=== PATIENT | female | born 1945 | race Caucasian/White ===

== ENCOUNTER → 2017-03-05 15:02 | Outpatient (CLI) | payer MEDICARE, SELFPAY | PROVIDERS: Family Provider Family Medicine Geriatric Medicine; PCP Family Medicine Geriatric Medicine; Visit Provider Family Medicine Geriatric Medicine | DX: N39.0 Urinary tract infection, site not specified (principal); L03.119 Cellulitis of unspecified part of limb | CPT/HCPCS: 87070; 87077; 87086; 87088; 87186; 87205 ==

== ENCOUNTER → 2017-03-15 14:45 | Outpatient (CLI) | payer MEDICARE, SELFPAY ==
[2017-03-15 15:17] LABS: Absolute Neutrophil Count 9.5 X10^3/uL (2.0-7.7); Basophil# 0.03 X10^3/uL; Basophil% 0.2 % (0-1); Eosinophil# 0.09 X10^3/uL; Eosinophils% 0.7 % (0-5); Hematocrit 44.6 % (37-47); Hemoglobin 14.1 g/dl (12.0-15.0); Lymphocyte % 14.6 % (19-41); Mean Corp Hgb Conc 31.6 g/gl (32-36); Mean Corpuscular Hgb 29.4 pg (27.0-32.0); Mean Corpuscular Volume 92.9 fL (81-99); Mean Platelet Vol. 10.5 fl (6.2-12.0); Monocyte# 0.87 X10^3/uL; Monocyte% 7.1 % (0-10); Neutrophil # 9.45 X10^3/uL (2.7-7.7); POSITIVE COUNT NO; POSITIVE DIFFERENTIAL NO; POSITIVE MORPHOLOGY NO; Platelet Count 295 K/mm3 (150-450); RBC Distribution Width CV 18.1 % (11.6-14.6); RBC Distribution Width SD 59.9 fl (35.1-43.9); White Blood Count 12.3 K/mm3 (4.4-11.0)
[2017-03-15 15:55] LABS: ALB/GLOB Ratio 0.9 RATIO (0.9-2.4); AST(SGOT) 17 U/L (15-37); Alanine Aminotransfer ALT/SGPT 32 U/L (13-56); Albumin, Serum 3.4 g/dL (3.2-5.0); Alkaline Phosphatase 80 U/L (45-117); Anion Gap 11 (5-15); BUN 20 mg/dL (7-18); BUN/Creat Ratio 13.2 RATIO (10-20); Calcium,Total 9.6 mg/dL (8.5-10.1); Chloride 111 mmol/L (98-107); Creatinine, Serum 1.52 mg/dL (0.55-1.02); EST Glomerular Filtration Rate 36 mL/min (>60); Est Glom Filt Rate - Afr Amer 43 mL/min (>60); Globulin 3.7 g/dL (2.2-4.2); Glucose 118 mg/dL (74-106); Potassium 4.3 mmol/L (3.5-5.1); Protein, Total 7.1 g/dL (6.4-8.2); Sodium Level 144 mmol/L (136-145)
--- NOTE | 2017-03-15 19:40 | RAD_ITS ---
STUDY: X-RAY - ABDOMEN/PELVIS REASON FOR EXAM: Female, 72 years old. Diarrhea and vomiting TECHNIQUE: Single AP view of the abdomen / pelvis. COMPARISON: None. FINDINGS: Normal visualized lung bases. There are a few air-fluid levels noted in the small and large bowel. There is no demonstrated free abdominal air. The visualized liver, spleen and kidneys are grossly normal in size and morphology. 1 cm calcification right upper quadrant. Normal soft tissue structures. Normal visualized osseous structures. RAD/Abd Inc Decub and/or Erect IMPRESSION: Gallstone or urolith mild ileus. Electronically Signed: Sree Henriquez MD at 20:48 EST , Service support ,
== END ==
PROVIDERS: Family Provider Family Medicine Geriatric Medicine; PCP Family Medicine Geriatric Medicine; Visit Provider Family Medicine Geriatric Medicine
DX: E86.0 Dehydration (principal); N18.3 Chronic kidney disease, stage 3 (moderate); N39.0 Urinary tract infection, site not specified
CPT/HCPCS: 36415; 74019; 80053; 85025; 87086; 87088

== ENCOUNTER 2017-03-15 14:54 | Outpatient (CLI) | payer MEDICARE, SELFPAY ==
[2017-03-15] MEDS: 0.9% Normal Saline 1,000 ML 500 ML IV ×2 (15:10→17:03)
[2017-03-15 15:12] VITALS: BP 139/63; PULSE 72; RESP 18; TEMP 36.1; O2SAT 97; BMI 45.8
--- NOTE | 2017-03-15 17:14 | NURSING ---
RN TO RN REPORT CALLED TO [facility] ON PCU, PT TRANSPORTED TO PCU VIA WHEELCHAIR ACCOMPANIED BY RN FOR REMAINDER OF TREATMENT. PT STABLE, NO PROBLEMS NOTED
[2017-03-15 17:28] VITALS: BP 188/74; PULSE 74; RESP 16; TEMP 36.8; O2SAT 99
[2017-03-15 18:46] VITALS: BP 138/67; PULSE 78; RESP 12; O2SAT 98
== END 2017-03-15 19:30 | disposition home or self-care (01) ==
LOC: MEDOUTP 16:34 → PCU 17:18
PROVIDERS: Family Provider Family Medicine Geriatric Medicine; PCP Family Medicine Geriatric Medicine; Visit Provider Family Medicine Geriatric Medicine
DX: E86.0 Dehydration (principal); R11.2 Nausea with vomiting, unspecified; R19.7 Diarrhea, unspecified; N39.0 Urinary tract infection, site not specified; N18.3 Chronic kidney disease, stage 3 (moderate)
CPT/HCPCS: 96360; 96361; 36415; 74019; 80053; 85025; 87086; 87088; J7030; A4216

== ENCOUNTER → 2017-03-16 11:21 | Outpatient (CLI) | payer MEDICARE, SELFPAY ==
[2017-03-15 15:12] VITALS: BMI 45.8
[2017-03-15 18:46] VITALS: BP 138/67
== END ==
LOC: LAB 11:24 → LABSPEC 11:26
PROVIDERS: Family Provider Family Medicine Geriatric Medicine; PCP Family Medicine Geriatric Medicine; Visit Provider Family Medicine Geriatric Medicine
DX: R19.7 Diarrhea, unspecified (principal)
CPT/HCPCS: 87493

== ENCOUNTER 2017-04-15 14:26 | Emergency (ER) | payer MEDICARE, SELFPAY ==
[2017-04-15 14:27] VITALS: BP 156/75; PULSE 73; RESP 18; TEMP 36.6; O2SAT 97; BMI 41.6
--- NOTE | 2017-04-15 15:05 | RAD_ITS ---
STUDY: X-RAY CHEST REASON FOR EXAM: Female, 72 years old. Shortness of breath TECHNIQUE: Frontal view of the chest COMPARISON: 09/01/2016 FINDINGS: The lungs are clear. There are no pleural effusions. There is no pneumothorax. The heart is normal in size. The patient is status post sternotomy. The visualized osseous structures are within normal limits. RAD/Chest PA and Lateral IMPRESSION: No acute thoracic pathology. Electronically Signed: Andreas Polanco, at 16:01 EDT Tel , Service support ,
--- NOTE | 2017-04-15 15:05 | EKG12_ITS ---
Test Reason : SOB Blood Pressure : / mmHG Vent. Rate : 069 BPM Atrial Rate : 069 BPM P-R Int : 148 ms QRS Dur : 074 ms QT Int : 410 ms P-R-T Axes : 020 005 131 degrees QTc Int : 439 ms Normal sinus rhythm Left ventricular hypertrophy with repolarization abnormality Abnormal ECG Confirmed by BLACK HATCH, PARDEEP ([id number]), clinical editor SHAHNAZ MARINA ([id number]) on 04/18/2017 4:09:03 PM Referred By: JAQUELIN Confirmed By:PARDEEP CLEANING MD
--- NOTE | 2017-04-15 15:16 | ED.VISSUMM ---
- ER Visit Summary Date of Service: 04/15/17 Chief Complaint: Increased urination with discomfort and shortness of breath History of Present Illness: The patient is a 72 F presents with shortness of breath for the past 2 days. The shortness breath has gotten worse. She does complain of mild dyspnea on exertion. Denies orthopnea PND. She does report increased urination. States she has got 25 times since had a 11 pound weight loss. She does complain of slight discomfort with urination. She has not increased her Lasix dose. She does complain of hot and cold. She denies fever or chills. She denies any visual, ocular or auditory symptoms. She denies chest pain, palpitations or heart racing. She denies cough. She denies abdominal pain, nausea, vomiting or diarrhea. She denies constipation. Denies black or maroon stool. She denies myalgias arthralgias. She does complain of generalized weakness without paresthesia, anesthesia or motor weakness. She denies headache. She denies bruising easily even though she is on Xarelto. He is on Xarelto for proximal A. fib. And there is a remote history of DVT many years ago. She has no allergic type reactions or history of. Physical Examination: Patient is obese with a BMI of 41.7. Vital signs remarkable blood pressure 156/75. Head is atraumatic normocephalic. Pupils are equal round reactive. Extraocular muscles are intact. TMs are pearly white with landmarks noted. Nares patent with no drainage. Posterior pharynx without erythema or exudate. Uvula is midline. There is no dysphonia or dysphasia. Trachea is midline. There is no stridor with auscultation of the neck. Heart is regular without murmur, gallop or rub. S1 and S2 are normal. Lungs are clear to auscultation with good movement of air bilaterally. There is soft nontender. Bowel sounds are present but diminished. He does have 2-3+ pitting edema of the feet and both legs. There is a dressing secondary to leg ulcer distal left leg. She is alert and oriented with a nonfocal neurologic exam. Test Results: White count is 14.3 thousand with 80 segs no bands. Electrode panel is remarkable for BUN and creatinine of 45 1.45. Urine is positive for leukoesterase, nitrites and blood. Micro reveals pyuria with 10-25 RBCs 5 epithelial cells and 1+ bacteria. Emergency Department Course and Treatment: I await patient's symptoms of dyspnea will obtain EKG, chest x-ray appropriate blood work. Need to rule out cardiac versus pulmonary etiology. Since she is on Xarelto is not tachycardic or tachypneic doubt pulmonary embolus. Also will obtain UA to assess her complaint of frequency with discomfort. Likewise were obtained since she reports 11 pound weight loss and urinating 25 times a last 36-48 hours. Treatment Plan: Urine culture was sent since patient has numerous allergies. She did receive a dose of Rocephin in the emergency department and was discharged prescription for Macrobid based on her numerous allergies. Disposition: Discharge to home with appropriate home-going instructions for UTI Impression: 1. Urinary tract infection, acute 2. Prerenal azotemia with end-stage renal disease, mild 3. History of type 2 diabetes 4. History of hypertension 5. History of paroxysmal atrial fib on Coumadin This note was generated with [employer] dictation software. It may contain incorrect words, spelling, and punctuation that were not noted in review of the chart prior to signing ED Disposition - Plan for ED Patient: Disposition: Home or Assisted Living Chief Complaint: Shortness of Breath Instructions: ED UTI Cystitis Female Prescriptions: Nitrofurantoin Macrocrystals [Macrobid] 100 mg PO Q12 #14 cap Referrals: Octaviano Franco Chi, MD [Primary Care Provider] - 3-5 Days if not improving
[2017-04-15 15:34] LABS: Absolute Lymphocyte Count 1.64 X10^3/ul (0.83-4.51); Absolute Neutrophil Count 11.3 X10^3/uL (2.0-7.7); Basophil# 0.03 X10^3/uL; Basophil% 0.2 % (0-1); Eosinophils% 0.7 % (0-5); Hematocrit 43.6 % (37-47); Hemoglobin 14.2 g/dl (12.0-15.0); Lymphocyte # 1.64 X10^3/ul (4.0); Lymphocyte % 11.5 % (19-41); Mean Corp Hgb Conc 32.6 g/gl (32-36); Mean Corpuscular Hgb 29.6 pg (27.0-32.0); Monocyte# 1.06 X10^3/uL; Monocyte% 7.4 % (0-10); Neutrophil # 11.31 X10^3/uL (2.7-7.7); Neutrophil % 79.4 % (47-70); Platelet Count 243 K/mm3 (150-450); RBC Distribution Width CV 16.8 % (11.6-14.6); RBC Distribution Width SD 54.7 fl (35.1-43.9); Red Blood Count 4.79 M/mm3 (4.2-5.4); White Blood Count 14.3 K/mm3 (4.4-11.0)
[2017-04-15 15:37] LABS: POSITIVE COUNT NO; POSITIVE DIFFERENTIAL NO; POSITIVE MORPHOLOGY NO
[2017-04-15 15:46] LABS: Anion Gap 8 (5-15); BUN 45 mg/dL (7-18); BUN/Creat Ratio 29.2 RATIO (10-20); Calcium,Total 9.1 mg/dL (8.5-10.1); Chloride 110 mmol/L (98-107); Creatinine, Serum 1.54 mg/dL (0.55-1.02); EST Glomerular Filtration Rate 35 mL/min (>60); Est Glom Filt Rate - Afr Amer 42 mL/min (>60); Estimated Creatinine Clearance 23.37 ml/min; Glucose 145 mg/dL (74-106); Potassium 4.9 mmol/L (3.5-5.1); Sodium Level 142 mmol/L (136-145)
[2017-04-15 16:19] LABS: Mucous, Urine 0 SEEN /hpf (<or=2+); Red Blood Cells-Urine 0 SEEN /hpf (0-5)
[2017-04-15 16:31] LABS: Color, Urine Yellow (Yellow); Glucose, Dipstick Normal (Normal); Ketone-Dipstick Negative (Negative); Leukocyte Esterase-Dipstick 500 /ul (Negative); Nitrite-Dipstick Positive (Negative); Occult Blood-Urine 25 /ul (Negative); Protein-Dipstick 15 mg/dl (Negative); Urine Bilirubin Dipstick Negative (Negative); Urine Clarity Cloudy (Clear); Urine Urobilinogen Normal (Normal)
[2017-04-15 16:36] VITALS: BP 162/92; PULSE 71; RESP 18; O2SAT 99
[2017-04-15 16:41] LABS: Squamous Epithelial Cells - UA 5-10 SEEN /hpf (5-10); White Blood Cells 10-25 SEEN /hpf (0-5)
[2017-04-15 16:43] LABS: Bacteria 1+ /hpf (None Seen); Renal Epithelial Cells 0-5 SEEN /hpf (0-5)
[2017-04-15] MEDS: Ceftriaxone 1 GM/50 mL Premix x1 IV (17:25)
[2017-04-15 18:00] VITALS: BP 140/79; PULSE 68; RESP 17; O2SAT 98
== END 2017-04-15 18:41 | disposition home or self-care (01) ==
PROVIDERS: Emergency Provider Emergency Medicine; Family Provider Family Medicine Geriatric Medicine; PCP Family Medicine Geriatric Medicine
DX: N39.0 Urinary tract infection, site not specified (principal); R79.89 Other specified abnormal findings of blood chemistry; I12.0 Hypertensive chronic kidney disease with stage 5 chronic kidney disease or end stage renal disease; N18.6 End stage renal disease; E11.9 Type 2 diabetes mellitus without complications; I48.0 Paroxysmal atrial fibrillation; I25.10 Atherosclerotic heart disease of native coronary artery without angina pectoris; E78.00 Pure hypercholesterolemia, unspecified; M06.9 Rheumatoid arthritis, unspecified; E66.9 Obesity, unspecified; Z68.41 Body mass index [BMI] 40.0-44.9, adult; Z86.718 Personal history of other venous thrombosis and embolism; Z79.01 Long term (current) use of anticoagulants; Z79.84 Long term (current) use of oral hypoglycemic drugs; Z79.02 Long term (current) use of antithrombotics/antiplatelets; Z79.891 Long term (current) use of opiate analgesic; Z79.899 Other long term (current) drug therapy
CPT/HCPCS: 71046; 80048; 81001; 84484; 85025; 87086; 87088; 87186; 93005; 96365; 99285; J7050; A4216

== ENCOUNTER → 2017-04-18 16:55 | Outpatient (CLI) | payer MEDICARE, SELFPAY ==
[2017-04-18 17:52] LABS: Absolute Lymphocyte Count 1.84 X10^3/ul (0.83-4.51); Basophil# 0.02 X10^3/uL; Basophil% 0.2 % (0-1); Eosinophil# 0.33 X10^3/uL; Eosinophils% 2.5 % (0-5); Hematocrit 44.9 % (37-47); Hemoglobin 14.6 g/dl (12.0-15.0); Lymphocyte # 1.84 X10^3/ul (4.0); Lymphocyte % 13.8 % (19-41); Mean Corp Hgb Conc 32.5 g/gl (32-36); Mean Corpuscular Hgb 30.2 pg (27.0-32.0); Mean Corpuscular Volume 92.8 fL (81-99); Mean Platelet Vol. 11.2 fl (6.2-12.0); Monocyte# 0.98 X10^3/uL; Monocyte% 7.4 % (0-10); Neutrophil # 9.96 X10^3/uL (2.7-7.7); Neutrophil % 74.8 % (47-70); Platelet Count 178 K/mm3 (150-450); RBC Distribution Width CV 16.5 % (11.6-14.6); RBC Distribution Width SD 54.6 fl (35.1-43.9); Red Blood Count 4.84 M/mm3 (4.2-5.4); White Blood Count 13.3 K/mm3 (4.4-11.0)
[2017-04-18 17:56] LABS: POSITIVE COUNT NO; POSITIVE DIFFERENTIAL NO; POSITIVE MORPHOLOGY NO
[2017-04-18 18:06] LABS: D-Dimer Quantitative (DVT/PE) 0.57 FEU/ug/m (0.27-0.49)
[2017-04-18 18:16] LABS: BNP,B-Type NATRIURETIC PEPTIDE 62.1 pg/mL (0-100)
[2017-04-18 19:15] LABS: AST(SGOT) 18 U/L (15-37); Alanine Aminotransfer ALT/SGPT 34 U/L (13-56); Albumin, Serum 3.3 g/dL (3.2-5.0); Alkaline Phosphatase 51 U/L (45-117); Anion Gap 11 (5-15); BUN 51 mg/dL (7-18); BUN/Creat Ratio 30.5 RATIO (10-20); CPK Total, Creatine Kinase 70 U/L (26-192); Chloride 106 mmol/L (98-107); Creatinine, Serum 1.67 mg/dL (0.55-1.02); EST Glomerular Filtration Rate 32 mL/min (>60); Est Glom Filt Rate - Afr Amer 39 mL/min (>60); Globulin 3.2 g/dL (2.2-4.2); Glucose 75 mg/dL (74-106); Potassium 5.5 mmol/L (3.5-5.1); Protein, Total 6.5 g/dL (6.4-8.2); Sodium Level 140 mmol/L (136-145); Thyroid Stim Hormone (TSH) 0.75 uIU/mL (0.358-3.74)
== END ==
LOC: POLAB3 16:56
PROVIDERS: Family Provider Family Medicine Geriatric Medicine; PCP Family Medicine Geriatric Medicine; Visit Provider Family Medicine Geriatric Medicine
DX: I10 Essential (primary) hypertension (principal); R07.9 Chest pain, unspecified; R06.02 Shortness of breath
CPT/HCPCS: 36415; 71046; 80053; 82550; 83874; 83880; 84443; 84484; 85025; 85379; 93005

== ENCOUNTER → 2017-04-18 20:29 | Outpatient (CLI) | payer MEDICARE, SELFPAY ==
--- NOTE | 2017-04-18 20:46 | RAD_ITS ---
STUDY: X-RAY CHEST REASON FOR EXAM: Female, 72 years old. Dyspnea TECHNIQUE: PA and lateral views of the chest. COMPARISON: Previous study of 04/15/2017 FINDINGS: The lungs are clear and expanded. There is no demonstrated pleural abnormality. Normal size heart. Status post sternotomy changes are present. Normal mediastinum and alee. Normal visualized pulmonary arteries. There are calcified plaques of the aortic arch. There is demineralization of the osseous structures. There are diffuse degenerative changes of the thoracic spine. Normal visualized ribs, clavicles, and shoulders. There is no demonstrated abnormality of the visualized soft tissue structures of the upper abdomen. RAD/Chest PA and Lateral IMPRESSION: Status post sternotomy. Calcified plaques of the aortic arch. Generalized osteopenia. Diffuse degenerative changes of the thoracic spine. No acute cardiopulmonary disease process is seen. Chest findings are stable in the interval. Electronically Signed: Lester Maurer MD at 21:36 EDT , Service support ,
--- NOTE | 2017-04-18 21:03 | EKG12_ITS ---
Test Reason : SOB Blood Pressure : / mmHG Vent. Rate : 082 BPM Atrial Rate : 082 BPM P-R Int : 152 ms QRS Dur : 074 ms QT Int : 380 ms P-R-T Axes : -17 002 131 degrees QTc Int : 443 ms Normal sinus rhythm Marked ST abnormality, possible lateral subendocardial injury Abnormal ECG When compared with ECG of 15-APR-2017 15:14, T wave inversion less evident in Lateral leads Confirmed by SILVIA STUART ([id number]), editorial assistant SHAHNAZ MARINA ([id number]) on 04/19/2017 10:36:39 AM Referred By: RAYRAY Confirmed By:SILVIA STUART
== END ==
PROVIDERS: Family Provider Family Medicine Geriatric Medicine; PCP Family Medicine Geriatric Medicine; Visit Provider Family Medicine Geriatric Medicine
DX: R07.9 Chest pain, unspecified (principal)
CPT/HCPCS: 71046; 93005

== ENCOUNTER → 2017-04-19 10:33 | Outpatient (CLI) | payer MEDICARE, SELFPAY ==
--- NOTE | 2017-04-19 10:35 | RAD_ITS ---
STUDY: X-RAY CHEST REASON FOR EXAM: Female, 72 years old. Shortness of breath. TECHNIQUE: PA and lateral views of the chest. COMPARISON: Comparison is made with prior study dated April 18, 2017. FINDINGS: The lungs are clear and expanded. There is no demonstrated pleural abnormality. Sternal cerclage wires and vascular clips are present from a prior sternotomy and coronary artery bypass graft procedure (CABG). Normal mediastinum and alee. Normal visualized pulmonary arteries. There is atherosclerotic tortuosity of the aortic arch and descending thoracic aorta. There are diffuse degenerative changes of the visualized thoracic spine. Increased kyphosis. Normal visualized ribs, clavicles, and shoulders. There is no demonstrated abnormality of the visualized soft tissue structures of the upper abdomen. RAD/Chest PA and Lateral IMPRESSION: No acute abnormality is seen. Electronically Signed: Milo Hughes MD at 11:17 EDT Tel [phone], Service support ,
--- NOTE | 2017-04-19 10:53 | NM_ITS ---
CLINICAL: Female, 72 years old. Shortness of breath. NUCLEAR VENTILATION/PERFUSION - LUNG TECHNIQUE: The patient was administered 5.5 mCi of Tc MAA followed by a perfusion lung scan. The patient was administered 49.8 mCi of Tc DTPA aerosol followed by a ventilation lung scan. Comparison made to prior chest radiograph dated . COMPARISON STUDIES : Comparison is made with prior chest radiograph done earlier in the day. FINDINGS: The pulmonary perfusion study demonstrates uniform perfusion throughout both lung gallegos. There are no demonstrated segmental or subsegmental perfusion defects The ventilation study demonstrates uniform ventilation throughout both lung gallegos. There are no segmental or subsegmental ventilation abnormalities. NM/Lung Scan Vent/Perf IMPRESSION: Normal 99m Tc MAA pulmonary perfusion Tc DTPA aerosol ventilation imaging survey, according to revised PIOPED interpretive criteria. Electronically Signed: Milo Hughes MD at 12:38 EDT Tel [phone], Service support ,
== END ==
PROVIDERS: Family Provider Family Medicine Geriatric Medicine; PCP Family Medicine Geriatric Medicine; Visit Provider Family Medicine Geriatric Medicine
DX: R06.02 Shortness of breath (principal)
CPT/HCPCS: 71046; 78582; A9540; A9567

== ENCOUNTER 2017-04-26 09:19 | Emergency (ER) | payer MEDICARE, SELFPAY ==
[2017-04-26 09:21] VITALS: BP 140/58; PULSE 64; RESP 16; TEMP 36.6; O2SAT 97; BMI 41.8
--- NOTE | 2017-04-26 09:40 | RAD_ITS ---
STUDY: X-RAY - LEFT TIBIA AND FIBULA REASON FOR EXAM: Female, 72 years old. Pain following injury. TECHNIQUE: view(s) of the tibia and fibula were obtained. COMPARISON: None. FINDINGS: Normal visualized tibia. Normal visualized fibula. Diffuse soft tissue swelling. RAD/Tibia & Fibula 2 Views IMPRESSION: Diffuse soft tissue swelling. Electronically Signed: Milo Hughes MD at 10:56 EDT Tel [phone], Service support ,
--- NOTE | 2017-04-26 09:40 | CT_ITS ---
STUDY: CT BRAIN WITHOUT CONTRAST REASON FOR EXAM: Female, 72 years old. Laceration following a recent fall. RADIATION DOSAGE (If Supplied By Facility): CTDIvol = ( 44.99 ) mGy, DLP = ( 745.49 ) mGycm TECHNIQUE: Transaxial CT imaging of the brain was performed without administration of intravenous contrast material. Individualized dose optimization techniques were used for this CT. COMPARISON: Comparison is made with prior study dated September 10, 2015. FINDINGS: Soft tissue calcifications overlying the frontal bone. This is unchanged. Normal calvarium. There is moderate cerebral atrophy with widening of the extra-axial spaces and ventricular dilatation. There are areas of decreased attenuation within the white matter tracts of the supratentorial brain, consistent with microvascular disease changes. Normal basal ganglia and thalami. Normal brainstem. There is mild cerebellar atrophy. There is no intracranial hemorrhage. There are no findings of an acute ischemic infarction. Atherosclerotic calcification of the cavernous portions of the internal carotid arteries bilaterally. Normal visualized paranasal sinuses. CT/Brain/Head without Contrast IMPRESSION: Chronic involutional changes of the brain. Electronically Signed: Milo Hughes MD at 11:20 EDT Tel [phone], Service support ,
--- NOTE | 2017-04-26 09:41 | ED.VISSUMM ---
- ER Visit Summary Date of Service: 04/26/17 Chief Complaint: Fall History of Present Illness: The patient is a [address] Franco. She reports that she was sitting on the toilet seat drying her legs when it shifted and she fell off this. She suffered a laceration to her left leg. She reports she has pain of the 7 out of 10 severity. Her tetanus is up-to-date. She also reports she hit her ahead. She denies loss of consciousness. No neck, back, shoulder, wrist, or hip pain. Patient reports that she is currently being treated for a UTI. States that she cannot take the vast majority of oral antibiotics and has been getting a shot of Rocephin IM daily and Dr. Franco's office. Physical Examination: Vitals: Stable. Afebrile. Neck: No vertebral tenderness. Full ROM without difficulty. Cleared by NEXUS criteria. Back: No vertebral tenderness. General: A&O x 3. NAD. Cardiovascular exam: Regular rate and rhythm, no murmur, rub or gallop. Respiratory exam: Chest nontender. No crepitus. Clear to auscultation bilaterally. No wheezes or stridor. Abdominal exam: Soft, nontender, nondistended, normal bowel sounds. No pain in RUQ or LUQ specifically. No peritoneal signs. Extremity: 10 cm laceration to the proximal lateral portion of her left leg. Moderate tenderness palpation surrounding this. 2+ dorsalis pedis pulse. 2+ pitting edema of her lower extremities bilaterally.. Test Results: CT brain shows chronic changes. X-rays negative for fracture. Emergency Department Course and Treatment: Patient was treated with oxycodone for her pain. She had her wound anesthetized and repaired. She tolerated it well. She is given dose Rocephin IM. Treatment Plan: The patient was discussed with Dr. Franco. She will be discharged instructions to have her sutures removed in 10-14 days. Return to the emergency department for any worsening symptoms. Disposition: To home in improved and stable condition. Impression: 1. Fall. 2. Left leg laceration, 10 cm, repaired. 3. UTI. 3. Coagulopathy on Xarelto. Procedure note: Wound was cleansed with chlorhexidine soap. Anesthetized with 1% lidocaine without epinephrine. Copiously irrigated with normal saline. Wound was explored there is no foreign material present. It was closed with 11 simple interrupted 4-0 ethilon sutures. The patient tolerated it well. This note was generated with [employer] dictation software. It may contain incorrect words, spelling, and punctuation that were not noted in review of the chart prior to signing ED Disposition - Plan for ED Patient: Chief Complaint: Laceration Instructions: ED Laceration Ext Sutr Stap Tape Prescriptions: Oxycodone HCl/Acetaminophen [Percocet 5/325] 1 tablet PO Q6H PRN PRN 5 Days #20 tablet PRN Reason: Pain Docusate Sodium [Colace] 100 mg PO DAILY #20 capsule Referrals: Octaviano Franco Chi, MD [Primary Care Provider] - 10-14 Days suture removal
--- NOTE | 2017-04-26 09:52 | NURSING ---
NO LW OR POA
[2017-04-26] MEDS: oxyCODONE 5 MG Tablet 10 MG PO (10:36)
[2017-04-26] MEDS: Ceftriaxone 1 GM Vial IM (10:37)
[2017-04-26 13:06] VITALS: BP 139/79; PULSE 76; RESP 16; O2SAT 94
== END 2017-04-26 13:07 | disposition home or self-care (01) ==
LOC: ED 10:30
PROVIDERS: Emergency Provider Emergency Medicine; Family Provider Family Medicine Geriatric Medicine; PCP Family Medicine Geriatric Medicine
DX: S81.812A Laceration without foreign body, left lower leg, initial encounter (principal); N39.0 Urinary tract infection, site not specified; Z79.02 Long term (current) use of antithrombotics/antiplatelets; I25.110 Atherosclerotic heart disease of native coronary artery with unstable angina pectoris; E11.9 Type 2 diabetes mellitus without complications; I10 Essential (primary) hypertension; Z79.84 Long term (current) use of oral hypoglycemic drugs; E78.00 Pure hypercholesterolemia, unspecified; Z87.891 Personal history of nicotine dependence; Z79.891 Long term (current) use of opiate analgesic; Z79.899 Other long term (current) drug therapy; W18.11XA Fall from or off toilet without subsequent striking against object, initial encounter; Y93.89 Activity, other specified; Y92.002 Bathroom of unspecified non-institutional (private) residence as the place of occurrence of the external cause; Y99.8 Other external cause status
CPT/HCPCS: 12004; 70450; 73590; 96372; 99285

== ENCOUNTER → 2017-04-27 12:50 | Outpatient (CLI) | payer MEDICARE, SELFPAY ==
[2017-04-27 13:33] LABS: Absolute Lymphocyte Count 2.42 X10^3/ul (0.83-4.51); Absolute Neutrophil Count 7.3 X10^3/uL (2.0-7.7); Basophil# 0.03 X10^3/uL; Basophil% 0.3 % (0-1); Eosinophil# 0.04 X10^3/uL; Eosinophils% 0.4 % (0-5); Hematocrit 43.3 % (37-47); Hemoglobin 13.7 g/dl (12.0-15.0); Lymphocyte # 2.42 X10^3/ul (4.0); Lymphocyte % 22.7 % (19-41); Mean Corp Hgb Conc 31.6 g/gl (32-36); Mean Corpuscular Hgb 29.6 pg (27.0-32.0); Mean Corpuscular Volume 93.5 fL (81-99); Mean Platelet Vol. 10.1 fl (6.2-12.0); Monocyte# 0.79 X10^3/uL; Monocyte% 7.4 % (0-10); Neutrophil # 7.28 X10^3/uL (2.7-7.7); Neutrophil % 68.4 % (47-70); POSITIVE COUNT NO; POSITIVE DIFFERENTIAL NO; POSITIVE MORPHOLOGY NO; Platelet Count 239 K/mm3 (150-450); RBC Distribution Width CV 16.5 % (11.6-14.6); RBC Distribution Width SD 56.4 fl (35.1-43.9); Red Blood Count 4.63 M/mm3 (4.2-5.4); White Blood Count 10.6 K/mm3 (4.4-11.0)
[2017-04-27 13:51] LABS: AST(SGOT) 24 U/L (15-37); Alanine Aminotransfer ALT/SGPT 44 U/L (13-56); Albumin, Serum 3.2 g/dL (3.2-5.0); Alkaline Phosphatase 51 U/L (45-117); Anion Gap 9 (5-15); BUN 65 mg/dL (7-18); BUN/Creat Ratio 25.3 RATIO (10-20); Calcium,Total 9.7 mg/dL (8.5-10.1); Chloride 96 mmol/L (98-107); Cholesterol 189 mg/dL (200); Creatinine, Serum 2.57 mg/dL (0.55-1.02); EST Glomerular Filtration Rate 19 mL/min (>60); Est Glom Filt Rate - Afr Amer 24 mL/min (>60); Globulin 3.2 g/dL (2.2-4.2); Glucose 127 mg/dL (74-106); High Density Lipoprotein 55 mg/dL; Potassium 5.2 mmol/L (3.5-5.1); Protein, Total 6.4 g/dL (6.4-8.2); Sodium Level 135 mmol/L (136-145); Thyroid Stim Hormone (TSH) 0.77 uIU/mL (0.358-3.74); Triglycerides 207 mg/dL; Very Low Density Lipoprotein 41 mg/dL (5-40)
== END ==
PROVIDERS: Family Provider Family Medicine Geriatric Medicine; PCP Family Medicine Geriatric Medicine; Visit Provider Family Medicine Geriatric Medicine
DX: E11.9 Type 2 diabetes mellitus without complications (principal); E55.9 Vitamin D deficiency, unspecified; E78.4 Other hyperlipidemia; I10 Essential (primary) hypertension
CPT/HCPCS: 36415; 80053; 80061; 82306; 84443; 85025

== ENCOUNTER → 2017-05-01 15:03 | Outpatient (CLI) | payer MEDICARE, SELFPAY ==
[2017-05-01 16:24] LABS: Absolute Lymphocyte Count 1.77 X10^3/ul (0.83-4.51); Absolute Neutrophil Count 6.6 X10^3/uL (2.0-7.7); Basophil# 0.02 X10^3/uL; Basophil% 0.2 % (0-1); Eosinophil# 0.08 X10^3/uL; Eosinophils% 0.9 % (0-5); Hematocrit 40.2 % (37-47); Hemoglobin 12.9 g/dl (12.0-15.0); Lymphocyte # 1.77 X10^3/ul (4.0); Lymphocyte % 19.2 % (19-41); Mean Corp Hgb Conc 32.1 g/gl (32-36); Mean Corpuscular Hgb 30.4 pg (27.0-32.0); Mean Corpuscular Volume 94.6 fL (81-99); Mean Platelet Vol. 10.5 fl (6.2-12.0); Monocyte# 0.72 X10^3/uL; Monocyte% 7.8 % (0-10); Neutrophil # 6.59 X10^3/uL (2.7-7.7); Neutrophil % 71.4 % (47-70); Platelet Count 219 K/mm3 (150-450); RBC Distribution Width CV 16.1 % (11.6-14.6); RBC Distribution Width SD 53.9 fl (35.1-43.9); Red Blood Count 4.25 M/mm3 (4.2-5.4); White Blood Count 9.2 K/mm3 (4.4-11.0)
[2017-05-01 16:32] LABS: POSITIVE COUNT NO; POSITIVE DIFFERENTIAL NO; POSITIVE MORPHOLOGY NO
[2017-05-01 16:48] LABS: Anion Gap 10 (5-15); BUN 42 mg/dL (7-18); BUN/Creat Ratio 28.6 RATIO (10-20); Calcium,Total 9.3 mg/dL (8.5-10.1); Chloride 106 mmol/L (98-107); Creatinine, Serum 1.47 mg/dL (0.55-1.02); EST Glomerular Filtration Rate 37 mL/min (>60); Est Glom Filt Rate - Afr Amer 45 mL/min (>60); Glucose 156 mg/dL (74-106); Potassium 4.8 mmol/L (3.5-5.1); Sodium Level 140 mmol/L (136-145)
== END ==
PROVIDERS: Family Provider Family Medicine Geriatric Medicine; PCP Family Medicine Geriatric Medicine; Visit Provider Family Medicine Geriatric Medicine
DX: D64.9 Anemia, unspecified (principal); N18.3 Chronic kidney disease, stage 3 (moderate)
CPT/HCPCS: 36415; 80048; 85025

== ENCOUNTER 2017-05-03 11:00 | Outpatient (RCR) | payer MEDICARE, SELFPAY ==
[2017-04-05 10:32] VITALS: BP 150/73; PULSE 59; RESP 18; TEMP 35.6
--- NOTE | 2017-04-05 13:30 | HP.PCM_ITS ---
(1) Ulcer of left lower extremity with fat layer exposed Status: Acute Current Visit: Yes Code(s): L97.922 - Non-pressure chronic ulcer of unspecified part of left lower leg with fat layer exposed (2) PVD (peripheral vascular disease) Status: Suspected Current Visit: Yes Code(s): I73.9 - Peripheral vascular disease, unspecified (3) Malnutrition Status: Acute Current Visit: Yes Code(s): E46 - Unspecified protein-calorie malnutrition (4) Controlled diabetes mellitus Status: Acute Current Visit: Yes Code(s): E11.9 - Type 2 diabetes mellitus without complications (5) Edema, lower extremity Status: Acute Current Visit: Yes Code(s): R60.0 - Localized edema History of Present Illness Date of Service: 04/05/17 Chief Complaint: Left anterior lower leg ulceration that will not heal. History of Wound: This 72 year old female has significant history of diabetes and multiple sclerosis, bilateral traumatic leg wounds, and other comorbidities. She presents to office today after being referred by Dr. Franco. Per his note, the patient had finished up a prescription for keflex and is on rocephin. Patient states that she recently got a new bed. She says since she is short she had to get a stool in order to get onto her bed. She fell on the stool and got an ulcer on the left anterior leg. She says this happed close to two weeks ago and has not seen much of an improvment since. She has been dressing the ulcer site with bacitracin. She denies any purulence, malodor, redness around the ulcer. She also denies any feelings of nausea, vomiting, fever, or chills currently. Past Medical History Past Medical History: Chronic Problems S/P PTCA (percutaneous transluminal coronary angioplasty) (Chronic) S/P CABG (coronary artery bypass graft) (Chronic) Paroxysmal atrial fibrillation (Chronic) CAD (coronary artery disease) (Chronic) DM2 (diabetes mellitus, type 2) (Chronic) Dyslipidemia (Chronic) Morbid obesity (Chronic) Multiple sclerosis (Chronic) Trigeminal neuralgia (Chronic) Carcinoma of lip (Chronic) Hyperlipidemia (Chronic) Hypertension (Chronic) Contusion of left lower leg (Chronic) Infected traumatic hematoma wound left anterior leg Diabetic ulcer of both lower extremities (Chronic) Diabetic ulcer of lower extremity (Chronic) Ulcer of left lower leg (Chronic) Ulcer of right leg (Chronic) Ulcer of left lower extremity (Chronic) Ulcer of left cabrera (Chronic) Venous insufficiency of both lower extremities (Chronic) Surgical History: angioplasty, appendectomy, cholecystectomy, coronary bypass surgery, hysterectomy, tonsillectomy, - - R ankle surgery with hardware. placement of stents (cardiac or lower extremity. patient is unsure). excision upper lip carcinoma. Incision and drainage and excisional debridement infected traumatic open hematoma wound right anterior leg (90 cm2) and incision and drainage and excisional debridement infected traumatic open hematoma wound left anterior leg (72 cm2) - 12/29/14. Allergies/Adverse Reactions: Allergies ciprofloxacin [From Cipro] Allergy (Verified 09/07/16 15:33) Hives ciprofloxacin HCl [From Cipro] Allergy (Verified 09/07/16 15:33) Hives Latex, Natural Rubber Allergy (Verified 09/07/16 15:33) Rash Penicillins [PCN] Allergy (Verified 09/07/16 15:33) Hives Home Medications: Ambulatory Orders Medication Instructions Recorded Gabapentin [Neurontin] 800 mg PO TIDCM 09/01/16 Metoprolol Tartrate [Lopressor 50 mg PO BID 09/01/16 (beta man)] Mirabegron [Myrbetriq] 1 tab PO DAILY 09/01/16 Nitroglycerin [Nitrostat] 0.4 mg SUBLINGUAL Q5M PRN 09/01/16 Pantoprazole Sodium [Protonix] 40 mg PO DAILY 09/01/16 Potassium Chloride [K-Dur] 10 meq PO BID 09/01/16 Rivaroxaban [Xarelto] 15 mg PO DAILY 09/01/16 Amiodarone HCl [Cordarone] 200 mg PO DAILY #90 tablet 09/02/16 Metformin HCl 1 tab PO DAILY 09/07/16 Furosemide [Lasix] 40 mg PO DAILY 09/11/16 magnesium oxide 400 mg tablet 400 mg PO BID #180 tab 01/16/17 losartan 100 mg tablet 100 mg PO DAILY #90 tab 02/23/17 Clotrimazole/Betamethasone 1 applic TOPICAL BID 03/15/17 [Lotrisone] Docusate Sodium [Colace] 50 mg PO DAILY 03/15/17 Doxycycline 100 mg PO BID 03/15/17 Spironolactone 25 mg PO DAILY 03/15/17 - Family History Maternal Heart Disease, Hypertension Paternal Heart Disease, Hypertension, - - skin cancer. Sibling Diabetes Lives: With Family - Sister Smoking Status: Former smoker Review of Systems Constitutional: Denies: Chills, Fever, Weight Change Cardiovascular: Denies: Chest Pain, Palpitations Respiratory: Denies: Cough, Shortness of Breath Musculoskeletal: Reports: Leg Pain - Left anterior lower leg Skin: Reports: Wounds - Ulcer to the anterior lower left leg Neurological: Denies: Numbness, Tingling - Physical Exam Vital Signs Temp Pulse Resp BP 96.0 F L 59 L 18 150/73 H 04/05/17 10:32 04/05/17 10:32 04/05/17 10:32 04/05/17 10:32 General: Alert, Oriented x3, Cooperative, No apparent distress Extremities: Capillary Refill Less than 3 Seconds, No Calf Tenderness - Negative Sunita and Abraham sign, Edema - Bilateral lower extremity edema, Peripheral Pulses Normal - DP pulses palpable and PT pulses nonpalpable due to marti-malleolar pitting edema Skin: Ulcer/ Wound - Ulcer appreciated to the anterior left lower leg. Ulcer measurements are noted below. Ulcer base is a mixture of granular tissue, adherent slough, fibrin, and hyperkeratotic rim. Slight serous drainage appreciated, however no purulence was noted. No increase in warmth, no probing , no tracking, no undermining, and no surrounding cellulitis appreciated at this time. No other signs of local infection appreciated. Wound Measurements and Assessment WC - Nurse 1 - General Ulcer Measurement Start: 04/05/17 10:32 Freq: Status: Active Protocol: Activity Type Activity Date Activity User E-Sign Co-Sign Detail Recorded Client Recorded Date Recorded By Document 04/05/17 10:32 [id number] 04/05/17 10:42 04/05/17 10:32 Wound Center Nurse 1 [Ulcer Assessment] #1,left lower medial lef -Combined with other wound No -Current Size (cm) - Length 2.4 -Current Size (cm) - Width 1.3 -Current Size (cm) - Depth 0.1 -Total Square Cm 3.12 -Date of Last Picture (Recall this 04/05/17 field) -Photo Taken Yes -Epithelialization Small 1-33% -Tunneling No -Undermining/Tunneling No -Circular Undermining No -Classification - Thickness Full Thickness without Exposed Support Structure -Exudate Amt Small (1-33%) -Exudate Type Serosanguineous -Wound Margin Distinct, Outline Attached -Granulation Amt Small (1-33%) -Granulation Quality [place] -Slough/Fibrin Yes -Necrosis Amt Medium (34-66%) -Necrotic Tissue Type Adherent Slough -Structure Exposed Fascia Fat Layer Exposed -Texture (Marti-wound Skin Appearance) Friable Localized Edema -Moisture (Marti-wound Skin Appearance No Abnormality ) -Color (Marti-wound Skin Appearance) Ecchymosis Erythema -Temperature (Marti-wound Skin No Abnormality Appearance) (Pt Warm) -Tenderness on Palpation (Marti-wound Yes Skin Appearance) -Ulcer Cleansing Rinsed/ Irrigated with Saline -Foul Odor after Cleansing No -Anesthetic Used 5% Lidocaine Gel [Edema Assessment] -Lower Limb Edema Present Yes -Right Calf (cm) 39.5 -Right Ankle (cm) 28.5 -Left Calf (cm) 40.0 -Left Ankle (cm) 26.5 WC - Nurse 2 - General Ulcer CM Notes Start: 04/05/17 10:32 Freq: Status: Active Protocol: Activity Type Activity Date Activity User E-Sign Co-Sign Detail Recorded Client Recorded Date Recorded By Document 04/05/17 10:33 MW [id number] 04/05/17 10:44 MW 04/05/17 10:33 Wound Center Nurse 2 [Procedure/Treatment] #3 LEFT MEDIAL LE (TRAUMA) -Time 10:35 -Correct Patient Yes -Correct Side, Site, Position Yes -Correct Procedure Yes -Procedure Performed Yes -Type of Procedure Debridement -Clinical Debridement Subcutaneous -Post Debridement Size (cm) - Length 2.4 -Post Debridement Size (cm) - Width 1.4 -Post Debridement Size (cm) - Depth 0.2 -Total Square Cm 3.36 -Wound/Ulcer Outcome Not Healed -Ulcer Cleansing Rinsed/ Irrigated with Saline -Foul Odor after Cleansing No -Bioengineered Tissue No -Bleeding Controlled with Pressure -Treatment Response Procedure Tolerated Well [See Physician Procedure note for Specifics] Pain Scale: 0-10 Numeric [Pain] -Is Patient Pain Free? Yes Musculoskeletal: Tenderness - Tenderness appreciated to palpation of the ulcer. Neurological: Sensory exam intact to light touch and pain Psych/Mental Status: Normal Affect, Appropriate Debridement Note Post-Debridement Measurements/Treatment WC - Nurse 2 - General Ulcer CM Notes Start: 04/05/17 10:32 Freq: Status: Active Protocol: Activity Type Activity Date Activity User E-Sign Co-Sign Detail Recorded Client Recorded Date Recorded By Document 04/05/17 10:33 MW [id number] 04/05/17 10:44 MW 04/05/17 10:33 Wound Center Nurse 2 #3 LEFT MEDIAL LE (TRAUMA) -Time 10:35 -Correct Patient Yes -Correct Side, Site, Position Yes -Correct Procedure Yes -Procedure Performed Yes -Type of Procedure Debridement -Clinical Debridement Subcutaneous -Post Debridement Size (cm) - Length 2.4 -Post Debridement Size (cm) - Width 1.4 -Post Debridement Size (cm) - Depth 0.2 -Total Square Cm 3.36 -Wound/Ulcer Outcome Not Healed -Ulcer Cleansing Rinsed/ Irrigated with Saline -Foul Odor after Cleansing No -Bioengineered Tissue No -Bleeding Controlled with Pressure -Treatment Response Procedure Tolerated Well Pain Scale: 0-10 Numeric Is Patient Pain Free? Yes Wound debrided: Left anterior lower leg Laterality: Left Wound Grade/Stage: 2 Type of Debridement: Excisional debridement Anesthesia Used: 4% Lidocaine Solution Depth: in the subcutaneous layer Percentage of wound debrided: 100 Instrument Used: 3mm curette Tissue Removed: Adherent slough, fibrin, hyperkeratotic rim Severity: Fat Layer Exposed Amount of bleeding with debridement: Mild Bleeding Controlled with: Pressure Patient tolerated procedure well Assessment/Plan Active Problems Ulcer of left lower extremity with fat layer exposed (Acute) Malnutrition (Acute) Controlled diabetes mellitus (Acute) Edema, lower extremity (Acute) Assessment: Ulcer to left lower leg with fat layer exposed. DM II. Lower extremity edema Plan: Initial patient examination evaluation was performed. The ulcer to the left anterior lower leg was debrided as noted in the clinical panel. Post debridement, the ulcer site was carefully cleansed and then dressed with Aquacel Ag, dry sterile dressing, and tubigrip. This is to be changed on a daily basis in this manner. She is to try and keep all pressure off of the area otherwise. No antibiotics were prescribed today due to there being no apparent signs of local infection. Baseline lab work was also ordered today including a CBC with differential, CMP, prealbumin, ESR, hemoglobin A1c. LEAS and bilateral venous Doppler exams were ordered. These results will be reviewed at the follow -up visit. Dressing supplies were ordered for the patient. I recommended a high-protein diet for this patient to supplement wound healing. Patient was educated on all signs and symptoms of local and systemic infection, and was instructed to go to the ER immediately should she notice any. All other questions were answered to the patient's satisfaction. The patient will follow- up in clinic in 1 week to check on progress, or sooner if needed.
[2017-04-05 14:30] LABS: Absolute Lymphocyte Count 1.38 X10^3/ul (0.83-4.51); Absolute Neutrophil Count 10.1 X10^3/uL (2.0-7.7); Basophil# 0.02 X10^3/uL; Basophil% 0.2 % (0-1); Eosinophils% 0.8 % (0-5); Hematocrit 42.9 % (37-47); Hemoglobin 13.5 g/dl (12.0-15.0); Lymphocyte # 1.38 X10^3/ul (4.0); Lymphocyte % 10.8 % (19-41); Mean Corp Hgb Conc 31.5 g/gl (32-36); Mean Corpuscular Hgb 29.2 pg (27.0-32.0); Mean Corpuscular Volume 92.7 fL (81-99); Mean Platelet Vol. 10.7 fl (6.2-12.0); Monocyte# 1.08 X10^3/uL; Monocyte% 8.4 % (0-10); Neutrophil # 10.14 X10^3/uL (2.7-7.7); Neutrophil % 79.2 % (47-70); POSITIVE COUNT NO; POSITIVE DIFFERENTIAL NO; POSITIVE MORPHOLOGY NO; Platelet Count 251 K/mm3 (150-450); RBC Distribution Width CV 17.1 % (11.6-14.6); RBC Distribution Width SD 57.9 fl (35.1-43.9); Red Blood Count 4.63 M/mm3 (4.2-5.4); White Blood Count 12.8 K/mm3 (4.4-11.0)
[2017-04-05 14:37] LABS: Erythrocyte Sedimentation Rate 18 mm/hr (0-30)
[2017-04-05 14:58] LABS: Hemoglobin A1c 6.2 % (4.2-6.3)
[2017-04-05 15:06] LABS: AST(SGOT) 14 U/L (15-37); Alanine Aminotransfer ALT/SGPT 32 U/L (13-56); Albumin, Serum 3.2 g/dL (3.2-5.0); Alkaline Phosphatase 53 U/L (45-117); Anion Gap 9 (5-15); BUN 47 mg/dL (7-18); BUN/Creat Ratio 31.3 RATIO (10-20); Calcium,Total 9.5 mg/dL (8.5-10.1); Chloride 103 mmol/L (98-107); EST Glomerular Filtration Rate 36 mL/min (>60); Est Glom Filt Rate - Afr Amer 44 mL/min (>60); Globulin 3.2 g/dL (2.2-4.2); Glucose 68 mg/dL (74-106); Potassium 5.5 mmol/L (3.5-5.1); Prealbumin 34.5 mg/dL (20.0-40.0); Protein, Total 6.4 g/dL (6.4-8.2); Sodium Level 138 mmol/L (136-145)
[2017-04-12 10:25] VITALS: BP 148/87; PULSE 79; RESP 18; TEMP 36.2
--- NOTE | 2017-04-12 15:09 | PCM.WC.PN ---
(1) Ulcer of left lower extremity with fat layer exposed Status: Acute Current Visit: Yes Code(s): L97.922 - Non-pressure chronic ulcer of unspecified part of left lower leg with fat layer exposed (2) PVD (peripheral vascular disease) Status: Acute Current Visit: Yes Code(s): I73.9 - Peripheral vascular disease, unspecified (3) Malnutrition Status: Acute Current Visit: Yes Code(s): E46 - Unspecified protein-calorie malnutrition (4) Controlled diabetes mellitus Status: Chronic Current Visit: Yes Code(s): E11.9 - Type 2 diabetes mellitus without complications (5) Edema, lower extremity Status: Acute Current Visit: Yes Code(s): R60.0 - Localized edema Type of Wound Date of Service: 04/12/17 Chief Complaint: Left anterior lower leg ulceration that will not heal. History of Wound: This 72 year old female has significant history of diabetes and multiple sclerosis, bilateral traumatic leg wounds, and other comorbidities. She presents to office today after being referred by Dr. Franco. Per his note, the patient had finished up a prescription for keflex and is on rocephin. Patient states that she recently got a new bed. She says since she is short she had to get a stool in order to get onto her bed. She fell on the stool and got an ulcer on the left anterior leg. She says this happed close to two weeks ago and has not seen much of an improvment since. She has been dressing the ulcer site with bacitracin. She denies any purulence, malodor, redness around the ulcer. She also denies any feelings of nausea, vomiting, fever, or chills currently. Progress of Wound: Ulcer site remains mostly unchanged since last week. Patient admits to not really wearing any compression to her lower extremity or taking her lasix because she says she has to pee too much. No purulence, malodor, or surrounding celllutlis noted. - Physical Exam Vital Signs Temp Pulse Resp BP 97.1 F L 79 18 148/87 H 04/12/17 10:25 04/12/17 10:25 04/12/17 10:25 04/12/17 10:25 General: Alert, Oriented x3, Cooperative, No apparent distress Extremities: Capillary Refill Less than 3 Seconds, No Calf Tenderness - negative enma and casanova sign bilateral, Diminished Peripheral Pulses - DP and PT pulses non palpable due to pitting edema bilateral, Edema - bilateral lower extremity pitting edema Skin: Ulcer/ Wound - Ulcer appreciated to the anterior left lower leg. Ulcer measurements are noted below. Ulcer base is a mixture of granular tissue, adherent slough, fibrin, and hyperkeratotic rim. Slight serous drainage appreciated again today, however no purulence was noted. No increase in warmth, no probing, no tracking, no undermining, and no surrounding cellulitis appreciated at this time. Edema to bilateral lower extremities is worsened this week. No other signs of local infection appreciated. Wound Measurements and Assessment WC - Nurse 1 - General Ulcer Measurement Start: 04/05/17 10:32 Freq: Status: Active Protocol: Activity Type Activity Date Activity User E-Sign Co-Sign Detail Recorded Client Recorded Date Recorded By Document 04/12/17 10:25 [id number] 04/12/17 10:29 TM 04/12/17 10:25 Wound Center Nurse 1 [Ulcer Assessment] #3 LEFT MEDIAL LE (TRAUMA) -Combined with other wound No -Current Size (cm) - Length 2.2 -Current Size (cm) - Width 1.3 -Current Size (cm) - Depth 0.1 -Total Square Cm 2.86 -Photo Taken No -Epithelialization Small 1-33% -Tunneling No -Undermining/Tunneling No -Circular Undermining No -Classification - Thickness Full Thickness without Exposed Support Structure -Exudate Amt Small (1-33%) -Exudate Type Serosanguineous -Wound Margin Distinct, Outline Attached -Granulation Amt Medium (34-66%) -Granulation Quality Red -Slough/Fibrin Yes -Necrosis Amt Medium (34-66%) -Necrotic Tissue Type Adherent Slough -Structure Exposed Fascia Fat Layer Exposed -Texture (Char-wound Skin Appearance) Localized Edema Scarring -Moisture (Char-wound Skin Appearance No Abnormality ) -Color (Char-wound Skin Appearance) Erythema -Temperature (Char-wound Skin No Abnormality Appearance) (Pt Warm) -Tenderness on Palpation (Char-wound No Skin Appearance) -Ulcer Cleansing Rinsed/ Irrigated with Saline -Foul Odor after Cleansing No -Anesthetic Used 4% Lidocaine Solution [Edema Assessment] -Lower Limb Edema Present Yes -Right Calf (cm) 42.8 -Right Ankle (cm) 27.4 -Left Calf (cm) 43.0 -Left Ankle (cm) 26.4 WC - Nurse 2 - General Ulcer CM Notes Start: 04/05/17 10:32 Freq: Status: Active Protocol: Activity Type Activity Date Activity User E-Sign Co-Sign Detail Recorded Client Recorded Date Recorded By Document 04/12/17 11:40 MW [id number] 04/12/17 11:42 MW 04/12/17 11:40 Wound Center Nurse 2 [Procedure/Treatment] #3 LEFT MEDIAL LE (TRAUMA) -Time 11:40 -Correct Patient Yes -Correct Side, Site, Position Yes -Correct Procedure Yes -Procedure Performed Yes -Type of Procedure Debridement -Clinical Debridement Subcutaneous -Post Debridement Size (cm) - Length 2.3 -Post Debridement Size (cm) - Width 1.4 -Post Debridement Size (cm) - Depth 0.2 -Total Square Cm 3.22 -Wound/Ulcer Outcome Not Healed -Ulcer Cleansing Rinsed/ Irrigated with Saline -Foul Odor after Cleansing No -Bioengineered Tissue No -Bleeding Controlled with Pressure -Treatment Response Procedure Tolerated Well [See Physician Procedure note for Specifics] Pain Scale: 0-10 Numeric [Pain] -Is Patient Pain Free? Yes Musculoskeletal: Tenderness - pain noted to aforementioned ulcer site Neurological: Sensory exam intact to light touch and pain Psych/Mental Status: Normal Affect, Appropriate Debridement Note Post-Debridement Measurements/Treatment - Nurse 2 - General Ulcer CM Notes Start: 04/05/17 10:32 Freq: Status: Active Protocol: Activity Type Activity Date Activity User E-Sign Co-Sign Detail Recorded Client Recorded Date Recorded By Document 04/05/17 10:33 MW [id number] 04/05/17 10:44 MW Document 04/12/17 11:40 MW [id number] 04/12/17 11:42 MW 04/05/17 04/12/17 10:33 11:40 Wound Center Nurse 2 #3 LEFT MEDIAL LE (TRAUMA) -Time 10:35 11:40 -Correct Patient Yes Yes -Correct Side, Site, Position Yes Yes -Correct Procedure Yes Yes -Procedure Performed Yes Yes -Type of Procedure Debridement Debridement -Clinical Debridement Subcutaneous Subcutaneous -Post Debridement Size (cm) - Length 2.4 2.3 -Post Debridement Size (cm) - Width 1.4 1.4 -Post Debridement Size (cm) - Depth 0.2 0.2 -Total Square Cm 3.36 3.22 -Wound/Ulcer Outcome Not Healed Not Healed -Ulcer Cleansing Rinsed/ Rinsed/ Irrigated with Irrigated with Saline Saline -Foul Odor after Cleansing No No -Bioengineered Tissue No No -Bleeding Controlled with Pressure Pressure -Treatment Response Procedure Procedure Tolerated Well Tolerated Well Pain Scale: 0-10 Numeric Is Patient Pain Free? Yes Yes Wound debrided: left anterior lower leg Laterality: Left Wound Grade/Stage: 2 Type of Debridement: Excisional debridement Anesthesia Used: 4% Lidocaine Solution Depth: in the subcutaneous layer Percentage of wound debrided: 100 Instrument Used: 3mm curette Tissue Removed: Adherent slough, fibrin, hyperkeratotic rim Severity: Fat Layer Exposed Amount of bleeding with debridement: Mild Bleeding Controlled with: Pressure Patient tolerated procedure well Assessment/Plan Active Problems (Last Updated 04/11/17 @ 12:11 by Lisa Hutton) Ulcer of left lower extremity with fat layer exposed (Acute) PVD (peripheral vascular disease) (Acute) Malnutrition (Acute) Controlled diabetes mellitus (Chronic) Edema, lower extremity (Acute) Assessment: Ulcer to left lower leg with fat layer exposed. DM II. Lower extremity edema Plan: Mandy was again examined and evaluated. The ulcer to the left anterior lower leg was debrided as noted in the clinical panel. Post debridement, the ulcer site was carefully cleansed and then dressed with francisco, dry sterile dressing, and tubigrip. This is to be changed every other day in this manner. Due to the patient's increased lower extremity edema bilaterally, she was again instructed to wear her tubigrip for compression. It was stressed in great detail the importance of the patient complying with keeping compression to the lower extremitites. She admitted that she has not been compliant this past week in that regard. She was instructed to wear the tubigrip, take her lasix as prescribed, and to keep her lower extremities elevated while seated. She is to try and keep all pressure off of the area otherwise. Labwork was reviewed from last visit. WBC was 12.8 and ESR was not elevated at 18. LEAS and bilateral venous Doppler exams were ordered and the patient is scheduled for next week. We will review these if the results are in by next visit. I recommended a high-protein diet for this patient to supplement wound healing. Patient was educated on all signs and symptoms of local and systemic infection, and was instructed to go to the ER immediately should she notice any. All other questions were answered to the patient's satisfaction. The patient will follow-up in clinic in 1 week to check on progress, or sooner if needed.
--- NOTE | 2017-04-12 15:22 | PN.PCM_ITS ---
(1) Ulcer of left lower extremity with fat layer exposed Status: Acute Current Visit: Yes Code(s): L97.922 - Non-pressure chronic ulcer of unspecified part of left lower leg with fat layer exposed (2) PVD (peripheral vascular disease) Status: Acute Current Visit: Yes Code(s): I73.9 - Peripheral vascular disease, unspecified (3) Malnutrition Status: Acute Current Visit: Yes Code(s): E46 - Unspecified protein-calorie malnutrition (4) Controlled diabetes mellitus Status: Chronic Current Visit: Yes Code(s): E11.9 - Type 2 diabetes mellitus without complications (5) Edema, lower extremity Status: Acute Current Visit: Yes Code(s): R60.0 - Localized edema Type of Wound Date of Service: 04/12/17 Chief Complaint: Left anterior lower leg ulceration that will not heal. History of Wound: This 72 year old female has significant history of diabetes and multiple sclerosis, bilateral traumatic leg wounds, and other comorbidities. She presents to office today after being referred by Dr. Franco. Per his note, the patient had finished up a prescription for keflex and is on rocephin. Patient states that she recently got a new bed. She says since she is short she had to get a stool in order to get onto her bed. She fell on the stool and got an ulcer on the left anterior leg. She says this happed close to two weeks ago and has not seen much of an improvment since. She has been dressing the ulcer site with bacitracin. She denies any purulence, malodor, redness around the ulcer. She also denies any feelings of nausea, vomiting, fever, or chills currently. Progress of Wound: Ulcer site remains mostly unchanged since last week. Patient admits to not really wearing any compression to her lower extremity or taking her lasix because she says she has to pee too much. No purulence, malodor, or surrounding celllutlis noted. - Physical Exam Vital Signs Temp Pulse Resp BP 97.1 F L 79 18 148/87 H 04/12/17 10:25 04/12/17 10:25 04/12/17 10:25 04/12/17 10:25 General: Alert, Oriented x3, Cooperative, No apparent distress Extremities: Capillary Refill Less than 3 Seconds, No Calf Tenderness - negative enma and casanova sign bilateral, Diminished Peripheral Pulses - DP and PT pulses non palpable due to pitting edema bilateral, Edema - bilateral lower extremity pitting edema Skin: Ulcer/ Wound - Ulcer appreciated to the anterior left lower leg. Ulcer measurements are noted below. Ulcer base is a mixture of granular tissue, adherent slough, fibrin, and hyperkeratotic rim. Slight serous drainage appreciated again today, however no purulence was noted. No increase in warmth , no probing, no tracking, no undermining, and no surrounding cellulitis appreciated at this time. Edema to bilateral lower extremities is worsened this week. No other signs of local infection appreciated. Wound Measurements and Assessment WC - Nurse 1 - General Ulcer Measurement Start: 04/05/17 10:32 Freq: Status: Active Protocol: Activity Type Activity Date Activity User E-Sign Co-Sign Detail Recorded Client Recorded Date Recorded By Document 04/12/17 10:25 [id number] 04/12/17 10:29 TM 04/12/17 10:25 Wound Center Nurse 1 [Ulcer Assessment] #3 LEFT MEDIAL LE (TRAUMA) -Combined with other wound No -Current Size (cm) - Length 2.2 -Current Size (cm) - Width 1.3 -Current Size (cm) - Depth 0.1 -Total Square Cm 2.86 -Photo Taken No -Epithelialization Small 1-33% -Tunneling No -Undermining/Tunneling No -Circular Undermining No -Classification - Thickness Full Thickness without Exposed Support Structure -Exudate Amt Small (1-33%) -Exudate Type Serosanguineous -Wound Margin Distinct, Outline Attached -Granulation Amt Medium (34-66%) -Granulation Quality Red -Slough/Fibrin Yes -Necrosis Amt Medium (34-66%) -Necrotic Tissue Type Adherent Slough -Structure Exposed Fascia Fat Layer Exposed -Texture (Char-wound Skin Appearance) Localized Edema Scarring -Moisture (Char-wound Skin Appearance No Abnormality ) -Color (Char-wound Skin Appearance) Erythema -Temperature (Char-wound Skin No Abnormality Appearance) (Pt Warm) -Tenderness on Palpation (Char-wound No Skin Appearance) -Ulcer Cleansing Rinsed/ Irrigated with Saline -Foul Odor after Cleansing No -Anesthetic Used 4% Lidocaine Solution [Edema Assessment] -Lower Limb Edema Present Yes -Right Calf (cm) 42.8 -Right Ankle (cm) 27.4 -Left Calf (cm) 43.0 -Left Ankle (cm) 26.4 WC - Nurse 2 - General Ulcer CM Notes Start: 04/05/17 10:32 Freq: Status: Active Protocol: Activity Type Activity Date Activity User E-Sign Co-Sign Detail Recorded Client Recorded Date Recorded By Document 04/12/17 11:40 MW [id number] 04/12/17 11:42 MW 04/12/17 11:40 Wound Center Nurse 2 [Procedure/Treatment] #3 LEFT MEDIAL LE (TRAUMA) -Time 11:40 -Correct Patient Yes -Correct Side, Site, Position Yes -Correct Procedure Yes -Procedure Performed Yes -Type of Procedure Debridement -Clinical Debridement Subcutaneous -Post Debridement Size (cm) - Length 2.3 -Post Debridement Size (cm) - Width 1.4 -Post Debridement Size (cm) - Depth 0.2 -Total Square Cm 3.22 -Wound/Ulcer Outcome Not Healed -Ulcer Cleansing Rinsed/ Irrigated with Saline -Foul Odor after Cleansing No -Bioengineered Tissue No -Bleeding Controlled with Pressure -Treatment Response Procedure Tolerated Well [See Physician Procedure note for Specifics] Pain Scale: 0-10 Numeric [Pain] -Is Patient Pain Free? Yes Musculoskeletal: Tenderness - pain noted to aforementioned ulcer site Neurological: Sensory exam intact to light touch and pain Psych/Mental Status: Normal Affect, Appropriate Debridement Note Post-Debridement Measurements/Treatment - Nurse 2 - General Ulcer CM Notes Start: 04/05/17 10:32 Freq: Status: Active Protocol: Activity Type Activity Date Activity User E-Sign Co-Sign Detail Recorded Client Recorded Date Recorded By Document 04/05/17 10:33 MW [id number] 04/05/17 10:44 MW Document 04/12/17 11:40 MW [id number] 04/12/17 11:42 MW 04/05/17 04/12/17 10:33 11:40 Wound Center Nurse 2 #3 LEFT MEDIAL LE (TRAUMA) -Time 10:35 11:40 -Correct Patient Yes Yes -Correct Side, Site, Position Yes Yes -Correct Procedure Yes Yes -Procedure Performed Yes Yes -Type of Procedure Debridement Debridement -Clinical Debridement Subcutaneous Subcutaneous -Post Debridement Size (cm) - Length 2.4 2.3 -Post Debridement Size (cm) - Width 1.4 1.4 -Post Debridement Size (cm) - Depth 0.2 0.2 -Total Square Cm 3.36 3.22 -Wound/Ulcer Outcome Not Healed Not Healed -Ulcer Cleansing Rinsed/ Rinsed/ Irrigated with Irrigated with Saline Saline -Foul Odor after Cleansing No No -Bioengineered Tissue No No -Bleeding Controlled with Pressure Pressure -Treatment Response Procedure Procedure Tolerated Well Tolerated Well Pain Scale: 0-10 Numeric Is Patient Pain Free? Yes Yes Wound debrided: left anterior lower leg Laterality: Left Wound Grade/Stage: 2 Type of Debridement: Excisional debridement Anesthesia Used: 4% Lidocaine Solution Depth: in the subcutaneous layer Percentage of wound debrided: 100 Instrument Used: 3mm curette Tissue Removed: Adherent slough, fibrin, hyperkeratotic rim Severity: Fat Layer Exposed Amount of bleeding with debridement: Mild Bleeding Controlled with: Pressure Patient tolerated procedure well Assessment/Plan Active Problems (Last Updated 04/11/17 @ 12:11 by Lisa Hutton) Ulcer of left lower extremity with fat layer exposed (Acute) PVD (peripheral vascular disease) (Acute) Malnutrition (Acute) Controlled diabetes mellitus (Chronic) Edema, lower extremity (Acute) Assessment: Ulcer to left lower leg with fat layer exposed. DM II. Lower extremity edema Plan: Mandy was again examined and evaluated. The ulcer to the left anterior lower leg was debrided as noted in the clinical panel. Post debridement, the ulcer site was carefully cleansed and then dressed with francisco, dry sterile dressing, and tubigrip. This is to be changed every other day in this manner. Due to the patient's increased lower extremity edema bilaterally, she was again instructed to wear her tubigrip for compression. It was stressed in great detail the importance of the patient complying with keeping compression to the lower extremitites. She admitted that she has not been compliant this past week in that regard. She was instructed to wear the tubigrip, take her lasix as prescribed, and to keep her lower extremities elevated while seated. She is to try and keep all pressure off of the area otherwise. Labwork was reviewed from last visit. WBC was 12.8 and ESR was not elevated at 18. LEAS and bilateral venous Doppler exams were ordered and the patient is scheduled for next week. We will review these if the results are in by next visit. I recommended a high- protein diet for this patient to supplement wound healing. Patient was educated on all signs and symptoms of local and systemic infection, and was instructed to go to the ER immediately should she notice any. All other questions were answered to the patient's satisfaction. The patient will follow- up in clinic in 1 week to check on progress, or sooner if needed.
--- NOTE | 2017-04-20 10:07 | VDLE_ITS ---
Reason For Study: Non-healing wound RIGHT LEFT CFV is compressible, spontaneous, phasic, CFV is compressible, spontaneous, phasic, competent and demonstrates normal competent, and demonstrates normal augmentation. augmentation. FV is compressible, spontaneous, phasic, FV is compressible, spontaneous, phasic, competent and demonstrates normal competent and demonstrates normal augmentation. augmentation. POP V is compressible, spontaneous, phasic, POP V is compressible, spontaneous, phasic, competent and demonstrates normal competent and demonstrates normal augmentation. augmentation. T/P Trunk is compressible. T/P Trunk is compressible. PTV is compressible. PTV is compressible. RT PerV is compressible. LT PerV is compressible. SFJ is competent GSV absent GSV is competent SSV too small in caliber to assess. SSV is competent. Procedure Exam performed in department. A preliminary report was called and/or faxed to [facility]. Interpretation Summary Deep veins of the lower extremities are bilaterally patent and compressible segmentally. There is no evidence of deep vein thrombosis on either side. Valvular competence appears intact within the proximal deep venous systems bilaterally. The right sapheno-femoral junction is competent . The right greater saphenous vein appears segmentally competent. The left greater saphenous vein is absent. The right small saphenous vein is competent. The left small saphenous vein is too small to assess. Ordering Physician: Bayron Dutton Referring Physician: Octaviano Franco Chi Performed By: Uyen Mckenna RVT
--- NOTE | 2017-04-23 07:18 | LEAS ---
Arterial Study - Arterial Study Arterial Study: This is a 72-year-old female with a history of hypertension, diabetes mellitus, and coronary artery disease. The patient presents with a chronic nonhealing wound to the left lower extremity. Suspecting the presence of atherosclerotic peripheral arterial occlusive disease, the patient was brought to the noninvasive vascular laboratory at this time for the purpose of bilateral noninvasive lower extremity arterial assessment. Doppler signal assessment was used to evaluate the pulses at ankle level bilaterally. The posterior tibial and dorsalis pedis pulses were triphasic bilaterally. Segmental limb pressures were obtained bilaterally. The right ankle pressure, as determined by posterior tibial pulse, was measured at 208 mmHg. The right ankle pressure, as determined by dorsalis pedis pulse, was measured at 173 mmHg. The right digital pressure was measured at 95 mmHg. The left ankle pressure, as determined by posterior tibial pulse, was measured at 201 mmHg. The left ankle pressure, as determined by dorsalis pedis pulse, was measured at 192 mmHg. The left digital pressure was measured at 99 mmHg. Pulse-volume recordings were obtained bilaterally and segmentally. Waveform amplitudes appeared to be satisfactory at all levels bilaterally, but for the left digital level, which was mildly diminished. Resting ankle-brachial indices were calculated bilaterally. The resting right ankle-brachial index was calculated to be 1.27. The resting left ankle-brachial index was calculated to be 1.23. Digital-brachial indices were calculated bilaterally. The right digital-brachial index was calculated to be 0.58. The left digital-brachial index was calculated to be 0.60. Impression: Based upon the findings of this resting noninvasive lower extremity arterial study, arterial perfusion appears to be normal to ankle level bilaterally. Triphasic waveforms were noted at ankle level bilaterally. Resting ankle-brachial indices were bilaterally normal. Digital-brachial indices are mildly diminished bilaterally, suggestive of mild, distal, small-vessel arterial occlusive disease bilaterally. Clinical correlation is advised.
--- NOTE | 2017-04-23 07:22 | LEAS_ITS ---
Arterial Study - Arterial Study Arterial Study: This is a 72-year-old female with a history of hypertension, diabetes mellitus, and coronary artery disease. The patient presents with a chronic nonhealing wound to the left lower extremity. Suspecting the presence of atherosclerotic peripheral arterial occlusive disease, the patient was brought to the noninvasive vascular laboratory at this time for the purpose of bilateral noninvasive lower extremity arterial assessment. Doppler signal assessment was used to evaluate the pulses at ankle level bilaterally. The posterior tibial and dorsalis pedis pulses were triphasic bilaterally. Segmental limb pressures were obtained bilaterally. The right ankle pressure, as determined by posterior tibial pulse, was measured at 208 mmHg. The right ankle pressure, as determined by dorsalis pedis pulse, was measured at 173 mmHg. The right digital pressure was measured at 95 mmHg. The left ankle pressure, as determined by posterior tibial pulse, was measured at 201 mmHg. The left ankle pressure, as determined by dorsalis pedis pulse, was measured at 192 mmHg. The left digital pressure was measured at 99 mmHg. Pulse-volume recordings were obtained bilaterally and segmentally. Waveform amplitudes appeared to be satisfactory at all levels bilaterally, but for the left digital level, which was mildly diminished. Resting ankle-brachial indices were calculated bilaterally. The resting right ankle-brachial index was calculated to be 1.27. The resting left ankle- brachial index was calculated to be 1.23. Digital-brachial indices were calculated bilaterally. The right digital- brachial index was calculated to be 0.58. The left digital-brachial index was calculated to be 0.60. Impression: Based upon the findings of this resting noninvasive lower extremity arterial study, arterial perfusion appears to be normal to ankle level bilaterally. Triphasic waveforms were noted at ankle level bilaterally. Resting ankle-brachial indices were bilaterally normal. Digital-brachial indices are mildly diminished bilaterally, suggestive of mild, distal, small- vessel arterial occlusive disease bilaterally. Clinical correlation is advised.
[2017-05-03 11:22] VITALS: BP 138/70; PULSE 78; RESP 18; TEMP 37
--- NOTE | 2017-05-03 14:54 | PCM.WC.PN ---
(1) Ulcer of left lower extremity with fat layer exposed Status: Acute Current Visit: Yes Code(s): L97.922 - Non-pressure chronic ulcer of unspecified part of left lower leg with fat layer exposed (2) PVD (peripheral vascular disease) Status: Acute Current Visit: Yes Code(s): I73.9 - Peripheral vascular disease, unspecified (3) Malnutrition Status: Acute Current Visit: Yes Code(s): E46 - Unspecified protein-calorie malnutrition (4) Controlled diabetes mellitus Status: Chronic Current Visit: Yes Code(s): E11.9 - Type 2 diabetes mellitus without complications (5) Edema, lower extremity Status: Acute Current Visit: Yes Code(s): R60.0 - Localized edema Type of Wound Date of Service: 05/03/17 Chief Complaint: Left anterior lower leg ulceration that will not heal. History of Wound: This 72 year old female has significant history of diabetes and multiple sclerosis, bilateral traumatic leg wounds, and other comorbidities. She presents to office today after being referred by Dr. Franco. Per his note, the patient had finished up a prescription for keflex and is on rocephin. Patient states that she recently got a new bed. She says since she is short she had to get a stool in order to get onto her bed. She fell on the stool and got an ulcer on the left anterior leg. She says this happed close to two weeks ago and has not seen much of an improvment since. She has been dressing the ulcer site with bacitracin. She denies any purulence, malodor, redness around the ulcer. She also denies any feelings of nausea, vomiting, fever, or chills currently. Progress of Wound: Patient has missed two weeks of wound center appointments due to other doctor visits. Patient says that on April 22 she fell off of her toilet and she had a laceration on her left anterior cabrera. According to the patient, she was seen in the ER where they sutured her laceration and had her follow up with her primary care. She has since notice some blister formation to the lateral aspect of her leg. She also continues to have an open ulcer to the left lower medial leg that we have been treating in the past. She says she has not been keeping compression on the lower legs. She also says she was told to stop her lasix. She says there is some tenderness to the areas. She is on IV antibiotics per Dr. Franco according to the patient for both her leg and her previous UTI. She says she is unsure which antibiotics she is currently using. Currently she denies any nausea, vomiting, fever, or chills. - Physical Exam Vital Signs Temp Pulse Resp BP 98.6 F 78 18 138/70 H 05/03/17 11:22 05/03/17 11:22 05/03/17 11:22 05/03/17 11:22 General: Alert, Oriented x3, Cooperative, No apparent distress Extremities: Capillary Refill Less than 3 Seconds, No Calf Tenderness - negative enma and casanova sign, Diminished Peripheral Pulses - DP and PT pulses non palpable due to edema, Edema - bilateral lower extremity pitting edema Skin: Ulcer/ Wound - Ulcer to left medial lower leg still present with measurements noted below. Still adherent slough, fibrin, biofilm appreciated to the base. No probing, tracking, undermining noted. No purulence, malodor, or extending cellulitis appreciated. There is also a sutured laceration noted to anterior proximal leg. Sutures are all intact and skin edges well coapted. There is blister formation to the lateral proximal left leg with measurements noted. Wound Measurements and Assessment WC - Nurse 1 - General Ulcer Measurement Start: 04/05/17 10:32 Freq: Status: Active Protocol: Activity Type Activity Date Activity User E-Sign Co-Sign Detail Recorded Client Recorded Date Recorded By Document 05/03/17 11:22 DL [id number] 05/03/17 11:36 DL 05/03/17 11:22 Wound Center Nurse 1 [Ulcer Assessment] #4 L Lat LE Incision -Current Size (cm) - Length 0.1 -Current Size (cm) - Width 0.1 -Current Size (cm) - Depth 0.1 -Total Square Cm 0.01 -Photo Taken Yes -Exudate Amt None Present (0 %) -Wound Margin Flat & Intact -Granulation Amt None Present (0 %) -Necrosis Amt None Present (0 %) -Structure Exposed N/A -Texture (Char-wound Skin Appearance) Localized Edema -Moisture (Char-wound Skin Appearance Weeping ) -Color (Char-wound Skin Appearance) Ecchymosis Erythema Hemosiderin Staining -Ulcer Cleansing Wound Cleanser -Foul Odor after Cleansing No #3 LEFT MEDIAL LE (TRAUMA) -Current Size (cm) - Length 1.8 -Current Size (cm) - Width 1.3 -Current Size (cm) - Depth 0.1 -Total Square Cm 2.34 -Photo Taken No -Exudate Amt Medium (34-66%) -Exudate Type Serosanguineous -Wound Margin Distinct, Outline Attached -Granulation Amt Small (1-33%) -Granulation Quality Red -Necrosis Amt Small (1-33%) -Structure Exposed N/A -Texture (Char-wound Skin Appearance) Scarring -Color (Char-wound Skin Appearance) Ecchymosis Erythema Rubor -Temperature (Char-wound Skin No Abnormality Appearance) (Pt Warm) -Ulcer Cleansing Wound Cleanser -Anesthetic Used 4% Lidocaine Solution [Edema Assessment] -Left Calf (cm) 45 -Left Ankle (cm) 29.5 WC - Nurse 2 - General Ulcer CM Notes Start: 04/05/17 10:32 Freq: Status: Active Protocol: Activity Type Activity Date Activity User E-Sign Co-Sign Detail Recorded Client Recorded Date Recorded By Document 05/03/17 12:44 MW [id number] 05/03/17 13:07 MW 05/03/17 12:44 Wound Center Nurse 2 [Procedure/Treatment] #5 Left Lateral Leg Blisters -Time 13:00 -Correct Patient Yes -Correct Side, Site, Position Yes -Correct Procedure Yes -Procedure Performed No -Post Debridement Size (cm) - Length 11.1 -Post Debridement Size (cm) - Width 8.3 -Post Debridement Size (cm) - Depth 0.1 -Total Square Cm 92.13 -Wound/Ulcer Outcome Not Healed -Ulcer Cleansing Rinsed/ Irrigated with Saline -Foul Odor after Cleansing No -Bleeding Controlled with NA -Treatment Response Procedure Tolerated Well #4 L Lat LE Incision -Time 12:44 -Correct Patient Yes -Correct Side, Site, Position Yes -Correct Procedure Yes -Procedure Performed No -Post Debridement Size (cm) - Length 0.1 -Post Debridement Size (cm) - Width 0.1 -Post Debridement Size (cm) - Depth 0.1 -Total Square Cm 0.01 -Wound/Ulcer Outcome Not Healed -Ulcer Cleansing Rinsed/ Irrigated with Saline -Foul Odor after Cleansing No -Bioengineered Tissue No -Bleeding Controlled with NA -Treatment Response Procedure Tolerated Well #3 LEFT MEDIAL LE (TRAUMA) -Time 12:44 -Correct Patient Yes -Correct Side, Site, Position Yes -Correct Procedure Yes -Procedure Performed No -Post Debridement Size (cm) - Length 1.8 -Post Debridement Size (cm) - Width 1.3 -Post Debridement Size (cm) - Depth 0.1 -Total Square Cm 2.34 -Wound/Ulcer Outcome Not Healed -Ulcer Cleansing Rinsed/ Irrigated with Saline -Foul Odor after Cleansing No -Bleeding Controlled with NA -Treatment Response Procedure Tolerated Well [See Physician Procedure note for Specifics] Pain Scale: 0-10 Numeric [Pain] -Is Patient Pain Free? Yes Musculoskeletal: Tenderness - tenderness to areas of ulcer and blisters as well as sutured laceration Neurological: Sensory exam intact to light touch and pain Psych/Mental Status: Normal Affect, Appropriate Debridement Note Post-Debridement Measurements/Treatment WC - Nurse 2 - General Ulcer CM Notes Start: 04/05/17 10:32 Freq: Status: Active Protocol: Activity Type Activity Date Activity User E-Sign Co-Sign Detail Recorded Client Recorded Date Recorded By Document 04/05/17 10:33 MW [id number] 04/05/17 10:44 MW Document 04/12/17 11:40 MW [id number] 04/12/17 11:42 MW Document 05/03/17 12:44 MW [id number] 05/03/17 13:07 MW 04/05/17 04/12/17 05/03/17 10:33 11:40 12:44 Wound Center Nurse 2 #5 Left Lateral Leg Blisters -Time 13:00 -Correct Patient Yes -Correct Side, Site, Position Yes -Correct Procedure Yes -Procedure Performed No -Post Debridement Size (cm) - Length 11.1 -Post Debridement Size (cm) - Width 8.3 -Post Debridement Size (cm) - Depth 0.1 -Total Square Cm 92.13 -Wound/Ulcer Outcome Not Healed -Ulcer Cleansing Rinsed/ Irrigated with Saline -Foul Odor after Cleansing No -Bleeding Controlled with NA -Treatment Response Procedure Tolerated Well #4 L Lat LE Incision -Time 12:44 -Correct Patient Yes -Correct Side, Site, Position Yes -Correct Procedure Yes -Procedure Performed No -Post Debridement Size (cm) - Length 0.1 -Post Debridement Size (cm) - Width 0.1 -Post Debridement Size (cm) - Depth 0.1 -Total Square Cm 0.01 -Wound/Ulcer Outcome Not Healed -Ulcer Cleansing Rinsed/ Irrigated with Saline -Foul Odor after Cleansing No -Bioengineered Tissue No -Bleeding Controlled with NA -Treatment Response Procedure Tolerated Well #3 LEFT MEDIAL LE (TRAUMA) -Time 10:35 11:40 12:44 -Correct Patient Yes Yes Yes -Correct Side, Site, Position Yes Yes Yes -Correct Procedure Yes Yes Yes -Procedure Performed Yes Yes No -Type of Procedure Debridement Debridement -Clinical Debridement Subcutaneous Subcutaneous -Post Debridement Size (cm) - Length 2.4 2.3 1.8 -Post Debridement Size (cm) - Width 1.4 1.4 1.3 -Post Debridement Size (cm) - Depth 0.2 0.2 0.1 -Total Square Cm 3.36 3.22 2.34 -Wound/Ulcer Outcome Not Healed Not Healed Not Healed -Ulcer Cleansing Rinsed/ Rinsed/ Rinsed/ Irrigated with Irrigated with Irrigated with Saline Saline Saline -Foul Odor after Cleansing No No No -Bioengineered Tissue No No -Bleeding Controlled with Pressure Pressure NA -Treatment Response Procedure Procedure Procedure Tolerated Well Tolerated Well Tolerated Well Pain Scale: 0-10 Numeric Is Patient Pain Free? Yes Yes Yes No debridement was completed today Assessment/Plan Active Problems (Last Updated 04/11/17 @ 12:11 by Lisa Hutton) Ulcer of left lower extremity with fat layer exposed (Acute) PVD (peripheral vascular disease) (Acute) Malnutrition (Acute) Controlled diabetes mellitus (Chronic) Edema, lower extremity (Acute) Assessment: Ulcer to left lower leg with fat layer exposed. DM II. Lower extremity edema Plan: Mandy was again examined and evaluated today. The ulcer to the left anterior medial lower leg was debrided as noted in the clinical panel. Post debridement, the ulcer site was carefully cleansed and then dressed with aquacel ag, dry sterile dressing. The aforementioned bilsters were punctured with small stab incision and drained with the skin left intact as biological dressing. Adaptic was placed over this area as well as sutures followed by a dry sterile dressing. Her left lower leg dressings are to be changed in this manner daily, followed by tubigrip for compression. Due to the patient's increased lower extremity edema bilaterally, she was again instructed to wear her tubigrip for compression. I again stressed the importance of compression with the patient's healing. She was instructed to wear the tubigrip and to keep her lower extremities elevated while seated. She says she was told by Dr. Franco to stop her lasix. She will check with him again tomorrow on this. She is to try and keep all pressure off of the area otherwise. LEAS and bilateral venous Doppler exams were ordered and the results were reviewed. Patient is to continue with her IV antibiotics though her PICC as prescribed by Dr. Franco. I recommended a high-protein diet for this patient to supplement wound healing. Patient was educated on all signs and symptoms of local and systemic infection, and was instructed to go to the ER immediately should she notice any. All other questions were answered to the patient's satisfaction. The patient will follow-up in clinic in 1 week to check on progress, or sooner if needed.
== END 2017-05-05 23:59 ==
LOC: WC 11:00
PROVIDERS: Family Provider Family Medicine Geriatric Medicine; PCP Family Medicine Geriatric Medicine; Visit Provider Podiatrist
DX: E11.622 Type 2 diabetes mellitus with other skin ulcer (principal); L97.822 Non-pressure chronic ulcer of other part of left lower leg with fat layer exposed; E11.51 Type 2 diabetes mellitus with diabetic peripheral angiopathy without gangrene; R60.0 Localized edema; G35 Multiple sclerosis; I25.10 Atherosclerotic heart disease of native coronary artery without angina pectoris; Z95.1 Presence of aortocoronary bypass graft; E78.5 Hyperlipidemia, unspecified; E66.01 Morbid (severe) obesity due to excess calories; I10 Essential (primary) hypertension; Z71.3 Dietary counseling and surveillance; Z79.899 Other long term (current) drug therapy; Z79.01 Long term (current) use of anticoagulants; Z87.891 Personal history of nicotine dependence
CPT/HCPCS: 11042; 80053; 83036; 84134; 85025; 85652; 93923; 93970; 99213; G0463

== ENCOUNTER → 2017-05-04 10:16 | Outpatient (CLI) | payer MEDICARE, SELFPAY | PROVIDERS: Family Provider Family Medicine Geriatric Medicine; PCP Family Medicine Geriatric Medicine; Visit Provider Family Medicine Geriatric Medicine | DX: L03.90 Cellulitis, unspecified (principal) | CPT/HCPCS: 99211; A4216; G0463 ==

== ENCOUNTER → 2017-05-09 15:01 | Outpatient (CLI) | payer MEDICARE, SELFPAY ==
[2017-05-09 16:46] LABS: Absolute Lymphocyte Count 1.41 X10^3/ul (0.83-4.51); Absolute Neutrophil Count 6.4 X10^3/uL (2.0-7.7); Basophil# 0.02 X10^3/uL; Basophil% 0.2 % (0-1); Eosinophil# 0.05 X10^3/uL; Eosinophils% 0.6 % (0-5); Lymphocyte # 1.41 X10^3/ul (4.0); Lymphocyte % 15.9 % (19-41); Mean Corp Hgb Conc 31.6 g/gl (32-36); Mean Corpuscular Hgb 30.2 pg (27.0-32.0); Mean Corpuscular Volume 95.5 fL (81-99); Mean Platelet Vol. 10.3 fl (6.2-12.0); Monocyte# 0.88 X10^3/uL; Monocyte% 9.9 % (0-10); Neutrophil # 6.44 X10^3/uL (2.7-7.7); Neutrophil % 72.4 % (47-70); Platelet Count 251 K/mm3 (150-450); RBC Distribution Width CV 15.7 % (11.6-14.6); RBC Distribution Width SD 52.8 fl (35.1-43.9); Red Blood Count 3.98 M/mm3 (4.2-5.4); White Blood Count 8.9 K/mm3 (4.4-11.0)
[2017-05-09 16:47] LABS: POSITIVE COUNT NO; POSITIVE DIFFERENTIAL NO; POSITIVE MORPHOLOGY NO
[2017-05-09 17:05] LABS: Anion Gap 9 (5-15); BUN 36 mg/dL (7-18); BUN/Creat Ratio 23.2 RATIO (10-20); Calcium,Total 8.6 mg/dL (8.5-10.1); Chloride 110 mmol/L (98-107); Creatinine, Serum 1.55 mg/dL (0.55-1.02); EST Glomerular Filtration Rate 35 mL/min (>60); Est Glom Filt Rate - Afr Amer 42 mL/min (>60); Glucose 114 mg/dL (74-106); Potassium 4.5 mmol/L (3.5-5.1); Sodium Level 144 mmol/L (136-145)
== END ==
PROVIDERS: Family Provider Family Medicine Geriatric Medicine; PCP Family Medicine Geriatric Medicine; Visit Provider Family Medicine Geriatric Medicine
DX: D64.9 Anemia, unspecified (principal)
CPT/HCPCS: 36415; 80048; 85025

== ENCOUNTER 2017-05-10 21:22 | Observation (INO) | payer MEDICARE, SELFPAY ==
[2017-05-10 21:23] VITALS: BP 161/53; PULSE 77; RESP 19; TEMP 36.6; O2SAT 95; BMI 44.5
--- NOTE | 2017-05-10 21:32 | EKG12_ITS ---
Test Reason : CP Blood Pressure : / mmHG Vent. Rate : 077 BPM Atrial Rate : 077 BPM P-R Int : 172 ms QRS Dur : 078 ms QT Int : 364 ms P-R-T Axes : 057 013 120 degrees QTc Int : 411 ms Normal sinus rhythm ST & T wave abnormality, consider lateral ischemia Abnormal ECG Confirmed by BLACK HATCH, PARDEEP ([id number]), manager editorial SHAHNAZ MARINA ([id number] on 05/14/2017 2:19:19 PM Referred By: YESSI Confirmed By:PARDEEP CLEANING MD
--- NOTE | 2017-05-10 21:40 | RAD_ITS ---
STUDY: X-RAY CHEST REASON FOR EXAM: Female, 72 years old. Chest pain TECHNIQUE: Frontal view of the chest COMPARISON: 04/19/2017 FINDINGS: The lungs are clear. There are no pleural effusions. There is no pneumothorax. The heart is normal in size. The patient is status post sternotomy. The visualized osseous structures are within normal limits. RAD/Chest 1 View (Portable) IMPRESSION: No acute thoracic pathology. Electronically Signed: Andreas Polanco, at 22:49 EDT Tel , Service support ,
[2017-05-10 21:43] LABS: Absolute Lymphocyte Count 2.25 X10^3/ul (0.83-4.51); Basophil# 0.01 X10^3/uL; Basophil% 0.1 % (0-1); Eosinophil# 0.06 X10^3/uL; Eosinophils% 0.5 % (0-5); Hematocrit 39.2 % (37-47); Hemoglobin 12.4 g/dl (12.0-15.0); Lymphocyte # 2.25 X10^3/ul (4.0); Lymphocyte % 19.5 % (19-41); Mean Corp Hgb Conc 31.6 g/gl (32-36); Mean Corpuscular Hgb 29.7 pg (27.0-32.0); Mean Platelet Vol. 9.4 fl (6.2-12.0); Monocyte% 9.5 % (0-10); Neutrophil # 8.03 X10^3/uL (2.7-7.7); Neutrophil % 69.7 % (47-70); Platelet Count 243 K/mm3 (150-450); RBC Distribution Width CV 15.8 % (11.6-14.6); Red Blood Count 4.17 M/mm3 (4.2-5.4); White Blood Count 11.5 K/mm3 (4.4-11.0)
[2017-05-10 21:46] LABS: POSITIVE COUNT NO; POSITIVE DIFFERENTIAL NO; POSITIVE MORPHOLOGY NO
--- NOTE | 2017-05-10 22:03 | ED.VISSUMM ---
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, recent injury to left leg causing large laceration, seen at wound care today for that, she recently completed about 7-10 days of IV antibiotics through family physician's office, when seen by wound care today she was told the wound looks better and it is healing but it is still draining, she began having pressure in her chest into her jaw it did not improve and her family brought her to the emergency department Her cardiac status has been stable since her CABG and marti-CABG [place], she has no history of PE she indicates she may have had a DVT 10 years ago but nothing recent her bowel and bladder habits have been normal no fever no cough she was feeling fine before the onset of the chest pain, chest pain does feel like her prior angina it is uncommon it is uncommon for her to have pain in her jaw Physical Examination: [] She is in no distress head neck chest unremarkable lungs clear heart tones are normal the abdomen is obese but soft nontender the left lower extremity has a wound care dressing that we broke down, she has a linear incision that is still partially open it was sutured the sutures were taken out a few days ago this area is red there is a black eschar laterally looks like it represents a healing blister but she indicates the wound appears better despite the redness and her physicians who have been managing her report that it is improving, Test Results: [] Emergency Department Course and Treatment: [] EKG shows a sinus rhythm nothing acute pain management screening labs chest x-ray His labs are all generally unremarkable white count of 11.5 creatinine 1.85, chronic second EKG showed nothing acute she has flipped T waves in lead I and aVL that were present prior Feeling much better her chest pain appears to be resolved her vital signs remained stable given that she is on Xarelto her creatinine is 1.85 DVT PE would be less likely I spoke with the hospitalist discussed the case with them in detail will be done to see her shortly for admission and will pursue further inpatient management Treatment Plan: [] Disposition: [] Admits stable pending hospital evaluation Impression: [] Chest pain radiating to jaw, history of angina, CABG /marti operative [place] 2013, chronic left leg wound secondary to fall This note was generated with Dragon dictation software. It may contain incorrect words, spelling, and punctuation that were not noted in review of the chart prior to signing ED Disposition - Plan for ED Patient: Chief Complaint: Chest Pain Referrals: Octaviano Franco Chi, MD [Primary Care Provider] -
[2017-05-10 22:08] VITALS: PULSE 77
[2017-05-10] MEDS: 0.9% Normal Saline 1,000 ML 30 ML IV (22:10)
--- NOTE | 2017-05-10 22:10 | ED.DCSUM_ITS ---
- ER Visit Summary Date of Service: 05/10/17 Chief Complaint: [] Chest pain this evening folding laundry History of Present Illness: The patient is a 72 F [] history of CABG [place] in 2013 , recent injury to left leg causing large laceration, seen at wound care today for that, she recently completed about 7-10 days of IV antibiotics through family physician's office, when seen by wound care today she was told the wound looks better and it is healing but it is still draining, she began having pressure in her chest into her jaw it did not improve and her family brought her to the emergency department Her cardiac status has been stable since her CABG and marti-CABG [place], she has no history of PE she indicates she may have had a DVT 10 years ago but nothing recent her bowel and bladder habits have been normal no fever no cough she was feeling fine before the onset of the chest pain, chest pain does feel like her prior angina it is uncommon it is uncommon for her to have pain in her jaw Physical Examination: [] She is in no distress head neck chest unremarkable lungs clear heart tones are normal the abdomen is obese but soft nontender the left lower extremity has a wound care dressing that we broke down, she has a linear incision that is still partially open it was sutured the sutures were taken out a few days ago this area is red there is a black eschar laterally looks like it represents a healing blister but she indicates the wound appears better despite the redness and her physicians who have been managing her report that it is improving, Test Results: [] Emergency Department Course and Treatment: [] EKG shows a sinus rhythm nothing acute pain management screening labs chest x-ray His labs are all generally unremarkable white count of 11.5 creatinine 1.85, chronic second EKG showed nothing acute she has flipped T waves in lead I and aVL that were present prior Feeling much better her chest pain appears to be resolved her vital signs remained stable given that she is on Xarelto her creatinine is 1.85 DVT PE would be less likely I spoke with the hospitalist discussed the case with them in detail will be done to see her shortly for admission and will pursue further inpatient management Treatment Plan: [] Disposition: [] Admits stable pending hospital evaluation Impression: [] Chest pain radiating to jaw, history of angina, CABG /marti operative [place] 2013, chronic left leg wound secondary to fall This note was generated with Dragon dictation software. It may contain incorrect words, spelling, and punctuation that were not noted in review of the chart prior to signing ED Disposition - Plan for ED Patient: Chief Complaint: Chest Pain Referrals: Octaviano Franco Chi, MD [Primary Care Provider] -
[2017-05-10] MEDS: Ondansetron 4 MG/2 ML Vial IV (22:11)
[2017-05-10] MEDS: morphine 8 MG/ML Syringe IV (22:11)
[2017-05-10] MEDS: Aspirin 81 MG TAB.CHEW 324 MG PO (22:11)
[2017-05-10 22:18] VITALS: BP 140/64; PULSE 77; RESP 16; O2SAT 98
[2017-05-10 22:18] LABS: Anion Gap 7 (5-15); BUN 36 mg/dL (7-18); BUN/Creat Ratio 19.5 RATIO (10-20); Calcium,Total 8.9 mg/dL (8.5-10.1); Chloride 107 mmol/L (98-107); Creatinine, Serum 1.85 mg/dL (0.55-1.02); EST Glomerular Filtration Rate 28 mL/min (>60); Est Glom Filt Rate - Afr Amer 34 mL/min (>60); Estimated Creatinine Clearance 19.45 ml/min; Glucose 88 mg/dL (74-106); Potassium 4.5 mmol/L (3.5-5.1); Sodium Level 139 mmol/L (136-145)
--- NOTE | 2017-05-10 22:29 | EKG12_ITS ---
Test Reason : REPEAT Blood Pressure : / mmHG Vent. Rate : 080 BPM Atrial Rate : 080 BPM P-R Int : 168 ms QRS Dur : 076 ms QT Int : 372 ms P-R-T Axes : 042 010 133 degrees QTc Int : 429 ms Normal sinus rhythm ST & T wave abnormality, consider lateral ischemia Abnormal ECG Confirmed by BLACK HATCH, PARDEEP ([id number]), editorial assistant SHAHNAZ MARINA ([id number]) on 05/14/2017 2:19:36 PM Referred By: YESSI Confirmed By:PARDEEP CLEANING MD
[2017-05-10 23:19] VITALS: BP 101/46; PULSE 72; RESP 16; O2SAT 99
--- NOTE | 2017-05-10 23:30 | PCM.HP.STD ---
Problem List (1) PVD (peripheral vascular disease) Status: Chronic (2) Ulcer of left lower extremity with fat layer exposed Status: Acute (3) Controlled diabetes mellitus Status: Chronic (4) S/P CABG (coronary artery bypass graft) Status: Chronic Comment: CABG x2 ARREGUIN tp LAD and SVG to OM2 01/02/11 (5) Paroxysmal atrial fibrillation Status: Chronic (6) Hyperlipidemia Status: Chronic (7) Hypertension Status: Chronic History of Present Illness Date of Admission: 05/10/17 Chief Complaint: Chest pain. The patient is a 72 year old F with past medical history as mentioned above presented to the emergency room because of chest pain. Her symptoms started this evening around 8 PM with central chest pain, retrosternal, came on when she was folding her laundry, pressure-like pain, 8 out of 10 in severity, radiates to her neck on the right side, associated with mild shortness of breath and dizziness and it lasted for few minutes and then eased up but started to come back again shortly. At this time, she mentioned that her pain is almost gone. She denied obvious relieving or aggravating factors. She denies syncope or presyncope. Around 2 weeks ago, she had a fall that was complicated by injury and laceration of the left leg and she has been seen at the wound care center and she has been on antibiotics. She was seen today at the wound care center and she was informed that her wound looks better and she was discharged on antibiotics. In the emergency room, her vital signs are stable. Her routine blood work was remarkable for mild leukocytosis and creatinine of 1.85 which is chronic. Troponin is negative. EKG revealed normal sinus rhythm without evidence of acute ischemic changes. Chest x-ray showed no acute infiltrate, consolidation or effusion. She is being admitted for chest pain for evaluation. Past Medical History Past Medical History (Chronic Problems): Chronic Problems (Last Updated 04/11/17 @ 12:11 by Lisa Hutton) PVD (peripheral vascular disease) (Chronic) Controlled diabetes mellitus (Chronic) Edema, lower extremity (Chronic) Presence of stent in coronary artery (Chronic) PTCA/stent to CX; PTCA/Stent PTCA/stent to prox RCA 05/06; PTCA/LILY in mid to distal RCA 08/29/12 Atherosclerotic heart disease of [place] coronary artery without angina pectoris (Chronic) PTCA/stent to CX; PTCA/Stent PTCA/stent to prox RCA 05/06; PTCA/LILY in mid to distal RCA 08/29/12; CABG x2 ARREGUIN tp LAD and SVG to OM2 01/02/11 S/P CABG (coronary artery bypass graft) (Chronic ~01/02/11) CABG x2 ARREGUIN tp LAD and SVG to OM2 01/02/11 Paroxysmal atrial fibrillation (Chronic) Hyperlipidemia (Chronic) Hypertension (Chronic) Allergies ciprofloxacin [From Cipro] Allergy (Verified 05/10/17 21:28) Hives ciprofloxacin HCl [From Cipro] Allergy (Verified 05/10/17 21:28) Hives Latex, Natural Rubber Allergy (Verified 05/10/17 21:28) Rash Penicillins [PCN] Allergy (Verified 05/10/17 21:28) Hives codeine Adverse Reaction (Unknown, Verified 05/10/17 21:28) Unknown adhesive tape Adverse Reaction (Verified 05/10/17 21:28) Rash Home Medications: Ambulatory Orders Medication Instructions Recorded Amiodarone HCl [Cordarone] 200 mg PO DAILY 05/10/17 Clindamycin HCl 300 mg PO 4X/DAY 05/10/17 Clotrimazole/Betamethasone 1 applic TOPICAL BID 05/10/17 [Lotrisone] Docusate Sodium [Colace] 50 mg PO DAILY 05/10/17 Ergocalciferol [Vitamin D] 50,000 unit PO Q7D 05/10/17 Furosemide [Lasix] 40 mg PO BID 05/10/17 Gabapentin [Neurontin] 800 mg PO TIDCM 05/10/17 Losartan Potassium [Cozaar] 100 mg PO DAILY 05/10/17 Magnesium Oxide 400 mg PO BID 05/10/17 Metformin HCl [Glucophage] 500 mg PO BIDCM 05/10/17 Metoprolol Tartrate [Lopressor 50 mg PO BID 05/10/17 (Beta Tommy)] Mirabegron [Myrbetriq] 50 mg PO DAILY 05/10/17 Pantoprazole Sodium [Protonix] 40 mg PO DAILY 05/10/17 Potassium Chloride [Klor-Con] 20 meq PO BID 05/10/17 Rivaroxaban [Xarelto] 15 mg PO DAILY 05/10/17 Spironolactone 25 mg PO DAILY 05/10/17 levoFLOXacin tablet [Levaquin 250 mg PO DAILY 05/10/17 tablet] Surgical History: angioplasty, appendectomy, cholecystectomy, coronary bypass surgery, hysterectomy, tonsillectomy, - - R ankle surgery with hardware. placement of stents (cardiac or lower extremity. patient is unsure). excision upper lip carcinoma. Incision and drainage and excisional debridement infected traumatic open hematoma wound right anterior leg (90 cm2) and incision and drainage and excisional debridement infected traumatic open hematoma wound left anterior leg (72 cm2) - 12/29/14. 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 Sibling History Items: Diabetes Review of Systems Constitutional: Denies: Anorexia, Chills, Fever, Weakness Eyes: Denies: Blurred vision, Double vision, Drainage, Redness HEENT: Denies: Difficulty Hearing, Ear Pain, Eye Pain, Nasal Congestion, Sore Throat Cardiovascular: Reports: Chest Pain, Chest Pressure, Edema. Denies: Heaviness, Light Headedness, Orthopnea, Palpitations, Syncope Respiratory: Reports: Shortness of Breath. Denies: Cough, Hemoptysis, Pleuritic Pain, Sputum production, Wheezing Gastrointestinal: Denies: Abdominal Pain, Constipation, Diarrhea, Nausea, Vomiting Genitourinary: Denies: Dysuria, Frequency, Hematuria Musculoskeletal: Denies: Arm Pain, Back Pain, Foot Pain Skin: Denies: Dryness, Rash Neurological: Denies: Balance problems, Change in Speech, Slurred speech, Confusion, Headaches, Incoordination, Numbness Psychiatric: Denies: Anxiety, Depression Endocrine: Denies: Change in Body Habitus, Polydipsia VTE Information - Inpt Only VTE Present on Admission: No VTE Mechan Device Prophylaxis: None VTE Pharm Prophylaxis ordered?: No - Physical Exam General: Alert, Oriented x3, Cooperative, No apparent distress HEENT: Atraumatic, PERRLA, EOMI Oral: Moist Mucosa, No Gingival or Mucosal Lesions/ Ulcerations Neck: Supple, No JVD, Negative Carotid Bruits, Trachea Midline, Thyroid Normal Size and Texture Lungs: Clear to auscultation, No rhonchi, No wheeze, No rales, Diminished Cardiovascular: Regular rate, Regular Rhythm, Normal S1, Normal S2, PMI Normal Abdomen: Bowel Sounds Present, Soft, Non Tender, Non-Distended, No Hepato-splenomegaly, Obese Extremities: No clubbing, No cyanosis, Edema - + Edema. Skin: No rashes, Ulcer/ Wound - Left leg: Linear laceration on the cabrera of the left leg measuring about 7 cm. 2 areas of black discoloration on the lateral aspect of the left leg with surrounding erythema and minimal serous drainage. Lymphatic: No Cervical, Supraclavicular, or Inguinal Adenopathy Neurological: Cranial nerves II-XII grossly intact, Motor Exam 5/5 strength throughout Psych/Mental Status: Normal Affect, Appropriate, Alert and oriented to time, place, person, mood and affect Vital Signs Temp Pulse Resp BP Pulse Ox 97.9 F 72 16 101/46 L 99 05/10/17 21:23 05/10/17 23:19 05/10/17 23:19 05/10/17 23:19 05/10/17 23:19 Oxygen Flow Rate (L/min) 2 Oxygen Delivery Method Nasal Cannula Weight: 227 lb 15.327 oz Body Mass Index (BMI) 44.5 Finger Stick Blood Glucose 187 Laboratory Tests Past 24 Hrs 05/10/17 05/10/17 21:30 21:30 WBC 11.5 H RBC 4.17 L Hgb 12.4 Hct 39.2 MCV 94.0 MCH 29.7 MCHC 31.6 L RDW 15.8 H RDW Differential 54.0 H Plt Count 243 MPV 9.4 Immature Gran % (Auto) 0.700 Neut % (Auto) 69.7 Lymph % (Auto) 19.5 [place] % (Auto) 9.5 Eos % (Auto) 0.5 Baso % (Auto) 0.1 Absolute Neuts (auto) 8.0 H Absolute Lymphs (auto) 2.25 Total Counted Not Reportable Sodium 139 Potassium 4.5 Chloride 107 Carbon Dioxide 25.0 Anion Gap 7 BUN 36 H Creatinine 1.85 H Estim Creat Clear Calc 19.45 Est GFR (MDRD) Af Amer 34 L Est GFR (MDRD) Non-Af 28 L BUN/Creatinine Ratio 19.5 Glucose 88 Calcium 8.9 Troponin I < 0.02 Clinical Impression(s) from Imaging Studies Chest X-Ray 05/10/17 21:40 IMPRESSION: No acute thoracic pathology. Electronically Signed: Andreas Polanco, at 22:49 EDT Tel , Service support , Assessment/Plan This is a 72 years old female patient presented to the emergency room because of chest pain and she is being admitted for evaluation. #1 chest pain: In context of history of CAD status post stents and CABG as well as type 2 diabetes mellitus, hypertension and hyperlipidemia. EKG revealed no acute ischemic changes. First troponin was negative. Chest x-ray without acute findings. He had stress test back in August, that was normal. Her TIFFANY score is 4. End: Admit toP for observation, cardiac monitoring, serial cardiac enzymes, repeat EKG tomorrow morning, nuclear stress tomorrow morning if cardiac enzymes are negative, continue aspirin, losartan and hold metoprolol for stress test. #2 recent history of left lower extremity injury/laceration/wound: She has been seen at the wound care center, last time was today and she was informed that her wound looks better. She was seen by Dr. Bayron Dutton. She was sent home on Levaquin and clindamycin. At this time, left leg is erythematous with minimal serous drainage. Wound culture was taken today at the wound care center. Plan: Continue clindamycin and Levaquin, wound care nurse consult. #3 CAD status post stents and CABG: Plan as above, continue aspirin, losartan, Xarelto, hold metoprolol for stress test. #4 type 2 diabetes mellitus: ADA diet, Accu-Cheks, insulin sliding scale, hold metformin. #5 hypertension: Blood pressure stable, continue losartan, Lasix and Aldactone. #6 paroxysmal A. fib: Rate is controlled. Continue Xarelto for anticoagulation, hold metoprolol tonight for stress test, resume metoprolol tomorrow. #7 DVT prophylaxis: Continue Xarelto. This note was generated with [employer] dictation software. It may contain incorrect words, spelling, and punctuation that were not noted in checking the note before signing. Code Visit OBSV E&M: [id number] Initial observation care L3
--- NOTE | 2017-05-10 23:42 | HP.PCM_ITS ---
Problem List (1) PVD (peripheral vascular disease) Status: Chronic (2) Ulcer of left lower extremity with fat layer exposed Status: Acute (3) Controlled diabetes mellitus Status: Chronic (4) S/P CABG (coronary artery bypass graft) Status: Chronic Comment: CABG x2 ARREGUIN tp LAD and SVG to OM2 01/02/11 (5) Paroxysmal atrial fibrillation Status: Chronic (6) Hyperlipidemia Status: Chronic (7) Hypertension Status: Chronic History of Present Illness Date of Admission: 05/10/17 Chief Complaint: Chest pain. The patient is a 72 year old F with past medical history as mentioned above presented to the emergency room because of chest pain. Her symptoms started this evening around 8 PM with central chest pain, retrosternal, came on when she was folding her laundry, pressure-like pain, 8 out of 10 in severity, radiates to her neck on the right side, associated with mild shortness of breath and dizziness and it lasted for few minutes and then eased up but started to come back again shortly. At this time, she mentioned that her pain is almost gone. She denied obvious relieving or aggravating factors. She denies syncope or presyncope. Around 2 weeks ago, she had a fall that was complicated by injury and laceration of the left leg and she has been seen at the wound care center and she has been on antibiotics. She was seen today at the wound care center and she was informed that her wound looks better and she was discharged on antibiotics. In the emergency room, her vital signs are stable. Her routine blood work was remarkable for mild leukocytosis and creatinine of 1.85 which is chronic. Troponin is negative. EKG revealed normal sinus rhythm without evidence of acute ischemic changes. Chest x-ray showed no acute infiltrate, consolidation or effusion. She is being admitted for chest pain for evaluation. Past Medical History Past Medical History (Chronic Problems): Chronic Problems (Last Updated 04/11/17 @ 12:11 by Lisa Hutton) PVD (peripheral vascular disease) (Chronic) Controlled diabetes mellitus (Chronic) Edema, lower extremity (Chronic) Presence of stent in coronary artery (Chronic) PTCA/stent to CX; PTCA/Stent PTCA/stent to prox RCA 05/06; PTCA/LILY in mid to distal RCA 08/29/12 Atherosclerotic heart disease of [place] coronary artery without angina pectoris (Chronic) PTCA/stent to CX; PTCA/Stent PTCA/stent to prox RCA 05/06; PTCA/LILY in mid to distal RCA 08/29/12; CABG x2 ARREGUIN tp LAD and SVG to OM2 01/02/11 S/P CABG (coronary artery bypass graft) (Chronic ~01/02/11) CABG x2 ARREGUIN tp LAD and SVG to OM2 01/02/11 Paroxysmal atrial fibrillation (Chronic) Hyperlipidemia (Chronic) Hypertension (Chronic) Allergies ciprofloxacin [From Cipro] Allergy (Verified 05/10/17 21:28) Hives ciprofloxacin HCl [From Cipro] Allergy (Verified 05/10/17 21:28) Hives Latex, Natural Rubber Allergy (Verified 05/10/17 21:28) Rash Penicillins [PCN] Allergy (Verified 05/10/17 21:28) Hives codeine Adverse Reaction (Unknown, Verified 05/10/17 21:28) Unknown adhesive tape Adverse Reaction (Verified 05/10/17 21:28) Rash Home Medications: Ambulatory Orders Medication Instructions Recorded Amiodarone HCl [Cordarone] 200 mg PO DAILY 05/10/17 Clindamycin HCl 300 mg PO 4X/DAY 05/10/17 Clotrimazole/Betamethasone 1 applic TOPICAL BID 05/10/17 [Lotrisone] Docusate Sodium [Colace] 50 mg PO DAILY 05/10/17 Ergocalciferol [Vitamin D] 50,000 unit PO Q7D 05/10/17 Furosemide [Lasix] 40 mg PO BID 05/10/17 Gabapentin [Neurontin] 800 mg PO TIDCM 05/10/17 Losartan Potassium [Cozaar] 100 mg PO DAILY 05/10/17 Magnesium Oxide 400 mg PO BID 05/10/17 Metformin HCl [Glucophage] 500 mg PO BIDCM 05/10/17 Metoprolol Tartrate [Lopressor 50 mg PO BID 05/10/17 (Beta Tommy)] Mirabegron [Myrbetriq] 50 mg PO DAILY 05/10/17 Pantoprazole Sodium [Protonix] 40 mg PO DAILY 05/10/17 Potassium Chloride [Klor-Con] 20 meq PO BID 05/10/17 Rivaroxaban [Xarelto] 15 mg PO DAILY 05/10/17 Spironolactone 25 mg PO DAILY 05/10/17 levoFLOXacin tablet [Levaquin 250 mg PO DAILY 05/10/17 tablet] Surgical History: angioplasty, appendectomy, cholecystectomy, coronary bypass surgery, hysterectomy, tonsillectomy, - - R ankle surgery with hardware. placement of stents (cardiac or lower extremity. patient is unsure). excision upper lip carcinoma. Incision and drainage and excisional debridement infected traumatic open hematoma wound right anterior leg (90 cm2) and incision and drainage and excisional debridement infected traumatic open hematoma wound left anterior leg (72 cm2) - 12/29/14. 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 Sibling History Items: Diabetes Review of Systems Constitutional: Denies: Anorexia, Chills, Fever, Weakness Eyes: Denies: Blurred vision, Double vision, Drainage, Redness HEENT: Denies: Difficulty Hearing, Ear Pain, Eye Pain, Nasal Congestion, Sore Throat Cardiovascular: Reports: Chest Pain, Chest Pressure, Edema. Denies: Heaviness, Light Headedness, Orthopnea, Palpitations, Syncope Respiratory: Reports: Shortness of Breath. Denies: Cough, Hemoptysis, Pleuritic Pain, Sputum production, Wheezing Gastrointestinal: Denies: Abdominal Pain, Constipation, Diarrhea, Nausea, Vomiting Genitourinary: Denies: Dysuria, Frequency, Hematuria Musculoskeletal: Denies: Arm Pain, Back Pain, Foot Pain Skin: Denies: Dryness, Rash Neurological: Denies: Balance problems, Change in Speech, Slurred speech, Confusion, Headaches, Incoordination, Numbness Psychiatric: Denies: Anxiety, Depression Endocrine: Denies: Change in Body Habitus, Polydipsia VTE Information - Inpt Only VTE Present on Admission: No VTE Mechan Device Prophylaxis: None VTE Pharm Prophylaxis ordered?: No - Physical Exam General: Alert, Oriented x3, Cooperative, No apparent distress HEENT: Atraumatic, PERRLA, EOMI Oral: Moist Mucosa, No Gingival or Mucosal Lesions/ Ulcerations Neck: Supple, No JVD, Negative Carotid Bruits, Trachea Midline, Thyroid Normal Size and Texture Lungs: Clear to auscultation, No rhonchi, No wheeze, No rales, Diminished Cardiovascular: Regular rate, Regular Rhythm, Normal S1, Normal S2, PMI Normal Abdomen: Bowel Sounds Present, Soft, Non Tender, Non-Distended, No Hepato- splenomegaly, Obese Extremities: No clubbing, No cyanosis, Edema - + Edema. Skin: No rashes, Ulcer/ Wound - Left leg: Linear laceration on the [place]rera of the left leg measuring about 7 cm. 2 areas of black discoloration on the lateral aspect of the left leg with surrounding erythema and minimal serous drainage. Lymphatic: No Cervical, Supraclavicular, or Inguinal Adenopathy Neurological: Cranial nerves II-XII grossly intact, Motor Exam 5/5 strength throughout Psych/Mental Status: Normal Affect, Appropriate, Alert and oriented to time, place, person, mood and affect Vital Signs Temp Pulse Resp BP Pulse Ox 97.9 F 72 16 101/46 L 99 05/10/17 21:23 05/10/17 23:19 05/10/17 23:19 05/10/17 23:19 05/10/17 23:19 Oxygen Flow Rate (L/min) 2 Oxygen Delivery Method Nasal Cannula Weight: 227 lb 15.327 oz Body Mass Index (BMI) 44.5 Finger Stick Blood Glucose 187 Laboratory Tests Past 24 Hrs 05/10/17 05/10/17 21:30 21:30 WBC 11.5 H RBC 4.17 L Hgb 12.4 Hct 39.2 MCV 94.0 MCH 29.7 MCHC 31.6 L RDW 15.8 H RDW Differential 54.0 H Plt Count 243 MPV 9.4 Immature Gran % (Auto) 0.700 Neut % (Auto) 69.7 Lymph % (Auto) 19.5 [place] % (Auto) 9.5 Eos % (Auto) 0.5 Baso % (Auto) 0.1 Absolute Neuts (auto) 8.0 H Absolute Lymphs (auto) 2.25 Total Counted Not Reportable Sodium 139 Potassium 4.5 Chloride 107 Carbon Dioxide 25.0 Anion Gap 7 BUN 36 H Creatinine 1.85 H Estim Creat Clear Calc 19.45 Est GFR (MDRD) Af Amer 34 L Est GFR (MDRD) Non-Af 28 L BUN/Creatinine Ratio 19.5 Glucose 88 Calcium 8.9 Troponin I < 0.02 Clinical Impression(s) from Imaging Studies Chest X-Ray 05/10/17 21:40 IMPRESSION: No acute thoracic pathology. Electronically Signed: Andreas Polanco, at 22:49 EDT Tel , Service support , Assessment/Plan This is a 72 years old female patient presented to the emergency room because of chest pain and she is being admitted for evaluation. #1 chest pain: In context of history of CAD status post stents and CABG as well as type 2 diabetes mellitus, hypertension and hyperlipidemia. EKG revealed no acute ischemic changes. First troponin was negative. Chest x-ray without acute findings. He had stress test back in August, that was normal. Her TIFFANY score is 4. End: Admit toP for observation, cardiac monitoring, serial cardiac enzymes, repeat EKG tomorrow morning, nuclear stress tomorrow morning if cardiac enzymes are negative, continue aspirin, losartan and hold metoprolol for stress test. #2 recent history of left lower extremity injury/laceration/wound: She has been seen at the wound care center, last time was today and she was informed that her wound looks better. She was seen by Dr. Bayron Dutton. She was sent home on Levaquin and clindamycin. At this time, left leg is erythematous with minimal serous drainage. Wound culture was taken today at the wound care center. Plan: Continue clindamycin and Levaquin, wound care nurse consult. #3 CAD status post stents and CABG: Plan as above, continue aspirin, losartan, Xarelto, hold metoprolol for stress test. #4 type 2 diabetes mellitus: ADA diet, Accu-Cheks, insulin sliding scale, hold metformin. #5 hypertension: Blood pressure stable, continue losartan, Lasix and Aldactone. #6 paroxysmal A. fib: Rate is controlled. Continue Xarelto for anticoagulation , hold metoprolol tonight for stress test, resume metoprolol tomorrow. #7 DVT prophylaxis: Continue Xarelto. This note was generated with [employer] dictation software. It may contain incorrect words, spelling, and punctuation that were not noted in checking the note before signing. Code Visit OBSV E&M: [id number] Initial observation care L3
[2017-05-11] VITALS (14 sets, daily range): BP systolic 104–124; BP diastolic 39–63; PULSE 71–83; RESP 16–18; TEMP 36.6–36.7; O2SAT 92–97; BMI 43.6
[2017-05-11] MEDS: Losartan Potassium 100 MG Tablet PO (05:42)
[2017-05-11] MEDS: Acetaminophen 325 MG Tablet 650 MG PO (05:52)
--- NOTE | 2017-05-11 05:55 | EKG12_ITS ---
Test Reason : AM EKG Blood Pressure : / mmHG Vent. Rate : 070 BPM Atrial Rate : 070 BPM P-R Int : 162 ms QRS Dur : 078 ms QT Int : 414 ms P-R-T Axes : 031 015 128 degrees QTc Int : 447 ms Normal sinus rhythm ST & T wave abnormality, consider lateral ischemia Abnormal ECG When compared with ECG of 10-MAY-2017 22:39, MANUAL COMPARISON REQUIRED, DATA IS UNCONFIRMED Confirmed by BLACK HATCH, PARDEEP ([id number]), index editor SHAHNAZ MARINA ([id number]) on 05/15/2017 9:08:15 AM Referred By: JOSUE Confirmed By:PARDEEP CLEANING MD
[2017-05-11 06:09] LABS: Absolute Lymphocyte Count 1.89 X10^3/ul (0.83-4.51); Absolute Neutrophil Count 6.4 X10^3/uL (2.0-7.7); Basophil# 0.01 X10^3/uL; Basophil% 0.1 % (0-1); Eosinophil# 0.08 X10^3/uL; Eosinophils% 0.9 % (0-5); Hematocrit 37.6 % (37-47); Hemoglobin 11.7 g/dl (12.0-15.0); Lymphocyte # 1.89 X10^3/ul (4.0); Lymphocyte % 20.7 % (19-41); Mean Corp Hgb Conc 31.1 g/gl (32-36); Mean Corpuscular Hgb 29.5 pg (27.0-32.0); Mean Corpuscular Volume 94.9 fL (81-99); Mean Platelet Vol. 9.2 fl (6.2-12.0); Monocyte# 0.71 X10^3/uL; Monocyte% 7.8 % (0-10); Neutrophil # 6.42 X10^3/uL (2.7-7.7); Neutrophil % 70.1 % (47-70); Platelet Count 208 K/mm3 (150-450); RBC Distribution Width CV 15.7 % (11.6-14.6); RBC Distribution Width SD 54.1 fl (35.1-43.9); Red Blood Count 3.96 M/mm3 (4.2-5.4); White Blood Count 9.2 K/mm3 (4.4-11.0)
[2017-05-11 06:11] LABS: POSITIVE COUNT NO; POSITIVE DIFFERENTIAL NO; POSITIVE MORPHOLOGY NO
[2017-05-11 06:14] LABS: International Normalized Ratio 1.3; Prothrombin Time (Protime)PT. 16.5 SECONDS (11.7-14.9)
[2017-05-11 06:15] LABS: Partial Thromboplast Time 30.3 Seconds (24.1-36.2)
[2017-05-11 06:33] LABS: Anion Gap 8 (5-15); BUN 34 mg/dL (7-18); BUN/Creat Ratio 19.9 RATIO (10-20); Calcium,Total 8.8 mg/dL (8.5-10.1); Chloride 104 mmol/L (98-107); Creatinine, Serum 1.71 mg/dL (0.55-1.02); EST Glomerular Filtration Rate 31 mL/min (>60); Est Glom Filt Rate - Afr Amer 38 mL/min (>60); Estimated Creatinine Clearance 46.63 ml/min; Glucose 93 mg/dL (74-106); Potassium 4.4 mmol/L (3.5-5.1); Sodium Level 140 mmol/L (136-145)
[2017-05-11 07:01] LABS: Bedside Glucose 95 mg/dL (70-110)
--- NOTE | 2017-05-11 07:46 | PCM.PROGNOTE ---
Subjective: Patient is a 72-year-old female with a past medical history of peripheral vascular disease, diabetes mellitus type 2, chronic renal failure stage III, coronary artery disease with history of CABG in December 2010, paroxysmal atrial fibrillation, hyperlipidemia and hypertension who presented to the emergency department at [facility] on 05/10/2017 complaining of chest pain. Pain radiated into her neck and was associated with shortness of breath and lightheadedness. It lasted a few minutes and then recurred shortly after. EKG showed normal sinus rhythm without evidence of acute ischemic change. Chest x-ray was unremarkable. Troponin was within normal limits. She was admitted to a monitored bed on PCU and serial cardiac enzymes were ordered. Serial cardiac enzymes were negative. A nuclear stress test was done on 05/11/2017 and showed normal uptake of tracer noted in all areas of the myocardium with no areas of reversibility noted to suggest ischemia. The gated nuclear ejection fraction was 89%. Her lungs were clear to auscultation and the heart had a regular rate and rhythm with no murmur. There was no significant ectopy or dysrhythmia on telemetry. She was discharged home on 05/11/2017. - Physical Exam Vital Signs Temp Pulse Resp BP Pulse Ox 97.9 F 80 18 124/63 H 92 05/11/17 05:43 05/11/17 05:43 05/11/17 05:43 05/11/17 05:43 05/11/17 05:43 Oxygen Delivery Method Room Air Weight: 222 lb 3.615 oz Body Mass Index (BMI) 43.6 Intake and Output for Last 24 Hours 05/09/17 05/10/17 05/11/17 23:59 23:59 23:59 Intake Total 50 / 50 Balance 50 / 50 Laboratory Tests Past 24 Hrs 05/11/17 05/11/17 05/11/17 01:35 05:30 05:30 WBC 9.2 RBC 3.96 L Hgb 11.7 L Hct 37.6 MCV 94.9 MCH 29.5 MCHC 31.1 L RDW 15.7 H RDW Differential 54.1 H Plt Count 208 MPV 9.2 Immature Gran % (Auto) 0.400 Neut % (Auto) 70.1 H Lymph % (Auto) 20.7 [place] % (Auto) 7.8 Eos % (Auto) 0.9 Baso % (Auto) 0.1 Absolute Neuts (auto) 6.4 Absolute Lymphs (auto) 1.89 Total Counted Not Reportable PT INR APTT Sodium Potassium Chloride Carbon Dioxide Anion Gap BUN Creatinine Estim Creat Clear Calc Est GFR (MDRD) Af Amer Est GFR (MDRD) Non-Af BUN/Creatinine Ratio Glucose Calcium Troponin I < 0.02 < 0.02 05/11/17 05/11/17 05:30 05:30 WBC RBC Hgb Hct MCV MCH MCHC RDW RDW Differential Plt Count MPV Immature Gran % (Auto) Neut % (Auto) Lymph % (Auto) [place] % (Auto) Eos % (Auto) Baso % (Auto) Absolute Neuts (auto) Absolute Lymphs (auto) Total Counted PT 16.5 H INR 1.3 APTT 30.3 Sodium 140 Potassium 4.4 Chloride 104 Carbon Dioxide 28.0 Anion Gap 8 BUN 34 H Creatinine 1.71 H Estim Creat Clear Calc 46.63 Est GFR (MDRD) Af Amer 38 L Est GFR (MDRD) Non-Af 31 L BUN/Creatinine Ratio 19.9 Glucose 93 Calcium 8.8 Troponin I POC Glucose 05/11/17 05:51 POC Glucose 95 Medical Necessity - Tobacco Use Smoking Status: Former smoker
--- NOTE | 2017-05-11 09:33 | STRESSREP ---
Stress Test Report Pharmacologic myocardial perfusion stress test. 72-year-old lady with a history of chest pain and coronary artery disease. Stress protocol: Resting EKG demonstrates normal sinus rhythm with a rate of 72 bpm T-wave inversions noted one in aVL. 0.4 mg of regadenoson was infused per usual protocol followed by rapid intravenous saline flush injection continuous EKG monitoring was performed. The maximum heart rate was 89 bpm is 58% maximum predicted heart rate maximum workload was [address] or T-wave changes were noted suggest abnormal flow reserve. Myocardial perfusion protocol. 14.7 mCi of technetium 99m sestamibi was injected stress images were obtained stress and rest images were reconstructed and compared in the short axis vertical long horizontal long axis. At peak infusion 44.8 mCi of technetium 99m sestamibi was injected. Gated images were also obtained Perfusion SPECT analysis: Review of the stress images demonstrate normal uptake of tracer noted in all areas of the myocardium. The resting images similarly demonstrate normal uptake of tracer noted in all areas of the myocardium. No areas of reversibility are noted to suggest ischemia. Gated SPECT analysis: The gated ejection fraction is 89%. Conclusion: Normal pharmacologic myocardial perfusion stress test. Preserved ejection fraction.
--- NOTE | 2017-05-11 09:36 | STRESSREP_ITS ---
Stress Test Report Pharmacologic myocardial perfusion stress test. 72-year-old lady with a history of chest pain and coronary artery disease. Stress protocol: Resting EKG demonstrates normal sinus rhythm with a rate of 72 bpm T-wave inversions noted one in aVL. 0.4 mg of regadenoson was infused per usual protocol followed by rapid intravenous saline flush injection continuous EKG monitoring was performed. The maximum heart rate was 89 bpm is 58% maximum predicted heart rate maximum workload was [address] or T- wave changes were noted suggest abnormal flow reserve. Myocardial perfusion protocol. 14.7 mCi of technetium 99m sestamibi was injected stress images were obtained stress and rest images were reconstructed and compared in the short axis vertical long horizontal long axis. At peak infusion 44.8 mCi of technetium 99m sestamibi was injected. Gated images were also obtained Perfusion SPECT analysis: Review of the stress images demonstrate normal uptake of tracer noted in all areas of the myocardium. The resting images similarly demonstrate normal uptake of tracer noted in all areas of the myocardium. No areas of reversibility are noted to suggest ischemia. Gated SPECT analysis: The gated ejection fraction is 89%. Conclusion: Normal pharmacologic myocardial perfusion stress test. Preserved ejection fraction.
[2017-05-11] MEDS: Amiodarone 200 MG Tablet PO (10:22)
[2017-05-11] MEDS: Furosemide 40 MG Tablet PO ×2 (10:22→16:25)
[2017-05-11] MEDS: Clindamycin HCl 150 MG Capsule 300 MG PO ×2 (10:22→16:23)
[2017-05-11] MEDS: Magnesium Oxide 400 MG Tablet PO (10:22)
[2017-05-11] MEDS: Spironolactone 25 MG Tablet PO (10:23)
[2017-05-11] MEDS: Pantoprazole Sodium 40 MG Tablet PO (10:23)
[2017-05-11] MEDS: Gabapentin 800 MG Tablet PO ×2 (10:23→16:25)
[2017-05-11] MEDS: Docusate Sodium 100 MG/10 ML UDC 50 MG PO (10:24)
[2017-05-11] MEDS: Glucerna Shake 120 ML LIQUID PO ×3 (10:41→16:22)
[2017-05-11] MEDS: Mirabegron 50 MG TAB.ER.24H PO (10:42)
[2017-05-11 10:56] LABS: Bedside Glucose 114 mg/dL (70-110)
[2017-05-11] MEDS: levoFLOXacin 250 MG Tablet PO (10:57)
[2017-05-11] MEDS: Rivaroxaban 15 MG Tablet PO (12:00)
--- NOTE | 2017-05-11 13:07 | NURSING ---
wound photo: left lower leg (anterior view)
--- NOTE | 2017-05-11 13:08 | NURSING ---
wound photo: left lower leg (medial view)
--- NOTE | 2017-05-11 13:09 | NURSING ---
wound photo: left lower leg (lateral view)
--- NOTE | 2017-05-11 16:16 | DCINST_ITS ---
You will use the following diet at home:: Calorie/Carbohydrate Controlled ( specify 1200, 1400, etc) - 1800cal/day, Cardiac Your food should be the consistency of: Regular Your liquids should be the consistency of: Regular/Thin Discharge Activity: Return to Normal Activity Allergies/Adverse Reactions: Allergies ciprofloxacin [From Cipro] Allergy (Verified 05/10/17 21:28) Hives ciprofloxacin HCl [From Cipro] Allergy (Verified 05/10/17 21:28) Hives Latex, Natural Rubber Allergy (Verified 05/10/17 21:28) Rash Penicillins [PCN] Allergy (Verified 05/10/17 21:28) Hives codeine Adverse Reaction (Unknown, Verified 05/10/17 21:28) Unknown adhesive tape Adverse Reaction (Verified 05/10/17:28) Rash Medications to take at Discharge Amiodarone HCl [Cordarone] 200 mg PO DAILY 05/10/17 Clindamycin HCl 300 mg PO 4X/DAY 05/10/17 Clotrimazole/Betamethasone [Lotrisone] 1 applic TOPICAL BID 05/10/17 Docusate Sodium [Colace] 50 mg PO DAILY 05/10/17 Ergocalciferol [Vitamin D] 50,000 unit PO Q7D 05/10/17 Furosemide [Lasix] 40 mg PO BID 05/10/17 Gabapentin [Neurontin] 800 mg PO TIDCM 05/10/17 Losartan Potassium [Cozaar] 100 mg PO DAILY 05/10/17 Magnesium Oxide 400 mg PO BID 05/10/17 Metformin HCl [Glucophage] 500 mg PO BIDCM 05/10/17 Metoprolol Tartrate [Lopressor (beta man)] 50 mg PO BID 05/10/17 Mirabegron [Myrbetriq] 50 mg PO DAILY 05/10/17 Pantoprazole Sodium [Protonix] 40 mg PO DAILY 05/10/17 Rivaroxaban [Xarelto] 15 mg PO DAILY 05/10/17 Spironolactone 25 mg PO DAILY 05/10/17 levoFLOXacin tablet [Levaquin tablet] 250 mg PO DAILY 05/10/17 Nystatin 500,000 unit PO 4X/DAY #1 bottle 05/11/17 The following prescriptions were given: Nystatin 500,000 unit PO 4X/DAY #1 bottle Primary Care Physician: Octaviano Franco Chi, MD [Primary Care Provider] - Please follow up with your Primary Care Physician in: 1-2 weeks Proposed Discharge Date: 05/11/17
--- NOTE | 2017-05-11 16:16 | PCM.DC.SUM ---
Discharge Date and Diagnosis Date of Admission: 05/10/17 Date of Discharge: 05/11/17 - Primary Discharge Diagnosis Chest pain - esophagitis CAD PAF HLD HTN CKDIII - Secondary Discharge Diagnosis Chronic Problems (Last Updated 05/10/17 @ 23:30 by Kary Monk MD) PVD (peripheral vascular disease) (Chronic) Controlled diabetes mellitus (Chronic) Edema, lower extremity (Chronic) Presence of stent in coronary artery (Chronic) PTCA/stent to CX; PTCA/Stent PTCA/stent to prox RCA 05/06; PTCA/LILY in mid to distal RCA 08/29/12 Atherosclerotic heart disease of habematolel coronary artery without angina pectoris (Chronic) PTCA/stent to CX; PTCA/Stent PTCA/stent to prox RCA 05/06; PTCA/LILY in mid to distal RCA 08/29/12; CABG x2 ARREGUIN tp LAD and SVG to OM2 01/02/11 S/P CABG (coronary artery bypass graft) (Chronic ~01/02/11) CABG x2 ARREGUIN tp LAD and SVG to OM2 01/02/11 Paroxysmal atrial fibrillation (Chronic) Hyperlipidemia (Chronic) Hypertension (Chronic) Hospital Course and Treatment Imaging Results: Stress test: Conclusion: Normal pharmacologic myocardial perfusion stress test. Preserved ejection fraction. RAD/Chest 1 View (Portable) IMPRESSION: No acute thoracic pathology. Consultations 05/11/17 00:04 Consult: Onc/Wound/heel cementer machine Routine Comment: Reason for Consult:: Left lower extremity wound/laceration. Operations: None Procedures: Stress test Summary of Care Provided: Physical exam on day of discharge: General: Resting comfortably NAD Psych: A/Ox3 normal affect HEENT: PEARRLA AT NC Neck: Supple NT CV: RRR no m/t/r/g/h Resp: CTA Abd: [id number] Soft NT no guarding or rigidity Ext: DP2+= no edema Skin: W/D normal turgor Lymph/Heme: No active bleeding or adenopathy Neuro: CN2-12 intact Hospital Course: The patient is a 72 year old F with a history of CAD with prior CABG, type 2 diabetes, paroxysmal atrial fibrillation, PVD, hyperlipidemia, hypertension who presents to the emergency room with chief complaint of chest pain which began the evening of presentation about 8:00. Was described as a centralized chest pain in the retrosternal area that began while she was folding her laundry. She described it as an 8 out of 10 pressure radiating to the right side of her neck with mild shortness of breath and dizziness. Lasted for about 2 minutes then spontaneously resolved. She had a second episode later on. She came to the emergency room had a negative EKG, negative troponin, negative chest x-ray. She had a history of CAD with prior CABG procedure very concerned for a cardiac etiology. She is admitted for chest pain rule out. She was kept in the PCU on telemetry, had troponin cycled, repeat EKG, stress test in the following morning. Her cardiac workup was negative. She had recently been placed on Levaquin and clindamycin for cellulitis that developed around lower extremity laceration that was repaired with 12 stitches. Is felt that her retrosternal chest pain may be a result of esophagitis from being on the antibiotics. She is given a GI cocktail and started on nystatin swish and swallow. Is also noticed that she has started to develop a decubitus ulcer in the sacral region and she was given a DuoDERM for this. She will need this reevaluated by her PCP at follow-up. Her other medications remain unchanged deficits unchanged at this time. She is discharged home in stable condition. Please follow-up with your primary care provider in 1-2 weeks. She should also complete her antibiotics as prescribed by her primary care provider. This patient was seen by Donn Reinoso PA-C under the supervision of Doctor James. [] Discharge Diet: Low fat/ Low Cholesterol, 1800 Calorie Control Diet, 2000 mg Sodium Diet Discharge Activity: Return to Normal Activity Home Medications: Medications to take at Discharge Amiodarone HCl [Cordarone] 200 mg PO DAILY 05/10/17 Clindamycin HCl 300 mg PO 4X/DAY 05/10/17 Clotrimazole/Betamethasone [Lotrisone] 1 applic TOPICAL BID 05/10/17 Docusate Sodium [Colace] 50 mg PO DAILY 05/10/17 Ergocalciferol [Vitamin D] 50,000 unit PO Q7D 05/10/17 Furosemide [Lasix] 40 mg PO BID 05/10/17 Gabapentin [Neurontin] 800 mg PO TIDCM 05/10/17 Losartan Potassium [Cozaar] 100 mg PO DAILY 05/10/17 Magnesium Oxide 400 mg PO BID 05/10/17 Metformin HCl [Glucophage] 500 mg PO BIDCM 05/10/17 Metoprolol Tartrate [Lopressor (beta man)] 50 mg PO BID 05/10/17 Mirabegron [Myrbetriq] 50 mg PO DAILY 05/10/17 Pantoprazole Sodium [Protonix] 40 mg PO DAILY 05/10/17 Rivaroxaban [Xarelto] 15 mg PO DAILY 05/10/17 Spironolactone 25 mg PO DAILY 05/10/17 levoFLOXacin tablet [Levaquin tablet] 250 mg PO DAILY 05/10/17 Nystatin 500,000 unit PO 4X/DAY #1 bottle 05/11/17 Following Prescrptions Were Given to Patient: Nystatin 500,000 unit PO 4X/DAY #1 bottle Primary Care Physician: Octaviano Franco Chi, MD [Primary Care Provider] - Please follow up with your Primary Care Physician in: 1-2 weeks Disposition: Home Minutes spent on discharge:: 35 Patient Condition:: Stable Medical Necessity - Tobacco Use Smoking Status: Former smoker Meaningful Use Info Meaningful Use Diagnoses (Choose all that apply): None applicable
[2017-05-11 17:01] LABS: Bedside Glucose 120 mg/dL (70-110)
== END 2017-05-11 16:16 | disposition home or self-care (01) ==
LOC: ED 23:30 → PCU 23:40
PROVIDERS: Admitting Provider Hospitalist; Emergency Provider Emergency Medicine; Family Provider Family Medicine Geriatric Medicine; PCP Family Medicine Geriatric Medicine; Visit Provider Internal Medicine
DX: R07.89 Other chest pain (principal); I25.2 Old myocardial infarction; I25.10 Atherosclerotic heart disease of native coronary artery without angina pectoris; I48.0 Paroxysmal atrial fibrillation; E11.22 Type 2 diabetes mellitus with diabetic chronic kidney disease; I12.9 Hypertensive chronic kidney disease with stage 1 through stage 4 chronic kidney disease, or unspecified chronic kidney disease; N18.3 Chronic kidney disease, stage 3 (moderate); E11.51 Type 2 diabetes mellitus with diabetic peripheral angiopathy without gangrene; R60.0 Localized edema; Z79.899 Other long term (current) drug therapy; Z79.01 Long term (current) use of anticoagulants; Z95.1 Presence of aortocoronary bypass graft; Z79.84 Long term (current) use of oral hypoglycemic drugs; E11.622 Type 2 diabetes mellitus with other skin ulcer; G35 Multiple sclerosis; L97.822 Non-pressure chronic ulcer of other part of left lower leg with fat layer exposed; T81.33XA Disruption of traumatic injury wound repair, initial encounter; S81.812A Laceration without foreign body, left lower leg, initial encounter; W17.89XA Other fall from one level to another, initial encounter; Y93.89 Activity, other specified
CPT/HCPCS: 11042; 11045; 36415; 71045; 78452; 80048; 82962; 84484; 85025; 85610; 85730; 87070; 87075; 87076; 87077; 87186; 87205; 87640; 93005; 93017; 96374; 96375; 97162; 97166; 97802; 99218; 99285; A9500; J7030; A4216; G0378; J2405; J2785

== ENCOUNTER → 2017-05-16 12:34 | Outpatient (CLI) | payer MEDICARE, SELFPAY ==
--- NOTE | 2017-05-16 12:37 | US_ITS ---
STUDY: RENAL ULTRASOUND - COMPLETE REASON FOR EXAM: Female, 72 years old. Acute renal failure TECHNIQUE: Ultrasound evaluation of the kidneys was performed with real-time and static eden-scale imaging. COMPARISON: None. FINDINGS: RIGHT KIDNEY: Normal location of the right kidney, which is normal in size. The right kidney measures 9.5 x 4.1 x 4.9 cm. There is a normal cortex of the right kidney. The renal cortex measures 1.1 cm. There is no right renal mass or cyst. There are no right renal calculi. There is no right hydronephrosis. Echogenic kidneys. DISTAL RIGHT URETER: There is non-visualization of the distal right ureter. There is no demonstrated right ureterovesical junction calculus. There is no demonstrated right ureteral jet. LEFT KIDNEY: Normal location of the left kidney, which is normal in size. The left kidney measures 10.2x4.1x5.5 cm. There is a normal cortex of the left kidney. The renal cortex measures 1.3 cm. There is no left renal mass or cyst. 4 x 6mm nonobstructive left renal calculus. There is no left hydronephrosis. Echogenic kidney. DISTAL LEFT URETER: There is non-visualization of the distal left ureter. There is no demonstrated left ureterovesical junction calculus. There is no demonstrated left ureteral jet. AORTA: There is obscuration of the abdominal aorta by overlying bowel gas I.V.C.: The IVC is obscured. BLADDER: The distended urinary bladder has a volume of 149 ml. There is a normal wall thickness of the distended urinary bladder. There is no demonstrated mass within the urinary bladder. There are no demonstrated bladder calculi. US/Kidney and Bladder IMPRESSION: 4 x 6mm nonobstructive left renal calculus. There is increased echogenicity of both kidneys suggesting chronic medical renal disease. Electronically Signed: Abundio Don MD at 17:38 EDT , Service support ,
== END ==
PROVIDERS: Family Provider Family Medicine Geriatric Medicine; PCP Family Medicine Geriatric Medicine; Visit Provider Internal Medicine Nephrology
DX: N17.9 Acute kidney failure, unspecified (principal)
CPT/HCPCS: 76770

== ENCOUNTER 2017-05-31 10:30 | Outpatient (RCR) | payer MEDICARE, SELFPAY ==
[2017-05-06 01:04] VITALS: PULSE 78; RESP 18; TEMP 37
[2017-05-10 11:22] VITALS: BP 131/73; PULSE 76; RESP 18; TEMP 35.4
--- NOTE | 2017-05-10 12:45 | PCM.WC.PN ---
(1) Ulcer of left lower extremity with fat layer exposed Status: Acute Current Visit: No Code(s): L97.922 - Non-pressure chronic ulcer of unspecified part of left lower leg with fat layer exposed (2) PVD (peripheral vascular disease) Status: Acute Current Visit: No Code(s): I73.9 - Peripheral vascular disease, unspecified (3) Malnutrition Status: Acute Current Visit: No Code(s): E46 - Unspecified protein-calorie malnutrition (4) Controlled diabetes mellitus Status: Chronic Current Visit: No Code(s): E11.9 - Type 2 diabetes mellitus without complications (5) Edema, lower extremity Status: Acute Current Visit: No Code(s): R60.0 - Localized edema Type of Wound Date of Service: 05/10/17 Chief Complaint: Left anterior lower leg ulceration that will not heal. History of Wound: This 72 year old female has significant history of diabetes and multiple sclerosis, bilateral traumatic leg wounds, and other comorbidities. She presents to office today after being referred by Dr. Franco. Per his note, the patient had finished up a prescription for keflex and is on rocephin. Patient states that she recently got a new bed. She says since she is short she had to get a stool in order to get onto her bed. She fell on the stool and got an ulcer on the left anterior leg. She says this happed close to two weeks ago and has not seen much of an improvment since. She has been dressing the ulcer site with bacitracin. She denies any purulence, malodor, redness around the ulcer. She also denies any feelings of nausea, vomiting, fever, or chills currently. Progress of Wound: Patient follows up today. Patient says that on April 22 she fell off of her toilet and she had a laceration on her left anterior cabrera. According to the patient, she was seen in the ER where they sutured her laceration and had her follow up with her primary care. She has since notice some blister formation to the lateral aspect of her leg. She also continues to have an open ulcer to the left lower medial leg that we have been treating in the past. She says she has been trying to keep compression on her legs, but that they keep falling down and rolling up. She was started back on Lasix per Dr. Franco today. She says some of the skin started coming off the areas where the blisters were. She says Dr. Franco took her stitches out, and now the area has some opening as well. Patient says she finished her IV antibiotics and that Dr. Franco now has her on oral antibioitics. She says she is unsure which antibiotics she is currently using. Currently she denies any nausea, vomiting, fever, or chills. - Physical Exam Vital Signs Temp Pulse Resp BP 95.8 F L 76 18 131/73 H 05/10/17 11:22 05/10/17 11:22 05/10/17 11:22 05/10/17 11:22 General: Alert, Oriented x3, Cooperative, No apparent distress Extremities: Capillary Refill Less than 3 Seconds, No Calf Tenderness - negative enma and casanova sign, Diminished Peripheral Pulses - DP and PT pulses non palpable due to edema, Edema - bilateral pitting lower extremity edema Skin: Ulcer/ Wound - Ulcer to left medial lower let still present with measurements noted below. Base is adherent slough, fibrin, biofilm. No probing, tracking, or underminding appreciated. No purulence no malodor and no extending cellulitis. Sutures to anterior proximal cabrera laceration were removed by Dr. Franco. Skin edges no longer well coapted with some separation noted. Measurements noted below. There is no purulence, malodor, or extending cellulitis noted. There is some depth appreciated at its deepest point, however there is no probing to bone, no tracking, and no undermining. Base is mixture of adherent slough, fibrin, biofilm and hyperkeratotic tissue. Lastly, the skin has come off overlying the area of blisters last week. These are now classified as an open ulcer with measurements noted. There is a hard black eschar appreciated to the disatal most aspect. The other remaining base is a mixture of slough, fibrin, and biofilm. There is no probing, tracking, or undermining appreciated. No purulence or malodor. No fluctuance or crepitus noted to any of the ulcer sites. There is some serous drainage noted to ulcers. Hemosiderin skin changes appreciated to lower extremity. Wound Measurements and Assessment WC - Nurse 1 - General Ulcer Measurement Start: 05/10/17 11:22 Freq: Status: Active Protocol: Activity Type Activity Date Activity User E-Sign Co-Sign Detail Recorded Client Recorded Date Recorded By Document 05/10/17 11:22 DL [id number] 05/10/17 11:36 DL 05/10/17 11:22 Wound Center Nurse 1 [Ulcer Assessment] #5 Left Lateral Leg cluster -Current Size (cm) - Length 4 -Current Size (cm) - Width 4.6 -Current Size (cm) - Depth 0.1 -Total Square Cm 18.4 -Epithelialization None Present -Exudate Amt Medium (34-66%) -Exudate Type Serosanguineous -Wound Margin Distinct, Outline Attached -Granulation Amt None Present (0 %) -Necrosis Amt Large (67-100%) -Necrotic Tissue Type Eschar -Structure Exposed N/A -Texture (Char-wound Skin Appearance) Localized Edema -Moisture (Char-wound Skin Appearance No Abnormality ) -Color (Char-wound Skin Appearance) Ecchymosis Erythema Hemosiderin Staining -Temperature (Char-wound Skin No Abnormality Appearance) (Pt Warm) -Ulcer Cleansing Rinsed/ Irrigated with Saline -Foul Odor after Cleansing No -Anesthetic Used 4% Lidocaine Solution #4 L Lat LE Incision -Current Size (cm) - Length 8.2 -Current Size (cm) - Width 0.1 -Current Size (cm) - Depth 0.2 -Total Square Cm 0.82 -Photo Taken No -Exudate Amt Small (1-33%) -Exudate Type Serosanguineous -Wound Margin Distinct, Outline Attached -Granulation Amt Small (1-33%) -Granulation Quality Red -Necrosis Amt Small (1-33%) -Necrotic Tissue Type Adherent Slough -Structure Exposed N/A -Texture (Char-wound Skin Appearance) Localized Edema Scarring -Moisture (Char-wound Skin Appearance No Abnormality ) -Color (Char-wound Skin Appearance) Ecchymosis Erythema Hemosiderin Staining -Temperature (Char-wound Skin No Abnormality Appearance) (Pt Warm) -Ulcer Cleansing Rinsed/ Irrigated with Saline -Foul Odor after Cleansing No -Anesthetic Used 4% Lidocaine Solution #3 LEFT MEDIAL LE (TRAUMA) -Current Size (cm) - Length 1.8 -Current Size (cm) - Width 0.7 -Current Size (cm) - Depth 0.1 -Total Square Cm 1.26 -Photo Taken No -Exudate Amt Medium (34-66%) -Exudate Type Serosanguineous -Wound Margin Indistinct, Non -Visible -Granulation Amt Small (1-33%) -Granulation Quality [place] -Necrosis Amt Small (1-33%) -Necrotic Tissue Type Adherent Slough -Structure Exposed N/A -Texture (Char-wound Skin Appearance) Localized Edema Scarring -Moisture (Char-wound Skin Appearance No Abnormality ) -Color (Char-wound Skin Appearance) Ecchymosis Hemosiderin Staining [Edema Assessment] -Right Calf (cm) 41 -Right Ankle (cm) 30 -Left Calf (cm) 44 -Left Ankle (cm) 29.5 WC - Nurse 2 - General Ulcer CM Notes Start: 05/10/17 11:22 Freq: Status: Active Protocol: Activity Type Activity Date Activity User E-Sign Co-Sign Detail Recorded Client Recorded Date Recorded By Document 05/10/17 11:47 MW [id number] 05/10/17 12:05 MW 05/10/17 11:47 Wound Center Nurse 2 [Procedure/Treatment] #5 Left Lateral Leg cluster -Time 11:48 -Correct Patient Yes -Correct Side, Site, Position Yes -Correct Procedure Yes -Procedure Performed Yes -Type of Procedure Debridement -Clinical Debridement Subcutaneous -Post Debridement Size (cm) - Length 11.2 -Post Debridement Size (cm) - Width 8.5 -Post Debridement Size (cm) - Depth 0.1 -Total Square Cm 95.20 -Wound/Ulcer Outcome Not Healed -Ulcer Cleansing Rinsed/ Irrigated with Saline -Foul Odor after Cleansing No -Bioengineered Tissue No -Bleeding Controlled with Pressure -Treatment Response Procedure Tolerated Well #4 L Lat LE Incision -Time 12:00 -Correct Patient Yes -Correct Side, Site, Position Yes -Correct Procedure Yes -Procedure Performed Yes -Type of Procedure Debridement -Clinical Debridement Subcutaneous -Post Debridement Size (cm) - Length 8.3 -Post Debridement Size (cm) - Width 0.6 -Post Debridement Size (cm) - Depth 0.4 -Total Square Cm 4.98 -Ulcer Cleansing Rinsed/ Irrigated with Saline -Foul Odor after Cleansing No -Bioengineered Tissue No -Bleeding Controlled with Pressure -Treatment Response Procedure Tolerated Well #3 LEFT MEDIAL LE (TRAUMA) -Time 11:49 -Correct Patient Yes -Correct Side, Site, Position Yes -Correct Procedure Yes -Procedure Performed Yes -Type of Procedure Debridement -Clinical Debridement Subcutaneous -Post Debridement Size (cm) - Length 1.4 -Post Debridement Size (cm) - Width 1.1 -Post Debridement Size (cm) - Depth 0.2 -Total Square Cm 1.54 -Wound/Ulcer Outcome Not Healed -Ulcer Cleansing Rinsed/ Irrigated with Saline -Foul Odor after Cleansing No -Bioengineered Tissue No -Bleeding Controlled with Pressure -Treatment Response Procedure Tolerated Well [See Physician Procedure note for Specifics] Pain Scale: 0-10 Numeric [Pain] -Is Patient Pain Free? Yes Musculoskeletal: Tenderness - tenderness to aforementioned ulcer sites Neurological: Sensory exam intact to light touch and pain Psych/Mental Status: Normal Affect, Appropriate Debridement Note Post-Debridement Measurements/Treatment WC - Nurse 2 - General Ulcer CM Notes Start: 05/10/17 11:22 Freq: Status: Active Protocol: Activity Type Activity Date Activity User E-Sign Co-Sign Detail Recorded Client Recorded Date Recorded By Document 05/10/17 11:47 MW [id number] 05/10/17 12:05 MW 05/10/17 11:47 Wound Center Nurse 2 #5 Left Lateral Leg cluster -Time 11:48 -Correct Patient Yes -Correct Side, Site, Position Yes -Correct Procedure Yes -Procedure Performed Yes -Type of Procedure Debridement -Clinical Debridement Subcutaneous -Post Debridement Size (cm) - Length 11.2 -Post Debridement Size (cm) - Width 8.5 -Post Debridement Size (cm) - Depth 0.1 -Total Square Cm 95.20 -Wound/Ulcer Outcome Not Healed -Ulcer Cleansing Rinsed/ Irrigated with Saline -Foul Odor after Cleansing No -Bioengineered Tissue No -Bleeding Controlled with Pressure -Treatment Response Procedure Tolerated Well #4 L Lat LE Incision -Time 12:00 -Correct Patient Yes -Correct Side, Site, Position Yes -Correct Procedure Yes -Procedure Performed Yes -Type of Procedure Debridement -Clinical Debridement Subcutaneous -Post Debridement Size (cm) - Length 8.3 -Post Debridement Size (cm) - Width 0.6 -Post Debridement Size (cm) - Depth 0.4 -Total Square Cm 4.98 -Ulcer Cleansing Rinsed/ Irrigated with Saline -Foul Odor after Cleansing No -Bioengineered Tissue No -Bleeding Controlled with Pressure -Treatment Response Procedure Tolerated Well #3 LEFT MEDIAL LE (TRAUMA) -Time 11:49 -Correct Patient Yes -Correct Side, Site, Position Yes -Correct Procedure Yes -Procedure Performed Yes -Type of Procedure Debridement -Clinical Debridement Subcutaneous -Post Debridement Size (cm) - Length 1.4 -Post Debridement Size (cm) - Width 1.1 -Post Debridement Size (cm) - Depth 0.2 -Total Square Cm 1.54 -Wound/Ulcer Outcome Not Healed -Ulcer Cleansing Rinsed/ Irrigated with Saline -Foul Odor after Cleansing No -Bioengineered Tissue No -Bleeding Controlled with Pressure -Treatment Response Procedure Tolerated Well Pain Scale: 0-10 Numeric Is Patient Pain Free? Yes Wound debrided: left medial lower extremity Laterality: Left Wound Grade/Stage: 1 Type of Debridement: Excisional debridement Anesthesia Used: 4% Lidocaine Solution Depth: in the subcutaneous layer Percentage of wound debrided: 100 Instrument Used: 3mm curette Tissue Removed: adherent slough, fibrin, biofilm Severity: Fat Layer Exposed Amount of bleeding with debridement: Mild Bleeding Controlled with: Pressure Patient tolerated procedure well - Additional Wound Wound debrided: left anterior cabrera Laterality: Left Wound Grade/Stage: 1 Type of Debridement: Excisional debridement Anesthesia Used: 4% Lidocaine Solution Depth: in the subcutaneous layer Percentage of wound debrided: 100 Instrument Used: 3mm curette, #15 blade Tissue Removed: adherent slough, fibrin, hyperkeratotic tissue Severity: Fat Layer Exposed Amount of bleeding with debridement: Mild Bleeding Controlled with: Pressure Patient tolerated procedure: Patient tolerated procedure well - Additional Wound Wound debrided: left lateral lower leg Laterality: Left Wound Grade/Stage: 1 Type of Debridement: Excisional debridement Anesthesia Used: 4% Lidocaine Solution Depth: in the subcutaneous layer Percentage of wound debrided: 100 Instrument Used: 3mm curette, #15 blade Tissue Removed: adherent slough, fibrin, biofilm Severity: Fat Layer Exposed Amount of bleeding with debridement: Mild Bleeding Controlled with: Pressure Patient tolerated procedure: Patient tolerated procedure well Assessment/Plan Assessment: Ulcer to left lower leg with fat layer exposed. DM II. Lower extremity edema Plan: Patient was again examined and evaluated today. All of the aforementioned ulcers were debrided as noted in the clinical panel. Post debridement, the ulcer site to the medial lower leg, proximal aspect of the lateral lower leg, and anterior dehiscence following suture removal to anterior cabrera were all carefully cleansed and then dressed with aquacel ag, dry sterile dressing. The distal part of the lateral ulcer site with the thick eschar was crosshatched and santyl was applied. The dressing is to be changed in this manner daily, followed by tubigrip for compression, followed by renetta bandages. She was instructed that if she cannot tolerate this much compression, that she can remove the renetta wraps. It was discussed the importance of keeping the compression from the toes all the way up to the knee. She was instrcuted on the importance of keeping pressure off of all of the ulcer sites at all times while seated. I again stressed the importance of compression with the patient's healing. She was instructed to wear the tubigrip and to keep her lower extremities elevated while seated. She says Dr. Franco started her back on her lasix and she just started today. She is to try and keep all pressure off of the area otherwise. Patient is to continue with her antibiotics as prescribed by Dr. Franco. Cultures were taken of the anterior dehiscence both aerobic and anaerobic. I recommended a high-protein diet for this patient to supplement wound healing. Patient was educated on all signs and symptoms of local and systemic infection, and was instructed to go to the ER immediately should she notice any. All other questions were answered to the patient's satisfaction. The patient will follow-up in clinic in 1 week to check on progress, or sooner if needed.
[2017-05-10 14:30] LABS: M R Staph aureus DNA By PCR Negative (Negative); Probe Check PASS; Specimen Processing Control PASS; Staph aureus DNA By PCR NEGATIVE (Negative)
[2017-05-17 10:12] VITALS: BP 126/88; PULSE 75; RESP 16; TEMP 36.9
--- NOTE | 2017-05-17 13:25 | PCM.WC.PN ---
(1) Ulcer of left lower extremity with fat layer exposed Status: Acute Current Visit: No Code(s): L97.922 - Non-pressure chronic ulcer of unspecified part of left lower leg with fat layer exposed (2) PVD (peripheral vascular disease) Status: Chronic Current Visit: No Code(s): I73.9 - Peripheral vascular disease, unspecified (3) Controlled diabetes mellitus Status: Chronic Current Visit: No Code(s): E11.9 - Type 2 diabetes mellitus without complications (4) Edema, lower extremity Status: Chronic Current Visit: No Code(s): R60.0 - Localized edema Type of Wound Date of Service: 05/17/17 Chief Complaint: Left anterior lower leg ulceration that will not heal. History of Wound: This 72 year old female has significant history of diabetes and multiple sclerosis, bilateral traumatic leg wounds, and other comorbidities. She presents to office today after being referred by Dr. Franco. Per his note, the patient had finished up a prescription for keflex and is on rocephin. Patient states that she recently got a new bed. She says since she is short she had to get a stool in order to get onto her bed. She fell on the stool and got an ulcer on the left anterior leg. She says this happed close to two weeks ago and has not seen much of an improvment since. She has been dressing the ulcer site with bacitracin. She denies any purulence, malodor, redness around the ulcer. She also denies any feelings of nausea, vomiting, fever, or chills currently. Progress of Wound: Patient presents for follow up today. Patient says that on April 22 she fell off of her toilet and she had a laceration on her left anterior cabrera. She also had some hematoma formation to the left lateral leg as well as a continued left medial lower leg ulcer. She says the ulcers are all covered by black areas today. She says she has been taking her lasix as well as trying to dress the legs and keep compression on them as instructed. Patient says she finished her IV antibiotics and that Dr. Franco now has her on oral antibioitics. She says she is unsure which antibiotics she is currently using. She says she was unable to get santyl as prescribed last week due to cost. She was also seen today by Dr. Brown. Currently she denies any nausea, vomiting, fever, or chills. - Physical Exam Vital Signs Temp Pulse Resp BP 98.4 F 75 16 126/88 H 05/17/17 10:12 05/17/17 10:12 05/17/17 10:12 05/17/17 10:12 General: Alert, Oriented x3, Cooperative, No apparent distress Extremities: Capillary Refill Less than 3 Seconds, No Calf Tenderness - negative enma and casanova sign, Diminished Peripheral Pulses - DP and PT pulses non palpable due to edema, Edema - lower extremity pitting edema Skin: Ulcer/ Wound - Ulcer to left medial lower leg still present with measurements noted below. Appears to be improving this week post debridement. Base is adherent slough, fibrin, biofilm with some hyperkeratotic tissue. No probing, tracking, or underminding appreciated. No purulence no malodor and no extending cellulitis. Sutures to anterior proximal cabrera laceration were removed by Dr. Franco last week and the area has dehisced causing an ulcer. Measurements noted below. There is no purulence, malodor, or extending cellulitis noted. There is some depth appreciated at its deepest point, however there is no probing to bone, no tracking, and no undermining. Ulcer covered by eschar. Base is mixture of adherent slough, fibrin, biofilm and hyperkeratotic tissue. Lastly, there are two hemotomas with hard eschar to the left lateral leg. Once eschar removed and the hematoma removed, the remaining base is a mixture of slough, fibrin, and biofilm. There is no probing, tracking appreciated. No purulence or malodor. No fluctuance or crepitus noted to any of the ulcer sites. Hemosiderin skin changes appreciated to lower extremity. Wound Measurements and Assessment WC - Nurse 1 - General Ulcer Measurement Start: 05/10/17 11:22 Freq: Status: Active Protocol: Activity Type Activity Date Activity User E-Sign Co-Sign Detail Recorded Client Recorded Date Recorded By Document 05/17/17 10:12 [facility] [id number] 05/17/17 10:31 [facility] 05/17/17 10:12 Wound Center Nurse 1 [Ulcer Assessment] #5 Left Lateral Leg superior -Combined with other wound No -Current Size (cm) - Length 10.5 -Current Size (cm) - Width 8.3 -Current Size (cm) - Depth 0.1 -Total Square Cm 87.15 -Date of Last Picture (Recall this 05/17/17 field) -Photo Taken Yes -Epithelialization None Present -Tunneling No -Undermining/Tunneling No -Circular Undermining No -Exudate Amt Small (1-33%) -Exudate Type Sanguineous -Wound Margin Distinct, Outline Attached -Granulation Amt None Present (0 %) -Slough/Fibrin Yes -Necrosis Amt Large (67-100%) -Necrotic Tissue Type Eschar -Structure Exposed N/A -Texture (Char-wound Skin Appearance) Scarring -Moisture (Char-wound Skin Appearance Assessed ) -Color (Char-wound Skin Appearance) Erythema Hemosiderin Staining -Temperature (Char-wound Skin No Abnormality Appearance) (Pt Warm) -Tenderness on Palpation (Char-wound Yes Skin Appearance) -Ulcer Cleansing Wound Cleanser -Foul Odor after Cleansing No -Anesthetic Used 5% Lidocaine Gel #4 L Lat LE Incision -Combined with other wound No -Current Size (cm) - Length 7.2 -Current Size (cm) - Width 1.4 -Current Size (cm) - Depth 0.2 -Total Square Cm 10.08 -Date of Last Picture (Recall this 05/17/17 field) -Photo Taken Yes -Epithelialization None Present -Tunneling No -Undermining/Tunneling No -Circular Undermining No -Exudate Amt Small (1-33%) -Exudate Type Sanguineous -Wound Margin Distinct, Outline Attached -Granulation Amt None Present (0 %) -Slough/Fibrin Yes -Necrosis Amt Large (67-100%) -Necrotic Tissue Type Eschar -Structure Exposed N/A -Texture (Char-wound Skin Appearance) Scarring -Moisture (Char-wound Skin Appearance Assessed ) -Color (Char-wound Skin Appearance) Erythema -Temperature (Char-wound Skin No Abnormality Appearance) (Pt Warm) -Ulcer Cleansing Wound Cleanser -Foul Odor after Cleansing No -Anesthetic Used 5% Lidocaine Gel #3 LEFT MEDIAL LE (TRAUMA) -Combined with other wound No -Current Size (cm) - Length 1.2 -Current Size (cm) - Width 0.6 -Current Size (cm) - Depth 0.1 -Total Square Cm 0.72 -Date of Last Picture (Recall this 05/17/17 field) -Photo Taken Yes -Epithelialization None Present -Tunneling No -Undermining/Tunneling No -Circular Undermining No -Exudate Amt Small (1-33%) -Exudate Type Sanguineous -Wound Margin Distinct, Outline Attached -Granulation Amt None Present (0 %) -Slough/Fibrin Yes -Necrosis Amt Large (67-100%) -Necrotic Tissue Type Eschar -Structure Exposed N/A -Texture (Char-wound Skin Appearance) Scarring -Moisture (Char-wound Skin Appearance Assessed ) -Color (Char-wound Skin Appearance) Erythema -Temperature (Char-wound Skin No Abnormality Appearance) (Pt Warm) -Tenderness on Palpation (Char-wound Yes Skin Appearance) -Ulcer Cleansing Wound Cleanser -Foul Odor after Cleansing No -Anesthetic Used 5% Lidocaine Gel [Edema Assessment] -Lower Limb Edema Present Yes -Left Calf (cm) 40.6 -Left Ankle (cm) 27.5 WC - Nurse 2 - General Ulcer CM Notes Start: 05/10/17 11:22 Freq: Status: Active Protocol: Activity Type Activity Date Activity User E-Sign Co-Sign Detail Recorded Client Recorded Date Recorded By Document 05/17/17 11:20 MW [id number] 05/17/17 12:03 MW 05/17/17 11:20 Wound Center Nurse 2 [Procedure/Treatment] #6 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 INFERIOR -Time 11:49 -Correct Patient Yes -Correct Side, Site, Position Yes -Correct Procedure Yes -Procedure Performed Yes -Type of Procedure Debridement -Clinical Debridement Subcutaneous -Post Debridement Size (cm) - Length 5.4 -Post Debridement Size (cm) - Width 4.7 -Post Debridement Size (cm) - Depth 0.6 -Total Square Cm 25.38 -Wound/Ulcer Outcome Not Healed -Ulcer Cleansing Rinsed/ Irrigated with Saline -Foul Odor after Cleansing No -Bioengineered Tissue No -Bleeding Controlled with Pressure -Treatment Response Procedure Tolerated Well #5 Left Lateral Leg superior -Time 11:29 -Correct Patient Yes -Correct Side, Site, Position Yes -Correct Procedure Yes -Procedure Performed Yes -Type of Procedure Debridement -Clinical Debridement Subcutaneous -Post Debridement Size (cm) - Length 3.7 -Post Debridement Size (cm) - Width 5.0 -Post Debridement Size (cm) - Depth 0.7 -Total Square Cm 18.50 -Wound/Ulcer Outcome Not Healed -Ulcer Cleansing Rinsed/ Irrigated with Saline -Foul Odor after Cleansing No -Bioengineered Tissue No -Injectable Lidocaine (%) 1 -Lidocaine (ml) 10 -Bleeding Controlled with Pressure -Treatment Response Procedure Tolerated Well #4 L Lat LE Incision -Time 11:38 -Correct Patient Yes -Correct Side, Site, Position Yes -Correct Procedure Yes -Procedure Performed Yes -Type of Procedure Debridement -Clinical Debridement Subcutaneous -Post Debridement Size (cm) - Length 4.7 -Post Debridement Size (cm) - Width 1.5 -Post Debridement Size (cm) - Depth 0.4 -Total Square Cm 7.05 -Wound/Ulcer Outcome Not Healed -Ulcer Cleansing Rinsed/ Irrigated with Saline -Foul Odor after Cleansing No -Bioengineered Tissue No -Bleeding Controlled with Pressure -Treatment Response Procedure Tolerated Well #3 LEFT MEDIAL LE (TRAUMA) -Time 11:39 -Correct Patient Yes -Correct Side, Site, Position Yes -Correct Procedure Yes -Procedure Performed Yes -Type of Procedure Debridement -Clinical Debridement Subcutaneous -Post Debridement Size (cm) - Length 1.0 -Post Debridement Size (cm) - Width 0.4 -Post Debridement Size (cm) - Depth 0.2 -Total Square Cm 0.40 -Wound/Ulcer Outcome Not Healed -Ulcer Cleansing Rinsed/ Irrigated with Saline -Foul Odor after Cleansing No -Bioengineered Tissue No -Bleeding Controlled with Pressure -Treatment Response Procedure Tolerated Well [See Physician Procedure note for Specifics] Pain Scale: 0-10 Numeric [Pain] -Is Patient Pain Free? Yes Musculoskeletal: Tenderness - to aforementioned ulcer sites Neurological: Sensory exam intact to light touch and pain Psych/Mental Status: Normal Affect, Appropriate Debridement Note Post-Debridement Measurements/Treatment WC - Nurse 2 - General Ulcer CM Notes Start: 05/10/17 11:22 Freq: Status: Active Protocol: Activity Type Activity Date Activity User E-Sign Co-Sign Detail Recorded Client Recorded Date Recorded By Document 05/10/17 11:47 MW [id number] 05/10/17 12:05 MW Document 05/17/17 11:20 MW [id number] 05/17/17 12:03 MW 05/10/17 05/17/17 11:47 11:20 Wound Center Nurse 2 #6 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 INFERIOR -Time 11:49 -Correct Patient Yes -Correct Side, Site, Position Yes -Correct Procedure Yes -Procedure Performed Yes -Type of Procedure Debridement -Clinical Debridement Subcutaneous -Post Debridement Size (cm) - Length 5.4 -Post Debridement Size (cm) - Width 4.7 -Post Debridement Size (cm) - Depth 0.6 -Total Square Cm 25.38 -Wound/Ulcer Outcome Not Healed -Ulcer Cleansing Rinsed/ Irrigated with Saline -Foul Odor after Cleansing No -Bioengineered Tissue No -Bleeding Controlled with Pressure -Treatment Response Procedure Tolerated Well #5 Left Lateral Leg superior -Time 11:48 11:29 -Correct Patient Yes Yes -Correct Side, Site, Position Yes Yes -Correct Procedure Yes Yes -Procedure Performed Yes Yes -Type of Procedure Debridement Debridement -Clinical Debridement Subcutaneous Subcutaneous -Post Debridement Size (cm) - Length 11.2 3.7 -Post Debridement Size (cm) - Width 8.5 5.0 -Post Debridement Size (cm) - Depth 0.1 0.7 -Total Square Cm 95.20 18.50 -Wound/Ulcer Outcome Not Healed Not Healed -Ulcer Cleansing Rinsed/ Rinsed/ Irrigated with Irrigated with Saline Saline -Foul Odor after Cleansing No No -Bioengineered Tissue No No -Injectable Lidocaine (%) 1 -Lidocaine (ml) 10 -Bleeding Controlled with Pressure Pressure -Treatment Response Procedure Procedure Tolerated Well Tolerated Well #4 L Lat LE Incision -Time 12:00 11:38 -Correct Patient Yes Yes -Correct Side, Site, Position Yes Yes -Correct Procedure Yes Yes -Procedure Performed Yes Yes -Type of Procedure Debridement Debridement -Clinical Debridement Subcutaneous Subcutaneous -Post Debridement Size (cm) - Length 8.3 4.7 -Post Debridement Size (cm) - Width 0.6 1.5 -Post Debridement Size (cm) - Depth 0.4 0.4 -Total Square Cm 4.98 7.05 -Wound/Ulcer Outcome Not Healed -Ulcer Cleansing Rinsed/ Rinsed/ Irrigated with Irrigated with Saline Saline -Foul Odor after Cleansing No No -Bioengineered Tissue No No -Bleeding Controlled with Pressure Pressure -Treatment Response Procedure Procedure Tolerated Well Tolerated Well #3 LEFT MEDIAL LE (TRAUMA) -Time 11:49 11:39 -Correct Patient Yes Yes -Correct Side, Site, Position Yes Yes -Correct Procedure Yes Yes -Procedure Performed Yes Yes -Type of Procedure Debridement Debridement -Clinical Debridement Subcutaneous Subcutaneous -Post Debridement Size (cm) - Length 1.4 1.0 -Post Debridement Size (cm) - Width 1.1 0.4 -Post Debridement Size (cm) - Depth 0.2 0.2 -Total Square Cm 1.54 0.40 -Wound/Ulcer Outcome Not Healed Not Healed -Ulcer Cleansing Rinsed/ Rinsed/ Irrigated with Irrigated with Saline Saline -Foul Odor after Cleansing No No -Bioengineered Tissue No No -Bleeding Controlled with Pressure Pressure -Treatment Response Procedure Procedure Tolerated Well Tolerated Well Pain Scale: 0-10 Numeric Is Patient Pain Free? Yes Yes Wound debrided: left lateral leg superior Laterality: Left Type of Debridement: Excisional debridement Anesthesia Used: 4% Lidocaine Solution, - - 1% lidocaine plain injected around site. Depth: in the subcutaneous layer Percentage of wound debrided: 100 Instrument Used: 5mm curette Tissue Removed: eschar, hematoma, slough, fibrin, biofilm Severity: Fat Layer Exposed Amount of bleeding with debridement: Moderate Bleeding Controlled with: Pressure Patient tolerated procedure well - Additional Wound Wound debrided: left lateral leg inferior Laterality: Left Type of Debridement: Excisional debridement Anesthesia Used: 4% Lidocaine Solution, - - 1% lidocaine plain injected around ulcer Depth: in the subcutaneous layer Percentage of wound debrided: 100 Instrument Used: 5mm curette Tissue Removed: eschar, hematoma, slough, fibrin, biofilm Severity: Fat Layer Exposed Amount of bleeding with debridement: Moderate Bleeding Controlled with: Pressure Patient tolerated procedure: Patient tolerated procedure well - Additional Wound Wound debrided: left proximal anterior leg Laterality: Left Type of Debridement: Excisional debridement Anesthesia Used: 4% Lidocaine Solution, - - 1% lidocaine plain injected Depth: in the subcutaneous layer Percentage of wound debrided: 100 Instrument Used: 5mm curette Tissue Removed: eschar, slough, fibrin, biofilm Severity: Fat Layer Exposed Amount of bleeding with debridement: Mild Bleeding Controlled with: Pressure Patient tolerated procedure: Patient tolerated procedure well - Additional Wound Wound debrided: left medial lower leg Laterality: Left Type of Debridement: Excisional debridement Anesthesia Used: 4% Lidocaine Solution Depth: in the subcutaneous layer Percentage of wound debrided: 100 Instrument Used: 5mm curette Tissue Removed: adherent slough, fibrin, biofilm, hyperkeratotic tissue Severity: Fat Layer Exposed Amount of bleeding with debridement: Mild Bleeding Controlled with: Pressure Patient tolerated procedure: Patient tolerated procedure well Assessment/Plan Assessment: Ulcer to left lower leg with fat layer exposed. DM II. Lower extremity edema Plan: Patient was again examined and evaluated today. All of the aforementioned ulcers were debrided subcutaneously as noted in the clinical panel. There is significant depth noted to the left lateral leg ulcers where the eschar and hemotomas were removed. Once all of the ulcers were debrided and carefully cleansed, the ulcer sites were then dressed with aquacel ag, followed by a dry sterile dressing along with tubigrips followed by JASMINE wraps. The dressing is to be changed in this manner daily. It was discussed the importance of keeping the compression from the toes all the way up to the knee. She was instrcuted on the importance of keeping pressure off of all of the ulcer sites at all times while seated. I again stressed the importance of compression with the patient's healing. She was instructed to wear the tubigrip and to keep her lower extremities elevated while seated. She is to continue with lasix as prescribed by Dr. Franco. Dr. Brown saw the patient after reviewing her culture results from last visit. He started the patient on a two week course of linezolid and flagyl. She is to take these as directed. I recommended a high-protein diet for this patient to supplement wound healing. Patient was educated on all signs and symptoms of local and systemic infection, and was instructed to go to the ER immediately should she notice any. All other questions were answered to the patient's satisfaction. The patient will follow-up in clinic in 1 week to check on progress, or sooner if needed.
--- NOTE | 2017-05-17 22:09 | CON.PCM_ITS ---
Problem List (1) Ulcer of left lower extremity with fat layer exposed Status: Acute Reason for Consult: infected leg ulcer Consulted by: Dr. Dutton History of Present Illness: The patient is a 72 year old F with DM who fell and cut her L cabrera about 4 weeks ago. Has had difficulty healing, ongoing eschar. Some pain. No fever or chills. Recently admitted to [facility], discharged on 05/11 on nystatin for thrush and levaquin/clinda. Recent wound cx with MRSE, anaerobes. Full ROS performed and neg except as noted above. - Medical History Past Medical History (Chronic Problems): Chronic Problems (Last Updated 05/10/17 @ 23:30 by Kary Monk MD) PVD (peripheral vascular disease) (Chronic) Controlled diabetes mellitus (Chronic) Edema, lower extremity (Chronic) Presence of stent in coronary artery (Chronic) PTCA/stent to CX; PTCA/Stent PTCA/stent to prox RCA 05/06; PTCA/LILY in mid to distal RCA 08/29/12 Atherosclerotic heart disease of [place] coronary artery without angina pectoris (Chronic) PTCA/stent to CX; PTCA/Stent PTCA/stent to prox RCA 05/06; PTCA/LILY in mid to distal RCA 08/29/12; CABG x2 ARREGUIN tp LAD and SVG to OM2 01/02/11 S/P CABG (coronary artery bypass graft) (Chronic ~01/02/11) CABG x2 ARREGUIN tp LAD and SVG to OM2 01/02/11 Paroxysmal atrial fibrillation (Chronic) Hyperlipidemia (Chronic) Hypertension (Chronic) Allergies/Adverse Reactions: Allergies ciprofloxacin [From Cipro] Allergy (Verified 05/10/17 21:28) Hives ciprofloxacin HCl [From Cipro] Allergy (Verified 05/10/17 21:28) Hives Latex, Natural Rubber Allergy (Verified 05/10/17 21:28) Rash Penicillins [PCN] Allergy (Verified 05/10/17 21:28) Hives codeine Adverse Reaction (Unknown, Verified 05/10/17 21:28) Unknown adhesive tape Adverse Reaction (Verified 05/10/17 21:28) Rash Home Medications: Ambulatory Orders Medication Instructions Recorded Amiodarone HCl [Cordarone] 200 mg PO DAILY 05/10/17 Clindamycin HCl 300 mg PO 4X/DAY 05/10/17 Clotrimazole/Betamethasone 1 applic TOPICAL BID 05/10/17 [Lotrisone] Docusate Sodium [Colace] 50 mg PO DAILY 05/10/17 Ergocalciferol [Vitamin D] 50,000 unit PO Q7D 05/10/17 Furosemide [Lasix] 40 mg PO BID 05/10/17 Gabapentin [Neurontin] 800 mg PO TIDCM 05/10/17 Losartan Potassium [Cozaar] 100 mg PO DAILY 05/10/17 Magnesium Oxide 400 mg PO BID 05/10/17 Metformin HCl [Glucophage] 500 mg PO BIDCM 05/10/17 Metoprolol Tartrate [Lopressor 50 mg PO BID 05/10/17 (beta man)] Mirabegron [Myrbetriq] 50 mg PO DAILY 05/10/17 Pantoprazole Sodium [Protonix] 40 mg PO DAILY 05/10/17 Rivaroxaban [Xarelto] 15 mg PO DAILY 05/10/17 Spironolactone 25 mg PO DAILY 05/10/17 levoFLOXacin tablet [Levaquin 250 mg PO DAILY 05/10/17 tablet] Nystatin 500,000 unit PO 4X/DAY #1 bottle 05/11/17 - Social History Tobacco Use: non-smoker Vital Signs Temp Pulse Resp BP 98.4 F 75 16 126/88 H 05/17/17 10:12 05/17/17 10:12 05/17/17 10:12 05/17/17 10:12 Oxygen Delivery Method Room Air Finger Stick Blood Glucose 187 Microbiology Past 72 Hours 05/10/17 12:00 Gram Stain - Final Wound - Other Wound Culture - Final Staphylococcus epidermidis Anaerobic Culture - Final Anaerobic cocci Fusobacterium varium - Other Studies Radiology: [] reviewed Other Studies: [] Route of nutrition/ use of supplements: [] Nutritional Intake: [] IV Site: [] [place] Catheter: [] - Physical Exam General: Alert, Oriented x3, Cooperative HEENT: Atraumatic, PERRLA, EOMI Lungs: Clear to auscultation, Normal air movement Cardiovascular: Regular rate, Regular Rhythm, No murmurs Abdomen: Bowel Sounds Present, Soft, Non Tender, Non-Distended Extremities: Edema Skin: Ulcer/ Wound - L cabrera wound with eschar, reviewed photos Musculoskeletal: No Tenderness to Palpation of Joints or Extremities Neurological: Cranial nerves II-XII grossly intact - Assessment/Plan Antibiotics: [] Assessment/Plan: [] L cabrera infected wound - recent cx with MRSE and anaerobes. Will give 2 week course of linezolid and flagyl. She does not drink etoh. Gave coupon to help with cost of linezolid. Reviewed labs and med list. Thank you, will follow as needed. D/w Dr. Dutton.
[2017-05-24 10:29] VITALS: BP 138/96; PULSE 78; RESP 18; TEMP 36.8
--- NOTE | 2017-05-24 14:03 | PN.PCM_ITS ---
(1) Ulcer of left lower extremity with fat layer exposed Status: Acute Current Visit: No Code(s): L97.922 - Non-pressure chronic ulcer of unspecified part of left lower leg with fat layer exposed (2) PVD (peripheral vascular disease) Status: Chronic Current Visit: No Code(s): I73.9 - Peripheral vascular disease, unspecified (3) Controlled diabetes mellitus Status: Chronic Current Visit: No Code(s): E11.9 - Type 2 diabetes mellitus without complications (4) Edema, lower extremity Status: Chronic Current Visit: No Code(s): R60.0 - Localized edema Type of Wound Date of Service: 05/24/17 Chief Complaint: Left anterior lower leg ulceration that will not heal. History of Wound: This 72 year old female has significant history of diabetes and multiple sclerosis, bilateral traumatic leg wounds, and other comorbidities. She presents to office today after being referred by Dr. Franco. Per his note, the patient had finished up a prescription for keflex and is on rocephin. Patient states that she recently got a new bed. She says since she is short she had to get a stool in order to get onto her bed. She fell on the stool and got an ulcer on the left anterior leg. She says this happed close to two weeks ago and has not seen much of an improvment since. She has been dressing the ulcer site with bacitracin. She denies any purulence, malodor, redness around the ulcer. She also denies any feelings of nausea, vomiting, fever, or chills currently. Progress of Wound: Patient presents for follow up today. Patient says that on April 22 she fell off of her toilet and she had a laceration on her left anterior cabrera. She also had some hematoma formation to the left lateral leg as well as a continued left medial lower leg ulcer. Since the hematoma removal last visit, patient says she has been following the dressing changes as instructed as well as trying to keep compression over the area. She says she has been taking her lasix. Patient says she continues to be on antibiotics per ID. Currently she denies any nausea, vomiting, fever, or chills. - Physical Exam Vital Signs Temp Pulse Resp BP 98.2 F 78 18 138/96 H 05/24/17 10:29 05/24/17 10:29 05/24/17 10:29 05/24/17 10:29 General: Alert, Oriented x3, Cooperative, No apparent distress Extremities: Capillary Refill Less than 3 Seconds, No Calf Tenderness - negative enma and casanova sign appreciated, Diminished Peripheral Pulses - DP and PT pulses nonpalpable due to pitting edema, Edema - Lower extremity pitting edema Skin: Ulcer/ Wound - Ulcer to left medial lower leg still present at today's visit but greatly improved in appearance and size. The base is noted to be a mixture of adherent slough, fibrin, biofilm with some slight hyperkeratotic tissue. There continues to be no probing, tracking, or undermining noted. There is no purulence and no malodor or extending cellulitis appreciated to this area. There are also 3 ulcers on the proximal lower leg as noted below. Hematoma was removed from these areas last week. Today, the base of all 3 ulcers is a mixture of adherent slough, fibrin, biofilm, necrotic tissue, and hyperkeratotic tissue. There is no probing to bone, no tracking noted. There is no purulence, no extending cellulitis, no malodor, and no increase in warmth to the area. Hemosiderin skin changes appreciated lower extremity. Wound Measurements and Assessment WC - Nurse 1 - General Ulcer Measurement Start: 05/10/17 11:22 Freq: Status: Active Protocol: Activity Type Activity Date Activity User E-Sign Co-Sign Detail Recorded Client Recorded Date Recorded By Document 05/24/17 10:29 RB [id number] 05/24/17 10:49 RB 05/24/17 10:29 Wound Center Nurse 1 [Ulcer Assessment] #6 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 INFERIOR -Current Size (cm) - Length 5.3 -Current Size (cm) - Width 4.7 -Current Size (cm) - Depth 0.2 -Total Square Cm 24.91 -Photo Taken No -Tunneling No -Undermining/Tunneling No -Circular Undermining No -Exudate Amt Medium (34-66%) -Exudate Type Serosanguineous -Wound Margin Thickened & Rolled Under -Granulation Amt Medium (34-66%) -Granulation Quality [place] -Slough/Fibrin Yes -Necrosis Amt Large (67-100%) -Necrotic Tissue Type Adherent Slough -Structure Exposed N/A -Texture (Char-wound Skin Appearance) Assessed -Moisture (Char-wound Skin Appearance Assessed ) Dry/Scaly -Color (Char-wound Skin Appearance) Assessed -Temperature (Char-wound Skin No Abnormality Appearance) (Pt Warm) -Tenderness on Palpation (Char-wound No Skin Appearance) -Ulcer Cleansing Wound Cleanser -Foul Odor after Cleansing No -Anesthetic Used 5% Lidocaine Gel #5 Left Lateral Leg superior -Combined with other wound No -Current Size (cm) - Length 4 -Current Size (cm) - Width 5.5 -Current Size (cm) - Depth 0.3 -Total Square Cm 22.0 -Photo Taken No -Tunneling No -Undermining/Tunneling No -Circular Undermining No -Exudate Amt Medium (34-66%) -Exudate Type Serosanguineous -Wound Margin Thickened & Rolled Under -Granulation Amt Medium (34-66%) -Granulation Quality [place] -Slough/Fibrin Yes -Necrosis Amt Large (67-100%) -Necrotic Tissue Type Adherent Slough -Structure Exposed N/A -Texture (Char-wound Skin Appearance) Assessed -Moisture (Char-wound Skin Appearance Assessed ) -Color (Char-wound Skin Appearance) Assessed -Temperature (Char-wound Skin No Abnormality Appearance) (Pt Warm) -Tenderness on Palpation (Char-wound No Skin Appearance) -Ulcer Cleansing Wound Cleanser -Foul Odor after Cleansing No -Anesthetic Used 5% Lidocaine Gel #4 L Lat LE Incision -Combined with other wound No -Current Size (cm) - Length 5.5 -Current Size (cm) - Width 1.4 -Current Size (cm) - Depth 0.2 -Total Square Cm 7.70 -Photo Taken No -Tunneling No -Undermining/Tunneling No -Circular Undermining No -Exudate Amt Small (1-33%) -Exudate Type Serosanguineous -Wound Margin Thickened & Rolled Under -Granulation Amt Medium (34-66%) -Granulation Quality [place] -Slough/Fibrin Yes -Necrosis Amt Medium (34-66%) -Necrotic Tissue Type Adherent Slough -Structure Exposed N/A -Texture (Char-wound Skin Appearance) Assessed -Moisture (Char-wound Skin Appearance Dry/Scaly ) -Color (Char-wound Skin Appearance) Assessed -Temperature (Char-wound Skin No Abnormality Appearance) (Pt Warm) -Tenderness on Palpation (Char-wound Yes Skin Appearance) -Ulcer Cleansing Wound Cleanser -Anesthetic Used 5% Lidocaine Gel #3 LEFT MEDIAL LE (TRAUMA) -Combined with other wound No -Current Size (cm) - Length 0.1 -Current Size (cm) - Width 0.1 -Current Size (cm) - Depth 0.1 -Total Square Cm 0.01 -Photo Taken No -Tunneling No -Undermining/Tunneling No -Circular Undermining No -Classification - Thickness Full Thickness without Exposed Support Structure -Exudate Amt Small (1-33%) -Exudate Type Serosanguineous -Wound Margin Distinct, Outline Attached -Granulation Amt Large (67-100%) -Granulation Quality [place] -Slough/Fibrin Yes -Necrosis Amt Small (1-33%) -Necrotic Tissue Type Adherent Slough -Structure Exposed N/A -Texture (Char-wound Skin Appearance) Assessed -Moisture (Char-wound Skin Appearance Assessed ) -Color (Char-wound Skin Appearance) Assessed -Temperature (Char-wound Skin No Abnormality Appearance) (Pt Warm) -Tenderness on Palpation (Char-wound No Skin Appearance) -Ulcer Cleansing Wound Cleanser -Foul Odor after Cleansing No -Anesthetic Used 5% Lidocaine Gel [Edema Assessment] -Lower Limb Edema Present Yes -Left Calf (cm) 42 -Left Ankle (cm) 26.5 WC - Nurse 2 - General Ulcer CM Notes Start: 05/10/17 11:22 Freq: Status: Active Protocol: Activity Type Activity Date Activity User E-Sign Co-Sign Detail Recorded Client Recorded Date Recorded By Document 05/24/17 11:07 MW [id number] 05/24/17 11:32 MW 05/24/17 11:07 Wound Center Nurse 2 [Procedure/Treatment] #6 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 INFERIOR -Time 11:07 -Correct Patient Yes -Correct Side, Site, Position Yes -Correct Procedure Yes -Procedure Performed Yes -Type of Procedure Debridement -Clinical Debridement Subcutaneous -Post Debridement Size (cm) - Length 5.7 -Post Debridement Size (cm) - Width 4.5 -Post Debridement Size (cm) - Depth 0.4 -Total Square Cm 25.65 -Wound/Ulcer Outcome Not Healed -Ulcer Cleansing Rinsed/ Irrigated with Saline -Foul Odor after Cleansing No -Bioengineered Tissue No -Injectable Lidocaine (%) 1 -Lidocaine (ml) 10 -Bleeding Controlled with Pressure -Treatment Response Procedure Tolerated Well #5 Left Lateral Leg superior -Time 11:07 -Correct Patient Yes -Correct Side, Site, Position Yes -Correct Procedure Yes -Procedure Performed Yes -Type of Procedure Debridement -Clinical Debridement Subcutaneous -Post Debridement Size (cm) - Length 4.5 -Post Debridement Size (cm) - Width 6.0 -Post Debridement Size (cm) - Depth 0.4 -Total Square Cm 27.00 -Wound/Ulcer Outcome Not Healed -Ulcer Cleansing Rinsed/ Irrigated with Saline -Foul Odor after Cleansing No -Bioengineered Tissue No -Injectable Lidocaine (%) 1 -Lidocaine (ml) 10 -Bleeding Controlled with Pressure -Treatment Response Procedure Tolerated Well #4 L Lat LE Incision -Time 11:08 -Correct Patient Yes -Correct Side, Site, Position Yes -Correct Procedure Yes -Procedure Performed Yes -Type of Procedure Debridement -Clinical Debridement Subcutaneous -Post Debridement Size (cm) - Length 5.2 -Post Debridement Size (cm) - Width 1.5 -Post Debridement Size (cm) - Depth 0.3 -Total Square Cm 7.80 -Wound/Ulcer Outcome Not Healed -Ulcer Cleansing Rinsed/ Irrigated with Saline -Foul Odor after Cleansing No -Bioengineered Tissue No -Injectable Lidocaine (%) 1 -Lidocaine (ml) 10 -Bleeding Controlled with Pressure -Treatment Response Procedure Tolerated Well #3 LEFT MEDIAL LE (TRAUMA) -Time 11:08 -Correct Patient Yes -Correct Side, Site, Position Yes -Correct Procedure Yes -Procedure Performed Yes -Type of Procedure Debridement -Clinical Debridement Subcutaneous -Post Debridement Size (cm) - Length 0.4 -Post Debridement Size (cm) - Width 0.4 -Post Debridement Size (cm) - Depth 0.1 -Total Square Cm 0.16 -Wound/Ulcer Outcome Not Healed -Ulcer Cleansing Rinsed/ Irrigated with Saline -Foul Odor after Cleansing No -Bioengineered Tissue No -Bleeding Controlled with Pressure -Treatment Response Procedure Tolerated Well [See Physician Procedure note for Specifics] Pain Scale: 0-10 Numeric [Pain] -Is Patient Pain Free? Yes Musculoskeletal: Tenderness - to aforementioned ulcer sites Neurological: Sensory exam intact to light touch and pain Psych/Mental Status: Normal Affect, Appropriate Debridement Note Post-Debridement Measurements/Treatment WC - Nurse 2 - General Ulcer CM Notes Start: 05/10/17 11:22 Freq: Status: Active Protocol: Activity Type Activity Date Activity User E-Sign Co-Sign Detail Recorded Client Recorded Date Recorded By Document 05/10/17 11:47 MW [id number] 05/10/17 12:05 MW Document 05/17/17 11:20 MW [id number] 05/17/17 12:03 MW Document 05/24/17 11:07 MW [id number] 05/24/17 11:32 MW 05/10/17 05/17/17 05/24/17 11:47 11:20 11:07 Wound Center Nurse 2 #6 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 INFERIOR -Time 11:49 11:07 -Correct Patient Yes Yes -Correct Side, Site, Position Yes Yes -Correct Procedure Yes Yes -Procedure Performed Yes Yes -Type of Procedure Debridement Debridement -Clinical Debridement Subcutaneous Subcutaneous -Post Debridement Size (cm) - Length 5.4 5.7 -Post Debridement Size (cm) - Width 4.7 4.5 -Post Debridement Size (cm) - Depth 0.6 0.4 -Total Square Cm 25.38 25.65 -Wound/Ulcer Outcome Not Healed Not Healed -Ulcer Cleansing Rinsed/ Rinsed/ Irrigated with Irrigated with Saline Saline -Foul Odor after Cleansing No No -Bioengineered Tissue No No -Injectable Lidocaine (%) 1 -Lidocaine (ml) 10 -Bleeding Controlled with Pressure Pressure -Treatment Response Procedure Procedure Tolerated Well Tolerated Well #5 Left Lateral Leg superior -Time 11:48 11:29 11:07 -Correct Patient Yes Yes Yes -Correct Side, Site, Position Yes Yes Yes -Correct Procedure Yes Yes Yes -Procedure Performed Yes Yes Yes -Type of Procedure Debridement Debridement Debridement -Clinical Debridement Subcutaneous Subcutaneous Subcutaneous -Post Debridement Size (cm) - Length 11.2 3.7 4.5 -Post Debridement Size (cm) - Width 8.5 5.0 6.0 -Post Debridement Size (cm) - Depth 0.1 0.7 0.4 -Total Square Cm 95.20 18.50 27.00 -Wound/Ulcer Outcome Not Healed Not Healed Not Healed -Ulcer Cleansing Rinsed/ Rinsed/ Rinsed/ Irrigated with Irrigated with Irrigated with Saline Saline Saline -Foul Odor after Cleansing No No No -Bioengineered Tissue No No No -Injectable Lidocaine (%) 1 1 -Lidocaine (ml) 10 10 -Bleeding Controlled with Pressure Pressure Pressure -Treatment Response Procedure Procedure Procedure Tolerated Well Tolerated Well Tolerated Well #4 L Lat LE Incision -Time 12:00 11:38 11:08 -Correct Patient Yes Yes Yes -Correct Side, Site, Position Yes Yes Yes -Correct Procedure Yes Yes Yes -Procedure Performed Yes Yes Yes -Type of Procedure Debridement Debridement Debridement -Clinical Debridement Subcutaneous Subcutaneous Subcutaneous -Post Debridement Size (cm) - Length 8.3 4.7 5.2 -Post Debridement Size (cm) - Width 0.6 1.5 1.5 -Post Debridement Size (cm) - Depth 0.4 0.4 0.3 -Total Square Cm 4.98 7.05 7.80 -Wound/Ulcer Outcome Not Healed Not Healed -Ulcer Cleansing Rinsed/ Rinsed/ Rinsed/ Irrigated with Irrigated with Irrigated with Saline Saline Saline -Foul Odor after Cleansing No No No -Bioengineered Tissue No No No -Injectable Lidocaine (%) 1 -Lidocaine (ml) 10 -Bleeding Controlled with Pressure Pressure Pressure -Treatment Response Procedure Procedure Procedure Tolerated Well Tolerated Well Tolerated Well #3 LEFT MEDIAL LE (TRAUMA) -Time 11:49 11:39 11:08 -Correct Patient Yes Yes Yes -Correct Side, Site, Position Yes Yes Yes -Correct Procedure Yes Yes Yes -Procedure Performed Yes Yes Yes -Type of Procedure Debridement Debridement Debridement -Clinical Debridement Subcutaneous Subcutaneous Subcutaneous -Post Debridement Size (cm) - Length 1.4 1.0 0.4 -Post Debridement Size (cm) - Width 1.1 0.4 0.4 -Post Debridement Size (cm) - Depth 0.2 0.2 0.1 -Total Square Cm 1.54 0.40 0.16 -Wound/Ulcer Outcome Not Healed Not Healed Not Healed -Ulcer Cleansing Rinsed/ Rinsed/ Rinsed/ Irrigated with Irrigated with Irrigated with Saline Saline Saline -Foul Odor after Cleansing No No No -Bioengineered Tissue No No No -Bleeding Controlled with Pressure Pressure Pressure -Treatment Response Procedure Procedure Procedure Tolerated Well Tolerated Well Tolerated Well Pain Scale: 0-10 Numeric Is Patient Pain Free? Yes Yes Yes Wound debrided: Left lateral leg superior Laterality: Left Type of Debridement: Excisional debridement Anesthesia Used: 4% Lidocaine Solution, - - 1% lidocaine plain injection Depth: in the subcutaneous layer Percentage of wound debrided: 100 Instrument Used: 5mm curette Tissue Removed: adherent slough, fibrin, biofilm, necrotic tissue, hyperkeratotic tissue Severity: Fat Layer Exposed Amount of bleeding with debridement: Mild Bleeding Controlled with: Pressure Patient tolerated procedure well - Additional Wound Wound debrided: Left lateral leg inferior Laterality: Left Type of Debridement: Excisional debridement Anesthesia Used: 4% Lidocaine Solution, - - 1% lidocaine plain injection Depth: in the subcutaneous layer Percentage of wound debrided: 100 Instrument Used: 5mm curette Tissue Removed: adherent slough, fibrin, biofilm, necrotic tissue, hyperkeratotic tissue Severity: Fat Layer Exposed Amount of bleeding with debridement: Mild Bleeding Controlled with: Pressure Patient tolerated procedure: Patient tolerated procedure well - Additional Wound Wound debrided: Left proximal anterior leg Laterality: Left Type of Debridement: Excisional debridement Anesthesia Used: 4% Lidocaine Solution, - - 1% lidocaine plain injection Depth: in the subcutaneous layer Percentage of wound debrided: 100 Instrument Used: 5mm curette Tissue Removed: adherent slough, fibrin, biofilm, necrotic tissue, hyperkeratotic tissue Severity: Fat Layer Exposed Amount of bleeding with debridement: Mild Bleeding Controlled with: Pressure Patient tolerated procedure: Patient tolerated procedure well - Additional Wound Wound debrided: Left medial lower leg Laterality: Left Type of Debridement: Excisional debridement Anesthesia Used: 4% Lidocaine Solution Depth: in the subcutaneous layer Percentage of wound debrided: 100 Instrument Used: 5mm curette Tissue Removed: adherent slough, fibrin, biofilm, hyperkeratotic tissue Severity: Fat Layer Exposed Amount of bleeding with debridement: Mild Bleeding Controlled with: Pressure Patient tolerated procedure: Patient tolerated procedure well Assessment/Plan Assessment: Ulcer to left lower leg with fat layer exposed. DM II. Lower extremity edema Plan: Patient was again examined and evaluated today. All of the aforementioned ulcers were debrided subcutaneously as noted in the clinical panel. The ulcers have all improved in appearance and depth since last visit. Once all of the ulcers were debrided and carefully cleansed, the ulcer sites were then dressed with aquacel ag, followed by a dry sterile dressing along with tubigrips followed by JASMINE wraps. The dressing is to be changed in this manner daily. She will do this with the help of family friend, her son, and home health. It was discussed the importance of keeping the compression from the toes all the way up to the knee. She was instrcuted on the importance of keeping pressure off of all of the ulcer sites at all times while seated. I again stressed the importance of compression with the patient's healing. She was instructed to wear the tubigrip and to keep her lower extremities elevated while seated. She is to continue with lasix as prescribed by Dr. Franco. Dr. Brown saw the patient after reviewing her culture results from last visit. He started the patient on a two week course of linezolid and flagyl. She is to take these as directed. I recommended a high-protein diet for this patient to supplement wound healing. Patient was educated on all signs and symptoms of local and systemic infection, and was instructed to go to the ER immediately should she notice any. All other questions were answered to the patient's satisfaction. The patient will follow-up in clinic in 1 week to check on progress, or sooner if needed.
[2017-05-31 11:18] VITALS: BP 145/62; PULSE 90; RESP 18; TEMP 36.2
--- NOTE | 2017-05-31 14:07 | PCM.WC.PN ---
(1) Ulcer of left lower extremity with fat layer exposed Status: Acute Current Visit: No Code(s): L97.922 - Non-pressure chronic ulcer of unspecified part of left lower leg with fat layer exposed (2) PVD (peripheral vascular disease) Status: Chronic Current Visit: No Code(s): I73.9 - Peripheral vascular disease, unspecified (3) Controlled diabetes mellitus Status: Chronic Current Visit: No Code(s): E11.9 - Type 2 diabetes mellitus without complications (4) Edema, lower extremity Status: Chronic Current Visit: No Code(s): R60.0 - Localized edema Type of Wound Date of Service: 05/31/17 Chief Complaint: Left anterior lower leg ulceration that will not heal. History of Wound: This 72 year old female has significant history of diabetes and multiple sclerosis, bilateral traumatic leg wounds, and other comorbidities. She presents to office today after being referred by Dr. Franco. Per his note, the patient had finished up a prescription for keflex and is on rocephin. Patient states that she recently got a new bed. She says since she is short she had to get a stool in order to get onto her bed. She fell on the stool and got an ulcer on the left anterior leg. She says this happed close to two weeks ago and has not seen much of an improvment since. She has been dressing the ulcer site with bacitracin. She denies any purulence, malodor, redness around the ulcer. She also denies any feelings of nausea, vomiting, fever, or chills currently. Progress of Wound: Patient presents for follow up today. Patient says that on April 22 she fell off of her toilet and she had a laceration on her left anterior cabrera. She also had some hematoma formation to the left lateral leg as well as a continued left medial lower leg ulcer. Since the hematomas were debrided and removed, patient says she has been following the dressing changes as instructed as well as trying to keep compression over the area. She and one of her caregivers believe there continues to be slow improvement. She says she has been taking her lasix. Patient says she continues to be on antibiotics per ID. Currently she denies any nausea, vomiting, fever, or chills. - Physical Exam Vital Signs Temp Pulse Resp BP 97.1 F L 90 18 145/62 H 05/31/17 11:18 05/31/17 11:18 05/31/17 11:18 05/31/17 11:18 General: Alert, Oriented x3, Cooperative, No apparent distress Extremities: Capillary Refill Less than 3 Seconds, No Calf Tenderness - negative enma and casanova sign, Diminished Peripheral Pulses - DP and PT pulses nonpalpable due to pitting edema, Edema - Lower extremity pitting edema Skin: Ulcer/ Wound - Ulcer to left medial lower leg is healed today. The 3 ulcers on the proximal lower leg as noted below with fat layer exposed are still noted today, but slightly improved since last visit. The base of all 3 ulcers are mixture of adherent slough, fibrin, biofilm, necrotic tissue, hyperkeratotic tissue. There continues to be no probing to bone and no tracking appreciated. There is no purulence, no malodor, no extending cellulitis, and no significant increase in warmth to the area. Hemosiderin skin changes are appreciated in the lower extremity. Wound Measurements and Assessment WC - Nurse 1 - General Ulcer Measurement Start: 05/10/17 11:22 Freq: Status: Active Protocol: Activity Type Activity Date Activity User E-Sign Co-Sign Detail Recorded Client Recorded Date Recorded By Document 05/31/17 11:18 [id number] 05/31/17 11:26 05/31/17 11:18 Wound Center Nurse 1 [Ulcer Assessment] #6 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 INFERIOR -Combined with other wound No -Current Size (cm) - Length 5.5 -Current Size (cm) - Width 4.3 -Current Size (cm) - Depth 0.2 -Total Square Cm 23.65 -Photo Taken No -Epithelialization None Present -Tunneling No -Undermining/Tunneling No -Circular Undermining No -Classification - Thickness Full Thickness without Exposed Support Structure -Exudate Amt Large (67-100%) -Exudate Type Serosanguineous -Wound Margin Distinct, Outline Attached -Granulation Amt Small (1-33%) -Granulation Quality Red -Slough/Fibrin Yes -Necrosis Amt Large (67-100%) -Necrotic Tissue Type Adherent Slough -Structure Exposed Fascia Fat Layer Exposed -Texture (Char-wound Skin Appearance) Friable Localized Edema Scarring -Moisture (Char-wound Skin Appearance No Abnormality ) -Color (Char-wound Skin Appearance) Erythema Hemosiderin Staining -Temperature (Char-wound Skin No Abnormality Appearance) (Pt Warm) -Tenderness on Palpation (Char-wound No Skin Appearance) -Ulcer Cleansing Rinsed/ Irrigated with Saline -Foul Odor after Cleansing No -Anesthetic Used 5% Lidocaine Gel #5 Left Lateral Leg superior -Combined with other wound No -Current Size (cm) - Length 5.8 -Current Size (cm) - Width 6.0 -Current Size (cm) - Depth 0.2 -Total Square Cm 34.80 -Photo Taken No -Epithelialization None Present -Tunneling No -Undermining/Tunneling No -Circular Undermining No -Classification - Thickness Full Thickness without Exposed Support Structure -Exudate Amt Large (67-100%) -Exudate Type Serosanguineous -Wound Margin Distinct, Outline Attached -Granulation Amt Small (1-33%) -Granulation Quality Red -Slough/Fibrin Yes -Necrosis Amt Large (67-100%) -Necrotic Tissue Type Adherent Slough -Structure Exposed Fascia Fat Layer Exposed -Texture (Char-wound Skin Appearance) Friable Localized Edema Scarring -Moisture (Char-wound Skin Appearance No Abnormality ) -Color (Char-wound Skin Appearance) Erythema Hemosiderin Staining -Temperature (Char-wound Skin No Abnormality Appearance) (Pt Warm) -Tenderness on Palpation (Char-wound No Skin Appearance) -Ulcer Cleansing Rinsed/ Irrigated with Saline -Foul Odor after Cleansing No -Anesthetic Used 5% Lidocaine Gel #4 L Lat LE Incision -Combined with other wound No -Current Size (cm) - Length 4.0 -Current Size (cm) - Width 1.5 -Current Size (cm) - Depth 0.2 -Total Square Cm 6.00 -Photo Taken No -Epithelialization None Present -Tunneling No -Undermining/Tunneling No -Circular Undermining No -Classification - Thickness Full Thickness without Exposed Support Structure -Exudate Amt Large (67-100%) -Exudate Type Serosanguineous -Wound Margin Distinct, Outline Attached -Granulation Amt Small (1-33%) -Granulation Quality Red -Slough/Fibrin Yes -Necrosis Amt Large (67-100%) -Necrotic Tissue Type Adherent Slough -Structure Exposed Fascia Fat Layer Exposed -Texture (Char-wound Skin Appearance) Friable Localized Edema Scarring -Moisture (Char-wound Skin Appearance No Abnormality ) -Color (Char-wound Skin Appearance) Erythema Hemosiderin Staining -Temperature (Char-wound Skin No Abnormality Appearance) (Pt Warm) -Tenderness on Palpation (Char-wound No Skin Appearance) -Ulcer Cleansing Rinsed/ Irrigated with Saline -Foul Odor after Cleansing No -Anesthetic Used 5% Lidocaine Gel #3 LEFT MEDIAL LE (TRAUMA) -Combined with other wound No -Current Size (cm) - Length 0.5 -Current Size (cm) - Width 0.4 -Current Size (cm) - Depth 0.1 -Total Square Cm 0.20 -Photo Taken No -Epithelialization Small 1-33% -Tunneling No -Undermining/Tunneling No -Circular Undermining No -Classification - Thickness Full Thickness without Exposed Support Structure -Exudate Amt Small (1-33%) -Exudate Type Serosanguineous -Wound Margin Distinct, Outline Attached -Granulation Amt Large (67-100%) -Granulation Quality Red -Slough/Fibrin Yes -Necrosis Amt Small (1-33%) -Necrotic Tissue Type Adherent Slough -Structure Exposed Fascia Fat Layer Exposed -Texture (Char-wound Skin Appearance) Localized Edema Scarring -Moisture (Char-wound Skin Appearance Dry/Scaly ) -Color (Char-wound Skin Appearance) Erythema Hemosiderin Staining -Temperature (Char-wound Skin No Abnormality Appearance) (Pt Warm) -Tenderness on Palpation (Char-wound No Skin Appearance) -Ulcer Cleansing Rinsed/ Irrigated with Saline -Foul Odor after Cleansing No -Anesthetic Used 5% Lidocaine Gel [Edema Assessment] -Lower Limb Edema Present Yes -Right Calf (cm) 41.0 -Right Ankle (cm) 29.0 -Right Foot (cm) 29.5 -Left Calf (cm) 38.0 -Left Ankle (cm) 29.5 -Left Foot (cm) 27.5 WC - Nurse 2 - General Ulcer CM Notes Start: 05/10/17 11:22 Freq: Status: Active Protocol: Activity Type Activity Date Activity User E-Sign Co-Sign Detail Recorded Client Recorded Date Recorded By Document 05/31/17 11:35 MW [id number] 05/31/17 12:04 MW 05/31/17 11:35 Wound Center Nurse 2 [Procedure/Treatment] #6 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 INFERIOR -Time 11:35 -Correct Patient Yes -Correct Side, Site, Position Yes -Correct Procedure Yes -Procedure Performed Yes -Type of Procedure Debridement -Clinical Debridement Subcutaneous -Post Debridement Size (cm) - Length 5.8 -Post Debridement Size (cm) - Width 4.3 -Post Debridement Size (cm) - Depth 0.3 -Total Square Cm 24.94 -Wound/Ulcer Outcome Not Healed -Ulcer Cleansing Rinsed/ Irrigated with Saline -Foul Odor after Cleansing No -Bioengineered Tissue No -Injectable Lidocaine (%) 1 -Lidocaine (ml) 5 -Bleeding Controlled with Pressure -Treatment Response Procedure Tolerated Well #5 Left Lateral Leg superior -Time 11:35 -Correct Patient Yes -Correct Side, Site, Position Yes -Correct Procedure Yes -Procedure Performed Yes -Type of Procedure Debridement -Clinical Debridement Subcutaneous -Post Debridement Size (cm) - Length 5.6 -Post Debridement Size (cm) - Width 5.8 -Post Debridement Size (cm) - Depth 0.3 -Total Square Cm 32.48 -Wound/Ulcer Outcome Not Healed -Ulcer Cleansing Rinsed/ Irrigated with Saline -Foul Odor after Cleansing No -Bioengineered Tissue No -Injectable Lidocaine (%) 1 -Lidocaine (ml) 5 -Bleeding Controlled with Pressure -Treatment Response Procedure Tolerated Well #4 L Lat LE Incision -Time 11:35 -Correct Patient Yes -Correct Side, Site, Position Yes -Correct Procedure Yes -Procedure Performed Yes -Type of Procedure Debridement -Clinical Debridement Subcutaneous -Post Debridement Size (cm) - Length 5.0 -Post Debridement Size (cm) - Width 1.6 -Post Debridement Size (cm) - Depth 0.3 -Total Square Cm 8.00 -Wound/Ulcer Outcome Not Healed -Ulcer Cleansing Rinsed/ Irrigated with Saline -Foul Odor after Cleansing No -Bioengineered Tissue No -Bleeding Controlled with Pressure -Treatment Response Procedure Tolerated Well #3 LEFT MEDIAL LE (TRAUMA) -Time 11:35 -Correct Patient Yes -Correct Side, Site, Position Yes -Correct Procedure Yes -Procedure Performed No -Post Debridement Size (cm) - Length 0 -Post Debridement Size (cm) - Width 0 -Post Debridement Size (cm) - Depth 0 -Total Square Cm 0 -Wound/Ulcer Outcome Not Healed -Ulcer Cleansing Rinsed/ Irrigated with Saline -Foul Odor after Cleansing No -Bioengineered Tissue No -Bleeding Controlled with NA [See Physician Procedure note for Specifics] Pain Scale: 0-10 Numeric [Pain] -Is Patient Pain Free? Yes Musculoskeletal: Tenderness - to aforementioned ulcer sites Neurological: Sensory exam intact to light touch and pain Psych/Mental Status: Normal Affect, Appropriate Debridement Note Post-Debridement Measurements/Treatment WC - Nurse 2 - General Ulcer CM Notes Start: 05/10/17 11:22 Freq: Status: Active Protocol: Activity Type Activity Date Activity User E-Sign Co-Sign Detail Recorded Client Recorded Date Recorded By Document 05/10/17 11:47 MW [id number] 05/10/17 12:05 MW Document 05/17/17 11:20 MW [id number] 05/17/17 12:03 MW Document 05/24/17 11:07 MW [id number] 05/24/17 11:32 MW Document 05/31/17 11:35 MW [id number] 05/31/17 12:04 MW 05/10/17 05/17/17 05/24/17 11:47 11:20 11:07 Wound Center Nurse 2 #6 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 INFERIOR -Time 11:49 11:07 -Correct Patient Yes Yes -Correct Side, Site, Position Yes Yes -Correct Procedure Yes Yes -Procedure Performed Yes Yes -Type of Procedure Debridement Debridement -Clinical Debridement Subcutaneous Subcutaneous -Post Debridement Size (cm) - Length 5.4 5.7 -Post Debridement Size (cm) - Width 4.7 4.5 -Post Debridement Size (cm) - Depth 0.6 0.4 -Total Square Cm 25.38 25.65 -Wound/Ulcer Outcome Not Healed Not Healed -Ulcer Cleansing Rinsed/ Rinsed/ Irrigated with Irrigated with Saline Saline -Foul Odor after Cleansing No No -Bioengineered Tissue No No -Injectable Lidocaine (%) 1 -Lidocaine (ml) 10 -Bleeding Controlled with Pressure Pressure -Treatment Response Procedure Procedure Tolerated Well Tolerated Well #5 Left Lateral Leg superior -Time 11:48 11:29 11:07 -Correct Patient Yes Yes Yes -Correct Side, Site, Position Yes Yes Yes -Correct Procedure Yes Yes Yes -Procedure Performed Yes Yes Yes -Type of Procedure Debridement Debridement Debridement -Clinical Debridement Subcutaneous Subcutaneous Subcutaneous -Post Debridement Size (cm) - Length 11.2 3.7 4.5 -Post Debridement Size (cm) - Width 8.5 5.0 6.0 -Post Debridement Size (cm) - Depth 0.1 0.7 0.4 -Total Square Cm 95.20 18.50 27.00 -Wound/Ulcer Outcome Not Healed Not Healed Not Healed -Ulcer Cleansing Rinsed/ Rinsed/ Rinsed/ Irrigated with Irrigated with Irrigated with Saline Saline Saline -Foul Odor after Cleansing No No No -Bioengineered Tissue No No No -Injectable Lidocaine (%) 1 1 -Lidocaine (ml) 10 10 -Bleeding Controlled with Pressure Pressure Pressure -Treatment Response Procedure Procedure Procedure Tolerated Well Tolerated Well Tolerated Well #4 L Lat LE Incision -Time 12:00 11:38 11:08 -Correct Patient Yes Yes Yes -Correct Side, Site, Position Yes Yes Yes -Correct Procedure Yes Yes Yes -Procedure Performed Yes Yes Yes -Type of Procedure Debridement Debridement Debridement -Clinical Debridement Subcutaneous Subcutaneous Subcutaneous -Post Debridement Size (cm) - Length 8.3 4.7 5.2 -Post Debridement Size (cm) - Width 0.6 1.5 1.5 -Post Debridement Size (cm) - Depth 0.4 0.4 0.3 -Total Square Cm 4.98 7.05 7.80 -Wound/Ulcer Outcome Not Healed Not Healed -Ulcer Cleansing Rinsed/ Rinsed/ Rinsed/ Irrigated with Irrigated with Irrigated with Saline Saline Saline -Foul Odor after Cleansing No No No -Bioengineered Tissue No No No -Injectable Lidocaine (%) 1 -Lidocaine (ml) 10 -Bleeding Controlled with Pressure Pressure Pressure -Treatment Response Procedure Procedure Procedure Tolerated Well Tolerated Well Tolerated Well #3 LEFT MEDIAL LE (TRAUMA) -Time 11:49 11:39 11:08 -Correct Patient Yes Yes Yes -Correct Side, Site, Position Yes Yes Yes -Correct Procedure Yes Yes Yes -Procedure Performed Yes Yes Yes -Type of Procedure Debridement Debridement Debridement -Clinical Debridement Subcutaneous Subcutaneous Subcutaneous -Post Debridement Size (cm) - Length 1.4 1.0 0.4 -Post Debridement Size (cm) - Width 1.1 0.4 0.4 -Post Debridement Size (cm) - Depth 0.2 0.2 0.1 -Total Square Cm 1.54 0.40 0.16 -Wound/Ulcer Outcome Not Healed Not Healed Not Healed -Ulcer Cleansing Rinsed/ Rinsed/ Rinsed/ Irrigated with Irrigated with Irrigated with Saline Saline Saline -Foul Odor after Cleansing No No No -Bioengineered Tissue No No No -Bleeding Controlled with Pressure Pressure Pressure -Treatment Response Procedure Procedure Procedure Tolerated Well Tolerated Well Tolerated Well Pain Scale: 0-10 Numeric Is Patient Pain Free? Yes Yes Yes 05/31/17 11:35 Wound Center Nurse 2 #6 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 INFERIOR -Time 11:35 -Correct Patient Yes -Correct Side, Site, Position Yes -Correct Procedure Yes -Procedure Performed Yes -Type of Procedure Debridement -Clinical Debridement Subcutaneous -Post Debridement Size (cm) - Length 5.8 -Post Debridement Size (cm) - Width 4.3 -Post Debridement Size (cm) - Depth 0.3 -Total Square Cm 24.94 -Wound/Ulcer Outcome Not Healed -Ulcer Cleansing Rinsed/ Irrigated with Saline -Foul Odor after Cleansing No -Bioengineered Tissue No -Injectable Lidocaine (%) 1 -Lidocaine (ml) 5 -Bleeding Controlled with Pressure -Treatment Response Procedure Tolerated Well #5 Left Lateral Leg superior -Time 11:35 -Correct Patient Yes -Correct Side, Site, Position Yes -Correct Procedure Yes -Procedure Performed Yes -Type of Procedure Debridement -Clinical Debridement Subcutaneous -Post Debridement Size (cm) - Length 5.6 -Post Debridement Size (cm) - Width 5.8 -Post Debridement Size (cm) - Depth 0.3 -Total Square Cm 32.48 -Wound/Ulcer Outcome Not Healed -Ulcer Cleansing Rinsed/ Irrigated with Saline -Foul Odor after Cleansing No -Bioengineered Tissue No -Injectable Lidocaine (%) 1 -Lidocaine (ml) 5 -Bleeding Controlled with Pressure -Treatment Response Procedure Tolerated Well #4 L Lat LE Incision -Time 11:35 -Correct Patient Yes -Correct Side, Site, Position Yes -Correct Procedure Yes -Procedure Performed Yes -Type of Procedure Debridement -Clinical Debridement Subcutaneous -Post Debridement Size (cm) - Length 5.0 -Post Debridement Size (cm) - Width 1.6 -Post Debridement Size (cm) - Depth 0.3 -Total Square Cm 8.00 -Wound/Ulcer Outcome Not Healed -Ulcer Cleansing Rinsed/ Irrigated with Saline -Foul Odor after Cleansing No -Bioengineered Tissue No -Injectable Lidocaine (%) -Lidocaine (ml) -Bleeding Controlled with Pressure -Treatment Response Procedure Tolerated Well #3 LEFT MEDIAL LE (TRAUMA) -Time 11:35 -Correct Patient Yes -Correct Side, Site, Position Yes -Correct Procedure Yes -Procedure Performed No -Type of Procedure -Clinical Debridement -Post Debridement Size (cm) - Length 0 -Post Debridement Size (cm) - Width 0 -Post Debridement Size (cm) - Depth 0 -Total Square Cm 0 -Wound/Ulcer Outcome Not Healed -Ulcer Cleansing Rinsed/ Irrigated with Saline -Foul Odor after Cleansing No -Bioengineered Tissue No -Bleeding Controlled with NA -Treatment Response Pain Scale: 0-10 Numeric Is Patient Pain Free? Yes Wound debrided: Left lateral leg superior Laterality: Left Type of Debridement: Excisional debridement Anesthesia Used: 4% Lidocaine Solution, - - 1% lidocaine plain injection Depth: in the subcutaneous layer Percentage of wound debrided: 100 Instrument Used: 5mm curette Tissue Removed: Adherent slough, fibrin, biofilm, necrotic tissue, hyperkeratotic tissue Severity: Fat Layer Exposed Amount of bleeding with debridement: Mild Bleeding Controlled with: Pressure Patient tolerated procedure well - Additional Wound Wound debrided: Left lateral leg inferior Laterality: Left Type of Debridement: Excisional debridement Anesthesia Used: 4% Lidocaine Solution, - - 1% lidocaine plain injection Depth: in the subcutaneous layer Percentage of wound debrided: 100 Instrument Used: 5mm curette Tissue Removed: Adherent slough, fibrin, biofilm, necrotic tissue, hyperkeratotic tissue Severity: Fat Layer Exposed Amount of bleeding with debridement: Mild Bleeding Controlled with: Pressure Patient tolerated procedure: Patient tolerated procedure well - Additional Wound Wound debrided: Left proximal anterior leg Laterality: Left Type of Debridement: Excisional debridement Anesthesia Used: 4% Lidocaine Solution, - - 1% lidocaine plain injection Depth: in the subcutaneous layer Percentage of wound debrided: 100 Instrument Used: 5mm curette Tissue Removed: Adherent slough, fibrin, biofilm, necrotic tissue, hyperkeratotic tissue Severity: Fat Layer Exposed Amount of bleeding with debridement: Mild Bleeding Controlled with: Pressure Patient tolerated procedure: Patient tolerated procedure well Assessment/Plan Assessment: Ulcer to left lower leg with fat layer exposed. DM II. Lower extremity edema Plan: Patient was again examined and evaluated today. All of the aforementioned ulcers were debrided subcutaneously as noted in the clinical panel. The ulcers have all improved in appearance and depth since last visit. Once all of the ulcers were debrided and carefully cleansed, the ulcer sites were then dressed with aquacel ag, followed by a dry sterile dressing along with tubigrips followed by JASMINE wraps. The dressing is to be changed in this manner daily. She will do this with the help of family friend, her son, and home health. It was again discussed the importance of keeping the compression from the toes all the way up to the knee, as she says some of the home health did not have her jasmine wraps all the way down to the toes. She was instrcuted on the importance of keeping pressure off of all of the ulcer sites at all times while seated. I again stressed the importance of compression with the patient's healing. She was instructed to wear the tubigrip and to keep her lower extremities elevated while seated. She is to continue with lasix as prescribed by Dr. Franco. Dr. Brown saw the patient after reviewing her culture results from last visit. He started the patient on a two week course of linezolid and flagyl. She is to take these as directed. I recommended a high-protein diet for this patient to supplement wound healing. Patient was educated on all signs and symptoms of local and systemic infection, and was instructed to go to the ER immediately should she notice any. All other questions were answered to the patient's satisfaction. The patient will follow-up in clinic in 1 week to check on progress, or sooner if needed.
== END 2017-06-04 23:59 ==
LOC: WC 10:30
PROVIDERS: Family Provider Family Medicine Geriatric Medicine; PCP Family Medicine Geriatric Medicine; Visit Provider Podiatrist
DX: E11.622 Type 2 diabetes mellitus with other skin ulcer (principal); S81.812A Laceration without foreign body, left lower leg, initial encounter; E11.51 Type 2 diabetes mellitus with diabetic peripheral angiopathy without gangrene; G35 Multiple sclerosis; T81.33XA Disruption of traumatic injury wound repair, initial encounter; R60.0 Localized edema; W17.89XA Other fall from one level to another, initial encounter; Y93.89 Activity, other specified; I25.10 Atherosclerotic heart disease of native coronary artery without angina pectoris; I48.0 Paroxysmal atrial fibrillation; E78.5 Hyperlipidemia, unspecified; B37.9 Candidiasis, unspecified; I10 Essential (primary) hypertension; L97.822 Non-pressure chronic ulcer of other part of left lower leg with fat layer exposed
CPT/HCPCS: 87070; 87075; 87077; 87186; 87205; 87640

== ENCOUNTER → 2017-06-07 13:42 | Outpatient (CLI) | payer MEDICARE, SELFPAY ==
[2017-06-07 16:07] LABS: Albumin, Serum 3.2 g/dL (3.2-5.0); BUN 28 mg/dL (7-18); BUN/Creat Ratio 21.7 RATIO (10-20); Calcium,Total 9.3 mg/dL (8.5-10.1); Chloride 107 mmol/L (98-107); Creatinine, Serum 1.29 mg/dL (0.55-1.02); EST Glomerular Filtration Rate 43 mL/min (>60); Est Glom Filt Rate - Afr Amer 52 mL/min (>60); Glucose 93 mg/dL (74-106); Potassium 4.2 mmol/L (3.5-5.1); Sodium Level 145 mmol/L (136-145)
== END ==
LOC: LAB.FUTURE 13:43
PROVIDERS: Family Provider Family Medicine Geriatric Medicine; PCP Family Medicine Geriatric Medicine; Visit Provider Internal Medicine Nephrology
DX: E11.621 Type 2 diabetes mellitus with foot ulcer (principal); E11.22 Type 2 diabetes mellitus with diabetic chronic kidney disease; N17.9 Acute kidney failure, unspecified; L97.822 Non-pressure chronic ulcer of other part of left lower leg with fat layer exposed; E11.51 Type 2 diabetes mellitus with diabetic peripheral angiopathy without gangrene; G35 Multiple sclerosis; R60.0 Localized edema
CPT/HCPCS: 11042; 11045; 36415; 80069

== ENCOUNTER → 2017-06-15 13:05 | Outpatient (CLI) | payer MEDICARE, SELFPAY ==
--- NOTE | 2017-06-15 13:20 | RAD_ITS ---
STUDY: X-RAY - ABDOMEN/PELVIS REASON FOR EXAM: Female, 72 years old. Constipation TECHNIQUE: AP supine and upright views of the abdomen and pelvis. COMPARISON: None. FINDINGS: Normal visualized lung bases. There is an unremarkable bowel gas pattern. There is no demonstrated free abdominal air. The visualized liver, spleen and kidneys are grossly normal in size and morphology. Normal soft tissue structures. There are diffuse degenerative changes of the visualized lumbar spine. RAD/Abd Inc Decub and/or Erect IMPRESSION: No evidence for obstruction. Electronically Signed: Nikolas Savage MD at 23:58 EDT , Service support ,
== END ==
LOC: RAD 13:07
PROVIDERS: Family Provider Family Medicine Geriatric Medicine; PCP Family Medicine Geriatric Medicine; Visit Provider Family Medicine Geriatric Medicine
DX: K59.00 Constipation, unspecified (principal)
CPT/HCPCS: 74019

== ENCOUNTER → 2017-06-18 12:33 | Outpatient (CLI) | payer MEDICARE, SELFPAY ==
--- NOTE | 2017-06-18 13:00 | ECHOCS_ITS ---
Reason For Study: CAD/ASHD Procedure This was a 2D Doppler, Color Flow transthoracic echocardiogram. Patient unable to lay on side. Exam performed with patient flat on her back. The study was technically difficult. Contrast injection was performed. Exam performed in department. Left Ventricle Normal LV size. Left ventricular systolic function is normal. The estimated ejection fraction is 65 %. Unable to assess diastolic dysfunction due to arrhythmia. No regional wall motion abnormalities noted. Right Ventricle Borderline enlarged right ventricle. Normal systolic function. Atria The left atrium is mildly enlarged. Normal right atrium. No doppler evidence for ASD. Mitral Valve There is moderate mitral annular calcification. Extension of the mitral annular calcification onto the posterior mitral valve leaflet. Mild (1+) mitral valve insufficiency. Tricuspid Valve Normal tricuspid valve. Trivial tricuspid valve insufficiency. Right ventricular systolic pressure estimated to be 39 mmHg. Aortic Valve Trisinus/trileaflet aortic valve. Mild focal aortic valve calcification. Trivial aortic valve insufficiency. Pulmonic Valve The pulmonic valve is not well visualized. Trivial pulmonic valve insufficiency. Great Vessels Normal sized aortic root. Pericardium/Pleural No pericardial effusion. Medication 22 gauge I.V. with prn adaptor inserted into left arm. Diluted definity 5ml given slow IV push to enhance endocardial definition. MMode/2D Measurements & Calculations LVIDd: 4.4 cm IVSd: 1.1 cm Ao root diam: 3.3 cm LVIDs: 2.9 cm LVPWd: 1.2 cm FS: 33.6 % LAV(MOD-bp): 62.5 ml LA A4 area: 21.5 cm2 LAV(MOD-bp) Indexed: 32.2 ml/m2 LAV(MOD-sp2): 64.8 ml LAV(MOD-sp4): 59.0 ml Time Measurements MV dec time: 0.21 sec Doppler Measurements & Calculations MV E max landon: 101.5 cm/sec Lat Peak E' Landon: 7.9 cm/sec Med Peak E' Landon: 7.3 cm/sec E/E' lat: 12.9 E/E' med: 13.9 Ao V2 max: 174.2 cm/sec LV V1 max: 130.9 cm/sec PA V2 max: 108.3 cm/sec Ao max P.2 mmHg LV V1 max P.9 mmHg TR max landon: 300.7 cm/sec TR max P.2 mmHg Interpretation Summary The study was technically difficult. Contrast injection was performed. Left ventricular systolic function is normal. The estimated ejection fraction is 65 %. Borderline enlarged right ventricle. The left atrium is mildly enlarged. There is moderate mitral annular calcification. Extension of the mitral annular calcification onto the posterior mitral valve leaflet. Mild (1+) mitral valve insufficiency. Trivial tricuspid valve insufficiency. Mild focal aortic valve calcification. Trivial aortic valve insufficiency. Trivial pulmonic valve insufficiency. Right ventricular systolic pressure estimated to be 39 mmHg. Unable to assess diastolic dysfunction due to arrhythmia. Ordering Physician: Uriel Luna Referring Physician: REBECCA SEO CHI Performed By: Keshia Forrest RDCS
== END ==
LOC: CVS 12:33
PROVIDERS: Family Provider Family Medicine Geriatric Medicine; PCP Family Medicine Geriatric Medicine; Visit Provider Internal Medicine Cardiovascular Disease
DX: I25.10 Atherosclerotic heart disease of native coronary artery without angina pectoris (principal)
CPT/HCPCS: 93306; Q9957; A4216; C8929

== ENCOUNTER 2017-07-05 11:15 | Outpatient (RCR) | payer MEDICARE, SELFPAY ==
[2017-06-05 00:50] VITALS: PULSE 90; RESP 18; TEMP 36.2
[2017-06-07 11:05] VITALS: BP 133/90; PULSE 75; RESP 18; TEMP 36.1
--- NOTE | 2017-06-07 14:37 | PN.PCM_ITS ---
(1) Ulcer of left lower extremity with fat layer exposed Status: Acute Current Visit: No Code(s): L97.922 - Non-pressure chronic ulcer of unspecified part of left lower leg with fat layer exposed (2) PVD (peripheral vascular disease) Status: Chronic Current Visit: No Code(s): I73.9 - Peripheral vascular disease, unspecified (3) Controlled diabetes mellitus Status: Chronic Current Visit: No Code(s): E11.9 - Type 2 diabetes mellitus without complications (4) Edema, lower extremity Status: Chronic Current Visit: No Code(s): R60.0 - Localized edema Type of Wound Date of Service: 06/07/17 Chief Complaint: Left anterior lower leg ulceration that will not heal. History of Wound: This 72 year old female has significant history of diabetes and multiple sclerosis, bilateral traumatic leg wounds, and other comorbidities. She presents to office today after being referred by Dr. Franco. Per his note, the patient had finished up a prescription for keflex and is on rocephin. Patient states that she recently got a new bed. She says since she is short she had to get a stool in order to get onto her bed. She fell on the stool and got an ulcer on the left anterior leg. She says this happed close to two weeks ago and has not seen much of an improvment since. She has been dressing the ulcer site with bacitracin. She denies any purulence, malodor, redness around the ulcer. She also denies any feelings of nausea, vomiting, fever, or chills currently. Progress of Wound: Patient presents for follow up today. She has noticed a slight improvement and slightly less pain since last week. Patient says that on April 22 she fell off of her toilet and she had a laceration on her left anterior cabrera. She also had some hematoma formation to the left lateral leg as well as a continued left medial lower leg ulcer. Since the hematomas were debrided and removed, patient says she has been following the dressing changes as instructed as well as trying to keep compression over the area. She and one of her caregivers believe there continues to be slow improvement. She says she has been taking her lasix. Patient says she continues to be on antibiotics per ID. Currently she denies any nausea, vomiting, fever, or chills. - Physical Exam Vital Signs Temp Pulse Resp BP 96.9 F L 75 18 133/90 H 06/07/17 11:05 06/07/17 11:05 06/07/17 11:05 06/07/17 11:05 General: Alert, Oriented x3, Cooperative, No apparent distress Extremities: Capillary Refill Less than 3 Seconds, No Calf Tenderness - negative enma and casanova sign, Diminished Peripheral Pulses - DP and PT pulses nonpalpable due to pitting edema, Edema - Lower extremity pitting edema Skin: Ulcer/ Wound - The ulcers with fat layer exposed on the proximal lower leg are still noted with measurements noted below. There again appears to be a slight improvement since last week. The base of the ulcers is a mixture of adherent slough, fibrin, biofilm, necrotic tissue, hyperkeratotic tissue. There continues to be no probing to bone and no tracking. There is no purulence , no malodor, no extending cellulitis, and no significant increase in warmth to the area. Hemosiderin skin changes are appreciated in lower extremity. 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 -Combined with other wound No -Current Size (cm) - Length 6.5 -Current Size (cm) - Width 4.6 -Current Size (cm) - Depth 0.2 -Total Square Cm 29.90 -Photo Taken No -Epithelialization Small 1-33% -Tunneling No -Undermining/Tunneling No -Circular Undermining No -Classification - Thickness Full Thickness without Exposed Support Structure -Exudate Amt Large (67-100%) -Exudate Type Serosanguineous -Wound Margin Distinct, Outline Attached -Granulation Amt Medium (34-66%) -Granulation Quality Red -Slough/Fibrin Yes -Necrosis Amt Medium (34-66%) -Necrotic Tissue Type Adherent Slough -Structure Exposed Fascia Fat Layer Exposed -Texture (Char-wound Skin Appearance) Friable Localized Edema -Moisture (Char-wound Skin Appearance No Abnormality ) -Color (Char-wound Skin Appearance) Erythema Hemosiderin Staining -Temperature (Char-wound Skin No Abnormality Appearance) (Pt Warm) -Tenderness on Palpation (Char-wound Yes Skin Appearance) -Ulcer Cleansing Rinsed/ Irrigated with Saline -Foul Odor after Cleansing No -Anesthetic Used 5% Lidocaine Gel #5 Left Lateral Leg superior -Combined with other wound No -Current Size (cm) - Length 5.5 -Current Size (cm) - Width 6.5 -Current Size (cm) - Depth 0.2 -Total Square Cm 35.75 -Photo Taken No -Epithelialization Small 1-33% -Tunneling No -Undermining/Tunneling No -Circular Undermining No -Classification - Thickness Full Thickness without Exposed Support Structure -Exudate Amt Large (67-100%) -Exudate Type Serosanguineous -Wound Margin Distinct, Outline Attached -Granulation Amt Medium (34-66%) -Granulation Quality Red -Slough/Fibrin Yes -Necrosis Amt Medium (34-66%) -Necrotic Tissue Type Adherent Slough -Structure Exposed Fascia Fat Layer Exposed -Texture (Char-wound Skin Appearance) Friable Localized Edema -Moisture (Char-wound Skin Appearance No Abnormality ) -Color (Char-wound Skin Appearance) Erythema Hemosiderin Staining -Temperature (Char-wound Skin No Abnormality Appearance) (Pt Warm) -Tenderness on Palpation (Char-wound Yes Skin Appearance) -Ulcer Cleansing Rinsed/ Irrigated with Saline -Foul Odor after Cleansing No -Anesthetic Used 5% Lidocaine Gel #4 L Lat LE Incision -Combined with other wound No -Current Size (cm) - Length 3.5 -Current Size (cm) - Width 1.5 -Current Size (cm) - Depth 0.2 -Total Square Cm 5.25 -Photo Taken No -Epithelialization Small 1-33% -Tunneling No -Undermining/Tunneling No -Circular Undermining No -Classification - Thickness Full Thickness without Exposed Support Structure -Exudate Amt Medium (34-66%) -Exudate Type Serosanguineous -Wound Margin Distinct, Outline Attached -Granulation Amt Medium (34-66%) -Granulation Quality Red -Slough/Fibrin Yes -Necrosis Amt Medium (34-66%) -Necrotic Tissue Type Adherent Slough -Structure Exposed Fascia Fat Layer Exposed -Texture (Char-wound Skin Appearance) Friable Scarring -Moisture (Char-wound Skin Appearance No Abnormality ) -Color (Char-wound Skin Appearance) Erythema Hemosiderin Staining -Temperature (Char-wound Skin No Abnormality Appearance) (Pt Warm) -Tenderness on Palpation (Char-wound Yes Skin Appearance) -Ulcer Cleansing Rinsed/ Irrigated with Saline -Foul Odor after Cleansing No -Anesthetic Used 5% Lidocaine Gel [Edema Assessment] -Lower Limb Edema Present Yes -Left Calf (cm) 39.0 -Left Ankle (cm) 29.5 -Left Foot (cm) 26.5 WC - Nurse 2 - General Ulcer CM Notes Start: 06/07/17 11:05 Freq: Status: Active Protocol: Activity Type Activity Date Activity User E-Sign Co-Sign Detail Recorded Client Recorded Date Recorded By Document 06/07/17 11:24 MW [id number] 06/07/17 11:43 MW 06/07/17 11:24 Wound Center Nurse 2 [Procedure/Treatment] #6 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 INFERIOR CLUSTER -Time 11:27 -Correct Patient Yes -Correct Side, Site, Position Yes -Correct Procedure Yes -Procedure Performed Yes -Type of Procedure Debridement -Clinical Debridement Subcutaneous -Post Debridement Size (cm) - Length 6.3 -Post Debridement Size (cm) - Width 7.8 -Post Debridement Size (cm) - Depth 0.3 -Total Square Cm 49.14 -Wound/Ulcer Outcome Not Healed -Ulcer Cleansing Rinsed/ Irrigated with Saline -Foul Odor after Cleansing No -Bioengineered Tissue No -Injectable Lidocaine (%) 1 -Lidocaine (ml) 5 -Bleeding Controlled with Pressure -Treatment Response Procedure Tolerated Well #5 Left Lateral Leg superior -Time 11:27 -Correct Patient Yes -Correct Side, Site, Position Yes -Correct Procedure Yes -Procedure Performed Yes -Type of Procedure Debridement -Clinical Debridement Subcutaneous -Post Debridement Size (cm) - Length 5.5 -Post Debridement Size (cm) - Width 4.3 -Post Debridement Size (cm) - Depth 0.3 -Total Square Cm 23.65 -Wound/Ulcer Outcome Not Healed -Ulcer Cleansing Rinsed/ Irrigated with Saline -Foul Odor after Cleansing No -Bioengineered Tissue No -Injectable Lidocaine (%) 1 -Lidocaine (ml) 5 -Bleeding Controlled with Pressure -Treatment Response Procedure Tolerated Well [See Physician Procedure note for Specifics] Pain Scale: 0-10 Numeric [Pain] -Is Patient Pain Free? Yes Musculoskeletal: Tenderness - to aforementioned ulcer sites Neurological: Sensory exam intact to light touch and pain Psych/Mental Status: Normal Affect, Appropriate Debridement Note Post-Debridement Measurements/Treatment WC - Nurse 2 - General Ulcer CM Notes Start: 06/07/17 11:05 Freq: Status: Active Protocol: Activity Type Activity Date Activity User E-Sign Co-Sign Detail Recorded Client Recorded Date Recorded By Document 06/07/17 11:24 MW [id number] 06/07/17 11:43 MW 06/07/17 11:24 Wound Center Nurse 2 #6 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 INFERIOR CLUSTER -Time 11:27 -Correct Patient Yes -Correct Side, Site, Position Yes -Correct Procedure Yes -Procedure Performed Yes -Type of Procedure Debridement -Clinical Debridement Subcutaneous -Post Debridement Size (cm) - Length 6.3 -Post Debridement Size (cm) - Width 7.8 -Post Debridement Size (cm) - Depth 0.3 -Total Square Cm 49.14 -Wound/Ulcer Outcome Not Healed -Ulcer Cleansing Rinsed/ Irrigated with Saline -Foul Odor after Cleansing No -Bioengineered Tissue No -Injectable Lidocaine (%) 1 -Lidocaine (ml) 5 -Bleeding Controlled with Pressure -Treatment Response Procedure Tolerated Well #5 Left Lateral Leg superior -Time 11:27 -Correct Patient Yes -Correct Side, Site, Position Yes -Correct Procedure Yes -Procedure Performed Yes -Type of Procedure Debridement -Clinical Debridement Subcutaneous -Post Debridement Size (cm) - Length 5.5 -Post Debridement Size (cm) - Width 4.3 -Post Debridement Size (cm) - Depth 0.3 -Total Square Cm 23.65 -Wound/Ulcer Outcome Not Healed -Ulcer Cleansing Rinsed/ Irrigated with Saline -Foul Odor after Cleansing No -Bioengineered Tissue No -Injectable Lidocaine (%) 1 -Lidocaine (ml) 5 -Bleeding Controlled with Pressure -Treatment Response Procedure Tolerated Well Pain Scale: 0-10 Numeric Is Patient Pain Free? Yes Wound debrided: Left lateral leg superior cluster Laterality: Left Type of Debridement: Excisional debridement Anesthesia Used: 4% Lidocaine Solution, - - 1% lidocaine plain injection Depth: in the subcutaneous layer Percentage of wound debrided: 100 Instrument Used: 5mm curette Tissue Removed: Adherent slough, fibrin, biofilm, necrotic tissue, hyperkeratotic tissue Severity: Fat Layer Exposed Amount of bleeding with debridement: Mild Bleeding Controlled with: Pressure Patient tolerated procedure well - Additional Wound Wound debrided: Left lateral leg inferior Laterality: Left Type of Debridement: Excisional debridement Anesthesia Used: 4% Lidocaine Solution, - - 1% lidocaine plain injection Depth: in the subcutaneous layer Percentage of wound debrided: 100 Instrument Used: 5mm curette Tissue Removed: Adherent slough, fibrin, biofilm, necrotic tissue, hyperkeratotic tissue Severity: Fat Layer Exposed Amount of bleeding with debridement: Mild Bleeding Controlled with: Pressure Patient tolerated procedure: Patient tolerated procedure well Assessment/Plan Assessment: Ulcer to left lower leg with fat layer exposed. DM II. Lower extremity edema Plan: Patient was again examined and evaluated today. The two previous superior ulcers area now together and described as cluster. All of the aforementioned ulcers were debrided subcutaneously as noted in the clinical panel. The ulcers have all improved slightly in appearance and depth since last visit. Once all of the ulcers were debrided and carefully cleansed, the ulcer sites were then dressed with aquacel ag, followed by a dry sterile dressing along with tubigrips followed by JASMINE wraps. The dressing is to be changed in this manner daily. She will do this with the help of family friend, her son, and home health. It was again discussed the importance of keeping the compression from the toes all the way up to the knee, as she says some of the home health did not have her jasmine wraps all the way down to the toes. She was instrcuted on the importance of keeping pressure off of all of the ulcer sites at all times while seated. I again stressed the importance of compression with the patient's healing. She was instructed to wear the tubigrip and to keep her lower extremities elevated while seated. She is to continue with lasix as prescribed by Dr. Franco. Dr. Brown saw the patient after reviewing her culture results from last visit. He started the patient on a two week course of linezolid and flagyl. She is to take these as directed. I recommended a high-protein diet for this patient to supplement wound healing. We will check with insurance to see if apligraf or puraply will be covered for this patient. Patient was educated on all signs and symptoms of local and systemic infection, and was instructed to go to the ER immediately should she notice any. All other questions were answered to the patient's satisfaction. The patient will follow-up in clinic in 1 week to check on progress, or sooner if needed.
[2017-06-14 11:20] VITALS: BP 132/80; PULSE 75; RESP 18; TEMP 37
--- NOTE | 2017-06-14 12:51 | PCM.WC.PN ---
(1) Ulcer of left lower extremity with fat layer exposed Status: Acute Current Visit: No Code(s): L97.922 - Non-pressure chronic ulcer of unspecified part of left lower leg with fat layer exposed (2) PVD (peripheral vascular disease) Status: Chronic Current Visit: No Code(s): I73.9 - Peripheral vascular disease, unspecified (3) Controlled diabetes mellitus Status: Chronic Current Visit: No Code(s): E11.9 - Type 2 diabetes mellitus without complications (4) Edema, lower extremity Status: Chronic Current Visit: No Code(s): R60.0 - Localized edema Type of Wound Date of Service: 06/14/17 Chief Complaint: Left anterior lower leg ulceration that will not heal. History of Wound: This 72 year old female has significant history of diabetes and multiple sclerosis, bilateral traumatic leg wounds, and other comorbidities. She presents to office today after being referred by Dr. Franco. Per his note, the patient had finished up a prescription for keflex and is on rocephin. Patient states that she recently got a new bed. She says since she is short she had to get a stool in order to get onto her bed. She fell on the stool and got an ulcer on the left anterior leg. She says this happed close to two weeks ago and has not seen much of an improvment since. She has been dressing the ulcer site with bacitracin. She denies any purulence, malodor, redness around the ulcer. She also denies any feelings of nausea, vomiting, fever, or chills currently. Progress of Wound: Patient presents for follow up today. She has noticed a slight improvement and slightly less pain since last week again. Patient says that on April 22 she fell off of her toilet and she had a laceration on her left anterior cabrera. She also had some hematoma formation to the left lateral leg as well as a continued left medial lower leg ulcer. Since the hematomas were debrided and removed, patient says she has been following the dressing changes as instructed as well as trying to keep compression over the area. She and one of her caregivers believe there continues to be slow improvement. She says she has been taking her lasix. Patient says she continues to be on antibiotics per ID. Currently she denies any nausea, vomiting, fever, or chills. - Physical Exam Vital Signs Temp Pulse Resp BP 98.6 F 75 18 132/80 H 06/14/17 11:20 06/14/17 11:20 06/14/17 11:20 06/14/17 11:20 General: Alert, Oriented x3, Cooperative, No apparent distress Extremities: Capillary Refill Less than 3 Seconds, No Calf Tenderness - Negative Sunita and Abraham sign, Diminished Peripheral Pulses - DP and PT pulses nonpalpable due to pitting edema, Edema - Lower extremity pitting edema Skin: Ulcer/ Wound - There continues to be ulcers with fat layer exposed on the proximal lower leg with measurements of the ulcer sites noted below. There is no other improvement in both areas compared with last week. The base of the ulcers continues to be a mixture of adherent slough, fibrin, biofilm, necrotic tissue, hyperkeratotic tissue. There continues to be no probing to bone and no tracking. No purulence, no malodor, no extending cellulitis, and no increase in warmth to the area was appreciated again. 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 -Combined with other wound No -Current Size (cm) - Length 5.4 -Current Size (cm) - Width 4.2 -Current Size (cm) - Depth 0.2 -Total Square Cm 22.68 -Tunneling No -Undermining/Tunneling No -Circular Undermining No -Classification - Thickness Full Thickness without Exposed Support Structure -Exudate Amt Medium (34-66%) -Exudate Type Serosanguineous -Wound Margin Thickened & Rolled Under -Granulation Amt Medium (34-66%) -Granulation Quality [place] -Slough/Fibrin Yes -Necrosis Amt Medium (34-66%) -Necrotic Tissue Type Adherent Slough -Structure Exposed N/A -Texture (Char-wound Skin Appearance) Assessed -Moisture (Char-wound Skin Appearance Assessed ) -Color (Char-wound Skin Appearance) Hemosiderin Staining -Temperature (Char-wound Skin No Abnormality Appearance) (Pt Warm) -Tenderness on Palpation (Char-wound No Skin Appearance) -Ulcer Cleansing Rinsed/ Irrigated with Saline -Foul Odor after Cleansing No -Anesthetic Used 5% Lidocaine Gel #5 Left Lateral Leg superior -Combined with other wound No -Current Size (cm) - Length 3.7 -Current Size (cm) - Width 6.7 -Current Size (cm) - Depth 0.2 -Total Square Cm 24.79 -Tunneling No -Undermining/Tunneling No -Circular Undermining No -Classification - Thickness Full Thickness without Exposed Support Structure -Exudate Amt Medium (34-66%) -Exudate Type Serosanguineous -Wound Margin Thickened & Rolled Under -Granulation Amt Medium (34-66%) -Granulation Quality [place] -Slough/Fibrin Yes -Necrosis Amt Small (1-33%) -Necrotic Tissue Type Adherent Slough -Structure Exposed N/A -Texture (Char-wound Skin Appearance) Assessed -Moisture (Char-wound Skin Appearance Assessed ) -Color (Char-wound Skin Appearance) Assessed Hemosiderin Staining -Temperature (Char-wound Skin No Abnormality Appearance) (Pt Warm) -Tenderness on Palpation (Char-wound No Skin Appearance) -Ulcer Cleansing Rinsed/ Irrigated with Saline -Foul Odor after Cleansing No -Anesthetic Used 5% Lidocaine Gel [Edema Assessment] -Lower Limb Edema Present Yes -Left Calf (cm) 43.5 -Left Ankle (cm) 28.4 WC - Nurse 2 - General Ulcer CM Notes Start: 06/07/17 11:05 Freq: Status: Active Protocol: Activity Type Activity Date Activity User E-Sign Co-Sign Detail Recorded Client Recorded Date Recorded By Document 06/14/17 11:57 MW [id number] 06/14/17 12:06 MW 06/14/17 11:57 Wound Center Nurse 2 [Procedure/Treatment] #6 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 INFERIOR CLUSTER -Time 12:00 -Correct Patient Yes -Correct Side, Site, Position Yes -Correct Procedure Yes -Procedure Performed Yes -Type of Procedure Debridement -Clinical Debridement Subcutaneous -Post Debridement Size (cm) - Length 5.6 -Post Debridement Size (cm) - Width 4.5 -Post Debridement Size (cm) - Depth 0.3 -Total Square Cm 25.20 -Wound/Ulcer Outcome Not Healed -Ulcer Cleansing Rinsed/ Irrigated with Saline -Foul Odor after Cleansing No -Bioengineered Tissue No -Bleeding Controlled with Pressure -Treatment Response Procedure Tolerated Well #5 Left Lateral Leg superior -Time 12:00 -Correct Patient Yes -Correct Side, Site, Position Yes -Correct Procedure Yes -Procedure Performed Yes -Type of Procedure Debridement -Clinical Debridement Subcutaneous -Post Debridement Size (cm) - Length 6.5 -Post Debridement Size (cm) - Width 7.0 -Post Debridement Size (cm) - Depth 0.3 -Total Square Cm 45.50 -Wound/Ulcer Outcome Not Healed -Ulcer Cleansing Rinsed/ Irrigated with Saline -Foul Odor after Cleansing No -Bioengineered Tissue No -Bleeding Controlled with Pressure -Treatment Response Procedure Tolerated Well [See Physician Procedure note for Specifics] Pain Scale: 0-10 Numeric [Pain] -Is Patient Pain Free? 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 INFERIOR CLUSTER -Time 11:27 12:00 -Correct Patient Yes Yes -Correct Side, Site, Position Yes Yes -Correct Procedure Yes Yes -Procedure Performed Yes Yes -Type of Procedure Debridement Debridement -Clinical Debridement Subcutaneous Subcutaneous -Post Debridement Size (cm) - Length 6.3 5.6 -Post Debridement Size (cm) - Width 7.8 4.5 -Post Debridement Size (cm) - Depth 0.3 0.3 -Total Square Cm 49.14 25.20 -Wound/Ulcer Outcome Not Healed Not Healed -Ulcer Cleansing Rinsed/ Rinsed/ Irrigated with Irrigated with Saline Saline -Foul Odor after Cleansing No No -Bioengineered Tissue No No -Injectable Lidocaine (%) 1 -Lidocaine (ml) 5 -Bleeding Controlled with Pressure Pressure -Treatment Response Procedure Procedure Tolerated Well Tolerated Well #5 Left Lateral Leg superior -Time 11:27 12:00 -Correct Patient Yes Yes -Correct Side, Site, Position Yes Yes -Correct Procedure Yes Yes -Procedure Performed Yes Yes -Type of Procedure Debridement Debridement -Clinical Debridement Subcutaneous Subcutaneous -Post Debridement Size (cm) - Length 5.5 6.5 -Post Debridement Size (cm) - Width 4.3 7.0 -Post Debridement Size (cm) - Depth 0.3 0.3 -Total Square Cm 23.65 45.50 -Wound/Ulcer Outcome Not Healed Not Healed -Ulcer Cleansing Rinsed/ Rinsed/ Irrigated with Irrigated with Saline Saline -Foul Odor after Cleansing No No -Bioengineered Tissue No No -Injectable Lidocaine (%) 1 -Lidocaine (ml) 5 -Bleeding Controlled with Pressure Pressure -Treatment Response Procedure Procedure Tolerated Well Tolerated Well Pain Scale: 0-10 Numeric Is Patient Pain Free? Yes Yes Wound debrided: Left lateral leg superior cluster Laterality: Left Type of Debridement: Excisional debridement Anesthesia Used: 4% Lidocaine Solution, - - 1% lidocaine plain injection Depth: in the subcutaneous layer Percentage of wound debrided: 100 Instrument Used: 5mm curette Tissue Removed: Adherent slough, fibrin, biofilm, necrotic tissue, hyperkeratotic tissue Severity: Fat Layer Exposed Amount of bleeding with debridement: Mild Bleeding Controlled with: Pressure Patient tolerated procedure well - Additional Wound Wound debrided: Left lateral leg inferior Laterality: Left Type of Debridement: Excisional debridement Anesthesia Used: 4% Lidocaine Solution, - - 1% lidocaine plain injection Depth: in the subcutaneous layer Percentage of wound debrided: 100 Instrument Used: 5mm curette Tissue Removed: Adherent slough, fibrin, biofilm, necrotic tissue, hyperkeratotic tissue Severity: Fat Layer Exposed Amount of bleeding with debridement: Mild Bleeding Controlled with: Pressure Patient tolerated procedure: Patient tolerated procedure well Assessment/Plan Assessment: Ulcer to left lower leg with fat layer exposed. DM II. Lower extremity edema Plan: Patient was again examined and evaluated today. The aforementioned ulcers were debrided subcutaneously as noted in the clinical panel again this week. The ulcers have all improved slightly in appearance and depth since last visit again today. Once all of the ulcers were debrided and carefully cleansed, the ulcer sites were then dressed with aquacel ag, followed by a dry sterile dressing along with tubigrips followed by JASMINE wraps. The dressing is to be changed in this manner daily. She will do this with the help of family friend, her son, and home health. It was again discussed the importance of keeping the compression from the toes all the way up to the knee, as she says some of the home health did not have her jasmine wraps all the way down to the toes. She was instrcuted on the importance of keeping pressure off of all of the ulcer sites at all times while seated. I again stressed the importance of compression with the patient's healing. She was instructed to wear the tubigrip and to keep her lower extremities elevated while seated. She is to continue with lasix as prescribed by Dr. Franco. She completed course of antibiotics prescribed by Dr. Brown. I recommended a high-protein diet for this patient to supplement wound healing. We will check with insurance to see if apligraf or puraply will be covered for this patient. Patient was educated on all signs and symptoms of local and systemic infection, and was instructed to go to the ER immediately should she notice any. All other questions were answered to the patient's satisfaction. The patient will follow-up in clinic in 1 week to check on progress, or sooner if needed.
[2017-06-21 11:07] VITALS: BP 165/85; PULSE 67; RESP 18; TEMP 37
--- NOTE | 2017-06-21 12:39 | PCM.WC.PN ---
(1) Ulcer of left lower extremity with fat layer exposed Status: Acute Current Visit: No Code(s): L97.922 - Non-pressure chronic ulcer of unspecified part of left lower leg with fat layer exposed (2) PVD (peripheral vascular disease) Status: Chronic Current Visit: No Code(s): I73.9 - Peripheral vascular disease, unspecified (3) Controlled diabetes mellitus Status: Chronic Current Visit: No Code(s): E11.9 - Type 2 diabetes mellitus without complications (4) Edema, lower extremity Status: Chronic Current Visit: No Code(s): R60.0 - Localized edema Type of Wound Date of Service: 06/21/17 Chief Complaint: Left anterior lower leg ulceration that will not heal. History of Wound: This 72 year old female has significant history of diabetes and multiple sclerosis, bilateral traumatic leg wounds, and other comorbidities. She presents to office today after being referred by Dr. Franco. Per his note, the patient had finished up a prescription for keflex and is on rocephin. Patient states that she recently got a new bed. She says since she is short she had to get a stool in order to get onto her bed. She fell on the stool and got an ulcer on the left anterior leg. She says this happed close to two weeks ago and has not seen much of an improvment since. She has been dressing the ulcer site with bacitracin. She denies any purulence, malodor, redness around the ulcer. She also denies any feelings of nausea, vomiting, fever, or chills currently. Progress of Wound: Patient presents for follow up today. She has noticed a slight improvement and slightly less pain since last week again with her proximal left lower leg ulcers. Patient says that on April 22 she fell off of her toilet and she had a laceration on her left anterior cabrera. She also had some hematoma formation to the left lateral leg as well as a continued left medial lower leg ulcer. Since the hematomas were debrided and removed, patient says she has been following the dressing changes as instructed as well as trying to keep compression over the area. She and one of her caregivers believe there continues to be slow improvement. She says she has been taking her lasix. Patient says she continues to be on antibiotics per ID. Patient also states that on Sunday she dropped a bottle of shampoo on the top of her left foot and it has been causing her some tenderness and pain as well. There is no open areas on the top of her foot, but she says it is a little bruised and swollen. Currently she denies any nausea, vomiting, fever, or chills. - Physical Exam Vital Signs Temp Pulse Resp BP 98.6 F 67 18 165/85 H 06/21/17 11:07 06/21/17 11:07 06/21/17 11:07 06/21/17 11:07 General: Alert, Oriented x3, Cooperative, No apparent distress Extremities: Capillary Refill Less than 3 Seconds, No Calf Tenderness, Diminished Peripheral Pulses - Negative Sunita and Abraham sign DP and PT pulses nonpalpable due to pitting edema, Edema - Lower extremity pitting edema Skin: Ulcer/ Wound - Ulcers with fat layer exposed noted to the proximal left lower leg. Regimens are noted below. There continues to be slow improvement to the ulcer sites appreciated. The base continues to be a mixture of adherent slough, fibrin, biofilm and some slight hyperkeratotic tissue. Again, there is no probing to bone, no tracking, no purulence, no malodor, no extending cellulitis, no increase in warmth around the ulcer site. 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 -Combined with other wound No -Current Size (cm) - Length 5.5 -Current Size (cm) - Width 4.5 -Current Size (cm) - Depth 0.1 -Total Square Cm 24.75 -Date of Last Picture (Recall this 06/21/17 field) -Photo Taken Yes -Epithelialization Small 1-33% -Tunneling No -Undermining/Tunneling No -Circular Undermining No -Exudate Amt Large (67-100%) -Exudate Type Serosanguineous -Wound Margin Distinct, Outline Attached -Granulation Amt Small (1-33%) -Granulation Quality [place] -Slough/Fibrin Yes -Necrosis Amt Large (67-100%) -Necrotic Tissue Type Adherent Slough -Structure Exposed N/A -Texture (Char-wound Skin Appearance) Scarring -Moisture (Char-wound Skin Appearance Assessed ) -Color (Char-wound Skin Appearance) Hemosiderin Staining -Temperature (Char-wound Skin No Abnormality Appearance) (Pt Warm) -Tenderness on Palpation (Char-wound Yes Skin Appearance) -Ulcer Cleansing Rinsed/ Irrigated with Saline -Foul Odor after Cleansing No -Anesthetic Used 4% Lidocaine Solution #5 Left Lateral Leg superior -Combined with other wound No -Current Size (cm) - Length 3.2 -Current Size (cm) - Width 5.5 -Current Size (cm) - Depth 0.1 -Total Square Cm 17.60 -Date of Last Picture (Recall this 06/21/17 field) -Photo Taken Yes -Epithelialization Small 1-33% -Tunneling No -Undermining/Tunneling No -Circular Undermining No -Exudate Amt Large (67-100%) -Exudate Type Serosanguineous -Wound Margin Distinct, Outline Attached -Granulation Amt Small (1-33%) -Granulation Quality [place] -Slough/Fibrin Yes -Necrosis Amt Large (67-100%) -Necrotic Tissue Type Adherent Slough -Structure Exposed None/Limited to Skin Breakdown -Texture (Char-wound Skin Appearance) Scarring -Moisture (Char-wound Skin Appearance Assessed ) -Color (Char-wound Skin Appearance) Hemosiderin Staining -Temperature (Char-wound Skin No Abnormality Appearance) (Pt Warm) -Tenderness on Palpation (Char-wound Yes Skin Appearance) -Ulcer Cleansing Rinsed/ Irrigated with Saline -Foul Odor after Cleansing No -Anesthetic Used 4% Lidocaine Solution [Edema Assessment] -Lower Limb Edema Present Yes -Left Calf (cm) 37.6 -Left Ankle (cm) 28.3 WC - Nurse 2 - General Ulcer CM Notes Start: 06/07/17 11:05 Freq: Status: Active Protocol: Activity Type Activity Date Activity User E-Sign Co-Sign Detail Recorded Client Recorded Date Recorded By Document 06/21/17 12:02 KANDY [id number] 06/21/17 12:20 KANDY 06/21/17 12:02 Wound Center Nurse 2 [Procedure/Treatment] #6 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 INFERIOR CLUSTER -Time 12:03 -Correct Patient Yes -Correct Side, Site, Position Yes -Correct Procedure Yes -Procedure Performed Yes -Type of Procedure Debridement -Clinical Debridement Subcutaneous -Post Debridement Size (cm) - Length 5.2 -Post Debridement Size (cm) - Width 4.3 -Post Debridement Size (cm) - Depth 0.3 -Total Square Cm 22.36 -Wound/Ulcer Outcome Not Healed -Ulcer Cleansing Rinsed/ Irrigated with Saline -Foul Odor after Cleansing No -Bioengineered Tissue No -Injectable Lidocaine (%) 1 -Lidocaine (ml) 10 -Bleeding Controlled with NA -Treatment Response Procedure Tolerated Well #5 Left Lateral Leg superior -Time 12:03 -Correct Patient Yes -Correct Side, Site, Position Yes -Correct Procedure Yes -Procedure Performed Yes -Type of Procedure Debridement -Clinical Debridement Subcutaneous -Post Debridement Size (cm) - Length 5.8 -Post Debridement Size (cm) - Width 7.3 -Post Debridement Size (cm) - Depth 0.3 -Total Square Cm 42.34 -Wound/Ulcer Outcome Not Healed -Ulcer Cleansing Not Cleansed -Foul Odor after Cleansing No -Bioengineered Tissue No -Injectable Lidocaine (%) 1 -Lidocaine (ml) 10 -Bleeding Controlled with Pressure -Treatment Response Procedure Tolerated Well [See Physician Procedure note for Specifics] Pain Scale: 0-10 Numeric [Pain] -Is Patient Pain Free? Yes Musculoskeletal: Tenderness - With manipulation of ulcer sites. Patient also has some tenderness appreciated to the dorsal left foot. 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 INFERIOR CLUSTER -Time 11:27 12:00 12:03 -Correct Patient Yes Yes Yes -Correct Side, Site, Position Yes Yes Yes -Correct Procedure Yes Yes Yes -Procedure Performed Yes Yes Yes -Type of Procedure Debridement Debridement Debridement -Clinical Debridement Subcutaneous Subcutaneous Subcutaneous -Post Debridement Size (cm) - Length 6.3 5.6 5.2 -Post Debridement Size (cm) - Width 7.8 4.5 4.3 -Post Debridement Size (cm) - Depth 0.3 0.3 0.3 -Total Square Cm 49.14 25.20 22.36 -Wound/Ulcer Outcome Not Healed Not Healed Not Healed -Ulcer Cleansing Rinsed/ Rinsed/ Rinsed/ Irrigated with Irrigated with Irrigated with Saline Saline Saline -Foul Odor after Cleansing No No No -Bioengineered Tissue No No No -Injectable Lidocaine (%) 1 1 -Lidocaine (ml) 5 10 -Bleeding Controlled with Pressure Pressure NA -Treatment Response Procedure Procedure Procedure Tolerated Well Tolerated Well Tolerated Well #5 Left Lateral Leg superior -Time 11: 12:00 12:03 -Correct Patient Yes Yes Yes -Correct Side, Site, Position Yes Yes Yes -Correct Procedure Yes Yes Yes -Procedure Performed Yes Yes Yes -Type of Procedure Debridement Debridement Debridement -Clinical Debridement Subcutaneous Subcutaneous Subcutaneous -Post Debridement Size (cm) - Length 5.5 6.5 5.8 -Post Debridement Size (cm) - Width 4.3 7.0 7.3 -Post Debridement Size (cm) - Depth 0.3 0.3 0.3 -Total Square Cm 23.65 45.50 42.34 -Wound/Ulcer Outcome Not Healed Not Healed Not Healed -Ulcer Cleansing Rinsed/ Rinsed/ Not Cleansed Irrigated with Irrigated with Saline Saline -Foul Odor after Cleansing No No No -Bioengineered Tissue No No No -Injectable Lidocaine (%) 1 1 -Lidocaine (ml) 5 10 -Bleeding Controlled with Pressure Pressure Pressure -Treatment Response Procedure Procedure Procedure Tolerated Well Tolerated Well Tolerated Well Pain Scale: 0-10 Numeric Is Patient Pain Free? Yes Yes Yes Wound debrided: Left lateral leg superior cluster Laterality: Left Type of Debridement: Excisional debridement Anesthesia Used: 4% Lidocaine Solution, - - 1% lidocaine plain injection Depth: in the subcutaneous layer Percentage of wound debrided: 100 Instrument Used: 5mm curette Tissue Removed: Adherent slough, fibrin, biofilm, hyperkeratotic tissue Severity: Fat Layer Exposed Amount of bleeding with debridement: Mild Bleeding Controlled with: Pressure Patient tolerated procedure well - Additional Wound Wound debrided: Left lateral leg inferior Laterality: Left Type of Debridement: Excisional debridement Anesthesia Used: 4% Lidocaine Solution, - - 1% lidocaine plain injection Depth: in the subcutaneous layer Percentage of wound debrided: 100 Instrument Used: 5mm curette Tissue Removed: Adherent slough, fibrin, biofilm, hyperkeratotic tissue Severity: Fat Layer Exposed Amount of bleeding with debridement: Mild Bleeding Controlled with: Pressure Patient tolerated procedure: Patient tolerated procedure well Assessment/Plan Assessment: Ulcer to left lower leg with fat layer exposed. DM II. Lower extremity edema Plan: Patient was again examined and evaluated today. The aforementioned ulcers were again debrided subcutaneously as noted in the clinical panel. The ulcers have all improved slightly in appearance and depth since last visit again today. Once all of the ulcers were debrided and carefully cleansed, the ulcer sites were then dressed with aquacel ag, followed by a dry sterile dressing along with tubigrips followed by JASMINE wraps. The dressing is to be changed in this manner daily. She will do this with the help of family friend, her son, and home health. It was again discussed the importance of keeping the compression from the toes all the way up to the knee, as she says some of the home health did not have her jasmine wraps all the way down to the toes. She has not been fully compliant with this in the past. She was instrcuted on the importance of keeping pressure off of all of the ulcer sites at all times while seated. I again stressed the importance of compression with the patient's healing. She was instructed to wear the tubigrip and to keep her lower extremities elevated while seated. She is to continue with lasix as prescribed by Dr. Franco. She completed course of antibiotics prescribed by Dr. Brown. I recommended a high-protein diet for this patient to supplement wound healing. We will check with insurance to see if apligraf or puraply will be covered for this patient. So far we have not heard back. Will continue to check on this. Patient was also instructed to continue to watch the left foot and if the bruising gets much worse or the pain increases, she was instructed to follow up with the ER. Patient was educated on all signs and symptoms of local and systemic infection, and was instructed to go to the ER immediately should she notice any. All other questions were answered to the patient's satisfaction. The patient will follow-up in clinic in 1 week to check on progress, or sooner if needed.
[2017-06-28 11:27] VITALS: BP 127/67; PULSE 80; RESP 18; TEMP 36.3
--- NOTE | 2017-06-28 15:06 | PCM.WC.PN ---
(1) Ulcer of left lower extremity with fat layer exposed Status: Acute Current Visit: No Code(s): L97.922 - Non-pressure chronic ulcer of unspecified part of left lower leg with fat layer exposed (2) PVD (peripheral vascular disease) Status: Chronic Current Visit: No Code(s): I73.9 - Peripheral vascular disease, unspecified (3) Controlled diabetes mellitus Status: Chronic Current Visit: No Code(s): E11.9 - Type 2 diabetes mellitus without complications (4) Edema, lower extremity Status: Chronic Current Visit: No Code(s): R60.0 - Localized edema Type of Wound Date of Service: 06/28/17 Chief Complaint: Left anterior lower leg ulceration that will not heal. History of Wound: This 72 year old female has significant history of diabetes and multiple sclerosis, bilateral traumatic leg wounds, and other comorbidities. She presents to office today after being referred by Dr. Franco. Per his note, the patient had finished up a prescription for keflex and is on rocephin. Patient states that she recently got a new bed. She says since she is short she had to get a stool in order to get onto her bed. She fell on the stool and got an ulcer on the left anterior leg. She says this happed close to two weeks ago and has not seen much of an improvment since. She has been dressing the ulcer site with bacitracin. She denies any purulence, malodor, redness around the ulcer. She also denies any feelings of nausea, vomiting, fever, or chills currently. Progress of Wound: Patient presents for follow up today. She has noticed a slight improvement and slightly less pain since last week again with her proximal left lower leg ulcers. Patient says that on April 22 she fell off of her toilet and she had a laceration on her left anterior cabrera. She also had some hematoma formation to the left lateral leg as well as a continued left medial lower leg ulcer. Since the hematomas were debrided and removed, patient says she has been following the dressing changes as instructed as well as trying to keep compression over the area. She and one of her caregivers believe there continues to be slow improvement again this week. She says she has been taking her lasix. Patient says she continues to be on antibiotics per ID. Patient also states that the top of her left foot is improving. Currently she denies any nausea, vomiting, fever, or chills. - Physical Exam Vital Signs Temp Pulse Resp BP 97.3 F L 80 18 127/67 H 06/28/17 11:27 06/28/17 11:27 06/28/17 11:06/28/17 11:27 General: Alert, Oriented x3, Cooperative, No apparent distress Extremities: Capillary Refill Less than 3 Seconds, No Calf Tenderness - Negative Sunita and Abraham sign, Diminished Peripheral Pulses - DP and PT pulses nonpalpable due to pitting edema, Edema - Lower extremity pitting edema Skin: Ulcer/ Wound - Ulcers with fat layer exposed noted to the proximal left lower leg. Measurements are noted below. The ulcer sites continue to look slightly improved again this week. The ulcer bases are noted to be a mixture of adherent slough, fibrin, biofilm, granular tissue, and hyperkeratotic tissue. There continues to be no probing to bone, no tracking, no undermining, no purulence, no malodor, no extending cellulitis, and no increase in warmth appreciated to this area. Wound Measurements and Assessment WC - Nurse 1 - General Ulcer Measurement Start: 06/07/17 11:05 Freq: Status: Active Protocol: Activity Type Activity Date Activity User E-Sign Co-Sign Detail Recorded Client Recorded Date Recorded By Document 06/28/17 11:27 [id number] 06/28/17 11:37 DL 06/28/17 11:27 Wound Center Nurse 1 [Ulcer Assessment] #6 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 INFERIOR CLUSTER -Current Size (cm) - Length 5.1 -Current Size (cm) - Width 4.3 -Current Size (cm) - Depth 0.2 -Total Square Cm 21.93 -Photo Taken No -Exudate Amt Medium (34-66%) -Exudate Type Serosanguineous -Wound Margin Distinct, Outline Attached -Granulation Amt Small (1-33%) -Granulation Quality [place] -Necrosis Amt Large (67-100%) -Necrotic Tissue Type Adherent Slough -Structure Exposed N/A -Texture (Char-wound Skin Appearance) Scarring -Moisture (Char-wound Skin Appearance No Abnormality ) -Color (Char-wound Skin Appearance) Hemosiderin Staining -Tenderness on Palpation (Char-wound No Skin Appearance) -Ulcer Cleansing Wound Cleanser -Foul Odor after Cleansing No -Anesthetic Used 4% Lidocaine Solution #5 Left Lateral Leg superior -Current Size (cm) - Length 6.6 -Current Size (cm) - Width 0.6 -Current Size (cm) - Depth 0.2 -Total Square Cm 3.96 -Photo Taken No -Exudate Amt Large (67-100%) -Exudate Type Serosanguineous -Wound Margin Distinct, Outline Attached -Granulation Amt Small (1-33%) -Granulation Quality [place] -Necrosis Amt Large (67-100%) -Necrotic Tissue Type Adherent Slough -Structure Exposed N/A -Texture (Char-wound Skin Appearance) Scarring -Moisture (Char-wound Skin Appearance No Abnormality ) -Color (Char-wound Skin Appearance) No Abnormality -Temperature (Char-wound Skin No Abnormality Appearance) (Pt Warm) -Ulcer Cleansing Wound Cleanser -Foul Odor after Cleansing No -Anesthetic Used 4% Lidocaine Solution [Edema Assessment] -Right Calf (cm) 35.5 -Right Ankle (cm) 27.5 -Left Calf (cm) 44.4 -Left Ankle (cm) 31 WC - Nurse 2 - General Ulcer CM Notes Start: 06/07/17 11:05 Freq: Status: Active Protocol: Activity Type Activity Date Activity User E-Sign Co-Sign Detail Recorded Client Recorded Date Recorded By Document 06/28/17 12:04 KANDY [id number] 06/28/17 12:19 KANDY 06/28/17 12:04 Wound Center Nurse 2 [Procedure/Treatment] #6 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 INFERIOR CLUSTER -Time 12:10 -Correct Patient Yes -Correct Side, Site, Position Yes -Correct Procedure Yes -Procedure Performed Yes -Type of Procedure Debridement -Clinical Debridement Subcutaneous -Post Debridement Size (cm) - Length 5.0 -Post Debridement Size (cm) - Width 4.3 -Post Debridement Size (cm) - Depth 0.2 -Total Square Cm 21.50 -Wound/Ulcer Outcome Not Healed -Ulcer Cleansing Rinsed/ Irrigated with Saline -Foul Odor after Cleansing No -Bioengineered Tissue No -Injectable Lidocaine (%) 1 -Lidocaine (ml) 10 -Bleeding Controlled with Pressure #5 Left Lateral Leg superior -Time 12:11 -Correct Patient Yes -Correct Side, Site, Position Yes -Correct Procedure Yes -Procedure Performed Yes -Type of Procedure Debridement -Clinical Debridement Subcutaneous -Post Debridement Size (cm) - Length 6.5 -Post Debridement Size (cm) - Width 6.6 -Post Debridement Size (cm) - Depth 0.3 -Total Square Cm 42.90 -Wound/Ulcer Outcome Not Healed -Ulcer Cleansing Rinsed/ Irrigated with Saline -Foul Odor after Cleansing No -Bioengineered Tissue No -Injectable Lidocaine (%) 1 -Lidocaine (ml) 10 -Bleeding Controlled with Pressure -Treatment Response Procedure Tolerated Well [See Physician Procedure note for Specifics] Musculoskeletal: Tenderness - Slight tenderness with manipulation of ulcer sites. Neurological: Sensory exam intact to light touch and pain Psych/Mental Status: Normal Affect, Appropriate Debridement Note Post-Debridement Measurements/Treatment WC - Nurse 2 - General Ulcer CM Notes Start: 06/07/17 11:05 Freq: Status: Active Protocol: Activity Type Activity Date Activity User E-Sign Co-Sign Detail Recorded Client Recorded Date Recorded By Document 06/07/17 11:24 MW [id number] 06/07/17 11:43 MW Document 06/14/17 11:57 MW [id number] 06/14/17 12:06 MW Document 06/21/17 12:02 JS [id number] 06/21/17 12:20 JS Document 06/28/17 12:04 JS [id number] 06/28/17 12:19 JS 06/07/17 06/14/17 06/21/17 11:24 11:57 12:02 Wound Center Nurse 2 #6 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 INFERIOR CLUSTER -Time 11:27 12:00 12:03 -Correct Patient Yes Yes Yes -Correct Side, Site, Position Yes Yes Yes -Correct Procedure Yes Yes Yes -Procedure Performed Yes Yes Yes -Type of Procedure Debridement Debridement Debridement -Clinical Debridement Subcutaneous Subcutaneous Subcutaneous -Post Debridement Size (cm) - Length 6.3 5.6 5.2 -Post Debridement Size (cm) - Width 7.8 4.5 4.3 -Post Debridement Size (cm) - Depth 0.3 0.3 0.3 -Total Square Cm 49.14 25.20 22.36 -Wound/Ulcer Outcome Not Healed Not Healed Not Healed -Ulcer Cleansing Rinsed/ Rinsed/ Rinsed/ Irrigated with Irrigated with Irrigated with Saline Saline Saline -Foul Odor after Cleansing No No No -Bioengineered Tissue No No No -Injectable Lidocaine (%) 1 1 -Lidocaine (ml) 5 10 -Bleeding Controlled with Pressure Pressure NA -Treatment Response Procedure Procedure Procedure Tolerated Well Tolerated Well Tolerated Well #5 Left Lateral Leg superior -Time 11:27 12:00 12:03 -Correct Patient Yes Yes Yes -Correct Side, Site, Position Yes Yes Yes -Correct Procedure Yes Yes Yes -Procedure Performed Yes Yes Yes -Type of Procedure Debridement Debridement Debridement -Clinical Debridement Subcutaneous Subcutaneous Subcutaneous -Post Debridement Size (cm) - Length 5.5 6.5 5.8 -Post Debridement Size (cm) - Width 4.3 7.0 7.3 -Post Debridement Size (cm) - Depth 0.3 0.3 0.3 -Total Square Cm 23.65 45.50 42.34 -Wound/Ulcer Outcome Not Healed Not Healed Not Healed -Ulcer Cleansing Rinsed/ Rinsed/ Not Cleansed Irrigated with Irrigated with Saline Saline -Foul Odor after Cleansing No No No -Bioengineered Tissue No No No -Injectable Lidocaine (%) 1 1 -Lidocaine (ml) 5 10 -Bleeding Controlled with Pressure Pressure Pressure -Treatment Response Procedure Procedure Procedure Tolerated Well Tolerated Well Tolerated Well Pain Scale: 0-10 Numeric Is Patient Pain Free? Yes Yes Yes 06/28/17 12:04 Wound Center Nurse 2 #6 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 INFERIOR CLUSTER -Time 12:10 -Correct Patient Yes -Correct Side, Site, Position Yes -Correct Procedure Yes -Procedure Performed Yes -Type of Procedure Debridement -Clinical Debridement Subcutaneous -Post Debridement Size (cm) - Length 5.0 -Post Debridement Size (cm) - Width 4.3 -Post Debridement Size (cm) - Depth 0.2 -Total Square Cm 21.50 -Wound/Ulcer Outcome Not Healed -Ulcer Cleansing Rinsed/ Irrigated with Saline -Foul Odor after Cleansing No -Bioengineered Tissue No -Injectable Lidocaine (%) 1 -Lidocaine (ml) 10 -Bleeding Controlled with Pressure -Treatment Response #5 Left Lateral Leg superior -Time 12:11 -Correct Patient Yes -Correct Side, Site, Position Yes -Correct Procedure Yes -Procedure Performed Yes -Type of Procedure Debridement -Clinical Debridement Subcutaneous -Post Debridement Size (cm) - Length 6.5 -Post Debridement Size (cm) - Width 6.6 -Post Debridement Size (cm) - Depth 0.3 -Total Square Cm 42.90 -Wound/Ulcer Outcome Not Healed -Ulcer Cleansing Rinsed/ Irrigated with Saline -Foul Odor after Cleansing No -Bioengineered Tissue No -Injectable Lidocaine (%) 1 -Lidocaine (ml) 10 -Bleeding Controlled with Pressure -Treatment Response Procedure Tolerated Well Pain Scale: 0-10 Numeric Is Patient Pain Free? Wound debrided: Left lateral leg superior cluster Laterality: Left Type of Debridement: Excisional debridement Anesthesia Used: 4% Lidocaine Solution, - - 1% lidocaine plain injection Depth: in the subcutaneous layer Percentage of wound debrided: 100 Instrument Used: 5mm curette Tissue Removed: Adherent slough, fibrin, biofilm, hyperkeratotic tissue Severity: Fat Layer Exposed Amount of bleeding with debridement: Mild Bleeding Controlled with: Pressure Patient tolerated procedure well - Additional Wound Wound debrided: Left lateral leg inferior Laterality: Left Type of Debridement: Excisional debridement Anesthesia Used: 4% Lidocaine Solution, - - 1% lidocaine plain injection Depth: in the subcutaneous layer Percentage of wound debrided: 100 Instrument Used: 5mm curette Tissue Removed: Adherent slough, fibrin, biofilm, hyperkeratotic tissue Severity: Fat Layer Exposed Amount of bleeding with debridement: Mild Bleeding Controlled with: Pressure Patient tolerated procedure: Patient tolerated procedure well Assessment/Plan Assessment: Ulcer to left lower leg with fat layer exposed. DM II. Lower extremity edema Plan: Patient was again examined and evaluated today. The aforementioned ulcers were again debrided subcutaneously as noted in the clinical panel. The ulcers have all improved slightly in appearance and depth since last visit again today. Once all of the ulcers were debrided and carefully cleansed, the ulcer sites were then dressed with aquacel ag, followed by a dry sterile dressing along with tubigrips followed by JASMINE wraps. The dressing is to be changed in this manner daily. She will do this with the help of family friend, her son, and home health. It was again discussed the importance of keeping the compression from the toes all the way up to the knee, as she says some of the home health did not have her jasmine wraps all the way down to the toes. She has not been fully compliant with this in the past. She was instrcuted on the importance of keeping pressure off of all of the ulcer sites at all times while seated. I again stressed the importance of compression with the patient's healing. She was instructed to wear the tubigrip and to keep her lower extremities elevated while seated. She is to continue with lasix as prescribed by Dr. Franco. She completed course of antibiotics prescribed by Dr. Brown. I recommended a high-protein diet for this patient to supplement wound healing. Patient's insurance denied apligraf and puraply. Patient was educated on all signs and symptoms of local and systemic infection, and was instructed to go to the ER immediately should she notice any. All other questions were answered to the patient's satisfaction. The patient will follow-up in clinic in 1 week to check on progress, or sooner if needed.
[2017-07-05 12:02] VITALS: BP 103/69; PULSE 67; RESP 18; TEMP 36
--- NOTE | 2017-07-05 14:44 | PCM.WC.PN ---
(1) Ulcer of left lower extremity with fat layer exposed Status: Acute Current Visit: No Code(s): L97.922 - Non-pressure chronic ulcer of unspecified part of left lower leg with fat layer exposed (2) PVD (peripheral vascular disease) Status: Chronic Current Visit: No Code(s): I73.9 - Peripheral vascular disease, unspecified (3) Controlled diabetes mellitus Status: Chronic Current Visit: No Code(s): E11.9 - Type 2 diabetes mellitus without complications (4) Edema, lower extremity Status: Chronic Current Visit: No Code(s): R60.0 - Localized edema Type of Wound Date of Service: 07/05/17 Chief Complaint: Left anterior lower leg ulceration that will not heal. History of Wound: This 72 year old female has significant history of diabetes and multiple sclerosis, bilateral traumatic leg wounds, and other comorbidities. She presents to office today after being referred by Dr. Franco. Per his note, the patient had finished up a prescription for keflex and is on rocephin. Patient states that she recently got a new bed. She says since she is short she had to get a stool in order to get onto her bed. She fell on the stool and got an ulcer on the left anterior leg. She says this happed close to two weeks ago and has not seen much of an improvment since. She has been dressing the ulcer site with bacitracin. She denies any purulence, malodor, redness around the ulcer. She also denies any feelings of nausea, vomiting, fever, or chills currently. Progress of Wound: Patient presents for follow up today. She has noticed a slight improvement and slightly less pain since last week again with her proximal left lower leg ulcers. Patient says that on April 22 she fell off of her toilet and she had a laceration on her left anterior cabrera. She also had some hematoma formation to the left lateral leg as well as a continued left medial lower leg ulcer. Since the hematomas were debrided and removed, patient says she has been following the dressing changes as instructed as well as trying to keep compression over the area. She and one of her caregivers believe there continues to be slow improvement again this week. She says she has been taking her lasix. Patient says she continues to be on antibiotics per ID. Patient also states that the top of her left foot is improving. Currently she denies any nausea, vomiting, fever, or chills. - Physical Exam Vital Signs Temp Pulse Resp BP 96.8 F L 67 18 103/69 07/05/17 12:02 07/05/17 12:02 07/05/17 12:02 07/05/17 12:02 General: Alert, Oriented x3, Cooperative, No apparent distress Extremities: Capillary Refill Less than 3 Seconds, No Calf Tenderness - Negative Sunita and Abraham sign, Diminished Peripheral Pulses - DP and PT pulses nonpalpable due to pitting edema, Edema - Lower extremity pitting edema Skin: Ulcer/ Wound - Ulcers with fat layer exposed noted to the proximal left lower leg. Measurements are noted below. There continues to be slow improvement to these ulcer sites. The bases continue to be a mixture of adherent slough, fibrin, biofilm, granular tissue, and hyperkeratotic tissue. There also continues to be no probing to bone, no tracking, no undermining. There is no purulence, no malodor, no sign cellulitis, no increase in warmth noted at this time. 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 -Combined with other wound No -Current Size (cm) - Length 5.3 -Current Size (cm) - Width 4.4 -Current Size (cm) - Depth 0.3 -Total Square Cm 23.32 -Date of Last Picture (Recall this 07/05/17 field) -Photo Taken Yes -Epithelialization Medium 34-66% -Tunneling No -Undermining/Tunneling No -Circular Undermining No -Classification - Thickness Full Thickness without Exposed Support Structure -Exudate Amt Small (1-33%) -Exudate Type Serosanguineous -Wound Margin Distinct, Outline Attached -Granulation Amt Medium (34-66%) -Granulation Quality Pale Ernest -Slough/Fibrin Yes -Necrosis Amt None Present (0 %) -Necrotic Tissue Type Adherent Slough -Structure Exposed N/A -Texture (Char-wound Skin Appearance) No Abnormality -Moisture (Char-wound Skin Appearance No Abnormality ) -Color (Char-wound Skin Appearance) No Abnormality -Temperature (Char-wound Skin No Abnormality Appearance) (Pt Warm) -Tenderness on Palpation (Char-wound No Skin Appearance) -Ulcer Cleansing Rinsed/ Irrigated with Saline -Foul Odor after Cleansing No #5 Left Lateral Leg superior -Combined with other wound No -Current Size (cm) - Length 5.7 -Current Size (cm) - Width 6.9 -Current Size (cm) - Depth 0.3 -Total Square Cm 39.33 -Date of Last Picture (Recall this 07/05/17 field) -Photo Taken Yes -Epithelialization Medium 34-66% -Tunneling No -Undermining/Tunneling No -Circular Undermining No -Classification - Thickness Full Thickness without Exposed Support Structure -Exudate Amt Medium (34-66%) -Exudate Type Serosanguineous -Wound Margin Distinct, Outline Attached -Granulation Amt Medium (34-66%) -Granulation Quality Pale Ernest -Slough/Fibrin Yes -Necrosis Amt None Present (0 %) -Necrotic Tissue Type Adherent Slough -Structure Exposed N/A -Texture (Char-wound Skin Appearance) No Abnormality -Moisture (Cahr-wound Skin Appearance No Abnormality ) -Color (Char-wound Skin Appearance) No Abnormality -Temperature (Char-wound Skin No Abnormality Appearance) (Pt Warm) -Tenderness on Palpation (Char-wound No Skin Appearance) -Ulcer Cleansing Rinsed/ Irrigated with Saline -Foul Odor after Cleansing No [Edema Assessment] -Lower Limb Edema Present Yes -Point of measurement (cm from the 45.0 medial instep) -Point of Measurement (cm from the 28.0 medial instep) -Point of measurement (cm from the 47.0 medial instep) -Point of Measurement (cm from the 29.0 medial instep) WC - Nurse 2 - General Ulcer CM Notes Start: 06/07/17 11:05 Freq: Status: Active Protocol: Activity Type Activity Date Activity User E-Sign Co-Sign Detail Recorded Client Recorded Date Recorded By Document 07/05/17 12:39 KANDY [id number] 07/05/17 12:43 KANDY 07/05/17 12:39 Wound Center Nurse 2 [Procedure/Treatment] #6 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 INFERIOR CLUSTER -Time 12:41 -Correct Patient Yes -Correct Side, Site, Position Yes -Correct Procedure Yes -Procedure Performed Yes -Type of Procedure Debridement -Clinical Debridement Subcutaneous -Post Debridement Size (cm) - Length 4.9 -Post Debridement Size (cm) - Width 4.0 -Post Debridement Size (cm) - Depth 0.2 -Total Square Cm 19.60 -Wound/Ulcer Outcome Not Healed -Ulcer Cleansing Rinsed/ Irrigated with Saline -Foul Odor after Cleansing No -Bioengineered Tissue No -Injectable Lidocaine w/ Epi (%) 1 -Injectable Lidocaine w/ Epi (mls) 5 -Bleeding Controlled with NA -Treatment Response Procedure Tolerated Well #5 Left Lateral Leg superior -Time 12:42 -Correct Patient Yes -Correct Side, Site, Position Yes -Correct Procedure Yes -Procedure Performed Yes -Type of Procedure Debridement -Clinical Debridement Subcutaneous -Post Debridement Size (cm) - Length 6.0 -Post Debridement Size (cm) - Width 7.4 -Post Debridement Size (cm) - Depth 0.3 -Total Square Cm 44.40 -Wound/Ulcer Outcome Not Healed -Ulcer Cleansing Rinsed/ Irrigated with Saline -Foul Odor after Cleansing No -Bioengineered Tissue No -Injectable Lidocaine w/ Epi (%) 1 -Injectable Lidocaine w/ Epi (mls) 5 -Bleeding Controlled with NA -Treatment Response Procedure Tolerated Well [See Physician Procedure note for Specifics] Pain Scale: 0-10 Numeric [Pain] -Is Patient Pain Free? Yes Musculoskeletal: Tenderness - Slight tenderness with manipulation of ulcer sites Neurological: Sensory exam intact to light touch and pain Psych/Mental Status: Normal Affect, Appropriate Debridement Note Post-Debridement Measurements/Treatment WC - Nurse 2 - General Ulcer CM Notes Start: 06/07/17 11:05 Freq: Status: Active Protocol: Activity Type Activity Date Activity User E-Sign Co-Sign Detail Recorded Client Recorded Date Recorded By Document 06/07/17 11:24 MW [id number] 06/07/17 11:43 MW Document 06/14/17 11:57 MW [id number] 06/14/17 12:06 MW Document 06/21/17 12:02 JS [id number] 06/21/17 12:20 JS Document 06/28/17 12:04 JS [id number] 06/28/17 12:19 JS Document 07/05/17 12:39 JS [id number] 07/05/17 12:43 06/07/17 06/14/17 06/21/17 11:24 11:57 12:02 Wound Center Nurse 2 #6 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 INFERIOR CLUSTER -Time 11: 12:00 12:03 -Correct Patient Yes Yes Yes -Correct Side, Site, Position Yes Yes Yes -Correct Procedure Yes Yes Yes -Procedure Performed Yes Yes Yes -Type of Procedure Debridement Debridement Debridement -Clinical Debridement Subcutaneous Subcutaneous Subcutaneous -Post Debridement Size (cm) - Length 6.3 5.6 5.2 -Post Debridement Size (cm) - Width 7.8 4.5 4.3 -Post Debridement Size (cm) - Depth 0.3 0.3 0.3 -Total Square Cm 49.14 25.20 22.36 -Wound/Ulcer Outcome Not Healed Not Healed Not Healed -Ulcer Cleansing Rinsed/ Rinsed/ Rinsed/ Irrigated with Irrigated with Irrigated with Saline Saline Saline -Foul Odor after Cleansing No No No -Bioengineered Tissue No No No -Injectable Lidocaine (%) 1 1 -Lidocaine (ml) 5 10 -Injectable Lidocaine w/ Epi (%) -Injectable Lidocaine w/ Epi (mls) -Bleeding Controlled with Pressure Pressure NA -Treatment Response Procedure Procedure Procedure Tolerated Well Tolerated Well Tolerated Well #5 Left Lateral Leg superior -Time 11: 12:00 12:03 -Correct Patient Yes Yes Yes -Correct Side, Site, Position Yes Yes Yes -Correct Procedure Yes Yes Yes -Procedure Performed Yes Yes Yes -Type of Procedure Debridement Debridement Debridement -Clinical Debridement Subcutaneous Subcutaneous Subcutaneous -Post Debridement Size (cm) - Length 5.5 6.5 5.8 -Post Debridement Size (cm) - Width 4.3 7.0 7.3 -Post Debridement Size (cm) - Depth 0.3 0.3 0.3 -Total Square Cm 23.65 45.50 42.34 -Wound/Ulcer Outcome Not Healed Not Healed Not Healed -Ulcer Cleansing Rinsed/ Rinsed/ Not Cleansed Irrigated with Irrigated with Saline Saline -Foul Odor after Cleansing No No No -Bioengineered Tissue No No No -Injectable Lidocaine (%) 1 1 -Lidocaine (ml) 5 10 -Injectable Lidocaine w/ Epi (%) -Injectable Lidocaine w/ Epi (mls) -Bleeding Controlled with Pressure Pressure Pressure -Treatment Response Procedure Procedure Procedure Tolerated Well Tolerated Well Tolerated Well Pain Scale: 0-10 Numeric Is Patient Pain Free? Yes Yes Yes 06/28/17 07/05/17 12:04 12:39 Wound Center Nurse 2 #6 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 INFERIOR CLUSTER -Time 12:10 12:41 -Correct Patient Yes Yes -Correct Side, Site, Position Yes Yes -Correct Procedure Yes Yes -Procedure Performed Yes Yes -Type of Procedure Debridement Debridement -Clinical Debridement Subcutaneous Subcutaneous -Post Debridement Size (cm) - Length 5.0 4.9 -Post Debridement Size (cm) - Width 4.3 4.0 -Post Debridement Size (cm) - Depth 0.2 0.2 -Total Square Cm 21.50 19.60 -Wound/Ulcer Outcome Not Healed Not Healed -Ulcer Cleansing Rinsed/ Rinsed/ Irrigated with Irrigated with Saline Saline -Foul Odor after Cleansing No No -Bioengineered Tissue No No -Injectable Lidocaine (%) 1 -Lidocaine (ml) 10 -Injectable Lidocaine w/ Epi (%) 1 -Injectable Lidocaine w/ Epi (mls) 5 -Bleeding Controlled with Pressure NA -Treatment Response Procedure Tolerated Well #5 Left Lateral Leg superior -Time 12:11 12:42 -Correct Patient Yes Yes -Correct Side, Site, Position Yes Yes -Correct Procedure Yes Yes -Procedure Performed Yes Yes -Type of Procedure Debridement Debridement -Clinical Debridement Subcutaneous Subcutaneous -Post Debridement Size (cm) - Length 6.5 6.0 -Post Debridement Size (cm) - Width 6.6 7.4 -Post Debridement Size (cm) - Depth 0.3 0.3 -Total Square Cm 42.90 44.40 -Wound/Ulcer Outcome Not Healed Not Healed -Ulcer Cleansing Rinsed/ Rinsed/ Irrigated with Irrigated with Saline Saline -Foul Odor after Cleansing No No -Bioengineered Tissue No No -Injectable Lidocaine (%) 1 -Lidocaine (ml) 10 -Injectable Lidocaine w/ Epi (%) 1 -Injectable Lidocaine w/ Epi (mls) 5 -Bleeding Controlled with Pressure NA -Treatment Response Procedure Procedure Tolerated Well Tolerated Well Pain Scale: 0-10 Numeric Is Patient Pain Free? Yes Wound debrided: Left lateral leg superior cluster Laterality: Left Type of Debridement: Excisional debridement Anesthesia Used: 4% Lidocaine Solution, - - 1% lidocaine plain injection Depth: in the subcutaneous layer Percentage of wound debrided: 100 Instrument Used: 5mm curette Tissue Removed: Adherent slough, fibrin, biofilm, hyperkeratotic tissue Severity: Fat Layer Exposed Amount of bleeding with debridement: Mild Bleeding Controlled with: Pressure Patient tolerated procedure well - Additional Wound Wound debrided: Left lateral leg inferior Laterality: Left Type of Debridement: Excisional debridement Anesthesia Used: 4% Lidocaine Solution, - Depth: in the subcutaneous layer - 1% lidocaine plain injection Percentage of wound debrided: 100 Instrument Used: 5mm curette Tissue Removed: Adherent slough, fibrin, biofilm, hyperkeratotic tissue Severity: Fat Layer Exposed Amount of bleeding with debridement: Mild Bleeding Controlled with: Pressure Patient tolerated procedure: Patient tolerated procedure well Assessment/Plan Assessment: Ulcer to left lower leg with fat layer exposed. DM II. Lower extremity edema Plan: Patient was again examined and evaluated today. The aforementioned ulcers were again debrided subcutaneously as noted in the clinical panel. The ulcers have all improved slightly in appearance and depth since last visit again today. Once all of the ulcers were debrided and carefully cleansed, the ulcer sites were then dressed with aquacel ag, followed by a dry sterile dressing along with tubigrips followed by JASMINE wraps. We discussed the possibility of switching to francisco in the future. The dressing is to be changed in this manner daily. She will do this with the help of family friend, her son, and home health. It was again discussed the importance of keeping the compression from the toes all the way up to the knee, as she says some of the home health did not have her jasmine wraps all the way down to the toes. She has not been fully compliant with this in the past. She was instrcuted on the importance of keeping pressure off of all of the ulcer sites at all times while seated. I again stressed the importance of compression with the patient's healing. She was instructed to wear the tubigrip and to keep her lower extremities elevated while seated. She is to continue with lasix as prescribed by Dr. Franco. She completed course of antibiotics prescribed by Dr. Brown. I recommended a high-protein diet for this patient to supplement wound healing. Patient's insurance denied apligraf and puraply. Patient was educated on all signs and symptoms of local and systemic infection, and was instructed to go to the ER immediately should she notice any. All other questions were answered to the patient's satisfaction. The patient will follow-up in clinic in 1 week to check on progress, or sooner if needed.
== END 2017-07-05 23:59 ==
LOC: WC 11:15
PROVIDERS: Family Provider Family Medicine Geriatric Medicine; PCP Family Medicine Geriatric Medicine; Visit Provider Podiatrist
DX: E11.622 Type 2 diabetes mellitus with other skin ulcer (principal); L97.822 Non-pressure chronic ulcer of other part of left lower leg with fat layer exposed; E11.22 Type 2 diabetes mellitus with diabetic chronic kidney disease; N17.9 Acute kidney failure, unspecified; R60.0 Localized edema; E11.51 Type 2 diabetes mellitus with diabetic peripheral angiopathy without gangrene; G35 Multiple sclerosis
CPT/HCPCS: 11042; 11045

== ENCOUNTER 2017-08-02 11:00 | Outpatient (RCR) | payer MEDICARE, SELFPAY ==
[2017-07-06 00:44] VITALS: BP 103/69; PULSE 67; RESP 18; TEMP 36
[2017-07-19 10:10] VITALS: BP 169/67; PULSE 73; RESP 18; TEMP 36.3
--- NOTE | 2017-07-19 11:00 | PCM.WC.PN ---
(1) Ulcer of left lower extremity with fat layer exposed Status: Acute Current Visit: No Code(s): L97.922 - Non-pressure chronic ulcer of unspecified part of left lower leg with fat layer exposed (2) PVD (peripheral vascular disease) Status: Chronic Current Visit: No Code(s): I73.9 - Peripheral vascular disease, unspecified (3) Controlled diabetes mellitus Status: Chronic Current Visit: No Code(s): E11.9 - Type 2 diabetes mellitus without complications (4) Edema, lower extremity Status: Chronic Current Visit: No Code(s): R60.0 - Localized edema Type of Wound Date of Service: 07/19/17 Chief Complaint: Left anterior lower leg ulceration that will not heal. History of Wound: This 72 year old female has significant history of diabetes and multiple sclerosis, bilateral traumatic leg wounds, and other comorbidities. She presents to office today after being referred by Dr. Franco. Per his note, the patient had finished up a prescription for keflex and is on rocephin. Patient states that she recently got a new bed. She says since she is short she had to get a stool in order to get onto her bed. She fell on the stool and got an ulcer on the left anterior leg. She says this happed close to two weeks ago and has not seen much of an improvment since. She has been dressing the ulcer site with bacitracin. She denies any purulence, malodor, redness around the ulcer. She also denies any feelings of nausea, vomiting, fever, or chills currently. Progress of Wound: Patient presents for follow up today. Ulcers to her proximal left lower leg continue to improve. Patient says that on April 22 she fell off of her toilet and she had a laceration on her left anterior cabrera. She also had some hematoma formation to the left lateral leg as well as a continued left medial lower leg ulcer. Since the hematomas were debrided and removed, patient says she has been following the dressing changes as instructed as well as trying to keep compression over the area. She and one of her caregivers believe there continues to be slow improvement again this week. She says she has been taking her lasix. Patient says she continues to be on antibiotics per ID. Patient also states that the top of her left foot is improving. Currently she denies any nausea, vomiting, fever, or chills. - Physical Exam Vital Signs Temp Pulse Resp BP 97.3 F L 73 18 169/67 H 07/19/17 10:10 07/19/17 10:10 07/19/17 10:10 07/19/17 10:10 General: Alert, Oriented x3, Cooperative, No apparent distress Extremities: Capillary Refill Less than 3 Seconds, No Calf Tenderness - negative enma and casanova sign, Diminished Peripheral Pulses - DP and PT pulses nonpalpable due to lower extremity pitting edema, Edema - Bilateral lower extremity pitting edema Skin: Ulcer/ Wound - Ulcers with fat layer exposed noted to the proximal left lower leg. Measurements are noted below. There is another improvement appreciated between last week and this week. The bases continue to be a mixture of adherent slough, fibrin, biofilm, granular tissue as well as hyperkeratotic tissue. There continues to be no probing to bone, no tracking, no undermining, no purulence, no malodor, no extending cellulitis, no increase in warmth at this time. 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 -Combined with other wound No -Current Size (cm) - Length 4.3 -Current Size (cm) - Width 4 -Current Size (cm) - Depth 0.1 -Total Square Cm 17.2 -Photo Taken No -Tunneling No -Undermining/Tunneling No -Circular Undermining No -Classification - Thickness Full Thickness without Exposed Support Structure -Exudate Amt Small (1-33%) -Exudate Type Serosanguineous -Wound Margin Distinct, Outline Attached -Granulation Amt Large (67-100%) -Granulation Quality [place] Red -Slough/Fibrin Yes -Necrosis Amt Small (1-33%) -Necrotic Tissue Type Adherent Slough -Structure Exposed N/A -Texture (Char-wound Skin Appearance) Assessed -Moisture (Char-wound Skin Appearance Assessed ) Dry/Scaly -Color (Char-wound Skin Appearance) Assessed -Temperature (Char-wound Skin No Abnormality Appearance) (Pt Warm) -Tenderness on Palpation (Char-wound No Skin Appearance) -Ulcer Cleansing Rinsed/ Irrigated with Saline -Foul Odor after Cleansing No -Anesthetic Used 4% Lidocaine Solution #5 Left Lateral Leg superior -Combined with other wound No -Current Size (cm) - Length 3 -Current Size (cm) - Width 5.1 -Current Size (cm) - Depth 0.1 -Total Square Cm 15.3 -Photo Taken No -Epithelialization Small 1-33% -Tunneling No -Undermining/Tunneling No -Circular Undermining No -Classification - Thickness Full Thickness without Exposed Support Structure -Exudate Amt Small (1-33%) -Exudate Type Serosanguineous -Wound Margin Distinct, Outline Attached -Granulation Amt Large (67-100%) -Granulation Quality [place] Red -Slough/Fibrin Yes -Necrosis Amt Small (1-33%) -Necrotic Tissue Type Adherent Slough -Structure Exposed N/A -Texture (Char-wound Skin Appearance) Assessed -Moisture (Char-wound Skin Appearance Assessed ) Dry/Scaly -Color (Char-wound Skin Appearance) Assessed -Temperature (Char-wound Skin No Abnormality Appearance) (Pt Warm) -Tenderness on Palpation (Char-wound No Skin Appearance) -Ulcer Cleansing Rinsed/ Irrigated with Saline -Anesthetic Used 4% Lidocaine Solution [Edema Assessment] -Lower Limb Edema Present Yes -Left Calf (cm) 39 -Left Ankle (cm) 27.5 WC - Nurse 2 - General Ulcer CM Notes Start: 07/19/17 10:09 Freq: Status: Active Protocol: Activity Type Activity Date Activity User E-Sign Co-Sign Detail Recorded Client Recorded Date Recorded By Document 07/19/17 10:37 KANDY [id number] 07/19/17 10:46 KANDY 07/19/17 10:37 Wound Center Nurse 2 [Procedure/Treatment] #6 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 INFERIOR 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 -Time 10:37 -Correct Patient Yes -Correct Side, Site, Position Yes -Correct Procedure Yes -Procedure Performed Yes -Type of Procedure Debridement -Clinical Debridement Subcutaneous -Post Debridement Size (cm) - Length 3.8 -Post Debridement Size (cm) - Width 3.0 -Post Debridement Size (cm) - Depth 0.1 -Total Square Cm 11.40 -Wound/Ulcer Outcome Not Healed -Ulcer Cleansing Rinsed/ Irrigated with Saline -Foul Odor after Cleansing No -Bioengineered Tissue No -Injectable Lidocaine (%) 1 -Lidocaine (ml) 5 -Injectable Lidocaine w/ Epi (%) 1 -Bleeding Controlled with NA -Treatment Response Procedure Tolerated Well #5 Left Lateral Leg superior -Time 10:38 -Correct Patient Yes -Correct Side, Site, Position Yes -Correct Procedure Yes -Procedure Performed Yes -Type of Procedure Debridement -Clinical Debridement Subcutaneous -Post Debridement Size (cm) - Length 5.7 -Post Debridement Size (cm) - Width 5.8 -Post Debridement Size (cm) - Depth 0.1 -Total Square Cm 33.06 -Wound/Ulcer Outcome Not Healed -Ulcer Cleansing Rinsed/ Irrigated with Saline -Foul Odor after Cleansing No -Bioengineered Tissue No -Injectable Lidocaine (%) 1 -Lidocaine (ml) 5 -Injectable Lidocaine w/ Epi (%) 1 -Bleeding Controlled with NA -Treatment Response Procedure Tolerated Well [See Physician Procedure note for Specifics] Pain Scale: 0-10 Numeric [Pain] -Is Patient Pain Free? 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 INFERIOR CLUSTER -Time 10:37 -Correct Patient Yes -Correct Side, Site, Position Yes -Correct Procedure Yes -Procedure Performed Yes -Type of Procedure Debridement -Clinical Debridement Subcutaneous -Post Debridement Size (cm) - Length 3.8 -Post Debridement Size (cm) - Width 3.0 -Post Debridement Size (cm) - Depth 0.1 -Total Square Cm 11.40 -Wound/Ulcer Outcome Not Healed -Ulcer Cleansing Rinsed/ Irrigated with Saline -Foul Odor after Cleansing No -Bioengineered Tissue No -Injectable Lidocaine (%) 1 -Lidocaine (ml) 5 -Injectable Lidocaine w/ Epi (%) 1 -Bleeding Controlled with NA -Treatment Response Procedure Tolerated Well #5 Left Lateral Leg superior -Time 10:38 -Correct Patient Yes -Correct Side, Site, Position Yes -Correct Procedure Yes -Procedure Performed Yes -Type of Procedure Debridement -Clinical Debridement Subcutaneous -Post Debridement Size (cm) - Length 5.7 -Post Debridement Size (cm) - Width 5.8 -Post Debridement Size (cm) - Depth 0.1 -Total Square Cm 33.06 -Wound/Ulcer Outcome Not Healed -Ulcer Cleansing Rinsed/ Irrigated with Saline -Foul Odor after Cleansing No -Bioengineered Tissue No -Injectable Lidocaine (%) 1 -Lidocaine (ml) 5 -Injectable Lidocaine w/ Epi (%) 1 -Bleeding Controlled with NA -Treatment Response Procedure Tolerated Well Pain Scale: 0-10 Numeric Is Patient Pain Free? Yes Wound debrided: Left lateral leg superior Laterality: Left Type of Debridement: Excisional debridement Anesthesia Used: 4% Lidocaine Solution, - - 1% lidocaine plain with epinephrine Depth: in the subcutaneous layer Percentage of wound debrided: 100 Instrument Used: 5mm curette Tissue Removed: Adherent slough, fibrin, biofilm, hyperkeratotic tissue Severity: Fat Layer Exposed Amount of bleeding with debridement: Mild Bleeding Controlled with: Pressure Patient tolerated procedure well - Additional Wound Wound debrided: Left lateral leg inferior Laterality: Left Type of Debridement: Excisional debridement Anesthesia Used: 4% Lidocaine Solution, - - 1% lidocaine plain with epinephrine Depth: in the subcutaneous layer Percentage of wound debrided: 100 Instrument Used: 5mm curette Tissue Removed: Adherent slough, fibrin, biofilm, hyperkeratotic tissue Severity: Fat Layer Exposed Amount of bleeding with debridement: Mild Bleeding Controlled with: Pressure Patient tolerated procedure: Patient tolerated procedure well Assessment/Plan Assessment: Ulcer to left lower leg with fat layer exposed. DM II. Lower extremity edema Plan: Patient was again examined and evaluated today. The aforementioned ulcers were again debrided subcutaneously as noted in the clinical panel. The ulcers have all improved again in appearance and depth since last visit again today. Once all of the ulcers were debrided and carefully cleansed, the ulcer sites were then dressed with aquacel ag, followed by a dry sterile dressing along with tubigrips followed by JASMINE wraps. We discussed the possibility of switching to francisco in the future, but will continue with aquacel ag for now. The dressing is to be changed in this manner daily. She will do this with the help of family friend, her son, and home health. It was again discussed the importance of keeping the compression from the toes all the way up to the knee, as she says some of the home health did not have her jasmine wraps all the way down to the toes. She has not been fully compliant with this in the past. She was instrcuted on the importance of keeping pressure off of all of the ulcer sites at all times while seated. I again stressed the importance of compression with the patient's healing. She was instructed to wear the tubigrip and to keep her lower extremities elevated while seated. She is to continue with lasix as prescribed by Dr. Franco. She completed course of antibiotics prescribed by Dr. Brown. I recommended a high-protein diet for this patient to supplement wound healing. Patient's insurance denied apligraf and puraply. Patient was educated on all signs and symptoms of local and systemic infection, and was instructed to go to the ER immediately should she notice any. All other questions were answered to the patient's satisfaction. The patient will follow-up in clinic in 1 week to check on progress, or sooner if needed.
[2017-07-26 10:27] VITALS: BP 103/63; PULSE 65; RESP 18; TEMP 36.6
--- NOTE | 2017-07-26 11:31 | PCM.WC.PN ---
(1) Ulcer of left lower extremity with fat layer exposed Status: Acute Current Visit: No Code(s): L97.922 - Non-pressure chronic ulcer of unspecified part of left lower leg with fat layer exposed (2) PVD (peripheral vascular disease) Status: Chronic Current Visit: No Code(s): I73.9 - Peripheral vascular disease, unspecified (3) Controlled diabetes mellitus Status: Chronic Current Visit: No Code(s): E11.9 - Type 2 diabetes mellitus without complications (4) Edema, lower extremity Status: Chronic Current Visit: No Code(s): R60.0 - Localized edema Type of Wound Date of Service: 07/26/17 Chief Complaint: Left anterior lower leg ulceration that will not heal. History of Wound: This 72 year old female has significant history of diabetes and multiple sclerosis, bilateral traumatic leg wounds, and other comorbidities. She presents to office today after being referred by Dr. Franco. Per his note, the patient had finished up a prescription for keflex and is on rocephin. Patient states that she recently got a new bed. She says since she is short she had to get a stool in order to get onto her bed. She fell on the stool and got an ulcer on the left anterior leg. She says this happed close to two weeks ago and has not seen much of an improvment since. She has been dressing the ulcer site with bacitracin. She denies any purulence, malodor, redness around the ulcer. She also denies any feelings of nausea, vomiting, fever, or chills currently. Progress of Wound: Patient presents for follow up today. Ulcers to her proximal left lower leg continue to improve. Patient says that on April 22 she fell off of her toilet and she had a laceration on her left anterior cabrera. She also had some hematoma formation to the left lateral leg as well as a continued left medial lower leg ulcer. Since the hematomas were debrided and removed, patient says she has been following the dressing changes as instructed as well as trying to keep compression over the area. She and one of her caregivers believe there continues to be slow improvement again this week. She says she has been taking her lasix. Patient says she continues to be on antibiotics per ID. She denies any feelings of nausea, vomiting, fever, or chills. - Physical Exam Vital Signs Temp Pulse Resp BP 98 F 65 18 103/63 07/26/17 10:27 07/26/17 10:27 07/26/17 10:27 07/26/17 10:27 General: Alert, Oriented x3, Cooperative, No apparent distress Extremities: Capillary Refill Less than 3 Seconds, No Calf Tenderness - Negative Sunita and Abraham sign, Diminished Peripheral Pulses - DP and PT pulses nonpalpable due to lower extremity pitting edema, Edema - Bilateral lower extremity edema Skin: Ulcer/ Wound - Ulcers with fat layer exposed appreciated to the proximal left lower leg with measurements noted below. There continues to be slow improvement to each ulcer site again this week. The bases remain to be a mixture of adherent slough, fibrin, biofilm, granular tissue, and hyperkeratotic tissue. 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 -Combined with other wound No -Current Size (cm) - Length 4 -Current Size (cm) - Width 3.1 -Current Size (cm) - Depth 0.1 -Total Square Cm 12.4 -Photo Taken No -Epithelialization Small 1-33% -Tunneling No -Undermining/Tunneling No -Circular Undermining No -Classification - Thickness Full Thickness without Exposed Support Structure -Exudate Amt Small (1-33%) -Exudate Type Serosanguineous -Wound Margin Distinct, Outline Attached -Granulation Amt Large (67-100%) -Granulation Quality [place] -Slough/Fibrin Yes -Necrosis Amt Small (1-33%) -Necrotic Tissue Type Adherent Slough -Structure Exposed N/A -Texture (Char-wound Skin Appearance) Assessed Friable -Moisture (Char-wound Skin Appearance Assessed ) -Color (Char-wound Skin Appearance) Assessed -Temperature (Char-wound Skin No Abnormality Appearance) (Pt Warm) -Tenderness on Palpation (Char-wound No Skin Appearance) -Ulcer Cleansing Wound Cleanser -Foul Odor after Cleansing No -Anesthetic Used 4% Lidocaine Solution #5 Left Lateral Leg superior -Combined with other wound No -Current Size (cm) - Length 5 -Current Size (cm) - Width 6.2 -Current Size (cm) - Depth 0.1 -Total Square Cm 31.0 -Photo Taken No -Epithelialization Small 1-33% -Tunneling No -Undermining/Tunneling No -Circular Undermining No -Classification - Thickness Full Thickness without Exposed Support Structure -Exudate Amt Small (1-33%) -Exudate Type Serosanguineous -Wound Margin Distinct, Outline Attached -Granulation Amt Medium (34-66%) -Granulation Quality [place] -Slough/Fibrin Yes -Necrosis Amt Small (1-33%) -Necrotic Tissue Type Adherent Slough -Structure Exposed N/A -Texture (Char-wound Skin Appearance) Assessed Friable -Moisture (Char-wound Skin Appearance Assessed ) -Color (Char-wound Skin Appearance) Assessed -Temperature (Char-wound Skin No Abnormality Appearance) (Pt Warm) -Tenderness on Palpation (Char-wound No Skin Appearance) -Ulcer Cleansing Wound Cleanser -Foul Odor after Cleansing No -Anesthetic Used 4% Lidocaine Solution [Edema Assessment] -Lower Limb Edema Present Yes -Left Calf (cm) 44 -Left Ankle (cm) 28.5 WC - Nurse 2 - General Ulcer CM Notes Start: 07/19/17 10:09 Freq: Status: Active Protocol: Activity Type Activity Date Activity User E-Sign Co-Sign Detail Recorded Client Recorded Date Recorded By Document 07/26/17 11:03 [id number] 07/26/17 11:07 07/26/17 11:03 Wound Center Nurse 2 [Procedure/Treatment] #6 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 INFERIOR CLUSTER -Time 11:06 -Correct Patient Yes -Correct Side, Site, Position Yes -Correct Procedure Yes -Procedure Performed Yes -Type of Procedure Debridement -Clinical Debridement Subcutaneous -Post Debridement Size (cm) - Length 3.8 -Post Debridement Size (cm) - Width 3.0 -Post Debridement Size (cm) - Depth 0.1 -Total Square Cm 11.40 -Wound/Ulcer Outcome Not Healed -Ulcer Cleansing Rinsed/ Irrigated with Saline -Foul Odor after Cleansing No -Bioengineered Tissue No -Bleeding Controlled with Pressure -Treatment Response Procedure Tolerated Well #5 Left Lateral Leg superior -Time 11:06 -Correct Patient Yes -Correct Side, Site, Position Yes -Correct Procedure Yes -Procedure Performed Yes -Type of Procedure Debridement -Clinical Debridement Subcutaneous -Post Debridement Size (cm) - Length 6.4 -Post Debridement Size (cm) - Width 6.9 -Post Debridement Size (cm) - Depth 0.2 -Total Square Cm 44.16 -Wound/Ulcer Outcome Not Healed -Ulcer Cleansing Rinsed/ Irrigated with Saline -Foul Odor after Cleansing No -Bioengineered Tissue No -Bleeding Controlled with Pressure -Treatment Response Procedure Tolerated Well [See Physician Procedure note for Specifics] Pain Scale: 0-10 Numeric [Pain] -Is Patient Pain Free? Yes Musculoskeletal: Tenderness - Tenderness with manipulation of ulcer site Neurological: Sensory exam intact to light touch and pain Psych/Mental Status: Normal Affect, Appropriate Debridement Note Post-Debridement Measurements/Treatment WC - Nurse 2 - General Ulcer CM Notes Start: 07/19/17 10:09 Freq: Status: Active Protocol: Activity Type Activity Date Activity User E-Sign Co-Sign Detail Recorded Client Recorded Date Recorded By Document 07/19/17 10:37 [id number] 07/19/17 10:46 JS Document 07/26/17 11:03 [id number] 07/26/17 11:07 07/19/17 07/26/17 10:37 11:03 Wound Center Nurse 2 #6 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 INFERIOR CLUSTER -Time 10:37 11:06 -Correct Patient Yes Yes -Correct Side, Site, Position Yes Yes -Correct Procedure Yes Yes -Procedure Performed Yes Yes -Type of Procedure Debridement Debridement -Clinical Debridement Subcutaneous Subcutaneous -Post Debridement Size (cm) - Length 3.8 3.8 -Post Debridement Size (cm) - Width 3.0 3.0 -Post Debridement Size (cm) - Depth 0.1 0.1 -Total Square Cm 11.40 11.40 -Wound/Ulcer Outcome Not Healed Not Healed -Ulcer Cleansing Rinsed/ Rinsed/ Irrigated with Irrigated with Saline Saline -Foul Odor after Cleansing No No -Bioengineered Tissue No No -Injectable Lidocaine (%) 1 -Lidocaine (ml) 5 -Injectable Lidocaine w/ Epi (%) 1 -Bleeding Controlled with NA Pressure -Treatment Response Procedure Procedure Tolerated Well Tolerated Well #5 Left Lateral Leg superior -Time 10:38 11:06 -Correct Patient Yes Yes -Correct Side, Site, Position Yes Yes -Correct Procedure Yes Yes -Procedure Performed Yes Yes -Type of Procedure Debridement Debridement -Clinical Debridement Subcutaneous Subcutaneous -Post Debridement Size (cm) - Length 5.7 6.4 -Post Debridement Size (cm) - Width 5.8 6.9 -Post Debridement Size (cm) - Depth 0.1 0.2 -Total Square Cm 33.06 44.16 -Wound/Ulcer Outcome Not Healed Not Healed -Ulcer Cleansing Rinsed/ Rinsed/ Irrigated with Irrigated with Saline Saline -Foul Odor after Cleansing No No -Bioengineered Tissue No No -Injectable Lidocaine (%) 1 -Lidocaine (ml) 5 -Injectable Lidocaine w/ Epi (%) 1 -Bleeding Controlled with NA Pressure -Treatment Response Procedure Procedure Tolerated Well Tolerated Well Pain Scale: 0-10 Numeric Is Patient Pain Free? Yes Yes Wound debrided: Left lateral leg superior Laterality: Left Type of Debridement: Excisional debridement Anesthesia Used: 4% Lidocaine Solution, - - 1% lidocaine plain with epinephrine Depth: in the subcutaneous layer Percentage of wound debrided: 100 Instrument Used: 5mm curette Tissue Removed: Adherent slough, fibrin, biofilm, hyperkeratotic tissue Severity: Fat Layer Exposed Amount of bleeding with debridement: Mild Bleeding Controlled with: Pressure Patient tolerated procedure well - Additional Wound Wound debrided: Left lateral leg inferior Laterality: Left Type of Debridement: Excisional debridement Anesthesia Used: 4% Lidocaine Solution, - - 1% lidocaine plain with epinephrine Depth: in the subcutaneous layer Percentage of wound debrided: 100 Instrument Used: 5mm curette Tissue Removed: Adherent slough, fibrin, biofilm, hyperkeratotic tissue Severity: Fat Layer Exposed Amount of bleeding with debridement: Mild Bleeding Controlled with: Pressure Patient tolerated procedure: Patient tolerated procedure well Assessment/Plan Assessment: Ulcer to left lower leg with fat layer exposed. DM II. Lower extremity edema Plan: Patient was again examined and evaluated today. The aforementioned ulcers were again debrided subcutaneously as noted in the clinical panel. The ulcers have all improved again in appearance and depth since last visit again today. Once all of the ulcers were debrided and carefully cleansed, the ulcer sites were then dressed with aquacel ag, followed by a dry sterile dressing along with tubigrips followed by JASMINE wraps. She did not wear her JASMINE wraps as much as she had the prior week, and she was educated again on the importance of wearing them to keep the swelling down. We discussed the possibility of switching to francisco in the future, but will continue with aquacel ag for now. The dressing is to be changed in this manner daily. She will do this with the help of family friend, her son, and home health. It was again discussed the importance of keeping the compression from the toes all the way up to the knee, as she says some of the home health did not have her jasmine wraps all the way down to the toes. She has not been fully compliant with this in the past. She was instrcuted on the importance of keeping pressure off of all of the ulcer sites at all times while seated. I again stressed the importance of compression with the patient's healing. She was instructed to wear the tubigrip and to keep her lower extremities elevated while seated. She is to continue with lasix as prescribed by Dr. Franco. She completed course of antibiotics prescribed by Dr. Brown. I recommended a high-protein diet for this patient to supplement wound healing. Patient's insurance denied apligraf and puraply. Patient was educated on all signs and symptoms of local and systemic infection, and was instructed to go to the ER immediately should she notice any. All other questions were answered to the patient's satisfaction. The patient will follow-up in clinic in 1 week to check on progress, or sooner if needed.
[2017-08-02 11:21] VITALS: BP 167/86; PULSE 73; RESP 16; TEMP 37.1
--- NOTE | 2017-08-02 13:33 | PN.PCM_ITS ---
(1) Ulcer of left lower extremity with fat layer exposed Status: Acute Current Visit: No Code(s): L97.922 - Non-pressure chronic ulcer of unspecified part of left lower leg with fat layer exposed (2) PVD (peripheral vascular disease) Status: Chronic Current Visit: No Code(s): I73.9 - Peripheral vascular disease, unspecified (3) Controlled diabetes mellitus Status: Chronic Current Visit: No Code(s): E11.9 - Type 2 diabetes mellitus without complications (4) Edema, lower extremity Status: Chronic Current Visit: No Code(s): R60.0 - Localized edema Type of Wound Date of Service: 08/02/17 Chief Complaint: Left anterior lower leg ulceration that will not heal. History of Wound: This 72 year old female has significant history of diabetes and multiple sclerosis, bilateral traumatic leg wounds, and other comorbidities. She presents to office today after being referred by Dr. Franco. Per his note, the patient had finished up a prescription for keflex and is on rocephin. Patient states that she recently got a new bed. She says since she is short she had to get a stool in order to get onto her bed. She fell on the stool and got an ulcer on the left anterior leg. She says this happed close to two weeks ago and has not seen much of an improvment since. She has been dressing the ulcer site with bacitracin. She denies any purulence, malodor, redness around the ulcer. She also denies any feelings of nausea, vomiting, fever, or chills currently. Progress of Wound: Patient presents for follow up today. Ulcers to her proximal left lower leg continue to improve. Patient says that on April 22 she fell off of her toilet and she had a laceration on her left anterior cabrera. She also had some hematoma formation to the left lateral leg as well as a continued left medial lower leg ulcer. Since the hematomas were debrided and removed, patient says she has been following the dressing changes as instructed as well as trying to keep compression over the area. She and one of her caregivers believe there continues to be slow improvement again this week. She says she has been taking her lasix. She denies any feelings of nausea, vomiting, fever, or chills. - Physical Exam Vital Signs Temp Pulse Resp BP 98.7 F 73 16 167/86 H 06/28/18 11:21 08/02/17 11:21 08/02/17 11:21 08/02/17 11:21 General: Alert, Oriented x3, Cooperative, No apparent distress Extremities: Capillary Refill Less than 3 Seconds, No Calf Tenderness - Negative Sunita and Abraham sign, Diminished Peripheral Pulses - DP and PT pulses nonpalpable due to lower extremity pitting edema, Edema - Bilateral lower extremity edema Skin: Ulcer/ Wound - Ulcers with fat layer exposed appreciated to the proximal left lower leg with measurements noted below. There continues to be improvement to each ulcer site again this week. The base remains to be a mixture of adherent slough, fibrin, biofilm, granular tissue as well as some slight surrounding hyperkeratotic tissue. There remains no probing to bone, no tracking no undermining, no purulence, no malodor, no extending cellulitis, no increased warmth. Wound Measurements and Assessment WC - Nurse 1 - General Ulcer Measurement Start: 07/19/17 10:09 Freq: Status: Active Protocol: Activity Type Activity Date Activity User E-Sign Co-Sign Detail Recorded Client Recorded Date Recorded By Document 08/02/17 11:21 [facility] [id number] 08/02/17 11:29 [facility] 08/02/17 11:21 Wound Center Nurse 1 [Ulcer Assessment] #6 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 INFERIOR -Combined with other wound No -Current Size (cm) - Length 3 -Current Size (cm) - Width 2.8 -Current Size (cm) - Depth 0.1 -Total Square Cm 8.4 -Photo Taken No -Epithelialization Medium 34-66% -Tunneling No -Undermining/Tunneling No -Circular Undermining No -Exudate Amt Small (1-33%) -Exudate Type Serosanguineous -Wound Margin Distinct, Outline Attached -Granulation Amt Small (1-33%) -Granulation Quality Red -Slough/Fibrin Yes -Necrosis Amt Large (67-100%) -Necrotic Tissue Type Adherent Slough -Structure Exposed None/Limited to Skin Breakdown -Texture (Char-wound Skin Appearance) Scarring -Moisture (Char-wound Skin Appearance Assessed ) -Color (Char-wound Skin Appearance) Hemosiderin Staining -Temperature (Char-wound Skin No Abnormality Appearance) (Pt Warm) -Tenderness on Palpation (Char-wound No Skin Appearance) -Ulcer Cleansing Rinsed/ Irrigated with Saline -Foul Odor after Cleansing No -Anesthetic Used 4% Lidocaine Solution #5 Left Lateral Leg superior CLUSTER -Combined with other wound No -Current Size (cm) - Length 3.5 -Current Size (cm) - Width 4.9 -Current Size (cm) - Depth 0.1 -Total Square Cm 17.15 -Photo Taken No -Epithelialization Small 1-33% -Tunneling No -Undermining/Tunneling No -Circular Undermining No -Exudate Amt Small (1-33%) -Exudate Type Serosanguineous -Wound Margin Distinct, Outline Attached -Granulation Amt Medium (34-66%) -Granulation Quality Red -Slough/Fibrin Yes -Necrosis Amt Medium (34-66%) -Necrotic Tissue Type Adherent Slough -Structure Exposed None/Limited to Skin Breakdown -Texture (Char-wound Skin Appearance) Scarring -Color (Char-wound Skin Appearance) Hemosiderin Staining -Temperature (Char-wound Skin No Abnormality Appearance) (Pt Warm) -Tenderness on Palpation (Char-wound No Skin Appearance) -Ulcer Cleansing Rinsed/ Irrigated with Saline -Foul Odor after Cleansing No -Anesthetic Used 4% Lidocaine Solution [Edema Assessment] -Lower Limb Edema Present Yes -Left Calf (cm) 40 -Left Ankle (cm) 28.5 -Left Foot (cm) 27.5 WC - Nurse 2 - General Ulcer CM Notes Start: 07/19/17 10:09 Freq: Status: Active Protocol: Activity Type Activity Date Activity User E-Sign Co-Sign Detail Recorded Client Recorded Date Recorded By Document 08/02/17 11:47 [id number] 08/02/17 11:51 08/02/17 11:47 Wound Center Nurse 2 [Procedure/Treatment] #6 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 INFERIOR -Time 11:47 -Correct Patient Yes -Correct Side, Site, Position Yes -Correct Procedure Yes -Procedure Performed Yes -Type of Procedure Debridement -Clinical Debridement Subcutaneous -Post Debridement Size (cm) - Length 3.2 -Post Debridement Size (cm) - Width 3.1 -Post Debridement Size (cm) - Depth 0.1 -Total Square Cm 9.92 -Wound/Ulcer Outcome Not Healed -Ulcer Cleansing Not Cleansed -Foul Odor after Cleansing No -Bioengineered Tissue No -Bleeding Controlled with NA -Treatment Response Procedure Tolerated Well #5 Left Lateral Leg superior CLUSTER -Time 11:47 -Correct Patient Yes -Correct Side, Site, Position Yes -Correct Procedure Yes -Procedure Performed Yes -Type of Procedure Debridement -Clinical Debridement Subcutaneous -Post Debridement Size (cm) - Length 5.4 -Post Debridement Size (cm) - Width 6.2 -Post Debridement Size (cm) - Depth 0.2 -Total Square Cm 33.48 -Wound/Ulcer Outcome Not Healed -Ulcer Cleansing Not Cleansed -Foul Odor after Cleansing No -Bioengineered Tissue No -Bleeding Controlled with NA -Treatment Response Procedure Tolerated Well [See Physician Procedure note for Specifics] Pain Scale: 0-10 Numeric [Pain] -Is Patient Pain Free? Yes Musculoskeletal: Tenderness - With manipulation of ulcer site Neurological: Sensory exam intact to light touch and pain Psych/Mental Status: Normal Affect, Appropriate Debridement Note Post-Debridement Measurements/Treatment WC - Nurse 2 - General Ulcer CM Notes Start: 07/19/17 10:09 Freq: Status: Active Protocol: Activity Type Activity Date Activity User E-Sign Co-Sign Detail Recorded Client Recorded Date Recorded By Document 07/19/17 10:37 [id number] 07/19/17 10:46 JS Document 07/26/17 11:03 [id number] 07/26/17 11:07 Document 08/02/17 11:47 [id number] 08/02/17 11:51 07/19/17 07/26/17 08/02/17 10:37 11:03 11:47 Wound Center Nurse 2 #6 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 INFERIOR -Time 10:37 11:06 11:47 -Correct Patient Yes Yes Yes -Correct Side, Site, Position Yes Yes Yes -Correct Procedure Yes Yes Yes -Procedure Performed Yes Yes Yes -Type of Procedure Debridement Debridement Debridement -Clinical Debridement Subcutaneous Subcutaneous Subcutaneous -Post Debridement Size (cm) - Length 3.8 3.8 3.2 -Post Debridement Size (cm) - Width 3.0 3.0 3.1 -Post Debridement Size (cm) - Depth 0.1 0.1 0.1 -Total Square Cm 11.40 11.40 9.92 -Wound/Ulcer Outcome Not Healed Not Healed Not Healed -Ulcer Cleansing Rinsed/ Rinsed/ Not Cleansed Irrigated with Irrigated with Saline Saline -Foul Odor after Cleansing No No No -Bioengineered Tissue No No No -Injectable Lidocaine (%) 1 -Lidocaine (ml) 5 -Injectable Lidocaine w/ Epi (%) 1 -Bleeding Controlled with NA Pressure NA -Treatment Response Procedure Procedure Procedure Tolerated Well Tolerated Well Tolerated Well #5 Left Lateral Leg superior CLUSTER -Time 10:38 11:06 11:47 -Correct Patient Yes Yes Yes -Correct Side, Site, Position Yes Yes Yes -Correct Procedure Yes Yes Yes -Procedure Performed Yes Yes Yes -Type of Procedure Debridement Debridement Debridement -Clinical Debridement Subcutaneous Subcutaneous Subcutaneous -Post Debridement Size (cm) - Length 5.7 6.4 5.4 -Post Debridement Size (cm) - Width 5.8 6.9 6.2 -Post Debridement Size (cm) - Depth 0.1 0.2 0.2 -Total Square Cm 33.06 44.16 33.48 -Wound/Ulcer Outcome Not Healed Not Healed Not Healed -Ulcer Cleansing Rinsed/ Rinsed/ Not Cleansed Irrigated with Irrigated with Saline Saline -Foul Odor after Cleansing No No No -Bioengineered Tissue No No No -Injectable Lidocaine (%) 1 -Lidocaine (ml) 5 -Injectable Lidocaine w/ Epi (%) 1 -Bleeding Controlled with NA Pressure NA -Treatment Response Procedure Procedure Procedure Tolerated Well Tolerated Well Tolerated Well Pain Scale: 0-10 Numeric Is Patient Pain Free? Yes Yes Yes Wound debrided: Left lateral leg superior Laterality: Left Type of Debridement: Excisional debridement Anesthesia Used: 4% Lidocaine Solution, - - 1% lidocaine plain with epinephrine Depth: in the subcutaneous layer Percentage of wound debrided: 100 Instrument Used: 5mm curette Tissue Removed: Adherent slough, fibrin, biofilm, hyperkeratotic tissue Severity: Fat Layer Exposed Amount of bleeding with debridement: Mild Bleeding Controlled with: Pressure Patient tolerated procedure well - Additional Wound Wound debrided: Left lateral leg inferior Laterality: Left Type of Debridement: Excisional debridement Anesthesia Used: 4% Lidocaine Solution, - - 1% lidocaine plain with epinephrine Depth: in the subcutaneous layer Percentage of wound debrided: 100 Instrument Used: 5mm curette Tissue Removed: Adherent slough, fibrin, biofilm, hyperkeratotic tissue Severity: Fat Layer Exposed Amount of bleeding with debridement: Mild Bleeding Controlled with: Pressure Patient tolerated procedure: Patient tolerated procedure well Assessment/Plan Assessment: Ulcer to left lower leg with fat layer exposed. DM II. Lower extremity edema Plan: Patient was again examined and evaluated today. The aforementioned ulcers were again debrided subcutaneously as noted in the clinical panel. The ulcers have all improved again in appearance and depth since last visit again today, with some budding appreciated to ulcer sites. Once all of the ulcers were debrided and carefully cleansed, the ulcer sites were then dressed with aquacel ag, followed by a dry sterile dressing along with tubigrips followed by JASMINE wraps. The dressing is to be changed in this manner daily. She will do this with the help of family friend, her son, and home health. It was again discussed the importance of keeping the compression from the toes all the way up to the knee, as she says some of the home health did not have her jasmine wraps all the way down to the toes. She has not been fully compliant with this in the past. She was instrcuted on the importance of keeping pressure off of all of the ulcer sites at all times while seated. I again stressed the importance of compression with the patient's healing. She was instructed to wear the tubigrip and to keep her lower extremities elevated while seated. She is to continue with lasix as prescribed by Dr. Franco. She completed course of antibiotics prescribed by Dr. Brown. I recommended a high-protein diet for this patient to supplement wound healing. Patient's insurance denied apligraf and puraply. Patient was educated on all signs and symptoms of local and systemic infection, and was instructed to go to the ER immediately should she notice any. All other questions were answered to the patient's satisfaction. The patient will follow-up in clinic in 1 week to check on progress, or sooner if needed.
== END 2017-08-04 23:59 ==
LOC: WC 11:00
PROVIDERS: Family Provider Family Medicine Geriatric Medicine; PCP Family Medicine Geriatric Medicine; Visit Provider Podiatrist
DX: E11.622 Type 2 diabetes mellitus with other skin ulcer (principal); L97.822 Non-pressure chronic ulcer of other part of left lower leg with fat layer exposed; E11.22 Type 2 diabetes mellitus with diabetic chronic kidney disease; N17.9 Acute kidney failure, unspecified; R60.0 Localized edema; E11.51 Type 2 diabetes mellitus with diabetic peripheral angiopathy without gangrene; G35 Multiple sclerosis
CPT/HCPCS: 11042; 11045

== ENCOUNTER → 2017-08-24 09:47 | Outpatient (CLI) | payer MEDICARE, SELFPAY ==
--- NOTE | 2017-08-24 09:52 | RAD_ITS ---
STUDY: X-RAY - LUMBAR SPINE REASON FOR EXAM: Female, 72 years old. Low back pain TECHNIQUE: 3 view(s) of the lumbar spine were obtained. COMPARISON: Previous study of 01/11/2017 FINDINGS: Normal lumbar lordosis. There is no substantial scoliosis. There is a grade 1 anterolisthesis of L4 relative to L5. There is no evidence of associated spondylolysis. There is severe narrowing of the T12-L1 disc space with sclerosis of the adjacent endplates and vacuum disc phenomenon. There is mild narrowing of the L2-3 disc space. There is no demonstrated fracture. There are calcified plaques of the abdominal aorta and common iliac arteries. RAD/Lumbar Spine 2 or 3 Views IMPRESSION: 1. Grade 1 L4-5 anterolisthesis of L4 relative to L5. 2. Severe disc space narrowing at the T12-L1 level with vacuum disc phenomenon and sclerosis of the adjacent vertebral body endplates. 3. Mild narrowing of the L2-3 disc space. 4. Allowing for differences in radiographic technique findings are similar to the previous study. Electronically Signed: Lester Maurer MD at 19:52 EDT , Service support ,
--- NOTE | 2017-08-24 10:15 | RAD_ITS ---
STUDY: X-RAY - PELVIS AND BILATERAL HIPS REASON FOR EXAM: Female, 72 years old. Pain upon walking and standing, no injury TECHNIQUE: Radiological exam, hip, bilateral, with pelvis when performed; 2 views COMPARISON: Prior right hip study of 11/16/2016 and left hip study of 01/05/2010 FINDINGS: There is a non-specific bowel gas pattern. Normal visualized soft tissue structures. There is a mild dysraphism of the posterior elements of S1. Normal bilateral superior and inferior pubic rami. Normal pubic symphysis. Normal bilateral ischial tuberosities. Normal visualized right femoral head. Normal right acetabulum. Normal right hip joint. There are mild osteoarthritic changes of the left hip joint. There is no evidence of left hip fracture, dislocation, or lytic or blastic osseous process. There are numerous vascular clips overlying the left hip area and proximal medial thigh. RAD/Hips B/L min 2 views w/ Pelvis IMPRESSION: Mild osteoarthritic changes of the left hip joint. Mild dysraphism of the posterior elements of S1. Electronically Signed: Lester Maurer MD at 20:12 EDT , Service support ,
== END ==
LOC: RAD 09:49
PROVIDERS: Family Provider Family Medicine Geriatric Medicine; PCP Family Medicine Geriatric Medicine; Visit Provider Family Medicine Geriatric Medicine
DX: M54.5 Low back pain (principal); M16.0 Bilateral primary osteoarthritis of hip
CPT/HCPCS: 72100; 73521

== ENCOUNTER 2017-08-30 10:00 | Outpatient (RCR) | payer MEDICARE, SELFPAY ==
[2017-08-05 00:40] VITALS: BP 167/86; PULSE 73; RESP 16; TEMP 37.1
[2017-08-09 09:31] VITALS: BP 149/89; PULSE 72; RESP 16; TEMP 37
--- NOTE | 2017-08-09 10:10 | PCM.WC.PN ---
(1) Ulcer of left lower extremity with fat layer exposed Status: Acute Current Visit: No Code(s): L97.922 - Non-pressure chronic ulcer of unspecified part of left lower leg with fat layer exposed (2) PVD (peripheral vascular disease) Status: Chronic Current Visit: No Code(s): I73.9 - Peripheral vascular disease, unspecified (3) Controlled diabetes mellitus Status: Chronic Current Visit: No Code(s): E11.9 - Type 2 diabetes mellitus without complications (4) Edema, lower extremity Status: Chronic Current Visit: No Code(s): R60.0 - Localized edema Type of Wound Date of Service: 08/09/17 Chief Complaint: Left anterior lower leg ulceration that will not heal. History of Wound: This 72 year old female has significant history of diabetes and multiple sclerosis, bilateral traumatic leg wounds, and other comorbidities. She presents to office today after being referred by Dr. Franco. Per his note, the patient had finished up a prescription for keflex and is on rocephin. Patient states that she recently got a new bed. She says since she is short she had to get a stool in order to get onto her bed. She fell on the stool and got an ulcer on the left anterior leg. She says this happed close to two weeks ago and has not seen much of an improvment since. She has been dressing the ulcer site with bacitracin. She denies any purulence, malodor, redness around the ulcer. She also denies any feelings of nausea, vomiting, fever, or chills currently. Progress of Wound: Patient presents for follow up today. Ulcers to her proximal left lower leg continue to improve. Patient says that on April 22 she fell off of her toilet and she had a laceration on her left anterior cabrera. She also had some hematoma formation to the left lateral leg as well as a continued left medial lower leg ulcer. Since the hematomas were debrided and removed, patient says she has been following the dressing changes as instructed as well as trying to keep compression over the area. She and one of her caregivers believe there continues to be slow improvement again this week. She says she has been taking her lasix. Patient also says that over the weekend she had to wear shoes for a wedding that were too tight and she had gauze over her toes. She said the pressure was rubbing some of the toes of her left foot and caused some very minor blistering which she also noticed some clear drainage from. The blister areas have healed and there are no openings noted, but there is some yary minor redness to the areas. She denies any feelings of nausea, vomiting, fever, or chills. - Physical Exam Vital Signs Temp Pulse Resp BP 98.6 F 72 16 149/89 H 08/09/17 09:31 08/09/17 09:31 08/09/17 09:31 08/09/17 09:31 General: Alert, Oriented x3, Cooperative, No apparent distress Extremities: Capillary Refill Less than 3 Seconds, No Calf Tenderness - Negative Sunita and Abraham sign, Diminished Peripheral Pulses - DP and PT pulses nonpalpable due to lower extremity pitting edema, Edema - Bilateral lower extremity edema Skin: Ulcer/ Wound - Ulcer with fat layer exposed appreciated the proximal left lower leg with measurements noted below. There is another significant improvement to each of the previous 2 ulcer sites again this week. The base continues to be a mixture of adherent slough, fibrin, biofilm, granular tissue as well as some very minor surrounding hyperkeratotic tissue. There remains no probing to bone, no tracking, no undermining, no purulence, no malodor, no extending cellulitis, no increase in warmth. The area of previous small blisters from last weekend to the dorsal lesser toes of the left foot appears healed at this time. There are no openings in the skin appreciated at this time as well as no openings appreciated in the webspaces. There is some minor surrounding erythema appreciated, but the patient says is very slowly improving. She does note some very minor tenderness to the area as well. There is no purulence appreciated. Wound Measurements and Assessment WC - Nurse 1 - General Ulcer Measurement Start: 08/09/17 09:30 Freq: Status: Active Protocol: Activity Type Activity Date Activity User E-Sign Co-Sign Detail Recorded Client Recorded Date Recorded By Document 08/09/17 09:31 CAMILLE [id number] 08/09/17 09:37 TN 08/09/17 09:31 Wound Center Nurse 1 [Ulcer Assessment] #6 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 INFERIOR -Combined with other wound No -Current Size (cm) - Length 2.3 -Current Size (cm) - Width 2.9 -Current Size (cm) - Depth 0.1 -Total Square Cm 6.67 -Photo Taken No -Epithelialization None Present -Tunneling No -Undermining/Tunneling No -Circular Undermining No -Classification - Thickness Full Thickness without Exposed Support Structure -Change in Wound Grade/Stage No Query Text:If change please identify the Stage/Grade in the comment (ie. S2 G3) -Exudate Amt Small (1-33%) -Exudate Type Serosanguineous -Wound Margin Distinct, Outline Attached -Granulation Amt Small (1-33%) -Granulation Quality [place] -Slough/Fibrin Yes -Necrosis Amt Large (67-100%) -Necrotic Tissue Type Adherent Slough -Structure Exposed None/Limited to Skin Breakdown -Texture (Char-wound Skin Appearance) Assessed Localized Edema Scarring -Moisture (Char-wound Skin Appearance Assessed ) -Color (Char-wound Skin Appearance) Assessed Erythema -Temperature (Char-wound Skin No Abnormality Appearance) (Pt Warm) -Tenderness on Palpation (Char-wound No Skin Appearance) -Ulcer Cleansing Wound Cleanser -Foul Odor after Cleansing No -Anesthetic Used 5% Lidocaine Gel #5 Left Lateral Leg superior CLUSTER -Combined with other wound No -Current Size (cm) - Length 2.3 -Current Size (cm) - Width 2.9 -Current Size (cm) - Depth 0.1 -Total Square Cm 6.67 -Photo Taken No -Epithelialization Small 1-33% -Tunneling No -Undermining/Tunneling No -Circular Undermining No -Classification - Thickness Full Thickness without Exposed Support Structure -Change in Wound Grade/Stage No Query Text:If change please identify the Stage/Grade in the comment (ie. S2 G3) -Exudate Amt Small (1-33%) -Exudate Type Serosanguineous -Wound Margin Distinct, Outline Attached -Granulation Amt Small (1-33%) -Granulation Quality [place] -Slough/Fibrin Yes -Necrosis Amt Large (67-100%) -Necrotic Tissue Type Adherent Slough -Structure Exposed None/Limited to Skin Breakdown -Texture (Char-wound Skin Appearance) Assessed Localized Edema Scarring -Moisture (Char-wound Skin Appearance No Abnormality ) Assessed -Color (Char-wound Skin Appearance) Assessed Erythema -Temperature (Char-wound Skin No Abnormality Appearance) (Pt Warm) -Tenderness on Palpation (Char-wound No Skin Appearance) -Ulcer Cleansing Wound Cleanser -Foul Odor after Cleansing No -Anesthetic Used 5% Lidocaine Gel [Edema Assessment] -Lower Limb Edema Present Yes WC - Nurse 2 - General Ulcer CM Notes Start: 08/09/17 09:30 Freq: Status: Active Protocol: Activity Type Activity Date Activity User E-Sign Co-Sign Detail Recorded Client Recorded Date Recorded By Document 08/09/17 10:07 [id number] 08/09/17 10:08 08/09/17 10:07 Wound Center Nurse 2 [Procedure/Treatment] #6 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 INFERIOR -Time 10:00 -Correct Patient Yes -Correct Side, Site, Position Yes -Correct Procedure Yes -Procedure Performed Yes -Type of Procedure Debridement -Clinical Debridement Subcutaneous -Post Debridement Size (cm) - Length 2.6 -Post Debridement Size (cm) - Width 2.6 -Post Debridement Size (cm) - Depth 0.1 -Total Square Cm 6.76 -Wound/Ulcer Outcome Not Healed -Ulcer Cleansing Not Cleansed -Foul Odor after Cleansing No -Bioengineered Tissue No -Bleeding Controlled with NA -Treatment Response Procedure Tolerated Well #5 Left Lateral Leg superior CLUSTER -Time 10:00 -Correct Patient Yes -Correct Side, Site, Position Yes -Correct Procedure Yes -Procedure Performed Yes -Type of Procedure Debridement -Clinical Debridement Subcutaneous -Post Debridement Size (cm) - Length 1.9 -Post Debridement Size (cm) - Width 3.4 -Post Debridement Size (cm) - Depth 0.2 -Total Square Cm 6.46 -Wound/Ulcer Outcome Not Healed -Ulcer Cleansing Not Cleansed -Foul Odor after Cleansing No -Bioengineered Tissue No -Bleeding Controlled with NA -Treatment Response Procedure Tolerated Well [See Physician Procedure note for Specifics] Pain Scale: 0-10 Numeric [Pain] -Is Patient Pain Free? Yes Musculoskeletal: Tenderness - With manipulation of ulcer site Neurological: Sensory exam intact to light touch and pain Psych/Mental Status: Normal Affect, Appropriate Debridement Note Post-Debridement Measurements/Treatment - Nurse 2 - General Ulcer CM Notes Start: 08/09/17 09:30 Freq: Status: Active Protocol: Activity Type Activity Date Activity User E-Sign Co-Sign Detail Recorded Client Recorded Date Recorded By Document 08/09/17 10:07 [id number] 08/09/17 10:08 CS 08/09/17 10:07 Wound Center Nurse 2 #6 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 INFERIOR -Time 10:00 -Correct Patient Yes -Correct Side, Site, Position Yes -Correct Procedure Yes -Procedure Performed Yes -Type of Procedure Debridement -Clinical Debridement Subcutaneous -Post Debridement Size (cm) - Length 2.6 -Post Debridement Size (cm) - Width 2.6 -Post Debridement Size (cm) - Depth 0.1 -Total Square Cm 6.76 -Wound/Ulcer Outcome Not Healed -Ulcer Cleansing Not Cleansed -Foul Odor after Cleansing No -Bioengineered Tissue No -Bleeding Controlled with NA -Treatment Response Procedure Tolerated Well #5 Left Lateral Leg superior CLUSTER -Time 10:00 -Correct Patient Yes -Correct Side, Site, Position Yes -Correct Procedure Yes -Procedure Performed Yes -Type of Procedure Debridement -Clinical Debridement Subcutaneous -Post Debridement Size (cm) - Length 1.9 -Post Debridement Size (cm) - Width 3.4 -Post Debridement Size (cm) - Depth 0.2 -Total Square Cm 6.46 -Wound/Ulcer Outcome Not Healed -Ulcer Cleansing Not Cleansed -Foul Odor after Cleansing No -Bioengineered Tissue No -Bleeding Controlled with NA -Treatment Response Procedure Tolerated Well Pain Scale: 0-10 Numeric Is Patient Pain Free? Yes Wound debrided: Left lateral leg superior Laterality: Left Type of Debridement: Excisional debridement Anesthesia Used: 4% Lidocaine Solution, - - 1% lidocaine with epinephrine Depth: in the subcutaneous layer Percentage of wound debrided: 100 Instrument Used: 5mm curette Tissue Removed: Adherent slough, fibrin, biofilm, hyperkeratotic tissue Severity: Fat Layer Exposed Amount of bleeding with debridement: Mild Bleeding Controlled with: Pressure Patient tolerated procedure well - Additional Wound Wound debrided: Left lateral leg inferior Laterality: Left Type of Debridement: Excisional debridement Anesthesia Used: 4% Lidocaine Solution, - - 1% lidocaine with epinephrine Depth: in the subcutaneous layer Percentage of wound debrided: 100 Instrument Used: 5mm curette Tissue Removed: Adherent slough, fibrin, biofilm, hyperkeratotic tissue Severity: Fat Layer Exposed Amount of bleeding with debridement: Mild Bleeding Controlled with: Pressure Patient tolerated procedure: Patient tolerated procedure well Assessment/Plan Assessment: Ulcer to left lower leg with fat layer exposed. DM II. Lower extremity edema Plan: Patient was again examined and evaluated today. The aforementioned ulcers were again debrided subcutaneously as noted in the clinical panel. The ulcers have all improved again in appearance and depth since last visit again today, with continued budding appreciated to ulcer sites. Once all of the ulcers were debrided and carefully cleansed, the ulcer sites were then dressed with aquacel ag, followed by a dry sterile dressing along with tubigrips followed by JASMINE wraps. The dressing is to be changed in this manner daily. She will do this with the help of family friend, her son, and home health. It was again discussed the importance of keeping the compression from the toes all the way up to the knee, as she says some of the home health did not have her jasmine wraps all the way down to the toes. She has not been fully compliant with this in the past. She was instrcuted on the importance of keeping pressure off of all of the ulcer sites at all times while seated. I again stressed the importance of compression with the patient's healing. She was instructed to wear the tubigrip and to keep her lower extremities elevated while seated. She is to continue with lasix as prescribed by Dr. Franco. I recommended a high-protein diet for this patient to supplement wound healing. Patient's insurance denied apligraf and puraply. Also today, a prescription for 10 days worth of cephalexin 500mg was prescribed to the patient for the minor erythema appreciated to the dorsal lesser toes and very distal forefoot. She says she has taken cephalexin in the past without any issue. I told her to take the medication in the presence of someone else in case of any adverse reaction. She understands this. Aquacel ag will also be placed in between and on top of the toes of the left foot in case there is any drainage. This will be followed by a dry sterile dressing. Patient was educated on all signs and symptoms of local and systemic infection, and was instructed to go to the ER immediately should she notice any. I advised her to keep an eye on the area and if the redness gets darker or extends up the foot, if she notices any prulence, an incrase in warmth to the area, or if the foot looks as if it is worsening as opposed to improving, that she needs to get into the ER right away for evaluation. She understands and agrees with this plan. All other questions were answered to the patient's satisfaction. The patient will follow-up in clinic in 1 week to check on progress, or sooner if needed.
[2017-08-16 10:36] VITALS: BP 144/69; PULSE 72; RESP 18; TEMP 37.3
--- NOTE | 2017-08-16 11:21 | PN.PCM_ITS ---
(1) Ulcer of left lower extremity with fat layer exposed Status: Acute Current Visit: No Code(s): L97.922 - Non-pressure chronic ulcer of unspecified part of left lower leg with fat layer exposed (2) PVD (peripheral vascular disease) Status: Chronic Current Visit: No Code(s): I73.9 - Peripheral vascular disease, unspecified (3) Controlled diabetes mellitus Status: Chronic Current Visit: No Code(s): E11.9 - Type 2 diabetes mellitus without complications (4) Edema, lower extremity Status: Chronic Current Visit: No Code(s): R60.0 - Localized edema Type of Wound Date of Service: 08/16/17 Chief Complaint: Left anterior lower leg ulceration that will not heal. History of Wound: This 72 year old female has significant history of diabetes and multiple sclerosis, bilateral traumatic leg wounds, and other comorbidities. She presents to office today after being referred by Dr. Franco. Per his note, the patient had finished up a prescription for keflex and is on rocephin. Patient states that she recently got a new bed. She says since she is short she had to get a stool in order to get onto her bed. She fell on the stool and got an ulcer on the left anterior leg. She says this happed close to two weeks ago and has not seen much of an improvment since. She has been dressing the ulcer site with bacitracin. She denies any purulence, malodor, redness around the ulcer. She also denies any feelings of nausea, vomiting, fever, or chills currently. Progress of Wound: Patient presents for follow up today. Ulcers to her proximal left lower leg continue to improve. Patient says that on April 22 she fell off of her toilet and she had a laceration on her left anterior cabrera. She also had some hematoma formation to the left lateral leg as well as a continued left medial lower leg ulcer. Since the hematomas were debrided and removed, patient says she has been following the dressing changes as instructed as well as trying to keep compression over the area. She and one of her caregivers believe there continues to be slow improvement again this week. She says she has been taking her lasix. Patient says the areas around her toes have improved greatly since last week and she was able to finish her prescribed antibiotic without complication. She currently denies any feelings of nausea, vomiting, fever, or chills. - Physical Exam Vital Signs Temp Pulse Resp BP 99.1 F 72 18 144/69 H 08/16/17 10:36 08/16/17 10:36 08/16/17 10:36 08/16/17 10:36 General: Alert, Oriented x3, Cooperative, No apparent distress Extremities: Capillary Refill Less than 3 Seconds, No Calf Tenderness - Negative Sunita and Abraham sign, Diminished Peripheral Pulses - DP and PT pulses nonpalpable due to lower extremity pitting edema, Edema - Bilateral lower extremity pitting edema Skin: Ulcer/ Wound - Ulcer with fat layer exposed to proximal lower leg. Measurements are noted below. There is been another significant improvement to each of the patient's 2 ulcer sites again this week. The bases continue to be a mixture of adherent slough, fibrin, granular tissue as well as some surrounding hyperkeratotic tissue. There continues to be no probing to bone, no tracking, no undermining, no purulence, no malodor, no extending cellulitis, no increase in warmth to the ulcer sites. Slight erythema noted surrounding the toes of the left foot last week has completely resolved, and there are no signs or symptoms of local infection appreciated at this time. Wound Measurements and Assessment WC - Nurse 1 - General Ulcer Measurement Start: 08/09/17 09:30 Freq: Status: Active Protocol: Activity Type Activity Date Activity User E-Sign Co-Sign Detail Recorded Client Recorded Date Recorded By Document 08/16/17 10:36 [id number] 08/16/17 10:40 08/16/17 10:36 Wound Center Nurse 1 [Ulcer Assessment] #6 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 INFERIOR -Combined with other wound No -Current Size (cm) - Length 3.4 -Current Size (cm) - Width 2.9 -Current Size (cm) - Depth 0.1 -Total Square Cm 9.86 -Photo Taken No -Epithelialization Medium 34-66% -Tunneling No -Undermining/Tunneling No -Circular Undermining No -Exudate Amt Medium (34-66%) -Exudate Type Serosanguineous -Wound Margin Distinct, Outline Attached -Granulation Amt Small (1-33%) -Granulation Quality [place] Red -Slough/Fibrin Yes -Necrosis Amt Medium (34-66%) -Necrotic Tissue Type Adherent Slough -Structure Exposed None/Limited to Skin Breakdown -Texture (Char-wound Skin Appearance) No Abnormality Assessed -Moisture (Char-wound Skin Appearance Assessed ) Maceration -Color (Char-wound Skin Appearance) Erythema -Temperature (Char-wound Skin No Abnormality Appearance) (Pt Warm) -Tenderness on Palpation (Char-wound Yes Skin Appearance) -Ulcer Cleansing Rinsed/ Irrigated with Saline -Foul Odor after Cleansing No #5 Left Lateral Leg superior CLUSTER -Combined with other wound No -Current Size (cm) - Length 2.1 -Current Size (cm) - Width 2.2 -Current Size (cm) - Depth 0.1 -Total Square Cm 4.62 -Photo Taken No -Epithelialization None Present -Tunneling No -Undermining/Tunneling No -Circular Undermining No -Exudate Amt Medium (34-66%) -Exudate Type Serosanguineous -Wound Margin Distinct, Outline Attached -Granulation Amt Medium (34-66%) -Granulation Quality [place] Red -Necrosis Amt Medium (34-66%) -Necrotic Tissue Type Adherent Slough -Structure Exposed None/Limited to Skin Breakdown -Texture (Char-wound Skin Appearance) Assessed Scarring -Moisture (Char-wound Skin Appearance No Abnormality ) Assessed -Color (Char-wound Skin Appearance) Assessed -Temperature (Char-wound Skin No Abnormality Appearance) (Pt Warm) -Tenderness on Palpation (Char-wound Yes Skin Appearance) -Ulcer Cleansing Rinsed/ Irrigated with Saline -Foul Odor after Cleansing No [Edema Assessment] -Lower Limb Edema Present Yes -Right Calf (cm) 38.9 -Right Ankle (cm) 27.0 -Left Calf (cm) 34.0 -Left Ankle (cm) 25.0 WC - Nurse 2 - General Ulcer CM Notes Start: 08/09/17 09:30 Freq: Status: Active Protocol: Activity Type Activity Date Activity User E-Sign Co-Sign Detail Recorded Client Recorded Date Recorded By Document 08/16/17 11:00 [id number] 08/16/17 11:08 08/16/17 11:00 Wound Center Nurse 2 [Procedure/Treatment] #6 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 INFERIOR -Time 11:00 -Correct Patient Yes -Correct Side, Site, Position Yes -Correct Procedure Yes -Procedure Performed Yes -Type of Procedure Debridement -Clinical Debridement Subcutaneous -Post Debridement Size (cm) - Length 3.1 -Post Debridement Size (cm) - Width 2.5 -Post Debridement Size (cm) - Depth 0.5 -Total Square Cm 7.75 -Wound/Ulcer Outcome Not Healed -Ulcer Cleansing Not Cleansed -Foul Odor after Cleansing No -Bioengineered Tissue No -Bleeding Controlled with Pressure -Treatment Response Procedure Tolerated Well #5 Left Lateral Leg superior CLUSTER -Time 11:01 -Correct Patient Yes -Correct Side, Site, Position Yes -Correct Procedure Yes -Procedure Performed Yes -Type of Procedure Debridement -Clinical Debridement Subcutaneous -Post Debridement Size (cm) - Length 1.7 -Post Debridement Size (cm) - Width 2.4 -Post Debridement Size (cm) - Depth 0.1 -Total Square Cm 4.08 -Wound/Ulcer Outcome Not Healed -Ulcer Cleansing Not Cleansed -Foul Odor after Cleansing No -Bioengineered Tissue No -Bleeding Controlled with Pressure -Treatment Response Procedure Tolerated Well [See Physician Procedure note for Specifics] Pain Scale: 0-10 Numeric [Pain] -Is Patient Pain Free? Yes Musculoskeletal: Tenderness - With manipulation of ulcer sites Neurological: Sensory exam intact to light touch and pain Psych/Mental Status: Normal Affect, Appropriate Debridement Note Post-Debridement Measurements/Treatment WC - Nurse 2 - General Ulcer CM Notes Start: 08/09/17 09:30 Freq: Status: Active Protocol: Activity Type Activity Date Activity User E-Sign Co-Sign Detail Recorded Client Recorded Date Recorded By Document 08/09/17 10:07 [id number] 08/09/17 10:08 Document 08/16/17 11:00 [id number] 08/16/17 11:08 08/09/17 08/16/17 10:07 11:00 Wound Center Nurse 2 #6 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 INFERIOR -Time 10:00 11:00 -Correct Patient Yes Yes -Correct Side, Site, Position Yes Yes -Correct Procedure Yes Yes -Procedure Performed Yes Yes -Type of Procedure Debridement Debridement -Clinical Debridement Subcutaneous Subcutaneous -Post Debridement Size (cm) - Length 2.6 3.1 -Post Debridement Size (cm) - Width 2.6 2.5 -Post Debridement Size (cm) - Depth 0.1 0.5 -Total Square Cm 6.76 7.75 -Wound/Ulcer Outcome Not Healed Not Healed -Ulcer Cleansing Not Cleansed Not Cleansed -Foul Odor after Cleansing No No -Bioengineered Tissue No No -Bleeding Controlled with NA Pressure -Treatment Response Procedure Procedure Tolerated Well Tolerated Well #5 Left Lateral Leg superior CLUSTER -Time 10:00 11:01 -Correct Patient Yes Yes -Correct Side, Site, Position Yes Yes -Correct Procedure Yes Yes -Procedure Performed Yes Yes -Type of Procedure Debridement Debridement -Clinical Debridement Subcutaneous Subcutaneous -Post Debridement Size (cm) - Length 1.9 1.7 -Post Debridement Size (cm) - Width 3.4 2.4 -Post Debridement Size (cm) - Depth 0.2 0.1 -Total Square Cm 6.46 4.08 -Wound/Ulcer Outcome Not Healed Not Healed -Ulcer Cleansing Not Cleansed Not Cleansed -Foul Odor after Cleansing No No -Bioengineered Tissue No No -Bleeding Controlled with NA Pressure -Treatment Response Procedure Procedure Tolerated Well Tolerated Well Pain Scale: 0-10 Numeric Is Patient Pain Free? Yes Yes Wound debrided: Left lateral leg superior Laterality: Left Type of Debridement: Excisional debridement Anesthesia Used: 4% Lidocaine Solution, - - 1% lidocaine with epinephrine Depth: in the subcutaneous layer Percentage of wound debrided: 100 Instrument Used: 5mm curette Tissue Removed: Adherent slough, fibrin, hyperkeratotic tissue Severity: Fat Layer Exposed Amount of bleeding with debridement: Mild Bleeding Controlled with: Pressure Patient tolerated procedure well - Additional Wound Wound debrided: Left lateral leg inferior Laterality: Left Type of Debridement: Excisional debridement Anesthesia Used: 4% Lidocaine Solution, - - 1% lidocaine with epinephrine Depth: in the subcutaneous layer Percentage of wound debrided: 100 Instrument Used: 5mm curette Tissue Removed: Adherent slough, fibrin, hyperkeratotic tissue Severity: Fat Layer Exposed Amount of bleeding with debridement: Mild Bleeding Controlled with: Pressure Assessment/Plan Assessment: Ulcer to left lower leg with fat layer exposed. DM II. Lower extremity edema Plan: Patient was again examined and evaluated today. The aforementioned ulcers were again debrided subcutaneously as noted in the clinical panel. The ulcers have all improved again in appearance and depth since last visit again today, with continued budding appreciated to ulcer sites. Once all of the ulcers were debrided and carefully cleansed, the ulcer sites were then dressed with aquacel ag, followed by a dry sterile dressing along with tubigrips followed by JASMINE wraps. The dressing is to be changed in this manner daily. She will do this with the help of family friend, her son, and home health. It was again discussed the importance of keeping the compression from the toes all the way up to the knee, as she says some of the home health did not have her jasmine wraps all the way down to the toes. She has not been fully compliant with this in the past. She was instrcuted on the importance of keeping pressure off of all of the ulcer sites at all times while seated. I again stressed the importance of compression with the patient's healing. She was instructed to wear the tubigrip and to keep her lower extremities elevated while seated. She is to continue with lasix as prescribed by Dr. Franco. I recommended a high- protein diet for this patient to supplement wound healing. Patient's insurance denied apligraf and puraply. Patient completed course of cephalexin with no complications. Patient was educated on all signs and symptoms of local and systemic infection, and was instructed to go to the ER immediately should she notice any. All other questions were answered to the patient's satisfaction. The patient will follow-up in clinic in 1 week to check on progress, or sooner if needed.
[2017-08-23 09:53] VITALS: BP 155/55; PULSE 84; RESP 22; TEMP 37.5
--- NOTE | 2017-08-23 10:50 | PN.PCM_ITS ---
(1) Ulcer of left lower extremity with fat layer exposed Status: Acute Current Visit: No Code(s): L97.922 - Non-pressure chronic ulcer of unspecified part of left lower leg with fat layer exposed (2) PVD (peripheral vascular disease) Status: Chronic Current Visit: No Code(s): I73.9 - Peripheral vascular disease, unspecified (3) Controlled diabetes mellitus Status: Chronic Current Visit: No Code(s): E11.9 - Type 2 diabetes mellitus without complications (4) Edema, lower extremity Status: Chronic Current Visit: No Code(s): R60.0 - Localized edema Type of Wound Date of Service: 08/23/17 Chief Complaint: Left anterior lower leg ulceration that will not heal. History of Wound: This 72 year old female has significant history of diabetes and multiple sclerosis, bilateral traumatic leg wounds, and other comorbidities. She presents to office today after being referred by Dr. Franco. Per his note, the patient had finished up a prescription for keflex and is on rocephin. Patient states that she recently got a new bed. She says since she is short she had to get a stool in order to get onto her bed. She fell on the stool and got an ulcer on the left anterior leg. She says this happed close to two weeks ago and has not seen much of an improvment since. She has been dressing the ulcer site with bacitracin. She denies any purulence, malodor, redness around the ulcer. She also denies any feelings of nausea, vomiting, fever, or chills currently. Progress of Wound: Patient presents for follow up today. Ulcers to her proximal left lower leg continue to show improvement. Patient says that on April 22 she fell off of her toilet and she had a laceration on her left anterior cabrera. She also had some hematoma formation to the left lateral leg as well as a continued left medial lower leg ulcer. Since the hematomas were debrided and removed, patient says she has been following the dressing changes as instructed as well as trying to keep compression over the area. She believes there continues to be slow improvement again this week. She says she has been taking her lasix. Patient says the areas around her toes have improved greatly since last week and she was able to finish her prescribed antibiotic without complication. She currently denies any feelings of nausea, vomiting, fever, or chills. - Physical Exam Vital Signs Temp Pulse Resp BP 99.5 F H 84 22 H 155/55 H 08/23/17 09:53 08/23/17 09:53 08/23/17 09:53 08/23/17 09:53 General: Alert, Oriented x3, Cooperative, No apparent distress Extremities: Capillary Refill Less than 3 Seconds, No Calf Tenderness - Negative Sunita and Abraham sign, Diminished Peripheral Pulses - DP and PT pulses nonpalpable due to lower extremity pitting edema, Edema - Bilateral lower extremity pitting edema Skin: Ulcer/ Wound - Ulcer with fat layer exposed the proximal left lower leg. Measurements noted below. Another improvement in ulcer sites appreciated again this week. The bases continue to be a mixture of adherent slough, fibrin, granular tissue as well as some slight surrounding hyperkeratotic tissue. There is no probing to bone, no tracking, no undermining, no purulence, no malodor, no extending cellulitis, and no increased warmth appreciated to the ulcer sites. Wound Measurements and Assessment WC - Nurse 1 - General Ulcer Measurement Start: 08/09/17 09:30 Freq: Status: Active Protocol: Activity Type Activity Date Activity User E-Sign Co-Sign Detail Recorded Client Recorded Date Recorded By Document 08/23/17 09:53 [id number] 08/23/17 10:05 DL 08/23/17 09:53 Wound Center Nurse 1 [Ulcer Assessment] #6 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 INFERIOR -Current Size (cm) - Length 3 -Current Size (cm) - Width 2.8 -Current Size (cm) - Depth 0.1 -Total Square Cm 8.4 -Photo Taken No -Exudate Amt Medium (34-66%) -Exudate Type Serosanguineous -Wound Margin Distinct, Outline Attached -Granulation Amt Medium (34-66%) -Granulation Quality Haywood -Necrosis Amt Medium (34-66%) -Necrotic Tissue Type Adherent Slough -Structure Exposed N/A -Texture (Char-wound Skin Appearance) Localized Edema Scarring -Moisture (Char-wound Skin Appearance No Abnormality ) -Color (Char-wound Skin Appearance) Hemosiderin Staining -Temperature (Char-wound Skin No Abnormality Appearance) (Pt Warm) -Tenderness on Palpation (Char-wound No Skin Appearance) -Ulcer Cleansing Rinsed/ Irrigated with Saline -Foul Odor after Cleansing No -Anesthetic Used 4% Lidocaine Solution #5 Left Lateral Leg superior CLUSTER -Current Size (cm) - Length 1.6 -Current Size (cm) - Width 2.5 -Current Size (cm) - Depth 0.1 -Total Square Cm 4.00 -Photo Taken No -Exudate Amt Medium (34-66%) -Exudate Type Serosanguineous -Wound Margin Distinct, Outline Attached -Granulation Amt Medium (34-66%) -Granulation Quality Red -Necrosis Amt Medium (34-66%) -Necrotic Tissue Type Adherent Slough -Structure Exposed N/A -Texture (Char-wound Skin Appearance) Localized Edema Scarring -Moisture (Char-wound Skin Appearance No Abnormality ) -Color (Char-wound Skin Appearance) Hemosiderin Staining -Temperature (Char-wound Skin No Abnormality Appearance) (Pt Warm) -Tenderness on Palpation (Char-wound No Skin Appearance) -Ulcer Cleansing Rinsed/ Irrigated with Saline -Foul Odor after Cleansing No -Anesthetic Used 4% Lidocaine Solution [Edema Assessment] -Right Calf (cm) 41.2 -Right Ankle (cm) 29.2 -Left Calf (cm) 34.6 -Left Ankle (cm) 26.5 WC - Nurse 2 - General Ulcer CM Notes Start: 08/09/17 09:30 Freq: Status: Active Protocol: Activity Type Activity Date Activity User E-Sign Co-Sign Detail Recorded Client Recorded Date Recorded By Document 08/23/17 10:17 [id number] 08/23/17 10:29 08/23/17 10:17 Wound Center Nurse 2 [Procedure/Treatment] #6 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 INFERIOR -Time 10:26 -Correct Patient Yes -Correct Side, Site, Position Yes -Correct Procedure Yes -Procedure Performed Yes -Type of Procedure Debridement -Clinical Debridement Subcutaneous -Post Debridement Size (cm) - Length 3.1 -Post Debridement Size (cm) - Width 2.9 -Post Debridement Size (cm) - Depth 0.1 -Total Square Cm 8.99 -Wound/Ulcer Outcome Not Healed -Ulcer Cleansing Not Cleansed -Foul Odor after Cleansing No -Bioengineered Tissue No -Bleeding Controlled with Pressure -Treatment Response Procedure Tolerated Well #5 Left Lateral Leg superior CLUSTER -Time 10:26 -Correct Patient Yes -Correct Side, Site, Position Yes -Correct Procedure Yes -Procedure Performed Yes -Type of Procedure Debridement -Clinical Debridement Subcutaneous -Post Debridement Size (cm) - Length 1 -Post Debridement Size (cm) - Width 2.4 -Post Debridement Size (cm) - Depth 0.1 -Total Square Cm 2.4 -Wound/Ulcer Outcome Not Healed -Ulcer Cleansing Not Cleansed -Foul Odor after Cleansing No -Bioengineered Tissue No -Bleeding Controlled with Pressure -Treatment Response Procedure Tolerated Well [See Physician Procedure note for Specifics] Pain Scale: 0-10 Numeric [Pain] -Is Patient Pain Free? Yes Musculoskeletal: Tenderness - With manipulation of ulcer sites Neurological: Sensory exam intact to light touch and pain Psych/Mental Status: Normal Affect, Appropriate Debridement Note Post-Debridement Measurements/Treatment WC - Nurse 2 - General Ulcer CM Notes Start: 08/09/17 09:30 Freq: Status: Active Protocol: Activity Type Activity Date Activity User E-Sign Co-Sign Detail Recorded Client Recorded Date Recorded By Document 08/09/17 10:07 [id number] 08/09/17 10:08 Document 08/16/17 11:00 [id number] 08/16/17 11:08 Document 08/23/17 10:17 [id number] 08/23/17 10:29 08/09/17 08/16/17 08/23/17 10:07 11:00 10:17 Wound Center Nurse 2 #6 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 INFERIOR -Time 10:00 11:00 10:26 -Correct Patient Yes Yes Yes -Correct Side, Site, Position Yes Yes Yes -Correct Procedure Yes Yes Yes -Procedure Performed Yes Yes Yes -Type of Procedure Debridement Debridement Debridement -Clinical Debridement Subcutaneous Subcutaneous Subcutaneous -Post Debridement Size (cm) - Length 2.6 3.1 3.1 -Post Debridement Size (cm) - Width 2.6 2.5 2.9 -Post Debridement Size (cm) - Depth 0.1 0.5 0.1 -Total Square Cm 6.76 7.75 8.99 -Wound/Ulcer Outcome Not Healed Not Healed Not Healed -Ulcer Cleansing Not Cleansed Not Cleansed Not Cleansed -Foul Odor after Cleansing No No No -Bioengineered Tissue No No No -Bleeding Controlled with NA Pressure Pressure -Treatment Response Procedure Procedure Procedure Tolerated Well Tolerated Well Tolerated Well #5 Left Lateral Leg superior CLUSTER -Time 10:00 11:01 10:26 -Correct Patient Yes Yes Yes -Correct Side, Site, Position Yes Yes Yes -Correct Procedure Yes Yes Yes -Procedure Performed Yes Yes Yes -Type of Procedure Debridement Debridement Debridement -Clinical Debridement Subcutaneous Subcutaneous Subcutaneous -Post Debridement Size (cm) - Length 1.9 1.7 1 -Post Debridement Size (cm) - Width 3.4 2.4 2.4 -Post Debridement Size (cm) - Depth 0.2 0.1 0.1 -Total Square Cm 6.46 4.08 2.4 -Wound/Ulcer Outcome Not Healed Not Healed Not Healed -Ulcer Cleansing Not Cleansed Not Cleansed Not Cleansed -Foul Odor after Cleansing No No No -Bioengineered Tissue No No No -Bleeding Controlled with NA Pressure Pressure -Treatment Response Procedure Procedure Procedure Tolerated Well Tolerated Well Tolerated Well Pain Scale: 0-10 Numeric Is Patient Pain Free? Yes Yes Yes Wound debrided: Left lateral leg superior Laterality: Left Type of Debridement: Excisional debridement Anesthesia Used: 4% Lidocaine Solution, - - 1% lidocaine with epinephrine Depth: in the subcutaneous layer Percentage of wound debrided: 100 Instrument Used: 5mm curette Tissue Removed: Adherent slough, fibrin, hyperkeratotic tissue Severity: Fat Layer Exposed Amount of bleeding with debridement: Mild Bleeding Controlled with: Pressure Patient tolerated procedure well - Additional Wound Wound debrided: Left lateral leg inferior Laterality: Left Type of Debridement: Excisional debridement Anesthesia Used: 4% Lidocaine Solution, - - 1% lidocaine with epinephrine Depth: in the subcutaneous layer Percentage of wound debrided: 100 Instrument Used: 5mm curette Tissue Removed: Adherent slough, fibrin, hyperkeratotic tissue Severity: Fat Layer Exposed Amount of bleeding with debridement: Mild Bleeding Controlled with: Pressure Assessment/Plan Assessment: Ulcer to left lower leg with fat layer exposed. DM II. Lower extremity edema Plan: Patient was again examined and evaluated today. The aforementioned ulcers were again debrided subcutaneously as noted in the clinical panel. The ulcers have all improved again in appearance and depth since last visit again today. Once all of the ulcers were debrided and carefully cleansed, the ulcer sites were then dressed with aquacel ag, followed by a dry sterile dressing along with tubigrips followed by JASMINE wraps. The dressing is to be changed in this manner daily. She will do this with the help of family friend, her son, and home health. It was again discussed the importance of keeping the compression from the toes all the way up to the knee, as she says some of the home health did not have her jasmine wraps all the way down to the toes. She has not been fully compliant with this in the past. She was instrcuted on the importance of keeping pressure off of all of the ulcer sites at all times while seated. I again stressed the importance of compression with the patient's healing. She was instructed to wear the tubigrip and to keep her lower extremities elevated while seated. She is to continue with lasix as prescribed by Dr. Franco. I recommended a high-protein diet for this patient to supplement wound healing. Patient's insurance denied apligraf and puraply. Patient completed course of cephalexin with no complications. Patient was educated on all signs and symptoms of local and systemic infection, and was instructed to go to the ER immediately should she notice any. All other questions were answered to the patient's satisfaction. The patient will follow-up in clinic in 1 week to check on progress, or sooner if needed.
[2017-08-30 10:21] VITALS: BP 152/81; PULSE 74; RESP 18; TEMP 37.3
--- NOTE | 2017-08-30 10:23 | WC ---
pt states I hit my R foot on walker. no open area noted on R anterior foot bruising noted.
--- NOTE | 2017-08-30 10:40 | PCM.WC.PN ---
(1) Ulcer of left lower extremity with fat layer exposed Status: Acute Current Visit: No Code(s): L97.922 - Non-pressure chronic ulcer of unspecified part of left lower leg with fat layer exposed (2) PVD (peripheral vascular disease) Status: Chronic Current Visit: No Code(s): I73.9 - Peripheral vascular disease, unspecified (3) Controlled diabetes mellitus Status: Chronic Current Visit: No Code(s): E11.9 - Type 2 diabetes mellitus without complications (4) Edema, lower extremity Status: Chronic Current Visit: No Code(s): R60.0 - Localized edema Type of Wound Date of Service: 08/30/17 Chief Complaint: Left anterior lower leg ulceration that will not heal. History of Wound: This 72 year old female has significant history of diabetes and multiple sclerosis, bilateral traumatic leg wounds, and other comorbidities. She presents to office today after being referred by Dr. Franco. Per his note, the patient had finished up a prescription for keflex and is on rocephin. Patient states that she recently got a new bed. She says since she is short she had to get a stool in order to get onto her bed. She fell on the stool and got an ulcer on the left anterior leg. She says this happed close to two weeks ago and has not seen much of an improvment since. She has been dressing the ulcer site with bacitracin. She denies any purulence, malodor, redness around the ulcer. She also denies any feelings of nausea, vomiting, fever, or chills currently. Progress of Wound: Patient presents for follow up today. Ulcers to her proximal left lower leg continue to show improvement. Patient says that on April 22 she fell off of her toilet and she had a laceration on her left anterior cabrera. She also had some hematoma formation to the left lateral leg as well as a continued left medial lower leg ulcer. Since the hematomas were debrided and removed, patient says she has been following the dressing changes as instructed as well as trying to keep compression over the area. She believes there continues to be slow improvement again this week. She says she has been taking her lasix. Patient says the areas around her toes have improved greatly since last week and she was able to finish her prescribed antibiotic without complication. She says she has been doing better with her compression this past week as well. She currently denies any feelings of nausea, vomiting, fever, or chills. - Physical Exam Vital Signs Temp Pulse Resp BP 99.1 F 74 18 152/81 H 08/30/17 10:21 08/30/17 10:21 08/30/17 10:21 08/30/17 10:21 General: Alert, Oriented x3, Cooperative, No apparent distress Extremities: Capillary Refill Less than 3 Seconds, No Calf Tenderness - Negative Sunita and Abraham sign, Diminished Peripheral Pulses - DP and PT pulses nonpalpable due to lower extremity pitting edema, Edema - Bilateral lower extremity pitting edema Skin: Ulcer/ Wound - Ulcers noted with fat layer exposed to the proximal left lower leg. Measurements noted below. Improvement noted again this week. The bases continue to be a mixture of adherent slough, fibrin, granular tissue as well as some slight surrounding hyperkeratotic tissue. There continues to be no probing to bone, no tracking, no undermining, no purulence, no malodor, no extending cellulitis, and no increase in warmth appreciated to the ulcer sites. Wound Measurements and Assessment WC - Nurse 1 - General Ulcer Measurement Start: 08/09/17 09:30 Freq: Status: Active Protocol: Activity Type Activity Date Activity User E-Sign Co-Sign Detail Recorded Client Recorded Date Recorded By Document 08/30/17 10:21 [id number] 08/30/17 10:27 RB 08/30/17 10:21 Wound Center Nurse 1 [Ulcer Assessment] #6 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 INFERIOR -Combined with other wound No -Current Size (cm) - Length 2.8 -Current Size (cm) - Width 2.4 -Current Size (cm) - Depth 0.1 -Total Square Cm 6.72 -Photo Taken No -Epithelialization Small 1-33% -Tunneling No -Undermining/Tunneling No -Circular Undermining No -Classification - Thickness Full Thickness without Exposed Support Structure -Exudate Amt Small (1-33%) -Exudate Type Serosanguineous -Wound Margin Distinct, Outline Attached -Granulation Amt Large (67-100%) -Granulation Quality [place] Red -Slough/Fibrin Yes -Necrosis Amt Small (1-33%) -Necrotic Tissue Type Adherent Slough -Structure Exposed N/A -Texture (Char-wound Skin Appearance) Assessed -Moisture (Char-wound Skin Appearance Assessed ) -Color (Char-wound Skin Appearance) Assessed -Temperature (Char-wound Skin No Abnormality Appearance) (Pt Warm) -Tenderness on Palpation (Char-wound No Skin Appearance) -Ulcer Cleansing Rinsed/ Irrigated with Saline -Foul Odor after Cleansing No -Anesthetic Used 4% Lidocaine Solution #5 Left Lateral Leg superior CLUSTER -Combined with other wound No -Current Size (cm) - Length 1.6 -Current Size (cm) - Width 2.4 -Current Size (cm) - Depth 0.1 -Total Square Cm 3.84 -Photo Taken No -Tunneling No -Undermining/Tunneling No -Circular Undermining No -Classification - Thickness Full Thickness without Exposed Support Structure -Exudate Amt Small (1-33%) -Exudate Type Serosanguineous -Wound Margin Distinct, Outline Attached -Granulation Amt Large (67-100%) -Granulation Quality [place] Red -Slough/Fibrin Yes -Necrosis Amt Small (1-33%) -Necrotic Tissue Type Adherent Slough -Structure Exposed N/A -Texture (Char-wound Skin Appearance) Assessed -Moisture (Char-wound Skin Appearance Assessed ) -Color (Char-wound Skin Appearance) Assessed -Temperature (Char-wound Skin No Abnormality Appearance) (Pt Warm) -Tenderness on Palpation (Char-wound No Skin Appearance) -Ulcer Cleansing Rinsed/ Irrigated with Saline -Foul Odor after Cleansing No -Anesthetic Used 4% Lidocaine Solution [Edema Assessment] -Lower Limb Edema Present Yes -Right Calf (cm) 45.5 -Right Ankle (cm) 30.2 -Left Calf (cm) 43.5 -Left Ankle (cm) 27.5 WC - Nurse 2 - General Ulcer CM Notes Start: 08/09/17 09:30 Freq: Status: Active Protocol: Activity Type Activity Date Activity User E-Sign Co-Sign Detail Recorded Client Recorded Date Recorded By Document 08/30/17 10:36 [id number] 08/30/17 10:37 08/30/17 10:36 Wound Center Nurse 2 [Procedure/Treatment] #6 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 INFERIOR -Time 10:36 -Correct Patient Yes -Correct Side, Site, Position Yes -Correct Procedure Yes -Procedure Performed Yes -Type of Procedure Debridement -Clinical Debridement Subcutaneous -Post Debridement Size (cm) - Length 2.8 -Post Debridement Size (cm) - Width 2.4 -Post Debridement Size (cm) - Depth 0.1 -Total Square Cm 6.72 -Wound/Ulcer Outcome Not Healed -Ulcer Cleansing Not Cleansed -Foul Odor after Cleansing No -Bioengineered Tissue No -Bleeding Controlled with NA -Treatment Response Procedure Tolerated Well #5 Left Lateral Leg superior CLUSTER -Time 10:36 -Correct Patient Yes -Correct Side, Site, Position Yes -Correct Procedure Yes -Procedure Performed Yes -Type of Procedure Debridement -Clinical Debridement Subcutaneous -Post Debridement Size (cm) - Length 1.8 -Post Debridement Size (cm) - Width 2.2 -Post Debridement Size (cm) - Depth 0.1 -Total Square Cm 3.96 -Wound/Ulcer Outcome Not Healed -Ulcer Cleansing Not Cleansed -Foul Odor after Cleansing No -Bioengineered Tissue No -Bleeding Controlled with NA -Treatment Response Procedure Tolerated Well [See Physician Procedure note for Specifics] Pain Scale: 0-10 Numeric [Pain] -Is Patient Pain Free? Yes Musculoskeletal: Tenderness - With manipulation of ulcer sites Neurological: Sensory exam intact to light touch and pain Psych/Mental Status: Normal Affect, Appropriate Debridement Note Post-Debridement Measurements/Treatment WC - Nurse 2 - General Ulcer CM Notes Start: 08/09/17 09:30 Freq: Status: Active Protocol: Activity Type Activity Date Activity User E-Sign Co-Sign Detail Recorded Client Recorded Date Recorded By Document 08/09/17 10:07 [email or web address] 08/09/17 10:08 Document 08/16/17 11:00 [id number] 08/16/17 11:08 Document 08/23/17 10:17 [id number] 08/23/17 10:29 Document 08/30/17 10:36 [id number] 08/30/17 10:37 08/09/17 08/16/17 08/23/17 10:07 11:00 10:17 Wound Center Nurse 2 #6 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 INFERIOR -Time 10:00 11:00 10:26 -Correct Patient Yes Yes Yes -Correct Side, Site, Position Yes Yes Yes -Correct Procedure Yes Yes Yes -Procedure Performed Yes Yes Yes -Type of Procedure Debridement Debridement Debridement -Clinical Debridement Subcutaneous Subcutaneous Subcutaneous -Post Debridement Size (cm) - Length 2.6 3.1 3.1 -Post Debridement Size (cm) - Width 2.6 2.5 2.9 -Post Debridement Size (cm) - Depth 0.1 0.5 0.1 -Total Square Cm 6.76 7.75 8.99 -Wound/Ulcer Outcome Not Healed Not Healed Not Healed -Ulcer Cleansing Not Cleansed Not Cleansed Not Cleansed -Foul Odor after Cleansing No No No -Bioengineered Tissue No No No -Bleeding Controlled with NA Pressure Pressure -Treatment Response Procedure Procedure Procedure Tolerated Well Tolerated Well Tolerated Well #5 Left Lateral Leg superior CLUSTER -Time 10:00 11:01 10:26 -Correct Patient Yes Yes Yes -Correct Side, Site, Position Yes Yes Yes -Correct Procedure Yes Yes Yes -Procedure Performed Yes Yes Yes -Type of Procedure Debridement Debridement Debridement -Clinical Debridement Subcutaneous Subcutaneous Subcutaneous -Post Debridement Size (cm) - Length 1.9 1.7 1 -Post Debridement Size (cm) - Width 3.4 2.4 2.4 -Post Debridement Size (cm) - Depth 0.2 0.1 0.1 -Total Square Cm 6.46 4.08 2.4 -Wound/Ulcer Outcome Not Healed Not Healed Not Healed -Ulcer Cleansing Not Cleansed Not Cleansed Not Cleansed -Foul Odor after Cleansing No No No -Bioengineered Tissue No No No -Bleeding Controlled with NA Pressure Pressure -Treatment Response Procedure Procedure Procedure Tolerated Well Tolerated Well Tolerated Well Pain Scale: 0-10 Numeric Is Patient Pain Free? Yes Yes Yes 08/30/17 10:36 Wound Center Nurse 2 #6 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 INFERIOR -Time 10:36 -Correct Patient Yes -Correct Side, Site, Position Yes -Correct Procedure Yes -Procedure Performed Yes -Type of Procedure Debridement -Clinical Debridement Subcutaneous -Post Debridement Size (cm) - Length 2.8 -Post Debridement Size (cm) - Width 2.4 -Post Debridement Size (cm) - Depth 0.1 -Total Square Cm 6.72 -Wound/Ulcer Outcome Not Healed -Ulcer Cleansing Not Cleansed -Foul Odor after Cleansing No -Bioengineered Tissue No -Bleeding Controlled with NA -Treatment Response Procedure Tolerated Well #5 Left Lateral Leg superior CLUSTER -Time 10:36 -Correct Patient Yes -Correct Side, Site, Position Yes -Correct Procedure Yes -Procedure Performed Yes -Type of Procedure Debridement -Clinical Debridement Subcutaneous -Post Debridement Size (cm) - Length 1.8 -Post Debridement Size (cm) - Width 2.2 -Post Debridement Size (cm) - Depth 0.1 -Total Square Cm 3.96 -Wound/Ulcer Outcome Not Healed -Ulcer Cleansing Not Cleansed -Foul Odor after Cleansing No -Bioengineered Tissue No -Bleeding Controlled with NA -Treatment Response Procedure Tolerated Well Pain Scale: 0-10 Numeric Is Patient Pain Free? Yes Wound debrided: Left lateral leg superior Laterality: Left Type of Debridement: Excisional debridement Anesthesia Used: 4% Lidocaine Solution Depth: in the subcutaneous layer Percentage of wound debrided: 100 Instrument Used: 5mm curette Tissue Removed: Adherent slough, fibrin, hyperkeratotic tissue Severity: Fat Layer Exposed Amount of bleeding with debridement: Mild Bleeding Controlled with: Pressure Patient tolerated procedure well - Additional Wound Wound debrided: Left lateral leg inferior Laterality: Left Type of Debridement: Excisional debridement Anesthesia Used: 4% Lidocaine Solution Depth: in the subcutaneous layer Percentage of wound debrided: 100 Instrument Used: 5mm curette Tissue Removed: Adherent slough, fibrin, hyperkeratotic tissue Severity: Fat Layer Exposed Amount of bleeding with debridement: Mild Bleeding Controlled with: Pressure Patient tolerated procedure: Patient tolerated procedure well Assessment/Plan Assessment: Ulcer to left lower leg with fat layer exposed. DM II. Lower extremity edema Plan: Patient was again examined and evaluated today. The aforementioned ulcers were again debrided subcutaneously as noted in the clinical panel. The ulcers have all improved again in appearance and depth since last visit again today. Once all of the ulcers were debrided and carefully cleansed, the ulcer sites were then dressed with aquacel ag, followed by a dry sterile dressing along with tubigrips followed by JASMINE wraps. The dressing is to be changed in this manner daily. She will do this with the help of family friend, her son, and home health. It was again discussed the importance of keeping the compression from the toes all the way up to the knee, as she says some of the home health did not have her jasmine wraps all the way down to the toes. She has not been fully compliant with this in the past. She was instrcuted on the importance of keeping pressure off of all of the ulcer sites at all times while seated. I again stressed the importance of compression with the patient's healing. She was instructed to wear the tubigrip and to keep her lower extremities elevated while seated. She is to continue with lasix as prescribed by Dr. Franco. I recommended a high-protein diet for this patient to supplement wound healing. Patient's insurance denied apligraf and puraply. Patient completed course of cephalexin with no complications. Patient was educated on all signs and symptoms of local and systemic infection, and was instructed to go to the ER immediately should she notice any. All other questions were answered to the patient's satisfaction. The patient will follow-up in clinic in 1 week to check on progress, or sooner if needed.
== END 2017-09-04 23:59 ==
LOC: WC 10:00
PROVIDERS: Family Provider Family Medicine Geriatric Medicine; PCP Family Medicine Geriatric Medicine; Visit Provider Podiatrist
DX: E11.622 Type 2 diabetes mellitus with other skin ulcer (principal); L97.822 Non-pressure chronic ulcer of other part of left lower leg with fat layer exposed; E11.22 Type 2 diabetes mellitus with diabetic chronic kidney disease; N17.9 Acute kidney failure, unspecified; R60.0 Localized edema; E11.51 Type 2 diabetes mellitus with diabetic peripheral angiopathy without gangrene; G35 Multiple sclerosis
CPT/HCPCS: 11042

== ENCOUNTER 2017-10-04 10:00 | Outpatient (RCR) | payer MEDICARE, SELFPAY ==
[2017-09-05 00:42] VITALS: BP 152/81; PULSE 74; RESP 18; TEMP 37.3
[2017-09-06 10:59] VITALS: BP 118/72; PULSE 67; RESP 18; TEMP 35.7
--- NOTE | 2017-09-06 11:24 | PN.PCM_ITS ---
(1) Ulcer of left lower extremity with fat layer exposed Status: Acute Current Visit: No Code(s): L97.922 - Non-pressure chronic ulcer of unspecified part of left lower leg with fat layer exposed (2) PVD (peripheral vascular disease) Status: Chronic Current Visit: No Code(s): I73.9 - Peripheral vascular disease, unspecified (3) Controlled diabetes mellitus Status: Chronic Current Visit: No Code(s): E11.9 - Type 2 diabetes mellitus without complications (4) Edema, lower extremity Status: Chronic Current Visit: No Code(s): R60.0 - Localized edema Type of Wound Date of Service: 09/06/17 Chief Complaint: Left anterior lower leg ulceration that will not heal. History of Wound: This 72 year old female has significant history of diabetes and multiple sclerosis, bilateral traumatic leg wounds, and other comorbidities. She presents to office today after being referred by Dr. Franco. Per his note, the patient had finished up a prescription for keflex and is on rocephin. Patient states that she recently got a new bed. She says since she is short she had to get a stool in order to get onto her bed. She fell on the stool and got an ulcer on the left anterior leg. She says this happed close to two weeks ago and has not seen much of an improvment since. She has been dressing the ulcer site with bacitracin. She denies any purulence, malodor, redness around the ulcer. She also denies any feelings of nausea, vomiting, fever, or chills currently. Progress of Wound: Patient presents for follow up today. Ulcers to her proximal left lower leg continue to show improvement. Patient says that on April 22 she fell off of her toilet and she had a laceration on her left anterior cabrera. She also had some hematoma formation to the left lateral leg as well as a continued left medial lower leg ulcer. Since the hematomas were debrided and removed, patient says she has been following the dressing changes as instructed as well as trying to keep compression over the area. She believes there continues to be slow improvement again this week. She says she has been taking her lasix. Patient says the areas around her toes have improved greatly since last week and she was able to finish her prescribed antibiotic without complication. She says she has been doing better with her compression this past week as well. She currently denies any feelings of nausea, vomiting, fever, or chills. - Physical Exam Vital Signs Temp Pulse Resp BP 96.3 F L 67 18 118/72 09/06/17 10:59 09/06/17 10:59 09/06/17 10:59 09/06/17 10:59 General: Alert, Oriented x3, Cooperative, No apparent distress Extremities: Capillary Refill Less than 3 Seconds, No Calf Tenderness - Negative Sunita and Abraham sign, Diminished Peripheral Pulses - DP and PT pulses nonpalpable due to lower extremity pitting edema, Edema - Bilateral pitting lower extremity edema Skin: Ulcer/ Wound - Ulcers noted with fat layer exposed to the proximal left lower leg. Measurements noted below. There continues to be slight improvement again noted this week. Patient remains a mixture of adherent slough, fibrin, granular tissue as well as some surrounding hyperkeratotic tissue. There continues to be no probing to bone, no tracking, no undermining, no purulence, no malodor, no extending cellulitis, and no increase in warmth appreciated at this time. Wound Measurements and Assessment WC - Nurse 1 - General Ulcer Measurement Start: 09/06/17 10:59 Freq: Status: Active Protocol: Activity Type Activity Date Activity User E-Sign Co-Sign Detail Recorded Client Recorded Date Recorded By Document 09/06/17 10:59 [id number] 09/06/17 11:03 09/06/17 10:59 Wound Center Nurse 1 [Ulcer Assessment] #6 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 INFERIOR -Combined with other wound No -Current Size (cm) - Length 2.6 -Current Size (cm) - Width 2.2 -Current Size (cm) - Depth 0.1 -Total Square Cm 5.72 -Photo Taken No -Epithelialization Small 1-33% -Tunneling No -Undermining/Tunneling No -Circular Undermining No -Classification - Thickness Full Thickness without Exposed Support Structure -Exudate Amt Small (1-33%) -Exudate Type Serosanguineous -Wound Margin Distinct, Outline Attached -Granulation Amt None Present (0 %) -Granulation Quality N/A -Slough/Fibrin Yes -Necrosis Amt Large (67-100%) -Necrotic Tissue Type Adherent Slough -Structure Exposed Fascia Fat Layer Exposed -Texture (Char-wound Skin Appearance) Assessed Localized Edema Scarring -Moisture (Char-wound Skin Appearance No Abnormality ) Assessed -Color (Char-wound Skin Appearance) No Abnormality Assessed -Temperature (Char-wound Skin No Abnormality Appearance) (Pt Warm) -Tenderness on Palpation (Char-wound No Skin Appearance) -Ulcer Cleansing Rinsed/ Irrigated with Saline -Foul Odor after Cleansing No -Anesthetic Used 4% Lidocaine Solution #5 Left Lateral Leg superior CLUSTER -Combined with other wound No -Current Size (cm) - Length 2.0 -Current Size (cm) - Width 2.2 -Current Size (cm) - Depth 0.1 -Total Square Cm 4.40 -Photo Taken No -Epithelialization Small 1-33% -Tunneling No -Undermining/Tunneling No -Circular Undermining No -Classification - Thickness Full Thickness without Exposed Support Structure -Exudate Amt Small (1-33%) -Exudate Type Serosanguineous -Wound Margin Distinct, Outline Attached -Granulation Amt Large (67-100%) -Granulation Quality [place] -Slough/Fibrin Yes -Necrosis Amt Small (1-33%) -Necrotic Tissue Type Adherent Slough -Structure Exposed Fascia Fat Layer Exposed -Texture (Char-wound Skin Appearance) Assessed Localized Edema Scarring -Moisture (Char-wound Skin Appearance No Abnormality ) Assessed -Color (Char-wound Skin Appearance) No Abnormality Assessed -Temperature (Char-wound Skin No Abnormality Appearance) (Pt Warm) -Tenderness on Palpation (Char-wound No Skin Appearance) -Ulcer Cleansing Rinsed/ Irrigated with Saline -Foul Odor after Cleansing No -Anesthetic Used 4% Lidocaine Solution [Edema Assessment] -Lower Limb Edema Present Yes -Right Calf (cm) 48.0 -Right Ankle (cm) 28.0 -Left Calf (cm) 36.0 -Left Ankle (cm) 25.5 WC - Nurse 2 - General Ulcer CM Notes Start: 09/06/17 10:59 Freq: Status: Active Protocol: Activity Type Activity Date Activity User E-Sign Co-Sign Detail Recorded Client Recorded Date Recorded By Document 09/06/17 11:10 [id number] 09/06/17 11:15 09/06/17 11:10 Wound Center Nurse 2 [Procedure/Treatment] #6 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 INFERIOR -Time 11:10 -Correct Patient Yes -Correct Side, Site, Position Yes -Correct Procedure Yes -Procedure Performed Yes -Type of Procedure Debridement -Clinical Debridement Subcutaneous -Post Debridement Size (cm) - Length 2.7 -Post Debridement Size (cm) - Width 2.4 -Post Debridement Size (cm) - Depth 0.1 -Total Square Cm 6.48 -Wound/Ulcer Outcome Not Healed -Ulcer Cleansing Not Cleansed -Foul Odor after Cleansing No -Bioengineered Tissue No -Bleeding Controlled with Pressure -Treatment Response Procedure Tolerated Well #5 Left Lateral Leg superior CLUSTER -Time 11:11 -Correct Patient Yes -Correct Side, Site, Position Yes -Correct Procedure Yes -Procedure Performed Yes -Type of Procedure Debridement -Clinical Debridement Subcutaneous -Post Debridement Size (cm) - Length 1.5 -Post Debridement Size (cm) - Width 2.0 -Post Debridement Size (cm) - Depth 0.1 -Total Square Cm 3.00 -Wound/Ulcer Outcome Not Healed -Ulcer Cleansing Not Cleansed -Foul Odor after Cleansing No -Bioengineered Tissue No -Bleeding Controlled with Pressure -Treatment Response Procedure Tolerated Well [See Physician Procedure note for Specifics] Pain Scale: 0-10 Numeric [Pain] -Is Patient Pain Free? Yes Musculoskeletal: Tenderness - With manipulation of ulcer sites Neurological: Sensory exam intact to light touch and pain Psych/Mental Status: Normal Affect, Appropriate Debridement Note Post-Debridement Measurements/Treatment WC - Nurse 2 - General Ulcer CM Notes Start: 09/06/17 10:59 Freq: Status: Active Protocol: Activity Type Activity Date Activity User E-Sign Co-Sign Detail Recorded Client Recorded Date Recorded By Document 09/06/17 11:10 [id number] 09/06/17 11:15 09/06/17 11:10 Wound Center Nurse 2 #6 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 INFERIOR -Time 11:10 -Correct Patient Yes -Correct Side, Site, Position Yes -Correct Procedure Yes -Procedure Performed Yes -Type of Procedure Debridement -Clinical Debridement Subcutaneous -Post Debridement Size (cm) - Length 2.7 -Post Debridement Size (cm) - Width 2.4 -Post Debridement Size (cm) - Depth 0.1 -Total Square Cm 6.48 -Wound/Ulcer Outcome Not Healed -Ulcer Cleansing Not Cleansed -Foul Odor after Cleansing No -Bioengineered Tissue No -Bleeding Controlled with Pressure -Treatment Response Procedure Tolerated Well #5 Left Lateral Leg superior CLUSTER -Time 11:11 -Correct Patient Yes -Correct Side, Site, Position Yes -Correct Procedure Yes -Procedure Performed Yes -Type of Procedure Debridement -Clinical Debridement Subcutaneous -Post Debridement Size (cm) - Length 1.5 -Post Debridement Size (cm) - Width 2.0 -Post Debridement Size (cm) - Depth 0.1 -Total Square Cm 3.00 -Wound/Ulcer Outcome Not Healed -Ulcer Cleansing Not Cleansed -Foul Odor after Cleansing No -Bioengineered Tissue No -Bleeding Controlled with Pressure -Treatment Response Procedure Tolerated Well Pain Scale: 0-10 Numeric Is Patient Pain Free? Yes Wound debrided: Left lateral leg superior Laterality: Left Type of Debridement: Excisional debridement Anesthesia Used: 4% Lidocaine Solution Depth: in the subcutaneous layer Percentage of wound debrided: 100 Instrument Used: 3mm curette Tissue Removed: Adherent slough, fibrin, hyperkeratotic tissue Severity: Fat Layer Exposed Amount of bleeding with debridement: Mild Bleeding Controlled with: Pressure Patient tolerated procedure well - Additional Wound Wound debrided: Left lateral leg inferior Laterality: Left Type of Debridement: Excisional debridement Anesthesia Used: 4% Lidocaine Solution Depth: in the subcutaneous layer Percentage of wound debrided: 100 Instrument Used: 3mm curette Tissue Removed: Adherent slough, fibrin, hyperkeratotic tissue Severity: Fat Layer Exposed Amount of bleeding with debridement: Mild Bleeding Controlled with: Pressure Patient tolerated procedure: Patient tolerated procedure well Assessment/Plan Assessment: Ulcer to left lower leg with fat layer exposed. DM II. Lower extremity edema Plan: Patient was again examined and evaluated today. The aforementioned ulcers were debrided subcutaneously as noted in the clinical panel again this week. There is slight improvement appreciated again this week. Once all of the ulcers were debrided and carefully cleansed, the ulcer sites were then dressed with aquacel ag, followed by a dry sterile dressing along with tubigrips followed by JASMINE wraps. The dressing is to be changed in this manner daily. She will do this with the help of family friend, her son, and home health. It was again discussed the importance of keeping the compression from the toes all the way up to the knee, as she says some of the home health did not have her jasmine wraps all the way down to the toes. She has not been fully compliant with this in the past. She was instrcuted on the importance of keeping pressure off of all of the ulcer sites at all times while seated. I again stressed the importance of compression with the patient's healing. She was instructed to wear the tubigrip and to keep her lower extremities elevated while seated. She is to continue with lasix as prescribed by Dr. Franco. I recommended a high- protein diet for this patient to supplement wound healing. Patient's insurance denied apligraf and puraply. Patient completed course of cephalexin with no complications. Patient was educated on all signs and symptoms of local and systemic infection, and was instructed to go to the ER immediately should she notice any. All other questions were answered to the patient's satisfaction. The patient will follow-up in clinic in 1 week to check on progress, or sooner if needed.
[2017-09-13 10:25] VITALS: BP 147/68; PULSE 68; RESP 18; TEMP 35.8
--- NOTE | 2017-09-13 11:42 | PCM.WC.PN ---
(1) Ulcer of left lower extremity with fat layer exposed Status: Acute Current Visit: No Code(s): L97.922 - Non-pressure chronic ulcer of unspecified part of left lower leg with fat layer exposed (2) PVD (peripheral vascular disease) Status: Chronic Current Visit: No Code(s): I73.9 - Peripheral vascular disease, unspecified (3) Controlled diabetes mellitus Status: Chronic Current Visit: No Code(s): E11.9 - Type 2 diabetes mellitus without complications (4) Edema, lower extremity Status: Chronic Current Visit: No Code(s): R60.0 - Localized edema Type of Wound Date of Service: 09/13/17 Chief Complaint: Left anterior lower leg ulceration that will not heal. History of Wound: This 72 year old female has significant history of diabetes and multiple sclerosis, bilateral traumatic leg wounds, and other comorbidities. She presents to office today after being referred by Dr. Franco. Per his note, the patient had finished up a prescription for keflex and is on rocephin. Patient states that she recently got a new bed. She says since she is short she had to get a stool in order to get onto her bed. She fell on the stool and got an ulcer on the left anterior leg. She says this happed close to two weeks ago and has not seen much of an improvment since. She has been dressing the ulcer site with bacitracin. She denies any purulence, malodor, redness around the ulcer. She also denies any feelings of nausea, vomiting, fever, or chills currently. Progress of Wound: Patient presents for follow up today. Ulcers to her proximal left lower leg continue to show improvement. Patient says that on April 22 she fell off of her toilet and she had a laceration on her left anterior cabrera. She also had some hematoma formation to the left lateral leg as well as a continued left medial lower leg ulcer. Since the hematomas were debrided and removed, patient says she has been following the dressing changes as instructed as well as trying to keep compression over the area. She believes there continues to be slow improvement again this week. She says she has been taking her lasix. Patient says the areas around her toes have improved greatly since last week and she was able to finish her prescribed antibiotic without complication. She continues to try to keep compression to her lower extremity as instructed. She currently denies any feelings of nausea, vomiting, fever, or chills. - Physical Exam Vital Signs Temp Pulse Resp BP 96.4 F L 68 18 147/68 H 09/13/17 10:25 09/13/17 10:25 09/13/17 10:25 09/13/17 10:25 General: Alert, Oriented x3, Cooperative, No apparent distress Extremities: Capillary Refill Less than 3 Seconds, No Calf Tenderness - Negative Sunita and Abraham sign, Diminished Peripheral Pulses - DP and PT pulses nonpalpable due to pitting lower extremity edema, Edema - Bilateral pitting lower extremity edema Skin: Ulcer/ Wound - Ulcers noted with fat layer exposed to the proximal left lower leg. Measurements noted below. There is another improvement noted to the ulcer sites again this week. The ulcer base remains to be a mixture of adherent slough, fibrin, granular tissue as well as some surrounding hyperkeratotic tissue. There continues to be no probing to bone, no tracking, no undermining, no purulence, no malodor, no extending cellulitis, and no increase in warmth appreciated at this time Wound Measurements and Assessment WC - Nurse 1 - General Ulcer Measurement Start: 09/06/17 10:59 Freq: Status: Active Protocol: Activity Type Activity Date Activity User E-Sign Co-Sign Detail Recorded Client Recorded Date Recorded By Document 09/13/17 10:25 [id number] 09/13/17 10:28 09/13/17 10:25 Wound Center Nurse 1 [Ulcer Assessment] #6 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 INFERIOR -Combined with other wound No -Current Size (cm) - Length 2.2 -Current Size (cm) - Width 2.2 -Current Size (cm) - Depth 0.1 -Total Square Cm 4.84 -Photo Taken No -Epithelialization Small 1-33% -Tunneling No -Undermining/Tunneling No -Circular Undermining No -Classification - Thickness Full Thickness without Exposed Support Structure -Exudate Amt Small (1-33%) -Exudate Type Serosanguineous -Wound Margin Distinct, Outline Attached -Granulation Amt Large (67-100%) -Granulation Quality Pale [place] -Slough/Fibrin Yes -Necrosis Amt Small (1-33%) -Necrotic Tissue Type Adherent Slough -Structure Exposed Fascia Fat Layer Exposed -Texture (Char-wound Skin Appearance) Assessed Localized Edema Scarring -Moisture (Char-wound Skin Appearance Assessed ) -Color (Char-wound Skin Appearance) No Abnormality Assessed -Temperature (Char-wound Skin No Abnormality Appearance) (Pt Warm) -Tenderness on Palpation (Char-wound No Skin Appearance) -Ulcer Cleansing Rinsed/ Irrigated with Saline -Foul Odor after Cleansing No -Anesthetic Used 5% Lidocaine Gel #5 Left Lateral Leg superior CLUSTER -Combined with other wound No -Current Size (cm) - Length 1.7 -Current Size (cm) - Width 2.0 -Current Size (cm) - Depth 0.1 -Total Square Cm 3.40 -Photo Taken No -Epithelialization Small 1-33% -Tunneling No -Undermining/Tunneling No -Circular Undermining No -Classification - Thickness Full Thickness without Exposed Support Structure -Exudate Amt Small (1-33%) -Exudate Type Serosanguineous -Wound Margin Distinct, Outline Attached -Granulation Amt Large (67-100%) -Granulation Quality Pale [place] -Slough/Fibrin Yes -Necrosis Amt Small (1-33%) -Necrotic Tissue Type Adherent Slough -Structure Exposed Fascia Fat Layer Exposed -Texture (Char-wound Skin Appearance) Localized Edema Scarring -Moisture (Char-wound Skin Appearance No Abnormality ) Assessed -Color (Char-wound Skin Appearance) No Abnormality Assessed -Temperature (Char-wound Skin No Abnormality Appearance) (Pt Warm) -Tenderness on Palpation (Char-wound No Skin Appearance) -Ulcer Cleansing Rinsed/ Irrigated with Saline -Foul Odor after Cleansing No -Anesthetic Used 5% Lidocaine Gel [Edema Assessment] -Lower Limb Edema Present Yes -Right Calf (cm) 38.5 -Right Ankle (cm) 28.0 -Left Calf (cm) 34.0 -Left Ankle (cm) 26.5 WC - Nurse 2 - General Ulcer CM Notes Start: 09/06/17 10:59 Freq: Status: Active Protocol: Activity Type Activity Date Activity User E-Sign Co-Sign Detail Recorded Client Recorded Date Recorded By Document 09/13/17 11:06 [id number] 09/13/17 11:08 09/13/17 11:06 Wound Center Nurse 2 [Procedure/Treatment] #6 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 INFERIOR -Time 11:06 -Correct Patient Yes -Correct Side, Site, Position Yes -Correct Procedure Yes -Procedure Performed Yes -Type of Procedure Debridement -Clinical Debridement Subcutaneous -Post Debridement Size (cm) - Length 2.0 -Post Debridement Size (cm) - Width 2.2 -Post Debridement Size (cm) - Depth 0.1 -Total Square Cm 4.40 -Wound/Ulcer Outcome Not Healed -Ulcer Cleansing Rinsed/ Irrigated with Saline -Foul Odor after Cleansing No -Bioengineered Tissue No -Bleeding Controlled with Pressure -Treatment Response Procedure Tolerated Well #5 Left Lateral Leg superior CLUSTER -Time 11:07 -Correct Patient Yes -Correct Side, Site, Position Yes -Correct Procedure Yes -Procedure Performed Yes -Type of Procedure Debridement -Clinical Debridement Subcutaneous -Post Debridement Size (cm) - Length 1.2 -Post Debridement Size (cm) - Width 1.9 -Post Debridement Size (cm) - Depth 0.1 -Total Square Cm 2.28 -Wound/Ulcer Outcome Not Healed -Ulcer Cleansing Rinsed/ Irrigated with Saline -Foul Odor after Cleansing No -Bioengineered Tissue No -Bleeding Controlled with Pressure -Treatment Response Procedure Tolerated Well [See Physician Procedure note for Specifics] Pain Scale: 0-10 Numeric [Pain] -Is Patient Pain Free? Yes Musculoskeletal: Tenderness - With manipulation of ulcer site Neurological: Sensory exam intact to light touch and pain Psych/Mental Status: Normal Affect, Appropriate Debridement Note Post-Debridement Measurements/Treatment WC - Nurse 2 - General Ulcer CM Notes Start: 09/06/17 10:59 Freq: Status: Active Protocol: Activity Type Activity Date Activity User E-Sign Co-Sign Detail Recorded Client Recorded Date Recorded By Document 09/06/17 11:10 [id number] 09/06/17 11:15 Document 09/13/17 11:06 [id number] 09/13/17 11:08 09/06/17 09/13/17 11:10 11:06 Wound Center Nurse 2 #6 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 INFERIOR -Time 11:10 11:06 -Correct Patient Yes Yes -Correct Side, Site, Position Yes Yes -Correct Procedure Yes Yes -Procedure Performed Yes Yes -Type of Procedure Debridement Debridement -Clinical Debridement Subcutaneous Subcutaneous -Post Debridement Size (cm) - Length 2.7 2.0 -Post Debridement Size (cm) - Width 2.4 2.2 -Post Debridement Size (cm) - Depth 0.1 0.1 -Total Square Cm 6.48 4.40 -Wound/Ulcer Outcome Not Healed Not Healed -Ulcer Cleansing Not Cleansed Rinsed/ Irrigated with Saline -Foul Odor after Cleansing No No -Bioengineered Tissue No No -Bleeding Controlled with Pressure Pressure -Treatment Response Procedure Procedure Tolerated Well Tolerated Well #5 Left Lateral Leg superior CLUSTER -Time 11:11 11:07 -Correct Patient Yes Yes -Correct Side, Site, Position Yes Yes -Correct Procedure Yes Yes -Procedure Performed Yes Yes -Type of Procedure Debridement Debridement -Clinical Debridement Subcutaneous Subcutaneous -Post Debridement Size (cm) - Length 1.5 1.2 -Post Debridement Size (cm) - Width 2.0 1.9 -Post Debridement Size (cm) - Depth 0.1 0.1 -Total Square Cm 3.00 2.28 -Wound/Ulcer Outcome Not Healed Not Healed -Ulcer Cleansing Not Cleansed Rinsed/ Irrigated with Saline -Foul Odor after Cleansing No No -Bioengineered Tissue No No -Bleeding Controlled with Pressure Pressure -Treatment Response Procedure Procedure Tolerated Well Tolerated Well Pain Scale: 0-10 Numeric Is Patient Pain Free? Yes Yes Wound debrided: Left lateral leg superior Laterality: Left Type of Debridement: Excisional debridement Anesthesia Used: 4% Lidocaine Solution Depth: in the subcutaneous layer Percentage of wound debrided: 100 Instrument Used: 3mm curette Tissue Removed: Adherent slough, fibrin, hyperkeratotic tissue Severity: Fat Layer Exposed Amount of bleeding with debridement: Mild Bleeding Controlled with: Pressure Patient tolerated procedure well - Additional Wound Wound debrided: Left lateral leg inferior Laterality: Left Type of Debridement: Excisional debridement Anesthesia Used: 4% Lidocaine Solution Depth: in the subcutaneous layer Percentage of wound debrided: 100 Instrument Used: 3mm curette Tissue Removed: Adherent slough, fibrin, hyperkeratotic tissue Severity: Fat Layer Exposed Amount of bleeding with debridement: Mild Bleeding Controlled with: Pressure Patient tolerated procedure: Patient tolerated procedure well Assessment/Plan Assessment: Ulcer to left lower leg with fat layer exposed. DM II. Lower extremity edema Plan: Patient was again examined and evaluated today. The aforementioned ulcers were debrided subcutaneously as noted in the clinical panel again this week. There is slight improvement appreciated again this week. Once all of the ulcers were debrided and carefully cleansed, the ulcer sites were then dressed with aquacel ag, followed by a dry sterile dressing along with tubigrips followed by JASMINE wraps. The dressing is to be changed in this manner daily. She will do this with the help of family friend, her son, and home health. It was again discussed the importance of keeping the compression from the toes all the way up to the knee, as she says some of the home health did not have her jasmine wraps all the way down to the toes. She has not been fully compliant with this in the past. She was instrcuted on the importance of keeping pressure off of all of the ulcer sites at all times while seated. I again stressed the importance of compression with the patient's healing. She was instructed to wear the tubigrip and to keep her lower extremities elevated while seated. She is to continue with lasix as prescribed by Dr. Franco. I recommended a high-protein diet for this patient to supplement wound healing. Patient's insurance denied apligraf and puraply. Patient completed course of cephalexin with no complications. Patient was educated on all signs and symptoms of local and systemic infection, and was instructed to go to the ER immediately should she notice any. All other questions were answered to the patient's satisfaction. She is having testing done later today by her urologist. The patient will follow-up in clinic in 1 week to check on progress, or sooner if needed.
[2017-09-20 10:34] VITALS: BP 122/60; PULSE 73; RESP 18; TEMP 36
--- NOTE | 2017-09-20 10:55 | PCM.WC.PN ---
(1) Ulcer of left lower extremity with fat layer exposed Status: Acute Current Visit: No Code(s): L97.922 - Non-pressure chronic ulcer of unspecified part of left lower leg with fat layer exposed (2) PVD (peripheral vascular disease) Status: Chronic Current Visit: No Code(s): I73.9 - Peripheral vascular disease, unspecified (3) Controlled diabetes mellitus Status: Chronic Current Visit: No Code(s): E11.9 - Type 2 diabetes mellitus without complications (4) Edema, lower extremity Status: Chronic Current Visit: No Code(s): R60.0 - Localized edema Type of Wound Date of Service: 09/20/17 Chief Complaint: Left anterior lower leg ulceration that will not heal. History of Wound: This 72 year old female has significant history of diabetes and multiple sclerosis, bilateral traumatic leg wounds, and other comorbidities. She presents to office today after being referred by Dr. Franco. Per his note, the patient had finished up a prescription for keflex and is on rocephin. Patient states that she recently got a new bed. She says since she is short she had to get a stool in order to get onto her bed. She fell on the stool and got an ulcer on the left anterior leg. She says this happed close to two weeks ago and has not seen much of an improvment since. She has been dressing the ulcer site with bacitracin. She denies any purulence, malodor, redness around the ulcer. She also denies any feelings of nausea, vomiting, fever, or chills currently. Progress of Wound: Patient presents for follow up today. Ulcers to her proximal left lower leg continue to show improvement. Patient says that on April 22 she fell off of her toilet and she had a laceration on her left anterior cabrera. She also had some hematoma formation to the left lateral leg as well as a continued left medial lower leg ulcer. Since the hematomas were debrided and removed, patient says she has been following the dressing changes as instructed as well as trying to keep compression over the area. She believes there continues to be slow improvement again this week. She says she has been taking her lasix. Patient says the areas around her toes have improved greatly since last week and she was able to finish her prescribed antibiotic without complication. She continues to try to keep compression to her lower extremity as instructed. She currently denies any feelings of nausea, vomiting, fever, or chills. - Physical Exam Vital Signs Temp Pulse Resp BP 96.8 F L 73 18 122/60 H 09/20/17 10:34 09/20/17 10:34 09/20/17 10:34 09/20/17 10:34 General: Alert, Oriented x3, Cooperative, No apparent distress Extremities: Capillary Refill Less than 3 Seconds, No Calf Tenderness - Negative Sunita and Abraham sign, Diminished Peripheral Pulses - DP and PT pulses nonpalpable due to the pitting lower extremity edema, Edema - Bilateral pitting lower extremity edema Skin: Ulcer/ Wound - Ulcers noted with fat layer exposed to proximal left lower leg. Measurements are noted below. Slight improvement again appreciated this week. The base of the ulcers remained to be a mixture of adherent slough, fibrin, granular tissue as well as some slight surrounding hyperkeratotic tissue. There is no probing to bone, no tracking, no undermining, no purulence, no malodor, no extending cellulitis, no increase in warmth appreciated at this time. Wound Measurements and Assessment WC - Nurse 1 - General Ulcer Measurement Start: 09/06/17 10:59 Freq: Status: Active Protocol: Activity Type Activity Date Activity User E-Sign Co-Sign Detail Recorded Client Recorded Date Recorded By Document 09/20/17 10:34 ANN [id number] 09/20/17 10:41 DL 09/20/17 10:34 Wound Center Nurse 1 [Ulcer Assessment] #6 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 INFERIOR -Current Size (cm) - Length 1.9 -Current Size (cm) - Width 1.8 -Current Size (cm) - Depth 0.1 -Total Square Cm 3.42 -Photo Taken No -Exudate Amt Medium (34-66%) -Exudate Type Serosanguineous -Wound Margin Distinct, Outline Attached -Granulation Amt Small (1-33%) -Granulation Quality [place] -Necrosis Amt Large (67-100%) -Necrotic Tissue Type Adherent Slough -Structure Exposed N/A -Texture (Char-wound Skin Appearance) Scarring -Moisture (Char-wound Skin Appearance No Abnormality ) -Color (Char-wound Skin Appearance) No Abnormality -Temperature (Char-wound Skin No Abnormality Appearance) (Pt Warm) -Ulcer Cleansing Rinsed/ Irrigated with Saline -Foul Odor after Cleansing No -Anesthetic Used 4% Lidocaine Solution #5 Left Lateral Leg superior CLUSTER -Current Size (cm) - Length 1 -Current Size (cm) - Width 1.8 -Current Size (cm) - Depth 0.1 -Total Square Cm 1.8 -Photo Taken No -Exudate Amt Small (1-33%) -Exudate Type Serosanguineous -Wound Margin Distinct, Outline Attached -Granulation Amt Small (1-33%) -Granulation Quality [place] -Necrosis Amt Large (67-100%) -Necrotic Tissue Type Adherent Slough -Structure Exposed N/A -Texture (Char-wound Skin Appearance) Scarring -Moisture (Char-wound Skin Appearance No Abnormality ) -Color (Char-wound Skin Appearance) No Abnormality -Temperature (Char-wound Skin No Abnormality Appearance) (Pt Warm) -Ulcer Cleansing Rinsed/ Irrigated with Saline -Foul Odor after Cleansing No -Anesthetic Used 4% Lidocaine Solution [Edema Assessment] -Right Calf (cm) 42 -Right Ankle (cm) 25.5 WC - Nurse 2 - General Ulcer CM Notes Start: 09/06/17 10:59 Freq: Status: Active Protocol: Activity Type Activity Date Activity User E-Sign Co-Sign Detail Recorded Client Recorded Date Recorded By Document 09/20/17 10:51 [id number] 09/20/17 10:53 09/20/17 10:51 Wound Center Nurse 2 [Procedure/Treatment] #6 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 INFERIOR -Time 10:51 -Correct Patient Yes -Correct Side, Site, Position Yes -Correct Procedure Yes -Procedure Performed Yes -Type of Procedure Debridement -Clinical Debridement Subcutaneous -Post Debridement Size (cm) - Length 2.0 -Post Debridement Size (cm) - Width 1.9 -Post Debridement Size (cm) - Depth 0.1 -Total Square Cm 3.80 -Wound/Ulcer Outcome Not Healed -Ulcer Cleansing Not Cleansed -Foul Odor after Cleansing No -Bioengineered Tissue No -Bleeding Controlled with Pressure -Treatment Response Procedure Tolerated Well #5 Left Lateral Leg superior CLUSTER -Time 10:51 -Correct Patient Yes -Correct Side, Site, Position Yes -Correct Procedure Yes -Procedure Performed Yes -Type of Procedure Debridement -Clinical Debridement Subcutaneous -Post Debridement Size (cm) - Length 1.0 -Post Debridement Size (cm) - Width 1.8 -Post Debridement Size (cm) - Depth 0.1 -Total Square Cm 1.80 -Wound/Ulcer Outcome Not Healed -Ulcer Cleansing Not Cleansed -Foul Odor after Cleansing No -Bioengineered Tissue No -Bleeding Controlled with Pressure -Treatment Response Procedure Tolerated Well [See Physician Procedure note for Specifics] Pain Scale: 0-10 Numeric [Pain] -Is Patient Pain Free? Yes Musculoskeletal: Tenderness - With manipulation of ulcer site Neurological: Sensory exam intact to light touch and pain Psych/Mental Status: Normal Affect, Appropriate Debridement Note Post-Debridement Measurements/Treatment WC - Nurse 2 - General Ulcer CM Notes Start: 09/06/17 10:59 Freq: Status: Active Protocol: Activity Type Activity Date Activity User E-Sign Co-Sign Detail Recorded Client Recorded Date Recorded By Document 09/06/17 11:10 [id number] 09/06/17 11:15 CS Document 09/13/17 11:06 [id number] 09/13/17 11:08 Document 09/20/17 10:51 [id number] 09/20/17 10:53 09/06/17 09/13/17 09/20/17 11:10 11:06 10:51 Wound Center Nurse 2 #6 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 INFERIOR -Time 11:10 11:06 10:51 -Correct Patient Yes Yes Yes -Correct Side, Site, Position Yes Yes Yes -Correct Procedure Yes Yes Yes -Procedure Performed Yes Yes Yes -Type of Procedure Debridement Debridement Debridement -Clinical Debridement Subcutaneous Subcutaneous Subcutaneous -Post Debridement Size (cm) - Length 2.7 2.0 2.0 -Post Debridement Size (cm) - Width 2.4 2.2 1.9 -Post Debridement Size (cm) - Depth 0.1 0.1 0.1 -Total Square Cm 6.48 4.40 3.80 -Wound/Ulcer Outcome Not Healed Not Healed Not Healed -Ulcer Cleansing Not Cleansed Rinsed/ Not Cleansed Irrigated with Saline -Foul Odor after Cleansing No No No -Bioengineered Tissue No No No -Bleeding Controlled with Pressure Pressure Pressure -Treatment Response Procedure Procedure Procedure Tolerated Well Tolerated Well Tolerated Well #5 Left Lateral Leg superior CLUSTER -Time 11:11 11:07 10:51 -Correct Patient Yes Yes Yes -Correct Side, Site, Position Yes Yes Yes -Correct Procedure Yes Yes Yes -Procedure Performed Yes Yes Yes -Type of Procedure Debridement Debridement Debridement -Clinical Debridement Subcutaneous Subcutaneous Subcutaneous -Post Debridement Size (cm) - Length 1.5 1.2 1.0 -Post Debridement Size (cm) - Width 2.0 1.9 1.8 -Post Debridement Size (cm) - Depth 0.1 0.1 0.1 -Total Square Cm 3.00 2.28 1.80 -Wound/Ulcer Outcome Not Healed Not Healed Not Healed -Ulcer Cleansing Not Cleansed Rinsed/ Not Cleansed Irrigated with Saline -Foul Odor after Cleansing No No No -Bioengineered Tissue No No No -Bleeding Controlled with Pressure Pressure Pressure -Treatment Response Procedure Procedure Procedure Tolerated Well Tolerated Well Tolerated Well Pain Scale: 0-10 Numeric Is Patient Pain Free? Yes Yes Yes Wound debrided: Left lateral leg superior Laterality: Left Type of Debridement: Excisional debridement Anesthesia Used: 4% Lidocaine Solution Depth: Down to and including healthy tissue, in the subcutaneous layer Percentage of wound debrided: 100 Instrument Used: 3mm curette Tissue Removed: Adherent slough, fibrin, hyperkeratotic tissue Severity: Fat Layer Exposed Amount of bleeding with debridement: Mild Bleeding Controlled with: Pressure Patient tolerated procedure well - Additional Wound Wound debrided: Left lateral leg inferior Laterality: Left Type of Debridement: Excisional debridement Anesthesia Used: 4% Lidocaine Solution Depth: Down to and including healthy tissue, in the subcutaneous layer Percentage of wound debrided: 100 Instrument Used: 3mm curette Tissue Removed: Adherent slough, fibrin, hyperkeratotic tissue Severity: Fat Layer Exposed Amount of bleeding with debridement: Mild Bleeding Controlled with: Pressure Patient tolerated procedure: Patient tolerated procedure well Assessment/Plan Assessment: Ulcer to left lower leg with fat layer exposed. DM II. Lower extremity edema Plan: Patient was again examined and evaluated today. The aforementioned ulcers were debrided subcutaneously as noted in the clinical panel again this week. Slight improvement again appreciated. Once all of the ulcers were debrided and carefully cleansed, the ulcer sites were then dressed with aquacel ag, followed by a dry sterile dressing along with tubigrips followed by JASMINE wraps. The dressing is to be changed in this manner daily. She will do this with the help of family friend, her son, and home health. It was again discussed the importance of keeping the compression from the toes all the way up to the knee. She has not been fully compliant with this in the past. She was instrcuted on the importance of keeping pressure off of all of the ulcer sites at all times while seated. I again stressed the importance of compression with the patient's healing. She was instructed to wear the tubigrip and to keep her lower extremities elevated while seated. She is to continue with lasix as prescribed by Dr. Franco. I recommended a high-protein diet for this patient to supplement wound healing. Patient's insurance denied apligraf and puraply. Patient was educated on all signs and symptoms of local and systemic infection, and was instructed to go to the ER immediately should she notice any. All other questions were answered to the patient's satisfaction. The patient will follow-up in clinic in 1 week to check on progress, or sooner if needed.
[2017-09-27 10:54] VITALS: BP 137/73; PULSE 68; RESP 16; TEMP 35.9
--- NOTE | 2017-09-27 13:52 | PCM.WC.PN ---
(1) Ulcer of left lower extremity with fat layer exposed Status: Acute Current Visit: No Code(s): L97.922 - Non-pressure chronic ulcer of unspecified part of left lower leg with fat layer exposed (2) PVD (peripheral vascular disease) Status: Chronic Current Visit: No Code(s): I73.9 - Peripheral vascular disease, unspecified (3) Controlled diabetes mellitus Status: Chronic Current Visit: No Code(s): E11.9 - Type 2 diabetes mellitus without complications (4) Edema, lower extremity Status: Chronic Current Visit: No Code(s): R60.0 - Localized edema (5) Ulcer of right lower extremity with fat layer exposed Status: Acute Current Visit: Yes Code(s): L97.912 - Non-pressure chronic ulcer of unspecified part of right lower leg with fat layer exposed Type of Wound Date of Service: 09/27/17 Chief Complaint: Left anterior lower leg ulceration that will not heal. History of Wound: This 72 year old female has significant history of diabetes and multiple sclerosis, bilateral traumatic leg wounds, and other comorbidities. She presents to office today after being referred by Dr. Franco. Per his note, the patient had finished up a prescription for keflex and is on rocephin. Patient states that she recently got a new bed. She says since she is short she had to get a stool in order to get onto her bed. She fell on the stool and got an ulcer on the left anterior leg. She says this happed close to two weeks ago and has not seen much of an improvment since. She has been dressing the ulcer site with bacitracin. She denies any purulence, malodor, redness around the ulcer. She also denies any feelings of nausea, vomiting, fever, or chills currently. Progress of Wound: Patient presents for follow up today. Ulcers to her proximal left lower leg continue to show improvement. Patient says that on April 22 she fell off of her toilet and she had a laceration on her left anterior cabrera. She also had some hematoma formation to the left lateral leg as well as a continued left medial lower leg ulcer. Since the hematomas were debrided and removed, patient says she has been following the dressing changes as instructed as well as trying to keep compression over the area. She believes there continues to be slow improvement again this week. Patient also states she has a new ulcer that just opened on the dorsal aspect of her right foot. She has been keeping the area dressed in the same manner as her left leg ulcers. She denies any signs of infection to the area. She says she has been taking her lasix. She continues to try to keep compression to her lower extremity as instructed. She currently denies any feelings of nausea, vomiting, fever, or chills. - Physical Exam Vital Signs Temp Pulse Resp BP 96.6 F L 68 16 137/73 H 09/27/17 10:54 09/27/17 10:54 09/27/17 10:54 09/27/17 10:54 General: Alert, Oriented x3, Cooperative, No apparent distress Extremities: Capillary Refill Less than 3 Seconds, No Calf Tenderness - Negative Sunita and Abraham sign bilateral, Diminished Peripheral Pulses - DP and PT pulses nonpalpable due to pitting lower extremity edema bilateral, Edema - Bilateral pitting lower extremity edema Skin: Ulcer/ Wound - Ulcers to the proximal left lower leg and new ulcer to the right dorsal foot with fat layer exposed. Measurements are noted below. Improvement again appreciated to the left lower leg ulcers. The base of each ulcer noted remains to be a mixture of adherent slough, fibrin, granular tissue as well as some slight surrounding hyperkeratotic tissue. Some slight hematoma was carefully removed from the right dorsal foot ulcer. There continues to be no probing to bone, no purulence, no malodor, no extending cellulitis, and no increase in warmth appreciated at this time to any of the ulcer sites. Slight amount of undermining appreciated to the right dorsal foot ulcer in all directions with 0.7 mm being the deepest at 9:00. Wound Measurements and Assessment - Nurse 1 - General Ulcer Measurement Start: 09/06/17 10:59 Freq: Status: Active Protocol: Activity Type Activity Date Activity User E-Sign Co-Sign Detail Recorded Client Recorded Date Recorded By Document 09/27/17 10:48 [id number] 09/27/17 10:54 09/27/17 10:48 Wound Center Nurse 1 [Ulcer Assessment] #7 RIGHT DORSAL FOOT -Combined with other wound No -Current Size (cm) - Length 0.8 -Current Size (cm) - Width 1.9 -Current Size (cm) - Depth 0.2 -Total Square Cm 1.52 -Photo Taken No -Epithelialization None Present -Tunneling No -Undermining/Tunneling No -Circular Undermining No -Granulation Amt None Present (0 %) -Granulation Quality N/A -Slough/Fibrin Yes -Necrosis Amt None Present (0 %) -Necrotic Tissue Type Adherent Slough -Structure Exposed None/Limited to Skin Breakdown -Texture (Char-wound Skin Appearance) Assessed Localized Edema -Moisture (Char-wound Skin Appearance No Abnormality ) Assessed -Color (Char-wound Skin Appearance) No Abnormality Assessed -Temperature (Char-wound Skin No Abnormality Appearance) (Pt Warm) -Tenderness on Palpation (Char-wound No Skin Appearance) -Ulcer Cleansing Rinsed/ Irrigated with Saline -Foul Odor after Cleansing No -Anesthetic Used 5% Lidocaine Gel #6 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 INFERIOR -Combined with other wound No -Current Size (cm) - Length 1.1 -Current Size (cm) - Width 0.9 -Current Size (cm) - Depth 0.1 -Total Square Cm 0.99 -Photo Taken No -Epithelialization Small 1-33% -Tunneling No -Undermining/Tunneling No -Temperature (Char-wound Skin No Abnormality Appearance) (Pt Warm) -Tenderness on Palpation (Char-wound No Skin Appearance) -Ulcer Cleansing Rinsed/ Irrigated with Saline -Foul Odor after Cleansing No -Anesthetic Used 5% Lidocaine Gel #5 Left Lateral Leg superior CLUSTER -Combined with other wound No -Current Size (cm) - Length 0.7 -Current Size (cm) - Width 0.8 -Current Size (cm) - Depth 0.1 -Total Square Cm 0.56 -Photo Taken No -Epithelialization Small 1-33% -Tunneling No -Undermining/Tunneling No -Circular Undermining No -Temperature (Char-wound Skin No Abnormality Appearance) (Pt Warm) -Tenderness on Palpation (Char-wound No Skin Appearance) -Ulcer Cleansing Rinsed/ Irrigated with Saline -Foul Odor after Cleansing No -Anesthetic Used 5% Lidocaine Gel [Edema Assessment] -Lower Limb Edema Present Yes WC - Nurse 2 - General Ulcer CM Notes Start: 09/06/17 10:59 Freq: Status: Active Protocol: Activity Type Activity Date Activity User E-Sign Co-Sign Detail Recorded Client Recorded Date Recorded By Document 09/27/17 11:00 [id number] 09/27/17 11:12 09/27/17 11:00 Wound Center Nurse 2 [Procedure/Treatment] #7 RIGHT DORSAL FOOT -Time 11:04 -Correct Patient Yes -Correct Side, Site, Position Yes -Correct Procedure Yes -Procedure Performed Yes -Type of Procedure Debridement -Clinical Debridement Subcutaneous -Post Debridement Size (cm) - Length 0.9 -Post Debridement Size (cm) - Width 1.8 -Post Debridement Size (cm) - Depth 0.4 -Total Square Cm 1.62 -Wound/Ulcer Outcome Not Healed -Ulcer Cleansing Not Cleansed -Foul Odor after Cleansing No -Bioengineered Tissue No -Bleeding Controlled with Pressure -Treatment Response Procedure Tolerated Well #6 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 INFERIOR -Time 11:04 -Correct Patient Yes -Correct Side, Site, Position Yes -Correct Procedure Yes -Procedure Performed Yes -Type of Procedure Debridement -Clinical Debridement Subcutaneous -Post Debridement Size (cm) - Length 1.8 -Post Debridement Size (cm) - Width 1.4 -Post Debridement Size (cm) - Depth 0.1 -Total Square Cm 2.52 -Wound/Ulcer Outcome Not Healed -Ulcer Cleansing Not Cleansed -Foul Odor after Cleansing No -Bioengineered Tissue No -Bleeding Controlled with NA -Treatment Response Procedure Tolerated Well #5 Left Lateral Leg superior CLUSTER -Time 11:04 -Correct Patient Yes -Correct Side, Site, Position Yes -Correct Procedure Yes -Procedure Performed Yes -Type of Procedure Debridement -Clinical Debridement Subcutaneous -Post Debridement Size (cm) - Length 0.6 -Post Debridement Size (cm) - Width 1.1 -Post Debridement Size (cm) - Depth 0.1 -Total Square Cm 0.66 -Wound/Ulcer Outcome Not Healed -Ulcer Cleansing Not Cleansed -Foul Odor after Cleansing No -Bioengineered Tissue No -Bleeding Controlled with NA -Treatment Response Procedure Tolerated Well [See Physician Procedure note for Specifics] Pain Scale: 0-10 Numeric [Pain] -Is Patient Pain Free? No Musculoskeletal: Tenderness - With manipulation of ulcer sites Neurological: Sensory exam intact to light touch and pain Psych/Mental Status: Normal Affect, Appropriate Debridement Note Post-Debridement Measurements/Treatment WC - Nurse 2 - General Ulcer CM Notes Start: 09/06/17 10:59 Freq: Status: Active Protocol: Activity Type Activity Date Activity User E-Sign Co-Sign Detail Recorded Client Recorded Date Recorded By Document 09/06/17 11:10 [id number] 09/06/17 11:15 Document 09/13/17 11:06 [id number] 09/13/17 11:08 Document 09/20/17 10:51 [id number] 09/20/17 10:53 CS Document 09/27/17 11:00 [id number] 09/27/17 11:12 09/06/17 09/13/17 09/20/17 11:10 11:06 10:51 Wound Center Nurse 2 #7 RIGHT DORSAL FOOT -Time -Correct Patient -Correct Side, Site, Position -Correct Procedure -Procedure Performed -Type of Procedure -Clinical Debridement -Post Debridement Size (cm) - Length -Post Debridement Size (cm) - Width -Post Debridement Size (cm) - Depth -Total Square Cm -Wound/Ulcer Outcome -Ulcer Cleansing -Foul Odor after Cleansing -Bioengineered Tissue -Bleeding Controlled with -Treatment Response #6 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 INFERIOR -Time 11:10 11:06 10:51 -Correct Patient Yes Yes Yes -Correct Side, Site, Position Yes Yes Yes -Correct Procedure Yes Yes Yes -Procedure Performed Yes Yes Yes -Type of Procedure Debridement Debridement Debridement -Clinical Debridement Subcutaneous Subcutaneous Subcutaneous -Post Debridement Size (cm) - Length 2.7 2.0 2.0 -Post Debridement Size (cm) - Width 2.4 2.2 1.9 -Post Debridement Size (cm) - Depth 0.1 0.1 0.1 -Total Square Cm 6.48 4.40 3.80 -Wound/Ulcer Outcome Not Healed Not Healed Not Healed -Ulcer Cleansing Not Cleansed Rinsed/ Not Cleansed Irrigated with Saline -Foul Odor after Cleansing No No No -Bioengineered Tissue No No No -Bleeding Controlled with Pressure Pressure Pressure -Treatment Response Procedure Procedure Procedure Tolerated Well Tolerated Well Tolerated Well #5 Left Lateral Leg superior CLUSTER -Time 11:11 11:07 10:51 -Correct Patient Yes Yes Yes -Correct Side, Site, Position Yes Yes Yes -Correct Procedure Yes Yes Yes -Procedure Performed Yes Yes Yes -Type of Procedure Debridement Debridement Debridement -Clinical Debridement Subcutaneous Subcutaneous Subcutaneous -Post Debridement Size (cm) - Length 1.5 1.2 1.0 -Post Debridement Size (cm) - Width 2.0 1.9 1.8 -Post Debridement Size (cm) - Depth 0.1 0.1 0.1 -Total Square Cm 3.00 2.28 1.80 -Wound/Ulcer Outcome Not Healed Not Healed Not Healed -Ulcer Cleansing Not Cleansed Rinsed/ Not Cleansed Irrigated with Saline -Foul Odor after Cleansing No No No -Bioengineered Tissue No No No -Bleeding Controlled with Pressure Pressure Pressure -Treatment Response Procedure Procedure Procedure Tolerated Well Tolerated Well Tolerated Well Pain Scale: 0-10 Numeric Is Patient Pain Free? Yes Yes Yes 09/27/17 11:00 Wound Center Nurse 2 #7 RIGHT DORSAL FOOT -Time 11:04 -Correct Patient Yes -Correct Side, Site, Position Yes -Correct Procedure Yes -Procedure Performed Yes -Type of Procedure Debridement -Clinical Debridement Subcutaneous -Post Debridement Size (cm) - Length 0.9 -Post Debridement Size (cm) - Width 1.8 -Post Debridement Size (cm) - Depth 0.4 -Total Square Cm 1.62 -Wound/Ulcer Outcome Not Healed -Ulcer Cleansing Not Cleansed -Foul Odor after Cleansing No -Bioengineered Tissue No -Bleeding Controlled with Pressure -Treatment Response Procedure Tolerated Well #6 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 INFERIOR -Time 11:04 -Correct Patient Yes -Correct Side, Site, Position Yes -Correct Procedure Yes -Procedure Performed Yes -Type of Procedure Debridement -Clinical Debridement Subcutaneous -Post Debridement Size (cm) - Length 1.8 -Post Debridement Size (cm) - Width 1.4 -Post Debridement Size (cm) - Depth 0.1 -Total Square Cm 2.52 -Wound/Ulcer Outcome Not Healed -Ulcer Cleansing Not Cleansed -Foul Odor after Cleansing No -Bioengineered Tissue No -Bleeding Controlled with NA -Treatment Response Procedure Tolerated Well #5 Left Lateral Leg superior CLUSTER -Time 11:04 -Correct Patient Yes -Correct Side, Site, Position Yes -Correct Procedure Yes -Procedure Performed Yes -Type of Procedure Debridement -Clinical Debridement Subcutaneous -Post Debridement Size (cm) - Length 0.6 -Post Debridement Size (cm) - Width 1.1 -Post Debridement Size (cm) - Depth 0.1 -Total Square Cm 0.66 -Wound/Ulcer Outcome Not Healed -Ulcer Cleansing Not Cleansed -Foul Odor after Cleansing No -Bioengineered Tissue No -Bleeding Controlled with NA -Treatment Response Procedure Tolerated Well Pain Scale: 0-10 Numeric Is Patient Pain Free? No Wound debrided: Left lateral leg superior Laterality: Left Type of Debridement: Excisional debridement Anesthesia Used: 4% Lidocaine Solution Depth: Down to and including healthy tissue, in the subcutaneous layer Percentage of wound debrided: 100 Instrument Used: 3mm curette Tissue Removed: Adherent slough, fibrin, hyperkeratotic tissue Severity: Fat Layer Exposed Amount of bleeding with debridement: Mild Bleeding Controlled with: Pressure Patient tolerated procedure well - Additional Wound Wound debrided: Left lateral leg inferior Laterality: Left Type of Debridement: Excisional debridement Anesthesia Used: 4% Lidocaine Solution Depth: Down to and including healthy tissue, in the subcutaneous layer Percentage of wound debrided: 100 Instrument Used: 3mm curette Tissue Removed: Adherent slough, fibrin, hyperkeratotic tissue Severity: Fat Layer Exposed Amount of bleeding with debridement: Mild Bleeding Controlled with: Pressure Patient tolerated procedure: Patient tolerated procedure well - Additional Wound Wound debrided: Right dorsal foot Laterality: Right Type of Debridement: Excisional debridement Anesthesia Used: 4% Lidocaine Solution Depth: in the subcutaneous layer Percentage of wound debrided: 100 Instrument Used: 3mm curette Tissue Removed: Adherent slough, fibrin, hyperkeratotic tissue, hematoma Severity: Fat Layer Exposed Amount of bleeding with debridement: Mild Bleeding Controlled with: Pressure Patient tolerated procedure: Patient tolerated procedure well Assessment/Plan Active Problems (Last Reviewed 05/23/17 @ 15:40 by Lisa Hutton) Ulcer of right lower extremity with fat layer exposed (Acute) Assessment: Ulcer to left lower leg with fat layer exposed. DM II. Lower extremity edema Plan: Patient was again examined and evaluated today. The three aforementioned ulcers were all debrided subcutaneously as noted in the clinical panel again this week. Slight improvement again appreciated to the left leg ulcer sites. New ulcer open to right dorsal foot. Once all of the ulcers were debrided and carefully cleansed, the ulcer sites were then dressed with aquacel ag, followed by a dry sterile dressing along with tubigrips followed by JASMINE wraps. The dressing is to be changed in this manner daily. She will do this with the help of family friend, her son, and home health. It was again discussed the importance of keeping the compression from the toes all the way up to the knee. She has not been fully compliant with this in the past. She was instrcuted on the importance of keeping pressure off of all of the ulcer sites at all times while seated. I again stressed the importance of compression with the patient's healing. She was instructed to wear the tubigrip and to keep her lower extremities elevated while seated. She is to continue with lasix as prescribed by Dr. Franco. I recommended a high-protein diet for this patient to supplement wound healing. Patient's insurance denied apligraf and puraply. Patient was educated on all signs and symptoms of local and systemic infection, and was instructed to go to the ER immediately should she notice any. All other questions were answered to the patient's satisfaction. The patient will follow-up in clinic in 1 week to check on progress, or sooner if needed.
[2017-10-04 11:07] VITALS: BP 128/53; PULSE 68; RESP 18; TEMP 35.7
--- NOTE | 2017-10-04 14:13 | PN.PCM_ITS ---
(1) Ulcer of left lower extremity with fat layer exposed Status: Acute Current Visit: No Code(s): L97.922 - Non-pressure chronic ulcer of unspecified part of left lower leg with fat layer exposed (2) PVD (peripheral vascular disease) Status: Chronic Current Visit: No Code(s): I73.9 - Peripheral vascular disease, unspecified (3) Controlled diabetes mellitus Status: Chronic Current Visit: No Code(s): E11.9 - Type 2 diabetes mellitus without complications (4) Edema, lower extremity Status: Chronic Current Visit: No Code(s): R60.0 - Localized edema (5) Ulcer of right lower extremity with fat layer exposed Status: Acute Current Visit: Yes Code(s): L97.912 - Non-pressure chronic ulcer of unspecified part of right lower leg with fat layer exposed Type of Wound Date of Service: 10/04/17 Chief Complaint: Left anterior lower leg ulceration that will not heal. History of Wound: This 72 year old female has significant history of diabetes and multiple sclerosis, bilateral traumatic leg wounds, and other comorbidities. She presents to office today after being referred by Dr. Franco. Per his note, the patient had finished up a prescription for keflex and is on rocephin. Patient states that she recently got a new bed. She says since she is short she had to get a stool in order to get onto her bed. She fell on the stool and got an ulcer on the left anterior leg. She says this happed close to two weeks ago and has not seen much of an improvment since. She has been dressing the ulcer site with bacitracin. She denies any purulence, malodor, redness around the ulcer. She also denies any feelings of nausea, vomiting, fever, or chills currently. Progress of Wound: Patient presents for follow up today. Ulcers to her proximal left lower leg continue to show improvement. Patient says that on April 22 she fell off of her toilet and she had a laceration on her left anterior cabrera. She also had some hematoma formation to the left lateral leg as well as a continued left medial lower leg ulcer. Since the hematomas were debrided and removed, patient says she has been following the dressing changes as instructed as well as trying to keep compression over the area. She believes there continues to be slow improvement again this week. Patient is also being seen for her right dorsal foot ulcer that she has been treating in the same manner as her left lower leg ulcers. She denies any signs of infection to the area. She says she has been taking her lasix. She continues to try to keep compression to her lower extremity as instructed. She currently denies any feelings of nausea, vomiting, fever, or chills. - Physical Exam Vital Signs Temp Pulse Resp BP 96.3 F L 68 18 128/53 H 10/04/17 11:07 10/04/17 11:07 10/04/17 11:07 10/04/17 11:07 General: Alert, Oriented x3, Cooperative, No apparent distress Extremities: Capillary Refill Less than 3 Seconds, No Calf Tenderness - Negative Sunita and Abraham sign, Diminished Peripheral Pulses - DP and PT pulses nonpalpable due to pitting lower extremity edema bilateral, Edema - Bilateral pitting lower extremity edema Skin: Ulcer/ Wound - Ulcers to proximal left lower leg and right dorsal foot with fat layer exposed. Measurements are noted below. Slight improvement again appreciated to each of the ulcer sites. The bases of the ulcers are noted to be a mixture of adherent slough, fibrin, granular tissue as well as some slight surrounding hyperkeratotic tissue. There continues to be no probing to bone, no tracking, no undermining, no purulence, no malodor, no extending cellulitis, and no increase in warmth to any of the ulcer sites at this time. Wound Measurements and Assessment WC - Nurse 1 - General Ulcer Measurement Start: 09/06/17 10:59 Freq: Status: Active Protocol: Activity Type Activity Date Activity User E-Sign Co-Sign Detail Recorded Client Recorded Date Recorded By Document 10/04/17 11:07 [id number] 10/04/17 11:16 10/04/17 11:07 Wound Center Nurse 1 [Ulcer Assessment] #7 RIGHT DORSAL FOOT -Combined with other wound No -Photo Taken No -Epithelialization Small 1-33% -Tunneling No -Undermining/Tunneling No -Circular Undermining No -Classification - Thickness Full Thickness without Exposed Support Structure -Exudate Amt Small (1-33%) -Exudate Type Serosanguineous -Wound Margin Distinct, Outline Attached -Granulation Amt None Present (0 %) -Granulation Quality N/A -Slough/Fibrin Yes -Necrosis Amt Large (67-100%) -Necrotic Tissue Type Adherent Slough -Structure Exposed Fascia Fat Layer Exposed -Texture (Char-wound Skin Appearance) Assessed Friable Localized Edema Scarring -Moisture (Char-wound Skin Appearance No Abnormality ) Assessed -Color (Char-wound Skin Appearance) Assessed Erythema -Temperature (Char-wound Skin No Abnormality Appearance) (Pt Warm) -Tenderness on Palpation (Char-wound No Skin Appearance) -Ulcer Cleansing Rinsed/ Irrigated with Saline -Foul Odor after Cleansing No -Anesthetic Used 5% Lidocaine Gel #6 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 INFERIOR -Combined with other wound No -Current Size (cm) - Length 4.1 -Current Size (cm) - Width 1.4 -Current Size (cm) - Depth 0.1 -Total Square Cm 5.74 -Photo Taken No -Epithelialization Small 1-33% -Tunneling No -Undermining/Tunneling No -Circular Undermining No -Classification - Thickness Full Thickness without Exposed Support Structure -Exudate Amt Small (1-33%) -Exudate Type Serosanguineous -Wound Margin Distinct, Outline Attached -Granulation Amt Medium (34-66%) -Granulation Quality Red -Slough/Fibrin Yes -Necrosis Amt Medium (34-66%) -Necrotic Tissue Type Adherent Slough -Structure Exposed Fascia Fat Layer Exposed -Texture (Char-wound Skin Appearance) Assessed Friable Localized Edema Scarring -Moisture (Char-wound Skin Appearance No Abnormality ) Assessed -Color (Char-wound Skin Appearance) Assessed Erythema Hemosiderin Staining -Temperature (Char-wound Skin No Abnormality Appearance) (Pt Warm) -Tenderness on Palpation (Char-wound No Skin Appearance) -Ulcer Cleansing Rinsed/ Irrigated with Saline -Foul Odor after Cleansing No -Anesthetic Used 5% Lidocaine Gel #5 Left Lateral Leg superior CLUSTER -Combined with other wound No -Current Size (cm) - Length 0.5 -Current Size (cm) - Width 0.6 -Current Size (cm) - Depth 0.1 -Total Square Cm 0.30 -Photo Taken No -Epithelialization Small 1-33% -Tunneling No -Undermining/Tunneling No -Circular Undermining No -Classification - Thickness Full Thickness without Exposed Support Structure -Exudate Amt Small (1-33%) -Exudate Type Serosanguineous -Wound Margin Distinct, Outline Attached -Granulation Amt Large (67-100%) -Granulation Quality Red -Slough/Fibrin Yes -Necrosis Amt Small (1-33%) -Necrotic Tissue Type Adherent Slough -Structure Exposed Fascia Fat Layer Exposed -Texture (Char-wound Skin Appearance) Assessed Localized Edema Scarring -Moisture (Char-wound Skin Appearance Assessed ) Dry/Scaly -Color (Char-wound Skin Appearance) Assessed Erythema -Temperature (Char-wound Skin No Abnormality Appearance) (Pt Warm) -Tenderness on Palpation (Char-wound No Skin Appearance) -Ulcer Cleansing Rinsed/ Irrigated with Saline -Foul Odor after Cleansing No -Anesthetic Used 5% Lidocaine Gel [Edema Assessment] -Lower Limb Edema Present Yes -Right Calf (cm) 46.8 -Right Ankle (cm) 29.6 -Left Calf (cm) 44.0 -Left Ankle (cm) 25.9 WC - Nurse 2 - General Ulcer CM Notes Start: 09/06/17 10:59 Freq: Status: Active Protocol: Activity Type Activity Date Activity User E-Sign Co-Sign Detail Recorded Client Recorded Date Recorded By Document 10/04/17 11:27 [id number] 10/04/17 11:30 10/04/17 11:27 Wound Center Nurse 2 [Procedure/Treatment] #7 RIGHT DORSAL FOOT -Time 11:28 -Correct Patient Yes -Correct Side, Site, Position Yes -Correct Procedure Yes -Procedure Performed Yes -Type of Procedure Debridement -Clinical Debridement Subcutaneous -Post Debridement Size (cm) - Length 1 -Post Debridement Size (cm) - Width 1.8 -Post Debridement Size (cm) - Depth 0.3 -Total Square Cm 1.8 -Wound/Ulcer Outcome Not Healed -Ulcer Cleansing Not Cleansed -Foul Odor after Cleansing No -Bioengineered Tissue No -Bleeding Controlled with Pressure -Treatment Response Procedure Tolerated Well #6 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 INFERIOR -Time 11:28 -Correct Patient Yes -Correct Side, Site, Position Yes -Correct Procedure Yes -Procedure Performed Yes -Type of Procedure Debridement -Clinical Debridement Subcutaneous -Post Debridement Size (cm) - Length 0.9 -Post Debridement Size (cm) - Width 1.2 -Post Debridement Size (cm) - Depth 0.1 -Total Square Cm 1.08 -Wound/Ulcer Outcome Not Healed -Ulcer Cleansing Not Cleansed -Foul Odor after Cleansing No -Bioengineered Tissue No -Bleeding Controlled with NA -Treatment Response Procedure Tolerated Well #5 Left Lateral Leg superior CLUSTER -Time 11:28 -Correct Patient Yes -Correct Side, Site, Position Yes -Correct Procedure Yes -Procedure Performed Yes -Type of Procedure Debridement -Clinical Debridement Subcutaneous -Post Debridement Size (cm) - Length 0.5 -Post Debridement Size (cm) - Width 0.7 -Post Debridement Size (cm) - Depth 0.1 -Total Square Cm 0.35 -Wound/Ulcer Outcome Not Healed -Ulcer Cleansing Not Cleansed -Foul Odor after Cleansing No -Bioengineered Tissue No -Bleeding Controlled with Pressure -Treatment Response Procedure Tolerated Well [See Physician Procedure note for Specifics] Pain Scale: 0-10 Numeric [Pain] -Is Patient Pain Free? Yes Musculoskeletal: Tenderness - With manipulation of ulcer sites Neurological: Sensory exam intact to light touch and pain Psych/Mental Status: Normal Affect, Appropriate Debridement Note Post-Debridement Measurements/Treatment WC - Nurse 2 - General Ulcer CM Notes Start: 09/06/17 10:59 Freq: Status: Active Protocol: Activity Type Activity Date Activity User E-Sign Co-Sign Detail Recorded Client Recorded Date Recorded By Document 09/06/17 11:10 [id number] 09/06/17 11:15 CS Document 09/13/17 11:06 [id number] 09/13/17 11:08 CS Document 09/20/17 10:51 [id number] 09/20/17 10:53 CS Document 09/27/17 11:00 [id number] 09/27/17 11:12 CS Document 10/04/17 11:27 [id number] 10/04/17 11:30 CS 09/06/17 09/13/17 09/20/17 11:10 11:06 10:51 Wound Center Nurse 2 #7 RIGHT DORSAL FOOT -Time -Correct Patient -Correct Side, Site, Position -Correct Procedure -Procedure Performed -Type of Procedure -Clinical Debridement -Post Debridement Size (cm) - Length -Post Debridement Size (cm) - Width -Post Debridement Size (cm) - Depth -Total Square Cm -Wound/Ulcer Outcome -Ulcer Cleansing -Foul Odor after Cleansing -Bioengineered Tissue -Bleeding Controlled with -Treatment Response #6 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 INFERIOR -Time 11:10 11:06 10:51 -Correct Patient Yes Yes Yes -Correct Side, Site, Position Yes Yes Yes -Correct Procedure Yes Yes Yes -Procedure Performed Yes Yes Yes -Type of Procedure Debridement Debridement Debridement -Clinical Debridement Subcutaneous Subcutaneous Subcutaneous -Post Debridement Size (cm) - Length 2.7 2.0 2.0 -Post Debridement Size (cm) - Width 2.4 2.2 1.9 -Post Debridement Size (cm) - Depth 0.1 0.1 0.1 -Total Square Cm 6.48 4.40 3.80 -Wound/Ulcer Outcome Not Healed Not Healed Not Healed -Ulcer Cleansing Not Cleansed Rinsed/ Not Cleansed Irrigated with Saline -Foul Odor after Cleansing No No No -Bioengineered Tissue No No No -Bleeding Controlled with Pressure Pressure Pressure -Treatment Response Procedure Procedure Procedure Tolerated Well Tolerated Well Tolerated Well #5 Left Lateral Leg superior CLUSTER -Time 11:11 11:07 10:51 -Correct Patient Yes Yes Yes -Correct Side, Site, Position Yes Yes Yes -Correct Procedure Yes Yes Yes -Procedure Performed Yes Yes Yes -Type of Procedure Debridement Debridement Debridement -Clinical Debridement Subcutaneous Subcutaneous Subcutaneous -Post Debridement Size (cm) - Length 1.5 1.2 1.0 -Post Debridement Size (cm) - Width 2.0 1.9 1.8 -Post Debridement Size (cm) - Depth 0.1 0.1 0.1 -Total Square Cm 3.00 2.28 1.80 -Wound/Ulcer Outcome Not Healed Not Healed Not Healed -Ulcer Cleansing Not Cleansed Rinsed/ Not Cleansed Irrigated with Saline -Foul Odor after Cleansing No No No -Bioengineered Tissue No No No -Bleeding Controlled with Pressure Pressure Pressure -Treatment Response Procedure Procedure Procedure Tolerated Well Tolerated Well Tolerated Well Pain Scale: 0-10 Numeric Is Patient Pain Free? Yes Yes Yes 18 10/04/17 11:00 11:27 Wound Center Nurse 2 #7 RIGHT DORSAL FOOT -Time 11:04 11:28 -Correct Patient Yes Yes -Correct Side, Site, Position Yes Yes -Correct Procedure Yes Yes -Procedure Performed Yes Yes -Type of Procedure Debridement Debridement -Clinical Debridement Subcutaneous Subcutaneous -Post Debridement Size (cm) - Length 0.9 1 -Post Debridement Size (cm) - Width 1.8 1.8 -Post Debridement Size (cm) - Depth 0.4 0.3 -Total Square Cm 1.62 1.8 -Wound/Ulcer Outcome Not Healed Not Healed -Ulcer Cleansing Not Cleansed Not Cleansed -Foul Odor after Cleansing No No -Bioengineered Tissue No No -Bleeding Controlled with Pressure Pressure -Treatment Response Procedure Procedure Tolerated Well Tolerated Well #6 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 INFERIOR -Time 11:04 11:28 -Correct Patient Yes Yes -Correct Side, Site, Position Yes Yes -Correct Procedure Yes Yes -Procedure Performed Yes Yes -Type of Procedure Debridement Debridement -Clinical Debridement Subcutaneous Subcutaneous -Post Debridement Size (cm) - Length 1.8 0.9 -Post Debridement Size (cm) - Width 1.4 1.2 -Post Debridement Size (cm) - Depth 0.1 0.1 -Total Square Cm 2.52 1.08 -Wound/Ulcer Outcome Not Healed Not Healed -Ulcer Cleansing Not Cleansed Not Cleansed -Foul Odor after Cleansing No No -Bioengineered Tissue No No -Bleeding Controlled with NA NA -Treatment Response Procedure Procedure Tolerated Well Tolerated Well #5 Left Lateral Leg superior CLUSTER -Time 11:04 11:28 -Correct Patient Yes Yes -Correct Side, Site, Position Yes Yes -Correct Procedure Yes Yes -Procedure Performed Yes Yes -Type of Procedure Debridement Debridement -Clinical Debridement Subcutaneous Subcutaneous -Post Debridement Size (cm) - Length 0.6 0.5 -Post Debridement Size (cm) - Width 1.1 0.7 -Post Debridement Size (cm) - Depth 0.1 0.1 -Total Square Cm 0.66 0.35 -Wound/Ulcer Outcome Not Healed Not Healed -Ulcer Cleansing Not Cleansed Not Cleansed -Foul Odor after Cleansing No No -Bioengineered Tissue No No -Bleeding Controlled with NA Pressure -Treatment Response Procedure Procedure Tolerated Well Tolerated Well Pain Scale: 0-10 Numeric Is Patient Pain Free? No Yes Wound debrided: Left lateral leg superior Laterality: Left Type of Debridement: Excisional debridement Anesthesia Used: 4% Lidocaine Solution Depth: in the subcutaneous layer Percentage of wound debrided: 100 Instrument Used: 3mm curette Tissue Removed: Adherent slough, fibrin, hyperkeratotic tissue Severity: Fat Layer Exposed Amount of bleeding with debridement: Mild Bleeding Controlled with: Pressure Patient tolerated procedure well - Additional Wound Wound debrided: Left lateral leg inferior Laterality: Left Type of Debridement: Excisional debridement Depth: Down to and including healthy tissue, in the subcutaneous layer Percentage of wound debrided: 100 Instrument Used: 3mm curette Tissue Removed: Adherent slough, fibrin, hyperkeratotic tissue Severity: Fat Layer Exposed Amount of bleeding with debridement: Mild Bleeding Controlled with: Pressure Patient tolerated procedure: Patient tolerated procedure well - Additional Wound Wound debrided: Right dorsal foot Laterality: Right Type of Debridement: Excisional debridement Anesthesia Used: 4% Lidocaine Solution Depth: Down to and including healthy tissue, in the subcutaneous layer Percentage of wound debrided: 100 Instrument Used: 3mm curette Tissue Removed: Adherent slough, fibrin, hyperkeratotic tissue Severity: Fat Layer Exposed Amount of bleeding with debridement: Mild Bleeding Controlled with: Pressure Patient tolerated procedure: Patient tolerated procedure well Assessment/Plan Active Problems (Last Reviewed 05/23/17 @ 15:40 by Lisa Hutton) Ulcer of right lower extremity with fat layer exposed (Acute) Assessment: Ulcer to left lower leg with fat layer exposed. DM II. Lower extremity edema Plan: Patient was again examined and evaluated today. The three aforementioned ulcers were all debrided subcutaneously as noted in the clinical panel again this week. Slight improvement again appreciated to all ulcer sites. Once all of the ulcers were debrided and carefully cleansed, the ulcer sites were then dressed with aquacel ag, followed by a dry sterile dressing along with tubigrips followed by JASMINE wraps. The dressing is to be changed in this manner daily. She will do this with the help of family friend, her son, and home health. It was again discussed the importance of keeping the compression from the toes all the way up to the knee. She has not been fully compliant with this in the past. She was instrcuted on the importance of keeping pressure off of all of the ulcer sites at all times while seated. I again stressed the importance of compression with the patient's healing. She was instructed to wear the tubigrip and to keep her lower extremities elevated while seated. She is to continue with lasix as prescribed by Dr. Franco. I recommended a high- protein diet for this patient to supplement wound healing. Patient's insurance denied apligraf and puraply. Patient was educated on all signs and symptoms of local and systemic infection, and was instructed to go to the ER immediately should she notice any. All other questions were answered to the patient's satisfaction. The patient will follow-up in clinic in 1 week to check on progress, or sooner if needed.
== END 2017-10-05 23:59 ==
LOC: WC 10:00
PROVIDERS: Family Provider Family Medicine Geriatric Medicine; PCP Family Medicine Geriatric Medicine; Visit Provider Podiatrist
DX: E11.622 Type 2 diabetes mellitus with other skin ulcer (principal); L97.822 Non-pressure chronic ulcer of other part of left lower leg with fat layer exposed; E11.22 Type 2 diabetes mellitus with diabetic chronic kidney disease; R60.0 Localized edema; E11.51 Type 2 diabetes mellitus with diabetic peripheral angiopathy without gangrene; G35 Multiple sclerosis
CPT/HCPCS: 11042

== ENCOUNTER → 2017-10-04 12:43 | Outpatient (CLI) | payer MEDICARE, SELFPAY ==
[2017-10-04 14:04] LABS: Albumin, Serum 3.4 g/dL (3.2-5.0); BUN 50 mg/dL (7-18); BUN/Creat Ratio 17.6 RATIO (10-20); Calcium,Total 9.3 mg/dL (8.5-10.1); Chloride 104 mmol/L (98-107); Creatinine, Serum 2.84 mg/dL (0.55-1.02); EST Glomerular Filtration Rate 17 mL/min (>60); Est Glom Filt Rate - Afr Amer 21 mL/min (>60); Glucose 105 mg/dL (74-106); Phosphorus 3.6 mg/dL (2.5-4.9); Potassium 5.2 mmol/L (3.5-5.1); Sodium Level 141 mmol/L (136-145)
== END ==
PROVIDERS: Family Provider Family Medicine Geriatric Medicine; PCP Family Medicine Geriatric Medicine; Visit Provider Internal Medicine Nephrology
DX: N18.3 Chronic kidney disease, stage 3 (moderate) (principal); R30.0 Dysuria; E11.622 Type 2 diabetes mellitus with other skin ulcer; L97.822 Non-pressure chronic ulcer of other part of left lower leg with fat layer exposed; E11.22 Type 2 diabetes mellitus with diabetic chronic kidney disease; N17.9 Acute kidney failure, unspecified; R60.0 Localized edema; E11.51 Type 2 diabetes mellitus with diabetic peripheral angiopathy without gangrene; G35 Multiple sclerosis
CPT/HCPCS: 11042; 36415; 80069; 87086; 87088; 87186

== ENCOUNTER → 2017-10-05 12:10 | Outpatient (CLI) | payer MEDICARE, SELFPAY | PROVIDERS: Family Provider Family Medicine Geriatric Medicine; PCP Family Medicine Geriatric Medicine; Visit Provider Family Medicine Geriatric Medicine | DX: M25.511 Pain in right shoulder (principal); M25.512 Pain in left shoulder | CPT/HCPCS: 73030 ==

== ENCOUNTER → 2017-10-10 14:03 | Outpatient (CLI) | payer MEDICARE, SELFPAY ==
[2017-10-10 17:35] LABS: Absolute Lymphocyte Count 1.44 X10^3/ul (0.83-4.51); Absolute Neutrophil Count 8.8 X10^3/uL (2.0-7.7); Basophil# 0.02 X10^3/uL; Basophil% 0.2 % (0-1); Eosinophil# 0.05 X10^3/uL; Eosinophils% 0.4 % (0-5); Hematocrit 28.5 % (37-47); Hemoglobin 7.9 g/dl (12.0-15.0); Lymphocyte # 1.44 X10^3/ul (4.0); Lymphocyte % 12.9 % (19-41); Mean Corp Hgb Conc 27.7 g/gl (32-36); Mean Corpuscular Hgb 21.3 pg (27.0-32.0); Mean Corpuscular Volume 76.8 fL (81-99); Mean Platelet Vol. 9.2 fl (6.2-12.0); Monocyte# 0.78 X10^3/uL; Neutrophil # 8.82 X10^3/uL (2.7-7.7); Neutrophil % 78.9 % (47-70); Platelet Count 451 K/mm3 (150-450); RBC Distribution Width SD 53.6 fl (35.1-43.9); Red Blood Count 3.71 M/mm3 (4.2-5.4); White Blood Count 11.2 K/mm3 (4.4-11.0)
[2017-10-10 17:52] LABS: AST(SGOT) 14 U/L (15-37); Alanine Aminotransfer ALT/SGPT 25 U/L (13-56); Albumin, Serum 3.2 g/dL (3.2-5.0); Alkaline Phosphatase 48 U/L (45-117); Anion Gap 12 (5-15); BUN 44 mg/dL (7-18); Calcium,Total 9.2 mg/dL (8.5-10.1); Chloride 106 mmol/L (98-107); Cholesterol 209 mg/dL (200); Creatinine, Serum 2.32 mg/dL (0.55-1.02); EST Glomerular Filtration Rate 22 mL/min (>60); Est Glom Filt Rate - Afr Amer 26 mL/min (>60); Globulin 3.1 g/dL (2.2-4.2); Glucose 157 mg/dL (74-106); High Density Lipoprotein 48 mg/dL; Protein, Total 6.3 g/dL (6.4-8.2); Sodium Level 140 mmol/L (136-145); Triglycerides 210 mg/dL; Very Low Density Lipoprotein 42 mg/dL (5-40)
[2017-10-10 18:36] LABS: POSITIVE COUNT NO; POSITIVE DIFFERENTIAL NO; POSITIVE MORPHOLOGY NO
== END ==
PROVIDERS: Family Provider Family Medicine Geriatric Medicine; PCP Family Medicine Geriatric Medicine; Visit Provider Family Medicine Geriatric Medicine
DX: E11.9 Type 2 diabetes mellitus without complications (principal); E55.9 Vitamin D deficiency, unspecified; E78.4 Other hyperlipidemia; I10 Essential (primary) hypertension
CPT/HCPCS: 36415; 80053; 80061; 82306; 84443; 85025

== ENCOUNTER → 2017-10-12 08:48 | Outpatient (CLI) | payer MEDICARE, SELFPAY ==
[2017-10-12 09:09] VITALS: BP 161/64; PULSE 57; RESP 18; TEMP 36.4; O2SAT 100; BMI 41.8
[2017-10-12 09:40] VITALS: BP 123/65; PULSE 56; RESP 18; TEMP 36.8; O2SAT 100
[2017-10-12 10:40] VITALS: BP 127/54; PULSE 59; RESP 16; TEMP 36.9
[2017-10-12] MEDS: Furosemide 20 MG/2 ML VIAL IV (11:29)
[2017-10-12 11:34] VITALS: BP 128/50; PULSE 62; RESP 16; TEMP 36.7
[2017-10-12 12:55] VITALS: BP 144/63; PULSE 60; RESP 18; TEMP 36.3; O2SAT 99
[2017-10-12 13:05] VITALS: BP 125/49; PULSE 61; RESP 16; TEMP 36.2; O2SAT 96
== END ==
PROVIDERS: Family Provider Family Medicine Geriatric Medicine; PCP Family Medicine Geriatric Medicine; Visit Provider Family Medicine Geriatric Medicine
DX: D64.9 Anemia, unspecified (principal)
CPT/HCPCS: 36415; 36430; 86850; 86900; 86920; 86922; J7040; P9016; A4216; J1940

== ENCOUNTER → 2017-10-13 13:58 | Outpatient (CLI) | payer MEDICARE, SELFPAY ==
[2017-10-13 14:16] LABS: Hematocrit 34.7 % (37-47); Hemoglobin 10.2 g/dl (12.0-15.0)
[2017-10-13 14:50] LABS: Albumin, Serum 3.2 g/dL (3.2-5.0); BUN 32 mg/dL (7-18); BUN/Creat Ratio 18.5 RATIO (10-20); Calcium,Total 9.1 mg/dL (8.5-10.1); Chloride 111 mmol/L (98-107); Creatinine, Serum 1.73 mg/dL (0.55-1.02); EST Glomerular Filtration Rate 31 mL/min (>60); Est Glom Filt Rate - Afr Amer 37 mL/min (>60); Glucose 102 mg/dL (74-106); Phosphorus 2.8 mg/dL (2.5-4.9); Sodium Level 145 mmol/L (136-145)
== END ==
PROVIDERS: Family Provider Family Medicine Geriatric Medicine; PCP Family Medicine Geriatric Medicine; Visit Provider Family Medicine Geriatric Medicine
DX: D64.9 Anemia, unspecified (principal); N17.9 Acute kidney failure, unspecified
CPT/HCPCS: 36415; 80069; 85014; 85018

== ENCOUNTER → 2017-10-17 09:56 | Outpatient (CLI) | payer MEDICARE, SELFPAY | PROVIDERS: Family Provider Family Medicine Geriatric Medicine; PCP Family Medicine Geriatric Medicine; Visit Provider Internal Medicine Nephrology | DX: N18.3 Chronic kidney disease, stage 3 (moderate) (principal) ==

== ENCOUNTER 2017-10-18 10:45 | Outpatient (RCR) | payer MEDICARE, SELFPAY ==
[2017-10-06 00:52] VITALS: BP 128/53; PULSE 68; RESP 18; TEMP 35.7
[2017-10-11 10:59] VITALS: BP 135/91; PULSE 62; RESP 18; TEMP 37.3
--- NOTE | 2017-10-11 12:57 | PCM.WC.PN ---
(1) Ulcer of right lower extremity with fat layer exposed Status: Acute Current Visit: No Code(s): L97.912 - Non-pressure chronic ulcer of unspecified part of right lower leg with fat layer exposed (2) Ulcer of left lower extremity with fat layer exposed Status: Acute Current Visit: No Code(s): L97.922 - Non-pressure chronic ulcer of unspecified part of left lower leg with fat layer exposed (3) PVD (peripheral vascular disease) Status: Chronic Current Visit: No Code(s): I73.9 - Peripheral vascular disease, unspecified (4) Controlled diabetes mellitus Status: Chronic Current Visit: No Code(s): E11.9 - Type 2 diabetes mellitus without complications (5) Edema, lower extremity Status: Chronic Current Visit: No Code(s): R60.0 - Localized edema Type of Wound Date of Service: 10/11/17 Chief Complaint: Left anterior lower leg ulceration that will not heal. History of Wound: This 72 year old female has significant history of diabetes and multiple sclerosis, bilateral traumatic leg wounds, and other comorbidities. She presents to office today after being referred by Dr. Franco. Per his note, the patient had finished up a prescription for keflex and is on rocephin. Patient states that she recently got a new bed. She says since she is short she had to get a stool in order to get onto her bed. She fell on the stool and got an ulcer on the left anterior leg. She says this happed close to two weeks ago and has not seen much of an improvment since. She has been dressing the ulcer site with bacitracin. She denies any purulence, malodor, redness around the ulcer. She also denies any feelings of nausea, vomiting, fever, or chills currently. Progress of Wound: Patient presents for follow up today. Ulcers to her proximal left lower leg continue to show improvement. Patient says that on April 22 she fell off of her toilet and she had a laceration on her left anterior cabrera. She also had some hematoma formation to the left lateral leg as well as a continued left medial lower leg ulcer. Since the hematomas were debrided and removed, patient says she has been following the dressing changes as instructed as well as trying to keep compression over the area. She believes there continues to be slow improvement again this week. Left superior lower leg ulcer is healed today. Patient is also being seen for her right dorsal foot ulcer that she has been treating in the same manner as her left lower leg ulcers. She denies any signs of infection to the area. She says she has been taking her lasix. She continues to try to keep compression to her lower extremity as instructed. She currently denies any feelings of nausea, vomiting, fever, or chills. - Physical Exam Vital Signs Temp Pulse Resp BP 99.1 F 62 18 135/91 H 10/11/17 10:59 10/11/17 10:59 10/11/17 10:59 10/11/17 10:59 General: Alert, Oriented x3, Cooperative, No apparent distress Extremities: Capillary Refill Less than 3 Seconds, No Calf Tenderness - Negative Sunita and Abraham sign, Diminished Peripheral Pulses - DP and PT pulses nonpalpable due to pitting lower extremity edema, Edema - Bilateral pitting lower extremity edema Skin: Ulcer/ Wound - Ulcer to proximal left lower leg and right dorsal foot with fat layer exposed, with measurements noted below. Superior left lower leg ulcer is healed this week. The bases of the remaining ulcers are noted to be a mixture of adherent slough, fibrin, granular tissue as well as some remaining surrounding hyperkeratotic tissue. There continues to be no probing to bone, no tracking, no undermining, no purulence, no malodor, no extending cellulitis, and no increase in warmth to either site at this time. Wound Measurements and Assessment WC - Nurse 1 - General Ulcer Measurement Start: 10/11/17 10:59 Freq: Status: Active Protocol: Activity Type Activity Date Activity User E-Sign Co-Sign Detail Recorded Client Recorded Date Recorded By Document 10/11/17 10:59 [id number] 10/11/17 11:04 10/11/17 10:59 Wound Center Nurse 1 [Ulcer Assessment] #7 RIGHT DORSAL FOOT -Combined with other wound No -Current Size (cm) - Length 1.0 -Current Size (cm) - Width 1.8 -Current Size (cm) - Depth 0.1 -Total Square Cm 1.80 -Photo Taken No -Epithelialization Small 1-33% -Tunneling No -Undermining/Tunneling No -Circular Undermining No -Classification - Thickness Full Thickness without Exposed Support Structure -Exudate Amt Small (1-33%) -Exudate Type Serosanguineous -Wound Margin Distinct, Outline Attached -Granulation Amt Small (1-33%) -Granulation Quality Red -Slough/Fibrin Yes -Necrosis Amt Large (67-100%) -Necrotic Tissue Type Adherent Slough -Structure Exposed Fascia Fat Layer Exposed -Texture (Char-wound Skin Appearance) Assessed Localized Edema Scarring -Moisture (Char-wound Skin Appearance No Abnormality ) Assessed -Color (Char-wound Skin Appearance) Assessed Ecchymosis Erythema -Temperature (Char-wound Skin No Abnormality Appearance) (Pt Warm) -Tenderness on Palpation (Char-wound No Skin Appearance) -Ulcer Cleansing Rinsed/ Irrigated with Saline -Foul Odor after Cleansing No -Anesthetic Used 5% Lidocaine Gel #6 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 INFERIOR -Combined with other wound No -Current Size (cm) - Length 1.3 -Current Size (cm) - Width 1.2 -Current Size (cm) - Depth 0.1 -Total Square Cm 1.56 -Photo Taken No -Epithelialization Small 1-33% -Tunneling No -Undermining/Tunneling No -Circular Undermining No -Classification - Thickness Full Thickness without Exposed Support Structure -Exudate Amt Small (1-33%) -Exudate Type Serosanguineous -Wound Margin Distinct, Outline Attached -Granulation Amt Large (67-100%) -Granulation Quality Red -Slough/Fibrin Yes -Necrosis Amt Small (1-33%) -Necrotic Tissue Type Adherent Slough -Structure Exposed Fascia Fat Layer Exposed -Texture (Char-wound Skin Appearance) Assessed Localized Edema Scarring -Moisture (Char-wound Skin Appearance No Abnormality ) Assessed -Color (Char-wound Skin Appearance) Assessed Erythema -Temperature (Char-wound Skin No Abnormality Appearance) (Pt Warm) -Tenderness on Palpation (Char-wound No Skin Appearance) -Ulcer Cleansing Rinsed/ Irrigated with Saline -Foul Odor after Cleansing No -Anesthetic Used 5% Lidocaine Gel #5 Left Lateral Leg superior CLUSTER -Combined with other wound No -Current Size (cm) - Length 0 -Current Size (cm) - Width 0 -Current Size (cm) - Depth 0 -Total Square Cm 0 -Date of Last Picture (Recall this 10/11/17 field) -Photo Taken Yes -Epithelialization Large 67-100% -Tunneling No -Undermining/Tunneling No -Circular Undermining No -Classification - Thickness Full Thickness without Exposed Support Structure -Exudate Amt None Present (0 %) -Wound Margin Distinct, Outline Attached -Granulation Amt Large (67-100%) -Granulation Quality [place] -Slough/Fibrin No -Necrosis Amt None Present (0 %) -Structure Exposed None/Limited to Skin Breakdown -Texture (Char-wound Skin Appearance) Assessed Localized Edema Scarring -Moisture (Char-wound Skin Appearance Assessed ) Dry/Scaly -Color (Char-wound Skin Appearance) Assessed Hemosiderin Staining -Temperature (Char-wound Skin No Abnormality Appearance) (Pt Warm) -Tenderness on Palpation (Char-wound No Skin Appearance) -Ulcer Cleansing Rinsed/ Irrigated with Saline -Foul Odor after Cleansing No [Edema Assessment] -Lower Limb Edema Present Yes -Right Calf (cm) 42.5 -Right Ankle (cm) 30.5 -Left Calf (cm) 40.5 -Left Ankle (cm) 26.0 WC - Nurse 2 - General Ulcer CM Notes Start: 10/11/17 10:59 Freq: Status: Active Protocol: Activity Type Activity Date Activity User E-Sign Co-Sign Detail Recorded Client Recorded Date Recorded By Document 10/11/17 11:26 KANDY [id number] 10/11/17 11:28 KANDY 10/11/17 11:26 Wound Center Nurse 2 [Procedure/Treatment] #7 RIGHT DORSAL FOOT -Time 11:26 -Correct Patient Yes -Correct Side, Site, Position Yes -Correct Procedure Yes -Procedure Performed Yes -Type of Procedure Debridement -Clinical Debridement Subcutaneous -Post Debridement Size (cm) - Length 1.0 -Post Debridement Size (cm) - Width 1.1 -Post Debridement Size (cm) - Depth 0.3 -Total Square Cm 1.10 -Wound/Ulcer Outcome Not Healed -Ulcer Cleansing Rinsed/ Irrigated with Saline -Foul Odor after Cleansing No -Bioengineered Tissue No -Topical Lidocaine (%) 5 -Bleeding Controlled with NA -Treatment Response Procedure Tolerated Well #6 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 INFERIOR -Time 11:27 -Correct Patient Yes -Correct Side, Site, Position Yes -Correct Procedure Yes -Procedure Performed Yes -Type of Procedure Debridement -Clinical Debridement Subcutaneous -Post Debridement Size (cm) - Length 1.1 -Post Debridement Size (cm) - Width 1.3 -Post Debridement Size (cm) - Depth 0.1 -Total Square Cm 1.43 -Wound/Ulcer Outcome Not Healed -Ulcer Cleansing Rinsed/ Irrigated with Saline -Foul Odor after Cleansing No -Bioengineered Tissue No -Topical Lidocaine (%) 5 -Bleeding Controlled with NA [See Physician Procedure note for Specifics] Pain Scale: 0-10 Numeric [Pain] -Is Patient Pain Free? Yes Musculoskeletal: Tenderness - With manipulation of ulcer sites Neurological: Sensory exam intact to light touch and pain Psych/Mental Status: Normal Affect, Appropriate Debridement Note Post-Debridement Measurements/Treatment WC - Nurse 2 - General Ulcer CM Notes Start: 10/11/17 10:59 Freq: Status: Active Protocol: Activity Type Activity Date Activity User E-Sign Co-Sign Detail Recorded Client Recorded Date Recorded By Document 10/11/17 11:26 KANDY [id number] 10/11/17 11:28 KANDY 10/11/17 11:26 Wound Center Nurse 2 #7 RIGHT DORSAL FOOT -Time 11:26 -Correct Patient Yes -Correct Side, Site, Position Yes -Correct Procedure Yes -Procedure Performed Yes -Type of Procedure Debridement -Clinical Debridement Subcutaneous -Post Debridement Size (cm) - Length 1.0 -Post Debridement Size (cm) - Width 1.1 -Post Debridement Size (cm) - Depth 0.3 -Total Square Cm 1.10 -Wound/Ulcer Outcome Not Healed -Ulcer Cleansing Rinsed/ Irrigated with Saline -Foul Odor after Cleansing No -Bioengineered Tissue No -Topical Lidocaine (%) 5 -Bleeding Controlled with NA -Treatment Response Procedure Tolerated Well #6 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 INFERIOR -Time 11:27 -Correct Patient Yes -Correct Side, Site, Position Yes -Correct Procedure Yes -Procedure Performed Yes -Type of Procedure Debridement -Clinical Debridement Subcutaneous -Post Debridement Size (cm) - Length 1.1 -Post Debridement Size (cm) - Width 1.3 -Post Debridement Size (cm) - Depth 0.1 -Total Square Cm 1.43 -Wound/Ulcer Outcome Not Healed -Ulcer Cleansing Rinsed/ Irrigated with Saline -Foul Odor after Cleansing No -Bioengineered Tissue No -Topical Lidocaine (%) 5 -Bleeding Controlled with NA Pain Scale: 0-10 Numeric Is Patient Pain Free? Yes Wound debrided: Left lateral leg inferior Laterality: Left Type of Debridement: Excisional debridement Anesthesia Used: 4% Lidocaine Solution Depth: in the subcutaneous layer Percentage of wound debrided: 100 Instrument Used: 3mm curette Tissue Removed: Adherent slough, fibrin, hyperkeratotic tissue Severity: Fat Layer Exposed Amount of bleeding with debridement: Mild Bleeding Controlled with: Pressure Patient tolerated procedure well - Additional Wound Wound debrided: Right dorsal foot Laterality: Right Type of Debridement: Excisional debridement Anesthesia Used: 4% Lidocaine Solution Depth: in the subcutaneous layer Percentage of wound debrided: 100 Instrument Used: 3mm curette Tissue Removed: Adherent slough, fibrin, hyperkeratotic tissue Severity: Fat Layer Exposed Amount of bleeding with debridement: Mild Bleeding Controlled with: Pressure Patient tolerated procedure: Patient tolerated procedure well Assessment/Plan Assessment: Ulcer to left lower leg with fat layer exposed. DM II. Lower extremity edema Plan: Patient was again examined and evaluated today. The two reamaining aforementioned ulcers were debrided subcutaneously as noted in the clinical panel again this week. Slight improvement again appreciated to the left leg ulcer sites with the superior ulcer being healed today. Once all of the ulcers were debrided and carefully cleansed, the ulcer sites were then dressed with aquacel ag, followed by a dry sterile dressing along with tubigrips followed by JASMINE wraps. The dressing is to be changed in this manner daily. She will do this with the help of family friend, her son, and home health. It was again discussed the importance of keeping the compression from the toes all the way up to the knee. She has not been fully compliant with this in the past. She was instrcuted on the importance of keeping pressure off of all of the ulcer sites at all times while seated. I again stressed the importance of compression with the patient's healing. She was instructed to wear the tubigrip and to keep her lower extremities elevated while seated. She is to continue with lasix as prescribed by Dr. Franco. I recommended a high-protein diet for this patient to supplement wound healing. Patient's insurance denied apligraf and puraply. Patient was educated on all signs and symptoms of local and systemic infection, and was instructed to go to the ER immediately should she notice any. All other questions were answered to the patient's satisfaction. The patient will follow-up in clinic in 1 week to check on progress, or sooner if needed.
[2017-10-18 10:52] VITALS: BP 150/72; PULSE 55; RESP 20; TEMP 36.5
--- NOTE | 2017-10-18 13:40 | PCM.WC.PN ---
(1) Ulcer of right lower extremity with fat layer exposed Status: Acute Current Visit: No Code(s): L97.912 - Non-pressure chronic ulcer of unspecified part of right lower leg with fat layer exposed (2) Ulcer of left lower extremity with fat layer exposed Status: Acute Current Visit: No Code(s): L97.922 - Non-pressure chronic ulcer of unspecified part of left lower leg with fat layer exposed (3) PVD (peripheral vascular disease) Status: Chronic Current Visit: No Code(s): I73.9 - Peripheral vascular disease, unspecified (4) Controlled diabetes mellitus Status: Chronic Current Visit: No Code(s): E11.9 - Type 2 diabetes mellitus without complications (5) Edema, lower extremity Status: Chronic Current Visit: No Code(s): R60.0 - Localized edema Type of Wound Date of Service: 10/18/17 Chief Complaint: Left anterior lower leg ulceration that will not heal. History of Wound: This 72 year old female has significant history of diabetes and multiple sclerosis, bilateral traumatic leg wounds, and other comorbidities. She presents to office today after being referred by Dr. Franco. Per his note, the patient had finished up a prescription for keflex and is on rocephin. Patient states that she recently got a new bed. She says since she is short she had to get a stool in order to get onto her bed. She fell on the stool and got an ulcer on the left anterior leg. She says this happed close to two weeks ago and has not seen much of an improvment since. She has been dressing the ulcer site with bacitracin. She denies any purulence, malodor, redness around the ulcer. She also denies any feelings of nausea, vomiting, fever, or chills currently. Progress of Wound: Patient presents for follow up today. Ulcers continue to show improvement. Patient says that on April 22 she fell off of her toilet and she had a laceration on her left anterior cabrera. She also had some hematoma formation to the left lateral leg as well as a continued left medial lower leg ulcer. Since the hematomas were debrided and removed, patient says she has been following the dressing changes as instructed as well as trying to keep compression over the area. She believes there continues to be slow improvement again this week. She denies any signs of infection to the area. She says she has been taking her lasix. She continues to try to keep compression to her lower extremity as instructed. She currently denies any feelings of nausea, vomiting, fever, or chills. - Physical Exam Vital Signs Temp Pulse Resp BP 97.7 F L 55 L 20 H 150/72 H 10/18/17 10:52 10/18/17 10:52 10/18/17 10:52 10/18/17 10:52 General: Alert, Oriented x3, Cooperative, No apparent distress Extremities: Capillary Refill Less than 3 Seconds, No Calf Tenderness - Negative Sunita and Abraham sign, Diminished Peripheral Pulses - DP and PT pulses nonpalpable due to pitting lower extremity edema, Edema - Bilateral pitting lower extremity edema Skin: Ulcer/ Wound - Ulcer to proximal left lower leg and right dorsal foot with fat layer exposed. Measurements are noted of each ulcer below. The bases of the remaining ulcers are noted to be a mixture of adherent slough, fibrin, granular tissue as well as some slight surrounding hyperkeratotic tissue. There continues to be no probing to bone, no tracking, no undermining, no purulence, no malodor, no extending cellulitis, and no increase in warmth to either ulcer site today. Wound Measurements and Assessment WC - Nurse 1 - General Ulcer Measurement Start: 10/11/17 10:59 Freq: Status: Active Protocol: Activity Type Activity Date Activity User E-Sign Co-Sign Detail Recorded Client Recorded Date Recorded By Document 10/18/17 10:52 [facility] [id number] 10/18/17 11:04 [facility] 10/18/17 10:52 Wound Center Nurse 1 [Ulcer Assessment] #7 RIGHT DORSAL FOOT -Combined with other wound No -Current Size (cm) - Length 1 -Current Size (cm) - Width 1.9 -Current Size (cm) - Depth 0.2 -Total Square Cm 1.9 -Date of Last Picture (Recall this 10/18/17 field) -Photo Taken Yes -Epithelialization None Present -Tunneling No -Undermining/Tunneling No -Circular Undermining No -Exudate Amt Small (1-33%) -Exudate Type Serous -Wound Margin Distinct, Outline Attached -Granulation Amt Small (1-33%) -Granulation Quality Red -Slough/Fibrin Yes -Necrosis Amt Large (67-100%) -Necrotic Tissue Type Adherent Slough -Texture (Char-wound Skin Appearance) Localized Edema Scarring -Moisture (Char-wound Skin Appearance Dry/Scaly ) -Color (Char-wound Skin Appearance) Erythema -Temperature (Char-wound Skin No Abnormality Appearance) (Pt Warm) -Tenderness on Palpation (Char-wound No Skin Appearance) -Ulcer Cleansing Rinsed/ Irrigated with Saline -Foul Odor after Cleansing No -Anesthetic Used 4% Lidocaine Solution #6 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 INFERIOR -Combined with other wound No -Current Size (cm) - Length 1 -Current Size (cm) - Width 0.7 -Current Size (cm) - Depth 0.1 -Total Square Cm 0.7 -Date of Last Picture (Recall this 10/18/17 field) -Photo Taken Yes -Epithelialization Small 1-33% -Tunneling No -Undermining/Tunneling No -Circular Undermining No -Exudate Amt Small (1-33%) -Exudate Type Serous -Wound Margin Distinct, Outline Attached -Granulation Amt Large (67-100%) -Granulation Quality Pale Red -Slough/Fibrin No -Necrosis Amt None Present (0 %) -Structure Exposed None/Limited to Skin Breakdown -Texture (Char-wound Skin Appearance) Scarring -Moisture (Char-wound Skin Appearance Dry/Scaly ) -Color (Char-wound Skin Appearance) Hemosiderin Staining -Temperature (Char-wound Skin No Abnormality Appearance) (Pt Warm) -Tenderness on Palpation (Char-wound No Skin Appearance) -Ulcer Cleansing Rinsed/ Irrigated with Saline -Foul Odor after Cleansing No -Anesthetic Used 4% Lidocaine Solution [Edema Assessment] -Lower Limb Edema Present Yes -Right Calf (cm) 33 -Right Ankle (cm) 29 -Left Calf (cm) 32 -Left Ankle (cm) 25.3 WC - Nurse 2 - General Ulcer CM Notes Start: 10/11/17 10:59 Freq: Status: Active Protocol: Activity Type Activity Date Activity User E-Sign Co-Sign Detail Recorded Client Recorded Date Recorded By Document 10/18/17 11:25 [id number] 10/18/17 11:26 10/18/17 11:25 Wound Center Nurse 2 [Procedure/Treatment] #7 RIGHT DORSAL FOOT -Time 11:25 -Correct Patient Yes -Correct Side, Site, Position Yes -Correct Procedure Yes -Procedure Performed Yes -Type of Procedure Debridement -Clinical Debridement Subcutaneous -Post Debridement Size (cm) - Length 1 -Post Debridement Size (cm) - Width 1.8 -Post Debridement Size (cm) - Depth 0.2 -Total Square Cm 1.8 -Wound/Ulcer Outcome Not Healed -Ulcer Cleansing Not Cleansed -Foul Odor after Cleansing No -Bioengineered Tissue No -Bleeding Controlled with NA -Treatment Response Procedure Tolerated Well #6 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 INFERIOR -Time 11:26 -Correct Patient Yes -Correct Side, Site, Position Yes -Correct Procedure Yes -Procedure Performed Yes -Type of Procedure Debridement -Clinical Debridement Subcutaneous -Post Debridement Size (cm) - Length 1 -Post Debridement Size (cm) - Width 0.7 -Post Debridement Size (cm) - Depth 0.1 -Total Square Cm 0.7 -Wound/Ulcer Outcome Not Healed -Ulcer Cleansing Not Cleansed -Foul Odor after Cleansing No -Bioengineered Tissue No -Bleeding Controlled with Pressure -Treatment Response Procedure Tolerated Well [See Physician Procedure note for Specifics] Pain Scale: 0-10 Numeric [Pain] -Is Patient Pain Free? Yes Musculoskeletal: Tenderness - With manipulation of ulcer sites Neurological: Sensory exam intact to light touch and pain Psych/Mental Status: Normal Affect, Appropriate Debridement Note Post-Debridement Measurements/Treatment WC - Nurse 2 - General Ulcer CM Notes Start: 10/11/17 10:59 Freq: Status: Active Protocol: Activity Type Activity Date Activity User E-Sign Co-Sign Detail Recorded Client Recorded Date Recorded By Document 10/11/17 11:26 [id number] 10/11/17 11:28 Document 10/18/17 11:25 [id number] 10/18/17 11:26 10/11/17 10/18/17 11:26 11:25 Wound Center Nurse 2 #7 RIGHT DORSAL FOOT -Time 11:26 11:25 -Correct Patient Yes Yes -Correct Side, Site, Position Yes Yes -Correct Procedure Yes Yes -Procedure Performed Yes Yes -Type of Procedure Debridement Debridement -Clinical Debridement Subcutaneous Subcutaneous -Post Debridement Size (cm) - Length 1.0 1 -Post Debridement Size (cm) - Width 1.1 1.8 -Post Debridement Size (cm) - Depth 0.3 0.2 -Total Square Cm 1.10 1.8 -Wound/Ulcer Outcome Not Healed Not Healed -Ulcer Cleansing Rinsed/ Not Cleansed Irrigated with Saline -Foul Odor after Cleansing No No -Bioengineered Tissue No No -Topical Lidocaine (%) 5 -Bleeding Controlled with NA NA -Treatment Response Procedure Procedure Tolerated Well Tolerated Well #6 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 INFERIOR -Time 11:27 11:26 -Correct Patient Yes Yes -Correct Side, Site, Position Yes Yes -Correct Procedure Yes Yes -Procedure Performed Yes Yes -Type of Procedure Debridement Debridement -Clinical Debridement Subcutaneous Subcutaneous -Post Debridement Size (cm) - Length 1.1 1 -Post Debridement Size (cm) - Width 1.3 0.7 -Post Debridement Size (cm) - Depth 0.1 0.1 -Total Square Cm 1.43 0.7 -Wound/Ulcer Outcome Not Healed Not Healed -Ulcer Cleansing Rinsed/ Not Cleansed Irrigated with Saline -Foul Odor after Cleansing No No -Bioengineered Tissue No No -Topical Lidocaine (%) 5 -Bleeding Controlled with NA Pressure -Treatment Response Procedure Tolerated Well Pain Scale: 0-10 Numeric Is Patient Pain Free? Yes Yes Wound debrided: Left lateral leg inferior Laterality: Left Type of Debridement: Excisional debridement Depth: in the subcutaneous layer Percentage of wound debrided: 100 Instrument Used: 3mm curette Tissue Removed: Adherent slough, fibrin, hyperkeratotic tissue Severity: Fat Layer Exposed Amount of bleeding with debridement: Mild Bleeding Controlled with: Pressure Patient tolerated procedure well - Additional Wound Wound debrided: Right dorsal foot Laterality: Right Type of Debridement: Excisional debridement Anesthesia Used: 4% Lidocaine Solution Depth: in the subcutaneous layer Percentage of wound debrided: 100 Instrument Used: 3mm curette Tissue Removed: Adherent slough, fibrin, hyperkeratotic tissue Severity: Fat Layer Exposed Amount of bleeding with debridement: Mild Bleeding Controlled with: Pressure Patient tolerated procedure: Patient tolerated procedure well Assessment/Plan Assessment: Ulcer to left lower leg with fat layer exposed. DM II. Lower extremity edema Plan: Patient was again examined and evaluated today. The two aforementioned ulcers were debrided subcutaneously as noted in the clinical panel. Slight improvement appreciated to each ulcer site again this week. Once all of the ulcers were debrided and carefully cleansed, the ulcer sites were then dressed with aquacel ag, followed by a dry sterile dressing along with tubigrips followed by JASMINE wraps. The dressing is to be changed in this manner daily. She will do this with the help of family friend, her son, and home health. It was again discussed the importance of keeping the compression from the toes all the way up to the knee. She has not been fully compliant with this in the past. She was instrcuted on the importance of keeping pressure off of all of the ulcer sites at all times while seated. I again stressed the importance of compression with the patient's healing. She was instructed to wear the tubigrip and to keep her lower extremities elevated while seated. She is to continue with lasix as prescribed by Dr. Franco. I recommended a high-protein diet for this patient to supplement wound healing. Patient's insurance denied apligraf and puraply. Patient was educated on all signs and symptoms of local and systemic infection, and was instructed to go to the ER immediately should she notice any. All other questions were answered to the patient's satisfaction. The patient will follow-up in clinic in 1 week to check on progress, or sooner if needed.
== END 2017-11-04 23:59 ==
LOC: WC 10:45
PROVIDERS: Family Provider Family Medicine Geriatric Medicine; PCP Family Medicine Geriatric Medicine; Visit Provider Podiatrist
DX: E11.622 Type 2 diabetes mellitus with other skin ulcer (principal); L97.822 Non-pressure chronic ulcer of other part of left lower leg with fat layer exposed; R60.0 Localized edema; E11.51 Type 2 diabetes mellitus with diabetic peripheral angiopathy without gangrene; G35 Multiple sclerosis; E11.621 Type 2 diabetes mellitus with foot ulcer; L97.512 Non-pressure chronic ulcer of other part of right foot with fat layer exposed
CPT/HCPCS: 11042; 11045; 36415; 86850; 86900; 86920; 86922

== ENCOUNTER 2017-10-24 18:33 | Inpatient (IN) | payer MEDICARE, SELFPAY ==
[2017-10-24 18:36] VITALS: BP 155/62; PULSE 79; RESP 18; TEMP 37.8; O2SAT 96; BMI 44.4
--- NOTE | 2017-10-24 19:47 | EKG12_ITS ---
Test Reason : CP Blood Pressure : / mmHG Vent. Rate : 078 BPM Atrial Rate : 078 BPM P-R Int : 152 ms QRS Dur : 072 ms QT Int : 378 ms P-R-T Axes : 013 013 095 degrees QTc Int : 430 ms Normal sinus rhythm Nonspecific ST and T wave abnormality Abnormal ECG Confirmed by BLACK HATCH, PARDEEP ([id number]), newspaper or periodical editor SHAHNAZ MARINA ([id number]) on 10/25/2017 1:35:58 PM Referred By: NARCISA Confirmed By:PARDEEP CLEANING MD
--- NOTE | 2017-10-24 19:48 | RAD_ITS ---
STUDY: X-RAY - RIGHT TIBIA AND FIBULA REASON FOR EXAM: Female, 72 years old. Redness, swelling TECHNIQUE: 2 view(s) of the tibia and fibula were obtained. COMPARISON: None. FINDINGS: Normal visualized tibia. Previous ORIF involving the distal portion of the fibula. Soft tissue edema is noted. There is skin irregularity laterally. RAD/Tibia & Fibula 2 Views IMPRESSION: There is soft tissue edema. Skin irregularity laterally. Electronically Signed: Eric Pollard DO at 21:23 EDT Tel [phone], Service support ,
--- NOTE | 2017-10-24 19:49 | ED.VISSUMM ---
- ER Visit Summary Date of Service: 10/24/17 Chief Complaint: Right leg pain and swelling History of Present Illness: The patient is a 72 F with multiple medical comorbidities including chronic lower extremity edema and poorly healing ulcers, chronic kidney disease and diabetes, presents for 1 day of right lower leg pain and swelling. Patient normally keeps her legs wrapped with compression stockings in place. She is on diuretics to help with peripheral edema. Today her right leg became swollen, erythematous, and painful. Pain radiates up to the medial distal thigh. Patient unable to bear weight or walk secondary to pain. Denies fever at home but states she had a fever in triage. She denies any chest pain, shortness of breath, abdominal pain, nausea or vomiting or other symptoms other than the leg discomfort. Physical Examination: Vital signs: Temperature 100.0, hemodynamically stable, no hypoxia on room air General: well nourished, well developed, in no distress, laying in bed Skin: warm, dry, no rash, no pallor, bilateral lower extremities with scarring, ulcerations, edema, right lower extremity has significant pitting edema below the knee, erythema, dusky area to the medial mid cabrera with serous fluid draining, leg very tender to palpation, erythema extends to the medial thigh HEENT: normocephalic and atraumatic; PERRL, EOMI, moist mucous membranes Cardiovascular: regular rate and rhythm without murmurs, no peripheral edema, 2+ pulses all distal extremities Respiratory: No increased work of breathing, lungs are clear to auscultation bilaterally, no rales, rhonchi or wheezing Abdominal: Abdomen is soft, nontender with normoactive bowel sounds, no guarding or rebound, no masses MSK: Moves all extremities, no deformities, normal strength Neuro: Awake and alert, oriented ?4. No facial droop, sensation and motor function intact and symmetric Test Results: Abnormal Lab Results 10/24/17 10/24/17 10/24/17 19:20 19:20 19:20 WBC 13.1 H RBC 4.54 Hgb 10.2 L Hct 35.2 L MCV 77.5 L MCH 22.5 L MCHC 29.0 L RDW 19.6 H RDW Differential 56.2 H Plt Count 229 MPV 10.0 Immature Gran % (Auto) 0.100 Neut % (Auto) 90.6 H Lymph % (Auto) 6.8 L Barrow % (Auto) 2.4 Eos % (Auto) 0.1 Baso % (Auto) 0.0 Absolute Neuts (auto) 11.9 H Absolute Lymphs (auto) 0.89 Total Counted Not Reportable PT 26.2 H INR 2.4 APTT 33.2 Sodium 141 Potassium 4.3 Chloride 105 Carbon Dioxide 26.0 Anion Gap 10 BUN 29 H Creatinine 1.45 H Estim Creat Clear Calc 24.82 Est GFR (MDRD) Af Amer 45 L Est GFR (MDRD) Non-Af 38 L BUN/Creatinine Ratio 20.0 Glucose 104 Lactic Acid Calcium 8.8 Total Bilirubin 0.90 AST 15 ALT 34 Alkaline Phosphatase 52 Troponin I 0.017 Total Protein 6.2 L Albumin 2.9 L Globulin 3.3 Albumin/Globulin Ratio 0.9 Urine Color Urine Clarity Urine pH Ur Specific Zoar Urine Protein Urine Glucose (UA) Urine Ketones Urine Occult Blood Urine Nitrite Urine Bilirubin Urine Urobilinogen Ur Leukocyte Esterase Urine RBC Urine WBC Ur Squamous Epith Cells Urine Bacteria Urine Mucus 10/24/17 10/24/17 19:20 20:20 WBC RBC Hgb Hct MCV MCH MCHC RDW RDW Differential Plt Count MPV Immature Gran % (Auto) Neut % (Auto) Lymph % (Auto) Barrow % (Auto) Eos % (Auto) Baso % (Auto) Absolute Neuts (auto) Absolute Lymphs (auto) Total Counted PT INR APTT Sodium Potassium Chloride Carbon Dioxide Anion Gap BUN Creatinine Estim Creat Clear Calc Est GFR (MDRD) Af Amer Est GFR (MDRD) Non-Af BUN/Creatinine Ratio Glucose Lactic Acid 1.5 Calcium Total Bilirubin AST ALT Alkaline Phosphatase Troponin I Total Protein Albumin Globulin Albumin/Globulin Ratio Urine Color Yellow Urine Clarity Clear Urine pH 5.0 Ur Specific Zoar 1.015 Urine Protein 15 H Urine Glucose (UA) Normal Urine Ketones Negative Urine Occult Blood 25 H Urine Nitrite Negative Urine Bilirubin Negative Urine Urobilinogen Normal Ur Leukocyte Esterase 25 H Urine RBC 0 SEEN Urine WBC 0-5 SEEN Ur Squamous Epith Cells 0 SEEN Urine Bacteria RARE Urine Mucus RARE Clinical Impression(s) from Imaging Studies Tibia/Fibula X-Ray 10/24/17 19:48 IMPRESSION: There is soft tissue edema. Skin irregularity laterally. Electronically Signed: Eric Pollard DO at 21:23 EDT Tel [phone], Service support , Chest X-Ray 10/24/17 20:05 IMPRESSION: Prominent cardiac shadow. Minimal basilar atelectasis. Electronically Signed: Eric DO Atul at 21:26 EDT Tel [phone], Service support , Emergency Department Course and Treatment: Patient's leg is concerning for cellulitis versus DVT. She has a history of both in that leg. X-ray was performed to evaluate for any subcutaneous gas or osteomyelitis, and no concerning findings were noted. An ultrasound was ordered to evaluate for DVT. Patient's medication list did note patient is on Xarelto, and thus it is unlikely that she has a DVT as she is Stuart on anticoagulation. Workup was performed showing a leukocytosis of 13.1, a normal lactate 1.5, and creatinine 1.45. Patient was started on clindamycin for coverage of cellulitis. She is allergic to penicillins. Given the extent of patient's lower extremity cellulitis in her multiple medical comorbidities, she would benefit from inpatient management of her cellulitis and IV antibiotics. Patient was discussed with the hospitalist and admitted. Treatment Plan: [] Disposition: [] Impression: Right lower extremity cellulitis This note was generated with [employer] dictation software. It may contain incorrect words, spelling, and punctuation that were not noted in review of the chart prior to signing ED Disposition - Plan for ED Patient: Disposition: Acute Care Hospital [facility] Chief Complaint: Cellulitis
[2017-10-24 19:52] VITALS: PULSE 77; RESP 23; O2SAT 96
--- NOTE | 2017-10-24 19:52 | ED.DCSUM_ITS ---
- ER Visit Summary Date of Service: 10/24/17 Chief Complaint: Right leg pain and swelling History of Present Illness: The patient is a 72 F with multiple medical comorbidities including chronic lower extremity edema and poorly healing ulcers , chronic kidney disease and diabetes, presents for 1 day of right lower leg pain and swelling. Patient normally keeps her legs wrapped with compression stockings in place. She is on diuretics to help with peripheral edema. Today her right leg became swollen, erythematous, and painful. Pain radiates up to the medial distal thigh. Patient unable to bear weight or walk secondary to pain. Denies fever at home but states she had a fever in triage. She denies any chest pain, shortness of breath, abdominal pain, nausea or vomiting or other symptoms other than the leg discomfort. Physical Examination: Vital signs: Temperature 100.0, hemodynamically stable, no hypoxia on room air General: well nourished, well developed, in no distress, laying in bed Skin: warm, dry, no rash, no pallor, bilateral lower extremities with scarring, ulcerations, edema, right lower extremity has significant pitting edema below the knee, erythema, dusky area to the medial mid cabrera with serous fluid draining , leg very tender to palpation, erythema extends to the medial thigh HEENT: normocephalic and atraumatic; PERRL, EOMI, moist mucous membranes Cardiovascular: regular rate and rhythm without murmurs, no peripheral edema, 2 + pulses all distal extremities Respiratory: No increased work of breathing, lungs are clear to auscultation bilaterally, no rales, rhonchi or wheezing Abdominal: Abdomen is soft, nontender with normoactive bowel sounds, no guarding or rebound, no masses MSK: Moves all extremities, no deformities, normal strength Neuro: Awake and alert, oriented ?4. No facial droop, sensation and motor function intact and symmetric Test Results: Abnormal Lab Results 10/24/17 10/24/17 10/24/17 19:20 19:20 19:20 WBC 13.1 H RBC 4.54 Hgb 10.2 L Hct 35.2 L MCV 77.5 L MCH 22.5 L MCHC 29.0 L RDW 19.6 H RDW Differential 56.2 H Plt Count 229 MPV 10.0 Immature Gran % (Auto) 0.100 Neut % (Auto) 90.6 H Lymph % (Auto) 6.8 L [place] % (Auto) 2.4 Eos % (Auto) 0.1 Baso % (Auto) 0.0 Absolute Neuts (auto) 11.9 H Absolute Lymphs (auto) 0.89 Total Counted Not Reportable PT 26.2 H INR 2.4 APTT 33.2 Sodium 141 Potassium 4.3 Chloride 105 Carbon Dioxide 26.0 Anion Gap 10 BUN 29 H Creatinine 1.45 H Estim Creat Clear Calc 24.82 Est GFR (MDRD) Af Amer 45 L Est GFR (MDRD) Non-Af 38 L BUN/Creatinine Ratio 20.0 Glucose 104 Lactic Acid Calcium 8.8 Total Bilirubin 0.90 AST 15 ALT 34 Alkaline Phosphatase 52 Troponin I 0.017 Total Protein 6.2 L Albumin 2.9 L Globulin 3.3 Albumin/Globulin Ratio 0.9 Urine Color Urine Clarity Urine pH Ur Specific [place] Urine Protein Urine Glucose (UA) Urine Ketones Urine Occult Blood Urine Nitrite Urine Bilirubin Urine Urobilinogen Ur Leukocyte Esterase Urine RBC Urine WBC Ur Squamous Epith Cells Urine Bacteria Urine Mucus 10/24/17 10/24/17 19:20 20:20 WBC RBC Hgb Hct MCV MCH MCHC RDW RDW Differential Plt Count MPV Immature Gran % (Auto) Neut % (Auto) Lymph % (Auto) [place] % (Auto) Eos % (Auto) Baso % (Auto) Absolute Neuts (auto) Absolute Lymphs (auto) Total Counted PT INR APTT Sodium Potassium Chloride Carbon Dioxide Anion Gap BUN Creatinine Estim Creat Clear Calc Est GFR (MDRD) Af Amer Est GFR (MDRD) Non-Af BUN/Creatinine Ratio Glucose Lactic Acid 1.5 Calcium Total Bilirubin AST ALT Alkaline Phosphatase Troponin I Total Protein Albumin Globulin Albumin/Globulin Ratio Urine Color Yellow Urine Clarity Clear Urine pH 5.0 Ur Specific [place] 1.015 Urine Protein 15 H Urine Glucose (UA) Normal Urine Ketones Negative Urine Occult Blood 25 H Urine Nitrite Negative Urine Bilirubin Negative Urine Urobilinogen Normal Ur Leukocyte Esterase 25 H Urine RBC 0 SEEN Urine WBC 0-5 SEEN Ur Squamous Epith Cells 0 SEEN Urine Bacteria RARE Urine Mucus RARE Clinical Impression(s) from Imaging Studies Tibia/Fibula X-Ray 10/24/17 19:48 IMPRESSION: There is soft tissue edema. Skin irregularity laterally. Electronically Signed: Eric Pollard DO at 21:23 EDT Tel [phone], Service support , Chest X-Ray 10/24/17 20:05 IMPRESSION: Prominent cardiac shadow. Minimal basilar atelectasis. Electronically Signed: Eric DO Atul at 21:26 EDT Tel [phone], Service support , Emergency Department Course and Treatment: Patient's leg is concerning for cellulitis versus DVT. She has a history of both in that leg. X-ray was performed to evaluate for any subcutaneous gas or osteomyelitis, and no concerning findings were noted. An ultrasound was ordered to evaluate for DVT. Patient's medication list did note patient is on Xarelto, and thus it is unlikely that she has a DVT as she is [place] on anticoagulation. Workup was performed showing a leukocytosis of 13.1, a normal lactate 1.5, and creatinine 1.45. Patient was started on clindamycin for coverage of cellulitis. She is allergic to penicillins. Given the extent of patient's lower extremity cellulitis in her multiple medical comorbidities, she would benefit from inpatient management of her cellulitis and IV antibiotics. Patient was discussed with the hospitalist and admitted. Treatment Plan: [] Disposition: [] Impression: Right lower extremity cellulitis This note was generated with [employer] dictation software. It may contain incorrect words, spelling, and punctuation that were not noted in review of the chart prior to signing ED Disposition - Plan for ED Patient: Disposition: Acute Care Hospital [facility] Chief Complaint: Cellulitis
[2017-10-24] MEDS: Ondansetron 4 MG/2 ML Vial IV (19:59)
[2017-10-24] MEDS: Morphine 2 MG/ML Syringe IV (19:59)
[2017-10-24 20:04] LABS: Absolute Lymphocyte Count 0.89 X10^3/ul (0.83-4.51); Absolute Neutrophil Count 11.9 X10^3/uL (2.0-7.7); Eosinophil# 0.01 X10^3/uL; Eosinophils% 0.1 % (0-5); Hematocrit 35.2 % (37-47); Hemoglobin 10.2 g/dl (12.0-15.0); Lymphocyte # 0.89 X10^3/ul (4.0); Lymphocyte % 6.8 % (19-41); Mean Corpuscular Hgb 22.5 pg (27.0-32.0); Mean Corpuscular Volume 77.5 fL (81-99); Monocyte# 0.32 X10^3/uL; Monocyte% 2.4 % (0-10); Neutrophil % 90.6 % (47-70); Platelet Count 229 K/mm3 (150-450); RBC Distribution Width CV 19.6 % (11.6-14.6); RBC Distribution Width SD 56.2 fl (35.1-43.9); Red Blood Count 4.54 M/mm3 (4.2-5.4); White Blood Count 13.1 K/mm3 (4.4-11.0)
[2017-10-24 20:05] LABS: POSITIVE COUNT NO; POSITIVE DIFFERENTIAL NO; POSITIVE MORPHOLOGY NO
--- NOTE | 2017-10-24 20:05 | RAD_ITS ---
STUDY: X-RAY CHEST REASON FOR EXAM: Female, 72 years old. Shortness of breath TECHNIQUE: Single frontal view COMPARISON: May 10, 2017 FINDINGS: Stable sternotomy wires. The lungs are expanded. Minimal basilar atelectasis. Prominent cardiac shadow. Normal mediastinum and alee. Normal visualized pulmonary arteries. Normal visualized aortic arch and descending thoracic aorta. Degenerative changes of the visualized thoracic spine. Normal visualized ribs, clavicles, and shoulders. There is no demonstrated abnormality of the visualized soft tissue structures of the upper abdomen. RAD/Chest 1 View (Portable) IMPRESSION: Prominent cardiac shadow. Minimal basilar atelectasis. Electronically Signed: Eric Pollard DO at 21:26 EDT Tel [phone], Service support ,
[2017-10-24 20:07] LABS: International Normalized Ratio 2.4; Prothrombin Time (Protime)PT. 26.2 SECONDS (11.7-14.9)
[2017-10-24 20:08] LABS: Partial Thromboplast Time 33.2 Seconds (24.1-36.2)
[2017-10-24 20:18] LABS: ALB/GLOB Ratio 0.9 RATIO (0.9-2.4); AST(SGOT) 15 U/L (15-37); Alanine Aminotransfer ALT/SGPT 34 U/L (13-56); Albumin, Serum 2.9 g/dL (3.2-5.0); Alkaline Phosphatase 52 U/L (45-117); Anion Gap 10 (5-15); BUN 29 mg/dL (7-18); Calcium,Total 8.8 mg/dL (8.5-10.1); Chloride 105 mmol/L (98-107); Creatinine, Serum 1.45 mg/dL (0.55-1.02); EST Glomerular Filtration Rate 38 mL/min (>60); Est Glom Filt Rate - Afr Amer 45 mL/min (>60); Estimated Creatinine Clearance 24.82 ml/min; Globulin 3.3 g/dL (2.2-4.2); Glucose 104 mg/dL (74-106); Lactic Acid 1.5 mmol/L (0.4-2.0); Potassium 4.3 mmol/L (3.5-5.1); Protein, Total 6.2 g/dL (6.4-8.2); Sodium Level 141 mmol/L (136-145)
[2017-10-24 20:28] LABS: Red Blood Cells-Urine 0 SEEN /hpf (0-5); Squamous Epithelial Cells - UA 0 SEEN /hpf (5-10)
[2017-10-24 20:30] LABS: Color, Urine Yellow (Yellow); Glucose, Dipstick Normal (Normal); Ketone-Dipstick Negative (Negative); Leukocyte Esterase-Dipstick 25 /ul (Negative); Nitrite-Dipstick Negative (Negative); Occult Blood-Urine 25 /ul (Negative); Protein-Dipstick 15 mg/dl (Negative); Specific Gravity, Urine 1.015 (1.002-1.030); Urine Bilirubin Dipstick Negative (Negative); Urine Clarity Clear (Clear); Urine Urobilinogen Normal (Normal)
[2017-10-24 20:39] LABS: Bacteria RARE /hpf (None Seen); Mucous, Urine RARE /hpf (<or=2+); White Blood Cells 0-5 SEEN /hpf (0-5)
[2017-10-24 21:00] VITALS: BP 100/58; PULSE 77; RESP 18; TEMP 36.8; O2SAT 96
--- NOTE | 2017-10-24 21:50 | HP.PCM_ITS ---
Problem List (1) PVD (peripheral vascular disease) Status: Chronic (2) Controlled diabetes mellitus Status: Chronic (3) Presence of stent in coronary artery Status: Chronic Comment: PTCA/stent to CX; PTCA/Stent PTCA/stent to prox RCA 05/06; PTCA/LILY in mid to distal RCA 08/29/12 (4) S/P CABG (coronary artery bypass graft) Status: Chronic Comment: CABG x2 ARREGUIN tp LAD and SVG to OM2 01/02/11 (5) Cellulitis of right leg Status: Acute History of Present Illness Date of Admission: 10/25/17 Chief Complaint: right leg pain and redness x 1 day The patient is a 72 year old F with a significant history of CAD status post CABG and 4 stents; CKD; uncontrolled diabetes; paroxysmal A. fib; peripheral vascular disease with chronic bilateral leg wounds who visits our wound clinic; previous DVT in right leg who presents with 1 day history of excruciating sharp pain to her right leg; redness of her right leg; and increased warmth to the same extremity.. Patient is on chronic home Xarelto. At the emergency department patient was found to have leukocytosis of 13.1; and she was started on clindamycin for right leg cellulitis. DVT of her right leg was done. Past Medical History Past Medical History (Chronic Problems): Chronic Problems (Last Reviewed 05/23/17 @ 15:40 by Lisa Hutton) PVD (peripheral vascular disease) (Chronic) Controlled diabetes mellitus (Chronic) Edema, lower extremity (Chronic) Presence of stent in coronary artery (Chronic) PTCA/stent to CX; PTCA/Stent PTCA/stent to prox RCA 05/06; PTCA/LILY in mid to distal RCA 08/29/12 Atherosclerotic heart disease of [place] coronary artery without angina pectoris (Chronic) PTCA/stent to CX; PTCA/Stent PTCA/stent to prox RCA 05/06; PTCA/LILY in mid to distal RCA 08/29/12; CABG x2 ARREGUIN tp LAD and SVG to OM2 01/02/11 S/P CABG (coronary artery bypass graft) (Chronic ~01/02/11) CABG x2 ARREGUIN tp LAD and SVG to OM2 01/02/11 Paroxysmal atrial fibrillation (Chronic) Hyperlipidemia (Chronic) Hypertension (Chronic) Medical History: Medical History (Last Reviewed 10/25/17 @ 01:47 by Oziel Angel MD) PVD (peripheral vascular disease) (Chronic) I73.9 Ulcer of left lower extremity with fat layer exposed (Acute) L97.922 Controlled diabetes mellitus (Chronic) E11.9 Edema, lower extremity (Chronic) R60.0 Presence of stent in coronary artery (Chronic) Z95.5 PTCA/stent to CX; PTCA/Stent PTCA/stent to prox RCA 05/06; PTCA/LILY in mid to distal RCA 08/29/12 Atherosclerotic heart disease of [place] coronary artery without angina pectoris (Chronic) I25.10 PTCA/stent to CX; PTCA/Stent PTCA/stent to prox RCA 05/06; PTCA/LILY in mid to distal RCA 08/29/12; CABG x2 ARREGUIN tp LAD and SVG to OM2 01/02/11 Paroxysmal atrial fibrillation (Chronic) I48.0 Hyperlipidemia (Chronic) E78.5 Hypertension (Chronic) 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 Diabetic ulcer of both lower extremities E11.622, L97.919, L97.929 History of DVT (deep vein thrombosis) Z86.718 Multiple sclerosis G35 Trigeminal neuralgia G50.0 Type 2 diabetes mellitus E11.9 LAURITA (obstructive sleep apnea) G47.33 Peripheral vascular disease I73.9 Venous insufficiency of both lower extremities I87.2 Allergies ciprofloxacin [From Cipro] Allergy (Verified 10/24/17 18:39) Hives ciprofloxacin HCl [From Cipro] Allergy (Verified 10/24/17 18:39) Hives Latex, Natural Rubber Allergy (Verified 10/24/17 18:39) Rash Penicillins [PCN] Allergy (Verified 10/24/17 18:39) Hives codeine Adverse Reaction (Unknown, Verified 10/24/17 18:39) Unknown adhesive tape Adverse Reaction (Verified 10/24/17 18:39) Rash Home Medications: Ambulatory Orders Medication Instructions Recorded Docusate Sodium [Colace] 100 mg PO DAILY PRN 05/10/17 Gabapentin [Neurontin] 800 mg PO DAILY 05/10/17 Magnesium Oxide 400 mg PO BID 05/10/17 Pantoprazole Sodium [Protonix] 40 mg PO DAILY 05/10/17 Rivaroxaban [Xarelto] 15 mg PO DAILY 05/10/17 metoprolol tartrate 50 mg tablet 50 mg PO BID #180 tab 09/18/17 amiodarone 200 mg tablet 200 mg PO DAILY #90 tab 10/10/17 Duloxetine HCl [Duloxetine HCl] 60 mg PO DAILY 10/24/17 traMADol [Ultram] 50 mg PO BID 10/24/17 Surgical History: Surgical History (Last Reviewed 10/25/17 @ 01:47 by Oziel Angel MD) S/P CABG (coronary artery bypass graft) (Chronic) Onset Date: ~01/02/11 Z95.1 CABG x2 ARREGUIN tp LAD and SVG to OM2 01/02/11 History of cataract surgery Z98.49 History of cholecystectomy Z98.890, Z90.49 History of hernia repair Z98.890, Z87.19 History of tonsillectomy and adenoidectomy Z98.890 History of total hysterectomy Z98.890, Z90.710 Postsurgical percutaneous transluminal coronary angioplasty (PTCA) status Z98.61 PTCA/stent to CX; PTCA/Stent PTCA/stent to prox RCA 05/06; PTCA/LILY in mid to distal RCA 08/29/12 Surgical History: angioplasty, appendectomy, cholecystectomy, coronary bypass surgery, hysterectomy, tonsillectomy, - - R ankle surgery with hardware. placement of stents (cardiac or lower extremity. patient is unsure). excision upper lip carcinoma. Incision and drainage and excisional debridement infected traumatic open hematoma wound right anterior leg (90 cm2) and incision and drainage and excisional debridement infected traumatic open hematoma wound left anterior leg (72 cm2) - 12/29/14. 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 Sibling Family History: Family History (Last Reviewed 10/25/17 @ 01:48 by Oziel Angel MD) Father Heart disease Mother Hypertension Cancer Brother Diabetes Hypertension History Items: Diabetes Review of Systems Constitutional: Denies: Chills, Fever, Weight Change HEENT: Denies: Head Aches, Sinus Congestion, Sinus Drainage Cardiovascular: Denies: Chest Pain, Palpitations Respiratory: Denies: Cough, Shortness of breath at rest, Sputum production Gastrointestinal: Reports: Nausea. Denies: Abdominal Pain, Vomiting Genitourinary: Denies: Dysuria Musculoskeletal: Reports: Leg Pain. Denies: Joint Pain Skin: Reports: Wounds - Bilateral legs. Denies: Rash Neurological: Denies: Numbness, Tingling, Focal weakness Psychiatric: Denies: Anxiety, Depression, Homicidal Ideations, Suicidal Ideations Hematologic/ Lymphatic: Denies: Easy Bruising, Easy Bleeding VTE Information - Inpt Only VTE Present on Admission: No VTE Mechan Device Prophylaxis: None VTE Pharm Prophylaxis ordered?: No Reason prophylaxis not ordered:: Treatment Not Indicated - On home Xarelto therapy which was continued. Patient Problems: Active and Suspected Problems (Last Reviewed 05/23/17 @ 15:40 by Lisa Hutton) Cellulitis of right leg (Acute) - Physical Exam General: Alert, Oriented x3, Cooperative HEENT: Atraumatic, PERRLA, EOMI, Normocephalic Neck: Supple, No JVD, Negative Carotid Bruits Lungs: Clear to auscultation, Normal air movement Cardiovascular: Regular rate Abdomen: Bowel Sounds Present, Soft, Non Tender Extremities: Tenderness - Right leg, - - Erythema of right leg Skin: Ulcer/ Wound - Bilateral leg wounds Musculoskeletal: No Tenderness to Palpation of Joints or Extremities Neurological: Cranial nerves II-XII grossly intact Psych/Mental Status: Normal Affect Vital Signs Temp Pulse Resp BP Pulse Ox 98.3 F 77 18 100/58 L 96 10/24/17 21:00 10/24/17 21:00 10/24/17 21:00 10/24/17 21:00 10/24/17 21:00 Oxygen Flow Rate (L/min) 2 Oxygen Delivery Method Room Air Weight: 103.3 kg Body Mass Index (BMI) 44.4 Finger Stick Blood Glucose 187 Laboratory Tests Past 24 Hrs 10/24/17 10/24/17 10/24/17 19:20 19:20 19:20 WBC 13.1 H RBC 4.54 Hgb 10.2 L Hct 35.2 L MCV 77.5 L MCH 22.5 L MCHC 29.0 L RDW 19.6 H RDW Differential 56.2 H Plt Count 229 MPV 10.0 Immature Gran % (Auto) 0.100 Neut % (Auto) 90.6 H Lymph % (Auto) 6.8 L [place] % (Auto) 2.4 Eos % (Auto) 0.1 Baso % (Auto) 0.0 Absolute Neuts (auto) 11.9 H Absolute Lymphs (auto) 0.89 Total Counted Not Reportable PT 26.2 H INR 2.4 APTT 33.2 Sodium 141 Potassium 4.3 Chloride 105 Carbon Dioxide 26.0 Anion Gap 10 BUN 29 H Creatinine 1.45 H Estim Creat Clear Calc 24.82 Est GFR (MDRD) Af Amer 45 L Est GFR (MDRD) Non-Af 38 L BUN/Creatinine Ratio 20.0 Glucose 104 Lactic Acid Calcium 8.8 Total Bilirubin 0.90 AST 15 ALT 34 Alkaline Phosphatase 52 Troponin I 0.017 Total Protein 6.2 L Albumin 2.9 L Globulin 3.3 Albumin/Globulin Ratio 0.9 Urine Color Urine Clarity Urine pH Ur Specific [place] Urine Protein Urine Glucose (UA) Urine Ketones Urine Occult Blood Urine Nitrite Urine Bilirubin Urine Urobilinogen Ur Leukocyte Esterase Urine RBC Urine WBC Ur Squamous Epith Cells Urine Bacteria Urine Mucus 10/24/17 10/24/17 19:20 20:20 WBC RBC Hgb Hct MCV MCH MCHC RDW RDW Differential Plt Count MPV Immature Gran % (Auto) Neut % (Auto) Lymph % (Auto) [place] % (Auto) Eos % (Auto) Baso % (Auto) Absolute Neuts (auto) Absolute Lymphs (auto) Total Counted PT INR APTT Sodium Potassium Chloride Carbon Dioxide Anion Gap BUN Creatinine Estim Creat Clear Calc Est GFR (MDRD) Af Amer Est GFR (MDRD) Non-Af BUN/Creatinine Ratio Glucose Lactic Acid 1.5 Calcium Total Bilirubin AST ALT Alkaline Phosphatase Troponin I Total Protein Albumin Globulin Albumin/Globulin Ratio Urine Color Yellow Urine Clarity Clear Urine pH 5.0 Ur Specific [place] 1.015 Urine Protein 15 H Urine Glucose (UA) Normal Urine Ketones Negative Urine Occult Blood 25 H Urine Nitrite Negative Urine Bilirubin Negative Urine Urobilinogen Normal Ur Leukocyte Esterase 25 H Urine RBC 0 SEEN Urine WBC 0-5 SEEN Ur Squamous Epith Cells 0 SEEN Urine Bacteria RARE Urine Mucus RARE Assessment/Plan All Active Problems (Last Reviewed 05/23/17 @ 15:40 by Lisa Hutton) Ulcer of right lower extremity with fat layer exposed (Acute) Cellulitis of right leg (Acute) Ulcer of left lower extremity with fat layer exposed (Acute) The patient is a 72 year old F with a significant history of CAD status post CABG and 4 stents; CKD stage IIIB; controlled diabetes; paroxysmal A. fib; peripheral vascular disease with chronic bilateral leg wounds who visits our wound clinic; previous DVT in right leg who presents with 1 day history of excruciating sharp pain to her right leg; redness of her right leg; and increased warmth to the same extremity concerning for right leg cellulitis.. Right leg cellulitis. Received clindamycin at emergency department. Patient is allergic to penicillin Blood cultures are pending. Vancomycin and Unasyn ordered. Trend CBC and BMP Home tramadol for pain As needed morphine Doppler ultrasound of right leg pending. Bilateral leg wounds Wound care consult. Diabetes Controlled Patient reported previously she was admitted for but now she is no longer on metformin. Trend BMP. Hypertension Blood pressure within goal at the time of admission Metoprolol continued. Trend blood pressures. CKD stage IIIb Her creatinine is stable compared to baseline. Paroxysmal A. fib Patient is sinus rhythm at the time of admission. Amiodarone and Xarelto continued. DVT prophylaxis Not indicated. Patient on Xarelto Code Visit Inpatient E&M: 67159 Init Hosp L3
--- NOTE | 2017-10-24 21:56 | US_ITS ---
STUDY: VENOUS DOPPLER ULTRASOUND - RIGHT LOWER EXTREMITY REASON FOR EXAM: Female, 72 years old. Right-sided leg pain. TECHNIQUE: Ultrasound evaluation of the deep vein system to include mota-scale imaging and compression was performed. Mota-scale imaging and Doppler sonographic evaluation, including duplex spectral analysis and qualitative color flow sonography, was performed. Study is technically limited due to patient condition. COMPARISON: None. FINDINGS: Common Femoral Vein: Normal compression, spontaneity and augmentation. Normal color Doppler. Common Femoral Vein/Greater Saphenous Junction: Normal compression, spontaneity and augmentation. Normal color Doppler. Femoral Proximal: Normal compression. Femoral Middle: Normal compression, spontaneity and augmentation. Normal color Doppler. Femoral Distal: Normal compression. Popliteal Vein: Normal color Doppler. Posterior Tibial Vein: Normal color Doppler. Peroneal Vein: Normal color Doppler. This is a technically incomplete study and deep venous thrombosis is not excluded. US/Venous Duplex Imag/Limited/Uni IMPRESSION: No sonographic evidence for deep venous thrombosis of the right common femoral or superficial femoral vein. Electronically Signed: Leix Chand MD at 2:18 EDT , Service support ,
[2017-10-24 22:42] VITALS: O2SAT 95
[2017-10-24 23:09] VITALS: BMI 42.3; BMI 42.4
[2017-10-24 23:30] VITALS: BP 110/40; PULSE 73; RESP 20; TEMP 36.3; O2SAT 94
[2017-10-25] VITALS (7 sets, daily range): BP systolic 114–134; BP diastolic 53–73; PULSE 61–67; RESP 16–18; TEMP 36.6–37.1; O2SAT 93–96
[2017-10-25] MEDS: Morphine 2 MG/ML Syringe IV ×3 (00:14→11:56)
--- NOTE | 2017-10-25 01:51 | PCM.RX.CS ---
Consult Pharmacy has been consulted to manage selected antiobiotic: Vancomycin Type of Consult: New start Suspected Infection: Skin/Soft tissue Prior Doses of Antibiotics Received/Current Regimen: Medications Vancomycin HCl 750 mg/ Sodium (Chloride) 265 mls @ 250 mls/hr IV Q24H MELISSA Discontinued Medications Vancomycin HCl 1,500 mg/ (Sodium Chloride) 530 mls @ 250 mls/hr IV X1 ONE Stop: 10/25/17 01:37 Last Admin: 10/25/17 00:06 Dose: 250 mls/hr Labs: Sodium 141 mmol/L (136-145) 10/24/17 19:20 Potassium 4.3 mmol/L (3.5-5.1) 10/24/17 19:20 Chloride 105 mmol/L (98-107) 10/24/17 19:20 Carbon Dioxide 26.0 mmol/L (21.0-32.0) 10/24/17 19:20 Anion Gap 10 (5-15) 10/24/17 19:20 BUN 29 mg/dL (7-18) H 10/24/17 19:20 Creatinine 1.45 mg/dL (0.55-1.02) H 10/24/17 19:20 Est GFR (MDRD) Af Amer 45 mL/min (>60) L 10/24/17 19:20 Est GFR (MDRD) Non-Af 38 mL/min (>60) L 10/24/17 19:20 BUN/Creatinine Ratio 20.0 RATIO (10-20) 10/24/17 19:20 Glucose 104 mg/dL (74-106) 10/24/17 19:20 Weight used for dosin.4 kg Estimated Creatinine Clearance: 24.8 Goal Trough: 10-15 mcg/mL Pharmacy Plan for Drug Dosing: Pharmacy Service will continue to monitor and adjust dosing as required. Follow-Up Labs: Trough Vancomycin Labs to be done on [date and time ordered]: 10/26/17 @[id number]
[2017-10-25 06:33] LABS: Absolute Lymphocyte Count 0.85 X10^3/ul (0.83-4.51); Absolute Neutrophil Count 13.7 X10^3/uL (2.0-7.7); Basophil# 0.02 X10^3/uL; Basophil% 0.1 % (0-1); Eosinophil# 0.02 X10^3/uL; Eosinophils% 0.1 % (0-5); Hematocrit 30.8 % (37-47); Hemoglobin 9.1 g/dl (12.0-15.0); Lymphocyte # 0.85 X10^3/ul (4.0); Lymphocyte % 5.6 % (19-41); Mean Corp Hgb Conc 29.5 g/gl (32-36); Mean Corpuscular Hgb 23.2 pg (27.0-32.0); Mean Corpuscular Volume 78.6 fL (81-99); Mean Platelet Vol. 10.1 fl (6.2-12.0); Monocyte# 0.55 X10^3/uL; Monocyte% 3.6 % (0-10); Neutrophil # 13.66 X10^3/uL (2.7-7.7); Neutrophil % 90.4 % (47-70); Platelet Count 216 K/mm3 (150-450); RBC Distribution Width SD 56.1 fl (35.1-43.9); Red Blood Count 3.92 M/mm3 (4.2-5.4); White Blood Count 15.1 K/mm3 (4.4-11.0)
[2017-10-25 06:34] LABS: POSITIVE COUNT NO; POSITIVE DIFFERENTIAL NO; POSITIVE MORPHOLOGY NO
[2017-10-25 06:45] LABS: Anion Gap 7 (5-15); BUN 30 mg/dL (7-18); BUN/Creat Ratio 20.5 RATIO (10-20); Calcium,Total 8.8 mg/dL (8.5-10.1); Chloride 107 mmol/L (98-107); Creatinine, Serum 1.46 mg/dL (0.55-1.02); EST Glomerular Filtration Rate 37 mL/min (>60); Est Glom Filt Rate - Afr Amer 45 mL/min (>60); Estimated Creatinine Clearance 24.65 ml/min; Glucose 170 mg/dL (74-106); Potassium 4.8 mmol/L (3.5-5.1); Sodium Level 141 mmol/L (136-145)
[2017-10-25] MEDS: 0.9% NaCl Peripheral Flush Adult/Peds IV ×3 (06:56→23:51)
[2017-10-25 07:31] LABS: M R Staph aureus DNA By PCR Negative (Negative); Probe Check PASS; Specimen Processing Control PASS; Staph aureus DNA By PCR NEGATIVE (Negative)
[2017-10-25] MEDS: Rivaroxaban 15 MG Tablet PO (08:54)
[2017-10-25] MEDS: Amiodarone 200 MG Tablet PO (09:06)
[2017-10-25] MEDS: Pantoprazole Sodium 40 MG Tablet PO (09:06)
[2017-10-25] MEDS: Metoprolol Tartrate 50 MG Tablet PO ×2 (09:06→21:54)
[2017-10-25] MEDS: Magnesium Oxide 400 MG Tablet PO ×2 (09:06→21:54)
[2017-10-25] MEDS: Gabapentin 800 MG Tablet PO (09:06)
[2017-10-25] MEDS: DULoxetine Hcl 60 MG Capsule PO (09:06)
[2017-10-25] MEDS: traMADol 50 MG Tablet PO ×2 (09:06→21:54)
[2017-10-25] MEDS: Glucerna Shake 120 ML LIQUID PO ×4 (09:09→21:55)
--- NOTE | 2017-10-25 10:27 | NURSING ---
wound photo: right lower leg
--- NOTE | 2017-10-25 10:27 | NURSING ---
wound photo: right dorsal foot
--- NOTE | 2017-10-25 10:28 | NURSING ---
wound photo: left lower leg
--- NOTE | 2017-10-25 10:38 | PCM.PN.HOSP ---
Patient Problems: Active and Suspected Problems (Last Reviewed 10/25/17 @ 01:47 by Oziel Angel MD) Cellulitis of right leg (Acute) Subjective: Still with pain RLE, decreased redness, however. Vitals/I&O's: Vital Signs Temp Pulse Resp BP Pulse Ox 36.8 C 66 16 118/61 93 10/25/17 05:56 10/25/17 09:06 10/25/17 05:56 10/25/17 05:56 10/25/17 09:30 Oxygen Delivery Method Room Air Weight: 98.4 kg Body Mass Index (BMI) 42.3 Intake and Output for Last 24 Hours 10/23/17 10/24/17 10/25/17 23:59 23:59 23:59 Intake Total 650 / 650 Balance 650 / 650 General: Alert, No apparent distress HEENT: Atraumatic, Normocephalic Oral: Moist Mucosa, No Gingival or Mucosal Lesions/ Ulcerations Neck: No Nodes, Thyroid Normal Size and Texture Lungs: Clear to auscultation, Normal air movement, No rhonchi, No wheeze Cardiovascular: Regular rate, Regular Rhythm, Normal S1, Normal S2, No murmurs Abdomen: Bowel Sounds Present, Soft, Non Tender, Non-Distended, No Hepato-splenomegaly Extremities: No edema, No Calf Tenderness, Tenderness - to very light palpation Skin: No rashes, No breakdown, - - faint erythema RLE Musculoskeletal: No Tenderness to Palpation of Joints or Extremities, No Muscle Wasting Psych/Mental Status: Normal Affect, Appropriate Laboratory Results 10/25/17 05:35: S.aureus Protein A PCR NEGATIVE, MRSA (PCR) Negative 10/25/17 06:00: Sodium 141, Potassium 4.8, Chloride 107, Carbon Dioxide 27.0, Anion Gap 7, BUN 30 H, Creatinine 1.46 H, Estim Creat Clear Calc 24.65, Est GFR (MDRD) Af Amer 45 L, Est GFR (MDRD) Non-Af 37 L, BUN/Creatinine Ratio 20.5 H, Glucose 170 H, Calcium 8.8 10/25/17 06:00: WBC 15.1 H, RBC 3.92 L, Hgb 9.1 L, Hct 30.8 L, MCV 78.6 L, MCH 23.2 L, MCHC 29.5 L, RDW 20.0 H, RDW Differential 56.1 H, Plt Count 216, MPV 10.1, Immature Gran % (Auto) 0.200, Neut % (Auto) 90.4 H, Lymph % (Auto) 5.6 L, Eddy % (Auto) 3.6, Eos % (Auto) 0.1, Baso % (Auto) 0.1, Absolute Neuts (auto) 13.7 H, Absolute Lymphs (auto) 0.85, Total Counted Not Reportable Current Medications Amiodarone HCl (Cordarone) 200 mg PO DAILY [facility] Last Admin: 10/25/17 09:06 Dose: 200 mg Bisacodyl (Dulcolax) 5 mg PO DAILY PRN PRN PRN Reason: Constipation Docusate Sodium (Colace) 100 mg PO DAILY PRN PRN Reason: Constipation Duloxetine HCl (Cymbalta) 60 mg PO DAILY [facility] Last Admin: 10/25/17 09:06 Dose: 60 mg Gabapentin (Neurontin) 800 mg PO DAILY [facility] Last Admin: 10/25/17 09:06 Dose: 800 mg Clindamycin Phosphate 600 mg/ (Dextrose) 54 mls @ 100 mls/hr IV Q8 [facility] Last Admin: 10/25/17 06:01 Dose: 100 mls/hr Vancomycin HCl 750 mg/ Sodium (Chloride) 265 mls @ 250 mls/hr IV Q24H [facility] Magnesium Hydroxide (Milk Of Magnesia) 30 ml PO DAILY PRN PRN PRN Reason: Constipation Magnesium Oxide (Mag-Ox 400) 400 mg PO BID [facility] Last Admin: 10/25/17 09:06 Dose: 400 mg Metoprolol Tartrate (Lopressor (Beta Tommy)) 50 mg PO BID [facility] Last Admin: 10/25/17 09:06 Dose: 50 mg Morphine Sulfate () 1 - 2 mg IV Q4H PRN PRN PRN Reason: SEVERE PAIN (6-10/10) Last Admin: 10/25/17 06:56 Dose: 2 mg Nutritional Formula (Lactose Free) (Glucerna Shake) 120 ml PO 4X/DAY [facility] Last Admin: 10/25/17 09:09 Dose: 120 ml Ondansetron HCl (Zofran) 4 mg IV Q8H PRN PRN PRN Reason: Nausea Pantoprazole Sodium (Protonix) 40 mg PO DAILY [facility] Last Admin: 10/25/17 09:06 Dose: 40 mg Rivaroxaban (Xarelto) 15 mg PO DAILYCM [facility] Last Admin: 10/25/17 08:54 Dose: 15 mg Sodium Chloride () 5 - 30 ml IV UD PRN PRN Reason: SALINE FLUSH Last Admin: 10/25/17 06:56 Dose: 10 ml Tramadol HCl (Ultram) 50 mg PO BID [facility] Last Admin: 10/25/17 09:06 Dose: 50 mg Medical Necessity - Tobacco Use Smoking Status: Former smoker Assessment/Plan All Active Problems (Last Reviewed 10/25/17 @ 01:47 by Oziel Angel MD) Ulcer of right lower extremity with fat layer exposed (Acute) Cellulitis of right leg (Acute) Ulcer of left lower extremity with fat layer exposed (Acute) 1. RLE cellulitis pt with exquisite tenderness. doubt necrotizing fasciitis, but will with check a CT of LE continue with Vancomycin, DC clindamycin. 2. pAfib continue Xarelto continue Amiodarone 3. DM2 fair control add SSI 4. Sepsis POA 2/2 RLE cellulitis resolved 5. DVT proph: already anticoagulated Code Visit Inpatient E&M: 06243 Subs Hosp L2
--- NOTE | 2017-10-25 10:45 | PN_ITS ---
Patient Problems: Active and Suspected Problems (Last Reviewed 10/25/17 @ 01:47 by Oziel Angel MD) Cellulitis of right leg (Acute) Subjective: Still with pain RLE, decreased redness, however. Vitals/I&O's: Vital Signs Temp Pulse Resp BP Pulse Ox 36.8 C 66 16 118/61 93 10/25/17 05:56 10/25/17 09:06 10/25/17 05:56 10/25/17 05:56 10/25/17 09:30 Oxygen Delivery Method Room Air Weight: 98.4 kg Body Mass Index (BMI) 42.3 Intake and Output for Last 24 Hours 10/23/17 10/24/17 10/25/17 23:59 23:59 23:59 Intake Total 650 / 650 Balance 650 / 650 General: Alert, No apparent distress HEENT: Atraumatic, Normocephalic Oral: Moist Mucosa, No Gingival or Mucosal Lesions/ Ulcerations Neck: No Nodes, Thyroid Normal Size and Texture Lungs: Clear to auscultation, Normal air movement, No rhonchi, No wheeze Cardiovascular: Regular rate, Regular Rhythm, Normal S1, Normal S2, No murmurs Abdomen: Bowel Sounds Present, Soft, Non Tender, Non-Distended, No Hepato- splenomegaly Extremities: No edema, No Calf Tenderness, Tenderness - to very light palpation Skin: No rashes, No breakdown, - - faint erythema RLE Musculoskeletal: No Tenderness to Palpation of Joints or Extremities, No Muscle Wasting Psych/Mental Status: Normal Affect, Appropriate Laboratory Results 10/25/17 05:35: S.aureus Protein A PCR NEGATIVE, MRSA (PCR) Negative 10/25/17 06:00: Sodium 141, Potassium 4.8, Chloride 107, Carbon Dioxide 27.0, Anion Gap 7, BUN 30 H, Creatinine 1.46 H, Estim Creat Clear Calc 24.65, Est GFR (MDRD) Af Amer 45 L, Est GFR (MDRD) Non-Af 37 L, BUN/Creatinine Ratio 20.5 H, Glucose 170 H, Calcium 8.8 10/25/17 06:00: WBC 15.1 H, RBC 3.92 L, Hgb 9.1 L, Hct 30.8 L, MCV 78.6 L, MCH 23.2 L, MCHC 29.5 L, RDW 20.0 H, RDW Differential 56.1 H, Plt Count 216, MPV 10.1, Immature Gran % (Auto) 0.200, Neut % (Auto) 90.4 H, Lymph % (Auto) 5.6 L, Logan % (Auto) 3.6, Eos % (Auto) 0.1, Baso % (Auto) 0.1, Absolute Neuts (auto) 13.7 H, Absolute Lymphs (auto) 0.85, Total Counted Not Reportable Current Medications Amiodarone HCl (Cordarone) 200 mg PO DAILY [facility] Last Admin: 10/25/17 09:06 Dose: 200 mg Bisacodyl (Dulcolax) 5 mg PO DAILY PRN PRN PRN Reason: Constipation Docusate Sodium (Colace) 100 mg PO DAILY PRN PRN Reason: Constipation Duloxetine HCl (Cymbalta) 60 mg PO DAILY [facility] Last Admin: 10/25/17 09:06 Dose: 60 mg Gabapentin (Neurontin) 800 mg PO DAILY [facility] Last Admin: 10/25/17 09:06 Dose: 800 mg Clindamycin Phosphate 600 mg/ (Dextrose) 54 mls @ 100 mls/hr IV Q8 [facility] Last Admin: 10/25/17 06:01 Dose: 100 mls/hr Vancomycin HCl 750 mg/ Sodium (Chloride) 265 mls @ 250 mls/hr IV Q24H [facility] Magnesium Hydroxide (Milk Of Magnesia) 30 ml PO DAILY PRN PRN PRN Reason: Constipation Magnesium Oxide (Mag-Ox 400) 400 mg PO BID [facility] Last Admin: 10/25/17 09:06 Dose: 400 mg Metoprolol Tartrate (Lopressor (Beta Tommy)) 50 mg PO BID [facility] Last Admin: 10/25/17 09:06 Dose: 50 mg Morphine Sulfate () 1 - 2 mg IV Q4H PRN PRN PRN Reason: SEVERE PAIN (6-10/10) Last Admin: 10/25/17 06:56 Dose: 2 mg Nutritional Formula (Lactose Free) (Glucerna Shake) 120 ml PO 4X/DAY [facility] Last Admin: 10/25/17 09:09 Dose: 120 ml Ondansetron HCl (Zofran) 4 mg IV Q8H PRN PRN PRN Reason: Nausea Pantoprazole Sodium (Protonix) 40 mg PO DAILY [facility] Last Admin: 10/25/17 09:06 Dose: 40 mg Rivaroxaban (Xarelto) 15 mg PO DAILYCM [facility] Last Admin: 10/25/17 08:54 Dose: 15 mg Sodium Chloride () 5 - 30 ml IV UD PRN PRN Reason: SALINE FLUSH Last Admin: 10/25/17 06:56 Dose: 10 ml Tramadol HCl (Ultram) 50 mg PO BID [facility] Last Admin: 10/25/17 09:06 Dose: 50 mg Medical Necessity - Tobacco Use Smoking Status: Former smoker Assessment/Plan All Active Problems (Last Reviewed 10/25/17 @ 01:47 by zOiel Angel MD) Ulcer of right lower extremity with fat layer exposed (Acute) Cellulitis of right leg (Acute) Ulcer of left lower extremity with fat layer exposed (Acute) 1. RLE cellulitis * pt with exquisite tenderness. * doubt necrotizing fasciitis, but will with check a CT of LE * continue with Vancomycin, DC clindamycin. 2. pAfib * continue Xarelto * continue Amiodarone 3. DM2 * fair control * add SSI 4. Sepsis * POA * 2/2 RLE cellulitis * resolved 5. DVT proph: already anticoagulated Code Visit Inpatient E&M: 46025 Subs Hosp L2
--- NOTE | 2017-10-25 10:47 | CT_ITS ---
STUDY: CT LOWER EXTREMITY WITHOUT CONTRAST RIGHT REASON FOR EXAM: Female, 72 years old. Right lower extremity cellulitis. Prior right ankle ORIF. RADIATION DOSAGE (If Supplied By Facility): CTDIvol = ( 15.35 ) mGy, DLP = ( 915.3 ) mGycm. Individualized dose optimization techniques were used for this CT.? TECHNIQUE: Multiple axial tomographic images were obtained from the knee joint down to the ankle joint without intravenous contrast administration. COMPARISON: None. FINDINGS: There is evidence of diffuse increased markings with areas of confluence in the subcutaneous tissues with overlying skin thickening. This is worse along the posterior medial aspect of the right leg. No focal abscess or fluid collection is seen. There is evidence of a soft tissue defect along the anterior aspect of the mid right leg. Clinical correlation is recommended. Small knee joint effusion. Prior open reduction and fixation of the distal fibula. There is good alignment. CT/Extremity Lower without Contra IMPRESSION: Findings in keeping with diffuse subcutaneous edema and skin thickening with no focal fluid collection or abscess collection. Soft tissue defect along the anterior aspect of the mid leg. Electronically Signed: Milo Hughes MD at 12:41 EDT Tel [phone], Service support ,
--- NOTE | 2017-10-25 11:54 | CASEMGMT ---
RN CM Note- attempted to see pt to complete RN CM assessment. Pt not available.
[2017-10-25 11:56] LABS: Bedside Glucose 131 mg/dL (70-110)
--- NOTE | 2017-10-25 13:00 | CASEMGMT ---
INÉS GLEASON Assessment completed. DC PLAN: Home with resume of HHS through [facility]. -Pt has home health through [facility] PH: FX: INÉS GLEASON called to [facility] to notify of admission. Her services are for RN M/W for dressing changes, and [facility] . -Sister provides transportation. -Pt is on IV antibiotics here, however not determined if IV antibiotics are needed at home yet. -INÉS GLEASON inquired of [facility] if they could take pt with IV antibiotics if needed, they will have to see based on on what is ordered. Eduarda MOSELEYN RN ACM
--- NOTE | 2017-10-25 15:28 | CASEMGMT ---
Social Work Note SW in to speak with pt regarding advanced directives. Pt states that she has completed Living Will and HCPOA and has submitted the documents to [facility]. SW explained that documents are not scanned in system. Pt states that her daughter in law may know where the documents are at and could bring them to [facility]. Digna Palumbo LEATHER CRAFTER, MANAGER DELI
[2017-10-25 15:31] LABS: Bedside Glucose 153 mg/dL (70-110)
[2017-10-25 22:10] LABS: Bedside Glucose 150 mg/dL (70-110)
[2017-10-26] VITALS (10 sets, daily range): BP systolic 118–143; BP diastolic 54–69; PULSE 53–67; RESP 16–18; TEMP 36.6–36.8; O2SAT 92–97
[2017-10-26 06:20] LABS: Absolute Neutrophil Count 12.5 X10^3/uL (2.0-7.7); Basophil# 0.01 X10^3/uL; Basophil% 0.1 % (0-1); Eosinophil# 0.07 X10^3/uL; Eosinophils% 0.5 % (0-5); Hemoglobin 9.2 g/dl (12.0-15.0); Mean Corp Hgb Conc 28.8 g/gl (32-36); Mean Corpuscular Hgb 22.5 pg (27.0-32.0); Mean Corpuscular Volume 78.2 fL (81-99); Mean Platelet Vol. 10.1 fl (6.2-12.0); Monocyte# 0.87 X10^3/uL; Monocyte% 6.2 % (0-10); Neutrophil # 12.45 X10^3/uL (2.7-7.7); Neutrophil % 88.1 % (47-70); Platelet Count 257 K/mm3 (150-450); RBC Distribution Width CV 19.9 % (11.6-14.6); RBC Distribution Width SD 57.6 fl (35.1-43.9); Red Blood Count 4.09 M/mm3 (4.2-5.4); White Blood Count 14.1 K/mm3 (4.4-11.0)
[2017-10-26 06:21] LABS: POSITIVE COUNT NO; POSITIVE DIFFERENTIAL NO; POSITIVE MORPHOLOGY NO
[2017-10-26 06:36] LABS: Anion Gap 10 (5-15); BUN 38 mg/dL (7-18); BUN/Creat Ratio 23.6 RATIO (10-20); Calcium,Total 9.4 mg/dL (8.5-10.1); Chloride 107 mmol/L (98-107); Creatinine, Serum 1.61 mg/dL (0.55-1.02); EST Glomerular Filtration Rate 33 mL/min (>60); Est Glom Filt Rate - Afr Amer 40 mL/min (>60); Estimated Creatinine Clearance 22.35 ml/min; Glucose 127 mg/dL (74-106); Potassium 4.8 mmol/L (3.5-5.1); Sodium Level 142 mmol/L (136-145)
[2017-10-26] MEDS: Rivaroxaban 15 MG Tablet PO (09:08)
[2017-10-26] MEDS: DULoxetine Hcl 60 MG Capsule PO (09:09)
[2017-10-26] MEDS: Gabapentin 800 MG Tablet PO (09:09)
[2017-10-26] MEDS: Amiodarone 200 MG Tablet PO (09:09)
[2017-10-26] MEDS: Magnesium Oxide 400 MG Tablet PO ×2 (09:09→21:19)
[2017-10-26] MEDS: Metoprolol Tartrate 50 MG Tablet PO ×2 (09:09→21:19)
[2017-10-26] MEDS: Glucerna Shake 120 ML LIQUID PO ×3 (09:09→17:53)
[2017-10-26] MEDS: Pantoprazole Sodium 40 MG Tablet PO (09:10)
[2017-10-26 09:11] LABS: Bedside Glucose 128 mg/dL (70-110)
[2017-10-26] MEDS: traMADol 50 MG Tablet PO ×2 (09:12→21:18)
--- NOTE | 2017-10-26 10:28 | PCM.PN.HOSP ---
Patient Problems: Active and Suspected Problems (Last Reviewed 10/25/17 @ 01:47 by Oziel Angel MD) Cellulitis of right leg (Acute) Subjective: feels leg is doing better. still red, but less tender. Vitals/I&O's: Vital Signs Temp Pulse Resp BP Pulse Ox 36.6 C 58 L 18 127/54 H 97 10/26/17 08:57 10/26/17 09:09 10/26/17 08:57 10/26/17 09:09 10/26/17 08:57 Oxygen Delivery Method Room Air Weight: 98.4 kg Body Mass Index (BMI) 42.3 Intake and Output for Last 24 Hours 10/24/17 10/25/17 10/26/17 23:59 23:59 23:59 Intake Total 1170 / 1170 750 / 750 Output Total 200 / 200 Balance 1170 / 1170 550 / 550 General: Alert, Cooperative, No apparent distress HEENT: Atraumatic, Normocephalic Oral: Moist Mucosa, No Gingival or Mucosal Lesions/ Ulcerations Neck: No Nodes, Thyroid Normal Size and Texture Lungs: Clear to auscultation, Normal air movement, No rhonchi, No wheeze Cardiovascular: Regular rate, Regular Rhythm, Normal S1, Normal S2, No murmurs Abdomen: Bowel Sounds Present, Soft, Non Tender, Non-Distended, No Hepato-splenomegaly Extremities: No Calf Tenderness, Edema Skin: - - slight erythema RLE medially at knee, still with exquisite tenderness to palpation. Musculoskeletal: No Tenderness to Palpation of Joints or Extremities, No Muscle Wasting Psych/Mental Status: Normal Affect, Appropriate Laboratory Results 10/25/17 11:50: POC Glucose 131 H 10/25/17 15:22: POC Glucose 153 H 10/25/17 21:58: POC Glucose 150 H 10/26/17 05:50: WBC 14.1 H, RBC 4.09 L, Hgb 9.2 L, Hct 32.0 L, MCV 78.2 L, MCH 22.5 L, MCHC 28.8 L, RDW 19.9 H, RDW Differential 57.6 H, Plt Count 257, MPV 10.1, Immature Gran % (Auto) 0.100, Neut % (Auto) 88.1 H, Lymph % (Auto) 5.0 L, Crenshaw % (Auto) 6.2, Eos % (Auto) 0.5, Baso % (Auto) 0.1, Absolute Neuts (auto) 12.5 H, Absolute Lymphs (auto) 0.70 L, Total Counted Not Reportable 10/26/17 05:50: Sodium 142, Potassium 4.8, Chloride 107, Carbon Dioxide 25.0, Anion Gap 10, BUN 38 H, Creatinine 1.61 H, Estim Creat Clear Calc 22.35, Est GFR (MDRD) Af Amer 40 L, Est GFR (MDRD) Non-Af 33 L, BUN/Creatinine Ratio 23.6 H, Glucose 127 H, Calcium 9.4 10/26/17 08:45: POC Glucose 128 H Current Medications Amiodarone HCl (Cordarone) 200 mg PO DAILY [facility] Last Admin: 10/26/17 09:09 Dose: 200 mg Bisacodyl (Dulcolax) 5 mg PO DAILY PRN PRN PRN Reason: Constipation Dextrose (D50w Syringe) 0 gm IV X1 PRN; Protocol PRN Reason: Hypoglycemia Docusate Sodium (Colace) 100 mg PO DAILY PRN PRN Reason: Constipation Duloxetine HCl (Cymbalta) 60 mg PO DAILY [facility] Last Admin: 10/26/17 09:09 Dose: 60 mg Gabapentin (Neurontin) 800 mg PO DAILY [facility] Last Admin: 10/26/17 09:09 Dose: 800 mg Glucagon () 1 mg IM .X1 PRN PRN Reason: Hypoglycemia Vancomycin HCl 750 mg/ Sodium (Chloride) 265 mls @ 250 mls/hr IV Q24H [facility] Last Admin: 10/25/17 23:51 Dose: 250 mls/hr Insulin Human Lispro (Humalog Kwikpen (Bkc)) 0 unit SQ TIDAC MELISSA PRN Reason: Protocol Last Admin: 10/26/17 09:03 Dose: Not Given Magnesium Hydroxide (Milk Of Magnesia) 30 ml PO DAILY PRN PRN PRN Reason: Constipation Magnesium Oxide (Mag-Ox 400) 400 mg PO BID [facility] Last Admin: 10/26/17 09:09 Dose: 400 mg Metoprolol Tartrate (Lopressor (Beta Tommy)) 50 mg PO BID [facility] Last Admin: 10/26/17 09:09 Dose: 50 mg Morphine Sulfate () 1 - 2 mg IV Q4H PRN PRN PRN Reason: SEVERE PAIN (6-10/10) Last Admin: 10/25/17 11:56 Dose: 2 mg Nutritional Formula (Lactose Free) (Glucerna Shake) 120 ml PO 4X/DAY [facility] Last Admin: 10/26/17 09:09 Dose: 120 ml Ondansetron HCl (Zofran) 4 mg IV Q8H PRN PRN PRN Reason: Nausea Pantoprazole Sodium (Protonix) 40 mg PO DAILY [facility] Last Admin: 10/26/17 09:10 Dose: 40 mg Rivaroxaban (Xarelto) 15 mg PO DAILYCM [facility] Last Admin: 10/26/17 09:08 Dose: 15 mg Sodium Chloride () 5 - 30 ml IV UD PRN PRN Reason: SALINE FLUSH Last Admin: 10/25/17 23:51 Dose: 10 ml Tramadol HCl (Ultram) 50 mg PO BID [facility] Last Admin: 10/26/17 09:12 Dose: 50 mg Medical Necessity - Tobacco Use Smoking Status: Former smoker Assessment/Plan All Active Problems (Last Reviewed 10/25/17 @ 01:47 by Oziel Angel MD) Ulcer of right lower extremity with fat layer exposed (Acute) Cellulitis of right leg (Acute) Ulcer of left lower extremity with fat layer exposed (Acute) 1. RLE cellulitis improved, but pt with exquisite tenderness. CT leg negative for nec fas, abscess. continue with Vancomycin, DC clindamycin. check MRSA given severe tenderness, will watch and continue with IV abx overnight. 2. pAfib continue Xarelto continue Amiodarone 3. DM2 fair control add SSI 4. Sepsis POA 2/2 RLE cellulitis resolved 5. DVT proph: already anticoagulated Code Visit Inpatient E&M: 29453 Subs Hosp L2
--- NOTE | 2017-10-26 10:32 | PN_ITS ---
Patient Problems: Active and Suspected Problems (Last Reviewed 10/25/17 @ 01:47 by Oziel Angel MD) Cellulitis of right leg (Acute) Subjective: feels leg is doing better. still red, but less tender. Vitals/I&O's: Vital Signs Temp Pulse Resp BP Pulse Ox 36.6 C 58 L 18 127/54 H 97 10/26/17 08:57 10/26/17 09:09 10/26/17 08:57 10/26/17 09:09 10/26/17 08:57 Oxygen Delivery Method Room Air Weight: 98.4 kg Body Mass Index (BMI) 42.3 Intake and Output for Last 24 Hours 10/24/17 10/25/17 10/26/17 23:59 23:59 23:59 Intake Total 1170 / 1170 750 / 750 Output Total 200 / 200 Balance 1170 / 1170 550 / 550 General: Alert, Cooperative, No apparent distress HEENT: Atraumatic, Normocephalic Oral: Moist Mucosa, No Gingival or Mucosal Lesions/ Ulcerations Neck: No Nodes, Thyroid Normal Size and Texture Lungs: Clear to auscultation, Normal air movement, No rhonchi, No wheeze Cardiovascular: Regular rate, Regular Rhythm, Normal S1, Normal S2, No murmurs Abdomen: Bowel Sounds Present, Soft, Non Tender, Non-Distended, No Hepato- splenomegaly Extremities: No Calf Tenderness, Edema Skin: - - slight erythema RLE medially at knee, still with exquisite tenderness to palpation. Musculoskeletal: No Tenderness to Palpation of Joints or Extremities, No Muscle Wasting Psych/Mental Status: Normal Affect, Appropriate Laboratory Results 10/25/17 11:50: POC Glucose 131 H 10/25/17 15:22: POC Glucose 153 H 10/25/17 21:58: POC Glucose 150 H 10/26/17 05:50: WBC 14.1 H, RBC 4.09 L, Hgb 9.2 L, Hct 32.0 L, MCV 78.2 L, MCH 22.5 L, MCHC 28.8 L, RDW 19.9 H, RDW Differential 57.6 H, Plt Count 257, MPV 10.1, Immature Gran % (Auto) 0.100, Neut % (Auto) 88.1 H, Lymph % (Auto) 5.0 L, Green % (Auto) 6.2, Eos % (Auto) 0.5, Baso % (Auto) 0.1, Absolute Neuts (auto) 12.5 H, Absolute Lymphs (auto) 0.70 L, Total Counted Not Reportable 10/26/17 05:50: Sodium 142, Potassium 4.8, Chloride 107, Carbon Dioxide 25.0, Anion Gap 10, BUN 38 H, Creatinine 1.61 H, Estim Creat Clear Calc 22.35, Est GFR (MDRD) Af Amer 40 L, Est GFR (MDRD) Non-Af 33 L, BUN/Creatinine Ratio 23.6 H , Glucose 127 H, Calcium 9.4 10/26/17 08:45: POC Glucose 128 H Current Medications Amiodarone HCl (Cordarone) 200 mg PO DAILY [facility] Last Admin: 10/26/17 09:09 Dose: 200 mg Bisacodyl (Dulcolax) 5 mg PO DAILY PRN PRN PRN Reason: Constipation Dextrose (D50w Syringe) 0 gm IV X1 PRN; Protocol PRN Reason: Hypoglycemia Docusate Sodium (Colace) 100 mg PO DAILY PRN PRN Reason: Constipation Duloxetine HCl (Cymbalta) 60 mg PO DAILY [facility] Last Admin: 10/26/17 09:09 Dose: 60 mg Gabapentin (Neurontin) 800 mg PO DAILY [facility] Last Admin: 10/26/17 09:09 Dose: 800 mg Glucagon () 1 mg IM .X1 PRN PRN Reason: Hypoglycemia Vancomycin HCl 750 mg/ Sodium (Chloride) 265 mls @ 250 mls/hr IV Q24H [facility] Last Admin: 10/25/17 23:51 Dose: 250 mls/hr Insulin Human Lispro (Humalog Kwikpen (Bkc)) 0 unit SQ TIDAC MELISSA PRN Reason: Protocol Last Admin: 10/26/17 09:03 Dose: Not Given Magnesium Hydroxide (Milk Of Magnesia) 30 ml PO DAILY PRN PRN PRN Reason: Constipation Magnesium Oxide (Mag-Ox 400) 400 mg PO BID [facility] Last Admin: 10/26/17 09:09 Dose: 400 mg Metoprolol Tartrate (Lopressor (Beta Tommy)) 50 mg PO BID [facility] Last Admin: 10/26/17 09:09 Dose: 50 mg Morphine Sulfate () 1 - 2 mg IV Q4H PRN PRN PRN Reason: SEVERE PAIN (6-1010) Last Admin: 10/25/17 11:56 Dose: 2 mg Nutritional Formula (Lactose Free) (Glucerna Shake) 120 ml PO 4X/DAY [facility] Last Admin: 10/26/17 09:09 Dose: 120 ml Ondansetron HCl (Zofran) 4 mg IV Q8H PRN PRN PRN Reason: Nausea Pantoprazole Sodium (Protonix) 40 mg PO DAILY [facility] Last Admin: 10/26/17 09:10 Dose: 40 mg Rivaroxaban (Xarelto) 15 mg PO DAILYCM [facility] Last Admin: 10/26/17 09:08 Dose: 15 mg Sodium Chloride () 5 - 30 ml IV UD PRN PRN Reason: SALINE FLUSH Last Admin: 10/25/17 23:51 Dose: 10 ml Tramadol HCl (Ultram) 50 mg PO BID [facility] Last Admin: 10/26/17 09:12 Dose: 50 mg Medical Necessity - Tobacco Use Smoking Status: Former smoker Assessment/Plan All Active Problems (Last Reviewed 10/25/17 @ 01:47 by Oziel Angel MD) Ulcer of right lower extremity with fat layer exposed (Acute) Cellulitis of right leg (Acute) Ulcer of left lower extremity with fat layer exposed (Acute) 1. RLE cellulitis * improved, but pt with exquisite tenderness. * CT leg negative for nec fas, abscess. * continue with Vancomycin, DC clindamycin. * check MRSA * given severe tenderness, will watch and continue with IV abx overnight. 2. pAfib * continue Xarelto * continue Amiodarone 3. DM2 * fair control * add SSI 4. Sepsis * POA * 2/2 RLE cellulitis * resolved 5. DVT proph: already anticoagulated Code Visit Inpatient E&M: 52219 Subs Hosp L2
--- NOTE | 2017-10-26 11:45 | CASEMGMT ---
Social Work Note RN ROSIBEL Hagan udpated this worker that pt is agreeable to [facility]. SW updated quality management Rita Muir to send referral to [facility] and if [facility] can accept to start pre-cert. Plan: [facility] pending acceptance and pre-cert Digna Palumbo ANNOUNCER, DIELECTRIC MACHINE OPERATOR
--- NOTE | 2017-10-26 12:08 | NURSING ---
pt refused afternoon insulin for glucose of 157 due to recently finishing eating breakfast and having a lorraine rod. pt normaly controls blood sugars with diet alone. will continue to monitor.
[2017-10-26 12:10] LABS: Bedside Glucose 157 mg/dL (70-110)
--- NOTE | 2017-10-26 12:12 | CASEMGMT ---
Per JAGDEEP Sawyer, referral to be sent to [facility]. If [facility] is able to accept patient, pre-cert can be started. Voicemail left for Padma, admissions at [facility] of same. Referral faxed, fax confirmation rec'd. Rita Muir LPN Clinical Support
--- NOTE | 2017-10-26 13:36 | CASEMGMT ---
Rec'd phone call mitali Rouse at [facility]. Pre-cert started. WIll fax wound care orders to Padma. Rita Muir LPN Clinical Support
[2017-10-26] MEDS: Morphine 2 MG/ML Syringe IV ×3 (14:31→22:50)
[2017-10-26 16:21] LABS: Bedside Glucose 135 mg/dL (70-110)
--- NOTE | 2017-10-26 17:00 | CASEMGMT ---
Social Work Note JAGDEEP received call from Padma at [facility] stating pre-cert has been obtained. JAGDEEP updated physician who states pt will discharge tomorrow if medically cleared. JAGDEEP updated pt and updated Padma at [facility]. Green sheet on chart. HENS completed. Plan: Discharge to [facility] when medically cleared Digna Palumbo MSW, EPITAXIAL REACTOR TECHNICIAN
[2017-10-26 21:26] LABS: Bedside Glucose 169 mg/dL (70-110)
[2017-10-26] MEDS: 0.9% NaCl Peripheral Flush Adult/Peds IV (22:50)
--- NOTE | 2017-10-27 02:05 | PCM.RX.CS ---
Consult Pharmacy has been consulted to manage selected antiobiotic: Vancomycin Type of Consult: Follow-up Suspected Infection: Skin/Soft tissue Prior Doses of Antibiotics Received/Current Regimen: Medications Vancomycin HCl 750 mg/ Sodium (Chloride) 265 mls @ 250 mls/hr IV Q24H MELISSA Last Admin: 10/27/17 00:02 Dose: 250 mls/hr Labs: Sodium 142 mmol/L (136-145) 10/26/17 05:50 Potassium 4.8 mmol/L (3.5-5.1) 10/26/17 05:50 Chloride 107 mmol/L (98-107) 10/26/17 05:50 Carbon Dioxide 25.0 mmol/L (21.0-32.0) 10/26/17 05:50 Anion Gap 10 (5-15) 10/26/17 05:50 BUN 38 mg/dL (7-18) H 10/26/17 05:50 Creatinine 1.61 mg/dL (0.55-1.02) H 10/26/17 05:50 Est GFR (MDRD) Af Amer 40 mL/min (>60) L 10/26/17 05:50 Est GFR (MDRD) Non-Af 33 mL/min (>60) L 10/26/17 05:50 BUN/Creatinine Ratio 23.6 RATIO (10-20) H 10/26/17 05:50 Glucose 127 mg/dL (74-106) H 10/26/17 05:50 Vancomycin Trough 10.0 ug/mL (5.0-15.0) 10/26/17 23:55 Weight used for dosin.4 kg Estimated Creatinine Clearance: 22.4 Goal Trough: 10-15 mcg/mL Pharmacy Plan for Drug Dosing: Trough level returned at 10.0, within target range. Will continue with 750mg q 24 hours and will redraw trough in 3 doses. Pharmacy Service will continue to monitor and adjust dosing as required. Follow-Up Labs: Trough Vancomycin Labs to be done on [date and time ordered]: 10/28/17 @2814
[2017-10-27 02:33] VITALS: BP 149/66; PULSE 58; RESP 18; TEMP 36.7; O2SAT 92
[2017-10-27] MEDS: 0.9% NaCl Peripheral Flush Adult/Peds IV ×2 (05:34→05:53)
[2017-10-27] MEDS: Morphine 2 MG/ML Syringe IV (05:34)
[2017-10-27 06:46] LABS: Bedside Glucose 116 mg/dL (70-110)
[2017-10-27 07:32] VITALS: O2SAT 96
[2017-10-27] MEDS: Acetaminophen 325 MG Tablet 650 MG PO (07:57)
[2017-10-27] MEDS: Rivaroxaban 15 MG Tablet PO (07:57)
[2017-10-27 08:00] VITALS: BP 148/65; PULSE 63; RESP 18; TEMP 36.8; O2SAT 95
--- NOTE | 2017-10-27 08:01 | NURSING ---
pain 8, morphine not due. pt said she would even take tylenol. dr fontana notified and orders for tylenol received. pt medicated at this time
--- NOTE | 2017-10-27 08:59 | PCM.PN.HOSP ---
Patient Problems: Active and Suspected Problems (Last Reviewed 10/25/17 @ 01:47 by Oziel Angel MD) Cellulitis of right leg (Acute) Subjective: Still with pain in RLE. Vitals/I&O's: Vital Signs Temp Pulse Resp BP Pulse Ox 36.8 C 63 18 148/65 H 95 10/27/17 08:00 10/27/17 08:00 10/27/17 08:00 10/27/17 08:00 10/27/17 08:00 Oxygen Delivery Method Room Air Weight: 98.4 kg Body Mass Index (BMI) 42.3 Intake and Output for Last 24 Hours 10/25/17 10/26/17 10/27/17 23:59 23:59 23:59 Intake Total 1170 / 1170 2290 / 2290 311 / 311 Output Total 775 / 775 250 / 250 Balance 1170 / 1170 1515 / 1515 61 / 61 General: Alert, No apparent distress HEENT: Atraumatic, Normocephalic Oral: Moist Mucosa, No Gingival or Mucosal Lesions/ Ulcerations Extremities: Edema, - - less tenderness, though still with tenderness to palpation. Skin: - - still with erythema of RLE, withdrawn for line of demarcation. Psych/Mental Status: Normal Affect, Appropriate Laboratory Results 10/26/17 08:45: POC Glucose 128 H 10/26/17 12:02: POC Glucose 157 H 10/26/17 16:14: POC Glucose 135 H 10/26/17 21:17: POC Glucose 169 H 10/26/17 23:55: Vancomycin Trough 10.0 10/27/17 06:33: POC Glucose 116 H Current Medications Acetaminophen (Tylenol) 650 mg PO Q4H PRN PRN PRN Reason: PAIN Last Admin: 10/27/17 07:57 Dose: 650 mg Amiodarone HCl (Cordarone) 200 mg PO DAILY MELISSA Last Admin: 10/26/17 09:09 Dose: 200 mg Bisacodyl (Dulcolax) 5 mg PO DAILY PRN PRN PRN Reason: Constipation Dextrose (D50w Syringe) 0 gm IV X1 PRN; Protocol PRN Reason: Hypoglycemia Docusate Sodium (Colace) 100 mg PO DAILY PRN PRN Reason: Constipation Duloxetine HCl (Cymbalta) 60 mg PO DAILY MELISSA Last Admin: 10/26/17 09:09 Dose: 60 mg Gabapentin (Neurontin) 800 mg PO DAILY [facility] Last Admin: 10/26/17 09:09 Dose: 800 mg Glucagon () 1 mg IM .X1 PRN PRN Reason: Hypoglycemia Vancomycin HCl 750 mg/ Sodium (Chloride) 265 mls @ 250 mls/hr IV Q24H [facility] Last Admin: 10/27/17 00:02 Dose: 250 mls/hr Insulin Human Lispro (Humalog Kwikpen (Bkc)) 0 unit SQ TIDAC MELISSA PRN Reason: Protocol Last Admin: 10/27/17 06:44 Dose: Not Given Magnesium Hydroxide (Milk Of Magnesia) 30 ml PO DAILY PRN PRN PRN Reason: Constipation Magnesium Oxide (Mag-Ox 400) 400 mg PO BID [facility] Last Admin: 10/26/17 21:19 Dose: 400 mg Metoprolol Tartrate (Lopressor (Beta Tommy)) 50 mg PO BID [facility] Last Admin: 10/26/17 21:19 Dose: 50 mg Morphine Sulfate () 1 - 2 mg IV Q4H PRN PRN PRN Reason: SEVERE PAIN (6-10/10) Last Admin: 10/27/17 05:34 Dose: 2 mg Nutritional Formula (Lactose Free) (Glucerna Shake) 120 ml PO 4X/DAY [facility] Last Admin: 10/26/17 21:19 Dose: Not Given Ondansetron HCl (Zofran) 4 mg IV Q8H PRN PRN PRN Reason: Nausea Pantoprazole Sodium (Protonix) 40 mg PO DAILY [facility] Last Admin: 10/26/17 09:10 Dose: 40 mg [facility] Last Admin: 10/27/17 07:57 Dose: 15 mg Sodium Chloride () 5 - 30 ml IV UD PRN PRN Reason: SALINE FLUSH Last Admin: 10/27/17 05:53 Dose: 20 ml Tramadol HCl (Ultram) 50 mg PO BID [facility] Last Admin: 10/26/17 21:18 Dose: 50 mg Medical Necessity - Tobacco Use Smoking Status: Former smoker Assessment/Plan All Active Problems (Last Reviewed 10/25/17 @ 01:47 by Oziel Angel MD) Ulcer of right lower extremity with fat layer exposed (Acute) Cellulitis of right leg (Acute) Ulcer of left lower extremity with fat layer exposed (Acute) 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 CT leg negative for nec fas, abscess. change to doxycyline and keflex. check MRSA elevated RLE 2. pAfib continue Xarelto continue Amiodarone 3. DM2 fair control add SSI 4. Sepsis POA 2/2 RLE cellulitis resolved 5. DVT proph: already anticoagulated Code Visit Inpatient E&M: 95259 Subs Hosp L2
--- NOTE | 2017-10-27 09:02 | PN_ITS ---
Patient Problems: Active and Suspected Problems (Last Reviewed 10/25/17 @ 01:47 by Oziel Angel MD) Cellulitis of right leg (Acute) Subjective: Still with pain in RLE. Vitals/I&O's: Vital Signs Temp Pulse Resp BP Pulse Ox 36.8 C 63 18 148/65 H 95 10/27/17 08:00 10/27/17 08:00 10/27/17 08:00 10/27/17 08:00 10/27/17 08:00 Oxygen Delivery Method Room Air Weight: 98.4 kg Body Mass Index (BMI) 42.3 Intake and Output for Last 24 Hours 10/25/17 10/26/17 10/27/17 23:59 23:59 23:59 Intake Total 1170 / 1170 2290 / 2290 311 / 311 Output Total 775 / 775 250 / 250 Balance 1170 / 1170 1515 / 1515 61 / 61 General: Alert, No apparent distress HEENT: Atraumatic, Normocephalic Oral: Moist Mucosa, No Gingival or Mucosal Lesions/ Ulcerations Extremities: Edema, - - less tenderness, though still with tenderness to palpation. Skin: - - still with erythema of RLE, withdrawn for line of demarcation. Psych/Mental Status: Normal Affect, Appropriate Laboratory Results 10/26/17 08:45: POC Glucose 128 H 10/26/17 12:02: POC Glucose 157 H 10/26/17 16:14: POC Glucose 135 H 10/26/17 21:17: POC Glucose 169 H 10/26/17 23:55: Vancomycin Trough 10.0 10/27/17 06:33: POC Glucose 116 H Current Medications Acetaminophen (Tylenol) 650 mg PO Q4H PRN PRN PRN Reason: PAIN Last Admin: 10/27/17 07:57 Dose: 650 mg Amiodarone HCl (Cordarone) 200 mg PO DAILY [facility]ELISSA Last Admin: 10/26/17 09:09 Dose: 200 mg Bisacodyl (Dulcolax) 5 mg PO DAILY PRN PRN PRN Reason: Constipation Dextrose (D50w Syringe) 0 gm IV X1 PRN; Protocol PRN Reason: Hypoglycemia Docusate Sodium (Colace) 100 mg PO DAILY PRN PRN Reason: Constipation Duloxetine HCl (Cymbalta) 60 mg PO DAILY [facility]ELISSA Last Admin: 10/26/17 09:09 Dose: 60 mg Gabapentin (Neurontin) 800 mg PO DAILY [facility] Last Admin: 10/26/17 09:09 Dose: 800 mg Glucagon () 1 mg IM .X1 PRN PRN Reason: Hypoglycemia Vancomycin HCl 750 mg/ Sodium (Chloride) 265 mls @ 250 mls/hr IV Q24H [facility] Last Admin: 10/27/17 00:02 Dose: 250 mls/hr Insulin Human Lispro (Humalog Kwikpen (Bkc)) 0 unit SQ TIDAC MELISSA PRN Reason: Protocol Last Admin: 10/27/17 06:44 Dose: Not Given Magnesium Hydroxide (Milk Of Magnesia) 30 ml PO DAILY PRN PRN PRN Reason: Constipation Magnesium Oxide (Mag-Ox 400) 400 mg PO BID [facility] Last Admin: 10/26/17 21:19 Dose: 400 mg Metoprolol Tartrate (Lopressor (Beta Tommy)) 50 mg PO BID [facility] Last Admin: 10/26/17 21:19 Dose: 50 mg Morphine Sulfate () 1 - 2 mg IV Q4H PRN PRN PRN Reason: SEVERE PAIN (6-10/10) Last Admin: 10/27/17 05:34 Dose: 2 mg Nutritional Formula (Lactose Free) (Glucerna Shake) 120 ml PO 4X/DAY [facility] Last Admin: 10/26/17 21:19 Dose: Not Given Ondansetron HCl (Zofran) 4 mg IV Q8H PRN PRN PRN Reason: Nausea Pantoprazole Sodium (Protonix) 40 mg PO DAILY [facility] Last Admin: 10/26/17 09:10 Dose: 40 mg [facility] Admin: 10/27/17 07:57 Dose: 15 mg Sodium Chloride () 5 - 30 ml IV UD PRN PRN Reason: SALINE FLUSH Last Admin: 10/27/17 05:53 Dose: 20 ml Tramadol HCl (Ultram) 50 mg PO BID [facility] Last Admin: 10/26/17 21:18 Dose: 50 mg Medical Necessity - Tobacco Use Smoking Status: Former smoker Assessment/Plan All Active Problems (Last Reviewed 10/25/17 @ 01:47 by Oziel Angel MD) Ulcer of right lower extremity with fat layer exposed (Acute) Cellulitis of right leg (Acute) Ulcer of left lower extremity with fat layer exposed (Acute) 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 * CT leg negative for nec fas, abscess. * change to doxycyline and keflex. * check MRSA * elevated RLE 2. pAfib * continue Xarelto * continue Amiodarone 3. DM2 * fair control * add SSI 4. Sepsis * POA * 2/2 RLE cellulitis * resolved 5. DVT proph: already anticoagulated Code Visit Inpatient E&M: 64169 Subs Hosp L2
--- NOTE | 2017-10-27 09:16 | TREXTCAR_ITS ---
- Diet 10/24/17 22:41 Diet: Regular Diet Food consistency:: Regular Liquid Consistency:: Regular/Thin Type of Dietary Supplement:: Glucerna 1.5 emilio - Routine Orders/Code Status Routine Lab Work: CBC - Qm, BMP - Q sunday Code Status: Full Code - Wound(s) RIGHT LEG Wound Type: Stasis Ulcer top right foot Wound Type: keep right leg elevated right dorsal foot Wound Type: non healing wound Dressing Change: AntiMicrobial (Aquacel AG, etc) right medial lower leg Wound Type: Puncture Dressing Change: AntiMicrobial (Aquacel AG, etc) left lateral lower leg Wound Type: Abrasion Dressing Change: Dry Sterile Dressing left anterior lower leg Wound Type: Abrasion Dressing Change: AntiMicrobial (Aquacel AG, etc) back left thigh Wound Type: Skin Tear - Therapies Physical Therapy: Eval and Treat Occupational Therapy: Eval and Treat - Allergies/Procedures Done in Hospital Allergies/Adverse Reactions: Allergies ciprofloxacin [From Cipro] Allergy (Verified 10/24/17 18:39) Hives ciprofloxacin HCl [From Cipro] Allergy (Verified 10/24/17 18:39) Hives Latex, Natural Rubber Allergy (Verified 10/24/17 18:39) Rash Penicillins [PCN] Allergy (Verified 10/24/17 18:39) Hives codeine Adverse Reaction (Unknown, Verified 10/24/17 18:39) Unknown adhesive tape Adverse Reaction (Verified 10/24/17 18:39) Rash - Type of Care/Length of Stay Estimated LOS: Convalescent Care Less Than 30 days Type of Care Needed: Skilled Rehab Potential: Fair Prognosis: Good - Additional Orders/Day of Discharge Day of Discharge: 10/27/17 - Dietary and Speech Recommendations Dietitian Recommendations/Changes: Recommend cardiac, 1800 calorie carb- controlled diet. Suggest Ej 1 packet BID for improved wound-healing. Continue Glucerna shake, 120 ml 4x/day w/ medpass (chocolate preferred). - Follow Up Care Primary Care Physician: Octaviano Franco Chi, MD [Primary Care Provider] - Within 2 Weeks
--- NOTE | 2017-10-27 09:19 | DS.PCM_ITS ---
Discharge Date and Diagnosis - Problem List Patient Problems: Active and Suspected Problems (Last Reviewed 10/25/17 @ 01:47 by Oziel Angel MD) Cellulitis of right leg (Acute) Date of Admission: 10/25/17 Date of Discharge: 10/27/17 - Primary Discharge Diagnosis Active and Suspected Problems (Last Reviewed 10/25/17 @ 01:47 by Oziel Angel MD) Cellulitis of right leg (Acute) - Secondary Discharge Diagnosis Chronic Problems (Last Reviewed 10/25/17 @ 01:47 by Oziel Angel MD) PVD (peripheral vascular disease) (Chronic) Controlled diabetes mellitus (Chronic) Edema, lower extremity (Chronic) Presence of stent in coronary artery (Chronic) PTCA/stent to CX; PTCA/Stent PTCA/stent to prox RCA 05/06; PTCA/LILY in mid to distal RCA 08/29/12 Atherosclerotic heart disease of [place] coronary artery without angina pectoris (Chronic) PTCA/stent to CX; PTCA/Stent PTCA/stent to prox RCA 05/06; PTCA/LILY in mid to distal RCA 08/29/12; CABG x2 ARREGUIN tp LAD and SVG to OM2 01/02/11 S/P CABG (coronary artery bypass graft) (Chronic ~01/02/11) CABG x2 ARREGUIN tp LAD and SVG to OM2 01/02/11 Paroxysmal atrial fibrillation (Chronic) Hyperlipidemia (Chronic) Hypertension (Chronic) Hospital Course and Treatment Imaging Results: Clinical Impression(s) from Imaging Studies Tibia/Fibula X-Ray 10/24/17 19:48 IMPRESSION: There is soft tissue edema. Skin irregularity laterally. Electronically Signed: Eric Pollard DO at 21:23 EDT Tel [phone], Service support , Chest X-Ray 10/24/17 20:05 IMPRESSION: Prominent cardiac shadow. Minimal basilar atelectasis. Electronically Signed: Eric Pollard DO at 21:26 EDT Tel [phone], Service support , Venous Duplex 10/24/17 21:56 IMPRESSION: No sonographic evidence for deep venous thrombosis of the right common femoral or superficial femoral vein. Electronically Signed: Lexi Chand MD at 2:18 EDT , Service support , Lower Extremity CT 10/25/17 10:47 IMPRESSION: Findings in keeping with diffuse subcutaneous edema and skin thickening with no focal fluid collection or abscess collection. Soft tissue defect along the anterior aspect of the mid leg. 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 1. 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 * CT leg negative for nec fas, abscess. * change to doxycyline and keflex. * check MRSA * elevated RLE * pt with chronic pain, so will change Tramadol to oxycodone--short term. 2. pAfib * continue Xarelto * continue Amiodarone 3. DM2 * fair control * add SSI 4. Sepsis * POA * 2/2 RLE cellulitis * resolved [] Discharge Diet: 1800 Calorie Control Diet Discharge Activity: Return to Normal Activity Home Medications: Medications to take at Discharge Docusate Sodium [Colace] 100 mg PO DAILY PRN 05/10/17 Magnesium Oxide 400 mg PO BID 05/10/17 Pantoprazole Sodium [Protonix] 40 mg PO DAILY 05/10/17 Rivaroxaban [Xarelto] 15 mg PO DAILY 05/10/17 metoprolol tartrate 50 mg tablet 50 mg PO BID #180 tab 09/18/17 amiodarone 200 mg tablet 200 mg PO DAILY #90 tab 10/10/17 Duloxetine HCl 60 mg PO DAILY 10/24/17 furosemide 40 mg tablet 40 mg PO .QOD PRN tab 10/25/17 Acetaminophen [Tylenol Tablet] 1,000 mg PO Q8 tablet 10/27/17 Cephalexin [Keflex] 500 mg PO Q8 #21 capsule 10/27/17 Doxycycline 100 mg PO BID #14 capsule 10/27/17 Gabapentin [Neurontin] 800 mg PO BID 3 Days #6 tab 10/27/17 Glucerna Shake 120 ml PO 4X/DAY liquid 10/27/17 Oxycodone [Oxyir] 5 mg PO Q6H PRN PRN 3 Days #12 tab 10/27/17 Following Prescrptions Were Given to Patient: Oxycodone [Oxyir] 5 mg PO Q6H PRN PRN 3 Days #12 tab PRN Reason: Pain Cephalexin [Keflex] 500 mg PO Q8 #21 capsule Doxycycline 100 mg PO BID #14 capsule Gabapentin [Neurontin] 800 mg PO BID 3 Days #6 tab Primary Care Physician: Octaviano Franco Chi, MD [Primary Care Provider] - Within 2 Weeks Disposition: [facility] facility Minutes spent on discharge:: 35 Patient Condition:: Good Medical Necessity - Tobacco Use Smoking Status: Former smoker Meaningful Use Info Meaningful Use Diagnoses (Choose all that apply): None applicable Code Visit Inpatient E&M: 29235 Disch Hosp
[2017-10-27 09:40] LABS: Absolute Lymphocyte Count 0.74 X10^3/ul (0.83-4.51); Basophil# 0.01 X10^3/uL; Basophil% 0.1 % (0-1); Eosinophil# 0.12 X10^3/uL; Hematocrit 31.4 % (37-47); Hemoglobin 8.9 g/dl (12.0-15.0); Lymphocyte # 0.74 X10^3/ul (4.0); Lymphocyte % 6.3 % (19-41); Mean Corp Hgb Conc 28.3 g/gl (32-36); Mean Corpuscular Hgb 22.4 pg (27.0-32.0); Mean Corpuscular Volume 79.1 fL (81-99); Monocyte# 0.76 X10^3/uL; Monocyte% 6.5 % (0-10); Neutrophil % 85.8 % (47-70); Platelet Count 282 K/mm3 (150-450); RBC Distribution Width CV 20.1 % (11.6-14.6); RBC Distribution Width SD 58.5 fl (35.1-43.9); Red Blood Count 3.97 M/mm3 (4.2-5.4); White Blood Count 11.7 K/mm3 (4.4-11.0)
[2017-10-27 09:43] LABS: Differential Indicated SCAN CRITERIA MET; POSITIVE COUNT NO; POSITIVE DIFFERENTIAL NO; POSITIVE MORPHOLOGY YES
[2017-10-27 09:49] LABS: Anion Gap 7 (5-15); BUN 37 mg/dL (7-18); BUN/Creat Ratio 24.7 RATIO (10-20); Calcium,Total 9.3 mg/dL (8.5-10.1); Chloride 107 mmol/L (98-107); EST Glomerular Filtration Rate 36 mL/min (>60); Est Glom Filt Rate - Afr Amer 44 mL/min (>60); Estimated Creatinine Clearance 23.99 ml/min; Glucose 139 mg/dL (74-106); Potassium 4.9 mmol/L (3.5-5.1); Sodium Level 143 mmol/L (136-145)
[2017-10-27 10:09] LABS: Anisocytosis 1+; Hypochromasia 1+; Microcytosis 1+; Platelet Estimate ADEQUATE (ADEQ); Polychromasia RARE
[2017-10-27] MEDS: Pantoprazole Sodium 40 MG Tablet PO (11:24)
[2017-10-27] MEDS: Gabapentin 800 MG Tablet PO (11:24)
[2017-10-27 11:25] VITALS: PULSE 63
[2017-10-27] MEDS: Metoprolol Tartrate 50 MG Tablet PO (11:25)
[2017-10-27] MEDS: oxyCODONE 5 MG Tablet PO (11:25)
[2017-10-27] MEDS: Amiodarone 200 MG Tablet PO (11:25)
[2017-10-27] MEDS: DULoxetine Hcl 60 MG Capsule PO (11:25)
[2017-10-27] MEDS: Magnesium Oxide 400 MG Tablet PO (11:25)
[2017-10-27 11:36] LABS: Bedside Glucose 178 mg/dL (70-110)
--- NOTE | 2017-10-27 12:09 | NURSING ---
report called to Pilar at [facility].
== END 2017-10-27 13:00 | disposition skilled nursing facility (03) | DRG 872 ==
LOC: ED 19:22 → MS3 22:06
PROVIDERS: Admitting Provider Hospitalist; Emergency Provider Emergency Medicine; Family Provider Family Medicine Geriatric Medicine; PCP Family Medicine Geriatric Medicine
DX: A41.9 Sepsis, unspecified organism (principal); L03.115 Cellulitis of right lower limb; I12.9 Hypertensive chronic kidney disease with stage 1 through stage 4 chronic kidney disease, or unspecified chronic kidney disease; E11.22 Type 2 diabetes mellitus with diabetic chronic kidney disease; N18.3 Chronic kidney disease, stage 3 (moderate); Z88.0 Allergy status to penicillin; I48.0 Paroxysmal atrial fibrillation; Z79.01 Long term (current) use of anticoagulants; Z95.5 Presence of coronary angioplasty implant and graft; I25.10 Atherosclerotic heart disease of native coronary artery without angina pectoris; I73.9 Peripheral vascular disease, unspecified; Z95.1 Presence of aortocoronary bypass graft
CPT/HCPCS: 36415; 71045; 73590; 73700; 80048; 80053; 80202; 81001; 82962; 83605; 84484; 85025; 85610; 85730; 87040; 87081; 87086; 87088; 87186; 87640; 93005; 93971; 97110; 97162; 97166; 97530; 97535; 97802; 99285; J7040; J7050; A4216; J2405

== ENCOUNTER → 2017-11-20 15:22 | Outpatient (CLI) | payer MEDICARE, SELFPAY ==
[2017-11-20 16:59] LABS: Absolute Lymphocyte Count 1.69 X10^3/ul (0.83-4.51); Absolute Neutrophil Count 6.5 X10^3/uL (2.0-7.7); Basophil# 0.02 X10^3/uL; Basophil% 0.2 % (0-1); Differential Indicated SCAN CRITERIA MET; Eosinophil# 0.07 X10^3/uL; Eosinophils% 0.8 % (0-5); Hematocrit 34.1 % (37-47); Hemoglobin 9.7 g/dl (12.0-15.0); Lymphocyte # 1.69 X10^3/ul (4.0); Lymphocyte % 18.9 % (19-41); Mean Corp Hgb Conc 28.4 g/gl (32-36); Mean Platelet Vol. 10.2 fl (6.2-12.0); Monocyte# 0.65 X10^3/uL; Monocyte% 7.3 % (0-10); Neutrophil # 6.48 X10^3/uL (2.7-7.7); Neutrophil % 72.2 % (47-70); POSITIVE COUNT NO; POSITIVE DIFFERENTIAL NO; POSITIVE MORPHOLOGY YES; Platelet Count 331 K/mm3 (150-450); RBC Distribution Width CV 23.2 % (11.6-14.6); RBC Distribution Width SD 66.4 fl (35.1-43.9); Red Blood Count 4.21 M/mm3 (4.2-5.4)
[2017-11-20 17:01] LABS: BUN 24 mg/dL (7-18); Creatinine, Serum 1.47 mg/dL (0.55-1.02); Glucose 139 mg/dL (74-106)
[2017-11-20 17:02] LABS: Anion Gap 9 (5-15); BUN/Creat Ratio 16.3 RATIO (10-20); Chloride 108 mmol/L (98-107); EST Glomerular Filtration Rate 37 mL/min (>60); Est Glom Filt Rate - Afr Amer 45 mL/min (>60); Magnesium 1.8 mg/dL (1.6-2.6); Potassium 3.2 mmol/L (3.5-5.1); Sodium Level 146 mmol/L (136-145)
[2017-11-20 17:15] LABS: Differential Comment SCANNED
[2017-11-20 18:41] LABS: M R Staph aureus DNA By PCR Negative (Negative); Probe Check PASS; Specimen Processing Control PASS; Staph aureus DNA By PCR NEGATIVE (Negative)
== END ==
PROVIDERS: Family Provider Family Medicine Geriatric Medicine; PCP Family Medicine Geriatric Medicine; Visit Provider Family Medicine Geriatric Medicine
DX: I48.91 Unspecified atrial fibrillation (principal); I87.339 Chronic venous hypertension (idiopathic) with ulcer and inflammation of unspecified lower extremity; E83.49 Other disorders of magnesium metabolism; L03.119 Cellulitis of unspecified part of limb
CPT/HCPCS: 36415; 80048; 83735; 85025; 87070; 87077; 87186; 87205; 87640

== ENCOUNTER 2017-11-29 10:30 | Outpatient (RCR) | payer MEDICARE, SELFPAY ==
[2017-11-05 00:44] VITALS: BP 150/72; PULSE 55; RESP 20; TEMP 36.5
[2017-11-22 10:23] VITALS: BP 165/72; PULSE 70; RESP 18; TEMP 37.2
--- NOTE | 2017-11-22 12:49 | PCM.WC.PN ---
(1) Ulcer of right foot with fat layer exposed Status: Acute Current Visit: Yes Code(s): L97.512 - Non-pressure chronic ulcer of other part of right foot with fat layer exposed (2) Ulcer of right lower extremity with fat layer exposed Status: Acute Current Visit: Yes Code(s): L97.912 - Non-pressure chronic ulcer of unspecified part of right lower leg with fat layer exposed (3) PVD (peripheral vascular disease) Status: Chronic Current Visit: Yes Code(s): I73.9 - Peripheral vascular disease, unspecified (4) Controlled diabetes mellitus Status: Chronic Current Visit: Yes Code(s): E11.9 - Type 2 diabetes mellitus without complications (5) Edema, lower extremity Status: Chronic Current Visit: Yes Code(s): R60.0 - Localized edema Type of Wound Date of Service: 11/22/17 Chief Complaint: Left anterior lower leg ulceration that will not heal. History of Wound: This 72 year old female has significant history of diabetes and multiple sclerosis, bilateral traumatic leg wounds, and other comorbidities. She presents to office today after being referred by Dr. Franco. Per his note, the patient had finished up a prescription for keflex and is on rocephin. Patient states that she recently got a new bed. She says since she is short she had to get a stool in order to get onto her bed. She fell on the stool and got an ulcer on the left anterior leg. She says this happed close to two weeks ago and has not seen much of an improvment since. She has been dressing the ulcer site with bacitracin. She denies any purulence, malodor, redness around the ulcer. She also denies any feelings of nausea, vomiting, fever, or chills currently. Progress of Wound: Patient presents for follow up today after missing a month in the wound healing center. She was admitted to the hospital in October and then went to an extended nursing care facility following. While there, the patient states she had a new ulcer open on the posterior right calf. She says she still has the ulcer to the dorsal right foot as well, but that this has continued to heal. Ulcer to left lower leg is completely healed today. She continues to try to keep compression to her lower extremity as instructed. She says she saw Dr. Franco earlier this week and that he ordered wound cultures and is awaiting the results and he will prescribe an antibiotic as necessary. She is currently finishing a prescription for Doxycycline. She currently denies any feelings of nausea, vomiting, fever, or chills. - Physical Exam Vital Signs Temp Pulse Resp BP 98.9 F 70 18 165/72 H 11/22/17 10:23 11/22/17 10:23 11/22/17 10:23 11/22/17 10:23 General: Alert, Oriented x3, Cooperative, No apparent distress Extremities: Capillary Refill Less than 3 Seconds, No Calf Tenderness - Negative Sunita and Abraham sign, Diminished Peripheral Pulses - DP and PT pulses nonpalpable due to pitting lower extremity edema, Edema - Bilateral pitting lower extremity edema Skin: Ulcer/ Wound - Ulcer to the right posterior calf as well as the right dorsal foot with fat layer exposed. Measurements are noted below. The bases of each ulcer site are noted to be a mixture of adherent slough, fibrin, granular tissue as well as some slight hyperkeratotic tissue. There is no probing to bone, no tracking, no undermining, no purulence, no malodor, no extending cellulitis, and no significant increase in warmth appreciated to either ulcer site today. Wound Measurements and Assessment WC - Nurse 1 - General Ulcer Measurement Start: 11/22/17 10:23 Freq: Status: Active Protocol: Activity Type Activity Date Activity User E-Sign Co-Sign Detail Recorded Client Recorded Date Recorded By Document 11/22/17 10:23 [facility] [id number] 11/22/17 10:44 [facility] 11/22/17 10:23 Wound Center Nurse 1 [Ulcer Assessment] #8- RT MED LE CLUSTER -Combined with other wound No -Current Size (cm) - Length 10.2 -Current Size (cm) - Width 10.4 -Current Size (cm) - Depth 0.1 -Total Square Cm 106.08 -Date of Last Picture (Recall this 11/22/17 field) -Photo Taken Yes -Epithelialization None Present -Tunneling No -Undermining/Tunneling No -Circular Undermining No -Exudate Amt Large (67-100%) -Exudate Type Serous -Wound Margin Distinct, Outline Attached -Granulation Amt Large (67-100%) -Granulation Quality Red -Slough/Fibrin No -Necrosis Amt None Present (0 %) -Texture (Char-wound Skin Appearance) Scarring -Moisture (Char-wound Skin Appearance Weeping ) -Color (Char-wound Skin Appearance) Erythema -Temperature (Char-wound Skin No Abnormality Appearance) (Pt Warm) -Tenderness on Palpation (Char-wound Yes Skin Appearance) -Ulcer Cleansing Wound Cleanser -Foul Odor after Cleansing No -Anesthetic Used 4% Lidocaine Solution #7 RIGHT DORSAL FOOT -Combined with other wound No -Current Size (cm) - Length 0.7 -Current Size (cm) - Width 1.5 -Current Size (cm) - Depth 0.1 -Total Square Cm 1.05 -Date of Last Picture (Recall this 11/22/17 field) -Photo Taken Yes -Epithelialization None Present -Tunneling No -Undermining/Tunneling No -Circular Undermining No -Exudate Amt None Present (0 %) -Wound Margin Distinct, Outline Attached -Granulation Amt Small (1-33%) -Granulation Quality Red -Slough/Fibrin Yes -Necrosis Amt Large (67-100%) -Necrotic Tissue Type Adherent Slough -Texture (Char-wound Skin Appearance) Scarring -Moisture (Char-wound Skin Appearance Dry/Scaly ) -Color (Char-wound Skin Appearance) Assessed -Temperature (Char-wound Skin No Abnormality Appearance) (Pt Warm) -Tenderness on Palpation (Char-wound No Skin Appearance) -Ulcer Cleansing Wound Cleanser -Foul Odor after Cleansing No -Anesthetic Used 4% Lidocaine Solution #6 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 INFERIOR -Combined with other wound No -Current Size (cm) - Length 0 -Current Size (cm) - Width 0 -Current Size (cm) - Depth 0 -Total Square Cm 0 -Date of Last Picture (Recall this 11/22/17 field) -Photo Taken Yes -Epithelialization Large 67-100% -Temperature (Char-wound Skin No Abnormality Appearance) (Pt Warm) -Tenderness on Palpation (Char-wound No Skin Appearance) -Ulcer Cleansing Wound Cleanser -Foul Odor after Cleansing No -Anesthetic Used 4% Lidocaine Solution [Edema Assessment] -Lower Limb Edema Present Yes -Right Calf (cm) 43 -Right Ankle (cm) 26.5 -Left Calf (cm) 45.5 -Left Ankle (cm) 25.8 WC - Nurse 2 - General Ulcer CM Notes Start: 11/22/17 10:23 Freq: Status: Active Protocol: Activity Type Activity Date Activity User E-Sign Co-Sign Detail Recorded Client Recorded Date Recorded By Document 11/22/17 11:41 DV [id number] 11/22/17 11:54 DV 11/22/17 11:41 Wound Center Nurse 2 [Procedure/Treatment] #8- RT MED LE CLUSTER -Time 11:48 -Correct Patient Yes -Correct Side, Site, Position Yes -Correct Procedure Yes -Procedure Performed Yes -Type of Procedure Debridement -Clinical Debridement Selective -Post Debridement Size (cm) - Length 11.0 -Post Debridement Size (cm) - Width 11.0 -Post Debridement Size (cm) - Depth 0.1 -Total Square Cm 121.00 -Wound/Ulcer Outcome Not Healed -Ulcer Cleansing Rinsed/ Irrigated with Saline -Foul Odor after Cleansing No -Bioengineered Tissue No -Bleeding Controlled with Pressure -Treatment Response Procedure Tolerated Well #7 RIGHT DORSAL FOOT -Time 11:47 -Correct Patient Yes -Correct Side, Site, Position Yes -Correct Procedure Yes -Procedure Performed Yes -Type of Procedure Debridement -Clinical Debridement Subcutaneous -Post Debridement Size (cm) - Length 0.6 -Post Debridement Size (cm) - Width 1.1 -Post Debridement Size (cm) - Depth 0.1 -Total Square Cm 0.66 -Wound/Ulcer Outcome Not Healed -Ulcer Cleansing Rinsed/ Irrigated with Saline -Foul Odor after Cleansing No -Bioengineered Tissue No -Bleeding Controlled with Pressure -Treatment Response Procedure Tolerated Well #6 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 INFERIOR -Time 11:42 -Correct Patient Yes -Correct Side, Site, Position Yes -Procedure Performed No -Post Debridement Size (cm) - Length 0.1 -Post Debridement Size (cm) - Width 0.1 -Post Debridement Size (cm) - Depth 0.1 -Total Square Cm 0.01 -Wound/Ulcer Outcome Healed- Epithelialized [See Physician Procedure note for Specifics] Pain Scale: 0-10 Numeric [Pain] -Is Patient Pain Free? No Musculoskeletal: Tenderness - With manipulation of ulcer sites Neurological: Sensory exam intact to light touch and pain Psych/Mental Status: Normal Affect, Appropriate Debridement Note Post-Debridement Measurements/Treatment WC - Nurse 2 - General Ulcer CM Notes Start: 11/22/17 10:23 Freq: Status: Active Protocol: Activity Type Activity Date Activity User E-Sign Co-Sign Detail Recorded Client Recorded Date Recorded By Document 11/22/17 11:41 DV [id number] 11/22/17 11:54 DV 11/22/17 11:41 Wound Center Nurse 2 #8- RT MED LE CLUSTER -Time 11:48 -Correct Patient Yes -Correct Side, Site, Position Yes -Correct Procedure Yes -Procedure Performed Yes -Type of Procedure Debridement -Clinical Debridement Selective -Post Debridement Size (cm) - Length 11.0 -Post Debridement Size (cm) - Width 11.0 -Post Debridement Size (cm) - Depth 0.1 -Total Square Cm 121.00 -Wound/Ulcer Outcome Not Healed -Ulcer Cleansing Rinsed/ Irrigated with Saline -Foul Odor after Cleansing No -Bioengineered Tissue No -Bleeding Controlled with Pressure -Treatment Response Procedure Tolerated Well #7 RIGHT DORSAL FOOT -Time 11:47 -Correct Patient Yes -Correct Side, Site, Position Yes -Correct Procedure Yes -Procedure Performed Yes -Type of Procedure Debridement -Clinical Debridement Subcutaneous -Post Debridement Size (cm) - Length 0.6 -Post Debridement Size (cm) - Width 1.1 -Post Debridement Size (cm) - Depth 0.1 -Total Square Cm 0.66 -Wound/Ulcer Outcome Not Healed -Ulcer Cleansing Rinsed/ Irrigated with Saline -Foul Odor after Cleansing No -Bioengineered Tissue No -Bleeding Controlled with Pressure -Treatment Response Procedure Tolerated Well #6 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 INFERIOR -Time 11:42 -Correct Patient Yes -Correct Side, Site, Position Yes -Procedure Performed No -Post Debridement Size (cm) - Length 0.1 -Post Debridement Size (cm) - Width 0.1 -Post Debridement Size (cm) - Depth 0.1 -Total Square Cm 0.01 -Wound/Ulcer Outcome Healed- Epithelialized Pain Scale: 0-10 Numeric Is Patient Pain Free? No Wound debrided: Right posterior calf Laterality: Right Type of Debridement: Excisional debridement Anesthesia Used: 4% Lidocaine Solution Depth: in the subcutaneous layer Percentage of wound debrided: 100 Instrument Used: 7mm curette Tissue Removed: Adherent slough, fibrin, hyperkeratotic tissue Severity: Fat Layer Exposed Amount of bleeding with debridement: Mild Bleeding Controlled with: Pressure Patient tolerated procedure well - Additional Wound Wound debrided: Right dorsal foot Laterality: Right Type of Debridement: Excisional debridement Anesthesia Used: 4% Lidocaine Solution Depth: in the subcutaneous layer Percentage of wound debrided: 100 Instrument Used: 7mm curette Tissue Removed: Adherent slough, fibrin, hyperkeratotic tissue Severity: Fat Layer Exposed Amount of bleeding with debridement: Mild Bleeding Controlled with: Pressure Patient tolerated procedure: Patient tolerated procedure well Assessment/Plan Active Problems (Last Reviewed 10/25/17 @ 01:47 by Oziel Angel MD) Ulcer of right lower extremity with fat layer exposed (Acute) Ulcer of right foot with fat layer exposed (Acute) PVD (peripheral vascular disease) (Chronic) Controlled diabetes mellitus (Chronic) Edema, lower extremity (Chronic) Assessment: Ulcer to left lower leg with fat layer exposed. DM II. Lower extremity edema Plan: Patient was again examined and evaluated today after missing a month of appointments at the wound center. The two aforementioned ulcers were debrided subcutaneously as noted in the clinical panel. The previous ulcer to left lower leg is healed today. Once all of the ulcers were debrided and carefully cleansed, the ulcer sites were then dressed with silvercel, followed by a dry sterile dressing along with tubigrips followed by JASMINE wraps. The dressing is to be changed in this manner daily. She will do this with the help of family friend, her son, and home health. It was again discussed the importance of keeping the compression from the toes all the way up to the knee. She has not been fully compliant with this in the past. She was instrcuted on the importance of keeping pressure off of all of the ulcer sites at all times while seated. I again stressed the importance of compression with the patient's healing. She was instructed to wear the tubigrip and to keep her lower extremities elevated while seated. She is to continue with lasix as prescribed by Dr. Franco. I recommended a high-protein diet for this patient to supplement wound healing. Patient was educated on all signs and symptoms of local and systemic infection, and was instructed to go to the ER immediately should she notice any. All other questions were answered to the patient's satisfaction. The patient will follow-up in clinic in 1 week to check on progress, or sooner if needed.
[2017-11-29 10:50] VITALS: BP 175/69; PULSE 75; RESP 18; TEMP 37
--- NOTE | 2017-11-29 12:46 | PN.PCM_ITS ---
(1) Ulcer of right foot with fat layer exposed Status: Acute Current Visit: Yes Code(s): L97.512 - Non-pressure chronic ulcer of other part of right foot with fat layer exposed (2) Ulcer of right lower extremity with fat layer exposed Status: Acute Current Visit: Yes Code(s): L97.912 - Non-pressure chronic ulcer of unspecified part of right lower leg with fat layer exposed (3) PVD (peripheral vascular disease) Status: Chronic Current Visit: Yes Code(s): I73.9 - Peripheral vascular disease, unspecified (4) Controlled diabetes mellitus Status: Chronic Current Visit: Yes Code(s): E11.9 - Type 2 diabetes mellitus without complications (5) Edema, lower extremity Status: Chronic Current Visit: Yes Code(s): R60.0 - Localized edema Type of Wound Chief Complaint: Left anterior lower leg ulceration that will not heal. History of Wound: This 72 year old female has significant history of diabetes and multiple sclerosis, bilateral traumatic leg wounds, and other comorbidities. She presents to office today after being referred by Dr. Franco. Per his note, the patient had finished up a prescription for keflex and is on rocephin. Patient states that she recently got a new bed. She says since she is short she had to get a stool in order to get onto her bed. She fell on the stool and got an ulcer on the left anterior leg. She says this happed close to two weeks ago and has not seen much of an improvment since. She has been dressing the ulcer site with bacitracin. She denies any purulence, malodor, redness around the ulcer. She also denies any feelings of nausea, vomiting, fever, or chills currently. Progress of Wound: Patient presents for follow up today for dorsal right foot and right lower leg ulcers. Both ulcer sites improved over the last week. She continues to try to keep compression to her lower extremity as instructed. She says Dr. Franco started her on antibiotics since her last visit here. She currently denies any feelings of nausea, vomiting, fever, or chills. - Physical Exam Vital Signs Temp Pulse Resp BP 98.6 F 75 18 175/69 H 11/29/17 10:50 11/29/17 10:50 11/29/17 10:50 11/29/17 10:50 General: Alert, Oriented x3, Cooperative, No apparent distress Extremities: Capillary Refill Less than 3 Seconds, No Calf Tenderness - Negative Sunita and Abraham sign, Diminished Peripheral Pulses - DP and PT pulses nonpalpable due to pitting lower extremity edema, Edema - Bilateral pitting lower extremity edema Skin: Ulcer/ Wound - Ulcer to the right posterior calf is healed with no signs of infection appreciated at this time. Ulcer to right dorsal foot noted with measurements noted below. The base of the ulcer site is noted to have a mixture of adherent slough, fibrin, granular tissue as well as some slight surrounding hyperkeratotic tissue. There is no probing to bone, no tracking, no undermining, no purulence, no malodor, no extending cellulitis, and no s ignificant increase in warmth appreciated at this time. Wound Measurements and Assessment WC - Nurse 1 - General Ulcer Measurement Start: 11/22/17 10:23 Freq: Status: Active Protocol: Activity Type Activity Date Activity User E-Sign Co-Sign Detail Recorded Client Recorded Date Recorded By Document 11/29/17 10:50 [id number] 11/29/17 10:53 11/29/17 10:50 Wound Center Nurse 1 [Ulcer Assessment] #8- RT MED LE CLUSTER -Combined with other wound No -Current Size (cm) - Length 0.1 -Current Size (cm) - Width 0.1 -Current Size (cm) - Depth 0.1 -Total Square Cm 0.01 -Photo Taken No -Epithelialization Large 67-100% -Tunneling No -Undermining/Tunneling No -Circular Undermining No #7 RIGHT DORSAL FOOT -Combined with other wound No -Current Size (cm) - Length 0.3 -Current Size (cm) - Width 0.7 -Current Size (cm) - Depth 0.1 -Total Square Cm 0.21 -Photo Taken No -Epithelialization Medium 34-66% -Tunneling No -Undermining/Tunneling No -Circular Undermining No -Granulation Amt Medium (34-66%) -Granulation Quality Pale -Slough/Fibrin Yes -Necrosis Amt Small (1-33%) -Necrotic Tissue Type Adherent Slough -Structure Exposed None/Limited to Skin Breakdown -Texture (Char-wound Skin Appearance) No Abnormality Assessed -Moisture (Char-wound Skin Appearance Dry/Scaly ) -Color (Char-wound Skin Appearance) No Abnormality Not Assessed -Temperature (Char-wound Skin No Abnormality Appearance) (Pt Warm) -Tenderness on Palpation (Char-wound Yes Skin Appearance) -Ulcer Cleansing Rinsed/ Irrigated with Saline -Foul Odor after Cleansing No -Anesthetic Used 4% Lidocaine Solution [Edema Assessment] -Lower Limb Edema Present Yes -Right Calf (cm) 44 -Right Ankle (cm) 24.5 -Left Calf (cm) 42 -Left Ankle (cm) 26.5 WC - Nurse 2 - General Ulcer CM Notes Start: 11/22/17 10:23 Freq: Status: Active Protocol: Activity Type Activity Date Activity User E-Sign Co-Sign Detail Recorded Client Recorded Date Recorded By Document 11/29/17 11:03 DV [id number] 11/29/17 11:17 DV 11/29/17 11:03 Wound Center Nurse 2 [Procedure/Treatment] #8- RT MED LE CLUSTER -Time 11:04 -Correct Patient Yes -Correct Side, Site, Position Yes -Procedure Performed No -Wound/Ulcer Outcome Healed- Epithelialized #7 RIGHT DORSAL FOOT -Time 11:04 -Correct Patient Yes -Correct Side, Site, Position Yes -Correct Procedure Yes -Procedure Performed Yes -Type of Procedure Debridement -Clinical Debridement Subcutaneous -Post Debridement Size (cm) - Length 0.3 -Post Debridement Size (cm) - Width 0.5 -Post Debridement Size (cm) - Depth 0.1 -Total Square Cm 0.15 -Wound/Ulcer Outcome Not Healed -Ulcer Cleansing Rinsed/ Irrigated with Saline -Foul Odor after Cleansing No -Bioengineered Tissue No -Bleeding Controlled with Pressure -Treatment Response Procedure Tolerated Well [See Physician Procedure note for Specifics] Musculoskeletal: Tenderness - With manipulation of ulcer sites Neurological: Sensory exam intact to light touch and pain Psych/Mental Status: Normal Affect, Appropriate Debridement Note Post-Debridement Measurements/Treatment WC - Nurse 2 - General Ulcer CM Notes Start: 11/22/17 10:23 Freq: Status: Active Protocol: Activity Type Activity Date Activity User E-Sign Co-Sign Detail Recorded Client Recorded Date Recorded By Document 11/22/17 11:41 DV [id number] 11/22/17 11:54 DV Document 11/29/17 11:03 DV [id number] 11/29/17 11:17 DV 11/22/17 11/29/17 11:41 11:03 Wound Center Nurse 2 #8- RT MED LE CLUSTER -Time 11:48 11:04 -Correct Patient Yes Yes -Correct Side, Site, Position Yes Yes -Correct Procedure Yes -Procedure Performed Yes No -Type of Procedure Debridement -Clinical Debridement Selective -Post Debridement Size (cm) - Length 11.0 -Post Debridement Size (cm) - Width 11.0 -Post Debridement Size (cm) - Depth 0.1 -Total Square Cm 121.00 -Wound/Ulcer Outcome Not Healed Healed- Epithelialized -Ulcer Cleansing Rinsed/ Irrigated with Saline -Foul Odor after Cleansing No -Bioengineered Tissue No -Bleeding Controlled with Pressure -Treatment Response Procedure Tolerated Well #7 RIGHT DORSAL FOOT -Time 11:47 11:04 -Correct Patient Yes Yes -Correct Side, Site, Position Yes Yes -Correct Procedure Yes Yes -Procedure Performed Yes Yes -Type of Procedure Debridement Debridement -Clinical Debridement Subcutaneous Subcutaneous -Post Debridement Size (cm) - Length 0.6 0.3 -Post Debridement Size (cm) - Width 1.1 0.5 -Post Debridement Size (cm) - Depth 0.1 0.1 -Total Square Cm 0.66 0.15 -Wound/Ulcer Outcome Not Healed Not Healed -Ulcer Cleansing Rinsed/ Rinsed/ Irrigated with Irrigated with Saline Saline -Foul Odor after Cleansing No No -Bioengineered Tissue No No -Bleeding Controlled with Pressure Pressure -Treatment Response Procedure Procedure Tolerated Well Tolerated Well #6 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 INFERIOR -Time 11:42 -Correct Patient Yes -Correct Side, Site, Position Yes -Procedure Performed No -Post Debridement Size (cm) - Length 0.1 -Post Debridement Size (cm) - Width 0.1 -Post Debridement Size (cm) - Depth 0.1 -Total Square Cm 0.01 -Wound/Ulcer Outcome Healed- Epithelialized Pain Scale: 0-10 Numeric Is Patient Pain Free? No Wound debrided: Right dorsal foot Laterality: Right Type of Debridement: Excisional debridement Anesthesia Used: 4% Lidocaine Solution Depth: in the subcutaneous layer Percentage of wound debrided: 100 Instrument Used: 7mm curette Tissue Removed: Adherent slough, fibrin, hyperkeratotic tissue Severity: Fat Layer Exposed Amount of bleeding with debridement: Mild Bleeding Controlled with: Pressure Patient tolerated procedure well Assessment/Plan Active Problems (Last Reviewed 10/25/17 @ 01:47 by Oziel Angel MD) Ulcer of right lower extremity with fat layer exposed (Acute) Ulcer of right foot with fat layer exposed (Acute) PVD (peripheral vascular disease) (Chronic) Controlled diabetes mellitus (Chronic) Edema, lower extremity (Chronic) Assessment: Ulcer to left lower leg with fat layer exposed. DM II. Lower extremity edema Plan: Patient was again examined and evaluated today. The right dorsal foot ulcer was debrided subcutaneously as noted in the clinical panel. The previous ulcer to left lower leg remains healed today. Once the ulcer was debrided and carefully cleansed, the ulcer site was then dressed with silvercel, followed by a dry sterile dressing along with tubigrips followed by JASMINE wraps. The dressing is to be changed in this manner daily. She will do this with the help of family friend, her son, and home health. It was again discussed the importance of keeping the compression from the toes all the way up to the knee. She has not been fully compliant with this in the past. She was instrcuted on the importance of keeping pressure off of all of the ulcer sites at all times while seated. I again stressed the importance of compression with the patient's healing. She was instructed to wear the tubigrip and to keep her lower extremities elevated while seated. She is to continue with lasix as prescribed by Dr. Franco. I recommended a high-protein diet for this patient to supplement wound healing. Patient is to continue antibiotics given to her by Dr. Franco until complete. Patient was educated on all signs and symptoms of local and systemic infection, and was instructed to go to the ER immediately should she notice any. All other questions were answered to the patient's satisfaction. The patient will follow-up in clinic in 1 week to check on progress, or sooner if needed.
== END 2017-12-05 23:59 ==
LOC: WC 10:30
PROVIDERS: Family Provider Family Medicine Geriatric Medicine; PCP Family Medicine Geriatric Medicine; Visit Provider Podiatrist
DX: E11.622 Type 2 diabetes mellitus with other skin ulcer (principal); E11.22 Type 2 diabetes mellitus with diabetic chronic kidney disease; N17.9 Acute kidney failure, unspecified; R60.0 Localized edema; E11.51 Type 2 diabetes mellitus with diabetic peripheral angiopathy without gangrene; G35 Multiple sclerosis; L97.212 Non-pressure chronic ulcer of right calf with fat layer exposed; L97.512 Non-pressure chronic ulcer of other part of right foot with fat layer exposed; E11.621 Type 2 diabetes mellitus with foot ulcer
CPT/HCPCS: 11042

== ENCOUNTER 2017-12-15 17:24 | Emergency (ER) | payer MEDICARE, SELFPAY ==
[2017-12-15 17:24] VITALS: BP 163/64; PULSE 66; RESP 16; TEMP 36.8; O2SAT 90; BMI 41.0
[2017-12-15] MEDS: Doxycycline 100 MG CAPSULE PO (18:14)
--- NOTE | 2017-12-15 18:24 | ED.VISSUMM ---
- ER Visit Summary Date of Service: 12/15/17 Chief Complaint: Cellulitis History of Present Illness: The patient is a 72 F presenting for evaluation due to concern for cellulitis. Patient has a history of poorly healing ulcers and her legs. She reports that she is been going to wound care once a week, and having visiting nurse come 3 times a week. Patient actually recently finished a course of antibiotics for infection, but states that over the course last 24 hours she has had interruption of pain and redness going up her left leg. No presence of fevers. Physical Examination: Lower extremity exam shows evidence of chronic nonhealing leg ulcers. There is edema and some weeping from the top of the foot. There is erythema noted over the patient's medial thigh wound that does not streak all the way up into the groin. No subcutaneous emphysema. Test Results: None indicated Emergency Department Course and Treatment: Patient presented for evaluation secondary to concern for cellulitis. She has normal vital signs and no fever. I do not believe the laboratory workup is indicated, but she does appear to have cellulitis. Patient will be started on a course of doxycycline. She was given strict return instructions, she voiced understanding and her own words. Patient was discharged. Disposition: Discharge Impression: 1. Left leg cellulitis This note was generated with [employer] dictation software. It may contain incorrect words, spelling, and punctuation that were not noted in review of the chart prior to signing ED Disposition - Plan for ED Patient: Disposition: Home or Assisted Living Chief Complaint: Cellulitis Diagnosis: Cellulitis Instructions: Discharge Instructions for Cellulitis Prescriptions: Doxycycline Monohydrate 100 mg PO BID #20 cap Additional Instructions: Followup with your nurse and wound care as scheduled
[2017-12-15 18:28] VITALS: RESP 14
== END 2017-12-15 18:34 | disposition home or self-care (01) ==
PROVIDERS: Emergency Provider Emergency Medicine; Family Provider Family Medicine Geriatric Medicine; PCP Family Medicine Geriatric Medicine
DX: L03.116 Cellulitis of left lower limb (principal)
CPT/HCPCS: 99283

== ENCOUNTER 2017-12-16 03:07 | Inpatient (IN) | payer MEDICARE, SELFPAY ==
[2017-12-16] VITALS (11 sets, daily range): BP systolic 98–140; BP diastolic 42–110; PULSE 62–80; RESP 16–20; TEMP 36.3–37.5; O2SAT 94–100; BMI 39.0; BMI 42.2
--- NOTE | 2017-12-16 03:25 | CT_ITS ---
STUDY: CT BRAIN WITHOUT CONTRAST REASON FOR EXAM: Female, 72 years old. Patient fell and hit the back of the head. RADIATION DOSAGE (If Supplied By Facility): CTDIvol = ( 44.99 ) mGy, DLP = ( 779.24 ) mGycm TECHNIQUE: Transaxial CT imaging of the brain was performed without administration of intravenous contrast material. Individualized dose optimization techniques were used for this CT. COMPARISON: None. FINDINGS: There is generalized brain atrophy with no acute hemorrhage or acute infarction and no intra or extra-axial tumor mass. Nonspecific microangiopathic changes are seen in both white matter tracts especially in the centrum semiovales. The calvarium is intact. There are no scalp swellings. The orbits and mastoid air cells are normal. There are inflammatory changes in the left maxillary sinus.. CT/Brain/Head without Contrast IMPRESSION: No acute findings in the brain. Generalized brain atrophy. Chronic inflammatory changes in the left maxillary sinus Electronically Signed: Jurgen Ledesma MD at 4:12 EST Tel , Service support ,
--- NOTE | 2017-12-16 03:39 | EKG12_ITS ---
Test Reason : FALL Blood Pressure : / mmHG Vent. Rate : 076 BPM Atrial Rate : 076 BPM P-R Int : 146 ms QRS Dur : 072 ms QT Int : 384 ms P-R-T Axes : -12 010 094 degrees QTc Int : 432 ms Poor data quality, interpretation may be adversely affected Normal sinus rhythm Nonspecific ST and T wave abnormality Abnormal ECG Confirmed by BLACK HATCH, PARDEEP ([id number]), industrial editor SHAHNAZ MARINA ([id number] on 12/18/2017 3:58:22 PM Referred By: BOBBY Confirmed By:PARDEEP CLEANING MD
--- NOTE | 2017-12-16 03:42 | ED.RN ---
PT IS A&O X 3 WITH SOME CONFUSION.
--- NOTE | 2017-12-16 03:50 | RAD_ITS ---
STUDY: X-RAY CHEST REASON FOR EXAM: Female, 72 years old. Patient fell TECHNIQUE: 1 view COMPARISON: 10/24/2017 FINDINGS: There is mild cardiomegaly with a tortuous aorta. Median sternotomy wires are in place. The lungs are clear. There are no pleural effusions.. Normal visualized thoracic spine. Normal visualized ribs, clavicles, and shoulders. There is no demonstrated abnormality of the visualized soft tissue structures of the upper abdomen. RAD/Chest 1 View (Portable) IMPRESSION: Moderate cardiomegaly. No acute findings in the lungs Electronically Signed: Jurgen Ledesma MD at 4:13 EST Tel , Service support ,
[2017-12-16 04:23] LABS: Absolute Lymphocyte Count 1.24 X10^3/ul (0.83-4.51); Absolute Neutrophil Count 21.9 X10^3/uL (2.0-7.7); Basophil# 0.01 X10^3/uL; Eosinophil# 0.03 X10^3/uL; Eosinophils% 0.1 % (0-5); Hematocrit 36.9 % (37-47); Hemoglobin 10.6 g/dl (12.0-15.0); Lymphocyte # 1.24 X10^3/ul (4.0); Lymphocyte % 5.2 % (19-41); Mean Corp Hgb Conc 28.7 g/gl (32-36); Mean Corpuscular Hgb 23.2 pg (27.0-32.0); Mean Corpuscular Volume 80.9 fL (81-99); Mean Platelet Vol. 9.7 fl (6.2-12.0); Monocyte# 0.75 X10^3/uL; Monocyte% 3.1 % (0-10); Neutrophil % 91.4 % (47-70); Platelet Count 262 K/mm3 (150-450); RBC Distribution Width SD 62.5 fl (35.1-43.9); Red Blood Count 4.56 M/mm3 (4.2-5.4)
[2017-12-16 04:33] LABS: ALB/GLOB Ratio 0.9 RATIO (0.9-2.4); AST(SGOT) 18 U/L (15-37); Alanine Aminotransfer ALT/SGPT 22 U/L (13-56); Albumin, Serum 3.2 g/dL (3.2-5.0); Alkaline Phosphatase 73 U/L (45-117); Anion Gap 9 (5-15); BUN 26 mg/dL (7-18); BUN/Creat Ratio 16.1 RATIO (10-20); Calcium,Total 9.4 mg/dL (8.5-10.1); Chloride 105 mmol/L (98-107); Creatinine, Serum 1.61 mg/dL (0.55-1.02); EST Glomerular Filtration Rate 33 mL/min (>60); Est Glom Filt Rate - Afr Amer 40 mL/min (>60); Estimated Creatinine Clearance 22.35 ml/min; Globulin 3.5 g/dL (2.2-4.2); Glucose 155 mg/dL (74-106); Potassium 4.1 mmol/L (3.5-5.1); Protein, Total 6.7 g/dL (6.4-8.2); Sodium Level 144 mmol/L (136-145)
[2017-12-16 04:36] LABS: Differential Indicated SCAN CRITERIA MET; POSITIVE COUNT NO; POSITIVE DIFFERENTIAL YES; POSITIVE MORPHOLOGY YES
[2017-12-16 04:39] LABS: Anisocytosis 2+; Hypochromasia 2+; Platelet Estimate ADEQUATE (ADEQ); Polychromasia RARE
[2017-12-16 04:40] LABS: Microcytosis 1+; Ovalocyte RARE
--- NOTE | 2017-12-16 05:35 | ED.RN ---
CALLED SON [facility] PER PT REQUEST.
--- NOTE | 2017-12-16 05:55 | ED.DCSUM_ITS ---
- ER Visit Summary Date of Service: 12/16/17 Chief Complaint: Fall History of Present Illness: The patient is a 72 F who presents after a fall. Patient provides an inconsistent history. The patient states that she had called EMS for her sister. She states that shortly before EMS arrival she had gotten dizzy when she stood up and fell and hit her head. She denies loss of consciousness. EMS was called out for gabapentin overdose. Patient states that she has been taking up to 6 800 mg gabapentin per day. I spoke to the medic who states that EMS have been alerted by life alert and dispatch spoke to the patient. They were toned out for overdose and fall. They note that the patient was very confused at the time of their evaluation. The medic was familiar with this patient. She states that at their evaluation on this run she was only oriented x1. Patient denies fevers chest pain shortness of breath vomiting. She has been being treated for cellulitis. She was seen last night in the emergency department for cellulitis of the left leg and started on doxycycline. Physical Examination: Afebrile blood pressure 140/110 vitals otherwise normal There is an abrasion to the occipital scalp with small amount of dried blood no laceration Heart regular rate and rhythm Lungs clear Abdomen soft Patient has lymphedema of the bilateral lower extremities, patient has cellulitis of the left lower leg extending all the way up to the proximal thigh. This is hot to the touch. I do not appreciate lymphangitic streaking. There is no fluctuance or wound. Test Results: EKG shows sinus rhythm at a rate of 76. Labs notable for white blood cell count 24.0. Creatinine 1.61. Lactic acid pending at the time of this dictation. Chest x-ray shows cardiomegaly. CT the head shows no acute findings. Emergency Department Course and Treatment: Given patient's confusion she underwent the above workup. She has significant leukocytosis however she does not meet Sirs criteria. I did still obtain blood cultures. Patient was treated with IV vancomycin. The nurse who saw the patient last night also saw her today and notes that the cellulitis appears significantly worse. Patient will needed admitted for IV antibiotics. Treatment Plan: [] Disposition: Admit Impression: Cellulitis left leg Closed head injury Confusion This note was generated with [employer] dictation software. It may contain incorrect words, spelling, and punctuation that were not noted in review of the chart prior to signing ED Disposition - Plan for ED Patient: Chief Complaint: Fall
[2017-12-16 05:56] LABS: Lactic Acid 2.1 mmol/L (0.4-2.0)
--- NOTE | 2017-12-16 05:57 | HP.PCM_ITS ---
Problem List (1) Ulcer of right lower extremity with fat layer exposed Status: Acute (2) Cellulitis of right leg Status: Acute (3) Ulcer of right foot with fat layer exposed Status: Acute (4) Ulcer of left lower extremity with fat layer exposed Status: Acute (5) PVD (peripheral vascular disease) Status: Chronic (6) Ulcer of left lower extremity with fat layer exposed Status: Acute (7) Controlled diabetes mellitus Status: Chronic (8) Edema, lower extremity Status: Chronic (9) Presence of stent in coronary artery Status: Chronic Comment: PTCA/stent to CX; PTCA/Stent PTCA/stent to prox RCA 05/06; PTCA/LILY in mid to distal RCA 08/29/12 (10) Atherosclerotic heart disease of [place] coronary artery without angina pectoris Status: Chronic Qualifiers: [place] vs. transplanted heart: [place] heart Qualified Code(s): I25.10 - Atherosclerotic heart disease of [place] coronary artery without angina pectoris Comment: PTCA/stent to CX; PTCA/Stent PTCA/stent to prox RCA 05/06; PTCA/LILY in mid to distal RCA 08/29/12; CABG x2 ARREGUIN tp LAD and SVG to OM2 01/02/11 (11) S/P CABG (coronary artery bypass graft) Status: Chronic Comment: CABG x2 ARREGUIN tp LAD and SVG to OM2 01/02/11 (12) Paroxysmal atrial fibrillation Status: Chronic (13) Hyperlipidemia Status: Chronic Qualifiers: Hyperlipidemia type: unspecified Qualified Code(s): E78.5 - Hyperlipidemia, unspecified (14) Hypertension Status: Chronic Qualifiers: Hypertension type: essential hypertension Qualified Code(s): I10 - Essential (primary) hypertension History of Present Illness Date of Admission: 12/16/17 Chief Complaint: Left leg cellulitis for 1 day The patient is a 72 year old F with multiple comorbidities came to ER for left legs redness and pain for 1 day. She came to the yesterday evening and was sent home on doxycycline. After after she went home. she has gotten dizzy and slipped when she stood up and then fell and hit back of head with a small bump on the head. She takes heavy dose of gabapentin 800 mg 6 times a day but her home medications shows 800 mg twice daily. She claims she is here for left leg pain, redness which is almost up to proximal thigh. She has history of cardiac and has big scars over both legs. Vitals in the ED shows temperature 99.2?F, no tachycardia, tachypnea or hypoxia. She has leukocytosis of 24,000 WBC with 90% neutrophils. BUN/creatinine 26/1.61. Last BUN/creatinine 37/1.5 in October 2017. [] She was admitted here in October 2017 for cellulitis of right leg. Past Medical History Past Medical History (Chronic Problems): Chronic Problems (Last Reviewed 10/25/17 @ 01:47 by Oziel Angel MD) PVD (peripheral vascular disease) (Chronic) Controlled diabetes mellitus (Chronic) Edema, lower extremity (Chronic) Presence of stent in coronary artery (Chronic) PTCA/stent to CX; PTCA/Stent PTCA/stent to prox RCA 05/06; PTCA/LILY in mid to distal RCA 08/29/12 Atherosclerotic heart disease of [place] coronary artery without angina pectoris (Chronic) PTCA/stent to CX; PTCA/Stent PTCA/stent to prox RCA 05/06; PTCA/LILY in mid to distal RCA 08/29/12; CABG x2 ARREGUIN tp LAD and SVG to OM2 01/02/11 S/P CABG (coronary artery bypass graft) (Chronic ~01/02/11) CABG x2 ARREGUIN tp LAD and SVG to OM2 01/02/11 Paroxysmal atrial fibrillation (Chronic) Hyperlipidemia (Chronic) Hypertension (Chronic) Medical History: Medical History (Last Reviewed 10/25/17 @ 01:47 by Oziel Angel MD) PVD (peripheral vascular disease) (Chronic) I73.9 Ulcer of left lower extremity with fat layer exposed (Acute) L97.922 Controlled diabetes mellitus (Chronic) E11.9 Edema, lower extremity (Chronic) R60.0 Atherosclerotic heart disease of [place] coronary artery without angina pectoris (Chronic) I25.10 PTCA/stent to CX; PTCA/Stent PTCA/stent to prox RCA 05/06; PTCA/LILY in mid to distal RCA 08/29/12; CABG x2 ARREGUIN tp LAD and SVG to OM2 01/02/11 Paroxysmal atrial fibrillation (Chronic) I48.0 Hyperlipidemia (Chronic) E78.5 Hypertension (Chronic) 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 Diabetic ulcer of both lower extremities E11.622, L97.919, L97922 History of DVT (deep vein thrombosis) Z86.718 Multiple sclerosis G35 Trigeminal neuralgia G50.0 Type 2 diabetes mellitus E11.9 LAURITA (obstructive sleep apnea) G47.33 Peripheral vascular disease I73.9 Venous insufficiency of both lower extremities I87.2 Allergies ciprofloxacin [From Cipro] Allergy (Verified 12/16/17 03:15) Hives ciprofloxacin HCl [From Cipro] Allergy (Verified 12/16/17 03:15) Hives Latex, Natural Rubber Allergy (Verified 12/16/17 03:15) Rash Penicillins [PCN] Allergy (Verified 12/16/17 03:15) Hives codeine Adverse Reaction (Unknown, Verified 12/16/17 03:15) Unknown adhesive tape Adverse Reaction (Verified 12/16/17 03:15) Rash Home Medications: Ambulatory Orders Medication Instructions Recorded Docusate Sodium [Colace] 100 mg PO DAILY PRN 05/10/17 Magnesium Oxide 400 mg PO BID 05/10/17 Pantoprazole Sodium [Protonix] 40 mg PO DAILY 05/10/17 Rivaroxaban [Xarelto] 15 mg PO DAILY 05/10/17 metoprolol tartrate 50 mg tablet 50 mg PO BID #180 tab 09/18/17 amiodarone 200 mg tablet 200 mg PO DAILY #90 tab 10/10/17 Duloxetine HCl 60 mg PO DAILY 10/24/17 furosemide 40 mg tablet 40 mg PO BID tab 10/25/17 Acetaminophen [Tylenol Tablet] 1,000 mg PO Q8 tablet 10/27/17 Gabapentin [Neurontin] 800 mg PO BID 3 Days #6 tab 10/27/17 Glucerna Shake 120 ml PO 4X/DAY liquid 10/27/17 Oxycodone [Oxyir] 5 mg PO Q6H PRN PRN 3 Days #12 tab 10/27/17 Ferrous Sulfate 325 mg PO DAILY@0800 11/22/17 Potassium Chloride [Klor-Con] 20 meq PO BID 11/22/17 Doxycycline Monohydrate 100 mg PO BID #20 cap 12/15/17 Surgical History: Surgical History (Last Reviewed 10/25/17 @ 01:47 by Oziel Angel MD) Presence of stent in coronary artery (Chronic) Z95.5 PTCA/stent to CX; PTCA/Stent PTCA/stent to prox RCA 05/06; PTCA/LILY in mid to distal RCA 08/29/12 S/P CABG (coronary artery bypass graft) (Chronic) Onset Date: ~01/02/11 Z95.1 CABG x2 ARREGUIN tp LAD and SVG to OM2 01/02/11 History of cataract surgery Z98.49 History of cholecystectomy Z98.890, Z90.49 History of hernia repair Z98.890, Z87.19 History of tonsillectomy and adenoidectomy Z98.890 History of total hysterectomy Z98.890, Z90.710 Postsurgical percutaneous transluminal coronary angioplasty (PTCA) status Z98.61 PTCA/stent to CX; PTCA/Stent PTCA/stent to prox RCA 05/06; PTCA/LILY in mid to distal RCA 08/29/12 Surgical History: angioplasty, appendectomy, cholecystectomy, coronary bypass surgery, hysterectomy, tonsillectomy, - - R ankle surgery with hardware. placement of stents (cardiac or lower extremity. patient is unsure). excision upper lip carcinoma. Incision and drainage and excisional debridement infected traumatic open hematoma wound right anterior leg (90 cm2) and incision and drainage and excisional debridement infected traumatic open hematoma wound left anterior leg (72 cm2) - 12/29/14. 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 Sibling Family History: Family History (Last Reviewed 10/25/17 @ 01:48 by Oziel Angel MD) Father Heart disease Mother Hypertension Cancer Brother Diabetes Hypertension History Items: Diabetes Review of Systems Constitutional: Reports: Malaise, Weakness. Denies: Chills, Fever HEENT: Denies: Head Aches, Sinus Congestion, Sinus Drainage Cardiovascular: Reports: Light Headedness. Denies: Chest Pain, Palpitations Respiratory: Denies: Cough, Shortness of breath at rest, Sputum production Gastrointestinal: Denies: Abdominal Pain, Nausea, Vomiting Genitourinary: Denies: Dysuria, Frequency, Hematuria, Urgency Musculoskeletal: Reports: Joint Pain, Joint stiffness, Leg Pain, Muscle pain. Denies: Joint Tenderness Skin: Denies: Rash, Wounds Neurological: Reports: Balance problems, Incoordination, - - Fall. Denies: Focal weakness, Numbness, Tingling Psychiatric: Denies: Anxiety, Depression, Homicidal Ideations, Suicidal Ideations Hematologic/ Lymphatic: Denies: Easy Bruising, Easy Bleeding VTE Information - Inpt Only VTE Present on Admission: No VTE Mechan Device Prophylaxis: None Reason prophylaxis not ordered:: Procedure Not Indicated - On Xarelto Patient Problems: Active and Suspected Problems (Last Reviewed 10/25/17 @ 01:47 by Oziel Angel MD) Ulcer of left lower extremity with fat layer exposed (Acute) - Physical Exam General: Alert, Oriented x3, Cooperative HEENT: Atraumatic, PERRLA, EOMI, Normocephalic Neck: Supple, No JVD, Negative Carotid Bruits Lungs: Clear to auscultation, Normal air movement, No rhonchi, No wheeze, No rales Cardiovascular: Regular rate, No murmurs Abdomen: Bowel Sounds Present, Soft, Non Tender, Non-Distended Extremities: Capillary Refill Less than 3 Seconds, Edema Skin: Rash Present - Diffuse erythema, tenderness or induration of left lower extremity up to proximal thigh. Musculoskeletal: No Tenderness to Palpation of Joints or Extremities, Arthritic Changes, Muscle Wasting Neurological: Cranial nerves II-XII grossly intact Psych/Mental Status: Normal Affect, Appropriate Vital Signs Temp Pulse Resp BP Pulse Ox 99.2 F H 79 16 112/51 L 94 12/16/17 03:09 12/16/17 05:50 12/16/17 03:09 12/16/17 05:50 12/16/17 05:50 Oxygen Delivery Method Room Air Weight: 200 lb Body Mass Index (BMI) 39.0 Finger Stick Blood Glucose 187 Laboratory Tests Past 24 Hrs 12/16/17 12/16/17 12/16/17 04:05 04:05 05:15 WBC 24.0 H RBC 4.56 Hgb 10.6 L Hct 36.9 L MCV 80.9 L MCH 23.2 L MCHC 28.7 L RDW 21.0 H RDW Differential 62.5 H Plt Count 262 MPV 9.7 Immature Gran % (Auto) 0.200 Neut % (Auto) 91.4 H Lymph % (Auto) 5.2 L [place] % (Auto) 3.1 Eos % (Auto) 0.1 Baso % (Auto) 0.0 Absolute Neuts (auto) 21.9 H Absolute Lymphs (auto) 1.24 Total Counted Not Reportable Differential Comment Platelet Estimate ADEQUATE Polychromasia RARE Hypochromasia 2+ Anisocytosis 2+ Microcytosis 1+ Ovalocytes RARE Sodium 144 Potassium 4.1 Chloride 105 Carbon Dioxide 30.0 Anion Gap 9 BUN 26 H Creatinine 1.61 H Estim Creat Clear Calc 22.35 Est GFR (MDRD) Af Amer 40 L Est GFR (MDRD) Non-Af 33 L BUN/Creatinine Ratio 16.1 Glucose 155 H Lactic Acid 2.1 H Calcium 9.4 Total Bilirubin 1.10 H AST 18 ALT 22 Alkaline Phosphatase 73 Total Protein 6.7 Albumin 3.2 Globulin 3.5 Albumin/Globulin Ratio 0.9 Assessment/Plan All Active Problems (Last Reviewed 10/25/17 @ 01:47 by Oziel Angel MD) Ulcer of right lower extremity with fat layer exposed (Acute) Cellulitis of right leg (Acute) Ulcer of right foot with fat layer exposed (Acute) Ulcer of left lower extremity with fat layer exposed (Acute) Ulcer of left lower extremity with fat layer exposed (Acute) The patient is a 72 year old F with multiple comorbidities came to ER for left leg redness and pain for 1 day. She came to the yesterday evening and was sent home on doxycycline. At home, she got dizzy and slipped when she stood up and then fell and hit back of head with a small bump on the head. She takes heavy dose of gabapentin 800 mg 6 times a day but her home medications shows 800 mg twice daily. She claims she is here for left leg pain, redness which is almost up to proximal thigh. She has history of cardiac and has big scars over both legs. Vitals in the ED shows temperature 99.2?F, no tachycardia, tachypnea or hypoxia. She has leukocytosis of 24,000 WBC with 90% neutrophils. BUN/creatinine 26/1.61. Last BUN/creatinine 37/1.5 in October 2017. [] She was admitted here in October 2017 for cellulitis of right leg. 1. Left lower extremity cellulitis: Patient is being admitted on the telemetry floor. Based on the previous right wound culture she grew Pseudomonas, staph hemolyticus and E. coli in November 2017, she is started on IV vancomycin and cefepime. Urine culture had E. coli in October 2017. Blood cultures x2, UA and urine culture ordered. Monitor CBC. IV fluid normal saline 100 mils per hour. MRSA nasal screen. 2. Dizziness, fall secondary to incoordination/weak lower extremities and gabapentin high-dose: Patient is on Xarelto for A. fib. CT head was done and does not show acute change. There is a small bump on the occipital region. No laceration. PT and OT evaluation and management. Patient does not want to go fpc. 3. Paroxysmal A. fib on Xarelto: Currently patient EKG shows normal sinus rhythm at [address]-T changes. 4. Diabetes mellitus 2: Blood sugar is fairly well controlled. Glucose 155 on BMP. Last A1c was 6.2 in April 2017. A1c ordered. Accu-Chek before meals and at bedtime and cover with NovoLog sliding scale. 5. Coronary artery disease status post stent in RCA status post CABG x2 in 2010: Continue cardiac medication. 6. Peripheral arterial disease and chronic venous insufficiency: The patient had arterial Doppler study in December 2017 which showed suspected arterial calcification bilaterally in lower extremities as ankle pressure could not be determined on either side due to noncompressibility. 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
[2017-12-16 06:49] LABS: Erythrocyte Sedimentation Rate 32 mm/hr (0-30)
[2017-12-16] MEDS: Insulin Lispro 100 UNIT/ML INSULN.PEN SQ (07:09)
[2017-12-16 07:10] LABS: Bedside Glucose 175 mg/dL (70-110)
--- NOTE | 2017-12-16 07:24 | PCM.RX.CS ---
Consult Pharmacy has been consulted to manage selected antiobiotic: Vancomycin Type of Consult: New start Suspected Infection: Skin/Soft tissue Prior Doses of Antibiotics Received/Current Regimen: Received 1250mg IV x1 in ER this morning at 05:43 Labs: Sodium 144 mmol/L (136-145) 12/16/17 04:05 Potassium 4.1 mmol/L (3.5-5.1) 12/16/17 04:05 Chloride 105 mmol/L (98-107) 12/16/17 04:05 Carbon Dioxide 30.0 mmol/L (21.0-32.0) 12/16/17 04:05 Anion Gap 9 (5-15) 12/16/17 04:05 BUN 26 mg/dL (7-18) H 12/16/17 04:05 Creatinine 1.61 mg/dL (0.55-1.02) H 12/16/17 04:05 Est GFR (MDRD) Af Amer 40 mL/min (>60) L 12/16/17 04:05 Est GFR (MDRD) Non-Af 33 mL/min (>60) L 12/16/17 04:05 BUN/Creatinine Ratio 16.1 RATIO (10-20) 12/16/17 04:05 Glucose 155 mg/dL (74-106) H 12/16/17 04:05 Weight used for dosin kg Estimated Creatinine Clearance: 22 ml/min Goal Trough: 10-15 mcg/mL Pharmacy Plan for Drug Dosing: Taking into account the patient's weight and CrCl, plan to continue with 1750mg IV q48h per the [facility] pharmacist-managed IV vancomycin dosing protocol. Since the first dose in ER wasn't quite the usual standard 15mg/kg loading dose, we will schedule the first 1750mg dose to given about 36 hours after that ER dose and then continue with q48h from there. A trough will be obtained before the 3rd dose. Pharmacy Service will continue to monitor and adjust dosing as required. Follow-Up Labs: Trough Vancomycin Labs to be done on [date and time ordered]: 12/19/17 at 17:30
--- NOTE | 2017-12-16 07:30 | PHA.PHARE_ITS ---
Consult Pharmacy has been consulted to manage selected antiobiotic: Vancomycin Type of Consult: New start Suspected Infection: Skin/Soft tissue Prior Doses of Antibiotics Received/Current Regimen: Received 1250mg IV x1 in ER this morning at 05:43 Labs: Sodium 144 mmol/L (136-145) 12/16/17 04:05 Potassium 4.1 mmol/L (3.5-5.1) 12/16/17 04:05 Chloride 105 mmol/L (98-107) 12/16/17 04:05 Carbon Dioxide 30.0 mmol/L (21.0-32.0) 12/16/17 04:05 Anion Gap 9 (5-15) 12/16/17 04:05 BUN 26 mg/dL (7-18) H 12/16/17 04:05 Creatinine 1.61 mg/dL (0.55-1.02) H 12/16/17 04:05 Est GFR (MDRD) Af Amer 40 mL/min (>60) L 12/16/17 04:05 Est GFR (MDRD) Non-Af 33 mL/min (>60) L 12/16/17 04:05 BUN/Creatinine Ratio 16.1 RATIO (10-20) 12/16/17 04:05 Glucose 155 mg/dL (74-106) H 12/16/17 04:05 Weight used for dosin kg Estimated Creatinine Clearance: 22 ml/min Goal Trough: 10-15 mcg/mL Pharmacy Plan for Drug Dosing: Taking into account the patient's weight and CrCl, plan to continue with 1750mg IV q48h per the [facility] pharmacist-managed IV vancomycin dosing protocol. Since the first dose in ER wasn't quite the usual standard 15mg/kg loading dose, we will schedule the first 1750mg dose to given about 36 hours after that ER dose and then continue with q48h from there. A trough will be obtained before the 3rd dose. Pharmacy Service will continue to monitor and adjust dosing as required. Follow-Up Labs: Trough Vancomycin Labs to be done on [date and time ordered]: 12/19/17 at 17:30
[2017-12-16] MEDS: 0.9% Normal Saline 1,000 ML 100 ML IV (07:39)
[2017-12-16] MEDS: Piperacil/Tazobactam 3.375 GM/50 ML ML IV ×3 (07:47→21:20)
[2017-12-16 08:56] LABS: Hemoglobin A1c 5.9 % (4.2-6.3)
[2017-12-16 09:22] LABS: Reflex Lactate? Y
--- NOTE | 2017-12-16 09:32 | PCM.PN.HOSP ---
Patient Problems: Active and Suspected Problems (Last Reviewed 10/25/17 @ 01:47 by Oziel Angel MD) Left leg cellulitis (Acute) Subjective: still with erythema and pain of LLE. Vitals/I&O's: Vital Signs Temp Pulse Resp BP Pulse Ox 37.2 C 80 16 132/42 H 94 12/16/17 06:07 12/16/17 07:52 12/16/17 06:07 12/16/17 06:07 12/16/17 06:07 Oxygen Delivery Method Room Air Weight: 98 kg Body Mass Index (BMI) 42.2 Finger Stick Blood Glucose 187 General: Alert, Cooperative, No apparent distress HEENT: Atraumatic, Normocephalic Oral: Moist Mucosa, No Gingival or Mucosal Lesions/ Ulcerations Neck: No Nodes, Thyroid Normal Size and Texture Lungs: Clear to auscultation, Normal air movement, No rhonchi, No wheeze Cardiovascular: Regular rate, Regular Rhythm, Normal S1, Normal S2, No murmurs Abdomen: Bowel Sounds Present, Soft, Non Tender, Non-Distended, No Hepato-splenomegaly Extremities: No edema, No Calf Tenderness Skin: - - marked erythema LLE with exquisite TTP. no fluctuance. no induration. chronic changes bilateral lower extremities d/t prior surgeries. Psych/Mental Status: Normal Affect, Appropriate Laboratory Results 12/16/17 04:05: WBC 24.0 H, RBC 4.56, Hgb 10.6 L, Hct 36.9 L, MCV 80.9 L, MCH 23.2 L, MCHC 28.7 L, RDW 21.0 H, RDW Differential 62.5 H, Plt Count 262, MPV 9.7, Immature Gran % (Auto) 0.200, Neut % (Auto) 91.4 H, Lymph % (Auto) 5.2 L, [place] % (Auto) 3.1, Eos % (Auto) 0.1, Baso % (Auto) 0.0, Absolute Neuts (auto) 21.9 H, Absolute Lymphs (auto) 1.24, Total Counted Not Reportable, Differential Comment , Platelet Estimate ADEQUATE, Polychromasia RARE, Hypochromasia 2+, Anisocytosis 2+, Microcytosis 1+, Ovalocytes RARE 12/16/17 04:05: Sodium 144, Potassium 4.1, Chloride 105, Carbon Dioxide 30.0, Anion Gap 9, BUN 26 H, Creatinine 1.61 H, Estim Creat Clear Calc 22.35, Est GFR (MDRD) Af Amer 40 L, Est GFR (MDRD) Non-Af 33 L, BUN/Creatinine Ratio 16.1, Glucose 155 H, Calcium 9.4, Total Bilirubin 1.10 H, AST 18, ALT 22, Alkaline Phosphatase 73, Total Protein 6.7, Albumin 3.2, Globulin 3.5, Albumin/Globulin Ratio 0.9 12/16/17 04:05: ESR 32 H 12/16/17 04:05: Hemoglobin A1c 5.9 12/16/17 05:15: Lactic Acid 2.1 H 12/16/17 07:05: POC Glucose 175 H Current Medications Acetaminophen (Tylenol) 650 mg PO Q6H PRN PRN PRN Reason: Mild Pain (scale 0-3)/T>100.7 Amiodarone HCl (Cordarone) 200 mg PO DAILY [facility] Dextrose (D50w Syringe) 0 gm IV X1 PRN; Protocol PRN Reason: Hypoglycemia Docusate Sodium (Colace) 100 mg PO DAILY PRN PRN PRN Reason: Constipation Duloxetine HCl (Cymbalta) 60 mg PO DAILY [facility] Ferrous Sulfate (Ferrous Sulfate) 325 mg PO DAILY@0800 [facility] Gabapentin (Neurontin) 800 mg PO BID [facility] Glucagon () 1 mg IM .X1 PRN PRN Reason: Hypoglycemia Sodium Chloride () 1,000 mls @ 100 mls/hr IV .Q10H [facility] Last Admin: 12/16/17 07:39 Dose: 100 mls/hr Piperacillin Sod/Tazobactam Sod (Zosyn) 3.375 gm in 50 mls @ 12.5 mls/hr IV Q8 [facility] Last Admin: 12/16/17 07:47 Dose: 12.5 mls/hr Vancomycin IV Pharmacy to Dose (1 ea/ Sodium Chloride) 500 mls @ 250 mls/hr IV X1 PRN; Protocol PRN Reason: Rx to Dose Vancomycin HCl 1,750 mg/ (Sodium Chloride) 535 mls @ 250 mls/hr IV Q48H [facility] Insulin Human Lispro (Humalog Kwikpen (Bkc)) 0 unit SQ ACHS [facility]; Protocol Last Admin: 12/16/17 07:09 Dose: 2 u Magnesium Oxide (Mag-Ox 400) 400 mg PO BID [facility] Metoprolol Tartrate (Lopressor (Beta Tommy)) 50 mg PO BID [facility] Nutritional Formula (Lactose Free) (Glucerna Shake) 120 ml PO 4X/DAY [facility] Oxycodone HCl (Oxyir) 5 mg PO Q4H PRN PRN PRN Reason: Moderate Pain (pain scale 4-5) Rivaroxaban (Xarelto) 15 mg PO DAILY [facility] Sodium Chloride () 5 - 30 ml IV UD PRN PRN Reason: SALINE FLUSH Medical Necessity - Tobacco Use Smoking Status: Former smoker Assessment/Plan All Active Problems (Last Reviewed 10/25/17 @ 01:47 by Oziel Angel MD) Left leg cellulitis (Acute) Encephalopathy (Resolved) 1. LLE cellulitis still erythematous continue with vanc and zosyn follow up blood cultures check MRSA and MSSA suspect staph or strep as etiology and can likely drop zosyn in next 24h suspect compromised lymphatics given her surgeries and trauma that predispose her to recurrent infections. 2. Encephalopathy suspect combined with metabolic being due to her underlying infection and toxic due to gabapentin resolved 3. CKD 3 Cr at baseline avoid nephrotoxic agents 4. pAfib stable continue metoprolol and Xarelto 5. DVT proph: anticoagulated on Xarelto Code Visit Procedures: Other Procedure - See Report - Non billable rounding.
--- NOTE | 2017-12-16 09:36 | PN_ITS ---
Patient Problems: Active and Suspected Problems (Last Reviewed 10/25/17 @ 01:47 by Oziel Angel MD) Left leg cellulitis (Acute) Subjective: still with erythema and pain of LLE. Vitals/I&O's: Vital Signs Temp Pulse Resp BP Pulse Ox 37.2 C 80 16 132/42 H 94 12/16/17 06:07 12/16/17 07:52 12/16/17 06:07 12/16/17 06:07 12/16/17 06:07 Oxygen Delivery Method Room Air Weight: 98 kg Body Mass Index (BMI) 42.2 Finger Stick Blood Glucose 187 General: Alert, Cooperative, No apparent distress HEENT: Atraumatic, Normocephalic Oral: Moist Mucosa, No Gingival or Mucosal Lesions/ Ulcerations Neck: No Nodes, Thyroid Normal Size and Texture Lungs: Clear to auscultation, Normal air movement, No rhonchi, No wheeze Cardiovascular: Regular rate, Regular Rhythm, Normal S1, Normal S2, No murmurs Abdomen: Bowel Sounds Present, Soft, Non Tender, Non-Distended, No Hepato- splenomegaly Extremities: No edema, No Calf Tenderness Skin: - - marked erythema LLE with exquisite TTP. no fluctuance. no induration. chronic changes bilateral lower extremities d/t prior surgeries. Psych/Mental Status: Normal Affect, Appropriate Laboratory Results 12/16/17 04:05: WBC 24.0 H, RBC 4.56, Hgb 10.6 L, Hct 36.9 L, MCV 80.9 L, MCH 23.2 L, MCHC 28.7 L, RDW 21.0 H, RDW Differential 62.5 H, Plt Count 262, MPV 9.7, Immature Gran % (Auto) 0.200, Neut % (Auto) 91.4 H, Lymph % (Auto) 5.2 L, [place] % (Auto) 3.1, Eos % (Auto) 0.1, Baso % (Auto) 0.0, Absolute Neuts (auto) 21.9 H, Absolute Lymphs (auto) 1.24, Total Counted Not Reportable, Differential Comment , Platelet Estimate ADEQUATE, Polychromasia RARE, Hypochromasia 2+, Anisocytosis 2+, Microcytosis 1+, Ovalocytes RARE 12/16/17 04:05: Sodium 144, Potassium 4.1, Chloride 105, Carbon Dioxide 30.0, Anion Gap 9, BUN 26 H, Creatinine 1.61 H, Estim Creat Clear Calc 22.35, Est GFR (MDRD) Af Amer 40 L, Est GFR (MDRD) Non-Af 33 L, BUN/Creatinine Ratio 16.1, Glucose 155 H, Calcium 9.4, Total Bilirubin 1.10 H, AST 18, ALT 22, Alkaline Phosphatase 73, Total Protein 6.7, Albumin 3.2, Globulin 3.5, Albumin/Globulin Ratio 0.9 12/16/17 04:05: ESR 32 H 12/16/17 04:05: Hemoglobin A1c 5.9 12/16/17 05:15: Lactic Acid 2.1 H 12/16/17 07:05: POC Glucose 175 H Current Medications Acetaminophen (Tylenol) 650 mg PO Q6H PRN PRN PRN Reason: Mild Pain (scale 0-3)/T>100.7 Amiodarone HCl (Cordarone) 200 mg PO DAILY [facility] Dextrose (D50w Syringe) 0 gm IV X1 PRN; Protocol PRN Reason: Hypoglycemia Docusate Sodium (Colace) 100 mg PO DAILY PRN PRN PRN Reason: Constipation Duloxetine HCl (Cymbalta) 60 mg PO DAILY [facility] Ferrous Sulfate (Ferrous Sulfate) 325 mg PO DAILY@0800 [facility] Gabapentin (Neurontin) 800 mg PO BID [facility] Glucagon () 1 mg IM .X1 PRN PRN Reason: Hypoglycemia Sodium Chloride () 1,000 mls @ 100 mls/hr IV .Q10H [facility] Last Admin: 12/16/17 07:39 Dose: 100 mls/hr Piperacillin Sod/Tazobactam Sod (Zosyn) 3.375 gm in 50 mls @ 12.5 mls/hr IV Q8 [facility] Last Admin: 12/16/17 07:47 Dose: 12.5 mls/hr Vancomycin IV Pharmacy to Dose (1 ea/ Sodium Chloride) 500 mls @ 250 mls/hr IV X1 PRN; Protocol PRN Reason: Rx to Dose Vancomycin HCl 1,750 mg/ (Sodium Chloride) 535 mls @ 250 mls/hr IV Q48H [facility] Insulin Human Lispro (Humalog Kwikpen (Bkc)) 0 unit SQ ACHS [facility]; Protocol Last Admin: 12/16/17 07:09 Dose: 2 u Magnesium Oxide (Mag-Ox 400) 400 mg PO BID [facility] Metoprolol Tartrate (Lopressor (Beta Tommy)) 50 mg PO BID [facility] Nutritional Formula (Lactose Free) (Glucerna Shake) 120 ml PO 4X/DAY [facility] Oxycodone HCl (Oxyir) 5 mg PO Q4H PRN PRN PRN Reason: Moderate Pain (pain scale 4-5) Rivaroxaban (Xarelto) 15 mg PO DAILY [facility] Sodium Chloride () 5 - 30 ml IV UD PRN PRN Reason: SALINE FLUSH Medical Necessity - Tobacco Use Smoking Status: Former smoker Assessment/Plan All Active Problems (Last Reviewed 10/25/17 @ 01:47 by Oziel Angel MD) Left leg cellulitis (Acute) Encephalopathy (Resolved) 1. LLE cellulitis * still erythematous * continue with vanc and zosyn * follow up blood cultures * check MRSA and MSSA * suspect staph or strep as etiology and can likely drop zosyn in next 24h * suspect compromised lymphatics given her surgeries and trauma that predispose her to recurrent infections. 2. Encephalopathy * suspect combined with metabolic being due to her underlying infection and toxic due to gabapentin * resolved 3. CKD 3 * Cr at baseline * avoid nephrotoxic agents 4. pAfib * stable * continue metoprolol and Xarelto 5. DVT proph: anticoagulated on Xarelto Code Visit Procedures: Other Procedure - See Report - Non billable rounding.
[2017-12-16] MEDS: DULoxetine Hcl 60 MG Capsule PO (09:57)
[2017-12-16] MEDS: Metoprolol Tartrate 50 MG Tablet PO ×2 (09:58→21:20)
[2017-12-16] MEDS: Magnesium Oxide 400 MG Tablet PO ×2 (09:59→21:20)
[2017-12-16] MEDS: Gabapentin 800 MG Tablet PO ×2 (09:59→21:20)
[2017-12-16] MEDS: Amiodarone 200 MG Tablet PO (09:59)
[2017-12-16] MEDS: Ferrous Sulfate 325 MG Tablet PO (10:00)
[2017-12-16] MEDS: Rivaroxaban 15 MG Tablet PO (10:00)
[2017-12-16 10:24] LABS: Lactic Acid 4.1 mmol/L (0.4-2.0)
[2017-12-16 12:01] LABS: Bedside Glucose 125 mg/dL (70-110)
[2017-12-16 14:44] LABS: Bacteria 0 SEEN /hpf (None Seen); Color, Urine Yellow (Yellow); Glucose, Dipstick Normal (Normal); Ketone-Dipstick Negative (Negative); Leukocyte Esterase-Dipstick 25 /ul (Negative); Mucous, Urine 0 SEEN /hpf (<or=2+); Nitrite-Dipstick Negative (Negative); Occult Blood-Urine Negative /ul (Negative); Protein-Dipstick 15 mg/dl (Negative); Red Blood Cells-Urine 0 SEEN /hpf (0-5); Specific Gravity, Urine 1.015 (1.002-1.030); Urine Bilirubin Dipstick Negative (Negative); Urine Clarity Clear (Clear); Urine Urobilinogen Normal (Normal)
[2017-12-16 14:51] LABS: Squamous Epithelial Cells - UA 0-5 SEEN /hpf (5-10); White Blood Cells 0-5 SEEN /hpf (0-5)
[2017-12-16] MEDS: 0.9% Normal Saline 1,000 ML 150 ML IV (16:33)
[2017-12-16 16:46] LABS: M R Staph aureus DNA By PCR Negative (Negative); Probe Check PASS; Specimen Processing Control PASS
[2017-12-16 17:09] LABS: Lactic Acid 1.1 mmol/L (0.4-2.0)
[2017-12-16] MEDS: Acetaminophen 325 MG Tablet 650 MG PO (18:08)
[2017-12-16 18:16] LABS: Bedside Glucose 126 mg/dL (70-110)
[2017-12-16 23:26] LABS: Bedside Glucose 136 mg/dL (70-110)
[2017-12-17] MEDS: oxyCODONE 5 MG Tablet PO ×3 (00:37→20:04)
[2017-12-17] MEDS: Acetaminophen 325 MG Tablet 650 MG PO ×3 (00:38→17:49)
[2017-12-17 03:29] VITALS: BP 144/76; PULSE 60; RESP 18; TEMP 37.2; O2SAT 93
[2017-12-17] MEDS: Piperacil/Tazobactam 3.375 GM/50 ML ML IV ×2 (06:17→13:09)
[2017-12-17 06:35] LABS: Absolute Lymphocyte Count 1.07 X10^3/ul (0.83-4.51); Absolute Neutrophil Count 10.2 X10^3/uL (2.0-7.7); Basophil# 0.02 X10^3/uL; Basophil% 0.2 % (0-1); Eosinophils% 0.8 % (0-5); Hematocrit 31.5 % (37-47); Hemoglobin 8.2 g/dl (12.0-15.0); Lymphocyte # 1.07 X10^3/ul (4.0); Lymphocyte % 8.7 % (19-41); Mean Corpuscular Volume 84.5 fL (81-99); Mean Platelet Vol. 9.9 fl (6.2-12.0); Monocyte# 0.87 X10^3/uL; Monocyte% 7.1 % (0-10); Neutrophil # 10.15 X10^3/uL (2.7-7.7); Platelet Count 178 K/mm3 (150-450); RBC Distribution Width CV 21.1 % (11.6-14.6); RBC Distribution Width SD 65.4 fl (35.1-43.9); Red Blood Count 3.73 M/mm3 (4.2-5.4); White Blood Count 12.2 K/mm3 (4.4-11.0)
[2017-12-17 06:36] LABS: Anion Gap 8 (5-15); BUN 26 mg/dL (7-18); BUN/Creat Ratio 17.1 RATIO (10-20); Calcium,Total 8.5 mg/dL (8.5-10.1); Chloride 111 mmol/L (98-107); Creatinine, Serum 1.52 mg/dL (0.55-1.02); EST Glomerular Filtration Rate 36 mL/min (>60); Est Glom Filt Rate - Afr Amer 43 mL/min (>60); Estimated Creatinine Clearance 23.68 ml/min; Glucose 107 mg/dL (74-106); Potassium 4.3 mmol/L (3.5-5.1); Sodium Level 142 mmol/L (136-145)
[2017-12-17 06:42] LABS: Differential Indicated SCAN CRITERIA MET; POSITIVE COUNT NO; POSITIVE DIFFERENTIAL NO; POSITIVE MORPHOLOGY YES
[2017-12-17 06:52] LABS: Anisocytosis 3+; Differential Comment SCANNED; Hypochromasia 1+; Microcytosis 2+; Ovalocyte 1+
[2017-12-17 06:55] LABS: Bedside Glucose 118 mg/dL (70-110)
[2017-12-17 08:32] VITALS: BP 128/72; PULSE 78; RESP 18; TEMP 37; O2SAT 94
[2017-12-17] MEDS: Ferrous Sulfate 325 MG Tablet PO (08:33)
[2017-12-17] MEDS: DULoxetine Hcl 60 MG Capsule PO (08:34)
[2017-12-17] MEDS: Gabapentin 800 MG Tablet PO ×3 (08:35→21:16)
[2017-12-17] MEDS: Glucerna Shake 120 ML LIQUID PO ×2 (11:02→17:49)
[2017-12-17 11:03] VITALS: BP 128/72; PULSE 78
[2017-12-17] MEDS: Metoprolol Tartrate 50 MG Tablet PO ×2 (11:03→21:16)
[2017-12-17] MEDS: Amiodarone 200 MG Tablet PO (11:03)
[2017-12-17] MEDS: Magnesium Oxide 400 MG Tablet PO ×2 (11:04→21:16)
--- NOTE | 2017-12-17 11:45 | CASEMGMT ---
INÉS GLEASON Face to Face with patient for initial transition planning/care coordination assessment. RN ROSIBEL introduced self and role at [facility]. Patient sitting in chair, alert and oriented. Patient willing to participate in assessment and is able to answer all questions appropriately. Care providers, pharmacy, and demographics verified. Patient wishes to discharge home with resumption of HHC with [facility]. Patient states she has no further needs or concerns at this time. CM to follow for discharge planning needs that may arise. PCP: Salvador Specialists: Leann Preferred Pharmacy: [facility] Insurance: [employer] Prescription Benefit: [employer] Living Will/HPOA: Yes, son Farhat Ya HPOA LNOK: Son, daughter in law, sister Living Arrangements: Patient lives with sister, son, and daughter in law in 1 story home. Patient is independent for self care. Transportation: Family DME/HHC: Patient has shower chair, BSC, raised toilet seat, cane, walker, rollator, wheelchair at home. Patient is current with [facility] for SN, PT, and OT Disposition Plan: Patient to discharge home with resumption of HHC, family support, and follow-up plans in place. Digna MOSELEYN, RN, CM
[2017-12-17] MEDS: Rivaroxaban 15 MG Tablet PO (12:28)
[2017-12-17 13:21] LABS: Bedside Glucose 116 mg/dL (70-110)
--- NOTE | 2017-12-17 13:21 | PCM.HP.ID ---
Problem List (1) Left leg cellulitis Status: Acute Reason for Consult: cellulitis Consulted by: Dr. Hubbard History of Present Illness: The patient is a 72 year old F with h/o BLE infection who presented to ED 12/16 with 2 days of LLE redness, pain, swelling, no drainage. No fever or chills. Sees wound care for R foot wound, now healed. Recently had course of abx for infection in that foot with doxy/keflex then ceftriaxone reportedly from Dr. Franco. LLE started hurting, no known trauma to the area. Came to ED 12/15, sent out on po doxy, sx worsened, returned. Now admitted on vanc/zosyn, feeling slightly better. Full ROS performed and neg except as noted above. - Medical History Past Medical History (Chronic Problems): Chronic Problems (Last Updated 12/16/17 @ 09:33 by Douglas Bowman DO) PVD (peripheral vascular disease) (Chronic) Controlled diabetes mellitus (Chronic) Edema, lower extremity (Chronic) Presence of stent in coronary artery (Chronic) PTCA/stent to CX; PTCA/Stent PTCA/stent to prox RCA 05/06; PTCA/LILY in mid to distal RCA 08/29/12 Atherosclerotic heart disease of [place] coronary artery without angina pectoris (Chronic) PTCA/stent to CX; PTCA/Stent PTCA/stent to prox RCA 05/06; PTCA/LILY in mid to distal RCA 08/29/12; CABG x2 ARREGUIN tp LAD and SVG to OM2 01/02/11 S/P CABG (coronary artery bypass graft) (Chronic ~01/02/11) CABG x2 ARREGUIN tp LAD and SVG to OM2 01/02/11 Paroxysmal atrial fibrillation (Chronic) Hyperlipidemia (Chronic) Hypertension (Chronic) Allergies/Adverse Reactions: Allergies ciprofloxacin [From Cipro] Allergy (Verified 12/16/17 03:15) Hives ciprofloxacin HCl [From Cipro] Allergy (Verified 12/16/17 03:15) Hives Latex, Natural Rubber Allergy (Verified 12/16/17 03:15) Rash Penicillins [PCN] Allergy (Verified 12/16/17 03:15) Hives codeine Adverse Reaction (Unknown, Verified 12/16/17 03:15) Unknown adhesive tape Adverse Reaction (Verified 12/16/17 03:15) Rash Home Medications: Ambulatory Orders Medication Instructions Recorded Docusate Sodium [Colace] 100 mg PO DAILY PRN 05/10/17 Magnesium Oxide 400 mg PO BID 05/10/17 Pantoprazole Sodium [Protonix] 40 mg PO DAILY 05/10/17 Rivaroxaban [Xarelto] 15 mg PO DAILY 05/10/17 metoprolol tartrate 50 mg tablet 50 mg PO BID #180 tab 09/18/17 amiodarone 200 mg tablet 200 mg PO DAILY #90 tab 10/10/17 Duloxetine HCl 60 mg PO DAILY 10/24/17 furosemide 40 mg tablet 40 mg PO BID tab 10/25/17 Acetaminophen [Tylenol Tablet] 1,000 mg PO Q8 tablet 10/27/17 Gabapentin [Neurontin] 800 mg PO BID 3 Days #6 tab 10/27/17 Glucerna Shake 120 ml PO 4X/DAY liquid 10/27/17 Ferrous Sulfate 325 mg PO DAILY@0800 11/22/17 Potassium Chloride [Klor-Con] 20 meq PO BID 11/22/17 Doxycycline Monohydrate 100 mg PO BID #20 cap 12/15/17 - Social History SMOKING STATUS:: Former smoker Vital Signs Temp Pulse Resp BP Pulse Ox 98.6 F 78 18 128/72 H 94 12/17/17 08:32 12/17/17 11:03 12/17/17 08:32 12/17/17 11:03 12/17/17 08:32 Oxygen Delivery Method Room Air Weight: 98 kg Body Mass Index (BMI) 42.2 Finger Stick Blood Glucose 187 Laboratory Tests Past 24 Hrs 12/16/17 12/16/17 12/16/17 11:00 14:00 16:20 WBC RBC Hgb Hct MCV MCH MCHC RDW RDW Differential Plt Count MPV Immature Gran % (Auto) Neut % (Auto) Lymph % (Auto) [place] % (Auto) Eos % (Auto) Baso % (Auto) Absolute Neuts (auto) Absolute Lymphs (auto) Total Counted Differential Comment Hypochromasia Anisocytosis Microcytosis Ovalocytes Sodium Potassium Chloride Carbon Dioxide Anion Gap BUN Creatinine Estim Creat Clear Calc Est GFR (MDRD) Af Amer Est GFR (MDRD) Non-Af BUN/Creatinine Ratio Glucose Lactic Acid 1.1 Calcium Urine Color Yellow Urine Clarity Clear Urine pH 5.0 Ur Specific [place] 1.015 Urine Protein 15 H Urine Glucose (UA) Normal Urine Ketones Negative Urine Occult Blood Negative Urine Nitrite Negative Urine Bilirubin Negative Urine Urobilinogen Normal Ur Leukocyte Esterase 25 H Urine RBC 0 SEEN Urine WBC 0-5 SEEN Ur Squamous Epith Cells 0-5 SEEN Urine Bacteria 0 SEEN Urine Mucus 0 SEEN MRSA (PCR) Negative 12/17/17 12/17/17 05:36 05:36 WBC 12.2 H RBC 3.73 L Hgb 8.2 L Hct 31.5 L MCV 84.5 MCH 22.0 L MCHC 26.0 L RDW 21.1 H RDW Differential 65.4 H Plt Count 178 MPV 9.9 Immature Gran % (Auto) 0.200 Neut % (Auto) 83.0 H Lymph % (Auto) 8.7 L [place] % (Auto) 7.1 Eos % (Auto) 0.8 Baso % (Auto) 0.2 Absolute Neuts (auto) 10.2 H Absolute Lymphs (auto) 1.07 Total Counted Not Reportable Differential Comment SCANNED Hypochromasia 1+ Anisocytosis 3+ Microcytosis 2+ Ovalocytes 1+ Sodium 142 Potassium 4.3 Chloride 111 H Carbon Dioxide 23.0 Anion Gap 8 BUN 26 H Creatinine 1.52 H Estim Creat Clear Calc 23.68 Est GFR (MDRD) Af Amer 43 L Est GFR (MDRD) Non-Af 36 L BUN/Creatinine Ratio 17.1 Glucose 107 H Lactic Acid Calcium 8.5 Urine Color Urine Clarity Urine pH Ur Specific [place] Urine Protein Urine Glucose (UA) Urine Ketones Urine Occult Blood Urine Nitrite Urine Bilirubin Urine Urobilinogen Ur Leukocyte Esterase Urine RBC Urine WBC Ur Squamous Epith Cells Urine Bacteria Urine Mucus MRSA (PCR) - Other Studies Radiology: [] reviewed Other Studies: [] Route of nutrition/ use of supplements: [] Nutritional Intake: [] IV Site: [] [place] Catheter: [] - Physical Exam General: Alert, Oriented x3, Cooperative, No apparent distress HEENT: Atraumatic, PERRLA, EOMI Neck: Supple, No Nodes Lungs: Clear to auscultation, Normal air movement Cardiovascular: Regular rate, Regular Rhythm Abdomen: Soft, Non Tender, Non-Distended Extremities: Edema Skin: - - LLE from foot to upper cabrera with redness, swelling, mild pain/warmth. IV Site: Peripheral, without redness Musculoskeletal: No Tenderness to Palpation of Joints or Extremities Neurological: Cranial nerves II-XII grossly intact - Assessment/Plan Antibiotics: [] Assessment/Plan: [] Active and Suspected Problems (Last Updated 12/16/17 @ 09:33 by Douglas Bowman DO) Left leg cellulitis (Acute) Associated with leukocytosis and lactic acidosis. Will narrow abx to cefazolin. No purulence seen. Prior wound cx of R foot with pseudomonas, CoNS, and ecoli, but that site is now well healed. CKD - at baseline Will follow thank you.
--- NOTE | 2017-12-17 14:59 | CHAPLAIN ---
Type of Pastoral Visit _x__ Initial Visit ___ Follow-up Visit ___ On-call Visit ___ General Patient Visit ___ Spiritual Assessment ___ Family Conference ___ Bereavement ___ Rapid Response ___ Code Blue ___ Other (describe below) Pastoral Care Referral From _x__ Patient ___ Family ___ Nurse ___ Physician ___ Furniture Inspector ___ [place] Assembler ___ Other (describe below) Sacrament/Intervention _x__ Active listening ___ Anointing ___ Latter Day ___ Bereavement ___ Communion _x__ Aminah exploration ___ _x__ Life review _x__ Prayer ___ Reconciliation ___ Sacrament of Sick _x__ Supportive presence ___ Wedding ___ Other (describe below) Pastoral Comments patient describes her illness and recent difficulties; pt mentions the bad year of 2016 when she experienced three significant deaths; pt speaks of her aminah as being very important and where she finds hope; pt has family living with her and next door to her; pt says this is a blessing to her; pt requested prayers be given for her; pt is member of [employer]
--- NOTE | 2017-12-17 15:05 | CASEMGMT ---
Social Work Note SW reviewed pt's chart. No advanced directives on file for pt. SW met with pt. SW introduced self and role at [facility]. Pt confirms that she has completed advanced directives and her daughter in law will be able to bring in a copy. Digna Palumbo WATCH ENGINEER, HYDROMETER TESTER
[2017-12-17] MEDS: Cefazolin 1 GM/50 ML BAG IV ×2 (15:10→21:17)
--- NOTE | 2017-12-17 15:59 | NURSING ---
wound photo: left lower leg
--- NOTE | 2017-12-17 16:00 | NURSING ---
wound photo: left lateral lower leg
[2017-12-17 16:01] VITALS: BP 137/65; PULSE 64; RESP 16; TEMP 36.4; O2SAT 94
[2017-12-17 16:31] LABS: Bedside Glucose 142 mg/dL (70-110)
[2017-12-17 20:03] VITALS: BP 144/58; PULSE 61; RESP 16; TEMP 36.6; O2SAT 93
--- NOTE | 2017-12-17 20:08 | PN_ITS ---
Patient Problems: Active and Suspected Problems (Last Updated 12/16/17 @ 09:33 by Douglas Bowman DO) Left leg cellulitis (Acute) Subjective: Patient was seen and examined today, I did not unwrap the patient's dressings over her lower legs today for examination of her cellulitis. She was seen in consultation by infectious diseases today who narrowed antibiotics Bactrim. Patient's white blood cell count today was 12.2, hemoglobin was 8.2. Patient has had complaints of pain from trigeminal neuralgia on the right side of her face today, I increased the patient's gabapentin today to 800 mg 3 times a day. Patient is also receiving oral narcotics for pain. - Physical Exam General: Alert, Oriented x3, Cooperative, Well developed HEENT: Atraumatic, PERRLA, EOMI, Normocephalic Oral: Moist Mucosa Neck: Supple, No Nuchal Rigidity, Trachea Midline, Thyroid Normal Size and Texture Lungs: Clear to auscultation, Normal air movement, No rhonchi, No wheeze, No rales Cardiovascular: Regular rate, Regular Rhythm, Normal S1, Normal S2, No murmurs, No Ectopic Activity Abdomen: Bowel Sounds Present, Soft, Non Tender, Non-Distended, Obese Extremities: No cyanosis Neurological: Cranial nerves II-XII grossly intact, Neuro grossly intact, Sensory exam intact to light touch and pain, Coordination normal Psych/Mental Status: Normal Affect, Appropriate, Alert and oriented to time, place, person, mood and affect Vital Signs Temp Pulse Resp BP Pulse Ox 97.9 F 61 16 144/58 H 93 12/17/17 20:03 12/17/17 20:03 12/17/17 20:03 12/17/17 20:03 12/17/17 20:03 Oxygen Delivery Method Room Air Weight: 98 kg Body Mass Index (BMI) 42.2 Finger Stick Blood Glucose 187 Intake and Output for Last 24 Hours 12/15/17 12/16/17 12/17/17 23:59 23:59 23:59 Intake Total 1813 / 1813 1094 / 1094 Output Total 300 / 300 Balance 1813 / 1813 794 / 794 Laboratory Tests Past 24 Hrs 12/17/17 12/17/17 05:36 05:36 WBC 12.2 H RBC 3.73 L Hgb 8.2 L Hct 31.5 L MCV 84.5 MCH 22.0 L MCHC 26.0 L RDW 21.1 H RDW Differential 65.4 H Plt Count 178 MPV 9.9 Immature Gran % (Auto) 0.200 Neut % (Auto) 83.0 H Lymph % (Auto) 8.7 L [place] % (Auto) 7.1 Eos % (Auto) 0.8 Baso % (Auto) 0.2 Absolute Neuts (auto) 10.2 H Absolute Lymphs (auto) 1.07 Total Counted Not Reportable Differential Comment SCANNED Hypochromasia 1+ Anisocytosis 3+ Microcytosis 2+ Ovalocytes 1+ Sodium 142 Potassium 4.3 Chloride 111 H Carbon Dioxide 23.0 Anion Gap 8 BUN 26 H Creatinine 1.52 H Estim Creat Clear Calc 23.68 Est GFR (MDRD) Af Amer 43 L Est GFR (MDRD) Non-Af 36 L BUN/Creatinine Ratio 17.1 Glucose 107 H Calcium 8.5 POC Glucose 12/17/17 12/17/17 12/17/17 16:11 12:23 06:47 POC Glucose 142 H 116 H 118 H 12/16/17 21:12 POC Glucose 136 H Medical Necessity - Tobacco Use Smoking Status: Former smoker Assessment/Plan All Active Problems (Last Updated 12/16/17 @ 09:33 by Douglas Bowman DO) Encephalopathy (Resolved) Left leg cellulitis (Acute) #1 left leg cellulitis-patient will continue on IV Ancef. #2 metabolic encephalopathy secondary to cellulitis-patient is alert and appropriate to this examiner today #3 chronic kidney disease stage III secondary to hypertension #4 coronary artery disease #5 paroxysmal atrial fibrillation #6 hypertension #7 lymphedema #8 acute on chronic trigeminal neuralgia-patient's gabapentin will be increased to 800 mg 3 times a day, she will remain on narcotic pain medications Code Visit Inpatient E&M: 54072 Subs Hosp L2
[2017-12-17 21:16] VITALS: PULSE 68
[2017-12-17 22:11] LABS: Bedside Glucose 130 mg/dL (70-110)
[2017-12-18] VITALS (7 sets, daily range): BP systolic 137–179; BP diastolic 63–72; PULSE 56–69; RESP 18; TEMP 36.4–36.8; O2SAT 93–94
[2017-12-18] MEDS: oxyCODONE 5 MG Tablet PO (02:14)
[2017-12-18] MEDS: Gabapentin 800 MG Tablet PO ×3 (05:16→21:19)
[2017-12-18] MEDS: Cefazolin 1 GM/50 ML BAG IV ×3 (05:16→21:19)
[2017-12-18 07:20] LABS: Bedside Glucose 113 mg/dL (70-110)
[2017-12-18] MEDS: Ferrous Sulfate 325 MG Tablet PO (08:02)
[2017-12-18] MEDS: Metoprolol Tartrate 50 MG Tablet PO ×2 (08:02→21:19)
[2017-12-18] MEDS: Amiodarone 200 MG Tablet PO (08:04)
[2017-12-18] MEDS: DULoxetine Hcl 60 MG Capsule PO (08:04)
[2017-12-18] MEDS: Acetaminophen 325 MG Tablet 650 MG PO (08:09)
[2017-12-18] MEDS: Rivaroxaban 15 MG Tablet PO (10:26)
[2017-12-18] MEDS: Magnesium Oxide 400 MG Tablet PO ×2 (10:26→21:19)
--- NOTE | 2017-12-18 10:29 | PCM.PN.ID ---
Patient Problems: Active and Suspected Problems (Last Updated 12/16/17 @ 09:33 by Douglas Bowman DO) Left leg cellulitis (Acute) Subjective: Feeling better, leg less sore, no fever, no n/v/d. - Physical Exam General: Alert, Cooperative, No apparent distress Lungs: Clear to auscultation, Normal air movement Cardiovascular: Regular rate, Regular Rhythm Abdomen: Soft, Non Tender, Non-Distended Extremities: Edema Skin: Rash Present - L cabrera still red Vital Signs Temp Pulse Resp BP Pulse Ox 98.3 F 57 L 18 160/63 H 94 12/18/17 10:23 12/18/17 10:23 12/18/17 10:23 12/18/17 10:23 12/18/17 10:23 Oxygen Delivery Method Room Air Weight: 98 kg Body Mass Index (BMI) 42.2 Finger Stick Blood Glucose 187 Intake and Output for Last 24 Hours 12/16/17 12/17/17 12/18/17 23:59 23:59 23:59 Intake Total 1813 / 1813 1269 / 1269 138 / 138 Output Total 300 / 300 Balance 1813 / 1813 969 / 969 138 / 138 Microbiology Past 72 Hours 12/16/17 11:00 Urine Culture - Preliminary Urine, Clean Catch Gram Positive Cocci POC Glucose 12/18/17 12/17/17 12/17/17 07:01 21:14 16:11 POC Glucose 113 H 130 H 142 H 12/17/17 12:23 POC Glucose 116 H Medical Necessity - Tobacco Use Smoking Status: Former smoker Route of nutrition/ use of supplements: [] Nutritional Intake: [] IV Site: [] [place] Catheter: [] - Assessment/Plan Antibiotics: [] Assessment/Plan: [] Active and Suspected Problems (Last Updated 12/16/17 @ 09:33 by Douglas Bowman DO) Left leg cellulitis (Acute) Associated with leukocytosis and lactic acidosis. Leg improved on cefazolin. Plan on d/c home today or tomorrow on po keflex 500mg tid for 6 more days. CKD - at baseline Will follow, d/w primary team
--- NOTE | 2017-12-18 10:58 | PCM.PROGNOTE ---
Patient Problems: Active and Suspected Problems (Last Updated 12/16/17 @ 09:33 by Douglas Bowman DO) Left leg cellulitis (Acute) Subjective: Patient seen and examined today, she is still complaining of severe pain from her trigeminal neuralgia. I have decided to place the patient on low-dose Tegretol-there is a chance for interaction between her amiodarone and Xarelto however. I talked to infectious diseases about her today and they feel that she requires 1 more day of IV antibiotic treatment for her cellulitis. - Physical Exam General: Alert, Oriented x3, Cooperative, No apparent distress, Well developed, Well nourished HEENT: Atraumatic, PERRLA, EOMI, Normocephalic Oral: Moist Mucosa Neck: Supple, No Nuchal Rigidity, Trachea Midline, Thyroid Normal Size and Texture Lungs: Clear to auscultation, Normal air movement, No rhonchi, No wheeze, No rales Cardiovascular: Regular rate, Regular Rhythm, Normal S1, Normal S2, No murmurs, No Ectopic Activity Abdomen: Bowel Sounds Present, Soft, Non Tender, Non-Distended, Obese Extremities: Capillary Refill Less than 3 Seconds, - - Chronic stasis skin changes are noted over both lower extremities, there are small abrasions to the left lower leg noted with minimal serosanguineous drainage. There is also some redness of the left lower leg near the knee area, this area is also tender to palpation. Neurological: Cranial nerves II-XII grossly intact, Neuro grossly intact, Sensory exam intact to light touch and pain, Coordination normal Psych/Mental Status: Normal Affect, Appropriate, Alert and oriented to time, place, person, mood and affect Vital Signs Temp Pulse Resp BP Pulse Ox 98.3 F 57 L 18 160/63 H 94 12/18/17 10:23 12/18/17 10:23 12/18/17 10:23 12/18/17 10:23 12/18/17 10:23 Oxygen Delivery Method Room Air Weight: 98 kg Body Mass Index (BMI) 42.2 Finger Stick Blood Glucose 187 Intake and Output for Last 24 Hours 12/16/17 12/17/17 12/18/17 23:59 23:59 23:59 Intake Total 1813 / 1813 1269 / 1269 138 / 138 Output Total 300 / 300 Balance 1813 / 1813 969 / 969 138 / 138 Microbiology Past 72 Hours 12/16/17 11:00 Urine Culture - Preliminary Urine, Clean Catch Gram Positive Cocci POC Glucose 12/18/17 12/17/17 12/17/17 07:01 21:14 16:11 POC Glucose 113 H 130 H 142 H 12/17/17 12:23 POC Glucose 116 H Medical Necessity - Tobacco Use Smoking Status: Former smoker Assessment/Plan All Active Problems (Last Updated 12/16/17 @ 09:33 by Douglas Bowman DO) Encephalopathy (Resolved) Left leg cellulitis (Acute) #1 left leg cellulitis-patient will continue on IV Ancef. #2 metabolic encephalopathy secondary to cellulitis-patient remains alert and appropriate to this examiner today #3 chronic kidney disease stage III secondary to hypertension #4 coronary artery disease #5 paroxysmal atrial fibrillation-currently in sinus rhythm #6 hypertension #7 lymphedema #8 acute on chronic trigeminal neuralgia-patient was placed on Tegretol 100 mg twice daily, she will remain on her Neurontin Code Visit Inpatient E&M: 84280 Subs Hosp L2
[2017-12-18 11:40] LABS: Bedside Glucose 112 mg/dL (70-110)
[2017-12-18] MEDS: carBAMazepine 200 MG Tablet 100 MG PO ×2 (12:35→17:10)
[2017-12-18 17:26] LABS: Bedside Glucose 126 mg/dL (70-110)
[2017-12-18] MEDS: Glucerna Shake 120 ML LIQUID PO (21:21)
[2017-12-18 23:06] LABS: Bedside Glucose 129 mg/dL (70-110)
[2017-12-19] VITALS (11 sets, daily range): BP systolic 174–201; BP diastolic 75–95; PULSE 59–95; RESP 18; TEMP 36.6–37.2; O2SAT 94–100
[2017-12-19] MEDS: hydrALAZINE 20 MG/ML Vial 10 MG IV ×3 (05:00→17:15)
[2017-12-19] MEDS: Gabapentin 800 MG Tablet PO ×3 (05:02→22:51)
[2017-12-19] MEDS: Cefazolin 1 GM/50 ML BAG IV (05:02)
[2017-12-19] MEDS: 0.9% NaCl Peripheral Flush Adult/Peds IV ×2 (05:04→11:16)
[2017-12-19] MEDS: oxyCODONE 5 MG Tablet PO (05:18)
[2017-12-19 06:56] LABS: Bedside Glucose 107 mg/dL (70-110)
[2017-12-19] MEDS: Magnesium Oxide 400 MG Tablet PO ×2 (08:11→22:51)
[2017-12-19] MEDS: Acetaminophen 325 MG Tablet 650 MG PO ×2 (08:11→15:14)
[2017-12-19] MEDS: DULoxetine Hcl 60 MG Capsule PO (08:11)
[2017-12-19] MEDS: Ferrous Sulfate 325 MG Tablet PO (08:11)
[2017-12-19] MEDS: Amiodarone 200 MG Tablet PO (08:12)
[2017-12-19] MEDS: Metoprolol Tartrate 50 MG Tablet PO ×2 (08:12→22:51)
[2017-12-19] MEDS: Rivaroxaban 15 MG Tablet PO (11:16)
[2017-12-19] MEDS: carBAMazepine 200 MG Tablet 100 MG PO ×2 (11:16→17:13)
[2017-12-19 12:05] LABS: Bedside Glucose 127 mg/dL (70-110)
--- NOTE | 2017-12-19 12:21 | PCM.PN.ID ---
Subjective: No fever, still with jaw pain. - Physical Exam General: Cooperative, No apparent distress Lungs: Clear to auscultation, Normal air movement Cardiovascular: Regular rate, Regular Rhythm Abdomen: Soft, Non Tender, Non-Distended Skin: Rash Present - improved on LLE Vital Signs Temp Pulse Resp BP Pulse Ox 98.6 F 61 18 185/81 H 94 12/19/17 11:06 12/19/17 11:14 12/19/17 11:06 12/19/17 11:14 12/19/17 11:06 Oxygen Delivery Method Room Air Weight: 98 kg Body Mass Index (BMI) 42.2 Finger Stick Blood Glucose 187 Intake and Output for Last 24 Hours 12/17/17 12/18/17 12/19/17 23:59 23:59 23:59 Intake Total 1269 / 1269 954 / 954 640 / 640 Output Total 300 / 300 150 / 150 Balance 969 / 969 804 / 804 640 / 640 Microbiology Past 72 Hours 12/16/17 11:00 Urine Culture - Final Urine, Clean Catch Mixed Gram Positive Organisms 12/16/17 05:15 Blood Culture - Preliminary Blood Culture (Wb) - Left Forearm No growth in 48 hours. 12/16/17 05:10 Blood Culture - Preliminary Blood Culture (Wb) - Right Hand No growth in 48 hours. POC Glucose 12/19/17 12/19/17 12/18/17:18 06:43 21:12 POC Glucose 127 H 107 129 H 12/18/17 17:07 POC Glucose 126 H Medical Necessity - Tobacco Use Smoking Status: Former smoker Route of nutrition/ use of supplements: [] Nutritional Intake: [] IV Site: [] [place] Catheter: [] - Assessment/Plan Antibiotics: [] Assessment/Plan: [] Active and Suspected Problems (Last Updated 12/16/17 @ 09:33 by Douglas Bowman DO) Left leg cellulitis (Acute) Associated with leukocytosis and lactic acidosis. Leg improved on cefazolin. Will change cefazolin to keflex 500mg tid for 6 more days. CKD - at baseline Will follow, d/w primary team
[2017-12-19] MEDS: NYSTATIN 500,000 UNIT/5 ML UDC 250000 UNIT PO ×3 (14:21→22:52)
[2017-12-19] MEDS: Glucerna Shake 120 ML LIQUID PO (14:21)
[2017-12-19] MEDS: Cephalexin 250 MG Capsule PO ×2 (14:23→22:51)
[2017-12-19 16:41] LABS: Bedside Glucose 155 mg/dL (70-110)
[2017-12-19] MEDS: Insulin Lispro 100 UNIT/ML INSULN.PEN SQ ×2 (17:14→22:52)
--- NOTE | 2017-12-19 20:21 | PCM.PROGNOTE ---
Subjective: Patient was seen and examined today, she states that she has severe facial pain, I have increased her Tegretol today and also placed her on IV Decadron. I talked briefly with pain management today who states that they will not inject her face because she had a recent injection 2 weeks ago. I will continue the patient on present antibiotics per ID, and reevaluate patient tomorrow. - Physical Exam General: Alert, Oriented x3, Cooperative, No apparent distress, Well developed, Well nourished HEENT: Atraumatic, PERRLA, EOMI, Normocephalic Oral: Moist Mucosa Neck: Supple, No Nuchal Rigidity, Trachea Midline, Thyroid Normal Size and Texture Lungs: Clear to auscultation, Normal air movement, No rhonchi, No wheeze, No rales Cardiovascular: Regular rate, Regular Rhythm, Normal S1, Normal S2, No murmurs, No Ectopic Activity Abdomen: Bowel Sounds Present, Soft, Non Tender, Non-Distended Skin: No rashes, No breakdown Musculoskeletal: No Tenderness to Palpation of Joints or Extremities Neurological: Cranial nerves II-XII grossly intact, Neuro grossly intact, Sensory exam intact to light touch and pain, Coordination normal Psych/Mental Status: Normal Affect, Appropriate, Alert and oriented to time, place, person, mood and affect Vital Signs Temp Pulse Resp BP Pulse Ox 97.9 F 95 18 174/95 H 95 12/19/17 17:00 12/19/17 17:15 12/19/17 17:00 12/19/17 17:15 12/19/17 17:00 Oxygen Delivery Method Room Air Weight: 98 kg Body Mass Index (BMI) 42.2 Finger Stick Blood Glucose 187 Intake and Output for Last 24 Hours 12/17/17 12/18/17 12/19/17 23:59 23:59 23:59 Intake Total 1269 / 1269 954 / 954 640 / 640 Output Total 300 / 300 150 / 150 Balance 969 / 969 804 / 804 640 / 640 Microbiology Past 72 Hours 12/16/17 11:00 Urine Culture - Final Urine, Clean Catch Mixed Gram Positive Organisms 12/16/17 05:15 Blood Culture - Preliminary Blood Culture (Wb) - Left Forearm No growth in 48 hours. 12/16/17 05:10 Blood Culture - Preliminary Blood Culture (Wb) - Right Hand No growth in 48 hours. POC Glucose 12/19/17 12/19/17 12/19/17 16:32 11:18 06:43 POC Glucose 155 H 127 H 107 12/18/17 21:12 POC Glucose 129 H Medical Necessity - Tobacco Use Smoking Status: Former smoker Assessment/Plan All Active Problems (Last Updated 12/16/17 @ 09:33 by Douglas Bowman DO) Encephalopathy (Resolved) Left leg cellulitis (Acute) #1 left leg cellulitis-patient will continue on IV Ancef. #2 metabolic encephalopathy secondary to cellulitis-patient remains alert and appropriate to this examiner #3 chronic kidney disease stage III secondary to hypertension #4 coronary artery disease #5 paroxysmal atrial fibrillation-currently in sinus rhythm #6 hypertension #7 lymphedema #8 acute on chronic trigeminal neuralgia-patient's Tegretol was increased today, I placed the patient on IV Decadron Code Visit Inpatient E&M: 92263 Subs Hosp L2
[2017-12-19 23:21] LABS: Bedside Glucose 164 mg/dL (70-110)
[2017-12-20] VITALS (10 sets, daily range): BP systolic 146–186; BP diastolic 56–79; PULSE 62–74; RESP 16–18; TEMP 36.6–37.2; O2SAT 95–99
[2017-12-20] MEDS: hydrALAZINE 20 MG/ML Vial 10 MG IV ×2 (00:54→15:20)
[2017-12-20] MEDS: Acetaminophen 325 MG Tablet 650 MG PO (04:25)
[2017-12-20] MEDS: Gabapentin 800 MG Tablet PO (05:17)
[2017-12-20] MEDS: Cephalexin 250 MG Capsule PO ×3 (05:17→22:53)
[2017-12-20] MEDS: Insulin Lispro 100 UNIT/ML INSULN.PEN SQ ×4 (06:52→22:53)
[2017-12-20 07:05] LABS: Bedside Glucose 173 mg/dL (70-110)
[2017-12-20] MEDS: DULoxetine Hcl 60 MG Capsule PO (09:12)
[2017-12-20] MEDS: Metoprolol Tartrate 50 MG Tablet PO ×2 (09:12→22:53)
[2017-12-20] MEDS: Magnesium Oxide 400 MG Tablet PO ×2 (09:12→22:55)
[2017-12-20] MEDS: Amiodarone 200 MG Tablet PO (09:13)
[2017-12-20] MEDS: Ferrous Sulfate 325 MG Tablet PO (09:13)
[2017-12-20] MEDS: NYSTATIN 500,000 UNIT/5 ML UDC 250000 UNIT PO ×4 (09:13→22:56)
[2017-12-20] MEDS: Rivaroxaban 15 MG Tablet PO (09:14)
--- NOTE | 2017-12-20 10:36 | CASEMGMT ---
Social Work Note RN Valarie updated this worker that pt's son had concerns with pt going home with no help. SW met with pt. Pt is alert and orientated, has some confusion but was able to answer questions appropriately. Pt states that she feels safe returning home with HHC. SW informed pt that pt's HHC through [facility] will be resumed and pt will be receiving PT,OT, and residential. Pt states understanding. Plan: Pt to resume home with HHC through [facility] with PT, OT, and residential. Digna Palumbo [employer], [employer]
--- NOTE | 2017-12-20 10:38 | PCM.PN.ID ---
Subjective: Feeling better, leg not bothering her, jaw better, no fever - Physical Exam General: Cooperative, No apparent distress Lungs: Clear to auscultation, Normal air movement Cardiovascular: Regular rate, Regular Rhythm Abdomen: Soft, Non Tender, Non-Distended Extremities: Edema Skin: Rash Present - redness much improved Vital Signs Temp Pulse Resp BP Pulse Ox 98.9 F 67 18 146/56 H 97 12/20/17 08:32 12/20/17 09:12 12/20/17 08:32 12/20/17 08:32 12/20/17 08:32 Oxygen Delivery Method Room Air Weight: 98 kg Body Mass Index (BMI) 42.2 Finger Stick Blood Glucose 187 Intake and Output for Last 24 Hours 12/18/17 12/19/17 12/20/17 23:59 23:59 23:59 Intake Total 954 / 954 940 / 940 100 / 100 Output Total 150 / 150 300 / 300 Balance 804 / 804 640 / 640 100 / 100 Microbiology Past 72 Hours 12/16/17 11:00 Urine Culture - Final Urine, Clean Catch Mixed Gram Positive Organisms 12/16/17 05:15 Blood Culture - Preliminary Blood Culture (Wb) - Left Forearm No growth in 48 hours. 12/16/17 05:10 Blood Culture - Preliminary Blood Culture (Wb) - Right Hand No growth in 48 hours. POC Glucose 12/20/17 12/19/17 12/19/17 06:45 22:41 16:32 POC Glucose 173 H 164 H 155 H 12/19/17 11:18 POC Glucose 127 H Medical Necessity - Tobacco Use Smoking Status: Former smoker Route of nutrition/ use of supplements: [] Nutritional Intake: [] IV Site: [] [place] Catheter: [] - Assessment/Plan Antibiotics: [] Assessment/Plan: [] Active and Suspected Problems (Last Updated 12/16/17 @ 09:33 by Douglas Bowmna DO) Left leg cellulitis (Acute) Associated with leukocytosis and lactic acidosis. Leg improved, continue keflex 250mg tid for 5 more days. CKD - at baseline Will follow, d/w primary team
[2017-12-20 12:21] LABS: Bedside Glucose 183 mg/dL (70-110)
[2017-12-20] MEDS: 0.9% NaCl Peripheral Flush Adult/Peds IV ×3 (12:21→17:55)
[2017-12-20] MEDS: Glucerna Shake 120 ML LIQUID PO ×2 (12:21→22:56)
--- NOTE | 2017-12-20 13:35 | MRI_ITS ---
STUDY: MRI BRAIN WITHOUT CONTRAST REASON FOR EXAM: Female, 72 years old. Aaphasia following fall TECHNIQUE: Standardized multiplanar fat and water weighted pulse sequences were obtained. COMPARISON: September 11, 2015. FINDINGS: Advanced atrophy and periventricular white matter ischemic changes without mass effect or restricted diffusion... Normal bilateral basal ganglia. Normal thalami. There is no extra-axial fluid accumulation. Normal flow voids within the major intracranial circulation suggesting patency by spin echo criteria. Normal sella turcica, pituitary gland, infundibular stalk, optic chiasm and hypothalamus. Normal tectal plate and pineal gland. Normal midbrain, ammon and medulla. Normal cerebellum. Normal basal cisterns. Normal bilateral temporal bones. Normal bilateral internal auditory canals. There are postsurgical changes of the orbits.. There is small mucous retention cyst within the maxillary sinuses and sphenoid sinus.. Normal calvarium and skull base. Normal visualized soft tissue structures. Normal visualized upper cervical spine. No significant changes since prior exam MRI/Brain without Contrast IMPRESSION: Severe atrophy and periventricular white matter ischemic change without evidence for acute infarct Electronically Signed: Ryan Roman MD at 16:09 EST , Service support ,
--- NOTE | 2017-12-20 14:00 | NURSING ---
ASKED PT WHAT FAMILY MEMBER SHE WOULD LIKE ME TO CALL PT STATES SHE TOLD HER FAMILY SHE WAS BEING DISCHARGED. PT INSTRUCTED SAID NURSE TO PHONE BISHOP HER DAUGHTER IN LAW. SAID NURSE PHONED BISHOP- UPDATED BISHOP ON SERIES OF EVENTS THIS MORNING AND AFTERNOON WITH APHASIA, SPEECH. BISHOP STATES SHE THOUGHT WHEN SHE THE GROUP HOME SHE MAY HAVE HAD A STROKE THEN, SHE GOT UP TO WALK AND DIDNT USE HER WALKER, SHE FELL AND HIT HER HEAD ON THE FLOOR. SHE WAS TAKEN TO THE HOSPITAL AND OBSERVED AND THEY DIDN'T THINK SHE HAD ANY BLEEDING. EVER SINCE THAT TIME, SHE WILL HAVE DAYS WHEN HER SPEECH IS FINE AND OTHER DAYS WHERE SHE HAS TROUBLE EXPRESSING HERSELF. FOR EXAMPLE INSTEAD OF SAYING PLAYGROUND WHEN SHE IS TALKING, SHE WILL GET MIXED UP IN HER THOUGHTS AND SAY YOU KNOW, YOU THAT PLACE, WHERE KIDS PLAY. SO SOME DAYS ARE GOOD AND SOME DAYS ARE NOT, BUT IT HAS BEEN THAT WAY SINCE SHE FELL. UPDATED ON NEW ORDERS. BISHOP STATES THAT SHE WILL NOTIFY THE REST OF PT FAMILY.
[2017-12-20 16:51] LABS: Bedside Glucose 157 mg/dL (70-110)
[2017-12-20] MEDS: Gabapentin 600 MG Tablet PO (17:56)
--- NOTE | 2017-12-20 19:07 | PCM.PROGNOTE ---
Subjective: Patient was seen and examined today, nursing had concerns that the patient was having some a fascia and I ordered an MRI of the brain which did not show any evidence of acute stroke. Patient does have problems with fluency of her words, I talked with her son who is in the room tonight and he stated that she has some problems with that at home but it is worse since she has been in the hospital here. He expresses concern that she will not be safe if she returns home without supervision and he cannot provide this as he works and his works also. Patient has an elderly relative at home with her but he does not feel that she would keep a close eye on his mother. Speech therapy saw the patient today, they are not sure what is causing her speech problem and they do not think it is related to her MS. Patient has had a diagnosis of MS for several years and is seeing . Patient will be seen by PT and OT tomorrow, I have stopped her Tegretol and reduced her gabapentin, I will continue the IV Decadron, she states her trigeminal neuralgia pain is less today. - Physical Exam General: Alert, Oriented x3, Cooperative, No apparent distress, Well developed HEENT: Atraumatic, PERRLA, Normocephalic Oral: Moist Mucosa Neck: Supple, No Nuchal Rigidity, Trachea Midline, Thyroid Normal Size and Texture Lungs: Clear to auscultation, Normal air movement, No rhonchi, No wheeze, No rales Cardiovascular: Regular rate, Regular Rhythm, Normal S1, Normal S2, No murmurs, No Ectopic Activity Abdomen: Bowel Sounds Present, Soft, Non Tender, Non-Distended, Obese Extremities: No clubbing, No cyanosis, Edema - Mild nonpitting edema is noted over both lower legs Skin: - - stasis dermatitis changes noted over both lower legs Neurological: Cranial nerves II-XII grossly intact, Neuro grossly intact, - - Patient has halting speech at times, she also cannot come up with words at times when she is talking Psych/Mental Status: Normal Affect, Appropriate, Alert and oriented to time, place, person, mood and affect Vital Signs Temp Pulse Resp BP Pulse Ox 98.5 F 62 18 174/78 H 95 12/20/17 15:15 12/20/17 15:20 12/20/17 15:15 12/20/17 15:20 12/20/17 15:15 Oxygen Delivery Method Room Air Weight: 98 kg Body Mass Index (BMI) 42.2 Finger Stick Blood Glucose 187 Intake and Output for Last 24 Hours 12/18/17 12/19/17 12/20/17 23:59 23:59 23:59 Intake Total 954 / 954 940 / 940 460 / 460 Output Total 150 / 150 300 / 300 Balance 804 / 804 640 / 640 460 / 460 Microbiology Past 72 Hours 12/16/17 11:00 Urine Culture - Final Urine, Clean Catch Mixed Gram Positive Organisms 12/16/17 05:15 Blood Culture - Preliminary Blood Culture (Wb) - Left Forearm No growth in 48 hours. 12/16/17 05:10 Blood Culture - Preliminary Blood Culture (Wb) - Right Hand No growth in 48 hours. POC Glucose 12/20/17 12/20/17 12/20/17 16:42 12:15 06:45 POC Glucose 157 H 183 H 173 H 12/19/17 22:41 POC Glucose 164 H Medical Necessity - Tobacco Use Smoking Status: Former smoker Assessment/Plan All Active Problems (Last Updated 12/16/17 @ 09:33 by Douglas Bowman DO) Encephalopathy (Resolved) Left leg cellulitis (Acute) #1 left leg cellulitis-patient will continue on IV Ancef. #2 metabolic encephalopathy secondary to cellulitis-patient remains alert and appropriate to this examiner #3 chronic kidney disease stage III secondary to hypertension #4 coronary artery disease #5 paroxysmal atrial fibrillation-currently in sinus rhythm #6 hypertension #7 lymphedema #8 acute on chronic trigeminal neuralgia-patient's Tegretol was stopped today, her Neurontin was decreased, she remains on the Decadron #9 debility-patient will be seen by PT and OT, again I talked with her son who she lives with and he has concerns that while he is at work and his is at work that there is no one home to help the patient, he showed me a picture of her at the kitchen table at 2:00 in the morning slumped over in her walker. Patient may need to go to a [place] [facility] [place] facility if she requires skilled care, I will have to talk with her about this, she has been against going anywhere up to this time #10 dysarthria-etiology unclear at this time, patient was seen by speech therapy, EEG will be performed #11 MS-patient sees for this, son states that the patient has been on IV steroids before but was intolerant of it, she is currently not receiving any treatment for MS Code Visit Inpatient E&M: 14193 Subs Hosp L2
[2017-12-20 23:51] LABS: Bedside Glucose 172 mg/dL (70-110)
[2017-12-21] VITALS (8 sets, daily range): BP systolic 142–171; BP diastolic 63–88; PULSE 59–68; RESP 16–18; TEMP 36.1–37.7; O2SAT 98–99
[2017-12-21] MEDS: 0.9% NaCl Peripheral Flush Adult/Peds IV ×3 (00:54→12:34)
[2017-12-21] MEDS: Cephalexin 250 MG Capsule PO ×2 (05:17→16:41)
[2017-12-21] MEDS: Metoprolol Tartrate 50 MG Tablet PO (05:17)
[2017-12-21] MEDS: Amiodarone 200 MG Tablet PO (06:29)
[2017-12-21] MEDS: Insulin Lispro 100 UNIT/ML INSULN.PEN SQ ×2 (06:29→12:14)
[2017-12-21 06:41] LABS: Bedside Glucose 175 mg/dL (70-110)
[2017-12-21] MEDS: Ferrous Sulfate 325 MG Tablet PO (10:39)
[2017-12-21] MEDS: NYSTATIN 500,000 UNIT/5 ML UDC 250000 UNIT PO ×3 (10:40→16:41)
[2017-12-21] MEDS: Magnesium Oxide 400 MG Tablet PO (10:40)
[2017-12-21] MEDS: DULoxetine Hcl 60 MG Capsule PO (10:40)
[2017-12-21] MEDS: Rivaroxaban 15 MG Tablet PO (10:41)
[2017-12-21] MEDS: Glucerna Shake 120 ML LIQUID PO ×2 (10:42→16:41)
[2017-12-21] MEDS: Gabapentin 600 MG Tablet PO ×2 (10:45→16:41)
[2017-12-21 12:21] LABS: Bedside Glucose 226 mg/dL (70-110)
--- NOTE | 2017-12-21 15:51 | CASEMGMT ---
INÉS CM updated patient and son updated regarding discharge plans. Patient to discharge home with resumption of HHC with [facility] with intermediate, PT, OT, and ST[facility] updated with potential discharge for today and updated HHC order and H and P sent. CM will continue to follow this patient and plan for a safe discharge.
[2017-12-21 17:01] LABS: Bedside Glucose 137 mg/dL (70-110)
--- NOTE | 2017-12-21 17:02 | DCINST_ITS ---
You will use the following diet at home:: No restrictions Your food should be the consistency of: Regular Your liquids should be the consistency of: Regular/Thin Discharge Activity: Return to Normal Activity Weight Bearing Status: Weight bearing as tolerated - with walker Allergies/Adverse Reactions: Allergies ciprofloxacin [From Cipro] Allergy (Verified 12/16/17 03:15) Hives ciprofloxacin HCl [From Cipro] Allergy (Verified 12/16/17 03:15) Hives Latex, Natural Rubber Allergy (Verified 12/16/17 03:15) Rash Penicillins [PCN] Allergy (Verified 12/16/17 03:15) Hives codeine Adverse Reaction (Unknown, Verified 12/16/17 03:15) Unknown adhesive tape Adverse Reaction (Verified 12/16/17 03:15) Rash Medications to take at Discharge Docusate Sodium [Colace] 100 mg PO DAILY PRN 05/10/17 Magnesium Oxide 400 mg PO BID 05/10/17 Pantoprazole Sodium [Protonix] 40 mg PO DAILY 05/10/17 Rivaroxaban [Xarelto] 15 mg PO DAILY 05/10/17 metoprolol tartrate 50 mg tablet 50 mg PO BID #180 tab 09/18/17 amiodarone 200 mg tablet 200 mg PO DAILY #90 tab 10/10/17 Duloxetine HCl 60 mg PO DAILY 10/24/17 Acetaminophen [Tylenol Tablet] 1,000 mg PO Q8 tablet 10/27/17 Glucerna Shake 120 ml PO 4X/DAY liquid 10/27/17 Ferrous Sulfate 325 mg PO DAILY@0800 11/22/17 Acetaminophen [Tylenol Tablet] 650 mg PO Q6H PRN PRN tablet 12/21/17 Cephalexin [Keflex] 250 mg PO Q8 #15 capsule 12/21/17 Furosemide 40 mg PO DAILY #1 tab 12/21/17 Gabapentin [Neurontin] 600 mg PO BIDCM #60 tablet 12/21/17 Nystatin 250,000 unit PO 4X/DAY #100 ml 12/21/17 Potassium Chloride [Klor-Con] 20 meq PO DAILY #1 packet 12/21/17 The following prescriptions were given: Cephalexin [Keflex] 250 mg PO Q8 #15 capsule Furosemide 40 mg PO DAILY #1 tab Potassium Chloride [Klor-Con] 20 meq PO DAILY #1 packet Gabapentin [Neurontin] 600 mg PO BIDCM #60 tablet Nystatin 250,000 unit PO 4X/DAY #100 ml Primary Care Physician: Octaviano Franco Chi, MD [Primary Care Provider] - Please follow up with your Primary Care Physician in: in 1-2 weeks Test Results: Test results from this visit will be discussed in further detail at your follow- up appointment, if applicable.
--- NOTE | 2017-12-23 10:14 | PCM.DC.SUM ---
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 #11 MS #12 somnolence secondary to gabapentin usage - Secondary Discharge Diagnosis Chronic Problems (Last Updated 12/16/17 @ 09:33 by Douglas Bowman DO) PVD (peripheral vascular disease) (Chronic) Controlled diabetes mellitus (Chronic) Edema, lower extremity (Chronic) Presence of stent in coronary artery (Chronic) PTCA/stent to CX; PTCA/Stent PTCA/stent to prox RCA 05/06; PTCA/LILY in mid to distal RCA 08/29/12 Atherosclerotic heart disease of [place] coronary artery without angina pectoris (Chronic) PTCA/stent to CX; PTCA/Stent PTCA/stent to prox RCA 05/06; PTCA/LILY in mid to distal RCA 08/29/12; CABG x2 ARREGUIN tp LAD and SVG to OM2 01/02/11 S/P CABG (coronary artery bypass graft) (Chronic ~01/02/11) CABG x2 ARREGUIN tp LAD and SVG to OM2 01/02/11 Paroxysmal atrial fibrillation (Chronic) Hyperlipidemia (Chronic) Hypertension (Chronic) Hospital Course and Treatment Operations: None Procedures: None Summary of Care Provided: The patient is a 72 year old F room at [facility] after sustaining a fall at home. Patient was an inconsistent informant, there was a suspicion of somnolence from gabapentin which that the patient takes chronically. Examination in the emergency room revealed the patient to be oriented x1, patient had been seen the night before in the emergency department at [facility] and treated for cellulitis of the left leg with doxycycline. CT of the head was carried out it showed no acute findings, white blood cell count was elevated at 24, creatinine was 1.61. Patient was given IV vancomycin and admitted to [place] [id number]. Patient was felt not to have sepsis. Patient's mental status improved during her hospital stay, she was seen in consultation by infectious diseases and was seen by PT, OT, and speech therapy due to expressive language defects which appeared to be chronic in nature. Patient had a severe flareup of her chronic trigeminal neuralgia in her right face, her Neurontin was briefly increased but she became somnolent on this medication and Tegretol was added and finally the patient was placed on IV Decadron. She received outpatient corticosteroid injections in her right face but due to the fact that she had just completed 1 2 weeks prior, she was not able to have another facial injection. Conversation was carried out with the patient's son who lives with her, I expressed my concern that the patient was taken to much Neurontin at home and at the time of her discharge, her dose of Neurontin was decreased. Patient's Tegretol was also stopped after 48 hours. MRI of the brain did not show any evidence of acute stroke-it was noted that the patient had severe expressive language defects and was seen by speech therapy, it appears that the patient had these before admission but they became worse during the time she was in the hospital. Physical exam: On examination she appeared in good health and spirits. Vital signs as documented. Skin warm and dry and without overt rashes. Neck without JVD. Lungs clear. Heart exam notable for regular rhythm, normal sounds and absence of murmurs, rubs or gallops. Abdomen unremarkable and without evidence of organomegaly, masses, or abdominal aortic enlargement. Extremities-there is some redness noted of the left lower leg, there are chronic edematous changes of both lower legs. Neuro: Patient exhibits expressive language defects with word searching, cranial nerves II through XII are grossly intact, no focal motor deficits were noted. Psych: Patient was alert and oriented x3, she did not appear to be anxious or depressed. On 12/21/17, patient was seen and examined felt to be in stable condition for discharge home, patient did not want to go to assisted facility and it was felt that it was not strictly necessary as there were multiple family members she lives with at her home. - Physical Exam Vital Signs Temp Pulse Resp BP Pulse Ox 99.8 F H 68 18 142/88 H 98 12/21/17 14:33 12/21/17 14:36 12/21/17 14:33 12/21/17 14:33 12/21/17 14:33 Oxygen Delivery Method Room Air Weight: 98 kg Body Mass Index (BMI) 42.2 Finger Stick Blood Glucose 187 Intake and Output for Last 24 Hours 12/21/17 12/22/17 12/23/17 23:59 23:59 23:59 Intake Total 800 / 800 Balance 800 / 800 Microbiology Past 72 Hours 12/16/17 05:15 Blood Culture - Final Blood Culture (Wb) - Left Forearm No growth in 5 days. 12/16/17 05:10 Blood Culture - Final Blood Culture (Wb) - Right Hand No growth in 5 days. Discharge Activity: Return to Normal Activity Weight Bearing Status: Weight bearing as tolerated - with walker Home Medications: Medications to take at Discharge Docusate Sodium [Colace] 100 mg PO DAILY PRN 05/10/17 Magnesium Oxide 400 mg PO BID 05/10/17 Pantoprazole Sodium [Protonix] 40 mg PO DAILY 05/10/17 Rivaroxaban [Xarelto] 15 mg PO DAILY 05/10/17 metoprolol tartrate 50 mg tablet 50 mg PO BID #180 tab 09/18/17 amiodarone 200 mg tablet 200 mg PO DAILY #90 tab 10/10/17 Duloxetine HCl 60 mg PO DAILY 10/24/17 Acetaminophen [Tylenol Tablet] 1,000 mg PO Q8 tablet 10/27/17 Glucerna Shake 120 ml PO 4X/DAY liquid 10/27/17 Ferrous Sulfate 325 mg PO DAILY@0800 11/22/17 Acetaminophen [Tylenol Tablet] 650 mg PO Q6H PRN PRN tablet 12/21/17 Cephalexin [Keflex] 250 mg PO Q8 #15 capsule 12/21/17 Furosemide 40 mg PO DAILY #1 tab 12/21/17 Gabapentin [Neurontin] 600 mg PO BIDCM #60 tablet 12/21/17 Nystatin 250,000 unit PO 4X/DAY #100 ml 12/21/17 Potassium Chloride [Klor-Con] 20 meq PO DAILY #1 packet 12/21/17 Following Prescrptions Were Given to Patient: Cephalexin [Keflex] 250 mg PO Q8 #15 capsule Furosemide 40 mg PO DAILY #1 tab Potassium Chloride [Klor-Con] 20 meq PO DAILY #1 packet Gabapentin [Neurontin] 600 mg PO BIDCM #60 tablet Nystatin 250,000 unit PO 4X/DAY #100 ml Primary Care Physician: Octaviano Franco Chi, MD [Primary Care Provider] - Please follow up with your Primary Care Physician in: in 1-2 weeks Disposition: Home with Home Health Minutes spent on discharge:: 32 Patient Condition:: Stable Medical Necessity - Tobacco Use Smoking Status: Former smoker Meaningful Use Info Meaningful Use Diagnoses (Choose all that apply): None applicable Code Visit Inpatient E&M: 21466 Disch Hosp
--- NOTE | 2017-12-23 10:22 | DS.PCM_ITS ---
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 #11 MS #12 somnolence secondary to gabapentin usage - Secondary Discharge Diagnosis Chronic Problems (Last Updated 12/16/17 @ 09:33 by Douglas Bowman DO) PVD (peripheral vascular disease) (Chronic) Controlled diabetes mellitus (Chronic) Edema, lower extremity (Chronic) Presence of stent in coronary artery (Chronic) PTCA/stent to CX; PTCA/Stent PTCA/stent to prox RCA 05/06; PTCA/LILY in mid to distal RCA 08/29/12 Atherosclerotic heart disease of [place] coronary artery without angina pectoris (Chronic) PTCA/stent to CX; PTCA/Stent PTCA/stent to prox RCA 05/06; PTCA/LILY in mid to distal RCA 08/29/12; CABG x2 ARREGUIN tp LAD and SVG to OM2 01/02/11 S/P CABG (coronary artery bypass graft) (Chronic ~01/02/11) CABG x2 ARREGUIN tp LAD and SVG to OM2 01/02/11 Paroxysmal atrial fibrillation (Chronic) Hyperlipidemia (Chronic) Hypertension (Chronic) Hospital Course and Treatment Operations: None Procedures: None Summary of Care Provided: The patient is a 72 year old F room at [facility] after sustaining a fall at home. Patient was an inconsistent informant, there was a suspicion of somnolence from gabapentin which that the patient takes chronically. Examination in the emergency room revealed the patient to be oriented x1, patient had been seen the night before in the emergency department at [facility] and treated for cellulitis of the left leg with doxycycline. CT of the head was carried out it showed no acute findings, white blood cell count was elevated at 24, creatinine was 1.61. Patient was given IV vancomycin and admitted to [place] [address]. Patient was felt not to have sepsis. Patient's mental status improved during her hospital stay, she was seen in consultation by infectious diseases and was seen by PT, OT, and speech therapy due to expressive language defects which appeared to be chronic in nature. Abdiel whitfield had a severe flareup of her chronic trigeminal neuralgia in her right face, her Neurontin was briefly increased but she became somnolent on this medication and Tegretol was added and finally the patient was placed on IV Decadron. She received outpatient corticosteroid injections in her right face but due to the fact that she had just completed 1 2 weeks prior, she was not able to have another facial injection. Conversation was carried out with the patient's son who lives with her, I expressed my concern that the patient was taken to much Neurontin at home and at the time of her discharge, her dose of Neurontin was decreased. Patient's Tegretol was also stopped after 48 hours. MRI of the brain did not show any evidence of acute stroke-it was noted that the patient had severe expressive language defects and was seen by speech therapy, it appears that the patient had these before admission but they became worse during the time she was in the hospital. Physical exam: On examination she appeared in good health and spirits. Vital signs as documented. Skin warm and dry and without overt rashes. Neck without JVD. Lungs clear. Heart exam notable for regular rhythm, normal sounds and absence of murmurs, rubs or gallops. Abdomen unremarkable and without evidence of organomegaly, masses, or abdominal aortic enlargement. Extremities-there is some redness noted of the left lower leg, there are chronic edematous changes of both lower legs. Neuro: Patient exhibits expressive language defects with word searching, cranial nerves II through XII are grossly intact, no focal motor d eficits were noted. Psych: Patient was alert and oriented x3, she did not appear to be anxious or depressed. On 12/21/17, patient was seen and examined felt to be in stable condition for discharge home, patient did not want to go to snf facility and it was felt that it was not strictly necessary as there were multiple family members she lives with at her home. - Physical Exam Vital Signs Temp Pulse Resp BP Pulse Ox 99.8 F H 68 18 142/88 H 98 12/21/17 14:33 12/21/17 14:36 12/21/17 14:33 12/21/17 14:33 12/21/17 14:33 Oxygen Delivery Method Room Air Weight: 98 kg Body Mass Index (BMI) 42.2 Finger Stick Blood Glucose 187 Intake and Output for Last 24 Hours 12/21/17 12/22/17 12/23/17 23:59 23:59 23:59 Intake Total 800 / 800 Balance 800 / 800 Microbiology Past 72 Hours 12/16/17 05:15 Blood Culture - Final Blood Culture (Wb) - Left Forearm No growth in 5 days. 12/16/17 05:10 Blood Culture - Final Blood Culture (Wb) - Right Hand No growth in 5 days. Discharge Activity: Return to Normal Activity Weight Bearing Status: Weight bearing as tolerated - with walker Home Medications: Medications to take at Discharge Docusate Sodium [Colace] 100 mg PO DAILY PRN 05/10/17 Magnesium Oxide 400 mg PO BID 05/10/17 Pantoprazole Sodium [Protonix] 40 mg PO DAILY 05/10/17 Rivaroxaban [Xarelto] 15 mg PO DAILY 05/10/17 metoprolol tartrate 50 mg tablet 50 mg PO BID #180 tab 09/18/17 amiodarone 200 mg tablet 200 mg PO DAILY #90 tab 10/10/17 Duloxetine HCl 60 mg PO DAILY 10/24/17 Acetaminophen [Tylenol Tablet] 1,000 mg PO Q8 tablet 10/27/17 Glucerna Shake 120 ml PO 4X/DAY liquid 10/27/17 Ferrous Sulfate 325 mg PO DAILY@0800 11/22/17 Acetaminophen [Tylenol Tablet] 650 mg PO Q6H PRN PRN tablet 12/21/17 Cephalexin [Keflex] 250 mg PO Q8 #15 capsule 12/21/17 Furosemide 40 mg PO DAILY #1 tab 12/21/17 Gabapentin [Neurontin] 600 mg PO BIDCM #60 tablet 12/21/17 Nystatin 250,000 unit PO 4X/DAY #100 ml 12/21/17 Potassium Chloride [Klor-Con] 20 meq PO DAILY #1 packet 12/21/17 Following Prescrptions Were Given to Patient: Cephalexin [Keflex] 250 mg PO Q8 #15 capsule Furosemide 40 mg PO DAILY #1 tab Potassium Chloride [Klor-Con] 20 meq PO DAILY #1 packet Gabapentin [Neurontin] 600 mg PO BIDCM #60 tablet Nystatin 250,000 unit PO 4X/DAY #100 ml Primary Care Physician: Octaviano Franco Chi, MD [Primary Care Provider] - Please follow up with your Primary Care Physician in: in 1-2 weeks Disposition: Home with Home Health Minutes spent on discharge:: 32 Patient Condition:: Stable Medical Necessity - Tobacco Use Smoking Status: Former smoker Meaningful Use Info Meaningful Use Diagnoses (Choose all that apply): None applicable Code Visit Inpatient E&M: 16843 Disch Hosp
--- NOTE | 2017-12-28 09:03 | CASEMGMT ---
RN CM Discharge Follow-up Phone Call: PANCHO: Taj Strata: 4 Call Date: 12/28/17 Discharge Date: 12/21/17 Time of Call: 0900 Duration: 0 ? Admitting Diagnosis: Cellulitis This RN CM attempted to contact pt via telephone in regard to DC follow-up. Voicemail received and voicemail box was full so unable to leave a message.
== END 2017-12-21 19:12 | disposition home health service (06) | DRG 603 ==
LOC: ED 04:04 → MS3 05:50
PROVIDERS: Admitting Provider Internal Medicine; Emergency Provider Emergency Medicine; Family Provider Family Medicine Geriatric Medicine; PCP Family Medicine Geriatric Medicine; Visit Provider Internal Medicine
DX: L03.116 Cellulitis of left lower limb (principal); E87.2 Acidosis; I89.0 Lymphedema, not elsewhere classified; I12.9 Hypertensive chronic kidney disease with stage 1 through stage 4 chronic kidney disease, or unspecified chronic kidney disease; I25.10 Atherosclerotic heart disease of native coronary artery without angina pectoris; N18.3 Chronic kidney disease, stage 3 (moderate); S00.01XA Abrasion of scalp, initial encounter; W19.XXXA Unspecified fall, initial encounter; Y92.009 Unspecified place in unspecified non-institutional (private) residence as the place of occurrence of the external cause; T42.6X5A Adverse effect of other antiepileptic and sedative-hypnotic drugs, initial encounter; G50.0 Trigeminal neuralgia; E78.5 Hyperlipidemia, unspecified; R53.81 Other malaise; G35 Multiple sclerosis; I48.0 Paroxysmal atrial fibrillation; E11.9 Type 2 diabetes mellitus without complications; I73.9 Peripheral vascular disease, unspecified; F80.1 Expressive language disorder; Z95.1 Presence of aortocoronary bypass graft; Z95.5 Presence of coronary angioplasty implant and graft; Z87.891 Personal history of nicotine dependence; Z79.02 Long term (current) use of antithrombotics/antiplatelets; Z79.899 Other long term (current) drug therapy
CPT/HCPCS: 11042; 36415; 70450; 70551; 71045; 80048; 80053; 81001; 82962; 83036; 83605; 85025; 85652; 87040; 87086; 87088; 87641; 92523; 93005; 97162; 97166; 97530; 99283; 99284; J7030; J7050; A4216

== ENCOUNTER → 2017-12-25 14:35 | Outpatient (CLI) | payer MEDICARE, SELFPAY | PROVIDERS: Family Provider Family Medicine Geriatric Medicine; PCP Family Medicine Geriatric Medicine; Visit Provider Family Medicine Geriatric Medicine | DX: N39.0 Urinary tract infection, site not specified (principal) | CPT/HCPCS: 87077; 87086; 87088; 87186 ==

== ENCOUNTER 2017-12-28 11:02 | Emergency (ER) | payer MEDICARE, SELFPAY ==
[2017-12-28 11:06] VITALS: BP 160/85; PULSE 105; RESP 14; TEMP 36.4; O2SAT 100; BMI 41.0
[2017-12-28] MEDS: Morphine 4 MG/ML Syringe IV (11:54)
--- NOTE | 2017-12-28 13:12 | ED.VISSUMM ---
- ER Visit Summary Date of Service: 12/28/17 Chief Complaint: Trigeminal neuralgia pain History of Present Illness: The patient is a 72 F who presents with trigeminal neuralgia pain that has been constant for the past 2 weeks. Patient states the pain has gradually gotten worse. Patient describes the pain is sharp. Patient states the pain is worse with anything she does. Patient states nothing is help with the pain. Patient states she is on Neurontin for her pain. Patient denies any fevers or chills. Patient denies any difficulty swallowing. Patient denies any sore throat. Physical Examination: Vital signs are stable. Patient is afebrile. Patient is in no acute distress. Oral mucosa is pink and moist. Tympanic membranes are clear bilaterally. Pupils are equal, round, reactive to light bilaterally. Extraocular muscles are intact. There is tenderness over the trigeminal nerve anterior to the right ear. There is no erythema or edema noted. Neck is supple. Trachea is midline. There is no JVD noted. Heart was regular rate and rhythm. Lungs are clear and equal bilaterally. There is good respiratory effort noted. Abdomen is soft and nontender. Cranial nerves II through XII are intact. There are no focal motor or sensory deficits noted. The remaining physical exam is within normal limits. Emergency Department Course and Treatment: Patient was given a dose of morphine here. Patient felt better on reevaluation. Patient was given a prescription for short course of [place]. Patient was instructed to follow-up with her primary care physician in 5-7 days. Patient understood and was agreeable with the plan. All questions were answered. Disposition: Discharged home Impression: Trigeminal neuralgia This note was generated with [employer] dictation software. It may contain incorrect words, spelling, and punctuation that were not noted in review of the chart prior to signing ED Disposition - Plan for ED Patient: Disposition: Home or Assisted Living Chief Complaint: Other, Pain/Inj Diagnosis: Trigeminal neuralgia of right side of face Instructions: ED Chronic Pain Management Prescriptions: Hydrocodone Bitart/Apap 5-325 [[place] 5MG-325MG] 1 tab PO Q6H PRN PRN 3 Days #10 tab PRN Reason: Pain Referrals: Octaviano Franco Chi, MD [Primary Care Provider] - Benoit Martínez MD [STAFF PHYSICIAN] -
--- NOTE | 2017-12-28 13:15 | ED.DCSUM_ITS ---
- ER Visit Summary Date of Service: 12/28/17 Chief Complaint: Trigeminal neuralgia pain History of Present Illness: The patient is a 72 F who presents with trigeminal neuralgia pain that has been constant for the past 2 weeks. Patient states the pain has gradually gotten worse. Patient describes the pain is sharp. Patient states the pain is worse with anything she does. Patient states nothing is help with the pain. Patient states she is on Neurontin for her pain. Patient denies any fevers or chills. Patient denies any difficulty swallowing. Patient denies any sore throat. Physical Examination: Vital signs are stable. Patient is afebrile. Patient is in no acute distress. Oral mucosa is pink and moist. Tympanic membranes are clear bilaterally. Pupils are equal, round, reactive to light bilaterally. Extraocular muscles are intact. There is tenderness over the trigeminal nerve anterior to the right ear. There is no erythema or edema noted. Neck is supple. Trachea is midline. There is no JVD noted. Heart was regular rate and rhythm. Lungs are clear and equal bilaterally. There is good respiratory effort noted. Abdomen is soft and nontender. Cranial nerves II through XII are intact. There are no focal motor or sensory deficits noted. The remaining physical exam is within normal limits. Emergency Department Course and Treatment: Patient was given a dose of morphine here. Patient felt better on reevaluation. Patient was given a prescription for short course of [place]. Patient was instructed to follow-up with her primary care physician in 5-7 days. Patient understood and was agreeable with the plan. All questions were answered. Disposition: Discharged home Impression: Trigeminal neuralgia This note was generated with [employer] dictation software. It may contain incorrect words, spelling, and punctuation that were not noted in review of the chart prior to signing ED Disposition - Plan for ED Patient: Disposition: Home or Assisted Living Chief Complaint: Other, Pain/Inj Diagnosis: Trigeminal neuralgia of right side of face Instructions: ED Chronic Pain Management Prescriptions: Hydrocodone Bitart/Apap 5-325 [[place] 5MG-325MG] 1 tab PO Q6H PRN PRN 3 Days #10 tab PRN Reason: Pain Referrals: Octaviano Franco Chi, MD [Primary Care Provider] - Benoit Martínez MD [STAFF PHYSICIAN] -
== END 2017-12-28 12:30 | disposition home or self-care (01) ==
PROVIDERS: Emergency Provider Emergency Medicine; Family Provider Family Medicine Geriatric Medicine; PCP Family Medicine Geriatric Medicine
DX: G50.0 Trigeminal neuralgia (principal); E66.9 Obesity, unspecified; G35 Multiple sclerosis; I25.10 Atherosclerotic heart disease of native coronary artery without angina pectoris; Z79.02 Long term (current) use of antithrombotics/antiplatelets; Z79.899 Other long term (current) drug therapy
CPT/HCPCS: 96374; 99283; A4216

== ENCOUNTER 2018-01-03 10:00 | Outpatient (RCR) | payer MEDICARE, SELFPAY ==
[2017-12-06 00:49] VITALS: BP 175/69; PULSE 75; RESP 18; TEMP 37
[2017-12-06 10:41] VITALS: BP 171/76; PULSE 60; RESP 16; TEMP 36.5
--- NOTE | 2017-12-06 13:57 | PCM.WC.PN ---
(1) Ulcer of right foot with fat layer exposed Status: Acute Current Visit: No Code(s): L97.512 - Non-pressure chronic ulcer of other part of right foot with fat layer exposed (2) PVD (peripheral vascular disease) Status: Chronic Current Visit: No Code(s): I73.9 - Peripheral vascular disease, unspecified (3) Controlled diabetes mellitus Status: Chronic Current Visit: No Code(s): E11.9 - Type 2 diabetes mellitus without complications (4) Edema, lower extremity Status: Chronic Current Visit: No Code(s): R60.0 - Localized edema Type of Wound Chief Complaint: Left anterior lower leg ulceration that will not heal. History of Wound: This 72 year old female has significant history of diabetes and multiple sclerosis, bilateral traumatic leg wounds, and other comorbidities. She presents to office today after being referred by Dr. Franco. Per his note, the patient had finished up a prescription for keflex and is on rocephin. Patient states that she recently got a new bed. She says since she is short she had to get a stool in order to get onto her bed. She fell on the stool and got an ulcer on the left anterior leg. She says this happed close to two weeks ago and has not seen much of an improvment since. She has been dressing the ulcer site with bacitracin. She denies any purulence, malodor, redness around the ulcer. She also denies any feelings of nausea, vomiting, fever, or chills currently. Progress of Wound: Patient presents for follow up today for dorsal right foot ulcer. Continud improvment noted. She continues to try to keep compression to her lower extremity as instructed, but has been having trouble with this. She also admits to not taking the recommended dose of Lasix. She currently denies any feelings of nausea, vomiting, fever, or chills. - Physical Exam Vital Signs Temp Pulse Resp BP 97.7 F L 60 16 171/76 H 12/06/17 10:41 12/06/17 10:41 12/06/17 10:41 12/06/17 10:41 General: Alert, Oriented x3, Cooperative, No apparent distress Extremities: Capillary Refill Less than 3 Seconds, No Calf Tenderness - Negative Sunita and Abraham sign, Diminished Peripheral Pulses - DP and PT pulses nonpalpable due to pitting lower extremity edema, Edema - Bilateral pitting lower extremity edema Skin: Ulcer/ Wound - Ulcer to right dorsal foot with measurements noted below. The base is noted to be a mixture of adherent slough, fibrin, granular tissue as well as some slight surrounding hyperkeratotic tissue. There continues to be no probing to bone, no tracking, no undermining, no purulence, no malodor, no extending cellulitis, no significant increase in warmth to the ulcer site at this time. 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 -Combined with other wound No -Current Size (cm) - Length 0 -Current Size (cm) - Width 0 -Current Size (cm) - Depth 0 -Total Square Cm 0 -Date of Last Picture (Recall this 12/06/17 field) -Photo Taken Yes -Epithelialization Large 67-100% #7 RIGHT DORSAL FOOT -Combined with other wound No -Current Size (cm) - Length 0.1 -Current Size (cm) - Width 0.1 -Current Size (cm) - Depth 0.1 -Total Square Cm 0.01 -Epithelialization Large 67-100% #5 Left Lateral Leg superior CLUSTER -Combined with other wound No -Current Size (cm) - Length 1 -Current Size (cm) - Width 1 -Current Size (cm) - Depth 0.1 -Total Square Cm 1 -Photo Taken No -Epithelialization Small 1-33% -Tunneling No -Undermining/Tunneling No -Circular Undermining No -Exudate Amt None Present (0 %) -Wound Margin Distinct, Outline Attached -Granulation Amt Large (67-100%) -Granulation Quality Red -Slough/Fibrin No -Necrosis Amt None Present (0 %) -Texture (Char-wound Skin Appearance) Scarring -Moisture (Char-wound Skin Appearance Dry/Scaly ) -Color (Char-wound Skin Appearance) Hemosiderin Staining -Temperature (Char-wound Skin No Abnormality Appearance) (Pt Warm) -Tenderness on Palpation (Char-wound No Skin Appearance) -Ulcer Cleansing Rinsed/ Irrigated with Saline -Foul Odor after Cleansing No -Anesthetic Used 4% Lidocaine Solution [Edema Assessment] -Lower Limb Edema Present Yes -Right Calf (cm) 44.1 -Right Ankle (cm) 29.1 -Left Calf (cm) 48.3 -Left Ankle (cm) 29.4 [facility] - Nurse 2 - General Ulcer CM Notes Start: 12/06/17 10:41 Freq: Status: Active Protocol: Activity Type Activity Date Activity User E-Sign Co-Sign Detail Recorded Client Recorded Date Recorded By Document 12/06/17 11:51 DV [id number] 12/06/17 11:56 DV 12/06/17 11:51 Wound Center Nurse 2 [Procedure/Treatment] #7 RIGHT DORSAL FOOT -Time 11:52 -Correct Patient Yes -Correct Side, Site, Position Yes -Correct Procedure Yes -Procedure Performed Yes -Type of Procedure Debridement -Clinical Debridement Subcutaneous -Post Debridement Size (cm) - Length 0.2 -Post Debridement Size (cm) - Width 0.4 -Post Debridement Size (cm) - Depth 0.1 -Total Square Cm 0.08 -Wound/Ulcer Outcome Not Healed -Ulcer Cleansing Rinsed/ Irrigated with Saline -Foul Odor after Cleansing No -Bioengineered Tissue No -Bleeding Controlled with Pressure -Treatment Response Procedure Tolerated Well [See Physician Procedure note for Specifics] Pain Scale: 0-10 Numeric [Pain] -Is Patient Pain Free? Yes Musculoskeletal: Tenderness - With manipulation of ulcer sites Neurological: Sensory exam intact to light touch and pain Psych/Mental Status: Normal Affect, Appropriate Debridement Note Post-Debridement Measurements/Treatment [facility] - Nurse 2 - General Ulcer CM Notes Start: 12/06/17 10:41 Freq: Status: Active Protocol: Activity Type Activity Date Activity User E-Sign Co-Sign Detail Recorded Client Recorded Date Recorded By Document 12/06/17 11:51 DV [id number] 12/06/17 11:56 DV 12/06/17 11:51 Wound Center Nurse 2 #7 RIGHT DORSAL FOOT -Time 11:52 -Correct Patient Yes -Correct Side, Site, Position Yes -Correct Procedure Yes -Procedure Performed Yes -Type of Procedure Debridement -Clinical Debridement Subcutaneous -Post Debridement Size (cm) - Length 0.2 -Post Debridement Size (cm) - Width 0.4 -Post Debridement Size (cm) - Depth 0.1 -Total Square Cm 0.08 -Wound/Ulcer Outcome Not Healed -Ulcer Cleansing Rinsed/ Irrigated with Saline -Foul Odor after Cleansing No -Bioengineered Tissue No -Bleeding Controlled with Pressure -Treatment Response Procedure Tolerated Well Pain Scale: 0-10 Numeric Is Patient Pain Free? Yes Wound debrided: Right dorsal foot Laterality: Right Type of Debridement: Excisional debridement Anesthesia Used: 4% Lidocaine Solution Depth: in the subcutaneous layer Percentage of wound debrided: 100 Instrument Used: 7mm curette Tissue Removed: Adherent slough, fibrin, hyperkeratotic tissue Severity: Fat Layer Exposed Amount of bleeding with debridement: Mild Bleeding Controlled with: Pressure Patient tolerated procedure well Assessment/Plan Assessment: Ulcer to left lower leg with fat layer exposed. DM II. Lower extremity edema Plan: Patient was again examined and evaluated today. The right dorsal foot ulcer was debrided subcutaneously as noted in the clinical panel. Once the ulcer was debrided and carefully cleansed, the ulcer site was then dressed with silvercel, followed by a dry sterile dressing along with tubigrips for compression. The dressing is to be changed in this manner daily. She will do this with the help of family friend, her son, and home health. It was again discussed the importance of keeping the compression from the toes all the way up to the knee. She has not been fully compliant with this in the past. She was instrcuted on the importance of keeping pressure off of all of the ulcer sites at all times while seated. She is to keep her legs raised while seated or lying down, as her son says she sits with her legs in dependent position. I again stressed the importance of compression with the patient's healing. She was instructed to wear the tubigrip and to keep her lower extremities elevated while seated. She is to continue with lasix as prescribed by Dr. Franco. She has only been taking half the recommended dose. I recommended a high-protein diet for this patient to supplement wound healing. Patient was educated on all signs and symptoms of local and systemic infection, and was instructed to go to the ER immediately should she notice any. All other questions were answered to the patient's satisfaction. The patient will follow-up in clinic in 1 week to check on progress, or sooner if needed.
--- NOTE | 2017-12-07 08:08 | VDLE_ITS ---
Reason For Study: EDEMA RIGHT LEFT CFV is compressible, spontaneous, phasic, CFV is compressible, spontaneous, phasic, competent and demonstrates normal competent, and demonstrates normal augmentation. augmentation. FV is compressible, spontaneous, phasic, FV is compressible, spontaneous, phasic, competent and demonstrates normal competent and demonstrates normal augmentation. augmentation. POP V is compressible, spontaneous, phasic, POP V is compressible, spontaneous, phasic, competent and demonstrates normal competent and demonstrates normal augmentation. augmentation. T/P Trunk is compressible. T/P Trunk is compressible. RT calf veins are difficult to visualize due PTV and PeroV of LLE are not well to pitting edema . visualized. RT PTV/ PeroV is compressible distally and Left SSV is compressible but too small to not visualized for the remainder of the assess for incompetency. vessel. Left GSV at SFJ is compressible and RT GSV at SFJ is compressible and competent. competent. Remainder of RT GSV is compressible and Remainder of Left GSV is absent. competent. Superficial accessory veins of RT calf are partially compressible with echoes consistent with chronic superficial thrombophlebitis. RT SSV is compressible and competent. Procedure Exam performed in department. The exam was of poor technical quality due to edema. A preliminary report was called and/or faxed to [facility]. <> Interpretation Summary Deep veins of the lower extremities are bilaterally patent and compressible segmentally. There is no evidence of deep vein thrombosis on either side. Valvular competence appears intact within the proximal deep venous systems bilaterally. However, portions of the posterior tibial veins and peroneal veins were not visualized on either side. Sapheno-femoral junctions are bilaterally competent . The right greater saphenous vein is patent, compressible, and competent. The left greater saphenous vein is absent. The right small saphenous vein is patent and competent. The left small saphenous vein is patent and compressible, but too small to assess in terms of competence. Chronic changes consistent with chronic superficial thrombophlebitis are noted in the right calf. Ordering Physician: Bayron Dutton Referring Physician: REBECCA SEO CHI Performed By: Delmis Bird RDCS, RVT
--- NOTE | 2017-12-09 10:56 | LEAS ---
Arterial Study - Arterial Study Arterial Study: This is a 72-year-old female with a history of hypertension, diabetes mellitus, coronary artery disease, and prior PTCA. The patient presents with a chronic nonhealing wound to the left lower extremity. Suspecting the presence of atherosclerotic peripheral arterial occlusive disease, the patient was brought to the noninvasive vascular laboratory at this time for the purpose of bilateral noninvasive lower extremity arterial assessment. Doppler signal assessment was used to evaluate the pulses at ankle level bilaterally. The posterior tibial and dorsalis pedis pulses were biphasic bilaterally. Segmental limb pressures were obtained bilaterally. Ankle pressures, as determined by posterior tibial and dorsalis pedis pulses, could not be determined on either side due to the noncompressibility of the vasculature. The right digital pressure was measured at 139 mmHg. The left digital pressure was measured at 160 mmHg. Pulse?volume recordings were obtained bilaterally and segmentally. Waveform amplitudes appeared satisfactory at all levels bilaterally, though augmentation between thigh and calf levels was not noted on either side. Resting ankle?brachial indices could not be calculated on either side due to the noncompressibility of the vasculature. Digital?brachial indices were calculated bilaterally. The right digital-brachial index was calculated to be 0.80. The left digital-brachial index was calculated to be 0.92. Impression: Based upon the findings of this resting noninvasive lower extremity arterial study, arterial calcification is suspected bilaterally in the lower extremities. Ankle pressures could not be determined on either side, due to the noncompressibility of the vasculature, which is likely due to arterial calcification, rendering the arterial tree noncompressible. Biphasic waveforms were noted at ankle level bilaterally, which is relatively nonspecific as to the presence of an occlusive process. Digital-brachial indices are bilaterally normal, which suggests relatively normal arterial perfusion at digital level bilaterally. There is no specific indication of an occlusive process in the lower extremity arterial tree bilaterally. However, clinical correlation is advised.
--- NOTE | 2017-12-09 11:02 | LEAS_ITS ---
Arterial Study - Arterial Study Arterial Study: This is a 72-year-old female with a history of hypertension, diabetes mellitus, coronary artery disease, and prior PTCA. The patient presents with a chronic nonhealing wound to the left lower extremity. Suspecting the presence of atherosclerotic peripheral arterial occlusive disease, the patient was brought to the noninvasive vascular laboratory at this time for the purpose of bilateral noninvasive lower extremity arterial assessment. Doppler signal assessment was used to evaluate the pulses at ankle level bilaterally. The posterior tibial and dorsalis pedis pulses were biphasic bilaterally. Segmental limb pressures were obtained bilaterally. Ankle pressures, as determined by posterior tibial and dorsalis pedis pulses, could not be determined on either side due to the noncompressibility of the vasculature. The right digital pressure was measured at 139 mmHg. The left digital pressure was measured at 160 mmHg. Pulse?volume recordings were obtained bilaterally and segmentally. Waveform amplitudes appeared satisfactory at all levels bilaterally, though augmentation between thigh and calf levels was not noted on either side. Resting ankle?brachial indices could not be calculated on either side due to the noncompressibility of the vasculature. Digital?brachial indices were calculated bilaterally. The right digital- brachial index was calculated to be 0.80. The left digital-brachial index was calculated to be 0.92. Impression: Based upon the findings of this resting noninvasive lower extremity arterial study, arterial calcification is suspected bilaterally in the lower extremities. Ankle pressures could not be determined on either side, due to the noncompressibility of the vasculature, which is likely due to arterial calcification, rendering the arterial tree noncompressible. Biphasic waveforms were noted at ankle level bilaterally, which is relatively nonspecific as to the presence of an occlusive process. Digital-brachial indices are bilaterally normal, which suggests relatively normal arterial perfusion at digital level bi laterally. There is no specific indication of an occlusive process in the lower extremity arterial tree bilaterally. However, clinical correlation is advised.
[2017-12-13 10:36] VITALS: BP 137/95; PULSE 66; RESP 18; TEMP 36.6
--- NOTE | 2017-12-13 14:03 | PCM.WC.PN ---
(1) Ulcer of left lower extremity with fat layer exposed Status: Acute Current Visit: Yes Code(s): L97.922 - Non-pressure chronic ulcer of unspecified part of left lower leg with fat layer exposed (2) Ulcer of right foot with fat layer exposed Status: Acute Current Visit: No Code(s): L97.512 - Non-pressure chronic ulcer of other part of right foot with fat layer exposed (3) PVD (peripheral vascular disease) Status: Chronic Current Visit: No Code(s): I73.9 - Peripheral vascular disease, unspecified (4) Controlled diabetes mellitus Status: Chronic Current Visit: No Code(s): E11.9 - Type 2 diabetes mellitus without complications (5) Edema, lower extremity Status: Chronic Current Visit: No Code(s): R60.0 - Localized edema Type of Wound Chief Complaint: Left anterior lower leg ulceration that will not heal. History of Wound: This 72 year old female has significant history of diabetes and multiple sclerosis, bilateral traumatic leg wounds, and other comorbidities. She presents to office today after being referred by Dr. Franco. Per his note, the patient had finished up a prescription for keflex and is on rocephin. Patient states that she recently got a new bed. She says since she is short she had to get a stool in order to get onto her bed. She fell on the stool and got an ulcer on the left anterior leg. She says this happed close to two weeks ago and has not seen much of an improvment since. She has been dressing the ulcer site with bacitracin. She denies any purulence, malodor, redness around the ulcer. She also denies any feelings of nausea, vomiting, fever, or chills currently. Progress of Wound: Patient presents for follow up today for dorsal right foot ulcer. This area is healed today. She did however develop a new small ulcer to left dorsal foot and left lateral lower leg. She continues to try to keep compression to her lower extremity as instructed, but has been having trouble with this. She also admits to not taking the recommended dose of Lasix, even after discussion last week. She currently denies any feelings of nausea, vomiting, fever, or chills. - Physical Exam Vital Signs Temp Pulse Resp BP 98 F 66 18 137/95 H 12/13/17 10:36 12/13/17 10:36 12/13/17 10:36 12/13/17 10:36 General: Alert, Oriented x3, Cooperative, No apparent distress Extremities: Capillary Refill Less than 3 Seconds, No Calf Tenderness - Negative Sunita and Abraham sign, Diminished Peripheral Pulses - DP and PT pulses nonpalpable due to pitting lower extremity edema, Edema - Bilateral pitting lower extremity edema Skin: Ulcer/ Wound - Ulcer to right dorsal foot healed today. New small ulcer to left dorsal foot and left lateral lower leg. Bases are noted to be a mixture of adherent slough, fibrin, granular tissue, as well as some slight surrounding hyperkeratotic tissue. There is no probing to bone, no tracking, no undermining, no purulence, no malodor, no extending cellulitis, no increase in warmth to either site at this time. Wound Measurements and Assessment WC - Nurse 1 - General Ulcer Measurement Start: 12/06/17 10:41 Freq: Status: Active Protocol: Activity Type Activity Date Activity User E-Sign Co-Sign Detail Recorded Client Recorded Date Recorded By Document 12/13/17 10:36 [facility] [id number] 12/13/17 10:46 [facility] 12/13/17 10:36 Wound Center Nurse 1 [Ulcer Assessment] 9. L DORSAL FOOT -Combined with other wound No -Current Size (cm) - Length 0.7 -Current Size (cm) - Width 0.1 -Current Size (cm) - Depth 0.2 -Total Square Cm 0.07 -Photo Taken Yes -Tunneling No -Undermining/Tunneling No -Circular Undermining No -Exudate Amt Small (1-33%) -Exudate Type Serosanguineous -Wound Margin Distinct, Outline Attached -Granulation Amt Medium (34-66%) -Granulation Quality [place] -Slough/Fibrin Yes -Necrosis Amt Small (1-33%) -Necrotic Tissue Type Adherent Slough -Structure Exposed N/A -Texture (Char-wound Skin Appearance) Assessed -Moisture (Char-wound Skin Appearance Assessed ) -Color (Char-wound Skin Appearance) Assessed -Temperature (Char-wound Skin No Abnormality Appearance) (Pt Warm) -Tenderness on Palpation (Char-wound No Skin Appearance) -Ulcer Cleansing Rinsed/ Irrigated with Saline -Foul Odor after Cleansing No -Anesthetic Used 4% Lidocaine Solution #7 RIGHT DORSAL FOOT -Combined with other wound No -Current Size (cm) - Length 0.1 -Current Size (cm) - Width 0.1 -Current Size (cm) - Depth 0.1 -Total Square Cm 0.01 -Photo Taken No -Tunneling No -Undermining/Tunneling No -Circular Undermining No -Classification - Thickness Full Thickness without Exposed Support Structure -Exudate Amt Small (1-33%) -Exudate Type Serosanguineous -Wound Margin Distinct, Outline Attached -Granulation Amt Small (1-33%) -Granulation Quality [place] -Slough/Fibrin Yes -Necrosis Amt Small (1-33%) -Necrotic Tissue Type Adherent Slough -Structure Exposed N/A -Texture (Char-wound Skin Appearance) Assessed Localized Edema -Moisture (Char-wound Skin Appearance Assessed ) -Color (Char-wound Skin Appearance) Assessed -Temperature (Char-wound Skin No Abnormality Appearance) (Pt Warm) -Tenderness on Palpation (Char-wound No Skin Appearance) -Ulcer Cleansing Rinsed/ Irrigated with Saline -Foul Odor after Cleansing No -Anesthetic Used 4% Lidocaine Solution #6 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 INFERIOR -Combined with other wound No -Current Size (cm) - Length 0.7 -Current Size (cm) - Width 0.7 -Current Size (cm) - Depth 0.1 -Total Square Cm 0.49 -Photo Taken No -Tunneling No -Undermining/Tunneling No -Circular Undermining No -Classification - Thickness Full Thickness without Exposed Support Structure -Exudate Amt Small (1-33%) -Exudate Type Serosanguineous -Wound Margin Distinct, Outline Attached -Granulation Amt Medium (34-66%) -Granulation Quality [place] -Slough/Fibrin Yes -Necrosis Amt Medium (34-66%) -Necrotic Tissue Type Adherent Slough -Structure Exposed N/A -Texture (Char-wound Skin Appearance) Assessed -Moisture (Char-wound Skin Appearance Assessed ) -Color (Char-wound Skin Appearance) Assessed -Temperature (Char-wound Skin No Abnormality Appearance) (Pt Warm) -Tenderness on Palpation (Char-wound No Skin Appearance) -Ulcer Cleansing Rinsed/ Irrigated with Saline -Foul Odor after Cleansing No -Anesthetic Used 4% Lidocaine Solution [Edema Assessment] -Lower Limb Edema Present Yes -Right Calf (cm) 45 -Right Ankle (cm) 30.1 -Left Calf (cm) 49 -Left Ankle (cm) 30.1 WC - Nurse 2 - General Ulcer CM Notes Start: 12/06/17 10:41 Freq: Status: Active Protocol: Activity Type Activity Date Activity User E-Sign Co-Sign Detail Recorded Client Recorded Date Recorded By Document 12/13/17 11:04 DV [id number] 12/13/17 11:08 DV 12/13/17 11:04 Wound Center Nurse 2 [Procedure/Treatment] 9. L DORSAL FOOT -Time 11:06 -Correct Patient Yes -Correct Side, Site, Position Yes -Correct Procedure Yes -Procedure Performed Yes -Type of Procedure Debridement -Clinical Debridement Subcutaneous -Post Debridement Size (cm) - Length 0.4 -Post Debridement Size (cm) - Width 0.4 -Post Debridement Size (cm) - Depth 0.1 -Total Square Cm 0.16 -Wound/Ulcer Outcome Not Healed -Ulcer Cleansing Rinsed/ Irrigated with Saline -Foul Odor after Cleansing No -Bioengineered Tissue No -Bleeding Controlled with Pressure -Treatment Response Procedure Tolerated Well #7 RIGHT DORSAL FOOT -Time 11:06 -Correct Patient Yes -Correct Side, Site, Position Yes -Procedure Performed No -Post Debridement Size (cm) - Length 0.1 -Post Debridement Size (cm) - Width 0.1 -Post Debridement Size (cm) - Depth 0.1 -Total Square Cm 0.01 -Wound/Ulcer Outcome Healed- Epithelialized #6 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 INFERIOR -Time 11:05 -Correct Patient Yes -Correct Side, Site, Position Yes -Correct Procedure Yes -Procedure Performed Yes -Type of Procedure Debridement -Clinical Debridement Subcutaneous -Post Debridement Size (cm) - Length 0.5 -Post Debridement Size (cm) - Width 0.5 -Post Debridement Size (cm) - Depth 0.1 -Total Square Cm 0.25 -Wound/Ulcer Outcome Not Healed -Ulcer Cleansing Rinsed/ Irrigated with Saline -Foul Odor after Cleansing No -Bioengineered Tissue No -Bleeding Controlled with Pressure -Treatment Response Procedure Tolerated Well [See Physician Procedure note for Specifics] Pain Scale: 0-10 Numeric [Pain] -Is Patient Pain Free? Yes Musculoskeletal: Tenderness - With manipulation of ulcer sites Neurological: Sensory exam intact to light touch and pain Psych/Mental Status: Normal Affect, Appropriate Debridement Note Post-Debridement Measurements/Treatment WC - Nurse 2 - General Ulcer CM Notes Start: 12/06/17 10:41 Freq: Status: Active Protocol: Activity Type Activity Date Activity User E-Sign Co-Sign Detail Recorded Client Recorded Date Recorded By Document 12/06/17 11:51 DV [id number] 12/06/17 11:56 DV Document 12/13/17 11:04 DV [id number] 12/13/17 11:08 DV 12/06/17 12/13/17 11:51 11:04 Wound Center Nurse 2 9. L DORSAL FOOT -Time 11:06 -Correct Patient Yes -Correct Side, Site, Position Yes -Correct Procedure Yes -Procedure Performed Yes -Type of Procedure Debridement -Clinical Debridement Subcutaneous -Post Debridement Size (cm) - Length 0.4 -Post Debridement Size (cm) - Width 0.4 -Post Debridement Size (cm) - Depth 0.1 -Total Square Cm 0.16 -Wound/Ulcer Outcome Not Healed -Ulcer Cleansing Rinsed/ Irrigated with Saline -Foul Odor after Cleansing No -Bioengineered Tissue No -Bleeding Controlled with Pressure -Treatment Response Procedure Tolerated Well #7 RIGHT DORSAL FOOT -Time 11:52 11:06 -Correct Patient Yes Yes -Correct Side, Site, Position Yes Yes -Correct Procedure Yes -Procedure Performed Yes No -Type of Procedure Debridement -Clinical Debridement Subcutaneous -Post Debridement Size (cm) - Length 0.2 0.1 -Post Debridement Size (cm) - Width 0.4 0.1 -Post Debridement Size (cm) - Depth 0.1 0.1 -Total Square Cm 0.08 0.01 -Wound/Ulcer Outcome Not Healed Healed- Epithelialized -Ulcer Cleansing Rinsed/ Irrigated with Saline -Foul Odor after Cleansing No -Bioengineered Tissue No -Bleeding Controlled with Pressure -Treatment Response Procedure Tolerated Well #6 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 INFERIOR -Time 11:05 -Correct Patient Yes -Correct Side, Site, Position Yes -Correct Procedure Yes -Procedure Performed Yes -Type of Procedure Debridement -Clinical Debridement Subcutaneous -Post Debridement Size (cm) - Length 0.5 -Post Debridement Size (cm) - Width 0.5 -Post Debridement Size (cm) - Depth 0.1 -Total Square Cm 0.25 -Wound/Ulcer Outcome Not Healed -Ulcer Cleansing Rinsed/ Irrigated with Saline -Foul Odor after Cleansing No -Bioengineered Tissue No -Bleeding Controlled with Pressure -Treatment Response Procedure Tolerated Well Pain Scale: 0-10 Numeric Is Patient Pain Free? Yes Yes Wound debrided: Left dorsal foot Laterality: Left Type of Debridement: Excisional debridement Anesthesia Used: 4% Lidocaine Solution Depth: in the subcutaneous layer Percentage of wound debrided: 100 Instrument Used: #15 blade Tissue Removed: Adherent slough, fibrin, hyperkeratotic tissue Severity: Fat Layer Exposed Amount of bleeding with debridement: Mild Bleeding Controlled with: Pressure Patient tolerated procedure well - Additional Wound Wound debrided: Left lateral lower leg Laterality: Left Type of Debridement: Excisional debridement Anesthesia Used: 4% Lidocaine Solution Depth: in the subcutaneous layer Percentage of wound debrided: 100 Instrument Used: #15 blade Tissue Removed: Adherent slough, fibrin, hyperkeratotic tissue Severity: Fat Layer Exposed Amount of bleeding with debridement: Mild Bleeding Controlled with: Pressure Patient tolerated procedure: Patient tolerated procedure well Assessment/Plan Active Problems (Last Reviewed 10/25/17 @ 01:47 by Oziel Angel MD) Ulcer of left lower extremity with fat layer exposed (Acute) Assessment: Ulcer to left lower leg with fat layer exposed. DM II. Lower extremity edema Plan: Patient was again examined and evaluated today. Right dorsal foot ulcer appears healed today. The left dorsal foot ulcer and left lateral lower leg ulcer were debrided subcutaneously as noted in the clinical panel. Once the ulcers were debrided and carefully cleansed, the sites were then dressed with silvercel, followed by a dry sterile dressing along with tubigrips for compression. The dressing is to be changed in this manner daily. She will do this with the help of family friend, her son, and home health. It was again discussed the importance of keeping the compression from the toes all the way up to the knee. She has not been fully compliant with this in the past. She was instrcuted on the importance of keeping pressure off of all of the ulcer sites at all times while seated. She is to keep her legs raised while seated or lying down, as her son says she sits with her legs in dependent position. I again stressed the importance of compression with the patient's healing. She was instructed to wear the tubigrip and to keep her lower extremities elevated while seated. She is to continue with lasix as prescribed by Dr. Franco. She has only been taking half the recommended dose. She again stated that she has not increased her Lasix yet and I again explained at great length why this is so important. I recommended a high-protein diet for this patient to supplement ulcer healing. Patient was educated on all signs and symptoms of local and systemic infection, and was instructed to go to the ER immediately should she notice any. All other questions were answered to the patient's satisfaction. The patient will follow-up in clinic in 1 week to check on progress, or sooner if needed.
--- NOTE | 2017-12-13 14:08 | PN.PCM_ITS ---
(1) Ulcer of left lower extremity with fat layer exposed Status: Acute Current Visit: Yes Code(s): L97.922 - Non-pressure chronic ulcer of unspecified part of left lower leg with fat layer exposed (2) Ulcer of right foot with fat layer exposed Status: Acute Current Visit: No Code(s): L97.512 - Non-pressure chronic ulcer of other part of right foot with fat layer exposed (3) PVD (peripheral vascular disease) Status: Chronic Current Visit: No Code(s): I73.9 - Peripheral vascular disease, unspecified (4) Controlled diabetes mellitus Status: Chronic Current Visit: No Code(s): E11.9 - Type 2 diabetes mellitus without complications (5) Edema, lower extremity Status: Chronic Current Visit: No Code(s): R60.0 - Localized edema Type of Wound Chief Complaint: Left anterior lower leg ulceration that will not heal. History of Wound: This 72 year old female has significant history of diabetes and multiple sclerosis, bilateral traumatic leg wounds, and other comorbidities. She presents to office today after being referred by Dr. Franco. Per his note, the patient had finished up a prescription for keflex and is on rocephin. Patient states that she recently got a new bed. She says since she is short she had to get a stool in order to get onto her bed. She fell on the stool and got an ulcer on the left anterior leg. She says this happed close to two weeks ago and has not seen much of an improvment since. She has been dressing the ulcer si te with bacitracin. She denies any purulence, malodor, redness around the ulcer. She also denies any feelings of nausea, vomiting, fever, or chills currently. Progress of Wound: Patient presents for follow up today for dorsal right foot ulcer. This area is healed today. She did however develop a new small ulcer to left dorsal foot and left lateral lower leg. She continues to try to keep compression to her lower extremity as instructed, but has been having trouble with this. She also admits to not taking the recommended dose of Lasix, even after discussion last week. She currently denies any feelings of nausea, vomiting, fever, or chills. - Physical Exam Vital Signs Temp Pulse Resp BP 98 F 66 18 137/95 H 12/13/17 10:36 12/13/17 10:36 12/13/17 10:36 12/13/17 10:36 General: Alert, Oriented x3, Cooperative, No apparent distress Extremities: Capillary Refill Less than 3 Seconds, No Calf Tenderness - Negative Sunita and Abraham sign, Diminished Peripheral Pulses - DP and PT pulses nonpalpable due to pitting lower extremity edema, Edema - Bilateral pitting lo wer extremity edema Skin: Ulcer/ Wound - Ulcer to right dorsal foot healed today. New small ulcer to left dorsal foot and left lateral lower leg. Bases are noted to be a mixture of adherent slough, fibrin, granular tissue, as well as some slight surrounding hyperkeratotic tissue. There is no probing to bone, no tracking, no undermining, no purulence, no malodor, no extending cellulitis, no increase in warmth to either site at this time. Wound Measurements and Assessment WC - Nurse 1 - General Ulcer Measurement Start: 12/06/17 10:41 Freq: Status: Active Protocol: Activity Type Activity Date Activity User E-Sign Co-Sign Detail Recorded Client Recorded Date Recorded By Document 12/13/17 10:36 [facility] [id number] 12/13/17 10:46 [facility] 12/13/17 10:36 Wound Center Nurse 1 [Ulcer Assessment] 9. L DORSAL FOOT -Combined with other wound No -Current Size (cm) - Length 0.7 -Current Size (cm) - Width 0.1 -Current Size (cm) - Depth 0.2 -Total Square Cm 0.07 -Photo Taken Yes -Tunneling No -Undermining/Tunneling No -Circular Undermining No -Exudate Amt Small (1-33%) -Exudate Type Serosanguineous -Wound Margin Distinct, Outline Attached -Granulation Amt Medium (34-66%) -Granulation Quality [place] -Slough/Fibrin Yes -Necrosis Amt Small (1-33%) -Necrotic Tissue Type Adherent Slough -Structure Exposed N/A -Texture (Char-wound Skin Appearance) Assessed -Moisture (Char-wound Skin Appearance Assessed ) -Color (Char-wound Skin Appearance) Assessed -Temperature (Char-wound Skin No Abnormality Appearance) (Pt Warm) -Tenderness on Palpation (Char-wound No Skin Appearance) -Ulcer Cleansing Rinsed/ Irrigated with Saline -Foul Odor after Cleansing No -Anesthetic Used 4% Lidocaine Solution #7 RIGHT DORSAL FOOT -Combined with other wound No -Current Size (cm) - Length 0.1 -Current Size (cm) - Width 0.1 -Current Size (cm) - Depth 0.1 -Total Square Cm 0.01 -Photo Taken No -Tunneling No -Undermining/Tunneling No -Circular Undermining No -Classification - Thickness Full Thickness without Exposed Support Structure -Exudate Amt Small (1-33%) -Exudate Type Serosanguineous -Wound Margin Distinct, Outline Attached -Granulation Amt Small (1-33%) -Granulation Quality [place] -Slough/Fibrin Yes -Necrosis Amt Small (1-33%) -Necrotic Tissue Type Adherent Slough -Structure Exposed N/A -Texture (Char-wound Skin Appearance) Assessed Localized Edema -Moisture (Char-wound Skin Appearance Assessed ) -Color (Char-wound Skin Appearance) Assessed -Temperature (Char-wound Skin No Abnormality Appearance) (Pt Warm) -Tenderness on Palpation (Char-wound No Skin Appearance) -Ulcer Cleansing Rinsed/ Irrigated with Saline -Foul Odor after Cleansing No -Anesthetic Used 4% Lidocaine Solution #6 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 INFERIOR -Combined with other wound No -Current Size (cm) - Length 0.7 -Current Size (cm) - Width 0.7 -Current Size (cm) - Depth 0.1 -Total Square Cm 0.49 -Photo Taken No -Tunneling No -Undermining/Tunneling No -Circular Undermining No -Classification - Thickness Full Thickness without Exposed Support Structure -Exudate Amt Small (1-33%) -Exudate Type Serosanguineous -Wound Margin Distinct, Outline Attached -Granulation Amt Medium (34-66%) -Granulation Quality [place] -Slough/Fibrin Yes -Necrosis Amt Medium (34-66%) -Necrotic Tissue Type Adherent Slough -Structure Exposed N/A -Texture (Char-wound Skin Appearance) Assessed -Moisture (Char-wound Skin Appearance Assessed ) -Color (Char-wound Skin Appearance) Assessed -Temperature (Char-wound Skin No Abnormality Appearance) (Pt Warm) -Tenderness on Palpation (Char-wound No Skin Appearance) -Ulcer Cleansing Rinsed/ Irrigated with Saline -Foul Odor after Cleansing No -Anesthetic Used 4% Lidocaine Solution [Edema Assessment] -Lower Limb Edema Present Yes -Right Calf (cm) 45 -Right Ankle (cm) 30.1 -Left Calf (cm) 49 -Left Ankle (cm) 30.1 WC - Nurse 2 - General Ulcer CM Notes Start: 12/06/17 10:41 Freq: Status: Active Protocol: Activity Type Activity Date Activity User E-Sign Co-Sign Detail Recorded Client Recorded Date Recorded By Document 12/13/17 11:04 DV [id number] 12/13/17 11:08 DV 12/13/17 11:04 Wound Center Nurse 2 [Procedure/Treatment] 9. L DORSAL FOOT -Time 11:06 -Correct Patient Yes -Correct Side, Site, Position Yes -Correct Procedure Yes -Procedure Performed Yes -Type of Procedure Debridement -Clinical Debridement Subcutaneous -Post Debridement Size (cm) - Length 0.4 -Post Debridement Size (cm) - Width 0.4 -Post Debridement Size (cm) - Depth 0.1 -Total Square Cm 0.16 -Wound/Ulcer Outcome Not Healed -Ulcer Cleansing Rinsed/ Irrigated with Saline -Foul Odor after Cleansing No -Bioengineered Tissue No -Bleeding Controlled with Pressure -Treatment Response Procedure Tolerated Well #7 RIGHT DORSAL FOOT -Time 11:06 -Correct Patient Yes -Correct Side, Site, Position Yes -Procedure Performed No -Post Debridement Size (cm) - Length 0.1 -Post Debridement Size (cm) - Width 0.1 -Post Debridement Size (cm) - Depth 0.1 -Total Square Cm 0.01 -Wound/Ulcer Outcome Healed- Epithelialized #6 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 INFERIOR -Time 11:05 -Correct Patient Yes -Correct Side, Site, Position Yes -Correct Procedure Yes -Procedure Performed Yes -Type of Procedure Debridement -Clinical Debridement Subcutaneous -Post Debridement Size (cm) - Length 0.5 -Post Debridement Size (cm) - Width 0.5 -Post Debridement Size (cm) - Depth 0.1 -Total Square Cm 0.25 -Wound/Ulcer Outcome Not Healed -Ulcer Cleansing Rinsed/ Irrigated with Saline -Foul Odor after Cleansing No -Bioengineered Tissue No -Bleeding Controlled with Pressure -Treatment Response Procedure Tolerated Well [See Physician Procedure note for Specifics] Pain Scale: 0-10 Numeric [Pain] -Is Patient Pain Free? Yes Musculoskeletal: Tenderness - With manipulation of ulcer sites Neurological: Sensory exam intact to light touch and pain Psych/Mental Status: Normal Affect, Appropriate Debridement Note Post-Debridement Measurements/Treatment WC - Nurse 2 - General Ulcer CM Notes Start: 12/06/17 10:41 Freq: Status: Active Protocol: Activity Type Activity Date Activity User E-Sign Co-Sign Detail Recorded Client Recorded Date Recorded By Document 12/06/17 11:51 DV [id number] 12/06/17 11:56 DV Document 12/13/17 11:04 DV [id number] 12/13/17 11:08 DV 12/06/17 12/13/17 11:51 11:04 Wound Center Nurse 2 9. L DORSAL FOOT -Time 11:06 -Correct Patient Yes -Correct Side, Site, Position Yes -Correct Procedure Yes -Procedure Performed Yes -Type of Procedure Debridement -Clinical Debridement Subcutaneous -Post Debridement Size (cm) - Length 0.4 -Post Debridement Size (cm) - Width 0.4 -Post Debridement Size (cm) - Depth 0.1 -Total Square Cm 0.16 -Wound/Ulcer Outcome Not Healed -Ulcer Cleansing Rinsed/ Irrigated with Saline -Foul Odor after Cleansing No -Bioengineered Tissue No -Bleeding Controlled with Pressure -Treatment Response Procedure Tolerated Well #7 RIGHT DORSAL FOOT -Time 11:52 11:06 -Correct Patient Yes Yes -Correct Side, Site, Position Yes Yes -Correct Procedure Yes -Procedure Performed Yes No -Type of Procedure Debridement -Clinical Debridement Subcutaneous -Post Debridement Size (cm) - Length 0.2 0.1 -Post Debridement Size (cm) - Width 0.4 0.1 -Post Debridement Size (cm) - Depth 0.1 0.1 -Total Square Cm 0.08 0.01 -Wound/Ulcer Outcome Not Healed Healed- Epithelialized -Ulcer Cleansing Rinsed/ Irrigated with Saline -Foul Odor after Cleansing No -Bioengineered Tissue No -Bleeding Controlled with Pressure -Treatment Response Procedure Tolerated Well #6 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 INFERIOR -Time 11:05 -Correct Patient Yes -Correct Side, Site, Position Yes -Correct Procedure Yes -Procedure Performed Yes -Type of Procedure Debridement -Clinical Debridement Subcutaneous -Post Debridement Size (cm) - Length 0.5 -Post Debridement Size (cm) - Width 0.5 -Post Debridement Size (cm) - Depth 0.1 -Total Square Cm 0.25 -Wound/Ulcer Outcome Not Healed -Ulcer Cleansing Rinsed/ Irrigated with Saline -Foul Odor after Cleansing No -Bioengineered Tissue No -Bleeding Controlled with Pressure -Treatment Response Procedure Tolerated Well Pain Scale: 0-10 Numeric Is Patient Pain Free? Yes Yes Wound debrided: Left dorsal foot Laterality: Left Type of Debridement: Excisional debridement Anesthesia Used: 4% Lidocaine Solution Depth: in the subcutaneous layer Percentage of wound debrided: 100 Instrument Used: #15 blade Tissue Removed: Adherent slough, fibrin, hyperkeratotic tissue Severity: Fat Layer Exposed Amount of bleeding with debridement: Mild Bleeding Controlled with: Pressure Patient tolerated procedure well - Additional Wound Wound debrided: Left lateral lower leg Laterality: Left Type of Debridement: Excisional debridement Anesthesia Used: 4% Lidocaine Solution Depth: in the subcutaneous layer Percentage of wound debrided: 100 Instrument Used: #15 blade Tissue Removed: Adherent slough, fibrin, hyperkeratotic tissue Severity: Fat Layer Exposed Amount of bleeding with debridement: Mild Bleeding Controlled with: Pressure Patient tolerated procedure: Patient tolerated procedure well Assessment/Plan Active Problems (Last Reviewed 10/25/17 @ 01:47 by Oziel Angel MD) Ulcer of left lower extremity with fat layer exposed (Acute) Assessment: Ulcer to left lower leg with fat layer exposed. DM II. Lower extremity edema Plan: Patient was again examined and evaluated today. Right dorsal foot ulcer appears healed today. The left dorsal foot ulcer and left lateral lower leg ulcer were debrided subcutaneously as noted in the clinical panel. Once the ulcers were debrided and carefully cleansed, the sites were then dressed with silvercel, followed by a dry sterile dressing along with tubigrips for compression. The dressing is to be changed in this manner daily. She will do this with the help of family friend, her son, and home health. It was again discussed the importance of keeping the compression from the toes all the way up to the knee. She has not been fully compliant with this in the past. She was instrcuted on the importance of keeping pressure off of all of the ulcer sites at all times while seated. She is to keep her legs raised while seated or lying down, as her son says she sits with her legs in dependent position. I again stressed the importance of compression with the patient's healing. She was instructed to wear the tubigrip and to keep her lower extremities elevated while seated. She is to continue with lasix as prescribed by Dr. Franco. She has only been taking half the recommended dose. She again stated that she has not increased her Lasix yet and I again explained at great length why this is so important. I recommended a high-protein diet for this patient to supplement ulcer healing. Patient was educated on all signs and symptoms of local and systemic infection, and was instructed to go to the ER immediately should she notice any. All other questions were answered to the patient's satisfaction. The patient will follow-up in clinic in 1 week to check on progress, or sooner if needed.
[2018-01-03 10:55] VITALS: BP 163/86; PULSE 71; RESP 18; TEMP 36.4
--- NOTE | 2018-01-03 13:55 | PN.PCM_ITS ---
(1) Ulcer of left lower extremity with fat layer exposed Status: Inactive Current Visit: No Code(s): L97.922 - Non-pressure chronic ulcer of unspecified part of left lower leg with fat layer exposed (2) Ulcer of right foot with fat layer exposed Status: Inactive Current Visit: No Code(s): L97.512 - Non-pressure chronic ulcer of other part of right foot with fat layer exposed (3) PVD (peripheral vascular disease) Status: Chronic Current Visit: No Code(s): I73.9 - Peripheral vascular disease, unspecified (4) Controlled diabetes mellitus Status: Chronic Current Visit: No Code(s): E11.9 - Type 2 diabetes mellitus without complications (5) Edema, lower extremity Status: Chronic Current Visit: No Code(s): R60.0 - Localized edema Type of Wound Chief Complaint: Left anterior lower leg ulceration that will not heal. History of Wound: This 72 year old female has significant history of diabetes and multiple sclerosis, bilateral traumatic leg wounds, and other comorbidities. She presents to office today after being referred by Dr. Franco. Per his note, the patient had finished up a prescription for keflex and is on rocephin. Patient states that she recently got a new bed. She says since she is short she had to get a stool in order to get onto her bed. She fell on the stool and got an ulcer on the left anterior leg. She says this happed close to two weeks ago and has not seen much of an improvment since. She has been dressing the ulcer site with bacitracin. She denies any purulence, malodor, redness around the ulcer. She also denies any feelings of nausea, vomiting, fever, or chills currently. Progress of Wound: Patient presents for follow up today for dorsal right foot ulcer and left lateral lower leg. Right dorsal foot ulcer reopened. She continues to try to keep compression to her lower extremity as instructed, but has been having trouble with this. She also admits to not taking the recommended dose of Lasix, even after discussions at prior visits. She currently denies any feelings of nausea, vomiting, fever, or chills. - Physical Exam Vital Signs Temp Pulse Resp BP 97.5 F L 71 18 163/86 H 01/03/18 10:55 01/03/18 10:55 01/03/18 10:55 01/03/18 10:55 General: Alert, Oriented x3, Cooperative, No apparent distress Extremities: Capillary Refill Less than 3 Seconds, No Calf Tenderness - Negative Sunita and Abraham sign, Diminished Peripheral Pulses - DP and PT pulses nonpalpable due to pitting lower extremity edema, Edema - Bilateral pitting lower extremity edema Skin: Ulcer/ Wound - Ulcer to right dorsal foot healed today and left lateral lower leg. Bases are noted to be a mixture of adherent slough, fibrin, granular tissue, as well as some slight surrounding hyperkeratotic tissue. There is no probing to bone, no tracking, no undermining, no purulence, no malodor, no extending cellulitis, no increase in warmth to either site at this time. Wound Measurements and Assessment WC - Nurse 1 - General Ulcer Measurement Start: 12/06/17 10:41 Freq: Status: Active Protocol: Activity Type Activity Date Activity User E-Sign Co-Sign Detail Recorded Client Recorded Date Recorded By Document 01/03/18 10:55 [facility] [id number] 01/03/18 11:08 [facility] 01/03/18 10:55 Wound Center Nurse 1 [Ulcer Assessment] #10 L DORSAL FOOT -Combined with other wound No -Current Size (cm) - Length 0.1 -Current Size (cm) - Width 0.1 -Current Size (cm) - Depth 0.1 -Total Square Cm 0.01 -Date of Last Picture (Recall this 01/03/18 field) -Photo Taken Yes -Epithelialization Large 67-100% -Tunneling No -Undermining/Tunneling No -Circular Undermining No -Exudate Amt Small (1-33%) -Exudate Type Serous -Structure Exposed None/Limited to Skin Breakdown -Texture (Char-wound Skin Appearance) Scarring -Moisture (Char-wound Skin Appearance Weeping ) Dry/Scaly -Color (Char-wound Skin Appearance) Assessed -Temperature (Char-wound Skin No Abnormality Appearance) (Pt Warm) -Tenderness on Palpation (Char-wound No Skin Appearance) -Ulcer Cleansing Rinsed/ Irrigated with Saline -Foul Odor after Cleansing No -Anesthetic Used 5% Lidocaine Gel #7 RIGHT DORSAL FOOT -Combined with other wound No -Current Size (cm) - Length 0.5 -Current Size (cm) - Width 0.4 -Current Size (cm) - Depth 0.1 -Total Square Cm 0.20 -Date of Last Picture (Recall this 01/03/18 field) -Photo Taken Yes -Epithelialization None Present -Tunneling No -Undermining/Tunneling No -Circular Undermining No -Exudate Amt Small (1-33%) -Exudate Type Serous -Wound Margin Distinct, Outline Attached -Granulation Amt Small (1-33%) -Granulation Quality Red -Slough/Fibrin Yes -Necrosis Amt Large (67-100%) -Necrotic Tissue Type Adherent Slough -Structure Exposed None/Limited to Skin Breakdown -Texture (Char-wound Skin Appearance) Localized Edema Scarring -Moisture (Char-wound Skin Appearance Assessed ) Weeping -Color (Char-wound Skin Appearance) Assessed Erythema -Temperature (Char-wound Skin No Abnormality Appearance) (Pt Warm) -Tenderness on Palpation (Char-wound No Skin Appearance) -Ulcer Cleansing Rinsed/ Irrigated with Saline -Foul Odor after Cleansing No -Anesthetic Used 5% Lidocaine Gel #9 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 INFERIOR -Combined with other wound No -Current Size (cm) - Length 1.3 -Current Size (cm) - Width 5.8 -Current Size (cm) - Depth 0.1 -Total Square Cm 7.54 -Date of Last Picture (Recall this 01/03/18 field) -Photo Taken Yes -Epithelialization Small 1-33% -Tunneling No -Undermining/Tunneling No -Circular Undermining No -Exudate Amt Small (1-33%) -Exudate Type Serous -Wound Margin Distinct, Outline Attached -Granulation Amt Medium (34-66%) -Granulation Quality Red -Slough/Fibrin Yes -Necrosis Amt Small (1-33%) -Necrotic Tissue Type Adherent Slough -Structure Exposed None/Limited to Skin Breakdown -Texture (Char-wound Skin Appearance) Scarring -Moisture (Char-wound Skin Appearance Weeping ) Dry/Scaly -Color (Char-wound Skin Appearance) Assessed Erythema -Temperature (Char-wound Skin No Abnormality Appearance) (Pt Warm) -Tenderness on Palpation (Char-wound No Skin Appearance) -Ulcer Cleansing Rinsed/ Irrigated with Saline -Foul Odor after Cleansing No -Anesthetic Used 5% Lidocaine Gel [Edema Assessment] -Lower Limb Edema Present Yes -Right Calf (cm) 45.8 -Right Ankle (cm) 30 -Left Calf (cm) 48.5 -Left Ankle (cm) 30 WC - Nurse 2 - General Ulcer CM Notes Start: 12/06/17 10:41 Freq: Status: Active Protocol: Activity Type Activity Date Activity User E-Sign Co-Sign Detail Recorded Client Recorded Date Recorded By Document 01/03/18 11:45 DV [id number] 01/03/18 11:47 DV 01/03/18 11:45 Wound Center Nurse 2 [Procedure/Treatment] #10 L DORSAL FOOT -Time 11:45 -Correct Patient Yes -Correct Side, Site, Position Yes -Procedure Performed No -Post Debridement Size (cm) - Length 0 -Post Debridement Size (cm) - Width 0 -Post Debridement Size (cm) - Depth 0 -Total Square Cm 0 -Wound/Ulcer Outcome Healed- Epithelialized #7 RIGHT DORSAL FOOT -Time 11:45 -Correct Patient Yes -Correct Side, Site, Position Yes -Correct Procedure Yes -Procedure Performed Yes -Type of Procedure Debridement -Clinical Debridement Subcutaneous -Post Debridement Size (cm) - Length 0.7 -Post Debridement Size (cm) - Width 1.0 -Post Debridement Size (cm) - Depth 0.1 -Total Square Cm 0.70 -Wound/Ulcer Outcome Not Healed -Ulcer Cleansing Rinsed/ Irrigated with Saline -Foul Odor after Cleansing No -Bioengineered Tissue No -Bleeding Controlled with Pressure -Offloading No -Treatment Response Procedure Tolerated Well #9 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 INFERIOR -Time 11:46 -Correct Patient Yes -Correct Side, Site, Position Yes -Correct Procedure Yes -Procedure Performed Yes -Type of Procedure Debridement -Clinical Debridement Subcutaneous -Post Debridement Size (cm) - Length 1.6 -Post Debridement Size (cm) - Width 5.5 -Post Debridement Size (cm) - Depth 0.2 -Total Square Cm 8.80 -Wound/Ulcer Outcome Not Healed -Ulcer Cleansing Rinsed/ Irrigated with Saline -Foul Odor after Cleansing No -Bioengineered Tissue No -Bleeding Controlled with Pressure -Offloading No -Treatment Response Procedure Tolerated Well [See Physician Procedure note for Specifics] Pain Scale: 0-10 Numeric [Pain] -Is Patient Pain Free? Yes Musculoskeletal: Tenderness - With manipulation of ulcer sites Neurological: Sensory exam intact to light touch and pain Psych/Mental Status: Normal Affect, Appropriate Debridement Note Post-Debridement Measurements/Treatment WC - Nurse 2 - General Ulcer CM Notes Start: 12/06/17 10:41 Freq: Status: Active Protocol: Activity Type Activity Date Activity User E-Sign Co-Sign Detail Recorded Client Recorded Date Recorded By Document 12/06/17 11:51 DV [id number] 12/06/17 11:56 DV Document 12/13/17 11:04 DV [id number] 12/13/17 11:08 DV Document 01/03/18 11:45 DV [id number] 01/03/18 11:47 DV 12/06/17 12/13/17 01/03/18 11:51 11:04 11:45 Wound Center Nurse 2 #10 L DORSAL FOOT -Time 11:06 11:45 -Correct Patient Yes Yes -Correct Side, Site, Position Yes Yes -Correct Procedure Yes -Procedure Performed Yes No -Type of Procedure Debridement -Clinical Debridement Subcutaneous -Post Debridement Size (cm) - Length 0.4 0 -Post Debridement Size (cm) - Width 0.4 0 -Post Debridement Size (cm) - Depth 0.1 0 -Total Square Cm 0.16 0 -Wound/Ulcer Outcome Not Healed Healed- Epithelialized -Ulcer Cleansing Rinsed/ Irrigated with Saline -Foul Odor after Cleansing No -Bioengineered Tissue No -Bleeding Controlled with Pressure -Treatment Response Procedure Tolerated Well #7 RIGHT DORSAL FOOT -Time 11:52 11:06 11:45 -Correct Patient Yes Yes Yes -Correct Side, Site, Position Yes Yes Yes -Correct Procedure Yes Yes -Procedure Performed Yes No Yes -Type of Procedure Debridement Debridement -Clinical Debridement Subcutaneous Subcutaneous -Post Debridement Size (cm) - Length 0.2 0.1 0.7 -Post Debridement Size (cm) - Width 0.4 0.1 1.0 -Post Debridement Size (cm) - Depth 0.1 0.1 0.1 -Total Square Cm 0.08 0.01 0.70 -Wound/Ulcer Outcome Not Healed Healed- Not Healed Epithelialized -Ulcer Cleansing Rinsed/ Rinsed/ Irrigated with Irrigated with Saline Saline -Foul Odor after Cleansing No No -Bioengineered Tissue No No -Bleeding Controlled with Pressure Pressure -Offloading No -Treatment Response Procedure Procedure Tolerated Well Tolerated Well #9 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 INFERIOR -Time 11:05 11:46 -Correct Patient Yes Yes -Correct Side, Site, Position Yes Yes -Correct Procedure Yes Yes -Procedure Performed Yes Yes -Type of Procedure Debridement Debridement -Clinical Debridement Subcutaneous Subcutaneous -Post Debridement Size (cm) - Length 0.5 1.6 -Post Debridement Size (cm) - Width 0.5 5.5 -Post Debridement Size (cm) - Depth 0.1 0.2 -Total Square Cm 0.25 8.80 -Wound/Ulcer Outcome Not Healed Not Healed -Ulcer Cleansing Rinsed/ Rinsed/ Irrigated with Irrigated with Saline Saline -Foul Odor after Cleansing No No -Bioengineered Tissue No No -Bleeding Controlled with Pressure Pressure -Offloading No -Treatment Response Procedure Procedure Tolerated Well Tolerated Well Pain Scale: 0-10 Numeric Is Patient Pain Free? Yes Yes Yes Wound debrided: Right dorsal foot Laterality: Right Type of Debridement: Excisional debridement Anesthesia Used: 4% Lidocaine Solution Depth: in the subcutaneous layer Percentage of wound debrided: 100 Instrument Used: 7mm curette Tissue Removed: Adherent slough, fibrin, hyperkeratotic tissue Severity: Fat Layer Exposed Amount of bleeding with debridement: Mild Bleeding Controlled with: Pressure Patient tolerated procedure well - Additional Wound Wound debrided: Left lateral lower leg Laterality: Left Type of Debridement: Excisional debridement Anesthesia Used: 4% Lidocaine Solution Depth: Down to and including healthy tissue Percentage of wound debrided: 100 Instrument Used: #15 blade Tissue Removed: Adherent slough, fibrin, hyperkeratotic tissue Severity: Fat Layer Exposed Amount of bleeding with debridement: Mild Bleeding Controlled with: Pressure Patient tolerated procedure: Patient tolerated procedure well Assessment/Plan Assessment: Ulcer to left lower leg with fat layer exposed. DM II. Lower extremity edema Plan: Patient was again examined and evaluated today. Right dorsal foot ulcer open back up. The left lateral lower leg ulcer and right dorsal foot ulcer were debrided subcutaneously as noted in the clinical panel. Once the ulcers were debrided and carefully cleansed, the sites were then dressed with silvercel, followed by a dry sterile dressing along with tubigrips for compression. The dressing is to be changed in this manner daily. She will do this with the help of family friend, her son, and home health. It was again discussed the importance of keeping the compression from the toes all the way up to the knee. She has not been fully compliant with this in the past and she admits to still not taking her Lasix as prescribed by her primary care doctor. She was instrcuted on the importance of keeping pressure off of all of the ulcer sites at all times while seated. She is to keep her legs raised while seated or lying down, as her son says she sits with her legs in dependent position. I again stressed the importance of compression with the patient's healing. She was instructed to wear the tubigrip and to keep her lower extremities elevated while seated. LEAS and venous doppler studies were reviewed at prior visit and patient will be referred to Dr. Adames with vascular. I recommended a high- protein diet for this patient to supplement ulcer healing. Patient was educated on all signs and symptoms of local and systemic infection, and was instructed to go to the ER immediately should she notice any. All other questions were answered to the patient's satisfaction. The patient will follow-up in clinic in 1 week to check on progress, or sooner if needed.
== END 2018-01-04 23:59 ==
LOC: WC 10:00
PROVIDERS: Family Provider Family Medicine Geriatric Medicine; PCP Family Medicine Geriatric Medicine; Referring Provider Podiatrist; Visit Provider Podiatrist
DX: E11.622 Type 2 diabetes mellitus with other skin ulcer (principal); L97.822 Non-pressure chronic ulcer of other part of left lower leg with fat layer exposed; E11.22 Type 2 diabetes mellitus with diabetic chronic kidney disease; N17.9 Acute kidney failure, unspecified; R60.0 Localized edema; E11.51 Type 2 diabetes mellitus with diabetic peripheral angiopathy without gangrene; E11.621 Type 2 diabetes mellitus with foot ulcer; L97.512 Non-pressure chronic ulcer of other part of right foot with fat layer exposed
CPT/HCPCS: 11042; 93923; 93970

== ENCOUNTER 2018-01-03 14:54 | Emergency (ER) | payer MEDICARE, SELFPAY ==
[2018-01-03 14:55] VITALS: BP 158/52; PULSE 76; RESP 28; TEMP 36.4; O2SAT 96; BMI 44.3
--- NOTE | 2018-01-03 15:06 | RAD_ITS ---
STUDY: X-RAY - UNILATERAL RIBS ( RIGHT ) WITH CHEST REASON FOR EXAM: Female, 72 years old. Pain following a fall. TECHNIQUE - RIBS: 4 view(s) of the ribs. TECHNIQUE - CHEST: Single PA view of the chest. COMPARISON: Comparison is made with prior chest radiograph dated December 16, 2017. FINDINGS - RIBS: Normal visualized ribs without a demonstrated fracture. FINDINGS - CHEST: The lungs are clear and expanded. There is no demonstrated pleural abnormality. Sternal cerclage wires and vascular clips are present from a prior sternotomy and coronary artery bypass graft procedure (CABG). Normal mediastinum and alee. Normal visualized pulmonary arteries. There is atherosclerotic calcification of the aortic arch with tortuosity. There are diffuse degenerative changes of the visualized thoracic spine. Normal visualized ribs, clavicles, and shoulders. There is no demonstrated abnormality of the visualized soft tissue structures of the upper abdomen. RAD/Ribs Uni Min 3V w/PA Chest IMPRESSION: RIBS: Normal x-ray examination of the ribs. CHEST: Normal x-ray examination of the chest. Electronically Signed: Milo Hughes MD at 16:05 EST Tel [phone], Service support ,
--- NOTE | 2018-01-03 15:06 | RAD_ITS ---
STUDY: X-RAY - RIGHT HAND REASON FOR EXAM: Female, 72 years old. Pain following a fall. TECHNIQUE: 3 view(s) of the hand. COMPARISON: None. FINDINGS: Normal radiocarpal articulation. Normal distal radioulnar joint. Normal visualized carpal bones. Normal carpal articulations Normal carpometacarpal articulation of the thumb. Normal second through fifth carpometacarpal joints. Normal metacarpi. Normal metacarpophalangeal joint of the thumb. Normal interphalangeal joint of the thumb. Normal proximal and distal phalanges of the thumb. Normal metacarpophalangeal joints of the second through fifth fingers. Normal proximal and distal interphalangeal joints of the second through fifth fingers. Normal phalanges of the second through fifth fingers. Soft tissue swelling. RAD/Hand Min 3 Views IMPRESSION: Soft tissue swelling. Electronically Signed: Milo Hughes MD at 16:02 EST Tel [phone], Service support ,
--- NOTE | 2018-01-03 15:13 | ED.DCSUM_ITS ---
- ER Visit Summary Date of Service: 01/03/18 Chief Complaint: Fall History of Present Illness: The patient is a 72 F presents to the emergency department after mechanical fall. Patient has chronic lymphedema. She is wearing postoperative shoes. She states she was getting out of her car and slipped. She fell, landing on her right side. She landed with her right hand underneath her and hit her right ribs. She did not strike her head. She denies loss of consciousness. The patient is on Xarelto for history of atrial fibrillation. She denies any shortness of breath. She denies other injury. She has not taken anything for pain. She was able to get herself back up, but noticed bleeding on her hand. Physical Examination: Vital signs reviewed General: Well-nourished, well-developed Head: Normocephalic, atraumatic Eyes: Pupils equal and reactive, extraocular muscles intact Neck, supple, no lymphadenopathy Heart: Regular rate and rhythm Respiratory: No distress, clear bilaterally, mild tenderness over the right lower lateral ribs without step-off Abdomen: Soft, nontender, nondistended, no peritoneal signs Back: Nontender Extremities: Contusion on the dorsum of the right hand with 2 skin tears, pain to palpation, normal pulses, no edema, no cords Skin: Normal color no rash Neuro: Alert and oriented, no focal or lateralizing deficits Test Results: [] Emergency Department Course and Treatment: The patient presents after mechanical fall. She does have skin tears of the right hand that are not amenable to suture closure. She was given oral analgesics. X-rays were obtained of the ribs, elbow, hand. There is no evidence of acute fracture. Patient's wound was dressed and cleaned. At this time, I do feel that she is safe for outpatient follow-up. She was counseled on concerning symptoms and reasons to return. She will be discharged home. Treatment Plan: [] Disposition: Discharge Impression: Right hand contusion with skin tear 2. Right rib contusion status post fall This note was generated with [employer] dictation software. It may contain incorrect words, spelling, and punctuation that were not noted in review of the chart prior to signing ED Disposition - Plan for ED Patient: Chief Complaint: Fall Instructions: ED Mechanical Fall, ED Avulsion Dermal Referrals: Octaviano Franco Chi, MD [Primary Care Provider] -
--- NOTE | 2018-01-03 15:18 | RAD_ITS ---
STUDY: X-RAY - RIGHT ELBOW REASON FOR EXAM: Female, 72 years old. Pain following a fall. TECHNIQUE: 3 view(s) of the elbow. COMPARISON: None. FINDINGS: Normal visualized humerus, radius and ulna. Normal radiocapitellar and ulnotrochlear articulations. The soft tissue structures are unremarkable. RAD/Elbow min 3 Views IMPRESSION: Normal x-ray examination of the elbow. Electronically Signed: Milo Hughes MD at 16:02 EST Tel [phone], Service support ,
[2018-01-03] MEDS: HYDROcodone Bitartrate/Apap 5/325 Tablet PO (15:19)
[2018-01-03 15:41] VITALS: RESP 20
--- OUTSIDE RECORDS SUMMARY | 2018-02-28 22:20 | XMS RPT_ITS ---
:1945 Author Organization OHIP Support Name Relationship Address Phone FEMI VIZCARRA Unavailable Unavailable + ROBIN, MONIKA Unavailable [address] + [place] [address] R Unavailable Unavailable Unavailable FEMI VIZCARRA Unavailable Unavailable + ROBIN, MONIKA Unavailable [address] + [place] [address] R Unavailable Unavailable Unavailable FEMI VIZCARRA Unavailable Unavailable + ROBIN, MONIKA Unavailable [address] + [place] [address] R Unavailable Unavailable Unavailable FEMI VIZCARRA Unavailable Unavailable + ROBIN, MONIKA Unavailable [address] + [place] [address] R Unavailable Unavailable Unavailable FEMI VIZCARRA Unavailable Unavailable + ROBIN, MONIKA Unavailable [address] + [place] [address] R Unavailable Unavailable Unavailable FEMI VIZCARRA Unavailable Unavailable + ROBIN, MONIKA Unavailable [address] + [place] [address] R Unavailable Unavailable Unavailable FEMI VIZCARRA Unavailable Unavailable + ROBIN, MONIKA Unavailable [address] + [place] [address] R Unavailable Unavailable Unavailable FEMI VIZCARRA Unavailable Unavailable + ROBIN, MONIKA Unavailable [address] + [place] [address] R Unavailable Unavailable Unavailable FEMI VIZCARRA Unavailable Unavailable + Robin, Monika Unavailable [address] + [place] [address] R Unavailable Unavailable Unavailable FEMI VIZCARRA Unavailable Unavailable + Robin, Monika Unavailable [address] + [place] [address] R Unavailable Unavailable Unavailable FEMI VIZCARRA Unavailable Unavailable + Robin, Monika Unavailable [address] + [place] [address] R Unavailable Unavailable Unavailable FEMI VIZCARRA Unavailable Unavailable + Robin, Monika Unavailable [address] + [place] [address] R Unavailable Unavailable Unavailable FEMI VIZCARRA Unavailable Unavailable + Robin, Monika Unavailable [address] + [place] [address] R Unavailable Unavailable Unavailable FEMI VIZCARRA Unavailable Unavailable + Robin, Monika Unavailable [address] + [place] [address] R Unavailable Unavailable Unavailable FEMI VIZCARRA Unavailable Unavailable + Robin, Monika Unavailable [address] + [place] [address] R Unavailable Unavailable Unavailable Robin, Monika Unavailable [address] + [place] [address] R Unavailable Unavailable Unavailable Robin, Monika Unavailable [address] + [place] [address] R Unavailable Unavailable Unavailable Robin, Monika Unavailable [address] + [place] [address] R Unavailable Unavailable Unavailable Robin, Monika Unavailable [address] + [place] [address] R Unavailable Unavailable Unavailable Robin, Monika Unavailable [address] + [place] [address] R Unavailable Unavailable Unavailable Robin, Monika Unavailable [address] + [place] [address] R Unavailable Unavailable Unavailable Robin, Monika Unavailable [address] + [place] [address] R Unavailable Unavailable Unavailable ROBIN, MONIKA Unavailable [address] + [place] [address] R Unavailable Unavailable Unavailable ROBIN, MONIKA Unavailable [address] + [place] [address] R Unavailable Unavailable Unavailable ROBIN, MONIKA Unavailable [address] + [place] [address] R Unavailable Unavailable Unavailable ROBIN, MONIKA Unavailable [address] + [place] [address] R Unavailable Unavailable Unavailable ROBIN, MONIKA Unavailable [address] + [place] [address] R Unavailable Unavailable Unavailable ROBIN, MONIKA Unavailable [address] + [place] [address] R Unavailable Unavailable Unavailable ROBIN, MONIKA Unavailable [address] + [place] [address] R Unavailable Unavailable Unavailable ROBIN, MONIKA Unavailable [address] + [place] [address] R Unavailable Unavailable Unavailable ROBIN, MONIKA Unavailable [address] + [place] [address] R Unavailable Unavailable Unavailable ROBIN, MONIKA Unavailable [address] + [place] [address] R Unavailable Unavailable Unavailable ROBIN, MONIKA Unavailable [address] + [place] [address] R Unavailable Unavailable Unavailable ROBIN, MONIKA Unavailable [address] + [place] [address] R Unavailable Unavailable Unavailable ROBIN, MONIKA Unavailable [address] + [place] [address] R Unavailable Unavailable Unavailable ROBIN, MONIKA Unavailable [address] + [place] [address] R Unavailable Unavailable Unavailable ROBIN, MONIKA Unavailable [address] + [place] [address] R Unavailable Unavailable Unavailable ROBIN, MONIKA Unavailable [address] + [place] [address] R Unavailable Unavailable Unavailable ROBIN, MONIKA Unavailable [address] + [place] [address] R Unavailable Unavailable Unavailable ROBIN, MONIKA Unavailable [address] + [place] [address] R Unavailable Unavailable Unavailable ROBIN, MONIKA Unavailable Unavailable + [place] [address] R Unavailable Unavailable Unavailable ROBIN, MONIKA Unavailable Unavailable + [place] [address] R Unavailable Unavailable Unavailable ROBIN, MONIKA Unavailable Unavailable + [place] [address] R Unavailable Unavailable Unavailable ROBIN, MONIKA Unavailable Unavailable + [place] [address] R Unavailable Unavailable Unavailable ROBIN, MONIKA Unavailable Unavailable + [place] [address] R Unavailable Unavailable Unavailable ROBIN, MONIKA Unavailable Unavailable + [place] [address] R Unavailable Unavailable Unavailable ROBIN, MONIKA Unavailable Unavailable + [place] [address] R Unavailable Unavailable Unavailable ROBIN, MONIKA Unavailable Unavailable + [place] [address] R Unavailable Unavailable Unavailable ROBIN, MONIKA Unavailable . + [place] [address] R Unavailable Unavailable Unavailable R Unavailable Unavailable Unavailable DOHENY, BISHOP Unavailable [address] + [place] [address] PIERRY, MONIKA Unavailable . + [place] [address] R Unavailable Unavailable Unavailable DOHENY, BISHOP Unavailable [address] + [place] [address] PIERRY, MONIKA Unavailable Unavailable + R Unavailable Unavailable Unavailable ROBIN, MONIKA Unavailable . + [place] [address] R Unavailable Unavailable Unavailable ROBIN, MONIKA Unavailable Unavailable + [place] [address] R Unavailable Unavailable Unavailable DOHENY, BISHOP Unavailable [address] + [place] [address] PIERRY, MONIKA Unavailable Unavailable + R Unavailable Unavailable Unavailable DOHENY, BISHOP Unavailable [address] + [place] [address] PIERRY, MONIKA Unavailable Unavailable + R Unavailable Unavailable Unavailable ROBIN, MONIKA Unavailable . + [place] [address] R Unavailable Unavailable Unavailable R Unavailable Unavailable Unavailable DOHENY, BISHOP Unavailable [address] + [place] [address] PIERRY, MONIKA Unavailable Unavailable + R Unavailable Unavailable Unavailable DOHENY, BISHOP Unavailable [address] + [place] [address] PIERRY, MONIKA Unavailable Unavailable + R Unavailable Unavailable Unavailable DOHENY, BISHOP Unavailable [address] + [place] [address] PIERRY, MONIKA Unavailable Unavailable + R Unavailable Unavailable Unavailable DOHENY, BISHOP Unavailable [address] + [place] [address] PIERRY, MONIKA Unavailable Unavailable + R Unavailable Unavailable Unavailable DOHENY, BISHOP Unavailable [address] + [place] [address] PIERRY, MONIKA Unavailable Unavailable + R Unavailable Unavailable Unavailable DOHENY, BISHOP Unavailable [address] + [place] [address] PIERRY, MONIKA Unavailable Unavailable + R Unavailable Unavailable Unavailable DOHENY, BISHOP Unavailable [address] + [place] [address] PIERRY, MONIKA Unavailable Unavailable + R Unavailable Unavailable Unavailable DOHENY, BISHOP Unavailable [address] + [place] [address] PIERRY, MONIKA Unavailable Unavailable + R Unavailable Unavailable Unavailable DOHENY, BISHOP Unavailable [address] + [place] [address] PIERRY, MONIKA Unavailable Unavailable + R Unavailable Unavailable Unavailable DOHENY, BISHOP Unavailable [address] + [place] [address] PIERRY, MONIKA Unavailable Unavailable + R Unavailable Unavailable Unavailable DOHENY, BISHOP Unavailable [address] + [place] [address] PIERRY, MONIKA Unavailable Unavailable + R Unavailable Unavailable Unavailable DOHENY, BISHOP Unavailable [address] + [place] [address] PIERRY, MONIKA Unavailable Unavailable + R Unavailable Unavailable Unavailable DOHENY, BISHOP Unavailable [address] + [place] [address] R Unavailable Unavailable Unavailable DOHENY, BISHOP Unavailable [address] + [place] [address] R Unavailable Unavailable Unavailable DOHENY, BISHOP Unavailable [address] + [place] [address] R Unavailable Unavailable Unavailable DOHENY, BISHOP Unavailable [address] + [place] [address] R Unavailable Unavailable Unavailable DOHENY, BISHOP Unavailable [address] + [place] [address] R Unavailable Unavailable Unavailable DOHENY, BISHOP Unavailable [address] + [place] [address] R Unavailable Unavailable Unavailable DOHENY, BISHOP Unavailable [address] + [place] [address] R Unavailable Unavailable Unavailable DOHENY, BISHOP Unavailable [address] + [place] [address] R Unavailable Unavailable Unavailable DOHENY, BISHOP Unavailable [address] + [place] [address] R Unavailable Unavailable Unavailable Care Team Providers Name Role Phone Eva Bear Attending Unavailable Eva Bear Referring Unavailable [place], Octaviano Chi Primary Care Unavailable Salvador, Octaviano Chi Attending Unavailable Salvador, Octaviano Chi Primary Care Unavailable Salvador, Octaviano Chi Attending Unavailable Salvador, Octaviano Chi Primary Care Unavailable Salvador, Octaviano Chi Attending Unavailable Salvador, Octaviano Chi Primary Care Unavailable Charlie Montesinos Attending Unavailable Salvador, Octaviano Chi Primary Care Unavailable Charlie Montesinos Referring Unavailable Valarie Bridges Attending Unavailable Salvador, Octaviano Chi Primary Care Unavailable Valarie Bridgse Referring Unavailable Salvador, Octaviano Chi Attending Unavailable Salvador, Octaviano Chi Primary Care Unavailable Salvador, Octaviano Chi Attending Unavailable Salvador, Octaviano Chi Primary Care Unavailable Salvador, Octaviano Chi Attending Unavailable Salvador, Octaviano Chi Referring Unavailable Salvador, Octaviano Chi Primary Care Unavailable Salvador, Octaviano Chi Attending Unavailable Salvador, Octaviano Chi Referring Unavailable Salvador, Octaviano Chi Primary Care Unavailable Bayron Dutton Attending Unavailable Salvador, Octaviano Chi Primary Care Unavailable Lisa Hutton Attending Unavailable [place], Octaviano Chi Primary Care Unavailable Gonzalo Beltrán Attending Unavailable Salvador, Octaviano Chi Attending Unavailable Salvador, Octaviano Chi Primary Care Unavailable Salvador, Octaviano Chi Attending Unavailable Salvador, Octaviano Chi Primary Care Unavailable Salvador, Octaviano Chi Attending Unavailable Salvador, Octaviano Chi Primary Care Unavailable Salvador, Octaviano Chi Primary Care Unavailable Corby Piper Attending Unavailable Salvador, Octaviano Chi Attending Unavailable Salvador, Octaviano Chi Primary Care Unavailable Salvador, Octaviano Chi Attending Unavailable Salvador, Octaviano Chi Primary Care Unavailable Salvador, Octaviano Chi Attending Unavailable Salvador, Octaviano Chi Referring Unavailable Salvador, Octaviano Chi Primary Care Unavailable Bayron Dutton Attending Unavailable Salvador, Octaviano Chi Primary Care Unavailable Salvador, Octaviano Chi Attending Unavailable Salvador, Octaviano Chi Primary Care Unavailable Salvador, Octaviano Chi Primary Care Unavailable Ashelfah, Ghasem Admitting Unavailable Sementi, Leigh Ann Attending Unavailable Ashelfah, Ghasem Admitting Unavailable Ashelfah, Ghasem Attending Unavailable Salvador, Octaviano Chi Primary Care Unavailable Ashelfah, Ghasem Consulting Unavailable Hodan Cortes Attending Unavailable Sebastian Hodan Referring Unavailable Salvador, Octaviano Chi Primary Care Unavailable Erasto Stuart Attending Unavailable Salvador, Octaviano Chi Referring Unavailable Ashelfah, Ghasem Admitting Unavailable Sementi, Leigh Ann Attending Unavailable Salvador, Octaviano Chi Primary Care Unavailable Sementi, Leigh Ann Consulting Unavailable Uriel Luna Attending Unavailable Salvador, Octaviano Chi Referring Unavailable Salvador, Octaviano Chi Primary Care Unavailable Kurtis Barajas Attending Unavailable Bayron Dutton Attending Unavailable [place], Octaviano Chi Primary Care Unavailable Hodan Cortes Attending Unavailable Salvador, Octaviano Chi Primary Care Unavailable Sebastian, Hodan Referring Unavailable Sebastian Hodan Attending Unavailable [place], Octaviano Chi Primary Care Unavailable Lisa Hutton Attending Unavailable Uriel Luna Attending Unavailable Moodispaw, Uriel Referring Unavailable Salvador, Octaviano Chi Primary Care Unavailable Salvador, Octaviano Chi Attending Unavailable Salvador, Octaviano Chi Referring Unavailable Salvador, Octaviano Chi Primary Care Unavailable Kurtis Barajas Attending Unavailable Archiejeancarlosyair Bharathiarmando Referring Unavailable Bayron Dutton Attending Unavailable Salvador, Octaviano Chi Primary Care Unavailable Uriel Luna Attending Unavailable Bayron Dutton Attending Unavailable Salvador, Octaviano Chi Primary Care Unavailable Onofre Boston Attending Unavailable Salvador, Octaviano Chi Referring Unavailable Salvador, Octaviano Chi Attending Unavailable Salvador, Octaviano Chi Primary Care Unavailable Bayron Dutton Attending Unavailable Salvador, Octaviano Chi Primary Care Unavailable SebastianHodan Attending Unavailable Sebastian, Hodan Referring Unavailable Salvador, Octaviano Chi Primary Care Unavailable Salvador, Octaviano Chi Attending Unavailable Salvador, Octaviano Chi Referring Unavailable Salvador, Octaviano Chi Primary Care Unavailable Bayron Dutton Attending Unavailable Salvador, Octaviano Chi Primary Care Unavailable Salvador, Octaviano Chi Attending Unavailable Salvador, Octaviano Chi Primary Care Unavailable Salvador, Octaviano Chi Attending Unavailable Salvador, Octaviano Chi Primary Care Unavailable Salvador, Octaviano Chi Attending Unavailable Salvador, Octaviano Chi Referring Unavailable Salvador, Octaviano Chi Primary Care Unavailable SebastianHodan Attending Unavailable Salvador, Octaviano Chi Primary Care Unavailable Sebastian Hodan Attending Unavailable Salvador, Octaviano Chi Primary Care Unavailable Sebastian Hodan Attending Unavailable Salvador, Octaviano Chi Primary Care Unavailable Salvador, Octaviano Chi Attending Unavailable Salvador, Octaviano Chi Primary Care Unavailable Salvador, Octaviano Chi Primary Care Unavailable Agyepong, Oziel Admitting Unavailable Jopperi, Douglas Attending Unavailable Agyepong, Oziel Admitting Unavailable Agyepong, Oziel Attending Unavailable Salvador, Octaviano Chi Primary Care Unavailable Agyepong, Oziel Consulting Unavailable Agyepong, Oziel Admitting Unavailable Jopperi, Douglas Attending Unavailable Salvador, Octaviano Chi Primary Care Unavailable Jopperi, Douglas Consulting Unavailable Agyepong, Oziel Admitting Unavailable Jopperi, Douglas Attending Unavailable Salvador, Octaviano Chi Primary Care Unavailable Jopperi, Douglas Consulting Unavailable Agyepong, Oziel Admitting Unavailable Jopperi, Douglas Attending Unavailable Salvador, Octaviano Chi Primary Care Unavailable Jopperi, Douglas Consulting Unavailable Onofre Marina Attending Unavailable Bayron Dutton Attending Unavailable Salvador, Octaviano Chi Primary Care Unavailable Onofre Marina Attending Unavailable Salvador, Octaviano Chi Attending Unavailable Salvador, Octaviano Chi Primary Care Unavailable Salvador, Octaviano Chi Attending Unavailable Salvador, Octaviano Chi Primary Care Unavailable Bayron Dutton Attending Unavailable Salvador, Octaviano Chi Primary Care Unavailable Bayron Dutton Referring Unavailable Femi Esposito Attending Unavailable Salvador, Octaviano Chi Primary Care Unavailable Salvador, Octaviano Chi Primary Care Unavailable Bayron Beach Attending Unavailable Salvador, Octaviano Chi Primary Care Unavailable Stevie, Preston Admitting Unavailable TereletskyNicanor Attending Unavailable StephanieAdalid Consulting Unavailable Stevie, Preston Admitting Unavailable Stevie, Preston Attending Unavailable Salvador, Octaviano Chi Primary Care Unavailable Stevie, Preston Consulting Unavailable Stevie, Preston Admitting Unavailable Tereletsky, Nicanor Attending Unavailable Salvador, Octaviano Chi Primary Care Unavailable Stephanie, Adalid Consulting Unavailable Tereletsky, Nicanor Consulting Unavailable Stevie, Preston Admitting Unavailable Tereletsky, Nicanor Attending Unavailable Salvador, Octaviano Chi Primary Care Unavailable Stephanie, Adalid Consulting Unavailable Tereletsky, Nicanor Consulting Unavailable Stevie, Preston Admitting Unavailable Tereletsky, Nicanor Attending Unavailable Salvador, Octaviano Chi Primary Care Unavailable Stephanie, Adalid Consulting Unavailable Tereletsky, Nicanor Consulting Unavailable Stevie, Preston Admitting Unavailable Tereletsky, Nicanor Attending Unavailable Salvador, Octaviano Chi Primary Care Unavailable Stephanie, Adalid Consulting Unavailable Tereletsky, Nicanor Consulting Unavailable Stevie, Preston Admitting Unavailable Tereletsky, Nicanor Attending Unavailable Salvador, Octaviano Chi Primary Care Unavailable Stephanie, Adalid Consulting Unavailable Tereletsky, Nicanor Consulting Unavailable Femi Esposito Attending Unavailable Femi Esposito Referring Unavailable Salvador, Octaviano Chi Primary Care Unavailable Salvador, Octaviano Chi Attending Unavailable Salvador, Octaviano Chi Primary Care Unavailable Salvador, Octaviano Chi Primary Care Unavailable Douglas Palmer Attending Unavailable Salvador, Octaviano Chi Primary Care Unavailable Bayron Basurto Attending Unavailable Bayron Dutton Attending Unavailable Bayron Dutton Referring Unavailable Salvador, Octaviano Chi Primary Care Unavailable PROBLEMS PROBLEMS DATE TYPE CONDITION / CODE ATTENDING STATUS SOURCE 01/17/2018 Unknown E11.622 - Type 2 Bayron Dutton Active [place] diabetes mellitus with Community other skin ulcer / Hospital E11.622(ICD-10) Repository 12/28/2017 Unknown 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 / Community G50.0(ICD-10) Hospital Repository 12/25/2017 Unknown N39.0 - Urinary tract Salvador, Octaviano Chi Active [facility] infection, site not Community specified / Hospital N39.0(ICD-10) Repository 11/21/2017 Unknown L03.115 - Cellulitis Douglas Bowman Active [place] of right lower limb / Community L03.115(ICD-10) Hospital Repository 10/13/2017 Unknown D64.9 - Anemia, Salvador, Octaviano Chi Active [place] unspecified / Community D64.9(ICD-10) Hospital Repository 10/05/2017 Unknown M25.519 - Pain in Salvador, Octaviano Chi Active [facility] unspecified shoulder / Community M25.519(ICD-10) Hospital Repository 10/04/2017 Unknown N18.3 - Chronic kidney Hodan Cortes Active [facility] disease, stage 3 Community (moderate) / Hospital N18.3(ICD-10) Repository 10/04/2017 Unknown R30.0 - Dysuria / SebastianHodan Active [facility] R30.0(ICD-10) [facility] Repository 06/18/2017 Unknown R60.0 - Localized Moodispaw, Active [facility] edema / R60.0(ICD-10) [facility] Repository 06/15/2017 Unknown K59.00 - Constipation, Salvador, Octaviano Chi Active [place] unspecified / Community K59.00(ICD-10) Hospital Repository 06/07/2017 Unknown N17.9 - Acute kidney Hodan Cortes Active [facility] failure, unspecified / Community N17.9(ICD-10) Hospital Repository 06/21/2017 Unknown R07.9 - Chest pain, Karl, Kurtis Active [place] unspecified / Community R07.9(ICD-10) Hospital Repository 06/21/2017 Unknown R07.89 - Other chest Karl, Kurtis Active [place] pain / R07.89(ICD-10) [facility] Repository 06/21/2017 Unknown I25.2 - 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, Latham Active [place] infarction / Community I25.2(ICD-10) Hospital Repository 05/21/2017 Unknown R94.31 - Abnormal Erasto Stuart Active [facility] electrocardiogram Community [ECG] [EKG] / Hospital R94.31(ICD-10) Repository 03/15/2017 Unknown E86.0 - Dehydration / Salvador, Octaviano Chi Active [place] E86.0(ICD-10) [facility] Repository 03/05/2017 Unknown L03.119 - Cellulitis Salvador, Octaviano Chi Active [facility] of unspecified part of Community limb / L03.119(ICD-10) Hospital Repository 02/27/2017 Unknown Z00.00 - Encounter for Yuliana, Active [facility] general adult medical Valarie M Community examination without Hospital abnormal findings / Repository Z00.00(ICD-10) 01/25/2017 Unknown E11.9 - Type 2 Salvador, Octaviano Chi Active [place] diabetes mellitus Community without complications Hospital / E11.9(ICD-10) Repository 01/25/2017 Unknown E78.4 - Other Salvador, Octaviano Chi Active [place] hyperlipidemia / Community E78.4(ICD-10) Hospital Repository 01/25/2017 Unknown I10 - Essential Salvador, Octaviano Chi Active [facility] (primary) hypertension Community / I10(ICD-10) Hospital Repository PROCEDURES PROCEDURES No Procedure Records FoundRESULTS RESULTS Observed: 01/14/2018 Status: F Source: [place] CULTURE, URINE 3:10 PM [facility] REPOSITORY Urine Culture ORGANISM 1: Presumptive E. coli [place] Count >100,000 Presumptive E. coli: REACTION Amoxacillin/Clavulanic Acid $ 4 S Ampicillin $ 4 S Ampicillin/Sulbactam $ <=2 S Cefazolin $ <=4 S Cefepime $ <=1 S Ceftriaxone $ <=1 S Ciprofloxacin $ >=4 R ESBL - Ertapenim $$$ <=0.5 S Gentamicin $ <=1 S Imipenem *NF <=0.25 S Levofloxacin $ >=8 R Nitrofurantoin $ <=16 S Piperacillin/Tazobactam $$ <=4 S Tobramycin $ <=1 S Trimethoprim/Sulfametho $ <=20 S (NF) indicates non-formulary drug at [facility]. Approval by Infectious Disease Specialist required before non-formulary drugs may be ordered and/or dispensed. Performed By: #### M100.0650 #### [facility] [address] [place], [address] EMERGENCY DEPARTMENT Observed: 01/03/2018 Status: F Source: [place] SUMMARY 7:03 PM [facility] REPOSITORY [facility] Medical Records Department [address] [place] [address] Emergency Department Summary 01/03/18 1512 MR#: [id number] Acct: [id number] Name: NIKKI VIZCARRA Rep #: [id number] : 1945 72 From: Bayron Basurto MD PCP: Octaviano Franco MD, Chi Status: DEP ER - ER Visit Summary Date of Service: 01/03/18 Chief Complaint: Fall History of Present Illness: The patient is a 72 F presents to the emergency department after mechanical fall. Patient has chronic lymphedema. She is wearing postoperative shoes. She states she was getting out of her car and slipped. She fell, landing on her right side. She landed with her right hand underneath her and hit her right ribs. She did not strike her head. She denies loss of consciousness. The patient is on Xarelto for history of atrial fibrillation. She denies any shortness of breath. She denies other injury. She has not taken anything for pain. She was able to get herself back up, but noticed bleeding on her hand. Physical Examination: Vital signs reviewed General: Well-nourished, well-developed Head: Normocephalic, atraumatic Eyes: Pupils equal and reactive, extraocular muscles intact Neck, supple, no lymphadenopathy Heart: Regular rate and rhythm Respiratory: No distress, clear bilaterally, mild tenderness over the right lower lateral ribs without step-off Abdomen: Soft, nontender, nondistended, no peritoneal signs Back: Nontender Extremities: Contusion on the dorsum of the right hand with 2 skin tears, pain to palpation, normal pulses, no edema, no cords Skin: Normal color no rash Neuro: Alert and oriented, no focal or lateralizing deficits Test Results: [] Emergency Department Course and Treatment: The patient presents after mechanical fall. She does have skin tears of the right hand that are not amenable to suture closure. She was given oral analgesics. X-rays were obtained of the ribs, elbow, hand. There is no evidence of acute fracture. Patient's wound was dressed and cleaned. At this time, I do feel that she is safe for outpatient follow-up. She was counseled on concerning symptoms and reasons to return. She will be discharged home. Treatment Plan: [] Disposition: Discharge Impression: Right hand contusion with skin tear 2. Right rib contusion status post fall This note was generated with [employer] software. It may contain incorrect words, spelling, and punctuation that were not noted in review of the chart prior to signing ED Disposition - Plan for ED Patient: Chief Complaint: Fall Instructions: ED Mechanical Fall, ED Avulsion Dermal Referrals: Octaviano Franco Chi, MD [Primary Care Provider] - What to do if you have Problems For any increased pain, shortness of breath, bleeding, nausea or vomiting, chest pain, or any unexpected problems, contact your Primary Care Provider. Call [facility] ([phone]) or report to the closest Emergency Room. Call 911 if necessary. 01/03/18 1903 <Electronically signed by Bayron Basurto MD> Date Bayron Basurto MD Cosigner Signature (If Indicated): Date CC: Octaviano Franco MD HAND MIN 3 VIEWS Observed: 01/03/2018 Status: F Source: [place] 3:07 PM [facility] Imaging Services [address] [place] [id number] Hand Min 3 Views MR#: [id number] Acct: [id number] Name: NIKKI VIZCARRA Rep #: [id number] : 1945 F 72 From: Milo Hughes MD PCP: Octaviano Franco MD, Chi Status: REG ER Study: Hand Min 3 Views Date of Exam: 01/03/18 Exam# [id number] Ordering Dr: Bayron Basurto MD STUDY: X-RAY - RIGHT HAND REASON FOR EXAM: Female, 72 years old. Pain following a fall. TECHNIQUE: 3 view(s) of the hand. COMPARISON: None. FINDINGS: Normal radiocarpal articulation. Normal distal radioulnar joint. Normal visualized carpal bones. Normal carpal articulations Normal carpometacarpal articulation of the thumb. Normal second through fifth carpometacarpal joints. Normal metacarpi. Normal metacarpophalangeal joint of the thumb. Normal interphalangeal joint of the thumb. Normal proximal and distal phalanges of the thumb. Normal metacarpophalangeal joints of the second through fifth fingers. Normal proximal and distal interphalangeal joints of the second through fifth fingers. Normal phalanges of the second through fifth fingers. Soft tissue swelling. RAD/Hand Min 3 Views IMPRESSION: Soft tissue swelling. Electronically Signed: Milo Hughes MD at 16:02 EST Tel [phone], Service support , CC: Bayron Basurto MD; Octaviano Franco MD Induction Machine Setter: Signed ELBOW MIN 3 VIEWS Observed: 01/03/2018 Status: F Source: [place] 3:07 PM [facility] Imaging Services [address] [place] [address] Elbow min 3 Views MR#: [id number] Acct: [id number] Name: NIKKI VIZCARRA Rep #: [id number] : 1945 F 72 From: Milo Hughes MD PCP: Octaviano Franco MD, Chi Status: REG ER Study: Elbow min 3 Views Date of Exam: 01/03/18 Exam# [id number] Ordering Dr: Bayron Basurto MD STUDY: X-RAY - RIGHT ELBOW REASON FOR EXAM: Female, 72 years old. Pain following a fall. TECHNIQUE: 3 view(s) of the elbow. COMPARISON: None. FINDINGS: Normal visualized humerus, radius and ulna. Normal radiocapitellar and ulnotrochlear articulations. The soft tissue structures are unremarkable. RAD/Elbow min 3 Views IMPRESSION: Normal x-ray examination of the elbow. Electronically Signed: Milo Hughes MD at 16:02 EST Tel [phone], Service support , CC: Bayron Basurto MD; Octaviano Franco MD Induction Machine Setter: Signed RIBS UNI MIN 3V Observed: 01/03/2018 Status: F Source: [place] W/PA CHEST 3:07 PM [facility] Imaging Services [address] [place] [address] Ribs Uni Min 3V w/PA Chest MR#: [id number] Acct: [id number] Name: NIKKI VIZCARRA Rep #: [id number] : 1945 F 72 From: Milo Hughes MD PCP: Octaviano Franco MD, Chi Status: REG ER Study: Ribs Uni Min 3V w/PA Chest Date of Exam: 01/03/18 Exam# [id number] Ordering Dr: Bayron Basurto MD STUDY: X-RAY - UNILATERAL RIBS ( RIGHT ) WITH CHEST REASON FOR EXAM: Female, 72 years old. Pain following a fall. TECHNIQUE - RIBS: 4 view(s) of the ribs. TECHNIQUE - CHEST: Single PA view of the chest. COMPARISON: Comparison is made with prior chest radiograph dated December 16, 2017. FINDINGS - RIBS: Normal visualized ribs without a demonstrated fracture. FINDINGS - CHEST: The lungs are clear and expanded. There is no demonstrated pleural abnormality. Sternal cerclage wires and vascular clips are present from a prior sternotomy and coronary artery bypass graft procedure (CABG). Normal mediastinum and alee. Normal visualized pulmonary arteries. There is atherosclerotic calcification of the aortic arch with tortuosity. There are diffuse degenerative changes of the visualized thoracic spine. Normal visualized ribs, clavicles, and shoulders. There is no demonstrated abnormality of the visualized soft tissue structures of the upper abdomen. RAD/Ribs Uni Min 3V w/PA Chest IMPRESSION: RIBS: Normal x-ray examination of the ribs. CHEST: Normal x-ray examination of the chest. Electronically Signed: Milo Hughes MD at 16:05 EST Tel [phone], Service support , CC: Bayron Basurto MD; Octaviano Franco MD Induction Machine Setter: Signed EMERGENCY DEPARTMENT Observed: 12/28/2017 Status: F Source: [place] SUMMARY 3:52 PM [facility] Medical Records Department [address] [place] [address] Emergency Department Summary 12/28/17 1312 MR#: [id number] Acct: [id number] Name: NIKKI VIZCARRA Rep #: [id number] : 1945 72 From: Douglas Palmre DO PCP: Octaviano Franco MD, Chi Status: DEP ER - ER Visit Summary Date of Service: 12/28/17 Chief Complaint: Trigeminal neuralgia pain History of Present Illness: The patient is a 72 F who presents with trigeminal neuralgia pain that has been constant for the past 2 weeks. Patient states the pain has gradually gotten worse. Patient describes the pain is sharp. Patient states the pain is worse with anything she does. Patient states nothing is help with the pain. Patient states she is on Neurontin for her pain. Patient denies any fevers or chills. Patient denies any difficulty swallowing. Patient denies any sore throat. Physical Examination: Vital signs are stable. Patient is afebrile. Patient is in no acute distress. Oral mucosa is pink and moist. Tympanic membranes are clear bilaterally. Pupils are equal, round, reactive to light bilaterally. Extraocular muscles are intact. There is tenderness over the trigeminal nerve anterior to the right ear. There is no erythema or edema noted. Neck is supple. Trachea is midline. There is no JVD noted. Heart was regular rate and rhythm. Lungs are clear and equal bilaterally. There is good respiratory effort noted. Abdomen is soft and nontender. Cranial nerves II through XII are intact. There are no focal motor or sensory deficits noted. The remaining physical exam is within normal limits. Emergency Department Course and Treatment: Patient was given a dose of morphine here. Patient felt better on reevaluation. Patient was given a prescription for short course of [place]. Patient was instructed to follow-up with her primary care physician in 5-7 days. Patient understood and was agreeable with the plan. All questions were answered. Disposition: Discharged home Impression: Trigeminal neuralgia This note was generated with [employer]te[employer] dictation software. It may contain incorrect words, spelling, and punctuation that were not noted in review of the chart prior to signing ED Disposition - Plan for ED Patient: Disposition: Home or Assisted Living Chief Complaint: Other, Pain/Inj Diagnosis: Trigeminal neuralgia of right side of face Instructions: ED Chronic Pain Management Prescriptions: Hydrocodone Bitart/Apap 5-325 [[place] 5MG-325MG] 1 tab PO Q6H PRN PRN 3 Days #10 tab PRN Reason: Pain Referrals: Octaviano Farnco Chi, MD [Primary Care Provider] - Benoit Martínez MD [STAFF PHYSICIAN] - What to do if you have Problems For any increased pain, shortness of breath, bleeding, nausea or vomiting, chest pain, or any unexpected problems, contact your Primary Care Provider. Call [facility] ([phone]) or report to the closest Emergency Room. Call 911 if necessary. 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 Approval by Infectious Disease Specialist required before non-formulary drugs may be ordered and/or dispensed. Performed By: #### [id number] #### [facility] [address] [place], [address] DISCHARGE SUMMARY Observed: 12/23/2017 Status: F Source: [place] 10:32 AM [facility] Medical Records Department [address] [place] [address] Discharge Summary 12/23/17 1014 MR#: [id number] Acct: [id number] Name: NIKKI VIZCARRA Rep #: [id number] : 1945 72 From: Nicanor Hoyt DO PCP: Salvador HATCH,Octaviano Chi Status: DIS IN Y Location: MS3 [id number] 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 #11 MS #12 somnolence secondary to gabapentin usage - Secondary Discharge Diagnosis Chronic Problems (Last Updated 12/16/17 @ 09:33 by Douglas Bowman DO) PVD (peripheral vascular disease) (Chronic) Controlled diabetes mellitus (Chronic) Edema, lower extremity (Chronic) Presence of stent in coronary artery (Chronic) PTCA/stent to CX; PTCA/Stent PTCA/stent to prox RCA 05/06; PTCA/LILY in mid to distal RCA 08/29/12 Atherosclerotic heart disease of [place] coronary artery without angina pectoris (Chronic) PTCA/stent to CX; PTCA/Stent PTCA/stent to prox RCA 05/06; PTCA/LILY in mid to distal RCA 08/29/12; CABG x2 ARREGUIN tp LAD and SVG to OM2 01/02/11 S/P CABG (coronary artery bypass graft) (Chronic 01/02/11) CABG x2 ARREGUIN tp LAD and SVG to OM2 01/02/11 Paroxysmal atrial fibrillation (Chronic) Hyperlipidemia (Chronic) Hypertension (Chronic) Hospital Course and Treatment Operations: None Procedures: None Summary of Care Provided: The patient is a 72 year old F room at [facility] after sustaining a fall at home. Patient was an inconsistent informant, there was a suspicion of somnolence from gabapentin which that the patient takes chronically. Examination in the emergency room revealed the patient to be oriented x1, patient had been seen the night before in the emergency department at [facility] and treated for cellulitis of the left leg with doxycycline. CT of the head was carried out it showed no acute findings, white blood cell count was elevated at 24, creatinine was 1.61. Patient was given IV vancomycin and admitted to [place] [address]. Patient was felt not to have sepsis. Patient's mental status improved during her hospital stay, she was seen in consultation by infectious diseases and was seen by PT, OT, and speech therapy due to expressive language defects which appeared to be chronic in nature. Patient had a severe flareup of her chronic trigeminal neuralgia in her right face, her Neurontin was briefly increased but she became somnolent on this medication and Tegretol was added and finally the patient was placed on IV Decadron. She received outpatient corticosteroid injections in her right face but due to the fact that she had just completed 1 2 weeks prior, she was not able to have another facial injection. Conversation was carried out with the patient's son who lives with her, I expressed my concern that the patient was taken to much Neurontin at home and at the time of her discharge, her dose of Neurontin was decreased. Patient's Tegretol was also stopped after 48 hours. MRI of the brain did not show any evidence of acute stroke-it was noted that the patient had severe expressive language defects and was seen by speech therapy, it appears that the patient had these before admission but they became worse during the time she was in the hospital. Physical exam: On examination she appeared in good health and spirits. Vital signs as documented. Skin warm and dry and without overt rashes. Neck without JVD. Lungs clear. Heart exam notable for regular rhythm, normal sounds and absence of murmurs, rubs or gallops. Abdomen unremarkable and without evidence of organomegaly, masses, or abdominal aortic enlargement. Extremities-there is some redness noted of the left lower leg, there are chronic edematous changes of both lower legs. Neuro: Patient exhibits expressive language defects with word searching, cranial nerves II through XII are grossly intact, no focal motor deficits were noted. Psych: Patient was alert and oriented x3, she did not appear to be anxious or depressed. On 12/21/17, patient was seen and examined felt to be in stable condition for discharge home, patient did not want to go to correction facility and it was felt that it was not strictly necessary as there were multiple family members she lives with at her home. - Physical Exam Vital Signs Temp Pulse Resp BP Pulse Ox 99.8 F H 68 18 142/88 H 98 12/21/17 14:33 12/21/17 14:36 12/21/17 14:33 12/21/17 14:33 12/21/17 14:33 Oxygen Delivery Method Room Air Weight: 98 kg Body Mass Index (BMI) 42.2 Finger Stick Blood Glucose 187 Intake and Output for Last 24 Hours Intake Total 800 / 800 Balance 800 / 800 Microbiology Past 72 Hours 12/16/17 05:15 Blood Culture - Final Blood Culture (Wb) - Left Forearm No growth in 5 days. 12/16/17 05:10 Blood Culture - Final Blood Culture (Wb) - Right Hand No growth in 5 days. Discharge Activity: Return to Normal Activity Weight Bearing Status: Weight bearing as tolerated - with walker Home Medications: Medications to take at Discharge Docusate Sodium [Colace] 100 mg PO DAILY PRN 05/10/17 Magnesium Oxide 400 mg PO BID 05/10/17 Pantoprazole Sodium [Protonix] 40 mg PO DAILY 05/10/17 Rivaroxaban [Xarelto] 15 mg PO DAILY 05/10/17 metoprolol tartrate 50 mg tablet 50 mg PO BID #180 tab 09/18/17 amiodarone 200 mg tablet 200 mg PO DAILY #90 tab 10/10/17 Duloxetine HCl 60 mg PO DAILY 10/24/17 Acetaminophen [Tylenol Tablet] 1,000 mg PO Q8 tablet 10/27/17 Glucerna Shake 120 ml PO 4X/DAY liquid 10/27/17 Ferrous Sulfate 325 mg PO DAILY@0800 11/22/17 Acetaminophen [Tylenol Tablet] 650 mg PO Q6H PRN PRN tablet 12/21/17 Cephalexin [Keflex] 250 mg PO Q8 #15 capsule 12/21/17 Furosemide 40 mg PO DAILY #1 tab 12/21/17 Gabapentin [Neurontin] 600 mg PO BIDCM #60 tablet 12/21/17 Nystatin 250,000 unit PO 4X/DAY #100 ml 12/21/17 Potassium Chloride [Klor-Con] 20 meq PO DAILY #1 packet 12/21/17 Following Prescrptions Were Given to Patient: Cephalexin [Keflex] 250 mg PO Q8 #15 capsule Furosemide 40 mg PO DAILY #1 tab Potassium Chloride [Klor-Con] 20 meq PO DAILY #1 packet Gabapentin [Neurontin] 600 mg PO BIDCM #60 tablet Nystatin 250,000 unit PO 4X/DAY #100 ml Primary Care Physician: Octaviano Franco Chi, MD [Primary Care Provider] - Please follow up with your Primary Care Physician in: in 1- 2 weeks Disposition: Home with Home Health Minutes spent on discharge:: 32 Patient Condition:: Stable Medical Necessity - Tobacco Use Smoking Status: Former smoker Meaningful Use Info Meaningful Use Diagnoses (Choose all that apply): None applicable Code Visit Inpatient E AND M: 18496 Disch Hosp 12/23/17 1032 <Electronically signed by Nicanor Hoyt DO> Date Nicanor Hoyt DO Cosigner Signature (if applicable): Date CC: Nicanor Hoyt DO; Octaviano Franco MD Signed DISCHARGE INSTRUCTION Observed: 12/21/2017 Status: F Source: [place] 5:02 PM [facility] Medical Records Department [address] [place] [address] Instructions for Home/Discharge Instructions 12/21/17 1701 MR#: [id number] Acct: [id number] Name: NIKKI VIZCARRA Rep #: [id number] : 1945 72 From: Nicanor Hoyt DO PCP: Salvador HATCH,Xsilon Status: ADM IN You will use the following diet at home:: No restrictions Your food should be the consistency of: Regular Your liquids should be the consistency of: Regular/Thin Discharge Activity: Return to Normal Activity Weight Bearing Status: Weight bearing as tolerated - with walker Allergies/Adverse Reactions: Allergies ciprofloxacin [From Cipro] Allergy (Verified 12/16/17 03:15) Hives ciprofloxacin HCl [From Cipro] Allergy (Verified 12/16/17 03:15) Hives Latex, Natural Rubber Allergy (Verified 12/16/17 03:15) Rash Penicillins [PCN] Allergy (Verified 12/16/17 03:15) Hives codeine Adverse Reaction (Unknown, Verified 12/16/17 03:15) Unknown adhesive tape Adverse Reaction (Verified 12/16/17 03:15) Rash Medications to take at Discharge Docusate Sodium [Colace] 100 mg PO DAILY PRN 05/10/17 Magnesium Oxide 400 mg PO BID 05/10/17 Pantoprazole Sodium [Protonix] 40 mg PO DAILY 05/10/17 Rivaroxaban [Xarelto] 15 mg PO DAILY 05/10/17 metoprolol tartrate 50 mg tablet 50 mg PO BID #180 tab 09/18/17 amiodarone 200 mg tablet 200 mg PO DAILY #90 tab 10/10/17 Duloxetine HCl 60 mg PO DAILY 10/24/17 Acetaminophen [Tylenol Tablet] 1,000 mg PO Q8 tablet 10/27/17 Glucerna Shake 120 ml PO 4X/DAY liquid 10/27/17 Ferrous Sulfate 325 mg PO DAILY@0800 11/22/17 Acetaminophen [Tylenol Tablet] 650 mg PO Q6H PRN PRN tablet 12/21/17 Cephalexin [Keflex] 250 mg PO Q8 #15 capsule 12/21/17 Furosemide 40 mg PO DAILY #1 tab 12/21/17 Gabapentin [Neurontin] 600 mg PO BIDCM #60 tablet 12/21/17 Nystatin 250,000 unit PO 4X/DAY #100 ml 12/21/17 Potassium Chloride [Klor-Con] 20 meq PO DAILY #1 packet 12/21/17 The following prescriptions were given: Cephalexin [Keflex] 250 mg PO Q8 #15 capsule Furosemide 40 mg PO DAILY #1 tab Potassium Chloride [Klor-Con] 20 meq PO DAILY #1 packet Gabapentin [Neurontin] 600 mg PO BIDCM #60 tablet Nystatin 250,000 unit PO 4X/DAY #100 ml Primary Care Physician: Octaviano Franco Chi, MD [Primary Care Provider] - Please follow up with your Primary Care Physician in: in 1- 2 weeks Test Results: Test results from this visit will be discussed in further detail at your follow-up appointment, if applicable. 12/21/17 1702 <Electronically signed by Nicanor Hoyt DO> Date Nicanor Hoyt DO CC: Adalid Brown MD; Octaviano Franco MD BEDSIDE GLUCOSE Collected: 12/21/2017 Status: F Source: [place] 4:55 PM [facility] TYPE CODE TESTS RESULT OUT OF REFERENCE UNITS RANGE LAB L501.080 70-110 mg/dL High BEDSIDE GLU 137 Result Comment: MANAGEMENT OF PATIENT CARE PER NURSING PROTOCOL Performed By: #### L501.080 #### [facility] Point of Care [address] [place] [address] BEDSIDE GLUCOSE Collected: 12/21/2017 Status: F Source: [place] 12:13 PM [facility] TYPE CODE TESTS RESULT OUT OF REFERENCE UNITS RANGE LAB L501.080 70-110 mg/dL High BEDSIDE GLU 226 Result Comment: MANAGEMENT OF PATIENT CARE PER NURSING PROTOCOL Performed By: #### L501.080 #### [facility] Point of Care [address] [place] [address] BEDSIDE GLUCOSE Collected: 12/21/2017 Status: F Source: [place] 6:27 AM [facility] TYPE CODE TESTS RESULT OUT OF REFERENCE UNITS RANGE LAB L501.080 70-110 mg/dL High BEDSIDE GLU 175 Result Comment: MANAGEMENT OF PATIENT CARE PER NURSING PROTOCOL Performed By: #### L501.080 #### [facility] Point of Care [address] [place] [address] BEDSIDE GLUCOSE Collected: 12/20/2017 Status: F Source: [place] 10:45 PM [facility] TYPE CODE TESTS RESULT OUT OF REFERENCE UNITS RANGE LAB L501.080 70-110 mg/dL High BEDSIDE GLU 172 Result Comment: MANAGEMENT OF PATIENT CARE PER NURSING PROTOCOL Performed By: #### L501.080 #### [facility] Point of Care [address] [place] [address] BEDSIDE GLUCOSE Collected: 12/20/2017 Status: F Source: [place] 4:42 PM [facility] TYPE CODE TESTS RESULT OUT OF REFERENCE UNITS RANGE LAB L501.080 70-110 mg/dL High BEDSIDE GLU 157 Result Comment: MANAGEMENT OF PATIENT CARE PER NURSING PROTOCOL Performed By: #### L501.080 #### [facility] Point of Care [address] [place] [address] BRAIN WITHOUT Observed: 12/20/2017 Status: F Source: [place] CONTRAST 1:36 PM [facility] Imaging Services [address] [place] [address] Brain without Contrast MR#: [id number] Acct: [id number] Name: NIKKI VIZCARRA Rep #: [id number] : 1945 F 72 From: Ryan Roman MD PCP: Salvador HATCH,Octaviano Logan Status: ADM IN Study: Brain without Contrast Date of Exam: 12/20/17 Exam# [id number] Ordering Dr: Nicanor Hoyt DO STUDY: MRI BRAIN WITHOUT CONTRAST REASON FOR EXAM: Female, 72 years old. Aaphasia following fall TECHNIQUE: Standardized multiplanar fat and water weighted pulse sequences were obtained. COMPARISON: September 11, 2015. FINDINGS: Advanced atrophy and periventricular white matter ischemic changes without mass effect or restricted diffusion... Normal bilateral basal ganglia. Normal thalami. There is no extra-axial fluid accumulation. Normal flow voids within the major intracranial circulation suggesting patency by spin echo criteria. Normal sella turcica, pituitary gland, infundibular stalk, optic chiasm and hypothalamus. Normal tectal plate and pineal gland. Normal midbrain, ammon and medulla. Normal cerebellum. Normal basal cisterns. Normal bilateral temporal bones. Normal bilateral internal auditory canals. There are postsurgical changes of the orbits.. There is small mucous retention cyst within the maxillary sinuses and sphenoid sinus.. Normal calvarium and skull base. Normal visualized soft tissue structures. Normal visualized upper cervical spine. No significant changes since prior exam MRI/Brain without Contrast IMPRESSION: Severe atrophy and periventricular white matter ischemic change without evidence for acute infarct Electronically Signed: Ryan Roman MD at 16:09 EST , Service support , CC: Nicanor Hoyt DO; Octaviano Franco MD Induction Machine Setter: Signed BEDSIDE GLUCOSE Collected: 12/20/2017 Status: F Source: [place] 12:15 PM [facility] TYPE CODE TESTS RESULT OUT OF REFERENCE UNITS RANGE LAB L501.080 70-110 mg/dL High BEDSIDE GLU 183 Result Comment: MANAGEMENT OF PATIENT CARE PER NURSING PROTOCOL Performed By: #### L501.080 #### [facility] Point of Care [address] [place] [address] BEDSIDE GLUCOSE Collected: 12/20/2017 Status: F Source: [place] 6:45 AM [facility] TYPE CODE TESTS RESULT OUT OF REFERENCE UNITS RANGE LAB L501.080 70-110 mg/dL High BEDSIDE GLU 173 Result Comment: MANAGEMENT OF PATIENT CARE PER NURSING PROTOCOL Performed By: #### L501.080 #### [facility] Point of Care [address] [place] [address] BEDSIDE GLUCOSE Collected: 12/19/2017 Status: F Source: [place] 10:41 PM [facility] TYPE CODE TESTS RESULT OUT OF REFERENCE UNITS RANGE LAB L501.080 70-110 mg/dL High BEDSIDE GLU 164 Result Comment: MANAGEMENT OF PATIENT CARE PER NURSING PROTOCOL Performed By: #### L501.080 #### [facility] Point of Care [address] [place] [address] BEDSIDE GLUCOSE Collected: 12/19/2017 Status: F Source: [place] 4:32 PM [facility] TYPE CODE TESTS RESULT OUT OF REFERENCE UNITS RANGE LAB L501.080 70-110 mg/dL High BEDSIDE GLU 155 Result Comment: MANAGEMENT OF PATIENT CARE PER NURSING PROTOCOL Performed By: #### L501.080 #### [facility] Point of Care [address] [place] [address] BEDSIDE GLUCOSE Collected: 12/19/2017 Status: F Source: RUY 11:18 AM [facility] REPOSITORY TYPE CODE TESTS RESULT OUT OF REFERENCE UNITS RANGE LAB L501.080 70-110 mg/dL High BEDSIDE GLU 127 Result Comment: MANAGEMENT OF PATIENT CARE PER NURSING PROTOCOL Performed By: #### L501.080 #### [facility] Point of Care [address] [place] [address] BEDSIDE GLUCOSE Collected: 12/19/2017 Status: F Source: RUY 6:43 AM [facility] REPOSITORY TYPE CODE TESTS RESULT OUT OF RANGE REFERENCE UNITS LAB L501.080 70-110 mg/dL Normal BEDSIDE GLU 107 Result Comment: MANAGEMENT OF PATIENT CARE PER NURSING PROTOCOL Performed By: #### L501.080 #### [facility] Point of Care [address] [place] [address] BEDSIDE GLUCOSE Collected: 12/18/2017 Status: F Source: RUY 9:12 PM [facility] REPOSITORY TYPE CODE TESTS RESULT OUT OF REFERENCE UNITS RANGE LAB L501.080 70-110 mg/dL High BEDSIDE GLU 129 Result Comment: MANAGEMENT OF PATIENT CARE PER NURSING PROTOCOL Performed By: #### L501.080 #### [facility] Point of Care [address] [place] [address] BEDSIDE GLUCOSE Collected: 12/18/2017 Status: F Source: RUY 5:07 PM [facility] REPOSITORY TYPE CODE TESTS RESULT OUT OF REFERENCE UNITS RANGE LAB L501.080 70-110 mg/dL High BEDSIDE GLU 126 Result Comment: MANAGEMENT OF PATIENT CARE PER NURSING PROTOCOL Performed By: #### L501.080 #### [facility] Point of Care [address] [place] [address] 12 LEAD ELECTROCARDIOGRAM Observed: 12/18/2017 Status: F Source: RUY 3:58 PM [facility] REPOSITORY [facility] Cardiovascular Services [address] [place] [address] 12 Lead EKG 12/16/17 0413 MR#: [id number] Acct: [id number] Name: NIKKI VIZCARRA Rep #: [id number] : 1945 72 From: Kurtis Barajas MD Attending Dr: Nicanor Hoyt DO Status: ADM IN Ordering Dr: Darron Cheney MD Date: 12/16/17 [place] [facility] [place]: F C Admitted: 12/16/17 Test Reason : FALL Blood Pressure : / mmHG Vent. Rate : 076 BPM Atrial Rate : 076 BPM P-R Int : 146 ms QRS Dur : 072 ms QT Int : 384 ms P-R-T Axes : -12 010 094 degrees QTc Int : 432 ms Poor data quality, interpretation may be adversely affected Normal sinus rhythm Nonspecific ST and T wave abnormality Abnormal ECG Confirmed by KARL HATCH, KURTIS ([id number]), editor magazine SHAHNAZ MARINA ([id number]) on 12/18/2017 3:58:22 PM Referred By: BOBBY Confirmed By:KURTIS BARAJAS MD 12/18/17 1558 Date Kurtis Barajas MD CC: Darron Cheney MD; Nicanor Hoyt DO; Octaviano Franco MD Signed BEDSIDE GLUCOSE Collected: 12/18/2017 Status: F Source: RUY 11:34 AM [facility] REPOSITORY TYPE CODE TESTS RESULT OUT OF REFERENCE UNITS RANGE LAB L501.080 70-110 mg/dL High BEDSIDE GLU 112 Result Comment: MANAGEMENT OF PATIENT CARE PER NURSING PROTOCOL Performed By: #### L501.080 #### [facility] Point of Care [address] [place] [address] BEDSIDE GLUCOSE Collected: 12/18/2017 Status: F Source: RUY 7:01 AM [facility] REPOSITORY TYPE CODE TESTS RESULT OUT OF REFERENCE UNITS RANGE LAB L501.080 70-110 mg/dL High BEDSIDE GLU 113 Result Comment: MANAGEMENT OF PATIENT CARE PER NURSING PROTOCOL Performed By: #### L501.080 #### [facility] Point of Care [address] [place] [address] BEDSIDE GLUCOSE Collected: 12/17/2017 Status: F Source: RUY 9:14 PM [facility] REPOSITORY TYPE CODE TESTS RESULT OUT OF REFERENCE UNITS RANGE LAB L501.080 70-110 mg/dL High BEDSIDE GLU 130 Result Comment: MANAGEMENT OF PATIENT CARE PER NURSING PROTOCOL Performed By: #### L501.080 #### [facility] Point of Care [address] [place] [address] BEDSIDE GLUCOSE Collected: 12/17/2017 Status: F Source: RUY 4:11 PM [facility] REPOSITORY TYPE CODE TESTS RESULT OUT OF REFERENCE UNITS RANGE LAB L501.080 70-110 mg/dL High BEDSIDE GLU 142 Result Comment: MANAGEMENT OF PATIENT CARE PER NURSING PROTOCOL Performed By: #### L501.080 #### [facility] Point of Care [address] [place] [address] CONSULTATION Observed: 12/17/2017 Status: F Source: RUY 1:[address] [facility] Medical Records Department [address] [place] [address] Consultation 12/17/17 1321 MR#: [id number] Acct: [id number] Name: NIKKI VIZCARRA Rep #: [id number] : 1945 72 From: Adalid Brown MD PCP: Salvador HATCH,Octaviano Logan Status: ADM IN Location: [facility] [place] [id number] Problem List (1) Left leg cellulitis Status: Acute Reason for Consult: cellulitis Consulted by: Dr. Hubbard History of Present Illness: The patient is a 72 year old F with h/o BLE infection who presented to ED 12/16 with 2 days of LLE redness, pain, swelling, no drainage. No fever or chills. Sees wound care for R foot wound, now healed. Recently had course of abx for infection in that foot with doxy/keflex then ceftriaxone reportedly from Dr. Franco. LLE started hurting, no known trauma to the area. Came to ED 12/15, sent out on po doxy, sx worsened, returned. Now admitted on vanc/zosyn, feeling slightly better. Full ROS performed and neg except as noted above. - Medical History Past Medical History (Chronic Problems): Chronic Problems (Last Updated 12/16/17 @ 09:33 by Douglas Bowman DO) PVD (peripheral vascular disease) (Chronic) Controlled diabetes mellitus (Chronic) Edema, lower extremity (Chronic) Presence of stent in coronary artery (Chronic) PTCA/stent to CX; PTCA/Stent PTCA/stent to prox RCA 05/06; PTCA/LILY in mid to distal RCA 08/29/12 Atherosclerotic heart disease of [place] coronary artery without angina pectoris (Chronic) PTCA/stent to CX; PTCA/Stent PTCA/stent to prox RCA 05/06; PTCA/LILY in mid to distal RCA 08/29/12; CABG x2 ARREGUIN tp LAD and SVG to OM2 01/02/11 S/P CABG (coronary artery bypass graft) (Chronic 01/02/11) CABG x2 ARREGUIN tp LAD and SVG to OM2 01/02/11 Paroxysmal atrial fibrillation (Chronic) Hyperlipidemia (Chronic) Hypertension (Chronic) Allergies/Adverse Reactions: Allergies ciprofloxacin [From Cipro] Allergy (Verified 12/16/17 03:15) Hives ciprofloxacin HCl [From Cipro] Allergy (Verified 12/16/17 03:15) Hives Latex, Natural Rubber Allergy (Verified 12/16/17 03:15) Rash Penicillins [PCN] Allergy (Verified 12/16/17 03:15) Hives codeine Adverse Reaction (Unknown, Verified 12/16/17 03:15) Unknown adhesive tape Adverse Reaction (Verified 12/16/17 03:15) Rash Home Medications: Ambulatory Orders Medication Instructions Recorded Docusate Sodium [Colace] 100 mg PO DAILY PRN 05/10/17 Magnesium Oxide 400 mg PO BID 05/10/17 Pantoprazole Sodium [Protonix] 40 mg PO DAILY 05/10/17 Rivaroxaban [Xarelto] 15 mg PO DAILY 05/10/17 - Social History SMOKING STATUS:: Former smoker Vital Signs Temp Pulse Resp BP Pulse Ox 98.6 F 78 18 128/72 H 94 12/17/17 08:32 12/17/17 11:03 12/17/17 08:32 12/17/17 11:03 12/17/17 08:32 Oxygen Delivery Method Room Air Weight: 98 kg Body Mass Index (BMI) 42.2 Finger Stick Blood Glucose 187 Laboratory Tests Past 24 Hrs - Other Studies Radiology: [] reviewed Other Studies: [] Route of nutrition/ use of supplements: [] Nutritional Intake: [] IV Site: [] [place] Catheter: [] - Physical Exam General: Alert, Oriented x3, Cooperative, No apparent distress HEENT: Atraumatic, PERRLA, EOMI Neck: Supple, No Nodes Lungs: Clear to auscultation, Normal air movement Cardiovascular: Regular rate, Regular Rhythm Abdomen: Soft, Non Tender, Non-Distended Extremities: Edema Skin: - - LLE from foot to upper cabrera with redness, swelling, mild pain/warmth. IV Site: Peripheral, without redness Musculoskeletal: No Tenderness to Palpation of Joints or Extremities Neurological: Cranial nerves II-XII grossly intact - Assessment/Plan Antibiotics: [] Assessment/Plan: [] Active and Suspected Problems (Last Updated 12/16/17 @ 09:33 by Douglas Bowman DO) Left leg cellulitis (Acute) Associated with leukocytosis and lactic acidosis. Will narrow abx to cefazolin. No purulence seen. Prior wound cx of R foot with pseudomonas, CoNS, and ecoli, but that site is now well healed. CKD - at baseline Will follow thank you. 12/17/17 1326 <Electronically signed by Adalid Brown MD> Date Adalid Brown MD Cosigner Signature (if applicable): Date CC: Adalid Brown MD; Octaviano Franco MD Signed BEDSIDE GLUCOSE Collected: 12/17/2017 Status: F Source: RUY 12:23 PM [facility] REPOSITORY TYPE CODE TESTS RESULT OUT OF REFERENCE UNITS RANGE LAB L501.080 70-110 mg/dL High BEDSIDE GLU 116 Result Comment: MANAGEMENT OF PATIENT CARE PER NURSING PROTOCOL Performed By: #### L501.080 #### [facility] Point of Care [address] [place] [address] BEDSIDE GLUCOSE Collected: 12/17/2017 Status: F Source: RUY 6:47 AM [facility] REPOSITORY TYPE CODE TESTS RESULT OUT OF REFERENCE UNITS RANGE LAB L501.080 70-110 mg/dL High BEDSIDE GLU 118 Result Comment: MANAGEMENT OF PATIENT CARE PER NURSING PROTOCOL Performed By: #### L501.080 #### [facility] Point of Care [address] [place] [address] BASIC METABOLIC Collected: 12/17/2017 Status: F Source: RUY PROFILE (BMP) 5:36 AM [facility] REPOSITORY TYPE CODE TESTS RESULT OUT OF RANGE REFERENCE UNITS LAB L501.0100 74-106 mg/dL High GLU 107 Result Comment: Fasting Glucose result from 100 to 125 mg/dL suggests IMPAIRED HOMEOSTASIS per A.D.A. criteria. Please note revised GLUCOSE reference range effective 2017. LAB L501.1000 7-18 mg/dL High BUN 26 LAB L501.1100 0.55-1.02 mg/dL High CREAT,SERUM 1.52 Result Comment: The validity of the calculated GFR AND GFRAA in patients over 70 years has not been determined. Clinical correlation is essential. LAB L501.1110 >60 mL/min Low EST GFR 36 Result Comment: Non- GFR Calc LAB L501.1115 >60 mL/min Low EST GFR - AA 43 Result Comment: GFR Calc LAB L501.1255 ml/min Normal Estimated CRCL 23.68 LAB L501.1300 10-20 RATIO Normal BUN/CRE 17.1 LAB L501.2200 8.5-10 mg/dL Normal .1 CA 8.5 LAB L501.5300 136-14 mmol/L Normal 5 NA 142 LAB L501.5600 3.5-5. mmol/L Normal 1 K 4.3 LAB L501.5900 98-107 mmol/L High CL 111 LAB L501.6100 21.0-3 mmol/L Normal 2.0 CO2 23.0 LAB L501.6200 5-15 Normal GAP 8 Performed By: #### L500.2500 #### [facility] [address] [place], [place], [id number] CBC W/DIFF, AUTOMATED Collected: 12/17/2017 Status: F Source: [place] 5:36 AM [facility] REPOSITORY TYPE CODE TESTS RESULT OUT OF RANGE REFERENCE UNITS LAB L100.1000 4.4-11.0 K/mm3 High WBC 12.2 LAB L100.1200 4.2-5.4 M/mm3 Low RBC 3.73 LAB L100.1300 12.0-15.0 g/dl Low HGB 8.2 LAB L100.1400 37-47 % Low HCT 31.5 LAB L100.1500 81-99 fL Normal MCV 84.5 LAB L100.1600 27.0-32.0 pg Low MCH 22.0 LAB L100.1700 32-36 g/gl Low MCHC 26.0 LAB L100.1810 11.6-14.6 % High RDW CV 21.1 LAB L100.1820 35.1-43.9 fl High RDW SD 65.4 LAB L100.1900 150-450 K/mm3 Normal PLT 178 LAB L100.2000 6.2-12.0 fl Normal MPV 9.9 LAB L100.2100 47-70 % High NEUT% 83.0 LAB L100.2200 19-41 % Low LY% 8.7 LAB L100.2300 0-10 % Normal MONO% 7.1 LAB L100.2400 0-5 % Normal EO% 0.8 LAB L100.2500 0-1 % Normal BASO% 0.2 LAB L100.2550 0.0-0.9 % Normal IM GRAN % 0.200 Result Comment: IG% - Immature Granulocytes (promyelocytes, myelocytes and metamyelocytes) > 1% indicates that a LEFT SHIFT is Present. LAB L100.2620 2.0-7.7 X10 3/uL Absolute Neut High 10.2 LAB L100.2720 0.83-4.51 X10 3/ul Absolute Lymph Normal 1.07 LAB L100.4500 SMEAR COMMENT Normal SCANNED LAB L100.7300 ANISO Normal 3+ LAB L100.7600 HYPOCHROMASIA Normal 1+ LAB L100.7700 MICROCYTES Normal 2+ LAB L100.8200 OVALOCYTE Normal 1+ Performed By: #### L100.0100 #### [facility] [address] [place], [address] BEDSIDE GLUCOSE Collected: 12/16/2017 Status: F Source: [place] 9:12 PM [facility] REPOSITORY TYPE CODE TESTS RESULT OUT OF REFERENCE UNITS RANGE LAB L501.080 70-110 mg/dL High BEDSIDE GLU 136 Result Comment: MANAGEMENT OF PATIENT CARE PER NURSING PROTOCOL Performed By: #### L501.080 #### [facility] Point of Care [address] [place] [address] BEDSIDE GLUCOSE Collected: 12/16/2017 Status: F Source: [place] 4:30 PM [facility] REPOSITORY TYPE CODE TESTS RESULT OUT OF REFERENCE UNITS RANGE LAB L501.080 70-110 mg/dL High BEDSIDE GLU 126 Result Comment: MANAGEMENT OF PATIENT CARE PER NURSING PROTOCOL Performed By: #### L501.080 #### [facility] Point of Care [address] [place] [address] LACTIC ACID Collected: 12/16/2017 Status: F Source: [place] 4:20 PM [facility] REPOSITORY Order Comment: Yes/No query for Sepsis Lactate Rule Y TYPE CODE TESTS RESULT OUT OF RANGE REFERENCE UNITS LAB L503.6005 0.4-2.0 mmol/L Normal LACTIC ACID 1.1 Performed By: #### L503.6005 #### [facility] [address] [place], [address] M R STAPH AUREUS Collected: 12/16/2017 Status: F Source: [place] DNA BY PCR 2:00 PM [facility] REPOSITORY Order Comment: Has pt arrived? Y TYPE CODE TESTS RESULT OUT OF RANGE REFERENCE UNITS LAB L8200.1100 Negative Normal MRSA Negative RESULT Performed By: #### L8200.1000 #### [facility] [address] [place], [address] URINALYSIS, COMPLETE Collected: 12/16/2017 Status: F Source: [place] 11:00 AM [facility] REPOSITORY Order Comment: How was Urine Obtained? CLEAN CATCH TYPE CODE TESTS RESULT OUT OF RANGE REFERENCE UNITS LAB L400.3000 Yellow COLOR Normal Yellow LAB L400.3050 Clear Normal CLARITY Clear LAB L400.3200 Normal mg/dl Normal GLUCOSE, UR Normal LAB L400.3300 Negative mg/dL Normal BILIRUBIN URINE Negative LAB L400.3400 Negative mg/dl Normal KETONE UR Negative LAB L400.3465 1.002-1.030 Normal SP.GR. DIPSTX 1.015 LAB L400.3550 5.0 - 8.0 pH UR Normal 5.0 LAB L400.3600 Negative mg/dl High PROT 15 DIPSTX LAB L400.3700 Normal mg/dl Normal UROBILI Normal LAB L400.3750 Negative Normal NITRITE UR Negative LAB L400.3780 Negative /ul Normal OCCULT BLOOD-UR Negative LAB L400.3800 Negative /ul High LEUK 25 ESTERASE LAB L400.4050 0-5 /hpf WBC Normal 0-5 SEEN LAB L400.4100 0-5 /hpf 0 Normal RBC-UA SEEN LAB L400.4150 5-10 /hpf SQUAM Normal EPI 0-5 SEEN LAB L400.4300 None Seen /hpf 0 Normal BACTERIA SEEN LAB L400.4350 <or=2+ /hpf 0 Normal MUCUS, URINE SEEN Performed By: #### L400.0001 #### [facility] [address] [place], [address] Observed: 12/16/2017 Status: F Source: [place] CULTURE, URINE 11:00 AM [facility] REPOSITORY Has pt arrived? Y Urine Culture ORGANISM 1: Mixed Gram Positive Organisms [place] Count <1000 MIX CULTURE Mixed contaminants. Submit a new specimen if indicated. Performed By: #### M100.0650 #### [facility] [address] [place], [address] BEDSIDE GLUCOSE Collected: 12/16/2017 Status: F Source: RUY 10:56 AM [facility] REPOSITORY TYPE CODE TESTS RESULT OUT OF REFERENCE UNITS RANGE LAB L501.080 70-110 mg/dL High BEDSIDE GLU 125 Result Comment: MANAGEMENT OF PATIENT CARE PER NURSING PROTOCOL Performed By: #### L501.080 #### [facility] Point of Care [address] [place] [address] LACTIC ACID Collected: 12/16/2017 Status: F Source: [place] 9:35 AM [facility] REPOSITORY TYPE CODE TESTS RESULT OUT OF REFERENCE UNITS RANGE LAB L503.6005 0.4-2.0 mmol/L High alert LACTIC ACID 4.1 Result Comment: Critical Result(s) Called at: 10:24:10 12/16/2017 by: Robert Mittal RN Performed By: #### L503.6005 #### [facility] [address] [place], [place], [address] BEDSIDE GLUCOSE Collected: 12/16/2017 Status: F Source: [place] 7:05 AM [facility] REPOSITORY TYPE CODE TESTS RESULT OUT OF REFERENCE UNITS RANGE LAB L501.080 70-110 mg/dL High BEDSIDE GLU 175 Result Comment: MANAGEMENT OF PATIENT CARE PER NURSING PROTOCOL Performed By: #### L501.080 #### [facility] Point of Care [address] [place] [address] HISTORY AND PHYSICAL Observed: 12/16/2017 Status: F Source: [place] EXAM 6:[address] [facility] Medical Records Department [address] [place] [id number] History and Physical 12/16/17 0557 MR#: [id number] Acct: [id number] Name: NIKKI VIZCARRA Rep #: [id number] : 1945 72 From: Preston Hubbard MD PCP: Salvador HATCH,Octaviano Logan Status: ADM IN Location: [facility] [id number] Problem List (1) Ulcer of right lower extremity with fat layer exposed Status: Acute (2) Cellulitis of right leg Status: Acute (3) Ulcer of right foot with fat layer exposed Status: Acute (4) Ulcer of left lower extremity with fat layer exposed Status: Acute (5) PVD (peripheral vascular disease) Status: Chronic (6) Ulcer of left lower extremity with fat layer exposed Status: Acute (7) Controlled diabetes mellitus Status: Chronic (8) Edema, lower extremity Status: Chronic (9) Presence of stent in coronary artery Status: Chronic Comment: PTCA/stent to CX; PTCA/Stent PTCA/stent to prox RCA 05/06; PTCA/LILY in mid to distal RCA 08/29/12 (10) Atherosclerotic heart disease of [place] coronary artery without angina pectoris Status: Chronic Qualifiers: [place] vs. transplanted heart: [place] heart Qualified Code(s): I25.10 - Atherosclerotic heart disease of [place] coronary artery without angina pectoris Comment: PTCA/stent to CX; PTCA/Stent PTCA/stent to prox RCA 05/06; PTCA/LILY in mid to distal RCA 08/29/12; CABG x2 ARREGUIN tp LAD and SVG to OM2 01/02/11 (11) S/P CABG (coronary artery bypass graft) Status: Chronic Comment: CABG x2 ARREGUIN tp LAD and SVG to OM2 01/02/11 (12) Paroxysmal atrial fibrillation Status: Chronic (13) Hyperlipidemia Status: Chronic Qualifiers: Hyperlipidemia type: unspecified Qualified Code(s): E78.5 - Hyperlipidemia, unspecified (14) Hypertension Status: Chronic Qualifiers: Hypertension type: essential hypertension Qualified Code(s): I10 - Essential (primary) hypertension History of Present Illness Date of Admission: 12/16/17 Chief Complaint: Left leg cellulitis for 1 day The patient is a 72 year old F with multiple comorbidities came to ER for left legs redness and pain for 1 day. She came to the yesterday evening and was sent home on doxycycline. After after she went home. she has gotten dizzy and slipped when she stood up and then fell and hit back of head with a small bump on the head. She takes heavy dose of gabapentin 800 mg 6 times a day but her home medications shows 800 mg twice daily. She claims she is here for left leg pain, redness which is almost up to proximal thigh. She has history of cardiac and has big scars over both legs. Vitals in the ED shows temperature 99.2 F, no tachycardia, tachypnea or hypoxia. She has leukocytosis of 24,000 WBC with 90% neutrophils. BUN/creatinine 26/1.61. Last BUN/creatinine 37/1.5 in October 2017. [] She was admitted here in October 2017 for cellulitis of right leg. Past Medical History Past Medical History (Chronic Problems): Chronic Problems (Last Reviewed 10/25/17 @ 01:47 by Oziel Angel MD) PVD (peripheral vascular disease) (Chronic) Controlled diabetes mellitus (Chronic) Edema, lower extremity (Chronic) Presence of stent in coronary artery (Chronic) PTCA/stent to CX; PTCA/Stent PTCA/stent to prox RCA 05/06; PTCA/LILY in mid to distal RCA 08/29/12 Atherosclerotic heart disease of [place] coronary artery without angina pectoris (Chronic) PTCA/stent to CX; PTCA/Stent PTCA/stent to prox RCA 05/06; PTCA/LILY in mid to distal RCA 08/29/12; CABG x2 ARREGUIN tp LAD and SVG to OM2 01/02/11 S/P CABG (coronary artery bypass graft) (Chronic 01/02/11) CABG x2 ARREGUIN tp LAD and SVG to OM2 01/02/11 Paroxysmal atrial fibrillation (Chronic) Hyperlipidemia (Chronic) Hypertension (Chronic) Medical History: Medical History (Last Reviewed 10/25/17 @ 01:47 by Oziel Angel MD) PVD (peripheral vascular disease) (Chronic) I73.9 Ulcer of left lower extremity with fat layer exposed (Acute) L97.922 Controlled diabetes mellitus (Chronic) E11.9 Edema, lower extremity (Chronic) R60.0 Atherosclerotic heart disease of [place] coronary artery without angina pectoris (Chronic) I25.10 PTCA/stent to CX; PTCA/Stent PTCA/stent to prox RCA 05/06; PTCA/LILY in mid to distal RCA 08/29/12; CABG x2 ARREGUIN tp LAD and SVG to OM2 01/02/11 Paroxysmal atrial fibrillation (Chronic) I48.0 Hyperlipidemia (Chronic) E78.5 Hypertension (Chronic) 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 Diabetic ulcer of both lower extremities E11.622, L97.919, L97.929 History of DVT (deep vein thrombosis) Z86.718 Multiple sclerosis G35 Trigeminal neuralgia G50.0 Type 2 diabetes mellitus E11.9 LAURITA (obstructive sleep apnea) G47.33 Peripheral vascular disease I73.9 Venous insufficiency of both lower extremities I87.2 Allergies ciprofloxacin [From Cipro] Allergy (Verified 12/16/17 03:15) Hives ciprofloxacin HCl [From Cipro] Allergy (Verified 12/16/17 03:15) Hives Latex, Natural Rubber Allergy (Verified 12/16/17 03:15) Rash Penicillins [PCN] Allergy (Verified 12/16/17 03:15) Hives codeine Adverse Reaction (Unknown, Verified 12/16/17 03:15) Unknown adhesive tape Adverse Reaction (Verified 12/16/17 03:15) Rash Home Medications: Ambulatory Orders Medication Instructions Recorded Docusate Sodium [Colace] 100 mg PO DAILY PRN 05/10/17 Surgical History: Surgical History (Last Reviewed 10/25/17 @ 01:47 by Oziel Angel MD) Presence of stent in coronary artery (Chronic) Z95.5 PTCA/stent to CX; PTCA/Stent PTCA/stent to prox RCA 05/06; PTCA/LIYL in mid to distal RCA 08/29/12 S/P CABG (coronary artery bypass graft) (Chronic) Onset Date: 01/02/11 Z95.1 CABG x2 ARREGUIN tp LAD and SVG to OM2 01/02/11 History of cataract surgery Z98.49 History of cholecystectomy Z98.890, Z90.49 History of hernia repair Z98.890, Z87.19 History of tonsillectomy and adenoidectomy Z98.890 History of total hysterectomy Z98.890, Z90.710 Postsurgical percutaneous transluminal coronary angioplasty (PTCA) status Z98.61 PTCA/stent to CX; PTCA/Stent PTCA/stent to prox RCA 05/06; PTCA/LILY in mid to distal RCA 08/29/12 Surgical History: angioplasty, appendectomy, cholecystectomy, coronary bypass surgery, hysterectomy, tonsillectomy, - - R ankle surgery with hardware. placement of stents (cardiac or lower extremity. patient is unsure). excision upper lip carcinoma. Incision and drainage and excisional debridement infected traumatic open hematoma wound right anterior leg (90 cm2) and incision and drainage and excisional debridement infected traumatic open hematoma wound left anterior leg (72 cm2) - 12/29/14. 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 Sibling Family History: Family History (Last Reviewed 10/25/17 @ 01:48 by Oziel Angel MD) Father Heart disease Mother Hypertension Cancer Brother Diabetes Hypertension History Items: Diabetes Review of Systems Constitutional: Reports: Malaise, Weakness. Denies: Chills, Fever HEENT: Denies: Head Aches, Sinus Congestion, Sinus Drainage Cardiovascular: Reports: Light Headedness. Denies: Chest Pain, Palpitations Respiratory: Denies: Cough, Shortness of breath at rest, Sputum production Gastrointestinal: Denies: Abdominal Pain, Nausea, Vomiting Genitourinary: Denies: Dysuria, Frequency, Hematuria, Urgency Musculoskeletal: Reports: Joint Pain, Joint stiffness, Leg Pain, Muscle pain. Denies: Joint Tenderness Skin: Denies: Rash, Wounds Neurological: Reports: Balance problems, Incoordination, - - Fall. Denies: Focal weakness, Numbness, Tingling Psychiatric: Denies: Anxiety, Depression, Homicidal Ideations, Suicidal Ideations Hematologic/ Lymphatic: Denies: Easy Bruising, Easy Bleeding VTE Information - Inpt Only VTE Present on Admission: No VTE Mechan Device Prophylaxis: None Reason prophylaxis not ordered:: Procedure Not Indicated - On Xarelto Patient Problems: Active and Suspected Problems (Last Reviewed 10/25/17 @ 01:47 by Oziel Angel MD) Ulcer of left lower extremity with fat layer exposed (Acute) - Physical Exam General: Alert, Oriented x3, Cooperative HEENT: Atraumatic, PERRLA, EOMI, Normocephalic Neck: Supple, No JVD, Negative Carotid Bruits Lungs: Clear to auscultation, Normal air movement, No rhonchi, No wheeze, No rales Cardiovascular: Regular rate, No murmurs Abdomen: Bowel Sounds Present, Soft, Non Tender, Non-Distended Extremities: Capillary Refill Less than 3 Seconds, Edema Skin: Rash Present - Diffuse erythema, tenderness or induration of left lower extremity up to proximal thigh. Musculoskeletal: No Tenderness to Palpation of Joints or Extremities, Arthritic Changes, Muscle Wasting Neurological: Cranial nerves II-XII grossly intact Psych/Mental Status: Normal Affect, Appropriate Vital Signs Temp Pulse Resp BP Pulse Ox 99.2 F H 79 16 112/51 L 94 12/16/17 03:09 12/16/17 05:50 12/16/17 03:09 12/16/17 05:50 12/16/17 05:50 Oxygen Delivery Method Room Air Weight: 200 lb Body Mass Index (BMI) 39.0 Finger Stick Blood Glucose 187 Laboratory Tests Past 24 Hrs WBC 24.0 H RBC 4.56 Hgb 10.6 L Hct 36.9 L MCV 80.9 L MCH 23.2 L MCHC 28.7 L Assessment/Plan All Active Problems (Last Reviewed 10/25/17 @ 01:47 by Oziel Angel MD) Ulcer of right lower extremity with fat layer exposed (Acute) Cellulitis of right leg (Acute) Ulcer of right foot with fat layer exposed (Acute) Ulcer of left lower extremity with fat layer exposed (Acute) Ulcer of left lower extremity with fat layer exposed (Acute) The patient is a 72 year old F with multiple comorbidities came to ER for left leg redness and pain for 1 day. She came to the yesterday evening and was sent home on doxycycline. At home, she got dizzy and slipped when she stood up and then fell and hit back of head with a small bump on the head. She takes heavy dose of gabapentin 800 mg 6 times a day but her home medications shows 800 mg twice daily. She claims she is here for left leg pain, redness which is almost up to proximal thigh. She has history of cardiac and has big scars over both legs. Vitals in the ED shows temperature 99.2 F, no tachycardia, tachypnea or hypoxia. She has leukocytosis of 24,000 WBC with 90% neutrophils. BUN/creatinine 26/1.61. Last BUN/creatinine 37/1.5 in October 2017. [] She was admitted here in October 2017 for cellulitis of right leg. 1. Left lower extremity cellulitis: Patient is being admitted on the telemetry floor. Based on the previous right wound culture she grew Pseudomonas, staph hemolyticus and E. coli in November 2017, she is started on IV vancomycin and cefepime. Urine culture had E. coli in October 2017. Blood cultures x2, UA and urine culture ordered. Monitor CBC. IV fluid normal saline 100 mils per hour. MRSA nasal screen. 2. Dizziness, fall secondary to incoordination/weak lower extremities and gabapentin high-dose: Patient is on Xarelto for A. fib. CT head was done and does not show acute change. There is a small bump on the occipital region. No laceration. PT and OT evaluation and management. Patient does not want to go long term. 3. Paroxysmal A. fib on Xarelto: Currently patient EKG shows normal sinus rhythm at [address]-T changes. 4. Diabetes mellitus 2: Blood sugar is fairly well controlled. Glucose 155 on BMP. Last A1c was 6.2 in April 2017. A1c ordered. Accu-Chek before meals and at bedtime and cover with NovoLog sliding scale. 5. Coronary artery disease status post stent in RCA status post CABG x2 in 2010: Continue cardiac medication. 6. Peripheral arterial disease and chronic venous insufficiency: The patient had arterial Doppler study in December 2017 which showed suspected arterial calcification bilaterally in lower extremities as ankle pressure could not be determined on either side due to noncompressibility. 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 : multiple comorbidities complicates the present care and expect difficult and delay recovery Code Visit Inpatient E AND M: 89684 Init Hosp L3 12/16/17 0633 <Electronically signed by Preston Hubbard MD> Date Preston Hubbard MD Cosigner Signature: Date (if applicable) CC: Preston Hubbard MD; Octaviano Franco MD Signed EMERGENCY DEPARTMENT Observed: 12/16/2017 Status: F Source: [place] SUMMARY 5:55 AM [facility] REPOSIT[facility] Medical Records Department [address] [place] [address] Emergency Department Summary 12/16/17 0551 MR#: [id number] Acct: [id number] Name: NIKKI VIZCARRA Rep #: [id number] : 1945 72 From: Darron Cheney MD PCP: Salvador HATCH,Octaviano Logan Status: ADM IN - ER Visit Summary Date of Service: 12/16/17 Chief Complaint: Fall History of Present Illness: The patient is a 72 F who presents after a fall. Patient provides an inconsistent history. The patient states that she had called EMS for her sister. She states that shortly before EMS arrival she had gotten dizzy when she stood up and fell and hit her head. She denies loss of consciousness. EMS was called out for gabapentin overdose. Patient states that she has been taking up to 6 800 mg gabapentin per day. I spoke to the medic who states that EMS have been alerted by life alert and dispatch spoke to the patient. They were toned out for overdose and fall. They note that the patient was very confused at the time of their evaluation. The medic was familiar with this patient. She states that at their evaluation on this run she was only oriented x1. Patient denies fevers chest pain shortness of breath vomiting. She has been being treated for cellulitis. She was seen last night in the emergency department for cellulitis of the left leg and started on doxycycline. Physical Examination: Afebrile blood pressure 140/110 vitals otherwise normal There is an abrasion to the occipital scalp with small amount of dried blood no laceration Heart regular rate and rhythm Lungs clear Abdomen soft Patient has lymphedema of the bilateral lower extremities, patient has cellulitis of the left lower leg extending all the way up to the proximal thigh. This is hot to the touch. I do not appreciate lymphangitic streaking. There is no fluctuance or wound. Test Results: EKG shows sinus rhythm at a rate of 76. Labs notable for white blood cell count 24.0. Creatinine 1.61. Lactic acid pending at the time of this dictation. Chest x-ray shows cardiomegaly. CT the head shows no acute findings. Emergency Department Course and Treatment: Given patient's confusion she underwent the above workup. She has significant leukocytosis however she does not meet Sirs criteria. I did still obtain blood cultures. Patient was treated with IV vancomycin. The nurse who saw the patient last night also saw her today and notes that the cellulitis appears significantly worse. Patient will needed admitted for IV antibiotics. Treatment Plan: [] Disposition: Admit Impression: Cellulitis left leg Closed head injury Confusion This note was generated with EnteGreat dictation software. It may contain incorrect words, spelling, and punctuation that were not noted in review of the chart prior to signing ED Disposition - Plan for ED Patient: Chief Complaint: Fall What to do if you have Problems For any increased pain, shortness of breath, bleeding, nausea or vomiting, chest pain, or any unexpected problems, contact your Primary Care Provider. Call [facility] [facility] ([phone]) or report to the closest Emergency Room. Call 911 if necessary. 12/16/17 0555 <Electronically signed by Darron Cheney MD> Date Darron Cheney MD Cosigner Signature (If Indicated): Date CC: Octaviano Franco MD LACTIC ACID Collected: 12/16/2017 Status: F Source: [place] 5:15 AM [facility] Order Comment: Yes/No query for Sepsis Lactate Rule Y TYPE CODE TESTS RESULT OUT OF REFERENCE UNITS RANGE LAB L503.6005 0.4-2.0 mmol/L High LACTIC ACID 2.1 Result Comment: Critical Result(s) Called at: 05:56:33 12/16/2017 by: Nabil Fine to dr. cheney Performed By: #### L503.6005 #### [facility] [place], [address] Observed: 12/16/2017 Status: F Source: [place] CULTURE, BLOOD (WB) 5:15 AM [facility] BC No growth in 5 days. Performed By: #### M200.1000 #### [facility] [place] [place], [address] COMPREHENSIVE METABOLIC Collected: 12/16/2017 Status: F Source: [place] [facility] 4:05 AM [facility] TYPE CODE TESTS RESULT OUT OF RANGE REFERENCE UNITS LAB L501.0100 74-106 mg/dL High GLU 155 Result Comment: Fasting Glucose result greater than or equal to 126 mg/dL suggests DIABETES MELLITUS per A.D.A. criteria. Please note revised GLUCOSE reference range effective 2017. LAB L501.1000 7-18 mg/dL High BUN 26 LAB L501.1100 0.55-1.02 mg/dL High CREAT,SERUM 1.61 Result Comment: The validity of the calculated GFR AND GFRAA in patients over 70 years has not been determined. Clinical correlation is essential. LAB L501.1110 >60 mL/min Low EST GFR 33 Result Comment: Non- GFR Calc LAB L501.1115 >60 mL/min Low EST GFR - AA 40 Result Comment: GFR Calc LAB L501.1255 ml/min Normal Estimated CRCL 22.35 LAB L501.1300 10-20 RATIO Normal BUN/CRE 16.1 LAB L501.1500 6.4-8. g/dL Normal 2 T PROT 6.7 LAB L501.1800 3.2-5. g/dL Normal 0 ALB 3.2 LAB L501.1950 2.2-4. g/dL Normal 2 GLOB 3.5 LAB L501.2000 0.9-2. RATIO Normal 4 A/G 0.9 LAB L501.2200 8.5-10 mg/dL Normal .1 CA 9.4 LAB L501.4100 15-37 U/L Normal AST 18 LAB L501.4305 45-117 U/L Normal ALK P 73 LAB L501.4405 13-56 U/L Normal ALT 22 LAB L501.4600 0.20-1 mg/dL High .00 T BILI 1.10 LAB L501.5300 136-14 mmol/L Normal 5 NA 144 LAB L501.5600 3.5-5. mmol/L Normal 1 K 4.1 LAB L501.5900 98-107 mmol/L Normal CL 105 LAB L501.6100 21.0-3 mmol/L Normal 2.0 CO2 30.0 LAB L501.6200 5-15 Normal GAP 9 Performed By: #### L500.4050 #### [facility] [place], [address] CBC W/DIFF, AUTOMATED Collected: 12/16/2017 Status: F Source: [place] 4:05 AM [facility] TYPE CODE TESTS RESULT OUT OF RANGE REFERENCE UNITS LAB L100.1000 4.4-11.0 K/mm3 High WBC 24.0 LAB L100.1200 4.2-5.4 M/mm3 Normal RBC 4.56 LAB L100.1300 12.0-15.0 g/dl Low HGB 10.6 LAB L100.1400 37-47 % Low HCT 36.9 LAB L100.1500 81-99 fL Low MCV 80.9 LAB L100.1600 27.0-32.0 pg Low MCH 23.2 LAB L100.1700 32-36 g/gl Low MCHC 28.7 LAB L100.1810 11.6-14.6 % High RDW CV 21.0 LAB L100.1820 35.1-43.9 fl High RDW SD 62.5 LAB L100.1900 150-450 K/mm3 Normal PLT 262 LAB L100.2000 6.2-12.0 fl Normal MPV 9.7 LAB L100.2100 47-70 % High NEUT% 91.4 LAB L100.2200 19-41 % Low LY% 5.2 LAB L100.2300 0-10 % Normal MONO% 3.1 LAB L100.2400 0-5 % Normal EO% 0.1 LAB L100.2500 0-1 % Normal BASO% 0.0 LAB L100.2550 0.0-0.9 % Normal IM GRAN % 0.200 Result Comment: IG% - Immature Granulocytes (promyelocytes, myelocytes and metamyelocytes) > 1% indicates that a LEFT SHIFT is Present. LAB L100.2620 2.0-7.7 X10 3/uL High Absolute Neut 21.9 LAB L100.2720 0.83-4.51 X10 3/ul Normal Absolute Lymph 1.24 LAB L100.4500 Normal SMEAR COMMENT Result Comment: NEUTROPHILIA NOTED LAB L100.5500 ADEQ PLT EST Normal ADEQUATE LAB L100.7300 ANISO 2+ Normal LAB L100.7500 POLYCHROMASIA Normal RARE LAB L100.7600 HYPOCHROMASIA 2+ Normal LAB L100.7700 MICROCYTES 1+ Normal LAB L100.8200 OVALOCYTE Normal RARE Performed By: #### L100.0100 #### [facility] [address] [facility] [place], [address] ERYTHROCYTE SED RATE Collected: 12/16/2017 Status: F Source: [place] 4:05 AM [facility] TYPE CODE TESTS RESULT OUT OF RANGE REFERENCE UNITS LAB L102.0000 0-30 mm/hr High SED RATE 32 Performed By: #### L101.9900 #### [facility] [address] [place], [address] HEMOGLOBIN A1C Collected: 12/16/2017 Status: F Source: [place] 4:05 AM [facility] TYPE CODE TESTS RESULT OUT OF RANGE REFERENCE UNITS LAB L501.9985 4.2-6.3 % Normal HGB A1C 5.9 Performed By: #### L501.9985 #### [facility] [address] [place], [address] CHEST 1 VIEW Observed: 12/16/2017 Status: F Source: [place] (PORTABLE) 3:40 AM [facility] Imaging Services [address] [place] [address] Chest 1 View (Portable) MR#: [id number] Acct: [id number] Name: NIKKI VIZCARRA Rep #: [id number] : 1945 F 72 From: Jurgen Ledesma MD PCP: Salvador HATCH,Octaviano Chi Status: REG ER Study: Chest 1 View (Portable) Date of Exam: 12/16/17 Exam# [id number] Ordering Dr: Darron Cheney MD STUDY: X-RAY CHEST REASON FOR EXAM: Female, 72 years old. Patient fell TECHNIQUE: 1 view COMPARISON: 10/24/2017 FINDINGS: There is mild cardiomegaly with a tortuous aorta. Median sternotomy wires are in place. The lungs are clear. There are no pleural effusions.. Normal visualized thoracic spine. Normal visualized ribs, clavicles, and shoulders. There is no demonstrated abnormality of the visualized soft tissue structures of the upper abdomen. RAD/Chest 1 View (Portable) IMPRESSION: Moderate cardiomegaly. No acute findings in the lungs Electronically Signed: Jurgen Ledesma MD at 4:13 EST Tel , Service support , CC: Darron Cheney MD; Octaviano Franco MD Induction Machine Setter: Signed BRAIN/HEAD WITHOUT Observed: 12/16/2017 Status: F Source: [place] CONTRAST 3:25 AM [facility] Imaging Services [address] [place] [address] Brain/Head without Contrast MR#: [id number] Acct: [id number] Name: NIKKI VIZCARRA Rep #: [id number] : 1945 F 72 From: Jurgen Ledesma MD PCP: Octaviano Franco MD, Chi Status: REG ER Study: Brain/Head without Contrast Date of Exam: 12/16/17 Exam# [id number] Ordering Dr: Darron Cheney MD STUDY: CT BRAIN WITHOUT CONTRAST REASON FOR EXAM: Female, 72 years old. Patient fell and hit the back of the head. RADIATION DOSAGE (If Supplied By Facility): CTDIvol = ( 44.99 ) mGy, DLP = ( 779.24 ) mGycm TECHNIQUE: Transaxial CT imaging of the brain was performed without administration of intravenous contrast material. Individualized dose optimization techniques were used for this CT. COMPARISON: None. FINDINGS: There is generalized brain atrophy with no acute hemorrhage or acute infarction and no intra or extra-axial tumor mass. Nonspecific microangiopathic changes are seen in both white matter tracts especially in the centrum semiovales. The calvarium is intact. There are no scalp swellings. The orbits and mastoid air cells are normal. There are inflammatory changes in the left maxillary sinus.. CT/Brain/Head without Contrast IMPRESSION: No acute findings in the brain. Generalized brain atrophy. Chronic inflammatory changes in the left maxillary sinus Electronically Signed: Jurgen Ledesma MD at 4:12 EST Tel , Service support , CC: Darron Cheney MD; Octaviano Franco MD Induction Machine Setter: Signed EMERGENCY DEPARTMENT Observed: 12/15/2017 Status: F Source: [place] SUMMARY 11:59 PM [facility] Medical Records Department [address] [place] [address] Emergency Department Summary 12/15/17 1824 MR#: [id number] Acct: [id number] Name: NIKKI VIZCARRA Rep #: [id number] : 1945 72 From: Bayron Beach MD PCP: Octaviano Franco MD, Chi Status: DEP ER - ER Visit Summary Date of Service: 12/15/17 Chief Complaint: Cellulitis History of Present Illness: The patient is a 72 F presenting for evaluation due to concern for cellulitis. Patient has a history of poorly healing ulcers and her legs. She reports that she is been going to wound care once a week, and having visiting nurse come 3 times a week. Patient actually recently finished a course of antibiotics for infection, but states that over the course last 24 hours she has had interruption of pain and redness going up her left leg. No presence of fevers. Physical Examination: Lower extremity exam shows evidence of chronic nonhealing leg ulcers. There is edema and some weeping from the top of the foot. There is erythema noted over the patient's medial thigh wound that does not streak all the way up into the groin. No subcutaneous emphysema. Test Results: None indicated Emergency Department Course and Treatment: Patient presented for evaluation secondary to concern for cellulitis. She has normal vital signs and no fever. I do not believe the laboratory workup is indicated, but she does appear to have cellulitis. Patient will be started on a course of doxycycline. She was given strict return instructions, she voiced understanding and her own words. Patient was discharged. Disposition: Discharge Impression: 1. Left leg cellulitis This note was generated with [employer] software. It may contain incorrect words, spelling, and punctuation that were not noted in review of the chart prior to signing ED Disposition - Plan for ED Patient: Disposition: Home or Assisted Living Chief Complaint: Cellulitis Diagnosis: Cellulitis Instructions: Discharge Instructions for Cellulitis Prescriptions: Doxycycline Monohydrate 100 mg PO BID #20 cap Additional Instructions: Followup with your nurse and wound care as scheduled What to do if you have Problems For any increased pain, shortness of breath, bleeding, nausea or vomiting, chest pain, or any unexpected problems, contact your Primary Care Provider. Call [facility] [facility] ([phone]) or report to the closest Emergency Room. Call 911 if necessary. 12/15/17 5208 <Electronically signed by Bayron Beach MD> Date Bayron Beach MD Cosigner Signature (If Indicated): Date CC: Octaviano Franco MD LOWER EXT ARTERIAL Observed: 12/09/2017 Status: F Source: [place] STUDY 11:03 AM [facility] Cardiovascular Services [address] [place] [address] 12/09/17 1056 MR#: [id number] Acct: [id number] Name: NIKKI VIZCARRA Rep #: [id number] : 1945 72 From: Jimmy Fermin MD Attending Dr: Bayron Dutton DPM Status: REG RCR Ordering Dr: Date: 12/09/17 Location: [facility] Sex: F C Admitted: Arterial Study - Arterial Study Arterial Study: This is a 72-year-old female with a history of hypertension, diabetes mellitus, coronary artery disease, and prior PTCA. The patient presents with a chronic nonhealing wound to the left lower extremity. Suspecting the presence of atherosclerotic peripheral arterial occlusive disease, the patient was brought to the noninvasive vascular laboratory at this time for the purpose of bilateral noninvasive lower extremity arterial assessment. Doppler signal assessment was used to evaluate the pulses at ankle level bilaterally. The posterior tibial and dorsalis pedis pulses were biphasic bilaterally. Segmental limb pressures were obtained bilaterally. Ankle pressures, as determined by posterior tibial and dorsalis pedis pulses, could not be determined on either side due to the noncompressibility of the vasculature. The right digital pressure was measured at 139 mmHg. The left digital pressure was measured at 160 mmHg. Pulse volume recordings were obtained bilaterally and segmentally. Waveform amplitudes appeared satisfactory at all levels bilaterally, though augmentation between thigh and calf levels was not noted on either side. Resting ankle brachial indices could not be calculated on either side due to the noncompressibility of the vasculature. Digital brachial indices were calculated bilaterally. The right digital-brachial index was calculated to be 0.80. The left digital-brachial index was calculated to be 0.92. Impression: Based upon the findings of this resting noninvasive lower extremity arterial study, arterial calcification is suspected bilaterally in the lower extremities. Ankle pressures could not be determined on either side, due to the noncompressibility of the vasculature, which is likely due to arterial calcification, rendering the arterial tree noncompressible. Biphasic waveforms were noted at ankle level bilaterally, which is relatively nonspecific as to the presence of an occlusive process. Digital-brachial indices are bilaterally normal, which suggests relatively normal arterial perfusion at digital level bilaterally. There is no specific indication of an occlusive process in the lower extremity arterial tree bilaterally. However, clinical correlation is advised. 12/09/17 1103 <Electronically signed by Jimmy Fermin MD> Date Jimmy Fermin MD CC: HOMERO Dutton; Octaviano Franco MD Date Dictated: 12/09/171055 Date Transcribed: 12/09/171055 Induction Machine Setter: ALFREDO Helton VENOUS DUPLEX LOWER Observed: 12/09/2017 Status: F Source: [place] EXTREMITY 10:10 AM [facility] Cardiovascular Services [address] [place] [address] Venous Duplex US - Phil Extrem 12/07/17 08 MR#: [id number] Acct: [id number] Name: NIKKI VIZCARRA Rep #: [id number] : 1945 72 From: Jimmy Fermin MD Attending Dr: Bayron Dutton DPM Status: REG RCR Ordering Dr: Bayron Dutton DPM Date: 12/07/17 Location: [facility] Sex: F C Admitted: Reason For Study: EDEMA RIGHT LEFT CFV is compressible, spontaneous, phasic, CFV is compressible, spontaneous, phasic, competent and demonstrates normal competent, and demonstrates normal augmentation. augmentation. FV is compressible, spontaneous, phasic, FV is compressible, spontaneous, phasic, competent and demonstrates normal competent and demonstrates normal augmentation. augmentation. POP V is compressible, spontaneous, phasic, POP V is compressible, spontaneous, phasic, competent and demonstrates normal competent and demonstrates normal augmentation. augmentation. T/P Trunk is compressible. T/P Trunk is compressible. RT calf veins are difficult to visualize due PTV and PeroV of LLE are not well to pitting edema . visualized. RT PTV/ PeroV is compressible distally and Left SSV is compressible but too small to not visualized for the remainder of the assess for incompetency. vessel. Left GSV at SFJ is compressible and RT GSV at SFJ is compressible and competent. competent. Remainder of RT GSV is compressible and Remainder of Left GSV is absent. competent. Superficial accessory veins of RT calf are partially compressible with echoes consistent with chronic superficial thrombophlebitis. RT SSV is compressible and competent. Procedure Exam performed in department. The exam was of poor technical quality due to edema. A preliminary report was called and/or faxed to [facility]. <> Interpretation Summary Deep veins of the lower extremities are bilaterally patent and compressible segmentally. There is no evidence of deep vein thrombosis on either side. Valvular competence appears intact within the proximal deep venous systems bilaterally. However, portions of the posterior tibial veins and peroneal veins were not visualized on either side. Sapheno- femoral junctions are bilaterally competent . The right greater saphenous vein is patent, compressible, and competent. The left greater saphenous vein is absent. The right small saphenous vein is patent and competent. The left small saphenous vein is patent and compressible, but too small to assess in terms of competence. Chronic changes consistent with chronic superficial thrombophlebitis are noted in the right calf. Ordering Physician: Bayron Dutton Referring Physician: OCTAVIANO FRANCO CHI Performed By: Delmis Bird, RDCS, RVT 12/09/17 1009 Date Jimmy Fermin MD CC: DPArmando Dutton; Octaviano Franco MD Date Dictated: 12/07/1714 Date Transcribed: 12/09/17 1009 Induction Machine Setter: Signed CBC W/DIFF, AUTOMATED Collected: 11/20/2017 Status: F Source: [place] 3:25 PM [facility] REPOSITORY TYPE CODE TESTS RESULT OUT OF RANGE REFERENCE UNITS LAB L100.1000 4.4-11.0 K/mm3 Normal WBC 9.0 LAB L100.1200 4.2-5.4 M/mm3 Normal RBC 4.21 LAB L100.1300 12.0-15.0 g/dl Low HGB 9.7 LAB L100.1400 37-47 % Low HCT 34.1 LAB L100.1500 81-99 fL Normal MCV 81.0 LAB L100.1600 27.0-32.0 pg Low MCH 23.0 LAB L100.1700 32-36 g/gl Low MCHC 28.4 LAB L100.1810 11.6-14.6 % High RDW CV 23.2 LAB L100.1820 35.1-43.9 fl High RDW SD 66.4 LAB L100.1900 150-450 K/mm3 Normal PLT 331 LAB L100.2000 6.2-12.0 fl Normal MPV 10.2 LAB L100.2100 47-70 % High NEUT% 72.2 LAB L100.2200 19-41 % Low LY% 18.9 LAB L100.2300 0-10 % Normal MONO% 7.3 LAB L100.2400 0-5 % Normal EO% 0.8 LAB L100.2500 0-1 % Normal BASO% 0.2 LAB L100.2550 0.0-0.9 % Normal IM GRAN % 0.600 Result Comment: IG% - Immature Granulocytes (promyelocytes, myelocytes and metamyelocytes) > 1% indicates that a LEFT SHIFT is Present. LAB L100.2620 2.0-7.7 X10 3/uL Normal Absolute Neut 6.5 LAB L100.2720 0.83-4.51 X10 3/ul Normal Absolute Lymph 1.69 LAB L100.4500 Normal SMEAR COMMENT SCANNED Result Comment: 2+ ANISOCYTOSIS Performed By: #### L100.0100 #### [facility] [address] [place], [address] BASIC METABOLIC Collected: 11/20/2017 Status: F Source: [place] PROFILE ([facility]) 3:25 PM [facility] REPOSITORY TYPE CODE TESTS RESULT OUT OF RANGE REFERENCE UNITS LAB L501.0100 74-106 mg/dL High GLU 139 Result Comment: Fasting Glucose result greater than or equal to 126 mg/dL suggests DIABETES MELLITUS per A.D.A. criteria. Please note revised GLUCOSE reference range effective 2017. LAB L501.1000 7-18 mg/dL High BUN 24 LAB L501.1100 0.55-1.02 mg/dL High CREAT,SERUM 1.47 Result Comment: The validity of the calculated GFR AND GFRAA in patients over 70 years has not been determined. Clinical correlation is essential. LAB L501.1110 >60 mL/min Low EST GFR 37 Result Comment: Non- GFR Calc LAB L501.1115 >60 mL/min Low EST GFR - AA 45 Result Comment: GFR Calc LAB L501.1300 10-20 RATIO Normal BUN/CRE 16.3 LAB L501.2200 8.5-10.1 mg/dL CA Normal 9.0 LAB L501.5300 136-145 mmol/L High NA 146 LAB L501.5600 3.5-5.1 mmol/L Low K 3.2 LAB L501.5900 98-107 mmol/L High CL 108 LAB L501.6100 21.0-32.0 mmol/L Normal CO2 29.0 LAB L501.6200 5-15 Normal GAP 9 Performed By: #### L500.2500, L501.5200 #### [facility] [address] [place], [place], [address] MAGNESIUM Collected: 11/20/2017 Status: F Source: [place] 3:25 PM [facility] REPOSITORY TYPE CODE TESTS RESULT OUT OF RANGE REFERENCE UNITS LAB L501.5200 1.6-2.6 mg/dL Normal MG 1.8 Performed By: #### L500.2500, L501.5200 #### [facility] [address] [place], [place], [address] MRSA WOUND DNA BY Collected: 11/20/2017 Status: F Source: [place] PCR 3:25 PM [facility] REPOSITORY Order Comment: Specimen Source? WOUND TYPE CODE TESTS RESULT OUT OF RANGE REFERENCE UNITS LAB L8200.1100 Negative Normal MRSA Negative RESULT LAB L8200.1150 Negative Normal SA RESULT NEGATIVE Performed By: #### L8200.1075 #### [facility] [address] [place], [place], [address] Observed: 11/20/2017 Status: F Source: [place] CULTURE, WOUND 3:25 PM [facility] REPOSITORY Gram Stain Gram Stain 2+ Gram negative rods 2+ Gram positive cocci 1+ White Blood Cells Wound Culture ORGANISM 1: Pseudomonas spp Amount Growth 3+ ORGANISM 2: Staphylococcus haemolyticus Amount Growth 2+ ORGANISM 3: Escherichia coli Amount Growth Rare Pseudomonas spp: REACTION Cefepime $ <=1 S Ceftazidime *NF 4 S Gentamicin $ >=16 R Imipenem *NF 0.5 S Levofloxacin $ 1 S Piperacillin/Tazobactam $$ <=4 S Tobramycin $ 2 S (NF) indicates non-formulary drug at [facility]. Approval by Infectious Disease Specialist required before non-formulary drugs may be ordered and/or dispensed. Staphylococcus haemolyticus: REACTION Benzylpenicillin NF >=0.5 R Cefoxitin *NF + Clindamycin $$ >=8 R Inducable Clindamycin Resistan - Erythromycin $ >=8 R Gentamicin $ <=0.5 S Levofloxacin $ 4 I Linezolid $$$$ 1 S Oxacillin NF >=4 R Tigecycline $$$$ <=0.12 S Rifampin $$ <=0.5 S Tetracycline NF >=16 R Vancomycin $ 1 S (NF) indicates non-formulary drug at [facility]. Approval by Infectious Disease Specialist required before non-formulary drugs may be ordered and/or dispensed. * CLSI guidelines does not recommend testing of cephalosporins. This interpretation is deduced from Beta-lactam/penicillin results. Escherichia coli: REACTION Amoxacillin/Clavulanic Acid $ 4 S Ampicillin $ >=32 R Ampicillin/Sulbactam $ 16 I Cefazolin $ <=4 S Cefepime $ <=1 S Ceftriaxone $ <=1 S Ciprofloxacin $ <=0.25 S ESBL - Ertapenim $$$ <=0.5 S Gentamicin $ >=16 R Imipenem *NF <=0.25 S Levofloxacin $ <=0.12 S Piperacillin/Tazobactam $$ <=4 S Tobramycin $ <=1 S Trimethoprim/Sulfametho $ >=320 R (NF) indicates non-formulary drug at [facility]. Approval by Infectious Disease Specialist required before non-formulary drugs may be ordered and/or dispensed. Performed By: #### M100.1400 #### [facility] [address] [place], [address] BASIC METABOLIC Collected: 11/13/2017 Status: F Source: [place]FILE ([facility]) 6:20 AM [facility] REPOSITORY TYPE CODE TESTS RESULT OUT OF RANGE REFERENCE UNITS LAB L501.0100 74-106 mg/dL High GLU 107 Result Comment: Fasting Glucose result from 100 to 125 mg/dL suggests IMPAIRED HOMEOSTASIS per A.D.A. criteria. Please note revised GLUCOSE reference range effective 2017. LAB L501.1000 7-18 mg/dL High BUN 30 LAB L501.1100 0.55-1.02 mg/dL High CREAT,SERUM 1.48 Result Comment: The validity of the calculated GFR AND GFRAA in patients over 70 years has not been determined. Clinical correlation is essential. LAB L501.1110 >60 mL/min Low EST GFR 37 Result Comment: Non- GFR Calc LAB L501.1115 >60 mL/min Low EST GFR - AA 44 Result Comment: GFR Calc LAB L501.1300 10-20 RATIO High BUN/CRE 20.3 LAB L501.2200 8.5-10.1 mg/dL CA Normal 8.8 LAB L501.5300 136-145 mmol/L NA Normal 143 LAB L501.5600 3.5-5.1 mmol/L K Normal 3.8 LAB L501.5900 98-107 mmol/L CL Normal 105 LAB L501.6100 21.0-32.0 mmol/L Normal CO2 32.0 LAB L501.6200 5-15 Normal GAP 6 Performed By: #### L500.2500 #### [facility] [address] [place], [place], [address] CBC W/DIFF, AUTOMATED Collected: 11/13/2017 Status: F Source: [place] 6:20 AM [facility] REPOSITORY TYPE CODE TESTS RESULT OUT OF RANGE REFERENCE UNITS LAB L100.1000 4.4-11.0 K/mm3 Normal WBC 10.1 LAB L100.1200 4.2-5.4 M/mm3 Low RBC 4.07 LAB L100.1300 12.0-15.0 g/dl Low HGB 9.1 LAB L100.1400 37-47 % Low HCT 32.4 LAB L100.1500 81-99 fL Low MCV 79.6 LAB L100.1600 27.0-32.0 pg Low MCH 22.4 LAB L100.1700 32-36 g/gl Low MCHC 28.1 LAB L100.1810 11.6-14.6 % High RDW CV 22.4 LAB L100.1820 35.1-43.9 fl High RDW SD 62.5 LAB L100.1900 150-450 K/mm3 Normal PLT 311 LAB L100.2000 6.2-12.0 fl Normal MPV 10.0 LAB L100.2100 47-70 % High NEUT% 76.1 LAB L100.2200 19-41 % Low LY% 13.8 LAB L100.2300 0-10 % Normal MONO% 8.7 LAB L100.2400 0-5 % Normal EO% 0.8 LAB L100.2500 0-1 % Normal BASO% 0.2 LAB L100.2550 0.0-0.9 % Normal IM GRAN % 0.400 Result Comment: IG% - Immature Granulocytes (promyelocytes, myelocytes and metamyelocytes) > 1% indicates that a LEFT SHIFT is Present. LAB L100.2620 2.0-7.7 X10 3/uL Absolute Normal Neut 7.7 LAB L100.2720 0.83-4.51 X10 3/ul Absolute Normal Lymph 1.40 LAB L100.7700 Normal MICROCYTES 2+ Performed By: #### L100.0100 #### [facility] [address] [place], [address] CBC W/DIFF, AUTOMATED Collected: 10/30/2017 Status: F Source: [place] 6:45 AM [facility] REPOSITORY TYPE CODE TESTS RESULT OUT OF RANGE REFERENCE UNITS LAB L100.1000 4.4-11.0 K/mm3 Normal WBC 9.4 LAB L100.1200 4.2-5.4 M/mm3 Low RBC 4.18 LAB L100.1300 12.0-15.0 g/dl Low HGB 9.5 LAB L100.1400 37-47 % Low HCT 32.8 LAB L100.1500 81-99 fL Low MCV 78.5 LAB L100.1600 27.0-32.0 pg Low MCH 22.7 LAB L100.1700 32-36 g/gl Low MCHC 29.0 LAB L100.1810 11.6-14.6 % High RDW CV 19.9 LAB L100.1820 35.1-43.9 fl High RDW SD 56.1 LAB L100.1900 150-450 K/mm3 Normal PLT 329 LAB L100.2000 6.2-12.0 fl Normal MPV 10.5 LAB L100.2100 47-70 % High NEUT% 72.7 LAB L100.2200 19-41 % Low LY% 15.6 LAB L100.2300 0-10 % Normal MONO% 8.5 LAB L100.2400 0-5 % Normal EO% 1.5 LAB L100.2500 0-1 % Normal BASO% 0.3 LAB L100.2550 0.0-0.9 % High IM GRAN % 1.400 Result Comment: IG% - Immature Granulocytes (promyelocytes, myelocytes and metamyelocytes) > 1% indicates that a LEFT SHIFT is Present. LAB L100.2620 2.0-7.7 X10 3/uL Normal Absolute Neut 6.8 LAB L100.2720 0.83-4.51 X10 3/ul Normal Absolute Lymph 1.47 Performed By: #### L100.0100 #### [facility] [address] [place], [address] BASIC METABOLIC Collected: 10/30/2017 Status: F Source: [place] PROFILE ([facility]) 6:45 AM [facility] REPOSITORY TYPE CODE TESTS RESULT OUT OF RANGE REFERENCE UNITS LAB L501.0100 74-106 mg/dL High GLU 107 Result Comment: Fasting Glucose result from 100 to 125 mg/dL suggests IMPAIRED HOMEOSTASIS per A.D.A. criteria. Please note revised GLUCOSE reference range effective 2017. LAB L501.1000 7-18 mg/dL High BUN 35 LAB L501.1100 0.55-1.02 mg/dL High CREAT,SERUM 1.21 Result Comment: The validity of the calculated GFR AND GFRAA in patients over 70 years has not been determined. Clinical correlation is essential. LAB L501.1110 >60 mL/min Low EST GFR 46 Result Comment: Non- GFR Calc LAB L501.1115 >60 mL/min Low EST GFR - AA 56 Result Comment: GFR Calc LAB L501.1300 10-20 RATIO High BUN/CRE 28.9 LAB L501.2200 8.5-10.1 mg/dL CA Normal 9.2 LAB L501.5300 136-145 mmol/L NA Normal 142 LAB L501.5600 3.5-5.1 mmol/L K Normal 5.1 LAB L501.5900 98-107 mmol/L CL Normal 106 LAB L501.6100 21.0-32.0 mmol/L Normal CO2 31.0 LAB L501.6200 5-15 Normal GAP 5 Performed By: #### L500.2500 #### [facility] [address] [place], [address] BEDSIDE GLUCOSE Collected: 10/27/2017 Status: F Source: [place] 11:13 AM [facility] REPOSITORY TYPE CODE TESTS RESULT OUT OF REFERENCE UNITS RANGE LAB L501.080 70-110 mg/dL High BEDSIDE GLU 178 Result Comment: MANAGEMENT OF PATIENT CARE PER NURSING PROTOCOL Performed By: #### L501.080 #### [facility] Point of Care [address] [place] [address] DISCHARGE SUMMARY Observed: 10/27/2017 Status: F Source: [place] 9:19 AM [facility] REPOSITORY [facility] Medical Records Department [address] [place] [address] Discharge Summary 10/27/1717 MR#: [id number] Acct: [id number] Name: NIKKI VIZCARRA Rep #: [id number] : 1945 72 From: Douglas Bowman DO PCP: Salvador HATCH,Octaviano Chi Status: ADM IN Location: [place] [address] Discharge Date and Diagnosis - Problem List Patient Problems: Active and Suspected Problems (Last Reviewed 10/25/17 @ 01:47 by Oziel Angel MD) Cellulitis of right leg (Acute) Date of Admission: 10/25/17 Date of Discharge: 10/27/17 - Primary Discharge Diagnosis Active and Suspected Problems (Last Reviewed 10/25/17 @ 01:47 by Oziel Angel MD) Cellulitis of right leg (Acute) - Secondary Discharge Diagnosis Chronic Problems (Last Reviewed 10/25/17 @ 01:47 by Oziel Angel MD) PVD (peripheral vascular disease) (Chronic) Controlled diabetes mellitus (Chronic) Edema, lower extremity (Chronic) Presence of stent in coronary artery (Chronic) PTCA/stent to CX; PTCA/Stent PTCA/stent to prox RCA 05/06; PTCA/LILY in mid to distal RCA 08/29/12 Atherosclerotic heart disease of [place] coronary artery without angina pectoris (Chronic) PTCA/stent to CX; PTCA/Stent PTCA/stent to prox RCA 05/06; PTCA/LILY in mid to distal RCA 08/29/12; CABG x2 ARREGUIN tp LAD and SVG to OM2 01/02/11 S/P CABG (coronary artery bypass graft) (Chronic 01/02/11) CABG x2 ARREGUIN tp LAD and SVG to OM2 01/02/11 Paroxysmal atrial fibrillation (Chronic) Hyperlipidemia (Chronic) Hypertension (Chronic) Hospital Course and Treatment Imaging Results: Clinical Impression(s) from Imaging Studies Tibia/Fibula X-Ray 10/24/17 19:48 IMPRESSION: There is soft tissue edema. Skin irregularity laterally. Electronically Signed: Eric Pollard DO at 21:23 EDT Tel [phone], Service support , Chest X-Ray 10/24/17 20:05 IMPRESSION: Prominent cardiac shadow. Minimal basilar atelectasis. Electronically Signed: Eric Pollard DO at 21:26 EDT Tel [phone], Service support , Venous Duplex 10/24/17 21:56 IMPRESSION: No sonographic evidence for deep venous thrombosis of the right common femoral or superficial femoral vein. Electronically Signed: Lexi Marina MD at 2:18 EDT , Service support , Lower Extremity CT 10/25/17 10:47 IMPRESSION: Findings in keeping with diffuse subcutaneous edema and skin thickening with no focal fluid collection or abscess collection. Soft tissue defect along the anterior aspect of the mid leg. Electronically Signed: Milo Hughes MD at 12:41 EDT Tel [phone], Service support , Consultations 10/24/17 23:08 Consult: Onc/Wound/rouge miller Routine Comment: Reason for Consult:: Bilateral leg wounds Operations: None Procedures: None Summary of Care Provided: The patient is a 72 year old F presents with RLE cellulitis. 1. RLE cellulitis * improved, emblem fuser tender, but less severe. * CT leg negative for nec fas, abscess. * change to doxycyline and keflex. * check MRSA * elevated RLE * pt with chronic pain, so will change Tramadol to oxycodone--short term. 2. pAfib * continue Xarelto * continue Amiodarone 3. DM2 * fair control * add SSI 4. Sepsis * POA * 2/2 RLE cellulitis * resolved [] Discharge Diet: 1800 Calorie Control Diet Discharge Activity: Return to Normal Activity Home Medications: Medications to take at Discharge Docusate Sodium [Colace] 100 mg PO DAILY PRN 05/10/17 Magnesium Oxide 400 mg PO BID 05/10/17 Pantoprazole Sodium [Protonix] 40 mg PO DAILY 05/10/17 Rivaroxaban [Xarelto] 15 mg PO DAILY 05/10/17 metoprolol tartrate 50 mg tablet 50 mg PO BID #180 tab 09/18/17 amiodarone 200 mg tablet 200 mg PO DAILY #90 tab 10/10/17 Duloxetine HCl 60 mg PO DAILY 10/24/17 furosemide 40 mg tablet 40 mg PO .QOD PRN tab 10/25/17 Acetaminophen [Tylenol Tablet] 1,000 mg PO Q8 tablet 10/27/17 Cephalexin [Keflex] 500 mg PO Q8 #21 capsule 10/27/17 Doxycycline 100 mg PO BID #14 capsule 10/27/17 Gabapentin [Neurontin] 800 mg PO BID 3 Days #6 tab 10/27/17 Glucerna Shake 120 ml PO 4X/DAY liquid 10/27/17 Oxycodone [Oxyir] 5 mg PO Q6H PRN PRN 3 Days #12 tab 10/27/17 Following Prescrptions Were Given to Patient: Oxycodone [Oxyir] 5 mg PO Q6H PRN PRN 3 Days #12 tab PRN Reason: Pain Cephalexin [Keflex] 500 mg PO Q8 #21 capsule Doxycycline 100 mg PO BID #14 capsule Gabapentin [Neurontin] 800 mg PO BID 3 Days #6 tab Primary Care Physician: Octaviano Franco Chi, MD [Primary Care Provider] - Within 2 Weeks Disposition: Senior Living facility Minutes spent on discharge:: 35 Patient Condition:: Good Medical Necessity - Tobacco Use Smoking Status: Former smoker Meaningful Use Info Meaningful Use Diagnoses (Choose all that apply): None applicable Code Visit Inpatient E SHANEL M: [id number] Disch Hosp 10/27/17918 <Electronically signed by Douglas Bowman DO> Date Douglas Bowman DO Cosigner Signature (if applicable): Date CC: Douglas Bowman DO; Octaviano Franco MD Signed TRANSFER TO [facility] Observed: 10/27/2017 Status: F Source: [facility] 9:16 AM [facility] REPOSITORY [facility] Medical Records Department [address] [place] [id number] Transfer to [facility] MR#: [id number] Acct: [id number] Name: NIKKI VIZCARRA Rep #: [id number] : 1945 72 From: Douglas Bowman DO PCP: Octaviano Franco MD, Chi Status: ADM IN NIKKI VIZCARRA (Patient) (Health Ins. Claim No.) (Day of Discharge to Facility) Certification of patient admission REQUIRED AT TIME OF ADMISSION. I CERTIFY THAT [facility] SERVICES ARE REQUIRED TO BE GIVEN ON AN IN-PATIENT BASIS BECAUSE OF THE ABOVE NAMED PATIENT'S NEED FOR FPC CARE ON A CONTINUING BASIS FOR THE CONDITION(S) FOR WHICH HE/SHE WAS RECEIVING IN-PATIENT HOSPITAL SERVICES PRIOR TO HIS/HER TRANSFER TO THE [facility]. 10/27/17915 <Electronically signed by Douglas Bowman DO> Date Douglas Bowman DO - Diet 10/24/17 22:41 Diet: Regular Diet Food consistency:: Regular Liquid Consistency:: Regular/Thin Type of Dietary Supplement:: Glucerna 1.5 emilio - Routine Orders/Code Status Routine Lab Work: CBC - Qm, BMP - Q sunday Code Status: Full Code - Wound(s) RIGHT LEG Wound Type: Stasis Ulcer top right foot Wound Type: keep right leg elevated right dorsal foot Wound Type: non healing wound Dressing Change: AntiMicrobial (Aquacel AG, etc) right medial lower leg Wound Type: Puncture Dressing Change: AntiMicrobial (Aquacel AG, etc) left lateral lower leg Wound Type: Abrasion Dressing Change: Dry Sterile Dressing left anterior lower leg Wound Type: Abrasion Dressing Change: AntiMicrobial (Aquacel AG, etc) back left thigh Wound Type: Skin Tear - Therapies Physical Therapy: Eval and Treat Occupational Therapy: Eval and Treat - Allergies/Procedures Done in Hospital Allergies/Adverse Reactions: Allergies ciprofloxacin [From Cipro] Allergy (Verified 10/24/17 18:39) Hives ciprofloxacin HCl [From Cipro] Allergy (Verified 10/24/17 18:39) Hives Latex, Natural Rubber Allergy (Verified 10/24/17 18:39) Rash Penicillins [PCN] Allergy (Verified 10/24/17 18:39) Hives codeine Adverse Reaction (Unknown, Verified 10/24/17 18:39) Unknown adhesive tape Adverse Reaction (Verified 10/24/17 18:39) Rash - Type of Care/Length of Stay Estimated LOS: Convalescent Care Less Than 30 days Type of Care Needed: Skilled Rehab Potential: Fair Prognosis: Good - Additional Orders/Day of Discharge Day of Discharge: 10/27/17 - Dietary and Speech Recommendations Dietitian Recommendations/Changes: Recommend cardiac, 1800 calorie carb-controlled diet. Suggest Ej 1 packet BID for improved wound-healing. Continue Glucerna shake, 120 ml 4x/day w/ medpass (chocolate preferred). - Follow Up Care Primary Care Physician: Octaviano Franco Chi, MD [Primary Care Provider] - Within 2 Weeks 10/27/17 0916 <Electronically signed by Douglas Bowman DO> Date Douglas Bowman DO CC: Octaviano Franco MD Signed CBC W/DIFF, AUTOMATED Collected: 10/27/2017 Status: F Source: [place] 8:50 AM [facility] REPOSITORY TYPE CODE TESTS RESULT OUT OF RANGE REFERENCE UNITS LAB L100.1000 4.4-11.0 K/mm3 High WBC 11.7 LAB L100.1200 4.2-5.4 M/mm3 Low RBC 3.97 LAB L100.1300 12.0-15.0 g/dl Low HGB 8.9 LAB L100.1400 37-47 % Low HCT 31.4 LAB L100.1500 81-99 fL Low MCV 79.1 LAB L100.1600 27.0-32.0 pg Low MCH 22.4 LAB L100.1700 32-36 g/gl Low MCHC 28.3 LAB L100.1810 11.6-14.6 % High RDW CV 20.1 LAB L100.1820 35.1-43.9 fl High RDW SD 58.5 LAB L100.1900 150-450 K/mm3 Normal PLT 282 LAB L100.2000 6.2-12.0 fl Normal MPV 10.0 LAB L100.2100 47-70 % High NEUT% 85.8 LAB L100.2200 19-41 % Low LY% 6.3 LAB L100.2300 0-10 % Normal MONO% 6.5 LAB L100.2400 0-5 % Normal EO% 1.0 LAB L100.2500 0-1 % Normal BASO% 0.1 LAB L100.2550 0.0-0.9 % Normal IM GRAN % 0.300 Result Comment: IG% - Immature Granulocytes (promyelocytes, myelocytes and metamyelocytes) > 1% indicates that a LEFT SHIFT is Present. LAB L100.2620 2.0-7.7 X10 3/uL Absolute Neut High 10.0 LAB L100.2720 0.83-4.51 X10 3/ul Low Absolute Lymph 0.74 LAB L100.5500 ADEQ PLT EST Normal ADEQUATE LAB L100.7300 ANISO Normal 1+ LAB L100.7500 POLYCHROMASIA Normal RARE LAB L100.7600 HYPOCHROMASIA Normal 1+ LAB L100.7700 MICROCYTES Normal 1+ Performed By: #### L100.0100 #### [facility] [address] [place], [address] BASIC METABOLIC Collected: 10/27/2017 Status: F Source: [place] PROFILE ([facility]) 8:50 AM [facility] REPOSITORY TYPE CODE TESTS RESULT OUT OF RANGE REFERENCE UNITS LAB L501.0100 74-106 mg/dL High GLU 139 Result Comment: Fasting Glucose result greater than or equal to 126 mg/dL suggests DIABETES MELLITUS per A.D.A. criteria. Please note revised GLUCOSE reference range effective 2017. LAB L501.1000 7-18 mg/dL High BUN 37 LAB L501.1100 0.55-1.02 mg/dL High CREAT,SERUM 1.50 Result Comment: The validity of the calculated GFR AND GFRAA in patients over 70 years has not been determined. Clinical correlation is essential. LAB L501.1110 >60 mL/min Low EST GFR 36 Result Comment: Non- GFR Calc LAB L501.1115 >60 mL/min Low EST GFR - AA 44 Result Comment: GFR Calc LAB L501.1255 ml/min Normal Estimated CRCL 23.99 LAB L501.1300 10-20 RATIO High BUN/CRE 24.7 LAB L501.2200 8.5-10 mg/dL Normal .1 CA 9.3 LAB L501.5300 136-14 mmol/L Normal 5 NA 143 LAB L501.5600 3.5-5. mmol/L Normal 1 K 4.9 LAB L501.5900 98-107 mmol/L Normal CL 107 LAB L501.6100 21.0-3 mmol/L Normal 2.0 CO2 29.0 LAB L501.6200 5-15 Normal GAP 7 Performed By: #### L500.2500 #### [facility] [address] [place], [place], [address] BEDSIDE GLUCOSE Collected: 10/27/2017 Status: F Source: [place] 6:33 AM [facility] REPOSITORY TYPE CODE TESTS RESULT OUT OF REFERENCE UNITS RANGE LAB L501.080 70-110 mg/dL High BEDSIDE GLU 116 Result Comment: MANAGEMENT OF PATIENT CARE PER NURSING PROTOCOL Performed By: #### L501.080 #### [facility] Point of Care [address] [place] [address] VANCOMYCIN, TROUGH Collected: 10/26/2017 Status: F Source: [place] LEVEL 11:55 PM [facility] REPOSITORY Order Comment: Comments: Draw 30min prior to vanco dose due at midnight Time Medication is to be Given? 0000 TYPE CODE TESTS RESULT OUT OF RANGE REFERENCE UNITS LAB L501.8820 5.0-15.0 ug/mL Normal VANCO, TROUGH 10.0 Result Comment: VANCOMYCIN STANDARED DRUG THERAPY TROUGH LEVEL: 5.0 - 15.0 mg/L VANCOMYCIN HIGH INTENSITY THERAPY TROUGH LEVEL: 15.0 - 20.0 mg/L High Intensity therapy recommended for serious life threatening infections include: - Meningitis -Endocarditis -Pneumonia (Ventilator/Healtcare Associated) -Sepsis PLEASE CONTACT PHARMACY SERVICES (#[id number]) FOR INTERPRETATION OF RESULTS. Performed By: #### L501.8820 #### [facility] [address] [facility] [place], [address] BEDSIDE GLUCOSE Collected: 10/26/2017 Status: F Source: [place] 9:17 PM [facility] REPOSITORY TYPE CODE TESTS RESULT OUT OF REFERENCE UNITS RANGE LAB L501.080 70-110 mg/dL High BEDSIDE GLU 169 Result Comment: MANAGEMENT OF PATIENT CARE PER NURSING PROTOCOL Performed By: #### L501.080 #### [facility] Point of Care [address] [facility] [place], [place] [address] BEDSIDE GLUCOSE Collected: 10/26/2017 Status: F Source: [place] 4:14 PM [facility] REPOSITORY TYPE CODE TESTS RESULT OUT OF REFERENCE UNITS RANGE LAB L501.080 70-110 mg/dL High BEDSIDE GLU 135 Result Comment: MANAGEMENT OF PATIENT CARE PER NURSING PROTOCOL Performed By: #### L501.080 #### [facility] Point of Care [address] [facility] [place], [place] [address] Observed: 10/26/2017 Status: F Source: [place] MRSA/SAID SCREEN 2:00 PM [facility] REPOSITORY Comments: sent by primary INÉS garay MRSA/NILDA SCRN S. AUREUS S. aureus Negative MRSA MRSA Negative Performed By: #### M100.651 #### [facility] [address] [place], [address] BEDSIDE GLUCOSE Collected: 10/26/2017 Status: F Source: [place] 12:02 PM [facility] REPOSITORY TYPE CODE TESTS RESULT OUT OF REFERENCE UNITS RANGE LAB L501.080 70-110 mg/dL High BEDSIDE GLU 157 Result Comment: MANAGEMENT OF PATIENT CARE PER NURSING PROTOCOL Performed By: #### L501.080 #### [facility] Point of Care [address] [place] [address] BEDSIDE GLUCOSE Collected: 10/26/2017 Status: F Source: [place] 8:45 AM [facility] REPOSITORY TYPE CODE TESTS RESULT OUT OF REFERENCE UNITS RANGE LAB L501.080 70-110 mg/dL High BEDSIDE GLU 128 Result Comment: MANAGEMENT OF PATIENT CARE PER NURSING PROTOCOL Performed By: #### L501.080 #### [facility] [facility] Point of Care [address] [place], [place] [address] CBC W/DIFF, AUTOMATED Collected: 10/26/2017 Status: F Source: RU[place] 5:50 AM [facility] REPOSITORY TYPE CODE TESTS RESULT OUT OF RANGE REFERENCE UNITS LAB L100.1000 4.4-11.0 K/mm3 High WBC 14.1 LAB L100.1200 4.2-5.4 M/mm3 Low RBC 4.09 LAB L100.1300 12.0-15.0 g/dl Low HGB 9.2 LAB L100.1400 37-47 % Low HCT 32.0 LAB L100.1500 81-99 fL Low MCV 78.2 LAB L100.1600 27.0-32.0 pg Low MCH 22.5 LAB L100.1700 32-36 g/gl Low MCHC 28.8 LAB L100.1810 11.6-14.6 % High RDW CV 19.9 LAB L100.1820 35.1-43.9 fl High RDW SD 57.6 LAB L100.1900 150-450 K/mm3 Normal PLT 257 LAB L100.2000 6.2-12.0 fl Normal MPV 10.1 LAB L100.2100 47-70 % High NEUT% 88.1 LAB L100.2200 19-41 % Low LY% 5.0 LAB L100.2300 0-10 % Normal MONO% 6.2 LAB L100.2400 0-5 % Normal EO% 0.5 LAB L100.2500 0-1 % Normal BASO% 0.1 LAB L100.2550 0.0-0.9 % Normal IM GRAN % 0.100 Result Comment: IG% - Immature Granulocytes (promyelocytes, myelocytes and metamyelocytes) > 1% indicates that a LEFT SHIFT is Present. LAB L100.2620 2.0-7.7 X10 3/uL High Absolute Neut 12.5 LAB L100.2720 0.83-4.51 X10 3/ul Low Absolute Lymph 0.70 Performed By: #### L100.0100 #### [facility] [address] [place], [address] BASIC METABOLIC Collected: 10/26/2017 Status: F Source: [place] PROFILE (BMP) 5:50 AM [facility] REPOSITORY TYPE CODE TESTS RESULT OUT OF RANGE REFERENCE UNITS LAB L501.0100 74-106 mg/dL High GLU 127 Result Comment: Fasting Glucose result greater than or equal to 126 mg/dL suggests DIABETES MELLITUS per A.D.A. criteria. Please note revised GLUCOSE reference range effective 2017. LAB L501.1000 7-18 mg/dL High BUN 38 LAB L501.1100 0.55-1.02 mg/dL High CREAT,SERUM 1.61 Result Comment: The validity of the calculated GFR AND GFRAA in patients over 70 years has not been determined. Clinical correlation is essential. LAB L501.1110 >60 mL/min Low EST GFR 33 Result Comment: Non- GFR Calc LAB L501.1115 >60 mL/min Low EST GFR - AA 40 Result Comment: GFR Calc LAB L501.1255 ml/min Normal Estimated CRCL 22.35 LAB L501.1300 10-20 RATIO High BUN/CRE 23.6 LAB L501.2200 8.5-10 mg/dL Normal .1 CA 9.4 LAB L501.5300 136-14 mmol/L Normal 5 NA 142 LAB L501.5600 3.5-5. mmol/L Normal 1 K 4.8 LAB L501.5900 98-107 mmol/L Normal CL 107 LAB L501.6100 21.0-3 mmol/L Normal 2.0 CO2 25.0 LAB L501.6200 5-15 Normal GAP 10 Performed By: #### L500.2500 #### [facility] [address] [facility] [place], [address] BEDSIDE GLUCOSE Collected: 10/25/2017 Status: F Source: [place] 9:58 PM [facility] REPOSITORY TYPE CODE TESTS RESULT OUT OF REFERENCE UNITS RANGE LAB L501.080 70-110 mg/dL High BEDSIDE GLU 150 Result Comment: MANAGEMENT OF PATIENT CARE PER NURSING PROTOCOL Performed By: #### L501.080 #### [facility] Point of Care [address] [place] [address] BEDSIDE GLUCOSE Collected: 10/25/2017 Status: F Source: [place] 3:22 PM [facility] REPOSITORY TYPE CODE TESTS RESULT OUT OF REFERENCE UNITS RANGE LAB L501.080 70-110 mg/dL High BEDSIDE GLU 153 Result Comment: MANAGEMENT OF PATIENT CARE PER NURSING PROTOCOL Performed By: #### L501.080 #### [facility] Point of Care [address] [place] [address] 12 LEAD ELECTROCARDIOGRAM Observed: 10/25/2017 Status: F Source: [place] 1:36 PM [facility] REPOSITORY [facility] Cardiovascular Services [address] [place] [address] 12 Lead EKG 10/24/171953 MR#: [id number] Acct: [id number] Name: NIKKI VIZCARRA Rep #: [id number] : 1945 72 From: Kurtis Barajas MD Attending Dr: Douglas Bowman DO Status: ADM IN Ordering Dr: Jessy Mendoza MD Date: 10/24/17 Location: DE3 Sex: F C Admitted: 10/24/17 Test Reason : CP Blood Pressure : / mmHG Vent. Rate : 078 BPM Atrial Rate : 078 BPM P-R Int : 152 ms QRS Dur : 072 ms QT Int : 378 ms P-R-T Axes : 013 013 095 degrees QTc Int : 430 ms Normal sinus rhythm Nonspecific ST and T wave abnormality Abnormal ECG Confirmed by KURTIS BARAJAS MD ([id number]), editor magazine SHAHNAZ MARINA ([id number]) on 10/25/2017 1:35:58 PM Referred By: LD Confirmed By:KURTIS BARAJAS MD 10/25/17 1336 Date Kurtis Barajas MD CC: Douglas Bowman DO; Jessy Mendoza MD; Octaviano Franco MD Signed BEDSIDE GLUCOSE Collected: 10/25/2017 Status: F Source: [place] 11:50 AM [facility] REPOSITORY TYPE CODE TESTS RESULT OUT OF REFERENCE UNITS RANGE LAB L501.080 70-110 mg/dL High BEDSIDE GLU 131 Result Comment: MANAGEMENT OF PATIENT CARE PER NURSING PROTOCOL Performed By: #### L501.080 #### [facility] Point of Care [address] [place] [address] EXTREMITY LOWER Observed: 10/25/2017 Status: F Source: [place] WITHOUT CONTRA 10:48 AM [facility] REPOSITORY [facility] Imaging Services [address] [place] [address] Extremity Lower without Contra MR#: [id number] Acct: [id number] Name: NIKKI VIZCARRA Rep #: [id number] : 1945 F 72 From: Milo Hughes MD PCP: Octaviano Franco MD, Chi Status: ADM IN Study: Extremity Lower without Contra Date of Exam: 10/25/17 Exam# [id number] Ordering Dr: Douglas Bowman DO STUDY: CT LOWER EXTREMITY WITHOUT CONTRAST RIGHT REASON FOR EXAM: Female, 72 years old. Right lower extremity cellulitis. Prior right ankle ORIF. RADIATION DOSAGE (If Supplied By Facility): CTDIvol = ( 15.35 ) mGy, DLP = ( 915.3 ) mGycm. Individualized dose optimization techniques were used for this CT.? TECHNIQUE: Multiple axial tomographic images were obtained from the knee joint down to the ankle joint without intravenous contrast administration. COMPARISON: None. FINDINGS: There is evidence of diffuse increased markings with areas of confluence in the subcutaneous tissues with overlying skin thickening. This is worse along the posterior medial aspect of the right leg. No focal abscess or fluid collection is seen. There is evidence of a soft tissue defect along the anterior aspect of the mid right leg. Clinical correlation is recommended. Small knee joint effusion. Prior open reduction and fixation of the distal fibula. There is good alignment. CT/Extremity Lower without Contra IMPRESSION: Findings in keeping with diffuse subcutaneous edema and skin thickening with no focal fluid collection or abscess collection. Soft tissue defect along the anterior aspect of the mid leg. Electronically Signed: Milo Hugehs MD at 12:41 EDT Tel [phone], Service support , CC: Douglas Bowman DO; Octaviano Franco MD Induction Machine Setter: Signed CBC W/DIFF, AUTOMATED Collected: 10/25/2017 Status: F Source: [place] 6:00 AM [facility] REPOSITORY TYPE CODE TESTS RESULT OUT OF RANGE REFERENCE UNITS LAB L100.1000 4.4-11.0 K/mm3 High WBC 15.1 LAB L100.1200 4.2-5.4 M/mm3 Low RBC 3.92 LAB L100.1300 12.0-15.0 g/dl Low HGB 9.1 LAB L100.1400 37-47 % Low HCT 30.8 LAB L100.1500 81-99 fL Low MCV 78.6 LAB L100.1600 27.0-32.0 pg Low MCH 23.2 LAB L100.1700 32-36 g/gl Low MCHC 29.5 LAB L100.1810 11.6-14.6 % High RDW CV 20.0 LAB L100.1820 35.1-43.9 fl High RDW SD 56.1 LAB L100.1900 150-450 K/mm3 Normal PLT 216 LAB L100.2000 6.2-12.0 fl Normal MPV 10.1 LAB L100.2100 47-70 % High NEUT% 90.4 LAB L100.2200 19-41 % Low LY% 5.6 LAB L100.2300 0-10 % Normal MONO% 3.6 LAB L100.2400 0-5 % Normal EO% 0.1 LAB L100.2500 0-1 % Normal BASO% 0.1 LAB L100.2550 0.0-0.9 % Normal IM GRAN % 0.200 Result Comment: IG% - Immature Granulocytes (promyelocytes, myelocytes and metamyelocytes) > 1% indicates that a LEFT SHIFT is Present. LAB L100.2620 2.0-7.7 X10 3/uL High Absolute Neut 13.7 LAB L100.2720 0.83-4.51 X10 3/ul Normal Absolute Lymph 0.85 Performed By: #### L100.0100 #### [facility] [address] [place], [address] BASIC METABOLIC Collected: 10/25/2017 Status: F Source: [place] PROFILE (BMP) 6:00 AM [facility] REPOSITORY TYPE CODE TESTS RESULT OUT OF RANGE REFERENCE UNITS LAB L501.0100 74-106 mg/dL High GLU 170 Result Comment: Fasting Glucose result greater than or equal to 126 mg/dL suggests DIABETES MELLITUS per A.D.A. criteria. Please note revised GLUCOSE reference range effective 2017. LAB L501.1000 7-18 mg/dL High BUN 30 LAB L501.1100 0.55-1.02 mg/dL High CREAT,SERUM 1.46 Result Comment: The validity of the calculated GFR AND GFRAA in patients over 70 years has not been determined. Clinical correlation is essential. LAB L501.1110 >60 mL/min Low EST GFR 37 Result Comment: Non- GFR Calc LAB L501.1115 >60 mL/min Low EST GFR - AA 45 Result Comment: GFR Calc LAB L501.1255 ml/min Normal Estimated CRCL 24.65 LAB L501.1300 10-20 RATIO High BUN/CRE 20.5 LAB L501.2200 8.5-10 mg/dL Normal .1 CA 8.8 LAB L501.5300 136-14 mmol/L Normal 5 NA 141 LAB L501.5600 3.5-5. mmol/L Normal 1 K 4.8 LAB L501.5900 98-107 mmol/L Normal CL 107 LAB L501.6100 21.0-3 mmol/L Normal 2.0 CO2 27.0 LAB L501.6200 5-15 Normal GAP 7 Performed By: #### L500.2500 #### [facility] [address] [place], [address] MRSA WOUND DNA BY Collected: 10/25/2017 Status: F Source: [place] PCR 5:35 AM [facility] REPOSITORY Order Comment: Reason for Laboratory Test wound culture - MRSA Comments: rt lower extremity Specimen Source? rt lower extremity TYPE CODE TESTS RESULT OUT OF RANGE REFERENCE UNITS LAB L8200.1100 Negative Normal MRSA Negative RESULT LAB L8200.1150 Negative Normal SA RESULT NEGATIVE Performed By: #### L8200.1075 #### [facility] [address] [place], [address] HISTORY AND PHYSICAL Observed: 10/25/2017 Status: F Source: [place] EXAM 1:58 AM [facility] REPOSITORY [facility] Medical Records Department [address] [place] [address] History and Physical 10/24/17 2150 MR#: [id number] Acct: [id number] Name: NIKKI VIZCARRA Rep #: [id number] : 1945 72 From: Oziel Angel MD PCP: Salvador HATCH,Octaviano Chi Status: ADM IN Location: [address] Problem List (1) PVD (peripheral vascular disease) Status: Chronic (2) Controlled diabetes mellitus Status: Chronic (3) Presence of stent in coronary artery Status: Chronic Comment: PTCA/stent to CX; PTCA/Stent PTCA/stent to prox RCA 05/06; PTCA/LILY in mid to distal RCA 08/29/12 (4) S/P CABG (coronary artery bypass graft) Status: Chronic Comment: CABG x2 ARREGUIN tp LAD and SVG to OM2 01/02/11 (5) Cellulitis of right leg Status: Acute History of Present Illness Date of Admission: 10/25/17 Chief Complaint: right leg pain and redness x 1 day The patient is a 72 year old F with a significant history of CAD status post CABG and 4 stents; CKD; uncontrolled diabetes; paroxysmal A. fib; peripheral vascular disease with chronic bilateral leg wounds who visits our wound clinic; previous DVT in right leg who presents with 1 day history of excruciating sharp pain to her right leg; redness of her right leg; and increased warmth to the same extremity.. Patient is on chronic home Xarelto. At the emergency department patient was found to have leukocytosis of 13.1; and she was started on clindamycin for right leg cellulitis. DVT of her right leg was done. Past Medical History Past Medical History (Chronic Problems): Chronic Problems (Last Reviewed 05/23/17 @ 15:40 by Lisa Hutton) PVD (peripheral vascular disease) (Chronic) Controlled diabetes mellitus (Chronic) Edema, lower extremity (Chronic) Presence of stent in coronary artery (Chronic) PTCA/stent to CX; PTCA/Stent PTCA/stent to prox RCA 05/06; PTCA/LILY in mid to distal RCA 08/29/12 Atherosclerotic heart disease of [place] coronary artery without angina pectoris (Chronic) PTCA/stent to CX; PTCA/Stent PTCA/stent to prox RCA 05/06; PTCA/LILY in mid to distal RCA 08/29/12; CABG x2 ARREGUIN tp LAD and SVG to OM2 01/02/11 S/P CABG (coronary artery bypass graft) (Chronic 01/02/11) CABG x2 ARREGUIN tp LAD and SVG to OM2 01/02/11 Paroxysmal atrial fibrillation (Chronic) Hyperlipidemia (Chronic) Hypertension (Chronic) Medical History: Medical History (Last Reviewed 10/25/17 @ 01:47 by Oziel Angel MD) PVD (peripheral vascular disease) (Chronic) I73.9 Ulcer of left lower extremity with fat layer exposed (Acute) L97.922 Controlled diabetes mellitus (Chronic) E11.9 Edema, lower extremity (Chronic) R60.0 Presence of stent in coronary artery (Chronic) Z95.5 PTCA/stent to CX; PTCA/Stent PTCA/stent to prox RCA 05/06; PTCA/LILY in mid to distal RCA 08/29/12 Atherosclerotic heart disease of [place] coronary artery without angina pectoris (Chronic) I25.10 PTCA/stent to CX; PTCA/Stent PTCA/stent to prox RCA 05/06; PTCA/LILY in mid to distal RCA 08/29/12; CABG x2 ARREGUIN tp LAD and SVG to OM2 01/02/11 Paroxysmal atrial fibrillation (Chronic) I48.0 Hyperlipidemia (Chronic) E78.5 Hypertension (Chronic) 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 Diabetic ulcer of both lower extremities E11.622, L97.919, L97.929 History of DVT (deep vein thrombosis) Z86.718 Multiple sclerosis G35 Trigeminal neuralgia G50.0 Type 2 diabetes mellitus E11.9 LAURITA (obstructive sleep apnea) G47.33 Peripheral vascular disease I73.9 Venous insufficiency of both lower extremities I87.2 Allergies ciprofloxacin [From Cipro] Allergy (Verified 10/24/17 18:39) Hives ciprofloxacin HCl [From Cipro] Allergy (Verified 10/24/17 18:39) Hives Latex, Natural Rubber Allergy (Verified 10/24/17 18:39) Rash Penicillins [PCN] Allergy (Verified 10/24/17 18:39) Hives codeine Adverse Reaction (Unknown, Verified 10/24/17 18:39) Unknown adhesive tape Adverse Reaction (Verified 10/24/17 18:39) Rash Home Medications: Ambulatory Orders Medication Instructions Recorded Docusate Sodium [Colace] 100 mg PO DAILY PRN 05/10/17 Gabapentin [Neurontin] 800 mg PO DAILY 05/10/17 Surgical History: Surgical History (Last Reviewed 10/25/17 @ 01:47 by Oziel Angel MD) S/P CABG (coronary artery bypass graft) (Chronic) Onset Date: 01/02/11 Z95.1 CABG x2 ARREGUIN tp LAD and SVG to OM2 01/02/11 History of cataract surgery Z98.49 History of cholecystectomy Z98.890, Z90.49 History of hernia repair Z98.890, Z87.19 History of tonsillectomy and adenoidectomy Z98.890 History of total hysterectomy Z98.890, Z90.710 Postsurgical percutaneous transluminal coronary angioplasty (PTCA) status Z98.61 PTCA/stent to CX; PTCA/Stent PTCA/stent to prox RCA 05/06; PTCA/LILY in mid to distal RCA 08/29/12 Surgical History: angioplasty, appendectomy, cholecystectomy, coronary bypass surgery, hysterectomy, tonsillectomy, - - R ankle surgery with hardware. placement of stents (cardiac or lower extremity. patient is unsure). excision upper lip carcinoma. Incision and drainage and excisional debridement infected traumatic open hematoma wound right anterior leg (90 cm2) and incision and drainage and excisional debridement infected traumatic open hematoma wound left anterior leg (72 cm2) - 12/29/14. Psychiatric History: No 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 hx CONSULTING SERVICES MANAGER History: No pertinent CONSULTING SERVICES MANAGER history Lives: With Family Smoking Status: Former smoker Alcohol: Occasional - *Family History Maternal Family History: Family History (Last Reviewed 10/25/17 @ 01:48 by Oziel Angel MD) Father Heart disease Mother Hypertension Cancer Brother Diabetes Hypertension History Items: Heart Disease, Hypertension Paternal Family History: Family History (Last Reviewed 10/25/17 @ 01:48 by Oziel Angel MD) Father Heart disease Mother Hypertension Cancer Brother Diabetes Hypertension History Items: Heart Disease, Hypertension, - - skin cancer. Sibling Family History: Family History (Last Reviewed 10/25/17 @ 01:48 by Oziel Angel MD) Father Heart disease Mother Hypertension Cancer Brother Diabetes Hypertension History Items: Diabetes Review of Systems Constitutional: Denies: Chills, Fever, Weight Change HEENT: Denies: Head Aches, Sinus Congestion, Sinus Drainage Cardiovascular: Denies: Chest Pain, Palpitations Respiratory: Denies: Cough, Shortness of breath at rest, Sputum production Gastrointestinal: Reports: Nausea. Denies: Abdominal Pain, Vomiting Genitourinary: Denies: Dysuria Musculoskeletal: Reports: Leg Pain. Denies: Joint Pain Skin: Reports: Wounds - Bilateral legs. Denies: Rash Neurological: Denies: Numbness, Tingling, Focal weakness Psychiatric: Denies: Anxiety, Depression, Homicidal Ideations, Suicidal Ideations Hematologic/ Lymphatic: Denies: Easy Bruising, Easy Bleeding VTE Information - Inpt Only VTE Present on Admission: No VTE Mechan Device Prophylaxis: None VTE Pharm Prophylaxis ordered?: No Reason prophylaxis not ordered:: Treatment Not Indicated - On home Xarelto therapy which was continued. Patient Problems: Active and Suspected Problems (Last Reviewed 05/23/17 @ 15:40 by Lisa Hutton) Cellulitis of right leg (Acute) - Physical Exam General: Alert, Oriented x3, Cooperative HEENT: Atraumatic, PERRLA, EOMI, Normocephalic Neck: Supple, No JVD, Negative Carotid Bruits Lungs: Clear to auscultation, Normal air movement Cardiovascular: Regular rate Abdomen: Bowel Sounds Present, Soft, Non Tender Extremities: Tenderness - Right leg, - - Erythema of right leg Skin: Ulcer/ Wound - Bilateral leg wounds Musculoskeletal: No Tenderness to Palpation of Joints or Extremities Neurological: Cranial nerves II-XII grossly intact Psych/Mental Status: Normal Affect Vital Signs Temp Pulse Resp BP Pulse Ox 98.3 F 77 18 100/58 L 96 10/24/17 21:00 10/24/17 21:00 10/24/17 21:00 10/24/17 21:00 10/24/17 21:00 Oxygen Flow Rate (L/min) 2 Oxygen Delivery Method Room Air Weight: 103.3 kg Body Mass Index (BMI) 44.4 Finger Stick Blood Glucose 187 Laboratory Tests Past 24 Hrs WBC 13.1 H RBC 4.54 Hgb 10.2 L Hct 35.2 L MCV 77.5 L MCH 22.5 L MCHC 29.0 L RDW 19.6 H RDW Differential 56.2 H WBC RBC Hgb Hct MCV MCH MCHC RDW RDW Differential Plt Count MPV Immature Gran % (Auto) Neut % (Auto) Assessment/Plan All Active Problems (Last Reviewed 05/23/17 @ 15:40 by Lisa Hutton) Ulcer of right lower extremity with fat layer exposed (Acute) Cellulitis of right leg (Acute) Ulcer of left lower extremity with fat layer exposed (Acute) The patient is a 72 year old F with a significant history of CAD status post CABG and 4 stents; CKD stage IIIB; controlled diabetes; paroxysmal A. fib; peripheral vascular disease with chronic bilateral leg wounds who visits our wound clinic; previous DVT in right leg who presents with 1 day history of excruciating sharp pain to her right leg; redness of her right leg; and increased warmth to the same extremity concerning for right leg cellulitis.. Right leg cellulitis. Received clindamycin at emergency department. Patient is allergic to penicillin Blood cultures are pending. Vancomycin and Unasyn ordered. Trend CBC and BMP Home tramadol for pain As needed morphine Doppler ultrasound of right leg pending. Bilateral leg wounds Wound care consult. Diabetes Controlled Patient reported previously she was admitted for but now she is no longer on metformin. Trend BMP. Hypertension Blood pressure within goal at the time of admission Metoprolol continued. Trend blood pressures. CKD stage IIIb Her creatinine is stable compared to baseline. Paroxysmal A. fib Patient is sinus rhythm at the time of admission. Amiodarone and Xarelto continued. DVT prophylaxis Not indicated. Patient on Xarelto Code Visit Inpatient E AND M: 13375 Init Hosp L3 10/25/17 0158 <Electronically signed by Oziel Angel MD> Date Oziel Angel MD Cosigner Signature: Date (if applicable) CC: Oziel Angel MD; Octaviano Franco MD Signed EMERGENCY DEPARTMENT Observed: 10/25/2017 Status: F Source: [place] SUMMARY 1:10 AM [facility] REPOSITORY [facility] Medical Records Department [address] [place] [address] Emergency Department Summary 10/24/171948 MR#: [id number] Acct: [id number] Name: NIKKI VIZCARRA Rep #: [id number] : 1945 72 From: Jessy Mendoza MD PCP: Octaviano Franco MD, Chi Status: ADM IN - ER Visit Summary Date of Service: 10/24/17 Chief Complaint: Right leg pain and swelling History of Present Illness: The patient is a 72 F with multiple medical comorbidities including chronic lower extremity edema and poorly healing ulcers, chronic kidney disease and diabetes, presents for 1 day of right lower leg pain and swelling. Patient normally keeps her legs wrapped with compression stockings in place. She is on diuretics to help with peripheral edema. Today her right leg became swollen, erythematous, and painful. Pain radiates up to the medial distal thigh. Patient unable to bear weight or walk secondary to pain. Denies fever at home but states she had a fever in triage. She denies any chest pain, shortness of breath, abdominal pain, nausea or vomiting or other symptoms other than the leg discomfort. Physical Examination: Vital signs: Temperature 100.0, hemodynamically stable, no hypoxia on room air General: well nourished, well developed, in no distress, laying in bed Skin: warm, dry, no rash, no pallor, bilateral lower extremities with scarring, ulcerations, edema, right lower extremity has significant pitting edema below the knee, erythema, dusky area to the medial mid cabrera with serous fluid draining, leg very tender to palpation, erythema extends to the medial thigh HEENT: normocephalic and atraumatic; PERRL, EOMI, moist mucous membranes Cardiovascular: regular rate and rhythm without murmurs, no peripheral edema, 2+ pulses all distal extremities Respiratory: No increased work of breathing, lungs are clear to auscultation bilaterally, no rales, rhonchi or wheezing Abdominal: Abdomen is soft, nontender with normoactive bowel sounds, no guarding or rebound, no masses MSK: Moves all extremities, no deformities, normal strength Neuro: Awake and alert, oriented 4. No facial droop, sensation and motor function intact and symmetric Test Results: Abnormal Lab Results WBC 13.1 H RBC 4.54 Hgb 10.2 L Hct 35.2 L MCV 77.5 L MCH 22.5 L MCHC 29.0 L RDW 19.6 H RDW Differential 56.2 H WBC RBC Hgb Hct MCV MCH MCHC RDW RDW Differential Plt Count MPV Immature Gran % (Auto) Neut % (Auto) Clinical Impression(s) from Imaging Studies Tibia/Fibula X-Ray 10/24/17 19:48 IMPRESSION: There is soft tissue edema. Skin irregularity laterally. Electronically Signed: Eric Pollard DO at 21:23 EDT Tel [phone], Service support , Chest X-Ray 10/24/17 20:05 IMPRESSION: Prominent cardiac shadow. Minimal basilar atelectasis. Electronically Signed: Eric Pollard DO at 21:26 EDT Tel [phone], Service support , Emergency Department Course and Treatment: Patient's leg is concerning for cellulitis versus DVT. She has a history of both in that leg. X-ray was performed to evaluate for any subcutaneous gas or osteomyelitis, and no concerning findings were noted. An ultrasound was ordered to evaluate for DVT. Patient's medication list did note patient is on Xarelto, and thus it is unlikely that she has a DVT as she is Stuart on anticoagulation. Workup was performed showing a leukocytosis of 13.1, a normal lactate 1.5, and creatinine 1.45. Patient was started on clindamycin for coverage of cellulitis. She is allergic to penicillins. Given the extent of patient's lower extremity cellulitis in her multiple medical comorbidities, she would benefit from inpatient management of her cellulitis and IV antibiotics. Patient was discussed with the hospitalist and admitted. Treatment Plan: [] Disposition: [] Impression: Right lower extremity cellulitis This note was generated with [employer] dictation software. It may contain incorrect words, spelling, and punctuation that were not noted in review of the chart prior to signing ED Disposition - Plan for ED Patient: Disposition: Acute Care Hospital [facility] Chief Complaint: Cellulitis What to do if you have Problems For any increased pain, shortness of breath, bleeding, nausea or vomiting, chest pain, or any unexpected problems, contact your Primary Care Provider. Call [facility] ([phone]) or report to the closest Emergency Room. Call 911 if necessary. 10/25/17 0110 <Electronically signed by Jessy Mendoza MD> Date Jessy Mendoza MD Cosigner Signature (If Indicated): Date CC: Octaviano Franco MD VENOUS DUPLEX Observed: 10/24/2017 Status: F Source: [place] IMAG/LIMITED/UNI 9:57 PM [facility] [facility] [address] [place] [address] Venous Duplex Imag/Limited/Uni MR#: [id number] Acct: [id number] Name: NIKKI VIZCARRA Rep #: [id number] : 1945 F 72 From: Lexi Marina MD PCP: Octaviano Franco MD, Chi Status: ADM IN Study: Venous Duplex Imag/Limited/Uni Date of Exam: 10/24/17 Exam# [id number] Ordering Dr: Jessy Mendoza MD STUDY: VENOUS DOPPLER ULTRASOUND - RIGHT LOWER EXTREMITY REASON FOR EXAM: Female, 72 years old. Right-sided leg pain. TECHNIQUE: Ultrasound evaluation of the deep vein system to include mota-scale imaging and compression was performed. Mota-scale imaging and Doppler sonographic evaluation, including duplex spectral analysis and qualitative color flow sonography, was performed. Study is technically limited due to patient condition. COMPARISON: None. FINDINGS: Common Femoral Vein: Normal compression, spontaneity and augmentation. Normal color Doppler. Common Femoral Vein/Greater Saphenous Junction: Normal compression, spontaneity and augmentation. Normal color Doppler. Femoral Proximal: Normal compression. Femoral Middle: Normal compression, spontaneity and augmentation. Normal color Doppler. Femoral Distal: Normal compression. Popliteal Vein: Normal color Doppler. Posterior Tibial Vein: Normal color Doppler. Peroneal Vein: Normal color Doppler. This is a technically incomplete study and deep venous thrombosis is not excluded. US/Venous Duplex Imag/Limited/Uni IMPRESSION: No sonographic evidence for deep venous thrombosis of the right common femoral or superficial femoral vein. Electronically Signed: Lexi Marina MD at 2:18 EDT , Service support , CC: Jessy Mendoza MD; Octaviano Franco MD Induction Machine Setter: Signed Observed: 10/24/2017 Status: F Source: [place] CULTURE, BLOOD (WB) 8:28 PM [facility] BC No growth in 5 days. Performed By: #### M200.1000 #### [facility] [place], [address] URINALYSIS, COMPLETE Collected: 10/24/2017 Status: F Source: [place] 8:20 PM [facility] Order Comment: How was Urine Obtained? HOUSING LIAISON TO SPECIFY TYPE CODE TESTS RESULT OUT OF RANGE REFERENCE UNITS LAB L400.3000 Yellow COLOR Normal Yellow LAB L400.3050 Clear Normal CLARITY Clear LAB L400.3200 Normal mg/dl Normal GLUCOSE, UR Normal LAB L400.3300 Negative mg/dL Normal BILIRUBIN URINE Negative LAB L400.3400 Negative mg/dl Normal KETONE UR Negative LAB L400.3465 1.002-1.030 Normal SP.GR. DIPSTX 1.015 LAB L400.3550 5.0 - 8.0 pH UR Normal 5.0 LAB L400.3600 Negative mg/dl High PROT 15 DIPSTX LAB L400.3700 Normal mg/dl Normal UROBILI Normal LAB L400.3750 Negative Normal NITRITE UR Negative LAB L400.3780 Negative /ul High 25 OCCULT BLOOD-UR LAB L400.3800 Negative /ul High LEUK 25 ESTERASE LAB L400.4050 0-5 /hpf WBC Normal 0-5 SEEN LAB L400.4100 0-5 /hpf 0 Normal RBC-UA SEEN LAB L400.4150 5-10 /hpf SQUAM 0 Normal EPI SEEN LAB L400.4300 None Seen /hpf Normal BACTERIA RARE LAB L400.4350 <or=2+ /hpf Normal MUCUS, URINE RARE Performed By: #### L400.0001 #### [facility] [address] [place], [address] Observed: 10/24/2017 Status: F Source: [place] CULTURE, URINE 8:20 PM [facility] Urine Culture ORGANISM 1: Presumptive E. coli [place] Count 80,000-100,000 Presumptive E. coli: REACTION Amoxacillin/Clavulanic Acid $ 8 S Ampicillin $ >=32 R Ampicillin/Sulbactam $ >=32 R Cefazolin $ <=4 S Cefepime $ <=1 S Ceftriaxone $ <=1 S Ciprofloxacin $ <=0.25 S ESBL - Ertapenim $$$ <=0.5 S Gentamicin $ >=16 R Imipenem *NF <=0.25 S Levofloxacin $ <=0.12 S Nitrofurantoin $ <=16 S Piperacillin/Tazobactam $$ <=4 S Tobramycin $ 4 S Trimethoprim/Sulfametho $ >=320 R (NF) indicates non-formulary drug at [facility]. Approval by Infectious Disease Specialist required before non-formulary drugs may be ordered and/or dispensed. Performed By: #### M100.0650 #### [facility] [address] [place], [address] TIBIA AND FIBULA Observed: 10/24/2017 Status: F Source: [place] 2 VIEWS 7:49 PM [facility] [address] [place] [address] Tibia AND Fibula 2 Views MR#: [id number] Acct: [id number] Name: NIKKI VIZCARRA Rep #: [id number] : 1945 F 72 From: Eric Pollard DO PCP: Salvador HATCH,Octaviano Logan Status: REG ER Study: Tibia AND Fibula 2 Views Date of Exam: 10/24/17 Exam# [id number] Ordering Dr: Jessy Mendoza MD STUDY: X-RAY - RIGHT TIBIA AND FIBULA REASON FOR EXAM: Female, 72 years old. Redness, swelling TECHNIQUE: 2 view(s) of the tibia and fibula were obtained. COMPARISON: None. FINDINGS: Normal visualized tibia. Previous ORIF involving the distal portion of the fibula. Soft tissue edema is noted. There is skin irregularity laterally. RAD/Tibia AND Fibula 2 Views IMPRESSION: There is soft tissue edema. Skin irregularity laterally. Electronically Signed: Eric Pollard DO at 21:23 EDT Tel [phone], Service support , CC: Jessy Mendoza MD; Octaviano Franco MD Induction Machine Setter: Signed CHEST 1 VIEW Observed: 10/24/2017 Status: F Source: [place] (PORTABLE) 7:49 PM [facility] [place] [address] Chest 1 View (Portable) MR#: [id number] Acct: [id number] Name: NIKKI VIZCARRA Rep #: [id number] : 1945 F 72 From: Eric Pollard DO PCP: Octaviano Franco MD, Chi Status: REG ER Study: Chest 1 View (Portable) Date of Exam: 10/24/17 Exam# [id number] Ordering Dr: Jessy Mendoza MD STUDY: X-RAY CHEST REASON FOR EXAM: Female, 72 years old. Shortness of breath TECHNIQUE: Single frontal view COMPARISON: May 10, 2017 FINDINGS: Stable sternotomy wires. The lungs are expanded. Minimal basilar atelectasis. Prominent cardiac shadow. Normal mediastinum and alee. Normal visualized pulmonary arteries. Normal visualized aortic arch and descending thoracic aorta. Degenerative changes of the visualized thoracic spine. Normal visualized ribs, clavicles, and shoulders. There is no demonstrated abnormality of the visualized soft tissue structures of the upper abdomen. RAD/Chest 1 View (Portable) IMPRESSION: Prominent cardiac shadow. Minimal basilar atelectasis. Electronically Signed: Eric Pollard DO at 21:26 EDT Tel [phone], Service support , CC: Jessy Mendoza MD; Octaviano Franco MD Induction Machine Setter: Signed CBC W/DIFF, AUTOMATED Collected: 10/24/2017 Status: F Source: [place] 7:20 PM [facility] TYPE CODE TESTS RESULT OUT OF RANGE REFERENCE UNITS LAB L100.1000 4.4-11.0 K/mm3 High WBC 13.1 LAB L100.1200 4.2-5.4 M/mm3 Normal RBC 4.54 LAB L100.1300 12.0-15.0 g/dl Low HGB 10.2 LAB L100.1400 37-47 % Low HCT 35.2 LAB L100.1500 81-99 fL Low MCV 77.5 LAB L100.1600 27.0-32.0 pg Low MCH 22.5 LAB L100.1700 32-36 g/gl Low MCHC 29.0 LAB L100.1810 11.6-14.6 % High RDW CV 19.6 LAB L100.1820 35.1-43.9 fl High RDW SD 56.2 LAB L100.1900 150-450 K/mm3 Normal PLT 229 LAB L100.2000 6.2-12.0 fl Normal MPV 10.0 LAB L100.2100 47-70 % High NEUT% 90.6 LAB L100.2200 19-41 % Low LY% 6.8 LAB L100.2300 0-10 % Normal MONO% 2.4 LAB L100.2400 0-5 % Normal EO% 0.1 LAB L100.2500 0-1 % Normal BASO% 0.0 LAB L100.2550 0.0-0.9 % Normal IM GRAN % 0.100 Result Comment: IG% - Immature Granulocytes (promyelocytes, myelocytes and metamyelocytes) > 1% indicates that a LEFT SHIFT is Present. LAB L100.2620 2.0-7.7 X10 3/uL High Absolute Neut 11.9 LAB L100.2720 0.83-4.51 X10 3/ul Normal Absolute Lymph 0.89 Performed By: #### L100.0100 #### [facility] [address] [facility]. [place], [place], [address] PROTHROMBIN TIME W/INR Collected: 10/24/2017 Status: F Source: [place] 7:20 PM [facility] TYPE CODE TESTS RESULT OUT OF RANGE REFERENCE UNITS LAB L300.4150 11.7-14.9 SECONDS High PROTIME 26.2 LAB L300.4200 Normal INR 2.4 Performed By: #### L300.3900, L300.4310 #### [facility] [address] [facility]. [place], [place], [address] PARTIAL THROMBOPLAST Collected: 10/24/2017 Status: F Source: [place] TIME 7:20 PM [facility] TYPE CODE TESTS RESULT OUT OF RANGE REFERENCE UNITS LAB L300.4310 24.1-36.2 Seconds Normal PTT 33.2 Performed By: #### L300.3900, L300.4310 #### [facility] [place] [address] [place], [address] COMPREHENSIVE METABOLIC Collected: 10/24/2017 Status: F Source: [place] PROFIL 7:20 PM [facility] TYPE CODE TESTS RESULT OUT OF RANGE REFERENCE UNITS LAB L501.0100 74-106 mg/dL Normal GLU 104 Result Comment: Fasting Glucose result from 100 to 125 mg/dL suggests IMPAIRED HOMEOSTASIS per A.D.A. criteria. Please note revised GLUCOSE reference range effective 2017. LAB L501.1000 7-18 mg/dL High BUN 29 LAB L501.1100 0.55-1.02 mg/dL High CREAT,SERUM 1.45 Result Comment: The validity of the calculated GFR AND GFRAA in patients over 70 years has not been determined. Clinical correlation is essential. LAB L501.1110 >60 mL/min Low EST GFR 38 Result Comment: Non- GFR Calc LAB L501.1115 >60 mL/min Low EST GFR - AA 45 Result Comment: GFR Calc LAB L501.1255 ml/min Normal Estimated CRCL 24.82 LAB L501.1300 10-20 RATIO Normal BUN/CRE 20.0 LAB L501.1500 6.4-8. g/dL Low 2 T PROT 6.2 LAB L501.1800 3.2-5. g/dL Low 0 ALB 2.9 LAB L501.1950 2.2-4. g/dL Normal 2 GLOB 3.3 LAB L501.2000 0.9-2. RATIO Normal 4 A/G 0.9 LAB L501.2200 8.5-10 mg/dL Normal .1 CA 8.8 LAB L501.4100 15-37 U/L Normal AST 15 LAB L501.4305 45-117 U/L Normal ALK P 52 LAB L501.4405 13-56 U/L Normal ALT 34 LAB L501.4600 0.20-1 mg/dL Normal .00 T BILI 0.90 LAB L501.5300 136-14 mmol/L Normal 5 NA 141 LAB L501.5600 3.5-5. mmol/L Normal 1 K 4.3 LAB L501.5900 98-107 mmol/L Normal CL 105 LAB L501.6100 21.0-3 mmol/L Normal 2.0 CO2 26.0 LAB L501.6200 5-15 Normal GAP 10 Performed By: #### L500.4050, L501.4010 #### [facility] [address] [place], [address] TROPONIN-I Collected: 10/24/2017 Status: F Source: [place] 7:20 PM [facility] TYPE CODE TESTS RESULT OUT OF RANGE REFERENCE UNITS LAB L501.4010 <0.045 ng/mL Normal 0.017 TROPONIN-I Result Comment: TROPONIN-I EXPECTED VALUES <0.045 Negative 0.045 - 0.590 Consistent with Cardiac Damage > OR = 0.600 Critical Value Not every elevated troponin is indicative of HI. These values should be used with clinical judgement in examining the patient's clinical picture for diagnosis. To establish a diagnosis of HI versus myocardial injury, there must be a demonstrated rise and/or fall in the troponin values, in addition to ischemic symptoms, EKG changes, new regional wall motion abnormality, and/or angiographical evidence. PLEASE NOTE: REFERENCE RANGES EDITED 17 Performed By: #### L500.4050, L501.4010 #### [facility] [address] [place], [place], [address] LACTIC ACID Collected: 10/24/2017 Status: F Source: [place] 7:20 PM [facility] Order Comment: Yes/No query for Sepsis Lactate Rule Y TYPE CODE TESTS RESULT OUT OF RANGE REFERENCE UNITS LAB L503.6005 0.4-2.0 mmol/L Normal LACTIC ACID 1.5 Performed By: #### L503.6005 #### [facility] [address] [place], [address] Observed: 10/24/2017 Status: F Source: [place] CULTURE, BLOOD (WB) 7:20 PM [facility] BC No growth in 5 days. Performed By: #### M200.1000 #### [facility] [address] [place], [address] HH, HEMOGLOBIN AND Collected: 10/13/2017 Status: F Source: [place] HEMATOCRIT 2:04 PM [facility] Order Comment: RENAL TO [facility] [place] TYPE CODE TESTS RESULT OUT OF RANGE REFERENCE UNITS LAB L100.1300 12.0-15.0 g/dl Low HGB 10.2 LAB L100.1400 37-47 % Low HCT 34.7 Performed By: #### L100.0600 #### [facility] [address] [place], [address] RENAL PROFILE Collected: 10/13/2017 Status: F Source: [place] 2:04 PM [facility] Order Comment: RENAL TO [facility] [place] TYPE CODE TESTS RESULT OUT OF RANGE REFERENCE UNITS LAB L501.0100 74-106 mg/dL Normal GLU 102 Result Comment: Fasting Glucose result from 100 to 125 mg/dL suggests IMPAIRED HOMEOSTASIS per A.D.A. criteria. Please note revised GLUCOSE reference range effective 2017. LAB L501.1000 7-18 mg/dL High BUN 32 LAB L501.1100 0.55-1.02 mg/dL High CREAT,SERUM 1.73 Result Comment: The validity of the calculated GFR AND GFRAA in patients over 70 years has not been determined. Clinical correlation is essential. LAB L501.1110 >60 mL/min Low EST GFR 31 Result Comment: Non- GFR Calc LAB L501.1115 >60 mL/min Low EST GFR - AA 37 Result Comment: GFR Calc LAB L501.1300 10-20 RATIO Normal BUN/CRE 18.5 LAB L501.1800 3.2-5.0 g/dL Normal ALB 3.2 LAB L501.2200 8.5-10.1 mg/dL CA Normal 9.1 LAB L501.2300 2.5-4.9 mg/dL Normal PHOS 2.8 LAB L501.5300 136-145 mmol/L NA Normal 145 LAB L501.5600 3.5-5.1 mmol/L K Normal 4.0 LAB L501.5900 98-107 mmol/L High CL 111 LAB L501.6100 21.0-32.0 mmol/L Normal CO2 25.0 Performed By: #### L500.3600 #### [facility] [address] [place], [address] TYPE AND SCREEN Collected: 10/11/2017 Status: P Source: [place] 11:09 AM [facility] Order Comment: CMV NEG?* N Give When? When Ready Irradiated? N Leukodepleted? Y Reason for Type AND Screen/Red Cells: ANEMIA TYPE CODE TESTS RESULT OUT OF RANGE REFERENCE UNITS LAB B10.0800 A Normal BLOOD TYPE GEL POSITIVE LAB B100.4000 Normal Antibody NEGATIVE Screen Performed By: #### B101.7450 #### [facility] [address] [place] [address]. [place], [address] TYPE AND SCREEN Collected: 10/11/2017 Status: F Source: [place] 11:09 AM [facility] Order Comment: CMV NEG?* N Give When? When Ready Irradiated? N Leukodepleted? Y Reason for Type AND Screen/Red Cells: ANEMIA TYPE CODE TESTS RESULT OUT OF RANGE REFERENCE UNITS LAB B10.0800 A Normal BLOOD TYPE GEL POSITIVE LAB B100.4000 Normal Antibody NEGATIVE Screen Performed By: #### B101.7450 #### [facility] [facility]. [place], [place], [address] RC Collected: 10/11/2017 Status: F Source: [place] 11:09 AM [facility] TYPE CODE TESTS RESULT OUT OF REFERENCE UNITS RANGE LAB U100.0000 [id number] TRANSFUSED PRODUCT: T AND S with Crossmatch, Red Cells COUNT: 2 Performed By: #### U100.0000 #### [facility] - refer to report for specific site COMPREHENSIVE METABOLIC Collected: 10/10/2017 Status: F [facility] TYPE CODE TESTS RESULT OUT OF RANGE REFERENCE UNITS LAB L501.0100 74-106 mg/dL High GLU 157 Result Comment: Fasting Glucose result greater than or equal to 126 mg/dL suggests DIABETES MELLITUS per A.D.A. criteria. Please note revised GLUCOSE reference range effective 2017. LAB L501.1000 7-18 mg/dL High BUN 44 LAB L501.1100 0.55-1.02 mg/dL High CREAT,SERUM 2.32 Result Comment: The validity of the calculated GFR AND GFRAA in patients over 70 years has not been determined. Clinical correlation is essential. LAB L501.1110 >60 mL/min Low EST GFR 22 Result Comment: Non- GFR Calc LAB L501.1115 >60 mL/min Low EST GFR - AA 26 Result Comment: GFR Calc LAB L501.1300 10-20 RATIO Normal BUN/CRE 19.0 LAB L501.1500 6.4-8.2 g/dL Low T PROT 6.3 LAB L501.1800 3.2-5.0 g/dL Normal ALB 3.2 LAB L501.1950 2.2-4.2 g/dL Normal GLOB 3.1 LAB L501.2000 0.9-2.4 RATIO Normal A/G 1.0 LAB L501.2200 8.5-10.1 mg/dL CA Normal 9.2 LAB L501.4100 15-37 U/L Low AST 14 Result Comment: Moderate Hemolysis, Result may be falsely increased. LAB L501.4305 45-117 U/L Normal ALK P 48 LAB L501.4405 13-56 U/L Normal ALT 25 LAB L501.4600 0.20-1.00 mg/dL Normal T BILI 0.60 LAB L501.5300 136-145 mmol/L Normal NA 140 LAB L501.5600 3.5-5.1 mmol/L Normal K 5.0 Result Comment: Moderate Hemolysis, Result may be falsely increased. LAB L501.5900 98-107 mmol/L Normal CL 106 LAB L501.6100 21.0-32.0 mmol/L Normal CO2 22.0 LAB L501.6200 5-15 Normal GAP 12 Performed By: #### L500.4050, L500.4100, L501.9520 #### [facility] [address] [place], [address] LIPID PROFILE Collected: 10/10/2017 Status: F Source: [place] 2:04 PM [facility] TYPE CODE TESTS RESULT OUT OF RANGE REFERENCE UNITS LAB L501.4900 200 mg/dL High CHOL 209 Result Comment: <200 mg/dL Desirable 200-240 mg/dL Borderline >240 mg/dL High Risk LAB L501.5000 mg/dL High TRIG 210 Result Comment: The drugs N-Acetylcysteine and Metamizole may falsely depress this assay. Serum Triglycerides Reference Interval Normal <150 mg/dL Borderline high 150 - 199 mg/dL High 200 - 499 mg/dL Very High > or = 500 mg/dL LAB L501.6400 mg/dL Normal HDL 48 Result Comment: The drugs N-Acetylcysteine and Metamizole may falsely depress this assay. Reference Range HDL <40 mg/dL Low HDL Cholesterol HDL >or= 60 mg/dL High HDL Cholesterol LAB L501.6500 0-130 mg/dL Normal LDL 119 LAB L501.6600 5-40 mg/dL High VLDL 42 Performed By: #### L500.4050, L500.4100, L501.9520 #### [facility] [address] [place], [place], [address] THYROID STIM HORMONE Collected: 10/10/2017 Status: F Source: [place] (TSH) 2:04 PM [facility] TYPE CODE TESTS RESULT OUT OF RANGE REFERENCE UNITS LAB L501.9520 0.358-3.74 uIU/mL Normal TSH 0.80 Performed By: #### L500.4050, L500.4100, L501.9520 #### [facility] [address] [place], [address] CBC W/DIFF, AUTOMATED Collected: 10/10/2017 Status: F Source: [place] 2:04 PM [facility] TYPE CODE TESTS RESULT OUT OF RANGE REFERENCE UNITS LAB L100.1000 4.4-11.0 K/mm3 High WBC 11.2 LAB L100.1200 4.2-5.4 M/mm3 Low RBC 3.71 LAB L100.1300 12.0-15.0 g/dl Low HGB 7.9 LAB L100.1400 37-47 % Low HCT 28.5 LAB L100.1500 81-99 fL Low MCV 76.8 LAB L100.1600 27.0-32.0 pg Low MCH 21.3 LAB L100.1700 32-36 g/gl Low MCHC 27.7 LAB L100.1810 11.6-14.6 % High RDW CV 19.0 LAB L100.1820 35.1-43.9 fl High RDW SD 53.6 LAB L100.1900 150-450 K/mm3 High PLT 451 LAB L100.2000 6.2-12.0 fl Normal MPV 9.2 LAB L100.2100 47-70 % High NEUT% 78.9 LAB L100.2200 19-41 % Low LY% 12.9 LAB L100.2300 0-10 % Normal MONO% 7.0 LAB L100.2400 0-5 % Normal EO% 0.4 LAB L100.2500 0-1 % Normal BASO% 0.2 LAB L100.2550 0.0-0.9 % Normal IM GRAN % 0.600 Result Comment: IG% - Immature Granulocytes (promyelocytes, myelocytes and metamyelocytes) > 1% indicates that a LEFT SHIFT is Present. LAB L100.2620 2.0-7.7 X10 3/uL High Absolute Neut 8.8 LAB L100.2720 0.83-4.51 X10 3/ul Normal Absolute Lymph 1.44 Performed By: #### L100.0100 #### [facility] [address] [place], [address] SHOULDER MIN 2 VIEWS Observed: 10/05/2017 Status: F Source: [place] 12:14 PM [facility] Imaging Services [address] [place] [address] Shoulder min 2 Views MR#: [id number] Acct: [id number] Name: NIKKI VIZCARRA Rep #: [id number] : 1945 F 72 From: Lester Maurer MD PCP: Salvador HATCH,Octaviano Logan Status: REG CLI Study: Shoulder min 2 Views Date of Exam: 10/05/17 Exam# [id number] Ordering Dr: Octaviano Franco MD STUDY: X-RAY - LEFT SHOULDER REASON FOR EXAM: Female, 72 years old. Chronic pain TECHNIQUE: 4 view(s) of the shoulder. COMPARISON: None. FINDINGS: Normal glenohumeral articulation. Normal acromioclavicular joint. Normal acromion. Normal humeral head and visualized proximal humerus. There is a corticated calcification superolateral to left humeral head measuring 2.2 x 0.8 cm. Normal visualized pulmonary apex. RAD/Shoulder min 2 Views IMPRESSION: Corticated calcifications superolateral to the left humeral head measuring 2.2 x 0.8 cm suggestive of chondrocalcinosis. This is new from the previous study. The osseous structures and articular surfaces of the left shoulder itself appear within normal limits. Electronically Signed: Lester Maurer MD at 17:08 EDT , Service support , CC: Octaviano Franco MD Induction Machine Setter: Signed SHOULDER MIN 2 VIEWS Observed: 10/05/2017 Status: F Source: [place] 12:14 PM [facility] Imaging Services [address] [place] [address] Shoulder min 2 Views MR#: [id number] Acct: [id number] Name: NIKKI VIZCARRA Rep #: [id number] : 1945 F 72 From: Lester Maurer MD PCP: Octaviano Franco MD, Chi Status: REG CLI Study: Shoulder min 2 Views Date of Exam: 10/05/17 Exam# [id number] Ordering Dr: Octaviano Franco MD STUDY: X-RAY - RIGHT SHOULDER REASON FOR EXAM: Female, 72 years old. Chronic pain TECHNIQUE: 4 view(s) of the shoulder. COMPARISON: Prior study of 04/18/2013 FINDINGS: Normal glenohumeral articulation. Normal acromioclavicular joint. Normal acromion. Normal humeral head and visualized proximal humerus. The soft tissue structures are unremarkable. Normal visualized pulmonary apex. RAD/Shoulder min 2 Views IMPRESSION: Normal x-ray examination of the shoulder. Electronically Signed: Lester Maurer MD at 17:11 EDT , Service support , CC: Octaviano Franco MD Induction Machine Setter: Signed RENAL PROFILE Collected: 10/04/2017 Status: F Source: [place] 12:59 PM [facility] TYPE CODE TESTS RESULT OUT OF RANGE REFERENCE UNITS LAB L501.0100 74-106 mg/dL Normal GLU 105 Result Comment: Fasting Glucose result from 100 to 125 mg/dL suggests IMPAIRED HOMEOSTASIS per A.D.A. criteria. Please note revised GLUCOSE reference range effective 2017. LAB L501.1000 7-18 mg/dL High BUN 50 LAB L501.1100 0.55-1.02 mg/dL High CREAT,SERUM 2.84 Result Comment: The validity of the calculated GFR AND GFRAA in patients over 70 years has not been determined. Clinical correlation is essential. LAB L501.1110 >60 mL/min Low EST GFR 17 Result Comment: Non- GFR Calc LAB L501.1115 >60 mL/min Low EST GFR - AA 21 Result Comment: GFR Calc LAB L501.1300 10-20 RATIO Normal BUN/CRE 17.6 LAB L501.1800 3.2-5.0 g/dL Normal ALB 3.4 LAB L501.2200 8.5-10.1 mg/dL CA Normal 9.3 LAB L501.2300 2.5-4.9 mg/dL Normal PHOS 3.6 LAB L501.5300 136-145 mmol/L NA Normal 141 LAB L501.5600 3.5-5.1 mmol/L High K 5.2 LAB L501.5900 98-107 mmol/L CL Normal 104 LAB L501.6100 21.0-32.0 mmol/L Normal CO2 26.0 Performed By: #### L500.3600 #### [facility] [address] [place], [address] Observed: 10/04/2017 Status: F Source: [place] CULTURE, URINE 12:59 PM [facility] Urine Culture ORGANISM 1: Presumptive E. coli [place] Count 50,000-80,000 Presumptive E. coli: REACTION Amoxacillin/Clavulanic Acid $ 4 S Ampicillin $ >=32 R Ampicillin/Sulbactam $ 16 I Cefazolin $ <=4 S Cefepime $ <=1 S Ceftriaxone $ <=1 S Ciprofloxacin $ <=0.25 S ESBL - Ertapenim $$$ <=0.5 S Gentamicin $ >=16 R Imipenem *NF <=0.25 S Levofloxacin $ <=0.12 S Nitrofurantoin $ <=16 S Piperacillin/Tazobactam $$ <=4 S Tobramycin $ 4 S Trimethoprim/Sulfametho $ >=320 R (NF) indicates non-formulary drug at [facility]. Approval by Infectious Disease Specialist required before non-formulary drugs may be ordered and/or dispensed. Performed By: #### M100.0650 #### [facility] [address] [place], [place], [address] LUMBAR SPINE 2 OR 3 Observed: 08/24/2017 Status: F Source: [place] VIEWS 9:52 AM [facility] Imaging Services [address] [place] [address] Lumbar Spine 2 or 3 Views MR#: [id number] Acct: [id number] Name: NIKKI VIZCARRA Rep #: [id number] : 1945 F 72 From: Lester Maurer MD PCP: Salvador HATCH,Octaviano Logan Status: REG CLI Study: Lumbar Spine 2 or 3 Views Date of Exam: 08/24/17 Exam# [id number] Ordering Dr: Octaviano Franco MD STUDY: X-RAY - LUMBAR SPINE REASON FOR EXAM: Female, 72 years old. Low back pain TECHNIQUE: 3 view(s) of the lumbar spine were obtained. COMPARISON: Previous study of 01/11/2017 FINDINGS: Normal lumbar lordosis. There is no substantial scoliosis. There is a grade 1 anterolisthesis of L4 relative to L5. There is no evidence of associated spondylolysis. There is severe narrowing of the T12-L1 disc space with sclerosis of the adjacent endplates and vacuum disc phenomenon. There is mild narrowing of the L2-3 disc space. There is no demonstrated fracture. There are calcified plaques of the abdominal aorta and common iliac arteries. RAD/Lumbar Spine 2 or 3 Views IMPRESSION: 1. Grade 1 L4-5 anterolisthesis of L4 relative to L5. 2. Severe disc space narrowing at the T12-L1 level with vacuum disc phenomenon and sclerosis of the adjacent vertebral body endplates. 3. Mild narrowing of the L2-3 disc space. 4. Allowing for differences in radiographic technique findings are similar to the previous study. Electronically Signed: Lester Maurer MD at 19:52 EDT , Service support , CC: Octaviano Franco MD Induction Machine Setter: Signed HIPS B/L MIN 2 Observed: 08/24/2017 Status: F Source: [place] VIEWS W/ PELVIS 9:52 AM [facility] Imaging Services [address] [place] [id number] Hips B/L min 2 views w/ Pelvis MR#: [id number] Acct: [id number] Name: NIKKI VIZCARRA Rep #: [id number] : 1945 F 72 From: Lester Maurer MD PCP: Octaviano Franco MD, Chi Status: REG CLI Study: Hips B/L min 2 views w/ Pelvis Date of Exam: 08/24/17 Exam# [id number] Ordering Dr: Octaviano Franco MD STUDY: X-RAY - PELVIS AND BILATERAL HIPS REASON FOR EXAM: Female, 72 years old. Pain upon walking and standing, no injury TECHNIQUE: Radiological exam, hip, bilateral, with pelvis when performed; 2 views COMPARISON: Prior right hip study of 11/16/2016 and left hip study of 01/05/2010 FINDINGS: There is a non-specific bowel gas pattern. Normal visualized soft tissue structures. There is a mild dysraphism of the posterior elements of S1. Normal bilateral superior and inferior pubic rami. Normal pubic symphysis. Normal bilateral ischial tuberosities. Normal visualized right femoral head. Normal right acetabulum. Normal right hip joint. There are mild osteoarthritic changes of the left hip joint. There is no evidence of left hip fracture, dislocation, or lytic or blastic osseous process. There are numerous vascular clips overlying the left hip area and proximal medial thigh. RAD/Hips B/L min 2 views w/ Pelvis IMPRESSION: Mild osteoarthritic changes of the left hip joint. Mild dysraphism of the posterior elements of S1. Electronically Signed: Lester Maurer MD at 20:12 EDT , Service support , CC: Octaviano Franco MD Induction Machine Setter: Signed CARDIOLOGY VISIT Observed: 08/23/2017 Status: F Source: [place] REPORT 1:47 PM [facility] [address] [place] [address] OFFICE VISIT Date of Service: 08/22/17 MR#: [id number] Acct: [id number] Name: NIKKI VIZCARRA Rep #: [id number] : 1945 Provider: JIMY Boston Age/Sex: 72/F Location: [facility] Status: Signed HPI HPI Details: NIKKI VIZCARRA, is a 72 F who presents to the office today for a cardiovascular outpatient follow-up. She has a history of coronary artery disease status post bypass surgery with a ARREGUIN to the LAD and SVG to the obtuse marginal branch in December 2010, drug-eluting stenting to RCA in August 2012, paroxysmal atrial fibrillation, hypertension, hyperlipidemia, and diabetes. Pt denies chest, arm, jaw, or neck discomfort. Her exercise tolerance is stable. Pt denies symptoms of palpitations, lightheadedness, near syncopal or syncopal episodes. Pt denies claudication issues. Pt. denies orthopnea, PND, fever, chills, blood in urine, blood in stool, myalgia, or unexplainable fatigue. She states SOB with extreme exertion. She states dizziness with quick position changes. She states hip pain. She states improved lower extremity edema, though still present. 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 Accompanied by: none Is patient in pain?: No Allergies ciprofloxacin [From Cipro] Allergy (Verified 08/22/17 14:18) Hives ciprofloxacin HCl [From Cipro] Allergy (Verified 08/22/17 14:18) Hives Latex, Natural Rubber Allergy (Verified 08/22/17 14:18) Rash Penicillins [PCN] Allergy (Verified 08/22/17 14:18) Hives codeine Adverse Reaction (Unknown, Verified 08/22/17 14:18) Unknown adhesive tape Adverse Reaction (Verified 08/22/17 14:18) Rash Medications Amiodarone HCl [Cordarone] 200 mg PO DAILY 05/10/17 [History Confirmed 08/22/17] Docusate Sodium [Colace] 50 mg PO DAILY 05/10/17 [History Confirmed 08/22/17] Ergocalciferol [Vitamin D] 50,000 unit PO Q7D 05/10/17 [History Confirmed 08/22/17] Gabapentin [Neurontin] 800 mg PO TIDCM 05/10/17 [History Confirmed 08/22/17] Magnesium Oxide 400 mg PO BID 05/10/17 [History Confirmed 08/22/17] Metformin HCl [Glucophage] 500 mg PO BIDCM 05/10/17 [History Confirmed 08/22/17] Metoprolol Tartrate [Lopressor (beta man)] 50 mg PO BID 05/10/17 [History Confirmed 08/22/17] Pantoprazole Sodium [Protonix] 40 mg PO DAILY 05/10/17 [History Confirmed 08/22/17] Rivaroxaban [Xarelto] 15 mg PO DAILY 05/10/17 [History Confirmed 08/22/17] baclofen 10 mg tablet 10 mg PO Q8H PRN 05/23/17 [History Confirmed 08/22/17] losartan 100 mg tablet 50 mg PO DAILY tab 05/23/17 [History Confirmed 08/22/17] potassium chloride ER 20 mEq tablet,extended release 20 meq PO BID 06/13/17 [History Confirmed 08/22/17] furosemide 40 mg tablet 40 mg PO .QODAY tab 08/22/17 [History Confirmed 08/22/17] Ejection fraction %: 65 to 70 PFSH Medical History PVD (peripheral vascular disease) (Chronic) Ulcer of left lower extremity with fat layer exposed (Acute) Controlled diabetes mellitus (Chronic) Edema, lower extremity (Chronic) Presence of stent in coronary artery (Chronic) Atherosclerotic heart disease of [place] coronary artery without angina pectoris (Chronic) Paroxysmal atrial fibrillation (Chronic) Hyperlipidemia (Chronic) Hypertension (Chronic) Carcinoma of lip (Acute) Diabetic ulcer of both lower extremities (Acute) History of DVT (deep vein thrombosis) (Acute) Multiple sclerosis (Acute) Trigeminal neuralgia (Acute) Type 2 diabetes mellitus (Acute) LAURITA (obstructive sleep apnea) (Chronic) Peripheral vascular disease (Chronic) Venous insufficiency of both lower extremities (Chronic) Surgical History S/P CABG (coronary artery bypass graft) (Chronic 01/02/11) History of cataract surgery (Chronic) History of cholecystectomy (Chronic) History of hernia repair (Chronic) History of tonsillectomy and adenoidectomy (Chronic) History of total hysterectomy (Chronic) Postsurgical percutaneous transluminal coronary angioplasty (PTCA) status (Chronic) Family History Father Heart disease Mother Hypertension Cancer Brother Diabetes Hypertension Social History Smoking Status: Former smoker alcohol intake: never substance use type: does not use ROS Const Const: Positive for fatigue (wax and wanes); negative for weakness, weight gain, weight loss, frequent falls or excessive sweating Eyes Eyes: Negative for change in vision, blurry vision or transient loss of vision ENT ENT: Positive for dizziness and balance problems Cardio Chest Pain: No Edema: Bilateral Muscle aches with walking: None Resp Respiratory: Negative for SOB with activity, SOB at rest, SOB orthopnea\SOB lying down or paroxysmal nocturnal dyspnea GI GI: Negative vomiting or vomiting blood/hematemesis : Negative for hematuria Musc Musc: Positive for balance problems Skin Skin: Positive for wounds (x2 Lt LE, follow up with Wound Center); negative non-healing lesions or rash Neuro Neuro: Positive for dizziness; negative for weakness, frequent falls, blurry vision, lightheadedness, near syncope or syncope [place] Hematologic/Lymphatic: Negative for easy bleeding Endo Endo: Positive for fatigue (wax and wanes); negative for excessive sweating Psych Psych: Negative for anxiety or depression Allergy Allergy/Immunology: Negative for rash Cardiology Exam Const Appearance: cooperative, comfortable, no acute distress, well developed and well groomed Nutritional Appearance: overweight Orientation: alert, awake and oriented x3 Head Head: normal to inspection, normocephalic and atraumatic Ears: hearing grossly normal bilaterally Nose: external nose normal Face and Sinus: face symmetric Mouth: oral mucosae normal Teeth and gingiva: fair dentition Eyes General: appearance normal, both eyes and all related structures Eyelids: eyelids normal Conjunctivae: conjunctivae normal Pupils: PERRL EOM: EOM intact bilaterally Neck Neck: normal visual inspection and full ROM Carotids: normal carotid upstroke Chest Chest inspection: normal inspection of the chest and symmetric chest movement Auscultation: Bilateral: Clear to Auscultation Cardio Palpation: normal PMI Rate: regular rate Rhythm: regular rhythm Heart sounds: S1 normal and S2 normal GI GI: normal to inspection, soft, no hepatosplenomegaly and bowel sounds present Neuro General: alert, awake and oriented x3 Extremities Pulses: Normal: Right Radial Pulse, Left Radial Pulse Lower Extremity Edema: +3: Bilateral Psych Psychological: normal affect Supplemental Info Echo from August 2016 showed an estimated ejection fraction of 65%, mildly dilated right ventricle, mildly enlarged left atrium, mild mitral annular calcification, mild mitral valve insufficiency, mild tricuspid valve insufficiency, mild focal aortic valve thickening, trivial aortic valve insufficiency, trivial pulmonic valve insufficiency, calcified aortic root, and an RVSP of 28 mmHg. Stress test from September 2015 was negative for myocardial induced ischemia and showed preserved ejection fraction. Heart cath from August 2012 showed a left main coronary artery there is angiographically normal, LAD with 80% proximal stenosis, left circumflex artery with mid segment 70-80% stenosis, RCA with severe disease noted in the mid segment with 80-90% segment stenosis and a long area, ARREGUIN to LAD which is patent, and SVG to second obtuse marginal branch that was patent. Based on this result patient subsequently underwent PCI to her RCA. Assessment AND Plan 1. Atherosclerosis of [place] coronary artery of [place] heart without angina pectoris I25.10 PTCA/stent to CX; PTCA/Stent PTCA/stent to prox RCA 05/06; PTCA/LILY in mid to distal RCA 08/29/12; CABG x2 ARREGUIN tp LAD and SVG to OM2 01/02/11 Plan Patient's heart catheterization from August 2012 showed ARREGUIN to LAD to be patent and SVG to second obtuse marginal to be patent. At that time she underwent stenting to her RCA. Her echocardiogram in August 2016 showed estimated ejection fraction of 65%. Her stress test in September 2015 was negative for stress-induced myocardial ischemia. Patient denies any chest pain, arm pain, jaw pain, neck pain, shortness of breath, or fatigue suggestive of angina at this time. We will continue to monitor this. We will not make any medication regimen changes and will continue risk factor modification. 2. S/P CABG (coronary artery bypass graft) Z95.1 CABG x2 ARREGUIN tp LAD and SVG to OM2 01/02/11 Plan She will continue current treatment plan as outlined above. 3. Presence of stent in coronary artery Z95.5 PTCA/stent to CX; PTCA/Stent PTCA/stent to prox RCA 05/06; PTCA/LILY in mid to distal RCA 08/29/12 Plan She will continue current treatment plan as outlined above. 4. Paroxysmal atrial fibrillation I48.0 Plan Her heart rate is well-controlled today in office. She will continue with antiarrhythmic and beta-man medication. She will also continue with factor Xa inhibitor. We will continue to monitor this. 5. Essential hypertension I10 Plan Patient's blood pressure is well-controlled today in the office. We will continue to monitor this. We will not make any medication regimen changes. 6. Edema, lower extremity R60.0 Plan This is improved since last office visit. She currently has her bilateral lower extremities wrapped. She will continue with current medications. Since her lower extremity swelling has greatly improved she asked if she could decrease her Lasix to 40 mg every other day. She was reminded of symptoms to monitor regarding fluid volume overload. She will make this change and we will continue to monitor. Plan Detail Additional Comments Thank you for allowing us to participate in the patients plan of care, if you have any questions please do not hesitate to call. This note was generated using a voice recognition system and there may be incorrect words, spelling or punctuation that were not noted when reviewing the office note prior to saving. Follow Up 12 Months (PFM) 6 Months Coding Level of Care Code Off vis,est,level 3 Diagnoses Atherosclerosis of [place] coronary artery of [place] heart without angina pectoris I25.10 [place] vs. transplanted heart: [place] heart S/P CABG (coronary artery bypass graft) Z95.1 Presence of stent in coronary artery Z95.5 Paroxysmal atrial fibrillation I48.0 Essential hypertension I10 Hypertension type: essential hypertension Edema, lower extremity R60.0 Coding Level of Care Code Off vis,est,level 3 Diagnoses Atherosclerosis of [place] coronary artery of [place] heart without angina pectoris I25.10 [place] vs. transplanted heart: [place] heart S/P CABG (coronary artery bypass graft) Z95.1 Presence of stent in coronary artery Z95.5 Paroxysmal atrial fibrillation I48.0 Essential hypertension I10 Hypertension type: essential hypertension Edema, lower extremity R60.0 08/23/17 1347 <Electronically signed by Onofre MURPHY> Date Onofre MURPHY Cosigner Signature: Date (if applicable) CC: Octaviano Franco MD ECHO, COMPLETE W/ Observed: 06/18/2017 Status: F Source: [place] CONTRAST 5:10 PM [facility] Cardiovascular Services [address] [place] [address] Echo Complete W/ Contrast 06/18/17 1317 MR#: [id number] Acct: [id number] Name: NIKKI VIZCARRA Rep #: [id number] : 1945 72 From: Uriel Luna MD Attending Dr: Uriel Luna MD Status: REG CLI Ordering Dr: Uriel Luna MD Date: 06/18/17 Location: [facility] Sex: F C Admitted: Reason For Study: CAD/ASHD Procedure This was a 2D Doppler, Color Flow transthoracic echocardiogram. Patient unable to lay on side. Exam performed with patient flat on her back. The study was technically difficult. Contrast injection was performed. Exam performed in department. Left Ventricle Normal LV size. Left ventricular systolic function is normal. The estimated ejection fraction is 65 %. Unable to assess diastolic dysfunction due to arrhythmia. No regional wall motion abnormalities noted. Right Ventricle Borderline enlarged right ventricle. Normal systolic function. Atria The left atrium is mildly enlarged. Normal right atrium. No doppler evidence for ASD. Mitral Valve There is moderate mitral annular calcification. Extension of the mitral annular calcification onto the posterior mitral valve leaflet. Mild (1+) mitral valve insufficiency. Tricuspid Valve Normal tricuspid valve. Trivial tricuspid valve insufficiency. Right ventricular systolic pressure estimated to be 39 mmHg. Aortic Valve Trisinus/trileaflet aortic valve. Mild focal aortic valve calcification. Trivial aortic valve insufficiency. Pulmonic Valve The pulmonic valve is not well visualized. Trivial pulmonic valve insufficiency. Great Vessels Normal sized aortic root. Pericardium/Pleural No pericardial effusion. Medication 22 gauge I.V. with prn adaptor inserted into left arm. Diluted definity 5ml given slow IV push to enhance endocardial definition. MMode/2D Measurements AND Calculations LVIDd: 4.4 cm IVSd: 1.1 cm Ao root diam: 3.3 cm LVIDs: 2.9 cm LVPWd: 1.2 cm FS: 33.6 % LAV(MOD-bp): 62.5 ml LA A4 area: 21.5 cm2 LAV(MOD-bp) Indexed: 32.2 ml/m2 LAV(MOD-sp2): 64.8 ml LAV(MOD-sp4): 59.0 ml Time Measurements MV dec time: 0.21 sec Doppler Measurements AND Calculations MV E max vickie: 101.5 cm/sec Lat Peak E' Vickie: 7.9 cm/sec Med Peak E' Vickie: 7.3 cm/sec E/E' lat: 12.9 E/E' med: 13.9 Ao V2 max: 174.2 cm/sec LV V1 max: 130.9 cm/sec PA V2 max: 108.3 cm/sec Ao max P.2 mmHg LV V1 max P.9 mmHg TR max vickie: 300.7 cm/sec TR max P.2 mmHg Interpretation Summary The study was technically difficult. Contrast injection was performed. Left ventricular systolic function is normal. The estimated ejection fraction is 65 %. Borderline enlarged right ventricle. The left atrium is mildly enlarged. There is moderate mitral annular calcification. Extension of the mitral annular calcification onto the posterior mitral valve leaflet. Mild (1+) mitral valve insufficiency. Trivial tricuspid valve insufficiency. Mild focal aortic valve calcification. Trivial aortic valve insufficiency. Trivial pulmonic valve insufficiency. Right ventricular systolic pressure estimated to be 39 mmHg. Unable to assess diastolic dysfunction due to arrhythmia. Ordering Physician: Uriel Luna Referring Physician: OCTAVIANO FRANCO CHI Performed By: Keshia Forrest RDCS 06/18/17 1709 Date Uriel Luna MD CC: Uriel Luna MD; Octaviano Franco MD Date Dictated: 06/18/17 1317 Date Transcribed: 06/18/171708 Induction Machine Setter: Signed ABD INC DECUB Observed: 06/15/2017 Status: F Source: [place] AND/OR ERECT 1:11 PM [facility] Imaging Services [address] [place] [address] [place] [address] Abd Inc Decub and/or Erect MR#: [id number] Acct: [id number] Name: NIKKI VIZCARRA Rep #: [id number] : 1945 F 72 From: Nikolas Savage MD PCP: Octaviano Franco MD, Chi Status: REG CLI Study: Abd Inc Decub and/or Erect Date of Exam: 06/15/17 Exam# [id number] Ordering Dr: Octaviano Franco MD STUDY: X-RAY - ABDOMEN/PELVIS REASON FOR EXAM: Female, 72 years old. Constipation TECHNIQUE: AP supine and upright views of the abdomen and pelvis. COMPARISON: None. FINDINGS: Normal visualized lung bases. There is an unremarkable bowel gas pattern. There is no demonstrated free abdominal air. The visualized liver, spleen and kidneys are grossly normal in size and morphology. Normal soft tissue structures. There are diffuse degenerative changes of the visualized lumbar spine. RAD/Abd Inc Decub and/or Erect IMPRESSION: No evidence for obstruction. Electronically Signed: Nikolas Savage MD at 23:58 EDT , Service support , CC: Octaviano Franco MD Induction Machine Setter: Signed RENAL PROFILE Collected: 06/07/2017 Status: F Source: [place] 1:45 PM [facility] TYPE CODE TESTS RESULT OUT OF RANGE REFERENCE UNITS LAB L501.0100 74-106 mg/dL Normal GLU 93 Result Comment: Please note revised GLUCOSE reference range effective 2017. LAB L501.1000 7-18 mg/dL High BUN 28 LAB L501.1100 0.55-1.02 mg/dL High CREAT,SERUM 1.29 Result Comment: The validity of the calculated GFR AND GFRAA in patients over 70 years has not been determined. Clinical correlation is essential. LAB L501.1110 >60 mL/min Low EST GFR 43 Result Comment: Non- GFR Calc LAB L501.1115 >60 mL/min Low EST GFR - AA 52 Result Comment: GFR Calc LAB L501.1300 10-20 RATIO High BUN/CRE 21.7 LAB L501.1800 3.2-5.0 g/dL Normal ALB 3.2 LAB L501.2200 8.5-10.1 mg/dL CA Normal 9.3 LAB L501.2300 2.5-4.9 mg/dL Normal PHOS 3.0 LAB L501.5300 136-145 mmol/L NA Normal 145 LAB L501.5600 3.5-5.1 mmol/L K Normal 4.2 LAB L501.5900 98-107 mmol/L CL Normal 107 LAB L501.6100 21.0-32.0 mmol/L Normal CO2 30.0 Performed By: #### L500.3600 #### [facility] [address] [place], [address] CARDIOLOGY VISIT Observed: 05/23/2017 Status: F Source: [place] REPORT 5:15 PM [facility] [address] [place] [address] OFFICE VISIT Date of Service: 05/23/17 MR#: [id number] Acct: [id number] Name: NIKKI VIZCARRA Rep #: [id number] : 1945 Provider: Uriel Luna MD Age/Sex: 72/F Location: [facility] Status: Signed HPI HPI Details: NIKKI VIZCARRA, is a 72 F who presents to the office today for for outpatient cardiovascular follow-up. Since her last visit she states overall she had been doing well until she had an accidental fall from her elevated commode. She injured her left lower extremity. This resulted in laceration requiring sutures. It also resulted in a long-term wound care issue. She continues to follow at the [facility] wound care center for this. During this time she has noted progressive lower extremity edema of both lower extremities. She has had her medications adjusted and her diuretic dose was decreased at some point in time. She has been wearing compression stockings and/or Pino wraps to her lower extremities. She denies any ongoing chest discomfort. She has had no issues with worsening orthopnea or PND. There is been no near syncope or syncope. She states the wound care center has adjusted her medications as noted above. She also notes that her losartan dose was decreased. She notes that her renal function is abnormal. She is due to see Dr. Cortes of nephrology in the near future. She states she will be having laboratory work performed prior to that visit. She also notes that at the beginning of this month she was hospitalized. She had chest discomfort. She had a pharmacologic stress nuclear imaging study performed which was negative. Apparently was felt her chest discomfort was related to esophageal candidiasis secondary to her antibiotic use. Intake Vital Signs05/23/17 Height 4 ft 11 in 05/23/17 Weight: 219 lb 05/23/17 Body Mass Index (BMI) 44.2 05/23/17 Blood Pressure 120/56 Intake Visit Reasons: 6 M FU Allergies ciprofloxacin [From Cipro] Allergy (Verified 05/23/17 15:33) Hives ciprofloxacin HCl [From Cipro] Allergy (Verified 05/23/17 15:33) Hives Latex, Natural Rubber Allergy (Verified 05/23/17 15:33) Rash Penicillins [PCN] Allergy (Verified 05/23/17 15:33) Hives codeine Adverse Reaction (Unknown, Verified 05/23/17 15:33) Unknown adhesive tape Adverse Reaction (Verified 05/23/17 15:33) Rash Medications Amiodarone HCl [Cordarone] 200 mg PO DAILY 05/10/17 [History Confirmed 05/23/17] Docusate Sodium [Colace] 50 mg PO DAILY 05/10/17 [History Confirmed 05/23/17] Ergocalciferol [Vitamin D] 50,000 unit PO Q7D 05/10/17 [History Confirmed 05/23/17] Gabapentin [Neurontin] 800 mg PO TIDCM 05/10/17 [History Confirmed 05/23/17] Magnesium Oxide 400 mg PO BID 05/10/17 [History Confirmed 05/23/17] Metformin HCl [Glucophage] 500 mg PO BIDCM 05/10/17 [History Confirmed 05/23/17] Metoprolol Tartrate [Lopressor (beta man)] 50 mg PO BID 05/10/17 [History Confirmed 05/23/17] Pantoprazole Sodium [Protonix] 40 mg PO DAILY 05/10/17 [History Confirmed 05/23/17] Rivaroxaban [Xarelto] 15 mg PO DAILY 05/10/17 [History Confirmed 05/23/17] Nystatin 500,000 unit PO 4X/DAY #1 bottle 05/11/17 [Rx Confirmed 05/23/17] baclofen 10 mg tablet 10 mg PO Q8H PRN 05/23/17 [History Confirmed 05/23/17] furosemide 40 mg tablet 40 mg PO QDAY tab 05/23/17 [History Confirmed 05/23/17] linezolid 600 mg tablet 600 mg PO BID 05/23/17 [History Confirmed 05/23/17] losartan 100 mg tablet 50 mg PO DAILY tab 05/23/17 [History Confirmed 05/23/17] metolazone 2.5 mg tablet 2.5 mg PO .twice a week #30 tab 05/23/17 [Rx Confirmed 05/23/17] PFSH Medical History PVD (peripheral vascular disease) (Chronic) Ulcer of left lower extremity with fat layer exposed (Acute) Controlled diabetes mellitus (Chronic) Edema, lower extremity (Chronic) Presence of stent in coronary artery (Chronic) Atherosclerotic heart disease of [place] coronary artery without angina pectoris (Chronic) Paroxysmal atrial fibrillation (Chronic) Hyperlipidemia (Chronic) Hypertension (Chronic) Carcinoma of lip (Acute) Diabetic ulcer of both lower extremities (Acute) History of DVT (deep vein thrombosis) (Acute) Multiple sclerosis (Acute) Trigeminal neuralgia (Acute) Type 2 diabetes mellitus (Acute) LAURITA (obstructive sleep apnea) (Chronic) Peripheral vascular disease (Chronic) Venous insufficiency of both lower extremities (Chronic) Surgical History S/P CABG (coronary artery bypass graft) (Chronic 01/02/11) History of cataract surgery (Chronic) History of cholecystectomy (Chronic) History of hernia repair (Chronic) History of tonsillectomy and adenoidectomy (Chronic) History of total hysterectomy (Chronic) Postsurgical percutaneous transluminal coronary angioplasty (PTCA) status (Chronic) Family History Father Heart disease Mother Hypertension Cancer Brother Diabetes Hypertension Social History Smoking Status: Former smoker alcohol intake: never substance use type: does not use ROS Const Const: Positive for fatigue (increased); negative for weakness, weight gain, weight loss, frequent falls or excessive sweating Eyes Eyes: Negative for change in vision, blurry vision or transient loss of vision ENT ENT: Positive for balance problems; negative for dizziness Cardio Chest Pain: No Edema: Bilateral (+2-3 bilat LE, pedals) Muscle aches with walking: None Resp Respiratory: Negative for SOB with activity or SOB at rest GI GI: Negative vomiting or vomiting blood/hematemesis : Negative for hematuria Musc Musc: Positive for balance problems; negative for muscle aches/ myalgia, muscle weakness or joint pain Skin Skin: Positive for wounds (x2 Lt LE, follow up with Wound Center); negative non-healing lesions or rash Neuro Neuro: Negative for weakness, blurry vision, dizziness, lightheadedness, frequent falls or orthostatic symptoms [place] Hematologic/Lymphatic: Negative for easy bleeding Endo Endo: Positive for fatigue (increased); negative for excessive sweating Psych Psych: Negative for anxiety or depression Allergy Allergy/Immunology: Negative for hives, Negative for rash Cardiology Exam Const Appearance: cooperative, comfortable, no acute distress, well developed and well groomed Nutritional Appearance: overweight Orientation: alert, awake and oriented x3 Head Head: normal to inspection, normocephalic and atraumatic Ears: hearing grossly normal bilaterally Nose: external nose normal Face and Sinus: face symmetric Mouth: oral mucosae normal Teeth and gingiva: fair dentition Eyes General: appearance normal, both eyes and all related structures Eyelids: eyelids normal Conjunctivae: conjunctivae normal Pupils: PERRL EOM: EOM intact bilaterally Neck Neck: normal visual inspection and full ROM Carotids: normal carotid upstroke Chest Chest inspection: normal inspection of the chest and symmetric chest movement Auscultation: Bilateral: Clear to Auscultation Cardio Palpation: normal PMI Rate: regular rate Rhythm: regular rhythm Heart sounds: S1 normal and S2 normal GI GI: normal to inspection, soft, no hepatosplenomegaly and bowel sounds present Neuro General: alert, awake and oriented x3 Extremities Pulses: Normal: Right Radial Pulse, Left Radial Pulse Lower Extremity Edema: +3: Bilateral Psych Psychological: normal affect Supplemental Info She did have a transthoracic echocardiogram performed at [facility] on 09/01/2016. The results are as noted below. Interpretation Summary The study was technically difficult Contrast injection was performed. Left ventricular systolic function is normal. The estimated ejection fraction is 65 %. Mildly dilated right ventricle The left atrium is moderately enlarged There is mild mitral annular calcification Mild (1+) mitral valve insufficiency. Mild tricuspid valve insufficiency. Mild focal aortic valve thickening. Trivial aortic valve insufficiency. Trivial pulmonic valve insufficiency Calcified aortic root. Right ventricular systolic pressure estimated to be 28 mmHg. Her previous cardiac catheterization was performed at [facility] on 08/29/[address] Barajas. The results are as noted below. CONCLUSION: 1. Angiographically normal left main coronary artery. 2. Left anterior descending artery with 80% proximal stenosis. 3. Left circumflex artery with midsegment 70-80% stenosis. 4. Right coronary artery with severe disease noted in the midsegment with 80-90% segment stenosis and a long area. 5. Left internal mammary artery to left anterior descending artery, which is patent with competitive flow. 6. Saphenous vein graft to second obtuse marginal branch, which is patent. Her previous PCI procedure was performed at [facility] on 08/29/2012. The results are as noted below. Impression: 10 to 20% in-stent restenosis of the pre-existing stent in the proximal right coronary artery. Successful angioplasty and successful stenting of the 80 to 90% stenosis in the mid to distal right coronary artery. (Drug Eluting) She did have previous CABG performed at [facility] in [place], [place] on 01/03/2011. At that time she received a ARREGUIN to the LAD and an SVG to the second OM. Assessment AND Plan 1. Atherosclerosis of [place] coronary artery of [place] heart without angina pectoris I25.10 PTCA/stent to CX; PTCA/Stent PTCA/stent to prox RCA 05/06; PTCA/LILY in mid to distal RCA 08/29/12; CABG x2 ARREGUIN tp LAD and SVG to OM2 01/02/11 Plan At the present time she appears to be without symptoms of acute coronary syndrome. Her recent pharmacologic stress test was reviewed and demonstrated no obvious ongoing evidence of stress-induced myocardial ischemia. She did not require repeat invasive evaluation or care. She will need to continue medical management as deemed appropriate. 2. S/P CABG (coronary artery bypass graft) Z95.1 CABG x2 ARREGUIN tp LAD and SVG to OM2 01/02/11 Plan Her previous CABG is as noted above. Again she will need to continue medical therapy and follow-up as deemed appropriate. 3. Presence of stent in coronary artery Z95.5 PTCA/stent to CX; PTCA/Stent PTCA/stent to prox RCA 05/06; PTCA/LILY in mid to distal RCA 08/29/12 Plan Her previous PCI procedure is as noted above. Again based upon her recent evaluation it does not appear she requires further invasive evaluation or care at this time. 4. Paroxysmal atrial fibrillation I48.0 Plan She does have a history of underlying atrial dysrhythmias with atrial fibrillation. She has continued medical management for such. This has included rate control therapy as well as anticoagulant therapy. This will be continued at this time. 5. Hyperlipidemia, unspecified hyperlipidemia type E78.5 Plan She does have a history of hyperlipidemia. Her lipids were checked in April of this year. Her total cholesterol was 189 with an LDL of 93 and HDL 55 and a triglyceride level of 207. She will continue medical management and follow-up as deemed appropriate and tolerated. 6. Essential hypertension I10 Plan Her blood pressures are being followed. Her medications have been adjusted. Depending upon her future blood pressure recordings her medications may need to be further adjusted. 7. Leg edema R60.0 Plan She does have a long-standing history of lower extremity discomfort. It is unclear whether this is all cardiovascular related versus potentially non- cardiovascular related being related to unfortunately her obesity, possible venous insufficiency and/or lymphedema, as well as adjustments of her medications, etc. At the present time she will continue medical therapy. An attempt will be made to alter her diuretic therapy to include metolazone 2.5 mg on Sunday and to see if this will boost her furosemide dosage and increase her urinary output and help with her lower extremity edema. She is scheduled to have follow-up labs for Dr. Pabon from nephrology in the near future which will help monitor her BMP. She will continue her support stockings or Pino wraps. However she will undergo additional evaluation. This will include a follow-up transthoracic echocardiogram to reassess her ventricular function, including her right ventricular size and function, for any contributing factors to her edema. If there are no significant changes than perhaps this may indicate that her lower extremity edema is not related to her underlying cardiovascular condition. In the meantime she continues to follow with the wound care center for local evaluation care of her lower extremity issues and findings. Orders Orders: Plan Detail Other Medications New: metolazone Take one tablet (2.5 mg) by mouth approximately 30 2.5 mg PO .twice a week minutes prior to furosemide / lasix dose on Sunday and Changed: Additional Comments The above was discussed with her. She was agreeable to this approach. Thank you for allowing me to participate in the care of your patient. Please don't hesitate to call if any issues arise. This note was generated using a voice recognition system and there may be incorrect words, spelling or punctuation that were not noted when reviewing the office note prior to saving. Follow Up 3 Months (PFM/MMM/JR) Coding Level of Care Code Off vis,est,level 4 Diagnoses Atherosclerosis of [place] coronary artery of [place] heart without angina pectoris I25.10 [place] vs. transplanted heart: [place] heart S/P CABG (coronary artery bypass graft) Z95.1 Presence of stent in coronary artery Z95.5 Paroxysmal atrial fibrillation I48.0 Hyperlipidemia, unspecified hyperlipidemia type E78.5 Hyperlipidemia type: unspecified Essential hypertension I10 Hypertension type: essential hypertension Leg edema R60.0 Time Spent (min) 30 Coding Level of Care Code Off vis,est,level 4 Diagnoses Atherosclerosis of [place] coronary artery of [place] heart without angina pectoris I25.10 [place] vs. transplanted heart: [place] heart S/P CABG (coronary artery bypass graft) Z95.1 Presence of stent in coronary artery Z95.5 Paroxysmal atrial fibrillation I48.0 Hyperlipidemia, unspecified hyperlipidemia type E78.5 Hyperlipidemia type: unspecified Essential hypertension I10 Hypertension type: essential hypertension Leg edema R60.0 Time Spent (min) 30 05/23/17 1715 <Electronically signed by Uriel Luna MD> Date Uriel Luna MD Cosigner Signature: Date (if applicable) CC: Hodan Cortes DO; Octaviano Franco MD DISCHARGE SUMMARY Observed: 05/22/2017 Status: F Source: [place] 5:49 PM [facility] Medical Records Department [address] [place] [address] Discharge Summary 05/11/17 1616 MR#: [id number] Acct: [id number] Name: NIKKI VIZCARRA Rep #: [id number] : 1945 72 From: Donn RUIZ PCP: Octaviano Franco MD, Chi Status: DIS FABRICIO Y Location: [place] [address] ADDENDUM by Leigh Ann Ramirez on 05/22/17 at 1749 Code Visit This patient was seen in conjunction with Donn RUIZ. I have independently interviewed and examined the patient and reviewed pertinent historical, laboratory and other data. Please refer to discharge summary note for details of this patient's presentation, findings and recommendations. I have reviewed Donn's note and concur fully with documented findings. In brief, patient is a 72YO male admitted with chest pain she was admitted to a monitored bed on U and serial cardiac enzymes were negative. A nuclear stress test was done on the date of discharge and was negative for ischemia and showed a gated nuclear ejection fraction of 89%. She continued to complain of substernal chest discomfort. She was given a GI cocktail with good relief. Physical examination: On physical examination she had evidence of thrush in her mouth and it is thought that she likely has esophagitis secondary to fungus. She had recently been on antibiotics and she is also diabetic. Her lungs are clear to auscultation and the heart had a regular rate and rhythm without gallop. She had no significant peripheral edema. Assessment: 1. Noncardiac chest pain 2. Suspected esophagitis- possibly secondary to Sada. She was given a prescription for nystatin swish and swallow at discharge. She will follow-up with Dr. Franco in 1-2 weeks. I have discussed my assessment with Donn Reinoso and orders have been written. OBSV E AND M: [id number] Observation care discharge 05/22/17 1749 <Electronically signed by Armando Ramirez DO> Date Armando Ramirez DO cc: SARA Reinoso; Leigh Ann Ramirez; Octaviano Franco MD * Signed Discharge Date and Diagnosis Date of Admission: 05/10/17 Date of Discharge: 05/11/17 - Primary Discharge Diagnosis Chest pain - esophagitis CAD PAF HLD HTN CKDIII - Secondary Discharge Diagnosis Chronic Problems (Last Updated 05/10/17 @ 23:30 by Kary Monk MD) PVD (peripheral vascular disease) (Chronic) Controlled diabetes mellitus (Chronic) Edema, lower extremity (Chronic) Presence of stent in coronary artery (Chronic) PTCA/stent to CX; PTCA/Stent PTCA/stent to prox RCA 05/06; PTCA/LILY in mid to distal RCA 08/29/12 Atherosclerotic heart disease of [place] coronary artery without angina pectoris (Chronic) PTCA/stent to CX; PTCA/Stent PTCA/stent to prox RCA 05/06; PTCA/LILY in mid to distal RCA 08/29/12; CABG x2 ARREGUIN tp LAD and SVG to OM2 01/02/11 S/P CABG (coronary artery bypass graft) (Chronic 01/02/11) CABG x2 ARREGUIN tp LAD and SVG to OM2 01/02/11 Paroxysmal atrial fibrillation (Chronic) Hyperlipidemia (Chronic) Hypertension (Chronic) Hospital Course and Treatment Imaging Results: Stress test: Conclusion: Normal pharmacologic myocardial perfusion stress test. Preserved ejection fraction. RAD/Chest 1 View (Portable) IMPRESSION: No acute thoracic pathology. Consultations 05/11/17 00:04 Consult: Onc/Wound/rouge miller Routine Comment: Reason for Consult:: Left lower extremity wound/laceration. Operations: None Procedures: Stress test Summary of Care Provided: Physical exam on day of discharge: General: Resting comfortably NAD Psych: A/Ox3 normal affect HEENT: PEARRLA AT NC Neck: Supple NT CV: RRR no m/t/r/g/h Resp: CTA Abd: NABSX4 Soft NT no guarding or rigidity Ext: DP2+= no edema Skin: W/D normal turgor Lymph/Heme: No active bleeding or adenopathy Neuro: CN2-12 intact Hospital Course: The patient is a 72 year old F with a history of CAD with prior CABG, type 2 diabetes, paroxysmal atrial fibrillation, PVD, hyperlipidemia, hypertension who presents to the emergency room with chief complaint of chest pain which began the evening of presentation about 8:00. Was described as a centralized chest pain in the retrosternal area that began while she was folding her laundry. She described it as an 8 out of 10 pressure radiating to the right side of her neck with mild shortness of breath and dizziness. Lasted for about 2 minutes then spontaneously resolved. She had a second episode later on. She came to the emergency room had a negative EKG, negative troponin, negative chest x-ray. She had a history of CAD with prior CABG procedure very concerned for a cardiac etiology. She is admitted for chest pain rule out. She was kept in the PCU on telemetry, had troponin cycled, repeat EKG, stress test in the following morning. Her cardiac workup was negative. She had recently been placed on Levaquin and clindamycin for cellulitis that developed around lower extremity laceration that was repaired with 12 stitches. Is felt that her retrosternal chest pain may be a result of esophagitis from being on the antibiotics. She is given a GI cocktail and started on nystatin swish and swallow. Is also noticed that she has started to develop a decubitus ulcer in the sacral region and she was given a DuoDERM for this. She will need this reevaluated by her PCP at follow-up. Her other medications remain unchanged deficits unchanged at this time. She is discharged home in stable condition. Please follow-up with your primary care provider in 1-2 weeks. She should also complete her antibiotics as prescribed by her primary care provider. This patient was seen by Donn Reinoso PA-C under the supervision of Doctor James. [] Discharge Diet: Low fat/ Low Cholesterol, 1800 Calorie Control Diet, 2000 mg Sodium Diet Discharge Activity: Return to Normal Activity Home Medications: Medications to take at Discharge Amiodarone HCl [Cordarone] 200 mg PO DAILY 05/10/17 Clindamycin HCl 300 mg PO 4X/DAY 05/10/17 Clotrimazole/Betamethasone [Lotrisone] 1 applic TOPICAL BID 05/10/17 Docusate Sodium [Colace] 50 mg PO DAILY 05/10/17 Ergocalciferol [Vitamin D] 50,000 unit PO Q7D 05/10/17 Furosemide [Lasix] 40 mg PO BID 05/10/17 Gabapentin [Neurontin] 800 mg PO TIDCM 05/10/17 Losartan Potassium [Cozaar] 100 mg PO DAILY 05/10/17 Magnesium Oxide 400 mg PO BID 05/10/17 Metformin HCl [Glucophage] 500 mg PO BIDCM 05/10/17 Metoprolol Tartrate [Lopressor (beta man)] 50 mg PO BID 05/10/17 Mirabegron [Myrbetriq] 50 mg PO DAILY 05/10/17 Pantoprazole Sodium [Protonix] 40 mg PO DAILY 05/10/17 Rivaroxaban [Xarelto] 15 mg PO DAILY 05/10/17 Spironolactone 25 mg PO DAILY 05/10/17 levoFLOXacin tablet [Levaquin tablet] 250 mg PO DAILY 05/10/17 Nystatin 500,000 unit PO 4X/DAY #1 bottle 05/11/17 Following Prescrptions Were Given to Patient: Nystatin 500,000 unit PO 4X/DAY #1 bottle Primary Care Physician: Octaviano Franco Chi, MD [Primary Care Provider] - Please follow up with your Primary Care Physician in: 1-2 weeks Disposition: Home Minutes spent on discharge:: 35 Patient Condition:: Stable Medical Necessity - Tobacco Use Smoking Status: Former smoker Meaningful Use Info Meaningful Use Diagnoses (Choose all that apply): None applicable 05/11/17 1624 <Electronically signed by Donn RUIZ> Date Donn RUIZ 05/22/17 1744<Electronically signed by Armando Ramirez DO> Cosigner Signature (if applicable): Date Armando Ramirez DO CC: SARA Reinoso; Leigh Ann Ramirez; Octaviano Franco MD Signed CONSULTATION Observed: 05/18/2017 Status: F Source: [place] 9:49 AM [facility] Medical Records Department [address] [place] [id number] Consultation 05/17/172158 MR#: [id number] Acct: [id number] Name: NIKKI VIZCARRA Rep #: [id number] : 1945 72 From: Adalid Brown MD PCP: Octaviano Franco MD, Chi Status: REG RCR Y Location: Problem List (1) Ulcer of left lower extremity with fat layer exposed Status: Acute Reason for Consult: infected leg ulcer Consulted by: Dr. Dutton History of Present Illness: The patient is a 72 year old F with DM who fell and cut her L cabrera about 4 weeks ago. Has had difficulty healing, ongoing eschar. Some pain. No fever or chills. Recently admitted to [facility], discharged on 05/11 on nystatin for thrush and levaquin/clinda. Recent wound cx with MRSE, anaerobes. Full ROS performed and neg except as noted above. - Medical History Past Medical History (Chronic Problems): Chronic Problems (Last Updated 05/10/17 @ 23:30 by Kary Monk MD) PVD (peripheral vascular disease) (Chronic) Controlled diabetes mellitus (Chronic) Edema, lower extremity (Chronic) Presence of stent in coronary artery (Chronic) PTCA/stent to CX; PTCA/Stent PTCA/stent to prox RCA 05/06; PTCA/LILY in mid to distal RCA 08/29/12 Atherosclerotic heart disease of [place] coronary artery without angina pectoris (Chronic) PTCA/stent to CX; PTCA/Stent PTCA/stent to prox RCA 05/06; PTCA/LILY in mid to distal RCA 08/29/12; CABG x2 ARREGUIN tp LAD and SVG to OM2 01/02/11 S/P CABG (coronary artery bypass graft) (Chronic 01/02/11) CABG x2 ARREGUIN tp LAD and SVG to OM2 01/02/11 Paroxysmal atrial fibrillation (Chronic) Hyperlipidemia (Chronic) Hypertension (Chronic) Allergies/Adverse Reactions: Allergies ciprofloxacin [From Cipro] Allergy (Verified 05/10/17 21:28) Hives ciprofloxacin HCl [From Cipro] Allergy (Verified 05/10/17 21:28) Hives Latex, Natural Rubber Allergy (Verified 05/10/17 21:28) Rash Penicillins [PCN] Allergy (Verified 05/10/17 21:28) Hives codeine Adverse Reaction (Unknown, Verified 05/10/17 21:28) Unknown adhesive tape Adverse Reaction (Verified 05/10/17 21:28) Rash Home Medications: Ambulatory Orders Medication Instructions Recorded Amiodarone HCl [Cordarone] 200 mg PO DAILY 05/10/17 Clindamycin HCl 300 mg PO 4X/DAY 05/10/17 Clotrimazole/Betamethasone 1 applic TOPICAL BID 05/10/17 - Social History Tobacco Use: non-smoker Vital Signs Temp Pulse Resp BP 98.4 F 75 16 126/88 H 05/17/17 10:12 05/17/17 10:12 05/17/17 10:12 05/17/17 10:12 Oxygen Delivery Method Room Air Finger Stick Blood Glucose 187 Microbiology Past 72 Hours 05/10/17 12:00 Gram Stain - Final Wound - Other Wound Culture - Final - Other Studies Radiology: [] reviewed Other Studies: [] Route of nutrition/ use of supplements: [] Nutritional Intake: [] IV Site: [] [place] Catheter: [] - Physical Exam General: Alert, Oriented x3, Cooperative HEENT: Atraumatic, PERRLA, EOMI Lungs: Clear to auscultation, Normal air movement Cardiovascular: Regular rate, Regular Rhythm, No murmurs Abdomen: Bowel Sounds Present, Soft, Non Tender, Non-Distended Extremities: Edema Skin: Ulcer/ Wound - L cabrera wound with eschar, reviewed photos Musculoskeletal: No Tenderness to Palpation of Joints or Extremities Neurological: Cranial nerves II-XII grossly intact - Assessment/Plan Antibiotics: [] Assessment/Plan: [] L cabrera infected wound - recent cx with MRSE and anaerobes. Will give 2 week course of linezolid and flagyl. She does not drink etoh. Gave coupon to help with cost of linezolid. Reviewed labs and med list. Thank you, will follow as needed. D/w Dr. Dutton. 05/18/17 0949 <Electronically signed by Adalid Brown MD> Date Adalid Brown MD Cosigner Signature (if applicable): Date CC: Octaviano Franco MD Signed KIDNEY AND BLADDER Observed: 05/16/2017 Status: F Source: [place] 12:37 PM [facility] Imaging Services [address] [place] [address] [place] [address] Kidney and Bladder MR#: [id number] Acct: [id number] Name: NIKKI VIZCARRA Rep #: [id number] : 1945 F 72 From: Abundio Don MD PCP: Octaviano Franco MD, Chi Status: REG CLI Study: Kidney and Bladder Date of Exam: 05/16/17 Exam# [id number] Ordering Dr: Hodan Cortes DO STUDY: RENAL ULTRASOUND - COMPLETE REASON FOR EXAM: Female, 72 years old. Acute renal failure TECHNIQUE: Ultrasound evaluation of the kidneys was performed with real-time and static eden-scale imaging. COMPARISON: None. FINDINGS: RIGHT KIDNEY: Normal location of the right kidney, which is normal in size. The right kidney measures 9.5 x 4.1 x 4.9 cm. There is a normal cortex of the right kidney. The renal cortex measures 1.1 cm. There is no right renal mass or cyst. There are no right renal calculi. There is no right hydronephrosis. Echogenic kidneys. DISTAL RIGHT URETER: There is non-visualization of the distal right ureter. There is no demonstrated right ureterovesical junction calculus. There is no demonstrated right ureteral jet. LEFT KIDNEY: Normal location of the left kidney, which is normal in size. The left kidney measures 10.2x4.1x5.5 cm. There is a normal cortex of the left kidney. The renal cortex measures 1.3 cm. There is no left renal mass or cyst. 4 x 6mm nonobstructive left renal calculus. There is no left hydronephrosis. Echogenic kidney. DISTAL LEFT URETER: There is non-visualization of the distal left ureter. There is no demonstrated left ureterovesical junction calculus. There is no demonstrated left ureteral jet. AORTA: There is obscuration of the abdominal aorta by overlying bowel gas I.V.C.: The IVC is obscured. BLADDER: The distended urinary bladder has a volume of 149 ml. There is a normal wall thickness of the distended urinary bladder. There is no demonstrated mass within the urinary bladder. There are no demonstrated bladder calculi. US/Kidney and Bladder IMPRESSION: 4 x 6mm nonobstructive left renal calculus. There is increased echogenicity of both kidneys suggesting chronic medical renal disease. Electronically Signed: Abundio Don MD at 17:38 EDT , Service support , CC: Hodan Cortes DO; Octaviano Franco MD Induction Machine Setter: Signed 12 LEAD ELECTROCARDIOGRAM Observed: 05/15/2017 Status: F Source: [place] 9:08 AM [facility] Cardiovascular Services [address] [place] [id number] 12 Lead EKG 05/11/17 0532 MR#: [id number] Acct: [id number] Name: NIKKI VIZCARRA Rep #: [id number] : 1945 72 From: Kurtis Barajas MD Attending Dr: Leigh Ann Ramirez Status: DIS FABRICIO Ordering Dr: Kary Monk MD Date: 05/11/17 Location: [facility] Sex: F C Admitted: 05/10/17 Test Reason : AM EKG Blood Pressure : / mmHG Vent. Rate : 070 BPM Atrial Rate : 070 BPM P-R Int : 162 ms QRS Dur : 078 ms QT Int : 414 ms P-R-T Axes : 031 015 128 degrees QTc Int : 447 ms Normal sinus rhythm ST AND T wave abnormality, consider lateral ischemia Abnormal ECG When compared with ECG of 10-MAY-2017 22:39, MANUAL COMPARISON REQUIRED, DATA IS UNCONFIRMED Confirmed by KARL HATCH, KURTIS ([id number]), editor magazine SHAHNAZ MARINA ([id number]) on 05/15/2017 9:08:15 AM Referred By: JOSUE Confirmed By:KURTIS BARAJAS MD 05/15/17 0908 Date Kurtis Barajas MD CC: Leigh Ann Ramirez; Kary Monk; Octaviano Franco MD Signed 12 LEAD ELECTROCARDIOGRAM Observed: 05/14/2017 Status: F Source: [place] 2:20 PM [facility]POSITORY [facility] Cardiovascular Services [address] [place] [address] 12 Lead EKG 05/10/17 2239 MR#: [id number] Acct: [id number] Name: NIKKI VIZCARRA Rep #: [id number] : 1945 72 From: Kurtis Barajas MD Attending Dr: Leigh Ann Ramirez Status: DIS FABRICIO Ordering Dr: Daily Ross MD Date: 05/10/17 Location: [facility] Sex: F C Admitted: 05/10/17 Test Reason : REPEAT Blood Pressure : / mmHG Vent. Rate : 080 BPM Atrial Rate : 080 BPM P-R Int : 168 ms QRS Dur : 076 ms QT Int : 372 ms P-R-T Axes : 042 010 133 degrees QTc Int : 429 ms Normal sinus rhythm ST AND T wave abnormality, consider lateral ischemia Abnormal ECG Confirmed by KURTIS BARAJAS MD ([id number]), editor magazine SHAHNAZ MARINA ([id number]) on 05/14/2017 2:19:36 PM Referred By: YESSI Confirmed By:KURTIS BARAJAS MD 05/14/17 141 Date Kurtis Barajas MD CC: MD Jesus Ross; Leigh Ann Ramirez; Octaviano Franco MD Signed 12 LEAD ELECTROCARDIOGRAM Observed: 05/14/2017 Status: F Source: [place] 2:19 PM [facility] Cardiovascular Services [address] [place] [address] 12 Lead EKG 05/10/175 MR#: [id number] Acct: [id number] Name: NIKKI VIZCARRA Rep #: [id number] : 1945 72 From: Kurtis Barajas MD Attending Dr: Leigh Ann Ramirez Status: DIS FABRICIO Ordering Dr: Daily Ross MD Date: 05/10/17 Location: [facility] Sex: F C Admitted: 05/10/17 Test Reason : CP Blood Pressure : / mmHG Vent. Rate : 077 BPM Atrial Rate : 077 BPM P-R Int : 172 ms QRS Dur : 078 ms QT Int : 364 ms P-R-T Axes : 057 013 120 degrees QTc Int : 411 ms Normal sinus rhythm ST AND T wave abnormality, consider lateral ischemia Abnormal ECG Confirmed by KURTIS BARAJAS MD ([id number]), editor magazine SHAHNAZ MARINA ([id number]) on 05/14/2017 2:19:19 PM Referred By: YESSI Confirmed By:KURTIS BARAJAS MD 05/14/17 141 Date Kurtis Barajas MD CC: MD Jesus Cejayecarina; Leigh Ann Ramirez; Octaviano Franco MD Signed BEDSIDE GLUCOSE Collected: 05/11/2017 Status: F Source: [place] 4:18 PM [facility] TYPE CODE TESTS RESULT OUT OF REFERENCE UNITS RANGE LAB L501.080 70-110 mg/dL High BEDSIDE GLU 120 Result Comment: MANAGEMENT OF PATIENT CARE PER NURSING PROTOCOL Performed By: #### L501.080 #### [facility] Point of Care [address] [place] [address] DISCHARGE INSTRUCTION Observed: 05/11/2017 Status: F Source: [place] 4:16 PM [facility] Medical Records Department [address] [place] [address] Instructions for Home/Discharge Instructions 05/11/17 1615 MR#: [id number] Acct: [id number] Name: NIKKI VIZCARRA Rep #: [id number] : 1945 72 From: Donn RUIZ PCP: Salvador HATCH,Octaviano Logan Status: ADM FABRICIO You will use the following diet at home:: Calorie/Carbohydrate Controlled (specify 1200, 1400, etc) - 1800cal/day, Cardiac Your food should be the consistency of: Regular Your liquids should be the consistency of: Regular/Thin Discharge Activity: Return to Normal Activity Allergies/Adverse Reactions: Allergies ciprofloxacin [From Cipro] Allergy (Verified 05/10/17 21:28) Hives ciprofloxacin HCl [From Cipro] Allergy (Verified 05/10/17 21:28) Hives Latex, Natural Rubber Allergy (Verified 05/10/17 21:28) Rash Penicillins [PCN] Allergy (Verified 05/10/17 21:28) Hives codeine Adverse Reaction (Unknown, Verified 05/10/17 21:28) Unknown adhesive tape Adverse Reaction (Verified 05/10/17 21:28) Rash Medications to take at Discharge Amiodarone HCl [Cordarone] 200 mg PO DAILY 05/10/17 Clindamycin HCl 300 mg PO 4X/DAY 05/10/17 Clotrimazole/Betamethasone [Lotrisone] 1 applic TOPICAL BID 05/10/17 Docusate Sodium [Colace] 50 mg PO DAILY 05/10/17 Ergocalciferol [Vitamin D] 50,000 unit PO Q7D 05/10/17 Furosemide [Lasix] 40 mg PO BID 05/10/17 Gabapentin [Neurontin] 800 mg PO TIDCM 05/10/17 Losartan Potassium [Cozaar] 100 mg PO DAILY 05/10/17 Magnesium Oxide 400 mg PO BID 05/10/17 Metformin HCl [Glucophage] 500 mg PO BIDCM 05/10/17 Metoprolol Tartrate [Lopressor (beta man)] 50 mg PO BID 05/10/17 Mirabegron [Myrbetriq] 50 mg PO DAILY 05/10/17 Pantoprazole Sodium [Protonix] 40 mg PO DAILY 05/10/17 Rivaroxaban [Xarelto] 15 mg PO DAILY 05/10/17 Spironolactone 25 mg PO DAILY 05/10/17 levoFLOXacin tablet [Levaquin tablet] 250 mg PO DAILY 05/10/17 Nystatin 500,000 unit PO 4X/DAY #1 bottle 05/11/17 The following prescriptions were given: Nystatin 500,000 unit PO 4X/DAY #1 bottle Primary Care Physician: Octaviano Franco Chi, MD [Primary Care Provider] - Please follow up with your Primary Care Physician in: 1-2 weeks Proposed Discharge Date: 05/11/17 05/11/17 1616 <Electronically signed by Donn RUIZ> Date Donn RUIZ CC: Octaviano Franco MD BEDSIDE GLUCOSE Collected: 05/11/2017 Status: F Source: [place] 10:19 AM [facility] TYPE CODE TESTS RESULT OUT OF REFERENCE UNITS RANGE LAB L501.080 70-110 mg/dL High BEDSIDE GLU 114 Result Comment: MANAGEMENT OF PATIENT CARE PER NURSING PROTOCOL Performed By: #### L501.080 #### [facility] Point of Care [address] [place] [address] STRESS REPORT Observed: 05/11/2017 Status: F Source: [place] 9:36 AM [facility] Cardiovascular Services [address] [place] [address] MR#: [id number] Acct: [id number] Name: NIKKI VIZCARRA Rep #: [id number] : 1945 72 From: Kurtis Barajas MD Primary Care: Octaviano Franco MD, Chi Status: ADM FABRICIO Ordering Dr: Sex: F C Stress Test Report Pharmacologic myocardial perfusion stress test. 72-year-old lady with a history of chest pain and coronary artery disease. Stress protocol: Resting EKG demonstrates normal sinus rhythm with a rate of 72 bpm T-wave inversions noted one in aVL. 0.4 mg of regadenoson was infused per usual protocol followed by rapid intravenous saline flush injection continuous EKG monitoring was performed. The maximum heart rate was 89 bpm is 58% maximum predicted heart rate maximum workload was [address] or T-wave changes were noted suggest abnormal flow reserve. Myocardial perfusion protocol. 14.7 mCi of technetium 99m sestamibi was injected stress images were obtained stress and rest images were reconstructed and compared in the short axis vertical long horizontal long axis. At peak infusion 44.8 mCi of technetium 99m sestamibi was injected. Gated images were also obtained Perfusion SPECT analysis: Review of the stress images demonstrate normal uptake of tracer noted in all areas of the myocardium. The resting images similarly demonstrate normal uptake of tracer noted in all areas of the myocardium. No areas of reversibility are noted to suggest ischemia. Gated SPECT analysis: The gated ejection fraction is 89%. Conclusion: Normal pharmacologic myocardial perfusion stress test. Preserved ejection fraction. 05/11/17935 <Electronically signed by Kurtis Barajas MD> Date Kurtis Barajas MD CC: Leigh Ann Ramirez; Octaviano Franco MD Date Dictated: 05/11/17932 Date Transcribed: 05/11/17932 Induction Machine Setter: CO Signed BEDSIDE GLUCOSE Collected: 05/11/2017 Status: F Source: [place] 5:51 AM [facility] TYPE CODE TESTS RESULT OUT OF RANGE REFERENCE UNITS LAB L501.080 70-110 mg/dL Normal BEDSIDE GLU 95 Result Comment: MANAGEMENT OF PATIENT CARE PER NURSING PROTOCOL Performed By: #### L501.080 #### [facility] Point of Care [address] [place] [address] CBC W/DIFF, AUTOMATED Collected: 05/11/2017 Status: F Source: [place] 5:30 AM [facility] TYPE CODE TESTS RESULT OUT OF RANGE REFERENCE UNITS LAB L100.1000 4.4-11.0 K/mm3 Normal WBC 9.2 LAB L100.1200 4.2-5.4 M/mm3 Low RBC 3.96 LAB L100.1300 12.0-15.0 g/dl Low HGB 11.7 LAB L100.1400 37-47 % Normal HCT 37.6 LAB L100.1500 81-99 fL Normal MCV 94.9 LAB L100.1600 27.0-32.0 pg Normal MCH 29.5 LAB L100.1700 32-36 g/gl Low MCHC 31.1 LAB L100.1810 11.6-14.6 % High RDW CV 15.7 LAB L100.1820 35.1-43.9 fl High RDW SD 54.1 LAB L100.1900 150-450 K/mm3 Normal PLT 208 LAB L100.2000 6.2-12.0 fl Normal MPV 9.2 LAB L100.2100 47-70 % High NEUT% 70.1 LAB L100.2200 19-41 % Normal LY% 20.7 LAB L100.2300 0-10 % Normal MONO% 7.8 LAB L100.2400 0-5 % Normal EO% 0.9 LAB L100.2500 0-1 % Normal BASO% 0.1 LAB L100.2550 0.0-0.9 % Normal IM GRAN % 0.400 Result Comment: IG% - Immature Granulocytes (promyelocytes, myelocytes and metamyelocytes) > 1% indicates that a LEFT SHIFT is Present. LAB L100.2620 2.0-7.7 X10 3/uL Normal Absolute Neut 6.4 LAB L100.2720 0.83-4.51 X10 3/ul Normal Absolute Lymph 1.89 Performed By: #### L100.0100, L300.3900, L300.4310 #### [facility] [address] [place], [address] PROTHROMBIN TIME W/INR Collected: 05/11/2017 Status: F Source: [place] 5:30 AM [facility] TYPE CODE TESTS RESULT OUT OF RANGE REFERENCE UNITS LAB L300.4150 11.7-14.9 SECONDS High PROTIME 16.5 LAB L300.4200 Normal INR 1.3 Performed By: #### L100.0100, L300.3900, L300.4310 #### [facility] [address] [place], [address] PARTIAL THROMBOPLAST Collected: 05/11/2017 Status: F Source: [place] TIME 5:30 AM [facility] TYPE CODE TESTS RESULT OUT OF RANGE REFERENCE UNITS LAB L300.4310 24.1-36.2 Seconds Normal PTT 30.3 Performed By: #### L100.0100, L300.3900, L300.4310 #### [facility] [address] [place], [address] BASIC METABOLIC Collected: 05/11/2017 Status: F Source: [place] PROFILE (BMP) 5:30 AM [facility] TYPE CODE TESTS RESULT OUT OF RANGE REFERENCE UNITS LAB L501.0100 74-106 mg/dL Normal GLU 93 Result Comment: Please note revised GLUCOSE reference range effective 2017. LAB L501.1000 7-18 mg/dL High BUN 34 LAB L501.1100 0.55-1.02 mg/dL High CREAT,SERUM 1.71 Result Comment: The validity of the calculated GFR AND GFRAA in patients over 70 years has not been determined. Clinical correlation is essential. LAB L501.1110 >60 mL/min Low EST GFR 31 Result Comment: Non- GFR Calc LAB L501.1115 >60 mL/min Low EST GFR - AA 38 Result Comment: GFR Calc LAB L501.1255 ml/min Normal Estimated CRCL 46.63 LAB L501.1300 10-20 RATIO Normal BUN/CRE 19.9 LAB L501.2200 8.5-10 mg/dL Normal .1 CA 8.8 LAB L501.5300 136-14 mmol/L Normal 5 NA 140 LAB L501.5600 3.5-5. mmol/L Normal 1 K 4.4 LAB L501.5900 98-107 mmol/L Normal CL 104 LAB L501.6100 21.0-3 mmol/L Normal 2.0 CO2 28.0 LAB L501.6200 5-15 Normal GAP 8 Performed By: #### L500.2500 #### [facility] [address] [place], [address] TROPONIN-I Collected: 05/11/2017 Status: F Source: [place] 5:30 AM [facility] Order Comment: 'TROP' Serial specimen #1, #2, #3, or #4: 3 TYPE CODE TESTS RESULT OUT OF RANGE REFERENCE UNITS LAB L501.4010 <0.06 ng/mL Normal < 0.02 TROPONIN-I Result Comment: TROPONIN-I EXPECTED VALUES <0.05 NEGATIVE 0.06 - 0.59 AT RISK OF HI > OR = 0.60 SUGGEST HI Performed By: #### L501.4010 #### [facility] [place], [place], [address] TROPONIN-I Collected: 05/11/2017 Status: F Source: [place] 1:35 AM [facility] Order Comment: 'TROP' Serial specimen #1, #2, #3, or #4: 2 TYPE CODE TESTS RESULT OUT OF RANGE REFERENCE UNITS LAB L501.4010 <0.06 ng/mL Normal < 0.02 TROPONIN-I Result Comment: TROPONIN-I EXPECTED VALUES <0.05 NEGATIVE 0.06 - 0.59 AT RISK OF HI > OR = 0.60 SUGGEST HI Performed By: #### L501.4010 #### [facility] [address] [place], [place], [address] HISTORY AND PHYSICAL Observed: 05/10/2017 Status: F Source: [place] EXAM 11:42 PM [facility] Medical Records Department [address] [place] [address] History and Physical 05/10/17 2330 MR#: [id number] Acct: [id number] Name: NIKKI VIZCARRA Rep #: [id number] : 1945 72 From: Kary Monk MD PCP: Octaviano Franco MD, Chi Status: ADM FABRICIO Y Location: [place] [address] Problem List (1) PVD (peripheral vascular disease) Status: Chronic (2) Ulcer of left lower extremity with fat layer exposed Status: Acute (3) Controlled diabetes mellitus Status: Chronic (4) S/P CABG (coronary artery bypass graft) Status: Chronic Comment: CABG x2 ARREGUIN tp LAD and SVG to OM2 01/02/11 (5) Paroxysmal atrial fibrillation Status: Chronic (6) Hyperlipidemia Status: Chronic (7) Hypertension Status: Chronic History of Present Illness Date of Admission: 05/10/17 Chief Complaint: Chest pain. The patient is a 72 year old F with past medical history as mentioned above presented to the emergency room because of chest pain. Her symptoms started this evening around 8 PM with central chest pain, retrosternal, came on when she was folding her laundry, pressure-like pain, 8 out of 10 in severity, radiates to her neck on the right side, associated with mild shortness of breath and dizziness and it lasted for few minutes and then eased up but started to come back again shortly. At this time, she mentioned that her pain is almost gone. She denied obvious relieving or aggravating factors. She denies syncope or presyncope. Around 2 weeks ago, she had a fall that was complicated by injury and laceration of the left leg and she has been seen at the wound care center and she has been on antibiotics. She was seen today at the wound care center and she was informed that her wound looks better and she was discharged on antibiotics. In the emergency room, her vital signs are stable. Her routine blood work was remarkable for mild leukocytosis and creatinine of 1.85 which is chronic. Troponin is negative. EKG revealed normal sinus rhythm without evidence of acute ischemic changes. Chest x-ray showed no acute infiltrate, consolidation or effusion. She is being admitted for chest pain for evaluation. Past Medical History Past Medical History (Chronic Problems): Chronic Problems (Last Updated 04/11/17 @ 12:11 by Lisa Hutton) PVD (peripheral vascular disease) (Chronic) Controlled diabetes mellitus (Chronic) Edema, lower extremity (Chronic) Presence of stent in coronary artery (Chronic) PTCA/stent to CX; PTCA/Stent PTCA/stent to prox RCA 05/06; PTCA/LILY in mid to distal RCA 08/29/12 Atherosclerotic heart disease of [place] coronary artery without angina pectoris (Chronic) PTCA/stent to CX; PTCA/Stent PTCA/stent to prox RCA 05/06; PTCA/LILY in mid to distal RCA 08/29/12; CABG x2 ARREGUIN tp LAD and SVG to OM2 01/02/11 S/P CABG (coronary artery bypass graft) (Chronic 01/02/11) CABG x2 ARREGUIN tp LAD and SVG to OM2 01/02/11 Paroxysmal atrial fibrillation (Chronic) Hyperlipidemia (Chronic) Hypertension (Chronic) Allergies ciprofloxacin [From Cipro] Allergy (Verified 05/10/17 21:28) Hives ciprofloxacin HCl [From Cipro] Allergy (Verified 05/10/17 21:28) Hives Latex, Natural Rubber Allergy (Verified 05/10/17 21:28) Rash Penicillins [PCN] Allergy (Verified 05/10/17 21:28) Hives codeine Adverse Reaction (Unknown, Verified 05/10/17 21:28) Unknown adhesive tape Adverse Reaction (Verified 05/10/17 21:28) Rash Home Medications: Ambulatory Orders Medication Instructions Recorded Amiodarone HCl [Cordarone] 200 mg PO DAILY 05/10/17 Clindamycin HCl 300 mg PO 4X/DAY 05/10/17 Clotrimazole/Betamethasone 1 applic TOPICAL BID 05/10/17 Surgical History: angioplasty, appendectomy, cholecystectomy, coronary bypass surgery, hysterectomy, tonsillectomy, - - R ankle surgery with hardware. placement of stents (cardiac or lower extremity. patient is unsure). excision upper lip carcinoma. Incision and drainage and excisional debridement infected traumatic open hematoma wound right anterior leg (90 cm2) and incision and drainage and excisional debridement infected traumatic open hematoma wound left anterior leg (72 cm2) - 12/29/14. 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 Sibling History Items: Diabetes Review of Systems Constitutional: Denies: Anorexia, Chills, Fever, Weakness Eyes: Denies: Blurred vision, Double vision, Drainage, Redness HEENT: Denies: Difficulty Hearing, Ear Pain, Eye Pain, Nasal Congestion, Sore Throat Cardiovascular: Reports: Chest Pain, Chest Pressure, Edema. Denies: Heaviness, Light Headedness, Orthopnea, Palpitations, Syncope Respiratory: Reports: Shortness of Breath. Denies: Cough, Hemoptysis, Pleuritic Pain, Sputum production, Wheezing Gastrointestinal: Denies: Abdominal Pain, Constipation, Diarrhea, Nausea, Vomiting Genitourinary: Denies: Dysuria, Frequency, Hematuria Musculoskeletal: Denies: Arm Pain, Back Pain, Foot Pain Skin: Denies: Dryness, Rash Neurological: Denies: Balance problems, Change in Speech, Slurred speech, Confusion, Headaches, Incoordination, Numbness Psychiatric: Denies: Anxiety, Depression Endocrine: Denies: Change in Body Habitus, Polydipsia VTE Information - Inpt Only VTE Present on Admission: No VTE Mechan Device Prophylaxis: None VTE Pharm Prophylaxis ordered?: No - Physical Exam General: Alert, Oriented x3, Cooperative, No apparent distress HEENT: Atraumatic, PERRLA, EOMI Oral: Moist Mucosa, No Gingival or Mucosal Lesions/ Ulcerations Neck: Supple, No JVD, Negative Carotid Bruits, Trachea Midline, Thyroid Normal Size and Texture Lungs: Clear to auscultation, No rhonchi, No wheeze, No rales, Diminished Cardiovascular: Regular rate, Regular Rhythm, Normal S1, Normal S2, PMI Normal Abdomen: Bowel Sounds Present, Soft, Non Tender, Non-Distended, No Hepato-splenomegaly, Obese Extremities: No clubbing, No cyanosis, Edema - + Edema. Skin: No rashes, Ulcer/ Wound - Left leg: Linear laceration on the cabrera of the left leg measuring about 7 cm. 2 areas of black discoloration on the lateral aspect of the left leg with surrounding erythema and minimal serous drainage. Lymphatic: No Cervical, Supraclavicular, or Inguinal Adenopathy Neurological: Cranial nerves II-XII grossly intact, Motor Exam 5/5 strength throughout Psych/Mental Status: Normal Affect, Appropriate, Alert and oriented to time, place, person, mood and affect Vital Signs Temp Pulse Resp BP Pulse Ox 97.9 F 72 16 101/46 L 99 05/10/17 21:23 05/10/17 23:19 05/10/17 23:19 05/10/17 23:19 05/10/17 23:19 Oxygen Flow Rate (L/min) 2 Oxygen Delivery Method Nasal Cannula Weight: 227 lb 15.327 oz Body Mass Index (BMI) 44.5 Finger Stick Blood Glucose 187 Laboratory Tests Past 24 Hrs WBC 11.5 H RBC 4.17 L Hgb 12.4 Hct 39.2 MCV 94.0 MCH 29.7 MCHC 31.6 L RDW 15.8 H RDW Differential 54.0 H Clinical Impression(s) from Imaging Studies Chest X-Ray 05/10/17 21:40 IMPRESSION: No acute thoracic pathology. Electronically Signed: Andreas Polanco, at 22:49 EDT Tel , Service support , Assessment/Plan This is a 72 years old female patient presented to the emergency room because of chest pain and she is being admitted for evaluation. #1 chest pain: In context of history of CAD status post stents and CABG as well as type 2 diabetes mellitus, hypertension and hyperlipidemia. EKG revealed no acute ischemic changes. First troponin was negative. Chest x-ray without acute findings. He had stress test back in August, that was normal. Her TIFFANY score is 4. End: Admit [facility] for observation, cardiac monitoring, serial cardiac enzymes, repeat EKG tomorrow morning, nuclear stress tomorrow morning if cardiac enzymes are negative, continue aspirin, losartan and hold metoprolol for stress test. #2 recent history of left lower extremity injury/laceration/wound: She has been seen at the wound care center, last time was today and she was informed that her wound looks better. She was seen by Dr. Bayron Dutton. She was sent home on Levaquin and clindamycin. At this time, left leg is erythematous with minimal serous drainage. Wound culture was taken today at the wound care center. Plan: Continue clindamycin and Levaquin, wound care nurse consult. #3 CAD status post stents and CABG: Plan as above, continue aspirin, losartan, Xarelto, hold metoprolol for stress test. #4 type 2 diabetes mellitus: ADA diet, Accu-Cheks, insulin sliding scale, hold metformin. #5 hypertension: Blood pressure stable, continue losartan, Lasix and Aldactone. #6 paroxysmal A. fib: Rate is controlled. Continue Xarelto for anticoagulation, hold metoprolol tonight for stress test, resume metoprolol tomorrow. #7 DVT prophylaxis: Continue Xarelto. This note was generated with [employer] software. It may contain incorrect words, spelling, and punctuation that were not noted in checking the note before signing. Code Visit OBSV E AND M: [id number] Initial observation care L3 05/10/17 4382 <Electronically signed by Kary Monk MD> Date Kary Monk MD Cosigner Signature: Date (if applicable) CC: Kary Monk; Octaviano Franco MD Signed EMERGENCY DEPARTMENT Observed: 05/10/2017 Status: F Source: [place] SUMMARY 11:24 PM [facility] RE[facility]IT[facility] Medical Records Department [address] [place] [address] Emergency Department Summary 05/10/172202 MR#: [id number] Acct: [id number] Name: NIKKI VIZCARRA Rep #: [id number] : 1945 72 From: Daily Ross MD PCP: Octaviano Franco MD, Chi Status: REG ER - ER Visit Summary Date of Service: 05/10/17 Chief Complaint: [] Chest pain this evening folding laundry History of Present Illness: The patient is a 72 F [] history of CABG HI in 2013, recent injury to left leg causing large laceration, seen at wound care today for that, she recently completed about 7-10 days of IV antibiotics through family physician's office, when seen by wound care today she was told the wound looks better and it is healing but it is still draining, she began having pressure in her chest into her jaw it did not improve and her family brought her to the emergency department Her cardiac status has been stable since her CABG and marti- CABG HI, she has no history of PE she indicates she may have had a DVT 10 years ago but nothing recent her bowel and bladder habits have been normal no fever no cough she was feeling fine before the onset of the chest pain, chest pain does feel like her prior angina it is uncommon it is uncommon for her to have pain in her jaw Physical Examination: [] She is in no distress head neck chest unremarkable lungs clear heart tones are normal the abdomen is obese but soft nontender the left lower extremity has a wound care dressing that we broke down, she has a linear incision that is still partially open it was sutured the sutures were taken out a few days ago this area is red there is a black eschar laterally looks like it represents a healing blister but she indicates the wound appears better despite the redness and her physicians who have been managing her report that it is improving, Test Results: [] Emergency Department Course and Treatment: [] EKG shows a sinus rhythm nothing acute pain management screening labs chest x-ray His labs are all generally unremarkable white count of 11.5 creatinine 1.85, chronic second EKG showed nothing acute she has flipped T waves in lead I and aVL that were present prior Feeling much better her chest pain appears to be resolved her vital signs remained stable given that she is on Xarelto her creatinine is 1.85 DVT PE would be less likely I spoke with the hospitalist discussed the case with them in detail will be done to see her shortly for admission and will pursue further inpatient management Treatment Plan: [] Disposition: [] Admits stable pending hospital evaluation Impression: [] Chest pain radiating to jaw, history of angina, CABG /marti operative HI 2013, chronic left leg wound secondary to fall This note was generated with EnteGreat dictation software. It may contain incorrect words, spelling, and punctuation that were not noted in review of the chart prior to signing ED Disposition - Plan for ED Patient: Chief Complaint: Chest Pain Referrals: Octaviano Franco Chi, MD [Primary Care Provider] - What to do if you have Problems For any increased pain, shortness of breath, bleeding, nausea or vomiting, chest pain, or any unexpected problems, contact your Primary Care Provider. Call [facility] ([phone]) or report to the closest Emergency Room. Call 911 if necessary. 05/10/17 7421 <Electronically signed by Daily Ross MD> Date Daily Ross MD Cosigner Signature (If Indicated): Date CC: Octaviano Franco MD CHEST 1 VIEW Observed: 05/10/2017 Status: F Source: [place] (PORTABLE) 9:35 PM [facility] Imaging Services [facility] [place] [address] Chest 1 View (Portable) MR#: [id number] Acct: [id number] Name: NIKKI VIZCARRA Rep #: [id number] : 1945 F 72 From: Andreas Polanco MD PCP: Octaviano Franco MD, Chi Status: REG ER Study: Chest 1 View (Portable) Date of Exam: 05/10/17 Exam# [id number] Ordering Dr: Daiyl Ross MD STUDY: X-RAY CHEST REASON FOR EXAM: Female, 72 years old. Chest pain TECHNIQUE: Frontal view of the chest COMPARISON: 04/19/2017 FINDINGS: The lungs are clear. There are no pleural effusions. There is no pneumothorax. The heart is normal in size. The patient is status post sternotomy. The visualized osseous structures are within normal limits. RAD/Chest 1 View (Portable) IMPRESSION: No acute thoracic pathology. Electronically Signed: Andreas Polanco, at 22:49 EDT Tel , Service support , CC: MD Jesus Ross; Octaviano Franco MD Induction Machine Setter: Signed CBC W/DIFF, AUTOMATED Collected: 05/10/2017 Status: F Source: RUY 9:30 PM [facility] TYPE CODE TESTS RESULT OUT OF RANGE REFERENCE UNITS LAB L100.1000 4.4-11.0 K/mm3 High WBC 11.5 LAB L100.1200 4.2-5.4 M/mm3 Low RBC 4.17 LAB L100.1300 12.0-15.0 g/dl Normal HGB 12.4 LAB L100.1400 37-47 % Normal HCT 39.2 LAB L100.1500 81-99 fL Normal MCV 94.0 LAB L100.1600 27.0-32.0 pg Normal MCH 29.7 LAB L100.1700 32-36 g/gl Low MCHC 31.6 LAB L100.1810 11.6-14.6 % High RDW CV 15.8 LAB L100.1820 35.1-43.9 fl High RDW SD 54.0 LAB L100.1900 150-450 K/mm3 Normal PLT 243 LAB L100.2000 6.2-12.0 fl Normal MPV 9.4 LAB L100.2100 47-70 % Normal NEUT% 69.7 LAB L100.2200 19-41 % Normal LY% 19.5 LAB L100.2300 0-10 % Normal MONO% 9.5 LAB L100.2400 0-5 % Normal EO% 0.5 LAB L100.2500 0-1 % Normal BASO% 0.1 LAB L100.2550 0.0-0.9 % Normal IM GRAN % 0.700 Result Comment: IG% - Immature Granulocytes (promyelocytes, myelocytes and metamyelocytes) > 1% indicates that a LEFT SHIFT is Present. LAB L100.2620 2.0-7.7 X10 3/uL High Absolute Neut 8.0 LAB L100.2720 0.83-4.51 X10 3/ul Normal Absolute Lymph 2.25 Performed By: #### L100.0100 #### [facility] [place], [address] BASIC METABOLIC Collected: 05/10/2017 Status: F Source: [place] PROFILE (BMP) 9:30 PM [facility] Order Comment: 'TROP' Serial specimen #1, #2, #3, or #4: 1 TYPE CODE TESTS RESULT OUT OF RANGE REFERENCE UNITS LAB L501.0100 74-106 mg/dL Normal GLU 88 Result Comment: Please note revised GLUCOSE reference range effective 2017. LAB L501.1000 7-18 mg/dL High BUN 36 LAB L501.1100 0.55-1.02 mg/dL High CREAT,SERUM 1.85 Result Comment: The validity of the calculated GFR AND GFRAA in patients over 70 years has not been determined. Clinical correlation is essential. LAB L501.1110 >60 mL/min Low EST GFR 28 Result Comment: Non- GFR Calc LAB L501.1115 >60 mL/min Low EST GFR - AA 34 Result Comment: GFR Calc LAB L501.1255 ml/min Normal Estimated CRCL 19.45 LAB L501.1300 10-20 RATIO Normal BUN/CRE 19.5 LAB L501.2200 8.5-10 mg/dL Normal .1 CA 8.9 LAB L501.5300 136-14 mmol/L Normal 5 NA 139 LAB L501.5600 3.5-5. mmol/L Normal 1 K 4.5 LAB L501.5900 98-107 mmol/L Normal CL 107 LAB L501.6100 21.0-3 mmol/L Normal 2.0 CO2 25.0 LAB L501.6200 5-15 Normal GAP 7 Performed By: #### L500.2500, L501.4010 #### [facility] [address], [address] TROPONIN-I Collected: 05/10/2017 Status: F Source: RUY 9:30 PM [facility] Order Comment: 'TROP' Serial specimen #1, #2, #3, or #4: 1 TYPE CODE TESTS RESULT OUT OF RANGE REFERENCE UNITS LAB L501.4010 <0.06 ng/mL Normal < 0.02 TROPONIN-I Result Comment: TROPONIN-I EXPECTED VALUES <0.05 NEGATIVE 0.06 - 0.59 AT RISK OF HI > OR = 0.60 SUGGEST HI Performed By: #### L500.2500, L501.4010 #### [facility] [address] [place], [address] MRSA WOUND DNA BY Collected: 05/10/2017 Status: F Source: RUY PCR 12:00 PM [facility] Order Comment: Comments: L LE INCISION Specimen Source? L LE INCISION TYPE CODE TESTS RESULT OUT OF RANGE REFERENCE UNITS LAB L8200.1100 Negative Normal MRSA Negative RESULT LAB L8200.1150 Negative Normal SA RESULT NEGATIVE Performed By: #### L8200.1075 #### [facility] [address] [place], [address] Observed: 05/10/2017 Status: F Source: RUY CULTURE, DEEP WOUND 12:00 PM [facility] Comments: L LE INCISION Gram Stain Gram Stain No White Blood Cells No organisms seen Wound Culture Clinical correlation necessary, Possible skin contamination. ORGANISM 1: Staphylococcus epidermidis Amount Growth 1+ Staphylococcus epidermidis: REACTION Benzylpenicillin NF >=0.5 R Cefoxitin *NF + Clindamycin $$ >=8 R Inducable Clindamycin Res[place] - Erythromycin $ >=8 R Gentamicin $ <=0.5 S Levofloxacin $ >=8 R Linezolid $$$$ 1 S Oxacillin NF >=4 R Tigecycline $$$$ 0.25 S Rifampin $$ <=0.5 S Tetracycline NF >=16 R Vancomycin $ 1 S (NF) indicates non-formulary drug at [facility]. Approval by Infectious Disease Specialist required before non-formulary drugs may be ordered and/or dispensed. * CLSI guidelines does not recommend testing of cephalosporins. This interpretation is deduced from Beta-lactam/penicillin results. Cult, Anaerobic Studies have confirmed that Anaerobic Gram Positive Cocci are routinely susceptible to: Penicillin/Ampicillin, Ampicillin/Sulbactam, Piperacillin/Tazobactam, Cefoxatin, Ertapenem, Imipenem, Meropenem and Metronidazole and vary in resistance to: Clindamycin and Moxifloxacin. ORGANISM 1: Anaerobic cocci ORGANISM 2: Fusobacterium varium Beta Lactamase Negative Performed By: #### M100.1500 #### [facility] [address] [place], [place], [address] CBC W/DIFF, AUTOMATED Collected: 05/09/2017 Status: F Source: RUY 3:05 PM [facility] TYPE CODE TESTS RESULT OUT OF RANGE REFERENCE UNITS LAB L100.1000 4.4-11.0 K/mm3 Normal WBC 8.9 LAB L100.1200 4.2-5.4 M/mm3 Low RBC 3.98 LAB L100.1300 12.0-15.0 g/dl Normal HGB 12.0 LAB L100.1400 37-47 % Normal HCT 38.0 LAB L100.1500 81-99 fL Normal MCV 95.5 LAB L100.1600 27.0-32.0 pg Normal MCH 30.2 LAB L100.1700 32-36 g/gl Low MCHC 31.6 LAB L100.1810 11.6-14.6 % High RDW CV 15.7 LAB L100.1820 35.1-43.9 fl High RDW SD 52.8 LAB L100.1900 150-450 K/mm3 Normal PLT 251 LAB L100.2000 6.2-12.0 fl Normal MPV 10.3 LAB L100.2100 47-70 % High NEUT% 72.4 LAB L100.2200 19-41 % Low LY% 15.9 LAB L100.2300 0-10 % Normal MONO% 9.9 LAB L100.2400 0-5 % Normal EO% 0.6 LAB L100.2500 0-1 % Normal BASO% 0.2 LAB L100.2550 0.0-0.9 % High IM GRAN % 1.000 Result Comment: IG% - Immature Granulocytes (promyelocytes, myelocytes and metamyelocytes) > 1% indicates that a LEFT SHIFT is Present. LAB L100.2620 2.0-7.7 X10 3/uL Normal Absolute Neut 6.4 LAB L100.2720 0.83-4.51 X10 3/ul Normal Absolute Lymph 1.41 Performed By: #### L100.0100 #### [facility] [place], [address] BASIC METABOLIC Collected: 05/09/2017 Status: F Source: RUY PROFILE (BMP) 3:05 PM [facility] TYPE CODE TESTS RESULT OUT OF RANGE REFERENCE UNITS LAB L501.0100 74-106 mg/dL High GLU 114 Result Comment: Fasting Glucose result from 100 to 125 mg/dL suggests IMPAIRED HOMEOSTASIS per A.D.A. criteria. Please note revised GLUCOSE reference range effective 2017. LAB L501.1000 7-18 mg/dL High BUN 36 LAB L501.1100 0.55-1.02 mg/dL High CREAT,SERUM 1.55 Result Comment: The validity of the calculated GFR AND GFRAA in patients over 70 years has not been determined. Clinical correlation is essential. LAB L501.1110 >60 mL/min Low EST GFR 35 Result Comment: Non- GFR Calc LAB L501.1115 >60 mL/min Low EST GFR - AA 42 Result Comment: GFR Calc LAB L501.1300 10-20 RATIO High BUN/CRE 23.2 LAB L501.2200 8.5-10.1 mg/dL CA Normal 8.6 LAB L501.5300 136-145 mmol/L NA Normal 144 LAB L501.5600 3.5-5.1 mmol/L K Normal 4.5 LAB L501.5900 98-107 mmol/L High CL 110 LAB L501.6100 21.0-32.0 mmol/L Normal CO2 25.0 LAB L501.6200 5-15 Normal GAP 9 Performed By: #### L500.2500 #### [facility] [address] [place], [address] CBC W/DIFF, AUTOMATED Collected: 05/01/2017 Status: F Source: [place] 3:05 PM [facility] TYPE CODE TESTS RESULT OUT OF RANGE REFERENCE UNITS LAB L100.1000 4.4-11.0 K/mm3 Normal WBC 9.2 LAB L100.1200 4.2-5.4 M/mm3 Normal RBC 4.25 LAB L100.1300 12.0-15.0 g/dl Normal HGB 12.9 LAB L100.1400 37-47 % Normal HCT 40.2 LAB L100.1500 81-99 fL Normal MCV 94.6 LAB L100.1600 27.0-32.0 pg Normal MCH 30.4 LAB L100.1700 32-36 g/gl Normal MCHC 32.1 LAB L100.1810 11.6-14.6 % High RDW CV 16.1 LAB L100.1820 35.1-43.9 fl High RDW SD 53.9 LAB L100.1900 150-450 K/mm3 Normal PLT 219 LAB L100.2000 6.2-12.0 fl Normal MPV 10.5 LAB L100.2100 47-70 % High NEUT% 71.4 LAB L100.2200 19-41 % Normal LY% 19.2 LAB L100.2300 0-10 % Normal MONO% 7.8 LAB L100.2400 0-5 % Normal EO% 0.9 LAB L100.2500 0-1 % Normal BASO% 0.2 LAB L100.2550 0.0-0.9 % Normal IM GRAN % 0.500 Result Comment: IG% - Immature Granulocytes (promyelocytes, myelocytes and metamyelocytes) > 1% indicates that a LEFT SHIFT is Present. LAB L100.2620 2.0-7.7 X10 3/uL Normal Absolute Neut 6.6 LAB L100.2720 0.83-4.51 X10 3/ul Normal Absolute Lymph 1.77 Performed By: #### L100.0100 #### [facility] [address] [place], [place], [address] BASIC METABOLIC Collected: 05/01/2017 Status: F Source: [place] PROFILE (BMP) 3:05 PM [facility] TYPE CODE TESTS RESULT OUT OF RANGE REFERENCE UNITS LAB L501.0100 74-106 mg/dL High GLU 156 Result Comment: Fasting Glucose result greater than or equal to 126 mg/dL suggests DIABETES MELLITUS per A.D.A. criteria. Please note revised GLUCOSE reference range effective 2017. LAB L501.1000 7-18 mg/dL High BUN 42 LAB L501.1100 0.55-1.02 mg/dL High CREAT,SERUM 1.47 Result Comment: The validity of the calculated GFR AND GFRAA in patients over 70 years has not been determined. Clinical correlation is essential. LAB L501.1110 >60 mL/min Low EST GFR 37 Result Comment: Non- GFR Calc LAB L501.1115 >60 mL/min Low EST GFR - AA 45 Result Comment: GFR Calc LAB L501.1300 10-20 RATIO High BUN/CRE 28.6 LAB L501.2200 8.5-10.1 mg/dL CA Normal 9.3 LAB L501.5300 136-145 mmol/L NA Normal 140 LAB L501.5600 3.5-5.1 mmol/L K Normal 4.8 Result Comment: Moderate Hemolysis, Result may be falsely increased. LAB L501.5900 98-107 mmol/L Normal CL 106 LAB L501.6100 21.0-32.0 mmol/L Normal CO2 24.0 LAB L501.6200 5-15 Normal GAP 10 Performed By: #### L500.2500 #### [facility] [address] [place], [place], [address] CBC W/DIFF, AUTOMATED Collected: 04/27/2017 Status: F Source: [place] 12:51 PM [facility] TYPE CODE TESTS RESULT OUT OF RANGE REFERENCE UNITS LAB L100.1000 4.4-11.0 K/mm3 Normal WBC 10.6 LAB L100.1200 4.2-5.4 M/mm3 Normal RBC 4.63 LAB L100.1300 12.0-15.0 g/dl Normal HGB 13.7 LAB L100.1400 37-47 % Normal HCT 43.3 LAB L100.1500 81-99 fL Normal MCV 93.5 LAB L100.1600 27.0-32.0 pg Normal MCH 29.6 LAB L100.1700 32-36 g/gl Low MCHC 31.6 LAB L100.1810 11.6-14.6 % High RDW CV 16.5 LAB L100.1820 35.1-43.9 fl High RDW SD 56.4 LAB L100.1900 150-450 K/mm3 Normal PLT 239 LAB L100.2000 6.2-12.0 fl Normal MPV 10.1 LAB L100.2100 47-70 % Normal NEUT% 68.4 LAB L100.2200 19-41 % Normal LY% 22.7 LAB L100.2300 0-10 % Normal MONO% 7.4 LAB L100.2400 0-5 % Normal EO% 0.4 LAB L100.2500 0-1 % Normal BASO% 0.3 LAB L100.2550 0.0-0.9 % Normal IM GRAN % 0.800 Result Comment: IG% - Immature Granulocytes (promyelocytes, myelocytes and metamyelocytes) > 1% indicates that a LEFT SHIFT is Present. LAB L100.2620 2.0-7.7 X10 3/uL Normal Absolute Neut 7.3 LAB L100.2720 0.83-4.51 X10 3/ul Normal Absolute Lymph 2.42 Performed By: #### L100.0100 #### [facility] [address] [place], [address] VITAMIN D,25 HYDROXY Collected: 04/27/2017 Status: F Source: [place] 12:51 PM [facility] TYPE CODE TESTS RESULT OUT OF REFERENCE UNITS RANGE LAB L506.1000 29.95-100.01 ng/mL Low Vitamin D 20.0 25-OH Result Comment: Vitamin D 25(OH) Status Range Deficiency <20 ng/mL (50nmol/L) Insuffciency 20 - 30 ng/mL (50 - 75 nmol/L) Sufficiency 30 - 100 ng/mL (75 - 250 nmol/L) Toxicity >100 ng/mL (>250 nmol/L) Performed By: #### L506.1000 #### [facility] [address] [place], [place], [address] COMPREHENSIVE METABOLIC Collected: 04/27/2017 Status: F Source: [facility] 12:51 PM [facility] TYPE CODE TESTS RESULT OUT OF RANGE REFERENCE UNITS LAB L501.0100 74-106 mg/dL High GLU 127 Result Comment: Fasting Glucose result greater than or equal to 126 mg/dL suggests DIABETES MELLITUS per A.D.A. criteria. Please note revised GLUCOSE reference range effective 2017. LAB L501.1000 7-18 mg/dL High BUN 65 LAB L501.1100 0.55-1.02 mg/dL High CREAT,SERUM 2.57 Result Comment: The validity of the calculated GFR AND GFRAA in patients over 70 years has not been determined. Clinical correlation is essential. LAB L501.1110 >60 mL/min Low EST GFR 19 Result Comment: Non- GFR Calc LAB L501.1115 >60 mL/min Low EST GFR - AA 24 Result Comment: GFR Calc LAB L501.1300 10-20 RATIO High BUN/CRE 25.3 LAB L501.1500 6.4-8.2 g/dL T Normal PROT 6.4 LAB L501.1800 3.2-5.0 g/dL Normal ALB 3.2 LAB L501.1950 2.2-4.2 g/dL Normal GLOB 3.2 LAB L501.2000 0.9-2.4 RATIO Normal A/G 1.0 LAB L501.2200 8.5-10.1 mg/dL CA Normal 9.7 LAB L501.4100 15-37 U/L Normal AST 24 LAB L501.4305 45-117 U/L Normal ALK P 51 LAB L501.4405 13-56 U/L Normal ALT 44 Result Comment: Please note revised ALT reference range effective 2017. LAB L501.4600 0.20-1.00 mg/dL Normal T BILI 0.60 LAB L501.5300 136-145 mmol/L Low NA 135 LAB L501.5600 3.5-5.1 mmol/L High K 5.2 LAB L501.5900 98-107 mmol/L Low CL 96 LAB L501.6100 21.0-32.0 mmol/L Normal CO2 30.0 LAB L501.6200 5-15 Normal GAP 9 Performed By: #### L500.4050, L500.4100, L501.9520 #### [facility] [address] [place], [address] LIPID PROFILE Collected: 04/27/2017 Status: F Source: [place] 12:51 PM [facility] TYPE CODE TESTS RESULT OUT OF RANGE REFERENCE UNITS LAB L501.4900 200 mg/dL Normal CHOL 189 Result Comment: <200 mg/dL Desirable 200-240 mg/dL Borderline >240 mg/dL High Risk LAB L501.5000 mg/dL High TRIG 207 Result Comment: The drugs N-Acetylcysteine and Metamizole may falsely depress this assay. Serum Triglycerides Reference Interval Normal <150 mg/dL Borderline high 150 - 199 mg/dL High 200 - 499 mg/dL Very High > or = 500 mg/dL LAB L501.6400 mg/dL Normal HDL 55 Result Comment: The drugs N-Acetylcysteine and Metamizole may falsely depress this assay. Reference Range HDL <40 mg/dL Low HDL Cholesterol HDL >or= 60 mg/dL High HDL Cholesterol LAB L501.6500 0-130 mg/dL Normal LDL 93 LAB L501.6600 5-40 mg/dL High VLDL 41 Performed By: #### L500.4050, L500.4100, L501.9520 #### [facility] [address] [facility] [place], [address] THYROID STIM HORMONE Collected: 04/27/2017 Status: F Source: [place] (TSH) 12:51 PM [facility] TYPE CODE TESTS RESULT OUT OF RANGE REFERENCE UNITS LAB L501.9520 0.358-3.74 uIU/mL Normal TSH 0.77 Performed By: #### L500.4050, L500.4100, L501.9520 #### [facility] [address] [place], [address] EMERGENCY DEPARTMENT Observed: 04/26/2017 Status: F Source: [place] SUMMARY 5:05 PM [facility] Medical Records Department [address] [place] [address] Emergency Department Summary 04/26/17 0941 MR#: [id number] Acct: [id number] Name: NIKKI VIZCARRA Rep #: [id number] : 1945 72 From: Corby Piper MD PCP: Salvador HATCH,Octaviano Logan Status: DEP ER - ER Visit Summary Date of Service: 04/26/17 Chief Complaint: Fall History of Present Illness: The patient is a [address] Franco. She reports that she was sitting on the toilet seat drying her legs when it shifted and she fell off this. She suffered a laceration to her left leg. She reports she has pain of the 7 out of 10 severity. Her tetanus is up-to-date. She also reports she hit her ahead. She denies loss of consciousness. No neck, back, shoulder, wrist, or hip pain. Patient reports that she is currently being treated for a UTI. States that she cannot take the vast majority of oral antibiotics and has been getting a shot of Rocephin IM daily and Dr. Franco's office. Physical Examination: Vitals: Stable. Afebrile. Neck: No vertebral tenderness. Full ROM without difficulty. Cleared by NEXUS criteria. Back: No vertebral tenderness. General: A AND O x 3. NAD. Cardiovascular exam: Regular rate and rhythm, no murmur, rub or gallop. Respiratory exam: Chest nontender. No crepitus. Clear to auscultation bilaterally. No wheezes or stridor. Abdominal exam: Soft, nontender, nondistended, normal bowel sounds. No pain in RUQ or LUQ specifically. No peritoneal signs. Extremity: 10 cm laceration to the proximal lateral portion of her left leg. Moderate tenderness palpation surrounding this. 2+ dorsalis pedis pulse. 2+ pitting edema of her lower extremities bilaterally.. Test Results: CT brain shows chronic changes. X-rays negative for fracture. Emergency Department Course and Treatment: Patient was treated with oxycodone for her pain. She had her wound anesthetized and repaired. She tolerated it well. She is given dose Rocephin IM. Treatment Plan: The patient was discussed with Dr. Franco. She will be discharged instructions to have her sutures removed in 10-14 days. Return to the emergency department for any worsening symptoms. Disposition: To home in improved and stable condition. Impression: 1. Fall. 2. Left leg laceration, 10 cm, repaired. 3. UTI. 3. Coagulopathy on Xarelto. Procedure note: Wound was cleansed with chlorhexidine soap. Anesthetized with 1% lidocaine without epinephrine. Copiously irrigated with normal saline. Wound was explored there is no foreign material present. It was closed with 11 simple interrupted 4-0 ethilon sutures. The patient tolerated it well. This note was generated with EnteGreat dictation software. It may contain incorrect words, spelling, and punctuation that were not noted in review of the chart prior to signing ED Disposition - Plan for ED Patient: Chief Complaint: Laceration Instructions: ED Laceration Ext Sutr Stap Tape Prescriptions: Oxycodone HCl/Acetaminophen [Percocet 5/325] 1 tablet PO Q6H PRN PRN 5 Days #20 tablet PRN Reason: Pain Docusate Sodium [Colace] 100 mg PO DAILY #20 capsule Referrals: Octaviano Franco Chi, MD [Primary Care Provider] - 10-14 Days suture removal What to do if you have Problems For any increased pain, shortness of breath, bleeding, nausea or vomiting, chest pain, or any unexpected problems, contact your Primary Care Provider. Call [facility] ([phone]) or report to the closest Emergency Room. Call 911 if necessary. 04/26/17 1705 <Electronically signed by Corby Piper MD> Date Corby Piper MD Cosigner Signature (If Indicated): Date CC: Octaviano Franco MD TIBIA AND FIBULA Observed: 04/26/2017 Status: F Source: [place] 2 VIEWS 9:41 AM [facility] Imaging Services [address] [place] [address] Tibia AND Fibula 2 Views MR#: [id number] Acct: [id number] Name: NIKKI VIZCARRA Rep #: [id number] : 1945 F 72 From: Milo Hughes MD PCP: Octaviano Franco MD, Chi Status: REG ER Study: Tibia AND Fibula 2 Views Date of Exam: 04/26/17 Exam# [id number] Ordering Dr: Corby Piper MD STUDY: X-RAY - LEFT TIBIA AND FIBULA REASON FOR EXAM: Female, 72 years old. Pain following injury. TECHNIQUE: view(s) of the tibia and fibula were obtained. COMPARISON: None. FINDINGS: Normal visualized tibia. Normal visualized fibula. Diffuse soft tissue swelling. RAD/Tibia AND Fibula 2 Views IMPRESSION: Diffuse soft tissue swelling. Electronically Signed: Milo Hughes MD at 10:56 EDT Tel [phone], Service support , CC: Corby Piper MD; Octaviano Franco MD Induction Machine Setter: Signed BRAIN/HEAD WITHOUT Observed: 04/26/2017 Status: F Source: [place] CONTRAST 9:41 AM [facility] Imaging Services [address] [place] [address] Brain/Head without Contrast MR#: [id number] Acct: [id number] Name: NIKKI VIZCARRA Rep #: [id number] : 1945 F 72 From: Milo Hughes MD PCP: Octaviano Franco MD, Chi Status: REG ER Study: Brain/Head without Contrast Date of Exam: 04/26/17 Exam# [id number] Ordering Dr: Croby Piper MD STUDY: CT BRAIN WITHOUT CONTRAST REASON FOR EXAM: Female, 72 years old. Laceration following a recent fall. RADIATION DOSAGE (If Supplied By Facility): CTDIvol = ( 44.99 ) mGy, DLP = ( 745.49 ) mGycm TECHNIQUE: Transaxial CT imaging of the brain was performed without administration of intravenous contrast material. Individualized dose optimization techniques were used for this CT. COMPARISON: Comparison is made with prior study dated September 10, 2015. FINDINGS: Soft tissue calcifications overlying the frontal bone. This is unchanged. Normal calvarium. There is moderate cerebral atrophy with widening of the extra- axial spaces and ventricular dilatation. There are areas of decreased attenuation within the white matter tracts of the supratentorial brain, consistent with microvascular disease changes. Normal basal ganglia and thalami. Normal brainstem. There is mild cerebellar atrophy. There is no intracranial hemorrhage. There are no findings of an acute ischemic infarction. Atherosclerotic calcification of the cavernous portions of the internal carotid arteries bilaterally. Normal visualized paranasal sinuses. CT/Brain/Head without Contrast IMPRESSION: Chronic involutional changes of the brain. Electronically Signed: Milo Hughes MD at 11:20 EDT Tel [phone], Service support , CC: Corby Piper MD; Octaviano Franco MD Induction Machine Setter: Signed LOWER EXT ARTERIAL Observed: 04/23/2017 Status: F Source: [place] STUDY 7:22 AM [facility] Cardiovascular Services [address] [facility] [address] 04/23/17 0718 MR#: [id number] Acct: [id number] Name: NIKKI VIZCARRA Rep #: [id number] : 1945 72 From: Jimmy Fermin MD Attending Dr: Bayron Dutton DPM Status: REG RCR Ordering Dr: Date: 04/23/17 Location: [facility] Sex: F C Admitted: Arterial Study - Arterial Study Arterial Study: This is a 72-year-old female with a history of hypertension, diabetes mellitus, and coronary artery disease. The patient presents with a chronic nonhealing wound to the left lower extremity. Suspecting the presence of atherosclerotic peripheral arterial occlusive disease, the patient was brought to the noninvasive vascular laboratory at this time for the purpose of bilateral noninvasive lower extremity arterial assessment. Doppler signal assessment was used to evaluate the pulses at ankle level bilaterally. The posterior tibial and dorsalis pedis pulses were triphasic bilaterally. Segmental limb pressures were obtained bilaterally. The right ankle pressure, as determined by posterior tibial pulse, was measured at 208 mmHg. The right ankle pressure, as determined by dorsalis pedis pulse, was measured at 173 mmHg. The right digital pressure was measured at 95 mmHg. The left ankle pressure, as determined by posterior tibial pulse, was measured at 201 mmHg. The left ankle pressure, as determined by dorsalis pedis pulse, was measured at 192 mmHg. The left digital pressure was measured at 99 mmHg. Pulse-volume recordings were obtained bilaterally and segmentally. Waveform amplitudes appeared to be satisfactory at all levels bilaterally, but for the left digital level, which was mildly diminished. Resting ankle-brachial indices were calculated bilaterally. The resting right ankle-brachial index was calculated to be 1.27. The resting left ankle-brachial index was calculated to be 1.23. Digital-brachial indices were calculated bilaterally. The right digital-brachial index was calculated to be 0.58. The left digital-brachial index was calculated to be 0.60. Impression: Based upon the findings of this resting noninvasive lower extremity arterial study, arterial perfusion appears to be normal to ankle level bilaterally. Triphasic waveforms were noted at ankle level bilaterally. Resting ankle-brachial indices were bilaterally normal. Digital-brachial indices are mildly diminished bilaterally, suggestive of mild, distal, small-vessel arterial occlusive disease bilaterally. Clinical correlation is advised. 04/23/17721 <Electronically signed by Jimmy Fermin MD> Date Jimmy Fermin MD CC: Octaviano Franco MD Date Dictated: 04/23/17717 Date Transcribed: 04/23/17717 Induction Machine Setter: ALFREDO Helton VENOUS DUPLEX LOWER Observed: 04/20/2017 Status: F Source: [place] EXTREMITY 7:59 PM [facility] Cardiovascular Services [address] [place] [address] Venous Duplex US - Phil Extrem 04/20/17 1010 MR#: [id number] Acct: [id number] Name: NIKKI VIZCARRA Rep #: [id number] : 1945 72 From: Jimmy Fermin MD Attending Dr: Bayron Dutton DPM Status: REG RCR Ordering Dr: Bayron Dutton DPM Date: 04/20/17 Location: CVS Sex: F C Admitted: Reason For Study: Non-healing wound RIGHT LEFT CFV is compressible, spontaneous, phasic, CFV is compressible, spontaneous, phasic, competent and demonstrates normal competent, and demonstrates normal augmentation. augmentation. FV is compressible, spontaneous, phasic, FV is compressible, spontaneous, phasic, competent and demonstrates normal competent and demonstrates normal augmentation. augmentation. POP V is compressible, spontaneous, phasic, POP V is compressible, spontaneous, phasic, competent and demonstrates normal competent and demonstrates normal augmentation. augmentation. T/P Trunk is compressible. T/P Trunk is compressible. PTV is compressible. PTV is compressible. RT PerV is compressible. LT PerV is compressible. SFJ is competent GSV absent GSV is competent SSV too small in caliber to assess. SSV is competent. Procedure Exam performed in department. A preliminary report was called and/or faxed to [facility]. Interpretation Summary Deep veins of the lower extremities are bilaterally patent and compressible segmentally. There is no evidence of deep vein thrombosis on either side. Valvular competence appears intact within the proximal deep venous systems bilaterally. The right sapheno- femoral junction is competent . The right greater saphenous vein appears segmentally competent. The left greater saphenous vein is absent. The right small saphenous vein is competent. The left small saphenous vein is too small to assess. Ordering Physician: Bayron Dutton Referring Physician: Octaviano Franco Chi Performed By: Uyen Mckenna RVT 04/20/171958 Date Jimmy Fermin MD CC: HOMERO Dutton; Octaviano Franco MD Date Dictated: 04/20/17 1010 Date Transcribed: 04/20/171958 Induction Machine Setter: Signed LUNG SCAN VENT/PERF Observed: 04/19/2017 Status: F Source: [place] 10:53 AM [facility] Imaging Services [address] [place], [place] [address] [address] Lung Scan Vent/Perf MR#: [id number] Acct: [id number] Name: NIKKI VIZCARRA Rep #: [id number] : 1945 F 72 From: Milo Hughes MD PCP: Octaviano Franco MD, Chi Status: REG CLI Study: Lung Scan Vent/Perf Date of Exam: 04/19/17 Exam# [id number] Ordering Dr: Octaviano Franco MD CLINICAL: Female, 72 years old. Shortness of breath. NUCLEAR VENTILATION/PERFUSION - LUNG TECHNIQUE: The patient was administered 5.5 mCi of Tc MAA followed by a perfusion lung scan. The patient was administered 49.8 mCi of Tc DTPA aerosol followed by a ventilation lung scan. Comparison made to prior chest radiograph dated . COMPARISON STUDIES : Comparison is made with prior chest radiograph done earlier in the day. FINDINGS: The pulmonary perfusion study demonstrates uniform perfusion throughout both lung gallegos. There are no demonstrated segmental or subsegmental perfusion defects The ventilation study demonstrates uniform ventilation throughout both lung gallegos. There are no segmental or subsegmental ventilation abnormalities. NM/Lung Scan Vent/Perf IMPRESSION: Normal 99m Tc MAA pulmonary perfusion Tc DTPA aerosol ventilation imaging survey, according to revised PIOPED interpretive criteria. Electronically Signed: Milo Hughes MD at 12:38 EDT Tel [phone], Service support , CC: Octaviano Franco MD Induction Machine Setter: Signed 12 LEAD ELECTROCARDIOGRAM Observed: 04/19/2017 Status: F Source: [place] 10:37 AM [facility] Cardiovascular Services [address] [place] [address] 12 Lead EKG 04/18/17 2103 MR#: [id number] Acct: [id number] Name: NIKKI VIZCARRA Rep #: [id number] : 1945 72 From: Erasto Stuart MD Attending Dr: Octaviano Franco MD, Chi Status: REG CLI Ordering Dr: Octaviano Franco MD Date: 04/18/17 Location: [facility] Sex: F C Admitted: Test Reason : SOB Blood Pressure : / mmHG Vent. Rate : 082 BPM Atrial Rate : 082 BPM P-R Int : 152 ms QRS Dur : 074 ms QT Int : 380 ms P-R-T Axes : -17 002 131 degrees QTc Int : 443 ms Normal sinus rhythm Marked ST abnormality, possible lateral subendocardial injury Abnormal ECG When compared with ECG of 15-APR-2017 15:14, T wave inversion less evident in Lateral leads Confirmed by ERASTO STUART ([id number]), editor magazine SHAHNAZ MARINA ([id number]) on 04/19/2017 10:36:39 AM Referred By: SALVADOR Confirmed By:ERASTO STUART 04/19/17 1036 Date Erasto Stuart MD CC: Octaviano Franco MD Signed CHEST PA AND LATERAL Observed: 04/19/2017 Status: F Source: [place] 10:35 AM [facility] Imaging Services [address] [place] [address] Chest PA and Lateral MR#: [id number] Acct: [id number] Name: NIKKI VIZCARRA Rep #: [id number] : 1945 F 72 From: Milo Hughes MD PCP: Octaviano Franco MD, Chi Status: REG CLI Study: Chest PA and Lateral Date of Exam: 04/19/17 Exam# [id number] Ordering Dr: Octaviano Franco MD STUDY: X-RAY CHEST REASON FOR EXAM: Female, 72 years old. Shortness of breath. TECHNIQUE: PA and lateral views of the chest. COMPARISON: Comparison is made with prior study dated April 18, 2017. FINDINGS: The lungs are clear and expanded. There is no demonstrated pleural abnormality. Sternal cerclage wires and vascular clips are present from a prior sternotomy and coronary artery bypass graft procedure (CABG). Normal mediastinum and alee. Normal visualized pulmonary arteries. There is atherosclerotic tortuosity of the aortic arch and descending thoracic aorta. There are diffuse degenerative changes of the visualized thoracic spine. Increased kyphosis. Normal visualized ribs, clavicles, and shoulders. There is no demonstrated abnormality of the visualized soft tissue structures of the upper abdomen. RAD/Chest PA and Lateral IMPRESSION: No acute abnormality is seen. Electronically Signed: Milo Hughes MD at 11:17 EDT Tel [phone], Service support , CC: Octaviano Franco MD Induction Machine Setter: Signed CHEST PA AND LATERAL Observed: 04/18/2017 Status: F Source: [place] 8:47 PM [facility] Imaging Services [address] [place] [address] Chest PA and Lateral MR#: [id number] Acct: [id number] Name: NIKKI VIZCARRA Rep #: [id number] : 1945 F 72 From: Lester Maurer MD PCP: Octaviano Franco MD, Chi Status: REG CLI Study: Chest PA and Lateral Date of Exam: 04/18/17 Exam# [id number] Ordering Dr: Octaviano Franco MD STUDY: X-RAY CHEST REASON FOR EXAM: Female, 72 years old. Dyspnea TECHNIQUE: PA and lateral views of the chest. COMPARISON: Previous study of 04/15/2017 FINDINGS: The lungs are clear and expanded. There is no demonstrated pleural abnormality. Normal size heart. Status post sternotomy changes are present. Normal mediastinum and alee. Normal visualized pulmonary arteries. There are calcified plaques of the aortic arch. There is demineralization of the osseous structures. There are diffuse degenerative changes of the thoracic spine. Normal visualized ribs, clavicles, and shoulders. There is no demonstrated abnormality of the visualized soft tissue structures of the upper abdomen. RAD/Chest PA and Lateral IMPRESSION: Status post sternotomy. Calcified plaques of the aortic arch. Generalized osteopenia. Diffuse degenerative changes of the thoracic spine. No acute cardiopulmonary disease process is seen. Chest findings are stable in the interval. Electronically Signed: Lester Maurer MD at 21:36 EDT , Service support , CC: Octaviano Franco MD Induction Machine Setter: Signed CBC W/DIFF, AUTOMATED Collected: 04/18/2017 Status: F Source: [place] 4:56 PM [facility] TYPE CODE TESTS RESULT OUT OF RANGE REFERENCE UNITS LAB L100.1000 4.4-11.0 K/mm3 High WBC 13.3 LAB L100.1200 4.2-5.4 M/mm3 Normal RBC 4.84 LAB L100.1300 12.0-15.0 g/dl Normal HGB 14.6 LAB L100.1400 37-47 % Normal HCT 44.9 LAB L100.1500 81-99 fL Normal MCV 92.8 LAB L100.1600 27.0-32.0 pg Normal MCH 30.2 LAB L100.1700 32-36 g/gl Normal MCHC 32.5 LAB L100.1810 11.6-14.6 % High RDW CV 16.5 LAB L100.1820 35.1-43.9 fl High RDW SD 54.6 LAB L100.1900 150-450 K/mm3 Normal PLT 178 LAB L100.2000 6.2-12.0 fl Normal MPV 11.2 LAB L100.2100 47-70 % High NEUT% 74.8 LAB L100.2200 19-41 % Low LY% 13.8 LAB L100.2300 0-10 % Normal MONO% 7.4 LAB L100.2400 0-5 % Normal EO% 2.5 LAB L100.2500 0-1 % Normal BASO% 0.2 LAB L100.2550 0.0-0.9 % High IM GRAN % 1.300 Result Comment: IG% - Immature Granulocytes (promyelocytes, myelocytes and metamyelocytes) > 1% indicates that a LEFT SHIFT is Present. LAB L100.2620 2.0-7.7 X10 3/uL High Absolute Neut 10.0 LAB L100.2720 0.83-4.51 X10 3/ul Normal Absolute Lymph 1.84 Performed By: #### L100.0100 #### [facility] [address] [place], [address] D-DIMER QUANTITATIVE Collected: 04/18/2017 Status: F Source: [place] (DVT/PE) 4:56 PM [facility] TYPE CODE TESTS RESULT OUT OF RANGE REFERENCE UNITS LAB L300.8000 0.27-0.49 FEU/ug/m High alert D-DIMER 0.57 QUANT Result Comment: D-Dimer ELEVATED (>0.49): Additional studies and clinical assessments are indicated to conclude diagnosis of: Deep Vein Thrombosis (DVT) or Pulmonary Embolism (PE) CRITICAL VALUE VERIFIED. CALLED TO DR FRANCO 04/18/17 7592 Penny Nava. RESULTS READ BACK BY SAME . Performed By: #### L300.8000 #### [facility] [address] [facility] [place], [address] BNP,B-TYPE NATRIURETIC Collected: 04/18/2017 Status: F Source: [place] PEPTIDE 4:56 PM [facility] TYPE CODE TESTS RESULT OUT OF RANGE REFERENCE UNITS LAB L503.6620 0-100 pg/mL Normal B-TYPE 62.1 HERON PEP Performed By: #### L503.6620 #### [facility] [address] [facility] [place], [address] COMPREHENSIVE METABOLIC Collected: 04/18/2017 Status: F Source: [place] PROFIL 4:56 PM [facility] Order Comment: 'TROP' Serial specimen #1, #2, #3, or #4: 1 TYPE CODE TESTS RESULT OUT OF RANGE REFERENCE UNITS LAB L501.0100 74-106 mg/dL Normal GLU 75 Result Comment: Please note revised GLUCOSE reference range effective 2017. LAB L501.1000 7-18 mg/dL High BUN 51 LAB L501.1100 0.55-1.02 mg/dL High CREAT,SERUM 1.67 Result Comment: The validity of the calculated GFR AND GFRAA in patients over 70 years has not been determined. Clinical correlation is essential. LAB L501.1110 >60 mL/min Low EST GFR 32 Result Comment: Non- GFR Calc LAB L501.1115 >60 mL/min Low EST GFR - AA 39 Result Comment: GFR Calc LAB L501.1300 10-20 RATIO High BUN/CRE 30.5 LAB L501.1500 6.4-8.2 g/dL T Normal PROT 6.5 LAB L501.1800 3.2-5.0 g/dL Normal ALB 3.3 LAB L501.1950 2.2-4.2 g/dL Normal GLOB 3.2 LAB L501.2000 0.9-2.4 RATIO Normal A/G 1.0 LAB L501.2200 8.5-10.1 mg/dL CA Normal 9.0 LAB L501.4100 15-37 U/L Normal AST 18 LAB L501.4305 45-117 U/L Normal ALK P 51 LAB L501.4405 13-56 U/L Normal ALT 34 Result Comment: Please note revised ALT reference range effective 2017. LAB L501.4600 0.20-1.00 mg/dL Normal T BILI 0.70 LAB L501.5300 136-145 mmol/L Normal NA 140 LAB L501.5600 3.5-5.1 mmol/L High K 5.5 LAB L501.5900 98-107 mmol/L Normal CL 106 LAB L501.6100 21.0-32.0 mmol/L Normal CO2 23.0 LAB L501.6200 5-15 Normal GAP 11 Performed By: #### L500.4050, L501.3620, L501.4010, L501.9520 #### [facility] [address] [place], [place], [address] CPK TOTAL, CREATINE Collected: 04/18/2017 Status: F Source: [place] KINASE 4:56 PM [facility] Order Comment: 'TROP' Serial specimen #1, #2, #3, or #4: 1 TYPE CODE TESTS RESULT OUT OF RANGE REFERENCE UNITS LAB L501.3620 26-192 U/L Normal CPK TOTAL 70 Performed By: #### L500.4050, L501.3620, L501.4010, L501.9520 #### [facility] [address] [place], [address] TROPONIN-I Collected: 04/18/2017 Status: F Source: [place] 4:56 PM [facility] Order Comment: 'TROP' Serial specimen #1, #2, #3, or #4: 1 TYPE CODE TESTS RESULT OUT OF RANGE REFERENCE UNITS LAB L501.4010 <0.06 ng/mL Normal < 0.02 TROPONIN-I Result Comment: TROPONIN-I EXPECTED VALUES <0.05 NEGATIVE 0.06 - 0.59 AT RISK OF HI > OR = 0.60 SUGGEST HI Performed By: #### L500.4050, L501.3620, L501.4010, L501.9520 #### [facility] [address] [place], [address] THYROID STIM HORMONE Collected: 04/18/2017 Status: F Source: [place] (TSH) 4:56 PM [facility] Order Comment: 'TROP' Serial specimen #1, #2, #3, or #4: 1 TYPE CODE TESTS RESULT OUT OF RANGE REFERENCE UNITS LAB L501.9520 0.358-3.74 uIU/mL Normal TSH 0.75 Performed By: #### L500.4050, L501.3620, L501.4010, L501.9520 #### [facility] [address] [place], [address] 12 LEAD ELECTROCARDIOGRAM Observed: 04/18/2017 Status: F Source: [place] 4:09 PM [facility] Cardiovascular Services [address] [place] [address] 12 Lead EKG 04/15/17 1514 MR#: [id number] Acct: [id number] Name: NIKKI VIZCARRA Rep #: [id number] : 1945 72 From: Kurtis Barajas MD Attending Dr: Status: DEP ER Ordering Dr: Gonzalo Beltrán MD Date: 04/15/17 Location: ED Sex: F C Admitted: Test Reason : SOB Blood Pressure : / mmHG Vent. Rate : 069 BPM Atrial Rate : 069 BPM P-R Int : 148 ms QRS Dur : 074 ms QT Int : 410 ms P-R-T Axes : 020 005 131 degrees QTc Int : 439 ms Normal sinus rhythm Left ventricular hypertrophy with repolarization abnormality Abnormal ECG Confirmed by KURTIS BARAJAS MD ([id number]), editor magazine SHAHNAZ MARINA ([id number]) on 04/18/2017 4:09:03 PM Referred By: Confirmed By:KURTIS BARAJAS MD 04/18/17 1609 Date Kurtis Barajas MD CC: Octaviano Franco MD; Gonzalo Beltrán MD Signed EMERGENCY DEPARTMENT Observed: 04/15/2017 Status: F Source: [place] SUMMARY 5:48 PM [facility] Medical Records Department [address] [place] [address] Emergency Department Summary 04/15/17 1516 MR#: [id number] Acct: [id number] Name: NIKKI VIZCARRA Rep #: [id number] : 1945 72 From: Gonzalo Beltrán MD PCP: Octaviano Franco MD, Chi Status: REG ER - ER Visit Summary Date of Service: 04/15/17 Chief Complaint: Increased urination with discomfort and shortness of breath History of Present Illness: The patient is a 72 F presents with shortness of breath for the past 2 days. The shortness breath has gotten worse. She does complain of mild dyspnea on exertion. Denies orthopnea PND. She does report increased urination. States she has got 25 times since had a 11 pound weight loss. She does complain of slight discomfort with urination. She has not increased her Lasix dose. She does complain of hot and cold. She denies fever or chills. She denies any visual, ocular or auditory symptoms. She denies chest pain, palpitations or heart racing. She denies cough. She denies abdominal pain, nausea, vomiting or diarrhea. She denies constipation. Denies black or maroon stool. She denies myalgias arthralgias. She does complain of generalized weakness without paresthesia, anesthesia or motor weakness. She denies headache. She denies bruising easily even though she is on Xarelto. He is on Xarelto for proximal A. fib. And there is a remote history of DVT many years ago. She has no allergic type reactions or history of. Physical Examination: Patient is obese with a BMI of 41.7. Vital signs remarkable blood pressure 156/75. Head is atraumatic normocephalic. Pupils are equal round reactive. Extraocular muscles are intact. TMs are pearly white with landmarks noted. Nares patent with no drainage. Posterior pharynx without erythema or exudate. Uvula is midline. There is no dysphonia or dysphasia. Trachea is midline. There is no stridor with auscultation of the neck. Heart is regular without murmur, gallop or rub. S1 and S2 are normal. Lungs are clear to auscultation with good movement of air bilaterally. There is soft nontender. Bowel sounds are present but diminished. He does have 2-3+ pitting edema of the feet and both legs. There is a dressing secondary to leg ulcer distal left leg. She is alert and oriented with a nonfocal neurologic exam. Test Results: White count is 14.3 thousand with 80 segs no bands. Electrode panel is remarkable for BUN and creatinine of 45 1.45. Urine is positive for leukoesterase, nitrites and blood. Micro reveals pyuria with 10-25 RBCs 5 epithelial cells and 1+ bacteria. Emergency Department Course and Treatment: I await patient's symptoms of dyspnea will obtain EKG, chest x-ray appropriate blood work. Need to rule out cardiac versus pulmonary etiology. Since she is on Xarelto is not tachycardic or tachypneic doubt pulmonary embolus. Also will obtain UA to assess her complaint of frequency with discomfort. Likewise were obtained since she reports 11 pound weight loss and urinating 25 times a last 36-48 hours. Treatment Plan: Urine culture was sent since patient has numerous allergies. She did receive a dose of Rocephin in the emergency department and was discharged prescription for Macrobid based on her numerous allergies. Disposition: Discharge to home with appropriate home-going instructions for UTI Impression: 1. Urinary tract infection, acute 2. Prerenal azotemia with end-stage renal disease, mild 3. History of type 2 diabetes 4. History of hypertension 5. History of paroxysmal atrial fib on Coumadin This note was generated with [employer]te[employer] dictation software. It may contain incorrect words, spelling, and punctuation that were not noted in review of the chart prior to signing ED Disposition - Plan for ED Patient: Disposition: Home or Assisted Living Chief Complaint: Shortness of Breath Instructions: ED UTI Cystitis Female Prescriptions: Nitrofurantoin Macrocrystals [Macrobid] 100 mg PO Q12 #14 cap Referrals: Octaviano Franco Chi, MD [Primary Care Provider] - 3-5 Days if not improving What to do if you have Problems For any increased pain, shortness of breath, bleeding, nausea or vomiting, chest pain, or any unexpected problems, contact your Primary Care Provider. Call [facility] ([phone]) or report to the closest Emergency Room. Call 911 if necessary. 04/15/17 1748 <Electronically signed by Gonzalo Beltrán MD> Date Gonzalo Beltrán MD Cosigner Signature (If Indicated): Date CC: Octaviano Franco MD URINALYSIS, COMPLETE Collected: 04/15/2017 Status: F Source: [place] 4:15 PM [facility] Order Comment: Order Date: 04/15/17 How was Urine Obtained? CLEAN CATCH TYPE CODE TESTS RESULT OUT OF RANGE REFERENCE UNITS LAB L400.3000 Yellow COLOR Normal Yellow LAB L400.3050 Clear Normal CLARITY Cloudy LAB L400.3200 Normal mg/dl Normal GLUCOSE, UR Normal LAB L400.3300 Negative mg/dL Normal BILIRUBIN URINE Negative LAB L400.3400 Negative mg/dl Normal KETONE UR Negative LAB L400.3465 1.002-1.030 Normal SP.GR. DIPSTX 1.010 LAB L400.3550 5.0 - 8.0 pH UR Normal 7.0 LAB L400.3600 Negative mg/dl High PROT 15 DIPSTX LAB L400.3700 Normal mg/dl Normal UROBILI Normal LAB L400.3750 Negative High NITRITE UR Positive LAB L400.3780 Negative /ul High 25 OCCULT BLOOD-UR LAB L400.3800 Negative /ul High LEUK ESTERASE 500 LAB L400.4050 0-5 /hpf WBC Normal 10-25 SEEN LAB L400.4100 0-5 /hpf 0 Normal RBC-UA SEEN LAB L400.4150 5-10 /hpf SQUAM Normal EPI 5-10 SEEN LAB L400.4300 None Seen /hpf 1+ Normal BACTERIA LAB L400.4350 <or=2+ /hpf 0 Normal MUCUS, URINE SEEN LAB L400.4250 0-5 /hpf RENAL Normal EPI 0-5 SEEN Performed By: #### L400.0001 #### [facility] [address] [facility] [place], [place], [address] Observed: 04/15/2017 Status: F Source: [place] CULTURE, URINE 4:15 PM [facility] Urine Culture ORGANISM 1: Presumptive E. coli [place] Count >100,000 Presumptive E. coli: REACTION Amoxacillin/Clavulanic Acid $ 8 S Ampicillin $ >=32 R Ampicillin/Sulbactam $ >=32 R Cefazolin $ <=4 S Cefepime $ <=1 S Ceftriaxone $ <=1 S Ciprofloxacin $ >=4 R ESBL - Ertapenim $$$ <=0.5 S Gentamicin $ <=1 S Imipenem *NF <=0.25 S Levofloxacin $ >=8 R Nitrofurantoin $ <=16 S Piperacillin/Tazobactam $$ <=4 S Tobramycin $ <=1 S Trimethoprim/Sulfametho $ <=20 S (NF) indicates non-formulary drug at [facility]. Approval by Infectious Disease Specialist required before non-formulary drugs may be ordered and/or dispensed. Performed By: #### M100.0650 #### [facility] [address] [facility] [place], [place], [address] CBC W/DIFF, AUTOMATED Collected: 04/15/2017 Status: F Source: [place] 3:23 PM [facility] TYPE CODE TESTS RESULT OUT OF RANGE REFERENCE UNITS LAB L100.1000 4.4-11.0 K/mm3 High WBC 14.3 LAB L100.1200 4.2-5.4 M/mm3 Normal RBC 4.79 LAB L100.1300 12.0-15.0 g/dl Normal HGB 14.2 LAB L100.1400 37-47 % Normal HCT 43.6 LAB L100.1500 81-99 fL Normal MCV 91.0 LAB L100.1600 27.0-32.0 pg Normal MCH 29.6 LAB L100.1700 32-36 g/gl Normal MCHC 32.6 LAB L100.1810 11.6-14.6 % High RDW CV 16.8 LAB L100.1820 35.1-43.9 fl High RDW SD 54.7 LAB L100.1900 150-450 K/mm3 Normal PLT 243 LAB L100.2000 6.2-12.0 fl Normal MPV 10.0 LAB L100.2100 47-70 % High NEUT% 79.4 LAB L100.2200 19-41 % Low LY% 11.5 LAB L100.2300 0-10 % Normal MONO% 7.4 LAB L100.2400 0-5 % Normal EO% 0.7 LAB L100.2500 0-1 % Normal BASO% 0.2 LAB L100.2550 0.0-0.9 % Normal IM GRAN % 0.800 Result Comment: IG% - Immature Granulocytes (promyelocytes, myelocytes and metamyelocytes) > 1% indicates that a LEFT SHIFT is Present. LAB L100.2620 2.0-7.7 X10 3/uL High Absolute Neut 11.3 LAB L100.2720 0.83-4.51 X10 3/ul Normal Absolute Lymph 1.64 Performed By: #### L100.0100 #### [facility] [address] [place], [place], [address] BASIC METABOLIC Collected: 04/15/2017 Status: F Source: [place] PROFILE ([facility]) 3:23 PM [facility] Order Comment: 'TROP' Serial specimen #1, #2, #3, or #4: 1 TYPE CODE TESTS RESULT OUT OF RANGE REFERENCE UNITS LAB L501.0100 74-106 mg/dL High GLU 145 Result Comment: Fasting Glucose result greater than or equal to 126 mg/dL suggests DIABETES MELLITUS per A.D.A. criteria. Please note revised GLUCOSE reference range effective 2017. LAB L501.1000 7-18 mg/dL High BUN 45 LAB L501.1100 0.55-1.02 mg/dL High CREAT,SERUM 1.54 Result Comment: The validity of the calculated GFR AND GFRAA in patients over 70 years has not been determined. Clinical correlation is essential. LAB L501.1110 >60 mL/min Low EST GFR 35 Result Comment: Non- GFR Calc LAB L501.1115 >60 mL/min Low EST GFR - AA 42 Result Comment: GFR Calc LAB L501.1255 ml/min Normal Estimated CRCL 23.37 LAB L501.1300 10-20 RATIO High BUN/CRE 29.2 LAB L501.2200 8.5-10 mg/dL Normal .1 CA 9.1 LAB L501.5300 136-14 mmol/L Normal 5 NA 142 LAB L501.5600 3.5-5. mmol/L Normal 1 K 4.9 LAB L501.5900 98-107 mmol/L High CL 110 LAB L501.6100 21.0-3 mmol/L Normal 2.0 CO2 24.0 LAB L501.6200 5-15 Normal GAP 8 Performed By: #### L500.2500, L501.4010 #### [facility] [address] [place] [address]. [place], [place], [address] TROPONIN-I Collected: 04/15/2017 Status: F Source: [place] 3:23 PM [facility] REPOSIT[facility] Order Comment: 'TROP' Serial specimen #1, #2, #3, or #4: 1 TYPE CODE TESTS RESULT OUT OF RANGE REFERENCE UNITS LAB L501.4010 <0.06 ng/mL Normal < 0.02 TROPONIN-I Result Comment: TROPONIN-I EXPECTED VALUES <0.05 NEGATIVE 0.06 - 0.59 AT RISK OF HI > OR = 0.60 SUGGEST HI Performed By: #### L500.2500, L501.4010 #### [facility] [address] [facility]. [place], [place], [id number] CHEST PA AND LATERAL Observed: 04/15/2017 Status: F Source: [place] 3:06 PM [facility] REPOSITORY [facility] Imaging Services [address] [place] [address] Chest PA and Lateral MR#: [id number] Acct: [id number] Name: NIKKI VIZCARRA Rep #: [id number] : 1945 F 72 From: Andreas Polanco MD PCP: Octaviano Franco MD, Chi Status: REG ER Study: Chest PA and Lateral Date of Exam: 04/15/17 Exam# [id number] Ordering Dr: Gonzalo Beltrán MD STUDY: X-RAY CHEST REASON FOR EXAM: Female, 72 years old. Shortness of breath TECHNIQUE: Frontal view of the chest COMPARISON: 09/01/2016 FINDINGS: The lungs are clear. There are no pleural effusions. There is no pneumothorax. The heart is normal in size. The patient is status post sternotomy. The visualized osseous structures are within normal limits. RAD/Chest PA and Lateral IMPRESSION: No acute thoracic pathology. 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 WOUND CTR HISTORY Observed: 04/05/2017 Status: F Source: [place] AND PHYSICAL 1:48 PM [facility] REPOSITORY [facility] [address] [place] [address] Wound Ctr History AND Physical 04/05/17 1318 MR#: [id number] Acct: [id number] Name: NIKKI VIZCARRA Rep #: [id number] : 1945 72 From: Bayron Dutton DPM PCP: Octaviano Franco MD, Chi Status: REG RCR Y Location: WC (1) Ulcer of left lower extremity with fat layer exposed Status: Acute Current Visit: Yes Code(s): L97.922 - Non- pressure chronic ulcer of unspecified part of left lower leg with fat layer exposed (2) PVD (peripheral vascular disease) Status: Suspected Current Visit: Yes Code(s): I73.9 - Peripheral vascular disease, unspecified (3) Malnutrition Status: Acute Current Visit: Yes Code(s): E46 - Unspecified protein-calorie malnutrition (4) Controlled diabetes mellitus Status: Acute Current Visit: Yes Code(s): E11.9 - Type 2 diabetes mellitus without complications (5) Edema, lower extremity Status: Acute Current Visit: Yes Code(s): R60.0 - Localized edema History of Present Illness Date of Service: 04/05/17 Chief Complaint: Left anterior lower leg ulceration that will not heal. History of Wound: This 72 year old female has significant history of diabetes and multiple sclerosis, bilateral traumatic leg wounds, and other comorbidities. She presents to office today after being referred by Dr. Franco. Per his note, the patient had finished up a prescription for keflex and is on rocephin. Patient states that she recently got a new bed. She says since she is short she had to get a stool in order to get onto her bed. She fell on the stool and got an ulcer on the left anterior leg. She says this happed close to two weeks ago and has not seen much of an improvment since. She has been dressing the ulcer site with bacitracin. She denies any purulence, malodor, redness around the ulcer. She also denies any feelings of nausea, vomiting, fever, or chills currently. Past Medical History Past Medical History: Chronic Problems S/P PTCA (percutaneous transluminal coronary angioplasty) (Chronic) S/P CABG (coronary artery bypass graft) (Chronic) Paroxysmal atrial fibrillation (Chronic) CAD (coronary artery disease) (Chronic) DM2 (diabetes mellitus, type 2) (Chronic) Dyslipidemia (Chronic) Morbid obesity (Chronic) Multiple sclerosis (Chronic) Trigeminal neuralgia (Chronic) Carcinoma of lip (Chronic) Hyperlipidemia (Chronic) Hypertension (Chronic) Contusion of left lower leg (Chronic) Infected traumatic hematoma wound left anterior leg Diabetic ulcer of both lower extremities (Chronic) Diabetic ulcer of lower extremity (Chronic) Ulcer of left lower leg (Chronic) Ulcer of right leg (Chronic) Ulcer of left lower extremity (Chronic) Ulcer of left cabrera (Chronic) Venous insufficiency of both lower extremities (Chronic) Surgical History: angioplasty, appendectomy, cholecystectomy, coronary bypass surgery, hysterectomy, tonsillectomy, - - R ankle surgery with hardware. placement of stents (cardiac or lower extremity. patient is unsure). excision upper lip carcinoma. Incision and drainage and excisional debridement infected traumatic open hematoma wound right anterior leg (90 cm2) and incision and drainage and excisional debridement infected traumatic open hematoma wound left anterior leg (72 cm2) - 12/29/14. Allergies/Adverse Reactions: Allergies ciprofloxacin [From Cipro] Allergy (Verified 09/07/16 15:33) Hives ciprofloxacin HCl [From Cipro] Allergy (Verified 09/07/16 15:33) Hives Latex, Natural Rubber Allergy (Verified 09/07/16 15:33) Rash Penicillins [PCN] Allergy (Verified 09/07/16 15:33) Hives Home Medications: Ambulatory Orders Medication Instructions Recorded Gabapentin [Neurontin] 800 mg PO TIDCM 09/01/16 Metoprolol Tartrate [Lopressor 50 mg PO BID 09/01/16 - Family History Maternal Heart Disease, Hypertension Paternal Heart Disease, Hypertension, - - skin cancer. Sibling Diabetes Lives: With Family - Sister Smoking Status: Former smoker Review of Systems Constitutional: Denies: Chills, Fever, Weight Change Cardiovascular: Denies: Chest Pain, Palpitations Respiratory: Denies: Cough, Shortness of Breath Musculoskeletal: Reports: Leg Pain - Left anterior lower leg Skin: Reports: Wounds - Ulcer to the anterior lower left leg Neurological: Denies: Numbness, Tingling - Physical Exam Vital Signs Temp Pulse Resp BP 96.0 F L 59 L 18 150/73 H 04/05/17 10:32 04/05/17 10:32 04/05/17 10:32 04/05/17 10:32 General: Alert, Oriented x3, Cooperative, No apparent distress Extremities: Capillary Refill Less than 3 Seconds, No Calf Tenderness - Negative Sunita and Abraham sign, Edema - Bilateral lower extremity edema, Peripheral Pulses Normal - DP pulses palpable and PT pulses nonpalpable due to marti-malleolar pitting edema Skin: Ulcer/ Wound - Ulcer appreciated to the anterior left lower leg. Ulcer measurements are noted below. Ulcer base is a mixture of granular tissue, adherent slough, fibrin, and hyperkeratotic rim. Slight serous drainage appreciated, however no purulence was noted. No increase in warmth, no probing, no tracking, no undermining, and no surrounding cellulitis appreciated at this time. No other signs of local infection appreciated. Wound Measurements and Assessment WC - Nurse 1 - General Ulcer Measurement Start: 04/05/17 10:32 Freq: Status: Active Protocol: Activity Type Activity Date Activity User E-Sign Co-Sign Detail Recorded Client Recorded Date Recorded By Document 04/05/17 10:32 TM [id number] 04/05/17 10:42 TM Wound Center Nurse 1 [Ulcer Assessment] #1,left lower medial lef WC - Nurse 2 - General Ulcer CM Notes Start: 04/05/17 10:32 Freq: Status: Active Protocol: Activity Type Activity Date Activity User E-Sign Co-Sign Detail Recorded Client Recorded Date Recorded By Document 04/05/17 10:33 MW [id number] 04/05/17 10:44 MW Wound Center Nurse 2 Musculoskeletal: Tenderness - Tenderness appreciated to palpation of the ulcer. Neurological: Sensory exam intact to light touch and pain Psych/Mental Status: Normal Affect, Appropriate Debridement Note Post-Debridement Measurements/Treatment WC - Nurse 2 - General Ulcer CM Notes Start: 04/05/17 10:32 Freq: Status: Active Protocol: Activity Type Activity Date Activity User E-Sign Co-Sign Detail Recorded Client Recorded Date Recorded By Document 04/05/17 10:33 MW [id number] 04/05/17 10:44 MW Wound Center Nurse 2 #3 LEFT MEDIAL LE (TRAUMA) -Time 10:35 -Correct Patient Yes -Correct Side, Site, Position Yes Wound debrided: Left anterior lower leg Laterality: Left Wound Grade/Stage: 2 Type of Debridement: Excisional debridement Anesthesia Used: 4% Lidocaine Solution Depth: in the subcutaneous layer Percentage of wound debrided: 100 Instrument Used: 3mm curette Tissue Removed: Adherent slough, fibrin, hyperkeratotic rim Severity: Fat Layer Exposed Amount of bleeding with debridement: Mild Bleeding Controlled with: Pressure Patient tolerated procedure well Assessment/Plan Active Problems Ulcer of left lower extremity with fat layer exposed (Acute) Malnutrition (Acute) Controlled diabetes mellitus (Acute) Edema, lower extremity (Acute) Assessment: Ulcer to left lower leg with fat layer exposed. DM II. Lower extremity edema Plan: Initial patient examination evaluation was performed. The ulcer to the left anterior lower leg was debrided as noted in the clinical panel. Post debridement, the ulcer site was carefully cleansed and then dressed with Aquacel Ag, dry sterile dressing, and tubigrip. This is to be changed on a daily basis in this manner. She is to try and keep all pressure off of the area otherwise. No antibiotics were prescribed today due to there being no apparent signs of local infection. Baseline lab work was also ordered today including a CBC with differential, CMP, prealbumin, ESR, hemoglobin A1c. LEAS and bilateral venous Doppler exams were ordered. These results will be reviewed at the follow- up visit. Dressing supplies were ordered for the patient. I recommended a high-protein diet for this patient to supplement wound healing. Patient was educated on all signs and symptoms of local and systemic infection, and was instructed to go to the ER immediately should she notice any. All other questions were answered to the patient's satisfaction. The patient will follow-up in clinic in 1 week to check on progress, or sooner if needed. 04/05/17 1348 <Electronically signed by Bayron Dutton DPM> Date Bayron Dutton DPM CC: Signed CBC W/DIFF, AUTOMATED Collected: 04/05/2017 Status: F Source: [place] 11:20 AM [facility] REPOSITORY Order Comment: FAX RESULTS TO [id number] TYPE CODE TESTS RESULT OUT OF RANGE REFERENCE UNITS LAB L100.1000 4.4-11.0 K/mm3 High WBC 12.8 LAB L100.1200 4.2-5.4 M/mm3 Normal RBC 4.63 LAB L100.1300 12.0-15.0 g/dl Normal HGB 13.5 LAB L100.1400 37-47 % Normal HCT 42.9 LAB L100.1500 81-99 fL Normal MCV 92.7 LAB L100.1600 27.0-32.0 pg Normal MCH 29.2 LAB L100.1700 32-36 g/gl Low MCHC 31.5 LAB L100.1810 11.6-14.6 % High RDW CV 17.1 LAB L100.1820 35.1-43.9 fl High RDW SD 57.9 LAB L100.1900 150-450 K/mm3 Normal PLT 251 LAB L100.2000 6.2-12.0 fl Normal MPV 10.7 LAB L100.2100 47-70 % High NEUT% 79.2 LAB L100.2200 19-41 % Low LY% 10.8 LAB L100.2300 0-10 % Normal MONO% 8.4 LAB L100.2400 0-5 % Normal EO% 0.8 LAB L100.2500 0-1 % Normal BASO% 0.2 LAB L100.2550 0.0-0.9 % Normal IM GRAN % 0.600 Result Comment: IG% - Immature Granulocytes (promyelocytes, myelocytes and metamyelocytes) > 1% indicates that a LEFT SHIFT is Present. LAB L100.2620 2.0-7.7 X10 3/uL High Absolute Neut 10.1 LAB L100.2720 0.83-4.51 X10 3/ul Normal Absolute Lymph 1.38 Performed By: #### L100.0100, L101.9900 #### [facility] [address] [facility] [place], [place], [id number] ERYTHROCYTE SED RATE Collected: 04/05/2017 Status: F Source: [place] 11:20 AM [facility] REPOSIT[facility] Order Comment: FAX RESULTS TO [id number] TYPE CODE TESTS RESULT OUT OF RANGE REFERENCE UNITS LAB L102.0000 0-30 mm/hr Normal SED RATE 18 Performed By: #### L100.0100, L101.9900 #### [facility] [address] [facility] [facility] [place], [place], [id number] HEMOGLOBIN A1C Collected: 04/05/2017 Status: F Source: [place] 11:20 AM [facility] REPOS[facility] Order Comment: FAX RESULTS TO [id number] TYPE CODE TESTS RESULT OUT OF RANGE REFERENCE UNITS LAB L501.9985 4.2-6.3 % Normal HGB A1C 6.2 Performed By: #### L501.9985 #### [facility] [address] [place], [place], [address] COMPREHENSIVE METABOLIC Collected: 04/05/2017 Status: F [facility] Order Comment: FAX RESULTS TO [id number] TYPE CODE TESTS RESULT OUT OF RANGE REFERENCE UNITS LAB L501.0100 74-106 mg/dL Low GLU 68 Result Comment: Please note revised GLUCOSE reference range effective 2017. LAB L501.1000 7-18 mg/dL High BUN 47 LAB L501.1100 0.55-1.02 mg/dL High CREAT,SERUM 1.50 Result Comment: The validity of the calculated GFR AND GFRAA in patients over 70 years has not been determined. Clinical correlation is essential. LAB L501.1110 >60 mL/min Low EST GFR 36 Result Comment: Non- GFR Calc LAB L501.1115 >60 mL/min Low EST GFR - AA 44 Result Comment: GFR Calc LAB L501.1300 10-20 RATIO High BUN/CRE 31.3 LAB L501.1500 6.4-8.2 g/dL T Normal PROT 6.4 LAB L501.1800 3.2-5.0 g/dL Normal ALB 3.2 LAB L501.1950 2.2-4.2 g/dL Normal GLOB 3.2 LAB L501.2000 0.9-2.4 RATIO Normal A/G 1.0 LAB L501.2200 8.5-10.1 mg/dL CA Normal 9.5 LAB L501.4100 15-37 U/L Low AST 14 LAB L501.4305 45-117 U/L Normal ALK P 53 LAB L501.4405 13-56 U/L Normal ALT 32 Result Comment: Please note revised ALT reference range effective 2017. LAB L501.4600 0.20-1.00 mg/dL Normal T BILI 0.70 LAB L501.5300 136-145 mmol/L Normal NA 138 LAB L501.5600 3.5-5.1 mmol/L High K 5.5 LAB L501.5900 98-107 mmol/L Normal CL 103 LAB L501.6100 21.0-32.0 mmol/L Normal CO2 26.0 LAB L501.6200 5-15 Normal GAP 9 Performed By: #### L500.4050, L506.0500 #### [facility] [place], [address] PREALBUMIN Collected: 04/05/2017 Status: F Source: [place] 11:20 AM [facility] REPOS[facility] Order Comment: FAX RESULTS TO [id number] TYPE CODE TESTS RESULT OUT OF RANGE REFERENCE UNITS LAB L506.0500 20.0-40.0 mg/dL Normal PREALBUMIN 34.5 Performed By: #### L500.4050, L506.0500 #### [facility] [address] [place], [address] Observed: 03/16/2017 Status: F Source: [place] CDIFF (MOLECULAR) 2:00 AM [facility] REPOS[facility] Cdiff-Molecular Normal Reference Range = Negative C. Diff DNA Negative- No toxigenic C. Diff DNA Detected NAAT METHOD Testing was performed using nucleic acid amplification Performed By: #### M100.6796 #### [facility] [address] [place], [address] ABD INC DECUB Observed: 03/15/2017 Status: F Source: [place] AND/OR ERECT 6:52 PM [facility] REPOSITORY [facility] Imaging Services [address] [place] [address] Abd Inc Decub and/or Erect MR#: [id number] Acct: [id number] Name: NIKKI VIZCARRA Rep #: [id number] : 1945 F 72 From: Sree Henriquez MD PCP: Octaviano Franco MD, Chi Status: REG CLI Study: Abd Inc Decub and/or Erect Date of Exam: 03/15/17 Exam# [id number] Ordering Dr: Octaviano Franco MD STUDY: X-RAY - ABDOMEN/PELVIS REASON FOR EXAM: Female, 72 years old. Diarrhea and vomiting TECHNIQUE: Single AP view of the abdomen / pelvis. COMPARISON: None. FINDINGS: Normal visualized lung bases. There are a few air-fluid levels noted in the small and large bowel. There is no demonstrated free abdominal air. The visualized liver, spleen and kidneys are grossly normal in size and morphology. 1 cm calcification right upper quadrant. Normal soft tissue structures. Normal visualized osseous structures. RAD/Abd Inc Decub and/or Erect IMPRESSION: Gallstone or urolith mild ileus. 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 Submit a new specimen if indicated. Performed By: #### M100.0650 #### [facility] [place], [address] CBC W/DIFF, AUTOMATED Collected: 03/15/2017 Status: F Source: [place] 2:47 PM [facility] REPOSIT[facility] TYPE CODE TESTS RESULT OUT OF RANGE REFERENCE UNITS LAB L100.1000 4.4-11.0 K/mm3 High WBC 12.3 LAB L100.1200 4.2-5.4 M/mm3 Normal RBC 4.80 LAB L100.1300 12.0-15.0 g/dl Normal HGB 14.1 LAB L100.1400 37-47 % Normal HCT 44.6 LAB L100.1500 81-99 fL Normal MCV 92.9 LAB L100.1600 27.0-32.0 pg Normal MCH 29.4 LAB L100.1700 32-36 g/gl Low MCHC 31.6 LAB L100.1810 11.6-14.6 % High RDW CV 18.1 LAB L100.1820 35.1-43.9 fl High RDW SD 59.9 LAB L100.1900 150-450 K/mm3 Normal PLT 295 LAB L100.2000 6.2-12.0 fl Normal MPV 10.5 LAB L100.2100 47-70 % High NEUT% 77.0 LAB L100.2200 19-41 % Low LY% 14.6 LAB L100.2300 0-10 % Normal MONO% 7.1 LAB L100.2400 0-5 % Normal EO% 0.7 LAB L100.2500 0-1 % Normal BASO% 0.2 LAB L100.2550 0.0-0.9 % Normal IM GRAN % 0.400 Result Comment: IG% - Immature Granulocytes (promyelocytes, myelocytes and metamyelocytes) > 1% indicates that a LEFT SHIFT is Present. LAB L100.2620 2.0-7.7 X10 3/uL High Absolute Neut 9.5 LAB L100.2720 0.83-4.51 X10 3/ul Normal Absolute Lymph 1.80 Performed By: #### L100.0100 #### [facility] [address] [place], [address] COMPREHENSIVE METABOLIC Collected: 03/15/2017 Status: F Source: [facility] 2:47 PM [facility] TYPE CODE TESTS RESULT OUT OF RANGE REFERENCE UNITS LAB L501.0100 74-106 mg/dL High GLU 118 Result Comment: Fasting Glucose result from 100 to 125 mg/dL suggests IMPAIRED HOMEOSTASIS per A.D.A. criteria. Please note revised GLUCOSE reference range effective 2017. LAB L501.1000 7-18 mg/dL High BUN 20 LAB L501.1100 0.55-1.02 mg/dL High CREAT,SERUM 1.52 Result Comment: The validity of the calculated GFR AND GFRAA in patients over 70 years has not been determined. Clinical correlation is essential. LAB L501.1110 >60 mL/min Low EST GFR 36 Result Comment: Non- GFR Calc LAB L501.1115 >60 mL/min Low EST GFR - AA 43 Result Comment: GFR Calc LAB L501.1300 10-20 RATIO Normal BUN/CRE 13.2 LAB L501.1500 6.4-8.2 g/dL T Normal PROT 7.1 LAB L501.1800 3.2-5.0 g/dL Normal ALB 3.4 LAB L501.1950 2.2-4.2 g/dL Normal GLOB 3.7 LAB L501.2000 0.9-2.4 RATIO Normal A/G 0.9 LAB L501.2200 8.5-10.1 mg/dL CA Normal 9.6 LAB L501.4100 15-37 U/L Normal AST 17 LAB L501.4305 45-117 U/L Normal ALK P 80 LAB L501.4405 13-56 U/L Normal ALT 32 Result Comment: Please note revised ALT reference range effective 2017. LAB L501.4600 0.20-1.00 mg/dL Normal T BILI 0.90 LAB L501.5300 136-145 mmol/L Normal NA 144 LAB L501.5600 3.5-5.1 mmol/L Normal K 4.3 LAB L501.5900 98-107 mmol/L High CL 111 LAB L501.6100 21.0-32.0 mmol/L Normal CO2 22.0 LAB L501.6200 5-15 Normal GAP 11 Performed By: #### L500.4050 #### [facility] [address] [place], [address] Observed: 03/05/2017 Status: F Source: [place] CULTURE, URINE 3:17 PM [facility] REPOS[facility] Urine Culture ORGANISM 1: Enterococcus faecium [place] Count 25,000-50,000 ORGANISM 2: Pseudomonas aeroginosa [place] Count 1000-10,000 Enterococcus faecium: REACTION Ampicillin $ >=32 R Benzylpenicillin NF >=64 R Ciprofloxacin $ >=8 R Gentamicin SYN-S S Levofloxacin $ >=8 R Linezolid $$$$ 2 S Nitrofurantoin $ 32 S Streptomycin $ SYN-S S Tetracycline NF >=16 R Vancomycin $ 1 S (NF) indicates non-formulary drug at [facility]. Approval by Infectious Disease Specialist required before non-formulary drugs may be ordered and/or dispensed. * CLSI guidelines does not recommend testing of cephalosporins. This interpretation is deduced from Beta-lactam/penicillin results. Pseudomonas aeroginosa: REACTION Cefepime $ <=1 S Ceftazidime *NF 4 S Ciprofloxacin $ <=0.25 S Gentamicin $ <=1 S Imipenem *NF 1 S Levofloxacin $ 1 S Piperacillin/Tazobactam $$ 8 S Tobramycin $ <=1 S (NF) indicates non-formulary drug at [facility]. Approval by Infectious Disease Specialist required before non-formulary drugs may be ordered and/or dispensed. Performed By: #### M100.0650 #### [facility] [address] [facility] [id number] Observed: 03/05/2017 Status: F Source: [place] CULTURE, WOUND 3:17 PM [facility] Gram Stain Gram Stain 3+ Red Blood Cells Rare White Blood Cells No organisms seen Wound Culture ORGANISM 1: Staphylococcus haemolyticus Amount Growth Rare Staphylococcus haemolyticus: REACTION Benzylpenicillin NF >=0.5 R Cefoxitin *NF + Clindamycin $$ >=8 R Inducable Clindamycin [place] - Erythromycin $ >=8 R Gentamicin $ <=0.5 S Levofloxacin $ 4 I Linezolid $$$$ 1 S Oxacillin NF >=4 R Tigecycline $$$$ <=0.12 S Rifampin $$ <=0.5 S Tetracycline NF <=1 S Vancomycin $ 1 S (NF) indicates non-formulary drug at [facility]. Approval by Infectious Disease Specialist required before non-formulary drugs may be ordered and/or dispensed. * CLSI guidelines does not recommend testing of cephalosporins. This interpretation is deduced from Beta-lactam/penicillin results. Performed By: #### M100.1400 #### [facility] [facility]. [facility] [address] Observed: 02/26/2017 Status: F Source: [place] CULTURE, URINE 2:00 PM [facility] REPOS[facility] Urine Culture ORGANISM 1: Pseudomonas aeroginosa [place] Count 25,000-50,000 Pseudomonas aeroginosa: REACTION Cefepime $ <=1 S Ceftazidime *NF 4 S Ciprofloxacin $ <=0.25 S Gentamicin $ <=1 S Imipenem *NF 1 S Levofloxacin $ 1 S Piperacillin/Tazobactam $$ 8 S Tobramycin $ <=1 S (NF) indicates non-formulary drug at [facility]. Approval by Infectious Disease Specialist required before non-formulary drugs may be ordered and/or dispensed. Performed By: #### M100.0650 #### [facility] [address] [facility] [facility] [id number] CYTOSPIN ON FLUID Observed: 02/19/2017 Status: F Source: [place] 2:00 PM [facility] Patient: NIKKI VIZCARRA : 1945 (72/F) Acct Num: [id number] Phys: Yamel HATCH,Cahrlie Tan Unit Num: [id number] Loc: LABSPEC Specimen: [id number] Received: 02/19/17 - 2255 Spec Type: CYSPIN FL TISSUES TISSUES: Urine COMMENT Clinical correlation and appropriate follow up are necessary. CYTOLOGY GROSS Received is 30 ml of clear yellow fluid labeled with the patient's name and and designated per the requisition as urine. Submitted for cytology preparation. / 02/20/17 TC:2 CPT: 53598 CYTOLOGY STUDY Slides are reviewed. The specimen consists of benign squamous cells, a few urothelial cells and numerous neutrophils. DIAGNOSIS CYTOLOGY Urine for cytology (cytospin): Negative for malignant cells. Acute inflammation. SJ:vania 02/21/17 HEADER OPERATION: Not noted PRE-OP DIAGNOSIS: Hematuria R31.9 TISSUE SUBMITTED: Urine for cytology Signed Storm Dupree 02/21/17 <signature on file> Performed By: #### PCYSPIN #### [facility] [address] [facility] [place], [place], [address] CYTOLOGY, BODY FLUID / Collected: 02/19/2017 Status: F Source: [place] CSF 2:00 PM [facility]POS[facility] Order Comment: Specimen Source: URINE TYPE CODE TESTS RESULT OUT OF RANGE REFERENCE UNITS LAB L350.1000 SEE Normal PATHOLOGY CYTOLOGY,BF REPORT /CSF Result Comment: Specimen submitted to Anatomical Pathology Department for testing. Performed By: #### L350.1000 #### [facility] [address] [place] [place], [address] BASIC METABOLIC Collected: 02/13/2017 Status: F Source: [place] PROFILE (BMP) 11:48 AM [facility] REPOSITORY TYPE CODE TESTS RESULT OUT OF RANGE REFERENCE UNITS LAB L501.0100 70-110 mg/dL Normal GLU 105 LAB L501.1000 7-18 mg/dL High BUN 27 LAB L501.1100 0.55-1.02 mg/dL High 1.57 CREAT,SERUM Result Comment: The validity of the calculated GFR AND GFRAA in patients over 70 years has not been determined. Clinical correlation is essential. LAB L501.1110 >60 mL/min Low EST GFR 34 Result Comment: Non- GFR Calc LAB L501.1115 >60 mL/min Low EST GFR - AA 42 Result Comment: GFR Calc LAB L501.1300 10-20 RATIO Normal BUN/CRE 17.2 LAB L501.2200 8.5-10.1 mg/dL CA Normal 9.3 LAB L501.5300 136-145 mmol/L NA Normal 140 LAB L501.5600 3.5-5.1 mmol/L K Normal 4.2 LAB L501.5900 98-107 mmol/L CL Normal 104 LAB L501.6100 21.0-32.0 mmol/L Normal CO2 28.0 LAB L501.6200 5-15 Normal GAP 8 Performed By: #### L500.2500 #### [facility] [address] [place], [address] BASIC METABOLIC Collected: 02/06/2017 Status: F Source: [place] PROFILE ([facility]) 5:36 PM [facility] REPOSITORY TYPE CODE TESTS RESULT OUT OF RANGE REFERENCE UNITS LAB L501.0100 70-110 mg/dL Normal GLU 101 LAB L501.1000 7-18 mg/dL High BUN 30 LAB L501.1100 0.55-1.02 mg/dL High 1.67 CREAT,SERUM Result Comment: The validity of the calculated GFR AND GFRAA in patients over 70 years has not been determined. Clinical correlation is essential. LAB L501.1110 >60 mL/min Low EST GFR 32 Result Comment: Non- GFR Calc LAB L501.1115 >60 mL/min Low EST GFR - AA 39 Result Comment: GFR Calc LAB L501.1300 10-20 RATIO Normal BUN/CRE 18.0 LAB L501.2200 8.5-10.1 mg/dL CA Normal 9.0 LAB L501.5300 136-145 mmol/L NA Normal 142 LAB L501.5600 3.5-5.1 mmol/L K Normal 3.7 LAB L501.5900 98-107 mmol/L CL Normal 103 LAB L501.6100 21.0-32.0 mmol/L Normal CO2 31.0 LAB L501.6200 5-15 Normal GAP 8 Performed By: #### L500.2500 #### [facility] [address] [place], [address] CBC W/DIFF, AUTOMATED Collected: 01/25/2017 Status: F Source: RUY 2:56 PM [facility] REPOSITORY TYPE CODE TESTS RESULT OUT OF RANGE REFERENCE UNITS LAB L100.1000 4.4-11.0 K/mm3 High WBC 15.3 LAB L100.1200 4.2-5.4 M/mm3 Normal RBC 4.67 LAB L100.1300 12.0-15.0 g/dl Normal HGB 13.3 LAB L100.1400 37-47 % Normal HCT 42.7 LAB L100.1500 81-99 fL Normal MCV 91.4 LAB L100.1600 27.0-32.0 pg Normal MCH 28.5 LAB L100.1700 32-36 g/gl Low MCHC 31.1 LAB L100.1810 11.6-14.6 % High RDW CV 14.9 LAB L100.1820 35.1-43.9 fl High RDW SD 49.1 LAB L100.1900 150-450 K/mm3 Normal PLT 153 LAB L100.2000 6.2-12.0 fl Normal MPV 11.5 LAB L100.2100 47-70 % High NEUT% 77.2 LAB L100.2200 19-41 % Low LY% 11.1 LAB L100.2300 0-10 % Normal MONO% 6.6 LAB L100.2400 0-5 % Normal EO% 3.5 LAB L100.2500 0-1 % Normal BASO% 0.2 LAB L100.2550 0.0-0.9 % High IM GRAN % 1.400 Result Comment: IG% - Immature Granulocytes (promyelocytes, myelocytes and metamyelocytes) > 1% indicates that a LEFT SHIFT is Present. LAB L100.2620 2.0-7.7 X10 3/uL High Absolute Neut 11.9 LAB L100.2720 0.83-4.51 X10 3/ul Normal Absolute Lymph 1.70 Performed By: #### L100.0100 #### [facility] [place], [address] COMPREHENSIVE METABOLIC Collected: 01/25/2017 Status: F Source: RUY VALENZUELA 2:56 PM [facility] REPOSITORY TYPE CODE TESTS RESULT OUT OF RANGE REFERENCE UNITS LAB L501.0100 70-110 mg/dL High GLU 135 Result Comment: Fasting Glucose result greater than or equal to 126 mg/dL suggests DIABETES MELLITUS per A.D.A. criteria. LAB L501.1000 7-18 mg/dL High BUN 31 LAB L501.1100 0.55-1.02 mg/dL High CREAT,SERUM 1.04 Result Comment: The validity of the calculated GFR AND GFRAA in patients over 70 years has not been determined. Clinical correlation is essential. LAB L501.1110 >60 mL/min Low EST GFR 55 Result Comment: Non- GFR Calc LAB L501.1115 >60 mL/min Normal EST GFR - AA 67 Result Comment: GFR Calc LAB L501.1300 10-20 RATIO High BUN/CRE 29.8 LAB L501.1500 6.4-8.2 g/dL Low T PROT 5.9 LAB L501.1800 3.4-5.0 g/dL Low ALB 2.7 Result Comment: Please note revised Albumin AND Globulin reference range effective 2016. LAB L501.1950 2.2-4.2 g/dL Normal GLOB 3.2 LAB L501.2000 0.9-2.4 RATIO Low A/G 0.8 LAB L501.2200 8.5-10.1 mg/dL Normal CA 8.7 LAB L501.4100 15-37 U/L Normal AST 22 Result Comment: Slight Hemolysis, Result may be falsely increased. LAB L501.4305 45-117 U/L Normal ALK P 65 LAB L501.4405 12-78 U/L Normal ALT 25 LAB L501.4600 0.20-1.00 mg/dL Normal T BILI 0.90 LAB L501.5300 136-145 mmol/L Normal NA 142 LAB L501.5600 3.5-5.1 mmol/L Normal K 4.3 Result Comment: Slight Hemolysis, Result may be falsely increased. LAB L501.5900 98-107 mmol/L High CL 110 LAB L501.6100 21.0-32.0 mmol/L Normal CO2 22.0 LAB L501.6200 5-15 Normal GAP 10 Performed By: #### L500.4050, L500.4100, L501.9520 #### [facility] [address] [place], [place], [address] LIPID PROFILE Collected: 01/25/2017 Status: F Source: [place] 2:56 PM [facility] REPOSITORY TYPE CODE TESTS RESULT OUT OF RANGE REFERENCE UNITS LAB L501.4900 200 mg/dL Normal CHOL 134 Result Comment: <200 mg/dL Desirable 200-240 mg/dL Borderline >240 mg/dL High Risk LAB L501.5000 mg/dL Normal TRIG 70 Result Comment: The drugs N-Acetylcysteine and Metamizole may falsely depress this assay. Serum Triglycerides Reference Interval Normal <150 mg/dL Borderline high 150 - 199 mg/dL High 200 - 499 mg/dL Very High > or = 500 mg/dL LAB L501.6400 mg/dL Normal HDL 64 Result Comment: The drugs N-Acetylcysteine and Metamizole may falsely depress this assay. Reference Range HDL <40 mg/dL Low HDL Cholesterol HDL >or= 60 mg/dL High HDL Cholesterol LAB L501.6500 0-130 mg/dL Normal LDL 56 LAB L501.6600 5-40 mg/dL Normal VLDL 14 Performed By: #### L500.4050, L500.4100, L501.9520 #### [facility] [address] [place], [place], [address] THYROID STIM HORMONE Collected: 01/25/2017 Status: F Source: RUY (TSH) 2:56 PM [facility] REPOSITORY TYPE CODE TESTS RESULT OUT OF RANGE REFERENCE UNITS LAB L501.9520 0.358-3.74 uIU/mL Normal TSH 0.56 Performed By: #### L500.4050, L500.4100, L501.9520 #### [facility] [address] [place], [place], [address] ALLERGIES ALLERGIES DATE TYPE / CODE NAME / CODE REACTION SEVERITY SOURCE 12/28/2017 Drug ciprofloxacin Hives Unknown [place]uy Allergy/416 HCl/[id number](RXNO Community 871434([facility] ED CT) Repository 12/28/2017 Drug Penicillins/C897817 Hives Unknown [place] Allergy/416 476(RXNORM) Community 790570([facility] ED CT) Repository 12/28/2017 Drug Latex, Natural Rash Unknown Ruy Allergy/416 Rubber/[id number](R Community 685741([facility] ED CT) Repository 12/28/2017 Drug codeine/[id number]( Unknown Unknown [place] Allergy/416 RXNORM) Community 173966([facility] ED CT) Repository 12/28/2017 Drug ciprofloxacin/F0060 Hives Unknown [place] Allergy/416 42114(RXNORM) Community 917845([facility] ED CT) Repository 12/28/2017 Drug adhesive Rash Unknown Ruy Allergy/416 tape/[id number](RXN Community 195306([facility] ED CT) Repository ENCOUNTERS ENCOUNTERS ADMIT/DISCHARGE ACCOUNT ADMITTING ENCOUNTER LOCATION SOURCE NUMBER CLASS 01/17/2018 [id number] Ambulatory Ruy [place] 0 [facility] ing:WC Repository 01/14/2018 [id number] Ambulatory [place] 6 [facility] ing:MTLAB Repository 01/04/2018 [id number] Ambulatory [place] 8 [facility] ing:MRI Repository 01/03/2018/ [id number] Emergency Ruy Ruy 8 3 [facility] ing:ED Repository 01/03/2018/ [id number] Ambulatory [place] Ruy 8 9 [facility] ing:WC Repository 12/28/2017/ [id number] Emergency [place] 8 0 [facility] ing:ED Repository 12/25/2017 [id number] Ambulatory [place] Ruy 5 [facility] ing:POLAB3 Repository 12/16/2017/ [id number] Stevie, Inpatient [place] Ruy 8 9 [place] Encounter [facility] ing:RE0Cjkj: Repository ZS305Wsl: 1 12/16/2017 [id number] Stevie, Ambulatory BMSBuilding:B [place] 1 [place] Repository 12/16/2017 [id number] Stevie, Ambulatory BMSBuilding:B Ruy 5 [place].[facility] Repository 12/16/2017 [id number] Stevie, Ambulatory BMSBuilding:B Ruy 4 [place].[facility] Repository 12/16/2017 [id number] [facility], Ambulatory BMSBuilding:B Ruy 8 [place] Repository 12/16/2017 [id number] [facility], Ambulatory BMSBuilding:B [place] 7 [place].[facility] Repository 12/16/2017 [id number] [facility], Ambulatory BMSBuilding:B [place] 9 [place].[facility] Repository 12/15/2017/ [id number] Emergency Ruy [place] 8 5 [facility] ing:ED Repository 12/06/2017 [id number] Ambulatory [place]rix[place] Brix[place] 0 [facility] ing:LAB.FUTUR Repository E 11/29/2017/ [id number] Ambulatory [place] 8 1 [facility] ing:WC Repository 11/26/2017 [id number] Ambulatory [place]rix[place] 6 [facility] ing:LAB.FUTUR Repository E 11/20/2017 [id number] Ambulatory [place] 4 [facility] ing:POLAB3 Repository 11/13/2017 [id number] Ambulatory Ruy Ruy 7 [facility] ing:[facility] Repository C 10/30/2017 [id number] Ambulatory [place]rix[place]rix[place] 6 [facility] ing:[facility] Repository C 10/24/2017/ [id number] Agyepong, Inpatient [place] Ruy 8 4 [place] Encounter [facility] ing:FE4Evql: Repository LO785Tdg: 1 10/24/2017 [id number] Agyepong, Ambulatory BMSBuilding:B [place] 1 [place] Repository 10/24/2017 [id number] Agyepong, Ambulatory BMSBuilding:B [place] 7 [place].[facility] Repository 10/24/2017 [id number] Agyepong, Ambulatory BMSBuilding:B Ruy 9 [place].[facility] Repository 10/24/2017 [id number] Agyepong, Ambulatory BMSBuilding:B Ruy 4 [place].[facility] Repository 10/24/2017 [id number] Ambulatory [place]rix[place] Brixey 7 [facility] ing:LAB.FUTUR Repository E 10/18/2017/ [id number] Ambulatory [place] Ruy 8 9 [facility] ing:WC Repository 10/17/2017 [id number] Ambulatory Ruy [place] 6 [facility] ing:LAB.FUTUR Repository E 10/16/2017 [id number] Ambulatory Ruy [place] 3 [facility] ing:LAB.FUTUR Repository E 10/13/2017 [id number] Ambulatory Ruy Ruy 1 [facility] ing:POLAB3 Repository 10/12/2017 [id number] Ambulatory Ruy [place] 8 [facility] ing:MEDOUTP Repository 10/12/2017 [id number] Ambulatory Ruy [place] 9 [facility] ing:LAB.FUTUR Repository E 10/10/2017 [id number] Ambulatory Ruy Ruy 4 [facility] ing:POLAB3 Repository 10/05/2017 [id number] Ambulatory [place] Ruy 4 [facility] ing:RAD Repository 10/04/2017 [id number] Ambulatory Ruy Ruy 2 [facility] ing:LAB Repository 10/04/2017/ [id number] Ambulatory Brixey Brix[place] 8 2 [facility] ing:WC Repository 08/30/2017/ [id number] Ambulatory Ruy [place] 8 1 [facility] ing:WC Repository 08/24/2017 [id number] Ambulatory Brix[place] Brixey 7 [facility] ing:RAD Repository 08/22/2017/ [id number] Ambulatory BMSBuilding:B Ruy 8 3 [facility] Repository 08/02/2017/ [id number] Ambulatory Brixey Brix[place] 8 5 [facility] ing:WC Repository 07/05/2017/ [id number] Ambulatory Ruy Ruy 8 1 [facility] ing:WC Repository 06/18/2017 [id number] Ambulatory Ruy [place] 6 [facility] ing:[facility] Repository 06/18/2017 [id number] Ambulatory BMSBuilding:W Ruy 5 [facility] Hospital Repository 06/15/2017 [id number] Ambulatory Ruy [place] 6 [facility] ing:RAD Repository 06/13/2017 [id number] Ambulatory BMSBuilding:B [place] 3 [place] Repository 06/13/2017 [id number] Ambulatory [place] Ruy 4 [facility] ing:LAB.FUTUR Repository E 06/07/2017 [id number] Ambulatory Brixey Brix[place] 1 [facility] ing:LAB.FUTUR Repository E 05/31/2017/ [id number] Ambulatory [place] Ruy 8 0 [facility] ing: Repository 05/23/2017/ [id number] Ambulatory BMSBuilding:B Ruy 8 5 [place] Repository 05/16/2017 [id number] Ambulatory Brixey Brix[place] 2 [facility] ing:US Repository 05/11/2017/ [id number] Ambulatory BMSBuilding:W Ruy 8 5 [facility] Hospital Repository 05/11/2017/ [id number] Ambulatory BMSBuilding:W [place] 8 3 [facility] Hospital Repository 05/10/2017/ [id number] [place], [facility]ulatory [facility]uy [facility]uy [facility] ing:PC[facility]oom: Repository SQT401Vad: 1 05/10/2017 [id number] [place]helf[place], Ambulatory BMSBuilding:B Ruy 6 [place].[facility] Repository 05/10/2017 [id number] [place], Ambulatory BMSBuilding:B [place] 9 [place].[facility] Repository 05/09/2017 [id number] Ambulatory Brix[place] Brix[place] 9 [facility] ing:LAB Repository 05/04/2017 [id number] Ambulatory Ruy Ruy 5 [facility] ing:MEDOUTP Repository 05/03/2017/ [id number] Ambulatory [place] Ruy 8 2 [facility] ing:WC Repository 05/01/2017 [id number] Ambulatory Ruy Ruy 7 [facility] ing:POLAB3 Repository 04/27/2017 [id number] Ambulatory Brix[place] Brix[place] 3 [facility] ing:POLAB3 Repository 04/26/2017/ [id number] Emergency Brix[place] Brix[place] 8 4 [facility] ing:ED Repository 04/19/2017 [id number] Ambulatory Ruy [place] 6 [facility] ing:NM Repository 04/18/2017 [id number] Ambulatory Ruy [place] 8 [facility] ing:RAD Repository 04/18/2017 [id number] Ambulatory [place] Ruy 7 [facility] ing:POLAB3 Repository 04/18/2017 [id number] Ambulatory BMSBuilding:W [place] 8 [facility] Hospital Repository 04/15/2017/ [id number] Emergency [place] Ruy 8 0 [facility] ing:ED Repository 04/11/2017 [id number] Ambulatory BMSBuilding:B Ruy 0 [place] Repository 03/16/2017 [id number] Ambulatory [place] Ruy 9 [facility] ing:LABSPEC Repository 03/15/2017/ [id number] Ambulatory Ruy Ruy 8 8 [facility] ing:MEDOUTP Repository 03/15/2017 [id number] Ambulatory [place] Ruy 0 [facility] ing:POLAB3 Repository 03/05/2017 [id number] Ambulatory [place] Ruy 5 [facility] ing:POLAB3 Repository 02/26/2017 [id number] Ambulatory Ruy [place] 6 [facility] ing:LABSPEC Repository 02/19/2017 [id number] Ambulatory Ruy [place] 8 [facility] ing:LABSPEC Repository 02/13/2017 [id number] Ambulatory Ruy Ruy 5 [facility] ing:LAB.FUTUR Repository E 02/06/2017 [id number] Ambulatory [place] Ruy 7 [facility] ing:LAB Repository 01/25/2017 [id number] Ambulatory [place] Ruy 3 [facility] ing:POLAB3 Repository PAYERS PAYERS ENCOUNTER GUARANTOR PAYER SUBSCRIBER SOURCE 01/17/2018 NIKKI [id number] Primary NIKKI L [place] Insurance:HUMANA GOLD DOHENYDOB[place] [id number] Hospital [address]Lbq: (330) Number: Repository [phone] () [id number] Date:8367-64-68MZ [address] [address]PB: 01/17/2018 Secondary NOT GIVENUNK [place] Insurance:SELF PAY [facility] Number: Effective Repository Date:2018-01-05 01/14/2018 NIKKI Limon [id number] Primary NIKKI L Ruy [place] Insurance:HUMANA GOLD DOHENYDOB: [place] [id number] [id number]: (330) Number: Repository [phone] () [id number] Date:5450-68-90XB [address] [address]MQ: 01/14/2018 Secondary NOT GIVENUNK [place] Insurance:SELF PAY [facility] Number: Effective Repository Date:2018-01-14 01/04/2018 NIKKI L [id number] Primary NIKKI L Ruy [place] Insurance:HUMANA GOLD DOHENYDOB: [place] [id number] [id number]: [phone]) Number: Repository [phone] () [id number] Date:7102-26-58XB [address] [address]XY: 01/04/2018 Secondary NOT GIVENUNK [place] Insurance:SELF PAY [facility] Number: Effective Repository Date:2017-12-12 01/03/2018 NIKKI Limon [id number] Primary NIKKI L Ruy [place] Insurance:HUMANA GOLD DOHENYDOB: [place] [id number] Hospital [address]Ydk: (330) Number: Repository [phone] () [id number] Date:2028-76-32[place] [address]WP: 01/03/2018 Secondary NOT GIVENUNK Ruy Insurance:SELF PAY [facility] Number: Effective Repository Date:2018-01-03 01/03/2018 NIKKI [id number] Primary NIKKI L Ruy [place] Insurance:HUMANA GOLD DOHENYDOB: [place] [id number] [place] [id number]: ([phone]) Number: Repository [phone] () [id number] Date:0274-37-91ZV [place] [address]WP: 01/03/2018 Secondary NOT GIVENUNK [place] Insurance:SELF PAY [facility] Number: Effective Repository Date:2017-12-06 12/28/2017 NIKKI Limon [id number] Primary NIKKI L [place] Insurance:HUMANA GOLD DOHENYDOB: [place] [id number] Ville [id number]: (330) Number: Repository [phone] () [id number] Date:8189-57-64RI [address] [address]NX: 12/28/2017 Secondary NOT GIVENUNK Ruy Insurance:SELF PAY [facility] Number: Effective Repository Date:2017-12-28 12/25/2017 NIKKI Limon [id number] Primary NIKKI L [place] Insurance:HUMANA GOLD DOHENYDOB: [place] [id number] [place] [id number]: (330) Number: Repository [phone] () [id number] Date:6310-70-87AY [address] [address]MF: 12/25/2017 Secondary NOT GIVENUNK [place] Insurance:SELF PAY [facility] Number: Effective Repository Date:2017-12-25 12/16/2017 NIKKI Limon [id number] Primary NIKKI L Ruy [place] Insurance:HUMANA GOLD DOHENYDOB: [place] [id number] Hospital [address]Ogt: (330) Number: Repository [phone] () [id number] Date:7793-29-05FO [place] [address]WP: 12/16/2017 Secondary NOT GIVENUNK [place] Insurance:SELF PAY [facility] Number: Effective Repository Date:2017-12-16 12/16/2017 NIKKI Limon [id number] Primary NIKKI L [place] Insurance:HUMANA GOLD DOHENYDOB: [place] [id number] Hospital [address]Ycc: (330) Number: Repository [phone] () [id number] Date:7910-49-49HS [place] [address]: 12/16/2017 Secondary NOT GIVENUNK Ruy Insurance:SELF PAY [facility] Number: Effective Repository Date:2017-12-16 12/16/2017 NIKKI Limon [id number] Primary NIKKI L [place] Insurance:HUMANA GOLD DOHENYDOB: [place] [id number] Hospital [address]Yye: (330) Number: Repository [phone] () [id number] Date:2791-71-92HJ [address] [address]BZ: 12/16/2017 Secondary NOT GIVENUNK [place] Insurance:SELF PAY [facility] Number: Effective Repository Date:2017-12-16 12/16/2017 NIKKI L [id number] Primary NIKKI L [place] Insurance:HUMANA GOLD DOHENYDOB: [place] [id number] Hospital [address]Gbx: (330) Number: Repository [phone] () [id number] Date:2092-83-64KH [address] [address]BD: 12/16/2017 Secondary NOT GIVENUNK Ruy Insurance:SELF PAY [facility] Number: Effective Repository Date:2017-12-16 12/16/2017 NIKKI L [id number] Primary NIKKI L [place] Insurance:HUMANA GOLD DOHENYDOB: [place] [id number] Hospital [address]Vbg: (330) Number: Repository [phone] () [id number] Date:6649-07-34KK [place] [address]WP: 12/16/2017 Secondary NOT GIVENUNK [place] Insurance:SELF PAY [facility] Number: Effective Repository Date:2017-12-16 12/16/2017 NIKKI L [id number] Primary NIKKI L [place] Insurance:HUMANA GOLD DOHENYDOB: [place] [id number] Hospital [address]Adv: (330) Number: Repository [phone] () [id number] Date:8416-70-27HT [address] [address]RE: 12/16/2017 Secondary NOT GIVENUNK [place] Insurance:SELF PAY [facility] Number: Effective Repository Date:2017-12-16 12/16/2017 NIKKI L [id number] Primary NIKKI L [place] Insurance:HUMANA GOLD DOHENYDOB: [place] [id number] Hospital [address]Vec: (330) Number: Repository [phone] () [id number] Date:8689-07-21EH [address]WP: 12/16/2017 Secondary NOT GIVENUNK [place] Insurance:SELF PAY [facility] Number: Effective Repository Date:2017-12-16 12/15/2017 NIKKI [id number] Primary NIKKI L Ruy [place] Insurance:HUMANA GOLD DOHENYDOB[place] [id number] [place] [id number]: (330) Number: Repository [phone] () [id number] Date:9231-55-17KX [address] [address]PI: 12/15/2017 Secondary NOT GIVENUNK Ruy Insurance:SELF PAY [facility] Number: Effective Repository Date:2017-12-15 12/06/2017 NIKKI [id number] Primary NIKKI L [place] Insurance:HUMANA GOLD DOHENYDOB: [place] [id number] [place] [address]Tel: (330) Number: Repository [phone] () [id number] Date:1435-89-95HA [address] [address]GZ: 12/06/2017 Secondary NOT GIVENUNK [place] Insurance:SELF PAY [facility] Number: Effective Repository Date:2017-12-06 11/29/2017 NIKKI Limon [id number] Primary NIKKI L Ruy [place] Insurance:HUMANA GOLD DOHENYDOB: [place] [id number] [id number]: (330) Number: Repository [phone] () [id number] Date:9571-00-71PE [address] [address]FM: 11/29/2017 Secondary NOT GIVENUNK [place] Insurance:SELF PAY [facility] Number: Effective Repository Date:2017-11-05 11/26/2017 NIKKI L [id number] Primary NIKKI L [place] Insurance:HUMANA GOLD [place] [id number] [facility] 10838Rkk: (330) Number: Repository [phone] () [id number] Date:1406-42-20QV [address] [place] [address]JW: 11/26/2017 Secondary NOT GIVENUNK Ruy Insurance:SELF PAY [facility] Number: Effective Repository Date:2017-11-26 11/20/2017 NIKKI L [id number] Primary NIKKI L Ruy [place] Insurance:HUMANA [place] DOHENYDOB[place] [id number] Hospital 32210Xha: (330) Number: Repository [phone] () [id number] Date:0599-19-75FX [address] [address]FQ: 11/20/2017 Secondary NOT GIVENUNK Ruy Insurance:SELF PAY [facility] Number: Effective Repository Date:2017-11-20 11/13/2017 NIKKI L [id number] Primary [place] GIVENUNK [place]uy [place] Insurance:SELF PAY [facility] 25995Vpb: (330) Number: Effective Repository [phone] () Date:2017-11-13 10/30/2017 NIKKI L [id number] Primary NOT GIVENUNK [place]uy [place] Insurance:SELF PAY [facility] 27782Tim: (330) Number: Effective Repository [phone] () Date:2017-10-30 10/24/2017 NIKKI L [id number] Primary NIKKI L Brixey [place] Insurance:HU[place]NA [place] DOHENYDOB[place] [id number] Hospital 36733Gun: (330) Number: Repository [phone] () [id number] Date:9395-73-80FE [address] [address]CA: 10/24/2017 Secondary NOT GIVENUNK [place] Insurance:SELF PAY [facility] Number: Effective Repository Date:2017-10-24 10/24/2017 NIKKI Limon [id number] Primary NIKKI L Ruy [place] Insurance:HU[place] G[place] DOHENYDOB: [place] [id number] Hospital 04855Zlf: (330) Number: Repository [phone] () [id number] Date:6968-06-23MP [place] [address]WP: 10/24/2017 Secondary NOT GIVENUNK [place] Insurance:SELF PAY [facility] Number: Effective Repository Date:2017-10-24 10/24/2017 NIKKI [id number] Primary NIKKI L Ruy [place] Insurance:HUMANA GOLD DOHENYDOB: [place] [id number] Hospital 27313Jqa: (330) Number: Repository [phone] () [id number] Date:1579-69-17GG [place] [address]WP: 10/24/2017 Secondary NOT GIVENUNK [place] Insurance:SELF PAY [facility] Number: Effective Repository Date:2017-10-24 10/24/2017 NIKKI Limon [id number] Primary NIKKI L Ruy [place] Insurance:HU[place]NA [place] DOHENYDOB: [place] [id number] Hospital 86221Upn: (330) Number: Repository [phone] () [id number] Date:0460-61-54PQ [place] [address]WP: 10/24/2017 Secondary NOT GIVENUNK [place] Insurance:SELF PAY [facility] Number: Effective Repository Date:2017-10-24 10/24/2017 NIKKI Limon [id number] Primary NIKKI L Ruy [place] Insurance:[place] DOHENYDOB: [place] [id number] Hospital 52279Fzk: (330) Number: Repository [phone] () [id number] Date:7117-05-01XD [address] [address]YT: 10/24/2017 Secondary NOT GIVENUNK [place] Insurance:SELF PAY [facility] Number: Effective Repository Date:2017-10-24 10/24/2017 NIKKI Limon [id number] Primary NIKKI L Ruy [place] Insurance:HUMANA GOLD [facility] [id number] [facility] 88785Cao: (330) Number: Repository [phone] () [id number] Date:8278-47-01LW [address] [address]GJ: 10/24/2017 Secondary NOT GIVENUNK [place] Insurance:SELF PAY [facility] Number: Effective Repository Date:2017-10-24 10/18/2017 NIKKI [id number] Primary NIKKI L Ruy [place] Insurance:HUMANA GOLD DOHENYDOB: [facility] [place] [id number] [facility] 08653Ule: (330) Number: Repository [phone] () [id number] Date:6130-62-70KN [address] [address]LH: 10/18/2017 Secondary NOT GIVENUNK Ruy Insurance:SELF PAY [facility] Number: Effective Repository Date:2017-10-06 10/17/2017 NIKKI Limon [id number] Primary NIKKI L [place]rix[place] Insurance:HUMANA GOLD DOHENYDOB: [facility] [place] [id number] Hospital 98424Vul: (330) Number: Repository [phone] () [id number] Date:4671-51-95TY [address] [address]VT: 10/17/2017 Secondary NOT GIVENUNK [place] Insurance:SELF PAY [facility] Number: Effective Repository Date:2017-10-17 10/16/2017 NIKKI L [id number] Primary NIKKI L Ruy [place] Insurance:HUMANA GOLD [facility]D[facility] [facility] [id number] Hospital 81544Ewb: (330) Number: Repository [phone] () [id number] Date:3552-46-59BV [place] [address]WP: 10/16/2017 Secondary NOT GIVENUNK Ruy Insurance:SELF PAY [facility] Number: Effective Repository Date:2017-10-16 10/13/2017 NIKKI L [id number] Primary NIKKI L Ruy [place] Insurance:HU[place]NA GOLD DOHENYDOB: [place] [id number] [address]Tel: (330) Number: Repository [phone] () [id number] Date:2693-73-37QV [place] [address]WP: 10/13/2017 Secondary NOT GIVENUNK Ruy Insurance:SELF PAY [facility] Number: Effective Repository Date:2017-10-11 10/12/2017 NIKKI L [id number] Primary NIKKI L [place] Insurance:HUMANA GOLD [place] [facility] [id number] [place] [id number]: (330) Number: Repository [phone] () [id number] Date:6923-68-00KL [place] [address]WP: 10/12/2017 Secondary NOT GIVENUNK [place] Insurance:SELF PAY [facility] Number: Effective Repository Date:2017-10-11 10/12/2017 NIKKI L [id number] Primary NIKKI L Ruy [place] Insurance:HU[place]NA GOLD DOHENYDOB: [place] [id number] [place] [id number]: (330) Number: Repository [phone] () [id number] Date:6692-28-35SX [place] [address]WP: 10/12/2017 Secondary NOT GIVENUNK Ruy Insurance:SELF PAY [facility] Number: Effective Repository Date:2017-10-12 10/10/2017 NIKKI [id number] Primary NIKKI L Ruy [place] Insurance:HUMANA GOLD [place]D[facility] [facility] [id number] [place]ille [id number]: (330) Number: Repository [phone] () [id number] Date:9342-27-75AX [address] [address]GP: 10/10/2017 Secondary NOT GIVENUNK R[place] Insurance:SELF PAY [facility] Number: Effective Repository Date:2017-10-10 10/05/2017 NIKKI [id number] Primary NIKKI L Brixey [place] Insurance:HU[place]NA GOLD DOHENYDOB: [place] [id number] [place] [address]Tel: (330) Number: Repository [phone] () [id number] Date:4492-57-17JS [address] [address]ZN: 10/05/2017 Secondary NOT GIVENUNK [place] Insurance:SELF PAY [facility] Number: Effective Repository Date:2017-10-05 10/04/2017 NIKKI Limon [id number] Primary NIKKI L Ruy [place] Insurance:HUMANA GOLD DOHENYDOB: [place] [facility] [id number] [place]ille [id number]: (330) Number: Repository [phone] () [id number] Date:6632-84-22EW [address] [address]DE: 10/04/2017 Secondary NOT GIVENUNK R[place] Insurance:SELF PAY [facility] Number: Effective Repository Date:2017-10-04 10/04/2017 NIKKI Limon [id number] Primary NIKKI L Ruy [place] Insurance:HU[place]NA GOLD [place]D[facility] [facility] [id number] Hospital [address]70Aem: (330) Number: Repository [phone] () [id number] Date:6842-27-13[place] [address]WP: 10/04/2017 Secondary NOT GIVENUNK Ruy Insurance:SELF PAY [facility] Number: Effective Repository Date:2017-09-05 08/30/2017 NIKKI L [id number] Primary NIKKI L Brixey [place] Insurance:HUMANA GOLD DOHENYDOB: [place] [id number] Hospital 32215Mrx: (330) Number: Repository [phone] () [id number] Date:8805-42-14PA [address]46[address]WP: 08/30/2017 Secondary NOT GIVENUNK [place] Insurance:SELF PAY [facility] Number: Effective Repository Date:2017-08-05 08/24/2017 NIKKI L [id number] Primary NIKKI L Ruy [place] Insurance:HU[place] GOLD DOHENYDOB: [place] [id number] Hospital 92190Grp: (330) Number: Repository [phone] () [id number] Date:0391-20-99HU [address] [address]QV: 08/24/2017 Secondary NOT GIVENUNK [place]uy Insurance:SELF PAY [facility] Number: Effective Repository Date:2017-08-24 08/22/2017 NIKKI L [id number] Primary NIKKI L Ruy [place] Insurance:[place] GOLD DOHENYDOB: [place] [id number] Hospital 39974Cff: (330) Number: Repository [phone] () [id number] Date:2189-13-40PL [address] [address]LP: 08/22/2017 Secondary NOT GIVENUNK [place]uy Insurance:SELF PAY [facility] Number: Effective Repository Date:2017-08-22 08/02/2017 NIKKI Limon [id number] Primary NIKKI L Ruy [place] Insurance:HU[place] GOLD DOHENYDOB: [place] [id number] Hospital 75274Qtt: (330) Number: Repository [phone] () [id number] Date:8974-09-59QT [place] [address]WP: 08/02/2017 Secondary NOT GIVENUNK [place] Insurance:SELF PAY [facility] Number: Effective Repository Date:2017-07-06 07/05/2017 NIKKI L [id number] Primary NIKKI L Ruy [place] Insurance:HU[place] GOLD DOHENYDOB: [place] [id number] [place]ille [id number]: Number: Repository [phone] [id number] (HP) Date:2089-45-18QW [address]46[address]WP: 07/05/2017 Secondary NOT GIVENUNK [place] Insurance:SELF PAY [facility] Number: Effective Repository Date:2017-06-05 06/18/2017 NIKKI Limon [id number] Primary NIKKI L Ruy [place] Insurance:HU[place] GOLD DOHENYDOB: [place] [id number] [place] [id number]: Number: Repository [phone] [id number] () Date:4251-22-94DU [place] [address]WP: 06/18/2017 Secondary NOT GIVENUNK Ruy Insurance:SELF PAY [facility] Number: Effective Repository Date:2017-05-24 06/18/2017 NIKKI Limon [id number] Primary NIKKI L [place]rix[place] Insurance:HU[place] GOLD DOHENYDOB: [place] [id number] [place] [id number]: Number: Repository [phone] [id number] (HP) Date:4595-48-37MS [address] [place] [address]MA: 06/18/2017 Secondary NOT GIVENUNK [place] Insurance:SELF PAY [facility] Number: Effective Repository Date:2017-06-18 06/15/2017 NIKKI Limon [id number] Primary NIKKI L Ruy [place] Insurance:HU[place]NA [place]OLD DOH[place]DOB: [place] [facility] [place] [id number] [place] [address]Tel: Number: Repository [phone] [id number] (HP) Date:3688-54-44PA [address] [place] [address]WP: 06/15/2017 Secondary NOT GIVENUNK [place] Insurance:SELF PAY [facility] Number: Effective Repository Date:2017-06-15 06/13/2017 NIKKI [id number] Primary NIKKI L [place]rix[place] Insurance:HU[place]NA GOLD DOHENYDOB: [place] [id number] [place]ille [address]Tel: Number: Repository [phone] [id number] (HP) Date:8481-62-56TN [place] [address]WP: 06/13/2017 Secondary NOT GIVENUNK Ruy Insurance:SELF PAY [facility] Number: Effective Repository Date:2017-06-13 06/13/2017 NIKKI Limon [id number] Primary NIKKI L Ruy [place] Insurance:HU[place]NA GOLD DOHENYDOB: [place] [id number] [place]ille [id number]: Number: Repository [phone] [id number] (HP) Date:5082-84-27WA [address] [address]CI: 06/13/2017 Secondary NOT GIVENUNK [place] Insurance:SELF PAY [facility] Number: Effective Repository Date:2017-06-13 06/07/2017 NIKKI Limon [id number] Primary NIKKI L Ruy [place] Insurance:HU[place]NA GOLD DOHENYDOB: [place] [id number] Hospital 01867Hla: Number: Repository [phone] [id number] (HP) Date:6047-36-71QD [place] [address]WP: 06/07/2017 Secondary NOT GIVENUNK Ruy Insurance:SELF PAY [facility] Number: Effective Repository Date:2017-06-05 05/31/2017 NIKKI [id number] Primary NIKKI L Ruy [place] Insurance:HU[place]NA GOLD DOHENYDOB: [place] [id number] Ville [id number]: Number: Repository [phone] [id number] (HP) Date:1447-87-72OG [address]46[address]WP: 05/31/2017 Secondary NOT GIVENUNK R[place] Insurance:SELF PAY [facility] Number: Effective Repository Date:2017-05-06 05/23/2017 NIKKI Limon [id number] Primary NIKKI L Ruy [place] Insurance:HU[place]NA GOLD DOHENYDOB: [place] [id number] [place]ille [id number]: Number: Repository [phone] [id number] (HP) Date:7441-38-44WA [address] [address]QT: 05/23/2017 Secondary NOT GIVENUNK [place] Insurance:SELF PAY [facility] Number: Effective Repository Date:2017-05-23 05/16/2017 NIKKI Limon [id number] Primary NIKKI L Ruy [place] Insurance:HUMANA GOLD DOHENYDOB: [place] [id number] [place]ille [id number]: Number: Repository [phone] [id number] (HP) Date:6451-03-57VR [address] [address]YM: 05/16/2017 Secondary NOT GIVENUNK [place] Insurance:SELF PAY [facility] Number: Effective Repository Date:2017-05-16 05/11/2017 NIKKI Limon [id number] Primary NIKKI L [place]rix[place] Insurance:HUMANA GOLD DOHENYDOB: [facility] [place] [facility] [id number] [place] [id number]: Number: Repository [phone] [id number] (HP) Date:9537-31-00JO [address] [address]ZT: 05/11/2017 Secondary NOT GIVENUNK [place] Insurance:SELF PAY [facility] Number: Effective Repository Date:2017-05-11 05/11/2017 NIKKI Limon [id number] Primary NIKKI L [place] Insurance:HUMANA GOLD [place]D[facility] [facility] [id number] Hospital 48354Roi: Number: Repository [phone] [id number] (HP) Date:6181-77-37LP [place] [address]WP: 05/11/2017 Secondary NOT GIVENUNK [place] Insurance:SELF PAY [facility] Number: Effective Repository Date:2017-05-11 05/10/2017 NIKKI Limon [id number] Primary NIKKI L Ruy [place] Insurance:HUMANA GOLD [place]D[facility]: [facility] [id number] [place] [id number]: Number: Repository [phone] [id number] (HP) Date:6993-90-91MF [address] [address]AA: 05/10/2017 Secondary NOT GIVENUNK Ruy Insurance:SELF PAY [facility] Number: Effective Repository Date:2017-05-10 05/10/2017 NIKKI Limon [id number] Primary [place]KKI L [place] Insurance:HUMANA GOLD DOHENYDOB: [place] [id number] [place] [address]Tel: Number: Repository [phone] [id number] (HP) Date:3443-14-88[place] [address]WP: 05/10/2017 Secondary NOT GIVENUNK Ruy Insurance:SELF PAY [facility] Number: Effective Repository Date:2017-05-10 05/10/2017 NIKKI [id number] Primary NIKKI L [place] Insurance:HUMANA GOLD DOHENYDOB: [place] [id number] [place] [address]Tel: Number: Repository [phone] [id number] (HP) Date:2783-16-27CX [place] [address]WP: 05/10/2017 Secondary NOT GIVENUNK Ruy Insurance:SELF PAY [facility] Number: Effective Repository Date:2017-05-10 05/09/2017 Nikki Limon Doheny4221 Primary Nikki L [place] Insurance:HUMANA GOLD DohenyDOB: [place] [id number] Ville [address]Tel: Number: Repository [phone] [id number] (HP) Date:1974-05-73XT [place] [address]WP: 05/09/2017 Secondary NOT GIVENUNK [place] Insurance:SELF PAY [facility] Number: Effective Repository Date:2017-05-09 05/04/2017 Nikki Limon Doheny4221 Primary Nikki L [place] Insurance:HUMANA GOLD DohenyDOB: [place] [id number] [place] [address]Tel: Number: Repository [phone] [id number] (HP) Date:1126-65-90BT [address] [place] [address]XG: 05/04/2017 Secondary NOT GIVENUNK Ruy Insurance:SELF PAY [facility] Number: Effective Repository Date:2017-05-04 05/03/2017 Nikki Guzmány4221 Primary Nikki L Ruy [place] Insurance:HUMANA GOLD DohenyDOB: [place] [id number] Ville [id number]: Number: Repository [phone] [id number] (HP) Date:1148-84-26DP [address] [address]PY: 05/03/2017 Secondary NOT GIVENUNK [place] Insurance:SELF PAY [facility] Number: Effective Repository Date:2017-04-05 05/01/2017 Nikki Guzmány4221 Primary Nikki L Ruy [place] Insurance:HUMANA GOLD DohenyDOB: [place] [id number] [place]ille [id number]: Number: Repository [phone] [id number] (HP) Date:7464-98-41GF [place] [address]WP: 05/01/2017 Secondary NOT GIVENUNK [place] Insurance:SELF PAY [facility] Number: Effective Repository Date:2017-05-01 04/27/2017 Nikki Guzmány4221 Primary Nikki L Ruy [place] Insurance:HUMANA GOLD DohenyDOB: [place] [id number] [place] [id number]: Number: Repository [phone] [id number] (HP) Date:7776-49-66MB [address] [address]VS: 04/27/2017 Secondary NOT GIVENUNK [place] Insurance:SELF PAY [facility] Number: Effective Repository Date:2017-04-27 04/26/2017 Nikki Limon Doheny4221 Primary Nikki L [place] Insurance:HU[place]NA GOLD DohenyDOB: [place] [id number] Ville [id number]: Number: Repository [phone] [id number] (HP) Date:5246-12-15TT [place] [address]WP: 04/26/2017 Secondary NOT GIVENUNK Ruy Insurance:SELF PAY [facility] Number: Effective Repository Date:2017-04-26 04/19/2017 Nikkira Braxton Guzmány4221 Primary Nikki L Ruy [place] Insurance:HU[place]NA GOLD DohenyDOB: [place] [id number] [place]ille [address]Tel: Number: Repository [phone] [id number] (HP) Date:3411-78-98FY [place] [address]WP: 04/19/2017 Secondary NOT GIVENUNK [place] Insurance:SELF PAY [facility] Number: Effective Repository Date:2017-04-19 04/18/2017 Nikki Limon Doheny4221 Primary Nikki L [place] Insurance:HU[place]NA GOLD DohenyDOB: [place] [id number] [place]ille [id number]: Number: Repository [phone] [id number] (HP) Date:2028-95-96YH [place] [address]WP: 04/18/2017 Secondary NOT GIVENUNK [place] Insurance:SELF PAY [facility] Number: Effective Repository Date:2017-04-18 04/18/2017 Nikki Limon Doheny4221 Primary Nikki L Ruy [place] Insurance:HUMANA GOLD DohenyDOB: [place] [id number] [place]ille [id number]: Number: Repository [phone] [id number] (HP) Date:3554-58-00HB [address] [place] [address]NC: 04/18/2017 Secondary NOT GIVENUNK [place] Insurance:SELF PAY [facility] Number: Effective Repository Date:2017-04-18 04/18/2017 NIKKI Limon [id number] Primary NIKKI L [place] Insurance:HUMANA GOLD [place]YD[facility]: [facility] [id number] Hospital 13772Xui: Number: Repository [phone] [id number] (HP) Date:8061-07-36XE [address] [place] [address]AB: 04/18/2017 Secondary NOT GIVENUNK [place] Insurance:SELF PAY [facility] Number: Effective Repository Date:2017-04-18 04/15/2017 Nikki Guzmány4221 Primary Nikki L [place] Insurance:HU[place]NA GOLD DohenyDOB: [facility] [place] [id number] Ville [id number]: Number: Repository [phone] [id number] (HP) Date:3409-75-96EB [address] [address]GT: 04/15/2017 Secondary NOT GIVENUNK Ruy Insurance:SELF PAY [facility] Number: Effective Repository Date:2017-04-15 04/11/2017 Nikki Limon Doheny4221 Primary Nikki L Ruy [place] Insurance:HUMANA GOLD DohenyDOB: [facility] [place] [id number] Hospital 240[address]Inh: Number: Repository [phone] [id number] (HP) Date:4720-95-32HN [address] [address]BC: 04/11/2017 Secondary NOT GIVENUNK Ruy Insurance:SELF PAY [facility] Number: Effective Repository Date:2017-04-11 03/16/2017 Nikki Limon Doheny4221 Primary Nikki L [place] Insurance:HU[place]NA GOLD DohenyDOB: [place] [id number] Ville [id number]: Number: Repository [phone] [id number] (HP) Date:8914-94-62NG [address] [place] [address]WP: 03/16/2017 Secondary NOT GIVENUNK [place] Insurance:SELF PAY [facility] Number: Effective Repository Date:2017-03-16 03/15/2017 Nikki Limon Doheny4221 Primary Nikki L Ruy [place] Insurance:HUMANA GOLD DohenyDOB: [place] [id number] [place]ille [address]Tel: Number: Repository [phone] [id number] (HP) Date:1050-19-92AY [address]: 03/15/2017 Secondary NOT GIVENUNK [place] Insurance:SELF PAY [facility] Number: Effective Repository Date:2017-03-15 03/15/2017 Nikki Limon [address] [place] Insurance:HUMANA GOLD [place] [id number] Ville [id number]: Number: Repository [phone] [id number] (HP) Date:3053-56-54EV [address] [place], [place] [address]WP: 03/15/2017 Secondary NOT GIVENUNK Ruy Insurance:SELF PAY [facility] Number: Effective Repository Date:2017-03-15 03/05/2017 Nikki Limon [address] [place] Insurance:HUMANA GOLD [place]: [place] [id number] Ville [id number]: Number: Repository [phone] [id number] (HP) Date:5936-65-62UN [address] [address]EJ: 03/05/2017 Secondary NOT GIVENUNK [place] Insurance:SELF PAY [facility] Number: Effective Repository Date:2017-03-05 02/26/2017 Nikki Limon [address] L [place] Insurance:HUMANA GOLD [place] [place] [id number] Ville [id number]: Number: Repository [phone] [id number] (HP) Date:4822-26-85EA [address] [address]WV: 02/26/2017 Secondary NOT GIVENUNK Ruy Insurance:SELF PAY [facility] Number: Effective Repository Date:2017-02-26 02/19/2017 Nkikira Braxton [address] [place] Insurance:HUMANA GOLD [place] [facility] [place] [id number] [place]ille [address]Tel: Number: Repository [phone] [id number] (HP) Date:8143-75-93KR [address] [address]IN: 02/19/2017 Secondary NOT GIVENUNK Ruy Insurance:SELF PAY [facility] Number: Effective Repository Date:2017-02-19 02/13/2017 Nikki Limon [address] L [place] Insurance:HUMANA GOLD [place] [facility] [place] [id number] Ville [id number]: Number: Repository [phone] [id number] (HP) Date:0342-66-62BG [address] [address] [id number]: 02/13/2017 Secondary NOT GIVENUNK [place] Insurance:SELF PAY [facility] Number: Effective Repository Date:2017-02-08 02/06/2017 Nikki L [id number] Primary Nikki L Ruy [place] Insurance:HUMANBassem GuzmányDOB: [address] [id number] Hospital [id number]: Number: Repository [phone] [id number] () Date:[id number] [address] [place] [id number]: 02/06/2017 Secondary NOT GIVENUNK Ruy Insurance:SELF PAY [facility] Number: Effective Repository Date:2017-02-06 01/25/2017 Nikki [id number] Primary Nikki [facility] Insurance:HUMANBassem GuzmányDOB: [address] MED[place]Policy [id number] Hospital [id number]: Number: Repository [phone] [id number] () Date:[id number] [address] [place] [id number]: 01/25/2017 Secondary NOT GIVENUNK [place] Insurance:SELF PAY [facility] Number: Effective Repository Date:2017-01-25
== END 2018-01-03 16:58 | disposition home or self-care (01) ==
LOC: ED 16:02
PROVIDERS: Emergency Provider Emergency Medicine; Family Provider Family Medicine Geriatric Medicine; PCP Family Medicine Geriatric Medicine
DX: S60.221A Contusion of right hand, initial encounter (principal); S20.211A Contusion of right front wall of thorax, initial encounter; S61.411A Laceration without foreign body of right hand, initial encounter; I48.91 Unspecified atrial fibrillation; I89.0 Lymphedema, not elsewhere classified; I25.10 Atherosclerotic heart disease of native coronary artery without angina pectoris; I10 Essential (primary) hypertension; E78.00 Pure hypercholesterolemia, unspecified; Z79.02 Long term (current) use of antithrombotics/antiplatelets; Z79.899 Other long term (current) drug therapy; E11.622 Type 2 diabetes mellitus with other skin ulcer; L97.822 Non-pressure chronic ulcer of other part of left lower leg with fat layer exposed; E11.22 Type 2 diabetes mellitus with diabetic chronic kidney disease; N17.9 Acute kidney failure, unspecified; R60.0 Localized edema; E11.51 Type 2 diabetes mellitus with diabetic peripheral angiopathy without gangrene; G35 Multiple sclerosis; W01.0XXA Fall on same level from slipping, tripping and stumbling without subsequent striking against object, initial encounter; Y93.89 Activity, other specified; Y92.89 Other specified places as the place of occurrence of the external cause; Y99.8 Other external cause status
CPT/HCPCS: 11042; 71101; 73080; 73130; 99285

== ENCOUNTER → 2018-01-14 15:00 | Outpatient (CLI) | payer MEDICARE, SELFPAY ==
[2018-01-10 11:05] VITALS: BMI 44.3
--- OUTSIDE RECORDS SUMMARY | 2018-03-02 21:27 | XMS RPT_ITS ---
:1945 Author Organization OHIP Support Name Relationship Address Phone FEMI ARREDONDO Unavailable Unavailable + ROBIN, MONIKA Unavailable [address] + [place] [address] R Unavailable Unavailable Unavailable FEMI VIZCARRA Unavailable Unavailable + ROBIN, MONIKA Unavailable [address] + [place] [address] R Unavailable Unavailable Unavailable FEMI VIZCARRA Unavailable Unavailable + ROBIN, MONIKA Unavailable [address] + [place] [address] R Unavailable Unavailable Unavailable FEMI VIZCARRA Unavailable Unavailable + ROBIN, MONIKA Unavailable [address] + [place] [address] R Unavailable Unavailable Unavailable FEMI VIZCARRA Unavailable Unavailable + ROBIN, MONIKA Unavailable [address] + [place] [address] R Unavailable Unavailable Unavailable FEMI VIZCARRA Unavailable Unavailable + ROBIN, MONIKA Unavailable [address] + [place] [address] R Unavailable Unavailable Unavailable FEMI VIZCARRA Unavailable Unavailable + ROBIN, MONIKA Unavailable [address] + [place] [address] R Unavailable Unavailable Unavailable FEMI VIZCARRA Unavailable Unavailable + ROBIN, MONIKA Unavailable [address] + [place] [address] R Unavailable Unavailable Unavailable FEMI VIZCARRA Unavailable Unavailable + ROBIN, MONIKA Unavailable [address] + [place] [address] R Unavailable Unavailable Unavailable FEMI VIZCARRA Unavailable Unavailable + ROBIN, MONIKA Unavailable [address] + [place] [address] R Unavailable Unavailable Unavailable FEMI VIZCARRA Unavailable Unavailable + ROBIN, MONIKA Unavailable [address] + [place] [address] R Unavailable Unavailable Unavailable FEMI VIZCARRA Unavailable Unavailable + ROBIN, MONIKA Unavailable [address] + [place] [address] R Unavailable Unavailable Unavailable FEMI VIZCARRA Unavailable Unavailable + ROBIN, MONIKA Unavailable [address] + [place] [address] R Unavailable Unavailable Unavailable FEMI VIZCARRA Unavailable Unavailable + ROBIN, MONIKA Unavailable [address] + [place] [address] R Unavailable Unavailable Unavailable FEMI VIZCARRA Unavailable Unavailable + ROBIN, MONIKA Unavailable [address] + [place] [address] R Unavailable Unavailable Unavailable FEMI VIZCARRA Unavailable Unavailable + Robin, Monika Unavailable [address] + [place] [address] R Unavailable Unavailable Unavailable FEMI VIZCARRA Unavailable Unavailable + Robin, Monika Unavailable [address] + [place] [address] R Unavailable Unavailable Unavailable FEMI VIZCARRA Unavailable Unavailable + Robin, Monika Unavailable [address] + [place] [address] R Unavailable Unavailable Unavailable FEMI VIZCARRA Unavailable Unavailable + Robin, Monika Unavailable [address] + [place] [address] R Unavailable Unavailable Unavailable FEMI VIZCARRA Unavailable Unavailable + Robin, Monika Unavailable [address] + [place] [address] R Unavailable Unavailable Unavailable FEMI VIZCARRA Unavailable Unavailable + Robin, Monika Unavailable [address] + [place] [address] R Unavailable Unavailable Unavailable FEMI VIZCARRA Unavailable Unavailable + Robin, Monika Unavailable [address] + [place] [address] R Unavailable Unavailable Unavailable Robin, Monika Unavailable [address] + [place] [address] R Unavailable Unavailable Unavailable Robin, Monika Unavailable [address] + [place] [address] R Unavailable Unavailable Unavailable Robin, Monika Unavailable [address] + [place] [address] R Unavailable Unavailable Unavailable Robin, Monika Unavailable [address] + [place] [address] R Unavailable Unavailable Unavailable Robin, Monika Unavailable [address] + [place] [address] R Unavailable Unavailable Unavailable Robin, Monika Unavailable [address] + [place] [address] R Unavailable Unavailable Unavailable Robin, Monika Unavailable [address] + [place] [address] R Unavailable Unavailable Unavailable ROBIN, MONIKA Unavailable [address] + [place] [address] R Unavailable Unavailable Unavailable ROBIN, MONIKA Unavailable [address] + [place] [address] R Unavailable Unavailable Unavailable ROBIN, MONIKA Unavailable [address] + [place] [address] R Unavailable Unavailable Unavailable ROBIN, MONIKA Unavailable [address] + [place] [address] R Unavailable Unavailable Unavailable ROBIN, MONIKA Unavailable [address] + [place] [address] R Unavailable Unavailable Unavailable ROBIN, MONIKA Unavailable [address] + [place] [address] R Unavailable Unavailable Unavailable ROBIN, MONIKA Unavailable [address] + [place] [address] R Unavailable Unavailable Unavailable ROBIN, MONIKA Unavailable [address] + [place] [address] R Unavailable Unavailable Unavailable ROBIN, MONIKA Unavailable [address] + [place] [address] R Unavailable Unavailable Unavailable ROBIN, MONIKA Unavailable [address] + [place] [address] R Unavailable Unavailable Unavailable ROBIN, MONIKA Unavailable [address] + [place] [address] R Unavailable Unavailable Unavailable ROBIN, MONIKA Unavailable [address] + [place] [address] R Unavailable Unavailable Unavailable ROBIN, MONIKA Unavailable [address] + [place] [address] R Unavailable Unavailable Unavailable ROBIN, MONIKA Unavailable [address] + [place] [address] R Unavailable Unavailable Unavailable ROBIN, MONIKA Unavailable [address] + [place] [address] R Unavailable Unavailable Unavailable ROBIN, MONIKA Unavailable [address] + [place] [address] R Unavailable Unavailable Unavailable ROBIN, MONIKA Unavailable [address] + [place] [address] R Unavailable Unavailable Unavailable ROBIN, MONIKA Unavailable [address] + [place] [address] R Unavailable Unavailable Unavailable ROBIN, MONIKA Unavailable Unavailable + [place] [address] R Unavailable Unavailable Unavailable ROBIN, MONIKA Unavailable Unavailable + [place] [address] R Unavailable Unavailable Unavailable ROBIN, MONIKA Unavailable Unavailable + [place] [address] R Unavailable Unavailable Unavailable ROBIN, MONIKA Unavailable Unavailable + [place] [address] R Unavailable Unavailable Unavailable ROBIN, MONIKA Unavailable Unavailable + [place] [address] R Unavailable Unavailable Unavailable ROBIN, MONIKA Unavailable Unavailable + [place] [address] R Unavailable Unavailable Unavailable ROBIN, MONIKA Unavailable Unavailable + [place] [address] R Unavailable Unavailable Unavailable ROBIN, MONIKA Unavailable Unavailable + [place] [address] R Unavailable Unavailable Unavailable ROBIN, MONIKA Unavailable . + [place] [address] R Unavailable Unavailable Unavailable R Unavailable Unavailable Unavailable DOHENY, BISHOP Unavailable [address] + [place] [address] PIERRY, MONIKA Unavailable . + [place] [address] R Unavailable Unavailable Unavailable DOHENY, BISHOP Unavailable [address] + [place] [address] PIERRY, MONIKA Unavailable Unavailable + R Unavailable Unavailable Unavailable ROBIN, MONIKA Unavailable . + [place] [address] R Unavailable Unavailable Unavailable ROBIN, MONIKA Unavailable Unavailable + [place] [address] R Unavailable Unavailable Unavailable DOHENY, BISHOP Unavailable [address] + [place] [address] PIERRY, MONIKA Unavailable Unavailable + R Unavailable Unavailable Unavailable DOHENY, BISHOP Unavailable [address] + [place] [address] PIERRY, MONIKA Unavailable Unavailable + R Unavailable Unavailable Unavailable ROBIN, MONIKA Unavailable . + [place] [address] R Unavailable Unavailable Unavailable R Unavailable Unavailable Unavailable DOHENY, BISHOP Unavailable [address] + [place] [address] PIERRY, MONIKA Unavailable Unavailable + R Unavailable Unavailable Unavailable DOHENY, BISHOP Unavailable [address] + [place] [address] PIERRY, MONIKA Unavailable Unavailable + R Unavailable Unavailable Unavailable DOHENY, BISHOP Unavailable [address] + [place] [address] PIERRY, MONIKA Unavailable Unavailable + R Unavailable Unavailable Unavailable DOHENY, BISHOP Unavailable [address] + [place] [address] PIERRY, MONIKA Unavailable Unavailable + R Unavailable Unavailable Unavailable DOHENY, BISHOP Unavailable [address] + [place] [address] PIERRY, MONIKA Unavailable Unavailable + R Unavailable Unavailable Unavailable DOHENY, BISHOP Unavailable [address] + [place] [address] PIERRY, MONIKA Unavailable Unavailable + R Unavailable Unavailable Unavailable DOHENY, BISHOP Unavailable [address] + [place] [address] PIERRY, MONIKA Unavailable Unavailable + R Unavailable Unavailable Unavailable DOHENY, BISHOP Unavailable [address] + [place] [address] PIERRY, MONIKA Unavailable Unavailable + R Unavailable Unavailable Unavailable DOHENDaryl, BISHOP Unavailable [address] + [place] [address] PIERRY, MONIKA Unavailable Unavailable + R Unavailable Unavailable Unavailable DOHENDaryl, BISHOP Unavailable [address] + [place] [address] PIERRY, MONIKA Unavailable Unavailable + R Unavailable Unavailable Unavailable DOHENY, BISHOP Unavailable [address] + [place] [address] PIERRY, MONIKA Unavailable Unavailable + R Unavailable Unavailable Unavailable DOHENY, BISHOP Unavailable [address] + [place] [address] PIERRY, MONIKA Unavailable Unavailable + R Unavailable Unavailable Unavailable DOHENY, BISHOP Unavailable [address] + [place] [address] R Unavailable Unavailable Unavailable DOHENY, BISHOP Unavailable [address] + [place] [address] R Unavailable Unavailable Unavailable DOHENY, BISHOP Unavailable [address] + [place] [address] R Unavailable Unavailable Unavailable BISHOP VIZCARRA Unavailable [address] + [place] [address] R Unavailable Unavailable Unavailable Care Team Providers Name Role Phone Eva Bear Attending Unavailable Eva Bear Referring Unavailable Salvador, Octaviano Chi Primary Care Unavailable Bayron Dutton Attending Unavailable Bayron Dutton Referring Unavailable Salvador, Octaviano Chi Primary Care Unavailable Salvador, Octaviano Chi Primary Care Unavailable Inocenciapong Oziel Admitting Unavailable Nicanor Hoyt Attending Unavailable AgyepongOziel Admitting Unavailable Agyepong Oziel Attending Unavailable Salvador, Octaviano Chi Primary Care Unavailable MarijagOziel Consulting Unavailable Salvador, Octaviano Chi Attending Unavailable Salvador, Octaviano Chi Primary Care Unavailable Salvador, Octaviano Chi Attending Unavailable Salvador, Octaviano Chi Primary Care Unavailable Salvador, Octaviano Chi Attending Unavailable Salvador, Octaviano Chi Referring Unavailable Salvador, Octaviano Chi Primary Care Unavailable Salvador, Octaviano Chi Attending Unavailable Salvador, Octaviano Chi Referring Unavailable Salvador, Octaviano Chi Primary Care Unavailable AgyepongOziel Admitting Unavailable Archieelfah, Ghasem Attending Unavailable Salvador, Octaviano Chi Primary Care Unavailable Elpidioah, Ghasem Consulting Unavailable Agyepong, Oziel Admitting Unavailable Nicanor Hoyt Attending Unavailable Salvador, Octaviano Chi Primary Care Unavailable Nicanor Hoyt Consulting Unavailable Agyepong Oziel Admitting Unavailable Nicanor Hoyt Attending Unavailable Salvador, Octavinao Chi Primary Care Unavailable Nicanor Hoyt Consulting Unavailable Agyepong, Oziel Admitting Unavailable Nicanor Hoyt Attending Unavailable Salvador, Octaviano Chi Primary Care Unavailable Nicanor Hoyt Consulting Unavailable Bayron Dutton Attending Unavailable Salvador, Octaviano Chi Primary Care Unavailable Lisa Hutton Attending Unavailable Salvador, Octaviano Chi Primary Care Unavailable BeltránGonzalo Attending Unavailable Salvador, Octaviano Chi Attending Unavailable [...] Ghasem Consulting Unavailable Hodan Cortes Attending Unavailable Hodan Cortes Referring Unavailable Salvador, Octaviano Chi Primary Care Unavailable Erasto Stuart Attending Unavailable Salvador, Octaviano Chi Referring Unavailable Ashelfah, Ghasem Admitting Unavailable Sementi, Leigh Ann Attending Unavailable Salvador, Octaviano Chi Primary Care Unavailable SemenTato diehle Consulting Unavailable Uriel Luna Attending Unavailable Salvador, Octaviano Chi Referring Unavailable Salvador, Octaviano Chi Primary Care Unavailable Kurtis Barajas Attending Unavailable Bayron Dutton Attending Unavailable Salvador, Octaviano Chi Primary Care Unavailable Hodan Cortes Attending Unavailable Salvador, Octaviano Chi Primary Care Unavailable Hodan Cortes Referring Unavailable Hodan Cortes Attending Unavailable Salvador, Octaviano Chi Primary Care Unavailable Lisa Hutton Attending Unavailable Uriel Luna Attending Unavailable Uriel Luna Referring Unavailable Salvador, Octaviano Chi Primary Care Unavailable Salvador, Octaviano Chi Attending Unavailable Salvador, Octaviano Chi Referring Unavailable Salvador, Octaviano Chi Primary Care Unavailable Kurtis Barajas Attending Unavailable Ashelfah, Ghasem Referring Unavailable Bayron Dutton Attending Unavailable Salvador, Octaviano Chi Primary Care Unavailable Uriel Luna Attending Unavailable Bayron Dutton Attending Unavailable Salvador, Octaviano Chi Primary Care Unavailable Onofre Boston Attending Unavailable Salvador, Octaviano Chi Referring Unavailable Salvador, Octaviano Chi Attending Unavailable Salvador, Octaviano Chi Primary Care Unavailable Bayron Dutton Attending Unavailable Salvador, Octaviano Chi Primary Care Unavailable Hodan Cortes Attending Unavailable Sebastian, Hodan Referring Unavailable Salvador, [...] Octaviano Chi Primary Care Unavailable Sebastian, Hodan Attending Unavailable Salvador, Octaviano Chi Primary [...] Unavailable Salvador, Octaviano Chi Primary Care Unavailable Elopperi, Douglas Consulting Unavailable Onofre Marina Attending Unavailable [...] Primary Care Unavailable Stevie, Preston Admitting Unavailable Tereletsky, Nicanor Attending Unavailable Stephanie Adalid Consulting Unavailable Stevie, Preston Admitting Unavailable Stevie, [...] Primary Care Unavailable Stephanie, Adalid Consulting Unavailable Nicanor Hoyt Consulting Unavailable SteviePreston Admitting Unavailable Nicanor Hoyt Attending Unavailable Salvador, Octaviano Chi Primary Care Unavailable Adalid Brown Consulting Unavailable Nicanor Hoyt Consulting Unavailable Femi Esposito Attending Unavailable Femi [...] TYPE CONDITION / CODE ATTENDING STATUS SOURCE 02/14/2018 Unknown E11.622 - Type 2 Bayron Dutton Active [facility] diabetes mellitus with Community other skin ulcer / Hospital E11.622(ICD-10) Repository 12/28/2017 Unknown 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, 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 / Community G50.0(ICD-10) Hospital Repository 12/25/2017 Unknown N39.0 - Urinary tract Salvador, Octaviano Chi Active [facility] infection, site not Community specified / Hospital N39.0(ICD-10) Repository 11/21/2017 Unknown L03.115 - Cellulitis Jopperi, Douglas Active [place] of right lower limb / Community L03.115(ICD-10) Hospital Repository 10/13/2017 Unknown D64.9 - Anemia, Salvador, Octaviano Chi Active [facility] unspecified / Community D64.9(ICD-10) Hospital Repository 10/05/2017 Unknown M25.519 - Pain in Salvador, Octaviano Chi Active [place] unspecified shoulder / Community M25.519(ICD-10) Hospital Repository 10/04/2017 Unknown N18.3 - Chronic kidney Hodan Cortes Active [place] disease, stage 3 Community (moderate) / Hospital N18.3(ICD-10) Repository 10/04/2017 Unknown R30.0 - Dysuria / Hodan Cortes Active [facility] R30.0(ICD-10) [facility] Hospital Repository 06/18/2017 Unknown R60.0 - Localized [place], Active [facility] edema / R60.0(ICD-10) [facility] Repository 06/15/2017 Unknown K59.00 - Constipation, Salvador, Octaviano Chi Active [facility] unspecified / Community K59.00(ICD-10) Hospital Repository 06/07/2017 Unknown N17.9 - Acute kidney SebastianHodan Active [place] failure, unspecified / Community N17.9(ICD-10) Hospital Repository 06/21/2017 Unknown R07.9 - Chest pain, Karl, [place] Active [facility] unspecified / Community R07.9(ICD-10) Hospital Repository 06/21/2017 Unknown R07.89 - Other chest Karl, Kurtis Active [facility] pain / R07.89(ICD-10) [facility] Hospital Repository 06/21/2017 Unknown I25.2 - 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, [place]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[facility] infarction / Community I25.2(ICD-10) Hospital Repository 05/21/2017 Unknown R94.31 - Abnormal Erasto Stuart Active [facility] electrocardiogram Community [ECG] [EKG] / Hospital R94.31(ICD-10) Repository 03/15/2017 Unknown E86.0 - Dehydration / Salvador, Octaviano Chi Active [facility] E86.0(ICD-10) [facility] Hospital Repository 03/05/2017 Unknown L03.119 - Cellulitis Salvador, Octaviano Chi Active [facility] of unspecified part of Community limb / L03.119(ICD-10) Hospital Repository PROCEDURES PROCEDURES No Procedure Records FoundRESULTS RESULTS DISCHARGE SUMMARY Observed: 02/20/2018 Status: F Source: [place] 9:55 PM [facility] REPOSITORY [facility] Medical Records Department [address] [place] [id number] Discharge Summary 02/20/18 2147 MR#: [id number] Acct: [id number] Name: LEVON ARREDONDORA Limon Rep #: [id number] : 1945 73 From: Nicanor Hoyt DO PCP: Salvador HATCH,Octaviano Logan Status: DIS IN Y Location: [facility] SW861-6 Discharge Date and Diagnosis Date of Admission: 02/16/18 Date of Discharge: 02/20/18 - Primary Discharge Diagnosis #1 severe sepsis secondary to acute cystitis from E. coli #2 cellulitis of the lower legs-presumed secondary to gram- positive bacteria #3 chronic kidney disease stage III secondary to type 2 diabetes #4 type 2 diabetes #5 paroxysmal atrial fibrillation #6 coronary artery disease-stable #7 acute cystitis secondary to E. coli #8 iron deficiency anemia-etiology unclear #9 vxfy-uiovdxg-hkcbikwn unclear at this point, suspect possible early dementia #10 obesity #11 hypertension #12 hyperlipidemia #13 acute diastolic congestive heart failure-EF 35% on last echocardiogram 2018 - Secondary Discharge Diagnosis Chronic Problems (Last Reviewed 02/17/18 @ 00:56 by Oziel Angel MD) Cognitive impairment (Chronic) patient is confused at times Iron deficiency anemia (Chronic) etiology unknown PVD (peripheral vascular disease) (Chronic) Controlled diabetes mellitus (Chronic) Edema, lower extremity (Chronic) Presence of stent in coronary artery (Chronic) PTCA/stent to CX; PTCA/Stent PTCA/stent to prox RCA 05/06; PTCA/LILY in mid to distal RCA 08/29/12 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) PTCA/stent to CX; PTCA/Stent PTCA/stent to prox RCA 05/06; PTCA/LILY in mid to distal RCA 08/29/12; CABG x2 ARREGUIN tp LAD and SVG to OM2 01/02/11 S/P CABG (coronary artery bypass graft) (Chronic 01/02/11) CABG x2 ARREGUIN tp LAD and SVG to OM2 01/02/11 Paroxysmal atrial fibrillation (Chronic) Hyperlipidemia (Chronic) Hypertension (Chronic) Hospital Course and Treatment Consultations 02/17/18 01:47 Consult: Onc/Wound/aligner barrel and receiver Routine Comment: Reason for Consult:: Bilateral leg wound Operations: None Procedures: None Summary of Care Provided: The patient is a 73 year old F who was seen in the emergency room at [facility] with a chief complaint of left leg redness, and evaluation in the ER revealed her temp to be 100.4, there was significant erythema of the left leg noted, labs revealed white blood cell count of 19.6, hemoglobin was 9.4, creatinine was 1.83, lactic acid was elevated at 3.6. Urinalysis revealed +2 leukocytes and positive nitrites, chest x-ray revealed no acute process. Patient was given IV fluids, she was given IV antibiotics, she was felt to have severe sepsis and she was admitted to [facility] 3. Patient was seen in consultation by the wound care nurse, she was seen by PT and OT, and the patient's urinalysis was positive for E. coli. Patient remained moderately confused and she was felt to have possible dementia but she consented to admission to a retirement facility for short-term care. On 02/19/18, patient became short of breath and it was noted that she had what appeared to be congestive heart failure which was believed to be diastolic congestive heart failure. Patient was given oral Lasix and her chest x-ray was repeated on 02/20/18 and showed resolution of her CHF. On 02/20/18, patient was seen and examined: On examination she appeared in good health and spirits. Vital signs as documented. Skin warm and dry and without overt rashes. Neck without JVD. Lungs clear. Heart exam notable for regular rhythm, normal sounds and absence of murmurs, rubs or gallops. Abdomen unremarkable and without evidence of organomegaly, masses, or abdominal aortic enlargement. Extremities-there is evidence of chronic edematous changes over both lower legs along with stasis changes bilaterally. Neuro: Cranial nerves II through XII are grossly intact, no focal motor deficits were noted, sensation to light touch and pinprick is intact. Psych: Patient is alert and mildly confused, she does not appear anxious or depressed On 02/20/18, patient was seen and examined and felt to be stable for discharge to a retirement facility for further care. - Physical Exam Vital Signs Temp Pulse Resp BP Pulse Ox 98.2 F 87 16 160/74 H 96 02/20/18 13:45 02/20/18 13:45 02/20/18 13:45 02/20/18 13:45 02/20/18 13:45 Oxygen Flow Rate (L/min) 2 Oxygen Delivery Method Nasal Cannula Weight: 97.2 kg Body Mass Index (BMI) 41.8 Finger Stick Blood Glucose 187 Intake and Output for Last 24 Hours Intake Total 250 / 250 438 / 438 640 / 640 Output Total 500 / 500 5650 / 5650 Balance 250 / 250 -62 / -62 -5010 / -5010 Microbiology Past 72 Hours 02/16/18 21:26 Blood Culture - Preliminary Blood Culture (Wb) - Anticubital Left No growth in 48 hours. Laboratory Tests Past 24 Hrs WBC 11.7 H RBC 3.75 L Hgb 8.3 L Hct 29.7 L MCV 79.2 L MCH 22.1 L MCHC 27.9 L RDW 18.1 H POC Glucose POC Glucose 118 H 101 129 H Home Medications: Medications to take at Discharge Docusate Sodium [Colace] 100 mg PO DAILY PRN 05/10/17 Pantoprazole Sodium [Protonix] 40 mg PO DAILY 05/10/17 Rivaroxaban [Xarelto] 15 mg PO DAILY 05/10/17 metoprolol tartrate 50 mg tablet 50 mg PO BID #180 tab 09/18/17 amiodarone 200 mg tablet 200 mg PO DAILY #90 tab 10/10/17 Duloxetine HCl 60 mg PO DAILY 10/24/17 Glucerna Shake 120 ml PO 4X/DAY liquid 10/27/17 Furosemide 40 mg PO DAILY #1 tab 12/21/17 Potassium Chloride [Klor-Con] 20 meq PO DAILY #1 packet 12/21/17 magnesium 400 mg (as magnesium oxide) tablet 400 mg PO BID #180 tab 01/22/18 Acetaminophen [Tylenol Tablet] 650 mg PO Q4H PRN PRN tablet 02/20/18 Cephalexin [Keflex] 500 mg PO Q8 #15 capsule 02/20/18 Ferrous Sulfate 325 mg PO BIDCM #1 tablet 02/20/18 Gabapentin [Neurontin] 300 mg PO BID #1 capsule 02/20/18 Nystatin Powder [Mycostatin Powder] 1 applic TOPICAL TID bottle 02/20/18 Potassium Chloride [K-Dur] 20 meq PO DAILY #1 tablet 02/20/18 Following Prescrptions Were Given to Patient: Cephalexin [Keflex] 500 mg PO Q8 #15 capsule Potassium Chloride [K-Dur] 20 meq PO DAILY #1 tablet Ferrous Sulfate 325 mg PO BIDCM #1 tablet Gabapentin [Neurontin] 300 mg PO BID #1 capsule Primary Care Physician: Octaviano Franco Chi, MD [Primary Care Provider] - Disposition: Jail facility Minutes spent on discharge:: 31 Patient Condition:: Stable Medical Necessity - Tobacco Use Smoking Status: Former smoker Meaningful Use Info Meaningful Use Diagnoses (Choose all that apply): None applicable Code Visit Inpatient E AND M: [id number] Disch Hosp 02/20/182154 <Electronically signed by Nicanor Hoyt DO> Date Nicanor Hoyt DO Cosigner Signature (if applicable): Date CC: Nicanor Hoyt DO; Octaviano Franco MD Signed BEDSIDE GLUCOSE Collected: 02/20/2018 Status: F Source: [place] 11:56 AM [facility] REPOSITORY TYPE CODE TESTS RESULT OUT OF REFERENCE UNITS RANGE LAB L501.080 70-110 mg/dL High BEDSIDE GLU 118 Result Comment: MANAGEMENT OF PATIENT CARE PER NURSING PROTOCOL Performed By: #### L501.080 #### [facility] Laboratory Point of Care [address] [place], [place] [address] TRANSFER TO EXTENDED Observed: 02/20/2018 Status: F Source: [place] [facility] 11:05 AM [facility] REPOSITORY [facility] Medical Records Department [address] [place] [address] Transfer to Extended Care MR#: [id number] Acct: [id number] Name: NIKKI VIZCARRA Braxton Rep #: [id number] : 1945 73 From: Nicanor Hoyt DO PCP: Salvador HATCH,Octaviano Logan Status: ADM IN NIKKI VIZCARRA (Patient) (Health Ins. Claim No.) (Day of Discharge to Facility) Certification of patient admission REQUIRED AT TIME OF ADMISSION. I CERTIFY THAT POST-HOSPITAL ECF SERVICES ARE REQUIRED TO BE GIVEN ON AN IN-PATIENT BASIS BECAUSE OF THE ABOVE NAMED PATIENT'S NEED FOR PRISON CARE ON A CONTINUING BASIS FOR THE CONDITION(S) FOR WHICH HE/SHE WAS RECEIVING IN-PATIENT HOSPITAL SERVICES PRIOR TO HIS/HER TRANSFER TO THE F. 02/20/18 1105 <Electronically signed by Nicanor Hoyt DO> Date Nicanor Hoyt DO - Diet 02/17/18 01:47 Diet: Calorie Controlled Type of Dietary Supplement:: Glucerna 1.5 emilio Is pt able to select menu?: Yes Diet Comments: No concentrated sweets, BREAKFAST 8, LUNCH NOON, DINNER 5 PLEASE How many daily calories?: 1800 calorie - Routine Orders/Code Status O2 Liters per Minute: 2 O2 Frequency: Continuous Keep PO Greater than or Equal to (%): 90 Routine Lab Work: CBC - in 5 days, BMP - in 5 days Code Status: Full Code - Wound(s) LLE Wound Type: EDEMA W/REDNESS left upper arm Wound Type: Skin Tear right forearm Wound Type: Abrasion top of bright foot Wound Type: Abrasion RT FOOT Wound Type: Stasis Ulcer Dressing Change: Adaptic left lateral lower leg Wound Type: Stasis Ulcer Dressing Change: Adaptic - Therapies Weight Bearing: Weight bearing as tolerated - with walker Physical Therapy: Eval and Treat Occupational Therapy: Eval and Treat - Problem/Diagnosis (1) Diastolic CHF Status: Acute Current Visit: Yes (2) Severe sepsis Status: Acute Current Visit: Yes (3) Acute cystitis Status: Acute Comment: E. 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 Status: Chronic Comment: PTCA/stent to CX; PTCA/Stent PTCA/stent to prox RCA 05/06; PTCA/LILY in mid to distal RCA 08/29/12; CABG x2 ARREGUIN tp LAD and SVG to OM2 01/02/11 Current Visit: No (7) Paroxysmal atrial fibrillation Status: Chronic Current Visit: No (8) Hypertension Status: Chronic Current Visit: No (9) Cognitive impairment Status: Chronic Comment: patient is confused at times Current Visit: Yes (10) Iron deficiency anemia Status: Chronic Comment: etiology unknown Current Visit: Yes - Allergies/Procedures Done in Hospital Allergies/Adverse Reactions: Allergies ciprofloxacin [From Cipro] Allergy (Verified 02/16/18 21:16) Hives ciprofloxacin HCl [From Cipro] Allergy (Verified 02/16/18 21:16) Hives Latex, Natural Rubber Allergy (Verified 02/16/18 21:16) Rash Penicillins [PCN] Allergy (Verified 02/16/18 21:16) Hives codeine Adverse Reaction (Unknown, Verified 02/16/18 21:16) Unknown adhesive tape Adverse Reaction (Verified 02/16/18 21:16) Rash Procedures: None - Type of Care/Length of Stay Estimated LOS: Convalescent Care Less Than 30 days Type of Care Needed: Skilled Rehab Potential: Good Prognosis: Good - Additional Orders/Day of Discharge H AND P will serve as current which was dated: 02/16/18 Day of Discharge: 02/20/18 - Dietary and Speech Recommendations Dietitian Recommendations/Changes: Will d/c ONS medpass as not indicated at this time. Will decrease glucerna shake (providing as Glucerna 1.5 for enteral nutrition) to 120 cc w/ meals per pt preference. Rec diet change to 1800 emilio Cardiac/SG d/t pmhx - Follow Up Care Primary Care Physician: Octaviano Franco Chi, MD [Primary Care Provider] - 02/20/18 1105 <Electronically signed by Nicanor Hoyt DO> Date Nicanor Hoyt DO CC: Octaviano Franco MD Signed BEDSIDE GLUCOSE Collected: 02/20/2018 Status: F Source: [place] 6:42 AM [facility] REPOSITORY TYPE CODE TESTS RESULT OUT OF RANGE REFERENCE UNITS LAB L501.080 70-110 mg/dL Normal BEDSIDE GLU 101 Result Comment: MANAGEMENT OF PATIENT CARE PER NURSING PROTOCOL Performed By: #### L501.080 #### [facility] [place] [address] CBC W/DIFF, AUTOMATED Collected: 02/20/2018 Status: F Source: [place] 5:50 AM [facility] REPOSITORY TYPE CODE TESTS RESULT OUT OF RANGE REFERENCE UNITS LAB L100.1000 4.4-11.0 K/mm3 High WBC 11.7 LAB L100.1200 4.2-5.4 M/mm3 Low RBC 3.75 LAB L100.1300 12.0-15.0 g/dl Low HGB 8.3 LAB L100.1400 37-47 % Low HCT 29.7 LAB L100.1500 81-99 fL Low MCV 79.2 LAB L100.1600 27.0-32.0 pg Low MCH 22.1 LAB L100.1700 32-36 g/gl Low MCHC 27.9 LAB L100.1810 11.6-14.6 % High RDW CV 18.1 LAB L100.1820 35.1-43.9 fl High RDW SD 48.9 LAB L100.1900 150-450 K/mm3 Normal PLT 280 LAB L100.2000 6.2-12.0 fl Normal MPV 9.6 LAB L100.2100 47-70 % High NEUT% 79.9 LAB L100.2200 19-41 % Low LY% 10.0 LAB L100.2300 0-10 % Normal MONO% 7.8 LAB L100.2400 0-5 % Normal EO% 1.3 LAB L100.2500 0-1 % Normal BASO% 0.3 LAB L100.2550 0.0-0.9 % Normal IM GRAN % 0.700 Result Comment: IG% - Immature Granulocytes (promyelocytes, myelocytes and metamyelocytes) > 1% indicates that a LEFT SHIFT is Present. LAB L100.2620 2.0-7.7 X10 3/uL High Absolute Neut 9.4 LAB L100.2720 0.83-4.51 X10 3/ul Normal Absolute Lymph 1.17 Performed By: #### L100.0100 #### [facility] [address] [place], [place], [address] BASIC METABOLIC Collected: 02/20/2018 Status: F Source: [place] [facility] (BMP) 5:50 AM [facility] REPOSITORY TYPE CODE TESTS RESULT OUT OF RANGE REFERENCE UNITS LAB L501.0100 74-106 mg/dL High GLU 109 Result Comment: Fasting Glucose result from 100 to 125 mg/dL suggests IMPAIRED HOMEOSTASIS per A.D.A. criteria. Please note revised GLUCOSE reference range effective 2017. LAB L501.1000 7-18 mg/dL Normal BUN 14 LAB L501.1100 0.55-1.02 mg/dL High CREAT,SERUM 1.05 Result Comment: The validity of the calculated GFR AND GFRAA in patients over 70 years has not been determined. Clinical correlation is essential. LAB L501.1110 >60 mL/min Low EST GFR 54 Result Comment: Non- GFR Calc LAB L501.1115 >60 mL/min Normal EST GFR - AA 66 Result Comment: GFR Calc LAB L501.1255 ml/min Normal Estimated CRCL 33.76 LAB L501.1300 10-20 RATIO Normal BUN/CRE 13.3 LAB L501.2200 8.5-10 mg/dL Normal .1 CA 8.9 LAB L501.5300 136-14 mmol/L Normal 5 NA 143 LAB L501.5600 3.5-5. mmol/L Low 1 K 3.2 LAB L501.5900 98-107 mmol/L Normal CL 102 LAB L501.6100 21.0-3 mmol/L High 2.0 CO2 34.0 LAB L501.6200 5-15 Normal GAP 7 Performed By: #### L500.2500 #### [facility] [address] [place], [address] CHEST 1 VIEW Observed: 02/20/2018 Status: F Source: [place] (PORTABLE) 12:00 AM [facility] REPOSITORY [facility] Imaging Services [address] [place] [address] Chest 1 View (Portable) MR#: [id number] Acct: [id number] Name: NIKKI VIZCARRA Rep #: [id number] : 1945 F 73 From: Angelito Montenegro PCP: Salvador HATCH,Octaviano [facility] Status: ADM IN Study: Chest 1 View (Portable) Date of Exam: 02/20/18 Exam# [id number] Ordering Dr: Nicanor Hoyt DO STUDY: X-RAY CHEST REASON FOR EXAM: Female, 73 years old. Shortness of breath TECHNIQUE: Frontal view COMPARISON: February 19, 2018 FINDINGS: The lungs are clear and expanded. There is no demonstrated pleural abnormality. Normal size heart. There has been open heart surgery. Normal visualized pulmonary arteries. Normal visualized aortic arch and descending thoracic aorta. Normal visualized thoracic spine. Normal visualized ribs, clavicles, and shoulders. There is no demonstrated abnormality of the visualized soft tissue structures of the upper abdomen. RAD/Chest 1 View (Portable) IMPRESSION: There is NO acute cardiopulmonary abnormality. 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 [address] BEDSIDE GLUCOSE Collected: 02/19/2018 Status: F Source: [place] 5:03 PM [facility] REPOSITORY TYPE CODE TESTS RESULT OUT OF REFERENCE UNITS RANGE LAB L501.080 70-110 mg/dL High BEDSIDE GLU 115 Result Comment: MANAGEMENT OF PATIENT CARE PER NURSING PROTOCOL Performed By: #### L501.080 #### [facility] Point of Care [address] [place] [address] 12 LEAD ELECTROCARDIOGRAM Observed: 02/19/2018 Status: F Source: [place] 4:44 PM [facility] REPOSITORY [facility] Cardiovascular Services [address] [place] [address] 12 Lead EKG 02/16/18 2139 MR#: [id number] Acct: [id number] Name: NIKKI VIZCARRA Rep #: [id number] : 1945 73 From: Kurtis Barajas MD Attending Dr: Nicanor Hoyt DO Status: ADM IN Ordering Dr: Chavez Coelho MD Date: 02/16/18 Location: [facility] Sex: F C Admitted: 02/16/18 Test Reason : CONFUSION Blood Pressure : / mmHG Vent. Rate : 094 BPM Atrial Rate : 094 BPM P-R Int : 216 ms QRS Dur : 078 ms QT Int : 338 ms P-R-T Axes : 019 011 129 degrees QTc Int : 422 ms Sinus rhythm with 1st degree A-V block Marked ST abnormality, possible lateral subendocardial injury Abnormal ECG Confirmed by KURTIS BARAJAS MD ([id number]), magazine editor SHAHNAZ MARINA ([id number]) on 02/19/2018 4:44:16 PM Referred By: TL Confirmed By:KURTIS BARAJAS MD 02/19/18 1644 Date Kurtis Barajas MD CC: Chavez Coelho MD; Nicanor Hoyt DO; Octaviano Franco MD Signed BNP,B-TYPE NATRIURETIC Collected: 02/19/2018 Status: F Source: [place] 2:38 PM [facility] REPOSITORY TYPE CODE TESTS RESULT OUT OF RANGE REFERENCE UNITS LAB L503.6620 0-100 pg/mL High B-TYPE 1453.0 HERON PEP Performed By: #### L503.6620 #### [facility] [address] [place], [address] BEDSIDE GLUCOSE Collected: 02/19/2018 Status: F Source: [place] 12:05 PM [facility] REPOSITORY TYPE CODE TESTS RESULT OUT OF REFERENCE UNITS RANGE LAB L501.080 70-110 mg/dL High BEDSIDE GLU 168 Result Comment: MANAGEMENT OF PATIENT CARE PER NURSING PROTOCOL Performed By: #### L501.080 #### [facility] Point of Care [address] [place] [address] CHEST 1 VIEW Observed: 02/19/2018 Status: F Source: [place] (PORTABLE) 7:39 AM [facility] REPOSITORY [facility] Imaging Services [address] [place] [address] Chest 1 View (Portable) MR#: [id number] Acct: [id number] Name: NIKKI VIZCARRA Rep #: [id number] : 1945 F 73 From: Milo Hughes MD PCP: Salvador HATCH,Octaviano Logan Status: ADM IN Study: Chest 1 View (Portable) Date of Exam: 02/19/18 Exam# [id number] Ordering Dr: Nicanor Hoyt DO STUDY: X-RAY CHEST REASON FOR EXAM: Female, 73 years old. Shortness of breath. Chest pain. TECHNIQUE: Single AP portable view of the chest. COMPARISON: Comparison is made with prior study dated February 16, 2018. FINDINGS: EKG electrodes are seen. There now is evidence of vascular congestion and mild CHF. Increased markings at both lung bases with areas of confluence. This may represent bibasilar atelectasis. Sternal cerclage wires and vascular clips are present from a prior sternotomy and coronary artery bypass graft procedure (CABG). Myocardial mainly. Normal mediastinum and alee. Normal visualized pulmonary arteries. There is atherosclerotic calcification of the aortic arch with tortuosity. Normal visualized thoracic spine. There is degenerative osteoarthritis of the bilateral shoulders. Hiatal hernia. RAD/Chest 1 View (Portable) IMPRESSION: Findings in keeping with CHF and bibasilar atelectasis. 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 These values should be used with clinical judgement in examining the patient's clinical picture for diagnosis. To establish a diagnosis of NH versus myocardial injury, there must be a demonstrated rise and/or fall in the troponin values, in addition to ischemic symptoms, EKG changes, new regional wall motion abnormality, and/or angiographical evidence. PLEASE NOTE: REFERENCE RANGES EDITED 17 Performed By: #### L501.4010 #### [facility] [address] [place], [address] BEDSIDE GLUCOSE Collected: 02/19/2018 Status: F Source: [place] 5:28 AM [facility] REPOSITORY TYPE CODE TESTS RESULT OUT OF REFERENCE UNITS RANGE LAB L501.080 70-110 mg/dL High BEDSIDE GLU 141 Result Comment: MANAGEMENT OF PATIENT CARE PER NURSING PROTOCOL Performed By: #### L501.080 #### [facility] Point of Care [address] [facility] [place] [address] CBC W/DIFF, AUTOMATED Collected: 02/19/2018 Status: F Source: [place] 4:00 AM [facility] REPOSITORY TYPE CODE TESTS RESULT OUT OF RANGE REFERENCE UNITS LAB L100.1000 4.4-11.0 K/mm3 High WBC 15.0 LAB L100.1200 4.2-5.4 M/mm3 Low RBC 3.62 LAB L100.1300 12.0-15.0 g/dl Low HGB 8.3 LAB L100.1400 37-47 % Low HCT 28.6 LAB L100.1500 81-99 fL Low MCV 79.0 LAB L100.1600 27.0-32.0 pg Low MCH 22.9 LAB L100.1700 32-36 g/gl Low MCHC 29.0 LAB L100.1810 11.6-14.6 % High RDW CV 17.8 LAB L100.1820 35.1-43.9 fl High RDW SD 48.9 LAB L100.1900 150-450 K/mm3 Normal PLT 256 LAB L100.2000 6.2-12.0 fl Normal MPV 10.0 LAB L100.2100 47-70 % High NEUT% 86.7 LAB L100.2200 19-41 % Low LY% 5.3 LAB L100.2300 0-10 % Normal MONO% 6.5 LAB L100.2400 0-5 % Normal EO% 0.3 LAB L100.2500 0-1 % Normal BASO% 0.3 LAB L100.2550 0.0-0.9 % Normal IM GRAN % 0.900 Result Comment: IG% - Immature Granulocytes (promyelocytes, myelocytes and metamyelocytes) > 1% indicates that a LEFT SHIFT is Present. LAB L100.2620 2.0-7.7 X10 3/uL High Absolute Neut 13.0 LAB L100.2720 0.83-4.51 X10 3/ul Low Absolute Lymph 0.80 Performed By: #### L100.0100 #### [facility] [address] [facility] [place], [place], [id number] BLOOD GASES BY CPS Collected: 02/19/2018 Status: F Source: [place] 1:19 AM [facility] REPOSITORY TYPE CODE TESTS RESULT OUT OF RANGE REFERENCE UNITS LAB L9000.9990 Normal BLD GAS TYPE ART LAB L9001.1000 Normal SITE L Radial LAB L9001.1010 Normal KELSIE TEST POS LAB L9001.1050 O2 Normal Delivery Dev NRB Mask LAB L9001.1055 /min Normal LPM 15.0 LAB L9001.1104 Normal Results To HOSP MD LAB L9001.1105 Normal Time Given 112 LAB L9001.1110 7.35-7.45 pH Normal - I-STAT 7.36 LAB L9001.1210 35-45 mmHg High pCO2 - ISTAT 48.6 LAB L9001.1310 75-100 mmHG High PO2 I-STAT 169 LAB L9001.2300 22-26 mmol/L High HCO3 ISTAT 27.4 LAB L9001.2400 -2 to +2 mmol/L BE Normal ISTAT 2 LAB L9001.2415 mmol/L Normal TOTAL CO2 29 ISTAT LAB L9001.2425 95-99 % Normal SO2 ISTAT 99 Performed By: #### L9000.0800 #### [facility] Point of Care [address] [facility] [place] [address] CBC W/DIFF, AUTOMATED Collected: 02/19/2018 Status: F Source: [place] 1:12 AM [facility] REPOSITORY TYPE CODE TESTS RESULT OUT OF RANGE REFERENCE UNITS LAB L100.1000 4.4-11.0 K/mm3 Normal WBC 10.7 LAB L100.1200 4.2-5.4 M/mm3 Low RBC 4.04 LAB L100.1300 12.0-15.0 g/dl Low HGB 9.2 LAB L100.1400 37-47 % Low HCT 32.1 LAB L100.1500 81-99 fL Low MCV 79.5 LAB L100.1600 27.0-32.0 pg Low MCH 22.8 LAB L100.1700 32-36 g/gl Low MCHC 28.7 LAB L100.1810 11.6-14.6 % High RDW CV 17.8 LAB L100.1820 35.1-43.9 fl High RDW SD 49.9 LAB L100.1900 150-450 K/mm3 Normal PLT 281 LAB L100.2000 6.2-12.0 fl Normal MPV 10.2 LAB L100.2100 47-70 % High NEUT% 75.5 LAB L100.2200 19-41 % Low LY% 13.4 LAB L100.2300 0-10 % Normal MONO% 7.6 LAB L100.2400 0-5 % Normal EO% 1.4 LAB L100.2500 0-1 % Normal BASO% 0.6 LAB L100.2550 0.0-0.9 % High IM GRAN % 1.500 Result Comment: IG% - Immature Granulocytes (promyelocytes, myelocytes and metamyelocytes) > 1% indicates that a LEFT SHIFT is Present. LAB L100.2620 2.0-7.7 X10 3/uL High Absolute Neut 8.1 LAB L100.2720 0.83-4.51 X10 3/ul Normal Absolute Lymph 1.44 Performed By: #### L100.0100, L500.2500, L501.4010 #### [facility] [address] [place], [place], [address] BASIC METABOLIC Collected: 02/19/2018 Status: F Source: [place] PROFILE ([facility]) 1:12 AM [facility] REPOSITORY Order Comment: 'TROP' Serial specimen #1, #2 or #3: 1 TYPE CODE TESTS RESULT OUT OF RANGE REFERENCE UNITS LAB L501.0100 74-106 mg/dL High GLU 169 Result Comment: Fasting Glucose result greater than or equal to 126 mg/dL suggests DIABETES MELLITUS per A.D.A. criteria. Please note revised GLUCOSE reference range effective 2017. LAB L501.1000 7-18 mg/dL High BUN 19 LAB L501.1100 0.55-1.02 mg/dL High CREAT,SERUM 1.37 Result Comment: The validity of the calculated GFR AND GFRAA in patients over 70 years has not been determined. Clinical correlation is essential. LAB L501.1110 >60 mL/min Low EST GFR 40 Result Comment: Non- GFR Calc LAB L501.1115 >60 mL/min Low EST GFR - AA 49 Result Comment: GFR Calc LAB L501.1255 ml/min Normal Estimated CRCL 25.88 LAB L501.1300 10-20 RATIO Normal BUN/CRE 13.9 LAB L501.2200 8.5-10 mg/dL Normal .1 CA 8.9 LAB L501.5300 136-14 mmol/L Normal 5 NA 141 LAB L501.5600 3.5-5. mmol/L Normal 1 K 3.8 LAB L501.5900 98-107 mmol/L Normal CL 107 LAB L501.6100 21.0-3 mmol/L Normal 2.0 CO2 27.0 LAB L501.6200 5-15 Normal GAP 7 Performed By: #### L100.0100, L500.2500, L501.4010 #### [facility] [address] [place], [address] TROPONIN-I Collected: 02/19/2018 Status: F Source: [place] 1:12 AM [facility] REPOSITORY Order Comment: 'TROP' Serial specimen #1, #2 or #3: 1 TYPE CODE TESTS RESULT OUT OF RANGE REFERENCE UNITS LAB L501.4010 <0.045 ng/mL Normal 0.032 TROPONIN-I Result Comment: TROPONIN-I EXPECTED VALUES <0.045 Negative 0.045 - 0.590 Consistent with Cardiac Damage > OR = 0.600 Critical Value Not every elevated troponin is indicative of NH. These values should be used with clinical judgement in examining the patient's clinical picture for diagnosis. To establish a diagnosis of NH versus myocardial injury, there must be a demonstrated rise and/or fall in the troponin values, in addition to ischemic symptoms, EKG changes, new regional wall motion abnormality, and/or angiographical evidence. PLEASE NOTE: REFERENCE RANGES EDITED 17 Performed By: #### L100.0100, L500.2500, L501.4010 #### [facility] [address] [place], [address] BEDSIDE GLUCOSE Collected: 02/19/2018 Status: F Source: [place] 12:47 AM [facility] REPOSITORY TYPE CODE TESTS RESULT OUT OF REFERENCE UNITS RANGE LAB L501.080 70-110 mg/dL High BEDSIDE GLU 172 Result Comment: MANAGEMENT OF PATIENT CARE PER NURSING PROTOCOL Performed By: #### L501.080 #### [facility] Point of Care [address] [place] [address] BEDSIDE GLUCOSE Collected: 02/18/2018 Status: F Source: [place] 9:53 PM [facility] REPOSITORY TYPE CODE TESTS RESULT OUT OF REFERENCE UNITS RANGE LAB L501.080 70-110 mg/dL High BEDSIDE GLU 138 Result Comment: MANAGEMENT OF PATIENT CARE PER NURSING PROTOCOL Performed By: #### L501.080 #### [facility] Point of Care [address] [place] [address] BEDSIDE GLUCOSE Collected: 02/18/2018 Status: F Source: [place] 4:15 PM [facility] REPOSITORY TYPE CODE TESTS RESULT OUT OF REFERENCE UNITS RANGE LAB L501.080 70-110 mg/dL High BEDSIDE GLU 122 Result Comment: MANAGEMENT OF PATIENT CARE PER NURSING PROTOCOL Performed By: #### L501.080 #### [facility] Point of Care [address] [place] [address] BEDSIDE GLUCOSE Collected: 02/18/2018 Status: F Source: [place] 10:51 AM [facility] REPOSITORY TYPE CODE TESTS RESULT OUT OF REFERENCE UNITS RANGE LAB L501.080 70-110 mg/dL High BEDSIDE GLU 164 Result Comment: MANAGEMENT OF PATIENT CARE PER NURSING PROTOCOL Performed By: #### L501.080 #### [facility] Point of Care [address] [place] [address] BEDSIDE GLUCOSE Collected: 02/18/2018 Status: F Source: [place] 6:50 AM [facility] REPOSITORY TYPE CODE TESTS RESULT OUT OF REFERENCE UNITS RANGE LAB L501.080 70-110 mg/dL High BEDSIDE GLU 129 Result Comment: MANAGEMENT OF PATIENT CARE PER NURSING PROTOCOL Performed By: #### L501.080 #### [facility] Point of Care [address] [place] [address] BASIC METABOLIC Collected: 02/18/2018 Status: F Source: [place] PROFILE (BMP) 5:40 AM [facility] REPOSITORY TYPE CODE TESTS RESULT OUT OF RANGE REFERENCE UNITS LAB L501.0100 74-106 mg/dL Normal GLU 105 Result Comment: Fasting Glucose result from 100 to 125 mg/dL suggests IMPAIRED HOMEOSTASIS per A.D.A. criteria. Please note revised GLUCOSE reference range effective 2017. LAB L501.1000 7-18 mg/dL High BUN 20 LAB L501.1100 0.55-1.02 mg/dL High CREAT,SERUM 1.30 Result Comment: The validity of the calculated GFR AND GFRAA in patients over 70 years has not been determined. Clinical correlation is essential. LAB L501.1110 >60 mL/min Low EST GFR 43 Result Comment: Non- GFR Calc LAB L501.1115 >60 mL/min Low EST GFR - AA 52 Result Comment: GFR Calc LAB L501.1255 ml/min Normal Estimated CRCL 27.27 LAB L501.1300 10-20 RATIO Normal BUN/CRE 15.4 LAB L501.2200 8.5-10 mg/dL Low .1 CA 8.4 LAB L501.5300 136-14 mmol/L High 5 NA 147 LAB L501.5600 3.5-5. mmol/L Normal 1 K 3.6 LAB L501.5900 98-107 mmol/L High CL 109 LAB L501.6100 21.0-3 mmol/L Normal 2.0 CO2 28.0 LAB L501.6200 5-15 Normal GAP 10 Performed By: #### L500.2500 #### [facility] [address] [place], [address] CBC W/DIFF, AUTOMATED Collected: 02/18/2018 Status: F Source: [place] 5:40 AM [facility] REPOSITORY TYPE CODE TESTS RESULT OUT OF RANGE REFERENCE UNITS LAB L100.1000 4.4-11.0 K/mm3 High WBC 12.6 LAB L100.1200 4.2-5.4 M/mm3 Low RBC 3.43 LAB L100.1300 12.0-15.0 g/dl Low HGB 7.6 LAB L100.1400 37-47 % Low HCT 27.3 LAB L100.1500 81-99 fL Low MCV 79.6 LAB L100.1600 27.0-32.0 pg Low MCH 22.2 LAB L100.1700 32-36 g/gl Low MCHC 27.8 LAB L100.1810 11.6-14.6 % High RDW CV 17.6 LAB L100.1820 35.1-43.9 fl High RDW SD 48.3 LAB L100.1900 150-450 K/mm3 Normal PLT 248 LAB L100.2000 6.2-12.0 fl Normal MPV 9.8 LAB L100.2100 47-70 % High NEUT% 79.2 LAB L100.2200 19-41 % Low LY% 11.6 LAB L100.2300 0-10 % Normal MONO% 7.5 LAB L100.2400 0-5 % Normal EO% 1.3 LAB L100.2500 0-1 % Normal BASO% 0.2 LAB L100.2550 0.0-0.9 % Normal IM GRAN % 0.200 Result Comment: IG% - Immature Granulocytes (promyelocytes, myelocytes and metamyelocytes) > 1% indicates that a LEFT SHIFT is Present. LAB L100.2620 2.0-7.7 X10 3/uL High Absolute Neut 10.0 LAB L100.2720 0.83-4.51 X10 3/ul Normal Absolute Lymph 1.45 Performed By: #### L100.0100 #### [facility] [address] [place], [address] BEDSIDE GLUCOSE Collected: 02/17/2018 Status: F Source: [place] 9:53 PM [facility] REPOSITORY TYPE CODE TESTS RESULT OUT OF REFERENCE UNITS RANGE LAB L501.080 70-110 mg/dL High BEDSIDE GLU 134 Result Comment: MANAGEMENT OF PATIENT CARE PER NURSING PROTOCOL Performed By: #### L501.080 #### [facility] Point of Care [address] [place] [address] BEDSIDE GLUCOSE Collected: 02/17/2018 Status: F Source: [place] 5:11 PM [facility] REPOSITORY TYPE CODE TESTS RESULT OUT OF REFERENCE UNITS RANGE LAB L501.080 70-110 mg/dL High BEDSIDE GLU 125 Result Comment: MANAGEMENT OF PATIENT CARE PER NURSING PROTOCOL Performed By: #### L501.080 #### [facility] Point of Care [address] [place] [address] BEDSIDE GLUCOSE Collected: 02/17/2018 Status: F Source: [place] 10:56 AM [facility] REPOSITORY TYPE CODE TESTS RESULT OUT OF REFERENCE UNITS RANGE LAB L501.080 70-110 mg/dL High BEDSIDE GLU 156 Result Comment: MANAGEMENT OF PATIENT CARE PER NURSING PROTOCOL Performed By: #### L501.080 #### [facility] Point of Care [address] [place] [address] HISTORY AND PHYSICAL Observed: 02/17/2018 Status: F Source: [place] EXAM 6:45 AM [facility] REPOSITORY [facility] Medical Records Department [address] [place] [address] History and Physical 02/16/18 2257 MR#: [id number] Acct: [id number] Name: NIKKI VIZCARRA Rep #: [id number] : 1945 73 From: Oziel Angel MD PCP: Salvador HATCH,Octaviano Logan Status: [facility] Problem List (1) Severe sepsis Status: Acute (2) Acute cystitis Status: Acute (3) Acute encephalopathy Status: Acute (4) Cellulitis Status: Acute (5) NAYA (acute kidney injury) Status: Acute History of Present Illness Date of Admission: 02/16/18 Chief Complaint: confusion The patient is a 73 year old F with a significant history of type 2 diabetes; hypertension; CAD status post CABG and stent A. fib who was found on the floor on the day of presentation. Per patient's son she saw patient on the floor in the house. Reportedly patient is has had multiple falls in the past. Her son noticed that patient was confused. Patient has bilateral wounds and she follows up with our wound center. She goes to the wound center for dressing changes every week. Her son noticed that patient has redness and tenderness on her left leg. Patient has multiple histories of cellulitis of her leg. Patient reported subjective fever and chills. She denies any nausea or vomiting. She reports that in the last 2 weeks she has been having some burning with urination. Patient's son reported that patient was prescribed some kind of medication for UTI. It appears that this medication was not antibiotics. At emergency department patient was found to have a temperature of 100.4. She had tachypnea with respiratory rate between 20-27. She had a white count of 19.6 K. Creatinine was elevated at 1.83. Her urinalysis was abnormal. Patient was diagnosed with severe sepsis from cystitis and from cellulitis of her left leg. She received IV fluid bolus and cefazolin. 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) PTCA/stent [...] (Chronic) Medical History: Medical History (Last Reviewed 02/17/18 @ 00:56 by Oziel Angel MD) PVD (peripheral vascular disease) (Chronic) I73.9 Ulcer of left lower extremity with fat layer exposed (Inactive) L97.922 Controlled diabetes mellitus (Chronic) E11.9 Edema, lower extremity (Chronic) R60.0 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) I25.10 [...] I87.2 Allergies ciprofloxacin [From Cipro] Allergy (Verified 02/16/18 21:16) Hives ciprofloxacin HCl [From Cipro] Allergy (Verified 02/16/18 21:16) Hives Latex, Natural Rubber Allergy (Verified 02/16/18 21:16) Rash Penicillins [PCN] Allergy (Verified 02/16/18 21:16) Hives codeine Adverse Reaction (Unknown, Verified 02/16/18 21:16) Unknown adhesive tape Adverse Reaction (Verified 02/16/18 21:16) Rash Home Medications: Ambulatory Orders Medication Instructions Recorded Docusate Sodium [Colace] 100 mg PO DAILY PRN 05/10/17 Surgical History: Surgical History (Last Reviewed 02/17/18 @ 00:56 by Oziel Angel MD) Presence of stent in coronary artery (Chronic) Z95.5 PTCA/stent to CX; PTCA/Stent PTCA/stent to prox RCA 05/06; PTCA/LILY in mid to distal RCA 08/29/12 S/P [...] 12/29/14. Psychiatric History: No 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 hx [employer] History: No pertinent [employer] history Smoking Status: Former smoker - *Family History Maternal Family History: Family History (Last Reviewed 02/17/18 @ 00:56 by Oziel Angel MD) Father Heart disease Mother Hypertension Cancer Brother Diabetes Hypertension History Items: Heart Disease, Hypertension Paternal Family History: Family History (Last Reviewed 02/17/18 @ 00:56 by Oziel Angel MD) Father Heart disease Mother Hypertension Cancer Brother Diabetes Hypertension History Items: Heart Disease, Hypertension, - - skin cancer. Sibling Family History: Family History (Last Reviewed 02/17/18 @ 00:56 by Oziel Angel MD) Father Heart disease Mother Hypertension Cancer Brother Diabetes Hypertension History Items: Diabetes Review of Systems Constitutional: Reports: Chills, Fever - subjective HEENT: Denies: Head Aches, Sinus Congestion, Sinus Drainage Cardiovascular: Denies: Chest Pain, Palpitations Respiratory: Denies: Cough, Shortness of breath at rest, Sputum production Gastrointestinal: Denies: Abdominal Pain, Nausea, Vomiting Genitourinary: Reports: Dysuria, Frequency Musculoskeletal: Reports: Leg Pain - Bilateral leg pain; chronic. Denies: Joint Pain, Joint Tenderness Skin: Reports: - - Erythema of left leg; wound on left leg; wound on left foot.. Denies: Wounds Neurological: Reports: Confusion Psychiatric: Denies: Anxiety, Depression, Homicidal Ideations, Suicidal Ideations Hematologic/ Lymphatic: Denies: Easy Bruising, Easy Bleeding VTE Information - Inpt Only VTE Present on Admission: No VTE Mechan Device Prophylaxis: None VTE Pharm Prophylaxis ordered?: No Reason prophylaxis not ordered:: Treatment Not Indicated - Patient on Xarelto for A. fib; continued Patient Problems: Active and Suspected Problems (Last Reviewed 02/17/18 @ 00:56 by Oziel Angel MD) Severe sepsis (Acute) Acute cystitis (Acute) Acute encephalopathy (Acute) Cellulitis (Acute) NAYA (acute kidney injury) (Acute) - Physical Exam General: Alert, - - Initially patient could not identify her son. She thought her son was a . HEENT: Atraumatic, PERRLA, EOMI, Normocephalic Neck: Supple, No JVD, Negative Carotid Bruits Lungs: Clear to auscultation, Normal air movement, Tachypneic Cardiovascular: Regular rate, No murmurs Abdomen: Bowel Sounds Present - Hyperactive, Soft, Non Tender Extremities: Edema - Bilateral legs, chronic Skin: - - Redness and increased warmth on left leg. Ulcer on right dorsal foot; also on lateral side of left leg Musculoskeletal: Tenderness - Bilateral legs Neurological: Neuro grossly intact - Initially she was confused and she did not know who her son was. Later on her son told her who she was and patient remembered throughout the conversation Psych/Mental Status: Normal Affect Vital Signs Temp Pulse Resp BP Pulse Ox 100.4 F H 88 20 H 181/65 H 95 02/16/18 21:28 02/16/18 22:54 02/16/18 22:54 02/16/18 22:54 02/16/18 22:54 Oxygen Delivery Method Room Air Weight: 101.1 kg Body Mass Index (BMI) 43.5 Finger Stick Blood Glucose 187 Laboratory Tests Past 24 Hrs WBC 19.6 H RBC 4.19 L Hgb 9.4 L Hct 33.1 L MCV 79.0 L MCH 22.4 L MCHC 28.4 L RDW 17.5 H WBC RBC Hgb Hct MCV MCH MCHC RDW RDW Differential Plt Count MPV Immature Gran % (Auto) Neut % (Auto) Lymph % (Auto) Assessment/Plan All Active Problems (Last Reviewed 02/17/18 @ 00:56 by Oziel Angel MD) Severe sepsis (Acute) Acute cystitis (Acute) Acute encephalopathy (Acute) Cellulitis (Acute) NAYA (acute kidney injury) (Acute) Encephalopathy (Resolved) Left leg cellulitis (Acute) The patient is a 73 year old F with a significant history of type 2 diabetes; hypertension; CAD status post CABG and stent A. radha who was found on the floor; with confusion; dysuria; and erythema with increased warmth on left leg; and found to have a fever, tachypnea, leukocytosis, elevated creatinine at emergency department consistent with severe sepsis from acute cystitis and cellulitis. Severe sepsis with acute cystitis and cellulitis Met Sirs criteria with fever of 100.4 that trended up; tachypnea; leukocytosis. Source of infection: Cellulitis of left leg: Abnormal urinalysis. Severe sepsis criteria: Elevated creatinine; lactic acidosis Urine culture and blood culture are pending Antibiotic was started from the emergency department. Trend lactic acid Broad-spectrum antibiotics ordered Tylenol for fever. Patient was not hypotensive Acute cystitis Patient received cefazolin at emergency department. We will give her 1 g of ceftriaxone now; and schedule ceftriaxone daily. Trend CBC and BMP Urine cultures and blood cultures are pending Cellulitis of the left leg Ceftriaxone and clindamycin ordered. Management as an severe sepsis NAYA On admission her creatinine was 1.83. Her BUN was 30 Her baseline creatinine is about 1.4. Likely intrinsic renal from sepsis. Cannot rule out a component of prerenal Gentle IV hydration Avoid nephrotoxins. Lasix and Aldactone held. Her potassium has been held to. Trend BMP. Type 2 diabetes On admission blood glucose was slightly outside goal. With metformin held secondary to lactic acidosis; Accu-Chek q. before meals at bedtime with correction scale ordered. Hypertension On admission her blood pressure was not within goal. Spironolactone and Lasix held because of AK I Metoprolol continued As needed labetalol ordered History of A. fib Stable Metoprolol and Xarelto continued Amiodarone continued DVT prophylaxis Not indicated patient on Xarelto for A. fib. Code Visit Inpatient E AND M: [id number] Init Hosp L3 02/17/18 0645 <Electronically signed by Oziel Angel MD> Date Oziel Angel MD Cosigner Signature: Date (if applicable) CC: Oziel Angel MD; Octaviano Franco MD Signed BEDSIDE GLUCOSE Collected: 02/17/2018 Status: F Source: [place] 6:35 AM [facility] REPOSITORY TYPE CODE TESTS RESULT OUT OF RANGE REFERENCE UNITS LAB L501.080 70-110 mg/dL Normal BEDSIDE GLU 90 Result Comment: MANAGEMENT OF PATIENT CARE PER NURSING PROTOCOL Performed By: #### L501.080 #### [facility] Point of Care [address] [place] [address] IRON+IRON BINDING Collected: 02/17/2018 Status: F Source: [place] 6:32 AM [facility] REPOSITORY TYPE CODE TESTS RESULT OUT OF RANGE REFERENCE UNITS LAB L503.6075 250-450 ug/dL TIBC Normal 292 LAB L503.6150 50-170 ug/dL Low IRON 12 LAB L503.6250 15.0-55.0 % Low IRON SATURATION 4.1 Performed By: #### L503.6030, L503.6550 #### [facility] [address] [place], [address] FERRITIN Collected: 02/17/2018 Status: F Source: [place] 6:32 AM [facility] REPOSITORY TYPE CODE TESTS RESULT OUT OF RANGE REFERENCE UNITS LAB L503.6550 8-252 ng/mL Normal FERRITIN 35 Performed By: #### L503.6030, L503.6550 #### [facility] [address] [place], [address] CBC W/DIFF, AUTOMATED Collected: 02/17/2018 Status: F Source: [place] 5:41 AM [facility] REPOSITORY TYPE CODE TESTS RESULT OUT OF RANGE REFERENCE UNITS LAB L100.1000 4.4-11.0 K/mm3 High WBC 15.1 LAB L100.1200 4.2-5.4 M/mm3 Low RBC 3.95 LAB L100.1300 12.0-15.0 g/dl Low HGB 8.8 LAB L100.1400 37-47 % Low HCT 31.1 LAB L100.1500 81-99 fL Low MCV 78.7 LAB L100.1600 27.0-32.0 pg Low MCH 22.3 LAB L100.1700 32-36 g/gl Low MCHC 28.3 LAB L100.1810 11.6-14.6 % High RDW CV 17.7 LAB L100.1820 35.1-43.9 fl High RDW SD 50.8 LAB L100.1900 150-450 K/mm3 Normal PLT 252 LAB L100.2000 6.2-12.0 fl Normal MPV 9.3 LAB L100.2100 47-70 % High NEUT% 84.0 LAB L100.2200 19-41 % Low LY% 10.4 LAB L100.2300 0-10 % Normal MONO% 5.0 LAB L100.2400 0-5 % Normal EO% 0.3 LAB L100.2500 0-1 % Normal BASO% 0.1 LAB L100.2550 0.0-0.9 % Normal IM GRAN % 0.200 Result Comment: IG% - Immature Granulocytes (promyelocytes, myelocytes and metamyelocytes) > 1% indicates that a LEFT SHIFT is Present. LAB L100.2620 2.0-7.7 X10 3/uL High Absolute Neut 12.7 LAB L100.2720 0.83-4.51 X10 3/ul Normal Absolute Lymph 1.57 Performed By: #### L100.0100 #### [facility] [address] [place], [address] BASIC METABOLIC Collected: 02/17/2018 Status: F Source: [place] PROFILE ([facility]) 5:41 AM [facility] REPOSITORY TYPE CODE TESTS RESULT OUT OF RANGE REFERENCE UNITS LAB L501.0100 74-106 mg/dL High GLU 124 Result Comment: Fasting Glucose result from 100 to 125 mg/dL suggests IMPAIRED HOMEOSTASIS per A.D.A. criteria. Please note revised GLUCOSE reference range effective 2017. LAB L501.1000 7-18 mg/dL High BUN 27 LAB L501.1100 0.55-1.02 mg/dL High CREAT,SERUM 1.59 Result Comment: The validity of the calculated GFR AND GFRAA in patients over 70 years has not been determined. Clinical correlation is essential. LAB L501.1110 >60 mL/min Low EST GFR 34 Result Comment: Non- GFR Calc LAB L501.1115 >60 mL/min Low EST GFR - AA 41 Result Comment: GFR Calc LAB L501.1255 ml/min Normal Estimated CRCL 22.30 LAB L501.1300 10-20 RATIO Normal BUN/CRE 17.0 LAB L501.2200 8.5-10 mg/dL Normal .1 CA 8.6 LAB L501.5300 136-14 mmol/L Normal 5 NA 143 LAB L501.5600 3.5-5. mmol/L Low 1 K 3.4 LAB L501.5900 98-107 mmol/L Normal CL 105 LAB L501.6100 21.0-3 mmol/L Normal 2.0 CO2 30.0 LAB L501.6200 5-15 Normal GAP 8 Performed By: #### L500.2500 #### [facility] [address] [place], [address] LACTIC ACID Collected: 02/17/2018 Status: F Source: [place] 2:15 AM [facility] REPOSITORY TYPE CODE TESTS RESULT OUT OF RANGE REFERENCE UNITS LAB L503.6005 0.4-2.0 mmol/L Normal LACTIC ACID 1.1 Performed By: #### L503.6005 #### [facility] [address] [place], [address] EMERGENCY DEPARTMENT Observed: 02/16/2018 Status: F Source: [place] SUMMARY 10:42 PM [facility] REPOSITORY [facility] Medical Records Department [address] [place] [id number] Emergency Department Summary 02/16/18 2125 MR#: [id number] Acct: [id number] Name: NIKKI VIZCARRA Rep #: [id number] : 1945 73 From: Chavez Coelho MD PCP: Salvador HATCH,Octaviano Logan Status: REG ER - ER Visit Summary Date of Service: 02/16/18 Chief Complaint: Confusion, left leg redness History of Present Illness: The patient is a 73 F who presents with the above symptoms. She states she is felt confused for the past couple of days. Her left leg is red. She does see wound care for lower extremities. Per medical record she had a debridement on the left lower leg on . She denies having a fever. No abdominal pain, nausea or vomiting. No cough. She states that she has had some dysuria as well. No hematuria. No abdominal pain Physical Examination: Vital signs reviewed. Temperature is 100.4 F. HEENT exam unremarkable. Heart is regular rate and rhythm without murmurs. Lungs are clear bilaterally. Abdomen is soft and nontender. Extremities reveal 1+ symmetric pitting edema. She does have significant erythema of the left leg from the proximal tibia down to the foot. The right leg has no erythema or redness or warmth. The left leg is warmer than the right. Her neurologic exam is intact. She is alert and oriented x3. Test Results: EKG is sinus rhythm with a rate of 94. She has nonspecific ST and T wave changes. White blood cell count 19.6. Hemoglobin 9.4. Creatinine 1.83. Lactate 3.6. Urinalysis does reveal 2+ leukocytes and positive nitrites. Chest x-ray reveals no acute process Emergency Department Course and Treatment: Patient was given IV fluids. She does have multiple sources of infection including the erythema and cellulitis of her left lower extremity as well as a UTI. She was started on IV Kefzol. She meets severe sepsis criteria. Her blood pressure has been normal. Patient will be admitted to the hospital Treatment Plan: [] Disposition: Admit Impression: Severe sepsis, left lower extremity cellulitis, UTI This note was generated with [employer] dictation software. It may contain incorrect words, spelling, and punctuation that were not noted in review of the chart prior to signing ED Disposition - Plan for ED Patient: Chief Complaint: Confusion Referrals: Octaviano Franco Chi, MD [Primary Care Provider] - What to do if you have Problems For any increased pain, shortness of breath, bleeding, nausea or vomiting, chest pain, or any unexpected problems, contact your Primary Care Provider. Call [facility] ([phone]) or report to the closest Emergency Room. Call 911 if necessary. 02/16/18 3606 <Electronically signed by Chavez Coelho MD> Date Chavez Coelho MD Cosigner Signature (If Indicated): Date CC: Octaviano Franco MD URINALYSIS, COMPLETE Collected: 02/16/2018 Status: F Source: [place] 10:30 PM [facility] REPOSITORY Order Comment: How was Urine Obtained? HANDS ASSEMBLER TO SPECIFY TYPE CODE TESTS RESULT OUT OF RANGE REFERENCE UNITS LAB L400.3000 Yellow Normal COLOR SEE COMMENT BELOW Result Comment: Visual Urine Color: GREEN LAB L400.3050 Clear Normal CLARITY Clear LAB L400.3200 Normal mg/dl Normal GLUCOSE, UR Normal LAB L400.3300 Negative mg/dL Normal BILIRUBIN URINE Negative LAB L400.3400 Negative mg/dl Normal KETONE UR Negative LAB L400.3465 1.002-1.030 Normal SP.GR. DIPSTX 1.010 LAB L400.3550 5.0 - 8.0 pH UR Normal 6.0 LAB L400.3600 Negative mg/dl PROT Normal DIPSTX Negative LAB L400.3700 Normal mg/dl Normal UROBILI Normal LAB L400.3750 Negative High NITRITE UR Positive LAB L400.3780 Negative /ul High 25 OCCULT BLOOD-UR LAB L400.3800 Negative /ul High LEUK ESTERASE 500 LAB L400.4050 0-5 /hpf WBC Normal 25-50 SEEN LAB L400.4100 0-5 /hpf 0 Normal RBC-UA SEEN LAB L400.4150 5-10 /hpf SQUAM 0 Normal EPI SEEN LAB L400.4300 None Seen /hpf 1+ Normal BACTERIA LAB L400.4350 <or=2+ /hpf 0 Normal MUCUS, URINE SEEN Performed By: #### L400.0001 #### [facility] [address] [place], [place], [id number] Observed: 02/16/2018 Status: F Source: [place] CULTURE, URINE 10:30 PM [facility] REPOSITORY Urine Culture ORGANISM 1: Presumptive E. coli Rum[place] Count >100,000 Presumptive E. coli: REACTION Amoxacillin/Clavulanic Acid $ 4 S Ampicillin $ >=32 R Ampicillin/Sulbactam $ 16 I Cefazolin $ <=4 S Cefepime $ <=1 S Ceftriaxone $ <=1 S Ciprofloxacin $ <=0.25 S ESBL - Ertapenim $$$ <=0.5 S Gentamicin $ <=1 S Imipenem *NF <=0.25 S Levofloxacin $ <=0.12 S Nitrofurantoin $ <=16 S Piperacillin/Tazobactam $$ <=4 S Tobramycin $ <=1 S Trimethoprim/Sulfametho $ >=320 R (NF) indicates non-formulary drug at [facility]. Approval by Infectious Disease Specialist required before non-formulary drugs may be ordered and/or dispensed. Performed By: #### M100.0650 #### [facility] [address] [place], [address] CBC W/DIFF, AUTOMATED Collected: 02/16/2018 Status: F Source: [place] 9:50 PM [facility] REPOSITORY TYPE CODE TESTS RESULT OUT OF RANGE REFERENCE UNITS LAB L100.1000 4.4-11.0 K/mm3 High WBC 19.6 LAB L100.1200 4.2-5.4 M/mm3 Low RBC 4.19 LAB L100.1300 12.0-15.0 g/dl Low HGB 9.4 LAB L100.1400 37-47 % Low HCT 33.1 LAB L100.1500 81-99 fL Low MCV 79.0 LAB L100.1600 27.0-32.0 pg Low MCH 22.4 LAB L100.1700 32-36 g/gl Low MCHC 28.4 LAB L100.1810 11.6-14.6 % High RDW CV 17.5 LAB L100.1820 35.1-43.9 fl High RDW SD 49.5 LAB L100.1900 150-450 K/mm3 Normal PLT 278 LAB L100.2000 6.2-12.0 fl Normal MPV 9.1 LAB L100.2100 47-70 % High NEUT% 92.7 LAB L100.2200 19-41 % Low LY% 5.1 LAB L100.2300 0-10 % Normal MONO% 1.7 LAB L100.2400 0-5 % Normal EO% 0.1 LAB L100.2500 0-1 % Normal BASO% 0.1 LAB L100.2550 0.0-0.9 % Normal IM GRAN % 0.300 Result Comment: IG% - Immature Granulocytes (promyelocytes, myelocytes and metamyelocytes) > 1% indicates that a LEFT SHIFT is Present. LAB L100.2620 2.0-7.7 X10 3/uL High Absolute Neut 18.2 LAB L100.2720 0.83-4.51 X10 3/ul Normal Absolute Lymph 0.99 Performed By: #### L100.0100 #### [facility] [address] [place], [address] PROTHROMBIN TIME W/INR Collected: 02/16/2018 Status: F Source: [place] 9:50 PM [facility] REPOSITORY TYPE CODE TESTS RESULT OUT OF RANGE REFERENCE UNITS LAB L300.4150 11.7-14.9 SECONDS High PROTIME 15.7 LAB L300.4200 Normal INR 1.3 Performed By: #### L300.3900, L300.4310 #### [facility] [address] [place], [address] PARTIAL THROMBOPLAST Collected: 02/16/2018 Status: F Source: [place] TIME 9:50 PM [facility] REPOSITORY TYPE CODE TESTS RESULT OUT OF RANGE REFERENCE UNITS LAB L300.4310 24.1-36.2 Seconds Normal PTT 30.1 Performed By: #### L300.3900, L300.4310 #### [facility] [address] [facility] [address] COMPREHENSIVE METABOLIC Collected: 02/16/2018 Status: F Source: [place] PROFIL 9:50 PM [facility] REPOSITORY TYPE CODE TESTS RESULT OUT OF RANGE REFERENCE UNITS LAB L501.0100 74-106 mg/dL High GLU 189 Result Comment: Fasting Glucose result greater than or equal to 126 mg/dL suggests DIABETES MELLITUS per A.D.A. criteria. Please note revised GLUCOSE reference range effective 2017. LAB L501.1000 7-18 mg/dL High BUN 30 LAB L501.1100 0.55-1.02 mg/dL High CREAT,SERUM 1.83 Result Comment: The validity of the calculated GFR AND GFRAA in patients over 70 years has not been determined. Clinical correlation is essential. LAB L501.1110 >60 mL/min Low EST GFR 29 Result Comment: Non- GFR Calc LAB L501.1115 >60 mL/min Low EST GFR - AA 35 Result Comment: GFR Calc LAB L501.1255 ml/min Normal Estimated CRCL 19.37 LAB L501.1300 10-20 RATIO Normal BUN/CRE 16.4 LAB L501.1500 6.4-8. g/dL Low 2 T PROT 6.3 LAB L501.1800 3.2-5. g/dL Low 0 ALB 3.0 LAB L501.1950 2.2-4. g/dL Normal 2 GLOB 3.3 LAB L501.2000 0.9-2. RATIO Normal 4 A/G 0.9 LAB L501.2200 8.5-10 mg/dL Normal .1 CA 8.8 LAB L501.4100 15-37 U/L Normal AST 25 LAB L501.4305 45-117 U/L Normal ALK P 84 LAB L501.4405 13-56 U/L Normal ALT 42 LAB L501.4600 0.20-1 mg/dL Normal .00 T BILI 0.60 LAB L501.5300 136-14 mmol/L Normal 5 NA 141 LAB L501.5600 3.5-5. mmol/L Normal 1 K 3.7 LAB L501.5900 98-107 mmol/L Normal CL 103 LAB L501.6100 21.0-3 mmol/L Normal 2.0 CO2 28.0 LAB L501.6200 5-15 Normal GAP 10 Performed By: #### L500.4050 #### [facility] [address] [place], [address] LACTIC ACID Collected: 02/16/2018 Status: F Source: [place] 9:50 PM [facility] REPOSITORY Order Comment: Yes/No query for Sepsis Lactate Rule Y TYPE CODE TESTS RESULT OUT OF REFERENCE UNITS RANGE LAB L503.6005 0.4-2.0 mmol/L High LACTIC ACID 3.6 Result Comment: Critical Result(s) Called at: 22:29:54 02/16/2018 by: Rosalinda Hendrickson Performed By: #### L503.6005 #### [facility] [address] [place], [address] Observed: 02/16/2018 Status: F Source: [place] CULTURE, BLOOD (WB) 9:50 PM [facility] REPOSITORY BC No growth in 5 days. Performed By: #### M200.1000 #### [facility] [address] [place], [address] Observed: 02/16/2018 Status: F Source: [place] CULTURE, BLOOD (WB) 9:26 PM [facility] REPOSITORY BC No growth in 5 days. Performed By: #### M200.1000 #### [facility] [address] [place], [address] CHEST 1 VIEW Observed: 02/16/2018 Status: F Source: [place] (PORTABLE) 9:23 PM [facility] REPOSITORY [facility] Imaging Services [address] [place] [address] Chest 1 View (Portable) MR#: [id number] Acct: [id number] Name: NIKKI VIZCARRA Rep #: [id number] : 1945 F 73 From: Peggy Sheth MD PCP: Octaviano Franco MD, Chi Status: REG ER Study: Chest 1 View (Portable) Date of Exam: 02/16/18 Exam# [id number] Ordering Dr: Chavez Coelho MD STUDY: X-RAY CHEST REASON FOR EXAM: Female, 73 years old. Weakness confusion. TECHNIQUE: Portable chest. COMPARISON: 12/16/2017. FINDINGS: The lungs are clear and expanded. There is no demonstrated pleural abnormality. There is mild cardiac enlargement. Normal mediastinum and alee. Normal visualized pulmonary arteries. Normal visualized aortic arch and descending thoracic aorta. Normal visualized thoracic spine. Normal visualized ribs, clavicles, and shoulders. There is no demonstrated abnormality of the visualized soft tissue structures of the upper abdomen. RAD/Chest 1 View (Portable) IMPRESSION: No acute process. 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 coli Rumson Count >100,000 Presumptive E. coli: REACTION Amoxacillin/Clavulanic [...] <=20 S (NF) indicates non-formulary drug at [facility]. Approval by Infectious Disease Specialist required before non-formulary drugs may be ordered and/or dispensed. Performed By: #### M100.0650 #### [facility] [address] [place], [address] EMERGENCY DEPARTMENT Observed: 01/03/2018 Status: F Source: [place] SUMMARY 7:03 PM [facility] REPOSITORY [facility] Medical Records Department [address] [place] [address] Emergency Department Summary 01/03/18 1512 MR#: [id number] Acct: [id number] Name: NIKKI VIZCARRA Rep #: [id number] : 1945 72 From: Bayron Basurto MD [...] post fall This note was generated with [employer] dictation software. It may contain incorrect words, [...] your Primary Care Provider. Call [facility] ([phone]) or report to the closest Emergency Room. Call 911 if necessary. 01/03/18 1903 <Electronically signed by Bayron Basurto MD> Date Bayron Basurto MD Cosigner Signature (If Indicated): Date CC: Octaviano Franco MD HAND MIN 3 VIEWS Observed: 01/03/2018 Status: F Source: [place] 3:07 PM [facility] REPOSITORY [facility] Imaging Services [address] [place] [address] Hand Min 3 Views MR#: [id number] Acct: [id number] Name: NIKKI VIZCARRA Rep #: [id number] : 1945 F 72 From: Milo Hughes MD PCP: Octaviano Franco MD, Chi Status: REG ER Study: Hand Min 3 Views Date of Exam: 01/03/18 Exam# [id number] Ordering Dr: Bayron Basurto MD STUDY: X-RAY [...] Milo Hughes MD at 16:02 EST Tel [phone], Service support , CC: Bayron Basurto MD; Octaviano Franco MD Construction Ironworker Helper: Signed ELBOW MIN 3 VIEWS Observed: 01/03/2018 Status: F Source: [place] 3:07 PM [facility] REPOSITORY [facility] Imaging Services [address] [place] [address] Elbow min 3 Views MR#: [id number] Acct: [id number] Name: NIKKI VIZCARRA Rep #: [id number] : 1945 F 72 From: Milo Hughes MD PCP: Octaviano Franco MD, Chi Status: REG ER Study: Elbow min 3 Views Date of Exam: 01/03/18 Exam# [id number] Ordering Dr: Bayron Basurto MD STUDY: X-RAY [...] Milo Hughes MD at 16:02 EST Tel [phone], Service support , CC: Bayron Basurto MD; Octaviano Franco MD Construction Ironworker Helper: Signed RIBS UNI MIN 3V Observed: 01/03/2018 Status: F Source: [place] W/PA CHEST 3:07 PM [facility] REPOSITORY [facility] Imaging [place] [address] Ribs Uni Min 3V w/PA Chest MR#: [id number] Acct: [id number] Name: NIKKI VIZCARRA Rep #: [id number] : 1945 F 72 From: Milo Hughes MD PCP: Octaviano Franco MD, Chi Status: REG ER Study: Ribs Uni Min 3V w/PA Chest Date of Exam: 01/03/18 Exam# [id number] Ordering Dr: Bayron Basurto MD STUDY: X-RAY [...] Milo Hughes MD at 16:05 EST Tel [phone], Service support , CC: Bayron Basurto MD; Octaviano Franco MD 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 Patient was instructed to follow-up with her primary care physician in 5-7 days. Patient understood and was agreeable with the plan. All questions were answered. Disposition: Discharged home Impression: Trigeminal neuralgia This note was generated with [employer] dictation software. It may contain incorrect words, spelling, and punctuation that were not noted in review of the chart prior to signing ED Disposition - Plan for ED Patient: Disposition: Home or Assisted Living Chief Complaint: Other, Pain/Inj Diagnosis: Trigeminal neuralgia of right side of face Instructions: ED Chronic Pain Management Prescriptions: Hydrocodone Bitart/Apap 5-325 [Independence 5MG-325MG] 1 tab PO Q6H PRN PRN 3 Days #10 tab PRN Reason: Pain Referrals: Octaviano Franco Chi, MD [Primary Care Provider] - Benoit Martínez MD [STAFF PHYSICIAN] - What to do if you have Problems For any increased pain, shortness of breath, bleeding, nausea or vomiting, chest pain, or any unexpected problems, contact your Primary Care Provider. Call [facility] ([phone]) or report to the closest Emergency Room. Call 911 if necessary. 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 Approval by Infectious Disease Specialist required before non-formulary drugs may be ordered and/or dispensed. Performed By: #### M100.0650 #### [facility] [address] 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 Patient was an inconsistent informant, there was a suspicion of somnolence from gabapentin which that the patient takes chronically. Examination in the emergency room revealed the patient to be oriented x1, patient had been seen the night before in the emergency department at [facility] and treated for cellulitis of the left leg with doxycycline. CT of the head was carried out it showed no acute findings, white blood cell count was elevated at 24, creatinine was 1.61. Patient was given IV vancomycin and admitted to [place] [address]. Patient was felt not to have sepsis. [...] patient did not want to go to retirement facility and it was felt that it [...] applicable Code Visit Inpatient E AND M: 98861 Disch Hosp 12/23/17 1032 <Electronically signed by Nicanor Hoyt DO> Date Nicanor Hoyt DO Cosigner Signature (if applicable): Date CC: Nicanor Hoyt DO; Octaviano Franco MD Signed DISCHARGE INSTRUCTION Observed: 12/21/2017 Status: F Source: [place] 5:02 PM [facility] REPOSITORY [facility] Medical Records Department [address] [place] [address] Instructions for Home/Discharge Instructions 12/21/17 1701 MR#: [id number] Acct: [id number] Name: NIKKI VIZCARRA Rep #: [id number] : 1945 72 From: Nicanor Hoyt DO PCP: Salvador HATCH,Octaviano Logan Status: ADM IN You will use the [...] 12/21/2017 Status: F Source: [place] 4:55 PM [facility] REPOSITORY TYPE CODE TESTS RESULT OUT OF REFERENCE UNITS RANGE LAB L501.080 70-110 mg/dL High BEDSIDE GLU 137 Result Comment: MANAGEMENT OF PATIENT CARE PER NURSING PROTOCOL Performed By: #### L501.080 #### [facility] Point of Care [address] [place] [address] BEDSIDE GLUCOSE Collected: 12/21/2017 Status: F Source: [place] 12:13 PM [facility] REPOSITORY TYPE CODE TESTS RESULT OUT OF REFERENCE UNITS RANGE LAB L501.080 70-110 mg/dL High BEDSIDE GLU 226 Result Comment: MANAGEMENT OF PATIENT CARE PER NURSING PROTOCOL Performed By: #### L501.080 #### [facility] Point of Care [address] [place] [address] BEDSIDE GLUCOSE Collected: 12/21/2017 Status: F Source: [place] 6:27 AM [facility] REPOSITORY TYPE CODE TESTS RESULT OUT OF REFERENCE UNITS RANGE LAB L501.080 70-110 mg/dL High BEDSIDE GLU 175 Result Comment: MANAGEMENT OF PATIENT CARE PER NURSING PROTOCOL Performed By: #### L501.080 #### [facility] Point of Care [address] [place] [address] BEDSIDE GLUCOSE Collected: 12/20/2017 Status: F Source: [place] 10:45 PM [facility] REPOSITORY TYPE CODE TESTS RESULT OUT OF REFERENCE UNITS RANGE LAB L501.080 70-110 mg/dL High BEDSIDE GLU 172 Result Comment: MANAGEMENT OF PATIENT CARE PER NURSING PROTOCOL Performed By: #### L501.080 #### [facility] Point of Care [address] [place] [address] BEDSIDE GLUCOSE Collected: 12/20/2017 Status: F Source: [place] 4:42 PM [facility] REPOSITORY TYPE CODE TESTS RESULT OUT OF REFERENCE UNITS RANGE LAB L501.080 70-110 mg/dL High BEDSIDE GLU 157 Result Comment: MANAGEMENT OF PATIENT CARE PER NURSING PROTOCOL Performed By: #### L501.080 #### [facility] Point of Care [address] [place] [address] BRAIN WITHOUT Observed: 12/20/2017 Status: F Source: [place] CONTRAST 1:36 PM [facility] REPOSITORY [facility] Imaging Services [address] [place] [address] Brain without Contrast MR#: [id number] Acct: [id number] Name: NIKKI VIZCARRA Rep #: [id number] : 1945 F 72 From: Ryan Roman MD PCP: Salvador HATCH,Octaviano [facility] Status: ADM IN Study: Brain without Contrast Date of Exam: 12/20/17 Exam# [id number] Ordering Dr: Nicanor Hoyt DO STUDY: MRI [...] CC: Nicanor Hoyt DO; Octaviano Franco MD 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 [address] BEDSIDE GLUCOSE Collected: 12/20/2017 Status: F Source: [place] 6:45 AM [facility] REPOSITORY TYPE CODE TESTS RESULT OUT OF REFERENCE UNITS RANGE LAB L501.080 70-110 mg/dL High BEDSIDE GLU 173 Result Comment: MANAGEMENT OF PATIENT CARE PER NURSING PROTOCOL Performed By: #### L501.080 #### [facility] Point of Care [address] [place] [address] BEDSIDE GLUCOSE Collected: 12/19/2017 Status: F Source: [place] 10:41 PM [facility] REPOSITORY TYPE CODE TESTS RESULT OUT OF REFERENCE UNITS RANGE LAB L501.080 70-110 mg/dL High BEDSIDE GLU 164 Result Comment: MANAGEMENT OF PATIENT CARE PER NURSING PROTOCOL Performed By: #### L501.080 #### [facility] Point of Care [address] [place] [address] BEDSIDE GLUCOSE Collected: 12/19/2017 Status: F Source: [place] 4:32 PM [facility] REPOSITORY TYPE CODE TESTS RESULT OUT OF REFERENCE UNITS RANGE LAB L501.080 70-110 mg/dL High BEDSIDE GLU 155 Result Comment: MANAGEMENT OF PATIENT CARE PER NURSING PROTOCOL Performed By: #### L501.080 #### [facility] Point of Care [address] [place] [address] BEDSIDE GLUCOSE Collected: 12/19/2017 Status: F Source: [place] 11:18 AM [facility] REPOSITORY TYPE CODE TESTS RESULT OUT OF REFERENCE UNITS RANGE LAB L501.080 70-110 mg/dL High BEDSIDE GLU 127 Result Comment: MANAGEMENT OF PATIENT CARE PER NURSING PROTOCOL Performed By: #### L501.080 #### [facility] Point of Care [address] [place] [address] BEDSIDE GLUCOSE Collected: 12/19/2017 Status: F Source: [place] 6:43 AM [facility] REPOSITORY TYPE CODE TESTS RESULT OUT OF RANGE REFERENCE UNITS LAB L501.080 70-110 mg/dL Normal BEDSIDE GLU 107 Result Comment: MANAGEMENT OF PATIENT CARE PER NURSING PROTOCOL Performed By: #### L501.080 #### [facility] Point of Care [address] [place] [address] BEDSIDE GLUCOSE Collected: 12/18/2017 Status: F Source: [place] 9:12 PM [facility] REPOSITORY TYPE CODE TESTS RESULT OUT OF REFERENCE UNITS RANGE LAB L501.080 70-110 mg/dL High BEDSIDE GLU 129 Result Comment: MANAGEMENT OF PATIENT CARE PER NURSING PROTOCOL Performed By: #### L501.080 #### [facility] Point of Care [address] [place] [address] BEDSIDE GLUCOSE Collected: 12/18/2017 Status: F Source: [place] 5:07 PM [facility] REPOSITORY TYPE CODE TESTS RESULT OUT OF REFERENCE UNITS RANGE LAB L501.080 70-110 mg/dL High BEDSIDE GLU 126 Result Comment: MANAGEMENT OF PATIENT CARE PER NURSING PROTOCOL Performed By: #### L501.080 #### [facility] Point of Care [address] [place] [address] 12 LEAD ELECTROCARDIOGRAM Observed: 12/18/2017 Status: F Source: [place] 3:58 PM [facility] REPOSITORY [facility] Cardiovascular Services [address] [place] [address] 12 Lead EKG 12/16/17 0413 MR#: [id number] Acct: [id number] Name: NIKKI VIZCARRA Rep #: [id number] : 1945 72 From: Kurtis Barajas MD Attending Dr: Nicanor Hoyt DO Status: ADM IN Ordering Dr: Darron Cheney MD Date: 12/16/17 Location: [place] Sex: F C Admitted: 12/16/17 Test Reason [...] abnormality Abnormal ECG Confirmed by KARL HATCH, KURITS ([id number]), magazine editor SHAHNAZ MARINA ([id number]) on 12/18/2017 3:58:22 PM Referred By: BOBBY Confirmed By:KURTIS BARAJAS MD 12/18/17 1558 Date Kurtis Barajas MD CC: Darron Cheney MD; Nicanor Hoyt DO; Octaviano Franco MD Signed BEDSIDE GLUCOSE Collected: 12/18/2017 Status: F Source: [place] 11:34 AM [facility] REPOSITORY TYPE CODE TESTS RESULT OUT OF REFERENCE UNITS RANGE LAB L501.080 70-110 mg/dL High BEDSIDE GLU 112 Result Comment: MANAGEMENT OF PATIENT CARE PER NURSING PROTOCOL Performed By: #### L501.080 #### [facility] Point of Care [address] [place], [place] [address] BEDSIDE GLUCOSE Collected: 12/18/2017 Status: F Source: [place] 7:01 AM [facility] REPOSITORY TYPE CODE TESTS RESULT OUT OF REFERENCE UNITS RANGE LAB L501.080 70-110 mg/dL High BEDSIDE GLU 113 Result Comment: MANAGEMENT OF PATIENT CARE PER NURSING PROTOCOL Performed By: #### L501.080 #### [facility] Point of Care [address] [place] [address] BEDSIDE GLUCOSE Collected: 12/17/2017 Status: F Source: [place] 9:14 PM [facility] REPOSITORY TYPE CODE TESTS RESULT OUT OF REFERENCE UNITS RANGE LAB L501.080 70-110 mg/dL High BEDSIDE GLU 130 Result Comment: MANAGEMENT OF PATIENT CARE PER NURSING PROTOCOL Performed By: #### L501.080 #### [facility] Point of Care [address] [place] [address] BEDSIDE GLUCOSE Collected: 12/17/2017 Status: F Source: [place] 4:11 PM [facility] REPOSITORY TYPE CODE TESTS RESULT OUT OF REFERENCE UNITS RANGE LAB L501.080 70-110 mg/dL High BEDSIDE GLU 142 Result Comment: MANAGEMENT OF PATIENT CARE PER NURSING PROTOCOL Performed By: #### L501.080 #### [facility] Point of Care [address] 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 [address] BEDSIDE GLUCOSE Collected: 12/17/2017 Status: F Source: [place] 6:47 AM [facility] REPOSITORY TYPE CODE TESTS RESULT OUT OF REFERENCE UNITS RANGE LAB L501.080 70-110 mg/dL High BEDSIDE GLU 118 Result Comment: MANAGEMENT OF PATIENT CARE PER NURSING PROTOCOL Performed By: #### L501.080 #### [facility] Point of Care [address] [place] [address] BASIC METABOLIC Collected: 12/17/2017 Status: F Source: [place] PROFILE (BMP) 5:36 AM [facility] REPOSITORY TYPE CODE TESTS RESULT OUT [...] GAP 8 Performed By: #### L500.2500 #### [facility] [place], [address] CBC W/DIFF, AUTOMATED Collected: 12/17/2017 Status: F Source: [place] 5:36 AM [facility] REPOSITORY TYPE CODE TESTS RESULT OUT [...] Normal 1+ Performed By: #### L100.0100 #### [facility] [address] [place], [address] BEDSIDE GLUCOSE Collected: 12/16/2017 Status: F Source: [place] 9:12 PM [facility] REPOSITORY TYPE CODE TESTS RESULT OUT OF REFERENCE UNITS RANGE LAB L501.080 70-110 mg/dL High BEDSIDE GLU 136 Result Comment: MANAGEMENT OF PATIENT CARE PER NURSING PROTOCOL Performed By: #### L501.080 #### [facility] Point of Care [address] [place] [address] BEDSIDE GLUCOSE Collected: 12/16/2017 Status: F Source: [place] 4:30 PM [facility] REPOSITORY TYPE CODE TESTS RESULT OUT OF REFERENCE UNITS RANGE LAB L501.080 70-110 mg/dL High BEDSIDE GLU 126 Result Comment: MANAGEMENT OF PATIENT CARE PER NURSING PROTOCOL Performed By: #### L501.080 #### [facility] Point of Care [address] [place] [address] [place] [address] LACTIC ACID Collected: 12/16/2017 Status: F Source: [place] 4:20 PM [facility] REPOSITORY Order Comment: Yes/No query for Sepsis Lactate Rule Y TYPE CODE TESTS RESULT OUT OF RANGE REFERENCE UNITS LAB L503.6005 0.4-2.0 mmol/L Normal LACTIC ACID 1.1 Performed By: #### L503.6005 #### [facility] [address] [place], [place] [address]e. [facility] [address] M R STAPH AUREUS Collected: 12/16/2017 Status: F Source: [place] DNA BY PCR 2:00 PM [facility] REPOSITORY Order Comment: Has pt arrived? Y TYPE CODE TESTS RESULT OUT OF RANGE REFERENCE UNITS LAB L8200.1100 Negative Normal MRSA Negative RESULT Performed By: #### L8200.1000 #### [facility] [address] [place] [address] [place], [address] URINALYSIS, COMPLETE Collected: 12/16/2017 Status: F Source: [place] 11:00 AM [facility] REPOSITORY Order Comment: How was Urine Obtained? [...] URINE SEEN Performed By: #### L400.0001 #### [facility] [place], [place], [address] Observed: 12/16/2017 Status: F Source: [place] CULTURE, URINE 11:00 AM [facility] REPOSITORY Has pt arrived? Y Urine Culture ORGANISM 1: Mixed Gram Positive Organisms Rumson Count <1000 MIX CULTURE Mixed contaminants. Submit a new specimen if indicated. Performed By: #### M100.0650 #### [facility] [address] [facility] [place], [place], [address] BEDSIDE GLUCOSE Collected: 12/16/2017 Status: F Source: [place] 10:56 AM [facility] REPOSITORY TYPE CODE TESTS RESULT OUT OF REFERENCE UNITS RANGE LAB L501.080 70-110 mg/dL High BEDSIDE GLU 125 Result Comment: MANAGEMENT OF PATIENT CARE PER NURSING PROTOCOL Performed By: #### L501.080 #### [facility] Point of Care [address] [place] [address] LACTIC ACID Collected: 12/16/2017 Status: F Source: [place] 9:35 AM [facility] REPOSITORY TYPE CODE TESTS RESULT OUT OF REFERENCE UNITS RANGE LAB L503.6005 0.4-2.0 mmol/L High alert LACTIC ACID 4.1 Result Comment: Critical Result(s) Called at: 10:24:10 12/16/2017 by: Robert Mittal RN Performed By: #### L503.6005 #### [facility] [address] [place], [address] BEDSIDE GLUCOSE Collected: 12/16/2017 Status: F Source: [place] 7:05 AM [facility] REPOSITORY TYPE CODE TESTS RESULT OUT OF REFERENCE UNITS RANGE LAB L501.080 70-110 mg/dL High BEDSIDE GLU 175 Result Comment: MANAGEMENT OF PATIENT CARE PER NURSING PROTOCOL Performed By: #### L501.080 #### [facility] Point of Care [address] 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 Psychiatric History: No 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 hx [employer] History: No pertinent [employer] history Smoking Status: Former smoker - *Family [...] management. Patient does not want to go alf. 3. Paroxysmal A. fib on Xarelto: Currently [...] recovery Code Visit Inpatient E AND M: 18694 Init Hosp L3 12/16/17 0633 <Electronically signed by Preston Hubbard MD> Date Preston Hubbard MD Cosigner Signature: Date (if applicable) CC: Preston Hubbard MD; Octaviano Franco MD Signed EMERGENCY DEPARTMENT Observed: 12/16/2017 Status: F Source: [place] SUMMARY 5:55 AM [facility] REPOSITORY [facility] Medical Records Department [address] [place] [address] Emergency Department Summary 12/16/17 0551 MR#: [id number] Acct: [id number] Name: NIKKI VIZCARRA Braxton Rep #: [id number] : 1945 72 From: Darron Cheney MD [...] injury Confusion This note was generated with [employer] dictation software. It may contain incorrect words, [...] your Primary Care Provider. Call [facility] ([phone]) or report to the closest Emergency Room. Call 911 if necessary. 12/16/17 0555 <Electronically signed by Darron Cheney MD> Date Darron Cheney MD Cosigner Signature (If Indicated): Date CC: Octaviano Franco MD LACTIC ACID Collected: 12/16/2017 Status: F Source: [place] 5:15 AM [facility] REPOSITORY Order Comment: Yes/No query for Sepsis Lactate Rule Y TYPE CODE TESTS RESULT OUT OF REFERENCE UNITS RANGE LAB L503.6005 0.4-2.0 mmol/L High LACTIC ACID 2.1 Result Comment: Critical Result(s) Called at: 05:56:33 12/16/2017 by: Nabil Fine to dr. cheney Performed By: #### L503.6005 #### [facility] [address] [place], [place], [address] Observed: 12/16/2017 Status: F Source: [place] CULTURE, BLOOD (WB) 5:15 AM [facility] REPOSITORY BC No growth in 5 days. Performed By: #### M200.1000 #### [facility] [address] [place], [address] COMPREHENSIVE METABOLIC Collected: 12/16/2017 Status: F Source: [place] PROFIL 4:05 AM [facility] REPOSITORY TYPE CODE TESTS RESULT OUT [...] GAP 9 Performed By: #### L500.4050 #### [facility] [place], [address] CBC W/DIFF, AUTOMATED Collected: 12/16/2017 Status: F Source: [place] 4:05 AM [facility] REPOSITORY TYPE CODE TESTS RESULT OUT [...] Normal RARE Performed By: #### L100.0100 #### [facility] [address] [place], [address] ERYTHROCYTE SED RATE Collected: 12/16/2017 Status: F Source: [place] 4:05 AM [facility] REPOSITORY TYPE CODE TESTS RESULT OUT OF RANGE REFERENCE UNITS LAB L102.0000 0-30 mm/hr High SED RATE 32 Performed By: #### L101.9900 #### [facility] [address] [place], [address] HEMOGLOBIN A1C Collected: 12/16/2017 Status: F Source: [place] 4:05 AM [facility] REPOSITORY TYPE CODE TESTS RESULT OUT OF RANGE REFERENCE UNITS LAB L501.9985 4.2-6.3 % Normal HGB A1C 5.9 Performed By: #### L501.9985 #### [facility] [address] [place], [address] CHEST 1 VIEW Observed: 12/16/2017 Status: F Source: [place] (PORTABLE) 3:40 AM [facility] REPOSITORY [facility] Imaging Services [address] [place] [address] Chest 1 View (Portable) MR#: [id number] Acct: [id number] Name: NIKKI VIZCARRA Rep #: [id number] : 1945 F 72 From: Jurgen Ledesma MD PCP: Salvador HATCH,Octaviano [facility] Status: REG ER Study: Chest 1 View (Portable) Date of Exam: 12/16/17 Exam# [id number] Ordering Dr: Darron Cheney MD STUDY: X-RAY [...] CC: Darron Cheney MD; Octaviano Franco MD Construction Ironworker 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: Signed BRAIN/HEAD WITHOUT Observed: 12/16/2017 Status: F Source: [place] CONTRAST 3:25 AM [facility] REPOSITORY [facility] Imaging Services [address] [place] [address] Brain/Head without Contrast MR#: [id number] Acct: [id number] Name: NIKKI VIZCARRA Rep #: [id number] : 1945 F 72 From: Jurgen Ledesma MD PCP: Octaviano Franco MD, Chi Status: REG ER Study: Brain/Head without Contrast Date of Exam: 12/16/17 Exam# [id number] Ordering Dr: Darron Cheney MD STUDY: CT [...] CC: Darron Cheney MD; Octaviano Franco MD Construction Ironworker Helper: Signed EMERGENCY DEPARTMENT Observed: 12/15/2017 Status: F Source: [place] SUMMARY 11:59 PM [facility] REPOSITORY [facility] Medical Records Department [address] [facility] [place] [address] Emergency Department Summary 12/15/17 1824 MR#: [id number] Acct: [id number] Name: NIKKI VIZCARRA Rep #: [id number] : 1945 72 From: Bayron Beach MD [...] leg cellulitis This note was generated with [employer] dictation software. It may contain incorrect words, [...] problems, contact your Primary Care Provider. Call [employer] [facility] ([phone]) or report to the closest Emergency Room. Call 911 if necessary. 12/15/17 0959 <Electronically signed by Bayron Beach MD> Date Bayron Beach MD Cosigner Signature (If Indicated): Date CC: Octaviano Franco MD LOWER EXT ARTERIAL Observed: 12/09/2017 Status: F Source: [facility] 11:03 AM [facility] REPOSITORY [facility] Cardiovascular Services [address] [place] [address] 12/09/17 1056 MR#: [id number] Acct: [id number] Name: NIKKI VIZCARRA Rep #: [id number] : 1945 72 From: Jimmy Fermin MD Attending Dr: Bayron Dutton DPM Status: REG RCR Ordering Dr: Date: 12/09/17 Location: [facility] Sex: F C Admitted: Arterial Study [...] HOMERO Dutton; Octaviano Franco MD Date Dictated: 12/09/17 1056 Date Transcribed: 12/09/17 105 Construction Ironworker Helper: ALFREDO Helton VENOUS DUPLEX LOWER Observed: 12/09/2017 Status: F Source: [place] EXTREMITY 10:10 AM [facility] REPOSITORY [facility] Cardiovascular Services [address] [place] [address] Venous Duplex US - Phil Extrem 12/07/1714 MR#: [id number] Acct: [id number] Name: NIKKI VIZCARRA Rep #: [id number] : 1945 72 From: Jimmy Fermin MD [...] preliminary report was called and/or faxed to [facility]. <> Interpretation Summary Deep veins of the [...] OCTAVIANO FRANCO CHI Performed By: Delmis Bird, LIUDMILA, RVT 12/09/17 1009 Date Jimmy Fermin MD CC: DPEboni Dutton; Octaviano Franco MD Date Dictated: 12/07/17 0814 Date Transcribed: 12/09/17 1009 Construction Ironworker Helper: Signed CBC W/DIFF, AUTOMATED Collected: 11/20/2017 Status: F Source: [place] 3:25 PM [facility] REPOSITORY TYPE CODE TESTS RESULT OUT [...] 2+ ANISOCYTOSIS Performed By: #### L100.0100 #### [facility] [address] [place], [address] BASIC METABOLIC Collected: 11/20/2017 Status: F Source: [place] PROFILE (BMP) 3:25 PM [facility] REPOSITORY TYPE CODE TESTS RESULT OUT [...] 9 Performed By: #### L500.2500, L501.5200 #### [facility] [address] [place], [address] MAGNESIUM Collected: 11/20/2017 Status: F Source: [place] 3:25 PM [facility] REPOSITORY TYPE CODE TESTS RESULT OUT OF RANGE REFERENCE UNITS LAB L501.5200 1.6-2.6 mg/dL Normal MG 1.8 Performed By: #### L500.2500, L501.5200 #### [facility] [address] [place], [address] MRSA WOUND DNA BY Collected: 11/20/2017 Status: F Source: [place] PCR 3:25 PM [facility] REPOSITORY Order Comment: Specimen Source? WOUND TYPE CODE TESTS RESULT OUT OF RANGE REFERENCE UNITS LAB L8200.1100 Negative Normal MRSA Negative RESULT LAB L8200.1150 Negative Normal SA RESULT NEGATIVE Performed By: #### L8200.1075 #### [facility] [address] [place], [address] Observed: 11/20/2017 Status: F Source: [place] CULTURE, WOUND 3:25 PM [facility] REPOSITORY Gram Stain Gram Stain 2+ Gram [...] 2 S (NF) indicates non-formulary drug at [facility]. Approval by Infectious Disease Specialist required [...] 1 S (NF) indicates non-formulary drug at [facility]. Approval by Infectious Disease Specialist required [...] >=320 R (NF) indicates non-formulary drug at [facility]. Approval by Infectious Disease Specialist required before non-formulary drugs may be ordered and/or dispensed. Performed By: #### M100.1400 #### [facility] [place], [address] BASIC METABOLIC Collected: 11/13/2017 Status: F Source: [place] PROFILE (BMP) 6:20 AM [facility] REPOSITORY TYPE CODE TESTS RESULT OUT [...] GAP 6 Performed By: #### L500.2500 #### [facility] [address] [place], [address] CBC W/DIFF, AUTOMATED Collected: 11/13/2017 Status: F Source: [place] 6:20 AM [facility] REPOSITORY TYPE CODE TESTS RESULT OUT [...] MICROCYTES 2+ Performed By: #### L100.0100 #### [facility] [address] [place], [address] CBC W/DIFF, AUTOMATED Collected: 10/30/2017 Status: F Source: [place] 6:45 AM [facility] REPOSITORY TYPE CODE TESTS RESULT OUT [...] Lymph 1.47 Performed By: #### L100.0100 #### [facility] [address] [place], [place], [address] BASIC METABOLIC Collected: 10/30/2017 Status: F Source: [place] PROFILE (BMP) 6:45 AM [facility] REPOSITORY TYPE CODE TESTS RESULT OUT [...] GAP 5 Performed By: #### L500.2500 #### [facility] [address] [place], [address] BEDSIDE GLUCOSE Collected: 10/27/2017 Status: F Source: [place] 11:13 AM [facility] REPOSITORY TYPE CODE TESTS RESULT OUT OF REFERENCE UNITS RANGE LAB L501.080 70-110 mg/dL High BEDSIDE GLU 178 Result Comment: MANAGEMENT OF PATIENT CARE PER NURSING PROTOCOL Performed By: #### L501.080 #### [facility] Point of Care [address] [place] [address] DISCHARGE SUMMARY Observed: 10/27/2017 Status: F Source: [place] 9:19 AM [facility] REPOSITORY [facility] Medical Records Department [address] [place] [address] Discharge Summary 10/27/17916 MR#: [id number] Acct: [id number] Name: NIKKI VIZCARRA Rep #: [id number] : 1945 72 From: Douglas Bowman DO PCP: Salvador HATCH,Octaviano Chi Status: ADM [facility] Discharge Date and Diagnosis - Problem List [...] distal RCA 08/29/12 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 Minimal basilar atelectasis. Electronically Signed: Eric Pollard DO at 21:26 EDT Tel [phone], Service support , Venous Duplex 10/24/17 21:56 [...] Milo Hughes MD at 12:41 EDT Tel [phone], Service support , Consultations 10/24/17 23:08 Consult: Onc/Wound/aligner barrel and receiver Routine Comment: Reason for Consult:: Bilateral leg wounds Operations: None Procedures: None Summary of Care Provided: The patient is a 72 year old F presents with RLE cellulitis. 1. RLE cellulitis * improved, station tender, but less severe. * CT leg [...] Care Provider] - Within 2 Weeks Disposition: Jail facility Minutes spent on discharge:: 35 Patient Condition:: Good Medical Necessity - Tobacco Use Smoking Status: Former smoker Meaningful Use Info Meaningful Use Diagnoses (Choose all that apply): None applicable Code Visit Inpatient E AND M: 44312 Disch Hosp 10/27/17918 <Electronically signed by Douglas Jopperi DO> Date Douglas Bowman DO Cosigner Signature (if applicable): Date CC: Douglas Bowman DO; Octaviano Franco MD Signed TRANSFER TO EXTENDED Observed: 10/27/2017 Status: F Source: [facility] 9:16 AM [facility] REPOSITORY [facility] Medical Records Department [address] [place] [address] Transfer to [facility] Care MR#: [id number] Acct: [id number] Name: NIKKI VIZCARRA Rep #: [id number] : 1945 72 From: Douglas Bowman DO PCP: Octaviano Franco MD, Chi Status: ADM IN NIKKI VIZCARRA (Patient) (Health Ins. Claim No.) (Day of Discharge to Facility) Certification of patient admission REQUIRED AT TIME OF ADMISSION. I CERTIFY THAT POST-HOSPITAL F SERVICES ARE REQUIRED TO BE GIVEN ON AN IN-PATIENT BASIS BECAUSE OF THE ABOVE NAMED PATIENT'S NEED FOR PRISON CARE ON A CONTINUING BASIS FOR THE CONDITION(S) FOR WHICH HE/SHE WAS RECEIVING IN-PATIENT HOSPITAL SERVICES PRIOR TO HIS/HER TRANSFER TO THE F. 10/27/17 0916 <Electronically signed by Douglas Bowman DO> Date Douglas Bowman DO - Diet 10/24/17 22:41 Diet: Regular Diet Food consistency:: Regular Liquid Consistency:: Regular/Thin Type of Dietary Supplement:: Glucerna 1.5 emilio - Routine Orders/Code Status Routine Lab Work: CBC - Qmonday, BMP - Q sunday Code Status: Full [...] 10/27/2017 Status: F Source: [place] 8:50 AM [facility] REPOSITORY TYPE CODE TESTS RESULT OUT [...] Normal 1+ Performed By: #### L100.0100 #### [facility] [address] [place], [place], [address] BASIC METABOLIC Collected: 10/27/2017 Status: F Source: [place] PROFILE ([facility]) 8:50 AM [facility] REPOSITORY TYPE CODE TESTS RESULT OUT [...] GAP 7 Performed By: #### L500.2500 #### [facility] [address] [facility] [place], [place], [address] BEDSIDE GLUCOSE Collected: 10/27/2017 Status: F Source: [place] 6:33 AM [facility] REPOSITORY TYPE CODE TESTS RESULT OUT OF REFERENCE UNITS RANGE LAB L501.080 70-110 mg/dL High BEDSIDE GLU 116 Result Comment: MANAGEMENT OF PATIENT CARE PER NURSING PROTOCOL Performed By: #### L501.080 #### [facility] Point of Care [address] [facility] [place] [address] VANCOMYCIN, TROUGH Collected: 10/26/2017 Status: F Source: [place] LEVEL 11:55 PM [facility] REPOSITORY Order Comment: Comments: Draw 30min prior [...] (Ventilator/Healtcare Associated) -Sepsis PLEASE CONTACT PHARMACY SERVICES (#[id number]) FOR INTERPRETATION OF RESULTS. Performed By: #### L501.8820 #### [facility] [address] [place], [address] BEDSIDE GLUCOSE Collected: 10/26/2017 Status: F Source: [place] 9:17 PM [facility] REPOSITORY TYPE CODE TESTS RESULT OUT OF REFERENCE UNITS RANGE LAB L501.080 70-110 mg/dL High BEDSIDE GLU 169 Result Comment: MANAGEMENT OF PATIENT CARE PER NURSING PROTOCOL Performed By: #### L501.080 #### [facility] Point of Care [address] [place] [address] BEDSIDE GLUCOSE Collected: 10/26/2017 Status: F Source: [place] 4:14 PM [facility] REPOSITORY TYPE CODE TESTS RESULT OUT OF REFERENCE UNITS RANGE LAB L501.080 70-110 mg/dL High BEDSIDE GLU 135 Result Comment: MANAGEMENT OF PATIENT CARE PER NURSING PROTOCOL Performed By: #### L501.080 #### [facility] Point of Care [address] [place] [address] Observed: 10/26/2017 Status: F Source: [place] MRSA/SAID SCREEN 2:00 PM [facility] REPOSITORY Comments: sent by primary INÉS garay MRSA/NILDA SCRN S. AUREUS S. aureus Negative MRSA MRSA Negative Performed By: #### M100.651 #### [facility] [address] [place], [address] BEDSIDE GLUCOSE Collected: 10/26/2017 Status: F Source: [place] 12:02 PM [facility] REPOSITORY TYPE CODE TESTS RESULT OUT OF REFERENCE UNITS RANGE LAB L501.080 70-110 mg/dL High BEDSIDE GLU 157 Result Comment: MANAGEMENT OF PATIENT CARE PER NURSING PROTOCOL Performed By: #### L501.080 #### [facility] Point of Care [address] [place], [place] [address] BEDSIDE GLUCOSE Collected: 10/26/2017 Status: F Source: [place] 8:45 AM [facility] REPOSITORY TYPE CODE TESTS RESULT OUT OF REFERENCE UNITS RANGE LAB L501.080 70-110 mg/dL High BEDSIDE GLU 128 Result Comment: MANAGEMENT OF PATIENT CARE PER NURSING PROTOCOL Performed By: #### L501.080 #### [facility] Laboratory Point of Care [address] [place] [address] CBC W/DIFF, AUTOMATED Collected: 10/26/2017 Status: F Source: [place] 5:50 AM [facility] REPOSITORY TYPE CODE TESTS RESULT OUT [...] Lymph 0.70 Performed By: #### L100.0100 #### [facility] [address] [facility] [place], [place], [address] BASIC METABOLIC Collected: 10/26/2017 Status: F Source: [place] PROFILE (BMP) 5:50 AM [facility] REPOSITORY TYPE CODE TESTS RESULT OUT [...] GAP 10 Performed By: #### L500.2500 #### [facility] [address] [place], [place], [address] BEDSIDE GLUCOSE Collected: 10/25/2017 Status: F Source: [place] 9:58 PM [facility] REPOSITORY TYPE CODE TESTS RESULT OUT OF REFERENCE UNITS RANGE LAB L501.080 70-110 mg/dL High BEDSIDE GLU 150 Result Comment: MANAGEMENT OF PATIENT CARE PER NURSING PROTOCOL Performed By: #### L501.080 #### [facility] Point of Care [address] [place], [place] [address] BEDSIDE GLUCOSE Collected: 10/25/2017 Status: F Source: [place] 3:22 PM [facility] REPOSITORY TYPE CODE TESTS RESULT OUT OF REFERENCE UNITS RANGE LAB L501.080 70-110 mg/dL High BEDSIDE GLU 153 Result Comment: MANAGEMENT OF PATIENT CARE PER NURSING PROTOCOL Performed By: #### L501.080 #### [facility] Point of Care [address] [place], [place] [address] 12 LEAD ELECTROCARDIOGRAM Observed: 10/25/2017 Status: F Source: [place] 1:36 PM [facility] REPOSITORY [facility] Cardiovascular Services [address] [place] [address] 12 Lead EKG 10/24/171953 MR#: [id number] Acct: [id number] Name: NIKKI VIZCARRA Rep #: [id number] : 1945 72 From: Kurtis Barajas MD Attending Dr: Douglas Bowman DO Status: ADM IN Ordering Dr: Jessy Mendoza MD Date: 10/24/17 Location: [facility] Sex: F C Admitted: 10/24/17 Test Reason [...] ECG Confirmed by KURTIS BARAJAS MD ([id number]), magazine editor SHAHNAZ MARINA ([id number]) on 10/25/2017 1:35:58 PM Referred By: LD Confirmed By:KURTIS BARAJAS MD 10/25/17 1336 Date Kurtis Barajas MD CC: Douglas Bowman DO; Jessy Mendoza MD; Octaviano Franco MD Signed BEDSIDE GLUCOSE Collected: 10/25/2017 Status: F Source: [place] 11:50 AM [facility] REPOSITORY TYPE CODE TESTS RESULT OUT OF REFERENCE UNITS RANGE LAB L501.080 70-110 mg/dL High BEDSIDE GLU 131 Result Comment: MANAGEMENT OF PATIENT CARE PER NURSING PROTOCOL Performed By: #### L501.080 #### [facility] Point of Care [address] [place] [address] EXTREMITY LOWER Observed: 10/25/2017 Status: F Source: [place] WITHOUT CONTRA 10:48 AM [facility] REPOSITORY [facility] Imaging Services [address] [place] [address] Extremity Lower without Contra MR#: [id number] Acct: [id number] Name: NIKKI VIZCARRA Rep #: [id number] : 1945 F 72 From: Milo Hughes MD PCP: Salvador HATCH,Octaviano Logan Status: ADM IN Study: Extremity Lower without Contra Date of Exam: 10/25/17 Exam# [id number] Ordering Dr: Douglas Bowman DO STUDY: CT [...] Milo Hughes MD at 12:41 EDT Tel [phone], Service support , CC: Douglas Bowman DO; Octaviano Franco MD Construction Ironworker Helper: Signed CBC W/DIFF, AUTOMATED Collected: 10/25/2017 Status: F Source: [place] 6:00 AM [facility] REPOSITORY TYPE CODE TESTS RESULT OUT [...] Lymph 0.85 Performed By: #### L100.0100 #### [facility] [address] [place], [address] BASIC METABOLIC Collected: 10/25/2017 Status: F Source: [place] PROFILE ([facility]) 6:00 AM [facility] REPOSITORY TYPE CODE TESTS RESULT OUT [...] GAP 7 Performed By: #### L500.2500 #### [facility] [address] [place], [address] MRSA WOUND DNA BY Collected: 10/25/2017 Status: F Source: [place] PCR 5:35 AM [facility] REPOSITORY Order Comment: Reason for Laboratory Test wound culture - MRSA Comments: rt lower extremity Specimen Source? rt lower extremity TYPE CODE TESTS RESULT OUT OF RANGE REFERENCE UNITS LAB L8200.1100 Negative Normal MRSA Negative RESULT LAB L8200.1150 Negative Normal SA RESULT NEGATIVE Performed By: #### L8200.1075 #### [facility] [address] 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 Psychiatric History: No 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 hx [employer] History: No pertinent [employer] history Lives: With Family Smoking Status: Former [...] Xarelto Code Visit Inpatient E AND M: 76129 Init Hosp L3 10/25/17 0158 <Electronically signed by Oziel Angel MD> Date Oziel Angel MD Cosigner Signature: Date (if applicable) CC: Oziel Angel MD; Octaviano Franco MD Signed EMERGENCY DEPARTMENT Observed: 10/25/2017 Status: F Source: [place] SUMMARY 1:10 AM [facility] REPOSITORY [facility] Medical Records Department [address] [place] [address] Emergency Department Summary 10/24/171948 MR#: [id number] Acct: [id number] Name: NIKKI VIZCARRA Rep #: [id number] : 1945 72 From: Jessy Mendoza MD [...] Eric Pollard DO at 21:23 EDT Tel [phone], Service support , Chest X-Ray 10/24/17 20:05 IMPRESSION: Prominent cardiac shadow. Minimal basilar atelectasis. Electronically Signed: Eric Pollard DO at 21:26 EDT Tel [phone], Service support , Emergency Department Course and [...] extremity cellulitis This note was generated with [employer] dictation software. It may contain incorrect words, spelling, and punctuation that were not noted in review of the chart prior to signing ED Disposition - Plan for ED Patient: Disposition: Acute Care [facility] Chief Complaint: Cellulitis What to do if you have Problems For any increased pain, shortness of breath, bleeding, nausea or vomiting, chest pain, or any unexpected problems, contact your Primary Care Provider. Call [facility] ([phone]) or report to the closest Emergency Room. Call 911 if necessary. 10/25/17 0110 <Electronically signed by Jessy Mendoza MD> Date Jessy Mendoza MD Cosigner Signature (If Indicated): Date CC: Octaviano Franco MD VENOUS DUPLEX Observed: 10/24/2017 Status: F Source: [place] IMAG/LIMITED/UNI 9:57 PM [facility] REPOSITORY [facility] Imaging Services [address] [place] [address] Venous Duplex Imag/Limited/Uni MR#: [id number] Acct: [id number] Name: NIKKI VIZCARRA Rep #: [id number] : 1945 F 72 From: Lexi Marina MD PCP: Octaviano Franco MD, Chi Status: ADM IN Study: Venous Duplex Imag/Limited/Uni Date of Exam: 10/24/17 Exam# [id number] Ordering Dr: Jessy Mendoza MD STUDY: VENOUS [...] CC: Jessy Mendoza MD; Octaviano Franco MD Construction Ironworker Helper: Signed Observed: 10/24/2017 Status: F Source: [place] CULTURE, BLOOD (WB) 8:28 PM [facility] REPOSITORY BC No growth in 5 days. Performed By: #### M200.1000 #### [facility] [address] [place], [address] URINALYSIS, COMPLETE Collected: 10/24/2017 Status: F Source: [place] 8:20 PM [facility] REPOSITORY Order Comment: How was Urine Obtained? HANDS ASSEMBLER TO SPECIFY TYPE CODE TESTS RESULT OUT [...] URINE RARE Performed By: #### L400.0001 #### [facility] [address] [place], [place], [id number] Observed: 10/24/2017 Status: F Source: [place] CULTURE, URINE 8:20 PM [facility] REPOSITORY Urine Culture ORGANISM 1: Presumptive E. coli [place] Count 80,000-100,000 Presumptive E. coli: REACTION Amoxacillin/Clavulanic [...] >=320 R (NF) indicates non-formulary drug at [facility]. Approval by Infectious Disease Specialist required before non-formulary drugs may be ordered and/or dispensed. Performed By: #### M100.0650 #### [facility] [address] [place], [place], [address] TIBIA AND FIBULA Observed: 10/24/2017 Status: F Source: [place] 2 VIEWS 7:49 PM [facility] REPOSITORY [facility] Imaging Services [address] [place] [address] Tibia AND Fibula 2 Views MR#: [id number] Acct: [id number] Name: NIKKI VIZCARRA Rep #: [id number] : 1945 F 72 From: Eric Pollard DO PCP: Salvador HATCH,Octaviano Logan Status: REG ER Study: Tibia AND Fibula 2 Views Date of Exam: 10/24/17 Exam# [id number] Ordering Dr: Jessy Mendoza MD STUDY: X-RAY [...] Eric Pollard DO at 21:23 EDT Tel [phone], Service support , CC: Jessy Mendoza MD; Octaviano Franco MD Construction Ironworker Helper: Signed CHEST 1 VIEW Observed: 10/24/2017 Status: F Source: [place] (PORTABLE) 7:49 PM [facility] REPOSITORY [facility] Imaging Services [address] [place] [address] Chest 1 View (Portable) MR#: [id number] Acct: [id number] Name: NIKKI VIZCARRA Rep #: [id number] : 1945 F 72 From: Eric Pollard DO PCP: Salvador HATCH,Octaviano Logan Status: REG ER Study: Chest 1 View (Portable) Date of Exam: 10/24/17 Exam# [id number] Ordering Dr: Jessy Mendoza MD STUDY: X-RAY [...] Eric Pollard DO at 21:26 EDT Tel [phone], Service support , CC: Jessy Mendoza MD; Octaviano Franco MD Construction Ironworker Helper: Signed CBC W/DIFF, AUTOMATED Collected: 10/24/2017 Status: F Source: [place] 7:20 PM [facility] REPOSITORY TYPE CODE TESTS RESULT OUT [...] Lymph 0.89 Performed By: #### L100.0100 #### [facility] [place], [address] PROTHROMBIN TIME W/INR Collected: 10/24/2017 Status: F Source: [place] 7:20 PM [facility] REPOSITORY TYPE CODE TESTS RESULT OUT OF RANGE REFERENCE UNITS LAB L300.4150 11.7-14.9 SECONDS High PROTIME 26.2 LAB L300.4200 Normal INR 2.4 Performed By: #### L300.3900, L300.4310 #### [facility] [address] [place], [address] PARTIAL THROMBOPLAST Collected: 10/24/2017 Status: F Source: [place] TIME 7:20 PM [facility] REPOSITORY TYPE CODE TESTS RESULT OUT OF RANGE REFERENCE UNITS LAB L300.4310 24.1-36.2 Seconds Normal PTT 33.2 Performed By: #### L300.3900, L300.4310 #### [facility] [address] [place], [address] COMPREHENSIVE METABOLIC Collected: 10/24/2017 Status: F Source: [place] VALENZUELA 7:20 PM [facility] REPOSITORY TYPE CODE TESTS RESULT OUT [...] 10 Performed By: #### L500.4050, L501.4010 #### [facility] [address] [place], [address] TROPONIN-I Collected: 10/24/2017 Status: F Source: [place] 7:20 PM [facility] REPOSITORY TYPE CODE TESTS RESULT OUT OF RANGE REFERENCE UNITS LAB L501.4010 <0.045 ng/mL Normal 0.017 TROPONIN-I Result Comment: TROPONIN-I EXPECTED VALUES <0.045 Negative 0.045 - 0.590 Consistent with Cardiac Damage > OR = 0.600 Critical Value Not every elevated troponin is indicative of NH. These values should be used with clinical judgement in examining the patient's clinical picture for diagnosis. To establish a diagnosis of NH versus myocardial injury, there must be a demonstrated rise and/or fall in the troponin values, in addition to ischemic symptoms, EKG changes, new regional wall motion abnormality, and/or angiographical evidence. PLEASE NOTE: REFERENCE RANGES EDITED 17 Performed By: #### L500.4050, L501.4010 #### [facility] [address] [place], [address] LACTIC ACID Collected: 10/24/2017 Status: F Source: [place] 7:20 PM [facility] REPOSITORY Order Comment: Yes/No query for Sepsis Lactate Rule Y TYPE CODE TESTS RESULT OUT OF RANGE REFERENCE UNITS LAB L503.6005 0.4-2.0 mmol/L Normal LACTIC ACID 1.5 Performed By: #### L503.6005 #### [facility] [address] [place], [address] Observed: 10/24/2017 Status: F Source: [place] CULTURE, BLOOD (WB) 7:20 PM [facility] REPOSITORY BC No growth in 5 days. Performed By: #### M200.1000 #### [facility] [address] [place], [address] HH, HEMOGLOBIN AND Collected: 10/13/2017 Status: F Source: [place] HEMATOCRIT 2:04 PM [facility] REPOSITORY Order Comment: RENAL TO [facility] TO [place] TYPE CODE TESTS RESULT OUT OF RANGE REFERENCE UNITS LAB L100.1300 12.0-15.0 g/dl Low HGB 10.2 LAB L100.1400 37-47 % Low HCT 34.7 Performed By: #### L100.0600 #### [facility] [address] [place], [address] RENAL PROFILE Collected: 10/13/2017 Status: F Source: [place] 2:04 PM [facility] REPOSITORY Order Comment: RENAL TO [facility] TO [place] TYPE CODE TESTS RESULT [...] CO2 25.0 Performed By: #### L500.3600 #### [facility] [address] [place], [address] TYPE AND SCREEN Collected: 10/11/2017 Status: P Source: [place] 11:09 AM [facility] REPOSITORY Order Comment: CMV NEG?* N Give When? When Ready Irradiated? N Leukodepleted? Y Reason for Type AND Screen/Red Cells: ANEMIA TYPE CODE TESTS RESULT OUT OF RANGE REFERENCE UNITS LAB B10.0800 A Normal BLOOD TYPE GEL POSITIVE LAB B100.4000 Normal Antibody NEGATIVE Screen Performed By: #### B101.7450 #### [facility] [address] [place], [address] TYPE AND SCREEN Collected: 10/11/2017 Status: F Source: [place] 11:09 AM [facility] REPOSITORY Order Comment: CMV NEG?* N Give When? When Ready Irradiated? N Leukodepleted? Y Reason for Type AND Screen/Red Cells: ANEMIA TYPE CODE TESTS RESULT OUT OF RANGE REFERENCE UNITS LAB B10.0800 A Normal BLOOD TYPE GEL POSITIVE LAB B100.4000 Normal Antibody NEGATIVE Screen Performed By: #### B101.7450 #### [facility] [address] [place], [address] RC Collected: 10/11/2017 Status: F Source: [place] 11:09 AM [facility] REPOSITORY TYPE CODE TESTS RESULT OUT OF REFERENCE UNITS RANGE LAB U100.0000 [id number] TRANSFUSED PRODUCT: T AND S with Crossmatch, Red Cells COUNT: 2 Performed By: #### U100.0000 #### [facility] - refer to report for specific site COMPREHENSIVE METABOLIC Collected: 10/10/2017 Status: F Source: [place] PROFIL 2:04 PM [facility] REPOSITORY TYPE CODE TESTS RESULT OUT [...] Performed By: #### L500.4050, L500.4100, L501.9520 #### [facility] [address] [place], [address] LIPID PROFILE Collected: 10/10/2017 Status: F Source: [place] 2:04 PM [facility] REPOSITORY TYPE CODE TESTS RESULT OUT [...] Performed By: #### L500.4050, L500.4100, L501.9520 #### [facility] [address] [place], [place], [address] THYROID STIM HORMONE Collected: 10/10/2017 Status: F Source: [place] (TSH) 2:04 PM [facility] REPOSITORY TYPE CODE TESTS RESULT OUT OF RANGE REFERENCE UNITS LAB L501.9520 0.358-3.74 uIU/mL Normal TSH 0.80 Performed By: #### L500.4050, L500.4100, L501.9520 #### [facility] [address] [place], [place], [address] CBC W/DIFF, AUTOMATED Collected: 10/10/2017 Status: F Source: [place] 2:04 PM [facility] REPOSITORY TYPE CODE TESTS RESULT OUT [...] Lymph 1.44 Performed By: #### L100.0100 #### [facility] [address] [place], [address] SHOULDER MIN 2 VIEWS Observed: 10/05/2017 Status: F Source: [place] 12:14 PM [facility] REPOSITORY [facility] Imaging Services [address] [place] [address] Shoulder min 2 Views MR#: [id number] Acct: [id number] Name: NIKKI VIZCARRA Rep #: [id number] : 1945 F 72 From: Lester Maurer MD PCP: Salvador HATCH,Octaviano Logan Status: REG CLI Study: Shoulder min 2 Views Date of Exam: 10/05/17 Exam# [id number] Ordering Dr: Octaviano Franco MD STUDY: X-RAY [...] Service support , CC: Octaviano Franco MD Construction Ironworker Helper: Signed SHOULDER MIN 2 VIEWS Observed: 10/05/2017 Status: F Source: [place] 12:14 PM [facility] REPOSITORY [facility] Imaging Services [address] [place] [address] Shoulder min 2 Views MR#: [id number] Acct: [id number] Name: NIKKI VIZCARRA Rep #: [id number] : 1945 F 72 From: Lester Maurer MD PCP: Octaviano Franco MD, Chi Status: REG CLI Study: Shoulder min 2 Views Date of Exam: 10/05/17 Exam# [id number] Ordering Dr: Octaviano Franco MD STUDY: X-RAY [...] Service support , CC: Octaviano Franco MD Construction Ironworker Helper: Signed RENAL PROFILE Collected: 10/04/2017 Status: F Source: [place] 12:59 PM [facility] REPOSITORY TYPE CODE TESTS RESULT OUT [...] CO2 26.0 Performed By: #### L500.3600 #### [facility] [address] [place], [address] Observed: 10/04/2017 Status: F Source: [place] CULTURE, URINE 12:59 PM [facility] REPOSITORY Urine Culture ORGANISM 1: Presumptive E. coli [place] Count 50,000-80,000 Presumptive E. coli: REACTION Amoxacillin/Clavulanic [...] >=320 R (NF) indicates non-formulary drug at [facility]. Approval by Infectious Disease Specialist required before non-formulary drugs may be ordered and/or dispensed. Performed By: #### M100.0650 #### [facility] [address] [place], [address] LUMBAR SPINE 2 OR 3 Observed: 08/24/2017 Status: F Source: [facility] 9:52 AM [facility] REPOSITORY [facility] Imaging Services [address] [place] [address] Lumbar Spine 2 or 3 Views MR#: [id number] Acct: [id number] Name: NIKKI VIZCARRA Rep #: [id number] : 1945 F 72 From: Lester Maurer MD PCP: Octaviano Franco MD, Chi Status: REG CLI Study: Lumbar Spine 2 or 3 Views Date of Exam: 08/24/17 Exam# [id number] Ordering Dr: Octaviano Franco MD STUDY: X-RAY [...] Service support , CC: Octaviano Franco MD Construction Ironworker Helper: Signed HIPS B/L MIN 2 Observed: 08/24/2017 Status: F Source: [place] VIEWS W/ PELVIS 9:52 AM [facility] REPOSITORY [facility] Imaging Services [address] [place] [address] Hips B/L min 2 views w/ Pelvis MR#: [id number] Acct: [id number] Name: NIKKI VIZCARRA Rep #: [id number] : 1945 F 72 From: Lester Maurer MD PCP: Octaviano Franco MD, Chi Status: REG CLI Study: Hips B/L min 2 views w/ Pelvis Date of Exam: 08/24/17 Exam# [id number] Ordering Dr: Octaviano Franco MD STUDY: X-RAY [...] Service support , CC: Octaviano Franco MD Construction Ironworker Helper: Signed CARDIOLOGY VISIT Observed: 08/23/2017 Status: F Source: [place] REPORT 1:47 PM [facility] REPOSITORY 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 Assessment AND Plan 1. Atherosclerosis of [place] coronary artery of [place] heart without angina pectoris I25.10 PTCA/stent to [...] Code Off vis,est,level 3 Diagnoses Atherosclerosis of [place] coronary artery of [place] heart without angina pectoris I25.10 [place] vs. transplanted heart: [place] heart S/P CABG (coronary artery bypass graft) Z95.1 Presence of stent in coronary artery Z95.5 Paroxysmal atrial fibrillation I48.0 Essential hypertension I10 Hypertension type: essential hypertension Edema, lower extremity R60.0 Coding Level of Care Code Off vis,est,level 3 Diagnoses Atherosclerosis of [place] coronary artery of [place] heart without angina pectoris I25.10 [place] vs. transplanted heart: [place] heart S/P CABG (coronary artery bypass graft) Z95.1 Presence of stent in coronary artery Z95.5 Paroxysmal atrial fibrillation I48.0 Essential hypertension I10 Hypertension type: essential hypertension Edema, lower extremity R60.0 08/23/17 1347 <Electronically signed by Onofre MURPHY> Date Onofre MURPHY Cosigner Signature: Date (if applicable) CC: Octaviano Franco MD ECHO, COMPLETE W/ Observed: 06/18/2017 Status: F Source: [place] CONTRAST 5:10 PM [facility] REPOSITORY [facility] Cardiovascular Services [address] [place] [address] Echo Complete W/ Contrast 06/18/17 1317 MR#: [id number] Acct: [id number] Name: NIKKI VIZCARRA Rep #: [id number] : 1945 72 From: Uriel Luna MD Attending Dr: Uriel Luna MD Status: REG CLI Ordering Dr: Uriel Luna MD Date: 05/14/18 Location: [facility] Sex: F C Admitted: Reason [...] Date Dictated: 06/18/17 1317 Date Transcribed: 06/18/171708 Construction Ironworker Helper: Signed ABD INC DECUB Observed: 06/15/2017 Status: F Source: [place] AND/OR ERECT 1:11 PM [facility] REPOSITORY [facility] Imaging Services [address] [place] [address] Abd Inc Decub and/or Erect MR#: [id number] Acct: [id number] Name: NIKKI VIZCARRA Rep #: [id number] : 1945 F 72 From: Nikolas Savage MD PCP: Salvador HATCH,Octaviano Logan Status: REG CLI Study: Abd Inc Decub and/or Erect Date of Exam: 06/15/17 Exam# [id number] Ordering Dr: Octaviano Franco MD STUDY: X-RAY [...] Service support , CC: Octaviano Franco MD Construction Ironworker Helper: Signed RENAL PROFILE Collected: 06/07/2017 Status: F Source: [place] 1:45 PM [facility] REPOSITORY TYPE CODE TESTS RESULT OUT [...] CO2 30.0 Performed By: #### L500.3600 #### [facility] [address] [place], [address] CARDIOLOGY VISIT Observed: 05/23/2017 Status: F Source: [place] REPORT 5:15 PM [facility] REPOSITORY [facility] [address] [place] [address] OFFICE VISIT Date of Service: 05/23/17 MR#: [id number] Acct: [id number] Name: NIKKI VIZCARRA Rep #: [id number] : 1945 Provider: Uriel Luna MD Age/Sex: 72/F Location: [facility] Status: Signed HPI HPI Details: NIKKI VIZCARRA, [...] issue. She continues to follow at the [facility] wound care center for this. During this [...] week #30 tab 05/23/17 [Rx Confirmed 05/23/17] [facility] Medical History PVD (peripheral vascular disease) (Chronic) Ulcer of left lower extremity with fat layer exposed (Acute) Controlled diabetes mellitus (Chronic) Edema, lower extremity (Chronic) Presence of stent in coronary artery (Chronic) 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) Paroxysmal [...] did have a transthoracic echocardiogram performed at [facility] on 09/01/2016. The results are as noted [...] Her previous cardiac catheterization was performed at [facility] on 08/29/[address] Barajas. The results [...] Her previous PCI procedure was performed at [facility] on 08/29/2012. The results are as noted below. Impression: 10 to 20% in-stent restenosis of the pre-existing stent in the proximal right coronary artery. Successful angioplasty and successful stenting of the 80 to 90% stenosis in the mid to distal right coronary artery. (Drug Eluting) She did have previous CABG performed at [facility] in [place], [place] on 01/03/2011. At that time she received a ARREGUIN to the LAD and an SVG to the second OM. Assessment AND Plan 1. Atherosclerosis of [place] coronary artery of [place] heart without angina pectoris I25.10 PTCA/stent to [...] Code Off vis,est,level 4 Diagnoses Atherosclerosis of [place] coronary artery of [place] heart without angina pectoris I25.10 [place] vs. transplanted heart: [place] heart S/P CABG (coronary artery bypass graft) Z95.1 Presence of stent in coronary artery Z95.5 Paroxysmal atrial fibrillation I48.0 Hyperlipidemia, unspecified hyperlipidemia type E78.5 Hyperlipidemia type: unspecified Essential hypertension I10 Hypertension type: essential hypertension Leg edema R60.0 Time Spent (min) 30 Coding Level of Care Code Off vis,est,level 4 Diagnoses Atherosclerosis of [place] coronary artery of [place] heart without angina pectoris I25.10 [place] vs. transplanted heart: [place] heart S/P CABG (coronary artery bypass graft) [...] DISCHARGE SUMMARY Observed: 05/22/2017 Status: F Source: [place] 5:49 PM [facility] REPOSITORY [facility] Medical Records Department [address] [place] [address] Discharge Summary 05/11/17 1616 MR#: [id number] Acct: [id number] Name: NIKKI VIZCARRA Rep #: [id number] : 1945 72 From: Donn RUIZ PCP: Octaviano Franco MD, Chi Status: DIS FABRICIO Y Location: [place] [address] ADDENDUM by Leigh Ann Ramirez on 05/22/17 [...] was admitted to a monitored bed on PCU and serial cardiac enzymes were negative. A [...] have been written. OBSV E AND M: [id number] Observation care discharge 05/22/17 0949 <Electronically signed by Eboni Ramirez DO> Date Eboni Ramirez DO cc: SARA Reinoso; Leigh Ann [...] distal RCA 08/29/12 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) PTCA/stent [...] acute thoracic pathology. Consultations 05/11/17 00:04 Consult: Onc/Wound/aligner barrel and receiver Routine Comment: Reason for Consult:: Left lower [...] (Choose all that apply): None applicable 05/11/17 7347 <Electronically signed by Donn RUIZ> Date Donn RUIZ 05/22/17 1744<Electronically signed by Eboni Ramirez DO> Cosigner Signature (if applicable): Date Eboni Ramirez DO CC: SARA Reinoso; Leigh Ann Ramirez; Octaviano Franco MD Signed CONSULTATION Observed: 05/18/2017 Status: F Source: [place] 9:49 AM [facility] REPOSITORY [facility] Medical Records Department [address] [place] [address] Consultation 05/17/172158 MR#: [id number] Acct: [id number] Name: NIKKI VIZCARRA Rep #: [id number] : 1945 72 From: Adalid Brown MD [...] No fever or chills. Recently admitted to [facility], discharged on 05/11 on nystatin for thrush [...] distal RCA 08/29/12 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) PTCA/stent [...] 21:28) Hives codeine Adverse Reaction (Unknown, Verified 05/10/17:) Unknown adhesive tape Adverse Reaction (Verified 05/10/17 21:) Rash Home Medications: Ambulatory Orders Medication Instructions [...] AND BLADDER Observed: 05/16/2017 Status: F Source: [place] 12:37 PM [facility] REPOSITORY [facility] Imaging Services [address] [place] [address] Kidney and Bladder MR#: [id number] Acct: [id number] Name: NIKKI VIZCARRA Rep #: [id number] : 1945 F 72 From: Abundio Don MD PCP: Octaviano Franco MD, Chi Status: REG CLI Study: Kidney and Bladder Date of Exam: 05/16/17 Exam# [id number] Ordering Dr: Hodan Cortes DO STUDY: RENAL [...] CC: Hodan Cortes DO; Octaviano Franco MD Construction Ironworker Helper: Signed 12 LEAD ELECTROCARDIOGRAM Observed: 05/15/2017 Status: F Source: [place] 9:08 AM [facility] REPOSITORY [facility] Cardiovascular Services [address] [place] [address] 12 Lead EKG 05/11/17 0532 MR#: [id number] Acct: [id number] Name: NIKKI VIZCARRA Rep #: [id number] : 1945 72 From: Kurtis Barajas MD Attending Dr: Leigh Ann Ramirez Status: DIS FABRICIO Ordering Dr: Kary Monk MD Date: 05/11/17 Location: [facility] Sex: F C Admitted: 05/10/17 Test Reason [...] COMPARISON REQUIRED, DATA IS UNCONFIRMED Confirmed by KURTIS BARAJAS MD ([id number]), magazine editor SHAHNAZ MARINA ([id number]) on 05/15/2017 9:08:15 AM Referred By: JOSUE Confirmed By:KURTIS BARAJAS MD 05/15/17 0908 Date Kurtis Barajas MD CC: Leigh Ann Ramirez; Kary Monk; Octaviano Franco MD Signed 12 LEAD ELECTROCARDIOGRAM Observed: 05/14/2017 Status: F Source: [place] 2:20 PM [facility] REPOSITORY [facility] Cardiovascular Services [address] [place] [address] 12 Lead EKG 05/10/179 MR#: [id number] Acct: [id number] Name: NIKKI VIZCARRA Rep #: [id number] : 1945 72 From: Kurtis Barajas MD Attending Dr: Leigh Ann Ramirez Status: DIS FABRICIO Ordering Dr: Daily Ross MD Date: 05/10/17 Location: [facility] Sex: F C Admitted: 05/10/17 Test Reason [...] Abnormal ECG Confirmed by KURTIS BARAJAS MD ([id number]), magazine editor SHAHNAZ MARINA ([id number]) on 05/14/2017 2:19:36 PM Referred By: YESSI Confirmed By:KURTIS BARAJAS MD 05/14/17 141 Date Kurtis Barajas MD CC: MD Jesus Ross; Leigh Ann Ramirez; Octaviano Franco MD Signed 12 LEAD ELECTROCARDIOGRAM Observed: 05/14/2017 Status: F Source: [place] 2:19 PM [facility] REPOSITORY [facility] [facility] Cardiovascular Services [address] [place] [address] 12 Lead EKG 05/10/175 MR#: [id number] Acct: [id number] Name: NIKKI VIZCARRA Rep #: [id number] : 1945 72 From: Kurtis Barajas MD Attending Dr: Leigh Ann Ramirez Status: DIS FABRICIO Ordering Dr: Daily Ross MD Date: 05/10/17 Location: [facility] Sex: F C Admitted: 05/10/17 Test Reason [...] ECG Confirmed by KURTIS BARAJAS MD ([id number]), magazine editor SHAHNAZ MARINA ([id number]) on 05/14/2017 2:19:19 PM Referred By: YESSI Confirmed By:KURTIS BARAJAS MD 05/14/17 1419 Date Kurtis Barajas MD CC: MD Jesus Ross; Leigh Ann Ramirez; Octaviano Franco MD Signed BEDSIDE GLUCOSE Collected: 05/11/2017 Status: F Source: [place] 4:18 PM [facility] REPOSITORY TYPE CODE TESTS RESULT OUT OF REFERENCE UNITS RANGE LAB L501.080 70-110 mg/dL High BEDSIDE GLU 120 Result Comment: MANAGEMENT OF PATIENT CARE PER NURSING PROTOCOL Performed By: #### L501.080 #### [facility] Laboratory Point of Care [address] [place] [address] DISCHARGE INSTRUCTION Observed: 05/11/2017 Status: F Source: [place] 4:16 PM [facility] REPOSITORY [facility] Medical Records Department [address] [place] [address] Instructions for Home/Discharge Instructions 05/11/17 1615 MR#: [id number] Acct: [id number] Name: NIKKI VIZCARRA Rep #: [id number] : 1945 72 From: Donn RUIZ PCP: Salvador HATCH,Octaviano Desmond Status: ADM FABRICIO You will use the [...] BEDSIDE GLUCOSE Collected: 05/11/2017 Status: F Source: [place] 10:19 AM [facility] REPOSITORY TYPE CODE TESTS RESULT OUT OF REFERENCE UNITS RANGE LAB L501.080 70-110 mg/dL High BEDSIDE GLU 114 Result Comment: MANAGEMENT OF PATIENT CARE PER NURSING PROTOCOL Performed By: #### L501.080 #### [facility] Laboratory Point of Care [address] [place] [address] STRESS REPORT Observed: 05/11/2017 Status: F Source: [place] 9:36 AM [facility] REPOSITORY [facility] Cardiovascular Services [address] [place] [address] MR#: [id number] Acct: [id number] Name: NIKKI VIZCARRA Rep #: [id number] : 1945 72 From: Kurtis Barajas MD [...] MD Date Dictated: 05/11/17932 Date Transcribed: 05/11/17932 Construction Ironworker Helper: CO Signed BEDSIDE GLUCOSE Collected: 05/11/2017 Status: F Source: [place] 5:51 AM [facility] REPOSITORY TYPE CODE TESTS RESULT OUT OF RANGE REFERENCE UNITS LAB L501.080 70-110 mg/dL Normal BEDSIDE GLU 95 Result Comment: MANAGEMENT OF PATIENT CARE PER NURSING PROTOCOL Performed By: #### L501.080 #### [facility] Laboratory Point of Care [address] [place] [address] CBC W/DIFF, AUTOMATED Collected: 05/11/2017 Status: F Source: [place] 5:30 AM [facility] REPOSITORY TYPE CODE TESTS RESULT OUT [...] Performed By: #### L100.0100, L300.3900, L300.4310 #### [facility] Laboratory [address] [place], [address] PROTHROMBIN TIME W/INR Collected: 05/11/2017 Status: F Source: [place] 5:30 AM [facility] REPOSITORY TYPE CODE TESTS RESULT OUT OF RANGE REFERENCE UNITS LAB L300.4150 11.7-14.9 SECONDS High PROTIME 16.5 LAB L300.4200 Normal INR 1.3 Performed By: #### L100.0100, L300.3900, L300.4310 #### [facility] Laboratory [address] [place], [place], [address] PARTIAL THROMBOPLAST Collected: 05/11/2017 Status: F Source: [place] TIME 5:30 AM [facility] REPOSITORY TYPE CODE TESTS RESULT OUT OF RANGE REFERENCE UNITS LAB L300.4310 24.1-36.2 Seconds Normal PTT 30.3 Performed By: #### L100.0100, L300.3900, L300.4310 #### [facility] [address] [place], [place], [address] BASIC METABOLIC Collected: 05/11/2017 Status: F Source: [place] PROFILE (BMP) 5:30 AM [facility] REPOSITORY TYPE CODE TESTS RESULT OUT [...] GAP 8 Performed By: #### L500.2500 #### [facility] [address] [place], [place], [address] TROPONIN-I Collected: 05/11/2017 Status: F Source: [place] 5:30 AM [facility] REPOSITORY Order Comment: 'TROP' Serial specimen #1, #2, #3, or #4: 3 TYPE CODE TESTS RESULT OUT OF RANGE REFERENCE UNITS LAB L501.4010 <0.06 ng/mL Normal < 0.02 TROPONIN-I Result Comment: TROPONIN-I EXPECTED VALUES <0.05 NEGATIVE 0.06 - 0.59 AT RISK OF NH > OR = 0.60 SUGGEST NH Performed By: #### L501.4010 #### [facility] [address] [place], [place], [address] TROPONIN-I Collected: 05/11/2017 Status: F Source: [place] 1:35 AM [facility] REPOSITORY Order Comment: 'TROP' Serial specimen #1, #2, #3, or #4: 2 TYPE CODE TESTS RESULT OUT OF RANGE REFERENCE UNITS LAB L501.4010 <0.06 ng/mL Normal < 0.02 TROPONIN-I Result Comment: TROPONIN-I EXPECTED VALUES <0.05 NEGATIVE 0.06 - 0.59 AT RISK OF NH > OR = 0.60 SUGGEST NH Performed By: #### L501.4010 #### [facility] [address] [place], [place], [address] HISTORY AND PHYSICAL Observed: 05/10/2017 Status: F Source: [place] EXAM 11:42 PM [facility] REPOSITORY [facility] Medical Records Department [address] [place] [address] History and Physical 05/10/17 2330 MR#: [id number] Acct: [id number] Name: NIKKI VIZCARRA Rep #: [id number] : 1945 72 From: Kary Monk MD PCP: Salvador HATCH,Octaviano Logan Status: ADM FABRICIO Y Location: [place] [address] Problem List (1) PVD (peripheral vascular disease) [...] distal RCA 08/29/12 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) PTCA/stent [...] 12/29/14. Psychiatric History: No 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 hx [employer] History: No pertinent [employer] history Smoking Status: Never smoker Alcohol: None [...] Her TIFFANY score is 4. End: Admit [facility] for observation, cardiac monitoring, serial cardiac [...] Continue Xarelto. This note was generated with Everestation software. It may contain incorrect words, spelling, and punctuation that were not noted in checking the note before signing. Code Visit OBSV E AND M: 11208 Initial observation care L3 05/10/17 2342 <Electronically signed by Kary Monk MD> Date Kary Monk MD Cosigner Signature: Date (if applicable) CC: Kary Monk; Octaviano Franco MD Signed EMERGENCY DEPARTMENT Observed: 05/10/2017 Status: F Source: [place] SUMMARY 11:24 PM [facility] REPOSITORY [facility] Medical Records Department [address] [place] [address] Emergency Department Summary 05/10/173 MR#: [id number] Acct: [id number] Name: NIKKI VIZCARRA Rep #: [id number] : 1945 72 From: Daily Ross MD PCP: Octaviano Franco MD, Chi Status: REG ER - ER Visit Summary Date of Service: 05/10/17 Chief Complaint: [] Chest pain this evening folding laundry History of Present Illness: The patient is a 72 F [] history of CABG [place] in 2013, recent injury to left leg [...] stable since her CABG and marti- CABG [place], she has no history of PE she [...] jaw, history of angina, CABG /marti operative [place] 2013, chronic left leg wound secondary to fall This note was generated with [employer] dictation software. It may contain incorrect words, [...] your Primary Care Provider. Call [facility] ([phone]) or report to the closest Emergency Room. Call 911 if necessary. 05/10/17 1972 <Electronically signed by Daily Ross MD> Date Daily Ross MD Cosigner Signature (If Indicated): Date CC: Octaviano Franco MD CHEST 1 VIEW Observed: 05/10/2017 Status: F Source: [place] (PORTABLE) 9:35 PM [facility] REPOSITORY [facility] Imaging Services [address] [place] [address] Chest 1 View (Portable) MR#: [id number] Acct: [id number] Name: NIKKI VIZCARRA Rep #: [id number] : 1945 F 72 From: Andreas Polanco MD PCP: Octaviano Franco MD, Chi Status: REG ER Study: Chest 1 View (Portable) Date of Exam: 05/10/17 Exam# [id number] Ordering Dr: Daily Ross MD STUDY: X-RAY CHEST REASON FOR [...] CC: MD Jesus Ross; Octaviano Franco MD Construction Ironworker Helper: Signed CBC W/DIFF, AUTOMATED Collected: 05/10/2017 Status: F Source: [place] 9:30 PM [facility] REPOSITORY TYPE CODE TESTS RESULT OUT [...] Lymph 2.25 Performed By: #### L100.0100 #### [facility] [address] [place], [address] BASIC METABOLIC Collected: 05/10/2017 Status: F Source: [place] PROFILE (BMP) 9:30 PM [facility] REPOSITORY Order Comment: 'TROP' Serial specimen #1, [...] 7 Performed By: #### L500.2500, L501.4010 #### [facility] [address] [place], [place], [address] TROPONIN-I Collected: 05/10/2017 Status: F Source: [place] 9:30 PM [facility] REPOSITORY Order Comment: 'TROP' Serial specimen #1, #2, #3, or #4: 1 TYPE CODE TESTS RESULT OUT OF RANGE REFERENCE UNITS LAB L501.4010 <0.06 ng/mL Normal < 0.02 TROPONIN-I Result Comment: TROPONIN-I EXPECTED VALUES <0.05 NEGATIVE 0.06 - 0.59 AT RISK OF NH > OR = 0.60 SUGGEST NH Performed By: #### L500.2500, L501.4010 #### [facility] [address] [place], [place], [address] MRSA WOUND DNA BY Collected: 05/10/2017 Status: F Source: [place] PCR 12:00 PM [facility] REPOSITORY Order Comment: Comments: L LE INCISION Specimen Source? L LE INCISION TYPE CODE TESTS RESULT OUT OF RANGE REFERENCE UNITS LAB L8200.1100 Negative Normal MRSA Negative RESULT LAB L8200.1150 Negative Normal SA RESULT NEGATIVE Performed By: #### L8200.1075 #### [facility] [address] [place], [address] Observed: 05/10/2017 Status: F Source: [place] CULTURE, DEEP WOUND 12:00 PM [facility] REPOSITORY Comments: L LE INCISION Gram Stain [...] 1 S (NF) indicates non-formulary drug at [facility]. Approval by Infectious Disease Specialist required [...] Lactamase Negative Performed By: #### M100.1500 #### [facility] [address] [facility] [place], [address] CBC W/DIFF, AUTOMATED Collected: 05/09/2017 Status: F Source: [place] 3:05 PM [facility] REPOSITORY TYPE CODE TESTS RESULT OUT [...] Lymph 1.41 Performed By: #### L100.0100 #### [facility] [address] [place], [address] BASIC METABOLIC Collected: 05/09/2017 Status: F Source: [place] PROFILE ([facility]) 3:05 PM [facility] REPOSITORY TYPE CODE TESTS RESULT OUT [...] GAP 9 Performed By: #### L500.2500 #### [facility] [address] [place], [address] CBC W/DIFF, AUTOMATED Collected: 05/01/2017 Status: F Source: [place] 3:05 PM [facility] REPOSITORY TYPE CODE TESTS RESULT OUT [...] Lymph 1.77 Performed By: #### L100.0100 #### [facility] [address] [place], [address] BASIC METABOLIC Collected: 05/01/2017 Status: F Source: [place] PROFILE ([facility]) 3:05 PM [facility] REPOSITORY TYPE CODE TESTS RESULT OUT [...] GAP 10 Performed By: #### L500.2500 #### [facility] [address] [place], [address] CBC W/DIFF, AUTOMATED Collected: 04/27/2017 Status: F Source: [place] 12:51 PM [facility] REPOSITORY TYPE CODE TESTS RESULT OUT [...] Lymph 2.42 Performed By: #### L100.0100 #### [facility] [address] [place], [address] VITAMIN D,25 HYDROXY Collected: 04/27/2017 Status: F Source: [place] 12:51 PM [facility] REPOSITORY TYPE CODE TESTS RESULT OUT OF REFERENCE UNITS RANGE LAB L506.1000 29.95-100.01 ng/mL Low Vitamin D 20.0 25-OH Result Comment: Vitamin D 25(OH) Status Range Deficiency <20 ng/mL (50nmol/L) Insuffciency 20 - 30 ng/mL (50 - 75 nmol/L) Sufficiency 30 - 100 ng/mL (75 - 250 nmol/L) Toxicity >100 ng/mL (>250 nmol/L) Performed By: #### L506.1000 #### [facility] [address] [place], [address] COMPREHENSIVE METABOLIC Collected: 04/27/2017 Status: F Source: [facility] 12:51 PM [facility] REPOSITORY TYPE CODE TESTS RESULT OUT [...] Performed By: #### L500.4050, L500.4100, L501.9520 #### [facility] [address] [place], [address] LIPID PROFILE Collected: 04/27/2017 Status: F Source: [place] 12:51 PM [facility] REPOSITORY TYPE CODE TESTS RESULT OUT [...] Performed By: #### L500.4050, L500.4100, L501.9520 #### [facility] [address] [facility] [place], [address] THYROID STIM HORMONE Collected: 04/27/2017 Status: F Source: [place] (TSH) 12:51 PM [facility] REPOSITORY TYPE CODE TESTS RESULT OUT OF RANGE REFERENCE UNITS LAB L501.9520 0.358-3.74 uIU/mL Normal TSH 0.77 Performed By: #### L500.4050, L500.4100, L501.9520 #### [facility] [address] [place], [address] EMERGENCY DEPARTMENT Observed: 04/26/2017 Status: F Source: [place] SUMMARY 5:05 PM [facility] REPOSITORY [facility] Medical Records Department [address] [facility] [place] [address] Emergency Department Summary 04/26/17 0941 MR#: [id number] Acct: [id number] Name: NIKKI VIZCARRA Rep #: [id number] : 1945 72 From: Corby Piper MD [...] it well. This note was generated with [employer] dictation software. It may contain incorrect words, [...] problems, contact your Primary Care Provider. Call [employer] [facility] ([phone]) or report to the closest Emergency Room. Call 911 if necessary. 04/26/17 6365 <Electronically signed by Corby Piper MD> Date Corby Piper MD Cosigner Signature (If Indicated): Date CC: Octaviano Franco MD TIBIA AND FIBULA Observed: 04/26/2017 Status: F Source: [place] 2 VIEWS 9:41 AM [facility] REPOSITORY [facility] Imaging Services [address] [place] [address] Tibia AND Fibula 2 Views MR#: [id number] Acct: [id number] Name: NIKKI VIZCARRA Rep #: [id number] : 1945 F 72 From: Milo Hughes MD PCP: Octaviano Franco MD, Chi Status: REG ER Study: Tibia AND Fibula 2 Views Date of Exam: 04/26/17 Exam# [id number] Ordering Dr: Corby Piper MD STUDY: X-RAY - LEFT TIBIA AND FIBULA REASON FOR EXAM: Female, 72 years old. Pain following injury. TECHNIQUE: view(s) of the tibia and fibula were obtained. COMPARISON: None. FINDINGS: Normal visualized tibia. Normal visualized fibula. Diffuse soft tissue swelling. RAD/Tibia AND Fibula 2 Views IMPRESSION: Diffuse soft tissue swelling. Electronically Signed: Milo Hughes MD at 10:56 EDT Tel [phone], Service support , CC: Corby Piper MD; Octaviano Franco MD Construction Ironworker Helper: Signed BRAIN/HEAD WITHOUT Observed: 04/26/2017 Status: F Source: [place] CONTRAST 9:41 AM [facility] REPOSITORY [facility] Imaging Services [address] [place] [address] Brain/Head without Contrast MR#: [id number] Acct: [id number] Name: NIKKI VIZCARRA Rep #: [id number] : 1945 F 72 From: Milo Hughes MD PCP: Salvador HATCH,Octaviano Logan Status: REG ER Study: Brain/Head without Contrast Date of Exam: 04/26/17 Exam# [id number] Ordering Dr: Corby Piper MD STUDY: CT BRAIN WITHOUT CONTRAST [...] Milo Hughes MD at 11:20 EDT Tel [phone], Service support , CC: Corby Piper MD; Octaviano Franco MD Construction Ironworker Helper: Signed LOWER EXT ARTERIAL Observed: 04/23/2017 Status: F Source: [place] STUDY 7:22 AM [facility] REPOSITORY [facility] Cardiovascular Services [address] [place] [address] 04/23/17 0718 MR#: [id number] Acct: [id number] Name: NIKKI VIZCARRA Rep #: [id number] : 1945 72 From: Jimmy Fermin MD [...] MD Date Dictated: 04/23/17717 Date Transcribed: 04/23/17717 Construction Ironworker Helper: ALFREDO Helton VENOUS DUPLEX LOWER Observed: 04/20/2017 Status: F Source: [place] EXTREMITY 7:59 PM [facility] REPOSITORY [facility] Cardiovascular Services [address] [place] [address] Venous Duplex US - Phil Extrem 04/20/17 1010 MR#: [id number] Acct: [id number] Name: NIKKI VIZCARRA Rep #: [id number] : 1945 72 From: Jimmy Fermin MD [...] preliminary report was called and/or faxed to [facility]. Interpretation Summary Deep veins of the lower [...] Date Dictated: 04/20/17 1010 Date Transcribed: 04/20/171958 Construction Ironworker Helper: Signed LUNG SCAN VENT/PERF Observed: 04/19/2017 Status: F Source: [place] 10:53 AM [facility] REPOSITORY [facility] Imaging Services [address] [place] [address] Lung Scan Vent/Perf MR#: [id number] Acct: [id number] Name: NIKKI VIZCARRA Rep #: [id number] : 1945 F 72 From: Milo Hughes MD PCP: Octaviano Franco MD, Chi Status: REG CLI Study: Lung Scan Vent/Perf Date of Exam: 04/19/17 Exam# [id number] Ordering Dr: Octaviano Franco MD CLINICAL: Female, [...] Milo Hughes MD at 12:38 EDT Tel [phone], Service support , CC: Octaviano Franco MD Construction Ironworker Helper: Signed 12 LEAD ELECTROCARDIOGRAM Observed: 04/19/2017 Status: F Source: [place] 10:37 AM [facility] REPOSITORY [facility] Cardiovascular Services [address] [place] [address] 12 Lead EKG 04/18/173 MR#: [id number] Acct: [id number] Name: NIKKI VIZCARRA Rep #: [id number] : 1945 72 From: Erasto Stuart MD Attending Dr: Salvador HATCH,Octaviano Logan Status: REG CLI Ordering Dr: Octaviano Franco MD Date: 04/18/17 Location: [facility] Sex: F C Admitted: Test Reason : [...] Lateral leads Confirmed by ERASTO STUART ([id number]), magazine editor SHAHNAZ MARINA ([id number]) on 04/19/2017 10:36:39 AM Referred By: SALVADOR Confirmed By:ERASTO STUART 04/19/17 1036 Date Erasto Stuart MD CC: Octaviano Franco MD Signed CHEST PA AND LATERAL Observed: 04/19/2017 Status: F Source: [place] 10:35 AM [facility] REPOSITORY [facility] Imaging Services [address] [place] [address] Chest PA and Lateral MR#: [id number] Acct: [id number] Name: NIKKI VIZCARRA Rep #: [id number] : 1945 F 72 From: Milo Hughes MD PCP: Octaviano Franco MD, Chi Status: REG CLI Study: Chest PA and Lateral Date of Exam: 04/19/17 Exam# [id number] Ordering Dr: Octaviano Franco MD STUDY: X-RAY [...] Milo Hughes MD at 11:17 EDT Tel [phone], Service support , CC: Octaviano Franco MD Construction Ironworker Helper: Signed CHEST PA AND LATERAL Observed: 04/18/2017 Status: F Source: [place] 8:47 PM [facility] REPOSITORY [facility] Imaging Services [address] [place] [address] Chest PA and Lateral MR#: [id number] Acct: [id number] Name: NIKKI VIZCARRA Rep #: [id number] : 1945 F 72 From: Lester Maurer MD PCP: Octaviano Franco MD, Chi Status: REG CLI Study: Chest PA and Lateral Date of Exam: 04/18/17 Exam# [id number] Ordering Dr: Octaviano Franco MD STUDY: X-RAY [...] Service support , CC: Octaviano Franco MD Construction Ironworker Helper: Signed CBC W/DIFF, AUTOMATED Collected: 04/18/2017 Status: F Source: [place] 4:56 PM [facility] REPOSITORY TYPE CODE TESTS RESULT OUT [...] Lymph 1.84 Performed By: #### L100.0100 #### [facility] [address] [place], [place], [address] D-DIMER QUANTITATIVE Collected: 04/18/2017 Status: F Source: [place] (DVT/PE) 4:56 PM [facility] REPOSITORY TYPE CODE TESTS RESULT OUT OF RANGE REFERENCE UNITS LAB L300.8000 0.27-0.49 FEU/ug/m High alert D-DIMER 0.57 QUANT Result Comment: D-Dimer ELEVATED (>0.49): Additional studies and clinical assessments are indicated to conclude diagnosis of: Deep Vein Thrombosis (DVT) or Pulmonary Embolism (PE) CRITICAL VALUE VERIFIED. CALLED TO DR FRANCO 04/18/17 [place]6 Penny Nava. RESULTS READ BACK BY SAME . Performed By: #### L300.8000 #### [facility] [address] [place], [place], [address] BNP,B-TYPE NATRIURETIC Collected: 04/18/2017 Status: F Source: [place] PEPTIDE 4:56 PM [facility] REPOSITORY TYPE CODE TESTS RESULT OUT OF RANGE REFERENCE UNITS LAB L503.6620 0-100 pg/mL Normal B-TYPE 62.1 HERON PEP Performed By: #### L503.6620 #### [facility] [address] [place], [place], [address] COMPREHENSIVE METABOLIC Collected: 04/18/2017 Status: F Source: [place] PROFIL 4:56 PM [facility] REPOSITORY Order Comment: 'TROP' Serial specimen #1, [...] By: #### L500.4050, L501.3620, L501.4010, L501.9520 #### [facility] [address] [facility] [place], [place], [address] CPK TOTAL, CREATINE Collected: 04/18/2017 Status: F Source: [place] KINASE 4:56 PM [facility] REPOSITORY Order Comment: 'TROP' Serial specimen #1, #2, #3, or #4: 1 TYPE CODE TESTS RESULT OUT OF RANGE REFERENCE UNITS LAB L501.3620 26-192 U/L Normal CPK TOTAL 70 Performed By: #### L500.4050, L501.3620, L501.4010, L501.9520 #### [facility] [address] [facility] [facility] [place], [place], [address] TROPONIN-I Collected: 04/18/2017 Status: F Source: [place] 4:56 PM [facility] REPOSITORY Order Comment: 'TROP' Serial specimen #1, #2, #3, or #4: 1 TYPE CODE TESTS RESULT OUT OF RANGE REFERENCE UNITS LAB L501.4010 <0.06 ng/mL Normal < 0.02 TROPONIN-I Result Comment: TROPONIN-I EXPECTED VALUES <0.05 NEGATIVE 0.06 - 0.59 AT RISK OF NH > OR = 0.60 SUGGEST NH Performed By: #### L500.4050, L501.3620, L501.4010, L501.9520 #### [facility] [address] [place], [address] THYROID STIM HORMONE Collected: 04/18/2017 Status: F Source: [place] (TSH) 4:56 PM [facility] REPOSITORY Order Comment: 'TROP' Serial specimen #1, #2, #3, or #4: 1 TYPE CODE TESTS RESULT OUT OF RANGE REFERENCE UNITS LAB L501.9520 0.358-3.74 uIU/mL Normal TSH 0.75 Performed By: #### L500.4050, L501.3620, L501.4010, L501.9520 #### [facility] [address] [facility] [place], [place], [address] 12 LEAD ELECTROCARDIOGRAM Observed: 04/18/2017 Status: F Source: [place] 4:09 PM [facility] REPOSITORY [facility] Cardiovascular Services [address] [place] [address] 12 Lead EKG 04/15/17 1514 MR#: [id number] Acct: [id number] Name: NIKKI VIZCARRA Rep #: [id number] : 1945 72 From: Kurtis Barajas MD [...] with repolarization abnormality Abnormal ECG Confirmed by KARL HATCH, KURTIS ([id number]), magazine editor SHAHNAZ MARINA ([id number]) on 04/18/2017 4:09:03 PM Referred By: JAQUELIN Confirmed By:KURTIS BARAJAS MD 04/18/17 1609 Date Kurtis Barajas MD CC: Octaviano Franco MD; Gonzalo Beltrán MD Signed EMERGENCY DEPARTMENT Observed: 04/15/2017 Status: F Source: [place] SUMMARY 5:48 PM [facility] REPOSITORY [facility] Medical Records Department [address] [place] [address] Emergency Department Summary 04/15/17 1516 MR#: [id number] Acct: [id number] Name: NIKKI VIZCARRA Rep #: [id number] : 1945 72 From: Gonzalo Beltrán MD [...] on Coumadin This note was generated with [employer] software. It may contain incorrect words, spelling, [...] your Primary Care Provider. Call [facility] ([phone]) or report to the closest Emergency Room. Call 911 if necessary. 04/15/17 7088 <Electronically signed by Gonzalo Beltrán MD> Date Gonzalo Beltrán MD Cosigner Signature (If Indicated): Date CC: Octaviano Franco MD URINALYSIS, COMPLETE Collected: 04/15/2017 Status: F Source: [place] 4:15 PM [facility] REPOSITORY Order Comment: Order Date: 04/15/17 How [...] 0-5 SEEN Performed By: #### L400.0001 #### [facility] [address] [place], [place], [address] Observed: 04/15/2017 Status: F Source: [place] CULTURE, URINE 4:15 PM [facility] REPOSITORY Urine Culture ORGANISM 1: Presumptive E. coli Rumson Count >100,000 Presumptive E. coli: REACTION Amoxacillin/Clavulanic [...] <=20 S (NF) indicates non-formulary drug at [facility]. Approval by Infectious Disease Specialist required before non-formulary drugs may be ordered and/or dispensed. Performed By: #### M100.0650 #### [facility] [address] [place], [place], [address] CBC W/DIFF, AUTOMATED Collected: 04/15/2017 Status: F Source: [place] 3:23 PM [facility] REPOSITORY TYPE CODE TESTS RESULT OUT [...] Lymph 1.64 Performed By: #### L100.0100 #### [facility] [address] [place], [address] BASIC METABOLIC Collected: 04/15/2017 Status: F Source: [place] PROFILE ([facility]) 3:23 PM [facility] REPOSITORY Order Comment: 'TROP' Serial specimen #1, [...] 8 Performed By: #### L500.2500, L501.4010 #### [facility] [address] [place], [address] TROPONIN-I Collected: 04/15/2017 Status: F Source: [place] 3:23 PM [facility] REPOSITORY Order Comment: 'TROP' Serial specimen #1, #2, #3, or #4: 1 TYPE CODE TESTS RESULT OUT OF RANGE REFERENCE UNITS LAB L501.4010 <0.06 ng/mL Normal < 0.02 TROPONIN-I Result Comment: TROPONIN-I EXPECTED VALUES <0.05 NEGATIVE 0.06 - 0.59 AT RISK OF NH > OR = 0.60 SUGGEST NH Performed By: #### L500.2500, L501.4010 #### [facility] [address] [place], [address] CHEST PA AND LATERAL Observed: 04/15/2017 Status: F Source: [place] 3:06 PM [facility] REPOSITORY [facility] Imaging Services [address] [place] [address] Chest PA and Lateral MR#: [id number] Acct: [id number] Name: NIKIK VIZCARRA Rep #: [id number] : 1945 F 72 From: Andreas Polanco MD PCP: Octaviano Franco MD, Chi Status: REG ER Study: Chest PA and Lateral Date of Exam: 04/15/17 Exam# [id number] Ordering Dr: Gonzalo Beltrán MD STUDY: X-RAY [...] CC: Octaviano Franco MD; Gonzalo Beltrán MD Construction Ironworker Helper: Signed WOUND CTR HISTORY Observed: 04/05/2017 Status: F Source: [place] AND PHYSICAL 1:48 PM [facility] REPOSITORY [facility] [address] [place] [address] Wound Ctr History AND Physical 04/05/17 1318 MR#: [id number] Acct: [id number] Name: NIKKI VIZCARRA Rep #: [id number] : 1945 72 From: Bayron Dutton DPM [...] Date Recorded By Document 04/05/17 10:32 TM [id number] 04/05/17 10:42 TM Wound Center Nurse 1 [Ulcer Assessment] #1,left lower medial lef WC - Nurse 2 - General Ulcer CM Notes Start: 04/05/17 10:32 Freq: Status: Active Protocol: Activity Type Activity Date Activity User E-Sign Co-Sign Detail Recorded Client Recorded Date Recorded By Document 04/05/17 10:33 MW [id number] 04/05/17 10:44 MW Wound Center Nurse 2 [...] Date Recorded By Document 04/05/17 10:33 MW [id number] 04/05/17 10:44 MW Wound Center Nurse 2 [...] 04/05/2017 Status: F Source: [place] 11:20 AM [facility] REPOSITORY Order Comment: FAX RESULTS TO [id number] TYPE CODE TESTS RESULT OUT OF RANGE [...] 1.38 Performed By: #### L100.0100, L101.9900 #### [facility] [address] [place], [place], [address] ERYTHROCYTE SED RATE Collected: 04/05/2017 Status: F Source: [place] 11:20 AM [facility] REPOSITORY Order Comment: FAX RESULTS TO [id number] TYPE CODE TESTS RESULT OUT OF RANGE REFERENCE UNITS LAB L102.0000 0-30 mm/hr Normal SED RATE 18 Performed By: #### L100.0100, L101.9900 #### [facility] [address] [place], [place], [address] HEMOGLOBIN A1C Collected: 04/05/2017 Status: F Source: [place] 11:20 AM [facility] REPOSITORY Order Comment: FAX RESULTS TO [id number] TYPE CODE TESTS RESULT OUT OF RANGE REFERENCE UNITS LAB L501.9985 4.2-6.3 % Normal HGB A1C 6.2 Performed By: #### L501.9985 #### [facility] [address] [place], [address] COMPREHENSIVE METABOLIC Collected: 04/05/2017 Status: F Source: [facility] 11:20 AM [facility] REPOSITORY Order Comment: FAX RESULTS TO [id number] TYPE CODE TESTS RESULT OUT OF RANGE [...] 9 Performed By: #### L500.4050, L506.0500 #### [facility] [address] [place], [place], [address] PREALBUMIN Collected: 04/05/2017 Status: F Source: [place] 11:20 AM [facility] REPOSITORY Order Comment: FAX RESULTS TO [id number] TYPE CODE TESTS RESULT OUT OF RANGE REFERENCE UNITS LAB L506.0500 20.0-40.0 mg/dL Normal PREALBUMIN 34.5 Performed By: #### L500.4050, L506.0500 #### [facility] [address] [place], [address] Observed: 03/16/2017 Status: F Source: [place] CDIFF (MOLECULAR) 2:00 AM [facility] REPOSITORY Cdiff-Molecular Normal Reference Range = Negative C. Diff DNA Negative- No toxigenic C. Diff DNA Detected NAAT METHOD Testing was performed using nucleic acid amplification Performed By: #### M100.6796 #### [facility] [address] [place], [address] ABD INC DECUB Observed: 03/15/2017 Status: F Source: [place] AND/OR ERECT 6:52 PM [facility] REPOSITORY [facility] Imaging Services [address] [facility] [place] [address] Abd Inc Decub and/or Erect MR#: [id number] Acct: [id number] Name: NIKKI VIZCARRA Rep #: [id number] : 1945 F 72 From: Sree Henriquez MD PCP: Salvador HATCH,Otcaviano Logan Status: REG CLI Study: Abd Inc Decub and/or Erect Date of Exam: 03/15/17 Exam# [id number] Ordering Dr: Octaviano Franco MD STUDY: X-RAY [...] Service support , CC: Octaviano Franco MD Construction Ironworker Helper: Signed Observed: 03/15/2017 Status: F Source: [place] CULTURE, URINE 2:49 PM [facility] REPOSITORY Urine Culture ORGANISM 1: Mixed Gram Positive Organisms Rumson Count 1000-10,000 MIX CULTURE Mixed contaminants. Submit a new specimen if indicated. Performed By: #### M100.0650 #### [facility] [place], [address] CBC W/DIFF, AUTOMATED Collected: 03/15/2017 Status: F Source: [place] 2:47 PM [facility] REPOSITORY TYPE CODE TESTS RESULT OUT [...] Lymph 1.80 Performed By: #### L100.0100 #### [facility] [place], [address] COMPREHENSIVE METABOLIC Collected: 03/15/2017 Status: F Source: [facility] 2:47 PM [facility] REPOSITORY TYPE CODE TESTS RESULT OUT [...] GAP 11 Performed By: #### L500.4050 #### [facility] [address] [place], [place], [address] Observed: 03/05/2017 Status: F Source: [place] CULTURE, URINE 3:17 PM [facility] REPOSITORY Urine Culture ORGANISM 1: Enterococcus faecium Rumson Count 25,000-50,000 ORGANISM 2: Pseudomonas aeroginosa Rumson Count 1000-10,000 Enterococcus faecium: REACTION Ampicillin $ >=32 R Benzylpenicillin NF >=64 R Ciprofloxacin $ >=8 R Gentamicin SYN-S S Levofloxacin $ >=8 R Linezolid $$$$ 2 S Nitrofurantoin $ 32 S Streptomycin $ SYN-S S Tetracycline NF >=16 R Vancomycin $ 1 S (NF) indicates non-formulary drug at [facility]. Approval by Infectious Disease Specialist required [...] <=1 S (NF) indicates non-formulary drug at [facility]. Approval by Infectious Disease Specialist required before non-formulary drugs may be ordered and/or dispensed. Performed By: #### M100.0650 #### [facility] [address] [place], [place], [address] Observed: 03/05/2017 Status: F Source: [place] CULTURE, WOUND 3:17 PM [facility] REPOSITORY Gram Stain Gram Stain 3+ Red [...] 1 S (NF) indicates non-formulary drug at [facility]. Approval by Infectious Disease Specialist required before non-formulary drugs may be ordered and/or dispensed. * CLSI guidelines does not recommend testing of cephalosporins. This interpretation is deduced from Beta-lactam/penicillin results. Performed By: #### M100.1400 #### [facility] [address] [place], [place], [address] ALLERGIES ALLERGIES DATE TYPE / CODE NAME / CODE REACTION SEVERITY SOURCE 02/16/2018 Drug ciprofloxacin Hives Unknown [place] Allergy/416 HCl/[id number](RXNO Community 037132([facility] ED CT) Repository 02/16/2018 Drug Penicillins/F212857 Hives Unknown [place] Allergy/416 476(RXNORM) [facility] 437584([facility] ED CT) Repository 02/16/2018 Drug Latex, Natural Rash Unknown [place] Allergy/416 Rubber/[id number](R [facility] 523218([facility] ED CT) Repository 02/16/2018 Drug codeine/P827091204( Unknown Unknown [place] Allergy/416 RXNORM) [facility] 818979([facility] ED CT) Repository 02/16/2018 Drug ciprofloxacin/F0060 Hives Unknown [place] Allergy/416 21055(RXNORM) [facility] 049366([facility] ED CT) Repository 02/16/2018 Drug adhesive Rash Unknown [place] Allergy/416 tape/R887518617(RXN [facility] 551070[facility]) Repository ENCOUNTERS ENCOUNTERS ADMIT/DISCHARGE ACCOUNT ADMITTING ENCOUNTER LOCATION SOURCE NUMBER CLASS 02/16/2018/ [id number] Agyepong, Inpatient [place] Ruy 9 8 [place] Encounter [facility] ing:II7Npgf: Repository YA421Zsk: 1 02/16/2018 [id number] Agyep[place], Ambulatory BMSBuilding:B Ruy 9 [place] [facility] Repository 02/16/2018 [id number] [place], Ambulatory BMSBuilding:B [place] 4 [place] [facility] Repository 02/16/2018 [id number] [place], Ambulatory BMSBuilding:B Ruy 1 [place] [facility] Repository 02/16/2018 [id number] Agyep[place], Ambulatory BMSBuilding:B Ruy 5 [place] [facility] Repository 02/16/2018 [id number] Agyepong, Ambulatory BMSBuilding:B Ruy 7 [place] [facility] Repository 02/14/2018 [id number] Ambulatory Garwin Garwin 4 [facility] ing:WC Repository 01/24/2018/ [id number] Ambulatory Ruy [place] 8 0 [facility] ing:WC Repository 01/14/2018 [id number] Ambulatory [place] 6 [facility] ing:MTLAB Repository 01/04/2018 [id number] Ambulatory Ruy Ruy 8 [facility] ing:MRI Repository 01/03/2018/ [id number] Emergency [place] Ruy 8 3 [facility] ing:ED Repository 01/03/2018/ [id number] Ambulatory [place] Ruy 8 9 [facility] ing:WC Repository 12/28/2017/ [id number] Emergency Ruy [place] 8 0 [facility] ing:ED Repository 12/25/2017 [id number] Ambulatory Ruy Ruy 5 [facility] ing:POLAB3 Repository 12/16/2017/ [id number] Stevie, Inpatient Ruy Ruy 8 9 [place] [facility] ing:MW4Rxwi: Repository SF864Waq: 1 12/16/2017 [id number] Stevie, Ambulatory BMSBuilding:B [place] 1 [place] [facility] Repository 12/16/2017 [id number] [facility], Ambulatory BMSBuilding:B [place] 5 [place] [facility] Repository 12/16/2017 [id number] [facility], Ambulatory BMSBuilding:B [place] 4 [place] [facility] Repository 12/16/2017 [id number] [facility], Ambulatory BMSBuilding:B [place] 8 [place] [facility] Repository 12/16/2017 [id number] [facility], Ambulatory BMSBuilding:B [place] 7 [place] [facility] Repository 12/16/2017 [id number] [facility], Ambulatory BMSBuilding:B [place]uy 9 [place] [facility] Repository 12/15/2017/ [id number] Emergency [place] Ruy 8 5 [facility] ing:ED Repository 12/06/2017 [id number] Ambulatory Ruy [place] 0 [facility] ing:LAB.FUTUR Repository E 11/29/2017/ [id number] Ambulatory Garwin Garwin 8 1 [facility] ing:WC Repository 11/26/2017 [id number] Ambulatory Ruy Ruy 6 [facility] ing:LAB.FUTUR Repository E 11/20/2017 [id number] Ambulatory [place] Ruy 4 [facility] ing:POLAB3 Repository 11/13/2017 [id number] Ambulatory Ruy Ruy 7 [facility] ing:OLS.[facility] Repository C 10/30/2017 [id number] Ambulatory Ruy [place] 6 [facility] ing:OLS.[facility] Repository C 10/24/2017/ [id number] Agyepong, Inpatient Ruy Ruy 8 4 [place] Encounter [facility] ing:DP9Xozb: Repository QE165Pmy: 1 10/24/2017 [id number] Agyepong, Ambulatory BMSBuilding:B [place] 1 [place] [facility] Repository 10/24/2017 [id number] Agyepong, Ambulatory BMSBuilding:B Ruy 7 [place] [facility] Repository 10/24/2017 [id number] Agyepong, Ambulatory BMSBuilding:B Ruy 9 [place] [facility] Repository 10/24/2017 [id number] Agyepong, Ambulatory BMSBuilding:B [place] 4 [place] [facility] Repository 10/24/2017 [id number] Ambulatory Ruy [place] 7 [facility] ing:LAB.FUTUR Repository E 10/18/2017/ [id number] Ambulatory [place] Ruy 8 9 [facility]WC Repository 10/17/2017 [id number] Ambulatory [place] 6 [facility] ing:LAB.FUTUR Repository E 10/16/2017 [id number] Ambulatory Garwin Garwin 3 [facility] ing:LAB.FUTUR Repository E 10/13/2017 [id number] Ambulatory Garwin [place] 1 [facility] ing:POLAB3 Repository 10/12/2017 [id number] Ambulatory Ruy [place] 8 [facility] ing:MEDOUTP Repository 10/12/2017 [id number] Ambulatory Garwin Gar[place] 9 [facility] ing:LAB.FUTUR Repository E 10/10/2017 [id number] Ambulatory Garwin Gar[place] 4 [facility] ing:POLAB3 Repository 10/05/2017 [id number] Ambulatory [place] Ruy 4 [facility] ing:RAD Repository 10/04/2017 [id number] Ambulatory [place] Ruy 2 [facility] ing:LAB Repository 10/04/2017/ [id number] Ambulatory Ruy Ruy 8 2 [facility] ing:WC Repository 08/30/2017/ [id number] Ambulatory Ruy Ruy 8 1 [facility] ing:WC Repository 08/24/2017 [id number] Ambulatory Ruy Ruy 7 [facility] ing:RAD Repository 08/22/2017/ [id number] Ambulatory BMSBuilding:B Ruy 8 3 [facility] Repository 08/02/2017/ [id number] Ambulatory Ruy Ruy 8 5 [facility] ing:WC Repository 07/05/2017/ [id number] Ambulatory Ruy Ruy 8 1 [facility] ing:WC Repository 06/18/2017 [id number] Ambulatory Ruy [place] 6 [facility] ing:CVS Repository 06/18/2017 [id number] Ambulatory BMSBuilding:W Ruy 5 [facility] Repository 06/15/2017 [id number] Ambulatory Garwin Garwin 6 [facility] ing:RAD Repository 06/13/2017 [id number] Ambulatory BMSBuilding:B Ruy 3 [facility] Repository 06/13/2017 [id number] Ambulatory Ruy [place] 4 [facility] ing:LAB.FUTUR Repository E 06/07/2017 [id number] Ambulatory Gar[place] Ruy 1 [facility] ing:LAB.FUTUR Repository E 05/31/2017/ [id number] Ambulatory Ruy Ruy 8 0 [facility] ing:WC Repository 05/23/2017/ [id number] Ambulatory BMSBuilding:B Ruy 8 5 [facility] Repository 05/16/2017 [id number] Ambulatory Ruy [place] 2 [facility] ing:US Repository 05/11/2017/ [id number] Ambulatory BMSBuilding:W Ruy 8 5 [facility] Repository 05/11/2017/ [id number] Ambulatory BMSBuilding:W Ruy 8 3 [facility] Repository 05/10/2017/ [id number] [place], Ambulatory Ruy [facility]uy 8 3 [facility] ing:PCURoom: Repository LHN227Xsj: 1 05/10/2017 [id number] [place], Ambulatory BMSBuilding:B Ruy 6 [place] [facility] Repository 05/10/2017 [id number] [place], Ambulatory BMSBuilding:B Ruy 9 [place] [facility] Repository 05/09/2017 [id number] Ambulatory Ruy Ruy 9 [facility] ing:LAB Repository 05/04/2017 [id number] Ambulatory Ruy Ruy 5 [facility] ing:MEDOUTP Repository 05/03/2017/ [id number] Ambulatory Ruy [place] 8 2 [facility] ing:WC Repository 05/01/2017 [id number] Ambulatory Ruy Ruy 7 [facility] ing:POLAB3 Repository 04/27/2017 [id number] Ambulatory [place] Ruy 3 [facility] ing:POLAB3 Repository 04/26/2017/ [id number] Emergency Ruy [place] 8 4 [facility] ing:ED Repository 04/19/2017 [id number] Ambulatory [place] Ruy 6 [facility] ing:NM Repository 04/18/2017 [id number] Ambulatory Ruy Ruy 8 [facility] ing:RAD Repository 04/18/2017 [id number] Ambulatory [place] 7 [facility] ing:POLAB3 Repository 04/18/2017 [id number] Ambulatory BMSBuilding:W [place] 8 [facility] Repository 04/15/2017/ [id number] Emergency Ruy [place] 8 0 [facility] ing:ED Repository 04/11/2017 [id number] [facility]B [facility] 03/16/2017 [id number] Ambulatory Ruy Ruy 9 [facility] ing:LABSPEC Repository 03/15/2017/ [id number] Ambulatory [place] Ruy 8 8 [facility] ing:MEDOUTP Repository 03/15/2017 [id number] Ambulatory [place] 0 [facility] ing:POLAB3 Repository 03/05/2017 [id number] Ambulatory Gar[place] Gar[place] 5 [facility] ing:POLAB3 Repository PAYERS PAYERS ENCOUNTER GUARANTOR PAYER SUBSCRIBER SOURCE 02/16/2018 NIKKI [id number] Primary [facility]KKI [place] [facility]INDA [facility]NOT [id number] Hospital [address]Iem: (330) CONTRACTED*Policy Repository [phone] () Number: [id number] Date:0886-94-29VQ [address] [address]AN: 02/16/2018 Secondary NOT GIVENUNK Ruy Insurance:SELF PAY [facility] Number: Effective Repository Date:2018-02-16 02/16/2018 NIKKI L [id number] Primary NIKKI L [place] Insurance:AARP MCR DOHENYDOB[place] *NOT [id number] Hospital [address]Uqe: (330) CONTRACTED*Policy Repository [phone] () Number: [id number] Date:8252-21-52WU [address] [address]MA: 02/16/2018 Secondary NOT GIVENUNK Ruy Insurance:SELF PAY [facility] Number: Effective Repository Date:2018-02-16 02/16/2018 NIKKI L [id number] Primary NIKKI L [place]uy [place] Insurance:AARP MCR DOHENYDOB: [place] COMP *NOT [id number] Hospital [address]Uje: (330) CONTRACTED*Policy Repository [phone] () Number: [id number] Date:3807-12-36AO [address] [address]LU: 02/16/2018 Secondary NOT GIVENUNK Ruy Insurance:SELF PAY [facility] Number: Effective Repository Date:2018-02-16 02/16/2018 NIKKI L [id number] Primary NIKKI L [place] Insurance:AARP MCR DOHENYDOB: [place] *NOT [id number] Hospital [address]Zus: (330) CONTRACTED*Policy Repository [phone] () Number: [id number] Date:1107-59-32YM [address] [address]SQ: 02/16/2018 Secondary NOT GIVENUNK Ruy Insurance:SELF PAY [facility] Number: Effective Repository Date:2018-02-16 02/16/2018 NIKKI [id number] Primary NIKKI L [place] Insurance:AARP MCR DOHENYDOB: [place] COMP *NOT [id number] Hospital [address]Kic: (627) CONTRACTED*Policy Repository [phone] () Number: [id number] Date:9196-16-90MH [address] [address]MV: 02/16/2018 Secondary NOT GIVENUNK [place] Insurance:SELF PAY [facility] Number: Effective Repository Date:2018-02-16 02/16/2018 NIKKI L [id number] Primary NIKKI L [place] Insurance:AARP MCR DOHENYDOB: [facility] [place] COMP *NOT [id number] [id number]: (673) CONTRACTED*Policy Repository [phone] () Number: [id number] Date:[id number] [address]ZI: 02/16/2018 Secondary NOT GIVENUNK [place] Insurance:SELF PAY [facility] Number: Effective Repository Date:2018-02-16 02/14/2018 NIKKI Limon [id number] Primary NIKKI L [place] Insurance:HUMANA GOLD DOHENYDOB: [facility] [place] MEDICAREPolicy [id number] Hospital [address]Aed: (330) Number: Repository [phone] () [id number] Date:1038-47-89DC[address] [address]FA: 02/14/2018 Secondary NOT GIVENUNK Ruy Insurance:SELF PAY [facility] Number: Effective Repository Date:2018 01/24/2018 NIKKI L [id number] Primary NIKKI L [place] Insurance:HUMANA GOLD DOHENYDOB: [place] MEDIC[place] [id number] Hospital [address]Etb: (330) Number: Repository [phone] () [id number] Date:2478-22-44JN [address] [address]NU: 01/24/2018 Secondary NOT GIVENUNK [place] Insurance:SELF PAY [facility] Number: Effective Repository Date:2018-01-05 01/14/2018 NIKKI L [id number] Primary NIKKI L [place] Insurance:HUMANA GOLD DOHENYDOB: [place]IC[place] [id number] Hospital [address]Exj: (330) Number: Repository [phone] () [id number] Date:3625-78-13XJ [place] [address]WP: 01/14/2018 Secondary NOT GIVENUNK [place] Insurance:SELF PAY [facility] [facility] Number: Effective Repository Date:2018-01-14 01/04/2018 NIKKI L [id number] Primary [place] L [place] Insurance:HUMANA GOLD DOHENYDOB[place] [id number] [facility] [address]Ehf: (330) Number: Repository [phone] () [id number] Date:5375-66-90XC [address] [address]IM: 01/04/2018 Secondary NOT GIVENUNK Ruy Insurance:SELF PAY [facility] Number: Effective Repository Date:2017-12-12 01/03/2018 NIKKI L [id number] Primary NIKKI L Ruy [place] Insurance:HUMANA GOLD DOHENYDOB[place] [id number] Hospital 538[address]Bzm: (330) Number: Repository [phone] () [id number] Date:2992-83-35JB [address] [address]RL: 01/03/2018 Secondary NOT GIVENUNK [place] Insurance:SELF PAY [facility] Number: Effective Repository Date:2018-01-03 01/03/2018 NIKKI Limon [id number] Primary NIKK[place] L [place] Insurance:HUMANA GOLD DOHENYDOB[place] [id number] Hospital 11091Mrp: (330) Number: Repository [phone] () [id number] Date:0094-89-82[place] [address]WP: 01/03/2018 Secondary NOT GIVENUNK [place] Insurance:SELF PAY [facility] Number: Effective Repository Date:2017-12-06 12/28/2017 NIKKI [id number] Primary NIKKI L Gar[place] Insurance:HUMANA GOLD DOHENYDOB: [place] [id number] [place] [id number]: [phone]) Number: Repository [phone] () [id number] Date:0254-02-41[place] [address]WP: 12/28/2017 Secondary NOT GIVENUNK [place] Insurance:SELF PAY [facility] Number: Effective Repository Date:2017-12-28 12/25/2017 NIKKI Limon [id number] Primary NIKKI L Gar[place] Insurance:HUMANA GOLD DOHENYDOB: [place] [id number] [place] [id number]: (330) Number: Repository [phone] () [id number] Date:6904-36-68VY [address] [address]DV: 12/25/2017 Secondary NOT GIVENUNK [place] Insurance:SELF PAY [facility] Number: Effective Repository Date:2017-12-25 12/16/2017 NIKKI Limon [id number] Primary NIKKI L Ruy [place] Insurance:HUMANA GOLD DOHENYDOB: [place] [id number] [place] [id number]: (330) Number: Repository [phone] () [id number] Date:0829-48-20GW [address] [address]EN: 12/16/2017 Secondary NOT GIVENUNK [place] Insurance:SELF PAY [facility] Number: Effective Repository Date:2017-12-16 12/16/2017 NIKKI Limon [id number] Primary NIKKI L R[place] Insurance:HUMANA GOLD DOHENYDOB: [facility] [place] [id number] Hospital 73711Gxs: (330) Number: Repository [phone] () [id number] Date:6050-50-78BC [address] [address]XV: 12/16/2017 Secondary NOT GIVENUNK [place] Insurance:SELF PAY [facility] Number: Effective Repository Date:2017-12-16 12/16/2017 NIKKI L [id number] Primary NIKKI L Ruy [place] Insurance:HUMANA GOLD DOHENYDOB: [facility] [place] [id number] Hospital 14240Goc: (330) Number: Repository [phone] () [id number] Date:7860-67-85UY [address] [address]CV: 12/16/2017 Secondary NOT GIVENUNK [place] Insurance:SELF PAY [facility] Number: Effective Repository Date:2017-12-16 12/16/2017 NIKKI L [id number] Primary NIKKI L [place] Insurance:HUMANA GOLD DOHENYD[facility] [place] [id number] [facility] [address]34Tev: (782) Number: Repository [phone] () [id number] Date:9743-16-07YC [address] [address]TL: 12/16/2017 Secondary NOT GIVENUNK [place] Insurance:SELF PAY [facility] Number: Effective Repository Date:2017-12-16 12/16/2017 NIKKI L [id number] Primary NIKKI L [place] Insurance:HUMANA GOLD DOHENYDOB: [place] [id number] Hospital 17429Jcr: (330) Number: Repository [phone] () [id number] Date:0540-88-41KZ [address] [address]YT: 12/16/2017 Secondary NOT GIVENUNK [place] Insurance:SELF PAY [facility] Number: Effective Repository Date:2017-12-16 12/16/2017 NIKKI L [id number] Primary NIKKI L [place] Insurance:HUMANA GOLD DOHENYDOB: [place] [id number] Ville [id number]: [phone]) Number: Repository [phone] () [id number] Date:4765-10-03AO [place] [address]WP: 12/16/2017 Secondary NOT GIVENUNK [place] Insurance:SELF PAY [facility] Number: Effective Repository Date:2017-12-16 12/16/2017 NIKKI L [id number] Primary NIKKI L [place] Insurance:HUMANA GOLD DOHENYDOB: [place] [id number] Hospital [address]05[address]Yhh: (330) Number: Repository [phone] () [id number] Date:1440-80-17[place] [address]WP: 12/16/2017 Secondary NOT GIVENUNK [place] Insurance:SELF PAY [facility] Number: Effective Repository Date:2017-12-16 12/15/2017 NIKKI L [id number] Primary NIKKI L Ruy [place] Insurance:HUMANA GOLD DOHENYD[facility] [place] [id number] Hospital [address]Hvn: (330) Number: Repository [phone] () [id number] Date:4812-72-62EW [address] [address]GB: 12/15/2017 Secondary NOT GIVENUNK [place] Insurance:SELF PAY [facility] Number: Effective Repository Date:2017-12-15 12/06/2017 NIKKI [id number] Primary NIKKI L Ruy [place] Insurance:HUMANA GOLD DOHENYDOB: [place] [id number] [place] [id number]: [phone]) Number: Repository [phone] () [id number] Date:2013-04-11HX [place] [address]WP: 12/06/2017 Secondary NOT GIVENUNK [place] Insurance:SELF PAY [facility] Number: Effective Repository Date:2017-12-06 11/29/2017 NIKKIRA Braxton [id number] Primary NIKKI L [place] Insurance:HUMANA GOLD DOHENYDOB: [place] [id number] Ville [address]Tel: (330) Number: Repository [phone] () [id number] Date:8908-88-50[place] [address]WP: 11/29/2017 Secondary NOT GIVENUNK [place] Insurance:SELF PAY [facility] Number: Effective Repository Date:2017-11-05 11/26/2017 NIKKI Limon [id number] Primary NIKKI L [place] Insurance:HUMANA GOLD DOHENYDOB: [place] [id number] Ville [id number]: (330) Number: Repository [phone] () [id number] Date:2440-86-70NF [address] [address]CJ: 11/26/2017 Secondary NOT GIVENUNK [place] Insurance:SELF PAY [facility] Number: Effective Repository Date:2017-11-26 11/20/2017 NIKKI L [id number] Primary NIKKI L Ruy [place] Insurance:HU[place]NA G[place] DOHEN[place]DOB[place] [facility]icy [id number] [facility] 59692Mwn: (330) Number: Repository [phone] () [id number] Date:0194-79-05NN [address] [address]LW: 11/20/2017 Secondary NOT GIVENUNK [place] Insurance:SELF PAY [facility] Number: Effective Repository Date:2017-11-20 11/13/2017 NIKKI L [id number] Primary NOT GIVENUNK [place] Insurance:SELF PAY [facility] [address]Cyo: (330) Number: Effective Repository [phone] () Date:2017-11-13 10/30/2017 NIKKI L [id number] Primary NOT GIVENUNK Ruy [place] Insurance:SELF PAY [facility] [address]188Owj: (330) Number: Effective Repository [phone] () Date:2017-10-30 10/24/2017 NIKKI L [id number] Primary NIKKI L Ruy [place] Insurance:[place] G[place] DOHENYDOB: [place] [id number] [facility] 810[address]Dxl: (330) Number: Repository [phone] () [id number] Date:2367-22-79SQ [address] [address]YQ: 10/24/2017 Secondary NOT GIVENUNK [place] Insurance:SELF PAY [facility] Number: Effective Repository Date:2017-10-24 10/24/2017 NIKKI L [id number] Primary NIKKI L Ruy [place] Insurance:HU[place]NA GOLD DOHENYDOB: [place] [id number] Hospital 157[address]Jjs: (330) Number: Repository [phone] () [id number] Date:7833-03-92TP [address] [address]DA: 10/24/2017 Secondary NOT GIVENUNK [place] Insurance:SELF PAY [facility] Number: Effective Repository Date:2017-10-24 10/24/2017 NIKKI Limon [id number] Primary NIKKI L Ruy [place] Insurance:HUMANA GOLD DOHENYDOB: [place] [id number] Hospital 40481Gfg: (330) Number: Repository [phone] () [id number] Date:2412-31-53BI [place] [address]WP: 10/24/2017 Secondary NOT GIVENUNK [place] Insurance:SELF PAY [facility] Number: Effective Repository Date:2017-10-24 10/24/2017 NIKKI Braxton [id number] Primary NIKKI L Ruy [place] Insurance:HU[place] GOLD DOHENYDOB: [place] [id number] [facility] 72426Pok: (330) Number: Repository [phone] () [id number] Date:5519-06-25CW [place] [address]WP: 10/24/2017 Secondary NOT GIVENUNK [place] Insurance:SELF PAY [facility] Number: Effective Repository Date:2017-10-24 10/24/2017 NIKKI Limon [id number] Primary NIKIK L Gar[place] Insurance:HU[place] GOLD DOHENYDOB: [place] [id number] [facility] 31176Cwf: (330) Number: Repository [phone] () [id number] Date:2727-41-69VV [place] 9[address]WP: 10/24/2017 Secondary NOT GIVENUNK [place] Insurance:SELF PAY [facility] Number: Effective Repository Date:2017-10-24 10/24/2017 NIKKI Limon [id number] Primary NIKKI L [place] Insurance:HU[place] GOLD DOHENYDOB: [place] [id number] Hospital 20647Xsf: (330) Number: Repository [phone] () [id number] Date:0957-83-08RF [address] [address]MV: 10/24/2017 Secondary NOT GIVENUNK [place] Insurance:SELF PAY [facility] Number: Effective Repository Date:2017-10-24 10/18/2017 NIKKI Limon [id number] Primary NIKKI L Ruy [place] Insurance:HUMANA GOLD DOHENYDOB: [facility] [place] [id number] Hospital [address]Eyl: (330) Number: Repository [phone] () [id number] Date:7313-01-08VH [address] [address]YZ: 10/18/2017 Secondary NOT GIVENUNK [place] Insurance:SELF PAY [facility] Number: Effective Repository Date:2017-10-06 10/17/2017 NIKKI [id number] Primary NIKKI L Ruy [place] Insurance:HUMANA GOLD DOHENYDOB: [facility] [place] [id number] [facility] 20466Rpm: (330) Number: Repository [phone] () [id number] Date:9328-28-66WE [address] [address]PZ: 10/17/2017 Secondary NOT GIVENUNK [place] Insurance:SELF PAY [facility] Number: Effective Repository Date:2017-10-17 10/16/2017 NIKKI [id number] Primary NIKKI L [place] Insurance:HU[place] G[place] DOHEN[place]DOB[place] [id number] Hospital 86601Jqx: (330) Number: Repository [phone] () [id number] Date:4232-78-60AG [address] [address]VG: 10/16/2017 Secondary NOT GIVENUNK [place] Insurance:SELF PAY [facility] Number: Effective Repository Date:2017-10-16 10/13/2017 NIKKI [id number] Primary NIKKI L Ruy [place] Insurance:HUMANA GOLD DOHENYD[facility] [id number] [facility] 76858Cij: (330) Number: Repository [phone] () [id number] Date:2531-31-95QI [place] 9[address]12[address]WP: 10/13/2017 Secondary NOT GIVENUNK [place] Insurance:SELF PAY [facility] Number: Effective Repository Date:2017-10-11 10/12/2017 NIKKI L [id number] Primary NIKKI L Ruy [place] Insurance:HU[place] GOLD DOHENYDOB[place] [id number] [place] [id number]: (330) Number: Repository [phone] () [id number] Date:4050-16-34VHJASMINE VILLE [address]WP: 10/12/2017 Secondary NOT GIVENUNK [place] Insurance:SELF PAY [facility] Number: Effective Repository Date:2017-10-11 10/12/2017 NIKKI L [id number] Primary NIKKI L Ruy [place] Insurance:HU[place]NA GOLD DOHENYDOB[place] [facility] [id number] [facility] 04481Ezy: (330) Number: Repository [phone] () [id number] Date:5878-36-48IC [place] [address]WP: 10/12/2017 Secondary NOT GIVENUNK [place] Insurance:SELF PAY [facility] Number: Effective Repository Date:2017-10-12 10/10/2017 NIKKI L [id number] Primary NIKKI L Ruy [place] Insurance:HU[place] GOLD DOHENYD[facility] [facility] [id number] Hospital 97296Jyt: (330) Number: Repository [phone] () [id number] Date:8037-14-37WUJASMINE VILLE [address]WP: 10/10/2017 Secondary NOT GIVENUNK [place] Insurance:SELF PAY [facility] Number: Effective Repository Date:2017-10-10 10/05/2017 NIKKI [id number] Primary NIKKI L Ruy [place] Insurance:HU[place] G[place] DOHEN[place]DOB[place] [id number] [place]ille [id number]: (330) Number: Repository [phone] () [id number] Date:5447-52-85KH [address] [address]GW: 10/05/2017 Secondary NOT GIVENUNK [place] Insurance:SELF PAY [facility] Number: Effective Repository Date:2017-10-05 10/04/2017 NIKKI [id number] Primary NIKKI L [place] Insurance:HUMANA GOLD DOHENYDOB: [place] [id number] [place]ille [address]Tel: (330) Number: Repository [phone] () [id number] Date:5381-45-77XO[address] [address]YU: 10/04/2017 Secondary NOT GIVENUNK [place] Insurance:SELF PAY [facility] Number: Effective Repository Date:2017-10-04 10/04/2017 NIKKI Limon [id number] Primary NIKKI L [place] Insurance:HU[place]NA GOLD DOHENYDOB: [place] [id number] [place] [id number]: (330) Number: Repository [phone] () [id number] Date:5478-57-04CW[address] [address]RK: 10/04/2017 Secondary NOT GIVENUNK [place] Insurance:SELF PAY [facility] Number: Effective Repository Date:2017-09-05 08/30/2017 NIKKI Limon [id number] Primary NIKKI L [place] Insurance:HUMANA GOLD DOHENYDOB: [place] [id number] Hospital 77211Sdg: (330) Number: Repository [phone] () [id number] Date:5380-89-10NW [place] [address]WP: 08/30/2017 Secondary NOT GIVENUNK [place] Insurance:SELF PAY [facility] Number: Effective Repository Date:2017-08-05 08/24/2017 NIKKI L [id number] Primary NIKKI L [place] Insurance:HU[place]NA GOLD DOHENYDOB: [place] [id number] Hospital 08105Nxr: (330) Number: Repository [phone] () [id number] Date:4962-38-53DR [address]4601WP: 08/24/2017 Secondary NOT GIVENUNK [place] Insurance:SELF PAY [facility] Number: Effective Repository Date:2017-08-24 08/22/2017 NIKKI L [id number] Primary NIKKI L [place] Insurance:HUMANA GOLD DOHEN[place]DOB[place] [id number] Hospital [address]Wyk: (330) Number: Repository [phone] () [id number] Date:5006-22-63ZD [address] [address]PE: 08/22/2017 Secondary NOT GIVENUNK [place] Insurance:SELF PAY [facility] Number: Effective Repository Date:2017-08-22 08/02/2017 NIKKI L [id number] Primary NIKKI L Ruy [place] Insurance:HU[place] G[place] DOHEN[place]: [place] [id number] Hospital 69186Kxo: (330) Number: Repository [phone] () [id number] Date:3716-39-17ZJ [address] [address]RH: 08/02/2017 Secondary NOT GIVENUNK [place] Insurance:SELF PAY [facility] Number: Effective Repository Date:2017-07-06 07/05/2017 NIKKI Limon [id number] Primary NIKKI L Ruy [place] Insurance:HUMANA GOLD DOHEN[place]DOB: [place] [id number] Hospital 77348Tzq: Number: Repository [phone] [id number] (HP) Date:2555-44-13YY [address]4601WP: 07/05/2017 Secondary NOT GIVENUNK [place] Insurance:SELF PAY [facility] Number: Effective Repository Date:2017-06-05 06/18/2017 NIKKI [id number] Primary NIKKI L Ruy [place] Insurance:HUMANA GOLD DOHENYDOB: [place] [id number] [place] [id number]: Number: Repository [phone] [id number] (HP) Date:8861-08-66YC [address]4601WP: 06/18/2017 Secondary NOT GIVENUNK Ruy Insurance:SELF PAY [facility] Number: Effective Repository Date:2017-05-24 06/18/2017 NIKKI Limon [id number] Primary NIKKI L Ruy [place] Insurance:HUMANA GOLD DOHENYDOB: [place] [id number] [place] [id number]: Number: Repository [phone] [id number] (HP) Date:8252-52-43OW [address] [address]WH: 06/18/2017 Secondary NOT GIVENUNK [place] Insurance:SELF PAY [facility] Number: Effective Repository Date:2017-06-18 06/15/2017 NIKKI Limon [id number] Primary NIKKI L Gar[place] Insurance:HUMANA GOLD DOHENYDOB: [place] [id number] [place] [id number]: Number: Repository [phone] [id number] (HP) Date:5933-51-83PI [address] [place] [address]LK: 06/15/2017 Secondary NOT GIVENUNK [place] Insurance:SELF PAY [facility] Number: Effective Repository Date:2017-06-15 06/13/2017 NIKKI [id number] Primary NIKKI L [place] Insurance:HUMANA GOLD DOHENYDOB: [place] MED[facility]AREY[facility] Centeric [id number] [place] [address]Tel: Number: Repository [phone] [id number] (HP) Date:4985-92-62AP [address] [place] [address]WP: 06/13/2017 Secondary NOT GIVENUNK [place] Insurance:SELF PAY [facility] Number: Effective Repository Date:2017-06-13 06/13/2017 NIKKI [id number] Primary NIKKI L Ruy [place] Insurance:HUMANA GOLD DOHENYDOB: [place] [id number] [place] [id number]: Number: Repository [phone] [id number] (HP) Date:0150-00-89OL [place] 9[address]12[address]WP: 06/13/2017 Secondary NOT GIVENUNK Ruy Insurance:SELF PAY [facility] Number: Effective Repository Date:2017-06-13 06/07/2017 NIKKI Limon [id number] Primary NIKKI L Gar[place] Insurance:HUMANA GOLD DOHENYDOB: [place] [id number] [place]ille [address]Tel: Number: Repository [phone] [id number] (HP) Date:2476-08-93IR [address] [place] [address]UM: 06/07/2017 Secondary NOT GIVENUNK Ruy Insurance:[facility]Y [facility] Number: Effective Repository Date:2017-06-05 05/31/2017 NIKKI Limon [id number] Primary [place]KKI L [place] Insurance:HU[place]NA GOLD DOHENYDOB: [place] [id number] [place] [id number]: Number: Repository [phone] [id number] (HP) Date:7491-90-79WU [address]46[address]WP: 05/31/2017 Secondary NOT GIVENUNK [place] Insurance:SELF PAY [facility] Number: Effective Repository Date:2017-05-06 05/23/2017 NIKKI [id number] Primary NIKKI L Ruy [place] Insurance:HUMANA GOLD DOHENYDOB: [place] [id number] [place] [id number]: Number: Repository [phone] [id number] (HP) Date:6706-20-03QW [address]4601WP: 05/23/2017 Secondary NOT GIVENUNK [place] Insurance:SELF PAY [facility] Number: Effective Repository Date:2017-05-23 05/16/2017 NIKKI Limon [id number] Primary NIKKI L [place] Insurance:HU[place] G[place] DOHEN[place]DOB: [place] [id number] [place] [id number]: Number: Repository [phone] [id number] (HP) Date:9606-93-11PL [address] [address]FL: 05/16/2017 Secondary NOT GIVENUNK Ruy Insurance:SELF PAY [facility] Number: Effective Repository Date:2017-05-16 05/11/2017 NIKKI iLmon [id number] Primary NIKKI L [place] Insurance:HUMANA GOLD DOHENYDOB: [place] [id number] [place] [id number]: Number: Repository [phone] [id number] (HP) Date:6698-26-96IQ [address] [address]JL: 05/11/2017 Secondary NOT GIVENUNK [place] Insurance:SELF PAY [facility] Number: Effective Repository Date:2017-05-11 05/11/2017 NIKKI Limon [id number] Primary NIKKI L Gar[place] Insurance:HUMANA GOLD DOHENYDOB: [facility] [id number] [place] [id number]: Number: Repository [phone] [id number] (HP) Date:8795-53-93JJ [place] 9[address]WP: 05/11/2017 Secondary NOT GIVENUNK Ruy Insurance:SELF PAY [facility] Number: Effective Repository Date:2017-05-11 05/10/2017 NIKKI Limon [id number] Primary NIKKI L [place] Insurance:HUMANA GOLD DOHENYD[facility] [id number] Hospital [address]Nlo: Number: Repository [phone] [id number] (HP) Date:9018-92-23[place] [address]WP: 05/10/2017 Secondary NOT GIVENUNK [place] Insurance:SELF PAY [facility] Number: Effective Repository Date:2017-05-10 05/10/2017 NIKKI Limon [id number] Primary NIKKI L [place] Insurance:HUMANA GOLD DOHENYD[facility] [place] [id number] Hospital [address]Dtr: Number: Repository [phone] [id number] (HP) Date:3744-18-19CA [address] [address]PT: 05/10/2017 Secondary NOT GIVENUNK [place] Insurance:SELF PAY [facility] Number: Effective Repository Date:2017-05-10 05/10/2017 NIKKI Limon [id number] Primary [place]KKI L R[place] Insurance:HU[place] GOLD DOHEN[place] [id number] [place] [address]Tel: Number: Repository [phone] [id number] (HP) Date:1156-97-48AD [place] [id number]: 05/10/2017 Secondary NOT GIVENUNK [place] Insurance:SELF PAY [facility] Number: Effective Repository Date:2017-05-10 05/09/2017 Nikki [id number] Primary Nikki L Ruy [place] Insurance:HUMANA GOLD Do[place]yDOB: [place] [id number] [place]ille [address]Tel: Number: Repository [phone] [id number] (HP) Date:7530-31-99DS [address]WP: 05/09/2017 Secondary NOT GIVENUNK [place] Insurance:SELF PAY [facility] Number: Effective Repository Date:2017-05-09 05/04/2017 Nikki Limon [id number] Primary Nikki L Ruy [place] Insurance:HUMANA GOLD [place]DOB: [place] [id number] Ville [address]Tel: Number: Repository [phone] [id number] (HP) Date:7639-10-18WD [place] [id number]: 05/04/2017 Secondary NOT GIVENUNK [place] Insurance:SELF PAY [facility] Number: Effective Repository Date:2017-05-04 05/03/2017 Nikki Limon [id number] Primary Nikki L Garwin [place] Insurance:HUMANA GOLD DohenyDOB: [place] [id number] Ville [address]Tel: Number: Repository [phone] [id number] (HP) Date:4157-06-76LI [address] [place] [address]FW: 05/03/2017 Secondary NOT GIVENUNK [place] Insurance:SELF PAY [facility] Number: Effective Repository Date:2017-04-05 05/01/2017 Nikki [id number] Primary Nikki L Ruy [place] Insurance:HUMANA GOLD [facility] [place] [id number] Ville [id number]: Number: Repository [phone] [id number] (HP) Date:1260-71-80OQ [address] [place] [id number]: 05/01/2017 Secondary NOT GIVENUNK [place] Insurance:SELF PAY [facility] Number: Effective Repository Date:2017-05-01 04/27/2017 Nikki Limon [id number] Primary Nikki L Ruy [place] Insurance:HUMANA GOLD [facility]henyDOB[facility] [place] [id number] Ville [id number]: Number: Repository [phone] [id number] (HP) Date:0315-22-27OU [place] [address]12[address]WP: 04/27/2017 Secondary NOT GIVENUNK [place] Insurance:SELF PAY [facility] Number: Effective Repository Date:2017-04-27 04/26/2017 Nikki Limon [address] Primary Nikki L [place] Insurance:HUMANA GOLD [place] [id number] [facility] [address]Npi: Number: Repository [phone] [id number] (HP) Date:0109-72-85SG [address] [address]XY: 04/26/2017 Secondary NOT GIVENUNK [place] Insurance:SELF PAY [facility] Number: Effective Repository Date:2017-04-26 04/19/2017 Nikki Guzmány4221 Primary Nikki L Garwin [place] Insurance:HUMANA GOLD [place]: [place] [id number] V[place] [id number]: Number: Repository [phone] [id number] (HP) Date:0379-16-91[place] [address]WP: 04/19/2017 Secondary NOT GIVENUNK [place] Insurance:SELF PAY [facility] Number: Effective Repository Date:2017-04-19 04/18/2017 Nikkira Braxton Guzmány[address] Primary Nikki L Ruy [place] Insurance:HUMANA GOLD [place]: [place] [id number] Ville [id number]: Number: Repository [phone] [id number] (HP) Date:4079-87-12SI [place] [address]WP: 04/18/2017 Secondary NOT GIVENUNK Ruy Insurance:SELF PAY [facility] Number: Effective Repository Date:2017-04-18 04/18/2017 Nikki Limon [address] Primary Nikki L Garwin [place] Insurance:HUMANA GOLD [place]: [place] [id number] Ville [id number]: Number: Repository [phone] [id number] (HP) Date:7928-50-22NI [place] [address]12[address]WP: 04/18/2017 Secondary NOT GIVENUNK [place] Insurance:SELF PAY [facility] Number: Effective Repository Date:2017-04-18 04/18/2017 NIKKI Limon [id number] Primary NIKKI L Ruy [place] Insurance:HUMANA GOLD [place]HENYDOB: [place] [id number] Ville [id number]: Number: Repository [phone] [id number] (HP) Date:3014-88-07LM [address] [place] [address]CP: 04/18/2017 Secondary NOT GIVENUNK [place] Insurance:SELF PAY [facility] Number: Effective Repository Date:2017-04-18 04/15/2017 Nikki Limon Doheny[address] Primary Nikki L Ruy [place] Insurance:HUMANA GOLD DohenyDOB: [facility] [place] MED[place] [id number] [facility] [address]Uly: Number: Repository [phone] [id number] (HP) Date:4104-05-06RG [address] [place] [address]CX: 04/15/2017 Secondary NOT GIVENUNK Ruy Insurance:SELF PAY [facility] Number: Effective Repository Date:2017-04-15 04/11/2017 Nikki Limon Doheny[address] Primary Nikki L Gar[place] Insurance:HUMANA GOLD DohenyDOB: [facility] [place] MED[place] [id number] [facility] [address]Oxp: Number: Repository [phone] [id number] (HP) Date:7160-33-25YO [address] [address]IY: 04/11/2017 Secondary NOT GIVENUNK [place] Insurance:SELF PAY [facility] Number: Effective Repository Date:2017-04-11 03/16/2017 Nikki Limon Do[address] Primary Nikki L Ruy [place] Insurance:HUMANA GOLD DohenyDOB: [facility] [place] MED[place] [id number] [facility] [address]Jrd: Number: Repository [phone] [id number] (HP) Date:1240-66-27QP [address] [address]GA: 03/16/2017 Secondary NOT GIVENUNK [place] Insurance:SELF PAY [facility] Number: Effective Repository Date:2017-03-16 03/15/2017 Nikki Limon [address] Primary Nikki Wong Insurance:HUMANA GOLD [place]DOB: [place] [id number] [place]ille [id number]: Number: Repository [phone] [id number] (HP) Date:4588-77-43ST [address] [address]GL: 03/15/2017 Secondary NOT GIVENUNK Ruy Insurance:SELF PAY [facility] Number: Effective Repository Date:2017-03-15 03/15/2017 Nikki Guzmány4221 Primary Nikki Wong Insurance:HUMANA GOLD [place]DOB: [place] [id number] [place]ille [id number]: Number: Repository [phone] [id number] (HP) Date:4272-29-16ZD [place] [address]WP: 03/15/2017 Secondary NOT GIVENUNK [place] Insurance:SELF PAY [facility] Number: Effective Repository Date:2017-03-15 03/05/2017 Nikki Limon Do[address] Primary Nikki Wong Insurance:HUMANA GOLD [place]DOB: [place] [id number] Hospital [address]Puk: Number: Repository [phone] [id number] (HP) Date:4470-31-63EE [address] [address]HM: 03/05/2017 Secondary NOT GIVENUNK Ruy Insurance:SELF PAY [facility] Number: Effective Repository Date:2017-03-05
== END ==
PROVIDERS: Family Provider Family Medicine Geriatric Medicine; PCP Family Medicine Geriatric Medicine; Referring Provider Urology; Visit Provider Urology
DX: R35.0 Frequency of micturition (principal)
CPT/HCPCS: 87086; 87088; 87186

== ENCOUNTER 2018-01-24 10:00 | Outpatient (RCR) | payer MEDICARE, SELFPAY ==
[2018-01-05 00:49] VITALS: BP 163/86; PULSE 71; RESP 18; TEMP 36.4
[2018-01-10 11:05] VITALS: BP 137/59; PULSE 72; RESP 16; TEMP 37.3; BMI 44.3
--- NOTE | 2018-01-10 14:49 | PN.PCM_ITS ---
(1) Ulcer of right foot with fat layer exposed Status: Inactive Current Visit: No Code(s): L97.512 - Non-pressure chronic ulcer of other part of right foot with fat layer exposed (2) Ulcer of left lower extremity with fat layer exposed Status: Inactive Current Visit: No Code(s): L97.922 - Non-pressure chronic ulcer of unspecified part of left lower leg with fat layer exposed (3) PVD (peripheral vascular disease) Status: Chronic Current Visit: No Code(s): I73.9 - Peripheral vascular disease, unspecified (4) Controlled diabetes mellitus Status: Chronic Current Visit: No Code(s): E11.9 - Type 2 diabetes mellitus without complications (5) Edema, lower extremity Status: Chronic Current Visit: No Code(s): R60.0 - Localized edema Type of Wound Chief Complaint: Left anterior lower leg ulceration that will not heal. History of Wound: This 72 year old female has significant history of diabetes and multiple sclerosis, bilateral traumatic leg wounds, and other comorbidities. She presents to office today after being referred by Dr. Franco. Per his note, the patient had finished up a prescription for keflex and is on rocephin. Patient states that she recently got a new bed. She says since she is short she had to get a stool in order to get onto her bed. She fell on the stool and got an ulcer on the left anterior leg. She says this happed close to two weeks ago and has not seen much of an improvment since. She has been dressing the ulcer site with bacitracin. She denies any purulence, malodor, redness around the ulcer. She also denies any feelings of nausea, vomiting, fever, or chills currently. Progress of Wound: Patient presents for follow up today for dorsal right foot ulcer and left lateral lower leg. She continues to try to keep compression to her lower extremity as instructed, but has been having trouble with this. She also admits to not taking the recommended dose of Lasix, even after discussions at prior visits. She currently denies any feelings of nausea, vomiting, fever, or chills. - Physical Exam Vital Signs Temp Pulse Resp BP 99.2 F H 72 16 137/59 H 01/10/18 11:05 01/10/18 11:05 01/10/18 11:01/10/18 11:05 General: Alert, Oriented x3, Cooperative, No apparent distress Extremities: Capillary Refill Less than 3 Seconds, No Calf Tenderness - Negative Sunita and Abraham sign, Diminished Peripheral Pulses - DP and PT pulses nonpalpable radial pitting lower extremity edema, Edema - Bilateral pitting lower extremity edema Skin: Ulcer/ Wound - Ulcer to right dorsal foot and left lateral lower leg. Bases are noted to be a mixture of adherent slough, fibrin, granular tissue as well as slight surrounding hyperkeratotic tissue. There continues to be no probing to bone, no tracking, no undermining, no purulence, no malodor, no extending cellulitis, no increase in warmth at this time. Wound Measurements and Assessment WC - Nurse 1 - General Ulcer Measurement Start: 01/10/18 11:05 Freq: Status: Active Protocol: Activity Type Activity Date Activity User E-Sign Co-Sign Detail Recorded Client Recorded Date Recorded By Document 01/10/18 11:05 [facility] [id number] 01/10/18 11:21 [facility] 01/10/18 11:05 Wound Center Nurse 1 [Ulcer Assessment] #10 L DORSAL FOOT -Combined with other wound No -Current Size (cm) - Length 0.1 -Current Size (cm) - Width 0.1 -Current Size (cm) - Depth 0.1 -Total Square Cm 0.01 -Epithelialization Large 67-100% #7 RIGHT DORSAL FOOT -Combined with other wound No -Current Size (cm) - Length 0.6 -Current Size (cm) - Width 1.3 -Current Size (cm) - Depth 0.1 -Total Square Cm 0.78 -Photo Taken No -Epithelialization None Present -Tunneling No -Undermining/Tunneling No -Circular Undermining No -Exudate Amt Small (1-33%) -Exudate Type Serosanguineous -Wound Margin Distinct, Outline Attached -Granulation Amt Small (1-33%) -Granulation Quality Red -Slough/Fibrin Yes -Necrosis Amt Large (67-100%) -Necrotic Tissue Type Adherent Slough -Texture (Char-wound Skin Appearance) Scarring -Moisture (Char-wound Skin Appearance Dry/Scaly ) -Color (Char-wound Skin Appearance) Erythema -Temperature (Char-wound Skin No Abnormality Appearance) (Pt Warm) -Tenderness on Palpation (Char-wound No Skin Appearance) -Ulcer Cleansing Wound Cleanser -Foul Odor after Cleansing No -Anesthetic Used 4% Lidocaine Solution #5 Left Lateral Leg superior CLUSTER -Combined with other wound No -Current Size (cm) - Length 1.3 -Current Size (cm) - Width 4.9 -Current Size (cm) - Depth 0.1 -Total Square Cm 6.37 -Photo Taken No -Epithelialization None Present -Tunneling No -Undermining/Tunneling No -Circular Undermining No -Exudate Amt Small (1-33%) -Exudate Type Serosanguineous -Wound Margin Distinct, Outline Attached -Granulation Amt Small (1-33%) -Granulation Quality Red -Slough/Fibrin Yes -Necrosis Amt Large (67-100%) -Necrotic Tissue Type Adherent Slough -Texture (Char-wound Skin Appearance) Scarring -Moisture (Char-wound Skin Appearance Dry/Scaly ) -Color (Char-wound Skin Appearance) Erythema -Temperature (Char-wound Skin No Abnormality Appearance) (Pt Warm) -Tenderness on Palpation (Char-wound No Skin Appearance) -Ulcer Cleansing Wound Cleanser -Foul Odor after Cleansing No -Anesthetic Used 4% Lidocaine Solution [Edema Assessment] -Lower Limb Edema Present Yes -Right Calf (cm) 43 -Right Ankle (cm) 30.1 -Left Calf (cm) 45.2 -Left Ankle (cm) 29.1 WC - Nurse 2 - General Ulcer CM Notes Start: 01/10/18 11:05 Freq: Status: Active Protocol: Activity Type Activity Date Activity User E-Sign Co-Sign Detail Recorded Client Recorded Date Recorded By Document 01/10/18 11:50 DV [id number] 01/10/18 11:55 DV 01/10/18 11:50 Wound Center Nurse 2 [Procedure/Treatment] #7 RIGHT DORSAL FOOT -Time 11:52 -Correct Patient Yes -Correct Side, Site, Position Yes -Correct Procedure Yes -Procedure Performed Yes -Type of Procedure Debridement -Clinical Debridement Subcutaneous -Post Debridement Size (cm) - Length 0.6 -Post Debridement Size (cm) - Width 0.6 -Post Debridement Size (cm) - Depth 0.1 -Total Square Cm 0.36 -Wound/Ulcer Outcome Not Healed -Ulcer Cleansing Rinsed/ Irrigated with Saline -Foul Odor after Cleansing No -Bioengineered Tissue No -Bleeding Controlled with Pressure -Offloading No -Treatment Response Procedure Tolerated Well #9 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 INFERIOR -Time 11:52 -Correct Patient Yes -Correct Side, Site, Position Yes -Correct Procedure Yes -Procedure Performed Yes -Type of Procedure Debridement -Clinical Debridement Subcutaneous -Post Debridement Size (cm) - Length 1.0 -Post Debridement Size (cm) - Width 4.5 -Post Debridement Size (cm) - Depth 0.2 -Total Square Cm 4.50 -Wound/Ulcer Outcome Not Healed -Ulcer Cleansing Rinsed/ Irrigated with Saline -Foul Odor after Cleansing No -Bioengineered Tissue No -Bleeding Controlled with Pressure -Offloading No -Treatment Response Procedure Tolerated Well [See Physician Procedure note for Specifics] Pain Scale: 0-10 Numeric [Pain] -Is Patient Pain Free? Yes Musculoskeletal: Tenderness - With manipulation of ulcer sites Neurological: Sensory exam intact to light touch and pain Psych/Mental Status: Normal Affect, Appropriate Debridement Note Post-Debridement Measurements/Treatment WC - Nurse 2 - General Ulcer CM Notes Start: 01/10/18 11:05 Freq: Status: Active Protocol: Activity Type Activity Date Activity User E-Sign Co-Sign Detail Recorded Client Recorded Date Recorded By Document 01/10/18 11:50 DV [id number] 01/10/18 11:55 DV 01/10/18 11:50 Wound Center Nurse 2 #7 RIGHT DORSAL FOOT -Time 11:52 -Correct Patient Yes -Correct Side, Site, Position Yes -Correct Procedure Yes -Procedure Performed Yes -Type of Procedure Debridement -Clinical Debridement Subcutaneous -Post Debridement Size (cm) - Length 0.6 -Post Debridement Size (cm) - Width 0.6 -Post Debridement Size (cm) - Depth 0.1 -Total Square Cm 0.36 -Wound/Ulcer Outcome Not Healed -Ulcer Cleansing Rinsed/ Irrigated with Saline -Foul Odor after Cleansing No -Bioengineered Tissue No -Bleeding Controlled with Pressure -Offloading No -Treatment Response Procedure Tolerated Well #9 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 INFERIOR -Time 11:52 -Correct Patient Yes -Correct Side, Site, Position Yes -Correct Procedure Yes -Procedure Performed Yes -Type of Procedure Debridement -Clinical Debridement Subcutaneous -Post Debridement Size (cm) - Length 1.0 -Post Debridement Size (cm) - Width 4.5 -Post Debridement Size (cm) - Depth 0.2 -Total Square Cm 4.50 -Wound/Ulcer Outcome Not Healed -Ulcer Cleansing Rinsed/ Irrigated with Saline -Foul Odor after Cleansing No -Bioengineered Tissue No -Bleeding Controlled with Pressure -Offloading No -Treatment Response Procedure Tolerated Well Pain Scale: 0-10 Numeric Is Patient Pain Free? Yes Wound debrided: Right dorsal foot Laterality: Right Type of Debridement: Excisional debridement Anesthesia Used: 4% Lidocaine Solution Depth: in the subcutaneous layer Percentage of wound debrided: 100 Instrument Used: 7mm curette Tissue Removed: Adherent slough, fibrin, hyperkeratotic tissue Severity: Fat Layer Exposed Amount of bleeding with debridement: Mild Bleeding Controlled with: Pressure Patient tolerated procedure well - Additional Wound Wound debrided: Left lateral lower leg Laterality: Left Type of Debridement: Excisional debridement Anesthesia Used: 4% Lidocaine Solution Depth: in the subcutaneous layer Percentage of wound debrided: 100 Instrument Used: 7mm curette Tissue Removed: Adherent slough, fibrin, hyperkeratotic tissue Severity: Fat Layer Exposed Amount of bleeding with debridement: Mild Bleeding Controlled with: Pressure Patient tolerated procedure: Patient tolerated procedure well Assessment/Plan Assessment: Ulcer to left lower leg with fat layer exposed. DM II. Lower extremity edema Plan: Patient was again examined and evaluated today. The left lateral lower leg ulcer and right dorsal foot ulcer were debrided subcutaneously as noted in the clinical panel again today. Once the ulcers were debrided and carefully cleansed, the sites were then dressed with Aquacel Ag, followed by a dry sterile dressing along with tubigrips for compression. The dressing is to be changed in this manner daily. She will do this with the help of family friend, her son, and home health. It was again discussed the importance of keeping the compression from the toes all the way up to the knee. She has not been fully compliant with this in the past and she admits to still not taking her Lasix as prescribed by her primary care doctor. She was instrcuted on the importance of keeping pressure off of all of the ulcer sites at all times while seated. She is to keep her legs raised while seated or lying down, as her son says she sits with her legs in dependent position. I again stressed the importance of compression with the patient's healing. She was instructed to wear the tubigrip and to keep her lower extremities elevated while seated. LEAS and venous doppler studies were reviewed at prior visit and patient will be referred to Dr. Adames with vascular. I recommended a high-protein diet for this patient to supplement ulcer healing. Patient was educated on all signs and symptoms of local and systemic infection, and was instructed to go to the ER immediately should she notice any. All other questions were answered to the patient's satisfaction. The patient will follow-up in clinic in 1 week to check on progress, or sooner if needed.
[2018-01-17 10:06] VITALS: BP 167/92; PULSE 73; RESP 20; TEMP 35.9; BMI 44.3
--- NOTE | 2018-01-17 12:20 | PCM.WC.PN ---
(1) Ulcer of right foot with fat layer exposed Status: Inactive Current Visit: No Code(s): L97.512 - Non-pressure chronic ulcer of other part of right foot with fat layer exposed (2) Ulcer of left lower extremity with fat layer exposed Status: Inactive Current Visit: No Code(s): L97.922 - Non-pressure chronic ulcer of unspecified part of left lower leg with fat layer exposed (3) PVD (peripheral vascular disease) Status: Chronic Current Visit: No Code(s): I73.9 - Peripheral vascular disease, unspecified (4) Controlled diabetes mellitus Status: Chronic Current Visit: No Code(s): E11.9 - Type 2 diabetes mellitus without complications (5) Edema, lower extremity Status: Chronic Current Visit: No Code(s): R60.0 - Localized edema Type of Wound Chief Complaint: Left anterior lower leg ulceration that will not heal. History of Wound: This 72 year old female has significant history of diabetes and multiple sclerosis, bilateral traumatic leg wounds, and other comorbidities. She presents to office today after being referred by Dr. Franco. Per his note, the patient had finished up a prescription for keflex and is on rocephin. Patient states that she recently got a new bed. She says since she is short she had to get a stool in order to get onto her bed. She fell on the stool and got an ulcer on the left anterior leg. She says this happed close to two weeks ago and has not seen much of an improvment since. She has been dressing the ulcer site with bacitracin. She denies any purulence, malodor, redness around the ulcer. She also denies any feelings of nausea, vomiting, fever, or chills currently. Progress of Wound: Patient presents for follow up today for dorsal right foot ulcer and left lateral lower leg. She continues to try to keep compression to her lower extremity as instructed, but has been having trouble with this. She also admits to not taking the recommended dose of Lasix, even after discussions at prior visits. She currently denies any feelings of nausea, vomiting, fever, or chills. - Physical Exam Vital Signs Temp Pulse Resp BP 96.7 F L 73 20 H 167/92 H 01/17/18 10:06 01/17/18 10:06 01/17/18 10:06 01/17/18 10:06 General: Alert, Oriented x3, Cooperative, No apparent distress Extremities: Capillary Refill Less than 3 Seconds, No Calf Tenderness - Negative Sunita and Abraham sign, Diminished Peripheral Pulses - DP and PT pulses nonpalpable due to bilateral pitting edema of the lower extremity, Edema - Bilateral pitting lower extremity edema Skin: Ulcer/ Wound - Ulcer to right dorsal foot and left lateral lower leg. The bases are noted to be a mixture of a adherent slough, fibrin, granular tissue, as well as some slight surrounding hyperkeratotic tissue. There continues to be no probing to bone, no tracking, no undermining, no purulence, no malodor, no extending cellulitis, no increase in warmth at this time. Slight improvement to each ulcer site noted this week. Wound Measurements and Assessment WC - Nurse 1 - General Ulcer Measurement Start: 01/10/18 11:05 Freq: Status: Active Protocol: Activity Type Activity Date Activity User E-Sign Co-Sign Detail Recorded Client Recorded Date Recorded By Document 01/17/18 10:06 DL [id number] 01/17/18 10:13 DL 01/17/18 10:06 Wound Center Nurse 1 [Ulcer Assessment] #7 RIGHT DORSAL FOOT -Current Size (cm) - Length 0.2 -Current Size (cm) - Width 0.1 -Current Size (cm) - Depth 0.1 -Total Square Cm 0.02 -Photo Taken No -Exudate Amt None Present (0 %) -Wound Margin Flat & Intact -Granulation Amt Small (1-33%) -Granulation Quality [place] -Necrosis Amt Small (1-33%) -Necrotic Tissue Type Adherent Slough -Structure Exposed N/A -Texture (Char-wound Skin Appearance) Localized Edema Scarring -Moisture (Char-wound Skin Appearance No Abnormality ) -Color (Char-wound Skin Appearance) Hemosiderin Staining -Temperature (Char-wound Skin No Abnormality Appearance) (Pt Warm) -Tenderness on Palpation (Char-wound No Skin Appearance) -Ulcer Cleansing Rinsed/ Irrigated with Saline -Foul Odor after Cleansing No -Anesthetic Used 4% Lidocaine Solution #9 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 INFERIOR -Current Size (cm) - Length 0.5 -Current Size (cm) - Width 2.8 -Current Size (cm) - Depth 0.1 -Total Square Cm 1.40 -Photo Taken No -Exudate Amt Small (1-33%) -Exudate Type Serosanguineous -Wound Margin Distinct, Outline Attached -Granulation Amt Small (1-33%) -Granulation Quality [place] -Necrosis Amt Large (67-100%) -Necrotic Tissue Type Adherent Slough -Structure Exposed N/A -Texture (Char-wound Skin Appearance) Localized Edema Scarring -Moisture (Char-wound Skin Appearance No Abnormality ) -Color (Char-wound Skin Appearance) Hemosiderin Staining -Temperature (Char-wound Skin No Abnormality Appearance) (Pt Warm) -Tenderness on Palpation (Char-wound No Skin Appearance) -Ulcer Cleansing Rinsed/ Irrigated with Saline -Foul Odor after Cleansing No -Anesthetic Used 4% Lidocaine Solution [Edema Assessment] -Right Calf (cm) 41 -Right Ankle (cm) 27.4 -Left Calf (cm) 45 -Left Ankle (cm) 27.5 Musculoskeletal: Tenderness - With manipulation of ulcer sites Neurological: Sensory exam intact to light touch and pain Psych/Mental Status: Normal Affect, Appropriate Debridement Note Post-Debridement Measurements/Treatment WC - Nurse 2 - General Ulcer CM Notes Start: 01/10/18 11:05 Freq: Status: Active Protocol: Activity Type Activity Date Activity User E-Sign Co-Sign Detail Recorded Client Recorded Date Recorded By Document 01/10/18 11:50 DV [id number] 01/10/18 11:55 DV 01/10/18 11:50 Wound Center Nurse 2 #7 RIGHT DORSAL FOOT -Time 11:52 -Correct Patient Yes -Correct Side, Site, Position Yes -Correct Procedure Yes -Procedure Performed Yes -Type of Procedure Debridement -Clinical Debridement Subcutaneous -Post Debridement Size (cm) - Length 0.6 -Post Debridement Size (cm) - Width 0.6 -Post Debridement Size (cm) - Depth 0.1 -Total Square Cm 0.36 -Wound/Ulcer Outcome Not Healed -Ulcer Cleansing Rinsed/ Irrigated with Saline -Foul Odor after Cleansing No -Bioengineered Tissue No -Bleeding Controlled with Pressure -Offloading No -Treatment Response Procedure Tolerated Well #9 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 INFERIOR -Time 11:52 -Correct Patient Yes -Correct Side, Site, Position Yes -Correct Procedure Yes -Procedure Performed Yes -Type of Procedure Debridement -Clinical Debridement Subcutaneous -Post Debridement Size (cm) - Length 1.0 -Post Debridement Size (cm) - Width 4.5 -Post Debridement Size (cm) - Depth 0.2 -Total Square Cm 4.50 -Wound/Ulcer Outcome Not Healed -Ulcer Cleansing Rinsed/ Irrigated with Saline -Foul Odor after Cleansing No -Bioengineered Tissue No -Bleeding Controlled with Pressure -Offloading No -Treatment Response Procedure Tolerated Well Pain Scale: 0-10 Numeric Is Patient Pain Free? Yes Wound debrided: Right dorsal foot Laterality: Right Type of Debridement: Excisional debridement Anesthesia Used: 4% Lidocaine Solution Depth: in the subcutaneous layer Percentage of wound debrided: 100 Instrument Used: 7mm curette Tissue Removed: Adherent slough, fibrin, hyperkeratotic tissue Severity: Fat Layer Exposed Amount of bleeding with debridement: Mild Bleeding Controlled with: Pressure Patient tolerated procedure well - Additional Wound Wound debrided: Left lateral lower leg Laterality: Left Type of Debridement: Excisional debridement Anesthesia Used: 4% Lidocaine Solution Depth: in the subcutaneous layer Percentage of wound debrided: 100 Instrument Used: 7mm curette Tissue Removed: Adherent slough, fibrin, hyperkeratotic tissue Severity: Fat Layer Exposed Amount of bleeding with debridement: Mild Bleeding Controlled with: Pressure Patient tolerated procedure: Patient tolerated procedure well Assessment/Plan Assessment: Ulcer to left lower leg with fat layer exposed. DM II. Lower extremity edema Plan: Patient was again examined and evaluated today. The left lateral lower leg ulcer and right dorsal foot ulcer were debrided subcutaneously as noted in the clinical panel again today. Once the ulcers were debrided and carefully cleansed, the sites were then dressed with Aquacel Ag, followed by a dry sterile dressing along with tubigrips for compression. The dressing is to be changed in this manner daily. She will do this with the help of family friend, her son, and home health. It was again discussed the importance of keeping the compression from the toes all the way up to the knee. She has not been fully compliant with this in the past and she admits to still not taking her Lasix as prescribed by her primary care doctor. She was instrcuted on the importance of keeping pressure off of all of the ulcer sites at all times while seated. She is to keep her legs raised while seated or lying down. She says that her and her sister recently got new lift chairs that help them keep their lower extremity elevated while seated. I again stressed the importance of compression with the patient's healing. She was instructed to wear the tubigrip and to keep her lower extremities elevated while seated. LEAS and venous doppler studies were reviewed at prior visit and patient will be referred to Dr. Adames with vascular. I recommended a high-protein diet for this patient to supplement ulcer healing. Patient was educated on all signs and symptoms of local and systemic infection, and was instructed to go to the ER immediately should she notice any. All other questions were answered to the patient's satisfaction. The patient will follow-up in clinic in 1 week to check on progress, or sooner if needed.
[2018-01-24 10:49] VITALS: BP 188/76; PULSE 69; RESP 18; TEMP 36.8; BMI 44.3
--- NOTE | 2018-01-24 12:02 | PCM.WC.PN ---
(1) Ulcer of right foot with fat layer exposed Status: Inactive Current Visit: No Code(s): L97.512 - Non-pressure chronic ulcer of other part of right foot with fat layer exposed (2) Ulcer of left lower extremity with fat layer exposed Status: Inactive Current Visit: No Code(s): L97.922 - Non-pressure chronic ulcer of unspecified part of left lower leg with fat layer exposed (3) PVD (peripheral vascular disease) Status: Chronic Current Visit: No Code(s): I73.9 - Peripheral vascular disease, unspecified (4) Controlled diabetes mellitus Status: Chronic Current Visit: No Code(s): E11.9 - Type 2 diabetes mellitus without complications (5) Edema, lower extremity Status: Chronic Current Visit: No Code(s): R60.0 - Localized edema Type of Wound Chief Complaint: Left anterior lower leg ulceration that will not heal. History of Wound: This 72 year old female has significant history of diabetes and multiple sclerosis, bilateral traumatic leg wounds, and other comorbidities. She presents to office today after being referred by Dr. Franco. Per his note, the patient had finished up a prescription for keflex and is on rocephin. Patient states that she recently got a new bed. She says since she is short she had to get a stool in order to get onto her bed. She fell on the stool and got an ulcer on the left anterior leg. She says this happed close to two weeks ago and has not seen much of an improvment since. She has been dressing the ulcer site with bacitracin. She denies any purulence, malodor, redness around the ulcer. She also denies any feelings of nausea, vomiting, fever, or chills currently. Progress of Wound: Patient presents for follow up today for dorsal right foot ulcer and left lateral lower leg. She continues to try to keep compression to her lower extremity as instructed, but has been having trouble with this. She also admits to not taking the recommended dose of Lasix, even after discussions at prior visits. She currently denies any feelings of nausea, vomiting, fever, or chills. - Physical Exam Vital Signs Temp Pulse Resp BP 98.2 F 69 18 188/76 H 01/24/18 10:49 01/24/18 10:49 01/24/18 10:49 01/24/18 10:49 General: Alert, Oriented x3, Cooperative, No apparent distress Extremities: Capillary Refill Less than 3 Seconds, No Calf Tenderness - Negative Sunita and Abraham sign, Diminished Peripheral Pulses - DP and PT pulses nonpalpable due to bilateral pitting edema of the lower extremity, Edema - Bilateral pitting lower extremity edema Skin: Ulcer/ Wound - Ulcer to right dorsal foot and left lateral lower leg with fat layer exposed. The bases are noted to be a mixture of adherent slough, fibrin, granular tissue, as well as some slight surrounding hyperkeratotic tissue. Improvement noted each site today. There continues to be no probing to bone, no tracking, no undermining, no purulence, no malodor, no extending or surrounding cellulitis, no increase in warmth. Wound Measurements and Assessment WC - Nurse 1 - General Ulcer Measurement Start: 01/10/18 11:05 Freq: Status: Active Protocol: Activity Type Activity Date Activity User E-Sign Co-Sign Detail Recorded Client Recorded Date Recorded By Document 01/24/18 10:49 [id number] 01/24/18 10:57 RB 01/24/18 10:49 Wound Center Nurse 1 [Ulcer Assessment] #7 RIGHT DORSAL FOOT -Combined with other wound No -Current Size (cm) - Length 0.5 -Current Size (cm) - Width 0.5 -Current Size (cm) - Depth 0.1 -Total Square Cm 0.25 -Photo Taken No -Tunneling No -Undermining/Tunneling No -Circular Undermining No -Exudate Amt Small (1-33%) -Exudate Type Serosanguineous -Wound Margin Distinct, Outline Attached -Granulation Amt Large (67-100%) -Granulation Quality [place] -Slough/Fibrin Yes -Necrosis Amt Small (1-33%) -Necrotic Tissue Type Adherent Slough -Structure Exposed N/A -Texture (Char-wound Skin Appearance) Assessed -Moisture (Char-wound Skin Appearance Dry/Scaly ) -Color (Char-wound Skin Appearance) Assessed -Temperature (Char-wound Skin No Abnormality Appearance) (Pt Warm) -Tenderness on Palpation (Char-wound No Skin Appearance) -Ulcer Cleansing Rinsed/ Irrigated with Saline -Foul Odor after Cleansing No -Anesthetic Used 5% Lidocaine Gel #9 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 INFERIOR -Combined with other wound No -Current Size (cm) - Length 1 -Current Size (cm) - Width 2.8 -Current Size (cm) - Depth 0.1 -Total Square Cm 2.8 -Photo Taken No -Tunneling No -Undermining/Tunneling No -Circular Undermining No -Exudate Amt Small (1-33%) -Exudate Type Serosanguineous -Wound Margin Distinct, Outline Attached -Granulation Amt Large (67-100%) -Granulation Quality [place] -Slough/Fibrin Yes -Necrosis Amt Small (1-33%) -Necrotic Tissue Type Adherent Slough -Structure Exposed N/A -Texture (Char-wound Skin Appearance) Assessed -Moisture (Char-wound Skin Appearance Assessed ) Dry/Scaly -Color (Char-wound Skin Appearance) Assessed -Temperature (Char-wound Skin No Abnormality Appearance) (Pt Warm) -Tenderness on Palpation (Char-wound No Skin Appearance) -Ulcer Cleansing Rinsed/ Irrigated with Saline -Foul Odor after Cleansing No -Anesthetic Used 5% Lidocaine Gel [Edema Assessment] -Lower Limb Edema Present Yes -Right Calf (cm) 44 -Right Ankle (cm) 29 -Left Calf (cm) 47.5 -Left Ankle (cm) 28 Musculoskeletal: Tenderness - With manipulation of ulcer sites Neurological: Sensory exam intact to light touch and pain Psych/Mental Status: Normal Affect, Appropriate Debridement Note Post-Debridement Measurements/Treatment WC - Nurse 2 - General Ulcer CM Notes Start: 01/10/18 11:05 Freq: Status: Active Protocol: Activity Type Activity Date Activity User E-Sign Co-Sign Detail Recorded Client Recorded Date Recorded By Document 01/10/18 11:50 DV [id number] 01/10/18 11:55 DV 01/10/18 11:50 Wound Center Nurse 2 #7 RIGHT DORSAL FOOT -Time 11:52 -Correct Patient Yes -Correct Side, Site, Position Yes -Correct Procedure Yes -Procedure Performed Yes -Type of Procedure Debridement -Clinical Debridement Subcutaneous -Post Debridement Size (cm) - Length 0.6 -Post Debridement Size (cm) - Width 0.6 -Post Debridement Size (cm) - Depth 0.1 -Total Square Cm 0.36 -Wound/Ulcer Outcome Not Healed -Ulcer Cleansing Rinsed/ Irrigated with Saline -Foul Odor after Cleansing No -Bioengineered Tissue No -Bleeding Controlled with Pressure -Offloading No -Treatment Response Procedure Tolerated Well #9 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 INFERIOR -Time 11:52 -Correct Patient Yes -Correct Side, Site, Position Yes -Correct Procedure Yes -Procedure Performed Yes -Type of Procedure Debridement -Clinical Debridement Subcutaneous -Post Debridement Size (cm) - Length 1.0 -Post Debridement Size (cm) - Width 4.5 -Post Debridement Size (cm) - Depth 0.2 -Total Square Cm 4.50 -Wound/Ulcer Outcome Not Healed -Ulcer Cleansing Rinsed/ Irrigated with Saline -Foul Odor after Cleansing No -Bioengineered Tissue No -Bleeding Controlled with Pressure -Offloading No -Treatment Response Procedure Tolerated Well Pain Scale: 0-10 Numeric Is Patient Pain Free? Yes Wound debrided: Right dorsal foot Laterality: Right Type of Debridement: Excisional debridement Anesthesia Used: 4% Lidocaine Solution Depth: in the subcutaneous layer Percentage of wound debrided: 100 Instrument Used: 7mm curette Tissue Removed: Adherent slough, fibrin, hyperkeratotic tissue Severity: Fat Layer Exposed Amount of bleeding with debridement: Mild Bleeding Controlled with: Pressure Patient tolerated procedure well - Additional Wound Wound debrided: Left lateral lower leg Laterality: Left Type of Debridement: Excisional debridement Anesthesia Used: 4% Lidocaine Solution Depth: in the subcutaneous layer Percentage of wound debrided: 100 Instrument Used: 7mm curette Tissue Removed: Adherent slough, fibrin, hyperkeratotic tissue Severity: Fat Layer Exposed Amount of bleeding with debridement: Mild Bleeding Controlled with: Pressure Patient tolerated procedure: Patient tolerated procedure well Assessment/Plan Assessment: Ulcer to left lower leg with fat layer exposed. DM II. Lower extremity edema Plan: Patient was again examined and evaluated today. The left lateral lower leg ulcer and right dorsal foot ulcer were debrided subcutaneously as noted in the clinical panel again today. Once the ulcers were debrided and carefully cleansed, the sites were then dressed with Aquacel Ag, followed by a dry sterile dressing along with tubigrips for compression. The dressing is to be changed in this manner daily. She will do this with the help of family friend, her son, and home health. It was again discussed the importance of keeping the compression from the toes all the way up to the knee. She has not been fully compliant with this in the past and she admits to still not taking her Lasix as prescribed by her primary care doctor. She was instrcuted on the importance of keeping pressure off of all of the ulcer sites at all times while seated. She is to keep her legs raised while seated or lying down. She says she keeps her legs elevated with her new lift chair. I again stressed the importance of compression with the patient's healing. She was instructed to wear the tubigrip and to keep her lower extremities elevated while seated. LEAS and venous doppler studies were reviewed at prior visit and patient will be referred to Dr. Adames with vascular. I recommended a high-protein diet for this patient to supplement ulcer healing. Patient was educated on all signs and symptoms of local and systemic infection, and was instructed to go to the ER immediately should she notice any. All other questions were answered to the patient's satisfaction. The patient will follow-up in clinic in 1 week to check on progress, or sooner if needed.
== END 2018-02-04 23:59 ==
LOC: WC 10:00
PROVIDERS: Family Provider Family Medicine Geriatric Medicine; PCP Family Medicine Geriatric Medicine; Referring Provider Podiatrist; Visit Provider Podiatrist
DX: E11.622 Type 2 diabetes mellitus with other skin ulcer (principal); L97.822 Non-pressure chronic ulcer of other part of left lower leg with fat layer exposed; E11.621 Type 2 diabetes mellitus with foot ulcer; R60.0 Localized edema; E11.51 Type 2 diabetes mellitus with diabetic peripheral angiopathy without gangrene; G35 Multiple sclerosis; L97.512 Non-pressure chronic ulcer of other part of right foot with fat layer exposed
CPT/HCPCS: 11042

== ENCOUNTER 2018-02-16 21:11 | Inpatient (IN) | payer MEDICARE, SELFPAY ==
[2018-02-14 10:39] VITALS: BMI 44.3
[2018-02-16 21:17] VITALS: BP 125/60; PULSE 97; RESP 27; TEMP 38; O2SAT 96; BMI 43.5
--- NOTE | 2018-02-16 21:22 | EKG12_ITS ---
Test Reason : CONFUSION Blood Pressure : / mmHG Vent. Rate : 094 BPM Atrial Rate : 094 BPM P-R Int : 216 ms QRS Dur : 078 ms QT Int : 338 ms P-R-T Axes : 019 011 129 degrees QTc Int : 422 ms Sinus rhythm with 1st degree A-V block Marked ST abnormality, possible lateral subendocardial injury Abnormal ECG Confirmed by BLACK HATCH, PARDEEP ([id number]), story editor SHAHNAZ MARINA ([id number]) on 02/19/2018 4:44:16 PM Referred By: MIEK Confirmed By:PARDEEP CLEANING MD
--- NOTE | 2018-02-16 21:25 | ED.VISSUMM ---
- ER Visit Summary Date of Service: 02/16/18 Chief Complaint: Confusion, left leg redness History of Present Illness: The patient is a 73 F who presents with the above symptoms. She states she is felt confused for the past couple of days. Her left leg is red. She does see wound care for lower extremities. Per medical record she had a debridement on the left lower leg on . She denies having a fever. No abdominal pain, nausea or vomiting. No cough. She states that she has had some dysuria as well. No hematuria. No abdominal pain Physical Examination: Vital signs reviewed. Temperature is 100.4?F. HEENT exam unremarkable. Heart is regular rate and rhythm without murmurs. Lungs are clear bilaterally. Abdomen is soft and nontender. Extremities reveal 1+ symmetric pitting edema. She does have significant erythema of the left leg from the proximal tibia down to the foot. The right leg has no erythema or redness or warmth. The left leg is warmer than the right. Her neurologic exam is intact. She is alert and oriented x3. Test Results: EKG is sinus rhythm with a rate of 94. She has nonspecific ST and T wave changes. White blood cell count 19.6. Hemoglobin 9.4. Creatinine 1.83. Lactate 3.6. Urinalysis does reveal 2+ leukocytes and positive nitrites. Chest x-ray reveals no acute process Emergency Department Course and Treatment: Patient was given IV fluids. She does have multiple sources of infection including the erythema and cellulitis of her left lower extremity as well as a UTI. She was started on IV Kefzol. She meets severe sepsis criteria. Her blood pressure has been normal. Patient will be admitted to the hospital Treatment Plan: [] Disposition: Admit Impression: Severe sepsis, left lower extremity cellulitis, UTI This note was generated with [employer] dictation software. It may contain incorrect words, spelling, and punctuation that were not noted in review of the chart prior to signing ED Disposition - Plan for ED Patient: Chief Complaint: Confusion Referrals: Octaviano Franco Chi, MD [Primary Care Provider] -
[2018-02-16 21:28] VITALS: BP 125/60; PULSE 96; RESP 25; TEMP 38; O2SAT 99
--- NOTE | 2018-02-16 21:47 | RAD_ITS ---
STUDY: X-RAY CHEST REASON FOR EXAM: Female, 73 years old. Weakness confusion. TECHNIQUE: Portable chest. COMPARISON: 12/16/2017. FINDINGS: The lungs are clear and expanded. There is no demonstrated pleural abnormality. There is mild cardiac enlargement. Normal mediastinum and alee. Normal visualized pulmonary arteries. Normal visualized aortic arch and descending thoracic aorta. Normal visualized thoracic spine. Normal visualized ribs, clavicles, and shoulders. There is no demonstrated abnormality of the visualized soft tissue structures of the upper abdomen. RAD/Chest 1 View (Portable) IMPRESSION: No acute process. Electronically Signed: Peggy Sheth MD at 22:37 EST Tel , Service support ,
[2018-02-16 22:02] VITALS: O2SAT 96
[2018-02-16 22:04] LABS: Absolute Lymphocyte Count 0.99 X10^3/ul (0.83-4.51); Absolute Neutrophil Count 18.2 X10^3/uL (2.0-7.7); Basophil# 0.02 X10^3/uL; Basophil% 0.1 % (0-1); Eosinophil# 0.02 X10^3/uL; Eosinophils% 0.1 % (0-5); Hematocrit 33.1 % (37-47); Hemoglobin 9.4 g/dl (12.0-15.0); Lymphocyte # 0.99 X10^3/ul (4.0); Lymphocyte % 5.1 % (19-41); Mean Corp Hgb Conc 28.4 g/gl (32-36); Mean Corpuscular Hgb 22.4 pg (27.0-32.0); Mean Platelet Vol. 9.1 fl (6.2-12.0); Monocyte# 0.34 X10^3/uL; Monocyte% 1.7 % (0-10); Neutrophil # 18.17 X10^3/uL (2.7-7.7); Neutrophil % 92.7 % (47-70); Platelet Count 278 K/mm3 (150-450); RBC Distribution Width CV 17.5 % (11.6-14.6); RBC Distribution Width SD 49.5 fl (35.1-43.9); Red Blood Count 4.19 M/mm3 (4.2-5.4); White Blood Count 19.6 K/mm3 (4.4-11.0)
[2018-02-16 22:06] LABS: POSITIVE COUNT NO; POSITIVE DIFFERENTIAL NO; POSITIVE MORPHOLOGY NO
[2018-02-16 22:12] LABS: International Normalized Ratio 1.3; Prothrombin Time (Protime)PT. 15.7 SECONDS (11.7-14.9)
[2018-02-16 22:13] LABS: Partial Thromboplast Time 30.1 Seconds (24.1-36.2)
[2018-02-16 22:21] LABS: ALB/GLOB Ratio 0.9 RATIO (0.9-2.4); AST(SGOT) 25 U/L (15-37); Alanine Aminotransfer ALT/SGPT 42 U/L (13-56); Alkaline Phosphatase 84 U/L (45-117); Anion Gap 10 (5-15); BUN 30 mg/dL (7-18); BUN/Creat Ratio 16.4 RATIO (10-20); Calcium,Total 8.8 mg/dL (8.5-10.1); Chloride 103 mmol/L (98-107); Creatinine, Serum 1.83 mg/dL (0.55-1.02); EST Glomerular Filtration Rate 29 mL/min (>60); Est Glom Filt Rate - Afr Amer 35 mL/min (>60); Estimated Creatinine Clearance 19.37 ml/min; Globulin 3.3 g/dL (2.2-4.2); Glucose 189 mg/dL (74-106); Potassium 3.7 mmol/L (3.5-5.1); Protein, Total 6.3 g/dL (6.4-8.2); Sodium Level 141 mmol/L (136-145)
[2018-02-16 22:29] LABS: Lactic Acid 3.6 mmol/L (0.4-2.0)
[2018-02-16 22:33] LABS: Mucous, Urine 0 SEEN /hpf (<or=2+); Red Blood Cells-Urine 0 SEEN /hpf (0-5); Squamous Epithelial Cells - UA 0 SEEN /hpf (5-10)
[2018-02-16 22:38] LABS: Glucose, Dipstick Normal (Normal); Ketone-Dipstick Negative (Negative); Leukocyte Esterase-Dipstick 500 /ul (Negative); Nitrite-Dipstick Positive (Negative); Occult Blood-Urine 25 /ul (Negative); Protein-Dipstick Negative (Negative); Urine Bilirubin Dipstick Negative (Negative); Urine Clarity Clear (Clear); Urine Urobilinogen Normal (Normal)
[2018-02-16 22:40] LABS: Color, Urine SEE COMMENT BELOW (Yellow)
[2018-02-16 22:49] LABS: Bacteria 1+ /hpf (None Seen); White Blood Cells 25-50 SEEN /hpf (0-5)
[2018-02-16 22:54] VITALS: BP 181/65; PULSE 88; RESP 20; O2SAT 95
[2018-02-16] MEDS: 0.9% Normal Saline 1,000 ML 999 ML IV (22:55)
[2018-02-16] MEDS: Cefazolin 1 GM/50 ML BAG IV (22:55)
--- NOTE | 2018-02-16 22:58 | HP.PCM_ITS ---
Problem List (1) Severe sepsis Status: Acute (2) Acute cystitis Status: Acute (3) Acute encephalopathy Status: Acute (4) Cellulitis Status: Acute (5) NAYA (acute kidney injury) Status: Acute History of Present Illness Date of Admission: 02/16/18 Chief Complaint: confusion The patient is a 73 year old F with a significant history of type 2 diabetes; hypertension; CAD status post CABG and stent A. radha who was found on the floor on the day of presentation. Per patient's son she saw patient on the floor in the house. Reportedly patient is has had multiple falls in the past. Her son noticed that patient was confused. Patient has bilateral wounds and she follows up with our wound center. She goes to the wound center for dressing changes every week. Her son noticed that patient has redness and tenderness on her left leg. Patient has multiple histories of cellulitis of her leg. Patient reported subjective fever and chills. She denies any nausea or vomiting. She reports that in the last 2 weeks she has been having some burning with urination. Patient's son reported that patient was prescribed some kind of medication for UTI. It appears that this medication was not antibiotics. At emergency department patient was found to have a temperature of 100.4. She had tachypnea with respiratory rate between 20-27. She had a white count of 19.6 K. Creatinine was elevated at 1.83. Her urinalysis was abnormal. Patient was diagnosed with severe sepsis from cystitis and from cellulitis of her left leg. She received IV fluid bolus and cefazolin. Past Medical History Past Medical History (Chronic Problems): Chronic Problems (Last Reviewed 02/17/18 @ 00:56 by Oziel Angel MD) PVD (peripheral vascular disease) (Chronic) Controlled diabetes mellitus (Chronic) Edema, lower extremity (Chronic) Presence of stent in coronary artery (Chronic) PTCA/stent to CX; PTCA/Stent PTCA/stent to prox RCA 05/06; PTCA/LILY in mid to distal RCA 08/29/12 Atherosclerotic heart disease of [place] coronary artery without angina pectoris (Chronic) PTCA/stent to CX; PTCA/Stent PTCA/stent to prox RCA 05/06; PTCA/LILY in mid to distal RCA 08/29/12; CABG x2 ARREGUIN tp LAD and SVG to OM2 11/28/11 S/P CABG (coronary artery bypass graft) (Chronic ~01/02/11) CABG x2 ARREGUIN tp LAD and SVG to OM2 01/02/11 Paroxysmal atrial fibrillation (Chronic) Hyperlipidemia (Chronic) Hypertension (Chronic) Medical History: Medical History (Last Reviewed 02/17/18 @ 00:56 by Oziel Angel MD) PVD (peripheral vascular disease) (Chronic) I73.9 Ulcer of left lower extremity with fat layer exposed (Inactive) L97.922 Controlled diabetes mellitus (Chronic) E11.9 Edema, lower extremity (Chronic) R60.0 Atherosclerotic heart disease of [place] coronary artery without angina pectoris (Chronic) I25.10 PTCA/stent to CX; PTCA/Stent PTCA/stent to prox RCA 05/06; PTCA/LILY in mid to distal RCA 08/29/12; CABG x2 ARREGUIN tp LAD and SVG to OM2 01/02/11 Paroxysmal atrial fibrillation (Chronic) I48.0 Hyperlipidemia (Chronic) E78.5 Hypertension (Chronic) 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 Diabetic ulcer of both lower extremities E11.622, L97.919, L97.929 History of DVT (deep vein thrombosis) Z86.718 Multiple sclerosis G35 Trigeminal neuralgia G50.0 Type 2 diabetes mellitus E11.9 LAURITA (obstructive sleep apnea) G47.33 Peripheral vascular disease I73.9 Venous insufficiency of both lower extremities I87.2 Allergies ciprofloxacin [From Cipro] Allergy (Verified 02/16/18 21:16) Hives ciprofloxacin HCl [From Cipro] Allergy (Verified 02/16/18 21:16) Hives Latex, Natural Rubber Allergy (Verified 02/16/18 21:16) Rash Penicillins [PCN] Allergy (Verified 02/16/18 21:16) Hives codeine Adverse Reaction (Unknown, Verified 02/16/18 21:16) Unknown adhesive tape Adverse Reaction (Verified 02/16/18 21:16) Rash Home Medications: Ambulatory Orders Medication Instructions Recorded Docusate Sodium [Colace] 100 mg PO DAILY PRN 05/10/17 Pantoprazole Sodium [Protonix] 40 mg PO DAILY 05/10/17 Rivaroxaban [Xarelto] 15 mg PO DAILY 05/10/17 metoprolol tartrate 50 mg tablet 50 mg PO BID #180 tab 09/18/17 amiodarone 200 mg tablet 200 mg PO DAILY #90 tab 10/10/17 Duloxetine HCl 60 mg PO DAILY 10/24/17 Glucerna Shake 120 ml PO 4X/DAY liquid 10/27/17 Ferrous Sulfate 325 mg PO DAILY@0800 11/22/17 Furosemide 40 mg PO DAILY #1 tab 12/21/17 Gabapentin [Neurontin] 600 mg PO BIDCM #60 tablet 12/21/17 Potassium Chloride [Klor-Con] 20 meq PO DAILY #1 packet 12/21/17 Acetaminophen [Tylenol Extra 1,000 mg PO PRN PRN 01/03/18 Strength] magnesium 400 mg (as magnesium 400 mg PO BID #180 tab 01/22/18 oxide) tablet spironolactone 25 mg tablet 25 mg PO DAILY PRN #90 tab 01/25/18 Surgical History: Surgical History (Last Reviewed 02/17/18 @ 00:56 by Oziel Angel MD) Presence of stent in coronary artery (Chronic) Z95.5 PTCA/stent to CX; PTCA/Stent PTCA/stent to prox RCA 05/06; PTCA/LILY in mid to distal RCA 08/29/12 S/P CABG (coronary artery bypass graft) (Chronic) Onset Date: ~01/02/11 Z95.1 CABG x2 ARREGUIN tp LAD and SVG to OM2 01/02/11 History of cataract surgery Z98.49 History of cholecystectomy Z98.890, Z90.49 History of hernia repair Z98.890, Z87.19 History of tonsillectomy and adenoidectomy Z98.890 History of total hysterectomy Z98.890, Z90.710 Postsurgical percutaneous transluminal coronary angioplasty (PTCA) status Z98.61 PTCA/stent to CX; PTCA/Stent PTCA/stent to prox RCA 05/06; PTCA/LLIY in mid to distal RCA 08/29/12 Surgical History: angioplasty, appendectomy, cholecystectomy, coronary bypass surgery, hysterectomy, tonsillectomy, - - R ankle surgery with hardware. placement of stents (cardiac or lower extremity. patient is unsure). excision upper lip carcinoma. Incision and drainage and excisional debridement infected traumatic open hematoma wound right anterior leg (90 cm2) and incision and drainage and excisional debridement infected traumatic open hematoma wound left anterior leg (72 cm2) - 12/29/14. Psychiatric History: No 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 hx [employer] History: No pertinent [employer] history Smoking Status: Former smoker - *Family History Maternal Family History: Family History (Last Reviewed 02/17/18 @ 00:56 by Oziel Angel MD) Father Heart disease Mother Hypertension Cancer Brother Diabetes Hypertension History Items: Heart Disease, Hypertension Paternal Family History: Family History (Last Reviewed 02/17/18 @ 00:56 by Oziel Angel MD) Father Heart disease Mother Hypertension Cancer Brother Diabetes Hypertension History Items: Heart Disease, Hypertension, - - skin cancer. Sibling Family History: Family History (Last Reviewed 02/17/18 @ 00:56 by Oziel Angel MD) Father Heart disease Mother Hypertension Cancer Brother Diabetes Hypertension History Items: Diabetes Review of Systems Constitutional: Reports: Chills, Fever - subjective HEENT: Denies: Head Aches, Sinus Congestion, Sinus Drainage Cardiovascular: Denies: Chest Pain, Palpitations Respiratory: Denies: Cough, Shortness of breath at rest, Sputum production Gastrointestinal: Denies: Abdominal Pain, Nausea, Vomiting Genitourinary: Reports: Dysuria, Frequency Musculoskeletal: Reports: Leg Pain - Bilateral leg pain; chronic. Denies: Joint Pain, Joint Tenderness Skin: Reports: - - Erythema of left leg; wound on left leg; wound on left foot.. Denies: Wounds Neurological: Reports: Confusion Psychiatric: Denies: Anxiety, Depression, Homicidal Ideations, Suicidal Ideations Hematologic/ Lymphatic: Denies: Easy Bruising, Easy Bleeding VTE Information - Inpt Only VTE Present on Admission: No VTE Mechan Device Prophylaxis: None VTE Pharm Prophylaxis ordered?: No Reason prophylaxis not ordered:: Treatment Not Indicated - Patient on Xarelto for A. fib; continued Patient Problems: Active and Suspected Problems (Last Reviewed 02/17/18 @ 00:56 by Oziel Angel MD) Severe sepsis (Acute) Acute cystitis (Acute) Acute encephalopathy (Acute) Cellulitis (Acute) NAYA (acute kidney injury) (Acute) - Physical Exam General: Alert, - - Initially patient could not identify her son. She thought her son was a . HEENT: Atraumatic, PERRLA, EOMI, Normocephalic Neck: Supple, No JVD, Negative Carotid Bruits Lungs: Clear to auscultation, Normal air movement, Tachypneic Cardiovascular: Regular rate, No murmurs Abdomen: Bowel Sounds Present - Hyperactive, Soft, Non Tender Extremities: Edema - Bilateral legs, chronic Skin: - - Redness and increased warmth on left leg. Ulcer on right dorsal foot; also on lateral side of left leg Musculoskeletal: Tenderness - Bilateral legs Neurological: Neuro grossly intact - Initially she was confused and she did not know who her son was. Later on her son told her who she was and patient remembered throughout the conversation Psych/Mental Status: Normal Affect Vital Signs Temp Pulse Resp BP Pulse Ox 100.4 F H 88 20 H 181/65 H 95 02/16/18 21:28 02/16/18 22:54 02/16/18 22:54 02/16/18 22:54 02/16/18 22:54 Oxygen Delivery Method Room Air Weight: 101.1 kg Body Mass Index (BMI) 43.5 Finger Stick Blood Glucose 187 Laboratory Tests Past 24 Hrs 02/16/18 02/16/18 02/16/18 21:50 21:50 21:50 WBC 19.6 H RBC 4.19 L Hgb 9.4 L Hct 33.1 L MCV 79.0 L MCH 22.4 L MCHC 28.4 L RDW 17.5 H RDW Differential 49.5 H Plt Count 278 MPV 9.1 Immature Gran % (Auto) 0.300 Neut % (Auto) 92.7 H Lymph % (Auto) 5.1 L [place] % (Auto) 1.7 Eos % (Auto) 0.1 Baso % (Auto) 0.1 Absolute Neuts (auto) 18.2 H Absolute Lymphs (auto) 0.99 Total Counted Not Reportable PT 15.7 H INR 1.3 APTT 30.1 Sodium 141 Potassium 3.7 Chloride 103 Carbon Dioxide 28.0 Anion Gap 10 BUN 30 H Creatinine 1.83 H Estim Creat Clear Calc 19.37 Est GFR (MDRD) Af Amer 35 L Est GFR (MDRD) Non-Af 29 L BUN/Creatinine Ratio 16.4 Glucose 189 H Lactic Acid Calcium 8.8 Total Bilirubin 0.60 AST 25 ALT 42 Alkaline Phosphatase 84 Total Protein 6.3 L Albumin 3.0 L Globulin 3.3 Albumin/Globulin Ratio 0.9 Urine Color Urine Clarity Urine pH Ur Specific [place] Urine Protein Urine Glucose (UA) Urine Ketones Urine Occult Blood Urine Nitrite Urine Bilirubin Urine Urobilinogen Ur Leukocyte Esterase Urine RBC Urine WBC Ur Squamous Epith Cells Urine Bacteria Urine Mucus 02/16/18 02/16/18 21:50 22:30 WBC RBC Hgb Hct MCV MCH MCHC RDW RDW Differential Plt Count MPV Immature Gran % (Auto) Neut % (Auto) Lymph % (Auto) [place] % (Auto) Eos % (Auto) Baso % (Auto) Absolute Neuts (auto) Absolute Lymphs (auto) Total Counted PT INR APTT Sodium Potassium Chloride Carbon Dioxide Anion Gap BUN Creatinine Estim Creat Clear Calc Est GFR (MDRD) Af Amer Est GFR (MDRD) Non-Af BUN/Creatinine Ratio Glucose Lactic Acid 3.6 H Calcium Total Bilirubin AST ALT Alkaline Phosphatase Total Protein Albumin Globulin Albumin/Globulin Ratio Urine Color SEE COMMENT BELOW Urine Clarity Clear Urine pH 6.0 Ur Specific [place] 1.010 Urine Protein Negative Urine Glucose (UA) Normal Urine Ketones Negative Urine Occult Blood 25 H Urine Nitrite Positive H Urine Bilirubin Negative Urine Urobilinogen Normal Ur Leukocyte Esterase 500 H Urine RBC 0 SEEN Urine WBC 25-50 SEEN Ur Squamous Epith Cells 0 SEEN Urine Bacteria 1+ Urine Mucus 0 SEEN Assessment/Plan All Active Problems (Last Reviewed 02/17/18 @ 00:56 by Oziel Angel MD) Severe sepsis (Acute) Acute cystitis (Acute) Acute encephalopathy (Acute) Cellulitis (Acute) NAYA (acute kidney injury) (Acute) Encephalopathy (Resolved) Left leg cellulitis (Acute) The patient is a 73 year old F with a significant history of type 2 diabetes; hypertension; CAD status post CABG and stent A. fib who was found on the floor; with confusion; dysuria; and erythema with increased warmth on left leg; and found to have a fever, tachypnea, leukocytosis, elevated creatinine at emergency department consistent with severe sepsis from acute cystitis and cellulitis. Severe sepsis with acute cystitis and cellulitis Met Sirs criteria with fever of 100.4 that trended up; tachypnea; leukocytosis. Source of infection: Cellulitis of left leg: Abnormal urinalysis. Severe sepsis criteria: Elevated creatinine; lactic acidosis Urine culture and blood culture are pending Antibiotic was started from the emergency department. Trend lactic acid Broad-spectrum antibiotics ordered Tylenol for fever. Patient was not hypotensive Acute cystitis Patient received cefazolin at emergency department. We will give her 1 g of ceftriaxone now; and schedule ceftriaxone daily. Trend CBC and BMP Urine cultures and blood cultures are pending Cellulitis of the left leg Ceftriaxone and clindamycin ordered. Management as an severe sepsis NAYA On admission her creatinine was 1.83. Her BUN was 30 Her baseline creatinine is about 1.4. Likely intrinsic renal from sepsis. Cannot rule out a component of prerenal Gentle IV hydration Avoid nephrotoxins. Lasix and Aldactone held. Her potassium has been held to. Trend BMP. Type 2 diabetes On admission blood glucose was slightly outside goal. With metformin held secondary to lactic acidosis; Accu-Chek q. before meals at bedtime with correction scale ordered. Hypertension On admission her blood pressure was not within goal. Spironolactone and Lasix held because of [place] I Metoprolol continued As needed labetalol ordered History of A. fib Stable Metoprolol and Xarelto continued Amiodarone continued DVT prophylaxis Not indicated patient on Xarelto for A. fib. Code Visit Inpatient E&M: 25993 Init Hosp L3
[2018-02-16 23:00] VITALS: BP 135/98; PULSE 86; RESP 20; O2SAT 94
--- NOTE | 2018-02-16 23:01 | ED.RN ---
THIS RN CALLED [facility]: ADULT PROTECTIVE SERVICES TO REPORT PATIENT NEGLECT FROM FAMILY. THIS RN LEFT A MESSAGE ON ANSWERING MACHINE. SOCIAL WORK CONSULT MADE ALSO PER PT TO BE ADMITTED FOR FURTHER CARE.
[2018-02-16 23:02] VITALS: TEMP 38.2
--- NOTE | 2018-02-16 23:04 | ED.RN ---
PT'S SON REPORTED THAT HE AND HIS WORK CLOTHES WRINGER AND THE PT AND HER SISTER STAY HOME ALONE. PT HAS FALLEN SEVERAL TIMES PER SON AND PT DOES HAVE MULTIPLE HEALING AREAS FROM FALLS. PT HAS EXTREME EDEMA TO LLE WITH REDNESS. 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
[2018-02-16] MEDS: Acetaminophen 325 MG Tablet 650 MG PO (23:20)
[2018-02-17] VITALS (14 sets, daily range): BP systolic 108–141; BP diastolic 41–97; PULSE 69–90; RESP 18–24; TEMP 36.9–37.6; O2SAT 93–97; BMI 41.8; BMI 41.9
--- NOTE | 2018-02-17 01:08 | ED.RN ---
IV MEDICATION MOVED TO NEW IV. PT KEEPS BENDING ARM. NEW IV INITIATED TO LET IV RUN EVEN IF PT HAD ARM BENT.
[2018-02-17 01:58] LABS: Reflex Lactate? Y
[2018-02-17 03:08] LABS: Lactic Acid 1.1 mmol/L (0.4-2.0)
[2018-02-17] MEDS: Ceftriaxone 1 GM/50 ML BAG IV ×2 (03:27→22:50)
[2018-02-17 06:56] LABS: Absolute Lymphocyte Count 1.57 X10^3/ul (0.83-4.51); Absolute Neutrophil Count 12.7 X10^3/uL (2.0-7.7); Basophil# 0.02 X10^3/uL; Basophil% 0.1 % (0-1); Eosinophil# 0.05 X10^3/uL; Eosinophils% 0.3 % (0-5); Hematocrit 31.1 % (37-47); Hemoglobin 8.8 g/dl (12.0-15.0); Lymphocyte # 1.57 X10^3/ul (4.0); Lymphocyte % 10.4 % (19-41); Mean Corp Hgb Conc 28.3 g/gl (32-36); Mean Corpuscular Hgb 22.3 pg (27.0-32.0); Mean Corpuscular Volume 78.7 fL (81-99); Mean Platelet Vol. 9.3 fl (6.2-12.0); Monocyte# 0.75 X10^3/uL; Neutrophil # 12.69 X10^3/uL (2.7-7.7); Platelet Count 252 K/mm3 (150-450); RBC Distribution Width CV 17.7 % (11.6-14.6); RBC Distribution Width SD 50.8 fl (35.1-43.9); Red Blood Count 3.95 M/mm3 (4.2-5.4); White Blood Count 15.1 K/mm3 (4.4-11.0)
[2018-02-17 06:56] LABS: Bedside Glucose 90 mg/dL (70-110)
[2018-02-17 07:03] LABS: POSITIVE COUNT NO; POSITIVE DIFFERENTIAL NO; POSITIVE MORPHOLOGY NO
[2018-02-17 07:24] LABS: Anion Gap 8 (5-15); BUN 27 mg/dL (7-18); Calcium,Total 8.6 mg/dL (8.5-10.1); Chloride 105 mmol/L (98-107); Creatinine, Serum 1.59 mg/dL (0.55-1.02); EST Glomerular Filtration Rate 34 mL/min (>60); Est Glom Filt Rate - Afr Amer 41 mL/min (>60); Glucose 124 mg/dL (74-106); Potassium 3.4 mmol/L (3.5-5.1); Sodium Level 143 mmol/L (136-145)
[2018-02-17] MEDS: Ferrous Sulfate 325 MG Tablet PO (09:34)
[2018-02-17] MEDS: Amiodarone 200 MG Tablet PO (09:35)
[2018-02-17] MEDS: Metoprolol Tartrate 50 MG Tablet PO ×2 (09:35→22:30)
[2018-02-17] MEDS: Magnesium Oxide 400 MG Tablet PO ×2 (09:35→22:31)
[2018-02-17] MEDS: DULoxetine Hcl 60 MG Capsule PO (09:35)
[2018-02-17] MEDS: Rivaroxaban 15 MG Tablet PO (09:35)
[2018-02-17] MEDS: Pantoprazole Sodium 40 MG Tablet PO (09:36)
[2018-02-17 11:01] LABS: Bedside Glucose 156 mg/dL (70-110)
--- NOTE | 2018-02-17 11:01 | PN_ITS ---
Patient Problems: Active and Suspected Problems (Last Reviewed 02/17/18 @ 00:56 by Oziel Angel MD) Severe sepsis (Acute) Acute cystitis (Acute) Cellulitis (Acute) Subjective: Chief complaint: Follow-up after admission for severe sepsis secondary to acute cystitis and acute cellulitis of the left lower extremity. Patient seen and examined. No acute events overnight. This morning, she is alert and oriented x3. She complains of pain and discomfort on the left leg. Denies fever chills. Denies chest pain or shortness of breath. No cough or sputum production. Denied abdominal pain, nausea or vomiting. Denies constipation or diarrhea. Denied urinary symptoms. She is afebrile, blood pressure and heart rate are stable, pulse ox is 97% on 2 L. - Physical Exam General: Alert, Oriented x3, Cooperative, No apparent distress HEENT: Atraumatic, PERRLA, EOMI, Normocephalic Oral: Moist Mucosa, No Gingival or Mucosal Lesions/ Ulcerations Neck: Supple, No JVD, Negative Carotid Bruits, Trachea Midline, Thyroid Normal Size and Texture Lungs: Clear to auscultation, No rhonchi, No wheeze, No rales, Diminished Cardiovascular: Normal S1, Normal S2, No murmurs, PMI Normal, Irregular Rate Abdomen: Bowel Sounds Present, Soft, Non Tender, Non-Distended, No Hepato- splenomegaly Extremities: No clubbing, No cyanosis, Edema, - - Left leg: Erythema and swelling extending from just below left knee down to the left ankle, no open wounds or drainage. Lymphatic: No Cervical, Supraclavicular, or Inguinal Adenopathy Neurological: Cranial nerves II-XII grossly intact, Motor Exam 5/5 strength throughout Psych/Mental Status: Normal Affect, Appropriate, Alert and oriented to time, place, person, mood and affect Vital Signs Temp Pulse Resp BP Pulse Ox 98.5 F 71 18 110/75 97 02/17/18 09:30 02/17/18 10:00 02/17/18 10:00 02/17/18 09:30 02/17/18 09:30 Oxygen Flow Rate (L/min) 2 Oxygen Delivery Method Nasal Cannula Weight: 214 lb 4.629 oz Body Mass Index (BMI) 41.8 Finger Stick Blood Glucose 187 Intake and Output for Last 24 Hours 02/15/18 02/16/18 02/17/18 23:59 23:59 23:59 Intake Total 385 / 385 Balance 385 / 385 Laboratory Tests Past 24 Hrs 02/16/18 02/16/18 02/16/18 21:50 21:50 21:50 WBC 19.6 H RBC 4.19 L Hgb 9.4 L Hct 33.1 L MCV 79.0 L MCH 22.4 L MCHC 28.4 L RDW 17.5 H RDW Differential 49.5 H Plt Count 278 MPV 9.1 Immature Gran % (Auto) 0.300 Neut % (Auto) 92.7 H Lymph % (Auto) 5.[address] [place] % (Auto) 1.7 Eos % (Auto) 0.1 Baso % (Auto) 0.1 Absolute Neuts (auto) 18.2 H Absolute Lymphs (auto) 0.99 Total Counted Not Reportable PT 15.7 H INR 1.3 APTT 30.1 Sodium 141 Potassium 3.7 Chloride 103 Carbon Dioxide 28.0 Anion Gap 10 BUN 30 H Creatinine 1.83 H Estim Creat Clear Calc 19.37 Est GFR (MDRD) Af Amer 35 L Est GFR (MDRD) Non-Af 29 L BUN/Creatinine Ratio 16.4 Glucose 189 H Lactic Acid Calcium 8.8 Total Bilirubin 0.60 AST 25 ALT 42 Alkaline Phosphatase 84 Total Protein 6.3 L Albumin 3.0 L Globulin 3.3 Albumin/Globulin Ratio 0.9 Urine Color Urine Clarity Urine pH Ur Specific [place] Urine Protein Urine Glucose (UA) Urine Ketones Urine Occult Blood Urine Nitrite Urine Bilirubin Urine Urobilinogen Ur Leukocyte Esterase Urine RBC Urine WBC Ur Squamous Epith Cells Urine Bacteria Urine Mucus 02/16/18 02/16/18 02/17/18 21:50 22:30 02:15 WBC RBC Hgb Hct MCV MCH MCHC RDW RDW Differential Plt Count MPV Immature Gran % (Auto) Neut % (Auto) Lymph % (Auto) [place] % (Auto) Eos % (Auto) Baso % (Auto) Absolute Neuts (auto) Absolute Lymphs (auto) Total Counted PT INR APTT Sodium Potassium Chloride Carbon Dioxide Anion Gap BUN Creatinine Estim Creat Clear Calc Est GFR (MDRD) Af Amer Est GFR (MDRD) Non-Af BUN/Creatinine Ratio Glucose Lactic Acid 3.6 H 1.1 Calcium Total Bilirubin AST ALT Alkaline Phosphatase Total Protein Albumin Globulin Albumin/Globulin Ratio Urine Color SEE COMMENT BELOW Urine Clarity Clear Urine pH 6.0 Ur Specific [place] 1.010 Urine Protein Negative Urine Glucose (UA) Normal Urine Ketones Negative Urine Occult Blood 25 H Urine Nitrite Positive H Urine Bilirubin Negative Urine Urobilinogen Normal Ur Leukocyte Esterase 500 H Urine RBC 0 SEEN Urine WBC 25-50 SEEN Ur Squamous Epith Cells 0 SEEN Urine Bacteria 1+ Urine Mucus 0 SEEN 02/17/18 02/17/18 05:41 05:41 WBC 15.1 H RBC 3.95 L Hgb 8.8 L Hct 31.1 L MCV 78.7 L MCH 22.3 L MCHC 28.3 L RDW 17.7 H RDW Differential 50.8 H Plt Count 252 MPV 9.3 Immature Gran % (Auto) 0.200 Neut % (Auto) 84.0 H Lymph % (Auto) 10.[address] [place] % (Auto) 5.0 Eos % (Auto) 0.3 Baso % (Auto) 0.1 Absolute Neuts (auto) 12.7 H Absolute Lymphs (auto) 1.57 Total Counted Not Reportable PT INR APTT Sodium 143 Potassium 3.4 L Chloride 105 Carbon Dioxide 30.0 Anion Gap 8 BUN 27 H Creatinine 1.59 H Estim Creat Clear Calc 22.30 Est GFR (MDRD) Af Amer 41 L Est GFR (MDRD) Non-Af 34 L BUN/Creatinine Ratio 17.0 Glucose 124 H Lactic Acid Calcium 8.6 Total Bilirubin AST ALT Alkaline Phosphatase Total Protein Albumin Globulin Albumin/Globulin Ratio Urine Color Urine Clarity Urine pH Ur Specific [place] Urine Protein Urine Glucose (UA) Urine Ketones Urine Occult Blood Urine Nitrite Urine Bilirubin Urine Urobilinogen Ur Leukocyte Esterase Urine RBC Urine WBC Ur Squamous Epith Cells Urine Bacteria Urine Mucus POC Glucose 02/17/18 06:35 POC Glucose 90 Clinical Impression(s) from Imaging Studies Chest X-Ray 02/16/18 21:47 IMPRESSION: No acute process. Electronically Signed: Peggy Sheth MD at 22:37 EST Tel , Service support , Medical Necessity - Tobacco Use Smoking Status: Former smoker Assessment/Plan All Active Problems (Last Reviewed 02/17/18 @ 00:56 by Oziel Angel MD) Severe sepsis (Acute) Acute cystitis (Acute) Cellulitis (Acute) This is a 73 years old female patient presented to the emergency room because of confusion and left leg redness and erythema and she was found to have severe sepsis secondary to acute cystitis and acute left lower extremity cellulitis. #1 severe sepsis: Secondary to UTI and cellulitis of the left leg. She is on IV Rocephin and clindamycin. Her vital signs are stable, afebrile. White blood cell count is trending down. Blood and urine cultures are pending. Lactic acid is back to normal. Plan: Continue same treatment. #2 acute cystitis: On IV Rocephin as above. Overnight, she remained afebrile, leukocytosis improving. Urine cultures pending. #3 acute left lower extremity cellulitis: In context of history of recurrent cellulitis of the both legs. Left leg is red, swollen, erythematous and hot to palpation. She is on IV Rocephin and clindamycin as above. Blood cultures pending. Plan as above to continue same treatment. #4 stage III chronic kidney disease: Baseline creatinine has been around 1.4-1.6 mg/dL. Admission creatinine was 1.83, close to baseline. I doubt acute kidney injury at this time. Creatinine today came down to 1.59. Plan to encourage oral intake, repeat BMP tomorrow morning. #4 chronic anemia: It is microcytic anemia. Patient denies any bleeding from body orifices. Baseline hemoglobin lately has been around 9-10 g/dL. Today's hemoglobin is 8.8 g/dL. No indication for transfusion. Plan: Stool for occult blood, serum iron, TIBC, serum ferritin. #5 type 2 diabetes mellitus: Blood sugar stable, continue sliding scale, ADA diet. #6 CAD status post CABG and stents: Stable, no acute issues. Continue metoprolol and Xarelto. #7 paroxysmal atrial fibrillation: Rate is controlled, blood pressure stable, continue amiodarone and metoprolol for rate control, continue Xarelto for anticoagulation. #8 hypertension: Blood pressure stable, continue current medications. #9 hyperlipidemia: Continue statins. #10 DVT prophylaxis: Continue Xarelto. This note was generated with [employer] software. It may contain incorrect words, spelling, and punctuation that were not noted in checking the note before signing. Code Visit Inpatient E&M: 52730 Subs Hosp L2
[2018-02-17] MEDS: Insulin Lispro 100 UNIT/ML INSULN.PEN SQ (11:04)
[2018-02-17 13:01] LABS: Ferritin 35 ng/mL (8-252); Iron 12 ug/dL (50-170); Iron Binding Capacity,Total 292 ug/dL (250-450); PERCENT IRON SATURATION 4.1 % (15.0-55.0)
[2018-02-17 17:20] LABS: Bedside Glucose 125 mg/dL (70-110)
[2018-02-17 22:11] LABS: Bedside Glucose 134 mg/dL (70-110)
[2018-02-18] VITALS (12 sets, daily range): BP systolic 118–154; BP diastolic 47–78; PULSE 63–72; RESP 16–18; TEMP 36.8–37.1; O2SAT 94–98
[2018-02-18] MEDS: Nystatin Powder 15gm Bottle 1 APPLIC TOPICAL ×3 (05:03→21:58)
[2018-02-18] MEDS: 0.9% NaCl Peripheral Flush Adult/Peds IV (05:07)
[2018-02-18 06:23] LABS: Absolute Lymphocyte Count 1.45 X10^3/ul (0.83-4.51); Anion Gap 10 (5-15); BUN 20 mg/dL (7-18); BUN/Creat Ratio 15.4 RATIO (10-20); Basophil# 0.02 X10^3/uL; Basophil% 0.2 % (0-1); Calcium,Total 8.4 mg/dL (8.5-10.1); Chloride 109 mmol/L (98-107); EST Glomerular Filtration Rate 43 mL/min (>60); Eosinophil# 0.16 X10^3/uL; Eosinophils% 1.3 % (0-5); Est Glom Filt Rate - Afr Amer 52 mL/min (>60); Estimated Creatinine Clearance 27.27 ml/min; Glucose 105 mg/dL (74-106); Hematocrit 27.3 % (37-47); Hemoglobin 7.6 g/dl (12.0-15.0); Lymphocyte # 1.45 X10^3/ul (4.0); Lymphocyte % 11.6 % (19-41); Mean Corp Hgb Conc 27.8 g/gl (32-36); Mean Corpuscular Hgb 22.2 pg (27.0-32.0); Mean Corpuscular Volume 79.6 fL (81-99); Mean Platelet Vol. 9.8 fl (6.2-12.0); Monocyte# 0.94 X10^3/uL; Monocyte% 7.5 % (0-10); Neutrophil # 9.95 X10^3/uL (2.7-7.7); Neutrophil % 79.2 % (47-70); Platelet Count 248 K/mm3 (150-450); Potassium 3.6 mmol/L (3.5-5.1); RBC Distribution Width CV 17.6 % (11.6-14.6); RBC Distribution Width SD 48.3 fl (35.1-43.9); Red Blood Count 3.43 M/mm3 (4.2-5.4); Sodium Level 147 mmol/L (136-145); White Blood Count 12.6 K/mm3 (4.4-11.0)
[2018-02-18 07:09] LABS: POSITIVE COUNT NO; POSITIVE DIFFERENTIAL NO; POSITIVE MORPHOLOGY NO
[2018-02-18 07:30] LABS: Bedside Glucose 129 mg/dL (70-110)
[2018-02-18] MEDS: Rivaroxaban 15 MG Tablet PO (08:18)
[2018-02-18] MEDS: Ferrous Sulfate 325 MG Tablet PO (08:18)
[2018-02-18] MEDS: Magnesium Oxide 400 MG Tablet PO ×2 (10:35→21:47)
[2018-02-18] MEDS: DULoxetine Hcl 60 MG Capsule PO (10:36)
[2018-02-18] MEDS: Pantoprazole Sodium 40 MG Tablet PO (10:36)
[2018-02-18] MEDS: Metoprolol Tartrate 50 MG Tablet PO ×2 (10:36→21:47)
[2018-02-18] MEDS: Amiodarone 200 MG Tablet PO (10:36)
[2018-02-18] MEDS: Insulin Lispro 100 UNIT/ML INSULN.PEN SQ (10:52)
[2018-02-18 11:05] LABS: Bedside Glucose 164 mg/dL (70-110)
--- NOTE | 2018-02-18 11:15 | CASEMGMT ---
INÉS GLEASON Face to Face with patient for initial transition planning/care coordination assessment. INÉS GLEASON introduced self and role at [facility]. Patient sitting in chair, alert and oriented. Patient willing to participate in assessment and is able to answer all questions appropriately. Care providers, pharmacy, and demographics verified. Patient wishes to discharge home but is agreeable to go to SNF for additional therapy per DIRECTOR OF DIAGNOSTIC IMAGING's recommendation. INÉS GLEASON informed patient that INÉS GLEASON will update JAGDEEP, who will provide patient with list of SNF in-network with insurance. Patient states she has no further needs or concerns at this time. INÉS GLEASON updated JAGDEEP Palumbo regarding referral for SNF at discharge. PCP: Salvador Specialists: Cheryl print journalist Preferred Pharmacy: [facility] Insurance: [facility] Prescription Benefit: Yes Living Will/HPOA: Yes son Farhat Ya LNOK: Son, sister Living Arrangements: Patient lives with sister, son, and [id number] in home. Patient states that she is independent at home. Transportation: Family DME/HHC: Patient states she has shower chair, raised toilet seat, lift chair, walker, rollator, and wheelchair at home. Patient states that she has had [place] at home in the past. Patient has been to [facility], [facility], and [facility] in the past. Disposition Plan: SNF pending acceptance and precert. Digna GOMEZ, RN, CM
--- NOTE | 2018-02-18 12:37 | CASEMGMT ---
Addendum entered by Digna Palumbo 02/18/18 16:20: SW updated pt that [facility] is able to accept and has submitted for pre-cert. Original Note: Addendum entered by Digna Palumbo 02/18/18 15:08: SW spoke with Radha at [facility] stating she is able to accept and will submit for pre-cert Original Note: Social Work Note RN ROSIBEL Hagan updated this worker that pt is agreeable to SNF and would like list of SNF in network with pt's insurance. SW met with pt. SW introduced self and role at [facility]. Pt is alert and orientated x3. Pt confirms that she is agreeable to SNF. SW provided pt with list of SNF. The SNF in area with pt's insurance are [facility] and [place]. Wound Nurse Hannah informed this worker that pt would like referral sent to [place]. SW placed a call to Sheir at [place], per [facility] they don't have any female beds. SW updated pt of this. Pt agreeable to referral being sent to [facility]. JAGDEEP placed a call to [facility] and left message for Radha. JAGDEEP faxed referral to [facility]. Plan: [facility] pending acceptance and pre-cert Digna Palumbo EXTRA GANG SUPERVISOR, HOME CARE NURSE
[2018-02-18] MEDS: Cefazolin 1 GM/50 ML BAG IV ×2 (14:12→21:51)
--- NOTE | 2018-02-18 15:10 | CHAPLAIN ---
Type of Pastoral Visit _x__ Initial Visit ___ Follow-up Visit ___ On-call Visit ___ General Patient Visit ___ Spiritual Assessment ___ Family Conference ___ Bereavement ___ Rapid Response ___ Code Blue ___ Other (describe below) Pastoral Care Referral From _x__ Patient ___ Family ___ Nurse ___ Physician ___ Foreign Exchange Student Coordinator ___ Invasive Manager ___ Other (describe below) Sacrament/Intervention _x__ Active listening ___ Anointing ___ Rastafarian _x__ Bereavement ___ Communion _x__ Aminah exploration ___ _x__ Life review _x__ Prayer ___ Reconciliation ___ Sacrament of Sick _x__ Supportive presence ___ Wedding ___ Other (describe below) Pastoral Comments patient says I sure could use you right now
[2018-02-18 16:25] LABS: Bedside Glucose 122 mg/dL (70-110)
--- NOTE | 2018-02-18 19:34 | PCM.PROGNOTE ---
Patient Problems: Active and Suspected Problems (Last Reviewed 02/17/18 @ 00:56 by Oziel Angel MD) Severe sepsis (Acute) Acute cystitis (Acute) Cellulitis (Acute) Subjective: Patient was seen and examined today, she exhibited some mild confusion this morning-she did not know the year, later this morning, social media developer called me to let me know that the patient has agreed to go into a correction for short-term care. Patient's urine culture grew out E. coli-it is sensitive to Ancef, I change the patient's antibiotic to Ancef today. Wound care is seeing the patient, I did not examine the patient's leg wounds today. - Physical Exam General: Alert, Cooperative, No apparent distress, Well developed HEENT: Atraumatic, PERRLA, EOMI, Normocephalic Oral: Moist Mucosa Neck: Supple, No Nuchal Rigidity, Trachea Midline, Thyroid Normal Size and Texture Lungs: Clear to auscultation, Normal air movement, No rhonchi, No wheeze, No rales Cardiovascular: Regular rate, Regular Rhythm, Normal S1, Normal S2, No murmurs, No Ectopic Activity, PMI Normal, No rub noted, No Gallop Abdomen: Bowel Sounds Present, Soft, Non Tender, Non-Distended, Obese Extremities: No clubbing, No cyanosis, Edema - Chronic edematous changes are noted over both lower extremities Skin: - - Chronic redness is noted over the patient's lower extremities Neurological: Cranial nerves II-XII grossly intact, Neuro grossly intact, Sensory exam intact to light touch and pain Psych/Mental Status: Normal Affect, - - Patient exhibits mild confusion Vital Signs Temp Pulse Resp BP Pulse Ox 98.2 F 63 16 154/74 H 94 02/18/18 13:51 02/18/18 14:10 02/18/18 13:51 02/18/18 13:51 02/18/18 13:51 Oxygen Flow Rate (L/min) 2 Oxygen Delivery Method Room Air Weight: 97.2 kg Body Mass Index (BMI) 41.8 Finger Stick Blood Glucose 187 Intake and Output for Last 24 Hours 02/16/18 02/17/18 02/18/18 23:59 23:59 23:59 Intake Total 1795 / 1795 250 / 250 Output Total 200 / 200 Balance 1595 / 1595 250 / 250 Microbiology Past 72 Hours 02/16/18 22:30 Urine Culture - Final Urine, Catheterized Presumptive E. coli Laboratory Tests Past 24 Hrs 02/18/18 02/18/18 05:40 05:40 WBC 12.6 H RBC 3.43 L Hgb 7.6 L Hct 27.3 L MCV 79.6 L MCH 22.2 L MCHC 27.8 L RDW 17.6 H RDW Differential 48.3 H Plt Count 248 MPV 9.8 Immature Gran % (Auto) 0.200 Neut % (Auto) 79.2 H Lymph % (Auto) 11.6 L [place] % (Auto) 7.5 Eos % (Auto) 1.3 Baso % (Auto) 0.2 Absolute Neuts (auto) 10.0 H Absolute Lymphs (auto) 1.45 Total Counted Not Reportable Sodium 147 H Potassium 3.6 Chloride 109 H Carbon Dioxide 28.0 Anion Gap 10 BUN 20 H Creatinine 1.30 H Estim Creat Clear Calc 27.27 Est GFR (MDRD) Af Amer 52 L Est GFR (MDRD) Non-Af 43 L BUN/Creatinine Ratio 15.4 Glucose 105 Calcium 8.4 L POC Glucose 02/18/18 02/18/18 02/18/18 16:15 10:51 06:50 POC Glucose 122 H 164 H 129 H 02/17/18 21:53 POC Glucose 134 H Medical Necessity - Tobacco Use Smoking Status: Former smoker Assessment/Plan All Active Problems (Last Reviewed 02/17/18 @ 00:56 by Oziel Angel MD) Severe sepsis (Acute) Acute cystitis (Acute) Cellulitis (Acute) #1 severe sepsis secondary to acute cystitis from E. coli-patient's antibiotics were changed to Ancef #2 cellulitis of the lower legs-presumed secondary to gram-positive bacteria, again patient is now on Ancef #3 chronic kidney disease stage III secondary to type 2 diabetes #4 type 2 diabetes-continue present insulin coverage #5 paroxysmal atrial fibrillation-patient is chronically on rate limiting medications and Xarelto #6 coronary artery disease-stable #7 acute cystitis secondary to E. coli #8 iron deficiency anemia-etiology unclear, patient will be placed on IV Venofer, CBC will be repeated tomorrow #9 [id number] unclear at this point, suspect possible early dementia, PT and OT will see the patient, she will need at least temporary placement in a long term facility #10 obesity #11 hypertension #12 hyperlipidemia Code Visit Inpatient E&M: 14086 Subs Hosp L2
--- NOTE | 2018-02-18 19:42 | PN_ITS ---
Patient Problems: Active and Suspected Problems (Last Reviewed 02/17/18 @ 00:56 by Oziel Angel MD) Severe sepsis (Acute) Acute cystitis (Acute) Cellulitis (Acute) Subjective: Patient was seen and examined today, she exhibited some mild confusion this morning-she did not know the year, later this morning, social work manager called me to let me know that the patient has agreed to go into a fdc for short- term care. Patient's urine culture grew out E. coli-it is sensitive to Ancef, I change the patient's antibiotic to Ancef today. Wound care is seeing the patient, I did not examine the patient's leg wounds today. - Physical Exam General: Alert, Cooperative, No apparent distress, Well developed HEENT: Atraumatic, PERRLA, EOMI, Normocephalic Oral: Moist Mucosa Neck: Supple, No Nuchal Rigidity, Trachea Midline, Thyroid Normal Size and Texture Lungs: Clear to auscultation, Normal air movement, No rhonchi, No wheeze, No rales Cardiovascular: Regular rate, Regular Rhythm, Normal S1, Normal S2, No murmurs, No Ectopic Activity, PMI Normal, No rub noted, No Gallop Abdomen: Bowel Sounds Present, Soft, Non Tender, Non-Distended, Obese Extremities: No clubbing, No cyanosis, Edema - Chronic edematous changes are noted over both lower extremities Skin: - - Chronic redness is noted over the patient's lower extremities Neurological: Cranial nerves II-XII grossly intact, Neuro grossly intact, Sensory exam intact to light touch and pain Psych/Mental Status: Normal Affect, - - Patient exhibits mild confusion Vital Signs Temp Pulse Resp BP Pulse Ox 98.2 F 63 16 154/74 H 94 02/18/18 13:51 02/18/18 14:10 02/18/18 13:51 02/18/18 13:51 02/18/18 13:51 Oxygen Flow Rate (L/min) 2 Oxygen Delivery Method Room Air Weight: 97.2 kg Body Mass Index (BMI) 41.8 Finger Stick Blood Glucose 187 Intake and Output for Last 24 Hours 02/16/18 02/17/18 02/18/18 23:59 23:59 23:59 Intake Total 1795 / 1795 250 / 250 Output Total 200 / 200 Balance 1595 / 1595 250 / 250 Microbiology Past 72 Hours 02/16/18 22:30 Urine Culture - Final Urine, Catheterized Presumptive E. coli Laboratory Tests Past 24 Hrs 02/18/18 02/18/18 05:40 05:40 WBC 12.6 H RBC 3.43 L Hgb 7.6 L Hct 27.3 L MCV 79.6 L MCH 22.2 L MCHC 27.8 L RDW 17.6 H RDW Differential 48.3 H Plt Count 248 MPV 9.8 Immature Gran % (Auto) 0.200 Neut % (Auto) 79.2 H Lymph % (Auto) 11.6 L [place] % (Auto) 7.5 Eos % (Auto) 1.3 Baso % (Auto) 0.2 Absolute Neuts (auto) 10.0 H Absolute Lymphs (auto) 1.45 Total Counted Not Reportable Sodium 147 H Potassium 3.6 Chloride 109 H Carbon Dioxide 28.0 Anion Gap 10 BUN 20 H Creatinine 1.30 H Estim Creat Clear Calc 27.27 Est GFR (MDRD) Af Amer 52 L Est GFR (MDRD) Non-Af 43 L BUN/Creatinine Ratio 15.4 Glucose 105 Calcium 8.4 L POC Glucose 02/18/18 02/18/18 02/18/18 16:15 10:51 06:50 POC Glucose 122 H 164 H 129 H 02/17/18 21:53 POC Glucose 134 H Medical Necessity - Tobacco Use Smoking Status: Former smoker Assessment/Plan All Active Problems (Last Reviewed 02/17/18 @ 00:56 by Oziel Angel MD) Severe sepsis (Acute) Acute cystitis (Acute) Cellulitis (Acute) #1 severe sepsis secondary to acute cystitis from E. coli-patient's antibiotics were changed to Ancef #2 cellulitis of the lower legs-presumed secondary to gram-positive bacteria, again patient is now on Ancef #3 chronic kidney disease stage III secondary to type 2 diabetes #4 type 2 diabetes-continue present insulin coverage #5 paroxysmal atrial fibrillation-patient is chronically on rate limiting medications and Xarelto #6 coronary artery disease-stable #7 acute cystitis secondary to E. coli #8 iron deficiency anemia-etiology unclear, patient will be placed on IV Venofer, CBC will be repeated tomorrow #9 [id number] unclear at this point, suspect possible early dementia, PT and OT will see the patient, she will need at least temporary placement in a snf facility #10 obesity #11 hypertension #12 hyperlipidemia Code Visit Inpatient E&M: 35822 Subs Hosp L2
[2018-02-18 22:06] LABS: Bedside Glucose 138 mg/dL (70-110)
[2018-02-19] VITALS (25 sets, daily range): BP systolic 153–216; BP diastolic 58–101; PULSE 67–120; RESP 18–38; TEMP 36.5–37.2; O2SAT 66–100
--- NOTE | 2018-02-19 00:50 | NURSING ---
0050 This nurse and charge nurse entered pt's room to answer bed alarm. Upon entering room pt was noted to have labored breathing. C/O SOB, Chest pressure, and nausea. A/O person (this is pt's Norm). Spo2 66% on RA, HR 120, RR 34. 5L O2 was placed SPO2 89%, Non-rebreather was placed SPO2 99%. Blood glucose 172. 0051 BP 216/97, HR 101, RR 38. Dr Bledsoe notified, EKG, ABG's, Duoneb treatments,Troponin and CBC and 1x dose Hydralazine was ordered. Dr Bledsoe notified of results no new orders. 0120 BP 187/75, HR 96, RR 32, SPO2 100% non-rebreather, 0130 Duoneb given BP 154/87, HR 100 RR 34, SPO2 99@ nonrebreather. 0155 pt states she is feeling better BP 153/76, HR 96, RR 30, Temp 99.1 oral, SPO2 95% 4L. Will continue to monitor.
[2018-02-19 01:21] LABS: Absolute Lymphocyte Count 1.44 X10^3/ul (0.83-4.51); Absolute Neutrophil Count 8.1 X10^3/uL (2.0-7.7); Basophil# 0.06 X10^3/uL; Basophil% 0.6 % (0-1); Eosinophil# 0.15 X10^3/uL; Eosinophils% 1.4 % (0-5); Hematocrit 32.1 % (37-47); Hemoglobin 9.2 g/dl (12.0-15.0); Lymphocyte # 1.44 X10^3/ul (4.0); Lymphocyte % 13.4 % (19-41); Mean Corp Hgb Conc 28.7 g/gl (32-36); Mean Corpuscular Hgb 22.8 pg (27.0-32.0); Mean Corpuscular Volume 79.5 fL (81-99); Mean Platelet Vol. 10.2 fl (6.2-12.0); Monocyte# 0.81 X10^3/uL; Monocyte% 7.6 % (0-10); Neutrophil # 8.09 X10^3/uL (2.7-7.7); Neutrophil % 75.5 % (47-70); Platelet Count 281 K/mm3 (150-450); RBC Distribution Width CV 17.8 % (11.6-14.6); RBC Distribution Width SD 49.9 fl (35.1-43.9); Red Blood Count 4.04 M/mm3 (4.2-5.4); White Blood Count 10.7 K/mm3 (4.4-11.0)
[2018-02-19 01:22] LABS: POSITIVE COUNT NO; POSITIVE DIFFERENTIAL NO; POSITIVE MORPHOLOGY NO
[2018-02-19] MEDS: hydrALAZINE 20 MG/ML Vial IV (01:24)
[2018-02-19 01:25] LABS: Allen Test POS; Base Excess 2 mmol/L (-2 to +2); Bicarbonate 27.4 mmol/L (22-26); Blood Gas Specimen Type ART; O2 Delivery Device NRB Mask; PO2 169 mmHG (75-100); SITE L Radial; SO2 99 % (95-99); Time Given 112; Total Carbon Dioxide 29 mmol/L; pCO2 48.6 mmHg (35-45); pH 7.36 (7.35-7.45)
[2018-02-19] MEDS: 0.9% NaCl Peripheral Flush Adult/Peds IV ×3 (01:25→12:09)
[2018-02-19] MEDS: Ipratropium/Albuterol Sulfate 3 ML AMPUL.NEB INHALATION ×3 (01:27→18:53)
[2018-02-19 01:39] LABS: Anion Gap 7 (5-15); BUN 19 mg/dL (7-18); BUN/Creat Ratio 13.9 RATIO (10-20); Calcium,Total 8.9 mg/dL (8.5-10.1); Chloride 107 mmol/L (98-107); Creatinine, Serum 1.37 mg/dL (0.55-1.02); EST Glomerular Filtration Rate 40 mL/min (>60); Est Glom Filt Rate - Afr Amer 49 mL/min (>60); Estimated Creatinine Clearance 25.88 ml/min; Glucose 169 mg/dL (74-106); Potassium 3.8 mmol/L (3.5-5.1); Sodium Level 141 mmol/L (136-145)
[2018-02-19 01:41] LABS: Bedside Glucose 172 mg/dL (70-110)
[2018-02-19 04:06] LABS: Basophil# 0.04 X10^3/uL; Basophil% 0.3 % (0-1); Eosinophil# 0.04 X10^3/uL; Eosinophils% 0.3 % (0-5); Hematocrit 28.6 % (37-47); Hemoglobin 8.3 g/dl (12.0-15.0); Lymphocyte % 5.3 % (19-41); Mean Corpuscular Hgb 22.9 pg (27.0-32.0); Monocyte# 0.98 X10^3/uL; Monocyte% 6.5 % (0-10); Neutrophil # 13.03 X10^3/uL (2.7-7.7); Neutrophil % 86.7 % (47-70); Platelet Count 256 K/mm3 (150-450); RBC Distribution Width CV 17.8 % (11.6-14.6); RBC Distribution Width SD 48.9 fl (35.1-43.9); Red Blood Count 3.62 M/mm3 (4.2-5.4)
[2018-02-19 04:08] LABS: POSITIVE COUNT NO; POSITIVE DIFFERENTIAL NO; POSITIVE MORPHOLOGY NO
--- NOTE | 2018-02-19 04:40 | NURSING ---
notified Dr Bledsoe of pt's Troponin results
[2018-02-19] MEDS: Cefazolin 1 GM/50 ML BAG IV (05:29)
[2018-02-19] MEDS: Nystatin Powder 15gm Bottle 1 APPLIC TOPICAL ×3 (05:29→21:58)
[2018-02-19 05:40] LABS: Bedside Glucose 141 mg/dL (70-110)
[2018-02-19] MEDS: Acetaminophen 325 MG Tablet 650 MG PO ×2 (06:49→17:05)
--- NOTE | 2018-02-19 07:06 | NURSING ---
notified Dr. Bledsoe of pt's third Troponin results
--- NOTE | 2018-02-19 07:38 | RAD_ITS ---
STUDY: X-RAY CHEST REASON FOR EXAM: Female, 73 years old. Shortness of breath. Chest pain. TECHNIQUE: Single AP portable view of the chest. COMPARISON: Comparison is made with prior study dated February 16, 2018. FINDINGS: EKG electrodes are seen. There now is evidence of vascular congestion and mild CHF. Increased markings at both lung bases with areas of confluence. This may represent bibasilar atelectasis. Sternal cerclage wires and vascular clips are present from a prior sternotomy and coronary artery bypass graft procedure (CABG). Myocardial mainly. Normal mediastinum and alee. Normal visualized pulmonary arteries. There is atherosclerotic calcification of the aortic arch with tortuosity. Normal visualized thoracic spine. There is degenerative osteoarthritis of the bilateral shoulders. Hiatal hernia. RAD/Chest 1 View (Portable) IMPRESSION: Findings in keeping with CHF and bibasilar atelectasis. Electronically Signed: Milo Hughes MD at 9:04 EST Tel [phone], Service support ,
[2018-02-19] MEDS: Rivaroxaban 15 MG Tablet PO (09:09)
[2018-02-19] MEDS: Ferrous Sulfate 325 MG Tablet PO (09:09)
[2018-02-19] MEDS: Amiodarone 200 MG Tablet PO (09:09)
[2018-02-19] MEDS: Metoprolol Tartrate 50 MG Tablet PO ×2 (09:10→21:57)
[2018-02-19] MEDS: Pantoprazole Sodium 40 MG Tablet PO (09:10)
[2018-02-19] MEDS: Magnesium Oxide 400 MG Tablet PO ×2 (09:10→21:57)
[2018-02-19] MEDS: DULoxetine Hcl 60 MG Capsule PO (09:10)
--- NOTE | 2018-02-19 09:48 | CASEMGMT ---
Addendum entered by Digna Palumbo 02/19/18 11:13: JAGDEEP received message from Rosalinda at [facility] stating pre-cert has been obtained. Physician updated. Original Note: Social Work Note JAGDEEP faxed updated clinicals to [facility]. Plan: [facility] pending pre-cert Digna Palumbo FLOOR HAND, MATERIALS MGMT TECH
[2018-02-19] MEDS: Insulin Lispro 100 UNIT/ML INSULN.PEN SQ (12:09)
[2018-02-19 12:20] LABS: Bedside Glucose 168 mg/dL (70-110)
--- NOTE | 2018-02-19 14:06 | CASEMGMT ---
Social Work Note Pt was admitted 12/16/17 and was informed that Advanced Directives are not on chart at [facility] and was advised to bring in copies to [facility]. Digna Palumbo AQUACULTURE PROGRAM DIRECTOR, TOGGLE PRESS OPERATOR
--- NOTE | 2018-02-19 16:27 | NURSING ---
16fr harding inserted and immediate return of clear turquoise urine. pt reports that color from azo that was on for burning medical charge entry specialist aware.
[2018-02-19] MEDS: Furosemide 80 MG Tablet PO (17:05)
[2018-02-19] MEDS: Cephalexin 500 MG Capsule PO ×2 (17:09)
[2018-02-19 17:10] LABS: Bedside Glucose 115 mg/dL (70-110)
--- NOTE | 2018-02-19 19:40 | CPS ---
pt left mask on for about 5 min -said she was done and wanted to go to sleep
--- NOTE | 2018-02-19 19:47 | PN_ITS ---
Subjective: Patient seen and examined today, earlier this morning she had some respiratory issues with a low pulse ox. Chest x-ray was not performed however and I got a chest x-ray today which indicated the patient was in congestive heart failure and had atelectasis. Patient's beta natruretic peptide that I obtained today was elevated, her last echocardiogram showed a preserved EF. Patient has some chest pain last night but is not complaining of chest pain at this time, patient's cardiac enzymes elevated slightly, I do not think she had a cardiac event. This afternoon, we lost venous access to the patient, patient is on low flow oxygen at the present time and I think she can be treated with oral furosemide with a repeat chest x-ray tomorrow. We received permission for the patient to go to an extended care facility today but I think she needs to be kept until tomorrow and I need to reassess her tomorrow to see if she has diuresed. - Physical Exam General: Alert, Oriented x3, Cooperative, No apparent distress, Well developed, Well nourished HEENT: Atraumatic, PERRLA, EOMI, Normocephalic Oral: Moist Mucosa Neck: Supple, Trachea Midline, Thyroid Normal Size and Texture Lungs: Normal air movement, No rhonchi, No wheeze, Diminished Cardiovascular: Regular rate, Regular Rhythm, Normal S1, Normal S2, No murmurs, No Ectopic Activity, PMI Normal, No rub noted, No Gallop Abdomen: Bowel Sounds Present, Soft, Non Tender, Non-Distended, No hernias noted Extremities: No clubbing, No cyanosis, Capillary Refill Less than 3 Seconds Skin: No rashes, No breakdown Musculoskeletal: No Tenderness to Palpation of Joints or Extremities Neurological: Cranial nerves II-XII grossly intact, Neuro grossly intact, Sensory exam intact to light touch and pain, Coordination normal Psych/Mental Status: Normal Affect, Appropriate, Alert and oriented to time, place, person, mood and affect Vital Signs Temp Pulse Resp BP Pulse Ox 98.0 F 80 18 157/62 H 96 02/19/18 14:00 02/19/18 18:55 02/19/18 18:55 02/19/18 14:00 02/19/18 18:55 Oxygen Flow Rate (L/min) 3 Oxygen Delivery Method Nasal Cannula Weight: 97.2 kg Body Mass Index (BMI) 41.8 Finger Stick Blood Glucose 187 Intake and Output for Last 24 Hours 02/17/18 02/18/18 02/19/18 23:59 23:59 23:59 Intake Total 1795 / 1795 250 / 250 438 / 438 Output Total 200 / 200 500 / 500 Balance 1595 / 1595 250 / 250 -62 / -62 Microbiology Past 72 Hours 02/16/18 21:26 Blood Culture - Preliminary Blood Culture (Wb) - Anticubital Left No growth in 48 hours. 02/16/18 21:50 Blood Culture - Preliminary Blood Culture (Wb) - Anticubital Left No growth in 48 hours. 02/16/18 22:30 Urine Culture - Final Urine, Catheterized Presumptive E. coli Laboratory Tests Past 24 Hrs 02/19/18 02/19/18 02/19/18 01:12 01:12 01:19 WBC 10.7 RBC 4.04 L Hgb 9.2 L Hct 32.1 L MCV 79.5 L MCH 22.8 L MCHC 28.7 L RDW 17.8 H RDW Differential 49.9 H Plt Count 281 MPV 10.2 Immature Gran % (Auto) 1.500 H Neut % (Auto) 75.5 H Lymph % (Auto) 13.4 L [place] % (Auto) 7.6 Eos % (Auto) 1.4 Baso % (Auto) 0.6 Absolute Neuts (auto) 8.1 H Absolute Lymphs (auto) 1.44 Total Counted Not Reportable Specimen Type ART Sample Site L Radial pH 7.36 Bicarbonate Actual 27.4 H POC Total CO2 29 Base Excess 2 O2 Saturation 99 ABG pCO2 48.6 H ABG pO2 169 H Rakesh Test POS O2 Delivery Device NRB Mask Liter Flow 15.0 Blood Gas Notified Whom HOSP Blood Gas Notified Time 112 Sodium 141 Potassium 3.8 Chloride 107 Carbon Dioxide 27.0 Anion Gap 7 BUN 19 H Creatinine 1.37 H Estim Creat Clear Calc 25.88 Est GFR (MDRD) Af Amer 49 L Est GFR (MDRD) Non-Af 40 L BUN/Creatinine Ratio 13.9 Glucose 169 H Calcium 8.9 Troponin I 0.032 B-Natriuretic Peptide 02/19/18 02/19/18 02/19/18 04:00 04:00 06:22 WBC 15.0 H RBC 3.62 L Hgb 8.3 L Hct 28.6 L MCV 79.0 L MCH 22.9 L MCHC 29.0 L RDW 17.8 H RDW Differential 48.9 H Plt Count 256 MPV 10.0 Immature Gran % (Auto) 0.900 Neut % (Auto) 86.7 H Lymph % (Auto) 5.3 L [place] % (Auto) 6.5 Eos % (Auto) 0.3 Baso % (Auto) 0.3 Absolute Neuts (auto) 13.0 H Absolute Lymphs (auto) 0.80 L Total Counted Not Reportable Specimen Type Sample Site pH Bicarbonate Actual POC Total CO2 Base Excess O2 Saturation ABG pCO2 ABG pO2 Rakesh Test O2 Delivery Device Liter Flow Blood Gas Notified Whom Blood Gas Notified Time Sodium Potassium Chloride Carbon Dioxide Anion Gap BUN Creatinine Estim Creat Clear Calc Est GFR (MDRD) Af Amer Est GFR (MDRD) Non-Af BUN/Creatinine Ratio Glucose Calcium Troponin I 0.108 H 0.138 H B-Natriuretic Peptide 02/19/18 14:38 WBC RBC Hgb Hct MCV MCH MCHC RDW RDW Differential Plt Count MPV Immature Gran % (Auto) Neut % (Auto) Lymph % (Auto) [place] % (Auto) Eos % (Auto) Baso % (Auto) Absolute Neuts (auto) Absolute Lymphs (auto) Total Counted Specimen Type Sample Site pH Bicarbonate Actual POC Total CO2 Base Excess O2 Saturation ABG pCO2 ABG pO2 Rakesh Test O2 Delivery Device Liter Flow Blood Gas Notified Whom Blood Gas Notified Time Sodium Potassium Chloride Carbon Dioxide Anion Gap BUN Creatinine Estim Creat Clear Calc Est GFR (MDRD) Af Amer Est GFR (MDRD) Non-Af BUN/Creatinine Ratio Glucose Calcium Troponin I B-Natriuretic Peptide 1453.0 H POC Glucose 02/19/18 02/19/18 02/19/18 17:03 12:05 05:28 POC Glucose 115 H 168 H 141 H 02/19/18 02/18/18 00:47 21:53 POC Glucose 172 H 138 H Medical Necessity - Tobacco Use Smoking Status: Former smoker Assessment/Plan All Active Problems (Last Reviewed 02/17/18 @ 00:56 by Oziel Angel MD) Diastolic CHF (Acute) Severe sepsis (Acute) Acute cystitis (Acute) Cellulitis (Acute) #1 severe sepsis secondary to acute cystitis from E. coli-patient's antibiotics were changed to oral Keflex #2 cellulitis of the lower legs-presumed secondary to gram-positive bacteria, again patient is now on Keflex #3 chronic kidney disease stage III secondary to type 2 diabetes #4 type 2 diabetes-continue present insulin coverage #5 paroxysmal atrial fibrillation-patient is chronically on rate limiting medications and Xarelto #6 coronary artery disease-stable #7 acute cystitis secondary to E. coli #8 iron deficiency anemia-etiology unclear, patient will be placed on IV Venofer, CBC will be repeated tomorrow #9 [id number] unclear at this point, suspect possible early dementia, PT and OT will see the patient, she will need at least temporary placement in a longterm facility #10 obesity #11 hypertension #12 hyperlipidemia #13 acute diastolic congestive heart failure-EF 35% on last echocardiogram 2017- patient will be given oral Lasix, chest x-ray will be repeated in a.m. Code Visit Inpatient E&M: 60780 Subs Hosp L2
[2018-02-19] MEDS: Furosemide 20 MG Tablet 60 MG PO (21:57)
[2018-02-19 22:10] LABS: Bedside Glucose 129 mg/dL (70-110)
[2018-02-20] VITALS (8 sets, daily range): BP systolic 151–160; BP diastolic 74–93; PULSE 68–87; RESP 16–18; TEMP 36.8–37.3; O2SAT 96–98
--- NOTE | 2018-02-20 05:55 | RAD_ITS ---
STUDY: X-RAY CHEST REASON FOR EXAM: Female, 73 years old. Shortness of breath TECHNIQUE: Frontal view COMPARISON: February 19, 2018 FINDINGS: The lungs are clear and expanded. There is no demonstrated pleural abnormality. Normal size heart. There has been open heart surgery. Normal visualized pulmonary arteries. Normal visualized aortic arch and descending thoracic aorta. Normal visualized thoracic spine. Normal visualized ribs, clavicles, and shoulders. There is no demonstrated abnormality of the visualized soft tissue structures of the upper abdomen. RAD/Chest 1 View (Portable) IMPRESSION: There is NO acute cardiopulmonary abnormality. Electronically Signed: Angelito Montenegro MD at 7:09 EST , Service support ,
[2018-02-20 06:07] LABS: Basophil% 0.3 % (0-1); Eosinophils% 1.3 % (0-5); Hematocrit 29.7 % (37-47); Hemoglobin 8.3 g/dl (12.0-15.0); Mean Corp Hgb Conc 27.9 g/gl (32-36); Mean Corpuscular Hgb 22.1 pg (27.0-32.0); Mean Corpuscular Volume 79.2 fL (81-99); Mean Platelet Vol. 9.6 fl (6.2-12.0); Monocyte% 7.8 % (0-10); Neutrophil % 79.9 % (47-70); Platelet Count 280 K/mm3 (150-450); RBC Distribution Width CV 18.1 % (11.6-14.6); RBC Distribution Width SD 48.9 fl (35.1-43.9); Red Blood Count 3.75 M/mm3 (4.2-5.4); White Blood Count 11.7 K/mm3 (4.4-11.0)
[2018-02-20 06:08] LABS: Absolute Lymphocyte Count 1.17 X10^3/ul (0.83-4.51); Absolute Neutrophil Count 9.4 X10^3/uL (2.0-7.7); Basophil# 0.03 X10^3/uL; Eosinophil# 0.15 X10^3/uL; Lymphocyte # 1.17 X10^3/ul (4.0); Monocyte# 0.92 X10^3/uL; Neutrophil # 9.37 X10^3/uL (2.7-7.7)
[2018-02-20 06:19] LABS: POSITIVE COUNT NO; POSITIVE DIFFERENTIAL NO; POSITIVE MORPHOLOGY NO
[2018-02-20] MEDS: Cephalexin 500 MG Capsule PO ×2 (06:20→13:50)
[2018-02-20] MEDS: Furosemide 20 MG Tablet 60 MG PO ×2 (06:20→13:50)
[2018-02-20] MEDS: Nystatin Powder 15gm Bottle 1 APPLIC TOPICAL ×2 (06:21→13:49)
[2018-02-20 06:22] LABS: Anion Gap 7 (5-15); BUN 14 mg/dL (7-18); BUN/Creat Ratio 13.3 RATIO (10-20); Calcium,Total 8.9 mg/dL (8.5-10.1); Chloride 102 mmol/L (98-107); Creatinine, Serum 1.05 mg/dL (0.55-1.02); EST Glomerular Filtration Rate 54 mL/min (>60); Est Glom Filt Rate - Afr Amer 66 mL/min (>60); Estimated Creatinine Clearance 33.76 ml/min; Glucose 109 mg/dL (74-106); Potassium 3.2 mmol/L (3.5-5.1); Sodium Level 143 mmol/L (136-145)
[2018-02-20 06:46] LABS: Bedside Glucose 101 mg/dL (70-110)
[2018-02-20] MEDS: Ipratropium/Albuterol Sulfate 3 ML AMPUL.NEB INHALATION ×2 (07:20→13:18)
[2018-02-20] MEDS: Magnesium Oxide 400 MG Tablet PO (08:55)
[2018-02-20] MEDS: Amiodarone 200 MG Tablet PO (08:55)
[2018-02-20] MEDS: Pantoprazole Sodium 40 MG Tablet PO (08:55)
[2018-02-20] MEDS: Metoprolol Tartrate 50 MG Tablet PO (08:55)
[2018-02-20] MEDS: DULoxetine Hcl 60 MG Capsule PO (08:55)
[2018-02-20] MEDS: Ferrous Sulfate 325 MG Tablet PO (08:55)
[2018-02-20] MEDS: Rivaroxaban 15 MG Tablet PO (10:28)
--- NOTE | 2018-02-20 10:59 | PCM.TXEXTCAR ---
- Diet 02/17/18 01:47 Diet: Calorie Controlled Type of Dietary Supplement:: Glucerna 1.5 emilio Is pt able to select menu?: Yes Diet Comments: No concentrated sweets, BREAKFAST 8, LUNCH NOON, DINNER 5 PLEASE How many daily calories?: 1800 calorie - Routine Orders/Code Status O2 Liters per Minute: 2 O2 Frequency: Continuous Keep PO Greater than or Equal to (%): 90 Routine Lab Work: CBC - in 5 days, BMP - in 5 days Code Status: Full Code - Wound(s) LLE Wound Type: EDEMA W/REDNESS left upper arm Wound Type: Skin Tear right forearm Wound Type: Abrasion top of bright foot Wound Type: Abrasion RT FOOT Wound Type: Stasis Ulcer Dressing Change: Adaptic left lateral lower leg Wound Type: Stasis Ulcer Dressing Change: Adaptic - Therapies Weight Bearing: Weight bearing as tolerated - with walker Physical Therapy: Eval and Treat Occupational Therapy: Eval and Treat - Problem/Diagnosis (1) Diastolic CHF Status: Acute Current Visit: Yes (2) Severe sepsis Status: Acute Current Visit: Yes (3) Acute cystitis Status: Acute Comment: E. coli Current Visit: Yes (4) Cellulitis Status: Acute Current Visit: Yes (5) Edema, lower extremity Status: Chronic Current Visit: No (6) Atherosclerotic heart disease of [place] coronary artery without angina pectoris Status: Chronic Comment: PTCA/stent to CX; PTCA/Stent PTCA/stent to prox RCA 05/06; PTCA/LILY in mid to distal RCA 08/29/12; CABG x2 ARREGUIN tp LAD and SVG to OM2 01/02/11 Current Visit: No (7) Paroxysmal atrial fibrillation Status: Chronic Current Visit: No (8) Hypertension Status: Chronic Current Visit: No (9) Cognitive impairment Status: Chronic Comment: patient is confused at times Current Visit: Yes (10) Iron deficiency anemia Status: Chronic Comment: etiology unknown Current Visit: Yes - Allergies/Procedures Done in Hospital Allergies/Adverse Reactions: Allergies ciprofloxacin [From Cipro] Allergy (Verified 02/16/18 21:16) Hives ciprofloxacin HCl [From Cipro] Allergy (Verified 02/16/18 21:16) Hives Latex, Natural Rubber Allergy (Verified 02/16/18 21:16) Rash Penicillins [PCN] Allergy (Verified 02/16/18 21:16) Hives codeine Adverse Reaction (Unknown, Verified 02/16/18 21:16) Unknown adhesive tape Adverse Reaction (Verified 02/16/18 21:16) Rash Procedures: None - Type of Care/Length of Stay Estimated LOS: Convalescent Care Less Than 30 days Type of Care Needed: Skilled Rehab Potential: Good Prognosis: Good - Additional Orders/Day of Discharge H&P will serve as current which was dated: 02/16/18 Day of Discharge: 02/20/18 - Dietary and Speech Recommendations Dietitian Recommendations/Changes: Will d/c ONS medpass as not indicated at this time. Will decrease glucerna shake (providing as Glucerna 1.5 for enteral nutrition) to 120 cc w/ meals per pt preference. Rec diet change to 1800 emilio Cardiac/SG d/t pmhx - Follow Up Care Primary Care Physician: Octaviano Franco Chi, MD [Primary Care Provider] -
--- NOTE | 2018-02-20 12:03 | CASEMGMT ---
Social Work Note Pt is being discharged today. JAGDEEP faxed discharge paperwork to Rosalinda at [facility] including transfer to extended care facility, signed medication list, and any scripts. Originals in SNF folder and copy on pt's chart. Per RN and physician pt is able to transport via cot. JAGDEEP placed a call to [facility] and set up transportation via cot for 2:00pm. Transportation form on SNF folder and copy on pt's chart. JAGDEEP updated RNRosalinda at [facility] and pt of transportation. Per pt her sister is already at [facility] and her daughter in law and son know that pt is being discharged today. [facility] complete in [facility]. Originals in SNF folder and copy on pt's chart. Plan: Discharge to [facility] today at 2:00pm with [facility] transporting via cot Digna Palumbo SECURITY MESSENGER, RN APPEALS
[2018-02-20 12:10] LABS: Bedside Glucose 118 mg/dL (70-110)
--- NOTE | 2018-02-20 14:09 | NURSING ---
report called to Dorota at [facility]. pt transported out at this time via cot
--- NOTE | 2018-02-20 21:47 | PCM.DC.SUM ---
Discharge Date and Diagnosis Date of Admission: 02/16/18 Date of Discharge: 02/20/18 - Primary Discharge Diagnosis #1 severe sepsis secondary to acute cystitis from E. coli #2 cellulitis of the lower legs-presumed secondary to gram-positive bacteria #3 chronic kidney disease stage III secondary to type 2 diabetes #4 type 2 diabetes #5 paroxysmal atrial fibrillation #6 coronary artery disease-stable #7 acute cystitis secondary to E. coli #8 iron deficiency anemia-etiology unclear #9 [id number] unclear at this point, suspect possible early dementia #10 obesity #11 hypertension #12 hyperlipidemia #13 acute diastolic congestive heart failure-EF 35% on last echocardiogram 2018 - Secondary Discharge Diagnosis Chronic Problems (Last Reviewed 02/17/18 @ 00:56 by Oziel Angel MD) Cognitive impairment (Chronic) patient is confused at times Iron deficiency anemia (Chronic) etiology unknown PVD (peripheral vascular disease) (Chronic) Controlled diabetes mellitus (Chronic) Edema, lower extremity (Chronic) Presence of stent in coronary artery (Chronic) PTCA/stent to CX; PTCA/Stent PTCA/stent to prox RCA 05/06; PTCA/LILY in mid to distal RCA 08/29/12 Atherosclerotic heart disease of [place] coronary artery without angina pectoris (Chronic) PTCA/stent to CX; PTCA/Stent PTCA/stent to prox RCA 05/06; PTCA/LILY in mid to distal RCA 08/29/12; CABG x2 ARREGUIN tp LAD and SVG to OM2 01/02/11 S/P CABG (coronary artery bypass graft) (Chronic ~01/02/11) CABG x2 ARREGUIN tp LAD and SVG to OM2 01/02/11 Paroxysmal atrial fibrillation (Chronic) Hyperlipidemia (Chronic) Hypertension (Chronic) Hospital Course and Treatment Consultations 02/17/18 01:47 Consult: Onc/Wound/freezing room worker Routine Comment: Reason for Consult:: Bilateral leg wound Operations: None Procedures: None Summary of Care Provided: The patient is a 73 year old F who was seen in the emergency room at [facility] with a chief complaint of left leg redness, and evaluation in the ER revealed her temp to be 100.4, there was significant erythema of the left leg noted, labs revealed white blood cell count of 19.6, hemoglobin was 9.4, creatinine was 1.83, lactic acid was elevated at 3.6. Urinalysis revealed +2 leukocytes and positive nitrites, chest x-ray revealed no acute process. Patient was given IV fluids, she was given IV antibiotics, she was felt to have severe sepsis and she was admitted to [place] [address]. Patient was seen in consultation by the wound care nurse, she was seen by PT and OT, and the patient's urinalysis was positive for E. coli. Patient remained moderately confused and she was felt to have possible dementia but she consented [facility] for [facility] care. On 02/19/18, patient became short of breath and it was noted that she had what appeared to be congestive heart failure which was believed to be diastolic congestive heart failure. Patient was given oral Lasix and her chest x-ray was repeated on 02/20/18 and showed resolution of her CHF. On 02/20/18, patient was seen and examined: On examination she appeared in good health and spirits. Vital signs as documented. Skin warm and dry and without overt rashes. Neck without JVD. Lungs clear. Heart exam notable for regular rhythm, normal sounds and absence of murmurs, rubs or gallops. Abdomen unremarkable and without evidence of organomegaly, masses, or abdominal aortic enlargement. Extremities-there is evidence of chronic edematous changes over both lower legs along with stasis changes bilaterally. Neuro: Cranial nerves II through XII are grossly intact, no focal motor deficits were noted, sensation to light touch and pinprick is intact. Psych: Patient is alert and mildly confused, she does not appear anxious or depressed On 02/20/18, patient was seen and examined and felt to be stable for discharge to a [facility]iary facility for further care. - Physical Exam Vital Signs Temp Pulse Resp BP Pulse Ox 98.2 F 87 16 160/74 H 96 02/20/18 13:45 02/20/18 13:45 02/20/18 13:45 02/20/18 13:45 02/20/18 13:45 Oxygen Flow Rate (L/min) 2 Oxygen Delivery Method Nasal Cannula Weight: 97.2 kg Body Mass Index (BMI) 41.8 Finger Stick Blood Glucose 187 Intake and Output for Last 24 Hours 02/18/18 02/19/18 02/20/18 23:59 23:59 23:59 Intake Total 250 / 250 438 / 438 640 / 640 Output Total 500 / 500 5650 / 5650 Balance 250 / 250 -62 / -62 -5010 / -5010 Microbiology Past 72 Hours 02/16/18 21:26 Blood Culture - Preliminary Blood Culture (Wb) - Anticubital Left No growth in 48 hours. 02/16/18 21:50 Blood Culture - Preliminary Blood Culture (Wb) - Anticubital Left No growth in 48 hours. 02/16/18 22:30 Urine Culture - Final Urine, Catheterized Presumptive E. coli Laboratory Tests Past 24 Hrs 02/20/18 02/20/18 05:50 05:50 WBC 11.7 H RBC 3.75 L Hgb 8.3 L Hct 29.7 L MCV 79.2 L MCH 22.1 L MCHC 27.9 L RDW 18.1 H RDW Differential 48.9 H Plt Count 280 MPV 9.6 Immature Gran % (Auto) 0.700 Neut % (Auto) 79.9 H Lymph % (Auto) 10.0 L [place] % (Auto) 7.8 Eos % (Auto) 1.3 Baso % (Auto) 0.3 Absolute Neuts (auto) 9.4 H Absolute Lymphs (auto) 1.17 Total Counted Not Reportable Sodium 143 Potassium 3.2 L Chloride 102 Carbon Dioxide 34.0 H Anion Gap 7 BUN 14 Creatinine 1.05 H Estim Creat Clear Calc 33.76 Est GFR (MDRD) Af Amer 66 Est GFR (MDRD) Non-Af 54 L BUN/Creatinine Ratio 13.3 Glucose 109 H Calcium 8.9 POC Glucose 02/20/18 02/20/18 02/19/18 11:56 06:42 22:02 POC Glucose 118 H 101 129 H Home Medications: Medications to take at Discharge Docusate Sodium [Colace] 100 mg PO DAILY PRN 05/10/17 Pantoprazole Sodium [Protonix] 40 mg PO DAILY 05/10/17 Rivaroxaban [Xarelto] 15 mg PO DAILY 05/10/17 metoprolol tartrate 50 mg tablet 50 mg PO BID #180 tab 09/18/17 amiodarone 200 mg tablet 200 mg PO DAILY #90 tab 10/10/17 Duloxetine HCl 60 mg PO DAILY 10/24/17 Glucerna Shake 120 ml PO 4X/DAY liquid 10/27/17 Furosemide 40 mg PO DAILY #1 tab 12/21/17 Potassium Chloride [Klor-Con] 20 meq PO DAILY #1 packet 12/21/17 magnesium 400 mg (as magnesium oxide) tablet 400 mg PO BID #180 tab 01/22/18 Acetaminophen [Tylenol Tablet] 650 mg PO Q4H PRN PRN tablet 02/20/18 Cephalexin [Keflex] 500 mg PO Q8 #15 capsule 02/20/18 Ferrous Sulfate 325 mg PO BIDCM #1 tablet 02/20/18 Gabapentin [Neurontin] 300 mg PO BID #1 capsule 02/20/18 Nystatin Powder [Mycostatin Powder] 1 applic TOPICAL TID bottle 02/20/18 Potassium Chloride [K-Dur] 20 meq PO DAILY #1 tablet 02/20/18 Following Prescrptions Were Given to Patient: Cephalexin [Keflex] 500 mg PO Q8 #15 capsule Potassium Chloride [K-Dur] 20 meq PO DAILY #1 tablet Ferrous Sulfate 325 mg PO BIDCM #1 tablet Gabapentin [Neurontin] 300 mg PO BID #1 capsule Primary Care Physician: Octaviano Franco Chi, MD [Primary Care Provider] - Disposition: Correction facility Minutes spent on discharge:: 31 Patient Condition:: Stable Medical Necessity - Tobacco Use Smoking Status: Former smoker Meaningful Use Info Meaningful Use Diagnoses (Choose all that apply): None applicable Code Visit Inpatient E&M: 86628 Disch Hosp
--- NOTE | 2018-02-20 21:55 | DS.PCM_ITS ---
Discharge Date and Diagnosis Date of Admission: 02/16/18 Date of Discharge: 02/20/18 - Primary Discharge Diagnosis #1 severe sepsis secondary to acute cystitis from E. coli #2 cellulitis of the lower legs-presumed secondary to gram-positive bacteria #3 chronic kidney disease stage III secondary to type 2 diabetes #4 type 2 diabetes #5 paroxysmal atrial fibrillation #6 coronary artery disease-stable #7 acute cystitis secondary to E. coli #8 iron deficiency anemia-etiology unclear #9 [id number] unclear at this point, suspect possible early dementia #10 obesity #11 hypertension #12 hyperlipidemia #13 acute diastolic congestive heart failure-EF 35% on last echocardiogram 2018 - Secondary Discharge Diagnosis Chronic Problems (Last Reviewed 02/17/18 @ 00:56 by Oziel Angel MD) Cognitive impairment (Chronic) patient is confused at times Iron deficiency anemia (Chronic) etiology unknown PVD (peripheral vascular disease) (Chronic) Controlled diabetes mellitus (Chronic) Edema, lower extremity (Chronic) Presence of stent in coronary artery (Chronic) PTCA/stent to CX; PTCA/Stent PTCA/stent to prox RCA 05/06; PTCA/LILY in mid to distal RCA 08/29/12 Atherosclerotic heart disease of [place] coronary artery without angina pectoris (Chronic) PTCA/stent to CX; PTCA/Stent PTCA/stent to prox RCA 05/06; PTCA/LILY in mid to distal RCA 08/29/12; CABG x2 ARREGUIN tp LAD and SVG to OM2 01/02/11 S/P CABG (coronary artery bypass graft) (Chronic ~01/02/11) CABG x2 ARREGUIN tp LAD and SVG to OM2 01/02/11 Paroxysmal atrial fibrillation (Chronic) Hyperlipidemia (Chronic) Hypertension (Chronic) Hospital Course and Treatment Consultations 02/17/18 01:47 Consult: Onc/Wound/art critic Routine Comment: Reason for Consult:: Bilateral leg wound Operations: None Procedures: None Summary of Care Provided: The patient is a 73 year old F who was seen in the emergency room at [facility] with a chief complaint of left leg redness, and evaluation in the ER revealed her temp to be 100.4, there was significant erythema of the left leg noted, labs revealed white blood cell count of 19.6, hemoglobin was 9.4, creatinine was 1.83, lactic acid was elevated at 3.6. Urinalysis revealed +2 leukocytes and positive nitrites, chest x-ray revealed no acute process. Patient was given IV fluids, she was given IV antibiotics, she was felt to have severe sepsis and she was admitted to [place] [address]. Patient was seen in consultation by the wound care nurse, she was seen by PT and OT, and the patient's urinalysis was positive for E. coli. Patient remained moderately confused and she was felt to have possible dementia but she consented to admission to a [facility] facility for short-term care. On 02/19/18, patient became short of breath and it was noted that she had what appeared to be congestive heart failure which was believed to be diastolic congestive heart failure. Patient was given oral Lasix and her chest x-ray was repeated on 02/20/18 and showed resolution of her CHF. On 02/20/18, patient was seen and examined: On examination she appeared in good health and spirits. Vital signs as documented. Skin warm and dry and without overt rashes. Neck without JVD. Lungs clear. Heart exam notable for regular rhythm, normal sounds and absence of murmurs, rubs or gallops. Abdomen unremarkable and without evidence of organomegaly, masses, or abdominal aortic enlargement. Extremities-there is evidence of chronic edematous changes over both lower legs along with stasis changes bilaterally. Neuro: Cranial nerves II through XII are grossly intact, no focal motor deficits were noted, sensation to light touch and pinprick is intact. Psych: Patient is alert and mildly confused, she does not appear anxious or depressed On 02/20/18, patient was seen and examined and felt to be stable for discharge to a [facility] facility for further care. - Physical Exam Vital Signs Temp Pulse Resp BP Pulse Ox 98.2 F 87 16 160/74 H 96 02/20/18 13:45 02/20/18 13:45 02/20/18 13:45 02/20/18 13:45 02/20/18 13:45 Oxygen Flow Rate (L/min) 2 Oxygen Delivery Method Nasal Cannula Weight: 97.2 kg Body Mass Index (BMI) 41.8 Finger Stick Blood Glucose 187 Intake and Output for Last 24 Hours 02/18/18 02/19/18 02/20/18 23:59 23:59 23:59 Intake Total 250 / 250 438 / 438 640 / 640 Output Total 500 / 500 5650 / 5650 Balance 250 / 250 -62 / -62 -5010 / -5010 Microbiology Past 72 Hours 02/16/18 21:26 Blood Culture - Preliminary Blood Culture (Wb) - Anticubital Left No growth in 48 hours. 02/16/18 21:50 Blood Culture - Preliminary Blood Culture (Wb) - Anticubital Left No growth in 48 hours. 02/16/18 22:30 Urine Culture - Final Urine, Catheterized Presumptive E. coli Laboratory Tests Past 24 Hrs 02/20/18 02/20/18 05:50 05:50 WBC 11.7 H RBC 3.75 L Hgb 8.3 L Hct 29.7 L MCV 79.2 L MCH 22.1 L MCHC 27.9 L RDW 18.1 H RDW Differential 48.9 H Plt Count 280 MPV 9.6 Immature Gran % (Auto) 0.700 Neut % (Auto) 79.9 H Lymph % (Auto) 10.0 L [place] % (Auto) 7.8 Eos % (Auto) 1.3 Baso % (Auto) 0.3 Absolute Neuts (auto) 9.4 H Absolute Lymphs (auto) 1.17 Total Counted Not Reportable Sodium 143 Potassium 3.2 L Chloride 102 Carbon Dioxide 34.0 H Anion Gap 7 BUN 14 Creatinine 1.05 H Estim Creat Clear Calc 33.76 Est GFR (MDRD) Af Amer 66 Est GFR (MDRD) Non-Af 54 L BUN/Creatinine Ratio 13.3 Glucose 109 H Calcium 8.9 POC Glucose 02/20/18 02/20/18 02/19/18 11:56 06:42 22:02 POC Glucose 118 H 101 129 H Home Medications: Medications to take at Discharge Docusate Sodium [Colace] 100 mg PO DAILY PRN 05/10/17 Pantoprazole Sodium [Protonix] 40 mg PO DAILY 05/10/17 Rivaroxaban [Xarelto] 15 mg PO DAILY 05/10/17 metoprolol tartrate 50 mg tablet 50 mg PO BID #180 tab 09/18/17 amiodarone 200 mg tablet 200 mg PO DAILY #90 tab 10/10/17 Duloxetine HCl 60 mg PO DAILY 10/24/17 Glucerna Shake 120 ml PO 4X/DAY liquid 10/27/17 Furosemide 40 mg PO DAILY #1 tab 12/21/17 Potassium Chloride [Klor-Con] 20 meq PO DAILY #1 packet 12/21/17 magnesium 400 mg (as magnesium oxide) tablet 400 mg PO BID #180 tab 01/22/18 Acetaminophen [Tylenol Tablet] 650 mg PO Q4H PRN PRN tablet 02/20/18 Cephalexin [Keflex] 500 mg PO Q8 #15 capsule 02/20/18 Ferrous Sulfate 325 mg PO BIDCM #1 tablet 02/20/18 Gabapentin [Neurontin] 300 mg PO BID #1 capsule 02/20/18 Nystatin Powder [Mycostatin Powder] 1 applic TOPICAL TID bottle 02/20/18 Potassium Chloride [K-Dur] 20 meq PO DAILY #1 tablet 02/20/18 Following Prescrptions Were Given to Patient: Cephalexin [Keflex] 500 mg PO Q8 #15 capsule Potassium Chloride [K-Dur] 20 meq PO DAILY #1 tablet Ferrous Sulfate 325 mg PO BIDCM #1 tablet Gabapentin [Neurontin] 300 mg PO BID #1 capsule Primary Care Physician: Octaviano Franco Chi, MD [Primary Care Provider] - Disposition: Assisted facility Minutes spent on discharge:: 31 Patient Condition:: Stable Medical Necessity - Tobacco Use Smoking Status: Former smoker Meaningful Use Info Meaningful Use Diagnoses (Choose all that apply): None applicable Code Visit Inpatient E&M: 47950 Disch Hosp
--- NOTE | 2018-02-21 09:37 | CASEMGMT ---
Social Work Note SW placed a call to [facility] and left a message with Renetta Pace informing her pt discharged to [facility] yesterday. Digna Palumbo WASTEWATER TREATMENT PLANT OPERATOR, DIRECTOR DANCE
== END 2018-02-20 14:09 | DRG 871 ==
LOC: ED 22:42 → MS3 23:36
PROVIDERS: Family Medicine; Hospitalist; Admitting Provider Hospitalist; Emergency Provider Emergency Medicine; Family Provider Family Medicine Geriatric Medicine; PCP Family Medicine Geriatric Medicine; Visit Provider Internal Medicine
DX: A41.51 Sepsis due to Escherichia coli [E. coli] (principal); I50.31 Acute diastolic (congestive) heart failure; L03.116 Cellulitis of left lower limb; N17.9 Acute kidney failure, unspecified; N30.00 Acute cystitis without hematuria; Z68.41 Body mass index [BMI] 40.0-44.9, adult; I13.0 Hypertensive heart and chronic kidney disease with heart failure and stage 1 through stage 4 chronic kidney disease, or unspecified chronic kidney disease; L03.115 Cellulitis of right lower limb; R65.20 Severe sepsis without septic shock; B96.20 Unspecified Escherichia coli [E. coli] as the cause of diseases classified elsewhere; D50.9 Iron deficiency anemia, unspecified; E66.9 Obesity, unspecified; E11.22 Type 2 diabetes mellitus with diabetic chronic kidney disease; N18.3 Chronic kidney disease, stage 3 (moderate); E78.5 Hyperlipidemia, unspecified; Z95.5 Presence of coronary angioplasty implant and graft; Z79.84 Long term (current) use of oral hypoglycemic drugs; Z79.899 Other long term (current) drug therapy; Z95.1 Presence of aortocoronary bypass graft; Z87.891 Personal history of nicotine dependence; I48.0 Paroxysmal atrial fibrillation; Z79.01 Long term (current) use of anticoagulants; B96.89 Other specified bacterial agents as the cause of diseases classified elsewhere; F03.90 Unspecified dementia, unspecified severity, without behavioral disturbance, psychotic disturbance, mood disturbance, and anxiety; E11.51 Type 2 diabetes mellitus with diabetic peripheral angiopathy without gangrene
CPT/HCPCS: 36415; 36600; 71045; 80048; 80053; 81001; 82728; 82803; 82962; 83540; 83550; 83605; 83880; 84484; 85025; 85610; 85730; 87040; 87086; 87088; 87186; 93005; 94640; 94762; 97116; 97162; 97165; 97530; 97535; 97802; 99285; J1756; J7030; J7040; P9612; A4216

== ENCOUNTER 2018-03-07 11:15 | Outpatient (RCR) | payer MEDICARE, SELFPAY ==
[2018-02-05 00:40] VITALS: BP 188/76; PULSE 69; RESP 18; TEMP 36.8
[2018-02-07 10:18] VITALS: BP 138/65; PULSE 70; RESP 22; TEMP 36.3; BMI 44.3
--- NOTE | 2018-02-07 14:33 | PN.PCM_ITS ---
(1) Ulcer of right foot with fat layer exposed Status: Inactive Current Visit: No Code(s): L97.512 - Non-pressure chronic ulcer of other part of right foot with fat layer exposed (2) Ulcer of left lower extremity with fat layer exposed Status: Inactive Current Visit: No Code(s): L97.922 - Non-pressure chronic ulcer of unspecified part of left lower leg with fat layer exposed (3) PVD (peripheral vascular disease) Status: Chronic Current Visit: No Code(s): I73.9 - Peripheral vascular disease, unspecified (4) Controlled diabetes mellitus Status: Chronic Current Visit: No Code(s): E11.9 - Type 2 diabetes mellitus without complications (5) Edema, lower extremity Status: Chronic Current Visit: No Code(s): R60.0 - Localized edema Type of Wound Chief Complaint: Left anterior lower leg ulceration that will not heal. History of Wound: This 72 year old female has significant history of diabetes and multiple sclerosis, bilateral traumatic leg wounds, and other comorbidities. She presents to office today after being referred by Dr. Franco. Per his note, the patient had finished up a prescription for keflex and is on rocephin. Patient states that she recently got a new bed. She says since she is short she had to get a stool in order to get onto her bed. She fell on the stool and got an ulcer on the left anterior leg. She says this happed close to two weeks ago and has not seen much of an improvment since. She has been dressing the ulcer site with bacitracin. She denies any purulence, malodor, redness around the ulcer. She also denies any feelings of nausea, vomiting, fever, or chills currently. Progress of Wound: Patient presents for follow up today for dorsal right foot ulcer and left lateral lower leg. She continues to try her best to keep compression to her lower extremity as instructed. She currently denies any feelings of nausea, vomiting, fever, or chills. - Physical Exam Vital Signs Temp Pulse Resp BP 97.4 F L 70 22 H 138/65 H 02/07/18 10:18 02/07/18 10:18 02/07/18 10:18 02/07/18 10:18 General: Alert, Oriented x3, Cooperative, No apparent distress Extremities: Capillary Refill Less than 3 Seconds, No Calf Tenderness - Negative Sunita and Abraham sign, Diminished Peripheral Pulses - DP and PT pulses nonpalpable due to bilateral pitting lower extremity edema, Edema - Bilateral pitting lower extremity edema Skin: Ulcer/ Wound - Ulcer to right dorsal foot and left lateral lower leg with fat layer exposed. The bases are noted to be a mixture of adherent slough, fibrin, granular tissue, as well as some slight surrounding hyperkeratotic tissue. Improvement noted each site today. There continues to be no probing to bone, no tracking, no undermining, no purulence, no malodor, no extending or surrounding cellulitis, no increase in warmth. Wound Measurements and Assessment WC - Nurse 1 - General Ulcer Measurement Start: 02/07/18 10:17 Freq: Status: Active Protocol: Activity Type Activity Date Activity User E-Sign Co-Sign Detail Recorded Client Recorded Date Recorded By Document 02/07/18 10:18 DL [id number] 02/07/18 10:29 DL 02/07/18 10:18 Wound Center Nurse 1 [Ulcer Assessment] #7 RIGHT DORSAL FOOT -Current Size (cm) - Length 0.4 -Current Size (cm) - Width 0.5 -Current Size (cm) - Depth 0.1 -Total Square Cm 0.20 -Photo Taken No -Exudate Amt None Present (0 %) -Wound Margin Flat & Intact -Granulation Amt Large (67-100%) -Granulation Quality [place] -Necrosis Amt None Present (0 %) -Structure Exposed N/A -Texture (Char-wound Skin Appearance) Localized Edema -Moisture (Char-wound Skin Appearance Dry/Scaly ) -Color (Char-wound Skin Appearance) Hemosiderin Staining Rubor -Temperature (Char-wound Skin No Abnormality Appearance) (Pt Warm) -Tenderness on Palpation (Char-wound No Skin Appearance) -Ulcer Cleansing Rinsed/ Irrigated with Saline -Foul Odor after Cleansing No -Anesthetic Used 4% Lidocaine Solution #9 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 INFERIOR -Current Size (cm) - Length 1 -Current Size (cm) - Width 2.5 -Current Size (cm) - Depth 0.1 -Total Square Cm 2.5 -Photo Taken No -Exudate Amt Small (1-33%) -Exudate Type Serosanguineous -Wound Margin Distinct, Outline Attached -Granulation Amt Small (1-33%) -Granulation Quality [place] -Necrosis Amt Large (67-100%) -Necrotic Tissue Type Adherent Slough -Structure Exposed N/A -Texture (Char-wound Skin Appearance) Localized Edema Scarring -Moisture (Char-wound Skin Appearance Dry/Scaly ) -Color (Char-wound Skin Appearance) Hemosiderin Staining Rubor -Temperature (Char-wound Skin No Abnormality Appearance) (Pt Warm) -Tenderness on Palpation (Char-wound No Skin Appearance) -Ulcer Cleansing Rinsed/ Irrigated with Saline -Foul Odor after Cleansing No -Anesthetic Used 4% Lidocaine Solution [Edema Assessment] -Right Calf (cm) 45 -Right Ankle (cm) 28.5 -Left Calf (cm) 44.5 -Left Ankle (cm) 27 WC - Nurse 2 - General Ulcer CM Notes Start: 02/07/18 10:17 Freq: Status: Active Protocol: Activity Type Activity Date Activity User E-Sign Co-Sign Detail Recorded Client Recorded Date Recorded By Document 02/07/18 11:44 DV [id number] 02/07/18 11:46 DV 02/07/18 11:44 Wound Center Nurse 2 [Procedure/Treatment] #7 RIGHT DORSAL FOOT -Time 11:45 -Correct Patient Yes -Correct Side, Site, Position Yes -Correct Procedure Yes -Procedure Performed Yes -Type of Procedure Debridement -Clinical Debridement Subcutaneous -Post Debridement Size (cm) - Length 0.5 -Post Debridement Size (cm) - Width 1.4 -Post Debridement Size (cm) - Depth 0.2 -Total Square Cm 0.70 -Wound/Ulcer Outcome Not Healed -Ulcer Cleansing Rinsed/ Irrigated with Saline -Foul Odor after Cleansing No -Bioengineered Tissue No -Bleeding Controlled with Pressure -Offloading No -Treatment Response Procedure Tolerated Well #9 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 INFERIOR -Time 11:45 -Correct Patient Yes -Correct Side, Site, Position Yes -Correct Procedure Yes -Procedure Performed Yes -Type of Procedure Debridement -Clinical Debridement Subcutaneous -Post Debridement Size (cm) - Length 2.5 -Post Debridement Size (cm) - Width 1.1 -Post Debridement Size (cm) - Depth 0.1 -Total Square Cm 2.75 -Wound/Ulcer Outcome Not Healed -Ulcer Cleansing Rinsed/ Irrigated with Saline -Foul Odor after Cleansing No -Bioengineered Tissue No -Bleeding Controlled with Pressure -Offloading No -Treatment Response Procedure Tolerated Well [See Physician Procedure note for Specifics] Pain Scale: 0-10 Numeric [Pain] -Is Patient Pain Free? Yes Musculoskeletal: Tenderness - With manipulation of ulcer sites Neurological: Sensory exam intact to light touch and pain Psych/Mental Status: Normal Affect, Appropriate Debridement Note Post-Debridement Measurements/Treatment WC - Nurse 2 - General Ulcer CM Notes Start: 02/07/18 10:17 Freq: Status: Active Protocol: Activity Type Activity Date Activity User E-Sign Co-Sign Detail Recorded Client Recorded Date Recorded By Document 02/07/18 11:44 DV [id number] 02/07/18 11:46 DV 02/07/18 11:44 Wound Center Nurse 2 #7 RIGHT DORSAL FOOT -Time 11:45 -Correct Patient Yes -Correct Side, Site, Position Yes -Correct Procedure Yes -Procedure Performed Yes -Type of Procedure Debridement -Clinical Debridement Subcutaneous -Post Debridement Size (cm) - Length 0.5 -Post Debridement Size (cm) - Width 1.4 -Post Debridement Size (cm) - Depth 0.2 -Total Square Cm 0.70 -Wound/Ulcer Outcome Not Healed -Ulcer Cleansing Rinsed/ Irrigated with Saline -Foul Odor after Cleansing No -Bioengineered Tissue No -Bleeding Controlled with Pressure -Offloading No -Treatment Response Procedure Tolerated Well #9 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 INFERIOR -Time 11:45 -Correct Patient Yes -Correct Side, Site, Position Yes -Correct Procedure Yes -Procedure Performed Yes -Type of Procedure Debridement -Clinical Debridement Subcutaneous -Post Debridement Size (cm) - Length 2.5 -Post Debridement Size (cm) - Width 1.1 -Post Debridement Size (cm) - Depth 0.1 -Total Square Cm 2.75 -Wound/Ulcer Outcome Not Healed -Ulcer Cleansing Rinsed/ Irrigated with Saline -Foul Odor after Cleansing No -Bioengineered Tissue No -Bleeding Controlled with Pressure -Offloading No -Treatment Response Procedure Tolerated Well Pain Scale: 0-10 Numeric Is Patient Pain Free? Yes Wound debrided: Right dorsal foot Laterality: Right Type of Debridement: Excisional debridement Anesthesia Used: 4% Lidocaine Solution Depth: in the subcutaneous layer Percentage of wound debrided: 100 Instrument Used: 7mm curette Tissue Removed: Adherent slough, fibrin, hyperkeratotic tissue Severity: Fat Layer Exposed Amount of bleeding with debridement: Mild Bleeding Controlled with: Pressure Patient tolerated procedure well - Additional Wound Wound debrided: Left lateral lower leg Laterality: Left Type of Debridement: Excisional debridement Anesthesia Used: 4% Lidocaine Solution Depth: in the subcutaneous layer Percentage of wound debrided: 100 Instrument Used: 7mm curette Tissue Removed: Adherent slough, fibrin, hyperkeratotic tissue Severity: Fat Layer Exposed Amount of bleeding with debridement: Mild Bleeding Controlled with: Pressure Patient tolerated procedure: Patient tolerated procedure well Assessment/Plan Assessment: Ulcer to left lower leg with fat layer exposed. DM II. Lower extremity edema Plan: Patient was again examined and evaluated today. The left lateral lower leg ulcer and right dorsal foot ulcer were debrided subcutaneously as noted in the clinical panel again today. Once the ulcers were debrided and carefully cleansed, the sites were then dressed with Aquacel Ag, followed by a dry sterile dressing along with tubigrips for compression. The dressing is to be changed in this manner daily. She will do this with the help of family friend, her son. It was again discussed the importance of keeping the compression from the toes all the way up to the knee. She has not been fully compliant with this in the past and she admits to still not taking her Lasix as prescribed by her primary care doctor. She was instrcuted on the importance of keeping pressure off of all of the ulcer sites at all times while seated. She is to keep her legs raised while seated or lying down. She says she keeps her legs elevated with her new lift chair. I again stressed the importance of compression with the patient's healing. She was instructed to wear the tubigrip and to keep her lower extremities elevated while seated. LEAS and venous doppler studies were reviewed at prior visit and patient will be referred to Dr. Adames with vascular. I recommended a high-protein diet for this patient to supplement ulcer healing. Patient was educated on all signs and symptoms of local and systemic infection, and was instructed to go to the ER immediately should she notice any. All other questions were answered to the patient's satisfaction. The patient will follow- up in clinic in 1 week to check on progress, or sooner if needed.
[2018-02-14 10:39] VITALS: BP 118/75; PULSE 78; RESP 18; TEMP 36.5; BMI 44.3
--- NOTE | 2018-02-14 13:15 | PN.PCM_ITS ---
(1) Ulcer of right foot with fat layer exposed Status: Inactive Current Visit: No Code(s): L97.512 - Non-pressure chronic ulcer of other part of right foot with fat layer exposed (2) Ulcer of left lower extremity with fat layer exposed Status: Inactive Current Visit: No Code(s): L97.922 - Non-pressure chronic ulcer of unspecified part of left lower leg with fat layer exposed (3) PVD (peripheral vascular disease) Status: Chronic Current Visit: No Code(s): I73.9 - Peripheral vascular disease, unspecified (4) Controlled diabetes mellitus Status: Chronic Current Visit: No Code(s): E11.9 - Type 2 diabetes mellitus without complications (5) Edema, lower extremity Status: Chronic Current Visit: No Code(s): R60.0 - Localized edema Type of Wound Chief Complaint: Left anterior lower leg ulceration that will not heal. History of Wound: This 72 year old female has significant history of diabetes and multiple sclerosis, bilateral traumatic leg wounds, and other comorbidities. She presents to office today after being referred by Dr. Franco. Per his note, the patient had finished up a prescription for keflex and is on rocephin. Patient states that she recently got a new bed. She says since she is short she had to get a stool in order to get onto her bed. She fell on the stool and got an ulcer on the left anterior leg. She says this happed close to two weeks ago and has not seen much of an improvment since. She has been dressing the ulcer site with bacitracin. She denies any purulence, malodor, redness around the ulcer. She also denies any feelings of nausea, vomiting, fever, or chills currently. Progress of Wound: Patient presents for follow up today for dorsal right foot ulcer and left lateral lower leg. She continues to try her best to keep compression to her lower extremity as instructed. She says her tubigrips from last visit did not fit correctly. She currently denies any feelings of nausea, vomiting, fever, or chills. - Physical Exam Vital Signs Temp Pulse Resp BP 97.7 F L 78 18 118/75 02/14/18 10:39 02/14/18 10:39 02/14/18 10:39 02/14/18 10:39 General: Alert, Oriented x3, Cooperative, No apparent distress Extremities: Capillary Refill Less than 3 Seconds, No Calf Tenderness, Diminished Peripheral Pulses - Negative Sunita and Abraham sign DP and PT pulses nonpalpable due to bilateral pitting lower extremity edema, Edema - Bilateral pitting lower extremity edema Skin: Ulcer/ Wound - Ulcer to right dorsal foot and left lateral lower leg with fat layer exposed. The bases are noted to be a mixture of adherent slough, fibrin, granular tissue, as well as some slight surrounding hyperkeratotic tissue. There continues to be no probing to bone, no tracking, no undermining, no purulence, no malodor, no extending cellulitis, and no significant increase in warmth. Wound Measurements and Assessment WC - Nurse 1 - General Ulcer Measurement Start: 02/07/18 10:17 Freq: Status: Active Protocol: Activity Type Activity Date Activity User E-Sign Co-Sign Detail Recorded Client Recorded Date Recorded By Document 02/14/18 10:39 [facility] [id number] 02/14/18 10:48 BM 02/14/18 10:39 Wound Center Nurse 1 [Ulcer Assessment] #7 RIGHT DORSAL FOOT -Combined with other wound No -Current Size (cm) - Length 0.6 -Current Size (cm) - Width 1.7 -Current Size (cm) - Depth 0.1 -Total Square Cm 1.02 -Photo Taken No -Epithelialization Small 1-33% -Tunneling No -Undermining/Tunneling No -Circular Undermining No -Exudate Amt Small -Exudate Type Serous -Wound Margin Flat & Intact -Granulation Amt Large (67-100%) -Granulation Quality Red -Slough/Fibrin No -Necrosis Amt None Present (0 %) -Structure Exposed None/Limited to Skin Breakdown -Texture (Char-wound Skin Appearance) Scarring -Moisture (Char-wound Skin Appearance Dry/Scaly ) -Color (Char-wound Skin Appearance) Assessed Ecchymosis -Temperature (Char-wound Skin No Abnormality Appearance) (Pt Warm) -Tenderness on Palpation (Char-wound No Skin Appearance) -Ulcer Cleansing Rinsed/ Irrigated with Saline -Foul Odor after Cleansing No -Anesthetic Used 5% Lidocaine Gel #9 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 INFERIOR -Combined with other wound No -Current Size (cm) - Length 1.2 -Current Size (cm) - Width 2.5 -Current Size (cm) - Depth 0.1 -Total Square Cm 3.00 -Photo Taken No -Epithelialization None Present -Tunneling No -Undermining/Tunneling No -Circular Undermining No -Exudate Amt Medium -Exudate Type Serous -Wound Margin Flat & Intact -Granulation Amt Medium (34-66%) -Granulation Quality Red -Slough/Fibrin Yes -Necrosis Amt Medium (34-66%) -Necrotic Tissue Type Adherent Slough -Texture (Char-wound Skin Appearance) Assessed Scarring -Moisture (Char-wound Skin Appearance Assessed ) Dry/Scaly -Color (Char-wound Skin Appearance) Assessed Hemosiderin Staining -Temperature (Char-wound Skin No Abnormality Appearance) (Pt Warm) -Ulcer Cleansing Rinsed/ Irrigated with Saline -Foul Odor after Cleansing No -Anesthetic Used 5% Lidocaine Gel [Edema Assessment] -Lower Limb Edema Present Yes -Right Calf (cm) 47.4 -Right Ankle (cm) 29.5 -Left Calf (cm) 47 -Left Ankle (cm) 28.3 WC - Nurse 2 - General Ulcer CM Notes Start: 02/07/18 10:17 Freq: Status: Active Protocol: Activity Type Activity Date Activity User E-Sign Co-Sign Detail Recorded Client Recorded Date Recorded By Document 02/14/18 11:31 DV [id number] 02/14/18 11:38 DV 02/14/18 11:31 Wound Center Nurse 2 [Procedure/Treatment] #7 RIGHT DORSAL FOOT -Time 11:32 -Correct Patient Yes -Correct Side, Site, Position Yes -Correct Procedure Yes -Procedure Performed Yes -Type of Procedure Debridement -Clinical Debridement Subcutaneous -Post Debridement Size (cm) - Length 0.5 -Post Debridement Size (cm) - Width 1.3 -Post Debridement Size (cm) - Depth 0.1 -Total Square Cm 0.65 -Wound/Ulcer Outcome Not Healed -Ulcer Cleansing Rinsed/ Irrigated with Saline -Foul Odor after Cleansing No -Bioengineered Tissue No -Bleeding Controlled with Pressure -Offloading No -Treatment Response Procedure Tolerated Well #9 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 INFERIOR -Time 11:31 -Correct Patient Yes -Correct Side, Site, Position Yes -Correct Procedure Yes -Procedure Performed Yes -Type of Procedure Debridement -Clinical Debridement Subcutaneous -Post Debridement Size (cm) - Length 1.0 -Post Debridement Size (cm) - Width 2.0 -Post Debridement Size (cm) - Depth 0.1 -Total Square Cm 2.00 -Wound/Ulcer Outcome Not Healed -Ulcer Cleansing Rinsed/ Irrigated with Saline -Foul Odor after Cleansing No -Bioengineered Tissue No -Bleeding Controlled with Pressure -Offloading No -Treatment Response Procedure Tolerated Well [See Physician Procedure note for Specifics] Pain Scale: 0-10 Numeric [Pain] -Is Patient Pain Free? Yes Musculoskeletal: Tenderness - With manipulation of ulcer sites Neurological: Sensory exam intact to light touch and pain Psych/Mental Status: Normal Affect, Appropriate Debridement Note Post-Debridement Measurements/Treatment WC - Nurse 2 - General Ulcer CM Notes Start: 02/07/18 10:17 Freq: Status: Active Protocol: Activity Type Activity Date Activity User E-Sign Co-Sign Detail Recorded Client Recorded Date Recorded By Document 02/07/18 11:44 DV [id number] 02/07/18 11:46 DV Document 02/14/18 11:31 DV [id number] 02/14/18 11:38 DV 02/07/18 02/14/18 11:44 11:31 Wound Center Nurse 2 #7 RIGHT DORSAL FOOT -Time 11:45 11:32 -Correct Patient Yes Yes -Correct Side, Site, Position Yes Yes -Correct Procedure Yes Yes -Procedure Performed Yes Yes -Type of Procedure Debridement Debridement -Clinical Debridement Subcutaneous Subcutaneous -Post Debridement Size (cm) - Length 0.5 0.5 -Post Debridement Size (cm) - Width 1.4 1.3 -Post Debridement Size (cm) - Depth 0.2 0.1 -Total Square Cm 0.70 0.65 -Wound/Ulcer Outcome Not Healed Not Healed -Ulcer Cleansing Rinsed/ Rinsed/ Irrigated with Irrigated with Saline Saline -Foul Odor after Cleansing No No -Bioengineered Tissue No No -Bleeding Controlled with Pressure Pressure -Offloading No No -Treatment Response Procedure Procedure Tolerated Well Tolerated Well #9 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 INFERIOR -Time 11:45 11:31 -Correct Patient Yes Yes -Correct Side, Site, Position Yes Yes -Correct Procedure Yes Yes -Procedure Performed Yes Yes -Type of Procedure Debridement Debridement -Clinical Debridement Subcutaneous Subcutaneous -Post Debridement Size (cm) - Length 2.5 1.0 -Post Debridement Size (cm) - Width 1.1 2.0 -Post Debridement Size (cm) - Depth 0.1 0.1 -Total Square Cm 2.75 2.00 -Wound/Ulcer Outcome Not Healed Not Healed -Ulcer Cleansing Rinsed/ Rinsed/ Irrigated with Irrigated with Saline Saline -Foul Odor after Cleansing No No -Bioengineered Tissue No No -Bleeding Controlled with Pressure Pressure -Offloading No No -Treatment Response Procedure Procedure Tolerated Well Tolerated Well Pain Scale: 0-10 Numeric Is Patient Pain Free? Yes Yes Wound debrided: Right dorsal foot Laterality: Right Type of Debridement: Excisional debridement Anesthesia Used: 4% Lidocaine Solution Depth: in the subcutaneous layer Percentage of wound debrided: 100 Instrument Used: 7mm curette Tissue Removed: Adherent slough, fibrin, hyperkeratotic tissue Severity: Fat Layer Exposed Amount of bleeding with debridement: Mild Bleeding Controlled with: Pressure Patient tolerated procedure well - Additional Wound Wound debrided: Left lateral lower leg Laterality: Left Type of Debridement: Excisional debridement Anesthesia Used: 4% Lidocaine Solution Depth: in the subcutaneous layer Percentage of wound debrided: 100 Instrument Used: 7mm curette Tissue Removed: Adherent slough, fibrin, hyperkeratotic tissue Severity: Fat Layer Exposed Amount of bleeding with debridement: Mild Bleeding Controlled with: Pressure Patient tolerated procedure: Patient tolerated procedure well Assessment/Plan Assessment: Ulcer to left lower leg with fat layer exposed. DM II. Lower extremity edema Plan: Patient was again examined and evaluated today. The left lateral lower leg ulcer and right dorsal foot ulcer were debrided subcutaneously as noted in the clinical panel again today. Once the ulcers were debrided and carefully cleansed, the sites were then dressed with Aquacel Ag, followed by a dry sterile dressing along with tubigrips for compression. These were assured to be proper size today. The dressing is to be changed in this manner daily. She will do this with the help of family friend, her son. It was again discussed the importance of keeping the compression from the toes all the way up to the knee. She has not been fully compliant with this in the past, and she admits to still not taking her Lasix as prescribed by her primary care doctor. She was instrcuted on the importance of keeping pressure off of all of the ulcer sites at all times while seated. She is to keep her legs raised while seated or lying down. She is to continue to keep her legs elevated with her new lift chair. I again stressed the importance of compression with the patient's healing. She was instructed to wear the tubigrip and to keep her lower extremities elevated while seated. LEAS and venous doppler studies were reviewed at prior visit and patient will be referred to Dr. Adames with vascular. I recommended a high-protein diet for this patient to supplement ulcer healing. Patient was educated on all signs and symptoms of local and systemic infection, and was instructed to go to the ER immediately should she notice any. All other questions were answered to the patient's satisfaction. The patient will follow-up in clinic in 1 week to check on progress, or sooner if needed.
[2018-03-07 11:13] VITALS: BMI 44.3
--- NOTE | 2018-03-07 11:24 | PCM.WC.PN ---
(1) Ulcer of right foot with fat layer exposed Status: Inactive Current Visit: No Code(s): L97.512 - Non-pressure chronic ulcer of other part of right foot with fat layer exposed (2) Ulcer of left lower extremity with fat layer exposed Status: Inactive Current Visit: No Code(s): L97.922 - Non-pressure chronic ulcer of unspecified part of left lower leg with fat layer exposed (3) PVD (peripheral vascular disease) Status: Chronic Current Visit: No Code(s): I73.9 - Peripheral vascular disease, unspecified (4) Controlled diabetes mellitus Status: Chronic Current Visit: No Code(s): E11.9 - Type 2 diabetes mellitus without complications (5) Edema, lower extremity Status: Chronic Current Visit: No Code(s): R60.0 - Localized edema Type of Wound Chief Complaint: Left anterior lower leg ulceration that will not heal. History of Wound: This 72 year old female has significant history of diabetes and multiple sclerosis, bilateral traumatic leg wounds, and other comorbidities. She presents to office today after being referred by Dr. Franco. Per his note, the patient had finished up a prescription for keflex and is on rocephin. Patient states that she recently got a new bed. She says since she is short she had to get a stool in order to get onto her bed. She fell on the stool and got an ulcer on the left anterior leg. She says this happed close to two weeks ago and has not seen much of an improvment since. She has been dressing the ulcer site with bacitracin. She denies any purulence, malodor, redness around the ulcer. She also denies any feelings of nausea, vomiting, fever, or chills currently. Progress of Wound: Patient presents for follow up today for dorsal right foot ulcer and left lateral lower leg. She continues to try her best to keep compression to her lower extremity as instructed. Patient is healed today. She currently denies any feelings of nausea, vomiting, fever, or chills. - Physical Exam Vital Signs Temp Pulse Resp BP 97.7 F L 78 18 118/75 02/14/18 10:39 02/14/18 10:39 02/14/18 10:39 02/14/18 10:39 General: Alert, Oriented x3, Cooperative, No apparent distress Extremities: Capillary Refill Less than 3 Seconds, No Calf Tenderness - Negative Sunita and Abraham sign, Diminished Peripheral Pulses - DP and PT pulses nonpalpable due to bilateral pitting lower extremity edema, Edema - Bilateral pitting lower extremity edema Skin: Ulcer/ Wound - Ulcer to the right foot and left lateral lower leg are healed today without any signs or symptoms of local infection appreciated. Wound Measurements and Assessment - Nurse 1 - General Ulcer Measurement Start: 02/07/18 10:17 Freq: Status: Active Protocol: Activity Type Activity Date Activity User E-Sign Co-Sign Detail Recorded Client Recorded Date Recorded By Document 03/07/18 11:13 JF [id number] 03/07/18 11:14 03/07/18 11:13 Wound Center Nurse 1 [Ulcer Assessment] #7 RIGHT DORSAL FOOT -Combined with other wound No -Current Size (cm) - Length 0 -Current Size (cm) - Width 0 -Current Size (cm) - Depth 0 -Total Square Cm 0 -Photo Taken Yes -Epithelialization Large 67-100% #9 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 INFERIOR -Combined with other wound No -Current Size (cm) - Length 0 -Current Size (cm) - Width 0 -Current Size (cm) - Depth 0 -Total Square Cm 0 -Photo Taken Yes -Epithelialization Large 67-100% [Edema Assessment] -Lower Limb Edema Present Yes -Right Calf (cm) 43.5 -Right Ankle (cm) 28.6 -Left Calf (cm) 44.7 -Left Ankle (cm) 27.7 - Nurse 2 - General Ulcer CM Notes Start: 02/07/18 10:17 Freq: Status: Active Protocol: Activity Type Activity Date Activity User E-Sign Co-Sign Detail Recorded Client Recorded Date Recorded By Document 03/07/18 11:19 JF [id number] 03/07/18 11:20 03/07/18 11:19 Wound Center Nurse 2 [Procedure/Treatment] #7 RIGHT DORSAL FOOT -Correct Patient No -Correct Side, Site, Position No -Correct Procedure No -Procedure Performed No -Wound/Ulcer Outcome Healed- Epithelialized #9 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 INFERIOR -Correct Patient No -Correct Side, Site, Position No -Correct Procedure No -Procedure Performed No -Post Debridement Size (cm) - Length 0 -Post Debridement Size (cm) - Width 0 -Post Debridement Size (cm) - Depth 0 -Total Square Cm 0 -Wound/Ulcer Outcome Healed- Epithelialized [See Physician Procedure note for Specifics] Pain Scale: 0-10 Numeric [Pain] -Is Patient Pain Free? Yes Musculoskeletal: No Tenderness to Palpation of Joints or Extremities Neurological: Sensory exam intact to light touch and pain Psych/Mental Status: Normal Affect, Appropriate Debridement Note Post-Debridement Measurements/Treatment WC - Nurse 2 - General Ulcer CM Notes Start: 02/07/18 10:17 Freq: Status: Active Protocol: Activity Type Activity Date Activity User E-Sign Co-Sign Detail Recorded Client Recorded Date Recorded By Document 02/07/18 11:44 DV [id number] 02/07/18 11:46 DV Document 02/14/18 11:31 DV [id number] 02/14/18 11:38 DV Document 03/07/18 11:19 [id number] 03/07/18 11:20 02/07/18 02/14/18 03/07/18 11:44 11:31 11:19 Wound Center Nurse 2 #7 RIGHT DORSAL FOOT -Time 11:45 11:32 -Correct Patient Yes Yes No -Correct Side, Site, Position Yes Yes No -Correct Procedure Yes Yes No -Procedure Performed Yes Yes No -Type of Procedure Debridement Debridement -Clinical Debridement Subcutaneous Subcutaneous -Post Debridement Size (cm) - Length 0.5 0.5 -Post Debridement Size (cm) - Width 1.4 1.3 -Post Debridement Size (cm) - Depth 0.2 0.1 -Total Square Cm 0.70 0.65 -Wound/Ulcer Outcome Not Healed Not Healed Healed- Epithelialized -Ulcer Cleansing Rinsed/ Rinsed/ Irrigated with Irrigated with Saline Saline -Foul Odor after Cleansing No No -Bioengineered Tissue No No -Bleeding Controlled with Pressure Pressure -Offloading No No -Treatment Response Procedure Procedure Tolerated Well Tolerated Well #9 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 INFERIOR -Time 11:45 11:31 -Correct Patient Yes Yes No -Correct Side, Site, Position Yes Yes No -Correct Procedure Yes Yes No -Procedure Performed Yes Yes No -Type of Procedure Debridement Debridement -Clinical Debridement Subcutaneous Subcutaneous -Post Debridement Size (cm) - Length 2.5 1.0 0 -Post Debridement Size (cm) - Width 1.1 2.0 0 -Post Debridement Size (cm) - Depth 0.1 0.1 0 -Total Square Cm 2.75 2.00 0 -Wound/Ulcer Outcome Not Healed Not Healed Healed- Epithelialized -Ulcer Cleansing Rinsed/ Rinsed/ Irrigated with Irrigated with Saline Saline -Foul Odor after Cleansing No No -Bioengineered Tissue No No -Bleeding Controlled with Pressure Pressure -Offloading No No -Treatment Response Procedure Procedure Tolerated Well Tolerated Well Pain Scale: 0-10 Numeric Is Patient Pain Free? Yes Yes Yes No debridement was completed today Assessment/Plan Assessment: Ulcer to left lower leg with fat layer exposed. DM II. Lower extremity edema Plan: Patient was again examined and evaluated today. Patient has missed her appointments the last two weeks due to a stay in the hospital and then being transferred to [facility]. The left lateral lower leg ulcer and right dorsal foot ulcer are healed today without any signs of infection noted. Even though she is currently healed, we again discussed the importance of keeping the compression from the toes all the way up to the knee in order to control her edema and keep her from breaking down again. She has not been fully compliant with this in the past, and she admits to still not taking her Lasix as prescribed all of the time. She is to continue to keep her legs raised while seated or lying down. She is to continue to keep her legs elevated with her new lift chair. LEAS and venous doppler studies were reviewed at prior visit and patient will be referred to Dr. Adames with vascular if needed in the future. Patient was educated on all signs and symptoms of local and systemic infection, and was instructed to go to the ER immediately should she notice any. All other questions were answered to the patient's satisfaction. The patient will follow-up in clinic in on an as needed basis at this time, but was instructed to follow up sooner if needed.
--- NOTE | 2018-03-07 11:31 | PN.PCM_ITS ---
(1) Ulcer of right foot with fat layer exposed Status: Inactive Current Visit: No Code(s): L97.512 - Non-pressure chronic ulcer of other part of right foot with fat layer exposed (2) Ulcer of left lower extremity with fat layer exposed Status: Inactive Current Visit: No Code(s): L97.922 - Non-pressure chronic ulcer of unspecified part of left lower leg with fat layer exposed (3) PVD (peripheral vascular disease) Status: Chronic Current Visit: No Code(s): I73.9 - Peripheral vascular disease, unspecified (4) Controlled diabetes mellitus Status: Chronic Current Visit: No Code(s): E11.9 - Type 2 diabetes mellitus without complications (5) Edema, lower extremity Status: Chronic Current Visit: No Code(s): R60.0 - Localized edema Type of Wound Chief Complaint: Left anterior lower leg ulceration that will not heal. History of Wound: This 72 year old female has significant history of diabetes and multiple sclerosis, bilateral traumatic leg wounds, and other comorbidities. She presents to office today after being referred by Dr. Franco. Per his note, the patient had finished up a prescription for keflex and is on rocephin. Patient states that she recently got a new bed. She says since she is short she had to get a stool in order to get onto her bed. She fell on the stool and got an ulcer on the left anterior leg. She says this happed close to two weeks ago and has not seen much of an improvment since. She has been dressing the ulcer site with bacitracin. She denies any purulence, malodor, redness around the ulcer. She also denies any feelings of nausea, vomiting, fever, or chills currently. Progress of Wound: Patient presents for follow up today for dorsal right foot ulcer and left lateral lower leg. She continues to try her best to keep compression to her lower extremity as instructed. Patient is healed today. She currently denies any feelings of nausea, vomiting, fever, or chills. - Physical Exam Vital Signs Temp Pulse Resp BP 97.7 F L 78 18 118/75 02/14/18 10:39 02/14/18 10:39 02/14/18 10:39 02/14/18 10:39 General: Alert, Oriented x3, Cooperative, No apparent distress Extremities: Capillary Refill Less than 3 Seconds, No Calf Tenderness - Negative Sunita and Abraham sign, Diminished Peripheral Pulses - DP and PT pulses nonpalpable due to bilateral pitting lower extremity edema, Edema - Bilateral pitting lower extremity edema Skin: Ulcer/ Wound - Ulcer to the right foot and left lateral lower leg are healed today without any signs or symptoms of local infection appreciated. Wound Measurements and Assessment - Nurse 1 - General Ulcer Measurement Start: 02/07/18 10:17 Freq: Status: Active Protocol: Activity Type Activity Date Activity User E-Sign Co-Sign Detail Recorded Client Recorded Date Recorded By Document 03/07/18 11:13 JF [id number] 03/07/18 11:14 03/07/18 11:13 Wound Center Nurse 1 [Ulcer Assessment] #7 RIGHT DORSAL FOOT -Combined with other wound No -Current Size (cm) - Length 0 -Current Size (cm) - Width 0 -Current Size (cm) - Depth 0 -Total Square Cm 0 -Photo Taken Yes -Epithelialization Large 67-100% #9 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 INFERIOR -Combined with other wound No -Current Size (cm) - Length 0 -Current Size (cm) - Width 0 -Current Size (cm) - Depth 0 -Total Square Cm 0 -Photo Taken Yes -Epithelialization Large 67-100% [Edema Assessment] -Lower Limb Edema Present Yes -Right Calf (cm) 43.5 -Right Ankle (cm) 28.6 -Left Calf (cm) 44.7 -Left Ankle (cm) 27.7 - Nurse 2 - General Ulcer CM Notes Start: 02/07/18 10:17 Freq: Status: Active Protocol: Activity Type Activity Date Activity User E-Sign Co-Sign Detail Recorded Client Recorded Date Recorded By Document 03/07/18 11:19 JF [id number] 03/07/18 11:20 03/07/18 11:19 Wound Center Nurse 2 [Procedure/Treatment] #7 RIGHT DORSAL FOOT -Correct Patient No -Correct Side, Site, Position No -Correct Procedure No -Procedure Performed No -Wound/Ulcer Outcome Healed- Epithelialized #9 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 INFERIOR -Correct Patient No -Correct Side, Site, Position No -Correct Procedure No -Procedure Performed No -Post Debridement Size (cm) - Length 0 -Post Debridement Size (cm) - Width 0 -Post Debridement Size (cm) - Depth 0 -Total Square Cm 0 -Wound/Ulcer Outcome Healed- Epithelialized [See Physician Procedure note for Specifics] Pain Scale: 0-10 Numeric [Pain] -Is Patient Pain Free? Yes Musculoskeletal: No Tenderness to Palpation of Joints or Extremities Neurological: Sensory exam intact to light touch and pain Psych/Mental Status: Normal Affect, Appropriate Debridement Note Post-Debridement Measurements/Treatment WC - Nurse 2 - General Ulcer CM Notes Start: 02/07/18 10:17 Freq: Status: Active Protocol: Activity Type Activity Date Activity User E-Sign Co-Sign Detail Recorded Client Recorded Date Recorded By Document 02/07/18 11:44 DV [id number] 02/07/18 11:46 DV Document 02/14/18 11:31 DV [id number] 02/14/18 11:38 DV Document 03/07/18 11:19 [id number] 03/07/18 11:20 02/07/18 02/14/18 03/07/18 11:44 11:31 11:19 Wound Center Nurse 2 #7 RIGHT DORSAL FOOT -Time 11:45 11:32 -Correct Patient Yes Yes No -Correct Side, Site, Position Yes Yes No -Correct Procedure Yes Yes No -Procedure Performed Yes Yes No -Type of Procedure Debridement Debridement -Clinical Debridement Subcutaneous Subcutaneous -Post Debridement Size (cm) - Length 0.5 0.5 -Post Debridement Size (cm) - Width 1.4 1.3 -Post Debridement Size (cm) - Depth 0.2 0.1 -Total Square Cm 0.70 0.65 -Wound/Ulcer Outcome Not Healed Not Healed Healed- Epithelialized -Ulcer Cleansing Rinsed/ Rinsed/ Irrigated with Irrigated with Saline Saline -Foul Odor after Cleansing No No -Bioengineered Tissue No No -Bleeding Controlled with Pressure Pressure -Offloading No No -Treatment Response Procedure Procedure Tolerated Well Tolerated Well #9 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 INFERIOR -Time 11:45 11:31 -Correct Patient Yes Yes No -Correct Side, Site, Position Yes Yes No -Correct Procedure Yes Yes No -Procedure Performed Yes Yes No -Type of Procedure Debridement Debridement -Clinical Debridement Subcutaneous Subcutaneous -Post Debridement Size (cm) - Length 2.5 1.0 0 -Post Debridement Size (cm) - Width 1.1 2.0 0 -Post Debridement Size (cm) - Depth 0.1 0.1 0 -Total Square Cm 2.75 2.00 0 -Wound/Ulcer Outcome Not Healed Not Healed Healed- Epithelialized -Ulcer Cleansing Rinsed/ Rinsed/ Irrigated with Irrigated with Saline Saline -Foul Odor after Cleansing No No -Bioengineered Tissue No No -Bleeding Controlled with Pressure Pressure -Offloading No No -Treatment Response Procedure Procedure Tolerated Well Tolerated Well Pain Scale: 0-10 Numeric Is Patient Pain Free? Yes Yes Yes No debridement was completed today Assessment/Plan Assessment: Ulcer to left lower leg with fat layer exposed. DM II. Lower extremity edema Plan: Patient was again examined and evaluated today. Patient has missed her appointments the last two weeks due to a stay in the hospital and then being transferred to [facility]. The left lateral lower leg ulcer and right dorsal foot ulcer are healed today without any signs of infection noted. Even though she is currently healed, we again discussed the importance of keeping the compression from the toes all the way up to the knee in order to control her edema and keep her from breaking down again. She has not been fully compliant with this in the past, and she admits to still not taking her Lasix as prescribed all of the time. She is to continue to keep her legs raised while seated or lying down. She is to continue to keep her legs elevated with her new lift chair. LEAS and venous doppler studies were reviewed at prior visit and patient will be referred to Dr. Adames with vascular if needed in the future. Patient was educated on all signs and symptoms of local and systemic infection, and was instructed to go to the ER immediately should she notice any. All other questions were answered to the patient's satisfaction. The patient will follow- up in clinic in on an as needed basis at this time, but was instructed to follow up sooner if needed.
== END 2018-03-07 23:59 ==
LOC: WC 11:15
PROVIDERS: Family Provider Family Medicine Geriatric Medicine; PCP Family Medicine Geriatric Medicine; Referring Provider Podiatrist; Visit Provider Podiatrist
DX: E11.622 Type 2 diabetes mellitus with other skin ulcer (principal); L97.822 Non-pressure chronic ulcer of other part of left lower leg with fat layer exposed; E11.22 Type 2 diabetes mellitus with diabetic chronic kidney disease; N17.9 Acute kidney failure, unspecified; R60.0 Localized edema; E11.51 Type 2 diabetes mellitus with diabetic peripheral angiopathy without gangrene; G35 Multiple sclerosis; E11.621 Type 2 diabetes mellitus with foot ulcer; L97.512 Non-pressure chronic ulcer of other part of right foot with fat layer exposed
CPT/HCPCS: 11042; 99213; G0463

== ENCOUNTER → 2018-03-14 15:40 | Outpatient (CLI) | payer MEDICARE, SELFPAY ==
[2018-03-11 14:14] VITALS: BMI 41.8
== END ==
PROVIDERS: Family Provider Family Medicine Geriatric Medicine; PCP Family Medicine Geriatric Medicine; Visit Provider Family Medicine Geriatric Medicine
DX: Z53.9 Procedure and treatment not carried out, unspecified reason (principal)

== ENCOUNTER 2018-04-04 10:30 | Outpatient (RCR) | payer MEDICARE, SELFPAY ==
[2018-03-08 01:04] VITALS: BP 118/75; PULSE 78; RESP 18; TEMP 36.5
[2018-03-11 14:14] VITALS: BMI 41.8
[2018-03-28 09:59] VITALS: BP 160/90; PULSE 69; RESP 18; TEMP 36.7; BMI 41.8
--- NOTE | 2018-03-28 10:15 | WC ---
pt has+ 3 pedal edema and le bilateral
--- NOTE | 2018-03-28 19:13 | PCM.WC.HP ---
(1) Bilateral lower extremity edema Status: Chronic Current Visit: Yes Code(s): R60.0 - Localized edema (2) Ulcer of left lower extremity with fat layer exposed Status: Acute Current Visit: Yes Code(s): L97.922 - Non-pressure chronic ulcer of unspecified part of left lower leg with fat layer exposed (3) Ulcer of right lower extremity with fat layer exposed Status: Acute Current Visit: Yes Code(s): L97.912 - Non-pressure chronic ulcer of unspecified part of right lower leg with fat layer exposed History of Present Illness Chief Complaint: Recurrent bilateral lower extremity ulceration. History of Wound: Ms. Ya is a 73-year-old who presents to the wound center due to new onset bilateral lower extremity ulcers and chronic bilateral lower extremity edema. Due to her bilateral lower extremity edema, she. Frequently presents with recurrent ulceration. Was recently seen here at the wound center. Was discharged with Tubigrip's. She states that this has not really helped with managing her lower extremity edema. She denies any significant discharge from open areas. She also denies chills, fever or otherwise feeling of unwell. Past Medical History Past Medical History: Chronic Problems (Last Reviewed 02/17/18 @ 00:56 by Oziel Angel MD) Bilateral lower extremity edema (Chronic) Cognitive impairment (Chronic) patient is confused at times Iron deficiency anemia (Chronic) etiology unknown PVD (peripheral vascular disease) (Chronic) Controlled diabetes mellitus (Chronic) Edema, lower extremity (Chronic) Presence of stent in coronary artery (Chronic) PTCA/stent to CX; PTCA/Stent PTCA/stent to prox RCA 05/06; PTCA/LILY in mid to distal RCA 08/29/12 Atherosclerotic heart disease of [place] coronary artery without angina pectoris (Chronic) PTCA/stent to CX; PTCA/Stent PTCA/stent to prox RCA 05/06; PTCA/LILY in mid to distal RCA 08/29/12; CABG x2 ARREGUIN tp LAD and SVG to OM2 01/02/11 S/P CABG (coronary artery bypass graft) (Chronic ~01/02/11) CABG x2 ARREGUIN tp LAD and SVG to OM2 01/02/11 Paroxysmal atrial fibrillation (Chronic) Hyperlipidemia (Chronic) Hypertension (Chronic) Surgical History: angioplasty, appendectomy, cholecystectomy, coronary bypass surgery, hysterectomy, tonsillectomy, - - R ankle surgery with hardware. placement of stents (cardiac or lower extremity. patient is unsure). excision upper lip carcinoma. Incision and drainage and excisional debridement infected traumatic open hematoma wound right anterior leg (90 cm2) and incision and drainage and excisional debridement infected traumatic open hematoma wound left anterior leg (72 cm2) - 12/29/14. Allergies/Adverse Reactions: Allergies ciprofloxacin [From Cipro] Allergy (Verified 03/11/18 14:24) Hives ciprofloxacin HCl [From Cipro] Allergy (Verified 03/11/18 14:24) Hives Latex, Natural Rubber Allergy (Verified 03/11/18 14:24) Rash Penicillins [PCN] Allergy (Verified 03/11/18 14:24) Hives codeine Adverse Reaction (Unknown, Verified 03/11/18 14:24) Unknown adhesive tape Adverse Reaction (Verified 03/11/18 14:24) Rash Home Medications: Ambulatory Orders Medication Instructions Recorded Docusate Sodium [Colace] 100 mg PO DAILY PRN 05/10/17 Pantoprazole Sodium [Protonix] 40 mg PO DAILY 05/10/17 Rivaroxaban [Xarelto] 15 mg PO DAILY 05/10/17 metoprolol tartrate 50 mg tablet 50 mg PO BID #180 tab 09/18/17 amiodarone 200 mg tablet 200 mg PO DAILY #90 tab 10/10/17 Duloxetine HCl 60 mg PO DAILY 10/24/17 Furosemide 40 mg PO DAILY #1 tab 12/21/17 magnesium 400 mg (as magnesium 400 mg PO BID #180 tab 01/22/18 oxide) tablet Acetaminophen [Tylenol Tablet] 650 mg PO Q4H PRN PRN tab 02/20/18 Ferrous Sulfate 325 mg PO BIDCM #1 tab 02/20/18 Gabapentin [Neurontin] 300 mg PO BID #1 cap 02/20/18 Potassium Chloride [K-Dur] 20 meq PO DAILY #1 tab 02/20/18 ammonium lactate 12 % topical cream 1 applic TOPICAL DAILY 03/11/18 bisacodyl 10 mg rectal suppository 10 mg RC DAILY PRN 03/11/18 bisacodyl 10 mg/30 mL enema 5 mg RC DAILY PRN 03/11/18 cranberry fruit concentrate 250 mg 500 mg PO DAILY tab 03/11/18 chewable tablet guaifenesin 100 mg/5 mL oral liquid 200 mg PO Q4H PRN 03/11/18 loperamide 2 mg tablet 2 mg PO Q1-4H PRN 03/11/18 magnesium hydroxide 400 mg/5 mL 5 ml PO QHS PRN 03/11/18 oral suspension nystatin 100,000 unit/gram topical 1 applic TOPICAL BID g 03/11/18 powder ondansetron HCl 4 mg tablet 4 mg PO TID-QID PRN 03/11/18 phenazopyridine 100 mg tablet 200 mg PO TID PRN tab 03/11/18 - Family History Maternal Family History: Family History (Last Reviewed 03/11/18 @ 14:25 by Yen Sanford) Father Heart disease Mother Hypertension Cancer Brother Diabetes Hypertension Heart Disease, Hypertension Paternal Family History: Family History (Last Reviewed 03/11/18 @ 14:25 by Yne Sanford) Father Heart disease Mother Hypertension Cancer Brother Diabetes Hypertension Heart Disease, Hypertension, - - skin cancer. Sibling Family History: Family History (Last Reviewed 03/11/18 @ 14:25 by Yen Sanford) Father Heart disease Mother Hypertension Cancer Brother Diabetes Hypertension Diabetes Smoking Status: Former smoker Review of Systems Constitutional: Denies: Anorexia, Chills, Fever Eyes: Denies: Blurred vision, Pain, Redness HEENT: Denies: Difficulty Swallowing Cardiovascular: Denies: Chest Pain, Chest Tightness Respiratory: Denies: Hemoptysis Gastrointestinal: Denies: Abdominal Pain, Hematemesis, Vomiting Skin: Denies: Jaundice - Physical Exam Vital Signs Temp Pulse Resp BP 98.0 F 69 18 160/90 H 03/28/18 09:59 03/28/18 09:59 03/28/18 09:59 03/28/18 09:59 General: Alert, Oriented x3, Cooperative, No apparent distress HEENT: Atraumatic, EOMI Oral: Moist Mucosa Neck: Supple Lungs: Normal air movement Abdomen: Soft, Non Tender, Obese Extremities: No cyanosis, Edema Skin: Ulcer/ Wound Wound Measurements and Assessment WC - Nurse 1 - General Ulcer Measurement Start: 03/28/18 09:58 Freq: Status: Active Protocol: Activity Type Activity Date Activity User E-Sign Co-Sign Detail Recorded Client Recorded Date Recorded By Document 03/28/18 09:59 ME [id number] 03/28/18 10:01 ME 03/28/18 09:59 Wound Center Nurse 1 [Ulcer Assessment] 13. R anterior cabrera cluster -Combined with other wound No -Current Size (cm) - Length 7.5 -Current Size (cm) - Width 2 -Current Size (cm) - Depth 0.1 -Total Square Cm 15.0 -Photo Taken Yes -Tunneling No -Undermining/Tunneling No -Circular Undermining No -Exudate Amt Small -Exudate Type Serosanguineous -Wound Margin Distinct, Outline Attached -Granulation Amt Large (67-100%) -Granulation Quality [place] -Slough/Fibrin Yes -Necrosis Amt Small (1-33%) -Necrotic Tissue Type Adherent Slough -Structure Exposed N/A -Texture (Char-wound Skin Appearance) Assessed -Moisture (Char-wound Skin Appearance Dry/Scaly ) -Color (Char-wound Skin Appearance) Assessed -Temperature (Hcar-wound Skin No Abnormality Appearance) (Pt Warm) -Tenderness on Palpation (Char-wound No Skin Appearance) -Ulcer Cleansing Rinsed/ Irrigated with Saline -Foul Odor after Cleansing No -Anesthetic Used 5% Lidocaine Gel 12. L lateral inferior LE -Combined with other wound No -Current Size (cm) - Length 0.3 -Current Size (cm) - Width 0.3 -Current Size (cm) - Depth 0.1 -Total Square Cm 0.09 -Photo Taken Yes -Tunneling No -Undermining/Tunneling No -Circular Undermining No -Exudate Amt Small -Exudate Type Serosanguineous -Wound Margin Distinct, Outline Attached -Granulation Amt Large (67-100%) -Granulation Quality [place] -Slough/Fibrin Yes -Necrosis Amt Small (1-33%) -Necrotic Tissue Type Adherent Slough -Structure Exposed N/A -Texture (Char-wound Skin Appearance) Assessed -Moisture (Char-wound Skin Appearance Dry/Scaly ) -Color (Char-wound Skin Appearance) Assessed -Temperature (Char-wound Skin No Abnormality Appearance) (Pt Warm) -Tenderness on Palpation (Char-wound No Skin Appearance) -Ulcer Cleansing Rinsed/ Irrigated with Saline -Foul Odor after Cleansing No -Anesthetic Used 5% Lidocaine Gel 11.L lateral superior LE -Combined with other wound No -Current Size (cm) - Length 0.4 -Current Size (cm) - Width 0.5 -Current Size (cm) - Depth 0.1 -Total Square Cm 0.20 -Photo Taken Yes -Tunneling No -Undermining/Tunneling No -Circular Undermining No -Exudate Amt Small -Exudate Type Serosanguineous -Wound Margin Distinct, Outline Attached -Granulation Amt Large (67-100%) -Granulation Quality [place] -Slough/Fibrin Yes -Necrosis Amt Small (1-33%) -Necrotic Tissue Type Adherent Slough -Structure Exposed N/A -Texture (Char-wound Skin Appearance) Assessed -Moisture (Char-wound Skin Appearance Dry/Scaly ) -Color (Char-wound Skin Appearance) Assessed -Temperature (Char-wound Skin No Abnormality Appearance) (Pt Warm) -Tenderness on Palpation (Char-wound No Skin Appearance) -Ulcer Cleansing Rinsed/ Irrigated with Saline -Foul Odor after Cleansing No -Anesthetic Used 5% Lidocaine Gel #7 RIGHT DORSAL FOOT -Combined with other wound No [Edema Assessment] -Lower Limb Edema Present Yes -Right Calf (cm) 44.8 -Right Ankle (cm) 30.4 -Left Calf (cm) 46 -Left Ankle (cm) 28 03/28/18 10:15 Wound Center by Kailyn Celeste pt has+ 3 pedal edema and le bilateral Initialized on 03/28/18 10:15 - END OF NOTE WC - Nurse 2 - General Ulcer CM Notes Start: 03/28/18 09:58 Freq: Status: Active Protocol: Activity Type Activity Date Activity User E-Sign Co-Sign Detail Recorded Client Recorded Date Recorded By Document 03/28/18 10:39 MW [email or web address] 03/28/18 10:45 MW 03/28/18 10:39 Wound Center Nurse 2 [Procedure/Treatment] 13. R anterior cabrera cluster -Time 10:39 -Correct Patient Yes -Correct Side, Site, Position Yes -Correct Procedure Yes -Procedure Performed Yes -Type of Procedure Debridement -Clinical Debridement Selective -Post Debridement Size (cm) - Length 2 -Post Debridement Size (cm) - Width 8 -Post Debridement Size (cm) - Depth 0.1 -Total Square Cm 16 -Wound/Ulcer Outcome Not Healed -Ulcer Cleansing Rinsed/ Irrigated with Saline -Foul Odor after Cleansing No -Bioengineered Tissue No -Bleeding Controlled with Pressure -Offloading No -Treatment Response Procedure Tolerated Well 12. L lateral inferior LE -Time 10:40 -Correct Patient Yes -Correct Side, Site, Position Yes -Correct Procedure Yes -Procedure Performed Yes -Type of Procedure Debridement -Clinical Debridement Selective -Post Debridement Size (cm) - Length 0.4 -Post Debridement Size (cm) - Width 0.2 -Post Debridement Size (cm) - Depth 0.1 -Total Square Cm 0.08 -Wound/Ulcer Outcome Not Healed -Ulcer Cleansing Rinsed/ Irrigated with Saline -Foul Odor after Cleansing No -Bioengineered Tissue No -Bleeding Controlled with Pressure -Offloading No -Treatment Response Procedure Tolerated Well 11.L lateral superior LE -Time 10:41 -Correct Patient Yes -Correct Side, Site, Position Yes -Correct Procedure Yes -Procedure Performed Yes -Type of Procedure Debridement -Clinical Debridement Selective -Post Debridement Size (cm) - Length 0.5 -Post Debridement Size (cm) - Width 0.5 -Post Debridement Size (cm) - Depth 0.1 -Total Square Cm 0.25 -Wound/Ulcer Outcome Not Healed -Ulcer Cleansing Rinsed/ Irrigated with Saline -Foul Odor after Cleansing No -Bioengineered Tissue No -Bleeding Controlled with Pressure -Offloading No -Treatment Response Procedure Tolerated Well [See Physician Procedure note for Specifics] Pain Scale: 0-10 Numeric [Pain] -Is Patient Pain Free? Yes Musculoskeletal: No Muscle Wasting Neurological: Cranial nerves II-XII grossly intact Psych/Mental Status: Normal Affect Debridement Note Post-Debridement Measurements/Treatment WC - Nurse 2 - General Ulcer CM Notes Start: 03/28/18 09:58 Freq: Status: Active Protocol: Activity Type Activity Date Activity User E-Sign Co-Sign Detail Recorded Client Recorded Date Recorded By Document 03/28/18 10:39 MW [email or web address] 03/28/18 10:45 MW 03/28/18 10:39 Wound Center Nurse 2 13. R anterior cabrera cluster -Time 10:39 -Correct Patient Yes -Correct Side, Site, Position Yes -Correct Procedure Yes -Procedure Performed Yes -Type of Procedure Debridement -Clinical Debridement Selective -Post Debridement Size (cm) - Length 2 -Post Debridement Size (cm) - Width 8 -Post Debridement Size (cm) - Depth 0.1 -Total Square Cm 16 -Wound/Ulcer Outcome Not Healed -Ulcer Cleansing Rinsed/ Irrigated with Saline -Foul Odor after Cleansing No -Bioengineered Tissue No -Bleeding Controlled with Pressure -Offloading No -Treatment Response Procedure Tolerated Well 12. L lateral inferior LE -Time 10:40 -Correct Patient Yes -Correct Side, Site, Position Yes -Correct Procedure Yes -Procedure Performed Yes -Type of Procedure Debridement -Clinical Debridement Selective -Post Debridement Size (cm) - Length 0.4 -Post Debridement Size (cm) - Width 0.2 -Post Debridement Size (cm) - Depth 0.1 -Total Square Cm 0.08 -Wound/Ulcer Outcome Not Healed -Ulcer Cleansing Rinsed/ Irrigated with Saline -Foul Odor after Cleansing No -Bioengineered Tissue No -Bleeding Controlled with Pressure -Offloading No -Treatment Response Procedure Tolerated Well 11.L lateral superior LE -Time 10:41 -Correct Patient Yes -Correct Side, Site, Position Yes -Correct Procedure Yes -Procedure Performed Yes -Type of Procedure Debridement -Clinical Debridement Selective -Post Debridement Size (cm) - Length 0.5 -Post Debridement Size (cm) - Width 0.5 -Post Debridement Size (cm) - Depth 0.1 -Total Square Cm 0.25 -Wound/Ulcer Outcome Not Healed -Ulcer Cleansing Rinsed/ Irrigated with Saline -Foul Odor after Cleansing No -Bioengineered Tissue No -Bleeding Controlled with Pressure -Offloading No -Treatment Response Procedure Tolerated Well Pain Scale: 0-10 Numeric Is Patient Pain Free? Yes Wound debrided: Right lower extremity cluster Wound Grade/Stage: Stage II Type of Debridement: Selective debridement Anesthesia Used: 4% Lidocaine Solution Depth: Down to and including healthy tissue Percentage of wound debrided: 100 Instrument Used: 3mm curette Tissue Removed: Slough and devitalized tissue Severity: Limited To Skin Breakdown Amount of bleeding with debridement: Mild Bleeding Controlled with: Pressure Patient tolerated procedure well - Additional Wound Wound debrided: Left lower extremity cluster Wound Grade/Stage: Stage II Type of Debridement: Selective debridement Anesthesia Used: 4% Lidocaine Solution Depth: Down to and including healthy tissue Percentage of wound debrided: 100 Instrument Used: 3mm curette Tissue Removed: Slough and devitalized tissue Severity: Limited To Skin Breakdown Amount of bleeding with debridement: Mild Patient tolerated procedure: Patient tolerated procedure well Assessment/Plan Active Problems (Last Reviewed 02/17/18 @ 00:56 by Oziel Angel MD) Bilateral lower extremity edema (Chronic) Ulcer of right lower extremity with fat layer exposed (Acute) Ulcer of left lower extremity with fat layer exposed (Acute) Assessment: Same as above. Plan: Debridement of both ulcers done as documented above. Procedure was well-tolerated. Due to recurrent bilateral lower extremity edema, she may need more consistent edema management. Tubigrip's not sufficient. For now, Fibracol to ulcers with Adaptic over top. Bilateral 3M wraps. We will make arrangements to get her CircAid's for long-term management. Advised to elevate lower extremities when seated in bed. Increased protein intake. Exercise as tolerated. Optimal blood sugar control. Follow-up on Sunday for a nurse visit. Follow-up with me in a week. All her questions were answered and she was advised to call with any further questions or concerns. This note was generated with [employer] dictation software. It may contain incorrect words, spelling, and punctuation that were not noted in checking the note before signing.
--- NOTE | 2018-03-28 19:18 | HP.PCM_ITS ---
(1) Bilateral lower extremity edema Status: Chronic Current Visit: Yes Code(s): R60.0 - Localized edema (2) Ulcer of left lower extremity with fat layer exposed Status: Acute Current Visit: Yes Code(s): L97.922 - Non-pressure chronic ulcer of unspecified part of left lower leg with fat layer exposed (3) Ulcer of right lower extremity with fat layer exposed Status: Acute Current Visit: Yes Code(s): L97.912 - Non-pressure chronic ulcer of unspecified part of right lower leg with fat layer exposed History of Present Illness Chief Complaint: Recurrent bilateral lower extremity ulceration. History of Wound: Ms. Ya is a 73-year-old who presents to the wound center due to new onset bilateral lower extremity ulcers and chronic bilateral lower extremity edema. Due to her bilateral lower extremity edema, she. Frequently presents with recurrent ulceration. Was recently seen here at the wound center. Was discharged with Tubigrip's. She states that this has not really helped with managing her lower extremity edema. She denies any significant discharge from open areas. She also denies chills, fever or otherwise feeling of unwell. Past Medical History Past Medical History: Chronic Problems (Last Reviewed 02/17/18 @ 00:56 by Oziel Angel MD) Bilateral lower extremity edema (Chronic) Cognitive impairment (Chronic) patient is confused at times Iron deficiency anemia (Chronic) etiology unknown PVD (peripheral vascular disease) (Chronic) Controlled diabetes mellitus (Chronic) Edema, lower extremity (Chronic) Presence of stent in coronary artery (Chronic) PTCA/stent to CX; PTCA/Stent PTCA/stent to prox RCA 05/06; PTCA/LILY in mid to distal RCA 08/29/12 Atherosclerotic heart disease of [place] coronary artery without angina pectoris (Chronic) PTCA/stent to CX; PTCA/Stent PTCA/stent to prox RCA 05/06; PTCA/LILY in mid to distal RCA 08/29/12; CABG x2 ARREGUIN tp LAD and SVG to OM2 01/02/11 S/P CABG (coronary artery bypass graft) (Chronic ~01/02/11) CABG x2 ARREGUIN tp LAD and SVG to OM2 01/02/11 Paroxysmal atrial fibrillation (Chronic) Hyperlipidemia (Chronic) Hypertension (Chronic) Surgical History: angioplasty, appendectomy, cholecystectomy, coronary bypass surgery, hysterectomy, tonsillectomy, - - R ankle surgery with hardware. placement of stents (cardiac or lower extremity. patient is unsure). excision upper lip carcinoma. Incision and drainage and excisional debridement infected traumatic open hematoma wound right anterior leg (90 cm2) and incision and drainage and excisional debridement infected traumatic open hematoma wound left anterior leg (72 cm2) - 12/29/14. Allergies/Adverse Reactions: Allergies ciprofloxacin [From Cipro] Allergy (Verified 03/11/18 14:24) Hives ciprofloxacin HCl [From Cipro] Allergy (Verified 03/11/18 14:24) Hives Latex, Natural Rubber Allergy (Verified 03/11/18 14:24) Rash Penicillins [PCN] Allergy (Verified 03/11/18 14:24) Hives codeine Adverse Reaction (Unknown, Verified 03/11/18 14:24) Unknown adhesive tape Adverse Reaction (Verified 03/11/18 14:24) Rash Home Medications: Ambulatory Orders Medication Instructions Recorded Docusate Sodium [Colace] 100 mg PO DAILY PRN 05/10/17 Pantoprazole Sodium [Protonix] 40 mg PO DAILY 05/10/17 Rivaroxaban [Xarelto] 15 mg PO DAILY 05/10/17 metoprolol tartrate 50 mg tablet 50 mg PO BID #180 tab 09/18/17 amiodarone 200 mg tablet 200 mg PO DAILY #90 tab 10/10/17 Duloxetine HCl 60 mg PO DAILY 10/24/17 Furosemide 40 mg PO DAILY #1 tab 12/21/17 magnesium 400 mg (as magnesium 400 mg PO BID #180 tab 01/22/18 oxide) tablet Acetaminophen [Tylenol Tablet] 650 mg PO Q4H PRN PRN tab 02/20/18 Ferrous Sulfate 325 mg PO BIDCM #1 tab 02/20/18 Gabapentin [Neurontin] 300 mg PO BID #1 cap 02/20/18 Potassium Chloride [K-Dur] 20 meq PO DAILY #1 tab 02/20/18 ammonium lactate 12 % topical cream 1 applic TOPICAL DAILY 03/11/18 bisacodyl 10 mg rectal suppository 10 mg RC DAILY PRN 03/11/18 bisacodyl 10 mg/30 mL enema 5 mg RC DAILY PRN 03/11/18 cranberry fruit concentrate 250 mg 500 mg PO DAILY tab 03/11/18 chewable tablet guaifenesin 100 mg/5 mL oral liquid 200 mg PO Q4H PRN 03/11/18 loperamide 2 mg tablet 2 mg PO Q1-4H PRN 03/11/18 magnesium hydroxide 400 mg/5 mL 5 ml PO QHS PRN 03/11/18 oral suspension nystatin 100,000 unit/gram topical 1 applic TOPICAL BID g 03/11/18 powder ondansetron HCl 4 mg tablet 4 mg PO TID-QID PRN 03/11/18 phenazopyridine 100 mg tablet 200 mg PO TID PRN tab 03/11/18 - Family History Maternal Family History: Family History (Last Reviewed 03/11/18 @ 14:25 by Yen Sanford) Father Heart disease Mother Hypertension Cancer Brother Diabetes Hypertension Heart Disease, Hypertension Paternal Family History: Family History (Last Reviewed 03/11/18 @ 14:25 by Yen Sanford) Father Heart disease Mother Hypertension Cancer Brother Diabetes Hypertension Heart Disease, Hypertension, - - skin cancer. Sibling Family History: Family History (Last Reviewed 03/11/18 @ 14:25 by Yen Safnord) Father Heart disease Mother Hypertension Cancer Brother Diabetes Hypertension Diabetes Smoking Status: Former smoker Review of Systems Constitutional: Denies: Anorexia, Chills, Fever Eyes: Denies: Blurred vision, Pain, Redness HEENT: Denies: Difficulty Swallowing Cardiovascular: Denies: Chest Pain, Chest Tightness Respiratory: Denies: Hemoptysis Gastrointestinal: Denies: Abdominal Pain, Hematemesis, Vomiting Skin: Denies: Jaundice - Physical Exam Vital Signs Temp Pulse Resp BP 98.0 F 69 18 160/90 H 03/28/18 09:59 03/28/18 09:59 03/28/18 09:59 03/28/18 09:59 General: Alert, Oriented x3, Cooperative, No apparent distress HEENT: Atraumatic, EOMI Oral: Moist Mucosa Neck: Supple Lungs: Normal air movement Abdomen: Soft, Non Tender, Obese Extremities: No cyanosis, Edema Skin: Ulcer/ Wound Wound Measurements and Assessment WC - Nurse 1 - General Ulcer Measurement Start: 03/28/18 09:58 Freq: Status: Active Protocol: Activity Type Activity Date Activity User E-Sign Co-Sign Detail Recorded Client Recorded Date Recorded By Document 03/28/18 09:59 MO [id number] 03/28/18 10:01 MO 03/28/18 09:59 Wound Center Nurse 1 [Ulcer Assessment] 13. R anterior cabrera cluster -Combined with other wound No -Current Size (cm) - Length 7.5 -Current Size (cm) - Width 2 -Current Size (cm) - Depth 0.1 -Total Square Cm 15.0 -Photo Taken Yes -Tunneling No -Undermining/Tunneling No -Circular Undermining No -Exudate Amt Small -Exudate Type Serosanguineous -Wound Margin Distinct, Outline Attached -Granulation Amt Large (67-100%) -Granulation Quality Harper -Slough/Fibrin Yes -Necrosis Amt Small (1-33%) -Necrotic Tissue Type Adherent Slough -Structure Exposed N/A -Texture (Char-wound Skin Appearance) Assessed -Moisture (Char-wound Skin Appearance Dry/Scaly ) -Color (Char-wound Skin Appearance) Assessed -Temperature (Char-wound Skin No Abnormality Appearance) (Pt Warm) -Tenderness on Palpation (Char-wound No Skin Appearance) -Ulcer Cleansing Rinsed/ Irrigated with Saline -Foul Odor after Cleansing No -Anesthetic Used 5% Lidocaine Gel 12. L lateral inferior LE -Combined with other wound No -Current Size (cm) - Length 0.3 -Current Size (cm) - Width 0.3 -Current Size (cm) - Depth 0.1 -Total Square Cm 0.09 -Photo Taken Yes -Tunneling No -Undermining/Tunneling No -Circular Undermining No -Exudate Amt Small -Exudate Type Serosanguineous -Wound Margin Distinct, Outline Attached -Granulation Amt Large (67-100%) -Granulation Quality Harper -Slough/Fibrin Yes -Necrosis Amt Small (1-33%) -Necrotic Tissue Type Adherent Slough -Structure Exposed N/A -Texture (Char-wound Skin Appearance) Assessed -Moisture (Char-wound Skin Appearance Dry/Scaly ) -Color (Char-wound Skin Appearance) Assessed -Temperature (Char-wound Skin No Abnormality Appearance) (Pt Warm) -Tenderness on Palpation (Char-wound No Skin Appearance) -Ulcer Cleansing Rinsed/ Irrigated with Saline -Foul Odor after Cleansing No -Anesthetic Used 5% Lidocaine Gel 11.L lateral superior LE -Combined with other wound No -Current Size (cm) - Length 0.4 -Current Size (cm) - Width 0.5 -Current Size (cm) - Depth 0.1 -Total Square Cm 0.20 -Photo Taken Yes -Tunneling No -Undermining/Tunneling No -Circular Undermining No -Exudate Amt Small -Exudate Type Serosanguineous -Wound Margin Distinct, Outline Attached -Granulation Amt Large (67-100%) -Granulation Quality Harper -Slough/Fibrin Yes -Necrosis Amt Small (1-33%) -Necrotic Tissue Type Adherent Slough -Structure Exposed N/A -Texture (Char-wound Skin Appearance) Assessed -Moisture (Char-wound Skin Appearance Dry/Scaly ) -Color (Char-wound Skin Appearance) Assessed -Temperature (Char-wound Skin No Abnormality Appearance) (Pt Warm) -Tenderness on Palpation (Char-wound No Skin Appearance) -Ulcer Cleansing Rinsed/ Irrigated with Saline -Foul Odor after Cleansing No -Anesthetic Used 5% Lidocaine Gel #7 RIGHT DORSAL FOOT -Combined with other wound No [Edema Assessment] -Lower Limb Edema Present Yes -Right Calf (cm) 44.8 -Right Ankle (cm) 30.4 -Left Calf (cm) 46 -Left Ankle (cm) 28 03/28/18 10:15 Wound Center by Kailyn Celeste pt has+ 3 pedal edema and le bilateral Initialized on 03/28/18 10:15 - END OF NOTE WC - Nurse 2 - General Ulcer CM Notes Start: 03/28/18 09:58 Freq: Status: Active Protocol: Activity Type Activity Date Activity User E-Sign Co-Sign Detail Recorded Client Recorded Date Recorded By Document 03/28/18 10:39 MW [id number] 03/28/18 10:45 MW 03/28/18 10:39 Wound Center Nurse 2 [Procedure/Treatment] 13. R anterior cabrera cluster -Time 10:39 -Correct Patient Yes -Correct Side, Site, Position Yes -Correct Procedure Yes -Procedure Performed Yes -Type of Procedure Debridement -Clinical Debridement Selective -Post Debridement Size (cm) - Length 2 -Post Debridement Size (cm) - Width 8 -Post Debridement Size (cm) - Depth 0.1 -Total Square Cm 16 -Wound/Ulcer Outcome Not Healed -Ulcer Cleansing Rinsed/ Irrigated with Saline -Foul Odor after Cleansing No -Bioengineered Tissue No -Bleeding Controlled with Pressure -Offloading No -Treatment Response Procedure Tolerated Well 12. L lateral inferior LE -Time 10:40 -Correct Patient Yes -Correct Side, Site, Position Yes -Correct Procedure Yes -Procedure Performed Yes -Type of Procedure Debridement -Clinical Debridement Selective -Post Debridement Size (cm) - Length 0.4 -Post Debridement Size (cm) - Width 0.2 -Post Debridement Size (cm) - Depth 0.1 -Total Square Cm 0.08 -Wound/Ulcer Outcome Not Healed -Ulcer Cleansing Rinsed/ Irrigated with Saline -Foul Odor after Cleansing No -Bioengineered Tissue No -Bleeding Controlled with Pressure -Offloading No -Treatment Response Procedure Tolerated Well 11.L lateral superior LE -Time 10:41 -Correct Patient Yes -Correct Side, Site, Position Yes -Correct Procedure Yes -Procedure Performed Yes -Type of Procedure Debridement -Clinical Debridement Selective -Post Debridement Size (cm) - Length 0.5 -Post Debridement Size (cm) - Width 0.5 -Post Debridement Size (cm) - Depth 0.1 -Total Square Cm 0.25 -Wound/Ulcer Outcome Not Healed -Ulcer Cleansing Rinsed/ Irrigated with Saline -Foul Odor after Cleansing No -Bioengineered Tissue No -Bleeding Controlled with Pressure -Offloading No -Treatment Response Procedure Tolerated Well [See Physician Procedure note for Specifics] Pain Scale: 0-10 Numeric [Pain] -Is Patient Pain Free? Yes Musculoskeletal: No Muscle Wasting Neurological: Cranial nerves II-XII grossly intact Psych/Mental Status: Normal Affect Debridement Note Post-Debridement Measurements/Treatment WC - Nurse 2 - General Ulcer CM Notes Start: 03/28/18 09:58 Freq: Status: Active Protocol: Activity Type Activity Date Activity User E-Sign Co-Sign Detail Recorded Client Recorded Date Recorded By Document 03/28/18 10:39 MW [id number] 03/28/18 10:45 MW 03/28/18 10:39 Wound Center Nurse 2 13. R anterior cabrera cluster -Time 10:39 -Correct Patient Yes -Correct Side, Site, Position Yes -Correct Procedure Yes -Procedure Performed Yes -Type of Procedure Debridement -Clinical Debridement Selective -Post Debridement Size (cm) - Length 2 -Post Debridement Size (cm) - Width 8 -Post Debridement Size (cm) - Depth 0.1 -Total Square Cm 16 -Wound/Ulcer Outcome Not Healed -Ulcer Cleansing Rinsed/ Irrigated with Saline -Foul Odor after Cleansing No -Bioengineered Tissue No -Bleeding Controlled with Pressure -Offloading No -Treatment Response Procedure Tolerated Well 12. L lateral inferior LE -Time 10:40 -Correct Patient Yes -Correct Side, Site, Position Yes -Correct Procedure Yes -Procedure Performed Yes -Type of Procedure Debridement -Clinical Debridement Selective -Post Debridement Size (cm) - Length 0.4 -Post Debridement Size (cm) - Width 0.2 -Post Debridement Size (cm) - Depth 0.1 -Total Square Cm 0.08 -Wound/Ulcer Outcome Not Healed -Ulcer Cleansing Rinsed/ Irrigated with Saline -Foul Odor after Cleansing No -Bioengineered Tissue No -Bleeding Controlled with Pressure -Offloading No -Treatment Response Procedure Tolerated Well 11.L lateral superior LE -Time 10:41 -Correct Patient Yes -Correct Side, Site, Position Yes -Correct Procedure Yes -Procedure Performed Yes -Type of Procedure Debridement -Clinical Debridement Selective -Post Debridement Size (cm) - Length 0.5 -Post Debridement Size (cm) - Width 0.5 -Post Debridement Size (cm) - Depth 0.1 -Total Square Cm 0.25 -Wound/Ulcer Outcome Not Healed -Ulcer Cleansing Rinsed/ Irrigated with Saline -Foul Odor after Cleansing No -Bioengineered Tissue No -Bleeding Controlled with Pressure -Offloading No -Treatment Response Procedure Tolerated Well Pain Scale: 0-10 Numeric Is Patient Pain Free? Yes Wound debrided: Right lower extremity cluster Wound Grade/Stage: Stage II Type of Debridement: Selective debridement Anesthesia Used: 4% Lidocaine Solution Depth: Down to and including healthy tissue Percentage of wound debrided: 100 Instrument Used: 3mm curette Tissue Removed: Slough and devitalized tissue Severity: Limited To Skin Breakdown Amount of bleeding with debridement: Mild Bleeding Controlled with: Pressure Patient tolerated procedure well - Additional Wound Wound debrided: Left lower extremity cluster Wound Grade/Stage: Stage II Type of Debridement: Selective debridement Anesthesia Used: 4% Lidocaine Solution Depth: Down to and including healthy tissue Percentage of wound debrided: 100 Instrument Used: 3mm curette Tissue Removed: Slough and devitalized tissue Severity: Limited To Skin Breakdown Amount of bleeding with debridement: Mild Patient tolerated procedure: Patient tolerated procedure well Assessment/Plan Active Problems (Last Reviewed 02/17/18 @ 00:56 by Oziel Angel MD) Bilateral lower extremity edema (Chronic) Ulcer of right lower extremity with fat layer exposed (Acute) Ulcer of left lower extremity with fat layer exposed (Acute) Assessment: Same as above. Plan: Debridement of both ulcers done as documented above. Procedure was well- tolerated. Due to recurrent bilateral lower extremity edema, she may need more consistent edema management. Tubigrip's not sufficient. For now, Fibracol to ulcers with Adaptic over top. Bilateral 3M wraps. We will make arrangements to get her CircAid's for long-term management. Advised to elevate lower extremities when seated in bed. Increased protein intake. Exercise as tolerated. Optimal blood sugar control. Follow-up on Sunday for a nurse visit. Follow-up with me in a week. All her questions were answered and she was advised to call with any further questions or concerns. This note was generated with eduPad dictation software. It may contain incorrect words, spelling, and punctuation that were not noted in checking the note before signing.
[2018-04-01 10:59] VITALS: BP 151/82; PULSE 86; RESP 18; TEMP 36.8; BMI 41.8
[2018-04-01 13:16] LABS: Anion Gap 8 (5-15); BUN 17 mg/dL (7-18); BUN/Creat Ratio 12.8 RATIO (10-20); Calcium,Total 9.1 mg/dL (8.5-10.1); Chloride 108 mmol/L (98-107); Creatinine, Serum 1.33 mg/dL (0.55-1.02); EST Glomerular Filtration Rate 41 mL/min (>60); Est Glom Filt Rate - Afr Amer 50 mL/min (>60); Glucose 124 mg/dL (74-106); Potassium 4.6 mmol/L (3.5-5.1); Sodium Level 145 mmol/L (136-145)
[2018-04-04 10:52] VITALS: BP 195/97; PULSE 82; RESP 18; TEMP 35.7; BMI 41.8
--- NOTE | 2018-04-04 16:41 | PCM.WC.PN ---
(1) Bilateral lower extremity edema Status: Chronic Current Visit: Yes Code(s): R60.0 - Localized edema (2) Ulcer of left lower extremity with fat layer exposed Status: Acute Current Visit: Yes Code(s): L97.922 - Non-pressure chronic ulcer of unspecified part of left lower leg with fat layer exposed (3) Ulcer of right lower extremity with fat layer exposed Status: Acute Current Visit: Yes Code(s): L97.912 - Non-pressure chronic ulcer of unspecified part of right lower leg with fat layer exposed Type of Wound Chief Complaint: Recurrent bilateral lower extremity ulceration. History of Wound: Ms. Ya is a 73-year-old who presents to the wound center due to new onset bilateral lower extremity ulcers and chronic bilateral lower extremity edema. Due to her bilateral lower extremity edema, she. Frequently presents with recurrent ulceration. Was recently seen here at the wound center. Was discharged with Tubigrip's. She states that this has not really helped with managing her lower extremity edema. She denies any significant discharge from open areas. She also denies chills, fever or otherwise feeling of unwell. Progress of Wound: No new concerns at this time. Tolerated 3M wraps well. Bilateral lower extremity swelling significantly improved. - Physical Exam Vital Signs Temp Pulse Resp BP 96.3 F L 82 18 195/97 H 04/04/18 10:52 04/04/18 10:52 04/04/18 10:52 04/04/18 10:52 General: Alert, Oriented x3, Cooperative, No apparent distress HEENT: Atraumatic, Normocephalic Oral: Moist Mucosa Neck: Supple Lungs: Normal air movement Abdomen: Non Tender, Obese Extremities: No cyanosis, Edema Skin: Ulcer/ Wound Wound Measurements and Assessment WC - Nurse 1 - General Ulcer Measurement Start: 03/28/18 09:58 Freq: Status: Active Protocol: Activity Type Activity Date Activity User E-Sign Co-Sign Detail Recorded Client Recorded Date Recorded By Document 04/04/18 10:52 AN [id number] 04/04/18 11:09 AN 04/04/18 10:52 Wound Center Nurse 1 [Ulcer Assessment] 13. R anterior cabrera cluster -Current Size (cm) - Length 1.0 -Current Size (cm) - Width 6.5 -Current Size (cm) - Depth 0.1 -Total Square Cm 6.50 -Classification - Thickness Full Thickness without Exposed Support Structure -Wound Margin Flat & Intact -Granulation Amt Large (67-100%) -Granulation Quality Red -Slough/Fibrin Yes -Necrosis Amt None Present (0 %) -Structure Exposed None/Limited to Skin Breakdown -Texture (Char-wound Skin Appearance) Assessed Localized Edema Scarring -Moisture (Char-wound Skin Appearance Assessed ) -Color (Char-wound Skin Appearance) Assessed Erythema -Temperature (Char-wound Skin No Abnormality Appearance) (Pt Warm) -Tenderness on Palpation (Char-wound Yes Skin Appearance) -Foul Odor after Cleansing No -Anesthetic Used 4% Lidocaine Solution 12. L lateral inferior LE -Current Size (cm) - Length 0.1 -Current Size (cm) - Width 0.1 -Current Size (cm) - Depth 0.1 -Total Square Cm 0.01 11.L lateral superior LE -Current Size (cm) - Length 0.5 -Current Size (cm) - Width 0.3 -Current Size (cm) - Depth 0.1 -Total Square Cm 0.15 -Classification - Thickness Full Thickness without Exposed Support Structure -Exudate Amt Small -Exudate Type Serosanguineous -Wound Margin Flat & Intact -Granulation Amt Large (67-100%) -Granulation Quality Red -Slough/Fibrin No -Necrosis Amt None Present (0 %) -Structure Exposed None/Limited to Skin Breakdown -Texture (Char-wound Skin Appearance) Assessed Localized Edema -Moisture (Char-wound Skin Appearance Assessed ) -Color (Char-wound Skin Appearance) Assessed Erythema -Temperature (Char-wound Skin No Abnormality Appearance) (Pt Warm) -Tenderness on Palpation (Char-wound Yes Skin Appearance) -Foul Odor after Cleansing No -Anesthetic Used 4% Lidocaine Solution [Edema Assessment] -Right Calf (cm) 34.5 -Right Ankle (cm) 26 -Left Calf (cm) 33 -Left Ankle (cm) 25 WC - Nurse 2 - General Ulcer CM Notes Start: 03/28/18 09:58 Freq: Status: Active Protocol: Activity Type Activity Date Activity User E-Sign Co-Sign Detail Recorded Client Recorded Date Recorded By Document 04/04/18 11:33 MW [id number] 04/04/18 11:36 MW 04/04/18 11:33 Wound Center Nurse 2 [Procedure/Treatment] 13. R anterior cabrera cluster -Time 11:35 -Correct Patient Yes -Correct Side, Site, Position Yes -Correct Procedure Yes -Procedure Performed No -Post Debridement Size (cm) - Length 1.0 -Post Debridement Size (cm) - Width 6.5 -Post Debridement Size (cm) - Depth 0.1 -Total Square Cm 6.50 -Wound/Ulcer Outcome Not Healed -Ulcer Cleansing Rinsed/ Irrigated with Saline -Foul Odor after Cleansing No -Bioengineered Tissue No -Bleeding Controlled with NA -Offloading No -Treatment Response Procedure Tolerated Well 12. L lateral inferior LE -Time 11:35 -Correct Patient Yes -Correct Side, Site, Position Yes -Correct Procedure Yes -Procedure Performed No -Post Debridement Size (cm) - Length 0.1 -Post Debridement Size (cm) - Width 0.1 -Post Debridement Size (cm) - Depth 0.1 -Total Square Cm 0.01 -Wound/Ulcer Outcome Not Healed -Ulcer Cleansing Rinsed/ Irrigated with Saline -Foul Odor after Cleansing No -Bioengineered Tissue No -Bleeding Controlled with NA -Offloading No -Treatment Response Procedure Tolerated Well 11.L lateral superior LE -Time 11:35 -Correct Patient Yes -Correct Side, Site, Position Yes -Correct Procedure Yes -Procedure Performed No -Post Debridement Size (cm) - Length 0.5 -Post Debridement Size (cm) - Width 0.3 -Post Debridement Size (cm) - Depth 0.1 -Total Square Cm 0.15 -Wound/Ulcer Outcome Not Healed -Ulcer Cleansing Rinsed/ Irrigated with Saline -Foul Odor after Cleansing No -Bioengineered Tissue No -Bleeding Controlled with NA -Offloading No -Treatment Response Procedure Tolerated Well [See Physician Procedure note for Specifics] Pain Scale: 0-10 Numeric [Pain] -Is Patient Pain Free? Yes Musculoskeletal: No Muscle Wasting Neurological: Cranial nerves II-XII grossly intact Psych/Mental Status: Normal Affect Debridement Note Post-Debridement Measurements/Treatment WC - Nurse 2 - General Ulcer CM Notes Start: 03/28/18 09:58 Freq: Status: Active Protocol: Activity Type Activity Date Activity User E-Sign Co-Sign Detail Recorded Client Recorded Date Recorded By Document 03/28/18 10:39 MW [id number] 03/28/18 10:45 MW Document 04/04/18 11:33 MW [id number] 04/04/18 11:36 MW 03/28/18 04/04/18 10:39 11:33 Wound Center Nurse 2 13. R anterior cabrera cluster -Time 10:39 11:35 -Correct Patient Yes Yes -Correct Side, Site, Position Yes Yes -Correct Procedure Yes Yes -Procedure Performed Yes No -Type of Procedure Debridement -Clinical Debridement Selective -Post Debridement Size (cm) - Length 2 1.0 -Post Debridement Size (cm) - Width 8 6.5 -Post Debridement Size (cm) - Depth 0.1 0.1 -Total Square Cm 16 6.50 -Wound/Ulcer Outcome Not Healed Not Healed -Ulcer Cleansing Rinsed/ Rinsed/ Irrigated with Irrigated with Saline Saline -Foul Odor after Cleansing No No -Bioengineered Tissue No No -Bleeding Controlled with Pressure NA -Offloading No No -Treatment Response Procedure Procedure Tolerated Well Tolerated Well 12. L lateral inferior LE -Time 10:40 11:35 -Correct Patient Yes Yes -Correct Side, Site, Position Yes Yes -Correct Procedure Yes Yes -Procedure Performed Yes No -Type of Procedure Debridement -Clinical Debridement Selective -Post Debridement Size (cm) - Length 0.4 0.1 -Post Debridement Size (cm) - Width 0.2 0.1 -Post Debridement Size (cm) - Depth 0.1 0.1 -Total Square Cm 0.08 0.01 -Wound/Ulcer Outcome Not Healed Not Healed -Ulcer Cleansing Rinsed/ Rinsed/ Irrigated with Irrigated with Saline Saline -Foul Odor after Cleansing No No -Bioengineered Tissue No No -Bleeding Controlled with Pressure NA -Offloading No No -Treatment Response Procedure Procedure Tolerated Well Tolerated Well 11.L lateral superior LE -Time 10:41 11:35 -Correct Patient Yes Yes -Correct Side, Site, Position Yes Yes -Correct Procedure Yes Yes -Procedure Performed Yes No -Type of Procedure Debridement -Clinical Debridement Selective -Post Debridement Size (cm) - Length 0.5 0.5 -Post Debridement Size (cm) - Width 0.5 0.3 -Post Debridement Size (cm) - Depth 0.1 0.1 -Total Square Cm 0.25 0.15 -Wound/Ulcer Outcome Not Healed Not Healed -Ulcer Cleansing Rinsed/ Rinsed/ Irrigated with Irrigated with Saline Saline -Foul Odor after Cleansing No No -Bioengineered Tissue No No -Bleeding Controlled with Pressure NA -Offloading No No -Treatment Response Procedure Procedure Tolerated Well Tolerated Well Pain Scale: 0-10 Numeric Is Patient Pain Free? Yes Yes No debridement was completed today - Very superficial. Assessment/Plan Active Problems (Last Reviewed 02/17/18 @ 00:56 by Oziel Angel MD) Bilateral lower extremity edema (Chronic) Ulcer of right lower extremity with fat layer exposed (Acute) Ulcer of left lower extremity with fat layer exposed (Acute) Assessment: Same as above. Plan: No debridement completed today. Ulcerations very superficial. Continue Fibracol and Adaptic. Measurements taken for CircAid. For now continue 3M wraps. May change every third day by home health. Advised to elevate lower extremities when seated in bed. Increased protein intake. Exercise as tolerated. Optimal blood sugar control. Follow-up with me in a week. All her questions were answered and she was advised to call with any further questions or concerns. This note was generated with [employer] dictation software. It may contain incorrect words, spelling, and punctuation that were not noted in checking the note before signing.
--- NOTE | 2018-04-04 16:44 | PN.PCM_ITS ---
(1) Bilateral lower extremity edema Status: Chronic Current Visit: Yes Code(s): R60.0 - Localized edema (2) Ulcer of left lower extremity with fat layer exposed Status: Acute Current Visit: Yes Code(s): L97.922 - Non-pressure chronic ulcer of unspecified part of left lower leg with fat layer exposed (3) Ulcer of right lower extremity with fat layer exposed Status: Acute Current Visit: Yes Code(s): L97.912 - Non-pressure chronic ulcer of unspecified part of right lower leg with fat layer exposed Type of Wound Chief Complaint: Recurrent bilateral lower extremity ulceration. History of Wound: Ms. Ya is a 73-year-old who presents to the wound center due to new onset bilateral lower extremity ulcers and chronic bilateral lower extremity edema. Due to her bilateral lower extremity edema, she. Frequently presents with recurrent ulceration. Was recently seen here at the wound center. Was discharged with Tubigrip's. She states that this has not really helped with managing her lower extremity edema. She denies any significant discharge from open areas. She also denies chills, fever or otherwise feeling of unwell. Progress of Wound: No new concerns at this time. Tolerated 3M wraps well. Bi lateral lower extremity swelling significantly improved. - Physical Exam Vital Signs Temp Pulse Resp BP 96.3 F L 82 18 195/97 H 04/04/18 10:52 04/04/18 10:52 04/04/18 10:52 04/04/18 10:52 General: Alert, Oriented x3, Cooperative, No apparent distress HEENT: Atraumatic, Normocephalic Oral: Moist Mucosa Neck: Supple Lungs: Normal air movement Abdomen: Non Tender, Obese Extremities: No cyanosis, Edema Skin: Ulcer/ Wound Wound Measurements and Assessment WC - Nurse 1 - General Ulcer Measurement Start: 03/28/18 09:58 Freq: Status: Active Protocol: Activity Type Activity Date Activity User E-Sign Co-Sign Detail Recorded Client Recorded Date Recorded By Document 04/04/18 10:52 [id number] 04/04/18 11:09 AN 04/04/18 10:52 Wound Center Nurse 1 [Ulcer Assessment] 13. R anterior cabrera cluster -Current Size (cm) - Length 1.0 -Current Size (cm) - Width 6.5 -Current Size (cm) - Depth 0.1 -Total Square Cm 6.50 -Classification - Thickness Full Thickness without Exposed Support Structure -Wound Margin Flat & Intact -Granulation Amt Large (67-100%) -Granulation Quality Red -Slough/Fibrin Yes -Necrosis Amt None Present (0 %) -Structure Exposed None/Limited to Skin Breakdown -Texture (Char-wound Skin Appearance) Assessed Localized Edema Scarring -Moisture (Char-wound Skin Appearance Assessed ) -Color (Char-wound Skin Appearance) Assessed Erythema -Temperature (Char-wound Skin No Abnormality Appearance) (Pt Warm) -Tenderness on Palpation (Char-wound Yes Skin Appearance) -Foul Odor after Cleansing No -Anesthetic Used 4% Lidocaine Solution 12. L lateral inferior LE -Current Size (cm) - Length 0.1 -Current Size (cm) - Width 0.1 -Current Size (cm) - Depth 0.1 -Total Square Cm 0.01 11.L lateral superior LE -Current Size (cm) - Length 0.5 -Current Size (cm) - Width 0.3 -Current Size (cm) - Depth 0.1 -Total Square Cm 0.15 -Classification - Thickness Full Thickness without Exposed Support Structure -Exudate Amt Small -Exudate Type Serosanguineous -Wound Margin Flat & Intact -Granulation Amt Large (67-100%) -Granulation Quality Red -Slough/Fibrin No -Necrosis Amt None Present (0 %) -Structure Exposed None/Limited to Skin Breakdown -Texture (Char-wound Skin Appearance) Assessed Localized Edema -Moisture (Chra-wound Skin Appearance Assessed ) -Color (Char-wound Skin Appearance) Assessed Erythema -Temperature (Chra-wound Skin No Abnormality Appearance) (Pt Warm) -Tenderness on Palpation (Char-wound Yes Skin Appearance) -Foul Odor after Cleansing No -Anesthetic Used 4% Lidocaine Solution [Edema Assessment] -Right Calf (cm) 34.5 -Right Ankle (cm) 26 -Left Calf (cm) 33 -Left Ankle (cm) 25 WC - Nurse 2 - General Ulcer CM Notes Start: 03/28/18 09:58 Freq: Status: Active Protocol: Activity Type Activity Date Activity User E-Sign Co-Sign Detail Recorded Client Recorded Date Recorded By Document 04/04/18 11:33 MW [id number] 04/04/18 11:36 MW 04/04/18 11:33 Wound Center Nurse 2 [Procedure/Treatment] 13. R anterior cabrera cluster -Time 11:35 -Correct Patient Yes -Correct Side, Site, Position Yes -Correct Procedure Yes -Procedure Performed No -Post Debridement Size (cm) - Length 1.0 -Post Debridement Size (cm) - Width 6.5 -Post Debridement Size (cm) - Depth 0.1 -Total Square Cm 6.50 -Wound/Ulcer Outcome Not Healed -Ulcer Cleansing Rinsed/ Irrigated with Saline -Foul Odor after Cleansing No -Bioengineered Tissue No -Bleeding Controlled with NA -Offloading No -Treatment Response Procedure Tolerated Well 12. L lateral inferior LE -Time 11:35 -Correct Patient Yes -Correct Side, Site, Position Yes -Correct Procedure Yes -Procedure Performed No -Post Debridement Size (cm) - Length 0.1 -Post Debridement Size (cm) - Width 0.1 -Post Debridement Size (cm) - Depth 0.1 -Total Square Cm 0.01 -Wound/Ulcer Outcome Not Healed -Ulcer Cleansing Rinsed/ Irrigated with Saline -Foul Odor after Cleansing No -Bioengineered Tissue No -Bleeding Controlled with NA -Offloading No -Treatment Response Procedure Tolerated Well 11.L lateral superior LE -Time 11:35 -Correct Patient Yes -Correct Side, Site, Position Yes -Correct Procedure Yes -Procedure Performed No -Post Debridement Size (cm) - Length 0.5 -Post Debridement Size (cm) - Width 0.3 -Post Debridement Size (cm) - Depth 0.1 -Total Square Cm 0.15 -Wound/Ulcer Outcome Not Healed -Ulcer Cleansing Rinsed/ Irrigated with Saline -Foul Odor after Cleansing No -Bioengineered Tissue No -Bleeding Controlled with NA -Offloading No -Treatment Response Procedure Tolerated Well [See Physician Procedure note for Specifics] Pain Scale: 0-10 Numeric [Pain] -Is Patient Pain Free? Yes Musculoskeletal: No Muscle Wasting Neurological: Cranial nerves II-XII grossly intact Psych/Mental Status: Normal Affect Debridement Note Post-Debridement Measurements/Treatment WC - Nurse 2 - General Ulcer CM Notes Start: 03/28/18 09:58 Freq: Status: Active Protocol: Activity Type Activity Date Activity User E-Sign Co-Sign Detail Recorded Client Recorded Date Recorded By Document 03/28/18 10:39 MW [id number] 03/28/18 10:45 MW Document 04/04/18 11:33 MW [id number] 04/04/18 11:36 MW 03/28/18 04/04/18 10:39 11:33 Wound Center Nurse 2 13. R anterior cabrera cluster -Time 10:39 11:35 -Correct Patient Yes Yes -Correct Side, Site, Position Yes Yes -Correct Procedure Yes Yes -Procedure Performed Yes No -Type of Procedure Debridement -Clinical Debridement Selective -Post Debridement Size (cm) - Length 2 1.0 -Post Debridement Size (cm) - Width 8 6.5 -Post Debridement Size (cm) - Depth 0.1 0.1 -Total Square Cm 16 6.50 -Wound/Ulcer Outcome Not Healed Not Healed -Ulcer Cleansing Rinsed/ Rinsed/ Irrigated with Irrigated with Saline Saline -Foul Odor after Cleansing No No -Bioengineered Tissue No No -Bleeding Controlled with Pressure NA -Offloading No No -Treatment Response Procedure Procedure Tolerated Well Tolerated Well 12. L lateral inferior LE -Time 10:40 11:35 -Correct Patient Yes Yes -Correct Side, Site, Position Yes Yes -Correct Procedure Yes Yes -Procedure Performed Yes No -Type of Procedure Debridement -Clinical Debridement Selective -Post Debridement Size (cm) - Length 0.4 0.1 -Post Debridement Size (cm) - Width 0.2 0.1 -Post Debridement Size (cm) - Depth 0.1 0.1 -Total Square Cm 0.08 0.01 -Wound/Ulcer Outcome Not Healed Not Healed -Ulcer Cleansing Rinsed/ Rinsed/ Irrigated with Irrigated with Saline Saline -Foul Odor after Cleansing No No -Bioengineered Tissue No No -Bleeding Controlled with Pressure NA -Offloading No No -Treatment Response Procedure Procedure Tolerated Well Tolerated Well 11.L lateral superior LE -Time 10:41 11:35 -Correct Patient Yes Yes -Correct Side, Site, Position Yes Yes -Correct Procedure Yes Yes -Procedure Performed Yes No -Type of Procedure Debridement -Clinical Debridement Selective -Post Debridement Size (cm) - Length 0.5 0.5 -Post Debridement Size (cm) - Width 0.5 0.3 -Post Debridement Size (cm) - Depth 0.1 0.1 -Total Square Cm 0.25 0.15 -Wound/Ulcer Outcome Not Healed Not Healed -Ulcer Cleansing Rinsed/ Rinsed/ Irrigated with Irrigated with Saline Saline -Foul Odor after Cleansing No No -Bioengineered Tissue No No -Bleeding Controlled with Pressure NA -Offloading No No -Treatment Response Procedure Procedure Tolerated Well Tolerated Well Pain Scale: 0-10 Numeric Is Patient Pain Free? Yes Yes No debridement was completed today - Very superficial. Assessment/Plan Active Problems (Last Reviewed 02/17/18 @ 00:56 by Oziel Angel MD) Bilateral lower extremity edema (Chronic) Ulcer of right lower extremity with fat layer exposed (Acute) Ulcer of left lower extremity with fat layer exposed (Acute) Assessment: Same as above. Plan: No debridement completed today. Ulcerations very superficial. Continue Fibracol and Adaptic. Measurements taken for CircAid. For now continue 3M wraps. May change every third day by home health. Advised to elevate lower extremities when seated in bed. Increased protein intake. Exercise as tolerated. Optimal blood sugar control. Follow-up with me in a week. All her questions were answered and she was advised to call with any further questions or concerns. This note was generated with [employer] dictation software. It may contain incorrect words, spelling, and punctuation that were not noted in checking the note before signing.
== END 2018-04-04 23:59 ==
LOC: WC 10:30
PROVIDERS: Family Provider Family Medicine Geriatric Medicine; PCP Family Medicine Geriatric Medicine; Referring Provider Podiatrist; Visit Provider Internal Medicine
DX: E11.622 Type 2 diabetes mellitus with other skin ulcer (principal); R60.0 Localized edema; E11.51 Type 2 diabetes mellitus with diabetic peripheral angiopathy without gangrene; G35 Multiple sclerosis; I25.10 Atherosclerotic heart disease of native coronary artery without angina pectoris; I48.0 Paroxysmal atrial fibrillation; E78.5 Hyperlipidemia, unspecified; I10 Essential (primary) hypertension; Z95.1 Presence of aortocoronary bypass graft; Z79.899 Other long term (current) drug therapy; Z79.01 Long term (current) use of anticoagulants; Z87.891 Personal history of nicotine dependence; L97.821 Non-pressure chronic ulcer of other part of left lower leg limited to breakdown of skin; L97.811 Non-pressure chronic ulcer of other part of right lower leg limited to breakdown of skin
CPT/HCPCS: 29581; 36415; 80048; 97597; 99213; G0463

== ENCOUNTER → 2018-04-08 15:03 | Outpatient (CLI) | payer MEDICARE, SELFPAY ==
[2018-04-04 10:52] VITALS: BMI 41.8
[2018-04-08 16:27] LABS: Absolute Lymphocyte Count 1.07 X10^3/ul (0.83-4.51); Absolute Neutrophil Count 6.7 X10^3/uL (2.0-7.7); Basophil# 0.02 X10^3/uL; Basophil% 0.2 % (0-1); Eosinophil# 0.06 X10^3/uL; Eosinophils% 0.7 % (0-5); Hematocrit 38.1 % (37-47); Lymphocyte # 1.07 X10^3/ul (4.0); Lymphocyte % 12.2 % (19-41); Mean Corp Hgb Conc 28.9 g/gl (32-36); Mean Corpuscular Hgb 25.9 pg (27.0-32.0); Mean Corpuscular Volume 89.6 fL (81-99); Mean Platelet Vol. 10.6 fl (6.2-12.0); Monocyte# 0.91 X10^3/uL; Monocyte% 10.4 % (0-10); Neutrophil # 6.69 X10^3/uL (2.7-7.7); Neutrophil % 76.2 % (47-70); Platelet Count 242 K/mm3 (150-450); RBC Distribution Width CV 21.1 % (11.6-14.6); RBC Distribution Width SD 66.4 fl (35.1-43.9); Red Blood Count 4.25 M/mm3 (4.2-5.4); White Blood Count 8.8 K/mm3 (4.4-11.0)
[2018-04-08 16:33] LABS: Differential Indicated SCAN CRITERIA MET; POSITIVE COUNT NO; POSITIVE DIFFERENTIAL NO; POSITIVE MORPHOLOGY YES
[2018-04-08 16:58] LABS: Vitamin D,25 Hydroxy 17.3 ng/mL (29.95-100.01)
[2018-04-08 17:03] LABS: AST(SGOT) 29 U/L (15-37); Alanine Aminotransfer ALT/SGPT 24 U/L (13-56); Albumin, Serum 3.1 g/dL (3.2-5.0); Alkaline Phosphatase 76 U/L (45-117); Anion Gap 8 (5-15); BUN 11 mg/dL (7-18); BUN/Creat Ratio 8.3 RATIO (10-20); Calcium,Total 8.7 mg/dL (8.5-10.1); Chloride 105 mmol/L (98-107); Creatinine, Serum 1.32 mg/dL (0.55-1.02); EST Glomerular Filtration Rate 42 mL/min (>60); Est Glom Filt Rate - Afr Amer 51 mL/min (>60); Globulin 3.1 g/dL (2.2-4.2); Glucose 89 mg/dL (74-106); Potassium 3.3 mmol/L (3.5-5.1); Protein, Total 6.2 g/dL (6.4-8.2); Sodium Level 141 mmol/L (136-145)
[2018-04-08 17:06] LABS: Anisocytosis 1+; Differential Comment SCANNED
== END ==
PROVIDERS: Family Provider Family Medicine Geriatric Medicine; PCP Family Medicine Geriatric Medicine; Visit Provider Family Medicine Geriatric Medicine
DX: I10 Essential (primary) hypertension (principal)
CPT/HCPCS: 36415; 80053; 82306; 84443; 85025

== ENCOUNTER → 2018-04-08 15:45 | Outpatient (CLI) | payer MEDICARE, SELFPAY ==
[2018-04-04 10:52] VITALS: BMI 41.8
--- NOTE | 2018-04-08 15:55 | CT_ITS ---
STUDY: CT BRAIN WITHOUT CONTRAST REASON FOR EXAM: Female, 73 years old. Trauma RADIATION DOSAGE (If Supplied By Facility): CTDIvol = ( 44.99 ) mGy, DLP = ( 796.11 ) mGycm TECHNIQUE: Transaxial CT imaging of the brain was performed without administration of intravenous contrast material. Individualized dose optimization techniques were used for this CT. COMPARISON: December 16, 2017. FINDINGS: Normal soft tissue structures. Normal calvarium. Calcification of the cavernous carotids. Advanced atrophy and periventricular white matter ischemic changes. Normal basal ganglia and thalami. Normal brainstem. Normal cerebellum. There is no intracranial hemorrhage. There are no findings of an acute ischemic infarction. Postsurgical changes of the orbits Mild mucosal thickening of the maxillary sinuses. CT/Brain/Head without Contrast IMPRESSION: Atrophy and periventricular white matter ischemic changes. No evidence for acute intracranial bleed. Electronically Signed: Ryan Roman MD at 16:21 EST , Service support ,
--- NOTE | 2018-04-08 15:56 | RAD_ITS ---
STUDY: X-RAY CHEST REASON FOR EXAM: Female, 73 years old. Short of breath TECHNIQUE: PA and lateral COMPARISON: February 20, 2018 FINDINGS: There is mild prominence of the interstitial markings slightly more pronounced the mid and lower lung zones. There is no demonstrated pleural abnormality. Normal size heart. Normal mediastinum and alee. Normal visualized pulmonary arteries. Normal visualized aortic arch and descending thoracic aorta. Postop change status post median sternotomy and CABG Dorsal spine demonstrates scoliosis and degenerative change. Normal visualized ribs, clavicles, and shoulders. There is no demonstrated abnormality of the visualized soft tissue structures of the upper abdomen. No significant change since prior exam RAD/Chest PA and Lateral IMPRESSION: Mild chronic interstitial changes No acute cardiopulmonary pathology Electronically Signed: Ryan Roman MD at 17:06 EST , Service support ,
== END ==
PROVIDERS: Family Provider Family Medicine Geriatric Medicine; PCP Family Medicine Geriatric Medicine; Referring Provider Family Medicine Geriatric Medicine; Visit Provider Family Medicine Geriatric Medicine
DX: S09.90XA Unspecified injury of head, initial encounter (principal); R06.02 Shortness of breath; E11.9 Type 2 diabetes mellitus without complications; E55.9 Vitamin D deficiency, unspecified; I10 Essential (primary) hypertension
CPT/HCPCS: 36415; 70450; 71046; 80053; 82306; 84443; 85025

== ENCOUNTER 2018-04-09 09:14 | Inpatient (IN) | payer MEDICARE, SELFPAY ==
[2018-04-09] VITALS (14 sets, daily range): BP systolic 113–164; BP diastolic 49–77; PULSE 73–86; RESP 16–28; TEMP 36.7–38; O2SAT 91–100; BMI 39.0; BMI 39.1; BMI 40.0
--- NOTE | 2018-04-09 09:46 | EKG12_ITS ---
Test Reason : CONFUSION Blood Pressure : / mmHG Vent. Rate : 079 BPM Atrial Rate : 079 BPM P-R Int : 154 ms QRS Dur : 078 ms QT Int : 460 ms P-R-T Axes : -12 011 102 degrees QTc Int : 527 ms Normal sinus rhythm Nonspecific ST and T wave abnormality Abnormal ECG Confirmed by SILVIA STUART ([id number]), acquisition editor SHAHNAZ MARINA ([id number] on 04/12/2018 1:15:49 PM Referred By: Douglas Bowman Confirmed By:SILVIA STUART
--- NOTE | 2018-04-09 09:46 | RAD_ITS ---
STUDY: X-RAY CHEST REASON FOR EXAM: Female, 73 years old. Shortness of breath. Dyspnea. TECHNIQUE: Single AP portable view of the chest. COMPARISON: Comparison is made with prior study dated April 08, 2018. FINDINGS: EKG electrodes are seen. There is evidence of vascular congestion and mild degree of CHF. There is no demonstrated pleural abnormality. Sternal cerclage wires and vascular clips are present from a prior sternotomy and coronary artery bypass graft procedure (CABG). Normal mediastinum and alee. Normal visualized pulmonary arteries. There is atherosclerotic tortuosity of the aortic arch and descending thoracic aorta. Normal visualized thoracic spine. Normal visualized ribs, clavicles, and shoulders. There is no demonstrated abnormality of the visualized soft tissue structures of the upper abdomen. RAD/Chest 1 View (Portable) IMPRESSION: Vascular congestion and mild CHF. Electronically Signed: Milo Hughes, at 10:23 EST , Service support ,
[2018-04-09 10:08] LABS: International Normalized Ratio 1.5
[2018-04-09 10:09] LABS: Partial Thromboplast Time 38.1 Seconds (24.1-36.2)
[2018-04-09 10:13] LABS: Absolute Lymphocyte Count 0.98 X10^3/ul (0.83-4.51); Absolute Neutrophil Count 8.7 X10^3/uL (2.0-7.7); Basophil# 0.02 X10^3/uL; Basophil% 0.2 % (0-1); Eosinophil# 0.04 X10^3/uL; Eosinophils% 0.4 % (0-5); Hematocrit 38.9 % (37-47); Hemoglobin 11.3 g/dl (12.0-15.0); Lymphocyte # 0.98 X10^3/ul (4.0); Mean Corpuscular Hgb 25.9 pg (27.0-32.0); Mean Platelet Vol. 10.5 fl (6.2-12.0); Monocyte# 1.06 X10^3/uL; Monocyte% 9.8 % (0-10); Neutrophil # 8.73 X10^3/uL (2.7-7.7); Neutrophil % 80.4 % (47-70); Platelet Count 222 K/mm3 (150-450); RBC Distribution Width CV 20.9 % (11.6-14.6); RBC Distribution Width SD 68.4 fl (35.1-43.9); Red Blood Count 4.37 M/mm3 (4.2-5.4); White Blood Count 10.9 K/mm3 (4.4-11.0)
[2018-04-09 10:14] LABS: Differential Indicated SCAN CRITERIA MET; POSITIVE COUNT NO; POSITIVE DIFFERENTIAL NO; POSITIVE MORPHOLOGY YES
[2018-04-09 10:18] LABS: ALB/GLOB Ratio 0.9 RATIO (0.9-2.4); AST(SGOT) 29 U/L (15-37); Alanine Aminotransfer ALT/SGPT 25 U/L (13-56); Alkaline Phosphatase 74 U/L (45-117); Anion Gap 9 (5-15); BUN 17 mg/dL (7-18); BUN/Creat Ratio 11.6 RATIO (10-20); Calcium,Total 8.4 mg/dL (8.5-10.1); Chloride 104 mmol/L (98-107); Creatinine, Serum 1.47 mg/dL (0.55-1.02); EST Glomerular Filtration Rate 37 mL/min (>60); Est Glom Filt Rate - Afr Amer 45 mL/min (>60); Estimated Creatinine Clearance 24.12 ml/min; Globulin 3.5 g/dL (2.2-4.2); Glucose 164 mg/dL (74-106); Lipase 92 U/L (73-393); Potassium 3.6 mmol/L (3.5-5.1); Protein, Total 6.5 g/dL (6.4-8.2); Sodium Level 139 mmol/L (136-145)
[2018-04-09] MEDS: Ipratropium/Albuterol Sulfate 3 ML AMPUL.NEB INHALATION ×3 (10:24→23:26)
[2018-04-09 10:26] LABS: Base Excess 3 mmol/L (-2 to +2); Blood Gas Specimen Type ART; O2 Delivery Device Nasal Can; PO2 31 mmHG (75-100); SITE L Radial; SO2 58 % (95-99); Time Given 1019; Total Carbon Dioxide 29 mmol/L; pCO2 47.6 mmHg (35-45); pH 7.38 (7.35-7.45)
[2018-04-09 10:36] LABS: BNP,B-Type NATRIURETIC PEPTIDE 293.3 pg/mL (0-100)
[2018-04-09 10:39] LABS: Anisocytosis 1+; Hypochromasia 1+
[2018-04-09 10:40] LABS: Lactic Acid 1.5 mmol/L (0.4-2.0)
--- NOTE | 2018-04-09 10:46 | CPS ---
Critical value on ABG, Dr. Sidhu was notified.
[2018-04-09 12:59] LABS: Bacteria 0 SEEN /hpf (None Seen); Mucous, Urine 0 SEEN /hpf (<or=2+); Red Blood Cells-Urine 0 SEEN /hpf (0-5); Squamous Epithelial Cells - UA 0 SEEN /hpf (5-10)
[2018-04-09 13:03] LABS: Glucose, Dipstick Normal (Normal); Ketone-Dipstick Negative (Negative); Leukocyte Esterase-Dipstick 500 /ul (Negative); Nitrite-Dipstick Positive (Negative); Occult Blood-Urine 150 /ul (Negative); Protein-Dipstick 100 mg/dl (Negative); Urine Clarity Turbid (Clear); Urine Urobilinogen 8 mg/dl (Normal)
[2018-04-09 13:04] LABS: Color, Urine SEE COMMENT BELOW (Yellow); Urine Bilirubin Dipstick 6 mg/dL (Negative)
[2018-04-09 13:12] LABS: White Blood Cells >100 SEEN /hpf (0-5)
[2018-04-09] MEDS: Ceftriaxone 1 GM/50 ML BAG IV (13:26)
--- NOTE | 2018-04-09 13:38 | ED.VISSUMM ---
- ER Visit Summary Date of Service: 04/09/18 Chief Complaint: Altered mental status History of Present Illness: The patient is a 73 F presents the emergency department with an altered mental status. She is fallen 2 times this week. One point she hit her head and her hand. She was seen at primary care physician's office yesterday where she got a shot for UTI. She also had a head CT that was negative. Reportedly the patient went home and was asleep in the kitchen on a chair all night. She was found by her elderly sister this morning. She was unable to get up. Most of the family that she lives with is out of town. There is a report that there is a possible carbon monoxide exposure however fire department search the house that was not true. She has a history of diabetes hypertension coronary artery disease atrial fibrillation congestive heart failure peripheral vascular disease. She sees Dr. Franco and Dr. Luna. She is on Xarelto. She has noted dysuria as well as cough. She states she is globally weak. Physical Examination: Afebrile vital signs are stable Gen: Well-nourished well-developed morbidly obese Head: Normocephalic left periorbital contusion Eyes: Perrl EOMI ENT: TMs clear no rhinorrhea moist mucous membranes Neck: Supple no lymphadenopathy no JVD nontender CVS: Regular rate rhythm no murmurs normal S1-S2 Respiratory: Hypnic with expiratory wheeze chest nontender Abdomen: Soft nontender nondistended normal bowel sounds no masses Back: Nontender Extremity: Nontender edema Skin: Normal color no rash Neuro: Lethargic orientated ?3 CN II-XII intact normal strength sensation Psych: Normal affect normal mood Test Results: White count is normal. Lactic acid 1.5. Rating 1.47. Urinalysis there is 100 white blood cells night positive nitrates. Chest x-ray no obvious infiltrate. Emergency Department Course and Treatment: Patient received ceftriaxone. Plan is admission. Impression: 1. Urinary tract infection 2. Infectious encephalopathy This note was generated with [employer] dictation software. It may contain incorrect words, spelling, and punctuation that were not noted in review of the chart prior to signing ED Disposition - Plan for ED Patient: Disposition: Acute Care [facility]
--- NOTE | 2018-04-09 13:40 | NURSING ---
MED SURG JUSTINE UTI, INFECTIOUS ENCEPHALOPATHY
--- NOTE | 2018-04-09 13:54 | ED.RN ---
DR JAMESON MADE AWARE THAT BLOOD CULTURES WERE NOT DRAWN PRIOR TO ATB ADMINISTRATION
--- NOTE | 2018-04-09 14:40 | HP.PCM_ITS ---
Problem List (1) UTI (urinary tract infection) Status: Acute Qualifiers: Urinary tract infection type: acute cystitis Hematuria presence: without hematuria Qualified Code(s): N30.00 - Acute cystitis without hematuria (2) Metabolic encephalopathy Status: Acute History of Present Illness Date of Admission: 04/09/18 Chief Complaint: confusion. The patient is a 73 year old F who fell yesterday. Saw her primary care doctor and underwent a head CT that was negative. Patient was sent home and. At home, patient lives with her elderly sister, and patient was sitting in the dining room chair. Patient was found the following morning in the same chair and unable to get up. EMS was contacted and patient was brought into the emergency room. Patient was confused. Patient underwent a workup that showed an abnormal urinalysis with positive leuk esterase and greater than 100 white blood cells but no bacteria. ABG showed PCO2 47.6 and a PO2 of 31. Patient was wheezing patient is poor historian so much of the history is obtained through the patient's [id number] at bedside. Patient received ceftriaxone in the emergency room. Patient also has a rash in ibrcttfi-hv-mam thinks that it began before hand the patient does have known allergy to penicillin. [] Past Medical History Past Medical History (Chronic Problems): Chronic Problems (Last Reviewed 02/17/18 @ 00:56 by Oziel Angel MD) Bilateral lower extremity edema (Chronic) Cognitive impairment (Chronic) patient is confused at times Iron deficiency anemia (Chronic) etiology unknown PVD (peripheral vascular disease) (Chronic) Controlled diabetes mellitus (Chronic) Edema, lower extremity (Chronic) Presence of stent in coronary artery (Chronic) PTCA/stent to CX; PTCA/Stent PTCA/stent to prox RCA 05/06; PTCA/LILY in mid to distal RCA 08/29/12 Atherosclerotic heart disease of [place] coronary artery without angina pectoris (Chronic) PTCA/stent to CX; PTCA/Stent PTCA/stent to prox RCA 05/06; PTCA/LILY in mid to distal RCA 08/29/12; CABG x2 ARREGUIN tp LAD and SVG to OM2 01/02/11 S/P CABG (coronary artery bypass graft) (Chronic ~01/02/11) CABG x2 ARREGUIN tp LAD and SVG to OM2 01/02/11 Paroxysmal atrial fibrillation (Chronic) Hyperlipidemia (Chronic) Hypertension (Chronic) Medical History: Medical History (Last Updated 04/09/18 @ 14:40 by Douglas Bowman DO) Diastolic CHF (Acute) I50.30 Cognitive impairment (Chronic) R41.89 patient is confused at times Iron deficiency anemia (Chronic) D50.9 etiology unknown Ulcer of right lower extremity with fat layer exposed (Acute) L97.912 Ulcer of right foot with fat layer exposed (Inactive) L97.512 Ulcer of left lower extremity with fat layer exposed (Inactive) L97.922 PVD (peripheral vascular disease) (Chronic) I73.9 Ulcer of left lower extremity with fat layer exposed (Acute) L97.922 Controlled diabetes mellitus (Chronic) E11.9 Edema, lower extremity (Chronic) R60.0 Atherosclerotic heart disease of [place] coronary artery without angina pectoris (Chronic) I25.10 PTCA/stent to CX; PTCA/Stent PTCA/stent to prox RCA 05/06; PTCA/LILY in mid to distal RCA 08/29/12; CABG x2 ARREGUIN tp LAD and SVG to OM2 11 Paroxysmal atrial fibrillation (Chronic) I48.0 Hyperlipidemia (Chronic) E78.5 Hypertension (Chronic) I10 Acute cystitis N30.00 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 Cellulitis L03.90 Diabetic ulcer of both lower extremities E11.622, L97.919, L97.929 History of DVT (deep vein thrombosis) Z86.718 Multiple sclerosis G35 Severe sepsis A41.9, R65.20 Trigeminal neuralgia G50.0 Type 2 diabetes mellitus E11.9 LAURITA (obstructive sleep apnea) G47.33 Peripheral vascular disease I73.9 Venous insufficiency of both lower extremities I87.2 Cellulitis of right leg L03.115 Allergies codeine Allergy (Unknown, Verified 04/09/18 14:34) Hives ciprofloxacin [From Cipro] Allergy (Verified 04/09/18 12:44) Hives ciprofloxacin HCl [From Cipro] Allergy (Verified 04/09/18 12:44) Hives Latex, Natural Rubber Allergy (Verified 04/09/18 12:44) Rash Penicillins [PCN] Allergy (Verified 04/09/18 12:44) Hives adhesive tape Adverse Reaction (Verified 04/09/18 12:44) Rash Home Medications: Ambulatory Orders Medication Instructions Recorded Acetaminophen [Tylenol] 650 mg PO Q6H PRN 04/09/18 Amiodarone HCl 200 mg PO DAILY 04/09/18 Duloxetine HCl 60 mg PO DAILY 04/09/18 Furosemide [Lasix] 40 mg PO BIDLX 04/09/18 Gabapentin [Neurontin] 300 mg PO QHS 04/09/18 Magnesium Oxide [Mag-Ox 400] 400 mg PO BID 04/09/18 Metoprolol Tartrate [Lopressor 50 mg PO BID 04/09/18 (Beta Tommy)] Pantoprazole Sodium [Protonix] 40 mg PO DAILY 04/09/18 Phenazopyridine [Pyridium] 200 mg PO TID 04/09/18 Potassium Chloride [Klor-Con] 20 meq PO BID 04/09/18 Rivaroxaban [Xarelto] 15 mg PO DAILY 04/09/18 Surgical History: Surgical History (Last Reviewed 04/09/18 @ 14:40 by Douglas Bowman DO) Presence of stent in coronary artery (Chronic) Z95.5 PTCA/stent to CX; PTCA/Stent PTCA/stent to prox RCA 05/06; PTCA/LILY in mid to distal RCA 08/29/12 S/P CABG (coronary artery bypass graft) (Chronic) Onset Date: ~01/02/11 Z95.1 CABG x2 ARREGUIN tp LAD and SVG to OM2 01/02/11 History of cataract surgery Z98.49 History of cholecystectomy Z98.890, Z90.49 History of hernia repair Z98.890, Z87.19 History of tonsillectomy and adenoidectomy Z98.890 History of total hysterectomy Z98.890, Z90.710 Postsurgical percutaneous transluminal coronary angioplasty (PTCA) status Z98.61 PTCA/stent to CX; PTCA/Stent PTCA/stent to prox RCA 05/06; PTCA/LILY in mid to distal RCA 08/29/12 Surgical History: angioplasty, appendectomy, cholecystectomy, coronary bypass surgery, hysterectomy, tonsillectomy, - - R ankle surgery with hardware. placement of stents (cardiac or lower extremity. patient is unsure). excision upper lip carcinoma. Incision and drainage and excisional debridement infected traumatic open hematoma wound right anterior leg (90 cm2) and incision and drainage and excisional debridement infected traumatic open hematoma wound left anterior leg (72 cm2) - 12/29/14. Lives: With Family Smoking Status: Former smoker Tobacco Use: Non-smoker Alcohol: None Drugs: None - *Family History Maternal Family History: Family History (Last Reviewed 04/09/18 @ 14:40 by Douglas Bowman DO) Father Heart disease Mother Hypertension Cancer Brother Diabetes Hypertension History Items: Heart Disease, Hypertension Paternal Family History: Family History (Last Reviewed 04/09/18 @ 14:40 by Douglas Bowman DO) Father Heart disease Mother Hypertension Cancer Brother Diabetes Hypertension History Items: Heart Disease, Hypertension, - - skin cancer. Sibling Family History: Family History (Last Reviewed 04/09/18 @ 14:40 by Douglas Bowman DO) Father Heart disease Mother Hypertension Cancer Brother Diabetes Hypertension History Items: Diabetes Review of Systems Constitutional: Reports: Chills. Denies: Anorexia, Fever Eyes: Denies: Blurred vision, Double vision HEENT: Denies: Head Aches, Sinus Congestion, Sinus Drainage Cardiovascular: Reports: Edema. Denies: Chest Pain, Palpitations Respiratory: Reports: Shortness of Breath. Denies: Cough, Sputum production Gastrointestinal: Reports: Abdominal Pain. Denies: Diarrhea, Nausea Genitourinary: Reports: Incontinence. Denies: Dysuria Musculoskeletal: Denies: Joint Pain, Joint Tenderness Skin: Reports: Rash, Skin Changes Neurological: Reports: Balance problems. Denies: Blurred vision, Double vision, Change in Speech Psychiatric: Denies: Anxiety, Depression, Homicidal Ideations, Suicidal Ideations Endocrine: Denies: Change in Body Habitus, Heat/ Cold Intolerance Hematologic/ Lymphatic: Reports: Hx of blood clot. Denies: Easy Bruising, Easy Bleeding Comment: A 10 point review of systems were negative except as mentioned in the history of present illness and the other review of systems. VTE Information - Inpt Only VTE Present on Admission: No VTE Mechan Device Prophylaxis: None VTE Pharm Prophylaxis ordered?: Yes Patient Problems: Active and Suspected Problems (Last Reviewed 02/17/18 @ 00:56 by Oziel Angel MD) UTI (urinary tract infection) (Acute) Metabolic encephalopathy (Acute) - Physical Exam General: Alert, No apparent distress, - - Oriented to place. HEENT: PERRELVER EOMI - Does have nystagmus bilaterally., Normocephalic, - - Ecchymosis over left forehead. Oral: Moist Mucosa, No Gingival or Mucosal Lesions/ Ulcerations Neck: No Nodes, Thyroid Normal Size and Texture Lungs: Diminished, Wheezes Cardiovascular: Regular rate, Regular Rhythm, Normal S1, Normal S2, No murmurs Abdomen: Bowel Sounds Present, Soft, Non Tender, Non-Distended, Obese Extremities: No Calf Tenderness, Edema - Wraps in place., Did not remove. Skin: - - Macular raised rash noted on abdomen. Appears to be sparing the back and extremities and face. Musculoskeletal: No Tenderness to Palpation of Joints or Extremities, No Muscle Wasting Neurological: Cranial nerves II-XII grossly intact, Neuro grossly intact, Motor Exam 5/5 strength throughout Psych/Mental Status: Appropriate, Flat Affect Vital Signs Temp Pulse Resp BP Pulse Ox 38.0 C H 79 27 H 164/77 H 95 04/09/18 14:12 04/09/18 14:10 04/09/18 14:10 04/09/18 13:10 04/09/18 14:12 Oxygen Flow Rate (L/min) 2 Oxygen Delivery Method Nasal Cannula Weight: 90.718 kg Body Mass Index (BMI) 39.0 Finger Stick Blood Glucose 187 Laboratory Tests Past 24 Hrs 04/09/18 04/09/18 04/09/18 09:20 09:20 09:20 WBC 10.9 RBC 4.37 Hgb 11.3 L Hct 38.9 MCV 89.0 MCH 25.9 L MCHC 29.0 L RDW 20.9 H RDW Differential 68.4 H Plt Count 222 MPV 10.5 Immature Gran % (Auto) 0.200 Neut % (Auto) 80.4 H Lymph % (Auto) 9.0 L [place] % (Auto) 9.8 Eos % (Auto) 0.4 Baso % (Auto) 0.2 Absolute Neuts (auto) 8.7 H Absolute Lymphs (auto) 0.98 Total Counted Not Reportable Hypochromasia 1+ Anisocytosis 1+ PT 18.0 H INR 1.5 APTT 38.1 H Specimen Type Sample Site pH Bicarbonate Actual POC Total CO2 Base Excess O2 Saturation ABG pCO2 ABG pO2 Rakesh Test VBG Carboxyhemoglobin 0.0 O2 Delivery Device Liter Flow Blood Gas Notified Whom Blood Gas Notified Time Sodium Potassium Chloride Carbon Dioxide Anion Gap BUN Creatinine Estim Creat Clear Calc Est GFR (MDRD) Af Amer Est GFR (MDRD) Non-Af BUN/Creatinine Ratio Glucose Lactic Acid Calcium Total Bilirubin AST ALT Alkaline Phosphatase Troponin I B-Natriuretic Peptide Total Protein Albumin Globulin Albumin/Globulin Ratio Lipase Urine Color Urine Clarity Urine pH Ur Specific [place] Urine Protein Urine Glucose (UA) Urine Ketones Urine Occult Blood Urine Nitrite Urine Bilirubin Urine Urobilinogen Ur Leukocyte Esterase Urine RBC Urine WBC Ur Squamous Epith Cells Urine Bacteria Urine Mucus 04/09/18 04/09/18 04/09/18 09:20 09:20 10:03 WBC RBC Hgb Hct MCV MCH MCHC RDW RDW Differential Plt Count MPV Immature Gran % (Auto) Neut % (Auto) Lymph % (Auto) [place] % (Auto) Eos % (Auto) Baso % (Auto) Absolute Neuts (auto) Absolute Lymphs (auto) Total Counted Hypochromasia Anisocytosis PT INR APTT Specimen Type Sample Site pH Bicarbonate Actual POC Total CO2 Base Excess O2 Saturation ABG pCO2 ABG pO2 Rakesh Test VBG Carboxyhemoglobin O2 Delivery Device Liter Flow Blood Gas Notified Whom Blood Gas Notified Time Sodium 139 Potassium 3.6 Chloride 104 Carbon Dioxide 26.0 Anion Gap 9 BUN 17 Creatinine 1.47 H Estim Creat Clear Calc 24.12 Est GFR (MDRD) Af Amer 45 L Est GFR (MDRD) Non-Af 37 L BUN/Creatinine Ratio 11.6 Glucose 164 H Lactic Acid 1.5 Calcium 8.4 L Total Bilirubin 0.70 AST 29 ALT 25 Alkaline Phosphatase 74 Troponin I 0.032 B-Natriuretic Peptide 293.3 H Total Protein 6.5 Albumin 3.0 L Globulin 3.5 Albumin/Globulin Ratio 0.9 Lipase 92 Urine Color Urine Clarity Urine pH Ur Specific [place] Urine Protein Urine Glucose (UA) Urine Ketones Urine Occult Blood Urine Nitrite Urine Bilirubin Urine Urobilinogen Ur Leukocyte Esterase Urine RBC Urine WBC Ur Squamous Epith Cells Urine Bacteria Urine Mucus 04/09/18 04/09/18 10:20 12:40 WBC RBC Hgb Hct MCV MCH MCHC RDW RDW Differential Plt Count MPV Immature Gran % (Auto) Neut % (Auto) Lymph % (Auto) [place] % (Auto) Eos % (Auto) Baso % (Auto) Absolute Neuts (auto) Absolute Lymphs (auto) Total Counted Hypochromasia Anisocytosis PT INR APTT Specimen Type ART Sample Site L Radial pH 7.38 Bicarbonate Actual 28.0 H POC Total CO2 29 Base Excess 3 H O2 Saturation 58 L ABG pCO2 47.6 H ABG pO2 31 L* Rakesh Test NA VBG Carboxyhemoglobin O2 Delivery Device Nasal Can Liter Flow 1.0 Blood Gas Notified Whom ED Blood Gas Notified Time 1019 Sodium Potassium Chloride Carbon Dioxide Anion Gap BUN Creatinine Estim Creat Clear Calc Est GFR (MDRD) Af Amer Est GFR (MDRD) Non-Af BUN/Creatinine Ratio Glucose Lactic Acid Calcium Total Bilirubin AST ALT Alkaline Phosphatase Troponin I B-Natriuretic Peptide Total Protein Albumin Globulin Albumin/Globulin Ratio Lipase Urine Color SEE COMMENT BELOW Urine Clarity Turbid Urine pH 5.0 Ur Specific [place] 1.020 Urine Protein 100 H Urine Glucose (UA) Normal Urine Ketones Negative Urine Occult Blood 150 H Urine Nitrite Positive H Urine Bilirubin 6 H Urine Urobilinogen 8 H Ur Leukocyte Esterase 500 H Urine RBC 0 SEEN Urine WBC >100 SEEN Ur Squamous Epith Cells 0 SEEN Urine Bacteria 0 SEEN Urine Mucus 0 SEEN Chest x-ray personally reviewed and showed poor inspiratory effort point vascular congestion. Assessment/Plan All Active Problems (Last Reviewed 02/17/18 @ 00:56 by Oziel Angel MD) UTI (urinary tract infection) (Acute) Metabolic encephalopathy (Acute) Diastolic CHF (Acute) Severe sepsis (Acute) Acute cystitis (Acute) Cellulitis (Acute) Ulcer of right lower extremity with fat layer exposed (Acute) Ulcer of left lower extremity with fat layer exposed (Acute) 1.: Suspected urinary tract infection: Urinalysis is positive leuk esterase and white blood cells but no bacteria noted. Patient received ceftriaxone in the emergency room the patient rash. Dvdehxqa-tw-vuy thinks it may have been before but has been no new medications for the patient. So put the patient on Bactrim as patient appears not to have any sulfa allergy and await final culture results. No clinical sepsis upon arrival. 2. Possible bronchitis: We will place patient on prednisone as well as bronchodilators and monitor. 3. Metabolic encephalopathy: Likely due to infectious cause whether to UTI or b ronchitis. Comp gating this is a patient concurrent use of gabapentin. Will hold gabapentin for now and monitor. May also be a component of postconcussion syndrome as patient did hit her head yesterday. She did have a CAT scan at that time that was negative. She has no neurologic deficit is at this time to warrant repeat imaging. 4. rash: Unclear type. Meaning could be a drug rash on Rocephin or could be a contact dermatitis from the gown perhaps or something else altogether. Patient will be on prednisone just because of the possible bronchitis but did hold off on the ceftriaxone as of unclear if that is the inciting agent or not. No clinical evidence of Stewart-Indra's or toxic epidermal necrolysis at this time. 5. Paroxysmal atrial fibrillation: Currently rate controlled. Continue with Xarelto, metoprolol and amiodarone. 6. Heart failure with preserved ejection fraction: Ejection fraction of 65% from echocardiogram on June 18, 2017. Clinically compensated at this time. Chest x-ray does show poor vascular congestion, however, it is a poor study me that she just had a very poor respiratory effort so there may be just some crowding associated with that. Would just continue with the Lasix that she is on for now. 7. DVT prophylaxis: Patient is currently anticoagulated on Xarelto. 8. Advanced care planning: Discussed with the patient's [id number]-[id number] and the patient. Patient is confused and the mugmeoty-ky-fdb is present is not the power of real estate attorney. Did advise him to discuss with the power of real estate attorney regards to make sure that we have a proper advance directive. Full CODE STATUS at this time. 9. Debility: Patient has a very poor performance status at baseline using a walker. Whatever caused to be more week, whether the infection, postconcussion, medications and so forth only complicated the picture. Physical outpatient therapy to evaluate and treat. I anticipate patient will acquiring placement at a custodial facility upon discharge. Expected length of stay is 48-72 hours. Code Visit Inpatient E&M: 42473 Init Hosp L3
--- NOTE | 2018-04-09 14:52 | CASEMGMT ---
RN CM Assessment Introduced role of RN CM to patient and ejresv-sf-wfy Jacinto at bedside. Patient is alert, oriented with some forgetfulness and able to participate in RN CM Assessment with [id number]-ls-lkk answering some of the questions. Care providers, pharmacy, and demographics verified. Re-Admit- No, Was Admitted 02/16/18-02/20/18 for Severe Sepsis s/t Acute Cystitis from E Coli. Was [facility]'d to [facility], also SW left a w/ Otilia Pace @ [facility] upon DC. Presentation: Confusion, recent fall 2 days ago without LOC, w/injury to head and lower back. CT- Neg @ Dr Franco yesterday. H/o Multiple Sclerosis. Needs reminding and assistance with medications, patient does forget to take medications sometimes. CM offered suggestion to purchasing a reminder/alarm/alert watch to assist as someone is not with patient 28/08. Also discussed with vxwlpg-fs-leu per her question re: Life alert, states patient had one that she paid for and no longer has- CM advised to see what Company patient had it through or obtain more detail with family and if needs resources for obtaining, aware to s/w Campus Interviews Intern during this admission. PCP: Dr Desmond Franco Specialists: Neuro- Dr Lazcano, Cardio- Dr Luna, Uro- ? Preferred Pharmacy: [facility] [employer] Insurance: Anthem Medicare Senior Advantage Prescription Benefit: Yes LNOK: Sister Monika Kelly Living Arrangements: Lives with sister Monika Kelly, Son Hola, and Wjtluask-sm-bzh Best in a Home with ramp. Ambulates with walker, not far per ixsgcm-xf-ngy Jacinto. Independent with ADL's but requires assistance with Medication management. Transportation: Sister Monika normally drives but currently unable to so Ren Simental or pelnzwgh-gj-szz Best will drive on DC. DME: Walker, WC, Shower Chair, Glucometer. States Preference with DME through insurance. HHC: States past- [facility]. Currently receiving HH RN for LE Wounds and wrapping and PT- Unsure which HHH Agency and if with [facility]. [facility]- Next appt on 04/11/18 per uhcxae-cn-gyj. SNF: Past- [facility], [facility] has been out of SNF x3 weeks. States Preference with Insurance. DC PLAN: Home with Continuation of HH RN and PT. Possible SW Consult to provide resources on Life Alert or Similar alert Device, May need to discuss or offer resources on additional in home support if patient deconditions with weakness and more frequent falls. Dena Holm RNCM
[2018-04-09] MEDS: Furosemide 40 MG Tablet PO (18:22)
[2018-04-09] MEDS: Rivaroxaban 15 MG Tablet PO (18:23)
[2018-04-09] MEDS: Smz/Tmp Ds Tablet 1 TABLET PO (18:23)
[2018-04-09] MEDS: Phenazopyridine 95 MG Tablet 190 MG PO (18:23)
[2018-04-09] MEDS: predniSONE 20 MG Tablet 40 MG PO ×2 (19:03→19:04)
[2018-04-09] MEDS: Oseltamivir Phosphate 30 MG Capsule PO (19:03)
[2018-04-09] MEDS: Metoprolol Tartrate 50 MG Tablet PO (20:40)
[2018-04-09] MEDS: Acetaminophen 325 MG Tablet 650 MG PO (20:40)
[2018-04-09] MEDS: Magnesium Oxide 400 MG Tablet PO (20:40)
[2018-04-09] MEDS: guaiFENesin 600 MG Tablet PO (20:40)
[2018-04-10] VITALS (14 sets, daily range): BP systolic 136–152; BP diastolic 49–86; PULSE 63–84; RESP 16–22; TEMP 36.4–37; O2SAT 88–96
[2018-04-10] MEDS: Ipratropium/Albuterol Sulfate 3 ML AMPUL.NEB INHALATION ×5 (02:41→19:25)
[2018-04-10 06:22] LABS: Absolute Lymphocyte Count 0.24 X10^3/ul (0.83-4.51); Absolute Neutrophil Count 12.7 X10^3/uL (2.0-7.7); Basophil# 0.01 X10^3/uL; Basophil% 0.1 % (0-1); Hematocrit 38.9 % (37-47); Hemoglobin 11.4 g/dl (12.0-15.0); Lymphocyte # 0.24 X10^3/ul (4.0); Lymphocyte % 1.8 % (19-41); Mean Corp Hgb Conc 29.3 g/gl (32-36); Mean Corpuscular Hgb 26.1 pg (27.0-32.0); Mean Corpuscular Volume 89.2 fL (81-99); Mean Platelet Vol. 10.2 fl (6.2-12.0); Monocyte# 0.62 X10^3/uL; Monocyte% 4.5 % (0-10); Neutrophil # 12.73 X10^3/uL (2.7-7.7); Neutrophil % 93.3 % (47-70); Platelet Count 196 K/mm3 (150-450); RBC Distribution Width CV 20.6 % (11.6-14.6); RBC Distribution Width SD 65.6 fl (35.1-43.9); Red Blood Count 4.36 M/mm3 (4.2-5.4); White Blood Count 13.6 K/mm3 (4.4-11.0)
[2018-04-10 06:25] LABS: Anion Gap 11 (5-15); BUN 26 mg/dL (7-18); BUN/Creat Ratio 19.8 RATIO (10-20); Calcium,Total 8.4 mg/dL (8.5-10.1); Chloride 109 mmol/L (98-107); Creatinine, Serum 1.31 mg/dL (0.55-1.02); EST Glomerular Filtration Rate 42 mL/min (>60); Est Glom Filt Rate - Afr Amer 51 mL/min (>60); Estimated Creatinine Clearance 27.06 ml/min; Glucose 183 mg/dL (74-106); Potassium 4.2 mmol/L (3.5-5.1); Sodium Level 144 mmol/L (136-145)
[2018-04-10 06:27] LABS: Differential Indicated SCAN CRITERIA MET; POSITIVE COUNT NO; POSITIVE DIFFERENTIAL YES; POSITIVE MORPHOLOGY YES
[2018-04-10 06:38] LABS: Anisocytosis 1+; Polychromasia RARE
[2018-04-10] MEDS: Metoprolol Tartrate 50 MG Tablet PO ×2 (09:12→21:24)
[2018-04-10] MEDS: DULoxetine Hcl 60 MG Capsule PO (09:12)
[2018-04-10] MEDS: Pantoprazole Sodium 40 MG Tablet PO (09:12)
[2018-04-10] MEDS: Phenazopyridine 95 MG Tablet 190 MG PO ×3 (09:12→17:26)
[2018-04-10] MEDS: predniSONE 20 MG Tablet 40 MG PO (09:12)
[2018-04-10] MEDS: Smz/Tmp Ds Tablet 1 TABLET PO (09:12)
[2018-04-10] MEDS: Magnesium Oxide 400 MG Tablet PO ×2 (09:13→21:25)
[2018-04-10] MEDS: Oseltamivir Phosphate 30 MG Capsule PO (09:13)
[2018-04-10] MEDS: Amiodarone 200 MG Tablet PO (09:13)
[2018-04-10] MEDS: guaiFENesin 600 MG Tablet PO ×2 (09:13→21:25)
[2018-04-10] MEDS: DiphenhydrAMINE 25 MG Capsule PO (10:05)
[2018-04-10] MEDS: Furosemide 40 MG/4 ML Vial IV ×2 (10:05→17:26)
--- NOTE | 2018-04-10 13:51 | CHAPLAIN ---
Type of Pastoral Visit _x__ Initial Visit ___ Follow-up Visit ___ On-call Visit ___ General Patient Visit ___ Spiritual Assessment ___ Family Conference ___ Bereavement ___ Rapid Response ___ Code Blue ___ Other (describe below) Pastoral Care Referral From _x__ Patient ___ Family ___ Nurse ___ Physician ___ Swatch Clerk ___ Grounds Restoration Specialist ___ Other (describe below) Sacrament/Intervention _x__ Active listening ___ Anointing ___ Buddhist _x__ Bereavement ___ Communion ___ Aminah exploration ___ ___ Life review _x__ Prayer ___ Reconciliation ___ Sacrament of Sick _x__ Supportive presence ___ Wedding ___ Other (describe below) Pastoral Comments patient speaks of frustration as she itches from her hives/rash; pt says that she really needs a prayer right now and asks for quick relief for her problem; pt also speaks of the hard years recently with many deaths in the family; pt requests help with opening salad dressing packets and asks that regional property manager keep her in his prayers
--- NOTE | 2018-04-10 14:29 | NURSING ---
[facility] student nurse's charting reviewed for educational learning purposes by kevin mclaughlin.
[2018-04-10] MEDS: DiphenhydrAMINE 25 MG Capsule 50 MG PO ×2 (15:32→21:24)
[2018-04-10] MEDS: MethylPREDNISolone 125 MG/2 ML Vial 80 MG IV (15:32)
[2018-04-10] MEDS: Rivaroxaban 15 MG Tablet PO (17:26)
--- NOTE | 2018-04-10 19:19 | PCM.PROGNOTE ---
Patient Problems: Active and Suspected Problems (Last Updated 04/09/18 @ 14:40 by Douglas Bowman DO) UTI (urinary tract infection) (Acute) Metabolic encephalopathy (Acute) Subjective: Patient was seen and examined today, patient complained of itching since administration of Rocephin yesterday, patient's respiratory panel was positive for influenza A and she is now on Tamiflu. Patient's antibiotic was changed to Bactrim. I took the patient off of oral prednisone today, I gave her IV Solu-Medrol this afternoon, due to wheezing I will continue this for now. - Physical Exam General: Alert, Oriented x3, Cooperative HEENT: Atraumatic, PERRLA, EOMI, Normocephalic Oral: Moist Mucosa Neck: Supple, No JVD, Negative Carotid Bruits Lungs: Normal air movement, No rhonchi, No rales, Wheezes - Expiratory wheezes noted bilaterally Cardiovascular: Regular rate, Regular Rhythm, Normal S1, Normal S2, No murmurs, No Ectopic Activity Abdomen: Bowel Sounds Present, Soft, Non Tender, Non-Distended Extremities: No clubbing, No cyanosis, No edema, Capillary Refill Less than 3 Seconds Skin: No rashes, No breakdown Musculoskeletal: No Tenderness to Palpation of Joints or Extremities Neurological: Cranial nerves II-XII grossly intact, Neuro grossly intact, Sensory exam intact to light touch and pain, Coordination normal Psych/Mental Status: Normal Affect, Appropriate, Alert and oriented to time, place, person, mood and affect Vital Signs Temp Pulse Resp BP Pulse Ox 97.5 F L 75 20 H 146/69 H 91 04/10/18 12:29 04/10/18 15:41 04/10/18 15:41 04/10/18 12:29 04/10/18 12:29 Oxygen Flow Rate (L/min) 2 Oxygen Delivery Method Nasal Cannula Weight: 93 kg Body Mass Index (BMI) 40.0 Finger Stick Blood Glucose 187 Intake and Output for Last 24 Hours 04/08/18 04/09/18 04/10/18 23:59 23:59 23:59 Intake Total 240 / 240 350 / 350 Output Total 200 / 200 Balance 240 / 240 150 / 150 Microbiology Past 72 Hours 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 Laboratory Tests Past 24 Hrs 04/10/18 04/10/18 05:52 05:52 WBC 13.6 H RBC 4.36 Hgb 11.4 L Hct 38.9 MCV 89.2 MCH 26.1 L MCHC 29.3 L RDW 20.6 H RDW Differential 65.6 H Plt Count 196 MPV 10.2 Immature Gran % (Auto) 0.300 Neut % (Auto) 93.3 H Lymph % (Auto) 1.8 L Carlton % (Auto) 4.5 Eos % (Auto) 0.0 Baso % (Auto) 0.1 Absolute Neuts (auto) 12.7 H Absolute Lymphs (auto) 0.24 L Total Counted Not Reportable Differential Comment Polychromasia RARE Anisocytosis 1+ Sodium 144 Potassium 4.2 Chloride 109 H Carbon Dioxide 24.0 Anion Gap 11 BUN 26 H Creatinine 1.31 H Estim Creat Clear Calc 27.06 Est GFR (MDRD) Af Amer 51 L Est GFR (MDRD) Non-Af 42 L BUN/Creatinine Ratio 19.8 Glucose 183 H Calcium 8.4 L Medical Necessity - Tobacco Use Smoking Status: Former smoker Tobacco Use: Non-smoker Assessment/Plan All Active Problems (Last Updated 04/09/18 @ 14:40 by Douglas Bowman DO) UTI (urinary tract infection) (Acute) Metabolic encephalopathy (Acute) Diastolic CHF (Resolved) Ulcer of left lower extremity with fat layer exposed (Resolved) #1 acute cystitis-suspect gram negative bacterial, continue Bactrim #2 influenza A-continue Tamiflu #3 bronchial hyperreactivity secondary to influenza A-patient will continue on IV Solu-Medrol #4 metabolic encephalopathy-secondary to acute cystitis and influenza A #5 atherosclerotic heart disease #6 hypertension #7 hyperlipidemia #8 hypoxia-probably secondary to diastolic CHF-continue IV Lasix #9 acute on chronic diastolic CHF #10 paroxysmal atrial fibrillation Code Visit Inpatient E&M: 80629 Subs Hosp L2
[2018-04-10] MEDS: Acetaminophen 325 MG Tablet 650 MG PO (19:56)
[2018-04-10] MEDS: Albuterol 2.5 MG/3 ML VIAL.NEB. INHALATION (21:46)
[2018-04-11] VITALS (13 sets, daily range): BP systolic 143–160; BP diastolic 45–75; PULSE 65–85; RESP 16–20; TEMP 36.4–37.1; O2SAT 87–93
[2018-04-11] MEDS: Ipratropium/Albuterol Sulfate 3 ML AMPUL.NEB INHALATION ×5 (03:50→23:27)
[2018-04-11] MEDS: DiphenhydrAMINE 25 MG Capsule 50 MG PO (03:58)
[2018-04-11] MEDS: Phenazopyridine 95 MG Tablet 190 MG PO ×3 (08:33→16:02)
[2018-04-11] MEDS: Smz/Tmp Ds Tablet 1 TABLET PO (08:33)
[2018-04-11] MEDS: Amiodarone 200 MG Tablet PO (08:34)
[2018-04-11] MEDS: 0.9% NaCl Peripheral Flush Adult/Peds IV ×2 (08:43→18:41)
[2018-04-11] MEDS: Pantoprazole Sodium 40 MG Tablet PO (08:47)
[2018-04-11] MEDS: Oseltamivir Phosphate 30 MG Capsule PO (08:47)
[2018-04-11] MEDS: Furosemide 40 MG/4 ML Vial IV ×2 (08:47→18:41)
[2018-04-11] MEDS: Metoprolol Tartrate 50 MG Tablet PO ×2 (08:47→22:12)
[2018-04-11] MEDS: DULoxetine Hcl 60 MG Capsule PO (08:47)
[2018-04-11] MEDS: Magnesium Oxide 400 MG Tablet PO ×2 (08:47→22:12)
[2018-04-11] MEDS: guaiFENesin 600 MG Tablet PO ×2 (08:47→22:12)
--- NOTE | 2018-04-11 14:59 | CASEMGMT ---
RN ROSIBEL call [facility] to inquire if patient was on their servicecs, and patient is not currently active with [facility]. INÉS GLEASON called the wound center to inquire if they new who patient was setup with for HHC and confirmed that HHC is setup with [facility] and was given Dest[facility] at [facility], contact information P: [phone] F: [phone]. INÉS GLEASON spoke with [facility] and patient currently is active with [facility]. CM will send discharge information and resumption order when available. CM will continue to follow this patient and plan for a safe discharge.
[2018-04-11] MEDS: Rivaroxaban 15 MG Tablet PO (16:02)
--- NOTE | 2018-04-11 19:19 | PCM.PROGNOTE ---
Patient Problems: Active and Suspected Problems (Last Updated 04/10/18 @ 19:24 by Nicanor Hoyt DO) UTI (urinary tract infection) (Acute) Metabolic encephalopathy (Acute) Subjective: Patient was seen and examined today, she is currently on room air. Patient has no specific complaints to this examiner - Physical Exam General: Alert, Oriented x3, Cooperative, No apparent distress, Well developed, Well nourished HEENT: Atraumatic, PERRLA, EOMI, Normocephalic Oral: Moist Mucosa Neck: Supple, No Nuchal Rigidity, Trachea Midline, Thyroid Normal Size and Texture Lungs: Clear to auscultation, Normal air movement, No rhonchi, No wheeze, No rales Cardiovascular: Regular rate, Regular Rhythm, Normal S1, Normal S2, No murmurs, No Ectopic Activity Abdomen: Bowel Sounds Present, Soft, Non Tender, Non-Distended Extremities: No clubbing, No cyanosis, No edema, Capillary Refill Less than 3 Seconds Skin: No rashes, No breakdown Musculoskeletal: No Tenderness to Palpation of Joints or Extremities Neurological: Cranial nerves II-XII grossly intact, Neuro grossly intact, Sensory exam intact to light touch and pain, Coordination normal Psych/Mental Status: Normal Affect, Appropriate, Alert and oriented to time, place, person, mood and affect Vital Signs Temp Pulse Resp BP Pulse Ox 97.6 F L 74 20 H 143/63 H 91 04/11/18 14:40 04/11/18 15:53 04/11/18 15:53 04/11/18 14:40 04/11/18 16:30 Oxygen Flow Rate (L/min) 2 Oxygen Delivery Method Room Air Weight: 93 kg Body Mass Index (BMI) 40.0 Finger Stick Blood Glucose 187 Intake and Output for Last 24 Hours 04/09/18 04/10/18 04/11/18 23:59 23:59 23:59 Intake Total 240 / 240 350 / 350 500 / 500 Output Total 200 / 200 300 / 300 Balance 240 / 240 150 / 150 200 / 200 Microbiology Past 72 Hours 04/09/18 14:19 Blood Culture - Preliminary Blood Culture (Wb) - Anticubital Right No growth in 48 hours. 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 - Tobacco Use Smoking Status: Former smoker Tobacco Use: Non-smoker Assessment/Plan All Active Problems (Last Updated 04/10/18 @ 19:24 by Nicanor Hoyt DO) UTI (urinary tract infection) (Acute) Metabolic encephalopathy (Acute) Diastolic CHF (Resolved) Ulcer of left lower extremity with fat layer exposed (Resolved) #1 acute cystitis-gram negative bacterial, continue Bactrim #2 influenza A-continue Tamiflu #3 bronchial hyperreactivity secondary to influenza A-resolved at this time #4 metabolic encephalopathy-secondary to acute cystitis and influenza A #5 atherosclerotic heart disease #6 hypertension #7 hyperlipidemia #8 hypoxia-probably secondary to diastolic CHF-patient is currently on room air #9 acute on chronic diastolic CHF-patient admitted to this examiner today that she has not been taking her Lasix as directed, she is only taking one Lasix a day when she is supposed to be taking 1 twice a day. I talked to her about this today. #10 paroxysmal atrial fibrillation Code Visit Inpatient E&M: 43870 Subs Hosp L2
--- NOTE | 2018-04-11 19:47 | CPS ---
placed pt on 2 lpm nc for night
[2018-04-11] MEDS: Acetaminophen 325 MG Tablet 650 MG PO (22:12)
[2018-04-12] VITALS (18 sets, daily range): BP systolic 135–153; BP diastolic 52–65; PULSE 64–75; RESP 20–24; TEMP 36.6–37.1; O2SAT 81–97
[2018-04-12] MEDS: Ipratropium/Albuterol Sulfate 3 ML AMPUL.NEB INHALATION ×5 (03:13→22:36)
[2018-04-12] MEDS: Amiodarone 200 MG Tablet PO (09:38)
[2018-04-12] MEDS: guaiFENesin 600 MG Tablet PO ×2 (09:38→22:10)
[2018-04-12] MEDS: Phenazopyridine 95 MG Tablet 190 MG PO ×3 (09:38→18:40)
[2018-04-12] MEDS: Smz/Tmp Ds Tablet 1 TABLET PO (09:39)
[2018-04-12] MEDS: Oseltamivir Phosphate 30 MG Capsule PO (09:39)
[2018-04-12] MEDS: Metoprolol Tartrate 50 MG Tablet PO ×2 (09:39→22:10)
[2018-04-12] MEDS: Furosemide 40 MG/4 ML Vial IV (09:40)
[2018-04-12] MEDS: Magnesium Oxide 400 MG Tablet PO ×2 (09:40→22:10)
[2018-04-12] MEDS: Pantoprazole Sodium 40 MG Tablet PO (09:40)
[2018-04-12] MEDS: DULoxetine Hcl 60 MG Capsule PO (09:40)
[2018-04-12] MEDS: 0.9% NaCl Peripheral Flush Adult/Peds IV (09:41)
[2018-04-12] MEDS: Acetaminophen 325 MG Tablet 650 MG PO ×2 (10:15→22:30)
--- NOTE | 2018-04-12 11:51 | DCINST_ITS ---
- Discharge Diagnoses Current Active Problems: Current Active and Chronic Problems (Last Updated 04/10/18 @ 19:24 by Nicanor Hoyt DO) UTI (urinary tract infection) (Acute) Metabolic encephalopathy (Acute) You will use the following diet at home:: No restrictions Your food should be the consistency of: Regular Your liquids should be the consistency of: Regular/Thin Discharge Activity: Return to Normal Activity Weight Bearing Status: Full weight bearing Allergies/Adverse Reactions: Allergies codeine Allergy (Unknown, Verified 04/09/18 14:34) Hives ciprofloxacin [From Cipro] Allergy (Verified 04/09/18 12:44) Hives ciprofloxacin HCl [From Cipro] Allergy (Verified 04/09/18 12:44) Hives Latex, Natural Rubber Allergy (Verified 04/09/18 12:44) Rash Penicillins [PCN] Allergy (Verified 04/09/18 12:44) Hives adhesive tape Adverse Reaction (Verified 04/09/18 12:44) Rash Medications to take at Discharge Acetaminophen [Tylenol] 650 mg PO Q6H PRN 04/09/18 Amiodarone HCl 200 mg PO DAILY 04/09/18 Duloxetine HCl 60 mg PO DAILY 04/09/18 Furosemide [Lasix] 40 mg PO BIDLX 04/09/18 Gabapentin [Neurontin] 300 mg PO QHS 04/09/18 Iron Polysaccharide Complex [Ferrex 150] 150 mg PO DAILY 04/09/18 Magnesium Oxide [Mag-Ox 400] 400 mg PO BID 04/09/18 Metoprolol Tartrate [Lopressor (beta man)] 50 mg PO BID 04/09/18 Pantoprazole Sodium [Protonix] 40 mg PO DAILY 04/09/18 Phenazopyridine [Pyridium] 200 mg PO TID PRN 04/09/18 Potassium Chloride [Klor-Con] 20 meq PO BID 04/09/18 Rivaroxaban [Xarelto] 15 mg PO DAILY 04/09/18 Nitrofurantoin Monohyd/M-Cryst [Macrobid 100 mg Capsule] 100 mg PO BID #10 capsule 04/12/18 Oseltamivir Phosphate [Tamiflu] 30 mg PO DAILY #7 capsule 04/12/18 The following prescriptions were given: Oseltamivir Phosphate [Tamiflu] 30 mg PO DAILY #7 capsule Nitrofurantoin Monohyd/M-Cryst [Macrobid 100 mg Capsule] 100 mg PO BID #10 capsule Primary Care Physician: Octaviano Franco Chi, MD [Primary Care Provider] - Please follow up with your Primary Care Physician in: next week Test Results: Test results from this visit will be discussed in further detail at your follow- up appointment, if applicable.
--- NOTE | 2018-04-12 13:15 | RAD_ITS ---
STUDY: X-RAY CHEST REASON FOR EXAM: Female, 73 years old. Shortness of breath, urinary tract infection, infectious encephalopathy. TECHNIQUE: PA and lateral chest COMPARISON: 04/09/2017 chest x-ray. FINDINGS: Median sternotomy and CABG. The lungs are clear and expanded. Mild cardiac Madeley. Unremarkable mediastinal silhouette, alee and pleural margins. No acute osseous or upper abdominal process. Thoracic kyphosis. Mild thoracal lumbar scoliosis. Mild thoracic spondylosis. Osteopenia. RAD/Chest PA and Lateral IMPRESSION: No acute cardiopulmonary process. Electronically Signed: Krunal Khan MD at 15:24 EST Tel , Service support ,
--- NOTE | 2018-04-12 13:56 | CASEMGMT ---
RN Note: Pt to dc home with [facility] and [facility] oxygen set up if needed. Call to [facility] to notify pt will remain in hospital today. GREEN SHEET with numbers and instructions for dc on front of chart. [facility] PH: FAX: Eduarda GOMEZ RN ACM
[2018-04-12] MEDS: predniSONE 20 MG Tablet 40 MG PO (15:35)
--- NOTE | 2018-04-12 15:57 | NURSING ---
SITTING IN CHAIR ON RA. SPO2 88% ON RA AT REST. REAPPLIED OXYGEN ON AT 2L NC AND SPO2 BACK UP TO 91%. PT STATES SHE IS TIRED.
[2018-04-12] MEDS: Furosemide 20 MG Tablet 60 MG PO (18:40)
[2018-04-12] MEDS: Rivaroxaban 15 MG Tablet PO (18:41)
--- NOTE | 2018-04-12 20:00 | PN_ITS ---
Patient Problems: Active and Suspected Problems (Last Updated 04/10/18 @ 19:24 by Nicanor Hoyt DO) UTI (urinary tract infection) (Acute) Metabolic encephalopathy (Acute) Subjective: Patient was seen and examined today, urine culture grew out Klebsiella pneumoniae 80,000 100,000 colonies, the organism is ESBL, my feeling is that the organism is probably a colonizer of the bladder. I have elected nonetheless to place the patient on Macrobid which it has intermediate sensitivity. Patient does not have any symptoms of urinary tract infection at this time however, she did have expiratory wheezing today and her pulse ox was 88% on room air. I initially thought that the patient could be discharged today but due to her whee zing, I obtained a chest x-ray which was negative for any infiltrates and I placed her on prednisone and oral Lasix (due to the fact the patient's IV went bad). Patient will need to be checked again in the morning to see if she requires home O2, she is noncompliant with her medicines at home and I would rather not send her home on oxygen unless it could not be avoided. Patient states that she smoked for 40 years 2 packs of cigarettes a day. - Physical Exam General: Alert, Oriented x3, Cooperative, No apparent distress, Well developed, Well nourished HEENT: Atraumatic, PERRLA, EOMI, Normocephalic Oral: Moist Mucosa Neck: Supple, No Nuchal Rigidity, Trachea Midline, Thyroid Normal Size and Texture Lungs: Normal air movement, No rhonchi, No rales, Wheezes - Scattered expiratory wheezes bilaterally Cardiovascular: Regular rate, Regular Rhythm, Normal S1, Normal S2, No murmurs, No Ectopic Activity, PMI Normal, No rub noted, No Gallop Abdomen: Bowel Sounds Present, Soft, Non Tender, Non-Distended, Obese Extremities: No clubbing, No cyanosis, Capillary Refill Less than 3 Seconds Skin: No rashes, No breakdown Musculoskeletal: No Tenderness to Palpation of Joints or Extremities Neurological: Cranial nerves II-XII grossly intact, Neuro grossly intact, Sensory exam intact to light touch and pain Psych/Mental Status: Normal Affect, Appropriate, Alert and oriented to time, place, person, mood and affect Vital Signs Temp Pulse Resp BP Pulse Ox 97.8 F 64 22 H 153/60 H 93 04/12/18 18:00 04/12/18 19:17 04/12/18 19:17 04/12/18 18:00 04/12/18 19:17 Oxygen Flow Rate (L/min) [ 2 AMBULATION with Oxygen] Oxygen Flow Rate (L/min) 2 Oxygen Delivery Method Nasal Cannula Weight: 93 kg Body Mass Index (BMI) 40.0 Finger Stick Blood Glucose 187 Intake and Output for Last 24 Hours 04/10/18 04/11/18 04/12/18 23:59 23:59 23:59 Intake Total 350 / 350 500 / 500 1300 / 1300 Output Total 200 / 200 300 / 300 200 / 200 Balance 150 / 150 200 / 200 1100 / 1100 Microbiology Past 72 Hours 04/09/18 12:40 Urine Culture - Final Urine Catheter - Catheter Klebsiella pneumoniae sp pneum 04/09/18 14:19 Blood Culture - Preliminary Blood Culture (Wb) - Anticubital Right No growth in 48 hours. 04/09/18 16:23 Influenza Types A,B Direct FA ([place]) - Final Mucosa - Nasopharyngeal Influenzae A Medical Necessity - Tobacco Use Smoking Status: Former smoker Tobacco Use: Non-smoker Assessment/Plan All Active Problems (Last Updated 04/10/18 @ 19:24 by Nicanor Hoyt DO) UTI (urinary tract infection) (Acute) Metabolic encephalopathy (Acute) Diastolic CHF (Resolved) Ulcer of left lower extremity with fat layer exposed (Resolved) #1 acute cystitis-gram negative bacterial (Klebsiella pneumoniae-ESBL), I stopped the patient's Bactrim today and placed her on Macrobid, again I am not sure that the patient is not colonized with this ESBL organism #2 influenza A-continue Tamiflu #3 bronchial hyperreactivity secondary to influenza A-patient was placed on oral prednisone today #4 metabolic encephalopathy-secondary to acute cystitis and influenza A #5 atherosclerotic heart disease #6 hypertension #7 hyperlipidemia #8 hypoxia-probably secondary to diastolic CHF and bronchial hyperreactivity secondary to influenza A-patient's pulse ox will be checked tomorrow, she may need home O2-I do not know how compliant she will be with this #9 acute on chronic diastolic CHF-patient's chest x-ray does not show any infiltrates today, continue oral Lasix #10 paroxysmal atrial fibrillation Code Visit Inpatient E&M: 19475 Subs Hosp L2
[2018-04-12] MEDS: Nitrofurantoin Macrocrystals 100 MG Capsule PO (22:13)
[2018-04-13] VITALS (17 sets, daily range): BP systolic 109–186; BP diastolic 59–77; PULSE 64–75; RESP 16–22; TEMP 36.6–36.9; O2SAT 2–95
[2018-04-13] MEDS: Ipratropium/Albuterol Sulfate 3 ML AMPUL.NEB INHALATION ×5 (03:29→19:32)
[2018-04-13 07:46] LABS: Anion Gap 9 (5-15); BUN 39 mg/dL (7-18); BUN/Creat Ratio 27.9 RATIO (10-20); Calcium,Total 9.1 mg/dL (8.5-10.1); Chloride 101 mmol/L (98-107); EST Glomerular Filtration Rate 39 mL/min (>60); Est Glom Filt Rate - Afr Amer 47 mL/min (>60); Estimated Creatinine Clearance 25.32 ml/min; Glucose 138 mg/dL (74-106); Potassium 4.2 mmol/L (3.5-5.1); Sodium Level 141 mmol/L (136-145)
--- NOTE | 2018-04-13 09:27 | CPS ---
Patient reported working on PEP Therapy Device on own.
[2018-04-13] MEDS: Pantoprazole Sodium 40 MG Tablet PO (10:12)
[2018-04-13] MEDS: Amiodarone 200 MG Tablet PO (10:12)
[2018-04-13] MEDS: Oseltamivir Phosphate 30 MG Capsule PO (10:13)
[2018-04-13] MEDS: Furosemide 20 MG Tablet 60 MG PO (10:13)
[2018-04-13] MEDS: DULoxetine Hcl 60 MG Capsule PO (10:14)
[2018-04-13] MEDS: guaiFENesin 600 MG Tablet PO ×2 (10:15→22:37)
[2018-04-13] MEDS: Magnesium Oxide 400 MG Tablet PO ×2 (10:15→22:37)
[2018-04-13] MEDS: predniSONE 20 MG Tablet 40 MG PO (10:15)
[2018-04-13] MEDS: Phenazopyridine 95 MG Tablet 190 MG PO ×3 (10:15→18:53)
[2018-04-13] MEDS: Acetaminophen 325 MG Tablet 650 MG PO (10:16)
[2018-04-13] MEDS: Metoprolol Tartrate 50 MG Tablet PO ×2 (10:16→22:37)
[2018-04-13] MEDS: Nitrofurantoin Macrocrystals 100 MG Capsule PO ×2 (10:16→18:53)
--- NOTE | 2018-04-13 12:09 | PCM.PN.HOSP ---
Patient Problems: Active and Suspected Problems (Last Updated 04/10/18 @ 19:24 by Nicanor Hoyt DO) UTI (urinary tract infection) (Acute) Metabolic encephalopathy (Acute) Subjective: Patient seen and examined. She complains of feeling bored in the hospital and wants to go home. She denies any fever chills or shortness of breath though she remains on 2 L of oxygen and she is not on oxygen. She denies any chest pain or palpitations, dizziness, abdominal pain, diarrhea vomiting. Review of systems otherwise negative. Labs and vitals reviewed. Vitals/I&O's: Vital Signs Temp Pulse Resp BP Pulse Ox 98.4 F 73 20 H 109/59 L 94 04/13/18 10:22 04/13/18 10:22 04/13/18 10:22 04/13/18 10:22 04/13/18 10:22 Oxygen Flow Rate (L/min) [ 2 AMBULATION with Oxygen] Oxygen Flow Rate (L/min) 2 Oxygen Delivery Method Nasal Cannula Weight: 205 lb 0.478 oz Body Mass Index (BMI) 40.0 Finger Stick Blood Glucose 187 Intake and Output for Last 24 Hours 04/11/18 04/12/18 04/13/18 23:59 23:59 23:59 Intake Total 500 / 500 1300 / 1300 540 / 540 Output Total 300 / 300 200 / 200 Balance 200 / 200 1100 / 1100 540 / 540 General: Alert, Oriented x3, Cooperative, No apparent distress HEENT: Atraumatic, PERRLA, EOMI, Normocephalic Neck: Supple, No JVD, Negative Carotid Bruits Lungs: - - fine crackles in mid and lower lung gallegos bilaterally, no wheezes Cardiovascular: Regular rate, Regular Rhythm, Normal S1, Normal S2, No murmurs Abdomen: Bowel Sounds Present, Soft, Non Tender, Non-Distended, No Hepato-splenomegaly Extremities: No clubbing, No cyanosis, No edema, Capillary Refill Less than 3 Seconds Skin: No rashes, No breakdown Musculoskeletal: No Tenderness to Palpation of Joints or Extremities Lymphatic: No Cervical, Supraclavicular, or Inguinal Adenopathy Neurological: Cranial nerves II-XII grossly intact, Neuro grossly intact, Motor Exam 5/5 strength throughout Psych/Mental Status: Normal Affect, Appropriate, Alert and oriented to time, place, person, mood and affect Microbiology Past 72 Hours 04/09/18 12:40 Urine Catheter - Catheter Urine Culture - Final Klebsiella pneumoniae sp pneum 04/09/18 14:19 Blood Culture (Wb) - Anticubital Right Blood Culture - Preliminary No growth in 48 hours. 04/09/18 16:23 Mucosa - Nasopharyngeal Influenza Types A,B Direct FA ([place]) - Final Influenzae A Laboratory Results 04/13/18 07:12: Sodium 141, Potassium 4.2, Chloride 101, Carbon Dioxide 31.0, Anion Gap 9, BUN 39 H, Creatinine 1.40 H, Estim Creat Clear Calc 25.32, Est GFR (MDRD) Af Amer 47 L, Est GFR (MDRD) Non-Af 39 L, BUN/Creatinine Ratio 27.9 H, Glucose 138 H, Calcium 9.1 Current Medications Acetaminophen (Tylenol) 650 mg PO Q6H PRN PRN PRN Reason: PAIN Last Admin: 04/13/18 10:16 Dose: 650 mg Albuterol Sulfate (Ventolin Aerosols) 2.5 mg INHALATION Q2H PRN PRN PRN Reason: SHORTNESS OF BREATH Last Admin: 04/10/18 21:46 Dose: 2.5 mg Albuterol/Ipratropium (Duoneb) 3 ml INHALATION Q4H.RT [facility] Last Admin: 04/13/18 11:31 Dose: 3 ml Amiodarone HCl (Cordarone) 200 mg PO DAILY@0800 [facility] Last Admin: 04/13/18 10:12 Dose: 200 mg Duloxetine HCl (Cymbalta) 60 mg PO DAILY [facility] Last Admin: 04/13/18 10:14 Dose: 60 mg Furosemide (Lasix) 60 mg PO BID@1000,1800 [facility] Last Admin: 04/13/18 10:13 Dose: 60 mg Guaifenesin (Mucinex) 600 mg PO BID [facility] Last Admin: 04/13/18 10:15 Dose: 600 mg Magnesium Hydroxide (Milk Of Magnesia) 30 ml PO DAILY PRN PRN PRN Reason: Constipation Magnesium Oxide (Mag-Ox 400) 400 mg PO BID [facility] Last Admin: 04/13/18 10:15 Dose: 400 mg Metoprolol Tartrate (Lopressor (Beta Tommy)) 50 mg PO BID [facility] Last Admin: 04/13/18 10:16 Dose: 50 mg Nitrofurantoin Macrocrystals ([facility]bid) [facility]: 04/15/18 08:01 Last Admin: 04/13/18 10:16 Dose: 100 mg Ondansetron HCl (Zofran) 4 mg IV Q8H PRN PRN PRN Reason: NAUSEA Pantoprazole Sodium (Protonix) 40 mg PO DAILY [facility] Last Admin: 04/13/18 10:12 Dose: 40 mg Phenazopyridine HCl (Azo Standard) [facility] [place] Admin: 04/13/18 10:15 Dose: 190 mg Potassium Chloride (K-Dur) [facility] Last Admin: 04/13/18 10:14 Dose: 20 meq Prednisone () 40 mg PO DAILY@0800 [facility] Last Admin: 04/13/18 10:15 Dose: 40 mg Rivaroxaban (Xarelto) 15 mg PO DAILY@1700 [facility] Last Admin: 04/12/18 18:41 Dose: 15 mg Sodium Chloride () 5 - 15 ml IV UD PRN PRN Reason: SALINE FLUSH Last Admin: 04/12/18 09:41 Dose: 10 ml Medical Necessity - Tobacco Use Smoking Status: Former smoker Tobacco Use: Non-smoker Assessment/Plan All Active Problems (Last Updated 04/10/18 @ 19:24 by Nicanor Hoyt DO) UTI (urinary tract infection) (Acute) Metabolic encephalopathy (Acute) Diastolic CHF (Resolved) Ulcer of left lower extremity with fat layer exposed (Resolved) 1. Acute cystitis due to ESBL Klebsiella. currently on Macrobid stable. Will monitor 2. Influenza A infection: on tamiflu 3. Acute hxpoxic respiratory insufficiency likely due to history of HFpEF, bronchial hyperreactivity from Influenza A and history of smoking still has coarse crackles in mid and lower lung gallegos; requiring 2L of oxygen as saturation goes down to 87% on room air. BNP was 293, therefore there will be a contributory element of CHF exacerbation she is in positive balance of 2.23 L since admission. will hold PO lasix and start IV lasix 40mg bid. 4. Metabolic encephalopathy due to cystitis and influenza back to baseline mentation 5. CAD: Stable. 6. A. fib: On amiodarone and metoprolol. On xarelto 7. Acute on chronic diastolic heart failure: #3. DVT prophylaxis: On Xarelto. Code Visit Inpatient E&M: 58795 Subs Hosp L3
--- NOTE | 2018-04-13 12:13 | ECHOD_ITS ---
Reason For Study: Dyspnea/SOB Procedure This was a 2D Doppler, Color Flow transthoracic echocardiogram. Technicaly difficult due to patient body habitus. Patient could not tolerate the probe touching her skin. Exam performed portable in patient room. Left Ventricle Normal LV size. Left ventricular systolic function is normal. The estimated ejection fraction is 65 %. Stage 1 diastolic dysfunction. No regional wall motion abnormalities noted. Right Ventricle Normal RV size. Normal systolic function. Atria The left atrium is moderately enlarged. Normal right atrium. Mitral Valve Normal mitral valve. Tricuspid Valve Normal tricuspid valve. Aortic Valve Trisinus/trileaflet aortic valve. Mild (1+) eccentric aortic valve insufficiency. Pulmonic Valve Normal pulmonic valve. Great Vessels Normal aortic root. The pulmonary artery is normal size. Normal inferior vena cava. Pericardium/Pleural No pericardial effusion. MMode/2D Measurements & Calculations LVIDd: 4.6 cm IVSd: 1.2 cm Ao root diam: 3.2 cm LVIDs: 2.5 cm LVPWd: 1.1 cm LA dimension: 3.9 cm FS: 46.2 % LAV(MOD-sp4): 86.7 ml LA A4 area: 26.6 cm2 Time Measurements MV dec time: 0.25 sec Doppler Measurements & Calculations MV E max landon: 79.3 cm/sec Lat Peak E' Landon: 5.8 cm/sec Med Peak E' Landon: 4.5 cm/sec MV A max landon: 94.0 cm/sec E/E' lat: 13.6 E/E' med: 17.5 MV E/A: 0.84 MV V2 max: 103.0 cm/sec MV P1/2t max landon: 98.2 cm/sec Ao V2 max: 140.6 cm/sec MV max P.2 mmHg MV P1/2t: 72.6 msec Ao max P.9 mmHg MV V2 mean: 59.4 cm/sec MV dec slope: 396.2 cm/sec2 Ao V2 mean: 96.5 cm/sec MV mean P.6 mmHg MVA(P1/2t): 3.0 cm2 Ao mean P.1 mmHg MV V2 VTI: 31.5 cm Ao V2 VTI: 28.8 cm AI max landon: 407.7 cm/sec LV V1 max: 146.7 cm/sec PA V2 max: 131.0 cm/sec AI max P.5 mmHg LV V1 max P.6 mmHg LV V1 mean P.9 mmHg AI dec slope: 207.1 cm/sec2 LV V1 mean: 89.0 cm/sec AI P1/2t: 576.6 msec LV V1 VTI: 34.3 cm Interpretation Summary Normal LV size. Left ventricular systolic function is normal. The estimated ejection fraction is 65 %. Stage 1 diastolic dysfunction. The left atrium is moderately enlarged. Ordering Physician: Yolis Madsen Referring Physician: Douglas Bowman Performed By: Amos Barker RCS
--- NOTE | 2018-04-13 12:26 | PN_ITS ---
Patient Problems: Active and Suspected Problems (Last Updated 04/10/18 @ 19:24 by Nicanor Hoyt DO) UTI (urinary tract infection) (Acute) Metabolic encephalopathy (Acute) Subjective: Patient seen and examined. She complains of feeling bored in the hospital and wants to go home. She denies any fever chills or shortness of breath though she remains on 2 L of oxygen and she is not on oxygen. She denies any chest pain or palpitations, dizziness, abdominal pain, diarrhea vomiting. Review of systems otherwise negative. Labs and vitals reviewed. Vitals/I&O's: Vital Signs Temp Pulse Resp BP Pulse Ox 98.4 F 73 20 H 109/59 L 94 04/13/18 10:22 04/13/18 10:22 04/13/18 10:22 04/13/18 10:22 04/13/18 10:22 Oxygen Flow Rate (L/min) [ 2 AMBULATION with Oxygen] Oxygen Flow Rate (L/min) 2 Oxygen Delivery Method Nasal Cannula Weight: 205 lb 0.478 oz Body Mass Index (BMI) 40.0 Finger Stick Blood Glucose 187 Intake and Output for Last 24 Hours 04/11/18 04/12/18 04/13/18 23:59 23:59 23:59 Intake Total 500 / 500 1300 / 1300 540 / 540 Output Total 300 / 300 200 / 200 Balance 200 / 200 1100 / 1100 540 / 540 General: Alert, Oriented x3, Cooperative, No apparent distress HEENT: Atraumatic, PERRLA, EOMI, Normocephalic Neck: Supple, No JVD, Negative Carotid Bruits Lungs: - - fine crackles in mid and lower lung gallegos bilaterally, no wheezes Cardiovascular: Regular rate, Regular Rhythm, Normal S1, Normal S2, No murmurs Abdomen: Bowel Sounds Present, Soft, Non Tender, Non-Distended, No Hepato- splenomegaly Extremities: No clubbing, No cyanosis, No edema, Capillary Refill Less than 3 Seconds Skin: No rashes, No breakdown Musculoskeletal: No Tenderness to Palpation of Joints or Extremities Lymphatic: No Cervical, Supraclavicular, or Inguinal Adenopathy Neurological: Cranial nerves II-XII grossly intact, Neuro grossly intact, Motor Exam 5/5 strength throughout Psych/Mental Status: Normal Affect, Appropriate, Alert and oriented to time, place, person, mood and affect Microbiology Past 72 Hours 04/09/18 12:40 Urine Catheter - Catheter Urine Culture - Final Klebsiella pneumoniae sp pneum 04/09/18 14:19 Blood Culture (Wb) - Anticubital Right Blood Culture - Preliminary No growth in 48 hours. 04/09/18 16:23 Mucosa - Nasopharyngeal Influenza Types A,B Direct FA ([place]) - Final Influenzae A Laboratory Results 04/13/18 07:12: Sodium 141, Potassium 4.2, Chloride 101, Carbon Dioxide 31.0, Anion Gap 9, BUN 39 H, Creatinine 1.40 H, Estim Creat Clear Calc 25.32, Est GFR (MDRD) Af Amer 47 L, Est GFR (MDRD) Non-Af 39 L, BUN/Creatinine Ratio 27.9 H, Glucose 138 H, Calcium 9.1 Current Medications Acetaminophen (Tylenol) 650 mg PO Q6H PRN PRN PRN Reason: PAIN Last Admin: 04/13/18 10:16 Dose: 650 mg Albuterol Sulfate (Ventolin Aerosols) 2.5 mg INHALATION Q2H PRN PRN PRN Reason: SHORTNESS OF BREATH Last Admin: 04/10/18 21:46 Dose: 2.5 mg Albuterol/Ipratropium (Duoneb) 3 ml INHALATION Q4H.RT [facility] Last Admin: 04/13/18 11:31 Dose: 3 ml Amiodarone HCl (Cordarone) 200 mg PO DAILY@0800 [facility] Last Admin: 04/13/18 10:12 Dose: 200 mg Duloxetine HCl (Cymbalta) 60 mg PO DAILY [facility] Last Admin: 04/13/18 10:14 Dose: 60 mg Furosemide (Lasix) 60 mg PO BID@1000,1800 [facility] Last Admin: 04/13/18 10:13 Dose: 60 mg Guaifenesin (Mucinex) 600 mg PO BID [facility] Last Admin: 04/13/18 10:15 Dose: 600 mg Magnesium Hydroxide (Milk Of Magnesia) 30 ml PO DAILY PRN PRN PRN Reason: Constipation Magnesium Oxide (Mag-Ox 400) 400 mg PO BID [facility] Last Admin: 04/13/18 10:15 Dose: 400 mg Metoprolol Tartrate (Lopressor (Beta Tommy)) 50 mg PO BID [facility] Last Admin: 04/13/18 10:16 Dose: 50 mg Nitrofurantoin Macrocrystals ([facility]robid) [facility] Stop: 04/15/18 08:01 Last Admin: 04/13/18 10:16 Dose: 100 mg Ondansetron HCl (Zofran) 4 mg IV Q8H PRN PRN PRN Reason: NAUSEA Pantoprazole Sodium (Protonix) 40 mg PO DAILY [facility] Last Admin: 04/13/18 10:12 Dose: 40 mg Phenazopyridine HCl (Azo Standard) [facility] Last Admin: 04/13/18 10:15 Dose: 190 mg Potassium Chloride (K-Dur) 20 meq PO BIDCM [facility] Last Admin: 04/13/18 10:14 Dose: 20 meq Prednisone () 40 mg PO DAILY@0800 [facility] Last Admin: 04/13/18 10:15 Dose: 40 mg Rivaroxaban (Xarelto) 15 mg PO DAILY@1700 [facility] Last Admin: 04/12/18 18:41 Dose: 15 mg Sodium Chloride () 5 - 15 ml IV UD PRN PRN Reason: SALINE FLUSH Last Admin: 04/12/18 09:41 Dose: 10 ml Medical Necessity - Tobacco Use Smoking Status: Former smoker Tobacco Use: Non-smoker Assessment/Plan All Active Problems (Last Updated 04/10/18 @ 19:24 by Nicanor Hoyt DO) UTI (urinary tract infection) (Acute) Metabolic encephalopathy (Acute) Diastolic CHF (Resolved) Ulcer of left lower extremity with fat layer exposed (Resolved) 1. Acute cystitis * due to ESBL Klebsiella. * currently on Macrobid * stable. Will monitor * 2. Influenza A infection: on tamiflu 3. Acute hxpoxic respiratory insufficiency * likely due to history of HFpEF, bronchial hyperreactivity from Influenza A and history of smoking * still has coarse crackles in mid and lower lung gallegos; requiring 2L of oxygen as saturation goes down to 87% on room air. * BNP was 293, therefore there will be a contributory element of CHF exacerbation * she is in positive balance of 2.23 L since admission. * will hold PO lasix and start IV lasix 40mg bid. * 4. Metabolic encephalopathy due to cystitis and influenza * back to baseline mentation * 5. CAD: Stable. 6. A. fib: On amiodarone and metoprolol. On xarelto 7. Acute on chronic diastolic heart failure: #3. DVT prophylaxis: On Xarelto. Code Visit Inpatient E&M: 54430 Subs Hosp L3
--- NOTE | 2018-04-13 12:26 | NURSING ---
Per CPS, pt had nose bleed. THis nurse in to see pt, pt said when she coughed and blew her nose there was some blood that came out of her nose. C/O BATEMAN also. Tylenol recently given. New order for Motrin obtained. Dr. Madsen ordered ECHO but she was made aware that ECHO is gone for the day.
[2018-04-13] MEDS: Ibuprofen 400 MG Tablet PO ×2 (13:49→22:48)
--- NOTE | 2018-04-13 14:41 | NURSING ---
Pino wraps applied to BLE per Dr. Madsen request and restarted IV access per Dr. Madsen request for wanting pt to have lasix IV.
[2018-04-13] MEDS: Rivaroxaban 15 MG Tablet PO (18:53)
[2018-04-13] MEDS: Furosemide 40 MG/4 ML Vial IV (18:53)
[2018-04-14] VITALS (14 sets, daily range): BP systolic 107–158; BP diastolic 46–72; PULSE 61–76; RESP 16–20; TEMP 36.6–36.8; O2SAT 83–94
[2018-04-14 07:03] LABS: Hematocrit 38.3 % (37-47); Hemoglobin 10.8 g/dl (12.0-15.0); Mean Corp Hgb Conc 28.2 g/gl (32-36); Mean Corpuscular Hgb 25.7 pg (27.0-32.0); Mean Platelet Vol. 10.6 fl (6.2-12.0); Platelet Count 244 K/mm3 (150-450); RBC Distribution Width CV 19.6 % (11.6-14.6); RBC Distribution Width SD 63.4 fl (35.1-43.9); Red Blood Count 4.21 M/mm3 (4.2-5.4); White Blood Count 8.3 K/mm3 (4.4-11.0)
[2018-04-14 07:05] LABS: Differential Indicated MANUAL DIFF; POSITIVE COUNT YES; POSITIVE DIFFERENTIAL NO; POSITIVE MORPHOLOGY YES
[2018-04-14 07:06] LABS: BUN 37 mg/dL (7-18); Creatinine, Serum 1.36 mg/dL (0.55-1.02); EST Glomerular Filtration Rate 40 mL/min (>60); Estimated Creatinine Clearance 26.07 ml/min; Glucose 120 mg/dL (74-106)
[2018-04-14 07:07] LABS: Anion Gap 8 (5-15); BUN/Creat Ratio 27.2 RATIO (10-20); Calcium,Total 9.2 mg/dL (8.5-10.1); Chloride 100 mmol/L (98-107); Est Glom Filt Rate - Afr Amer 49 mL/min (>60); Potassium 4.2 mmol/L (3.5-5.1); Sodium Level 142 mmol/L (136-145)
[2018-04-14 07:33] LABS: Lymphocyte 21 % (19-41); Monocyte 1 % (0-10); Neutrophil-Band 1 % (0-5); Neutrophil-Segmented 77 % (47-70); Platelet Estimate ADEQUATE (ADEQ); Total Cells Counted 100 (MANUAL DIFF)
[2018-04-14 07:34] LABS: Anisocytosis 1+; Hypochromasia 1+; Microcytosis 1+
[2018-04-14 07:35] LABS: Polychromasia RARE
[2018-04-14 07:36] LABS: Absolute Lymphocyte Count 1.74 X10^3/ul (0.83-4.51); Absolute Neutrophil Count 6.5 X10^3/uL (2.0-7.7)
[2018-04-14] MEDS: Ipratropium/Albuterol Sulfate 3 ML AMPUL.NEB INHALATION ×4 (07:43→19:34)
[2018-04-14] MEDS: predniSONE 20 MG Tablet 40 MG PO (09:48)
[2018-04-14] MEDS: Nitrofurantoin Macrocrystals 100 MG Capsule PO ×2 (09:48→17:53)
[2018-04-14] MEDS: Phenazopyridine 95 MG Tablet 190 MG PO ×3 (09:48→17:53)
[2018-04-14] MEDS: Amiodarone 200 MG Tablet PO (09:48)
[2018-04-14] MEDS: Magnesium Oxide 400 MG Tablet PO ×2 (09:50→21:48)
[2018-04-14] MEDS: DULoxetine Hcl 60 MG Capsule PO (09:50)
[2018-04-14] MEDS: Pantoprazole Sodium 40 MG Tablet PO (09:51)
[2018-04-14] MEDS: guaiFENesin 600 MG Tablet PO ×2 (09:51→21:48)
[2018-04-14] MEDS: Ibuprofen 400 MG Tablet PO (09:51)
--- NOTE | 2018-04-14 10:20 | NURSING ---
pt refusing lasix. Dr. Madsen wanted this nurse to walk pt without oxygen. This nurse took o2 off and spo2 on RA just at rest was 84% so this nurse did not walk her. This nurse did text via [place] Dr. Madsen about both.
--- NOTE | 2018-04-14 10:27 | CT_ITS ---
STUDY: CT CHEST WITHOUT CONTRAST REASON FOR EXAM: Female, 73 years old. Wheezing RADIATION DOSAGE (If Supplied By Facility): CTDIvol = ( 24.18 ) mGy, DLP = ( 739.63 ) mGycm TECHNIQUE: Transaxial imaging was performed without the administration of intravenous contrast material. Multiplanar coronal and sagittal images were reformatted. Individualized dose optimization techniques were used for this CT. COMPARISON: CT from 01/08/2011 FINDINGS: Supine imaging only. Mild degree of central, cylindrical bronchiectasis involving predominantly the middle and lower lung zones. No subpleural honeycombing or cyst formation identified. No micronodularity or tree-in-bud abnormality. Thick parenchymal bands of the left lower lobe identified but no airspace consolidation. The parenchymal and is in region of prior consolidation on CT from 2010. No endobronchial lesions are seen. There is no demonstrated pleural abnormality. Normal heart and pericardium. Sternal wires and mediastinal surgical clips compatible with prior CABG. Normal mediastinum. Normal hilar regions. Normal unenhanced pulmonary arteries. There is atherosclerotic calcification of the aortic arch with tortuosity and elongation of the aortic arch and descending thoracic aorta. There are multi-level degenerative changes of the thoracic spine. There is no demonstrated abnormality of the visualized upper abdomen. CT/Chest without Contrast IMPRESSION: 1. No significant interstitial lung disease or honeycombing identified. 2. Left lower lobe fibrotic parenchymal bands in the region of prior consolidation prior CT (2010). 3. Mild bronchiectasis. 4. Atherosclerosis. CABG. Electronically Signed: Kyle Ba MD at 14:11 EDT , Service support ,
[2018-04-14] MEDS: Furosemide 40 MG/4 ML Vial IV ×2 (12:47→17:54)
[2018-04-14] MEDS: Metoprolol Tartrate 50 MG Tablet PO ×2 (12:54→21:48)
--- NOTE | 2018-04-14 14:03 | PCM.PN.HOSP ---
Patient Problems: Active and Suspected Problems (Last Updated 04/10/18 @ 19:24 by Nicanor Hoyt DO) UTI (urinary tract infection) (Acute) Metabolic encephalopathy (Acute) Subjective: Patient seen and examined. She has no complaints and denies any fever, chills, cough or chest pain, palpitations, diarrhea vomiting. Patient still remains short of breath and is on 2 L of oxygen. Attempts to wean patient off oxygen which resulted in a desaturating to 81% just at rest. Patient is being diuresed with IV Lasix but has been refusing to take the Lasix because she states she urinates too much. At the same time she refuses to allow for passage of [place] catheter. Labs and vitals reviewed. Vitals/I&O's: Vital Signs Temp Pulse Resp BP Pulse Ox 98.3 F 67 20 H 158/63 H 92 04/14/18 13:14 04/14/18 13:14 04/14/18 13:14 04/14/18 13:14 04/14/18 13:14 Oxygen Flow Rate (L/min) [ 2 AMBULATION with Oxygen] Oxygen Flow Rate (L/min) 3.5 Oxygen Delivery Method Nasal Cannula Weight: 205 lb 0.478 oz Body Mass Index (BMI) 40.0 Finger Stick Blood Glucose 187 Intake and Output for Last 24 Hours 04/12/18 04/13/18 04/15/18 23:59 23:59 00:59 Intake Total 1300 / 1300 1740 / 1740 200 / 200 Output Total 200 / 200 Balance 1100 / 1100 1740 / 1740 200 / 200 General: Alert, Oriented x3, Cooperative, No apparent distress HEENT: Atraumatic, PERRLA, EOMI, Normocephalic Neck: Supple, No JVD, Negative Carotid Bruits Lungs: - - fine crackles in mid and lower lung gallegos bilaterally, no wheezes; on 2L of oxygen Cardiovascular: Regular rate, Regular Rhythm, Normal S1, Normal S2, No murmurs Abdomen: Bowel Sounds Present, Soft, Non Tender, Non-Distended, No Hepato-splenomegaly Extremities: No clubbing, No cyanosis, No edema, Capillary Refill Less than 3 Seconds Skin: No rashes, No breakdown Musculoskeletal: No Tenderness to Palpation of Joints or Extremities Lymphatic: No Cervical, Supraclavicular, or Inguinal Adenopathy Neurological: Cranial nerves II-XII grossly intact, Neuro grossly intact, Motor Exam 5/5 strength throughout Psych/Mental Status: Normal Affect, Appropriate, Alert and oriented to time, place, person, mood and affect Microbiology Past 72 Hours 04/09/18 12:40 Urine Catheter - Catheter Urine Culture - Final Klebsiella pneumoniae sp pneum 04/09/18 14:19 Blood Culture (Wb) - Anticubital Right Blood Culture - Preliminary No growth in 48 hours. Laboratory Results 04/14/18 06:00: Sodium 142, Potassium 4.2, Chloride 100, Carbon Dioxide 34.0 H, Anion Gap 8, BUN 37 H, Creatinine 1.36 H, Estim Creat Clear Calc 26.07, Est GFR (MDRD) Af Amer 49 L, Est GFR (MDRD) Non-Af 40 L, BUN/Creatinine Ratio 27.2 H, Glucose 120 H, Calcium 9.2 04/14/18 06:00: WBC 8.3, RBC 4.21, Hgb 10.8 L, Hct 38.3, MCV 91.0, MCH 25.7 L, MCHC 28.2 L, RDW 19.6 H, RDW Differential 63.4 H, Plt Count 244, MPV 10.6, Neut % (Auto) Not Reportable, Absolute Neuts (auto) 6.5, Absolute Lymphs (auto) 1.74, Total Counted 100, Neutrophils % (Manual) 77 H, Band Neutrophils % 1, Lymphocytes % (Manual) 21, Monocytes % (Manual) 1, Diff Path Review May foll, Platelet Estimate ADEQUATE, Polychromasia RARE, Hypochromasia 1+, Anisocytosis 1+, Microcytosis 1+ Diagnostic Data Chest X-Ray 04/12/18 13:15 IMPRESSION: No acute cardiopulmonary process. Electronically Signed: Krunal Khan MD at 15:24 EST Tel , Service support , Chest CT 04/14/18 10:27 IMPRESSION: 1. No significant interstitial lung disease or honeycombing identified. 2. Left lower lobe fibrotic parenchymal bands in the region of prior consolidation prior CT (2010). 3. Mild bronchiectasis. 4. Atherosclerosis. CABG. Electronically Signed: Kyle Ba MD at 14:11 EDT , Service support , Current Medications Acetaminophen (Tylenol) 650 mg PO Q6H PRN PRN PRN Reason: PAIN Last Admin: 04/13/18 10:16 Dose: 650 mg Albuterol Sulfate (Ventolin Aerosols) 2.5 mg INHALATION Q2H PRN PRN PRN Reason: SHORTNESS OF BREATH Last Admin: 04/10/18 21:46 Dose: 2.5 mg Albuterol/Ipratropium (Duoneb) 3 ml INHALATION Q4H.RT [facility] Last Admin: 04/14/18 11:18 Dose: 3 ml Amiodarone HCl (Cordarone) 200 mg PO DAILY@0800 [facility] Last Admin: 04/14/18 09:48 Dose: 200 mg Duloxetine HCl (Cymbalta) 60 mg PO DAILY [facility] Last Admin: 04/14/18 09:50 Dose: 60 mg Furosemide (Lasix) 40 mg IV BID@1000,1800 [facility] Last Admin: 04/14/18 12:47 Dose: 40 mg Guaifenesin (Mucinex) 600 mg PO BID [facility] Last Admin: 04/14/18 09:51 Dose: 600 mg Ibuprofen (Motrin) 400 mg PO Q6 PRN PRN Reason: PAIN Last Admin: 04/14/18 09:51 Dose: 400 mg Magnesium Hydroxide (Milk Of Magnesia) 30 ml PO DAILY PRN PRN PRN Reason: Constipation Magnesium Oxide (Mag-Ox 400) 400 mg PO BID [facility] Last Admin: 04/14/18 09:50 Dose: 400 mg Metoprolol Tartrate (Lopressor (Beta Tommy)) 50 mg PO BID [facility] Last Admin: 04/14/18 12:54 Dose: 50 mg Nitrofurantoin Macrocrystals (Macrobid) [facility] Stop: 04/15/18 08:01 Last Admin: 04/14/18 09:48 Dose: 100 mg Ondansetron HCl (Zofran) 4 mg IV Q8H PRN PRN PRN Reason: NAUSEA Pantoprazole Sodium (Protonix) 40 mg PO DAILY [facility] Last Admin: 04/14/18 09:51 Dose: 40 mg Phenazopyridine HCl (Azo Standard) 190 mg PO TIDCM [facility] Last Admin: 04/14/18 12:56 Dose: 190 mg Potassium Chloride (K-Dur) 20 meq PO BIDCM [facility] Last Admin: 04/14/18 09:50 Dose: 20 meq Prednisone () 40 mg PO DAILY@0800 [facility] Last Admin: 04/14/18 09:48 Dose: 40 mg Rivaroxaban (Xarelto) 15 mg PO DAILY@1700 [facility] Last Admin: 04/13/18 18:53 Dose: 15 mg Sodium Chloride () 5 - 15 ml IV UD PRN PRN Reason: SALINE FLUSH Last Admin: 04/12/18 09:41 Dose: 10 ml Medical Necessity - Tobacco Use Smoking Status: Former smoker Tobacco Use: Non-smoker Assessment/Plan All Active Problems (Last Updated 04/10/18 @ 19:24 by Nicanor Hoyt DO) UTI (urinary tract infection) (Acute) Metabolic encephalopathy (Acute) Diastolic CHF (Resolved) Ulcer of left lower extremity with fat layer exposed (Resolved) 1. Acute cystitis due to ESBL Klebsiella. currently on Macrobid stable. Will monitor 2. Influenza A infection: on tamiflu 3. Acute hxpoxic respiratory insufficiency likely due to history of HFpEF, bronchial hyperreactivity from Influenza A and history of smoking still remains very short of breath, and was saturating at 81% on room air at rest was refusing lasix; counselled patient about need for lasix. CT chest showed no intersitial lung idsease or honeycombin gidentified; left lower lobe fibrotic parenchymal lungs in the area of prior consolidation prior CT from 2010, and mild bronchiectasis. it is likely patient will need oxygen at home to continue diuresing with IV lasix will get pulmo consult encourage incentive spirometry use; on Aerobika 4. Metabolic encephalopathy due to cystitis and influenza resolved. 5. CAD: Stable. 6. A. fib: On amiodarone and metoprolol. On xarelto 7. Acute on chronic diastolic heart failure: as under 3. DVT prophylaxis: On Xarelto. Code Visit Inpatient E&M: 24442 Subs Hosp L3
[2018-04-14] MEDS: Rivaroxaban 15 MG Tablet PO (17:53)
[2018-04-14] MEDS: 0.9% NaCl Peripheral Flush Adult/Peds IV (17:54)
[2018-04-15] VITALS (12 sets, daily range): BP systolic 132–157; BP diastolic 54–109; PULSE 63–83; RESP 16–18; TEMP 36.4–36.7; O2SAT 88–96
[2018-04-15 06:47] LABS: Anion Gap 10 (5-15); BUN 40 mg/dL (7-18); Calcium,Total 9.2 mg/dL (8.5-10.1); Chloride 98 mmol/L (98-107); Creatinine, Serum 1.25 mg/dL (0.55-1.02); EST Glomerular Filtration Rate 45 mL/min (>60); Est Glom Filt Rate - Afr Amer 54 mL/min (>60); Estimated Creatinine Clearance 28.36 ml/min; Glucose 128 mg/dL (74-106); Potassium 4.4 mmol/L (3.5-5.1); Sodium Level 142 mmol/L (136-145)
[2018-04-15] MEDS: Ipratropium/Albuterol Sulfate 3 ML AMPUL.NEB INHALATION ×4 (07:41→19:25)
--- NOTE | 2018-04-15 07:46 | PCM.CONS.GEN ---
Reason for Consult Date of Consultation: 04/15/18 Reason for Consultation: Acute hypoxic respiratory insufficiency History of Present Illness: The patient is a 73-year-old female, with a history as outlined below, who presented to the emergency department initially on April 09 with complaints of altered mentation. The patient had reportedly sustained a mechanical fall in her home environment. She is chronically anticoagulated on Xarelto due to a history of atrial fibrillation. The patient was identified as having a urinary tract infection and was placed on antibiotics. She was subsequently admitted to the medical surgical floor. On presentation to the emergency department, the patient was noted to be afebrile and hemodynamically stable. She was initially hypoxic requiring 2 L/min of supplemental oxygen. Laboratory evaluation at that time revealed no evidence of a leukocytosis. Chemistry profile revealed evidence of acute on chronic kidney disease. Troponin was negative. BNP was elevated to 293. Plain film chest x-ray revealed only evidence of pulmonary vascular congestion. The patient's hospital course was complicated by the subsequent diagnosis of influenza A. She is currently on antibiotics for an identified Klebsiella pneumonia he urinary tract source of infection. She is also on treatment with Tamiflu. Surface echocardiogram from June 2017 revealed normal LV size and function with an ejection fraction of 65%. Right ventricular systolic pressure was estimated to be 39 mmHg. The patient has not been able to be weaned from supplemental oxygen throughout her hospital course. A CT chest without contrast was completed on April 14 and revealed mild degree of bronchiectasis along with left lower lobe fibrotic changes. The patient has been diuresed as well throughout her hospital course. This morning, the patient does report a mild degree of shortness of breath. She continues to have a cough and does report chest tightness and wheezing. She has never been evaluated by a radio station audio engineer on an outpatient basis previously. She has never undergone pulmonary function testing. She does have a 55-ftac-mumc smoking history, having quit completely in 1990. She does not utilize inhalers at her baseline, nor is she oxygen dependent in her home environment. Past Medical History Past Medical History (Chronic Problems): Chronic Problems (Last Updated 04/10/18 @ 19:24 by Nicanor Hoyt DO) Bilateral lower extremity edema (Chronic) Cognitive impairment (Chronic) patient is confused at times Iron deficiency anemia (Chronic) etiology unknown PVD (peripheral vascular disease) (Chronic) Controlled diabetes mellitus (Chronic) Edema, lower extremity (Chronic) Presence of stent in coronary artery (Chronic) PTCA/stent to CX; PTCA/Stent PTCA/stent to prox RCA 05/06; PTCA/LILY in mid to distal RCA 08/29/12 Atherosclerotic heart disease of [place] coronary artery without angina pectoris (Chronic) PTCA/stent to CX; PTCA/Stent PTCA/stent to prox RCA 05/06; PTCA/LILY in mid to distal RCA 08/29/12; CABG x2 ARREGUIN tp LAD and SVG to OM2 01/02/11 S/P CABG (coronary artery bypass graft) (Chronic ~01/02/11) CABG x2 ARREGUIN tp LAD and SVG to OM2 01/02/11 Paroxysmal atrial fibrillation (Chronic) Hyperlipidemia (Chronic) Hypertension (Chronic) Medical History: Medical History (Last Updated 04/10/18 @ 19:24 by Nicanor Hoyt DO) Diastolic CHF (Resolved) I50.30 Cognitive impairment (Chronic) R41.89 patient is confused at times Iron deficiency anemia (Chronic) D50.9 etiology unknown Ulcer of right lower extremity with fat layer exposed (Inactive) L97.912 Ulcer of right foot with fat layer exposed (Inactive) L97.512 Ulcer of left lower extremity with fat layer exposed (Inactive) L97.922 PVD (peripheral vascular disease) (Chronic) I73.9 Ulcer of left lower extremity with fat layer exposed (Resolved) L97.922 Controlled diabetes mellitus (Chronic) E11.9 Edema, lower extremity (Chronic) R60.0 Atherosclerotic heart disease of [place] coronary artery without angina pectoris (Chronic) I25.10 PTCA/stent to CX; PTCA/Stent PTCA/stent to prox RCA 05/06; PTCA/LILY in mid to distal RCA 08/29/12; CABG x2 ARREGUIN tp LAD and SVG to OM2 01/02/11 Paroxysmal atrial fibrillation (Chronic) I48.0 Hyperlipidemia (Chronic) E78.5 Hypertension (Chronic) I10 Acute cystitis N30.00 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 Cellulitis L03.90 Diabetic ulcer of both lower extremities E11.622, L97.919, L97.929 History of DVT (deep vein thrombosis) Z86.718 Multiple sclerosis G35 Severe sepsis A41.9, R65.20 Trigeminal neuralgia G50.0 Type 2 diabetes mellitus E11.9 LAURITA (obstructive sleep apnea) G47.33 Peripheral vascular disease I73.9 Venous insufficiency of both lower extremities I87.2 Cellulitis of right leg L03.115 Allergies codeine Allergy (Unknown, Verified 04/09/18 14:34) Hives ciprofloxacin [From Cipro] Allergy (Verified 04/09/18 12:44) Hives ciprofloxacin HCl [From Cipro] Allergy (Verified 04/09/18 12:44) Hives Latex, Natural Rubber Allergy (Verified 04/09/18 12:44) Rash Penicillins [PCN] Allergy (Verified 04/09/18 12:44) Hives adhesive tape Adverse Reaction (Verified 04/09/18 12:44) Rash Home Medications: Ambulatory Orders Medication Instructions Recorded Acetaminophen [Tylenol] 650 mg PO Q6H PRN 04/09/18 Amiodarone HCl 200 mg PO DAILY 04/09/18 Duloxetine HCl 60 mg PO DAILY 04/09/18 Furosemide [Lasix] 40 mg PO BIDLX 04/09/18 Gabapentin [Neurontin] 300 mg PO QHS 04/09/18 Iron Polysaccharide Complex 150 mg PO DAILY 04/09/18 [Ferrex 150] Magnesium Oxide [Mag-Ox 400] 400 mg PO BID 04/09/18 Metoprolol Tartrate [Lopressor 50 mg PO BID 04/09/18 (beta man)] Pantoprazole Sodium [Protonix] 40 mg PO DAILY 04/09/18 Phenazopyridine [Pyridium] 200 mg PO TID PRN 04/09/18 Potassium Chloride [Klor-Con] 20 meq PO BID 04/09/18 Rivaroxaban [Xarelto] 15 mg PO DAILY 04/09/18 Nitrofurantoin Monohyd/M-Cryst 100 mg PO BID #10 capsule 04/12/18 [Macrobid 100 mg Capsule] Oseltamivir Phosphate [Tamiflu] 30 mg PO DAILY #7 capsule 04/12/18 Surgical History: Surgical History (Last Reviewed 04/09/18 @ 14:40 by Douglas Bowman DO) Presence of stent in coronary artery (Chronic) Z95.5 PTCA/stent to CX; PTCA/Stent PTCA/stent to prox RCA 05/06; PTCA/LILY in mid to distal RCA 08/29/12 S/P CABG (coronary artery bypass graft) (Chronic) Onset Date: ~01/02/11 Z95.1 CABG x2 ARREGUIN tp LAD and SVG to OM2 01/02/11 History of cataract surgery Z98.49 History of cholecystectomy Z98.890, Z90.49 History of hernia repair Z98.890, Z87.19 History of tonsillectomy and adenoidectomy Z98.890 History of total hysterectomy Z98.890, Z90.710 Postsurgical percutaneous transluminal coronary angioplasty (PTCA) status Z98.61 PTCA/stent to CX; PTCA/Stent PTCA/stent to prox RCA 05/06; PTCA/LILY in mid to distal RCA 08/29/12 Surgical History: angioplasty, appendectomy, cholecystectomy, coronary bypass surgery, hysterectomy, tonsillectomy, - - R ankle surgery with hardware. placement of stents (cardiac or lower extremity. patient is unsure). excision upper lip carcinoma. Incision and drainage and excisional debridement infected traumatic open hematoma wound right anterior leg (90 cm2) and incision and drainage and excisional debridement infected traumatic open hematoma wound left anterior leg (72 cm2) - 12/29/14. Lives: With Family Smoking Status: Former smoker Tobacco Use: Non-smoker Alcohol: None Drugs: None - *Family History Maternal Family History: Family History (Last Reviewed 04/09/18 @ 14:40 by Douglas Bowman DO) Father Heart disease Mother Hypertension Cancer Brother Diabetes Hypertension History Items: Heart Disease, Hypertension Paternal Family History: Family History (Last Reviewed 04/09/18 @ 14:40 by Douglas Bowman DO) Father Heart disease Mother Hypertension Cancer Brother Diabetes Hypertension History Items: Heart Disease, Hypertension, - - skin cancer. Sibling Family History: Family History (Last Reviewed 04/09/18 @ 14:40 by Douglas Bowman DO) Father Heart disease Mother Hypertension Cancer Brother Diabetes Hypertension History Items: Diabetes Review of Systems Constitutional: Reports: Malaise, Fatigue Eyes: Denies: Blurred vision, Double vision HEENT: Denies: Head Aches, Sinus Congestion, Sinus Drainage Cardiovascular: Reports: Chest Tightness Respiratory: Reports: Cough, Shortness of Breath, Wheezing Gastrointestinal: Denies: Abdominal Pain, Nausea, Vomiting Genitourinary: Denies: Dysuria Musculoskeletal: Denies: Joint Pain, Joint Tenderness Skin: Denies: Rash, Wounds Neurological: Denies: Numbness, Tingling, Focal weakness Psychiatric: Denies: Anxiety, Depression, Homicidal Ideations, Suicidal Ideations Hematologic/ Lymphatic: Denies: Easy Bruising, Easy Bleeding Patient Problems: Active and Suspected Problems (Last Updated 04/10/18 @ 19:24 by Nicanor Hoyt DO) UTI (urinary tract infection) (Acute) Metabolic encephalopathy (Acute) Objective: The patient's most recent lab work, culture data and imaging studies have all been personally reviewed. - Physical Exam General: Alert, Cooperative, No apparent distress, - - Sitting in bedside recliner HEENT: Atraumatic, PERRLA, Normocephalic Oral: No Gingival or Mucosal Lesions/ Ulcerations Neck: Supple, No Nodes, Trachea Midline Lungs: - - Lung gallegos are grossly clear bilaterally. The patient continues to have repeated paroxysms of coughing. Cardiovascular: Regular rate, Regular Rhythm, Normal S1, Normal S2, No murmurs Abdomen: Bowel Sounds Present, Soft, Non Tender, Non-Distended, Obese Extremities: No clubbing, No cyanosis, Edema, - - Wrapped lower extremities Skin: No breakdown Musculoskeletal: No Tenderness to Palpation of Joints or Extremities Lymphatic: No Cervical, Supraclavicular, or Inguinal Adenopathy Neurological: Cranial nerves II-XII grossly intact, Neuro grossly intact Psych/Mental Status: Alert and oriented to time, place, person, mood and affect Vital Signs Temp Pulse Resp BP Pulse Ox 36.7 C 63 18 157/86 H 96 04/15/18 01:50 04/15/18 01:50 04/15/18 01:50 04/15/18 01:50 04/15/18 01:50 Oxygen Flow Rate (L/min) [ 2 AMBULATION with Oxygen] Oxygen Flow Rate (L/min) 3 Oxygen Delivery Method Nasal Cannula Weight: 205 lb 0.478 oz Body Mass Index (BMI) 40.0 Finger Stick Blood Glucose 187 Intake and Output for Last 24 Hours 04/13/18 04/14/18 04/15/18 22:59 23:59 23:59 Intake Total Balance Microbiology Past 72 Hours 04/09/18 14:19 Blood Culture - Final Blood Culture (Wb) - Anticubital Right No growth in 5 days. 04/09/18 12:40 Urine Culture - Final Urine Catheter - Catheter Klebsiella pneumoniae sp pneum Laboratory Tests Past 24 Hrs 04/15/18 06:00 Sodium 142 Potassium 4.4 Chloride 98 Carbon Dioxide 34.0 H Anion Gap 10 BUN 40 H Creatinine 1.25 H Estim Creat Clear Calc 28.36 Est GFR (MDRD) Af Amer 54 L Est GFR (MDRD) Non-Af 45 L BUN/Creatinine Ratio 32.0 H Glucose 128 H Calcium 9.2 Clinical Impression(s) from Imaging Studies Chest X-Ray 04/09/18 09:46 IMPRESSION: Vascular congestion and mild CHF. Electronically Signed: Milo Hughes, at 10:23 EST , Service support , Chest X-Ray 04/12/18 13:15 IMPRESSION: No acute cardiopulmonary process. Electronically Signed: Krunal Khan MD at 15:24 EST Tel , Service support , Chest CT 04/14/18 10:27 IMPRESSION: 1. No significant interstitial lung disease or honeycombing identified. 2. Left lower lobe fibrotic parenchymal bands in the region of prior consolidation prior CT (2010). 3. Mild bronchiectasis. 4. Atherosclerosis. CABG. Electronically Signed: Kyle Ba MD at 14:11 EDT , Service support , Assessment/Plan All Active Problems (Last Updated 04/10/18 @ 19:24 by Nicanor Hoyt DO) UTI (urinary tract infection) (Acute) Metabolic encephalopathy (Acute) Diastolic CHF (Resolved) Ulcer of left lower extremity with fat layer exposed (Resolved) RECOMMENDATIONS: 1. Continue Tamiflu, bronchodilators and steroids as ordered. 2. Wean supplemental oxygen to maintain saturations at or above 90%. 3. Perform walking oximetry study prior to consideration for discharge from the hospital. 4. At discharge, the patient can be sent home with prednisone 40 mg daily times 5 days along with scheduled budesonide aerosols 0.5 mg twice daily. 5. I explained to the patient that she will likely have a supplemental oxygen requirement upon discharge. 6. Follow-up in the pulmonary medicine clinic within 2 weeks of her discharge. We will reassess her ongoing oxygen requirement at that time. 7. Will obtain baseline pulmonary function studies on an outpatient basis, once the patient's breathing quality has returned back to baseline. 8. De-escalate Lasix regimen, as the patient appears to be developing a contraction alkalosis. IMPRESSIONS: 1. Acute hypoxemic respiratory insufficiency Likely secondary to a component of decompensated heart failure with preserved ejection fraction, coupled with post viral bronchial hyperresponsiveness from the patient's influenza A infection. She does have a rather extensive prior smoking history, so I cannot discount the possibility of underlying obstructive lung disease. Her CT chest was personally reviewed and revealed no significant airspace consolidation or infiltrate. She did have some bronchiectasis. From my perspective, I think the patient's Lasix regimen can be decreased, as she does appear to have developed a contraction alkalosis. I agree with continuing scheduled bronchodilators and prednisone. The patient is already on treatment with Tamiflu. At the time of her discharge, she could be sent home with a 5-day course of prednisone 40 mg daily, along with scheduled budesonide 0.5 mg twice daily to help alleviate some of the patient's bronchial inflammation. I would also recommend that she have baseline PFTs completed, once her breathing quality has returned back to baseline. I would ask that the patient follow-up in the pulmonary medicine clinic within 2 weeks of her discharge from the hospital. At that time, we will plan to perform a repeat walking oximetry study to evaluate for the ongoing need for supplemental oxygen. 2. Klebsiella cystitis Continue anti-microbial treatment regimen, per hospitalist. This note was generated with [employer] software. It may contain incorrect words, spelling, and punctuation that were not noted in checking the note before signing. Code Visit Inpatient E&M: 16959 Init Hosp L2
[2018-04-15] MEDS: Amiodarone 200 MG Tablet PO (09:21)
[2018-04-15] MEDS: Pantoprazole Sodium 40 MG Tablet PO (09:21)
[2018-04-15] MEDS: DULoxetine Hcl 60 MG Capsule PO (09:21)
[2018-04-15] MEDS: Magnesium Oxide 400 MG Tablet PO ×2 (09:21→22:08)
[2018-04-15] MEDS: guaiFENesin 600 MG Tablet PO ×2 (09:21→22:08)
[2018-04-15] MEDS: Nitrofurantoin Macrocrystals 100 MG Capsule PO (09:21)
[2018-04-15] MEDS: Metoprolol Tartrate 50 MG Tablet PO ×2 (09:21→22:08)
[2018-04-15] MEDS: Phenazopyridine 95 MG Tablet 190 MG PO ×3 (09:22→17:02)
[2018-04-15] MEDS: Furosemide 40 MG/4 ML Vial IV (09:22)
[2018-04-15] MEDS: predniSONE 20 MG Tablet 40 MG PO (09:22)
--- NOTE | 2018-04-15 12:59 | PCM.PN.HOSP ---
Patient Problems: Active and Suspected Problems (Last Updated 04/10/18 @ 19:24 by Nicanor Hoyt DO) UTI (urinary tract infection) (Acute) Metabolic encephalopathy (Acute) Subjective: Patient seen and examined. She remains short of breath. She denies any fever, chills, cough, chest pain, abdominal pain, diarrhea or vomiting. She complains of lethargy. Pulmonology consulted o/a of persistent hypoxia. Review of systems is otherwise negative. Labs and vitals reviewed. Patient says she is too weak to go home, though she doesnt want to go to [facility]. Patient acquiesced to going to SNF after further counselling. Vitals/I&O's: Vital Signs Temp Pulse Resp BP Pulse Ox 97.8 F 79 16 144/85 H 88 04/15/18 07:50 04/15/18 11:14 04/15/18 11:14 04/15/18 09:21 04/15/18 09:36 Oxygen Flow Rate (L/min) [ 2 AMBULATION with Oxygen] Oxygen Flow Rate (L/min) 3 Oxygen Delivery Method Room Air Weight: 205 lb 0.478 oz Body Mass Index (BMI) 40.0 Finger Stick Blood Glucose 187 Intake and Output for Last 24 Hours 04/13/18 04/14/18 04/15/18 22:59 23:59 23:59 Intake Total Balance General: Alert, Oriented x3, Cooperative, Lethargic HEENT: Atraumatic, PERRLA, EOMI, Normocephalic Oral: Dry Mucosa Neck: Supple, No JVD, Negative Carotid Bruits Lungs: - - has diminished breath sounds and wheezing in all lung gallegos bilaterally. No crackles or rales. Cardiovascular: Regular rate, Regular Rhythm, Normal S1, Normal S2, No murmurs Abdomen: Bowel Sounds Present, Soft, Non Tender Extremities: No clubbing, No cyanosis, No edema, Capillary Refill Less than 3 Seconds Skin: No rashes, No breakdown Musculoskeletal: No Tenderness to Palpation of Joints or Extremities Lymphatic: No Cervical, Supraclavicular, or Inguinal Adenopathy Neurological: Cranial nerves II-XII grossly intact, Neuro grossly intact, Motor Exam 5/5 strength throughout Psych/Mental Status: Normal Affect, Appropriate, Alert and oriented to time, place, person, mood and affect Microbiology Past 72 Hours 04/09/18 14:19 Blood Culture (Wb) - Anticubital Right Blood Culture - Final No growth in 5 days. 04/09/18 12:40 Urine Catheter - Catheter Urine Culture - Final Klebsiella pneumoniae sp pneum Laboratory Results 04/15/18 06:00: Sodium 142, Potassium 4.4, Chloride 98, Carbon Dioxide 34.0 H, Anion Gap 10, BUN 40 H, Creatinine 1.25 H, Estim Creat Clear Calc 28.36, Est GFR (MDRD) Af Amer 54 L, Est GFR (MDRD) Non-Af 45 L, BUN/Creatinine Ratio 32.0 H, Glucose 128 H, Calcium 9.2 Current Medications Acetaminophen (Tylenol) 650 mg PO Q6H PRN PRN PRN Reason: PAIN Last Admin: 04/13/18 10:16 Dose: 650 mg Albuterol Sulfate (Ventolin Aerosols) 2.5 mg INHALATION Q2H PRN PRN PRN Reason: SHORTNESS OF BREATH Last Admin: 04/10/18 21:46 Dose: 2.5 mg Albuterol/Ipratropium (Duoneb) 3 ml INHALATION Q4H.RT [facility] Last Admin: 04/15/18 11:14 Dose: 3 ml Amiodarone HCl (Cordarone) 200 mg PO DAILY@0800 [facility] Last Admin: 04/15/18 09:21 Dose: 200 mg Duloxetine HCl (Cymbalta) 60 mg PO DAILY [facility] Last Admin: 04/15/18 09:21 Dose: 60 mg Furosemide (Lasix) 40 mg IV BID@1000,1800 [facility] Last Admin: 04/15/18 09:22 Dose: 40 mg Guaifenesin (Mucinex) 600 mg PO BID [facility] Last Admin: 04/15/18 09:21 Dose: 600 mg Ibuprofen (Motrin) 400 mg PO Q6 PRN PRN Reason: PAIN Last Admin: 04/14/18 09:51 Dose: 400 mg Magnesium Hydroxide (Milk Of Magnesia) 30 ml PO DAILY PRN PRN PRN Reason: Constipation Magnesium Oxide (Mag-Ox 400) 400 mg PO BID [facility] Last Admin: 04/15/18 09:21 Dose: 400 mg Metoprolol Tartrate (Lopressor (Beta Tommy)) 50 mg PO BID [facility] Last Admin: 04/15/18 09:21 Dose: 50 mg Ondansetron HCl (Zofran) 4 mg IV Q8H PRN PRN PRN Reason: NAUSEA Pantoprazole Sodium (Protonix) 40 mg PO DAILY [facility] Last Admin: 04/15/18 09:21 Dose: 40 mg Phenazopyridine HCl (Azo Standard) 190 mg PO TIDCM [facility] Last Admin: 04/15/18 11:43 Dose: 190 mg Potassium Chloride (K-Dur) 20 meq PO BIDCM [facility] Last Admin: 04/15/18 09:22 Dose: 20 meq Prednisone () 40 mg PO DAILY@0800 [facility] Last Admin: 04/15/18 09:22 Dose: 40 mg Rivaroxaban (Xarelto) 15 mg PO DAILY@1700 [facility] Last Admin: 04/14/18 17:53 Dose: 15 mg Sodium Chloride () 5 - 15 ml IV UD PRN PRN Reason: SALINE FLUSH Last Admin: 04/14/18 17:54 Dose: 10 ml Medical Necessity - Tobacco Use Smoking Status: Former smoker Tobacco Use: Non-smoker Assessment/Plan All Active Problems (Last Updated 04/10/18 @ 19:24 by Nicanor Hoyt DO) UTI (urinary tract infection) (Acute) Metabolic encephalopathy (Acute) Diastolic CHF (Resolved) Ulcer of left lower extremity with fat layer exposed (Resolved) 1. Acute cystitis due to ESBL Klebsiella. currently on Macrobid stable. Will monitor 2. Influenza A infection: on tamiflu 3. Acute hxpoxic respiratory insufficiency likely due to history of HFpEF, bronchial hyperreactivity from Influenza A and history of smoking still remains very short of breath, and was saturating at 81% on room air at rest being diuresed with IV lasix pulmo on board-think it is secondary to component of decompensated heart failure preserved ejection fraction coupled with post viral bronchial hyperresponsiveness from influenza A. Pulmonary recommends to continue steroids, with 5-day course of prednisone at discharge as well as scheduled budesonide to alleviate some of bronchial inflammation. To have baseline PFTs completed once a breathing quality returns to normal and follow-up with pulmonary. CT chest showed no intersitial lung idsease or honeycombing identified; left lower lobe fibrotic parenchymal lungs in the area of prior consolidation prior CT from 2010, and mild bronchiectasis. it is likely patient will need oxygen at home to continue diuresing with IV lasix encourage incentive spirometry use; on Aerobika 4. Metabolic encephalopathy due to cystitis and influenza resolved. 5. CAD: Stable. 6. A. fib: On amiodarone and metoprolol. On xarelto 7. Acute on chronic diastolic heart failure: as under 3. 8. CKD 3: Cr is 1.25. Will monitor 9. Metabolic alkalosis: Bicarb is up to 34. Likely contraction alkalosis from Lasix. Will cut down on Lasix. DVT prophylaxis: On Xarelto. Disposition: patient now wants to go to SNF. Case Management on board. Code Visit Inpatient E&M: 15924 Subs Hosp L3
--- NOTE | 2018-04-15 13:12 | PN_ITS ---
Patient Problems: Active and Suspected Problems (Last Updated 04/10/18 @ 19:24 by Nicanor Hoyt DO) UTI (urinary tract infection) (Acute) Metabolic encephalopathy (Acute) Subjective: Patient seen and examined. She remains short of breath. She denies any fever, chills, cough, chest pain, abdominal pain, diarrhea or vomiting. She complains of lethargy. Pulmonology consulted o/a of persistent hypoxia. Review of systems is otherwise negative. Labs and vitals reviewed. Patient says she is too weak to go home, though she doesnt want to go to snf. Patient acquiesced to going to SNF after further counselling. Vitals/I&O's: Vital Signs Temp Pulse Resp BP Pulse Ox 97.8 F 79 16 144/85 H 88 04/15/18 07:50 04/15/18 11:14 04/15/18 11:14 04/15/18 09:21 04/15/18 09:36 Oxygen Flow Rate (L/min) [ 2 AMBULATION with Oxygen] Oxygen Flow Rate (L/min) 3 Oxygen Delivery Method Room Air Weight: 205 lb 0.478 oz Body Mass Index (BMI) 40.0 Finger Stick Blood Glucose 187 Intake and Output for Last 24 Hours 04/13/18 04/14/18 04/15/18 22:59 23:59 23:59 Intake Total Balance General: Alert, Oriented x3, Cooperative, Lethargic HEENT: Atraumatic, PERRLA, EOMI, Normocephalic Oral: Dry Mucosa Neck: Supple, No JVD, Negative Carotid Bruits Lungs: - - has diminished breath sounds and wheezing in all lung gallegos bilaterally. No crackles or rales. Cardiovascular: Regular rate, Regular Rhythm, Normal S1, Normal S2, No murmurs Abdomen: Bowel Sounds Present, Soft, Non Tender Extremities: No clubbing, No cyanosis, No edema, Capillary Refill Less than 3 Seconds Skin: No rashes, No breakdown Musculoskeletal: No Tenderness to Palpation of Joints or Extremities Lymphatic: No Cervical, Supraclavicular, or Inguinal Adenopathy Neurological: Cranial nerves II-XII grossly intact, Neuro grossly intact, Motor Exam 5/5 strength throughout Psych/Mental Status: Normal Affect, Appropriate, Alert and oriented to time, place, person, mood and affect Microbiology Past 72 Hours 04/09/18 14:19 Blood Culture (Wb) - Anticubital Right Blood Culture - Final No growth in 5 days. 04/09/18 12:40 Urine Catheter - Catheter Urine Culture - Final Klebsiella pneumoniae sp pneum Laboratory Results 04/15/18 06:00: Sodium 142, Potassium 4.4, Chloride 98, Carbon Dioxide 34.0 H, Anion Gap 10, BUN 40 H, Creatinine 1.25 H, Estim Creat Clear Calc 28.36, Est GFR (MDRD) Af Amer 54 L, Est GFR (MDRD) Non-Af 45 L, BUN/Creatinine Ratio 32.0 H, Glucose 128 H, Calcium 9.2 Current Medications Acetaminophen (Tylenol) 650 mg PO Q6H PRN PRN PRN Reason: PAIN Last Admin: 04/13/18 10:16 Dose: 650 mg Albuterol Sulfate (Ventolin Aerosols) 2.5 mg INHALATION Q2H PRN PRN PRN Reason: SHORTNESS OF BREATH Last Admin: 04/10/18 21:46 Dose: 2.5 mg Albuterol/Ipratropium (Duoneb) 3 ml INHALATION Q4H.RT [facility] Last Admin: 04/15/18 11:14 Dose: 3 ml Amiodarone HCl (Cordarone) 200 mg PO DAILY@0800 [facility] Last Admin: 04/15/18 09:21 Dose: 200 mg Duloxetine HCl (Cymbalta) 60 mg PO DAILY [facility] Last Admin: 04/15/18 09:21 Dose: 60 mg Furosemide (Lasix) 40 mg IV BID@1000,1800 [facility] Last Admin: 04/15/18 09:22 Dose: 40 mg Guaifenesin (Mucinex) 600 mg PO BID [facility] Last Admin: 04/15/18 09:21 Dose: 600 mg Ibuprofen (Motrin) 400 mg PO Q6 PRN PRN Reason: PAIN Last Admin: 04/14/18 09:51 Dose: 400 mg Magnesium Hydroxide (Milk Of Magnesia) 30 ml PO DAILY PRN PRN PRN Reason: Constipation Magnesium Oxide (Mag-Ox 400) 400 mg PO BID [facility] Last Admin: 04/15/18 09:21 Dose: 400 mg Metoprolol Tartrate (Lopressor (Beta Tommy)) 50 mg PO BID [facility] Last Admin: 04/15/18 09:21 Dose: 50 mg Ondansetron HCl (Zofran) 4 mg IV Q8H PRN PRN PRN Reason: NAUSEA Pantoprazole Sodium (Protonix) 40 mg PO DAILY [facility] Last Admin: 04/15/18 09:21 Dose: 40 mg Phenazopyridine HCl (Azo Standard) 190 mg PO TIDCM [facility] Last Admin: 04/15/18 11:43 Dose: 190 mg Potassium Chloride (K-Dur) 20 meq PO BIDCM [facility] Last Admin: 04/15/18 09:22 Dose: 20 meq Prednisone () 40 mg PO DAILY@0800 [facility] Last Admin: 04/15/18 09:22 Dose: 40 mg Rivaroxaban (Xarelto) 15 mg PO DAILY@1700 [facility] Last Admin: 04/14/18 17:53 Dose: 15 mg Sodium Chloride () 5 - 15 ml IV UD PRN PRN Reason: SALINE FLUSH Last Admin: 04/14/18 17:54 Dose: 10 ml Medical Necessity - Tobacco Use Smoking Status: Former smoker Tobacco Use: Non-smoker Assessment/Plan All Active Problems (Last Updated 04/10/18 @ 19:24 by Nicanor Hoyt DO) UTI (urinary tract infection) (Acute) Metabolic encephalopathy (Acute) Diastolic CHF (Resolved) Ulcer of left lower extremity with fat layer exposed (Resolved) 1. Acute cystitis * due to ESBL Klebsiella. * currently on Macrobid * stable. Will monitor * 2. Influenza A infection: on tamiflu 3. Acute hxpoxic respiratory insufficiency * likely due to history of HFpEF, bronchial hyperreactivity from Influenza A and history of smoking * still remains very short of breath, and was saturating at 81% on room air at rest * being diuresed with IV lasix * pulmo on board-think it is secondary to component of decompensated heart failure preserved ejection fraction coupled with post viral bronchial hyperresponsiveness from influenza A. * Pulmonary recommends to continue steroids, with 5-day course of prednisone at discharge as well as scheduled budesonide to alleviate some of bronchial inflammation. To have baseline PFTs completed once a breathing quality returns to normal and follow-up with pulmonary. * CT chest showed no intersitial lung idsease or honeycombing identified; left lower lobe fibrotic parenchymal lungs in the area of prior consolidation prior CT from 2010, and mild bronchiectasis. * it is likely patient will need oxygen at home * to continue diuresing with IV lasix * encourage incentive spirometry use; on Aerobika * 4. Metabolic encephalopathy due to cystitis and influenza * resolved. * 5. CAD: Stable. 6. A. fib: On amiodarone and metoprolol. On xarelto 7. Acute on chronic diastolic heart failure: as under 3. 8. CKD 3: Cr is 1.25. Will monitor 9. Metabolic alkalosis: Bicarb is up to 34. Likely contraction alkalosis from Lasix. Will cut down on Lasix. DVT prophylaxis: On Xarelto. Disposition: patient now wants to go to SNF. Case Management on board. Code Visit Inpatient E&M: 35957 Subs Hosp L3
--- NOTE | 2018-04-15 15:44 | CASEMGMT ---
Social Work Referral for long-term placement. Spoke with patient in room and provided patient with list of nursing homes within the area that are in-network with patient insurance. Patient choosing [facility] as first choice and [facility] as second choice. Referral made to [facility]. Voicemail left. Clinical information faxed. Social work to continue to follow. Travis Fiore MSW, PRAVIN
[2018-04-15] MEDS: Rivaroxaban 15 MG Tablet PO (17:02)
[2018-04-15] MEDS: Furosemide 40 MG Tablet PO (17:02)
[2018-04-16] VITALS (9 sets, daily range): BP systolic 155–164; BP diastolic 61–80; PULSE 60–68; RESP 16–18; TEMP 36.7–36.9; O2SAT 92–96
[2018-04-16] MEDS: Ibuprofen 400 MG Tablet PO (03:45)
[2018-04-16] MEDS: Ipratropium/Albuterol Sulfate 3 ML AMPUL.NEB INHALATION ×3 (07:07→23:17)
--- NOTE | 2018-04-16 07:19 | PCM.PROGNOTE ---
Patient Problems: Active and Suspected Problems (Last Updated 04/10/18 @ 19:24 by Nicanor Hoyt DO) UTI (urinary tract infection) (Acute) Metabolic encephalopathy (Acute) Subjective: The patient was seen and examined at the bedside this morning. Events from the last 24 hours have been reviewed. The patient is currently afebrile, hemodynamically stable and maintaining appropriate oxygen saturations on 3 L/min via nasal cannula. Social work is currently working on disposition to a nursing home facility. Objective: The patient's most recent lab work, culture data and imaging studies have all been personally reviewed. Surface echocardiogram from June 2017 revealed normal LV size and function with an ejection fraction of 65%. Right ventricular systolic pressure was estimated to be [address] chest without contrast was completed on April 14 and revealed mild degree of bronchiectasis along with left lower lobe fibrotic changes. Urine culture was positive for Klebsiella pneumonia. Rapid influenza screen was positive for influenza A. Blood cultures have shown no growth to date. - Physical Exam General: Alert, No apparent distress HEENT: Atraumatic, PERRLA, Normocephalic Oral: No Gingival or Mucosal Lesions/ Ulcerations Neck: Supple, No Nodes, Trachea Midline Lungs: No rhonchi, No rales, Diminished, Wheezes Cardiovascular: Regular rate, Regular Rhythm, Normal S1, Normal S2, No murmurs Abdomen: Bowel Sounds Present, Soft, Non Tender, Obese Extremities: No clubbing, No cyanosis, Edema Skin: No breakdown Musculoskeletal: No Tenderness to Palpation of Joints or Extremities, No Muscle Wasting Lymphatic: No Cervical, Supraclavicular, or Inguinal Adenopathy Neurological: Neuro grossly intact Psych/Mental Status: Normal Affect, Appropriate Vital Signs Temp Pulse Resp BP Pulse Ox 36.8 C 60 18 155/80 H 95 04/16/18 03:09 04/16/18 03:09 04/16/18 03:09 04/16/18 03:09 04/16/18 03:09 Oxygen Flow Rate (L/min) [ 2 AMBULATION with Oxygen] Oxygen Flow Rate (L/min) 3 Oxygen Delivery Method Nasal Cannula Weight: 205 lb 0.478 oz Body Mass Index (BMI) 40.0 Finger Stick Blood Glucose 187 Intake and Output for Last 24 Hours 04/14/18 04/15/18 04/16/18 23:59 23:59 23:59 Intake Total 200 / 200 Output Total Balance 199 / 199 Microbiology Past 72 Hours 04/09/18 14:19 Blood Culture - Final Blood Culture (Wb) - Anticubital Right No growth in 5 days. Labs (Last 48 Hours) 04/14/18 04/15/18 06:00 06:00 Absolute Neuts (auto) 6.5 Absolute Lymphs (auto) 1.74 Total Counted 100 Neutrophils % (Manual) 77 H Band Neutrophils % 1 Lymphocytes % (Manual) 21 Monocytes % (Manual) 1 Diff Path Review May foll Platelet Estimate ADEQUATE Polychromasia RARE Hypochromasia 1+ Anisocytosis 1+ Microcytosis 1+ Sodium 142 Potassium 4.4 Chloride 98 Carbon Dioxide 34.0 H Anion Gap 10 BUN 40 H Creatinine 1.25 H Estim Creat Clear Calc 28.36 Est GFR (MDRD) Af Amer 54 L Est GFR (MDRD) Non-Af 45 L BUN/Creatinine Ratio 32.0 H Glucose 128 H Calcium 9.2 Microbiology 04/09/18 14:19 Blood Culture (Wb) - Anticubital Right Blood Culture - Final No growth in 5 days. Clinical Impression(s) from Imaging Studies Chest X-Ray 04/09/18 09:46 IMPRESSION: Vascular congestion and mild CHF. Electronically Signed: Milo Hughes at 10:23 EST , Service support , Chest X-Ray 04/12/18 13:15 IMPRESSION: No acute cardiopulmonary process. Electronically Signed: Krunal Khan MD at 15:24 EST Tel , Service support , Chest CT 04/14/18 10:27 IMPRESSION: 1. No significant interstitial lung disease or honeycombing identified. 2. Left lower lobe fibrotic parenchymal bands in the region of prior consolidation prior CT (2010). 3. Mild bronchiectasis. 4. Atherosclerosis. CABG. Electronically Signed: Kyle Ba MD at 14:11 EDT , Service support , Medical Necessity - Tobacco Use Smoking Status: Former smoker Tobacco Use: Non-smoker Assessment/Plan All Active Problems (Last Updated 04/10/18 @ 19:24 by Nicanor Hoyt DO) UTI (urinary tract infection) (Acute) Metabolic encephalopathy (Acute) Diastolic CHF (Resolved) Ulcer of left lower extremity with fat layer exposed (Resolved) RECOMMENDATIONS: 1. Continue bronchodilators and steroids as ordered. 2. Wean supplemental oxygen to maintain saturations at or above 90%. 3. Perform walking oximetry study prior to consideration for discharge from the hospital. 4. At discharge, the patient can be sent home with prednisone 40 mg daily times 5 days along with scheduled budesonide aerosols 0.5 mg twice daily. 5. I explained to the patient that she will likely have a supplemental oxygen requirement upon discharge. 6. Follow-up in the pulmonary medicine clinic within 2 weeks of her discharge. We will reassess her ongoing oxygen requirement at that time. 7. Will obtain baseline pulmonary function studies on an outpatient basis, once the patient's breathing quality has returned back to baseline. IMPRESSIONS: 1. Acute hypoxemic respiratory insufficiency Likely secondary to a component of decompensated heart failure with preserved ejection fraction, coupled with post viral bronchial hyperresponsiveness from the patient's influenza A infection. She does have a rather extensive prior smoking history, so I cannot discount the possibility of underlying obstructive lung disease. Her CT chest was personally reviewed and revealed no significant airspace consolidation or infiltrate. She did have some bronchiectasis. I agree with continuing scheduled bronchodilators and prednisone. She completed a treatment course of Tamiflu. At the time of her discharge, she could be sent home with a 5-day course of prednisone 40 mg daily, along with scheduled budesonide 0.5 mg twice daily to help alleviate some of the patient's bronchial inflammation. I would also recommend that she have baseline PFTs completed, once her breathing quality has returned back to baseline. I would ask that the patient follow-up in the pulmonary medicine clinic within 2 weeks of her discharge from the hospital. At that time, we will plan to perform a repeat walking oximetry study to evaluate for the ongoing need for supplemental oxygen. 2. Klebsiella cystitis Continue anti-microbial treatment regimen, per hospitalist. This note was generated with [employer]ation software. It may contain incorrect words, spelling, and punctuation that were not noted in checking the note before signing. Code Visit Inpatient E&M: 80260 Subs Hosp L2
--- NOTE | 2018-04-16 07:23 | PN_ITS ---
Patient Problems: Active and Suspected Problems (Last Updated 04/10/18 @ 19:24 by Nicanor Hoyt DO) UTI (urinary tract infection) (Acute) Metabolic encephalopathy (Acute) Subjective: The patient was seen and examined at the bedside this morning. Events from the last 24 hours have been reviewed. The patient is currently afebrile, hemodynamically stable and maintaining appropriate oxygen saturations on 3 L/min via nasal cannula. Social work is currently working on disposition to a [facility] facility. Objective: The patient's most recent lab work, culture data and imaging studies have all been personally reviewed. Surface echocardiogram from June 2017 revealed normal LV size and function with an ejection fraction of 65%. Right ventricular systolic pressure was estimated to be [address] chest without contrast was completed on April 14 and revealed mild degree of bronchiectasis along with left lower lobe fibrotic changes. Urine culture was positive for Klebsiella pneumonia. Rapid influenza screen was positive for influenza A. Blood cultures have shown no growth to date. - Physical Exam General: Alert, No apparent distress HEENT: Atraumatic, PERRLA, Normocephalic Oral: No Gingival or Mucosal Lesions/ Ulcerations Neck: Supple, No Nodes, Trachea Midline Lungs: No rhonchi, No rales, Diminished, Wheezes Cardiovascular: Regular rate, Regular Rhythm, Normal S1, Normal S2, No murmurs Abdomen: Bowel Sounds Present, Soft, Non Tender, Obese Extremities: No clubbing, No cyanosis, Edema Skin: No breakdown Musculoskeletal: No Tenderness to Palpation of Joints or Extremities, No Muscle Wasting Lymphatic: No Cervical, Supraclavicular, or Inguinal Adenopathy Neurological: Neuro grossly intact Psych/Mental Status: Normal Affect, Appropriate Vital Signs Temp Pulse Resp BP Pulse Ox 36.8 C 60 18 155/80 H 95 04/16/18 03:09 04/16/18 03:09 04/16/18 03:09 04/16/18 03:09 04/16/18 03:09 Oxygen Flow Rate (L/min) [ 2 AMBULATION with Oxygen] Oxygen Flow Rate (L/min) 3 Oxygen Delivery Method Nasal Cannula Weight: 205 lb 0.478 oz Body Mass Index (BMI) 40.0 Finger Stick Blood Glucose 187 Intake and Output for Last 24 Hours 04/14/18 04/15/18 04/16/18 23:59 23:59 23:59 Intake Total 200 / 200 Output Total Balance 199 / 199 Microbiology Past 72 Hours 04/09/18 14:19 Blood Culture - Final Blood Culture (Wb) - Anticubital Right No growth in 5 days. Labs (Last 48 Hours) 04/14/18 04/15/18 06:00 06:00 Absolute Neuts (auto) 6.5 Absolute Lymphs (auto) 1.74 Total Counted 100 Neutrophils % (Manual) 77 H Band Neutrophils % 1 Lymphocytes % (Manual) 21 Monocytes % (Manual) 1 Diff Path Review May foll Platelet Estimate ADEQUATE Polychromasia RARE Hypochromasia 1+ Anisocytosis 1+ Microcytosis 1+ Sodium 142 Potassium 4.4 Chloride 98 Carbon Dioxide 34.0 H Anion Gap 10 BUN 40 H Creatinine 1.25 H Estim Creat Clear Calc 28.36 Est GFR (MDRD) Af Amer 54 L Est GFR (MDRD) Non-Af 45 L BUN/Creatinine Ratio 32.0 H Glucose 128 H Calcium 9.2 Microbiology 04/09/18 14:19 Blood Culture (Wb) - Anticubital Right Blood Culture - Final No growth in 5 days. Clinical Impression(s) from Imaging Studies Chest X-Ray 04/09/18 09:46 IMPRESSION: Vascular congestion and mild CHF. Electronically Signed: Milo Hughes at 10:23 EST , Service support , Chest X-Ray 04/12/18 13:15 IMPRESSION: No acute cardiopulmonary process. Electronically Signed: Krunal Khan MD at 15:24 EST Tel , Service support , Chest CT 04/14/18 10:27 IMPRESSION: 1. No significant interstitial lung disease or honeycombing identified. 2. Left lower lobe fibrotic parenchymal bands in the region of prior consolidation prior CT (2010). 3. Mild bronchiectasis. 4. Atherosclerosis. CABG. Electronically Signed: Kyle Ba MD at 14:11 EDT , Service support , Medical Necessity - Tobacco Use Smoking Status: Former smoker Tobacco Use: Non-smoker Assessment/Plan All Active Problems (Last Updated 04/10/18 @ 19:24 by Nicanor Hoyt DO) UTI (urinary tract infection) (Acute) Metabolic encephalopathy (Acute) Diastolic CHF (Resolved) Ulcer of left lower extremity with fat layer exposed (Resolved) RECOMMENDATIONS: 1. Continue bronchodilators and steroids as ordered. 2. Wean supplemental oxygen to maintain saturations at or above 90%. 3. Perform walking oximetry study prior to consideration for discharge from the hospital. 4. At discharge, the patient can be sent home with prednisone 40 mg daily times 5 days along with scheduled budesonide aerosols 0.5 mg twice daily. 5. I explained to the patient that she will likely have a supplemental oxygen requirement upon discharge. 6. Follow-up in the pulmonary medicine clinic within 2 weeks of her discharge. We will reassess her ongoing oxygen requirement at that time. 7. Will obtain baseline pulmonary function studies on an outpatient basis, once the patient's breathing quality has returned back to baseline. IMPRESSIONS: 1. Acute hypoxemic respiratory insufficiency Likely secondary to a component of decompensated heart failure with preserved ejection fraction, coupled with post viral bronchial hyperresponsiveness from the patient's influenza A infection. She does have a rather extensive prior smoking history, so I cannot discount the possibility of underlying obstructive lung disease. Her CT chest was personally reviewed and revealed no significant airspace consolidation or infiltrate. She did have some bronchiectasis. I agree with continuing scheduled bronchodilators and prednisone. She completed a treatment course of Tamiflu. At the time of her discharge, she could be sent home with a 5-day course of prednisone 40 mg daily, along with scheduled budesonide 0.5 mg twice daily to help alleviate some of the patient's bronchial inflammation. I would also recommend that she have baseline PFTs completed, once her breathing quality has returned back to baseline. I would ask that the patient follow-up in the pulmonary medicine clinic within 2 weeks of her discharge from the hospital. At that time, we will plan to perform a repeat walking oximetry study to evaluate for the ongoing need for supplemental oxygen. 2. Klebsiella cystitis Continue anti-microbial treatment regimen, per hospitalist. This note was generated with [employer] software. It may contain incorrect words, spelling, and punctuation that were not noted in checking the note before signing. Code Visit Inpatient E&M: 45686 Subs Hosp L2
[2018-04-16 08:06] LABS: Hematocrit 38.2 % (37-47); Hemoglobin 10.9 g/dl (12.0-15.0); Mean Corp Hgb Conc 28.5 g/gl (32-36); Mean Corpuscular Volume 91.2 fL (81-99); Mean Platelet Vol. 10.1 fl (6.2-12.0); Platelet Count 276 K/mm3 (150-450); RBC Distribution Width CV 19.4 % (11.6-14.6); RBC Distribution Width SD 62.5 fl (35.1-43.9); Red Blood Count 4.19 M/mm3 (4.2-5.4); White Blood Count 12.6 K/mm3 (4.4-11.0)
[2018-04-16 08:07] LABS: Differential Indicated MANUAL DIFF; POSITIVE COUNT YES; POSITIVE DIFFERENTIAL NO; POSITIVE MORPHOLOGY YES
[2018-04-16 08:24] LABS: Anion Gap 7 (5-15); BUN 41 mg/dL (7-18); BUN/Creat Ratio 31.5 RATIO (10-20); Calcium,Total 8.8 mg/dL (8.5-10.1); Chloride 99 mmol/L (98-107); EST Glomerular Filtration Rate 43 mL/min (>60); Est Glom Filt Rate - Afr Amer 52 mL/min (>60); Estimated Creatinine Clearance 27.27 ml/min; Glucose 90 mg/dL (74-106); Potassium 3.7 mmol/L (3.5-5.1); Sodium Level 140 mmol/L (136-145)
[2018-04-16 08:41] LABS: Hypersegmented Neutrophils 1+; Lymphocyte 24 % (19-41); Metamyelocyte 4 % (0-1); Monocyte 4 % (0-10); Neutrophil-Segmented 68 % (47-70); Nucleated Red Bld Cells,Manual 1 % (0-5); Total Cells Counted 100 (MANUAL DIFF)
[2018-04-16 08:42] LABS: Absolute Neutrophil Count 8.6 X10^3/uL (2.0-7.7); Hypochromasia 1+; Platelet Estimate ADEQUATE (ADEQ); Red Cell Morphology N CYTIC NORMAL (NORM C&C)
[2018-04-16] MEDS: Phenazopyridine 95 MG Tablet 190 MG PO ×3 (08:44→17:26)
[2018-04-16] MEDS: Amiodarone 200 MG Tablet PO (08:44)
[2018-04-16] MEDS: predniSONE 20 MG Tablet 40 MG PO (08:44)
--- NOTE | 2018-04-16 09:46 | CASEMGMT ---
Social Work Note SW received message from Padma at [facility] asking for copies of pt's insurance card and if pt has influenza and if pt is in isolation. JAGDEEP faxed copy of insurance card. JAGDEEP placed a call to Padma at [facility] and left her a message and updated her that pt does have influenza and is in isolation and if they are able to accept to submit for pre-cert. Plan: [facility] pending acceptance and pre-cert Digna Palumbo POSTULANT, FILAMENT SHAPER
--- NOTE | 2018-04-16 10:24 | CASEMGMT ---
Addendum entered by Digna Palumbo 04/16/18 12:05: JAGDEEP faxed updated PT/OT to [facility]. Original Note: Social Work Note SW received message from Padma at [facility] stating she is able to accept pt and will submit for pre-cert. Plan: [facility] pending pre-cert Digna Palumbo TOWEL STRETCHER, KENNEL ATTENDANT
[2018-04-16] MEDS: Metoprolol Tartrate 50 MG Tablet PO ×2 (10:27→22:03)
[2018-04-16] MEDS: Pantoprazole Sodium 40 MG Tablet PO (10:27)
[2018-04-16] MEDS: Furosemide 40 MG Tablet PO (10:27)
[2018-04-16] MEDS: DULoxetine Hcl 60 MG Capsule PO (10:27)
[2018-04-16] MEDS: Magnesium Oxide 400 MG Tablet PO ×2 (10:28→22:03)
[2018-04-16] MEDS: guaiFENesin 600 MG Tablet PO ×2 (10:28→22:03)
[2018-04-16 13:27] LABS: Pathologist Review Reviewed
[2018-04-16 13:49] LABS: Pathologist Review Reviewed
--- NOTE | 2018-04-16 15:55 | PCM.PN.HOSP ---
Patient Problems: Active and Suspected Problems (Last Updated 04/10/18 @ 19:24 by Nicanor Hoyt DO) UTI (urinary tract infection) (Acute) Metabolic encephalopathy (Acute) Subjective: Patient seen and examined. He had no complaints overnight. Review of systems otherwise negative. She is awaiting placement. Labs and vitals reviewed. Vitals/I&O's: Vital Signs Temp Pulse Resp BP Pulse Ox 98.1 F 66 18 164/61 H 94 04/16/18 08:30 04/16/18 10:27 04/16/18 08:34 04/16/18 08:30 04/16/18 08:30 Oxygen Flow Rate (L/min) [ 2 AMBULATION with Oxygen] Oxygen Flow Rate (L/min) 2 Oxygen Delivery Method Nasal Cannula Weight: 205 lb 0.478 oz Body Mass Index (BMI) 40.0 Finger Stick Blood Glucose 187 Intake and Output for Last 24 Hours 04/14/18 04/15/18 04/16/18 23:59 23:59 23:59 Intake Total 200 / 200 Output Total Balance 199 / 199 General: Alert, Oriented x3, Cooperative, Lethargic HEENT: Atraumatic, PERRLA, EOMI, Normocephalic Oral: Dry Mucosa Neck: Supple, No JVD, Negative Carotid Bruits Lungs: - - has diminished breath sounds and wheezing in all lung gallegos bilaterally. No crackles or rales. on 2L of oxygen Cardiovascular: Regular rate, Regular Rhythm, Normal S1, Normal S2, No murmurs Abdomen: Bowel Sounds Present, Soft, Non Tender Extremities: No clubbing, No cyanosis, No edema, Capillary Refill Less than 3 Seconds Skin: No rashes, No breakdown Musculoskeletal: No Tenderness to Palpation of Joints or Extremities Lymphatic: No Cervical, Supraclavicular, or Inguinal Adenopathy Neurological: Cranial nerves II-XII grossly intact, Neuro grossly intact, Motor Exam 5/5 strength throughout Psych/Mental Status: Normal Affect, Appropriate, Alert and oriented to time, place, person, mood and affect Microbiology Past 72 Hours 04/09/18 14:19 Blood Culture (Wb) - Anticubital Right Blood Culture - Final No growth in 5 days. Laboratory Results 04/14/18 06:00: Diff Path Review Reviewed 04/16/18 07:22: WBC 12.6 H, RBC 4.19 L, Hgb 10.9 L, Hct 38.2, MCV 91.2, MCH 26.0 L, MCHC 28.5 L, RDW 19.4 H, RDW Differential 62.5 H, Plt Count 276, MPV 10.1, Neut % (Auto) Not Reportable, Absolute Neuts (auto) 8.6 H, Absolute Lymphs (auto) 3.00, Total Counted 100, Neutrophils % (Manual) 68, Lymphocytes % (Manual) 24, Monocytes % (Manual) 4, Metamyelocytes % 4 H, Nucleated RBCs/100 WBC 1, Diff Path Review Reviewed, Hypersegmented Neuts 1+ H, Platelet Estimate ADEQUATE, RBC Morphology N CYTIC, Hypochromasia 1+ 04/16/18 07:22: Sodium 140, Potassium 3.7, Chloride 99, Carbon Dioxide 34.0 H, Anion Gap 7, BUN 41 H, Creatinine 1.30 H, Estim Creat Clear Calc 27.27, Est GFR (MDRD) Af Amer 52 L, Est GFR (MDRD) Non-Af 43 L, BUN/Creatinine Ratio 31.5 H, Glucose 90, Calcium 8.8 Current Medications Acetaminophen (Tylenol) 650 mg PO Q6H PRN PRN PRN Reason: PAIN Last Admin: 04/13/18 10:16 Dose: 650 mg Albuterol Sulfate (Ventolin Aerosols) 2.5 mg INHALATION Q2H PRN PRN PRN Reason: SHORTNESS OF BREATH Last Admin: 04/10/18 21:46 Dose: 2.5 mg Albuterol/Ipratropium (Duoneb) 3 ml INHALATION Q4H.RT [facility] Last Admin: 04/16/18 10:50 Dose: Not Given Amiodarone HCl (Cordarone) 200 mg PO DAILY@0800 [facility] Last Admin: 04/16/18 08:44 Dose: 200 mg Duloxetine HCl (Cymbalta) 60 mg PO DAILY [facility] Last Admin: 04/16/18 10:27 Dose: 60 mg Furosemide (Lasix) 40 mg PO BID@1000,1800 [facility] Last Admin: 04/16/18 10:27 Dose: 40 mg Guaifenesin (Mucinex) 600 mg PO BID [facility] Last Admin: 04/16/18 10:28 Dose: 600 mg Ibuprofen (Motrin) 400 mg PO Q6 PRN PRN Reason: PAIN Last Admin: 04/16/18 03:45 Dose: 400 mg Magnesium Hydroxide (Milk Of Magnesia) 30 ml PO DAILY PRN PRN PRN Reason: Constipation Magnesium Oxide (Mag-Ox 400) 400 mg PO BID [facility] Last Admin: 04/16/18 10:28 Dose: 400 mg Metoprolol Tartrate (Lopressor (Beta Tommy)) 50 mg PO BID [facility] Last Admin: 04/16/18 10:27 Dose: 50 mg Ondansetron HCl (Zofran) 4 mg IV Q8H PRN PRN PRN Reason: NAUSEA Pantoprazole Sodium (Protonix) 40 mg PO DAILY [facility] Last Admin: 04/16/18 10:27 Dose: 40 mg Phenazopyridine HCl (Azo Standard) 190 mg PO TIDCM [facility] Last Admin: 04/16/18 11:41 Dose: 190 mg Potassium Chloride (K-Dur) 20 meq PO BIDCM [facility] Last Admin: 04/16/18 08:44 Dose: 20 meq Prednisone () 40 mg PO DAILY@0800 [facility] Last Admin: 04/16/18 08:44 Dose: 40 mg Rivaroxaban (Xarelto) 15 mg PO DAILY@1700 [facility] Last Admin: 04/15/18 17:02 Dose: 15 mg Sodium Chloride () 5 - 15 ml IV UD PRN PRN Reason: SALINE FLUSH Last Admin: 04/14/18 17:54 Dose: 10 ml Medical Necessity - Tobacco Use Smoking Status: Former smoker Tobacco Use: Non-smoker Assessment/Plan All Active Problems (Last Updated 04/10/18 @ 19:24 by Nicanor Hoyt DO) UTI (urinary tract infection) (Acute) Metabolic encephalopathy (Acute) Diastolic CHF (Resolved) Ulcer of left lower extremity with fat layer exposed (Resolved) 1. Acute cystitis due to ESBL Klebsiella. currently on Macrobid stable. Will monitor 2. Influenza A infection: on tamiflu 3. Acute hxpoxic respiratory insufficiency likely due to history of HFpEF, bronchial hyperreactivity from Influenza A and history of smoking still remains very short of breath, and was saturating at 81% on room air at rest SOB has improved. now on 2L of oxygen will swith to PO lasix to give 5 days of steroids at discharge. aggressive incentive spirometry use. titrate oxygen to maintain sats>92% 4. Metabolic encephalopathy due to cystitis and influenza resolved. 5. CAD: Stable. 6. A. fib: On amiodarone and metoprolol. On xarelto 7. Acute on chronic diastolic heart failure: as under 3. 8. CKD 3: Cr is 1.30. Will monitor 9. Metabolic alkalosis: Bicarb is up to 41 today. Will give diamox and switch to PO lasix. Likely contraction alkalosis from Lasix. DVT prophylaxis: On Xarelto. Disposition: awaiting placement. Code Visit Inpatient E&M: 83217 Subs Hosp L3
--- NOTE | 2018-04-16 15:58 | PN_ITS ---
Patient Problems: Active and Suspected Problems (Last Updated 04/10/18 @ 19:24 by Nicanor Hoyt DO) UTI (urinary tract infection) (Acute) Metabolic encephalopathy (Acute) Subjective: Patient seen and examined. He had no complaints overnight. Review of systems otherwise negative. She is awaiting placement. Labs and vitals reviewed. Vitals/I&O's: Vital Signs Temp Pulse Resp BP Pulse Ox 98.1 F 66 18 164/61 H 94 04/16/18 08:30 04/16/18 10:27 04/16/18 08:34 04/16/18 08:30 04/16/18 08:30 Oxygen Flow Rate (L/min) [ 2 AMBULATION with Oxygen] Oxygen Flow Rate (L/min) 2 Oxygen Delivery Method Nasal Cannula Weight: 205 lb 0.478 oz Body Mass Index (BMI) 40.0 Finger Stick Blood Glucose 187 Intake and Output for Last 24 Hours 04/14/18 04/15/18 04/16/18 23:59 23:59 23:59 Intake Total 200 / 200 Output Total Balance 199 / 199 General: Alert, Oriented x3, Cooperative, Lethargic HEENT: Atraumatic, PERRLA, EOMI, Normocephalic Oral: Dry Mucosa Neck: Supple, No JVD, Negative Carotid Bruits Lungs: - - has diminished breath sounds and wheezing in all lung gallegos bilaterally. No crackles or rales. on 2L of oxygen Cardiovascular: Regular rate, Regular Rhythm, Normal S1, Normal S2, No murmurs Abdomen: Bowel Sounds Present, Soft, Non Tender Extremities: No clubbing, No cyanosis, No edema, Capillary Refill Less than 3 Seconds Skin: No rashes, No breakdown Musculoskeletal: No Tenderness to Palpation of Joints or Extremities Lymphatic: No Cervical, Supraclavicular, or Inguinal Adenopathy Neurological: Cranial nerves II-XII grossly intact, Neuro grossly intact, Motor Exam 5/5 strength throughout Psych/Mental Status: Normal Affect, Appropriate, Alert and oriented to time, place, person, mood and affect Microbiology Past 72 Hours 04/09/18 14:19 Blood Culture (Wb) - Anticubital Right Blood Culture - Final No growth in 5 days. Laboratory Results 04/14/18 06:00: Diff Path Review Reviewed 04/16/18 07:22: WBC 12.6 H, RBC 4.19 L, Hgb 10.9 L, Hct 38.2, MCV 91.2, MCH 26.0 L, MCHC 28.5 L, RDW 19.4 H, RDW Differential 62.5 H, Plt Count 276, MPV 10.1, Neut % (Auto) Not Reportable, Absolute Neuts (auto) 8.6 H, Absolute Lymphs (auto) 3.00, Total Counted 100, Neutrophils % (Manual) 68, Lymphocytes % (Manual) 24, Monocytes % (Manual) 4, Metamyelocytes % 4 H, Nucleated RBCs/100 WBC 1, Diff Path Review Reviewed, Hypersegmented Neuts 1+ H, Platelet Estimate ADEQUATE, RBC Morphology N CYTIC, Hypochromasia 1+ 04/16/18 07:22: Sodium 140, Potassium 3.7, Chloride 99, Carbon Dioxide 34.0 H, Anion Gap 7, BUN 41 H, Creatinine 1.30 H, Estim Creat Clear Calc 27.27, Est GFR (MDRD) Af Amer 52 L, Est GFR (MDRD) Non-Af 43 L, BUN/Creatinine Ratio 31.5 H, Glucose 90, Calcium 8.8 Current Medications Acetaminophen (Tylenol) 650 mg PO Q6H PRN PRN PRN Reason: PAIN Last Admin: 04/13/18 10:16 Dose: 650 mg Albuterol Sulfate (Ventolin Aerosols) 2.5 mg INHALATION Q2H PRN PRN PRN Reason: SHORTNESS OF BREATH Last Admin: 04/10/18 21:46 Dose: 2.5 mg Albuterol/Ipratropium (Duoneb) 3 ml INHALATION Q4H.RT [facility] Last Admin: 04/16/18 10:50 Dose: Not Given Amiodarone HCl (Cordarone) 200 mg PO DAILY@0800 [facility] Last Admin: 04/16/18 08:44 Dose: 200 mg Duloxetine HCl (Cymbalta) 60 mg PO DAILY [facility] Last Admin: 04/16/18 10:27 Dose: 60 mg Furosemide (Lasix) 40 mg PO BID@1000,1800 [facility] Last Admin: 04/16/18 10:27 Dose: 40 mg Guaifenesin (Mucinex) 600 mg PO BID [facility] Last Admin: 04/16/18 10:28 Dose: 600 mg Ibuprofen (Motrin) 400 mg PO Q6 PRN PRN Reason: PAIN Last Admin: 04/16/18 03:45 Dose: 400 mg Magnesium Hydroxide (Milk Of Magnesia) 30 ml PO DAILY PRN PRN PRN Reason: Constipation Magnesium Oxide (Mag-Ox 400) 400 mg PO BID [facility] Last Admin: 04/16/18 10:28 Dose: 400 mg Metoprolol Tartrate (Lopressor (Beta Tommy)) 50 mg PO BID [facility] Last Admin: 04/16/18 10:27 Dose: 50 mg Ondansetron HCl (Zofran) 4 mg IV Q8H PRN PRN PRN Reason: NAUSEA Pantoprazole Sodium (Protonix) 40 mg PO DAILY [facility] Last Admin: 04/16/18 10:27 Dose: 40 mg Phenazopyridine HCl (Azo Standard) 190 mg PO TIDCM [facility] Last Admin: 04/16/18 11:41 Dose: 190 mg Potassium Chloride (K-Dur) 20 meq PO BIDCM [facility] Last Admin: 04/16/18 08:44 Dose: 20 meq Prednisone () 40 mg PO DAILY@0800 [facility] Last Admin: 04/16/18 08:44 Dose: 40 mg Rivaroxaban (Xarelto) 15 mg PO DAILY@1700 [facility] Last Admin: 04/15/18 17:02 Dose: 15 mg Sodium Chloride () 5 - 15 ml IV UD PRN PRN Reason: SALINE FLUSH Last Admin: 04/14/18 17:54 Dose: 10 ml Medical Necessity - Tobacco Use Smoking Status: Former smoker Tobacco Use: Non-smoker Assessment/Plan All Active Problems (Last Updated 04/10/18 @ 19:24 by Nicanor Hoyt DO) UTI (urinary tract infection) (Acute) Metabolic encephalopathy (Acute) Diastolic CHF (Resolved) Ulcer of left lower extremity with fat layer exposed (Resolved) 1. Acute cystitis * due to ESBL Klebsiella. * currently on Macrobid * stable. Will monitor * 2. Influenza A infection: on tamiflu 3. Acute hxpoxic respiratory insufficiency * likely due to history of HFpEF, bronchial hyperreactivity from Influenza A and history of smoking * still remains very short of breath, and was saturating at 81% on room air at rest * SOB has improved. now on 2L of oxygen * will swith to PO lasix * to give 5 days of steroids at discharge. * aggressive incentive spirometry use. * titrate oxygen to maintain sats>92% * 4. Metabolic encephalopathy due to cystitis and influenza * resolved. * 5. CAD: Stable. 6. A. fib: On amiodarone and metoprolol. On xarelto 7. Acute on chronic diastolic heart failure: as under 3. 8. CKD 3: Cr is 1.30. Will monitor 9. Metabolic alkalosis: Bicarb is up to 41 today. Will give diamox and switch to PO lasix. Likely contraction alkalosis from Lasix. DVT prophylaxis: On Xarelto. Disposition: awaiting placement. Code Visit Inpatient E&M: 63903 Subs Hosp L3
[2018-04-16] MEDS: Rivaroxaban 15 MG Tablet PO (17:26)
[2018-04-16] MEDS: AcetaZOLAMIDE 250 MG Tablet PO (22:03)
[2018-04-17] VITALS (7 sets, daily range): BP systolic 131–144; BP diastolic 53–67; PULSE 64–76; RESP 16–27; TEMP 36.6–36.8; O2SAT 92–94
[2018-04-17] MEDS: Albuterol 2.5 MG/3 ML VIAL.NEB. INHALATION (04:27)
[2018-04-17] MEDS: Ibuprofen 400 MG Tablet PO (04:59)
[2018-04-17 07:05] LABS: Anion Gap 8 (5-15); BUN 43 mg/dL (7-18); BUN/Creat Ratio 30.3 RATIO (10-20); Calcium,Total 8.9 mg/dL (8.5-10.1); Chloride 103 mmol/L (98-107); Creatinine, Serum 1.42 mg/dL (0.55-1.02); EST Glomerular Filtration Rate 38 mL/min (>60); Est Glom Filt Rate - Afr Amer 47 mL/min (>60); Estimated Creatinine Clearance 24.97 ml/min; Glucose 100 mg/dL (74-106); Potassium 3.8 mmol/L (3.5-5.1); Sodium Level 140 mmol/L (136-145)
[2018-04-17] MEDS: Ipratropium/Albuterol Sulfate 3 ML AMPUL.NEB INHALATION ×2 (07:17→10:59)
[2018-04-17] MEDS: Amiodarone 200 MG Tablet PO (08:23)
[2018-04-17] MEDS: Phenazopyridine 95 MG Tablet 190 MG PO ×2 (08:23→12:54)
[2018-04-17] MEDS: predniSONE 20 MG Tablet 40 MG PO (08:23)
[2018-04-17] MEDS: DULoxetine Hcl 60 MG Capsule PO (11:22)
[2018-04-17] MEDS: Metoprolol Tartrate 50 MG Tablet PO (11:22)
[2018-04-17] MEDS: guaiFENesin 600 MG Tablet PO (11:22)
[2018-04-17] MEDS: Magnesium Oxide 400 MG Tablet PO (11:22)
[2018-04-17] MEDS: Furosemide 40 MG Tablet PO (11:22)
[2018-04-17] MEDS: Pantoprazole Sodium 40 MG Tablet PO (11:23)
[2018-04-17] MEDS: AcetaZOLAMIDE 250 MG Tablet PO (11:31)
--- NOTE | 2018-04-17 11:33 | PCM.TXEXTCAR ---
- Diet 04/09/18 15:16 Diet: Cardiac/Low Cholesterol Food consistency:: Regular Liquid Consistency:: Regular/Thin Type of Dietary Supplement:: Glucerna 1.5 emilio Is pt able to select menu?: No - Routine Orders/Code Status Enema Type: Fleetz Enema Frequency: Daily PRN Suppository Type: Dulcolax 10mg Suppository Frequency: Daily PRN O2 Liters per Minute: 3 O2 Frequency: Continuous Keep PO Greater than or Equal to (%): 92 - Therapies Weight Bearing: Weight bearing as tolerated Physical Therapy: Eval and Treat Occupational Therapy: Eval and Treat - Allergies/Procedures Done in Hospital Allergies/Adverse Reactions: Allergies codeine Allergy (Unknown, Verified 04/09/18 14:34) Hives ciprofloxacin [From Cipro] Allergy (Verified 04/09/18 12:44) Hives ciprofloxacin HCl [From Cipro] Allergy (Verified 04/09/18 12:44) Hives Latex, Natural Rubber Allergy (Verified 04/09/18 12:44) Rash Penicillins [PCN] Allergy (Verified 04/09/18 12:44) Hives adhesive tape Adverse Reaction (Verified 04/09/18 12:44) Rash Procedures: None - Type of Care/Length of Stay Estimated LOS: Convalescent Care Less Than 30 days Type of Care Needed: Skilled Rehab Potential: Fair Prognosis: Fair - Additional Orders/Day of Discharge Additional Orders: will need pulmonary function test on outpatient basis after her respiratory status is down to normal Day of Discharge: 04/17/18 - Dietary and Speech Recommendations Dietitian Recommendations/Changes: Recommend change to 1800 calorie controlled diet. Recommend sodium restriction if edema does not improve with diuresis. PO/honorio improved, suggest d/c glucerna with meals given BMI 40.0. - Follow Up Care Primary Care Physician: Octaviano Franco Chi, MD [Primary Care Provider] - Please follow up with your Primary Care Physician in: next week Please Follow Up With: Dewayne Pearson DO When: 1-2 weeks
--- NOTE | 2018-04-17 11:38 | DS.PCM_ITS ---
Discharge Date and Diagnosis Date of Admission: 04/09/18 Date of Discharge: 04/17/18 - Primary Discharge Diagnosis Active and Suspected Problems (Last Updated 04/10/18 @ 19:24 by Nicanor Hoyt DO) UTI (urinary tract infection) (Acute) Metabolic encephalopathy (Acute) acute hypoxic respiratory failure due to influenza infection influenza - Secondary Discharge Diagnosis Chronic Problems (Last Updated 04/10/18 @ 19:24 by Nicanor Hoyt DO) Bilateral lower extremity edema (Chronic) Cognitive impairment (Chronic) patient is confused at times Iron deficiency anemia (Chronic) etiology unknown PVD (peripheral vascular disease) (Chronic) Controlled diabetes mellitus (Chronic) Edema, lower extremity (Chronic) Presence of stent in coronary artery (Chronic) PTCA/stent to CX; PTCA/Stent PTCA/stent to prox RCA 05/06; PTCA/LILY in mid to distal RCA 08/29/12 Atherosclerotic heart disease of kaibab coronary artery without angina pectoris (Chronic) PTCA/stent to CX; PTCA/Stent PTCA/stent to prox RCA 05/06; PTCA/LILY in mid to distal RCA 08/29/12; CABG x2 ARREGUIN tp LAD and SVG to OM2 01/02/11 S/P CABG (coronary artery bypass graft) (Chronic ~01/02/11) CABG x2 ARREGUIN tp LAD and SVG to OM2 01/02/11 Paroxysmal atrial fibrillation (Chronic) Hyperlipidemia (Chronic) Hypertension (Chronic) Hospital Course and Treatment Imaging Results: Diagnostic Data Chest X-Ray 04/12/18 13:15 IMPRESSION: No acute cardiopulmonary process. Electronically Signed: Krunal Khan MD at 15:24 EST Tel , Service support , Chest CT 04/14/18 10:27 IMPRESSION: 1. No significant interstitial lung disease or honeycombing identified. 2. Left lower lobe fibrotic parenchymal bands in the region of prior consolidation prior CT (2010). 3. Mild bronchiectasis. 4. Atherosclerosis. CABG. Electronically Signed: Kyle Ba MD at 14:11 EDT , Service support , pulmonology- Dr Dewayne Pearson Operations: None Procedures: None Summary of Care Provided: Patient is a 73-year-old female with an extensive past medical history as listed. She was admitted with a complaint of a fall for which she saw her primary care doctor the day before admission and had a CT of the head which was negative. Certainly went home after that but was found very weak and unable to mobilize at home. She was brought to the ED where she was found to be confused. UA done was positive for UTI and ABG done showed PO2 of 31 as well as PCO2 47.6. She was started on IV ceftriaxone in the ED for suspected bronchitis. She was also managed for UTI and acute metabolic encephalopathy likely due to bronchitis and UTI. Running 2 L of oxygen on account of hypoxia. BNP was mildly elevated to 293 and chest x-ray showed only evidence of pulmonary vascular congestion. Urine cultured ESBL Klebsiella and she was put on Macrobid as it was extensively resistant. She was also started on treatment with Tamiflu for influenza infection. Patient still remains short of breath and could not be weaned off of oxygen. Chest CT without contrast done showed mild degree of bronchiectasis along the left lower lobe fibrotic changes. Her metabolic encephalopathy resolved. She also got a metabolic alkalosis with bicarb going up to 41 which was thought to be due to diuresis. She was given Diamox which helped metabolic alkalosis resolved. Patient remained stable and was discharged to a care home with home oxygen and a 5-day course of prednisone 40 mg daily as well as an scheduled inhaled budesonide to help alleviate bronchial inflammation. 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 She will need to get baseline pulmonary function test on outpatient basis once her breathing quality improves. Patient seen and examined prior to discharge. She had no complaints and felt well. Review of systems otherwise negative. Labs and vitals reviewed. She cannot really ambulate, but previous pulse oximetry checked on room air showed that she desaturated to 84% without oxygen. She therefore qualified for home oxygen. Medication reviewed and reconciled. o/e: Vital Signs Height 5 ft Weight: 205 lb 0.478 oz Weight in Pounds 205.0 lbs Pulse Ox [AMBULATION with 92 Oxygen] Pulse Ox [AMBULATING on Room 81 Air] Pulse Ox [At REST on Room Air] 93 Pulse Ox 94 Temperature 98.0 F Pulse Rate 64 Respiratory Rate 18 Blood Pressure [BP] 135/109 Blood Pressure 131/61 Blood Pressure Position [BP] Semi-Fowlers Blood Pressure Position Sitting General: Alert, Oriented x3, Cooperative, Lethargic HEENT: Atraumatic, PERRLA, EOMI, Normocephalic Oral: Dry Mucosa Neck: Supple, No JVD, Negative Carotid Bruits Lungs: - - has diminished breath sounds and wheezing in all lung gallegos bilaterally. No crackles or rales. on 2L of oxygen Cardiovascular: Regular rate, Regular Rhythm, Normal S1, Normal S2, No murmurs Abdomen: Bowel Sounds Present, Soft, Non Tender Extremities: No clubbing, No cyanosis, No edema, Capillary Refill Less than 3 Seconds Skin: No rashes, No breakdown Musculoskeletal: No Tenderness to Palpation of Joints or Extremities Lymphatic: No Cervical, Supraclavicular, or Inguinal Adenopathy Neurological: Cranial nerves II-XII grossly intact, Neuro grossly intact, Motor Exam 5/5 strength throughout Psych/Mental Status: Normal Affect, Appropriate, Alert and oriented to time, place, person, mood and affect Plan as discussed above. - Physical Exam Vital Signs Temp Pulse Resp BP Pulse Ox 97.8 F 69 20 H 144/53 H 94 04/17/18 08:24 04/17/18 11:22 04/17/18 08:24 04/17/18 11:22 04/17/18 08:24 Oxygen Flow Rate (L/min) [ 2 AMBULATION with Oxygen] Oxygen Flow Rate (L/min) 3 Oxygen Delivery Method Nasal Cannula Weight: 205 lb 0.478 oz Body Mass Index (BMI) 40.0 Finger Stick Blood Glucose 187 Intake and Output for Last 24 Hours 04/15/18 04/16/18 04/17/18 23:59 23:59 23:59 Intake Total 200 / 200 400 / 400 Output Total 1 / Balance 199 / 199 400 / 400 Microbiology Past 72 Hours 04/09/18 14:19 Blood Culture - Final Blood Culture (Wb) - Anticubital Right No growth in 5 days. Laboratory Tests Past 24 Hrs 04/14/18 04/16/18 04/17/18 06:00 07:22 06:10 Diff Path Review Reviewed Reviewed Sodium 140 Potassium 3.8 Chloride 103 Carbon Dioxide 29.0 Anion Gap 8 BUN 43 H Creatinine 1.42 H Estim Creat Clear Calc 24.97 Est GFR (MDRD) Af Amer 47 L Est GFR (MDRD) Non-Af 38 L BUN/Creatinine Ratio 30.3 H Glucose 100 Calcium 8.9 Discharge Diet: Low fat/ Low Cholesterol Discharge Activity: Return to Normal Activity Weight Bearing Status: Full weight bearing Home Medications: Medications to take at Discharge Acetaminophen [Tylenol] 650 mg PO Q6H PRN 04/09/18 Amiodarone HCl 200 mg PO DAILY 04/09/18 Duloxetine HCl 60 mg PO DAILY 04/09/18 Furosemide [Lasix] 40 mg PO BIDLX 04/09/18 Gabapentin [Neurontin] 300 mg PO QHS 04/09/18 Iron Polysaccharide Complex [Ferrex 150] 150 mg PO DAILY 04/09/18 Magnesium Oxide [Mag-Ox 400] 400 mg PO BID 04/09/18 Metoprolol Tartrate [Lopressor (beta man)] 50 mg PO BID 04/09/18 Pantoprazole Sodium [Protonix] 40 mg PO DAILY 04/09/18 Phenazopyridine [Pyridium] 200 mg PO TID PRN 04/09/18 Potassium Chloride [Klor-Con] 20 meq PO BID 04/09/18 Rivaroxaban [Xarelto] 15 mg PO DAILY 04/09/18 Budesonide Inhaler 180 mcg [Pulmicort Inhaler 180 mcg] 1 puff INHALATION BID #1 inhaler 04/17/18 predniSONE tablet 40 mg PO DAILY #10 tab 04/17/18 Following Prescrptions Were Given to Patient: predniSONE tablet 40 mg PO DAILY #10 tab Budesonide Inhaler 180 mcg [Pulmicort Inhaler 180 mcg] 1 puff INHALATION BID #1 inhaler Primary Care Physician: Octaviano Franco Chi, MD [Primary Care Provider] - Please follow up with your Primary Care Physician in: next week Please Follow Up With: Dewayne Pearson DO When: 1-2 weeks Disposition: Care Home facility Minutes spent on discharge:: 45 Patient Condition:: Stable Medical Necessity - Tobacco Use Smoking Status: Former smoker Tobacco Use: Non-smoker Meaningful Use Info Meaningful Use Diagnoses (Choose all that apply): None applicable Code Visit Inpatient E&M: 16039 Disch Hosp
--- NOTE | 2018-04-17 11:50 | CASEMGMT ---
Social Work Note JAGDEEP spoke with Padma at [facility] who states pre-cert has been obtained and pt is able to discharge today. Pt and Physician updated. JAGDEEP faxed completed discharge paperwork to [facility] including transfer to extended care facility, signed medication list and any scripts. Original in SNF folder and copy on pt's chart. JAGDEEP completed [facility]valescent [facility] in [facility]. Original in SNF folder and copy on pt's chart. JAGDEEP arranged transportation through [facility] via cot for 2:30pm. Transportation form on SNF folder and copy on pt's chart. Charge Nurse updated this worker that pt's sister Monika had called and wanted an update if pt discharges. Monika is listed as truck driver salesperson for pt on pt's demographics. JAGDEEP placed a call to Monika and updated her on pt discharging today and transportation time. Pt, RN and Padma at [facility] updated on transportation time. Plan: Pt to discharge to [facility] skilled with [facility] Transporting via cot at 2:30pm Dinga NGUYEN, BIB[employer]ICAL LANGUAGES PROFESSOR
--- NOTE | 2018-04-17 14:49 | NURSING ---
CALLED [facility] AND GAVE REPORT TO SINA CONTE
== END 2018-04-17 14:36 | disposition skilled nursing facility (03) | DRG 193 ==
LOC: ED 09:58 → MS3 14:05
PROVIDERS: Internal Medicine; Emergency Provider Emergency Medicine; Family Provider Family Medicine Geriatric Medicine; PCP Family Medicine Geriatric Medicine; Visit Provider Student in an Organized Health Care Education/Training Program
DX: J10.1 Influenza due to other identified influenza virus with other respiratory manifestations (principal); G93.41 Metabolic encephalopathy; I50.33 Acute on chronic diastolic (congestive) heart failure; N39.0 Urinary tract infection, site not specified; Z68.41 Body mass index [BMI] 40.0-44.9, adult; I13.0 Hypertensive heart and chronic kidney disease with heart failure and stage 1 through stage 4 chronic kidney disease, or unspecified chronic kidney disease; I48.0 Paroxysmal atrial fibrillation; I73.9 Peripheral vascular disease, unspecified; I25.10 Atherosclerotic heart disease of native coronary artery without angina pectoris; B96.1 Klebsiella pneumoniae [K. pneumoniae] as the cause of diseases classified elsewhere; Z16.12 Extended spectrum beta lactamase (ESBL) resistance; E66.01 Morbid (severe) obesity due to excess calories; R21 Rash and other nonspecific skin eruption; R53.81 Other malaise; Z95.5 Presence of coronary angioplasty implant and graft; Z79.01 Long term (current) use of anticoagulants; Z95.1 Presence of aortocoronary bypass graft; G35 Multiple sclerosis; Z87.891 Personal history of nicotine dependence; N18.3 Chronic kidney disease, stage 3 (moderate); E11.22 Type 2 diabetes mellitus with diabetic chronic kidney disease; E78.5 Hyperlipidemia, unspecified; J47.9 Bronchiectasis, uncomplicated; R06.89 Other abnormalities of breathing; R09.02 Hypoxemia
CPT/HCPCS: 36415; 36600; 71045; 71046; 71250; 80048; 80053; 81001; 82375; 82803; 83605; 83690; 83880; 84484; 85025; 85610; 85730; 87040; 87077; 87086; 87088; 87186; 87804; 93005; 93306; 94640; 94667; 94668; 97110; 97116; 97163; 97166; 97530; 97535; 97803; 99285; J7030; P9612; Q9957; A4216; J1940

== ENCOUNTER 2018-04-18 10:15 | Outpatient (RCR) | payer MEDICARE, SELFPAY ==
[2018-04-05 00:52] VITALS: BP 195/97; PULSE 82; RESP 18; TEMP 35.7
[2018-04-09 15:17] VITALS: BMI 40.0
== END 2018-05-05 23:59 ==
LOC: WC 10:15
PROVIDERS: Family Provider Family Medicine Geriatric Medicine; PCP Family Medicine Geriatric Medicine; Referring Provider Podiatrist; Visit Provider Internal Medicine
DX: Z09 Encounter for follow-up examination after completed treatment for conditions other than malignant neoplasm (principal)

== ENCOUNTER → 2018-05-02 14:58 | Outpatient (CLI) | payer MEDICARE, SELFPAY ==
[2018-04-09 15:17] VITALS: BMI 40.0
[2018-05-02 17:23] LABS: Albumin, Serum 2.9 g/dL (3.2-5.0); BUN 23 mg/dL (7-18); BUN/Creat Ratio 18.7 RATIO (10-20); Chloride 104 mmol/L (98-107); Creatinine, Serum 1.23 mg/dL (0.55-1.02); EST Glomerular Filtration Rate 45 mL/min (>60); Est Glom Filt Rate - Afr Amer 55 mL/min (>60); Glucose 99 mg/dL (74-106); Phosphorus 3.3 mg/dL (2.5-4.9); Potassium 4.2 mmol/L (3.5-5.1); Sodium Level 142 mmol/L (136-145)
== END ==
PROVIDERS: Family Provider Family Medicine Geriatric Medicine; PCP Family Medicine Geriatric Medicine; Visit Provider Internal Medicine Nephrology
DX: N17.9 Acute kidney failure, unspecified (principal)
CPT/HCPCS: 36415; 80069

== ENCOUNTER 2018-05-29 11:00 | Outpatient (RCR) | payer MEDICARE, SELFPAY ==
[2018-04-09 15:17] VITALS: BMI 40.0
[2018-05-06 00:47] VITALS: BP 195/97; PULSE 82; RESP 18; TEMP 35.7
[2018-05-22 12:02] VITALS: BP 150/97; PULSE 60; RESP 16; TEMP 36.2; BMI 40.4
--- NOTE | 2018-05-22 13:13 | PCM.WC.HP ---
(1) Ulcer of right foot with fat layer exposed Status: Chronic Current Visit: Yes Code(s): L97.512 - Non-pressure chronic ulcer of other part of right foot with fat layer exposed (2) Venous insufficiency of both lower extremities Status: Acute Current Visit: Yes Code(s): I87.2 - Venous insufficiency (chronic) (peripheral) (3) Bilateral lower extremity edema Status: Chronic Current Visit: Yes Code(s): R60.0 - Localized edema (4) PVD (peripheral vascular disease) Status: Chronic Current Visit: No Code(s): I73.9 - Peripheral vascular disease, unspecified History of Present Illness Chief Complaint: Bilateral lower extremity edema. Right foot ulcer. History of Wound: Ms. Ya is a 73-year-old who presents to the wound center due to new right foot ulcer. Well-known to us here at the wound center due to recurrent lower extremity ulcers secondary to poorly controlled bilateral venous insufficiency. Last seen here over a month ago. Has been in and out of the hospital in the recent weeks. Denies any new concerns at this time. Denies chills, fever or otherwise feeling of unwell. 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) PVD (peripheral vascular disease) (Chronic) Controlled diabetes mellitus (Chronic) Edema, lower extremity (Chronic) Presence of stent in coronary artery (Chronic) PTCA/stent to CX; PTCA/Stent PTCA/stent to prox RCA 05/06; PTCA/LILY in mid to distal RCA 08/29/12 Atherosclerotic heart disease of [place] coronary artery without angina pectoris (Chronic) PTCA/stent to CX; PTCA/Stent PTCA/stent to prox RCA 05/06; PTCA/LILY in mid to distal RCA 08/29/12; CABG x2 ARREGUIN tp LAD and SVG to OM2 01/02/11 S/P CABG (coronary artery bypass graft) (Chronic ~01/02/11) CABG x2 ARREGUIN tp LAD and SVG to OM2 01/02/11 Paroxysmal atrial fibrillation (Chronic) Hyperlipidemia (Chronic) Hypertension (Chronic) Surgical History: angioplasty, appendectomy, cholecystectomy, coronary bypass surgery, hysterectomy, tonsillectomy, - - R ankle surgery with hardware. placement of stents (cardiac or lower extremity. patient is unsure). excision upper lip carcinoma. Incision and drainage and excisional debridement infected traumatic open hematoma wound right anterior leg (90 cm2) and incision and drainage and excisional debridement infected traumatic open hematoma wound left anterior leg (72 cm2) - 12/29/14. Allergies/Adverse Reactions: Allergies codeine Allergy (Unknown, Verified 04/09/18 14:34) Hives ciprofloxacin [From Cipro] Allergy (Verified 04/09/18 12:44) Hives ciprofloxacin HCl [From Cipro] Allergy (Verified 04/09/18 12:44) Hives Latex, Natural Rubber Allergy (Verified 04/09/18 12:44) Rash Penicillins [PCN] Allergy (Verified 04/09/18 12:44) Hives adhesive tape Adverse Reaction (Verified 04/09/18 12:44) Rash Home Medications: Ambulatory Orders Medication Instructions Recorded Amiodarone HCl 200 mg PO DAILY 04/09/18 Duloxetine HCl 60 mg PO DAILY 04/09/18 Furosemide [Lasix] 40 mg PO BIDLX 04/09/18 Iron Polysaccharide Complex 150 mg PO DAILY 04/09/18 [Ferrex 150] Magnesium Oxide [Mag-Ox 400] 400 mg PO BID 04/09/18 Metoprolol Tartrate [Lopressor 50 mg PO BID 04/09/18 (beta man)] Pantoprazole Sodium [Protonix] 40 mg PO DAILY 04/09/18 Phenazopyridine [Pyridium] 200 mg PO TID PRN 04/09/18 Potassium Chloride [Klor-Con] 20 meq PO BID 04/09/18 Rivaroxaban [Xarelto] 15 mg PO DAILY 04/09/18 Budesonide Inhaler 180 mcg 1 puff INHALATION BID #1 inhaler 04/17/18 [Pulmicort Inhaler 180 mcg] Clotrimazole/Betamethasone Dip gm TP BID 05/22/18 [Clotrimazole-Betamethasone Crm] Docusate Sodium 100 mg PO DAILY 05/22/18 Ergocalciferol (Vitamin D2) 50,000 unit PO QWEEK 05/22/18 [Vitamin D2] Gabapentin [Neurontin] 600 mg PO BIDCM 05/22/18 Loperamide [Imodium] 2 mg PO Q6H 05/22/18 Metformin HCl [Metformin HCl ER] 500 mg PO DAILY 05/22/18 Potassium Chloride 10 meq PO BID 05/22/18 - Family History Maternal Family History: Family History (Last Reviewed 04/09/18 @ 14:40 by Douglas Bowman DO) Father Heart disease Mother Hypertension Cancer Brother Diabetes Hypertension Heart Disease, Hypertension Paternal Family History: Family History (Last Reviewed 04/09/18 @ 14:40 by Douglas Bowman DO) Father Heart disease Mother Hypertension Cancer Brother Diabetes Hypertension Heart Disease, Hypertension, - - skin cancer. Sibling Family History: Family History (Last Reviewed 04/09/18 @ 14:40 by Douglas Bowman DO) Father Heart disease Mother Hypertension Cancer Brother Diabetes Hypertension Diabetes Smoking Status: Former smoker Review of Systems Constitutional: Denies: Anorexia, Chills, Fever Eyes: Denies: Blurred vision, Pain HEENT: Denies: Difficulty Swallowing Cardiovascular: Denies: Chest Pain, Chest Pressure Respiratory: Denies: Hemoptysis Gastrointestinal: Denies: Abdominal Pain, Hematemesis, Vomiting Genitourinary: Denies: Hematuria Skin: Denies: Jaundice - Physical Exam Vital Signs Temp Pulse Resp BP 97.1 F L 60 16 150/97 H 05/22/18 12:02 05/22/18 12:02 05/22/18 12:02 05/22/18 12:02 General: Alert, Oriented x3, Cooperative, No apparent distress HEENT: Atraumatic, Normocephalic Oral: Moist Mucosa Neck: Supple Lungs: Normal air movement Cardiovascular: Regular rate, Regular Rhythm Abdomen: Soft, Non Tender, Obese Extremities: No cyanosis, Edema Skin: Ulcer/ Wound Wound Measurements and Assessment WC - Nurse 1 - General Ulcer Measurement Start: 05/22/18 11:57 Freq: Status: Active Protocol: Activity Type Activity Date Activity User E-Sign Co-Sign Detail Recorded Client Recorded Date Recorded By Document 05/22/18 12:02 [facility] [id number] 05/22/18 12:17 [facility] 05/22/18 12:02 Wound Center Nurse 1 [Ulcer Assessment] #14- RT DORSAL FOOT -Combined with other wound No -Current Size (cm) - Length 0.4 -Current Size (cm) - Width 1.5 -Current Size (cm) - Depth 0.1 -Total Square Cm 0.60 -Date of Last Picture (Recall this 05/22/18 field) -Photo Taken Yes -Epithelialization None Present -Tunneling No -Undermining/Tunneling No -Circular Undermining No -Exudate Amt Small -Exudate Type Serous -Wound Margin Flat & Intact -Granulation Amt Small (1-33%) -Granulation Quality Red -Slough/Fibrin Yes -Necrosis Amt Medium (34-66%) -Necrotic Tissue Type Adherent Slough -Texture (Char-wound Skin Appearance) Assessed Scarring -Moisture (Char-wound Skin Appearance Assessed ) Dry/Scaly -Color (Char-wound Skin Appearance) Assessed Erythema -Temperature (Char-wound Skin No Abnormality Appearance) (Pt Warm) -Tenderness on Palpation (Char-wound No Skin Appearance) -Ulcer Cleansing Rinsed/ Irrigated with Saline -Foul Odor after Cleansing No -Anesthetic Used 5% Lidocaine Gel [Edema Assessment] -Lower Limb Edema Present Yes -Right Calf (cm) 47 -Right Ankle (cm) 28.9 -Left Calf (cm) 43 -Left Ankle (cm) 27.8 WC - Nurse 2 - General Ulcer CM Notes Start: 05/22/18 11:57 Freq: Status: Active Protocol: Activity Type Activity Date Activity User E-Sign Co-Sign Detail Recorded Client Recorded Date Recorded By Document 05/22/18 12:31 MW [id number] 05/22/18 12:32 MW 05/22/18 12:31 Wound Center Nurse 2 [Procedure/Treatment] #14- RT DORSAL FOOT -Time 12:31 -Correct Patient Yes -Correct Side, Site, Position Yes -Correct Procedure Yes -Procedure Performed Yes -Type of Procedure Debridement -Clinical Debridement Subcutaneous -Post Debridement Size (cm) - Length 0.3 -Post Debridement Size (cm) - Width 1.0 -Post Debridement Size (cm) - Depth 0.1 -Total Square Cm 0.30 -Wound/Ulcer Outcome Not Healed -Ulcer Cleansing Rinsed/ Irrigated with Saline -Foul Odor after Cleansing No -Bioengineered Tissue No -Bleeding Controlled with Pressure -Offloading No -Treatment Response Procedure Tolerated Well [See Physician Procedure note for Specifics] Pain Scale: 0-10 Numeric [Pain] -Is Patient Pain Free? Yes Musculoskeletal: No Muscle Wasting Neurological: Cranial nerves II-XII grossly intact Psych/Mental Status: Normal Affect Debridement Note Post-Debridement Measurements/Treatment WC - Nurse 2 - General Ulcer CM Notes Start: 05/22/18 11:57 Freq: Status: Active Protocol: Activity Type Activity Date Activity User E-Sign Co-Sign Detail Recorded Client Recorded Date Recorded By Document 05/22/18 12:31 MW [id number] 05/22/18 12:32 MW 05/22/18 12:31 Wound Center Nurse 2 #14- RT DORSAL FOOT -Time 12:31 -Correct Patient Yes -Correct Side, Site, Position Yes -Correct Procedure Yes -Procedure Performed Yes -Type of Procedure Debridement -Clinical Debridement Subcutaneous -Post Debridement Size (cm) - Length 0.3 -Post Debridement Size (cm) - Width 1.0 -Post Debridement Size (cm) - Depth 0.1 -Total Square Cm 0.30 -Wound/Ulcer Outcome Not Healed -Ulcer Cleansing Rinsed/ Irrigated with Saline -Foul Odor after Cleansing No -Bioengineered Tissue No -Bleeding Controlled with Pressure -Offloading No -Treatment Response Procedure Tolerated Well Pain Scale: 0-10 Numeric Is Patient Pain Free? Yes Wound debrided: Right foot Wound Grade/Stage: Stage 2 Type of Debridement: Excisional debridement Anesthesia Used: 4% Lidocaine Solution Depth: Down to and including healthy tissue, in the subcutaneous layer Percentage of wound debrided: 100 Instrument Used: 3mm curette Tissue Removed: Slough and devitalized tissue Severity: Fat Layer Exposed Amount of bleeding with debridement: Mild Bleeding Controlled with: Pressure Patient tolerated procedure well Assessment/Plan Active Problems (Last Updated 04/10/18 @ 19:24 by Nicanor Hoyt DO) Venous insufficiency of both lower extremities (Acute) Bilateral lower extremity edema (Chronic) Ulcer of right foot with fat layer exposed (Chronic) Assessment: Same as above. Plan: Debridement done as documented above. Procedure was well-tolerated. Promogran with Adaptic over top. Bilateral 3M wraps for edema management. Change every third day by home health. Advised to elevate lower extremities when seated and in bed. Optimal blood sugar control. Increased protein intake also recommended. All her questions were answered and she was advised to call with any further questions or concerns. Follow-up in 1 week. This note was generated with [employer] software. It may contain incorrect words, spelling, and punctuation that were not noted in checking the note before signing.
--- NOTE | 2018-05-22 13:18 | HP.PCM_ITS ---
(1) Ulcer of right foot with fat layer exposed Status: Chronic Current Visit: Yes Code(s): L97.512 - Non-pressure chronic ulcer of other part of right foot with fat layer exposed (2) Venous insufficiency of both lower extremities Status: Acute Current Visit: Yes Code(s): I87.2 - Venous insufficiency (chronic) (peripheral) (3) Bilateral lower extremity edema Status: Chronic Current Visit: Yes Code(s): R60.0 - Localized edema (4) PVD (peripheral vascular disease) Status: Chronic Current Visit: No Code(s): I73.9 - Peripheral vascular disease, unspecified History of Present Illness Chief Complaint: Bilateral lower extremity edema. Right foot ulcer. History of Wound: Ms. Ya is a 73-year-old who presents to the wound center due to new right foot ulcer. Well-known to us here at the wound center due to recurrent lower extremity ulcers secondary to poorly controlled bilateral venous insufficiency. Last seen here over a month ago. Has been in and out of the hospital in the recent weeks. Denies any new concerns at this time. Denies chills, fever or otherwise feeling of unwell. 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) PVD (peripheral vascular disease) (Chronic) Controlled diabetes mellitus (Chronic) Edema, lower extremity (Chronic) Presence of stent in coronary artery (Chronic) PTCA/stent to CX; PTCA/Stent PTCA/stent to prox RCA 05/06; PTCA/LILY in mid to distal RCA 08/29/12 Atherosclerotic heart disease of [place] coronary artery without angina pectoris (Chronic) PTCA/stent to CX; PTCA/Stent PTCA/stent to prox RCA 05/06; PTCA/LILY in mid to distal RCA 08/29/12; CABG x2 ARREGUIN tp LAD and SVG to OM2 01/02/11 S/P CABG (coronary artery bypass graft) (Chronic ~01/02/11) CABG x2 ARREGUIN tp LAD and SVG to OM2 01/02/11 Paroxysmal atrial fibrillation (Chronic) Hyperlipidemia (Chronic) Hypertension (Chronic) Surgical History: angioplasty, appendectomy, cholecystectomy, coronary bypass surgery, hysterectomy, tonsillectomy, - - R ankle surgery with hardware. placement of stents (cardiac or lower extremity. patient is unsure). excision upper lip carcinoma. Incision and drainage and excisional debridement infected traumatic open hematoma wound right anterior leg (90 cm2) and incision and drainage and excisional debridement infected traumatic open hematoma wound left anterior leg (72 cm2) - 12/29/14. Allergies/Adverse Reactions: Allergies codeine Allergy (Unknown, Verified 04/09/18 14:34) Hives ciprofloxacin [From Cipro] Allergy (Verified 04/09/18 12:44) Hives ciprofloxacin HCl [From Cipro] Allergy (Verified 04/09/18 12:44) Hives Latex, Natural Rubber Allergy (Verified 04/09/18 12:44) Rash Penicillins [PCN] Allergy (Verified 04/09/18 12:44) Hives adhesive tape Adverse Reaction (Verified 04/09/18 12:44) Rash Home Medications: Ambulatory Orders Medication Instructions Recorded Amiodarone HCl 200 mg PO DAILY 04/09/18 Duloxetine HCl 60 mg PO DAILY 04/09/18 Furosemide [Lasix] 40 mg PO BIDLX 04/09/18 Iron Polysaccharide Complex 150 mg PO DAILY 04/09/18 [Ferrex 150] Magnesium Oxide [Mag-Ox 400] 400 mg PO BID 04/09/18 Metoprolol Tartrate [Lopressor 50 mg PO BID 04/09/18 (beta man)] Pantoprazole Sodium [Protonix] 40 mg PO DAILY 04/09/18 Phenazopyridine [Pyridium] 200 mg PO TID PRN 04/09/18 Potassium Chloride [Klor-Con] 20 meq PO BID 04/09/18 Rivaroxaban [Xarelto] 15 mg PO DAILY 04/09/18 Budesonide Inhaler 180 mcg 1 puff INHALATION BID #1 inhaler 04/17/18 [Pulmicort Inhaler 180 mcg] Clotrimazole/Betamethasone Dip gm TP BID 05/22/18 [Clotrimazole-Betamethasone Crm] Docusate Sodium 100 mg PO DAILY 05/22/18 Ergocalciferol (Vitamin D2) 50,000 unit PO QWEEK 05/22/18 [Vitamin D2] Gabapentin [Neurontin] 600 mg PO BIDCM 05/22/18 Loperamide [Imodium] 2 mg PO Q6H 05/22/18 Metformin HCl [Metformin HCl ER] 500 mg PO DAILY 05/22/18 Potassium Chloride 10 meq PO BID 05/22/18 - Family History Maternal Family History: Family History (Last Reviewed 04/09/18 @ 14:40 by Douglas Bowman DO) Father Heart disease Mother Hypertension Cancer Brother Diabetes Hypertension Heart Disease, Hypertension Paternal Family History: Family History (Last Reviewed 04/09/18 @ 14:40 by Douglas Bowman DO) Father Heart disease Mother Hypertension Cancer Brother Diabetes Hypertension Heart Disease, Hypertension, - - skin cancer. Sibling Family History: Family History (Last Reviewed 04/09/18 @ 14:40 by Douglas Bowman DO) Father Heart disease Mother Hypertension Cancer Brother Diabetes Hypertension Diabetes Smoking Status: Former smoker Review of Systems Constitutional: Denies: Anorexia, Chills, Fever Eyes: Denies: Blurred vision, Pain HEENT: Denies: Difficulty Swallowing Cardiovascular: Denies: Chest Pain, Chest Pressure Respiratory: Denies: Hemoptysis Gastrointestinal: Denies: Abdominal Pain, Hematemesis, Vomiting Genitourinary: Denies: Hematuria Skin: Denies: Jaundice - Physical Exam Vital Signs Temp Pulse Resp BP 97.1 F L 60 16 150/97 H 05/22/18 12:02 05/22/18 12:02 05/22/18 12:02 05/22/18 12:02 General: Alert, Oriented x3, Cooperative, No apparent distress HEENT: Atraumatic, Normocephalic Oral: Moist Mucosa Neck: Supple Lungs: Normal air movement Cardiovascular: Regular rate, Regular Rhythm Abdomen: Soft, Non Tender, Obese Extremities: No cyanosis, Edema Skin: Ulcer/ Wound Wound Measurements and Assessment WC - Nurse 1 - General Ulcer Measurement Start: 05/22/18 11:57 Freq: Status: Active Protocol: Activity Type Activity Date Activity User E-Sign Co-Sign Detail Recorded Client Recorded Date Recorded By Document 05/22/18 12:02 [facility] [id number] 05/22/18 12:17 [facility] 05/22/18 12:02 Wound Center Nurse 1 [Ulcer Assessment] #14- RT DORSAL FOOT -Combined with other wound No -Current Size (cm) - Length 0.4 -Current Size (cm) - Width 1.5 -Current Size (cm) - Depth 0.1 -Total Square Cm 0.60 -Date of Last Picture (Recall this 05/22/18 field) -Photo Taken Yes -Epithelialization None Present -Tunneling No -Undermining/Tunneling No -Circular Undermining No -Exudate Amt Small -Exudate Type Serous -Wound Margin Flat & Intact -Granulation Amt Small (1-33%) -Granulation Quality Red -Slough/Fibrin Yes -Necrosis Amt Medium (34-66%) -Necrotic Tissue Type Adherent Slough -Texture (Char-wound Skin Appearance) Assessed Scarring -Moisture (Char-wound Skin Appearance Assessed ) Dry/Scaly -Color (Char-wound Skin Appearance) Assessed Erythema -Temperature (Char-wound Skin No Abnormality Appearance) (Pt Warm) -Tenderness on Palpation (Char-wound No Skin Appearance) -Ulcer Cleansing Rinsed/ Irrigated with Saline -Foul Odor after Cleansing No -Anesthetic Used 5% Lidocaine Gel [Edema Assessment] -Lower Limb Edema Present Yes -Right Calf (cm) 47 -Right Ankle (cm) 28.9 -Left Calf (cm) 43 -Left Ankle (cm) 27.8 WC - Nurse 2 - General Ulcer CM Notes Start: 05/22/18 11:57 Freq: Status: Active Protocol: Activity Type Activity Date Activity User E-Sign Co-Sign Detail Recorded Client Recorded Date Recorded By Document 05/22/18 12:31 MW [id number] 05/22/18 12:32 MW 05/22/18 12:31 Wound Center Nurse 2 [Procedure/Treatment] #14- RT DORSAL FOOT -Time 12:31 -Correct Patient Yes -Correct Side, Site, Position Yes -Correct Procedure Yes -Procedure Performed Yes -Type of Procedure Debridement -Clinical Debridement Subcutaneous -Post Debridement Size (cm) - Length 0.3 -Post Debridement Size (cm) - Width 1.0 -Post Debridement Size (cm) - Depth 0.1 -Total Square Cm 0.30 -Wound/Ulcer Outcome Not Healed -Ulcer Cleansing Rinsed/ Irrigated with Saline -Foul Odor after Cleansing No -Bioengineered Tissue No -Bleeding Controlled with Pressure -Offloading No -Treatment Response Procedure Tolerated Well [See Physician Procedure note for Specifics] Pain Scale: 0-10 Numeric [Pain] -Is Patient Pain Free? Yes Musculoskeletal: No Muscle Wasting Neurological: Cranial nerves II-XII grossly intact Psych/Mental Status: Normal Affect Debridement Note Post-Debridement Measurements/Treatment WC - Nurse 2 - General Ulcer CM Notes Start: 05/22/18 11:57 Freq: Status: Active Protocol: Activity Type Activity Date Activity User E-Sign Co-Sign Detail Recorded Client Recorded Date Recorded By Document 05/22/18 12:31 MW [id number] 05/22/18 12:32 MW 05/22/18 12:31 Wound Center Nurse 2 #14- RT DORSAL FOOT -Time 12:31 -Correct Patient Yes -Correct Side, Site, Position Yes -Correct Procedure Yes -Procedure Performed Yes -Type of Procedure Debridement -Clinical Debridement Subcutaneous -Post Debridement Size (cm) - Length 0.3 -Post Debridement Size (cm) - Width 1.0 -Post Debridement Size (cm) - Depth 0.1 -Total Square Cm 0.30 -Wound/Ulcer Outcome Not Healed -Ulcer Cleansing Rinsed/ Irrigated with Saline -Foul Odor after Cleansing No -Bioengineered Tissue No -Bleeding Controlled with Pressure -Offloading No -Treatment Response Procedure Tolerated Well Pain Scale: 0-10 Numeric Is Patient Pain Free? Yes Wound debrided: Right foot Wound Grade/Stage: Stage 2 Type of Debridement: Excisional debridement Anesthesia Used: 4% Lidocaine Solution Depth: Down to and including healthy tissue, in the subcutaneous layer Percentage of wound debrided: 100 Instrument Used: 3mm curette Tissue Removed: Slough and devitalized tissue Severity: Fat Layer Exposed Amount of bleeding with debridement: Mild Bleeding Controlled with: Pressure Patient tolerated procedure well Assessment/Plan Active Problems (Last Updated 04/10/18 @ 19:24 by Nicanor Hoyt DO) Venous insufficiency of both lower extremities (Acute) Bilateral lower extremity edema (Chronic) Ulcer of right foot with fat layer exposed (Chronic) Assessment: Same as above. Plan: Debridement done as documented above. Procedure was well-tolerated. Promogran with Adaptic over top. Bilateral 3M wraps for edema management. Change every third day by home health. Advised to elevate lower extremities when seated and in bed. Optimal blood sugar control. Increased protein intake also recommended. All her questions were answered and she was advised to call with any further questions or concerns. Follow-up in 1 week. This note was generated with [employer] software. It may contain incorrect words, spe lling, and punctuation that were not noted in checking the note before signing.
[2018-05-29 11:29] VITALS: BP 153/97; PULSE 59; RESP 18; TEMP 36.4; BMI 40.4
--- NOTE | 2018-05-29 12:56 | PCM.WC.HP ---
(1) Wound of right foot Status: Acute Current Visit: Yes Code(s): S91.301A - Unspecified open wound, right foot, initial encounter Comment: Traumatic,Penetrating with fat layer exposed. (2) Open wound of right elbow Status: Acute Current Visit: Yes Code(s): S51.001A - Unspecified open wound of right elbow, initial encounter Comment: Traumatic. Laceration (3) Ulcer of right foot with fat layer exposed Status: Chronic Current Visit: Yes Code(s): L97.512 - Non-pressure chronic ulcer of other part of right foot with fat layer exposed (4) Venous insufficiency of both lower extremities Status: Acute Current Visit: Yes Code(s): I87.2 - Venous insufficiency (chronic) (peripheral) (5) Bilateral lower extremity edema Status: Chronic Current Visit: Yes Code(s): R60.0 - Localized edema (6) PVD (peripheral vascular disease) Status: Chronic Current Visit: No Code(s): I73.9 - Peripheral vascular disease, unspecified History of Present Illness Chief Complaint: Bilateral lower extremity edema. Right foot wound and right elbow wound. History of Wound: Ms. Ya is a 73-year-old who presents for follow-up of a right foot ulcer which is now healed however, she presents with new right foot wound and right elbow wound.Right foot wound was said to have been from an object dropping on her foot and elbow wound from froma fall and scrape. She denies any other concerns at this time. 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) PVD (peripheral vascular disease) (Chronic) Controlled diabetes mellitus (Chronic) Edema, lower extremity (Chronic) Presence of stent in coronary artery (Chronic) PTCA/stent to CX; PTCA/Stent PTCA/stent to prox RCA 05/06; PTCA/LILY in mid to distal RCA 08/29/12 Atherosclerotic heart disease of [place] coronary artery without angina pectoris (Chronic) PTCA/stent to CX; PTCA/Stent PTCA/stent to prox RCA 05/06; PTCA/LILY in mid to distal RCA 08/29/12; CABG x2 ARREGUIN tp LAD and SVG to OM2 01/02/11 S/P CABG (coronary artery bypass graft) (Chronic ~01/02/11) CABG x2 ARREGUIN tp LAD and SVG to OM2 01/02/11 Paroxysmal atrial fibrillation (Chronic) Hyperlipidemia (Chronic) Hypertension (Chronic) Surgical History: angioplasty, appendectomy, cholecystectomy, coronary bypass surgery, hysterectomy, tonsillectomy, - - R ankle surgery with hardware. placement of stents (cardiac or lower extremity. patient is unsure). excision upper lip carcinoma. Incision and drainage and excisional debridement infected traumatic open hematoma wound right anterior leg (90 cm2) and incision and drainage and excisional debridement infected traumatic open hematoma wound left anterior leg (72 cm2) - 12/29/14. Allergies/Adverse Reactions: Allergies codeine Allergy (Unknown, Verified 04/09/18 14:34) Hives ciprofloxacin [From Cipro] Allergy (Verified 04/09/18 12:44) Hives ciprofloxacin HCl [From Cipro] Allergy (Verified 04/09/18 12:44) Hives Latex, Natural Rubber Allergy (Verified 04/09/18 12:44) Rash Penicillins [PCN] Allergy (Verified 04/09/18 12:44) Hives adhesive tape Adverse Reaction (Verified 04/09/18 12:44) Rash Home Medications: Ambulatory Orders Medication Instructions Recorded Amiodarone HCl 200 mg PO DAILY 04/09/18 Duloxetine HCl 60 mg PO DAILY 04/09/18 Furosemide [Lasix] 40 mg PO BIDLX 04/09/18 Iron Polysaccharide Complex 150 mg PO DAILY 04/09/18 [Ferrex 150] Magnesium Oxide [Mag-Ox 400] 400 mg PO BID 04/09/18 Metoprolol Tartrate [Lopressor 50 mg PO BID 04/09/18 (beta man)] Pantoprazole Sodium [Protonix] 40 mg PO DAILY 04/09/18 Phenazopyridine [Pyridium] 200 mg PO TID PRN 04/09/18 Potassium Chloride [Klor-Con] 20 meq PO BID 04/09/18 Rivaroxaban [Xarelto] 15 mg PO DAILY 04/09/18 Budesonide Inhaler 180 mcg 1 puff INHALATION BID #1 inhaler 04/17/18 [Pulmicort Inhaler 180 mcg] Clotrimazole/Betamethasone Dip gm TP BID 05/22/18 [Clotrimazole-Betamethasone Crm] Docusate Sodium 100 mg PO DAILY 05/22/18 Ergocalciferol (Vitamin D2) 50,000 unit PO QWEEK 05/22/18 [Vitamin D2] Gabapentin [Neurontin] 600 mg PO BIDCM 05/22/18 Loperamide [Imodium] 2 mg PO Q6H 05/22/18 Metformin HCl [Metformin HCl ER] 500 mg PO DAILY 05/22/18 Potassium Chloride 10 meq PO BID 05/22/18 - Family History Maternal Family History: Family History (Last Reviewed 04/09/18 @ 14:40 by Douglas Bowman DO) Father Heart disease Mother Hypertension Cancer Brother Diabetes Hypertension Heart Disease, Hypertension Paternal Family History: Family History (Last Reviewed 04/09/18 @ 14:40 by Douglas Bowman DO) Father Heart disease Mother Hypertension Cancer Brother Diabetes Hypertension Heart Disease, Hypertension, - - skin cancer. Sibling Family History: Family History (Last Reviewed 04/09/18 @ 14:40 by Douglas Bowman DO) Father Heart disease Mother Hypertension Cancer Brother Diabetes Hypertension Diabetes Smoking Status: Former smoker Review of Systems Constitutional: Denies: Anorexia, Chills, Fever, Malaise Eyes: Denies: Blurred vision, Pain, Redness HEENT: Denies: Difficulty Hearing, Difficulty Swallowing Cardiovascular: Denies: Chest Pain, Chest Pressure Respiratory: Denies: Cough, Hemoptysis Gastrointestinal: Denies: Abdominal Pain, Hematemesis, Vomiting Skin: Denies: Jaundice - Physical Exam Vital Signs Temp Pulse Resp BP 97.5 F L 59 L 18 153/97 H 05/29/18 11:29 05/29/18 11:29 05/29/18 11:29 05/29/18 11:29 General: Alert, Oriented x3, Cooperative HEENT: Atraumatic, Normocephalic Oral: Moist Mucosa Neck: Supple Lungs: Normal air movement Cardiovascular: Regular rate, Regular Rhythm Abdomen: Non Tender, Obese Extremities: No cyanosis, Edema Skin: Ulcer/ Wound Wound Measurements and Assessment WC - Nurse 1 - General Ulcer Measurement Start: 05/22/18 11:57 Freq: Status: Active Protocol: Activity Type Activity Date Activity User E-Sign Co-Sign Detail Recorded Client Recorded Date Recorded By Document 05/29/18 11:29 RB [id number] 05/29/18 11:49 RB 05/29/18 11:29 Wound Center Nurse 1 [Ulcer Assessment] 16. R dorsal foot medial -Combined with other wound No -Current Size (cm) - Length 1 -Current Size (cm) - Width 0.4 -Current Size (cm) - Depth 0.1 -Total Square Cm 0.4 -Photo Taken Yes -Tunneling No -Undermining/Tunneling No -Circular Undermining No -Exudate Amt None Present -Wound Margin Distinct, Outline Attached -Granulation Amt None Present (0 %) -Slough/Fibrin Yes -Necrosis Amt Large (67-100%) -Necrotic Tissue Type Eschar -Structure Exposed N/A -Texture (Char-wound Skin Appearance) Assessed -Moisture (Char-wound Skin Appearance Assessed ) -Color (Char-wound Skin Appearance) Assessed -Temperature (Char-wound Skin No Abnormality Appearance) (Pt Warm) -Tenderness on Palpation (Char-wound No Skin Appearance) -Ulcer Cleansing Wound Cleanser -Foul Odor after Cleansing No -Anesthetic Used 5% Lidocaine Gel 15. R elbow -Combined with other wound No -Current Size (cm) - Length 3 -Current Size (cm) - Width 0.6 -Current Size (cm) - Depth 0.1 -Total Square Cm 1.8 -Photo Taken Yes -Tunneling No -Undermining/Tunneling No -Circular Undermining No -Exudate Amt Small -Exudate Type Serosanguineous -Wound Margin Distinct, Outline Attached -Granulation Amt Medium (34-66%) -Granulation Quality [place] Red -Slough/Fibrin No -Necrosis Amt Medium (34-66%) -Necrotic Tissue Type Adherent Slough -Structure Exposed N/A -Texture (Char-wound Skin Appearance) Assessed -Moisture (Char-wound Skin Appearance Assessed ) -Color (Char-wound Skin Appearance) Assessed -Temperature (Char-wound Skin No Abnormality Appearance) (Pt Warm) -Tenderness on Palpation (Char-wound No Skin Appearance) -Ulcer Cleansing Wound Cleanser -Foul Odor after Cleansing No -Anesthetic Used 5% Lidocaine Gel #14- RT DORSAL FOOT -Combined with other wound No -Current Size (cm) - Length 0 -Current Size (cm) - Width 0 -Current Size (cm) - Depth 0 -Total Square Cm 0 -Photo Taken Yes -Epithelialization Large 67-100% [Edema Assessment] -Lower Limb Edema Present Yes -Right Calf (cm) 46.5 -Right Ankle (cm) 27.5 WC - Nurse 2 - General Ulcer CM Notes Start: 05/22/18 11:57 Freq: Status: Active Protocol: Activity Type Activity Date Activity User E-Sign Co-Sign Detail Recorded Client Recorded Date Recorded By Document 05/29/18 11:57 MW [id number] 05/29/18 12:02 MW 05/29/18 11:57 Wound Center Nurse 2 [Procedure/Treatment] 16. R dorsal foot medial -Time 11:57 -Correct Patient Yes -Correct Side, Site, Position Yes -Correct Procedure Yes -Procedure Performed Yes -Type of Procedure Debridement -Clinical Debridement Subcutaneous -Post Debridement Size (cm) - Length 1.0 -Post Debridement Size (cm) - Width 0.5 -Post Debridement Size (cm) - Depth 0.5 -Total Square Cm 0.50 -Wound/Ulcer Outcome Not Healed -Ulcer Cleansing Rinsed/ Irrigated with Saline -Foul Odor after Cleansing No -Bioengineered Tissue No -Bleeding Controlled with Pressure -Offloading No -Treatment Response Procedure Tolerated Well 15. R elbow -Time 11:57 -Correct Patient Yes -Correct Side, Site, Position Yes -Correct Procedure Yes -Procedure Performed Yes -Type of Procedure Debridement -Clinical Debridement Subcutaneous -Post Debridement Size (cm) - Length 3.5 -Post Debridement Size (cm) - Width 1.0 -Post Debridement Size (cm) - Depth 0.1 -Total Square Cm 3.50 -Wound/Ulcer Outcome Not Healed -Ulcer Cleansing Rinsed/ Irrigated with Saline -Foul Odor after Cleansing No -Bioengineered Tissue No -Bleeding Controlled with Pressure -Offloading No -Treatment Response Procedure Tolerated Well #14- RT DORSAL FOOT -Time 11:57 -Correct Patient Yes -Correct Side, Site, Position Yes -Correct Procedure Yes -Procedure Performed No -Post Debridement Size (cm) - Length 0 -Post Debridement Size (cm) - Width 0 -Post Debridement Size (cm) - Depth 0 -Total Square Cm 0 -Wound/Ulcer Outcome Healed- Epithelialized -Bleeding Controlled with NA -Treatment Response Procedure Tolerated Well [See Physician Procedure note for Specifics] Pain Scale: 0-10 Numeric [Pain] -Is Patient Pain Free? Yes Musculoskeletal: No Muscle Wasting Neurological: Cranial nerves II-XII grossly intact Psych/Mental Status: Normal Affect Debridement Note Post-Debridement Measurements/Treatment WC - Nurse 2 - General Ulcer CM Notes Start: 05/22/18 11:57 Freq: Status: Active Protocol: Activity Type Activity Date Activity User E-Sign Co-Sign Detail Recorded Client Recorded Date Recorded By Document 05/22/18 12:31 MW [id number] 05/22/18 12:32 MW Document 05/29/18 11:57 MW [id number] 05/29/18 12:02 MW 05/22/18 05/29/18 12:31 11:57 Wound Center Nurse 2 16. R dorsal foot medial -Time 11:57 -Correct Patient Yes -Correct Side, Site, Position Yes -Correct Procedure Yes -Procedure Performed Yes -Type of Procedure Debridement -Clinical Debridement Subcutaneous -Post Debridement Size (cm) - Length 1.0 -Post Debridement Size (cm) - Width 0.5 -Post Debridement Size (cm) - Depth 0.5 -Total Square Cm 0.50 -Wound/Ulcer Outcome Not Healed -Ulcer Cleansing Rinsed/ Irrigated with Saline -Foul Odor after Cleansing No -Bioengineered Tissue No -Bleeding Controlled with Pressure -Offloading No -Treatment Response Procedure Tolerated Well 15. R elbow -Time 11:57 -Correct Patient Yes -Correct Side, Site, Position Yes -Correct Procedure Yes -Procedure Performed Yes -Type of Procedure Debridement -Clinical Debridement Subcutaneous -Post Debridement Size (cm) - Length 3.5 -Post Debridement Size (cm) - Width 1.0 -Post Debridement Size (cm) - Depth 0.1 -Total Square Cm 3.50 -Wound/Ulcer Outcome Not Healed -Ulcer Cleansing Rinsed/ Irrigated with Saline -Foul Odor after Cleansing No -Bioengineered Tissue No -Bleeding Controlled with Pressure -Offloading No -Treatment Response Procedure Tolerated Well #14- RT DORSAL FOOT -Time 12:31 11:57 -Correct Patient Yes Yes -Correct Side, Site, Position Yes Yes -Correct Procedure Yes Yes -Procedure Performed Yes No -Type of Procedure Debridement -Clinical Debridement Subcutaneous -Post Debridement Size (cm) - Length 0.3 0 -Post Debridement Size (cm) - Width 1.0 0 -Post Debridement Size (cm) - Depth 0.1 0 -Total Square Cm 0.30 0 -Wound/Ulcer Outcome Not Healed Healed- Epithelialized -Ulcer Cleansing Rinsed/ Irrigated with Saline -Foul Odor after Cleansing No -Bioengineered Tissue No -Bleeding Controlled with Pressure NA -Offloading No -Treatment Response Procedure Procedure Tolerated Well Tolerated Well Pain Scale: 0-10 Numeric Is Patient Pain Free? Yes Yes Wound debrided: Right elbow Wound Grade/Stage: Stage II Type of Debridement: Excisional debridement Anesthesia Used: 4% Lidocaine Solution Depth: Down to and including healthy tissue, in the subcutaneous layer Percentage of wound debrided: 100 Instrument Used: 3mm curette Tissue Removed: Biofilm and devitalized tissue Severity: Fat Layer Exposed Amount of bleeding with debridement: Mild Bleeding Controlled with: Pressure Patient tolerated procedure well - Additional Wound Wound debrided: Right dorsal foot Wound Grade/Stage: Stage II Type of Debridement: Excisional debridement Anesthesia Used: 4% Lidocaine Solution Depth: Down to and including healthy tissue, in the subcutaneous layer Percentage of wound debrided: 100 Instrument Used: 3mm curette Tissue Removed: Slough and devitalized tissue Amount of bleeding with debridement: Mild Bleeding Controlled with: Pressure Patient tolerated procedure: Patient tolerated procedure well Assessment/Plan Active Problems (Last Updated 04/10/18 @ 19:24 by Nicanor Hoyt DO) Venous insufficiency of both lower extremities (Acute) Wound of right foot (Acute) Traumatic,Penetrating with fat layer exposed. Open wound of right elbow (Acute) Traumatic. Laceration Bilateral lower extremity edema (Chronic) Ulcer of right foot with fat layer exposed (Chronic) Assessment: Same as above. Right foot ulcer is healed. Plan: Debridement done as documented above. Procedure was well-tolerated. Promogran with Adaptic over top to both. Bilateral 3M wraps for edema management. Even for a week however may take off if pain is noted. Advised to elevate lower extremities when seated and in bed. Optimal blood sugar control. Increased protein intake also recommended. All her questions were answered and she was advised to call with any further questions or concerns. Follow-up in 1 week. This note was generated with [employer] software. It may contain incorrect words, spelling, and punctuation that were not noted in checking the note before signing.
== END 2018-06-04 23:59 ==
LOC: WC 11:00
PROVIDERS: Family Provider Family Medicine Geriatric Medicine; PCP Family Medicine Geriatric Medicine; Referring Provider Podiatrist; Visit Provider Internal Medicine
DX: E11.621 Type 2 diabetes mellitus with foot ulcer (principal); E11.51 Type 2 diabetes mellitus with diabetic peripheral angiopathy without gangrene; R60.0 Localized edema; I87.2 Venous insufficiency (chronic) (peripheral); L97.512 Non-pressure chronic ulcer of other part of right foot with fat layer exposed; I48.0 Paroxysmal atrial fibrillation; E78.5 Hyperlipidemia, unspecified; I25.10 Atherosclerotic heart disease of native coronary artery without angina pectoris; Z95.1 Presence of aortocoronary bypass graft; I10 Essential (primary) hypertension; D50.9 Iron deficiency anemia, unspecified; Z79.899 Other long term (current) drug therapy; Z79.01 Long term (current) use of anticoagulants; Z79.84 Long term (current) use of oral hypoglycemic drugs; Z87.891 Personal history of nicotine dependence; S51.011A Laceration without foreign body of right elbow, initial encounter; W19.XXXA Unspecified fall, initial encounter
CPT/HCPCS: 11042; 29581; 99213; G0463

== ENCOUNTER 2018-06-07 05:15 | Emergency (ER) | payer MEDICARE, SELFPAY ==
[2018-06-05 12:43] VITALS: BMI 40.4
[2018-06-07 05:17] VITALS: BP 187/98; PULSE 55; RESP 18; TEMP 36.7; O2SAT 95; BMI 40.5
--- NOTE | 2018-06-07 05:25 | ED.RN ---
PT FELL AT HOME, HAS A 4CM LACERATION ON RIGHT KNEE. SKIN TEAR ON LEFT HAND AND LEFT ELBOW.
--- NOTE | 2018-06-07 07:17 | ED.DCSUM_ITS ---
- ER Visit Summary Date of Service: 06/07/18 Chief Complaint: Fall History of Present Illness: The patient is a 73 F with history of frequent falls. She got up to use the restroom during the night and fell over her walker he was sitting at bedside. She denies striking her head or loss of consciousness. She has skin tears noted to the left arm. She has a laceration to the right distal thigh. Physical Examination: Blood pressure is 187/98, other vitals unremarkable. Patient sitting upright in bed no acute distress. Head and neck examination was no sign of trauma. Heart is regular rate and rhythm. Lung sounds are clear. Abdomen is soft and nontender. Left upper extremity examination reveals a 6 cm skin tear over the posterior left upper arm. She is a 2 x 2 V-shaped skin tear over the left forearm. No bony tenderness with full range of motion. Right lower extremity examination was a 7 cm laceration to the distal thigh. She has compression dressings noted to both lower legs. Test Results: [] Emergency Department Course and Treatment: The skin tears in the left arm were cleansed and closed with Steri-Strips. Dressing is applied. The right thigh laceration is anesthetized with 8 cc of 1% lidocaine. Wound is irrigated and skin is closed with a total of 12 sutures. She had one horizontal mattress suture placed in the center of the wound. This was followed by 11 simple interrupted sutures on either side. Dressing is applied and wound care is discussed. Patient will follow with the wound center as scheduled. Blood pressure at discharge is 135/68. Treatment Plan: [] Disposition: Discharge Impression: 1. Mechanical fall 2. Right leg laceration status post suture 3. Left arm skin tears This note was generated with [employer] dictation software. It may contain incorrect words, spelling, and punctuation that were not noted in review of the chart prior to signing ED Disposition - Plan for ED Patient: Disposition: Home or Assisted Living Instructions: ED Mechanical Fall, ED Laceration Ext Sutr Stap Tape Referrals: Octaviano Franco Chi, MD [Primary Care Provider] - Additional Instructions: Follow-up with wound center as scheduled. Have stitches removed in 7-10 days.
[2018-06-07 07:35] VITALS: BP 135/68; PULSE 81; RESP 16; O2SAT 97
== END 2018-06-07 08:07 | disposition home or self-care (01) ==
PROVIDERS: Emergency Provider Emergency Medicine; Family Provider Family Medicine Geriatric Medicine; PCP Family Medicine Geriatric Medicine
DX: S71.111A Laceration without foreign body, right thigh, initial encounter (principal); S51.812A Laceration without foreign body of left forearm, initial encounter; S41.112A Laceration without foreign body of left upper arm, initial encounter; Z91.81 History of falling; I25.10 Atherosclerotic heart disease of native coronary artery without angina pectoris; I25.2 Old myocardial infarction; I11.0 Hypertensive heart disease with heart failure; I50.9 Heart failure, unspecified; E11.9 Type 2 diabetes mellitus without complications; G35 Multiple sclerosis; I73.9 Peripheral vascular disease, unspecified; I48.0 Paroxysmal atrial fibrillation; Z86.718 Personal history of other venous thrombosis and embolism; W18.09XA Striking against other object with subsequent fall, initial encounter; Y93.01 Activity, walking, marching and hiking; Y92.003 Bedroom of unspecified non-institutional (private) residence as the place of occurrence of the external cause; Y99.8 Other external cause status
CPT/HCPCS: 12002; 99285

== ENCOUNTER → 2018-06-18 11:13 | Outpatient (CLI) | payer MEDICARE, SELFPAY ==
[2018-06-18 11:13] VITALS: BMI 40.5
[2018-06-18 13:11] LABS: Absolute Lymphocyte Count 2.39 X10^3/ul (0.83-4.51); Absolute Neutrophil Count 9.3 X10^3/uL (2.0-7.7); Basophil# 0.02 X10^3/uL; Basophil% 0.2 % (0-1); Eosinophil# 0.12 X10^3/uL; Eosinophils% 0.9 % (0-5); Hematocrit 38.7 % (37-47); Hemoglobin 11.7 g/dl (12.0-15.0); Lymphocyte # 2.39 X10^3/ul (4.0); Lymphocyte % 18.8 % (19-41); Mean Corp Hgb Conc 30.2 g/gl (32-36); Mean Corpuscular Hgb 27.1 pg (27.0-32.0); Mean Corpuscular Volume 89.6 fL (81-99); Mean Platelet Vol. 10.6 fl (6.2-12.0); Monocyte# 0.84 X10^3/uL; Monocyte% 6.6 % (0-10); Neutrophil # 9.34 X10^3/uL (2.7-7.7); Neutrophil % 73.3 % (47-70); Platelet Count 325 K/mm3 (150-450); RBC Distribution Width CV 15.3 % (11.6-14.6); RBC Distribution Width SD 49.8 fl (35.1-43.9); Red Blood Count 4.32 M/mm3 (4.2-5.4); White Blood Count 12.7 K/mm3 (4.4-11.0)
[2018-06-18 13:13] LABS: POSITIVE COUNT NO; POSITIVE DIFFERENTIAL NO; POSITIVE MORPHOLOGY NO
[2018-06-18 13:32] LABS: ALB/GLOB Ratio 0.9 RATIO (0.9-2.4); AST(SGOT) 17 U/L (15-37); Alanine Aminotransfer ALT/SGPT 25 U/L (13-56); Albumin, Serum 2.9 g/dL (3.2-5.0); Alkaline Phosphatase 105 U/L (45-117); Anion Gap 6 (5-15); BUN 14 mg/dL (7-18); BUN/Creat Ratio 11.3 RATIO (10-20); Calcium,Total 8.7 mg/dL (8.5-10.1); Chloride 106 mmol/L (98-107); Creatinine, Serum 1.24 mg/dL (0.55-1.02); EST Glomerular Filtration Rate 45 mL/min (>60); Est Glom Filt Rate - Afr Amer 54 mL/min (>60); Globulin 3.4 g/dL (2.2-4.2); Glucose 114 mg/dL (74-106); Phosphorus 3.2 mg/dL (2.5-4.9); Potassium 3.8 mmol/L (3.5-5.1); Protein, Total 6.3 g/dL (6.4-8.2); Sodium Level 140 mmol/L (136-145); Thyroid Stim Hormone (TSH) 0.91 uIU/mL (0.358-3.74)
== END ==
LOC: POLAB3 11:14
PROVIDERS: Internal Medicine Nephrology; Family Provider Family Medicine Geriatric Medicine; PCP Family Medicine Geriatric Medicine; Visit Provider Family Medicine Geriatric Medicine
DX: N18.3 Chronic kidney disease, stage 3 (moderate) (principal); R31.9 Hematuria, unspecified; R53.83 Other fatigue
CPT/HCPCS: 36415; 80053; 81001; 84100; 84443; 85025; 87086; 87088; 87186

== ENCOUNTER 2018-07-03 11:45 | Outpatient (RCR) | payer MEDICARE, SELFPAY ==
[2018-06-05 00:57] VITALS: BP 153/97; PULSE 59; RESP 18; TEMP 36.4
[2018-06-05 12:43] VITALS: BP 141/72; PULSE 66; RESP 18; TEMP 35.9; BMI 40.4
--- NOTE | 2018-06-05 13:18 | PN.PCM_ITS ---
(1) Open wound of right elbow Status: Acute Current Visit: Yes Code(s): S51.001A - Unspecified open wound of right elbow, initial encounter Comment: Traumatic. Laceration (2) Venous insufficiency of both lower extremities Status: Acute Current Visit: Yes Code(s): I87.2 - Venous insufficiency (chronic) (peripheral) (3) Wound of right foot Status: Acute Current Visit: Yes Code(s): S91.301A - Unspecified open wound, right foot, initial encounter Comment: Traumatic,Penetrating with fat layer exposed. (4) Bilateral lower extremity edema Status: Chronic Current Visit: Yes Code(s): R60.0 - Localized edema Type of Wound Chief Complaint: Bilateral lower extremity edema. Right foot wound and right elbow wound. History of Wound: Ms. Ya is a 73-year-old who presents for follow-up of a right foot ulcer which is now healed however, she presents with new right foot wound and right elbow wound.Right foot wound was said to have been from an object dropping on her foot and elbow wound from froma fall and scrape. She denies any other concerns at this time. Progress of Wound: Right elbow dressing not done as advised. Home health no longer comming in and patient did not follow dressing instructions. - Physical Exam Vital Signs Temp Pulse Resp BP 96.6 F L 66 18 141/72 H 06/05/18 12:43 06/05/18 12:43 06/05/18 12:43 06/05/18 12:43 General: Alert, Oriented x3, Cooperative, No apparent distress HEENT: Atraumatic, Normocephalic Oral: Moist Mucosa Neck: Supple Lungs: Normal air movement Abdomen: Non Tender, Obese Extremities: No cyanosis, Edema Skin: Ulcer/ Wound Wound Measurements and Assessment WC - Nurse 1 - General Ulcer Measurement Start: 06/05/18 11:48 Freq: Status: Active Protocol: Activity Type Activity Date Activity User E-Sign Co-Sign Detail Recorded Client Recorded Date Recorded By Document 06/05/18 12:43 DV [id number] 06/05/18 12:48 DV 06/05/18 12:43 Wound Center Nurse 1 [Ulcer Assessment] 16. R dorsal foot medial -Combined with other wound No -Current Size (cm) - Length 1.2 -Current Size (cm) - Width 0.7 -Current Size (cm) - Depth 0.2 -Total Square Cm 0.84 -Photo Taken No -Epithelialization None Present -Tunneling No -Undermining/Tunneling No -Circular Undermining No -Classification - Thickness Full Thickness without Exposed Support Structure -Exudate Amt Large -Exudate Type Serosanguineous -Wound Margin Flat & Intact -Granulation Amt None Present (0 %) -Granulation Quality N/A -Slough/Fibrin Yes -Necrosis Amt Large (67-100%) -Necrotic Tissue Type Adherent Slough -Structure Exposed None/Limited to Skin Breakdown -Texture (Char-wound Skin Appearance) Assessed Scarring -Moisture (Char-wound Skin Appearance Assessed ) Maceration Weeping -Color (Char-wound Skin Appearance) Assessed Erythema -Temperature (Char-wound Skin No Abnormality Appearance) (Pt Warm) -Tenderness on Palpation (Char-wound No Skin Appearance) -Ulcer Cleansing Rinsed/ Irrigated with Saline -Foul Odor after Cleansing No -Anesthetic Used 4% Lidocaine Solution 15. R elbow -Combined with other wound No -Current Size (cm) - Length 3.5 -Current Size (cm) - Width 1.0 -Current Size (cm) - Depth 0.1 -Total Square Cm 3.50 -Photo Taken No -Epithelialization None Present -Tunneling No -Undermining/Tunneling No -Circular Undermining No -Classification - Thickness Full Thickness without Exposed Support Structure -Exudate Amt None Present -Wound Margin Flat & Intact -Granulation Amt None Present (0 %) -Granulation Quality N/A -Slough/Fibrin No -Necrosis Amt Large (67-100%) -Necrotic Tissue Type Adherent Slough -Structure Exposed None/Limited to Skin Breakdown -Texture (Char-wound Skin Appearance) Assessed Scarring -Moisture (Char-wound Skin Appearance Assessed ) Dry/Scaly -Color (Char-wound Skin Appearance) Assessed Erythema -Temperature (Char-wound Skin No Abnormality Appearance) (Pt Warm) -Tenderness on Palpation (Char-wound No Skin Appearance) -Ulcer Cleansing Rinsed/ Irrigated with Saline -Foul Odor after Cleansing No -Anesthetic Used 4% Lidocaine Solution [Edema Assessment] -Lower Limb Edema Present Yes WC - Nurse 2 - General Ulcer CM Notes Start: 06/05/18 11:48 Freq: Status: Active Protocol: Activity Type Activity Date Activity User E-Sign Co-Sign Detail Recorded Client Recorded Date Recorded By Document 06/05/18 11:48 MW [id number] 06/05/18 11:54 MW 06/05/18 11:48 Wound Center Nurse 2 [Procedure/Treatment] 16. R dorsal foot medial -Time 11:49 -Correct Patient Yes -Correct Side, Site, Position Yes -Correct Procedure Yes -Procedure Performed Yes -Type of Procedure Debridement -Clinical Debridement Subcutaneous -Post Debridement Size (cm) - Length 1.0 -Post Debridement Size (cm) - Width 0.6 -Post Debridement Size (cm) - Depth 0.4 -Total Square Cm 0.60 -Wound/Ulcer Outcome Not Healed -Ulcer Cleansing Rinsed/ Irrigated with Saline -Foul Odor after Cleansing No -Bioengineered Tissue No -Bleeding Controlled with Pressure -Offloading No -Treatment Response Procedure Tolerated Well 15. R elbow -Time 11:49 -Correct Patient Yes -Correct Side, Site, Position Yes -Correct Procedure Yes -Procedure Performed Yes -Type of Procedure Debridement -Clinical Debridement Subcutaneous -Post Debridement Size (cm) - Length 3.3 -Post Debridement Size (cm) - Width 1.0 -Post Debridement Size (cm) - Depth 0.1 -Total Square Cm 3.30 -Wound/Ulcer Outcome Not Healed -Ulcer Cleansing Rinsed/ Irrigated with Saline -Foul Odor after Cleansing No -Bioengineered Tissue No -Bleeding Controlled with Pressure -Offloading No -Treatment Response Procedure Tolerated Well [See Physician Procedure note for Specifics] Pain Scale: 0-10 Numeric [Pain] -Is Patient Pain Free? Yes Musculoskeletal: No Muscle Wasting Neurological: Cranial nerves II-XII grossly intact Psych/Mental Status: Normal Affect Debridement Note Post-Debridement Measurements/Treatment WC - Nurse 2 - General Ulcer CM Notes Start: 06/05/18 11:48 Freq: Status: Active Protocol: Activity Type Activity Date Activity User E-Sign Co-Sign Detail Recorded Client Recorded Date Recorded By Document 06/05/18 11:48 MW [id number] 06/05/18 11:54 MW 06/05/18 11:48 Wound Center Nurse 2 16. R dorsal foot medial -Time 11:49 -Correct Patient Yes -Correct Side, Site, Position Yes -Correct Procedure Yes -Procedure Performed Yes -Type of Procedure Debridement -Clinical Debridement Subcutaneous -Post Debridement Size (cm) - Length 1.0 -Post Debridement Size (cm) - Width 0.6 -Post Debridement Size (cm) - Depth 0.4 -Total Square Cm 0.60 -Wound/Ulcer Outcome Not Healed -Ulcer Cleansing Rinsed/ Irrigated with Saline -Foul Odor after Cleansing No -Bioengineered Tissue No -Bleeding Controlled with Pressure -Offloading No -Treatment Response Procedure Tolerated Well 15. R elbow -Time 11:49 -Correct Patient Yes -Correct Side, Site, Position Yes -Correct Procedure Yes -Procedure Performed Yes -Type of Procedure Debridement -Clinical Debridement Subcutaneous -Post Debridement Size (cm) - Length 3.3 -Post Debridement Size (cm) - Width 1.0 -Post Debridement Size (cm) - Depth 0.1 -Total Square Cm 3.30 -Wound/Ulcer Outcome Not Healed -Ulcer Cleansing Rinsed/ Irrigated with Saline -Foul Odor after Cleansing No -Bioengineered Tissue No -Bleeding Controlled with Pressure -Offloading No -Treatment Response Procedure Tolerated Well Pain Scale: 0-10 Numeric Is Patient Pain Free? Yes Wound debrided: Right elbow Wound Grade/Stage: Stage II Type of Debridement: Excisional debridement Anesthesia Used: 4% Lidocaine Solution Depth: Down to and including healthy tissue, in the subcutaneous layer Percentage of wound debrided: 100 Instrument Used: 3mm curette Tissue Removed: Slough and devitalized tissue Severity: Fat Layer Exposed Amount of bleeding with debridement: Mild Bleeding Controlled with: Pressure Patient tolerated procedure well - Additional Wound Wound debrided: Right foot Wound Grade/Stage: Stage II Type of Debridement: Excisional debridement Anesthesia Used: 4% Lidocaine Solution Depth: Down to and including healthy tissue, in the subcutaneous layer Percentage of wound debrided: 100 Instrument Used: 3mm curette Tissue Removed: Slough and devitalized tissue Severity: Fat Layer Exposed Amount of bleeding with debridement: Mild Bleeding Controlled with: Pressure Patient tolerated procedure: Patient tolerated procedure well Assessment/Plan Active Problems (Last Updated 04/10/18 @ 19:24 by Nicanor Hoyt DO) Venous insufficiency of both lower extremities (Acute) Wound of right foot (Acute) Traumatic,Penetrating with fat layer exposed. Open wound of right elbow (Acute) Traumatic. Laceration Bilateral lower extremity edema (Chronic) Assessment: Same as above. Plan: Debridement done as documented above. Procedure was well-tolerated. Promogran with Adaptic over top to both. Compliance with dressing instructions very strongly recommended. Bilateral 3M wraps for edema management. Follow-up on Sunday for nurse visit to change 3M wraps and right foot dressing. Advised to elevate lower extremities when seated and in bed. Optimal blood sugar control. Increased protein intake also recommended. All her questions were answered and she was advised to call with any further questions or concerns. Follow-up in 1 week. This note was generated with [employer] dictation software. It may contain incorrect words, spelling, and punctuation that were not noted in checking the note before signing.
[2018-06-12 12:12] VITALS: BP 155/88; PULSE 66; RESP 18; TEMP 36.6; BMI 40.4
--- NOTE | 2018-06-12 12:16 | WC ---
R ELBOW SECURED WITH HOSPITAL GRADE GLUE AT ED. WOUND NOT MEASURED S/T GLUE.
--- NOTE | 2018-06-12 12:27 | WC ---
R medial knee sutures intact incision well approximated. pt states she fell on June 07 and went to ED for sutures and steri strips
--- NOTE | 2018-06-12 16:53 | HP.PCM_ITS ---
(1) Open wound of right elbow Status: Acute Current Visit: Yes Code(s): S51.001A - Unspecified open wound of right elbow, initial encounter Comment: Traumatic. Laceration (2) Venous insufficiency of both lower extremities Status: Acute Current Visit: Yes Code(s): I87.2 - Venous insufficiency (chronic) (peripheral) (3) Wound of right foot Status: Acute Current Visit: Yes Code(s): S91.301A - Unspecified open wound, right foot, initial encounter Comment: Traumatic,Penetrating with fat layer exposed. (4) Bilateral lower extremity edema Status: Chronic Current Visit: Yes Code(s): R60.0 - Localized edema (5) Open wound of left elbow Status: Acute Current Visit: Yes Code(s): S51.002A - Unspecified open wound of left elbow, initial encounter Comment: Traumatic, laceration. History of Present Illness Chief Complaint: New left elbow wound. Bilateral lower extremity edema. Right foot wound and right elbow wound. History of Wound: Ms. Ya is a 73-year-old who presents with a new left elbow and right knee wound after recent fall in her apartment. States that she tripped over her walker. Was seen in the emergency room status post fall and had sutures to her right knee and Steri-Strips to her left elbow. Right elbow wound had been previously improving but opened up again after fall. She had glue applied in the emergency room. She feels well otherwise denies chills, fever or feeling of unwell. 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 placement of stents (cardiac or lower extremity. patient is unsure). excision upper lip carcinoma. Incision and drainage and excisional debridement infected traumatic open hematoma wound right anterior leg (90 cm2) and incision and drainage and excisional debridement infected traumatic open hematoma wound left anterior leg (72 cm2) - 12/29/14. Allergies/Adverse Reactions: Allergies codeine Allergy (Unknown, Verified 04/09/18 14:34) Hives ciprofloxacin [From Cipro] Allergy (Verified 04/09/18 12:44) Hives ciprofloxacin HCl [From Cipro] Allergy (Verified 04/09/18 12:44) Hives Latex, Natural Rubber Allergy (Verified 04/09/18 12:44) Rash Penicillins [PCN] Allergy (Verified 04/09/18 12:44) Hives adhesive tape Adverse Reaction (Verified 04/09/18 12:44) Rash Home Medications: Ambulatory Orders Medication Instructions Recorded Amiodarone HCl 200 mg PO DAILY 04/09/18 Duloxetine HCl 60 mg PO DAILY 04/09/18 Furosemide [Lasix] 40 mg PO BIDLX 04/09/18 Iron Polysaccharide Complex 150 mg PO DAILY 04/09/18 [Ferrex 150] Magnesium Oxide [Mag-Ox 400] 400 mg PO BID 04/09/18 Metoprolol Tartrate [Lopressor 50 mg PO BID 04/09/18 (beta man)] Pantoprazole Sodium [Protonix] 40 mg PO DAILY 04/09/18 Phenazopyridine [Pyridium] 200 mg PO TID PRN 04/09/18 Potassium Chloride [Klor-Con] 20 meq PO BID 04/09/18 Rivaroxaban [Xarelto] 15 mg PO DAILY 04/09/18 Budesonide Inhaler 180 mcg 1 puff INHALATION BID #1 inhaler 04/17/18 [Pulmicort Inhaler 180 mcg] Clotrimazole/Betamethasone Dip gm TP BID 05/22/18 [Clotrimazole-Betamethasone Crm] Docusate Sodium 100 mg PO DAILY 05/22/18 Ergocalciferol (Vitamin D2) 50,000 unit PO QWEEK 05/22/18 [Vitamin D2] Gabapentin [Neurontin] 600 mg PO BIDCM 05/22/18 Loperamide [Imodium] 2 mg PO Q6H 05/22/18 Metformin HCl [Metformin HCl ER] 500 mg PO DAILY 05/22/18 Potassium Chloride 10 meq PO BID 05/22/18 - Family History Maternal Family History: Family History (Last Reviewed 04/09/18 @ 14:40 by Douglas Bowman DO) Father Heart disease Mother Hypertension Cancer Brother Diabetes Hypertension Heart Disease, Hypertension Paternal Family History: Family History (Last Reviewed 04/09/18 @ 14:40 by Douglas Bowman DO) Father Heart disease Mother Hypertension Cancer Brother Diabetes Hypertension Heart Disease, Hypertension, - - skin cancer. Sibling Family History: Family History (Last Reviewed 04/09/18 @ 14:40 by Douglas Bowman DO) Father Heart disease Mother Hypertension Cancer Brother Diabetes Hypertension Diabetes Smoking Status: Former smoker Review of Systems Constitutional: Denies: Anorexia, Chills, Fever Eyes: Denies: Blurred vision, Pain, Redness HEENT: Denies: Difficulty Swallowing Cardiovascular: Denies: Chest Pain, Chest Pressure, Chest Tightness Respiratory: Denies: Hemoptysis Gastrointestinal: Denies: Abdominal Pain, Hematemesis, Vomiting Musculoskeletal: Reports: Arm Pain Skin: Denies: Jaundice - Physical Exam Vital Signs Temp Pulse Resp BP 98 F 66 18 155/88 H 06/12/18 12:12 06/12/18 12:12 06/12/18 12:12 06/12/18 12:12 General: Alert, Oriented x3, Cooperative, No apparent distress HEENT: Atraumatic, Normocephalic Oral: Moist Mucosa Neck: Supple Lungs: Normal air movement Abdomen: Soft, Non Tender, Obese Extremities: No cyanosis, Edema Skin: Ulcer/ Wound Wound Measurements and Assessment WC - Nurse 1 - General Ulcer Measurement Start: 06/05/18 11:48 Freq: Status: Active Protocol: Activity Type Activity Date Activity User E-Sign Co-Sign Detail Recorded Client Recorded Date Recorded By Document 06/12/18 12:12 RB [id number] 06/12/18 12:26 RB 06/12/18 12:12 Wound Center Nurse 1 [Ulcer Assessment] 17. L upper arm lateral -Combined with other wound No -Current Size (cm) - Length 5.5 -Current Size (cm) - Width 1.2 -Current Size (cm) - Depth 0.1 -Total Square Cm 6.60 -Photo Taken Yes -Tunneling No -Undermining/Tunneling No -Circular Undermining No -Exudate Amt Small -Exudate Type Serosanguineous -Wound Margin Distinct, Outline Attached -Granulation Amt Medium (34-66%) -Granulation Quality [place] Red -Slough/Fibrin Yes -Necrosis Amt Small (1-33%) -Necrotic Tissue Type Adherent Slough -Structure Exposed N/A -Texture (Char-wound Skin Appearance) Assessed Friable -Moisture (Char-wound Skin Appearance Assessed ) -Color (Char-wound Skin Appearance) Assessed -Temperature (Char-wound Skin No Abnormality Appearance) (Pt Warm) -Tenderness on Palpation (Char-wound No Skin Appearance) -Ulcer Cleansing Wound Cleanser -Foul Odor after Cleansing No -Anesthetic Used 5% Lidocaine Gel 16. R dorsal foot medial -Combined with other wound No -Current Size (cm) - Length 1.1 -Current Size (cm) - Width 0.7 -Current Size (cm) - Depth 0.2 -Total Square Cm 0.77 -Tunneling No -Undermining/Tunneling No -Circular Undermining No -Exudate Amt Small -Exudate Type Serosanguineous -Wound Margin Distinct, Outline Attached -Granulation Amt Medium (34-66%) -Granulation Quality [place] -Slough/Fibrin Yes -Necrosis Amt Small (1-33%) -Necrotic Tissue Type Adherent Slough -Structure Exposed N/A -Texture (Char-wound Skin Appearance) Assessed -Moisture (Char-wound Skin Appearance Assessed ) -Color (Char-wound Skin Appearance) Assessed -Temperature (Char-wound Skin No Abnormality Appearance) (Pt Warm) -Tenderness on Palpation (Char-wound No Skin Appearance) -Ulcer Cleansing Wound Cleanser -Anesthetic Used 5% Lidocaine Gel 15. R elbow -Combined with other wound No -Current Size (cm) - Length 0.1 -Current Size (cm) - Width 0.1 -Current Size (cm) - Depth 0.1 -Total Square Cm 0.01 -Tunneling No -Undermining/Tunneling No -Circular Undermining No [Edema Assessment] -Lower Limb Edema Present Yes -Right Calf (cm) 41 -Right Ankle (cm) 27 -Left Calf (cm) 38.5 -Left Ankle (cm) 24.5 06/12/18 12:16 Wound Center by Kailyn Celeste ELBOW SECURED WITH HOSPITAL GRADE GLUE AT ED. WOUND NOT MEASURED S/T GLUE. Initialized on 06/12/18 12:16 - END OF NOTE WC - Nurse 2 - General Ulcer CM Notes Start: 06/05/18 11:48 Freq: Status: Active Protocol: Activity Type Activity Date Activity User E-Sign Co-Sign Detail Recorded Client Recorded Date Recorded By Document 06/12/18 12:36 MW [id number] 06/12/18 12:49 MW 06/12/18 12:36 Wound Center Nurse 2 [Procedure/Treatment] 17. L upper arm lateral -Time 12:43 -Correct Patient Yes -Correct Side, Site, Position Yes -Correct Procedure Yes -Procedure Performed Yes -Type of Procedure Debridement -Clinical Debridement Subcutaneous -Post Debridement Size (cm) - Length 6.0 -Post Debridement Size (cm) - Width 1.2 -Post Debridement Size (cm) - Depth 0.1 -Total Square Cm 7.20 -Wound/Ulcer Outcome Not Healed -Ulcer Cleansing Rinsed/ Irrigated with Saline -Foul Odor after Cleansing No -Bioengineered Tissue No -Bleeding Controlled with Pressure -Offloading No -Treatment Response Procedure Tolerated Well 16. R dorsal foot medial -Time 12:43 -Correct Patient Yes -Correct Side, Site, Position Yes -Correct Procedure Yes -Procedure Performed Yes -Type of Procedure Debridement -Clinical Debridement Subcutaneous -Post Debridement Size (cm) - Length 0.8 -Post Debridement Size (cm) - Width 0.5 -Post Debridement Size (cm) - Depth 0.1 -Total Square Cm 0.40 -Wound/Ulcer Outcome Not Healed -Ulcer Cleansing Rinsed/ Irrigated with Saline -Foul Odor after Cleansing No -Bioengineered Tissue No -Bleeding Controlled with Pressure -Offloading No -Treatment Response Procedure Tolerated Well 15. R elbow -Time 12:37 -Correct Patient Yes -Correct Side, Site, Position Yes -Correct Procedure Yes -Procedure Performed Yes -Post Debridement Size (cm) - Length 0.5 -Post Debridement Size (cm) - Width 1.0 -Post Debridement Size (cm) - Depth 0.1 -Total Square Cm 0.50 -Wound/Ulcer Outcome Not Healed -Ulcer Cleansing Rinsed/ Irrigated with Saline -Foul Odor after Cleansing No -Bioengineered Tissue No -Bleeding Controlled with Pressure -Offloading No -Treatment Response Procedure Tolerated Well [See Physician Procedure note for Specifics] Pain Scale: 0-10 Numeric [Pain] -Is Patient Pain Free? Yes Musculoskeletal: No Muscle Wasting Neurological: Cranial nerves II-XII grossly intact Psych/Mental Status: Normal Affect Debridement Note Post-Debridement Measurements/Treatment WC - Nurse 2 - General Ulcer CM Notes Start: 06/05/18 11:48 Freq: Status: Active Protocol: Activity Type Activity Date Activity User E-Sign Co-Sign Detail Recorded Client Recorded Date Recorded By Document 06/05/18 11:48 MW [id number] 06/05/18 11:54 MW Document 06/12/18 12:36 MW [id number] 06/12/18 12:49 MW 06/05/18 06/12/18 11:48 12:36 Wound Center Nurse 2 17. L upper arm lateral -Time 12:43 -Correct Patient Yes -Correct Side, Site, Position Yes -Correct Procedure Yes -Procedure Performed Yes -Type of Procedure Debridement -Clinical Debridement Subcutaneous -Post Debridement Size (cm) - Length 6.0 -Post Debridement Size (cm) - Width 1.2 -Post Debridement Size (cm) - Depth 0.1 -Total Square Cm 7.20 -Wound/Ulcer Outcome Not Healed -Ulcer Cleansing Rinsed/ Irrigated with Saline -Foul Odor after Cleansing No -Bioengineered Tissue No -Bleeding Controlled with Pressure -Offloading No -Treatment Response Procedure Tolerated Well 16. R dorsal foot medial -Time 11:49 12:43 -Correct Patient Yes Yes -Correct Side, Site, Position Yes Yes -Correct Procedure Yes Yes -Procedure Performed Yes Yes -Type of Procedure Debridement Debridement -Clinical Debridement Subcutaneous Subcutaneous -Post Debridement Size (cm) - Length 1.0 0.8 -Post Debridement Size (cm) - Width 0.6 0.5 -Post Debridement Size (cm) - Depth 0.4 0.1 -Total Square Cm 0.60 0.40 -Wound/Ulcer Outcome Not Healed Not Healed -Ulcer Cleansing Rinsed/ Rinsed/ Irrigated with Irrigated with Saline Saline -Foul Odor after Cleansing No No -Bioengineered Tissue No No -Bleeding Controlled with Pressure Pressure -Offloading No No -Treatment Response Procedure Procedure Tolerated Well Tolerated Well 15. R elbow -Time 11:49 12:37 -Correct Patient Yes Yes -Correct Side, Site, Position Yes Yes -Correct Procedure Yes Yes -Procedure Performed Yes Yes -Type of Procedure Debridement -Clinical Debridement Subcutaneous -Post Debridement Size (cm) - Length 3.3 0.5 -Post Debridement Size (cm) - Width 1.0 1.0 -Post Debridement Size (cm) - Depth 0.1 0.1 -Total Square Cm 3.30 0.50 -Wound/Ulcer Outcome Not Healed Not Healed -Ulcer Cleansing Rinsed/ Rinsed/ Irrigated with Irrigated with Saline Saline -Foul Odor after Cleansing No No -Bioengineered Tissue No No -Bleeding Controlled with Pressure Pressure -Offloading No No -Treatment Response Procedure Procedure Tolerated Well Tolerated Well Pain Scale: 0-10 Numeric Is Patient Pain Free? Yes Yes Wound debrided: Right elbow Wound Grade/Stage: Stage II Type of Debridement: Excisional debridement Anesthesia Used: 4% Lidocaine Solution Depth: Down to and including healthy tissue, in the subcutaneous layer Percentage of wound debrided: 100 Instrument Used: 3mm curette Tissue Removed: Slough and devitalized tissue. Severity: Fat Layer Exposed Amount of bleeding with debridement: Mild Bleeding Controlled with: Pressure Patient tolerated procedure well - Additional Wound Wound debrided: Right foot (dorsal) Wound Grade/Stage: Stage II Type of Debridement: Excisional debridement Anesthesia Used: 4% Lidocaine Solution Depth: Down to and including healthy tissue, in the subcutaneous layer Percentage of wound debrided: 100 Instrument Used: 3mm curette Tissue Removed: Slough and devitalized tissue Severity: Fat Layer Exposed Amount of bleeding with debridement: Mild Bleeding Controlled with: Pressure Patient tolerated procedure: Patient tolerated procedure well - Additional Wound Wound debrided: Left elbow Wound Grade/Stage: Stage II Type of Debridement: Excisional debridement Anesthesia Used: 4% Lidocaine Solution Depth: Down to and including healthy tissue, in the subcutaneous layer Percentage of wound debrided: 100 Instrument Used: 5mm curette, Forceps, - - Scissors Tissue Removed: Slough and devitalized tissue Severity: Fat Layer Exposed Amount of bleeding with debridement: Mild Bleeding Controlled with: Pressure Patient tolerated procedure: Patient tolerated procedure well Assessment/Plan Active Problems (Last Updated 04/10/18 @ 19:24 by Nicanor Hoyt DO) Venous insufficiency of both lower extremities (Acute) Wound of right foot (Acute) Traumatic,Penetrating with fat layer exposed. Open wound of right elbow (Acute) Traumatic. Laceration Open wound of left elbow (Acute) Traumatic, laceration. Bilateral lower extremity edema (Chronic) Assessment: Same as above. Plan: Debridement done as documented above. Procedure was well-tolerated. Promogran with Adaptic over top to all ulcers and Adaptic and gauze to right knee. Change both elbows daily. Compliance with dressing instructions very strongly recommended. Bilateral 3M wraps for edema management. Follow-up on Sunday for nurse visit to change 3M wraps and right foot dressing. Advised to elevate lower extremities when seated and in bed. Optimal blood sugar control. Increased protein intake also recommended. All her questions were answered and she was advised to call with any further questions or concerns. Follow-up in 1 week. This note was generated with [employer] software. It may contain incorrect words, spelling, and punctuation that were not noted in checking the note before signing.
[2018-06-14 13:42] VITALS: BP 158/83; PULSE 63; RESP 18; TEMP 36.6; BMI 40.4
[2018-06-19 11:37] VITALS: BP 184/71; PULSE 67; RESP 18; TEMP 36.1; BMI 40.4
--- NOTE | 2018-06-19 12:54 | PN.PCM_ITS ---
(1) Open wound of right elbow Status: Acute Current Visit: Yes Code(s): S51.001A - Unspecified open wound of right elbow, initial encounter Comment: Traumatic. Laceration (2) Venous insufficiency of both lower extremities Status: Acute Current Visit: Yes Code(s): I87.2 - Venous insufficiency (chronic) (peripheral) (3) Wound of right foot Status: Acute Current Visit: Yes Code(s): S91.301A - Unspecified open wound, right foot, initial encounter Comment: Traumatic,Penetrating with fat layer exposed. (4) Bilateral lower extremity edema Status: Chronic Current Visit: Yes Code(s): R60.0 - Localized edema (5) Open wound of left elbow Status: Acute Current Visit: Yes Code(s): S51.002A - Unspecified open wound of left elbow, initial encounter Comment: Traumatic, laceration. (6) Open wound of right knee Status: Acute Current Visit: Yes Code(s): S81.001A - Unspecified open wound, right knee, initial encounter Comment: Traumatic,penetratiung with fat layer exposed. Type of Wound Chief Complaint: New left elbow wound. Bilateral lower extremity edema. Right foot wound and right elbow wound. History of Wound: Ms. Ya is a 73-year-old who presents with a new left elbow and right knee wound after recent fall in her apartment. States that she tripped over her walker. Was seen in the emergency room status post fall and had sutures to her right knee and Steri-Strips to her left elbow. Right elbow wound had been previously improving but opened up again after fall. She had glue applied in the emergency room. She feels well otherwise denies chills, fever or feeling of unwell. Progress of Wound: Right elbow healed. Right knee sutures removed by PCP however skin not well apposed/ broken down. also been managed for right knee cellulitis. - Physical Exam Vital Signs Temp Pulse Resp BP 97 F L 67 18 184/71 H 06/19/18 11:37 06/19/18 11:37 06/19/18 11:37 06/19/18 11:37 General: Alert, Oriented x3, Cooperative, No apparent distress HEENT: Atraumatic, Normocephalic Oral: Moist Mucosa Neck: Supple Lungs: Normal air movement Abdomen: Obese Extremities: No cyanosis, Edema Skin: Ulcer/ Wound Wound Measurements and Assessment WC - Nurse 1 - General Ulcer Measurement Start: 06/05/18 11:48 Freq: Status: Active Protocol: Activity Type Activity Date Activity User E-Sign Co-Sign Detail Recorded Client Recorded Date Recorded By Document 06/19/18 11:37 RB [id number] 06/19/18 11:58 RB 06/19/18 11:37 Wound Center Nurse 1 [Ulcer Assessment] 18. R medial superior knee -Combined with other wound No -Current Size (cm) - Length 2.4 -Current Size (cm) - Width 4.4 -Current Size (cm) - Depth 0.2 -Total Square Cm 10.56 -Tunneling No -Undermining/Tunneling No -Circular Undermining No -Exudate Amt Small -Exudate Type Serosanguineous -Wound Margin Distinct, Outline Attached -Granulation Amt Large (67-100%) -Granulation Quality [place] -Slough/Fibrin Yes -Necrosis Amt Medium (34-66%) -Necrotic Tissue Type Adherent Slough -Structure Exposed N/A -Texture (Char-wound Skin Appearance) Assessed -Moisture (Char-wound Skin Appearance Assessed ) -Color (Char-wound Skin Appearance) Erythema -Temperature (Char-wound Skin No Abnormality Appearance) (Pt Warm) -Tenderness on Palpation (Char-wound No Skin Appearance) -Ulcer Cleansing Wound Cleanser -Foul Odor after Cleansing No -Anesthetic Used 4% Lidocaine Solution 17. L upper arm lateral -Combined with other wound No -Current Size (cm) - Length 5.5 -Current Size (cm) - Width 1.4 -Current Size (cm) - Depth 0.1 -Total Square Cm 7.70 -Tunneling No -Undermining/Tunneling No -Circular Undermining No -Exudate Amt Small -Exudate Type Serosanguineous -Wound Margin Distinct, Outline Attached -Granulation Amt Large (67-100%) -Granulation Quality [place] -Slough/Fibrin Yes -Necrosis Amt Small (1-33%) -Necrotic Tissue Type Adherent Slough -Structure Exposed N/A -Texture (Char-wound Skin Appearance) Assessed -Moisture (Char-wound Skin Appearance Assessed ) -Color (Char-wound Skin Appearance) Assessed -Temperature (Char-wound Skin No Abnormality Appearance) (Pt Warm) -Tenderness on Palpation (Char-wound No Skin Appearance) -Ulcer Cleansing Wound Cleanser -Foul Odor after Cleansing No -Anesthetic Used 4% Lidocaine Solution 16. R dorsal foot medial -Combined with other wound No -Current Size (cm) - Length 1 -Current Size (cm) - Width 0.8 -Current Size (cm) - Depth 0.1 -Total Square Cm 0.8 -Epithelialization Small 1-33% -Tunneling No -Undermining/Tunneling No -Circular Undermining No -Exudate Amt Small -Exudate Type Serosanguineous -Wound Margin Distinct, Outline Attached -Granulation Amt Large (67-100%) -Granulation Quality [place] -Slough/Fibrin Yes -Necrosis Amt Small (1-33%) -Necrotic Tissue Type Adherent Slough -Structure Exposed N/A -Texture (Char-wound Skin Appearance) Assessed -Moisture (Char-wound Skin Appearance Dry/Scaly ) -Color (Char-wound Skin Appearance) Assessed -Temperature (Char-wound Skin No Abnormality Appearance) (Pt Warm) -Tenderness on Palpation (Char-wound No Skin Appearance) -Ulcer Cleansing Wound Cleanser -Foul Odor after Cleansing No -Anesthetic Used 4% Lidocaine Solution 15. R elbow -Combined with other wound No -Current Size (cm) - Length 0 -Current Size (cm) - Width 0 -Current Size (cm) - Depth 0 -Total Square Cm 0 -Photo Taken Yes -Epithelialization Large 67-100% -Exudate Amt None Present -Granulation Amt Large (67-100%) -Granulation Quality [place] -Slough/Fibrin No -Structure Exposed N/A -Texture (Char-wound Skin Appearance) Assessed -Moisture (Char-wound Skin Appearance Assessed ) -Color (Char-wound Skin Appearance) Assessed -Temperature (Char-wound Skin No Abnormality Appearance) (Pt Warm) -Tenderness on Palpation (Char-wound No Skin Appearance) -Ulcer Cleansing Wound Cleanser [Edema Assessment] -Lower Limb Edema Present Yes -Right Calf (cm) 40 -Right Ankle (cm) 27 -Left Calf (cm) 42.5 -Left Ankle (cm) 25 WC - Nurse 2 - General Ulcer CM Notes Start: 06/05/18 11:48 Freq: Status: Active Protocol: Activity Type Activity Date Activity User E-Sign Co-Sign Detail Recorded Client Recorded Date Recorded By Document 06/19/18 12:20 MW [id number] 06/19/18 12:36 MW 06/19/18 12:20 Wound Center Nurse 2 [Procedure/Treatment] 18. R medial superior knee -Time 12:25 -Correct Patient Yes -Correct Side, Site, Position Yes -Correct Procedure Yes -Procedure Performed Yes -Type of Procedure Debridement -Clinical Debridement Subcutaneous -Post Debridement Size (cm) - Length 3.0 -Post Debridement Size (cm) - Width 4.0 -Post Debridement Size (cm) - Depth 0.1 -Total Square Cm 12.00 -Wound/Ulcer Outcome Not Healed -Ulcer Cleansing Rinsed/ Irrigated with Saline -Foul Odor after Cleansing No -Bioengineered Tissue No -Bleeding Controlled with Pressure -Offloading No -Treatment Response Procedure Tolerated Well 17. L upper arm lateral -Time 12:25 -Correct Patient Yes -Correct Side, Site, Position Yes -Correct Procedure Yes -Procedure Performed Yes -Type of Procedure Debridement -Clinical Debridement Subcutaneous -Post Debridement Size (cm) - Length 1.0 -Post Debridement Size (cm) - Width 4.0 -Post Debridement Size (cm) - Depth 0.1 -Total Square Cm 4.00 -Wound/Ulcer Outcome Not Healed -Ulcer Cleansing Rinsed/ Irrigated with Saline -Foul Odor after Cleansing No -Bioengineered Tissue No -Bleeding Controlled with Pressure -Offloading No -Treatment Response Procedure Tolerated Well 16. R dorsal foot medial -Time 12:25 -Correct Patient Yes -Correct Side, Site, Position Yes -Correct Procedure Yes -Procedure Performed Yes -Type of Procedure Debridement -Clinical Debridement Subcutaneous -Post Debridement Size (cm) - Length 0.8 -Post Debridement Size (cm) - Width 0.5 -Post Debridement Size (cm) - Depth 0.1 -Total Square Cm 0.40 -Wound/Ulcer Outcome Not Healed -Ulcer Cleansing Rinsed/ Irrigated with Saline -Foul Odor after Cleansing No -Bioengineered Tissue No -Bleeding Controlled with Pressure -Offloading No -Treatment Response Procedure Tolerated Well 15. R elbow -Time 12:21 -Correct Patient Yes -Correct Side, Site, Position Yes -Correct Procedure Yes -Procedure Performed No -Post Debridement Size (cm) - Length 0 -Post Debridement Size (cm) - Width 0 -Post Debridement Size (cm) - Depth 0 -Total Square Cm 0 -Wound/Ulcer Outcome Healed- Epithelialized [See Physician Procedure note for Specifics] Pain Scale: 0-10 Numeric [Pain] -Is Patient Pain Free? Yes Musculoskeletal: No Muscle Wasting Neurological: Cranial nerves II-XII grossly intact Psych/Mental Status: Normal Affect Debridement Note Post-Debridement Measurements/Treatment WC - Nurse 2 - General Ulcer CM Notes Start: 06/05/18 11:48 Freq: Status: Active Protocol: Activity Type Activity Date Activity User E-Sign Co-Sign Detail Recorded Client Recorded Date Recorded By Document 06/05/18 11:48 MW [id number] 06/05/18 11:54 MW Document 06/12/18 12:36 MW [id number] 06/12/18 12:49 MW Document 06/19/18 12:20 MW [id number] 06/19/18 12:36 MW 06/05/18 06/12/18 06/19/18 11:48 12:36 12:20 Wound Center Nurse 2 18. R medial superior knee -Time 12:25 -Correct Patient Yes -Correct Side, Site, Position Yes -Correct Procedure Yes -Procedure Performed Yes -Type of Procedure Debridement -Clinical Debridement Subcutaneous -Post Debridement Size (cm) - Length 3.0 -Post Debridement Size (cm) - Width 4.0 -Post Debridement Size (cm) - Depth 0.1 -Total Square Cm 12.00 -Wound/Ulcer Outcome Not Healed -Ulcer Cleansing Rinsed/ Irrigated with Saline -Foul Odor after Cleansing No -Bioengineered Tissue No -Bleeding Controlled with Pressure -Offloading No -Treatment Response Procedure Tolerated Well 17. L upper arm lateral -Time 12:43 12:25 -Correct Patient Yes Yes -Correct Side, Site, Position Yes Yes -Correct Procedure Yes Yes -Procedure Performed Yes Yes -Type of Procedure Debridement Debridement -Clinical Debridement Subcutaneous Subcutaneous -Post Debridement Size (cm) - Length 6.0 1.0 -Post Debridement Size (cm) - Width 1.2 4.0 -Post Debridement Size (cm) - Depth 0.1 0.1 -Total Square Cm 7.20 4.00 -Wound/Ulcer Outcome Not Healed Not Healed -Ulcer Cleansing Rinsed/ Rinsed/ Irrigated with Irrigated with Saline Saline -Foul Odor after Cleansing No No -Bioengineered Tissue No No -Bleeding Controlled with Pressure Pressure -Offloading No No -Treatment Response Procedure Procedure Tolerated Well Tolerated Well 16. R dorsal foot medial -Time 11:49 12:43 12:25 -Correct Patient Yes Yes Yes -Correct Side, Site, Position Yes Yes Yes -Correct Procedure Yes Yes Yes -Procedure Performed Yes Yes Yes -Type of Procedure Debridement Debridement Debridement -Clinical Debridement Subcutaneous Subcutaneous Subcutaneous -Post Debridement Size (cm) - Length 1.0 0.8 0.8 -Post Debridement Size (cm) - Width 0.6 0.5 0.5 -Post Debridement Size (cm) - Depth 0.4 0.1 0.1 -Total Square Cm 0.60 0.40 0.40 -Wound/Ulcer Outcome Not Healed Not Healed Not Healed -Ulcer Cleansing Rinsed/ Rinsed/ Rinsed/ Irrigated with Irrigated with Irrigated with Saline Saline Saline -Foul Odor after Cleansing No No No -Bioengineered Tissue No No No -Bleeding Controlled with Pressure Pressure Pressure -Offloading No No No -Treatment Response Procedure Procedure Procedure Tolerated Well Tolerated Well Tolerated Well 15. R elbow -Time : 12:37 12:21 -Correct Patient Yes Yes Yes -Correct Side, Site, Position Yes Yes Yes -Correct Procedure Yes Yes Yes -Procedure Performed Yes Yes No -Type of Procedure Debridement -Clinical Debridement Subcutaneous -Post Debridement Size (cm) - Length 3.3 0.5 0 -Post Debridement Size (cm) - Width 1.0 1.0 0 -Post Debridement Size (cm) - Depth 0.1 0.1 0 -Total Square Cm 3.30 0.50 0 -Wound/Ulcer Outcome Not Healed Not Healed Healed- Epithelialized -Ulcer Cleansing Rinsed/ Rinsed/ Irrigated with Irrigated with Saline Saline -Foul Odor after Cleansing No No -Bioengineered Tissue No No -Bleeding Controlled with Pressure Pressure -Offloading No No -Treatment Response Procedure Procedure Tolerated Well Tolerated Well Pain Scale: 0-10 Numeric Is Patient Pain Free? Yes Yes Yes Wound debrided: Left arm ( elbow ) Wound Grade/Stage: Stage II Type of Debridement: Excisional debridement Anesthesia Used: 4% Lidocaine Solution Depth: Down to and including healthy tissue, in the subcutaneous layer Percentage of wound debrided: 100 Instrument Used: 3mm curette Tissue Removed: Slough and devitalized tissue Severity: Fat Layer Exposed Amount of bleeding with debridement: Mild Bleeding Controlled with: Pressure Patient tolerated procedure well - Additional Wound Wound debrided: Right Foot Wound Grade/Stage: Stage II Type of Debridement: Excisional debridement Anesthesia Used: 4% Lidocaine Solution Depth: Down to and including healthy tissue, in the subcutaneous layer Percentage of wound debrided: 100 Instrument Used: 3mm curette Tissue Removed: Slouh and devitalized tissue Severity: Fat Layer Exposed Amount of bleeding with debridement: Mild Bleeding Controlled with: Pressure Patient tolerated procedure: Patient tolerated procedure well - Additional Wound Wound debrided: Right Knee Wound Grade/Stage: Stage III Type of Debridement: Excisional debridement Anesthesia Used: 4% Lidocaine Solution Depth: Down to and including healthy tissue, in the subcutaneous layer Percentage of wound debrided: 100 Instrument Used: 3mm curette Tissue Removed: Slough and devitalized tissue Severity: Fat Layer Exposed Amount of bleeding with debridement: Mild Bleeding Controlled with: Pressure Patient tolerated procedure: Patient tolerated procedure well Assessment/Plan Active Problems (Last Updated 04/10/18 @ 19:24 by Nicanor Hoyt DO) Venous insufficiency of both lower extremities (Acute) Wound of right foot (Acute) Traumatic,Penetrating with fat layer exposed. Open wound of right elbow (Acute) Traumatic. Laceration Open wound of left elbow (Acute) Traumatic, laceration. Open wound of right knee (Acute) Traumatic,penetratiung with fat layer exposed. Bilateral lower extremity edema (Chronic) Assessment: Same as above. Plan: Debridement done as documented above. Procedure was well-tolerated. Continue Promogran with Adaptic over top to all ulcers. Compliance with dressing instructions very strongly recommended. Bilateral 3M wraps for edema management. Advised to elevate lower extremities when seated and in bed. Optimal blood sugar control. Increased protein intake also recommended. All her questions were answered and she was advised to call with any further questions or concerns. Follow-up in 1 week. This note was generated with [employer] dictation software. It may contain incorrect words, spelling, and punctuation that were not noted in checking the note before signing.
[2018-06-26 11:45] VITALS: BP 166/82; PULSE 57; RESP 18; TEMP 36.8; BMI 40.4
--- NOTE | 2018-06-26 12:46 | PCM.WC.PN ---
(1) Open wound of right elbow Status: Acute Current Visit: Yes Code(s): S51.001A - Unspecified open wound of right elbow, initial encounter Comment: Traumatic. Laceration (2) Venous insufficiency of both lower extremities Status: Acute Current Visit: Yes Code(s): I87.2 - Venous insufficiency (chronic) (peripheral) (3) Wound of right foot Status: Acute Current Visit: Yes Code(s): S91.301A - Unspecified open wound, right foot, initial encounter Comment: Traumatic,Penetrating with fat layer exposed. (4) Bilateral lower extremity edema Status: Chronic Current Visit: Yes Code(s): R60.0 - Localized edema (5) Open wound of left elbow Status: Acute Current Visit: Yes Code(s): S51.002A - Unspecified open wound of left elbow, initial encounter Comment: Traumatic, laceration. (6) Open wound of right knee Status: Acute Current Visit: Yes Code(s): S81.001A - Unspecified open wound, right knee, initial encounter Comment: Traumatic,penetratiung with fat layer exposed. Type of Wound Chief Complaint: New left elbow wound. Bilateral lower extremity edema. Right foot wound and right elbow wound. History of Wound: Ms. Ya is a 73-year-old who presents with a new left elbow and right knee wound after recent fall in her apartment. States that she tripped over her walker. Was seen in the emergency room status post fall and had sutures to her right knee and Steri-Strips to her left elbow. Right elbow wound had been previously improving but opened up again after fall. She had glue applied in the emergency room. She feels well otherwise denies chills, fever or feeling of unwell. Progress of Wound: Right elbow and left upper extremities healed. Right knee with further break down. Concern for right foot cellulitis. - Physical Exam Vital Signs Temp Pulse Resp BP 98.2 F 57 L 18 166/82 H 06/26/18 11:45 06/26/18 11:45 06/26/18 11:45 06/26/18 11:45 General: Alert, Oriented x3, Cooperative, No apparent distress HEENT: Atraumatic, Normocephalic Oral: Moist Mucosa Neck: Supple Lungs: Normal air movement Abdomen: Soft, Obese Extremities: No cyanosis, Edema Skin: Ulcer/ Wound Wound Measurements and Assessment WC - Nurse 1 - General Ulcer Measurement Start: 06/05/18 11:48 Freq: Status: Active Protocol: Activity Type Activity Date Activity User E-Sign Co-Sign Detail Recorded Client Recorded Date Recorded By Document 06/26/18 11:45 DV [id number] 06/26/18 12:04 DV 06/26/18 11:45 Wound Center Nurse 1 [Ulcer Assessment] 18. R medial superior knee -Combined with other wound No -Current Size (cm) - Length 2.0 -Current Size (cm) - Width 4.2 -Current Size (cm) - Depth 0.2 -Total Square Cm 8.40 -Photo Taken No 17. L upper arm lateral -Combined with other wound No -Current Size (cm) - Length 0 -Current Size (cm) - Width 0 -Current Size (cm) - Depth 0 -Total Square Cm 0 -Date of Last Picture (Recall this 06/26/18 field) -Photo Taken Yes -Epithelialization Large 67-100% -Tunneling No -Undermining/Tunneling No -Circular Undermining No -Exudate Amt None Present -Wound Margin Flat & Intact -Granulation Amt None Present (0 %) -Granulation Quality N/A -Slough/Fibrin No -Necrosis Amt None Present (0 %) -Structure Exposed N/A -Texture (Char-wound Skin Appearance) No Abnormality Assessed -Moisture (Char-wound Skin Appearance No Abnormality ) Assessed -Color (Char-wound Skin Appearance) No Abnormality Assessed -Temperature (Char-wound Skin No Abnormality Appearance) (Pt Warm) -Foul Odor after Cleansing No 16. R dorsal foot medial -Combined with other wound No -Current Size (cm) - Length 0.6 -Current Size (cm) - Width 0.8 -Current Size (cm) - Depth 0.1 -Total Square Cm 0.48 WC - Nurse 2 - General Ulcer CM Notes Start: 06/05/18 11:48 Freq: Status: Active Protocol: Activity Type Activity Date Activity User E-Sign Co-Sign Detail Recorded Client Recorded Date Recorded By Document 06/26/18 12:28 MW [id number] 06/26/18 12:39 MW 06/26/18 12:28 Wound Center Nurse 2 [Procedure/Treatment] 18. R medial superior knee -Time 12:28 -Correct Patient Yes -Correct Side, Site, Position Yes -Correct Procedure Yes -Procedure Performed Yes -Type of Procedure Debridement -Clinical Debridement Subcutaneous -Post Debridement Size (cm) - Length 2.0 -Post Debridement Size (cm) - Width 4.0 -Post Debridement Size (cm) - Depth 2.0 -Total Square Cm 8.00 -Wound/Ulcer Outcome Not Healed -Ulcer Cleansing Rinsed/ Irrigated with Saline -Foul Odor after Cleansing No -Bioengineered Tissue No -Bleeding Controlled with Pressure -Offloading No -Treatment Response Procedure Tolerated Well 17. L upper arm lateral -Time 12:28 -Correct Patient Yes -Correct Side, Site, Position Yes -Correct Procedure Yes -Procedure Performed No -Post Debridement Size (cm) - Length 0 -Post Debridement Size (cm) - Width 0 -Post Debridement Size (cm) - Depth 0 -Total Square Cm 0 -Wound/Ulcer Outcome Healed- Epithelialized 16. R dorsal foot medial -Time 12:29 -Correct Patient Yes -Correct Side, Site, Position Yes -Correct Procedure Yes -Procedure Performed Yes -Type of Procedure Debridement -Clinical Debridement Subcutaneous -Post Debridement Size (cm) - Length 0.6 -Post Debridement Size (cm) - Width 0.5 -Post Debridement Size (cm) - Depth 0.1 -Total Square Cm 0.30 -Wound/Ulcer Outcome Not Healed -Ulcer Cleansing Rinsed/ Irrigated with Saline -Foul Odor after Cleansing No -Bioengineered Tissue No -Bleeding Controlled with Pressure -Offloading No -Treatment Response Procedure Tolerated Well [See Physician Procedure note for Specifics] Pain Scale: 0-10 Numeric [Pain] -Is Patient Pain Free? Yes Musculoskeletal: No Muscle Wasting Neurological: Cranial nerves II-XII grossly intact Psych/Mental Status: Normal Affect Debridement Note Post-Debridement Measurements/Treatment WC - Nurse 2 - General Ulcer CM Notes Start: 06/05/18 11:48 Freq: Status: Active Protocol: Activity Type Activity Date Activity User E-Sign Co-Sign Detail Recorded Client Recorded Date Recorded By Document 06/05/18 11:48 MW [id number] 06/05/18 11:54 MW Document 06/12/18 12:36 MW [id number] 06/12/18 12:49 MW Document 06/19/18 12:20 MW [id number] 06/19/18 12:36 MW Document 06/26/18 12:28 MW [id number] 06/26/18 12:39 06/05/18 06/12/18 06/19/18 11:48 12:36 12:20 Wound Center Nurse 2 18. R medial superior knee -Time 12:25 -Correct Patient Yes -Correct Side, Site, Position Yes -Correct Procedure Yes -Procedure Performed Yes -Type of Procedure Debridement -Clinical Debridement Subcutaneous -Post Debridement Size (cm) - Length 3.0 -Post Debridement Size (cm) - Width 4.0 -Post Debridement Size (cm) - Depth 0.1 -Total Square Cm 12.00 -Wound/Ulcer Outcome Not Healed -Ulcer Cleansing Rinsed/ Irrigated with Saline -Foul Odor after Cleansing No -Bioengineered Tissue No -Bleeding Controlled with Pressure -Offloading No -Treatment Response Procedure Tolerated Well 17. L upper arm lateral -Time 12:43 12:25 -Correct Patient Yes Yes -Correct Side, Site, Position Yes Yes -Correct Procedure Yes Yes -Procedure Performed Yes Yes -Type of Procedure Debridement Debridement -Clinical Debridement Subcutaneous Subcutaneous -Post Debridement Size (cm) - Length 6.0 1.0 -Post Debridement Size (cm) - Width 1.2 4.0 -Post Debridement Size (cm) - Depth 0.1 0.1 -Total Square Cm 7.20 4.00 -Wound/Ulcer Outcome Not Healed Not Healed -Ulcer Cleansing Rinsed/ Rinsed/ Irrigated with Irrigated with Saline Saline -Foul Odor after Cleansing No No -Bioengineered Tissue No No -Bleeding Controlled with Pressure Pressure -Offloading No No -Treatment Response Procedure Procedure Tolerated Well Tolerated Well 16. R dorsal foot medial -Time 11:49 12:43 12:25 -Correct Patient Yes Yes Yes -Correct Side, Site, Position Yes Yes Yes -Correct Procedure Yes Yes Yes -Procedure Performed Yes Yes Yes -Type of Procedure Debridement Debridement Debridement -Clinical Debridement Subcutaneous Subcutaneous Subcutaneous -Post Debridement Size (cm) - Length 1.0 0.8 0.8 -Post Debridement Size (cm) - Width 0.6 0.5 0.5 -Post Debridement Size (cm) - Depth 0.4 0.1 0.1 -Total Square Cm 0.60 0.40 0.40 -Wound/Ulcer Outcome Not Healed Not Healed Not Healed -Ulcer Cleansing Rinsed/ Rinsed/ Rinsed/ Irrigated with Irrigated with Irrigated with Saline Saline Saline -Foul Odor after Cleansing No No No -Bioengineered Tissue No No No -Bleeding Controlled with Pressure Pressure Pressure -Offloading No No No -Treatment Response Procedure Procedure Procedure Tolerated Well Tolerated Well Tolerated Well 15. R elbow -Time 11:49 12:37 12:21 -Correct Patient Yes Yes Yes -Correct Side, Site, Position Yes Yes Yes -Correct Procedure Yes Yes Yes -Procedure Performed Yes Yes No -Type of Procedure Debridement -Clinical Debridement Subcutaneous -Post Debridement Size (cm) - Length 3.3 0.5 0 -Post Debridement Size (cm) - Width 1.0 1.0 0 -Post Debridement Size (cm) - Depth 0.1 0.1 0 -Total Square Cm 3.30 0.50 0 -Wound/Ulcer Outcome Not Healed Not Healed Healed- Epithelialized -Ulcer Cleansing Rinsed/ Rinsed/ Irrigated with Irrigated with Saline Saline -Foul Odor after Cleansing No No -Bioengineered Tissue No No -Bleeding Controlled with Pressure Pressure -Offloading No No -Treatment Response Procedure Procedure Tolerated Well Tolerated Well Pain Scale: 0-10 Numeric Is Patient Pain Free? Yes Yes Yes 06/26/18 12:28 Wound Center Nurse 2 18. R medial superior knee -Time 12:28 -Correct Patient Yes -Correct Side, Site, Position Yes -Correct Procedure Yes -Procedure Performed Yes -Type of Procedure Debridement -Clinical Debridement Subcutaneous -Post Debridement Size (cm) - Length 2.0 -Post Debridement Size (cm) - Width 4.0 -Post Debridement Size (cm) - Depth 2.0 -Total Square Cm 8.00 -Wound/Ulcer Outcome Not Healed -Ulcer Cleansing Rinsed/ Irrigated with Saline -Foul Odor after Cleansing No -Bioengineered Tissue No -Bleeding Controlled with Pressure -Offloading No -Treatment Response Procedure Tolerated Well 17. L upper arm lateral -Time 12:28 -Correct Patient Yes -Correct Side, Site, Position Yes -Correct Procedure Yes -Procedure Performed No -Type of Procedure -Clinical Debridement -Post Debridement Size (cm) - Length 0 -Post Debridement Size (cm) - Width 0 -Post Debridement Size (cm) - Depth 0 -Total Square Cm 0 -Wound/Ulcer Outcome Healed- Epithelialized -Ulcer Cleansing -Foul Odor after Cleansing -Bioengineered Tissue -Bleeding Controlled with -Offloading -Treatment Response 16. R dorsal foot medial -Time 12:29 -Correct Patient Yes -Correct Side, Site, Position Yes -Correct Procedure Yes -Procedure Performed Yes -Type of Procedure Debridement -Clinical Debridement Subcutaneous -Post Debridement Size (cm) - Length 0.6 -Post Debridement Size (cm) - Width 0.5 -Post Debridement Size (cm) - Depth 0.1 -Total Square Cm 0.30 -Wound/Ulcer Outcome Not Healed -Ulcer Cleansing Rinsed/ Irrigated with Saline -Foul Odor after Cleansing No -Bioengineered Tissue No -Bleeding Controlled with Pressure -Offloading No -Treatment Response Procedure Tolerated Well 15. R elbow -Time -Correct Patient -Correct Side, Site, Position -Correct Procedure -Procedure Performed -Type of Procedure -Clinical Debridement -Post Debridement Size (cm) - Length -Post Debridement Size (cm) - Width -Post Debridement Size (cm) - Depth -Total Square Cm -Wound/Ulcer Outcome -Ulcer Cleansing -Foul Odor after Cleansing -Bioengineered Tissue -Bleeding Controlled with -Offloading -Treatment Response Pain Scale: 0-10 Numeric Is Patient Pain Free? Yes Wound debrided: Right dorsal foot Wound Grade/Stage: Stage II Type of Debridement: Excisional debridement Anesthesia Used: 4% Lidocaine Solution Depth: Down to and including healthy tissue, in the subcutaneous layer Percentage of wound debrided: 100 Instrument Used: 3mm curette Tissue Removed: Slough and devitalized tissue Amount of bleeding with debridement: Mild Bleeding Controlled with: Pressure Patient tolerated procedure well - Additional Wound Wound debrided: Right knee Wound Grade/Stage: Stage III Type of Debridement: Excisional debridement Anesthesia Used: 4% Lidocaine Solution Depth: Down to and including healthy tissue, in the subcutaneous layer Percentage of wound debrided: 100 Instrument Used: 3mm curette Tissue Removed: Slough and devitalized tissue Severity: Fat Layer Exposed Amount of bleeding with debridement: Mild Bleeding Controlled with: Pressure Patient tolerated procedure: Patient tolerated procedure well Assessment/Plan Active Problems (Last Updated 04/10/18 @ 19:24 by Nicanor Hoyt DO) Venous insufficiency of both lower extremities (Acute) Wound of right foot (Acute) Traumatic,Penetrating with fat layer exposed. Open wound of right elbow (Acute) Traumatic. Laceration Open wound of left elbow (Acute) Traumatic, laceration. Open wound of right knee (Acute) Traumatic,penetratiung with fat layer exposed. Bilateral lower extremity edema (Chronic) Assessment: Left foot cellulitis. Others as above. Plan: Worsening right eugene ( Thigh ) Break down. All sutures have been removed however now significnatly deep and with more slough. Debridement done as documented above. Procedure was well-tolerated. Continue Promogran with Adaptic over top to all ulcers. I however believe she needs a SNAP vac due to significnat depth of right eugene/lower thigh wound breakdown. Compliance with dressing instructions very strongly recommended. Bilateral 3M wraps for edema management. Follow up on sunday for nurse visit. Advised to elevate lower extremities when seated and in bed. Optimal blood sugar control. Increased protein intake also recommended. All her questions were answered and she was advised to call with any further questions or concerns. Follow-up in 1 week. This note was generated with [email or web address] dictation software. It may contain incorrect words, spelling, and punctuation that were not noted in checking the note before signing.
--- NOTE | 2018-06-26 16:15 | WC ---
Called patient insurance [employer] for Pre Authorization of a disposable snap wound vac per Dr. Wayne order. Snap CPT code 58829 and DX code S81.001A provided to administrative appeals tribunal member. Stated patient insurance is in [facility] and no pre authorization is needed for a snap vac. Call reference number [id number]. Snap Wound vac therapy will be initiated at next appt on 06/28/18 per orders.
[2018-06-28 14:27] VITALS: BP 172/65; PULSE 56; RESP 16; TEMP 36.5; BMI 40.4
[2018-07-03 12:08] VITALS: BP 185/75; PULSE 59; RESP 18; TEMP 36.1; BMI 40.4
--- NOTE | 2018-07-03 12:10 | WC ---
Pt states she removed 3M on sunday she states the 3M was too tight. pt wearing tubigrip since removing 3M
--- NOTE | 2018-07-03 13:40 | PN.PCM_ITS ---
(1) Open wound of right elbow Status: Acute Current Visit: Yes Code(s): S51.001A - Unspecified open wound of right elbow, initial encounter Comment: Traumatic. Laceration (2) Venous insufficiency of both lower extremities Status: Acute Current Visit: Yes Code(s): I87.2 - Venous insufficiency (chronic) (peripheral) (3) Wound of right foot Status: Acute Current Visit: Yes Code(s): S91.301A - Unspecified open wound, right foot, initial encounter Comment: Traumatic,Penetrating with fat layer exposed. (4) Bilateral lower extremity edema Status: Chronic Current Visit: Yes Code(s): R60.0 - Localized edema (5) Open wound of left elbow Status: Acute Current Visit: Yes Code(s): S51.002A - Unspecified open wound of left elbow, initial encounter Comment: Traumatic, laceration. (6) Open wound of right knee Status: Acute Current Visit: Yes Code(s): S81.001A - Unspecified open wound, right knee, initial encounter Comment: Traumatic,penetratiung with fat layer exposed. Type of Wound Chief Complaint: New left elbow wound. Bilateral lower extremity edema. Right foot wound and right elbow wound. History of Wound: Ms. Ya is a 73-year-old who presents with a new left elbow and right knee wound after recent fall in her apartment. States that she tripped over her walker. Was seen in the emergency room status post fall and had sutures to her right knee and Steri-Strips to her left elbow. Right elbow wound had been previously improving but opened up again after fall. She had glue applied in the emergency room. She feels well otherwise denies chills, fever or feeling of unwell. Progress of Wound: No new concerns at this time. Now prefers snap to her right thigh wound. - Physical Exam Vital Signs Temp Pulse Resp BP 97 F L 59 L 18 185/75 H 07/03/18 12:08 07/03/18 12:08 07/03/18 12:08 07/03/18 12:08 General: Alert, Oriented x3, Cooperative, No apparent distress HEENT: Atraumatic, Normocephalic Oral: Moist Mucosa Neck: Supple Lungs: Normal air movement Abdomen: Non Tender, Obese Extremities: No cyanosis, Edema Skin: Ulcer/ Wound Wound Measurements and Assessment WC - Nurse 1 - General Ulcer Measurement Start: 06/05/18 11:48 Freq: Status: Active Protocol: Activity Type Activity Date Activity User E-Sign Co-Sign Detail Recorded Client Recorded Date Recorded By Document 07/03/18 12:08 RB [id number] 07/03/18 12:24 MARLENI 07/03/18 12:08 Wound Center Nurse 1 [Ulcer Assessment] 18. R medial superior knee -Combined with other wound No -Current Size (cm) - Length 1.5 -Current Size (cm) - Width 3.8 -Current Size (cm) - Depth 0.1 -Total Square Cm 5.70 -Tunneling No -Undermining/Tunneling No -Circular Undermining No -Exudate Amt Medium -Exudate Type Serosanguineous -Wound Margin Distinct, Outline Attached -Granulation Amt Medium (34-66%) -Granulation Quality [place] -Slough/Fibrin Yes -Necrosis Amt Small (1-33%) -Necrotic Tissue Type Adherent Slough -Structure Exposed N/A -Texture (Char-wound Skin Appearance) Assessed -Color (Char-wound Skin Appearance) Assessed Erythema -Temperature (Char-wound Skin No Abnormality Appearance) (Pt Warm) -Tenderness on Palpation (Char-wound No Skin Appearance) -Ulcer Cleansing Wound Cleanser -Foul Odor after Cleansing No -Anesthetic Used 4% Lidocaine Solution 16. R dorsal foot medial -Combined with other wound No -Current Size (cm) - Length 0.6 -Current Size (cm) - Width 0.5 -Current Size (cm) - Depth 0.1 -Total Square Cm 0.30 -Tunneling No -Undermining/Tunneling No -Circular Undermining No -Exudate Amt Small -Exudate Type Serosanguineous -Wound Margin Distinct, Outline Attached -Granulation Amt Medium (34-66%) -Granulation Quality [place] -Slough/Fibrin Yes -Necrosis Amt Medium (34-66%) -Necrotic Tissue Type Adherent Slough -Structure Exposed N/A -Texture (Char-wound Skin Appearance) Assessed -Moisture (Char-wound Skin Appearance Dry/Scaly ) -Color (Char-wound Skin Appearance) Assessed -Temperature (Char-wound Skin No Abnormality Appearance) (Pt Warm) -Tenderness on Palpation (Char-wound No Skin Appearance) -Ulcer Cleansing Wound Cleanser -Foul Odor after Cleansing No -Anesthetic Used 4% Lidocaine Solution [Edema Assessment] -Lower Limb Edema Present Yes -Right Calf (cm) 43 -Right Ankle (cm) 27.5 -Left Calf (cm) 41.2 -Left Ankle (cm) 26 07/03/18 12:10 Wound Center by Kailyn Celeste Pt states she removed 3M on sunday she states the 3M was too tight. pt wearing tubigrip since removing 3M Initialized on 07/03/18 12:10 - END OF NOTE WC - Nurse 2 - General Ulcer CM Notes Start: 06/05/18 11:48 Freq: Status: Active Protocol: Activity Type Activity Date Activity User E-Sign Co-Sign Detail Recorded Client Recorded Date Recorded By Document 07/03/18 12:58 MW [id number] 07/03/18 13:07 MW 07/03/18 12:58 Wound Center Nurse 2 [Procedure/Treatment] 18. R medial superior knee -Time 12:58 -Correct Patient Yes -Correct Side, Site, Position Yes -Correct Procedure Yes -Procedure Performed Yes -Type of Procedure Debridement -Clinical Debridement Subcutaneous -Post Debridement Size (cm) - Length 1.5 -Post Debridement Size (cm) - Width 3.5 -Post Debridement Size (cm) - Depth 2.2 -Total Square Cm 5.25 -Wound/Ulcer Outcome Not Healed -Ulcer Cleansing Rinsed/ Irrigated with Saline -Foul Odor after Cleansing No -Bioengineered Tissue No -Bleeding Controlled with Pressure -Offloading No -Treatment Response Procedure Tolerated Well 16. R dorsal foot medial -Time 12:58 -Correct Patient Yes -Correct Side, Site, Position Yes -Correct Procedure Yes -Procedure Performed Yes -Type of Procedure Debridement -Clinical Debridement Subcutaneous -Post Debridement Size (cm) - Length 0.1 -Post Debridement Size (cm) - Width 0.1 -Post Debridement Size (cm) - Depth 0.1 -Total Square Cm 0.01 -Wound/Ulcer Outcome Not Healed -Ulcer Cleansing Rinsed/ Irrigated with Saline -Foul Odor after Cleansing No -Bioengineered Tissue No -Bleeding Controlled with Pressure -Offloading No -Treatment Response Procedure Tolerated Well [See Physician Procedure note for Specifics] Pain Scale: 0-10 Numeric [Pain] -Is Patient Pain Free? Yes Musculoskeletal: No Muscle Wasting Neurological: Cranial nerves II-XII grossly intact Psych/Mental Status: Normal Affect Debridement Note Post-Debridement Measurements/Treatment WC - Nurse 2 - General Ulcer CM Notes Start: 06/05/18 11:48 Freq: Status: Active Protocol: Activity Type Activity Date Activity User E-Sign Co-Sign Detail Recorded Client Recorded Date Recorded By Document 06/05/18 11:48 MW [id number] 06/05/18 11:54 MW Document 06/12/18 12:36 MW [id number] 06/12/18 12:49 MW Document 06/19/18 12:20 MW [id number] 06/19/18 12:36 MW Document 06/26/18 12:28 MW [id number] 06/26/18 12:39 MW Document 07/03/18 12:58 MW [id number] 07/03/18 13:07 MW 06/05/18 06/12/18 06/19/18 11:48 12:36 12:20 Wound Center Nurse 2 18. R medial superior knee -Time 12:25 -Correct Patient Yes -Correct Side, Site, Position Yes -Correct Procedure Yes -Procedure Performed Yes -Type of Procedure Debridement -Clinical Debridement Subcutaneous -Post Debridement Size (cm) - Length 3.0 -Post Debridement Size (cm) - Width 4.0 -Post Debridement Size (cm) - Depth 0.1 -Total Square Cm 12.00 -Wound/Ulcer Outcome Not Healed -Ulcer Cleansing Rinsed/ Irrigated with Saline -Foul Odor after Cleansing No -Bioengineered Tissue No -Bleeding Controlled with Pressure -Offloading No -Treatment Response Procedure Tolerated Well 17. L upper arm lateral -Time 12:43 12:25 -Correct Patient Yes Yes -Correct Side, Site, Position Yes Yes -Correct Procedure Yes Yes -Procedure Performed Yes Yes -Type of Procedure Debridement Debridement -Clinical Debridement Subcutaneous Subcutaneous -Post Debridement Size (cm) - Length 6.0 1.0 -Post Debridement Size (cm) - Width 1.2 4.0 -Post Debridement Size (cm) - Depth 0.1 0.1 -Total Square Cm 7.20 4.00 -Wound/Ulcer Outcome Not Healed Not Healed -Ulcer Cleansing Rinsed/ Rinsed/ Irrigated with Irrigated with Saline Saline -Foul Odor after Cleansing No No -Bioengineered Tissue No No -Bleeding Controlled with Pressure Pressure -Offloading No No -Treatment Response Procedure Procedure Tolerated Well Tolerated Well 16. R dorsal foot medial -Time 11:49 12:43 12:25 -Correct Patient Yes Yes Yes -Correct Side, Site, Position Yes Yes Yes -Correct Procedure Yes Yes Yes -Procedure Performed Yes Yes Yes -Type of Procedure Debridement Debridement Debridement -Clinical Debridement Subcutaneous Subcutaneous Subcutaneous -Post Debridement Size (cm) - Length 1.0 0.8 0.8 -Post Debridement Size (cm) - Width 0.6 0.5 0.5 -Post Debridement Size (cm) - Depth 0.4 0.1 0.1 -Total Square Cm 0.60 0.40 0.40 -Wound/Ulcer Outcome Not Healed Not Healed Not Healed -Ulcer Cleansing Rinsed/ Rinsed/ Rinsed/ Irrigated with Irrigated with Irrigated with Saline Saline Saline -Foul Odor after Cleansing No No No -Bioengineered Tissue No No No -Bleeding Controlled with Pressure Pressure Pressure -Offloading No No No -Treatment Response Procedure Procedure Procedure Tolerated Well Tolerated Well Tolerated Well 15. R elbow -Time 12:37 12:21 -Correct Patient Yes Yes Yes -Correct Side, Site, Position Yes Yes Yes -Correct Procedure Yes Yes Yes -Procedure Performed Yes Yes No -Type of Procedure Debridement -Clinical Debridement Subcutaneous -Post Debridement Size (cm) - Length 3.3 0.5 0 -Post Debridement Size (cm) - Width 1.0 1.0 0 -Post Debridement Size (cm) - Depth 0.1 0.1 0 -Total Square Cm 3.30 0.50 0 -Wound/Ulcer Outcome Not Healed Not Healed Healed- Epithelialized -Ulcer Cleansing Rinsed/ Rinsed/ Irrigated with Irrigated with Saline Saline -Foul Odor after Cleansing No No -Bioengineered Tissue No No -Bleeding Controlled with Pressure Pressure -Offloading No No -Treatment Response Procedure Procedure Tolerated Well Tolerated Well Pain Scale: 0-10 Numeric Is Patient Pain Free? Yes Yes Yes 06/26/18 07/03/18 12:28 12:58 Wound Center Nurse 2 18. R medial superior knee -Time 12:28 12:58 -Correct Patient Yes Yes -Correct Side, Site, Position Yes Yes -Correct Procedure Yes Yes -Procedure Performed Yes Yes -Type of Procedure Debridement Debridement -Clinical Debridement Subcutaneous Subcutaneous -Post Debridement Size (cm) - Length 2.0 1.5 -Post Debridement Size (cm) - Width 4.0 3.5 -Post Debridement Size (cm) - Depth 2.0 2.2 -Total Square Cm 8.00 5.25 -Wound/Ulcer Outcome Not Healed Not Healed -Ulcer Cleansing Rinsed/ Rinsed/ Irrigated with Irrigated with Saline Saline -Foul Odor after Cleansing No No -Bioengineered Tissue No No -Bleeding Controlled with Pressure Pressure -Offloading No No -Treatment Response Procedure Procedure Tolerated Well Tolerated Well 17. L upper arm lateral -Time 12:28 -Correct Patient Yes -Correct Side, Site, Position Yes -Correct Procedure Yes -Procedure Performed No -Type of Procedure -Clinical Debridement -Post Debridement Size (cm) - Length 0 -Post Debridement Size (cm) - Width 0 -Post Debridement Size (cm) - Depth 0 -Total Square Cm 0 -Wound/Ulcer Outcome Healed- Epithelialized -Ulcer Cleansing -Foul Odor after Cleansing -Bioengineered Tissue -Bleeding Controlled with -Offloading -Treatment Response 16. R dorsal foot medial -Time 12:29 12:58 -Correct Patient Yes Yes -Correct Side, Site, Position Yes Yes -Correct Procedure Yes Yes -Procedure Performed Yes Yes -Type of Procedure Debridement Debridement -Clinical Debridement Subcutaneous Subcutaneous -Post Debridement Size (cm) - Length 0.6 0.1 -Post Debridement Size (cm) - Width 0.5 0.1 -Post Debridement Size (cm) - Depth 0.1 0.1 -Total Square Cm 0.30 0.01 -Wound/Ulcer Outcome Not Healed Not Healed -Ulcer Cleansing Rinsed/ Rinsed/ Irrigated with Irrigated with Saline Saline -Foul Odor after Cleansing No No -Bioengineered Tissue No No -Bleeding Controlled with Pressure Pressure -Offloading No No -Treatment Response Procedure Procedure Tolerated Well Tolerated Well 15. R elbow -Time -Correct Patient -Correct Side, Site, Position -Correct Procedure -Procedure Performed -Type of Procedure -Clinical Debridement -Post Debridement Size (cm) - Length -Post Debridement Size (cm) - Width -Post Debridement Size (cm) - Depth -Total Square Cm -Wound/Ulcer Outcome -Ulcer Cleansing -Foul Odor after Cleansing -Bioengineered Tissue -Bleeding Controlled with -Offloading -Treatment Response Pain Scale: 0-10 Numeric Is Patient Pain Free? Yes Yes Wound debrided: Right knee/lower thigh Wound Grade/Stage: Stage III Type of Debridement: Excisional debridement Anesthesia Used: 4% Lidocaine Solution Depth: Down to and including healthy tissue, in the subcutaneous layer Percentage of wound debrided: 100 Instrument Used: 3mm curette Tissue Removed: Slough and devitalized tissue Severity: Fat Layer Exposed Amount of bleeding with debridement: Mild Bleeding Controlled with: Pressure Patient tolerated procedure well - Additional Wound Wound debrided: Right dorsal foot Wound Grade/Stage: Stage II Type of Debridement: Excisional debridement Anesthesia Used: 4% Lidocaine Solution Depth: Down to and including healthy tissue Percentage of wound debrided: 100 Instrument Used: 3mm curette Tissue Removed: Devitalized tissue Severity: Limited To Skin Breakdown Amount of bleeding with debridement: Mild Bleeding Controlled with: Pressure Patient tolerated procedure: Patient tolerated procedure well Assessment/Plan Active Problems (Last Updated 04/10/18 @ 19:24 by Nicanor Hoyt DO) Venous insufficiency of both lower extremities (Acute) Wound of right foot (Acute) Traumatic,Penetrating with fat layer exposed. Open wound of right elbow (Acute) Traumatic. Laceration Open wound of left elbow (Acute) Traumatic, laceration. Open wound of right knee (Acute) Traumatic,penetratiung with fat layer exposed. Bilateral lower extremity edema (Chronic) Assessment: Left foot cellulitis. Others as above. Plan: Debridement done as documented above. Procedure was well-tolerated. Continue Promogran with Adaptic over top to right dorsal foot ulcer. Snap VAC applied to right knee/lower thigh wound. Follow-up on Sunday for nurse visit/change. Compliance with dressing instructions very strongly recommended. Bilateral 3M wraps for edema management. Advised to elevate lower extremities when seated and in bed. Optimal blood sugar control. Increased protein intake also recommended. All her questions were answered and she was advised to call with any further questions or concerns. Follow-up in 1 week. This note was generated with [employer] software. It may contain incorrect words, spelling, and punctuation that were not noted in checking the note before signing.
== END 2018-07-05 23:59 ==
LOC: WC 11:45
PROVIDERS: Family Provider Family Medicine Geriatric Medicine; PCP Family Medicine Geriatric Medicine; Referring Provider Podiatrist; Visit Provider Internal Medicine
DX: S51.011A Laceration without foreign body of right elbow, initial encounter (principal); W19.XXXA Unspecified fall, initial encounter; I87.2 Venous insufficiency (chronic) (peripheral); E11.51 Type 2 diabetes mellitus with diabetic peripheral angiopathy without gangrene; R60.0 Localized edema; S81.031A Puncture wound without foreign body, right knee, initial encounter; W18.39XA Other fall on same level, initial encounter; D50.9 Iron deficiency anemia, unspecified; I25.10 Atherosclerotic heart disease of native coronary artery without angina pectoris; Z95.1 Presence of aortocoronary bypass graft; I48.0 Paroxysmal atrial fibrillation; E78.5 Hyperlipidemia, unspecified; I10 Essential (primary) hypertension; Z79.899 Other long term (current) drug therapy; Z79.01 Long term (current) use of anticoagulants; Z79.84 Long term (current) use of oral hypoglycemic drugs; S51.012A Laceration without foreign body of left elbow, initial encounter; S91.331A Puncture wound without foreign body, right foot, initial encounter; L03.116 Cellulitis of left lower limb
CPT/HCPCS: 11042; 29580; 29581; 97607; 99213; G0463

== ENCOUNTER → 2018-07-26 | Outpatient (CLI) | payer MEDICARE, SELFPAY ==
[2018-07-24 08:17] VITALS: BMI 40.4
== END | disposition home or self-care (01) ==
PROVIDERS: Family Provider Family Medicine Geriatric Medicine; PCP Family Medicine Geriatric Medicine; Referring Provider Urology; Visit Provider Urology
DX: N39.0 Urinary tract infection, site not specified (principal)
CPT/HCPCS: 87086; 87088; 87186

== ENCOUNTER → 2018-07-29 | Outpatient (CLI) | payer MEDICARE, SELFPAY ==
[2018-07-24 08:17] VITALS: BMI 40.4
--- NOTE | 2018-07-29 17:31 | RAD_ITS ---
STUDY: X-RAY CHEST REASON FOR EXAM: Female, 73 years old. Cough TECHNIQUE: Frontal and lateral views of the chest COMPARISON: 04/12/2018. FINDINGS: The lungs are clear. There are no pleural effusions. There is no pneumothorax. The heart is normal in size. Again noted are sternotomy wires. There are degenerative changes noted in the spine. RAD/Chest PA and Lateral IMPRESSION: No acute thoracic pathology. Electronically Signed: Andreas Polanco, at 18:30 EDT Tel , Service support ,
[2018-07-29 18:09] LABS: Absolute Lymphocyte Count 2.28 X10^3/ul (0.83-4.51); Absolute Neutrophil Count 8.7 X10^3/uL (2.0-7.7); Basophil# 0.01 X10^3/uL; Basophil% 0.1 % (0-1); Eosinophil# 0.15 X10^3/uL; Eosinophils% 1.3 % (0-5); Hematocrit 42.4 % (37-47); Hemoglobin 12.7 g/dl (12.0-15.0); Lymphocyte # 2.28 X10^3/ul (4.0); Lymphocyte % 19.4 % (19-41); Mean Corpuscular Hgb 26.6 pg (27.0-32.0); Mean Corpuscular Volume 88.7 fL (81-99); Mean Platelet Vol. 10.1 fl (6.2-12.0); Monocyte# 0.53 X10^3/uL; Monocyte% 4.5 % (0-10); Neutrophil # 8.74 X10^3/uL (2.7-7.7); Neutrophil % 74.5 % (47-70); Platelet Count 187 K/mm3 (150-450); RBC Distribution Width CV 18.3 % (11.6-14.6); RBC Distribution Width SD 59.2 fl (35.1-43.9); Red Blood Count 4.78 M/mm3 (4.2-5.4); White Blood Count 11.7 K/mm3 (4.4-11.0)
[2018-07-29 18:22] LABS: POSITIVE COUNT NO; POSITIVE DIFFERENTIAL NO; POSITIVE MORPHOLOGY NO
[2018-07-29 18:32] LABS: Anion Gap 7 (5-15); BUN 17 mg/dL (7-18); BUN/Creat Ratio 15.6 RATIO (10-20); Calcium,Total 9.3 mg/dL (8.5-10.1); Chloride 108 mmol/L (98-107); Creatinine, Serum 1.09 mg/dL (0.55-1.02); EST Glomerular Filtration Rate 52 mL/min (>60); Est Glom Filt Rate - Afr Amer 63 mL/min (>60); Glucose 106 mg/dL (74-106); Potassium 3.6 mmol/L (3.5-5.1); Sodium Level 143 mmol/L (136-145)
== END | disposition home or self-care (01) ==
PROVIDERS: Family Provider Family Medicine Geriatric Medicine; PCP Family Medicine Geriatric Medicine; Referring Provider Family Medicine Geriatric Medicine; Visit Provider Family Medicine Geriatric Medicine
DX: J40 Bronchitis, not specified as acute or chronic (principal); R68.83 Chills (without fever)
CPT/HCPCS: 36415; 71046; 80048; 85025; 87633

== ENCOUNTER 2018-07-31 11:15 | Outpatient (RCR) | payer MEDICARE, SELFPAY ==
[2018-07-06 00:43] VITALS: BP 185/75; PULSE 59; RESP 18; TEMP 36.1
[2018-07-08 13:04] VITALS: BP 181/83; PULSE 57; RESP 18; TEMP 36; BMI 40.4
[2018-07-16 16:25] VITALS: BP 190/87; PULSE 55; RESP 18; TEMP 36.2; BMI 40.4
[2018-07-24 08:17] VITALS: TEMP 36.7; BMI 40.4
--- NOTE | 2018-07-24 09:17 | PCM.WC.PN ---
(1) Ulcer of right lower extremity with fat layer exposed Status: Chronic Current Visit: Yes Code(s): L97.912 - Non-pressure chronic ulcer of unspecified part of right lower leg with fat layer exposed (2) Ulcer of right foot with fat layer exposed Status: Chronic Current Visit: Yes Code(s): L97.512 - Non-pressure chronic ulcer of other part of right foot with fat layer exposed (3) Wound of left lower extremity Status: Acute Current Visit: Yes Code(s): S81.802A - Unspecified open wound, left lower leg, initial encounter (4) Venous insufficiency of both lower extremities Status: Chronic Current Visit: Yes Code(s): I87.2 - Venous insufficiency (chronic) (peripheral) (5) Bilateral lower extremity edema Status: Chronic Current Visit: Yes Code(s): R60.0 - Localized edema Type of Wound Date of Service: 07/24/18 Chief Complaint: New left cabrera wound. Bilateral lower extremity edema. Right knee ulcer History of Wound: Ms. Ya is a 73-year-old who presents with a new left elbow and right knee wound after recent fall in her apartment. States that she tripped over her walker. Was seen in the emergency room status post fall and had sutures to her right knee and Steri-Strips to her left elbow. Right elbow wound had been previously improving but opened up again after fall. She had glue applied in the emergency room. She feels well otherwise denies chills, fever or feeling of unwell. Elbow wounds are healed. Right anterior knee ulcer had SNAP vac that came off a couple days ago. She has a new wound on right anterior lower leg. Progress of Wound: Right anterior foot ulcer is healed today. The patient would prefer not to have the SNAP vac to the Right knee ucler. She has a new wound to her left anterior lower leg where she bumped it on something and it opened up. - Physical Exam Vital Signs Temp Pulse Resp BP 98.0 F 55 L 18 190/87 H 07/24/18 08:17 07/16/18 16:25 07/16/18 16:25 07/16/18 16:25 General: Alert, Oriented x3, Cooperative HEENT: Atraumatic Oral: Moist Mucosa Lungs: Normal air movement Cardiovascular: Regular rate Extremities: Capillary Refill Less than 3 Seconds, Diminished Peripheral Pulses, Edema - +4 pitting edema bilateral lower extremities Skin: Ulcer/ Wound - New wound to left anterior lower leg. Ulcer to right knee. Right dorsal foot ulcer is healed. Wound Measurements and Assessment WC - Nurse 1 - General Ulcer Measurement Start: 07/08/18 13:04 Freq: Status: Active Protocol: Activity Type Activity Date Activity User E-Sign Co-Sign Detail Recorded Client Recorded Date Recorded By Document 07/24/18 08:17 [id number] 07/24/18 08:33 07/24/18 08:17 Wound Center Nurse 1 [Ulcer Assessment] #19 Left medial cabrera -Combined with other wound No -Current Size (cm) - Length 0.8 -Current Size (cm) - Width 0.9 -Current Size (cm) - Depth 0.2 -Total Square Cm 0.72 -Date of Last Picture (Recall this 07/24/18 field) -Photo Taken Yes -Epithelialization None Present -Tunneling No -Undermining/Tunneling No -Circular Undermining No -Exudate Amt Medium -Exudate Type Yellow/Green -Wound Margin Distinct, Outline Attached -Granulation Amt None Present (0 %) -Granulation Quality N/A -Slough/Fibrin No -Necrosis Amt Medium (34-66%) -Necrotic Tissue Type Adherent Slough -Structure Exposed None/Limited to Skin Breakdown -Texture (Char-wound Skin Appearance) Localized Edema -Moisture (Char-wound Skin Appearance No Abnormality, ) Assessed -Color (Char-wound Skin Appearance) No Abnormality, Assessed -Temperature (Char-wound Skin No Abnormality Appearance) (Pt Warm) -Tenderness on Palpation (Char-wound No Skin Appearance) -Ulcer Cleansing Rinsed/ Irrigated with Saline -Foul Odor after Cleansing No -Anesthetic Used 4% Lidocaine Solution 18. R medial superior knee -Combined with other wound No -Current Size (cm) - Length 0.5 -Current Size (cm) - Width 2.4 -Current Size (cm) - Depth 0.3 -Total Square Cm 1.20 -Photo Taken No -Epithelialization None Present -Tunneling No -Undermining/Tunneling No -Circular Undermining No -Exudate Amt Medium -Exudate Type Yellow/Green -Wound Margin Distinct, Outline Attached -Granulation Amt None Present (0 %) -Granulation Quality N/A -Slough/Fibrin Yes -Necrosis Amt Medium (34-66%) -Necrotic Tissue Type Adherent Slough -Structure Exposed None/Limited to Skin Breakdown -Texture (Char-wound Skin Appearance) Localized Edema -Moisture (Char-wound Skin Appearance No Abnormality, ) Assessed -Color (Char-wound Skin Appearance) No Abnormality, Assessed -Temperature (Char-wound Skin No Abnormality Appearance) (Pt Warm) -Tenderness on Palpation (Char-wound No Skin Appearance) -Ulcer Cleansing Rinsed/ Irrigated with Saline -Foul Odor after Cleansing No -Anesthetic Used 4% Lidocaine Solution 16. R dorsal foot medial -Combined with other wound No -Current Size (cm) - Length 0.1 -Current Size (cm) - Width 0.1 -Current Size (cm) - Depth 0.1 -Total Square Cm 0.01 -Photo Taken No -Epithelialization Large 67-100% -Tunneling No -Undermining/Tunneling No -Circular Undermining No -Temperature (Char-wound Skin No Abnormality Appearance) (Pt Warm) -Tenderness on Palpation (Char-wound No Skin Appearance) -Ulcer Cleansing Rinsed/ Irrigated with Saline -Anesthetic Used 4% Lidocaine Solution [Edema Assessment] -Lower Limb Edema Present NA WC - Nurse 2 - General Ulcer CM Notes Start: 07/08/18 13:04 Freq: Status: Active Protocol: Activity Type Activity Date Activity User E-Sign Co-Sign Detail Recorded Client Recorded Date Recorded By Document 07/24/18 08:54 SERG [id number] 07/24/18 09:09 SERG 07/24/18 08:54 Wound Center Nurse 2 [Procedure/Treatment] #19 Left medial cabrera -Time 08:54 -Correct Patient Yes -Correct Side, Site, Position Yes -Correct Procedure Yes -Procedure Performed Yes -Type of Procedure Debridement -Clinical Debridement Subcutaneous -Post Debridement Size (cm) - Length 1.7 -Post Debridement Size (cm) - Width 0.8 -Post Debridement Size (cm) - Depth 0.3 -Total Square Cm 1.36 -Wound/Ulcer Outcome Not Healed -Ulcer Cleansing Rinsed/ Irrigated with Saline -Foul Odor after Cleansing No -Bioengineered Tissue No 18. R medial superior knee -Time 08:54 -Correct Patient Yes -Correct Side, Site, Position Yes -Correct Procedure Yes -Procedure Performed Yes -Type of Procedure Debridement -Clinical Debridement Subcutaneous -Post Debridement Size (cm) - Length 0.4 -Post Debridement Size (cm) - Width 2.3 -Post Debridement Size (cm) - Depth 0.5 -Total Square Cm 0.92 -Wound/Ulcer Outcome Not Healed -Ulcer Cleansing Rinsed/ Irrigated with Saline -Foul Odor after Cleansing No -Bioengineered Tissue No -Bleeding Controlled with Pressure -Offloading No -Treatment Response Procedure Tolerated Well 16. R dorsal foot medial -Time 08:54 -Correct Patient No -Correct Side, Site, Position No -Correct Procedure No -Procedure Performed No -Post Debridement Size (cm) - Length 0 -Post Debridement Size (cm) - Width 0 -Post Debridement Size (cm) - Depth 0 -Total Square Cm 0 -Wound/Ulcer Outcome Healed- Epithelialized [See Physician Procedure note for Specifics] Pain Scale: 0-10 Numeric [Pain] -Is Patient Pain Free? Yes Musculoskeletal: No Tenderness to Palpation of Joints or Extremities Neurological: Neuro grossly intact Psych/Mental Status: Normal Affect, Appropriate Debridement Note Post-Debridement Measurements/Treatment WC - Nurse 2 - General Ulcer CM Notes Start: 07/08/18 13:04 Freq: Status: Active Protocol: Activity Type Activity Date Activity User E-Sign Co-Sign Detail Recorded Client Recorded Date Recorded By Document 07/24/18 08:54 SERG [id number] 07/24/18 09:09 SERG 07/24/18 08:54 Wound Center Nurse 2 #19 Left medial cabrera -Time 08:54 -Correct Patient Yes -Correct Side, Site, Position Yes -Correct Procedure Yes -Procedure Performed Yes -Type of Procedure Debridement -Clinical Debridement Subcutaneous -Post Debridement Size (cm) - Length 1.7 -Post Debridement Size (cm) - Width 0.8 -Post Debridement Size (cm) - Depth 0.3 -Total Square Cm 1.36 -Wound/Ulcer Outcome Not Healed -Ulcer Cleansing Rinsed/ Irrigated with Saline -Foul Odor after Cleansing No -Bioengineered Tissue No 18. R medial superior knee -Time 08:54 -Correct Patient Yes -Correct Side, Site, Position Yes -Correct Procedure Yes -Procedure Performed Yes -Type of Procedure Debridement -Clinical Debridement Subcutaneous -Post Debridement Size (cm) - Length 0.4 -Post Debridement Size (cm) - Width 2.3 -Post Debridement Size (cm) - Depth 0.5 -Total Square Cm 0.92 -Wound/Ulcer Outcome Not Healed -Ulcer Cleansing Rinsed/ Irrigated with Saline -Foul Odor after Cleansing No -Bioengineered Tissue No -Bleeding Controlled with Pressure -Offloading No -Treatment Response Procedure Tolerated Well 16. R dorsal foot medial -Time 08:54 -Correct Patient No -Correct Side, Site, Position No -Correct Procedure No -Procedure Performed No -Post Debridement Size (cm) - Length 0 -Post Debridement Size (cm) - Width 0 -Post Debridement Size (cm) - Depth 0 -Total Square Cm 0 -Wound/Ulcer Outcome Healed- Epithelialized Pain Scale: 0-10 Numeric Is Patient Pain Free? Yes Wound debrided: right anterior knee Laterality: Right Type of Debridement: Excisional debridement Anesthesia Used: 4% Lidocaine Solution Depth: Down to and including healthy tissue, in the subcutaneous layer Percentage of wound debrided: 100 Instrument Used: 3mm curette Tissue Removed: Subcutaneous tissue and slough Severity: Fat Layer Exposed Amount of bleeding with debridement: Mild Bleeding Controlled with: Pressure Patient tolerated procedure well - Additional Wound Wound debrided: Left anterior lower leg wound Laterality: Left Type of Debridement: Excisional debridement Anesthesia Used: 4% Lidocaine Solution Depth: Down to and including healthy tissue Percentage of wound debrided: 100 Instrument Used: 3mm curette Tissue Removed: Subcutaneous tissue and slough Severity: Limited To Skin Breakdown Amount of bleeding with debridement: Mild Bleeding Controlled with: Pressure Patient tolerated procedure: Patient tolerated procedure well Assessment/Plan Active Problems (Last Updated 04/10/18 @ 19:24 by Nicanor Hoyt DO) Venous insufficiency of both lower extremities (Chronic) Wound of left lower extremity (Acute) Bilateral lower extremity edema (Chronic) Ulcer of right lower extremity with fat layer exposed (Chronic) Ulcer of right foot with fat layer exposed (Chronic) Ulcer of left lower extremity with fat layer exposed (Acute) Assessment: Venous insufficiency of both lower extremities. Wound of left lower extremity. Bilateral lower extremity edema. Ulcer of right lower extremity with fat layer exposed. Ulcer of right foot with fat layer exposed-healed Plan: Courtesy visit today. Debridement done as documented above. Procedure was well-tolerated. Right dorsal foot ulcer is healed today. Snap VAC stopped per patient request to right knee/lower thigh wound. New left lower leg wound. Wound care will be Promogram to all open areas. Bilateral 3M wraps for edema management. Advised to elevate lower extremities when seated and in bed. She would probably benefit from seeing OT for lymphadema management of her lower extremities once her wounds are healed. Optimal blood sugar control. Increased protein intake also recommended. All her questions were answered and she was advised to call with any further questions or concerns. Follow-up in [address] Wayne. This note was generated with [employer]ise[employer] dictation software. It may contain incorrect words, spelling, and punctuation that were not noted in checking the note before signing. Code Visit [id number]: [id number] Dari subq tissue 20 sq cm/<
[2018-07-31 12:02] VITALS: BP 193/99; PULSE 60; RESP 20; TEMP 36.4; BMI 40.4
--- NOTE | 2018-07-31 12:55 | PN.PCM_ITS ---
(1) Open wound of right knee Status: Chronic Current Visit: Yes Code(s): S81.001A - Unspecified open wound, right knee, initial encounter Comment: Traumatic,penetratiung with fat layer exposed. (2) Venous insufficiency of both lower extremities Status: Chronic Current Visit: Yes Code(s): I87.2 - Venous insufficiency (chronic) (peripheral) (3) Bilateral lower extremity edema Status: Chronic Current Visit: Yes Code(s): R60.0 - Localized edema (4) Wound of left lower extremity Status: Acute Current Visit: Yes Qualifiers: Encounter type: subsequent encounter Qualified Code(s): S81.802D - Unspecified open wound, left lower leg, subsequent encounter Code(s): S81.802A - Unspecified open wound, left lower leg, initial encounter Comment: Traumatic, penetrating with fat layer exposed. Type of Wound Date of Service: 07/31/18 Chief Complaint: New left cabrera wound. Bilateral lower extremity edema. Right knee ulcer History of Wound: Ms. Ya is a 73-year-old who presents with a new left elbow and right knee wound after recent fall in her apartment. States that she tripped over her walker. Was seen in the emergency room status post fall and had sutures to her right knee and Steri-Strips to her left elbow. Right elbow wound had been previously improving but opened up again after fall. She had glue applied in the emergency room. She feels well otherwise denies chills, fever or feeling of unwell. Elbow wounds are healed. Right anterior knee ulcer had SNAP vac that came off a couple days ago. She has a new wound on right anterior lower leg. Progress of Wound: No new concerns at this time. Snap Vac discontinued last week. - Physical Exam Vital Signs Temp Pulse Resp BP 97.5 F L 60 20 H 193/99 H 07/31/18 12:02 07/31/18 12:02 07/31/18 12:02 07/31/18 12:02 General: Alert, Oriented x3, Cooperative, No apparent distress HEENT: Atraumatic, Normocephalic Oral: Moist Mucosa Neck: Supple Lungs: Wheezes Abdomen: Non Tender, Obese Extremities: No cyanosis, Edema Skin: Ulcer/ Wound Wound Measurements and Assessment WC - Nurse 1 - General Ulcer Measurement Start: 07/08/18 13:04 Freq: Status: Active Protocol: Activity Type Activity Date Activity User E-Sign Co-Sign Detail Recorded Client Recorded Date Recorded By Document 07/31/18 12:02 [facility] [id number] 07/31/18 12:20 [facility] 07/31/18 12:02 Wound Center Nurse 1 [Ulcer Assessment] #19 Left medial cabrera -Combined with other wound No -Current Size (cm) - Length 1.3 -Current Size (cm) - Width 0.7 -Current Size (cm) - Depth 0.1 -Total Square Cm 0.91 -Photo Taken No -Epithelialization None Present -Tunneling No -Undermining/Tunneling No -Circular Undermining No -Exudate Amt Small -Exudate Type Serous -Wound Margin Flat & Intact -Granulation Amt None Present (0 %) -Slough/Fibrin Yes -Necrosis Amt Large (67-100%) -Necrotic Tissue Type Adherent Slough -Texture (Char-wound Skin Appearance) Assessed, Scarring -Moisture (Char-wound Skin Appearance Assessed ) -Color (Char-wound Skin Appearance) Assessed, Erythema -Temperature (Char-wound Skin No Abnormality Appearance) (Pt Warm) -Tenderness on Palpation (Char-wound No Skin Appearance) -Ulcer Cleansing Rinsed/ Irrigated with Saline -Foul Odor after Cleansing No -Anesthetic Used 5% Lidocaine Gel 18. R medial superior knee -Combined with other wound No -Current Size (cm) - Length 0.1 -Current Size (cm) - Width 1.6 -Current Size (cm) - Depth 0.2 -Total Square Cm 0.16 -Photo Taken No -Epithelialization None Present -Tunneling No -Undermining/Tunneling No -Circular Undermining No -Exudate Amt None Present -Wound Margin Distinct, Outline Attached -Granulation Amt None Present (0 %) -Slough/Fibrin Yes -Necrosis Amt Large (67-100%) -Necrotic Tissue Type Adherent Slough -Texture (Char-wound Skin Appearance) Assessed, Scarring -Moisture (Char-wound Skin Appearance Assessed,Dry/ ) Scaly -Color (Char-wound Skin Appearance) Assessed -Temperature (Char-wound Skin No Abnormality Appearance) (Pt Warm) -Tenderness on Palpation (Char-wound No Skin Appearance) -Ulcer Cleansing Rinsed/ Irrigated with Saline -Foul Odor after Cleansing No -Anesthetic Used 5% Lidocaine Gel [Edema Assessment] -Lower Limb Edema Present Yes -Right Calf (cm) 43.5 -Right Ankle (cm) 29.6 -Left Calf (cm) 42.4 -Left Ankle (cm) 28.4 HAZEL - Nurse 2 - General Ulcer CM Notes Start: 07/08/18 13:04 Freq: Status: Active Protocol: Activity Type Activity Date Activity User E-Sign Co-Sign Detail Recorded Client Recorded Date Recorded By Document 07/31/18 12:44 MW [id number] 07/31/18 12:50 MW 07/31/18 12:44 Wound Center Nurse 2 [Procedure/Treatment] #19 Left medial cabrera -Time 12:44 -Correct Patient Yes -Correct Side, Site, Position Yes -Correct Procedure Yes -Procedure Performed Yes -Type of Procedure Debridement -Clinical Debridement Subcutaneous -Post Debridement Size (cm) - Length 2.0 -Post Debridement Size (cm) - Width 1.0 -Post Debridement Size (cm) - Depth 0.1 -Total Square Cm 2.00 -Wound/Ulcer Outcome Not Healed -Ulcer Cleansing Rinsed/ Irrigated with Saline -Foul Odor after Cleansing No -Bioengineered Tissue No -Bleeding Controlled with Pressure -Offloading No -Treatment Response Procedure Tolerated Well 18. R medial superior knee -Time 12:44 -Correct Patient Yes -Correct Side, Site, Position Yes -Correct Procedure Yes -Procedure Performed Yes -Type of Procedure Debridement -Clinical Debridement Subcutaneous -Post Debridement Size (cm) - Length 0.3 -Post Debridement Size (cm) - Width 1.8 -Post Debridement Size (cm) - Depth 0.3 -Total Square Cm 0.54 -Wound/Ulcer Outcome Not Healed -Ulcer Cleansing Rinsed/ Irrigated with Saline -Foul Odor after Cleansing No -Bioengineered Tissue No -Bleeding Controlled with Pressure -Offloading No -Treatment Response Procedure Tolerated Well [See Physician Procedure note for Specifics] Pain Scale: 0-10 Numeric [Pain] -Is Patient Pain Free? Yes Musculoskeletal: No Muscle Wasting Neurological: Cranial nerves II-XII grossly intact Psych/Mental Status: Normal Affect Debridement Note Post-Debridement Measurements/Treatment HAZEL - Nurse 2 - General Ulcer CM Notes Start: 07/08/18 13:04 Freq: Status: Active Protocol: Activity Type Activity Date Activity User E-Sign Co-Sign Detail Recorded Client Recorded Date Recorded By Document 07/24/18 08:54 JF [id number] 07/24/18 09:09 Document 07/31/18 12:44 MW [id number] 07/31/18 12:50 MW 07/24/18 07/31/18 08:54 12:44 Wound Center Nurse 2 #19 Left medial cabrera -Time 08:54 12:44 -Correct Patient Yes Yes -Correct Side, Site, Position Yes Yes -Correct Procedure Yes Yes -Procedure Performed Yes Yes -Type of Procedure Debridement Debridement -Clinical Debridement Subcutaneous Subcutaneous -Post Debridement Size (cm) - Length 1.7 2.0 -Post Debridement Size (cm) - Width 0.8 1.0 -Post Debridement Size (cm) - Depth 0.3 0.1 -Total Square Cm 1.36 2.00 -Wound/Ulcer Outcome Not Healed Not Healed -Ulcer Cleansing Rinsed/ Rinsed/ Irrigated with Irrigated with Saline Saline -Foul Odor after Cleansing No No -Bioengineered Tissue No No -Bleeding Controlled with Pressure -Offloading No -Treatment Response Procedure Tolerated Well 18. R medial superior knee -Time 08:54 12:44 -Correct Patient Yes Yes -Correct Side, Site, Position Yes Yes -Correct Procedure Yes Yes -Procedure Performed Yes Yes -Type of Procedure Debridement Debridement -Clinical Debridement Subcutaneous Subcutaneous -Post Debridement Size (cm) - Length 0.4 0.3 -Post Debridement Size (cm) - Width 2.3 1.8 -Post Debridement Size (cm) - Depth 0.5 0.3 -Total Square Cm 0.92 0.54 -Wound/Ulcer Outcome Not Healed Not Healed -Ulcer Cleansing Rinsed/ Rinsed/ Irrigated with Irrigated with Saline Saline -Foul Odor after Cleansing No No -Bioengineered Tissue No No -Bleeding Controlled with Pressure Pressure -Offloading No No -Treatment Response Procedure Procedure Tolerated Well Tolerated Well 16. R dorsal foot medial -Time 08:54 -Correct Patient No -Correct Side, Site, Position No -Correct Procedure No -Procedure Performed No -Post Debridement Size (cm) - Length 0 -Post Debridement Size (cm) - Width 0 -Post Debridement Size (cm) - Depth 0 -Total Square Cm 0 -Wound/Ulcer Outcome Healed- Epithelialized Pain Scale: 0-10 Numeric Is Patient Pain Free? Yes Yes Wound debrided: Right Knee ( Superior ) Wound Grade/Stage: Stage III Type of Debridement: Excisional debridement Anesthesia Used: 4% Lidocaine Solution Depth: Down to and including healthy tissue, in the subcutaneous layer Percentage of wound debrided: 100 Instrument Used: 3mm curette Tissue Removed: Slough and devitalized tissue Severity: Fat Layer Exposed Amount of bleeding with debridement: Mild Bleeding Controlled with: Pressure Patient tolerated procedure well - Additional Wound Wound debrided: Left lower extremity Wound Grade/Stage: Stage II Type of Debridement: Excisional debridement Anesthesia Used: 4% Lidocaine Solution Depth: Down to and including healthy tissue, in the subcutaneous layer Percentage of wound debrided: 100 Instrument Used: 3mm curette Tissue Removed: Slough and devitalized tissue Severity: Fat Layer Exposed Amount of bleeding with debridement: Mild Bleeding Controlled with: Pressure Patient tolerated procedure: Patient tolerated procedure well Assessment/Plan Active Problems (Last Updated 04/10/18 @ 19:24 by Nicanor Hoyt DO) Venous insufficiency of both lower extremities (Chronic) Open wound of right knee (Chronic) Traumatic,penetratiung with fat layer exposed. Wound of left lower extremity (Acute) Traumatic, penetrating with fat layer exposed. Bilateral lower extremity edema (Chronic) Ulcer of right lower extremity with fat layer exposed (Chronic) Ulcer of right foot with fat layer exposed (Chronic) Ulcer of left lower extremity with fat layer exposed (Acute) Assessment: Venous insufficiency of both lower extremities. Wound of left lower extremity. Bilateral lower extremity edema. Ulcer of right lower extremity w ith fat layer exposed. Ulcer of right foot with fat layer exposed-healed Plan: Debridement done as documented above. Procedure was well-tolerated. Right superior knee/ lower thigh wound is improving. Stable left lower extremity. Continue Pomogran with adpatic over top to all wounds. Continue Bilateral 3M wraps for edema management. Advised to elevate lower extremities when seated and in bed. She would probably benefit from seeing OT for lymphadema management of her lower extremities once her wounds are healed. Optimal blood sugar control. Increased protein intake also recommended. All her questions were answered and she was advised to call with any further questions or concerns. Follow-up in 1 week. This note was generated with [employer] software. It may contain incorrect words, spelling, and punctuation that were not noted in checking the note before signing.
== END 2018-08-04 23:59 ==
LOC: WC 11:15
PROVIDERS: Family Provider Family Medicine Geriatric Medicine; PCP Family Medicine Geriatric Medicine; Referring Provider Podiatrist; Visit Provider Internal Medicine
DX: S81.031A Puncture wound without foreign body, right knee, initial encounter (principal); W01.0XXA Fall on same level from slipping, tripping and stumbling without subsequent striking against object, initial encounter; I87.2 Venous insufficiency (chronic) (peripheral); R60.0 Localized edema; S51.032A Puncture wound without foreign body of left elbow, initial encounter
CPT/HCPCS: 11042; 29580; 29581; 97607; 97608; 99212; 99213; G0463

== ENCOUNTER 2018-08-19 14:14 | Inpatient (IN) | payer MEDICARE, SELFPAY ==
[2018-08-19] VITALS (7 sets, daily range): BP systolic 122–174; BP diastolic 48–72; PULSE 55–60; RESP 14–17; TEMP 36.5–37.1; O2SAT 90–100; BMI 40.4; BMI 38.2; BMI 38.3; BMI 38.5
--- NOTE | 2018-08-19 15:46 | NURSING ---
DR AMBER JAIMES
[2018-08-19] MEDS: fentaNYL 100 MCG/2 ML Ampul 25 MCG IV (15:47)
--- NOTE | 2018-08-19 15:47 | ED.DCSUM_ITS ---
- ER Visit Summary Date of Service: 08/19/18 Chief Complaint: Leg infection History of Present Illness: The patient is a 73 F with a left leg infection which has been getting worse over the past 5 days. It is red, warm, swollen, and gripping. She was referred to the ED from wound care for further care. She reports a recent upper respiratory infection and was on antibiotics which she completed yesterday. She does not know which antibiotics she was taking, and she is not currently on antibiotics. She does have a history of atrial fibrillation and takes Xarelto. No fevers or other associated symptoms. Physical Examination: Afebrile and vital signs unremarkable. Patient alert and oriented. No acute distress. Sitting comfortably. Left lower extremity shows edema and redness starting at the left foot and extending just distal to the left knee. There is an abrasion to her mid cabrera, medial aspect. Neurovascular intact distally. Test Results: Laboratory studies, cultures, MRSA testing pending. Emergency Department Course and Treatment: Patient treated with IV clindamycin. I believe she will need inpatient care given her history and the severity of her infection. Hospitalist was contacted for further care. Treatment Plan: As above Disposition: Admission Impression: 1. Left lower extremity cellulitis This note was generated with [employer] dictation software. It may contain incorrect words, spelling, and punctuation that were not noted in review of the chart prior to signing ED Disposition - Plan for ED Patient: Referrals: Octaviano Franco Chi, MD [Primary Care Provider] -
--- NOTE | 2018-08-19 15:49 | NURSING ---
MED SURG KORAM CELLULITIS LEFT LEG
[2018-08-19 15:53] LABS: Anion Gap 1 (5-15); BUN 24 mg/dL (7-18); BUN/Creat Ratio 19.8 RATIO (10-20); Calcium,Total 9.1 mg/dL (8.5-10.1); Chloride 105 mmol/L (98-107); Creatinine, Serum 1.21 mg/dL (0.55-1.02); EST Glomerular Filtration Rate 46 mL/min (>60); Est Glom Filt Rate - Afr Amer 56 mL/min (>60); Glucose 115 mg/dL (74-106); Potassium 3.6 mmol/L (3.5-5.1); Sodium Level 139 mmol/L (136-145)
[2018-08-19 15:58] LABS: Absolute Lymphocyte Count 1.78 X10^3/ul (0.83-4.51); Absolute Neutrophil Count 10.2 X10^3/uL (2.0-7.7); Basophil# 0.02 X10^3/uL; Basophil% 0.2 % (0-1); Eosinophil# 0.25 X10^3/uL; Eosinophils% 1.9 % (0-5); Hematocrit 43.1 % (37-47); Lymphocyte # 1.78 X10^3/ul (4.0); Lymphocyte % 13.5 % (19-41); Mean Corp Hgb Conc 30.2 g/gl (32-36); Mean Corpuscular Hgb 26.6 pg (27.0-32.0); Mean Corpuscular Volume 88.3 fL (81-99); Mean Platelet Vol. 10.3 fl (6.2-12.0); Monocyte# 0.94 X10^3/uL; Monocyte% 7.1 % (0-10); Neutrophil # 10.18 X10^3/uL (2.7-7.7); Neutrophil % 76.9 % (47-70); Platelet Count 192 K/mm3 (150-450); RBC Distribution Width CV 19.4 % (11.6-14.6); RBC Distribution Width SD 62.8 fl (35.1-43.9); Red Blood Count 4.88 M/mm3 (4.2-5.4); White Blood Count 13.2 K/mm3 (4.4-11.0)
[2018-08-19 16:02] LABS: POSITIVE COUNT NO; POSITIVE DIFFERENTIAL NO; POSITIVE MORPHOLOGY NO
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
--- NOTE | 2018-08-19 16:08 | ED.RN ---
order for ua placed post antibiotic start. shai robledo rn [id number]
[2018-08-19 17:50] LABS: Bedside Glucose 84 mg/dL (70-110)
[2018-08-19 18:31] LABS: M R Staph aureus DNA By PCR Negative (Negative); Staph aureus DNA By PCR NEGATIVE (Negative)
[2018-08-19 18:32] LABS: Probe Check PASS
[2018-08-19] MEDS: 0.9% NaCl Peripheral Flush Adult/Peds IV (18:33)
--- NOTE | 2018-08-19 18:39 | PCM.RX.CS ---
Consult Pharmacy has been consulted to manage selected antiobiotic: Vancomycin Type of Consult: New start Suspected Infection: Skin/Soft tissue Labs: Sodium 139 mmol/L (136-145) 08/19/18 15:30 Potassium 3.6 mmol/L (3.5-5.1) 08/19/18 15:30 Chloride 105 mmol/L (98-107) 08/19/18 15:30 Carbon Dioxide 33.0 mmol/L (21.0-32.0) H 08/19/18 15:30 1 (5-15) L 08/19/18 15:30 BUN 24 mg/dL (7-18) H 08/19/18 15:30 1.21 mg/dL (0.55-1.02) H 08/19/18 15:30 Est GFR (MDRD) Af Amer 56 mL/min (>60) L 08/19/18 15:30 Est GFR (MDRD) Non-Af 46 mL/min (>60) L 08/19/18 15:30 19.8 RATIO (10-20) 08/19/18 15:30 Glucose 115 mg/dL (74-106) H 08/19/18 15:30 Weight used for dosin lb 0.108 oz Estimated Creatinine Clearance: 41 Goal Trough: 10-15 mcg/mL Pharmacy Plan for Drug Dosing: Pharmacy Service will continue to monitor and adjust dosing as required. Loading dose 15mg/kg - 1250mg given 08-19 at 18:23 Calculated dose of 1250mg q24h to maintain trough of 10-15 will start 08/20 [id number] A trough will be obtained 01/21 [id number] Follow-Up Labs: Trough Vancomycin
[2018-08-19] MEDS: Budesonide Respules 0.5 MG/2 ML AMPUL.NEB. INHALATION (18:58)
[2018-08-19] MEDS: oxyCODONE 5 MG Tablet PO (21:03)
[2018-08-19 21:11] LABS: Bedside Glucose 148 mg/dL (70-110)
[2018-08-19] MEDS: Metoprolol Tartrate 50 MG Tablet PO (21:12)
[2018-08-19] MEDS: Magnesium Oxide 400 MG Tablet PO (21:13)
[2018-08-19] MEDS: Gabapentin 300 MG Capsule PO (21:13)
[2018-08-19] MEDS: Donepezil HCl 5 MG Tablet PO (21:13)
[2018-08-20] VITALS (11 sets, daily range): BP systolic 127–159; BP diastolic 67–108; PULSE 57–76; RESP 16–18; TEMP 36.7–37.3; O2SAT 82–96
[2018-08-20 01:06] LABS: Bacteria 0 SEEN /hpf (None Seen); Mucous, Urine 0 SEEN /hpf (<or=2+)
[2018-08-20] MEDS: oxyCODONE 5 MG Tablet PO ×2 (01:10→06:46)
[2018-08-20 01:42] LABS: Red Blood Cells-Urine 5-10 SEEN /hpf (0-5); Squamous Epithelial Cells - UA 5-10 SEEN /hpf (5-10); White Blood Cells 5-10 SEEN /hpf (0-5)
[2018-08-20 02:10] LABS: Color, Urine Yellow (Yellow); Glucose, Dipstick Normal (Normal); Ketone-Dipstick Negative (Negative); Leukocyte Esterase-Dipstick Negative /ul (Negative); Nitrite-Dipstick Negative (Negative); Occult Blood-Urine 25 /ul (Negative); Protein-Dipstick 30 mg/dl (Negative); Specific Gravity, Urine 1.025 (1.002-1.030); Urine Bilirubin Dipstick Negative (Negative); Urine Clarity Sl. Cloudy (Clear); Urine Urobilinogen Normal (Normal)
[2018-08-20 06:17] LABS: Absolute Lymphocyte Count 1.41 X10^3/ul (0.83-4.51); Absolute Neutrophil Count 7.5 X10^3/uL (2.0-7.7); Basophil# 0.01 X10^3/uL; Basophil% 0.1 % (0-1); Eosinophil# 0.26 X10^3/uL; Eosinophils% 2.6 % (0-5); Hematocrit 36.7 % (37-47); Hemoglobin 11.1 g/dl (12.0-15.0); Lymphocyte # 1.41 X10^3/ul (4.0); Lymphocyte % 14.1 % (19-41); Mean Corp Hgb Conc 30.2 g/gl (32-36); Mean Corpuscular Hgb 26.9 pg (27.0-32.0); Mean Corpuscular Volume 88.9 fL (81-99); Mean Platelet Vol. 10.7 fl (6.2-12.0); Monocyte# 0.77 X10^3/uL; Monocyte% 7.7 % (0-10); Neutrophil # 7.53 X10^3/uL (2.7-7.7); Platelet Count 154 K/mm3 (150-450); RBC Distribution Width CV 19.7 % (11.6-14.6); RBC Distribution Width SD 63.1 fl (35.1-43.9); Red Blood Count 4.13 M/mm3 (4.2-5.4)
[2018-08-20 06:19] LABS: POSITIVE COUNT NO; POSITIVE DIFFERENTIAL NO; POSITIVE MORPHOLOGY NO
[2018-08-20 06:39] LABS: Anion Gap 1 (5-15); BUN 22 mg/dL (7-18); Calcium,Total 8.4 mg/dL (8.5-10.1); Chloride 109 mmol/L (98-107); Creatinine, Serum 1.05 mg/dL (0.55-1.02); EST Glomerular Filtration Rate 54 mL/min (>60); Est Glom Filt Rate - Afr Amer 66 mL/min (>60); Estimated Creatinine Clearance 33.76 ml/min; Glucose 127 mg/dL (74-106); Potassium 4.1 mmol/L (3.5-5.1); Sodium Level 142 mmol/L (136-145)
[2018-08-20 06:51] LABS: Bedside Glucose 117 mg/dL (70-110)
[2018-08-20] MEDS: Budesonide Respules 0.5 MG/2 ML AMPUL.NEB. INHALATION ×2 (06:51→18:51)
--- NOTE | 2018-08-20 08:08 | NURSING ---
wound photo: left lower leg
[2018-08-20] MEDS: Furosemide 40 MG Tablet PO (09:38)
[2018-08-20] MEDS: Iron Polysaccharide Complex 150 MG CAPSULE PO (09:38)
[2018-08-20] MEDS: Magnesium Oxide 400 MG Tablet PO ×2 (09:38→22:48)
[2018-08-20] MEDS: Metoprolol Tartrate 50 MG Tablet PO ×2 (09:39→22:49)
[2018-08-20] MEDS: Amiodarone 200 MG Tablet PO (09:39)
[2018-08-20] MEDS: DULoxetine Hcl 60 MG Capsule PO (09:39)
[2018-08-20] MEDS: Pantoprazole Sodium 40 MG Tablet PO (09:39)
[2018-08-20] MEDS: Gabapentin 300 MG Capsule PO ×2 (09:39→22:48)
[2018-08-20] MEDS: Rivaroxaban 15 MG Tablet PO (12:09)
[2018-08-20 12:16] LABS: Bedside Glucose 121 mg/dL (70-110)
--- NOTE | 2018-08-20 12:21 | CASEMGMT ---
RN CM Assessment Introduced role of RN CM to patient.? Patient is alert, oriented and able?to participate in RN CM Assessment. ?Care providers, pharmacy, and demographics verified. Presentation: Lt Leg infection, worse over the past 5 days, referred to ER from [facility] Admit Dx: Cellulitis Re-Admit: No Barriers/Issues: None. States if IV ABX is needed as plan on DC, does not feel she can be taught and not sure if family whom lives with her can be taught, states preference would be to go to Infusion Ctr for Daily IV Abx. States if HHC needed, Preference is [facility] as that is who her sister that lives with her currently has. States if SNF recommended her Preference is [facility]. PCP: Octaviano Franco Chi Specialists: Neuro for her Multiple Sclerosis- Dr Farhat Esposito, Nephro- Dr Cortes, Uro- Dr Eva Bear Preferred Pharmacy: [facility] Insurance: [employer] Rx Benefit:?Yes LNOK: Sister Monika Kelly, Son Farhat Ya Living Arrangements:?Lives with her sister Monika, Her Son Farhat and his in a home, 1 step to enter. ADL?s: Ambulates with a Rollator, Independent with ADLs Transportation: [facility], [facility] upon DC either her sister Monika or Son Farhat DME: CPAP- Noncompliant, states does not use d/t preference, states CPAP works and nothing wrong with it. Rollator, Shower Chair, Glucometer. HHC: Past [facility], and her Preference if HHC needed. SNF: Past [facility]. States [facility] is her Preference if SNF needed. Goal: Home, does not think will have any needs. See Issue above. Denies any questions/concerns or issues with DC Plan. Aware CM remains available for any emerging needs. DC PLAN: Home with possible IV Abx. KARLEY Brantley
--- NOTE | 2018-08-20 13:13 | PCM.PROGNOTE ---
Patient Problems: Active and Suspected Problems (Last Updated 04/10/18 @ 19:24 by Nicanor Hoyt DO) Cellulitis (Acute) Subjective: No fever/chills. Swelling and erythema improved LLE. Wound photos on chart. No N/V/D. Pt fatigued, otherwise improving. - Physical Exam General: Alert, Oriented x3, Cooperative HEENT: Atraumatic, PERRLA, EOMI, Normocephalic Neck: Supple, No JVD, Negative Carotid Bruits Lungs: Clear to auscultation, Normal air movement Cardiovascular: Regular rate, No murmurs Abdomen: Bowel Sounds Present, Soft, Non Tender Extremities: No edema, Capillary Refill Less than 3 Seconds Skin: No rashes, No breakdown Musculoskeletal: No Tenderness to Palpation of Joints or Extremities Neurological: Cranial nerves II-XII grossly intact Psych/Mental Status: Normal Affect, Appropriate, Alert and oriented to time, place, person, mood and affect Vital Signs Temp Pulse Resp BP Pulse Ox 99.2 F H 76 18 150/87 H 96 08/20/18 09:34 08/20/18 09:39 08/20/18 09:34 08/20/18 09:34 08/20/18 09:34 Oxygen Flow Rate (L/min) 3 Oxygen Delivery Method Nasal Cannula Weight: 197 lb 1.492 oz Body Mass Index (BMI) 38.5 Finger Stick Blood Glucose 187 Intake and Output for Last 24 Hours 08/18/18 08/19/18 08/20/18 23:59 23:59 23:59 Intake Total 250 / 250 763 / 763 Output Total 150 / 150 250 / 250 Balance 100 / 100 513 / 513 Microbiology Past 72 Hours 08/19/18 15:17 Gram Stain - Final Wound - Left Foot Wound Culture - Preliminary Gram negative james Laboratory Tests Past 24 Hrs 08/19/18 08/19/18 08/19/18 15:17 15:30 15:30 WBC 13.2 H RBC 4.88 Hgb 13.0 Hct 43.1 MCV 88.3 MCH 26.6 L MCHC 30.2 L RDW 19.4 H RDW Differential 62.8 H Plt Count 192 MPV 10.3 Immature Gran % (Auto) 0.400 Neut % (Auto) 76.9 H Lymph % (Auto) 13.5 L [place] % (Auto) 7.1 Eos % (Auto) 1.9 Baso % (Auto) 0.2 Absolute Neuts (auto) 10.2 H Absolute Lymphs (auto) 1.78 Total Counted Not Reportable Sodium 139 Potassium 3.6 Chloride 105 Carbon Dioxide 33.0 H Anion Gap 1 L BUN 24 H Creatinine 1.21 H Estim Creat Clear Calc 29.30 Est GFR (MDRD) Af Amer 56 L Est GFR (MDRD) Non-Af 46 L BUN/Creatinine Ratio 19.8 Glucose 115 H Calcium 9.1 Urine Color Urine Clarity Urine pH Ur Specific [place] Urine Protein Urine Glucose (UA) Urine Ketones Urine Occult Blood Urine Nitrite Urine Bilirubin Urine Urobilinogen Ur Leukocyte Esterase Urine RBC Urine WBC Ur Squamous Epith Cells Urine Bacteria Urine Mucus S.aureus Protein A PCR NEGATIVE MRSA (PCR) Negative 08/20/18 08/20/18 08/20/18 00:45 05:50 05:50 WBC 10.0 RBC 4.13 L Hgb 11.1 L Hct 36.7 L MCV 88.9 MCH 26.9 L MCHC 30.2 L RDW 19.7 H RDW Differential 63.1 H Plt Count 154 MPV 10.7 Immature Gran % (Auto) 0.500 Neut % (Auto) 75.0 H Lymph % (Auto) 14.1 L [place] % (Auto) 7.7 Eos % (Auto) 2.6 Baso % (Auto) 0.1 Absolute Neuts (auto) 7.5 Absolute Lymphs (auto) 1.41 Total Counted Not Reportable Sodium 142 Potassium 4.1 Chloride 109 H Carbon Dioxide 32.0 Anion Gap 1 L BUN 22 H Creatinine 1.05 H Estim Creat Clear Calc 33.76 Est GFR (MDRD) Af Amer 66 Est GFR (MDRD) Non-Af 54 L BUN/Creatinine Ratio 21.0 H Glucose 127 H Calcium 8.4 L Urine Color Yellow Urine Clarity Sl. Cloudy Urine pH 5.0 Ur Specific [place] 1.025 Urine Protein 30 H Urine Glucose (UA) Normal Urine Ketones Negative Urine Occult Blood 25 H Urine Nitrite Negative Urine Bilirubin Negative Urine Urobilinogen Normal Ur Leukocyte Esterase Negative Urine RBC 5-10 SEEN Urine WBC 5-10 SEEN Ur Squamous Epith Cells 5-10 SEEN Urine Bacteria 0 SEEN Urine Mucus 0 SEEN S.aureus Protein A PCR MRSA (PCR) POC Glucose 08/20/18 08/20/18 08/19/18 12:09 06:41 21:01 POC Glucose 121 H 117 H 148 H 08/19/18 17:26 POC Glucose 84 Medical Necessity - Tobacco Use Smoking Status: Former smoker Tobacco Use: Non-smoker Assessment/Plan All Active Problems (Last Updated 04/10/18 @ 19:24 by Nicanor Hoyt DO) Wound of right foot (Acute) Open wound of right elbow (Acute) Open wound of left elbow (Acute) Wound of left lower extremity (Acute) Cellulitis (Acute) UTI (urinary tract infection) (Acute) Metabolic encephalopathy (Acute) Ulcer of left lower extremity with fat layer exposed (Resolved) 1. Acute cellulitis LLE - Vanc/Cefepime. WBC improved. No fever. prior cultures with Pseudomonas, Staph, E coli. See prior cultures. Wound culture showing GNR. Erythema is greatly improved. 2. Acute UTI - UA unremarkable. Ruled out. Suspect bladder spasms. 3. PAfib - on xarelto - rate controlled. Amio, metoprolol. 4. DMt2 - hold metformin, SSI. 5. Recent URI 2/2 Rhinovirus - still occasional cough. No SOB. 6. Chronic Diastolic CHF - stable 7. Hx CAD prior stent / CABG - not on asa/statin/plavix/JASMINE. On BB only 8. Hx iron deficiency anemia - continue ferrex. 9. CKDIII - stable. DVT ppx: xarelto DC planning: PTOT, increasing falls recently. This patient was seen by Donn Reinoso PA-C under the supervision of Dr. Ramirez
--- NOTE | 2018-08-20 15:03 | CHAPLAIN ---
Type of Pastoral Visit _x__ Initial Visit ___ Follow-up Visit ___ On-call Visit ___ General Patient Visit ___ Spiritual Assessment ___ Family Conference ___ Bereavement ___ Rapid Response ___ Code Blue ___ Other (describe below) Pastoral Care Referral From _x__ Patient ___ Family ___ Nurse ___ Physician ___ Sap Basis ___ Laboratory Supervisor ___ Other (describe below) Sacrament/Intervention _x__ Active listening ___ Anointing ___ Latter Day ___ Bereavement ___ Communion _x__ Aminah exploration ___ _x__ Life review _x__ Prayer ___ Reconciliation ___ Sacrament of Sick _x__ Supportive presence ___ Wedding ___ Other (describe below) Pastoral Comments
[2018-08-20 17:40] LABS: Bedside Glucose 104 mg/dL (70-110)
[2018-08-20] MEDS: Donepezil HCl 5 MG Tablet PO (22:48)
[2018-08-20 23:45] LABS: Bedside Glucose 132 mg/dL (70-110)
[2018-08-21] VITALS (8 sets, daily range): BP systolic 150–177; BP diastolic 61–92; PULSE 60–71; RESP 16–20; TEMP 36.6–37.5; O2SAT 92–96
[2018-08-21] MEDS: oxyCODONE 5 MG Tablet PO ×2 (05:48→13:39)
[2018-08-21] MEDS: Budesonide Respules 0.5 MG/2 ML AMPUL.NEB. INHALATION ×2 (06:46→19:36)
[2018-08-21 06:50] LABS: Bedside Glucose 101 mg/dL (70-110)
[2018-08-21] MEDS: DULoxetine Hcl 60 MG Capsule PO (08:36)
[2018-08-21] MEDS: Amiodarone 200 MG Tablet PO (08:36)
[2018-08-21] MEDS: Magnesium Oxide 400 MG Tablet PO ×2 (08:36→21:44)
[2018-08-21] MEDS: Gabapentin 300 MG Capsule PO ×2 (08:36→21:46)
[2018-08-21] MEDS: Pantoprazole Sodium 40 MG Tablet PO (08:36)
[2018-08-21] MEDS: Metoprolol Tartrate 50 MG Tablet PO ×2 (08:36→21:45)
[2018-08-21] MEDS: Iron Polysaccharide Complex 150 MG CAPSULE PO (08:37)
[2018-08-21] MEDS: Rivaroxaban 15 MG Tablet PO (08:38)
[2018-08-21 09:07] LABS: Hemoglobin A1c 6.8 % (4.2-6.3)
[2018-08-21 11:36] LABS: Bedside Glucose 77 mg/dL (70-110)
--- NOTE | 2018-08-21 13:51 | CON.PCM_ITS ---
Problem List (1) Cellulitis Status: Acute Reason for Consult: cellulitis Consulted by: Dr. Hoyt History of Present Illness: The patient is a 73 year old F who presented with several days of L cabrera redness, soreness, clear/yellow drainage. No fever or chills. Follows with wound care. Has been falling at home. Recent abx include omnicef. Admitted here on clinda, changed to vanc/cefepime. Feeling better, leg less red and swollen. Full ROS performed and neg except as noted above. Reports hives with cipro and PCN. - Medical History Past Medical History (Chronic Problems): Chronic Problems (Last Updated 04/10/18 @ 19:24 by Nicanor Hoyt, DO) Venous insufficiency of both lower extremities (Chronic) Open wound of right knee (Chronic) Traumatic,penetratiung with fat layer exposed. CAD (coronary artery disease) (Chronic) Diabetes (Chronic) Bilateral lower extremity edema (Chronic) Diastolic CHF (Chronic) Cognitive impairment (Chronic) patient is confused at times Iron deficiency anemia (Chronic) etiology unknown Ulcer of right lower extremity with fat layer exposed (Chronic) Ulcer of right foot with fat layer exposed (Chronic) Ulcer of left lower extremity with fat layer exposed (Chronic) PVD (peripheral vascular disease) (Chronic) Controlled diabetes mellitus (Chronic) Edema, lower extremity (Chronic) Presence of stent in coronary artery (Chronic) PTCA/stent to CX; PTCA/Stent PTCA/stent to prox RCA 05/06; PTCA/LILY in mid to distal RCA 08/29/12 Atherosclerotic heart disease of [place] coronary artery without angina pectoris (Chronic) PTCA/stent to CX; PTCA/Stent PTCA/stent to prox RCA 05/06; PTCA/LILY in mid to distal RCA 08/29/12; CABG x2 ARREGUIN tp LAD and SVG to OM2 01/02/11 S/P CABG (coronary artery bypass graft) (Chronic ~01/02/11) CABG x2 ARREGUIN tp LAD and SVG to OM2 01/02/11 Paroxysmal atrial fibrillation (Chronic) Hyperlipidemia (Chronic) Hypertension (Chronic) Allergies/Adverse Reactions: Allergies codeine Allergy (Unknown, Verified 08/19/18 14:16) Hives ciprofloxacin [From Cipro] Allergy (Verified 08/19/18 14:16) Hives ciprofloxacin HCl [From Cipro] Allergy (Verified 08/19/18 14:16) Hives Latex, Natural Rubber Allergy (Verified 08/19/18 14:16) Rash Penicillins [PCN] Allergy (Verified 08/19/18 14:16) Hives adhesive tape Adverse Reaction (Verified 08/19/18 14:16) Rash Home Medications: Ambulatory Orders Medication Instructions Recorded Amiodarone HCl 200 mg PO DAILY 04/09/18 Duloxetine HCl 60 mg PO DAILY 04/09/18 Iron Polysaccharide Complex 150 mg PO DAILY 04/09/18 [Ferrex 150] Magnesium Oxide [Mag-Ox 400] 400 mg PO BID 04/09/18 Metoprolol Tartrate [Lopressor 50 mg PO BID 04/09/18 (beta man)] Pantoprazole Sodium [Protonix] 40 mg PO DAILY 04/09/18 Rivaroxaban [Xarelto] 15 mg PO DAILY 04/09/18 Budesonide Inhaler 180 mcg 1 puff INHALATION BID #1 inhaler 04/17/18 [Pulmicort Inhaler 180 mcg] Docusate Sodium 100 mg PO DAILY PRN PRN 05/22/18 Ergocalciferol (Vitamin D2) 50,000 unit PO QWEEK 05/22/18 [Vitamin D2] Metformin HCl [Metformin HCl ER] 500 mg PO DAILY 05/22/18 furosemide 40 mg tablet 40 mg PO DAILY tab 06/18/18 Cefdinir 300 mg PO BID 08/19/18 Donepezil HCl 5 mg PO DAILY 08/19/18 Gabapentin [Neurontin] 300 mg PO BID 08/19/18 Potassium Chloride [Klor-Con M20] 20 meq PO BID 08/19/18 traMADol [Ultram] 50 mg PO BID PRN PRN 08/19/18 - Social History SMOKING STATUS:: Former smoker Vital Signs Temp Pulse Resp BP Pulse Ox 99.3 F H 66 18 158/62 H 94 08/21/18 13:33 08/21/18 13:33 08/21/18 13:33 08/21/18 13:33 08/21/18 13:33 Oxygen Flow Rate (L/min) 2 Oxygen Delivery Method Room Air Weight: 89.4 kg Body Mass Index (BMI) 38.5 Finger Stick Blood Glucose 187 Microbiology Past 72 Hours 08/19/18 15:35 Blood Culture - Preliminary Blood Culture (Wb) - Anticubital Right No growth in 48 hours. 08/19/18 15:30 Blood Culture - Preliminary Blood Culture (Wb) - Left Forearm No growth in 48 hours. 08/20/18 00:45 Urine Culture - Preliminary Urine, Clean Catch Culture exhibits no growth. 08/19/18 15:17 Gram Stain - Final Wound - Left Foot Wound Culture - Preliminary GNR Poss Pseudomonas sp GPC Poss Enterococcus sp Laboratory Tests Past 24 Hrs 08/21/18 05:30 Hemoglobin A1c 6.8 H - Other Studies Radiology: [] reviewed Other Studies: [] Route of nutrition/ use of supplements: [] Nutritional Intake: [] IV Site: [] [place] Catheter: [] - Physical Exam General: Alert, Oriented x3, Cooperative, No apparent distress HEENT: Atraumatic, PERRLA, EOMI Neck: Supple, No Nodes Lungs: Clear to auscultation, Normal air movement Cardiovascular: Regular rate, Regular Rhythm, No murmurs Abdomen: Soft, Non Tender, Non-Distended Extremities: Edema - mild Skin: Ulcer/ Wound - L cabrera redness, fading, minimal warmth. Small scabbed anterior cabrera wound. IV Site: Peripheral, without redness Musculoskeletal: No Tenderness to Palpation of Joints or Extremities Neurological: Cranial nerves II-XII grossly intact - Assessment/Plan Antibiotics: [] Assessment/Plan: [] Active and Suspected Problems (Last Updated 04/10/18 @ 19:24 by Nicanor Hoyt DO) Cellulitis (Acute) L cabrera cellulitis - improving. Wound cx without purulence, small amount of poss ible enterococcus and PsA seen. On vanc/cefepime. Serous drainage at home per the patient. Will continue iv abx, await further cx data, plan will be for home with po abx. Will follow, thank you, d/w Dr. Hoyt.
--- NOTE | 2018-08-21 13:59 | PCM.PROGNOTE ---
Patient Problems: Active and Suspected Problems (Last Updated 04/10/18 @ 19:24 by Nicanor Hoyt DO) Cellulitis (Acute) Subjective: No fever/chills. LE edema, pain, erythema all improved. No cough/sob/N/V/D. - Physical Exam General: Alert, Oriented x3, Cooperative HEENT: Atraumatic, PERRLA, EOMI, Normocephalic Neck: Supple, No JVD, Negative Carotid Bruits Lungs: Clear to auscultation, Normal air movement Cardiovascular: Regular rate, No murmurs Abdomen: Bowel Sounds Present, Soft, Non Tender Extremities: No edema, Capillary Refill Less than 3 Seconds Skin: - - erythema and swelling improved. Musculoskeletal: No Tenderness to Palpation of Joints or Extremities Neurological: Cranial nerves II-XII grossly intact Psych/Mental Status: Normal Affect, Appropriate, Alert and oriented to time, place, person, mood and affect Vital Signs Temp Pulse Resp BP Pulse Ox 99.3 F H 66 18 158/62 H 94 08/21/18 13:33 08/21/18 13:33 08/21/18 13:33 08/21/18 13:33 08/21/18 13:33 Oxygen Flow Rate (L/min) 2 Oxygen Delivery Method Room Air Weight: 197 lb 1.492 oz Body Mass Index (BMI) 38.5 Finger Stick Blood Glucose 187 Intake and Output for Last 24 Hours 08/19/18 08/20/18 08/21/18 23:59 23:59 23:59 Intake Total 250 / 250 1463 / 2526 1925 / 1925 Output Total 150 / 150 950 / 1250 301 / 301 Balance 100 / 100 513 / 1276 1624 / 1624 Microbiology Past 72 Hours 08/19/18 15:35 Blood Culture - Preliminary Blood Culture (Wb) - Anticubital Right No growth in 48 hours. 08/19/18 15:30 Blood Culture - Preliminary Blood Culture (Wb) - Left Forearm No growth in 48 hours. 08/20/18 00:45 Urine Culture - Preliminary Urine, Clean Catch Culture exhibits no growth. 08/19/18 15:17 Gram Stain - Final Wound - Left Foot Wound Culture - Preliminary GNR Poss Pseudomonas sp GPC Poss Enterococcus sp Laboratory Tests Past 24 Hrs 08/21/18 05:30 Hemoglobin A1c 6.8 H POC Glucose 08/21/18 08/21/1808/20/19 11:25 06:46 22:57 POC Glucose 77 101 132 H 08/20/18 17:27 POC Glucose 104 Medical Necessity - Tobacco Use Smoking Status: Former smoker Tobacco Use: Non-smoker Assessment/Plan All Active Problems (Last Updated 04/10/18 @ 19:24 by Nicanor Hoyt, DO) Wound of right foot (Acute) Open wound of right elbow (Acute) Open wound of left elbow (Acute) Wound of left lower extremity (Acute) Cellulitis (Acute) UTI (urinary tract infection) (Acute) Metabolic encephalopathy (Acute) Ulcer of left lower extremity with fat layer exposed (Resolved) 1. Acute cellulitis LLE - Vanc/Cefepime. WBC improved. No fever. prior cultures with Pseudomonas, Staph, E coli. See prior cultures. ID consulted. Continue the same. Cultures pending - possible Pseudomonas, Enterococcus. Blood cultures negative. No fever/leukocytosis. 2. Acute UTI - UA unremarkable. Ruled out. Suspect bladder spasms. 3. PAfib - on xarelto - rate controlled. Amio, metoprolol. 4. DMt2 - hold metformin, SSI. 5. Recent URI 2/2 Rhinovirus - still occasional cough. No SOB. 6. Chronic Diastolic CHF - stable 7. Hx CAD prior stent / CABG - not on asa/statin/plavix/JASMINE. On BB only 8. Hx iron deficiency anemia - continue ferrex. 9. CKDIII - stable. DVT ppx: xarelto DC planning: PTOT, increasing falls recently. This patient was seen by Donn Reinoso PA-C under the supervision of Dr. Hoyt
[2018-08-21 16:35] LABS: Bedside Glucose 174 mg/dL (70-110)
[2018-08-21] MEDS: Insulin Lispro 100 UNIT/ML INSULN.PEN SC (17:41)
[2018-08-21 18:45] LABS: Vancomycin, Trough Level 8.6 ug/mL (5.0-15.0)
--- NOTE | 2018-08-21 20:45 | PCM.RX.CS ---
Consult Pharmacy has been consulted to manage selected antiobiotic: Vancomycin Type of Consult: Follow-up Suspected Infection: Skin/Soft tissue Prior Doses of Antibiotics Received/Current Regimen: Medications Vancomycin HCl 1,750 mg/ (Sodium Chloride) 535 mls @ 250 mls/hr IV Q24H MELISSA to begin 08/22/18 1400 Discontinued Medications Vancomycin HCl 1,250 mg/ (Sodium Chloride) 275 mls @ 167 mls/hr IV Q24H MELISSA Last Admin: 08/21/18 17:41 Dose: 167 mls/hr Documented by: Labs: Sodium 142 mmol/L (136-145) 08/20/18 05:50 Potassium 4.1 mmol/L (3.5-5.1) 08/20/18 05:50 Chloride 109 mmol/L (98-107) H 08/20/18 05:50 Carbon Dioxide 32.0 mmol/L (21.0-32.0) 08/20/18 05:50 1 (5-15) L 08/20/18 05:50 BUN 22 mg/dL (7-18) H 08/20/18 05:50 1.05 mg/dL (0.55-1.02) H 08/20/18 05:50 Est GFR (MDRD) Af Amer 66 mL/min (>60) 08/20/18 05:50 Est GFR (MDRD) Non-Af 54 mL/min (>60) L 08/20/18 05:50 21.0 RATIO (10-20) H 08/20/18 05:50 Glucose 127 mg/dL (74-106) H 08/20/18 05:50 Vancomycin Trough 8.6 ug/mL (5.0-15.0) 08/21/18 17:30 Microbiology: Microbiology 08/19/18 15:35 Blood Culture (Wb) - Anticubital Right Blood Culture - Preliminary No growth in 48 hours. 08/19/18 15:30 Blood Culture (Wb) - Left Forearm Blood Culture - Preliminary No growth in 48 hours. 08/20/18 00:45 Urine, Clean Catch Urine Culture - Preliminary Culture exhibits no growth. 08/19/18 15:17 Wound - Left Foot Gram Stain - Final 08/19/18 15:17 Wound - Left Foot Wound Culture - Preliminary GNR Poss Pseudomonas sp GPC Poss Enterococcus sp Weight used for dosin kg Estimated Creatinine Clearance: 46 Goal Trough: 10-15 mcg/mL Pharmacy Plan for Drug Dosing: Vancomycin trough returned below goal at 8.6 (goal 10-15). Dose will be increased according to dosing protocol to 1750mg IV q24h beginning 08/22/18 1400. Pharmacy Service will continue to monitor and adjust dosing as required.
[2018-08-21] MEDS: Donepezil HCl 5 MG Tablet PO (21:46)
[2018-08-21 22:00] LABS: Bedside Glucose 131 mg/dL (70-110)
[2018-08-22] VITALS (10 sets, daily range): BP systolic 128–173; BP diastolic 54–86; PULSE 60–80; RESP 16–20; TEMP 36.7–37.6; O2SAT 88–95
[2018-08-22 05:57] LABS: Absolute Lymphocyte Count 1.24 X10^3/uL (0.83-4.51); Absolute Neutrophil Count 10.3 X10^3/uL (2.0-7.7); Basophil# 0.02 X10^3/uL; Basophil% 0.2 % (0-1); Eosinophil# 0.23 X10^3/uL; Eosinophils% 1.8 % (0-5); Hematocrit 40.4 % (37-47); Hemoglobin 12.3 g/dL (12.0-15.0); Lymphocyte # 1.24 X10^3/ul (4.0); Lymphocyte % 9.8 % (19-41); Mean Corp Hgb Conc 30.4 g/dL (32-36); Mean Corpuscular Volume 88.8 fL (81-99); Mean Platelet Vol. 10.5 fl (6.2-12.0); Monocyte# 0.88 X10^3/uL; Monocyte% 6.9 % (0-10); NRBC Flagged by Analyzer 0 % (0-5); Neutrophil # 10.26 X10^3/uL (2.7-7.7); Neutrophil % 80.7 % (47-70); Platelet Count 173 K/mm3 (150-450); RBC Distribution Width CV 19.9 % (11.6-14.6); RBC Distribution Width SD 63.7 fl (35.1-43.9); Red Blood Count 4.55 M/mm3 (4.2-5.4); White Blood Count 12.7 K/mm3 (4.4-11.0)
[2018-08-22 06:40] LABS: Bedside Glucose 115 mg/dL (70-110)
[2018-08-22] MEDS: Gabapentin 300 MG Capsule PO ×2 (06:46→22:00)
[2018-08-22] MEDS: Budesonide Respules 0.5 MG/2 ML AMPUL.NEB. INHALATION ×2 (06:58→19:05)
[2018-08-22] MEDS: Metoprolol Tartrate 50 MG Tablet PO ×2 (09:09→21:59)
[2018-08-22] MEDS: Acetaminophen 325 MG Tablet 650 MG PO (09:09)
[2018-08-22] MEDS: DULoxetine Hcl 60 MG Capsule PO (09:09)
[2018-08-22] MEDS: Amiodarone 200 MG Tablet PO (09:10)
[2018-08-22] MEDS: Pantoprazole Sodium 40 MG Tablet PO (09:10)
[2018-08-22] MEDS: Magnesium Oxide 400 MG Tablet PO ×2 (09:10→21:59)
[2018-08-22] MEDS: Iron Polysaccharide Complex 150 MG CAPSULE PO (09:10)
[2018-08-22] MEDS: Rivaroxaban 15 MG Tablet PO (09:10)
--- NOTE | 2018-08-22 10:43 | PCM.PN.ID ---
Patient Problems: Active and Suspected Problems (Last Updated 04/10/18 @ 19:24 by Nicanor Hoyt DO) Cellulitis (Acute) Subjective: Feeling well, no fever, no n/v/d. - Physical Exam General: Alert, Cooperative, No apparent distress Lungs: Clear to auscultation, Normal air movement Cardiovascular: Regular rate, Regular Rhythm Abdomen: Soft, Non Tender, Non-Distended Extremities: Edema - much improved Skin: Rash Present - nearly resolved on L cabrera Vital Signs Temp Pulse Resp BP Pulse Ox 99.7 F H 76 20 H 173/86 H 91 08/22/18 08:55 08/22/18 09:09 08/22/18 08:55 08/22/18 08:55 08/22/18 08:55 Oxygen Flow Rate (L/min) 2 Oxygen Delivery Method Room Air Weight: 89.4 kg Body Mass Index (BMI) 38.5 Finger Stick Blood Glucose 187 Intake and Output for Last 24 Hours 08/20/18 08/21/18 08/22/18 23:59 23:59 23:59 Intake Total 1463 / 2526 2476 / 3276 1118 / 1118 Output Total 950 / 1250 301 / 501 200 / 200 Balance 513 / 1276 2175 / 2775 918 / 918 Microbiology Past 72 Hours 08/20/18 00:45 Urine Culture - Final Urine, Clean Catch Mixed Gram Positive Organisms 08/19/18 15:17 Gram Stain - Final Wound - Left Foot Wound Culture - Final Pseudomonas aeroginosa Enterococcus faecalis 08/19/18 15:35 Blood Culture - Preliminary Blood Culture (Wb) - Anticubital Right No growth in 48 hours. 08/19/18 15:30 Blood Culture - Preliminary Blood Culture (Wb) - Left Forearm No growth in 48 hours. Laboratory Tests Past 24 Hrs 08/21/18 08/22/18 17:30 05:14 WBC 12.7 H RBC 4.55 Hgb 12.3 Hct 40.4 MCV 88.8 MCH 27.0 MCHC 30.4 L RDW Std Deviation 63.7 H RDW Coeff of Carissa 19.9 H Plt Count 173 MPV 10.5 Immature Gran % (Auto) 0.600 Neut % (Auto) 80.7 H Lymph % (Auto) 9.8 L [place] % (Auto) 6.9 Eos % (Auto) 1.8 Baso % (Auto) 0.2 Absolute Neuts (auto) 10.3 H Absolute Lymphs (auto) 1.24 Absolute Nucleated RBC 0.00 Nucleated RBC % 0 Vancomycin Trough 8.6 POC Glucose 08/22/18 08/21/18 08/21/18 06:36 21:53 16:33 POC Glucose 115 H 131 H 174 H 08/21/18 11:25 POC Glucose 77 Medical Necessity - Tobacco Use Smoking Status: Former smoker Tobacco Use: Non-smoker Route of nutrition/ use of supplements: [] Nutritional Intake: [] IV Site: [] [place] Catheter: [] - Assessment/Plan Antibiotics: [] Assessment/Plan: [] Active and Suspected Problems (Last Updated 04/10/18 @ 19:24 by Nicanor Hoyt DO) Cellulitis (Acute) L cabrera cellulitis - nearly resolved Wound cx without purulence, minimal growth. On vanc/cefepime. Serous drainage at home per the patient. PsA and enterococcus appear to be skin contaminant. Ok for d/c home off of abx given clinical improvement. Will follow, d/w Dr. Hoyt.
[2018-08-22] MEDS: Insulin Lispro 100 UNIT/ML INSULN.PEN SC (11:49)
[2018-08-22 12:05] LABS: Bedside Glucose 183 mg/dL (70-110)
--- NOTE | 2018-08-22 12:16 | RAD_ITS ---
STUDY: X-RAY CHEST REASON FOR EXAM: Female, 73 years old. Shortness of breath/dyspnea. TECHNIQUE: PA and lateral views of the chest. COMPARISON: Comparison is made with prior study dated August 07, 2018. FINDINGS: Basilar congestion and increased interstitial markings in the right lung suggestive of a mild degree of CHF. Blunting of both cost phrenic angles. Sternal cerclage wires and vascular clips are present from a prior sternotomy and coronary artery bypass graft procedure (CABG). Normal mediastinum and alee. Normal visualized pulmonary arteries. There is atherosclerotic calcification of the aortic arch with tortuosity. There are diffuse degenerative changes of the visualized thoracic spine. Increased kyphosis. Normal visualized ribs, clavicles, and shoulders. There is no demonstrated abnormality of the visualized soft tissue structures of the upper abdomen. RAD/Chest PA and Lateral IMPRESSION: Mild degree of CHF. Follow-up is recommended. Electronically Signed: Milo Hughes, at 13:55 EDT , Service support ,
[2018-08-22 17:06] LABS: Bedside Glucose 127 mg/dL (70-110)
[2018-08-22] MEDS: Furosemide 100 MG/10 ML Vial 80 MG IV (17:33)
--- NOTE | 2018-08-22 17:54 | PCM.PROGNOTE ---
Patient Problems: Active and Suspected Problems (Last Updated 04/10/18 @ 19:24 by Nicnaor Hoyt DO) Cellulitis (Acute) Subjective: Patient was seen and examined today, her pulse ox on room air was 88%, with ambulation on room air, her pulse ox went up to 90%. I have briefly entertained discharging her today home, I obtained a chest x-ray which showed evidence of congestive heart failure, I have decided to give the patient IV Lasix this evening and reevaluate her tomorrow. Patient has been refusing to take oral Lasix in the hospital, I talked briefly with her son by phone and he states that she also refuses to take it at home due to the fact that she has to urinate after taking the medication. She had an echocardiogram performed in April of this year which showed a normal EF. Infectious diseases has recommended the patient stop antibiotics, I have stopped the patient's IV antibiotics. - Physical Exam General: Alert, Cooperative, No apparent distress, Well developed HEENT: Atraumatic, PERRLA, EOMI, Normocephalic Oral: Moist Mucosa Neck: Supple, No JVD, Trachea Midline, Thyroid Normal Size and Texture Lungs: Normal air movement, No rhonchi, No wheeze, Rales - Faint inspiratory rales are noted at the bases bilaterally Cardiovascular: Regular rate, Regular Rhythm, Normal S1, Normal S2, No murmurs, No Ectopic Activity Abdomen: Bowel Sounds Present, Soft, Non Tender, Non-Distended, No hernias noted Extremities: Capillary Refill Less than 3 Seconds, Edema - Generalized lower leg edema is noted bilaterally Skin: No breakdown, Rash Present - Basis dermatitis changes are noted over both lower legs Neurological: Cranial nerves II-XII grossly intact, Neuro grossly intact, Sensory exam intact to light touch and pain, Coordination normal Psych/Mental Status: Normal Affect, Appropriate, Alert and oriented to time, place, person, mood and affect Vital Signs Temp Pulse Resp BP Pulse Ox 98.1 F 63 18 134/54 H 93 08/22/18 14:42 08/22/18 14:42 08/22/18 14:42 08/22/18 14:42 08/22/18 14:42 Oxygen Flow Rate (L/min) 2 Oxygen Delivery Method Room Air Weight: 89.4 kg Body Mass Index (BMI) 38.5 Finger Stick Blood Glucose 187 Intake and Output for Last 24 Hours 08/20/18 08/21/18 08/22/18 23:59 23:59 23:59 Intake Total 1463 / 2526 2476 / 3276 2059 / 2059 Output Total 950 / 1250 301 / 501 200 / 200 Balance 513 / 1276 2175 / 2775 1860 / 1860 Microbiology Past 72 Hours 08/20/18 00:45 Urine Culture - Final Urine, Clean Catch Mixed Gram Positive Organisms 08/19/18 15:17 Gram Stain - Final Wound - Left Foot Wound Culture - Final Pseudomonas aeroginosa Enterococcus faecalis 08/19/18 15:35 Blood Culture - Preliminary Blood Culture (Wb) - Anticubital Right No growth in 48 hours. 08/19/18 15:30 Blood Culture - Preliminary Blood Culture (Wb) - Left Forearm No growth in 48 hours. Laboratory Tests Past 24 Hrs 08/21/18 08/22/18 17:30 05:14 WBC 12.7 H RBC 4.55 Hgb 12.3 Hct 40.4 MCV 88.8 MCH 27.0 MCHC 30.4 L RDW Std Deviation 63.7 H RDW Coeff of Carissa 19.9 H Plt Count 173 MPV 10.5 Immature Gran % (Auto) 0.600 Neut % (Auto) 80.7 H Lymph % (Auto) 9.8 L [place] % (Auto) 6.9 Eos % (Auto) 1.8 Baso % (Auto) 0.2 Absolute Neuts (auto) 10.3 H Absolute Lymphs (auto) 1.24 Absolute Nucleated RBC 0.00 Nucleated RBC % 0 Vancomycin Trough 8.6 POC Glucose 08/22/18 08/22/18 08/22/18 17:01 11:47 06:36 POC Glucose 127 H 183 H 115 H 08/21/18 21:53 POC Glucose 131 H Medical Necessity - Tobacco Use Smoking Status: Former smoker Tobacco Use: Non-smoker Assessment/Plan All Active Problems (Last Updated 04/10/18 @ 19:24 by Nicanor Hoyt DO) Wound of right foot (Resolved) Open wound of right elbow (Resolved) Open wound of left elbow (Resolved) Wound of left lower extremity (Acute) Cellulitis (Acute) UTI (urinary tract infection) (Resolved) Metabolic encephalopathy (Resolved) Ulcer of left lower extremity with fat layer exposed (Resolved) #1 cellulitis of the left lower leg-resolved at this time, antibiotics were stopped #2 acute on chronic diastolic CHF-patient will be given IV Lasix and evaluated tomorrow #3 hypoxia secondary to #2-patient will be reevaluated tomorrow #4 paroxysmal atrial fibrillation #5 type 2 diabetes #6 coronary artery disease #7 iron deficiency anemia #8 noncompliance with medical regimen-patient is not taking her Lasix as directed #9 dementia #10 chronic kidney disease stage III #11 chronic stasis dermatitis changes to both lower legs-continue Eucerin cream Code Visit Inpatient E&M: 96340 Subs Hosp L2
[2018-08-22] MEDS: Donepezil HCl 5 MG Tablet PO (22:00)
[2018-08-22 22:10] LABS: Bedside Glucose 142 mg/dL (70-110)
[2018-08-23] VITALS (7 sets, daily range): BP systolic 156–190; BP diastolic 68–85; PULSE 57–63; RESP 16; TEMP 36.4–36.6; O2SAT 96–99
[2018-08-23] MEDS: oxyCODONE 5 MG Tablet PO ×2 (06:46→13:15)
[2018-08-23] MEDS: Gabapentin 300 MG Capsule PO (06:46)
[2018-08-23] MEDS: Budesonide Respules 0.5 MG/2 ML AMPUL.NEB. INHALATION (07:03)
[2018-08-23] MEDS: Iron Polysaccharide Complex 150 MG CAPSULE PO (08:51)
[2018-08-23] MEDS: Pantoprazole Sodium 40 MG Tablet PO (08:51)
[2018-08-23] MEDS: Magnesium Oxide 400 MG Tablet PO (08:52)
[2018-08-23] MEDS: DULoxetine Hcl 60 MG Capsule PO (08:52)
[2018-08-23] MEDS: Metoprolol Tartrate 50 MG Tablet PO (08:52)
[2018-08-23] MEDS: Rivaroxaban 15 MG Tablet PO (08:52)
[2018-08-23] MEDS: Amiodarone 200 MG Tablet PO (08:53)
[2018-08-23] MEDS: Furosemide 20 MG/2 ML VIAL IV (08:53)
[2018-08-23 11:36] LABS: Bedside Glucose 171 mg/dL (70-110)
[2018-08-23] MEDS: Insulin Lispro 100 UNIT/ML INSULN.PEN SC (11:36)
--- NOTE | 2018-08-23 11:54 | DCINST_ITS ---
- Discharge Diagnoses Current Active Problems: Current Active and Chronic Problems (Last Updated 04/10/18 @ 19:24 by Nicanor Hoyt DO) Cellulitis (Acute) CAD (coronary artery disease) (Chronic) Diabetes (Chronic) You will use the following diet at home:: Calorie/Carbohydrate Controlled (specify 1200, 1400, etc) - no added sugar diet Your food should be the consistency of: Regular Your liquids should be the consistency of: Regular/Thin Discharge Activity: Return to Normal Activity Weight Bearing Status: Weight bearing as tolerated Allergies/Adverse Reactions: Allergies codeine Allergy (Unknown, Verified 08/19/18 14:16) Hives ciprofloxacin [From Cipro] Allergy (Verified 08/19/18 14:16) Hives ciprofloxacin HCl [From Cipro] Allergy (Verified 08/19/18 14:16) Hives Latex, Natural Rubber Allergy (Verified 08/19/18 14:16) Rash Penicillins [PCN] Allergy (Verified 08/19/18 14:16) Hives adhesive tape Adverse Reaction (Verified 08/19/18 14:16) Rash Medications to take at Discharge Amiodarone HCl 200 mg PO DAILY 04/09/18 Duloxetine HCl 60 mg PO DAILY 04/09/18 Iron Polysaccharide Complex [Ferrex 150] 150 mg PO DAILY 04/09/18 Magnesium Oxide [Mag-Ox 400] 400 mg PO BID 04/09/18 Metoprolol Tartrate [Lopressor (beta man)] 50 mg PO BID 04/09/18 Pantoprazole Sodium [Protonix] 40 mg PO DAILY 04/09/18 Rivaroxaban [Xarelto] 15 mg PO DAILY 04/09/18 Budesonide Inhaler 180 mcg [Pulmicort Inhaler 180 mcg] 1 puff INHALATION BID #1 inhaler 04/17/18 Docusate Sodium 100 mg PO DAILY PRN PRN 05/22/18 Ergocalciferol (Vitamin D2) [Vitamin D2] 50,000 unit PO QWEEK 05/22/18 Metformin HCl [Metformin HCl ER] 500 mg PO DAILY 05/22/18 Donepezil HCl 5 mg PO DAILY 08/19/18 Gabapentin [Neurontin] 300 mg PO BID 08/19/18 Potassium Chloride [Klor-Con M20] 20 meq PO BID 08/19/18 traMADol [Ultram] 50 mg PO BID PRN PRN 08/19/18 Acetaminophen [Tylenol Tablet] 650 mg PO Q6H PRN PRN tablet 08/23/18 Furosemide [Lasix] 60 mg PO DAILY #1 tab 08/23/18 The following prescriptions were given: Furosemide [Lasix] 60 mg PO DAILY #1 tab Primary Care Physician: Octaviano Franco Chi, MD [Primary Care Provider] - Please follow up with your Primary Care Physician in: in one week Test Results: Test results from this visit will be discussed in further detail at your follow- up appointment, if applicable.
--- NOTE | 2018-08-23 14:59 | CASEMGMT ---
INÉS GLEASON called patient's son to inquire if he would like patient to receive HHC at discharge. Son states he would like senior care to come to home. INÉS GLEASON sent referral to [facility], who patient has had in the past and confirmed acceptance. INÉS GLEASON updated nursing and hospitalist.
[2018-08-23 21:21] LABS: Bedside Glucose 120 mg/dL (70-110)
--- NOTE | 2018-08-25 09:17 | PCM.DC.SUM ---
Discharge Date and Diagnosis Date of Admission: 08/19/18 Date of Discharge: 08/23/18 - Primary Discharge Diagnosis #1 cellulitis of the left lower leg #2 acute on chronic diastolic CHF #3 hypoxia secondary to #2 #4 paroxysmal atrial fibrillation #5 type 2 diabetes #6 coronary artery disease #7 iron deficiency anemia #8 noncompliance with medical regimen #9 dementia #10 chronic kidney disease stage III #11 chronic stasis dermatitis changes to both lower legs - Secondary Discharge Diagnosis Chronic Problems (Last Updated 04/10/18 @ 19:24 by Nicanor Hoyt DO) Venous insufficiency of both lower extremities (Chronic) Open wound of right knee (Chronic) Traumatic,penetratiung with fat layer exposed. CAD (coronary artery disease) (Chronic) Diabetes (Chronic) Bilateral lower extremity edema (Chronic) Diastolic CHF (Chronic) Cognitive impairment (Chronic) patient is confused at times Iron deficiency anemia (Chronic) etiology unknown Ulcer of right lower extremity with fat layer exposed (Chronic) Ulcer of right foot with fat layer exposed (Chronic) Ulcer of left lower extremity with fat layer exposed (Chronic) PVD (peripheral vascular disease) (Chronic) Controlled diabetes mellitus (Chronic) Edema, lower extremity (Chronic) Presence of stent in coronary artery (Chronic) PTCA/stent to CX; PTCA/Stent PTCA/stent to prox RCA 05/06; PTCA/LILY in mid to distal RCA 08/29/12 Atherosclerotic heart disease of [place] coronary artery without angina pectoris (Chronic) PTCA/stent to CX; PTCA/Stent PTCA/stent to prox RCA 05/06; PTCA/LILY in mid to distal RCA 08/29/12; CABG x2 ARREGUIN tp LAD and SVG to OM2 01/02/11 S/P CABG (coronary artery bypass graft) (Chronic ~01/02/11) CABG x2 ARREGUIN tp LAD and SVG to OM2 01/02/11 Paroxysmal atrial fibrillation (Chronic) Hyperlipidemia (Chronic) Hypertension (Chronic) Hospital Course and Treatment Consultations 08/19/18 16:57 Consult: Onc/Wound/travel services professional Routine Comment: Operations: None Procedures: None Summary of Care Provided: The patient is a 73 year old F who was seen in the emergency room at [facility], she was brought in due to increasing redness of her left lower leg and swelling. She was referred from the wound care center to the emergency room for evaluation. CBC revealed an elevated white blood cell count of 13.2, chemistry profile revealed a creatinine of 1.21, BUN was 24. Patient was felt to have left lower extremity cellulitis, she was admitted to [facility] [place] [place] and placed on IV antibiotics. It was discovered patient was not taking her home Lasix as directed and it was felt that some of the patient's lower extremity redness and swelling was due to fluid retention. Patient was seen in consultation by infectious diseases who recommended antibiotics be continued for a few days and then stop the antibiotics. Patient was noted to be hypoxic and chest x-ray was obtained which revealed the patient to be in mild congestive heart failure. Previous echocardiogram done several months before showed a normal EF. Patient was given IV Lasix and her condition improved. On 08/23/2018, patient was seen and examined: On examination she appeared in good health and spirits. Vital signs as documented. Skin warm and dry and without overt rashes. Neck without JVD. Lungs clear. Heart exam notable for regular rhythm, normal sounds and absence of murmurs, rubs or gallops. Abdomen unremarkable and without evidence of organomegaly, masses, or abdominal aortic enlargement. Extremities-stasis dermatitis changes were noted to both lower extremities. Neuro: Cranial nerves II through XII are grossly intact, no focal motor deficits were noted, sensation to light touch and pinprick is intact. Psych: Patient is alert, she exhibits mild confusion On 08/23/2018, patient was seen and examined and felt to be in stable condition for discharge home - Physical Exam Vital Signs Temp Pulse Resp BP Pulse Ox 97.6 F L 60 16 190/85 H 96 08/23/18 14:59 08/23/18 14:59 08/23/18 14:59 08/23/18 14:59 08/23/18 14:59 Oxygen Flow Rate (L/min) 2 Oxygen Delivery Method Room Air Weight: 89.4 kg Body Mass Index (BMI) 38.5 Finger Stick Blood Glucose 187 Intake and Output for Last 24 Hours 08/23/18 08/24/18 08/25/18 23:59 23:59 23:59 Intake Total 400 / 400 Output Total 1000 / 1000 Balance -600 / -600 Microbiology Past 72 Hours 08/20/18 00:45 Urine Culture - Final Urine, Clean Catch Mixed Gram Positive Organisms 08/19/18 15:17 Gram Stain - Final Wound - Left Foot Wound Culture - Final Pseudomonas aeroginosa Enterococcus faecalis Discharge Activity: Return to Normal Activity Weight Bearing Status: Weight bearing as tolerated Home Medications: Medications to take at Discharge Amiodarone HCl 200 mg PO DAILY 04/09/18 Duloxetine HCl 60 mg PO DAILY 04/09/18 Iron Polysaccharide Complex [Ferrex 150] 150 mg PO DAILY 04/09/18 Magnesium Oxide [Mag-Ox 400] 400 mg PO BID 04/09/18 Metoprolol Tartrate [Lopressor (beta man)] 50 mg PO BID 04/09/18 Pantoprazole Sodium [Protonix] 40 mg PO DAILY 04/09/18 Rivaroxaban [Xarelto] 15 mg PO DAILY 04/09/18 Budesonide Inhaler 180 mcg [Pulmicort Inhaler 180 mcg] 1 puff INHALATION BID #1 inhaler 04/17/18 Docusate Sodium 100 mg PO DAILY PRN PRN 05/22/18 Ergocalciferol (Vitamin D2) [Vitamin D2] 50,000 unit PO QWEEK 05/22/18 Metformin HCl [Metformin HCl ER] 500 mg PO DAILY 05/22/18 Donepezil HCl 5 mg PO DAILY 08/19/18 Gabapentin [Neurontin] 300 mg PO BID 08/19/18 Potassium Chloride [Klor-Con M20] 20 meq PO BID 08/19/18 traMADol [Ultram] 50 mg PO BID PRN PRN 08/19/18 Acetaminophen [Tylenol Tablet] 650 mg PO Q6H PRN PRN tab 08/23/18 Furosemide [Lasix] 60 mg PO DAILY #1 tab 08/23/18 Following Prescrptions Were Given to Patient: Furosemide [Lasix] 60 mg PO DAILY #1 tab Primary Care Physician: Octaviano Franco Chi, MD [Primary Care Provider] - Please follow up with your Primary Care Physician in: in one week Please Follow Up With: Octaviano Franco Chi, MD When: ONE WEEK Disposition: Home Minutes spent on discharge:: 32 Patient Condition:: Stable Medical Necessity - Tobacco Use Smoking Status: Former smoker Tobacco Use: Non-smoker Meaningful Use Info Meaningful Use Diagnoses (Choose all that apply): CHF - CHF JASMINE/ARB ordered at discharge?: No Reason JASMINE/ARB not ordered?: Allergy - NORMAL EF-NOT RECOMMENDED Documented LVEF (%): 65 Code Visit Inpatient E&M: [id number] Disch Hosp
--- NOTE | 2018-08-26 14:47 | CASEMGMT ---
RN CM DC PHONE CALL DC DATE: 08/23/18 DC Disposition: Home with [facility] ([facility]) Diagnosis on Discharge: Cellulitis L lower leg. LACE/STRATA: 19/05 Attempted call to phone. No answer and no machine pickup with identifier. Eduarda MOSELEYN RN ACM
== END 2018-08-23 17:19 | disposition home or self-care (01) | DRG 602 ==
LOC: ED 14:57 → MS3 15:52
PROVIDERS: Internal Medicine; Physician Assistant; Admitting Provider Student in an Organized Health Care Education/Training Program; Emergency Provider Emergency Medicine; Family Provider Family Medicine Geriatric Medicine; PCP Family Medicine Geriatric Medicine; Visit Provider Internal Medicine
DX: L03.116 Cellulitis of left lower limb (principal); I50.33 Acute on chronic diastolic (congestive) heart failure; I13.0 Hypertensive heart and chronic kidney disease with heart failure and stage 1 through stage 4 chronic kidney disease, or unspecified chronic kidney disease; E11.22 Type 2 diabetes mellitus with diabetic chronic kidney disease; N18.3 Chronic kidney disease, stage 3 (moderate); I48.0 Paroxysmal atrial fibrillation; D50.9 Iron deficiency anemia, unspecified; F03.90 Unspecified dementia, unspecified severity, without behavioral disturbance, psychotic disturbance, mood disturbance, and anxiety; I87.2 Venous insufficiency (chronic) (peripheral); R41.89 Other symptoms and signs involving cognitive functions and awareness; I25.10 Atherosclerotic heart disease of native coronary artery without angina pectoris; R09.02 Hypoxemia; Z91.19 Patient's noncompliance with other medical treatment and regimen; Z79.84 Long term (current) use of oral hypoglycemic drugs; Z95.5 Presence of coronary angioplasty implant and graft; Z95.1 Presence of aortocoronary bypass graft; E78.5 Hyperlipidemia, unspecified; Z87.891 Personal history of nicotine dependence; R29.6 Repeated falls; Z86.718 Personal history of other venous thrombosis and embolism; Z79.01 Long term (current) use of anticoagulants
CPT/HCPCS: 36415; 71046; 80048; 80202; 81001; 82962; 83036; 85025; 87040; 87070; 87077; 87086; 87088; 87184; 87186; 87205; 87640; 94640; 97802; 99284; J7030; J7050; A4216; J1940

== ENCOUNTER 2018-08-29 12:15 | Outpatient (RCR) | payer MEDICARE, SELFPAY ==
[2018-08-05 00:29] VITALS: BP 193/99; PULSE 60; RESP 20; TEMP 36.4
[2018-08-07 11:32] VITALS: BP 166/83; PULSE 60; RESP 20; TEMP 37; BMI 40.4
[2018-08-07 16:50] LABS: Basophil# 0.01 X10^3/uL; Basophil% 0.1 % (0-1); Eosinophil# 0.06 X10^3/uL; Eosinophils% 0.5 % (0-5); Hematocrit 46.1 % (37-47); Hemoglobin 13.7 g/dl (12.0-15.0); Mean Corp Hgb Conc 29.7 g/gl (32-36); Mean Corpuscular Hgb 25.9 pg (27.0-32.0); Mean Corpuscular Volume 87.1 fL (81-99); Mean Platelet Vol. 10.7 fl (6.2-12.0); Monocyte# 0.92 X10^3/uL; Monocyte% 7.1 % (0-10); Neutrophil # 8.97 X10^3/uL (2.7-7.7); Neutrophil % 69.6 % (47-70); Platelet Count 314 K/mm3 (150-450); RBC Distribution Width CV 18.5 % (11.6-14.6); RBC Distribution Width SD 58.1 fl (35.1-43.9); Red Blood Count 5.29 M/mm3 (4.2-5.4); White Blood Count 12.9 K/mm3 (4.4-11.0)
[2018-08-07 16:57] LABS: Anion Gap 6 (5-15); BUN 26 mg/dL (7-18); BUN/Creat Ratio 19.3 RATIO (10-20); Calcium,Total 8.9 mg/dL (8.5-10.1); Chloride 105 mmol/L (98-107); Creatinine, Serum 1.35 mg/dL (0.55-1.02); EST Glomerular Filtration Rate 41 mL/min (>60); Est Glom Filt Rate - Afr Amer 49 mL/min (>60); Estimated Creatinine Clearance 26.26 ml/min; Glucose 170 mg/dL (74-106); Potassium 3.5 mmol/L (3.5-5.1); Sodium Level 141 mmol/L (136-145)
--- NOTE | 2018-08-07 16:58 | RAD_ITS ---
STUDY: X-RAY CHEST REASON FOR EXAM: Female, 73 years old. Chest pain TECHNIQUE: PA and lateral views of the chest COMPARISON: X-ray chest July 29, 2018 FINDINGS: Post CABG changes are present. There is a small left base infiltrate. There are no pleural effusions. There is no pneumothorax. The heart is normal in size. The visualized osseous structures are within normal limits. RAD/Chest PA and Lateral IMPRESSION: Small left lung base infiltrate. Electronically Signed: Ryan Rider, at 19:29 EDT Tel , Service support ,
--- NOTE | 2018-08-07 17:02 | PCM.WC.PN ---
(1) Ulcer of left lower extremity with fat layer exposed Status: Acute Current Visit: Yes Code(s): L97.922 - Non-pressure chronic ulcer of unspecified part of left lower leg with fat layer exposed (2) Open wound of right knee Status: Chronic Current Visit: Yes Code(s): S81.001A - Unspecified open wound, right knee, initial encounter Comment: Traumatic,penetratiung with fat layer exposed. (3) Venous insufficiency of both lower extremities Status: Chronic Current Visit: Yes Code(s): I87.2 - Venous insufficiency (chronic) (peripheral) (4) Ulcer of left lower extremity with fat layer exposed Status: Resolved Current Visit: No Code(s): L97.922 - Non-pressure chronic ulcer of unspecified part of left lower leg with fat layer exposed (5) Bilateral lower extremity edema Status: Chronic Current Visit: Yes Code(s): R60.0 - Localized edema Type of Wound Date of Service: 08/07/18 Chief Complaint: New left cabrera wound. Bilateral lower extremity edema. Right knee ulcer History of Wound: Ms. Ya is a 73-year-old who presents with a new left elbow and right knee wound after recent fall in her apartment. States that she tripped over her walker. Was seen in the emergency room status post fall and had sutures to her right knee and Steri-Strips to her left elbow. Right elbow wound had been previously improving but opened up again after fall. She had glue applied in the emergency room. She feels well otherwise denies chills, fever or feeling of unwell. Elbow wounds are healed. Right anterior knee ulcer had SNAP vac that came off a couple days ago. She has a new wound on right anterior lower leg. Progress of Wound: Right upper knee/lower thigh wound is healed. Left lower extremity/cabrera ulcer appears healed as well however patient has significant bilateral lower extremity swelling and skin breakdown. - Physical Exam Vital Signs Temp Pulse Resp BP 98.6 F 60 20 H 166/83 H 08/07/18 11:32 08/07/18 11:32 08/07/18 11:32 08/07/18 11:32 General: Alert, Oriented x3, Cooperative, No apparent distress HEENT: Atraumatic, Normocephalic Oral: Moist Mucosa Neck: Supple Lungs: Wheezes Abdomen: Non Tender, Obese Skin: Ulcer/ Wound Wound Measurements and Assessment WC - Nurse 1 - General Ulcer Measurement Start: 08/07/18 11:32 Freq: Status: Active Protocol: Activity Type Activity Date Activity User E-Sign Co-Sign Detail Recorded Client Recorded Date Recorded By Document 08/07/18 11:32 MW [id number] 08/07/18 11:35 MW 08/07/18 11:32 Wound Center Nurse 1 [Ulcer Assessment] #19 Left medial cabrera -Combined with other wound No -Current Size (cm) - Length 5.6 -Current Size (cm) - Width 5.0 -Current Size (cm) - Depth 0.1 -Total Square Cm 28.00 -Photo Taken No -Epithelialization None Present -Tunneling No -Undermining/Tunneling No -Circular Undermining No -Exudate Amt Large -Exudate Type Serosanguineous -Wound Margin Distinct, Outline Attached -Granulation Amt Large (67-100%) -Granulation Quality Red -Slough/Fibrin Yes -Necrosis Amt Small (1-33%) -Necrotic Tissue Type Adherent Slough -Texture (Char-wound Skin Appearance) Assessed, Scarring -Moisture (Char-wound Skin Appearance Assessed,Dry/ ) Scaly -Color (Char-wound Skin Appearance) Assessed -Temperature (Char-wound Skin No Abnormality Appearance) (Pt Warm) -Tenderness on Palpation (Char-wound No Skin Appearance) -Ulcer Cleansing Rinsed/ Irrigated with Saline -Foul Odor after Cleansing No -Anesthetic Used 4% Lidocaine Solution 18. R medial superior knee -Combined with other wound No -Current Size (cm) - Length 0.1 -Current Size (cm) - Width 0.1 -Current Size (cm) - Depth 0.1 -Total Square Cm 0.01 -Photo Taken No -Epithelialization Large 67-100% -Tunneling No -Undermining/Tunneling No -Circular Undermining No -Exudate Amt None Present -Wound Margin Flat & Intact -Granulation Amt None Present (0 %) -Slough/Fibrin Yes -Necrosis Amt Small (1-33%) -Necrotic Tissue Type Adherent Slough -Texture (Char-wound Skin Appearance) Assessed, Scarring -Moisture (Char-wound Skin Appearance Assessed,Dry/ ) Scaly -Color (Char-wound Skin Appearance) Assessed -Temperature (Char-wound Skin No Abnormality Appearance) (Pt Warm) -Tenderness on Palpation (Char-wound No Skin Appearance) -Ulcer Cleansing Rinsed/ Irrigated with Saline -Foul Odor after Cleansing No -Anesthetic Used 4% Lidocaine Solution [Edema Assessment] -Lower Limb Edema Present Yes -Right Calf (cm) 44.5 -Right Ankle (cm) 29.5 -Left Calf (cm) 44 -Left Ankle (cm) 28 WC - Nurse 2 - General Ulcer CM Notes Start: 08/07/18 11:32 Freq: Status: Active Protocol: Activity Type Activity Date Activity User E-Sign Co-Sign Detail Recorded Client Recorded Date Recorded By Document 08/07/18 11:39 MW [id number] 08/07/18 11:43 MW 08/07/18 11:39 Wound Center Nurse 2 [Procedure/Treatment] #19 Left medial cabrera -Time 11:40 -Correct Patient Yes -Correct Side, Site, Position Yes -Correct Procedure Yes -Procedure Performed No -Wound/Ulcer Outcome Not Healed -Ulcer Cleansing Rinsed/ Irrigated with Saline -Foul Odor after Cleansing No -Bioengineered Tissue No -Bleeding Controlled with NA -Offloading No -Treatment Response Procedure Tolerated Well 18. R medial superior knee -Time 11:40 -Correct Patient Yes -Correct Side, Site, Position Yes -Correct Procedure Yes -Procedure Performed No -Post Debridement Size (cm) - Length 0 -Post Debridement Size (cm) - Width 0 -Post Debridement Size (cm) - Depth 0 -Total Square Cm 0 -Wound/Ulcer Outcome Healed- Epithelialized [See Physician Procedure note for Specifics] Pain Scale: 0-10 Numeric [Pain] -Is Patient Pain Free? Yes Musculoskeletal: No Muscle Wasting Neurological: Cranial nerves II-XII grossly intact Psych/Mental Status: Normal Affect Debridement Note Post-Debridement Measurements/Treatment WC - Nurse 2 - General Ulcer CM Notes Start: 08/07/18 11:32 Freq: Status: Active Protocol: Activity Type Activity Date Activity User E-Sign Co-Sign Detail Recorded Client Recorded Date Recorded By Document 08/07/18 11:39 MW [id number] 08/07/18 11:43 MW 08/07/18 11:39 Wound Center Nurse 2 #19 Left medial cabrera -Time 11:40 -Correct Patient Yes -Correct Side, Site, Position Yes -Correct Procedure Yes -Procedure Performed No -Wound/Ulcer Outcome Not Healed -Ulcer Cleansing Rinsed/ Irrigated with Saline -Foul Odor after Cleansing No -Bioengineered Tissue No -Bleeding Controlled with NA -Offloading No -Treatment Response Procedure Tolerated Well 18. R medial superior knee -Time 11:40 -Correct Patient Yes -Correct Side, Site, Position Yes -Correct Procedure Yes -Procedure Performed No -Post Debridement Size (cm) - Length 0 -Post Debridement Size (cm) - Width 0 -Post Debridement Size (cm) - Depth 0 -Total Square Cm 0 -Wound/Ulcer Outcome Healed- Epithelialized Pain Scale: 0-10 Numeric Is Patient Pain Free? Yes No debridement was completed today Assessment/Plan Active Problems (Last Updated 04/10/18 @ 19:24 by Nicanor Hoyt, DO) Venous insufficiency of both lower extremities (Chronic) Open wound of right knee (Chronic) Traumatic,penetratiung with fat layer exposed. Bilateral lower extremity edema (Chronic) Ulcer of left lower extremity with fat layer exposed (Acute) Assessment: Venous insufficiency of both lower extremities. Wound of left lower extremity. Bilateral lower extremity edema. Ulcer of right lower extremity with fat layer exposed. Ulcer of right foot with fat layer exposed-healed Plan: Right upper knee/lower thigh wound is healed. Bilateral lower extremity edema worsened with left cabrera skin breakdown. No debridement was completed today. Aquacel extra with ABD applied. Continue Bilateral 3M wraps for edema management. Follow-up on Sunday for dressing change and advised to elevate lower extremities when seated and in bed. She would probably benefit from seeing OT for lymphadema management of her lower extremities once her wounds are healed. Optimal blood sugar control. Increased protein intake also recommended. Plans with diuretic management also strongly encouraged. She states that she stopped her Lasix 2 weeks ago. Schedule follow-up with her PCP today. All her questions were answered and she was advised to call with any further questions or concerns. Follow-up in 1 week. This note was generated with [employer] dictation software. It may contain incorrect words, spelling, and punctuation that were not noted in checking the note before signing.
[2018-08-07 17:14] LABS: POSITIVE COUNT NO; POSITIVE DIFFERENTIAL NO; POSITIVE MORPHOLOGY NO
[2018-08-09 12:12] VITALS: BP 184/75; PULSE 57; RESP 16; TEMP 36.1; BMI 40.4
[2018-08-15 12:25] VITALS: BP 149/73; PULSE 20; RESP 20; TEMP 36.1; BMI 40.4
--- NOTE | 2018-08-15 13:07 | PN.PCM_ITS ---
(1) Ulcer of left lower extremity with fat layer exposed Status: Chronic Current Visit: Yes Code(s): L97.922 - Non-pressure chronic ulcer of unspecified part of left lower leg with fat layer exposed (2) Open wound of right knee Status: Chronic Current Visit: Yes Code(s): S81.001A - Unspecified open wound, right knee, initial encounter Comment: Traumatic,penetratiung with fat layer exposed. 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 Bilateral lower extremity edema. Right knee ulcer History of Wound: Ms. Ya is a 73-year-old who presents with a new left elbow and right knee wound after recent fall in her apartment. States that she tripped over her walker. Was seen in the emergency room status post fall and had sutures to her right knee and Steri-Strips to her left elbow. Right elbow wound had been previously improving but opened up again after fall. She had glue applied in the emergency room. She feels well otherwise denies chills, fever or feeling of unwell. Elbow wounds are healed. Right anterior knee ulcer had SNAP vac that came off a couple days ago. She has a new wound on right anterior lower leg. Progress of Wound: Edema had improved during her nurse visit on Sunday however, again presents today with significant edema and seeping from her left lower extremity ulcer with char-ulcer dermatitis. - Physical Exam Vital Signs Temp Pulse Resp BP 96.9 F L 20 L 20 H 149/73 H 08/15/18 12:25 08/15/18 12:25 08/15/18 12:25 08/15/18 12:25 General: Alert, Oriented x3, Cooperative, No apparent distress HEENT: Atraumatic, Normocephalic Oral: Moist Mucosa Neck: Supple Lungs: Normal air movement Extremities: No cyanosis, Edema Skin: Ulcer/ Wound Wound Measurements and Assessment WC - Nurse 1 - General Ulcer Measurement Start: 08/07/18 11:32 Freq: Status: Active Protocol: Activity Type Activity Date Activity User E-Sign Co-Sign Detail Recorded Client Recorded Date Recorded By Document 08/15/18 12:25 BM [id number] 08/15/18 12:31 BMF 08/15/18 12:25 Wound Center Nurse 1 [Ulcer Assessment] #19 Left medial cabrera -Combined with other wound No -Current Size (cm) - Length 6 -Current Size (cm) - Width 6.2 -Current Size (cm) - Depth 0.1 -Total Square Cm 37.2 -Date of Last Picture (Recall this 08/15/18 field) -Photo Taken Yes -Epithelialization None Present -Tunneling No -Undermining/Tunneling No -Circular Undermining No -Exudate Amt Large -Exudate Type Serous -Wound Margin Flat & Intact -Granulation Amt Large (67-100%) -Granulation Quality Red -Slough/Fibrin Yes -Necrosis Amt Small (1-33%) -Necrotic Tissue Type Adherent Slough -Texture (Char-wound Skin Appearance) Assessed, Excoriation, Rash -Moisture (Char-wound Skin Appearance Assessed, ) Weeping -Color (Char-wound Skin Appearance) Assessed, Erythema -Temperature (Char-wound Skin No Abnormality Appearance) (Pt Warm) -Tenderness on Palpation (Char-wound Yes Skin Appearance) -Ulcer Cleansing Rinsed/ Irrigated with Saline -Foul Odor after Cleansing No -Anesthetic Used 4% Lidocaine Solution [Edema Assessment] -Lower Limb Edema Present Yes -Right Calf (cm) 44.5 -Right Ankle (cm) 29.2 -Left Calf (cm) 44.1 -Left Ankle (cm) 27.5 WC - Nurse 2 - General Ulcer CM Notes Start: 08/07/18 11:32 Freq: Status: Active Protocol: Activity Type Activity Date Activity User E-Sign Co-Sign Detail Recorded Client Recorded Date Recorded By Document 08/15/18 12:53 MW [id number] 08/15/18 13:00 MW 08/15/18 12:53 Wound Center Nurse 2 [Procedure/Treatment] #19 Left medial cabrera -Time 12:53 -Correct Patient Yes -Correct Side, Site, Position Yes -Correct Procedure Yes -Procedure Performed Yes -Type of Procedure Debridement -Clinical Debridement Subcutaneous -Post Debridement Size (cm) - Length 6.0 -Post Debridement Size (cm) - Width 6.5 -Post Debridement Size (cm) - Depth 0.1 -Total Square Cm 39.00 -Wound/Ulcer Outcome Not Healed -Ulcer Cleansing Rinsed/ Irrigated with Saline -Foul Odor after Cleansing No -Bioengineered Tissue No -Bleeding Controlled with Pressure -Offloading No -Treatment Response Procedure Tolerated Well [See Physician Procedure note for Specifics] Pain Scale: 0-10 Numeric [Pain] -Is Patient Pain Free? Yes Musculoskeletal: Arthritic Changes Neurological: Cranial nerves II-XII grossly intact Psych/Mental Status: Normal Affect Debridement Note Post-Debridement Measurements/Treatment WC - Nurse 2 - General Ulcer CM Notes Start: 08/07/18 11:32 Freq: Status: Active Protocol: Activity Type Activity Date Activity User E-Sign Co-Sign Detail Recorded Client Recorded Date Recorded By Document 08/07/18 11:39 MW [id number] 08/07/18 11:43 MW Document 08/15/18 12:53 MW [id number] 08/15/18 13:00 MW 08/07/18 08/15/18 11:39 12:53 Wound Center Nurse 2 #19 Left medial cabrera -Time 11:40 12:53 -Correct Patient Yes Yes -Correct Side, Site, Position Yes Yes -Correct Procedure Yes Yes -Procedure Performed No Yes -Type of Procedure Debridement -Clinical Debridement Subcutaneous -Post Debridement Size (cm) - Length 6.0 -Post Debridement Size (cm) - Width 6.5 -Post Debridement Size (cm) - Depth 0.1 -Total Square Cm 39.00 -Wound/Ulcer Outcome Not Healed Not Healed -Ulcer Cleansing Rinsed/ Rinsed/ Irrigated with Irrigated with Saline Saline -Foul Odor after Cleansing No No -Bioengineered Tissue No No -Bleeding Controlled with NA Pressure -Offloading No No -Treatment Response Procedure Procedure Tolerated Well Tolerated Well 18. R medial superior knee -Time 11:40 -Correct Patient Yes -Correct Side, Site, Position Yes -Correct Procedure Yes -Procedure Performed No -Post Debridement Size (cm) - Length 0 -Post Debridement Size (cm) - Width 0 -Post Debridement Size (cm) - Depth 0 -Total Square Cm 0 -Wound/Ulcer Outcome Healed- Epithelialized Pain Scale: 0-10 Numeric Is Patient Pain Free? Yes Yes Wound debrided: Left lower extremity Wound Grade/Stage: Stage II Type of Debridement: Excisional debridement Anesthesia Used: 4% Lidocaine Solution Depth: Down to and including healthy tissue, in the subcutaneous layer Percentage of wound debrided: 100 Instrument Used: 3mm curette Tissue Removed: Slough and devitalized tissue Severity: Fat Layer Exposed Amount of bleeding with debridement: Mild Bleeding Controlled with: Pressure Patient tolerated procedure well Assessment/Plan Clinical Impression(s) from Imaging Studies Chest X-Ray 08/07/18 16:58 IMPRESSION: Small left lung base infiltrate. Electronically Signed: Ryan Adry, at 19:29 EDT Tel , Service support , Active Problems (Last Updated 04/10/18 @ 19:24 by Nicanor Hoyt DO) Venous insufficiency of both lower extremities (Chronic) Open wound of right knee (Chronic) Traumatic,penetratiung with fat layer exposed. Bilateral lower extremity edema (Chronic) Ulcer of left lower extremity with fat layer exposed (Chronic) Assessment: Venous insufficiency of both lower extremities. Wound of left lower extremity. Bilateral lower extremity edema. Ulcer of right lower extremity with fat layer exposed. Ulcer of right foot with fat layer exposed-healed Plan: Bilateral lower extremity edema worsened with left leg skin breakdown. Periwound dermatitis. Xeroform and ABD to ulcerated area. Continue Bilateral 3M wraps for edema management. Follow-up on Sunday for dressing change and advised to elevate lower extremities when seated and in bed. She would probably benefit from seeing OT for lymphadema management of her lower extremities once her wounds are healed. Optimal blood sugar control. Increased protein intake also recommended. She reports compliance now with her diabetic management. All her questions were answered and she was advised to call with any further questions or concerns. Follow-up in 1 week. This note was generated with [employer] software. It may contain incorrect words, spelling, and punctuation that were not noted in checking the note before signing.
[2018-08-19 13:34] VITALS: BP 132/54; PULSE 60; RESP 18; TEMP 36.4; BMI 40.4
--- NOTE | 2018-08-19 13:38 | BH.SGPN.T2 ---
Patient reports she fell (slipped) out of bed. She states she was getting up to use the restroom and hit her hand on her nightstand when she fell. Nurse notes small skin abrasion to top of right hand. Cleaned with soap and water, adaptic applied. M. Day RN Behaviors/Verbalizations/Mental Status: [] Client Response/Progress/Benefit: [] Narrative Note: []
--- NOTE | 2018-08-19 14:04 | WC ---
pt left lower leg has increased reddness noted with warmth and tenderness to touch. social media manager Henrietta Lawson RN shown pt RLE increased reddness and pain. Henrietta encouarged to go to ER today to be evaluated. pt agreed. and will go to ER after leaving the wound center
[2018-08-29 12:38] VITALS: BP 184/76; PULSE 59; RESP 22; TEMP 35.9; BMI 40.4
--- NOTE | 2018-08-29 13:07 | PCM.WC.PN ---
(1) Ulcer of left lower extremity with fat layer exposed Status: Chronic Current Visit: Yes Code(s): L97.922 - Non-pressure chronic ulcer of unspecified part of left lower leg with fat layer exposed (2) Open wound of right knee Status: Chronic Current Visit: Yes Code(s): S81.001A - Unspecified open wound, right knee, initial encounter Comment: Traumatic,penetratiung with fat layer exposed. (3) Venous insufficiency of both lower extremities Status: Chronic Current Visit: Yes Code(s): I87.2 - Venous insufficiency (chronic) (peripheral) (4) Ulcer of left lower extremity with fat layer exposed Status: Resolved Current Visit: No Code(s): L97.922 - Non-pressure chronic ulcer of unspecified part of left lower leg with fat layer exposed (5) Bilateral lower extremity edema Status: Chronic Current Visit: Yes Code(s): R60.0 - Localized edema Type of Wound Date of Service: 08/29/18 Chief Complaint: New left cabrera wound. Bilateral lower extremity edema. Right knee ulcer History of Wound: Ms. Ya is a 73-year-old who presents with a new left elbow and right knee wound after recent fall in her apartment. States that she tripped over her walker. Was seen in the emergency room status post fall and had sutures to her right knee and Steri-Strips to her left elbow. Right elbow wound had been previously improving but opened up again after fall. She had glue applied in the emergency room. She feels well otherwise denies chills, fever or feeling of unwell. Elbow wounds are healed. Right anterior knee ulcer had SNAP vac that came off a couple days ago. She has a new wound on right anterior lower leg. Progress of Wound: Status post recent hospital stay. No new concerns at this time. Bilateral lower extremity edema with significant improvement - Physical Exam Vital Signs Temp Pulse Resp BP 96.7 F L 59 L 22 H 184/76 H 08/29/18 12:38 08/29/18 12:38 08/29/18 12:38 08/29/18 12:38 General: Alert, Oriented x3, Cooperative, No apparent distress HEENT: Atraumatic, Normocephalic Oral: Moist Mucosa Neck: Supple Lungs: Normal air movement Extremities: No cyanosis, Edema Skin: Ulcer/ Wound Wound Measurements and Assessment WC - Nurse 1 - General Ulcer Measurement Start: 08/07/18 11:32 Freq: Status: Active Protocol: Activity Type Activity Date Activity User E-Sign Co-Sign Detail Recorded Client Recorded Date Recorded By Document 08/29/18 12:38 DL [id number] 08/29/18 12:43 DL 08/29/18 12:38 Wound Center Nurse 1 [Ulcer Assessment] #19 Left medial cabrera -Current Size (cm) - Length 1.1 -Current Size (cm) - Width 0.6 -Current Size (cm) - Depth 0.1 -Total Square Cm 0.66 -Photo Taken No -Exudate Amt None Present -Wound Margin Thickened -Granulation Amt None Present (0 %) -Necrosis Amt Large (67-100%) -Necrotic Tissue Type Eschar -Structure Exposed N/A -Texture (Char-wound Skin Appearance) Scarring -Moisture (Char-wound Skin Appearance No Abnormality ) -Color (Char-wound Skin Appearance) Hemosiderin Staining -Temperature (Char-wound Skin No Abnormality Appearance) (Pt Warm) -Tenderness on Palpation (Char-wound No Skin Appearance) -Ulcer Cleansing Rinsed/ Irrigated with Saline -Foul Odor after Cleansing No -Anesthetic Used 5% Lidocaine Gel [Edema Assessment] -Left Calf (cm) 29.7 -Left Ankle (cm) 25.2 - Nurse 2 - General Ulcer CM Notes Start: 08/07/18 11:32 Freq: Status: Active Protocol: Activity Type Activity Date Activity User E-Sign Co-Sign Detail Recorded Client Recorded Date Recorded By Document 08/29/18 12:54 MW [id number] 08/29/18 12:56 MW 08/29/18 12:54 Wound Center Nurse 2 [Procedure/Treatment] #19 Left medial cabrera -Time 12:54 -Correct Patient Yes -Correct Side, Site, Position Yes -Correct Procedure Yes -Procedure Performed Yes -Type of Procedure Debridement -Clinical Debridement Subcutaneous -Post Debridement Size (cm) - Length 0.1 -Post Debridement Size (cm) - Width 0.1 -Post Debridement Size (cm) - Depth 0.1 -Total Square Cm 0.01 -Wound/Ulcer Outcome Not Healed -Ulcer Cleansing Rinsed/ Irrigated with Saline -Foul Odor after Cleansing No -Bioengineered Tissue No -Bleeding Controlled with Pressure -Offloading No -Treatment Response Procedure Tolerated Well [See Physician Procedure note for Specifics] Pain Scale: 0-10 Numeric [Pain] -Is Patient Pain Free? Yes Musculoskeletal: No Muscle Wasting Neurological: Cranial nerves II-XII grossly intact Psych/Mental Status: Normal Affect Debridement Note Post-Debridement Measurements/Treatment WC - Nurse 2 - General Ulcer CM Notes Start: 08/07/18 11:32 Freq: Status: Active Protocol: Activity Type Activity Date Activity User E-Sign Co-Sign Detail Recorded Client Recorded Date Recorded By Document 08/07/18 11:39 MW [id number] 08/07/18 11:43 MW Document 08/15/18 12:53 MW [id number] 08/15/18 13:00 MW Document 08/29/18 12:54 MW [id number] 08/29/18 12:56 MW 08/07/18 08/15/18 08/29/18 11:39 12:53 12:54 Wound Center Nurse 2 #19 Left medial cabrera -Time 11:40 12:53 12:54 -Correct Patient Yes Yes Yes -Correct Side, Site, Position Yes Yes Yes -Correct Procedure Yes Yes Yes -Procedure Performed No Yes Yes -Type of Procedure Debridement Debridement -Clinical Debridement Subcutaneous Subcutaneous -Post Debridement Size (cm) - Length 6.0 0.1 -Post Debridement Size (cm) - Width 6.5 0.1 -Post Debridement Size (cm) - Depth 0.1 0.1 -Total Square Cm 39.00 0.01 -Wound/Ulcer Outcome Not Healed Not Healed Not Healed -Ulcer Cleansing Rinsed/ Rinsed/ Rinsed/ Irrigated with Irrigated with Irrigated with Saline Saline Saline -Foul Odor after Cleansing No No No -Bioengineered Tissue No No No -Bleeding Controlled with NA Pressure Pressure -Offloading No No No -Treatment Response Procedure Procedure Procedure Tolerated Well Tolerated Well Tolerated Well 18. R medial superior knee -Time 11:40 -Correct Patient Yes -Correct Side, Site, Position Yes -Correct Procedure Yes -Procedure Performed No -Post Debridement Size (cm) - Length 0 -Post Debridement Size (cm) - Width 0 -Post Debridement Size (cm) - Depth 0 -Total Square Cm 0 -Wound/Ulcer Outcome Healed- Epithelialized Pain Scale: 0-10 Numeric Is Patient Pain Free? Yes Yes Yes Wound debrided: Left cabrera Wound Grade/Stage: Stage 2 Type of Debridement: Selective debridement Anesthesia Used: 4% Lidocaine Solution Depth: Down to and including healthy tissue Percentage of wound debrided: 100 Instrument Used: 3mm curette Tissue Removed: Devitalized tissue Severity: Limited To Skin Breakdown Amount of bleeding with debridement: Mild Bleeding Controlled with: Pressure Patient tolerated procedure well Assessment/Plan Clinical Impression(s) from Imaging Studies Chest X-Ray 08/07/18 16:58 IMPRESSION: Small left lung base infiltrate. Electronically Signed: Ryan Rider, at 19:29 EDT Tel , Service support , Active Problems (Last Updated 04/10/18 @ 19:24 by Nicanor Hoyt DO) Venous insufficiency of both lower extremities (Chronic) Open wound of right knee (Chronic) Traumatic,penetratiung with fat layer exposed. Bilateral lower extremity edema (Chronic) Ulcer of left lower extremity with fat layer exposed (Chronic) Assessment: Venous insufficiency of both lower extremities. Wound of left lower extremity. Bilateral lower extremity edema. Ulcer of right lower extremity with fat layer exposed. Ulcer of right foot with fat layer exposed-healed Plan: Minimal area of ulceration left with significant improvement in bilateral lower extremity swelling. Debridement done as documented above, procedure was well-tolerated. Continue Xeroform with gauze over top. 3M wraps for edema management. Long-term compression management however discussed. She states that she has compression stockings at home, she was advised to bring it into the next visit. Optimal blood sugar control. Increased protein intake also recommended. She reports compliance now with her diuretic management. All her questions were answered and she was advised to call with any further questions or concerns. Follow-up in 1 week. This note was generated with [employer] software. It may contain incorrect words, spelling, and punctuation that were not noted in checking the note before signing.
== END 2018-09-04 23:59 ==
LOC: WC 12:15
PROVIDERS: Family Provider Family Medicine Geriatric Medicine; PCP Family Medicine Geriatric Medicine; Referring Provider Podiatrist; Visit Provider Internal Medicine
DX: E11.622 Type 2 diabetes mellitus with other skin ulcer (principal); E11.51 Type 2 diabetes mellitus with diabetic peripheral angiopathy without gangrene; R60.0 Localized edema; L97.922 Non-pressure chronic ulcer of unspecified part of left lower leg with fat layer exposed; L30.9 Dermatitis, unspecified
CPT/HCPCS: 11042; 11045; 29581; 36415; 71046; 80048; 85025; 87633; 97597; 99212; 99213; G0463

== ENCOUNTER → 2018-09-10 | Outpatient (CLI) | payer MEDICARE, SELFPAY ==
[2018-09-05 12:14] VITALS: BMI 38.5
== END | disposition home or self-care (01) ==
LOC: LABSPEC 12:02
PROVIDERS: Family Provider Family Medicine Geriatric Medicine; PCP Family Medicine Geriatric Medicine; Visit Provider Family Medicine Geriatric Medicine
DX: N39.0 Urinary tract infection, site not specified (principal)
CPT/HCPCS: 87086; 87088; 87186

== ENCOUNTER 2018-10-04 11:45 | Outpatient (RCR) | payer MEDICARE, SELFPAY ==
[2018-09-05 00:34] VITALS: BP 184/76; PULSE 59; RESP 22; TEMP 35.9; BMI 38.5
[2018-09-05 12:14] VITALS: BP 151/76; PULSE 54; RESP 16; TEMP 36.9; BMI 38.5
--- NOTE | 2018-09-05 16:51 | PCM.WC.PN ---
(1) Bilateral lower extremity edema Status: Chronic Code(s): R60.0 - Localized edema (2) Ulcer of left lower extremity with fat layer exposed Status: Chronic Code(s): L97.922 - Non-pressure chronic ulcer of unspecified part of left lower leg with fat layer exposed (3) Venous insufficiency of both lower extremities Status: Chronic Code(s): I87.2 - Venous insufficiency (chronic) (peripheral) Type of Wound Date of Service: 09/09/18 Chief Complaint: New left cabrera wound. Bilateral lower extremity edema. Right knee ulcer History of Wound: Ms. Ya is a 73-year-old who presents with a new left elbow and right knee wound after recent fall in her apartment. States that she tripped over her walker. Was seen in the emergency room status post fall and had sutures to her right knee and Steri-Strips to her left elbow. Right elbow wound had been previously improving but opened up again after fall. She had glue applied in the emergency room. She feels well otherwise denies chills, fever or feeling of unwell. Elbow wounds are healed. Right anterior knee ulcer had SNAP vac that came off a couple days ago. She has a new wound on right anterior lower leg. Progress of Wound: Healed. No new concerns. - Physical Exam Vital Signs Temp Pulse Resp BP 98.4 F 54 L 16 151/76 H 09/05/18 12:14 09/05/18 12:14 09/05/18 12:14 09/05/18 12:14 General: Alert, Oriented x3, Cooperative, No apparent distress HEENT: Atraumatic, Normocephalic Oral: Moist Mucosa Neck: Supple Lungs: Normal air movement Extremities: No cyanosis, Edema Wound Measurements and Assessment WC - Nurse 1 - General Ulcer Measurement Start: 09/05/18 12:14 Freq: Status: Active Protocol: Activity Type Activity Date Activity User E-Sign Co-Sign Detail Recorded Client Recorded Date Recorded By Document 09/05/18 12:14 SERG [id number] 09/05/18 12:15 SERG 09/05/18 12:14 Wound Center Nurse 1 [Ulcer Assessment] #19 Left medial cabrera -Combined with other wound No -Current Size (cm) - Length 0 -Current Size (cm) - Width 0 -Current Size (cm) - Depth 0 -Total Square Cm 0 -Photo Taken Yes -Epithelialization Large 67-100% -Tunneling No -Undermining/Tunneling No -Circular Undermining No [Edema Assessment] -Lower Limb Edema Present Yes -Right Calf (cm) 36.4 -Right Ankle (cm) 27.6 -Left Calf (cm) 40.3 -Left Ankle (cm) 26.5 HAZEL - Nurse 2 - General Ulcer CM Notes Start: 09/05/18 12:14 Freq: Status: Active Protocol: Activity Type Activity Date Activity User E-Sign Co-Sign Detail Recorded Client Recorded Date Recorded By Document 09/05/18 12:41 MW [id number] 09/05/18 12:42 MW 09/05/18 12:41 Wound Center Nurse 2 [Procedure/Treatment] #19 Left medial cabrera -Time 12:42 -Correct Patient Yes -Correct Side, Site, Position Yes -Correct Procedure Yes -Procedure Performed No -Post Debridement Size (cm) - Length 0 -Post Debridement Size (cm) - Width 0 -Post Debridement Size (cm) - Depth 0 -Total Square Cm 0 -Wound/Ulcer Outcome Healed- Epithelialized [See Physician Procedure note for Specifics] Pain Scale: 0-10 Numeric [Pain] -Is Patient Pain Free? Yes Musculoskeletal: No Muscle Wasting Neurological: Cranial nerves II-XII grossly intact Psych/Mental Status: Normal Affect Debridement Note Post-Debridement Measurements/Treatment HAZEL - Nurse 2 - General Ulcer CM Notes Start: 09/05/18 12:14 Freq: Status: Active Protocol: Activity Type Activity Date Activity User E-Sign Co-Sign Detail Recorded Client Recorded Date Recorded By Document 09/05/18 12:41 MW [id number] 09/05/18 12:42 MW 09/05/18 12:41 Wound Center Nurse 2 #19 Left medial cabrera -Time 12:42 -Correct Patient Yes -Correct Side, Site, Position Yes -Correct Procedure Yes -Procedure Performed No -Post Debridement Size (cm) - Length 0 -Post Debridement Size (cm) - Width 0 -Post Debridement Size (cm) - Depth 0 -Total Square Cm 0 -Wound/Ulcer Outcome Healed- Epithelialized Pain Scale: 0-10 Numeric Is Patient Pain Free? Yes No debridement was completed today Assessment/Plan Assessment: Venous insufficiency of both lower extremities. Wound of left lower extremity. Bilateral lower extremity edema. Ulcer of right lower extremity with fat layer exposed. Ulcer of right foot with fat layer exposed-healed Plan: Healed. Still however has bilateral lower extremity edema. Did bring in her compression stockings today. Compliance very strongly recommended. Also recommend elevating lower extremities when seated and in bed. Exercise as tolerated. Optimal Diabetes management. Her Questions were answered and she was advised to call with any further questions or concerns. Discharged from the wound clinic. This note was generated with [employer] video dictation software. It may contain incorrect words, spelling, and punctuation that were not noted in checking the note before signing.
[2018-10-02 10:55] VITALS: BP 143/66; PULSE 61; RESP 18; TEMP 36.3; BMI 38.5
--- NOTE | 2018-10-02 11:20 | HP.PCM_ITS ---
(1) Bilateral lower extremity edema Status: Chronic Current Visit: Yes Code(s): R60.0 - Localized edema (2) Ulcer of left lower extremity with fat layer exposed Status: Chronic Current Visit: Yes Code(s): L97.922 - Non-pressure chronic ulcer of unspecified part of left lower leg with fat layer exposed (3) Venous insufficiency of both lower extremities Status: Chronic Current Visit: Yes Code(s): I87.2 - Venous insufficiency (chronic) (peripheral) (4) Wound of left lower extremity Status: Acute Current Visit: Yes Qualifiers: Encounter type: initial encounter Qualified Code(s): S81.802A - Unspecified open wound, left lower leg, initial encounter Code(s): S81.802A - Unspecified open wound, left lower leg, initial encounter Comment: Traumatic, penetrating with fat layer exposed. History of Present Illness Date of Service: 10/02/18 Chief Complaint: Left lower extremity wond and ulcer. History of Wound: Ms. Ya is a 73-year-old who presents with a new left lower extremity medial wound and lateral ulcer. Wounbd was sustained after she hit her walker. Significant bleeding was noted per patient. She has applied guaze over top. She is unsure of how she sutained her left lateral ulcer. She reports compliance with her compression stockings but still has signifcnat bilaterl lower extremity swelling/ edema. She feels well otherwise and denies chills, fever, nausea or vomiting. Past Medical History Past Medical History: Chronic Problems (Last Updated 04/10/18 @ 19:24 by Nicanor Hoyt DO) Venous insufficiency of both lower extremities (Chronic) Open wound of right knee (Chronic) Traumatic,penetratiung with fat layer exposed. CAD (coronary artery disease) (Chronic) Diabetes (Chronic) Bilateral lower extremity edema (Chronic) Diastolic CHF (Chronic) Cognitive impairment (Chronic) patient is confused at times Iron deficiency anemia (Chronic) etiology unknown Ulcer of right lower extremity with fat layer exposed (Chronic) Ulcer of right foot with fat layer exposed (Chronic) Ulcer of left lower extremity with fat layer exposed (Chronic) PVD (peripheral vascular disease) (Chronic) Controlled diabetes mellitus (Chronic) Edema, lower extremity (Chronic) Presence of stent in coronary artery (Chronic) PTCA/stent to CX; PTCA/Stent PTCA/stent to prox RCA 05/06; PTCA/LILY in mid to distal RCA 08/29/12 Atherosclerotic heart disease of [place] coronary artery without angina pectoris (Chronic) PTCA/stent to CX; PTCA/Stent PTCA/stent to prox RCA 05/06; PTCA/LILY in mid to distal RCA 08/29/12; CABG x2 ARREGUIN tp LAD and SVG to OM2 01/02/11 S/P CABG (coronary artery bypass graft) (Chronic ~01/02/11) CABG x2 ARREGUIN tp LAD and SVG to OM2 01/02/11 Paroxysmal atrial fibrillation (Chronic) Hyperlipidemia (Chronic) Hypertension (Chronic) Surgical History: angioplasty, appendectomy, cholecystectomy, coronary bypass surgery, hysterectomy, tonsillectomy, - - R ankle surgery with hardware. placement of stents (cardiac or lower extremity. patient is unsure). excision upper lip carcinoma. Incision and drainage and excisional debridement infected traumatic open hematoma wound right anterior leg (90 cm2) and incision and drainage and excisional debridement infected traumatic open hematoma wound left anterior leg (72 cm2) - 12/29/14. Allergies/Adverse Reactions: Allergies codeine Allergy (Unknown, Verified 08/19/18 14:16) Hives ciprofloxacin [From Cipro] Allergy (Verified 08/19/18 14:16) Hives ciprofloxacin HCl [From Cipro] Allergy (Verified 08/19/18 14:16) Hives Latex, Natural Rubber Allergy (Verified 08/19/18 14:16) Rash Penicillins [PCN] Allergy (Verified 08/19/18 14:16) Hives adhesive tape Adverse Reaction (Verified 08/19/18 14:16) Rash Home Medications: Ambulatory Orders Medication Instructions Recorded Amiodarone HCl 200 mg PO DAILY 04/09/18 Duloxetine HCl 60 mg PO DAILY 04/09/18 Magnesium Oxide [Mag-Ox 400] 400 mg PO BID 04/09/18 Metoprolol Tartrate [Lopressor 50 mg PO BID 04/09/18 (beta man)] Pantoprazole Sodium [Protonix] 40 mg PO DAILY 04/09/18 Rivaroxaban [Xarelto] 15 mg PO DAILY 04/09/18 Budesonide Inhaler 180 mcg 1 puff INHALATION BID #1 inhaler 04/17/18 [Pulmicort Inhaler 180 mcg] Docusate Sodium 100 mg PO DAILY PRN PRN 05/22/18 Ergocalciferol (Vitamin D2) 50,000 unit PO QWEEK 05/22/18 [Vitamin D2] Metformin HCl [Metformin HCl ER] 500 mg PO DAILY 05/22/18 Donepezil HCl 5 mg PO DAILY 08/19/18 Potassium Chloride [Klor-Con M20] 20 meq PO BID 08/19/18 traMADol [Ultram] 50 mg PO BID PRN PRN 08/19/18 Acetaminophen [Tylenol Tablet] 650 mg PO Q6H PRN PRN tab 08/23/18 Furosemide [Lasix] 60 mg PO DAILY #1 tab 08/23/18 ferrous sulfate 325 mg (65 mg 325 mg PO DAILY 09/25/18 iron) tablet,delayed release gabapentin 300 mg capsule 600 mg PO BID cap 09/25/18 - Family History Maternal Family History: Family History (Last Reviewed 04/09/18 @ 14:40 by Douglas Bowman DO) Father Heart disease Mother Hypertension Cancer Brother Diabetes Hypertension Heart Disease, Hypertension Paternal Family History: Family History (Last Reviewed 04/09/18 @ 14:40 by Douglas Bowman DO) Father Heart disease Mother Hypertension Cancer Brother Diabetes Hypertension Heart Disease, Hypertension, - - skin cancer. Sibling Family History: Family History (Last Reviewed 04/09/18 @ 14:40 by Douglas Bowman DO) Father Heart disease Mother Hypertension Cancer Brother Diabetes Hypertension Diabetes Smoking Status: Former smoker - Physical Exam Vital Signs Temp Pulse Resp BP 97.4 F L 61 18 143/66 H 10/02/18 10:55 10/02/18 10:55 10/02/18 10:55 10/02/18 10:55 General: Alert, Oriented x3, Cooperative, No apparent distress HEENT: Atraumatic, Normocephalic Oral: Moist Mucosa Neck: Supple Lungs: Normal air movement Abdomen: Non Tender, Obese Extremities: No cyanosis, Edema Skin: Ulcer/ Wound Wound Measurements and Assessment WC - Nurse 1 - General Ulcer Measurement Start: 09/05/18 12:14 Freq: Status: Active Protocol: Activity Type Activity Date Activity User E-Sign Co-Sign Detail Recorded Client Recorded Date Recorded By Document 10/02/18 10:55 RB [id number] 10/02/18 11:04 RB 10/02/18 10:55 Wound Center Nurse 1 [Ulcer Assessment] 21. LLE posterior -Combined with other wound No -Current Size (cm) - Length 2.2 -Current Size (cm) - Width 0.3 -Current Size (cm) - Depth 0.3 -Total Square Cm 0.66 -Photo Taken Yes -Tunneling No -Undermining/Tunneling No -Circular Undermining No -Exudate Amt Large -Exudate Type Serosanguineous -Wound Margin Flat & Intact -Granulation Amt Medium (34-66%) -Granulation Quality [place] -Slough/Fibrin Yes -Necrosis Amt Small (1-33%) -Necrotic Tissue Type Adherent Slough -Structure Exposed N/A -Texture (Char-wound Skin Appearance) Assessed -Moisture (Char-wound Skin Appearance Assessed ) -Color (Char-wound Skin Appearance) Assessed -Temperature (Char-wound Skin No Abnormality Appearance) (Pt Warm) -Tenderness on Palpation (Char-wound No Skin Appearance) -Ulcer Cleansing Rinsed/ Irrigated with Saline -Foul Odor after Cleansing No -Anesthetic Used 4% Lidocaine Solution 20. LLE lateral -Combined with other wound No -Current Size (cm) - Length 1.6 -Current Size (cm) - Width 1.5 -Current Size (cm) - Depth 0.1 -Total Square Cm 2.40 -Photo Taken Yes -Tunneling No -Undermining/Tunneling No -Circular Undermining No -Exudate Amt Large -Exudate Type Serosanguineous -Wound Margin Flat & Intact -Granulation Amt Large (67-100%) -Granulation Quality [place] -Slough/Fibrin Yes -Necrosis Amt Small (1-33%) -Necrotic Tissue Type Adherent Slough -Structure Exposed N/A -Texture (Char-wound Skin Appearance) Assessed -Moisture (Char-wound Skin Appearance Assessed ) -Color (Char-wound Skin Appearance) Assessed -Temperature (Char-wound Skin No Abnormality Appearance) (Pt Warm) -Tenderness on Palpation (Char-wound No Skin Appearance) -Ulcer Cleansing Rinsed/ Irrigated with Saline -Foul Odor after Cleansing No -Anesthetic Used 4% Lidocaine Solution [Edema Assessment] -Lower Limb Edema Present Yes -Right Calf (cm) 46.5 -Right Ankle (cm) 31 -Left Calf (cm) 32 -Left Ankle (cm) 26.5 WC - Nurse 2 - General Ulcer CM Notes Start: 09/05/18 12:14 Freq: Status: Active Protocol: Activity Type Activity Date Activity User E-Sign Co-Sign Detail Recorded Client Recorded Date Recorded By Document 10/02/18 11:10 MW [id number] 10/02/18 11:17 MW 10/02/18 11:10 Wound Center Nurse 2 [Procedure/Treatment] 21. LLE posterior -Time 11:10 -Correct Patient Yes -Correct Side, Site, Position Yes -Correct Procedure Yes -Procedure Performed Yes -Type of Procedure Debridement -Clinical Debridement Subcutaneous -Post Debridement Size (cm) - Length 2.0 -Post Debridement Size (cm) - Width 0.3 -Post Debridement Size (cm) - Depth 0.3 -Total Square Cm 0.60 -Wound/Ulcer Outcome Not Healed -Ulcer Cleansing Rinsed/ Irrigated with Saline -Foul Odor after Cleansing No -Bioengineered Tissue No -Bleeding Controlled with Pressure -Offloading No -Treatment Response Procedure Tolerated Well 20. LLE lateral -Time 11:10 -Correct Patient Yes -Correct Side, Site, Position Yes -Correct Procedure Yes -Procedure Performed Yes -Type of Procedure Debridement -Clinical Debridement Subcutaneous -Post Debridement Size (cm) - Length 1.7 -Post Debridement Size (cm) - Width 2.0 -Post Debridement Size (cm) - Depth 0.1 -Total Square Cm 3.40 -Wound/Ulcer Outcome Not Healed -Ulcer Cleansing Rinsed/ Irrigated with Saline -Foul Odor after Cleansing No -Bioengineered Tissue No -Bleeding Controlled with Pressure -Offloading No -Treatment Response Procedure Tolerated Well [See Physician Procedure note for Specifics] Pain Scale: 0-10 Numeric [Pain] -Is Patient Pain Free? Yes Musculoskeletal: No Muscle Wasting Neurological: Cranial nerves II-XII grossly intact Psych/Mental Status: Normal Affect Debridement Note Post-Debridement Measurements/Treatment WC - Nurse 2 - General Ulcer CM Notes Start: 09/05/18 12:14 Freq: Status: Active Protocol: Activity Type Activity Date Activity User E-Sign Co-Sign Detail Recorded Client Recorded Date Recorded By Document 09/05/18 12:41 MW [id number] 09/05/18 12:42 MW Document 10/02/18 11:10 MW [id number] 10/02/18 11:17 MW 09/05/18 10/02/18 12:41 11:10 Wound Center Nurse 2 21. NATALI posterior -Time 11:10 -Correct Patient Yes -Correct Side, Site, Position Yes -Correct Procedure Yes -Procedure Performed Yes -Type of Procedure Debridement -Clinical Debridement Subcutaneous -Post Debridement Size (cm) - Length 2.0 -Post Debridement Size (cm) - Width 0.3 -Post Debridement Size (cm) - Depth 0.3 -Total Square Cm 0.60 -Wound/Ulcer Outcome Not Healed -Ulcer Cleansing Rinsed/ Irrigated with Saline -Foul Odor after Cleansing No -Bioengineered Tissue No -Bleeding Controlled with Pressure -Offloading No -Treatment Response Procedure Tolerated Well 20. LLE lateral -Time 11:10 -Correct Patient Yes -Correct Side, Site, Position Yes -Correct Procedure Yes -Procedure Performed Yes -Type of Procedure Debridement -Clinical Debridement Subcutaneous -Post Debridement Size (cm) - Length 1.7 -Post Debridement Size (cm) - Width 2.0 -Post Debridement Size (cm) - Depth 0.1 -Total Square Cm 3.40 -Wound/Ulcer Outcome Not Healed -Ulcer Cleansing Rinsed/ Irrigated with Saline -Foul Odor after Cleansing No -Bioengineered Tissue No -Bleeding Controlled with Pressure -Offloading No -Treatment Response Procedure Tolerated Well #19 Left medial cabrera -Time 12:42 -Correct Patient Yes -Correct Side, Site, Position Yes -Correct Procedure Yes -Procedure Performed No -Post Debridement Size (cm) - Length 0 -Post Debridement Size (cm) - Width 0 -Post Debridement Size (cm) - Depth 0 -Total Square Cm 0 -Wound/Ulcer Outcome Healed- Epithelialized Pain Scale: 0-10 Numeric Is Patient Pain Free? Yes Yes Wound debrided: Left medial leg Type of Debridement: Excisional debridement Anesthesia Used: 4% Lidocaine Solution Depth: Down to and including healthy tissue, in the subcutaneous layer Percentage of wound debrided: 100 Instrument Used: 3mm curette Tissue Removed: Slough and devitalized tissue Severity: Fat Layer Exposed Amount of bleeding with debridement: Mild Bleeding Controlled with: Pressure Patient tolerated procedure well - Additional Wound Wound debrided: Left leg ( Lateral ) Type of Debridement: Excisional debridement Anesthesia Used: 4% Lidocaine Solution Depth: Down to and including healthy tissue, in the subcutaneous layer Percentage of wound debrided: 100 Instrument Used: 3mm curette Tissue Removed: Slough and devitalized tissue Severity: Fat Layer Exposed Amount of bleeding with debridement: Mild Bleeding Controlled with: Pressure Patient tolerated procedure: Patient tolerated procedure well Assessment/Plan Active Problems (Last Updated 04/10/18 @ 19:24 by Nicanor Hoyt DO) Venous insufficiency of both lower extremities (Chronic) Wound of left lower extremity (Acute) Traumatic, penetrating with fat layer exposed. Bilateral lower extremity edema (Chronic) Ulcer of left lower extremity with fat layer exposed (Chronic) Assessment: Same as above. Plan: New left traumatic, penetrating wound and left later ulcer. Debridement done as documented above, procedure was well tolerated. Significant drainage from the medial wound. Aquacel extra daily with gauze and ABD over top. 3M wrap to bothe lower extremitoies for edema management. Follow up on sunday for nurse visit and in 1 week with me. Exercise as tolerated, avoid idle standing and elevate lower extremities when seated and in bed. Increased protein intake also recommended. This note was generated with [employer] dictation software. It may contain incorrect words, spelling, and punctuation that were not noted in checking the note before signing.
[2018-10-04 12:36] VITALS: BP 197/100; PULSE 61; RESP 18; TEMP 36.8; BMI 38.5
== END 2018-10-05 23:59 ==
LOC: WC 11:45
PROVIDERS: Family Provider Family Medicine Geriatric Medicine; PCP Family Medicine Geriatric Medicine; Referring Provider Podiatrist; Visit Provider Internal Medicine
DX: E11.622 Type 2 diabetes mellitus with other skin ulcer (principal); I87.2 Venous insufficiency (chronic) (peripheral); R60.0 Localized edema; E11.51 Type 2 diabetes mellitus with diabetic peripheral angiopathy without gangrene; L97.822 Non-pressure chronic ulcer of other part of left lower leg with fat layer exposed; E11.22 Type 2 diabetes mellitus with diabetic chronic kidney disease; N17.9 Acute kidney failure, unspecified; G35 Multiple sclerosis; I50.32 Chronic diastolic (congestive) heart failure; I11.0 Hypertensive heart disease with heart failure; I48.0 Paroxysmal atrial fibrillation; E78.5 Hyperlipidemia, unspecified; Z95.1 Presence of aortocoronary bypass graft; Z79.899 Other long term (current) drug therapy; Z79.01 Long term (current) use of anticoagulants; Z87.891 Personal history of nicotine dependence
CPT/HCPCS: 11042; 29581; 99213; G0463

== ENCOUNTER 2018-10-24 11:15 | Outpatient (RCR) | payer MEDICARE, SELFPAY ==
[2018-10-06 00:29] VITALS: BP 197/100; PULSE 61; RESP 18; TEMP 36.8
[2018-10-10 12:47] VITALS: BP 184/88; PULSE 62; RESP 16; TEMP 34.3; BMI 38.5
--- NOTE | 2018-10-10 13:49 | PN.PCM_ITS ---
(1) Wound of left lower extremity Status: Acute Current Visit: Yes Qualifiers: Code(s): S81.802A - Unspecified open wound, left lower leg, initial encounter Comment: Traumatic, penetrating with fat layer exposed. (2) Bilateral lower extremity edema Status: Chronic Current Visit: Yes Code(s): R60.0 - Localized edema (3) Type 2 diabetes mellitus Status: Chronic Current Visit: Yes Code(s): E11.9 - Type 2 diabetes mellitus without complications (4) Venous insufficiency of both lower extremities Status: Chronic Current Visit: Yes Code(s): I87.2 - Venous insufficiency (chronic) (peripheral) Type of Wound Date of Service: 10/10/18 Chief Complaint: Left lower extremity wond and ulcer. History of Wound: Ms. Ya is a 73-year-old who presents with a new left lower extremity medial wound and lateral ulcer. Wounbd was sustained after she hit her walker. Significant bleeding was noted per patient. She has applied guaze over top. She is unsure of how she sutained her left lateral ulcer. She reports compliance with her compression stockings but still has signifcnat bilaterl lowe r extremity swelling/ edema. She feels well otherwise and denies chills, fever, nausea or vomiting. Progress of Wound: Improving. No new concerns at this time. - Physical Exam Vital Signs Temp Pulse Resp BP 93.7 F L 62 16 184/88 H 10/10/18 12:47 10/10/18 12:47 10/10/18 12:47 10/10/18 12:47 General: Alert, Oriented x3, Cooperative, No apparent distress HEENT: Atraumatic Oral: Moist Mucosa Neck: Supple Lungs: Normal air movement Abdomen: Non Tender, Obese Extremities: No cyanosis Skin: Ulcer/ Wound Wound Measurements and Assessment WC - Nurse 1 - General Ulcer Measurement Start: 10/10/18 11:45 Freq: Status: Active Protocol: Activity Type Activity Date Activity User E-Sign Co-Sign Detail Recorded Client Recorded Date Recorded By Document 10/10/18 12:47 BS [id number] 10/10/18 12:50 BS 10/10/18 12:47 Wound Center Nurse 1 [Ulcer Assessment] 21. LLE posterior -Combined with other wound No -Current Size (cm) - Length 2.5 -Current Size (cm) - Width 1 -Current Size (cm) - Depth 0.1 -Total Square Cm 2.5 -Tunneling No -Ulcer Cleansing Rinsed/ Irrigated with Saline -Foul Odor after Cleansing No -Anesthetic Used 5% Lidocaine Gel 20. LLE lateral -Combined with other wound No -Current Size (cm) - Length 1.4 -Current Size (cm) - Width 1.5 -Current Size (cm) - Depth 0.1 -Total Square Cm 2.10 -Photo Taken No -Ulcer Cleansing Rinsed/ Irrigated with Saline -Foul Odor after Cleansing No -Anesthetic Used 5% Lidocaine Gel WC - Nurse 2 - General Ulcer CM Notes Start: 10/10/18 11:45 Freq: Status: Active Protocol: Activity Type Activity Date Activity User E-Sign Co-Sign Detail Recorded Client Recorded Date Recorded By Document 10/10/18 13:36 MW [id number] 10/10/18 13:38 MW 10/10/18 13:36 Wound Center Nurse 2 [Procedure/Treatment] 21. LLE posterior -Time 13:37 -Correct Patient Yes -Correct Side, Site, Position Yes -Correct Procedure Yes -Procedure Performed Yes -Type of Procedure Debridement -Clinical Debridement Subcutaneous -Post Debridement Size (cm) - Length 1.5 -Post Debridement Size (cm) - Width 0.5 -Post Debridement Size (cm) - Depth 0.3 -Total Square Cm 0.75 -Wound/Ulcer Outcome Not Healed -Ulcer Cleansing Rinsed/ Irrigated with Saline -Foul Odor after Cleansing No -Bioengineered Tissue No -Bleeding Controlled with Pressure -Offloading No -Treatment Response Procedure Tolerated Well 20. LLE lateral -Time 13:37 -Correct Patient Yes -Correct Side, Site, Position Yes -Correct Procedure Yes -Procedure Performed Yes -Type of Procedure Debridement -Clinical Debridement Subcutaneous -Post Debridement Size (cm) - Length 1.0 -Post Debridement Size (cm) - Width 0.8 -Post Debridement Size (cm) - Depth 0.1 -Total Square Cm 0.80 -Wound/Ulcer Outcome Not Healed -Ulcer Cleansing Rinsed/ Irrigated with Saline -Foul Odor after Cleansing No -Bioengineered Tissue No -Bleeding Controlled with Pressure -Offloading No -Treatment Response Procedure Tolerated Well [See Physician Procedure note for Specifics] Pain Scale: 0-10 Numeric [Pain] -Is Patient Pain Free? Yes Musculoskeletal: No Muscle Wasting Neurological: Cranial nerves II-XII grossly intact Psych/Mental Status: Normal Affect Debridement Note Post-Debridement Measurements/Treatment WC - Nurse 2 - General Ulcer CM Notes Start: 10/10/18 11:45 Freq: Status: Active Protocol: Activity Type Activity Date Activity User E-Sign Co-Sign Detail Recorded Client Recorded Date Recorded By Document 10/10/18 13:36 MW [id number] 10/10/18 13:38 MW 10/10/18 13:36 Wound Center Nurse 2 21. LLE posterior -Time 13:37 -Correct Patient Yes -Correct Side, Site, Position Yes -Correct Procedure Yes -Procedure Performed Yes -Type of Procedure Debridement -Clinical Debridement Subcutaneous -Post Debridement Size (cm) - Length 1.5 -Post Debridement Size (cm) - Width 0.5 -Post Debridement Size (cm) - Depth 0.3 -Total Square Cm 0.75 -Wound/Ulcer Outcome Not Healed -Ulcer Cleansing Rinsed/ Irrigated with Saline -Foul Odor after Cleansing No -Bioengineered Tissue No -Bleeding Controlled with Pressure -Offloading No -Treatment Response Procedure Tolerated Well 20. LLE lateral -Time 13:37 -Correct Patient Yes -Correct Side, Site, Position Yes -Correct Procedure Yes -Procedure Performed Yes -Type of Procedure Debridement -Clinical Debridement Subcutaneous -Post Debridement Size (cm) - Length 1.0 -Post Debridement Size (cm) - Width 0.8 -Post Debridement Size (cm) - Depth 0.1 -Total Square Cm 0.80 -Wound/Ulcer Outcome Not Healed -Ulcer Cleansing Rinsed/ Irrigated with Saline -Foul Odor after Cleansing No -Bioengineered Tissue No -Bleeding Controlled with Pressure -Offloading No -Treatment Response Procedure Tolerated Well Pain Scale: 0-10 Numeric Is Patient Pain Free? Yes Wound debrided: Left lower extremity ( Medial Type of Debridement: Excisional debridement Anesthesia Used: 4% Lidocaine Solution Depth: Down to and including healthy tissue, in the subcutaneous layer Percentage of wound debrided: 100 Instrument Used: 3mm curette Tissue Removed: Slough and devitalized tissue Severity: Fat Layer Exposed Amount of bleeding with debridement: Mild Bleeding Controlled with: Pressure Patient tolerated procedure well - Additional Wound Wound debrided: Left lower extremity ( lateral ) Type of Debridement: Excisional debridement Anesthesia Used: 4% Lidocaine Solution Depth: Down to and including healthy tissue, in the subcutaneous layer Percentage of wound debrided: 100 Instrument Used: 3mm curette Tissue Removed: Slough and devitalized tissue Severity: Fat Layer Exposed Amount of bleeding with debridement: Mild Bleeding Controlled with: Pressure Patient tolerated procedure: Patient tolerated procedure well Assessment/Plan Active Problems (Last Updated 10/04/18 @ 13:43 by Lisa Hutton) Type 2 diabetes mellitus (Chronic) Venous insufficiency of both lower extremities (Chronic) Wound of left lower extremity (Acute) Traumatic, penetrating with fat layer exposed. Bilateral lower extremity edema (Chronic) Assessment: Same as above. Plan: Improving. No new cocnerns at this time. Debridement done as documented above, procedure was well tolerated. Drainage still present but improved compared to prior. Aquacel extra with gauze and ABD over top. 3M wrap to both lower extremitoies for edema management. Follow up on Sunday for nurse visit and in 1 week with me. Exercise as tolerated, avoid idle standing and elevate lower extremities when seated and in bed. Increased protein intake also recommended. This note was generated with [employer] dictation software. It may contain incorrect words, spelling, and punctuation that were not noted in checking the note before signing.
[2018-10-14 14:58] VITALS: BMI 38.5
[2018-10-17 11:27] VITALS: BP 166/88; PULSE 60; RESP 18; TEMP 36.6; BMI 38.5
--- NOTE | 2018-10-17 12:02 | PN.PCM_ITS ---
(1) Wound of left lower extremity Status: Acute Current Visit: Yes Qualifiers: Code(s): S81.802A - Unspecified open wound, left lower leg, initial encounter Comment: Traumatic, penetrating with fat layer exposed. (2) Bilateral lower extremity edema Status: Chronic Current Visit: Yes Code(s): R60.0 - Localized edema (3) Type 2 diabetes mellitus Status: Chronic Current Visit: Yes Code(s): E11.9 - Type 2 diabetes mellitus without complications (4) Venous insufficiency of both lower extremities Status: Chronic Current Visit: Yes Code(s): I87.2 - Venous insufficiency (chronic) (peripheral) Type of Wound Date of Service: 10/17/18 Chief Complaint: Left lower extremity wond and ulcer. History of Wound: Ms. Ya is a 73-year-old who presents with a new left lower extremity medial wound and lateral ulcer. Wounbd was sustained after she hit her walker. Significant bleeding was noted per patient. She has applied guaze over top. She is unsure of how she sutained her left lateral ulcer. She reports compliance with her compression stockings but still has signifcnat bilaterl lowe r extremity swelling/ edema. She feels well otherwise and denies chills, fever, nausea or vomiting. Progress of Wound: Improving edema. No new concerns at this time. - Physical Exam Vital Signs Temp Pulse Resp BP 98 F 60 18 166/88 H 10/17/18 11:27 10/17/18 11:27 10/17/18 11:27 10/17/18 11:27 General: Alert, Oriented x3, Cooperative, No apparent distress HEENT: Atraumatic, Normocephalic Oral: Moist Mucosa Neck: Supple Lungs: Normal air movement Extremities: No cyanosis, Edema Skin: Ulcer/ Wound Wound Measurements and Assessment WC - Nurse 1 - General Ulcer Measurement Start: 10/10/18 11:45 Freq: Status: Active Protocol: Activity Type Activity Date Activity User E-Sign Co-Sign Detail Recorded Client Recorded Date Recorded By Document 10/14/18 14:58 JF [id number] 10/14/18 14:59 JF Document 10/17/18 11:27 RB [id number] 10/17/18 11:39 RB 10/14/18 10/17/18 14:58 11:27 [Ulcer Assessment] 21. LLE posterior -Combined with other wound No -Current Size (cm) - Length 1.5 -Current Size (cm) - Width 0.5 -Current Size (cm) - Depth 0.3 -Total Square Cm 0.75 -Tunneling No -Undermining/Tunneling No -Circular Undermining No -Exudate Amt Small -Exudate Type Serosanguineous -Wound Margin Thickened & Rolled Under -Granulation Amt Large (67-100%) -Granulation Quality [place] -Slough/Fibrin Yes -Necrosis Amt Small (1-33%) -Necrotic Tissue Type Adherent Slough -Structure Exposed N/A -Texture (Char-wound Skin Appearance) Assessed -Moisture (Char-wound Skin Appearance Assessed ) -Color (Char-wound Skin Appearance) Assessed -Temperature (Char-wound Skin No Abnormality Appearance) (Pt Warm) -Tenderness on Palpation (Char-wound No Skin Appearance) -Ulcer Cleansing Wound Cleanser -Foul Odor after Cleansing No -Anesthetic Used 5% Lidocaine Gel 20. LLE lateral -Combined with other wound No -Current Size (cm) - Length 0.5 -Current Size (cm) - Width 0.4 -Current Size (cm) - Depth 0.1 -Total Square Cm 0.20 -Tunneling No -Undermining/Tunneling No -Circular Undermining No -Exudate Amt Small -Exudate Type Serosanguineous -Wound Margin Flat & Intact -Granulation Amt Large (67-100%) -Granulation Quality [place] -Slough/Fibrin Yes -Necrosis Amt Small (1-33%) -Necrotic Tissue Type Adherent Slough -Structure Exposed N/A -Texture (Char-wound Skin Appearance) Assessed -Moisture (Char-wound Skin Appearance Assessed ) -Color (Char-wound Skin Appearance) Assessed -Temperature (Char-wound Skin No Abnormality Appearance) (Pt Warm) -Tenderness on Palpation (Char-wound No Skin Appearance) -Ulcer Cleansing Wound Cleanser -Foul Odor after Cleansing No -Anesthetic Used 5% Lidocaine Gel Wound Center Nurse 1 [Edema Assessment] -Lower Limb Edema Present Yes Yes -Right Calf (cm) 32.2 32.5 -Right Ankle (cm) 26.6 26.4 -Left Calf (cm) 31.5 33.5 -Left Ankle (cm) 24.7 24.5 WC - Nurse 2 - General Ulcer CM Notes Start: 10/10/18 11:45 Freq: Status: Active Protocol: Activity Type Activity Date Activity User E-Sign Co-Sign Detail Recorded Client Recorded Date Recorded By Document 10/17/18 11:53 MW [id number] 10/17/18 11:57 MW 10/17/18 11:53 Wound Center Nurse 2 [Procedure/Treatment] 21. LLE posterior -Time 11:53 -Correct Patient Yes -Correct Side, Site, Position Yes -Correct Procedure Yes -Procedure Performed Yes -Type of Procedure Debridement -Clinical Debridement Subcutaneous -Post Debridement Size (cm) - Length 1.5 -Post Debridement Size (cm) - Width 0.5 -Post Debridement Size (cm) - Depth 0.3 -Total Square Cm 0.75 -Wound/Ulcer Outcome Not Healed -Ulcer Cleansing Rinsed/ Irrigated with Saline -Foul Odor after Cleansing No -Bioengineered Tissue No -Bleeding Controlled with Pressure -Offloading No -Treatment Response Procedure Tolerated Well 20. LLE lateral -Time 11:53 -Correct Patient Yes -Correct Side, Site, Position Yes -Correct Procedure Yes -Procedure Performed Yes -Type of Procedure Debridement -Clinical Debridement Subcutaneous -Post Debridement Size (cm) - Length 0.3 -Post Debridement Size (cm) - Width 0.4 -Post Debridement Size (cm) - Depth 0.1 -Total Square Cm 0.12 -Wound/Ulcer Outcome Not Healed -Ulcer Cleansing Rinsed/ Irrigated with Saline -Foul Odor after Cleansing No -Bioengineered Tissue No -Bleeding Controlled with Pressure -Offloading No -Treatment Response Procedure Tolerated Well [See Physician Procedure note for Specifics] Pain Scale: 0-10 Numeric [Pain] -Is Patient Pain Free? Yes Musculoskeletal: No Muscle Wasting Neurological: Cranial nerves II-XII grossly intact Psych/Mental Status: Normal Affect Debridement Note Post-Debridement Measurements/Treatment WC - Nurse 2 - General Ulcer CM Notes Start: 10/10/18 11:45 Freq: Status: Active Protocol: Activity Type Activity Date Activity User E-Sign Co-Sign Detail Recorded Client Recorded Date Recorded By Document 10/10/18 13:36 MW [id number] 10/10/18 13:38 MW Document 10/17/18 11:53 MW [id number] 10/17/18 11:57 MW 10/10/18 10/17/18 13:36 11:53 Wound Center Nurse [address] [facility] posterior -Time 13:37 11:53 -Correct Patient Yes Yes -Correct Side, Site, Position Yes Yes -Correct Procedure Yes Yes -Procedure Performed Yes Yes -Type of Procedure Debridement Debridement -Clinical Debridement Subcutaneous Subcutaneous -Post Debridement Size (cm) - Length 1.5 1.5 -Post Debridement Size (cm) - Width 0.5 0.5 -Post Debridement Size (cm) - Depth 0.3 0.3 -Total Square Cm 0.75 0.75 -Wound/Ulcer Outcome Not Healed Not Healed -Ulcer Cleansing Rinsed/ Rinsed/ Irrigated with Irrigated with Saline Saline -Foul Odor after Cleansing No No -Bioengineered Tissue No No -Bleeding Controlled with Pressure Pressure -Offloading No No -Treatment Response Procedure Procedure Tolerated Well Tolerated Well 20. [facility] lateral -Time 13:37 11:53 -Correct Patient Yes Yes -Correct Side, Site, Position Yes Yes -Correct Procedure Yes Yes -Procedure Performed Yes Yes -Type of Procedure Debridement Debridement -Clinical Debridement Subcutaneous Subcutaneous -Post Debridement Size (cm) - Length 1.0 0.3 -Post Debridement Size (cm) - Width 0.8 0.4 -Post Debridement Size (cm) - Depth 0.1 0.1 -Total Square Cm 0.80 0.12 -Wound/Ulcer Outcome Not Healed Not Healed -Ulcer Cleansing Rinsed/ Rinsed/ Irrigated with Irrigated with Saline Saline -Foul Odor after Cleansing No No -Bioengineered Tissue No No -Bleeding Controlled with Pressure Pressure -Offloading No No -Treatment Response Procedure Procedure Tolerated Well Tolerated Well Pain Scale: 0-10 Numeric Is Patient Pain Free? Yes Yes Wound debrided: Left leg ( Posterior medial ) Type of Debridement: Excisional debridement Anesthesia Used: 4% Lidocaine Solution Depth: Down to and including healthy tissue, in the subcutaneous layer Percentage of wound debrided: 100 Instrument Used: 3mm curette Tissue Removed: Slough and devitalized tissue Severity: Fat Layer Exposed Amount of bleeding with debridement: Mild Bleeding Controlled with: Pressure Patient tolerated procedure well - Additional Wound Wound debrided: Left leg ( lateral ) Type of Debridement: Excisional debridement Anesthesia Used: 4% Lidocaine Solution Depth: Down to and including healthy tissue, in the subcutaneous layer Percentage of wound debrided: 100 Instrument Used: 3mm curette Tissue Removed: Slough and devitalized tissue Severity: Fat Layer Exposed Amount of bleeding with debridement: Mild Bleeding Controlled with: Pressure Patient tolerated procedure: Patient tolerated procedure well Assessment/Plan Active Problems (Last Updated 10/04/18 @ 13:43 by Lisa Hutton) Type 2 diabetes mellitus (Chronic) Venous insufficiency of both lower extremities (Chronic) Wound of left lower extremity (Acute) Traumatic, penetrating with fat layer exposed. Bilateral lower extremity edema (Chronic) Assessment: Same as above. Plan: Improving. No new cocnerns at this time. Debridement done as documented above, procedure was well tolerated. Drainage improved. Switch to [place] with ABD over top. 3M wrap to both lower extremitoies for edema management. Follow up on Sunday for nurse visit to change wrap and dressing. Exercise as tolerated, avoid idle standing and elevate lower extremities when seated and in bed. Increased protein intake also recommended. Follow up in 1 week. This note was generated with [employer] dictation software. It may contain incorrect words, spelling, and punctuation that were not noted in checking the note before duane douglass
[2018-10-21 13:37] VITALS: BP 156/65; PULSE 60; RESP 18; TEMP 36.6; BMI 38.5
[2018-10-24 12:00] VITALS: BP 194/66; PULSE 58; RESP 18; TEMP 36.6; BMI 38.5
--- NOTE | 2018-10-24 12:53 | PCM.WC.PN ---
(1) Wound of left lower extremity Status: Acute Current Visit: Yes Qualifiers: Code(s): S81.802A - Unspecified open wound, left lower leg, initial encounter Comment: Traumatic, penetrating with fat layer exposed. (2) Bilateral lower extremity edema Status: Chronic Current Visit: Yes Code(s): R60.0 - Localized edema (3) Type 2 diabetes mellitus Status: Chronic Current Visit: Yes Code(s): E11.9 - Type 2 diabetes mellitus without complications (4) Venous insufficiency of both lower extremities Status: Chronic Current Visit: Yes Code(s): I87.2 - Venous insufficiency (chronic) (peripheral) Type of Wound Date of Service: 10/24/18 Chief Complaint: Left lower extremity wond and ulcer. History of Wound: Ms. Ya is a 73-year-old who presents with a new left lower extremity medial wound and lateral ulcer. Wounbd was sustained after she hit her walker. Significant bleeding was noted per patient. She has applied guaze over top. She is unsure of how she sutained her left lateral ulcer. She reports compliance with her compression stockings but still has signifcnat bilaterl lower extremity swelling/ edema. She feels well otherwise and denies chills, fever, nausea or vomiting. Progress of Wound: Improving edema. Left lateral ulcer is healed. - Physical Exam Vital Signs Temp Pulse Resp BP 98 F 58 L 18 194/66 H 10/24/18 12:00 10/24/18 12:00 10/24/18 12:00 10/24/18 12:00 General: Alert, Oriented x3, Cooperative, No apparent distress HEENT: Atraumatic, Normocephalic Oral: Moist Mucosa Neck: Supple Lungs: Normal air movement Abdomen: Obese Extremities: No cyanosis, Edema Skin: Ulcer/ Wound Wound Measurements and Assessment WC - Nurse 1 - General Ulcer Measurement Start: 10/10/18 11:45 Freq: Status: Active Protocol: Activity Type Activity Date Activity User E-Sign Co-Sign Detail Recorded Client Recorded Date Recorded By Document 10/21/18 13:37 [facility] [id number] 10/21/18 13:39 BM Document 10/24/18 12:00 BM [id number] 10/24/18 12:09 BMF 10/21/18 10/24/18 13:37 12:00 [Ulcer Assessment] 21. LLE posterior -Combined with other wound No -Current Size (cm) - Length 1.2 -Current Size (cm) - Width 0.3 -Current Size (cm) - Depth 0.2 -Total Square Cm 0.36 -Tunneling No -Undermining/Tunneling No -Circular Undermining No -Exudate Amt Medium -Exudate Type Serosanguineous -Wound Margin Thickened & Rolled Under -Granulation Amt Small (1-33%) -Granulation Quality [place] -Slough/Fibrin Yes -Necrosis Amt Large (67-100%) -Necrotic Tissue Type Adherent Slough -Structure Exposed N/A -Texture (Char-wound Skin Appearance) Scarring -Moisture (Char-wound Skin Appearance Assessed ) -Color (Char-wound Skin Appearance) Assessed -Temperature (Char-wound Skin No Abnormality Appearance) (Pt Warm) -Tenderness on Palpation (Char-wound No Skin Appearance) -Ulcer Cleansing Wound Cleanser -Foul Odor after Cleansing No -Anesthetic Used 5% Lidocaine Gel 20. LLE lateral -Combined with other wound No -Current Size (cm) - Length 0.1 -Current Size (cm) - Width 0.1 -Current Size (cm) - Depth 0.1 -Total Square Cm 0.01 -Photo Taken No -Tunneling No -Undermining/Tunneling No -Circular Undermining No -Exudate Amt Medium -Exudate Type Serosanguineous -Wound Margin Thickened & Rolled Under -Granulation Amt Small (1-33%) -Granulation Quality [place] -Slough/Fibrin Yes -Necrosis Amt Large (67-100%) -Necrotic Tissue Type Adherent Slough -Structure Exposed N/A -Texture (Char-wound Skin Appearance) Assessed -Moisture (Char-wound Skin Appearance Assessed ) -Color (Char-wound Skin Appearance) Assessed -Temperature (Char-wound Skin No Abnormality Appearance) (Pt Warm) -Tenderness on Palpation (Char-wound No Skin Appearance) -Ulcer Cleansing Wound Cleanser -Foul Odor after Cleansing No -Anesthetic Used 5% Lidocaine Gel Wound Center Nurse 1 [Edema Assessment] -Lower Limb Edema Present Yes Yes -Right Calf (cm) 31.1 30 -Right Ankle (cm) 25.3 26.3 -Left Calf (cm) 29.1 29.7 -Left Ankle (cm) 25 26 WC - Nurse 2 - General Ulcer CM Notes Start: 10/10/18 11:45 Freq: Status: Active Protocol: Activity Type Activity Date Activity User E-Sign Co-Sign Detail Recorded Client Recorded Date Recorded By Document 10/24/18 12:30 MW [id number] 10/24/18 12:35 MW 10/24/18 12:30 Wound Center Nurse 2 [Procedure/Treatment] 21. LLE posterior -Time 12:31 -Correct Patient Yes -Correct Side, Site, Position Yes -Correct Procedure Yes -Procedure Performed Yes -Type of Procedure Debridement -Clinical Debridement Subcutaneous -Post Debridement Size (cm) - Length 1.2 -Post Debridement Size (cm) - Width 0.3 -Post Debridement Size (cm) - Depth 0.1 -Total Square Cm 0.36 -Wound/Ulcer Outcome Not Healed -Ulcer Cleansing Rinsed/ Irrigated with Saline -Foul Odor after Cleansing No -Bioengineered Tissue No -Bleeding Controlled with Pressure -Offloading No -Treatment Response Procedure Tolerated Well 20. LLE lateral -Time 12:31 -Correct Patient Yes -Correct Side, Site, Position Yes -Correct Procedure Yes -Procedure Performed No -Post Debridement Size (cm) - Length 0 -Post Debridement Size (cm) - Width 0 -Post Debridement Size (cm) - Depth 0 -Total Square Cm 0 -Wound/Ulcer Outcome Healed- Epithelialized -Treatment Response Procedure Tolerated Well [See Physician Procedure note for Specifics] Pain Scale: 0-10 Numeric [Pain] -Is Patient Pain Free? Yes Musculoskeletal: No Muscle Wasting Neurological: Cranial nerves II-XII grossly intact Psych/Mental Status: Normal Affect Debridement Note Post-Debridement Measurements/Treatment WC - Nurse 2 - General Ulcer CM Notes Start: 10/10/18 11:45 Freq: Status: Active Protocol: Activity Type Activity Date Activity User E-Sign Co-Sign Detail Recorded Client Recorded Date Recorded By Document 10/10/18 13:36 MW [id number] 10/10/18 13:38 MW Document 10/17/18 11:53 MW [id number] 10/17/18 11:57 MW Document 10/24/18 12:30 MW [id number] 10/24/18 12:35 MW 10/10/18 10/17/18 10/24/18 13:36 11:53 12:30 Wound Center Nurse 2 21. LLE posterior -Time 13:37 11:53 12:31 -Correct Patient Yes Yes Yes -Correct Side, Site, Position Yes Yes Yes -Correct Procedure Yes Yes Yes -Procedure Performed Yes Yes Yes -Type of Procedure Debridement Debridement Debridement -Clinical Debridement Subcutaneous Subcutaneous Subcutaneous -Post Debridement Size (cm) - Length 1.5 1.5 1.2 -Post Debridement Size (cm) - Width 0.5 0.5 0.3 -Post Debridement Size (cm) - Depth 0.3 0.3 0.1 -Total Square Cm 0.75 0.75 0.36 -Wound/Ulcer Outcome Not Healed Not Healed Not Healed -Ulcer Cleansing Rinsed/ Rinsed/ Rinsed/ Irrigated with Irrigated with Irrigated with Saline Saline Saline -Foul Odor after Cleansing No No No -Bioengineered Tissue No No No -Bleeding Controlled with Pressure Pressure Pressure -Offloading No No No -Treatment Response Procedure Procedure Procedure Tolerated Well Tolerated Well Tolerated Well 20. LLE lateral -Time 13:37 11:53 12:31 -Correct Patient Yes Yes Yes -Correct Side, Site, Position Yes Yes Yes -Correct Procedure Yes Yes Yes -Procedure Performed Yes Yes No -Type of Procedure Debridement Debridement -Clinical Debridement Subcutaneous Subcutaneous -Post Debridement Size (cm) - Length 1.0 0.3 0 -Post Debridement Size (cm) - Width 0.8 0.4 0 -Post Debridement Size (cm) - Depth 0.1 0.1 0 -Total Square Cm 0.80 0.12 0 -Wound/Ulcer Outcome Not Healed Not Healed Healed- Epithelialized -Ulcer Cleansing Rinsed/ Rinsed/ Irrigated with Irrigated with Saline Saline -Foul Odor after Cleansing No No -Bioengineered Tissue No No -Bleeding Controlled with Pressure Pressure -Offloading No No -Treatment Response Procedure Procedure Procedure Tolerated Well Tolerated Well Tolerated Well Pain Scale: 0-10 Numeric Is Patient Pain Free? Yes Yes Yes Wound debrided: Left Leg ( Medial ) Type of Debridement: Excisional debridement Anesthesia Used: 4% Lidocaine Solution Depth: Down to and including healthy tissue, in the subcutaneous layer Percentage of wound debrided: 100 Instrument Used: 3mm curette Tissue Removed: Slough and devitalized tissue Severity: Fat Layer Exposed Amount of bleeding with debridement: Mild Bleeding Controlled with: Pressure Patient tolerated procedure well Assessment/Plan Active Problems (Last Updated 10/04/18 @ 13:43 by Lisa Hutton) Type 2 diabetes mellitus (Chronic) Venous insufficiency of both lower extremities (Chronic) Wound of left lower extremity (Acute) Traumatic, penetrating with fat layer exposed. Bilateral lower extremity edema (Chronic) Assessment: Same as above. Plan: Improving. No new cocnerns at this time. Debridement done as documented above, procedure was well tolerated. Drainage improved. Continue Pomogran with ABD over top. Circaids for edema management. Exercise as tolerated, avoid idle standing and elevate lower extremities when seated and in bed. Increased protein intake also recommended. Follow up in 1 week. This note was generated with [employer] dictation software. It may contain incorrect words, spelling, and punctuation that were not noted in checking the note before signing.
== END 2018-11-04 23:59 ==
LOC: WC 11:15
PROVIDERS: Family Provider Family Medicine Geriatric Medicine; PCP Family Medicine Geriatric Medicine; Referring Provider Podiatrist; Visit Provider Internal Medicine
DX: E11.622 Type 2 diabetes mellitus with other skin ulcer (principal); R60.0 Localized edema; I87.2 Venous insufficiency (chronic) (peripheral); L97.822 Non-pressure chronic ulcer of other part of left lower leg with fat layer exposed
CPT/HCPCS: 11042; 29581; 99213; G0463

== ENCOUNTER 2018-10-30 17:17 | Inpatient (IN) | payer MEDICARE, SELFPAY ==
[2018-10-30 17:19] VITALS: BP 186/76; PULSE 80; RESP 17; TEMP 37.3; O2SAT 99; BMI 43.0
[2018-10-30 17:21] VITALS: BP 162/121; PULSE 80; RESP 20; TEMP 37.8; O2SAT 96
[2018-10-30 18:21] VITALS: PULSE 81; RESP 18; TEMP 37.8; O2SAT 96
[2018-10-30 18:41] LABS: Absolute Lymphocyte Count 1.28 X10^3/uL (0.83-4.51); Absolute Neutrophil Count 23.5 X10^3/uL (2.0-7.7); Basophil# 0.05 X10^3/uL; Basophil% 0.2 % (0-1); Eosinophil# 0.03 X10^3/uL; Eosinophils% 0.1 % (0-5); Hematocrit 47.6 % (37-47); Hemoglobin 15.1 g/dL (12.0-15.0); Lymphocyte # 1.28 X10^3/ul (4.0); Mean Corp Hgb Conc 31.7 g/dL (32-36); Mean Corpuscular Hgb 29.8 pg (27.0-32.0); Mean Corpuscular Volume 93.9 fL (81-99); Mean Platelet Vol. 10.3 fl (6.2-12.0); Monocyte# 0.57 X10^3/uL; Monocyte% 2.2 % (0-10); NRBC Flagged by Analyzer 0 % (0-5); Neutrophil # 23.45 X10^3/uL (2.7-7.7); Neutrophil % 91.6 % (47-70); POSITIVE DIFFERENTIAL YES; Platelet Count 198 K/mm3 (150-450); RBC Distribution Width CV 15.6 % (11.6-14.6); RBC Distribution Width SD 53.2 fl (35.1-43.9); Red Blood Count 5.07 M/mm3 (4.2-5.4); White Blood Count 25.6 K/mm3 (4.4-11.0)
[2018-10-30 18:45] LABS: Anion Gap 9 (5-15); BUN 20 mg/dL (7-18); BUN/Creat Ratio 14.8 RATIO (10-20); Calcium,Total 9.5 mg/dL (8.5-10.1); Chloride 100 mmol/L (98-107); Creatinine, Serum 1.35 mg/dL (0.55-1.02); EST Glomerular Filtration Rate 41 mL/min (>60); Est Glom Filt Rate - Afr Amer 49 mL/min (>60); Estimated Creatinine Clearance 26.26 ml/min; Glucose 110 mg/dL (74-106); Potassium 5.1 mmol/L (3.5-5.1); Sodium Level 135 mmol/L (136-145)
[2018-10-30 18:50] LABS: Differential Indicated SCAN CRITERIA MET
[2018-10-30 19:00] VITALS: BP 116/99; PULSE 84; RESP 20; TEMP 38; O2SAT 97
--- NOTE | 2018-10-30 19:03 | ED.VISSUMM ---
- ER Visit Summary Date of Service: 10/30/18 Chief Complaint: [Swelling and redness to left leg] History of Present Illness: The patient is a 73 F [presents to the emergency department swelling and redness to the left leg initially started last evening. Patient was seen by Dr. Franco in the office today and apparently given a shot of antibiotic. Patient felt too weak to get out of car on arrival home. Patient had subjective fever. She is had some chills. Patient has history of cellulitis. Patient has history of coronary artery disease, diabetes, hypertension, high cholesterol, and A. fib.] Physical Examination: [HEENT-PERRLA, EOMI. Cranial nerves II through XII grossly intact. TMs clear. Mucous membranes moist. No adenopathy. Cardiovascular-regular rate and rhythm without murmur or ectopy Lungs-clear to auscultation, chest wall stable without crepitus or subcu emphysema Abdomen-normoactive bowel sounds, soft, nontender, no rebound or rigidity, no peritoneal signs. Extremities-intact ?4, normal range of motion, normal pulses, atraumatic. Left leg-patient has diffuse erythema and cellulitic changes from the foot to the mid thigh. The leg is warm to the touch.] Test Results: [CBC with differential obtained showed a white count of 25.6, hemoglobin 15, hematocrit 48, platelets 198. Chemistries unremarkable. Lactate pending.] Emergency Department Course and Treatment: [He was started on clindamycin IV as she has penicillin allergy as well as allergy to ciprofloxacin. Patient had blood cultures ordered.] Treatment Plan: [Admit for IV antibiotics] Disposition: [Admit] Impression: [Cellulitis left leg] This note was generated with [employer] dictation software. It may contain incorrect words, spelling, and punctuation that were not noted in review of the chart prior to signing ED Disposition - Plan for ED Patient: Referrals: Octaviano Franco Chi, MD [Primary Care Provider] -
[2018-10-30] MEDS: Acetaminophen 325 MG Tablet 650 MG PO (19:25)
--- NOTE | 2018-10-30 19:39 | ED.RN ---
DR MICHELLE NOTIFIED OF LACTIC ACID RESULTS
[2018-10-30 19:40] LABS: Lactic Acid 3.5 mmol/L (0.4-2.0)
[2018-10-30 19:49] LABS: Differential Comment SCANNED
[2018-10-30 19:55] VITALS: BMI 36.8
[2018-10-30 19:58] VITALS: BMI 43.0
--- NOTE | 2018-10-30 20:19 | HP.PCM_ITS ---
Problem List (1) Essential hypertension Status: Chronic (2) Type 2 diabetes mellitus Status: Chronic (3) Venous insufficiency of both lower extremities Status: Chronic (4) Wound of left lower extremity Status: Acute Qualifiers: Comment: Traumatic, penetrating with fat layer exposed. (5) Cellulitis Status: Acute (6) Bilateral lower extremity edema Status: Chronic (7) Diastolic CHF Status: Chronic (8) Iron deficiency anemia Status: Chronic Comment: etiology unknown (9) PVD (peripheral vascular disease) Status: Chronic (10) Presence of stent in coronary artery Status: Chronic Comment: PTCA/stent to CX; PTCA/Stent PTCA/stent to prox RCA 05/06; PTCA/LILY in mid to distal RCA 08/29/12 (11) Atherosclerotic heart disease of [place] coronary artery without angina pectoris Status: Chronic Qualifiers: Comment: PTCA/stent to CX; PTCA/Stent PTCA/stent to prox RCA 05/06; PTCA/LILY in mid to distal RCA 08/29/12; CABG x2 ARREGUIN tp LAD and SVG to OM2 01/02/11 (12) S/P CABG (coronary artery bypass graft) Status: Chronic Comment: CABG x2 ARREGUIN tp LAD and SVG to OM2 01/02/11 (13) Paroxysmal atrial fibrillation Status: Chronic (14) Hyperlipidemia Status: Chronic Qualifiers: History of Present Illness Date of Admission: 10/30/18 Chief Complaint: Left lower extremity cellulitis The patient is a 73 year old F with a PMH as below who presents with a 1 day history of cellulitis on her left lower extremity. She first noticed some redness yesterday evening and she went to her primary care doctor today where she received a shot of some sort and was sent home. She was initially taken to the doctor's office by her sister however she was unable to get out of the car and her called her son who recommended that he come to the ER. In the ER she w as found to have a leukocytosis as well as lactic acid of 3.5 and a fever. She was given a dose of clindamycin. She does have swelling in both lower extremities and she did have a recent wound that is currently being treated at the wound care center and is almost closed. There does not appear to be a source of infection or an area of significant fluctuance that she can identify. She denies any recent injuries to the leg. She states that she does wear her compression stockings on her left lower extremity as well. She denies any lightheadedness or dizziness, however she does have some shortness of breath because she states that she does not wear her CPAP at night as she always showed and she sometimes does not take her Lasix appropriately. Past Medical History Past Medical History (Chronic Problems): Chronic Problems (Last Updated 10/28/18 @ 14:38 by Lisa Hutton) Essential hypertension (Chronic) Type 2 diabetes mellitus (Chronic) Venous insufficiency of both lower extremities (Chronic) Open wound of right knee (Chronic) Traumatic,penetratiung with fat layer exposed. Bilateral lower extremity edema (Chronic) Diastolic CHF (Chronic) Iron deficiency anemia (Chronic) etiology unknown Ulcer of right lower extremity with fat layer exposed (Chronic) Ulcer of right foot with fat layer exposed (Chronic) Ulcer of left lower extremity with fat layer exposed (Chronic) PVD (peripheral vascular disease) (Chronic) Edema, lower extremity (Chronic) Presence of stent in coronary artery (Chronic ~08/29/12) PTCA/stent to CX; PTCA/Stent PTCA/stent to prox RCA 05/06; PTCA/LILY in mid to distal RCA 08/29/12 Atherosclerotic heart disease of [place] coronary artery without angina pectoris (Chronic) PTCA/stent to CX; PTCA/Stent PTCA/stent to prox RCA 05/06; PTCA/LILY in mid to distal RCA 08/29/12; CABG x2 ARREGUIN tp LAD and SVG to OM2 01/02/11 S/P CABG (coronary artery bypass graft) (Chronic ~01/02/11) CABG x2 ARREGUIN tp LAD and SVG to OM2 01/02/11 Paroxysmal atrial fibrillation (Chronic) Hyperlipidemia (Chronic) Medical History: Medical History (Last Updated 10/28/18 @ 14:38 by Lisa Hutton) Essential hypertension (Chronic) I10 Type 2 diabetes mellitus (Chronic) E11.9 Venous insufficiency of both lower extremities (Chronic) I87.2 Diastolic CHF (Chronic) I50.30 Iron deficiency anemia (Chronic) D50.9 etiology unknown Ulcer of right lower extremity with fat layer exposed (Chronic) L97.912 Ulcer of right foot with fat layer exposed (Chronic) L97.512 Ulcer of left lower extremity with fat layer exposed (Chronic) L97.922 PVD (peripheral vascular disease) (Chronic) I73.9 Ulcer of left lower extremity with fat layer exposed (Resolved) L97.922 Edema, lower extremity (Chronic) R60.0 Presence of stent in coronary artery (Chronic) Onset Date: ~08/29/12 Z95.5 PTCA/stent to CX; PTCA/Stent PTCA/stent to prox RCA 05/06; PTCA/LILY in mid to distal RCA 08/29/12 Atherosclerotic heart disease of [place] coronary artery without angina pectoris (Chronic) I25.10 PTCA/stent to CX; PTCA/Stent PTCA/stent to prox RCA 05/06; PTCA/LILY in mid to distal RCA 08/29/12; CABG x2 ARREGUIN tp LAD and SVG to OM2 01/02/11 Paroxysmal atrial fibrillation (Chronic) I48.0 Hyperlipidemia (Chronic) E78.5 Acute cystitis N30.00 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 Cellulitis L03.90 Diabetic ulcer of both lower extremities E11.622, L97.919, L97.929 History of DVT (deep vein thrombosis) Z86.718 Severe sepsis A41.9, R65.20 Trigeminal neuralgia G50.0 Multiple sclerosis G35 LAURITA (obstructive sleep apnea) G47.33 Peripheral vascular disease I73.9 Venous insufficiency of both lower extremities I87.2 Cognitive impairment (Resolved) R41.89 patient is confused at times Cellulitis of right leg L03.115 Allergies codeine Allergy (Unknown, Verified 10/30/18 17:18) Hives ciprofloxacin [From Cipro] Allergy (Verified 10/30/18 17:18) Hives ciprofloxacin HCl [From Cipro] Allergy (Verified 10/30/18 17:18) Hives Latex, Natural Rubber Allergy (Verified 10/30/18 17:18) Rash Penicillins [PCN] Allergy (Verified 10/30/18 17:18) Hives adhesive tape Adverse Reaction (Verified 10/30/18 17:18) Rash Home Medications: Ambulatory Orders Medication Instructions Recorded Amiodarone HCl 200 mg PO DAILY 04/09/18 Duloxetine HCl 60 mg PO DAILY 04/09/18 Magnesium Oxide [Mag-Ox 400] 400 mg PO BID 04/09/18 Metoprolol Tartrate [Lopressor 50 mg PO BID 04/09/18 (beta man)] Pantoprazole Sodium [Protonix] 40 mg PO DAILY 04/09/18 Rivaroxaban [Xarelto] 15 mg PO DAILY 04/09/18 Budesonide Inhaler 180 mcg 1 puff INHALATION BID #1 inhaler 04/17/18 [Pulmicort Inhaler 180 mcg] Docusate Sodium 100 mg PO DAILY PRN PRN 05/22/18 Ergocalciferol (Vitamin D2) 50,000 unit PO QWEEK 05/22/18 [Vitamin D2] Donepezil HCl 5 mg PO DAILY 08/19/18 Potassium Chloride [Klor-Con M20] 20 meq PO BID 08/19/18 traMADol [Ultram] 50 mg PO BID PRN PRN 08/19/18 Acetaminophen [Tylenol Tablet] 650 mg PO Q6H PRN PRN tab 08/23/18 Furosemide [Lasix] 60 mg PO DAILY #1 tab 08/23/18 ferrous sulfate 325 mg (65 mg 325 mg PO BID 09/25/18 iron) tablet,delayed release gabapentin 300 mg capsule 600 mg PO BID cap 09/25/18 Fosfomycin Tromethamine [Monurol] 3 gm PO Q3D 10/30/18 Surgical History: Surgical History (Last Updated 10/28/18 @ 14:38 by Lisa Hutton) S/P CABG (coronary artery bypass graft) (Chronic) Onset Date: ~01/02/11 Z95.1 CABG x2 ARREGUIN tp LAD and SVG to OM2 01/02/11 Presence of coronary angioplasty implant and graft Onset Date: ~08/29/12 Z95.5 PTCA/stent to CX; PTCA/Stent PTCA/stent to prox RCA 05/06; PTCA/LILY in mid to distal RCA 08/29/12 History of cataract surgery Z98.49 History of cholecystectomy Z98.890, Z90.49 History of hernia repair Z98.890, Z87.19 History of tonsillectomy and adenoidectomy Z98.890 History of total hysterectomy Z98.890, Z90.710 Postsurgical percutaneous transluminal coronary angioplasty (PTCA) status Z98.61 PTCA/stent to CX; PTCA/Stent PTCA/stent to prox RCA 05/06; PTCA/LILY in mid to distal RCA 07/25/13 Surgical History: angioplasty, appendectomy, cholecystectomy, coronary bypass surgery, hysterectomy, tonsillectomy, - - R ankle surgery with hardware. placement of stents (cardiac or lower extremity. patient is unsure). excision upper lip carcinoma. Incision and drainage and excisional debridement infected traumatic open hematoma wound right anterior leg (90 cm2) and incision and drainage and excisional debridement infected traumatic open hematoma wound left anterior leg (72 cm2) - 12/29/14. 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 Sibling Family History: Family History (Last Reviewed 04/09/18 @ 14:40 by Douglas Bowman DO) Father Heart disease Mother Hypertension Cancer Brother Diabetes Hypertension History Items: Diabetes Review of Systems Constitutional: Reports: Fever. Denies: Chills, Weight Change HEENT: Denies: Head Aches, Sinus Congestion, Sinus Drainage Cardiovascular: Reports: Edema. Denies: Chest Pain, Palpitations Respiratory: Denies: Cough, Shortness of breath at rest, Sputum production Gastrointestinal: Denies: Abdominal Pain, Nausea, Vomiting Genitourinary: Denies: Dysuria Musculoskeletal: Reports: Leg Pain. Denies: Joint Pain, Joint Tenderness Skin: Reports: Skin Changes, Wounds. Denies: Rash Neurological: Denies: Numbness, Tingling, Focal weakness Psychiatric: Denies: Anxiety, Depression Hematologic/ Lymphatic: Denies: Easy Bruising, Easy Bleeding VTE Information - Inpt Only VTE Present on Admission: No - Physical Exam General: Alert, Oriented x3, Cooperative, No apparent distress, - - Family does note that she does get a little bit confused when she has an infection. This is not the first cellulitis she has had. HEENT: Atraumatic, PERRLA, EOMI, Normocephalic Oral: Dry Mucosa Neck: Supple, No JVD Lungs: Normal air movement, No rhonchi, No rales, Diminished, Wheezes - Slight expiratory wheezing bilaterally Cardiovascular: Regular rate, Regular Rhythm, Normal S1, Normal S2, No murmurs Abdomen: Soft, Non Tender, Non-Distended, No Hepato-splenomegaly, Obese Extremities: Capillary Refill Less than 3 Seconds, Edema - Bilateral edema 2+ Skin: - - She has erythema extending from her foot up to her mid thigh on the left, it is warm and tender no sign of recent wound, there is a wound is being taken care of at the wound center that appears to be almost closed Neurological: Neuro grossly intact, Sensory exam intact to light touch and pain Psych/Mental Status: Normal Affect, Appropriate Vital Signs Temp Pulse Resp BP Pulse Ox 100.4 F H 84 20 H 116/99 H 97 10/30/18 19:00 10/30/18 19:00 10/30/18 19:00 10/30/18 19:00 10/30/18 19:00 Oxygen Delivery Method Room Air Weight: 220 lb Body Mass Index (BMI) 43.0 Finger Stick Blood Glucose 187 Intake and Output for Last 24 Hours 10/28/18 10/29/18 10/30/18 23:59 23:59 23:59 Intake Total 54 / 54 Balance 54 / 54 Laboratory Tests Past 24 Hrs 10/30/18 10/30/18 10/30/18 18:16 18:16 18:32 WBC 25.6 H RBC 5.07 Hgb 15.1 H Hct 47.6 H MCV 93.9 MCH 29.8 MCHC 31.7 L RDW Std Deviation 53.2 H RDW Coeff of Carissa 15.6 H Plt Count 198 MPV 10.3 Immature Gran % (Auto) 0.900 Neut % (Auto) 91.6 H Lymph % (Auto) 5.0 L [place] % (Auto) 2.2 Eos % (Auto) 0.1 Baso % (Auto) 0.2 Absolute Neuts (auto) 23.5 H Absolute Lymphs (auto) 1.28 Nucleated RBC % 0 Differential Comment SCANNED Sodium 135 L Potassium 5.1 Chloride 100 Carbon Dioxide 26.0 Anion Gap 9 BUN 20 H Creatinine 1.35 H Estim Creat Clear Calc 26.26 Est GFR (MDRD) Af Amer 49 L Est GFR (MDRD) Non-Af 41 L BUN/Creatinine Ratio 14.8 Glucose 110 H Lactic Acid 3.5 H Calcium 9.5 Assessment/Plan All Active Problems (Last Updated 10/28/18 @ 14:38 by Lisa Hutton) Wound of left lower extremity (Acute) Cellulitis (Acute) Metabolic encephalopathy (Resolved) Ulcer of left lower extremity with fat layer exposed (Resolved) Cognitive impairment (Resolved) Open wound of left elbow (Resolved) Open wound of right elbow (Resolved) UTI (urinary tract infection) (Resolved) Wound of right foot (Resolved) 1. Left lower extreme the cellulitis/chronic venous stasis/sepsis secondary to cellulitis -We will continue with IV fluids for lactic acid 3.5, will repeat -She received clindamycin in the ER, given her appearance of cellulitis, will continue with Ancef 2 g IV every 8 -She does have a history of diabetes and she does have a history of diabetic foot ulcer, though there is no sign currently of a foot ulcer. Previous cultures did grow Pseudomonas and enterococcus, will monitor for now there is no place to get a wound culture from and therefore will empirically treat with the Ancef and if she does not have improvement after several doses then will broaden -We will consult wound care and will wrap her legs for her edema -When we can decrease her IV fluids then we can try to restart her Lasix to diurese some of this edema 2. Bilateral lower extremity edema/obstructive sleep apnea/coronary artery disease status post stents and CABG/HTN/HLD -We will hold her Lasix for now while she is receiving IV fluids and an account of her sepsis -Continue with her amiodarone and metoprolol -She is also on Xarelto 15 mg p.o. daily because of her cardiac stents and her CABG in an effort to prevent strokes according to the family, will continue -Continue to wrap her lower extremities -She currently does not wear her CPAP at home consistently, but will have family bring in her CPAP 3. COPD -Currently not in exacerbation, however she is supposed to be taking a budesonide inhaler which she does not take consistently at home -We will order while here as well as albuterol as needed 4. Chronic UTI -Her PCP started her on fosfomycin -She took her first dose yesterday and therefore she is due for her second dose tomorrow -Will order while here 5. Dementia/anxiety/depression -Stable -Continue with Aricept and Cymbalta DVT: Xarelto CODE STATUS: DNR CCA Code Visit Inpatient E&M: 87645 Init Hosp L3
[2018-10-30] MEDS: 0.9% Normal Saline 1,000 ML 100 ML IV (21:34)
[2018-10-30] MEDS: traMADol 50 MG Tablet PO (21:34)
[2018-10-30] MEDS: Menthol/Lanolin/Calamine/Znox 113 GM Tube 1 APPLIC TOPICAL (21:35)
[2018-10-30] MEDS: Gabapentin 600 MG Tablet PO (21:36)
[2018-10-30] MEDS: Nystatin Powder 15gm Bottle 1 APPLIC TOPICAL (21:36)
[2018-10-30 21:37] VITALS: PULSE 74
[2018-10-30] MEDS: Metoprolol Tartrate 50 MG Tablet PO (21:37)
[2018-10-30 21:41] VITALS: BP 123/68; PULSE 74; RESP 16; TEMP 37.7; O2SAT 94
[2018-10-30] MEDS: Cefazolin 2 GM in 0.9% Normal Saline 100 ML IV (22:02)
[2018-10-30] MEDS: 0.9% NaCl Peripheral Flush Adult/Peds IV (22:02)
[2018-10-30 22:40] LABS: Reflex Lactate? Y
[2018-10-30 22:55] LABS: Bedside Glucose 110 mg/dL (70-110)
[2018-10-30 23:37] LABS: Lactic Acid 2.1 mmol/L (0.4-2.0)
[2018-10-31] VITALS (13 sets, daily range): BP systolic 108–150; BP diastolic 51–79; PULSE 60–93; RESP 15–20; TEMP 36.4–38.1; O2SAT 96–100
[2018-10-31] MEDS: Acetaminophen 325 MG Tablet 650 MG PO (03:27)
[2018-10-31] MEDS: Cefazolin 2 GM in 0.9% Normal Saline 100 ML IV (04:59)
[2018-10-31] MEDS: Nystatin Powder 15gm Bottle 1 APPLIC TOPICAL ×3 (04:59→21:58)
[2018-10-31] MEDS: Menthol/Lanolin/Calamine/Znox 113 GM Tube 1 APPLIC TOPICAL ×3 (05:00→21:58)
[2018-10-31 06:29] LABS: Absolute Lymphocyte Count 1.04 X10^3/uL (0.83-4.51); Absolute Neutrophil Count 16.2 X10^3/uL (2.0-7.7); Basophil# 0.03 X10^3/uL; Basophil% 0.2 % (0-1); Eosinophil# 0.02 X10^3/uL; Eosinophils% 0.1 % (0-5); Hematocrit 39.5 % (37-47); Hemoglobin 12.2 g/dL (12.0-15.0); Lymphocyte # 1.04 X10^3/ul (4.0); Lymphocyte % 5.8 % (19-41); Mean Corp Hgb Conc 30.9 g/dL (32-36); Mean Platelet Vol. 10.9 fl (6.2-12.0); Monocyte# 0.59 X10^3/uL; Monocyte% 3.3 % (0-10); NRBC Flagged by Analyzer 0 % (0-5); Neutrophil # 16.24 X10^3/uL (2.7-7.7); Neutrophil % 89.8 % (47-70); Platelet Count 177 K/mm3 (150-450); RBC Distribution Width CV 15.8 % (11.6-14.6); RBC Distribution Width SD 54.1 fl (35.1-43.9); White Blood Count 18.1 K/mm3 (4.4-11.0)
[2018-10-31 06:51] LABS: Bedside Glucose 98 mg/dL (70-110)
[2018-10-31 06:53] LABS: Anion Gap 5 (5-15); BUN 23 mg/dL (7-18); BUN/Creat Ratio 17.3 RATIO (10-20); Calcium,Total 8.1 mg/dL (8.5-10.1); Chloride 107 mmol/L (98-107); Creatinine, Serum 1.33 mg/dL (0.55-1.02); EST Glomerular Filtration Rate 41 mL/min (>60); Est Glom Filt Rate - Afr Amer 50 mL/min (>60); Estimated Creatinine Clearance 29.35 ml/min; Glucose 108 mg/dL (74-106); Potassium 3.6 mmol/L (3.5-5.1); Sodium Level 138 mmol/L (136-145)
[2018-10-31] MEDS: DiphenhydrAMINE 25 MG Capsule PO (07:07)
[2018-10-31] MEDS: Budesonide Respules 0.5 MG/2 ML AMPUL.NEB. INHALATION (07:17)
--- NOTE | 2018-10-31 07:17 | PN_ITS ---
Subjective: The patient is a 73-year-old female with a past medical history of peripheral vascular disease, coronary artery disease with prior stents and CABG x2 vessels, type 2 diabetes mellitus, obesity, HTN, HLD, chronic wounds, diastolic congestive heart failure, peripheral vascular disease, history of VTE, multiple sclerosis, trigeminal neuralgia, obstructive sleep apnea and PAF who presented to the ED at [facility] on 10/30/2018 complaining of redness of the left lower extremity. Vital signs at presentation to the emergency room wer e temperature 99.2, pulse rate 80, blood pressure 186/76, respiratory rate 17 and she was 99% saturated on room air. CBC showed an elevated white blood cell count at 25.6 with a marked left shift. Hemoglobin was increased at 15.1 and platelets were within normal limits. Sodium was mildly decreased at 135 and the BUN was 20 with a creatinine of 1.35. Baseline creatinine in 2019 has ranged from 1.09-1.47. Initial lactic acid was 3.5 and the recheck was 2.1. Blood cultures x2 were sent to the lab from the emergency department. She was given clindamycin in the emergency department and admitted to the hospital and transition to cefazolin. She developed a pruritic rash after Ancef and it was discontinued. she has been transitioned to Vancomycin and Aztreonam. She has hives with penicillins, cephalosporins and fluoroquinolones. Tolerated cefepime in August when she was admitted to the hospital for cellulitis. A wound culture done in August 2018 grew pseudomonas aeruginosa and Enterococcus faecalis. review of cultures over the past year reveals No MRSA + cultures. A swab for wound culture and MRSA PCR was sent by the wound/ostomy nurse to the lab this AM. she is c/o SOB and was wheezing, denies CP. Has a rash over the stomach, abd extremities and back. Her face is red and the lips appear to be swollen. Denies trouble swallowing. the hands and feet are cyanotic. Cardiogram in April 2018 shows a 65% ejection fraction with stage I diastolic dysfunction and moderate enlargement of the left atrium. - Physical Exam General: Alert, Oriented x3, Cooperative, - - sitting in the recliner at the bedside. Face is very red but no hives. Lips appear swollen. No hives on the face. HEENT: Atraumatic, PERRLA, EOMI Neck: Supple, No Nodes, Trachea Midline Lungs: No wheeze, - - anterior and lateral CTA but diminished. Mild conversational dyspnea. Cardiovascular: Regular rate, Normal S1, Normal S2, No murmurs Abdomen: Bowel Sounds Present, Soft, Non Tender, Non-Distended, Obese Extremities: No clubbing, Cyanosis - of the hands an feet......denies pain and they are not cool to the touch. Denies a hx of Raynaud's Skin: - - she has a pruritic rash that developed after the second dose of Ancef. Both LE's are in JASMINE wraps. I viewed the photos Hannah took and the LLE is Bright red from the toes into the mid thigh. Small opening in the skin on the distal LLE over the anterior cabrera. Warm to touch per Hannah. Denies any significant groin pain. Musculoskeletal: No Muscle Wasting, Arthritic Changes Neurological: Cranial nerves II-XII grossly intact, Neuro grossly intact Psych/Mental Status: Appropriate Vital Signs Temp Pulse Resp BP Pulse Ox 98.2 F 73 18 148/55 H 97 10/31/18 06:46 10/31/18 03:45 10/31/18 03:45 10/31/18 03:45 10/31/18 03:45 Oxygen Flow Rate (L/min) 2 Oxygen Delivery Method Nasal Cannula Weight: 201 lb 1 oz Body Mass Index (BMI) 36.8 Finger Stick Blood Glucose 187 Intake and Output for Last 24 Hours 10/29/18 10/30/18 10/31/18 23:59 23:59 23:59 Intake Total 264 / 264 956.67 / 956.67 Balance 264 / 264 956.67 / 956.67 Laboratory Tests Past 24 Hrs 10/30/18 10/30/18 10/30/18 18:16 18:16 18:32 WBC 25.6 H RBC 5.07 Hgb 15.1 H Hct 47.6 H MCV 93.9 MCH 29.8 MCHC 31.7 L RDW Std Deviation 53.2 H RDW Coeff of Carissa 15.6 H Plt Count 198 MPV 10.3 Immature Gran % (Auto) 0.900 Neut % (Auto) 91.6 H Lymph % (Auto) 5.0 L [place] % (Auto) 2.2 Eos % (Auto) 0.1 Baso % (Auto) 0.2 Absolute Neuts (auto) 23.5 H Absolute Lymphs (auto) 1.28 Nucleated RBC % 0 Differential Comment SCANNED Sodium 135 L Potassium 5.1 Chloride 100 Carbon Dioxide 26.0 Anion Gap 9 BUN 20 H Creatinine 1.35 H Estim Creat Clear Calc 26.26 Est GFR (MDRD) Af Amer 49 L Est GFR (MDRD) Non-Af 41 L BUN/Creatinine Ratio 14.8 Glucose 110 H Lactic Acid 3.5 H Calcium 9.5 10/30/18 10/31/18 10/31/18 23:00 05:58 05:58 WBC 18.1 H RBC 4.20 Hgb 12.2 Hct 39.5 MCV 94.0 MCH 29.0 MCHC 30.9 L RDW Std Deviation 54.1 H RDW Coeff of [place] 15.8 H Plt Count 177 MPV 10.9 Immature Gran % (Auto) 0.800 Neut % (Auto) 89.8 H Lymph % (Auto) 5.8 L [place] % (Auto) 3.3 Eos % (Auto) 0.1 Baso % (Auto) 0.2 Absolute Neuts (auto) 16.2 H Absolute Lymphs (auto) 1.04 Nucleated RBC % 0 Differential Comment Sodium 138 Potassium 3.6 Chloride 107 Carbon Dioxide 26.0 Anion Gap 5 BUN 23 H Creatinine 1.33 H Estim Creat Clear Calc 29.35 Est GFR (MDRD) Af Amer 50 L Est GFR (MDRD) Non-Af 41 L BUN/Creatinine Ratio 17.3 Glucose 108 H Lactic Acid 2.1 H Calcium 8.1 L POC Glucose 10/31/18 10/30/18 06:33 22:51 POC Glucose 98 110 Medical Necessity - Tobacco Use Smoking Status: Former smoker Tobacco Use: Cigarettes Assessment/Plan All Active Problems (Last Updated 10/28/18 @ 14:38 by iLsa Hutton) Wound of left lower extremity (Acute) Cellulitis (Acute) Metabolic encephalopathy (Resolved) Ulcer of left lower extremity with fat layer exposed (Resolved) Cognitive impairment (Resolved) Open wound of left elbow (Resolved) Open wound of right elbow (Resolved) UTI (urinary tract infection) (Resolved) Wound of right foot (Resolved) Impressions 1. Acute sepsis secondary to acute cellulitis of the left lower extremity with temp greater than 100.4 ?F, white blood cell count of 25.6, lactic acid 3.5. 2. Cellulitis of the left lower extremity - Aztreonam and Vanco. consult Dr. Brown. MRSA and staph aureus protein are negative. 3. Allergic dermatitis likely secondary to Ancef with acute respiratory insufficiency with hypoxemia and cyanotic hands and feet....hemodynamically stable. she is allergic to Cephalosporins, PCN and also Cipro.......antibiotic changed to Aztreonam and VAnco. Transfer to PCU. CXR, CE's, EKG and ABG now. Start scheduled Solu-Medrol, Benadryl and famotidine. 4. pulmonary edema with a BNP of 653. Lasix IV given 5. Coronary artery disease with prior stents and CABG x2 vessels 6. Diabetes mellitus type 2/hypertension/hyperlipidemia/obesity/chronic diastolic congestive heart failure?peripheral vascular disease/history of VTE/LAURITA/PAF/multiple sclerosis-complicates care, management and prognosis Code Visit Inpatient E&M: 54917 Subs Hosp L3
--- NOTE | 2018-10-31 09:06 | NURSING ---
wound photo: left lateral lower leg
--- NOTE | 2018-10-31 09:07 | NURSING ---
wound photo: left medial lower leg
--- NOTE | 2018-10-31 09:21 | NURSING ---
vancomycin not on the unit. tube system checked. Luz primary RN, reports pharmacy will be sending.
[2018-10-31] MEDS: 0.9% Normal Saline 1,000 ML 100 ML IV (09:57)
--- NOTE | 2018-10-31 10:06 | CASEMGMT ---
SW let pt know that LW/POA forms are not on the file, SW let pt know and asked her to bring in the forms as able. PERCY Courtney
[2018-10-31] MEDS: Donepezil HCl 5 MG Tablet PO (10:53)
[2018-10-31] MEDS: Ferrous Sulfate 325 MG Tablet PO ×2 (10:53→16:20)
[2018-10-31] MEDS: DULoxetine Hcl 60 MG Capsule PO (10:54)
[2018-10-31] MEDS: Amiodarone 200 MG Tablet PO (10:54)
[2018-10-31] MEDS: Metoprolol Tartrate 50 MG Tablet PO ×2 (10:55→22:00)
[2018-10-31] MEDS: Gabapentin 600 MG Tablet PO ×2 (10:57→22:00)
[2018-10-31] MEDS: Pantoprazole Sodium 40 MG Tablet PO (10:58)
--- NOTE | 2018-10-31 11:04 | RAD_ITS ---
STUDY: X-RAY CHEST REASON FOR EXAM: Female, 73 years old. Shortness of breath. Cyanosis. Cellulitis. TECHNIQUE: Single AP portable view of the chest. COMPARISON: Comparison is made with prior study August 22, 2018. FINDINGS: EKG electrodes are seen. The lungs are clear and expanded. There is no demonstrated pleural abnormality. Sternal cerclage wires and vascular clips are present from a prior sternotomy and coronary artery bypass graft procedure (CABG). Normal mediastinum and alee. Normal visualized pulmonary arteries. There is atherosclerotic calcification of the aortic arch with tortuosity. Normal visualized thoracic spine. There is degenerative osteoarthritis of the bilateral shoulders. There is no demonstrated abnormality of the visualized soft tissue structures of the upper abdomen. RAD/Chest 1 View (Portable) IMPRESSION: No acute abnormality is seen. Electronically Signed: Milo Hughes, at 12:44 EDT , Service support ,
--- NOTE | 2018-10-31 11:09 | NURSING ---
10/31/[address] James moeller talking to pt regarding change in condition, plan of care.
--- NOTE | 2018-10-31 11:10 | NURSING ---
10/31/18 1102 Mark,RN bedside to see pt. VS taken-stable, pt alert, oriented x3, c/o itching and intermittent SOB- aware per pt
--- NOTE | 2018-10-31 11:14 | NURSING ---
10/31/18 1111 Luz Primary RN bedside-updated on pts change in condition-pt with noticeable facial flushing/redness, b/l upper extremity redness-Vanc stopped. RT bedside for ABG, pt placed on telemetry per orders
[2018-10-31] MEDS: DiphenhydrAMINE 50 MG/ML Syringe 25 MG IV ×3 (11:25→23:48)
--- NOTE | 2018-10-31 11:29 | EKG12_ITS ---
Test Reason : Blood Pressure : / mmHG Vent. Rate : 063 BPM Atrial Rate : 063 BPM P-R Int : 166 ms QRS Dur : 086 ms QT Int : 412 ms P-R-T Axes : 044 012 114 degrees QTc Int : 421 ms Normal sinus rhythm Normal ECG When compared with ECG of 09-APR-2018 10:36, Nonspecific T wave abnormality no longer evident in Anterior leads QT has shortened Confirmed by SILVIA STUART ([id number]), magazine editor SHAHNAZ MARINA ([id number]) on 11/12/2018 1:25:38 PM Referred By: ANGUS Confirmed By:SILVIA TSUART
[2018-10-31] MEDS: MethylPREDNISolone 125 MG/2 ML Vial IV (11:30)
[2018-10-31 11:40] LABS: Allen Test POS; Base Excess 2 mmol/L (-2 to +2); Bicarbonate 26.6 mmol/L (22-26); Blood Gas Specimen Type ART; O2 Delivery Device Nasal Can; PO2 85 mmHG (75-100); SITE R Radial; SO2 97 % (95-99); Time Given 1140; Total Carbon Dioxide 28 mmol/L; pCO2 41.6 mmHg (35-45); pH 7.41 (7.35-7.45)
[2018-10-31 11:41] LABS: M R Staph aureus DNA By PCR Negative (Negative); Staph aureus DNA By PCR NEGATIVE (Negative)
[2018-10-31 11:42] LABS: Probe Check PASS; Specimen Processing Control PASS
--- NOTE | 2018-10-31 11:54 | NURSING ---
10/31/18 1152 bedside discussing transfer to PCU, plan of care-notified pt's BP 173/68. gives verbal order to restart the Vancomycin at a slower rate. Pt ax0x3, answers questions and follow commands, denies anyy SOB, chest pain-pt reports she is feeling a little better, just cold. Pt with decreased facial and b/l upper ext flushing/redness. Will continue to monitor closely
[2018-10-31 12:05] LABS: Bedside Glucose 92 mg/dL (70-110)
--- NOTE | 2018-10-31 12:08 | NURSING ---
10/31/18 IV Vanc restarted per Luz, Primary RN-pt remains in bedside chair, alert x O x3 talking with nurse and nursing scheduler-pt denies any SOB, chest pain, itching or any other concerns-pt states, I'm just cold-additional blanket provided. Call light in reach
--- NOTE | 2018-10-31 12:12 | NURSING ---
10/31/18 1208-Luz Escobar RN reports Pepcid still not on the Unit-she will notify doctor of nursing practice/instructor when medication is available for administration
--- NOTE | 2018-10-31 12:26 | NURSING ---
10/31/18 1020 Shawn Escobar,RN reports she will administer IV Vanc while this Nurse attempts an IV in another room
--- NOTE | 2018-10-31 13:45 | CASEMGMT ---
RN ROSIBEL TEMPERATURE REGULATOR PYROMETER CM to room to meet with patient for initial transition planning/care coordination assessment. INÉS GLEASON introduced self and role at [facility]. Pt voices understanding and consents to assessment at this time. Pt resting in bed in no distress at this time. Pt is A/O at this time and answers all questions appropriately. Care providers, pharmacy, and demographics verified/updated at this time. PCP: Salvador Specialists: [facility]--urology, Wound Clinic Preferred Pharmacy: [facility] Insurance: [place] [facility] Prescription Benefit: Yes Living Will/HPOA: Has both LW and HCPOA, who is her Dtr-in-law, Best Ya LNOK: SonFarhat Living Arrangements: Lives in one-story home w/1 step to enter. Lives with sister, son, and dtr-in-law, Best. States is independent with bathing/personal care. Son assists with medication mgmt and helps with meals. Pt's sister helps her with grocery shopping. Pt states she does her own laundry, which she enjoys. Transportation: Pt states she does not drive. States her sister provides most of the transportation. Sister will drive her home @ D/C DME: [facility] has the following DME: shower chair, raised toilet seat, rails/grab bars, rollator for household distances, electric scooter for longer distances, glucometer--states it is working properly and she has all the needed supplies for it. Has CPAP she got through [facility], but [facility]. Pt states no need for further DME at this time. HHC/SNF: Hx of [facility] about 2 yrs ago. [facility] has had HHC in the past but does not remember the name of the agency. Pt wishes to return home and states has no concerns with going home at time of discharge. She states she would like to have HHC again. Given list of local HHC agencies and pt states she prefers [facility], and [facility]. Call placed to Lisa @ [facility] and referral made. She states they are able to accept pt. CM to follow for any discharge planning/needs. Pt voices no further concerns/needs at this time. Advised pt to ask for CM if any further questions/concerns/needs arise. Voices understanding. PLAN: Home w/[facility] HHC: pen[facility]entiary, PT/OT and family support. Jethro GOMEZ RN CM
[2018-10-31] MEDS: 0.9% NaCl Peripheral Flush Adult/Peds IV ×3 (13:52→23:48)
[2018-10-31] MEDS: Furosemide 40 MG/4 ML Vial IV (13:52)
[2018-10-31] MEDS: Rivaroxaban 15 MG Tablet PO (16:20)
[2018-10-31 17:11] LABS: Bedside Glucose 200 mg/dL (70-110)
[2018-10-31] MEDS: MethylPREDNISolone 125 MG/2 ML Vial 60 MG IV (22:01)
[2018-10-31] MEDS: Magnesium Oxide 400 MG Tablet PO (22:03)
[2018-10-31 23:35] LABS: Bedside Glucose 183 mg/dL (70-110)
[2018-11-01] VITALS (14 sets, daily range): BP systolic 121–176; BP diastolic 67–76; PULSE 54–78; RESP 16–18; TEMP 36.6–37.1; O2SAT 96–100
[2018-11-01 04:58] LABS: Hematocrit 40.5 % (37-47); Hemoglobin 12.4 g/dL (12.0-15.0); Mean Corp Hgb Conc 30.6 g/dL (32-36); Mean Corpuscular Hgb 28.9 pg (27.0-32.0); Mean Corpuscular Volume 94.4 fL (81-99); Mean Platelet Vol. 10.4 fl (6.2-12.0); Platelet Count 171 K/mm3 (150-450); RBC Distribution Width CV 15.4 % (11.6-14.6); RBC Distribution Width SD 52.7 fl (35.1-43.9); Red Blood Count 4.29 M/mm3 (4.2-5.4); White Blood Count 18.3 K/mm3 (4.4-11.0)
[2018-11-01] MEDS: DiphenhydrAMINE 50 MG/ML Syringe 25 MG IV ×3 (05:22→22:47)
[2018-11-01] MEDS: MethylPREDNISolone 125 MG/2 ML Vial 60 MG IV ×2 (05:25→14:29)
[2018-11-01] MEDS: Menthol/Lanolin/Calamine/Znox 113 GM Tube 1 APPLIC TOPICAL ×3 (05:28→22:51)
[2018-11-01] MEDS: Nystatin Powder 15gm Bottle 1 APPLIC TOPICAL ×3 (05:28→22:51)
[2018-11-01 05:30] LABS: ALB/GLOB Ratio 0.6 RATIO (0.9-2.4); AST(SGOT) 15 U/L (15-37); Alanine Aminotransfer ALT/SGPT 14 U/L (13-56); Albumin, Serum 2.1 g/dL (3.2-5.0); Alkaline Phosphatase 80 U/L (45-117); Anion Gap 7 (5-15); BUN 31 mg/dL (7-18); Chloride 110 mmol/L (98-107); Creatinine, Serum 1.24 mg/dL (0.55-1.02); EST Glomerular Filtration Rate 45 mL/min (>60); Est Glom Filt Rate - Afr Amer 54 mL/min (>60); Estimated Creatinine Clearance 31.48 ml/min; Globulin 3.4 g/dL (2.2-4.2); Glucose 159 mg/dL (74-106); Magnesium 2.2 mg/dL (1.6-2.6); Phosphorus 3.6 mg/dL (2.5-4.9); Potassium 3.9 mmol/L (3.5-5.1); Protein, Total 5.5 g/dL (6.4-8.2); Sodium Level 145 mmol/L (136-145)
[2018-11-01 06:55] LABS: Bedside Glucose 162 mg/dL (70-110)
[2018-11-01] MEDS: Vancomycin IV 1,000 MG/200 ML BAG 200 MG IV (07:45)
[2018-11-01] MEDS: Ferrous Sulfate 325 MG Tablet PO ×2 (07:46→16:36)
[2018-11-01] MEDS: traMADol 50 MG Tablet PO (07:46)
[2018-11-01] MEDS: Furosemide 40 MG Tablet 60 MG PO (10:18)
[2018-11-01] MEDS: Metoprolol Tartrate 50 MG Tablet PO ×2 (10:19→22:49)
[2018-11-01] MEDS: Amiodarone 200 MG Tablet PO (10:19)
[2018-11-01] MEDS: Magnesium Oxide 400 MG Tablet PO ×2 (10:19→22:49)
[2018-11-01] MEDS: Pantoprazole Sodium 40 MG Tablet PO (10:19)
[2018-11-01] MEDS: Gabapentin 600 MG Tablet PO ×2 (10:19→22:49)
[2018-11-01] MEDS: Donepezil HCl 5 MG Tablet PO (10:19)
[2018-11-01] MEDS: DULoxetine Hcl 60 MG Capsule PO (10:19)
--- NOTE | 2018-11-01 11:57 | CON.PCM_ITS ---
Problem List (1) Cellulitis Status: Acute Reason for Consult: cellulitis Consulted by: Dr. Ramirez History of Present Illness: The patient is a 73 year old F with chronic LLE wound, recent dx with esbl complicated uti. Had several weeks of dysuria, had been following with Dr. Bear. I saw her last week, ordered fosfomycin. She took one dose, and dysuria nearly completely resolved. About 2-3 days ago, started with acute onset diffuse LLE pain, redness, swelling, induration. No drainage from ulcer. No trauma to her leg. Mild fever, came to ED, given clinda, then cefazolin. Had diffuse rash, so changed to vanc/aztreonam. Given steroids, feeling better. Leg improving, less red and sore today. Full ROS performed and neg except as noted above. - Medical History Past Medical History (Chronic Problems): Chronic Problems (Last Updated 10/28/18 @ 14:38 by Lisa Hutton) Essential hypertension (Chronic) Type 2 diabetes mellitus (Chronic) Venous insufficiency of both lower extremities (Chronic) Open wound of right knee (Chronic) Traumatic,penetratiung with fat layer exposed. Bilateral lower extremity edema (Chronic) Diastolic CHF (Chronic) Iron deficiency anemia (Chronic) etiology unknown Ulcer of right lower extremity with fat layer exposed (Chronic) Ulcer of right foot with fat layer exposed (Chronic) Ulcer of left lower extremity with fat layer exposed (Chronic) PVD (peripheral vascular disease) (Chronic) Edema, lower extremity (Chronic) Presence of stent in coronary artery (Chronic ~08/29/12) PTCA/stent to CX; PTCA/Stent PTCA/stent to prox RCA 05/06; PTCA/LILY in mid to distal RCA 08/29/12 Atherosclerotic heart disease of [place] coronary artery without angina pectoris (Chronic) PTCA/stent to CX; PTCA/Stent PTCA/stent to prox RCA 05/06; PTCA/LILY in mid to distal RCA 08/29/12; CABG x2 ARREGUIN tp LAD and SVG to OM2 01/02/11 S/P CABG (coronary artery bypass graft) (Chronic ~01/02/11) CABG x2 ARREGUIN tp LAD and SVG to OM2 01/02/11 Paroxysmal atrial fibrillation (Chronic) Hyperlipidemia (Chronic) Allergies/Adverse Reactions: Allergies codeine Allergy (Unknown, Verified 10/30/18 17:18) Hives cefazolin Allergy (Verified 10/31/18 06:58) Rash ciprofloxacin [From Cipro] Allergy (Verified 10/30/18 17:18) Hives ciprofloxacin HCl [From Cipro] Allergy (Verified 10/30/18 17:18) Hives Latex, Natural Rubber Allergy (Verified 10/30/18 17:18) Rash Penicillins [PCN] Allergy (Verified 10/30/18 17:18) Hives adhesive tape Adverse Reaction (Verified 10/30/18 17:18) Rash Home Medications: Ambulatory Orders Medication Instructions Recorded Amiodarone HCl 200 mg PO DAILY 04/09/18 Duloxetine HCl 60 mg PO DAILY 04/09/18 Magnesium Oxide [Mag-Ox 400] 400 mg PO BID 04/09/18 Metoprolol Tartrate [Lopressor 50 mg PO BID 04/09/18 (beta man)] Pantoprazole Sodium [Protonix] 40 mg PO DAILY 04/09/18 Rivaroxaban [Xarelto] 15 mg PO DAILY 04/09/18 Budesonide Inhaler 180 mcg 1 puff INHALATION BID #1 inhaler 04/17/18 [Pulmicort Inhaler 180 mcg] Docusate Sodium 100 mg PO DAILY PRN PRN 05/22/18 Ergocalciferol (Vitamin D2) 50,000 unit PO QWEEK 05/22/18 [Vitamin D2] Donepezil HCl 5 mg PO DAILY 08/19/18 Potassium Chloride [Klor-Con M20] 20 meq PO BID 08/19/18 traMADol [Ultram] 50 mg PO BID PRN PRN 08/19/18 Acetaminophen [Tylenol Tablet] 650 mg PO Q6H PRN PRN tab 08/23/18 Furosemide [Lasix] 60 mg PO DAILY #1 tab 08/23/18 ferrous sulfate 325 mg (65 mg 325 mg PO BID 09/25/18 iron) tablet,delayed release gabapentin 300 mg capsule 600 mg PO BID cap 09/25/18 Fosfomycin Tromethamine [Monurol] 3 gm PO Q3D 10/30/18 - Social History SMOKING STATUS:: Former smoker Vital Signs Temp Pulse Resp BP Pulse Ox 98.4 F 65 18 121/76 H 96 11/01/18 10:23 11/01/18 10:52 11/01/18 10:23 11/01/18 10:23 11/01/18 10:23 Oxygen Flow Rate (L/min) 2 Oxygen Delivery Method Room Air Weight: 91.2 kg Body Mass Index (BMI) 36.8 Finger Stick Blood Glucose 187 Microbiology Past 72 Hours 10/31/18 08:45 Gram Stain - Final Wound - Leg, Left Wound Culture - Preliminary No growth-Final to follow Laboratory Tests Past 24 Hrs 10/31/18 10/31/18 10/31/18 05:58 13:26 16:38 WBC RBC Hgb Hct MCV MCH MCHC RDW Std Deviation RDW Coeff of Carissa Plt Count MPV Sodium Potassium Chloride Carbon Dioxide Anion Gap BUN Creatinine Estim Creat Clear Calc Est GFR (MDRD) Af Amer Est GFR (MDRD) Non-Af BUN/Creatinine Ratio Glucose Calcium Phosphorus Magnesium Total Bilirubin AST ALT Alkaline Phosphatase Troponin I < 0.015 < 0.015 B-Natriuretic Peptide 653.0 H Total Protein Albumin Globulin Albumin/Globulin Ratio 10/31/18 11/01/18 11/01/18 19:20 04:48 04:48 WBC 18.3 H RBC 4.29 Hgb 12.4 Hct 40.5 MCV 94.4 MCH 28.9 MCHC 30.6 L RDW Std Deviation 52.7 H RDW Coeff of Carissa 15.4 H Plt Count 171 MPV 10.4 Sodium 145 Potassium 3.9 Chloride 110 H Carbon Dioxide 28.0 Anion Gap 7 BUN 31 H Creatinine 1.24 H Estim Creat Clear Calc 31.48 Est GFR (MDRD) Af Amer 54 L Est GFR (MDRD) Non-Af 45 L BUN/Creatinine Ratio 25.0 H Glucose 159 H Calcium 9.0 Phosphorus 3.6 Magnesium 2.2 Total Bilirubin 0.40 AST 15 ALT 14 Alkaline Phosphatase 80 Troponin I < 0.015 B-Natriuretic Peptide Total Protein 5.5 L Albumin 2.1 L Globulin 3.4 Albumin/Globulin Ratio 0.6 L - Other Studies Radiology: [] reviewed Other Studies: [] Route of nutrition/ use of supplements: [] Nutritional Intake: [] IV Site: [] [place] Catheter: [] - Physical Exam General: Alert, Oriented x3, Cooperative, No apparent distress HEENT: Atraumatic, PERRLA, EOMI Neck: Supple, No Nodes Lungs: Clear to auscultation, Normal air movement Cardiovascular: Regular rate, Regular Rhythm, No murmurs Abdomen: Soft, Non Tender, Non-Distended Extremities: Edema Skin: Ulcer/ Wound - reviewed photo, - - LLE with redness starting to fade, still warmth IV Site: Peripheral, without redness Musculoskeletal: No Tenderness to Palpation of Joints or Extremities Neurological: Cranial nerves II-XII grossly intact - Assessment/Plan Antibiotics: [] Assessment/Plan: [] LLE cellulitis with leukocytosis and lactic acidosis - MRSA pcr neg, no purulence on gram stain of wound. Will narrow abx to cefepime which she has tolerated in the past. Ucx here is neg, and dysuria nearly completely resolved, so I think the single dose of fosfomycin has adequately treated her recent esbl uti. Probably can stop steroids soon given her rapid improvement in the allergic reaction to cefazolin. If she continues to improve, tentative plan for home would be po omnicef. She tolerated ceftriaxone here a few years ago. Will follow, thank you.
[2018-11-01 12:05] LABS: Bedside Glucose 218 mg/dL (70-110)
--- NOTE | 2018-11-01 14:37 | CASEMGMT ---
Pt state that at discharge she would prefer [facility] now instead of [facility]. Lisa at [facility] informed at this time, voices understanding. Referral faxed to [facility] at this time and call to intake to notify of pt at this time, voices understanding. [facility] was notified that per Dr. Ramirez, pt will be here through the weekend and this RN CM advised that will notify them when pt ready for discharge, voice understanding. [facility] is requesting F2F documentation at discharge. Alexander RN CM
[2018-11-01] MEDS: Insulin Lispro 100 UNIT/ML INSULN.PEN SC ×2 (16:35→22:46)
[2018-11-01] MEDS: Rivaroxaban 15 MG Tablet PO (16:36)
--- NOTE | 2018-11-01 16:58 | PCM.PROGNOTE ---
Subjective: All events the past 24 hours been reviewed. She is c/o blood in the toilet bowl and on the TP for past 2 days. No hx of hemorrhoids and she denies any rectal pain. The stool is brown and the toilet water is mixed with BR blood on my review. She has no abdominal pain and no nausea. There is less pain in the LLE today. Objective: PHYSICAL EXAM: GENERAL: alert, oriented X 3, Cooperative, NAD, the lips are less swollen and the facial erythema has resolved. ORAL: moist mucosa, no mucosal lesions NECK: No JVD, supple, trachea midline LUNGS: CTA, symmetric chest expansion, diminished, no wheezing today and much better air exchange HEART: RRR, Normal S1 and S2, no rub, no gallop ABDOMEN: soft, NT, ND, BS present, no guarding with palpation, obese EXTREMITIES: less pitting in the LLE today, the erythema is beginning to fade, there is still significant warmth to touch SKIN: No rashes today and denies pruritus, no breakdown NEUROLOGIC: no focal neurologic deficits PSYCH: appropriate, normal affect, pleasant - Physical Exam Vital Signs Temp Pulse Resp BP Pulse Ox 97.8 F 62 18 139/69 H 99 11/01/18 16:28 11/01/18 16:28 11/01/18 16:28 11/01/18 16:28 11/01/18 16:28 Oxygen Flow Rate (L/min) 2 Oxygen Delivery Method Room Air Weight: 201 lb 0.985 oz Body Mass Index (BMI) 36.8 Finger Stick Blood Glucose 187 Intake and Output for Last 24 Hours 10/30/18 10/31/18 11/01/18 23:59 23:59 23:59 Intake Total 264 / 264 2156.67 / 2156.67 920 / 920 Output Total 200 / 200 Balance 264 / 264 2156.67 / 1956.67 720 / 720 Microbiology Past 72 Hours 10/31/18 08:45 Gram Stain - Final Wound - Leg, Left Wound Culture - Preliminary No growth-Final to follow Laboratory Tests Past 24 Hrs 10/31/18 10/31/18 11/01/18 16:38 19:20 04:48 WBC 18.3 H RBC 4.29 Hgb 12.4 Hct 40.5 MCV 94.4 MCH 28.9 MCHC 30.6 L RDW Std Deviation 52.7 H RDW Coeff of Carissa 15.4 H Plt Count 171 MPV 10.4 Sodium Potassium Chloride Carbon Dioxide Anion Gap BUN Creatinine Estim Creat Clear Calc Est GFR (MDRD) Af Amer Est GFR (MDRD) Non-Af BUN/Creatinine Ratio Glucose Calcium Phosphorus Magnesium Total Bilirubin AST ALT Alkaline Phosphatase Troponin I < 0.015 < 0.015 Total Protein Albumin Globulin Albumin/Globulin Ratio 11/01/18 04:48 WBC RBC Hgb Hct MCV MCH MCHC RDW Std Deviation RDW Coeff of Carissa Plt Count MPV Sodium 145 Potassium 3.9 Chloride 110 H Carbon Dioxide 28.0 Anion Gap 7 BUN 31 H Creatinine 1.24 H Estim Creat Clear Calc 31.48 Est GFR (MDRD) Af Amer 54 L Est GFR (MDRD) Non-Af 45 L BUN/Creatinine Ratio 25.0 H Glucose 159 H Calcium 9.0 Phosphorus 3.6 Magnesium 2.2 Total Bilirubin 0.40 AST 15 ALT 14 Alkaline Phosphatase 80 Troponin I Total Protein 5.5 L Albumin 2.1 L Globulin 3.4 Albumin/Globulin Ratio 0.6 L POC Glucose 11/01/18 11/01/18 10/31/18 11:55 06:43 22:58 POC Glucose 218 H 162 H 183 H 10/31/18 17:01 POC Glucose 200 H Medical Necessity - Tobacco Use Smoking Status: Former smoker Tobacco Use: Cigarettes Assessment/Plan All Active Problems (Last Updated 10/28/18 @ 14:38 by Lisa Hutton) Acute diastolic (congestive) heart failure (Acute) Acute sepsis (Acute) Allergic dermatitis (Acute) Angioedema (Acute) Adverse drug effect (Acute) Wound of left lower extremity (Acute) Cellulitis (Acute) Metabolic encephalopathy (Resolved) Ulcer of left lower extremity with fat layer exposed (Resolved) Cognitive impairment (Resolved) Open wound of left elbow (Resolved) Open wound of right elbow (Resolved) UTI (urinary tract infection) (Resolved) Wound of right foot (Resolved) Impressions 1. Acute sepsis secondary to acute cellulitis of the left lower extremity with temp greater than 100.4 ?F, white blood cell count of 25.6, lactic acid 3.5. 2. Cellulitis of the left lower extremity - Aztreonam and Vanco. consult Dr. Brown. MRSA and staph aureus protein are negative. 3. Allergic dermatitis likely secondary to Ancef with acute respiratory insufficiency with hypoxemia and cyanotic hands and feet....hemodynamically stable. she has been seen by Dr. Brown and he has started Cefepime which she seems to be tolerating without rash, SOB or pruritus 4. pulmonary edema with a BNP of 653. Lasix IV given 5. Coronary artery disease with prior stents and CABG x2 vessels 6. Diabetes mellitus type 2/hypertension/hyperlipidemia/obesity/chronic diastolic congestive heart failure?peripheral vascular disease/history of VTE/LAURITA/PAF/multiple sclerosis-complicates care, management and prognosis 7. Hematochezia - suspect hemorrhoidal dz since she has also had this in the past when she has a hard BM Stool softener. anusol HC BID x 5 days. Recheck HH in AM. Continue Xarelto Reviewed Dr. Brown's consult and appreciate his input. She has been transition from Vanco and Aztreonam to cefepime which she tolerated in August without rash, hives or SOB. Code Visit Inpatient E&M: 66137 Subs Hosp L2
[2018-11-01 18:02] LABS: Bedside Glucose 165 mg/dL (70-110)
[2018-11-01] MEDS: Famotidine 20 MG Tablet PO (22:56)
[2018-11-01] MEDS: Hydrocortisone 25 MG Suppository RECTAL (22:56)
[2018-11-01 23:21] LABS: Bedside Glucose 183 mg/dL (70-110)
[2018-11-02] VITALS (10 sets, daily range): BP systolic 135–155; BP diastolic 70–83; PULSE 55–76; RESP 16–18; TEMP 36.4–36.7; O2SAT 3–94
[2018-11-02] MEDS: Nystatin Powder 15gm Bottle 1 APPLIC TOPICAL ×2 (04:48→13:00)
[2018-11-02] MEDS: DiphenhydrAMINE 50 MG/ML Syringe 25 MG IV ×2 (04:48→11:37)
[2018-11-02] MEDS: Menthol/Lanolin/Calamine/Znox 113 GM Tube 1 APPLIC TOPICAL ×2 (04:49→13:00)
[2018-11-02] MEDS: Insulin Lispro 100 UNIT/ML INSULN.PEN SC ×2 (06:36→11:48)
[2018-11-02 06:40] LABS: Bedside Glucose 152 mg/dL (70-110)
[2018-11-02 07:05] LABS: Hematocrit 38.1 % (37-47); Hemoglobin 11.6 g/dL (12.0-15.0)
[2018-11-02] MEDS: Ferrous Sulfate 325 MG Tablet PO (08:43)
[2018-11-02] MEDS: Methylcellulose 2 GM Bottle PO (10:10)
[2018-11-02] MEDS: Donepezil HCl 5 MG Tablet PO (10:10)
[2018-11-02] MEDS: predniSONE 20 MG Tablet 40 MG PO (10:10)
[2018-11-02] MEDS: Hydrocortisone 25 MG Suppository RECTAL (10:10)
[2018-11-02] MEDS: Amiodarone 200 MG Tablet PO (10:11)
[2018-11-02] MEDS: DULoxetine Hcl 60 MG Capsule PO (10:11)
[2018-11-02] MEDS: Furosemide 40 MG Tablet 60 MG PO (10:11)
[2018-11-02] MEDS: Metoprolol Tartrate 50 MG Tablet PO (10:12)
[2018-11-02] MEDS: Magnesium Oxide 400 MG Tablet PO (10:13)
[2018-11-02] MEDS: Pantoprazole Sodium 40 MG Tablet PO (10:14)
[2018-11-02] MEDS: Gabapentin 600 MG Tablet PO (10:14)
[2018-11-02 11:35] LABS: Bedside Glucose 180 mg/dL (70-110)
--- NOTE | 2018-11-02 14:56 | NURSING ---
This RN taking over care at this time
--- NOTE | 2018-11-02 14:57 | DCINST_ITS ---
- Discharge Diagnoses Current Active Problems: sepsis due to cellulitis Cellulitis of the LLE Rash and angioedema due to allergic rx to Ancef You will use the following diet at home:: Calorie/Carbohydrate Controlled (specify 1200, 1400, etc), Cardiac Your food should be the consistency of: Regular Your liquids should be the consistency of: Regular/Thin Keep extremity elevated above heart level: Legs Call your doctor if you observe: Fever of 101 or Higher, Shortness of breath, Dizziness, Fainting spells, Swelling in the ankles, Chest pain, - - Call your PCP if severe diarrhea ( > 5 stools a day), painful sores in the mouth, painful swallowing, rash or itching. Taking a probiotic such as Lactobacillus or Kefir can help with loose stools while taking antibiotics. Allergies/Adverse Reactions: Allergies codeine Allergy (Unknown, Verified 10/30/18 17:18) Hives cefazolin Allergy (Verified 10/31/18 06:58) Rash ciprofloxacin [From Cipro] Allergy (Verified 10/30/18 17:18) Hives ciprofloxacin HCl [From Cipro] Allergy (Verified 10/30/18 17:18) Hives Latex, Natural Rubber Allergy (Verified 10/30/18 17:18) Rash Penicillins [PCN] Allergy (Verified 10/30/18 17:18) Hives adhesive tape Adverse Reaction (Verified 10/30/18 17:18) Rash Medications to take at Discharge Amiodarone HCl 200 mg PO DAILY 04/09/18 Duloxetine HCl 60 mg PO DAILY 04/09/18 Magnesium Oxide [Mag-Ox 400] 400 mg PO BID 04/09/18 Metoprolol Tartrate [Lopressor (beta man)] 50 mg PO BID 04/09/18 Pantoprazole Sodium [Protonix] 40 mg PO DAILY 04/09/18 Rivaroxaban [Xarelto] 15 mg PO DAILY 04/09/18 Budesonide Inhaler 180 mcg [Pulmicort Inhaler 180 mcg] 1 puff INHALATION BID #1 inhaler 04/17/18 Docusate Sodium 100 mg PO DAILY PRN PRN 05/22/18 Ergocalciferol (Vitamin D2) [Vitamin D2] 50,000 unit PO QWEEK 05/22/18 Donepezil HCl 5 mg PO DAILY 08/19/18 Potassium Chloride [Klor-Con M20] 20 meq PO BID 08/19/18 traMADol [Ultram] 50 mg PO BID PRN PRN 08/19/18 Acetaminophen [Tylenol Tablet] 650 mg PO Q6H PRN PRN tab 08/23/18 Furosemide [Lasix] 60 mg PO DAILY #1 tab 08/23/18 ferrous sulfate 325 mg (65 mg iron) tablet,delayed release 325 mg PO BID 09/25/18 gabapentin 300 mg capsule 600 mg PO BID cap 09/25/18 Cefdinir [Omnicef [equiv]] 300 mg PO DAILY #7 cap 11/02/18 Hydrocortisone [Anusol Hc] 25 mg RECTAL BID #6 suppos. 11/02/18 The following prescriptions were given: Hydrocortisone [Anusol Hc] 25 mg RECTAL BID #6 suppos. Transmission Status: Pending to [id number] Cefdinir [Omnicef [equiv]] 300 mg PO DAILY #7 cap Transmission Status: Pending to [id number] Primary Care Physician: Octaviano Franco Chi, MD [Primary Care Provider] - Please follow up with your Primary Care Physician in: next week Test Results: Test results from this visit will be discussed in further detail at your follow- up appointment, if applicable. Proposed Discharge Date: 11/02/18
--- NOTE | 2018-11-02 15:06 | PCM.DC.SUM ---
Discharge Date and Diagnosis Date of Admission: 10/30/18 Date of Discharge: 11/02/18 - Primary Discharge Diagnosis Active and Suspected Problems (Last Updated 10/28/18 @ 14:38 by Lisa Hutton) Acute sepsis (Acute) due to cellulitis of the left lower extremity Cellulitis of the LLE - acute Allergic dermatitis (Acute) - due to Ancef Angioedema (Acute) Adverse drug effect (Acute) due to Ancef Acute respiratory insufficiency secondary to bronchospasm secondary to allergic reaction to Ancef Acute diastolic (congestive) heart failure (Acute) - resolved - Secondary Discharge Diagnosis Chronic Problems (Last Updated 10/28/18 @ 14:38 by Lisa Hutton) Grade I diastolic dysfunction (Chronic) Essential hypertension (Chronic) Type 2 diabetes mellitus (Chronic) Venous insufficiency of both lower extremities (Chronic) Open wound of right knee (Chronic) Traumatic,penetratiung with fat layer exposed. Bilateral lower extremity edema (Chronic) Diastolic CHF (Chronic) Iron deficiency anemia (Chronic) etiology unknown Ulcer of right lower extremity with fat layer exposed (Chronic) Ulcer of right foot with fat layer exposed (Chronic) Ulcer of left lower extremity with fat layer exposed (Chronic) PVD (peripheral vascular disease) (Chronic) Edema, lower extremity (Chronic) Presence of stent in coronary artery (Chronic ~08/29/12) PTCA/stent to CX; PTCA/Stent PTCA/stent to prox RCA 05/06; PTCA/LILY in mid to distal RCA 08/29/12 Atherosclerotic heart disease of [place] coronary artery without angina pectoris (Chronic) PTCA/stent to CX; PTCA/Stent PTCA/stent to prox RCA 05/06; PTCA/LILY in mid to distal RCA 08/29/12; CABG x2 ARREGUIN tp LAD and SVG to OM2 01/02/11 S/P CABG (coronary artery bypass graft) (Chronic ~01/02/11) CABG x2 ARREGUIN tp LAD and SVG to OM2 01/02/11 Paroxysmal atrial fibrillation (Chronic) Hyperlipidemia (Chronic) Hospital Course and Treatment Imaging Results: Clinical Impression(s) from Imaging Studies Chest X-Ray 10/31/18 11:04 IMPRESSION: No acute abnormality is seen. Electronically Signed: Milo Hughes, at 12:44 EDT , Service support , Laboratory Results - last 24 hr 11/01/18 11/01/18 11/02/18 16:30 22:40 05:30 Hgb 11.6 L Hct 38.1 POC Glucose 165 H 183 H 11/02/18 11/02/18 06:34 11:29 Hgb Hct POC Glucose 152 H 180 H Microbiology 10/30/18 18:32 Blood Culture (Wb) - Right Forearm Blood Culture - Preliminary No growth in 48 hours. 10/30/18 18:16 Blood Culture (Wb) - Left Wrist Blood Culture - Preliminary No growth in 48 hours. 10/31/18 08:45 Wound - Leg, Left Gram Stain - Final 10/31/18 08:45 Wound - Leg, Left Wound Culture - Preliminary No growth-Final to follow Consultations 10/30/18 20:41 Consult: Onc/Wound/materials management manager Routine Comment: Dr. Adalid Brown-infectious disease Operations: None Procedures: None Summary of Care Provided: The patient is a 73-year-old female with a past medical history of peripheral vascular disease, coronary artery disease with prior stents and CABG x2 vessels, type 2 diabetes mellitus, obesity, HTN, HLD, chronic wounds, diastolic congestive heart failure, peripheral vascular disease, history of VTE, multiple sclerosis, trigeminal neuralgia, obstructive sleep apnea and PAF who presented to the ED at [facility] on 10/30/2018 complaining of redness of the left lower extremity. Vital signs at presentation to the emergency room were temperature 99.2, pulse rate 80, blood pressure 186/76, respiratory rate 17 and she was 99% saturated on room air. CBC showed an elevated white blood cell count at 25.6 with a marked left shift. Hemoglobin was increased at 15.1 and platelets were within normal limits. Sodium was mildly decreased at 135 and the BUN was 20 with a creatinine of 1.35. Baseline creatinine in 2019 has ranged from 1.09-1.47. Initial lactic acid was 3.5 and the recheck was 2.1. Blood cultures x2 were sent to the lab from the emergency department. She was given clindamycin in the emergency department and admitted to the hospital and transitioned to cefazolin. She developed a pruritic rash after Ancef and it was discontinued, however she went on to develop swelling of the lips and tongue and bronchospasm causing acute hypoxic respiratory insufficiency and was transferred to the progressive care unit. She was started on Solu-Medrol, IV Benadryl and IV famotidine. She was transitioned to Vancomycin and Aztreonam. Dr. Brown was consulted for management of the antibiotics. She had tolerated cefepime and Rocephin in the past but in light of the severe consequences of the allergic reaction to Ancef I hesitated to start another cephalosporin. Swab of the wound drainage was negative for staph aureus and also negative for MRSA. Dr. Brown transitioned her to cefepime and vancomycin was discontinued. The wound culture had no growth aerobically. Blood cultures were negative x48 hours. On she denied shortness of breath. Auscultation of her lungs on that day revealed much better air exchange with no wheezing. The facial erythema had resolved and the swelling in the lips and tongue had decreased significantly. She had no rash and denied pruritus. She did complain of blood clots in her stool along with red blood in the bowl and on the toilet paper. She had had this in the past with hard bowel movements. This was presumed to be secondary to hemorrhoidal disease and she was started on Anusol HC suppositories and a stool softener. On 11/02/2018 she was afebrile with stable vital signs and her pulse ox on room air was 94%. She was discharged home on Cefdinir to complete 10 days of antibiotics. She was also given a prescription for Anusol HC suppositories. She was instructed to follow-up with Dr. Franco the following week. Alert and oriented x3, no apparent distress Lungs-clear to auscultation with good air exchange, no wheezes, no rales Heart-regular rate and rhythm, no gallop Abdomen-soft, nontender, nondistended, normal bowel sounds Palpation of the left lower extremity today reveals no increased warmth to touch and the erythema is now a light pinkish-purple. I was able to palpate fairly deeply without her experiencing pain today. - Physical Exam Vital Signs Temp Pulse Resp BP Pulse Ox 97.8 F 60 18 148/79 H 94 11/02/18 11:02 11/02/18 15:03 11/02/18 11:02 11/02/18 11:02 11/02/18 11:02 Oxygen Flow Rate (L/min) 4 Oxygen Delivery Method Room Air Weight: 201 lb 0.985 oz Body Mass Index (BMI) 36.8 Finger Stick Blood Glucose 187 Intake and Output for Last 24 Hours 10/31/18 11/01/18 11/02/18 23:59 23:59 23:59 Intake Total 2156.67 / 2156.67 1170 / 1170 550 / 550 Output Total 200 / 200 Balance 2156.67 / 1956.67 970 / 970 550 / 550 Microbiology Past 72 Hours 10/30/18 18:32 Blood Culture - Preliminary Blood Culture (Wb) - Right Forearm No growth in 48 hours. 10/30/18 18:16 Blood Culture - Preliminary Blood Culture (Wb) - Left Wrist No growth in 48 hours. 10/31/18 08:45 Gram Stain - Final Wound - Leg, Left Wound Culture - Preliminary No growth-Final to follow Laboratory Tests Past 24 Hrs 11/02/18 05:30 Hgb 11.6 L Hct 38.1 POC Glucose 11/02/18 11/02/18 11/01/18 11:29 06:34 22:40 POC Glucose 180 H 152 H 183 H 11/01/18 16:30 POC Glucose 165 H Keep extremity elevated above heart level: Legs Call your doctor if you observe: Fever of 101 or Higher, Shortness of breath, Dizziness, Fainting spells, Swelling in the ankles, Chest pain, - - Call your PCP if severe diarrhea ( > 5 stools a day), painful sores in the mouth, painful swallowing, rash or itching. Taking a probiotic such as Lactobacillus or Kefir can help with loose stools while taking antibiotics. Home Medications: Medications to take at Discharge Amiodarone HCl 200 mg PO DAILY 04/09/18 Duloxetine HCl 60 mg PO DAILY 04/09/18 Magnesium Oxide [Mag-Ox 400] 400 mg PO BID 04/09/18 Metoprolol Tartrate [Lopressor (beta man)] 50 mg PO BID 04/09/18 Pantoprazole Sodium [Protonix] 40 mg PO DAILY 04/09/18 Rivaroxaban [Xarelto] 15 mg PO DAILY 04/09/18 Budesonide Inhaler 180 mcg [Pulmicort Inhaler 180 mcg] 1 puff INHALATION BID #1 inhaler 04/17/18 Docusate Sodium 100 mg PO DAILY PRN PRN 05/22/18 Ergocalciferol (Vitamin D2) [Vitamin D2] 50,000 unit PO QWEEK 05/22/18 Donepezil HCl 5 mg PO DAILY 08/19/18 Potassium Chloride [Klor-Con M20] 20 meq PO BID 08/19/18 traMADol [Ultram] 50 mg PO BID PRN PRN 08/19/18 Acetaminophen [Tylenol Tablet] 650 mg PO Q6H PRN PRN tab 08/23/18 Furosemide [Lasix] 60 mg PO DAILY #1 tab 08/23/18 ferrous sulfate 325 mg (65 mg iron) tablet,delayed release 325 mg PO BID 09/25/18 gabapentin 300 mg capsule 600 mg PO BID cap 09/25/18 Cefdinir [Omnicef [equiv]] 300 mg PO DAILY #7 cap 11/02/18 Hydrocortisone [Anusol Hc] 25 mg RECTAL BID #6 suppos. 11/02/18 Following Prescrptions Were Given to Patient: Hydrocortisone [Anusol Hc] 25 mg RECTAL BID #6 suppos. Transmission Status: Received by [facility] [id number] Cefdinir [Omnicef [equiv]] 300 mg PO DAILY #7 cap Transmission Status: Received by [facility] [id number] Primary Care Physician: Octaviano Franco Chi, MD [Primary Care Provider] - Please follow up with your Primary Care Physician in: next week Disposition: Home Minutes spent on discharge:: 30 Patient Condition:: Good Medical Necessity - Tobacco Use Smoking Status: Former smoker Tobacco Use: Non-smoker Meaningful Use Info Meaningful Use Diagnoses (Choose all that apply): CHF - CHF JASMINE/ARB ordered at discharge?: No Reason JASMINE/ARB not ordered?: Worsening renal disease Documented LVEF (%): 65 Code Visit Inpatient E&M: 60296 Disch Hosp
--- NOTE | 2018-11-04 15:26 | CASEMGMT ---
[facility] notified that pt was discharge on 11/02/18, voices understanding and states she will notify intake. D/C summary and instructions faxed to [facility] at this time. Alexander CONTE CM
--- NOTE | 2018-11-04 16:53 | CASEMGMT ---
INÉS GLEASON Discharge Follow-Up Phone Call. Lace:???13? Strata: 4 Discharge Date:?11/02/18 Adm Dx:?Cellulitis w/sepsis, Acute Drug Rxn, Acute Resp Failure Attempted discharge follow-up phone call. No answer. Left message for pt to return phone call to LOCK STITCH CHANNELERDigna CONTE CM, if she has any questions/concerns about the discharge instructions, medications, or ?follow-up appts. Phone number provided. Jethro GOMEZ RN, CM
== END 2018-11-02 15:54 | disposition home or self-care (01) | DRG 603 ==
LOC: ED 18:08 → MS3 20:27 → PCU 10-31 14:09
PROVIDERS: Admitting Provider Family Medicine; Emergency Provider Emergency Medicine; Family Provider Family Medicine Geriatric Medicine; PCP Family Medicine Geriatric Medicine; Visit Provider Internal Medicine
DX: L03.116 Cellulitis of left lower limb (principal); N39.0 Urinary tract infection, site not specified; Z68.41 Body mass index [BMI] 40.0-44.9, adult; K92.1 Melena; I50.32 Chronic diastolic (congestive) heart failure; T36.1X5A Adverse effect of cephalosporins and other beta-lactam antibiotics, initial encounter; L23.9 Allergic contact dermatitis, unspecified cause; T78.3XXA Angioneurotic edema, initial encounter; J98.01 Acute bronchospasm; R06.89 Other abnormalities of breathing; I11.0 Hypertensive heart disease with heart failure; E55.9 Vitamin D deficiency, unspecified; I48.0 Paroxysmal atrial fibrillation; I25.10 Atherosclerotic heart disease of native coronary artery without angina pectoris; E78.00 Pure hypercholesterolemia, unspecified; E11.622 Type 2 diabetes mellitus with other skin ulcer; I48.91 Unspecified atrial fibrillation; I87.2 Venous insufficiency (chronic) (peripheral); D50.9 Iron deficiency anemia, unspecified; E11.51 Type 2 diabetes mellitus with diabetic peripheral angiopathy without gangrene; Z95.1 Presence of aortocoronary bypass graft; Z95.5 Presence of coronary angioplasty implant and graft; E78.5 Hyperlipidemia, unspecified; G47.33 Obstructive sleep apnea (adult) (pediatric); Z79.899 Other long term (current) drug therapy; Z79.02 Long term (current) use of antithrombotics/antiplatelets; J44.9 Chronic obstructive pulmonary disease, unspecified; F32.9 Major depressive disorder, single episode, unspecified; F41.9 Anxiety disorder, unspecified; F03.90 Unspecified dementia, unspecified severity, without behavioral disturbance, psychotic disturbance, mood disturbance, and anxiety; Z66 Do not resuscitate; E66.9 Obesity, unspecified; G35 Multiple sclerosis; G50.0 Trigeminal neuralgia; Z87.891 Personal history of nicotine dependence; R09.02 Hypoxemia; R23.0 Cyanosis; Z86.718 Personal history of other venous thrombosis and embolism
CPT/HCPCS: 36415; 36600; 71045; 80048; 80053; 82306; 82803; 82962; 83605; 83735; 83880; 84100; 84443; 84484; 85014; 85018; 85025; 85027; 87040; 87070; 87086; 87088; 87205; 87640; 93005; 94640; 97110; 97116; 97162; 97166; 97530; 97535; 97802; 99284; J7030; J7050; A4216; J1940; J3490

== ENCOUNTER → 2018-10-30 | Outpatient (CLI) | payer MEDICARE, SELFPAY ==
[2018-10-24 12:00] VITALS: BMI 38.5
[2018-10-30 15:43] LABS: Absolute Lymphocyte Count 1.32 X10^3/uL (0.83-4.51); Basophil# 0.07 X10^3/uL; Basophil% 0.2 % (0-1); Eosinophil# 0.09 X10^3/uL; Eosinophils% 0.3 % (0-5); Hematocrit 47.1 % (37-47); Hemoglobin 14.4 g/dL (12.0-15.0); Lymphocyte # 1.32 X10^3/ul (4.0); Lymphocyte % 4.5 % (19-41); Mean Corp Hgb Conc 30.6 g/dL (32-36); Mean Corpuscular Hgb 28.7 pg (27.0-32.0); Mean Corpuscular Volume 93.8 fL (81-99); Mean Platelet Vol. 10.9 fl (6.2-12.0); Monocyte# 0.66 X10^3/uL; Monocyte% 2.2 % (0-10); NRBC Flagged by Analyzer 0 % (0-5); Neutrophil # 26.96 X10^3/uL (2.7-7.7); Neutrophil % 91.9 % (47-70); POSITIVE DIFFERENTIAL YES; Platelet Count 221 K/mm3 (150-450); RBC Distribution Width CV 15.7 % (11.6-14.6); Red Blood Count 5.02 M/mm3 (4.2-5.4); White Blood Count 29.4 K/mm3 (4.4-11.0)
[2018-10-30 15:47] LABS: Differential Indicated SCAN CRITERIA MET
[2018-10-30 16:08] LABS: Vitamin D,25 Hydroxy 36.1 ng/mL (29.95-100.01)
[2018-10-30 16:10] LABS: AST(SGOT) 27 U/L (15-37); Alanine Aminotransfer ALT/SGPT 43 U/L (13-56); Albumin, Serum 3.3 g/dL (3.2-5.0); Alkaline Phosphatase 124 U/L (45-117); Anion Gap 11 (5-15); BUN 20 mg/dL (7-18); BUN/Creat Ratio 15.2 RATIO (10-20); Calcium,Total 9.4 mg/dL (8.5-10.1); Chloride 100 mmol/L (98-107); Creatinine, Serum 1.32 mg/dL (0.55-1.02); EST Glomerular Filtration Rate 42 mL/min (>60); Est Glom Filt Rate - Afr Amer 51 mL/min (>60); Globulin 3.2 g/dL (2.2-4.2); Glucose 129 mg/dL (74-106); Potassium 4.9 mmol/L (3.5-5.1); Protein, Total 6.5 g/dL (6.4-8.2); Sodium Level 141 mmol/L (136-145)
[2018-10-30 16:16] LABS: Differential Comment SCANNED
== END | disposition home or self-care (01) ==
LOC: POLAB3 14:34
PROVIDERS: Family Provider Family Medicine Geriatric Medicine; PCP Family Medicine Geriatric Medicine; Visit Provider Family Medicine Geriatric Medicine
DX: E11.9 Type 2 diabetes mellitus without complications (principal)
CPT/HCPCS: 36415; 80053; 82306; 84443; 85025; 87086

== ENCOUNTER 2018-11-21 10:30 | Emergency (ER) | payer MEDICARE, SELFPAY ==
[2018-11-18 16:56] VITALS: BMI 39.4
[2018-11-21 10:36] VITALS: BP 166/102; PULSE 60; RESP 17; TEMP 35.6; O2SAT 97; BMI 40.2
[2018-11-21 10:44] VITALS: BP 166/102; PULSE 60; RESP 17; O2SAT 97
--- NOTE | 2018-11-21 11:26 | CT_ITS ---
STUDY: CT BRAIN WITHOUT CONTRAST REASON FOR EXAM: Female, 73 years old. Fall with head injury RADIATION DOSAGE (If Supplied By Facility): CTDIvol = ( 44.99 ) mGy, DLP = ( 745.49 ) mGycm TECHNIQUE: Transaxial CT imaging of the brain was performed without administration of intravenous contrast material. Individualized dose optimization techniques were used for this CT. COMPARISON: April 08, 2018 FINDINGS: Larger posterior scalp laceration with hematoma. Normal calvarium. There is severe cerebral atrophy with widening of the extra-axial spaces and ventricular dilatation. There are areas of decreased attenuation within the white matter tracts of the supratentorial brain, consistent with microvascular disease changes. Normal basal ganglia and thalami. Normal brainstem. There is moderate cerebellar atrophy. There is no intracranial hemorrhage. There are no findings of an acute ischemic infarction. Normal visualized paranasal sinuses. CT/Brain/Head without Contrast IMPRESSION: No acute intracranial pathology. Scalp hematoma with laceration Electronically Signed: Benjamin Doss DO at 12:29 EDT Tel , Service support ,
--- NOTE | 2018-11-21 11:27 | ED.VIS.GEN ---
History of Present Illness Chief Complaint: Head Injury Informant: Patient, Family Onset: Today Current Severity: Mild Narrative: Fall head injury, the patient has history of CABG, she is on Xarelto saw her label paster yesterday everything was fine, indicates she stumbled walking down the ramp struck her head against part of the ramp and has a laceration to the back of the head she had no LOC she is a very mild headache no change in vision no confusion no numbness weakness paresthesias no neck chest or abdominal pain she has persistent bleeding from the scalp laceration was brought in for evaluation Past Medical History - Allergies and Home Meds Allergies/Adverse Reactions: Allergies codeine Allergy (Unknown, Verified 11/21/18 10:31) Hives cefazolin Allergy (Verified 11/21/18 10:31) Rash ciprofloxacin [From Cipro] Allergy (Verified 11/21/18 10:31) Hives ciprofloxacin HCl [From Cipro] Allergy (Verified 11/21/18 10:31) Hives Latex, Natural Rubber Allergy (Verified 11/21/18 10:31) Rash Penicillins [PCN] Allergy (Verified 11/21/18 10:31) Hives adhesive tape Adverse Reaction (Verified 11/21/18 10:31) Rash Primary Care Physician: Octaviano Franco Chi, MD [Primary Care Provider] - Past Medical History: - Surgical History: angioplasty, appendectomy, cholecystectomy, coronary bypass surgery, hysterectomy, tonsillectomy, - - R ankle surgery with hardware. placement of stents (cardiac or lower extremity. patient is unsure). excision upper lip carcinoma. Incision and drainage and excisional debridement infected traumatic open hematoma wound right anterior leg (90 cm2) and incision and drainage and excisional debridement infected traumatic open hematoma wound left anterior leg (72 cm2) - 12/29/14. Smoking Status: Former smoker - Family History Maternal Family History: Family History (Last Reviewed 11/18/18 @ 16:39 by Lisa Hutton) Father Heart disease Mother Hypertension Cancer Brother Diabetes Hypertension Family History: Reports: Heart Disease, Hypertension Paternal Family History: Family History (Last Reviewed 11/18/18 @ 16:39 by Lisa Hutton) Father Heart disease Mother Hypertension Cancer Brother Diabetes Hypertension Family History: Reports: Heart Disease, Hypertension, - - skin cancer. Sibling Family History: Family History (Last Reviewed 11/18/18 @ 16:39 by Lisa Hutton) Father Heart disease Mother Hypertension Cancer Brother Diabetes Hypertension Family History: Reports: Diabetes Review of Systems ROS: - As above General: Reports: - - She has about a 6 cm central occipital laceration is linear in the vertical plane, it is bleeding quite a bit, we irrigated the area cleansed with Shur-Clens irrigated again sterile prepped lidocaine and we closed it with sutures using standard sterile approach there was much better hemostasis. Denies: Chills, Fever, Sweats Eyes: Denies: Visual changes - bilaterally, Diplopia ENT: Denies: Rhinorrhea, Sore throat Cardiovascular: Denies: Chest pain, Palpitations Respiratory: Denies: Dyspnea, Cough, Dyspnea on exertion Gastrointestinal: Denies: Abdominal pain, Nausea, Vomiting, Diarrhea, Melena, Hematochezia Genitourinary: Denies: Dysuria, Hematuria, Frequency Musculoskeletal: Denies: Back pain, Extremity Pain Skin: Denies: Rash, Wounds Neurological: Denies: Headache, Weakness, Numbness Physical Exam Vital Signs/Narrative: Vital Signs Temp Pulse Resp BP Pulse Ox 11/21/18 10:44 60 17 166/102 H 97 11/21/18 10:36 96.0 F L 60 17 166/102 H 97 General: Well nourished, Well developed, No Acute Distress Head: - - She has about a 6 cm central occipital laceration is linear in the vertical plane, it is bleeding quite a bit, we irrigated the area cleansed with Shur-Clens irrigated again sterile prepped lidocaine and we closed it with sutures using standard sterile approach there was much better hemostasis Eyes: Perrl, EOMI ENT: Moist mucous membranes, No rhinorrhea Neck: Supple, Nontender Cardiovascular: Regular rate, Regular rhythm, No murmurs Respiratory: No distress, CTA bilaterally, Chest nontender Abdomen: Soft, Nontender, Nondistended, Normal bowel sounds Back: Nontender, Normal Inspection Extremities: Nontender, No edema Skin: Normal color, No rash Neurological: Alert, Oriented x3, Cranial nerves II-XII grossly intact, Normal Strength, Normal Sensation Psychological: Normal affect, Normal Mood Diagnostic/Tx/Re-eval - Medical Decision Making All the above she remains awake and alert there is no signs of obvious head injury, the scalp laceration has been closed, she is under observation head CT she is feeling better suturing completed She is head CT shows no acute skull fracture intracranial injury or bleeding, the do note the scalp contusion hematoma, we have observed her in the department the bleeding is well controlled now with the dressing, she remains awake and alert we discussed with her inpatient versus outpatient management she understands the complicated nature of this injury given given the Xarelto she wishes to go home she will follow-up with plastic surgery head injury instruction sheets and return for signs and symptoms on that instruction sheet After observation she remains awake and alert has no complaints and again's declines admission wants to go home, recommended she hold her Xarelto for 24 hours, she will follow-up with plastic surgery to have the sutures removed and have further evaluation of all the above Home stable declined admission Final impression 7 cm scalp laceration, closed with nylon, head injury, Xarelto Plavix therapy ED Disposition - Plan for ED Patient: Diagnosis: Head injury scalp laceration Instructions: HEAD INJURY with Wake-Up (Adult), LACERATION, Scalp Prescriptions: Hydrocodone Bitart/Apap 5-325 [[place] 5MG-325MG] 1 tab PO Q4H PRN PRN 2 Days #7 tab PRN Reason: Pain Prescription Printed Referrals: Octaviano Franco Chi, MD [Primary Care Provider] - Farhat Strange MD [STAFF PHYSICIAN] -
--- NOTE | 2018-11-21 11:47 | ED.RN ---
WHILE CLEANING PT AFTER SUTURES HAD BEEN PLACED. PT BECAME NAUSEATED AND PALE. PT PLACED BACK IN BED. 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 DR KIM INFORMED OF PT'S CHANGES.
[2018-11-21] MEDS: Morphine 4 MG/ML Syringe IV (12:16)
[2018-11-21] MEDS: Ondansetron 4 MG/2 ML Vial IV (12:16)
[2018-11-21 12:18] VITALS: BP 125/62; PULSE 51; RESP 16; O2SAT 96
[2018-11-21 14:40] VITALS: BP 133/59; PULSE 51; RESP 16; RESP 18; O2SAT 94
== END 2018-11-21 14:42 | disposition home or self-care (01) ==
PROVIDERS: Emergency Provider Emergency Medicine; Family Provider Family Medicine Geriatric Medicine; PCP Family Medicine Geriatric Medicine
DX: S01.01XA Laceration without foreign body of scalp, initial encounter (principal); Z95.1 Presence of aortocoronary bypass graft; Z79.02 Long term (current) use of antithrombotics/antiplatelets; Z87.891 Personal history of nicotine dependence; W26.8XXA Contact with other sharp object(s), not elsewhere classified, initial encounter; Y93.01 Activity, walking, marching and hiking; Y92.531 Health care provider office as the place of occurrence of the external cause; Y99.8 Other external cause status
CPT/HCPCS: 12002; 70450; 96374; 96375; 99284; A4216; J2405

== ENCOUNTER 2018-12-05 12:15 | Outpatient (RCR) | payer MEDICARE, SELFPAY ==
[2018-11-05 00:32] VITALS: BP 194/66; PULSE 58; RESP 18; TEMP 36.6
[2018-11-07 10:13] VITALS: BP 147/56; PULSE 22; RESP 22; TEMP 36.3; BMI 36.8
--- NOTE | 2018-11-07 10:48 | PCM.WC.PN ---
(1) Bilateral lower extremity edema Status: Chronic Current Visit: Yes Code(s): R60.0 - Localized edema (2) Ulcer of left lower extremity with fat layer exposed Status: Chronic Current Visit: Yes Code(s): L97.922 - Non-pressure chronic ulcer of unspecified part of left lower leg with fat layer exposed Type of Wound Date of Service: 11/07/18 Chief Complaint: Left lower extremity wond and ulcer. History of Wound: Ms. Ya is a 73-year-old who presents with a new left lower extremity medial wound and lateral ulcer. Wounbd was sustained after she hit her walker. Significant bleeding was noted per patient. She has applied guaze over top. She is unsure of how she sutained her left lateral ulcer. She reports compliance with her compression stockings but still has signifcnat bilaterl lower extremity swelling/ edema. She feels well otherwise and denies chills, fever, nausea or vomiting. Progress of Wound: S/P recent hospital admisson for cellulitis. Doing well at this time however, she now has worsening bilateral lower extremity swelling. - Physical Exam Vital Signs Temp Pulse Resp BP 97.3 F L 22 L 22 H 147/56 H 11/07/18 10:13 11/07/18 10:13 11/07/18 10:13 11/07/18 10:13 General: Alert, Oriented x3, Cooperative, No apparent distress HEENT: Atraumatic, Normocephalic Oral: Moist Mucosa Neck: Supple Lungs: Normal air movement Abdomen: Non Tender, Obese Extremities: No cyanosis, Edema Skin: Ulcer/ Wound Wound Measurements and Assessment WC - Nurse 1 - General Ulcer Measurement Start: 11/07/18 10:13 Freq: Status: Active Protocol: Activity Type Activity Date Activity User E-Sign Co-Sign Detail Recorded Client Recorded Date Recorded By Document 11/07/18 10:13 DL [id number] 11/07/18 10:20 DL 11/07/18 10:13 Wound Center Nurse 1 [Ulcer Assessment] 21. LLE posterior -Current Size (cm) - Length 0.1 -Current Size (cm) - Width 0.1 -Current Size (cm) - Depth 0.1 -Total Square Cm 0.01 -Photo Taken No -Exudate Amt Small -Exudate Type Serosanguineous -Wound Margin Flat & Intact -Granulation Amt Large (67-100%) -Granulation Quality [place] -Necrosis Amt Small (1-33%) -Necrotic Tissue Type Adherent Slough -Structure Exposed N/A -Texture (Char-wound Skin Appearance) Localized Edema ,Scarring -Color (Char-wound Skin Appearance) Hemosiderin Staining -Temperature (Char-wound Skin No Abnormality Appearance) (Pt Warm) -Tenderness on Palpation (Char-wound No Skin Appearance) -Ulcer Cleansing Wound Cleanser -Foul Odor after Cleansing No -Anesthetic Used 5% Lidocaine Gel [Edema Assessment] -Right Calf (cm) 44.5 -Right Ankle (cm) 29.5 -Left Calf (cm) 48 -Left Ankle (cm) 29.2 WC - Nurse 2 - General Ulcer CM Notes Start: 11/07/18 10:13 Freq: Status: Active Protocol: Activity Type Activity Date Activity User E-Sign Co-Sign Detail Recorded Client Recorded Date Recorded By Document 11/07/18 10:36 MW [id number] 11/07/18 10:37 MW 11/07/18 10:36 Wound Center Nurse 2 [Procedure/Treatment] 21. LLE posterior -Time 10:36 -Correct Patient Yes -Correct Side, Site, Position Yes -Correct Procedure Yes -Procedure Performed No -Wound/Ulcer Outcome Amputation -Ulcer Cleansing Rinsed/ Irrigated with Saline -Foul Odor after Cleansing No -Bioengineered Tissue No -Bleeding Controlled with NA -Offloading No -Treatment Response Procedure Tolerated Well [See Physician Procedure note for Specifics] Pain Scale: 0-10 Numeric [Pain] -Is Patient Pain Free? Yes Musculoskeletal: No Muscle Wasting Neurological: Cranial nerves II-XII grossly intact Psych/Mental Status: Normal Affect Debridement Note Post-Debridement Measurements/Treatment - Nurse 2 - General Ulcer CM Notes Start: 11/07/18 10:13 Freq: Status: Active Protocol: Activity Type Activity Date Activity User E-Sign Co-Sign Detail Recorded Client Recorded Date Recorded By Document 11/07/18 10:36 MW [id number] 11/07/18 10:37 MW 11/07/18 10:36 Wound Center Nurse 2 21. LLE posterior -Time 10:36 -Correct Patient Yes -Correct Side, Site, Position Yes -Correct Procedure Yes -Procedure Performed No -Wound/Ulcer Outcome Amputation -Ulcer Cleansing Rinsed/ Irrigated with Saline -Foul Odor after Cleansing No -Bioengineered Tissue No -Bleeding Controlled with NA -Offloading No -Treatment Response Procedure Tolerated Well Pain Scale: 0-10 Numeric Is Patient Pain Free? Yes No debridement was completed today Assessment/Plan Active Problems (Last Updated 10/28/18 @ 14:38 by Lisa Hutton) Bilateral lower extremity edema (Chronic) Ulcer of left lower extremity with fat layer exposed (Chronic) Assessment: Same as above. Plan: Left medial ulcer is healed. Mild left lateral. Significant bilateral lower extremity swelling. No debridement completed today. Adaptic to left medial and lateral areas. 3M wraps for edema management. Exercise as tolerated, avoid idle standing and elevate lower extremities when seated and in bed. Increased protein intake also recommended. Her questions were answered and she was advised to call with any questions or concerns. Follow up on Sunday for Nurse Visit and in 1 week with me. This note was generated with [employer] dictation software. It may contain incorrect words, spelling, and punctuation that were not noted in checking the note before signing.
[2018-11-14 11:41] VITALS: BP 170/81; PULSE 62; RESP 18; TEMP 37.1; BMI 36.8
--- NOTE | 2018-11-14 16:52 | PCM.WC.PN ---
(1) Bilateral lower extremity edema Status: Chronic Current Visit: Yes Code(s): R60.0 - Localized edema (2) Ulcer of left lower extremity with fat layer exposed Status: Chronic Current Visit: Yes Code(s): L97.922 - Non-pressure chronic ulcer of unspecified part of left lower leg with fat layer exposed Type of Wound Date of Service: 11/14/18 Chief Complaint: Left lower extremity wond and ulcer. History of Wound: Ms. Ya is a 73-year-old who presents with a new left lower extremity medial wound and lateral ulcer. Wounbd was sustained after she hit her walker. Significant bleeding was noted per patient. She has applied guaze over top. She is unsure of how she sutained her left lateral ulcer. She reports compliance with her compression stockings but still has signifcnat bilaterl lower extremity swelling/ edema. She feels well otherwise and denies chills, fever, nausea or vomiting. Progress of Wound: Here for follow-up. No new concerns. Significant edema however no ulcerations noted at this time. - Physical Exam Vital Signs Temp Pulse Resp BP 98.7 F 62 18 170/81 H 11/14/18 11:41 11/14/18 11:41 11/14/18 11:41 11/14/18 11:41 General: Alert, Oriented x3, Cooperative, No apparent distress HEENT: Atraumatic, Normocephalic Oral: Moist Mucosa Neck: Supple Lungs: Normal air movement Abdomen: Non Tender, Obese Extremities: No cyanosis, Edema Wound Measurements and Assessment WC - Nurse 1 - General Ulcer Measurement Start: 11/07/18 10:13 Freq: Status: Active Protocol: Activity Type Activity Date Activity User E-Sign Co-Sign Detail Recorded Client Recorded Date Recorded By Document 11/14/18 11:41 [id number] 11/14/18 11:52 CS 11/14/18 11:41 Wound Center Nurse 1 [Ulcer Assessment] 21. LLE posterior -Combined with other wound No -Current Size (cm) - Length 0.1 -Current Size (cm) - Width 0.1 -Current Size (cm) - Depth 0.1 -Total Square Cm 0.01 -Epithelialization Large 67-100% -Tunneling No -Undermining/Tunneling No -Circular Undermining No [Edema Assessment] -Lower Limb Edema Present Yes -Right Calf (cm) 45 -Right Ankle (cm) 27 -Left Calf (cm) 48 -Left Ankle (cm) 27.2 - Nurse 2 - General Ulcer CM Notes Start: 11/07/18 10:13 Freq: Status: Active Protocol: Activity Type Activity Date Activity User E-Sign Co-Sign Detail Recorded Client Recorded Date Recorded By Document 11/14/18 12:26 MW [id number] 11/14/18 12:29 MW 11/14/18 12:26 Wound Center Nurse 2 [Procedure/Treatment] 21. LLE posterior -Time 12:27 -Correct Patient Yes -Correct Side, Site, Position Yes -Correct Procedure Yes -Procedure Performed No -Post Debridement Size (cm) - Length 0 -Post Debridement Size (cm) - Width 0 -Post Debridement Size (cm) - Depth 0 -Total Square Cm 0 -Wound/Ulcer Outcome Healed- Epithelialized [See Physician Procedure note for Specifics] Pain Scale: 0-10 Numeric [Pain] -Is Patient Pain Free? Yes Musculoskeletal: No Muscle Wasting Neurological: Cranial nerves II-XII grossly intact Psych/Mental Status: Normal Affect Debridement Note Post-Debridement Measurements/Treatment WC - Nurse 2 - General Ulcer CM Notes Start: 11/07/18 10:13 Freq: Status: Active Protocol: Activity Type Activity Date Activity User E-Sign Co-Sign Detail Recorded Client Recorded Date Recorded By Document 11/07/18 10:36 MW [id number] 11/07/18 10:37 MW Document 11/14/18 12:26 MW [id number] 11/14/18 12:29 MW 11/07/18 11/14/18 10:36 12:26 Wound Center Nurse 2 21. LLE posterior -Time 10:36 12:27 -Correct Patient Yes Yes -Correct Side, Site, Position Yes Yes -Correct Procedure Yes Yes -Procedure Performed No No -Post Debridement Size (cm) - Length 0 -Post Debridement Size (cm) - Width 0 -Post Debridement Size (cm) - Depth 0 -Total Square Cm 0 -Wound/Ulcer Outcome Amputation Healed- Epithelialized -Ulcer Cleansing Rinsed/ Irrigated with Saline -Foul Odor after Cleansing No -Bioengineered Tissue No -Bleeding Controlled with NA -Offloading No -Treatment Response Procedure Tolerated Well Pain Scale: 0-10 Numeric Is Patient Pain Free? Yes Yes No debridement was completed today Assessment/Plan Active Problems (Last Updated 10/28/18 @ 14:38 by Lisa Hutton) Bilateral lower extremity edema (Chronic) Ulcer of left lower extremity with fat layer exposed (Chronic) Assessment: Same as above. Plan: No debridement completed today. 3M wraps for edema management. Exercise as tolerated, avoid idle standing and elevate lower extremities when seated and in bed. Increased protein intake also recommended. Her questions were answered and she was advised to call with any questions or concerns. Follow up in 1 week. This note was generated with [employer]atchJr dictation software. It may contain incorrect words, spelling, and punctuation that were not noted in checking the note before signing.
[2018-11-22 11:03] VITALS: BP 134/55; PULSE 58; RESP 22; TEMP 36; BMI 36.8
--- NOTE | 2018-11-22 11:53 | PCM.WC.PN ---
(1) Lymphedema of both lower extremities Status: Acute Current Visit: Yes Code(s): I89.0 - Lymphedema, not elsewhere classified (2) Bilateral lower extremity edema Status: Chronic Current Visit: No Code(s): R60.0 - Localized edema (3) Diastolic CHF Status: Chronic Current Visit: No Code(s): I50.30 - Unspecified diastolic (congestive) heart failure (4) Edema, lower extremity Status: Chronic Current Visit: No Code(s): R60.0 - Localized edema (5) PVD (peripheral vascular disease) Status: Chronic Current Visit: No Code(s): I73.9 - Peripheral vascular disease, unspecified (6) Type 2 diabetes mellitus Status: Chronic Current Visit: No Code(s): E11.9 - Type 2 diabetes mellitus without complications Type of Wound Date of Service: 11/22/18 Chief Complaint: Left lower extremity wond and ulcer. History of Wound: Ms. Ya is a 73-year-old who presents with a new left lower extremity medial wound and lateral ulcer. Wounbd was sustained after she hit her walker. Significant bleeding was noted per patient. She has applied guaze over top. She is unsure of how she sutained her left lateral ulcer. She reports compliance with her compression stockings but still has signifcnat bilaterl lower extremity swelling/ edema. She feels well otherwise and denies chills, fever, nausea or vomiting. Progress of Wound: Here for follow-up. No new concerns. Significant edema however no ulcerations noted at this time. We will continue the 's patient did get a phone call from [facility] to the lymphedema clinic she could probably get in next week. - Physical Exam Vital Signs Temp Pulse Resp BP 96.8 F L 58 L 22 H 134/55 H 11/22/18 11:03 11/22/18 11:03 11/22/18 11:03 11/22/18 11:03 General: Oriented x3, Cooperative, Well developed HEENT: Atraumatic, PERRLA Oral: Moist Mucosa Neck: Supple, No JVD Lungs: Clear to auscultation, Normal air movement Cardiovascular: Regular rate, Regular Rhythm Abdomen: Bowel Sounds Present, Soft, Non Tender, No Hepato-splenomegaly Extremities: No clubbing, Edema Wound Measurements and Assessment WC - Nurse 1 - General Ulcer Measurement Start: 11/07/18 10:13 Freq: Status: Active Protocol: Activity Type Activity Date Activity User E-Sign Co-Sign Detail Recorded Client Recorded Date Recorded By Document 11/22/18 11:03 DL [id number] 11/22/18 11:15 DL 11/22/18 11:03 Wound Center Nurse 1 [Edema Assessment] -Point of measurement (cm from the 36.4 medial instep) -Point of Measurement (cm from the 24 medial instep) -Point of measurement (cm from the 43.5 medial instep) -Point of Measurement (cm from the 23.5 medial instep) - Nurse 2 - General Ulcer CM Notes Start: 11/07/18 10:13 Freq: Status: Active Protocol: Activity Type Activity Date Activity User E-Sign Co-Sign Detail Recorded Client Recorded Date Recorded By Document 11/22/18 11:24 MW [id number] 11/22/18 11:24 MW 11/22/18 11:24 Pain Scale: 0-10 Numeric [Pain] -Is Patient Pain Free? Yes Musculoskeletal: No Tenderness to Palpation of Joints or Extremities Lymphatic: No Cervical, Supraclavicular, or Inguinal Adenopathy Neurological: Cranial nerves II-XII grossly intact, Neuro grossly intact Psych/Mental Status: Normal Affect, Appropriate Debridement Note Post-Debridement Measurements/Treatment - Nurse 2 - General Ulcer CM Notes Start: 11/07/18 10:13 Freq: Status: Active Protocol: Activity Type Activity Date Activity User E-Sign Co-Sign Detail Recorded Client Recorded Date Recorded By Document 11/07/18 10:36 MW [id number] 11/07/18 10:37 MW Document 11/14/18 12:26 MW [id number] 11/14/18 12:29 MW Document 11/22/18 11:24 MW [id number] 11/22/18 11:24 MW 11/07/18 11/14/18 11/22/18 10:36 12:26 11:24 Wound Center Nurse 2 21. LLE posterior -Time 10:36 12:27 -Correct Patient Yes Yes -Correct Side, Site, Position Yes Yes -Correct Procedure Yes Yes -Procedure Performed No No -Post Debridement Size (cm) - Length 0 -Post Debridement Size (cm) - Width 0 -Post Debridement Size (cm) - Depth 0 -Total Square Cm 0 -Wound/Ulcer Outcome Amputation Healed- Epithelialized -Ulcer Cleansing Rinsed/ Irrigated with Saline -Foul Odor after Cleansing No -Bioengineered Tissue No -Bleeding Controlled with NA -Offloading No -Treatment Response Procedure Tolerated Well Pain Scale: 0-10 Numeric Is Patient Pain Free? Yes Yes Yes No debridement was completed today Assessment/Plan Active Problems (Last Reviewed 11/18/18 @ 16:39 by Lisa Hutton) Lymphedema of both lower extremities (Acute) Assessment: Same as above. Plan: No debridement completed today. 3M wraps for edema management. Exercise as tolerated, avoid idle standing and elevate lower extremities when seated and in bed. Increased protein intake also recommended. Her questions were answered and she was advised to call with any questions or concerns. Follow up in 1 week. This note was generated with go2 media dictation software. It may contain incorrect words, spelling, and punctuation that were not noted in checking the note before signing.
[2018-11-28 11:52] VITALS: BMI 36.8
[2018-12-05 12:20] VITALS: BP 149/79; PULSE 68; RESP 16; TEMP 37; BMI 36.8
--- NOTE | 2018-12-05 14:06 | PN.PCM_ITS ---
(1) Bilateral lower extremity edema Status: Chronic Current Visit: Yes Code(s): R60.0 - Localized edema (2) Ulcer of left lower extremity with fat layer exposed Status: Chronic Current Visit: Yes Code(s): L97.922 - Non-pressure chronic ulcer of unspecified part of left lower leg with fat layer exposed Type of Wound Date of Service: 12/05/18 Chief Complaint: Left lower extremity wond and ulcer. History of Wound: Ms. Ya is a 73-year-old who presents with a new left lower extremity medial wound and lateral ulcer. Wounbd was sustained after she hit her walker. Significant bleeding was noted per patient. She has applied guaze over top. She is unsure of how she sutained her left lateral ulcer. She reports compliance with her compression stockings but still has signifcnat bilaterl lower extremity swelling/ edema. She feels well otherwise and denies chills, fever, nausea or vomiting. Progress of Wound: Healed ulcers. Edema also improved. No new concerns. - Physical Exam Vital Signs Temp Pulse Resp BP 98.6 F 68 16 149/79 H 12/05/18 12:20 12/05/18 12:20 12/05/18 12:20 12/05/18 12:20 General: Alert, Oriented x3, Cooperative, No apparent distress HEENT: Atraumatic, Normocephalic Oral: Moist Mucosa Neck: Supple Lungs: Normal air movement Abdomen: Non Tender, Obese Extremities: No cyanosis, Edema Wound Measurements and Assessment WC - Nurse 1 - General Ulcer Measurement Start: 11/07/18 10:13 Freq: Status: Active Protocol: Activity Type Activity Date Activity User E-Sign Co-Sign Detail Recorded Client Recorded Date Recorded By Document 12/05/18 12:20 BM [id number] 12/05/18 12:27 BM 12/05/18 12:20 Wound Center Nurse 1 [Edema Assessment] -Lower Limb Edema Present Yes -Right Calf (cm) 36 -Right Ankle (cm) 27 -Left Calf (cm) 37 -Left Ankle (cm) 28 WC - Nurse 2 - General Ulcer CM Notes Start: 11/07/18 10:13 Freq: Status: Active Protocol: Activity Type Activity Date Activity User E-Sign Co-Sign Detail Recorded Client Recorded Date Recorded By Document 12/05/18 12:40 MW [id number] 12/05/18 12:41 MW 12/05/18 12:40 Pain Scale: 0-10 Numeric [Pain] -Is Patient Pain Free? Yes Musculoskeletal: No Muscle Wasting Neurological: Cranial nerves II-XII grossly intact Psych/Mental Status: Normal Affect Debridement Note Post-Debridement Measurements/Treatment WC - Nurse 2 - General Ulcer CM Notes Start: 11/07/18 10:13 Freq: Status: Active Protocol: Activity Type Activity Date Activity User E-Sign Co-Sign Detail Recorded Client Recorded Date Recorded By Document 11/07/18 10:36 MW [id number] 11/07/18 10:37 MW Document 11/14/18 12:26 MW [id number] 11/14/18 12:29 MW Document 11/22/18 11:24 MW [id number] 11/22/18 11:24 MW Document 12/05/18 12:40 MW [id number] 12/05/18 12:41 MW 11/07/18 11/14/18 11/22/18 10:36 12:26 11:24 Wound Center Nurse 2 21. LLE posterior -Time 10:36 12:27 -Correct Patient Yes Yes -Correct Side, Site, Position Yes Yes -Correct Procedure Yes Yes -Procedure Performed No No -Post Debridement Size (cm) - Length 0 -Post Debridement Size (cm) - Width 0 -Post Debridement Size (cm) - Depth 0 -Total Square Cm 0 -Wound/Ulcer Outcome Amputation Healed- Epithelialized -Ulcer Cleansing Rinsed/ Irrigated with Saline -Foul Odor after Cleansing No -Bioengineered Tissue No -Bleeding Controlled with NA -Offloading No -Treatment Response Procedure Tolerated Well Pain Scale: 0-10 Numeric Is Patient Pain Free? Yes Yes Yes 12/05/18 12:40 Wound Center Nurse 2 21. LLE posterior -Time -Correct Patient -Correct Side, Site, Position -Correct Procedure -Procedure Performed -Post Debridement Size (cm) - Length -Post Debridement Size (cm) - Width -Post Debridement Size (cm) - Depth -Total Square Cm -Wound/Ulcer Outcome -Ulcer Cleansing -Foul Odor after Cleansing -Bioengineered Tissue -Bleeding Controlled with -Offloading -Treatment Response Pain Scale: 0-10 Numeric Is Patient Pain Free? Yes No debridement was completed today Assessment/Plan Active Problems (Last Reviewed 11/18/18 @ 16:39 by Lisa Hutton) Lymphedema of both lower extremities (Acute) Bilateral lower extremity edema (Chronic) Ulcer of left lower extremity with fat layer exposed (Chronic) Assessment: Same as above. Plan: No debridement completed today. No ulcers. Edema improved. Continue Circaids and follow up at the lymphedema clinic. Exercise as tolerated, avoid idle standing and elevate lower extremities when seated and in bed. Increased protein intake also recommended. Her questions were answered and she was advised to call with any questions or concerns. Discharged from the wound clinic. This note was generated with Slots.comation software. It may contain incorrect words, spelling, and punctuation that were not noted in checking the note before signing.
== END 2018-12-05 23:59 ==
LOC: WC 12:15
PROVIDERS: Family Provider Family Medicine Geriatric Medicine; PCP Family Medicine Geriatric Medicine; Referring Provider Podiatrist; Visit Provider Internal Medicine
DX: R60.0 Localized edema (principal); M79.89 Other specified soft tissue disorders; E11.9 Type 2 diabetes mellitus without complications
CPT/HCPCS: 29581; 99212; 99213; G0463

== ENCOUNTER 2018-12-05 13:47 | Outpatient (RCR) | payer MEDICARE, SELFPAY ==
[2018-11-28 11:56] VITALS: BMI 40.2
[2018-12-05 12:20] VITALS: BMI 36.8
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
--- NOTE | 2019-02-07 09:03 | HP.OT.NRP ---
HP - Discharge Summary - Patient Information SINA VIZCARRA was seen in my office for initial evaluation on 12/05/18. The following Plan of Care was established for this patient: Initial Frequency: 1x/Week Initial Duration: 3 Weeks - Anticipated Interventions Anticipated Interventions: Education re Life-long lymphedema Management, Education re Skin Care and Precautions, Education re Self Massage Techniques, Education re Correct Donning Tech,Care&Wearing Sched Comp Garments, Caregiver Training, Home Program This patient was last seen in our office 12/05/18. Pertinent comments regarding their Occupational therapy will appear below: Pt was seen for OT eval only- pt did not return for further tx or call with questions. Due to time lapse in care pt d/c at this time. At this point I will be discontinuing this patient from occupational therapy. I would be happy to see this patient again in the future if found appropriate by the physician. Thank you! Lisa Sorensen, OTR/L, CHT
== END 2018-12-05 19:00 | disposition home or self-care (01) ==
LOC: OT 13:47
PROVIDERS: Family Provider Family Medicine Geriatric Medicine; PCP Family Medicine Geriatric Medicine; Visit Provider Internal Medicine
DX: E11.622 Type 2 diabetes mellitus with other skin ulcer (principal); R60.0 Localized edema; L97.822 Non-pressure chronic ulcer of other part of left lower leg with fat layer exposed; E11.22 Type 2 diabetes mellitus with diabetic chronic kidney disease; N17.9 Acute kidney failure, unspecified; E11.51 Type 2 diabetes mellitus with diabetic peripheral angiopathy without gangrene; G35 Multiple sclerosis
CPT/HCPCS: 97166; 97530; 99212; G0463

== ENCOUNTER → 2018-12-09 | Outpatient (CLI) | payer MEDICARE, SELFPAY ==
[2018-12-09 15:46] VITALS: BMI 40.2
== END | disposition home or self-care (01) ==
PROVIDERS: Family Provider Family Medicine Geriatric Medicine; PCP Family Medicine Geriatric Medicine; Referring Provider Nurse Practitioner Family; Visit Provider Nurse Practitioner Family
DX: S01.91XA Laceration without foreign body of unspecified part of head, initial encounter (principal); Z91.81 History of falling
CPT/HCPCS: 87070; 87075; 87077; 87186; 87205

== ENCOUNTER 2018-12-13 13:17 | Inpatient (IN) | payer MEDICARE, SELFPAY ==
[2018-12-09 15:46] VITALS: BMI 40.2
[2018-12-11 13:40] VITALS: BMI 40.2
--- NOTE | 2018-12-12 23:02 | PCM.HP.BLA ---
History and Physical Date of Admission: 12/13/18 HISTORY OF PRESENT ILLNESS 73 year old woman presents with a nonhealing traumatic hematoma wound top of scalp at vertex with occipital extension that she sustained on 11/21/18 when stumbled walking down a ramp and struck her head against part of the ramp. She is on Xarelto and sustained bleeding that required gauze compression. She went to the ED where a CT Head showed no skull fracture, no intracranial injury, no bleeding. The wound was cleansed and there was suture repair. Today she denies fever. She has some discomfort in her scalp area. She states she has not been able to wash her hair because of dried blood in the area of the injury. Today she denies fever. She presents today for surgical options for treatment. PAST MEDICAL HISTORY Essential hypertension Type 2 diabetes mellitus Venous insufficiency of both lower extremities Diastolic CHF Iron deficiency anemia Ulcer of right lower extremity with fat layer exposed Ulcer of right foot with fat layer exposed Ulcer of left lower extremity with fat layer exposed PVD (peripheral vascular disease) Ulcer of left lower extremity with fat layer exposed Edema, lower extremity Presence of stent in coronary artery Atherosclerotic heart disease of [place] coronary artery without angina pectoris Paroxysmal atrial fibrillation Hyperlipidemia Acute cystitis Carcinoma of lip Diabetic ulcer of both lower extremities History of DVT (deep vein thrombosis) Severe sepsis Trigeminal neuralgia Multiple sclerosis LAURITA (obstructive sleep apnea) Peripheral vascular disease Venous insufficiency of both lower extremities Cognitive impairment Cellulitis of right leg PAST SURGICAL HISTORY CABG (coronary artery bypass graft) cataract surgery cholecystectomy hernia repair tonsillectomy and adenoidectomy total hysterectomy Postsurgical percutaneous transluminal coronary angioplasty ALLERGIES codeine cefazolin ciprofloxacin HCl [From Cipro] Latex, Natural Rubber Penicillins [PCN] adhesive tape MEDICATIONS Amiodarone HCl Duloxetine HCl Magnesium Oxide [Mag-Ox 400] Metoprolol Tartrate [Lopressor (beta man)] Pantoprazole Sodium [Protonix] Rivaroxaban [Xarelto] Docusate Sodium Ergocalciferol (Vitamin D2) [Vitamin D2] Donepezil HCl Potassium Chloride [Klor-Con M20] Acetaminophen [Tylenol Tablet] Furosemide [Lasix] ferrous sulfate gabapentin amlodipine budesonide 180 mcg/actuation breath activated powder inhaler Hydrocortisone FAMILY HISTORY Father - Heart disease Mother - Hypertension, Cancer Brother - Diabetes, Hypertension SOCIAL HISTORY Smoking Status: Former smoker how long ago did patient quit smokin alcohol intake: never substance use type: does not use REVIEW OF SYSTEMS General - Denies fever, fatigue, and weight loss. Eyes - Denies cataracts and glaucoma. ENT - Denies nasal congestion and sore throat. Endocrine - Has excessive thirst and urination. She has diabetes mellitus. Skin - Denies suspicious lesions and skin cancer. Musculoskeletal - Denies joint pain, joint stiffness, weakness of muscles and joints, back pain, and arthritis. Neuro - Denies headaches. Cardiovascular - Denies chest pain, fatigue, and shortness of breath with exertion. Psych - Denies anxiety and depression. Respiratory - Denies chronic cough. Has shortness of breath. Patient is a former smoker. Gastrointestinal - Denies nausea, vomiting, diarrhea, and constipation. Hematologic - Has abnormal bruising and bleeding. She is on Xarelto. Genitourinary - Denies hematuria. Has urinary frequency. Has incontinence. PHYSICAL EXAMINATION General - Alert and Oriented. HEENT - PERRL. EOMI. Throat is clear. On the top of scalp at the vertex with some occipital extension is a nonhealing traumatic hematoma wound. The overlying dried blood was sharply debrided today. There was some residual hematoma clot that was removed today. I could not remove it all secondary to discomfort. The wound measures 4 x 1.5 cm. There is some undermining from the hematoma in all directions about 2-3 cm. No purulent drainage seen. No active bleeding seen. Mild tenderness to palpation. Bone is palpable but not exposed as there is a thin layer of soft tissue covering the bone. Neck - Supple and nontender. No cervical adenopathy. Lungs - Clear to auscultation. Heart - Regular rate and rhythm. Abdomen - Soft and nondistended. Extremities - FROM. No axillary adenopathy. Radial pulses are palpable. Has lower extremity edema. She wears compression stockings. Neuro - CN II-XII grossly intact. Psych - Normal mood and affect. ASSESSMENT 1. Nonhealing traumatic hematoma wound top of scalp at vertex with occipital extension. 2. Hematoma top of scalp at vertex with occipital extension. 3. Accidental fall. 4. Acute head injury with scalp hematoma without loss of consciousness. 5. Diabetes mellitus. 6. Former smoker. PLAN CT reviewed. The dried blood over the scalp wound was sharply debrided today. I also removed some hematoma clot as well. I could not remove it all secondary to discomfort. A wound culture was obtained. A positive culture will necessitate antibiotic therapy. I am concerned about a secondary infection since the injury was over 2 weeks ago. She also is a diabetic. Started Silver dressing changes. I recommend operative intervention with incision and drainage and evacuation of the hematoma and excisional debridement of the traumatic scalp wound. If there is no exposed bone, can proceed with a skin graft. If there is exposed bone, will mobilize the scalp edges and see if I can proceed with a complex secondary wound closure. I don't want to be too aggressive with mobilizing scalp flaps for closure because of the risk of bleeding secondary to being on Xarelto. In that case, can proceed with Silver dressing changes and followup at the [facility]. The goal is to develop granulation tissue over the area of exposed bone and then proceed with skin grafting. It was discussed with the patient that she is at risk for developing osteomyelitis. If present, then [facility] antibiotics would be necessary along with partial ostectomy for osteomyelitis. At that point, complex wound closure may require evaluation and treatment at a tertiary center as complex flaps using microvascular free tissue transfer may be necessary. Will schedule the surgery later this week under general anesthesia with a surgical observation overnight stay at the hospital. Patient was informed of the risks and complications of the procedure including alternatives to surgery. These were discussed with the patient personally. Patient voices understanding and wishes to proceed. Some of the risks and complications were included in a form from the [employer].
[2018-12-13] VITALS (14 sets, daily range): BP systolic 122–194; BP diastolic 54–113; PULSE 54–71; RESP 16–20; TEMP 36.4–37.2; O2SAT 93–100; BMI 40.2; BMI 39.0
[2018-12-13 11:15] LABS: Hematocrit 40.6 % (37-47); Hemoglobin 12.3 g/dL (12.0-15.0); Mean Corp Hgb Conc 30.3 g/dL (32-36); Mean Corpuscular Hgb 29.6 pg (27.0-32.0); Mean Corpuscular Volume 97.6 fL (81-99); Mean Platelet Vol. 9.7 fl (6.2-12.0); Platelet Count 326 K/mm3 (150-450); RBC Distribution Width SD 54.2 fl (35.1-43.9); Red Blood Count 4.16 M/mm3 (4.2-5.4); White Blood Count 11.5 K/mm3 (4.4-11.0)
[2018-12-13 11:22] LABS: Anion Gap 7 (5-15); BUN 20 mg/dL (7-18); BUN/Creat Ratio 18.2 RATIO (10-20); Calcium,Total 9.2 mg/dL (8.5-10.1); Chloride 109 mmol/L (98-107); EST Glomerular Filtration Rate 52 mL/min (>60); Est Glom Filt Rate - Afr Amer 62 mL/min (>60); Glucose 111 mg/dL (74-106); Potassium 3.9 mmol/L (3.5-5.1); Sodium Level 144 mmol/L (136-145)
[2018-12-13 11:25] LABS: Prothrombin Time (Protime)PT. 13.1 SECONDS (11.7-14.9)
[2018-12-13 11:26] LABS: Partial Thromboplast Time 25.7 Seconds (24.1-36.2)
[2018-12-13 12:00] LABS: Bedside Glucose 96 mg/dL (70-110)
[2018-12-13] MEDS: Lactated Ringers 1,000 ML 100 ML IV (12:00)
[2018-12-13 12:16] LABS: Hemoglobin A1c 5.4 % (4.2-6.3)
--- NOTE | 2018-12-13 12:55 | PCM.PN.BLA ---
Progress Note Patient was scheduled for surgery today. In the OR, her BP was 219/77. She denied any headache or visual problems or nausea/vomiting. With anesthesia, there is increased risk of cardiac issues with a pressure that high. The surgery is not a life and emergency so the surgery was cancelled today after conferring with Anesthesia. The patient will be admitted for further evaluation and treatment. I consulted Hospitalist to help with medical management. The wound culture that was done from the office earlier in the week on 12/09/18 showed Enterococcus and MRSE. She was scheduled to get Vancomycin perioperatively for the surgery. Will continue the Vancomycin. STROKE Vital Signs/Narrative: Vital Signs Temp Pulse Resp BP Pulse Ox 12/13/18 12:50 55 L 16 184/62 H 100 12/13/18 12:45 99.0 F 55 L 16 169/113 H 94 12/13/18 11:40 97.8 F 58 L 16 160/68 H 93
[2018-12-13] MEDS: Lactated Ringers 1,000 ML 60 ML IV (13:45)
--- NOTE | 2018-12-13 14:08 | PCM.RX.CS ---
Consult Pharmacy has been consulted to manage selected antiobiotic: Vancomycin Type of Consult: New start Suspected Infection: Skin/Soft tissue Prior Doses of Antibiotics Received/Current Regimen: Medications Discontinued Medications Vancomycin HCl (Vancomycin) 1,000 mg in 200 mls @ 200 mls/hr IV PREOP ONE Stop: 12/13/18 12:59 Last Admin: 12/13/18 12:00 Dose: Not Given Documented by: Weight used for dosin kg Estimated Creatinine Clearance: 32 mL/min Goal Trough: 10-15 mcg/mL Pharmacy Plan for Drug Dosing: Vancomycin 1000mg IV per nomogram with trough prior to 3rd dose. Pharmacy Service will continue to monitor and adjust dosing as required. Follow-Up Labs: Trough Vancomycin - 12/15 @ 1130
[2018-12-13 14:14] LABS: Hematocrit 39.6 % (37-47); Hemoglobin 11.7 g/dL (12.0-15.0); Mean Corp Hgb Conc 29.5 g/dL (32-36); Mean Platelet Vol. 9.9 fl (6.2-12.0); Platelet Count 304 K/mm3 (150-450); RBC Distribution Width CV 15.1 % (11.6-14.6); RBC Distribution Width SD 54.6 fl (35.1-43.9); Red Blood Count 4.04 M/mm3 (4.2-5.4); White Blood Count 11.7 K/mm3 (4.4-11.0)
[2018-12-13 14:28] LABS: Erythrocyte Sedimentation Rate 23 mm/hr (0-30)
--- NOTE | 2018-12-13 14:34 | PCM.CONS.GEN ---
Problem List (1) Hypertensive urgency Status: Acute (2) Former smoker Status: Chronic (3) Acute head injury without loss of consciousness Status: Inactive (4) Accidental fall Status: Inactive (5) Open wound of scalp with complication Status: Acute Comment: 4 cm nonhealing traumatic hematoma wound top of scalp at vertex with occipital extension (6) Hematoma of scalp Status: Acute Comment: 4 cm nonhealing traumatic hematoma wound top of scalp at vertex with occipital extension (7) Lymphedema of both lower extremities Status: Acute (8) Grade I diastolic dysfunction Status: Chronic (9) Acute diastolic (congestive) heart failure Status: Acute (10) Acute sepsis Status: Acute (11) Allergic dermatitis Status: Acute (12) Angioedema Status: Acute (13) Adverse drug effect Status: Acute (14) Essential hypertension Status: Chronic (15) Type 2 diabetes mellitus Status: Chronic (16) Venous insufficiency of both lower extremities Status: Chronic (17) Open wound of right knee Status: Chronic Comment: Traumatic,penetratiung with fat layer exposed. (18) Wound of left lower extremity Status: Acute Qualifiers: Comment: Traumatic, penetrating with fat layer exposed. (19) Cellulitis Status: Acute (20) Bilateral lower extremity edema Status: Chronic (21) Metabolic encephalopathy Status: Resolved (22) Diastolic CHF Status: Chronic (23) Iron deficiency anemia Status: Chronic Comment: etiology unknown (24) Ulcer of right lower extremity with fat layer exposed Status: Chronic (25) Ulcer of right foot with fat layer exposed Status: Chronic (26) Ulcer of left lower extremity with fat layer exposed Status: Chronic (27) PVD (peripheral vascular disease) Status: Chronic (28) Ulcer of left lower extremity with fat layer exposed Status: Resolved (29) Edema, lower extremity Status: Chronic (30) Presence of stent in coronary artery Status: Chronic Comment: PTCA/stent to CX; PTCA/Stent PTCA/stent to prox RCA 05/06; PTCA/LILY in mid to distal RCA 08/29/12 (31) Atherosclerotic heart disease of [place] coronary artery without angina pectoris Status: Chronic Qualifiers: [place] vs. transplanted heart: [place] heart Qualified Code(s): I25.10 - Atherosclerotic heart disease of [place] coronary artery without angina pectoris Comment: PTCA/stent to CX; PTCA/Stent PTCA/stent to prox RCA 05/06; PTCA/LILY in mid to distal RCA 08/29/12; CABG x2 ARREGUIN tp LAD and SVG to OM2 01/02/11 (32) S/P CABG (coronary artery bypass graft) Status: Chronic Comment: CABG x2 ARREGUIN tp LAD and SVG to OM2 01/02/11 (33) Paroxysmal atrial fibrillation Status: Chronic (34) Hyperlipidemia Status: Chronic Qualifiers: Hyperlipidemia type: unspecified Qualified Code(s): E78.5 - Hyperlipidemia, unspecified Reason for Consult Date of Consultation: 12/13/18 Reason for Consultation: Hypertensive urgency History of Present Illness: The patient is a 73 year old F with multiple comorbidities including coronary artery disease status post bypass surgery December 2010 and a stent in August 2012, paroxysmal A. fib follows Dr. Luna scheduled for surgery today scalp traumatic ulcer with hematoma with Dr. Strange. Surgery was canceled owing to high blood pressure 219/77. She denies any focal symptoms/endorgan deficit including headache, blurry vision, nausea or vomiting, chest pain or shortness of breath. She has nonhealing traumatic hematoma ulcer over the scalp at vertex when she fell down on 11/21/2018 against ramp and sustained traumatic ulcer with hematoma. She was being followed in wound center for that and wound culture on shows enterococcus and MRSA and is on vancomycin. She has bilateral lower extremity edema. She has orthostatic urinary incontinence and urine flows out when she stands up. She walks on a walker with limited mobility within home. Shortness of breath on exertion on walking ramps. [] Past Medical History Past Medical History (Chronic Problems): Chronic Problems (Last Reviewed 12/11/18 @ 18:58 by Farhat Strange MD) Former smoker (Chronic) Grade I diastolic dysfunction (Chronic) Essential hypertension (Chronic) Type 2 diabetes mellitus (Chronic) Venous insufficiency of both lower extremities (Chronic) Open wound of right knee (Chronic) Traumatic,penetratiung with fat layer exposed. Bilateral lower extremity edema (Chronic) Diastolic CHF (Chronic) Iron deficiency anemia (Chronic) etiology unknown Ulcer of right lower extremity with fat layer exposed (Chronic) Ulcer of right foot with fat layer exposed (Chronic) Ulcer of left lower extremity with fat layer exposed (Chronic) PVD (peripheral vascular disease) (Chronic) Edema, lower extremity (Chronic) Presence of stent in coronary artery (Chronic ~08/29/12) PTCA/stent to CX; PTCA/Stent PTCA/stent to prox RCA 05/06; PTCA/LILY in mid to distal RCA 08/29/12 Atherosclerotic heart disease of [place] coronary artery without angina pectoris (Chronic) PTCA/stent to CX; PTCA/Stent PTCA/stent to prox RCA 05/06; PTCA/LIYL in mid to distal RCA 08/29/12; CABG x2 ARREGUIN tp LAD and SVG to OM2 01/02/11 S/P CABG (coronary artery bypass graft) (Chronic ~01/02/11) CABG x2 ARREGUIN tp LAD and SVG to OM2 01/02/11 Paroxysmal atrial fibrillation (Chronic) Hyperlipidemia (Chronic) Medical History: Medical History (Last Reviewed 12/11/18 @ 18:58 by Farhat Strange MD) Essential hypertension (Chronic) I10 Type 2 diabetes mellitus (Chronic) E11.9 Venous insufficiency of both lower extremities (Chronic) I87.2 Diastolic CHF (Chronic) I50.30 Iron deficiency anemia (Chronic) D50.9 etiology unknown Ulcer of right lower extremity with fat layer exposed (Chronic) L97.912 Ulcer of right foot with fat layer exposed (Chronic) L97.512 Ulcer of left lower extremity with fat layer exposed (Chronic) L97.922 PVD (peripheral vascular disease) (Chronic) I73.9 Ulcer of left lower extremity with fat layer exposed (Resolved) L97.922 Edema, lower extremity (Chronic) R60.0 Presence of stent in coronary artery (Chronic) Onset Date: ~08/29/12 Z95.5 PTCA/stent to CX; PTCA/Stent PTCA/stent to prox RCA 05/06; PTCA/LILY in mid to distal RCA 08/29/12 Atherosclerotic heart disease of [place] coronary artery without angina pectoris (Chronic) I25.10 PTCA/stent to CX; PTCA/Stent PTCA/stent to prox RCA 05/06; PTCA/LILY in mid to distal RCA 08/29/12; CABG x2 ARREGUIN tp LAD and SVG to OM2 01/02/11 Paroxysmal atrial fibrillation (Chronic) I48.0 Hyperlipidemia (Chronic) E78.5 Acute cystitis N30.00 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 Cellulitis L03.90 Diabetic ulcer of both lower extremities E11.622, L97.919, L97.929 History of DVT (deep vein thrombosis) Z86.718 Severe sepsis A41.9, R65.20 Trigeminal neuralgia G50.0 Multiple sclerosis G35 LAURITA (obstructive sleep apnea) G47.33 Peripheral vascular disease I73.9 Venous insufficiency of both lower extremities I87.2 Cognitive impairment (Resolved) R41.89 patient is confused at times Cellulitis of right leg L03.115 Allergies codeine Allergy (Unknown, Verified 12/11/18 13:28) Hives cefazolin Allergy (Verified 12/11/18 13:28) Rash ciprofloxacin [From Cipro] Allergy (Verified 12/11/18 13:28) Hives ciprofloxacin HCl [From Cipro] Allergy (Verified 12/11/18 13:28) Hives Latex, Natural Rubber Allergy (Verified 12/11/18 13:28) Rash Penicillins [PCN] Allergy (Verified 12/11/18 13:28) Hives adhesive tape Adverse Reaction (Verified 12/11/18 13:28) Rash Home Medications: Ambulatory Orders Medication Instructions Recorded Amiodarone HCl 200 mg PO DAILY 04/09/18 Duloxetine HCl 60 mg PO DAILY 04/09/18 Magnesium Oxide [Mag-Ox 400] 400 mg PO BID 04/09/18 Metoprolol Tartrate [Lopressor 50 mg PO BID 04/09/18 (beta tommy)] Pantoprazole Sodium [Protonix] 40 mg PO DAILY 04/09/18 Rivaroxaban [Xarelto] 15 mg PO DAILY 04/09/18 Docusate Sodium 100 mg PO DAILY PRN PRN 05/22/18 Ergocalciferol (Vitamin D2) 50,000 unit PO QWEEK 05/22/18 [Vitamin D2] Donepezil HCl 5 mg PO DAILY 08/19/18 Potassium Chloride [Klor-Con M20] 20 meq PO BID 08/19/18 Acetaminophen [Tylenol Tablet] 650 mg PO Q6H PRN PRN tab 08/23/18 Furosemide [Lasix] 60 mg PO DAILY #1 tab 08/23/18 ferrous sulfate 325 mg (65 mg 325 mg PO DAILY 09/25/18 iron) tablet,delayed release gabapentin 300 mg capsule 600 mg PO BID cap 09/25/18 budesonide 180 mcg/actuation 1 inh INHALATION BID inhaler 11/18/18 breath activated powder inhaler Hydrocortisone [Anusol Hc] 25 mg RECTAL BID PRN 12/11/18 Amlodipine [Norvasc] 2.5 mg PO DAILY 12/13/18 Phenazopyridine HCl [Pyridium] 200 mg PO TID 12/13/18 Surgical History: Surgical History (Last Reviewed 12/11/18 @ 18:58 by Farhat Strange MD) S/P CABG (coronary artery bypass graft) (Chronic) Onset Date: ~01/02/11 Z95.1 CABG x2 ARREGUIN tp LAD and SVG to OM2 01/02/11 History of cataract surgery Z98.49 History of cholecystectomy Z98.890, Z90.49 History of hernia repair Z98.890, Z87.19 History of tonsillectomy and adenoidectomy Z98.890 History of total hysterectomy Z98.890, Z90.710 Postsurgical percutaneous transluminal coronary angioplasty (PTCA) status Z98.61 PTCA/stent to CX; PTCA/Stent PTCA/stent to prox RCA 05/06; PTCA/LILY in mid to distal RCA 08/29/12 Presence of coronary angioplasty implant and graft Onset Date: ~08/29/12 Z95.5 PTCA/stent to CX; PTCA/Stent PTCA/stent to prox RCA 05/06; PTCA/LILY in mid to distal RCA 08/29/12 Surgical History: angioplasty, appendectomy, cholecystectomy, coronary bypass surgery, hysterectomy, tonsillectomy, - - R ankle surgery with hardware. placement of stents (cardiac or lower extremity. patient is unsure). excision upper lip carcinoma. Incision and drainage and excisional debridement infected traumatic open hematoma wound right anterior leg (90 cm2) and incision and drainage and excisional debridement infected traumatic open hematoma wound left anterior leg (72 cm2) - 12/29/14. Psychiatric History: No 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 hx HEAD GROWER History: No pertinent HEAD GROWER history Smoking Status: Former smoker Tobacco Use: Non-smoker - *Family History Maternal Family History: Family History (Last Reviewed 12/11/18 @ 18:58 by Farhat Strange MD) Father Heart disease Mother Hypertension Cancer Brother Diabetes Hypertension History Items: Heart Disease, Hypertension Paternal Family History: Family History (Last Reviewed 12/11/18 @ 18:58 by Farhat Strange MD) Father Heart disease Mother Hypertension Cancer Brother Diabetes Hypertension History Items: Heart Disease, Hypertension, - - skin cancer. Sibling Family History: Family History (Last Reviewed 12/11/18 @ 18:58 by Farhat Strange MD) Father Heart disease Mother Hypertension Cancer Brother Diabetes Hypertension History Items: Diabetes Review of Systems Constitutional: Denies: Chills, Fever, Weight Change HEENT: Denies: Head Aches, Sinus Congestion, Sinus Drainage Cardiovascular: Reports: Edema. Denies: Chest Pain, Palpitations Respiratory: Denies: Cough, Shortness of breath at rest, Sputum production Gastrointestinal: Denies: Abdominal Pain, Nausea, Vomiting Genitourinary: Reports: Frequency, Incontinence. Denies: Dysuria Musculoskeletal: Reports: Joint Pain. Denies: Joint Tenderness Skin: Denies: Rash, Wounds Neurological: Reports: Balance problems, Incoordination. Denies: Focal weakness, Numbness, Tingling Psychiatric: Reports: Anxiety, Depression. Denies: Homicidal Ideations, Suicidal Ideations Hematologic/ Lymphatic: Denies: Easy Bruising, Easy Bleeding Patient Problems: Active and Suspected Problems (Last Reviewed 12/11/18 @ 18:58 by Farhat Strange MD) Hypertensive urgency (Acute) - Physical Exam Vitals/I&O's: Vital Signs Temp Pulse Resp BP Pulse Ox 97.9 F 54 L 18 190/62 H 97 12/13/18 13:45 12/13/18 13:45 12/13/18 13:45 12/13/18 13:45 12/13/18 13:45 Oxygen Delivery Method Room Air Weight: 199 lb 15.348 oz Body Mass Index (BMI) 39.0 Finger Stick Blood Glucose 187 Intake and Output for Last 24 Hours 12/11/18 12/12/18 12/13/18 23:59 23:59 23:59 Intake Total 173.33 / 173.33 Balance 173.33 / 173.33 General: Alert, Oriented x3, Cooperative HEENT: Atraumatic, PERRLA, EOMI, Normocephalic Neck: Supple, No JVD, Negative Carotid Bruits Lungs: Clear to auscultation, Normal air movement, No rhonchi, No wheeze, No rales Cardiovascular: Regular rate, Regular Rhythm, Normal S1, Normal S2, No murmurs, - - CABG scar present. Abdomen: Bowel Sounds Present, Soft, Non Tender, Non-Distended Extremities: Capillary Refill Less than 3 Seconds, Diminished Peripheral Pulses, Edema - Bilateral lower extremity edema, pitting in nature below knee level. Scar present on right lower extremity from previous injury. Redness of the both lower legs secondary to venous congestion. Skin: No rashes, No breakdown Musculoskeletal: No Tenderness to Palpation of Joints or Extremities Neurological: Cranial nerves II-XII grossly intact Psych/Mental Status: Normal Affect, Appropriate Laboratory Results 12/13/18 11:00: WBC 11.5 H, RBC 4.16 L, Hgb 12.3, Hct 40.6, MCV 97.6, MCH 29.6, MCHC 30.3 L, RDW Std Deviation 54.2 H, RDW Coeff of Carissa 15.0 H, Plt Count 326, MPV 9.7 12/13/18 11:00: PT 13.1, INR 1.0, APTT 25.7 12/13/18 11:00: Sodium 144, Potassium 3.9, Chloride 109 H, Carbon Dioxide 28.0, Anion Gap 7, BUN 20 H, Creatinine 1.10 H, Est GFR (MDRD) Af Amer 62, Est GFR (MDRD) Non-Af 52 L, BUN/Creatinine Ratio 18.2, Glucose 111 H, Calcium 9.2 12/13/18 11:00: Hemoglobin A1c 5.4 12/13/18 11:53: POC Glucose 96 12/13/18 13:55: WBC 11.7 H, RBC 4.04 L, Hgb 11.7 L, Hct 39.6, MCV 98.0, MCH 29.0, MCHC 29.5 L, RDW Std Deviation 54.6 H, RDW Coeff of Carissa 15.1 H, Plt Count 304, MPV 9.9, ESR 23 12/13/18 13:55: Sodium Pending, Potassium Pending, Chloride Pending, Carbon Dioxide Pending, Anion Gap Pending, BUN Pending, Creatinine Pending, Est GFR (MDRD) Af Amer Pending, Est GFR (MDRD) Non-Af Pending, BUN/Creatinine Ratio Pending, Glucose Pending, Calcium Pending, Total Bilirubin Pending, AST Pending, ALT Pending, Alkaline Phosphatase Pending, C-React Prot Ext Range Pending, Total Protein Pending, Albumin Pending, Prealbumin Pending Current Medications Acetaminophen (Tylenol) 650 mg PO Q6H PRN PRN PRN Reason: Pain Score 1-10/10 Amiodarone HCl (Cordarone) 200 mg PO DAILY [facility] Amlodipine Besylate (Norvasc) 2.5 mg PO DAILY [facility] Budesonide (Pulmicort Aerosol) 0.5 mg INHALATION Q12H.RT [facility] Docusate Sodium (Colace Syrup) 100 mg PO BID [facility] Donepezil HCl (Aricept) 5 mg PO DAILY [facility] Duloxetine HCl (Cymbalta) 60 mg PO DAILY [facility] Ergocalciferol (Vitamin D) 50,000 unit PO QWEEK [facility] Ferrous Sulfate (Ferrous Sulfate) 325 mg PO DAILYCM [facility] Furosemide (Lasix) 60 mg IV X1 ONE Stop: 12/13/18 14:30 Gabapentin (Neurontin) 600 mg PO BID [facility] Hydralazine HCl (Apresoline) 50 mg PO TID [facility] Hydralazine HCl (Apresoline Iv) 10 mg IV Q4H PRN PRN PRN Reason: SBP >180 mmhg Hydrocortisone Acetate (Anusol Hc) 25 mg RECTAL BID PRN PRN Reason: Hemorrhoids Lactated Ringer's () 1,000 mls @ 60 mls/hr IV .[id number] [facility] Vancomycin IV Pharmacy to Dose (1 ea/ Sodium Chloride) 500 mls @ 250 mls/hr IV X1 PRN; Protocol PRN Reason: Rx to Dose Sodium Chloride () 250 mls @ 15 mls/hr IV .[id number] PRN PRN Reason: Saline Flush Vancomycin HCl (Vancomycin) 1,000 mg in 200 mls @ 200 mls/hr IV Q24H [facility] Magnesium Oxide (Mag-Ox 400) 400 mg PO BID [facility] Metoprolol Tartrate (Lopressor (Beta Tommy)) 50 mg PO BID [facility] Nutritional Formula (Ej - [place] Flavor) 1 packet PO BIDCM [facility] Ondansetron HCl (Zofran) 4 mg IV Q6H PRN PRN PRN Reason: NAUSEA Oxycodone HCl (Oxyir) 10 mg PO Q4H PRN PRN PRN Reason: Pain Score 6-10/10 Pantoprazole Sodium (Protonix) 40 mg PO DAILY [facility] Potassium Chloride (K-Dur) 20 meq PO BIDCM [facility] Promethazine HCl (Phenergan Tablet) 25 mg PO Q4H PRN PRN PRN Reason: NAUSEA/VOMITING Sodium Chloride () 10 - 40 ml IV UD PRN PRN Reason: SALINE FLUSH Assessment/Plan All Active Problems (Last Reviewed 12/11/18 @ 18:58 by Farhat Strange MD) Hypertensive urgency (Acute) Open wound of scalp with complication (Acute) Hematoma of scalp (Acute) Lymphedema of both lower extremities (Acute) Acute diastolic (congestive) heart failure (Acute) Acute sepsis (Acute) Allergic dermatitis (Acute) Angioedema (Acute) Adverse drug effect (Acute) Wound of left lower extremity (Acute) Cellulitis (Acute) Metabolic encephalopathy (Resolved) Ulcer of left lower extremity with fat layer exposed (Resolved) Cognitive impairment (Resolved) Open wound of left elbow (Resolved) Open wound of right elbow (Resolved) UTI (urinary tract infection) (Resolved) Wound of right foot (Resolved) The patient is a 73 year old F with multiple comorbidities including coronary artery disease status post bypass surgery December 2010 and a stent in August 2012, paroxysmal A. fib follows Dr. Luna scheduled for surgery today scalp traumatic ulcer with hematoma with Dr. Strange. Surgery was canceled owing to high blood pressure 219/77. She denies any focal symptoms/endorgan deficit including headache, blurry vision, nausea or vomiting, chest pain or shortness of breath. 1. Hypertensive urgency: Exact etiology unclear but her baseline blood pressure remains high, about systolic 150-160. Diastolic blood pressure 70s to 80s most of the time. Heart rate in 50s, sinus rhythm. Twelve-lead EKG ordered. Troponin ordered. She did not had Lasix today therefore Lasix 60 mg IV today and then from tomorrow morning. Amlodipine increased to 5 mg daily. On metoprolol 50 mg twice daily with holding parameter for heart rate less than 60/min. Blood pressure is not controlled even on Lasix and amlodipine, start hydralazine 50 mg 3 times daily. Hydralazine 10 mg every 4 hourly as needed for systolic blood pressure more than 180 mmHg. 2. Nonhealing traumatic ulcer with hematoma over vertex of the scalp with MRSA and MRSE of his scalp.: This happened when she fell down on 11/21/2018 against ramp and sustained traumatic ulcer with hematoma. She was being followed in wound center for that and wound culture on 11/419 shows enterococcus and MRSA and is on vancomycin. Need PICC line for prolonged IV vancomycin. 3. Coronary artery disease status post two-vessel CABG in 2010, cardiac stent, paroxysmal A. fib on Xarelto, peripheral vascular disease and leg edema and mild chronic diastolic heart failure, HFpEF: She had normal pharmacological myocardial perfusion stress test with preserved EF on May 2017. Last echo in April 2018 reported as EF 65% with a stage I diastolic dysfunction, no regional wall motion abnormalities. LA moderately enlarged. Normal right atrium. Normal RV size and systolic function. Mild 1+ eccentric AI. Last EKG on 31 October 2018 shows normal sinus rhythm at 63 bpm 4. Diabetes mellitus type 2 with diabetic neuropathy: A1c is 5.4. Glucose is well controlled. Glucose 96 on BMP Other comorbidities include dyslipidemia, chronic iron deficiency anemia, diabetic ulcer of both lower extremities trigeminal neuralgia, multiple sclerosis, obstructive sleep apnea and chronic venous insufficiency, chronic degenerative joint disease, impaired mobility and gait instability on walker: She was last admitted in December 30, 2018 for left lower extremity cellulitis. DVT prophylaxis: On Xarelto 15 mg daily. Hold about 36 hours prior to surgery. Code Visit Inpatient E&M: 14387 Init Hosp L3
[2018-12-13 14:38] LABS: AST(SGOT) 14 U/L (15-37); Alanine Aminotransfer ALT/SGPT 21 U/L (13-56); Alkaline Phosphatase 80 U/L (45-117); Anion Gap 5 (5-15); BUN 19 mg/dL (7-18); BUN/Creat Ratio 19.4 RATIO (10-20); CRP < 2.90 mg/L (0.0-3.0); Calcium,Total 9.1 mg/dL (8.5-10.1); Chloride 109 mmol/L (98-107); Creatinine, Serum 0.98 mg/dL (0.55-1.02); EST Glomerular Filtration Rate 59 mL/min (>60); Est Glom Filt Rate - Afr Amer 71 mL/min (>60); Estimated Creatinine Clearance 36.18 ml/min; Glucose 96 mg/dL (74-106); Prealbumin 29.4 mg/dL (20.0-40.0); Sodium Level 144 mmol/L (136-145)
--- NOTE | 2018-12-13 14:59 | EKG12_ITS ---
Test Reason : HYPERTENSION Blood Pressure : / mmHG Vent. Rate : 057 BPM Atrial Rate : 057 BPM P-R Int : 168 ms QRS Dur : 084 ms QT Int : 462 ms P-R-T Axes : 037 008 119 degrees QTc Int : [address] & T wave abnormality, consider lateral ischemia Abnormal ECG When compared with ECG of 31-OCT-2018 12:04, No significant change was found Confirmed by SILVIA STUART ([id number]), scientific editor MARÍA RAE ([id number]) on 12/20/2018 11:30:09 AM Referred By: Farhat Strange Confirmed By:SILVIA STUART
--- NOTE | 2018-12-13 15:03 | NURSING ---
wound photo: scalp
[2018-12-13] MEDS: Furosemide 100 MG/10 ML Vial 60 MG IV (15:11)
[2018-12-13 15:25] LABS: Bedside Glucose 73 mg/dL (70-110)
--- NOTE | 2018-12-13 17:10 | RAD_ITS ---
STUDY: X-RAY CHEST REASON FOR EXAM: Female, 73 years old. Shortness of breath TECHNIQUE: Single AP portable view of the chest. COMPARISON: 10/31/2018 FINDINGS: The lungs are clear and expanded. There is no demonstrated pleural abnormality. Sternal cerclage wires and vascular clips are present from a prior sternotomy and coronary artery bypass graft procedure (CABG). Normal mediastinum and alee. Normal visualized pulmonary arteries. Normal visualized aortic arch and descending thoracic aorta. Normal visualized thoracic spine. Normal visualized ribs, clavicles, and shoulders. There is no demonstrated abnormality of the visualized soft tissue structures of the upper abdomen. RAD/Chest 1 View (Portable) IMPRESSION: No acute finding Electronically Signed: Benjamin Doss DO at 21:35 EST Tel , Service support ,
[2018-12-13] MEDS: Rivaroxaban 15 MG Tablet PO (17:16)
[2018-12-13] MEDS: amLODIPine 5 MG Tablet PO (17:23)
[2018-12-13] MEDS: Budesonide Respules 0.5 MG/2 ML AMPUL.NEB. INHALATION (18:40)
[2018-12-13] MEDS: Docusate Sodium 100 MG/10 ML UDC PO (22:38)
[2018-12-13] MEDS: Metoprolol Tartrate 50 MG Tablet PO (22:39)
[2018-12-13] MEDS: Magnesium Oxide 400 MG Tablet PO (22:40)
[2018-12-13] MEDS: Gabapentin 600 MG Tablet PO (22:40)
[2018-12-13] MEDS: hydrALAZINE 50 MG Tablet PO (22:40)
[2018-12-14] VITALS (28 sets, daily range): BP systolic 127–186; BP diastolic 39–110; PULSE 53–75; RESP 16–26; TEMP 36.7–37.2; O2SAT 93–100
[2018-12-14] MEDS: Lactated Ringers 1,000 ML 60 ML IV (03:59)
[2018-12-14] MEDS: hydrALAZINE 50 MG Tablet PO ×3 (06:22→21:02)
[2018-12-14 06:23] LABS: Absolute Lymphocyte Count 2.23 X10^3/uL (0.83-4.51); Absolute Neutrophil Count 7.4 X10^3/uL (2.0-7.7); Basophil# 0.04 X10^3/uL; Basophil% 0.4 % (0-1); Eosinophil# 0.09 X10^3/uL; Eosinophils% 0.8 % (0-5); Hematocrit 38.1 % (37-47); Hemoglobin 11.4 g/dL (12.0-15.0); Lymphocyte # 2.23 X10^3/ul (4.0); Lymphocyte % 20.8 % (19-41); Mean Corp Hgb Conc 29.9 g/dL (32-36); Mean Corpuscular Hgb 29.4 pg (27.0-32.0); Mean Corpuscular Volume 98.2 fL (81-99); Monocyte# 0.91 X10^3/uL; Monocyte% 8.5 % (0-10); NRBC Flagged by Analyzer 0 % (0-5); Neutrophil % 68.9 % (47-70); Platelet Count 294 K/mm3 (150-450); RBC Distribution Width CV 14.7 % (11.6-14.6); RBC Distribution Width SD 53.1 fl (35.1-43.9); Red Blood Count 3.88 M/mm3 (4.2-5.4); White Blood Count 10.7 K/mm3 (4.4-11.0)
[2018-12-14] MEDS: Budesonide Respules 0.5 MG/2 ML AMPUL.NEB. INHALATION (06:48)
[2018-12-14 06:51] LABS: Anion Gap 7 (5-15); BUN 25 mg/dL (7-18); BUN/Creat Ratio 24.3 RATIO (10-20); Calcium,Total 8.7 mg/dL (8.5-10.1); Chloride 106 mmol/L (98-107); Creatinine, Serum 1.03 mg/dL (0.55-1.02); EST Glomerular Filtration Rate 56 mL/min (>60); Est Glom Filt Rate - Afr Amer 67 mL/min (>60); Estimated Creatinine Clearance 34.42 ml/min; Glucose 113 mg/dL (74-106); Sodium Level 144 mmol/L (136-145)
[2018-12-14] MEDS: Magnesium Oxide 400 MG Tablet PO ×2 (09:24→21:02)
[2018-12-14] MEDS: Pantoprazole Sodium 40 MG Tablet PO (09:24)
[2018-12-14] MEDS: Gabapentin 600 MG Tablet PO ×2 (09:24→21:01)
[2018-12-14] MEDS: DULoxetine Hcl 60 MG Capsule PO (09:26)
[2018-12-14] MEDS: Amiodarone 200 MG Tablet PO (09:26)
[2018-12-14] MEDS: Donepezil HCl 5 MG Tablet PO (09:26)
[2018-12-14] MEDS: Furosemide 20 MG Tablet 60 MG PO (09:26)
[2018-12-14] MEDS: Ferrous Sulfate 325 MG Tablet PO (09:26)
[2018-12-14] MEDS: amLODIPine 5 MG Tablet PO (09:32)
[2018-12-14] MEDS: Vancomycin IV 1,000 MG/200 ML BAG 200 MG IV (12:01)
[2018-12-14] MEDS: 0.9% Normal Saline 1,000 ML 50 ML IV (13:00)
[2018-12-14] MEDS: MethylPREDNISolone 125 MG/2 ML Vial 60 MG IV ×3 (13:09→21:03)
[2018-12-14] MEDS: 0.9% Saline Lock 10 ML Syringe IV (13:09)
[2018-12-14] MEDS: DiphenhydrAMINE 50 MG/ML Syringe 25 MG IV (13:09)
--- NOTE | 2018-12-14 13:24 | NURSING ---
1243-CALLED TO PT ROOM BY RELIEF SALESPERSON. RELIEF SALESPERSON STATES PT INCONT OF STOOL, REPORTING SHE DOESN'T FEEL WELL, DIAPHORISIS AND DIFFUSE REDNESS TO FACE AND TRUNK NOTED. UPON ENTERING ROOM ANOTHER RELIEF SALESPERSON IS ASSISTING PT TO RESTROOM D/T PT REPORTS SHE'S GOING TO HAVE MORE DIARRHEA. PT SLUMPED ON TOILET-STATES SHE'S FEELING VERY WEAK, NAUSEATED, DIAPHORETIC. VANCOMYCIN STOPPED. NS FLUSH GIVEN. 1245-CHARGE NURSE,CHRISS, CALLED TO ROOM, MORE NURSES ARRIVED. PT ABLE TO AMB BACK TO BED FROM RESTROOM W/ASSIST X2. DR EVERETT TO ROOM. MEDS ORDERED BY DR EVERETT ADMIN BY INÉS BANKS. VSS- EA=244/70, HR=60, RR=22, YCP9=323% ON O2 AT 4L NC. PT ESCORTED TO ICU VIA BED. DR LOPEZ, DR POWER AND PT'S SON AND DAUGHTER IN LAW NOTIFIED.
--- NOTE | 2018-12-14 13:29 | PN_ITS ---
Patient Problems: Active and Suspected Problems (Last Reviewed 12/13/18 @ 21:23 by Farhat Strange MD) Hypertensive urgency (Acute) Subjective: Patient was on her normal baseline in the morning when I saw her about 9 AM. Then about 1 PM she developed an allergic reaction, lips facial swelling along with face, neck and upper chest redness after she was started on vancomycin although she is on vancomycin since yesterday 12/13/2018. She has Enterococcus faecalis, MRSE and and corynebacterium growing in wound culture on 12/09/2018. Therefore vancomycin was started. Vitals/I&O's: Vital Signs Temp Pulse Resp BP Pulse Ox 98.3 F 70 16 127/72 H 97 12/14/18 08:30 12/14/18 11:30 12/14/18 08:30 12/14/18 11:30 12/14/18 08:30 Oxygen Delivery Method Room Air Weight: 199 lb 15.348 oz Body Mass Index (BMI) 39.0 Finger Stick Blood Glucose 187 Intake and Output for Last 24 Hours 12/12/18 12/13/18 12/14/18 23:59 23:59 23:59 Intake Total 533.33 / 533.33 1649 / 1649 Output Total 2450 / 2450 1450 / 1450 Balance -1916.67 / -1916.67 199 / 199 General: Oriented x3, Cooperative, Lethargic - After Benadryl 50 mg given, - - He was alert awake oriented times 3 in the morning. HEENT: Atraumatic, PERRLA, EOMI, Normocephalic Oral: Dry Mucosa, - - Lips, tongue and oral mucosa swelling. Neck: Supple, No JVD, Negative Carotid Bruits Lungs: Clear to auscultation, No rhonchi, No wheeze, No rales, Diminished - Entry is diminished in bilateral lung bases Cardiovascular: Regular rate, Normal S1, Normal S2, No murmurs, - - CABG scar Abdomen: Bowel Sounds Present, Soft, Non Tender, Non-Distended Extremities: Capillary Refill Less than 3 Seconds, Edema - Both lower extremity edema improved than yesterday 6 Skin: Ulcer/ Wound - Traumatic ulcer with hematoma on his vertex of his scalp, Rash Present - Mild redness over face neck and upper chest secondary to allergic reaction to vancomycin Musculoskeletal: No Tenderness to Palpation of Joints or Extremities, Arthritic Changes, - - Chronic wound scar present on both lower extremities Neurological: Cranial nerves II-XII grossly intact Psych/Mental Status: Normal Affect, Appropriate Laboratory Results 12/13/18 13:55: WBC 11.7 H, RBC 4.04 L, Hgb 11.7 L, Hct 39.6, MCV 98.0, MCH 29.0, MCHC 29.5 L, RDW Std Deviation 54.6 H, RDW Coeff of Carissa 15.1 H, Plt Count 304, MPV 9.9, ESR 23 12/13/18 13:55: Sodium 144, Potassium 4.0, Chloride 109 H, Carbon Dioxide 30.0, Anion Gap 5, BUN 19 H, Creatinine 0.98, Estim Creat Clear Calc 36.18, Est GFR (MDRD) Af Amer 71, Est GFR (MDRD) Non-Af 59 L, BUN/Creatinine Ratio 19.4, Glucose 96, Calcium 9.1, Total Bilirubin 0.80, AST 14 L, ALT 21, Alkaline Phosphatase 80, C-React Prot Ext Range < 2.90, Total Protein 6.0 L, Albumin 3.0 L, Globulin 3.0, Albumin/Globulin Ratio 1.0, Prealbumin 29.4 12/13/18 13:55: Troponin I < 0.015 12/13/18 15:20: POC Glucose 73 12/14/18 05:43: WBC 10.7, RBC 3.88 L, Hgb 11.4 L, Hct 38.1, MCV 98.2, MCH 29.4, MCHC 29.9 L, RDW Std Deviation 53.1 H, RDW Coeff of Carissa 14.7 H, Plt Count 294, MPV 10.0, Immature Gran % (Auto) 0.600, Neut % (Auto) 68.9, Lymph % (Auto) 20.8, [place] % (Auto) 8.5, Eos % (Auto) 0.8, Baso % (Auto) 0.4, Absolute Neuts (auto) 7.4, Absolute Lymphs (auto) 2.23, Nucleated RBC % 0 12/14/18 05:43: Sodium 144, Potassium 4.0, Chloride 106, Carbon Dioxide 31.0, Anion Gap 7, BUN 25 H, Creatinine 1.03 H, Estim Creat Clear Calc 34.42, Est GFR (MDRD) Af Amer 67, Est GFR (MDRD) Non-Af 56 L, BUN/Creatinine Ratio 24.3 H, Glucose 113 H, Calcium 8.7 Current Medications Acetaminophen (Tylenol) 650 mg PO Q6H PRN PRN PRN Reason: Pain Score 1-1010 Amiodarone HCl (Cordarone) 200 mg PO DAILY [facility] Last Admin: 12/14/18 09:26 Dose: 200 mg Documented by: Amlodipine Besylate (Norvasc) 5 mg PO DAILY [facility] Last Admin: 12/14/18 09:32 Dose: 5 mg Documented by: Budesonide (Pulmicort Aerosol) 0.5 mg INHALATION Q12H.RT [facility] Last Admin: 12/14/18 06:48 Dose: 0.5 mg Documented by: Docusate Sodium (Colace) 100 mg PO BID [facility] Last Admin: 12/14/18 09:31 Dose: Not Given Documented by: Donepezil HCl (Aricept) 5 mg PO DAILY [facility] Last Admin: 12/14/18 09:26 Dose: 5 mg Documented by: Duloxetine HCl (Cymbalta) 60 mg PO DAILY [facility] Last Admin: 12/14/18 09:26 Dose: 60 mg Documented by: Ergocalciferol (Vitamin D) 50,000 unit PO QWEEK [facility] Ferrous Sulfate (Ferrous Sulfate) 325 mg PO DAILYCM [facility] Last Admin: 12/14/18 09:26 Dose: 325 mg Documented by: Furosemide (Lasix) 60 mg PO DAILY [facility] Last Admin: 12/14/18 09:26 Dose: 60 mg Documented by: Gabapentin (Neurontin) 600 mg PO BID [facility] Last Admin: 12/14/18 09:24 Dose: 600 mg Documented by: Hydralazine HCl (Apresoline) 50 mg PO TID [facility] Last Admin: 12/14/18 06:22 Dose: 50 mg Documented by: Hydralazine HCl (Apresoline Iv) 10 mg IV Q4H PRN PRN PRN Reason: SBP >180 mmhg Hydrocortisone Acetate (Anusol Hc) 25 mg RECTAL BID PRN PRN Reason: Hemorrhoids Sodium Chloride () 250 mls @ 15 mls/hr IV .[id number] PRN PRN Reason: Saline Flush Sodium Chloride () 1,000 mls @ 50 mls/hr IV .Q20H [facility] Magnesium Oxide (Mag-Ox 400) 400 mg PO BID [facility] Last Admin: 12/14/18 09:24 Dose: 400 mg Documented by: Metoprolol Tartrate (Lopressor (Beta Tommy)) 50 mg PO BID [facility] Last Admin: 12/14/18 09:25 Dose: Not Given Documented by: Nutritional Formula (Ej - [place] Flavor) [facility] Last Admin: 12/14/18 09:28 Dose: Not Given Documented by: Nystatin (Mycostatin Powder) 1 applic TOPICAL BID [facility]; Protocol Ondansetron HCl (Zofran) 4 mg IV Q6H PRN PRN PRN Reason: NAUSEA Oxycodone HCl (Oxyir) 10 mg PO Q4H PRN PRN PRN Reason: Pain Score 6-10/10 Pantoprazole Sodium (Protonix) 40 mg PO DAILY [facility] Last Admin: 12/14/18 09:24 Dose: 40 mg Documented by: Phenazopyridine HCl (Azo Standard) 190 mg PO TID PRN PRN PRN Reason: URINARY BURNING Potassium Chloride (K-Dur) 20 meq [facility] Last Admin: 12/14/18 09:26 Dose: 20 meq Documented by: Promethazine HCl (Phenergan Tablet) 25 mg PO Q4H PRN PRN PRN Reason: NAUSEA/VOMITING Rivaroxaban (Xarelto) 15 mg PO DAILY@1700 [facility] Last Admin: 12/13/18 17:16 Dose: 15 mg Documented by: Sodium Chloride () 10 - 40 ml IV UD PRN PRN Reason: SALINE FLUSH Last Admin: 12/14/18 13:09 Dose: 10 ml Documented by: STROKE Vital Signs/Narrative: Vital Signs Pulse BP 12/14/18 11:30 70 127/72 H 12/14/18 10:59 75 Medical Necessity - Tobacco Use Smoking Status: Former smoker Tobacco Use: Non-smoker Assessment/Plan All Active Problems (Last Reviewed 12/13/18 @ 21:23 by Farhat Strange MD) Hypertensive urgency (Acute) Open wound of scalp with complication (Acute) Hematoma of scalp (Acute) Lymphedema of both lower extremities (Acute) Acute diastolic (congestive) heart failure (Acute) Acute sepsis (Acute) Allergic dermatitis (Acute) Angioedema (Acute) Adverse drug effect (Acute) Wound of left lower extremity (Acute) Cellulitis (Acute) Metabolic encephalopathy (Resolved) Ulcer of left lower extremity with fat layer exposed (Resolved) Cognitive impairment (Resolved) Open wound of left elbow (Resolved) Open wound of right elbow (Resolved) UTI (urinary tract infection) (Resolved) Wound of right foot (Resolved) The patient is a 73 year old F with multiple comorbidities including coronary artery disease status post bypass surgery December 2010 and a stent in August 2012, paroxysmal A. fib follows Dr. Luna scheduled for surgery today scalp traumatic ulcer with hematoma with Dr. Strange. Surgery was canceled owing to high blood pressure 219/77. She denies any focal symptoms/endorgan deficit including headache, blurry vision, nausea or vomiting, chest pain or shortness of breath. Patient was initially admitted in PCU after surgery was canceled. 1. Allergic reaction/facial edema/angioedema of oral mucosa secondary to vancomycin. Patient is transferred to ICU. Patient had 25 mg IV Benadryl, 60 mg IV Solu-Medrol and 20 mg IV Pepcid. Continue Benadryl Solu-Medrol and Pepcid. Patient airway was examined. There is swelling of tongue, lips and oral mucosa with no redness. Monitor airway. Discontinue vancomycin. 2. Hypertensive urgency: Exact etiology unclear but her baseline blood pressure remains high, about systolic 150-160. Diastolic blood pressure 70s to 80s most of the time. Heart rate in 50s, sinus rhythm. Blood pressure also improved, 127/72 most current systolic 150s in ICU patient leg swelling is improved on Lasix 60 mg IV. Patient on amlodipine 5 mg daily, metoprolol and hydralazine 50 mg 3 times daily. Hydralazine IV as needed for systolic blood pressure more than 180 mmHg 3.. Nonhealing traumatic ulcer with hematoma over vertex of the scalp with MRSA and MRSE of his scalp.: This happened when she fell down on 11/21/2018 against ramp and sustained traumatic ulcer with hematoma. She was being followed in wound center for that and wound culture on shows enterococcus and MRSA and WAS on vancomycin. Patient had PICC line. Vancomycin discontinued as mentioned above. Consult ID. Can consider linezolid or doxycycline 4. Coronary artery disease status post two-vessel CABG in 2010, cardiac stent, paroxysmal A. fib on Xarelto, peripheral vascular disease and leg edema and mild chronic diastolic heart failure, HFpEF: She had normal pharmacological myocardial perfusion stress test with preserved EF on May 2017. Last echo in April 2018 reported as EF 65% with a stage I diastolic dysfunction, no regional wall motion abnormalities. LA moderately enlarged. Normal right atrium. Normal RV size and systolic function. Mild 1+ eccentric AI. Last EKG on 31 October 2018 shows normal sinus rhythm at 63 bpm 12/14/2018: Troponin negative. EKG shows sinus bradycardia at [address]-T changes. No significant change from previous EKG. 4. Diabetes mellitus type 2 with diabetic neuropathy: A1c is 5.4. Glucose is well controlled. Glucose 96 on BMP. Other comorbidities include dyslipidemia, chronic iron deficiency anemia, diabetic ulcer of both lower extremities trigeminal neuralgia, multiple sclerosis, obstructive sleep apnea and chronic venous insufficiency, chronic degenerative joint disease, impaired mobility and gait instability on walker: She was last admitted in December 30, 2018 for left lower extremity cellulitis. DVT prophylaxis: On Xarelto 15 mg daily. Hold about 36 hours prior to surgery. Laboratory Results 12/13/18 13:55: Troponin I < 0.015 12/13/18 15:20: POC Glucose 73 12/14/18 05:43: WBC 10.7, RBC 3.88 L, Hgb 11.4 L, Hct 38.1, MCV 98.2, MCH 29.4, MCHC 29.9 L, RDW Std Deviation 53.1 H, RDW Coeff of Carissa 14.7 H, Plt Count 294, MPV 10.0, Immature Gran % (Auto) 0.600, Neut % (Auto) 68.9, Lymph % (Auto) 20.8, [place] % (Auto) 8.5, Eos % (Auto) 0.8, Baso % (Auto) 0.4, Absolute Neuts (auto) 7.4, Absolute Lymphs (auto) 2.23, Nucleated RBC % 0 12/14/18 05:43: Sodium 144, Potassium 4.0, Chloride 106, Carbon Dioxide 31.0, Anion Gap 7, BUN 25 H, Creatinine 1.03 H, Estim Creat Clear Calc 34.42, Est GFR (MDRD) Af Amer 67, Est GFR (MDRD) Non-Af 56 L, BUN/Creatinine Ratio 24.3 H, Glucose 113 H, Calcium 8.7 Clinical Impression(s) from Imaging Studies Chest X-Ray 12/13/18 17:10 IMPRESSION: No acute finding Code Visit Inpatient E&M: 75692 Subs Hosp L3
[2018-12-14] MEDS: Famotidine 200 MG/20 ML MDV 20 MG in 0.9% Normal Saline (Pres. free 8 ML 300 MG IV ×2 (14:48→21:01)
--- NOTE | 2018-12-14 14:50 | NURSING ---
1030 Reviewed charting of SN Mitesh
[2018-12-14] MEDS: Rivaroxaban 15 MG Tablet PO (17:30)
[2018-12-14] MEDS: DiphenhydrAMINE 50 MG/ML Syringe 12.5 MG IV (18:28)
--- NOTE | 2018-12-14 19:57 | PN.SURG_ITS ---
Patient Problems: Active and Suspected Problems (Last Reviewed 12/13/18 @ 21:23 by Farhat Strange MD) Hypertensive urgency (Acute) Subjective: Patient was given IV Vancomycin today and had an allergic reaction with facial swelling and edema. She was placed in ICU and given IV Solu-Medrol. She did not need to be intubated. She is resting comfortably at present. - Physical Exam Vitals/I&O's: Vital Signs Temp Pulse Resp BP Pulse Ox 98.3 F 70 23 H 142/64 H 94 12/14/18 14:15 12/14/18 19:00 12/14/18 19:00 12/14/18 19:00 12/14/18 19:00 Oxygen Flow Rate (L/min) 3 Oxygen Delivery Method Room Air Weight: 199 lb 15.348 oz Body Mass Index (BMI) 39.0 Finger Stick Blood Glucose 187 Intake and Output for Last 24 Hours 12/12/18 12/13/18 12/14/18 23:59 23:59 23:59 Intake Total 533.33 / 533.33 2133.16 / 2133.16 Output Total 2450 / 2450 1800 / 1800 Balance -1916.67 / -1916.67 333.16 / 333.16 General: Alert, Oriented x3 HEENT: PERRLA, EOMI Oral: Moist Mucosa, - - Lip and tongue swelling. Neck: Supple Lungs: Clear to auscultation Cardiovascular: Regular rate, Regular Rhythm Abdomen: Soft, Non-Distended Extremities: No clubbing, No cyanosis, Edema - mild edema in extremities. Skin: Ulcer/ Wound - top of scalp wound with occipital extension is stable. Tolerated Silver dressing change. Some granulation tissue seen. No purulent drainage. Lymphatic: - - no cervical adenopathy. Neurological: Cranial nerves II-XII grossly intact Psych/Mental Status: Normal Affect, Appropriate Laboratory Results 12/14/18 05:43: WBC 10.7, RBC 3.88 L, Hgb 11.4 L, Hct 38.1, MCV 98.2, MCH 29.4, MCHC 29.9 L, RDW Std Deviation 53.1 H, RDW Coeff of Carissa 14.7 H, Plt Count 294, MPV 10.0, Immature Gran % (Auto) 0.600, Neut % (Auto) 68.9, Lymph % (Auto) 20.8, [place] % (Auto) 8.5, Eos % (Auto) 0.8, Baso % (Auto) 0.4, Absolute Neuts (auto) 7.4, Absolute Lymphs (auto) 2.23, Nucleated RBC % 0 12/14/18 05:43: Sodium 144, Potassium 4.0, Chloride 106, Carbon Dioxide 31.0, Anion Gap 7, BUN 25 H, Creatinine 1.03 H, Estim Creat Clear Calc 34.42, Est GFR (MDRD) Af Amer 67, Est GFR (MDRD) Non-Af 56 L, BUN/Creatinine Ratio 24.3 H, Glucose 113 H, Calcium 8.7 Culture from 12/09/18 - Enterococcus faecalis, MRSE, Corynebacterium amycolatum/xer, and Anaerobic cocci. Current Medications Acetaminophen (Tylenol) 650 mg PO Q6H PRN PRN PRN Reason: Pain Score 1-10/10 Amiodarone HCl (Cordarone) 200 mg PO DAILY [facility] Last Admin: 12/14/18 09:26 Dose: 200 mg Documented by: Amlodipine Besylate (Norvasc) 5 mg PO DAILY [facility] Last Admin: 12/14/18 09:32 Dose: 5 mg Documented by: Budesonide (Pulmicort Aerosol) 0.5 mg INHALATION Q12H.RT [facility] Last Admin: 12/14/18 06:48 Dose: 0.5 mg Documented by: Diphenhydramine HCl (Benadryl) 12.5 mg IV Q6H [facility] Stop: 12/16/18 00:46 Last Admin: 12/14/18 18:28 Dose: 12.5 mg Documented by: Docusate Sodium (Colace) 100 mg PO BID [facility] Last Admin: 12/14/18 09:31 Dose: Not Given Documented by: Donepezil HCl (Aricept) 5 mg PO DAILY [facility] Last Admin: 12/14/18 09:26 Dose: 5 mg Documented by: Duloxetine HCl (Cymbalta) 60 mg PO DAILY [facility] Last Admin: 12/14/18 09:26 Dose: 60 mg Documented by: Ergocalciferol (Vitamin D) 50,000 unit PO QWEEK [facility] Ferrous Sulfate (F[facility]ous Sulfate) [facility] Last Admin: 12/14/18 09:26 Dose: 325 mg Documented by: Furosemide (Lasix) 60 mg PO DAILY [facility] Last Admin: 12/14/18 09:26 Dose: 60 mg Documented by: Gabapentin (Neurontin) 600 mg PO BID [facility] Last Admin: 12/14/18 09:24 Dose: 600 mg Documented by: Hydralazine HCl (Apresoline) 50 mg PO TID [facility] Last Admin: 12/14/18 14:49 Dose: 50 mg Documented by: Hydralazine HCl (Apresoline Iv) 10 mg IV Q4H PRN PRN PRN Reason: SBP >180 mmhg Hydrocortisone Acetate (Anusol Hc) 25 mg RECTAL BID PRN PRN Reason: Hemorrhoids Sodium Chloride () 250 mls @ 15 mls/hr IV .[id number] PRN PRN Reason: Saline Flush Sodium Chloride () 1,000 mls @ 50 mls/hr IV .Q20H [facility] Last Infusion: 12/14/18 17:37 Dose: 50 mls/hr Documented by: Famotidine 20 mg/ Sodium (Chloride) 10 mls @ 300 mls/hr IV Q12 [facility] Linezolid (Zyvox 600mg) 600 mg in 300 mls @ 200 mls/hr IV Q12 [facility] Magnesium Oxide (Mag-Ox 400) 400 mg PO BID [facility] Last Admin: 12/14/18 09:24 Dose: 400 mg Documented by: Methylprednisolone (Solu-Medrol) 60 mg IV Q8 [facility] Last Admin: 12/14/18 17:31 Dose: 60 mg Documented by: Metoprolol Tartrate (Lopressor (Beta Tommy)) 50 mg PO BID [facility] Last Admin: 12/14/18 09:25 Dose: Not Given Documented by: Metronidazole (Flagyl) 500 mg PO TID [facility] Nutritional Formula (Ej - [place] Flavor) 1 packet PO BIDCM [facility] Last Admin: 12/14/18 17:31 Dose: Not Given Documented by: Nystatin (Mycostatin Powder) 1 applic TOPICAL BID [facility]; Protocol Ondansetron HCl (Zofran) 4 mg IV Q6H PRN PRN PRN Reason: NAUSEA Oxycodone HCl (Oxyir) 10 mg PO Q4H PRN PRN PRN Reason: Pain Score 6-10/10 Pantoprazole Sodium (Protonix) 40 mg PO DAILY [facility] Last Admin: 12/14/18 09:24 Dose: 40 mg Documented by: Phenazopyridine HCl (Azo Standard) 190 mg PO TID PRN PRN PRN Reason: URINARY BURNING Potassium Chloride (K-Dur) 20 meq PO BIDCM [facility] Last Admin: 12/14/18 17:30 Dose: 20 meq Documented by: Promethazine HCl (Phenergan Tablet) 25 mg PO Q4H PRN PRN PRN Reason: NAUSEA/VOMITING Rivaroxaban (Xarelto) 15 mg PO DAILY@1700 [facility] Last Admin: 12/14/18 17:30 Dose: 15 mg Documented by: Sodium Chloride () 10 - 40 ml IV UD PRN PRN Reason: SALINE FLUSH Last Admin: 12/14/18 13:09 Dose: 10 ml Documented by: Medical Necessity - Tobacco Use Smoking Status: Former smoker Tobacco Use: Non-smoker Assessment/Plan All Active Problems (Last Reviewed 12/13/18 @ 21:23 by Farhat Strange MD) Hypertensive urgency (Acute) Open wound of scalp with complication (Acute) Hematoma of scalp (Acute) Lymphedema of both lower extremities (Acute) Acute diastolic (congestive) heart failure (Acute) Acute sepsis (Acute) Allergic dermatitis (Acute) Angioedema (Acute) Adverse drug effect (Acute) Wound of left lower extremity (Acute) Cellulitis (Acute) Metabolic encephalopathy (Resolved) Ulcer of left lower extremity with fat layer exposed (Resolved) Cognitive impairment (Resolved) Open wound of left elbow (Resolved) Open wound of right elbow (Resolved) UTI (urinary tract infection) (Resolved) Wound of right foot (Resolved) 1. Nonhealing traumatic hematoma wound top of scalp at vertex with occipital extension. 2. Hematoma top of scalp at vertex with occipital extension. 3. Accidental fall. 4. Acute head injury with scalp hematoma without loss of consciousness. 5. Diabetes mellitus. 6. Former smoker. 7. Hypertensive urgency. 8. Facial swelling and edema from allergic reaction to Vancomycin. The scalp wound is stable. She tolerated Silver dressing change today. Some granulation tissue seen. Her wound cultures from 12/09/18 showed Enterococcus faecalis, MRSE, Corynebacterium amycolatum/xer, and Anaerobic cocci. She had an allergic reaction to the Vancomycin today with facial swelling and edema. This prompted a transfer to the ICU for closer monitoring. Solu-Medrol was given. Will change antibiotic to IV Linezolid. Will add Flagyl. Infectious Diseases to see patient on Sunday. Her hypertension urgency has stabilized. She is on Amlodipine, Metoprolol, and Hydralazine. When she is stable from a medical standpoint, will consider operative debridement. With the Silver dressing wound care and antibiotics, if there is improvement in the wound, then may hold off on operative debridement at this time. Would not consider wound closure until the infection has been treated with antibiotics. With her history of being on Xarelto, will lean more toward a skin graft for wound closure rather than a complex flap that would require undermining which would increase the risk of wound healing problems after surgery because of potential bleeding issues from the Xarelto. It was discussed with the patient that she is at risk for developing osteomyelitis. If present, then exterminator helper antibiotics would be necessary along with partial ostectomy for osteomyelitis. At that point, complex wound closure may require evaluation and treatment at a tertiary center as complex flaps using microvascular free tissue transfer may be necessary. Code Visit Inpatient E&M: 30800 Subs Hosp L1 - ICD-10 - S01.00xA, S00.03xA, W19.xxxA, S09.90xA, I16.0, T50.905A, E11.9, Z87.891
[2018-12-14] MEDS: Acetaminophen 325 MG Tablet 650 MG PO (20:48)
[2018-12-14] MEDS: Linezolid 600 MG 600 MG/300 ML BAG 200 MG IV (21:01)
[2018-12-14] MEDS: Metoprolol Tartrate 50 MG Tablet PO (21:02)
[2018-12-14] MEDS: Docusate Sodium 100 MG Capsule PO (21:02)
[2018-12-14] MEDS: metroNIDAZOLE 500 MG Tablet PO (21:02)
[2018-12-14 23:31] LABS: Bedside Glucose 220 mg/dL (70-110)
[2018-12-15] VITALS (23 sets, daily range): BP systolic 135–203; BP diastolic 36–117; PULSE 58–89; RESP 15–23; TEMP 36.3–37.2; O2SAT 94–97
[2018-12-15] MEDS: DiphenhydrAMINE 50 MG/ML Syringe 12.5 MG IV ×4 (00:23→18:22)
[2018-12-15 04:21] LABS: Anion Gap 8 (5-15); BUN 24 mg/dL (7-18); BUN/Creat Ratio 19.5 RATIO (10-20); Calcium,Total 8.8 mg/dL (8.5-10.1); Chloride 106 mmol/L (98-107); Creatinine, Serum 1.23 mg/dL (0.55-1.02); EST Glomerular Filtration Rate 45 mL/min (>60); Est Glom Filt Rate - Afr Amer 55 mL/min (>60); Estimated Creatinine Clearance 28.82 ml/min; Glucose 185 mg/dL (74-106); Magnesium 2.1 mg/dL (1.6-2.6); Potassium 4.2 mmol/L (3.5-5.1); Sodium Level 143 mmol/L (136-145)
[2018-12-15 05:16] LABS: Absolute Lymphocyte Count 0.68 X10^3/uL (0.83-4.51); Absolute Neutrophil Count 14.5 X10^3/uL (2.0-7.7); Basophil# 0.02 X10^3/uL; Basophil% 0.1 % (0-1); Hematocrit 39.6 % (37-47); Hemoglobin 12.2 g/dL (12.0-15.0); Lymphocyte # 0.68 X10^3/ul (4.0); Lymphocyte % 4.4 % (19-41); Mean Corp Hgb Conc 30.8 g/dL (32-36); Mean Corpuscular Hgb 29.8 pg (27.0-32.0); Mean Corpuscular Volume 96.6 fL (81-99); Mean Platelet Vol. 10.5 fl (6.2-12.0); Monocyte# 0.07 X10^3/uL; Monocyte% 0.5 % (0-10); NRBC Flagged by Analyzer 0 % (0-5); Neutrophil # 14.47 X10^3/uL (2.7-7.7); Neutrophil % 94.1 % (47-70); POSITIVE MORPHOLOGY YES; Platelet Count 361 K/mm3 (150-450); RBC Distribution Width CV 14.5 % (11.6-14.6); RBC Distribution Width SD 51.6 fl (35.1-43.9); White Blood Count 15.4 K/mm3 (4.4-11.0)
[2018-12-15 05:30] LABS: Differential Indicated SCAN CRITERIA MET
[2018-12-15] MEDS: hydrALAZINE 50 MG Tablet PO ×3 (06:31→22:32)
[2018-12-15] MEDS: MethylPREDNISolone 125 MG/2 ML Vial 60 MG IV (06:31)
[2018-12-15] MEDS: metroNIDAZOLE 500 MG Tablet PO ×3 (06:33→22:32)
[2018-12-15 07:13] LABS: Platelet Morphology GIANT
[2018-12-15] MEDS: Ferrous Sulfate 325 MG Tablet PO (07:34)
--- NOTE | 2018-12-15 08:22 | PCM.PN.HOSP ---
Patient Problems: Active and Suspected Problems (Last Reviewed 12/13/18 @ 21:23 by Farhat Strange MD) Hypertensive urgency (Acute) Subjective: Patient was confused in ICU. She had one large bowel movement. She also complained of pain in the neck. Heart rate in 60s. Blood pressure 135/36. Pulse ox 95% on room air. Tongue and lip swelling is better and improved. No significant major airway obstruction or stridor noticed. Patient's swallowing and breathing good. Vitals/I&O's: Vital Signs Temp Pulse Resp BP Pulse Ox 97.8 F 61 23 H 135/36 H 95 12/15/18 04:00 12/15/18 06:31 12/15/18 06:00 12/15/18 06:31 12/15/18 06:45 Oxygen Flow Rate (L/min) 3 Oxygen Delivery Method Room Air Weight: 203 lb 0.732 oz Body Mass Index (BMI) 39.0 Finger Stick Blood Glucose 187 Intake and Output for Last 24 Hours 12/13/18 12/14/18 12/15/18 23:59 23:59 23:59 Intake Total 533.33 / 533.33 2613.16 / 2973.16 890 / 890 Output Total 2450 / 2450 1800 / 2050 350 / 350 Balance -1916.67 / -1916.67 813.16 / 923.16 540 / 540 General: Alert, Oriented x3, Cooperative HEENT: Atraumatic, PERRLA, EOMI, Normocephalic Neck: Supple, No JVD, Negative Carotid Bruits Lungs: Clear to auscultation, No rhonchi, No wheeze, No rales, Diminished Cardiovascular: Regular rate, Regular Rhythm, Normal S1, Normal S2, No murmurs Abdomen: Bowel Sounds Present, Soft, Non Tender, Non-Distended Extremities: Capillary Refill Less than 3 Seconds, Edema Skin: Ulcer/ Wound - vault of scalp. Musculoskeletal: No Tenderness to Palpation of Joints or Extremities, Arthritic Changes, - - Scar tissue in both legs Neurological: Cranial nerves II-XII grossly intact Psych/Mental Status: Normal Affect, Appropriate Laboratory Results 12/14/18 23:10: POC Glucose 220 H 12/15/18 03:40: WBC 15.4 H, RBC 4.10 L, Hgb 12.2, Hct 39.6, MCV 96.6, MCH 29.8, MCHC 30.8 L, RDW Std Deviation 51.6 H, RDW Coeff of Carissa 14.5, Plt Count 361, MPV 10.5, Immature Gran % (Auto) 0.900, Neut % (Auto) 94.1 H, Lymph % (Auto) 4.4 L, [place] % (Auto) 0.5, Eos % (Auto) 0.0, Baso % (Auto) 0.1, Absolute Neuts (auto) 14.5 H, Absolute Lymphs (auto) 0.68 L, Nucleated RBC % 0, Plt Morphology Comment GIANT 12/15/18 03:40: Sodium 143, Potassium 4.2, Chloride 106, Carbon Dioxide 29.0, Anion Gap 8, BUN 24 H, Creatinine 1.23 H, Estim Creat Clear Calc 28.82, Est GFR (MDRD) Af Amer 55 L, Est GFR (MDRD) Non-Af 45 L, BUN/Creatinine Ratio 19.5, Glucose 185 H, Calcium 8.8, Magnesium 2.1 Current Medications Acetaminophen (Tylenol) 650 mg PO Q6H PRN PRN PRN Reason: Pain Score 1-10 Last Admin: 12/14/18 20:48 Dose: 650 mg Documented by: Amiodarone HCl (Cordarone) 200 mg PO DAILY [facility] Last Admin: 12/14/18 09:26 Dose: 200 mg Documented by: Amlodipine Besylate (Norvasc) 5 mg PO DAILY [facility] Last Admin: 12/14/18 09:32 Dose: 5 mg Documented by: Budesonide (Pulmicort Aerosol) 0.5 mg INHALATION Q12H.RT [facility] Last Admin: 12/14/18 06:48 Dose: 0.5 mg Documented by: Diphenhydramine HCl (Benadryl) 12.5 mg IV Q6H [facility] Stop: 12/16/18 00:46 Last Admin: 12/15/18 06:30 Dose: 12.5 mg Documented by: Docusate Sodium (Colace) 100 mg PO BID [facility] Last Admin: 12/14/18 21:02 Dose: 100 mg Documented by: Donepezil HCl (Aricept) 5 mg PO DAILY [facility] Last Admin: 12/14/18 09:26 Dose: 5 mg Documented by: Duloxetine HCl (Cymbalta) 60 mg PO DAILY [facility] Last Admin: 12/14/18 09:26 Dose: 60 mg Documented by: Ergocalciferol (Vitamin D) 50,000 unit PO QWEEK [facility] Ferrous Sulfate (Ferrous Sulfate) 325 mg PO DAILYCM [facility] Last Admin: 12/15/18 07:34 Dose: 325 mg Documented by: Furosemide (Lasix) 60 mg PO DAILY [facility] Last Admin: 12/14/18 09:26 Dose: 60 mg Documented by: Gabapentin (Neurontin) 600 mg PO BID [facility] Last Admin: 12/14/18 21:01 Dose: 600 mg Documented by: Hydralazine HCl (Apresoline) 50 mg PO TID [facility] Last Admin: 12/15/18 06:31 Dose: 50 mg Documented by: Hydralazine HCl (Apresoline Iv) 10 mg IV Q4H PRN PRN PRN Reason: SBP >180 mmhg Hydrocortisone Acetate (Anusol Hc) 25 mg RECTAL BID PRN PRN Reason: Hemorrhoids Sodium Chloride () 250 mls @ 15 mls/hr IV .[id number] PRN PRN Reason: Saline Flush Sodium Chloride () 1,000 mls @ 50 mls/hr IV .Q20H [facility] Last Infusion: 12/15/18 06:43 Dose: 50 mls/hr Documented by: Famotidine 20 mg/ Sodium (Chloride) 10 mls @ 300 mls/hr IV Q12 [facility] Last Infusion: 12/14/18 21:03 Dose: Infused Documented by: Linezolid (Zyvox 600mg) 600 mg in 300 mls @ 200 mls/hr IV Q12 [facility] Last Infusion: 12/14/18 22:31 Dose: Infused Documented by: Magnesium Oxide (Mag-Ox 400) 400 mg PO BID [facility] Last Admin: 12/14/18 21:02 Dose: 400 mg Documented by: Methylprednisolone (Solu-Medrol) 60 mg IV Q8 [facility] Last Admin: 12/15/18 06:31 Dose: 60 mg Documented by: Metoprolol Tartrate (Lopressor (Beta Tommy)) 50 mg PO BID [facility] Last Admin: 12/14/18 21:02 Dose: 50 mg Documented by: Metronidazole (Flagyl) 500 mg PO TID [facility] Last Admin: 12/15/18 06:33 Dose: 500 mg Documented by: Nutritional Formula (Ej - [place] Flavor) 1 packet [facility] Last Admin: 12/15/18 07:34 Dose: Not Given Documented by: Nystatin (Mycostatin Powder) 1 applic TOPICAL BID [facility]; Protocol Last Admin: 12/14/18 21:02 Dose: Not Given Documented by: Ondansetron HCl (Zofran) 4 mg IV Q6H PRN PRN PRN Reason: NAUSEA Oxycodone HCl (Oxyir) 10 mg PO Q4H PRN PRN PRN Reason: Pain Score 6-10/10 Oxycodone HCl (Oxyir) 5 mg PO Q4H PRN PRN PRN Reason: Pain Score 4-5/10 Pantoprazole Sodium (Protonix) 40 mg PO DAILY [facility] Last Admin: 12/14/18 09:24 Dose: 40 mg Documented by: Phenazopyridine HCl (Azo Standard) 190 mg PO TID PRN PRN PRN Reason: URINARY BURNING Potassium Chloride (K-Dur) 20 meq [facility] Last Admin: 12/15/18 07:34 Dose: 20 meq Documented by: Promethazine HCl (Phenergan Tablet) 25 mg PO Q4H PRN PRN PRN Reason: NAUSEA/VOMITING Rivaroxaban (Xarelto) 15 mg PO DAILY@1700 [facility] Last Admin: 12/14/18 17:30 Dose: 15 mg Documented by: Sodium Chloride () 10 - 40 ml IV UD PRN PRN Reason: SALINE FLUSH Last Admin: 12/14/18 13:09 Dose: 10 ml Documented by: STROKE Vital Signs/Narrative: Vital Signs Pulse Resp BP BP Pulse Ox 12/15/18 06:45 95 12/15/18 06:31 61 135/36 H 12/15/18 06:00 63 23 H 135/36 H 94 12/15/18 05:00 60 20 H 153/45 H 94 Medical Necessity - Tobacco Use Smoking Status: Former smoker Tobacco Use: Non-smoker Assessment/Plan All Active Problems (Last Reviewed 12/13/18 @ 21:23 by Farhat Strange MD) Hypertensive urgency (Acute) Open wound of scalp with complication (Acute) Hematoma of scalp (Acute) Lymphedema of both lower extremities (Acute) Acute diastolic (congestive) heart failure (Acute) Acute sepsis (Acute) Allergic dermatitis (Acute) Angioedema (Acute) Adverse drug effect (Acute) Wound of left lower extremity (Acute) Cellulitis (Acute) Metabolic encephalopathy (Resolved) Ulcer of left lower extremity with fat layer exposed (Resolved) Cognitive impairment (Resolved) Open wound of left elbow (Resolved) Open wound of right elbow (Resolved) UTI (urinary tract infection) (Resolved) Wound of right foot (Resolved) The patient is a 73 year old F with multiple comorbidities including coronary artery disease status post bypass surgery December 2010 and a stent in August 2012, paroxysmal A. fib follows Dr. Luna scheduled for surgery today scalp traumatic ulcer with hematoma with Dr. Strange. Surgery was canceled owing to high blood pressure 219/77. She denies any focal symptoms/endorgan deficit including headache, blurry vision, nausea or vomiting, chest pain or shortness of breath. Patient was initially admitted in PCU after surgery was canceled. 1. Allergic reaction/facial edema/angioedema of oral mucosa secondary to vancomycin. Patient is transferred to ICU. Patient had 25 mg IV Benadryl, 60 mg IV Solu-Medrol and 20 mg IV Pepcid. Continue Benadryl Solu-Medrol and Pepcid. Patient airway was examined. There is swelling of tongue, lips and oral mucosa with no redness. Monitor airway. Discontinue vancomycin. 12/15/2018: Patent airway. Lips, oral mucosa and tongue swelling have improved. 2. Hypertensive urgency: Exact etiology unclear but her baseline blood pressure remains high, about systolic 150-160. Diastolic blood pressure 70s to 80s most of the time. Heart rate in 50s, sinus rhythm. Blood pressure also improved, 127/72 most current systolic 150s in ICU patient leg swelling is improved on Lasix 60 mg IV. Patient on amlodipine 5 mg daily, metoprolol and hydralazine 50 mg 3 times daily. Hydralazine IV as needed for systolic blood pressure more than 180 mmHg 12/15/2018: Blood pressure is better controlled. Resume Lasix. Discontinue IV fluid. On hydralazine, metoprolol and amlodipine. 3. Nonhealing traumatic ulcer with hematoma over vertex of the scalp with MRSA and MRSE of his scalp.: This happened when she fell down on 11/21/2018 against ramp and sustained traumatic ulcer with hematoma. She was being followed in wound center for that and wound culture on 11/419 shows enterococcus and MRSA and WAS on vancomycin. Patient had PICC line. Vancomycin discontinued as mentioned above. Consult ID. Can consider linezolid or doxycycline 12/15/2028: On IV linezolid. ID consult. 4. Coronary artery disease status post two-vessel CABG in 2010, cardiac stent, paroxysmal A. fib on Xarelto, peripheral vascular disease and leg edema and mild chronic diastolic heart failure, HFpEF: She had normal pharmacological myocardial perfusion stress test with preserved EF on May 2017. Last echo in April 2018 reported as EF 65% with a stage I diastolic dysfunction, no regional wall motion abnormalities. LA moderately enlarged. Normal right atrium. Normal RV size and systolic function. Mild 1+ eccentric AI. Last EKG on 31 October 2018 shows normal sinus rhythm at 63 bpm 12/14/2018: Troponin negative. EKG shows sinus bradycardia at [address]-T changes. No significant change from previous EKG. 4. Diabetes mellitus type 2 with diabetic neuropathy: A1c is 5.4. Glucose is well controlled. Glucose 96 on BMP. Other comorbidities include dyslipidemia, chronic iron deficiency anemia, diabetic ulcer of both lower extremities trigeminal neuralgia, multiple sclerosis, obstructive sleep apnea and chronic venous insufficiency, chronic degenerative joint disease, impaired mobility and gait instability on walker: She was last admitted in December 30, 2018 for left lower extremity cellulitis. Multiple allergy list Chronic neck pain: On oxycodone. DVT prophylaxis: On Xarelto 15 mg daily. Hold about 36 hours prior to surgery. Laboratory Results 12/14/18 23:10: POC Glucose 220 H 12/15/18 03:40: WBC 15.4 H, RBC 4.10 L, Hgb 12.2, Hct 39.6, MCV 96.6, MCH 29.8, MCHC 30.8 L, RDW Std Deviation 51.6 H, RDW Coeff of Carissa 14.5, Plt Count 361, MPV 10.5, Immature Gran % (Auto) 0.900, Neut % (Auto) 94.1 H, Lymph % (Auto) 4.4 L, [place] % (Auto) 0.5, Eos % (Auto) 0.0, Baso % (Auto) 0.1, Absolute Neuts (auto) 14.5 H, Absolute Lymphs (auto) 0.68 L, Nucleated RBC % 0, Plt Morphology Comment GIANT 12/15/18 03:40: Sodium 143, Potassium 4.2, Chloride 106, Carbon Dioxide 29.0, Anion Gap 8, BUN 24 H, Creatinine 1.23 H, Estim Creat Clear Calc 28.82, Est GFR (MDRD) Af Amer 55 L, Est GFR (MDRD) Non-Af 45 L, BUN/Creatinine Ratio 19.5, Glucose 185 H, Calcium 8.8, Magnesium 2.1 Clinical Impression(s) from Imaging Studies Chest X-Ray 12/13/18 17:10 IMPRESSION: No acute finding Code Visit Inpatient E&M: 31946 Subs Hosp L3
[2018-12-15] MEDS: Metoprolol Tartrate 50 MG Tablet PO ×2 (08:51→22:22)
[2018-12-15] MEDS: amLODIPine 5 MG Tablet PO (08:51)
[2018-12-15] MEDS: Furosemide 20 MG Tablet 60 MG PO (08:52)
[2018-12-15] MEDS: Donepezil HCl 5 MG Tablet PO (08:52)
[2018-12-15] MEDS: DULoxetine Hcl 60 MG Capsule PO (08:53)
[2018-12-15] MEDS: Magnesium Oxide 400 MG Tablet PO ×2 (08:53→22:22)
[2018-12-15] MEDS: Gabapentin 600 MG Tablet PO ×2 (08:53→22:22)
[2018-12-15] MEDS: Amiodarone 200 MG Tablet PO (08:53)
[2018-12-15] MEDS: Famotidine 200 MG/20 ML MDV 20 MG in 0.9% Normal Saline (Pres. free 8 ML 300 MG IV ×2 (08:55→22:25)
[2018-12-15] MEDS: Linezolid 600 MG 600 MG/300 ML BAG 200 MG IV ×2 (08:57→22:23)
[2018-12-15] MEDS: Pantoprazole Sodium 40 MG Tablet PO (08:59)
[2018-12-15] MEDS: oxyCODONE 5 MG Tablet PO (10:58)
--- NOTE | 2018-12-15 17:10 | PN.SURG_ITS ---
Patient Problems: Active and Suspected Problems (Last Reviewed 12/13/18 @ 21:23 by Farhat Strange MD) Hypertensive urgency (Acute) Subjective: Patient's swelling has resolved. She has been transferred out of the ICU. She is resting comfortably. - Physical Exam Vitals/I&O's: Vital Signs Temp Pulse Resp BP Pulse Ox 97.9 F 64 18 140/82 H 97 12/15/18 15:43 12/15/18 15:48 12/15/18 15:43 12/15/18 15:43 12/15/18 15:43 Oxygen Flow Rate (L/min) 3 Oxygen Delivery Method Room Air Weight: 203 lb 0.732 oz Body Mass Index (BMI) 39.0 Finger Stick Blood Glucose 187 Intake and Output for Last 24 Hours 12/13/18 12/14/18 12/15/18 23:59 23:59 23:59 Intake Total 533.33 / 533.33 2613.16 / 2973.16 1671.67 / 1671.67 Output Total 2450 / 2450 1800 / 2050 450 / 450 Balance -1916.67 / -1916.67 813.16 / 923.16 1221.67 / 1221.67 General: Alert, Oriented x3 HEENT: PERRLA, EOMI Oral: Moist Mucosa Neck: Supple Lungs: Clear to auscultation Cardiovascular: Regular rate, Regular Rhythm Abdomen: Soft, Non-Distended Extremities: No clubbing, No cyanosis, Edema - mild edema in lower extremities. Skin: Ulcer/ Wound - top of scalp wound with occipital extension is stable. No bleeding seen. Some granulation tissue seen. No purulent drainage. Tolerated Silver dressing change. Lymphatic: - - no cervical adenopathy. Neurological: Cranial nerves II-XII grossly intact Psych/Mental Status: Normal Affect, Appropriate Laboratory Results 12/14/18 23:10: POC Glucose 220 H 12/15/18 03:40: WBC 15.4 H, RBC 4.10 L, Hgb 12.2, Hct 39.6, MCV 96.6, MCH 29.8, MCHC 30.8 L, RDW Std Deviation 51.6 H, RDW Coeff of Carissa 14.5, Plt Count 361, MPV 10.5, Immature Gran % (Auto) 0.900, Neut % (Auto) 94.1 H, Lymph % (Auto) 4.4 L, [place] % (Auto) 0.5, Eos % (Auto) 0.0, Baso % (Auto) 0.1, Absolute Neuts (auto) 14.5 H, Absolute Lymphs (auto) 0.68 L, Nucleated RBC % 0, Plt Morphology Comment GIANT 12/15/18 03:40: Sodium 143, Potassium 4.2, Chloride 106, Carbon Dioxide 29.0, Anion Gap 8, BUN 24 H, Creatinine 1.23 H, Estim Creat Clear Calc 28.82, Est GFR (MDRD) Af Amer 55 L, Est GFR (MDRD) Non-Af 45 L, BUN/Creatinine Ratio 19.5, Glucose 185 H, Calcium 8.8, Magnesium 2.1 Culture from 12/09/18 - Enterococcus faecalis, MRSE, Corynebacterium amycolatum/xer, and Anaerobic cocci. Current Medications Acetaminophen (Tylenol) 650 mg PO Q6H PRN PRN PRN Reason: Pain Score 1-11/14 Last Admin: 12/14/18 20:48 Dose: 650 mg Documented by: Amiodarone HCl (Cordarone) 200 mg PO DAILY [facility] Last Admin: 12/15/18 08:53 Dose: 200 mg Documented by: Amlodipine Besylate (Norvasc) 5 mg PO DAILY [facility] Last Admin: 12/15/18 08:51 Dose: 5 mg Documented by: Budesonide (Pulmicort Aerosol) 0.5 mg INHALATION Q12H.RT [facility] Last Admin: 12/14/18 06:48 Dose: 0.5 mg Documented by: Diphenhydramine HCl (Benadryl) 12.5 mg IV Q6H [facility] Stop: 12/16/18 00:46 Last Admin: 12/15/18 13:55 Dose: 12.5 mg Documented by: Docusate Sodium (Colace) 100 mg PO BID [facility] Last Admin: 12/15/18 08:56 Dose: Not Given Documented by: Donepezil HCl (Aricept) 5 mg PO DAILY [facility] Last Admin: 12/15/18 08:52 Dose: 5 mg Documented by: Duloxetine HCl (Cymbalta) 60 mg PO DAILY [facility] Last Admin: 12/15/18 08:53 Dose: 60 mg Documented by: Ergocalciferol (Vitamin D) 50,000 unit PO QWEEK [facility] Ferrous Sulfate (Ferrous Sulfate) 325 mg PO DAILYCM [facility] Last Admin: 12/15/18 07:34 Dose: 325 mg Documented by: Furosemide (Lasix) 60 mg PO DAILY [facility] Last Admin: 12/15/18 08:52 Dose: 60 mg Documented by: Gabapentin (Neurontin) 600 mg PO BID [facility] Last Admin: 12/15/18 08:53 Dose: 600 mg Documented by: Hydralazine HCl (Apresoline) 50 mg PO TID [facility] Last Admin: 12/15/18 13:55 Dose: 50 mg Documented by: Hydralazine HCl (Apresoline Iv) 10 mg IV Q4H PRN PRN PRN Reason: SBP >180 mmhg Hydrocortisone Acetate (Anusol Hc) 25 mg RECTAL BID PRN PRN Reason: Hemorrhoids Sodium Chloride () 250 mls @ 15 mls/hr IV .[id number] PRN PRN Reason: Saline Flush Famotidine 20 mg/ Sodium (Chloride) 10 mls @ 300 mls/hr IV Q12 [facility] Last Infusion: 12/15/18 08:57 Dose: Infused Documented by: Linezolid (Zyvox 600mg) 600 mg in 300 mls @ 200 mls/hr IV Q12 [facility] Last Infusion: 12/15/18 13:46 Dose: Infused Documented by: Magnesium Oxide (Mag-Ox 400) 400 mg PO BID [facility] Last Admin: 12/15/18 08:53 Dose: 400 mg Documented by: Metoprolol Tartrate (Lopressor (Beta Tommy)) 50 mg PO BID [facility] Last Admin: 12/15/18 08:51 Dose: 50 mg Documented by: Metronidazole (Flagyl) 500 mg PO TID [facility] Last Admin: 12/15/18 13:56 Dose: 500 mg Documented by: Nutritional Formula ([facility] [place] [facility]) [facility] Last Admin: 12/15/18 15:44 Dose: Not Given Documented by: Nystatin (Mycostatin Powder) 1 applic TOPICAL BID [facility]; Protocol Last Admin: 12/15/18 11:35 Dose: Not Given Documented by: Ondansetron HCl (Zofran) 4 mg IV Q6H PRN PRN PRN Reason: NAUSEA Oxycodone HCl (Oxyir) 10 mg PO Q4H PRN PRN PRN Reason: Pain Score 6-10/10 Oxycodone HCl (Oxyir) 5 mg PO Q4H PRN PRN PRN Reason: Pain Score 4-5/10 Last Admin: 12/15/18 10:58 Dose: 5 mg Documented by: Pantoprazole Sodium (Protonix) 40 mg PO DAILY [facility] Last Admin: 12/15/18 08:59 Dose: 40 mg Documented by: Phenazopyridine HCl (Azo Standard) 190 mg PO TID PRN PRN PRN Reason: URINARY BURNING Potassium Chloride (K-Dur) 20 meq PO BIDCM [facility] Last Admin: 12/15/18 07:34 Dose: 20 meq Documented by: Promethazine HCl (Phenergan Tablet) 25 mg PO Q4H PRN PRN PRN Reason: NAUSEA/VOMITING Rivaroxaban (Xarelto) 15 mg PO DAILY@1700 [facility] Last Admin: 12/14/18 17:30 Dose: 15 mg Documented by: Sodium Chloride () 10 - 40 ml IV UD PRN PRN Reason: SALINE FLUSH Last Admin: 12/14/18 13:09 Dose: 10 ml Documented by: Medical Necessity - Tobacco Use Smoking Status: Former smoker Tobacco Use: Non-smoker Assessment/Plan All Active Problems (Last Reviewed 12/13/18 @ 21:23 by Farhat Strange MD) Hypertensive urgency (Acute) Open wound of scalp with complication (Acute) Hematoma of scalp (Acute) Lymphedema of both lower extremities (Acute) Acute diastolic (congestive) heart failure (Acute) Acute sepsis (Acute) Allergic dermatitis (Acute) Angioedema (Acute) Adverse drug effect (Acute) Wound of left lower extremity (Acute) Cellulitis (Acute) Metabolic encephalopathy (Resolved) Ulcer of left lower extremity with fat layer exposed (Resolved) Cognitive impairment (Resolved) Open wound of left elbow (Resolved) Open wound of right elbow (Resolved) UTI (urinary tract infection) (Resolved) Wound of right foot (Resolved) 1. Nonhealing traumatic hematoma wound top of scalp at vertex with occipital extension. 2. Hematoma top of scalp at vertex with occipital extension. 3. Accidental fall. 4. Acute head injury with scalp hematoma without loss of consciousness. 5. Diabetes mellitus. 6. Former smoker. 7. Hypertensive urgency. 8. Facial swelling and edema from allergic reaction to Vancomycin. The scalp wound is stable. She tolerated Silver dressing change today. Some granulation tissue seen. No bleeding seen. Her wound cultures from 12/09/18 showed Enterococcus faecalis, MRSE, Corynebacterium amycolatum/xer, and Anaerobic cocci. She had an allergic reaction to the Vancomycin today with facial swelling and edema. This prompted a transfer to the ICU for closer monitoring. Solu-Medrol was given. The swelling and edema has resolved. She is transferred out of the ICU. Continue Linezolid and Flagyl. Infectious Diseases to see patient today. Her hypertension urgency has stabilized. She is on Amlodipine, Metoprolol, and Hydralazine. When she is stable from a medical standpoint, will consider operative debridement. With the Silver dressing wound care and antibiotics, if there is improvement in the wound, then may hold off on operative debridement at this time. Would not consider wound closure until the infection has been treated with antibiotics. With her history of being on Xarelto, will lean more toward a skin graft for wound closure rather than a complex flap that would require undermining which would increase the risk of wound healing problems after surgery because of potential bleeding issues from the Xarelto. It was discussed with the patient that she is at risk for developing osteomyelitis. If present, then correction antibiotics would be necessary along with partial ostectomy for osteomyelitis. At that point, complex wound closure may require evaluation and treatment at a tertiary center as complex flaps using microvascular free tissue transfer may be necessary. Code Visit Inpatient E&M: 36587 Subs Hosp L1 - ICD-10 - S01.00xA, s00.03xA, W19.xxxA, S09.90xA, I16.0, T50.905A, E11.9, Z87.891
[2018-12-15] MEDS: Rivaroxaban 15 MG Tablet PO (17:29)
--- NOTE | 2018-12-15 21:00 | NURSING ---
PATIENT MOVED TO ROOM 101 DUE TO CONFUSION AND TRYING TO GET OUT OF BED
[2018-12-15] MEDS: Nystatin Powder 15gm Bottle 1 APPLIC TOPICAL (22:23)
[2018-12-16] VITALS (18 sets, daily range): BP systolic 131–162; BP diastolic 54–94; PULSE 54–64; RESP 16–18; TEMP 36.6–36.9; O2SAT 89–95
[2018-12-16] MEDS: hydrALAZINE 50 MG Tablet PO ×3 (05:50→22:14)
[2018-12-16] MEDS: metroNIDAZOLE 500 MG Tablet PO ×3 (05:52→22:14)
[2018-12-16] MEDS: Budesonide Respules 0.5 MG/2 ML AMPUL.NEB. INHALATION ×2 (07:00→19:30)
[2018-12-16] MEDS: Ferrous Sulfate 325 MG Tablet PO (09:50)
[2018-12-16] MEDS: Donepezil HCl 5 MG Tablet PO (09:51)
[2018-12-16] MEDS: Amiodarone 200 MG Tablet PO (09:52)
[2018-12-16] MEDS: Furosemide 20 MG Tablet 60 MG PO (09:53)
[2018-12-16] MEDS: DULoxetine Hcl 60 MG Capsule PO (09:53)
[2018-12-16] MEDS: Nystatin Powder 15gm Bottle 1 APPLIC TOPICAL ×2 (09:55→22:15)
[2018-12-16] MEDS: Magnesium Oxide 400 MG Tablet PO ×2 (09:55→22:15)
[2018-12-16] MEDS: Gabapentin 600 MG Tablet PO ×2 (09:56→22:15)
[2018-12-16] MEDS: Famotidine 20 MG Tablet PO (09:58)
[2018-12-16] MEDS: Pantoprazole Sodium 40 MG Tablet PO (09:58)
[2018-12-16] MEDS: amLODIPine 5 MG Tablet PO (10:01)
[2018-12-16] MEDS: Linezolid 600 MG 600 MG/300 ML BAG 200 MG IV ×2 (10:04→22:15)
--- NOTE | 2018-12-16 10:30 | CASEMGMT ---
Dr. Strange states that pt should go to SNF at discharge and that pt agreeable at this time. This RN CM to room and pt states that she would like to go to SNF, 'if insurance will approve it' and states would like VM. Bakari stuart at this time, voices understanding. Pt has not been seen by PT/OT yet at this time. Alexander CONTE CM
--- NOTE | 2018-12-16 10:39 | PN.SURG_ITS ---
Patient Problems: Active and Suspected Problems (Last Reviewed 12/13/18 @ 21:23 by Farhat Strange MD) Hypertensive urgency (Acute) Subjective: Patient is resting comfortably. She is a little unsteady on her feet with ambulation. - Physical Exam Vitals/I&O's: Vital Signs Temp Pulse Resp BP Pulse Ox 98 F 56 L 16 155/94 H 94 12/16/18 08:45 12/16/18 09:54 12/16/18 08:45 12/16/18 09:54 12/16/18 08:45 Oxygen Flow Rate (L/min) 3 Oxygen Delivery Method Room Air Weight: 201 lb 11.567 oz Body Mass Index (BMI) 39.0 Finger Stick Blood Glucose 187 Intake and Output for Last 24 Hours 12/14/18 12/15/18 12/16/18 23:59 23:59 23:59 Intake Total 2613.16 / 2973.16 2487.67 / 2487.67 247.25 / 247.25 Output Total 1800 / 2050 650 / 650 Balance 813.16 / 923.16 1837.67 / 1837.67 247.25 / 247.25 General: Alert, Oriented x3 HEENT: PERRLA, EOMI Oral: Moist Mucosa Neck: Supple Lungs: Clear to auscultation Cardiovascular: Regular rate, Regular Rhythm Abdomen: Soft, Non-Distended Extremities: No clubbing, No cyanosis, Edema - mild edema in lower extremities. Skin: Ulcer/ Wound Lymphatic: - - no cervical adenopathy. Neurological: Cranial nerves II-XII grossly intact Psych/Mental Status: Normal Affect, Appropriate Culture from 12/09/18 - Enterococcus faecalis, MRSE, Corynebacterium amycolatum/xer, and Anaerobic cocci. Current Medications Acetaminophen (Tylenol) 650 mg PO Q6H PRN PRN PRN Reason: Pain Score 1-11/14 Last Admin: 12/14/18 20:48 Dose: 650 mg Documented by: Amiodarone HCl (Cordarone) 200 mg PO DAILY [facility] Last Admin: 12/16/18 09:52 Dose: 200 mg Documented by: Amlodipine Besylate (Norvasc) 5 mg PO DAILY [facility] Last Admin: 12/16/18 10:01 Dose: 5 mg Documented by: Budesonide (Pulmicort Aerosol) 0.5 mg INHALATION Q12H.RT [facility] Last Admin: 12/16/18 07:00 Dose: 0.5 mg Documented by: Docusate Sodium (Colace) 100 mg PO BID [facility] Last Admin: 12/16/18 09:52 Dose: Not Given Documented by: Donepezil HCl (Aricept) 5 mg PO DAILY [facility] Last Admin: 12/16/18 09:51 Dose: 5 mg Documented by: Duloxetine HCl (Cymbalta) 60 mg PO DAILY [facility] Last Admin: 12/16/18 09:53 Dose: 60 mg Documented by: Ergocalciferol (Vitamin D) 50,000 unit PO QWEEK [facility] Last Admin: 12/16/18 09:59 Dose: 50,000 unit Documented by: Famotidine (Pepcid) 20 mg PO DAILY [facility] Last Admin: 12/16/18 09:58 Dose: 20 mg Documented by: Ferrous Sulfate (Ferrous Sulfate) 325 mg PO DAILYCM [facility] Last Admin: 12/16/18 09:50 Dose: 325 mg Documented by: Furosemide (Lasix) 60 mg PO DAILY [facility] Last Admin: 12/16/18 09:53 Dose: 60 mg Documented by: Gabapentin (Neurontin) 600 mg PO BID [facility] Last Admin: 12/16/18 09:56 Dose: 600 mg Documented by: Hydralazine HCl (Apresoline) 50 mg PO TID [facility] Last Admin: 12/16/18 05:50 Dose: 50 mg Documented by: Hydralazine HCl (Apresoline Iv) 10 mg IV Q4H PRN PRN PRN Reason: SBP >180 mmhg Hydrocortisone Acetate (Anusol Hc) 25 mg RECTAL BID PRN PRN Reason: Hemorrhoids Sodium Chloride () 250 mls @ 15 mls/hr IV .[id number] PRN PRN Reason: Saline Flush Last Infusion: 12/16/18 10:04 Dose: 0 mls/hr Documented by: Linezolid (Zyvox 600mg) 600 mg in 300 mls @ 200 mls/hr IV Q12 [facility] Last Admin: 12/16/18 10:04 Dose: 200 mls/hr Documented by: Magnesium Oxide (Mag-Ox 400) 400 mg PO BID [facility] Last Admin: 12/16/18 09:55 Dose: 400 mg Documented by: Metoprolol Tartrate (Lopressor (Beta Tommy)) 50 mg PO BID [facility] Last Admin: 12/16/18 09:54 Dose: Not Given Documented by: Metronidazole (Flagyl) 500 mg PO TID [facility] Last Admin: 12/16/18 05:52 Dose: 500 mg Documented by: Nutritional Formula (Ej - [place] Fl[facility]) [facility] Last Admin: 12/16/18 09:50 Dose: Not Given Documented by: Nystatin (Mycostatin Powder) 1 applic TOPICAL BID [facility]; Protocol Last Admin: 12/16/18 09:55 Dose: 1 appful Documented by: Ondansetron HCl (Zofran) 4 mg IV Q6H PRN PRN PRN Reason: NAUSEA Oxycodone HCl (Oxyir) 10 mg PO Q4H PRN PRN PRN Reason: Pain Score 6-10/10 Oxycodone HCl (Oxyir) 5 mg PO Q4H PRN PRN PRN Reason: Pain Score 4-5/10 Last Admin: 12/15/18 10:58 Dose: 5 mg Documented by: Pantoprazole Sodium (Protonix) 40 mg PO DAILY [facility] Last Admin: 12/16/18 09:58 Dose: 40 mg Documented by: Phenazopyridine HCl (Azo Standard) 190 mg PO TID PRN PRN PRN Reason: URINARY BURNING Potassium Chloride (K[facility]Dur) [facility] Last Admin: 12/16/18 09:50 Dose: 20 meq Documented by: Promethazine HCl (Phenergan Tablet) 25 mg PO Q4H PRN PRN PRN Reason: NAUSEA/VOMITING Rivaroxaban (Xarelto) 15 mg PO DAILY@1700 [facility] Last Admin: 12/15/18 17:29 Dose: 15 mg Documented by: Sodium Chloride () 10 - 40 ml IV UD PRN PRN Reason: SALINE FLUSH Last Admin: 12/14/18 13:09 Dose: 10 ml Documented by: Medical Necessity - Tobacco Use Smoking Status: Former smoker Tobacco Use: Non-smoker Assessment/Plan All Active Problems (Last Reviewed 12/13/18 @ 21:23 by Farhat Strange MD) Hypertensive urgency (Acute) Open wound of scalp with complication (Acute) Hematoma of scalp (Acute) Lymphedema of both lower extremities (Acute) Acute diastolic (congestive) heart failure (Acute) Acute sepsis (Acute) Allergic dermatitis (Acute) Angioedema (Acute) Adverse drug effect (Acute) Wound of left lower extremity (Acute) Cellulitis (Acute) Metabolic encephalopathy (Resolved) Ulcer of left lower extremity with fat layer exposed (Resolved) Cognitive impairment (Resolved) Open wound of left elbow (Resolved) Open wound of right elbow (Resolved) UTI (urinary tract infection) (Resolved) Wound of right foot (Resolved) 1. Nonhealing traumatic hematoma wound top of scalp at vertex with occipital extension. 2. Hematoma top of scalp at vertex with occipital extension. 3. Accidental fall. 4. Acute head injury with scalp hematoma without loss of consciousness. 5. Diabetes mellitus. 6. Former smoker. 7. Hypertensive urgency, stable. 8. Facial swelling and edema from allergic reaction to Vancomycin, resolved. The scalp wound is stable. She tolerated Silver dressing change today. Some granulation tissue seen. No bleeding seen. Her wound cultures from 12/09/18 showed Enterococcus faecalis, MRSE, Corynebacterium amycolatum/xer, and Anaerobic cocci. Continue Linezolid and Flagyl. Infectious Diseases to see patient today. Her hypertension urgency has stabilized. She is on Amlodipine, Metoprolol, and Hydralazine. With the Silver dressing wound care and antibiotics, there is improvement in the wound. So will hold off on operative debridement at this time. Would not consider wound closure until the infection has been treated with antibiotics. With her history of being on Xarelto, will lean more toward a skin graft for wound closure rather than a complex flap that would require undermining which would increase the risk of wound healing problems after surgery because of potential bleeding issues from the Xarelto. It was discussed with the patient that she is at risk for developing osteomyelitis. If present, then prison antibiotics would be necessary along with partial ostectomy for osteomyelitis. At that point, complex wound closure may require evaluation and treatment at a tertiary center as complex flaps using microvascular free tissue transfer may be necessary. She is a little unsteady on her feet with ambulation. Will have PT evaluate and treat. She may benefit from a short stay at an [facility]. Will evaluate. Code Visit Inpatient E&M: 58916 Subs Hosp L1 - ICD-10 - S01.00xA, s00.03xA, W19.xxxA, S09.90xA, I16.0, T50.905A, E11.9, z87.891
--- NOTE | 2018-12-16 10:47 | PN_ITS ---
Patient Problems: Active and Suspected Problems (Last Reviewed 12/13/18 @ 21:23 by Farhat Strange MD) Hypertensive urgency (Acute) Subjective: Doing well, no issues overnight. Swelling is resolved. Vitals/I&O's: Vital Signs Temp Pulse Resp BP Pulse Ox 98 F 56 L 16 155/94 H 94 12/16/18 08:45 12/16/18 09:54 12/16/18 08:45 12/16/18 09:54 12/16/18 08:45 Oxygen Flow Rate (L/min) 3 Oxygen Delivery Method Room Air Weight: 201 lb 11.567 oz Body Mass Index (BMI) 39.0 Finger Stick Blood Glucose 187 Intake and Output for Last 24 Hours 12/14/18 12/15/18 12/16/18 23:59 23:59 23:59 Intake Total 2613.16 / 2973.16 2487.67 / 2487.67 247.25 / 247.25 Output Total 1800 / 0 650 / 650 Balance 813.16 / 923.16 1837.67 / 1837.67 247.25 / 247.25 General: Alert, Oriented x3, Cooperative, No apparent distress HEENT: Atraumatic, PERRLA, EOMI, Normocephalic Oral: Moist Mucosa Neck: Supple, No JVD Lungs: Clear to auscultation, Normal air movement, No rhonchi, No wheeze, No rales, Diminished Cardiovascular: Regular rate, Regular Rhythm, Normal S1, Normal S2, No murmurs Abdomen: Soft, Non Tender, Non-Distended, No Hepato-splenomegaly Extremities: Capillary Refill Less than 3 Seconds, Edema - 1+ nonpitting edema bilaterally Skin: No rashes, No breakdown, Incision - Dressing over her scalp is intact Neurological: Neuro grossly intact, Sensory exam intact to light touch and pain Psych/Mental Status: Normal Affect, Appropriate Current Medications Acetaminophen (Tylenol) 650 mg PO Q6H PRN PRN PRN Reason: Pain Score 1-11/14 Last Admin: 12/14/18 20:48 Dose: 650 mg Documented by: Amiodarone HCl (Cordarone) 200 mg PO DAILY [facility] Last Admin: 12/16/18 09:52 Dose: 200 mg Documented by: Amlodipine Besylate (Norvasc) 5 mg PO DAILY [facility] Last Admin: 12/16/18 10:01 Dose: 5 mg Documented by: Budesonide (Pulmicort Aerosol) 0.5 mg INHALATION Q12H.RT [facility] Last Admin: 12/16/18 07:00 Dose: 0.5 mg Documented by: Docusate Sodium (Colace) 100 mg PO BID [facility] Last Admin: 12/16/18 09:52 Dose: Not Given Documented by: Donepezil HCl (Aricept) 5 mg PO DAILY [facility] Last Admin: 12/16/18 09:51 Dose: 5 mg Documented by: Duloxetine HCl (Cymbalta) 60 mg PO DAILY [facility] Last Admin: 12/16/18 09:53 Dose: 60 mg Documented by: Ergocalciferol (Vitamin D) 50,000 unit PO QWEEK [facility] Last Admin: 12/16/18 09:59 Dose: 50,000 unit Documented by: Famotidine (Pepcid) 20 mg PO DAILY [facility] Last Admin: 12/16/18 09:58 Dose: 20 mg Documented by: Ferrous Sulfate (Ferrous Sulfate) 325 mg PO DAILYCM [facility] Last Admin: 12/16/18 09:50 Dose: 325 mg Documented by: Furosemide (Lasix) 60 mg PO DAILY [facility] Last Admin: 12/16/18 09:53 Dose: 60 mg Documented by: Gabapentin (Neurontin) 600 mg PO BID [facility] Last Admin: 12/16/18 09:56 Dose: 600 mg Documented by: Hydralazine HCl (Apresoline) 50 mg PO TID [facility] Last Admin: 12/16/18 05:50 Dose: 50 mg Documented by: Hydralazine HCl (Apresoline Iv) 10 mg IV Q4H PRN PRN PRN Reason: SBP >180 mmhg Hydrocortisone Acetate (Anusol Hc) 25 mg RECTAL BID PRN PRN Reason: Hemorrhoids Sodium Chloride () 250 mls @ 15 mls/hr IV .[id number] PRN PRN Reason: Saline Flush Last Infusion: 12/16/18 10:04 Dose: 0 mls/hr Documented by: Linezolid (Zyvox 600mg) 600 mg in 300 mls @ 200 mls/hr IV Q12 [facility] Last Admin: 12/16/18 10:04 Dose: 200 mls/hr Documented by: Magnesium Oxide (Mag-Ox 400) 400 mg PO BID [facility] Last Admin: 12/16/18 09:55 Dose: 400 mg Documented by: Metoprolol Tartrate (Lopressor (Beta Tommy)) 50 mg PO BID [facility] Last Admin: 12/16/18 09:54 Dose: Not Given Documented by: Metronidazole (Flagyl) 500 mg PO TID [facility] Last Admin: 12/16/18 05:52 Dose: 500 mg Documented by: Nutritional Formula (Ej - [place] Flavor) [facility] Last Admin: 12/16/18 09:50 Dose: Not Given Documented by: Nystatin (Mycostatin Powder) 1 applic TOPICAL BID [facility]; Protocol Last Admin: 12/16/18 09:55 Dose: 1 appful Documented by: Ondansetron HCl (Zofran) 4 mg IV Q6H PRN PRN PRN Reason: NAUSEA Oxycodone HCl (Oxyir) 10 mg PO Q4H PRN PRN PRN Reason: Pain Score 6-10/10 Oxycodone HCl (Oxyir) 5 mg PO Q4H PRN PRN PRN Reason: Pain Score 4-5/10 Last Admin: 12/15/18 10:58 Dose: 5 mg Documented by: Pantoprazole Sodium (Protonix) 40 mg PO DAILY [facility] Last Admin: 12/16/18 09:58 Dose: 40 mg Documented by: Phenazopyridine HCl (Azo Standard) 190 mg PO TID PRN PRN PRN Reason: URINARY BURNING Potassium Chloride (K-Dur) 20 meq PO BIDCM [facility] Last Admin: 12/16/18 09:50 Dose: 20 meq Documented by: Promethazine HCl (Phenergan Tablet) 25 mg PO Q4H PRN PRN PRN Reason: NAUSEA/VOMITING Rivaroxaban (Xarelto) 15 mg PO DAILY@1700 [facility] Last Admin: 12/15/18 17:29 Dose: 15 mg Documented by: Sodium Chloride () 10 - 40 ml IV UD PRN PRN Reason: SALINE FLUSH Last Admin: 12/14/18 13:09 Dose: 10 ml Documented by: STROKE Vital Signs/Narrative: Vital Signs Temp Pulse Resp BP Pulse Ox 12/16/18 09:54 56 L 155/94 H 12/16/18 08:45 98 F 56 L 16 155/94 H 94 12/16/18 07:02 56 L 12/16/18 07:00 55 L 16 89 Medical Necessity - Tobacco Use Smoking Status: Former smoker Tobacco Use: Non-smoker Assessment/Plan All Active Problems (Last Reviewed 12/13/18 @ 21:23 by Farhat Strange MD) Hypertensive urgency (Acute) Open wound of scalp with complication (Acute) Hematoma of scalp (Acute) Lymphedema of both lower extremities (Acute) Acute diastolic (congestive) heart failure (Acute) Acute sepsis (Acute) Allergic dermatitis (Acute) Angioedema (Acute) Adverse drug effect (Acute) Wound of left lower extremity (Acute) Cellulitis (Acute) Metabolic encephalopathy (Resolved) Ulcer of left lower extremity with fat layer exposed (Resolved) Cognitive impairment (Resolved) Open wound of left elbow (Resolved) Open wound of right elbow (Resolved) UTI (urinary tract infection) (Resolved) Wound of right foot (Resolved) 1. Allergic reaction and angioedema secondary to vancomycin/traumatic ulcer with hematoma with MRSA and MRSE -Resolved -ID consulted -On Zyvox and Flagyl 2. Hypertensive urgency/CAD status post CABG and stent/paroxysmal A. fib/peripheral vascular disease/mild chronic diastolic heart failure/HLD -Blood pressure has stabilized -Last echo in April 2018 with an EF of 65% and stage I diastolic dysfunction -Continue with amiodarone, Norvasc, metoprolol, Lasix -She still on Xarelto, and she is medically stable for any further procedures that she would need therefore we will leave it up to the primary service to decide when they would like to hold her Xarelto based on their plans for the OR 3. GERD -Stable -Continue with PPI 4. Anxiety/depression/dementia -Stable -Continue with donepezil, Cymbalta DVT: Xarelto Code Visit Inpatient E&M: 70600 Subs Hosp L2
--- NOTE | 2018-12-16 11:31 | NURSING ---
wound photo: scalp
--- NOTE | 2018-12-16 12:20 | PCM.HP.ID ---
Problem List (1) Open wound of scalp with complication Status: Acute Comment: 4 cm nonhealing traumatic hematoma wound top of scalp at vertex with occipital extension Reason for Consult: infected scalp wound Consulted by: Dr. Strange History of Present Illness: The patient is a 73 year old F with h/o DM, presented 12/12 for planned surgical debridement of scalp wound. Issue started with fall mid November, hit her head after falling on a ramp. Had bleeding, came to ED, wound was cleaned and sutured. Had some ongoing pain, minimal drainage. Referred to Dr. Strange, admitted to hospital. Wound cx 12/09 with enterococcus, staph epi, corynebacteria, anaerobes. Started on vanc here, developed lip/face swelling and mild dyspnea on 12/14. Transferred to icu, abx changed to linezolid/flagyl. Feeling better, face back to normal, no fever. Full ROS performed and neg except as noted above. - Medical History Past Medical History (Chronic Problems): Chronic Problems (Last Reviewed 12/13/18 @ 21:23 by Farhat Strange MD) Former smoker (Chronic) Grade I diastolic dysfunction (Chronic) Essential hypertension (Chronic) Type 2 diabetes mellitus (Chronic) Venous insufficiency of both lower extremities (Chronic) Open wound of right knee (Chronic) Traumatic,penetratiung with fat layer exposed. Bilateral lower extremity edema (Chronic) Diastolic CHF (Chronic) Iron deficiency anemia (Chronic) etiology unknown Ulcer of right lower extremity with fat layer exposed (Chronic) Ulcer of right foot with fat layer exposed (Chronic) Ulcer of left lower extremity with fat layer exposed (Chronic) PVD (peripheral vascular disease) (Chronic) Edema, lower extremity (Chronic) Presence of stent in coronary artery (Chronic ~08/29/12) PTCA/stent to CX; PTCA/Stent PTCA/stent to prox RCA 05/06; PTCA/LILY in mid to distal RCA 08/29/12 Atherosclerotic heart disease of [place] coronary artery without angina pectoris (Chronic) PTCA/stent to CX; PTCA/Stent PTCA/stent to prox RCA 05/06; PTCA/LILY in mid to distal RCA 08/29/12; CABG x2 ARREGUIN tp LAD and SVG to OM2 01/02/11 S/P CABG (coronary artery bypass graft) (Chronic ~01/02/11) CABG x2 ARREGUIN tp LAD and SVG to OM2 01/02/11 Paroxysmal atrial fibrillation (Chronic) Hyperlipidemia (Chronic) Allergies/Adverse Reactions: Allergies codeine Allergy (Unknown, Verified 12/11/18 13:28) Hives cefazolin Allergy (Verified 12/11/18 13:28) Rash ciprofloxacin [From Cipro] Allergy (Verified 12/11/18 13:28) Hives ciprofloxacin HCl [From Cipro] Allergy (Verified 12/11/18 13:28) Hives Latex, Natural Rubber Allergy (Verified 12/11/18 13:28) Rash Penicillins [PCN] Allergy (Verified 12/11/18 13:28) Hives vancomycin Allergy (Verified 12/14/18 18:01) Angioedema adhesive tape Adverse Reaction (Verified 12/11/18 13:28) Rash Home Medications: Ambulatory Orders Medication Instructions Recorded Amiodarone HCl 200 mg PO DAILY 04/09/18 Duloxetine HCl 60 mg PO DAILY 04/09/18 Magnesium Oxide [Mag-Ox 400] 400 mg PO BID 04/09/18 Metoprolol Tartrate [Lopressor 50 mg PO BID 04/09/18 (beta man)] Pantoprazole Sodium [Protonix] 40 mg PO DAILY 04/09/18 Rivaroxaban [Xarelto] 15 mg PO DAILY 04/09/18 Docusate Sodium 100 mg PO DAILY PRN PRN 05/22/18 Ergocalciferol (Vitamin D2) 50,000 unit PO DAILY 05/22/18 [Vitamin D2] Donepezil HCl 5 mg PO DAILY 08/19/18 Potassium Chloride [Klor-Con M20] 20 meq PO BID 08/19/18 Acetaminophen [Tylenol Tablet] 650 mg PO Q6H PRN PRN tab 08/23/18 Furosemide [Lasix] 60 mg PO DAILY #1 tab 08/23/18 ferrous sulfate 325 mg (65 mg 325 mg PO DAILY 09/25/18 iron) tablet,delayed release gabapentin 300 mg capsule 600 mg PO BID cap 09/25/18 budesonide 180 mcg/actuation 1 inh INHALATION BID inhaler 11/18/18 breath activated powder inhaler Hydrocortisone [Anusol Hc] 25 mg RECTAL BID PRN 12/11/18 Albuterol Sulfate [Albuterol 8.5 gm IH PRN PRN 12/13/18 Sulfate Hfa] Amlodipine [Norvasc] 2.5 mg PO DAILY 12/13/18 Phenazopyridine HCl [Pyridium] 200 mg PO TID 12/13/18 - Social History SMOKING STATUS:: Former smoker Vital Signs Temp Pulse Resp BP Pulse Ox 98 F 56 L 16 155/94 H 94 12/16/18 08:45 12/16/18 09:54 12/16/18 08:45 12/16/18 09:54 12/16/18 08:45 Oxygen Flow Rate (L/min) 3 Oxygen Delivery Method Room Air Weight: 91.5 kg Body Mass Index (BMI) 39.0 Finger Stick Blood Glucose 187 wbc 15, cr 1.2 - Other Studies Radiology: [] reviewed Other Studies: [] Route of nutrition/ use of supplements: [] Nutritional Intake: [] IV Site: [] [place] Catheter: [] - Physical Exam General: Alert, Oriented x3, Cooperative, No apparent distress HEENT: PERRLA, EOMI Neck: Supple, No Nodes Lungs: Clear to auscultation, Normal air movement Cardiovascular: Regular rate, Regular Rhythm, No murmurs Abdomen: Soft, Non Tender, Non-Distended Extremities: Edema Skin: Ulcer/ Wound - posterio scalp, reviewed photo IV Site: Peripheral, without redness Musculoskeletal: No Tenderness to Palpation of Joints or Extremities Neurological: Cranial nerves II-XII grossly intact - Assessment/Plan Antibiotics: [] Assessment/Plan: [] Active and Suspected Problems (Last Reviewed 12/13/18 @ 21:23 by Farhat Strange MD) Hypertensive urgency (Acute) Posterior scalp infected wound - 12/09 wound cx with enterococcus, MRSE, corynebacteria, and anaerobes. Agree with linezolid/flagyl. Plan on short course po at discharge. Monitoring for serotonin syndome with linezolid and SSRI. Had angioedema with vanc here 12/14. Will follow, thank you, d/w protective services case worker.
--- NOTE | 2018-12-16 13:38 | CASEMGMT ---
Reviewed PT/OT evaluations as there was discussion of patient needing a penitentiary. Patient walked 200' with wheeled walker and stand by assist. This is basically patient's baseline. OT is not recommending any further therapy. JAGDEEP met with patient, introduced self and role at [facility]. SW let patient know that her insurance is not going to approve her to go to a penitentiary as she is doing well with therapy. Patient was fine with home as she would rather go home than go to a penitentiary anyway. SW asked if she has anyone to help with daily dressing changes should she need them at d/c. She said she does not. She asked if she could go to the wound center for dressing changes. SW told her we can look into this. Mariaa [employer]
[2018-12-16] MEDS: Rivaroxaban 15 MG Tablet PO (17:07)
[2018-12-16] MEDS: Docusate Sodium 100 MG Capsule PO (22:14)
[2018-12-16] MEDS: Metoprolol Tartrate 50 MG Tablet PO (22:15)
[2018-12-17] VITALS (17 sets, daily range): BP systolic 131–165; BP diastolic 44–63; PULSE 52–67; RESP 16; TEMP 36.2–36.8; O2SAT 94–98
[2018-12-17] MEDS: hydrALAZINE 50 MG Tablet PO ×3 (05:39→21:45)
[2018-12-17] MEDS: metroNIDAZOLE 500 MG Tablet PO ×3 (05:40→21:45)
[2018-12-17] MEDS: Budesonide Respules 0.5 MG/2 ML AMPUL.NEB. INHALATION ×2 (06:47→19:44)
[2018-12-17] MEDS: Ferrous Sulfate 325 MG Tablet PO (08:59)
--- NOTE | 2018-12-17 10:12 | PN.ID_ITS ---
Patient Problems: Active and Suspected Problems (Last Reviewed 12/13/18 @ 21:23 by Farhat Strange MD) Hypertensive urgency (Acute) Subjective: Feeling better, no fever, no n/v/d. - Physical Exam Vitals/I&O's: Vital Signs Temp Pulse Resp BP Pulse Ox 98.1 F 52 L 16 135/58 H 95 12/17/18 05:35 12/17/18 07:35 12/17/18 06:47 12/17/18 05:39 12/17/18 06:47 Oxygen Flow Rate (L/min) 3 Oxygen Delivery Method Room Air Weight: 92.6 kg Body Mass Index (BMI) 39.0 Finger Stick Blood Glucose 187 Intake and Output for Last 24 Hours 12/15/18 12/16/18 12/17/18 23:59 23:59 23:59 Intake Total 2487.67 / 2487.67 1844.75 / 1844.75 0 / 0 Output Total 650 / 650 350 / 350 175 / 175 Balance 1837.67 / 1837.67 1494.75 / 1494.75 -175 / -175 General: Alert, Cooperative, No apparent distress Lungs: Clear to auscultation, Normal air movement Cardiovascular: Regular rate, Regular Rhythm Abdomen: Soft, Non Tender, Non-Distended Skin: Ulcer/ Wound - posterior scalp, no redness, no drainage Current Medications Acetaminophen (Tylenol) 650 mg PO Q6H PRN PRN PRN Reason: Pain Score 1-10/10 Last Admin: 12/14/18 20:48 Dose: 650 mg Documented by: Amiodarone HCl (Cordarone) 200 mg PO DAILY [facility] Last Admin: 12/16/18 09:52 Dose: 200 mg Documented by: Amlodipine Besylate (Norvasc) 5 mg PO DAILY [facility] Last Admin: 12/16/18 10:01 Dose: 5 mg Documented by: Budesonide (Pulmicort Aerosol) 0.5 mg INHALATION Q12H.RT [facility] Last Admin: 12/17/18 06:47 Dose: 0.5 mg Documented by: Docusate Sodium (Colace) 100 mg PO BID [facility] Last Admin: 12/16/18 22:14 Dose: 100 mg Documented by: Donepezil HCl (Aricept) 5 mg PO DAILY [facility] Last Admin: 12/16/18 09:51 Dose: 5 mg Documented by: Duloxetine HCl (Cymbalta) 60 mg PO DAILY [facility] Last Admin: 12/16/18 09:53 Dose: 60 mg Documented by: Ergocalciferol (Vitamin D) 50,000 unit PO QWEEK [facility] Last Admin: 12/16/18 09:59 Dose: 50,000 unit Documented by: Famotidine (Pepcid) 20 mg PO DAILY [facility] Last Admin: 12/16/18 09:58 Dose: 20 mg Documented by: [facility]ous S[facility] ([facility] S[facility]ate) [facility] Last Admin: 12/17/18 08:59 Dose: 325 mg Documented by: Furosemide (Lasix) 60 mg PO DAILY [facility] Last Admin: 12/16/18 09:53 Dose: 60 mg Documented by: Gabapentin (Neurontin) 600 mg PO BID [facility] Last Admin: 12/16/18 22:15 Dose: 600 mg Documented by: Hydralazine HCl (Apresoline) 50 mg PO TID [facility] Last Admin: 12/17/18 05:39 Dose: 50 mg Documented by: Hydralazine HCl (Apresoline Iv) 10 mg IV Q4H PRN PRN PRN Reason: SBP >180 mmhg Hydrocortisone Acetate (Anusol Hc) 25 mg RECTAL BID PRN PRN Reason: Hemorrhoids Sodium Chloride () 250 mls @ 15 mls/hr IV .[id number] PRN PRN Reason: Saline Flush Last Infusion: 12/16/18 23:45 Dose: 15 mls/hr Documented by: Linezolid (Zyvox) 600 mg PO Q12 [facility] Magnesium Oxide (Mag-Ox 400) 400 mg PO BID [facility] Last Admin: 12/16/18 22:15 Dose: 400 mg Documented by: Metoprolol Tartrate (Lopressor (Beta Tommy)) 50 mg PO BID [facility] Last Admin: 12/16/18 22:15 Dose: 50 mg Documented by: Metronidazole (Flagyl) 500 mg PO TID [facility] Last Admin: 12/17/18 05:40 Dose: 500 mg Documented by: Nutritional Formula (Ej - [place] Flavor) [facility] Last Admin: 12/17/18 08:44 Dose: Not Given Documented by: Nystatin (Mycostatin Powder) 1 applic TOPICAL BID [facility]; Protocol Last Admin: 12/16/18 22:15 Dose: 1 appful Documented by: Ondansetron HCl (Zofran) 4 mg IV Q6H PRN PRN PRN Reason: NAUSEA Oxycodone HCl (Oxyir) 10 mg PO Q4H PRN PRN PRN Reason: Pain Score 6-10/10 Oxycodone HCl (Oxyir) 5 mg PO Q4H PRN PRN PRN Reason: Pain Score 4-5/10 Last Admin: 12/15/18 10:58 Dose: 5 mg Documented by: Pantoprazole Sodium (Protonix) 40 mg PO DAILY [facility] Last Admin: 12/16/18 09:58 Dose: 40 mg Documented by: Phenazopyridine HCl (Azo Standard) 190 mg PO TID PRN PRN PRN Reason: URINARY BURNING Potassium Chloride (K-Dur) 20 meq PO BIDCM [facility] Last Admin: 12/17/18 08:45 Dose: 20 meq Documented by: Promethazine HCl (Phenergan Tablet) 25 mg PO Q4H PRN PRN PRN Reason: NAUSEA/VOMITING Rivaroxaban (Xarelto) 15 mg PO DAILY@1700 [facility] Last Admin: 12/16/18 17:07 Dose: 15 mg Documented by: Sodium Chloride () 10 - 40 ml IV UD PRN PRN Reason: SALINE FLUSH Last Admin: 12/14/18 13:09 Dose: 10 ml Documented by: Medical Necessity - Tobacco Use Smoking Status: Former smoker Tobacco Use: Non-smoker Route of nutrition/ use of supplements: [] Nutritional Intake: [] IV Site: [] [place] Catheter: [] - Assessment/Plan Antibiotics: [] Assessment/Plan: [] Active and Suspected Problems (Last Reviewed 12/13/18 @ 21:23 by Farhat Strange MD) Hypertensive urgency (Acute) Posterior scalp infected wound - 12/09 wound cx with enterococcus, MRSE, corynebacteria, and anaerobes. Agree with linezolid/flagyl. Plan on short course po at discharge, stop date 12/21/18. Monitoring for serotonin syndome with linezolid and SSRI. Had angioedema with vanc here 12/14. Will follow
[2018-12-17] MEDS: Donepezil HCl 5 MG Tablet PO (10:19)
[2018-12-17] MEDS: DULoxetine Hcl 60 MG Capsule PO (10:20)
[2018-12-17] MEDS: Amiodarone 200 MG Tablet PO (10:20)
[2018-12-17] MEDS: Furosemide 20 MG Tablet 60 MG PO (10:20)
[2018-12-17] MEDS: Magnesium Oxide 400 MG Tablet PO ×2 (10:21→21:46)
[2018-12-17] MEDS: Famotidine 20 MG Tablet PO (10:22)
[2018-12-17] MEDS: Pantoprazole Sodium 40 MG Tablet PO (10:22)
[2018-12-17] MEDS: Gabapentin 600 MG Tablet PO ×2 (10:22→21:46)
[2018-12-17] MEDS: amLODIPine 5 MG Tablet PO (10:23)
[2018-12-17] MEDS: Nystatin Powder 15gm Bottle 1 APPLIC TOPICAL ×2 (10:23→21:46)
[2018-12-17] MEDS: Linezolid 600 MG Tablet PO ×2 (10:25→21:47)
--- NOTE | 2018-12-17 11:15 | CASEMGMT ---
RN CM Assessment Presentation: Infected scalp wound, + cultures. HTN urgency Intro role of CM and purpose of RN CM assessment to patient in room. Pt is sitting in chair, awake, alert and able to participate in assessment. Demographics, PCP and Pharmacy verified. Wound Center appointment, Dec 26 @ 1100. Pt states she has been PCP: Dr. Franco Specialists: Dr. Brown, ID; Dr. Strange Preferred Pharmacy: [facility]. Plan is for Linezolid on dc- Per [employer] website, medication is Tier 2, requires Prior Authorization and has Quantity Limitations. Insurance: [employer] Adv. Prescription Benefit: yes LNOK: Son Farhat Ya Living Arrangements: Pt lives with son, dtr in law and sister in one story home with ramp. Independent prior to admission, now needing SBA for dressing, toileting. Ambulated 200', was fatigued. No OT therapy recommended on dc. PT is recommended. Pt also states she is normally independent, but was fatigues and weak with ambulation. She is agreeable to have Home Care PT see her. Transportation: Family drives DME: Rollator, raised toilet seat, side rails, shower chair, grab bars, Cpap, blood glucose monitor with supplies. HHC: Referral to [facility]. Per Lisa, they can accept pt. (Pt had [facility] previously- did not come up on website for Insurance. RN CM called to [facility] send referral and we can check if we can take it. Reviewed list of [facility] with pt- [facility] chosen). Patient DC goals: Home DC PLAN: Home with [facility]. Eduarda GOMEZ RN ACM
--- NOTE | 2018-12-17 11:17 | CASEMGMT ---
Pt states has been following up at the [facility] wound center and per Nithin wound RN, pt will need dressing changes every other day. Call to Wound center to see how often pt goes at this time and per Violeta, pt's last appt was 12/05/18 and they had [facility]. Violeta updated on scalp wound and states that pt follows with [facility] who takes appt's on and then cannot get her in until 12/26/18 at 1100. This appt was placed in pt f/u appt on worklist. Pt will have to be set up with [facility] for more frequent dressing changes. SStaten INÉS CM
--- NOTE | 2018-12-17 15:30 | PN_ITS ---
Patient Problems: Active and Suspected Problems (Last Reviewed 12/13/18 @ 21:23 by Farhat Strange MD) Hypertensive urgency (Acute) Subjective: Doing well, no issues overnight Vitals/I&O's: Vital Signs Temp Pulse Resp BP Pulse Ox 97.1 F L 67 16 137/55 H 98 12/17/18 11:00 12/17/18 15:00 12/17/18 11:00 12/17/18 14:26 12/17/18 11:00 Oxygen Flow Rate (L/min) 3 Oxygen Delivery Method Room Air Weight: 204 lb 2.369 oz Body Mass Index (BMI) 39.0 Finger Stick Blood Glucose 187 Intake and Output for Last 24 Hours 12/15/18 12/16/18 12/17/18 23:59 23:59 23:59 Intake Total 2487.67 / 2487.67 1844.75 / 1844.75 532 / 532 Output Total 650 / 650 350 / 350 177 / 177 Balance 1837.67 / 1837.67 1494.75 / 1494.75 355 / 355 General: Alert, Oriented x3, Cooperative, No apparent distress HEENT: Atraumatic, PERRLA, EOMI, Normocephalic Oral: Moist Mucosa Neck: Supple, No JVD Lungs: Clear to auscultation, Normal air movement, No rhonchi, No wheeze, No rales, Diminished Cardiovascular: Regular rate, Regular Rhythm, Normal S1, Normal S2, No murmurs Abdomen: Soft, Non Tender, Non-Distended, No Hepato-splenomegaly Extremities: Capillary Refill Less than 3 Seconds, Edema - 1+ nonpitting edema bilaterally Skin: No rashes, No breakdown, Incision - Dressing over her scalp is intact Neurological: Neuro grossly intact, Sensory exam intact to light touch and pain Psych/Mental Status: Normal Affect, Appropriate Current Medications Acetaminophen (Tylenol) 650 mg PO Q6H PRN PRN PRN Reason: Pain Score 1-11/14 Last Admin: 12/14/18 20:48 Dose: 650 mg Documented by: Amiodarone HCl (Cordarone) 200 mg PO DAILY [facility] Last Admin: 12/17/18 10:20 Dose: 200 mg Documented by: Amlodipine Besylate (Norvasc) 5 mg PO DAILY [facility] Last Admin: 12/17/18 10:23 Dose: 5 mg Documented by: Budesonide (Pulmicort Aerosol) 0.5 mg INHALATION Q12H.RT [facility] Last Admin: 12/17/18 06:47 Dose: 0.5 mg Documented by: Docusate Sodium (Colace) 100 mg PO BID [facility] Last Admin: 12/17/18 10:19 Dose: Not Given Documented by: Donepezil HCl (Aricept) 5 mg PO DAILY [facility] Last Admin: 12/17/18 10:19 Dose: 5 mg Documented by: Duloxetine HCl (Cymbalta) 60 mg PO DAILY [facility] Last Admin: 12/17/18 10:20 Dose: 60 mg Documented by: Ergocalciferol (Vitamin D) 50,000 unit PO QWEEK [facility] Last Admin: 12/16/18 09:59 Dose: 50,000 unit Documented by: Famotidine (Pepcid) 20 mg PO DAILY [facility] Last Admin: 12/17/18 10:22 Dose: 20 mg Documented by: Ferrous Sulfate (Ferrous Sulfate) 325 mg PO DAILYCM [facility] Last Admin: 12/17/18 08:59 Dose: 325 mg Documented by: Furosemide (Lasix) 60 mg PO DAILY [facility] Last Admin: 12/17/18 10:20 Dose: 60 mg Documented by: Gabapentin (Neurontin) 600 mg PO BID [facility] Last Admin: 12/17/18 10:22 Dose: 600 mg Documented by: Hydralazine HCl (Apresoline) 50 mg PO TID [facility] Last Admin: 12/17/18 14:15 Dose: 50 mg Documented by: Hydralazine HCl (Apresoline Iv) 10 mg IV Q4H PRN PRN PRN Reason: SBP >180 mmhg Hydrocortisone Acetate (Anusol Hc) 25 mg RECTAL BID PRN PRN Reason: Hemorrhoids Sodium Chloride () 250 mls @ 15 mls/hr IV .[id number] PRN PRN Reason: Saline Flush Last Infusion: 12/17/18 11:13 Dose: Infused Documented by: Linezolid (Zyvox) 600 mg PO Q12 [facility] Last Admin: 12/17/18 10:25 Dose: 600 mg Documented by: Magnesium Oxide (Mag-Ox 400) 400 mg PO BID [facility] Last Admin: 12/17/18 10:21 Dose: 400 mg Documented by: Metoprolol Tartrate (Lopressor (Beta Tommy)) 50 mg PO BID [facility] Last Admin: 12/17/18 10:21 Dose: Not Given Documented by: Metronidazole (Flagyl) 500 mg PO TID [facility] Last Admin: 12/17/18 14:16 Dose: 500 mg Documented by: Nutritional Formula (Ej - [place] Flavor) [facility] Last Admin: 12/17/18 08:44 Dose: Not Given Documented by: Nystatin (Mycostatin Powder) 1 applic TOPICAL BID [facility]; Protocol Last Admin: 12/17/18 10:23 Dose: 1 appful Documented by: Ondansetron HCl (Zofran) 4 mg IV Q6H PRN PRN PRN Reason: NAUSEA Oxycodone HCl (Oxyir) 10 mg PO Q4H PRN PRN PRN Reason: Pain Score 6-10/10 Oxycodone HCl (Oxyir) 5 mg PO Q4H PRN PRN PRN Reason: Pain Score 4-5/10 Last Admin: 12/15/18 10:58 Dose: 5 mg Documented by: Pantoprazole Sodium (Protonix) 40 mg PO DAILY [facility] Last Admin: 12/17/18 10:22 Dose: 40 mg Documented by: Phenazopyridine HCl (Azo Standard) 190 mg PO TID PRN PRN PRN Reason: URINARY BURNING Potassium Chloride (K-Dur) [facility] Last Admin: 12/17/18 08:45 Dose: 20 meq Documented by: Promethazine HCl (Phenergan Tablet) 25 mg PO Q4H PRN PRN PRN Reason: NAUSEA/VOMITING Rivaroxaban (Xarelto) 15 mg PO DAILY@1700 [facility] Last Admin: 12/16/18 17:07 Dose: 15 mg Documented by: Sodium Chloride () 10 - 40 ml IV UD PRN PRN Reason: SALINE FLUSH Last Admin: 12/14/18 13:09 Dose: 10 ml Documented by: STROKE Vital Signs/Narrative: Vital Signs Pulse BP BP 12/17/18 15:00 67 12/17/18 14:26 62 137/55 H 12/17/18 14:15 62 137/55 H Medical Necessity - Tobacco Use Smoking Status: Former smoker Tobacco Use: Non-smoker Assessment/Plan All Active Problems (Last Reviewed 12/13/18 @ 21:23 by Farhat Strange MD) Hypertensive urgency (Acute) Open wound of scalp with complication (Acute) Hematoma of scalp (Acute) Lymphedema of both lower extremities (Acute) Acute diastolic (congestive) heart failure (Acute) Acute sepsis (Acute) Allergic dermatitis (Acute) Angioedema (Acute) Adverse drug effect (Acute) Wound of left lower extremity (Acute) Cellulitis (Acute) Metabolic encephalopathy (Resolved) Ulcer of left lower extremity with fat layer exposed (Resolved) Cognitive impairment (Resolved) Open wound of left elbow (Resolved) Open wound of right elbow (Resolved) UTI (urinary tract infection) (Resolved) Wound of right foot (Resolved) 1. Allergic reaction and angioedema secondary to vancomycin/traumatic ulcer with hematoma with MRSA and MRSE -Resolved -ID consulted -On Zyvox and Flagyl, can continue a short course as an outpatient 2. Hypertensive urgency/CAD status post CABG and stent/paroxysmal A. fib/peripheral vascular disease/mild chronic diastolic heart failure/HLD -Blood pressure has stabilized -Last echo in April 2018 with an EF of 65% and stage I diastolic dysfunction -Continue with amiodarone, Norvasc, metoprolol, Lasix -She still on Xarelto, and she is medically stable for any further procedures that she would need therefore we will leave it up to the primary service to carina knight when they would like to hold her Xarelto based on their plans for the OR 3. GERD -Stable -Continue with PPI 4. Anxiety/depression/dementia -Stable -Continue with donepezil, Cymbalta, will cut the dose of Cymbalta in half to avoid serotonin syndrome with Zyvox -When she completes the Zyvox she can resume her full dose Cymbalta DVT: Xarelto
[2018-12-17] MEDS: Rivaroxaban 15 MG Tablet PO (17:06)
--- NOTE | 2018-12-17 21:11 | PN.SURG_ITS ---
Subjective: Patient is resting comfortably. She is more steady on her feet with ambulation. - Physical Exam Vitals/I&O's: Vital Signs Temp Pulse Resp BP Pulse Ox 98.0 F 63 16 165/60 H 94 12/17/18 21:40 12/17/18 21:45 12/17/18 21:40 12/17/18 21:45 12/17/18 21:40 Oxygen Flow Rate (L/min) 3 Oxygen Delivery Method Room Air Weight: 204 lb 2.369 oz Body Mass Index (BMI) 39.0 Finger Stick Blood Glucose 187 Intake and Output for Last 24 Hours 12/16/18 12/17/18 12/18/18 23:59 23:59 23:59 Intake Total 1844.75 / 1844.75 772 / 772 Output Total 350 / 350 177 / 177 Balance 1494.75 / 1494.75 595 / 595 General: Alert, Oriented x3 HEENT: PERRLA, EOMI Oral: Moist Mucosa Neck: Supple Lungs: Clear to auscultation Cardiovascular: Regular rate, Regular Rhythm Abdomen: Soft, Non-Distended Extremities: Edema - mild edema in lower extremities. Skin: Ulcer/ Wound - top of scalp wound with occipital extension stable. Some granulation tissue seen. No exposed bone. Redressed with Silver dressing. Measures 2 x 1.4 cm. Neurological: Cranial nerves II-XII grossly intact Psych/Mental Status: Normal Affect, Appropriate Current Medications Acetaminophen (Tylenol) 650 mg PO Q6H PRN PRN PRN Reason: Pain Score 1-10/10 Last Admin: 12/14/18 20:48 Dose: 650 mg Documented by: Amiodarone HCl (Cordarone) 200 mg PO DAILY [facility] Last Admin: 12/17/18 10:20 Dose: 200 mg Documented by: Amlodipine Besylate (Norvasc) 5 mg PO DAILY [facility] Last Admin: 12/17/18 10:23 Dose: 5 mg Documented by: Budesonide (Pulmicort Aerosol) 0.5 mg INHALATION Q12H.RT [facility] Last Admin: 12/17/18 19:44 Dose: 0.5 mg Documented by: Docusate Sodium (Colace) 100 mg PO BID [facility] Last Admin: 12/17/18 21:45 Dose: 100 mg Documented by: Donepezil HCl (Aricept) 5 mg PO DAILY [facility] Last Admin: 12/17/18 10:19 Dose: 5 mg Documented by: Duloxetine HCl (Cymbalta) 30 mg PO DAILY [facility] Ergocalciferol (Vitamin D) 50,000 unit PO QWEEK [facility] Last Admin: 12/16/18 09:59 Dose: 50,000 unit Documented by: Famotidine (Pepcid) 20 mg PO DAILY [facility] Last Admin: 12/17/18 10:22 Dose: 20 mg Documented by: Ferrous Sulfate (F[facility]ous Sulfate) [facility] Last Admin: 12/17/18 08:59 Dose: 325 mg Documented by: Furosemide (Lasix) 60 mg PO DAILY [facility] Last Admin: 12/17/18 10:20 Dose: 60 mg Documented by: Gabapentin (Neurontin) 600 mg PO BID [facility] Last Admin: 12/17/18 21:46 Dose: 600 mg Documented by: Hydralazine HCl (Apresoline) 50 mg PO TID [facility] Last Admin: 12/17/18 21:45 Dose: 50 mg Documented by: Hydralazine HCl (Apresoline Iv) 10 mg IV Q4H PRN PRN PRN Reason: SBP >180 mmhg Hydrocortisone Acetate (Anusol Hc) 25 mg RECTAL BID PRN PRN Reason: Hemorrhoids Sodium Chloride () 250 mls @ 15 mls/hr IV .[id number] PRN PRN Reason: Saline Flush Last Infusion: 12/17/18 11:13 Dose: Infused Documented by: Linezolid (Zyvox) 600 mg PO Q12 [facility] Last Admin: 12/17/18 21:47 Dose: 600 mg Documented by: Magnesium Oxide (Mag-Ox 400) 400 mg PO BID [facility] Last Admin: 12/17/18 21:46 Dose: 400 mg Documented by: Metoprolol Tartrate (Lopressor (Beta Tommy)) 50 mg PO BID [facility] Last Admin: 12/17/18 21:45 Dose: 50 mg Documented by: Metronidazole (Flagyl) 500 mg PO TID [facility] Last Admin: 12/17/18 21:45 Dose: 500 mg Documented by: Nutritional Formula (Ej - [place] Flavor) [facility] Last Admin: 12/17/18 17:05 Dose: Not Given Documented by: Nystatin (Mycostatin Powder) 1 applic TOPICAL BID [facility]; Protocol Last Admin: 12/17/18 21:46 Dose: 1 appful Documented by: Ondansetron HCl (Zofran) 4 mg IV Q6H PRN PRN PRN Reason: NAUSEA Oxycodone HCl (Oxyir) 10 mg PO Q4H PRN PRN PRN Reason: Pain Score 6-10/10 Oxycodone HCl (Oxyir) 5 mg PO Q4H PRN PRN PRN Reason: Pain Score 4-5/10 Last Admin: 12/15/18 10:58 Dose: 5 mg Documented by: Pantoprazole Sodium (Protonix) 40 mg PO DAILY [facility] Last Admin: 12/17/18 10:22 Dose: 40 mg Documented by: Phenazopyridine HCl (Azo Standard) 190 mg PO TID PRN PRN PRN Reason: URINARY BURNING Potassium Chloride (K-Dur) 20 meq PO BIDCM [facility] Last Admin: 12/17/18 17:06 Dose: 20 meq Documented by: Promethazine HCl (Phenergan Tablet) 25 mg PO Q4H PRN PRN PRN Reason: NAUSEA/VOMITING Rivaroxaban (Xarelto) 15 mg PO DAILY@1700 [facility] Last Admin: 12/17/18 17:06 Dose: 15 mg Documented by: Sodium Chloride () 10 - 40 ml IV UD PRN PRN Reason: SALINE FLUSH Last Admin: 12/14/18 13:09 Dose: 10 ml Documented by: Medical Necessity - Tobacco Use Smoking Status: Former smoker Tobacco Use: Non-smoker Assessment/Plan All Active Problems (Last Reviewed 12/13/18 @ 21:23 by Farhat Strange MD) Hypertensive urgency (Acute) Open wound of scalp with complication (Acute) Hematoma of scalp (Acute) Lymphedema of both lower extremities (Acute) Acute diastolic (congestive) heart failure (Acute) Acute sepsis (Acute) Allergic dermatitis (Acute) Angioedema (Acute) Adverse drug effect (Acute) Wound of left lower extremity (Acute) Cellulitis (Acute) Metabolic encephalopathy (Resolved) Ulcer of left lower extremity with fat layer exposed (Resolved) Cognitive impairment (Resolved) Open wound of left elbow (Resolved) Open wound of right elbow (Resolved) UTI (urinary tract infection) (Resolved) Wound of right foot (Resolved) 1. Nonhealing traumatic hematoma wound top of scalp at vertex with occipital extension. 2. Hematoma top of scalp at vertex with occipital extension. 3. Accidental fall. 4. Acute head injury with scalp hematoma without loss of consciousness. 5. Diabetes mellitus. 6. Former smoker. 7. Hypertensive urgency, stable. 8. Facial swelling and edema from allergic reaction to Vancomycin, resolved. The scalp wound is stable. She tolerated Silver dressing change today. Some granulation tissue seen. No bleeding seen. Her wound cultures from 12/09/18 showed Enterococcus faecalis, MRSE, Cor ynebacterium amycolatum/xer, and Anaerobic cocci. Continue Linezolid and Flagyl. Was seen by Infectious Diseases. Can be discharged on po antibiotics. Her hypertension urgency has stabilized. She is on Amlodipine, Metoprolol, and Hydralazine. With the Silver dressing wound care and antibiotics, there is improvement in the wound. So will hold off on operative debridement at this time. Would not consider wound closure until the infection has been treated with antibiotics. With her history of being on Xarelto, will lean more toward a skin graft for wound closure rather than a complex flap that would require undermining which would increase the risk of wound healing problems after surgery because of potential bleeding issues from the Xarelto. It was discussed with the patient that she is at risk for developing osteomyelitis. If present, then ad terminal makeup operator antibiotics would be necessary along with partial ostectomy for osteomyelitis. At that point, complex wound closure may require evaluation and treatment at a tertiary center as complex flaps using microvascular free tissue transfer may be necessary. She is able to ambulate with a walker. She is not a candidate for an ECF. Working on Home Health to assist with the Silver dressing changes before discharge. Code Visit Inpatient E&M: 55771 Subs Hosp L1 - S01.00xA, s00.03xA, W19.xxxA, S09.90xA, I16.0, T50.905A, E11.9, Z87.891
[2018-12-17] MEDS: Metoprolol Tartrate 50 MG Tablet PO (21:45)
[2018-12-17] MEDS: Docusate Sodium 100 MG Capsule PO (21:45)
[2018-12-18] VITALS (20 sets, daily range): BP systolic 131–168; BP diastolic 50–84; PULSE 52–75; RESP 14–21; TEMP 36.6–36.9; O2SAT 94–98
[2018-12-18] MEDS: hydrALAZINE 50 MG Tablet PO ×3 (05:48→21:10)
[2018-12-18] MEDS: metroNIDAZOLE 500 MG Tablet PO ×3 (05:48→21:10)
[2018-12-18] MEDS: Budesonide Respules 0.5 MG/2 ML AMPUL.NEB. INHALATION ×2 (07:14→20:47)
[2018-12-18] MEDS: Ferrous Sulfate 325 MG Tablet PO (08:47)
[2018-12-18] MEDS: Donepezil HCl 5 MG Tablet PO (08:48)
[2018-12-18] MEDS: Docusate Sodium 100 MG Capsule PO (08:48)
[2018-12-18] MEDS: Furosemide 20 MG Tablet 60 MG PO (08:49)
[2018-12-18] MEDS: Amiodarone 200 MG Tablet PO (08:49)
[2018-12-18] MEDS: DULoxetine Hcl 30 MG Capsule PO (08:49)
[2018-12-18] MEDS: Magnesium Oxide 400 MG Tablet PO ×2 (08:50→21:09)
[2018-12-18] MEDS: Gabapentin 600 MG Tablet PO ×2 (08:51→21:09)
[2018-12-18] MEDS: amLODIPine 5 MG Tablet PO (08:51)
[2018-12-18] MEDS: Nystatin Powder 15gm Bottle 1 APPLIC TOPICAL ×2 (08:51→21:10)
[2018-12-18] MEDS: Famotidine 20 MG Tablet PO (08:52)
[2018-12-18] MEDS: Pantoprazole Sodium 40 MG Tablet PO (08:52)
[2018-12-18] MEDS: Linezolid 600 MG Tablet PO ×2 (08:52→21:10)
--- NOTE | 2018-12-18 08:58 | PCM.PN.HOSP ---
Patient Problems: Active and Suspected Problems (Last Reviewed 12/13/18 @ 21:23 by Farhat Strange MD) Hypertensive urgency (Acute) Subjective: Feeling much better and ready to go today. Vitals/I&O's: Vital Signs Temp Pulse Resp BP Pulse Ox 97.8 F 56 L 14 138/65 H 94 12/18/18 08:07 12/18/18 08:13 12/18/18 08:13 12/18/18 08:07 12/18/18 08:44 Oxygen Flow Rate (L/min) 3 Oxygen Delivery Method Room Air Weight: 205 lb 0.478 oz Body Mass Index (BMI) 39.0 Finger Stick Blood Glucose 187 Intake and Output for Last 24 Hours 12/16/18 12/17/18 12/18/18 23:59 23:59 23:59 Intake Total 1844.75 / 1844.75 892 / 892 200 / 200 Output Total 350 / 350 177 / 177 Balance 1494.75 / 1494.75 715 / 715 200 / 200 General: Alert, Oriented x3, Cooperative, No apparent distress HEENT: Atraumatic, PERRLA, EOMI, Normocephalic Oral: Moist Mucosa Neck: Supple, No JVD Lungs: Clear to auscultation, Normal air movement, No rhonchi, No wheeze, No rales, Diminished Cardiovascular: Regular rate, Regular Rhythm, Normal S1, Normal S2, No murmurs Abdomen: Soft, Non Tender, Non-Distended, No Hepato-splenomegaly Extremities: Capillary Refill Less than 3 Seconds, Edema - 1+ nonpitting edema bilaterally Skin: No rashes, No breakdown, Incision - Dressing over her scalp is intact Neurological: Neuro grossly intact, Sensory exam intact to light touch and pain Psych/Mental Status: Normal Affect, Appropriate Current Medications Acetaminophen (Tylenol) 650 mg PO Q6H PRN PRN PRN Reason: Pain Score 1-10/10 Last Admin: 12/14/18 20:48 Dose: 650 mg Documented by: Amiodarone HCl (Cordarone) 200 mg PO DAILY [facility] Last Admin: 12/18/18 08:49 Dose: 200 mg Documented by: Amlodipine Besylate (Norvasc) 5 mg PO DAILY [facility] Last Admin: 12/18/18 08:51 Dose: 5 mg Documented by: Budesonide (Pulmicort Aerosol) 0.5 mg INHALATION Q12H.RT [facility] Last Admin: 12/18/18 07:14 Dose: 0.5 mg Documented by: Docusate Sodium (Colace) 100 mg PO BID [facility] Last Admin: 12/18/18 08:48 Dose: 100 mg Documented by: Donepezil HCl (Aricept) 5 mg PO DAILY [facility] Last Admin: 12/18/18 08:48 Dose: 5 mg Documented by: Duloxetine HCl (Cymbalta) 30 mg PO DAILY [facility] Last Admin: 12/18/18 08:49 Dose: 30 mg Documented by: Ergocalciferol (Vitamin D) 50,000 unit PO QWEEK [facility] Last Admin: 12/16/18 09:59 Dose: 50,000 unit Documented by: Famotidine (Pepcid) 20 mg PO DAILY [facility] Last Admin: 12/18/18 08:52 Dose: 20 mg Documented by: Ferrous Sulfate (Ferrous Sulfate) 325 mg PO DAILYCM [facility] Last Admin: 12/18/18 08:47 Dose: 325 mg Documented by: Furosemide (Lasix) 60 mg PO DAILY [facility] Last Admin: 12/18/18 08:49 Dose: 60 mg Documented by: Gabapentin (Neurontin) 600 mg PO BID [facility] Last Admin: 12/18/18 08:51 Dose: 600 mg Documented by: Hydralazine HCl (Apresoline) 50 mg PO TID [facility] Last Admin: 12/18/18 05:48 Dose: 50 mg Documented by: Hydralazine HCl (Apresoline Iv) 10 mg IV Q4H PRN PRN PRN Reason: SBP >180 mmhg Hydrocortisone Acetate (Anusol Hc) 25 mg RECTAL BID PRN PRN Reason: Hemorrhoids Sodium Chloride () 250 mls @ 15 mls/hr IV .[id number] PRN PRN Reason: Saline Flush Last Infusion: 12/17/18 11:13 Dose: Infused Documented by: Linezolid (Zyvox) 600 mg PO Q12 [facility] Last Admin: 12/18/18 08:52 Dose: 600 mg Documented by: Magnesium Oxide (Mag-Ox 400) 400 mg PO BID [facility] Last Admin: 12/18/18 08:50 Dose: 400 mg Documented by: Metoprolol Tartrate (Lopressor (Beta Tommy)) 50 mg PO BID [facility] Last Admin: 12/18/18 08:56 Dose: Not Given Documented by: Metronidazole (Flagyl) 500 mg PO TID [facility] Last Admin: 12/18/18 05:48 Dose: 500 mg Documented by: Nutritional Formula (Ej - [place] Flavor) [facility] Last Admin: 12/18/18 08:47 Dose: Not Given Documented by: Nystatin (Mycostatin Powder) 1 applic TOPICAL BID [facility]; Protocol Last Admin: 12/18/18 08:51 Dose: 1 appful Documented by: Ondansetron HCl (Zofran) 4 mg IV Q6H PRN PRN PRN Reason: NAUSEA Oxycodone HCl (Oxyir) 10 mg PO Q4H PRN PRN PRN Reason: Pain Score 6-10/10 Oxycodone HCl (Oxyir) 5 mg PO Q4H PRN PRN PRN Reason: Pain Score 4-5/10 Last Admin: 12/15/18 10:58 Dose: 5 mg Documented by: Pantoprazole Sodium (Protonix) 40 mg PO DAILY [facility] Last Admin: 12/18/18 08:52 Dose: 40 mg Documented by: Phenazopyridine HCl (Azo Standard) 190 mg PO TID PRN PRN PRN Reason: URINARY BURNING Potassium Chloride (K-Dur) [facility] Last Admin: 12/18/18 08:48 Dose: 20 meq Documented by: Promethazine HCl (Phenergan Tablet) 25 mg PO Q4H PRN PRN PRN Reason: NAUSEA/VOMITING Rivaroxaban (Xarelto) 15 mg PO DAILY@1700 [facility] Last Admin: 12/17/18 17:06 Dose: 15 mg Documented by: Sodium Chloride () 10 - 40 ml IV UD PRN PRN Reason: SALINE FLUSH Last Admin: 12/14/18 13:09 Dose: 10 ml Documented by: STROKE Vital Signs/Narrative: Vital Signs Temp Pulse Resp BP Pulse Ox 12/18/18 08:44 94 12/18/18 08:13 56 L 14 95 12/18/18 08:07 97.8 F 58 L 14 138/65 H 97 12/18/18 07:56 58 L 12/18/18 07:05 67 21 H 12/18/18 05:48 58 L 168/54 H 12/18/18 05:45 98.0 F 58 L 16 168/54 H 94 Medical Necessity - Tobacco Use Smoking Status: Former smoker Tobacco Use: Non-smoker Assessment/Plan All Active Problems (Last Reviewed 12/13/18 @ 21:23 by Farhat Strange MD) Hypertensive urgency (Acute) Open wound of scalp with complication (Acute) Hematoma of scalp (Acute) Lymphedema of both lower extremities (Acute) Acute diastolic (congestive) heart failure (Acute) Acute sepsis (Acute) Allergic dermatitis (Acute) Angioedema (Acute) Adverse drug effect (Acute) Wound of left lower extremity (Acute) Cellulitis (Acute) Metabolic encephalopathy (Resolved) Ulcer of left lower extremity with fat layer exposed (Resolved) Cognitive impairment (Resolved) Open wound of left elbow (Resolved) Open wound of right elbow (Resolved) UTI (urinary tract infection) (Resolved) Wound of right foot (Resolved) 1. Allergic reaction and angioedema secondary to vancomycin/traumatic ulcer with hematoma with MRSA and MRSE -Angioedema resolved -ID consulted -On Zyvox and Flagyl, can continue a short course as an outpatient 2. Hypertensive urgency/CAD status post CABG and stent/paroxysmal A. fib/peripheral vascular disease/mild chronic diastolic heart failure/HLD -Blood pressure has stabilized -Last echo in April 2018 with an EF of 65% and stage I diastolic dysfunction -Continue with amiodarone, Norvasc, metoprolol, Lasix -We will check a BMP today -She still on Xarelto, and she is medically stable for any further procedures that she would need therefore we will leave it up to the primary service to decide when they would like to hold her Xarelto based on their plans for the OR 3. GERD -Stable -Continue with PPI 4. Anxiety/depression/dementia -Stable -Continue with donepezil, Cymbalta, will cut the dose of Cymbalta in half to avoid serotonin syndrome with Zyvox -When she completes the Zyvox she can resume her full dose Cymbalta DVT: Xarelto Code Visit Inpatient E&M: 00421 Subs Hosp L2
[2018-12-18 10:06] LABS: Anion Gap 5 (5-15); BUN 23 mg/dL (7-18); BUN/Creat Ratio 17.8 RATIO (10-20); Calcium,Total 8.9 mg/dL (8.5-10.1); Chloride 105 mmol/L (98-107); Creatinine, Serum 1.29 mg/dL (0.55-1.02); EST Glomerular Filtration Rate 43 mL/min (>60); Est Glom Filt Rate - Afr Amer 52 mL/min (>60); Estimated Creatinine Clearance 27.48 ml/min; Glucose 163 mg/dL (74-106); Potassium 3.4 mmol/L (3.5-5.1); Sodium Level 143 mmol/L (136-145)
[2018-12-18 10:19] LABS: Absolute Lymphocyte Count 1.73 X10^3/uL (0.83-4.51); Absolute Neutrophil Count 9.9 X10^3/uL (2.0-7.7); Basophil# 0.03 X10^3/uL; Basophil% 0.2 % (0-1); Eosinophil# 0.22 X10^3/uL; Eosinophils% 1.7 % (0-5); Hematocrit 42.2 % (37-47); Hemoglobin 12.3 g/dL (12.0-15.0); Lymphocyte # 1.73 X10^3/ul (4.0); Lymphocyte % 13.6 % (19-41); Mean Corp Hgb Conc 29.1 g/dL (32-36); Mean Corpuscular Hgb 28.5 pg (27.0-32.0); Mean Corpuscular Volume 97.7 fL (81-99); Mean Platelet Vol. 10.3 fl (6.2-12.0); Monocyte# 0.81 X10^3/uL; Monocyte% 6.4 % (0-10); NRBC Flagged by Analyzer 0 % (0-5); Neutrophil # 9.87 X10^3/uL (2.7-7.7); Neutrophil % 77.8 % (47-70); Platelet Count 286 K/mm3 (150-450); RBC Distribution Width CV 14.6 % (11.6-14.6); RBC Distribution Width SD 52.6 fl (35.1-43.9); Red Blood Count 4.32 M/mm3 (4.2-5.4); White Blood Count 12.7 K/mm3 (4.4-11.0)
--- NOTE | 2018-12-18 12:46 | PCM.PN.ID ---
Patient Problems: Active and Suspected Problems (Last Reviewed 12/13/18 @ 21:23 by Farhat Strange MD) Hypertensive urgency (Acute) Subjective: Feeling better, no fever, head ok. - Physical Exam Vitals/I&O's: Vital Signs Temp Pulse Resp BP Pulse Ox 97.8 F 62 14 138/65 H 94 12/18/18 08:07 12/18/18 10:17 12/18/18 08:13 12/18/18 08:07 12/18/18 08:44 Oxygen Flow Rate (L/min) 3 Oxygen Delivery Method Room Air Weight: 93 kg Body Mass Index (BMI) 39.0 Finger Stick Blood Glucose 187 Intake and Output for Last 24 Hours 12/16/18 12/17/18 12/18/18 23:59 23:59 23:59 Intake Total 1844.75 / 1844.75 892 / 892 200 / 200 Output Total 350 / 350 177 / 177 Balance 1494.75 / 1494.75 715 / 715 200 / 200 General: Alert, Cooperative, No apparent distress Lungs: Clear to auscultation, Normal air movement Cardiovascular: Regular rate, Regular Rhythm Abdomen: Soft, Non Tender, Non-Distended Skin: Ulcer/ Wound - posterior scalp, dry Laboratory Results 12/18/18 09:39: WBC 12.7 H, RBC 4.32, Hgb 12.3, Hct 42.2, MCV 97.7, MCH 28.5, MCHC 29.1 L, RDW Std Deviation 52.6 H, RDW Coeff of Carissa 14.6, Plt Count 286, MPV 10.3, Immature Gran % (Auto) 0.300, Neut % (Auto) 77.8 H, Lymph % (Auto) 13.6 L, [place] % (Auto) 6.4, Eos % (Auto) 1.7, Baso % (Auto) 0.2, Absolute Neuts (auto) 9.9 H, Absolute Lymphs (auto) 1.73, Nucleated RBC % 0 12/18/18 09:39: Sodium 143, Potassium 3.4 L, Chloride 105, Carbon Dioxide 33.0 H, Anion Gap 5, BUN 23 H, Creatinine 1.29 H, Estim Creat Clear Calc 27.48, Est GFR (MDRD) Af Amer 52 L, Est GFR (MDRD) Non-Af 43 L, BUN/Creatinine Ratio 17.8, Glucose 163 H, Calcium 8.9 Current Medications Acetaminophen (Tylenol) 650 mg PO Q6H PRN PRN PRN Reason: Pain Score 1-11/14 Last Admin: 12/14/18 20:48 Dose: 650 mg Documented by: Amiodarone HCl (Cordarone) 200 mg PO DAILY [facility] Last Admin: 12/18/18 08:49 Dose: 200 mg Documented by: Amlodipine Besylate (Norvasc) 5 mg PO DAILY [facility] Last Admin: 12/18/18 08:51 Dose: 5 mg Documented by: Budesonide (Pulmicort Aerosol) 0.5 mg INHALATION Q12H.RT [facility] Last Admin: 12/18/18 07:14 Dose: 0.5 mg Documented by: Docusate Sodium (Colace) 100 mg PO BID [facility] Last Admin: 12/18/18 08:48 Dose: 100 mg Documented by: Donepezil HCl (Aricept) 5 mg PO DAILY [facility] Last Admin: 12/18/18 08:48 Dose: 5 mg Documented by: Duloxetine HCl (Cymbalta) 30 mg PO DAILY [facility] Last Admin: 12/18/18 08:49 Dose: 30 mg Documented by: Ergocalciferol (Vitamin D) 50,000 unit PO QWEEK [facility] Last Admin: 12/16/18 09:59 Dose: 50,000 unit Documented by: Famotidine (Pepcid) 20 mg PO DAILY [facility] Last Admin: 12/18/18 08:52 Dose: 20 mg Documented by: Ferrous Sulfate (Ferrous Sulfate) 325 mg PO DAILYCM [facility] Last Admin: 12/18/18 08:47 Dose: 325 mg Documented by: Furosemide (Lasix) 60 mg PO DAILY [facility] Last Admin: 12/18/18 08:49 Dose: 60 mg Documented by: Gabapentin (Neurontin) 600 mg PO BID [facility] Last Admin: 12/18/18 08:51 Dose: 600 mg Documented by: Hydralazine HCl (Apresoline) 50 mg PO TID [facility] Last Admin: 12/18/18 05:48 Dose: 50 mg Documented by: Hydralazine HCl (Apresoline Iv) 10 mg IV Q4H PRN PRN PRN Reason: SBP >180 mmhg Hydrocortisone Acetate (Anusol Hc) 25 mg RECTAL BID PRN PRN Reason: Hemorrhoids Sodium Chloride () 250 mls @ 15 mls/hr IV .[id number] PRN PRN Reason: Saline Flush Last Infusion: 12/17/18 11:13 Dose: Infused Documented by: Linezolid (Zyvox) 600 mg PO Q12 [facility] Last Admin: 12/18/18 08:52 Dose: 600 mg Documented by: Magnesium Oxide (Mag-Ox 400) 400 mg PO BID [facility] Last Admin: 12/18/18 08:50 Dose: 400 mg Documented by: Metoprolol Tartrate (Lopressor (Beta Tommy)) 50 mg PO BID [facility] Last Admin: 12/18/18 08:56 Dose: Not Given Documented by: Metronidazole (Flagyl) 500 mg PO TID [facility] Last Admin: 12/18/18 05:48 Dose: 500 mg Documented by: Nutritional Formula (Ej - [place] Flavor) [facility] Last Admin: 12/18/18 08:47 Dose: Not Given Documented by: Nystatin (Mycostatin Powder) 1 applic TOPICAL BID [facility]; Protocol Last Admin: 12/18/18 08:51 Dose: 1 appful Documented by: Ondansetron HCl (Zofran) 4 mg IV Q6H PRN PRN PRN Reason: NAUSEA Oxycodone HCl (Oxyir) 10 mg PO Q4H PRN PRN PRN Reason: Pain Score 6-10/10 Oxycodone HCl (Oxyir) 5 mg PO Q4H PRN PRN PRN Reason: Pain Score 4-5/10 Last Admin: 12/15/18 10:58 Dose: 5 mg Documented by: Pantoprazole Sodium (Protonix) 40 mg PO DAILY [facility] Last Admin: 12/18/18 08:52 Dose: 40 mg Documented by: Phenazopyridine HCl (Azo Standard) 190 mg PO TID PRN PRN PRN Reason: URINARY BURNING Potassium Chloride (K-Dur) [facility] Last Admin: 12/18/18 08:48 Dose: 20 meq Documented by: Promethazine HCl (Phenergan Tablet) 25 mg PO Q4H PRN PRN PRN Reason: NAUSEA/VOMITING Rivaroxaban (Xarelto) 15 mg PO DAILY@1700 [facility] Last Admin: 12/17/18 17:06 Dose: 15 mg Documented by: Sodium Chloride () 10 - 40 ml IV UD PRN PRN Reason: SALINE FLUSH Last Admin: 12/14/18 13:09 Dose: 10 ml Documented by: Medical Necessity - Tobacco Use Smoking Status: Former smoker Tobacco Use: Non-smoker Route of nutrition/ use of supplements: [] Nutritional Intake: [] IV Site: [] [place] Catheter: [] - Assessment/Plan Antibiotics: [] Assessment/Plan: [] Active and Suspected Problems (Last Reviewed 12/13/18 @ 21:23 by Farhat Strange MD) Hypertensive urgency (Acute) Posterior scalp infected wound - 12/09 wound cx with enterococcus, MRSE, corynebacteria, and anaerobes. Cont with linezolid/flagyl. Plan on short course po at discharge, stop date 12/21/18. Monitoring for serotonin syndome with linezolid and SSRI. Had angioedema with vanc here 12/14. Wrote rx. Will follow, d/w case managers
--- NOTE | 2018-12-18 13:19 | NURSING ---
Read and reviewed SN documentation
--- NOTE | 2018-12-18 14:44 | CASEMGMT ---
Call to [facility] pharmacy to check on Linezolid coverage/cost and per pharmacy, med needs a prior auth at this time. Call to [employer] and prior auth completed via phone at this time and sent for review at this time. Per Yahaira, it may take up to 24 hours for prior auth to be approved/denied and they will fax once decided. Dr. Brown aware, voices understanding. nuha Flores RN, and Magali RN aware of same, voice understanding. CM to follow. Alexander CONTE CM
[2018-12-18] MEDS: Rivaroxaban 15 MG Tablet PO (17:09)
[2018-12-18] MEDS: Metoprolol Tartrate 50 MG Tablet PO (21:09)
--- NOTE | 2018-12-18 21:57 | PCM.PN.SRG ---
Subjective: Patient is resting comfortably. Awaiting approval from Insurance regarding the Zyvox antibiotics. - Physical Exam Vitals/I&O's: Vital Signs Temp Pulse Resp BP Pulse Ox 97.8 F 56 L 18 139/50 H 98 12/18/18 21:03 12/18/18 23:00 12/18/18 21:03 12/18/18 21:03 12/18/18 21:03 Oxygen Flow Rate (L/min) 3 Oxygen Delivery Method Room Air Weight: 205 lb 0.478 oz Body Mass Index (BMI) 39.0 Finger Stick Blood Glucose 187 Intake and Output for Last 24 Hours 12/17/18 12/18/18 12/19/18 23:59 23:59 23:59 Intake Total 892 / 892 1160 / 1560 400 / 400 Output Total 177 / 177 Balance 715 / 715 1160 / 1560 400 / 400 General: Alert, Oriented x3 HEENT: PERRLA, EOMI Oral: Moist Mucosa Neck: Supple Lungs: Clear to auscultation Cardiovascular: Regular rate, Regular Rhythm Abdomen: Soft, Non-Distended Extremities: Edema - mild edema in lower extremities. Skin: Ulcer/ Wound - top of scalp wound with occipital extension stable. Some granulation tissue seen. No exposed bone. Redressed with Silver dressing. Measures 2 x 1.4 cm. Neurological: Cranial nerves II-XII grossly intact Psych/Mental Status: Normal Affect, Appropriate Laboratory Results 12/18/18 09:39: WBC 12.7 H, RBC 4.32, Hgb 12.3, Hct 42.2, MCV 97.7, MCH 28.5, MCHC 29.1 L, RDW Std Deviation 52.6 H, RDW Coeff of Carissa 14.6, Plt Count 286, MPV 10.3, Immature Gran % (Auto) 0.300, Neut % (Auto) 77.8 H, Lymph % (Auto) 13.6 L, [place] % (Auto) 6.4, Eos % (Auto) 1.7, Baso % (Auto) 0.2, Absolute Neuts (auto) 9.9 H, Absolute Lymphs (auto) 1.73, Nucleated RBC % 0 12/18/18 09:39: Sodium 143, Potassium 3.4 L, Chloride 105, Carbon Dioxide 33.0 H, Anion Gap 5, BUN 23 H, Creatinine 1.29 H, Estim Creat Clear Calc 27.48, Est GFR (MDRD) Af Amer 52 L, Est GFR (MDRD) Non-Af 43 L, BUN/Creatinine Ratio 17.8, Glucose 163 H, Calcium 8.9 Culture from 12/09/18 - Enterococcus faecalis, MRSE, Corynebacterium amycolatum/xer, and Anaerobic cocci. Current Medications Acetaminophen (Tylenol) 650 mg PO Q6H PRN PRN PRN Reason: Pain Score 1-11/14 Last Admin: 12/14/18 20:48 Dose: 650 mg Documented by: Amiodarone HCl (Cordarone) 200 mg PO DAILY [facility] Last Admin: 12/18/18 08:49 Dose: 200 mg Documented by: Amlodipine Besylate (Norvasc) 5 mg PO DAILY [facility] Last Admin: 12/18/18 08:51 Dose: 5 mg Documented by: Budesonide (Pulmicort Aerosol) 0.5 mg INHALATION Q12H.RT [facility] Last Admin: 12/18/18 20:47 Dose: 0.5 mg Documented by: Docusate Sodium (Colace) 100 mg PO BID [facility] Last Admin: 12/18/18 21:10 Dose: Not Given Documented by: Donepezil HCl (Aricept) 5 mg PO DAILY [facility] Last Admin: 12/18/18 08:48 Dose: 5 mg Documented by: Duloxetine HCl (Cymbalta) 30 mg PO DAILY [facility] Last Admin: 12/18/18 08:49 Dose: 30 mg Documented by: Ergocalciferol (Vitamin D) 50,000 unit PO QWEEK [facility] Last Admin: 12/16/18 09:59 Dose: 50,000 unit Documented by: Famotidine (Pepcid) 20 mg PO DAILY [facility] Last Admin: 12/18/18 08:52 Dose: 20 mg Documented by: Ferrous Sulfate (Ferrous Sulfate) 325 mg PO DAILYCM [facility] Last Admin: 12/18/18 08:47 Dose: 325 mg Documented by: Furosemide (Lasix) 60 mg PO DAILY [facility] Last Admin: 12/18/18 08:49 Dose: 60 mg Documented by: Gabapentin (Neurontin) 600 mg PO BID [facility] Last Admin: 12/18/18 21:09 Dose: 600 mg Documented by: Hydralazine HCl (Apresoline) 50 mg PO TID [facility] Last Admin: 12/18/18 21:10 Dose: 50 mg Documented by: Hydralazine HCl (Apresoline Iv) 10 mg IV Q4H PRN PRN PRN Reason: SBP >180 mmhg Hydrocortisone Acetate (Anusol Hc) 25 mg RECTAL BID PRN PRN Reason: Hemorrhoids Sodium Chloride () 250 mls @ 15 mls/hr IV .[id number] PRN PRN Reason: Saline Flush Last Infusion: 12/17/18 11:13 Dose: Infused Documented by: Linezolid (Zyvox) 600 mg PO Q12 [facility] Last Admin: 12/18/18 21:10 Dose: 600 mg Documented by: Magnesium Oxide (Mag-Ox 400) 400 mg PO BID [facility] Last Admin: 12/18/18 21:09 Dose: 400 mg Documented by: Metoprolol Tartrate (Lopressor (Beta Tommy)) 50 mg PO BID [facility] Last Admin: 12/18/18 21:09 Dose: 50 mg Documented by: Metronidazole (Flagyl) 500 mg PO TID [facility] Last Admin: 12/18/18 21:10 Dose: 500 mg Documented by: Nutritional Formula (Ej - [place] Flavor) [facility] Last Admin: 12/18/18 17:04 Dose: Not Given Documented by: Nystatin (Mycostatin Powder) 1 applic TOPICAL BID [facility]; Protocol Last Admin: 12/18/18 21:10 Dose: 1 appful Documented by: Ondansetron HCl (Zofran) 4 mg IV Q6H PRN PRN PRN Reason: NAUSEA Oxycodone HCl (Oxyir) 10 mg PO Q4H PRN PRN PRN Reason: Pain Score 6-10/10 Oxycodone HCl (Oxyir) 5 mg PO Q4H PRN PRN PRN Reason: Pain Score 4-5/10 Last Admin: 12/15/18 10:58 Dose: 5 mg Documented by: Pantoprazole Sodium (Protonix) 40 mg PO DAILY [facility] Last Admin: 12/18/18 08:52 Dose: 40 mg Documented by: Phenazopyridine HCl (Azo Standard) 190 mg PO TID PRN PRN PRN Reason: URINARY BURNING Potassium Chloride (K-Dur) [facility] Last Admin: 12/18/18 17:09 Dose: 20 meq Documented by: Promethazine HCl (Phenergan Tablet) 25 mg PO Q4H PRN PRN PRN Reason: NAUSEA/VOMITING Rivaroxaban (Xarelto) 15 mg PO DAILY@1700 [facility] Last Admin: 12/18/18 17:09 Dose: 15 mg Documented by: Sodium Chloride () 10 - 40 ml IV UD PRN PRN Reason: SALINE FLUSH Last Admin: 12/14/18 13:09 Dose: 10 ml Documented by: Medical Necessity - Tobacco Use Smoking Status: Former smoker Tobacco Use: Non-smoker Assessment/Plan All Active Problems (Last Reviewed 12/13/18 @ 21:23 by Farhat Strange MD) Hypertensive urgency (Acute) Open wound of scalp with complication (Acute) Hematoma of scalp (Acute) Lymphedema of both lower extremities (Acute) Acute diastolic (congestive) heart failure (Acute) Acute sepsis (Acute) Allergic dermatitis (Acute) Angioedema (Acute) Adverse drug effect (Acute) Wound of left lower extremity (Acute) Cellulitis (Acute) Metabolic encephalopathy (Resolved) Ulcer of left lower extremity with fat layer exposed (Resolved) Cognitive impairment (Resolved) Open wound of left elbow (Resolved) Open wound of right elbow (Resolved) UTI (urinary tract infection) (Resolved) Wound of right foot (Resolved) 1. Nonhealing traumatic hematoma wound top of scalp at vertex with occipital extension. 2. Hematoma top of scalp at vertex with occipital extension. 3. Accidental fall. 4. Acute head injury with scalp hematoma without loss of consciousness. 5. Diabetes mellitus. 6. Former smoker. 7. Hypertensive urgency, stable. 8. Facial swelling and edema from allergic reaction to Vancomycin, resolved. The scalp wound is stable. She tolerated Silver dressing change today. Some granulation tissue seen. No bleeding seen. Her wound cultures from 12/09/18 showed Enterococcus faecalis, MRSE, Corynebacterium amycolatum/xer, and Anaerobic cocci. Continue Linezolid and Flagyl. Was seen by Infectious Diseases. Can be discharged on po antibiotics. Awaiting Insurance approval for the Linezolid. Her hypertension urgency has stabilized. She is on Amlodipine, Metoprolol, and Hydralazine. With the Silver dressing wound care and antibiotics, there is improvement in the wound. So will hold off on operative debridement at this time. Would not consider wound closure until the infection has been treated with antibiotics. With her history of being on Xarelto, will lean more toward a skin graft for wound closure rather than a complex flap that would require undermining which would increase the risk of wound healing problems after surgery because of potential bleeding issues from the Xarelto. It was discussed with the patient that she is at risk for developing osteomyelitis. If present, then oysterman antibiotics would be necessary along with partial ostectomy for osteomyelitis. At that point, complex wound closure may require evaluation and treatment at a tertiary center as complex flaps using microvascular free tissue transfer may be necessary. She is able to ambulate with a walker. She is not a candidate for an ECF. Home Health has been arranged to assist with the Silver dressing changes before discharge. After discharge followup at the [facility]. Code Visit Inpatient E&M: 92346 Subs Hosp L1 - ICD-10 - S01.00xA, s00.03xA, W19.xxxA, S09.90xA, I16.0, T50.905A, E11.9, Z87.891
[2018-12-19] VITALS (10 sets, daily range): BP systolic 134–150; BP diastolic 46–74; PULSE 56–64; RESP 18–20; TEMP 36.6–36.8; O2SAT 93–95
[2018-12-19] MEDS: hydrALAZINE 50 MG Tablet PO ×2 (05:48→13:49)
[2018-12-19] MEDS: metroNIDAZOLE 500 MG Tablet PO ×2 (05:48→13:49)
[2018-12-19] MEDS: Budesonide Respules 0.5 MG/2 ML AMPUL.NEB. INHALATION (06:54)
--- NOTE | 2018-12-19 09:02 | CASEMGMT ---
Addendum entered by Digna Queen 12/19/18 10:31: Call to [facility] and Mandy is aware that pt will be discharging today. Alexander CONTE CM Original Note: Pt's sheri Boydabdoul sent a fax approval for pt's Linezolid at this time. Mark, charge nurse, aware, Dr. Mcneal and Dr. Alie stuart at this time. Pt to be sent home with [facility] today. Alexander CONTE CM
[2018-12-19] MEDS: Amiodarone 200 MG Tablet PO (09:08)
[2018-12-19] MEDS: Gabapentin 600 MG Tablet PO (09:08)
[2018-12-19] MEDS: Docusate Sodium 100 MG Capsule PO (09:09)
[2018-12-19] MEDS: Linezolid 600 MG Tablet PO (09:09)
[2018-12-19] MEDS: Famotidine 20 MG Tablet PO (09:09)
[2018-12-19] MEDS: Magnesium Oxide 400 MG Tablet PO (09:09)
[2018-12-19] MEDS: Pantoprazole Sodium 40 MG Tablet PO (09:09)
[2018-12-19] MEDS: amLODIPine 5 MG Tablet PO (09:09)
[2018-12-19] MEDS: DULoxetine Hcl 30 MG Capsule PO (09:09)
[2018-12-19] MEDS: Furosemide 20 MG Tablet 60 MG PO (09:09)
[2018-12-19] MEDS: Donepezil HCl 5 MG Tablet PO (09:10)
[2018-12-19] MEDS: Nystatin Powder 15gm Bottle 1 APPLIC TOPICAL (09:11)
[2018-12-19] MEDS: Ferrous Sulfate 325 MG Tablet PO (09:11)
[2018-12-19] MEDS: Metoprolol Tartrate 50 MG Tablet PO (09:12)
--- NOTE | 2018-12-19 10:14 | DCINST_ITS ---
- Discharge Diagnoses Current Active Problems: Current Active and Chronic Problems (Last Reviewed 12/13/18 @ 21:23 by Farhat Strange MD) Hypertensive urgency (Acute) You will use the following diet at home:: Calorie/Carbohydrate Controlled (specify 1200, 1400, etc), Other - encourage nutritional supplementation with p rotein to help the healing process. Discharge Activity: May not drive while taking narcotic pain medications., May Shower - on the days the silver dressing change is done., - - keep head elevated. May shower in (days): 2 - on the days the silver dressing change is done. May resume sexual activity in: No Restrictions Weight Bearing Status: Weight bearing as tolerated Keep extremity elevated above heart level: - - elevate head. Call your doctor if your incision/area has: Continuous Slow Oozing, Sudden Increased Bleeding, Increased Pain/ Swelling, Increased Redness, Foul Smelling Discharge, Swelling at the incision site Call your doctor if you observe: Fever of 101 or Higher, Coldness, Increased Pain, Shortness of breath, Chest pain, Calf discomfort, Uncontrolled pain Suture Line Care: - - silver dressing changes three times per week to scalp Change Dressing in (Days):: 2 - silver dressing changes three times per week Cleanse incision/area with: Soap & Water - may cleanse the wound with soap and water on the days the silver dressing change is done., - - may shower on the days the silver dressing change is done. Additional Dressing/Incision Instructions:: Home Health to assist with silver dressing changes to scalp three times per week. may cleanse the scalp wound with soap and water on the days the silver dressing change is done. Allergies/Adverse Reactions: Allergies codeine Allergy (Unknown, Verified 12/11/18 13:28) Hives cefazolin Allergy (Verified 12/11/18 13:28) Rash ciprofloxacin [From Cipro] Allergy (Verified 12/11/18 13:28) Hives ciprofloxacin HCl [From Cipro] Allergy (Verified 12/11/18 13:28) Hives Latex, Natural Rubber Allergy (Verified 12/11/18 13:28) Rash Penicillins [PCN] Allergy (Verified 12/11/18 13:28) Hives vancomycin Allergy (Verified 12/14/18 18:01) Angioedema adhesive tape Adverse Reaction (Verified 12/11/18 13:28) Rash Medications to take at Discharge Amiodarone HCl 200 mg PO DAILY 04/09/18 Duloxetine HCl 60 mg PO DAILY 04/09/18 Magnesium Oxide [Mag-Ox 400] 400 mg PO BID 04/09/18 Metoprolol Tartrate [Lopressor (beta man)] 50 mg PO BID 04/09/18 Pantoprazole Sodium [Protonix] 40 mg PO DAILY 04/09/18 Rivaroxaban [Xarelto] 15 mg PO DAILY 04/09/18 Docusate Sodium 100 mg PO DAILY PRN PRN 05/22/18 Ergocalciferol (Vitamin D2) [Vitamin D2] 50,000 unit PO DAILY 05/22/18 Donepezil HCl 5 mg PO DAILY 08/19/18 Potassium Chloride [Klor-Con M20] 20 meq PO BID 08/19/18 Furosemide [Lasix] 60 mg PO DAILY #1 tab 08/23/18 ferrous sulfate 325 mg (65 mg iron) tablet,delayed release 325 mg PO DAILY 09/25/18 gabapentin 300 mg capsule 600 mg PO BID cap 09/25/18 budesonide 180 mcg/actuation breath activated powder inhaler 1 inh INHALATION BID inhaler 11/18/18 Hydrocortisone [Anusol Hc] 25 mg RECTAL BID PRN 12/11/18 Albuterol Sulfate [Albuterol Sulfate Hfa] 8.5 gm IH PRN PRN 12/13/18 Amlodipine [Norvasc] 2.5 mg PO DAILY 12/13/18 Phenazopyridine HCl [Pyridium] 200 mg PO TID 12/13/18 Linezolid [Zyvox] 600 mg PO Q12 #5 tab 12/18/18 metroNIDAZOLE [Flagyl] 500 mg PO TID #9 tab 12/18/18 Amlodipine [Norvasc] 5 mg PO DAILY tab 12/19/18 Docusate Sodium [Colace] 100 mg PO BID cap 12/19/18 Famotidine [Pepcid] 20 mg PO DAILY tab 12/19/18 Furosemide [Lasix] 60 mg PO DAILY tab 12/19/18 Oxycodone HCl/Acetaminophen [Percocet 5/325] 1 tab PO TID PRN PRN 7 Days #20 tab 12/19/18 Rivaroxaban [Xarelto] 15 mg PO DAILY@1700 tab 12/19/18 Silver/Hydrocolloid Dressing [Aquacel-Ag W-Hydrofiber Dress] 1 ea TP QODAY 30 Days #5 bandage 12/19/18 hydrALAZINE [Apresoline] 50 mg PO TID tab 12/19/18 proMETHazine tablet [Phenergan tablet] 25 mg PO Q4H PRN PRN tab 12/19/18 The following prescriptions were given: Silver/Hydrocolloid Dressing [Aquacel-Ag W-Hydrofiber Dress] 1 ea TP QODAY 30 Days #5 bandage Prescription Printed metroNIDAZOLE [Flagyl] 500 mg PO TID #9 tab Transmission Status: Received by [facility] Oxycodone HCl/Acetaminophen [Percocet 5/325] 1 tab PO TID PRN PRN 7 Days #20 tab PRN Reason: Pain Prescription Printed Linezolid [Zyvox] 600 mg PO Q12 #5 tab Transmission Status: Received by [facility] Primary Care Physician: Octaviano Franco Chi, MD [Primary Care Provider] - Please follow up with your Primary Care Physician in: 2 weeks to readjust the Cymbalta once the Zyvox has been completed. Test Results: Test results from this visit will be discussed in further detail at your follow- up appointment, if applicable. Please Follow Up With: Ra Wayne MD When: wound center in one week. call [phone] for appt. Please Follow Up With: Farhat Strange MD When: wound center in 2-4 weeks. call [phone] for appt. Proposed Discharge Date: 12/19/18
--- NOTE | 2018-12-19 10:21 | PCM.DC.SUM ---
Discharge Date and Diagnosis Date of Admission: 12/13/18 Date of Discharge: 12/19/18 - Primary Discharge Diagnosis Hypertensive urgency Facial swelling and edema from allergic reaction to Vancomycin Nonhealing traumatic hematoma wound top of scalp with occipital extension Hematoma scalp - Secondary Discharge Diagnosis Accidental fall Acute head injury Depression Former smoker Essential hypertension Type 2 diabetes mellitus Venous insufficiency of both lower extremities Bilateral lower extremity edema Diastolic CHF Iron deficiency anemia PVD (peripheral vascular disease) Presence of stent in coronary artery Atherosclerotic heart disease of [place] coronary artery without angina pectoris S/P CABG (coronary artery bypass graft) Paroxysmal atrial fibrillation Hyperlipidemia Hospital Course and Treatment Imaging Results: Diagnostic Data Chest X-Ray 12/13/18 17:10 IMPRESSION: No acute finding Electronically Signed: Benjamin Doss DO at 21:35 EST Tel , Service support , Consultations 12/13/18 13:39 Consult: Onc/Wound/ball warper tender Routine Comment: Reason for Consult:: assist with wound care to scalp Comments:: top of scalp at vertex with occipital extension Hospitalist Group - Dr. Hubbard and Dr. Mcneal. Infectious Diseases - Dr. Brown. Operations: None Procedures: PICC line placement Summary of Care Provided: Patient was scheduled for surgery 12/13/18. In the OR, her BP was 219/77. She denied any headache or visual problems or nausea/vomiting. With anesthesia, there is increased risk of cardiac issues with a pressure that high. The surgery is not a life and emergency so the surgery was cancelled today after conferring with Anesthesia. The patient will be admitted for further evaluation and treatment. I consulted Hospitalist to help with medical management. The wound culture that was done from the office earlier in the week on 12/09/18 showed Enterococcus and MRSE. She was scheduled to get Vancomycin perioperatively for the surgery. Will continue the Vancomycin. Wound care on the scalp was done with Silver dressing changes daily. The next day, 12/14/18, she had an allergic reaction to the Vancomycin as she developed facial and tongue swelling. She was transferred to the ICU and was given Solu-Medrol. She did not need to be intubated. Additional culture results showed Anaerobic cocci. Flagyl was added to the Zyvox which was started as an alternative to the Vancomycin. After one day in the ICU, she was transferred back to PCU as the swelling had resolved. Her blood pressure also improved on the regimen of Amlodipine, Metoprolol, and Hydralazine. On 12/16/18, she was unsteady on her feet and PT was consulted to evaluate to see if she needed to go to an ECF at discharge. Infectious Diseases was also consulted and recommended continuing the Zyvox and Flagyl and will continue them orally at discharge. On 12/17/18, the patient was able to ambulate and did not qualify for an ECF. In preparation for discharge, Home Health was being arranged. On 12/18/18, Home Health was arranged to assist with the Silver dressing changes three times per week. Discharge had to be postponed one more day because of the delay of Insurance approval for the Zyvox. On 12/19/18, Insurance approved the Zyvox and she was discharged home in satisfactory condition. With the Silver dressing wound care and antibiotics, there is improvement in the wound. So will hold off on operative debridement at this time. Would not consider wound closure until the infection has been treated with antibiotics. With her history of being on Xarelto, will lean more toward a skin graft for wound closure rather than a complex flap that would require undermining which would increase the risk of wound healing problems after surgery because of potential bleeding issues from the Xarelto. It was discussed with the patient that she is at risk for developing osteomyelitis. If present, then fci antibiotics would be necessary along with partial ostectomy for osteomyelitis. At that point, complex wound closure may require evaluation and treatment at a tertiary center as complex flaps using microvascular free tissue transfer may be necessary. Home Health has been arranged to assist with the Silver dressing changes three times per week at discharge. After discharge followup at the Wound Center in one week. Wrote scripts for Flagyl and Zyvox. Wrote script for Percocet for pain (20 tabs). Because of the Zyvox and the risk of Serotonin Syndrome, the dose of Cymbalta was decreased. When the Zyvox is completed, then can increase the Cymbalta. She will followup with her PCP in 2 weeks to evaluate this medication. Subjective: Patient is resting comfortably. The Zyvox has been approved by her Insurance. - Physical Exam Vitals/I&O's: Vital Signs Temp Pulse Resp BP Pulse Ox 97.9 F 64 18 143/74 H 93 12/19/18 09:15 12/19/18 09:15 12/19/18 09:15 12/19/18 09:15 12/19/18 09:15 Oxygen Flow Rate (L/min) 3 Oxygen Delivery Method Room Air Weight: 192 lb 0.362 oz Body Mass Index (BMI) 39.0 Finger Stick Blood Glucose 187 Intake and Output for Last 24 Hours 12/17/18 12/18/18 12/19/18 23:59 23:59 23:59 Intake Total 892 / 892 1160 / 1560 700 / 700 Output Total 177 / 177 Balance 715 / 715 1160 / 1560 700 / 700 General: Alert, Oriented x3 HEENT: PERRLA, EOMI Oral: Moist Mucosa Neck: Supple Lungs: Clear to auscultation Cardiovascular: Regular rate, Regular Rhythm Abdomen: Soft, Non-Distended Extremities: Edema - mild edema in lower extremities. Skin: Ulcer/ Wound Neurological: Cranial nerves II-XII grossly intact Psych/Mental Status: Normal Affect, Appropriate Culture from 12/09/18 - Enterococcus faecalis, MRSE, Corynebacterium amycolatum/xer, and Anaerobic cocci. Current Medications Acetaminophen (Tylenol) 650 mg PO Q6H PRN PRN PRN Reason: Pain Score 1-10/10 Last Admin: 12/14/18 20:48 Dose: 650 mg Documented by: Amiodarone HCl (Cordarone) 200 mg PO DAILY [facility] Last Admin: 12/19/18 09:08 Dose: 200 mg Documented by: Amlodipine Besylate (Norvasc) 5 mg PO DAILY [facility] Last Admin: 12/19/18 09:09 Dose: 5 mg Documented by: Budesonide (Pulmicort Aerosol) 0.5 mg INHALATION Q12H.RT [facility] Last Admin: 12/19/18 06:54 Dose: 0.5 mg Documented by: Docusate Sodium (Colace) 100 mg PO BID [facility] Last Admin: 12/19/18 09:09 Dose: 100 mg Documented by: Donepezil HCl (Aricept) 5 mg PO DAILY [facility] Last Admin: 12/19/18 09:10 Dose: 5 mg Documented by: Duloxetine HCl (Cymbalta) 30 mg PO DAILY [facility] Last Admin: 12/19/18 09:09 Dose: 30 mg Documented by: Ergocalciferol (Vitamin D) 50,000 unit PO QWEEK [facility] Last Admin: 12/16/18 09:59 Dose: 50,000 unit Documented by: Famotidine (Pepcid) 20 mg PO DAILY [facility] Last Admin: 12/19/18 09:09 Dose: 20 mg Documented by: Ferrous Sulfate (Ferrous Sulfate) 325 mg PO DAILYCM [facility] Last Admin: 12/19/18 09:11 Dose: 325 mg Documented by: Furosemide (Lasix) 60 mg PO DAILY [facility] Last Admin: 12/19/18 09:09 Dose: 60 mg Documented by: Gabapentin (Neurontin) 600 mg PO BID [facility] Last Admin: 12/19/18 09:08 Dose: 600 mg Documented by: Hydralazine HCl (Apresoline) 50 mg PO TID [facility] Last Admin: 12/19/18 05:48 Dose: 50 mg Documented by: Hydralazine HCl (Apresoline Iv) 10 mg IV Q4H PRN PRN PRN Reason: SBP >180 mmhg Hydrocortisone Acetate (Anusol Hc) 25 mg RECTAL BID PRN PRN Reason: Hemorrhoids Sodium Chloride () 250 mls @ 15 mls/hr IV .[id number] PRN PRN Reason: Saline Flush Last Infusion: 12/17/18 11:13 Dose: Infused Documented by: Linezolid (Zyvox) 600 mg PO Q12 [facility] Last Admin: 12/19/18 09:09 Dose: 600 mg Documented by: Magnesium Oxide (Mag-Ox 400) 400 mg PO BID [facility] Last Admin: 12/19/18 09:09 Dose: 400 mg Documented by: Metoprolol Tartrate (Lopressor (Beta Tommy)) 50 mg PO BID [facility] Last Admin: 12/19/18 09:12 Dose: 50 mg Documented by: Metronidazole (Flagyl) 500 mg PO TID [facility] Last Admin: 12/19/18 05:48 Dose: 500 mg Documented by: Nutritional Formula (Ej - [place] Flavor) [facility] Last Admin: 12/19/18 09:11 Dose: Not Given Documented by: Nystatin (Mycostatin Powder) 1 applic TOPICAL BID [facility]; Protocol Last Admin: 12/19/18 09:11 Dose: 1 appful Documented by: Ondansetron HCl (Zofran) 4 mg IV Q6H PRN PRN PRN Reason: NAUSEA Oxycodone HCl (Oxyir) 10 mg PO Q4H PRN PRN PRN Reason: Pain Score 6-10/10 Oxycodone HCl (Oxyir) 5 mg PO Q4H PRN PRN PRN Reason: Pain Score 4-5/10 Last Admin: 12/15/18 10:58 Dose: 5 mg Documented by: Pantoprazole Sodium (Protonix) 40 mg PO DAILY [facility] Last Admin: 12/19/18 09:09 Dose: 40 mg Documented by: Phenazopyridine HCl (Azo Standard) 190 mg PO TID PRN PRN PRN Reason: URINARY BURNING Potassium Chloride (K-Dur) [facility] Last Admin: 12/19/18 09:10 Dose: 20 meq Documented by: Promethazine HCl (Phenergan Tablet) 25 mg PO Q4H PRN PRN PRN Reason: NAUSEA/VOMITING Rivaroxaban (Xarelto) 15 mg PO DAILY@1700 [facility] Last Admin: 12/18/18 17:09 Dose: 15 mg Documented by: Sodium Chloride () 10 - 40 ml IV UD PRN PRN Reason: SALINE FLUSH Last Admin: 12/14/18 13:09 Dose: 10 ml Documented by: Discharge Diet: Carb Control Diet, - - encourage nutritional supplementation with protein to help the healing process. Discharge Activity: May not drive while taking narcotic pain medications., May Shower - on the days the silver dressing change is done., - - keep head elevated. May shower in (days): 2 - on the days the silver dressing change is done. May resume sexual activity in: No Restrictions Weight Bearing Status: Weight bearing as tolerated Keep extremity elevated above heart level: - - elevate head. Call your doctor if your incision/area has: Continuous Slow Oozing, Sudden Increased Bleeding, Increased Pain/ Swelling, Increased Redness, Foul Smelling Discharge, Swelling at the incision site Call your doctor if you observe: Fever of 101 or Higher, Coldness, Increased Pain, Shortness of breath, Chest pain, Calf discomfort, Uncontrolled pain Suture Line Care: - - silver dressing changes three times per week to scalp Change Dressing in (Days):: 2 - silver dressing changes three times per week Cleanse incision/area with: Soap & Water - may cleanse the wound with soap and water on the days the silver dressing change is done., - - may shower on the days the silver dressing change is done. Additional Dressing/Incision Instructions:: Home Health to assist with silver dressing changes to scalp three times per week. may cleanse the scalp wound with soap and water on the days the silver dressing change is done. Home Medications: Medications to take at Discharge Amiodarone HCl 200 mg PO DAILY 04/09/18 Duloxetine HCl 60 mg PO DAILY 04/09/18 Magnesium Oxide [Mag-Ox 400] 400 mg PO BID 04/09/18 Metoprolol Tartrate [Lopressor (beta tommy)] 50 mg PO BID 04/09/18 Pantoprazole Sodium [Protonix] 40 mg PO DAILY 04/09/18 Rivaroxaban [Xarelto] 15 mg PO DAILY 04/09/18 Docusate Sodium 100 mg PO DAILY PRN PRN 05/22/18 Ergocalciferol (Vitamin D2) [Vitamin D2] 50,000 unit PO DAILY 05/22/18 Donepezil HCl 5 mg PO DAILY 08/19/18 Potassium Chloride [Klor-Con M20] 20 meq PO BID 08/19/18 Furosemide [Lasix] 60 mg PO DAILY #1 tab 08/23/18 ferrous sulfate 325 mg (65 mg iron) tablet,delayed release 325 mg PO DAILY 09/25/18 gabapentin 300 mg capsule 600 mg PO BID cap 09/25/18 budesonide 180 mcg/actuation breath activated powder inhaler 1 inh INHALATION BID inhaler 11/18/18 Hydrocortisone [Anusol Hc] 25 mg RECTAL BID PRN 12/11/18 Albuterol Sulfate [Albuterol Sulfate Hfa] 8.5 gm IH PRN PRN 12/13/18 Amlodipine [Norvasc] 2.5 mg PO DAILY 12/13/18 Phenazopyridine HCl [Pyridium] 200 mg PO TID 12/13/18 Linezolid [Zyvox] 600 mg PO Q12 #5 tab 12/18/18 metroNIDAZOLE [Flagyl] 500 mg PO TID #9 tab 12/18/18 Amlodipine [Norvasc] 5 mg PO DAILY tab 12/19/18 Docusate Sodium [Colace] 100 mg PO BID cap 12/19/18 Furosemide [Lasix] 60 mg PO DAILY tab 12/19/18 Oxycodone HCl/Acetaminophen [Percocet 5/325] 1 tab PO TID PRN PRN 7 Days #20 tab 12/19/18 Rivaroxaban [Xarelto] 15 mg PO DAILY@1700 tab 12/19/18 Silver/Hydrocolloid Dressing [Aquacel-Ag W-Hydrofiber Dress] 1 ea TP QODAY 30 Days #5 bandage 12/19/18 hydrALAZINE [Apresoline] 50 mg GT TID #90 tab 12/19/18 proMETHazine tablet [Phenergan tablet] 25 mg PO Q4H PRN PRN tab 12/19/18 Following Prescrptions Were Given to Patient: hydrALAZINE [Apresoline] 50 mg GT TID #90 tab Transmission Status: Received by [facility] Silver/Hydrocolloid Dressing [Aquacel-Ag W-Hydrofiber Dress] 1 ea TP QODAY 30 Days #5 bandage Prescription Printed metroNIDAZOLE [Flagyl] 500 mg PO TID #9 tab Transmission Status: Received by [facility] Oxycodone HCl/Acetaminophen [Percocet 5/325] 1 tab PO TID PRN PRN 7 Days #20 tab PRN Reason: Pain Prescription Printed Linezolid [Zyvox] 600 mg PO Q12 #5 tab [facility] Status[facility] Primary Care Physician: Octaviano Franco Chi, MD [Primary Care Provider] - Please follow up with your Primary Care Physician in: 2 weeks to readjust the Cymbalta once the Zyvox has been completed. Please Follow Up With: Ra Wayne MD When: wound center in one week. call [phone] for appt. Please Follow Up With: Farhat Strange MD When: wound center in 2-4 weeks. call [phone] for appt. Disposition: Home with Home Health Minutes spent on discharge:: 40 Patient Condition:: Stable Medical Necessity - Tobacco Use Smoking Status: Former smoker Tobacco Use: Non-smoker Meaningful Use Info Meaningful Use Diagnoses (Choose all that apply): None applicable Code Visit Inpatient E&M: 28945 Disch Hosp - ICD-10 - S01.00xA, s00.03xA, W19.xxxA, S09.90xA, I16.0, T50.905A, E11.9, Z87.891
--- NOTE | 2018-12-19 10:48 | PN_ITS ---
Patient Problems: Active and Suspected Problems (Last Reviewed 12/13/18 @ 21:23 by Farhat Strange MD) Hypertensive urgency (Acute) Subjective: No issues overnight, feeling great. Vitals/I&O's: Vital Signs Temp Pulse Resp BP Pulse Ox 97.9 F 64 18 143/74 H 93 12/19/18 09:15 12/19/18 09:15 12/19/18 09:15 12/19/18 09:15 12/19/18 09:15 Oxygen Flow Rate (L/min) 3 Oxygen Delivery Method Room Air Weight: 192 lb 0.362 oz Body Mass Index (BMI) 39.0 Finger Stick Blood Glucose 187 Intake and Output for Last 24 Hours 12/17/18 12/18/18 12/19/18 23:59 23:59 23:59 Intake Total 892 / 892 1160 / 1560 700 / 700 Output Total 177 / 177 Balance 715 / 715 1160 / 1560 700 / 700 General: Alert, Oriented x3, Cooperative, No apparent distress HEENT: Atraumatic, PERRLA, EOMI, Normocephalic Oral: Moist Mucosa Neck: Supple, No JVD Lungs: Clear to auscultation, Normal air movement, No rhonchi, No wheeze, No rales, Diminished Cardiovascular: Regular rate, Regular Rhythm, Normal S1, Normal S2, No murmurs Abdomen: Soft, Non Tender, Non-Distended, No Hepato-splenomegaly Extremities: Capillary Refill Less than 3 Seconds, Edema - 1+ nonpitting edema bilaterally Skin: No rashes, No breakdown, Incision - Dressing over her scalp is intact Neurological: Neuro grossly intact, Sensory exam intact to light touch and pain Psych/Mental Status: Normal Affect, Appropriate Current Medications Acetaminophen (Tylenol) 650 mg PO Q6H PRN PRN PRN Reason: Pain Score 1-11/14 Last Admin: 12/14/18 20:48 Dose: 650 mg Documented by: Amiodarone HCl (Cordarone) 200 mg PO DAILY [facility] Last Admin: 12/19/18 09:08 Dose: 200 mg Documented by: Amlodipine Besylate (Norvasc) 5 mg PO DAILY [facility] Last Admin: 12/19/18 09:09 Dose: 5 mg Documented by: Budesonide (Pulmicort Aerosol) 0.5 mg INHALATION Q12H.RT [facility] Last Admin: 12/19/18 06:54 Dose: 0.5 mg Documented by: Docusate Sodium (Colace) 100 mg PO BID [facility] Last Admin: 12/19/18 09:09 Dose: 100 mg Documented by: Donepezil HCl (Aricept) 5 mg PO DAILY [facility] Last Admin: 12/19/18 09:10 Dose: 5 mg Documented by: Duloxetine HCl (Cymbalta) 30 mg PO DAILY [facility] Last Admin: 12/19/18 09:09 Dose: 30 mg Documented by: Ergocalciferol (Vitamin D) 50,000 unit PO QWEEK [facility] Last Admin: 12/16/18 09:59 Dose: 50,000 unit Documented by: Famotidine (Pepcid) 20 mg PO DAILY [facility] Last Admin: 12/19/18 09:09 Dose: 20 mg Documented by: Ferrous Sulfate (Ferrous Sulfate) 325 mg PO DAILYCM [facility] Last Admin: 12/19/18 09:11 Dose: 325 mg Documented by: Furosemide (Lasix) 60 mg PO DAILY [facility] Last Admin: 12/19/18 09:09 Dose: 60 mg Documented by: Gabapentin (Neurontin) 600 mg PO BID [facility] Last Admin: 12/19/18 09:08 Dose: 600 mg Documented by: Hydralazine HCl (Apresoline) 50 mg PO TID [facility] Last Admin: 12/19/18 05:48 Dose: 50 mg Documented by: Hydralazine HCl (Apresoline Iv) 10 mg IV Q4H PRN PRN PRN Reason: SBP >180 mmhg Hydrocortisone Acetate (Anusol Hc) 25 mg RECTAL BID PRN PRN Reason: Hemorrhoids Sodium Chloride () 250 mls @ 15 mls/hr IV .[id number] PRN PRN Reason: Saline Flush Last Infusion: 12/17/18 11:13 Dose: Infused Documented by: Linezolid (Zyvox) 600 mg PO Q12 [facility] Last Admin: 12/19/18 09:09 Dose: 600 mg Documented by: Magnesium Oxide (Mag-Ox 400) 400 mg PO BID [facility] Last Admin: 12/19/18 09:09 Dose: 400 mg Documented by: Metoprolol Tartrate (Lopressor (Beta Tommy)) 50 mg PO BID [facility] Last Admin: 12/19/18 09:12 Dose: 50 mg Documented by: Metronidazole (Flagyl) 500 mg PO TID [facility] Last Admin: 12/19/18 05:48 Dose: 500 mg Documented by: Nutritional Formula (Ej - [place] Flavor) [facility] Last Admin: 12/19/18 09:11 Dose: Not Given Documented by: Nystatin (Mycostatin Powder) 1 applic TOPICAL BID [facility]; Protocol Last Admin: 12/19/18 09:11 Dose: 1 appful Documented by: Ondansetron HCl (Zofran) 4 mg IV Q6H PRN PRN PRN Reason: NAUSEA Oxycodone HCl (Oxyir) 10 mg PO Q4H PRN PRN PRN Reason: Pain Score 6-10/10 Oxycodone HCl (Oxyir) 5 mg PO Q4H PRN PRN PRN Reason: Pain Score 4-5/10 Last Admin: 12/15/18 10:58 Dose: 5 mg Documented by: Pantoprazole Sodium (Protonix) 40 mg PO DAILY [facility] Last Admin: 12/19/18 09:09 Dose: 40 mg Documented by: Phenazopyridine HCl (Azo Standard) 190 mg PO TID PRN PRN PRN Reason: URINARY BURNING Potassium Chloride (K-Dur) [facility] meq [facility] Last Admin: 12/19/18 09:10 Dose: 20 meq Documented by: Promethazine HCl (Phenergan Tablet) 25 mg PO Q4H PRN PRN PRN Reason: NAUSEA/VOMITING Rivaroxaban (Xarelto) 15 mg PO DAILY@1700 [facility] Last Admin: 12/18/18 17:09 Dose: 15 mg Documented by: Sodium Chloride () 10 - 40 ml IV UD PRN PRN Reason: SALINE FLUSH Last Admin: 12/14/18 13:09 Dose: 10 ml Documented by: STROKE Vital Signs/Narrative: Vital Signs Temp Pulse Resp BP Pulse Ox 12/19/18 09:15 97.9 F 64 18 143/74 H 93 12/19/18 09:12 64 12/19/18 07:45 61 12/19/18 07:25 62 20 H Medical Necessity - Tobacco Use Smoking Status: Former smoker Tobacco Use: Non-smoker Assessment/Plan All Active Problems (Last Reviewed 12/13/18 @ 21:23 by Farhat Strange MD) Hypertensive urgency (Acute) Open wound of scalp with complication (Acute) Hematoma of scalp (Acute) Lymphedema of both lower extremities (Acute) Acute diastolic (congestive) heart failure (Acute) Acute sepsis (Acute) Allergic dermatitis (Acute) Angioedema (Acute) Adverse drug effect (Acute) Wound of left lower extremity (Acute) Cellulitis (Acute) Metabolic encephalopathy (Resolved) Ulcer of left lower extremity with fat layer exposed (Resolved) Cognitive impairment (Resolved) Open wound of left elbow (Resolved) Open wound of right elbow (Resolved) UTI (urinary tract infection) (Resolved) Wound of right foot (Resolved) 1. Allergic reaction and angioedema secondary to vancomycin/traumatic ulcer with hematoma with MRSA and MRSE -Angioedema resolved -ID consulted -On Zyvox and Flagyl, can continue a short course as an outpatient per ID 2. Hypertensive urgency/CAD status post CABG and stent/paroxysmal A. fib/peripheral vascular disease/mild chronic diastolic heart failure/HLD -Blood pressure has stabilized -Last echo in April 2018 with an EF of 65% and stage I diastolic dysfunction -Continue with amiodarone, Norvasc, metoprolol, Lasix -Creatinine was 1.29 yesterday which is actually lower than her normal baseline. -No plan for the OR currently, will continue with Xarelto on discharge 3. GERD -Stable -Continue with PPI 4. Anxiety/depression/dementia -Stable -Continue with donepezil, Cymbalta, will cut the dose of Cymbalta in half to avoid serotonin syndrome with Zyvox -When she completes the Zyvox she can resume her full dose Cymbalta DVT: Xarelto Code Visit Inpatient E&M: [id number] [facility] Hosp L2
--- NOTE | 2018-12-19 12:54 | PHA.DC.MC ---
Pharmacy Service has performed discharge medication reconciliation and counseling for this patient. 1. LINEZOLID 600MG PO BID X 5 DOSES 2. METRONIDAZOLE 500MG PO TID X 9 DOSES 3. OXYCODONE/ACETAMINOPHEN 5/325MG PO TID PRN PAIN X 7 DAYS 4. HYDRALAZINE 50MG PO TID 5. ALSO DISCUSSED S/S OF SEROTONIN SYNDROME, 6. PER DR. ALFONSO, PT SHOULD TAKE 2 OF HER AMLODIPINE 2.5MG TABLETS TO EQUAL 5MG DAILY UNTIL SHE CAN BE SEEN BY HER PCP. SHE CAN ALSO TAKE THE FULL DOSE OF CYMBALTA The patient's discharge medication list was reviewed for discrepancies and discrepancies were resolved. Home Medications Amiodarone HCl 200 mg PO DAILY 04/09/18 Duloxetine HCl 60 mg PO DAILY 04/09/18 Magnesium Oxide [Mag-Ox 400] 400 mg PO BID 04/09/18 Metoprolol Tartrate [Lopressor (beta man)] 50 mg PO BID 04/09/18 Pantoprazole Sodium [Protonix] 40 mg PO DAILY 04/09/18 Rivaroxaban [Xarelto] 15 mg PO DAILY 04/09/18 Docusate Sodium 100 mg PO DAILY PRN PRN 05/22/18 Ergocalciferol (Vitamin D2) [Vitamin D2] 50,000 unit PO DAILY 05/22/18 Donepezil HCl 5 mg PO DAILY 08/19/18 Potassium Chloride [Klor-Con M20] 20 meq PO BID 08/19/18 Furosemide [Lasix] 60 mg PO DAILY #1 tab 08/23/18 ferrous sulfate 325 mg (65 mg iron) tablet,delayed release 325 mg PO DAILY 09/25/18 gabapentin 300 mg capsule 600 mg PO BID cap 09/25/18 budesonide 180 mcg/actuation breath activated powder inhaler 1 inh INHALATION BID inhaler 11/18/18 Hydrocortisone [Anusol Hc] 25 mg RECTAL BID PRN 12/11/18 Albuterol Sulfate [Albuterol Sulfate Hfa] 8.5 gm IH PRN PRN 12/13/18 Amlodipine [Norvasc] 2.5 mg PO DAILY 12/13/18 Phenazopyridine HCl [Pyridium] 200 mg PO TID 12/13/18 Linezolid [Zyvox] 600 mg PO Q12 #5 tab 12/18/18 metroNIDAZOLE [Flagyl] 500 mg PO TID #9 tab 12/18/18 Amlodipine [Norvasc] 5 mg PO DAILY tab 12/19/18 Docusate Sodium [Colace] 100 mg PO BID cap 12/19/18 Furosemide [Lasix] 60 mg PO DAILY tab 12/19/18 Oxycodone HCl/Acetaminophen [Percocet 5/325] 1 tab PO TID PRN PRN 7 Days #20 tab 12/19/18 Rivaroxaban [Xarelto] 15 mg PO DAILY@1700 tab 12/19/18 Silver/Hydrocolloid Dressing [Aquacel-Ag W-Hydrofiber Dress] 1 ea TP QODAY 30 Days #5 bandage 12/19/18 hydrALAZINE [Apresoline] 50 mg GT TID #90 tab 12/19/18 proMETHazine tablet [Phenergan tablet] 25 mg PO Q4H PRN PRN tab 12/19/18 The patient was counseled on the following discharge medications and changes in medications for homegoing were reviewed. The Reason for Use, instructions for use, and potential side effects were reviewed for all new medications. The patient's questions regarding all of their medications were answered. The patient was able to verbally demonstrate an understanding of their discharge medications.
--- NOTE | 2018-12-19 13:51 | PCA ---
Cyrus at Dr. Gomes office called and stated that per the patient does not need to follow-up with him just to follow-up with Dr. Wayne at the wound clinic. Went in to patients room and notified her of this.
--- NOTE | 2018-12-20 13:01 | CASEMGMT ---
INÉS GLEASON Discharge Follow-Up Phone Call. Lace: 10 Strata: 3 Discharge Date: 12/19/18 Adm Dx: Infected hematoma, scalp wound, hypertension Call to pt to inquire about how she has been doing since being discharged from the hospital. Pt states she has been doing good. She denies having any questions re: discharge instructions or medications or follow-up appts. She states that [facility] nurse is scheduled to come to see her today between 2:30 and 3 PM. She states she her sister is there and is taking good care of me. She denies having any needs or concerns at this time. Jethro GOMEZ RN CM
== END 2018-12-19 14:06 | disposition home health service (06) | DRG 605 ==
LOC: SDC 13:41 → PCU 12-14 09:33 → ICU 12-14 15:31 → PCU 12-15 11:00
PROVIDERS: Anesthesiology; Internal Medicine; Admitting Provider Surgery; Family Provider Family Medicine Geriatric Medicine; PCP Family Medicine Geriatric Medicine; Referring Provider Surgery; Visit Provider Family Medicine
DX: S00.03XA Contusion of scalp, initial encounter (principal); I50.32 Chronic diastolic (congestive) heart failure; Z16.39 Resistance to other specified antimicrobial drug; I16.0 Hypertensive urgency; I87.2 Venous insufficiency (chronic) (peripheral); I25.10 Atherosclerotic heart disease of native coronary artery without angina pectoris; E78.5 Hyperlipidemia, unspecified; D50.9 Iron deficiency anemia, unspecified; T78.3XXA Angioneurotic edema, initial encounter; T36.8X5A Adverse effect of other systemic antibiotics, initial encounter; I11.0 Hypertensive heart disease with heart failure; E11.40 Type 2 diabetes mellitus with diabetic neuropathy, unspecified; Z53.09 Procedure and treatment not carried out because of other contraindication; I48.0 Paroxysmal atrial fibrillation; W10.2XXA Fall (on)(from) incline, initial encounter; Y93.01 Activity, walking, marching and hiking; Y92.019 Unspecified place in single-family (private) house as the place of occurrence of the external cause; W22.09XA Striking against other stationary object, initial encounter; G35 Multiple sclerosis; B95.2 Enterococcus as the cause of diseases classified elsewhere; B95.7 Other staphylococcus as the cause of diseases classified elsewhere; B96.89 Other specified bacterial agents as the cause of diseases classified elsewhere; Z79.01 Long term (current) use of anticoagulants; K21.9 Gastro-esophageal reflux disease without esophagitis; Z95.1 Presence of aortocoronary bypass graft; Z95.5 Presence of coronary angioplasty implant and graft; Z87.891 Personal history of nicotine dependence
CPT/HCPCS: 36415; 71045; 80048; 80053; 82962; 83036; 83735; 84134; 84484; 85025; 85027; 85610; 85652; 85730; 86140; 93005; 94640; 97110; 97116; 97162; 97166; 97530; J2020; J7030; J7050; J7120; A4216; J1940; J2405; J3490

== ENCOUNTER 2018-12-26 09:58 | Outpatient (RCR) | payer MEDICARE, SELFPAY ==
[2018-12-06 00:34] VITALS: BP 149/79; PULSE 68; RESP 16; TEMP 37; BMI 40.2
[2018-12-13 13:45] VITALS: BMI 39.0
== END 2019-01-04 23:59 ==
LOC: WC 09:58
PROVIDERS: Family Provider Family Medicine Geriatric Medicine; PCP Family Medicine Geriatric Medicine; Referring Provider Podiatrist; Visit Provider Internal Medicine
DX: Z09 Encounter for follow-up examination after completed treatment for conditions other than malignant neoplasm (principal)

== ENCOUNTER → 2018-12-27 12:55 | Outpatient (CLI) | payer MEDICARE, SELFPAY ==
[2018-11-18 16:56] VITALS: BMI 39.4
[2018-12-13 13:45] VITALS: BMI 39.0
--- NOTE | 2018-12-30 07:42 | PFT ---
INTRODUCTION: The patient is a 73-year-old female that presents for pulmonary function studies secondary to a diagnosis of high risk medication use. Respiratory therapy reports good patient effort. Bronchodilators were used during testing. INTERPRETATION: Forced expiration spirometry demonstrates no evidence of a large airways obstructive ventilatory defect. There was no significant response to aerosolized bronchodilators. Spirograms are of good quality and plateau normally. Body plethysmography was performed and reveals a decrease TLC to 3.12 L, 78% of predicted, indicative of a mild restrictive ventilatory impairment. The remainder of the lung volumes are symmetrically reduced. Diffusing capacity by single breath CO is moderately reduced at 57% of predicted. IMPRESSION: Mild restrictive ventilatory impairment with associated moderate reduction in diffusing capacity.
== END ==
PROVIDERS: Family Provider Family Medicine Geriatric Medicine; PCP Family Medicine Geriatric Medicine; Referring Provider Internal Medicine Cardiovascular Disease; Visit Provider Internal Medicine Cardiovascular Disease
DX: Z79.899 Other long term (current) drug therapy (principal)
CPT/HCPCS: 94060; 94726; 94729

== ENCOUNTER 2018-12-29 02:00 | Emergency (ER) | payer MEDICARE, SELFPAY ==
[2018-12-13 13:45] VITALS: BMI 39.0
[2018-12-29 02:02] VITALS: BP 175/66; PULSE 72; RESP 18; TEMP 36.8; O2SAT 96; BMI 38.0
[2018-12-29 02:46] LABS: Color, Urine Yellow (Yellow); Glucose, Dipstick Normal (Normal); Ketone-Dipstick Negative (Negative); Leukocyte Esterase-Dipstick 100 /ul (Negative); Mucous, Urine 0 SEEN /hpf (<or=2+); Nitrite-Dipstick Negative (Negative); Occult Blood-Urine 10 /ul (Negative); Protein-Dipstick Negative (Negative); Specific Gravity, Urine 1.015 (1.002-1.030); Squamous Epithelial Cells - UA 0 SEEN /hpf (5-10); Urine Bilirubin Dipstick Negative (Negative); Urine Clarity Sl. Cloudy (Clear); Urine Urobilinogen Normal (Normal)
--- NOTE | 2018-12-29 02:57 | ED.DCSUM_ITS ---
History of Present Illness Chief Complaint: Fall Narrative: Patient is a 73-year-old female who presents with a right leg wound. Patient had a mechanical fall. She was getting out of the shower. She previously had a sliding glass door but the glass have been removed. She fell and her right leg landed on the metal strip. She sustained a large laceration. She is on Xarelto. Head injury. No chest pain shortness of breath abdominal pain or back pain. No lightheadedness or dizziness. Past Medical History - Allergies and Home Meds Allergies/Adverse Reactions: Allergies codeine Allergy (Unknown, Verified 12/29/18 02:01) Hives cefazolin Allergy (Verified 12/29/18 02:01) Rash ciprofloxacin [From Cipro] Allergy (Verified 12/29/18 02:01) Hives ciprofloxacin HCl [From Cipro] Allergy (Verified 12/29/18 02:01) Hives Latex, Natural Rubber Allergy (Verified 12/29/18 02:01) Rash Penicillins [PCN] Allergy (Verified 12/29/18 02:01) Hives vancomycin Allergy (Verified 12/29/18 02:01) Angioedema adhesive tape Adverse Reaction (Verified 12/29/18 02:01) Rash Primary Care Physician: Octaviano Franco Chi, MD [Primary Care Provider] - Past Medical History: - - Hypertension, atrial fibrillation Surgical History: angioplasty, appendectomy, cholecystectomy, coronary bypass surgery, hysterectomy, tonsillectomy, - - R ankle surgery with hardware. placement of stents (cardiac or lower extremity. patient is unsure). excision upper lip carcinoma. Incision and drainage and excisional debridement infected traumatic open hematoma wound right anterior leg (90 cm2) and incision and drainage and excisional debridement infected traumatic open hematoma wound left anterior leg (72 cm2) - 12/29/14. Smoking Status: Former smoker - Family History Maternal Family History: Family History (Last Reviewed 12/13/18 @ 21:23 by Farhat Strange MD) Father Heart disease Mother Hypertension Cancer Brother Diabetes Hypertension Family History: Reports: Heart Disease, Hypertension Paternal Family History: Family History (Last Reviewed 12/13/18 @ 21:23 by Farhat Strange MD) Father Heart disease Mother Hypertension Cancer Brother Diabetes Hypertension Family History: Reports: Heart Disease, Hypertension, - - skin cancer. Sibling Family History: Family History (Last Reviewed 12/13/18 @ 21:23 by Farhat Strange MD) Father Heart disease Mother Hypertension Cancer Brother Diabetes Hypertension Family History: Reports: Diabetes Review of Systems All systems negative except as indicated General: Denies: Fever Eyes: Denies: Visual changes - bilaterally ENT: Denies: Bilateral ear pain Cardiovascular: Denies: Chest pain Respiratory: Denies: Dyspnea Gastrointestinal: Denies: Abdominal pain, Nausea, Vomiting Genitourinary: Reports: Frequency. Denies: Dysuria Musculoskeletal: Reports: Extremity Pain. Denies: Myalgias, Arthralgias Skin: Denies: Rash Neurological: Denies: Headache Physical Exam Vital Signs/Narrative: Vital Signs Temp Pulse Resp BP Pulse Ox 12/29/18 02:02 98.2 F 72 18 175/66 H 96 Inital Vital Signs reviewed: Yes General: Well nourished, Well developed Head: Normocephalic Eyes: EOMI ENT: Moist mucous membranes Neck: Supple Cardiovascular: Regular rate, Regular rhythm Respiratory: No distress, CTA bilaterally Abdomen: Soft, Nontender Back: Nontender Extremities: - - Patient has a large wound to the right anterior lower leg measuring roughly 12 x 5 cm. There is associated skin tear and macerated tissue, this is not amenable to simple sutured wound closure, above this there is a 3 cm skin tear, on the left posterior leg there are 2 separate skin tears measuring 4 cm and a 2 cm Skin: Normal color Neurological: Alert Psychological: Normal affect Diagnostic/Tx/Re-eval Impressions Tibia/Fibula X-Ray 12/29/18 03:05 IMPRESSION: Postoperative changes of the distal fibula along with underlying osteopenia. No acute fracture. Soft tissue swelling with laceration along the lateral calf. Electronically Signed: Harriet Douglas MD at 3:34 EST , Service support , 12/29/18 03:05 Xray Tibia [Tibia & Fibula 2 Views] [RAD] Stat Laboratory Results 12/29/18 12/29/18 12/29/18 02:42 03:53 03:53 WBC 14.7 H RBC 3.74 L Hgb 11.1 L Hct 34.9 L MCV 93.3 MCH 29.7 MCHC 31.8 L RDW Std Deviation 49.2 H RDW Coeff of Carissa 14.9 H Plt Count 208 MPV 10.3 Immature Gran % (Auto) 1.400 H Neut % (Auto) 70.6 H Lymph % (Auto) 17.7 L [place] % (Auto) 9.2 Eos % (Auto) 0.8 Baso % (Auto) 0.3 Absolute Neuts (auto) 10.4 H Absolute Lymphs (auto) 2.61 Nucleated RBC % 0 PT 23.8 H INR 2.1 Urine Color Yellow Urine Clarity Sl. Cloudy Urine pH 5.0 Ur Specific [place] 1.015 Urine Protein Negative Urine Glucose (UA) Normal Urine Ketones Negative Urine Occult Blood 10 H Urine Nitrite Negative Urine Bilirubin Negative Urine Urobilinogen Normal Ur Leukocyte Esterase 100 H Urine RBC 0-5 SEEN Urine WBC 0-5 SEEN Ur Squamous Epith Cells 0 SEEN Urine Bacteria RARE Urine Mucus 0 SEEN - Medical Decision Making Patient does have a complex wound. This is not amenable to wound closure by myself in the emergency department. I talked to plastic surgery, Dr. Strange, who is unavailable until Sunday. I also spoke to general surgery who gave recommendations for wound dressing and can see the patient on Sunday or Sunday. I cleanse the wound with sterile saline and a nonadherent dressing and Kerlix was applied. She saturated the dressing and continues to ooze. I believe this will need more urgent definitive management then greater than 24 hours from now. I discussed my concerns with the patient. She requested transfer to [facility]. Patient discussed with Dr. Sharpe who accepted. ED Disposition - Plan for ED Patient: Disposition: [facility] Diagnosis: Open wound of right lower leg Referrals: Octaviano Franco Chi, MD [Primary Care Provider] -
[2018-12-29 03:00] LABS: Bacteria RARE /hpf (None Seen); Red Blood Cells-Urine 0-5 SEEN /hpf (0-5); White Blood Cells 0-5 SEEN /hpf (0-5)
--- NOTE | 2018-12-29 03:05 | RAD_ITS ---
STUDY: X-RAY - RIGHT TIBIA AND FIBULA REASON FOR EXAM: Female, 73 years old. Status post fall, large laceration to the lower leg. TECHNIQUE: 2 view(s) of the tibia and fibula were obtained. COMPARISON: None. FINDINGS: There is demineralization of the tibia. There is demineralization of the fibula. There are postoperative changes with fixation plates with the distal fibula and several screws. There is degenerative arthritis at the level of the ankle. No distinct fracture. There is diffuse soft tissue swelling more so through the distal calf and ankle. There is soft tissue interruption along the lateral aspect of the distal calf consistent with laceration. This is suggested to be approximately 7 cm in length. The depth is difficult to accurately assess. RAD/Tibia & Fibula 2 Views IMPRESSION: Postoperative changes of the distal fibula along with underlying osteopenia. No acute fracture. Soft tissue swelling with laceration along the lateral calf. Electronically Signed: Harriet Douglas MD at 3:34 EST , Service support ,
--- NOTE | 2018-12-29 03:15 | ED.RN ---
PATIENT IS ASKING TO VOID EVERY 15 MINUTES. DO TO THE TRAUMA OF HER RIGHT LEG AND HER UNABLE TO TURN OR GET UP I APPLIED A PURE WICK COLLECTION DEVICE TO CATCH THE URINE. PATIENT WAS VERY HAPPY ABOUT THIS.
[2018-12-29 03:58] LABS: Absolute Lymphocyte Count 2.61 X10^3/uL (0.83-4.51); Absolute Neutrophil Count 10.4 X10^3/uL (2.0-7.7); Basophil# 0.04 X10^3/uL; Basophil% 0.3 % (0-1); Eosinophil# 0.12 X10^3/uL; Eosinophils% 0.8 % (0-5); Hematocrit 34.9 % (37-47); Hemoglobin 11.1 g/dL (12.0-15.0); Lymphocyte # 2.61 X10^3/ul (4.0); Lymphocyte % 17.7 % (19-41); Mean Corp Hgb Conc 31.8 g/dL (32-36); Mean Corpuscular Hgb 29.7 pg (27.0-32.0); Mean Corpuscular Volume 93.3 fL (81-99); Mean Platelet Vol. 10.3 fl (6.2-12.0); Monocyte# 1.35 X10^3/uL; Monocyte% 9.2 % (0-10); NRBC Flagged by Analyzer 0 % (0-5); Neutrophil % 70.6 % (47-70); Platelet Count 208 K/mm3 (150-450); RBC Distribution Width CV 14.9 % (11.6-14.6); RBC Distribution Width SD 49.2 fl (35.1-43.9); Red Blood Count 3.74 M/mm3 (4.2-5.4); White Blood Count 14.7 K/mm3 (4.4-11.0)
[2018-12-29 04:07] LABS: International Normalized Ratio 2.1; Prothrombin Time (Protime)PT. 23.8 SECONDS (11.7-14.9)
[2018-12-29 04:13] LABS: Anion Gap 8 (5-15); BUN 22 mg/dL (7-18); BUN/Creat Ratio 15.9 RATIO (10-20); Calcium,Total 8.8 mg/dL (8.5-10.1); Chloride 110 mmol/L (98-107); Creatinine, Serum 1.38 mg/dL (0.55-1.02); EST Glomerular Filtration Rate 40 mL/min (>60); Est Glom Filt Rate - Afr Amer 48 mL/min (>60); Estimated Creatinine Clearance 25.69 ml/min; Glucose 169 mg/dL (74-106); Potassium 3.7 mmol/L (3.5-5.1); Sodium Level 145 mmol/L (136-145)
--- NOTE | 2018-12-29 04:45 | ED.RN ---
PATIENT'S LINEN'S WERE CHANGED AND HER RIGHT [place] LACERATION DRESSING WAS CHANGED BECAUSE IT HAD BLED THROUGH. A PURE WICK EXTERNAL URINATION DEVICE THAT THIS NURSE PLACED EARLIER WAS REPOSITIONED AND FLOWING FREELY. [facility] IS HERE TO TAKE HER TO [facility]. THE PARAMEDICS AGREED TO LEAVE THE COLLECTION DEVICE IN PLACE AND THEY WOULD HOOK IT UP TO THEIR SUCTION IN THE [place]. HER ANTIBIOTIC WAS DONE SO I SALINE LOCKED HER LEFT FOREARM IV PRIOR TO TRANSFER.
[2018-12-29 04:47] VITALS: BP 130/62; PULSE 81; RESP 18; O2SAT 97
[2018-12-29 05:17] VITALS: BP 130/62; PULSE 81; RESP 18; O2SAT 97
--- NOTE | 2018-12-29 05:18 | ED.RN ---
BISHOP VIZCARRA (PATIENT'S DAUGHTER IN IN LAW WAS CALLED BY THIS NURSE AND TOLD THAT HER MOTHER IN LAW WAS TAK[facility]. REPORT WAS ALSO CALLED TO [facility] TO VANES[facility].
== END 2018-12-29 05:05 | disposition short-term general hospital (02) ==
PROVIDERS: Emergency Provider Emergency Medicine; Family Provider Family Medicine Geriatric Medicine; PCP Family Medicine Geriatric Medicine
DX: S81.812A Laceration without foreign body, left lower leg, initial encounter (principal); S81.811A Laceration without foreign body, right lower leg, initial encounter; W18.2XXA Fall in (into) shower or empty bathtub, initial encounter; Y93.89 Activity, other specified; Y92.9 Unspecified place or not applicable; Z87.891 Personal history of nicotine dependence; Z79.899 Other long term (current) drug therapy; I10 Essential (primary) hypertension; I48.91 Unspecified atrial fibrillation; Z79.01 Long term (current) use of anticoagulants
CPT/HCPCS: 73590; 80048; 81001; 85025; 85610; 96365; 99285; J7050; A4216

== ENCOUNTER 2019-01-04 12:03 | Inpatient (IN) | payer MEDICARE, SELFPAY ==
[2019-01-04] VITALS (14 sets, daily range): BP systolic 112–157; BP diastolic 32–98; PULSE 69–84; RESP 16–21; TEMP 36.7–37.3; O2SAT 90–99; BMI 40.4; BMI 39.7
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
[2019-01-04 13:37] LABS: Absolute Lymphocyte Count 1.54 X10^3/uL (0.83-4.51); Absolute Neutrophil Count 8.3 X10^3/uL (2.0-7.7); Basophil# 0.03 X10^3/uL; Basophil% 0.3 % (0-1); Eosinophil# 0.12 X10^3/uL; Eosinophils% 1.1 % (0-5); Hematocrit 26.4 % (37-47); Hemoglobin 7.8 g/dL (12.0-15.0); Lymphocyte # 1.54 X10^3/ul (4.0); Lymphocyte % 13.7 % (19-41); Mean Corp Hgb Conc 29.5 g/dL (32-36); Mean Corpuscular Hgb 29.1 pg (27.0-32.0); Mean Corpuscular Volume 98.5 fL (81-99); Mean Platelet Vol. 10.1 fl (6.2-12.0); Monocyte# 1.13 X10^3/uL; Monocyte% 10.1 % (0-10); NRBC Flagged by Analyzer 0.5 % (0-5); Neutrophil # 8.26 X10^3/uL (2.7-7.7); Neutrophil % 73.4 % (47-70); Platelet Count 312 K/mm3 (150-450); RBC Distribution Width CV 16.7 % (11.6-14.6); RBC Distribution Width SD 57.4 fl (35.1-43.9); Red Blood Count 2.68 M/mm3 (4.2-5.4); White Blood Count 11.2 K/mm3 (4.4-11.0)
[2019-01-04] MEDS: Ondansetron 4 MG/2 ML Vial IV (13:40)
[2019-01-04] MEDS: Morphine 4 MG/ML Syringe IV ×2 (13:40→15:50)
[2019-01-04 13:52] LABS: Anion Gap 6 (5-15); BUN 16 mg/dL (7-18); BUN/Creat Ratio 13.7 RATIO (10-20); Calcium,Total 8.7 mg/dL (8.5-10.1); Chloride 109 mmol/L (98-107); Creatinine, Serum 1.17 mg/dL (0.55-1.02); EST Glomerular Filtration Rate 48 mL/min (>60); Est Glom Filt Rate - Afr Amer 58 mL/min (>60); Glucose 139 mg/dL (74-106); Potassium 4.9 mmol/L (3.5-5.1); Sodium Level 144 mmol/L (136-145)
--- NOTE | 2019-01-04 13:59 | ED.RN ---
SPOKE TO [facility] IN PHARMACY REGARDING CLEOCIN, 44 MINUTES SINCE MED WAS ORDERED.
--- NOTE | 2019-01-04 16:02 | PCM.HP.STD ---
Problem List (1) Essential hypertension Status: Chronic (2) Diastolic CHF Status: Chronic (3) Iron deficiency anemia Status: Chronic Comment: etiology unknown (4) PVD (peripheral vascular disease) Status: Chronic (5) Presence of stent in coronary artery Status: Chronic Comment: PTCA/stent to CX; PTCA/Stent PTCA/stent to prox RCA 05/06; PTCA/LILY in mid to distal RCA 08/29/12 (6) Atherosclerotic heart disease of [place] coronary artery without angina pectoris Status: Chronic Qualifiers: Comment: PTCA/stent to CX; PTCA/Stent PTCA/stent to prox RCA 05/06; PTCA/LILY in mid to distal RCA 08/29/12; CABG x2 ARREGUIN tp LAD and SVG to OM2 01/02/11 (7) S/P CABG (coronary artery bypass graft) Status: Chronic Comment: CABG x2 ARREGUIN tp LAD and SVG to OM2 01/02/11 (8) Paroxysmal atrial fibrillation Status: Chronic (9) Hyperlipidemia Status: Chronic Qualifiers: History of Present Illness Date of Admission: 01/04/19 Chief Complaint: Right leg wound, increasing redness of both legs, recent fall. The patient is a 73 year old F patient with multiple medical comorbidities as mentioned above was brought to the emergency room today based on her son request for increasing redness and swelling of both lower extremities, left leg wound in context of recent fall. The patient is a poor informant and was not able to provide consistent detailed history. Patient's sister and [id number] was at the bedside and they provided some information. Patient had a mechanical fall around 1 week ago, was taken to [facility] where she was admitted and she was discharged few days ago. Patient's family noted that her leg wound is getting worse, more red, has been having some bleeding and may be infected and they brought her to the emergency department for evaluation. Patient reported mild bilateral leg pain and she was not able to provide any more details about this pain. She denies fever or chills. She had a history of CAD status post CABG and stents and she has been on beta-blockers and Xarelto. She has history of paroxysmal atrial fibrillation and it has been under control with amiodarone and metoprolol for rate control and she has been on Xarelto for anticoagulation. She has history of chronic bilateral leg edema with venous insufficiency as well as chronic bilateral leg wounds. She has history of hypertension which seemed to be under control with beta-blockers. She was discharged from our hospital on December 19, 2018 after admission for nonhealing traumatic hematoma of the scalp with extension to the occipital region after mechanical fall as well as acute head injury. In the emergency department, her vital signs were stable. Her routine blood work was remarkable for mild leukocytosis, hemoglobin 7.8 g/dL, otherwise unremarkable. She is being admitted for right lower leg cellulitis/infected hematoma, left leg cellulitis as well as acute on chronic anemia. Past Medical History Past Medical History (Chronic Problems): Chronic Problems (Last Updated 01/04/19 @ 17:12 by Kary Monk MD) Bilateral lower extremity edema (Chronic) Open wound of right knee (Chronic) Traumatic,penetratiung with fat layer exposed. Essential hypertension (Chronic) Type 2 diabetes mellitus (Chronic) Venous insufficiency of both lower extremities (Chronic) Diastolic CHF (Chronic) Iron deficiency anemia (Chronic) etiology unknown Ulcer of right lower extremity with fat layer exposed (Chronic) Ulcer of right foot with fat layer exposed (Chronic) Ulcer of left lower extremity with fat layer exposed (Chronic) PVD (peripheral vascular disease) (Chronic) Presence of stent in coronary artery (Chronic ~08/29/12) PTCA/stent to CX; PTCA/Stent PTCA/stent to prox RCA 05/06; PTCA/LILY in mid to distal RCA 08/29/12 Atherosclerotic heart disease of [place] coronary artery without angina pectoris (Chronic) PTCA/stent to CX; PTCA/Stent PTCA/stent to prox RCA 05/06; PTCA/LILY in mid to distal RCA 08/29/12; CABG x2 ARREGUIN tp LAD and SVG to OM2 01/02/11 S/P CABG (coronary artery bypass graft) (Chronic ~01/02/11) CABG x2 ARREGUIN tp LAD and SVG to OM2 01/02/11 Paroxysmal atrial fibrillation (Chronic) Hyperlipidemia (Chronic) Medical History: Medical History (Last Updated 01/04/19 @ 17:12 by Kary Monk MD) Essential hypertension (Chronic) I10 Type 2 diabetes mellitus (Chronic) E11.9 Diastolic CHF (Chronic) I50.30 Iron deficiency anemia (Chronic) D50.9 etiology unknown Ulcer of right lower extremity with fat layer exposed (Chronic) L97.912 Ulcer of right foot with fat layer exposed (Chronic) L97.512 Ulcer of left lower extremity with fat layer exposed (Chronic) L97.922 PVD (peripheral vascular disease) (Chronic) I73.9 Presence of stent in coronary artery (Chronic) Onset Date: ~08/29/12 Z95.5 PTCA/stent to CX; PTCA/Stent PTCA/stent to prox RCA 05/06; PTCA/LILY in mid to distal RCA 08/29/12 Atherosclerotic heart disease of [place] coronary artery without angina pectoris (Chronic) I25.10 PTCA/stent to CX; PTCA/Stent PTCA/stent to prox RCA 05/06; PTCA/LILY in mid to distal RCA 08/29/12; CABG x2 ARREGUIN tp LAD and SVG to OM2 01/02/11 Paroxysmal atrial fibrillation (Chronic) I48.0 Hyperlipidemia (Chronic) E78.5 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 Diabetic ulcer of both lower extremities E11.622, L97.919, L97.929 History of DVT (deep vein thrombosis) Z86.718 Trigeminal neuralgia G50.0 Multiple sclerosis G35 LAURITA (obstructive sleep apnea) G47.33 Peripheral vascular disease I73.9 Venous insufficiency of both lower extremities I87.2 Cognitive impairment (Inactive) R41.89 patient is confused at times Allergies codeine Allergy (Unknown, Verified 01/04/19 12:10) Hives cefazolin Allergy (Verified 01/04/19 12:10) Rash ciprofloxacin [From Cipro] Allergy (Verified 01/04/19 12:10) Hives ciprofloxacin HCl [From Cipro] Allergy (Verified 01/04/19 12:10) Hives Latex, Natural Rubber Allergy (Verified 01/04/19 12:10) Rash Penicillins [PCN] Allergy (Verified 01/04/19 12:10) Hives vancomycin Allergy (Verified 01/04/19 12:10) Angioedema adhesive tape Adverse Reaction (Verified 01/04/19 12:10) Rash Home Medications: Ambulatory Orders Medication Instructions Recorded Amiodarone HCl 200 mg PO DAILY 04/09/18 Duloxetine HCl 60 mg PO DAILY 04/09/18 Magnesium Oxide [Mag-Ox 400] 400 mg PO BID 04/09/18 Metoprolol Tartrate [Lopressor 50 mg PO BID 04/09/18 (beta man)] Pantoprazole Sodium [Protonix] 40 mg PO DAILY 04/09/18 Rivaroxaban [Xarelto] 15 mg PO DAILY 04/09/18 Docusate Sodium 100 mg PO DAILY PRN PRN 05/22/18 Ergocalciferol (Vitamin D2) 50,000 unit PO QWEEK 05/22/18 [Vitamin D2] Donepezil HCl 5 mg PO DAILY 08/19/18 Potassium Chloride [Klor-Con M20] 20 meq PO BID 08/19/18 Furosemide [Lasix] 60 mg PO DAILY #1 tab 08/23/18 ferrous sulfate 325 mg (65 mg 325 mg PO DAILY 09/25/18 iron) tablet,delayed release gabapentin 300 mg capsule 600 mg PO BID cap 09/25/18 budesonide 180 mcg/actuation 1 inh INHALATION BID PRN inhaler 11/18/18 breath activated powder inhaler Albuterol Sulfate [Albuterol 8.5 gm IH PRN PRN 12/13/18 Sulfate Hfa] Amlodipine [Norvasc] 2.5 mg PO DAILY 12/13/18 Silver/Hydrocolloid Dressing 1 ea TP QODAY 01/04/19 [Aquacel-Ag W-Hydrofiber Dress] hydrALAZINE [Apresoline] 50 mg GT TID 01/04/19 metroNIDAZOLE [Flagyl] 500 mg PO TID 01/04/19 Surgical History: Surgical History (Last Reviewed 12/13/18 @ 21:23 by Farhat Strange MD) S/P CABG (coronary artery bypass graft) (Chronic) Onset Date: ~01/02/11 Z95.1 CABG x2 ARREGUIN tp LAD and SVG to OM2 01/02/11 History of cataract surgery Z98.49 History of cholecystectomy Z98.890, Z90.49 History of hernia repair Z98.890, Z87.19 History of tonsillectomy and adenoidectomy Z98.890 History of total hysterectomy Z98.890, Z90.710 Postsurgical percutaneous transluminal coronary angioplasty (PTCA) status Z98.61 PTCA/stent to CX; PTCA/Stent PTCA/stent to prox RCA 05/06; PTCA/LILY in mid to distal RCA 08/29/12 Presence of coronary angioplasty implant and graft Onset Date: ~08/29/12 Z95.5 PTCA/stent to CX; PTCA/Stent PTCA/stent to prox RCA 05/06; PTCA/LILY in mid to distal RCA 08/29/12 Surgical History: angioplasty, appendectomy, cholecystectomy, coronary bypass surgery, hysterectomy, tonsillectomy, - Psychiatric History: No 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 hx 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 Sibling Family History: Family History (Last Reviewed 12/13/18 @ 21:23 by Farhat Strange MD) Father Heart disease Mother Hypertension Cancer Brother Diabetes Hypertension History Items: Diabetes Review of Systems Constitutional: Denies: Anorexia, Chills, Fever, Weakness Eyes: Denies: Blurred vision, Double vision, Drainage, Redness HEENT: Denies: Difficulty Hearing, Ear Pain, Eye Pain, Nasal Congestion, Sore Throat Cardiovascular: Reports: Edema. Denies: Chest Pain, Claudication, Chest Tightness, Heaviness, Light Headedness, Palpitations, Paroxysmal Noc. Dyspnea, Syncope Respiratory: Denies: Cough, Pleuritic Pain, Shortness of Breath, Sputum production, Wheezing Gastrointestinal: Denies: Abdominal Pain, Constipation, Diarrhea, Nausea, Vomiting Genitourinary: Denies: Dysuria, Frequency, Hematuria Musculoskeletal: Reports: Leg Pain. Denies: Arm Pain, Back Pain Skin: Denies: Dryness, Rash Neurological: Denies: Balance problems, Double vision, Change in Speech, Slurred speech, Confusion, Focal weakness, Headaches, Incoordination Psychiatric: Denies: Anxiety, Depression Endocrine: Denies: Change in Body Habitus, Polydipsia, Polyuria VTE Information - Inpt Only VTE Present on Admission: No VTE Mechan Device Prophylaxis: None VTE Pharm Prophylaxis ordered?: No - Physical Exam Vitals/I&O's: Vital Signs Temp Pulse Resp BP Pulse Ox 98.1 F 70 18 112/98 H 93 01/04/19 14:15 01/04/19 15:48 01/04/19 15:48 01/04/19 15:48 01/04/19 15:48 Oxygen Delivery Method Room Air Weight: 207 lb 3.752 oz Body Mass Index (BMI) 40.4 Finger Stick Blood Glucose 187 Intake and Output for Last 24 Hours 01/02/19 01/03/19 01/04/19 23:59 23:59 23:59 Intake Total 106 / 106 Balance 106 / 106 General: Alert, Oriented x3, Cooperative, No apparent distress HEENT: Atraumatic, PERRLA, EOMI, Normocephalic Oral: Moist Mucosa, No Gingival or Mucosal Lesions/ Ulcerations Neck: Supple, No JVD, Negative Carotid Bruits, Trachea Midline, Thyroid Normal Size and Texture Lungs: Clear to auscultation, Normal air movement, No rhonchi, No wheeze, No rales, Diminished Cardiovascular: Normal S1, Normal S2, No murmurs, PMI Normal, Irregular Rate Abdomen: Bowel Sounds Present, Soft, Non Tender, Non-Distended, No Hepato-splenomegaly, Obese Extremities: No clubbing, No cyanosis, Edema, - - Right leg: Swelling and erythema extending from just below the right knee down to the right ankle. Area of subcutaneous hematoma on the posterior and lateral aspect of the right mid leg with open wound, surrounded by erythema and oozing of blood. Left leg: Mild diffuse erythema, small nonhealing wound on the upper one third of the posterior left leg. Skin: No rashes, Ulcer/ Wound Lymphatic: No Cervical, Supraclavicular, or Inguinal Adenopathy Neurological: Cranial nerves II-XII grossly intact, Motor Exam 5/5 strength throughout Psych/Mental Status: Normal Affect, Appropriate, Alert and oriented to time, place, person, mood and affect Laboratory Results 01/04/19 13:30: WBC 11.2 H, RBC 2.68 L, Hgb 7.8 L, Hct 26.4 L, MCV 98.5, MCH 29.1, MCHC 29.5 L, RDW Std Deviation 57.4 H, RDW Coeff of Carissa 16.7 H, Plt Count 312, MPV 10.1, Immature Gran % (Auto) 1.400 H, Neut % (Auto) 73.4 H, Lymph % (Auto) 13.7 L, [place] % (Auto) 10.1 H, Eos % (Auto) 1.1, Baso % (Auto) 0.3, Absolute Neuts (auto) 8.3 H, Absolute Lymphs (auto) 1.54, Nucleated RBC % 0.5 01/04/19 13:30: Sodium 144, Potassium 4.9, Chloride 109 H, Carbon Dioxide 29.0, Anion Gap 6, BUN 16, Creatinine 1.17 H, Estim Creat Clear Calc 30.30, Est GFR (MDRD) Af Amer 58 L, Est GFR (MDRD) Non-Af 48 L, BUN/Creatinine Ratio 13.7, Glucose 139 H, Calcium 8.7 Assessment/Plan This is a 73 years old female patient presented to the emergency room because of increasing bilateral leg erythema, swelling, wound on the right leg and she was found to have bilateral lower extremity cellulitis, right leg infected hematoma and acute on chronic anemia. #1 acute probably bacterial bilateral lower extremity cellulitis/infected right leg hematoma/nonhealing ulcer on the posterior left leg: In context of history of healed left foot wound, right leg ulcers, left leg ulcers and wound culture revealed pseudomonas aeruginosa and Enterococcus faecalis back in August,. At this time, no evidence of sepsis or severe sepsis. Patient does have mild leukocytosis, afebrile, no tachycardia. Has been on Xarelto and obviously, she has been bleeding from the right leg hematoma. Plan: Admit to telemetry floor, wound culture, MRSA wound screen by PCR, start IV meropenem and clindamycin, plastic surgery consult, infectious disease consult, repeat CBC and BMP tomorrow morning, IV fluids, Tylenol PRN, OxyIR PRN for pain, PT OT evaluation and treatment. #2 acute on chronic iron deficiency anemia: Patient reported melena. She does have a history of chronic iron deficiency anemia. Hemoglobin has been around 11 to 12 g/dL since April, but it was around 8 to 9 g/dL beginning of 2018. This is probably exacerbated by bleeding from the right leg hematoma as patient has been on Xarelto. Plan: Transfuse 1 unit of packed RBCs, check INR, hold Xarelto, stool for occult blood, continue iron supplement. #3 CAD status post CABG and stents: Stable, no complaints. Continue metoprolol, hydralazine. #4 paroxysmal atrial fibrillation: Rate is controlled, continue amiodarone and metoprolol for rate control. Hold Xarelto for now. #5 hypertension: Blood pressure stable, continue Norvasc, Lasix, hydralazine and metoprolol. #6 chronic diastolic CHF: Clinically stable, compensated. Continue Lasix and metoprolol as well as hydralazine. #7 chronic bilateral leg edema/venous insufficiency: Plan as above. #8 DVT prophylaxis: INR was 2.1 six days ago. Hold Xarelto for now, check INR. This note was generated with [employer] dictation software. It may contain incorrect words, spelling, and punctuation that were not noted in checking the note before signing. Code Visit Inpatient E&M: 21803 Init Hosp L3
[2019-01-04 18:20] LABS: International Normalized Ratio 1.1
[2019-01-04] MEDS: Budesonide Respules 0.5 MG/2 ML AMPUL.NEB. INHALATION (19:07)
[2019-01-04 19:17] LABS: M R Staph aureus DNA By PCR Negative (Negative); Probe Check PASS; Specimen Processing Control PASS; Staph aureus DNA By PCR NEGATIVE (Negative)
--- NOTE | 2019-01-04 21:21 | NURSING ---
GUDELIA KELSEY ATTEMPTED IV ACCESS X2, BARB Patel ATTEMPTED X1.
[2019-01-04] MEDS: hydrALAZINE 50 MG Tablet GT (21:56)
[2019-01-04] MEDS: Gabapentin 600 MG Tablet PO (21:56)
[2019-01-04] MEDS: Metoprolol Tartrate 50 MG Tablet PO (21:56)
[2019-01-04] MEDS: Donepezil HCl 5 MG Tablet PO (21:56)
[2019-01-04] MEDS: Magnesium Oxide 400 MG Tablet PO (21:56)
[2019-01-05] VITALS (16 sets, daily range): BP systolic 132–144; BP diastolic 49–63; PULSE 70–85; RESP 18–20; TEMP 37–37.3; O2SAT 83–97
[2019-01-05] MEDS: 0.9% Normal Saline 1,000 ML 75 ML IV (01:42)
[2019-01-05] MEDS: 0.9% Saline Lock 10 ML Syringe IV ×4 (01:43→23:17)
--- NOTE | 2019-01-05 02:49 | NURSING ---
PT HAD 22 IN L WRIST. TRIED MULTIPLE TIMES TO OBTAIN IV ACCESS AND FINALLY OBTAINED 22 IN RAC. L WRIST IV INFILTRATED. PRBC & MERREM FINISHED IN RAC. STARTED CLINDAMYCIN AND SITE INFILTRATED 20CC INTO THE INFUSION. INFUSION STOPPED. DR BURNETT NOTIFIED. ORDER OBTAINED FOR MIDLINE, PO CLINDAMYCIN X1 AND NS DC'D.
[2019-01-05] MEDS: Clindamycin HCl 150 MG Capsule 600 MG PO (03:00)
[2019-01-05 05:40] LABS: Absolute Lymphocyte Count 1.62 X10^3/uL (0.83-4.51); Absolute Neutrophil Count 7.4 X10^3/uL (2.0-7.7); Basophil# 0.03 X10^3/uL; Basophil% 0.3 % (0-1); Eosinophil# 0.25 X10^3/uL; Eosinophils% 2.3 % (0-5); Hematocrit 28.4 % (37-47); Hemoglobin 8.3 g/dL (12.0-15.0); Lymphocyte # 1.62 X10^3/ul (4.0); Lymphocyte % 15.2 % (19-41); Mean Corp Hgb Conc 29.2 g/dL (32-36); Mean Corpuscular Hgb 28.4 pg (27.0-32.0); Mean Corpuscular Volume 97.3 fL (81-99); Mean Platelet Vol. 10.3 fl (6.2-12.0); Monocyte# 1.24 X10^3/uL; Monocyte% 11.6 % (0-10); NRBC Flagged by Analyzer 0.4 % (0-5); Neutrophil # 7.44 X10^3/uL (2.7-7.7); Neutrophil % 69.7 % (47-70); Platelet Count 302 K/mm3 (150-450); RBC Distribution Width CV 17.4 % (11.6-14.6); RBC Distribution Width SD 58.6 fl (35.1-43.9); Red Blood Count 2.92 M/mm3 (4.2-5.4); White Blood Count 10.7 K/mm3 (4.4-11.0)
[2019-01-05 05:57] LABS: Anion Gap 4 (5-15); BUN 14 mg/dL (7-18); BUN/Creat Ratio 12.6 RATIO (10-20); Calcium,Total 8.2 mg/dL (8.5-10.1); Chloride 107 mmol/L (98-107); Creatinine, Serum 1.11 mg/dL (0.55-1.02); EST Glomerular Filtration Rate 51 mL/min (>60); Est Glom Filt Rate - Afr Amer 62 mL/min (>60); Estimated Creatinine Clearance 31.94 ml/min; Glucose 106 mg/dL (74-106); Potassium 4.3 mmol/L (3.5-5.1); Sodium Level 141 mmol/L (136-145)
[2019-01-05] MEDS: hydrALAZINE 50 MG Tablet GT ×3 (06:39→23:17)
[2019-01-05] MEDS: Budesonide Respules 0.5 MG/2 ML AMPUL.NEB. INHALATION ×2 (07:20→19:43)
--- NOTE | 2019-01-05 07:32 | PCM.PN.HOSP ---
Vitals/I&O's: Vital Signs Temp Pulse Resp BP Pulse Ox 98.7 F 70 18 144/63 H 95 01/05/19 04:41 01/05/19 06:39 01/05/19 04:41 01/05/19 04:41 01/05/19 04:41 Oxygen Flow Rate (L/min) 2 Oxygen Delivery Method Nasal Cannula Weight: 203 lb 7.787 oz Body Mass Index (BMI) 39.7 Finger Stick Blood Glucose 187 Intake and Output for Last 24 Hours 01/03/19 01/04/19 01/05/19 23:59 23:59 23:59 Intake Total 931.60 / 1431.60 538.98 / 538.98 Output Total 250 / 250 Balance 931.60 / 1431.60 288.98 / 288.98 Laboratory Results 01/04/19 13:30: WBC 11.2 H, RBC 2.68 L, Hgb 7.8 L, Hct 26.4 L, MCV 98.5, MCH 29.1, MCHC 29.5 L, RDW Std Deviation 57.4 H, RDW Coeff of Carissa 16.7 H, Plt Count 312, MPV 10.1, Immature Gran % (Auto) 1.400 H, Neut % (Auto) 73.4 H, Lymph % (Auto) 13.7 L, [place] % (Auto) 10.1 H, Eos % (Auto) 1.1, Baso % (Auto) 0.3, Absolute Neuts (auto) 8.3 H, Absolute Lymphs (auto) 1.54, Nucleated RBC % 0.5 01/04/19 13:30: Sodium 144, Potassium 4.9, Chloride 109 H, Carbon Dioxide 29.0, Anion Gap 6, BUN 16, Creatinine 1.17 H, Estim Creat Clear Calc 30.30, Est GFR (MDRD) Af Amer 58 L, Est GFR (MDRD) Non-Af 48 L, BUN/Creatinine Ratio 13.7, Glucose 139 H, Calcium 8.7 01/04/19 17:20: Blood Type A POSITIVE, Antibody Screen NEGATIVE, Crossmatch See Detail 01/04/19 17:45: S.aureus Protein A PCR NEGATIVE, MRSA (PCR) Negative 01/04/19 17:47: PT 14.0, INR 1.1 01/05/19 05:00: WBC 10.7, RBC 2.92 L, Hgb 8.3 L, Hct 28.4 L, MCV 97.3, MCH 28.4, MCHC 29.2 L, RDW Std Deviation 58.6 H, RDW Coeff of Carissa 17.4 H, Plt Count 302, MPV 10.3, Immature Gran % (Auto) 0.900, Neut % (Auto) 69.7, Lymph % (Auto) 15.2 L, [place] % (Auto) 11.6 H, Eos % (Auto) 2.3, Baso % (Auto) 0.3, Absolute Neuts (auto) 7.4, Absolute Lymphs (auto) 1.62, Nucleated RBC % 0.4 01/05/19 05:00: Sodium 141, Potassium 4.3, Chloride 107, Carbon Dioxide 30.0, Anion Gap 4 L, BUN 14, Creatinine 1.11 H, Estim Creat Clear Calc 31.94, Est GFR (MDRD) Af Amer 62, Est GFR (MDRD) Non-Af 51 L, BUN/Creatinine Ratio 12.6, Glucose 106, Calcium 8.2 L Current Medications Acetaminophen (Tylenol) 650 mg PO Q6H PRN PRN PRN Reason: Pain Score 1-3/Temp > 100.7 F Albuterol Sulfate (Ventolin Aerosols) 2.5 mg INHALATION Q4H PRN PRN PRN Reason: Shortness of breath, wheezing Amiodarone HCl (Cordarone) 200 mg PO DAILY [facility] Amlodipine Besylate (Norvasc) 2.5 mg PO DAILY [facility] Budesonide (Pulmicort Aerosol) 0.5 mg INHALATION Q12H.RT [facility] Last Admin: 01/05/19 07:20 Dose: 0.5 mg Documented by: Diphenhydramine HCl (Benadryl) 25 mg PO TID PRN PRN PRN Reason: Itching, hives Docusate Sodium (Colace) 100 mg PO DAILY PRN PRN PRN Reason: Constipation Donepezil HCl (Aricept) 5 mg PO QHS [facility] Last Admin: 01/04/19 21:56 Dose: 5 mg Documented by: Duloxetine HCl (Cymbalta) 60 mg PO DAILY [facility]ous [facility] ([facility]ous [facility]ate[facility] Furosemide (Lasix) 60 mg PO DAILY [facility] Gabapentin (Neurontin) 600 mg PO BIDCM [facility] Last Admin: 01/04/19 21:56 Dose: 600 mg Documented by: Hydralazine HCl (Apresoline) 50 mg GT TID [facility] Last Admin: 01/05/19 06:39 Dose: 50 mg Documented by: Meropenem 1 gm/ Sodium (Chloride) 120 mls @ 33 mls/hr IV Q12 [facility] Last Infusion: 01/05/19 01:42 Dose: Infused Documented by: Clindamycin Phosphate 600 mg/ (Dextrose) 54 mls @ 100 mls/hr IV Q8 [facility] Last Infusion: 01/05/19 01:55 Dose: 0 mls/hr Documented by: Sodium Chloride () 250 mls @ 15 mls/hr IV .[id number] PRN PRN Reason: Saline Flush Magnesium Oxide (Mag-Ox 400) 400 mg PO BID [facility] Last Admin: 01/04/19 21:56 Dose: 400 mg Documented by: Metoprolol Tartrate (Lopressor (Beta Tommy)) 50 mg PO BID [facility] Last Admin: 01/04/19 21:56 Dose: 50 mg Documented by: Ondansetron HCl (Zofran) 4 mg IV Q8H PRN PRN PRN Reason: NAUSEA/VOMITING Oxycodone HCl (Oxyir) 5 mg PO Q4H PRN PRN PRN Reason: Pain Score 4-5/10 Pantoprazole Sodium (Protonix) 40 mg PO DAILY [facility] Sodium Chloride () 10 - 40 ml IV UD PRN PRN Reason: SALINE FLUSH Last Admin: 01/05/19 01:43 Dose: 10 ml Documented by: STROKE Vital Signs/Narrative: Vital Signs Temp Pulse Resp BP Pulse Ox 01/05/19 06:39 70 01/05/19 04:41 98.7 F 73 18 144/63 H 95 01/05/19 03:59 72 Medical Necessity - Tobacco Use Smoking Status: Former smoker Assessment/Plan This is a 73 years old female patient presented to the emergency room because of increasing bilateral leg erythema, swelling, wound on the right leg and she was found to have bilateral lower extremity cellulitis, right leg infected hematoma and acute on chronic anemia. #1 acute probably bacterial bilateral lower extremity cellulitis/infected right leg hematoma/nonhealing ulcer on the posterior left leg: In context of history of healed left foot wound, right leg ulcers, left leg ulcers and wound culture revealed pseudomonas aeruginosa and Enterococcus faecalis back in August,. At this time, no evidence of sepsis or severe sepsis. Patient does have mild leukocytosis, afebrile, no tachycardia. Has been on Xarelto and obviously, she has been bleeding from the right leg hematoma. Plan: Admit to telemetry floor, wound culture, MRSA wound screen by PCR, start IV meropenem and clindamycin, plastic surgery consult, infectious disease consult, repeat CBC and BMP tomorrow morning, IV fluids, Tylenol PRN, OxyIR PRN for pain, PT OT evaluation and treatment. #2 acute on chronic iron deficiency anemia: Patient reported melena. She does have a history of chronic iron deficiency anemia. Hemoglobin has been around 11 to 12 g/dL since April, but it was around 8 to 9 g/dL beginning of 2018. This is probably exacerbated by bleeding from the right leg hematoma as patient has been on Xarelto. Plan: Transfuse 1 unit of packed RBCs, check INR, hold Xarelto, stool for occult blood, continue iron supplement. #3 CAD status post CABG and stents: Stable, no complaints. Continue metoprolol, hydralazine. #4 paroxysmal atrial fibrillation: Rate is controlled, continue amiodarone and metoprolol for rate control. Hold Xarelto for now. #5 hypertension: Blood pressure stable, continue Norvasc, Lasix, hydralazine and metoprolol. #6 chronic diastolic CHF: Clinically stable, compensated. Continue Lasix and metoprolol as well as hydralazine. #7 chronic bilateral leg edema/venous insufficiency: Plan as above. #8 DVT prophylaxis: INR was 2.1 six days ago. Hold Xarelto for now, check INR.
[2019-01-05 07:42] LABS: Mucous, Urine 0 SEEN /hpf (<or=2+); Red Blood Cells-Urine 0 SEEN /hpf (0-5); Squamous Epithelial Cells - UA 0 SEEN /hpf (5-10)
[2019-01-05 07:44] LABS: Color, Urine Yellow (Yellow); Glucose, Dipstick Normal (Normal); Ketone-Dipstick Negative (Negative); Leukocyte Esterase-Dipstick 500 /ul (Negative); Nitrite-Dipstick Negative (Negative); Occult Blood-Urine 25 /ul (Negative); Protein-Dipstick 30 mg/dl (Negative); Urine Bilirubin Dipstick Negative (Negative); Urine Clarity Cloudy (Clear); Urine Urobilinogen Normal (Normal)
[2019-01-05 08:00] LABS: Bacteria 2+ /hpf (None Seen); White Blood Cells >100 SEEN /hpf (0-5)
[2019-01-05 10:06] LABS: AST(SGOT) 14 U/L (15-37); Alanine Aminotransfer ALT/SGPT 16 U/L (13-56); Albumin, Serum 2.2 g/dL (3.2-5.0); Alkaline Phosphatase 64 U/L (45-117); Bilirubin, Direct 0.08 mg/dL (0.00-0.30); Protein, Total 5.2 g/dL (6.4-8.2)
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
--- NOTE | 2019-01-05 12:14 | NURSING ---
3CG confirms placement in SVC, however, patient is AFIB and that requires xray for proper confirmation; JAYESH RN
[2019-01-05] MEDS: Furosemide 40 MG Tablet 60 MG PO (13:01)
[2019-01-05] MEDS: Amiodarone 200 MG Tablet PO (13:02)
[2019-01-05] MEDS: amLODIPine 2.5 MG Tablet PO (13:02)
[2019-01-05] MEDS: Magnesium Oxide 400 MG Tablet PO ×2 (13:02→23:12)
[2019-01-05] MEDS: Pantoprazole Sodium 40 MG Tablet PO (13:03)
[2019-01-05] MEDS: Metoprolol Tartrate 50 MG Tablet PO ×2 (13:03→23:17)
[2019-01-05] MEDS: Ferrous Sulfate 325 MG Tablet PO (13:03)
[2019-01-05] MEDS: DULoxetine Hcl 60 MG Capsule PO (13:03)
[2019-01-05] MEDS: Gabapentin 300 MG Capsule PO (16:38)
--- NOTE | 2019-01-05 21:42 | CON.PCM_ITS ---
Reason for Consult Date of Consultation: 01/05/19 Reason for Consultation: Infected hematomas bilateral legs with overlying skin necrosis. REFERRING PHYSICIAN: Dr. Hubbard. NURSING UNIT MANAGER: Dr. Strange. History of Present Illness: The patient is a 73 year old F patient with a history of diabetes mellitus and atrial fibrillation on Xarelto was recently admitted to the hospital because of increasing redness, and pain, and swelling in her bilateral legs after sustaining a fall at home a week ago. Because she is on Xarelto, she developed hematomas and overlying skin compromise. She was recently discharged from [facility] on after initial treatment of her hematomas. Patient states no surgery was done. They dressed it and started her an antibiotics. She denies fever or chills. She has history of chronic bilateral leg edema with venous insufficiency as well as chronic bilateral leg wounds. She was discharged from our hospital on December 19, 2018 after admission for nonhealing traumatic hematoma of the scalp with extension to the occipital region after mechanical fall as well as acute head injury. At that time she was discharged on Zyvox and Flagyl for Enterococcus faecalis, MRSE, Corynebacterium amycolatum/xer, and Anaerobic cocci and had finished them when she fell again at home. Upon admission her Hgb was 7.8. She received PRBC. Because of the cellulitis, she was started on IV antibiotics. She is currently on Cleocin and Meropenem. I was asked to evaluate this patient for surgical options for treatment. Past Medical History Past Medical History (Chronic Problems): Chronic Problems (Last Updated 01/04/19 @ 17:12 by Kary Monk MD) Chronic GI bleeding (Chronic) GERD (gastroesophageal reflux disease) (Chronic) Dementia (Chronic) Restrictive airway disease (Chronic) LAURITA (obstructive sleep apnea) (Chronic) Bilateral lower extremity edema (Chronic) Open wound of right knee (Chronic) Traumatic,penetratiung with fat layer exposed. Essential hypertension (Chronic) Type 2 diabetes mellitus (Chronic) Venous insufficiency of both lower extremities (Chronic) Diastolic CHF (Chronic) Iron deficiency anemia (Chronic) etiology unknown Ulcer of right lower extremity with fat layer exposed (Chronic) Ulcer of right foot with fat layer exposed (Chronic) Ulcer of left lower extremity with fat layer exposed (Chronic) PVD (peripheral vascular disease) (Chronic) Presence of stent in coronary artery (Chronic ~08/29/12) PTCA/stent to CX; PTCA/Stent PTCA/stent to prox RCA 05/06; PTCA/LILY in mid to distal RCA 08/29/12 Atherosclerotic heart disease of [place] coronary artery without angina pectoris (Chronic) PTCA/stent to CX; PTCA/Stent PTCA/stent to prox RCA 05/06; PTCA/LILY in mid to distal RCA 08/29/12; CABG x2 ARREGUIN tp LAD and SVG to OM2 01/02/11 S/P CABG (coronary artery bypass graft) (Chronic ~01/02/11) CABG x2 ARREGUIN tp LAD and SVG to OM2 01/02/11 Paroxysmal atrial fibrillation (Chronic) Hyperlipidemia (Chronic) Medical History: Medical History (Last Updated 01/04/19 @ 17:12 by Kary Monk MD) Essential hypertension (Chronic) I10 Type 2 diabetes mellitus (Chronic) E11.9 Diastolic CHF (Chronic) I50.30 Iron deficiency anemia (Chronic) D50.9 etiology unknown Ulcer of right lower extremity with fat layer exposed (Chronic) L97.912 Ulcer of right foot with fat layer exposed (Chronic) L97.512 Ulcer of left lower extremity with fat layer exposed (Chronic) L97.922 PVD (peripheral vascular disease) (Chronic) I73.9 Presence of stent in coronary artery (Chronic) Onset Date: ~08/29/12 Z95.5 PTCA/stent to CX; PTCA/Stent PTCA/stent to prox RCA 05/06; PTCA/LILY in mid to distal RCA 08/29/12 Atherosclerotic heart disease of [place] coronary artery without angina pectoris (Chronic) I25.10 PTCA/stent to CX; PTCA/Stent PTCA/stent to prox RCA 05/06; PTCA/LILY in mid to distal RCA 08/29/12; CABG x2 ARREGUIN tp LAD and SVG to OM2 01/02/11 Paroxysmal atrial fibrillation (Chronic) I48.0 Hyperlipidemia (Chronic) E78.5 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 Diabetic ulcer of both lower extremities E11.622, L97.919, L97.929 History of DVT (deep vein thrombosis) Z86.718 Trigeminal neuralgia G50.0 Multiple sclerosis G35 LAURITA (obstructive sleep apnea) G47.33 Peripheral vascular disease I73.9 Venous insufficiency of both lower extremities I87.2 Cognitive impairment (Inactive) R41.89 patient is confused at times Allergies codeine Allergy (Unknown, Verified 01/04/19 12:10) Hives cefazolin Allergy (Verified 01/04/19 12:10) Rash ciprofloxacin [From Cipro] Allergy (Verified 01/04/19 12:10) Hives ciprofloxacin HCl [From Cipro] Allergy (Verified 01/04/19 12:10) Hives Latex, Natural Rubber Allergy (Verified 01/04/19 12:10) Rash Penicillins [PCN] Allergy (Verified 01/04/19 12:10) Hives vancomycin Allergy (Verified 01/04/19 12:10) Angioedema adhesive tape Adverse Reaction (Verified 01/04/19 12:10) Rash Home Medications: Ambulatory Orders Medication Instructions Recorded Amiodarone HCl 200 mg PO DAILY 04/09/18 Duloxetine HCl 60 mg PO DAILY 04/09/18 Magnesium Oxide [Mag-Ox 400] 400 mg PO BID 04/09/18 Metoprolol Tartrate [Lopressor 50 mg PO BID 04/09/18 (beta tommy)] Pantoprazole Sodium [Protonix] 40 mg PO DAILY 04/09/18 Docusate Sodium 100 mg PO DAILY PRN PRN 05/22/18 Ergocalciferol (Vitamin D2) 50,000 unit PO QWEEK 05/22/18 [Vitamin D2] Donepezil HCl 5 mg PO DAILY 08/19/18 Potassium Chloride [Klor-Con M20] 20 meq PO BID 08/19/18 Furosemide [Lasix] 60 mg PO DAILY #1 tab 08/23/18 ferrous sulfate 325 mg (65 mg 325 mg PO DAILY 09/25/18 iron) tablet,delayed release gabapentin 300 mg capsule 600 mg PO BID cap 09/25/18 budesonide 180 mcg/actuation 1 inh INHALATION BID PRN inhaler 11/18/18 breath activated powder inhaler Albuterol Sulfate [Albuterol 8.5 gm IH PRN PRN 12/13/18 Sulfate Hfa] Amlodipine [Norvasc] 2.5 mg PO DAILY 12/13/18 hydrALAZINE [Apresoline] 50 mg GT TID 01/04/19 Acetaminophen [Tylenol Tablet] 650 mg PO Q6H PRN PRN tab 01/08/19 Albuterol Aerosols [Ventolin 2.5 mg INHALATION Q4H PRN PRN 01/08/19 Aerosols] vial.neb. Apixaban [Eliquis] 2.5 mg PO BID tab 01/08/19 Meropenem [Merrem] 1 gm IV Q12 vial 01/08/19 Oxycodone [Oxyir] 5 mg PO Q4H PRN PRN 3 Days #18 tab 01/08/19 Surgical History: Surgical History (Last Reviewed 12/13/18 @ 21:23 by Farhat Strange MD) S/P CABG (coronary artery bypass graft) (Chronic) Onset Date: ~01/02/11 Z95.1 CABG x2 ARREGUIN tp LAD and SVG to OM2 01/02/11 History of cataract surgery Z98.49 History of cholecystectomy Z98.890, Z90.49 History of hernia repair Z98.890, Z87.19 History of tonsillectomy and adenoidectomy Z98.890 History of total hysterectomy Z98.890, Z90.710 Postsurgical percutaneous transluminal coronary angioplasty (PTCA) status Z98.61 PTCA/stent to CX; PTCA/Stent PTCA/stent to prox RCA 05/06; PTCA/LILY in mid to distal RCA 08/29/12 Presence of coronary angioplasty implant and graft Onset Date: ~08/29/12 Z95.5 PTCA/stent to CX; PTCA/Stent PTCA/stent to prox RCA 05/06; PTCA/LILY in mid to distal RCA 08/29/12 Surgical History: angioplasty, appendectomy, cholecystectomy, coronary bypass surgery, hysterectomy, tonsillectomy, - Psychiatric History: No 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 hx 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 Sibling Family History: Family History (Last Reviewed 12/13/18 @ 21:23 by Farhat Strange MD) Father Heart disease Mother Hypertension Cancer Brother Diabetes Hypertension History Items: Diabetes Review of Systems Comment: General - Denies fever, fatigue, and weight loss. Eyes - Denies cataracts and glaucoma. ENT - Denies nasal congestion and sore throat. Endocrine - Has excessive thirst and urination. She has diabetes mellitus. Skin - Denies suspicious lesions and skin cancer. Musculoskeletal - Denies joint pain, joint stiffness, weakness of muscles and joints, back pain, and arthritis. Neuro - Denies headaches. Cardiovascular - Denies chest pain, fatigue, and shortness of breath with exertion. Psych - Denies anxiety and depression. Respiratory - Denies chronic cough. Has shortness of breath. Patient is a former smoker. Gastrointestinal - Denies nausea, vomiting, diarrhea, and constipation. Hematologic - Has abnormal bruising and bleeding. She is on Xare lto. Genitourinary - Denies hematuria. Has urinary frequency. Has incontinence. - Physical Exam Vitals/I&O's: General - Alert and Oriented. HEENT - PERRL. EOMI. Throat is clear. On the top of scalp at the vertex with some occipital extension is a nonhealing traumatic hematoma wound. At present there is a dry scab. Measures 1 cm. No drainage. It was recently treated with wound care with Silver dressing changes and antibiotics with Zyvox and Flagyl. Neck - Supple and nontender. No cervical adenopathy. Lungs - Clear to auscultation. Heart - Regular rate and rhythm. Abdomen - Soft and nondistended. Extremities - FROM. No axillary adenopathy. Radial pulses are palpable. No inguinal adenopathy. Dorsalis pedis pulses are palpable. Has lower extremity edema. She wears compression stockings. She has bilateral leg cellulitis which is showing improvement with the IV antibiotics (Cleocin and Meropenem). On the right anterolateral leg is a traumatic hematoma with overlying skin necrosis. Tender to palpation. No purulent drainage. Measures 12 cm. On the right proximal posteromedial leg is a traumatic hematoma with overlying skin necrosis. Tender to palpation. No purulent drainage. Measures 5 cm. On the left proximal posteromedial leg is a traumatic hematoma with overlying skin necrosis. Tender to palpation. No purulent drainage. Measures 5 cm. Neuro - CN II-XII grossly intact. Psych - Normal mood and affect. Vital Signs Temp Pulse Resp BP Pulse Ox 98.6 F 79 18 142/58 H 96 01/05/19 16:33 01/05/19 18:00 01/05/19 16:33 01/05/19 16:33 01/05/19 16:33 Oxygen Flow Rate (L/min) 2 Oxygen Delivery Method Nasal Cannula Weight: 203 lb 7.787 oz Body Mass Index (BMI) 39.7 Finger Stick Blood Glucose 187 Intake and Output for Last 24 Hours 01/03/19 01/04/19 01/05/19 23:59 23:59 23:59 Intake Total 931.60 / 1431.60 1275.23 / 1275.23 Output Total 500 / 500 Balance 931.60 / 1431.60 775.23 / 775.23 Microbiology Past 72 Hours 01/04/19 17:45 Wound - Leg, Right Gram Stain - Final 01/04/19 17:45 Wound - Leg, Right Wound Culture - Preliminary Gram negative james Laboratory Results 01/04/19 17:20: Crossmatch See Detail 01/05/19 05:00: WBC 10.7, RBC 2.92 L, Hgb 8.3 L, Hct 28.4 L, MCV 97.3, MCH 28.4, MCHC 29.2 L, RDW Std Deviation 58.6 H, RDW Coeff of Carissa 17.4 H, Plt Count 302, MPV 10.3, Immature Gran % (Auto) 0.900, Neut % (Auto) 69.7, Lymph % (Auto) 15.2 L, [place] % (Auto) 11.6 H, Eos % (Auto) 2.3, Baso % (Auto) 0.3, Absolute Neuts (auto) 7.4, Absolute Lymphs (auto) 1.62, Nucleated RBC % 0.4 01/05/19 05:00: Sodium 141, Potassium 4.3, Chloride 107, Carbon Dioxide 30.0, Anion Gap 4 L, BUN 14, Creatinine 1.11 H, Estim Creat Clear Calc 31.94, Est GFR (MDRD) Af Amer 62, Est GFR (MDRD) Non-Af 51 L, BUN/Creatinine Ratio 12.6, Glucose 106, Calcium 8.2 L 01/05/19 05:00: Total Bilirubin 0.30, Direct Bilirubin 0.08, AST 14 L, ALT 16, Alkaline Phosphatase 64, Total Protein 5.2 L, Albumin 2.2 L, Globulin 3.0 01/05/19 06:35: Urine Color Yellow, Urine Clarity Cloudy, Urine pH 5.0, Ur Specific [place] 1.020, Urine Protein 30 H, Urine Glucose (UA) Normal, Urine Ketones Negative, Urine Occult Blood 25 H, Urine Nitrite Negative, Urine Bilirubin Negative, Urine Urobilinogen Normal, Ur Leukocyte Esterase 500 H, Urine RBC 0 SEEN, Urine WBC >100 SEEN, Ur Squamous Epith Cells 0 SEEN, Urine Bacteria 2+, Urine Mucus 0 SEEN Current Medications Acetaminophen (Tylenol) 650 mg PO Q6H PRN PRN PRN Reason: Pain Score 1-3/Temp > 100.7 F Albuterol Sulfate (Ventolin Aerosols) 2.5 mg INHALATION Q4H PRN PRN PRN Reason: Shortness of breath, wheezing Amiodarone HCl (Cordarone) 200 mg PO DAILY [facility] Last Admin: 01/05/19 13:02 Dose: 200 mg Documented by: Amlodipine Besylate (Norvasc) 2.5 mg PO DAILY [facility] Last Admin: 01/05/19 13:02 Dose: 2.5 mg Documented by: Budesonide (Pulmicort Aerosol) 0.5 mg INHALATION Q12H.RT [facility] Last Admin: 01/05/19 19:43 Dose: 0.5 mg Documented by: Diphenhydramine HCl (Benadryl) 25 mg PO TID PRN PRN PRN Reason: Itching, hives Docusate Sodium (Colace) 100 mg PO DAILY PRN PRN PRN Reason: Constipation Donepezil HCl (Aricept) 5 mg PO QHS [facility] Last Admin: 01/04/19 21:56 Dose: 5 mg Documented by: Duloxetine HCl (Cymbalta) 60 mg PO DAILY [facility] Last Admin: 01/05/19 13:03 Dose: 60 mg Documented by: Ferrous S[facility] ([facility]ous Sulfate) [facility] Admin: 01/05/19 13:03 Dose: 325 mg Documented by: Furosemide (Lasix) 60 mg PO DAILY [facility] Last Admin: 01/05/19 13:01 Dose: 60 mg Documented by: Gabapentin (Neurontin) [facility] Last Admin: 01/05/19 16:38 Dose: 300 mg Documented by: Hydralazine HCl (Apresoline) 50 mg GT TID [facility] Last Admin: 01/05/19 16:36 Dose: 50 mg Documented by: Meropenem 1 gm/ Sodium (Chloride) 120 mls @ 33 mls/hr IV Q12 [facility] Last Infusion: 01/05/19 17:34 Dose: Infused Documented by: Sodium Chloride () 250 mls @ 15 mls/hr IV .[id number] PRN PRN Reason: Saline Flush Last Infusion: 01/05/19 17:34 Dose: 15 mls/hr Documented by: Clindamycin Phosphate 600 mg/ (Dextrose) 54 mls @ 100 mls/hr IV Q8 [facility] Last Infusion: 01/05/19 14:30 Dose: Infused Documented by: Magnesium Oxide (Mag-Ox 400) 400 mg PO BID [facility] Last Admin: 01/05/19 13:02 Dose: 400 mg Documented by: Metoprolol Tartrate (Lopressor (Beta Tommy)) 50 mg PO BID [facility] Last Admin: 01/05/19 13:03 Dose: 50 mg Documented by: Ondansetron HCl (Zofran) 4 mg IV Q8H PRN PRN PRN Reason: NAUSEA/VOMITING Oxycodone HCl (Oxyir) 5 mg PO Q4H PRN PRN PRN Reason: Pain Score 4-5/10 Pantoprazole Sodium (Protonix) 40 mg PO DAILY [facility] Last Admin: 01/05/19 13:03 Dose: 40 mg Documented by: Sodium Chloride () 10 - 40 ml IV UD PRN PRN Reason: SALINE FLUSH Last Admin: 01/05/19 16:35 Dose: 10 ml Documented by: Assessment/Plan All Active Problems (Last Updated 01/04/19 @ 17:12 by Kary Monk MD) Traumatic hematoma of right lower leg with infection (Acute) Traumatic hematoma of left lower leg with infection (Acute) Cellulitis of right lower extremity (Acute) Cellulitis of left lower extremity (Acute) Accidental fall (Acute) Traumatic hematoma of multiple sites of lower extremity with infection (Acute) ASSESSMENT 1. Infected hematoma right anterolateral leg and right proximal posteromedial leg with overlying skin necrosis. 2. Infected hematoma left proximal posteromedial leg with overlying skin necrosis. 3. Cellulitis bilateral legs, slowly resolving. 4. Traumatic hematoma wound top of scalp at vertex with occipital extension, healing. 5. Hematoma top of scalp at vertex with occipital extension. 6. Accidental fall. 7. Diabetes mellitus. 8. Former smoker. 9. Anemia of chronic disease, acute on chronic. 10. [facility] use of anticoagulation - Xarelto. PLAN X-ray right tib-fib reviewed from 12/29/18. No fracture seen. Patient has traumatic hematomas to her bilateral legs with associated cellulitis. Recent wound culture is showing Gram negative rods. Continue the Cleocin and Meropenem. There is necrotic skin overlying these hematoma wounds. Recommend operative intervention with surgical preparation bilateral legs with incision and drainage and evacuation of the hematoma and excisional debridement of these infected hematomas with overlying skin necrosis. Will send tissue to Pathology for analysis to rule out carcinoma and to Microbiology for culture. A positive culture will necessitate antibiotic therapy. Postoperatively, will proceed with wound care with the VAC. After discharge, may benefit from a short stay at an F considering she has fal jocelin twice at home leading to multiple hematomas. After discharge, may [facility]up [facility]. If there is a plateau in the healing process, can proceed with delayed closure with skin grafting. Will schedule the surgery tomorrow under general anesthesia. Upon admission her Hgb was low at 7.8. She received PRBC. Patient was informed of the risks and complications of the procedure including alternatives to surgery. These were discussed with the patient personally. Patient voices understanding and wishes to proceed. Will debride the scab on the top of scalp and if not healed, can continue daily Silver dressing changes. Code Visit Inpatient E&M: 06979 Init Hosp L2 - ICD-10 - S80.12xA, S80.11xA, L03.115, L03.116, I96, W19.xxxA, E11.9, Z79.01, Z87.891
[2019-01-05] MEDS: Donepezil HCl 5 MG Tablet PO (23:12)
[2019-01-06] VITALS (29 sets, daily range): BP systolic 96–131; BP diastolic 38–93; PULSE 57–80; RESP 16–20; TEMP 36.2–36.9; O2SAT 95–100; BMI 39.7
--- NOTE | 2019-01-06 05:00 | EKG12_ITS ---
Test Reason : PRE OP Blood Pressure : / mmHG Vent. Rate : 061 BPM Atrial Rate : 061 BPM P-R Int : 170 ms QRS Dur : 082 ms QT Int : 430 ms P-R-T Axes : 045 015 118 degrees QTc Int : 432 ms Normal sinus rhythm T wave abnormality, consider lateral ischemia Abnormal ECG When compared with ECG of 13-DEC-2018 15:30, No significant change was found Confirmed by BLACK HATCH, PARDEEP ([id number]), rewrite editor MARÍA RAE ([id number]) on 01/07/2019 3:01:59 PM Referred By: Kary Monk Confirmed By:PARDEEP CLEANING MD
[2019-01-06] MEDS: hydrALAZINE 50 MG Tablet GT (05:26)
[2019-01-06 05:59] LABS: Absolute Lymphocyte Count 1.81 X10^3/uL (0.83-4.51); Absolute Neutrophil Count 7.2 X10^3/uL (2.0-7.7); Basophil# 0.04 X10^3/uL; Basophil% 0.4 % (0-1); Eosinophil# 0.38 X10^3/uL; Eosinophils% 3.6 % (0-5); Hematocrit 25.6 % (37-47); Hemoglobin 7.8 g/dL (12.0-15.0); Lymphocyte # 1.81 X10^3/ul (4.0); Lymphocyte % 17.1 % (19-41); Mean Corp Hgb Conc 30.5 g/dL (32-36); Mean Corpuscular Hgb 28.9 pg (27.0-32.0); Mean Corpuscular Volume 94.8 fL (81-99); Mean Platelet Vol. 10.1 fl (6.2-12.0); Monocyte# 1.07 X10^3/uL; Monocyte% 10.1 % (0-10); NRBC Flagged by Analyzer 0 % (0-5); Neutrophil # 7.15 X10^3/uL (2.7-7.7); Neutrophil % 67.8 % (47-70); Platelet Count 293 K/mm3 (150-450); RBC Distribution Width CV 17.2 % (11.6-14.6); RBC Distribution Width SD 57.2 fl (35.1-43.9); White Blood Count 10.6 K/mm3 (4.4-11.0)
[2019-01-06 06:11] LABS: Anion Gap 4 (5-15); BUN 16 mg/dL (7-18); BUN/Creat Ratio 15.5 RATIO (10-20); Calcium,Total 8.2 mg/dL (8.5-10.1); Chloride 106 mmol/L (98-107); Creatinine, Serum 1.03 mg/dL (0.55-1.02); EST Glomerular Filtration Rate 56 mL/min (>60); Est Glom Filt Rate - Afr Amer 67 mL/min (>60); Estimated Creatinine Clearance 34.42 ml/min; Glucose 95 mg/dL (74-106); Potassium 3.9 mmol/L (3.5-5.1); Sodium Level 141 mmol/L (136-145)
[2019-01-06 06:24] LABS: International Normalized Ratio 1.1; Prothrombin Time (Protime)PT. 14.1 SECONDS (11.7-14.9)
[2019-01-06 06:25] LABS: Partial Thromboplast Time 30.3 Seconds (24.1-36.2)
[2019-01-06] MEDS: Budesonide Respules 0.5 MG/2 ML AMPUL.NEB. INHALATION ×2 (07:02→19:11)
--- NOTE | 2019-01-06 08:51 | NURSING ---
verified with Blood bank- blood is ready
--- NOTE | 2019-01-06 08:52 | NURSING ---
wound photo: right anterolateral lower leg
--- NOTE | 2019-01-06 08:54 | NURSING ---
wound photo: right medial lower leg
--- NOTE | 2019-01-06 08:54 | NURSING ---
wound photo: left medial lower leg
--- NOTE | 2019-01-06 08:55 | NURSING ---
wound photo: scalp
[2019-01-06] MEDS: Furosemide 40 MG Tablet 60 MG PO (09:11)
[2019-01-06] MEDS: Metoprolol Tartrate 50 MG Tablet PO ×2 (09:11→21:52)
[2019-01-06] MEDS: Pantoprazole Sodium 40 MG Tablet PO (09:11)
[2019-01-06] MEDS: amLODIPine 2.5 MG Tablet PO (09:12)
[2019-01-06] MEDS: DULoxetine Hcl 60 MG Capsule PO (09:12)
[2019-01-06] MEDS: Amiodarone 200 MG Tablet PO (09:13)
[2019-01-06] MEDS: Gabapentin 300 MG Capsule PO ×2 (09:13→16:04)
[2019-01-06] MEDS: Magnesium Oxide 400 MG Tablet PO ×2 (09:13→21:52)
[2019-01-06] MEDS: Acetaminophen 325 MG Tablet 650 MG PO (09:15)
[2019-01-06] MEDS: Docusate Sodium 100 MG Capsule PO (09:16)
--- NOTE | 2019-01-06 11:30 | UL_PTH ---
PATIENT: SINA VIZCARRA LOC: [facility] U#:[id number] AGE/SX: 73/F ROOM: MN320 RE01/04/[address]: Dr. Preston Hubbard MD : [id number] BED: 1 DIS: 01/08/2019 SPEC #: [id number] RECD: 01/06/19 13:22 STATUS: RENARD REQ #: [id number] GERALDO: 01/06/19 11:[address]: Farhat Strange DEPT: SURGICAL PATHOLOGY RECD BY: Cheko Valles ENTERED: 01/06/19 13:51 SP TYPE: ULCER OTHR DR: MD Dr. Tj Petersen MD Dr. Prakash Chand, MD Dr. Tai Chi Kwok, MD Tissues: A - ULCER B - ULCER C - ULCER Procedures: PAS Fungus (control) Special Stain Group I Surgery Specimen Level III AFB Stain (control) HEADER OPERATION: Incision and drainage infected hematoma, legs PRE-OP DIAGNOSIS: Chronic open wound of right knee, traumatic, penetrating with fat layer exposed; chronic ulcer of right lower extremity with fat layer exposed; chronic ulcer of right foot with fat layer exposed; chronic ulcer of left lower extremity with fat layer exposed TISSUE SUBMITTED: A - Right proximal posterior medial ulcer, B - Left proximal posterior medial ulcer, C - Right anterior lateral ulcer MICROSCOPIC DIAGNOSIS A. Right proximal medial leg ulcer: A piece of skin with underlying tissue with extensive ulceration, acute and chronic inflammation, granulation tissue reaction and hemorrhage, consistent with hematoma. Special stains for acid fast bacilli and fungi are negative for organisms; matched controls are appropriate. B. Left proximal medial leg ulcer: A piece of skin with underlying tissue with extensive ulceration, acute and chronic inflammation, granulation tissue reaction and hemorrhage, consistent with hematoma. Special stains for acid fast bacilli and fungi are negative for organisms; matched controls are appropriate. C. Right anterior lateral leg ulcer: A piece of skin with underlying tissue with extensive ulceration, acute and chronic inflammation, granulation tissue reaction and hemorrhage, consistent with hematoma. Special stains for acid fast bacilli and fungi are negative for organisms; matched controls are appropriate. SJ:[place] 01/07/19 MICROSCOPIC DESCRIPTION Slides are reviewed. GROSS DESCRIPTION A - Received in fixative is one container labeled with the patient's name and designated right proximal posterior medial leg ulcer. The specimen consists of a piece of skin with underlying tissue measuring 3.5 x 2.5 cm and up to 0.6 cm in thickness. The skin surface shows an area of ulceration. Educational Director sections are submitted in two cassettes. B - Received in fixative is one container labeled with the patient's name and designated left proximal posterior medial leg ulcer. The specimen consists of a piece of skin with underlying tissue measuring 4.5 x 4 cm and up to 1.5 cm in thickness. The skin surface shows an area of ulceration. Educational Director sections are submitted in three cassettes. C - Received in fixative is one container labeled with the patient's name and designated right anterior lateral leg ulcer. The specimen consists of a piece of skin with underlying tissue measuring 10 x 8.5 cm and up to 1 cm in thickness. Sections reveal focal congested and hemorrhagic cut surfaces. Educational Director sections are submitted in three cassettes. / SJ:[place] 01/06/19 TC:2 CPT: 38010 x3, 92106 x6
--- NOTE | 2019-01-06 12:02 | PCM.OPRPT ---
Report of Operation Date of Procedure: 01/06/19 Pre-Operative Diagnosis: 1. Infected hematoma right anterolateral leg with overlying skin necrosis. 2. Infected hematoma right proximal posteromedial leg with overlying skin necrosis. 3. Infected hematoma left proximal posteromedial leg with overlying skin necrosis. 4. Cellulitis bilateral legs, slowly resolving. 5. Accidental fall. 6. Diabetes mellitus. 7. Former smoker. 8. Anemia of chronic disease, acute on chronic. 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 Post-Operative Diagnosis: Same. Surgery/Procedure Performed:: 1. Surgical preparation right anterolateral leg with incision and drainage and evacuation and excisional debridement infected hematoma with overlying skin necrosis (85.5 cm2). 2. Surgical preparation right proximal posteromedial leg with incision and drainage and evacuation and excisional debridement infected hematom with overlying skin necrosis (22.5 cm2). 3. Surgical preparation left proximal posteromedial leg with incision and drainage and evacuation and excisional debridement infected hematoma with overlying skin necrosis (30 cm2). Description of Surgical Findings:: The patient is a 73 year old F patient with a history of diabetes mellitus and atrial fibrillation on Xarelto was recently admitted to the hospital because of increasing redness, and pain, and swelling in her bilateral legs after sustaining a fall at home a week ago. Because she is on Xarelto, she developed hematomas and overlying skin compromise. She was recently discharged from [facility] on after initial treatment of her hematomas. Patient states no surgery was done. They dressed it and started her an antibiotics. She denies fever or chills. She has history of chronic bilateral leg edema with venous insufficiency as well as chronic bilateral leg wounds. She was discharged from our hospital on December 19, 2018 after admission for nonhealing traumatic hematoma of the scalp with extension to the occipital region after mechanical fall as well as acute head injury. At that time she was discharged on Zyvox and Flagyl for Enterococcus faecalis, MRSE, Corynebacterium amycolatum/xer, and Anaerobic cocci and had finished them when she fell again at home. Upon admission her Hgb was 7.8. She received PRBC. Because of the cellulitis, she was started on IV antibiotics. She is currently on Cleocin and Meropenem. I was asked to evaluate this patient for surgical options for treatment. Patient was informed of the risks and complications of the procedure including alternatives to surgery. These were discussed with the patient personally. Patient voices understanding and wishes to proceed. Size of defect right anterolateral leg - 9 x 9.5 x 1 cm. Size of defect right proximal posteromedial leg - 4.5 x 5 x 1 cm. Size of defect left proximal posteromedial leg - 5 x 6 x 1 cm. 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 Infected hematoma right anterolateral leg with overlying skin necrosis to Pathology and Microbiology. 2. Infected hematoma right proximal posteromedial leg with overlying skin necrosis to Pathology and Microbiology. 3. Infected hematoma left proximal posteromedial leg with overlying skin necrosis to Pathology and Microbiology. Drains: None. Estimated Blood Loss (mL): 50 ml. Description of Procedure: The patient was taken to the operating room in a supine position. She was placed under general anesthesia and her bilateral legs were prepped and draped in the usual fashion. SCDs were not placed because both legs were involved and it was a short case and she is already on anticoagulation with Xarelto for atrial fibrillation. Perioperative antibiotics were given intravenously. Using 1% Xylocaine and epinephrine, the hematoma wounds were infiltrated bilaterally. The wounds were on the right anterolateral leg, right proximal posteromedial leg, and left proximal posteromedial leg. After waiting 5 minutes for the anesthetic to take effect, incision and drainage procedure were performed bilaterally involving the right anterolateral leg, right proximal posteromedial leg, and left proximal posteromedial leg down through the subcutaneous tissue and fascia down to the underlying muscle. Lot of fat necrosis was present. Some hematoma was present that was evacuated. After the incision and drainage and evacuation of the hematoma, I then proceeded with excisional debridement of a lot of fat necrosis present surrounding these wounds with lot of undermining. The overlying necrotic skin was also excised and debrided. Some of the tissue was sent to microbiology for culture. The rest was sent to pathology for analysis. Hemostasis obtained using electrocautery. No exposed bone was seen after the debridements. The size of the defect of the right anterolateral leg after the incision and drainage and excisional debridement was 9 x 9.5 x 1 cm. Size of defect right proximal posteromedial leg was 4.5 x 5 x 1 cm. Size of defect of left proximal posteromedial leg after incision and drainage and excisional debridement was 5 x 6 x 1 cm. The wounds were irrigated with saline. Hemostasis was obtained using electrocautery. I then dressed the wounds bilaterally using Mepitel nonadherent dressing followed by Kerlix gauze with Betadine followed by dry Kerlix gauze and a compression Pino wrap. The patient tolerated the procedures well and will be sent to the recovery room in satisfactory condition. She will be admitted back upstairs for postoperative wound care. She will keep her legs elevated when sitting. She will have the wound VAC placed tomorrow. She will continue her antibiotics IV. Any changes in the operative cultures may necessitate antibiotic modification. Also, we will check a prealbumin perioperatively. I anticipate increased metabolic demands and she will need nutritional supplementation with protein to help with the healing process. She may ambulate with assistance. I don't want her standing around because of risk of increased swelling. Also after discharge, she will follow up at the [facility]. If there is a plateau in the healing process, can proceed with delayed closure with skin grafting. Grafts/Implants Used: None. - Complications None. - Admit VTE Documentation VTE Present on Admission: No VTE Mechan Device Prophylaxis: None - surgery was on both legs and it was a short procedure and the patient is already on anticoagulation (Xarelto) for atrial fibrillation. VTE Pharm Prophylaxis ordered?: Yes Code Visit Surgery Charges CPT - 19721 ICD-10 -S80.11xA, S80.12xA, L03.115, L03.116, I96, W19.xxxA, E11.9, Z79.01, Z87.891 17571 S80.11xA, L03.115, I96, W19.xxxA, E11.9, Z79.01, Z87.891 61431 S80.11xA, L03.115, I96, W19.xxxA, E11.9, Z79.01, Z87.891 91478 S80.12xA, S80.11xA, L03.115, L03.116, I96, W19.xxxA, E11.9, Z79.01, Z87.891 63099 S80.12xA, L03.116, I96, W19.xxxA, E11.9, Z79.01, Z87.891
[2019-01-06] MEDS: 0.9% Saline Lock 10 ML Syringe IV ×2 (12:30→12:59)
--- NOTE | 2019-01-06 13:14 | PCM.PN.HOSP ---
<Donn Reinoso - Last Filed: 01/06/19 13:14> Reason for Visit: RLE pain, wound Subjective: Pt seen and examined prior to surgery today. No fevers chills or night sweats overnight. Continued ongoing right lower extremity pain. Described as aching 7-8 out of 10 pain. No numbness or tingling of the affected extremity. No nausea, vomiting, diarrhea. No shortness of breath at rest, mildly short of breath with exertion. She is more alert less lethargic today. Vitals/I&O's: Vital Signs Temp Pulse Resp BP Pulse Ox 97.8 F 57 L 16 96/49 L 97 01/06/19 12:10 01/06/19 13:00 01/06/19 13:00 01/06/19 13:00 01/06/19 13:00 Oxygen Flow Rate (L/min) 2 Oxygen Delivery Method Nasal Cannula Weight: 203 lb 7.787 oz Body Mass Index (BMI) 39.7 Finger Stick Blood Glucose 187 Intake and Output for Last 24 Hours 01/04/19 01/05/19 01/06/19 23:59 23:59 23:59 Intake Total 931.60 / 1431.60 1329.23 / 1529.23 1241.75 / 1241.75 Output Total 500 / 650 400 / 400 Balance 931.60 / 1431.60 829.23 / 879.23 841.75 / 841.75 General: Alert, Oriented x3, Cooperative HEENT: Atraumatic, PERRLA, EOMI, Normocephalic Neck: Supple, No JVD, Negative Carotid Bruits Lungs: Clear to auscultation, Normal air movement Cardiovascular: Regular rate, No murmurs Abdomen: Bowel Sounds Present, Soft, Non Tender Extremities: No edema, Capillary Refill Less than 3 Seconds Skin: No rashes, No breakdown Musculoskeletal: No Tenderness to Palpation of Joints or Extremities Neurological: Cranial nerves II-XII grossly intact Psych/Mental Status: Normal Affect, Appropriate, Alert and oriented to time, place, person, mood and affect Microbiology Past 72 Hours 01/04/19 17:45 Wound - Leg, Right Gram Stain - Final 01/04/19 17:45 Wound - Leg, Right Wound Culture - Preliminary GNR Poss Pseudomonas sp GNR lactose social work administrator Laboratory Results 01/04/19 17:20: Crossmatch See Detail 01/06/19 05:38: WBC 10.6, RBC 2.70 L, Hgb 7.8 L, Hct 25.6 L, MCV 94.8, MCH 28.9, MCHC 30.5 L, RDW Std Deviation 57.2 H, RDW Coeff of Carissa 17.2 H, Plt Count 293, MPV 10.1, Immature Gran % (Auto) 1.000 H, Neut % (Auto) 67.8, Lymph % (Auto) 17.1 L, [place] % (Auto) 10.1 H, Eos % (Auto) 3.6, Baso % (Auto) 0.4, Absolute Neuts (auto) 7.2, Absolute Lymphs (auto) 1.81, Nucleated RBC % 0 01/06/19 05:38: Sodium 141, Potassium 3.9, Chloride 106, Carbon Dioxide 31.0, Anion Gap 4 L, BUN 16, Creatinine 1.03 H, Estim Creat Clear Calc 34.42, Est GFR (MDRD) Af Amer 67, Est GFR (MDRD) Non-Af 56 L, BUN/Creatinine Ratio 15.5, Glucose 95, Calcium 8.2 L 01/06/19 05:38: PT 14.1, INR 1.1, APTT 30.3 Current Medications Acetaminophen (Tylenol) 650 mg PO Q6H PRN PRN PRN Reason: Pain Score 1-3/Temp > 100.7 F Last Admin: 01/06/19 09:15 Dose: 650 mg Documented by: Albuterol Sulfate (Ventolin Aerosols) 2.5 mg INHALATION Q4H PRN PRN PRN Reason: Shortness of breath, wheezing Amiodarone HCl (Cordarone) 200 mg PO DAILY [facility] Last Admin: 01/06/19 09:13 Dose: 200 mg Documented by: Amlodipine Besylate (Norvasc) 2.5 mg PO DAILY [facility] Last Admin: 01/06/19 09:12 Dose: 2.5 mg Documented by: Budesonide (Pulmicort Aerosol) 0.5 mg INHALATION Q12H.RT [facility] Last Admin: 01/06/19 07:02 Dose: 0.5 mg Documented by: Diphenhydramine HCl (Benadryl) 25 mg PO TID PRN PRN PRN Reason: Itching, hives Docusate Sodium (Colace) 100 mg PO DAILY PRN PRN PRN Reason: Constipation Last Admin: 01/06/19 09:16 Dose: 100 mg Documented by: Donepezil HCl (Aricept) 5 mg PO QHS [facility] Last Admin: 01/05/19 23:12 Dose: 5 mg Documented by: Duloxetine HCl (Cymbalta) 60 mg PO DAILY [facility] Last Admin: 01/06/19 09:12 Dose: 60 mg Documented by: [facility] Last Admin: 01/06/19 10:14 Dose: Not Given Documented by: Furosemide (Lasix) 60 mg PO DAILY [facility] Last Admin: 01/06/19 09:11 Dose: 60 mg Documented by: Gabap[facility]in) [facility] Last Admin: 01/06/19 09:13 Dose: 300 mg Documented by: Hydralazine HCl (Apresoline) 50 mg GT TID [facility] Last Admin: 01/06/19 05:26 Dose: 50 mg Documented by: Meropenem 1 gm/ Sodium (Chloride) 120 mls @ 33 mls/hr IV Q12 [facility] Last Infusion: 01/06/19 12:21 Dose: Infused Documented by: Sodium Chloride () 250 mls @ 15 mls/hr IV .[id number] PRN PRN Reason: Saline Flush Last Infusion: 01/06/19 12:39 Dose: Infused Documented by: Clindamycin Phosphate 600 mg/ (Dextrose) 54 mls @ 100 mls/hr IV Q8 [facility] Last Infusion: 01/06/19 05:52 Dose: Infused Documented by: Sodium Chloride () 500 mls @ 15 mls/hr IV PRN PRN PRN Reason: Blood Transfusion Last Infusion: 01/06/19 12:30 Dose: Infused Documented by: Magnesium Oxide (Mag-Ox 400) 400 mg PO BID [facility] Last Admin: 01/06/19 09:13 Dose: 400 mg Documented by: Metoprolol Tartrate (Lopressor (Beta Tommy)) 50 mg PO BID [facility] Last Admin: 01/06/19 09:11 Dose: 50 mg Documented by: Ondansetron HCl (Zofran) 4 mg IV Q8H PRN PRN PRN Reason: NAUSEA/VOMITING Oxycodone HCl (Oxyir) 5 mg PO Q4H PRN PRN PRN Reason: Pain Score 4-5/10 Pantoprazole Sodium (Protonix) 40 mg PO DAILY [facility] Last Admin: 01/06/19 09:11 Dose: 40 mg Documented by: Sodium Chloride () 10 - 40 ml IV UD PRN PRN Reason: SALINE FLUSH Last Admin: 01/06/19 12:59 Dose: 10 ml Documented by: STROKE Vital Signs/Narrative: Vital Signs Temp Pulse Resp BP Pulse Ox 01/06/19 13:00 57 L 16 96/49 L 97 01/06/19 12:45 60 16 108/66 99 01/06/19 12:30 60 18 120/59 L 99 01/06/19 12:15 64 20 H 127/93 H 99 01/06/19 12:10 97.8 F 64 16 125/58 H 98 01/06/19 09:35 98.1 F 63 18 131/52 H 100 01/06/19 09:26 67 Medical Necessity - Tobacco Use Smoking Status: Former smoker Assessment/Plan 1. Right lower extremity surrounding cellulitis, infected hematoma - history of wounds with Pseudomonas and enterococcus. NO vanc 2/2 hx angioedema. Allergic to PCN, cipro. Continue clindamycin and meropenem. Leukocytosis resolved. No fever. Dr. Strange on consult. Recent admission to [facility] after fall approximately 1 week prior. Consult ID. Urinalysis positive, send urine culture, possibly wound contaminated with urine. MRSA, MSSA are negative. Wound cultures are pending. -To OR today. 2. Iron deficiency anemia with melanotic stools - xarelto held. S/p T/C 1 unit PRBC, Hgb 7.8-->8.3. Platelets normal. Continue iron. -2 more units PRBC preop today. 3. Hx LE venous and arterial disease - needs outpatient follow up with wound care. Arterial study in 2017 show arterial calcification ([place]). 4. CAD with prior stent, CABG - on beta tommy as o/p, no asa/satin/renetta. 5. PAfib - rate controlled. On amio, metoprolol. 6. Hx chronic diastolic congestive heart failure-no acute exacerbation - continue home lasix. 7. Hypertension - mildly elevated 8. Hyperlipidemia - not on statin therapy 9. GERD - ppi 10. Hx dementia - on aricept 11. Lethargy - decrease gabapentin. 12. LAURITA - not on home CPAP. 13. Restrictive airway dz - recent PFTs per Dr. Pearson - continue aerosols. 14. 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 DVT prophylaxis:SCDs - concern for GI bleed. Discharge planning: PTOT. Consider SNF placement. Failed at home after recent visit to [place]. This patient was seen by Donn Reinoso PA-C under the supervision of Doctor Stevie. <Preston Hubbard - Last Filed: 01/06/19 13:35> Reason for Visit: Right lower extremity infected hematoma with skin necrosis and cellulitis. Right lower leg ulcer and cellulitis Subjective: Patient had operative debridement of infected hematoma and overlying skin necrosis. No fever or chills. Blood pressure is on lower side 96/49. Vitals/I&O's: Vital Signs Temp Pulse Resp BP Pulse Ox 97.8 F 58 L 16 96/51 L 98 01/06/19 12:10 01/06/19 13:15 01/06/19 13:15 01/06/19 13:15 01/06/19 13:15 Oxygen Flow Rate (L/min) 2 Oxygen Delivery Method Nasal Cannula Weight: 203 lb 7.787 oz Body Mass Index (BMI) 39.7 Finger Stick Blood Glucose 187 Intake and Output for Last 24 Hours 01/04/19 01/05/19 01/06/19 23:59 23:59 23:59 Intake Total 931.60 / 1431.60 1329.23 / 1529.23 1241.75 / 1241.75 Output Total 500 / 650 400 / 400 Balance 931.60 / 1431.60 829.23 / 879.23 841.75 / 841.75 General: Alert, Oriented x3, Cooperative HEENT: Atraumatic, PERRLA, EOMI, Normocephalic Neck: Supple, No JVD, Negative Carotid Bruits Lungs: Clear to auscultation, Normal air movement, No rhonchi, No wheeze, No rales Cardiovascular: Regular rate, Regular Rhythm, Normal S1, Normal S2, No murmurs Abdomen: Bowel Sounds Present, Soft, Non Tender, Non-Distended Extremities: No edema, Capillary Refill Less than 3 Seconds Skin: No rashes, No breakdown Musculoskeletal: No Tenderness to Palpation of Joints or Extremities, Arthritic Changes Neurological: Cranial nerves II-XII grossly intact, Deep Tendon Reflexes 2+/4 and Symmetrical, Neuro grossly intact Psych/Mental Status: Normal Affect, Appropriate Microbiology Past 72 Hours 01/04/19 17:45 Wound - Leg, Right Gram Stain - Final 01/04/19 17:45 Wound - Leg, Right Wound Culture - Preliminary GNR Poss Pseudomonas sp GNR lactose social work administrator Laboratory Results 01/04/19 17:20: Crossmatch See Detail 01/06/19 05:38: WBC 10.6, RBC 2.70 L, Hgb 7.8 L, Hct 25.6 L, MCV 94.8, MCH 28.9, MCHC 30.5 L, RDW Std Deviation 57.2 H, RDW Coeff of Carissa 17.2 H, Plt Count 293, MPV 10.1, Immature Gran % (Auto) 1.000 H, Neut % (Auto) 67.8, Lymph % (Auto) 17.1 L, [place] % (Auto) 10.1 H, Eos % (Auto) 3.6, Baso % (Auto) 0.4, Absolute Neuts (auto) 7.2, Absolute Lymphs (auto) 1.81, Nucleated RBC % 0 01/06/19 05:38: Sodium 141, Potassium 3.9, Chloride 106, Carbon Dioxide 31.0, Anion Gap 4 L, BUN 16, Creatinine 1.03 H, Estim Creat Clear Calc 34.42, Est GFR (MDRD) Af Amer 67, Est GFR (MDRD) Non-Af 56 L, BUN/Creatinine Ratio 15.5, Glucose 95, Calcium 8.2 L 01/06/19 05:38: PT 14.1, INR 1.1, APTT 30.3 Current Medications Acetaminophen (Tylenol) 650 mg PO Q6H PRN PRN PRN Reason: Pain Score 1-3/Temp > 100.7 F Last Admin: 01/06/19 09:15 Dose: 650 mg Documented by: Albuterol Sulfate (Ventolin Aerosols) 2.5 mg INHALATION Q4H PRN PRN PRN Reason: Shortness of breath, wheezing Amiodarone HCl (Cordarone) 200 mg PO DAILY [facility] Last Admin: 01/06/19 09:13 Dose: 200 mg Documented by: Amlodipine Besylate (Norvasc) 2.5 mg PO DAILY [facility] Last Admin: 01/06/19 09:12 Dose: 2.5 mg Documented by: Budesonide (Pulmicort Aerosol) 0.5 mg INHALATION Q12H.RT [facility] Last Admin: 01/06/19 07:02 Dose: 0.5 mg Documented by: Diphenhydramine HCl (Benadryl) 25 mg PO TID PRN PRN PRN Reason: Itching, hives Docusate Sodium (Colace) 100 mg PO DAILY PRN PRN PRN Reason: Constipation Last Admin: 01/06/19 09:16 Dose: 100 mg Documented by: Donepezil HCl (Aricept) 5 mg PO QHS [facility] Last Admin: 01/05/19 23:12 Dose: 5 mg Documented by: Duloxetine HCl (Cymbalta) 60 mg PO DAILY [facility] Last Admin: 01/06/19 09:12 Dose: 60 mg Documented by: Ferrous Sulfate (Ferrous Sulfate) 325 mg PO DAILYCM [facility] Last Admin: 01/06/19 10:14 Dose: Not Given Documented by: Furosemide (Lasix) 60 mg PO DAILY [facility] Last Admin: 01/06/19 09:11 Dose: 60 mg Documented by: Gabapentin (Neurontin) 300 mg PO BIDCM [facility] Last Admin: 01/06/19 09:13 Dose: 300 mg Documented by: Hydralazine HCl (Apresoline) 50 mg GT TID [facility] Last Admin: 01/06/19 05:26 Dose: 50 mg Documented by: Meropenem 1 gm/ Sodium (Chloride) 120 mls @ 33 mls/hr IV Q12 [facility] Last Infusion: 01/06/19 12:21 Dose: Infused Documented by: Sodium Chloride () 250 mls @ 15 mls/hr IV .[id number] PRN PRN Reason: Saline Flush Last Infusion: 01/06/19 12:39 Dose: Infused Documented by: Clindamycin Phosphate 600 mg/ (Dextrose) 54 mls @ 100 mls/hr IV Q8 [facility] Last Infusion: 01/06/19 05:52 Dose: Infused Documented by: Sodium Chloride () 500 mls @ 15 mls/hr IV PRN PRN PRN Reason: Blood Transfusion Last Infusion: 01/06/19 12:30 Dose: Infused Documented by: Magnesium Oxide (Mag-Ox 400) 400 mg PO BID [facility] Last Admin: 01/06/19 09:13 Dose: 400 mg Documented by: Metoprolol Tartrate (Lopressor (Beta Tommy)) 50 mg PO BID [facility] Last Admin: 01/06/19 09:11 Dose: 50 mg Documented by: Ondansetron HCl (Zofran) 4 mg IV Q8H PRN PRN PRN Reason: NAUSEA/VOMITING Oxycodone HCl (Oxyir) 5 mg PO Q4H PRN PRN PRN Reason: Pain Score 4-5/10 Pantoprazole Sodium (Protonix) 40 mg PO DAILY [facility] Last Admin: 01/06/19 09:11 Dose: 40 mg Documented by: Sodium Chloride () 10 - 40 ml IV UD PRN PRN Reason: SALINE FLUSH Last Admin: 01/06/19 12:59 Dose: 10 ml Documented by: STROKE Vital Signs/Narrative: Vital Signs Temp Pulse Resp BP Pulse Ox 01/06/19 13:15 58 L 16 96/51 L 98 01/06/19 13:00 57 L 16 96/49 L 97 01/06/19 12:45 60 16 108/66 99 01/06/19 12:30 60 18 120/59 L 99 01/06/19 12:15 64 20 H 127/93 H 99 01/06/19 12:10 97.8 F 64 16 125/58 H 98 01/06/19 09:35 98.1 F 63 18 131/52 H 100 01/06/19 09:26 67 Assessment/Plan This patient was seen in conjunction with Donn RUIZ. I have independently interviewed and examined the patient and reviewed pertinent history, examination findings, laboratory and plan of management. I have reviewed the note and agree with the documented findings with the few additional points. In brief, patient is admitted for multiple active medical diagnoses: 1. Right lower extremity surrounding cellulitis with repaired wound after laceration 2 weeks ago: Previous cultures were reviewed. Previous wound culture from scalp on 12/09 shows Enterococcus faecalis, staph epidermidis and corynebacterium. Urine culture on September 2018 E. coli. Continue clindamycin and meropenem. She completed the treatment with linezolid and Flagyl for posterior scalp infected wound after trauma on 12/21/2018 as per ID recommendation. She developed angioedema on vancomycin on 12/14. Consult ID and Dr. Strange. 01/06: Wound culture on 01/04 shows gram-negative james possible Pseudomonas and lactose social work administrator. Patient seen by Dr. Strange. Was taken for OR for excisional debridement of infected hematoma with overlying skin necrosis of right anterolateral leg, right proximal posterior medial leg and left proximal posterior medial leg. Discussed with the ID. Currently on clindamycin and meropenem. 2. Iron deficiency anemia with melanotic stool: Xarelto is being held. Had 1 unit of transfusion. Monitor H&H. His last .05/02. 01/06: H&H 7.09/29 today. H&H in evening today 3. Cardiac conditions: Coronary artery status post CABG and stent, chronic diastolic heart failure, peripheral vascular disease, paroxysmal A. fib: On amiodarone metoprolol. Xarelto is on hold. 01/06: Mild hypotension after surgery. Holding parameters for antihypertensive medications ordered. She had normal pharmacological myocardial perfusion stress test with preserved EF on May 2017. Last echo in April 2018 reported as EF 65% with a stage I diastolic dysfunction, no regional wall motion abnormalities. LA moderately enlarged. Normal right atrium. Normal RV size and systolic function. Mild 1+ eccentric AI. Last EKG on 31 October 2018 shows normal sinus rhythm at 63 bpm. 4.Diabetes mellitus type 2 with diabetic neuropathy: A1c is 5.4 on 12/13. Glucose on BMP 106. Other comorbidities include trigeminal neuralgia, multiple sclerosis, and chronic venous insufficiency, obstructive sleep apnea and restrictive airway disease chronic degenerative joint disease, impaired mobility and gait instability on walker: And follows Dr. Pearson. 8 DVT prophylaxis: INR was 2.1 six days ago. Hold Xarelto for now I have discussed my assessment with Donn RUIZ and orders have been reviewed. Code Visit Inpatient E&M: 63032 Subs Hosp L3
[2019-01-06 13:56] LABS: Bedside Glucose 91 mg/dL (70-110)
--- NOTE | 2019-01-06 14:01 | CASEMGMT ---
RN CM attempted to complete assessment at this time. Patient is currently at surgery. RN CM to complete assessment at later time.
[2019-01-06] MEDS: Ferrous Sulfate 325 MG Tablet PO (16:04)
[2019-01-06] MEDS: oxyCODONE 5 MG Tablet PO (20:15)
[2019-01-06 21:28] LABS: Hematocrit 33.7 % (37-47); Hemoglobin 10.2 g/dL (12.0-15.0)
[2019-01-06] MEDS: Donepezil HCl 5 MG Tablet PO (21:52)
[2019-01-07] VITALS (16 sets, daily range): BP systolic 110–132; BP diastolic 45–59; PULSE 63–74; RESP 16–20; TEMP 36.6–37.2; O2SAT 91–97
--- NOTE | 2019-01-07 01:52 | NURSING ---
NPO order active on 01/07 at midnight -ordered by Alie. Pt's surgery was 01/06. Talked to nurse discharge planner and she couldn't find a reason for the pt to be NPO. range rider said to put the old diet order in under the original Dr Sunday).
[2019-01-07] MEDS: hydrALAZINE 50 MG Tablet PO (05:07)
[2019-01-07] MEDS: Budesonide Respules 0.5 MG/2 ML AMPUL.NEB. INHALATION ×2 (07:12→19:12)
[2019-01-07] MEDS: oxyCODONE 5 MG Tablet PO ×3 (07:34→20:10)
[2019-01-07 07:41] LABS: Absolute Lymphocyte Count 1.33 X10^3/uL (0.83-4.51); Absolute Neutrophil Count 8.4 X10^3/uL (2.0-7.7); Basophil# 0.02 X10^3/uL; Basophil% 0.2 % (0-1); Eosinophil# 0.24 X10^3/uL; Eosinophils% 2.2 % (0-5); Hematocrit 30.6 % (37-47); Hemoglobin 9.5 g/dL (12.0-15.0); Lymphocyte # 1.33 X10^3/ul (4.0); Mean Corpuscular Hgb 28.8 pg (27.0-32.0); Mean Corpuscular Volume 92.7 fL (81-99); Mean Platelet Vol. 9.7 fl (6.2-12.0); Monocyte% 9.1 % (0-10); NRBC Flagged by Analyzer 0 % (0-5); Neutrophil # 8.36 X10^3/uL (2.7-7.7); Neutrophil % 75.7 % (47-70); Platelet Count 279 K/mm3 (150-450); RBC Distribution Width CV 17.7 % (11.6-14.6); RBC Distribution Width SD 58.8 fl (35.1-43.9); RET-HE 25.3 pg (30-35); Reticulocyte Count 3.73 % (0.5-1.5)
[2019-01-07 07:56] LABS: ALB/GLOB Ratio 0.7 RATIO (0.9-2.4); AST(SGOT) 10 U/L (15-37); Alanine Aminotransfer ALT/SGPT 12 U/L (13-56); Alkaline Phosphatase 61 U/L (45-117); Anion Gap 3 (5-15); BUN 17 mg/dL (7-18); BUN/Creat Ratio 16.3 RATIO (10-20); Calcium,Total 8.3 mg/dL (8.5-10.1); Chloride 107 mmol/L (98-107); Creatinine, Serum 1.04 mg/dL (0.55-1.02); EST Glomerular Filtration Rate 55 mL/min (>60); Est Glom Filt Rate - Afr Amer 67 mL/min (>60); Estimated Creatinine Clearance 34.09 ml/min; Globulin 2.8 g/dL (2.2-4.2); Glucose 85 mg/dL (74-106); Potassium 4.1 mmol/L (3.5-5.1); Protein, Total 4.8 g/dL (6.4-8.2); Sodium Level 142 mmol/L (136-145)
[2019-01-07] MEDS: Pantoprazole Sodium 40 MG Tablet PO (09:17)
[2019-01-07] MEDS: amLODIPine 2.5 MG Tablet PO (09:17)
[2019-01-07] MEDS: Magnesium Oxide 400 MG Tablet PO ×2 (09:17→21:49)
[2019-01-07] MEDS: Ferrous Sulfate 325 MG Tablet PO (09:17)
[2019-01-07] MEDS: Gabapentin 300 MG Capsule PO ×2 (09:17→17:38)
[2019-01-07] MEDS: Metoprolol Tartrate 50 MG Tablet PO ×2 (09:18→21:48)
[2019-01-07] MEDS: DULoxetine Hcl 60 MG Capsule PO (09:18)
[2019-01-07] MEDS: Amiodarone 200 MG Tablet PO (09:18)
[2019-01-07] MEDS: Furosemide 40 MG Tablet 60 MG PO (09:18)
[2019-01-07] MEDS: Docusate Sodium 100 MG Capsule PO (09:23)
--- NOTE | 2019-01-07 10:18 | NURSING ---
wound photo: right anterolateral leg
--- NOTE | 2019-01-07 10:19 | NURSING ---
wound photo: right medial lower leg
--- NOTE | 2019-01-07 10:19 | NURSING ---
wound photo: left medial lower leg
--- NOTE | 2019-01-07 10:20 | CASEMGMT ---
Chart Review: Patient was admitted 12/13-12/19/18 for hematoma to the scalp. See RN CM assessment on 12/17/18. Patient was readmitted on 01/04/19 for leg wound infection. INÉS GLEASON in to discuss discharge plans with patient. Patient is current with [facility]. Patient has wound vac to 3 wounds. Patient is agreeable to SNF, 1st choice W, 2nd TCU. INÉS GLEASON updated JAGDEEP Palumbo regarding request for SNF.
--- NOTE | 2019-01-07 11:21 | CASEMGMT ---
Addendum entered by Digna Palumbo 01/07/19 13:06: SW received message from Padam at [facility] stating their contract with [facility] is not suitable at this time so [facility] is not able to accept as [facility] haven't been paying them. SW called referral line for TCU and left message regarding referral. SW waiting for call back. Original Note: Social Work Note RN ROSIBEL Hagan updated this worker that pt is agreeable to [facility] as first choice and TCU as second choice for SNF. SW faxed referral to [facility] and wrote on fax coversheet that PT/OT is not available at this time. SW placed a call to Padma at [facility] and left her a message regarding referral and also left message informing her that PT/OT is not available at this time, pt is on one wound vac, and pt may be on IV antibiotics but not confirmed at this time. SW waiting for call back. RN states pt does currently have PICC Line in. JAGDEEP faxed referral to [facility]. Plan: [facility] pending acceptance and pre-cert Digna Palumbo ALARM INSTALLER, STUDENT SERVICES ADVISOR
--- NOTE | 2019-01-07 13:36 | PCM.HP.ID ---
Reason for Consult: Infected wounds of her lower extremities Consulted by: Dr. Hubbard History of Present Illness: The patient is a 73 year old F [] Is a very pleasant 33-year-old white female with a history of diet-controlled diabetes mellitus, obesity, previous falls with wounds in her scalp area in the recent past and was discharged to transitional care unit recently. Patient is readmitted because of a fall at home that occurred roughly 2 to 3 weeks ago and she developed wounds in her lower extremities. Patient was taken to surgery yesterday for debridement of her wounds. Operative report reviewed. Patient is currently stable postop. She has wound vacs in place in both of her legs. I did have an opportunity to look at the photos of the wounds when the wound VAC was changed earlier today. No fevers or chills. Patient is tolerating meropenem well. No gastrointestinal distress or cardiopulmonary symptoms. - Medical History Past Medical History (Chronic Problems): Chronic Problems (Last Updated 01/04/19 @ 17:12 by Kary Monk MD) Bilateral lower extremity edema (Chronic) Open wound of right knee (Chronic) Traumatic,penetratiung with fat layer exposed. Essential hypertension (Chronic) Type 2 diabetes mellitus (Chronic) Venous insufficiency of both lower extremities (Chronic) Diastolic CHF (Chronic) Iron deficiency anemia (Chronic) etiology unknown Ulcer of right lower extremity with fat layer exposed (Chronic) Ulcer of right foot with fat layer exposed (Chronic) Ulcer of left lower extremity with fat layer exposed (Chronic) PVD (peripheral vascular disease) (Chronic) Presence of stent in coronary artery (Chronic ~08/29/12) PTCA/stent to CX; PTCA/Stent PTCA/stent to prox RCA 05/06; PTCA/LILY in mid to distal RCA 08/29/12 Atherosclerotic heart disease of [place] coronary artery without angina pectoris (Chronic) PTCA/stent to CX; PTCA/Stent PTCA/stent to prox RCA 05/06; PTCA/LILY in mid to distal RCA 08/29/12; CABG x2 ARREGUIN tp LAD and SVG to OM2 01/02/11 S/P CABG (coronary artery bypass graft) (Chronic ~01/02/11) CABG x2 ARREGUIN tp LAD and SVG to OM2 01/02/11 Paroxysmal atrial fibrillation (Chronic) Hyperlipidemia (Chronic) Allergies/Adverse Reactions: Allergies codeine Allergy (Unknown, Verified 01/04/19 12:10) Hives cefazolin Allergy (Verified 01/04/19 12:10) Rash ciprofloxacin [From Cipro] Allergy (Verified 01/04/19 12:10) Hives ciprofloxacin HCl [From Cipro] Allergy (Verified 01/04/19 12:10) Hives Latex, Natural Rubber Allergy (Verified 01/04/19 12:10) Rash Penicillins [PCN] Allergy (Verified 01/04/19 12:10) Hives vancomycin Allergy (Verified 01/04/19 12:10) Angioedema adhesive tape Adverse Reaction (Verified 01/04/19 12:10) Rash Home Medications: Ambulatory Orders Medication Instructions Recorded Amiodarone HCl 200 mg PO DAILY 04/09/18 Duloxetine HCl 60 mg PO DAILY 04/09/18 Magnesium Oxide [Mag-Ox 400] 400 mg PO BID 04/09/18 Metoprolol Tartrate [Lopressor 50 mg PO BID 04/09/18 (beta man)] Pantoprazole Sodium [Protonix] 40 mg PO DAILY 04/09/18 Rivaroxaban [Xarelto] 15 mg PO DAILY 04/09/18 Docusate Sodium 100 mg PO DAILY PRN PRN 05/22/18 Ergocalciferol (Vitamin D2) 50,000 unit PO QWEEK 05/22/18 [Vitamin D2] Donepezil HCl 5 mg PO DAILY 08/19/18 Potassium Chloride [Klor-Con M20] 20 meq PO BID 08/19/18 Furosemide [Lasix] 60 mg PO DAILY #1 tab 08/23/18 ferrous sulfate 325 mg (65 mg 325 mg PO DAILY 09/25/18 iron) tablet,delayed release gabapentin 300 mg capsule 600 mg PO BID cap 09/25/18 budesonide 180 mcg/actuation 1 inh INHALATION BID PRN inhaler 11/18/18 breath activated powder inhaler Albuterol Sulfate [Albuterol 8.5 gm IH PRN PRN 12/13/18 Sulfate Hfa] Amlodipine [Norvasc] 2.5 mg PO DAILY 12/13/18 Silver/Hydrocolloid Dressing 1 ea TP QODAY 01/04/19 [Aquacel-Ag W-Hydrofiber Dress] hydrALAZINE [Apresoline] 50 mg GT TID 01/04/19 metroNIDAZOLE [Flagyl] 500 mg PO TID 01/04/19 - Social History SMOKING STATUS:: Former smoker Review of Systems Comment: Noncontributory Vital Signs Temp Pulse Resp BP Pulse Ox 98.3 F 69 16 132/57 H 94 01/07/19 09:15 01/07/19 09:18 01/07/19 09:15 01/07/19 09:15 01/07/19 09:15 Oxygen Flow Rate (L/min) 1 Oxygen Delivery Method Nasal Cannula Weight: 92.3 kg Body Mass Index (BMI) 39.7 Finger Stick Blood Glucose 91 Microbiology Past 72 Hours 01/07/19 11:30 Stool Occult Blood ([place]) - Final Stool Occult Blood Positive 01/06/19 11:57 Gram Stain - Final Biopsy - Leg, Right Wound Culture - 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 01/04/19 17:45 Gram Stain - Final Wound - Leg, Right Wound Culture - Final Pseudomonas aeroginosa Klebsiella pneumoniae sp pneum Laboratory Tests Past 24 Hrs 01/04/19 01/06/19 01/07/19 17:20 21:20 07:24 WBC 11.0 RBC 3.30 L Hgb 10.2 L 9.5 L Hct 33.7 L 30.6 L MCV 92.7 MCH 28.8 MCHC 31.0 L RDW Std Deviation 58.8 H RDW Coeff of Carissa 17.7 H Plt Count 279 MPV 9.7 Immature Gran % (Auto) 0.800 Neut % (Auto) 75.7 H Lymph % (Auto) 12.0 L Stanley % (Auto) 9.1 Eos % (Auto) 2.2 Baso % (Auto) 0.2 Absolute Neuts (auto) 8.4 H Absolute Lymphs (auto) 1.33 Nucleated RBC % 0 Retic Count 3.73 H Immature Retic Fraction 36.10 H Retic Hgb Equivalent 25.3 L Sodium Potassium Chloride Carbon Dioxide Anion Gap BUN Creatinine Estim Creat Clear Calc Est GFR (MDRD) Af Amer Est GFR (MDRD) Non-Af BUN/Creatinine Ratio Glucose Calcium Total Bilirubin AST ALT Alkaline Phosphatase Total Protein Albumin Globulin Albumin/Globulin Ratio Crossmatch See Detail 01/07/19 07:24 WBC RBC Hgb Hct MCV MCH MCHC RDW Std Deviation RDW Coeff of Carissa Plt Count MPV Immature Gran % (Auto) Neut % (Auto) Lymph % (Auto) Stanley % (Auto) Eos % (Auto) Baso % (Auto) Absolute Neuts (auto) Absolute Lymphs (auto) Nucleated RBC % Retic Count Immature Retic Fraction Retic Hgb Equivalent Sodium 142 Potassium 4.1 Chloride 107 Carbon Dioxide 32.0 Anion Gap 3 L BUN 17 Creatinine 1.04 H Estim Creat Clear Calc 34.09 Est GFR (MDRD) Af Amer 67 Est GFR (MDRD) Non-Af 55 L BUN/Creatinine Ratio 16.3 Glucose 85 Calcium 8.3 L Total Bilirubin 0.60 AST 10 L ALT 12 L Alkaline Phosphatase 61 Total Protein 4.8 L Albumin 2.0 L Globulin 2.8 Albumin/Globulin Ratio 0.7 L Crossmatch - Other Studies Radiology: [] Other Studies: [] Route of nutrition/ use of supplements: [] Nutritional Intake: [] IV Site: [] [place] Catheter: [] Patient is alert does not appear toxic lungs are clear heart exam S1-S2 abdomen soft nontender wound VAC in place in both of her legs. - Assessment/Plan Antibiotics: [] Assessment/Plan: [] Infected hematoma/wounds of the lower extremities. Intraoperative cultures growing gram-negative rods with final identification pending. Continue meropenem. Continue supportive care local wound care.
--- NOTE | 2019-01-07 13:48 | PCM.PN.HOSP ---
<Donn Reinoso - Last Filed: 01/07/19 13:48> Reason for Visit: BL LE wounds, nonhealing Subjective: Patient with significant pain this morning. Wound VAC placed this morning. No fevers or chills. No cough or shortness of breath. No nausea or vomiting. Patient agreeable to chcf placement. Vitals/I&O's: Vital Signs Temp Pulse Resp BP Pulse Ox 98.3 F 63 16 132/57 H 94 01/07/19 09:15 01/07/19 11:58 01/07/19 09:15 01/07/19 09:15 01/07/19 09:15 Oxygen Flow Rate (L/min) 1 Oxygen Delivery Method Nasal Cannula Weight: 203 lb 7.787 oz Body Mass Index (BMI) 39.7 Finger Stick Blood Glucose 91 Intake and Output for Last 24 Hours 01/05/19 01/06/19 01/07/19 23:59 23:59 23:59 Intake Total 1329.23 / 1529.23 2568.00 / 2568.00 674.0 / 674.0 Output Total 500 / 650 950 / 950 600 / 600 Balance 829.23 / 879.23 1618.00 / 1618.00 74.0 / 74.0 General: Alert, Oriented x3, Cooperative HEENT: Atraumatic, PERRLA, EOMI, Normocephalic Neck: Supple, No JVD, Negative Carotid Bruits Lungs: Clear to auscultation, Normal air movement Cardiovascular: Regular rate, No murmurs Abdomen: Bowel Sounds Present, Soft, Non Tender Extremities: No edema, Capillary Refill Less than 3 Seconds, - - Wound is dressed appropriately Skin: No rashes, No breakdown Musculoskeletal: No Tenderness to Palpation of Joints or Extremities Neurological: Cranial nerves II-XII grossly intact Psych/Mental Status: Normal Affect, Appropriate Microbiology Past 72 Hours 01/07/19 11:30 Stool Stool Occult Blood ([place]) - Final Occult Blood Positive 01/06/19 11:57 Biopsy - Leg, Right Gram Stain - Final 01/06/19 11:57 Biopsy - Leg, Right Wound Culture - Preliminary GNR lactose intern 01/06/19 11:57 Biopsy - Leg, Right Gram Stain - Final 01/06/19 11:57 Biopsy - Leg, Right Wound Culture - Preliminary GNR lactose intern Gram negative james 01/06/19 11:57 Biopsy - Tissue Gram Stain - Final 01/06/19 11:57 Biopsy - Tissue Wound Culture - Preliminary GNR lactose intern 01/05/19 06:35 Urine, Clean Catch Urine Culture - Preliminary Culture exhibits no growth. 01/04/19 17:45 Wound - Leg, Right Gram Stain - Final 01/04/19 17:45 Wound - Leg, Right Wound Culture - Final Pseudomonas aeroginosa Klebsiella pneumoniae sp pneum Laboratory Results 01/04/19 17:20: Crossmatch See Detail 01/06/19 13:49: POC Glucose 91 01/06/19 21:20: Hgb 10.2 L, Hct 33.7 L 01/07/19 07:24: WBC 11.0, RBC 3.30 L, Hgb 9.5 L, Hct 30.6 L, MCV 92.7, MCH 28.8, MCHC 31.0 L, RDW Std Deviation 58.8 H, RDW Coeff of Carissa 17.7 H, Plt Count 279, MPV 9.7, Immature Gran % (Auto) 0.800, Neut % (Auto) 75.7 H, Lymph % (Auto) 12.0 L, [place] % (Auto) 9.1, Eos % (Auto) 2.2, Baso % (Auto) 0.2, Absolute Neuts (auto) 8.4 H, Absolute Lymphs (auto) 1.33, Nucleated RBC % 0, Retic Count 3.73 H, Immature Retic Fraction 36.10 H, Retic Hgb Equivalent 25.3 L 01/07/19 07:24: Sodium 142, Potassium 4.1, Chloride 107, Carbon Dioxide 32.0, Anion Gap 3 L, BUN 17, Creatinine 1.04 H, Estim Creat Clear Calc 34.09, Est GFR (MDRD) Af Amer 67, Est GFR (MDRD) Non-Af 55 L, BUN/Creatinine Ratio 16.3, Glucose 85, Calcium 8.3 L, Total Bilirubin 0.60, AST 10 L, ALT 12 L, Alkaline Phosphatase 61, Total Protein 4.8 L, Albumin 2.0 L, Globulin 2.8, Albumin/Globulin Ratio 0.7 L Current Medications Acetaminophen (Tylenol) 650 mg PO Q6H PRN PRN PRN Reason: Pain Score 1-3/Temp > 100.7 F Last Admin: 01/06/19 09:15 Dose: 650 mg Documented by: Albuterol Sulfate (Ventolin Aerosols) 2.5 mg INHALATION Q4H PRN PRN PRN Reason: Shortness of breath, wheezing Amiodarone HCl (Cordarone) 200 mg PO DAILY [facility] Last Admin: 01/07/19 09:18 Dose: 200 mg Documented by: Amlodipine Besylate (Norvasc) 2.5 mg PO DAILY [facility] Last Admin: 01/07/19 09:17 Dose: 2.5 mg Documented by: Budesonide (Pulmicort Aerosol) 0.5 mg INHALATION Q12H.RT [facility] Last Admin: 01/07/19 07:12 Dose: 0.5 mg Documented by: Diphenhydramine HCl (Benadryl) 25 mg PO TID PRN PRN PRN Reason: Itching, hives Docusate Sodium (Colace) 100 mg PO DAILY PRN PRN PRN Reason: Constipation Last Admin: 01/07/19 09:23 Dose: 100 mg Documented by: Donepezil HCl (Aricept) 5 mg PO QHS [facility] Last Admin: 01/06/19 21:52 Dose: 5 mg Documented by: Duloxetine HCl (Cymbalta) 60 mg PO DAILY [facility] Last Admin: 01/07/19 09:18 Dose: 60 mg Documented by: [facility] Last Admin: 01/07/19 09:17 Dose: 325 mg Documented by: Furosemide (Lasix) 60 mg PO DAILY [facility] Last Admin: 01/07/19 09:18 Dose: 60 mg Documented by: [facility]ap[facility]ontin) [facility] Last Admin: 01/07/19 09:17 Dose: 300 mg Documented by: Hydralazine HCl (Apresoline) 50 mg PO TID [facility] Last Admin: 01/07/19 05:07 Dose: 50 mg Documented by: Meropenem 1 gm/ Sodium (Chloride) 120 mls @ 33 mls/hr IV Q12 [facility] Last Admin: 01/07/19 09:24 Dose: 33 mls/hr Documented by: Sodium Chloride () 250 mls @ 15 mls/hr IV .[id number] PRN PRN Reason: Saline Flush Last Infusion: 01/07/19 09:27 Dose: 0 mls/hr Documented by: Sodium Chloride () 500 mls @ 15 mls/hr IV PRN PRN PRN Reason: Blood Transfusion Last Infusion: 01/06/19 12:30 Dose: Infused Documented by: Magnesium Oxide (Mag-Ox 400) 400 mg PO BID [facility] Last Admin: 01/07/19 09:17 Dose: 400 mg Documented by: Metoprolol Tartrate (Lopressor (Beta Tommy)) 50 mg PO BID [facility] Last Admin: 01/07/19 09:18 Dose: 50 mg Documented by: Ondansetron HCl (Zofran) 4 mg IV Q8H PRN PRN PRN Reason: NAUSEA/VOMITING Oxycodone HCl (Oxyir) 5 mg PO Q4H PRN PRN PRN Reason: Pain Score 4-5/10 Last Admin: 01/07/19 07:34 Dose: 5 mg Documented by: Pantoprazole Sodium (Protonix) 40 mg PO DAILY [facility] Last Admin: 01/07/19 09:17 Dose: 40 mg Documented by: Sodium Chloride () 10 - 40 ml IV UD PRN PRN Reason: SALINE FLUSH Last Admin: 01/06/19 12:59 Dose: 10 ml Documented by: STROKE Vital Signs/Narrative: Vital Signs Pulse 01/07/19 11:58 63 Medical Necessity - Tobacco Use Smoking Status: Former smoker Assessment/Plan 1. Right lower extremity surrounding cellulitis, infected hematoma - history of wounds with Pseudomonas and enterococcus. NO vanc 2/2 hx angioedema. Allergic to PCN, cipro. Continue clindamycin and meropenem. Leukocytosis resolved. No fever. Dr. Strange following. Recent admission to [facility] after fall approximately 1 week prior. Consult ID. Urinalysis positive, send urine culture, possibly wound contaminated with urine. MRSA, MSSA are negative. -Wound cultures showing Pseudomonas and Klebsiella -BL LE debridement POD#1. -Wound vac in place. 2. Iron deficiency anemia with melanotic stools - xarelto held. S/p T/C 1 unit PRBC, Hgb 7.8-->8.3. Platelets normal. Continue iron. Stool occult blood positive. -2 more units PRBC preop today. -If hgb remains stable will refer to Gen surg for o/p workup. -Continue PPI. 3. Hx LE venous and arterial disease - needs outpatient follow up with wound care. Arterial study in 2017 show arterial calcification ([place]). 4. CAD with prior stent, CABG - on beta tommy as o/p, no asa/satin/renetta. 5. PAfib - rate controlled. On amio, metoprolol. Xarelto stopped for GI bleed. 6. Hx chronic diastolic congestive heart failure-no acute exacerbation - continue home lasix. 7. Hypertension - mildly elevated 8. Hyperlipidemia - not on statin therapy 9. GERD - ppi 10. Hx dementia - on aricept 11. Lethargy - decrease gabapentin. 12. LAURITA - not on home CPAP. 13. Restrictive airway dz - recent PFTs per Dr. Pearson - continue aerosols. 14. 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 DVT prophylaxis:SCDs - concern for GI bleed. Discharge planning: SNF placement. This patient was seen by Donn Reinoso PA-C under the supervision of Doctor Stveie. <Preston Hubbard - Last Filed: 01/07/19 16:03> Reason for Visit: Multiple, 3 ulcers on the bilateral lower extremities Subjective: Patient had operative debridement of bilateral lower extremity, 2 excisional debridement on right lower extremity and one on left lower extremity. No postop fever or chills. Wound VAC placed in the morning. Vitals/I&O's: Vital Signs Temp Pulse Resp BP Pulse Ox 98.3 F 63 16 132/57 H 94 01/07/19 09:15 01/07/19 11:58 01/07/19 09:15 01/07/19 09:15 01/07/19 09:15 Oxygen Flow Rate (L/min) 1 Oxygen Delivery Method Nasal Cannula Weight: 203 lb 7.787 oz Body Mass Index (BMI) 39.7 Finger Stick Blood Glucose 91 Intake and Output for Last 24 Hours 01/05/19 01/06/19 01/07/19 23:59 23:59 23:59 Intake Total 1329.23 / 1529.23 2568.00 / 2568.00 674.0 / 674.0 Output Total 500 / 650 950 / 950 600 / 600 Balance 829.23 / 879.23 1618.00 / 1618.00 74.0 / 74.0 General: Alert, Oriented x3, Cooperative HEENT: Atraumatic, PERRLA, EOMI, Normocephalic Neck: Supple, No JVD, Negative Carotid Bruits, Negative Hepatojugular Reflux Lungs: Clear to auscultation, No rhonchi, No wheeze, No rales, Diminished - Diminished in bilateral lung bases Cardiovascular: Regular rate, Regular Rhythm, Normal S1, Normal S2, No murmurs Abdomen: Bowel Sounds Present, Soft, Non Tender, Non-Distended Extremities: Capillary Refill Less than 3 Seconds, Diminished Peripheral Pulses - Bilateral ankle and foot. Popliteal is palpable bilaterally., - - Wound is dressed appropriately Discussed with the wound nurse. Patient has 2 excisional debridement on right lower extremity and one on left lower extremity. Skin: No rashes, No breakdown Musculoskeletal: No Tenderness to Palpation of Joints or Extremities, Arthritic Changes Neurological: Cranial nerves II-XII grossly intact, Deep Tendon Reflexes 2+/4 and Symmetrical, Neuro grossly intact Psych/Mental Status: Normal Affect, Appropriate Microbiology Past 72 Hours 01/07/19 11:30 Stool Stool Occult Blood ([place]) - Final Occult Blood Positive 01/06/19 11:57 Biopsy - Leg, Right Gram Stain - Final 01/06/19 11:57 Biopsy - Leg, Right Wound Culture - Preliminary GNR lactose intern 01/06/19 11:57 Biopsy - Leg, Right Gram Stain - Final 01/06/19 11:57 Biopsy - Leg, Right Wound Culture - Preliminary GNR lactose intern Gram negative james 01/06/19 11:57 Biopsy - Tissue Gram Stain - Final 01/06/19 11:57 Biopsy - Tissue Wound Culture - Preliminary GNR lactose intern 01/05/19 06:35 Urine, Clean Catch Urine Culture - Preliminary Culture exhibits no growth. 01/04/19 17:45 Wound - Leg, Right Gram Stain - Final 01/04/19 17:45 Wound - Leg, Right Wound Culture - Final Pseudomonas aeroginosa Klebsiella pneumoniae sp pneum Laboratory Results 01/06/19 21:20: Hgb 10.2 L, Hct 33.7 L 01/07/19 07:24: WBC 11.0, RBC 3.30 L, Hgb 9.5 L, Hct 30.6 L, MCV 92.7, MCH 28.8, MCHC 31.0 L, RDW Std Deviation 58.8 H, RDW Coeff of Carissa 17.7 H, Plt Count 279, MPV 9.7, Immature Gran % (Auto) 0.800, Neut % (Auto) 75.7 H, Lymph % (Auto) 12.0 L, [place] % (Auto) 9.1, Eos % (Auto) 2.2, Baso % (Auto) 0.2, Absolute Neuts (auto) 8.4 H, Absolute Lymphs (auto) 1.33, Nucleated RBC % 0, Retic Count 3.73 H, Immature Retic Fraction 36.10 H, Retic Hgb Equivalent 25.3 L 01/07/19 07:24: Sodium 142, Potassium 4.1, Chloride 107, Carbon Dioxide 32.0, Anion Gap 3 L, BUN 17, Creatinine 1.04 H, Estim Creat Clear Calc 34.09, Est GFR (MDRD) Af Amer 67, Est GFR (MDRD) Non-Af 55 L, BUN/Creatinine Ratio 16.3, Glucose 85, Calcium 8.3 L, Total Bilirubin 0.60, AST 10 L, ALT 12 L, Alkaline Phosphatase 61, Total Protein 4.8 L, Albumin 2.0 L, Globulin 2.8, Albumin/Globulin Ratio 0.7 L Current Medications Acetaminophen (Tylenol) 650 mg PO Q6H PRN PRN PRN Reason: Pain Score 1-3/Temp > 100.7 F Last Admin: 01/06/19 09:15 Dose: 650 mg Documented by: Albuterol Sulfate (Ventolin Aerosols) 2.5 mg INHALATION Q4H PRN PRN PRN Reason: Shortness of breath, wheezing Amiodarone HCl (Cordarone) 200 mg PO DAILY [facility] Last Admin: 01/07/19 09:18 Dose: 200 mg Documented by: Amlodipine Besylate (Norvasc) 2.5 mg PO DAILY [facility] Last Admin: 01/07/19 09:17 Dose: 2.5 mg Documented by: Budesonide (Pulmicort Aerosol) 0.5 mg INHALATION Q12H.RT [facility] Last Admin: 01/07/19 07:12 Dose: 0.5 mg Documented by: Diphenhydramine HCl (Benadryl) 25 mg PO TID PRN PRN PRN Reason: Itching, hives Docusate Sodium (Colace) 100 mg PO DAILY PRN PRN PRN Reason: Constipation Last Admin: 01/07/19 09:23 Dose: 100 mg Documented by: Donepezil HCl (Aricept) 5 mg PO QHS [facility] Last Admin: 01/06/19 21:52 Dose: 5 mg Documented by: Duloxetine HCl (Cymbalta) 60 mg PO DAILY [facility] Last Admin: 01/07/19 09:18 Dose: 60 mg Documented by: Ferrous Sulfate ([facility] Sulfate) [facility] Last Admin: 01/07/19 09:17 Dose: 325 mg Documented by: Furosemide (Lasix) 60 mg PO DAILY [facility] Last Admin: 01/07/19 09:18 Dose: 60 mg Documented by: Gabapentin ([facility]ontin) [facility] Last Admin: 01/07/19 09:17 Dose: 300 mg Documented by: Hydralazine HCl (Apresoline) 50 mg PO TID [facility] Last Admin: 01/07/19 15:06 Dose: Not Given Documented by: Meropenem 1 gm/ Sodium (Chloride) 120 mls @ 33 mls/hr IV Q12 [facility] Last Admin: 01/07/19 09:24 Dose: 33 mls/hr Documented by: Sodium Chloride () 250 mls @ 15 mls/hr IV .[id number] PRN PRN Reason: Saline Flush Last Infusion: 01/07/19 09:27 Dose: 0 mls/hr Documented by: Sodium Chloride () 500 mls @ 15 mls/hr IV PRN PRN PRN Reason: Blood Transfusion Last Infusion: 01/06/19 12:30 Dose: Infused Documented by: Magnesium Oxide (Mag-Ox 400) 400 mg PO BID [facility] Last Admin: 01/07/19 09:17 Dose: 400 mg Documented by: Metoprolol Tartrate (Lopressor (Beta Tommy)) 50 mg PO BID [facility] Last Admin: 01/07/19 09:18 Dose: 50 mg Documented by: Ondansetron HCl (Zofran) 4 mg IV Q8H PRN PRN PRN Reason: NAUSEA/VOMITING Oxycodone HCl (Oxyir) 5 mg PO Q4H PRN PRN PRN Reason: Pain Score 4-5/10 Last Admin: 01/07/19 15:10 Dose: 5 mg Documented by: Pantoprazole Sodium (Protonix) 40 mg PO DAILY [facility] Last Admin: 01/07/19 09:17 Dose: 40 mg Documented by: Sodium Chloride () 10 - 40 ml IV UD PRN PRN Reason: SALINE FLUSH Last Admin: 01/06/19 12:59 Dose: 10 ml Documented by: STROKE Vital Signs/Narrative: Vital Signs Pulse 01/07/19 11:58 63 Assessment/Plan This patient was seen in conjunction with Donn RUIZ. I have independently interviewed and examined the patient and reviewed pertinent history, examination findings, laboratory and plan of management. I have reviewed the note and agree with the documented findings with the few additional points. In brief, patient is admitted for multiple active medical diagnoses: 1. Right lower extremity surrounding cellulitis with repaired wound after laceration 2 weeks ago: Previous cultures were reviewed. Previous wound culture from scalp on 12/09 shows Enterococcus faecalis, staph epidermidis and corynebacterium. Urine culture on September 2018 E. coli. Continue clindamycin and meropenem. She completed the treatment with linezolid and Flagyl for posterior scalp infected wound after trauma on 12/21/2018 as per ID recommendation. She developed angioedema on vancomycin on 12/14. Consult ID and Dr. Strange. 01/06: Wound culture on 01/04 shows gram-negative james possible Pseudomonas and lactose intern. Patient seen by Dr. Strange. Was taken for OR for excisional debridement of infected hematoma with overlying skin necrosis of right anterolateral leg, right proximal posterior medial leg and left proximal posterior medial leg. Discussed with the ID. Currently on clindamycin and meropenem. 01/07: Preop wound culture shows Pseudomonas and Klebsiella pneumonia. Tissue biopsy cultures are pending. ID consult note reviewed. Continue meropenem. Clindamycin discontinued. Wound VAC was placed. 2. Iron deficiency anemia with melanotic stool: Xarelto is being held. Had 1 unit of transfusion. Monitor H&H. His last 28.3. 01/06: H&H 7.8/25 today. H&H in evening today 01/07: Hemoglobin dropped to 10.2/33 in the evening. On ferrous sulfate. Patient had IV Venofer on 01/06. Stool for occult blood positive. In a.m. H&H 9.5/30.6. Hold Xarelto. 3. Cardiac conditions: Coronary artery status post CABG and stent, chronic diastolic heart failure, peripheral vascular disease, paroxysmal A. fib: On amiodarone metoprolol. Xarelto is on hold. 01/06: Mild hypotension after surgery. Holding parameters for antihypertensive medications ordered. 01/07: Blood pressure is controlled and is stable. She had normal pharmacological myocardial perfusion stress test with preserved EF on May 2017. Last echo in April 2018 reported as EF 65% with a stage I diastolic dysfunction, no regional wall motion abnormalities. LA moderately enlarged. Normal right atrium. Normal RV size and systolic function. Mild 1+ eccentric AI. Last EKG on 31 October 2018 shows normal sinus rhythm at 63 bpm. 4.Diabetes mellitus type 2 with diabetic neuropathy: A1c is 5.4 on 12/13. Glucose on BMP 106. 01/07: Glucose is well controlled. Other comorbidities include trigeminal neuralgia, multiple sclerosis, and chronic venous insufficiency, obstructive sleep apnea and restrictive airway disease chronic degenerative joint disease, impaired mobility and gait instability on walker: And follows Dr. Pearson. 8 DVT prophylaxis: INR was 2.1 six days ago. Hold Xarelto for now I have discussed my assessment with Donn RUIZ and orders have been reviewed. Code Visit Inpatient E&M: 35843 Subs Hosp L3
--- NOTE | 2019-01-07 15:04 | CASEMGMT ---
Social Work Note SW received message from Urvashi with TCU stating TCU has no beds available and there is currently one patient on the waitlist. JAGDEEP met with pt and introduced self and role at [facility]. SW updated pt that [facility] is not able to accept pt due to insurances and TCU doesn't have any beds available. Pt asked about [facility]. JAGDEEP informed pt that it doesn't appear [facility] is on list of accepted SNF with [employer] but this worker can call to confirm if they accept insurance or notes. Pt states understanding, states if [facility] is not able to accept then a referral can be made to [facility]. JAGDEEP placed a call to Quiana at [facility] and Quiana states they do accept [employer] insurance. JAGDEEP provided referral and faxed referral. 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
--- NOTE | 2019-01-07 15:28 | CHAPLAIN ---
patient was unavailable at time of attempted visit
[2019-01-07] MEDS: Donepezil HCl 5 MG Tablet PO (21:48)
[2019-01-07] MEDS: 0.9% Saline Lock 10 ML Syringe IV ×2 (21:49→21:51)
--- NOTE | 2019-01-07 22:19 | PCM.PN.SRG ---
Subjective: Postop #1 Patient is resting comfortably. VAC applied today. - Physical Exam Vitals/I&O's: Vital Signs Temp Pulse Resp BP Pulse Ox 97.8 F 68 16 113/45 L 97 01/07/19 15:00 01/07/19 21:48 01/07/19 15:00 01/07/19 21:48 01/07/19 15:00 Oxygen Flow Rate (L/min) 1 Oxygen Delivery Method Nasal Cannula Weight: 203 lb 7.787 oz Body Mass Index (BMI) 39.7 Finger Stick Blood Glucose 91 Intake and Output for Last 24 Hours 01/05/19 01/06/19 01/07/19 23:59 23:59 23:59 Intake Total 1329.23 / 1529.23 2568.00 / 2568.00 1326.50 / 1326.50 Output Total 500 / 650 950 / 950 850 / 850 Balance 829.23 / 879.23 1618.00 / 1618.00 476.50 / 476.50 General: Alert, Oriented x3 HEENT: PERRLA, EOMI Oral: Moist Mucosa Neck: Supple Abdomen: Soft, Non-Distended Skin: Ulcer/ Wound - bilateral leg wounds are clean. No active bleeding seen. VAC applied today. Neurological: Cranial nerves II-XII grossly intact Psych/Mental Status: Normal Affect, Appropriate Microbiology Past 72 Hours 01/07/19 11:30 Stool Stool Occult Blood ([place]) - Final Occult Blood Positive 01/06/19 11:57 Biopsy - Leg, Right Gram Stain - Final 01/06/19 11:57 Biopsy - Leg, Right Wound Culture - Preliminary GNR lactose basic combatant swimmer 01/06/19 11:57 Biopsy - Leg, Right Gram Stain - Final 01/06/19 11:57 Biopsy - Leg, Right Wound Culture - Preliminary GNR lactose basic combatant swimmer Gram negative james 01/06/19 11:57 Biopsy - Tissue Gram Stain - Final 01/06/19 11:57 Biopsy - Tissue Wound Culture - Preliminary GNR lactose basic combatant swimmer 01/05/19 06:35 Urine, Clean Catch Urine Culture - Preliminary Culture exhibits no growth. 01/04/19 17:45 Wound - Leg, Right Gram Stain - Final 01/04/19 17:45 Wound - Leg, Right Wound Culture - Final Pseudomonas aeroginosa Klebsiella pneumoniae sp pneum Laboratory Results 01/07/19 07:24: WBC 11.0, RBC 3.30 L, Hgb 9.5 L, Hct 30.6 L, MCV 92.7, MCH 28.8, MCHC 31.0 L, RDW Std Deviation 58.8 H, RDW Coeff of Carissa 17.7 H, Plt Count 279, MPV 9.7, Immature Gran % (Auto) 0.800, Neut % (Auto) 75.7 H, Lymph % (Auto) 12.0 L, [place] % (Auto) 9.1, Eos % (Auto) 2.2, Baso % (Auto) 0.2, Absolute Neuts (auto) 8.4 H, Absolute Lymphs (auto) 1.33, Nucleated RBC % 0, Retic Count 3.73 H, Immature Retic Fraction 36.10 H, Retic Hgb Equivalent 25.3 L 01/07/19 07:24: Sodium 142, Potassium 4.1, Chloride 107, Carbon Dioxide 32.0, Anion Gap 3 L, BUN 17, Creatinine 1.04 H, Estim Creat Clear Calc 34.09, Est GFR (MDRD) Af Amer 67, Est GFR (MDRD) Non-Af 55 L, BUN/Creatinine Ratio 16.3, Glucose 85, Calcium 8.3 L, Total Bilirubin 0.60, AST 10 L, ALT 12 L, Alkaline Phosphatase 61, Total Protein 4.8 L, Albumin 2.0 L, Globulin 2.8, Albumin/Globulin Ratio 0.7 L Current Medications Acetaminophen (Tylenol) 650 mg PO Q6H PRN PRN PRN Reason: Pain Score 1-3/Temp > 100.7 F Last Admin: 01/06/19 09:15 Dose: 650 mg Documented by: Albuterol Sulfate (Ventolin Aerosols) 2.5 mg INHALATION Q4H PRN PRN PRN Reason: Shortness of breath, wheezing Amiodarone HCl (Cordarone) 200 mg PO DAILY [facility] Last Admin: 01/07/19 09:18 Dose: 200 mg Documented by: Amlodipine Besylate (Norvasc) 2.5 mg PO DAILY [facility] Last Admin: 01/07/19 09:17 Dose: 2.5 mg Documented by: Budesonide (Pulmicort Aerosol) 0.5 mg INHALATION Q12H.RT [facility] Last Admin: 12/03/19 19:12 Dose: 0.5 mg Documented by: Diphenhydramine HCl (Benadryl) 25 mg PO TID PRN PRN PRN Reason: Itching, hives Docusate Sodium (Colace) 100 mg PO DAILY PRN PRN PRN Reason: Constipation Last Admin: 01/07/19 09:23 Dose: 100 mg Documented by: Donepezil HCl (Aricept) 5 mg PO QHS [facility] Last Admin: 01/07/19 21:48 Dose: 5 mg Documented by: Duloxetine HCl (Cymbalta) 60 mg PO DAILY [facility] Last Admin: 01/07/19 09:18 Dose: 60 mg Documented by: [facility] Last Admin: 01/07/19 09:17 Dose: 325 mg Documented by: Furosemide (Lasix) 60 mg PO DAILY [facility] Last Admin: 01/07/19 09:18 Dose: 60 mg Documented by: Gabap[facility]in) [facility] Last Admin: 01/07/19 17:38 Dose: 300 mg Documented by: Hydralazine HCl (Apresoline) 50 mg PO TID [facility] Last Admin: 01/07/19 15:06 Dose: Not Given Documented by: Meropenem 1 gm/ Sodium (Chloride) 120 mls @ 33 mls/hr IV Q12 [facility] Last Admin: 01/07/19 21:48 Dose: 33 mls/hr Documented by: Sodium Chloride () 250 mls @ 15 mls/hr IV .[id number] PRN PRN Reason: Saline Flush Last Infusion: 01/07/19 21:53 Dose: 0 mls/hr Documented by: Sodium Chloride () 500 mls @ 15 mls/hr IV PRN PRN PRN Reason: Blood Transfusion Last Infusion: 01/06/19 12:30 Dose: Infused Documented by: Magnesium Oxide (Mag-Ox 400) 400 mg PO BID [facility] Last Admin: 01/07/19 21:49 Dose: 400 mg Documented by: Metoprolol Tartrate (Lopressor (Beta Tommy)) 50 mg PO BID [facility] Last Admin: 01/07/19 21:48 Dose: 50 mg Documented by: Ondansetron HCl (Zofran) 4 mg IV Q8H PRN PRN PRN Reason: NAUSEA/VOMITING Oxycodone HCl (Oxyir) 5 mg PO Q4H PRN PRN PRN Reason: Pain Score 4-5/10 Last Admin: 01/07/19 20:10 Dose: 5 mg Documented by: Pantoprazole Sodium (Protonix) 40 mg PO DAILY [facility] Last Admin: 01/07/19 09:17 Dose: 40 mg Documented by: Sodium Chloride () 10 - 40 ml IV UD PRN PRN Reason: SALINE FLUSH Last Admin: 01/07/19 21:51 Dose: 10 ml Documented by: Medical Necessity - Tobacco Use Smoking Status: Former smoker Assessment/Plan All Active Problems (Last Updated 01/04/19 @ 17:12 by Kary Monk MD) Traumatic hematoma of right lower leg with infection (Acute) Traumatic hematoma of left lower leg with infection (Acute) Cellulitis of right lower extremity (Acute) Cellulitis of left lower extremity (Acute) Accidental fall (Acute) Traumatic hematoma of multiple sites of lower extremity with infection (Acute) ASSESSMENT 1. Infected hematoma right anterolateral leg with overlying skin necrosis. 2. Infected hematoma right proximal posteromedial leg with overlying skin necrosis. 3. Infected hematoma left proximal posteromedial leg with overlying skin necrosis. 4. Cellulitis bilateral legs, slowly resolving. 4. Traumatic hematoma wound top of scalp at vertex with occipital extension, healing. 5. Hematoma top of scalp at vertex with occipital extension. 6. Accidental fall. 7. Diabetes mellitus. 8. Former smoker. 9. Anemia of chronic disease, acute on chronic. 10. residential use of anticoagulation - Xarelto. 11. s/p surgical preparation right anterolateral leg with incision and drainage and evacuation and excisional debridement infected hematoma with overlying skin necrosis (85.5 cm2) and surgical preparation right proximal posteromedial leg with incision and drainage and evacuation and excisional debridement infected hematoma with overlying skin necrosis (22.5 cm2) and surgical preparation left proximal posteromedial leg with incision and drainage and evacuation and excisional debridement infected hematoma with overlying skin necrosis (30 cm2). PLAN VAC applied today. Wounds are stable. No active bleeding seen. Operative cultures show Gram negative rods, Gram negative rods lactose basic combatant swimmer, Pseudomonas aeroginosa, and Klebsiella pneumoniae. She is currently on Meropenem. Prealbumin was 29.4 on 12/13/18. Encourage nutritional supplementation with protein to help the healing process. HgbA1c was 5.4 on 12/13/18. For elective skin grafts in the future, the HgbA1c needs to be less than 8. She is being evaluated for discharge to an EC. After discharge, followup at [facility]. If there is a plateau in the healing process, can proceed with delayed closure with skin grafting. Her Hgb has improved to 9.5 from 7.8. She received PRBC.
[2019-01-08] VITALS (14 sets, daily range): BP systolic 99–148; BP diastolic 45–66; PULSE 61–76; RESP 16–20; TEMP 36.6–37; O2SAT 91–96
[2019-01-08 04:50] LABS: Absolute Lymphocyte Count 1.51 X10^3/uL (0.83-4.51); Basophil# 0.02 X10^3/uL; Basophil% 0.2 % (0-1); Eosinophil# 0.35 X10^3/uL; Eosinophils% 3.9 % (0-5); Hemoglobin 10.2 g/dL (12.0-15.0); Lymphocyte # 1.51 X10^3/ul (4.0); Lymphocyte % 16.7 % (19-41); Mean Corpuscular Hgb 28.4 pg (27.0-32.0); Mean Corpuscular Volume 94.7 fL (81-99); Mean Platelet Vol. 9.7 fl (6.2-12.0); Monocyte# 1.03 X10^3/uL; Monocyte% 11.4 % (0-10); NRBC Flagged by Analyzer 0 % (0-5); Neutrophil # 6.04 X10^3/uL (2.7-7.7); Neutrophil % 66.9 % (47-70); Platelet Count 320 K/mm3 (150-450); RBC Distribution Width CV 17.4 % (11.6-14.6); Red Blood Count 3.59 M/mm3 (4.2-5.4)
[2019-01-08] MEDS: 0.9% Saline Lock 10 ML Syringe IV ×2 (05:39→10:05)
[2019-01-08] MEDS: Budesonide Respules 0.5 MG/2 ML AMPUL.NEB. INHALATION (07:18)
--- NOTE | 2019-01-08 09:47 | CASEMGMT ---
Addendum entered by Digna Palumbo 01/08/19 11:53: JAGDEEP received message from Quiana at [facility] stating pre-cert has been obtained and pt can discharge today if medically cleared. JAGDEEP updated SARA who states ID will need to confirm antibiotics before pt is able to discharge. JAGDEEP waiting for ID. Addendum entered by Digna Palumbo 01/08/19 10:04: JAGDEEP updated pt on acceptance to [facility] pending pre-cert. Original Note: Social Work Note JAGDEEP spoke with Quiana at [facility]. Quiana states that she is able to accept pt and has submitted for pre-cert. JAGDEEP updated Quiana that this worker is still waiting to confirm if pt will be on IV antibiotics or not but will update as soon as this worker knows. JAGDEEP placed a call to Monika in TCU and left message that pt will be going to different SNF due to no beds available in TCU. Plan: [facility] pending pre-cert Digna Palumbo ITALIAN TUTOR, CONVEYOR [employer]GER
[2019-01-08] MEDS: oxyCODONE 5 MG Tablet PO ×2 (09:59→14:06)
[2019-01-08] MEDS: DULoxetine Hcl 60 MG Capsule PO (10:00)
[2019-01-08] MEDS: Gabapentin 300 MG Capsule PO ×2 (10:00→17:00)
[2019-01-08] MEDS: Amiodarone 200 MG Tablet PO (10:00)
[2019-01-08] MEDS: Furosemide 40 MG Tablet 60 MG PO (10:00)
[2019-01-08] MEDS: Pantoprazole Sodium 40 MG Tablet PO (10:01)
[2019-01-08] MEDS: Metoprolol Tartrate 50 MG Tablet PO (10:01)
[2019-01-08] MEDS: amLODIPine 2.5 MG Tablet PO (10:01)
[2019-01-08] MEDS: Magnesium Oxide 400 MG Tablet PO (10:01)
[2019-01-08] MEDS: Ferrous Sulfate 325 MG Tablet PO (10:04)
[2019-01-08] MEDS: APIXABAN 2.5 MG TABLET PO (11:16)
--- NOTE | 2019-01-08 11:25 | PCM.EXTCARCO ---
- Diet 01/07/19 01:50 Diet: Cardiac/Low Cholesterol Type of Dietary Supplement:: Glucerna 1.5 emilio Is pt able to select menu?: Yes - Routine Orders/Code Status Suppository Type: Dulcolax 10mg Suppository Frequency: Daily PRN O2 Frequency: PRN Routine Lab Work: CBC - 2 days, BMP - 5 days Code Status: Full Code - Wound(s) RLE Wound Type: Hematoma LLE Wound Type: Hematoma R/POSTERIOR CALF Wound Type: Abrasion OCCIPAL /HEAD Wound Type: nearly healed laceration (now scabbed) L WRIST Wound Type: INFILTRATED IV SITE RFA Wound Type: bruising left medial lower leg Wound Type: Open Surgical Wound Dressing Change: applied KCI wound VAC right medial lower leg Wound Type: Open Surgical Wound Dressing Change: applied KCI wound VAC right anterolateral lower leg Wound Type: Open Surgical Wound Dressing Change: applied KCI wound VAC YEHUDA LOWER LEGS Wound Type: Surgical Incision - Therapies Physical Therapy: Eval and Treat Occupational Therapy: Eval and Treat - Problem/Diagnosis (1) Traumatic hematoma of multiple sites of lower extremity with infection Status: Acute Current Visit: Yes (2) Chronic GI bleeding Status: Chronic Current Visit: Yes (3) GERD (gastroesophageal reflux disease) Status: Chronic Current Visit: Yes (4) Dementia Status: Chronic Current Visit: Yes (5) Restrictive airway disease Status: Chronic Current Visit: Yes (6) LAURITA (obstructive sleep apnea) Status: Chronic Current Visit: Yes (7) Atherosclerotic heart disease of [place] coronary artery without angina pectoris Status: Chronic Comment: PTCA/stent to CX; PTCA/Stent PTCA/stent to prox RCA 05/06; PTCA/LILY in mid to distal RCA 08/29/12; CABG x2 ARREGUIN tp LAD and SVG to OM2 01/02/11 Current Visit: No (8) Diastolic CHF Status: Chronic Current Visit: No (9) Essential hypertension Status: Chronic Current Visit: No (10) Hyperlipidemia Status: Chronic Current Visit: No (11) Iron deficiency anemia Status: Chronic Comment: etiology unknown Current Visit: No (12) PVD (peripheral vascular disease) Status: Chronic Current Visit: No (13) Paroxysmal atrial fibrillation Status: Chronic Current Visit: No (14) Presence of stent in coronary artery Status: Chronic Comment: PTCA/stent to CX; PTCA/Stent PTCA/stent to prox RCA 05/06; PTCA/LILY in mid to distal RCA 08/29/12 Current Visit: No (15) S/P CABG (coronary artery bypass graft) Status: Chronic Comment: CABG x2 ARREGUIN tp LAD and SVG to OM2 01/02/11 Current Visit: No (16) Type 2 diabetes mellitus Status: Chronic Current Visit: No - Allergies/Procedures Done in Hospital Allergies/Adverse Reactions: Allergies codeine Allergy (Unknown, Verified 01/04/19 12:10) Hives cefazolin Allergy (Verified 01/04/19 12:10) Rash ciprofloxacin [From Cipro] Allergy (Verified 01/04/19 12:10) Hives ciprofloxacin HCl [From Cipro] Allergy (Verified 01/04/19 12:10) Hives Latex, Natural Rubber Allergy (Verified 01/04/19 12:10) Rash Penicillins [PCN] Allergy (Verified 01/04/19 12:10) Hives vancomycin Allergy (Verified 01/04/19 12:10) Angioedema adhesive tape Adverse Reaction (Verified 01/04/19 12:10) Rash Procedures: Wound Vac placement - Type of Care/Length of Stay Estimated LOS: Convalescent Care Less Than 30 days Type of Care Needed: Skilled Rehab Potential: Fair Prognosis: Fair - Additional Orders/Day of Discharge Day of Discharge: 01/08/19 - Dietary and Speech Recommendations Dietitian Recommendations/Changes: Rec Cardiac/Low Cholesterol: 1800 Calorie Controlled diet. Will discontinue Glucerna 1.5 at meals. - Follow Up Care Primary Care Physician: Octaviano Franco Chi, MD [Primary Care Provider] - Please follow up with your Primary Care Physician in: 1-2 weeks Please Follow Up With: Farhat Strange MD When: as directed Please Follow Up With: Wound care When: as directed Please Follow Up With: Erasto Betancur MD - Regarding anemia, hemeoccult + stools When: 1-2 weeks
--- NOTE | 2019-01-08 12:06 | PN.ID_ITS ---
Subjective: Patient is overall clinically stable tolerating meropenem well. No fevers had uneventful night. No gastrointestinal distress. Objective: Alert does not appear toxic lungs are clear heart exam S1-S2 abdomen is obese but soft. Wound VAC in place in both legs. - Physical Exam Vitals/I&O's: Vital Signs Temp Pulse Resp BP Pulse Ox 98.6 F 69 20 H 148/66 H 91 01/08/19 08:15 01/08/19 10:01 01/08/19 08:15 01/08/19 10:01 01/08/19 08:15 Oxygen Flow Rate (L/min) 1 Oxygen Delivery Method Nasal Cannula Weight: 92.3 kg Body Mass Index (BMI) 39.7 Finger Stick Blood Glucose 91 Intake and Output for Last 24 Hours 01/06/19 01/07/19 01/08/19 23:59 23:59 23:59 Intake Total 2568.00 / 2568.00 1326.50 / 1326.50 120 / 120 Output Total 950 / 950 850 / 1150 600 / 600 Balance 1618.00 / 1618.00 476.50 / 176.50 -480 / -480 Microbiology Past 72 Hours 01/06/19 11:57 Biopsy - Leg, Right Gram Stain - Final 01/06/19 11:57 Biopsy - Leg, Right Wound Culture - 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 01/07/19 11:30 Stool Stool Occult Blood ([place]) - Final Occult Blood Positive 01/05/19 06:35 Urine, Clean Catch Urine Culture - Preliminary Culture exhibits no growth. 01/04/19 17:45 Wound - Leg, Right Gram Stain - Final 01/04/19 17:45 Wound - Leg, Right Wound Culture - Final Pseudomonas aeroginosa Klebsiella pneumoniae sp pneum Laboratory Results 01/08/19 04:15: WBC 9.0, RBC 3.59 L, Hgb 10.2 L, Hct 34.0 L, MCV 94.7, MCH 28.4, MCHC 30.0 L, RDW Std Deviation 59.0 H, RDW Coeff of Carissa 17.4 H, Plt Count 320, MPV 9.7, Immature Gran % (Auto) 0.900, Neut % (Auto) 66.9, Lymph % (Auto) 16.7 L , [place] % (Auto) 11.4 H, Eos % (Auto) 3.9, Baso % (Auto) 0.2, Absolute Neuts (auto) 6.0, Absolute Lymphs (auto) 1.51, Nucleated RBC % 0 Current Medications Acetaminophen (Tylenol) 650 mg PO Q6H PRN PRN PRN Reason: Pain Score 1-3/Temp > 100.7 F Last Admin: 01/06/19 09:15 Dose: 650 mg Documented by: Albuterol Sulfate (Ventolin Aerosols) 2.5 mg INHALATION Q4H PRN PRN PRN Reason: Shortness of breath, wheezing Amiodarone HCl (Cordarone) 200 mg PO DAILY [facility] Last Admin: 01/08/19 10:00 Dose: 200 mg Documented by: Amlodipine Besylate (Norvasc) 2.5 mg PO DAILY [facility] Last Admin: 01/08/19 10:01 Dose: 2.5 mg Documented by: Apixaban (Eliquis) 2.5 mg PO BID [facility] Last Admin: 01/08/19 11:16 Dose: 2.5 mg Documented by: Budesonide (Pulmicort Aerosol) 0.5 mg INHALATION Q12H.RT [facility] Last Admin: 01/08/19 07:18 Dose: 0.5 mg Documented by: Diphenhydramine HCl (Benadryl) 25 mg PO TID PRN PRN PRN Reason: Itching, hives Docusate Sodium (Colace) 100 mg PO DAILY PRN PRN PRN Reason: Constipation Last Admin: 01/07/19 09:23 Dose: 100 mg Documented by: Donepezil HCl (Aricept) 5 mg PO QHS [facility] Last Admin: 01/07/19 21:48 Dose: 5 mg Documented by: Duloxetine HCl (Cymbalta) 60 mg PO DAILY [facility] Last Admin: 01/08/19 10:00 Dose: 60 mg Documented by: [facility] Admin: 01/08/19 10:04 Dose: 325 mg Documented by: Furosemide (Lasix) 60 mg PO DAILY [facility] Last Admin: 01/08/19 10:00 Dose: 60 mg Documented by: [facility]) [facility] Last Admin: 01/08/19 10:00 Dose: 300 mg Documented by: Hydralazine HCl (Apresoline) 50 mg PO TID [facility] Last Admin: 01/08/19 05:38 Dose: Not Given Documented by: Meropenem 1 gm/ Sodium (Chloride) 120 mls @ 33 mls/hr IV Q12 [facility] Last Admin: 01/08/19 10:04 Dose: 33 mls/hr Documented by: Sodium Chloride () 250 mls @ 15 mls/hr IV .[id number] PRN PRN Reason: Saline Flush Last Infusion: 01/08/19 01:27 Dose: 15 mls/hr Documented by: Sodium Chloride () 500 mls @ 15 mls/hr IV PRN PRN PRN Reason: Blood Transfusion Last Infusion: 01/06/19 12:30 Dose: Infused Documented by: Magnesium Oxide (Mag-Ox 400) 400 mg PO BID [facility] Last Admin: 01/08/19 10:01 Dose: 400 mg Documented by: Metoprolol Tartrate (Lopressor (Beta Tommy)) 50 mg PO BID [facility] Last Admin: 01/08/19 10:01 Dose: 50 mg Documented by: Ondansetron HCl (Zofran) 4 mg IV Q8H PRN PRN PRN Reason: NAUSEA/VOMITING Oxycodone HCl (Oxyir) 5 mg PO Q4H PRN PRN PRN Reason: Pain Score 4-5/10 Last Admin: 01/08/19 09:59 Dose: 5 mg Documented by: Pantoprazole Sodium (Protonix) 40 mg PO DAILY [facility] Last Admin: 01/08/19 10:01 Dose: 40 mg Documented by: Sodium Chloride () 10 - 40 ml IV UD PRN PRN Reason: SALINE FLUSH Last Admin: 01/08/19 10:05 Dose: 10 ml Documented by: Medical Necessity - Tobacco Use Smoking Status: Former smoker Route of nutrition/ use of supplements: [] Nutritional Intake: [] IV Site: [] [place] Catheter: [] - Assessment/Plan Infected hematoma status post surgical debridement and placement of wound VAC to each leg. Microbiological data reviewed. At this point to be reasonable to discharge the patient on parenteral meropenem 1 g IV every 8 hours through January 17. I did write the prescription.
--- NOTE | 2019-01-08 13:58 | CASEMGMT ---
Social Work Note SW received script for IV antibiotics. Physician updated. Pt is discharging to [facility] today. JAGDEEP faxed completed discharge paperwork to [facility] including transfer to extended care facility, signed medication list and any scripts. Original in SNF folder and copy on pt's chart. SW reviewed chart, pt was assist of 2 for transfers, does have dementia and periods of confusion and forgetfulness. JAGDEEP spoke with RN, pt can be transported via cot. JAGDEEP placed a call to [facility] and arranged transportation via cot for 4:00pm. Transportation form completed and placed on SNF folder and copy on pt's chart. JAGDEEP completed [facility] in [facility]. Original in SNF folder and copy on pt's chart. SW in to update pt, pt currently on phone with family. SW updated pt on discharge and transportation time. Pt states she will update her family. JAGDEEP updated RN on discharge and transportation time. JAGDEEP did place a call to pt's son Farhat and left message updating him on discharge and transportation time as well. JAGDEEP also placed a call to pt's home phone and spoke with pt's sister Monika and updated her on discharge and transportation time. Plan: Discharge to [facility] skilled today with [facility] transporting via cot at 4:00pm Digna Palumbo MSW, ORTHOTICS PROSTHETICS ASSISTANT
--- NOTE | 2019-01-08 14:55 | DS.PCM_ITS ---
<Donn Reinoso - Last Filed: 01/08/19 14:55> Discharge Date and Diagnosis - Problem List Patient Problems: Active and Suspected Problems (Last Updated 01/04/19 @ 17:12 by Kary Monk MD) Traumatic hematoma of multiple sites of lower extremity with infection (Acute) Date of Admission: 01/04/19 Date of Discharge: 01/08/19 - Primary Discharge Diagnosis Active and Suspected Problems (Last Updated 01/04/19 @ 17:12 by Kary Monk MD) Traumatic hematoma of multiple sites of lower extremity with infection (Acute) Debility with multiple falls Chronic iron deficiency anemia, chronic GI blood loss anemia - Secondary Discharge Diagnosis Chronic Problems (Last Updated 01/04/19 @ 17:12 by Kary Monk MD) Chronic GI bleeding (Chronic) GERD (gastroesophageal reflux disease) (Chronic) Dementia (Chronic) Restrictive airway disease (Chronic) LAURITA (obstructive sleep apnea) (Chronic) Bilateral lower extremity edema (Chronic) Open wound of right knee (Chronic) Traumatic,penetratiung with fat layer exposed. Essential hypertension (Chronic) Type 2 diabetes mellitus (Chronic) Venous insufficiency of both lower extremities (Chronic) Diastolic CHF (Chronic) Iron deficiency anemia (Chronic) etiology unknown Ulcer of right lower extremity with fat layer exposed (Chronic) Ulcer of right foot with fat layer exposed (Chronic) Ulcer of left lower extremity with fat layer exposed (Chronic) PVD (peripheral vascular disease) (Chronic) Presence of stent in coronary artery (Chronic ~08/29/12) PTCA/stent to CX; PTCA/Stent PTCA/stent to prox RCA 05/06; PTCA/LILY in mid to distal RCA 08/29/12 Atherosclerotic heart disease of [place] coronary artery without angina pectoris (Chronic) PTCA/stent to CX; PTCA/Stent PTCA/stent to prox RCA 05/06; PTCA/LILY in mid to distal RCA 08/29/12; CABG x2 ARREGUIN tp LAD and SVG to OM2 01/02/11 S/P CABG (coronary artery bypass graft) (Chronic ~01/02/11) CABG x2 ARREGUIN tp LAD and SVG to OM2 01/02/11 Paroxysmal atrial fibrillation (Chronic) Hyperlipidemia (Chronic) Hospital Course and Treatment Consultations [facility] 01/06/19 08:18 Consult: Onc/Wound/log marker Routine Comment: Reason for Consult:: bilateral legs/scalp wound Operations: - - I&D, evacuation, excisional debridement of infected hematomas Procedures: None Summary of Care Provided: Hospital course: The patient is a 73 year old F past medical history as above, most notably for recent admission to [facility] for traumatic hematoma, with subsequent discharge home, who present presented to to the ER with recurrent falls at home following that admission, recurrent hematomas to the bilateral lower extre mities. She appeared to have infected hematomas with surrounding cellulitis, had leukocytosis, and significant anemia with a hemoglobin of 7.8. She also reported melanotic stools at home. She was admitted to the medical surgical floor with consultation to plastic surgery regarding infected hematomas, consulted wound care. She was placed on clindamycin and meropenem she had a history of Pseudomonas and enterococcus. She was taken off of Xarelto which she was taking for paroxysmal atrial fibrillation and history of DVT as she had melanotic stools. Stool was sent for occult blood and was positive. She was given 2 units of packed red blood cells. She was taken for surgery and had I&D, excisional debridement, evacuation of both legs infected hematomas. Hemoglobin remained remained stable following this. Wound VAC was applied to both legs. Infectious disease was consulted. Her wound culture showed Klebsiella pneumoniae and pseudomonas aeruginosa. She was prescribed IV meropenem through PICC line going forward. She remains significantly debilitated and weak, and with her failing going home and falling more leading to more injuries requiring surgery was felt that she required placement to detention for further rehab. This also be beneficial for her as she requires close wound care, and IV antibiotics going forward. She was discharged to detention in stable c ondition. She will need to follow-up with the wound care center and Dr. Strange as directed. She will also need to follow-up with general surgery regarding her Hemoccult positive stool. She was placed on low-dose of Eliquis at discharge as she has a history of clots and A. fib. She will have to have her hemoglobin monitored closely and she will need to watch for melanotic stools. This patient was seen by Donn Reinoso PA-C under the supervision of Doctor Hubbard. [] Patient Problems: Active and Suspected Problems (Last Updated 01/04/19 @ 17:12 by Kary Monk MD) Traumatic hematoma of multiple sites of lower extremity with infection (Acute) - Physical Exam Vitals/I&O's: Vital Signs Temp Pulse Resp BP Pulse Ox 98.0 F 66 18 99/49 L 96 01/08/19 14:15 01/08/19 14:15 01/08/19 14:15 01/08/19 14:15 01/08/19 14:15 Oxygen Flow Rate (L/min) 1 Oxygen Delivery Method Room Air Weight: 203 lb 7.787 oz Body Mass Index (BMI) 39.7 Finger Stick Blood Glucose 91 Intake and Output for Last 24 Hours 01/06/19 01/07/19 01/08/19 23:59 23:59 23:59 Intake Total 2568.00 / 2568.00 1326.50 / 1326.50 920 / 920 Output Total 950 / 950 850 / 1150 1000 / 1000 Balance 1618.00 / 1618.00 476.50 / 176.50 -80 / -80 General: Alert, Oriented x3, Cooperative HEENT: Atraumatic, PERRLA, EOMI, Normocephalic Neck: Supple, No JVD, Negative Carotid Bruits Lungs: Clear to auscultation, Normal air movement Cardiovascular: Regular rate, No murmurs Abdomen: Bowel Sounds Present, Soft, Non Tender Extremities: No edema, Capillary Refill Less than 3 Seconds Skin: No rashes, No breakdown Musculoskeletal: No Tenderness to Palpation of Joints or Extremities Neurological: Cranial nerves II-XII grossly intact Psych/Mental Status: Normal Affect, Appropriate Microbiology Past 72 Hours 01/06/19 11:57 Biopsy - Leg, Right Gram Stain - Final 01/06/19 11:57 Biopsy - Leg, Right Wound Culture - Preliminary GNR lactose plasterer foreman 01/06/19 11:57 Biopsy - Leg, Right Anaerobic Culture - Preliminary Checking for anaerobes, further studies to follow. 01/06/19 11:57 Biopsy - Leg, Right Gram Stain - Final 01/06/19 11:57 Biopsy - Leg, Right Wound Culture - Preliminary GNR lactose plasterer foreman GNR Poss Pseudomonas sp 01/06/19 11:57 Biopsy - Leg, Right Anaerobic Culture - Preliminary Checking for anaerobes, further studies to follow. 01/06/19 11:57 Biopsy - Tissue Gram Stain - Final 01/06/19 11:57 Biopsy - Tissue Wound Culture - Preliminary GNR lactose plasterer foreman 01/06/19 11:57 Biopsy - Tissue Anaerobic Culture - Preliminary Checking for anaerobes, further studies to follow. 01/07/19 11:30 Stool Stool Occult Blood ([place]) - Final Occult Blood Positive 01/05/19 06:35 Urine, Clean Catch Urine Culture - Preliminary Culture exhibits no growth. 01/04/19 17:45 Wound - Leg, Right Gram Stain - Final 01/04/19 17:45 Wound - Leg, Right Wound Culture - Final Pseudomonas aeroginosa Klebsiella pneumoniae sp pneum Laboratory Results 01/08/19 04:15: WBC 9.0, RBC 3.59 L, Hgb 10.2 L, Hct 34.0 L, MCV 94.7, MCH 28.4, MCHC 30.0 L, RDW Std Deviation 59.0 H, RDW Coeff of Carissa 17.4 H, Plt Count 320, MPV 9.7, Immature Gran % (Auto) 0.900, Neut % (Auto) 66.9, Lymph % (Auto) 16.7 L , [place] % (Auto) 11.4 H, Eos % (Auto) 3.9, Baso % (Auto) 0.2, Absolute Neuts (auto) 6.0, Absolute Lymphs (auto) 1.51, Nucleated RBC % 0 Current Medications Acetaminophen (Tylenol) 650 mg PO Q6H PRN PRN PRN Reason: Pain Score 1-3/Temp > 100.7 F Last Admin: 01/06/19 09:15 Dose: 650 mg Documented by: Albuterol Sulfate (Ventolin Aerosols) 2.5 mg INHALATION Q4H PRN PRN PRN Reason: Shortness of breath, wheezing Amiodarone HCl (Cordarone) 200 mg PO DAILY [facility] Last Admin: 01/08/19 10:00 Dose: 200 mg Documented by: Amlodipine Besylate (Norvasc) 2.5 mg PO DAILY [facility] Last Admin: 01/08/19 10:01 Dose: 2.5 mg Documented by: Apixaban (Eliquis) 2.5 mg PO BID [facility] Last Admin: 01/08/19 11:16 Dose: 2.5 mg Documented by: Budesonide (Pulmicort Aerosol) 0.5 mg INHALATION Q12H.RT [facility] Last Admin: 01/08/19 07:18 Dose: 0.5 mg Documented by: Diphenhydramine HCl (Benadryl) 25 mg PO TID PRN PRN PRN Reason: Itching, hives Docusate Sodium (Colace) 100 mg PO DAILY PRN PRN PRN Reason: Constipation Last Admin: 01/07/19 09:23 Dose: 100 mg Documented by: Donepezil HCl (Aricept) 5 mg PO QHS [facility] Last Admin: 01/07/19 21:48 Dose: 5 mg Documented by: Duloxetine HCl (Cymbalta) 60 mg PO DAILY [facility] Last Admin: 01/08/19 10:00 Dose: 60 mg Documented by: [facility]ous [facility] ([facility] S[facility]ate) [facility] Last Admin: 01/08/19 10:04 Dose: 325 mg Documented by: Furosemide (Lasix) 60 mg PO DAILY [facility] Last Admin: 01/08/19 10:00 Dose: 60 mg Documented by: Gabap[facility] ([facility]in) [facility] Last Admin: 01/08/19 10:00 Dose: 300 mg Documented by: Heparin Sodium (Beef Lung) () 50 units IV UD PRN PRN Reason: PICC Line Heparin Flush Hydralazine HCl (Apresoline) 50 mg PO TID [facility] Last Admin: 01/08/19 05:38 Dose: Not Given Documented by: Meropenem 1 gm/ Sodium (Chloride) 120 mls @ 33 mls/hr IV Q12 [facility] Last Infusion: 01/08/19 13:43 Dose: Infused Documented by: Sodium Chloride () 250 mls @ 15 mls/hr IV .[id number] PRN PRN Reason: Saline Flush Last Infusion: 01/08/19 01:27 Dose: 15 mls/hr Documented by: Sodium Chloride () 500 mls @ 15 mls/hr IV PRN PRN PRN Reason: Blood Transfusion Last Infusion: 01/06/19 12:30 Dose: Infused Documented by: Magnesium Oxide (Mag-Ox 400) 400 mg PO BID [facility] Last Admin: 01/08/19 10:01 Dose: 400 mg Documented by: Metoprolol Tartrate (Lopressor (Beta Tommy)) 50 mg PO BID [facility] Last Admin: 01/08/19 10:01 Dose: 50 mg Documented by: Ondansetron HCl (Zofran) 4 mg IV Q8H PRN PRN PRN Reason: NAUSEA/VOMITING Oxycodone HCl (Oxyir) 5 mg PO Q4H PRN PRN PRN Reason: Pain Score 4-5/10 Last Admin: 01/08/19 14:06 Dose: 5 mg Documented by: Pantoprazole Sodium (Protonix) 40 mg PO DAILY [facility] Last Admin: 01/08/19 10:01 Dose: 40 mg Documented by: Sodium Chloride () 10 - 40 ml IV UD PRN PRN Reason: SALINE FLUSH Last Admin: 01/08/19 10:05 Dose: 10 ml Documented by: Sodium Chloride (0.9% Nacl (Sterile) Posiflush) 10 - 40 ml IV UD PRN PRN Reason: Port access or dressing change Discharge Diet: Low fat/ Low Cholesterol, 2000 mg Sodium Diet Discharge Activity: Return to Normal Activity Home Medications: Medications to take at Discharge Amiodarone HCl 200 mg PO DAILY 04/09/18 Duloxetine HCl 60 mg PO DAILY 04/09/18 Magnesium Oxide [Mag-Ox 400] 400 mg PO BID 04/09/18 Metoprolol Tartrate [Lopressor (beta tommy)] 50 mg PO BID 04/09/18 Pantoprazole Sodium [Protonix] 40 mg PO DAILY 04/09/18 Docusate Sodium 100 mg PO DAILY PRN PRN 05/22/18 Ergocalciferol (Vitamin D2) [Vitamin D2] 50,000 unit PO QWEEK 05/22/18 Donepezil HCl 5 mg PO DAILY 08/19/18 Potassium Chloride [Klor-Con M20] 20 meq PO BID 08/19/18 Furosemide [Lasix] 60 mg PO DAILY #1 tab 08/23/18 ferrous sulfate 325 mg (65 mg iron) tablet,delayed release 325 mg PO DAILY 09/25/18 gabapentin 300 mg capsule 600 mg PO BID cap 09/25/18 budesonide 180 mcg/actuation breath activated powder inhaler 1 inh INHALATION BID PRN inhaler 11/18/18 Albuterol Sulfate [Albuterol Sulfate Hfa] 8.5 gm IH PRN PRN 12/13/18 Amlodipine [Norvasc] 2.5 mg PO DAILY 12/13/18 hydrALAZINE [Apresoline] 50 mg GT TID 01/04/19 Acetaminophen [Tylenol Tablet] 650 mg PO Q6H PRN PRN tab 01/08/19 Albuterol Aerosols [Ventolin Aerosols] 2.5 mg INHALATION Q4H PRN PRN vial.neb. 01/08/19 Apixaban [Eliquis] 2.5 mg PO BID tab 01/08/19 Meropenem [Merrem] 1 gm IV Q12 vial 01/08/19 Oxycodone [Oxyir] 5 mg PO Q4H PRN PRN 3 Days #18 tab 01/08/19 Following Prescrptions Were Given to Patient: Oxycodone [Oxyir] 5 mg PO Q4H PRN PRN 3 Days #18 tab PRN Reason: Pain Score 4-5/10 Prescription Printed Primary Care Physician: Octaviano Franco Chi, MD [Primary Care Provider] - Please follow up with your Primary Care Physician in: 1-2 weeks Please Follow Up With: Farhat Strange MD When: as directed Please Follow Up With: Wound care When: as directed Please Follow Up With: Erasto Betancur MD - Regarding anemia, hemeoccult + stools When: 1-2 weeks Disposition: [facility] facility Minutes spent on discharge:: 35 Medical Necessity - Tobacco Use Smoking Status: Former smoker Meaningful Use Info Meaningful Use Diagnoses (Choose all that apply): None applicable <Preston Hubbard - Last Filed: 01/08/19 15:41> Discharge Date and Diagnosis - Primary Discharge Diagnosis Active and Suspected Problems (Last Updated 01/04/19 @ 17:12 by Kary Monk MD) Traumatic hematoma of multiple sites of lower extremity with infection (Acute) - Secondary Discharge Diagnosis Chronic Problems (Last Updated 01/04/19 @ 17:12 by Kary Monk MD) Chronic GI bleeding (Chronic) GERD (gastroesophageal reflux disease) (Chronic) Dementia (Chronic) Restrictive airway disease (Chronic) LAURITA (obstructive sleep apnea) (Chronic) Bilateral lower extremity edema (Chronic) Open wound of right knee (Chronic) Traumatic,penetratiung with fat layer exposed. Essential hypertension (Chronic) Type 2 diabetes mellitus (Chronic) Venous insufficiency of both lower extremities (Chronic) Diastolic CHF (Chronic) Iron deficiency anemia (Chronic) etiology unknown Ulcer of right lower extremity with fat layer exposed (Chronic) Ulcer of right foot with fat layer exposed (Chronic) Ulcer of left lower extremity with fat layer exposed (Chronic) PVD (peripheral vascular disease) (Chronic) Presence of stent in coronary artery (Chronic ~08/29/12) PTCA/stent to CX; PTCA/Stent PTCA/stent to prox RCA 05/06; PTCA/LILY in mid to distal RCA 08/29/12 Atherosclerotic heart disease of [place] coronary artery without angina pectoris (Chronic) PTCA/stent to CX; PTCA/Stent PTCA/stent to prox RCA 05/06; PTCA/LILY in mid to distal RCA 08/29/12; CABG x2 ARREGUIN tp LAD and SVG to OM2 01/02/11 S/P CABG (coronary artery bypass graft) (Chronic ~01/02/11) CABG x2 ARREGUIN tp LAD and SVG to OM2 01/02/11 Paroxysmal atrial fibrillation (Chronic) Hyperlipidemia (Chronic) Hospital Course and Treatment Consultations 01/06/19 08:18 Consult: Onc/Wound/log marker Routine Comment: Reason for Consult:: bilateral legs/scalp wound Summary of Care Provided: [] This patient was seen in conjunction with Donn RUIZ. I have independently interviewed and examined the patient and reviewed pertinent history, examination findings, laboratory and plan of management. I have reviewed the note and agree with the documented findings with the few additional points. In brief, The patient is a 73 year old F admitted for multiple active medical diagnoses: 1. Right lower extremity surrounding cellulitis with repaired wound after laceration 2 weeks ago: Previous cultures were reviewed. Previous wound culture from scalp on 12/09 shows Enterococcus faecalis, staph epidermidis and corynebacterium. Urine culture on September 2018 E. coli. Continue clindamycin and meropenem. She completed the treatment with linezolid and Flagyl for posterior scalp infected wound after trauma on 12/21/2018 as per ID recommendation. She developed angioedema on vancomycin on 12/14. Consult ID and Dr. Strange. 01/06: Wound culture on 01/04 shows gram-negative james possible Pseudomonas and lactose plasterer foreman. Patient seen by Dr. Strange. Was taken for OR for excisional debridement of infected hematoma with overlying skin necrosis of right anterolateral leg, right proximal posterior medial leg and left proximal posterior medial leg. Discussed with the ID. Currently on clindamycin and lorna openem. 01/07: Preop wound culture shows Pseudomonas and Klebsiella pneumonia. Tissue biopsy cultures are pending. ID consult note reviewed. Continue meropenem. Clindamycin discontinued. Wound VAC was placed. 01/08: Preliminary biopsy tissue culture grows gram-negative james lactose plasterer foreman and gram-negative rods Pseudomonas species. Previous wound culture on 01/04 Pseudomonas aeruginosa and Klebsiella pneumoniae. Seen by ID. Prescription given by ID for meropenem 1 g every 8 hourly, lasted January 17, 2019. 2. Iron deficiency anemia with melanotic stool: Xarelto is being held. Had 1 unit of transfusion. Monitor H&H. His last .05/02. 01/06: H&H 7.8/25 today. H&H in evening today 01/07: Hemoglobin dropped to 10.2/33 in the evening. On ferrous sulfate. Patient had IV Venofer on 01/06. Stool for occult blood positive. In a.m. H&H 9.07/04.6. Hold Xarelto. 01/08: H&H has been stable about 10g% for last 2 days. Patient started on low- dose Eliquis 2.5 mg twice daily as she is high risk for DVT. Patient has bilateral lower extremity wound and left arm PICC line. She also had remote history of DVT. Follow-up CBC daily. Follow-up with GI/surgery for work-up for iron deficiency anemia and probably need EGD and colonoscopy. Continue ferrous sulfate. 3. Cardiac conditions: Coronary artery status post CABG and stent, chronic diastolic heart failure, peripheral vascular disease, paroxysmal A. fib: On amiodarone metoprolol. Xarelto is on hold. 01/06: Mild hypotension after surgery. Holding parameters for antihypertensive medications ordered. 01/07: Blood pressure is controlled and is stable. Restless force: Blood pressure is about 100 systolic. It was 148/66 at 10 AM. Hold antihypertensive medication. She had normal pharmacological myocardial perfusion stress test with preserved EF on May 2017. Last echo in April 2018 reported as EF 65% with a stage I diastolic dysfunction, no regional wall motion abnormalities. LA moderately enlarged. Normal right atrium. Normal RV size and systolic function. Mild 1+ eccentric AI. Last EKG on 31 October 2018 shows normal sinus rhythm at 63 bpm. 4.Diabetes mellitus type 2 with diabetic neuropathy: A1c is 5.4 on 12/13. Glucose on BMP 106. 01/07: Glucose is well controlled. Other comorbidities include trigeminal neuralgia, multiple sclerosis, and chronic venous insufficiency, obstructive sleep apnea and restrictive airway disease chronic degenerative joint disease, impaired mobility and gait instability on walker: And follows Dr. Pearson. 8 DVT prophylaxis: INR was 2.1 six days ago. Started on Eliquis 2.5 mg twice daily. Discharge medication reconciliation done. Discharge follow-up instructions completed. Discharge process discussed with the patient and all questions were answered to patient's satisfaction. Hold antihypertensive medications if systolic blood pressure is less than 130 mmHg. Follow-up instructions completed Total time spent, exact 35 minutes on discharge meds reconciliation, examination, review of imaging and blood test and discussion with the patient on follow-up instructions. I have discussed my assessment with Donn RUIZ and orders have been reviewed. Objective: General: Alert, Oriented x3, Cooperative HEENT: Atraumatic, PERRLA, EOMI, Normocephalic Neck: Supple, No JVD, Negative Carotid Bruits, Negative Hepatojugular Reflux Lungs: Clear to auscultation, No rhonchi, No wheeze, No rales, Diminished - D iminished in bilateral lung bases Cardiovascular: Regular rate, Regular Rhythm, Normal S1, Normal S2, No murmurs Abdomen: Bowel Sounds Present, Soft, Non Tender, Non-Distended Extremities: Capillary Refill Less than 3 Seconds, bilateral DYE TUB OPERATOR and dorsalis pedis; diminished Peripheral Pulses. Popliteal is palpable bilaterally. Wound is dressed appropriately Discussed with the wound nurse. Patient has 2 excisional debridement on right lower extremity and one on left lower extremity. Wound VAC applied. Skin: Bilateral leg ulcer on both lower legs. Left arm PICC line. Also has chronic scar on the both lower legs and recent surgical closure of posterior/occipital traumatic ulcer Musculoskeletal: No Tenderness to Palpation of Joints or Extremities, Arthritic Changes Neurological: Cranial nerves II-XII grossly intact, Deep Tendon Reflexes 2+/4 and Symmetrical, Neuro grossly intact Psych/Mental Status: Normal Affect, Appropriate - Physical Exam Vitals/I&O's: Vital Signs Temp Pulse Resp BP Pulse Ox 98.0 F 66 18 99/49 L 96 01/08/19 14:15 01/08/19 15:10 01/08/19 14:15 01/08/19 15:10 01/08/19 14:15 Oxygen Flow Rate (L/min) 1 Oxygen Delivery Method Nasal Cannula Weight: 203 lb 7.787 oz Body Mass Index (BMI) 39.7 Finger Stick Blood Glucose 91 Intake and Output for Last 24 Hours 01/06/19 01/07/19 01/08/19 23:59 23:59 23:59 Intake Total 2568.00 / 2568.00 1326.50 / 1326.50 920 / 920 Output Total 950 / 950 850 / 1150 1000 / 1000 Balance 1618.00 / 1618.00 476.50 / 176.50 -80 / -80 Microbiology Past 72 Hours 01/06/19 11:57 Biopsy - Leg, Right Gram Stain - Final 01/06/19 11:57 Biopsy - Leg, Right Wound Culture - Preliminary GNR lactose plasterer foreman 01/06/19 11:57 Biopsy - Leg, Right Anaerobic Culture - Preliminary Checking for anaerobes, further studies to follow. 01/06/19 11:57 Biopsy - Leg, Right Gram Stain - Final 01/06/19 11:57 Biopsy - Leg, Right Wound Culture - Preliminary GNR lactose plasterer foreman GNR Poss Pseudomonas sp 01/06/19 11:57 Biopsy - Leg, Right Anaerobic Culture - Preliminary Checking for anaerobes, further studies to follow. 01/06/19 11:57 Biopsy - Tissue Gram Stain - Final 01/06/19 11:57 Biopsy - Tissue Wound Culture - Preliminary GNR lactose plasterer foreman 01/06/19 11:57 Biopsy - Tissue Anaerobic Culture - Preliminary Checking for anaerobes, further studies to follow. 01/07/19 11:30 Stool Stool Occult Blood ([place]) - Final Occult Blood Positive 01/05/19 06:35 Urine, Clean Catch Urine Culture - Preliminary Culture exhibits no growth. 01/04/19 17:45 Wound - Leg, Right Gram Stain - Final 01/04/19 17:45 Wound - Leg, Right Wound Culture - Final Pseudomonas aeroginosa Klebsiella pneumoniae sp pneum Laboratory Results 01/08/19 04:15: WBC 9.0, RBC 3.59 L, Hgb 10.2 L, Hct 34.0 L, MCV 94.7, MCH 28.4, MCHC 30.0 L, RDW Std Deviation 59.0 H, RDW Coeff of Carissa 17.4 H, Plt Count 320, MPV 9.7, Immature Gran % (Auto) 0.900, Neut % (Auto) 66.9, Lymph % (Auto) 16.7 L , [place] % (Auto) 11.4 H, Eos % (Auto) 3.9, Baso % (Auto) 0.2, Absolute Neuts (auto) 6.0, Absolute Lymphs (auto) 1.51, Nucleated RBC % 0 Current Medications Acetaminophen (Tylenol) 650 mg PO Q6H PRN PRN PRN Reason: Pain Score 1-3/Temp > 100.7 F Last Admin: 01/06/19 09:15 Dose: 650 mg Documented by: Albuterol Sulfate (Ventolin Aerosols) 2.5 mg INHALATION Q4H PRN PRN PRN Reason: Shortness of breath, wheezing Amiodarone HCl (Cordarone) 200 mg PO DAILY [facility] Last Admin: 01/08/19 10:00 Dose: 200 mg Documented by: Amlodipine Besylate (Norvasc) 2.5 mg PO DAILY [facility] Last Admin: 01/08/19 10:01 Dose: 2.5 mg Documented by: Apixaban (Eliquis) 2.5 mg PO BID [facility] Last Admin: 01/08/19 11:16 Dose: 2.5 mg Documented by: Budesonide (Pulmicort Aerosol) 0.5 mg INHALATION Q12H.RT [facility] Last Admin: 01/08/19 07:18 Dose: 0.5 mg Documented by: Diphenhydramine HCl (Benadryl) 25 mg PO TID PRN PRN PRN Reason: Itching, hives Docusate Sodium (Colace) 100 mg PO DAILY PRN PRN PRN Reason: Constipation Last Admin: 01/07/19 09:23 Dose: 100 mg Documented by: Donepezil HCl (Aricept) 5 mg PO QHS [facility] Last Admin: 01/07/19 21:48 Dose: 5 mg Documented by: Duloxetine HCl (Cymbalta) 60 mg PO DAILY [facility] Last Admin: 01/08/19 10:00 Dose: 60 mg Documented by: Ferrous Sulfate ([facility]ous Sulfate) [facility] Last Admin: 01/08/19 10:04 Dose: 325 mg Documented by: Furosemide (Lasix) 60 mg PO DAILY [facility] Last Admin: 01/08/19 10:00 Dose: 60 mg Documented by: Gab[facility] ([facility]in) [facility] Last Admin: 01/08/19 10:00 Dose: 300 mg Documented by: Heparin Sodium (Beef Lung) () 50 units IV UD PRN PRN Reason: PICC Line Heparin Flush Hydralazine HCl (Apresoline) 50 mg PO TID [facility] Last Admin: 01/08/19 15:10 Dose: Not Given Documented by: Meropenem 1 gm/ Sodium (Chloride) 120 mls @ 33 mls/hr IV Q12 [facility] Last Infusion: 01/08/19 13:43 Dose: Infused Documented by: Sodium Chloride () 250 mls @ 15 mls/hr IV .[id number] PRN PRN Reason: Saline Flush Last Infusion: 01/08/19 01:27 Dose: 15 mls/hr Documented by: Sodium Chloride () 500 mls @ 15 mls/hr IV PRN PRN PRN Reason: Blood Transfusion Last Infusion: 01/06/19 12:30 Dose: Infused Documented by: Magnesium Oxide (Mag-Ox 400) 400 mg PO BID [facility] Last Admin: 01/08/19 10:01 Dose: 400 mg Documented by: Metoprolol Tartrate (Lopressor (Beta Tommy)) 50 mg PO BID [facility] Last Admin: 01/08/19 10:01 Dose: 50 mg Documented by: Ondansetron HCl (Zofran) 4 mg IV Q8H PRN PRN PRN Reason: NAUSEA/VOMITING Oxycodone HCl (Oxyir) 5 mg PO Q4H PRN PRN PRN Reason: Pain Score 4-5/10 Last Admin: 01/08/19 14:06 Dose: 5 mg Documented by: Pantoprazole Sodium (Protonix) 40 mg PO DAILY [facility] Last Admin: 01/08/19 10:01 Dose: 40 mg Documented by: Sodium Chloride () 10 - 40 ml IV UD PRN PRN Reason: SALINE FLUSH Last Admin: 01/08/19 10:05 Dose: 10 ml Documented by: Sodium Chloride (0.9% Nacl (Sterile) Posiflush) 10 - 40 ml IV UD PRN PRN Reason: Port access or dressing change Code Visit Inpatient E&M: [id number] [facility]
--- NOTE | 2019-01-08 15:25 | CHAPLAIN ---
Type of Pastoral Visit _x__ Initial Visit ___ Follow-up Visit ___ On-call Visit ___ General Patient Visit ___ Spiritual Assessment ___ Family Conference ___ Bereavement ___ Rapid Response ___ Code Blue ___ Other (describe below) Pastoral Care Referral From _x__ Patient ___ Family ___ Nurse ___ Physician ___ Metalworking Specialist ___ Post Office Manager ___ Other (describe below) Sacrament/Intervention _x__ Active listening ___ Anointing ___ Advent ___ Bereavement ___ Communion ___ Aminah exploration ___ _x__ Life review _x__ Prayer ___ Reconciliation ___ Sacrament of Sick _x__ Supportive presence ___ Wedding ___ Other (describe below) Pastoral Comments
--- NOTE | 2019-01-08 15:31 | NURSING ---
REPORT CALLED TO [facility]
[2019-01-08] MEDS: DiphenhydrAMINE 25 MG Capsule PO (16:59)
== END 2019-01-08 17:08 | disposition skilled nursing facility (03) | DRG 571 ==
LOC: ED 15:54 → MS3 16:13
PROVIDERS: Anesthesiology; Physician Assistant; Surgery; Admitting Provider Hospitalist; Emergency Provider Emergency Medicine; Family Provider Family Medicine Geriatric Medicine; PCP Family Medicine Geriatric Medicine; Referring Provider Hospitalist; Visit Provider Internal Medicine
PROC: 0JBN0ZZ Excision of Right Lower Leg Subcutaneous Tissue and Fascia, Open Approach (ICD-10-PCS; principal; 2019-01-06 11:20)
DX: S80.11XA Contusion of right lower leg, initial encounter (principal); L03.115 Cellulitis of right lower limb; I50.32 Chronic diastolic (congestive) heart failure; L03.116 Cellulitis of left lower limb; K92.2 Gastrointestinal hemorrhage, unspecified; S80.12XA Contusion of left lower leg, initial encounter; W19.XXXA Unspecified fall, initial encounter; Y92.009 Unspecified place in unspecified non-institutional (private) residence as the place of occurrence of the external cause; I25.10 Atherosclerotic heart disease of native coronary artery without angina pectoris; I48.0 Paroxysmal atrial fibrillation; E78.5 Hyperlipidemia, unspecified; I87.2 Venous insufficiency (chronic) (peripheral); G35 Multiple sclerosis; S00.03XA Contusion of scalp, initial encounter; I11.0 Hypertensive heart disease with heart failure; Z95.5 Presence of coronary angioplasty implant and graft; Z87.891 Personal history of nicotine dependence; Z79.01 Long term (current) use of anticoagulants; D50.0 Iron deficiency anemia secondary to blood loss (chronic); F03.90 Unspecified dementia, unspecified severity, without behavioral disturbance, psychotic disturbance, mood disturbance, and anxiety; G47.33 Obstructive sleep apnea (adult) (pediatric); I73.9 Peripheral vascular disease, unspecified; K21.9 Gastro-esophageal reflux disease without esophagitis; Z86.718 Personal history of other venous thrombosis and embolism; B96.1 Klebsiella pneumoniae [K. pneumoniae] as the cause of diseases classified elsewhere; B96.5 Pseudomonas (aeruginosa) (mallei) (pseudomallei) as the cause of diseases classified elsewhere; R29.6 Repeated falls; R53.81 Other malaise
CPT/HCPCS: 36415; 36569; 80048; 80053; 80076; 81001; 82274; 82962; 85014; 85018; 85025; 85045; 85610; 85730; 86850; 86900; 86901; 86920; 86922; 87070; 87075; 87077; 87086; 87102; 87176; 87186; 87205; 87206; 87640; 88304; 88312; 93005; 94640; 97163; 97166; 97802; 99251; 99285; J1756; J2185; J7030; J7040; J7050; P9016; P9040; A4216; G0463; J2405

== ENCOUNTER 2019-01-22 09:24 | Day surgery (SDC) | payer MEDICARE, SELFPAY ==
[2019-01-13 10:46] VITALS: BMI 39.7
--- NOTE | 2019-01-22 09:36 | HP.PCM_ITS ---
History and Physical Date of Admission: 01/22/19 OFFICE VISIT Date of Service: 01/13/19 MR#: [id number] Acct: [id number] Name: SINA VIZCARRA Rep #: [id number] : [id number] Provider: Ava sykes MD Age/Sex: 73/F Location: [facility] Status: Signed Intake Vital Signs 01/13/19 Body Mass Index (BMI) 39.7 01/13/19 Height 5 ft 01/13/19 Weight: 207 lb 6 oz 01/13/19 Body Mass Index (BMI) 40.5 01/13/19 Blood Pressure 123/67 H 01/13/19 Blood Pressure Location Rt brachial 01/13/19 Blood Pressure Position Sitting 01/13/19 Respiratory Rate 22 H 01/13/19 Pulse Rate 62 01/13/19 Pulse Ox 92 Intake Visit Reasons: positive hemoccult and stools Chief Complaint: positive hemoccult and anemia Copyright Expert Required: No Is patient in pain?: No Allergies codeine Allergy (Unknown, Verified 01/04/19 12:10) Hives cefazolin Allergy (Verified 01/04/19 12:10) Rash ciprofloxacin [From Cipro] Allergy (Verified 01/04/19 12:10) Hives ciprofloxacin HCl [From Cipro] Allergy (Verified 01/04/19 12:10) Hives Latex, Natural Rubber Allergy (Verified 01/04/19 12:10) Rash Penicillins [PCN] Allergy (Verified 01/04/19 12:10) Hives vancomycin Allergy (Verified 01/04/19 12:10) Angioedema adhesive tape Adverse Reaction (Verified 01/04/19 12:10) Rash Medications Amiodarone HCl 200 mg PO DAILY 04/09/18 [History Confirmed 01/13/19] Duloxetine HCl 60 mg PO DAILY 04/09/18 [History Confirmed 01/13/19] Magnesium Oxide [Mag-Ox 400] 400 mg PO BID 04/09/18 [History Confirmed 01/13/19] Metoprolol Tartrate [Lopressor (beta man)] 50 mg PO BID 04/09/18 [History Confirmed 01/13/19] Pantoprazole Sodium [Protonix] 40 mg PO DAILY 04/09/18 [History Confirmed 01/13/19] Docusate Sodium 100 mg PO DAILY PRN PRN 05/22/18 [History Confirmed 01/13/19] Ergocalciferol (Vitamin D2) [Vitamin D2] 50,000 unit PO QWEEK 05/22/18 [History Confirmed 01/13/19] Donepezil HCl 5 mg PO DAILY 08/19/18 [History Confirmed 01/13/19] Potassium Chloride [Klor-Con M20] 20 meq PO BID 08/19/18 [History Confirmed 01/13/19] Furosemide [Lasix] 60 mg PO DAILY #1 tab 08/23/18 [Rx Confirmed 01/13/19] ferrous sulfate 325 mg (65 mg iron) tablet,delayed release 325 mg PO DAILY 09/25/18 [History Confirmed 01/13/19] gabapentin 300 mg capsule 600 mg PO BID cap 09/25/18 [History Confirmed 01/13/19] budesonide 180 mcg/actuation breath activated powder inhaler 1 inh INHALATION BID PRN inhaler 11/18/18 [History Confirmed 01/13/19] Albuterol Sulfate [Albuterol Sulfate Hfa] 8.5 gm IH PRN PRN 12/13/18 [History Confirmed 01/13/19] Amlodipine [Norvasc] 2.5 mg PO DAILY 12/13/18 [History Confirmed 01/13/19] hydrALAZINE [Apresoline] 50 mg GT TID 01/04/19 [History Confirmed 01/13/19] Acetaminophen [Tylenol Tablet] 650 mg PO Q6H PRN PRN tab 01/08/19 [Rx Confirmed 01/13/19] Albuterol Aerosols [Ventolin Aerosols] 2.5 mg INHALATION Q4H PRN PRN vial.neb. 01/08/19 [Rx Confirmed 01/13/19] Apixaban [Eliquis] 2.5 mg PO BID tab 01/08/19 [Rx Confirmed 01/13/19] Meropenem [Merrem] 1 gm IV Q12 vial 01/08/19 [Rx Confirmed 01/13/19] Oxycodone [Oxyir] 5 mg PO Q4H PRN PRN 3 Days #18 tab 01/08/19 [Rx Confirmed 01/13/19] Is last menstrual period known: No Post menopausal: Yes Patient : No PFSH Medical History Essential hypertension (Chronic) Type 2 diabetes mellitus (Chronic) Diastolic CHF (Chronic) Iron deficiency anemia (Chronic) Ulcer of right lower extremity with fat layer exposed (Chronic) Ulcer of right foot with fat layer exposed (Chronic) Ulcer of left lower extremity with fat layer exposed (Chronic) PVD (peripheral vascular disease) (Chronic) Presence of stent in coronary artery (Chronic ~08/29/12) 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) Paroxysmal atrial fibrillation (Chronic) Hyperlipidemia (Chronic) Carcinoma of lip (Acute) Diabetic ulcer of both lower extremities (Acute) History of DVT (deep vein thrombosis) (Acute) Trigeminal neuralgia (Acute) Multiple sclerosis (Chronic) LAURITA (obstructive sleep apnea) (Chronic) Peripheral vascular disease (Chronic) Venous insufficiency of both lower extremities (Chronic) Cognitive impairment (Inactive) Surgical History S/P CABG (coronary artery bypass graft) (Chronic ~01/02/11) History of cataract surgery (Chronic) History of cholecystectomy (Chronic) History of hernia repair (Chronic) History of tonsillectomy and adenoidectomy (Chronic) History of total hysterectomy (Chronic) Postsurgical percutaneous transluminal coronary angioplasty (PTCA) status (Chronic) Presence of coronary angioplasty implant and graft (Resolved ~08/29/12) Family History (Updated 01/13/19 @ 10:42 by Maribell Dougherty) Father Heart disease Cancer prostate Mother Hypertension Cancer mets but unsure where to Breast cancer Brother Diabetes Hypertension Social History (Updated 01/13/19 @ 11:40 by Ava Raygoza MD) Smoking Status: Former smoker how long ago did patient quit smokin alcohol intake: never substance use type: does not use caffeine: Yes Type: coffee Number of servings: 1 additional social history: DOES NOT USE ASPIRIN DOES US IBUPROFEN HPI HPI HPI: SINA VIZCARRA, is a 73 F who presents to the office today for HPI HPI HPI: SINA VIZCARRA, is a 73 F who presents to the office today for positive fecal occult blood, melena. Patient was recently in the hospital from 01/04- 01/08 due to lower extremity hematoma/bleeding/infection. Patient did have a drop in hemoglobin down to 7.8 and get get 3 units of packed red blood cells during her hospital stay. Fecal occult test was done and was positive. Patient is unable to really tell me if she was having blood or dark stools prior to being in the hospital she did think she had dark stools why she has been in the hospital and after. Patient's current hemoglobin is 10.2 which was last checked on day of discharge 01/08. Patient has also been getting iron but she is also on Xarelto due to previous CABG/stents/paroxysmal A. fib- sees Dr. Luna. Patient's last colonoscopy was a long time ago patient is really unsure. Patient's mother had breast cancer and may be another type of cancer unsure. No other history of colon cancer. ROS General General: Yes weight change and fatigue; no appetite, colon cancer, breast cancer or weakness HEENT HEENT: No difficulty swallowing, eye injury, eye surgery, swollen glands or hoarseness Endo Endocrine: Yes diabetes mellitus; no thyroid disease, thyroid cancer, Hair loss, heat intolerance or cold intolerance Cardio Cardiovascular: Yes heart disease, atrial fibrillation, high blood pressure, heart attack and heart stent; no murmur, pacemaker, palpitations, shortness of breat with exertion or chest pain Psych Psychiatric: Yes depression; no anxiety or hearing voices Resp Respiratory: No shortness of breath, Yes sleep apnea, No cough, No COPD, No asthma, No emphysema, No wheezing Gastro Gastrointestinal: No abdominal pain, No nausea or vomiting, No diarrhea, No constipation, Yes blood in stool, Yes acid reflux, No hemorrhoids, No ulcers, No gallbladder problem, No black,tarry stools [place] Hematologic: No blood thinners, No blood disorders, No bleeding, Yes anemia, Yes blood clots Neuro Neurologic: No weakness Exam Const General: cooperative, comfortable, no acute distress Resp Effort & Inspection: normal respiratory effort Cardio Rate: regular rate Heart Sounds: no murmurs GI Inspection: non-distended, scar (Previous incisions from open gallbladder, open hysterectomy as well as appendectomy) Palpation: soft, no guarding, nontender Assessment & Plan Problems 1. Fecal occult blood test positive R19.5 2. Iron deficiency anemia D50.9 etiology unknown Plan Will hold iron 5 days before, plan to have held Eliquis 3 days before but will double check with Dr. Luna, patient is on 60 mg of Lasix daily will plan to discuss with Dr. Franco for the day fo the colon prep. I have discussed the above with the patient. I have offered the patient EGD and colonoscopy for evaluation for fecal occult positive blood, melena. I have explained the risks/benefits of the procedure and described the procedure. I have discussed the risks with the patient, including but not limited to: infection, bleeding, perforation of the GI tract requiring emergency surgery, inability to complete the procedure, injury to any internal organs, complications of anesthesia, etc. - the patient understands and agrees to proceed. I have answered all the patient's questions to the patient's satisfaction and the patient has no further questions. The patient has been given instructions for the colon cleansing preparation-2 days of Stephanie samson M.D. Pager: [phone] [facility] [address] [place] [address], [address] [place] [address] Office: [phone] Plan Detail Follow Up We will schedule EGD and colonoscopy Coding Level of Care Code Off vis,new,level 3 Diagnoses Fecal occult blood test positive R19.5 Iron deficiency anemia D50.9 01/13/19 1140 <Electronically signed by Ava Lee am, MD> Date _ Ava Raygoza MD
[2019-01-22 10:08] VITALS: BP 144/55; PULSE 56; RESP 16; TEMP 36.6; O2SAT 96; BMI 38.9
[2019-01-22] MEDS: Lactated Ringers 1,000 ML 100 ML IV (10:15)
--- NOTE | 2019-01-22 10:45 | EGD_PTH ---
PATIENT: SINA VIZCARRA LOC: EN U#:[id number] AGE/SX: 73/F ROOM: RE01/22/[address]: Dr. Ava Raygoza MD : 1945 BED: DIS: 01/22/2019 SPEC #: [id number] RECD: 01/22/19 15:36 STATUS: RENARD RERickey #: [id number] GERALDO: 01/22/19 10:[address]: Ava Raygoza DEPT: SURGICAL PATHOLOGY RECD BY: Cheko Valles ENTERED: 01/23/19 09:08 SP TYPE: EGD BIOPSY OT DR: Dr. Octaviano Franco MD Tissues: A - Gastric mucous membrane B - Gastric mucous membrane C - POLYP D - Ascending colon E - Rectum, NOS Procedures: Surgery Specimen Level IV HEADER OPERATION: Colonoscopy, EGD ([facility]) PRE-OP DIAGNOSIS: Fecal occult stool positive, anemia TISSUE SUBMITTED: A - Antrum biopsy for H. pylori and path, B - Polypectomy of gastric polyp, C - Appendiceal orifice polyp, D - Biopsy of distal ascending polyp, E - Rectal polyps MICROSCOPIC DIAGNOSIS A. Antrum biopsy: Mild gastritis. See microscopic description and comment. B. Gastric polyp, polypectomy: Fundic gland polyp. C. Appendiceal orifice polyp, biopsy: Tubulovillous adenoma. D. Descending colon polyp, biopsy: Fragments of serrated adenoma (mixed tubular adenoma and hyperplastic polyp). E. Rectal polyps, biopsy. Fragments of tubular adenoma. Fragments of inflammatory polyp. SJ:vania 01/24/19 COMMENT A. The results of immunohistochemistry for Helicobacter pylori will be reported separately ([id number]). MICROSCOPIC DESCRIPTION Slides are reviewed. A. The specimen shows fragments of gastric mucosa with chronic inflammatory cell infiltrates in the lamina propria consisting of lymphocytes and plasma cells, consistent with mild chronic gastritis. GROSS DESCRIPTION A - Received in fixative is one container labeled with the patient's name and designated antrum biopsy. The specimen consists of multiple irregular fragments of light tavarez soft tissue that in aggregate measure 0.5 x 0.2 x 0.1 cm. The specimen is totally submitted in one cassette. B - Received in fixative is one container labeled with the patient's name and designated polypectomy of gastric polyp. The specimen consists of a pink-red polyp measuring 1 x 1 x 0.5 cm. The apparent base is inked. The specimen is bisected and submitted entirely in one cassette. C - Received in fixative is one container labeled with the patient's name and designated appendiceal orifice polyp. The specimen consists of a pink-red polyp measuring 1 x 0.7 x 0.5 cm. The apparent base is inked. The specimen is bisected and submitted entirely in one cassette. D - Received in fixative is one container labeled with the patient's name and designated biopsy of distal ascending polyp. The specimen consists of multiple irregular fragments of light tavarez soft tissue that in aggregate measure 0.5 x 0.5 x 0.1 cm. The specimen is totally submitted in one cassette. E - Received in fixative is one container labeled with the patient's name and designated rectal polyps. The specimen consists of multiple polypoid fragments of tavarez-pink soft tissue mixed with fecal material that in aggregate measure 2 x 0.7 x 0.4 cm. The polyps measure 0.3 to 0.7 cm in greatest dimension. The entire specimen is submitted in one cassette. / SJ:rg 01/23/19 TC:1 CPT: 88122 x5
--- NOTE | 2019-01-22 10:45 | IMM_PTH ---
PATIENT: SINA VIZCARRA LOC: EN U#:[id number] AGE/SX: 73/F ROOM: RE01/22/[address]: Dr. Ava Raygoza MD : 1945 BED: DIS: 01/22/2019 SPEC #: [id number] RECD: 01/23/19 09:31 STATUS: RENARD REQ #: [id number] GERALDO: 01/22/19 10:[address]: Ava Raygoza DEPT: IMMUNOHISTOCHEMISTRY RECD BY: Caryl Chatman ENTERED: 01/23/19 09:32 SP TYPE: IMMUNO OTHR DR: Dr. Octaviano Franco MD Tissues: A - Stomach, NOS Procedures: H Pylori (initial) PHYSICIAN & INSTITUTION [place] [id number] SPECIMEN INFORMATION: Tissue Source: A - Antrum biopsy Clinical Info: Fecal occult stool positive; anemia Specimen Number: [id number] CPT code: 66393 METHODOLOGY: Deparaffinized sections of prefer/formalin-fixed tissue or PAP/DQ stained slides are incubated with monoclonal/polyclonal antibodies/oligonucleotide probes. Localization is made via biotin free immunoperoxidase method. Appropriate controls are performed and reacted as expected. Results on target cell population are indicated in the following table: RESULTS: ANTIBODY / CLONE RESULT Block A H Pylori (polyclonal) negative These tests were developed and their performance characteristics determined by [facility]. They may not have been cleared or approved by the U.S. Food and Drug Administration. The FDA has determined that such clearance or approval is not necessary. INTERPRETATION: A. Antrum biopsy: Negative for Helicobacter pylori organisms. SJ:vania 01/24/19
[2019-01-22 11:15] VITALS: BP 109/54; BP 144/55; PULSE 62; RESP 18; TEMP 37.1; O2SAT 95
--- NOTE | 2019-01-22 11:18 | OP.EGD_ITS ---
Patient Name: Nikki Ya Procedure Date: 01/22/2019 10:09 AM Date of : 1945 Age: 73 Procedure: Upper GI endoscopy Indications: Melena Providers: Ava Raygoza MD Referring MD: Octaviano Franco MD Medicines: Monitored Anesthesia Care Patient Profile: This is a 73 year old female. Complications: No immediate complications. Procedure: Pre-Anesthesia Assessment: - Prior to the procedure, a History and Physical was performed, and patient medications and allergies were reviewed. The patient's tolerance of previous anesthesia was also reviewed. The risks and benefits of the procedure and the sedation options and risks were discussed with the patient. All questions were answered, and informed consent was obtained. Prior Anticoagulants: The patient has taken Eliquis (apixaban), last dose was 3 days prior to procedure. ASA Grade Assessment: III - A patient with severe systemic disease. After reviewing the risks and benefits, the patient was deemed in satisfactory condition to undergo the procedure. After obtaining informed consent, the endoscope was passed under direct vision. Throughout the procedure, the patient's blood pressure, pulse, and oxygen saturations were monitored continuously. The gastroscope was introduced through the mouth, and advanced to the second part of duodenum. The upper GI endoscopy was accomplished without difficulty. The patient tolerated the procedure well. Scope In: 10:26:28 AM Scope Out: 10:35:38 AM Total Procedure Duration Time 0 hours 9 minutes 10 seconds Findings: The Z-line was variable and was found 40 cm from the incisors. A few 9 mm papules (nodules) with no bleeding and no stigmata of recent bleeding were found in the gastric antrum. Biopsies were taken with a cold forceps for histology. Biopsies were taken with a cold forceps for Helicobacter pylori cultures. Multiple 7 mm pedunculated polyps with no bleeding and no stigmata of recent bleeding were found in the gastric body. The polyp was removed with a hot snare. Resection and retrieval were complete. The examined duodenum was normal. The exam was otherwise without abnormality. Mildly erythematous mucosa without bleeding was found in the gastric antrum. Impression: - Z-line variable, 40 cm from the incisors. - A few papules (nodules) found in the stomach. Biopsied. - Multiple gastric polyps. Resected and retrieved. - Normal examined duodenum. - The examination was otherwise normal. - Erythematous mucosa in the antrum. Recommendation: - Discharge patient to a detention. - Resume previous diet. - Use Protonix (pantoprazole) 40 mg PO BID. - Use sucralfate tablets 1 gram PO QID for 2 weeks. - Await pathology results. - Continue present medications. - Resume Eliquis (apixaban) at prior dose in 2 days. Procedure Code(s): --- Professional --- 63648, Esophagogastroduodenoscopy, flexible, transoral; with removal of tumor(s), polyp(s), or other lesion(s) by snare technique 43225, 59, Esophagogastroduodenoscopy, flexible, transoral; with biopsy, single or multiple Diagnosis Code(s): --- Professional --- K22.8, Other specified diseases of esophagus K31.89, Other diseases of stomach and duodenum K31.7, Polyp of stomach and duodenum K92.1, Melena (includes Hematochezia) CPT copyright 2017 [employer]. All rights reserved. The codes documented in this report are preliminary and upon inpatient coder review may be revised to meet current compliance requirements. MD Ava Enriquez MD 01/22/2019 11:17:52 AM This report has been signed electronically. Number of Addenda: 0 Note Initiated On: 01/22/2019 10:09 AM
[2019-01-22 11:20] VITALS: BP 114/65; BP 144/55; PULSE 58; RESP 18; O2SAT 93
--- NOTE | 2019-01-22 11:23 | OP.COLON_ITS ---
Patient Name: Nikki Ya Procedure Date: 01/22/2019 10:37 AM Date of : 1945 Age: 73 Procedure: Colonoscopy Indications: Melena Providers: Ava Raygoza MD Referring MD: Octaviano Franco MD Medicines: Monitored Anesthesia Care Patient Profile: This is a 73 year old female. Last Colonoscopy: more than 10 years ago. Complications: No immediate complications. Procedure: Pre-Anesthesia Assessment: - Prior to the procedure, a History and Physical was performed, and patient medications and allergies were reviewed. The patient's tolerance of previous anesthesia was also reviewed. The risks and benefits of the procedure and the sedation options and risks were discussed with the patient. All questions were answered, and informed consent was obtained. Prior Anticoagulants: The patient has taken Eliquis (apixaban), last dose was 3 days prior to procedure. ASA Grade Assessment: III - A patient with severe systemic disease. After reviewing the risks and benefits, the patient was deemed in satisfactory condition to undergo the procedure. After I obtained informed consent, the scope was passed under direct vision. Throughout the procedure, the patient's blood pressure, pulse, and oxygen saturations were monitored continuously. The Colonoscope was introduced through the anus and advanced to the cecum, identified by the appendiceal orifice, ileocecal valve and palpation. The colonoscopy was performed without difficulty. The patient tolerated the procedure well. The quality of the bowel preparation was adequate. Scope In: 10:39:25 AM Scope Withdrawal Time 0 hours 16 minutes 47 seconds Scope Out: 11:08:03 AM Total Procedure Duration Time 0 hours 28 minutes 38 seconds Findings: Hemorrhoids were found on perianal exam. Three semi-pedunculated polyps were found in the rectum and appendiceal orifice. The polyps were 7 to 11 mm in size. These polyps were removed with a hot snare. Resection and retrieval were complete. A 6 mm polyp was found in the distal ascending colon. The polyp was sessile. The polyp was removed with a cold biopsy forceps. Resection and retrieval were complete. External and internal hemorrhoids were found during digital exam. The hemorrhoids were Grade I (internal hemorrhoids that do not prolapse). The exam was otherwise without abnormality. Impression: - Hemorrhoids found on perianal exam. - Three 7 to 11 mm polyps in the rectum and at the appendiceal orifice, removed with a hot snare. Resected and retrieved. - One 6 mm polyp in the distal ascending colon, removed with a cold biopsy forceps. Resected and retrieved. - External and internal hemorrhoids. - The examination was otherwise normal. Recommendation: - Discharge patient to a [place] [facility]. - Resume previous diet. - Resume Eliquis (apixaban) at prior dose in 2 days. - Await pathology results. - Repeat colonoscopy in 3 - 5 years for surveillance based on pathology results, depending on overall health at that time. Procedure Code(s): --- Professional --- 70384, Colonoscopy, flexible; with removal of tumor(s), polyp(s), or other lesion(s) by snare technique 32751, 59, Colonoscopy, flexible; with biopsy, single or multiple Diagnosis Code(s): --- Professional --- K64.0, First degree hemorrhoids K62.1, Rectal polyp D12.1, Benign neoplasm of appendix D12.2, Benign neoplasm of ascending colon K92.1, Melena (includes Hematochezia) CPT copyright 2017 [employer]. All rights reserved. The codes documented in this report are preliminary and upon ad taker review may be revised to meet current compliance requirements. MD Ava Enriquez MD 01/22/2019 11:22:54 AM This report has been signed electronically. Number of Addenda: 0 Note Initiated On: 01/22/2019 10:37 AM
[2019-01-22 11:25] VITALS: BP 142/74; BP 144/55; PULSE 57; RESP 18; O2SAT 95
[2019-01-22 11:30] VITALS: BP 142/44; BP 144/55; PULSE 72; RESP 18; TEMP 37.1; O2SAT 97
[2019-01-22 12:23] VITALS: BP 144/55
== END 2019-01-22 12:25 | disposition skilled nursing facility (03) ==
LOC: EN 09:28 → AC 09:28
PROVIDERS: Family Provider Family Medicine Geriatric Medicine; PCP Family Medicine Geriatric Medicine; Referring Provider Family Medicine Geriatric Medicine; Visit Provider Surgery
PROC: 0DJD8ZZ Inspection of Lower Intestinal Tract, Via Natural or Artificial Opening Endoscopic (ICD-10-PCS; CPT 45378; principal; 2019-01-22 10:40)
DX: D12.2 Benign neoplasm of ascending colon (principal); K64.0 First degree hemorrhoids; D12.1 Benign neoplasm of appendix; K62.1 Rectal polyp; K31.7 Polyp of stomach and duodenum; K22.8 Other specified diseases of esophagus; K64.4 Residual hemorrhoidal skin tags; K31.89 Other diseases of stomach and duodenum; D50.9 Iron deficiency anemia, unspecified; G35 Multiple sclerosis; G47.33 Obstructive sleep apnea (adult) (pediatric); I11.0 Hypertensive heart disease with heart failure; I50.32 Chronic diastolic (congestive) heart failure; E11.51 Type 2 diabetes mellitus with diabetic peripheral angiopathy without gangrene; I25.10 Atherosclerotic heart disease of native coronary artery without angina pectoris; I48.0 Paroxysmal atrial fibrillation; E78.5 Hyperlipidemia, unspecified; Z86.718 Personal history of other venous thrombosis and embolism; Z79.01 Long term (current) use of anticoagulants; Z80.3 Family history of malignant neoplasm of breast; Z87.891 Personal history of nicotine dependence; Z79.899 Other long term (current) drug therapy; Z95.1 Presence of aortocoronary bypass graft
CPT/HCPCS: 43239; 43251; 45380; 45385; 88305; 88342; J7120; A4216; J2405

== ENCOUNTER 2019-02-03 13:30 | Outpatient (RCR) | payer MEDICARE, SELFPAY ==
[2019-01-04 16:36] VITALS: BMI 39.7
[2019-01-05 00:28] VITALS: BP 149/79; PULSE 68; RESP 16; TEMP 37
[2019-01-27 11:45] VITALS: BP 97/46; PULSE 64; RESP 18; TEMP 35.8; BMI 38.9
--- NOTE | 2019-01-27 15:52 | PN.PCM_ITS ---
(1) Ulcer of right lower leg Status: Chronic Current Visit: Yes Code(s): L97.919 - Non-pressure chronic ulcer of unspecified part of right lower leg with unspecified severity (2) Ulcer of left lower leg Status: Chronic Current Visit: Yes Code(s): L97.929 - Non-pressure chronic ulcer of unspecified part of left lower leg with unspecified severity (3) Ulcer of right calf Status: Chronic Current Visit: Yes Code(s): L97.219 - Non-pressure chronic ulcer of right calf with unspecified severity (4) Bilateral lower extremity edema Status: Chronic Current Visit: Yes Code(s): R60.0 - Localized edema (5) Type 2 diabetes mellitus Status: Chronic Current Visit: Yes Code(s): E11.9 - Type 2 diabetes mellitus without complications (6) Venous insufficiency of both lower extremities Status: Chronic Current Visit: Yes Code(s): I87.2 - Venous insufficiency (chronic) (peripheral) Type of Wound Date of Service: 01/27/19 Chief Complaint: Left lower extremity wond and ulcer. History of Wound: On 01/06/19 patient underwent surgery for 1. Surgical preparation right anterolateral leg with incision and drainage and evacuation and excisional debridement infected hematoma with overlying skin necrosis (85.5 cm2). 2. Surgical preparation right proximal posteromedial leg with incision and drainage and evacuation and excisional debridement infected hematom with overlying skin necrosis (22.5 cm2). 3. Surgical preparation left proximal posteromedial leg with incision and drainage and evacuation and excisional debridement infected hematoma with overlying skin necrosis (30 cm2). She had fallen a week prior at home. She has history of chronic bilateral leg edema with venous insufficiency as well as chronic bilateral leg wounds. Upon admission her Hgb was 7.8. She received PRBC. Because of the cellulitis, she was started on IV antibiotics. She is currently on Cleocin and Meropenem. Surgical wound culture to right anterior lateral ulcer positive for Klebsiella pneumoniae sp pneum. Cultures from right proximal posterior medial ulcer positive for Klebsiella pneumoniae sp pneum, Pseudomonas aeroginosa. Cultures from left proximal posterior medial ulcer positive for Klebsiella pneumoniae sp pneum. Wound care is a wound VAC to the right anterior lateral leg ulcer, right posterior leg ulcer and left posterior leg ulcer. She is having a lot of periwound redness. Will daily silver dressing changes until Sunday and will restart the wound VAC then. Instructed to wash wound and marti wound daily with soap and water. She has a history of frequent falls. [facility] is [facility] at [facility] since this past hospitalization. She denies fevers. Encouraged increase protein intake. Progress of Wound: Stable - Physical Exam Vital Signs Temp Pulse Resp BP 96.4 F L 64 18 97/46 L 01/27/19 11:45 01/27/19 11:45 01/27/19 11:45 01/27/19 11:45 General: Alert, Oriented x3, Cooperative HEENT: Atraumatic Oral: Moist Mucosa Lungs: Normal air movement Cardiovascular: Regular rate Abdomen: Soft, Obese Extremities: Capillary Refill Less than 3 Seconds, Diminished Peripheral Pulses, Edema Skin: Ulcer/ Wound - right anterior lateral leg ulcer, right posterior leg ulcer, left posterior leg ulcer Wound Measurements and Assessment WC - Nurse 1 - General Ulcer Measurement Start: 01/27/19 11:45 Freq: Status: Active Protocol: Activity Type Activity Date Activity User E-Sign Co-Sign Detail Recorded Client Recorded Date Recorded By Document 01/27/19 11:45 MW [id number] 01/27/19 12:11 MW 01/27/19 11:45 Wound Center Nurse 1 [Ulcer Assessment] #24 RIGHT MCPHERSON/LATERAL LE -Combined with other wound No -Current Size (cm) - Length 8.8 -Current Size (cm) - Width 13.0 -Current Size (cm) - Depth 1.2 -Total Square Cm 114.40 -Date of Last Picture (Recall this 01/27/19 field) -Photo Taken Yes -Epithelialization None Present -Tunneling No -Undermining/Tunneling No -Circular Undermining No -Exudate Amt Large -Exudate Type Sanguineous -Wound Margin Distinct, Outline Attached -Granulation Amt Medium (34-66%) -Granulation Quality Red -Slough/Fibrin Yes -Necrosis Amt Medium (34-66%) -Structure Exposed Tendon -Texture (Marti-wound Skin Appearance) Assessed, Excoriation, Localized Edema ,Scarring -Moisture (Marti-wound Skin Appearance Assessed, ) Maceration -Color (Marti-wound Skin Appearance) Assessed, Hemosiderin Staining -Temperature (Marti-wound Skin No Abnormality Appearance) (Pt Warm) -Tenderness on Palpation (Marti-wound Yes Skin Appearance) -Ulcer Cleansing SOAP AND WATER -Foul Odor after Cleansing No -Anesthetic Used 4% Lidocaine Solution #23 right post LE -Combined with other wound No -Current Size (cm) - Length 3.6 -Current Size (cm) - Width 3.4 -Current Size (cm) - Depth 1.2 -Total Square Cm 12.24 -Date of Last Picture (Recall this 01/27/19 field) -Photo Taken Yes -Epithelialization None Present -Tunneling No -Undermining/Tunneling No -Circular Undermining No -Exudate Amt Large -Exudate Type Sanguineous -Wound Margin Distinct, Outline Attached -Granulation Amt Medium (34-66%) -Granulation Quality Red -Slough/Fibrin Yes -Necrosis Amt Medium (34-66%) -Necrotic Tissue Type Adherent Slough -Structure Exposed N/A -Texture (Marti-wound Skin Appearance) Assessed, Excoriation, Localized Edema ,Scarring -Moisture (Marti-wound Skin Appearance Assessed, ) Maceration -Color (Marti-wound Skin Appearance) Assessed, Hemosiderin Staining -Temperature (Marti-wound Skin No Abnormality Appearance) (Pt Warm) -Tenderness on Palpation (Marti-wound Yes Skin Appearance) -Ulcer Cleansing SOAP AND WATER -Foul Odor after Cleansing No -Anesthetic Used 4% Lidocaine Solution #22 Left Post LE -Combined with other wound No -Current Size (cm) - Length 4.0 -Current Size (cm) - Width 4.5 -Current Size (cm) - Depth 2.0 -Total Square Cm 18.00 -Date of Last Picture (Recall this 01/27/19 field) -Photo Taken Yes -Epithelialization None Present -Tunneling No -Undermining/Tunneling No -Circular Undermining No -Exudate Amt Large -Exudate Type Sanguineous -Wound Margin Distinct, Outline Attached -Granulation Amt Medium (34-66%) -Granulation Quality Red -Slough/Fibrin Yes -Necrosis Amt Medium (34-66%) -Necrotic Tissue Type Adherent Slough -Structure Exposed N/A -Texture (Marti-wound Skin Appearance) No Abnormality, Assessed, Excoriation, Localized Edema -Moisture (Marti-wound Skin Appearance Assessed, ) Maceration -Color (Marti-wound Skin Appearance) Assessed, Hemosiderin Staining -Temperature (Marti-wound Skin No Abnormality Appearance) (Pt Warm) -Tenderness on Palpation (Marti-wound Yes Skin Appearance) -Ulcer Cleansing SOAP AND WATER -Foul Odor after Cleansing No -Anesthetic Used 4% Lidocaine Solution [Edema Assessment] -Lower Limb Edema Present Yes -Right Calf (cm) 47.2 -Right Ankle (cm) 30.8 -Left Calf (cm) 41.5 -Left Ankle (cm) 28.5 WC - Nurse 2 - General Ulcer CM Notes Start: 01/27/19 11:45 Freq: Status: Active Protocol: Activity Type Activity Date Activity User E-Sign Co-Sign Detail Recorded Client Recorded Date Recorded By Document 01/27/19 12:32 SERG [id number] 01/27/19 12:36 SERG 01/27/19 12:32 Wound Center Nurse 2 [Procedure/Treatment] #24 RIGHT MCPHERSON/LATERAL LE -Time 12:34 -Correct Patient Yes -Correct Side, Site, Position Yes -Correct Procedure Yes -Procedure Performed Yes -Type of Procedure Debridement -Clinical Debridement Subcutaneous -Post Debridement Size (cm) - Length 8.4 -Post Debridement Size (cm) - Width 13.0 -Post Debridement Size (cm) - Depth 0.8 -Total Square Cm 109.20 -Wound/Ulcer Outcome Not Healed -Ulcer Cleansing Rinsed/ Irrigated with Saline -Foul Odor after Cleansing No -Bioengineered Tissue No -Bleeding Controlled with Pressure -Offloading No -Treatment Response Procedure Tolerated Well #23 right post LE -Time 12:34 -Correct Patient Yes -Correct Side, Site, Position Yes -Correct Procedure Yes -Procedure Performed Yes -Type of Procedure Debridement -Clinical Debridement Subcutaneous -Post Debridement Size (cm) - Length 3.0 -Post Debridement Size (cm) - Width 3.5 -Post Debridement Size (cm) - Depth 1.4 -Total Square Cm 10.50 -Wound/Ulcer Outcome Not Healed -Ulcer Cleansing Rinsed/ Irrigated with Saline -Foul Odor after Cleansing No -Bioengineered Tissue No -Bleeding Controlled with Pressure -Offloading No -Treatment Response Procedure Tolerated Well #22 Left Post LE -Time 12:33 -Correct Patient Yes -Correct Side, Site, Position Yes -Correct Procedure Yes -Procedure Performed Yes -Type of Procedure Debridement -Clinical Debridement Subcutaneous -Post Debridement Size (cm) - Length 4.2 -Post Debridement Size (cm) - Width 3.5 -Post Debridement Size (cm) - Depth 1.5 -Total Square Cm 14.70 -Wound/Ulcer Outcome Not Healed -Ulcer Cleansing Rinsed/ Irrigated with Saline -Foul Odor after Cleansing No -Bioengineered Tissue No -Bleeding Controlled with Pressure -Offloading No -Treatment Response Procedure Tolerated Well [See Physician Procedure note for Specifics] Pain Scale: 0-10 Numeric [Pain] -Is Patient Pain Free? Yes Musculoskeletal: No Muscle Wasting Neurological: Neuro grossly intact Psych/Mental Status: Normal Affect, Appropriate Debridement Note Post-Debridement Measurements/Treatment WC - Nurse 2 - General Ulcer CM Notes Start: 01/27/19 11:45 Freq: Status: Active Protocol: Activity Type Activity Date Activity User E-Sign Co-Sign Detail Recorded Client Recorded Date Recorded By Document 01/27/19 12:32 SERG [id number] 01/27/19 12:36 SERG 01/27/19 12:32 Wound Center Nurse 2 #24 RIGHT MCPHERSON/LATERAL LE -Time 12:34 -Correct Patient Yes -Correct Side, Site, Position Yes -Correct Procedure Yes -Procedure Performed Yes -Type of Procedure Debridement -Clinical Debridement Subcutaneous -Post Debridement Size (cm) - Length 8.4 -Post Debridement Size (cm) - Width 13.0 -Post Debridement Size (cm) - Depth 0.8 -Total Square Cm 109.20 -Wound/Ulcer Outcome Not Healed -Ulcer Cleansing Rinsed/ Irrigated with Saline -Foul Odor after Cleansing No -Bioengineered Tissue No -Bleeding Controlled with Pressure -Offloading No -Treatment Response Procedure Tolerated Well #23 right post LE -Time 12:34 -Correct Patient Yes -Correct Side, Site, Position Yes -Correct Procedure Yes -Procedure Performed Yes -Type of Procedure Debridement -Clinical Debridement Subcutaneous -Post Debridement Size (cm) - Length 3.0 -Post Debridement Size (cm) - Width 3.5 -Post Debridement Size (cm) - Depth 1.4 -Total Square Cm 10.50 -Wound/Ulcer Outcome Not Healed -Ulcer Cleansing Rinsed/ Irrigated with Saline -Foul Odor after Cleansing No -Bioengineered Tissue No -Bleeding Controlled with Pressure -Offloading No -Treatment Response Procedure Tolerated Well #22 Left Post LE -Time 12:33 -Correct Patient Yes -Correct Side, Site, Position Yes -Correct Procedure Yes -Procedure Performed Yes -Type of Procedure Debridement -Clinical Debridement Subcutaneous -Post Debridement Size (cm) - Length 4.2 -Post Debridement Size (cm) - Width 3.5 -Post Debridement Size (cm) - Depth 1.5 -Total Square Cm 14.70 -Wound/Ulcer Outcome Not Healed -Ulcer Cleansing Rinsed/ Irrigated with Saline -Foul Odor after Cleansing No -Bioengineered Tissue No -Bleeding Controlled with Pressure -Offloading No -Treatment Response Procedure Tolerated Well Pain Scale: 0-10 Numeric Is Patient Pain Free? Yes Wound debrided: Anterior lateral leg ulcer Laterality: Right Type of Debridement: Excisional debridement Anesthesia Used: 5% Lidocaine Gel Depth: Down to and including healthy tissue, in the subcutaneous layer Percentage of wound debrided: 100 Instrument Used: 5mm curette Tissue Removed: Subcutaneous tissue and slough Severity: Fat Layer Exposed Amount of bleeding with debridement: Mild Bleeding Controlled with: Pressure, Compression and gauze Patient tolerated procedure well - Additional Wound Wound debrided: Posterior leg ulcer Laterality: Right Type of Debridement: Excisional debridement Anesthesia Used: 5% Lidocaine Gel Depth: Down to and including healthy tissue, in the subcutaneous layer Percentage of wound debrided: 100 Instrument Used: 5mm curette Tissue Removed: Subcutaneous tissue and slough Severity: Fat Layer Exposed Amount of bleeding with debridement: Mild Bleeding Controlled with: Pressure Patient tolerated procedure: Patient tolerated procedure well - Additional Wound Wound debrided: Posterior leg ulcer Laterality: Left Type of Debridement: Excisional debridement Anesthesia Used: 5% Lidocaine Gel Depth: Down to and including healthy tissue, in the subcutaneous layer Percentage of wound debrided: 100 Instrument Used: 5mm curette Tissue Removed: Subcutaneous tissue and slough Severity: Limited To Skin Breakdown Amount of bleeding with debridement: Mild Bleeding Controlled with: Pressure Patient tolerated procedure: Patient tolerated procedure well Assessment/Plan Active Problems (Last Reviewed 01/13/19 @ 10:41 by Maribell Dougherty) Ulcer of right lower leg (Chronic) Ulcer of left lower leg (Chronic) Ulcer of right calf (Chronic) Bilateral lower extremity edema (Chronic) Type 2 diabetes mellitus (Chronic) Venous insufficiency of both lower extremities (Chronic) Assessment: Same as above. Plan: On 01/06/19 patient underwent surgery for 1. Surgical preparation right anterolateral leg with incision and drainage and evacuation and excisional debridement infected hematoma with overlying skin necrosis (85.5 cm2). 2. Surgical preparation right proximal posteromedial leg with incision and drainage and evacuation and excisional debridement infected hematom with overlying skin necrosis (22.5 cm2). 3. Surgical preparation left proximal posteromedial leg with incision and drainage and evacuation and excisional debridement infected hematoma with overlying skin necrosis (30 cm2). She had fallen a week prior at home. She has history of chronic bilateral leg edema with venous insufficiency as well as chronic bilateral leg wounds. Upon admission her Hgb was 7.8. She received PRBC. Because of the cellulitis, she was started on IV antibiotics. She is currently on Cleocin and Meropenem. Surgical wound culture to right anterior lateral ulcer positive for Klebsiella pneumoniae sp pneum. Cultures from right proximal posterior medial ulcer positive for Klebsiella pneumoniae sp pneum, Pseudomonas aeroginosa. Cultures from left proximal posterior medial ulcer positive for Klebsiella pneumoniae sp pneum. Wound care is a wound VAC to the right anterior lateral leg ulcer, right posterior leg ulcer and left posterior leg ulcer. She is having a lot of periwound redness. Will daily silver dressing changes until Sunday and will restart the wound VAC then. Instructed to wash wound and marti wound daily with soap and water. She has a history of frequent falls. She is currently at the [facility] since this past hospitalization. She denies fevers. Encouraged increase protein intake. Follow up one week. Code Visit [id number]
[2019-02-03 13:51] VITALS: BP 180/69; PULSE 68; RESP 16; TEMP 36.6; BMI 38.9
--- NOTE | 2019-02-03 16:20 | PN.PCM_ITS ---
(1) Ulcer of right lower leg Status: Chronic Current Visit: Yes Code(s): L97.919 - Non-pressure chronic ulcer of unspecified part of right lower leg with unspecified severity (2) Ulcer of left lower leg Status: Chronic Current Visit: Yes Code(s): L97.929 - Non-pressure chronic ulcer of unspecified part of left lower leg with unspecified severity (3) Ulcer of right calf Status: Chronic Current Visit: Yes Code(s): L97.219 - Non-pressure chronic ulcer of right calf with unspecified severity (4) Bilateral lower extremity edema Status: Chronic Current Visit: Yes Code(s): R60.0 - Localized edema (5) Type 2 diabetes mellitus Status: Chronic Current Visit: Yes Code(s): E11.9 - Type 2 diabetes mellitus without complications (6) Venous insufficiency of both lower extremities Status: Chronic Current Visit: Yes Code(s): I87.2 - Venous insufficiency (chronic) (peripheral) Type of Wound Date of Service: 02/03/19 Chief Complaint: Right anterior lateral leg ulcer, right posterior ulcer and left posterior leg ulcer. History of Wound: On 01/06/19 patient underwent surgery for 1. Surgical preparation right anterolateral leg with incision and drainage and evacuation and excisional debridement infected hematoma with overlying skin necrosis (85.5 cm2). 2. Surgical preparation right proximal posteromedial leg with incision and drainage and evacuation and excisional debridement infected hematom with overlying skin necrosis (22.5 cm2). 3. Surgical preparation left proximal posteromedial leg with incision and drainage and evacuation and excisional debridement infected hematoma with overlying skin necrosis (30 cm2). She had fallen a week prior at home. She has history of chronic bilateral leg edema with venous insufficiency as well as chronic bilateral leg wounds. Upon admission her Hgb was 7.8. She received PRBC. Because of the cellulitis, she was started on IV antibiotics. She is currently on Cleocin and Meropenem. Surgical wound culture to right anterior lateral ulcer positive for Klebsiella pneumoniae sp pneum. Cultures from right proximal posterior medial ulcer positive for Klebsiella pneumoniae sp pneum, Pseudomonas aeroginosa. Cultures from left proximal posterior medial ulcer positive for Klebsiella pneumoniae sp pneum. Wound care is a wound VAC to the right anterior lateral leg ulcer, right posterior leg ulcer and left posterior leg ulcer. She is having a lot of periwound redness. Will daily silver dressing changes until Sunday and will restart the wound VAC then. Instructed to wash wound and char wound daily with soap and water. She has a history of frequent falls. She is currently at the [place] since this past hospitalization. She denies fevers. Encouraged increase protein intake. Progress of Wound: stable - Physical Exam Vital Signs Temp Pulse Resp BP 98 F 68 16 180/69 H 02/03/19 13:51 02/03/19 13:51 02/03/19 13:51 02/03/19 13:51 General: Alert, Oriented x3, Cooperative HEENT: Atraumatic Oral: Moist Mucosa Lungs: Normal air movement Cardiovascular: Regular rate Abdomen: Obese Extremities: Capillary Refill Less than 3 Seconds, Diminished Peripheral Pulses, Edema Skin: Ulcer/ Wound - Right anterior lateral leg ulcer, right posterior leg ulcer, left posterior leg ulcer Wound Measurements and Assessment WC - Nurse 1 - General Ulcer Measurement Start: 01/27/19 11:45 Freq: Status: Active Protocol: Activity Type Activity Date Activity User E-Sign Co-Sign Detail Recorded Client Recorded Date Recorded By Document 02/03/19 13:51 [facility] [id number] 02/03/19 14:06 [facility] 02/03/19 13:51 Wound Center Nurse 1 [Ulcer Assessment] #24 RIGHT MCPHERSON/LATERAL LE -Combined with other wound No -Current Size (cm) - Length 8.4 -Current Size (cm) - Width 13.8 -Current Size (cm) - Depth 0.5 -Total Square Cm 115.92 -Photo Taken No -Epithelialization None Present -Tunneling No -Undermining/Tunneling No -Circular Undermining No -Exudate Amt Small -Exudate Type Serosanguineous -Wound Margin Thickened -Granulation Amt Medium (34-66%) -Granulation Quality Pale,Red -Slough/Fibrin Yes -Necrosis Amt Medium (34-66%) -Necrotic Tissue Type Adherent Slough -Texture (Char-wound Skin Appearance) Assessed, Excoriation, Scarring -Moisture (Char-wound Skin Appearance Assessed,Dry/ ) Scaly -Color (Char-wound Skin Appearance) Assessed, Erythema -Temperature (Char-wound Skin No Abnormality Appearance) (Pt Warm) -Tenderness on Palpation (Char-wound Yes Skin Appearance) -Ulcer Cleansing soapy water -Foul Odor after Cleansing No -Anesthetic Used 4% Lidocaine Solution #23 right post LE -Combined with other wound No -Current Size (cm) - Length 3.9 -Current Size (cm) - Width 3.8 -Current Size (cm) - Depth 0.8 -Total Square Cm 14.82 -Photo Taken No -Epithelialization None Present -Tunneling No -Undermining/Tunneling Yes -Undermining/Tunneling Starts (O' 10 clock) -Undermining/Tunneling Ends (O'clock) 12 -Maximum Distance (cm) 0.9 -Circular Undermining No -Exudate Amt Small -Exudate Type Serosanguineous -Wound Margin Distinct, Outline Attached -Granulation Amt Small (1-33%) -Granulation Quality Red -Slough/Fibrin Yes -Necrosis Amt Large (67-100%) -Necrotic Tissue Type Adherent Slough -Texture (Char-wound Skin Appearance) Assessed, Scarring -Moisture (Char-wound Skin Appearance Assessed,Dry/ ) Scaly -Color (Char-wound Skin Appearance) Assessed, Erythema -Temperature (Char-wound Skin No Abnormality Appearance) (Pt Warm) -Tenderness on Palpation (Char-wound Yes Skin Appearance) -Ulcer Cleansing soapy water -Foul Odor after Cleansing No -Anesthetic Used 4% Lidocaine Solution #22 Left Post LE -Combined with other wound No -Current Size (cm) - Length 4.4 -Current Size (cm) - Width 2.9 -Current Size (cm) - Depth 0.7 -Total Square Cm 12.76 -Photo Taken No -Epithelialization None Present -Tunneling No -Undermining/Tunneling No -Circular Undermining No -Exudate Amt Small -Exudate Type Serosanguineous -Wound Margin Distinct, Outline Attached -Granulation Amt Small (1-33%) -Granulation Quality Red -Slough/Fibrin Yes -Necrosis Amt Large (67-100%) -Necrotic Tissue Type Adherent Slough -Texture (Char-wound Skin Appearance) Assessed, Scarring -Moisture (Char-wound Skin Appearance Assessed,Dry/ ) Scaly -Color (Char-wound Skin Appearance) Erythema -Temperature (Char-wound Skin No Abnormality Appearance) (Pt Warm) -Tenderness on Palpation (Char-wound No Skin Appearance) -Ulcer Cleansing soapy water -Foul Odor after Cleansing No -Anesthetic Used 4% Lidocaine Solution [Edema Assessment] -Lower Limb Edema Present Yes -Right Calf (cm) 42.6 -Right Ankle (cm) 29.5 -Left Calf (cm) 39.5 -Left Ankle (cm) 26.1 WC - Nurse 2 - General Ulcer CM Notes Start: 01/27/19 11:45 Freq: Status: Active Protocol: Activity Type Activity Date Activity User E-Sign Co-Sign Detail Recorded Client Recorded Date Recorded By Document 02/03/19 14:31 [facility] [id number] 02/03/19 14:38 [facility] 02/03/19 14:31 Wound Center Nurse 2 [Procedure/Treatment] #24 RIGHT MCPHERSON/LATERAL LE -Time 14:32 -Correct Patient Yes -Correct Side, Site, Position Yes -Correct Procedure Yes -Procedure Performed Yes -Type of Procedure Debridement -Clinical Debridement Subcutaneous -Post Debridement Size (cm) - Length 9 -Post Debridement Size (cm) - Width 13 -Post Debridement Size (cm) - Depth 0.5 -Total Square Cm 117 -Wound/Ulcer Outcome Not Healed -Ulcer Cleansing Rinsed/ Irrigated with Saline -Foul Odor after Cleansing No -Bioengineered Tissue No -Bleeding Controlled with Pressure -Offloading No -Treatment Response Procedure Tolerated Well #23 right post LE -Time 14:36 -Correct Patient Yes -Correct Side, Site, Position Yes -Correct Procedure Yes -Procedure Performed Yes -Type of Procedure Debridement -Clinical Debridement Subcutaneous -Post Debridement Size (cm) - Length 4 -Post Debridement Size (cm) - Width 3.8 -Post Debridement Size (cm) - Depth 0.6 -Total Square Cm 15.2 -Wound/Ulcer Outcome Not Healed -Ulcer Cleansing Rinsed/ Irrigated with Saline -Foul Odor after Cleansing No -Bioengineered Tissue No -Bleeding Controlled with Pressure -Offloading No -Treatment Response Procedure Tolerated Well #22 Left Post LE -Time 14:37 -Correct Patient Yes -Correct Side, Site, Position Yes -Correct Procedure Yes -Procedure Performed Yes -Type of Procedure Debridement -Clinical Debridement Subcutaneous -Post Debridement Size (cm) - Length 4.3 -Post Debridement Size (cm) - Width 3.5 -Post Debridement Size (cm) - Depth 1.0 -Total Square Cm 15.05 -Wound/Ulcer Outcome Not Healed -Ulcer Cleansing Rinsed/ Irrigated with Saline -Foul Odor after Cleansing No -Bioengineered Tissue No -Bleeding Controlled with Pressure -Offloading No -Treatment Response Procedure Tolerated Well [See Physician Procedure note for Specifics] Pain Scale: 0-10 Numeric [Pain] -Is Patient Pain Free? Yes Musculoskeletal: No Tenderness to Palpation of Joints or Extremities Neurological: Neuro grossly intact Psych/Mental Status: Normal Affect, Appropriate Debridement Note Post-Debridement Measurements/Treatment WC - Nurse 2 - General Ulcer CM Notes Start: 01/27/19 11:45 Freq: Status: Active Protocol: Activity Type Activity Date Activity User E-Sign Co-Sign Detail Recorded Client Recorded Date Recorded By Document 01/27/19 12:32 [id number] 01/27/19 12:36 Document 02/03/19 14:31 [id number] 02/03/19 14:38 01/27/19 02/03/19 12:32 14:31 Wound Center Nurse 2 #24 RIGHT MCPHERSON/LATERAL LE -Time 12:34 14:32 -Correct Patient Yes Yes -Correct Side, Site, Position Yes Yes -Correct Procedure Yes Yes -Procedure Performed Yes Yes -Type of Procedure Debridement Debridement -Clinical Debridement Subcutaneous Subcutaneous -Post Debridement Size (cm) - Length 8.4 9 -Post Debridement Size (cm) - Width 13.0 13 -Post Debridement Size (cm) - Depth 0.8 0.5 -Total Square Cm 109.20 117 -Wound/Ulcer Outcome Not Healed Not Healed -Ulcer Cleansing Rinsed/ Rinsed/ Irrigated with Irrigated with Saline Saline -Foul Odor after Cleansing No No -Bioengineered Tissue No No -Bleeding Controlled with Pressure Pressure -Offloading No No -Treatment Response Procedure Procedure Tolerated Well Tolerated Well #23 right post LE -Time 12:34 14:36 -Correct Patient Yes Yes -Correct Side, Site, Position Yes Yes -Correct Procedure Yes Yes -Procedure Performed Yes Yes -Type of Procedure Debridement Debridement -Clinical Debridement Subcutaneous Subcutaneous -Post Debridement Size (cm) - Length 3.0 4 -Post Debridement Size (cm) - Width 3.5 3.8 -Post Debridement Size (cm) - Depth 1.4 0.6 -Total Square Cm 10.50 15.2 -Wound/Ulcer Outcome Not Healed Not Healed -Ulcer Cleansing Rinsed/ Rinsed/ Irrigated with Irrigated with Saline Saline -Foul Odor after Cleansing No No -Bioengineered Tissue No No -Bleeding Controlled with Pressure Pressure -Offloading No No -Treatment Response Procedure Procedure Tolerated Well Tolerated Well #22 Left Post LE -Time 12:33 14:37 -Correct Patient Yes Yes -Correct Side, Site, Position Yes Yes -Correct Procedure Yes Yes -Procedure Performed Yes Yes -Type of Procedure Debridement Debridement -Clinical Debridement Subcutaneous Subcutaneous -Post Debridement Size (cm) - Length 4.2 4.3 -Post Debridement Size (cm) - Width 3.5 3.5 -Post Debridement Size (cm) - Depth 1.5 1.0 -Total Square Cm 14.70 15.05 -Wound/Ulcer Outcome Not Healed Not Healed -Ulcer Cleansing Rinsed/ Rinsed/ Irrigated with Irrigated with Saline Saline -Foul Odor after Cleansing No No -Bioengineered Tissue No No -Bleeding Controlled with Pressure Pressure -Offloading No No -Treatment Response Procedure Procedure Tolerated Well Tolerated Well Pain Scale: 0-10 Numeric Is Patient Pain Free? Yes Yes Wound debrided: Anterior lateral leg ulcer Laterality: Right Type of Debridement: Excisional debridement Anesthesia Used: 5% Lidocaine Gel Depth: Down to and including healthy tissue, in the subcutaneous layer Percentage of wound debrided: 100 Instrument Used: 5mm curette Tissue Removed: Subcutaneous tissue and slough Severity: Fat Layer Exposed Amount of bleeding with debridement: Mild Bleeding Controlled with: Pressure Patient tolerated procedure well - Additional Wound Wound debrided: Posterior leg ulcer Laterality: Right Type of Debridement: Excisional debridement Anesthesia Used: 4% Lidocaine Solution Depth: Down to and including healthy tissue, in the subcutaneous layer Percentage of wound debrided: 100 Instrument Used: 5mm curette Tissue Removed: Subcutaneous tissue and slough Severity: Fat Layer Exposed Amount of bleeding with debridement: Mild Bleeding Controlled with: Pressure Patient tolerated procedure: Patient tolerated procedure well - Additional Wound Wound debrided: Posterior leg ulcer Laterality: Left Type of Debridement: Excisional debridement Anesthesia Used: 4% Lidocaine Solution Depth: Down to and including healthy tissue, in the subcutaneous layer Percentage of wound debrided: 100 Instrument Used: 5mm curette Tissue Removed: Subcutaneous tissue and slough Severity: Fat Layer Exposed Amount of bleeding with debridement: Mild Bleeding Controlled with: Pressure Patient tolerated procedure: Patient tolerated procedure well Assessment/Plan Active Problems (Last Reviewed 01/13/19 @ 10:41 by Maribell Dougherty) Ulcer of right lower leg (Chronic) Ulcer of left lower leg (Chronic) Ulcer of right calf (Chronic) Bilateral lower extremity edema (Chronic) Type 2 diabetes mellitus (Chronic) Venous insufficiency of both lower extremities (Chronic) Assessment: Same as above. Plan: On 01/06/19 patient underwent surgery for 1. Surgical preparation right anterolateral leg with incision and drainage and evacuation and excisional debridement infected hematoma with overlying skin necrosis (85.5 cm2). 2. Surgical preparation right proximal posteromedial leg with incision and drainage and evacuation and excisional debridement infected hematom with overlying skin necrosis (22.5 cm2). 3. Surgical preparation left proximal posteromedial leg with incision and drainage and evacuation and excisional debridement infected hematoma with overlying skin necrosis (30 cm2). She had fallen a week prior at home. She has history of chronic bilateral leg edema with venous insufficiency as well as chronic bilateral leg wounds. Upon admission her Hgb was 7.8. She received PRBC. Because of the cellulitis, she was started on IV antibiotics. She is currently on Cleocin and Meropenem. Surgical wound culture to right anterior lateral ulcer positive for Klebsiella pneumoniae sp pneum. Cultures from right proximal posterior medial ulcer positive for Klebsiella pneumoniae sp pneum, Pseudomonas aeroginosa. Cultures from left proximal posterior medial ulcer positive for Klebsiella pneumoniae sp pneum. Wound care: stop VAC per patient request. Will do daily 1/4 strength Dakin's solution to the ulcers. JASMINE wrap for compression. Her periwound redness resolved after the VAC holiday. Instructed to wash wound and char wound daily with soap and water. She has a history of frequent falls. She is currently at the [facility] since this past hospitalization. She denies fevers. Encouraged increase protein intake. Follow up one week. Code Visit [id number]: [id number] Dari subq tissue 20 sq cm/< Add On Codes: 81903 Dari subq tissue add-on - x7
== END 2019-02-04 23:59 ==
LOC: WC 13:30
PROVIDERS: Family Provider Family Medicine Geriatric Medicine; PCP Family Medicine Geriatric Medicine; Referring Provider Podiatrist; Visit Provider Internal Medicine
DX: E11.622 Type 2 diabetes mellitus with other skin ulcer (principal); L97.822 Non-pressure chronic ulcer of other part of left lower leg with fat layer exposed; I87.2 Venous insufficiency (chronic) (peripheral); L97.812 Non-pressure chronic ulcer of other part of right lower leg with fat layer exposed; R60.0 Localized edema; R29.6 Repeated falls; L97.821 Non-pressure chronic ulcer of other part of left lower leg limited to breakdown of skin
CPT/HCPCS: 11042; 11045

== ENCOUNTER 2019-02-06 20:14 | Inpatient (IN) | payer MEDICARE, SELFPAY ==
[2019-02-06] VITALS (8 sets, daily range): BP systolic 136–153; BP diastolic 55–74; PULSE 70–89; RESP 14–24; TEMP 37.4–38; O2SAT 83–96; BMI 38.2
--- NOTE | 2019-02-06 21:03 | EKG12_ITS ---
Test Reason : DYSRHYTHMIA Blood Pressure : / mmHG Vent. Rate : 077 BPM Atrial Rate : 077 BPM P-R Int : 164 ms QRS Dur : 082 ms QT Int : 408 ms P-R-T Axes : 023 008 075 degrees QTc Int : 461 ms Normal sinus rhythm Nonspecific ST and T wave abnormality Abnormal ECG Confirmed by BLACK HATCH, PARDEEP ([id number]), publication editor BOBBY VELA ([id number]) on 02/10/2019 12:43:33 PM Referred By: Oziel Angel Confirmed By:PARDEEP CLEANING MD
[2019-02-06 21:32] LABS: Absolute Lymphocyte Count 1.58 X10^3/uL (0.83-4.51); Absolute Neutrophil Count 16.4 X10^3/uL (2.0-7.7); Basophil# 0.05 X10^3/uL; Basophil% 0.3 % (0-1); Eosinophil# 0.08 X10^3/uL; Eosinophils% 0.4 % (0-5); Hematocrit 37.8 % (37-47); Hemoglobin 11.6 g/dL (12.0-15.0); Lymphocyte # 1.58 X10^3/ul (4.0); Lymphocyte % 8.3 % (19-41); Mean Corp Hgb Conc 30.7 g/dL (32-36); Mean Corpuscular Hgb 27.9 pg (27.0-32.0); Mean Corpuscular Volume 90.9 fL (81-99); Mean Platelet Vol. 10.3 fl (6.2-12.0); Monocyte# 0.88 X10^3/uL; Monocyte% 4.6 % (0-10); NRBC Flagged by Analyzer 0 % (0-5); Neutrophil # 16.39 X10^3/uL (2.7-7.7); Neutrophil % 85.8 % (47-70); Platelet Count 242 K/mm3 (150-450); RBC Distribution Width CV 15.7 % (11.6-14.6); RBC Distribution Width SD 51.6 fl (35.1-43.9); Red Blood Count 4.16 M/mm3 (4.2-5.4); White Blood Count 19.1 K/mm3 (4.4-11.0)
[2019-02-06 21:35] LABS: International Normalized Ratio 1.3; Prothrombin Time (Protime)PT. 16.1 SECONDS (11.7-14.9)
[2019-02-06 21:35] LABS: Mucous, Urine 0 SEEN /hpf (<or=2+); Red Blood Cells-Urine 0 SEEN /hpf (0-5)
[2019-02-06 21:36] LABS: Partial Thromboplast Time 32.6 Seconds (24.1-36.2)
[2019-02-06 21:44] LABS: ALB/GLOB Ratio 0.8 RATIO (0.9-2.4); AST(SGOT) 20 U/L (15-37); Alanine Aminotransfer ALT/SGPT 17 U/L (13-56); Albumin, Serum 2.8 g/dL (3.2-5.0); Alkaline Phosphatase 82 U/L (45-117); Anion Gap 9 (5-15); BUN 11 mg/dL (7-18); BUN/Creat Ratio 10.2 RATIO (10-20); Calcium,Total 8.7 mg/dL (8.5-10.1); Chloride 105 mmol/L (98-107); Creatinine, Serum 1.08 mg/dL (0.55-1.02); EST Glomerular Filtration Rate 53 mL/min (>60); Est Glom Filt Rate - Afr Amer 64 mL/min (>60); Estimated Creatinine Clearance 32.33 ml/min; Globulin 3.3 g/dL (2.2-4.2); Glucose 154 mg/dL (74-106); Potassium 3.2 mmol/L (3.5-5.1); Protein, Total 6.1 g/dL (6.4-8.2); Sodium Level 142 mmol/L (136-145)
--- NOTE | 2019-02-06 21:45 | RAD_ITS ---
STUDY: X-RAY CHEST REASON FOR EXAM: Female, 74 years old. FEVER, COUGH, SHORTNESS OF BREATH. STARTED 2 DAYS AGO. HYPOXIC AT [facility]. TECHNIQUE: 2 views COMPARISON: Prior chest radiograph of December 13, 2018 FINDINGS: New bilateral lower lung zone infiltrates. Negative for substantial pleural effusion. Stable mild cardiomegaly. Status post prior midline sternotomy. Normal visualized pulmonary arteries. There is atherosclerotic calcification of the aortic arch with tortuosity. Degenerative changes of the thoracic spine with a generally increased kyphosis. Normal visualized ribs, clavicles, and shoulders. There is no demonstrated abnormality of the visualized soft tissue structures of the upper abdomen. RAD/Chest PA and Lateral IMPRESSION: New bibasilar pulmonary infiltrates, potential pneumonic process. Stable cardiomegaly status post prior midline sternotomy. Electronically Signed: Cecilia Marsh MD at 22:08 EST , Service support ,
[2019-02-06 21:47] LABS: Color, Urine Yellow (Yellow); Glucose, Dipstick Normal (Normal); Ketone-Dipstick Negative (Negative); Leukocyte Esterase-Dipstick Negative /ul (Negative); Nitrite-Dipstick Negative (Negative); Occult Blood-Urine 25 /ul (Negative); Protein-Dipstick 100 mg/dl (Negative); Urine Bilirubin Dipstick Negative (Negative); Urine Clarity Sl. Cloudy (Clear); Urine Urobilinogen Normal (Normal)
[2019-02-06 21:55] LABS: Lactic Acid 1.2 mmol/L (0.4-1.9)
[2019-02-06 22:21] LABS: White Blood Cells 5-10 SEEN /hpf (0-5)
[2019-02-06 22:22] LABS: Amorphous Sediment 1+; Bacteria 1+ /hpf (None Seen); Squamous Epithelial Cells - UA 0-5 SEEN /hpf (5-10)
--- NOTE | 2019-02-06 22:47 | ED.VISSUMM ---
- ER Visit Summary Date of Service: 02/06/19 Chief Complaint: Fever and shortness of breath History of Present Illness: The patient is a 74 F who presents with fever and shortness of breath that has been getting worse over the past 3 days. Patient states her breathing improves when she is on oxygen. Patient states she is coughing up some yellow sputum. Patient states she had a temperature of 100.[address] [facility]. Patient also admits to some rhinorrhea. Patient denies any chest pain. Patient admits to some nausea, vomiting, and diarrhea. Patient also admits to some dysuria. Patient denies any abdominal pain. Physical Examination: Vital signs are stable except for mild tachypnea of 20. Patient has a temperature of 100.4 here. Patient has a pulse ox reading of 83% on room air. Oral mucosa is pink and moist. Neck is supple. Trachea is midline. There is no JVD. Heart was regular rate and rhythm. Lungs showed diffuse rhonchi. There is good respiratory effort noted. Abdomen is soft. Bowel sounds are normal. There is no tenderness. Cranial nerves II through XII are intact. There are no focal motor or sensory deficits noted. Skin is warm dry. There are chronic ulcers on the lower extremities bilaterally. Test Results: CBC shows a leukocytosis of 19.1. Basic metabolic profile was essentially within normal limits. INR is 1.3. Urinalysis shows 5-10 white blood cells and 1+ bacteria. EKG showed normal sinus rhythm with a rate of 77. There are no acute ST or T wave changes. PA and lateral chest x-ray was obtained. There are bibasilar infiltrates. These were interpreted by the radiologist and myself. Lactate was normal at 1.2. Emergency Department Course and Treatment: Patient was started on meropenem and doxycycline. Patient was given a dose of Tylenol here. Blood cultures were obtained. Patient was feeling better on reevaluation. Case was discussed with the hospitalist. He will admit the patient to his service. Patient understood and was agreeable with the plan. All questions were answered. Disposition: Admit to hospital Impression: 1. Pneumonia 2. Hypoxemia This note was generated with Six[employer]ation software. It may contain incorrect words, spelling, and punctuation that were not noted in review of the chart prior to signing ED Disposition - Plan for ED Patient: Referrals: Uriel Mac MD [Primary Care Provider] -
--- NOTE | 2019-02-06 23:01 | PCM.HP.STD ---
Problem List (1) Sepsis Status: Acute (2) Community acquired pneumonia Status: Acute (3) Ulcer of right lower leg Status: Chronic (4) Ulcer of left lower leg Status: Chronic (5) Ulcer of right calf Status: Chronic (6) Chronic GI bleeding Status: Chronic (7) GERD (gastroesophageal reflux disease) Status: Chronic (8) Dementia Status: Chronic (9) Restrictive airway disease Status: Chronic (10) LAURITA (obstructive sleep apnea) Status: Chronic (11) Bilateral lower extremity edema Status: Chronic (12) Open wound of right knee Status: Chronic Comment: Traumatic,penetratiung with fat layer exposed. (13) Essential hypertension Status: Chronic (14) Type 2 diabetes mellitus Status: Chronic (15) Venous insufficiency of both lower extremities Status: Chronic (16) Diastolic CHF Status: Chronic (17) Iron deficiency anemia Status: Chronic Comment: etiology unknown (18) Ulcer of right lower extremity with fat layer exposed Status: Chronic (19) Ulcer of right foot with fat layer exposed Status: Chronic (20) Ulcer of left lower extremity with fat layer exposed Status: Chronic (21) PVD (peripheral vascular disease) Status: Chronic (22) Presence of stent in coronary artery Status: Chronic Comment: PTCA/stent to CX; PTCA/Stent PTCA/stent to prox RCA 05/06; PTCA/LILY in mid to distal RCA 08/29/12 (23) Atherosclerotic heart disease of [place] coronary artery without angina pectoris Status: Chronic Qualifiers: Comment: PTCA/stent to CX; PTCA/Stent PTCA/stent to prox RCA 05/06; PTCA/LILY in mid to distal RCA 08/29/12; CABG x2 ARREGUIN tp LAD and SVG to OM2 01/02/11 (24) S/P CABG (coronary artery bypass graft) Status: Chronic Comment: CABG x2 ARREGUIN tp LAD and SVG to OM2 01/02/11 (25) Paroxysmal atrial fibrillation Status: Chronic (26) Hyperlipidemia Status: Chronic Qualifiers: History of Present Illness Date of Admission: 02/07/19 Chief Complaint: SOB The patient is a 74 year old F with a significant history of multiple sclerosis; trigeminal neuralgia; hypertension; diabetes mellitus; COPD; CAD status post CABG and stents; and who lives at a nursing presenting with 3-day history of persistent shortness of breath. Associated with her symptoms is productive cough of yellowish sputum. Further she has nausea; vomiting; diarrhea; chills and rigors. At the retirement her temperature was 100.5F. She denies any sore throat or rhinorrhea. Her T-max at the emergency department was 100.4. She had respiratory rate as high as 24. patient had neutrophilic leukocytosis with white count of 19.1. Chest x-ray was remarkable for new bibasilar infiltrates. Lactic acid was unremarkable. Blood cultures were obtained. Patient was placed on broad-spectrum antibiotics of Merrem and doxycycline Past Medical History Past Medical History (Chronic Problems): Chronic Problems (Last Reviewed 02/07/19 @ 00:24 by Oziel Angel MD) Ulcer of right lower leg (Chronic) Ulcer of left lower leg (Chronic) Ulcer of right calf (Chronic) Chronic GI bleeding (Chronic) GERD (gastroesophageal reflux disease) (Chronic) Dementia (Chronic) Restrictive airway disease (Chronic) LAURITA (obstructive sleep apnea) (Chronic) Bilateral lower extremity edema (Chronic) Open wound of right knee (Chronic) Traumatic,penetratiung with fat layer exposed. Essential hypertension (Chronic) Type 2 diabetes mellitus (Chronic) Venous insufficiency of both lower extremities (Chronic) Diastolic CHF (Chronic) Iron deficiency anemia (Chronic) etiology unknown Ulcer of right lower extremity with fat layer exposed (Chronic) Ulcer of right foot with fat layer exposed (Chronic) Ulcer of left lower extremity with fat layer exposed (Chronic) PVD (peripheral vascular disease) (Chronic) Presence of stent in coronary artery (Chronic ~08/29/12) PTCA/stent to CX; PTCA/Stent PTCA/stent to prox RCA 05/06; PTCA/LILY in mid to distal RCA 08/29/12 Atherosclerotic heart disease of [place] coronary artery without angina pectoris (Chronic) PTCA/stent to CX; PTCA/Stent PTCA/stent to prox RCA 05/06; PTCA/LILY in mid to distal RCA 08/29/12; CABG x2 ARREGUIN tp LAD and SVG to OM2 01/02/11 S/P CABG (coronary artery bypass graft) (Chronic ~01/02/11) CABG x2 ARREGUIN tp LAD and SVG to OM2 01/02/11 Paroxysmal atrial fibrillation (Chronic) Hyperlipidemia (Chronic) Medical History: Medical History (Last Reviewed 02/07/19 @ 00:24 by Oziel Angel MD) Essential hypertension (Chronic) I10 Type 2 diabetes mellitus (Chronic) E11.9 Diastolic CHF (Chronic) I50.30 Iron deficiency anemia (Chronic) D50.9 etiology unknown Ulcer of right lower extremity with fat layer exposed (Chronic) L97.912 Ulcer of right foot with fat layer exposed (Chronic) L97.512 Ulcer of left lower extremity with fat layer exposed (Chronic) L97.922 PVD (peripheral vascular disease) (Chronic) I73.9 Presence of stent in coronary artery (Chronic) Onset Date: ~08/29/12 Z95.5 PTCA/stent to CX; PTCA/Stent PTCA/stent to prox RCA 05/06; PTCA/LILY in mid to distal RCA 08/29/12 Atherosclerotic heart disease of [place] coronary artery without angina pectoris (Chronic) I25.10 PTCA/stent to CX; PTCA/Stent PTCA/stent to prox RCA 05/06; PTCA/LILY in mid to distal RCA 08/29/12; CABG x2 ARREGUIN tp LAD and SVG to OM2 01/02/11 Paroxysmal atrial fibrillation (Chronic) I48.0 Hyperlipidemia (Chronic) E78.5 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 Diabetic ulcer of both lower extremities E11.622, L97.919, L97.929 History of DVT (deep vein thrombosis) Z86.718 Trigeminal neuralgia G50.0 Multiple sclerosis G35 LAURITA (obstructive sleep apnea) G47.33 Peripheral vascular disease I73.9 Venous insufficiency of both lower extremities I87.2 Cognitive impairment (Inactive) R41.89 patient is confused at times Allergies codeine Allergy (Unknown, Verified 01/22/19 10:07) Hives cefazolin Allergy (Verified 01/22/19 10:07) Rash ciprofloxacin [From Cipro] Allergy (Verified 01/22/19 10:07) Hives ciprofloxacin HCl [From Cipro] Allergy (Verified 01/22/19 10:07) Hives Latex, Natural Rubber Allergy (Verified 01/22/19 10:07) Rash Penicillins [PCN] Allergy (Verified 01/22/19 10:07) Hives vancomycin Allergy (Verified 01/22/19 10:07) Angioedema adhesive tape Adverse Reaction (Verified 01/22/19 10:07) Rash Home Medications: Ambulatory Orders Medication Instructions Recorded Amiodarone HCl 200 mg PO DAILY 04/09/18 Duloxetine HCl 60 mg PO DAILY 04/09/18 Magnesium Oxide [Mag-Ox 400] 400 mg PO BID 04/09/18 Metoprolol Tartrate [Lopressor 50 mg PO BID 04/09/18 (beta man)] Pantoprazole Sodium [Protonix] 40 mg PO DAILY 04/09/18 Ergocalciferol (Vitamin D2) 50,000 unit PO MO 05/22/18 [Vitamin D2] Donepezil HCl 5 mg PO QHS 08/19/18 Potassium Chloride [Klor-Con M20] 20 meq PO BID 08/19/18 ferrous sulfate 325 mg (65 mg 325 mg PO DAILY 09/25/18 iron) tablet,delayed release Amlodipine [Norvasc] 2.5 mg PO DAILY 12/13/18 hydrALAZINE [Apresoline] 50 mg PO TID 01/04/19 Acetaminophen [Tylenol Tablet] 650 mg PO Q6H PRN PRN tab 01/08/19 Furosemide [Lasix] 40 mg PO DAILY 02/06/19 Gabapentin 600 mg PO BID 02/06/19 Oxycodone HCl 5 mg PO Q4H PRN PRN 02/06/19 Apixaban [Eliquis] 2.5 mg PO BID 02/07/19 Surgical History: Surgical History (Last Reviewed 01/13/19 @ 10:41 by Maribell Dougherty) S/P CABG (coronary artery bypass graft) (Chronic) Onset Date: ~01/02/11 Z95.1 CABG x2 ARREGUIN tp LAD and SVG to OM2 01/02/11 History of cataract surgery Z98.49 History of cholecystectomy Z98.890, Z90.49 History of hernia repair Z98.890, Z87.19 History of tonsillectomy and adenoidectomy Z98.890 History of total hysterectomy Z98.890, Z90.710 Postsurgical percutaneous transluminal coronary angioplasty (PTCA) status Z98.61 PTCA/stent to CX; PTCA/Stent PTCA/stent to prox RCA 05/06; PTCA/LILY in mid to distal RCA 08/29/12 Presence of coronary angioplasty implant and graft Onset Date: ~08/29/12 Z95.5 PTCA/stent to CX; PTCA/Stent PTCA/stent to prox RCA 05/06; PTCA/LILY in mid to distal RCA 08/29/12 Surgical History: angioplasty, appendectomy, cholecystectomy, coronary bypass surgery, hysterectomy, tonsillectomy, - Psychiatric History: No 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 hx 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 Sibling Family History: Family History (Last Reviewed 02/07/19 @ 01:17 by Oziel Angel MD) Father Heart disease Cancer Mother Hypertension Cancer Breast cancer Brother Diabetes Hypertension History Items: Diabetes Review of Systems Constitutional: Reports: Anorexia, Chills, Fever. Denies: Weight Change HEENT: Denies: Head Aches, Sinus Congestion, Sinus Drainage Cardiovascular: Denies: Chest Pain, Palpitations Respiratory: Reports: Cough, Shortness of Breath, Sputum production, Wheezing Gastrointestinal: Reports: Diarrhea, Nausea, Vomiting. Denies: Abdominal Pain Genitourinary: Denies: Dysuria Musculoskeletal: Denies: Joint Pain, Joint Tenderness Skin: Denies: Rash, Wounds Neurological: Denies: Numbness, Tingling, Focal weakness Psychiatric: Denies: Homicidal Ideations, Suicidal Ideations Hematologic/ Lymphatic: Denies: Easy Bruising, Easy Bleeding VTE Information - Inpt Only VTE Present on Admission: No VTE Mechan Device Prophylaxis: None VTE Pharm Prophylaxis ordered?: Yes Patient Problems: Active and Suspected Problems (Last Reviewed 02/07/19 @ 00:24 by Oziel Angel MD) Sepsis (Acute) Community acquired pneumonia (Acute) - Physical Exam Vitals/I&O's: Vital Signs Temp Pulse Resp BP Pulse Ox 99.3 F H 74 14 141/71 H 93 02/06/19 21:32 02/06/19 21:32 02/06/19 21:32 02/06/19 21:32 02/06/19 21:32 Oxygen Flow Rate (L/min) 4 Oxygen Delivery Method Nasal Cannula Weight: 88.904 kg Body Mass Index (BMI) 38.2 Finger Stick Blood Glucose 187 General: Alert, Oriented x3, Cooperative HEENT: Atraumatic, PERRLA, EOMI, Normocephalic Neck: Supple, No JVD, Negative Carotid Bruits Lungs: Rhonchi, Tachypneic, Using Accessory Muscles, Wheezes Cardiovascular: Regular rate, Normal S1, Normal S2, No murmurs Abdomen: Bowel Sounds Present, Soft, Hyperactive Bowel Sounds Extremities: Edema - Bilateral legs, Tenderness Skin: Ulcer/ Wound - On bilateral legs, - - Edema bilateral legs Musculoskeletal: Tenderness - Bilateral legs Neurological: Cranial nerves II-XII grossly intact Psych/Mental Status: Normal Affect, Appropriate Laboratory Results 02/06/19 21:00: WBC 19.1 H, RBC 4.16 L, Hgb 11.6 L, Hct 37.8, MCV 90.9, MCH 27.9, MCHC 30.7 L, RDW Std Deviation 51.6 H, RDW Coeff of Carissa 15.7 H, Plt Count 242, MPV 10.3, Immature Gran % (Auto) 0.600, Neut % (Auto) 85.8 H, Lymph % (Auto) 8.3 L, Boundary % (Auto) 4.6, Eos % (Auto) 0.4, Baso % (Auto) 0.3, Absolute Neuts (auto) 16.4 H, Absolute Lymphs (auto) 1.58, Nucleated RBC % 0 02/06/19 21:00: PT 16.1 H, INR 1.3, APTT 32.6 02/06/19 21:00: Sodium 142, Potassium 3.2 L, Chloride 105, Carbon Dioxide 28.0, Anion Gap 9, BUN 11, Creatinine 1.08 H, Estim Creat Clear Calc 32.33, Est GFR (MDRD) Af Amer 64, Est GFR (MDRD) Non-Af 53 L, BUN/Creatinine Ratio 10.2, Glucose 154 H, Calcium 8.7, Total Bilirubin 0.70, AST 20, ALT 17, Alkaline Phosphatase 82, Total Protein 6.1 L, Albumin 2.8 L, Globulin 3.3, Albumin/Globulin Ratio 0.8 L 02/06/19 21:03: Lactic Acid 1.2 01/02/20 21:10: Urine Color Yellow, Urine Clarity Sl. Cloudy, Urine pH 5.0, Ur Specific Bill[place] 1.020, Urine Protein 100 H, Urine Glucose (UA) Normal, Urine Ketones Negative, Urine Occult Blood 25 H, Urine Nitrite Negative, Urine Bilirubin Negative, Urine Urobilinogen Normal, Ur Leukocyte Esterase Negative, Urine RBC 0 SEEN, Urine WBC 5-10 SEEN, Ur Squamous Epith Cells 0-5 SEEN, Amorphous Sediment 1+, Urine Bacteria 1+, Urine Mucus 0 SEEN Current Medications Meropenem 1 gm/ Sodium (Chloride) 120 mls @ 33 mls/hr IV X1 ONE Stop: 02/07/19 02:17 Doxycycline Hyclate 100 mg/ (Dextrose) 260 mls @ 250 mls/hr IV X1 ONE Stop: 02/06/19 23:42 Assessment/Plan All Active Problems (Last Reviewed 02/07/19 @ 00:24 by Oziel Angel MD) Sepsis (Acute) Community acquired pneumonia (Acute) The patient is a 74 year old F with a significant history of multiple sclerosis; trigeminal neuralgia; hypertension; diabetes mellitus; COPD; CAD status post CABG and stents; and who lives at a nursing presenting with 3-day history of persistent shortness of breath; productive cough of yellowish sputum; nausea; vomiting; diarrhea; fever; chills and rigors; and found to have a T-max of 100.4F; tachypnea; and found to have neutrophilic leukocytosis and radiographic finding of bilateral infiltrates consistent with sepsis secondary to community-acquired pneumonia. Sepsis secondary to community-acquired pneumonia. Lactic acid: 1.2 RR: Highest of 24 Heart rate: Highest of 89 Oxygen saturation: 83% on room air and 92 to 95% on 4 L nasal cannula Blood culture ?2 is pending; urinalysis showed proteinuria and occult blood Chest x-ray: Bilateral lower lobe infiltrates. Chest x-ray was independently reviewed and agree radiologist interpretation. Respiratory Gram stain and culture pending ordered Antibiotics: Because of multiple allergies including penicillin; cephalosporins; and ciprofloxacin patient was given Merrem and doxycycline at the emergency department. We will continue Merrem. Will get MRSA nasal swab to rule out MRSA. DuoNeb scheduled. Albuterol as needed Mucinex ordered Legionella antigen screen and Strep antigen ordered We will get rapid influenza screen. Trend CBC and BMP. Tylenol for fever Acute Exacerbation of COPD Patient with diffuse rhonchi and wheezes. Will give Solu-Medrol 125 mg x 1 and then schedule on daily prednisone. Breathing treatment as above. Rapid influenza screen ordered. Hypokalemia Potassium supplementation ordered. Trend BMP. Diabetes mellitus type II With complications including diabetic nephropathy. Proteinuria noted on urinalysis. Patient is hyperglycemic. Patient is not on any home insulin or hypoglycemic regimen. Daily BMP as blood glucose is still within hospital goal. Bilateral leg swelling and bilateral leg ulcer. Wet-to-dry dressing; and bilateral leg Kerlix roll until wound care see patient. Wound care consult. Elevate bilateral lower legs. Heart failure Lasix continued supplementation continued Hematuria Urinalysis showed proteinuria and positive urine occult blood. Patient can follow-up with further outpatient urinalysis. HTN On presentation blood pressure was not within goal Metoprolol; hydralazine amlodipine continued Dementia Aricept continued Paroxysmal A. fib Amiodarone and Eliquis continued. Metoprolol continued GERD: PPI continued Depression/anxiety: Cymbalta continued DVT prophylaxis Subcutaneous Lovenox Code Visit Inpatient E&M: 06477 Init Hosp L3
--- NOTE | 2019-02-06 23:31 | ED.RN ---
RN CALLED TO GIVE NURSE REPORT AT THIS TIME. UNABLE TO GET IN CONTACT WITH RN.
[2019-02-07] VITALS (22 sets, daily range): BP systolic 113–144; BP diastolic 56–78; PULSE 69–89; RESP 12–32; TEMP 36.6–37.2; O2SAT 93–99; BMI 41.5
--- NOTE | 2019-02-07 02:40 | NURSING ---
CPS notified of need for flu swab for this pt.
[2019-02-07] MEDS: Ipratropium/Albuterol Sulfate 3 ML AMPUL.NEB INHALATION ×5 (03:30→21:41)
[2019-02-07] MEDS: MethylPREDNISolone 125 MG/2 ML Vial IV (03:51)
[2019-02-07] MEDS: Acetaminophen 325 MG Tablet 650 MG PO (04:03)
[2019-02-07 04:46] LABS: Allen Test POS; Base Excess 10 mmol/L (-2 to +2); Bicarbonate 32.2 mmol/L (22-26); Blood Gas Specimen Type ART; O2 Delivery Device Nasal Can; PO2 67 mmHG (75-100); SITE R Radial; SO2 95 % (95-99); Time Given 430; Total Carbon Dioxide 33 mmol/L; pCO2 38.1 mmHg (35-45); pH 7.54 (7.35-7.45)
[2019-02-07 04:50] LABS: Probe Check PASS
[2019-02-07 04:51] LABS: M R Staph aureus DNA By PCR POSITIVE (Negative)
[2019-02-07] MEDS: hydrALAZINE 50 MG Tablet PO ×3 (05:06→20:21)
[2019-02-07 05:32] LABS: Absolute Lymphocyte Count 0.48 X10^3/uL (0.83-4.51); Absolute Neutrophil Count 13.6 X10^3/uL (2.0-7.7); Basophil# 0.02 X10^3/uL; Basophil% 0.1 % (0-1); Eosinophil# 0.02 X10^3/uL; Eosinophils% 0.1 % (0-5); Hematocrit 34.4 % (37-47); Hemoglobin 10.4 g/dL (12.0-15.0); Lymphocyte # 0.48 X10^3/ul (4.0); Lymphocyte % 3.3 % (19-41); Mean Corp Hgb Conc 30.2 g/dL (32-36); Mean Corpuscular Volume 89.4 fL (81-99); Mean Platelet Vol. 10.3 fl (6.2-12.0); Monocyte% 2.7 % (0-10); NRBC Flagged by Analyzer 0 % (0-5); Neutrophil # 13.63 X10^3/uL (2.7-7.7); POSITIVE DIFFERENTIAL YES; Platelet Count 204 K/mm3 (150-450); RBC Distribution Width CV 15.9 % (11.6-14.6); RBC Distribution Width SD 51.1 fl (35.1-43.9); Red Blood Count 3.85 M/mm3 (4.2-5.4); White Blood Count 14.7 K/mm3 (4.4-11.0)
[2019-02-07 05:38] LABS: Differential Indicated SCAN CRITERIA MET
[2019-02-07 05:45] LABS: Anion Gap 7 (5-15); BUN 10 mg/dL (7-18); BUN/Creat Ratio 10.8 RATIO (10-20); Calcium,Total 8.1 mg/dL (8.5-10.1); Chloride 104 mmol/L (98-107); Creatinine, Serum 0.92 mg/dL (0.55-1.02); EST Glomerular Filtration Rate 63 mL/min (>60); Est Glom Filt Rate - Afr Amer 76 mL/min (>60); Estimated Creatinine Clearance 37.95 ml/min; Glucose 119 mg/dL (74-106); Potassium 3.1 mmol/L (3.5-5.1); Sodium Level 140 mmol/L (136-145)
--- NOTE | 2019-02-07 07:29 | NURSING ---
upon rounding, pt was pulling at bipap mask and asked for it to be removed. replaced with 4L NC, added humidification, and placed on continuous pulse ox as nursing measure. upon reassessment, pt resting comfortably in bed with resps 25, 97% on 4L, and HR 74. will continue to monitor.
[2019-02-07 08:25] LABS: BNP,B-Type NATRIURETIC PEPTIDE 908.6 pg/mL (0-100)
[2019-02-07] MEDS: Pantoprazole Sodium 40 MG Tablet PO (09:43)
[2019-02-07] MEDS: predniSONE 20 MG Tablet 40 MG PO (09:43)
[2019-02-07] MEDS: amLODIPine 2.5 MG Tablet PO (09:43)
[2019-02-07] MEDS: Ferrous Sulfate 325 MG Tablet PO (09:43)
[2019-02-07] MEDS: guaiFENesin 1,200 MG Tablet 1200 MG PO ×2 (09:43→20:21)
[2019-02-07] MEDS: Gabapentin 600 MG Tablet PO ×2 (09:43→20:22)
[2019-02-07] MEDS: APIXABAN 2.5 MG TABLET PO ×2 (09:51→20:22)
[2019-02-07] MEDS: Metoprolol Tartrate 50 MG Tablet PO ×2 (09:51→20:21)
[2019-02-07] MEDS: DULoxetine Hcl 20 MG Capsule PO (09:51)
[2019-02-07] MEDS: Magnesium Oxide 400 MG Tablet PO ×2 (09:51→20:21)
[2019-02-07] MEDS: Amiodarone 200 MG Tablet PO (09:51)
--- NOTE | 2019-02-07 09:54 | CASEMGMT ---
Addendum entered by Digna Palumbo 02/07/19 12:36: JAGDEEP faxed PT/OT to [facility] and wrote on fax coversheet to submit for pre-cert. JAGDEEP placed green sheet on chart in the event pre-cert is obtained and pt is able to discharge to [facility] this weekend. Transport form on pt's chart. Addendum entered by Digna Palumbo 02/07/19 10:23: JAGDEEP met with pt and introduced self and role at [facility]. Pt is alert and orientated x3. SW familiar with pt from previous visits. Pt confirms that she came from [facility] and her plan is to return. JAGDEEP updated pt that pre-cert will need to be obtained again before pt is able to return. Pt states understanding. Plan: Return to [facility] pending pre-cert Original Note: Social Work Note Pt is listed as being from [facility]. JAGDEEP placed a call to Quiana at [facility]. Quiana states pt is skilled and will be returning skilled but will need pre-cert. JAGDEEP faxed updated clinicals to [facility]. Digna Palumbo CHANGE MANAGEMENT ADMINISTRATOR, MEDIA STRATEGIST
--- NOTE | 2019-02-07 13:43 | NURSING ---
wound photo: right lateral lower leg
--- NOTE | 2019-02-07 13:44 | NURSING ---
wound photo: right medial lower leg
--- NOTE | 2019-02-07 13:45 | NURSING ---
wound photo: left medial lower leg
--- NOTE | 2019-02-07 14:42 | CON.PCM_ITS ---
Reason for Consult Date of Consultation: 02/07/19 Reason for Consultation: Respiratory failure History of Present Illness: The patient is a 74-year-old female, with a history as outlined below, who presented to the emergency department on February 06 with complaints of shortness of breath and low-grade fever. She has also been experiencing an intermittent mildly productive cough of yellow sputum. The patient has known mild restrictive lung disease based upon pulmonary function studies from December 2018. In addition, she has an established diagnosis of obstructive sleep apnea, for which she is noncompliant with the use of nocturnal Pap therapy. On presentation to the emergency department, the patient was noted to be febrile and tachypneic. Laboratory evaluation revealed an elevated white blood cell count to 19,000. MRSA screen was positive. Plain film chest x-ray revealed bibasilar pulmonary infiltration and blunting of the costophrenic angles. BNP was elevated to 908. The patient was started on broad-spectrum antimicrobial coverage. She was then admitted to the medical surgical floor for further management. The patient does have known heart failure with preserved ejection fraction based upon echocardiogram from April 2018. Past Medical History Past Medical History (Chronic Problems): Chronic Problems (Last Reviewed 02/07/19 @ 00:24 by Oziel Angel MD) Ulcer of right lower leg (Chronic) Ulcer of left lower leg (Chronic) Ulcer of right calf (Chronic) Chronic GI bleeding (Chronic) GERD (gastroesophageal reflux disease) (Chronic) Dementia (Chronic) Restrictive airway disease (Chronic) LAURITA (obstructive sleep apnea) (Chronic) Bilateral lower extremity edema (Chronic) Open wound of right knee (Chronic) Traumatic,penetratiung with fat layer exposed. Essential hypertension (Chronic) Type 2 diabetes mellitus (Chronic) Venous insufficiency of both lower extremities (Chronic) Diastolic CHF (Chronic) Iron deficiency anemia (Chronic) etiology unknown Ulcer of right lower extremity with fat layer exposed (Chronic) Ulcer of right foot with fat layer exposed (Chronic) Ulcer of left lower extremity with fat layer exposed (Chronic) PVD (peripheral vascular disease) (Chronic) Presence of stent in coronary artery (Chronic ~08/29/12) PTCA/stent to CX; PTCA/Stent PTCA/stent to prox RCA 05/06; PTCA/LILY in mid to distal RCA 08/29/12 Atherosclerotic heart disease of [place] coronary artery without angina pectoris (Chronic) PTCA/stent to CX; PTCA/Stent PTCA/stent to prox RCA 05/06; PTCA/LILY in mid to distal RCA 08/29/12; CABG x2 ARREGUIN tp LAD and SVG to OM2 01/02/11 S/P CABG (coronary artery bypass graft) (Chronic ~01/02/11) CABG x2 ARREGUIN tp LAD and SVG to OM2 01/02/11 Paroxysmal atrial fibrillation (Chronic) Hyperlipidemia (Chronic) Medical History: Medical History (Last Reviewed 02/07/19 @ 00:24 by Oziel Angel MD) Essential hypertension (Chronic) I10 Type 2 diabetes mellitus (Chronic) E11.9 Diastolic CHF (Chronic) I50.30 Iron deficiency anemia (Chronic) D50.9 etiology unknown Ulcer of right lower extremity with fat layer exposed (Chronic) L97.912 Ulcer of right foot with fat layer exposed (Chronic) L97.512 Ulcer of left lower extremity with fat layer exposed (Chronic) L97.922 PVD (peripheral vascular disease) (Chronic) I73.9 Presence of stent in coronary artery (Chronic) Onset Date: ~08/29/12 Z95.5 PTCA/stent to CX; PTCA/Stent PTCA/stent to prox RCA 05/06; PTCA/LILY in mid to distal RCA 08/29/12 Atherosclerotic heart disease of [place] coronary artery without angina pectoris (Chronic) I25.10 PTCA/stent to CX; PTCA/Stent PTCA/stent to prox RCA 05/06; PTCA/LILY in mid to distal RCA 08/29/12; CABG x2 ARREGUIN tp LAD and SVG to OM2 01/02/11 Paroxysmal atrial fibrillation (Chronic) I48.0 Hyperlipidemia (Chronic) E78.5 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 Diabetic ulcer of both lower extremities E11.622, L97.919, L97.929 History of DVT (deep vein thrombosis) Z86.718 Trigeminal neuralgia G50.0 Multiple sclerosis G35 LAURITA (obstructive sleep apnea) G47.33 Peripheral vascular disease I73.9 Venous insufficiency of both lower extremities I87.2 Cognitive impairment (Inactive) R41.89 patient is confused at times Allergies codeine Allergy (Unknown, Verified 01/22/19 10:07) Hives cefazolin Allergy (Verified 01/22/19 10:07) Rash ciprofloxacin [From Cipro] Allergy (Verified 01/22/19 10:07) Hives ciprofloxacin HCl [From Cipro] Allergy (Verified 01/22/19 10:07) Hives Latex, Natural Rubber Allergy (Verified 01/22/19 10:07) Rash Penicillins [PCN] Allergy (Verified 01/22/19 10:07) Hives vancomycin Allergy (Verified 01/22/19 10:07) Angioedema adhesive tape Adverse Reaction (Verified 01/22/19 10:07) Rash Home Medications: Ambulatory Orders Medication Instructions Recorded Amiodarone HCl 200 mg PO DAILY 04/09/18 Duloxetine HCl 60 mg PO DAILY 04/09/18 Magnesium Oxide [Mag-Ox 400] 400 mg PO BID 04/09/18 Metoprolol Tartrate [Lopressor 50 mg PO BID 04/09/18 (beta tommy)] Pantoprazole Sodium [Protonix] 40 mg PO BID 04/09/18 Ergocalciferol (Vitamin D2) 50,000 unit PO MO 05/22/18 [Vitamin D2] Donepezil HCl 5 mg PO QHS 08/19/18 Potassium Chloride [Klor-Con M20] 20 meq PO BID 08/19/18 ferrous sulfate 325 mg (65 mg 325 mg PO DAILY 09/25/18 iron) tablet,delayed release Amlodipine [Norvasc] 2.5 mg PO DAILY 12/13/18 hydrALAZINE [Apresoline] 50 mg PO TID 01/04/19 Acetaminophen [Tylenol Tablet] 650 mg PO Q6H PRN PRN tab 01/08/19 Furosemide [Lasix] 40 mg PO DAILY 02/06/19 Gabapentin 600 mg PO BID 02/06/19 Oxycodone HCl 5 mg PO Q4H PRN PRN 02/06/19 Apixaban [Eliquis] 2.5 mg PO BID 02/07/19 Surgical History: Surgical History (Last Reviewed 01/13/19 @ 10:41 by Maribell Dougherty) S/P CABG (coronary artery bypass graft) (Chronic) Onset Date: ~01/02/11 Z95.1 CABG x2 ARREGUIN tp LAD and SVG to OM2 01/02/11 History of cataract surgery Z98.49 History of cholecystectomy Z98.890, Z90.49 History of hernia repair Z98.890, Z87.19 History of tonsillectomy and adenoidectomy Z98.890 History of total hysterectomy Z98.890, Z90.710 Postsurgical percutaneous transluminal coronary angioplasty (PTCA) status Z98.61 PTCA/stent to CX; PTCA/Stent PTCA/stent to prox RCA 05/06; PTCA/LILY in mid to distal RCA 08/29/12 Presence of coronary angioplasty implant and graft Onset Date: ~08/29/12 Z95.5 PTCA/stent to CX; PTCA/Stent PTCA/stent to prox RCA 05/06; PTCA/LILY in mid to distal RCA 08/29/12 Surgical History: angioplasty, appendectomy, cholecystectomy, coronary bypass surgery, hysterectomy, tonsillectomy, - Psychiatric History: No 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 hx [employer] TRAINER History: No pertinent [employer] TRAINER history Lives: [facility] Smoking Status: Former smoker Alcohol: Rare - *Family History Maternal Family History: Family History (Last Reviewed 02/07/19 @ 01:17 by Oziel Angel MD) Father Heart disease Cancer Mother Hypertension Cancer Breast cancer Brother Diabetes Hypertension History Items: Heart Disease, Hypertension Paternal Family History: Family History (Last Reviewed 02/07/19 @ 01:17 by Oziel Angel MD) Father Heart disease Cancer Mother Hypertension Cancer Breast cancer Brother Diabetes Hypertension History Items: Heart Disease, Hypertension, - - skin cancer. Sibling Family History: Family History (Last Reviewed 02/07/19 @ 01:17 by Oziel Angel MD) Father Heart disease Cancer Mother Hypertension Cancer Breast cancer Brother Diabetes Hypertension History Items: Diabetes Review of Systems Constitutional: Reports: Fever, Fatigue Eyes: Denies: Blurred vision, Double vision HEENT: Denies: Head Aches, Sinus Congestion, Sinus Drainage Cardiovascular: Denies: Chest Pain, Palpitations Respiratory: Reports: Cough, Shortness of Breath, Sputum production Gastrointestinal: Denies: Abdominal Pain, Nausea, Vomiting Genitourinary: Denies: Dysuria Musculoskeletal: Denies: Joint Pain, Joint Tenderness Skin: Denies: Rash, Wounds Neurological: Denies: Numbness, Tingling, Focal weakness Psychiatric: Denies: Anxiety, Depression, Homicidal Ideations, Suicidal Ideations Hematologic/ Lymphatic: Reports: Anemia Patient Problems: Active and Suspected Problems (Last Reviewed 02/07/19 @ 00:24 by Oziel Angel MD) Sepsis (Acute) Community acquired pneumonia (Acute) Objective: The patient's most recent lab work, culture data and imaging studies have all been personally reviewed. - Physical Exam Vitals/I&O's: Vital Signs Temp Pulse Resp BP Pulse Ox 98.3 F 86 20 H 144/69 H 96 02/07/19 09:40 02/07/19 11:40 02/07/19 11:20 02/07/19 09:40 02/07/19 09:40 Oxygen Flow Rate (L/min) 4 Oxygen Delivery Method Nasal Cannula Weight: 212 lb 11.937 oz Body Mass Index (BMI) 41.5 Finger Stick Blood Glucose 187 Intake and Output for Last 24 Hours 02/05/19 02/06/19 02/07/19 23:59 23:59 23:59 Intake Total 900 / 900 Balance 900 / 900 General: Alert, Cooperative, No apparent distress, - - Sitting in bedside recliner HEENT: Atraumatic, PERRLA, Normocephalic Oral: No Gingival or Mucosal Lesions/ Ulcerations Neck: Supple, No Nodes, Trachea Midline Lungs: Diminished Cardiovascular: Regular rate, Regular Rhythm, Normal S1, Normal S2 Abdomen: Bowel Sounds Present, Soft, Non Tender, Obese Extremities: No clubbing, No cyanosis Skin: Ulcer/ Wound Musculoskeletal: No Muscle Wasting Lymphatic: No Cervical, Supraclavicular, or Inguinal Adenopathy Neurological: Cranial nerves II-XII grossly intact, Neuro grossly intact Psych/Mental Status: Normal Affect, Appropriate Labs (Last 48 Hours) 02/06/19 02/06/19 02/06/19 21:00 21:00 21:00 WBC 19.1 H RBC 4.16 L Hgb 11.6 L Hct 37.8 MCV 90.9 MCH 27.9 MCHC 30.7 L RDW Std Deviation 51.6 H RDW Coeff of Carissa 15.7 H Plt Count 242 MPV 10.3 Immature Gran % (Auto) 0.600 Neut % (Auto) 85.8 H Lymph % (Auto) 8.3 L [place] % (Auto) 4.6 Eos % (Auto) 0.4 Baso % (Auto) 0.3 Absolute Neuts (auto) 16.4 H Absolute Lymphs (auto) 1.58 Nucleated RBC % 0 PT 16.1 H INR 1.3 APTT 32.6 Specimen Type Sample Site pH Bicarbonate Actual POC Total CO2 Base Excess O2 Saturation ABG pCO2 ABG pO2 Rakesh Test O2 Delivery Device Liter Flow Blood Gas Notified Whom Blood Gas Notified Time Sodium 142 Potassium 3.2 L Chloride 105 Carbon Dioxide 28.0 Anion Gap 9 BUN 11 Creatinine 1.08 H Estim Creat Clear Calc 32.33 Est GFR (MDRD) Af Amer 64 Est GFR (MDRD) Non-Af 53 L BUN/Creatinine Ratio 10.2 Glucose 154 H Lactic Acid Calcium 8.7 Total Bilirubin 0.70 AST 20 ALT 17 Alkaline Phosphatase 82 B-Natriuretic Peptide Total Protein 6.1 L Albumin 2.8 L Globulin 3.3 Albumin/Globulin Ratio 0.8 L Urine Color Urine Clarity Urine pH Ur Specific [place] Urine Protein Urine Glucose (UA) Urine Ketones Urine Occult Blood Urine Nitrite Urine Bilirubin Urine Urobilinogen Ur Leukocyte Esterase Urine RBC Urine WBC Ur Squamous Epith Cells Amorphous Sediment Urine Bacteria Urine Mucus MRSA (PCR) 02/06/19 02/06/19 02/07/19 21:03 21:10 03:10 WBC RBC Hgb Hct MCV MCH MCHC RDW Std Deviation RDW Coeff of Carissa Plt Count MPV Immature Gran % (Auto) Neut % (Auto) Lymph % (Auto) [place] % (Auto) Eos % (Auto) Baso % (Auto) Absolute Neuts (auto) Absolute Lymphs (auto) Nucleated RBC % PT INR APTT Specimen Type Sample Site pH Bicarbonate Actual POC Total CO2 Base Excess O2 Saturation ABG pCO2 ABG pO2 Rakesh Test O2 Delivery Device Liter Flow Blood Gas Notified Whom Blood Gas Notified Time Sodium Potassium Chloride Carbon Dioxide Anion Gap BUN Creatinine Estim Creat Clear Calc Est GFR (MDRD) Af Amer Est GFR (MDRD) Non-Af BUN/Creatinine Ratio Glucose Lactic Acid 1.2 Calcium Total Bilirubin AST ALT Alkaline Phosphatase B-Natriuretic Peptide Total Protein Albumin Globulin Albumin/Globulin Ratio Urine Color Yellow Urine Clarity Sl. Cloudy Urine pH 5.0 Ur Specific [place] 1.020 Urine Protein 100 H Urine Glucose (UA) Normal Urine Ketones Negative Urine Occult Blood 25 H Urine Nitrite Negative Urine Bilirubin Negative Urine Urobilinogen Normal Ur Leukocyte Esterase Negative Urine RBC 0 SEEN Urine WBC 5-10 SEEN Ur Squamous Epith Cells 0-5 SEEN Amorphous Sediment 1+ Urine Bacteria 1+ Urine Mucus 0 SEEN MRSA (PCR) POSITIVE H 02/07/19 02/07/19 02/07/19 04:37 05:14 05:14 WBC 14.7 H RBC 3.85 L Hgb 10.4 L Hct 34.4 L MCV 89.4 MCH 27.0 MCHC 30.2 L RDW Std Deviation 51.1 H RDW Coeff of Carissa 15.9 H Plt Count 204 MPV 10.3 Immature Gran % (Auto) 0.800 Neut % (Auto) 93.0 H Lymph % (Auto) 3.3 L [place] % (Auto) 2.7 Eos % (Auto) 0.1 Baso % (Auto) 0.1 Absolute Neuts (auto) 13.6 H Absolute Lymphs (auto) 0.48 L Nucleated RBC % 0 PT INR APTT Specimen Type ART Sample Site R Radial pH 7.54 H Bicarbonate Actual 32.2 H POC Total CO2 33 Base Excess 10 H O2 Saturation 95 ABG pCO2 38.1 ABG pO2 67 L Rakesh Test POS O2 Delivery Device Nasal Can Liter Flow 4.0 Blood Gas Notified Whom [facility] MD Blood Gas Notified Time 430 Sodium 140 Potassium 3.1 L Chloride 104 Carbon Dioxide 29.0 Anion Gap 7 BUN 10 Creatinine 0.92 Estim Creat Clear Calc 37.95 Est GFR (MDRD) Af Amer 76 Est GFR (MDRD) Non-Af 63 BUN/Creatinine Ratio 10.8 Glucose 119 H Lactic Acid Calcium 8.1 L Total Bilirubin AST ALT Alkaline Phosphatase B-Natriuretic Peptide Total Protein Albumin Globulin Albumin/Globulin Ratio Urine Color Urine Clarity Urine pH Ur Specific [place] Urine Protein Urine Glucose (UA) Urine Ketones Urine Occult Blood Urine Nitrite Urine Bilirubin Urine Urobilinogen Ur Leukocyte Esterase Urine RBC Urine WBC Ur Squamous Epith Cells Amorphous Sediment Urine Bacteria Urine Mucus MRSA (PCR) 02/07/19 05:14 WBC RBC Hgb Hct MCV MCH MCHC RDW Std Deviation RDW Coeff of Carissa Plt Count MPV Immature Gran % (Auto) Neut % (Auto) Lymph % (Auto) [place] % (Auto) Eos % (Auto) Baso % (Auto) Absolute Neuts (auto) Absolute Lymphs (auto) Nucleated RBC % PT INR APTT Specimen Type Sample Site pH Bicarbonate Actual POC Total CO2 Base Excess O2 Saturation ABG pCO2 ABG pO2 Rakesh Test O2 Delivery Device Liter Flow Blood Gas Notified Whom Blood Gas Notified Time Sodium Potassium Chloride Carbon Dioxide Anion Gap BUN Creatinine Estim Creat Clear Calc Est GFR (MDRD) Af Amer Est GFR (MDRD) Non-Af BUN/Creatinine Ratio Glucose Lactic Acid Calcium Total Bilirubin AST ALT Alkaline Phosphatase B-Natriuretic Peptide 908.6 H Total Protein Albumin Globulin Albumin/Globulin Ratio Urine Color Urine Clarity Urine pH Ur Specific [place] Urine Protein Urine Glucose (UA) Urine Ketones Urine Occult Blood Urine Nitrite Urine Bilirubin Urine Urobilinogen Ur Leukocyte Esterase Urine RBC Urine WBC Ur Squamous Epith Cells Amorphous Sediment Urine Bacteria Urine Mucus MRSA (PCR) Microbiology 02/06/19 21:10 Urine Catheter - Catheter Urine Culture - Preliminary Gram negative james 02/07/19 03:40 Mucosa - Nasopharyngeal Influenza Types A,B Direct FA ([place]) - Final 02/06/19 21:12 Urine Catheter - Catheter Legionella Antigen - Final 02/06/19 21:12 Urine Catheter - Catheter Streptococcus pneumoniae Antigen (M - Final Clinical Impression(s) from Imaging Studies Chest X-Ray 02/06/19 21:45 IMPRESSION: New bibasilar pulmonary infiltrates, potential pneumonic process. Stable cardiomegaly status post prior midline sternotomy. Electronically Signed: Cecilia Marsh MD at 22:08 EST , Service support , Current Medications Acetaminophen (Tylenol) 650 mg PO Q6H PRN PRN PRN Reason: Pain Score 1-10/Temp > 100.7 F Last Admin: 02/07/19 04:03 Dose: 650 mg Documented by: Albuterol Sulfate (Ventolin Aerosols) 2.5 mg INHALATION Q2H PRN PRN PRN Reason: Shortness of Breath/Wheezing Albuterol/Ipratropium (Duoneb) 3 ml INHALATION Q4HWA.RT [facility] Last Admin: 02/07/19 11:21 Dose: 3 ml Documented by: Amiodarone HCl (Cordarone) 200 mg PO DAILY [facility] Last Admin: 02/07/19 09:51 Dose: 200 mg Documented by: Amlodipine Besylate (Norvasc) 2.5 mg PO DAILY [facility] Last Admin: 02/07/19 09:43 Dose: 2.5 mg Documented by: Apixaban (Eliquis) 2.5 mg PO BID [facility] Last Admin: 02/07/19 09:51 Dose: 2.5 mg Documented by: Donepezil HCl (Aricept) 5 mg PO QHS [facility] Duloxetine HCl (Cymbalta) 20 mg PO DAILY [facility] Last Admin: 02/07/19 09:51 Dose: 20 mg Documented by: Ergocalciferol (Vitamin D) 50,000 unit PO MO [facility] Ferrous Sulfate (Ferrous Sulfate) 325 mg PO DAILYCM [facility] Last Admin: 02/07/19 09:43 Dose: 325 mg Documented by: Gabapentin (Neurontin) 600 mg PO BID [facility] Last Admin: 02/07/19 09:43 Dose: 600 mg Documented by: Glucagon () 1 mg IM .X1 PRN PRN Reason: Hypoglycemia Guaifenesin (Mucinex) 1,200 mg PO BID [facility] Last Admin: 02/07/19 09:43 Dose: 1,200 mg Documented by: Hydralazine HCl (Apresoline) 50 mg PO TID [facility] Last Admin: 02/07/19 05:06 Dose: 50 mg Documented by: Meropenem 1 gm/ Sodium (Chloride) 120 mls @ 33 mls/hr IV Q12 [facility] Last Infusion: 02/07/19 13:30 Dose: Infused Documented by: Dextrose (Dextrose 10%-Water) 250 mls @ 999 mls/hr IV .Q16M PRN; Protocol PRN Reason: HYPOGLYCEMIA Magnesium Oxide (Mag-Ox 400) 400 mg PO BID [facility] Last Admin: 02/07/19 09:51 Dose: 400 mg Documented by: Melatonin (Melatonin) 3 mg PO QHS PRN PRN PRN Reason: INSOMNIA Metoprolol Tartrate (Lopressor (Beta Tommy)) 50 mg PO BID [facility] Last Admin: 02/07/19 09:51 Dose: 50 mg Documented by: Nutritional Formula (Lactose Free) (Glucerna Shake) 120 ml PO TIDCM [facility] Last Admin: 02/07/19 12:45 Dose: Not Given Documented by: Ondansetron HCl (Zofran) 4 mg IV Q8H PRN PRN PRN Reason: NAUSEA/VOMITING Pantoprazole Sodium (Protonix) 40 mg PO DAILY [facility] Last Admin: 02/07/19 09:43 Dose: 40 mg Documented by: Potassium Chloride (K-Dur) 20 meq PO BID [facility] Last Admin: 02/07/19 09:43 Dose: 20 meq Documented by: Prednisone () 40 mg PO DAILY@0800 [facility] Last Admin: 02/07/19 09:43 Dose: 40 mg Documented by: Sodium Hypochlorite (Dakins Solution 0.25% (1/2 Strength)) 1 applic TOPICAL BID [facility]ELISAS; Protocol Assessment/Plan All Active Problems (Last Reviewed 02/07/19 @ 00:24 by Oziel Angel MD) Sepsis (Acute) Community acquired pneumonia (Acute) RECOMMENDATIONS: 1. Continue empiric antimicrobials, pending infectious work-up. 2. Stop prednisone as the patient does not have a history of COPD. 3. Wean supplemental oxygen to maintain saturations at or above 90%. 4. Encourage incentive spirometer use and mobilize patient as tolerated. 5. Start Lasix, given elevated BNP. 6. Check respiratory viral panel. IMPRESSIONS: 1. Acute hypoxemic respiratory insufficiency secondary to possible community- acquired pneumonia versus heart failure exacerbation The patient did present to the hospital with an elevated white blood cell count and fever. Accordingly, she has been maintained on broad-spectrum antimicrobials, pending infectious work-up. She does have a known history of heart failure with preserved ejection fraction and does have an elevated BNP to greater than 900. Therefore, I would recommend that she also be placed on Lasix. Wean supplemental oxygen to maintain saturations at or above 90%. Encourage incentive spirometer use and mobilize patient as tolerated. 2. Hypokalemia Electrolyte repletion as ordered. Recheck levels in the morning. 3. Obstructive sleep apnea The patient has a known history of LAURITA and is currently noncompliant with the use of nocturnal Pap therapy. However, while admitted to the hospital, I would recommend that she be maintained on nocturnal BiPAP therapy with a pressure support of 12/6 centimeters of water. 4. Chronic lower extremity wounds/diabetes mellitus/obesity/ hypertension/paroxysmal atrial fibrillation/GERD Complicates care, management, recovery and prognosis. Continue home medications per outpatient regimen. This note was generated with [employer] dictation software. It may contain incorrect words, spelling, and punctuation that were not noted in checking the note before signing. Code Visit Inpatient E&M: 41953 Init Hosp L3
--- NOTE | 2019-02-07 14:48 | CHAPLAIN ---
Type of Pastoral Visit _x__ Initial Visit ___ Follow-up Visit ___ On-call Visit ___ General Patient Visit ___ Spiritual Assessment ___ Family Conference ___ Bereavement ___ Rapid Response ___ Code Blue ___ Other (describe below) Pastoral Care Referral From _x__ Patient ___ Family ___ Nurse ___ Physician ___ Delivery Lead ___ Extension Service Supervisor ___ Other (describe below) Sacrament/Intervention _x__ Active listening ___ Anointing ___ Jehovah'S Witness ___ Bereavement ___ Communion ___ Aminah exploration ___ ___ Life review _x__ Prayer ___ Reconciliation ___ Sacrament of Sick _x__ Supportive presence ___ Wedding ___ Other (describe below) Pastoral Comments repeat patient;
--- NOTE | 2019-02-07 18:36 | PCM.PROGNOTE ---
Patient Problems: Active and Suspected Problems (Last Reviewed 02/07/19 @ 00:24 by Oziel Angel MD) Sepsis (Acute) Community acquired pneumonia (Acute) Subjective: Patient was seen and examined today, she complains of feeling short of breath, she was on BiPAP for a time this morning, I did have pulmonary medicine see the patient, I stopped the patient's Zyvox-I do not think she needs coverage for MRSA pneumonia. Patient's white blood cell count today was 14.7, potassium was 3.1 this morning. - Physical Exam Vitals/I&O's: Vital Signs Temp Pulse Resp BP Pulse Ox 97.8 F 79 20 H 120/78 97 02/07/19 14:50 02/07/19 17:30 02/07/19 17:30 02/07/19 14:50 02/07/19 16:44 Oxygen Flow Rate (L/min) 3 Oxygen Delivery Method Nasal Cannula Weight: 96.5 kg Body Mass Index (BMI) 41.5 Finger Stick Blood Glucose 187 Intake and Output for Last 24 Hours 02/05/19 02/06/19 02/07/19 23:59 23:59 23:59 Intake Total 1500 / 1500 Balance 1500 / 1500 General: Alert, Oriented x3, Cooperative, Well developed, Well nourished HEENT: Atraumatic, PERRLA, EOMI, Normocephalic Oral: Moist Mucosa Neck: Supple, Trachea Midline, Thyroid Normal Size and Texture Lungs: Diminished, Wheezes - Scattered expiratory wheezes bilaterally Cardiovascular: Regular rate, Regular Rhythm, Normal S1, Normal S2, No murmurs, PMI Normal, No rub noted Abdomen: Bowel Sounds Present, Soft, Non Tender, Non-Distended Extremities: No clubbing, No cyanosis, Capillary Refill Less than 3 Seconds Skin: No rashes, No breakdown Neurological: Cranial nerves II-XII grossly intact, Neuro grossly intact, Sensory exam intact to light touch and pain Psych/Mental Status: Normal Affect, Appropriate, Alert and oriented to time, place, person, mood and affect Microbiology Past 72 Hours 02/06/19 21:10 Urine Catheter - Catheter Urine Culture - Preliminary Gram negative james 02/07/19 03:40 Mucosa - Nasopharyngeal Influenza Types A,B Direct FA ([place]) - Final 02/06/19 21:12 Urine Catheter - Catheter Legionella Antigen - Final 02/06/19 21:12 Urine Catheter - Catheter Streptococcus pneumoniae Antigen (M - Final Laboratory Results 02/06/19 21:00: WBC 19.1 H, RBC 4.16 L, Hgb 11.6 L, Hct 37.8, MCV 90.9, MCH 27.9, MCHC 30.7 L, RDW Std Deviation 51.6 H, RDW Coeff of Carissa 15.7 H, Plt Count 242, MPV 10.3, Immature Gran % (Auto) 0.600, Neut % (Auto) 85.8 H, Lymph % (Auto) 8.3 L, [place] % (Auto) 4.6, Eos % (Auto) 0.4, Baso % (Auto) 0.3, Absolute Neuts (auto) 16.4 H, Absolute Lymphs (auto) 1.58, Nucleated RBC % 0 02/06/19 21:00: PT 16.1 H, INR 1.3, APTT 32.6 02/06/19 21:00: Sodium 142, Potassium 3.2 L, Chloride 105, Carbon Dioxide 28.0, Anion Gap 9, BUN 11, Creatinine 1.08 H, Estim Creat Clear Calc 32.33, Est GFR (MDRD) Af Amer 64, Est GFR (MDRD) Non-Af 53 L, BUN/Creatinine Ratio 10.2, Glucose 154 H, Calcium 8.7, Total Bilirubin 0.70, AST 20, ALT 17, Alkaline Phosphatase 82, Total Protein 6.1 L, Albumin 2.8 L, Globulin 3.3, Albumin/Globulin Ratio 0.8 L 02/06/19 21:03: Lactic Acid 1.2 02/06/19 21:10: Urine Color Yellow, Urine Clarity Sl. Cloudy, Urine pH 5.0, Ur Specific [place] 1.020, Urine Protein 100 H, Urine Glucose (UA) Normal, Urine Ketones Negative, Urine Occult Blood 25 H, Urine Nitrite Negative, Urine Bilirubin Negative, Urine Urobilinogen Normal, Ur Leukocyte Esterase Negative, Urine RBC 0 SEEN, Urine WBC 5-10 SEEN, Ur Squamous Epith Cells 0-5 SEEN, Amorphous Sediment 1+, Urine Bacteria 1+, Urine Mucus 0 SEEN 02/07/19 03:10: MRSA (PCR) POSITIVE H 02/07/19 04:37: Specimen Type ART, Sample Site R Radial, pH 7.54 H, Bicarbonate Actual 32.2 H, POC Total CO2 33, Base Excess 10 H, O2 Saturation 95, ABG pCO2 38.1, ABG pO2 67 L, Rakesh Test POS, O2 Delivery Device Nasal Can, Liter Flow 4.0, Blood Gas Notified Whom ABRIL HATCH, Blood Gas Notified Time 430 02/07/19 05:14: WBC 14.7 H, RBC 3.85 L, Hgb 10.4 L, Hct 34.4 L, MCV 89.4, MCH 27.0, MCHC 30.2 L, RDW Std Deviation 51.1 H, RDW Coeff of Carissa 15.9 H, Plt Count 204, MPV 10.3, Immature Gran % (Auto) 0.800, Neut % (Auto) 93.0 H, Lymph % (Auto) 3.3 L, [place] % (Auto) 2.7, Eos % (Auto) 0.1, Baso % (Auto) 0.1, Absolute Neuts (auto) 13.6 H, Absolute Lymphs (auto) 0.48 L, Nucleated RBC % 0 02/07/19 05:14: Sodium 140, Potassium 3.1 L, Chloride 104, Carbon Dioxide 29.0, Anion Gap 7, BUN 10, Creatinine 0.92, Estim Creat Clear Calc 37.95, Est GFR (MDRD) Af Amer 76, Est GFR (MDRD) Non-Af 63, BUN/Creatinine Ratio 10.8, Glucose 119 H, Calcium 8.1 L 02/07/19 05:14: B-Natriuretic Peptide 908.6 H Current Medications Acetaminophen (Tylenol) 650 mg PO Q6H PRN PRN PRN Reason: Pain Score 1-10/Temp > 100.7 F Last Admin: 02/07/19 04:03 Dose: 650 mg Documented by: Albuterol Sulfate (Ventolin Aerosols) 2.5 mg INHALATION Q2H PRN PRN PRN Reason: Shortness of Breath/Wheezing Albuterol/Ipratropium (Duoneb) 3 ml INHALATION Q4HWA.RT [facility] Last Admin: 02/07/19 17:28 Dose: 3 ml Documented by: Amiodarone HCl (Cordarone) 200 mg PO DAILY [facility] Last Admin: 02/07/19 09:51 Dose: 200 mg Documented by: Amlodipine Besylate (Norvasc) 2.5 mg PO DAILY [facility] Last Admin: 02/07/19 09:43 Dose: 2.5 mg Documented by: Apixaban (Eliquis) 2.5 mg PO BID [facility] Last Admin: 02/07/19 09:51 Dose: 2.5 mg Documented by: Donepezil HCl (Aricept) 5 mg PO QHS [facility] Duloxetine HCl (Cymbalta) 20 mg PO DAILY [facility] Last Admin: 02/07/19 09:51 Dose: 20 mg Documented by: Ergocalciferol (Vitamin D) 50,000 unit PO MO [facility] Ferrous Sulfate (Ferrous Sulfate) 325 mg PO DAILYCM [facility] Last Admin: 02/07/19 09:43 Dose: 325 mg Documented by: Gabapentin (Neurontin) 600 mg PO BID [facility] Last Admin: 02/07/19 09:43 Dose: 600 mg Documented by: Glucagon () 1 mg IM .X1 PRN PRN Reason: Hypoglycemia Guaifenesin (Mucinex) 1,200 mg PO BID [facility] Last Admin: 02/07/19 09:43 Dose: 1,200 mg Documented by: Hydralazine HCl (Apresoline) 50 mg PO TID [facility] Last Admin: 02/07/19 15:07 Dose: 50 mg Documented by: Meropenem 1 gm/ Sodium (Chloride) 120 mls @ 33 mls/hr IV Q12 [facility] Last Infusion: 02/07/19 13:30 Dose: Infused Documented by: Dextrose (Dextrose 10%-Water) 250 mls @ 999 mls/hr IV .Q16M PRN; Protocol PRN Reason: HYPOGLYCEMIA Magnesium Oxide (Mag-Ox 400) 400 mg PO BID [facility] Last Admin: 02/07/19 09:51 Dose: 400 mg Documented by: Melatonin (Melatonin) 3 mg PO QHS PRN PRN PRN Reason: INSOMNIA Metoprolol Tartrate (Lopressor (Beta Tommy)) 50 mg PO BID [facility] Last Admin: 02/07/19 09:51 Dose: 50 mg Documented by: Nutritional Formula (Lactose Free) (Glucerna Shake) 120 ml PO TIDCM [facility] Last Admin: 02/07/19 17:26 Dose: Not Given Documented by: Ondansetron HCl (Zofran) 4 mg IV Q8H PRN PRN PRN Reason: NAUSEA/VOMITING Pantoprazole Sodium (Protonix) 40 mg PO DAILY [facility] Last Admin: 02/07/19 09:43 Dose: 40 mg Documented by: Potassium Chloride (K-Dur) 20 meq PO BID [facility] Last Admin: 02/07/19 09:43 Dose: 20 meq Documented by: Prednisone () 40 mg PO DAILY@0800 [facility] Last Admin: 02/07/19 09:43 Dose: 40 mg Documented by: Sodium Hypochlorite (Dakins Solution 0.25% (1/2 Strength)) 1 applic TOPICAL BID [facility]; Protocol Medical Necessity - Tobacco Use Smoking Status: Former smoker Assessment/Plan All Active Problems (Last Reviewed 02/07/19 @ 00:24 by Oziel Angel MD) Sepsis (Acute) Community acquired pneumonia (Acute) #1 sepsis secondary to community-acquired pneumonia-continue meropenem #2 acute exacerbation of COPD-continue present treatment, pulmonary medicine is seeing patient #3 probable diastolic congestive heart failure-patient was placed on Lasix orally, I will monitor her response #4 chronic hypoxic respiratory failure #5 paroxysmal atrial fibrillation #6 type 2 diabetes #7 dementia Code Visit Inpatient E&M: 21402 Subs Hosp L2
[2019-02-07] MEDS: DAKIN'S SOL HALF STRENGTH (=0.25%) 1 APPLIC TOPICAL (20:20)
[2019-02-07] MEDS: Furosemide 40 MG Tablet PO (20:22)
[2019-02-07] MEDS: Donepezil HCl 5 MG Tablet PO (20:23)
[2019-02-08] VITALS (18 sets, daily range): BP systolic 138–164; BP diastolic 66–100; PULSE 61–88; RESP 12–24; TEMP 36.6–37.4; O2SAT 93–100
--- NOTE | 2019-02-08 04:50 | RAD_ITS ---
HISTORY: PNEUMONIA ADDITIONAL HISTORY: None provided. TECHNIQUE: Frontal chest radiograph. Number of images including paperwork: 1 COMPARISON: 02/06/2019 FINDINGS: LUNGS AND PLEURA: Decrease in bilateral lower lobe infiltrates. CARDIAC SILHOUETTE: Stably enlarged. MEDIASTINUM AND FATMATA: Stable. UPPER ABDOMEN: Unremarkable. SKELETON AND SOFT TISSUES: No acute findings. OTHER DEVICES AND HARDWARE: Sternal wires and surgical clips. RAD/Chest 1 View (Portable) IMPRESSION: Decrease in bilateral infiltrates. at 0800 Reported and signed by: Sheri Hernandez MD Electronically Signed: Sheri Hernandez MD at 8:00 EST Tel , Service support ,
[2019-02-08] MEDS: hydrALAZINE 50 MG Tablet PO ×3 (05:33→23:09)
[2019-02-08] MEDS: Ipratropium/Albuterol Sulfate 3 ML AMPUL.NEB INHALATION ×4 (07:00→19:27)
--- NOTE | 2019-02-08 07:35 | PN_ITS ---
Patient Problems: Active and Suspected Problems (Last Reviewed 02/07/19 @ 00:24 by Oziel Angel MD) Sepsis (Acute) Community acquired pneumonia (Acute) Subjective: The patient was seen and examined at the bedside this morning. Events from the last 24 hours have been reviewed. The patient is currently afebrile, hemodynamically stable and maintaining appropriate oxygen saturations on 2 L/min via nasal cannula. The patient does continue to report the presence of shortness of breath and cough. Her main complaints this morning was for that of air leak from her BiPAP mask last night along with frequent urination due to diuretic administration. Please note, although hospitalists are currently documenting COPD, pulmonary function studies from December 2018 clearly demonstrated no evidence of obstructive lung disease. Objective: The patient's most recent lab work, culture data and imaging studies have all been personally reviewed. Strep and urine Legionella antigens were negative. Blood cultures are pending. Rapid influenza screen was negative. - Physical Exam Vitals/I&O's: Vital Signs Temp Pulse Resp BP Pulse Ox 97.9 F 80 24 H 152/71 H 94 02/08/19 05:28 02/08/19 06:00 02/08/19 06:00 02/08/19 05:28 02/08/19 06:00 Oxygen Flow Rate (L/min) 2 Oxygen Delivery Method Bi-pap Weight: 212 lb 11.937 oz Body Mass Index (BMI) 41.5 Finger Stick Blood Glucose 187 Intake and Output for Last 24 Hours 02/06/19 02/07/19 02/08/19 23:59 23:59 23:59 Intake Total 1500 / 1500 120 / 120 Output Total 200 / 200 Balance 1500 / 1500 -80 / -80 General: Alert, Cooperative, No apparent distress HEENT: Atraumatic, PERRLA, Normocephalic Oral: No Gingival or Mucosal Lesions/ Ulcerations Neck: Supple, No Nodes, Trachea Midline Lungs: Diminished, Wheezes Cardiovascular: Regular rate, Regular Rhythm, Normal S1, Normal S2, No murmurs Abdomen: Bowel Sounds Present, Soft, Non Tender, Obese Extremities: No clubbing, No cyanosis Skin: No breakdown Musculoskeletal: No Tenderness to Palpation of Joints or Extremities, No Muscle Wasting Lymphatic: No Cervical, Supraclavicular, or Inguinal Adenopathy Neurological: Cranial nerves II-XII grossly intact, Neuro grossly intact Psych/Mental Status: Normal Affect, Appropriate Labs (Last 48 Hours) 02/06/19 02/06/19 02/06/19 21:00 21:00 21:00 WBC 19.1 H RBC 4.16 L Hgb 11.6 L Hct 37.8 MCV 90.9 MCH 27.9 MCHC 30.7 L RDW Std Deviation 51.6 H RDW Coeff of Carissa 15.7 H Plt Count 242 MPV 10.3 Immature Gran % (Auto) 0.600 Neut % (Auto) 85.8 H Lymph % (Auto) 8.3 L [place] % (Auto) 4.6 Eos % (Auto) 0.4 Baso % (Auto) 0.3 Absolute Neuts (auto) 16.4 H Absolute Lymphs (auto) 1.58 Nucleated RBC % 0 PT 16.1 H INR 1.3 APTT 32.6 Specimen Type Sample Site pH Bicarbonate Actual POC Total CO2 Base Excess O2 Saturation ABG pCO2 ABG pO2 Rakesh Test O2 Delivery Device Liter Flow Blood Gas Notified Whom Blood Gas Notified Time Sodium 142 Potassium 3.2 L Chloride 105 Carbon Dioxide 28.0 Anion Gap 9 BUN 11 Creatinine 1.08 H Estim Creat Clear Calc 32.33 Est GFR (MDRD) Af Amer 64 Est GFR (MDRD) Non-Af 53 L BUN/Creatinine Ratio 10.2 Glucose 154 H Lactic Acid Calcium 8.7 Total Bilirubin 0.70 AST 20 ALT 17 Alkaline Phosphatase 82 B-Natriuretic Peptide Total Protein 6.1 L Albumin 2.8 L Globulin 3.3 Albumin/Globulin Ratio 0.8 L Urine Color Urine Clarity Urine pH Ur Specific [place] Urine Protein Urine Glucose (UA) Urine Ketones Urine Occult Blood Urine Nitrite Urine Bilirubin Urine Urobilinogen Ur Leukocyte Esterase Urine RBC Urine WBC Ur Squamous Epith Cells Amorphous Sediment Urine Bacteria Urine Mucus MRSA (PCR) 02/06/19 02/06/19 02/07/19 21:03 21:10 03:10 WBC RBC Hgb Hct MCV MCH MCHC RDW Std Deviation RDW Coeff of Carissa Plt Count MPV Immature Gran % (Auto) Neut % (Auto) Lymph % (Auto) [place] % (Auto) Eos % (Auto) Baso % (Auto) Absolute Neuts (auto) Absolute Lymphs (auto) Nucleated RBC % PT INR APTT Specimen Type Sample Site pH Bicarbonate Actual POC Total CO2 Base Excess O2 Saturation ABG pCO2 ABG pO2 Rakesh Test O2 Delivery Device Liter Flow Blood Gas Notified Whom Blood Gas Notified Time Sodium Potassium Chloride Carbon Dioxide Anion Gap BUN Creatinine Estim Creat Clear Calc Est GFR (MDRD) Af Amer Est GFR (MDRD) Non-Af BUN/Creatinine Ratio Glucose Lactic Acid 1.2 Calcium Total Bilirubin AST ALT Alkaline Phosphatase B-Natriuretic Peptide Total Protein Albumin Globulin Albumin/Globulin Ratio Urine Color Yellow Urine Clarity Sl. Cloudy Urine pH 5.0 Ur Specific [place] 1.020 Urine Protein 100 H Urine Glucose (UA) Normal Urine Ketones Negative Urine Occult Blood 25 H Urine Nitrite Negative Urine Bilirubin Negative Urine Urobilinogen Normal Ur Leukocyte Esterase Negative Urine RBC 0 SEEN Urine WBC 5-10 SEEN Ur Squamous Epith Cells 0-5 SEEN Amorphous Sediment 1+ Urine Bacteria 1+ Urine Mucus 0 SEEN MRSA (PCR) POSITIVE H 02/07/19 02/07/19 02/07/19 04:37 05:14 05:14 WBC 14.7 H RBC 3.85 L Hgb 10.4 L Hct 34.4 L MCV 89.4 MCH 27.0 MCHC 30.2 L RDW Std Deviation 51.1 H RDW Coeff of Carissa 15.9 H Plt Count 204 MPV 10.3 Immature Gran % (Auto) 0.800 Neut % (Auto) 93.0 H Lymph % (Auto) 3.3 L [place] % (Auto) 2.7 Eos % (Auto) 0.1 Baso % (Auto) 0.1 Absolute Neuts (auto) 13.6 H Absolute Lymphs (auto) 0.48 L Nucleated RBC % 0 PT INR APTT Specimen Type ART Sample Site R Radial pH 7.54 H Bicarbonate Actual 32.2 H POC Total CO2 33 Base Excess 10 H O2 Saturation 95 ABG pCO2 38.1 ABG pO2 67 L Rakesh Test POS O2 Delivery Device Nasal Can Liter Flow 4.0 Blood Gas Notified Whom [facility] Blood Gas Notified Time 430 Sodium 140 Potassium 3.1 L Chloride 104 Carbon Dioxide 29.0 Anion Gap 7 BUN 10 Creatinine 0.92 Estim Creat Clear Calc 37.95 Est GFR (MDRD) Af Amer 76 Est GFR (MDRD) Non-Af 63 BUN/Creatinine Ratio 10.8 Glucose 119 H Lactic Acid Calcium 8.1 L Total Bilirubin AST ALT Alkaline Phosphatase B-Natriuretic Peptide Total Protein Albumin Globulin Albumin/Globulin Ratio Urine Color Urine Clarity Urine pH Ur Specific [place] Urine Protein Urine Glucose (UA) Urine Ketones Urine Occult Blood Urine Nitrite Urine Bilirubin Urine Urobilinogen Ur Leukocyte Esterase Urine RBC Urine WBC Ur Squamous Epith Cells Amorphous Sediment Urine Bacteria Urine Mucus MRSA (PCR) 02/07/19 05:14 WBC RBC Hgb Hct MCV MCH MCHC RDW Std Deviation RDW Coeff of Carissa Plt Count MPV Immature Gran % (Auto) Neut % (Auto) Lymph % (Auto) [place] % (Auto) Eos % (Auto) Baso % (Auto) Absolute Neuts (auto) Absolute Lymphs (auto) Nucleated RBC % PT INR APTT Specimen Type Sample Site pH Bicarbonate Actual POC Total CO2 Base Excess O2 Saturation ABG pCO2 ABG pO2 Rakesh Test O2 Delivery Device Liter Flow Blood Gas Notified Whom Blood Gas Notified Time Sodium Potassium Chloride Carbon Dioxide Anion Gap BUN Creatinine Estim Creat Clear Calc Est GFR (MDRD) Af Amer Est GFR (MDRD) Non-Af BUN/Creatinine Ratio Glucose Lactic Acid Calcium Total Bilirubin AST ALT Alkaline Phosphatase B-Natriuretic Peptide 908.6 H Total Protein Albumin Globulin Albumin/Globulin Ratio Urine Color Urine Clarity Urine pH Ur Specific [place] Urine Protein Urine Glucose (UA) Urine Ketones Urine Occult Blood Urine Nitrite Urine Bilirubin Urine Urobilinogen Ur Leukocyte Esterase Urine RBC Urine WBC Ur Squamous Epith Cells Amorphous Sediment Urine Bacteria Urine Mucus MRSA (PCR) Microbiology 02/06/19 21:10 Urine Catheter - Catheter Urine Culture - Preliminary Gram negative james 02/07/19 03:40 Mucosa - Nasopharyngeal Influenza Types A,B Direct FA ([place]) - Final 02/06/19 21:12 Urine Catheter - Catheter Legionella Antigen - Final 02/06/19 21:12 Urine Catheter - Catheter Streptococcus pneumoniae Antigen (M - Final Clinical Impression(s) from Imaging Studies Chest X-Ray 02/06/19 21:45 IMPRESSION: New bibasilar pulmonary infiltrates, potential pneumonic process. Stable cardiomegaly status post prior midline sternotomy. Electronically Signed: Cecilia Marsh MD at 22:08 EST , Service support , Current Medications Acetaminophen (Tylenol) 650 mg PO Q6H PRN PRN PRN Reason: Pain Score 1-10/Temp > 100.7 F Last Admin: 02/07/19 04:03 Dose: 650 mg Documented by: Albuterol Sulfate (Ventolin Aerosols) 2.5 mg INHALATION Q2H PRN PRN PRN Reason: Shortness of Breath/Wheezing Albuterol/Ipratropium (Duoneb) 3 ml INHALATION Q4HWA.RT [facility] Last Admin: 02/08/19 07:00 Dose: 3 ml Documented by: Amiodarone HCl (Cordarone) 200 mg PO DAILY [facility] Last Admin: 02/07/19 09:51 Dose: 200 mg Documented by: Amlodipine Besylate (Norvasc) 2.5 mg PO DAILY [facility] Last Admin: 02/07/19 09:43 Dose: 2.5 mg Documented by: Apixaban (Eliquis) 2.5 mg PO BID [facility] Last Admin: 02/07/19 20:22 Dose: 2.5 mg Documented by: Donepezil HCl (Aricept) 5 mg PO QHS [facility] Last Admin: 02/07/19 20:23 Dose: 5 mg Documented by: Duloxetine HCl (Cymbalta) 20 mg PO DAILY [facility] Last Admin: 02/07/19 09:51 Dose: 20 mg Documented by: Ergocalciferol (Vitamin D) 50,000 unit PO MO [facility] Ferrous Sulfate (Ferrous Sulfate) 325 mg PO DAILYCM [facility] Last Admin: 02/07/19 09:43 Dose: 325 mg Documented by: Furosemide (Lasix) 40 mg PO DAILY [facility] Gabapentin (Neurontin) 600 mg PO BID [facility] Last Admin: 02/07/19 20:22 Dose: 600 mg Documented by: Glucagon () 1 mg IM .X1 PRN PRN Reason: Hypoglycemia Guaifenesin (Mucinex) 1,200 mg PO BID [facility] Last Admin: 02/07/19 20:21 Dose: 1,200 mg Documented by: Hydralazine HCl (Apresoline) 50 mg PO TID [facility] Last Admin: 02/08/19 05:33 Dose: 50 mg Documented by: Meropenem 1 gm/ Sodium (Chloride) 120 mls @ 33 mls/hr IV Q12 [facility] Last Infusion: 02/08/19 02:28 Dose: Infused Documented by: Dextrose (Dextrose 10%-Water) 250 mls @ 999 mls/hr IV .Q16M PRN; Protocol PRN Reason: HYPOGLYCEMIA Magnesium Oxide (Mag-Ox 400) 400 mg PO BID [facility] Last Admin: 02/07/19 20:21 Dose: 400 mg Documented by: Melatonin (Melatonin) 3 mg PO QHS PRN PRN PRN Reason: INSOMNIA Metoprolol Tartrate (Lopressor (Beta Tommy)) 50 mg PO BID [facility] Last Admin: 02/07/19 20:21 Dose: 50 mg Documented by: Nutritional Formula (Lactose Free) (Glucerna Shake) 120 ml PO TIDCM [facility] Last Admin: 02/07/19 17:26 Dose: Not Given Documented by: Ondansetron HCl (Zofran) 4 mg IV Q8H PRN PRN PRN Reason: NAUSEA/VOMITING Pantoprazole Sodium (Protonix) 40 mg PO DAILY [facility] Last Admin: 02/07/19 09:43 Dose: 40 mg Documented by: Potassium Chloride (K-Dur) 20 meq PO BID [facility] Last Admin: 02/07/19 20:22 Dose: 20 meq Documented by: Prednisone () 40 mg PO DAILY@0800 [facility] Last Admin: 02/07/19 09:43 Dose: 40 mg Documented by: Sodium Hypochlorite (Dakins Solution 0.25% (1/2 Strength)) 1 applic TOPICAL BID [facility]; Protocol Last Admin: 02/07/19 20:20 Dose: 1 applicatio Documented by: Medical Necessity - Tobacco Use Smoking Status: Former smoker Assessment/Plan All Active Problems (Last Reviewed 02/07/19 @ 00:24 by Oziel Angel MD) Sepsis (Acute) Community acquired pneumonia (Acute) RECOMMENDATIONS: 1. Continue empiric antimicrobials. 2. Stop prednisone as the patient does not have a history of COPD. 3. Wean supplemental oxygen to maintain saturations at or above 90%. 4. Encourage incentive spirometer use and mobilize patient as tolerated. 5. Continue Lasix. 6. Continue BiPAP therapy with naps and nightly. IMPRESSIONS: 1. Acute hypoxemic respiratory insufficiency secondary to possible community- acquired pneumonia versus heart failure exacerbation The patient did present to the hospital with an elevated white blood cell count and fever. Accordingly, she has been maintained on broad-spectrum antimicrobials, pending infectious work-up. She does have a known history of heart failure with preserved ejection fraction and does have an elevated BNP to greater than 900. Please note that this is not a COPD exacerbation, as the patient does not have evidence of obstructive lung disease on PFTs, just completed in December 2018. Accordingly, prednisone should be discontinued. Continue diuretic therapy. Wean supplemental oxygen to maintain saturations at or above 90%. Encourage incentive spirometer use and mobilize patient as tolerated. 2. Obstructive sleep apnea The patient has a known history of LAURITA and is currently noncompliant with the use of nocturnal Pap therapy. However, while admitted to the hospital, the patient will be maintained on nocturnal BiPAP therapy with a pressure support of 12/6 centimeters of water. 3. Chronic lower extremity wounds/diabetes mellitus/obesity/hypertension/paroxysmal atrial fibrillation/GERD Complicates care, management, recovery and prognosis. Continue home medications per outpatient regimen. This note was generated with Brac[employer] dictation software. It may contain incorrect words, spelling, and punctuation that were not noted in checking the note before signing. Code Visit Inpatient E&M: 79485 Subs Hosp L2
[2019-02-08] MEDS: predniSONE 20 MG Tablet 40 MG PO (09:33)
[2019-02-08] MEDS: Furosemide 40 MG Tablet PO (09:34)
[2019-02-08] MEDS: Glucerna Shake 120 ML LIQUID PO ×3 (09:34→16:19)
[2019-02-08] MEDS: amLODIPine 2.5 MG Tablet PO (09:34)
[2019-02-08] MEDS: Metoprolol Tartrate 50 MG Tablet PO ×2 (09:34→23:09)
[2019-02-08] MEDS: DULoxetine Hcl 20 MG Capsule PO (09:34)
[2019-02-08] MEDS: Ferrous Sulfate 325 MG Tablet PO (09:34)
[2019-02-08] MEDS: Magnesium Oxide 400 MG Tablet PO ×2 (09:35→23:05)
[2019-02-08] MEDS: guaiFENesin 1,200 MG Tablet 1200 MG PO ×2 (09:35→23:05)
[2019-02-08] MEDS: APIXABAN 2.5 MG TABLET PO ×2 (09:35→23:05)
[2019-02-08] MEDS: Gabapentin 600 MG Tablet PO ×2 (09:35→23:05)
[2019-02-08] MEDS: Amiodarone 200 MG Tablet PO (09:35)
[2019-02-08] MEDS: Pantoprazole Sodium 40 MG Tablet PO (09:36)
[2019-02-08] MEDS: DAKIN'S SOL HALF STRENGTH (=0.25%) 1 APPLIC TOPICAL ×2 (16:19→23:05)
--- NOTE | 2019-02-08 17:18 | PCM.PROGNOTE ---
Patient Problems: Active and Suspected Problems (Last Reviewed 02/07/19 @ 00:24 by Oziel Angel MD) Sepsis (Acute) Community acquired pneumonia (Acute) Subjective: Patient was seen and examined today, her oxygen has been weaned down to 2 L via nasal cannula. Pulmonary medicine has charted that the patient does not have chronic obstructive pulmonary disease, they recommend discontinuing corticosteroids at this time. Patient's chest x-ray today showed decrease in bilateral infiltrates. - Physical Exam Vitals/I&O's: Vital Signs Temp Pulse Resp BP Pulse Ox 98.1 F 80 20 H 164/78 H 95 02/08/19 16:48 02/08/19 16:48 02/08/19 16:48 02/08/19 16:48 02/08/19 16:48 Oxygen Flow Rate (L/min) 2 Oxygen Delivery Method Nasal Cannula Weight: 96.5 kg Body Mass Index (BMI) 41.5 Finger Stick Blood Glucose 187 Intake and Output for Last 24 Hours 02/06/19 02/07/19 02/08/19 23:59 23:59 23:59 Intake Total 1500 / 1500 560 / 560 Output Total 500 / 500 Balance 1500 / 1500 60 / 60 General: Alert, Oriented x3, Cooperative, No apparent distress, Well developed HEENT: Atraumatic, PERRLA, EOMI, Normocephalic Oral: Moist Mucosa Neck: Supple, Trachea Midline, Thyroid Normal Size and Texture Lungs: Clear to auscultation, Normal air movement, No rhonchi, No rales, Diminished, Wheezes - Scattered expiratory wheezes are noted bilaterally Cardiovascular: Regular rate, Regular Rhythm, Normal S1, Normal S2, No murmurs Abdomen: Bowel Sounds Present, Soft, Non Tender, Non-Distended Extremities: No edema, Capillary Refill Less than 3 Seconds Skin: No rashes, No breakdown Musculoskeletal: No Tenderness to Palpation of Joints or Extremities Neurological: Cranial nerves II-XII grossly intact, Neuro grossly intact, Sensory exam intact to light touch and pain Psych/Mental Status: Normal Affect, Appropriate, Alert and oriented to time, place, person, mood and affect Microbiology Past 72 Hours 02/06/19 21:10 Urine Catheter - Catheter Urine Culture - Final Klebsiella pneumoniae sp pneum 02/07/19 03:40 Mucosa - Nasopharyngeal Influenza Types A,B Direct FA ([place]) - Final 02/06/19 21:12 Urine Catheter - Catheter Legionella Antigen - Final 02/06/19 21:12 Urine Catheter - Catheter Streptococcus pneumoniae Antigen (M - Final Current Medications Acetaminophen (Tylenol) 650 mg PO Q6H PRN PRN PRN Reason: Pain Score 1-10/Temp > 100.7 F Last Admin: 02/07/19 04:03 Dose: 650 mg Documented by: Albuterol Sulfate (Ventolin Aerosols) 2.5 mg INHALATION Q2H PRN PRN PRN Reason: Shortness of Breath/Wheezing Albuterol/Ipratropium (Duoneb) 3 ml INHALATION Q4HWA.RT [facility] Last Admin: 02/08/19 15:15 Dose: 3 ml Documented by: Amiodarone HCl (Cordarone) 200 mg PO DAILY [facility] Last Admin: 02/08/19 09:35 Dose: 200 mg Documented by: Amlodipine Besylate (Norvasc) 2.5 mg PO DAILY [facility] Last Admin: 02/08/19 09:34 Dose: 2.5 mg Documented by: Apixaban (Eliquis) 2.5 mg PO BID [facility] Last Admin: 02/08/19 09:35 Dose: 2.5 mg Documented by: Donepezil HCl (Aricept) 5 mg PO QHS [facility] Last Admin: 02/07/19 20:23 Dose: 5 mg Documented by: Duloxetine HCl (Cymbalta) 20 mg PO DAILY [facility] Last Admin: 02/08/19 09:34 Dose: 20 mg Documented by: Ergocalciferol (Vitamin D) 50,000 unit PO MO [facility] Last Admin: 02/08/19 09:35 Dose: 50,000 unit Documented by: [facility]ous [facility]) [facility] Last Admin: 02/08/19 09:34 Dose: 325 mg Documented by: Furosemide (Lasix) 40 mg PO DAILY [facility] Last Admin: 02/08/19 09:34 Dose: 40 mg Documented by: Gabapentin (Neurontin) 600 mg PO BID [facility] Last Admin: 02/08/19 09:35 Dose: 600 mg Documented by: Glucagon () 1 mg IM .X1 PRN PRN Reason: Hypoglycemia Guaifenesin (Mucinex) 1,200 mg PO BID [facility] Last Admin: 02/08/19 09:35 Dose: 1,200 mg Documented by: Hydralazine HCl (Apresoline) 50 mg PO TID [facility] Last Admin: 02/08/19 13:14 Dose: 50 mg Documented by: Meropenem 1 gm/ Sodium (Chloride) 120 mls @ 33 mls/hr IV Q12 [facility] Last Infusion: 02/08/19 13:15 Dose: Infused Documented by: Dextrose (Dextrose 10%-Water) 250 mls @ 999 mls/hr IV .Q16M PRN; Protocol PRN Reason: HYPOGLYCEMIA Magnesium Oxide (Mag-Ox 400) 400 mg PO BID [facility] Last Admin: 02/08/19 09:35 Dose: 400 mg Documented by: Melatonin (Melatonin) 3 mg PO QHS PRN PRN PRN Reason: INSOMNIA Metoprolol Tartrate (Lopressor (Beta Tommy)) 50 mg PO BID [facility] Last Admin: 02/08/19 09:34 Dose: 50 mg Documented by: Nutritional Formula (Lactose Free) (Glucerna Shake) 120 ml PO TIDCM [facility] Last Admin: 02/08/19 16:19 Dose: 120 ml Documented by: Ondansetron HCl (Zofran) 4 mg IV Q8H PRN PRN PRN Reason: NAUSEA/VOMITING Pantoprazole Sodium (Protonix) 40 mg PO DAILY [facility] Last Admin: 02/08/19 09:36 Dose: 40 mg Documented by: Potassium Chloride (K-Dur) 20 meq PO BID [facility] Last Admin: 02/08/19 09:34 Dose: 20 meq Documented by: Sodium Hypochlorite (Dakins Solution 0.25% (1/2 Strength)) 1 applic TOPICAL BID [facility]; Protocol Last Admin: 02/08/19 16:19 Dose: 1 applicatio Documented by: Medical Necessity - Tobacco Use Smoking Status: Former smoker Assessment/Plan All Active Problems (Last Reviewed 02/07/19 @ 00:24 by Oziel Angel MD) Sepsis (Acute) Community acquired pneumonia (Acute) #1 sepsis secondary to community-acquired pneumonia-continue meropenem #2 Community-acquired pneumonia-organism unknown #3 probable diastolic congestive heart failure-continue Lasix #4 chronic hypoxic respiratory failure #5 paroxysmal atrial fibrillation #6 type 2 diabetes #7 dementia #8 obstructive sleep apnea #9 restrictive lung disease Code Visit Inpatient E&M: 86474 Subs Hosp L2
[2019-02-08] MEDS: Albuterol 2.5 MG/3 ML VIAL.NEB. INHALATION (17:29)
[2019-02-08] MEDS: Donepezil HCl 5 MG Tablet PO (23:05)
--- NOTE | 2019-02-08 23:56 | CPS ---
patient refused pap therapy. patient informed of pap benefits but patient still denied pap therapy.
[2019-02-09] VITALS (26 sets, daily range): BP systolic 98–178; BP diastolic 48–116; PULSE 62–92; RESP 12–38; TEMP 36.6–38; O2SAT 89–100
[2019-02-09] MEDS: 0.9% Saline Lock 10 ML Syringe IV ×4 (04:55→21:07)
[2019-02-09] MEDS: Acetaminophen 325 MG Tablet 650 MG PO ×2 (05:03→21:18)
[2019-02-09] MEDS: hydrALAZINE 50 MG Tablet PO ×3 (05:03→21:07)
--- NOTE | 2019-02-09 06:46 | PN_ITS ---
Patient Problems: Active and Suspected Problems (Last Reviewed 02/07/19 @ 00:24 by Oziel Angel MD) Sepsis (Acute) Community acquired pneumonia (Acute) Subjective: The patient was seen and examined at the bedside this morning. Events from the last 24 hours have been reviewed. The patient is currently afebrile, hemodynamically stable and maintaining appropriate oxygen saturations on 2 L/min via nasal cannula. The patient refused BiPAP overnight. This morning, she is sitting in her bedside recliner receiving an aerosol treatment. She reports to me that she continues to feel crummy. She is still short of breath with exertion and reports the presence of chest heaviness. The patient has been unable to produce any sputum. Objective: The patient's most recent lab work, culture data and imaging studies have all been personally reviewed. Strep and urine Legionella antigens were negative. Blood cultures are pending. Rapid influenza screen was negative. Urine culture grew out Klebsiella pneumonia, but only at 11-25,000 CFU. - Physical Exam Vitals/I&O's: Vital Signs Temp Pulse Resp BP Pulse Ox 98.3 F 68 18 154/80 H 94 02/09/19 05:01 02/09/19 05:03 02/09/19 05:10 02/09/19 05:03 02/09/19 05:01 Oxygen Flow Rate (L/min) 2 Oxygen Delivery Method Nasal Cannula Weight: 212 lb 11.937 oz Body Mass Index (BMI) 41.5 Finger Stick Blood Glucose 187 Intake and Output for Last 24 Hours 02/07/19 02/08/19 02/09/19 23:59 23:59 23:59 Intake Total 1500 / 1500 560 / 960 520 / 520 Output Total 500 / 1150 650 / 650 Balance 1500 / 1500 60 / -190 -130 / -130 General: Alert, Cooperative, - - Sitting in bedside recliner. Morbidly obese. HEENT: Atraumatic, PERRLA, Normocephalic Oral: No Gingival or Mucosal Lesions/ Ulcerations Neck: Supple, No Nodes, Trachea Midline Lungs: Diminished, - - Bilateral expiratory wheezes Cardiovascular: Regular rate, Regular Rhythm, Normal S1, Normal S2, No murmurs Abdomen: Bowel Sounds Present, Soft, Non Tender, Obese Extremities: No clubbing, No cyanosis, - - Wrapped lower extremities Skin: No breakdown Musculoskeletal: No Tenderness to Palpation of Joints or Extremities, No Muscle Wasting Lymphatic: No Cervical, Supraclavicular, or Inguinal Adenopathy Neurological: Cranial nerves II-XII grossly intact, Neuro grossly intact Psych/Mental Status: Normal Affect, Appropriate Labs (Last 48 Hours) 02/07/19 05:14 B-Natriuretic Peptide 908.6 H Microbiology 02/06/19 21:10 Urine Catheter - Catheter Urine Culture - Final Klebsiella pneumoniae sp pneum 02/07/19 03:40 Mucosa - Nasopharyngeal Influenza Types A,B Direct FA ([place]) - Final 02/06/19 21:12 Urine Catheter - Catheter Legionella Antigen - Final 02/06/19 21:12 Urine Catheter - Catheter Streptococcus pneumoniae Antigen (M - Final Clinical Impression(s) from Imaging Studies Chest X-Ray 02/06/19 21:45 IMPRESSION: New bibasilar pulmonary infiltrates, potential pneumonic process. Stable cardiomegaly status post prior midline sternotomy. Electronically Signed: Cecilia Marsh MD at 22:08 EST , Service support , Chest X-Ray 02/08/19 04:50 IMPRESSION: Decrease in bilateral infiltrates. at 0800 Reported and signed by: Sheri Hernandez MD Electronically Signed: Sheri Hernandez MD at 8:00 EST Tel , Service support , Current Medications Acetaminophen (Tylenol) 650 mg PO Q6H PRN PRN PRN Reason: Pain Score 1-10/Temp > 100.7 F Last Admin: 02/09/19 05:03 Dose: 650 mg Documented by: Albuterol Sulfate (Ventolin Aerosols) 2.5 mg INHALATION Q2H PRN PRN PRN Reason: Shortness of Breath/Wheezing Last Admin: 02/08/19 17:29 Dose: 2.5 mg Documented by: Albuterol/Ipratropium (Duoneb) 3 ml INHALATION Q4HWA.RT [facility] Last Admin: 02/08/19 19:27 Dose: 3 ml Documented by: Amiodarone HCl (Cordarone) 200 mg PO DAILY [facility] Last Admin: 02/08/19 09:35 Dose: 200 mg Documented by: Amlodipine Besylate (Norvasc) 2.5 mg PO DAILY [facility] Last Admin: 02/08/19 09:34 Dose: 2.5 mg Documented by: Apixaban (Eliquis) 2.5 mg PO BID [facility] Last Admin: 02/08/19 23:05 Dose: 2.5 mg Documented by: Donepezil HCl (Aricept) 5 mg PO QHS [facility] Last Admin: 02/08/19 23:05 Dose: 5 mg Documented by: Duloxetine HCl (Cymbalta) 20 mg PO DAILY [facility] Last Admin: 02/08/19 09:34 Dose: 20 mg Documented by: Ergocalciferol (Vitamin D) 50,000 unit PO MO [facility] Last Admin: 02/08/19 09:35 Dose: 50,000 unit Documented by: Ferrous Sulfate (Ferrous Sulfate) 325 mg PO DAILYCM [facility] Last Admin: 02/08/19 09:34 Dose: 325 mg Documented by: Furosemide (Lasix) 40 mg PO DAILY [facility] Last Admin: 02/08/19 09:34 Dose: 40 mg Documented by: Gabapentin (Neurontin) 600 mg PO BID [facility] Last Admin: 02/08/19 23:05 Dose: 600 mg Documented by: Glucagon () 1 mg IM .X1 PRN PRN Reason: Hypoglycemia Guaifenesin (Mucinex) 1,200 mg PO BID [facility] Last Admin: 02/08/19 23:05 Dose: 1,200 mg Documented by: Hydralazine HCl (Apresoline) 50 mg PO TID [facility] Last Admin: 02/09/19 05:03 Dose: 50 mg Documented by: Meropenem 1 gm/ Sodium (Chloride) 120 mls @ 33 mls/hr IV Q12 [facility] Last Infusion: 02/09/19 02:43 Dose: Infused Documented by: Dextrose (Dextrose 10%-Water) 250 mls @ 999 mls/hr IV .Q16M PRN; Protocol PRN Reason: HYPOGLYCEMIA Sodium Chloride () 250 mls @ 15 mls/hr IV .[id number] PRN PRN Reason: Saline Flush Sodium Chloride () 250 mls @ 15 mls/hr IV .[id number] PRN PRN Reason: Additional IVPB Infusion Magnesium Oxide (Mag-Ox 400) 400 mg PO BID [facility] Last Admin: 02/08/19 23:05 Dose: 400 mg Documented by: Melatonin (Melatonin) 3 mg PO QHS PRN PRN PRN Reason: INSOMNIA Metoprolol Tartrate (Lopressor (Beta Tommy)) 50 mg PO BID [facility] Last Admin: 02/08/19 23:09 Dose: 50 mg Documented by: Nutritional Formula (Lactose Free) (Glucerna Shake) 120 ml PO TIDCM [facility] Last Admin: 02/08/19 16:19 Dose: 120 ml Documented by: Ondansetron HCl (Zofran) 4 mg IV Q8H PRN PRN PRN Reason: NAUSEA/VOMITING Pantoprazole Sodium (Protonix) 40 mg PO DAILY [facility] Last Admin: 02/08/19 09:36 Dose: 40 mg Documented by: Potassium Chloride (K-Dur) 20 meq PO BID [facility] Last Admin: 02/08/19 23:05 Dose: 20 meq Documented by: Sodium Chloride () 10 - 40 ml IV UD PRN PRN Reason: SALINE FLUSH Last Admin: 02/09/19 04:55 Dose: 10 ml Documented by: Sodium Hypochlorite (Dakins Solution 0.25% (1/2 Strength)) 1 applic TOPICAL BID [facility]; Protocol Last Admin: 02/08/19 23:05 Dose: 1 applicatio Documented by: Medical Necessity - Tobacco Use Smoking Status: Former smoker Assessment/Plan All Active Problems (Last Reviewed 02/07/19 @ 00:24 by Oziel Angel MD) Sepsis (Acute) Community acquired pneumonia (Acute) RECOMMENDATIONS: 1. Transition to Levaquin to complete 7-day treatment course of antibiotics. 2. Consider more aggressive attempts at diuresis with IV Lasix. 3. Check troponin level. 4. Wean supplemental oxygen to maintain saturations at or above 90%. 5. Encourage incentive spirometer use and mobilize patient as tolerated. 6. Encourage BiPAP therapy with naps and nightly. 7. Perform walking oximetry study prior to consideration for discharge home. 8. Outpatient pulmonary follow-up within 2 weeks of discharge is warranted. IMPRESSIONS: 1. Acute hypoxemic respiratory insufficiency secondary to possible community- acquired pneumonia versus heart failure exacerbation The patient did present to the hospital with an elevated white blood cell count and fever. Accordingly, she has been maintained on broad-spectrum antimicrobials. She does have a known history of heart failure with preserved ejection fraction and did have an elevated BNP to greater than 900. Please note that this is not a COPD exacerbation, as the patient does not have evidence of obstructive lung disease on PFTs, just completed in December 2018. At this time, the patient's infectious work-up has been unrevealing to date. Therefore, I do feel that meropenem can be de-escalated to Levaquin to complete a 7-day treatment course. In addition, I would plan to continue attempts at diuresis as tolerated, and would plan to check a troponin level. Wean supplemental oxygen to maintain saturations at or above 90%. Encourage incentive spirometer use and mobilize patient as tolerated. Perform walking oximetry study prior to consideration for discharge home. 2. Obstructive sleep apnea The patient has a known history of LAURITA and is currently noncompliant with the use of nocturnal Pap therapy. However, while admitted to the hospital, the patient will be maintained on nocturnal BiPAP therapy with a pressure support of 12/6 centimeters of water. 3. Chronic lower extremity wounds/diabetes mellitus/obesity/hypertension/paroxysmal atrial fibrillation/GERD Complicates care, management, recovery and prognosis. Continue home medications per outpatient regimen. This note was generated with [employer] dictation software. It may contain incorrect words, spelling, and punctuation that were not noted in checking the note before signing. Code Visit Inpatient E&M: 45867 Subs Hosp L2
[2019-02-09] MEDS: Ipratropium/Albuterol Sulfate 3 ML AMPUL.NEB INHALATION ×4 (07:10→18:57)
[2019-02-09] MEDS: Glucerna Shake 120 ML LIQUID PO ×2 (08:13→11:43)
[2019-02-09] MEDS: Amiodarone 200 MG Tablet PO (08:14)
[2019-02-09] MEDS: Ferrous Sulfate 325 MG Tablet PO (08:14)
[2019-02-09] MEDS: DULoxetine Hcl 20 MG Capsule PO (08:15)
[2019-02-09] MEDS: amLODIPine 2.5 MG Tablet PO (08:15)
[2019-02-09] MEDS: Metoprolol Tartrate 50 MG Tablet PO ×2 (08:15→21:06)
[2019-02-09] MEDS: Pantoprazole Sodium 40 MG Tablet PO (08:16)
[2019-02-09] MEDS: APIXABAN 2.5 MG TABLET PO ×2 (08:16→21:06)
[2019-02-09] MEDS: Gabapentin 600 MG Tablet PO ×2 (08:16→21:06)
[2019-02-09] MEDS: Furosemide 40 MG Tablet PO (08:16)
[2019-02-09] MEDS: guaiFENesin 1,200 MG Tablet 1200 MG PO ×2 (08:16→21:06)
[2019-02-09] MEDS: Magnesium Oxide 400 MG Tablet PO ×2 (08:16→21:06)
[2019-02-09] MEDS: Benzonatate 100 MG Capsule 200 MG PO (09:25)
--- NOTE | 2019-02-09 09:32 | NURSING ---
called to room by press operator apprentice stating pt with feeling like she cant breath. pt repositioned higher in bed. discussed cough, pt states had a coughing fit and that primary RN had gotten meds ordered. states has chest discomfort related to coughing. Meds given. discussed cpap machine at bedside with patient. spo2 94% on 3lnc, increased RR and work of breathing audible wheeze at times. pt states will try cpap machine, refused another breathing treatment. assisted patient with placement of mask. on 35% o2 w/ mask. spo2 98% work of breathing decreased. call light within reach and encouraged patient to call for assist prior to removal of mask or if feels worse. Primary RN updated.
--- NOTE | 2019-02-09 09:40 | NURSING ---
respiratory therapy updated on patient
--- NOTE | 2019-02-09 10:47 | NURSING ---
This nurse talked with Dr. Hoyt about patient working hard to breathe this morning and put her on bipap. Made aware of lung sound findings by this nurse and the Troponin that was ordered by Dr. Pearson. Pt at first was wanting bipap off of her but she still has it on as of right now and is watching tv. Dr. Hoyt is aware that pt had chest xray yesterday 02/08/19.
[2019-02-09] MEDS: DAKIN'S SOL HALF STRENGTH (=0.25%) 1 APPLIC TOPICAL ×2 (11:28→20:43)
[2019-02-09] MEDS: Nystatin Powder 15gm Bottle 1 APPLIC TOPICAL ×2 (11:33→21:05)
[2019-02-09] MEDS: Menthol/Lanolin/Calamine/Znox 113 GM Tube 1 APPLIC TOPICAL ×2 (11:42→21:05)
--- NOTE | 2019-02-09 12:06 | RAD_ITS ---
STUDY: X-RAY CHEST REASON FOR EXAM: Female, 74 years old. INCREASED SHORTNESS OF BREATH TECHNIQUE: Single frontal view of the chest. COMPARISON: 02/08/2019 FINDINGS: Median sternotomy wires and CABG clips. 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 There is no demonstrated pleural abnormality. Stable cardiomediastinal silhouette. Normal mediastinum and alee. Normal visualized pulmonary arteries. Normal visualized aortic arch and descending thoracic aorta. Normal visualized thoracic spine. Normal visualized ribs, clavicles, and shoulders. There is no demonstrated abnormality of the visualized soft tissue structures of the upper abdomen. 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 Electronically Signed: Ney Ontiveros MD at 19:24 EST Tel , Service support ,
--- NOTE | 2019-02-09 12:06 | NURSING ---
Pt working hard to breathe again. Wanted sip of water took Bipap off and gave her a sip of water, left bipap off for approx 30 seconds or so and spo2 went down to 76% on RA. This nurse contacted Meli Charge Nurse to daniel Hoyt. Dr. Hoyt aware of the above and pt is working hard to breathe. Portable chest xray ordered.
--- NOTE | 2019-02-09 13:30 | NURSING ---
in to assist primary RN, notable work of breathing on bipap mask, respiratory therapist bedside, primary RN on phone again with Dr. Hoyt, requested his presence for evalution. lasix order obtained. this nurse called pharmacy to have lasix verified. forest fire specialist supervisor notified of situation @ 13:37. iv site went bad, new iv started using vein finder. lasix given 1340. unable to obtain 2nd iv site. lab to room, Dr Hoyt to bedside. Discussed intubation with patient. aware to obtain labs and re-evaluate w/ lasix given. this nurse obtained labs from iv site after wasting 10ml, as unable to otherwise obtain. Dr. Hoyt on phone with patient's family. primary RN remains beside.
[2019-02-09] MEDS: Furosemide 100 MG/10 ML Vial 60 MG IV (13:40)
--- NOTE | 2019-02-09 14:02 | NURSING ---
Pt was taking off bipap when this nurse walked in. Reapplied Bipap, Spo2 in 70's at first. I feel like i'm dying. this nurse called typo machine operator and asked for Dr. Hoyt if the chest xray had been viewed by him yet and if he could come see pt as breathing tx were not working and I thought pt needed lasix. Dr. Hoyt called back but first time said raise her bipap levels up. This nurse informed him that about an hour ago, CPS had already done so when chest xray was obtained. Dr. Hoyt called again by this nurse. Informed him that pt still not any better. CBC was then ordered and Dr. Hoyt said he reviewed the xray and to go ahead and give lasix 60mg iv. While this nurse waiting for the lasix, pt Vitals were obtained, see intervention. Lasix given and pt not working as hard to breathe and respirations [address] Hoyt came into the room to see pt not long after lasix was given and respirations were improving. Nancy COBB, Meli Velazquez, marketing operations analyst and this nurse in this room all with pt.
[2019-02-09 14:17] LABS: Absolute Lymphocyte Count 0.84 X10^3/uL (0.83-4.51); Absolute Neutrophil Count 15.6 X10^3/uL (2.0-7.7); Basophil# 0.03 X10^3/uL; Basophil% 0.2 % (0-1); Eosinophil# 0.02 X10^3/uL; Eosinophils% 0.1 % (0-5); Hematocrit 41.6 % (37-47); Hemoglobin 12.7 g/dL (12.0-15.0); Lymphocyte # 0.84 X10^3/ul (4.0); Lymphocyte % 4.8 % (19-41); Mean Corp Hgb Conc 30.5 g/dL (32-36); Mean Corpuscular Hgb 27.3 pg (27.0-32.0); Mean Corpuscular Volume 89.5 fL (81-99); Mean Platelet Vol. 10.3 fl (6.2-12.0); Monocyte# 0.67 X10^3/uL; Monocyte% 3.9 % (0-10); NRBC Flagged by Analyzer 0 % (0-5); Neutrophil % 89.7 % (47-70); Platelet Count 311 K/mm3 (150-450); Red Blood Count 4.65 M/mm3 (4.2-5.4); White Blood Count 17.4 K/mm3 (4.4-11.0)
[2019-02-09 14:54] LABS: BNP,B-Type NATRIURETIC PEPTIDE 459.8 pg/mL (0-100)
--- NOTE | 2019-02-09 15:24 | NURSING ---
Pt wanted something to drink. Sip of lorraine rod given with scheduled Apresoline po. Was off the Bipap for approx 1-2 min and spo2 was 95% but pt felt SOB so Bipap reapplied. pt states she does not feel as SOB with bipap on. Son and Daughter in law in visiting pt and update given. They talked to Dr. Hoyt whom called shortly after he came to see pt on the floor.
--- NOTE | 2019-02-09 16:09 | NURSING ---
This nurse asked Dr. Hoyt if he wanted pt on fluid restrictions, Dr. Hoyt did not. pt very thirsty d/t Bipap and keeps wanting a drink frequently.
--- NOTE | 2019-02-09 17:06 | PCM.PROGNOTE ---
Patient Problems: Active and Suspected Problems (Last Reviewed 02/07/19 @ 00:24 by Ozeil Angel MD) Sepsis (Acute) Community acquired pneumonia (Acute) Subjective: Patient was seen and examined today, this afternoon the patient had an increase in her respirations and appeared dyspneic, I obtained a chest x-ray which revealed increased bilateral infiltrates-I think this is probably CHF. I gave the patient extra IV Lasix and placed her on programmed IV Lasix. I also talked with her POA who is her [id number], her POA states that the patient is a DNR CC arrest with no intubation. I change the patient's CODE STATUS this afternoon to reflect this. Finally, I also had a talk in person with the patient's family who came up this afternoon and explained her medical conditions with them. - Physical Exam Vitals/I&O's: Vital Signs Temp Pulse Resp BP Pulse Ox 99.9 F H 86 24 H 170/71 H 93 02/09/19 15:16 02/09/19 15:16 02/09/19 15:16 02/09/19 15:16 02/09/19 15:16 Oxygen Flow Rate (L/min) 14 Oxygen Delivery Method Nasal Cannula Weight: 96.5 kg Body Mass Index (BMI) 41.5 Finger Stick Blood Glucose 187 Intake and Output for Last 24 Hours 02/07/19 02/08/19 02/09/19 23:59 23:59 23:59 Intake Total 1500 / 1500 560 / 960 1167.75 / 1167.75 Output Total 500 / 1150 1050 / 1050 Balance 1500 / 1500 60 / -190 117.75 / 117.75 General: Alert, Cooperative, Well developed, Confused, - - Patient is currently on BiPAP, she appears comfortable at this time HEENT: Atraumatic, PERRLA, EOMI, Normocephalic Oral: Moist Mucosa Neck: Supple, Trachea Midline, Thyroid Normal Size and Texture Lungs: Diminished, Wheezes - Expiratory wheezes bilaterally Cardiovascular: Regular rate, Regular Rhythm, Normal S1, Normal S2, No murmurs, PMI Normal, No rub noted Abdomen: Bowel Sounds Present, Soft, Non Tender, Non-Distended, Obese Extremities: No clubbing, No cyanosis, Capillary Refill Less than 3 Seconds, Edema - Generalized edema is noted over both lower legs Skin: No rashes, No breakdown Musculoskeletal: No Tenderness to Palpation of Joints or Extremities Neurological: Cranial nerves II-XII grossly intact, Neuro grossly intact, Sensory exam intact to light touch and pain Psych/Mental Status: Flat Affect, - - Patient is alert but confused Microbiology Past 72 Hours 02/06/19 21:00 Blood Culture (Wb) - Left Wrist Blood Culture - Preliminary No growth in 48 hours. 02/06/19 21:30 Blood Culture (Wb) - Left Hand Blood Culture - Preliminary No growth in 48 hours. 02/06/19 21:10 Urine Catheter - Catheter Urine Culture - Final Klebsiella pneumoniae sp pneum 02/07/19 03:40 Mucosa - Nasopharyngeal Influenza Types A,B Direct FA ([place]) - Final 02/06/19 21:12 Urine Catheter - Catheter Legionella Antigen - Final 02/06/19 21:12 Urine Catheter - Catheter Streptococcus pneumoniae Antigen (M - Final Laboratory Results 02/09/19 08:00: Troponin I < 0.015 02/09/19 14:05: WBC 17.4 H, RBC 4.65, Hgb 12.7, Hct 41.6, MCV 89.5, MCH 27.3, MCHC 30.5 L, RDW Std Deviation 52.0 H, RDW Coeff of Carissa 16.0 H, Plt Count 311, MPV 10.3, Immature Gran % (Auto) 1.300 H, Neut % (Auto) 89.7 H, Lymph % (Auto) 4.8 L, [place] % (Auto) 3.9, Eos % (Auto) 0.1, Baso % (Auto) 0.2, Absolute Neuts (auto) 15.6 H, Absolute Lymphs (auto) 0.84, Nucleated RBC % 0 02/09/19 14:05: B-Natriuretic Peptide 459.8 H Current Medications Acetaminophen (Tylenol) 650 mg PO Q6H PRN PRN PRN Reason: Pain Score 1-10/Temp > 100.7 F Last Admin: 02/09/19 05:03 Dose: 650 mg Documented by: Albuterol Sulfate (Ventolin Aerosols) 2.5 mg INHALATION Q2H PRN PRN PRN Reason: Shortness of Breath/Wheezing Last Admin: 02/08/19 17:29 Dose: 2.5 mg Documented by: Albuterol/Ipratropium (Duoneb) 3 ml INHALATION Q4HWA.RT [facility] Last Admin: 02/09/19 14:44 Dose: 3 ml Documented by: Amiodarone HCl (Cordarone) 200 mg PO DAILY [facility] Last Admin: 02/09/19 08:14 Dose: 200 mg Documented by: Amlodipine Besylate (Norvasc) 2.5 mg PO DAILY [facility] Last Admin: 02/09/19 08:15 Dose: 2.5 mg Documented by: Apixaban (Eliquis) 2.5 mg PO BID [facility] Last Admin: 02/09/19 08:16 Dose: 2.5 mg Documented by: Benzonatate (Tessalon Perle) 200 mg PO TID PRN PRN PRN Reason: COUGH Last Admin: 02/09/19 09:25 Dose: 200 mg Documented by: Calamine/Phenol (Calmoseptine Ointment) 1 applic TOPICAL BID [facility]; Protocol Last Admin: 02/09/19 11:42 Dose: 1 applicatio Documented by: Diphenhydramine HCl (Benadryl) 25 mg PO TID PRN PRN PRN Reason: ITCHING Donepezil HCl (Aricept) 5 mg PO QHS [facility] Last Admin: 02/08/19 23:05 Dose: 5 mg Documented by: Duloxetine HCl (Cymbalta) 20 mg PO DAILY [facility] Last Admin: 02/09/19 08:15 Dose: 20 mg Documented by: Ergocalciferol (Vitamin D) 50,000 unit PO MO [facility] Last Admin: 02/08/19 09:35 Dose: 50,000 unit Documented by: Ferrous Sulfate (Ferrous Sulfate) 325 mg PO DAILYCM [facility] Last Admin: 02/09/19 08:14 Dose: 325 mg Documented by: Furosemide (Lasix) 40 mg IV Q8 [facility] Gabapentin (Neurontin) 600 mg PO BID [facility] Last Admin: 02/09/19 08:16 Dose: 600 mg Documented by: Glucagon () 1 mg IM .X1 PRN PRN Reason: Hypoglycemia Guaifenesin (Mucinex) 1,200 mg PO BID [facility] Last Admin: 02/09/19 08:16 Dose: 1,200 mg Documented by: Hydralazine HCl (Apresoline) 50 mg PO TID [facility] Last Admin: 02/09/19 15:12 Dose: 50 mg Documented by: Meropenem 1 gm/ Sodium (Chloride) 120 mls @ 33 mls/hr IV Q12 [facility] Last Infusion: 02/09/19 12:30 Dose: Infused Documented by: Dextrose (Dextrose 10%-Water) 250 mls @ 999 mls/hr IV .Q16M PRN; Protocol PRN Reason: HYPOGLYCEMIA Sodium Chloride () 250 mls @ 15 mls/hr IV .[id number] PRN PRN Reason: Saline Flush Last Infusion: 02/09/19 14:18 Dose: Infused Documented by: Sodium Chloride () 250 mls @ 15 mls/hr IV .[id number] PRN PRN Reason: Additional IVPB Infusion Magnesium Oxide (Mag-Ox 400) 400 mg PO BID [facility] Last Admin: 02/09/19 08:16 Dose: 400 mg Documented by: Melatonin (Melatonin) 3 mg PO QHS PRN PRN PRN Reason: INSOMNIA Metoprolol Tartrate (Lopressor (Beta Tommy)) 50 mg PO BID [facility] Last Admin: 02/09/19 08:15 Dose: 50 mg Documented by: Morphine Sulfate () 2 - 4 mg IV Q3H PRN PRN PRN Reason: Pain Score 1-10/10 Morphine Sulfate () 2 - 4 mg IV Q3H PRN PRN PRN Reason: PAIN SCORE 1-10/10 Nutritional Formula (Lactose Free) (Glucerna Shake) 120 ml PO TIDCM [facility] Last Admin: 02/09/19 11:43 Dose: 120 ml Documented by: Nystatin (Mycostatin Powder) 1 applic TOPICAL BID [facility]; Protocol Last Admin: 02/09/19 11:33 Dose: 1 applicatio Documented by: Ondansetron HCl (Zofran) 4 mg IV Q8H PRN PRN PRN Reason: NAUSEA/VOMITING Pantoprazole Sodium (Protonix) 40 mg PO DAILY [facility] Last Admin: 02/09/19 08:16 Dose: 40 mg Documented by: Potassium Chloride (K-Dur) 20 meq PO BID [facility] Last Admin: 02/09/19 08:17 Dose: 20 meq Documented by: Sodium Chloride () 10 - 40 ml IV UD PRN PRN Reason: SALINE FLUSH Last Admin: 02/09/19 14:12 Dose: 40 ml Documented by: Sodium Hypochlorite (Dakins Solution 0.25% (1/2 Strength)) 1 applic TOPICAL BID [facility]; Protocol Last Admin: 02/09/19 11:28 Dose: 1 applicatio Documented by: Medical Necessity - Tobacco Use Smoking Status: Former smoker Assessment/Plan All Active Problems (Last Reviewed 02/07/19 @ 00:24 by Oziel Angel MD) Sepsis (Acute) Community acquired pneumonia (Acute) #1 sepsis secondary to community-acquired pneumonia-continue meropenem, pulmonary medicine recommended changing the patient to Levaquin but she is allergic to Cipro, for now, I have elected to keep the patient on meropenem #2 Community-acquired pneumonia-organism unknown #3 probable diastolic congestive heart failure-continue Lasix IV #4 chronic hypoxic respiratory failure #5 paroxysmal atrial fibrillation #6 type 2 diabetes #7 dementia #8 obstructive sleep apnea #9 restrictive lung disease #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
[2019-02-09] MEDS: Donepezil HCl 5 MG Tablet PO (21:06)
[2019-02-09] MEDS: Furosemide 40 MG/4 ML Vial IV (21:07)
[2019-02-09] MEDS: MELATONIN 3 MG TABLET PO (21:18)
[2019-02-10] VITALS (32 sets, daily range): BP systolic 113–133; BP diastolic 50–89; PULSE 60–75; RESP 12–28; TEMP 36.5–36.9; O2SAT 94–100
--- NOTE | 2019-02-10 04:00 | NURSING ---
Talked with Best OWEN daughter in law about patients night and how she was doing.
[2019-02-10 05:42] LABS: Anion Gap 4 (5-15); BUN 32 mg/dL (7-18); BUN/Creat Ratio 27.6 RATIO (10-20); Calcium,Total 8.3 mg/dL (8.5-10.1); Chloride 100 mmol/L (98-107); Creatinine, Serum 1.16 mg/dL (0.55-1.02); EST Glomerular Filtration Rate 48 mL/min (>60); Est Glom Filt Rate - Afr Amer 59 mL/min (>60); Glucose 82 mg/dL (74-106); Potassium 3.3 mmol/L (3.5-5.1); Sodium Level 141 mmol/L (136-145)
[2019-02-10] MEDS: 0.9% Saline Lock 10 ML Syringe IV ×3 (07:01→18:16)
[2019-02-10] MEDS: Furosemide 40 MG/4 ML Vial IV ×2 (07:01→18:16)
[2019-02-10] MEDS: hydrALAZINE 50 MG Tablet PO ×2 (07:01→13:48)
[2019-02-10] MEDS: Ipratropium/Albuterol Sulfate 3 ML AMPUL.NEB INHALATION ×5 (07:18→23:04)
--- NOTE | 2019-02-10 07:18 | CPS ---
Patient on BiPAP, PEP therapy not done at this time.
--- NOTE | 2019-02-10 09:10 | PN_ITS ---
Patient Problems: Active and Suspected Problems (Last Reviewed 02/07/19 @ 00:24 by Oziel Angel MD) Sepsis (Acute) Community acquired pneumonia (Acute) Subjective: Patient did well overnight. Patient does reports significant dyspnea on exertion. Patient continues to refuse BiPAP overnight. Patient continues to report chest heaviness, but is unclear if this is worse with exertion. Patient does report it is exacerbated by coughing. Patient has been unable to produce any sputum. Patient does report she has had a dry mouth. - Physical Exam Vitals/I&O's: Vital Signs Temp Pulse Resp BP Pulse Ox 36.9 C 73 27 H 133/89 H 96 02/10/19 04:11 02/10/19 08:38 02/10/19 07:18 02/10/19 07:01 02/10/19 07:14 Oxygen Flow Rate (L/min) 14 Oxygen Delivery Method Bi-pap Weight: 96.5 kg Body Mass Index (BMI) 41.5 Finger Stick Blood Glucose 187 Intake and Output for Last 24 Hours 02/08/19 02/09/19 02/10/19 23:59 23:59 23:59 Intake Total 560 / 960 1835.00 / 1835.00 354.5 / 354.5 Output Total 500 / 1150 1650 / 1650 325 / 325 Balance 60 / -190 185.00 / 185.00 29.5 / 29.5 General: Alert, Cooperative, No apparent distress, - - Morbidly obese. HEENT: Atraumatic, PERRLA, EOMI, Normocephalic, - - No scleral icterus or injection noted Oral: No Gingival or Mucosal Lesions/ Ulcerations, Dry Mucosa, - - Chapped lips noted. Neck: Supple, No Nodes, Trachea Midline Lungs: No rhonchi, No rales, Diminished, - - Mild end expiratory wheezing noted Cardiovascular: Regular rate, Regular Rhythm, Normal S1, Normal S2, No murmurs, No rub noted, No Gallop Abdomen: Bowel Sounds Present, Soft, Non Tender, Non-Distended, Obese Extremities: No clubbing, No cyanosis, - - Freshly wrapped lower extremities. Mild erythema of the toes. Skin: - - Lower extremities not evaluated secondary to [place] wraps Musculoskeletal: Tenderness - Palpation of the lower extremities Lymphatic: No Cervical, Supraclavicular, or Inguinal Adenopathy Neurological: Cranial nerves II-XII grossly intact, Neuro grossly intact, Motor Exam 5/5 strength throughout Psych/Mental Status: Normal Affect, Anxious Microbiology Past 72 Hours 02/06/19 21:00 Blood Culture (Wb) - Left Wrist Blood Culture - Preliminary No growth in 48 hours. 02/06/19 21:30 Blood Culture (Wb) - Left Hand Blood Culture - Preliminary No growth in 48 hours. 02/06/19 21:10 Urine Catheter - Catheter Urine Culture - Final Klebsiella pneumoniae sp pneum 02/07/19 03:40 Mucosa - Nasopharyngeal Influenza Types A,B Direct FA ([place]) - Final 02/06/19 21:12 Urine Catheter - Catheter Legionella Antigen - Final 02/06/19 21:12 Urine Catheter - Catheter Streptococcus pneumoniae Antigen (M - Final Laboratory Results 02/09/19 14:05: WBC 17.4 H, RBC 4.65, Hgb 12.7, Hct 41.6, MCV 89.5, MCH 27.3, MCHC 30.5 L, RDW Std Deviation 52.0 H, RDW Coeff of Carissa 16.0 H, Plt Count 311, MPV 10.3, Immature Gran % (Auto) 1.300 H, Neut % (Auto) 89.7 H, Lymph % (Auto) 4.8 L, [place] % (Auto) 3.9, Eos % (Auto) 0.1, Baso % (Auto) 0.2, Absolute Neuts (auto) 15.6 H, Absolute Lymphs (auto) 0.84, Nucleated RBC % 0 02/09/19 14:05: B-Natriuretic Peptide 459.8 H 02/10/19 04:55: Sodium 141, Potassium 3.3 L, Chloride 100, Carbon Dioxide 37.0 H , Anion Gap 4 L, BUN 32 H, Creatinine 1.16 H, Estim Creat Clear Calc 30.10, Est GFR (MDRD) Af Amer 59 L, Est GFR (MDRD) Non-Af 48 L, BUN/Creatinine Ratio 27.6 H , Glucose 82, Calcium 8.3 L Current Medications Acetaminophen (Tylenol) 650 mg PO Q6H PRN PRN PRN Reason: Pain Score 1-10/Temp > 100.7 F Last Admin: 02/09/19 21:18 Dose: 650 mg Documented by: Albuterol Sulfate (Ventolin Aerosols) 2.5 mg INHALATION Q2H PRN PRN PRN Reason: Shortness of Breath/Wheezing Last Admin: 02/08/19 17:29 Dose: 2.5 mg Documented by: Albuterol/Ipratropium (Duoneb) 3 ml INHALATION Q4HWA.RT [facility] Last Admin: 02/10/19 07:18 Dose: 3 ml Documented by: Amiodarone HCl (Cordarone) 200 mg PO DAILY [facility] Last Admin: 02/09/19 08:14 Dose: 200 mg Documented by: Amlodipine Besylate (Norvasc) 2.5 mg PO DAILY [facility] Last Admin: 02/09/19 08:15 Dose: 2.5 mg Documented by: Apixaban (Eliquis) 2.5 mg PO BID [facility] Last Admin: 02/09/19 21:06 Dose: 2.5 mg Documented by: Benzonatate (Tessalon Perle) 200 mg PO TID PRN PRN PRN Reason: COUGH Last Admin: 02/09/19 09:25 Dose: 200 mg Documented by: Calamine/Phenol (Calmoseptine Ointment) 1 applic TOPICAL BID [facility]; Protocol Last Admin: 02/09/19 21:05 Dose: 1 applicatio Documented by: Diphenhydramine HCl (Benadryl) 25 mg PO TID PRN PRN PRN Reason: ITCHING Donepezil HCl (Aricept) 5 mg PO QHS [facility] Last Admin: 02/09/19 21:06 Dose: 5 mg Documented by: Duloxetine HCl (Cymbalta) 20 mg PO DAILY [facility] Last Admin: 02/09/19 08:15 Dose: 20 mg Documented by: Ergocalciferol (Vitamin D) 50,000 unit PO MO [facility] Last Admin: 02/08/19 09:35 Dose: 50,000 unit Documented by: Ferrous Sulfate (Ferrous Sulfate) 325 mg PO DAILYCM [facility] Last Admin: 02/09/19 08:14 Dose: 325 mg Documented by: Furosemide (Lasix) 40 mg IV BID@1000,1800 [facility] Gabapentin (Neurontin) 600 mg PO BID [facility] Last Admin: 02/09/19 21:06 Dose: 600 mg Documented by: Glucagon () 1 mg IM .X1 PRN PRN Reason: Hypoglycemia Guaifenesin (Mucinex) 1,200 mg PO BID [facility] Last Admin: 02/09/19 21:06 Dose: 1,200 mg Documented by: Hydralazine HCl (Apresoline) 50 mg PO TID [facility] Last Admin: 02/10/19 07:01 Dose: 50 mg Documented by: Meropenem 1 gm/ Sodium (Chloride) 120 mls @ 33 mls/hr IV Q12 [facility] Last Infusion: 02/10/19 01:05 Dose: Infused Documented by: Dextrose (Dextrose 10%-Water) 250 mls @ 999 mls/hr IV .Q16M PRN; Protocol PRN Reason: HYPOGLYCEMIA Sodium Chloride () 250 mls @ 15 mls/hr IV .[id number] PRN PRN Reason: Saline Flush Last Infusion: 02/10/19 01:23 Dose: 0 mls/hr Documented by: Sodium Chloride () 250 mls @ 15 mls/hr IV .[id number] PRN PRN Reason: Additional IVPB Infusion Magnesium Oxide (Mag-Ox 400) 400 mg PO BID [facility] Last Admin: 02/09/19 21:06 Dose: 400 mg Documented by: Melatonin (Melatonin) 3 mg PO QHS PRN PRN PRN Reason: INSOMNIA Last Admin: 02/09/19 21:18 Dose: 3 mg Documented by: Metoprolol Tartrate (Lopressor (Beta Tommy)) 50 mg PO BID [facility] Last Admin: 02/09/19 21:06 Dose: 50 mg Documented by: Morphine Sulfate () 2 - 4 mg IV Q3H PRN PRN PRN Reason: Pain Score 1-10/10 Morphine Sulfate () 2 - 4 mg IV Q3H PRN PRN PRN Reason: PAIN SCORE 1-10/10 Nutritional Formula (Lactose Free) (Glucerna Shake) 120 ml PO TIDCM [facility] Last Admin: 02/09/19 17:34 Dose: Not Given Documented by: Nystatin (Mycostatin Powder) 1 applic TOPICAL BID [facility]; Protocol Last Admin: 02/09/19 21:05 Dose: 1 applicatio Documented by: Ondansetron HCl (Zofran) 4 mg IV Q8H PRN PRN PRN Reason: NAUSEA/VOMITING Pantoprazole Sodium (Protonix) 40 mg PO DAILY [facility] Last Admin: 02/09/19 08:16 Dose: 40 mg Documented by: Potassium Chloride (K-Dur) 20 meq PO BID [facility] Last Admin: 02/09/19 21:06 Dose: 20 meq Documented by: Sodium Chloride () 10 - 40 ml IV UD PRN PRN Reason: SALINE FLUSH Last Admin: 02/10/19 07:01 Dose: 10 ml Documented by: Sodium Hypochlorite (Dakins Solution 0.25% (1/2 Strength)) 1 applic TOPICAL BID [facility]; Protocol Last Admin: 02/09/19 20:43 Dose: 1 applicatio Documented by: Clinical Impression(s) from Imaging Studies Chest X-Ray 02/09/19 12:06 IMPRESSION: 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 Electronically Signed: Ney Ontiveros MD at 19:24 EST Tel , Service support , Medical Necessity - Tobacco Use Smoking Status: Former smoker Assessment/Plan All Active Problems (Last Reviewed 02/07/19 @ 00:24 by Oziel Angel MD) Sepsis (Acute) Community acquired pneumonia (Acute) RECOMMENDATIONS: 1. Consider transition to Levaquin to complete 7-day treatment course of antibiotics. 2. May need transitioned over to p.o. Lasix 3. Continue lower extremity wound care 4. Wean supplemental oxygen to maintain saturations at or above 90%. 5. Encourage incentive spirometer use and mobilize patient as tolerated. 6. Encourage BiPAP therapy with naps and nightly. 7. Perform walking oximetry study prior to consideration for discharge home. 8. Outpatient pulmonary follow-up within 2 weeks of discharge is warranted. IMPRESSIONS: 1. Acute hypoxemic respiratory insufficiency secondary to possible commun ity-acquired pneumonia versus heart failure exacerbation Patient does have constitutional symptoms consistent with community- acquired pneumonia. Patient continues on meropenem, but would likely be reasonably controlled with Levaquin. Patient did have an elevated BNP, but is appearing clinically euvolemic to dry. Patient did not have evidence of obstructive lung disease in December, but this can be reevaluated as an outpatient. Continue to encourage mobilization, incentive spirometer use and pulmonary toileting as tolerated. Patient will need a walking oximetry prior to discharge. BiPAP may also help with basilar recruitment, but patient appears to be resistant. 2. Obstructive sleep apnea The patient has a known history of LAURITA and is currently noncompliant with the use of nocturnal Pap therapy. However, while admitted to the hospital, the patient will be maintained on nocturnal BiPAP therapy with a pressure support of 12/6 centimeters of water. 3. Chronic lower extremity wounds/diabetes mellitus/obesity/hypertension/paroxysmal atrial fibrillation/GERD Complicates care, management, recovery and prognosis. Continue home medications per outpatient regimen. Code Visit Inpatient E&M: 83319 Subs Hosp L2
--- NOTE | 2019-02-10 09:19 | ECHOD_ITS ---
Reason For Study: CHF Procedure This was a 2D Doppler, Color Flow transthoracic echocardiogram. The study was technically difficult. Exam performed portable in patient room. Left Ventricle Normal LV size. Left ventricular systolic function is normal. The estimated ejection fraction is 65 %. No regional wall motion abnormalities noted. Right Ventricle Normal RV size. Normal systolic function. Atria The left atrium is mildly enlarged. Normal right atrium. Mitral Valve Normal mitral valve. There is mild mitral annular calcification. Tricuspid Valve Normal tricuspid valve. Aortic Valve The aortic valve is not well visualized. Great Vessels Normal aortic root. The pulmonary artery is normal size. Normal inferior vena cava. Pericardium/Pleural No pericardial effusion. MMode/2D Measurements & Calculations LVIDd: 5.0 cm IVSd: 1.1 cm LAV(MOD-bp): 91.6 ml LVIDs: 2.9 cm LVPWd: 1.1 cm LAV(MOD-bp) Indexed: 47.9 ml/m2 FS: 41.2 % LAV(MOD-sp2): 89.5 ml LAV(MOD-sp4): 94.8 ml LA A4 area: 26.3 cm2 LA dimension(2D): 4.7 cm Time Measurements MV dec time: 0.22 sec Doppler Measurements & Calculations MV E max landon: 88.3 cm/sec Lat Peak E' Landon: 5.8 cm/sec Med Peak E' L[place]: 4.7 cm/sec MV A max landon: 69.3 cm/sec E/E' lat: 15.2 E/E' med: 18.7 MV E/A: 1.3 Ao V2 max: 161.4 cm/sec LV V1 max: 105.2 cm/sec PA V2 max: 115.1 cm/sec Ao max P.4 mmHg LV V1 max P.4 mmHg Interpretation Summary Normal LV size. Left ventricular systolic function is normal. The estimated ejection fraction is 65 %. There is mild mitral annular calcification. Ordering Physician: Kary Monk Referring Physician: Uriel Mac Performed By: Mindy Esposito, LIUDMILA, RVT
--- NOTE | 2019-02-10 09:47 | PCM.PROGNOTE ---
Subjective: Chief complaint: Follow-up after admission for acute hypoxic respiratory failure secondary to probable pneumonia versus CHF exacerbation. Patient seen and examined. No acute events overnight. She mentioned that her breathing is minimally improved compared to admission, still having significant shortness of breath upon exertion. She reported mild coughing, no sputum production. She has been afebrile, blood pressure and heart rate are stable, pulse ox is 92% on 3 L.. - Physical Exam Vitals/I&O's: Vital Signs Temp Pulse Resp BP Pulse Ox 98.4 F 73 27 H 133/89 H 96 02/10/19 04:11 02/10/19 08:38 02/10/19 07:18 02/10/19 07:01 02/10/19 07:14 Oxygen Flow Rate (L/min) 14 Oxygen Delivery Method Bi-pap Weight: 212 lb 11.937 oz Body Mass Index (BMI) 41.5 Finger Stick Blood Glucose 187 Intake and Output for Last 24 Hours 02/08/19 02/09/19 02/10/19 23:59 23:59 23:59 Intake Total 560 / 960 1835.00 / 1835.00 354.5 / 354.5 Output Total 500 / 1150 1650 / 1650 325 / 325 Balance 60 / -190 185.00 / 185.00 29.5 / 29.5 General: Alert, Oriented x3, Cooperative, - - Moderately short of breath. HEENT: Atraumatic, PERRLA, EOMI, Normocephalic Oral: Moist Mucosa, No Gingival or Mucosal Lesions/ Ulcerations Neck: Supple, No JVD, Negative Carotid Bruits, Trachea Midline, Thyroid Normal Size and Texture Lungs: No rales, Diminished, Short of Breath, Wheezes, - - Decreased sounds bilateral, bilateral expiratory wheezes. Cardiovascular: Regular rate, Regular Rhythm, Normal S1, Normal S2, PMI Normal Abdomen: Bowel Sounds Present, Soft, Non Tender, Non-Distended, No Hepato-splenomegaly Extremities: No clubbing, No cyanosis, Edema Skin: No rashes, No breakdown Lymphatic: No Cervical, Supraclavicular, or Inguinal Adenopathy Neurological: Cranial nerves II-XII grossly intact, Motor Exam 5/5 strength throughout Psych/Mental Status: Normal Affect, Appropriate, Alert and oriented to time, place, person, mood and affect Microbiology Past 72 Hours 02/06/19 21:00 Blood Culture (Wb) - Left Wrist Blood Culture - Preliminary No growth in 48 hours. 02/06/19 21:30 Blood Culture (Wb) - Left Hand Blood Culture - Preliminary No growth in 48 hours. 02/06/19 21:10 Urine Catheter - Catheter Urine Culture - Final Klebsiella pneumoniae sp pneum Laboratory Results 02/09/19 14:05: WBC 17.4 H, RBC 4.65, Hgb 12.7, Hct 41.6, MCV 89.5, MCH 27.3, MCHC 30.5 L, RDW Std Deviation 52.0 H, RDW Coeff of Carissa 16.0 H, Plt Count 311, MPV 10.3, Immature Gran % (Auto) 1.300 H, Neut % (Auto) 89.7 H, Lymph % (Auto) 4.8 L, Hopkins % (Auto) 3.9, Eos % (Auto) 0.1, Baso % (Auto) 0.2, Absolute Neuts (auto) 15.6 H, Absolute Lymphs (auto) 0.84, Nucleated RBC % 0 02/09/19 14:05: B-Natriuretic Peptide 459.8 H 02/10/19 04:55: Sodium 141, Potassium 3.3 L, Chloride 100, Carbon Dioxide 37.0 H, Anion Gap 4 L, BUN 32 H, Creatinine 1.16 H, Estim Creat Clear Calc 30.10, Est GFR (MDRD) Af Amer 59 L, Est GFR (MDRD) Non-Af 48 L, BUN/Creatinine Ratio 27.6 H, Glucose 82, Calcium 8.3 L Clinical Impression(s) from Imaging Studies Chest X-Ray 02/09/19 12:06 IMPRESSION: 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 Electronically Signed: Ney Ontiveros MD at 19:24 EST Tel , Service support , Current Medications Acetaminophen (Tylenol) 650 mg PO Q6H PRN PRN PRN Reason: Pain Score 1-10/Temp > 100.7 F Last Admin: 02/09/19 21:18 Dose: 650 mg Documented by: Albuterol Sulfate (Ventolin Aerosols) 2.5 mg INHALATION Q2H PRN PRN PRN Reason: Shortness of Breath/Wheezing Last Admin: 02/08/19 17:29 Dose: 2.5 mg Documented by: Albuterol/Ipratropium (Duoneb) 3 ml INHALATION Q4HWA.RT REPLACED BY [facility] Last Admin: 02/10/19 07:18 Dose: 3 ml Documented by: Amiodarone HCl (Cordarone) 200 mg PO DAILY REPLACED BY [facility] Last Admin: 02/09/19 08:14 Dose: 200 mg Documented by: Amlodipine Besylate (Norvasc) 2.5 mg PO DAILY REPLACED BY [facility] Last Admin: 02/09/19 08:15 Dose: 2.5 mg Documented by: Apixaban (Eliquis) 2.5 mg PO BID REPLACED BY [facility] Last Admin: 02/09/19 21:06 Dose: 2.5 mg Documented by: Benzonatate (Tessalon Perle) 200 mg PO TID PRN PRN PRN Reason: COUGH Last Admin: 02/09/19 09:25 Dose: 200 mg Documented by: Calamine/Phenol (Calmoseptine Ointment) 1 applic TOPICAL BID REPLACED BY [facility]; Protocol Last Admin: 02/09/19 21:05 Dose: 1 applicatio Documented by: Diphenhydramine HCl (Benadryl) 25 mg PO TID PRN PRN PRN Reason: ITCHING Donepezil HCl (Aricept) 5 mg PO QHS REPLACED BY [facility] Last Admin: 02/09/19 21:06 Dose: 5 mg Documented by: Duloxetine HCl (Cymbalta) 20 mg PO DAILY REPLACED BY [facility] Last Admin: 02/09/19 08:15 Dose: 20 mg Documented by: Ergocalciferol (Vitamin D) 50,000 unit PO MO REPLACED BY [facility] Last Admin: 02/08/19 09:35 Dose: 50,000 unit Documented by: Ferrous Sulfate (Ferrous Sulfate) 325 mg PO DAILYCM REPLACED BY [facility] Last Admin: 02/09/19 08:14 Dose: 325 mg Documented by: Furosemide (Lasix) 40 mg IV BID@1000,1800 MELISSA Gabapentin (Neurontin) 600 mg PO BID REPLACED BY [facility] Last Admin: 02/09/19 21:06 Dose: 600 mg Documented by: Glucagon () 1 mg IM .X1 PRN PRN Reason: Hypoglycemia Guaifenesin (Mucinex) 1,200 mg PO BID REPLACED BY [facility] Last Admin: 02/09/19 21:06 Dose: 1,200 mg Documented by: Hydralazine HCl (Apresoline) 50 mg PO TID REPLACED BY [facility] Last Admin: 02/10/19 07:01 Dose: 50 mg Documented by: Meropenem 1 gm/ Sodium (Chloride) 120 mls @ 33 mls/hr IV Q12 MELISSA Last Infusion: 02/10/19 01:05 Dose: Infused Documented by: Dextrose (Dextrose 10%-Water) 250 mls @ 999 mls/hr IV .Q16M PRN; Protocol PRN Reason: HYPOGLYCEMIA Sodium Chloride () 250 mls @ 15 mls/hr IV .[id number] PRN PRN Reason: Saline Flush Last Infusion: 02/10/19 01:23 Dose: 0 mls/hr Documented by: Sodium Chloride () 250 mls @ 15 mls/hr IV .[id number] PRN PRN Reason: Additional IVPB Infusion Magnesium Oxide (Mag-Ox 400) 400 mg PO BID REPLACED BY [facility] Last Admin: 02/09/19 21:06 Dose: 400 mg Documented by: Melatonin (Melatonin) 3 mg PO QHS PRN PRN PRN Reason: INSOMNIA Last Admin: 02/09/19 21:18 Dose: 3 mg Documented by: Metoprolol Tartrate (Lopressor (Beta Tommy)) 50 mg PO BID REPLACED BY [facility] Last Admin: 02/09/19 21:06 Dose: 50 mg Documented by: Morphine Sulfate () 2 - 4 mg IV Q3H PRN PRN PRN Reason: Pain Score 1-10/10 Morphine Sulfate () 2 - 4 mg IV Q3H PRN PRN PRN Reason: PAIN SCORE 1-10/10 Nutritional Formula (Lactose Free) (Glucerna Shake) 120 ml PO TIDCM REPLACED BY [facility] Last Admin: 02/09/19 17:34 Dose: Not Given Documented by: Nystatin (Mycostatin Powder) 1 applic TOPICAL BID REPLACED BY [facility]; Protocol Last Admin: 02/09/19 21:05 Dose: 1 applicatio Documented by: Ondansetron HCl (Zofran) 4 mg IV Q8H PRN PRN PRN Reason: NAUSEA/VOMITING Pantoprazole Sodium (Protonix) 40 mg PO DAILY REPLACED BY [facility] Last Admin: 02/09/19 08:16 Dose: 40 mg Documented by: Potassium Chloride (K-Dur) 20 meq PO BID REPLACED BY [facility] Last Admin: 02/09/19 21:06 Dose: 20 meq Documented by: Sodium Chloride () 10 - 40 ml IV UD PRN PRN Reason: SALINE FLUSH Last Admin: 02/10/19 07:01 Dose: 10 ml Documented by: Sodium Hypochlorite (Dakins Solution 0.25% (1/2 Strength)) 1 applic TOPICAL BID MELISSA; Protocol Last Admin: 02/09/19 20:43 Dose: 1 applicatio Documented by: Medical Necessity - Tobacco Use Smoking Status: Former smoker Assessment/Plan This is a 74 years old female patient presented to the emergency because of shortness of breath and fever and she was found to have bibasilar lung infiltrate consistent with pneumonia and also found to have probable acute diastolic CHF and both are complicated by acute hypoxic respiratory failure. #1 acute community-acquired pneumonia/sepsis: She is on IV meropenem. She has been afebrile, WBC is trending up. Patient still requiring oxygen. Pneumococcal and Legionella antigen were negative. Blood culture showed no growth at 48 hours. Nasal swab for influenza a and B were negative. Respiratory panel for viruses pending. Urine culture revealed Klebsiella pneumoniae although there was no strong evidence of UTI on urinalysis. Patient still requiring oxygen up to 4 L. Plan to continue same treatment. #2 probable acute diastolic CHF: This is based on her symptoms in addition to elevated BNP. She is on IV Lasix as well as metoprolol. EKG without acute ischemic changes. Troponin is negative. Today potassium is slightly low, BUN and creatinine started to go up because of IV Lasix. 2D echocardiogram ordered. Plan to decrease IV Lasix to twice daily, replace potassium, repeat BMP tomorrow morning. #3 acute hypoxic respiratory failure: Secondary to #1 and #2. Patient mentioned that she never been on oxygen at home. At this time, she is requiring up to 4 L. Reportedly, patient has been refusing BiPAP overnight. Plan to continue IV diuresis, IV antibiotics and bronchodilators. #4 CAD status post CABG: Stable, continue Eliquis, metoprolol. #5 paroxysmal atrial fibrillation: Rate is controlled, continue amiodarone and metoprolol for rate control, continue Eliquis for anticoagulation. #6 obstructive sleep apnea: Noncompliant, has been refusing BiPAP during this hospital stay. Pulmonology recommended nocturnal BiPAP. #7 dementia: Continue Aricept. #8 chronic bilateral lower extremity ulcers/wounds: Without evidence of acute infection. Wound care nurse consulted. #9 DVT prophylaxis: Continue Eliquis. This note was generated with [email or web address] dictation software. It may contain incorrect words, spelling, and punctuation that were not noted in checking the note before signing. Code Visit Inpatient E&M: 28390 Subs Hosp L2
[2019-02-10] MEDS: Magnesium Oxide 400 MG Tablet PO ×2 (10:04→22:10)
[2019-02-10] MEDS: Menthol/Lanolin/Calamine/Znox 113 GM Tube 1 APPLIC TOPICAL ×2 (10:05→22:09)
[2019-02-10] MEDS: Pantoprazole Sodium 40 MG Tablet PO (10:05)
[2019-02-10] MEDS: DULoxetine Hcl 20 MG Capsule PO (10:05)
[2019-02-10] MEDS: Ferrous Sulfate 325 MG Tablet PO (10:05)
[2019-02-10] MEDS: Amiodarone 200 MG Tablet PO (10:05)
--- NOTE | 2019-02-10 10:05 | CPS ---
Patient off BiPAP per RN.
[2019-02-10] MEDS: DAKIN'S SOL HALF STRENGTH (=0.25%) 1 APPLIC TOPICAL ×2 (10:06→22:09)
[2019-02-10] MEDS: APIXABAN 2.5 MG TABLET PO ×2 (10:07→22:07)
[2019-02-10] MEDS: Metoprolol Tartrate 50 MG Tablet PO ×2 (10:08→22:08)
[2019-02-10] MEDS: guaiFENesin 1,200 MG Tablet 1200 MG PO ×2 (10:11→22:10)
[2019-02-10] MEDS: Nystatin Powder 15gm Bottle 1 APPLIC TOPICAL ×2 (10:11→22:11)
[2019-02-10] MEDS: Gabapentin 600 MG Tablet PO ×2 (10:12→22:11)
[2019-02-10] MEDS: Glucerna Shake 120 ML LIQUID PO ×3 (10:12→17:25)
[2019-02-10] MEDS: amLODIPine 2.5 MG Tablet PO (10:12)
--- NOTE | 2019-02-10 10:27 | CASEMGMT ---
Social Work Note Per physician pt will be at [facility] for two more days. SW faxed updated clinicals to [facility] and wrote on fax coversheet that pt will be at [facility] for couple more days. Plan: [facility] pending pre-cert Digna NGUYEN, HOSPITAL ADMISSIONS CLERK
--- NOTE | 2019-02-10 11:25 | CPS ---
FiO2 decreased to 30%.
[2019-02-10] MEDS: Acetaminophen 325 MG Tablet 650 MG PO (13:47)
--- NOTE | 2019-02-10 18:05 | CPS ---
Patient off BiPAP, eating dinner. She stated she feels better today than she has in the past several days.
[2019-02-10] MEDS: Donepezil HCl 5 MG Tablet PO (22:06)
[2019-02-11] VITALS (21 sets, daily range): BP systolic 120–141; BP diastolic 48–67; PULSE 63–81; RESP 12–24; TEMP 36.3–36.9; O2SAT 94–100
[2019-02-11 01:40] LABS: Absolute Lymphocyte Count 1.25 X10^3/uL (0.83-4.51); Absolute Neutrophil Count 6.2 X10^3/uL (2.0-7.7); Basophil# 0.03 X10^3/uL; Basophil% 0.4 % (0-1); Eosinophil# 0.18 X10^3/uL; Eosinophils% 2.2 % (0-5); Hematocrit 39.9 % (37-47); Hemoglobin 12.1 g/dL (12.0-15.0); Lymphocyte # 1.25 X10^3/ul (4.0); Lymphocyte % 15.3 % (19-41); Mean Corp Hgb Conc 30.3 g/dL (32-36); Mean Corpuscular Hgb 27.2 pg (27.0-32.0); Mean Corpuscular Volume 89.7 fL (81-99); Mean Platelet Vol. 11.2 fl (6.2-12.0); Monocyte# 0.43 X10^3/uL; Monocyte% 5.3 % (0-10); NRBC Flagged by Analyzer 0 % (0-5); Neutrophil # 6.18 X10^3/uL (2.7-7.7); Neutrophil % 75.3 % (47-70); POSITIVE COUNT YES; Platelet Count 150 K/mm3 (150-450); RBC Distribution Width CV 15.8 % (11.6-14.6); RBC Distribution Width SD 51.8 fl (35.1-43.9); Red Blood Count 4.45 M/mm3 (4.2-5.4); White Blood Count 8.2 K/mm3 (4.4-11.0)
[2019-02-11 01:55] LABS: Differential Comment SCANNED; Differential Indicated SCAN CRITERIA MET
[2019-02-11 01:56] LABS: Platelet Estimate ADEQUATE (ADEQ); Platelet Morphology CLUMPED
[2019-02-11 05:28] LABS: Absolute Lymphocyte Count 1.22 X10^3/uL (0.83-4.51); Absolute Neutrophil Count 6.2 X10^3/uL (2.0-7.7); Basophil# 0.01 X10^3/uL; Basophil% 0.1 % (0-1); Eosinophil# 0.21 X10^3/uL; Eosinophils% 2.6 % (0-5); Hematocrit 35.8 % (37-47); Hemoglobin 10.7 g/dL (12.0-15.0); Lymphocyte # 1.22 X10^3/ul (4.0); Mean Corp Hgb Conc 29.9 g/dL (32-36); Mean Corpuscular Hgb 26.8 pg (27.0-32.0); Mean Corpuscular Volume 89.7 fL (81-99); Mean Platelet Vol. 10.2 fl (6.2-12.0); Monocyte# 0.41 X10^3/uL; NRBC Flagged by Analyzer 0 % (0-5); Neutrophil # 6.21 X10^3/uL (2.7-7.7); Neutrophil % 76.4 % (47-70); Platelet Count 219 K/mm3 (150-450); RBC Distribution Width CV 15.9 % (11.6-14.6); RBC Distribution Width SD 52.3 fl (35.1-43.9); Red Blood Count 3.99 M/mm3 (4.2-5.4); White Blood Count 8.1 K/mm3 (4.4-11.0)
[2019-02-11 05:44] LABS: Anion Gap 6 (5-15); BUN 36 mg/dL (7-18); BUN/Creat Ratio 29.8 RATIO (10-20); Calcium,Total 8.6 mg/dL (8.5-10.1); Chloride 101 mmol/L (98-107); Creatinine, Serum 1.21 mg/dL (0.55-1.02); EST Glomerular Filtration Rate 46 mL/min (>60); Est Glom Filt Rate - Afr Amer 56 mL/min (>60); Estimated Creatinine Clearance 28.86 ml/min; Glucose 97 mg/dL (74-106); Potassium 3.8 mmol/L (3.5-5.1); Sodium Level 141 mmol/L (136-145)
[2019-02-11] MEDS: hydrALAZINE 50 MG Tablet PO ×3 (06:15→21:53)
[2019-02-11] MEDS: Ferrous Sulfate 325 MG Tablet PO (09:01)
[2019-02-11] MEDS: Magnesium Oxide 400 MG Tablet PO ×2 (09:02→21:54)
[2019-02-11] MEDS: Gabapentin 600 MG Tablet PO ×2 (09:02→21:53)
[2019-02-11] MEDS: Glucerna Shake 120 ML LIQUID PO ×2 (09:02→18:01)
[2019-02-11] MEDS: Pantoprazole Sodium 40 MG Tablet PO (09:02)
[2019-02-11] MEDS: APIXABAN 2.5 MG TABLET PO ×2 (09:03→21:54)
--- NOTE | 2019-02-11 09:22 | PCM.PROGNOTE ---
Subjective: Chief complaint: Follow-up after admission for acute hypoxic respiratory failure secondary to community-acquired pneumonia and probable CHF exacerbation. Patient seen and examined. No acute events overnight this morning, she feels much better, shortness of breath improved and she is requiring less oxygen. She mentioned that she was able to sleep last night. Denied chest pain. She has been afebrile, blood pressure and heart rate are stable, pulse ox is 100% on 3 L. - Physical Exam Vitals/I&O's: Vital Signs Temp Pulse Resp BP Pulse Ox 97.3 F L 70 24 H 137/57 H 100 02/11/19 09:06 02/11/19 09:06 02/11/19 09:06 02/11/19 09:06 02/11/19 09:06 Oxygen Flow Rate (L/min) 3 Oxygen Delivery Method Nasal Cannula Weight: 212 lb 11.937 oz Body Mass Index (BMI) 41.5 Finger Stick Blood Glucose 187 Intake and Output for Last 24 Hours 02/09/19 02/10/19 02/11/19 23:59 23:59 23:59 Intake Total 1835.00 / 1835.00 1024.5 / 1174.5 1270 / 1270 Output Total 1650 / 1650 1150 / 1400 300 / 300 Balance 185.00 / 185.00 -125.5 / -225.5 970 / 970 General: Alert, Oriented x3, Cooperative, - - Minimally short of breath. HEENT: Atraumatic, PERRLA, EOMI, Normocephalic Oral: Moist Mucosa, No Gingival or Mucosal Lesions/ Ulcerations Neck: Supple, No JVD, Negative Carotid Bruits, Trachea Midline, Thyroid Normal Size and Texture Lungs: No rhonchi, No rales, Diminished, Wheezes, - - Decreased breath sounds bilateral, end expiratory wheezes. Cardiovascular: Regular rate, Regular Rhythm, Normal S1, Normal S2, PMI Normal Abdomen: Bowel Sounds Present, Soft, Non Tender, Non-Distended, No Hepato-splenomegaly, Obese Extremities: No clubbing, No cyanosis, Edema - Trace edema. Skin: No rashes, Ulcer/ Wound Lymphatic: No Cervical, Supraclavicular, or Inguinal Adenopathy Neurological: Cranial nerves II-XII grossly intact, Neuro grossly intact Psych/Mental Status: Normal Affect, Appropriate, Alert and oriented to time, place, person, mood and affect Microbiology Past 72 Hours 02/06/19 21:00 Blood Culture (Wb) - Left Wrist Blood Culture - Preliminary No growth in 48 hours. 02/06/19 21:30 Blood Culture (Wb) - Left Hand Blood Culture - Preliminary No growth in 48 hours. 02/06/19 21:10 Urine Catheter - Catheter Urine Culture - Final Klebsiella pneumoniae sp pneum Laboratory Results 02/11/19 01:26: WBC 8.2, RBC 4.45, Hgb 12.1, Hct 39.9, MCV 89.7, MCH 27.2, MCHC 30.3 L, RDW Std Deviation 51.8 H, RDW Coeff of Carissa 15.8 H, Plt Count 150, MPV 11.2, Immature Gran % (Auto) 1.500 H, Neut % (Auto) 75.3 H, Lymph % (Auto) 15.3 L, Sully % (Auto) 5.3, Eos % (Auto) 2.2, Baso % (Auto) 0.4, Absolute Neuts (auto) 6.2, Absolute Lymphs (auto) 1.25, Nucleated RBC % 0, Differential Comment SCANNED, Platelet Estimate ADEQUATE, Plt Morphology Comment CLUMPED 02/11/19 05:04: WBC 8.1, RBC 3.99 L, Hgb 10.7 L, Hct 35.8 L, MCV 89.7, MCH 26.8 L, MCHC 29.9 L, RDW Std Deviation 52.3 H, RDW Coeff of Carissa 15.9 H, Plt Count 219, MPV 10.2, Immature Gran % (Auto) 0.900, Neut % (Auto) 76.4 H, Lymph % (Auto) 15.0 L, Sully % (Auto) 5.0, Eos % (Auto) 2.6, Baso % (Auto) 0.1, Absolute Neuts (auto) 6.2, Absolute Lymphs (auto) 1.22, Nucleated RBC % 0 02/11/19 05:04: Sodium 141, Potassium 3.8, Chloride 101, Carbon Dioxide 34.0 H, Anion Gap 6, BUN 36 H, Creatinine 1.21 H, Estim Creat Clear Calc 28.86, Est GFR (MDRD) Af Amer 56 L, Est GFR (MDRD) Non-Af 46 L, BUN/Creatinine Ratio 29.8 H, Glucose 97, Calcium 8.6 Current Medications Acetaminophen (Tylenol) 650 mg PO Q6H PRN PRN PRN Reason: Pain Score 1-10/Temp > 100.7 F Last Admin: 02/10/19 13:47 Dose: 650 mg Documented by: Albuterol Sulfate (Ventolin Aerosols) 2.5 mg INHALATION Q2H PRN PRN PRN Reason: Shortness of Breath/Wheezing Last Admin: 02/08/19 17:29 Dose: 2.5 mg Documented by: Albuterol/Ipratropium (Duoneb) 3 ml INHALATION Q4HWA.RT [facility] Last Admin: 02/11/19 08:05 Dose: Not Given Documented by: Amiodarone HCl (Cordarone) 200 mg PO DAILY [facility] Last Admin: 02/10/19 10:05 Dose: 200 mg Documented by: Amlodipine Besylate (Norvasc) 2.5 mg PO DAILY [facility] Last Admin: 02/10/19 10:12 Dose: 2.5 mg Documented by: Apixaban (Eliquis) 2.5 mg PO BID [facility] Last Admin: 02/11/19 09:03 Dose: 2.5 mg Documented by: Benzonatate (Tessalon Perle) 200 mg PO TID PRN PRN PRN Reason: COUGH Last Admin: 02/09/19 09:25 Dose: 200 mg Documented by: Calamine/Phenol (Calmoseptine Ointment) 1 applic TOPICAL BID [facility]; Protocol Last Admin: 02/10/19 22:09 Dose: 1 applicatio Documented by: Diphenhydramine HCl (Benadryl) 25 mg PO TID PRN PRN PRN Reason: ITCHING Donepezil HCl (Aricept) 5 mg PO QHS [facility] Last Admin: 02/10/19 22:06 Dose: 5 mg Documented by: Duloxetine HCl (Cymbalta) 20 mg PO DAILY [facility] Last Admin: 02/10/19 10:05 Dose: 20 mg Documented by: Ergocalciferol (Vitamin D) 50,000 unit PO MO [facility] Last Admin: 02/08/19 09:35 Dose: 50,000 unit Documented by: Ferrous Sulfate (Ferrous Sulfate) 325 mg PO DAILYCM [facility] Last Admin: 02/11/19 09:01 Dose: 325 mg Documented by: Furosemide (Lasix) 40 mg IV BID@1000,1800 [facility] Last Admin: 02/10/19 18:16 Dose: 40 mg Documented by: Gabapentin (Neurontin) 600 mg PO BID [facility] Last Admin: 02/11/19 09:02 Dose: 600 mg Documented by: Glucagon () 1 mg IM .X1 PRN PRN Reason: Hypoglycemia Guaifenesin (Mucinex) 1,200 mg PO BID [facility] Last Admin: 02/10/19 22:10 Dose: 1,200 mg Documented by: Hydralazine HCl (Apresoline) 50 mg PO TID [facility] Last Admin: 02/11/19 06:15 Dose: 50 mg Documented by: Hydrocortisone (Hytone) 1 applic RECTAL BID PRN PRN; Protocol PRN Reason: Hemorrhoids Meropenem 1 gm/ Sodium (Chloride) 120 mls @ 33 mls/hr IV Q12 [facility] Last Infusion: 02/11/19 02:30 Dose: Infused Documented by: Dextrose (Dextrose 10%-Water) 250 mls @ 999 mls/hr IV .Q16M PRN; Protocol PRN Reason: HYPOGLYCEMIA Sodium Chloride () 250 mls @ 15 mls/hr IV .[id number] PRN PRN Reason: Saline Flush Last Infusion: 02/10/19 01:23 Dose: 0 mls/hr Documented by: Sodium Chloride () 250 mls @ 15 mls/hr IV .[id number] PRN PRN Reason: Additional IVPB Infusion Magnesium Oxide (Mag-Ox 400) 400 mg PO BID [facility] Last Admin: 02/11/19 09:02 Dose: 400 mg Documented by: Melatonin (Melatonin) 3 mg PO QHS PRN PRN PRN Reason: INSOMNIA Last Admin: 02/09/19 21:18 Dose: 3 mg Documented by: Metoprolol Tartrate (Lopressor (Beta Tommy)) 50 mg PO BID [facility] Last Admin: 02/10/19 22:08 Dose: 50 mg Documented by: Morphine Sulfate () 2 - 4 mg IV Q3H PRN PRN PRN Reason: Pain Score 1-10/10 Morphine Sulfate () 2 - 4 mg IV Q3H PRN PRN PRN Reason: PAIN SCORE 1-10/10 Nutritional Formula (Lactose Free) (Glucerna Shake) 120 ml PO TIDCM [facility] Last Admin: 02/11/19 09:02 Dose: 120 ml Documented by: Nystatin (Mycostatin Powder) 1 applic TOPICAL BID [facility]; Protocol Last Admin: 02/10/19 22:11 Dose: 1 applicatio Documented by: Ondansetron HCl (Zofran) 4 mg IV Q8H PRN PRN PRN Reason: NAUSEA/VOMITING Pantoprazole Sodium (Protonix) 40 mg PO DAILY [facility] Last Admin: 02/11/19 09:02 Dose: 40 mg Documented by: Polyethylene Glycol (Miralax) 17 gm PO DAILY [facility] Potassium Chloride (K-Dur) 20 meq PO BID [facility] Last Admin: 02/11/19 09:03 Dose: 20 meq Documented by: Sodium Chloride () 10 - 40 ml IV UD PRN PRN Reason: SALINE FLUSH Last Admin: 02/10/19 18:16 Dose: 10 ml Documented by: Sodium Hypochlorite (Dakins Solution 0.25% (1/2 Strength)) 1 applic TOPICAL BID [facility]; Protocol Last Admin: 02/10/19 22:09 Dose: 1 applicatio Documented by: Medical Necessity - Tobacco Use Smoking Status: Former smoker Assessment/Plan This is a 74 years old female patient presented to the emergency because of shortness of breath and fever and she was found to have bibasilar lung infiltrate consistent with pneumonia and also found to have probable acute diastolic CHF and both are complicated by acute hypoxic respiratory failure. #1 acute community-acquired pneumonia/sepsis: Remained on IV meropenem. She has been afebrile, WBC is back to normal. Symptoms started to improve, oxygen is down to 3 L. Pneumococcal and Legionella antigen were negative. Blood culture showed no growth at 48 hours. Nasal swab for influenza a and B were negative. Respiratory panel for viruses pending. Urine culture revealed Klebsiella pneumoniae although there was no strong evidence of UTI on urinalysis. Plan to continue same treatment, wean off oxygen as tolerated, ambulate. #2 probable acute diastolic CHF: She is on IV Lasix as well as metoprolol. Symptoms started to improve. Kidney function been stable. Potassium replaced and corrected. EKG without acute ischemic changes. Troponin is negative. 2D echocardiogram revealed ejection fraction of 65%. Plan to continue IV diuresis. #3 acute hypoxic respiratory failure: Secondary to #1 and #2. Patient mentioned that she never been on oxygen at home. Oxygen, has been decreasing, she is down to 3 L with 100% pulse ox. Plan as above. #4 CAD status post CABG: Stable, continue Eliquis, metoprolol. #5 paroxysmal atrial fibrillation: Rate is controlled, continue amiodarone and metoprolol for rate control, continue Eliquis for anticoagulation. #6 obstructive sleep apnea: Noncompliant, has been refusing BiPAP during this hospital stay. Pulmonology recommended nocturnal BiPAP. #7 dementia: Continue Aricept. #8 chronic bilateral lower extremity ulcers/wounds: Without evidence of acute infection. Wound care nurse consulted. #9 DVT prophylaxis: Continue Eliquis. This note was generated with [employer] dictation software. It may contain incorrect words, spelling, and punctuation that were not noted in checking the note before signing. Code Visit Inpatient E&M: 10384 Subs Hosp L2
--- NOTE | 2019-02-11 10:07 | CASEMGMT ---
Addendum entered by Digna Palumbo 02/11/19 13:44: JAGDEEP spoke with Quiana at [facility] who states pt's case went to medical review. JAGDEEP updated Quiana that physician is thinking discharge tomorrow or . Quiana states she will continue to update pt's insurance. Original Note: Social Work Note JAGDEEP faxed updated clinicals to [facility]. Plan: [facility] pending pre-cert Digna Palumbo BACKROOM ASSOCIATE, ASSISTANT DIRECTOR OF SECURITY
[2019-02-11] MEDS: Ipratropium/Albuterol Sulfate 3 ML AMPUL.NEB INHALATION ×3 (10:33→19:51)
[2019-02-11] MEDS: Menthol/Lanolin/Calamine/Znox 113 GM Tube 1 APPLIC TOPICAL ×2 (10:54→21:55)
[2019-02-11] MEDS: Nystatin Powder 15gm Bottle 1 APPLIC TOPICAL ×2 (10:55→21:54)
[2019-02-11] MEDS: 0.9% Saline Lock 10 ML Syringe IV ×3 (10:57→21:53)
[2019-02-11] MEDS: Amiodarone 200 MG Tablet PO (10:58)
[2019-02-11] MEDS: DAKIN'S SOL HALF STRENGTH (=0.25%) 1 APPLIC TOPICAL ×2 (10:58→21:55)
[2019-02-11] MEDS: Furosemide 40 MG/4 ML Vial IV ×2 (10:58→18:01)
[2019-02-11] MEDS: Metoprolol Tartrate 50 MG Tablet PO ×2 (10:58→21:53)
[2019-02-11] MEDS: guaiFENesin 1,200 MG Tablet 1200 MG PO ×2 (10:58→21:54)
[2019-02-11] MEDS: DULoxetine Hcl 20 MG Capsule PO (10:59)
[2019-02-11] MEDS: amLODIPine 2.5 MG Tablet PO (11:02)
--- NOTE | 2019-02-11 15:01 | PN_ITS ---
Subjective: Patient did okay overnight. Patient has been using BiPAP and oxygenation is improving. Patient was able to tolerate 3 L earlier in the day. No hypotension or fevers been reported. - Physical Exam Vitals/I&O's: Vital Signs Temp Pulse Resp BP Pulse Ox 36.6 C 69 21 H 120/54 L 94 02/11/19 13:37 02/11/19 14:48 02/11/19 14:48 02/11/19 13:40 02/11/19 14:48 Oxygen Flow Rate (L/min) 3 Oxygen Delivery Method Bi-pap Weight: 96.5 kg Body Mass Index (BMI) 41.5 Finger Stick Blood Glucose 187 Intake and Output for Last 24 Hours 02/09/19 02/10/19 02/11/19 23:59 23:59 23:59 Intake Total 1835.00 / 1835.00 1024.5 / 1174.5 1520 / 1520 Output Total 1650 / 1650 1150 / 1400 450 / 450 Balance 185.00 / 185.00 -125.5 / -225.5 1070 / 1070 General: Alert, Oriented x3, Cooperative, No apparent distress, - - Morbidly obese. No conversational dyspnea. HEENT: Atraumatic, PERRLA, EOMI, Normocephalic, - - No scleral icterus or injection noted Oral: Moist Mucosa, No Gingival or Mucosal Lesions/ Ulcerations Neck: Supple, No JVD, No Nodes, Trachea Midline Lungs: No rhonchi, No wheeze, No rales, Diminished, - - Symmetric expansion. No dullness to percussion. Cardiovascular: Regular rate, Regular Rhythm, Normal S1, Normal S2, No murmurs, No rub noted, No Gallop Abdomen: Bowel Sounds Present, Soft, Non Tender, Non-Distended, Obese Extremities: No clubbing, No cyanosis, - - Lower extremity [place] wraps Skin: No rashes, No breakdown Musculoskeletal: No Tenderness to Palpation of Joints or Extremities Lymphatic: No Cervical, Supraclavicular, or Inguinal Adenopathy Neurological: Cranial nerves II-XII grossly intact, Neuro grossly intact, Motor Exam 5/5 strength throughout Psych/Mental Status: Alert and oriented to time, place, person, mood and affect Microbiology Past 72 Hours 02/06/19 21:00 Blood Culture (Wb) - Left Wrist Blood Culture - Preliminary No growth in 48 hours. 02/06/19 21:30 Blood Culture (Wb) - Left Hand Blood Culture - Preliminary No growth in 48 hours. 02/06/19 21:10 Urine Catheter - Catheter Urine Culture - Final Klebsiella pneumoniae sp pneum Laboratory Results 02/11/19 01:26: WBC 8.2, RBC 4.45, Hgb 12.1, Hct 39.9, MCV 89.7, MCH 27.2, MCHC 30.3 L, RDW Std Deviation 51.8 H, RDW Coeff of Carissa 15.8 H, Plt Count 150, MPV 11.2, Immature Gran % (Auto) 1.500 H, Neut % (Auto) 75.3 H, Lymph % (Auto) 15.3 L, [place] % (Auto) 5.3, Eos % (Auto) 2.2, Baso % (Auto) 0.4, Absolute Neuts (auto) 6.2, Absolute Lymphs (auto) 1.25, Nucleated RBC % 0, Differential Comment SCANNED, Platelet Estimate ADEQUATE, Plt Morphology Comment CLUMPED 02/11/19 05:04: WBC 8.1, RBC 3.99 L, Hgb 10.7 L, Hct 35.8 L, MCV 89.7, MCH 26.8 L, MCHC 29.9 L, RDW Std Deviation 52.3 H, RDW Coeff of Carissa 15.9 H, Plt Count 219, MPV 10.2, Immature Gran % (Auto) 0.900, Neut % (Auto) 76.4 H, Lymph % (Auto) 15.0 L, [place] % (Auto) 5.0, Eos % (Auto) 2.6, Baso % (Auto) 0.1, Absolute Neuts (auto) 6.2, Absolute Lymphs (auto) 1.22, Nucleated RBC % 0 02/11/19 05:04: Sodium 141, Potassium 3.8, Chloride 101, Carbon Dioxide 34.0 H, Anion Gap 6, BUN 36 H, Creatinine 1.21 H, Estim Creat Clear Calc 28.86, Est GFR (MDRD) Af Amer 56 L, Est GFR (MDRD) Non-Af 46 L, BUN/Creatinine Ratio 29.8 H, Glucose 97, Calcium 8.6 Current Medications Acetaminophen (Tylenol) 650 mg PO Q6H PRN PRN PRN Reason: Pain Score 1-10/Temp > 100.7 F Last Admin: 02/10/19 13:47 Dose: 650 mg Documented by: Albuterol Sulfate (Ventolin Aerosols) 2.5 mg INHALATION Q2H PRN PRN PRN Reason: Shortness of Breath/Wheezing Last Admin: 02/08/19 17:29 Dose: 2.5 mg Documented by: Albuterol/Ipratropium (Duoneb) 3 ml INHALATION Q4HWA.RT [facility] Last Admin: 02/11/19 14:48 Dose: 3 ml Documented by: Amiodarone HCl (Cordarone) 200 mg PO DAILY [facility] Last Admin: 02/11/19 10:58 Dose: 200 mg Documented by: Amlodipine Besylate (Norvasc) 2.5 mg PO DAILY [facility] Last Admin: 02/11/19 11:02 Dose: 2.5 mg Documented by: Apixaban (Eliquis) 2.5 mg PO BID [facility] Last Admin: 02/11/19 09:03 Dose: 2.5 mg Documented by: Benzonatate (Tessalon Perle) 200 mg PO TID PRN PRN PRN Reason: COUGH Last Admin: 02/09/19 09:25 Dose: 200 mg Documented by: Calamine/Phenol (Calmoseptine Ointment) 1 applic TOPICAL BID [facility]; Protocol Last Admin: 02/11/19 10:54 Dose: 1 applicatio Documented by: Diphenhydramine HCl (Benadryl) 25 mg PO TID PRN PRN PRN Reason: ITCHING Donepezil HCl (Aricept) 5 mg PO QHS [facility] Last Admin: 02/10/19 22:06 Dose: 5 mg Documented by: Duloxetine HCl (Cymbalta) 20 mg PO DAILY [facility] Last Admin: 02/11/19 10:59 Dose: 20 mg Documented by: Ergocalciferol (Vitamin D) 50,000 unit PO MO [facility] Last Admin: 02/08/19 09:35 Dose: 50,000 unit Documented by: Ferrous Sulfate (Ferrous Sulfate) 325 mg PO DAILYCM [facility] Last Admin: 02/11/19 09:01 Dose: 325 mg Documented by: Furosemide (Lasix) 40 mg IV BID@1000,1800 [facility] Last Admin: 02/11/19 10:58 Dose: 40 mg Documented by: Gabapentin (Neurontin) 600 mg PO BID [facility] Last Admin: 02/11/19 09:02 Dose: 600 mg Documented by: Glucagon () 1 mg IM .X1 PRN PRN Reason: Hypoglycemia Guaifenesin (Mucinex) 1,200 mg PO BID [facility] Last Admin: 02/11/19 10:58 Dose: 1,200 mg Documented by: Hydralazine HCl (Apresoline) 50 mg PO TID [facility] Last Admin: 02/11/19 13:40 Dose: 50 mg Documented by: Hydrocortisone (Hytone) 1 applic RECTAL BID PRN PRN; Protocol PRN Reason: Hemorrhoids Meropenem 1 gm/ Sodium (Chloride) 120 mls @ 33 mls/hr IV Q12 [facility] Last Admin: 02/11/19 11:02 Dose: 33 mls/hr Documented by: Dextrose (Dextrose 10%-Water) 250 mls @ 999 mls/hr IV .Q16M PRN; Protocol PRN Reason: HYPOGLYCEMIA Sodium Chloride () 250 mls @ 15 mls/hr IV .[id number] PRN PRN Reason: Saline Flush Last Infusion: 02/10/19 01:23 Dose: 0 mls/hr Documented by: Sodium Chloride () 250 mls @ 15 mls/hr IV .[id number] PRN PRN Reason: Additional IVPB Infusion Magnesium Oxide (Mag-Ox 400) 400 mg PO BID [facility] Last Admin: 02/11/19 09:02 Dose: 400 mg Documented by: Melatonin (Melatonin) 3 mg PO QHS PRN PRN PRN Reason: INSOMNIA Last Admin: 02/09/19 21:18 Dose: 3 mg Documented by: Metoprolol Tartrate (Lopressor (Beta Tommy)) 50 mg PO BID [facility] Last Admin: 02/11/19 10:58 Dose: 50 mg Documented by: Morphine Sulfate () 2 - 4 mg IV Q3H PRN PRN PRN Reason: Pain Score 1-10/10 Morphine Sulfate () 2 - 4 mg IV Q3H PRN PRN PRN Reason: PAIN SCORE 1-10/10 Nutritional Formula (Lactose Free) (Glucerna Shake) 120 ml PO TIDCM [facility] Last Admin: 02/11/19 13:40 Dose: Not Given Documented by: Nystatin (Mycostatin Powder) 1 applic TOPICAL BID [facility]; Protocol Last Admin: 02/11/19 10:55 Dose: 1 applicatio Documented by: Ondansetron HCl (Zofran) 4 mg IV Q8H PRN PRN PRN Reason: NAUSEA/VOMITING Pantoprazole Sodium (Protonix) 40 mg PO DAILY [facility] Last Admin: 02/11/19 09:02 Dose: 40 mg Documented by: Polyethylene Glycol (Miralax) 17 gm PO DAILY [facility] Last Admin: 02/11/19 10:59 Dose: Not Given Documented by: Potassium Chloride (K-Dur) 20 meq PO BID [facility] Last Admin: 02/11/19 09:03 Dose: 20 meq Documented by: Sodium Chloride () 10 - 40 ml IV UD PRN PRN Reason: SALINE FLUSH Last Admin: 02/11/19 10:57 Dose: 20 ml Documented by: Sodium Hypochlorite (Dakins Solution 0.25% (1/2 Strength)) 1 applic TOPICAL BID [facility]; Protocol Last Admin: 02/11/19 10:58 Dose: 1 applicatio Documented by: Clinical Impression(s) from Imaging Studies Chest X-Ray 02/06/19 21:45 IMPRESSION: New bibasilar pulmonary infiltrates, potential pneumonic process. Stable cardiomegaly status post prior midline sternotomy. Electronically Signed: Cecilia Marsh MD at 22:08 EST , Service support , Chest X-Ray 02/08/19 04:50 IMPRESSION: Decrease in bilateral infiltrates. at 0800 Reported and signed by: Sheri Hernandez MD Electronically Signed: Sheri Hernandez MD at 8:00 EST Tel , Service support , Chest X-Ray 02/09/19 12:06 IMPRESSION: Progressing right upper lobe and right basilar alveolar disease. Electronically Signed: Ney Ontiveros MD at 19:24 EST Tel , Service support , Medical Necessity - Tobacco Use Smoking Status: Former smoker Assessment/Plan RECOMMENDATIONS: 1. Complete 7-day treatment course of antibiotics. 2. May need transitioned over to p.o. Lasix 3. Continue lower extremity wound care 4. Wean supplemental oxygen to maintain saturations at or above 90%. 5. Encourage incentive spirometer use and mobilize patient as tolerated. 6. Encourage BiPAP therapy with naps and nightly. 7. Perform walking oximetry study prior to consideration for discharge home. 8. Outpatient pulmonary follow-up within 2 weeks of discharge is warranted. IMPRESSIONS: 1. Acute hypoxemic respiratory insufficiency secondary to possible community-acquired pneumonia versus heart failure exacerbation Patient does have constitutional symptoms consistent with community- acquired pneumonia. Patient continues on meropenem and likely can be treated with a total of 7 days of antibiotics. Patient did have an elevated BNP, but is appearing clinically euvolemic. Laboratory data suggest patient is tolerating diuresis for now. Patient did not have evidence of obstructive lung disease in December, but this can be reevaluated as an outpatient. CHF could be a potential confounder. Continue to encourage mobilization, incentive spirometer use and pulmonary toileting as tolerated. Patient will need a walking oximetry prior to discharge. BiPAP may also help with basilar recruitment, but patient appears to be resistant. 2. Obstructive sleep apnea The patient has a known history of LAURITA and is currently noncompliant with the use of nocturnal Pap therapy. However, while admitted to the hospital, the patient will be maintained on nocturnal BiPAP therapy with a pressure support of 12/6 centimeters of water. Patient appears to be tolerating this as an inpatient, so may be able to be reinitiated as an outpatient. 3. Chronic lower extremity wounds/diabetes mellitus/obesity/hypertension/paroxysmal atrial fibrillation/GERD Complicates care, management, recovery and prognosis. Continue home medications per outpatient regimen. Code Visit Inpatient E&M: 54503 [facility] Hosp L2
[2019-02-11] MEDS: Donepezil HCl 5 MG Tablet PO (21:54)
[2019-02-12] VITALS (24 sets, daily range): BP systolic 113–143; BP diastolic 47–93; PULSE 64–85; RESP 12–23; TEMP 36.4–37; O2SAT 95–100
--- NOTE | 2019-02-12 00:43 | CPS ---
pt asked to go on bipap -pt states wants to drink ice water first.-nurse aware
--- NOTE | 2019-02-12 02:36 | NURSING ---
Pt refuses BIPAP.
--- NOTE | 2019-02-12 02:39 | NURSING ---
Pt agreed to BIPAP
[2019-02-12] MEDS: Albuterol 2.5 MG/3 ML VIAL.NEB. INHALATION (05:31)
[2019-02-12] MEDS: hydrALAZINE 50 MG Tablet PO ×3 (06:06→21:57)
[2019-02-12] MEDS: Ipratropium/Albuterol Sulfate 3 ML AMPUL.NEB INHALATION ×3 (07:00→18:44)
[2019-02-12] MEDS: DULoxetine Hcl 20 MG Capsule PO (08:44)
[2019-02-12] MEDS: amLODIPine 2.5 MG Tablet PO (08:44)
[2019-02-12] MEDS: Pantoprazole Sodium 40 MG Tablet PO (08:44)
[2019-02-12] MEDS: Gabapentin 600 MG Tablet PO ×2 (08:45→21:57)
[2019-02-12] MEDS: Ferrous Sulfate 325 MG Tablet PO (08:45)
[2019-02-12] MEDS: Furosemide 40 MG Tablet PO ×2 (08:45→17:07)
[2019-02-12] MEDS: Magnesium Oxide 400 MG Tablet PO ×2 (08:45→21:57)
[2019-02-12] MEDS: guaiFENesin 1,200 MG Tablet 1200 MG PO ×2 (08:45→21:58)
[2019-02-12] MEDS: Metoprolol Tartrate 50 MG Tablet PO ×2 (08:45→21:57)
[2019-02-12] MEDS: Nystatin Powder 15gm Bottle 1 APPLIC TOPICAL ×2 (08:49→21:58)
[2019-02-12] MEDS: Amiodarone 200 MG Tablet PO (08:49)
[2019-02-12] MEDS: Glucerna Shake 120 ML LIQUID PO ×3 (08:49→17:07)
[2019-02-12] MEDS: APIXABAN 2.5 MG TABLET PO ×2 (08:49→21:58)
[2019-02-12] MEDS: DAKIN'S SOL HALF STRENGTH (=0.25%) 1 APPLIC TOPICAL ×2 (08:53→22:11)
[2019-02-12] MEDS: Menthol/Lanolin/Calamine/Znox 113 GM Tube 1 APPLIC TOPICAL ×2 (08:54→21:58)
--- NOTE | 2019-02-12 09:02 | PCM.PROGNOTE ---
Subjective: Chief complaint: Follow-up after admission for acute hypoxic respiratory failure secondary to community-acquired pneumonia and probable CHF exacerbation. Patient seen and examined. No acute events overnight. This morning, she complained of increasing shortness of breath compared to yesterday, still having cough with minimal sputum. She is complaining of wheezing. She mentioned that she is feeling worse than yesterday. Denies fever chills. She has been afebrile, blood pressure and heart rate are stable, pulse ox is 96% on 3 L. - Physical Exam Vitals/I&O's: Vital Signs Temp Pulse Resp BP Pulse Ox 97.5 F L 65 20 H 129/47 H 98 02/12/19 08:55 02/12/19 08:55 02/12/19 08:55 02/12/19 08:55 02/12/19 08:55 Oxygen Flow Rate (L/min) 3 Oxygen Delivery Method Nasal Cannula Weight: 212 lb 11.937 oz Body Mass Index (BMI) 41.5 Finger Stick Blood Glucose 187 Intake and Output for Last 24 Hours 02/10/19 02/11/19 02/12/19 23:59 23:59 23:59 Intake Total 1024.5 / 1174.5 1989 633.5 / 633.5 Output Total 1150 / 1400 950 / 950 1800 / 1800 Balance -125.5 / -225.5 1040 / 1040 -1166.5 / -1166.5 General: Alert, Oriented x3, Cooperative, - - Moderately short of breath. HEENT: Atraumatic, PERRLA, EOMI, Normocephalic Oral: Moist Mucosa, No Gingival or Mucosal Lesions/ Ulcerations Neck: Supple, No JVD, Negative Carotid Bruits, Trachea Midline, Thyroid Normal Size and Texture Lungs: No rales, Diminished, Rhonchi, Short of Breath, - - Decreased breath sounds bilateral, bilateral expiratory wheezes, more on the left upper zone. Cardiovascular: Regular rate, Regular Rhythm, Normal S1, Normal S2, PMI Normal Abdomen: Bowel Sounds Present, Soft, Non Tender, Non-Distended, No Hepato-splenomegaly, Obese Extremities: No clubbing, No cyanosis, Edema Skin: No rashes, No breakdown Lymphatic: No Cervical, Supraclavicular, or Inguinal Adenopathy Neurological: Cranial nerves II-XII grossly intact, Neuro grossly intact Psych/Mental Status: Normal Affect, Appropriate, Alert and oriented to time, place, person, mood and affect Microbiology Past 72 Hours 02/06/19 21:00 Blood Culture (Wb) - Left Wrist Blood Culture - Final No growth in 5 days. 02/06/19 21:30 Blood Culture (Wb) - Left Hand Blood Culture - Final No growth in 5 days. Current Medications Acetaminophen (Tylenol) 650 mg PO Q6H PRN PRN PRN Reason: Pain Score 1-10/Temp > 100.7 F Last Admin: 02/10/19 13:47 Dose: 650 mg Documented by: Albuterol Sulfate (Ventolin Aerosols) 2.5 mg INHALATION Q2H PRN PRN PRN Reason: Shortness of Breath/Wheezing Last Admin: 02/12/19 05:31 Dose: 2.5 mg Documented by: Albuterol/Ipratropium (Duoneb) 3 ml INHALATION Q4HWA.RT [facility] Last Admin: 02/12/19 07:00 Dose: 3 ml Documented by: Amiodarone HCl (Cordarone) 200 mg PO DAILY [facility] [place] Last Admin: 02/12/19 08:49 Dose: 200 mg Documented by: Amlodipine Besylate (Norvasc) 2.5 mg PO DAILY [facility] [place] Last Admin: 02/12/19 08:44 Dose: 2.5 mg Documented by: Apixaban (Eliquis) 2.5 mg PO BID [facility] [place] Last Admin: 02/12/19 08:49 Dose: 2.5 mg Documented by: Benzonatate (Tessalon Perle) 200 mg PO TID PRN PRN PRN Reason: COUGH Last Admin: 02/09/19 09:25 Dose: 200 mg Documented by: Calamine/Phenol (Calmoseptine Ointment) 1 applic TOPICAL BID [facility] [place]; Protocol Last Admin: 02/12/19 08:54 Dose: 1 applicatio Documented by: Diphenhydramine HCl (Benadryl) 25 mg PO TID PRN PRN PRN Reason: ITCHING Donepezil HCl (Aricept) 5 mg PO QHS [facility] [place] Last Admin: 02/11/19 21:54 Dose: 5 mg Documented by: Duloxetine HCl (Cymbalta) 20 mg PO DAILY [facility] [place] Last Admin: 02/12/19 08:44 Dose: 20 mg Documented by: Ergocalciferol (Vitamin D) 50,000 unit PO MO [facility] [place] Last Admin: 02/08/19 09:35 Dose: 50,000 unit Documented by: Ferrous Sulfate (Ferrous Sulfate) 325 mg PO DAILYCM [facility] [place] Last Admin: 02/12/19 08:45 Dose: 325 mg Documented by: Furosemide (Lasix) 40 mg PO BID@1000,1800 [facility] [place] Last Admin: 02/12/19 08:45 Dose: 40 mg Documented by: Gabapentin (Neurontin) 600 mg PO BID [facility] [place] Last Admin: 02/12/19 08:45 Dose: 600 mg Documented by: Glucagon () 1 mg IM .X1 PRN PRN Reason: Hypoglycemia Guaifenesin (Mucinex) 1,200 mg PO BID [facility] [place] Last Admin: 02/12/19 08:45 Dose: 1,200 mg Documented by: Hydralazine HCl (Apresoline) 50 mg PO TID [facility] [place] Last Admin: 02/12/19 06:06 Dose: 50 mg Documented by: Hydrocortisone (Hytone) 1 applic RECTAL BID PRN PRN; Protocol PRN Reason: Hemorrhoids Meropenem 1 gm/ Sodium (Chloride) 120 mls @ 33 mls/hr IV Q12 [facility] [place] Last Infusion: 02/12/19 01:41 Dose: Infused Documented by: Dextrose (Dextrose 10%-Water) 250 mls @ 999 mls/hr IV .Q16M PRN; Protocol PRN Reason: HYPOGLYCEMIA Sodium Chloride () 250 mls @ 15 mls/hr IV .[id number] PRN PRN Reason: Saline Flush Last Infusion: 02/12/19 02:37 Dose: 0 mls/hr Documented by: Sodium Chloride () 250 mls @ 15 mls/hr IV .[id number] PRN PRN Reason: Additional IVPB Infusion Magnesium Oxide (Mag-Ox 400) 400 mg PO BID [facility] [place] Last Admin: 02/12/19 08:45 Dose: 400 mg Documented by: Melatonin (Melatonin) 3 mg PO QHS PRN PRN PRN Reason: INSOMNIA Last Admin: 02/09/19 21:18 Dose: 3 mg Documented by: Metoprolol Tartrate (Lopressor (Beta Tommy)) 50 mg PO BID [facility] [place] Last Admin: 02/12/19 08:45 Dose: 50 mg Documented by: Morphine Sulfate () 2 - 4 mg IV Q3H PRN PRN PRN Reason: Pain Score 1-10/10 Morphine Sulfate () 2 - 4 mg IV Q3H PRN PRN PRN Reason: PAIN SCORE 1-10/10 Nutritional Formula (Lactose Free) (Glucerna Shake) 120 ml PO TIDCM [facility] [place] Last Admin: 02/12/19 08:49 Dose: 120 ml Documented by: Nystatin (Mycostatin Powder) 1 applic TOPICAL BID [facility] [place]; Protocol Last Admin: 02/12/19 08:49 Dose: 1 applicatio Documented by: Ondansetron HCl (Zofran) 4 mg IV Q8H PRN PRN PRN Reason: NAUSEA/VOMITING Pantoprazole Sodium (Protonix) 40 mg PO DAILY [facility] [place] Last Admin: 02/12/19 08:44 Dose: 40 mg Documented by: Polyethylene Glycol (Miralax) 17 gm PO DAILY [facility] Last Admin: 02/12/19 08:46 Dose: Not Given Documented by: Potassium Chloride (K-Dur) 20 meq PO BID [facility] [place] Last Admin: 02/12/19 08:45 Dose: 20 meq Documented by: Sodium Chloride () 10 - 40 ml IV UD PRN PRN Reason: SALINE FLUSH Last Admin: 02/11/19 21:53 Dose: 10 ml Documented by: Sodium Hypochlorite (Dakins Solution 0.25% (1/2 Strength)) 1 applic TOPICAL BID [facility]; Protocol Last Admin: 02/12/19 08:53 Dose: 1 applicatio Documented by: Medical Necessity - Tobacco Use Smoking Status: Former smoker Assessment/Plan This is a 74 years old female patient presented to the emergency because of shortness of breath and fever and she was found to have bibasilar lung infiltrate consistent with pneumonia and also found to have probable acute diastolic CHF and both are complicated by acute hypoxic respiratory failure. #1 acute community-acquired pneumonia/sepsis: She is on day 6 of IV meropenem. She has been afebrile, WBC is back to normal. Today, she is feeling worse, more short of breath than yesterday. Pneumococcal and Legionella antigen were negative. Blood culture showed no growth in 5 days. Nasal swab for influenza a and B were negative. Urine culture revealed Klebsiella pneumoniae although there was no strong evidence of UTI on urinalysis. Plan: Chest x-ray, continue other treatments. #2 probable acute diastolic CHF: She is on IV Lasix as well as metoprolol. Today, she is feeling worse than yesterday, more short of breath. Kidney function been stable. Potassium replaced and corrected. EKG without acute ischemic changes. Troponin is negative. 2D echocardiogram revealed ejection fraction of 65%. Plan to change Lasix to p.o. #3 acute hypoxic respiratory failure: Secondary to #1 and #2. Patient mentioned that she never been on oxygen at home. Today, oxygen requirement slightly increased to 3 L. She was on 2 L yesterday. Plan as above. #4 CAD status post CABG: Stable, continue Eliquis, metoprolol. #5 paroxysmal atrial fibrillation: Rate is controlled, continue amiodarone and metoprolol for rate control, continue Eliquis for anticoagulation. #6 obstructive sleep apnea: Noncompliant, has been refusing BiPAP during this hospital stay. Pulmonology recommended nocturnal BiPAP. #7 dementia: Continue Aricept. #8 chronic bilateral lower extremity ulcers/wounds: Without evidence of acute infection. Wound care nurse consulted. #9 DVT prophylaxis: Continue Eliquis. This note was generated with [employer] dictation software. It may contain incorrect words, spelling, and punctuation that were not noted in checking the note before signing. Code Visit Inpatient E&M: 87090 [facility] Hosp L2
[2019-02-12] MEDS: 0.9% Saline Lock 10 ML Syringe IV ×2 (09:15→21:58)
--- NOTE | 2019-02-12 09:50 | RAD_ITS ---
STUDY: X-RAY CHEST REASON FOR EXAM: Female, 74 years old. SOB, SEPSIS, CONGESTION TECHNIQUE: Single AP portable view of the chest. COMPARISON: 02/09/2019 FINDINGS: Stable alveolar opacifications in both lung gallegos without significant change since the previous study. There is no demonstrated pleural abnormality. Sternal cerclage wires and vascular clips are present from a prior sternotomy and coronary artery bypass graft procedure (CABG). Normal mediastinum and alee. Normal visualized pulmonary arteries. There is atherosclerotic calcification of the aortic arch with tortuosity. There are diffuse degenerative changes of the visualized thoracic spine. Normal visualized ribs, clavicles, and shoulders. There is no demonstrated abnormality of the visualized soft tissue structures of the upper abdomen. RAD/Chest 1 View (Portable) IMPRESSION: No interval change Electronically Signed: Zan Quezada MD at 10:10 EST , Service support ,
--- NOTE | 2019-02-12 10:46 | CASEMGMT ---
Addendum entered by Digna Palumbo 02/12/19 14:18: JAGDEEP received message from Quiana at [facility] stating pt's insurance is requesting updated clinicals. No PT/OT notes are available from today. JAGDEEP did fax over progress note, wound care note, oxygen requirements and PT/OT notes from yesterday. Original Note: Social Work Note Physician states pt is not medically cleared for discharge today hopefully tomorrow. JAGDEEP updated physician that pt will need pre-cert and pre-cert has been sent to medical review. JAGDEEP asked physician about IV antibiotics at discharge. Physician states pt will not need IV Antibiotics at discharge, will likely need oxygen but not IV antibiotics. Pt is also getting dressing changes twice daily. JAGDEEP placed a call to [facility] and left message for Quiana asking about pre-cert and updating Quiana that pt will not be on IV antibiotics at discharge but will be on oxygen and twice daily dressing changes. SW to fax updated clinicals. Plan: [facility] pending pre-cert Digna Palumbo [employer]
[2019-02-12] MEDS: DiphenhydrAMINE 25 MG Capsule PO ×2 (14:18→22:38)
--- NOTE | 2019-02-12 14:22 | PCM.PN.PUL ---
Subjective: Patient did okay overnight. Patient is reporting subjective improvement in overall condition, but still does not feel right. Patient did not make it out of bed yesterday, but did comply with BiPAP overnight. Patient denies any chest pain and feels that her legs are improving. - Physical Exam Vitals/I&O's: Vital Signs Temp Pulse Resp BP Pulse Ox 36.6 C 69 20 H 119/56 L 99 02/12/19 14:00 02/12/19 14:00 02/12/19 14:00 02/12/19 14:00 02/12/19 14:00 Oxygen Flow Rate (L/min) 3 Oxygen Delivery Method Nasal Cannula Weight: 96.5 kg Body Mass Index (BMI) 41.5 Finger Stick Blood Glucose 187 Intake and Output for Last 24 Hours 02/10/19 02/11/19 02/12/19 23:59 23:59 23:59 Intake Total 1024.5 / 1174.5 1989 753.5 / 753.5 Output Total 1150 / 1400 950 / 950 1999 / 1999 Balance -125.5 / -225.5 1040 / 1040 -1246.5 / -1246.5 General: Alert, Oriented x3, Cooperative, No apparent distress, Well developed, Well nourished, - - Morbidly obese. More pleasant today. HEENT: Atraumatic, PERRLA, EOMI, Normocephalic, - - No scleral icterus or injection noted Oral: Moist Mucosa, No Gingival or Mucosal Lesions/ Ulcerations Neck: Supple, No JVD, No Nodes, Trachea Midline Lungs: No rhonchi, No wheeze, No rales, Diminished, - - Fair effort. Cardiovascular: Normal S1, Normal S2, No murmurs, Irregular Rate, No rub noted, No Gallop Abdomen: Bowel Sounds Present, Soft, Non Tender, Non-Distended, Obese Extremities: No clubbing, No cyanosis, Edema - Wrapped but significantly improved Skin: - - No significant change Musculoskeletal: No Tenderness to Palpation of Joints or Extremities Lymphatic: No Cervical, Supraclavicular, or Inguinal Adenopathy Neurological: Cranial nerves II-XII grossly intact, Neuro grossly intact, Motor Exam 5/5 strength throughout Psych/Mental Status: Alert and oriented to time, place, person, mood and affect Microbiology Past 72 Hours 02/06/19 21:10 Urine Catheter - Catheter Urine Culture - Final Klebsiella pneumoniae sp pneum 02/06/19 21:00 Blood Culture (Wb) - Left Wrist Blood Culture - Final No growth in 5 days. 02/06/19 21:30 Blood Culture (Wb) - Left Hand Blood Culture - Final No growth in 5 days. Current Medications Acetaminophen (Tylenol) 650 mg PO Q6H PRN PRN PRN Reason: Pain Score 1-10/Temp > 100.7 F Last Admin: 02/10/19 13:47 Dose: 650 mg Documented by: Albuterol Sulfate (Ventolin Aerosols) 2.5 mg INHALATION Q2H PRN PRN PRN Reason: Shortness of Breath/Wheezing Last Admin: 02/12/19 05:31 Dose: 2.5 mg Documented by: Albuterol/Ipratropium (Duoneb) 3 ml INHALATION Q4HWA.RT [facility] Last Admin: 02/12/19 11:00 Dose: Not Given Documented by: Amiodarone HCl (Cordarone) 200 mg PO DAILY [facility] Last Admin: 02/12/19 08:49 Dose: 200 mg Documented by: Amlodipine Besylate (Norvasc) 2.5 mg PO DAILY [facility] Last Admin: 02/12/19 08:44 Dose: 2.5 mg Documented by: Apixaban (Eliquis) 2.5 mg PO BID [facility] Last Admin: 02/12/19 08:49 Dose: 2.5 mg Documented by: Benzonatate (Tessalon Perle) 200 mg PO TID PRN PRN PRN Reason: COUGH Last Admin: 02/09/19 09:25 Dose: 200 mg Documented by: Calamine/Phenol (Calmoseptine Ointment) 1 applic TOPICAL BID [facility]; Protocol Last Admin: 02/12/19 08:54 Dose: 1 applicatio Documented by: Diphenhydramine HCl (Benadryl) 25 mg PO TID PRN PRN PRN Reason: ITCHING Last Admin: 02/12/19 14:18 Dose: 25 mg Documented by: Donepezil HCl (Aricept) 5 mg PO QHS [facility] Last Admin: 02/11/19 21:54 Dose: 5 mg Documented by: Duloxetine HCl (Cymbalta) 20 mg PO DAILY [facility] Last Admin: 02/12/19 08:44 Dose: 20 mg Documented by: Ergocalciferol (Vitamin D) 50,000 unit PO MO [facility] Last Admin: 02/08/19 09:35 Dose: 50,000 unit Documented by: Ferrous Sulfate (Ferrous Sulfate) 325 mg PO DAILYCM [facility] Last Admin: 02/12/19 08:45 Dose: 325 mg Documented by: Furosemide (Lasix) 40 mg PO BID@1000,1800 [facility] Last Admin: 02/12/19 08:45 Dose: 40 mg Documented by: Gabapentin (Neurontin) 600 mg PO BID [facility] Last Admin: 02/12/19 08:45 Dose: 600 mg Documented by: Glucagon () 1 mg IM .X1 PRN PRN Reason: Hypoglycemia Guaifenesin (Mucinex) 1,200 mg PO BID [facility] Last Admin: 02/12/19 08:45 Dose: 1,200 mg Documented by: Hydralazine HCl (Apresoline) 50 mg PO TID [facility] Last Admin: 02/12/19 13:52 Dose: 50 mg Documented by: Hydrocortisone (Hytone) 1 applic RECTAL BID PRN PRN; Protocol PRN Reason: Hemorrhoids Meropenem 1 gm/ Sodium (Chloride) 120 mls @ 33 mls/hr IV Q12 [facility] Last Infusion: 02/12/19 13:14 Dose: Infused Documented by: Dextrose (Dextrose 10%-Water) 250 mls @ 999 mls/hr IV .Q16M PRN; Protocol PRN Reason: HYPOGLYCEMIA Sodium Chloride () 250 mls @ 15 mls/hr IV .[id number] PRN PRN Reason: Saline Flush Last Infusion: 02/12/19 02:37 Dose: 0 mls/hr Documented by: Sodium Chloride () 250 mls @ 15 mls/hr IV .[id number] PRN PRN Reason: Additional IVPB Infusion Magnesium Oxide (Mag-Ox 400) 400 mg PO BID [facility] Last Admin: 02/12/19 08:45 Dose: 400 mg Documented by: Melatonin (Melatonin) 3 mg PO QHS PRN PRN PRN Reason: INSOMNIA Last Admin: 02/09/19 21:18 Dose: 3 mg Documented by: Metoprolol Tartrate (Lopressor (Beta Tommy)) 50 mg PO BID [facility] Last Admin: 02/12/19 08:45 Dose: 50 mg Documented by: Morphine Sulfate () 2 - 4 mg IV Q3H PRN PRN PRN Reason: Pain Score 1-10/10 Morphine Sulfate () 2 - 4 mg IV Q3H PRN PRN PRN Reason: PAIN SCORE 1-10/10 Nutritional Formula (Lactose Free) (Glucerna Shake) 120 ml PO TIDCM [facility] Last Admin: 02/12/19 12:13 Dose: 120 ml Documented by: Nystatin (Mycostatin Powder) 1 applic TOPICAL BID [facility]; Protocol Last Admin: 02/12/19 08:49 Dose: 1 applicatio Documented by: Ondansetron HCl (Zofran) 4 mg IV Q8H PRN PRN PRN Reason: NAUSEA/VOMITING Pantoprazole Sodium (Protonix) 40 mg PO DAILY [facility] Last Admin: 02/12/19 08:44 Dose: 40 mg Documented by: Polyethylene Glycol (Miralax) 17 gm PO DAILY [facility] Last Admin: 02/12/19 08:46 Dose: Not Given Documented by: Potassium Chloride (K-Dur) 20 meq PO BID [facility] Last Admin: 02/12/19 08:45 Dose: 20 meq Documented by: Sodium Chloride () 10 - 40 ml IV UD PRN PRN Reason: SALINE FLUSH Last Admin: 02/12/19 09:15 Dose: 10 ml Documented by: Sodium Hypochlorite (Dakins Solution 0.25% (1/2 Strength)) 1 applic TOPICAL BID [facility]; Protocol Last Admin: 02/12/19 08:53 Dose: 1 applicatio Documented by: Clinical Impression(s) from Imaging Studies Chest X-Ray 02/12/19 09:50 IMPRESSION: No interval change Electronically Signed: Zan Quezada MD at 10:10 EST , Service support , Medical Necessity - Tobacco Use Smoking Status: Former smoker Assessment/Plan RECOMMENDATIONS: 1. Complete 7-day treatment course of antibiotics, okay to discontinue tomorrow. 2. Consider transitioning to every 6 hour while awake DuoNeb therapy 3. Continue lower extremity wound care 4. Wean supplemental oxygen to maintain saturations at or above 90%. 5. Encourage incentive spirometer use and mobilize patient as tolerated. 6. Encourage BiPAP therapy with naps and nightly. 7. Perform walking oximetry study prior to consideration for discharge home. 8. Outpatient pulmonary follow-up within 2 weeks of discharge is warranted. IMPRESSIONS: 1. Acute hypoxemic respiratory insufficiency secondary to possible community-acquired pneumonia versus heart failure exacerbation Patient does have constitutional symptoms consistent with community-acquired pneumonia. Patient continues on meropenem and likely can be treated with a total of 7 days of antibiotics. Patient did have an elevated BNP, but is appearing clinically euvolemic. Laboratory data suggest patient is tolerating diuresis for now. Patient did not have evidence of obstructive lung disease in December, but this can be reevaluated as an outpatient. CHF could be a potential confounder. Continue to encourage mobilization, incentive spirometer use and pulmonary toileting as tolerated. Patient will need a walking oximetry prior to discharge. BiPAP may also help with basilar recruitment, but patient appears to be resistant. Likely okay to be discharged home if able to tolerate 6 L or less with ambulation. 2. Obstructive sleep apnea The patient has a known history of LAURITA and is currently noncompliant with the use of nocturnal Pap therapy. However, while admitted to the hospital, the patient will be maintained on nocturnal BiPAP therapy with a pressure support of 12/6 centimeters of water. Patient appears to be tolerating this as an inpatient, so may be able to be reinitiated as an outpatient at previous settings. 3. Chronic lower extremity wounds/diabetes mellitus/obesity/hypertension/paroxysmal atrial fibrillation/GERD Complicates care, management, recovery and prognosis. Continue home medications per outpatient regimen. Code Visit Inpatient E&M: 73997 [facility] Hosp L2
[2019-02-12] MEDS: MELATONIN 3 MG TABLET PO (21:57)
[2019-02-12] MEDS: Donepezil HCl 5 MG Tablet PO (21:58)
[2019-02-13] VITALS (14 sets, daily range): BP systolic 119–145; BP diastolic 53–59; PULSE 60–94; RESP 12–26; TEMP 36.8–37.1; O2SAT 86–97
[2019-02-13] MEDS: hydrALAZINE 50 MG Tablet PO (05:50)
[2019-02-13] MEDS: Ipratropium/Albuterol Sulfate 3 ML AMPUL.NEB INHALATION ×3 (07:27→14:25)
[2019-02-13] MEDS: 0.9% Saline Lock 10 ML Syringe IV (09:35)
--- NOTE | 2019-02-13 09:38 | PCM.TXEXTCAR ---
- Diet 02/07/19 01:24 Diet: Cardiac/low-cholesterol diet, fluid restriction to less than 1500 cc daily Food consistency:: Regular Liquid Consistency:: Regular/Thin Type of Dietary Supplement:: Glucerna 1.5 emilio Is pt able to select menu?: No Diet Comments: pt prefers chocolate glucerna - Routine Orders/Code Status O2 Liters per Minute: 2 O2 Frequency: Continuous Keep PO Greater than or Equal to (%): 90 Code Status: DNRCC-A - Wound(s) right calf Wound Type: ulcer right leg Wound Type: ulcer left calf Wound Type: ulcer scabbed wound right knee Wound Type: multiple scabbed wound bilateral upper arms Wound Type: scattered abrasions left medial lower leg Wound Type: Open Surgical Wound Dressing Change: Dakins moistened gauze right lateral lower leg Wound Type: Open Surgical Wound Dressing Change: Dakins moistened gauze right medial lower legs Wound Type: Open Surgical Wound Dressing Change: Dakins moistened gauze - Suggestions for Active Care Change Position every (hours): 3 Hours to sit in a chair: 2 Times a day to sit in chair: 3 - Therapies Weight Bearing: Weight bearing as tolerated Physical Therapy: Eval and Treat Occupational Therapy: Eval and Treat - Allergies/Procedures Done in Hospital Allergies/Adverse Reactions: Allergies codeine Allergy (Unknown, Verified 01/22/19 10:07) Hives cefazolin Allergy (Verified 01/22/19 10:07) Rash ciprofloxacin [From Cipro] Allergy (Verified 01/22/19 10:07) Hives ciprofloxacin HCl [From Cipro] Allergy (Verified 01/22/19 10:07) Hives Latex, Natural Rubber Allergy (Verified 01/22/19 10:07) Rash Penicillins [PCN] Allergy (Verified 01/22/19 10:07) Hives vancomycin Allergy (Verified 01/22/19 10:07) Angioedema adhesive tape Adverse Reaction (Verified 01/22/19 10:07) Rash - Type of Care/Length of Stay Estimated LOS: Convalescent Care Less Than 30 days Type of Care Needed: Skilled Rehab Potential: Fair Prognosis: Fair - Additional Orders/Day of Discharge H&P will serve as current which was dated: 01/02/20 Day of Discharge: 02/13/19 - Dietary and Speech Recommendations Dietitian Recommendations/Changes: Recommend regular, low sodium diet d/t poor PO intake. Rec Ej bid to help w/ skin healing. Continue Glucerna TID. - Follow Up Care Primary Care Physician: Uriel Mac MD [Primary Care Provider] - Please follow up with your Primary Care Physician in: 1 week.
--- NOTE | 2019-02-13 09:40 | PN_ITS ---
- Physical Exam Vitals/I&O's: Vital Signs Temp Pulse Resp BP Pulse Ox 98.2 F 70 22 H 145/53 H 96 02/13/19 05:46 02/13/19 07:56 02/13/19 07:27 02/13/19 05:50 02/13/19 07:27 Oxygen Flow Rate (L/min) 2 Oxygen Delivery Method Nasal Cannula Weight: 212 lb 11.937 oz Body Mass Index (BMI) 41.5 Finger Stick Blood Glucose 187 Intake and Output for Last 24 Hours 02/11/19 02/12/19 02/13/19 23:59 23:59 23:59 Intake Total 1989 / 1989 1203.5 / 1403.5 432.5 / 432.5 Output Total 950 / 950 1999 / 2450 750 / 750 Balance 1040 / 1040 -796.5 / -1046.5 -317.5 / -317.5 Microbiology Past 72 Hours 02/09/19 11:15 Mucosa - Nose Respiratory Panel (PCR) - Final RSV A 02/06/19 21:10 Urine Catheter - Catheter Urine Culture - Final Klebsiella pneumoniae sp pneum 02/06/19 21:00 Blood Culture (Wb) - Left Wrist Blood Culture - Final No growth in 5 days. 02/06/19 21:30 Blood Culture (Wb) - Left Hand Blood Culture - Final No growth in 5 days. Current Medications Acetaminophen (Tylenol) 650 mg PO Q6H PRN PRN PRN Reason: Pain Score 1-10/Temp > 100.7 F Last Admin: 02/10/19 13:47 Dose: 650 mg Documented by: Albuterol Sulfate (Ventolin Aerosols) 2.5 mg INHALATION Q2H PRN PRN PRN Reason: Shortness of Breath/Wheezing Last Admin: 02/12/19 05:31 Dose: 2.5 mg Documented by: Albuterol/Ipratropium (Duoneb) 3 ml INHALATION Q4HWA.RT [facility] Last Admin: 02/13/19 07:27 Dose: 3 ml Documented by: Amiodarone HCl (Cordarone) 200 mg PO DAILY [facility] Last Admin: 02/12/19 08:49 Dose: 200 mg Documented by: Amlodipine Besylate (Norvasc) 2.5 mg PO DAILY [facility] Last Admin: 02/12/19 08:44 Dose: 2.5 mg Documented by: Apixaban (Eliquis) 2.5 mg PO BID [facility] Last Admin: 02/12/19 21:58 Dose: 2.5 mg Documented by: Benzonatate (Tessalon Perle) 200 mg PO TID PRN PRN PRN Reason: COUGH Last Admin: 02/09/19 09:25 Dose: 200 mg Documented by: Calamine/Phenol (Calmoseptine Ointment) 1 applic TOPICAL BID [facility]; Protocol Last Admin: 02/12/19 21:58 Dose: 1 applicatio Documented by: Diphenhydramine HCl (Benadryl) 25 mg PO TID PRN PRN PRN Reason: ITCHING Last Admin: 02/12/19 22:38 Dose: 25 mg Documented by: Donepezil HCl (Aricept) 5 mg PO QHS [facility] Last Admin: 02/12/19 21:58 Dose: 5 mg Documented by: Duloxetine HCl (Cymbalta) 20 mg PO DAILY [facility] Last Admin: 02/12/19 08:44 Dose: 20 mg Documented by: Ergocalciferol (Vitamin D) 50,000 unit PO MO [facility] Last Admin: 02/08/19 09:35 Dose: 50,000 unit Documented by: Ferrous Sulfate (Ferrous Sulfate) 325 mg PO DAILYCM [facility] Last Admin: 02/12/19 08:45 Dose: 325 mg Documented by: Furosemide (Lasix) 40 mg PO BID@1000,1800 [facility] Last Admin: 02/12/19 17:07 Dose: 40 mg Documented by: Gabapentin (Neurontin) 600 mg PO BID [facility] Last Admin: 02/12/19 21:57 Dose: 600 mg Documented by: Glucagon () 1 mg IM .X1 PRN PRN Reason: Hypoglycemia Guaifenesin (Mucinex) 1,200 mg PO BID [facility] Last Admin: 02/12/19 21:58 Dose: 1,200 mg Documented by: Hydralazine HCl (Apresoline) 50 mg PO TID [facility] Last Admin: 02/13/19 05:50 Dose: 50 mg Documented by: Hydrocortisone (Hytone) 1 applic RECTAL BID PRN PRN; Protocol PRN Reason: Hemorrhoids Meropenem 1 gm/ Sodium (Chloride) 120 mls @ 33 mls/hr IV Q12 [facility] Last Infusion: 02/13/19 01:37 Dose: Infused Documented by: Dextrose (Dextrose 10%-Water) 250 mls @ 999 mls/hr IV .Q16M PRN; Protocol PRN Reason: HYPOGLYCEMIA Sodium Chloride () 250 mls @ 15 mls/hr IV .[id number] PRN PRN Reason: Saline Flush Last Infusion: 02/13/19 02:27 Dose: 0 mls/hr Documented by: Sodium Chloride () 250 mls @ 15 mls/hr IV .[id number] PRN PRN Reason: Additional IVPB Infusion Magnesium Oxide (Mag-Ox 400) 400 mg PO BID [facility] Last Admin: 02/12/19 21:57 Dose: 400 mg Documented by: Melatonin (Melatonin) 3 mg PO QHS PRN PRN PRN Reason: INSOMNIA Last Admin: 02/12/19 21:57 Dose: 3 mg Documented by: Metoprolol Tartrate (Lopressor (Beta Tommy)) 50 mg PO BID [facility] Last Admin: 02/12/19 21:57 Dose: 50 mg Documented by: Morphine Sulfate () 2 - 4 mg IV Q3H PRN PRN PRN Reason: Pain Score 1-10/10 Morphine Sulfate () 2 - 4 mg IV Q3H PRN PRN PRN Reason: PAIN SCORE 1-10/10 Nutritional Formula (Lactose Free) (Glucerna Shake) 120 ml PO TIDCM [facility] Last Admin: 02/12/19 17:07 Dose: 120 ml Documented by: Nystatin (Mycostatin Powder) 1 applic TOPICAL BID [facility]; Protocol Last Admin: 02/12/19 21:58 Dose: 1 applicatio Documented by: Ondansetron HCl (Zofran) 4 mg IV Q8H PRN PRN PRN Reason: NAUSEA/VOMITING Pantoprazole Sodium (Protonix) 40 mg PO DAILY [facility] Last Admin: 02/12/19 08:44 Dose: 40 mg Documented by: Polyethylene Glycol (Miralax) 17 gm PO DAILY [facility] Last Admin: 02/12/19 08:46 Dose: Not Given Documented by: Potassium Chloride (K-Dur) 20 meq PO BID [facility] Last Admin: 02/12/19 21:57 Dose: 20 meq Documented by: Sodium Chloride () 10 - 40 ml IV UD PRN PRN Reason: SALINE FLUSH Last Admin: 02/12/19 21:58 Dose: 20 ml Documented by: Sodium Hypochlorite (Dakins Solution 0.25% (1/2 Strength)) 1 applic TOPICAL BID [facility]; Protocol Last Admin: 02/12/19 22:11 Dose: 1 applicatio Documented by: Medical Necessity - Tobacco Use Smoking Status: Former smoker
[2019-02-13] MEDS: Glucerna Shake 120 ML LIQUID PO (09:41)
[2019-02-13] MEDS: guaiFENesin 1,200 MG Tablet 1200 MG PO (09:43)
[2019-02-13] MEDS: Ferrous Sulfate 325 MG Tablet PO (09:44)
[2019-02-13] MEDS: Gabapentin 600 MG Tablet PO (09:44)
[2019-02-13] MEDS: APIXABAN 2.5 MG TABLET PO (09:44)
[2019-02-13] MEDS: Metoprolol Tartrate 50 MG Tablet PO (09:45)
[2019-02-13] MEDS: amLODIPine 2.5 MG Tablet PO (09:45)
[2019-02-13] MEDS: Nystatin Powder 15gm Bottle 1 APPLIC TOPICAL (09:45)
[2019-02-13] MEDS: Furosemide 40 MG Tablet PO (09:45)
[2019-02-13] MEDS: DULoxetine Hcl 20 MG Capsule PO (09:45)
[2019-02-13] MEDS: Pantoprazole Sodium 40 MG Tablet PO ×2 (09:45)
[2019-02-13] MEDS: Amiodarone 200 MG Tablet PO (09:45)
[2019-02-13] MEDS: Acetaminophen 325 MG Tablet 650 MG PO (09:46)
[2019-02-13] MEDS: DiphenhydrAMINE 25 MG Capsule PO (09:46)
[2019-02-13] MEDS: Polyethylene Glycol 3350 17 GM PACKET PO (09:55)
[2019-02-13] MEDS: Menthol/Lanolin/Calamine/Znox 113 GM Tube 1 APPLIC TOPICAL (09:55)
[2019-02-13] MEDS: DAKIN'S SOL HALF STRENGTH (=0.25%) 1 APPLIC TOPICAL (09:56)
[2019-02-13] MEDS: Magnesium Oxide 400 MG Tablet PO (09:56)
--- NOTE | 2019-02-13 10:30 | PN_ITS ---
Subjective: Patient feels subjectively improved compared to previous. No acute events were reported overnight. Patient is asking to take a shower. Patient has required supplemental oxygen at rest to maintain saturations. - Physical Exam Vitals/I&O's: Vital Signs Temp Pulse Resp BP Pulse Ox 36.9 C 72 20 H 119/59 L 93 02/13/19 09:50 02/13/19 09:50 02/13/19 10:00 02/13/19 09:50 02/13/19 10:00 Oxygen Flow Rate (L/min) 2 Oxygen Delivery Method Nasal Cannula Weight: 96.5 kg Body Mass Index (BMI) 41.5 Finger Stick Blood Glucose 187 Intake and Output for Last 24 Hours 02/11/19 02/12/19 02/13/19 23:59 23:59 23:59 Intake Total 1989 / 1989 1203.5 / 1403.5 432.5 / 432.5 Output Total 950 / 950 2000 / 2450 750 / 750 Balance 1040 / 1040 -796.5 / -1046.5 -317.5 / -317.5 General: Alert, Oriented x3, Cooperative, No apparent distress, - - Morbidly obese. No conversational dyspnea. HEENT: Atraumatic, PERRLA, EOMI, Normocephalic, - - No scleral icterus or injection noted Oral: Moist Mucosa, No Gingival or Mucosal Lesions/ Ulcerations Neck: Supple, No JVD, No Nodes, Trachea Midline Lungs: No rhonchi, No rales, Diminished, Wheezes - Sporadic, - - Symmetric expansion. Cardiovascular: Regular rate, Regular Rhythm, Normal S1, Normal S2, No murmurs, No rub noted, No Gallop Abdomen: Bowel Sounds Present, Soft, Non Tender, Non-Distended, Obese Extremities: No clubbing, No cyanosis, No edema, - - Pino bandages in place Skin: - - No change compared to previous Musculoskeletal: No Tenderness to Palpation of Joints or Extremities Lymphatic: No Cervical, Supraclavicular, or Inguinal Adenopathy Neurological: Cranial nerves II-XII grossly intact, Neuro grossly intact, Motor Exam 5/5 strength throughout Psych/Mental Status: Alert and oriented to time, place, person, mood and affect Microbiology Past 72 Hours 02/09/19 11:15 Mucosa - Nose Respiratory Panel (PCR) - Final RSV A 02/06/19 21:10 Urine Catheter - Catheter Urine Culture - Final Klebsiella pneumoniae sp pneum 02/06/19 21:00 Blood Culture (Wb) - Left Wrist Blood Culture - Final No growth in 5 days. 02/06/19 21:30 Blood Culture (Wb) - Left Hand Blood Culture - Final No growth in 5 days. Current Medications Acetaminophen (Tylenol) 650 mg PO Q6H PRN PRN PRN Reason: Pain Score 1-10/Temp > 100.7 F Last Admin: 02/13/19 09:46 Dose: 650 mg Documented by: Albuterol Sulfate (Ventolin Aerosols) 2.5 mg INHALATION Q2H PRN PRN PRN Reason: Shortness of Breath/Wheezing Last Admin: 02/12/19 05:31 Dose: 2.5 mg Documented by: Albuterol/Ipratropium (Duoneb) 3 ml INHALATION Q4HWA.RT [facility] Last Admin: 02/13/19 07:27 Dose: 3 ml Documented by: Amiodarone HCl (Cordarone) 200 mg PO DAILY [facility] Last Admin: 02/13/19 09:45 Dose: 200 mg Documented by: Amlodipine Besylate (Norvasc) 2.5 mg PO DAILY [facility] Last Admin: 02/13/19 09:45 Dose: 2.5 mg Documented by: Apixaban (Eliquis) 2.5 mg PO BID [facility] Last Admin: 02/13/19 09:44 Dose: 2.5 mg Documented by: Benzonatate (Tessalon Perle) 200 mg PO TID PRN PRN PRN Reason: COUGH Last Admin: 02/09/19 09:25 Dose: 200 mg Documented by: Calamine/Phenol (Calmoseptine Ointment) 1 applic TOPICAL BID [facility]; Protocol Last Admin: 02/13/19 09:55 Dose: 1 applicatio Documented by: Diphenhydramine HCl (Benadryl) 25 mg PO TID PRN PRN PRN Reason: ITCHING Last Admin: 02/13/19 09:46 Dose: 25 mg Documented by: Donepezil HCl (Aricept) 5 mg PO QHS [facility] Last Admin: 02/12/19 21:58 Dose: 5 mg Documented by: Duloxetine HCl (Cymbalta) 20 mg PO DAILY [facility] Last Admin: 02/13/19 09:45 Dose: 20 mg Documented by: Ergocalciferol (Vitamin D) 50,000 unit PO MO [facility] Last Admin: 02/08/19 09:35 Dose: 50,000 unit Documented by: Ferrous Sulfate (Ferrous Sulfate) 325 mg PO DAILYCM [facility] Last Admin: 02/13/19 09:44 Dose: 325 mg Documented by: Furosemide (Lasix) 40 mg PO BID@1000,1800 [facility] Last Admin: 02/13/19 09:45 Dose: 40 mg Documented by: Gabapentin (Neurontin) 600 mg PO BID [facility] Last Admin: 02/13/19 09:44 Dose: 600 mg Documented by: Glucagon () 1 mg IM .X1 PRN PRN Reason: Hypoglycemia Guaifenesin (Mucinex) 1,200 mg PO BID [facility] Last Admin: 02/13/19 09:43 Dose: 1,200 mg Documented by: Hydralazine HCl (Apresoline) 50 mg PO TID [facility] Last Admin: 02/13/19 05:50 Dose: 50 mg Documented by: Hydrocortisone (Hytone) 1 applic RECTAL BID PRN PRN; Protocol PRN Reason: Hemorrhoids Meropenem 1 gm/ Sodium (Chloride) 120 mls @ 33 mls/hr IV Q12 [facility] Last Admin: 02/13/19 09:35 Dose: 33 mls/hr Documented by: Dextrose (Dextrose 10%-Water) 250 mls @ 999 mls/hr IV .Q16M PRN; Protocol PRN Reason: HYPOGLYCEMIA Sodium Chloride () 250 mls @ 15 mls/hr IV .[id number] PRN PRN Reason: Saline Flush Last Infusion: 02/13/19 02:27 Dose: 0 mls/hr Documented by: Sodium Chloride () 250 mls @ 15 mls/hr IV .[id number] PRN PRN Reason: Additional IVPB Infusion Magnesium Oxide (Mag-Ox 400) 400 mg PO BID [facility] Last Admin: 02/13/19 09:56 Dose: 400 mg Documented by: Melatonin (Melatonin) 3 mg PO QHS PRN PRN PRN Reason: INSOMNIA Last Admin: 02/12/19 21:57 Dose: 3 mg Documented by: Metoprolol Tartrate (Lopressor (Beta Tommy)) 50 mg PO BID [facility] Last Admin: 02/13/19 09:45 Dose: 50 mg Documented by: Morphine Sulfate () 2 - 4 mg IV Q3H PRN PRN PRN Reason: Pain Score 1-10/10 Morphine Sulfate () 2 - 4 mg IV Q3H PRN PRN PRN Reason: PAIN SCORE 1-10/10 Nutritional Formula (Lactose Free) (Glucerna Shake) 120 ml PO TIDCM [facility] Last Admin: 02/13/19 09:41 Dose: 120 ml Documented by: Nystatin (Mycostatin Powder) 1 applic TOPICAL BID [facility]; Protocol Last Admin: 02/13/19 09:45 Dose: 1 applicatio Documented by: Ondansetron HCl (Zofran) 4 mg IV Q8H PRN PRN PRN Reason: NAUSEA/VOMITING Pantoprazole Sodium (Protonix) 40 mg PO DAILY [facility] Last Admin: 02/13/19 09:45 Dose: 40 mg Documented by: Polyethylene Glycol (Miralax) 17 gm PO DAILY [facility] Last Admin: 02/13/19 09:55 Dose: 17 gm Documented by: Potassium Chloride (K-Dur) 20 meq PO BID [facility] Last Admin: 02/13/19 09:42 Dose: 20 meq Documented by: Sodium Chloride () 10 - 40 ml IV UD PRN PRN Reason: SALINE FLUSH Last Admin: 02/13/19 09:35 Dose: 20 ml Documented by: Sodium Hypochlorite (Dakins Solution 0.25% (1/2 Strength)) 1 applic TOPICAL BID [facility]; Protocol Last Admin: 02/13/19 09:56 Dose: 1 applicatio Documented by: Medical Necessity - Tobacco Use Smoking Status: Former smoker Assessment/Plan RECOMMENDATIONS: 1. Okay to discontinue antibiotics from my perspective 2. BiPAP should be continued at extended-care facility on discharge 3. Continue lower extremity wound care 4. Wean supplemental oxygen to maintain saturations at or above 90%. 5. Encourage incentive spirometer use and mobilize patient as tolerated. 6. Encourage BiPAP therapy with naps and nightly. 7. Perform walking oximetry study prior to consideration for discharge home. 8. Outpatient pulmonary follow-up within 2 weeks of discharge is warranted. IMPRESSIONS: 1. Acute hypoxemic respiratory insufficiency secondary to RSV versus heart failure exacerbation Patient does have constitutional symptoms consistent with community- acquired pneumonia. Patient should have completed antibiotic course today. Patient did have an elevated BNP, but is appearing clinically euvolemic. Laboratory data suggest patient is tolerating diuresis for now. Patient did not have evidence of obstructive lung disease in December, but this can be reevalua ameya as an outpatient. CHF could be a potential confounder. Continue to encourage mobilization, incentive spirometer use and pulmonary toileting as tolerated. Patient will need a walking oximetry prior to discharge. BiPAP may also help with basilar recruitment, but patient appears to be resistant. Likely okay to be discharged home if able to tolerate 6 L or less with ambulation. 2. Obstructive sleep apnea The patient has a known history of LAURITA and is currently noncompliant with the use of nocturnal Pap therapy. However, while admitted to the hospital, the patient will be maintained on nocturnal BiPAP therapy with a pressure support of 12/6 centimeters of water. Patient should continue BiPAP at [facility] on discharge. Patient will require repeat sleep study to continue this prior to going home from [facility]. 3. Chronic lower extremity wounds/diabetes mellitus/obesity/hypertension/paroxysmal atrial fibrillation/GERD Complicates care, management, recovery and prognosis. Continue home medications per outpatient regimen. Code Visit Inpatient E&M: 13663 Subs Hosp L2
--- NOTE | 2019-02-13 11:23 | CASEMGMT ---
Social Work Note SW received message from Quiana at [facility] stating pre-cert has been obtained and is able to discharge today. Physician updated, pt is medically cleared for discharge. JAGDEEP faxed completed discharge paperwork to [facility] including transfer to extended care facility, signed medication list and any scripts. Original in SNF folder and copy on pt's chart. JAGDEEP spoke with RN who states pt is able to transport via cot but transportation will need to be arranged after 2:30pm as pt still has medicine running. JAGDEEP placed a call to [facility] and arranged transportation via cot for 2:30pm. Transportation form on SNF folder and copy on pt's chart. SW updated RN and Quiana at [facility] on transportation time. SW in to update pt on discharge and transportation time. Pt states understanding and gives this worker permission to call her [facility] to update her on discharge. SW placed a call to [facility] and updated her on approval, discharge and transport time to [facility] today. Plan: [facility] skilled today with [facility] transporting via cot at 2:30pm Digna Palumbo PAINTER MIRROR, DATABASE SOFTWARE TECHNICIAN
--- NOTE | 2019-02-13 12:10 | PCM.DC.SUM ---
Discharge Date and Diagnosis Date of Admission: 02/06/19 Date of Discharge: 02/13/19 - Primary Discharge Diagnosis #1 community-acquired pneumonia/sepsis . #2 probable acute diastolic CHF. #3 acute hypoxic respiratory failure. - Secondary Discharge Diagnosis Chronic Problems (Last Reviewed 02/07/19 @ 00:24 by Oziel Angel MD) Venous insufficiency of both lower extremities (Chronic) Chronic GI bleeding (Chronic) GERD (gastroesophageal reflux disease) (Chronic) Dementia (Chronic) Restrictive airway disease (Chronic) LAURITA (obstructive sleep apnea) (Chronic) Essential hypertension (Chronic) Type 2 diabetes mellitus (Chronic) Diastolic CHF (Chronic) Iron deficiency anemia (Chronic) etiology unknown Ulcer of right lower extremity with fat layer exposed (Chronic) Ulcer of left lower extremity with fat layer exposed (Chronic) PVD (peripheral vascular disease) (Chronic) Presence of stent in coronary artery (Chronic ~08/29/12) PTCA/stent to CX; PTCA/Stent PTCA/stent to prox RCA 05/06; PTCA/LILY in mid to distal RCA 08/29/12 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 Stable cardiomegaly status post prior midline sternotomy. Electronically Signed: Cecilia Marsh MD at 22:08 EST , Service support , Chest X-Ray 02/08/19 04:50 IMPRESSION: Decrease in bilateral infiltrates. at 0800 Reported and signed by: Sheri Hernandez MD Electronically Signed: Sheri Hernandez MD at 8:00 EST Tel , Service support , Chest X-Ray 02/09/19 12:06 IMPRESSION: Progressing right upper lobe and right basilar alveolar disease. 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 Walters, pulmonology. Operations: None Procedures: 2-D Echocardiogram, EKG Summary of Care Provided: Patient seen and examined on the day of discharge and appeared to be stable to be [facility]. She states that her breathing is much better than yesterday, has no more cough. She remained on oxygen, other vital signs are stable. This is a 74 years old female patient presented to the emergency because of shortness of breath and fever and she was found to have bibasilar lung infiltrate consistent with pneumonia and also found to have probable acute diastolic CHF and both are complicated by acute hypoxic respiratory failure. #1 acute community-acquired pneumonia/sepsis: Completed 7 days of IV meropenem. Blood culture showed no growth in 5 days. Respiratory panel for viruses were positive for RSV A.she remained afebrile and her white blood cell count is back to normal. Pneumococcal and Legionella antigen were negative. Nasal swab for influenza a and B were negative. Urine culture revealed Klebsiella pneumoniae although there was no strong evidence of UTI on urinalysis. [facility], no antibiotic was given upon discharge, discharged on BiPAP at night and with naps, on oxygen at 2 L. #2 probable acute diastolic CHF: Treated with IV Lasix as well as metoprolol. Volume status stabilized. Kidney function been stable. Potassium replaced and corrected. EKG without acute ischemic changes. Troponin is negative. 2D echocardiogram revealed ejection fraction of 65%. Patient discharged on Lasix 40 mg p.o. twice daily, continued on metoprolol and hydralazine with potassium supplement. #3 acute hypoxic respiratory failure: Secondary to #1 and #2. Treated with IV antibiotics, IV diuresis and BiPAP as well as oxygen. Respiratory status improved and her oxygen requirement decreased. Patient discharged on oxygen at 2 L as well as BiPAP at night and with naps. #4 CAD status post CABG: Stable, continueD on Eliquis, metoprolol. #5 paroxysmal atrial fibrillation: Rate is controlled, continueD on amiodarone and metoprolol for rate control, continued on Eliquis for anticoagulation. #6 obstructive sleep apnea: Noncompliant, discharged on BiPAP at night. Plan to follow-up with pulmonology as outpatient and she will need sleep study as outpatient as well. Patient discharged to [facility] facility in a stable medical condition, completed course of IV meropenem for 7 days, discharged on BiPAP and oxygen as above, discharged on Lasix 40 mg p.o. twice daily, continued on her other previous home medications without any changes, plan to follow-up with pulmonology in 2 weeks, recommended follow-up with PCP in 1 week. This note was generated with [employer] dictation software. It may contain incorrect words, spelling, and punctuation that were not noted in checking the note before signing. - Physical Exam Vitals/I&O's: Vital Signs Temp Pulse Resp BP Pulse Ox 98.4 F 68 20 H 119/59 L 86 02/13/19 09:50 02/13/19 11:19 02/13/19 11:19 02/13/19 09:50 02/13/19 10:00 Oxygen Flow Rate (L/min) 2 Oxygen Delivery Method Nasal Cannula Weight: 212 lb 11.937 oz Body Mass Index (BMI) 41.5 Finger Stick Blood Glucose 187 Intake and Output for Last 24 Hours 02/11/19 02/12/19 02/13/19 23:59 23:59 23:59 Intake Total 1989 / 1989 1203.5 / 1403.5 432.5 / 432.5 Output Total 950 / 950 2000 / 2450 750 / 750 Balance 1040 / 1040 -796.5 / -1046.5 -317.5 / -317.5 General: Alert, Oriented x3, Cooperative, No apparent distress HEENT: Atraumatic, PERRLA, EOMI, Normocephalic Oral: Moist Mucosa, No Gingival or Mucosal Lesions/ Ulcerations Neck: Supple, No JVD, Negative Carotid Bruits, Trachea Midline, Thyroid Normal Size and Texture Lungs: No wheeze, No rales, Diminished, Rhonchi, - - Diminished breath sounds bilateral, scattered rhonchi. Cardiovascular: Regular rate, Regular Rhythm, Normal S1, Normal S2, PMI Normal Abdomen: Bowel Sounds Present, Soft, Non Tender, Non-Distended, No Hepato-splenomegaly, Obese Extremities: No clubbing, No cyanosis, Edema Skin: No rashes, No breakdown Lymphatic: No Cervical, Supraclavicular, or Inguinal Adenopathy Neurological: Cranial nerves II-XII grossly intact, Neuro grossly intact Psych/Mental Status: Normal Affect, Appropriate Microbiology Past 72 Hours 02/09/19 11:15 Mucosa - Nose Respiratory Panel (PCR) - Final RSV A 02/06/19 21:10 Urine Catheter - Catheter Urine Culture - Final Klebsiella pneumoniae sp pneum 02/06/19 21:00 Blood Culture (Wb) - Left Wrist Blood Culture - Final No growth in 5 days. 02/06/19 21:30 Blood Culture (Wb) - Left Hand Blood Culture - Final No growth in 5 days. Current Medications Acetaminophen (Tylenol) 650 mg PO Q6H PRN PRN PRN Reason: Pain Score 1-10/Temp > 100.7 F Last Admin: 02/13/19 09:46 Dose: 650 mg Documented by: Albuterol Sulfate (Ventolin Aerosols) 2.5 mg INHALATION Q2H PRN PRN PRN Reason: Shortness of Breath/Wheezing Last Admin: 02/12/19 05:31 Dose: 2.5 mg Documented by: Albuterol/Ipratropium (Duoneb) 3 ml INHALATION Q4HWA.RT [facility] Last Admin: 02/13/19 11:19 Dose: 3 ml Documented by: Amiodarone HCl (Cordarone) 200 mg PO DAILY [facility] Last Admin: 02/13/19 09:45 Dose: 200 mg Documented by: Amlodipine Besylate (Norvasc) 2.5 mg PO DAILY [facility] Last Admin: 02/13/19 09:45 Dose: 2.5 mg Documented by: Apixaban (Eliquis) 2.5 mg PO BID [facility] Last Admin: 02/13/19 09:44 Dose: 2.5 mg Documented by: Benzonatate (Tessalon Perle) 200 mg PO TID PRN PRN PRN Reason: COUGH Last Admin: 02/09/19 09:25 Dose: 200 mg Documented by: Calamine/Phenol (Calmoseptine Ointment) 1 applic TOPICAL BID [facility]; Protocol Last Admin: 02/13/19 09:55 Dose: 1 applicatio Documented by: Diphenhydramine HCl (Benadryl) 25 mg PO TID PRN PRN PRN Reason: ITCHING Last Admin: 02/13/19 09:46 Dose: 25 mg Documented by: Donepezil HCl (Aricept) 5 mg PO QHS [facility] Last Admin: 02/12/19 21:58 Dose: 5 mg Documented by: Duloxetine HCl (Cymbalta) 20 mg PO DAILY [facility] Last Admin: 02/13/19 09:45 Dose: 20 mg Documented by: Ergocalciferol (Vitamin D) 50,000 unit PO MO [facility] Last Admin: 02/08/19 09:35 Dose: 50,000 unit Documented by: [facility] Admin: 02/13/19 09:44 Dose: 325 mg Documented by: Furosemide (Lasix) 40 mg PO BID@1000,1800 [facility] Last Admin: 02/13/19 09:45 Dose: 40 mg Documented by: Gabapentin (Neurontin) 600 mg PO BID [facility] Last Admin: 02/13/19 09:44 Dose: 600 mg Documented by: Glucagon () 1 mg IM .X1 PRN PRN Reason: Hypoglycemia Guaifenesin (Mucinex) 1,200 mg PO BID [facility] Last Admin: 02/13/19 09:43 Dose: 1,200 mg Documented by: Hydralazine HCl (Apresoline) 50 mg PO TID [facility] Last Admin: 02/13/19 05:50 Dose: 50 mg Documented by: Hydrocortisone (Hytone) 1 applic RECTAL BID PRN PRN; Protocol PRN Reason: Hemorrhoids Meropenem 1 gm/ Sodium (Chloride) 120 mls @ 33 mls/hr IV Q12 [facility] Last Admin: 02/13/19 09:35 Dose: 33 mls/hr Documented by: Dextrose (Dextrose 10%-Water) 250 mls @ 999 mls/hr IV .Q16M PRN; Protocol PRN Reason: HYPOGLYCEMIA Sodium Chloride () 250 mls @ 15 mls/hr IV .[id number] PRN PRN Reason: Saline Flush Last Infusion: 02/13/19 02:27 Dose: 0 mls/hr Documented by: Sodium Chloride () 250 mls @ 15 mls/hr IV .[id number] PRN PRN Reason: Additional IVPB Infusion Magnesium Oxide (Mag-Ox 400) 400 mg PO BID [facility] Last Admin: 02/13/19 09:56 Dose: 400 mg Documented by: Melatonin (Melatonin) 3 mg PO QHS PRN PRN PRN Reason: INSOMNIA Last Admin: 02/12/19 21:57 Dose: 3 mg Documented by: Metoprolol Tartrate (Lopressor (Beta Tommy)) 50 mg PO BID [facility] Last Admin: 02/13/19 09:45 Dose: 50 mg Documented by: Morphine Sulfate () 2 - 4 mg IV Q3H PRN PRN PRN Reason: Pain Score 1-10/10 Morphine Sulfate () 2 - 4 mg IV Q3H PRN PRN PRN Reason: PAIN SCORE 1-10/10 Nutritional Formula (Lactose Free) (Glucerna Shake) 120 ml PO TIDCM [facility] Last Admin: 02/13/19 11:57 Dose: Not Given Documented by: Nystatin (Mycostatin Powder) 1 applic TOPICAL BID [facility]; Protocol Last Admin: 02/13/19 09:45 Dose: 1 applicatio Documented by: Ondansetron HCl (Zofran) 4 mg IV Q8H PRN PRN PRN Reason: NAUSEA/VOMITING Pantoprazole Sodium (Protonix) 40 mg PO DAILY [facility] Last Admin: 02/13/19 09:45 Dose: 40 mg Documented by: Polyethylene Glycol (Miralax) 17 gm PO DAILY [facility] Last Admin: 02/13/19 09:55 Dose: 17 gm Documented by: Potassium Chloride (K-Dur) 20 meq PO BID [facility] Last Admin: 02/13/19 09:42 Dose: 20 meq Documented by: Sodium Chloride () 10 - 40 ml IV UD PRN PRN Reason: SALINE FLUSH Last Admin: 02/13/19 09:35 Dose: 20 ml Documented by: Sodium Hypochlorite (Dakins Solution 0.25% (1/2 Strength)) 1 applic TOPICAL BID [facility]; Protocol Last Admin: 02/13/19 09:56 Dose: 1 applicatio Documented by: Home Medications: Medications to take at Discharge Amiodarone HCl 200 mg PO DAILY 04/09/18 Duloxetine HCl 60 mg PO DAILY 04/09/18 Magnesium Oxide [Mag-Ox 400] 400 mg PO BID 04/09/18 Metoprolol Tartrate [Lopressor (beta tommy)] 50 mg PO BID 04/09/18 Pantoprazole Sodium [Protonix] 40 mg PO BID 04/09/18 Ergocalciferol (Vitamin D2) [Vitamin D2] 50,000 unit PO MO 05/22/18 Donepezil HCl 5 mg PO QHS 08/19/18 Potassium Chloride [Klor-Con M20] 20 meq PO BID 08/19/18 ferrous sulfate 325 mg (65 mg iron) tablet,delayed release 325 mg PO DAILY 09/25/18 Amlodipine [Norvasc] 2.5 mg PO DAILY 12/13/18 hydrALAZINE [Apresoline] 50 mg PO TID 01/04/19 Acetaminophen [Tylenol Tablet] 650 mg PO Q6H PRN PRN tab 01/08/19 Gabapentin 600 mg PO BID 02/06/19 Oxycodone HCl 5 mg PO Q4H PRN PRN 02/06/19 Apixaban [Eliquis] 2.5 mg PO BID 02/07/19 Furosemide [Lasix] 40 mg PO BID@1000,1800 #90 tab 02/13/19 Ipratropium/Albuterol Sulfate [Duoneb] 3 ml INHALATION [id number] #30 ampul.neb 02/13/19 Following Prescrptions Were Given to Patient: Ipratropium/Albuterol Sulfate [Duoneb] 3 ml INHALATION [id number] #30 ampul.neb Prescription Printed Furosemide [Lasix] 40 mg PO BID@1000,1800 #90 tab Prescription Printed Primary Care Physician: Uriel Mac MD [Primary Care Provider] - Please follow up with your Primary Care Physician in: 1 week. Disposition: [facility] Minutes spent on discharge:: 33 Patient Condition:: Stable Medical Necessity - Tobacco Use Smoking Status: Former smoker Meaningful Use Info Meaningful Use Diagnoses (Choose all that apply): None applicable Code Visit Inpatient E&M: 13895 Disch Hosp
== END 2019-02-13 14:33 | disposition skilled nursing facility (03) | DRG 871 ==
LOC: ED 20:51 → MS3 02-07 02:09
PROVIDERS: Internal Medicine; Internal Medicine Critical Care Medicine; Admitting Provider Hospitalist; Emergency Provider Emergency Medicine; Family Provider Family Medicine; PCP Family Medicine; Referring Provider Hospitalist; Visit Provider Hospitalist
DX: A41.9 Sepsis, unspecified organism (principal); J96.01 Acute respiratory failure with hypoxia; I50.31 Acute diastolic (congestive) heart failure; J18.9 Pneumonia, unspecified organism; Z68.41 Body mass index [BMI] 40.0-44.9, adult; I87.2 Venous insufficiency (chronic) (peripheral); F03.90 Unspecified dementia, unspecified severity, without behavioral disturbance, psychotic disturbance, mood disturbance, and anxiety; G47.33 Obstructive sleep apnea (adult) (pediatric); I11.0 Hypertensive heart disease with heart failure; D50.9 Iron deficiency anemia, unspecified; E78.5 Hyperlipidemia, unspecified; I48.0 Paroxysmal atrial fibrillation; K21.9 Gastro-esophageal reflux disease without esophagitis; B97.4 Respiratory syncytial virus as the cause of diseases classified elsewhere; I25.10 Atherosclerotic heart disease of native coronary artery without angina pectoris; E87.6 Hypokalemia; Z66 Do not resuscitate; E11.9 Type 2 diabetes mellitus without complications; E66.9 Obesity, unspecified; Z95.1 Presence of aortocoronary bypass graft; Z95.5 Presence of coronary angioplasty implant and graft; Z87.891 Personal history of nicotine dependence; Z91.19 Patient's noncompliance with other medical treatment and regimen
CPT/HCPCS: 36415; 36600; 71045; 71046; 80048; 80053; 81001; 82803; 83605; 83880; 84484; 85025; 85610; 85730; 87040; 87077; 87086; 87088; 87186; 87449; 87633; 87641; 87804; 93005; 93306; 94002; 94003; 94640; 94667; 94668; 94762; 97110; 97116; 97162; 97166; 97530; 97535; 97802; 97803; 99251; 99285; J2185; J7030; J7050; Q9957; A4216; G0463; J1940

== ENCOUNTER 2019-02-14 01:37 | Inpatient (IN) | payer MEDICARE, SELFPAY ==
[2019-02-07 00:15] VITALS: BMI 41.5
[2019-02-14] VITALS (19 sets, daily range): BP systolic 107–171; BP diastolic 45–97; PULSE 70–98; RESP 12–24; TEMP 36.3–37.2; O2SAT 90–100; BMI 38.8; BMI 37.0
--- NOTE | 2019-02-14 02:06 | CT_ITS ---
STUDY: CT BRAIN WITHOUT CONTRAST REASON FOR EXAM: Female, 74 years old. Headache status post fall RADIATION DOSAGE (If Supplied By Facility): CTDIvol = ( 44.99 ) mGy, DLP = ( 796.11 ) mGycm TECHNIQUE: Transaxial CT imaging of the brain was performed without administration of intravenous contrast material. Individualized dose optimization techniques were used for this CT. COMPARISON: 11/21/2018 FINDINGS: Normal soft tissue structures. Normal calvarium. There is moderate cerebral atrophy with widening of the extra-axial spaces and ventricular dilatation. There is moderate bilateral periventricular and subcortical white matter hypoattenuation which is symmetric in distribution. Normal basal ganglia and thalami. Normal brainstem. Normal cerebellum. There is no intracranial hemorrhage. There are no findings of an acute ischemic infarction. There is moderate mucoperiosteal thickening of the paranasal sinuses. CT/Brain/Head without Contrast IMPRESSION: 1. No evidence of an acute intracranial abnormality. 2. Moderate bilateral periventricular and subcortical white matter chronic small vessel disease with age appropriate cerebral atrophy. 3. Moderate chronic paranasal sinus disease Electronically Signed: Adalberto Diop MD at 2:54 EST Tel , Service support ,
--- NOTE | 2019-02-14 02:07 | RAD_ITS ---
STUDY: X-RAY - PELVIS AND RIGHT HIP REASON FOR EXAM: Female, 74 years old. FALL, RT HIP PAIN TECHNIQUE: AP and crosstable lateral views of the right hip with AP view pelvis . COMPARISON: None. FINDINGS: There is a non-specific bowel gas pattern. Normal visualized soft tissue structures. There is degenerative change of the visualized lower lumbar spine. There is mild degenerative change of bilateral sacroiliac joints. Bilateral iliac wings, pubic rami, and ischial tuberosities are intact. There is a comminuted fracture of the intratrochanteric region of the right femur. The right hip joint remains in normal alignment with moderate degenerative change. The left hip joint is in normal alignment with moderate degenerative change. There is no left femoral fracture. There are phleboliths in the pelvis. Soft tissues are unremarkable. RAD/HIP, UNI W/ Pelvis 2-3 Views IMPRESSION: 1. Comminuted intertrochanteric right femoral fracture. 2. Moderate bilateral hip osteoarthritic change with mild associated degenerative change of bilateral sacroiliac joints. Electronically Signed: Adalberto Diop MD at 3:37 EST Tel , Service support ,
[2019-02-14 02:17] LABS: Absolute Lymphocyte Count 2.07 X10^3/uL (0.83-4.51); Absolute Neutrophil Count 6.6 X10^3/uL (2.0-7.7); Basophil# 0.02 X10^3/uL; Basophil% 0.2 % (0-1); Eosinophil# 0.31 X10^3/uL; Eosinophils% 3.1 % (0-5); Hematocrit 36.9 % (37-47); Lymphocyte # 2.07 X10^3/ul (4.0); Lymphocyte % 20.8 % (19-41); Mean Corp Hgb Conc 29.8 g/dL (32-36); Mean Corpuscular Hgb 27.2 pg (27.0-32.0); Mean Corpuscular Volume 91.1 fL (81-99); Mean Platelet Vol. 10.2 fl (6.2-12.0); Monocyte# 0.66 X10^3/uL; Monocyte% 6.6 % (0-10); NRBC Flagged by Analyzer 0 % (0-5); Neutrophil # 6.58 X10^3/uL (2.7-7.7); Neutrophil % 66.1 % (47-70); Platelet Count 337 K/mm3 (150-450); RBC Distribution Width CV 15.4 % (11.6-14.6); RBC Distribution Width SD 51.1 fl (35.1-43.9); Red Blood Count 4.05 M/mm3 (4.2-5.4)
[2019-02-14] MEDS: Morphine 4 MG/ML Syringe IV (02:23)
[2019-02-14] MEDS: Ondansetron 4 MG/2 ML Vial IV (02:23)
[2019-02-14 02:26] LABS: Anion Gap 3 (5-15); BUN 28 mg/dL (7-18); BUN/Creat Ratio 23.7 RATIO (10-20); Calcium,Total 9.1 mg/dL (8.5-10.1); Chloride 102 mmol/L (98-107); Creatinine, Serum 1.18 mg/dL (0.55-1.02); EST Glomerular Filtration Rate 48 mL/min (>60); Est Glom Filt Rate - Afr Amer 57 mL/min (>60); Estimated Creatinine Clearance 29.59 ml/min; Glucose 137 mg/dL (74-106); Potassium 3.9 mmol/L (3.5-5.1); Sodium Level 142 mmol/L (136-145)
--- NOTE | 2019-02-14 02:49 | ED.RN ---
PT ARRIVES TO ED INCONTINENT OF URINE AND STOOL. PT CLEANED AND PLACED IN NEW ATTENDS. PUREWICK PLACED. PT WITH BRUISING NOTED THROUGHOUT UPPER EXTREMITIES BILATERALLY. PT D/C FROM [facility] ON 02/13/2019 FOR SEPSIS AND PNEUMONIA. PT REPORTS WOUNDS ON BILATERAL LOWER EXTREMITIES. PT WITH BOTH LEGS JASMINE WRAPPED AND BANDAGED FROM FACILITY.
--- NOTE | 2019-02-14 02:51 | RAD_ITS ---
STUDY: X-RAY CHEST REASON FOR EXAM: Female, 74 years old. Preoperative evaluation TECHNIQUE: Single AP portable view of the chest. COMPARISON: 02/12/2019 FINDINGS: Atelectasis versus scar at the left midlung base. Mild nodular patchy airspace opacity in the right mid to upper lung which is new. No pleural effusion or pneumothorax. Borderline cardiomegaly, unchanged. Median sternotomy wires and coronary artery bypass graft clips noted. Normal mediastinum and alee. Normal visualized pulmonary arteries. Atherosclerotic plaque of the thoracic aorta. There are diffuse degenerative changes of the visualized thoracic spine. Normal visualized ribs, clavicles, and shoulders. There is no demonstrated abnormality of the visualized soft tissue structures of the upper abdomen. RAD/Chest 1 View (Portable) IMPRESSION: Patchy nodular airspace opacity in the right mid to upper lung, present potentially representing developing infiltrate versus contusion Electronically Signed: Adalberto Diop MD at 3:07 EST Tel , Service support ,
--- NOTE | 2019-02-14 03:41 | ED.VISSUMM ---
- ER Visit Summary Date of Service: 02/14/19 Chief Complaint: Fall History of Present Illness: The patient is a 74 F presenting after mechanical fall. Patient states that she was trying to get up to use the bathroom. She normally uses a walker. The walker was across the room where she was unable to reach it. She fell onto her right side. She did hit her head but did not lose consciousness. She was recently admitted 02/06-02/13/2019 for community acquired pneumonia and sepsis. She completed a 7-day course of meropenem while she was in the hospital. She was RSV positive at that time. She has had a cough. She denies chest pain or shortness of breath. She complains of right hip pain. Denies other complaints. Physical Examination: Vitals are stable. Patient is afebrile. Alert no acute distress. HEENT exam is unremarkable. Neck is nontender Lungs are clear and equal bilaterally. Heart is regular rate and rhythm. Abdomen is soft nontender nondistended. Extremities right hip tenderness, right lower extremity externally rotated and shortened. Skin is warm and dry. No focal neurologic deficit. Remainder of exam is unremarkable. Emergency Department Course and Treatment: CBC unremarkable. Chemistries show glucose 137, BUN 28, creatinine 1.18. CT head shows no acute process. Right hip x-ray shows comminuted intertrochanteric right femoral fracture. Moderate bilateral hip osteoarthritic change with mild associated degenerative change of bilateral sacroiliac joints. Chest xray shows patchy nodular airspace opacity in the right mid to upper lung. Discussed with Dr. Olmedo and the hospitalist for admission. Disposition: Admission Impression: Right intertrochanteric fracture status post mechanical fall This note was generated with [employer] dictation software. It may contain incorrect words, spelling, and punctuation that were not noted in review of the chart prior to signing ED Disposition - Plan for ED Patient: Referrals: Uriel Mac MD [Primary Care Provider] -
[2019-02-14] MEDS: fentaNYL 100 MCG/2 ML Ampul 50 MCG IV (04:04)
--- NOTE | 2019-02-14 04:22 | PCM.HP.STD ---
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: without senior living use Diabetes mellitus complication status: with other specified complication Qualified Code(s): E11.69 - Type 2 diabetes mellitus with other specified complication (5) Diastolic CHF Status: Chronic Qualifiers: Heart failure chronicity: chronic Qualified Code(s): I50.32 - Chronic diastolic (congestive) heart failure History of Present Illness Date of Admission: 02/14/19 Chief Complaint: Fall, hip pain The patient is a 74 year old F who was just discharged on 02/13/19 after long hospitalization for sepsis secondary to community-acquired pneumonia, acute on chronic diastolic CHF to the residential. Patient arrived at the residential and was in bed when she felt like she needed to go use the bathroom. Her walker was on one side of the room and she attempted to walk to the bathroom holding onto the bed. She lost her balance and fell down with resultant right hip pain. Vitals in the ED showed temperature 98.5 F, heart rate 74, blood pressure 153/67, respiratory rate 18, SPO2 was 90% on 2 L of oxygen. WBC count was 10.0, hemoglobin 11.0, platelet count of 37, BMP was remarkable for BUN of 28, creatinine 1.18, which is about her baseline. CT Scan of the head showed no acute intracranial abnormality. Moderate bilateral periventricular and subcortical white matter small vessel disease was seen. Wrist x-ray showed patchy nodular airspace opacity in the right mid to upper lung. X-ray of the right hip shows comminuted and subtrochanteric right femoral fracture. Orthopedic surgery has been consulted from the ED. Past Medical History Past Medical History (Chronic Problems): Chronic Problems (Last Reviewed 02/07/19 @ 00:24 by Oziel Angel MD) Venous insufficiency of both lower extremities (Chronic) Chronic GI bleeding (Chronic) GERD (gastroesophageal reflux disease) (Chronic) Dementia (Chronic) Restrictive airway disease (Chronic) LAURITA (obstructive sleep apnea) (Chronic) Essential hypertension (Chronic) Type 2 diabetes mellitus (Chronic) Diastolic CHF (Chronic) Iron deficiency anemia (Chronic) etiology unknown Ulcer of right lower extremity with fat layer exposed (Chronic) Ulcer of left lower extremity with fat layer exposed (Chronic) PVD (peripheral vascular disease) (Chronic) Presence of stent in coronary artery (Chronic ~08/29/12) PTCA/stent to CX; PTCA/Stent PTCA/stent to prox RCA 05/06; PTCA/LILY in mid to distal RCA 08/29/12 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) PTCA/stent to CX; PTCA/Stent PTCA/stent to prox RCA 05/06; PTCA/LILY in mid to distal RCA 08/29/12; CABG x2 ARREGUIN tp LAD and SVG to OM2 01/02/11 S/P CABG (coronary artery bypass graft) (Chronic ~01/02/11) CABG x2 ARREGUIN tp LAD and SVG to OM2 01/02/11 Paroxysmal atrial fibrillation (Chronic) Hyperlipidemia (Chronic) Medical History: Medical History (Last Reviewed 02/07/19 @ 00:24 by Oziel Angel MD) Essential hypertension (Chronic) I10 Type 2 diabetes mellitus (Chronic) E11.9 Ulcer of right lower extremity with fat layer exposed (Chronic) L97.912 Ulcer of left lower extremity with fat layer exposed (Chronic) L97.922 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) I25.10 PTCA/stent to CX; PTCA/Stent PTCA/stent to prox RCA 05/06; PTCA/LILY in mid to distal RCA 08/29/12; CABG x2 ARREGUIN tp LAD and SVG to OM2 01/02/11 Paroxysmal atrial fibrillation (Chronic) I48.0 Hyperlipidemia (Chronic) E78.5 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 Diabetic ulcer of both lower extremities E11.622, L97.919, L97.929 History of DVT (deep vein thrombosis) Z86.718 Trigeminal neuralgia G50.0 Multiple sclerosis G35 LAURITA (obstructive sleep apnea) G47.33 Peripheral vascular disease I73.9 Venous insufficiency of both lower extremities I87.2 Allergies codeine Allergy (Unknown, Verified 02/14/19 01:37) Hives cefazolin Allergy (Verified 02/14/19 01:37) Rash ciprofloxacin [From Cipro] Allergy (Verified 02/14/19 01:37) Hives ciprofloxacin HCl [From Cipro] Allergy (Verified 02/14/19 01:37) Hives Latex, Natural Rubber Allergy (Verified 02/14/19 01:37) Rash Penicillins [PCN] Allergy (Verified 02/14/19 01:37) Hives vancomycin Allergy (Verified 02/14/19 01:37) Angioedema adhesive tape Adverse Reaction (Verified 02/14/19 01:37) Rash Home Medications: Ambulatory Orders Medication Instructions Recorded Amiodarone HCl 200 mg PO DAILY 04/09/18 Duloxetine HCl 60 mg PO DAILY 04/09/18 Magnesium Oxide [Mag-Ox 400] 400 mg PO BID 04/09/18 Metoprolol Tartrate [Lopressor 50 mg PO BID 04/09/18 (beta man)] Pantoprazole Sodium [Protonix] 40 mg PO BID 04/09/18 Ergocalciferol (Vitamin D2) 50,000 unit PO MO 05/22/18 [Vitamin D2] Donepezil HCl 5 mg PO QHS 08/19/18 Potassium Chloride [Klor-Con M20] 20 meq PO BID 08/19/18 ferrous sulfate 325 mg (65 mg 325 mg PO DAILY 09/25/18 iron) tablet,delayed release Amlodipine [Norvasc] 2.5 mg PO DAILY 12/13/18 hydrALAZINE [Apresoline] 50 mg PO TID 01/04/19 Acetaminophen [Tylenol Tablet] 650 mg PO Q6H PRN PRN tab 01/08/19 Gabapentin 600 mg PO BID 02/06/19 Oxycodone HCl 5 mg PO Q4H PRN PRN 02/06/19 Apixaban [Eliquis] 2.5 mg PO BID 02/07/19 Furosemide [Lasix] 40 mg PO BID@1000,1800 #90 tab 02/13/19 Ipratropium/Albuterol Sulfate 3 ml INHALATION [id number] #30 02/13/19 [Duoneb] ampul.neb Surgical History: Surgical History (Last Updated 02/10/19 @ 08:00 by Kary Monk MD) S/P CABG (coronary artery bypass graft) (Chronic) Onset Date: ~01/02/11 Z95.1 CABG x2 ARREGUIN tp LAD and SVG to OM2 01/02/11 History of cataract surgery Z98.49 History of cholecystectomy Z98.890, Z90.49 History of hernia repair Z98.890, Z87.19 History of tonsillectomy and adenoidectomy Z98.890 History of total hysterectomy Z98.890, Z90.710 Presence of coronary angioplasty implant and graft Onset Date: ~08/29/12 Z95.5 PTCA/stent to CX; PTCA/Stent PTCA/stent to prox RCA 05/06; PTCA/LILY in mid to distal RCA 08/29/12 Surgical History: angioplasty, appendectomy, cholecystectomy, coronary bypass surgery, hysterectomy, tonsillectomy, - Psychiatric History: No 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 hx HOME HEALTH TRAVEL OT History: No pertinent HOME HEALTH TRAVEL OT history Lives: Alf Smoking Status: Former smoker Tobacco Use: Cigarettes Alcohol: None Drugs: None - *Family History Maternal Family History: Family History (Last Reviewed 02/07/19 @ 01:17 by Oziel Angel MD) Father Heart disease Cancer Mother Hypertension Cancer Breast cancer Brother Diabetes Hypertension History Items: Cancer - breast cancer, Heart Disease, Hypertension Paternal Family History: Family History (Last Reviewed 02/07/19 @ 01:17 by Oziel Angel MD) Father Heart disease Cancer Mother Hypertension Cancer Breast cancer Brother Diabetes Hypertension History Items: Cancer, Heart Disease, Hypertension, - - skin cancer. Sibling Family History: Family History (Last Reviewed 02/07/19 @ 01:17 by Oziel Angel MD) Father Heart disease Cancer Mother Hypertension Cancer Breast cancer Brother Diabetes Hypertension History Items: Diabetes Review of Systems Constitutional: Reports: Malaise, Weakness, Fatigue. Denies: Anorexia, Chills, Fever, Night Sweats, Weight Change Eyes: Denies: Blurred vision, Cataracts, Conjunctivae Inflammation, Pain, Redness HEENT: Denies: Difficulty Hearing, Difficulty Swallowing, Head Aches, Hearing Changes, Sinus Congestion, Sinus Drainage Cardiovascular: Denies: Chest Pain, Claudication, Orthopnea, Palpitations, Paroxysmal Noc. Dyspnea Respiratory: Reports: Shortness of Breath, Shortness of breath at rest, Shortness of breath upon exertion. Denies: Cough, Sputum production Gastrointestinal: Denies: Abdominal Pain, Constipation, Nausea, Vomiting Genitourinary: Denies: Dysuria, Frequency, Incontinence Gynecological: Denies: Breast symptoms, Excessively long or heavy periods, Sexual concerns Musculoskeletal: Reports: Joint Pain, Joint swelling, Joint Tenderness, Leg Pain. Denies: Joint stiffness Skin: Denies: Dryness, Jaundice, Pruritis, Rash, Wounds Neurological: Denies: Difficulty swallowing, Focal weakness, Numbness, Tingling Psychiatric: Denies: Anxiety, Depression, Homicidal Ideations, Suicidal Ideations Hematologic/ Lymphatic: Denies: Easy Bruising, Easy Bleeding VTE Information - Inpt Only VTE Present on Admission: No VTE Pharm Prophylaxis ordered?: Yes - Physical Exam Vitals/I&O's: Vital Signs Temp Pulse Resp BP Pulse Ox 98.5 F 70 17 171/73 H 94 02/14/19 01:38 02/14/19 03:38 02/14/19 03:38 02/14/19 03:38 02/14/19 03:38 Oxygen Flow Rate (L/min) 3 Oxygen Delivery Method Room Air Weight: 90.3 kg Body Mass Index (BMI) 38.8 Finger Stick Blood Glucose 187 General: Alert, Oriented x3, Cooperative, No apparent distress HEENT: Atraumatic, PERRLA, EOMI, Normocephalic Oral: Moist Mucosa Neck: Supple Lungs: Clear to auscultation, Normal air movement Cardiovascular: Regular rate, Regular Rhythm, Normal S1, Normal S2, No murmurs Abdomen: Bowel Sounds Present, Soft, Non Tender, Non-Distended, No Hepato-splenomegaly Extremities: No edema Skin: No rashes, No breakdown Musculoskeletal: Tenderness - external rotation of right leg with shortening Lymphatic: No Cervical, Supraclavicular, or Inguinal Adenopathy Neurological: Cranial nerves II-XII grossly intact, Neuro grossly intact Psych/Mental Status: Normal Affect, Appropriate Laboratory Results 02/14/19 01:50: WBC 10.0, RBC 4.05 L, Hgb 11.0 L, Hct 36.9 L, MCV 91.1, MCH 27.2, MCHC 29.8 L, RDW Std Deviation 51.1 H, RDW Coeff of Carissa 15.4 H, Plt Count 337, MPV 10.2, Immature Gran % (Auto) 3.200 H, Neut % (Auto) 66.1, Lymph % (Auto) 20.8, Parmer % (Auto) 6.6, Eos % (Auto) 3.1, Baso % (Auto) 0.2, Absolute Neuts (auto) 6.6, Absolute Lymphs (auto) 2.07, Nucleated RBC % 0 02/14/19 01:50: Sodium 142, Potassium 3.9, Chloride 102, Carbon Dioxide 37.0 H, Anion Gap 3 L, BUN 28 H, Creatinine 1.18 H, Estim Creat Clear Calc 29.59, Est GFR (MDRD) Af Amer 57 L, Est GFR (MDRD) Non-Af 48 L, BUN/Creatinine Ratio 23.7 H, Glucose 137 H, Calcium 9.1 Assessment/Plan 74 year old F comes in after a fall whilst trying to get to the bathroom without her walker. 1. Acute right comminuted femoral fracture status post mechanical fall Patient uses a walker at baseline but was walking with a walker when she fell Orthopedic surgery consulted from the emergency Patient is at above average risk for planned procedure. She recently has had a pneumonia and has been treated for CHF. These are likely to affect her outcomes after surgery 2. Recent pneumonia, completed 7 days of meropenem, infiltrate seen on chest x-ray, no fevers Will monitor for now 3. Chronic diastolic CHF, with an acute exacerbation, continue on Lasix 4. CAD status post CABG, continue on Eliquis, metoprolol. 5. Paroxysmal atrial fibrillation, on amiodarone, metoprolol and Eliquis 6. LAURITA, non compliant with Bipap 7. DVT PPx- on Eliquis Code Visit Inpatient E&M: 09072 Init Hosp L3
--- NOTE | 2019-02-14 04:32 | EKG12_ITS ---
Test Reason : FALL Blood Pressure : / mmHG Vent. Rate : 071 BPM Atrial Rate : 071 BPM P-R Int : 162 ms QRS Dur : 080 ms QT Int : 420 ms P-R-T Axes : 025 022 099 degrees QTc Int : 456 ms Normal sinus rhythm Nonspecific ST and T wave abnormality Abnormal ECG Confirmed by REBECCA HATCH, CHERYL ([id number]), movie editor BOBBY VELA ([id number]) on 02/17/2019 10:19:52 AM Referred By: Yasmine Olivier Confirmed By:CHERYL FERNANDEZ MD
[2019-02-14 07:05] LABS: Bedside Glucose 105 mg/dL (70-110)
[2019-02-14] MEDS: 0.9% Normal Saline 1,000 ML 75 ML IV (07:06)
[2019-02-14] MEDS: hydrALAZINE 50 MG Tablet PO ×2 (07:35→19:01)
--- NOTE | 2019-02-14 08:16 | NURSING ---
Dr. Chand talked with Storm Escobar RN and asked Storm to get Medical Clearance for pending surgery planned for this afternoon. This nurse texted Dr. Gonzalez via [employer] and he did not respond but opened the text. When Dr. Gonzalez came to the floor, this nurse asked if he had seen the text. Dr. Gonzalez said he did but did not want to be responsible for medical clearance. Dr. Gonzalez said he would see the pt and write a report. Storm Sutherland aware.
--- NOTE | 2019-02-14 08:59 | NURSING ---
wound photo: left medial lower leg
--- NOTE | 2019-02-14 09:00 | NURSING ---
wound photo: right medial lower leg
--- NOTE | 2019-02-14 09:01 | NURSING ---
wound photo: right lateral lower leg
--- NOTE | 2019-02-14 09:12 | PN_ITS ---
Progress Note This is a 74 years old female patient readmitted because of mechanical fall, found to have comminuted intertrochanteric right femur fracture. Patient was discharged from the hospital 3 days ago after admission for community-acquired pneumonia with sepsis, probable acute diastolic CHF and acute hypoxic respiratory failure. During that hospital stay, patient completed 7 days of IV meropenem. She was discharged on oxygen as well as BiPAP nightly. She was tested positive for RSV A. Blood culture showed no growth. She was discharged on Lasix 40 mg p.o. twice daily. Chest x-ray reviewed and revealed patchy airspace disease on the both upper lobes and compared to her previous chest x- ray during the last admission, her chest x-ray looked slightly better. Preoperative evaluation: 74 years old female patient with past history of chronic diastolic CHF, CAD status post CABG,, paroxysmal A. fib, obstructive sleep apnea, dementia, chronic bilateral lower extremity ulcers/wounds without evidence of acute infection as well as recent admission for pneumonia with sepsis and CHF complicated by acute hypoxic respiratory failure. Based on her age, past medical history, serum creatinine and functional status, her estimated risk for perioperative myocardial infarction or cardiac arrest is 2.05%. Chest x-ray and EKG reviewed. 2D echocardiogram done on February 10, 2019 and revealed normal LV size and function, ejection fraction was 65%. Her risk for serious postoperative complications around 27% above average based on ACS NSQIP surgical risk calculator. Patient will be at high risk for intraoperative and postoperative complications. No indication for further cardiac work-up or noncardiac work-up. We will proceed with surgery. STROKE Vital Signs/Narrative: Vital Signs Temp Pulse Resp BP Pulse Ox 02/14/19 07:35 74 136/57 H 02/14/19 06:52 98.5 F 74 18 136/57 H 94
--- NOTE | 2019-02-14 09:19 | CASEMGMT ---
Addendum entered by Digna Palumbo 02/14/19 10:34: JAGDEEP faxed available clinicals to [facility]. Original Note: Social Work Note Pt is listed as being from [facility]. SW familiar with pt as pt was just discharged to SNF yesterday. SW met with pt. Pt states that she had to go to the bathroom and couldn't find the call light so she got up by herself. SW explained the importance of calling for staff to assist. Pt confirms that she is from [facility] and her plan is to return. SW informed pt that she will need pre-cert to return and will likely be at [facility] throughout the weekend for pre-cert. JAGDEEP placed a call to Quiana at [facility] and left message updating her that pt is at [facility]. JAGDEEP updated Quiana that pt is scheduled for surgery today at 2:15pm so this worker is not sure if this worker will have PT/OT notes available today to submit for pre-cert. Plan: [facility] pending pre-cert Digna Palumbo CERTIFIED COMPOSITES TECHNICIAN, ELECTRIC TRUCK DRIVER
[2019-02-14] MEDS: Ipratropium/Albuterol Sulfate 3 ML AMPUL.NEB INHALATION ×2 (10:43→18:50)
[2019-02-14 12:21] LABS: Bedside Glucose 81 mg/dL (70-110)
[2019-02-14] MEDS: 0.9% Normal Saline 1,000 ML 60 ML IV ×2 (12:41→22:24)
[2019-02-14] MEDS: Morphine 2 MG/ML Syringe IV (13:42)
--- NOTE | 2019-02-14 13:44 | CPS ---
started by nursing
--- NOTE | 2019-02-14 15:33 | PCA ---
pt off floor
--- NOTE | 2019-02-14 15:40 | CON.PCM_ITS ---
Reason for Consult Date of Consultation: 02/14/19 History of Present Illness: The patient is a 74 year old female with multiple medical problems including recent pneumonia, CHF that was recently transferred to an ECF. Early this morning she got up to walk without her walker or assistance and accidentally fel l in her room. She denies chest pain or shortness of breath. Denies head injury or loss of consciousness. Patient has been in ambulatory walker dependent for many years. [] Past Medical History Past Medical History (Chronic Problems): Chronic Problems (Last Reviewed 02/07/19 @ 00:24 by Oziel Angel MD) Venous insufficiency of both lower extremities (Chronic) Chronic GI bleeding (Chronic) GERD (gastroesophageal reflux disease) (Chronic) Dementia (Chronic) Restrictive airway disease (Chronic) LAURITA (obstructive sleep apnea) (Chronic) Essential hypertension (Chronic) Type 2 diabetes mellitus (Chronic) Diastolic CHF (Chronic) Iron deficiency anemia (Chronic) etiology unknown Ulcer of right lower extremity with fat layer exposed (Chronic) Ulcer of left lower extremity with fat layer exposed (Chronic) PVD (peripheral vascular disease) (Chronic) Presence of stent in coronary artery (Chronic ~08/29/12) PTCA/stent to CX; PTCA/Stent PTCA/stent to prox RCA 05/06; PTCA/LILY in mid to distal RCA 08/29/12 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) PTCA/stent to CX; PTCA/Stent PTCA/stent to prox RCA 05/06; PTCA/LILY in mid to distal RCA 08/29/12; CABG x2 ARREGUIN tp LAD and SVG to OM2 01/02/11 S/P CABG (coronary artery bypass graft) (Chronic ~01/02/11) CABG x2 ARREGUIN tp LAD and SVG to OM2 01/02/11 Paroxysmal atrial fibrillation (Chronic) Hyperlipidemia (Chronic) Medical History: Medical History (Last Reviewed 02/07/19 @ 00:24 by Oziel Angel MD) Essential hypertension (Chronic) I10 Type 2 diabetes mellitus (Chronic) E11.9 Ulcer of right lower extremity with fat layer exposed (Chronic) L97.912 Ulcer of left lower extremity with fat layer exposed (Chronic) L97.922 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) I25.10 PTCA/stent to CX; PTCA/Stent PTCA/stent to prox RCA 05/06; PTCA/LILY in mid to distal RCA 08/29/12; CABG x2 ARREGUIN tp LAD and SVG to OM2 01/02/11 Paroxysmal atrial fibrillation (Chronic) I48.0 Hyperlipidemia (Chronic) E78.5 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 Diabetic ulcer of both lower extremities E11.622, L97.919, L97.929 History of DVT (deep vein thrombosis) Z86.718 Trigeminal neuralgia G50.0 Multiple sclerosis G35 LAURITA (obstructive sleep apnea) G47.33 Peripheral vascular disease I73.9 Venous insufficiency of both lower extremities I87.2 Allergies codeine Allergy (Unknown, Verified 02/14/19 01:37) Hives cefazolin Allergy (Verified 02/14/19 01:37) Rash ciprofloxacin [From Cipro] Allergy (Verified 02/14/19 01:37) Hives ciprofloxacin HCl [From Cipro] Allergy (Verified 02/14/19 01:37) Hives Latex, Natural Rubber Allergy (Verified 02/14/19 01:37) Rash Penicillins [PCN] Allergy (Verified 02/14/19 01:37) Hives vancomycin Allergy (Verified 02/14/19 01:37) Angioedema adhesive tape Adverse Reaction (Verified 02/14/19 01:37) Rash Home Medications: Ambulatory Orders Medication Instructions Recorded RX: Amiodarone HCl 200 mg PO DAILY 04/09/18 RX: Duloxetine HCl 60 mg PO DAILY 04/09/18 RX: Magnesium Oxide [Mag-Ox 400] 400 mg PO BID 04/09/18 RX: Metoprolol Tartrate [Lopressor 50 mg PO BID 04/09/18 (beta tommy)] RX: Pantoprazole Sodium [Protonix] 40 mg PO BID 04/09/18 RX: Ergocalciferol (Vitamin D2) 50,000 unit PO MO 05/22/18 [Vitamin D2] RX: Donepezil HCl 5 mg PO QHS 08/19/18 RX: Potassium Chloride [Klor-Con 20 meq PO BID 08/19/18 M20] ferrous sulfate 325 mg (65 mg 325 mg PO DAILY 09/25/18 iron) tablet,delayed release RX: Amlodipine [Norvasc] 2.5 mg PO DAILY 12/13/18 RX: hydrALAZINE [Apresoline] 50 mg PO TID 01/04/19 RX: Acetaminophen [Tylenol Tablet] 650 mg PO Q6H PRN PRN tab 01/08/19 RX: Gabapentin 600 mg PO BID 02/06/19 RX: Oxycodone HCl 5 mg PO Q4H PRN PRN 02/06/19 RX: Apixaban [Eliquis] 2.5 mg PO BID 02/07/19 RX: Furosemide [Lasix] 40 mg PO BID@1000,1800 #90 tab 02/13/19 RX: Ipratropium/Albuterol Sulfate 3 ml INHALATION [id number] #30 02/13/19 [Duoneb] ampul.neb Surgical History: Surgical History (Last Updated 02/10/19 @ 08:00 by Kary Monk MD) S/P CABG (coronary artery bypass graft) (Chronic) Onset Date: ~01/02/11 Z95.1 CABG x2 ARREGUIN tp LAD and SVG to OM2 01/02/11 History of cataract surgery Z98.49 History of cholecystectomy Z98.890, Z90.49 History of hernia repair Z98.890, Z87.19 History of tonsillectomy and adenoidectomy Z98.890 History of total hysterectomy Z98.890, Z90.710 Presence of coronary angioplasty implant and graft Onset Date: ~08/29/12 Z95.5 PTCA/stent to CX; PTCA/Stent PTCA/stent to prox RCA 05/06; PTCA/LILY in mid to distal RCA 08/29/12 Surgical History: angioplasty, appendectomy, cholecystectomy, coronary bypass surgery, hysterectomy, tonsillectomy, - Psychiatric History: No 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 hx 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 Lives: [facility] Smoking Status: Former smoker Tobacco Use: Cigarettes Alcohol: None Drugs: None - *Family History Maternal Family History: Family History (Last Reviewed 02/07/19 @ 01:17 by Oziel Agnel MD) Father Heart disease Cancer Mother Hypertension Cancer Breast cancer Brother Diabetes Hypertension History Items: Cancer - breast cancer, Heart Disease, Hypertension Paternal Family History: Family History (Last Reviewed 02/07/19 @ 01:17 by Oziel Angel MD) Father Heart disease Cancer Mother Hypertension Cancer Breast cancer Brother Diabetes Hypertension History Items: Cancer, Heart Disease, Hypertension, - - skin cancer. Sibling Family History: Family History (Last Reviewed 02/07/19 @ 01:17 by Oziel Angel MD) Father Heart disease Cancer Mother Hypertension Cancer Breast cancer Brother Diabetes Hypertension History Items: Diabetes Objective: Right hip has shortening and external rotation. Right hip has pain on palpation of the hip. No calf pain or swelling. Negative Homans sign. No left hip pain. Legs are neurovascular intact. Does have ulcerations on her upper and lower extremities superficial. X-rays reviewed showing an intertrochanteric fracture. Laboratory reviewed Discussed with her nurse and anesthesia department - Physical Exam Vitals/I&O's: Vital Signs Temp Pulse Resp BP Pulse Ox 98.7 F 72 16 134/65 H 95 02/14/19 13:46 02/14/19 13:46 02/14/19 13:46 02/14/19 13:46 02/14/19 13:46 Oxygen Flow Rate (L/min) 2 Oxygen Delivery Method Nasal Cannula Weight: 86 kg Body Mass Index (BMI) 37.0 Finger Stick Blood Glucose 187 Intake and Output for Last 24 Hours 02/12/19 02/13/19 02/14/19 23:59 23:59 23:59 Intake Total 125 / 125 Output Total 750 / 750 Balance -625 / -625 Laboratory Results 02/14/19 01:50: WBC 10.0, RBC 4.05 L, Hgb 11.0 L, Hct 36.9 L, MCV 91.1, MCH 27.2, MCHC 29.8 L, RDW Std Deviation 51.1 H, RDW Coeff of Carissa 15.4 H, Plt Count 337, MPV 10.2, Immature Gran % (Auto) 3.200 H, Neut % (Auto) 66.1, Lymph % (Auto) 20.8, [place] % (Auto) 6.6, Eos % (Auto) 3.1, Baso % (Auto) 0.2, Absolute Neuts (auto) 6.6, Absolute Lymphs (auto) 2.07, Nucleated RBC % 0 02/14/19 01:50: Sodium 142, Potassium 3.9, Chloride 102, Carbon Dioxide 37.0 H, Anion Gap 3 L, BUN 28 H, Creatinine 1.18 H, Estim Creat Clear Calc 29.59, Est GFR (MDRD) Af Amer 57 L, Est GFR (MDRD) Non-Af 48 L, BUN/Creatinine Ratio 23.7 H , Glucose 137 H, Calcium 9.1 02/14/19 06:49: POC Glucose 105 02/14/19 07:14: Blood Type A POSITIVE, Antibody Screen NEGATIVE 02/14/19 12:15: POC Glucose 81 02/14/19 15:30: POC Glucose Pending Current Medications Acetaminophen (Tylenol) 650 mg PO Q6H PRN PRN PRN Reason: Pain Score 1-3/Temp > 100.7 F Albuterol/Ipratropium (Duoneb) 3 ml INHALATION Q4HWA.RT [facility] Last Admin: 02/14/19 10:43 Dose: 3 ml Documented by: Amiodarone HCl (Cordarone) 200 mg PO DAILY [facility] Amlodipine Besylate (Norvasc) 2.5 mg PO DAILY MELISSA Apixaban (Eliquis) 2.5 mg PO BID MEL[facility]SA Donepezil HCl (Aricept) 5 mg PO QHS [facility]SA Duloxetine HCl (Cymbalta) 60 mg PO DAILY [facility] Ergocalciferol (Vitamin D) 50,000 unit PO Mo@1000 MELISSA Ferrous Sulfate (Ferrous Sulfate) 325 mg PO DAILY@1200 MEL[facility]SA Furosemide (Lasix) 40 mg PO BID@1000,1800 MELISSA Gabapentin (Neurontin) 600 mg PO BID MELISSA Glucagon () 1 mg IM .X1 PRN PRN Reason: Hypoglycemia Hydralazine HCl (Apresoline) 50 mg PO TID [facility] Last Admin: 02/14/19 07:35 Dose: 50 mg Documented by: Sodium Chloride () 250 mls @ 15 mls/hr IV .[id number] PRN PRN Reason: Saline Flush Sodium Chloride () 250 mls @ 15 mls/hr IV .[id number] PRN PRN Reason: Additional IVPB Infusion Dextrose (Dextrose 10%-Water) 250 mls @ 999 mls/hr IV .Q16M PRN; Protocol PRN Reason: HYPOGLYCEMIA Sodium Chloride () 1,000 mls @ 60 mls/hr IV .[id number] [facility] Last Admin: 02/14/19 12:41 Dose: 60 mls/hr Documented by: Insulin Human Lispro (Humalog Kwikpen (Bkc)) 0 unit SC ACHS [facility]; Protocol Last Admin: 02/14/19 12:21 Dose: Not Given Documented by: Magnesium Oxide (Mag-Ox 400) 400 mg PO BID MELISSA Metoprolol Tartrate (Lopressor (Beta Tommy)) 50 mg PO BID MELISSA Morphine Sulfate () 1 - 2 mg IV Q3H PRN PRN PRN Reason: Pain Score 4-10/10 Last Admin: 02/14/19 13:42 Dose: 2 mg Documented by: Nutritional Formula (Lactose Free) (Glucerna Shake) 120 ml PO 4X/DAY MELISSA Last Admin: 02/14/19 13:59 Dose: Not Given Documented by: Ondansetron HCl (Zofran) 4 mg IV Q8H PRN PRN PRN Reason: NAUSEA/VOMITING Oxycodone HCl (Oxyir) 5 mg PO Q4H PRN PRN PRN Reason: Pain Score 1-10/10 Pantoprazole Sodium (Protonix) 40 mg PO BID [facility] Potassium Chloride (K-Dur) 20 meq PO BIDCM MELISSA Sodium Chloride () 10 - 40 ml IV UD PRN PRN Reason: SALINE FLUSH Sodium Hypochlorite (Dakins Solution 0.25% (1/2 Strength)) 1 applic TOPICAL BID MELISSA; Protocol Assessment/Plan Right hip intertrochanteric fracture, surgical and nonsurgical options discussed with her and her family. They understand she is at high risk for surgery based on her underlying medical conditions, recent pneumonia, CHF, Eliquis use. Understand we cannot do a spinal based on Eliquis. We could wait 2 days but this would increase her risk of surgery as well. We decided to proceed with right hip surgery today. Case had been discussed with the anesthesia department. Plan open reduction internal fixation with short intramedullary nail Risk of surgery including but not limited to from operative or postoper ative complications. Risk of anesthetic complications such as heart attacks, strokes, seizures, or . Risk of infections. Risk of damage to nerves arteries tendons. Risk of inadvertent fractures or dislocations. Risk of bone or wound healing complications. Possibility of nonunion malunion pain stiffness weakness. Possible need for further surgery such as hardware removal. Risk of DVT PE and other potential complications could lead to or disability explained. No guarantees were stated or implied. All of their questions were answered. Appropriate informed consent was obtained and signed for surgical intervention. Continue on the medical service. We will resume Julio C tomorrow. Clindamycin for perioperative antibiotic based on her multiple drug allergies. Has been discussed with the pharmacy department
[2019-02-14 15:41] LABS: Bedside Glucose 92 mg/dL (70-110)
--- NOTE | 2019-02-14 16:15 | RAD_ITS ---
STUDY: X-RAY - PELVIS AND RIGHT HIP REASON FOR EXAM: Female, 74 years old. ORIF GAMMA NAIL, RIGHT SIDE TECHNIQUE: 15 intraoperative views of the pelvis and hip. 116.7 seconds of fluoroscopy time. COMPARISON: Prior pelvis and hip radiographs of February 14, 2019 FINDINGS: Intraoperative images demonstrate anatomic realignment of the subcapital fracture and placement of a gamma nail. One distal interlocking screw. RAD/Hip Min 2 Views (Portable) IMPRESSION: Intraoperative demonstration of anatomic realignment of the subcapital fracture and placement of a gamma nail. No untoward bone, joint or hardware findings. Electronically Signed: Cecilia Marsh MD at 0:02 EST , Service support ,
--- NOTE | 2019-02-14 16:27 | CHAPLAIN ---
patient and bed were out of the room when visit was attempted
--- NOTE | 2019-02-14 17:02 | PCM.OP.PRO ---
Procedure Report Date of Procedure: 02/14/19 Preoperative diagnosis: Right hip displaced intertrochanteric fracture Postoperative diagnosis: Same Title of operation: Right hip open reduction internal fixation, intramedullary nail fixation, locked Surgeon: Dr. David Chand Rejogger: May Servin PA-C Anesthesia: General, Dr. Madrid Medications: Clindamycin Complications none EBL: 200 cc Fluids in 300 cc Indications for surgery: Patient is an 74-year-old female sustained a hip fracture earlier today. Patient and their family explained diagnosis and treatment options. Patient evaluated by the medical services. Patient did wish to have surgery. Appropriate informed consent obtained and signed. Findings: Patient had a displaced intertrochanteric hip fracture. They underwent standard reduction, internal fixation using a Stalin short gamma nail. X-rays taken throughout. assistant department manager, physician assistant professor of archaeology, was utilized throughout the entire procedure. They were vital to the procedure from beginning to end. They help with patient transfer, patient padding and positioning, fracture reduction, maintenance of fracture reduction, internal fixation of implants, wound closure, bandage application, patient transfer. Without surgical processor, surgical time would have been significantly increased and surgical outcome could have been less optimal. Procedure: Patient was taken to the operating room. Placed under a general anesthetic and transferred to the operating table with the help of the assistant professor of archaeology. With the help of the assistant professor of archaeology patient was prepped and padded for surgery. Operative side foot was well-padded and placed in the traction boot. Uninjured lower extremity was abducted and flexed out of harms way. KENDRA hose and SCDs utilized. Fluoroscopy was brought in. With the help of the assistant professor of archaeology and manipulation of the limb, reduction was nicely obtained as verified under AP lateral and oblique fluoroscopic images. . Operative hip/thigh was prepped padded draped in usual orthopedic sterile fashion for the procedure. Longitudinal incision was made just proximal to the greater trochanter. Taken through skin and subcutaneous tissue. Sharp awl was placed on the tip of the greater trochanter. Position verified under AP and lateral fluoroscopic images. This was then taken down inside the bone. Slightly bent ball-tipped guide james was then placed from the tip of the greater trochanter into the intra-medullary canal of the femur. Its position verified radiographically. Reamer was then done over the tip of this with the help of the assistant professor of archaeology holding the soft tissue protector appropriately. Once reaming was done we placed the short 125? angle device over the guidepin. This was easily introduced. Guide james removed. Outrigger device was utilized to position a guidepin from the lateral cortex of the femur across the fracture site and into the femoral head in a good position centrally, as noted on AP lateral and oblique fluoroscopic images. This was measured. Appropriate reaming done. Appreciate length lag screw was placed from the lateral cortex of the femur into the femoral head. A small amount of the screw was noted to be protruding laterally as planned. No cartilage penetration of the femoral head noted on any x-ray. Fracture was then compressed with the outrigger device. Proximal cap screw was placed by the assistant professor of archaeology seated down completely, confirmed, and then loosened one fourth turn. We then used the outrigger device to place distal cross locking screw under standard technique. This was confirmed to be of adequate length in good position on AP and lateral images. Outrigger device removed. Final set of AP and lateral proximal x-rays taken and saved. Incisions thoroughly irrigated. Closing by the assistant professor of archaeology with deep 0 Vicryl, mid layer 0 Vicryl, inverted 2-0 Vicryl, skin moe. Puncture wounds closed with inverted 2-0 Vicryl and moe. Xeroform 4 x 4's ABD tape applied. Patient was awoken from their anesthetic, transferred back to their own bed with the help of the assistant professor of archaeology and into recovery room in satisfactory condition. Patient will continue to be admitted to the hospital under the hospitalist service. This note was generated with Vyu dictation software. It may contain incorrect words, spelling, and punctuation that were not noted in checking the note before signing.
--- NOTE | 2019-02-14 17:36 | PCA ---
pt off floor
[2019-02-14 18:00] LABS: Bedside Glucose 112 mg/dL (70-110)
--- NOTE | 2019-02-14 18:27 | EKG12_ITS ---
Test Reason : AM EKG Blood Pressure : / mmHG Vent. Rate : 072 BPM Atrial Rate : 072 BPM P-R Int : 172 ms QRS Dur : 078 ms QT Int : 396 ms P-R-T Axes : 002 008 110 degrees QTc Int : 433 ms Normal sinus rhythm Nonspecific ST and T wave abnormality Abnormal ECG When compared with ECG of 14-FEB-2019 18:53, MANUAL COMPARISON REQUIRED, DATA IS UNCONFIRMED Confirmed by BLACK HATCH, PARDEEP ([id number]), scientific publications editor MARÍA RAE ([id number]) on 02/18/2019 10:31:08 AM Referred By: Yasmine Olivier Confirmed By:PARDEEP CLEANING MD
[2019-02-14] MEDS: amLODIPine 2.5 MG Tablet PO (19:01)
[2019-02-14] MEDS: DULoxetine Hcl 60 MG Capsule PO (19:01)
[2019-02-14] MEDS: Metoprolol Tartrate 50 MG Tablet PO (19:01)
[2019-02-14] MEDS: Pantoprazole Sodium 40 MG Tablet PO (19:01)
[2019-02-14] MEDS: Furosemide 40 MG Tablet PO (19:02)
[2019-02-14] MEDS: Amiodarone 200 MG Tablet PO (19:04)
[2019-02-14 21:46] LABS: Bedside Glucose 113 mg/dL (70-110)
[2019-02-14] MEDS: Glucerna Shake 120 ML LIQUID PO (22:20)
[2019-02-14] MEDS: Magnesium Oxide 400 MG Tablet PO (22:21)
[2019-02-14] MEDS: Donepezil HCl 5 MG Tablet PO (22:21)
[2019-02-14] MEDS: Gabapentin 600 MG Tablet PO (22:21)
[2019-02-14] MEDS: APIXABAN 2.5 MG TABLET PO (22:21)
[2019-02-14] MEDS: DAKIN'S SOL HALF STRENGTH (=0.25%) 1 APPLIC TOPICAL (22:22)
[2019-02-14] MEDS: oxyCODONE 5 MG Tablet PO (22:27)
[2019-02-15] VITALS (21 sets, daily range): BP systolic 99–114; BP diastolic 51–70; PULSE 60–97; RESP 12–22; TEMP 36.6–37.1; O2SAT 81–100
[2019-02-15] MEDS: Morphine 2 MG/ML Syringe IV (00:45)
--- NOTE | 2019-02-15 05:55 | EKG12_ITS ---
Test Reason : CP Blood Pressure : / mmHG Vent. Rate : 077 BPM Atrial Rate : 077 BPM P-R Int : 164 ms QRS Dur : 078 ms QT Int : 398 ms P-R-T Axes : 045 008 096 degrees QTc Int : 450 ms Normal sinus rhythm T wave abnormality, consider lateral ischemia Abnormal ECG When compared with ECG of 14-FEB-2019 04:42, MANUAL COMPARISON REQUIRED, DATA IS UNCONFIRMED Confirmed by BLACK HATCH, PARDEEP ([id number]), senior gis analyst MARÍA RAE ([id number]) on 02/18/2019 10:32:07 AM Referred By: Yasmine Olivier Confirmed By:PARDEEP CLEANING MD
[2019-02-15 06:55] LABS: Bedside Glucose 115 mg/dL (70-110)
[2019-02-15] MEDS: Ipratropium/Albuterol Sulfate 3 ML AMPUL.NEB INHALATION ×4 (07:08→19:00)
[2019-02-15] MEDS: Pantoprazole Sodium 40 MG Tablet PO ×2 (07:46→21:55)
[2019-02-15] MEDS: amLODIPine 2.5 MG Tablet PO (07:46)
[2019-02-15] MEDS: APIXABAN 2.5 MG TABLET PO ×2 (07:47→21:56)
[2019-02-15] MEDS: Furosemide 40 MG Tablet PO (07:47)
[2019-02-15] MEDS: Gabapentin 600 MG Tablet PO ×2 (07:47→21:55)
[2019-02-15] MEDS: DULoxetine Hcl 60 MG Capsule PO (07:47)
[2019-02-15] MEDS: Magnesium Oxide 400 MG Tablet PO ×2 (07:47→21:55)
[2019-02-15] MEDS: Metoprolol Tartrate 50 MG Tablet PO (07:47)
[2019-02-15] MEDS: Glucerna Shake 120 ML LIQUID PO ×4 (07:47→21:55)
[2019-02-15] MEDS: oxyCODONE 5 MG Tablet PO ×3 (07:54→21:56)
[2019-02-15] MEDS: Amiodarone 200 MG Tablet PO (07:55)
[2019-02-15] MEDS: Acetaminophen 325 MG Tablet 650 MG PO (07:55)
[2019-02-15 07:58] LABS: Absolute Lymphocyte Count 1.68 X10^3/uL (0.83-4.51); Absolute Neutrophil Count 8.4 X10^3/uL (2.0-7.7); Basophil# 0.04 X10^3/uL; Basophil% 0.3 % (0-1); Eosinophil# 0.48 X10^3/uL; Eosinophils% 4.1 % (0-5); Hematocrit 33.5 % (37-47); Hemoglobin 9.6 g/dL (12.0-15.0); Lymphocyte # 1.68 X10^3/ul (4.0); Lymphocyte % 14.5 % (19-41); Mean Corp Hgb Conc 28.7 g/dL (32-36); Mean Corpuscular Hgb 26.5 pg (27.0-32.0); Mean Corpuscular Volume 92.5 fL (81-99); Mean Platelet Vol. 10.1 fl (6.2-12.0); Monocyte% 6.9 % (0-10); NRBC Flagged by Analyzer 0 % (0-5); Neutrophil # 8.38 X10^3/uL (2.7-7.7); Neutrophil % 72.4 % (47-70); Platelet Count 326 K/mm3 (150-450); RBC Distribution Width CV 15.7 % (11.6-14.6); RBC Distribution Width SD 53.5 fl (35.1-43.9); Red Blood Count 3.62 M/mm3 (4.2-5.4); White Blood Count 11.6 K/mm3 (4.4-11.0)
[2019-02-15 08:14] LABS: ALB/GLOB Ratio 0.5 RATIO (0.9-2.4); AST(SGOT) 28 U/L (15-37); Alanine Aminotransfer ALT/SGPT 36 U/L (13-56); Alkaline Phosphatase 88 U/L (45-117); Anion Gap 4 (5-15); BUN 30 mg/dL (7-18); BUN/Creat Ratio 17.3 RATIO (10-20); Calcium,Total 8.8 mg/dL (8.5-10.1); Chloride 104 mmol/L (98-107); Creatinine, Serum 1.73 mg/dL (0.55-1.02); EST Glomerular Filtration Rate 31 mL/min (>60); Est Glom Filt Rate - Afr Amer 37 mL/min (>60); Estimated Creatinine Clearance 20.18 ml/min; Glucose 111 mg/dL (74-106); Potassium 4.4 mmol/L (3.5-5.1); Sodium Level 142 mmol/L (136-145)
[2019-02-15 08:32] LABS: International Normalized Ratio 1.3; Prothrombin Time (Protime)PT. 16.4 SECONDS (11.7-14.9)
--- NOTE | 2019-02-15 08:37 | PN.ORTHO_ITS ---
Subjective: Patient is postoperative day #1 from RIGHT hip open reduction internal fixation. She states her hip feels better now than before surgery. Still some pain if she moves it. Pain is controlled with medications. She had questions regarding discharge planning. Denies fever chills or systemic symptoms. Objective: Right hip bandages on clean and dry. 2 very small spots of dried blood. No significant thigh swelling. Clinically lower extremities are well aligned. Right hip flexion to 70 degrees with mild pain. Right hip internal and external rotation 10 degrees with mild pain. Left hip has better motion with less pain. No calf pain or swelling bilaterally. Pino wrap's are on the lower extremities. Good plantar flexion dorsiflexion toes and ankles. Legs are neurovascular intact. Laboratory work and vital signs reviewed - Physical Exam Vitals/I&O's: Vital Signs Temp Pulse Resp BP Pulse Ox 98.7 F 90 18 102/60 99 02/15/19 07:57 02/15/19 07:57 02/15/19 07:57 02/15/19 07:57 02/15/19 07:57 Oxygen Flow Rate (L/min) 3 Oxygen Delivery Method Nasal Cannula Weight: 85.4 kg Body Mass Index (BMI) 37.0 Finger Stick Blood Glucose 112 Intake and Output for Last 24 Hours 02/13/19 02/14/19 02/15/19 23:59 23:59 23:59 Intake Total 868 / 1108 1129 / 1129 Output Total 950 / 1100 400 / 400 Balance -82 / 8 729 / 729 Laboratory Results 02/14/19 07:14: Blood Type A POSITIVE, Antibody Screen NEGATIVE 02/14/19 12:15: POC Glucose 81 02/14/19 15:30: POC Glucose 92 02/14/19 17:56: POC Glucose 112 H 02/14/19 19:35: Troponin I < 0.015 02/14/19 21:36: POC Glucose 113 H 02/15/19 06:41: POC Glucose 115 H 02/15/19 07:25: WBC 11.6 H, RBC 3.62 L, Hgb 9.6 L, Hct 33.5 L, MCV 92.5, MCH 26.5 L, MCHC 28.7 L, RDW Std Deviation 53.5 H, RDW Coeff of Carissa 15.7 H, Plt Count 326, MPV 10.1, Immature Gran % (Auto) 1.800 H, Neut % (Auto) 72.4 H, Lymph % (Auto) 14.5 L, [place] % (Auto) 6.9, Eos % (Auto) 4.1, Baso % (Auto) 0.3, Absolute Neuts (auto) 8.4 H, Absolute Lymphs (auto) 1.68, Nucleated RBC % 0 02/15/19 07:25: Sodium 142, Potassium 4.4, Chloride 104, Carbon Dioxide 34.0 H, Anion Gap 4 L, BUN 30 H, Creatinine 1.73 H, Estim Creat Clear Calc 20.18, Est GFR (MDRD) Af Amer 37 L, Est GFR (MDRD) Non-Af 31 L, BUN/Creatinine Ratio 17.3, Glucose 111 H, Calcium 8.8, Total Bilirubin 0.50, AST 28, ALT 36, Alkaline Phosphatase 88, Total Protein 6.0 L, Albumin 2.0 L, Globulin 4.0, Albumin/Globulin Ratio 0.5 L 02/15/19 07:25: PT 16.4 H, INR 1.3 Current Medications Acetaminophen (Tylenol) 650 mg PO Q6H PRN PRN PRN Reason: Pain Score 1-3/Temp > 100.7 F Last Admin: 02/15/19 07:55 Dose: 650 mg Documented by: Albuterol/Ipratropium (Duoneb) 3 ml INHALATION Q4HWA.RT [facility] Last Admin: 02/15/19 07:08 Dose: 3 ml Documented by: Amiodarone HCl (Cordarone) 200 mg PO DAILY [facility] Last Admin: 02/15/19 07:55 Dose: 200 mg Documented by: Amlodipine Besylate (Norvasc) 2.5 mg PO DAILY [facility] Last Admin: 02/15/19 07:46 Dose: 2.5 mg Documented by: Apixaban (Eliquis) 2.5 mg PO BID [facility] Last Admin: 02/15/19 07:47 Dose: 2.5 mg Documented by: Donepezil HCl (Aricept) 5 mg PO QHS [facility] Last Admin: 02/14/19 22:21 Dose: 5 mg Documented by: Duloxetine HCl (Cymbalta) 60 mg PO DAILY [facility] Last Admin: 02/15/19 07:47 Dose: 60 mg Documented by: Ergocalciferol (Vitamin D) 50,000 unit PO Mo@1000 [facility] Ferrous Sulfate (Ferrous Sulfate) 325 mg PO DAILY@1200 [facility] Furosemide (Lasix) 40 mg PO BID@1000,1800 [facility] Last Admin: 02/15/19 07:47 Dose: 40 mg Documented by: Gabapentin (Neurontin) 600 mg PO BID [facility] Last Admin: 02/15/19 07:47 Dose: 600 mg Documented by: Glucagon () 1 mg IM .X1 PRN PRN Reason: Hypoglycemia Hydralazine HCl (Apresoline) 50 mg PO TID [facility] Last Admin: 02/15/19 05:07 Dose: Not Given Documented by: Sodium Chloride () 250 mls @ 15 mls/hr IV .[id number] PRN PRN Reason: Saline Flush Sodium Chloride () 250 mls @ 15 mls/hr IV .[id number] PRN PRN Reason: Additional IVPB Infusion Dextrose (Dextrose 10%-Water) 250 mls @ 999 mls/hr IV .Q16M PRN; Protocol PRN Reason: HYPOGLYCEMIA Insulin Human Lispro (Humalog Kwikpen (Bkc)) 0 unit SC ACHS [facility]; Protocol Last Admin: 02/15/19 06:42 Dose: Not Given Documented by: Magnesium Oxide (Mag-Ox 400) 400 mg PO BID [facility] Last Admin: 02/15/19 07:47 Dose: 400 mg Documented by: Metoprolol Tartrate (Lopressor (Beta Tommy)) 50 mg PO BID [facility] Last Admin: 02/15/19 07:47 Dose: 50 mg Documented by: Morphine Sulfate () 1 - 2 mg IV Q3H PRN PRN PRN Reason: Pain Score 4-10/10 Last Admin: 02/15/19 00:45 Dose: 2 mg Documented by: Nutritional Formula (Lactose Free) (Glucerna Shake) 120 ml PO 4X/DAY [facility] Last Admin: 02/15/19 07:47 Dose: 120 ml Documented by: Ondansetron HCl (Zofran) 4 mg IV Q8H PRN PRN PRN Reason: NAUSEA/VOMITING Oxycodone HCl (Oxyir) 5 mg PO Q4H PRN PRN PRN Reason: Pain Score 1-10/10 Last Admin: 02/15/19 07:54 Dose: 5 mg Documented by: Pantoprazole Sodium (Protonix) 40 mg PO BID [facility] Last Admin: 02/15/19 07:46 Dose: 40 mg Documented by: [facility] Admin: 02/15/19 07:46 Dose: 20 meq Documented by: Sodium Chloride () 10 - 40 ml IV UD PRN PRN Reason: SALINE FLUSH Sodium Hypochlorite (Dakins Solution 0.25% (1/2 Strength)) 1 applic TOPICAL BID [facility]; Protocol Last Admin: 02/14/19 22:22 Dose: 1 applicatio Documented by: Medical Necessity - Tobacco Use Smoking Status: Former smoker Tobacco Use: Cigarettes Assessment/Plan Right hip intertrochanteric fracture operative day #1. Continue with DVT prophylaxis. Had been on clindamycin for antibiotic prophylaxis. Can be weightbearing as tolerated on right lower extremity. Continue [place] today if okay with hospitalist. OK for transfer to [facility] when okay with hospitalist. Follow-up in orthopedic office in 10 to 14 days Multiple medical problems continue hospitalist intervention
--- NOTE | 2019-02-15 08:59 | PN_ITS ---
Subjective: Chief complaint: Follow-up after admission for acute traumatic comminuted intertrochanteric right femur fracture. Patient seen and examined. No acute events overnight. This morning, she complained of right hip pain and she was given her medications. She mentioned that her breathing has been okay compared to yesterday, not any worse. Last nig ht, she had an episode of chest pain. EKG performed and showed no acute changes. Troponin done and it was negative x1. She is afebrile, blood pressure and heart rate are stable, pulse ox is 99% on 3 L. She has been tolerating BiPAP overnight. - Physical Exam Vitals/I&O's: Vital Signs Temp Pulse Resp BP Pulse Ox 98.7 F 90 18 102/60 99 02/15/19 07:57 02/15/19 07:57 02/15/19 07:57 02/15/19 07:57 02/15/19 07:57 Oxygen Flow Rate (L/min) 3 Oxygen Delivery Method Nasal Cannula Weight: 188 lb 4.396 oz Body Mass Index (BMI) 37.0 Finger Stick Blood Glucose 112 Intake and Output for Last 24 Hours 02/13/19 02/14/19 02/15/19 23:59 23:59 23:59 Intake Total 868 / 1108 1129 / 1129 Output Total 950 / 1100 400 / 400 Balance -82 / 8 729 / 729 General: Alert, Oriented x3, Cooperative, - - Minimally short of breath. HEENT: Atraumatic, PERRLA, EOMI, Normocephalic Oral: Moist Mucosa, No Gingival or Mucosal Lesions/ Ulcerations Neck: Supple, No JVD, Negative Carotid Bruits, Trachea Midline, Thyroid Normal Size and Texture Lungs: No wheeze, Diminished, Rales, Rhonchi, - - Decreased breath sounds bilateral, faint basilar crackles, scattered rhonchi. Cardiovascular: Regular rate, Regular Rhythm, Normal S1, Normal S2, PMI Normal Abdomen: Bowel Sounds Present, Soft, Non Tender, Non-Distended, No Hepato- splenomegaly, Obese Extremities: No clubbing, No cyanosis, Edema Skin: No rashes, Ulcer/ Wound Lymphatic: No Cervical, Supraclavicular, or Inguinal Adenopathy Neurological: Cranial nerves II-XII grossly intact, Neuro grossly intact Psych/Mental Status: Normal Affect, Appropriate, Alert and oriented to time, place, person, mood and affect Laboratory Results 02/14/19 12:15: POC Glucose 81 02/14/19 15:30: POC Glucose 92 02/14/19 17:56: POC Glucose 112 H 02/14/19 19:35: Troponin I < 0.015 02/14/19 21:36: POC Glucose 113 H 02/15/19 06:41: POC Glucose 115 H 02/15/19 07:25: WBC 11.6 H, RBC 3.62 L, Hgb 9.6 L, Hct 33.5 L, MCV 92.5, MCH 26.5 L, MCHC 28.7 L, RDW Std Deviation 53.5 H, RDW Coeff of Carissa 15.7 H, Plt Count 326, MPV 10.1, Immature Gran % (Auto) 1.800 H, Neut % (Auto) 72.4 H, Lymph % (Auto) 14.5 L, Jenkins % (Auto) 6.9, Eos % (Auto) 4.1, Baso % (Auto) 0.3, Absolute Neuts (auto) 8.4 H, Absolute Lymphs (auto) 1.68, Nucleated RBC % 0 02/15/19 07:25: Sodium 142, Potassium 4.4, Chloride 104, Carbon Dioxide 34.0 H, Anion Gap 4 L, BUN 30 H, Creatinine 1.73 H, Estim Creat Clear Calc 20.18, Est GFR (MDRD) Af Amer 37 L, Est GFR (MDRD) Non-Af 31 L, BUN/Creatinine Ratio 17.3, Glucose 111 H, Calcium 8.8, Total Bilirubin 0.50, AST 28, ALT 36, Alkaline Phosphatase 88, Total Protein 6.0 L, Albumin 2.0 L, Globulin 4.0, Albumin/Globulin Ratio 0.5 L 02/15/19 07:25: PT 16.4 H, INR 1.3 Current Medications Acetaminophen (Tylenol) 650 mg PO Q6H PRN PRN PRN Reason: Pain Score 1-3/Temp > 100.7 F Last Admin: 02/15/19 07:55 Dose: 650 mg Documented by: Albuterol/Ipratropium (Duoneb) 3 ml INHALATION Q4HWA.RT [facility] Last Admin: 02/15/19 07:08 Dose: 3 ml Documented by: Amiodarone HCl (Cordarone) 200 mg PO DAILY [facility] Last Admin: 02/15/19 07:55 Dose: 200 mg Documented by: Amlodipine Besylate (Norvasc) 2.5 mg PO DAILY [facility] Last Admin: 02/15/19 07:46 Dose: 2.5 mg Documented by: Apixaban (Eliquis) 2.5 mg PO BID [facility] Last Admin: 02/15/19 07:47 Dose: 2.5 mg Documented by: Donepezil HCl (Aricept) 5 mg PO QHS [facility] Last Admin: 02/14/19 22:21 Dose: 5 mg Documented by: Duloxetine HCl (Cymbalta) 60 mg PO DAILY [facility] Last Admin: 02/15/19 07:47 Dose: 60 mg Documented by: Ergocalciferol (Vitamin D) 50,000 unit PO Mo@1000 [facility] Ferrous Sulfate (Ferrous Sulfate) 325 mg PO DAILY@1200 [facility] Furosemide (Lasix) 40 mg PO BID@1000,1800 [facility] Last Admin: 02/15/19 07:47 Dose: 40 mg Documented by: Gabapentin (Neurontin) 600 mg PO BID [facility] Last Admin: 02/15/19 07:47 Dose: 600 mg Documented by: Glucagon () 1 mg IM .X1 PRN PRN Reason: Hypoglycemia Hydralazine HCl (Apresoline) 50 mg PO TID [facility] Last Admin: 02/15/19 05:07 Dose: Not Given Documented by: Sodium Chloride () 250 mls @ 15 mls/hr IV .[id number] PRN PRN Reason: Saline Flush Sodium Chloride () 250 mls @ 15 mls/hr IV .[id number] PRN PRN Reason: Additional IVPB Infusion Dextrose (Dextrose 10%-Water) 250 mls @ 999 mls/hr IV .Q16M PRN; Protocol PRN Reason: HYPOGLYCEMIA Insulin Human Lispro (Humalog Kwikpen (Bkc)) 0 unit SC [facility]; Protocol Last Admin: 02/15/19 06:42 Dose: Not Given Documented by: Magnesium Oxide (Mag-Ox 400) 400 mg PO BID [facility] Last Admin: 02/15/19 07:47 Dose: 400 mg Documented by: Metoprolol Tartrate (Lopressor (Beta Tommy)) 50 mg PO BID [facility] Last Admin: 02/15/19 07:47 Dose: 50 mg Documented by: Morphine Sulfate () 1 - 2 mg IV Q3H PRN PRN PRN Reason: Pain Score 4-11/14 Last Admin: 02/15/19 00:45 Dose: 2 mg Documented by: Nutritional Formula (Lactose Free) (Glucerna Shake) 120 ml PO 4X/DAY [facility] Last Admin: 02/15/19 07:47 Dose: 120 ml Documented by: Ondansetron HCl (Zofran) 4 mg IV Q8H PRN PRN PRN Reason: NAUSEA/VOMITING Oxycodone HCl (Oxyir) 5 mg PO Q4H PRN PRN PRN Reason: Pain Score 1-11/14 Last Admin: 02/15/19 07:54 Dose: 5 mg Documented by: Pantoprazole Sodium (Protonix) 40 mg PO BID [facility] Last Admin: 02/15/19 07:46 Dose: 40 mg Documented by: [facility] ([facility] Last Admin: 02/15/19 07:46 Dose: 20 meq Documented by: Sodium Chloride () 10 - 40 ml IV UD PRN PRN Reason: SALINE FLUSH Sodium Hypochlorite (Dakins Solution 0.25% (1/2 Strength)) 1 applic TOPICAL BID [facility]; Protocol Last Admin: 02/14/19 22:22 Dose: 1 applicatio Documented by: Medical Necessity - Tobacco Use Smoking Status: Former smoker Tobacco Use: Cigarettes Assessment/Plan This is a 74 years old female patient presented to the emergency room because of mechanical fall and right hip pain, found to have acute traumatic comminuted intertrochanteric right femur fracture and she underwent open reduction and internal fixation. She was discharged from the hospital the day before this admission and she was here for pneumonia, sepsis and CHF. #1 acute traumatic comminuted intertrochanteric right femur fracture: Status post open reduction and internal fixation with intramedullary nail, postoperative day 1. She is on IV morphine and OxyIR PRN for pain. Her vital signs are stable, remains on 3 L of oxygen. Repeat routine blood work from today reviewed. Orthopedic surgery is managing. Plan to continue same treatment. #2 recent acute diastolic CHF: She is on p.o. Lasix twice daily and metoprolol. Volume status seems stable this time. Creatinine went up to 1.73 today, it was 1.18 yesterday. She had 2D echocardiogram done few days ago that revealed ejection fraction of 65%. IV fluid discontinued. Plan to change Lasix to once daily, repeat BMP tomorrow morning. #3 recent community-acquired pneumonia with sepsis: Completed 7 days of IV meropenem during her last admission. Has been afebrile. Chest x-ray reviewed. #4 acute hypoxic respiratory failure: Attributed to CHF and pneumonia. Patient has been on oxygen and BiPAP at night. She has been tolerating, respiratory status is stable this time. She is on 3 L at this time. #5 chronic anemia: Baseline has been fluctuating significantly and was between 9 to 12 g/dL. Today's hemoglobin is 9.6 g/dL, likely because of blood loss during surgery and hemodilution. No indication for transfusion, repeat CBC in the morning. #6 CAD status post CABG: Stable, continue Eliquis, metoprolol. #7 paroxysmal atrial fibrillation: Rate is controlled, continue amiodarone and metoprolol for rate control, continue Eliquis for anticoagulation. #8 obstructive sleep apnea: Continue BiPAP at night and with naps.. #9 dementia: Continue Aricept. 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 Wound care nurse consulted. #11 DVT prophylaxis: Continue Eliquis. This note was generated with [employer] dictation software. It may contain incorrect words, spelling, and punctuation that were not noted in checking the note before signing. Code Visit Inpatient E&M: 05194 Subs Hosp L2
[2019-02-15] MEDS: DAKIN'S SOL HALF STRENGTH (=0.25%) 1 APPLIC TOPICAL ×2 (10:39→21:56)
[2019-02-15 11:36] LABS: Bedside Glucose 96 mg/dL (70-110)
--- NOTE | 2019-02-15 12:43 | CPS ---
patient sleeping at this time, placed patient on BiPAP after aerosol. PEP therapy not done.
--- NOTE | 2019-02-15 13:30 | CPS ---
Patient taken off BiPAP to work with PT/OT. Patient placed on 3lpm.
[2019-02-15] MEDS: Ferrous Sulfate 325 MG Tablet PO (14:15)
[2019-02-15] MEDS: hydrALAZINE 50 MG Tablet PO (14:15)
[2019-02-15 16:26] LABS: Bedside Glucose 118 mg/dL (70-110)
[2019-02-15] MEDS: Donepezil HCl 5 MG Tablet PO (21:56)
[2019-02-15 22:06] LABS: Bedside Glucose 115 mg/dL (70-110)
[2019-02-16] VITALS (24 sets, daily range): BP systolic 100–132; BP diastolic 48–93; PULSE 67–87; RESP 12–28; TEMP 36.4–37.4; O2SAT 84–368
--- NOTE | 2019-02-16 00:20 | CPS ---
increased FIO2 to 35%
[2019-02-16] MEDS: Ipratropium/Albuterol Sulfate 3 ML AMPUL.NEB INHALATION ×6 (03:30→23:30)
[2019-02-16] MEDS: Morphine 2 MG/ML Syringe IV (04:44)
[2019-02-16] MEDS: 0.9% Saline Lock 10 ML Syringe IV ×3 (04:44→08:30)
[2019-02-16] MEDS: hydrALAZINE 50 MG Tablet PO ×2 (05:45→15:10)
[2019-02-16 06:14] LABS: Absolute Lymphocyte Count 1.43 X10^3/uL (0.83-4.51); Absolute Neutrophil Count 9.6 X10^3/uL (2.0-7.7); Basophil# 0.02 X10^3/uL; Basophil% 0.2 % (0-1); Eosinophil# 0.37 X10^3/uL; Hematocrit 29.9 % (37-47); Hemoglobin 8.7 g/dL (12.0-15.0); Lymphocyte # 1.43 X10^3/ul (4.0); Lymphocyte % 11.6 % (19-41); Mean Corp Hgb Conc 29.1 g/dL (32-36); Mean Corpuscular Hgb 26.4 pg (27.0-32.0); Mean Corpuscular Volume 90.9 fL (81-99); Mean Platelet Vol. 10.1 fl (6.2-12.0); Monocyte# 0.73 X10^3/uL; Monocyte% 5.9 % (0-10); NRBC Flagged by Analyzer 0 % (0-5); Neutrophil # 9.59 X10^3/uL (2.7-7.7); Neutrophil % 77.9 % (47-70); Platelet Count 328 K/mm3 (150-450); RBC Distribution Width CV 15.8 % (11.6-14.6); RBC Distribution Width SD 52.4 fl (35.1-43.9); Red Blood Count 3.29 M/mm3 (4.2-5.4); White Blood Count 12.3 K/mm3 (4.4-11.0)
[2019-02-16 06:37] LABS: Anion Gap 5 (5-15); BUN 39 mg/dL (7-18); BUN/Creat Ratio 17.7 RATIO (10-20); Calcium,Total 9.1 mg/dL (8.5-10.1); Chloride 102 mmol/L (98-107); EST Glomerular Filtration Rate 23 mL/min (>60); Est Glom Filt Rate - Afr Amer 28 mL/min (>60); Estimated Creatinine Clearance 15.87 ml/min; Glucose 130 mg/dL (74-106); Potassium 4.4 mmol/L (3.5-5.1); Sodium Level 140 mmol/L (136-145)
[2019-02-16 06:41] LABS: Bedside Glucose 114 mg/dL (70-110)
[2019-02-16] MEDS: Metoprolol Tartrate 50 MG Tablet PO ×2 (08:30→23:24)
[2019-02-16] MEDS: Furosemide 40 MG Tablet PO (08:30)
[2019-02-16] MEDS: 0.9% Normal Saline 1,000 ML 75 ML IV (08:30)
[2019-02-16] MEDS: Magnesium Oxide 400 MG Tablet PO ×2 (08:31→23:23)
[2019-02-16] MEDS: Amiodarone 200 MG Tablet PO (08:31)
[2019-02-16] MEDS: Pantoprazole Sodium 40 MG Tablet PO ×2 (08:31→23:23)
[2019-02-16] MEDS: DULoxetine Hcl 60 MG Capsule PO (08:31)
[2019-02-16] MEDS: amLODIPine 2.5 MG Tablet PO (08:31)
[2019-02-16] MEDS: Gabapentin 600 MG Tablet PO ×2 (08:31→23:23)
[2019-02-16] MEDS: APIXABAN 2.5 MG TABLET PO ×2 (08:31→23:23)
[2019-02-16] MEDS: Glucerna Shake 120 ML LIQUID PO ×4 (08:32→23:23)
[2019-02-16] MEDS: DAKIN'S SOL HALF STRENGTH (=0.25%) 1 APPLIC TOPICAL ×2 (08:39→23:30)
--- NOTE | 2019-02-16 08:48 | PCM.PROGNOTE ---
Subjective: Chief complaint: Follow-up after admission for acute traumatic comminuted intertrochanteric right femoral fracture, developed acute kidney injury on top of stage III chronic kidney disease. Patient seen and examined. No acute events overnight. She complained of cough with sputum production. She complains of right hip pain upon movement. She remains on 3 L of oxygen, not needing any more oxygen. She is afebrile, blood pressure and heart rate are stable, pulse ox is 93% on 3 L. - Physical Exam Vitals/I&O's: Vital Signs Temp Pulse Resp BP Pulse Ox 98 F 83 18 126/65 H 97 02/16/19 05:48 02/16/19 08:30 02/16/19 05:48 02/16/19 05:48 02/16/19 05:48 Oxygen Flow Rate (L/min) 3 Oxygen Delivery Method Bi-pap Weight: 189 lb Body Mass Index (BMI) 37.0 Finger Stick Blood Glucose 112 Intake and Output for Last 24 Hours 02/14/19 02/15/19 02/16/19 23:59 23:59 23:59 Intake Total 868 / 1108 1729 / 1729 Output Total 950 / 1100 900 / 1150 450 / 450 Balance -82 / 8 829 / 579 -450 / -450 General: Alert, Oriented x3, Cooperative, - - Mildly short of breath. HEENT: Atraumatic, PERRLA, EOMI, Normocephalic Oral: Moist Mucosa, No Gingival or Mucosal Lesions/ Ulcerations Neck: Supple, No JVD, Negative Carotid Bruits, Trachea Midline, Thyroid Normal Size and Texture Lungs: No wheeze, Diminished, Rales, Rhonchi, Short of Breath, - - Decreased breath sounds bilateral, bilateral rhonchi, Rales. Cardiovascular: Regular rate, Regular Rhythm, Normal S1, Normal S2, PMI Normal Abdomen: Bowel Sounds Present, Soft, Non Tender, Non-Distended, No Hepato-splenomegaly, Obese Extremities: No clubbing, No cyanosis, Edema Skin: No rashes, Ulcer/ Wound Lymphatic: No Cervical, Supraclavicular, or Inguinal Adenopathy Neurological: Cranial nerves II-XII grossly intact, Neuro grossly intact Psych/Mental Status: Normal Affect, Appropriate, Alert and oriented to time, place, person, mood and affect Laboratory Results 02/15/19 11:20: POC Glucose 96 02/15/19 16:17: POC Glucose 118 H 02/15/19 21:50: POC Glucose 115 H 02/16/19 05:40: WBC 12.3 H, RBC 3.29 L, Hgb 8.7 L, Hct 29.9 L, MCV 90.9, MCH 26.4 L, MCHC 29.1 L, RDW Std Deviation 52.4 H, RDW Coeff of Carissa 15.8 H, Plt Count 328, MPV 10.1, Immature Gran % (Auto) 1.400 H, Neut % (Auto) 77.9 H, Lymph % (Auto) 11.6 L, [place] % (Auto) 5.9, Eos % (Auto) 3.0, Baso % (Auto) 0.2, Absolute Neuts (auto) 9.6 H, Absolute Lymphs (auto) 1.43, Nucleated RBC % 0 02/16/19 05:40: Sodium 140, Potassium 4.4, Chloride 102, Carbon Dioxide 33.0 H, Anion Gap 5, BUN 39 H, Creatinine 2.20 H, Estim Creat Clear Calc 15.87, Est GFR (MDRD) Af Amer 28 L, Est GFR (MDRD) Non-Af 23 L, BUN/Creatinine Ratio 17.7, Glucose 130 H, Calcium 9.1 02/16/19 06:35: POC Glucose 114 H Current Medications Acetaminophen (Tylenol) 650 mg PO Q6H PRN PRN PRN Reason: Pain Score 1-3/Temp > 100.7 F Last Admin: 02/15/19 07:55 Dose: 650 mg Documented by: Albuterol/Ipratropium (Duoneb) 3 ml INHALATION Q4HWA.RT [facility] Last Admin: 02/16/19 07:18 Dose: 3 ml Documented by: Amiodarone HCl (Cordarone) 200 mg PO DAILY [facility] Last Admin: 02/16/19 08:31 Dose: 200 mg Documented by: Amlodipine Besylate (Norvasc) 2.5 mg PO DAILY [facility] Last Admin: 02/16/19 08:31 Dose: 2.5 mg Documented by: Apixaban (Eliquis) 2.5 mg PO BID [facility] Last Admin: 02/16/19 08:31 Dose: 2.5 mg Documented by: Donepezil HCl (Aricept) 5 mg PO QHS [facility] Last Admin: 02/15/19 21:56 Dose: 5 mg Documented by: Duloxetine HCl (Cymbalta) 60 mg PO DAILY [facility] Last Admin: 02/16/19 08:31 Dose: 60 mg Documented by: Ergocalciferol (Vitamin D) 50,000 unit PO Mo@1000 MELISSA Ferrous Sulfate (Ferrous Sulfate) 325 mg PO DAILY@1200 [facility] Last Admin: 02/15/19 14:15 Dose: 325 mg Documented by: Gabapentin (Neurontin) 600 mg PO BID [facility] Last Admin: 02/16/19 08:31 Dose: 600 mg Documented by: Glucagon () 1 mg IM .X1 PRN PRN Reason: Hypoglycemia Hydralazine HCl (Apresoline) 50 mg PO TID [facility] Last Admin: 02/16/19 05:45 Dose: 50 mg Documented by: Sodium Chloride () 250 mls @ 15 mls/hr IV .[id number] PRN PRN Reason: Saline Flush Sodium Chloride () 250 mls @ 15 mls/hr IV .[id number] PRN PRN Reason: Additional IVPB Infusion Dextrose (Dextrose 10%-Water) 250 mls @ 999 mls/hr IV .Q16M PRN; Protocol PRN Reason: HYPOGLYCEMIA Sodium Chloride () 1,000 mls @ 75 mls/hr IV .[id number] [facility] Stop: 02/16/19 17:24 Last Admin: 02/16/19 08:30 Dose: 75 mls/hr Documented by: Insulin Human Lispro (Humalog Kwikpen (Bkc)) [address] [facility]; Protocol Last Admin: 02/16/19 08:31 Dose: Not Given Documented by: Magnesium Oxide (Mag-Ox 400) 400 mg PO BID [facility] Last Admin: 02/16/19 08:31 Dose: 400 mg Documented by: Metoprolol Tartrate (Lopressor (Beta Tommy)) 50 mg PO BID [facility] Last Admin: 02/16/19 08:30 Dose: 50 mg Documented by: Morphine Sulfate () 1 - 2 mg IV Q3H PRN PRN PRN Reason: Pain Score 4-10/10 Last Admin: 02/16/19 04:44 Dose: 2 mg Documented by: Nutritional Formula (Lactose Free) (Glucerna Shake) 120 ml PO 4X/DAY [facility] Last Admin: 02/16/19 08:32 Dose: 120 ml Documented by: Ondansetron HCl (Zofran) 4 mg IV Q8H PRN PRN PRN Reason: NAUSEA/VOMITING Oxycodone HCl (Oxyir) 5 mg PO Q4H PRN PRN PRN Reason: Pain Score 1-10/10 Last Admin: 02/15/19 21:56 Dose: 5 mg Documented by: Pantoprazole Sodium (Protonix) 40 mg PO BID [facility] Last Admin: 02/16/19 08:31 Dose: 40 mg Documented by: Potassium Chloride (K-Dur) 20 meq PO BIDCM [facility] Last Admin: 02/16/19 08:31 Dose: 20 meq Documented by: Sodium Chloride () 10 - 40 ml IV UD PRN PRN Reason: SALINE FLUSH Last Admin: 02/16/19 08:30 Dose: 10 ml Documented by: Sodium Hypochlorite (Dakins Solution 0.25% (1/2 Strength)) 1 applic TOPICAL BID [facility]; Protocol Last Admin: 02/16/19 08:39 Dose: 1 applicatio Documented by: Medical Necessity - Tobacco Use Smoking Status: Former smoker Tobacco Use: Cigarettes Assessment/Plan This is a 74 years old female patient presented to the emergency room because of mechanical fall and right hip pain, found to have acute traumatic comminuted intertrochanteric right femur fracture and she underwent open reduction and internal fixation. She was discharged from the hospital the day before this admission and she was here for pneumonia, sepsis and CHF. #1 acute traumatic comminuted intertrochanteric right femur fracture: Status post open reduction and internal fixation with intramedullary nail, postoperative day 2. She is on IV morphine and OxyIR PRN for pain. Her vital signs are stable, remains on 3 L of oxygen. Orthopedic surgery is managing. Plan to continue same treatment. #2 acute kidney injury on top of stage III chronic kidney disease: Baseline creatinine has been around 1.2 to 1.4 mg/dL. Creatinine yesterday was 1.7, went up to 2.2 mg/dL today. Patient was admitted recently for acute CHF and she was on Lasix. Plan: Hold Lasix for now, gentle IV fluids for hydration to avoid volume overload, ambulate, repeat BMP tomorrow morning. #2 recent acute diastolic CHF: She is on p.o. Lasix twice daily and metoprolol. Serum creatinine continued to go up, it is up to 2.20 mg/dL today. She had 2D echocardiogram done few days ago that revealed ejection fraction of 65%. Plan to hold Lasix for now, repeat BMP tomorrow morning. #3 recent community-acquired pneumonia with sepsis: Completed 7 days of IV meropenem during her last admission. Has been afebrile. Will repeat chest x-ray. #4 acute hypoxic respiratory failure: Attributed to CHF and pneumonia. Patient has been on oxygen and BiPAP at night. She has been tolerating, respiratory status is stable this time. She remained on 3 L at this time. Plan as above. #5 chronic anemia: Baseline has been fluctuating significantly and was between 9 to 12 g/dL. Today's hemoglobin is 8.7 g/dL, likely because of blood loss during surgery and hemodilution. No indication for transfusion, repeat CBC in the morning. #6 CAD status post CABG: Stable, continue Eliquis, metoprolol. #7 paroxysmal atrial fibrillation: Rate is controlled, continue amiodarone and metoprolol for rate control, continue Eliquis for anticoagulation. #8 obstructive sleep apnea: Continue BiPAP at night and with naps.. #9 dementia: Continue Aricept. 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 Wound care nurse consulted. #11 DVT prophylaxis: Continue Eliquis. This note was generated with [employer] dictation software. It may contain incorrect words, spelling, and punctuation that were not noted in checking the note before signing. Code Visit Inpatient E&M: 54069 [facility] Hosp L2
--- NOTE | 2019-02-16 08:54 | RAD_ITS ---
STUDY: X-RAY CHEST REASON FOR EXAM: Female, 74 years old. SOB TECHNIQUE: Single AP portable view of the chest. COMPARISON: February 14, 2019 FINDINGS: There is left lower lung increased opacity. There is no demonstrated pleural abnormality. Sternal cerclage wires are present from a prior sternotomy. Normal mediastinum and alee. Normal visualized pulmonary arteries. There is atherosclerotic calcification of the aortic arch with tortuosity. Normal visualized thoracic spine. Normal visualized ribs, clavicles, and shoulders. There is no demonstrated abnormality of the visualized soft tissue structures of the upper abdomen. RAD/Chest 1 View (Portable) IMPRESSION: Left lower lung atelectasis or infiltrate. Electronically Signed: Kash Martinez MD at 14:33 EST , Service support ,
--- NOTE | 2019-02-16 11:40 | CPS ---
Patient on BiPAP, PEP therapy not done.
[2019-02-16 12:25] LABS: Base Excess 10 mmol/L (-2 to +2); Bicarbonate 35.4 mmol/L (22-26); Blood Gas Specimen Type ART; EPAP 7; FI02 35; IPAP 16; PO2 71 mmHG (75-100); SITE R Brachial; SO2 93 % (95-99); Time Given 1214; Total Carbon Dioxide 37 mmol/L; pCO2 61.5 mmHg (35-45); pH 7.37 (7.35-7.45)
--- NOTE | 2019-02-16 12:29 | CPS ---
ABG results given to Dr. Monk
[2019-02-16] MEDS: oxyCODONE 5 MG Tablet PO (12:37)
[2019-02-16] MEDS: Ferrous Sulfate 325 MG Tablet PO (12:37)
[2019-02-16] MEDS: Acetaminophen 325 MG Tablet 650 MG PO (12:38)
[2019-02-16 12:55] LABS: Bedside Glucose 129 mg/dL (70-110)
--- NOTE | 2019-02-16 14:00 | CPS ---
Patient's BiPAP mask switched to a size large to take pressure of the bridge of the nose. Sats at 98%, FiO2 decreased to 30%. RN aware.
--- NOTE | 2019-02-16 15:20 | CPS ---
Patient taken off BiPAP at this time for breathing treatment and placed back on after.
[2019-02-16 16:51] LABS: Bedside Glucose 99 mg/dL (70-110)
--- NOTE | 2019-02-16 19:55 | CPS ---
increased BiPAP settings to 18/10 and FiO2 to 35% for low tidal volumes and low O2 Saturations
[2019-02-16 21:41] LABS: Bedside Glucose 126 mg/dL (70-110)
--- NOTE | 2019-02-16 22:40 | CPS ---
added heated humidity to Bipap
[2019-02-16] MEDS: Donepezil HCl 5 MG Tablet PO (23:23)
[2019-02-17] VITALS (25 sets, daily range): BP systolic 101–142; BP diastolic 52–81; PULSE 62–80; RESP 12–24; TEMP 36.4–36.9; O2SAT 92–100
[2019-02-17] MEDS: Acetaminophen 325 MG Tablet 650 MG PO ×3 (00:24→15:02)
--- NOTE | 2019-02-17 05:15 | NURSING ---
Spoke with daughter in law Best Ya, updated regarding pts night. She will be at work today but would like us to call her cell phone if any changes.
[2019-02-17 05:50] LABS: Absolute Lymphocyte Count 1.25 X10^3/uL (0.83-4.51); Absolute Neutrophil Count 8.6 X10^3/uL (2.0-7.7); Basophil# 0.03 X10^3/uL; Basophil% 0.3 % (0-1); Eosinophil# 0.37 X10^3/uL; Eosinophils% 3.3 % (0-5); Hematocrit 25.4 % (37-47); Hemoglobin 7.5 g/dL (12.0-15.0); Lymphocyte # 1.25 X10^3/ul (4.0); Lymphocyte % 11.2 % (19-41); Mean Corp Hgb Conc 29.5 g/dL (32-36); Mean Corpuscular Hgb 26.9 pg (27.0-32.0); Mean Platelet Vol. 10.1 fl (6.2-12.0); Monocyte# 0.79 X10^3/uL; Monocyte% 7.1 % (0-10); NRBC Flagged by Analyzer 0 % (0-5); Neutrophil # 8.63 X10^3/uL (2.7-7.7); Platelet Count 308 K/mm3 (150-450); RBC Distribution Width CV 15.8 % (11.6-14.6); RBC Distribution Width SD 52.2 fl (35.1-43.9); Red Blood Count 2.79 M/mm3 (4.2-5.4); White Blood Count 11.2 K/mm3 (4.4-11.0)
[2019-02-17 06:20] LABS: Anion Gap 3 (5-15); BUN 41 mg/dL (7-18); BUN/Creat Ratio 21.4 RATIO (10-20); Calcium,Total 8.8 mg/dL (8.5-10.1); Chloride 105 mmol/L (98-107); Creatinine, Serum 1.92 mg/dL (0.55-1.02); EST Glomerular Filtration Rate 27 mL/min (>60); Est Glom Filt Rate - Afr Amer 33 mL/min (>60); Estimated Creatinine Clearance 18.18 ml/min; Glucose 100 mg/dL (74-106); Potassium 5.1 mmol/L (3.5-5.1); Sodium Level 140 mmol/L (136-145)
[2019-02-17] MEDS: Ipratropium/Albuterol Sulfate 3 ML AMPUL.NEB INHALATION ×4 (06:45→19:38)
[2019-02-17 07:00] LABS: Bedside Glucose 93 mg/dL (70-110)
[2019-02-17] MEDS: DAKIN'S SOL HALF STRENGTH (=0.25%) 1 APPLIC TOPICAL ×2 (08:17→22:51)
--- NOTE | 2019-02-17 08:32 | PN_ITS ---
Subjective: Chief complaint: Follow-up after admission for acute traumatic comminuted intertrochanteric right femoral fracture, developed acute kidney injury on top of stage III chronic kidney disease and acute on chronic anemia. Patient seen and examined. No acute events overnight. Shortness of breath is almost the same, minimal improvement, still having cough with difficulty expectorating sputum. Right hip pain is manageable. She has been afebrile, blood pressure and heart rate are stable, pulse ox is 94% on 4 L. - Physical Exam Vitals/I&O's: Vital Signs Temp Pulse Resp BP Pulse Ox 98.4 F 74 20 H 133/56 H 94 02/17/19 03:16 02/17/19 06:45 02/17/19 06:45 02/17/19 05:59 02/17/19 06:45 Oxygen Flow Rate (L/min) 4 Oxygen Delivery Method Nasal Cannula Weight: 194 lb 0.108 oz Body Mass Index (BMI) 37.0 Finger Stick Blood Glucose 112 Intake and Output for Last 24 Hours 02/15/19 02/16/19 02/17/19 23:59 23:59 23:59 Intake Total 1729 / 1729 972.5 / 972.5 360 / 360 Output Total 900 / 1150 750 / 750 500 / 500 Balance 829 / 579 222.5 / 222.5 -140 / -140 General: Alert, Oriented x3, Cooperative, - - Minimally short of breath. HEENT: Atraumatic, PERRLA, EOMI, Normocephalic Oral: Moist Mucosa, No Gingival or Mucosal Lesions/ Ulcerations Neck: Supple, No JVD, Negative Carotid Bruits, Trachea Midline, Thyroid Normal S ize and Texture Lungs: No rhonchi, No wheeze, No rales, Diminished, Short of Breath, - - Decreased breath sounds at the bases, otherwise clear. Cardiovascular: Regular rate, Regular Rhythm, Normal S1, Normal S2, No Ectopic Activity, PMI Normal Abdomen: Soft, Non Tender, Non-Distended, No Hepato-splenomegaly, Obese Extremities: No clubbing, No cyanosis, Edema Skin: No rashes, Ulcer/ Wound Lymphatic: No Cervical, Supraclavicular, or Inguinal Adenopathy Neurological: Cranial nerves II-XII grossly intact, Neuro grossly intact Psych/Mental Status: Normal Affect, Appropriate Laboratory Results 02/16/19 11:31: POC Glucose 129 H 02/16/19 12:18: Specimen Type ART, Sample Site R Brachial, pH 7.37, Bicarbonate Actual 35.4 H, POC Total CO2 37, Base Excess 10 H, O2 Saturation 93 L, O2 % 35, ABG pCO2 61.5 H, ABG pO2 71 L, Rakesh Test NA, O2 Delivery Device Bi / C PAP, EPAP 7, IPAP 16, Blood Gas Notified Whom ABRIL HATCH, Blood Gas Notified Time 1214 02/16/19 16:27: POC Glucose 99 02/16/19 21:33: POC Glucose 126 H 02/17/19 05:06: WBC 11.2 H, RBC 2.79 L, Hgb 7.5 L, Hct 25.4 L, MCV 91.0, MCH 26.9 L, MCHC 29.5 L, RDW Std Deviation 52.2 H, RDW Coeff of Carissa 15.8 H, Plt Count 308, MPV 10.1, Immature Gran % (Auto) 1.100 H, Neut % (Auto) 77.0 H, Lymph % (Auto) 11.2 L, [place] % (Auto) 7.1, Eos % (Auto) 3.3, Baso % (Auto) 0.3, Absolute Neuts (auto) 8.6 H, Absolute Lymphs (auto) 1.25, Nucleated RBC % 0 02/17/19 05:06: Sodium 140, Potassium 5.1, Chloride 105, Carbon Dioxide 32.0, Anion Gap 3 L, BUN 41 H, Creatinine 1.92 H, Estim Creat Clear Calc 18.18, Est GFR (MDRD) Af Amer 33 L, Est GFR (MDRD) Non-Af 27 L, BUN/Creatinine Ratio 21.4 H , Glucose 100, Calcium 8.8 02/17/19 06:48: POC Glucose 93 Current Medications Acetaminophen (Tylenol) 650 mg PO Q6H PRN PRN PRN Reason: Pain Score 1-3/Temp > 100.7 F Last Admin: 02/17/19 06:52 Dose: 650 mg Documented by: Albuterol/Ipratropium (Duoneb) 3 ml INHALATION Q4HWA.RT [facility] Last Admin: 02/17/19 06:45 Dose: 3 ml Documented by: Amiodarone HCl (Cordarone) 200 mg PO DAILY [facility] Last Admin: 02/16/19 08:31 Dose: 200 mg Documented by: Amlodipine Besylate (Norvasc) 2.5 mg PO DAILY [facility] Last Admin: 02/16/19 08:31 Dose: 2.5 mg Documented by: Apixaban (Eliquis) 2.5 mg PO BID [facility] Last Admin: 02/16/19 23:23 Dose: 2.5 mg Documented by: Donepezil HCl (Aricept) 5 mg PO QHS [facility] Last Admin: 02/16/19 23:23 Dose: 5 mg Documented by: Duloxetine HCl (Cymbalta) 60 mg PO DAILY [facility] Last Admin: 02/16/19 08:31 Dose: 60 mg Documented by: Ergocalciferol (Vitamin D) 50,000 unit PO Mo@1000 [facility] Ferrous Sulfate (Ferrous Sulfate) 325 mg PO 1200,1700 [facility] Furosemide (Lasix) 20 mg IV X1 ONE Stop: 02/17/19 08:31 Gabapentin (Neurontin) 600 mg PO BID [facility] Last Admin: 02/16/19 23:23 Dose: 600 mg Documented by: Glucagon () 1 mg IM .X1 PRN PRN Reason: Hypoglycemia Hydralazine HCl (Apresoline) 50 mg PO TID [facility] Last Admin: 02/17/19 05:59 Dose: Not Given Documented by: Sodium Chloride () 250 mls @ 15 mls/hr IV .[id number] PRN PRN Reason: Saline Flush Sodium Chloride () 250 mls @ 15 mls/hr IV .[id number] PRN PRN Reason: Additional IVPB Infusion Dextrose (Dextrose 10%-Water) 250 mls @ 999 mls/hr IV .Q16M PRN; Protocol PRN Reason: HYPOGLYCEMIA Insulin Human Lispro (Humalog Kwikpen (Bkc)) 0 unit SC ACHS [facility]; Protocol Last Admin: 02/17/19 06:52 Dose: Not Given Documented by: Magnesium Oxide (Mag-Ox 400) 400 mg PO BID [facility] Last Admin: 02/16/19 23:23 Dose: 400 mg Documented by: Metoprolol Tartrate (Lopressor (Beta Tommy)) 50 mg PO BID [facility] Last Admin: 02/16/19 23:24 Dose: 50 mg Documented by: Morphine Sulfate () 1 mg IV Q6H PRN PRN PRN Reason: Pain Score 4-10/10 Nutritional Formula (Lactose Free) (Glucerna Shake) 120 ml PO 4X/DAY [facility] Last Admin: 02/16/19 23:23 Dose: 120 ml Documented by: Ondansetron HCl (Zofran) 4 mg IV Q8H PRN PRN PRN Reason: NAUSEA/VOMITING Oxycodone HCl (Oxyir) 5 mg PO Q8H PRN PRN PRN Reason: Pain Score 6-10/10 Pantoprazole Sodium (Protonix) 40 mg PO BID [facility] Last Admin: 02/16/19 23:23 Dose: 40 mg Documented by: [facility] Last Admin: 02/16/19 17:07 Dose: 20 meq Documented by: Sodium Chloride () 10 - 40 ml IV UD PRN PRN Reason: SALINE FLUSH Last Admin: 02/16/19 08:30 Dose: 10 ml Documented by: Sodium Hypochlorite (Dakins Solution 0.25% (1/2 Strength)) 1 applic TOPICAL BID [facility]; Protocol Last Admin: 02/17/19 08:17 Dose: 1 applicatio Documented by: Tramadol HCl (Ultram) 50 mg PO TID PRN PRN PRN Reason: Pain Score 4-5/10 Medical Necessity - Tobacco Use Smoking Status: Former smoker Assessment/Plan This is a 74 years old female patient presented to the emergency room because of mechanical fall and right hip pain, found to have acute traumatic comminuted intertrochanteric right femur fracture and she underwent open reduction and internal fixation. She was discharged from the hospital the day before this admission and she was here for pneumonia, sepsis and CHF. #1 acute traumatic comminuted intertrochanteric right femur fracture: Status post open reduction and internal fixation with intramedullary nail, postoperative day 3. Nursing staff mentioned that patient has mild erythema around the surgical site. Requested to have orthopedic surgery evaluate the patient. She is on IV morphine and OxyIR PRN for pain. Orthopedic surgery is managing, plan to continue same treatment. #2 acute kidney injury on top of stage III chronic kidney disease: Baseline creatinine has been around 1.2 to 1.4 mg/dL. Creatinine went up to 2.2 mg/dL today. She has been getting intermittent IV fluids. Lasix on hold. Today, creatinine is 1.92, start to come down. For now, will just monitor, repeat BMP tomorrow morning. #3 acute on chronic anemia: Today's hemoglobin is 7.5 g/dL. It has been trending down. Likely because of blood loss during surgery and hemodilution. At this time, no evidence of active bleeding. Platelet count is normal, INR is 1.3. Plan to transfuse 1 unit of packed RBCs, repeat CBC tomorrow morning. #4 recent acute diastolic CHF: Lasix on hold, she is on metoprolol. Serum creatinine started to improve, it is down to 1.92. She had 2D echocardiogram done few days ago that revealed ejection fraction of 65%. Today, we will give 1 dose of IV Lasix 20 mg just before blood transfusion. #5 recent community-acquired pneumonia with sepsis: Completed 7 days of IV meropenem during her last admission. Has been afebrile. Repeat chest x-ray reviewed. #6 acute hypoxic respiratory failure: Attributed to CHF and pneumonia. Patient has been on oxygen and BiPAP at night. She has been tolerating, respiratory status is stable this time. Plan to keep BiPAP at night and with naps, continue oxygen. #6 CAD status post CABG: Stable, continue Eliquis, metoprolol. #7 paroxysmal atrial fibrillation: Rate is controlled, continue amiodarone and metoprolol for rate control, continue Eliquis for anticoagulation. #8 obstructive sleep apnea: Continue BiPAP at night and with naps.. #9 dementia: Continue Aricept. 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 Wound care nurse consulted. #11 DVT prophylaxis: Continue Eliquis. This note was generated with [employer] software. It may contain incorrect words, spelling, and punctuation that were not noted in checking the note before signing. Code Visit Inpatient E&M: 60191 Subs Hosp L2
--- NOTE | 2019-02-17 08:33 | NURSING ---
wound photo: right lateral lower leg
--- NOTE | 2019-02-17 08:34 | NURSING ---
wound photo: right medial lower leg
--- NOTE | 2019-02-17 08:35 | NURSING ---
wound photo: left medial lower leg
[2019-02-17] MEDS: Magnesium Oxide 400 MG Tablet PO ×2 (09:48→22:50)
[2019-02-17] MEDS: Gabapentin 600 MG Tablet PO ×2 (09:48→22:50)
[2019-02-17] MEDS: DULoxetine Hcl 60 MG Capsule PO (09:49)
[2019-02-17] MEDS: Pantoprazole Sodium 40 MG Tablet PO ×2 (09:49→22:50)
[2019-02-17] MEDS: Metoprolol Tartrate 50 MG Tablet PO ×2 (09:49→22:50)
[2019-02-17] MEDS: amLODIPine 2.5 MG Tablet PO (09:49)
[2019-02-17] MEDS: Amiodarone 200 MG Tablet PO (09:50)
[2019-02-17] MEDS: Glucerna Shake 120 ML LIQUID PO ×4 (09:51→22:50)
--- NOTE | 2019-02-17 09:58 | CASEMGMT ---
Addendum entered by Digna Palumbo 02/17/19 13:51: JAGDEEP faxed updated PT/OT/Wound documentation to [facility]. Addendum entered by Digna Palumbo 02/17/19 10:54: Physician states pt's hemoglobin is down and is getting blood today, likely no discharge today. JAGDEEP placed a call to Quiana at [facility] and updated her that pt is not medically cleared for discharge today. JAGDEEP informed Quiana to submit for pre-cert. Original Note: Social Work Note JAGDEEP faxed updated clinicals to [facility]. Plan: [facility] pending pre-cert Digna Palumbo MSW, [employer] [address] [employer]ORDER
[2019-02-17] MEDS: 0.9% Saline Lock 10 ML Syringe IV ×2 (11:33→14:51)
[2019-02-17] MEDS: Furosemide 20 MG/2 ML VIAL IV (11:34)
[2019-02-17] MEDS: APIXABAN 2.5 MG TABLET PO ×2 (11:34→22:50)
[2019-02-17] MEDS: Ferrous Sulfate 325 MG Tablet PO ×2 (12:01→17:27)
[2019-02-17] MEDS: hydrALAZINE 50 MG Tablet PO ×2 (14:51→22:51)
[2019-02-17 16:41] LABS: Bedside Glucose 132 mg/dL (70-110)
[2019-02-17 17:40] LABS: Bedside Glucose 88 mg/dL (70-110)
[2019-02-17] MEDS: oxyCODONE 5 MG Tablet PO (22:50)
[2019-02-17] MEDS: Donepezil HCl 5 MG Tablet PO (22:51)
[2019-02-17 23:30] LABS: Bedside Glucose 123 mg/dL (70-110)
[2019-02-18] VITALS (10 sets, daily range): BP systolic 107–128; BP diastolic 49–66; PULSE 63–72; RESP 12–19; TEMP 36.8–37; O2SAT 93–98
[2019-02-18] MEDS: traMADol 50 MG Tablet PO (01:03)
[2019-02-18] MEDS: Acetaminophen 325 MG Tablet 650 MG PO (04:25)
[2019-02-18 05:40] LABS: Absolute Lymphocyte Count 1.29 X10^3/uL (0.83-4.51); Absolute Neutrophil Count 8.3 X10^3/uL (2.0-7.7); Basophil# 0.02 X10^3/uL; Basophil% 0.2 % (0-1); Eosinophil# 0.48 X10^3/uL; Eosinophils% 4.3 % (0-5); Hematocrit 29.2 % (37-47); Hemoglobin 8.8 g/dL (12.0-15.0); Lymphocyte # 1.29 X10^3/ul (4.0); Lymphocyte % 11.6 % (19-41); Mean Corp Hgb Conc 30.1 g/dL (32-36); Mean Corpuscular Hgb 27.2 pg (27.0-32.0); Mean Corpuscular Volume 90.1 fL (81-99); Mean Platelet Vol. 9.8 fl (6.2-12.0); Monocyte# 0.82 X10^3/uL; Monocyte% 7.4 % (0-10); NRBC Flagged by Analyzer 0 % (0-5); Neutrophil # 8.32 X10^3/uL (2.7-7.7); Platelet Count 347 K/mm3 (150-450); RBC Distribution Width CV 15.4 % (11.6-14.6); RBC Distribution Width SD 50.3 fl (35.1-43.9); Red Blood Count 3.24 M/mm3 (4.2-5.4); White Blood Count 11.1 K/mm3 (4.4-11.0)
[2019-02-18 05:58] LABS: Anion Gap 3 (5-15); BUN 36 mg/dL (7-18); BUN/Creat Ratio 26.5 RATIO (10-20); Calcium,Total 8.9 mg/dL (8.5-10.1); Chloride 106 mmol/L (98-107); Creatinine, Serum 1.36 mg/dL (0.55-1.02); EST Glomerular Filtration Rate 40 mL/min (>60); Est Glom Filt Rate - Afr Amer 49 mL/min (>60); Estimated Creatinine Clearance 25.67 ml/min; Glucose 97 mg/dL (74-106); Potassium 4.7 mmol/L (3.5-5.1); Sodium Level 141 mmol/L (136-145)
[2019-02-18] MEDS: hydrALAZINE 50 MG Tablet PO (06:45)
[2019-02-18] MEDS: oxyCODONE 5 MG Tablet PO (06:52)
[2019-02-18 06:55] LABS: Bedside Glucose 96 mg/dL (70-110)
[2019-02-18] MEDS: Ipratropium/Albuterol Sulfate 3 ML AMPUL.NEB INHALATION ×2 (07:03→11:30)
--- NOTE | 2019-02-18 07:25 | PN.ORTHO_ITS ---
Subjective: Patient is 4 days postop following open reduction internal fixation right hip with a short gamma nail. Dr. David Chand did assess her surgical site yesterday due to concerns for underlying possible surgical site infection. He was unimpressed there is no erythema or active drainage. A new silver Mepilex dressing was applied. Since the time of reapplication of the Mepilex dressing there was one small dried bloody spot at the proximal aspect of the dressing it has not been spreading the borders were outlined by the patient's nurse. She co ntinues to be afebrile she is not having increasing pain. Objective: Mepilex dressing was removed today. There is some surrounding erythema at the proximal thigh radiating anteriorly surgical sites are intact with moe healing without active drainage. The erythematous borders were outlined with pen. No expressible drainage was present at the surgical sites a new dry sterile Mepilex dressing was applied. Patient tolerated procedure well. - Physical Exam Vitals/I&O's: Vital Signs Temp Pulse Resp BP Pulse Ox 98.6 F 63 18 107/49 L 97 02/18/19 04:17 02/18/19 06:45 02/18/19 04:30 02/18/19 06:45 02/18/19 04:30 Oxygen Flow Rate (L/min) 3 Oxygen Delivery Method Nasal Cannula Weight: 89.1 kg Body Mass Index (BMI) 37.0 Finger Stick Blood Glucose 112 Intake and Output for Last 24 Hours 02/16/19 02/17/19 02/18/19 23:59 23:59 23:59 Intake Total 972.5 / 972.5 360 / 580 420 / 420 Output Total 750 / 750 1300 / 1900 700 / 700 Balance 222.5 / 222.5 -940 / -1320 -280 / -280 Laboratory Results 02/17/19 08:55: Blood Type A POSITIVE, Antibody Screen NEGATIVE, Crossmatch See Detail 02/17/19 11:24: POC Glucose 88 02/17/19 16:35: POC Glucose 132 H 02/17/19 22:55: POC Glucose 123 H 02/18/19 05:00: WBC 11.1 H, RBC 3.24 L, Hgb 8.8 L, Hct 29.2 L, MCV 90.1, MCH 27.2, MCHC 30.1 L, RDW Std Deviation 50.3 H, RDW Coeff of Carissa 15.4 H, Plt Count 347, MPV 9.8, Immature Gran % (Auto) 1.500 H, Neut % (Auto) 75.0 H, Lymph % (Auto) 11.6 L, [place] % (Auto) 7.4, Eos % (Auto) 4.3, Baso % (Auto) 0.2, Absolute Neuts (auto) 8.3 H, Absolute Lymphs (auto) 1.29, Nucleated RBC % 0 02/18/19 05:00: Sodium 141, Potassium 4.7, Chloride 106, Carbon Dioxide 32.0, Anion Gap 3 L, BUN 36 H, Creatinine 1.36 H, Estim Creat Clear Calc 25.67, Est GFR (MDRD) Af Amer 49 L, Est GFR (MDRD) Non-Af 40 L, BUN/Creatinine Ratio 26.5 H , Glucose 97, Calcium 8.9 02/18/19 06:49: POC Glucose 96 Current Medications Acetaminophen (Tylenol) 650 mg PO Q6H PRN PRN PRN Reason: Pain Score 1-3/Temp > 100.7 F Last Admin: 02/18/19 04:25 Dose: 650 mg Documented by: Albuterol/Ipratropium (Duoneb) 3 ml INHALATION Q4HWA.RT [facility] Last Admin: 02/18/19 07:03 Dose: 3 ml Documented by: Amiodarone HCl (Cordarone) 200 mg PO DAILY [facility] Last Admin: 02/17/19 09:50 Dose: 200 mg Documented by: Amlodipine Besylate (Norvasc) 2.5 mg PO DAILY [facility] Last Admin: 02/17/19 09:49 Dose: 2.5 mg Documented by: Apixaban (Eliquis) 2.5 mg PO BID [facility] Last Admin: 02/17/19 22:50 Dose: 2.5 mg Documented by: Donepezil HCl (Aricept) 5 mg PO QHS [facility] Last Admin: 02/17/19 22:51 Dose: 5 mg Documented by: Duloxetine HCl (Cymbalta) 60 mg PO DAILY [facility] Last Admin: 02/17/19 09:49 Dose: 60 mg Documented by: Ergocalciferol (Vitamin D) 50,000 unit PO Mo@1000 [facility] Last Admin: 02/17/19 11:33 Dose: 50,000 unit Documented by: Ferrous Sulfate (Ferrous Sulfate) 325 mg PO 1200,1700 [facility] Last Admin: 02/17/19 17:27 Dose: 325 mg Documented by: Furosemide (Lasix) 40 mg PO BID@1000,1800 [facility] Gabapentin (Neurontin) 600 mg PO BID [facility] Last Admin: 02/17/19 22:50 Dose: 600 mg Documented by: Glucagon () 1 mg IM .X1 PRN PRN Reason: Hypoglycemia Hydralazine HCl (Apresoline) 50 mg PO TID [facility] Last Admin: 02/18/19 06:45 Dose: 50 mg Documented by: Sodium Chloride () 250 mls @ 15 mls/hr IV .[id number] PRN PRN Reason: Saline Flush Sodium Chloride () 250 mls @ 15 mls/hr IV .[id number] PRN PRN Reason: Additional IVPB Infusion Dextrose (Dextrose 10%-Water) 250 mls @ 999 mls/hr IV .Q16M PRN; Protocol PRN Reason: HYPOGLYCEMIA Insulin Human Lispro (Humalog Kwikpen (Bkc)) 0 unit SC ACHS [facility]; Protocol Last Admin: 02/18/19 06:49 Dose: Not Given Documented by: Magnesium Oxide (Mag-Ox 400) 400 mg PO BID [facility] Last Admin: 02/17/19 22:50 Dose: 400 mg Documented by: Metoprolol Tartrate (Lopressor (Beta Tommy)) 50 mg PO BID [facility] Last Admin: 02/17/19 22:50 Dose: 50 mg Documented by: Morphine Sulfate () 1 mg IV Q6H PRN PRN PRN Reason: Pain Score 4-10/10 Nutritional Formula (Lactose Free) (Glucerna Shake) 120 ml PO 4X/DAY [facility] Last Admin: 02/17/19 22:50 Dose: 120 ml Documented by: Nystatin (Mycostatin Powder) 1 applic TOPICAL BID [facility]; Protocol Ondansetron HCl (Zofran) 4 mg IV Q8H PRN PRN PRN Reason: NAUSEA/VOMITING Oxycodone HCl (Oxyir) 5 mg PO Q8H PRN PRN PRN Reason: Pain Score 6-10/10 Last Admin: 02/18/19 06:52 Dose: 5 mg Documented by: Pantoprazole Sodium (Protonix) 40 mg PO BID [facility] Last Admin: 02/17/19 22:50 Dose: 40 mg Documented by: Potassium Chloride (K-Dur) 20 meq PO BIDCM [facility] Last Admin: 02/17/19 17:27 Dose: 20 meq Documented by: Sodium Chloride () 10 - 40 ml IV UD PRN PRN Reason: SALINE FLUSH Last Admin: 02/17/19 14:51 Dose: 20 ml Documented by: Sodium Hypochlorite (Dakins Solution 0.25% (1/2 Strength)) 1 applic TOPICAL BID [facility]; Protocol Last Admin: 02/17/19 22:51 Dose: 1 applicatio Documented by: Tramadol HCl (Ultram) 50 mg PO TID PRN PRN PRN Reason: Pain Score 4-5/10 Last Admin: 02/18/19 01:03 Dose: 50 mg Documented by: Medical Necessity - Tobacco Use Smoking Status: Former smoker Tobacco Use: Cigarettes Assessment/Plan Impression: Reactive erythema versus superficial skin cellulitis at the surgical site following open reduction internal fixation right hip Case and findings were discussed and reviewed at length with Dr. David Chand. Patient has continued to be afebrile in the postoperative period and her white blood cell count is starting to trend downward. With the increasing erythema at the surgical site we will prophylactically add doxycycline 100 mg 1 p.o. twice daily. We would recommend continuing this for 10 to 14 days postoperative until her follow-up appointment. Continue with the Mepilex dressing. If erythema is spreading or laboratory results are vital signs reflective of infection please do not hesitate to contact us with further orthopedic concerns we will otherwise see her in the office in 10 to 14 days for reassessment
[2019-02-18] MEDS: DAKIN'S SOL HALF STRENGTH (=0.25%) 1 APPLIC TOPICAL (08:09)
[2019-02-18] MEDS: Metoprolol Tartrate 50 MG Tablet PO (08:42)
[2019-02-18] MEDS: Magnesium Oxide 400 MG Tablet PO (08:42)
--- NOTE | 2019-02-18 09:38 | PN_ITS ---
Subjective: Chief complaint: Follow-up after admission for acute traumatic comminuted intertrochanteric right femoral fracture, developed acute kidney injury on top of stage III chronic kidney disease and acute on chronic anemia. Patient seen and examined. No acute events overnight. Today, she feels better. Shortness of breath remains stable and she remains on 3 L of oxygen. Right hip pain is manageable. She has been afebrile, blood pressure and heart rate are stable, pulse ox is 92% on 3 L. - Physical Exam Vitals/I&O's: Vital Signs Temp Pulse Resp BP Pulse Ox 98.2 F 65 18 121/62 H 93 02/18/19 08:36 02/18/19 08:42 02/18/19 08:36 02/18/19 08:42 02/18/19 08:36 Oxygen Flow Rate (L/min) 3 Oxygen Delivery Method Nasal Cannula Weight: 196 lb 6.91 oz Body Mass Index (BMI) 37.0 Finger Stick Blood Glucose 112 Intake and Output for Last 24 Hours 02/16/19 02/17/19 02/18/19 23:59 23:59 23:59 Intake Total 972.5 / 972.5 360 / 580 420 / 420 Output Total 750 / 750 1300 / 1900 700 / 700 Balance 222.5 / 222.5 -940 / -1320 -280 / -280 General: Alert, Oriented x3, Cooperative, No apparent distress HEENT: Atraumatic, PERRLA, EOMI, Normocephalic Oral: Moist Mucosa, No Gingival or Mucosal Lesions/ Ulcerations Neck: Supple, No JVD, Negative Carotid Bruits, Trachea Midline, Thyroid Normal Size and Texture Lungs: Clear to auscultation, Normal air movement, No wheeze, No rales, Diminished Cardiovascular: Regular rate, Regular Rhythm, Normal S1, Normal S2, No Ectopic Activity, PMI Normal Abdomen: Soft, Non Tender, Non-Distended, No Hepato-splenomegaly, Obese Extremities: No clubbing, No cyanosis, Edema Skin: No rashes, Ulcer/ Wound Lymphatic: No Cervical, Supraclavicular, or Inguinal Adenopathy Neurological: Cranial nerves II-XII grossly intact, Neuro grossly intact Psych/Mental Status: Normal Affect, Appropriate, Alert and oriented to time, place, person, mood and affect Laboratory Results 02/17/19 08:55: Blood Type A POSITIVE, Antibody Screen NEGATIVE, Crossmatch See Detail 02/17/19 11:24: POC Glucose 88 02/17/19 16:35: POC Glucose 132 H 02/17/19 22:55: POC Glucose 123 H 02/18/19 05:00: WBC 11.1 H, RBC 3.24 L, Hgb 8.8 L, Hct 29.2 L, MCV 90.1, MCH 27.2, MCHC 30.1 L, RDW Std Deviation 50.3 H, RDW Coeff of Carissa 15.4 H, Plt Count 347, MPV 9.8, Immature Gran % (Auto) 1.500 H, Neut % (Auto) 75.0 H, Lymph % (Auto) 11.6 L, [place] % (Auto) 7.4, Eos % (Auto) 4.3, Baso % (Auto) 0.2, Absolute Neuts (auto) 8.3 H, Absolute Lymphs (auto) 1.29, Nucleated RBC % 0 02/18/19 05:00: Sodium 141, Potassium 4.7, Chloride 106, Carbon Dioxide 32.0, Anion Gap 3 L, BUN 36 H, Creatinine 1.36 H, Estim Creat Clear Calc 25.67, Est GFR (MDRD) Af Amer 49 L, Est GFR (MDRD) Non-Af 40 L, BUN/Creatinine Ratio 26.5 H , Glucose 97, Calcium 8.9 02/18/19 06:49: POC Glucose 96 Current Medications Acetaminophen (Tylenol) 650 mg PO Q6H PRN PRN PRN Reason: Pain Score 1-3/Temp > 100.7 F Last Admin: 02/18/19 04:25 Dose: 650 mg Documented by: Albuterol/Ipratropium (Duoneb) 3 ml INHALATION Q4HWA.RT [facility] Last Admin: 02/18/19 07:03 Dose: 3 ml Documented by: Amiodarone HCl (Cordarone) 200 mg PO DAILY [facility] Last Admin: 02/17/19 09:50 Dose: 200 mg Documented by: Amlodipine Besylate (Norvasc) 2.5 mg PO DAILY [facility] Last Admin: 02/17/19 09:49 Dose: 2.5 mg Documented by: Apixaban (Eliquis) 2.5 mg PO BID [facility] Last Admin: 02/17/19 22:50 Dose: 2.5 mg Documented by: Donepezil HCl (Aricept) 5 mg PO QHS [facility] Last Admin: 02/17/19 22:51 Dose: 5 mg Documented by: Doxycycline Monohydrate (Doxycycline) 100 mg PO BID [facility] Duloxetine HCl (Cymbalta) 60 mg PO DAILY [facility] Last Admin: 02/17/19 09:49 Dose: 60 mg Documented by: Ergocalciferol (Vitamin D) 50,000 unit PO Mo@1000 [facility] Last Admin: 02/17/19 11:33 Dose: 50,000 unit Documented by: Ferrous Sulfate (Ferrous Sulfate) 325 mg PO 1200,1700 [facility] Last Admin: 02/17/19 17:27 Dose: 325 mg Documented by: Furosemide (Lasix) 40 mg PO BID@1000,1800 [facility] Gabapentin (Neurontin) 600 mg PO BID [facility] Last Admin: 02/17/19 22:50 Dose: 600 mg Documented by: Glucagon () 1 mg IM .X1 PRN PRN Reason: Hypoglycemia Hydralazine HCl (Apresoline) 50 mg PO TID [facility] Last Admin: 02/18/19 06:45 Dose: 50 mg Documented by: Sodium Chloride () 250 mls @ 15 mls/hr IV .[id number] PRN PRN Reason: Saline Flush Sodium Chloride () 250 mls @ 15 mls/hr IV .[id number] PRN PRN Reason: Additional IVPB Infusion Dextrose (Dextrose 10%-Water) 250 mls @ 999 mls/hr IV .Q16M PRN; Protocol PRN Reason: HYPOGLYCEMIA Insulin Human Lispro (Humalog Kwikpen (Bkc)) 0 unit SC ACHS [facility]; Protocol Last Admin: 02/18/19 06:49 Dose: Not Given Documented by: [facility] ([facility]Ox 400) [facility] Last Admin: 02/18/19 08:42 Dose: 400 mg Documented by: Metoprolol Tartrate (Lopressor (Beta Tommy)) 50 mg PO BID [facility] Last Admin: 02/18/19 08:42 Dose: 50 mg Documented by: Morphine Sulfate () 1 mg IV Q6H PRN PRN PRN Reason: Pain Score 4-10/10 Nutritional Formula (Lactose Free) (Glucerna Shake) 120 ml PO 4X/DAY [facility] Last Admin: 02/17/19 22:50 Dose: 120 ml Documented by: Nystatin (Mycostatin Powder) 1 applic TOPICAL BID [facility]; Protocol Ondansetron HCl (Zofran) 4 mg IV Q8H PRN PRN PRN Reason: NAUSEA/VOMITING Oxycodone HCl (Oxyir) 5 mg PO Q8H PRN PRN PRN Reason: Pain Score 6-10/10 Last Admin: 02/18/19 06:52 Dose: 5 mg Documented by: Pantoprazole Sodium (Protonix) 40 mg PO BID [facility] Last Admin: 02/17/19 22:50 Dose: 40 mg Documented by: Potassium Chloride (K-Dur) [facility]q [facility] Last Admin: 02/18/19 08:42 Dose: 20 meq Documented by: Sodium Chloride () 10 - 40 ml IV UD PRN PRN Reason: SALINE FLUSH Last Admin: 02/17/19 14:51 Dose: 20 ml Documented by: Sodium Hypochlorite (Dakins Solution 0.25% (1/2 Strength)) 1 applic TOPICAL BID [facility]; Protocol Last Admin: 02/18/19 08:09 Dose: 1 applicatio Documented by: Tramadol HCl (Ultram) 50 mg PO TID PRN PRN PRN Reason: Pain Score 4-5/10 Last Admin: 02/18/19 01:03 Dose: 50 mg Documented by: Medical Necessity - Tobacco Use Smoking Status: Former smoker Tobacco Use: Cigarettes Assessment/Plan This is a 74 years old female patient presented to the emergency room because of mechanical fall and right hip pain, found to have acute traumatic comminuted intertrochanteric right femur fracture and she underwent open reduction and internal fixation. Later, she developed acute kidney injury on top of stage III chronic kidney disease. #1 acute traumatic comminuted intertrochanteric right femur fracture: Status post open reduction and internal fixation with intramedullary nail, postoperative day 4. She was seen and evaluated by the orthopedic surgery for the erythema and swelling of the surgical site. Apparently, they do not think it is infected and she was started on doxycycline empirically. Patient has been afebrile, minimal leukocytosis. Plan: Awaiting insurance approval for placement to nursing home facility. #2 acute kidney injury on top of stage III chronic kidney disease: Baseline creatinine has been around 1.2 to 1.4 mg/dL. Creatinine went up to 2.2 mg/dL today. She has been getting intermittent IV fluids. Today's creatinine is 1.36, improving. Plan to resume Lasix. #3 acute on chronic anemia: She received 1 unit of packed RBCs. Today's hemoglobin is 8.8 g/dL. Likely because of blood loss during surgery and hemodilution. At this time, no evidence of active bleeding. Platelet count is normal, INR is 1.3. She is on iron supplement. #4 recent acute diastolic CHF: Lasix on hold, she is on metoprolol. Serum creatinine improved. She had 2D echocardiogram done few days ago that revealed ejection fraction of 65%. Plan to resume Lasix 40 mg p.o. twice daily. #5 recent community-acquired pneumonia with sepsis: Completed 7 days of IV meropenem during her last admission. Has been afebrile. Repeat chest x-ray reviewed. #6 acute hypoxic respiratory failure: Attributed to CHF and pneumonia. Patient has been on oxygen and BiPAP at night. She has been tolerating, respiratory status is stable this time. Plan to continue BiPAP at night and with naps and oxygen during daytime upon discharge to SNF. #6 CAD status post CABG: Stable, continue Eliquis, metoprolol. #7 paroxysmal atrial fibrillation: Rate is controlled, continue amiodarone and metoprolol for rate control, continue Eliquis for anticoagulation. #8 obstructive sleep apnea: Continue BiPAP at night and with naps.. #9 dementia: Continue Aricept. 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 Wound care nurse is managing. #11 DVT prophylaxis: Continue Eliquis. This note was generated with [employer] dictation software. It may contain incorrect words, spelling, and punctuation that were not noted in checking the note before signing. Code Visit Inpatient E&M: 77408 Subs Hosp L2
--- NOTE | 2019-02-18 09:49 | TREXTCAR_ITS ---
- Diet 02/14/19 06:55 Diet: Regular Diet Food consistency:: Regular Liquid Consistency:: Regular/Thin Type of Dietary Supplement:: Glucerna 1.5 emilio - Routine Orders/Code Status O2 Liters per Minute: 3 O2 Frequency: Continuous Keep PO Greater than or Equal to (%): 90 [facility] - Wound(s) cabrera right leg Wound Type: Stasis Ulcer calf right leg Wound Type: Stasis Ulcer right calf Wound Type: Abrasion Calf Left Leg Wound Type: Stasis Ulcer right lateral wrist Wound Type: Abrasion left medial lower leg Wound Type: healing surgical wound Dressing Change: Dakins moistened gauze right medial lower leg Wound Type: healing surgical wounds Dressing Change: Dakins moistened gauze right lateral lower leg Wound Type: healing surgical wound Dressing Change: Dakins moistened gauze RIGHT HIP, ANTERIOR Wound Type: Surgical Incision - Suggestions for Active Care Change Position every (hours): 3 Hours to sit in a chair: 2 Times a day to sit in chair: 3 - Therapies Weight Bearing: Weight bearing as tolerated Physical Therapy: Eval and Treat Occupational Therapy: Eval and Treat - Allergies/Procedures Done in Hospital Allergies/Adverse Reactions: Allergies codeine Allergy (Unknown, Verified 02/14/19 01:37) Hives cefazolin Allergy (Verified 02/14/19 01:37) Rash ciprofloxacin [From Cipro] Allergy (Verified 02/14/19 01:37) Hives ciprofloxacin HCl [From Cipro] Allergy (Verified 02/14/19 01:37) Hives Latex, Natural Rubber Allergy (Verified 02/14/19 01:37) Rash Penicillins [PCN] Allergy (Verified 02/14/19 01:37) Hives vancomycin Allergy (Verified 02/14/19 01:37) Angioedema adhesive tape Adverse Reaction (Verified 02/14/19 01:37) Rash - Type of Care/Length of Stay Estimated LOS: Convalescent Care Less Than 30 days Type of Care Needed: Skilled Rehab Potential: Fair Prognosis: Fair - Additional Orders/Day of Discharge Additional Orders: BIPAP at night and with naps: EPAP-6. IPAP-12. Titrate. H&P will serve as current which was dated: 01/10/20 Day of Discharge: 02/18/19 - Dietary and Speech Recommendations Dietitian Recommendations/Changes: As medically able, rec JACINTO to 1600 emilio Cardiac/low sodium. Rec Ej bid to help w/ skin healing if indicated. Will provide 120 cc glucerna shake w/ meals instead of 240 cc. - Follow Up Care Primary Care Physician: Uriel Mac MD [Primary Care Provider] - Please follow up with your Primary Care Physician in: 1 week. Please Follow Up With: David Chand MD When: 10-14 days. Please Follow Up With: Shaheen Walters MD When: 2 weeks.
[2019-02-18] MEDS: Glucerna Shake 120 ML LIQUID PO (11:03)
[2019-02-18] MEDS: Doxycycline 100 MG CAPSULE PO (11:03)
[2019-02-18] MEDS: DULoxetine Hcl 60 MG Capsule PO (11:04)
[2019-02-18] MEDS: Ferrous Sulfate 325 MG Tablet PO (11:04)
[2019-02-18] MEDS: Furosemide 40 MG Tablet PO (11:04)
[2019-02-18] MEDS: Nystatin Powder 15gm Bottle 1 APPLIC TOPICAL (11:05)
[2019-02-18] MEDS: APIXABAN 2.5 MG TABLET PO (11:05)
[2019-02-18] MEDS: Pantoprazole Sodium 40 MG Tablet PO (11:05)
[2019-02-18] MEDS: amLODIPine 2.5 MG Tablet PO (11:05)
[2019-02-18] MEDS: Amiodarone 200 MG Tablet PO (11:05)
[2019-02-18] MEDS: Gabapentin 600 MG Tablet PO (11:05)
--- NOTE | 2019-02-18 11:05 | CASEMGMT ---
Social Work Note JAGDEEP placed a call to Quiana at [facility]. Quiana states pre-cert has been obtained and pt can discharge to [facility] today. JAGDEEP updated physician. Physician states pt is medically cleared for discharge. JAGDEEP faxed completed discharge paperwork to [facility] including transfer to extended care facility, signed medication list and any scripts. Original in SNF folder and copy on pt's chart. JAGDEEP placed a call to [facility] and arranged transportation via cot for 12:30pm. Transportation form completed and placed on SNF folder and copy on pt's chart. [facility] is not needed as pt is from skilled and will be returning skilled. JAGDEEP updated RN and pt on transportation time. Pt gave this worker permission to call her [facility] to update. JAGDEEP placed a call to pt's [facility] and updated her on discharge and transportation time. JAGDEEP placed call to Quiana at [facility] and updated her on transportation time. Plan: [facility] skilled today with [facility] transporting via cot at 12:30pm Digna Palumbo MSW, [employer]
[2019-02-18 11:55] LABS: Bedside Glucose 138 mg/dL (70-110)
--- NOTE | 2019-02-18 12:42 | NURSING ---
report called to [facility] and spoke with margarita mclaughlin
--- NOTE | 2019-02-18 13:08 | DS.PCM_ITS ---
Discharge Date and Diagnosis Date of Admission: 02/14/19 Date of Discharge: 02/18/19 - Primary Discharge Diagnosis #1 acute traumatic comminuted intertrochanteric right femoral fracture, status post open reduction and internal fixation with intramedullary nail. #2 acute kidney injury on top of stage III chronic kidney disease. #3 acute on chronic anemia required blood transfusion. #4 acute hypoxic respiratory failure due to recent CHF and pneumonia. #5 recent history of acute diastolic CHF. #6 recent history of community-acquired pneumonia with sepsis. - Secondary Discharge Diagnosis Chronic Problems (Last Reviewed 02/07/19 @ 00:24 by Oziel Angel MD) Venous insufficiency of both lower extremities (Chronic) Chronic GI bleeding (Chronic) GERD (gastroesophageal reflux disease) (Chronic) Dementia (Chronic) Restrictive airway disease (Chronic) LAURITA (obstructive sleep apnea) (Chronic) Essential hypertension (Chronic) Type 2 diabetes mellitus (Chronic) Diastolic CHF (Chronic) Iron deficiency anemia (Chronic) etiology unknown Ulcer of right lower extremity with fat layer exposed (Chronic) Ulcer of left lower extremity with fat layer exposed (Chronic) PVD (peripheral vascular disease) (Chronic) Presence of stent in coronary artery (Chronic ~08/29/12) PTCA/stent to CX; PTCA/Stent PTCA/stent to prox RCA 05/06; PTCA/LILY in mid to distal RCA 08/29/12 Atherosclerotic heart disease of [place] coronary artery without angina pectoris (Chronic) PTCA/stent to CX; PTCA/Stent PTCA/stent to prox RCA 05/06; PTCA/LILY in mid to distal RCA 08/29/12; CABG x2 ARREGUIN tp LAD and SVG to OM2 01/02/11 S/P CABG (coronary artery bypass graft) (Chronic ~01/02/11) CABG x2 ARREGUIN tp LAD and SVG to OM2 01/02/11 Paroxysmal atrial fibrillation (Chronic) Hyperlipidemia (Chronic) Hospital Course and Treatment Imaging Results: Clinical Impression(s) from Imaging Studies Brain CT 02/14/19 02:06 IMPRESSION: 1. No evidence of an acute intracranial abnormality. 2. Moderate bilateral periventricular and subcortical white matter chronic small vessel disease with age appropriate cerebral atrophy. 3. Moderate chronic paranasal sinus disease Electronically Signed: Adalberto Diop MD at 2:54 EST Tel , Service support , Hip/Pelvis X-Ray 02/14/19 02:07 IMPRESSION: 1. Comminuted intertrochanteric right femoral fracture. 2. Moderate bilateral hip osteoarthritic change with mild associated degenerative change of bilateral sacroiliac joints. Electronically Signed: Adalberto Diop MD at 3:37 EST Tel , Service support , Chest X-Ray 02/14/19 02:51 IMPRESSION: Patchy nodular airspace opacity in the right mid to upper lung, present potentially representing developing infiltrate versus contusion Electronically Signed: Adalberto Diop MD at 3:07 EST Tel , Service support , Hip X-Ray 02/14/19 16:15 IMPRESSION: Intraoperative demonstration of anatomic realignment of the subcapital fracture and placement of a gamma nail. No untoward bone, joint or hardware findings. Electronically Signed: Cecilia Marsh MD at 0:02 EST , Service support , Chest X-Ray 02/16/19 08:54 IMPRESSION: Left lower lung atelectasis or infiltrate. 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 Chand, orthopedic surgery. Operations: - - Open reduction and internal fixation of right femoral intertrochanteric fracture Procedures: None Summary of Care Provided: Patient seen and examined on the day of discharge and appeared to be stable to be discharged to nursing home facility. Respiratory status remained stable, remained on 3 L of oxygen and she has been tolerating BiPAP at night. Her right hip pain is manageable with the current pain medication regimen. Kidney function improved as well as hemoglobin hematocrit. Her other vital signs are stable. This is a 74 years old female patient presented to the emergency room because of mechanical fall and right hip pain, found to have acute traumatic comminuted intertrochanteric right femur fracture and she underwent open reduction and internal fixation. Postoperatively, she developed acute kidney injury on top of stage III chronic kidney disease and acute on chronic anemia. #1 acute traumatic comminuted intertrochanteric right femur fracture: Status post open reduction and internal fixation with intramedullary nail. Postoperative course complicated by increasing of her kidney function as well as dropping hemoglobin which was treated and stabilized. Postoperatively, patient developed mild erythema around the surgical site, orthopedic surgery evaluated the patient and mentioned that there is no significant evidence of postoperative wound infection but patient was started on doxycycline p.o. twice daily empirically. Patient remained afebrile and leukocytosis improved. #2 acute kidney injury on top of stage III chronic kidney disease: Baseline creatinine has been around 1.2 to 1.4 mg/dL. Creatinine went up to 2.2 mg/dL today. She received intermittent IV fluids and Lasix held. On the day of discharge, creatinine is 1.36, improved. Lasix was restarted. #3 acute on chronic anemia: She received 1 unit of packed RBCs. Hemoglobin was 7.5 g/dL, received 1 unit of packed RBCs and on discharge, hemoglobin was 8.8 g/dL. It is attributed to blood loss during surgery and hemodilution. Discharged on iron supplement. #4 recent acute diastolic CHF: Initially, Lasix held because of worsening kidney function. She was continued on metoprolol. She had 2D echocardiogram done few days ago that revealed ejection fraction of 65%. After kidney function stabilized, Lasix was restarted. #5 recent community-acquired pneumonia with sepsis: Completed 7 days of IV meropenem during her last admission. Has been afebrile. #6 acute hypoxic respiratory failure: Attributed to CHF and pneumonia. During this hospital stay, patient remained on oxygen at 3 L and she required up to 4 L sometimes. She remained on BiPAP at night which was tolerated. Upon discharge, she was discharged on BiPAP with the same settings at night and with naps as well as oxygen at 3 L during daytime. #6 CAD status post CABG: Stable, continued on Eliquis, metoprolol. #7 paroxysmal atrial fibrillation: Rate controlled, continued on amiodarone and metoprolol for rate control, continued on Eliquis for anticoagulation. #8 obstructive sleep apnea: Continue BiPAP at night and with naps.. #9 dementia: Continued on Aricept. 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 Recommended follow-up with wound care center as outpatient. Patient discharged to nursing home facility in a stable medical condition, discharged on doxycycline and admitted on p.o. twice daily empirically as recommended by orthopedic surgery, discharged on Lasix 40 mg p.o. twice daily, continued on BiPAP at night and with naps, oxygen during daytime at 3 L, discharged on Eliquis for history of A. fib and for DVT prophylaxis, discharged on tramadol PRN for pain, recommended to use Tylenol for pain control first, discharged on DuoNeb every 6 hours, continued on her other previous home medications without any changes including iron supplement, plan to follow-up with orthopedic surgery in 10 to 14 days, follow-up with pulmonology in 2 weeks, and recommended follow-up with PCP in 1 week. This note was generated with blinkbox dictation software. It may contain incorrect words, spelling, and punctuation that were not noted in checking the note before signing. - Physical Exam Vitals/I&O's: Vital Signs Temp Pulse Resp BP Pulse Ox 98.2 F 72 18 128/56 H 94 02/18/19 12:56 02/18/19 12:56 02/18/19 12:56 02/18/19 12:56 02/18/19 12:56 Oxygen Flow Rate (L/min) 3 Oxygen Delivery Method Nasal Cannula Weight: 196 lb 6.91 oz Body Mass Index (BMI) 37.0 Finger Stick Blood Glucose 112 Intake and Output for Last 24 Hours 02/16/19 02/17/19 02/18/19 23:59 23:59 23:59 Intake Total 972.5 / 972.5 360 / 580 420 / 420 Output Total 750 / 750 1300 / 1900 700 / 700 Balance 222.5 / 222.5 -940 / -1320 -280 / -280 General: Alert, Oriented x3, Cooperative, No apparent distress HEENT: Atraumatic, PERRLA, EOMI, Normocephalic Oral: Moist Mucosa, No Gingival or Mucosal Lesions/ Ulcerations Neck: Supple, No JVD, Negative Carotid Bruits, Trachea Midline, Thyroid Normal Size and Texture Lungs: Clear to auscultation, Normal air movement, No rhonchi, No wheeze, No rales, Diminished Cardiovascular: Regular rate, Regular Rhythm, Normal S1, Normal S2, PMI Normal Abdomen: Bowel Sounds Present, Soft, Non Tender, Non-Distended, No Hepato- splenomegaly, Distended Extremities: No clubbing, No cyanosis, Edema Skin: No rashes, Ulcer/ Wound Lymphatic: No Cervical, Supraclavicular, or Inguinal Adenopathy Neurological: Cranial nerves II-XII grossly intact, Neuro grossly intact Psych/Mental Status: Normal Affect, Appropriate Laboratory Results 02/17/19 08:55: Crossmatch See Detail 02/17/19 11:24: POC Glucose 88 02/17/19 16:35: POC Glucose 132 H 02/17/19 22:55: POC Glucose 123 H 02/18/19 05:00: WBC 11.1 H, RBC 3.24 L, Hgb 8.8 L, Hct 29.2 L, MCV 90.1, MCH 27.2, MCHC 30.1 L, RDW Std Deviation 50.3 H, RDW Coeff of Carissa 15.4 H, Plt Count 347, MPV 9.8, Immature Gran % (Auto) 1.500 H, Neut % (Auto) 75.0 H, Lymph % (Auto) 11.6 L, Granite % (Auto) 7.4, Eos % (Auto) 4.3, Baso % (Auto) 0.2, Absolute Neuts (auto) 8.3 H, Absolute Lymphs (auto) 1.29, Nucleated RBC % 0 02/18/19 05:00: Sodium 141, Potassium 4.7, Chloride 106, Carbon Dioxide 32.0, Anion Gap 3 L, BUN 36 H, Creatinine 1.36 H, Estim Creat Clear Calc 25.67, Est GFR (MDRD) Af Amer 49 L, Est GFR (MDRD) Non-Af 40 L, BUN/Creatinine Ratio 26.5 H , Glucose 97, Calcium 8.9 02/18/19 06:49: POC Glucose 96 02/18/19 11:15: POC Glucose 138 H Home Medications: Medications to take at Discharge Amiodarone HCl 200 mg PO DAILY 04/09/18 Duloxetine HCl 60 mg PO DAILY 04/09/18 Magnesium Oxide [Mag-Ox 400] 400 mg PO BID 04/09/18 Metoprolol Tartrate [Lopressor (beta man)] 50 mg PO BID 04/09/18 Pantoprazole Sodium [Protonix] 40 mg PO BID 04/09/18 Ergocalciferol (Vitamin D2) [Vitamin D2] 50,000 unit PO MO 05/22/18 Donepezil HCl 5 mg PO QHS 08/19/18 Potassium Chloride [Klor-Con M20] 20 meq PO BID 08/19/18 Amlodipine [Norvasc] 2.5 mg PO DAILY 12/13/18 hydrALAZINE [Apresoline] 50 mg PO TID 01/04/19 Acetaminophen [Tylenol Tablet] 650 mg PO Q6H PRN PRN tab 01/08/19 Gabapentin 600 mg PO BID 02/06/19 Apixaban [Eliquis] 2.5 mg PO BID 02/07/19 Furosemide [Lasix] 40 mg PO BID@1000,1800 #90 tab 02/13/19 Doxycycline 100 mg PO BID #20 cap 02/18/19 Ferrous Sulfate 325 mg PO BID #90 02/18/19 Ipratropium/Albuterol Sulfate [Duoneb] 3 ml INHALATION [id number] #30 ampul.neb 02/18/19 traMADol [Ultram] 50 mg PO TID PRN PRN 7 Days #20 tab 02/18/19 Following Prescrptions Were Given to Patient: Doxycycline 100 mg PO BID #20 cap Prescription Printed Ipratropium/Albuterol Sulfate [Duoneb] 3 ml INHALATION [id number] #30 ampul.neb Prescription Printed Ferrous Sulfate 325 mg PO BID #90 Prescription Printed traMADol [Ultram] 50 mg PO TID PRN PRN 7 Days #20 tab PRN Reason: Pain Score 4-5/10 Prescription Printed Primary Care Physician: Uriel Mac MD [Primary Care Provider] - Please follow up with your Primary Care Physician in: 1 week. Please Follow Up With: David Chand MD When: 10-14 days. Please Follow Up With: Shaheen Walters MD When: 2 weeks. Disposition: Group Home facility Minutes spent on discharge:: 36 Patient Condition:: Stable Medical Necessity - Tobacco Use Smoking Status: Former smoker Tobacco Use: Cigarettes Meaningful Use Info Meaningful Use Diagnoses (Choose all that apply): None applicable Code Visit Inpatient E&M: 03700 Disch Hosp
== END 2019-02-18 12:50 | disposition skilled nursing facility (03) | DRG 480 ==
LOC: ED 02:30 → MS3 04:30
PROVIDERS: Orthopaedic Surgery; Admitting Provider Internal Medicine; Emergency Provider Emergency Medicine; Family Provider Family Medicine; PCP Family Medicine; Referring Provider Internal Medicine; Visit Provider Hospitalist
PROC: 0QS606Z Reposition Right Upper Femur with Intramedullary Internal Fixation Device, Open Approach (ICD-10-PCS; CPT 27245; principal; 2019-02-14 08:45)
DX: S72.141A Displaced intertrochanteric fracture of right femur, initial encounter for closed fracture (principal); J96.01 Acute respiratory failure with hypoxia; N17.9 Acute kidney failure, unspecified; I50.32 Chronic diastolic (congestive) heart failure; I13.0 Hypertensive heart and chronic kidney disease with heart failure and stage 1 through stage 4 chronic kidney disease, or unspecified chronic kidney disease; L97.922 Non-pressure chronic ulcer of unspecified part of left lower leg with fat layer exposed; L97.912 Non-pressure chronic ulcer of unspecified part of right lower leg with fat layer exposed; D62 Acute posthemorrhagic anemia; I25.10 Atherosclerotic heart disease of native coronary artery without angina pectoris; I48.0 Paroxysmal atrial fibrillation; G47.33 Obstructive sleep apnea (adult) (pediatric); W18.30XA Fall on same level, unspecified, initial encounter; Y92.129 Unspecified place in nursing home as the place of occurrence of the external cause; F03.90 Unspecified dementia, unspecified severity, without behavioral disturbance, psychotic disturbance, mood disturbance, and anxiety; N18.3 Chronic kidney disease, stage 3 (moderate); Z79.01 Long term (current) use of anticoagulants; Z95.1 Presence of aortocoronary bypass graft; Z87.891 Personal history of nicotine dependence; I87.2 Venous insufficiency (chronic) (peripheral); K21.9 Gastro-esophageal reflux disease without esophagitis; Z95.5 Presence of coronary angioplasty implant and graft; E78.5 Hyperlipidemia, unspecified; I73.9 Peripheral vascular disease, unspecified; E11.22 Type 2 diabetes mellitus with diabetic chronic kidney disease; E11.622 Type 2 diabetes mellitus with other skin ulcer
CPT/HCPCS: 36415; 36600; 51702; 70450; 71045; 73502; 76000; 80048; 80053; 82803; 82962; 84484; 85025; 85610; 86850; 86900; 86901; 86920; 86922; 93005; 94002; 94003; 94640; 94668; 97110; 97116; 97162; 97167; 97530; 97535; 99251; 99285; 99406; C1713; J7030; J7040; P9016; A4216; G0463; J1940; J2405

== ENCOUNTER → 2019-02-28 10:42 | Outpatient (CLI) | payer MEDICARE, SELFPAY ==
[2019-02-14 13:46] VITALS: BMI 37.0
== END ==
PROVIDERS: Visit Provider Nurse Practitioner Family
DX: R05 Cough (principal)
CPT/HCPCS: 87633

== ENCOUNTER 2019-03-24 15:00 | Outpatient (RCR) | payer MEDICARE, SELFPAY ==
[2019-02-05 00:25] VITALS: BP 180/69; PULSE 68; RESP 16; TEMP 36.6
[2019-03-04 07:48] VITALS: BMI 42.7
[2019-03-17 14:17] VITALS: BP 156/51; PULSE 62; RESP 18; TEMP 36.1; BMI 42.7
--- NOTE | 2019-03-17 16:29 | PCM.WC.PN ---
(1) Ulcer of right lower extremity with fat layer exposed Status: Chronic Current Visit: Yes Code(s): L97.912 - Non-pressure chronic ulcer of unspecified part of right lower leg with fat layer exposed (2) Ulcer of left lower extremity with fat layer exposed Status: Chronic Current Visit: Yes Code(s): L97.922 - Non-pressure chronic ulcer of unspecified part of left lower leg with fat layer exposed (3) Venous insufficiency of both lower extremities Status: Chronic Current Visit: Yes Code(s): I87.2 - Venous insufficiency (chronic) (peripheral) (4) Peripheral vascular disease Status: Chronic Current Visit: Yes Code(s): I73.9 - Peripheral vascular disease, unspecified (5) Multiple sclerosis Status: Chronic Current Visit: Yes Code(s): G35 - Multiple sclerosis (6) Type 2 diabetes mellitus Status: Chronic Current Visit: Yes Qualifiers: Diabetes mellitus half-way insulin use: without 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 History of Wound: On 01/06/19 patient underwent surgery for 1. Surgical preparation right anterolateral leg with incision and drainage and evacuation and excisional debridement infected hematoma with overlying skin necrosis (85.5 cm2). 2. Surgical preparation right proximal posteromedial leg with incision and drainage and evacuation and excisional debridement infected hematom with overlying skin necrosis (22.5 cm2). 3. Surgical preparation left proximal posteromedial leg with incision and drainage and evacuation and excisional debridement infected hematoma with overlying skin necrosis (30 cm2). She had fallen a week prior at home. She has history of chronic bilateral leg edema with venous insufficiency as well as chronic bilateral leg wounds. Upon admission her Hgb was 7.8. She received PRBC. Because of the cellulitis, she was started on IV antibiotics. She has completed the Cleocin and Meropenem. Surgical wound culture to right anterior lateral ulcer positive for Klebsiella pneumoniae sp pneum. Cultures from right proximal posterior medial ulcer positive for Klebsiella pneumoniae sp pneum, Pseudomonas aeroginosa. Cultures from left proximal posterior medial ulcer positive for Klebsiella pneumoniae sp pneum. She has been staying at the [facility] and they have repeated not obtained transportation for her to come to the wound center to be evaulated. She missed her last several appointments because of this. Wound care is Dakin's solution. [facility] was having difficulty with her her wound VAC. We will change her wound care to Right Lateral leg ulcer will continue Dakins but the right posterior calf and the left medial leg we will apply Aquacel Ag daily. She has a history of frequent falls. She is currently at the [facility] since this past hospitalization. She denies fevers. Encouraged increase protein intake. Progress of Wound: stable - Physical Exam Vital Signs Temp Pulse Resp BP 97 F L 62 18 156/51 H 03/17/19 14:17 03/17/19 14:17 03/17/19 14:17 03/17/19 14:17 General: Alert, Oriented x3, Cooperative HEENT: Atraumatic Oral: Moist Mucosa Lungs: Normal air movement Cardiovascular: Regular rate Abdomen: Obese Extremities: Capillary Refill Less than 3 Seconds, Edema Skin: Ulcer/ Wound - right lateral leg, right posterior leg/calf and left medial leg ulcers Wound Measurements and Assessment WC - Nurse 1 - General Ulcer Measurement Start: 03/17/19 14:17 Freq: Status: Active Protocol: Activity Type Activity Date Activity User E-Sign Co-Sign Detail Recorded Client Recorded Date Recorded By Document 03/17/19 14:17 [facility] [id number] 03/17/19 14:23 [facility] 03/17/19 14:17 Wound Center Nurse 1 [Ulcer Assessment] #27- R POST LE -Combined with other wound No -Current Size (cm) - Length 3 -Current Size (cm) - Width 2.2 -Current Size (cm) - Depth 0.1 -Total Square Cm 6.6 -Date of Last Picture (Recall this 03/17/19 field) -Photo Taken Yes -Epithelialization Small 1-33% -Tunneling No -Undermining/Tunneling No -Circular Undermining No -Exudate Amt Small -Exudate Type Serosanguineous -Wound Margin Distinct, Outline Attached -Granulation Amt Large (67-100%) -Granulation Quality Hyper- granulation,Red -Slough/Fibrin Yes -Necrosis Amt Small (1-33%) -Necrotic Tissue Type Adherent Slough -Texture (Char-wound Skin Appearance) Assessed, Scarring -Moisture (Char-wound Skin Appearance Assessed,Dry/ ) Scaly -Color (Char-wound Skin Appearance) Assessed -Temperature (Char-wound Skin No Abnormality Appearance) (Pt Warm) -Tenderness on Palpation (Char-wound No Skin Appearance) -Ulcer Cleansing SOAPY WATER -Foul Odor after Cleansing No -Anesthetic Used 4% Lidocaine Solution #26- L POST LE -Combined with other wound No -Current Size (cm) - Length 2.2 -Current Size (cm) - Width 2 -Current Size (cm) - Depth 0.1 -Total Square Cm 4.4 -Date of Last Picture (Recall this 03/17/19 field) -Photo Taken Yes -Epithelialization Small 1-33% -Tunneling No -Undermining/Tunneling No -Circular Undermining No -Exudate Amt Small -Exudate Type Serosanguineous -Wound Margin Distinct, Outline Attached -Granulation Amt Large (67-100%) -Granulation Quality Red -Slough/Fibrin Yes -Necrosis Amt Small (1-33%) -Necrotic Tissue Type Adherent Slough -Texture (Char-wound Skin Appearance) Assessed, Scarring -Moisture (Char-wound Skin Appearance Assessed,Dry/ ) Scaly -Color (Char-wound Skin Appearance) Assessed -Temperature (Char-wound Skin No Abnormality Appearance) (Pt Warm) -Tenderness on Palpation (Char-wound No Skin Appearance) -Ulcer Cleansing SOAPY WATER -Foul Odor after Cleansing No -Anesthetic Used 4% Lidocaine Solution #25- R MCPHERSON/LATERAL LE -Combined with other wound No -Current Size (cm) - Length 7 -Current Size (cm) - Width 13 -Current Size (cm) - Depth 0.1 -Total Square Cm 91 -Date of Last Picture (Recall this 03/17/19 field) -Photo Taken Yes -Epithelialization Small 1-33% -Tunneling No -Undermining/Tunneling No -Circular Undermining No -Exudate Amt Large -Exudate Type Serosanguineous -Wound Margin Distinct, Outline Attached -Granulation Amt Large (67-100%) -Granulation Quality Hyper- granulation,Red -Slough/Fibrin No -Necrosis Amt None Present (0 %) -Texture (Char-wound Skin Appearance) Assessed, Scarring -Moisture (Char-wound Skin Appearance Assessed,Dry/ ) Scaly -Color (Char-wound Skin Appearance) Assessed -Temperature (Char-wound Skin No Abnormality Appearance) (Pt Warm) -Tenderness on Palpation (Char-wound No Skin Appearance) -Ulcer Cleansing SOAPY WATER -Foul Odor after Cleansing No -Anesthetic Used 4% Lidocaine Solution [Edema Assessment] -Lower Limb Edema Present Yes -Right Calf (cm) 41.4 -Right Ankle (cm) 29.2 -Left Calf (cm) 37 -Left Ankle (cm) 27 WC - Nurse 2 - General Ulcer CM Notes Start: 03/17/19 14:17 Freq: Status: Active Protocol: Activity Type Activity Date Activity User E-Sign Co-Sign Detail Recorded Client Recorded Date Recorded By Document 03/17/19 14:42 [facility] [id number] 03/17/19 14:53 [facility] 03/17/19 14:42 Wound Center Nurse 2 [Procedure/Treatment] #27- R POST LE -Time 14:47 -Correct Patient Yes -Correct Side, Site, Position Yes -Correct Procedure Yes -Procedure Performed Yes -Type of Procedure Debridement -Clinical Debridement Subcutaneous -Post Debridement Size (cm) - Length 2.8 -Post Debridement Size (cm) - Width 2.5 -Post Debridement Size (cm) - Depth 0.2 -Total Square Cm 7.00 -Wound/Ulcer Outcome Not Healed -Ulcer Cleansing Rinsed/ Irrigated with Saline -Foul Odor after Cleansing No -Bioengineered Tissue No -Bleeding Controlled with Pressure -Offloading No -Treatment Response Procedure Tolerated Well #26- L POST LE -Time 14:47 -Correct Patient Yes -Correct Side, Site, Position Yes -Correct Procedure Yes -Procedure Performed Yes -Type of Procedure Debridement -Clinical Debridement Subcutaneous -Post Debridement Size (cm) - Length 3.0 -Post Debridement Size (cm) - Width 1.2 -Post Debridement Size (cm) - Depth 0.1 -Total Square Cm 3.60 -Wound/Ulcer Outcome Not Healed -Ulcer Cleansing Rinsed/ Irrigated with Saline -Foul Odor after Cleansing No -Bioengineered Tissue No -Bleeding Controlled with Pressure -Offloading No -Treatment Response Procedure Tolerated Well #25- R MCPHERSON/LATERAL LE -Time 14:48 -Correct Patient Yes -Correct Side, Site, Position Yes -Correct Procedure Yes -Procedure Performed Yes -Type of Procedure Debridement -Clinical Debridement Subcutaneous -Post Debridement Size (cm) - Length 7.0 -Post Debridement Size (cm) - Width 12.5 -Post Debridement Size (cm) - Depth 0.1 -Total Square Cm 87.50 -Wound/Ulcer Outcome Not Healed -Ulcer Cleansing Rinsed/ Irrigated with Saline -Foul Odor after Cleansing No -Bioengineered Tissue No -Bleeding Controlled with Pressure -Offloading No -Treatment Response Procedure Tolerated Well [See Physician Procedure note for Specifics] Pain Scale: 0-10 Numeric [Pain] -Is Patient Pain Free? Yes Musculoskeletal: Tenderness Neurological: Neuro grossly intact Psych/Mental Status: Normal Affect, Appropriate Debridement Note Post-Debridement Measurements/Treatment WC - Nurse 2 - General Ulcer CM Notes Start: 03/17/19 14:17 Freq: Status: Active Protocol: Activity Type Activity Date Activity User E-Sign Co-Sign Detail Recorded Client Recorded Date Recorded By Document 03/17/19 14:42 [facility] [id number] 03/17/19 14:53 [facility] 03/17/19 14:42 Wound Center Nurse 2 #27- R POST LE -Time 14:47 -Correct Patient Yes -Correct Side, Site, Position Yes -Correct Procedure Yes -Procedure Performed Yes -Type of Procedure Debridement -Clinical Debridement Subcutaneous -Post Debridement Size (cm) - Length 2.8 -Post Debridement Size (cm) - Width 2.5 -Post Debridement Size (cm) - Depth 0.2 -Total Square Cm 7.00 -Wound/Ulcer Outcome Not Healed -Ulcer Cleansing Rinsed/ Irrigated with Saline -Foul Odor after Cleansing No -Bioengineered Tissue No -Bleeding Controlled with Pressure -Offloading No -Treatment Response Procedure Tolerated Well #26- L POST LE -Time 14:47 -Correct Patient Yes -Correct Side, Site, Position Yes -Correct Procedure Yes -Procedure Performed Yes -Type of Procedure Debridement -Clinical Debridement Subcutaneous -Post Debridement Size (cm) - Length 3.0 -Post Debridement Size (cm) - Width 1.2 -Post Debridement Size (cm) - Depth 0.1 -Total Square Cm 3.60 -Wound/Ulcer Outcome Not Healed -Ulcer Cleansing Rinsed/ Irrigated with Saline -Foul Odor after Cleansing No -Bioengineered Tissue No -Bleeding Controlled with Pressure -Offloading No -Treatment Response Procedure Tolerated Well #25- R MCPHERSON/LATERAL LE -Time 14:48 -Correct Patient Yes -Correct Side, Site, Position Yes -Correct Procedure Yes -Procedure Performed Yes -Type of Procedure Debridement -Clinical Debridement Subcutaneous -Post Debridement Size (cm) - Length 7.0 -Post Debridement Size (cm) - Width 12.5 -Post Debridement Size (cm) - Depth 0.1 -Total Square Cm 87.50 -Wound/Ulcer Outcome Not Healed -Ulcer Cleansing Rinsed/ Irrigated with Saline -Foul Odor after Cleansing No -Bioengineered Tissue No -Bleeding Controlled with Pressure -Offloading No -Treatment Response Procedure Tolerated Well Pain Scale: 0-10 Numeric Is Patient Pain Free? Yes Wound debrided: lateral leg ulcer Laterality: Right Type of Debridement: Excisional debridement Anesthesia Used: 5% Lidocaine Gel Depth: Down to and including healthy tissue, in the subcutaneous layer Percentage of wound debrided: 100 Instrument Used: 7mm curette Tissue Removed: Subcutaneous tissue and slough Severity: Fat Layer Exposed Amount of bleeding with debridement: Mild Bleeding Controlled with: Pressure Patient tolerated procedure well - Additional Wound Wound debrided: posterior leg/calf ulcer Laterality: Right Type of Debridement: Excisional debridement Anesthesia Used: 5% Lidocaine Gel Depth: Down to and including healthy tissue, in the subcutaneous layer Percentage of wound debrided: 100 Instrument Used: 5mm curette Tissue Removed: Subcutaneous tissue and slough Severity: Fat Layer Exposed Amount of bleeding with debridement: Mild Bleeding Controlled with: Pressure - Additional Wound Wound debrided: medial leg ulcer Laterality: Left Type of Debridement: Excisional debridement Anesthesia Used: 5% Lidocaine Gel Depth: Down to and including healthy tissue, in the subcutaneous layer Percentage of wound debrided: 100 Instrument Used: 5mm curette Tissue Removed: Subcutaneous tissue and slough Severity: Fat Layer Exposed Amount of bleeding with debridement: Mild Bleeding Controlled with: Pressure Patient tolerated procedure: Patient tolerated procedure well Assessment/Plan Active Problems (Last Reviewed 03/05/19 @ 08:46 by Leilani Carey NP-C) Peripheral vascular disease (Chronic) Multiple sclerosis (Chronic) Venous insufficiency of both lower extremities (Chronic) Type 2 diabetes mellitus (Chronic) Ulcer of right lower extremity with fat layer exposed (Chronic) Ulcer of left lower extremity with fat layer exposed (Chronic) Assessment: 1. Ulcer of right lower extremity with fat layer exposed. 2. Ulcer of left lower extremity with fat layer exposed. 3. Venous insufficiency of both lower extremities. 4. Type 2 diabetes mellitus. 5. Multiple sclerosis Plan: On 01/06/19 patient underwent surgery for 1. Surgical preparation right anterolateral leg with incision and drainage and evacuation and excisional debridement infected hematoma with overlying skin necrosis (85.5 cm2). 2. Surgical preparation right proximal posteromedial leg with incision and drainage and evacuation and excisional debridement infected hematom with overlying skin necrosis (22.5 cm2). 3. Surgical preparation left proximal posteromedial leg with incision and drainage and evacuation and excisional debridement infected hematoma with overlying skin necrosis (30 cm2). She had fallen a week prior at home. She has history of chronic bilateral leg edema with venous insufficiency as well as chronic bilateral leg wounds. Upon admission her Hgb was 7.8. She received PRBC. Because of the cellulitis, she was started on IV antibiotics. She completed Cleocin and Meropenem. Surgical wound culture to right anterior lateral ulcer positive for Klebsiella pneumoniae sp pneum. Cultures from right proximal posterior medial ulcer positive for Klebsiella pneumoniae sp pneum, Pseudomonas aeroginosa. Cultures from left proximal posterior medial ulcer positive for Klebsiella pneumoniae sp pneum. Wound care: stop VAC per patient request. Will do daily 1/4 strength Dakin's solution to the right lateral leg ulcer and Aquacel Ag to the right posterior leg and left medial leg ulcers. Tubigrip topped with JASMINE wrap for compression. She has a history of frequent falls. She is currently at the [facility] since this past hospitalization. She denies fevers. Encouraged increase protein intake. Follow up two weeks.
[2019-03-24 14:37] VITALS: BP 142/73; PULSE 61; RESP 16; TEMP 36.6; BMI 42.7
[2019-03-24 15:00] VITALS: BP 142/73; PULSE 61; RESP 18; TEMP 36.6; BMI 42.7
--- NOTE | 2019-03-24 16:30 | PCM.WC.PN ---
(1) Ulcer of right lower extremity with fat layer exposed Status: Chronic Code(s): L97.912 - Non-pressure chronic ulcer of unspecified part of right lower leg with fat layer exposed (2) Ulcer of left lower extremity with fat layer exposed Status: Chronic Code(s): L97.922 - Non-pressure chronic ulcer of unspecified part of left lower leg with fat layer exposed (3) Venous insufficiency of both lower extremities Status: Chronic Code(s): I87.2 - Venous insufficiency (chronic) (peripheral) (4) Peripheral vascular disease Status: Chronic Code(s): I73.9 - Peripheral vascular disease, unspecified (5) Multiple sclerosis Status: Chronic Code(s): G35 - Multiple sclerosis (6) Type 2 diabetes mellitus Status: Chronic Qualifiers: 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 History of Wound: On 01/06/19 patient underwent surgery for 1. Surgical preparation right anterolateral leg with incision and drainage and evacuation and excisional debridement infected hematoma with overlying skin necrosis (85.5 cm2). 2. Surgical preparation right proximal posteromedial leg with incision and drainage and evacuation and excisional debridement infected hematom with overlying skin necrosis (22.5 cm2). 3. Surgical preparation left proximal posteromedial leg with incision and drainage and evacuation and excisional debridement infected hematoma with overlying skin necrosis (30 cm2). She had fallen a week prior at home. She has history of chronic bilateral leg edema with venous insufficiency as well as chronic bilateral leg wounds. Upon admission her Hgb was 7.8. She received PRBC. Because of the cellulitis, she was started on IV antibiotics. She has completed the Cleocin and Meropenem. Surgical wound culture to right anterior lateral ulcer positive for Klebsiella pneumoniae sp pneum. Cultures from right proximal posterior medial ulcer positive for Klebsiella pneumoniae sp pneum, Pseudomonas aeroginosa. Cultures from left proximal posterior medial ulcer positive for Klebsiella pneumoniae sp pneum. She has been staying at the [facility] and they have repeated not obtained transportation for her to come to the wound center to be evaulated. She missed her last several appointments because of this. The [facility] was having difficulty with her her wound VAC. We will change her wound care to Right Lateral leg ulcer will continue Dakins but the right posterior calf and the left medial leg we will apply Aquacel Ag daily. She has a history of frequent falls. She is currently at the [facility] since this past hospitalization. She denies fevers. Encouraged increase protein intake. Progress of Wound: Improved - Physical Exam Vital Signs Temp Pulse Resp BP 97.8 F 61 18 142/73 H 03/24/19 15:00 03/24/19 15:00 03/24/19 15:00 03/24/19 15:00 General: Alert, Oriented x3, Cooperative HEENT: Atraumatic Oral: Moist Mucosa Lungs: Normal air movement Cardiovascular: Regular rate Abdomen: Obese Extremities: Capillary Refill Less than 3 Seconds, Edema Skin: Ulcer/ Wound - Right lateral leg ulcer, right posterior leg ulcer and left medial leg ulcer Wound Measurements and Assessment WC - Nurse 1 - General Ulcer Measurement Start: 03/17/19 14:17 Freq: Status: Active Protocol: Activity Type Activity Date Activity User E-Sign Co-Sign Detail Recorded Client Recorded Date Recorded By Document 03/24/19 15:00 DL [id number] 03/24/19 15:04 DL 03/24/19 15:00 Wound Center Nurse 1 [Ulcer Assessment] #27- R POST LE -Current Size (cm) - Length 2.4 -Current Size (cm) - Width 2 -Current Size (cm) - Depth 0.1 -Total Square Cm 4.8 -Photo Taken No -Exudate Amt Small -Exudate Type Serosanguineous -Wound Margin Distinct, Outline Attached -Granulation Amt Large (67-100%) -Granulation Quality Red -Necrosis Amt Small (1-33%) -Necrotic Tissue Type Adherent Slough -Structure Exposed N/A -Texture (Char-wound Skin Appearance) Scarring -Moisture (Char-wound Skin Appearance No Abnormality ) -Color (Char-wound Skin Appearance) Hemosiderin Staining -Temperature (Char-wound Skin No Abnormality Appearance) (Pt Warm) -Ulcer Cleansing Rinsed/ Irrigated with Saline -Foul Odor after Cleansing No -Anesthetic Used 4% Lidocaine Solution #26- L POST LE -Current Size (cm) - Length 1.5 -Current Size (cm) - Width 1 -Current Size (cm) - Depth 0.1 -Total Square Cm 1.5 -Photo Taken No -Exudate Amt Small -Exudate Type Serosanguineous -Wound Margin Distinct, Outline Attached -Granulation Amt Medium (34-66%) -Granulation Quality Red -Necrotic Tissue Type Adherent Slough -Structure Exposed N/A -Texture (Char-wound Skin Appearance) Localized Edema -Moisture (Char-wound Skin Appearance No Abnormality ) -Color (Char-wound Skin Appearance) Hemosiderin Staining -Temperature (Char-wound Skin No Abnormality Appearance) (Pt Warm) -Tenderness on Palpation (Char-wound No Skin Appearance) -Ulcer Cleansing Wound Cleanser -Foul Odor after Cleansing No -Anesthetic Used 4% Lidocaine Solution #25- R MCPHERSON/LATERAL LE -Current Size (cm) - Length 6.5 -Current Size (cm) - Width 12 -Current Size (cm) - Depth 0.1 -Total Square Cm 78.0 -Photo Taken No -Exudate Amt Small -Exudate Type Serosanguineous -Wound Margin Distinct, Outline Attached -Granulation Amt Large (67-100%) -Granulation Quality Red -Necrosis Amt Small (1-33%) -Necrotic Tissue Type Adherent Slough -Structure Exposed N/A -Texture (Char-wound Skin Appearance) Scarring -Moisture (Char-wound Skin Appearance No Abnormality ) -Color (Char-wound Skin Appearance) No Abnormality -Tenderness on Palpation (Char-wound No Skin Appearance) -Ulcer Cleansing Wound Cleanser -Foul Odor after Cleansing No -Anesthetic Used 4% Lidocaine Solution [Edema Assessment] -Right Calf (cm) 42 -Right Ankle (cm) 28 -Right Foot (cm) 32.5 -Left Calf (cm) 26.2 WC - Nurse 2 - General Ulcer CM Notes Start: 03/17/19 14:17 Freq: Status: Active Protocol: Activity Type Activity Date Activity User E-Sign Co-Sign Detail Recorded Client Recorded Date Recorded By Document 03/24/19 15:31 MW [id number] 03/24/19 15:38 MW 03/24/19 15:31 Wound Center Nurse 2 [Procedure/Treatment] #27- R POST LE -Time 15:34 -Correct Patient Yes -Correct Side, Site, Position Yes -Correct Procedure Yes -Procedure Performed Yes -Type of Procedure Debridement -Clinical Debridement Subcutaneous -Post Debridement Size (cm) - Length 2.5 -Post Debridement Size (cm) - Width 2.0 -Post Debridement Size (cm) - Depth 0.1 -Total Square Cm 5.00 -Wound/Ulcer Outcome Not Healed -Ulcer Cleansing Rinsed/ Irrigated with Saline -Foul Odor after Cleansing No -Bioengineered Tissue No -Bleeding Controlled with Pressure -Offloading No -Treatment Response Procedure Tolerated Well #26- L POST LE -Time 15:35 -Correct Patient Yes -Correct Side, Site, Position Yes -Correct Procedure Yes -Procedure Performed Yes -Type of Procedure Debridement -Clinical Debridement Subcutaneous -Post Debridement Size (cm) - Length 2.5 -Post Debridement Size (cm) - Width 1.3 -Post Debridement Size (cm) - Depth 0.1 -Total Square Cm 3.25 -Wound/Ulcer Outcome Not Healed -Ulcer Cleansing Rinsed/ Irrigated with Saline -Foul Odor after Cleansing No -Bioengineered Tissue No -Bleeding Controlled with Pressure -Offloading No -Treatment Response Procedure Tolerated Well #25- R MCPHERSON/LATERAL LE -Time 15:33 -Correct Patient Yes -Correct Side, Site, Position Yes -Correct Procedure Yes -Procedure Performed Yes -Type of Procedure Debridement -Clinical Debridement Subcutaneous -Post Debridement Size (cm) - Length 6.5 -Post Debridement Size (cm) - Width 11.8 -Post Debridement Size (cm) - Depth 0.4 -Total Square Cm 76.70 -Wound/Ulcer Outcome Not Healed -Ulcer Cleansing Rinsed/ Irrigated with Saline -Foul Odor after Cleansing No -Bioengineered Tissue No -Bleeding Controlled with Pressure -Offloading No -Treatment Response Procedure Tolerated Well [See Physician Procedure note for Specifics] Pain Scale: 0-10 Numeric [Pain] -Is Patient Pain Free? Yes Musculoskeletal: No Tenderness to Palpation of Joints or Extremities Neurological: Neuro grossly intact Psych/Mental Status: Normal Affect, Appropriate Debridement Note Post-Debridement Measurements/Treatment WC - Nurse 2 - General Ulcer CM Notes Start: 03/17/19 14:17 Freq: Status: Active Protocol: Activity Type Activity Date Activity User E-Sign Co-Sign Detail Recorded Client Recorded Date Recorded By Document 03/17/19 14:42 [id number] 03/17/19 14:53 Document 03/24/19 15:31 [id number] 03/24/19 15:38 MW 03/17/19 02 14:42 15:31 Wound Center Nurse 2 #27- R POST LE -Time 14:47 15:34 -Correct Patient Yes Yes -Correct Side, Site, Position Yes Yes -Correct Procedure Yes Yes -Procedure Performed Yes Yes -Type of Procedure Debridement Debridement -Clinical Debridement Subcutaneous Subcutaneous -Post Debridement Size (cm) - Length 2.8 2.5 -Post Debridement Size (cm) - Width 2.5 2.0 -Post Debridement Size (cm) - Depth 0.2 0.1 -Total Square Cm 7.00 5.00 -Wound/Ulcer Outcome Not Healed Not Healed -Ulcer Cleansing Rinsed/ Rinsed/ Irrigated with Irrigated with Saline Saline -Foul Odor after Cleansing No No -Bioengineered Tissue No No -Bleeding Controlled with Pressure Pressure -Offloading No No -Treatment Response Procedure Procedure Tolerated Well Tolerated Well #26- L POST LE -Time 14:47 15:35 -Correct Patient Yes Yes -Correct Side, Site, Position Yes Yes -Correct Procedure Yes Yes -Procedure Performed Yes Yes -Type of Procedure Debridement Debridement -Clinical Debridement Subcutaneous Subcutaneous -Post Debridement Size (cm) - Length 3.0 2.5 -Post Debridement Size (cm) - Width 1.2 1.3 -Post Debridement Size (cm) - Depth 0.1 0.1 -Total Square Cm 3.60 3.25 -Wound/Ulcer Outcome Not Healed Not Healed -Ulcer Cleansing Rinsed/ Rinsed/ Irrigated with Irrigated with Saline Saline -Foul Odor after Cleansing No No -Bioengineered Tissue No No -Bleeding Controlled with Pressure Pressure -Offloading No No -Treatment Response Procedure Procedure Tolerated Well Tolerated Well #25- R MCPHERSON/LATERAL LE -Time 14:48 15:33 -Correct Patient Yes Yes -Correct Side, Site, Position Yes Yes -Correct Procedure Yes Yes -Procedure Performed Yes Yes -Type of Procedure Debridement Debridement -Clinical Debridement Subcutaneous Subcutaneous -Post Debridement Size (cm) - Length 7.0 6.5 -Post Debridement Size (cm) - Width 12.5 11.8 -Post Debridement Size (cm) - Depth 0.1 0.4 -Total Square Cm 87.50 76.70 -Wound/Ulcer Outcome Not Healed Not Healed -Ulcer Cleansing Rinsed/ Rinsed/ Irrigated with Irrigated with Saline Saline -Foul Odor after Cleansing No No -Bioengineered Tissue No No -Bleeding Controlled with Pressure Pressure -Offloading No No -Treatment Response Procedure Procedure Tolerated Well Tolerated Well Pain Scale: 0-10 Numeric Is Patient Pain Free? Yes Yes Wound debrided: lateral leg ulcer Laterality: Right Type of Debridement: Excisional debridement Anesthesia Used: 5% Lidocaine Gel Depth: Down to and including healthy tissue, in the subcutaneous layer Percentage of wound debrided: 100 Instrument Used: 5mm curette Tissue Removed: subcutaneous tissue and slough Severity: Fat Layer Exposed Amount of bleeding with debridement: Mild Bleeding Controlled with: Pressure Patient tolerated procedure well - Additional Wound Wound debrided: posterior leg ulcer Laterality: Right Type of Debridement: Excisional debridement Anesthesia Used: 5% Lidocaine Gel Depth: Down to and including healthy tissue, in the subcutaneous layer Percentage of wound debrided: 100 Instrument Used: 5mm curette Tissue Removed: Subcutaneous tissue and slough Severity: Fat Layer Exposed Amount of bleeding with debridement: Mild Bleeding Controlled with: Pressure Patient tolerated procedure: Patient tolerated procedure well - Additional Wound Wound debrided: medial leg ulcer Laterality: Left Type of Debridement: Excisional debridement Anesthesia Used: 5% Lidocaine Gel Depth: Down to and including healthy tissue, in the subcutaneous layer Percentage of wound debrided: 100 Instrument Used: 5mm curette Tissue Removed: Subcutaneous tissue and slough Severity: Fat Layer Exposed Amount of bleeding with debridement: Mild Bleeding Controlled with: Pressure Patient tolerated procedure: Patient tolerated procedure well Assessment/Plan Assessment: 1. Ulcer of right lower extremity with fat layer exposed. 2. Ulcer of left lower extremity with fat layer exposed. 3. Venous insufficiency of both lower extremities. 4. Type 2 diabetes mellitus. 5. Multiple sclerosis Plan: On 01/06/19 patient underwent surgery for 1. Surgical preparation right anterolateral leg with incision and drainage and evacuation and excisional debridement infected hematoma with overlying skin necrosis (85.5 cm2). 2. Surgical preparation right proximal posteromedial leg with incision and drainage and evacuation and excisional debridement infected hematom with overlying skin necrosis (22.5 cm2). 3. Surgical preparation left proximal posteromedial leg with incision and drainage and evacuation and excisional debridement infected hematoma with overlying skin necrosis (30 cm2). She had fallen a week prior at home. She has history of chronic bilateral leg edema with venous insufficiency as well as chronic bilateral leg wounds. Upon admission her Hgb was 7.8. She received PRBC. Because of the cellulitis, she was started on IV antibiotics. She completed Cleocin and Meropenem. Surgical wound culture to right anterior lateral ulcer positive for Klebsiella pneumoniae sp pneum. Cultures from right proximal posterior medial ulcer positive for Klebsiella pneumoniae sp pneum, Pseudomonas aeroginosa. Cultures from left proximal posterior medial ulcer positive for Klebsiella pneumoniae sp pneum. Wound care: stop VAC per patient request. Will do daily 1/4 strength Dakin's solution to the right lateral leg ulcer and Aquacel Ag to the right posterior leg and left medial leg ulcers. Tubigrip topped with JASMINE wrap for compression. She has a history of frequent falls. She is currently at the [facility] since this past hospitalization. She denies fevers. Encouraged increase protein intake. Follow up two weeks. Code Visit [id number]: [id number] Dari subq tissue 20 sq cm/< Add On Codes: 21910 Dari subq tissue add-on - x4
== END 2019-04-05 23:59 ==
LOC: WC 15:00
PROVIDERS: Family Provider Family Medicine Geriatric Medicine; Referring Provider Podiatrist; Visit Provider Internal Medicine
DX: E11.622 Type 2 diabetes mellitus with other skin ulcer (principal); L97.822 Non-pressure chronic ulcer of other part of left lower leg with fat layer exposed; I87.2 Venous insufficiency (chronic) (peripheral); E11.51 Type 2 diabetes mellitus with diabetic peripheral angiopathy without gangrene; G35 Multiple sclerosis; R29.6 Repeated falls; L97.812 Non-pressure chronic ulcer of other part of right lower leg with fat layer exposed; L97.212 Non-pressure chronic ulcer of right calf with fat layer exposed
CPT/HCPCS: 11042; 11045

== ENCOUNTER → 2019-04-23 15:36 | Outpatient (CLI) | payer MEDICARE, SELFPAY ==
[2019-04-07 14:16] VITALS: BMI 42.7
[2019-04-23 16:15] LABS: Absolute Lymphocyte Count 1.17 X10^3/uL (0.83-4.51); Absolute Neutrophil Count 14.5 X10^3/uL (2.0-7.7); Basophil# 0.03 X10^3/uL; Basophil% 0.2 % (0-1); Eosinophil# 0.01 X10^3/uL; Eosinophils% 0.1 % (0-5); Hematocrit 45.4 % (37-47); Hemoglobin 14.1 g/dL (12.0-15.0); Lymphocyte # 1.17 X10^3/ul (4.0); Lymphocyte % 6.8 % (19-41); Mean Corp Hgb Conc 31.1 g/dL (32-36); Mean Corpuscular Volume 93.2 fL (81-99); Mean Platelet Vol. 10.5 fl (6.2-12.0); Monocyte# 1.39 X10^3/uL; Monocyte% 8.1 % (0-10); NRBC Flagged by Analyzer 0 % (0-5); Neutrophil % 84.1 % (47-70); Platelet Count 329 K/mm3 (150-450); RBC Distribution Width CV 15.7 % (11.6-14.6); RBC Distribution Width SD 53.3 fl (35.1-43.9); Red Blood Count 4.87 M/mm3 (4.2-5.4); White Blood Count 17.2 K/mm3 (4.4-11.0)
[2019-04-23 17:08] LABS: ALB/GLOB Ratio 0.8 RATIO (0.9-2.4); AST(SGOT) 20 U/L (15-37); Alanine Aminotransfer ALT/SGPT 30 U/L (13-56); Alkaline Phosphatase 115 U/L (45-117); Anion Gap 7 (5-15); BUN 27 mg/dL (7-18); BUN/Creat Ratio 20.8 RATIO (10-20); Chloride 106 mmol/L (98-107); Cholesterol 233 mg/dL (200); EST Glomerular Filtration Rate 42 mL/min (>60); Est Glom Filt Rate - Afr Amer 51 mL/min (>60); Globulin 3.7 g/dL (2.2-4.2); Glucose 116 mg/dL (74-106); High Density Lipoprotein 61 mg/dL; Potassium 3.4 mmol/L (3.5-5.1); Protein, Total 6.7 g/dL (6.4-8.2); Sodium Level 140 mmol/L (136-145); Thyroid Stim Hormone (TSH) 0.39 uIU/mL (0.358-3.74); Triglycerides 181 mg/dL; Very Low Density Lipoprotein 36 mg/dL (5-40)
== END ==
PROVIDERS: Visit Provider Family Medicine Geriatric Medicine
DX: E78.5 Hyperlipidemia, unspecified (principal); I10 Essential (primary) hypertension
CPT/HCPCS: 36415; 80053; 80061; 84443; 85025

== ENCOUNTER 2019-04-28 13:00 | Outpatient (RCR) | payer MEDICARE, SELFPAY ==
[2019-04-06 00:07] VITALS: BP 142/73; PULSE 61; RESP 18; TEMP 36.6
[2019-04-07 14:16] VITALS: BP 177/61; PULSE 60; RESP 18; TEMP 36.5; BMI 42.7
--- NOTE | 2019-04-07 16:30 | PN.PCM_ITS ---
(1) Ulcer of left lower extremity with fat layer exposed Status: Chronic Current Visit: Yes Code(s): L97.922 - Non-pressure chronic ulcer of unspecified part of left lower leg with fat layer exposed (2) Ulcer of right lower extremity with fat layer exposed Status: Chronic Current Visit: Yes Code(s): L97.912 - Non-pressure chronic ulcer of unspecified part of right lower leg with fat layer exposed (3) Lymphedema Status: Chronic Current Visit: Yes Code(s): I89.0 - Lymphedema, not elsewhere classified (4) Peripheral vascular disease Status: Chronic Current Visit: Yes Code(s): I73.9 - Peripheral vascular disease, unspecified (5) Venous insufficiency of both lower extremities Status: Chronic Current Visit: Yes Code(s): I87.2 - Venous insufficiency (chronic) (peripheral) (6) Type 2 diabetes mellitus Status: Chronic Current Visit: Yes Qualifiers: Diabetes mellitus assisted insulin use: without assisted use Diabetes mellitus complication status: with other specified complication Qualified Code(s): E11.69 - Type 2 diabetes mellitus with other specified complication Code(s): E11.9 - Type 2 diabetes mellitus without complications Type of Wound Date of Service: 04/07/19 Chief Complaint: Right anterior lateral leg ulcer, right posterior ulcer and left posterior leg ulcer. History of Wound: On 01/06/19 patient underwent surgery for 1. Surgical preparation right anterolateral leg with incision and drainage and evacuation and excisional debridement infected hematoma with overlying skin necrosis (85.5 cm2). 2. Surgical preparation right proximal posteromedial leg with incision and drainage and evacuation and excisional debridement infected hematom with overlying skin necrosis (22.5 cm2). 3. Surgical preparation left proximal posteromedial leg with incision and drainage and evacuation and excisional debridement infected hematoma with overlying skin necrosis (30 cm2). She had fallen a week prior at home. She has history of chronic bilateral leg edema with venous insufficiency as well as chronic bilateral leg wounds. Upon admission her Hgb was 7.8. She received PRBC. Because of the cellulitis, she was started on IV antibiotics. She has completed the Cleocin and Meropenem. Surgical wound culture to right anterior lateral ulcer positive for Klebsiella pneumoniae sp pneum. Cultures from right proximal posterior medial ulcer positive for Klebsiella pneumoniae sp pneum, Pseudomonas aeroginosa. Cultures fr om left proximal posterior medial ulcer positive for Klebsiella pneumoniae sp pneum. She has been staying at the [facility] and had issues with transportation issues which meant she missed several appointments at the wound center. The [facility] was having difficulty with her her wound VAC so we changed her wound care to Silver. The right posterior calf is healed and the left medial leg and right lateral leg ulcer we will apply Aquacel Ag daily. She has a history of frequent falls. She is currently at the [facility] since this past hospitalization. She states she is scheduled to go home tomorrow. She denies fevers. Encouraged increase protein intake. Progress of Wound: Left posterior ulcer is healed today. Right anterior and right posterior ulcers are improved. - Physical Exam Vital Signs Temp Pulse Resp BP 97.7 F L 60 18 177/61 H 04/07/19 14:16 04/07/19 14:16 04/07/19 14:16 04/07/19 14:16 General: Alert, Oriented x3, Cooperative HEENT: Atraumatic Oral: Moist Mucosa Lungs: Normal air movement Cardiovascular: Regular rate Abdomen: Soft Extremities: Capillary Refill Less than 3 Seconds, Diminished Peripheral Pulses - +3 pitting edema of bilateral lower leg, ankles and feet., Edema Skin: Ulcer/ Wound - left posterior ulcer is healed. Right anterior and posterior ulcers are improved. Wound Measurements and Assessment WC - Nurse 1 - General Ulcer Measurement Start: 04/07/19 14:16 Freq: Status: Active Protocol: Activity Type Activity Date Activity User E-Sign Co-Sign Detail Recorded Client Recorded Date Recorded By Document 04/07/19 14:16 DL [id number] 04/07/19 14:28 DL 04/07/19 14:16 Wound Center Nurse 1 [Ulcer Assessment] #27- R POST LE -Combined with other wound No -Current Size (cm) - Length 1.5 -Current Size (cm) - Width 1 -Current Size (cm) - Depth 0.1 -Total Square Cm 1.5 -Date of Last Picture (Recall this 04/07/19 field) -Photo Taken Yes -Epithelialization Small 1-33% -Tunneling No -Undermining/Tunneling No -Circular Undermining No -Exudate Amt Small -Exudate Type Serous -Wound Margin Distinct, Outline Attached -Granulation Amt Large (67-100%) -Granulation Quality Pale,Red -Slough/Fibrin Yes -Necrosis Amt Small (1-33%) -Necrotic Tissue Type Adherent Slough -Texture (Char-wound Skin Appearance) Assessed, Scarring -Moisture (Char-wound Skin Appearance Assessed,Dry/ ) Scaly -Color (Char-wound Skin Appearance) Assessed -Temperature (Char-wound Skin No Abnormality Appearance) (Pt Warm) -Tenderness on Palpation (Char-wound No Skin Appearance) -Ulcer Cleansing Rinsed/ Irrigated with Saline -Foul Odor after Cleansing No -Anesthetic Used 4% Lidocaine Solution #26- L POST LE -Combined with other wound No -Current Size (cm) - Length 0.4 -Current Size (cm) - Width 0.5 -Current Size (cm) - Depth 0.1 -Total Square Cm 0.20 -Date of Last Picture (Recall this 04/07/19 field) -Photo Taken Yes -Epithelialization Medium 34-66% -Tunneling No -Undermining/Tunneling No -Circular Undermining No -Exudate Amt Small -Exudate Type Serous -Wound Margin Distinct, Outline Attached -Granulation Amt Large (67-100%) -Granulation Quality Pale,Red -Slough/Fibrin Yes -Necrosis Amt Small (1-33%) -Necrotic Tissue Type Adherent Slough -Texture (Char-wound Skin Appearance) Assessed, Scarring -Moisture (Char-wound Skin Appearance Assessed,Dry/ ) Scaly -Color (Char-wound Skin Appearance) Assessed -Temperature (Char-wound Skin No Abnormality Appearance) (Pt Warm) -Tenderness on Palpation (Char-wound No Skin Appearance) -Ulcer Cleansing Rinsed/ Irrigated with Saline -Foul Odor after Cleansing No -Anesthetic Used 4% Lidocaine Solution #25- R MCPHERSON/LATERAL LE -Combined with other wound No -Current Size (cm) - Length 5.6 -Current Size (cm) - Width 11 -Current Size (cm) - Depth 0.1 -Total Square Cm 61.6 -Date of Last Picture (Recall this 04/07/19 field) -Photo Taken Yes -Epithelialization Small 1-33% -Tunneling No -Undermining/Tunneling No -Circular Undermining No -Exudate Amt Medium -Exudate Type Serosanguineous -Wound Margin Distinct, Outline Attached -Granulation Amt Large (67-100%) -Granulation Quality Hyper- granulation, Pale,Red -Slough/Fibrin Yes -Necrosis Amt Small (1-33%) -Necrotic Tissue Type Adherent Slough -Texture (Char-wound Skin Appearance) Assessed, Scarring -Moisture (Char-wound Skin Appearance Assessed,Dry/ ) Scaly -Color (Char-wound Skin Appearance) Assessed -Temperature (Char-wound Skin No Abnormality Appearance) (Pt Warm) -Tenderness on Palpation (Char-wound No Skin Appearance) -Ulcer Cleansing Rinsed/ Irrigated with Saline -Foul Odor after Cleansing No -Anesthetic Used 4% Lidocaine Solution [Edema Assessment] -Lower Limb Edema Present Yes -Right Calf (cm) 46.5 -Right Ankle (cm) 29 -Left Calf (cm) 39 -Left Ankle (cm) 27 WC - Nurse 2 - General Ulcer CM Notes Start: 04/07/19 14:16 Freq: Status: Active Protocol: Activity Type Activity Date Activity User E-Sign Co-Sign Detail Recorded Client Recorded Date Recorded By Document 04/07/19 15:01 SERG [id number] 04/07/19 15:05 SERG 04/07/19 15:01 Wound Center Nurse 2 [Procedure/Treatment] #27- R POST LE -Time 15:02 -Correct Patient Yes -Correct Side, Site, Position Yes -Correct Procedure Yes -Procedure Performed Yes -Type of Procedure Debridement -Clinical Debridement Subcutaneous -Post Debridement Size (cm) - Length 2.4 -Post Debridement Size (cm) - Width 1.8 -Post Debridement Size (cm) - Depth 0.1 -Total Square Cm 4.32 -Wound/Ulcer Outcome Not Healed -Ulcer Cleansing Rinsed/ Irrigated with Saline -Foul Odor after Cleansing No -Bioengineered Tissue No -Bleeding Controlled with Pressure -Offloading No -Treatment Response Procedure Tolerated Well #26- L POST LE -Correct Patient No -Correct Side, Site, Position No -Correct Procedure No -Procedure Performed No -Post Debridement Size (cm) - Length 0 -Post Debridement Size (cm) - Width 0 -Post Debridement Size (cm) - Depth 0 -Total Square Cm 0 -Wound/Ulcer Outcome Healed- Epithelialized #25- R MCPHERSON/LATERAL LE -Time 15:03 -Correct Patient Yes -Correct Side, Site, Position Yes -Correct Procedure Yes -Procedure Performed Yes -Type of Procedure Debridement -Clinical Debridement Subcutaneous -Post Debridement Size (cm) - Length 11.5 -Post Debridement Size (cm) - Width 6.5 -Post Debridement Size (cm) - Depth 0.1 -Total Square Cm 74.75 -Wound/Ulcer Outcome Not Healed -Ulcer Cleansing Rinsed/ Irrigated with Saline -Foul Odor after Cleansing No -Bioengineered Tissue No -Bleeding Controlled with Pressure -Offloading No -Treatment Response Procedure Tolerated Well [See Physician Procedure note for Specifics] Pain Scale: 0-10 Numeric [Pain] -Is Patient Pain Free? Yes Musculoskeletal: No Tenderness to Palpation of Joints or Extremities Neurological: Neuro grossly intact Psych/Mental Status: Normal Affect, Appropriate Debridement Note Post-Debridement Measurements/Treatment WC - Nurse 2 - General Ulcer CM Notes Start: 04/07/19 14:16 Freq: Status: Active Protocol: Activity Type Activity Date Activity User E-Sign Co-Sign Detail Recorded Client Recorded Date Recorded By Document 04/07/19 15:01 SERG [id number] 04/07/19 15:05 SERG 04/07/19 15:01 Wound Center Nurse 2 #27- R POST LE -Time 15:02 -Correct Patient Yes -Correct Side, Site, Position Yes -Correct Procedure Yes -Procedure Performed Yes -Type of Procedure Debridement -Clinical Debridement Subcutaneous -Post Debridement Size (cm) - Length 2.4 -Post Debridement Size (cm) - Width 1.8 -Post Debridement Size (cm) - Depth 0.1 -Total Square Cm 4.32 -Wound/Ulcer Outcome Not Healed -Ulcer Cleansing Rinsed/ Irrigated with Saline -Foul Odor after Cleansing No -Bioengineered Tissue No -Bleeding Controlled with Pressure -Offloading No -Treatment Response Procedure Tolerated Well #26- L POST LE -Correct Patient No -Correct Side, Site, Position No -Correct Procedure No -Procedure Performed No -Post Debridement Size (cm) - Length 0 -Post Debridement Size (cm) - Width 0 -Post Debridement Size (cm) - Depth 0 -Total Square Cm 0 -Wound/Ulcer Outcome Healed- Epithelialized #25- R MCPHERSON/LATERAL LE -Time 15:03 -Correct Patient Yes -Correct Side, Site, Position Yes -Correct Procedure Yes -Procedure Performed Yes -Type of Procedure Debridement -Clinical Debridement Subcutaneous -Post Debridement Size (cm) - Length 11.5 -Post Debridement Size (cm) - Width 6.5 -Post Debridement Size (cm) - Depth 0.1 -Total Square Cm 74.75 -Wound/Ulcer Outcome Not Healed -Ulcer Cleansing Rinsed/ Irrigated with Saline -Foul Odor after Cleansing No -Bioengineered Tissue No -Bleeding Controlled with Pressure -Offloading No -Treatment Response Procedure Tolerated Well Pain Scale: 0-10 Numeric Is Patient Pain Free? Yes Wound debrided: anterior leg ulcer Laterality: Right Type of Debridement: Excisional debridement Anesthesia Used: 5% Lidocaine Gel Depth: Down to and including healthy tissue, in the subcutaneous layer Percentage of wound debrided: 100 Instrument Used: 5mm curette Tissue Removed: subcutaneous tissue and slough Severity: Fat Layer Exposed Amount of bleeding with debridement: Mild Bleeding Controlled with: Pressure Patient tolerated procedure well - Additional Wound Wound debrided: posterior leg ulcer Laterality: Right Type of Debridement: Excisional debridement Anesthesia Used: 5% Lidocaine Gel Depth: Down to and including healthy tissue, in the subcutaneous layer Percentage of wound debrided: 100 Instrument Used: 5mm curette Tissue Removed: Subcutaneous tissue and slough Severity: Fat Layer Exposed Bleeding Controlled with: Pressure Patient tolerated procedure: Patient tolerated procedure well Assessment/Plan Active Problems (Last Reviewed 03/05/19 @ 08:46 by Leilani Carey NP-C) Lymphedema (Chronic) Peripheral vascular disease (Chronic) Venous insufficiency of both lower extremities (Chronic) Type 2 diabetes mellitus (Chronic) Ulcer of right lower extremity with fat layer exposed (Chronic) Ulcer of left lower extremity with fat layer exposed (Chronic) Assessment: 1. Ulcer of right lower extremity with fat layer exposed. 2. Ulcer of left lower extremity with fat layer exposed. 3. Venous insufficiency of both lower extremities. 4. Type 2 diabetes mellitus. 5. Multiple sclerosis Plan: On 01/06/19 patient underwent surgery for 1. Surgical preparation right anterolateral leg with incision and drainage and evacuation and excisional debridement infected hematoma with overlying skin necrosis (85.5 cm2). 2. Surgical preparation right proximal posteromedial leg with incision and drainage and evacuation and excisional debridement infected hematom with overlying skin necrosis (22.5 cm2). 3. Surgical preparation left proximal posteromedial leg with incision and drainage and evacuation and excisional debridement infected hematoma with overlying skin necrosis (30 cm2). She had fallen a week prior at home. She has history of chronic bilateral leg edema with venous insufficiency as well as chronic bilateral leg wounds. Upon admission her Hgb was 7.8. She received PRBC. Because of the cellulitis, she was started on IV antibiotics. She completed Cleocin and Meropenem. Surgical wound culture to right anterior lateral ulcer positive for Klebsiella pneumoniae sp pneum. Cultures from right proximal posterior medial ulcer positive for Klebsiella pneumoniae sp pneum, Pseudomonas aeroginosa. Cultures from left proximal posterior medial ulcer pos itive for Klebsiella pneumoniae sp pneum. Wound care: stop VAC per patient request. Will do daily Aquacel Ag to the right lateral leg ulcer to the right posterior leg ulcer. The left medial leg ulcer is healed. Tubigrip topped with JASMINE wrap for compression. She may benefit from lymphadema pumps due to her significant amount of edema venous stasis history. She has a history of frequent falls. She is currently at the [facility] since this past hospitalization. She states she is going home tomorrow. She denies fevers. Encouraged increase protein intake. Follow up one weeks. Code Visit [id number]: [id number] Dari subq tissue 20 sq cm/< Add On Codes: 45680 Dari subq tissue add-on - x3
[2019-04-28 12:40] VITALS: BP 182/94; PULSE 65; RESP 118; TEMP 36.1; BMI 42.7
--- NOTE | 2019-04-28 15:15 | PCM.WC.PN ---
Type of Wound Date of Service: 04/28/19 Chief Complaint: Nonhealing hematoma ulcers right anterolateral leg and right proximal posteromedial leg. History of Wound: Surgery 01/06/19 - 1. Surgical preparation right anterolateral leg with incision and drainage and evacuation and excisional debridement infected hematoma with overlying skin necrosis (85.5 cm2). 2. Surgical preparation right proximal posteromedial leg with incision and drainage and evacuation and excisional debridement infected hematoma with overlying skin necrosis (22.5 cm2). 3. Surgical preparation left proximal posteromedial leg with incision and drainage and evacuation and excisional debridement infected hematoma with overlying skin necrosis (30 cm2). Wound care - Silver with Tubigrip for compression. Surgical wound culture to right anterior lateral ulcer positive for Klebsiella pneumoniae sp pneum. Cultures from right proximal posterior medial ulcer positive for Klebsiella pneumoniae sp pneum, Pseudomonas aeroginosa. Cultures from left proximal posterior medial ulcer positive for Klebsiella pneumoniae sp pneum. She was treated with IV antibiotics with Meropenem and has finished them. Prealbumin from 12/13/18 was 29.4. Encourage nutritional supplementation with protein to help the healing process. Today she denies fever. Her appetite is good. Progress of Wound: Right anterolateral leg ulcer and right proximal posteromedial leg ulcer have improved. The left proximal posteromedial leg ulcer remains healed. - Physical Exam Vital Signs Temp Pulse Resp BP 96.9 F L 65 118 H 182/94 H 04/28/19 12:40 04/28/19 12:40 04/28/19 12:40 04/28/19 12:40 Wound Measurements and Assessment WC - Nurse 1 - General Ulcer Measurement Start: 04/07/19 14:16 Freq: Status: Active Protocol: Activity Type Activity Date Activity User E-Sign Co-Sign Detail Recorded Client Recorded Date Recorded By Document 04/28/19 12:40 DV [id number] 04/28/19 12:52 DV 04/28/19 12:40 Wound Center Nurse 1 [Ulcer Assessment] #27- R POST LE -Combined with other wound No -Current Size (cm) - Length 1.9 -Current Size (cm) - Width 1.6 -Current Size (cm) - Depth 0.1 -Total Square Cm 3.04 -Photo Taken No -Epithelialization None Present -Tunneling No -Undermining/Tunneling No -Circular Undermining No -Classification - Thickness Full Thickness without Exposed Support Structure -Exudate Amt Medium -Exudate Type Serosanguineous -Wound Margin Flat & Intact -Granulation Amt Small (1-33%) -Granulation Quality Red -Slough/Fibrin Yes -Necrosis Amt Medium (34-66%) -Necrotic Tissue Type Adherent Slough -Texture (Char-wound Skin Appearance) Assessed, Scarring -Moisture (Char-wound Skin Appearance Assessed, ) Weeping -Color (Char-wound Skin Appearance) No Abnormality, Assessed -Temperature (Char-wound Skin No Abnormality Appearance) (Pt Warm) -Tenderness on Palpation (Char-wound Yes Skin Appearance) -Foul Odor after Cleansing No -Anesthetic Used 4% Lidocaine Solution #25- R MCPHERSON/LATERAL LE -Combined with other wound No -Current Size (cm) - Length 4.8 -Current Size (cm) - Width 9.0 -Current Size (cm) - Depth 0.1 -Total Square Cm 43.20 -Photo Taken No -Epithelialization Small 1-33% -Tunneling No -Undermining/Tunneling No -Circular Undermining No -Classification - Thickness Full Thickness without Exposed Support Structure -Exudate Amt Medium -Exudate Type Serosanguineous -Wound Margin Flat & Intact -Granulation Amt Large (67-100%) -Granulation Quality Red -Slough/Fibrin Yes -Necrosis Amt Large (67-100%) -Necrotic Tissue Type Adherent Slough -Structure Exposed None/Limited to Skin Breakdown -Texture (Char-wound Skin Appearance) Assessed, Localized Edema ,Scarring -Moisture (Char-wound Skin Appearance Assessed, ) Weeping -Color (Char-wound Skin Appearance) Assessed, Erythema -Temperature (Char-wound Skin No Abnormality Appearance) (Pt Warm) -Tenderness on Palpation (Char-wound Yes Skin Appearance) -Foul Odor after Cleansing No -Anesthetic Used 4% Lidocaine Solution [Edema Assessment] -Lower Limb Edema Present Yes WC - Nurse 2 - General Ulcer CM Notes Start: 04/07/19 14:16 Freq: Status: Active Protocol: Activity Type Activity Date Activity User E-Sign Co-Sign Detail Recorded Client Recorded Date Recorded By Document 04/28/19 13:28 SERG [id number] 04/28/19 13:31 SERG 04/28/19 13:28 Wound Center Nurse 2 [Procedure/Treatment] #27- R POST LE -Time 13:28 -Correct Patient Yes -Correct Side, Site, Position Yes -Correct Procedure Yes -Procedure Performed Yes -Type of Procedure Debridement -Clinical Debridement Subcutaneous -Post Debridement Size (cm) - Length 2 -Post Debridement Size (cm) - Width 1.6 -Post Debridement Size (cm) - Depth 0.1 -Total Square Cm 3.2 -Wound/Ulcer Outcome Not Healed -Ulcer Cleansing Rinsed/ Irrigated with Saline -Foul Odor after Cleansing No -Bioengineered Tissue No -Bleeding Controlled with Pressure -Offloading No -Treatment Response Procedure Tolerated Well #25- R MCPHERSON/LATERAL LE -Time 13:28 -Correct Patient Yes -Correct Side, Site, Position Yes -Correct Procedure Yes -Procedure Performed Yes -Type of Procedure Debridement -Clinical Debridement Subcutaneous -Post Debridement Size (cm) - Length 4.8 -Post Debridement Size (cm) - Width 9.1 -Post Debridement Size (cm) - Depth 0.1 -Total Square Cm 43.68 -Wound/Ulcer Outcome Not Healed -Ulcer Cleansing Rinsed/ Irrigated with Saline -Foul Odor after Cleansing No -Bioengineered Tissue No -Bleeding Controlled with Pressure -Offloading No -Treatment Response Procedure Tolerated Well [See Physician Procedure note for Specifics] Pain Scale: 0-10 Numeric [Pain] -Is Patient Pain Free? Yes Debridement Note Post-Debridement Measurements/Treatment WC - Nurse 2 - General Ulcer CM Notes Start: 04/07/19 14:16 Freq: Status: Active Protocol: Activity Type Activity Date Activity User E-Sign Co-Sign Detail Recorded Client Recorded Date Recorded By Document 04/07/19 15:01 [id number] 04/07/19 15:05 Document 04/28/19 13:28 [id number] 04/28/19 13:31 04/07/19 04/28/19 15:01 13:28 Wound Center Nurse 2 #27- R POST LE -Time 15:02 13:28 -Correct Patient Yes Yes -Correct Side, Site, Position Yes Yes -Correct Procedure Yes Yes -Procedure Performed Yes Yes -Type of Procedure Debridement Debridement -Clinical Debridement Subcutaneous Subcutaneous -Post Debridement Size (cm) - Length 2.4 2 -Post Debridement Size (cm) - Width 1.8 1.6 -Post Debridement Size (cm) - Depth 0.1 0.1 -Total Square Cm 4.32 3.2 -Wound/Ulcer Outcome Not Healed Not Healed -Ulcer Cleansing Rinsed/ Rinsed/ Irrigated with Irrigated with Saline Saline -Foul Odor after Cleansing No No -Bioengineered Tissue No No -Bleeding Controlled with Pressure Pressure -Offloading No No -Treatment Response Procedure Procedure Tolerated Well Tolerated Well #26- L POST LE -Correct Patient No -Correct Side, Site, Position No -Correct Procedure No -Procedure Performed No -Post Debridement Size (cm) - Length 0 -Post Debridement Size (cm) - Width 0 -Post Debridement Size (cm) - Depth 0 -Total Square Cm 0 -Wound/Ulcer Outcome Healed- Epithelialized #25- R MCPHERSON/LATERAL LE -Time 15:03 13:28 -Correct Patient Yes Yes -Correct Side, Site, Position Yes Yes -Correct Procedure Yes Yes -Procedure Performed Yes Yes -Type of Procedure Debridement Debridement -Clinical Debridement Subcutaneous Subcutaneous -Post Debridement Size (cm) - Length 11.5 4.8 -Post Debridement Size (cm) - Width 6.5 9.1 -Post Debridement Size (cm) - Depth 0.1 0.1 -Total Square Cm 74.75 43.68 -Wound/Ulcer Outcome Not Healed Not Healed -Ulcer Cleansing Rinsed/ Rinsed/ Irrigated with Irrigated with Saline Saline -Foul Odor after Cleansing No No -Bioengineered Tissue No No -Bleeding Controlled with Pressure Pressure -Offloading No No -Treatment Response Procedure Procedure Tolerated Well Tolerated Well Pain Scale: 0-10 Numeric Is Patient Pain Free? Yes Yes Wound debrided: #25 Right anterolateral leg. Laterality: Right Wound Grade/Stage: 2. Type of Debridement: Excisional debridement Anesthesia Used: 4% Lidocaine Solution Depth: Down to and including healthy tissue, in the subcutaneous layer Percentage of wound debrided: 100 Instrument Used: 5mm curette Tissue Removed: subcutaneous tissue. Severity: Fat Layer Exposed Amount of bleeding with debridement: Mild Bleeding Controlled with: Pressure Patient tolerated procedure well - Additional Wound Wound debrided: #27 Right proximal posteromedial leg. Laterality: Right Wound Grade/Stage: 2. Type of Debridement: Excisional debridement Anesthesia Used: 4% Lidocaine Solution Depth: Down to and including healthy tissue, in the subcutaneous layer Percentage of wound debrided: 100 Instrument Used: 5mm curette Tissue Removed: subcutaneous tissue. Severity: Fat Layer Exposed Amount of bleeding with debridement: Mild Bleeding Controlled with: Pressure Patient tolerated procedure: Patient tolerated procedure well Assessment/Plan Active Problems (Last Reviewed 03/05/19 @ 08:46 by Leilani Carey, JIMY-C) Lymphedema (Chronic) Peripheral vascular disease (Chronic) Venous insufficiency of both lower extremities (Chronic) Type 2 diabetes mellitus (Chronic) Ulcer of right lower extremity with fat layer exposed (Chronic) Ulcer of left lower extremity with fat layer exposed (Chronic) Assessment: 1. Nonhealing hematoma ulcers right anterolateral leg and right proximal posteromedial leg. 2. Hematoma ulcer left proximal posteromedial leg remains healed. 3. Late effect hematoma right leg and hematoma left leg. 4. Venous insufficiency bilateral lower extremities. 5. Lymphedema bilateral lower extremities. 6. Type 2 diabetes mellitus. 7. custodial use of anticoagulation. 8. Late effect of falls. 9. Former smoker. Plan: Continue Silver dressing changes daily to the right leg hematoma ulcers followed by Tubigrip for compression. Prealbumin from 12/13/18 was 29.4. Encourage nutritional supplementation with protein to help the healing process. She has a history of venous insufficiency which has led to some lymphedema. She was instructed to elevate her legs when sitting. She would also benefit from a hospital bed at home which would allow her to keep her legs elevated when sleeping. She may benefit from lymphadema pumps due to her significant amount of edema venous stasis history. Followup 2 weeks. [id number]: [id number] Dari subq tissue 20 sq cm/< - ICD-10 - L97.912, I73.2, I89.0, S80.11xS, E11.9, Z79.01, W19.xxxS, Z87.891 Add On Codes: 01027 Dari subq tissue add-on - X2 ICD-10 - L97.912, I73.2, I89.0, S80.11xS, E11.9, Z79.01, W19.xxxS, Z87.891
== END 2019-05-06 23:59 ==
LOC: WC 13:00
PROVIDERS: Family Provider Family Medicine Geriatric Medicine; Referring Provider Podiatrist; Visit Provider Surgery
DX: E11.622 Type 2 diabetes mellitus with other skin ulcer (principal); L97.812 Non-pressure chronic ulcer of other part of right lower leg with fat layer exposed; L97.912 Non-pressure chronic ulcer of unspecified part of right lower leg with fat layer exposed; E11.52 Type 2 diabetes mellitus with diabetic peripheral angiopathy with gangrene; I73.9 Peripheral vascular disease, unspecified; G35 Multiple sclerosis; I87.2 Venous insufficiency (chronic) (peripheral); I89.0 Lymphedema, not elsewhere classified; R60.0 Localized edema; R29.6 Repeated falls; Z79.01 Long term (current) use of anticoagulants; Z79.899 Other long term (current) drug therapy; Z87.891 Personal history of nicotine dependence
CPT/HCPCS: 11042; 11045

== ENCOUNTER → 2019-05-08 | Outpatient (CLI) | payer MEDICARE, SELFPAY ==
[2019-04-28 12:40] VITALS: BMI 42.7
[2019-05-08 16:20] LABS: Absolute Lymphocyte Count 0.83 X10^3/uL (0.83-4.51); Absolute Neutrophil Count 10.9 X10^3/uL (2.0-7.7); Basophil# 0.03 X10^3/uL; Basophil% 0.2 % (0-1); Eosinophil# 0.29 X10^3/uL; Eosinophils% 2.3 % (0-5); Lymphocyte # 0.83 X10^3/ul (4.0); Lymphocyte % 6.4 % (19-41); Mean Corp Hgb Conc 29.8 g/dL (32-36); Mean Corpuscular Volume 97.3 fL (81-99); Mean Platelet Vol. 10.3 fl (6.2-12.0); Monocyte# 0.73 X10^3/uL; Monocyte% 5.7 % (0-10); NRBC Flagged by Analyzer 0 % (0-5); Neutrophil # 10.93 X10^3/uL (2.7-7.7); Neutrophil % 84.9 % (47-70); Platelet Count 215 K/mm3 (150-450); RBC Distribution Width CV 14.8 % (11.6-14.6); RBC Distribution Width SD 52.7 fl (35.1-43.9); Red Blood Count 4.83 M/mm3 (4.2-5.4); White Blood Count 12.9 K/mm3 (4.4-11.0)
[2019-05-08 17:03] LABS: Anion Gap 7 (5-15); BUN 35 mg/dL (7-18); BUN/Creat Ratio 26.9 RATIO (10-20); Calcium,Total 8.8 mg/dL (8.5-10.1); Chloride 107 mmol/L (98-107); EST Glomerular Filtration Rate 42 mL/min (>60); Est Glom Filt Rate - Afr Amer 51 mL/min (>60); Glucose 137 mg/dL (74-106); Potassium 4.5 mmol/L (3.5-5.1); Sodium Level 141 mmol/L (136-145)
[2019-05-08 19:35] LABS: M R Staph aureus DNA By PCR POSITIVE (Negative); Probe Check PASS; Staph aureus DNA By PCR POSITIVE (Negative)
== END | disposition home or self-care (01) ==
LOC: POLAB3 13:46
PROVIDERS: Visit Provider Family Medicine Geriatric Medicine
DX: N39.0 Urinary tract infection, site not specified (principal); B95.62 Methicillin resistant Staphylococcus aureus infection as the cause of diseases classified elsewhere; M79.609 Pain in unspecified limb
CPT/HCPCS: 36415; 80048; 85025; 87070; 87077; 87086; 87088; 87186; 87205; 87640

== ENCOUNTER 2019-05-11 18:34 | Emergency (ER) | payer MEDICARE, SELFPAY ==
[2019-05-11] VITALS (9 sets, daily range): BP systolic 103–203; BP diastolic 42–130; PULSE 59–62; RESP 14–22; TEMP 36.8; O2SAT 95–100; BMI 38.5
--- NOTE | 2019-05-11 18:51 | CT_ITS ---
STUDY: CT BRAIN WITHOUT CONTRAST REASON FOR EXAM: Female, 74 years old. PT FELL AT HOME. NO LOC. DENIES HITTING HEAD. DEMENTIA. DENIES STROKES/SEIZURES/SURGERIES RADIATION DOSAGE (If Supplied By Facility): CTDIvol = ( 44.99 ) mGy, DLP = ( 762.36 ) mGycm TECHNIQUE: Transaxial CT imaging of the brain was performed without administration of intravenous contrast material. Individualized dose optimization techniques were used for this CT. COMPARISON: 02/14/2019 FINDINGS: Normal soft tissue structures. Normal calvarium. Bilateral lens replacements. Normal size ventricles and extra-axial spaces for the patient''s age. There are areas of decreased attenuation within the white matter tracts of the supratentorial brain, consistent with microvascular disease changes. Age-related changes of the basal ganglia. Normal brainstem. Normal cerebellum. There is no intracranial hemorrhage. There are no findings of an acute ischemic infarction. Normal visualized paranasal sinuses. CT/Brain/Head without Contrast IMPRESSION: No fracture or intracranial hemorrhage. Electronically Signed: Ney Ontiveros MD at 20:00 EDT Tel , Service support ,
[2019-05-11] MEDS: Morphine 4 MG/ML Syringe IV (19:07)
--- NOTE | 2019-05-11 19:18 | ED.DCSUM_ITS ---
- ER Visit Summary Date of Service: 05/11/19 Chief Complaint: Fall History of Present Illness: The patient is a 74 F who presents after a fall that occurred today. Patient states she tripped over her walker and fell onto her left side. Patient denies any head injury or loss of consciousness. Patient states her pain is sharp and is worse with any movement. Patient denies any paresthesias or weakness. Patient denies any neck pain or back pain. Patient states she has a history of MS and trigeminal neuralgia. Patient is also on Xarelto. Patient also complains of an occipital headache. Physical Examination: Vital signs are stable except for an elevated blood pressure of 203/64. Patient is afebrile. Patient is in no acute distress. Cranial nerves II through XII are intact. Strength is 5/5 bilaterally upper and lower extremities. There are no sensory deficits noted. Sensation was intact to light touch in the radial, median, ulnar, and axillary areas bilaterally. Radial pulses are equal bilaterally. Musculoskeletal exam reveals tenderness and a deformity over the left shoulder. Range of motion was limited in all motions of the left shoulder secondary to pain. Heart was regular rate and rhythm. Lungs are clear and equal bilaterally. Abdomen is soft and nontender. There is no calf tenderness or edema. Test Results: CT scan of the brain was obtained. There is no acute intracranial abnormality. X-rays of the left shoulder were obtained. There is a anterior- inferior dislocation of the left shoulder. These were interpreted by the radiologist and reviewed by myself. Emergency Department Course and Treatment: Patient was given a dose of morphine here. Patient was informed of the planned procedure of conscious sedation and reduction of her shoulder. Patient was given the opportunity ask questions and had none. Patient agrees with the plan of conscious sedation and reduction of her shoulder. Patient was given a total of 70 mg of propofol. The shoulder was reduced using traction countertraction. Patient tolerated procedure well. Sling and swath was placed. Patient had no hypoxic episodes during the sedation. Patient was awake and alert after the procedure. Patient states her pain has improved greatly. Patient's blood pressure improved after this. Repeat x-rays were obtained. There is no acute fracture or dislocation noted. These were interpreted by the radiologist and myself. Patient was instructed to maintain her sling and swath. Patient was instructed to follow-up with her primary care physician in 5 to 7 days. Patient understood and was agreeable wi th the plan. All questions were answered. Disposition: Discharge home Impression: Left shoulder dislocation This note was generated with bizsol dictation software. It may contain incorrect words, spelling, and punctuation that were not noted in review of the chart prior to signing ED Disposition - Plan for ED Patient: Disposition: Home or Assisted Living Diagnosis: Dislocation of left shoulder joint Instructions: ED Dislocation Shoulder Redu, ED Sling and Swathe Referrals: Octaviano Franco Chi, MD [Primary Care Provider] - 5-7 Days
--- NOTE | 2019-05-11 19:24 | RAD_ITS ---
STUDY: X-RAY - LEFT SHOULDER REASON FOR EXAM: Female, 74 years old. FALL, PAIN, DEFORMITY TECHNIQUE: 2 view(s) of the shoulder. COMPARISON: 10/05/2017 FINDINGS: Anteroinferior glenohumeral dislocation. Normal acromioclavicular joint. Normal acromion. Normal humeral head and visualized proximal humerus. The soft tissue structures are unremarkable. Normal visualized pulmonary apex. Median sternotomy wires. CABG clips. RAD/Shoulder min 2 Views IMPRESSION: Anteroinferior glenohumeral dislocation. Electronically Signed: Ney Ontiveros MD at 19:55 EDT Tel , Service support ,
--- NOTE | 2019-05-11 19:53 | ED.RN ---
spoke with pt's daughter on the phone to update on pt's condition.
[2019-05-11] MEDS: Propofol 200 MG/20 ML Vial IV BOLUS (20:18)
--- NOTE | 2019-05-11 20:37 | RAD_ITS ---
STUDY: X-RAY - LEFT SHOULDER REASON FOR EXAM: Female, 74 years old. POST REDUCTION TECHNIQUE: 1 view(s) of the shoulder. COMPARISON: 7:27 PM FINDINGS: Successful glenohumeral reduction. Normal acromioclavicular joint. Normal acromion. Normal humeral head and visualized proximal humerus. The soft tissue structures are unremarkable. Normal visualized pulmonary apex. CABG clips. RAD/Shoulder One View IMPRESSION: Successful glenohumeral reduction. Electronically Signed: Ney Ontiveros MD at 21:09 EDT Tel , Service support ,
== END 2019-05-11 21:40 | disposition home or self-care (01) ==
PROVIDERS: Emergency Provider Emergency Medicine; PCP Family Medicine Geriatric Medicine
DX: S43.005A Unspecified dislocation of left shoulder joint, initial encounter (principal); G50.0 Trigeminal neuralgia; G35 Multiple sclerosis; E66.9 Obesity, unspecified; F03.90 Unspecified dementia, unspecified severity, without behavioral disturbance, psychotic disturbance, mood disturbance, and anxiety; I11.0 Hypertensive heart disease with heart failure; I50.9 Heart failure, unspecified; K21.9 Gastro-esophageal reflux disease without esophagitis; I48.0 Paroxysmal atrial fibrillation; Z79.02 Long term (current) use of antithrombotics/antiplatelets; W01.0XXA Fall on same level from slipping, tripping and stumbling without subsequent striking against object, initial encounter; Y93.89 Activity, other specified; Y92.009 Unspecified place in unspecified non-institutional (private) residence as the place of occurrence of the external cause; Y99.8 Other external cause status
CPT/HCPCS: 23650; 70450; 73020; 73030; 96374; 96375; 99285; A4216

== ENCOUNTER 2019-05-12 13:36 | Outpatient (RCR) | payer MEDICARE, SELFPAY ==
[2019-05-07 00:11] VITALS: BP 182/94; PULSE 65; RESP 118; TEMP 36.1
[2019-05-11 18:34] VITALS: BMI 38.5
--- NOTE | 2019-05-12 13:37 | PN.PCM_ITS ---
(1) Ulcer of right lower extremity with fat layer exposed Status: Chronic Current Visit: Yes Code(s): L97.912 - Non-pressure chronic ulcer of unspecified part of right lower leg with fat layer exposed (2) Debility Status: Acute Current Visit: Yes Code(s): R53.81 - Other malaise (3) Lymphedema Status: Chronic Current Visit: Yes Code(s): I89.0 - Lymphedema, not elsewhere classified (4) Type 2 diabetes mellitus Status: Chronic Current Visit: Yes Qualifiers: Code(s): E11.9 - Type 2 diabetes mellitus without complications (5) PVD (peripheral vascular disease) Status: Chronic Current Visit: Yes Code(s): I73.9 - Peripheral vascular disease, unspecified Type of Wound Date of Service: 05/12/19 Chief Complaint: Nonhealing hematoma ulcers right anterolateral leg and right proximal posteromedial leg. History of Wound: Surgery 01/06/19 - 1. Surgical preparation right anterolateral leg with incision and drainage and evacuation and excisional debridement infected hematoma with overlying skin necrosis (85.5 cm2). 2. Surgical preparation right proximal posteromedial leg with incision and drainage and evacuation and excisional debridement infected hematoma with overlying skin necrosis (22.5 cm2). 3. Surgical preparation left proximal posteromedial leg with incision and drainage and evacuation and excisional debridement infected hematoma with overlying skin necrosis (30 cm2). Wound care - Silver with Tubig rip for compression. These will be changed 3 time per week by home health. Patient fell yesterday and dislocated her left shoulder. She is now has her left upper extremity in an immobilizer. Surgical wound culture to right anterior lateral ulcer positive for Klebsiella pneumoniae sp pneum. Cultures from right proximal posterior medial ulcer positive for Klebsiella pneumoniae sp pneum, Pseudomonas aeroginosa. Cultures from left proximal posterior medial ulcer positive for Klebsiella pneumoniae sp pneum. She was treated with IV antibiotics with Meropenem and has finished them. Prealbumin from 12/13/18 was 29.4. Encourage nutritional supplementation with protein to help the healing process. Today she denies fever. Her appetite is good. Progress of Wound: Right anterolateral leg ulcer and right proximal posteromedial leg ulcer have improved. The left proximal posteromedial leg ulcer remains healed. - Physical Exam Vital Signs Temp Pulse Resp BP 98.7 F 63 20 H 148/60 H 05/12/19 13:47 05/12/19 13:47 05/12/19 13:47 05/12/19 13:47 General: Alert, Oriented x3 HEENT: Atraumatic Oral: Moist Mucosa Lungs: Normal air movement Cardiovascular: Regular rate Extremities: Edema - +3 edema, Tenderness - left arm/shoulder in an immobilizer due to her fall yesterday when she dislocated her shoulder Skin: Ulcer/ Wound - Right anterior lateral leg and right posterior leg ulcers. Wound Measurements and Assessment WC - Nurse 1 - General Ulcer Measurement Start: 05/12/19 13:47 Freq: Status: Active Protocol: Activity Type Activity Date Activity User E-Sign Co-Sign Detail Recorded Client Recorded Date Recorded By Document 05/12/19 13:47 DL [id number] 05/12/19 14:04 DL 05/12/19 13:47 Wound Center Nurse 1 [Ulcer Assessment] #27- R POST LE -Current Size (cm) - Length 1.1 -Current Size (cm) - Width 0.5 -Current Size (cm) - Depth 0.1 -Total Square Cm 0.55 -Photo Taken Yes -Exudate Amt Small -Exudate Type Serosanguineous -Wound Margin Distinct, Outline Attached -Granulation Amt Large (67-100%) -Granulation Quality Red -Necrosis Amt None Present (0 %) -Structure Exposed N/A -Texture (Char-wound Skin Appearance) Scarring -Moisture (Char-wound Skin Appearance Dry/Scaly ) -Color (Char-wound Skin Appearance) Erythema -Temperature (Char-wound Skin No Abnormality Appearance) (Pt Warm) -Tenderness on Palpation (Char-wound No Skin Appearance) -Ulcer Cleansing Rinsed/ Irrigated with Saline -Foul Odor after Cleansing No -Anesthetic Used 4% Lidocaine Solution #25- R MCPHERSON/LATERAL LE -Current Size (cm) - Length 4.5 -Current Size (cm) - Width 7.4 -Current Size (cm) - Depth 0.1 -Total Square Cm 33.30 [Edema Assessment] -Right Calf (cm) 31.8 -Right Ankle (cm) 26.5 WC - Nurse 2 - General Ulcer CM Notes Start: 05/12/19 13:47 Freq: Status: Active Protocol: Activity Type Activity Date Activity User E-Sign Co-Sign Detail Recorded Client Recorded Date Recorded By Document 05/12/19 14:44 [email or web address] [id number] 05/12/19 14:46 05/12/19 14:44 Wound Center Nurse 2 [Procedure/Treatment] #27- R POST LE -Time 14:45 -Correct Patient Yes -Correct Side, Site, Position Yes -Correct Procedure Yes -Procedure Performed Yes -Type of Procedure Debridement -Clinical Debridement Subcutaneous -Post Debridement Size (cm) - Length 1.2 -Post Debridement Size (cm) - Width 1 -Post Debridement Size (cm) - Depth 0.1 -Total Square Cm 1.2 -Wound/Ulcer Outcome Not Healed -Ulcer Cleansing Rinsed/ Irrigated with Saline -Foul Odor after Cleansing No -Bioengineered Tissue No -Bleeding Controlled with Pressure -Offloading No -Treatment Response Procedure Tolerated Well #25- R MCPHERSON/LATERAL LE -Time 14:45 -Correct Patient Yes -Correct Side, Site, Position Yes -Correct Procedure Yes -Procedure Performed Yes -Type of Procedure Debridement -Clinical Debridement Subcutaneous -Post Debridement Size (cm) - Length 4.1 -Post Debridement Size (cm) - Width 9.5 -Post Debridement Size (cm) - Depth 0.2 -Total Square Cm 38.95 -Wound/Ulcer Outcome Not Healed -Ulcer Cleansing Rinsed/ Irrigated with Saline -Foul Odor after Cleansing No -Bioengineered Tissue No -Bleeding Controlled with Pressure -Offloading No -Treatment Response Procedure Tolerated Well [See Physician Procedure note for Specifics] Pain Scale: 0-10 Numeric [Pain] -Is Patient Pain Free? Yes Musculoskeletal: Tenderness Neurological: Neuro grossly intact Psych/Mental Status: Normal Affect, Appropriate Debridement Note Post-Debridement Measurements/Treatment WC - Nurse 2 - General Ulcer CM Notes Start: 05/12/19 13:47 Freq: Status: Active Protocol: Activity Type Activity Date Activity User E-Sign Co-Sign Detail Recorded Client Recorded Date Recorded By Document 05/12/19 14:44 [id number] 05/12/19 14:46 05/12/19 14:44 Wound Center Nurse 2 #27- R POST LE -Time 14:45 -Correct Patient Yes -Correct Side, Site, Position Yes -Correct Procedure Yes -Procedure Performed Yes -Type of Procedure Debridement -Clinical Debridement Subcutaneous -Post Debridement Size (cm) - Length 1.2 -Post Debridement Size (cm) - Width 1 -Post Debridement Size (cm) - Depth 0.1 -Total Square Cm 1.2 -Wound/Ulcer Outcome Not Healed -Ulcer Cleansing Rinsed/ Irrigated with Saline -Foul Odor after Cleansing No -Bioengineered Tissue No -Bleeding Controlled with Pressure -Offloading No -Treatment Response Procedure Tolerated Well #25- R MCPHERSON/LATERAL LE -Time 14:45 -Correct Patient Yes -Correct Side, Site, Position Yes -Correct Procedure Yes -Procedure Performed Yes -Type of Procedure Debridement -Clinical Debridement Subcutaneous -Post Debridement Size (cm) - Length 4.1 -Post Debridement Size (cm) - Width 9.5 -Post Debridement Size (cm) - Depth 0.2 -Total Square Cm 38.95 -Wound/Ulcer Outcome Not Healed -Ulcer Cleansing Rinsed/ Irrigated with Saline -Foul Odor after Cleansing No -Bioengineered Tissue No -Bleeding Controlled with Pressure -Offloading No -Treatment Response Procedure Tolerated Well Pain Scale: 0-10 Numeric Is Patient Pain Free? Yes Wound debrided: Anteriolateral leg ulcer Laterality: Right Type of Debridement: Excisional debridement Anesthesia Used: 4% Lidocaine Solution, 5% Lidocaine Gel Depth: Down to and including healthy tissue, in the subcutaneous layer Percentage of wound debrided: 100 Instrument Used: 5mm curette Tissue Removed: Subcutaneous tissue and slough Severity: Fat Layer Exposed Amount of bleeding with debridement: Mild Bleeding Controlled with: Pressure Patient tolerated procedure well - Additional Wound Wound debrided: posterior leg ulcer Laterality: Right Type of Debridement: Excisional debridement Anesthesia Used: 5% Lidocaine Gel Depth: Down to and including healthy tissue, in the subcutaneous layer Percentage of wound debrided: 100 Instrument Used: 3mm curette Tissue Removed: Subcutaneous tissue and slough Severity: Fat Layer Exposed Amount of bleeding with debridement: Mild Bleeding Controlled with: Pressure Patient tolerated procedure: Patient tolerated procedure well Assessment/Plan Active Problems (Last Reviewed 05/13/19 @ 14:[address] Douglas Bowman, DO) General weakness (Acute) Debility (Acute) Dislocation of left shoulder joint (Acute) recent 05/11/19 Lymphedema (Chronic) Type 2 diabetes mellitus (Chronic) Ulcer of right lower extremity with fat layer exposed (Chronic) PVD (peripheral vascular disease) (Chronic) Assessment: 1. Nonhealing hematoma ulcers right anterolateral leg and right proximal posteromedial leg. 2. Hematoma ulcer left proximal posteromedial leg remains healed. 3. Late effect hematoma right leg and hematoma left leg. 4. Venous insufficiency bilateral lower extremities. 5. Lymphedema bilateral lower extremities. 6. Type 2 diabetes mellitus. 7. 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 8. Late effect of falls. 9. Former smoker. Plan: Continue Silver dressing changes daily to the right leg hematoma ulcers followed by Tubigrip for compression. Home health is coming in 3 days per week to change the dressing. Dr. Franco culture her wound recently and it was positive for Proteus mirabilis and MRSA. She could not remember the antibiotics that she was placed on, so I called the pharmacy and they stated that she was on Clindamycin and Doxycycline. Patient fell yesterday and dislocated her left shoulder. I had a long conversation about her being in a place where she was safe and not falling. She states that she cannot afford assisted living. Prealbumin from 12/13/18 was 29.4. Encourage nutritional supplementation with protein to help the healing process. She has a history of venous insufficiency which has led to some lymphedema. She was instructed to elevate her legs when sitting. She would also benefit from a hospital bed at home which would allow her to keep her legs elevated when sleeping. She may benefit from lymphadema pumps due to her significant amount of edema venous stasis history. Followup 2 weeks. [id number]: [id number] Dari subq tissue 20 sq cm/< Add On Codes: 56963 Dari subq tissue add-on
[2019-05-12 13:47] VITALS: BP 148/60; PULSE 63; RESP 20; TEMP 37.1; BMI 38.5
== END 2019-06-05 23:59 ==
LOC: WC 13:36
PROVIDERS: Family Provider Family Medicine Geriatric Medicine; PCP Family Medicine Geriatric Medicine; Referring Provider Podiatrist; Visit Provider Surgery
DX: E11.622 Type 2 diabetes mellitus with other skin ulcer (principal); L97.912 Non-pressure chronic ulcer of unspecified part of right lower leg with fat layer exposed; L97.812 Non-pressure chronic ulcer of other part of right lower leg with fat layer exposed; B96.1 Klebsiella pneumoniae [K. pneumoniae] as the cause of diseases classified elsewhere; B96.5 Pseudomonas (aeruginosa) (mallei) (pseudomallei) as the cause of diseases classified elsewhere; E11.52 Type 2 diabetes mellitus with diabetic peripheral angiopathy with gangrene; I73.9 Peripheral vascular disease, unspecified; G35 Multiple sclerosis; I87.2 Venous insufficiency (chronic) (peripheral); I89.0 Lymphedema, not elsewhere classified; R60.0 Localized edema; S43.005D Unspecified dislocation of left shoulder joint, subsequent encounter; W19.XXXD Unspecified fall, subsequent encounter; R29.6 Repeated falls; Z79.01 Long term (current) use of anticoagulants; Z79.899 Other long term (current) drug therapy; Z87.891 Personal history of nicotine dependence
CPT/HCPCS: 11042; 11045

== ENCOUNTER 2019-05-13 12:05 | Observation (INO) | payer MEDICARE, SELFPAY ==
[2019-05-12 13:47] VITALS: BMI 38.5
[2019-05-13] VITALS (9 sets, daily range): BP systolic 119–152; BP diastolic 39–75; PULSE 60–65; RESP 14–18; TEMP 36.6–37; O2SAT 93–98; BMI 38.5; BMI 37.8
--- NOTE | 2019-05-13 12:30 | EKG12_ITS ---
Test Reason : SHOULDER PAIN Blood Pressure : / mmHG Vent. Rate : 056 BPM Atrial Rate : 056 BPM P-R Int : 162 ms QRS Dur : 092 ms QT Int : 486 ms P-R-T Axes : 033 010 134 degrees QTc Int : 468 ms Sinus bradycardia Left ventricular hypertrophy Nonspecific ST and T wave abnormality Abnormal ECG Confirmed by REBECCA HATCH, CHERYL ([id number]), tape editor SHAHNAZ MARINA ([id number]) on 05/14/2019 8:50:57 AM Referred By: JOSE JUAN Confirmed By:CHERYL FERNANDEZ MD
--- NOTE | 2019-05-13 12:37 | ED.VISSUMM ---
- ER Visit Summary Date of Service: 05/13/19 Chief Complaint: Weakness History of Present Illness: The patient is a 74 F who presents with weakness that is been getting worse over the past 3 days. Patient was seen here 2 days ago after a fall with a shoulder dislocation. Patient states she has been getting progressively weaker since that time. Patient states her weakness is worse whenever she tries to ambulate. Patient states she has to stop every few feet while she ambulates with her walker. Patient states she had been living in a fpc but was discharged because her allotted days had . Patient denies any fevers or chills. Patient denies any chest pain or shortness of breath. Patient denies any cough. Patient denies any nausea or vomiting. Patient also has a chronic wound to her right lower leg that she said is been there for over a year. Patient states she has been having difficulty caring for herself at home. Patient states she lives with her sister who was also recently discharged from extended-care facility. Physical Examination: Vital signs are stable. Patient is afebrile. Patient is in no acute distress. Oral mucosa is pink and moist. Neck is supple. Trachea is midline. There is no JVD. Heart was regular rate and rhythm. Lungs are clear and equal bilaterally. Abdomen is soft. Bowel sounds are normal. There is no tenderness. Cranial nerves II through XII are intact. There are no focal motor or sensory deficits noted. Skin is warm and dry. There is a superficial ulceration over the anterior lateral aspect of the right lower leg. There is no active discharge or drainage. There is no erythema or warmth. Extremities are intact. There is some mild tenderness over the left shoulder but there is no deformity. Test Results: EKG showed a sinus bradycardia with a rate of 56. There are nonspecific ST-T wave changes and left ventricular hypertrophy. It was unchanged compared to previous EKG dated 02/15/2019. Portable chest x-ray was obtained. There is no acute cardiopulmonary process. CBC and comprehensive metabolic profile were obtained and were essentially within normal limits. Troponin was normal. Emergency Department Course and Treatment: Case was discussed with sr. social media & mobile manager who stated that the patient would need to be precertified for placement in an extended care facility. This would require admission to the hospital. Case was discussed with the hospitalist. He will admit the patient for observation. Patient understands and is agreeable with the plan. All questions were answered. Disposition: Admit for observation Impression: 1. Generalized weakness 2. Debility This note was generated with [employer] dictation software. It may contain incorrect words, spelling, and punctuation that were not noted in review of the chart prior to signing ED Disposition - Plan for ED Patient: Disposition: Acute Care [facility] Diagnosis: General weakness, Debility Referrals: Octaviano Franco Chi, MD [Primary Care Provider] -
--- NOTE | 2019-05-13 12:52 | CM.ED ---
Social Work Consult: Resources Informant: Dr. Palmer Met with patient in room. Introduced self as well as social secretary role. Patient currently lives at home with sister. Patient stating to be unable to care for self any longer. Patient recently fell, within the past week and dislocated shoulder. Patient stating to try to use a walker when ambulating but unable to negotiate the walker safely at this time. Patient stating to have been incontinent of bowel this morning and to have needed help from sister, which patient sister is not able to help much. Patient stating to have family that lives local but they are unable to provide 24hr care for patient within the home. Patient stating to have skilled home health care through [facility] for assisted 3 times a week. Patient agreeable to this social secretary updating [employer], if patient is admitted to the hospital. Patient stating to have been at [facility] in February and to have been cut by insurance at that time. Patient stating to make to much for Medicaid. Patient stating to have $600 in savings currently and to make $1700/monthly from social security. Patient is unable to afford private pay in long term and unable to care for self at home due to recent injury. Patient stating to also be diagnosed with MS since 1990. Patient wanting to transition to a long term. Updated Dr. Palmer on above information. Plan is to complete ED work up and consult Hospitalist for admission as patient has [employer] as insurance and a precert will need to be obtained for long term placement. Social work to continue to follow as needed. Travis NGUYEN, PRAVIN
[2019-05-13 13:09] LABS: Absolute Lymphocyte Count 1.28 X10^3/uL (0.83-4.51); Absolute Neutrophil Count 8.1 X10^3/uL (2.0-7.7); Basophil# 0.05 X10^3/uL; Basophil% 0.5 % (0-1); Eosinophil# 0.37 X10^3/uL; Eosinophils% 3.5 % (0-5); Hematocrit 40.7 % (37-47); Hemoglobin 12.6 g/dL (12.0-15.0); Lymphocyte # 1.28 X10^3/ul (4.0); Lymphocyte % 12.2 % (19-41); Mean Corpuscular Hgb 28.8 pg (27.0-32.0); Mean Corpuscular Volume 92.9 fL (81-99); Mean Platelet Vol. 9.9 fl (6.2-12.0); Monocyte# 0.68 X10^3/uL; Monocyte% 6.5 % (0-10); NRBC Flagged by Analyzer 0 % (0-5); Neutrophil # 8.07 X10^3/uL (2.7-7.7); Neutrophil % 76.5 % (47-70); Platelet Count 196 K/mm3 (150-450); RBC Distribution Width CV 14.2 % (11.6-14.6); RBC Distribution Width SD 48.4 fl (35.1-43.9); Red Blood Count 4.38 M/mm3 (4.2-5.4); White Blood Count 10.5 K/mm3 (4.4-11.0)
[2019-05-13 13:29] LABS: ALB/GLOB Ratio 0.6 RATIO (0.9-2.4); AST(SGOT) 34 U/L (15-37); Alanine Aminotransfer ALT/SGPT 22 U/L (13-56); Albumin, Serum 2.2 g/dL (3.2-5.0); Alkaline Phosphatase 95 U/L (45-117); Anion Gap 3 (5-15); BUN 24 mg/dL (7-18); BUN/Creat Ratio 18.6 RATIO (10-20); Calcium,Total 8.9 mg/dL (8.5-10.1); Chloride 109 mmol/L (98-107); Creatinine, Serum 1.29 mg/dL (0.55-1.02); EST Glomerular Filtration Rate 43 mL/min (>60); Est Glom Filt Rate - Afr Amer 52 mL/min (>60); Estimated Creatinine Clearance 27.07 ml/min; Globulin 3.6 g/dL (2.2-4.2); Glucose 122 mg/dL (74-106); Potassium 4.7 mmol/L (3.5-5.1); Protein, Total 5.8 g/dL (6.4-8.2); Sodium Level 140 mmol/L (136-145)
--- NOTE | 2019-05-13 13:36 | NURSING ---
MED SURG OBS COURTNEYERI GENERAL WEAKNESS, DEBILITY
--- NOTE | 2019-05-13 13:44 | CM.ED ---
Social Work Patient to be admitted under observation[facility] Updated on patient being admitted under observation will plan to transition to a senior care. Travis NGUYEN, PRAVIN
[2019-05-13 13:50] LABS: Color, Urine Yellow (Yellow); Glucose, Dipstick Normal (Normal); Ketone-Dipstick Negative (Negative); Leukocyte Esterase-Dipstick 25 /ul (Negative); Nitrite-Dipstick Negative (Negative); Occult Blood-Urine 50 /ul (Negative); Protein-Dipstick 30 mg/dl (Negative); Specific Gravity, Urine 1.025 (1.002-1.030); Urine Bilirubin Dipstick Negative (Negative); Urine Urobilinogen Normal (Normal)
--- NOTE | 2019-05-13 13:50 | RAD_ITS ---
STUDY: X-RAY CHEST REASON FOR EXAM: Female, 74 years old. WEAKNESS, SHOULDER PAIN TECHNIQUE: Single AP portable view of the chest. COMPARISON: Comparison is made with prior study dated February 16, 2019. FINDINGS: The lungs are clear and expanded. There is no demonstrated pleural abnormality. Sternal cerclage wires and vascular clips are present from a prior sternotomy and coronary artery bypass graft procedure (CABG). Mild cardiomegaly. Normal mediastinum and alee. Normal visualized pulmonary arteries. There is atherosclerotic calcification of the aortic arch with tortuosity. There are diffuse degenerative changes of the visualized thoracic spine. Normal visualized ribs, clavicles, and shoulders. There is no demonstrated abnormality of the visualized soft tissue structures of the upper abdomen. RAD/Chest 1 View (Portable) IMPRESSION: No acute abnormality is seen. Electronically Signed: Milo Hughes, at 14:02 EDT , Service support ,
[2019-05-13 13:52] LABS: Urine Clarity Clear (Clear)
[2019-05-13 13:57] LABS: Squamous Epithelial Cells - UA 0-5 SEEN /hpf (5-10)
[2019-05-13 13:59] LABS: Red Blood Cells-Urine 10-25 SEEN /hpf (0-5); White Blood Cells 5-10 SEEN /hpf (0-5)
[2019-05-13 14:00] LABS: Hyaline Cast 0-5 SEEN /lpf (0-5); Mucous, Urine 1+ /hpf (<or=2+)
[2019-05-13 14:01] LABS: Amorphous Sediment 1+
[2019-05-13 14:03] LABS: Bacteria 2+ /hpf (None Seen)
--- NOTE | 2019-05-13 14:10 | HP.PCM_ITS ---
History of Present Illness Date of Admission: 05/13/19 Chief Complaint: weakness The patient is a 74 year old F with a history of multiple falls. Patient fell 2 days ago and then sustained a left shoulder dislocation. Was seen in the emergency room at that time and sent home. Since then, she has been progre ssively weaker and she just has difficulty ambulating. Patient was walker dependent prior to dislocating her shoulder and is just weak and looking to get into a nursing home facility. Patient shares a house with her son and [id number]. Patient denies any concerns for her wellbeing around her son and [id number]. [] Past Medical History Past Medical History (Chronic Problems): Chronic Problems (Last Reviewed 03/05/19 @ 08:46 by Leilani Carey NP-C) Lymphedema (Chronic) Peripheral vascular disease (Chronic) Multiple sclerosis (Chronic) LAURITA (obstructive sleep apnea) (Chronic) Venous insufficiency of both lower extremities (Chronic) Venous insufficiency of both lower extremities (Chronic) Chronic GI bleeding (Chronic) GERD (gastroesophageal reflux disease) (Chronic) Dementia (Chronic) Restrictive airway disease (Chronic) LAURITA (obstructive sleep apnea) (Chronic) Essential hypertension (Chronic) Type 2 diabetes mellitus (Chronic) Diastolic CHF (Chronic) Iron deficiency anemia (Chronic) etiology unknown Ulcer of right lower extremity with fat layer exposed (Chronic) Ulcer of left lower extremity with fat layer exposed (Chronic) PVD (peripheral vascular disease) (Chronic) Presence of stent in coronary artery (Chronic ~08/29/12) PTCA/stent to CX; PTCA/Stent PTCA/stent to prox RCA 05/06; PTCA/LILY in mid to distal RCA 08/29/12 Atherosclerotic heart disease of [place] coronary artery without angina pectoris (Chronic) PTCA/stent to CX; PTCA/Stent PTCA/stent to prox RCA 05/06; PTCA/LILY in mid to distal RCA 08/29/12; CABG x2 ARREGUIN tp LAD and SVG to OM2 01/02/11 Paroxysmal atrial fibrillation (Chronic) Hyperlipidemia (Chronic) Medical History: Medical History (Last Reviewed 05/13/19 @ 14:[address] Douglas Bowman, DO) Peripheral vascular disease (Chronic) I73.9 Multiple sclerosis (Chronic) G35 Diabetic ulcer of both lower extremities (Acute) E11.622, L97.919, L97.929 Carcinoma of lip (Acute) C00.9 Trigeminal neuralgia (Acute) G50.0 History of DVT (deep vein thrombosis) (Acute) Z86.718 LAURITA (obstructive sleep apnea) (Chronic) G47.33 Venous insufficiency of both lower extremities (Chronic) I87.2 Essential hypertension (Chronic) I10 Type 2 diabetes mellitus (Chronic) E11.9 Ulcer of right lower extremity with fat layer exposed (Chronic) L97.912 Ulcer of left lower extremity with fat layer exposed (Chronic) L97.922 Atherosclerotic heart disease of [place] coronary artery without angina pectoris (Chronic) I25.10 PTCA/stent to CX; PTCA/Stent PTCA/stent to prox RCA 05/06; PTCA/LILY in mid to distal RCA 08/29/12; CABG x2 ARREGUIN tp LAD and SVG to OM2 01/02/11 Paroxysmal atrial fibrillation (Chronic) I48.0 Hyperlipidemia (Chronic) E78.5 Allergies codeine Allergy (Unknown, Verified 05/13/19 12:15) Hives cefazolin Allergy (Verified 05/13/19 12:15) Rash ciprofloxacin [From Cipro] Allergy (Verified 05/13/19 12:15) Hives ciprofloxacin HCl [From Cipro] Allergy (Verified 05/13/19 12:15) Hives Latex, Natural Rubber Allergy (Verified 05/13/19 12:15) Rash Penicillins [PCN] Allergy (Verified 05/13/19 12:15) Hives vancomycin Allergy (Verified 05/13/19 12:15) Angioedema adhesive tape Adverse Reaction (Verified 05/13/19 12:15) Rash Home Medications: Ambulatory Orders Medication Instructions Recorded Amiodarone HCl 200 mg PO DAILY 04/09/18 Duloxetine HCl 60 mg PO DAILY 04/09/18 Magnesium Oxide [Mag-Ox 400] 400 mg PO BID 04/09/18 Metoprolol Tartrate [Lopressor 50 mg PO BID 04/09/18 (beta man)] Pantoprazole Sodium [Protonix] 40 mg PO BID 04/09/18 Donepezil HCl 5 mg PO QHS 08/19/18 Potassium Chloride [Klor-Con M20] 20 meq PO BID 08/19/18 hydrALAZINE [Apresoline] 50 mg PO TID 01/04/19 Gabapentin 600 mg PO TID 02/06/19 Apixaban [Eliquis] 2.5 mg PO BID 02/07/19 Ferrous Sulfate 325 mg PO BID #90 02/18/19 amlodipine 2.5 mg tablet 2.5 mg PO DAILY #90 tab 05/12/19 Doxycycline 100 mg PO BID 05/13/19 Furosemide [Lasix] 40 mg PO BID@1000,1800 05/13/19 Ipratropium/Albuterol Sulfate 3 ml INHALATION [id number] 05/13/19 [Duoneb] Surgical History: Surgical History (Last Reviewed 05/13/19 @ 14:[address] Douglas Bowman DO) History of tonsillectomy and adenoidectomy (Resolved) Z98.890 History of total hysterectomy (Resolved) Z98.890, Z90.710 History of cholecystectomy (Resolved) Z98.890, Z90.49 History of hernia repair (Resolved) Z98.890, Z87.19 History of cataract surgery (Resolved) Z98.49 Presence of coronary angioplasty implant and graft (Resolved) Onset Date: ~08/29/12 Z95.5 PTCA/stent to CX; PTCA/Stent PTCA/stent to prox RCA 05/06; PTCA/LILY in mid to distal RCA 08/29/12 S/P CABG (coronary artery bypass graft) (Resolved) Onset Date: ~01/02/11 Z95.1 CABG x2 ARREGUIN tp LAD and SVG to OM2 01/02/11 Surgical History: angioplasty, appendectomy, cholecystectomy, coronary bypass surgery, hysterectomy, tonsillectomy, - Psychiatric History: No 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 hx 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 Douglas Bowman DO) Father Heart disease Cancer Mother Hypertension Cancer Breast cancer Brother Diabetes Hypertension History Items: Cancer - breast cancer, Heart Disease, Hypertension Paternal Family History: Family History (Last Reviewed 05/13/19 @ 14:[address] Douglas Bowman DO) Father Heart disease Cancer Mother Hypertension Cancer Breast cancer Brother Diabetes Hypertension History Items: Cancer, Heart Disease, Hypertension, - - skin cancer. Sibling Family History: Family History (Last Reviewed 05/13/19 @ 14:[address] Douglas Bowman DO) Father Heart disease Cancer Mother Hypertension Cancer Breast cancer Brother Diabetes Hypertension History Items: Diabetes Review of Systems Constitutional: Denies: Anorexia, Night Sweats Eyes: Denies: Blurred vision, Double vision HEENT: Denies: Head Aches, Sinus Congestion, Sinus Drainage Cardiovascular: Reports: Edema. Denies: Chest Pain, Palpitations Respiratory: Denies: Pleuritic Pain, Shortness of breath at rest Gastrointestinal: Denies: Abdominal Pain, Nausea, Vomiting Genitourinary: Denies: Dysuria, Hematuria Musculoskeletal: Reports: Shoulder Pain - left. Denies: Joint Pain, Joint Tenderness Skin: Denies: Dryness, Jaundice Neurological: Reports: Balance problems Hematologic/ Lymphatic: Reports: Easy Bruising. Denies: Easy Bleeding, Hx of blood clot Comment: All review of systems were negative except as mentioned above in the history of present illness and the other review of systems. VTE Information - Inpt Only VTE Present on Admission: No VTE Pharm Prophylaxis ordered?: No Reason prophylaxis not ordered:: Treatment Not Indicated Patient Problems: Active and Suspected Problems (Last Reviewed 03/05/19 @ 08:46 by Leilani Carey NP-C) General weakness (Acute) Debility (Acute) - Physical Exam Vitals/I&O's: Vital Signs Temp Pulse Resp BP Pulse Ox 36.6 C 61 16 139/69 H 96 05/13/19 13:41 05/13/19 13:41 05/13/19 13:41 05/13/19 13:41 05/13/19 13:41 Oxygen Delivery Method Room Air Weight: 89.5 kg Body Mass Index (BMI) 38.5 Finger Stick Blood Glucose 112 General: Alert, No apparent distress HEENT: Atraumatic, Normocephalic Oral: Moist Mucosa, No Gingival or Mucosal Lesions/ Ulcerations Neck: No Nodes, Trachea Midline Lungs: Clear to auscultation, Normal air movement, No rhonchi, No wheeze Cardiovascular: Regular rate, Regular Rhythm, Normal S1, Normal S2, No murmurs Abdomen: Bowel Sounds Present, Soft, Non Tender, Non-Distended Extremities: No Calf Tenderness, Edema Skin: - - Healing wounds on anterior shins Musculoskeletal: No Tenderness to Palpation of Joints or Extremities, No Muscle Wasting Neurological: Deep Tendon Reflexes 2+/4 and Symmetrical, Sensory exam intact to light touch and pain Psych/Mental Status: Flat Affect Laboratory Results 05/13/19 13:00: WBC 10.5, RBC 4.38, Hgb 12.6, Hct 40.7, MCV 92.9, MCH 28.8, MCHC 31.0 L, RDW Std Deviation 48.4 H, RDW Coeff of Carissa 14.2, Plt Count 196, MPV 9.9, Immature Gran % (Auto) 0.800, Neut % (Auto) 76.5 H, Lymph % (Auto) 12.2 L, Dougherty % (Auto) 6.5, Eos % (Auto) 3.5, Baso % (Auto) 0.5, Absolute Neuts (auto) 8.1 H, Absolute Lymphs (auto) 1.28, Nucleated RBC % 0 05/13/19 13:00: Sodium 140, Potassium 4.7, Chloride 109 H, Carbon Dioxide 28.0, Anion Gap 3 L, BUN 24 H, Creatinine 1.29 H, Estim Creat Clear Calc 27.07, Est GFR (MDRD) Af Amer 52 L, Est GFR (MDRD) Non-Af 43 L, BUN/Creatinine Ratio 18.6, Glucose 122 H, Calcium 8.9, Total Bilirubin 0.60, AST 34, ALT 22, Alkaline Phosphatase 95, Troponin I 0.018, Total Protein 5.8 L, Albumin 2.2 L, Globulin 3.6, Albumin/Globulin Ratio 0.6 L 05/13/19 13:20: Urine Color Yellow, Urine Clarity Clear, Urine pH 5.0, Ur Specific Paradox 1.025, Urine Protein 30 H, Urine Glucose (UA) Normal, Urine Ketones Negative, Urine Occult Blood 50 H, Urine Nitrite Negative, Urine Bilirubin Negative, Urine Urobilinogen Normal, Ur Leukocyte Esterase 25 H, Urine RBC 10-25 SEEN, Urine WBC 5-10 SEEN, Ur Squamous Epith Cells 0-5 SEEN, Amorphous Sediment 1+, Urine Bacteria 2+, Hyaline Casts 0-5 SEEN, Urine Mucus 1+ Assessment/Plan All Active Problems (Last Reviewed 03/05/19 @ 08:46 by Leilani Carey, TECHNICAL ASSISTANT-C) General weakness (Acute) Debility (Acute) Acute respiratory failure with hypoxia (Acute) Diabetic ulcer of both lower extremities (Acute) Carcinoma of lip (Acute) Trigeminal neuralgia (Acute) History of DVT (deep vein thrombosis) (Acute) History of tonsillectomy and adenoidectomy (Resolved) History of total hysterectomy (Resolved) History of cholecystectomy (Resolved) History of hernia repair (Resolved) History of cataract surgery (Resolved) Presence of coronary angioplasty implant and graft (Resolved ~08/29/12) S/P CABG (coronary artery bypass graft) (Resolved ~01/02/11) 1. Debility: Patient just been progressively weak and then fell couple days ago where she dislocated her left shoulder. Patient unable to care for herself at home and family apparently is not able to help to the degree that the patient requires at this time. The patient is being brought in and under observation status for the sole purpose of finding a facility for the patient to go to. I did discuss with the patient that as there is no medical necessity for her being admitted, such as infection and so forth, that is possible that insurance may not pay for her stay. Also looking the patient was recently in a facility and purely ran out of days 2 so that may be an issue. Patient was prior looking more for long-term solutions. I told the patient that she may need to liquidate her assets but would need to have case management discuss those options with her more thoroughly. 2. Left shoulder dislocation: Happened 2 days ago after a fall. Continue with sling. Nonweightbearing left upper extremity. Follow-up with orthopedics as outpatient 3. Chronic problems: A. fib, multiple sclerosis, lymphedema. Complicates overall care. 4. VTE prophylaxis: Not indicated as patient is observation and already on anticoagulation. 5. Advanced care planning: Patient is DNR [facility] arrest. OBSV E&M: [id number] Initial observation care L3
[2019-05-13] MEDS: Ferrous Sulfate 325 MG Tablet PO (15:27)
[2019-05-13] MEDS: Magnesium Oxide 400 MG Tablet PO (15:27)
[2019-05-13] MEDS: 0.9% Saline Lock 10 ML Syringe IV (15:28)
[2019-05-13] MEDS: Furosemide 40 MG Tablet PO (15:29)
[2019-05-13] MEDS: Gabapentin 300 MG Capsule PO ×2 (15:31→21:16)
--- NOTE | 2019-05-13 15:36 | NURSING ---
wound photo: right lower leg
[2019-05-13] MEDS: Ipratropium/Albuterol Sulfate 3 ML AMPUL.NEB INHALATION (18:42)
[2019-05-13] MEDS: Acetaminophen 325 MG Tablet 650 MG PO (20:15)
[2019-05-13] MEDS: Pantoprazole Sodium 40 MG Tablet PO (21:16)
[2019-05-13] MEDS: Donepezil HCl 5 MG Tablet PO (21:16)
[2019-05-13] MEDS: APIXABAN 2.5 MG TABLET PO (21:16)
[2019-05-13] MEDS: Doxycycline 100 MG CAPSULE PO (21:17)
[2019-05-13] MEDS: hydrALAZINE 50 MG Tablet PO (21:47)
[2019-05-13] MEDS: Metoprolol Tartrate 50 MG Tablet PO (21:47)
[2019-05-13 22:31] LABS: Bedside Glucose 174 mg/dL (70-110)
[2019-05-14] VITALS (11 sets, daily range): BP systolic 122–154; BP diastolic 46–102; PULSE 56–69; RESP 16–18; TEMP 36.4–36.9; O2SAT 93–97
[2019-05-14] MEDS: Gabapentin 300 MG Capsule PO ×2 (05:25→10:47)
[2019-05-14] MEDS: hydrALAZINE 50 MG Tablet PO ×3 (05:28→21:37)
--- NOTE | 2019-05-14 09:32 | CASEMGMT ---
SW spoke with patient regarding d/c plan. She is hoping to go to [facility] at discharge and stay [facility]. She said she has not yet applied for Medicaid. JAGDEEP told her SW will talk with Quiana at [facility] and determine if we can try to get her insurance to approve her to go skilled or if we need to send her on pending Medicaid. JAGDEEP called Quiana at [facility] and she is in a meeting. SW will call back. Mariaa COSTELLO MSW
[2019-05-14] MEDS: Magnesium Oxide 400 MG Tablet PO ×2 (09:33→18:10)
[2019-05-14] MEDS: amLODIPine 2.5 MG Tablet PO (09:33)
[2019-05-14] MEDS: Metoprolol Tartrate 50 MG Tablet PO ×2 (09:33→21:39)
[2019-05-14] MEDS: Pantoprazole Sodium 40 MG Tablet PO ×2 (09:34→21:38)
[2019-05-14] MEDS: APIXABAN 2.5 MG TABLET PO ×2 (09:34→21:37)
[2019-05-14] MEDS: DULoxetine Hcl 60 MG Capsule PO (09:34)
[2019-05-14] MEDS: Doxycycline 100 MG CAPSULE PO (09:34)
[2019-05-14] MEDS: Amiodarone 200 MG Tablet PO (09:34)
[2019-05-14] MEDS: Furosemide 40 MG Tablet PO ×2 (09:35→18:12)
[2019-05-14] MEDS: Ferrous Sulfate 325 MG Tablet PO ×2 (10:47→18:10)
--- NOTE | 2019-05-14 10:54 | CASEMGMT ---
JAGDEEP completed a Medicaid application with patient. She asked that we talk with her daughter in law Best regarding the Medicaid application etc. Her number is [phone]. JAGDEEP faxed medicaid application to [facility]. JAGDEEP also faxed referral to [facility]. JAGDEEP called Quiana at [facility] letting her know to talk with Best about matters. Hopefully, patient's insurance will approve patient to go to [facility] and then while she is there she can work out her Medicaid. JAGDEEP notified Quiana clancy [facility] of this information. Mariaa COSTELLO MSW
[2019-05-14] MEDS: Nystatin Powder 15gm Bottle 1 APPLIC TOPICAL ×2 (14:49→21:38)
[2019-05-14] MEDS: Gabapentin 600 MG Tablet PO ×2 (14:49→21:38)
[2019-05-14] MEDS: Acetaminophen 325 MG Tablet 650 MG PO (14:54)
--- NOTE | 2019-05-14 14:56 | CASEMGMT ---
JAGDEEP faxed Medicaid application to [facility]. Mariaa COSTELLO MATERIAL HAULER
--- NOTE | 2019-05-14 15:16 | PCM.PROGNOTE ---
Patient Problems: Active and Suspected Problems (Last Reviewed 05/13/19 @ 14:[address] Douglas Bowman, DO) General weakness (Acute) Debility (Acute) Subjective: Patient was seen and examined today, she has no complaints of any fevers, chills, or shortness of breath. I have decided to stop the patient's doxycycline-according to the wound care nurse, patient's right leg wound does not appear to be infected. - Physical Exam Vitals/I&O's: Vital Signs Temp Pulse Resp BP Pulse Ox 98.5 F 61 16 154/71 H 93 05/14/19 09:35 05/14/19 14:51 05/14/19 09:35 05/14/19 09:35 05/14/19 09:35 Oxygen Delivery Method Room Air Weight: 87.7 kg Body Mass Index (BMI) 37.8 Finger Stick Blood Glucose 112 Intake and Output for Last 24 Hours 05/12/19 05/13/19 05/14/19 23:59 23:59 23:59 Intake Total 120 / 360 360 / 360 Output Total 750 / 1150 935 / 935 Balance -630 / -790 -575 / -575 General: Alert, Oriented x3, Cooperative, No apparent distress, Well developed, Well nourished HEENT: Atraumatic, PERRLA, EOMI, Normocephalic Oral: Moist Mucosa Neck: Supple, No JVD, Trachea Midline, Thyroid Normal Size and Texture Lungs: Clear to auscultation, Normal air movement, No rhonchi, No wheeze, No rales Cardiovascular: Regular rate, Regular Rhythm, Normal S1, Normal S2, No murmurs, PMI Normal, No Gallop Abdomen: Bowel Sounds Present, Soft, Non Tender, Non-Distended Extremities: Capillary Refill Less than 3 Seconds, - - Right lower leg is wrapped with surgical dressing and this was not removed for inspection Neurological: Cranial nerves II-XII grossly intact, Neuro grossly intact, Sensory exam intact to light touch and pain Psych/Mental Status: Normal Affect, Appropriate, Alert and oriented to time, place, person, mood and affect Laboratory Results 05/13/19 14:50: Vitamin D 25-Hydroxy 40.0 05/13/19 21:50: POC Glucose 174 H Current Medications Acetaminophen (Tylenol) 650 mg PO Q6H PRN PRN PRN Reason: Pain Score 1-10/Temp > 100.7 F Last Admin: 05/14/19 14:54 Dose: 650 mg Documented by: Albuterol/Ipratropium (Duoneb) 3 ml INHALATION Q6H.RT [facility] Last Admin: 05/14/19 13:26 Dose: Not Given Documented by: Amiodarone HCl (Cordarone) 200 mg PO DAILY [facility] Last Admin: 05/14/19 09:34 Dose: 200 mg Documented by: Amlodipine Besylate (Norvasc) 2.5 mg PO DAILY [facility] Last Admin: 05/14/19 09:33 Dose: 2.5 mg Documented by: Apixaban (Eliquis) 2.5 mg PO BID [facility] Last Admin: 05/14/19 09:34 Dose: 2.5 mg Documented by: Dextrose (D50w Syringe) 0 gm IV X1 PRN; Protocol PRN Reason: Hypoglycemia Donepezil HCl (Aricept) 5 mg PO QHS [facility] Last Admin: 05/13/19 21:16 Dose: 5 mg Documented by: Doxycycline Monohydrate (Doxycycline) 100 mg PO BID [facility] Last Admin: 05/14/19 09:34 Dose: 100 mg Documented by: Duloxetine HCl (Cymbalta) 60 mg PO DAILY [facility] Last Admin: 05/14/19 09:34 Dose: 60 mg Documented by: Ferrous Sulfate (Ferrous Sulfate) 325 mg PO 1200,1700 [facility] Last Admin: 05/14/19 10:47 Dose: 325 mg Documented by: Furosemide (Lasix) 40 mg PO BID@1000,1800 [facility] Last Admin: 05/14/19 09:35 Dose: 40 mg Documented by: Gabapentin (Neurontin) 600 mg PO TID [facility] Last Admin: 05/14/19 14:49 Dose: 600 mg Documented by: Glucagon () 1 mg IM .X1 PRN PRN Reason: Hypoglycemia Hydralazine HCl (Apresoline) 50 mg PO TID [facility] Last Admin: 05/14/19 14:51 Dose: 50 mg Documented by: Magnesium Oxide (Mag-Ox 400) 400 mg PO BIDCM [facility] Last Admin: 05/14/19 09:33 Dose: 400 mg Documented by: Metoprolol Tartrate (Lopressor (Beta Tommy)) 50 mg PO BID [facility] Last Admin: 05/14/19 09:33 Dose: 50 mg Documented by: Nutritional Formula (Lactose Free) (Ensure Enlive) 120 ml PO 4X/DAY [facility] Last Admin: 05/14/19 14:51 Dose: Not Given Documented by: Nystatin (Mycostatin Powder) 1 applic TOPICAL TID [facility]; Protocol Last Admin: 05/14/19 14:49 Dose: 1 applic Documented by: Pantoprazole Sodium (Protonix) 40 mg PO BID [facility] Last Admin: 05/14/19 09:34 Dose: 40 mg Documented by: Potassium Chloride (K-Dur) 20 meq PO BIDCM [facility] Last Admin: 05/14/19 09:33 Dose: 20 meq Documented by: Sodium Chloride () 10 - 40 ml IV UD PRN PRN Reason: SALINE FLUSH Last Admin: 05/13/19 15:28 Dose: 10 ml Documented by: Medical Necessity - Tobacco Use Smoking Status: Former smoker Assessment/Plan All Active Problems (Last Reviewed 05/13/19 @ 14:[address] Douglas Bowman, DO) General weakness (Acute) Debility (Acute) Acute respiratory failure with hypoxia (Acute) Diabetic ulcer of both lower extremities (Acute) Carcinoma of lip (Acute) Trigeminal neuralgia (Acute) History of DVT (deep vein thrombosis) (Acute) History of tonsillectomy and adenoidectomy (Resolved) History of total hysterectomy (Resolved) History of cholecystectomy (Resolved) History of hernia repair (Resolved) History of cataract surgery (Resolved) Presence of coronary angioplasty implant and graft (Resolved ~08/29/12) S/P CABG (coronary artery bypass graft) (Resolved ~01/02/11) #1 generalized debility secondary to multiple medical problems-continue PT and OT, patient will need placement in an extended care facility for rehab services at least short-term. #2 recent left shoulder dislocation #3 multiple sclerosis #4 coronary artery disease #5 paroxysmal atrial fib-patient appears to be in sinus rhythm at this time #6 chronic right lower leg wound-again according to the wound nurse, it does not appear to be infected. #7 hyperlipidemia-patient will be placed on Lipitor Inpatient E&M: [id number] [facility] Hosp L2
[2019-05-14] MEDS: Ipratropium/Albuterol Sulfate 3 ML AMPUL.NEB INHALATION (19:00)
[2019-05-14] MEDS: Donepezil HCl 5 MG Tablet PO (21:37)
[2019-05-14] MEDS: Atorvastatin Calcium 40 MG Tablet PO (21:38)
[2019-05-15 03:30] VITALS: BP 130/67; PULSE 60; RESP 18; TEMP 36.9; O2SAT 94
[2019-05-15 05:42] VITALS: PULSE 60
[2019-05-15] MEDS: Gabapentin 600 MG Tablet PO (05:42)
[2019-05-15] MEDS: hydrALAZINE 50 MG Tablet PO ×2 (05:42→12:48)
[2019-05-15] MEDS: Nystatin Powder 15gm Bottle 1 APPLIC TOPICAL ×2 (05:43→12:48)
[2019-05-15 06:57] VITALS: PULSE 59; RESP 16
[2019-05-15] MEDS: Ipratropium/Albuterol Sulfate 3 ML AMPUL.NEB INHALATION (06:57)
[2019-05-15 09:30] VITALS: BP 137/72; PULSE 62; RESP 18; TEMP 36.6; O2SAT 94
[2019-05-15] MEDS: Pantoprazole Sodium 40 MG Tablet PO (09:41)
[2019-05-15 09:42] VITALS: PULSE 60
[2019-05-15] MEDS: Furosemide 40 MG Tablet PO (09:42)
[2019-05-15] MEDS: DULoxetine Hcl 60 MG Capsule PO (09:42)
[2019-05-15] MEDS: Acetaminophen 325 MG Tablet 650 MG PO (09:42)
[2019-05-15] MEDS: Metoprolol Tartrate 50 MG Tablet PO (09:42)
[2019-05-15] MEDS: amLODIPine 2.5 MG Tablet PO (09:42)
[2019-05-15] MEDS: Magnesium Oxide 400 MG Tablet PO (09:42)
[2019-05-15] MEDS: Amiodarone 200 MG Tablet PO (09:43)
[2019-05-15] MEDS: APIXABAN 2.5 MG TABLET PO (09:43)
--- NOTE | 2019-05-15 10:14 | CASEMGMT ---
This RN CM to room with MATOS form at this time, explanation done-pt voices understanding, and pt signs MATOS form at this time. Original to chart and copy to pt at this time. Pt voices no further questions/concerns/needs at this time. [place] INÉS CM
--- NOTE | 2019-05-15 11:50 | PCM.TXEXTCAR ---
- Diet 05/14/19 18:18 Diet: 1800 emilio Is pt able to select menu?: Yes - Routine Orders/Code Status Code Status: DNRCC-A - with intubation - Wound(s) RIGHT [place] Wound Type: nonhealing traumatic wound Dressing Change: AntiMicrobial (Aquacel AG, etc) - Therapies Weight Bearing: left sling due to recent dislocation Physical Therapy: Eval and Treat Occupational Therapy: Eval and Treat - Problem/Diagnosis (1) Debility Status: Acute Current Visit: Yes (2) Multiple sclerosis Status: Chronic Current Visit: No (3) Essential hypertension Status: Chronic Current Visit: No (4) Type 2 diabetes mellitus Status: Chronic Current Visit: No (5) Atherosclerotic heart disease of [place] coronary artery without angina pectoris Status: Chronic Comment: PTCA/stent to CX; PTCA/Stent PTCA/stent to prox RCA 05/06; PTCA/LILY in mid to distal RCA 08/29/12; CABG x2 ARREGUIN tp LAD and SVG to OM2 01/02/11 Current Visit: No (6) Paroxysmal atrial fibrillation Status: Chronic Current Visit: No (7) Hyperlipidemia Status: Chronic Current Visit: No (8) Dementia Status: Chronic Current Visit: No (9) Iron deficiency anemia Status: Chronic Comment: etiology unknown Current Visit: No (10) Dislocation of left shoulder joint Status: Acute Comment: recent 05/11/19 Current Visit: Yes - Allergies/Procedures Done in Hospital Allergies/Adverse Reactions: Allergies codeine Allergy (Unknown, Verified 05/13/19 12:15) Hives cefazolin Allergy (Verified 05/13/19 12:15) Rash ciprofloxacin [From Cipro] Allergy (Verified 05/13/19 12:15) Hives ciprofloxacin HCl [From Cipro] Allergy (Verified 05/13/19 12:15) Hives Latex, Natural Rubber Allergy (Verified 05/13/19 12:15) Rash Penicillins [PCN] Allergy (Verified 05/13/19 12:15) Hives vancomycin Allergy (Verified 05/13/19 12:15) Angioedema adhesive tape Adverse Reaction (Verified 05/13/19 12:15) Rash Procedures: None - Type of Care/Length of Stay Estimated LOS: Convalescent Care Less Than 30 days Type of Care Needed: Skilled Rehab Potential: Good Prognosis: Good - Additional Orders/Day of Discharge H&P will serve as current which was dated: 05/13/19 Day of Discharge: 05/15/19 - Dietary and Speech Recommendations Dietitian Recommendations/Changes: Will provide pt Cardiac:CHO controlled diet d/t pt pmhx. Will provide Ej 1 packet BID to promote wound healing. Will discontinue glucerna 1.5 w/ meals and ensure enlive at [facility]pass as pt reports good intake at meals. - Follow Up Care Primary Care Physician: Octaviano Franco Chi, MD [Primary Care Provider] -
--- NOTE | 2019-05-15 12:10 | CASEMGMT ---
Patient was approved to go to [facility]. JAGDEEP notified physician, patient, and RN. JAGDEEP faxed orders to [facility]. JAGDEEP called [facility] and arranged for patient to get picked up at via [facility] van. JAGDEEP notified patient, Quiana at [facility], secretary bookkeeper, and RN. JAGDEEP completed PASRR in [facility]. JAGDEEP also notified patient's daughter in law Best. All in agreement with d/c plan. Plan: [facility] at [place] under skilled level of care on a PASRR as she is observation status. [facility] transported her via [facility]. Mariaa COSTELLO SENIOR TECHNICAL RECRUITER
[2019-05-15 12:48] VITALS: PULSE 62
[2019-05-15] MEDS: Gabapentin 400 MG Capsule PO (12:48)
[2019-05-15] MEDS: Ferrous Sulfate 325 MG Tablet PO (12:48)
[2019-05-15] MEDS: carBAMazepine 200 MG Tablet PO (12:48)
--- NOTE | 2019-05-16 09:03 | DS.PCM_ITS ---
Discharge Date and Diagnosis Date of Admission: 05/13/19 Date of Discharge: 05/15/19 - Primary Discharge Diagnosis #1 generalized debility secondary to multiple medical problems #2 recent left shoulder dislocation #3 multiple sclerosis #4 coronary artery disease #5 paroxysmal atrial fib-patient appears to be in sinus rhythm #6 chronic right lower leg wound #7 hyperlipidemia #8 trigeminal neuralgia #9 Chronic kidney disease stage III-etiology unknown #10 type 2 diabetes - Secondary Discharge Diagnosis Chronic Problems (Last Reviewed 05/13/19 @ 14:[address] Douglas Bowman, DO) Lymphedema (Chronic) Peripheral vascular disease (Chronic) Multiple sclerosis (Chronic) LAURITA (obstructive sleep apnea) (Chronic) Venous insufficiency of both lower extremities (Chronic) Venous insufficiency of both lower extremities (Chronic) Chronic GI bleeding (Chronic) GERD (gastroesophageal reflux disease) (Chronic) Dementia (Chronic) Restrictive airway disease (Chronic) LAURITA (obstructive sleep apnea) (Chronic) Essential hypertension (Chronic) Type 2 diabetes mellitus (Chronic) Diastolic CHF (Chronic) Iron deficiency anemia (Chronic) etiology unknown Ulcer of right lower extremity with fat layer exposed (Chronic) Ulcer of left lower extremity with fat layer exposed (Chronic) PVD (peripheral vascular disease) (Chronic) Presence of stent in coronary artery (Chronic ~08/29/12) PTCA/stent to CX; PTCA/Stent PTCA/stent to prox RCA 05/06; PTCA/LILY in mid to distal RCA 08/29/12 Atherosclerotic heart disease of [place] coronary artery without angina pectoris (Chronic) PTCA/stent to CX; PTCA/Stent PTCA/stent to prox RCA 05/06; PTCA/LILY in mid to distal RCA 08/29/12; CABG x2 ARREGUIN tp LAD and SVG to OM2 01/02/11 Paroxysmal atrial fibrillation (Chronic) Hyperlipidemia (Chronic) Hospital Course and Treatment Consultations 05/13/19 14:28 Consult: Onc/Wound/director of physical education Routine Comment: Operations: None Procedures: None Summary of Care Provided: The patient is a 74 year old F who was seen in the emergency room at [facility] after she came to the emergency room stating that she could no longer perform ADLs at home. Patient had a recent left shoulder dislocation and was seen in the emergency room and discharged home. Patient has multiple medical problems including MS. Patient was placed in observation status on PCU, she was seen in consultation by the wound care nurse due to a chronic wound on the patient's right lower extremity which did not appear to be infected. Patient was seen by PT and OT, approval was obtained from the patient's insurance carrier for transfer to an extended care facility for short-term rehab services. On 05/15/2019, patient was seen and examined: On examination she appeared in good health and spirits, she does not appear to be in any distress. Vital signs as documented. Skin warm and dry and without overt rashes. Neck without JVD, thyroid appears normal, trachea is midline, neck is supple. Lungs clear, normal air movement was noted. Heart exam notable for regular rhythm, normal sounds and absence of murmurs, rubs or gallops. Abdomen unremarkable and without evidence of organomegaly, masses, or abdominal aortic enlargement, bowel sounds are present in all 4 quadrants, no abdominal tenderness was noted. Extremities nonedematous, no cyanosis was noted, no clubbing was noted. There is a chronic wound to the patient's right lower extremity. Neuro: Cranial nerves II through XII are grossly intact, no focal motor deficits were noted, sensation to light t ouch and pinprick is intact, motor exam 5/5 throughout. Psych: Patient is alert and oriented x3, she does not appear anxious or depressed, she does not appear agitated. Patient was discharged to an extended care facility on 05/15/2019 in stable condition. - Physical Exam Vitals/I&O's: Vital Signs Temp Pulse Resp BP Pulse Ox 97.9 F 62 18 137/72 H 94 05/15/19 09:30 05/15/19 12:48 05/15/19 09:30 05/15/19 09:30 05/15/19 09:30 Oxygen Delivery Method Room Air Weight: 87.7 kg Body Mass Index (BMI) 37.8 Finger Stick Blood Glucose 112 Intake and Output for Last 24 Hours 05/14/19 05/15/19 05/16/19 23:59 23:59 23:59 Intake Total 710 / 710 Output Total 1960 / 1960 1400 / 1400 Balance -1250 / -1250 -1400 / -1400 Home Medications: Medications to take at Discharge Amiodarone HCl 200 mg PO DAILY 04/09/18 Duloxetine HCl 60 mg PO DAILY 04/09/18 Magnesium Oxide [Mag-Ox 400] 400 mg PO BID 04/09/18 Metoprolol Tartrate [Lopressor (beta man)] 50 mg PO BID 04/09/18 Pantoprazole Sodium [Protonix] 40 mg PO BID 04/09/18 Donepezil HCl 5 mg PO QHS 08/19/18 Potassium Chloride [Klor-Con M20] 20 meq PO BID 08/19/18 hydrALAZINE [Apresoline] 50 mg PO TID 01/04/19 Apixaban [Eliquis] 2.5 mg PO BID 02/07/19 Ferrous Sulfate 325 mg PO BID #90 02/18/19 amlodipine 2.5 mg tablet 2.5 mg PO DAILY #90 tab 05/12/19 Furosemide [Lasix] 40 mg PO BID@1000,1800 05/13/19 Ipratropium/Albuterol Sulfate [Duoneb] 3 ml INHALATION [id number] 05/13/19 Acetaminophen [Tylenol Tablet] 650 mg PO Q6H PRN PRN tab 05/15/19 Carbamazepine [Tegretol] 200 mg PO BIDCM tab 05/15/19 Gabapentin [Neurontin] 400 mg PO TID cap 05/15/19 Nutritional Supplement [Ej - ORANGE FLAVOR] 1 packet PO BIDCM packet 05/15/19 Nystatin Powder [Mycostatin Powder] 1 applic TOPICAL TID bottle 05/15/19 Primary Care Physician: Octaviano Franco Chi, MD [Primary Care Provider] - Disposition: Detention facility Minutes spent on discharge:: 31 Patient Condition:: Stable Medical Necessity - Tobacco Use Smoking Status: Former smoker Meaningful Use Info Meaningful Use Diagnoses (Choose all that apply): None applicable OBSV E&M: 81334 Observation care discharge
== END 2019-05-15 12:02 | disposition skilled nursing facility (03) ==
LOC: ED 12:34 → PCU 13:52
PROVIDERS: Emergency Provider Emergency Medicine; PCP Family Medicine Geriatric Medicine; Visit Provider Internal Medicine
DX: R53.1 Weakness (principal); S43.005D Unspecified dislocation of left shoulder joint, subsequent encounter; W19.XXXD Unspecified fall, subsequent encounter; R94.31 Abnormal electrocardiogram [ECG] [EKG]; I13.0 Hypertensive heart and chronic kidney disease with heart failure and stage 1 through stage 4 chronic kidney disease, or unspecified chronic kidney disease; E11.22 Type 2 diabetes mellitus with diabetic chronic kidney disease; N18.3 Chronic kidney disease, stage 3 (moderate); R00.1 Bradycardia, unspecified; I89.0 Lymphedema, not elsewhere classified; G35 Multiple sclerosis; K21.9 Gastro-esophageal reflux disease without esophagitis; G47.33 Obstructive sleep apnea (adult) (pediatric); E11.51 Type 2 diabetes mellitus with diabetic peripheral angiopathy without gangrene; I25.10 Atherosclerotic heart disease of native coronary artery without angina pectoris; I48.0 Paroxysmal atrial fibrillation; E78.5 Hyperlipidemia, unspecified; E11.621 Type 2 diabetes mellitus with foot ulcer; L97.812 Non-pressure chronic ulcer of other part of right lower leg with fat layer exposed; I50.32 Chronic diastolic (congestive) heart failure; F03.90 Unspecified dementia, unspecified severity, without behavioral disturbance, psychotic disturbance, mood disturbance, and anxiety; Z79.899 Other long term (current) drug therapy; Z79.01 Long term (current) use of anticoagulants; Z86.718 Personal history of other venous thrombosis and embolism; Z95.1 Presence of aortocoronary bypass graft; Z87.891 Personal history of nicotine dependence
CPT/HCPCS: 36415; 71045; 80053; 81001; 82306; 82962; 84484; 85025; 93005; 94640; 97110; 97116; 97162; 97166; 97802; 99218; 99285; A4216; G0378

== ENCOUNTER → 2019-07-04 | Outpatient (CLI) | payer MEDICARE, SELFPAY ==
[2019-05-13 14:31] VITALS: BMI 37.8
--- NOTE | 2019-07-04 13:06 | MRI_ITS ---
STUDY: MRI BRAIN WITH AND WITHOUT CONTRAST REASON FOR EXAM: Female, 74 years old. confusion, hx ms TECHNIQUE: Standardized multiplanar fat and water weighted pulse sequences were obtained. IV dotarem 18ml was administered for the contrast portion of the examination. COMPARISON: MRI 12/20/2017, CT 05/11/2019 FINDINGS: There is severe cerebral atrophy with widening of the extra-axial spaces and ventricular dilatation. There are multiple confluent white matter hyperintensities, distributed throughout the deep white matter tracts of the cerebral hemispheres, consistent with severe chronic white matter ischemic changes. There is no evidence for recent intracranial ischemia or other cause of cytotoxic edema on diffusion weighted imaging (DWI). Normal T2* images of the brain without demonstrated susceptibility artifact. There is no demonstrated hemosiderin stain. Normal bilateral basal ganglia. Normal thalami. There is no extra-axial fluid accumulation. Normal flow voids within the major intracranial circulation suggesting patency by spin echo criteria. Normal venous enhancement. There is no enhancing intra-axial or extra-axial abnormality. Normal sella turcica, pituitary gland, infundibular stalk, optic chiasm and hypothalamus. Normal tectal plate and pineal gland. Normal midbrain, ammon and medulla. Normal cerebellum. Normal basal cisterns. 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 Normal bilateral internal auditory canals. There are bilateral ocular lens implants with otherwise normal intraorbital contents. Normal visualized paranasal sinuses. Normal calvarium and skull base. Normal visualized soft tissue structures. Normal visualized upper cervical spine. MRI/Brain W/WO Contrast IMPRESSION: Involutional changes of the brain, as described above. Electronically Signed: Krunal Payne MD at 15:49 EDT Tel , Service support ,
[2019-07-04 14:35] LABS: CREATININE FINGERSTICK 0.7 mg/dL (0.55-1.02); EGFR FINGERSTICK > 60.0000 mL/min (>60)
== END | disposition home or self-care (01) ==
LOC: MRI 13:00
PROVIDERS: PCP Family Medicine Geriatric Medicine; Referring Provider Family Medicine; Visit Provider Family Medicine
DX: R41.82 Altered mental status, unspecified (principal)
CPT/HCPCS: 70553; A9575

== ENCOUNTER 2019-08-04 10:40 | Emergency (ER) | payer MEDICARE, SELFPAY ==
[2019-05-13 14:31] VITALS: BMI 37.8
[2019-08-04 10:41] VITALS: BP 180/78; PULSE 59; RESP 12; TEMP 36.7; O2SAT 98; BMI 34.1
--- NOTE | 2019-08-04 12:08 | EKG12_ITS ---
Test Reason : NAUSEA Blood Pressure : / mmHG Vent. Rate : 061 BPM Atrial Rate : 061 BPM P-R Int : 192 ms QRS Dur : 086 ms QT Int : 358 ms P-R-T Axes : 071 012 115 degrees QTc Int : 360 ms Normal sinus rhythm ST & T wave abnormality, consider lateral ischemia Abnormal ECG Confirmed by SILVIA STUART ([id number]), video editor BOBBY VELA ([id number]) on 08/07/2019 11:38:52 AM Referred By: AFSANEH Confirmed By:SILVIA STUART
--- NOTE | 2019-08-04 12:24 | CT_ITS ---
STUDY: CT ABDOMEN AND PELVIS WITH CONTRAST REASON FOR EXAM: Female, 74 years old. ABD PAIN/N/V THIS AM, HYSTERECTOMY, APPENDECTOMY, HERNIA REPAIR, CHOLECYSTECTOMY, CABG, SKIN CA RADIATION DOSAGE (If Supplied By Facility): CTDIvol = ( 21.30 ) mGy, DLP = ( 1432.00 ) mGycm TECHNIQUE: Transaxial images were obtained from the dome of the diaphragm to the symphysis pubis without oral contrast. IV 100mL Isovue-300 was administered. Sagittal and coronal images were reconstructed. Individualized dose optimization techniques were used for this CT. COMPARISON: Comparison is made with prior study dated June 27, 2016. FINDINGS: Mild increased linear markings at the lung bases suggestive of linear atelectasis and/or scarring. Coronary artery calcification. There is decreased attenuation of the liver consistent with steatosis. The patient is status post cholecystectomy. Normal spleen. Normal pancreas. Normal bilateral adrenal glands. Normal right kidney. There is a 5 mm nonobstructive calculus in the midportion of the left kidney. Normal visualized stomach. Normal small intestine. A large amount of fecal material is seen in the rectosigmoid colon. The patient is status post appendectomy. There is diffuse atherosclerotic calcification of the abdominal aorta and its major visceral branches, without a demonstrated aneurysm. Normal inferior vena cava. Normal retroperitoneum. The urinary bladder is not well distended although there is evidence of diffuse lateral wall thickening. There is absence of the uterus consistent with a prior hysterectomy. Normal abdominal wall. There are diffuse degenerative changes of the visualized lumbar spine. Prior ORIF of the right intertrochanteric fracture. CT/Abdomen/Pelvis W IV Cont ONLY IMPRESSION: Increased linear markings at the lung bases suggestive of linear atelectasis and/or linear scarring. 5 mm nonobstructive calculus in the mid lower portion of the left kidney. Large amount of fecal material is seen in the rectosigmoid colon. Diffuse bladder wall thickening. Electronically Signed: Milo Hughes, at 13:32 EDT , Service support ,
[2019-08-04 12:36] LABS: Mucous, Urine 0 SEEN /hpf (<or=2+)
[2019-08-04 12:37] LABS: Absolute Neutrophil Count 8.2 X10^3/uL (2.0-7.7); Basophil# 0.03 X10^3/uL; Basophil% 0.3 % (0-1); Hematocrit 46.3 % (37-47); Hemoglobin 14.3 g/dL (12.0-15.0); Lymphocyte % 10.2 % (19-41); Mean Corp Hgb Conc 30.9 g/dL (32-36); Mean Corpuscular Volume 97.1 fL (81-99); Mean Platelet Vol. 9.6 fl (6.2-12.0); Monocyte# 0.49 X10^3/uL; NRBC Flagged by Analyzer 0 % (0-5); Neutrophil # 8.18 X10^3/uL (2.7-7.7); Neutrophil % 83.9 % (47-70); Platelet Count 225 K/mm3 (150-450); RBC Distribution Width CV 13.5 % (11.6-14.6); Red Blood Count 4.77 M/mm3 (4.2-5.4); White Blood Count 9.8 K/mm3 (4.4-11.0)
[2019-08-04 12:48] LABS: ALB/GLOB Ratio 0.8 RATIO (0.9-2.4); AST(SGOT) 20 U/L (15-37); Alanine Aminotransfer ALT/SGPT 22 U/L (13-56); Albumin, Serum 3.3 g/dL (3.2-5.0); Alkaline Phosphatase 129 U/L (45-117); Anion Gap 3 (5-15); BUN 23 mg/dL (7-18); BUN/Creat Ratio 24.9 RATIO (10-20); Calcium,Total 9.7 mg/dL (8.5-10.1); Chloride 103 mmol/L (98-107); Creatinine, Serum 0.92 mg/dL (0.55-1.02); EST Glomerular Filtration Rate 63 mL/min (>60); Est Glom Filt Rate - Afr Amer 76 mL/min (>60); Estimated Creatinine Clearance 41.79 ml/min; Globulin 4.1 g/dL (2.2-4.2); Glucose 133 mg/dL (74-106); Lipase 71 U/L (73-393); Potassium 3.3 mmol/L (3.5-5.1); Protein, Total 7.4 g/dL (6.4-8.2); Sodium Level 143 mmol/L (136-145)
[2019-08-04 12:50] LABS: Color, Urine Yellow (Yellow); Glucose, Dipstick Normal (Normal); Ketone-Dipstick Negative (Negative); Leukocyte Esterase-Dipstick 500 /ul (Negative); Nitrite-Dipstick Negative (Negative); Occult Blood-Urine 150 /ul (Negative); Protein-Dipstick 100 mg/dl (Negative); Specific Gravity, Urine 1.015 (1.002-1.030); Urine Bilirubin Dipstick Negative (Negative); Urine Clarity Cloudy (Clear); Urine Urobilinogen Normal (Normal)
[2019-08-04 12:52] VITALS: BP 131/105; PULSE 61; RESP 17; O2SAT 98
[2019-08-04 12:57] LABS: Bacteria 2+ /hpf (None Seen); Red Blood Cells-Urine 10-25 SEEN /hpf (0-5); Squamous Epithelial Cells - UA 0-5 SEEN /hpf (5-10); White Blood Cells 50-100 SEEN /hpf (0-5)
--- NOTE | 2019-08-04 13:00 | ED.RN ---
PER CALL FROM [facility], PT IS PRESENTING LIKE SHE HAS A UTI AGAIN. PER BISHOP HAS HX OF CHRONIC UTIS, MOST RECENT LASTED FOR OVER A YEAR. REQUIRES SPECIAL ATB TO RESOLVE, HAD CONSULT WITH INFECTIOUS DISEASE MD TO OBTAIN APPROPRIATE ATB.
--- NOTE | 2019-08-04 13:02 | ED.RN ---
MADE AWARE OF INFO IN PREVIOUS NOTE.
[2019-08-04 14:00] VITALS: BP 154/97; PULSE 71; RESP 13; O2SAT 98
--- NOTE | 2019-08-04 16:12 | ED.VIS.GEN ---
History of Present Illness Chief Complaint: Nausea/Vomiting Informant: Family, SNF Limited by: Dementia Onset: Today Narrative: Is a 74-year-old female with long complex medical history including MS and multidrug resistant UTIs presenting with 3 episodes of vomiting today. In addition patient's been more confused today. She does have a charted history of dementia. Patient cannot tell me why she is here and has no complaints at the fact that she is cold. She denies any current nausea or vomiting. Past Medical History - Allergies and Home Meds Allergies/Adverse Reactions: Allergies codeine Allergy (Unknown, Verified 08/04/19 10:45) Hives cefazolin Allergy (Verified 08/04/19 10:45) Rash ciprofloxacin [From Cipro] Allergy (Verified 08/04/19 10:45) Hives ciprofloxacin HCl [From Cipro] Allergy (Verified 08/04/19 10:45) Hives Latex, Natural Rubber Allergy (Verified 08/04/19 10:45) Rash Penicillins [PCN] Allergy (Verified 08/04/19 10:45) Hives vancomycin Allergy (Verified 08/04/19 10:45) Angioedema adhesive tape Adverse Reaction (Verified 08/04/19 10:45) Rash Primary Care Physician: Uriel Mac MD [STAFF PHYSICIAN] - Past Medical History: - - Multiple sclerosis, struct of sleep apnea, dementia, diastolic heart failure, history of UTIs, proximal atrial fibrillation, hyperlipidemia, diabetes mellitus type 2, hyperlipidemia chronic venous insufficiency of the bilateral lower extremities, chronic wounds of the bilateral legs Surgical History: angioplasty, appendectomy, cholecystectomy, coronary bypass surgery, hysterectomy, tonsillectomy, - Smoking Status: Former smoker - Family History Maternal Family History: Family History (Last Reviewed 05/13/19 @ 14:[address] Douglas Bowman DO) Father Heart disease Cancer Mother Hypertension Cancer Breast cancer Brother Diabetes Hypertension Family History: Reports: Cancer - breast cancer, Heart Disease, Hypertension Paternal Family History: Family History (Last Reviewed 05/13/19 @ 14:[address] Douglas Bowman DO) Father Heart disease Cancer Mother Hypertension Cancer Breast cancer Brother Diabetes Hypertension Family History: Reports: Cancer, Heart Disease, Hypertension, - - skin cancer. Sibling Family History: Family History (Last Reviewed 05/13/19 @ 14:[address] Douglas Bowman DO) Father Heart disease Cancer Mother Hypertension Cancer Breast cancer Brother Diabetes Hypertension Family History: Reports: Diabetes Review of Systems ROS: Unable to Obtain - Evidently limited secondary to patient's dementia and confusion Respiratory: Denies: Dyspnea, Cough, Dyspnea on exertion Gastrointestinal: Reports: Nausea, Vomiting Genitourinary: Denies: Dysuria, Hematuria, Frequency Neurological: Reports: - - Confusion Physical Exam Vital Signs/Narrative: Vital Signs Pulse Resp BP Pulse Ox 08/04/19 14:00 71 13 154/97 H 98 08/04/19 12:52 61 17 131/105 H 98 Inital Vital Signs reviewed: Yes General: Well nourished, Well developed, No Acute Distress Head: Normocephalic, Atraumatic Eyes: Perrl, EOMI ENT: Moist mucous membranes, No rhinorrhea Neck: Supple, Nontender Cardiovascular: Regular rate, Regular rhythm, No murmurs Respiratory: No distress, CTA bilaterally, Chest nontender Abdomen: Soft, Nontender, Nondistended, Normal bowel sounds. Negative for: Guarding, Rebound tenderness Back: Nontender, Normal Inspection Extremities: Nontender, No edema Skin: Normal color, No rash Neurological: Alert, Cranial nerves II-XII grossly intact, Normal Strength, Normal Sensation, Confused. Negative for: Left side facial droop, Right side facial droop Psychological: Normal affect, Normal Mood Diagnostic/Tx/Re-eval Clinical Impression(s) from Imaging Studies Abdomen/Pelvis CT 08/04/19 12:24 IMPRESSION: Increased linear markings at the lung bases suggestive of linear atelectasis and/or linear scarring. 5 mm nonobstructive calculus in the mid lower portion of the left kidney. Large amount of fecal material is seen in the rectosigmoid colon. Diffuse bladder wall thickening. Electronically Signed: Milo Hughes, at 13:32 EDT , Service support , Laboratory Data 08/04/19 08/04/19 08/04/19 12:00 12:00 12:31 WBC 9.8 RBC 4.77 Hgb 14.3 Hct 46.3 MCV 97.1 MCH 30.0 MCHC 30.9 L RDW Std Deviation 48.0 H RDW Coeff of Carissa 13.5 Plt Count 225 MPV 9.6 Immature Gran % (Auto) 0.600 Neut % (Auto) 83.9 H Lymph % (Auto) 10.2 L Jackson % (Auto) 5.0 Eos % (Auto) 0.0 Baso % (Auto) 0.3 Absolute Neuts (auto) 8.2 H Absolute Lymphs (auto) 1.00 Nucleated RBC % 0 Sodium 143 Potassium 3.3 L Chloride 103 Carbon Dioxide 37.0 H Anion Gap 3 L BUN 23 H Creatinine 0.92 Estim Creat Clear Calc 41.79 Est GFR (MDRD) Af Amer 76 Est GFR (MDRD) Non-Af 63 BUN/Creatinine Ratio 24.9 H Glucose 133 H Calcium 9.7 Total Bilirubin 0.50 AST 20 ALT 22 Alkaline Phosphatase 129 H Troponin I < 0.015 Total Protein 7.4 Albumin 3.3 Globulin 4.1 Albumin/Globulin Ratio 0.8 L Lipase 71 L Urine Color Yellow Urine Clarity Cloudy Urine pH 8.0 Ur Specific [place] 1.015 Urine Protein 100 H Urine Glucose (UA) Normal Urine Ketones Negative Urine Occult Blood 150 H Urine Nitrite Negative Urine Bilirubin Negative Urine Urobilinogen Normal Ur Leukocyte Esterase 500 H Urine RBC 10-25 SEEN Urine WBC 50-100 SEEN Ur Squamous Epith Cells 0-5 SEEN Urine Bacteria 2+ Urine Mucus 0 SEEN - Rhythm Strip Rhythm Strip: Sinus Rhythm Rate: 61 Ectopy: None - EKG Initial EKG Interpretation: Sinus Rhythm, - - Normal sinus rhythm at a rate of 61 Normal axis Nonspecific T wave changes however very poor baseline secondary to tremor Patient is not appear to have significant change prior to prior EKG on 05/13/2019 - Medical Decision Making Patient is evaluated for vomiting that started today. She also is reported to have been more confused however patient does have a history of dementia as well as sundowning. Her [id number] states that patient has a history of urinary tract infections that are drug-resistant. Patient was just placed and nursing facility because of generalized weakness and inability to care for herself. Patient CBC's is largely unremarkable. Not consistent with sepsis. Her CMP shows a mildly elevated alkaline phosphatase and mildly low potassium of 3.3. Her lipase is 71 and I do not suspect pancreatitis as a cause of her episode of nausea and vomiting. Her alkaline phosphatase is 129 and has been close to this in the past on multiple equate patients. Patient's urinalysis is consistent with infection. Urine culture sent. Prior urine cultures reviewed which shows that her last UTI a couple months ago was positive for Proteus that was sensitive to multiple antibiotics including Bactrim. Patient does not meet criteria for sepsis. CT the abdomen and pelvis does not show any acute intra-abdominal pathology but does show thickened bladder consistent with cystitis. I suspect patient had nausea and vomiting today associated with her UTI. Her confusion could also be associate with this. As patient is already in a halfway facility I think she can go back there for treatment. I did discuss the case with [facility], Dr. Mac, who is comfortable with this plan. Patient be discharged with Bactrim and Zofran. I did discuss plan of care and results with her son did discuss plan of care and results with her son who is agreeable with this. ED Disposition - Plan for ED Patient: Disposition: Home or Assisted Living Diagnosis: UTI (urinary tract infection), Confusion, Vomiting Instructions: ED CYSTITIS Female Adult Prescriptions: Sulfamethoxazole/Trimethoprim [Bactrim Ds Tablet] 1 ea PO BID #14 tab Prescription Printed Ondansetron [Zofran Odt] 4 mg PO Q8H PRN PRN #10 tab PRN Reason: Nausea Prescription Printed Referrals: Uriel Mac MD [STAFF PHYSICIAN] - Additional Instructions: Return to the emergency room if patient develops worsening symptoms or is not able to tolerate oral medications. At this time she does not have findings consistent with sepsis.
--- NOTE | 2019-08-04 16:23 | NURSING ---
CALLED PHYSICANS FOR TRANSPORT. ETA IS 3 HRS
[2019-08-04] MEDS: Smz/Tmp Ds Tablet 1 TABLET PO (16:30)
[2019-08-04 16:31] VITALS: BP 157/91; PULSE 63; RESP 15; O2SAT 98
--- NOTE | 2019-08-04 16:37 | ED.RN ---
REPORT CALLED TO [facility].
[2019-08-04 18:13] VITALS: BP 150/78; PULSE 89; RESP 16; O2SAT 97
== END 2019-08-04 19:07 | disposition home or self-care (01) ==
PROVIDERS: Emergency Provider Emergency Medicine; PCP Family Medicine Geriatric Medicine
DX: N39.0 Urinary tract infection, site not specified (principal); R11.2 Nausea with vomiting, unspecified; R41.0 Disorientation, unspecified; F03.90 Unspecified dementia, unspecified severity, without behavioral disturbance, psychotic disturbance, mood disturbance, and anxiety; I50.32 Chronic diastolic (congestive) heart failure; E78.5 Hyperlipidemia, unspecified; E11.9 Type 2 diabetes mellitus without complications; G35 Multiple sclerosis; Z87.440 Personal history of urinary (tract) infections; Z79.02 Long term (current) use of antithrombotics/antiplatelets; Z79.899 Other long term (current) drug therapy; Z87.891 Personal history of nicotine dependence
CPT/HCPCS: 74177; 80053; 81001; 83690; 84484; 85025; 87077; 87086; 87088; 87186; 93005; 99284; J7030; Q9967; A4216

== ENCOUNTER 2019-08-09 14:44 | Inpatient (IN) | payer MEDICARE, SELFPAY ==
[2019-08-09] VITALS (14 sets, daily range): BP systolic 119–174; BP diastolic 57–120; PULSE 52–65; RESP 16–20; TEMP 36.6–37.1; O2SAT 94–96; BMI 30.4; BMI 28.8
--- NOTE | 2019-08-09 14:46 | EKG12_ITS ---
Test Reason : STROKE ALERT Blood Pressure : / mmHG Vent. Rate : 060 BPM Atrial Rate : 060 BPM P-R Int : 202 ms QRS Dur : 098 ms QT Int : 454 ms P-R-T Axes : 069 -02 121 degrees QTc Int : 454 ms Normal sinus rhythm ST & T wave abnormality, consider lateral ischemia Abnormal ECG Confirmed by SILVIA STUART ([id number]), proposal editor BOBBY VELA ([id number]) on 08/11/2019 2:06:58 PM Referred By: CONSUELO Confirmed By:SILVIA STUART
--- NOTE | 2019-08-09 14:46 | CT_ITS ---
STUDY: CT BRAIN WITHOUT CONTRAST REASON FOR EXAM: Female, 74 years old. STROKE SYMPTOMS RADIATION DOSAGE (If Supplied By Facility): CTDIvol = ( 44.99 ) mGy, DLP = ( 745.49 ) mGycm TECHNIQUE: Transaxial CT imaging of the brain was performed without administration of intravenous contrast material. Individualized dose optimization techniques were used for this CT. COMPARISON: May 11, 2019 FINDINGS: Normal soft tissue structures. Normal calvarium. There is moderate cerebral atrophy with widening of the extra-axial spaces and ventricular dilatation. There are areas of decreased attenuation within the white matter tracts of the supratentorial brain, consistent with microvascular disease changes. Normal basal ganglia and thalami. Normal brainstem. There is mild cerebellar atrophy. There is no intracranial hemorrhage. There are no findings of an acute ischemic infarction. Normal visualized paranasal sinuses. There is mild opacification of the left mastoid air cells. CT/Brain/Head without Contrast IMPRESSION: Chronic involutional changes of the brain. Small vessel ischemia. Minimal opacification of the left mastoid air cells consistent with a history of mastoiditis. N.B. : The above information has been verbally conveyed by Mona Irwin MD to Huber Paniagua MD, on 08/09/2019 15:03:26 (ET). Electronically Signed: Mona Irwin MD at 15:05 EDT Tel , Service support ,
--- NOTE | 2019-08-09 14:49 | ED.DCSUM_ITS ---
History of Present Illness Chief Complaint: Neuro S/Sx Narrative: 74-year-old female presents from local nursing facility with concern for becoming unresponsive. Staff noticed that she was not at her baseline approximately 40 minutes ago. States her last known well was sometime early this morning. Patient cannot provide accurate history of present illness given her severe dementia as well as altered mental status. Past Medical History - Allergies and Home Meds Allergies/Adverse Reactions: Allergies codeine Allergy (Unknown, Verified 08/04/19 10:45) Hives cefazolin Allergy (Verified 08/04/19 10:45) Rash ciprofloxacin [From Cipro] Allergy (Verified 08/04/19 10:45) Hives ciprofloxacin HCl [From Cipro] Allergy (Verified 08/04/19 10:45) Hives Latex, Natural Rubber Allergy (Verified 08/04/19 10:45) Rash Penicillins [PCN] Allergy (Verified 08/04/19 10:45) Hives vancomycin Allergy (Verified 08/04/19 10:45) Angioedema adhesive tape Adverse Reaction (Verified 08/04/19 10:45) Rash Prior records reviewed: Yes Past Medical History: - - HTN, DM, CAD, Dementia, LAURITA Surgical History: angioplasty, appendectomy, cholecystectomy, coronary bypass surgery, hysterectomy, tonsillectomy, - Lives: [facility] Smoking Status: Former smoker Alcohol: None Drugs: None - Family History Maternal Family History: Family History (Last Reviewed 05/13/19 @ 14:[address] Douglas Bowman DO) Father Heart disease Cancer Mother Hypertension Cancer Breast cancer Brother Diabetes Hypertension Family History: Reports: Cancer - breast cancer, Heart Disease, Hypertension Paternal Family History: Family History (Last Reviewed 05/13/19 @ 14:[address] Douglas Bowman DO) Father Heart disease Cancer Mother Hypertension Cancer Breast cancer Brother Diabetes Hypertension Family History: Reports: Cancer, Heart Disease, Hypertension, - - skin cancer. Sibling Family History: Family History (Last Reviewed 05/13/19 @ 14:[address] Douglas Bowman DO) Father Heart disease Cancer Mother Hypertension Cancer Breast cancer Brother Diabetes Hypertension Family History: Reports: Diabetes Review of Systems ROS: Unable to Obtain - altered mental status Physical Exam Inital Vital Signs reviewed: Yes General: Well nourished, Well developed, No Acute Distress Head: Normocephalic, Atraumatic Eyes: Perrl, EOMI ENT: Moist mucous membranes, No rhinorrhea Neck: Supple, Nontender Cardiovascular: Regular rate, Regular rhythm, No murmurs Respiratory: No distress, CTA bilaterally, Chest nontender Abdomen: Soft, Nontender, Nondistended, Normal bowel sounds Back: Nontender, Normal Inspection Extremities: Nontender, No edema Skin: Normal color, No rash Neurological: Alert, Left side facial droop, - - Attempts to follow commands. Psychological: Normal affect, Normal Mood Diagnostic/Tx/Re-eval - Rhythm Strip Rhythm Strip: Sinus Rhythm Rate: 60 Ectopy: None - EKG Initial EKG Interpretation: Sinus Rhythm - Normal sinus rhythm at 60 bpm. WV interval 202 ms. QTC of [address] changes. No evidence of ST elevation or depression. - Medical Decision Making 84-year-old female who presents from nursing facility alert and oriented x0. Patient is protecting airway but is minimally responsive. Stroke team was called with the last all unknown at this time. CT brain shows atrophy without acute hemorrhage. [facility] called and stated the patient has been having issues with swallowing and became more unresponsive following lunch. Concern for aspiration. Patient was given Unasyn. Evidence of a 22,000 leukocytosis. Tele-stroke neurologist examined patient and felt CTA would be pertinent but if negative then likely metabolic cause. CTA shows no evidence of acute occlusion or large vessel stenosis. Lactic acid negative. Blood cultures pending. Patient was given 100 mL's per hour secondary to likely acute renal insufficiency with a creatinine of 1.7 which is increased to time since previous approximately 5 days ago. Patient will be started on meropenem given her extensive allergy profile. Patient tolerating approximately 5 to 6 L by nasal cannula. She is chronically on 3 L at long-term. Spoke with hospitalist Dr. Ramirez who is agreeable with admission. Spoke with family who is also agreeable and patient was admitted in stable condition. Current CODE STATUS DNR CCA DO NOT INTUBATE. - Critical Care Time Critical care time (excluding procedures): 30-74 minutes - Continued monitoring for inital stroke team and consultation with neurlogy and radiology. discussions with family and reviewing past medical history., Discussing w/Patient &/or Family/Sports Activities Foul Judge, Discussing w/Consultants, Arranging Admission or Transfer, Performing Direct Patient Care at Bedside ED Disposition - Plan for ED Patient: Disposition: Acute [facility] Diagnosis: Aspiration pneumonia, Altered mental status, Hypoxemia, Acute renal insufficiency
[2019-08-09 15:06] LABS: Bedside Glucose 97 mg/dL (70-110)
--- NOTE | 2019-08-09 15:07 | ED.RN ---
this RN spoke with son denny and marshall chopra to update on pt coming to ER and pt status at this time.
--- NOTE | 2019-08-09 15:26 | CT_ITS ---
STUDY: CTA HEAD AND NECK WITH CONTRAST REASON FOR EXAM: Female, 74 years old. STROKE RADIATION DOSAGE (If Supplied By Facility): CTDIvol = ( 22.76 ) mGy, DLP = ( 741.32 ) mGycm TECHNIQUE: CT angiography was performed with a multi-detector CT scanner. Data acquisition was obtained from the skull base through the vertex following intravenous administration of 100 CC ISOVUE 370. MIP images were reconstructed from the axial data set. Post-processing of the angiographic images was performed, with multiplanar reformation and 3D reconstruction. Individualized dose optimization techniques were used for this CT. COMPARISON: No relevant priors. FINDINGS: Normal bilateral petrous carotid arteries. There is calcified plaque formation of the right cavernous carotid artery, with a moderate stenosis (50-75%). There is calcified plaque formation of the left cavernous carotid artery, with a moderate stenosis (50-75%). Normal right A1 segments of the anterior cerebral artery. Normal left A1 segments of the anterior cerebral artery. Normal intact anterior communicating artery (ACOM). Normal bilateral A2 segments of the anterior cerebral arteries. Normal right M1 and M2 segments of the middle cerebral arteries, with a normal M1 bifurcation. Normal left M1 and M2 segments of the middle cerebral arteries, with a normal M1 bifurcation. Normal right posterior communicating artery (PCOM). Normal left posterior communicating artery (PCOM). There is a small atretic left vertebral artery with a dominant right vertebral artery. Normal basilar artery with a normal basilar bifurcation. The visualized bilateral superior cerebellar (SCA) arteries are normal. Normal bilateral P1, P2 and visualized P3 segments of the posterior cerebral arteries. There is no demonstrated aneurysm of the [place] of [place]. There is no demonstrated abnormality of the visualized brain. AORTIC ARCH: There is atherosclerotic calcific plaque formation of the aortic arch and great vessels arising from the aortic arch, without a hemodynamically significant stenosis. There is a normal origin of the brachiocephalic, left common carotid, and left subclavian arteries. RIGHT CAROTID ARTERIES: There is atherosclerotic tortuous elongation of the right common carotid artery. There is moderate atherosclerotic plaque formation with mild narrowing of the right carotid bulb. There is mild atherosclerotic plaque formation of the origin of the right internal carotid artery with less than 50% cross sectional diameter stenosis. There is atherosclerotic tortuous elongation of the cervical portion of the right internal carotid artery. Normal origin of the right external carotid artery (ECA). LEFT CAROTID ARTERIES: There is atherosclerotic tortuous elongation of the left common carotid artery. There is moderate atherosclerotic plaque formation with moderate narrowing of the carotid bulb. There is moderate atherosclerotic plaque formation of the origin of the left internal carotid artery with an estimated stenosis of 50-69% stenosis. There is atherosclerotic tortuous elongation of the cervical portion of the left internal carotid artery. Normal origin of the left external carotid artery (ECA). VERTEBRAL ARTERIES: There is enhancement within the bilateral vertebral arteries with a small left vertebral artery, and a dominant right vertebral artery. CT/CTA Head AND Neck W/ Contrast IMPRESSION: [id number] grade stenosis of both proximal ICAs worse on the left. Moderate grade stenosis of both cavernous carotid arteries related to calcified plaque. No definite occlusions or acute thrombosis. Electronically Signed: Nikolas Savage MD at 16:22 EDT , Service support ,
--- NOTE | 2019-08-09 15:30 | ED.RN ---
RN UNABLE TO COMPLETE [facility] PATIENT IS UNRESPONSIVE.
[2019-08-09 15:36] LABS: Absolute Lymphocyte Count 2.41 X10^3/uL (0.83-4.51); Basophil# 0.05 X10^3/uL; Basophil% 0.2 % (0-1); Eosinophil# 0.07 X10^3/uL; Eosinophils% 0.3 % (0-5); Hematocrit 42.8 % (37-47); Hemoglobin 13.5 g/dL (12.0-15.0); Lymphocyte # 2.41 X10^3/ul (4.0); Lymphocyte % 10.6 % (19-41); Mean Corp Hgb Conc 31.5 g/dL (32-36); Mean Corpuscular Hgb 30.3 pg (27.0-32.0); Monocyte# 1.08 X10^3/uL; Monocyte% 4.7 % (0-10); NRBC Flagged by Analyzer 0 % (0-5); Neutrophil # 18.99 X10^3/uL (2.7-7.7); Neutrophil % 83.5 % (47-70); Platelet Count 276 K/mm3 (150-450); RBC Distribution Width CV 13.7 % (11.6-14.6); RBC Distribution Width SD 48.2 fl (35.1-43.9); Red Blood Count 4.46 M/mm3 (4.2-5.4); White Blood Count 22.8 K/mm3 (4.4-11.0)
[2019-08-09] MEDS: 0.9% Normal Saline 1,000 ML 100 ML IV ×2 (15:38→19:54)
--- NOTE | 2019-08-09 15:40 | RAD_ITS ---
STUDY: X-RAY CHEST REASON FOR EXAM: Female, 74 years old. Stroke symptoms TECHNIQUE: Single frontal view of the chest. COMPARISON: May 13, 2019 FINDINGS: There are new right perihilar and left basilar ill-defined opacities. Sternal cerclage wires are present from a prior sternotomy. The cardiac silhouette is within normal limits. Normal mediastinum and alee. Normal visualized pulmonary arteries. Normal visualized aortic arch and descending thoracic aorta. Normal visualized thoracic spine. Normal visualized ribs, clavicles, and shoulders. There is no demonstrated abnormality of the visualized soft tissue structures of the upper abdomen. RAD/Chest 1 View IMPRESSION: New bilateral opacities concerning for multifocal pneumonia. Electronically Signed: Mona Irwin MD at 17:11 EDT Tel , Service support ,
[2019-08-09 15:55] LABS: International Normalized Ratio 1.2; Prothrombin Time (Protime)PT. 14.4 SECONDS (11.7-14.9)
[2019-08-09 15:56] LABS: Partial Thromboplast Time 34.1 Seconds (24.1-36.2)
--- NOTE | 2019-08-09 16:00 | ED.RN ---
per dr. blackmon rn to discontinue nih
[2019-08-09 16:02] LABS: Anion Gap 5 (5-15); BUN 33 mg/dL (7-18); BUN/Creat Ratio 19.2 RATIO (10-20); Calcium,Total 9.2 mg/dL (8.5-10.1); Chloride 105 mmol/L (98-107); Creatinine, Serum 1.72 mg/dL (0.55-1.02); EST Glomerular Filtration Rate 31 mL/min (>60); Est Glom Filt Rate - Afr Amer 37 mL/min (>60); Estimated Creatinine Clearance 25.43 ml/min; Glucose 100 mg/dL (74-106); Lactic Acid 0.8 mmol/L (0.4-1.9); Potassium 4.1 mmol/L (3.5-5.1); Sodium Level 141 mmol/L (136-145)
[2019-08-09 16:17] LABS: Mucous, Urine 0 SEEN /hpf (<or=2+)
[2019-08-09 16:19] LABS: Color, Urine Yellow (Yellow); Glucose, Dipstick Normal (Normal); Ketone-Dipstick Negative (Negative); Leukocyte Esterase-Dipstick 500 /ul (Negative); Nitrite-Dipstick Negative (Negative); Occult Blood-Urine 50 /ul (Negative); Protein-Dipstick 30 mg/dl (Negative); Urine Bilirubin Dipstick Negative (Negative); Urine Clarity Cloudy (Clear); Urine Urobilinogen Normal (Normal)
[2019-08-09 16:24] LABS: White Blood Cells >100 SEEN /hpf (0-5)
[2019-08-09 16:25] LABS: Bacteria 1+ /hpf (None Seen); Red Blood Cells-Urine 0-5 SEEN /hpf (0-5); Squamous Epithelial Cells - UA 0-5 SEEN /hpf (5-10)
[2019-08-09 17:17] LABS: Probe Check PASS; Specimen Processing Control PASS
--- NOTE | 2019-08-09 17:55 | PCM.HP.STD ---
Problem List (1) Ischemic cerebrovascular accident (CVA) Status: Suspected Comment: vs acute metabolic encephalopathy (2) Bilateral pneumonia Status: Acute Comment: maybe due to aspiration however, it could be bacteremic due to UTI (3) Pyelonephritis Status: Acute Comment: Due to Enterobacter cloaca complex-resistant to Bactrim which is the antibiotic the pt was placed on when diagnosed with UTI earlier in the week (4) Acute on chronic renal failure Status: Acute Qualifiers: Chronic kidney disease stage: stage 3 (moderate) (5) Acute respiratory insufficiency Status: Acute (6) General weakness Status: Chronic (7) Debility Status: Chronic (8) Dislocation of left shoulder joint Status: Inactive Comment: recent 05/11/19 (9) Aspiration pneumonia Status: Resolved (10) Peripheral vascular disease Status: Chronic (11) Multiple sclerosis Status: Chronic (12) Diabetic ulcer of both lower extremities Status: Resolved (13) Carcinoma of lip Status: Chronic (14) Trigeminal neuralgia Status: Chronic (15) History of DVT (deep vein thrombosis) Status: Chronic (16) LAURITA (obstructive sleep apnea) Status: Chronic (17) Venous insufficiency of both lower extremities Status: Chronic (18) History of tonsillectomy and adenoidectomy Status: Inactive (19) History of total hysterectomy Status: Inactive (20) History of cholecystectomy Status: Inactive (21) History of hernia repair Status: Inactive (22) History of cataract surgery Status: Inactive (23) Cellulitis of right leg Status: Resolved (24) Presence of coronary angioplasty implant and graft Status: Resolved Comment: PTCA/stent to CX; PTCA/Stent PTCA/stent to prox RCA 05/06; PTCA/LILY in mid to distal RCA 08/29/12 (25) Venous insufficiency of both lower extremities Status: Chronic (26) Chronic GI bleeding Status: Chronic (27) GERD (gastroesophageal reflux disease) Status: Chronic (28) Dementia Status: Chronic Qualifiers: Dementia type: unspecified type Dementia behavioral disturbance: without behavioral disturbance Qualified Code(s): F03.90 - Unspecified dementia without behavioral disturbance (29) Restrictive airway disease Status: Chronic (30) LAURITA (obstructive sleep apnea) Status: Chronic (31) Essential hypertension Status: Chronic (32) Type 2 diabetes mellitus Status: Chronic Qualifiers: (33) Diastolic CHF Status: Chronic Qualifiers: Heart failure chronicity: chronic Qualified Code(s): I50.32 - Chronic diastolic (congestive) heart failure (34) Iron deficiency anemia Status: Chronic Comment: etiology unknown (35) Ulcer of right lower extremity with fat layer exposed Status: Chronic (36) Ulcer of left lower extremity with fat layer exposed Status: Resolved (37) Presence of stent in coronary artery Status: Chronic Comment: PTCA/stent to CX; PTCA/Stent PTCA/stent to prox RCA 05/06; PTCA/LILY in mid to distal RCA 08/29/12 (38) Atherosclerotic heart disease of [place] coronary artery without angina pectoris Status: Chronic Qualifiers: Comment: PTCA/stent to CX; PTCA/Stent PTCA/stent to prox RCA 05/06; PTCA/LILY in mid to distal RCA 08/29/12; CABG x2 ARREGUIN tp LAD and SVG to OM2 01/02/11 (39) S/P CABG (coronary artery bypass graft) Status: Resolved Comment: CABG x2 ARREGUIN tp LAD and SVG to OM2 01/02/11 (40) Paroxysmal atrial fibrillation Status: Chronic (41) Hyperlipidemia Status: Chronic Qualifiers: History of Present Illness Date of Admission: 08/09/19 Chief Complaint: found unresponsive at the [facility], had trouble swallowing at lunch, reportedly had posturing The patient is a 74 year old F with an extensive past medical history including diabetes mellitus type 2, hypertension, hyperlipidemia, coronary artery disease, multiple sclerosis, GERD, vascular disease, chronic venous insufficiency, history of DVT on chronic anticoagulation with Eliquis, coronary stents, chronic renal failure stage III, trigeminal neuralgia, obstructive sleep apnea, dementia, restrictive airway disease, chronic diastolic congestive heart failure, history of iron deficiency anemia, history of CABG, paroxysmal atrial fibrillation and a recetnly diagnosed UTI on 08/04/19. She has multiple drug allergies and she was placed on Bactrim but, she grew Enterobacter cloaca high on the urine culture and it is resistant to Bactrim. She was brought to the emergency department at [facility] on 08/09/[address] [facility] because she was unresponsive. The staff noticed that she was not at her baseline approximately 40 minutes prior to presentation to the emergency room. Her last known well was earlier in the morning. The triage note stated that she was posturing. A stat noncontrasted brain CT in the emergency department revealed small vessel ischemia with chronic involutional changes and no acute changes. A CTA of the head and neck showed mild to moderate stenosis of both proximal internal carotid arteries, worse on the left. There was moderate stenosis of both cavernous carotid arteries related to calcified plaque and there were no definite occlusions or acute thrombosis. Tele-stroke consult was obtained and the diagnosis was ischemic stroke versus metabolic/infectious encephalopathy. A follow-up MRI was recommended. The patient is improving and since we do not have a LKW she is not a candidate for TPA and she is also on Eliquis. Per the NH she has not been eating well recently. Vital signs at presentation to the emergency department were temperature 98.5, pulse rate 64, blood pressure 159/120, respiratory rate 16 and she was 94% saturated on a 3 L nasal cannula. White blood cell count was elevated at 22.8 with 83.5% neutrophils. Hemoglobin was normal at 13.5 and platelets were normal at 276,000. PT was 14.4 and the PTT was 34.1. An ABG done on a 4 L nasal cannula showed a PCO2 of 48 and a PO2 of 76 with a pH of 7.42. BMP showed normal electrolytes and the BUN was 33 with a creatinine of 1.72 which is up from 0.92 on 08/04/2019. Troponin was less than 0.015. UA showed greater than 100 WBCs per high-power field and was nitrite negative. There was bacteria present. COVID-19 was negative. She is being admitted to the PCU for suspected ischemic CVA however she woke up in the ED and when I was examining her she was able to follow simple commands. I suspect that she has metabolic/toxic encephalopathy. Past Medical History Past Medical History (Chronic Problems): Chronic Problems (Last Reviewed 05/13/19 @ 14:[address] Douglas Bowman, DO) General weakness (Chronic) Debility (Chronic) Peripheral vascular disease (Chronic) Multiple sclerosis (Chronic) Carcinoma of lip (Chronic) Trigeminal neuralgia (Chronic) History of DVT (deep vein thrombosis) (Chronic) LAURITA (obstructive sleep apnea) (Chronic) Venous insufficiency of both lower extremities (Chronic) Venous insufficiency of both lower extremities (Chronic) Chronic GI bleeding (Chronic) GERD (gastroesophageal reflux disease) (Chronic) Dementia (Chronic) Restrictive airway disease (Chronic) LAURITA (obstructive sleep apnea) (Chronic) Essential hypertension (Chronic) Type 2 diabetes mellitus (Chronic) Diastolic CHF (Chronic) Iron deficiency anemia (Chronic) etiology unknown Ulcer of right lower extremity with fat layer exposed (Chronic) Presence of stent in coronary artery (Chronic ~08/29/12) PTCA/stent to CX; PTCA/Stent PTCA/stent to prox RCA 05/06; PTCA/LILY in mid to distal RCA 08/29/12 Atherosclerotic heart disease of [place] coronary artery without angina pectoris (Chronic) PTCA/stent to CX; PTCA/Stent PTCA/stent to prox RCA 05/06; PTCA/LILY in mid to distal RCA 08/29/12; CABG x2 ARREGUIN tp LAD and SVG to OM2 01/02/11 Paroxysmal atrial fibrillation (Chronic) Hyperlipidemia (Chronic) Medical History: Medical History (Last Reviewed 08/09/19 @ 19:[address] Luz Ramirez DO) Peripheral vascular disease (Chronic) I73.9 Multiple sclerosis (Chronic) G35 Carcinoma of lip (Chronic) C00.9 Trigeminal neuralgia (Chronic) G50.0 History of DVT (deep vein thrombosis) (Chronic) Z86.718 LAURITA (obstructive sleep apnea) (Chronic) G47.33 Venous insufficiency of both lower extremities (Chronic) I87.2 Essential hypertension (Chronic) I10 Type 2 diabetes mellitus (Chronic) E11.9 Ulcer of right lower extremity with fat layer exposed (Chronic) L97.912 Atherosclerotic heart disease of [place] coronary artery without angina pectoris (Chronic) I25.10 PTCA/stent to CX; PTCA/Stent PTCA/stent to prox RCA 05/06; PTCA/LILY in mid to distal RCA 08/29/12; CABG x2 ARREGUIN tp LAD and SVG to OM2 01/02/11 Paroxysmal atrial fibrillation (Chronic) I48.0 Hyperlipidemia (Chronic) E78.5 Cellulitis of right leg (Resolved) L03.115 Diabetic ulcer of both lower extremities (Resolved) E11.622, L97.919, L97.929 Ulcer of left lower extremity with fat layer exposed (Resolved) L97.922 Allergies codeine Allergy (Unknown, Verified 08/04/19 10:45) Hives cefazolin Allergy (Verified 08/04/19 10:45) Rash ciprofloxacin [From Cipro] Allergy (Verified 08/04/19 10:45) Hives ciprofloxacin HCl [From Cipro] Allergy (Verified 08/04/19 10:45) Hives Latex, Natural Rubber Allergy (Verified 08/04/19 10:45) Rash Penicillins [PCN] Allergy (Verified 08/04/19 10:45) Hives vancomycin Allergy (Verified 08/04/19 10:45) Angioedema adhesive tape Adverse Reaction (Verified 08/04/19 10:45) Rash Home Medications: Ambulatory Orders Medication Instructions Recorded Amiodarone HCl 200 mg PO DAILY 04/09/18 Duloxetine HCl 60 mg PO DAILY 04/09/18 Magnesium Oxide [Mag-Ox 400] 400 mg PO BID 04/09/18 Donepezil HCl 5 mg PO QHS 08/19/18 Potassium Chloride [Klor-Con M20] 20 meq PO BID 08/19/18 hydrALAZINE [Apresoline] 50 mg PO TID 01/04/19 Apixaban [Eliquis] 2.5 mg PO BID 02/07/19 Ferrous Sulfate 325 mg PO BID #90 02/18/19 Furosemide [Lasix] 40 mg PO DAILY 05/13/19 Acetaminophen [Tylenol Tablet] 650 mg PO Q6H PRN PRN tab 05/15/19 Gabapentin [Neurontin] 400 mg PO TID cap 05/15/19 Nutritional Supplement [Ej - 1 packet PO BIDCM packet 05/15/19 ORANGE FLAVOR] Nystatin Powder [Mycostatin Powder] 1 applic TOPICAL TID bottle 05/15/19 amlodipine 2.5 mg tablet 2.5 mg PO DAILY #90 tab 05/19/19 Atorvastatin Calcium [Lipitor] 20 mg PO QHS 08/04/19 Carbamazepine [Tegretol] 400 mg PO QHS 08/04/19 Omeprazole [Prilosec] 20 mg PO DAILY 08/04/19 Ondansetron [Zofran Odt] 4 mg PO Q8H PRN PRN #10 tab 08/04/19 Sulfamethoxazole/Trimethoprim 1 ea PO BID #14 tab 08/04/19 [Bactrim Ds Tablet] Surgical History: Surgical History (Last Reviewed 08/09/19 @ 19:[address] Luz Ramirez DO) Presence of coronary angioplasty implant and graft (Resolved) Onset Date: ~08/29/12 Z95.5 PTCA/stent to CX; PTCA/Stent PTCA/stent to prox RCA 05/06; PTCA/LILY in mid to distal RCA 08/29/12 S/P CABG (coronary artery bypass graft) (Resolved) Onset Date: ~01/02/11 Z95.1 CABG x2 ARREGUIN tp LAD and SVG to OM2 01/02/11 History of cataract surgery (Inactive) Z98.49 History of cholecystectomy (Inactive) Z98.890, Z90.49 History of hernia repair (Inactive) Z98.890, Z87.19 History of tonsillectomy and adenoidectomy (Inactive) Z98.890 History of total hysterectomy (Inactive) Z98.890, Z90.710 Surgical History: angioplasty, appendectomy, cholecystectomy, coronary bypass surgery, hysterectomy, tonsillectomy, - Psychiatric History: No 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 hx [employer] History: No pertinent [employer] history Lives: Residential - [facility] Smoking Status: Former smoker Alcohol: None Drugs: None - *Family History Maternal Family History: Family History (Last Reviewed 08/09/19 @ 19:[address] Luz Ramirez DO) Father Heart disease Cancer Mother Hypertension Cancer Breast cancer Brother Diabetes Hypertension History Items: Cancer - breast cancer, Heart Disease, Hypertension Paternal Family History: Family History (Last Reviewed 08/09/19 @ 19:[address] Luz Ramirez DO) Father Heart disease Cancer Mother Hypertension Cancer Breast cancer Brother Diabetes Hypertension History Items: Cancer, Heart Disease, Hypertension, - - skin cancer. Sibling Family History: Family History (Last Reviewed 08/09/19 @ 19:[address] Luz Ramirez DO) Father Heart disease Cancer Mother Hypertension Cancer Breast cancer Brother Diabetes Hypertension History Items: Diabetes Review of Systems Unable to obtain accurate/complete ROS d/t: pt is confused and unable to answer questions.....see Hx of CC for what NH VTE Information - Inpt Only VTE Present on Admission: No VTE Mechan Device Prophylaxis: Knee High KENDRA Hose VTE Pharm Prophylaxis ordered?: No Reason prophylaxis not ordered:: Treatment Not Indicated - she is on chronic anticoagulation with Eliquis which will be held until she can swallow. she is being started on a heparin infusion for now Patient Problems: Active and Suspected Problems (Last Reviewed 05/13/19 @ 14:[address] Douglas Jopperi, DO) Ischemic cerebrovascular accident (CVA) (Suspected) vs acute metabolic encephalopathy Bilateral pneumonia (Acute) maybe due to aspiration however, it could be bacteremic due to UTI Pyelonephritis (Acute) Due to Enterobacter cloaca complex-resistant to Bactrim which is the antibiotic the pt was placed on when diagnosed with UTI earlier in the week Acute on chronic renal failure (Acute) Acute respiratory insufficiency (Acute) - Physical Exam Vitals/I&O's: Vital Signs Temp Pulse Resp BP Pulse Ox 98.5 F 58 L 20 H 121/97 H 95 08/09/19 14:45 08/09/19 17:55 08/09/19 17:55 08/09/19 17:55 08/09/19 17:55 Oxygen Flow Rate (L/min) 3 Oxygen Delivery Method Nasal Cannula Weight: 182 lb 12.211 oz Body Mass Index (BMI) 30.4 Finger Stick Blood Glucose 97 General: Well developed, Well nourished, Confused HEENT: Atraumatic, PERRLA, EOMI, Normocephalic Oral: Dry Mucosa, - - tongue is coated Neck: Supple, No JVD, Negative Carotid Bruits, No Nodes, No Nuchal Rigidity, Trachea Midline Lungs: No rhonchi, Diminished, - - not tachypneic and no accessory muscle use, no labored breathing Cardiovascular: Regular rate, Regular Rhythm, Normal S1, Normal S2, No murmurs, No Gallop Abdomen: Bowel Sounds Present, Soft, Non Tender, Distended - mild distension with mild tympany, Obese, - - No guarding with palpation Extremities: No cyanosis, Edema - BL LE's of the distal pretibial areas and the ankles, - - she has an ulceration or a skin tear on the RLE over the distal tibial shaft...dee dee is no erythema, no odor and no purulent DC. The base is 100% granulating Skin: No rashes, Ulcer/ Wound - She has an ulceration on the right lower extremity over the distal tibia which has no periwound erythema and no purulent discharge. There is no odor and there is no increased warmth to touch in the surrounding area. The ulcer base is 100% granulating., - Neurological: Cranial nerves II-XII grossly intact - questionable L facial droop......it goes away when she smiles. The tongue protrudes on the midline. She withdraws to painful stimulus BL UE's and LE's. She is able to follow simple commands. She can not tell me the month and she also could not tell me her age. she could not tell me the name of her son who was present in the room. Babinski's are downgoing BL. she can not tell me where I am touching her.....kept saying the neck.....but she does withdraw to paiunful stimulus. Psych/Mental Status: - - very confused Laboratory Results 08/09/19 14:59: POC Glucose 97 08/09/19 15:05: PT 14.4, INR 1.2, APTT 34.1 08/09/19 15:05: Sodium 141, Potassium 4.1, Chloride 105, Carbon Dioxide 31.0, Anion Gap 5, BUN 33 H, Creatinine 1.72 H, Estim Creat Clear Calc 25.43, Est GFR (MDRD) Af Amer 37 L, Est GFR (MDRD) Non-Af 31 L, BUN/Creatinine Ratio 19.2, Glucose 100, Calcium 9.2, Troponin I < 0.015 08/09/19 15:05: Lactic Acid 0.8 08/09/19 15:40: COVID-19 ([facility]) Not Detected 08/09/19 15:45: WBC 22.8 H, RBC 4.46, Hgb 13.5, Hct 42.8, MCV 96.0, MCH 30.3, MCHC 31.5 L, RDW Std Deviation 48.2 H, RDW Coeff of Carissa 13.7, Plt Count 276, MPV 10.0, Immature Gran % (Auto) 0.700, Neut % (Auto) 83.5 H, Lymph % (Auto) 10.6 L, [place] % (Auto) 4.7, Eos % (Auto) 0.3, Baso % (Auto) 0.2, Absolute Neuts (auto) 19.0 H, Absolute Lymphs (auto) 2.41, Nucleated RBC % 0 08/09/19 16:11: Urine Color Yellow, Urine Clarity Cloudy, Urine pH 7.0, Ur Specific [place] 1.010, Urine Protein 30 H, Urine Glucose (UA) Normal, Urine Ketones Negative, Urine Occult Blood 50 H, Urine Nitrite Negative, Urine Bilirubin Negative, Urine Urobilinogen Normal, Ur Leukocyte Esterase 500 H, Urine RBC 0-5 SEEN, Urine WBC >100 SEEN, Ur Squamous Epith Cells 0-5 SEEN, Urine Bacteria 1+, Urine Mucus 0 SEEN Current Medications Sodium Chloride () 1,000 mls @ 100 mls/hr IV .Q10H ONE Stop: 08/10/19 00:46 Last Admin: 08/09/19 15:38 Dose: 100 mls/hr Documented by: Meropenem 1 gm/ Sodium (Chloride) 120 mls @ 240 mls/hr IV X1 ONE Stop: 08/09/19 18:14 Assessment/Plan All Active Problems (Last Reviewed 05/13/19 @ 14:[address] Douglas Bowman, DO) Bilateral pneumonia (Acute) Pyelonephritis (Acute) Acute on chronic renal failure (Acute) Acute respiratory insufficiency (Acute) Presence of coronary angioplasty implant and graft (Resolved ~08/29/12) S/P CABG (coronary artery bypass graft) (Resolved ~01/02/11) Aspiration pneumonia (Resolved) Cellulitis of right leg (Resolved) Diabetic ulcer of both lower extremities (Resolved) Ulcer of left lower extremity with fat layer exposed (Resolved) Impressions 1. Pyelonephritis secondary to Enterobacter cloaca high which is resistant to the Bactrim she was placed on on 08/04/2019 prior to results of the culture being obtained. 2. Bilateral pneumonia-suspect she was bacteremic from the urinary tract infection and this led to bilateral pneumonia or she could have aspirated which has happened in the past. Certainly this is a possibility since she has significant metabolic encephalopathy at this time. 3. Acute on chronic renal failure stage III secondary to dehydration 4. Suspected ischemic CVA versus toxic/metabolic encephalopathy 5. Chronic anticoagulation with Eliquis-not a candidate for TPA...... also not a candidate because last known well was unclear and was likely greater than 4 hours prior to presentation to the emergency department. 6. Acute respiratory insufficiency with hypoxia 7. Chronic medical conditions: Multiple sclerosis, peripheral vascular disease, diabetic ulcer on the right lower extremity, carcinoma of the lip, trigeminal neuralgia, history of DVT, chronic anticoagulation with Eliquis, obstructive sleep apnea, chronic venous insufficiency of both lower extremities, coronary artery disease with history of coronary angioplasty to the circumflex, proximal RA and distal RA in the past, GERD, dementia, restrictive airway disease, hypertension, diabetes mellitus type 2, diastolic congestive heart failure, iron deficiency anemia, history of CABG, paroxysmal atrial fibrillation, hyperlipidemia. These multiple conditions complicate care, management and prognosis. CODE STATUS: Discussed code status at length with family including the difference between FULL CODE, DNR CCA and DNR CC status. All questions were answered. An order for DNR CCA with no intubation was entered into the computer. A total of 20 minutes face to face time was devoted to advanced care planning. Admit to a monitored bed on PCU Initiate Stroke protocol CTA of the head and the neck-no evidence of significant stenosis or thrombosis. Neurology consult-obtained with [facility] tele-stroke Antiplatelet therapy with rectal aspirin until she is seen by speech therapy and approved for a diet ST, PT and OT consults N.p.o. until she is been seen by speech therapy Hydrate Lipid profile in the AM EKG - no ST elevation, NS ST and T wave changes only restart statin and PO meds when she is approved for a diet by the speech therapist. Meropenem 1 g IV every 12 hours, adjusted for renal failure but I expect the renal failure will improve with hydration - she has had Merrem in the past for aspiration PNA and tolerated without allergic reaction Blood cultures, urine culture have been sent MRSA nasal swab COVID is negative Hold Eliquis for now and start a heparin drip until she is able to take oral medications BP was quite high and she is not going to be able to take her antihypertensives by mouth. Will schedule Hydralazine and Lopressor but hold if the systolic is less than 150 or the HR is less than 60 Inpatient E&M: 72031 Init Hosp L3
[2019-08-09 18:11] LABS: Base Excess 6 mmol/L (-2 to +2); Bicarbonate 30.9 mmol/L (22-26); PO2 76 mmHG (75-100); SO2 95 % (95-99); Total Carbon Dioxide 32 mmol/L; pCO2 47.9 mmHg (35-45); pH 7.42 (7.35-7.45)
[2019-08-09 18:12] LABS: Blood Gas Specimen Type ART; O2 Delivery Device Nasal Can; SITE R BRACHIAL
[2019-08-09 18:13] LABS: Time Given 1538
--- NOTE | 2019-08-09 19:31 | NURSING ---
NIH difficult to assess as patient is mostly nonverbal at her baseline.
--- NOTE | 2019-08-09 19:39 | NURSING ---
Attempted to obtain medical information from [facility] without success. Primary RN aware of same.
[2019-08-09] MEDS: Albuterol 2.5 MG/3 ML VIAL.NEB. INHALATION ×2 (19:52→23:16)
[2019-08-09] MEDS: HEPARIN/D5w 25,000 UNITS 25,000 UNITS/250 ML IV.SOLN. 11 UNITS IV (19:53)
[2019-08-09 20:01] LABS: Bedside Glucose 105 mg/dL (70-110)
[2019-08-09 20:03] LABS: Partial Thromboplast Time 30.4 Seconds (24.1-36.2)
[2019-08-09 20:06] LABS: AST(SGOT) 14 U/L (15-37); Alanine Aminotransfer ALT/SGPT 15 U/L (13-56); Albumin, Serum 2.8 g/dL (3.2-5.0); Alkaline Phosphatase 111 U/L (45-117); Bilirubin, Direct 0.11 mg/dL (0.00-0.30); Globulin 3.4 g/dL (2.2-4.2); Magnesium 2.2 mg/dL (1.6-2.6); Protein, Total 6.2 g/dL (6.4-8.2); Thyroid Stim Hormone (TSH) 0.57 uIU/mL (0.358-3.74)
[2019-08-09 22:26] LABS: M R Staph aureus DNA By PCR Negative (Negative); Probe Check PASS; Specimen Processing Control PASS
[2019-08-09] MEDS: Nystatin Powder 15gm Bottle 1 APPLIC TOPICAL (22:40)
[2019-08-09] MEDS: Famotidine 200 MG/20 ML MDV 20 MG in 0.9% Normal Saline (Pres. free 8 ML 300 MG IV (22:41)
[2019-08-10] VITALS (23 sets, daily range): BP systolic 105–139; BP diastolic 37–72; PULSE 54–81; RESP 16–22; TEMP 36.5–37.1; O2SAT 94–99
[2019-08-10 00:11] LABS: Bedside Glucose 84 mg/dL (70-110)
--- NOTE | 2019-08-10 00:47 | NURSING ---
Call to [facility], spoke with nurse, completed Admission questions as best at nurse was able to recall. Nurse to fax over pt's medication list as well. CMast RN
[2019-08-10 02:07] LABS: Absolute Lymphocyte Count 2.31 X10^3/uL (0.83-4.51); Absolute Neutrophil Count 10.6 X10^3/uL (2.0-7.7); Basophil# 0.03 X10^3/uL; Basophil% 0.2 % (0-1); Eosinophil# 0.16 X10^3/uL; Eosinophils% 1.2 % (0-5); Hematocrit 38.7 % (37-47); Hemoglobin 12.3 g/dL (12.0-15.0); Lymphocyte # 2.31 X10^3/ul (4.0); Lymphocyte % 16.8 % (19-41); Mean Corp Hgb Conc 31.8 g/dL (32-36); Mean Corpuscular Hgb 30.1 pg (27.0-32.0); Mean Corpuscular Volume 94.9 fL (81-99); Mean Platelet Vol. 9.8 fl (6.2-12.0); Monocyte# 0.62 X10^3/uL; Monocyte% 4.5 % (0-10); NRBC Flagged by Analyzer 0 % (0-5); Neutrophil # 10.56 X10^3/uL (2.7-7.7); Neutrophil % 76.8 % (47-70); Platelet Count 206 K/mm3 (150-450); RBC Distribution Width CV 13.5 % (11.6-14.6); RBC Distribution Width SD 47.4 fl (35.1-43.9); Red Blood Count 4.08 M/mm3 (4.2-5.4); White Blood Count 13.8 K/mm3 (4.4-11.0)
[2019-08-10 02:24] LABS: ALB/GLOB Ratio 0.8 RATIO (0.9-2.4); AST(SGOT) 13 U/L (15-37); Alanine Aminotransfer ALT/SGPT 12 U/L (13-56); Albumin, Serum 2.7 g/dL (3.2-5.0); Alkaline Phosphatase 105 U/L (45-117); Anion Gap 5 (5-15); BUN 28 mg/dL (7-18); BUN/Creat Ratio 19.4 RATIO (10-20); Calcium,Total 8.7 mg/dL (8.5-10.1); Chloride 109 mmol/L (98-107); Cholesterol 176 mg/dL (200); Creatinine, Serum 1.44 mg/dL (0.55-1.02); EST Glomerular Filtration Rate 38 mL/min (>60); Est Glom Filt Rate - Afr Amer 46 mL/min (>60); Estimated Creatinine Clearance 30.37 ml/min; Globulin 3.2 g/dL (2.2-4.2); Glucose 87 mg/dL (74-106); High Density Lipoprotein 73 mg/dL; Magnesium 1.9 mg/dL (1.6-2.6); Phosphorus 3.7 mg/dL (2.5-4.9); Potassium 3.9 mmol/L (3.5-5.1); Protein, Total 5.9 g/dL (6.4-8.2); Sodium Level 145 mmol/L (136-145); Triglycerides 78 mg/dL; Very Low Density Lipoprotein 16 mg/dL (5-40)
--- NOTE | 2019-08-10 02:28 | NURSING ---
Critical lab result of 148 called to this RN. Heparin drip placed on hold x2 hours and decreased by 300 units per protocol.
[2019-08-10 05:06] LABS: Bedside Glucose 80 mg/dL (70-110)
[2019-08-10] MEDS: Dextrose 50%-Water 25 GM/50 ML DISP.SYRIN IV (05:10)
[2019-08-10] MEDS: 0.9% Normal Saline 1,000 ML 100 ML IV ×2 (05:10→17:57)
[2019-08-10] MEDS: Nystatin Powder 15gm Bottle 1 APPLIC TOPICAL ×3 (05:11→22:50)
[2019-08-10 05:36] LABS: Bedside Glucose 71 mg/dL (70-110)
[2019-08-10 05:36] LABS: Bedside Glucose 159 mg/dL (70-110)
[2019-08-10] MEDS: Albuterol 2.5 MG/3 ML VIAL.NEB. INHALATION ×2 (06:58→11:22)
[2019-08-10] MEDS: Famotidine 200 MG/20 ML MDV 20 MG in 0.9% Normal Saline (Pres. free 8 ML 300 MG IV (10:49)
[2019-08-10] MEDS: 0.9% Saline Lock 10 ML Syringe IV (10:53)
[2019-08-10 10:54] LABS: Partial Thromboplast Time 93.7 Seconds (24.1-36.2)
[2019-08-10] MEDS: Aspirin 300 MG Suppository RECTAL (11:09)
[2019-08-10 11:30] LABS: Bedside Glucose 146 mg/dL (70-110)
--- NOTE | 2019-08-10 12:06 | PN_ITS ---
<Rita Fajardo - Last Filed: 08/10/19 12:39> Patient Problems: Active and Suspected Problems (Last Reviewed 08/09/19 @ 19:[address] Luz Ramirez DO) Ischemic cerebrovascular accident (CVA) (Suspected) vs acute metabolic encephalopathy Bilateral pneumonia (Acute) maybe due to aspiration however, it could be bacteremic due to UTI Pyelonephritis (Acute) Due to Enterobacter cloaca complex-resistant to Bactrim which is the antibiotic the pt was placed on when diagnosed with UTI earlier in the week Acute on chronic renal failure (Acute) Acute respiratory insufficiency (Acute) Subjective: Patient seen and examined. Alert and oriented. No neurologic symptoms or focal deficits. Reports chills, denies fever. Denies abdominal pain or flank pain. Patient reports she has been depressed as she resides in SNF and has not been able to see her family due to COVID precautions. She also states she has not been able to walk recently. - Physical Exam Vitals/I&O's: Vital Signs Temp Pulse Resp BP Pulse Ox 98.2 F 60 20 H 139/72 H 94 08/10/19 09:15 08/10/19 11:22 08/10/19 11:22 08/10/19 11:18 08/10/19 09:15 Oxygen Flow Rate (L/min) 2 Oxygen Delivery Method Nasal Cannula Weight: 172 lb 13.478 oz Body Mass Index (BMI) 28.8 Finger Stick Blood Glucose 97 Intake and Output for Last 24 Hours 08/08/19 08/09/19 08/10/19 23:59 23:59 23:59 Intake Total 556.67 / 556.67 1673.87 / 1673.87 Output Total 750 / 750 400 / 400 Balance -193.33 / -193.33 1273.87 / 1273.87 General: Alert, Oriented x3, Cooperative HEENT: Atraumatic, PERRLA, EOMI, Normocephalic Neck: Supple, No JVD, Negative Carotid Bruits Lungs: Clear to auscultation, Diminished Cardiovascular: Regular rate, No murmurs Abdomen: Bowel Sounds Present, Soft, Non Tender, Non-Distended Extremities: No clubbing, No cyanosis, No edema Skin: No rashes, No breakdown, - - Right cabrera abrasion, dressing intact Musculoskeletal: No Tenderness to Palpation of Joints or Extremities Neurological: Cranial nerves II-XII grossly intact, Neuro grossly intact Psych/Mental Status: Flat Affect Microbiology Past 72 Hours 08/09/19 16:11 Urine, Catheterized Urine Culture - Preliminary Gram negative james Laboratory Results 08/09/19 14:59: POC Glucose 97 08/09/19 15:05: PT 14.4, INR 1.2, APTT 34.1 08/09/19 15:05: Sodium 141, Potassium 4.1, Chloride 105, Carbon Dioxide 31.0, Anion Gap 5, BUN 33 H, Creatinine 1.72 H, Estim Creat Clear Calc 25.43, Est GFR (MDRD) Af Amer 37 L, Est GFR (MDRD) Non-Af 31 L, BUN/Creatinine Ratio 19.2, Glucose 100, Calcium 9.2, Troponin I < 0.015 08/09/19 15:05: Lactic Acid 0.8 08/09/19 15:38: Specimen Type ART, Sample Site R BRACHIAL, pH 7.42, Bicarbonate Actual 30.9 H, POC Total CO2 32, Base Excess 6 H, O2 Saturation 95, ABG pCO2 47.9 H, ABG pO2 76, O2 Delivery Device Nasal Can, Liter Flow 4.0, Blood Gas Notified Whom ED MD, Blood Gas Notified Time 1538 08/09/19 15:40: COVID-19 (SLADE) Negative 08/09/19 15:45: WBC 22.8 H, RBC 4.46, Hgb 13.5, Hct 42.8, MCV 96.0, MCH 30.3, MCHC 31.5 L, RDW Std Deviation 48.2 H, RDW Coeff of Carissa 13.7, Plt Count 276, MPV 10.0, Immature Gran % (Auto) 0.700, Neut % (Auto) 83.5 H, Lymph % (Auto) 10.6 L, [place] % (Auto) 4.7, Eos % (Auto) 0.3, Baso % (Auto) 0.2, Absolute Neuts (auto) 19.0 H, Absolute Lymphs (auto) 2.41, Nucleated RBC % 0 08/09/19 16:11: Urine Color Yellow, Urine Clarity Cloudy, Urine pH 7.0, Ur Specific [place] 1.010, Urine Protein 30 H, Urine Glucose (UA) Normal, Urine Ketones Negative, Urine Occult Blood 50 H, Urine Nitrite Negative, Urine Bilirubin Negative, Urine Urobilinogen Normal, Ur Leukocyte Esterase 500 H, Urine RBC 0-5 SEEN, Urine WBC >100 SEEN, Ur Squamous Epith Cells 0-5 SEEN, Urine Bacteria 1+, Urine Mucus 0 SEEN 08/09/19 19:30: APTT 30.4 08/09/19 19:30: Magnesium 2.2, Total Bilirubin 0.30, Direct Bilirubin 0.11, AST 14 L, ALT 15, Alkaline Phosphatase 111, Troponin I < 0.015, Total Protein 6.2 L, Albumin 2.8 L, Globulin 3.4, TSH 0.57 08/09/19 19:38: POC Glucose 105 08/09/19 20:40: MRSA (PCR) Negative 08/09/19 21:25: Troponin I < 0.015 08/10/19 00:03: POC Glucose 84 08/10/19 02:00: WBC 13.8 H, RBC 4.08 L, Hgb 12.3, Hct 38.7, MCV 94.9, MCH 30.1, MCHC 31.8 L, RDW Std Deviation 47.4 H, RDW Coeff of Carissa 13.5, Plt Count 206, MPV 9.8, Immature Gran % (Auto) 0.500, Neut % (Auto) 76.8 H, Lymph % (Auto) 16.8 L, [place] % (Auto) 4.5, Eos % (Auto) 1.2, Baso % (Auto) 0.2, Absolute Neuts (auto) 10.6 H, Absolute Lymphs (auto) 2.31, Nucleated RBC % 0 08/10/19 02:00: Sodium 145, Potassium 3.9, Chloride 109 H, Carbon Dioxide 31.0, Anion Gap 5, BUN 28 H, Creatinine 1.44 H, Estim Creat Clear Calc 30.37, Est GFR (MDRD) Af Amer 46 L, Est GFR (MDRD) Non-Af 38 L, BUN/Creatinine Ratio 19.4, Glucose 87, Calcium 8.7, Phosphorus 3.7, Magnesium 1.9, Total Bilirubin 0.30, AST 13 L, ALT 12 L, Alkaline Phosphatase 105, Total Protein 5.9 L, Albumin 2.7 L , Globulin 3.2, Albumin/Globulin Ratio 0.8 L, Triglycerides 78, Cholesterol 176, LDL Cholesterol 87, VLDL Cholesterol 16, HDL Cholesterol 73 08/10/19 02:00: APTT 148.0 H* 08/10/19 02:37: POC Glucose 80 08/10/19 05:04: POC Glucose 71 08/10/19 05:31: POC Glucose 159 H 08/10/19 10:25: APTT 93.7 H* 08/10/19 11:17: POC Glucose 146 H Current Medications Acetaminophen (Tylenol) 650 mg RECTAL Q4H PRN PRN PRN Reason: Pain Score 1-10/Temp > 100.7 F Albuterol Sulfate (Ventolin Aerosols) 2.5 mg INHALATION Q2H PRN PRN PRN Reason: SOB/Wheezing Albuterol Sulfate (Ventolin Aerosols) 2.5 mg INHALATION Q4H.RT MELISSA Last Admin: 08/10/19 11:22 Dose: 2.5 mg Documented by: Aspirin (Aspirin) 300 mg RECTAL DAILY MELISSA Last Admin: 08/10/19 11:09 Dose: 300 mg Documented by: Dextrose (D50w Syringe) 0 gm IV X1 PRN; Protocol PRN Reason: Hypoglycemia Last Admin: 08/10/19 05:10 Dose: 12.5 gm Documented by: Glucagon () 1 mg IM .X1 PRN PRN Reason: Hypoglycemia Heparin Sodium (Porcine) (Heparin Na) 0 unit IV UD PRN; Protocol Hydralazine HCl (Apresoline Iv) 10 mg IV Q6 MELISSA Last Admin: 08/10/19 11:07 Dose: Not Given Documented by: Meropenem 1 gm/ Sodium (Chloride) 120 mls @ 33 mls/hr IV Q12 MELISSA Last Admin: 08/10/19 10:46 Dose: 33 mls/hr Documented by: Sodium Chloride () 1,000 mls @ 100 mls/hr IV .Q10H MELISSA Last Infusion: 08/10/19 11:18 Dose: 0 mls/hr Documented by: Heparin Sodium/Dextrose () 25,000 units in 250 mls @ 11 mls/hr IV .[id number] [facility]; Protocol Last Titration: 08/10/19 11:00 Dose: 0 units/hr, 0 mls/hr Documented by: Famotidine 20 mg/ Sodium (Chloride) 10 mls @ 300 mls/hr IV Q12 [facility] Last Infusion: 08/10/19 10:53 Dose: Infused Documented by: Insulin Human Lispro (Humalog Kwikpen (Bkc)) 0 unit SC Q6 [facility]; Protocol Last Admin: 08/10/19 11:17 Dose: Not Given Documented by: Lorazepam (Ativan) 1 mg IV X1 PRN PRN Reason: SEIZURES Metoprolol Tartrate (Lopressor (Beta Tommy)) 5 mg IV Q6 [facility] Last Admin: 08/10/19 11:18 Dose: Not Given Documented by: Nitroglycerin (Nitrostat) 0.4 mg SUBLINGUAL Q5M PRN PRN Reason: CARDIAC/CHEST PAIN Nystatin (Mycostatin Powder) 1 applic TOPICAL TID [facility]; Protocol Last Admin: 08/10/19 05:11 Dose: 1 applicatio Documented by: Ondansetron HCl (Zofran) 4 mg IV Q8H PRN PRN PRN Reason: NAUSEA/VOMITING Prochlorperazine Edisylate (Compazine Iv) 5 mg IV Q4H PRN PRN PRN Reason: Breakthrough Nausea/Vomiting Sodium Chloride () 10 - 40 ml IV UD PRN PRN Reason: SALINE FLUSH Last Admin: 08/10/19 10:53 Dose: 20 ml Documented by: Medical Necessity - Tobacco Use Smoking Status: Former smoker Assessment/Plan All Active Problems (Last Reviewed 08/09/19 @ 19:[address] Luz Ramirez, DO) Bilateral pneumonia (Acute) Pyelonephritis (Acute) Acute on chronic renal failure (Acute) Acute respiratory insufficiency (Acute) Presence of coronary angioplasty implant and graft (Resolved ~08/29/12) S/P CABG (coronary artery bypass graft) (Resolved ~01/02/11) Aspiration pneumonia (Resolved) Cellulitis of right leg (Resolved) Diabetic ulcer of both lower extremities (Resolved) Ulcer of left lower extremity with fat layer exposed (Resolved) 1. Acute metabolic encephalopathy, secondary to pyelonephritis, multifocal pneumonia, acute kidney injury-patient alert and oriented this morning. No neurologic symptoms or focal deficits. Patient does have a questionable left facial droop however this resolves when she smiles. Suspect this is chronic. Brain CT without acute process. Head and neck CTA shows mild to moderate stenosis both proximal ICAs, worse on the left. Moderate grade stenosis of both cavernous carotid arteries related to calcified plaque. No occlusions or acute thrombosis. Given patient improvement with treating underlying infection, will hold off on further MRI or neuro evaluation at this time. 2. Acute pyelonephritis secondary to Enterobacter cloacae-initially placed on Bactrim prior to culture results. Sensitivities show resistant to Bactrim. Continue IV meropenem. Repeat culture pending. 3. Multifocal pneumonia-chest x-ray admission shows bilateral opacities concerning for multifocal pneumonia. Mild leukocytosis. Afebrile. On IV meropenem as noted above. Albuterol and DuoNeb aerosols. Speech therapy consult given history of aspiration. Continue dietary modifications per speech therapy recommendations. Patient is on supplemental oxygen, 2 L nasal cannula. It appears she wears oxygen chronically at [facility]. Continue supplement oxygen to maintain O2 at or above 90%. 4. Acute kidney injury on chronic kidney disease stage III- NAYA resolved with fluids. Trend BMP. 5. Type 2 diabetes [id number] with sliding scale insulin. 6. Chronic right lower extremity wound-secondary to prior hematoma. Previously followed at wound center. Not acutely infected. Wound RN consult. 7. Multiple sclerosis- PT/OT. Continue Tegretol regimen. 8. CAD-continue Eliquis, statin 9. Paroxysmal atrial fibrillation-on amiodarone, Eliquis. 10. Hyperlipidemia-continue statin. 11. History of trigeminal neuralgia 12. LAURITA-noncompliant with Pap therapy. 13. Cognitive impairment-continue donepezil. DVT prophylaxis- Eliquis This patient was seen by KATHERINE Grey under the supervision of Dr. Hubbard. <Preston Hubbard - Last Filed: 08/10/19 14:15> Subjective: Seen and examined. Patient had chills in the morning and was feeling cold. Subjective fever. Patient complain of burning micturition for few days. Has chronic cough but denies any recent change in characteristic or sputum. Her COVID test was negative Objective: General: Alert, Oriented x3, Cooperative. HEENT: Atraumatic, PERRLA, EOMI, Normocephalic Oral: No Gingival or Mucosal Lesions/ Ulcerations Neck: Supple, No JVD, Negative Carotid Bruits Lungs: Air entry diminished in bilateral lung bases. No crepitation/rhonchi. No tachypnea. On 2 L of oxygen. Not in respiratory distress. Cardiovascular: Regular rate, Regular Rhythm, Normal S1, Normal S2, No murmurs Abdomen: Bowel Sounds Present, Soft, Non Tender, Non-Distended : No renal angle tenderness. No suprapubic tenderness. Extremities: Mild edema, Capillary Refill Less than 3 Seconds Skin: Bilateral leg superficial, chronic ulcer. Not decubitus ulcer. Musculoskeletal: No Tenderness to Palpation of Joints or Extremities Neurological: Cranial nerves II-XII grossly intact, Deep Tendon Reflexes 2+/4 and Symmetrical, Neuro grossly intact Psych/Mental Status: Normal Affect, Appropriate - Physical Exam Vitals/I&O's: Vital Signs Temp Pulse Resp BP Pulse Ox 98.2 F 60 20 H 139/72 H 94 08/10/19 09:15 08/10/19 11:22 08/10/19 11:22 08/10/19 11:18 08/10/19 09:15 Oxygen Flow Rate (L/min) 2 Oxygen Delivery Method Nasal Cannula Weight: 172 lb 13.478 oz Body Mass Index (BMI) 28.8 Finger Stick Blood Glucose 97 Intake and Output for Last 24 Hours 08/08/19 08/09/19 08/10/19 23:59 23:59 23:59 Intake Total 556.67 / 556.67 1913.87 / 1913.87 Output Total 750 / 750 675 / 675 Balance -193.33 / -193.33 1238.87 / 1238.87 Skin: - Microbiology Past 72 Hours 08/09/19 16:11 Urine, Catheterized Urine Culture - Preliminary Gram negative james Laboratory Results 08/09/19 14:59: POC Glucose 97 08/09/19 15:05: PT 14.4, INR 1.2, APTT 34.1 08/09/19 15:05: Sodium 141, Potassium 4.1, Chloride 105, Carbon Dioxide 31.0, Anion Gap 5, BUN 33 H, Creatinine 1.72 H, Estim Creat Clear Calc 25.43, Est GFR (MDRD) Af Amer 37 L, Est GFR (MDRD) Non-Af 31 L, BUN/Creatinine Ratio 19.2, Glucose 100, Calcium 9.2, Troponin I < 0.015 08/09/19 15:05: Lactic Acid 0.8 08/09/19 15:38: Specimen Type ART, Sample Site R BRACHIAL, pH 7.42, Bicarbonate Actual 30.9 H, POC Total CO2 32, Base Excess 6 H, O2 Saturation 95, ABG pCO2 47.9 H, ABG pO2 76, O2 Delivery Device Nasal Can, Liter Flow 4.0, Blood Gas Notified Whom ED MD, Blood Gas Notified Time 1539 08/09/19 15:40: COVID-19 ([facility]ADE) Negative 08/09/19 15:45: WBC 22.8 H, RBC 4.46, Hgb 13.5, Hct 42.8, MCV 96.0, MCH 30.3, MCHC 31.5 L, RDW Std Deviation 48.2 H, RDW Coeff of Carissa 13.7, Plt Count 276, MPV 10.0, Immature Gran % (Auto) 0.700, Neut % (Auto) 83.5 H, Lymph % (Auto) 10.6 L, [place] % (Auto) 4.7, Eos % (Auto) 0.3, Baso % (Auto) 0.2, Absolute Neuts (auto) 19.0 H, Absolute Lymphs (auto) 2.41, Nucleated RBC % 0 08/09/19 16:11: Urine Color Yellow, Urine Clarity Cloudy, Urine pH 7.0, Ur Specific [place] 1.010, Urine Protein 30 H, Urine Glucose (UA) Normal, Urine Ket ones Negative, Urine Occult Blood 50 H, Urine Nitrite Negative, Urine Bilirubin Negative, Urine Urobilinogen Normal, Ur Leukocyte Esterase 500 H, Urine RBC 0-5 SEEN, Urine WBC >100 SEEN, Ur Squamous Epith Cells 0-5 SEEN, Urine Bacteria 1+, Urine Mucus 0 SEEN 08/09/19 19:30: APTT 30.4 08/09/19 19:30: Magnesium 2.2, Total Bilirubin 0.30, Direct Bilirubin 0.11, AST 14 L, ALT 15, Alkaline Phosphatase 111, Troponin I < 0.015, Total Protein 6.2 L, Albumin 2.8 L, Globulin 3.4, TSH 0.57 08/09/19 19:38: POC Glucose 105 08/09/19 20:40: MRSA (PCR) Negative 08/09/19 21:25: Troponin I < 0.015 08/10/19 00:03: POC Glucose 84 08/10/19 02:00: WBC 13.8 H, RBC 4.08 L, Hgb 12.3, Hct 38.7, MCV 94.9, MCH 30.1, MCHC 31.8 L, RDW Std Deviation 47.4 H, RDW Coeff of Carissa 13.5, Plt Count 206, MPV 9.8, Immature Gran % (Auto) 0.500, Neut % (Auto) 76.8 H, Lymph % (Auto) 16.8 L, [place] % (Auto) 4.5, Eos % (Auto) 1.2, Baso % (Auto) 0.2, Absolute Neuts (auto) 10.6 H, Absolute Lymphs (auto) 2.31, Nucleated RBC % 0 08/10/19 02:00: Sodium 145, Potassium 3.9, Chloride 109 H, Carbon Dioxide 31.0, Anion Gap 5, BUN 28 H, Creatinine 1.44 H, Estim Creat Clear Calc 30.37, Est GFR (MDRD) Af Amer 46 L, Est GFR (MDRD) Non-Af 38 L, BUN/Creatinine Ratio 19.4, Glucose 87, Calcium 8.7, Phosphorus 3.7, Magnesium 1.9, Total Bilirubin 0.30, AST 13 L, ALT 12 L, Alkaline Phosphatase 105, Total Protein 5.9 L, Albumin 2.7 L , Globulin 3.2, Albumin/Globulin Ratio 0.8 L, Triglycerides 78, Cholesterol 176, LDL Cholesterol 87, VLDL Cholesterol 16, HDL Cholesterol 73 08/10/19 02:00: APTT 148.0 H* 08/10/19 02:37: POC Glucose 80 08/10/19 05:04: POC Glucose 71 08/10/19 05:31: POC Glucose 159 H 08/10/19 10:12: POC Glucose 102 08/10/19 10:25: APTT 93.7 H* 08/10/19 11:17: POC Glucose 146 H Current Medications Acetaminophen (Tylenol) 650 mg PO Q6H PRN PRN PRN Reason: Pain Score 1-10/Temp > 100.7 F Albuterol Sulfate (Ventolin Aerosols) 2.5 mg INHALATION Q2H PRN PRN PRN Reason: SOB/Wheezing Albuterol/Ipratropium (Duoneb) 3 ml INHALATION Q4HWA.RT MELISSA Amiodarone HCl (Cordarone) 200 mg PO DAILY@0800 MELISSA Amlodipine Besylate (Norvasc) 2.5 mg PO DAILY [facility] Apixaban (Eliquis) 2.5 mg PO BID [facility] Aspirin (Ecotrin) 81 mg PO DAILY@0800 [facility] Atorvastatin Calcium (Lipitor) 20 mg PO QHS [facility] Carbamazepine (Tegretol) 400 mg PO QHS [facility] Dextrose (D50w Syringe) 0 gm IV X1 PRN; Protocol PRN Reason: Hypoglycemia Last Admin: 08/10/19 05:10 Dose: 12.5 gm Documented by: Donepezil HCl (Aricept) 5 mg PO QHS [facility] Duloxetine HCl (Cymbalta) 60 mg PO DAILY [facility] Furosemide (Lasix) 40 mg PO DAILY [facility] Gabapentin (Neurontin) 300 mg PO BID [facility] Glucagon () 1 mg IM .X1 PRN PRN Reason: Hypoglycemia Hydralazine HCl (Apresoline) 50 mg PO TID [facility] Meropenem 1 gm/ Sodium (Chloride) 120 mls @ 33 mls/hr IV Q12 [facility] Last Admin: 08/10/19 10:46 Dose: 33 mls/hr Documented by: Sodium Chloride () 1,000 mls @ 100 mls/hr IV .Q10H [facility] Last Infusion: 08/10/19 11:18 Dose: 0 mls/hr Documented by: Insulin Human Lispro (Humalog Kwikpen (Bkc)) 0 unit SC ACHS [facility]; Protocol Lorazepam (Ativan) 1 mg IV X1 PRN PRN Reason: SEIZURES Magnesium Oxide (Mag-Ox 400) 400 mg PO BID [facility] Nitroglycerin (Nitrostat) 0.4 mg SUBLINGUAL Q5M PRN PRN Reason: CARDIAC/CHEST PAIN Non-Formulary Medication (Ferrous Sulfate) 325 mg PO BID [facility] Non-Formulary Medication (Omeprazole) 40 mg PO DAILY [facility] Nutritional Formula (Ej - Josephine Flavor) [facility] Nystatin (Mycostatin Powder) 1 applic TOPICAL TID [facility]; Protocol Last Admin: 08/10/19 05:11 Dose: 1 applicatio Documented by: Ondansetron HCl (Zofran) 4 mg IV Q8H PRN PRN PRN Reason: NAUSEA/VOMITING Prochlorperazine Edisylate (Compazine Iv) 5 mg IV Q4H PRN PRN PRN Reason: Breakthrough Nausea/Vomiting Sodium Chloride () 10 - 40 ml IV UD PRN PRN Reason: SALINE FLUSH Last Admin: 08/10/19 10:53 Dose: 20 ml Documented by: Assessment/Plan This patient was seen in conjunction with Rita AHN. I have independently interviewed and examined the patient and reviewed pertinent history, examination findings, laboratory and plan of management. I have reviewed the note and agree with the documented findings with the few additional points. In brief, patient is 74-year-old female with history of multiple comorbidities and recurrent admission, prison resident was admitted for acute encephalopathy and unresponsiveness episode in SNF, metabolic/infectious from pyelonephritis and multifocal pneumonia and acute kidney injury. Acute encephalopathy resolved. Patient in the morning shows no acute neurological focal deficit or confusion. CT brain no acute process. CTA head and neck shows mild to moderate stenosis both proximal ICAs worse on the left. [facility] neurology consult was done and was thought acute encephalopathy or possibly stroke but patient does not have new neurological deficit. MRI brain if patient gets confused or deterioration in the neurological status. Acute pyelonephritis, multifocal pneumonia: Patient is on broad-spectrum IV antibiotic meropenem. COVID-19 PCR negative. Chest x-ray individually reviewed shows bilateral right middle lobe, right lower lobe and left lingular and lower lobe opacity suggestive of multifocal pneumonia. Urine culture shows gram- negative james more more than 100,000 colonies. Incentive spirometry, chest physiotherapy, DuoNeb as needed. Acute kidney injury on CKD stage III: Monitor BMP. IV fluid discontinued Multiple comorbidities to type 2 diabetes mellitus, chronic bilateral lower leg superficial wound, multiple sclerosis, coronary artery disease, proximal A. fib on Eliquis, dyslipidemia and history of trigeminal neuralgia. Multiple comorbidities complicates the present care and expect difficult and delay recovery Patient also has obstructive sleep apnea, cognitive impairment. Total time of the visit including total time spent in counseling or coordination of care, (more than 50% of the total time, spent in obtaining medical information from nurses and other ancillary care providers), , review of labs and imaging is 30 minutes I have discussed my assessment with Rita AHN and orders have been reviewed. Inpatient E&M: [id number] [facility] Hosp L3
[2019-08-10 12:35] LABS: Bedside Glucose 102 mg/dL (70-110)
[2019-08-10] MEDS: Ipratropium/Albuterol Sulfate 3 ML AMPUL.NEB INHALATION ×2 (14:22→19:49)
[2019-08-10] MEDS: hydrALAZINE 50 MG Tablet PO ×2 (15:05→22:28)
[2019-08-10] MEDS: Insulin Lispro 100 UNIT/ML INSULN.PEN SC (16:22)
[2019-08-10] MEDS: Ferrous Sulfate 325 MG Tablet PO (16:29)
[2019-08-10 16:40] LABS: Bedside Glucose 167 mg/dL (70-110)
[2019-08-10] MEDS: Donepezil HCl 5 MG Tablet PO (22:27)
[2019-08-10] MEDS: APIXABAN 2.5 MG TABLET PO (22:27)
[2019-08-10] MEDS: Atorvastatin Calcium 20 MG Tablet PO (22:28)
[2019-08-10] MEDS: Magnesium Oxide 400 MG Tablet PO (22:29)
[2019-08-10] MEDS: carBAMazepine 200 MG Tablet 400 MG PO (22:30)
[2019-08-10 22:36] LABS: Bedside Glucose 126 mg/dL (70-110)
[2019-08-10] MEDS: Gabapentin 300 MG Capsule PO (22:37)
[2019-08-11] VITALS (14 sets, daily range): BP systolic 128–161; BP diastolic 40–75; PULSE 56–79; RESP 16–18; TEMP 36.4–37; O2SAT 94–97
[2019-08-11] MEDS: 0.9% Normal Saline 1,000 ML 100 ML IV ×3 (03:55→23:36)
[2019-08-11] MEDS: Ipratropium/Albuterol Sulfate 3 ML AMPUL.NEB INHALATION ×2 (06:52→14:46)
[2019-08-11 06:59] LABS: Hematocrit 33.5 % (37-47); Hemoglobin 10.4 g/dL (12.0-15.0); Mean Corpuscular Hgb 30.6 pg (27.0-32.0); Mean Corpuscular Volume 98.5 fL (81-99); Platelet Count 161 K/mm3 (150-450); RBC Distribution Width CV 13.5 % (11.6-14.6); RBC Distribution Width SD 48.4 fl (35.1-43.9); White Blood Count 7.8 K/mm3 (4.4-11.0)
[2019-08-11] MEDS: hydrALAZINE 50 MG Tablet PO ×3 (07:08→21:45)
[2019-08-11] MEDS: Nystatin Powder 15gm Bottle 1 APPLIC TOPICAL ×3 (07:12→21:36)
[2019-08-11 07:15] LABS: Bedside Glucose 105 mg/dL (70-110)
[2019-08-11 07:21] LABS: Anion Gap 3 (5-15); BUN 18 mg/dL (7-18); BUN/Creat Ratio 21.1 RATIO (10-20); Calcium,Total 8.3 mg/dL (8.5-10.1); Chloride 111 mmol/L (98-107); Creatinine, Serum 0.85 mg/dL (0.55-1.02); EST Glomerular Filtration Rate 69 mL/min (>60); Est Glom Filt Rate - Afr Amer 83 mL/min (>60); Estimated Creatinine Clearance 51.46 ml/min; Glucose 81 mg/dL (74-106); Potassium 3.6 mmol/L (3.5-5.1); Sodium Level 145 mmol/L (136-145)
[2019-08-11] MEDS: Amiodarone 200 MG Tablet PO (07:48)
[2019-08-11] MEDS: Aspirin E.C. 81 MG Tablet PO (07:48)
[2019-08-11] MEDS: Ferrous Sulfate 325 MG Tablet PO ×2 (07:48→16:17)
[2019-08-11] MEDS: amLODIPine 2.5 MG Tablet PO (09:42)
[2019-08-11] MEDS: Gabapentin 300 MG Capsule PO ×2 (09:42→21:45)
[2019-08-11] MEDS: DULoxetine Hcl 60 MG Capsule PO (09:42)
[2019-08-11] MEDS: APIXABAN 2.5 MG TABLET PO ×2 (09:42→21:45)
[2019-08-11] MEDS: Magnesium Oxide 400 MG Tablet PO ×2 (09:42→21:46)
[2019-08-11] MEDS: Pantoprazole Sodium 40 MG Tablet PO (09:42)
[2019-08-11] MEDS: Furosemide 40 MG Tablet PO (09:43)
--- NOTE | 2019-08-11 11:22 | CASEMGMT ---
PT/OT to re-eval as pt is stating that she should not be angeline lift at SNF and she would like to ambulate. Alexander CONTE CM
[2019-08-11 11:25] LABS: Bedside Glucose 156 mg/dL (70-110)
[2019-08-11] MEDS: Insulin Lispro 100 UNIT/ML INSULN.PEN SC ×2 (11:33→16:16)
--- NOTE | 2019-08-11 12:04 | NURSING ---
wound photo: right lower leg
--- NOTE | 2019-08-11 12:07 | NURSING ---
Casillas removed, pt tolerated well.
--- NOTE | 2019-08-11 13:36 | PCM.PROGNOTE ---
<Rita Fajardo - Last Filed: 08/11/19 13:42> Patient Problems: Active and Suspected Problems (Last Reviewed 08/09/19 @ 19:[address] Luz Ramirez DO) Ischemic cerebrovascular accident (CVA) (Suspected) vs acute metabolic encephalopathy Bilateral pneumonia (Acute) maybe due to aspiration however, it could be bacteremic due to UTI Pyelonephritis (Acute) Due to Enterobacter cloaca complex-resistant to Bactrim which is the antibiotic the pt was placed on when diagnosed with UTI earlier in the week Acute on chronic renal failure (Acute) Acute respiratory insufficiency (Acute) Subjective: Patient seen and examined. Denies further chills. Denies current symptoms. No acute events overnight. - Physical Exam Vitals/I&O's: Vital Signs Temp Pulse Resp BP Pulse Ox 97.5 F L 69 18 141/42 H 97 08/11/19 09:15 08/11/19 11:00 08/11/19 09:15 08/11/19 09:15 08/11/19 09:15 Oxygen Flow Rate (L/min) 2 Oxygen Delivery Method Nasal Cannula Weight: 178 lb 9.191 oz Body Mass Index (BMI) 28.8 Finger Stick Blood Glucose 97 Intake and Output for Last 24 Hours 08/09/19 08/10/19 08/11/19 23:59 23:59 23:59 Intake Total 556.67 / 556.67 2703.87 / 2703.87 1526.67 / 1526.67 Output Total 750 / 750 1025 / 1025 1100 / 1100 Balance -193.33 / -193.33 1678.87 / 1678.87 426.67 / 426.67 General: Alert, Oriented x3, Cooperative HEENT: Atraumatic, PERRLA, EOMI, Normocephalic Oral: Dry Mucosa Neck: Supple, No JVD, Negative Carotid Bruits Lungs: Clear to auscultation, Diminished Cardiovascular: Regular rate, No murmurs Abdomen: Bowel Sounds Present, Soft, Non Tender, Non-Distended Extremities: No clubbing, No cyanosis, No edema, Capillary Refill Less than 3 Seconds Skin: No rashes, No breakdown, - - Right cabrera chronic wound, dressing intact Musculoskeletal: No Tenderness to Palpation of Joints or Extremities Neurological: Cranial nerves II-XII grossly intact, Neuro grossly intact Psych/Mental Status: Flat Affect Microbiology Past 72 Hours 08/09/19 16:11 Urine, Catheterized Urine Culture - Final Enterobacter cloacae complex Laboratory Results 08/10/19 16:18: POC Glucose 167 H 08/10/19 22:22: POC Glucose 126 H 08/11/19 06:35: WBC 7.8, RBC 3.40 L, Hgb 10.4 L, Hct 33.5 L, MCV 98.5, MCH 30.6, MCHC 31.0 L, RDW Std Deviation 48.4 H, RDW Coeff of Carissa 13.5, Plt Count 161, MPV 10.0 08/11/19 06:35: Sodium 145, Potassium 3.6, Chloride 111 H, Carbon Dioxide 31.0, Anion Gap 3 L, BUN 18, Creatinine 0.85, Estim Creat Clear Calc 51.46, Est GFR (MDRD) Af Amer 83, Est GFR (MDRD) Non-Af 69, BUN/Creatinine Ratio 21.1 H, Glucose 81, Calcium 8.3 L 08/11/19 07:11: POC Glucose 105 08/11/19 11:18: POC Glucose 156 H Current Medications Acetaminophen (Tylenol) 650 mg PO Q6H PRN PRN PRN Reason: Pain Score 1-10/Temp > 100.7 F Albuterol Sulfate (Ventolin Aerosols) 2.5 mg INHALATION Q2H PRN PRN PRN Reason: SOB/Wheezing Albuterol/Ipratropium (Duoneb) 3 ml INHALATION Q4HWA.RT [facility] Last Admin: 08/11/19 11:15 Dose: Not Given Documented by: Amiodarone HCl (Cordarone) 200 mg PO DAILY@0800 [facility] Last Admin: 08/11/19 07:48 Dose: 200 mg Documented by: Amlodipine Besylate (Norvasc) 2.5 mg PO DAILY [facility] Last Admin: 08/11/19 09:42 Dose: 2.5 mg Documented by: Apixaban (Eliquis) 2.5 mg PO BID [facility] Last Admin: 08/11/19 09:42 Dose: 2.5 mg Documented by: Aspirin (Ecotrin) 81 mg PO DAILY@0800 [facility] Last Admin: 08/11/19 07:48 Dose: 81 mg Documented by: Atorvastatin Calcium (Lipitor) 20 mg PO QHS [facility] Last Admin: 08/10/19 22:28 Dose: 20 mg Documented by: Carbamazepine (Tegretol) 400 mg PO QHS [facility] Last Admin: 08/10/19 22:30 Dose: 400 mg Documented by: Dextrose (D50w Syringe) 0 gm IV X1 PRN; Protocol PRN Reason: Hypoglycemia Last Admin: 08/10/19 05:10 Dose: 12.5 gm Documented by: Donepezil HCl (Aricept) 5 mg PO QHS [facility] Last Admin: 08/10/19 22:27 Dose: 5 mg Documented by: Duloxetine HCl (Cymbalta) 60 mg PO DAILY [facility] Last Admin: 08/11/19 09:42 Dose: 60 mg Documented by: [facility]ous [facility] ([facility]) [facility] Last Admin: 08/11/19 07:48 Dose: 325 mg Documented by: Furosemide (Lasix) 40 mg PO DAILY [facility] Last Admin: 08/11/19 09:43 Dose: 40 mg Documented by: Gabapentin (Neurontin) 300 mg PO BID [facility] Last Admin: 08/11/19 09:42 Dose: 300 mg Documented by: Glucagon () 1 mg IM .X1 PRN PRN Reason: Hypoglycemia Hydralazine HCl (Apresoline) 50 mg PO TID [facility] Last Admin: 08/11/19 07:08 Dose: 50 mg Documented by: Meropenem 1 gm/ Sodium (Chloride) 120 mls @ 33 mls/hr IV Q12 [facility] Last Infusion: 08/11/19 13:33 Dose: Infused Documented by: Sodium Chloride () 1,000 mls @ 100 mls/hr IV .Q10H [facility] Last Admin: 08/11/19 03:55 Dose: 100 mls/hr Documented by: Insulin Human Lispro (Humalog Kwikpen (Bkc)) 0 unit SC [facility]; Protocol Last Admin: 08/11/19 11:33 Dose: 1 u Documented by: Lorazepam (Ativan) 1 mg IV X1 PRN PRN Reason: SEIZURES Magnesium Oxide (Mag-Ox 400) 400 mg PO BID [facility] Last Admin: 08/11/19 09:42 Dose: 400 mg Documented by: Nitroglycerin (Nitrostat) 0.4 mg SUBLINGUAL Q5M PRN PRN Reason: CARDIAC/CHEST PAIN Nutritional Formula (Ej - Bullard Flavor) [facility] Last Admin: 08/11/19 07:49 Dose: Not Given Documented by: Nystatin (Mycostatin Powder) 1 applic TOPICAL TID [facility]; Protocol Last Admin: 08/11/19 07:12 Dose: 1 applicatio Documented by: Ondansetron HCl (Zofran) 4 mg IV Q8H PRN PRN PRN Reason: NAUSEA/VOMITING Pantoprazole Sodium (Protonix) 40 mg PO DAILY [facility] Last Admin: 08/11/19 09:42 Dose: 40 mg Documented by: Prochlorperazine Edisylate (Compazine Iv) 5 mg IV Q4H PRN PRN PRN Reason: Breakthrough Nausea/Vomiting Sodium Chloride () 10 - 40 ml IV UD PRN PRN Reason: SALINE FLUSH Last Admin: 08/10/19 10:53 Dose: 20 ml Documented by: Medical Necessity - Tobacco Use Smoking Status: Former smoker Assessment/Plan All Active Problems (Last Reviewed 08/09/19 @ 19:[address] Luz Ramirez, DO) Bilateral pneumonia (Acute) Pyelonephritis (Acute) Acute on chronic renal failure (Acute) Acute respiratory insufficiency (Acute) Presence of coronary angioplasty implant and graft (Resolved ~08/29/12) S/P CABG (coronary artery bypass graft) (Resolved ~01/02/11) Aspiration pneumonia (Resolved) Cellulitis of right leg (Resolved) Diabetic ulcer of both lower extremities (Resolved) Ulcer of left lower extremity with fat layer exposed (Resolved) 1. Acute metabolic encephalopathy, secondary to pyelonephritis, multifocal pneumonia, acute kidney injury-patient now alert and oriented. No neurologic symptoms or focal deficits. Patient does have a questionable left facial droop however this resolves when she smiles. Suspect this is chronic. Brain CT without acute process. Head and neck CTA shows mild to moderate stenosis both proximal ICAs, worse on the left. Moderate grade stenosis of both cavernous carotid arteries related to calcified plaque. No occlusions or acute thrombosis. Given patient improvement with treating underlying infection, will hold off on further MRI or neuro evaluation at this time. Acute CVA ruled out. 2. Acute pyelonephritis secondary to Enterobacter cloacae-initially placed on Bactrim prior to culture results. Sensitivities show resistant to Bactrim. Continue IV meropenem. Repeat culture again growing Enterobacter. 3. Multifocal pneumonia-chest x-ray admission shows bilateral opacities concerning for multifocal pneumonia. Mild leukocytosis resolved. Afebrile. On IV meropenem as noted above. Albuterol and DuoNeb aerosols. Speech therapy consult given history of aspiration. Continue dietary modifications per speech therapy recommendations. Patient is on supplemental oxygen, 2 L nasal cannula. It appears she wears oxygen chronically at SNF. Continue supplement oxygen to maintain O2 at or above 90%. 4. Acute kidney injury on chronic kidney disease stage III- NAYA resolved with fluids. Trend BMP. 5. Type 2 diabetes iclhofad-Vlhj-Mguqu with sliding scale insulin. 6. Chronic right lower extremity wound-secondary to prior hematoma. Previously followed at wound center. Not acutely infected. Wound RN consult. 7. Multiple sclerosis- PT/OT. Continue Tegretol regimen. 8. CAD-continue Eliquis, statin 9. Paroxysmal atrial fibrillation-on amiodarone, Eliquis. 10. Hyperlipidemia-continue statin. 11. History of trigeminal neuralgia 12. LAURITA-noncompliant with Pap therapy. 13. Cognitive impairment-continue donepezil. 14. Mild protein calorie malnutrition-as evidenced by weight loss, decreased oral intake. Dietitian consult. DVT prophylaxis- Eliquis This patient was seen by KATHERINE Grey under the supervision of Dr. Cortes. <Wilma Cortes - Last Filed: 08/11/19 14:43> Subjective: The following is a reflection of my Independent history and exam Pt states that she is terrible because she is peeing and pooping all over. No current stool in bed and not wet. Pt admits she has incontinence issues at baseline. Does not like the facility she is at as she states that she is not getting up and they won't let her walk and work with rehab. She would like to do more. - Physical Exam Vitals/I&O's: Vital Signs Temp Pulse Resp BP Pulse Ox 97.5 F L 69 18 141/42 H 97 08/11/19 09:15 08/11/19 13:41 08/11/19 09:15 08/11/19 13:41 08/11/19 09:15 Oxygen Flow Rate (L/min) 2 Oxygen Delivery Method Nasal Cannula Weight: 81 kg Body Mass Index (BMI) 28.8 Finger Stick Blood Glucose 97 Intake and Output for Last 24 Hours 08/09/19 08/10/19 08/11/19 23:59 23:59 23:59 Intake Total 556.67 / 556.67 2703.87 / 2703.87 2500.00 / 2500.00 Output Total 750 / 750 1025 / 1025 1100 / 1100 Balance -193.33 / -193.33 1678.87 / 1678.87 1400.00 / 1400.00 General: Alert, Cooperative, No apparent distress, Well developed, Well nourished, - HEENT: Atraumatic, PERRLA, EOMI, Normocephalic, EAC Clear Oral: Moist Mucosa, Dry Mucosa, - - upper dentures in place Neck: Supple, No JVD, Negative Hepatojugular Reflux, Trachea Midline, Thyroid Normal Size and Texture Lungs: Clear to auscultation, No rhonchi, No wheeze, No rales, Diminished - diffusely Cardiovascular: Regular rate, Regular Rhythm, Normal S1, Normal S2, No murmurs, No Ectopic Activity, No rub noted, No Gallop Abdomen: Bowel Sounds Present, Soft, Non Tender, Non-Distended, Obese, No hernias noted Extremities: No clubbing, No cyanosis, No edema, Capillary Refill Less than 3 Seconds, Peripheral Pulses Normal Skin: No rashes, No breakdown Musculoskeletal: No Tenderness to Palpation of Joints or Extremities, No Muscle Wasting, Arthritic Changes Lymphatic: No Cervical, Supraclavicular, or Inguinal Adenopathy Neurological: Cranial nerves II-XII grossly intact, Neuro grossly intact, Muscle tone normal, Sensory exam intact to light touch and pain, Coordination normal Psych/Mental Status: Normal Affect, Appropriate, - - talkative, Alert and oriented to time, place, person, mood and affect Microbiology Past 72 Hours 08/09/19 16:11 Urine, Catheterized Urine Culture - Final Enterobacter cloacae complex Laboratory Results 08/10/19 16:18: POC Glucose 167 H 08/10/19 22:22: POC Glucose 126 H 08/11/19 06:35: WBC 7.8, RBC 3.40 L, Hgb 10.4 L, Hct 33.5 L, MCV 98.5, MCH 30.6, MCHC 31.0 L, RDW Std Deviation 48.4 H, RDW Coeff of Carissa 13.5, Plt Count 161, MPV 10.0 08/11/19 06:35: Sodium 145, Potassium 3.6, Chloride 111 H, Carbon Dioxide 31.0, Anion Gap 3 L, BUN 18, Creatinine 0.85, Estim Creat Clear Calc 51.46, Est GFR (MDRD) Af Amer 83, Est GFR (MDRD) Non-Af 69, BUN/Creatinine Ratio 21.1 H, Glucose 81, Calcium 8.3 L 08/11/19 07:11: POC Glucose 105 08/11/19 11:18: POC Glucose 156 H Current Medications Acetaminophen (Tylenol) 650 mg PO Q6H PRN PRN PRN Reason: Pain Score 1-10/Temp > 100.7 F Albuterol Sulfate (Ventolin Aerosols) 2.5 mg INHALATION Q2H PRN PRN PRN Reason: SOB/Wheezing Albuterol/Ipratropium (Duoneb) 3 ml INHALATION Q4HWA.RT [facility] Last Admin: 08/11/19 11:15 Dose: Not Given Documented by: Amiodarone HCl (Cordarone) 200 mg PO DAILY@0800 [facility] Last Admin: 08/11/19 07:48 Dose: 200 mg Documented by: Amlodipine Besylate (Norvasc) 2.5 mg PO DAILY [facility] Last Admin: 08/11/19 09:42 Dose: 2.5 mg Documented by: Apixaban (Eliquis) 2.5 mg PO BID [facility] Last Admin: 08/11/19 09:42 Dose: 2.5 mg Documented by: Aspirin (Ecotrin) 81 mg PO DAILY@0800 [facility] Last Admin: 08/11/19 07:48 Dose: 81 mg Documented by: Atorvastatin Calcium (Lipitor) 20 mg PO QHS [facility] Last Admin: 08/10/19 22:28 Dose: 20 mg Documented by: Carbamazepine (Tegretol) 400 mg PO QHS [facility] Last Admin: 08/10/19 22:30 Dose: 400 mg Documented by: Dextrose (D50w Syringe) 0 gm IV X1 PRN; Protocol PRN Reason: Hypoglycemia Last Admin: 08/10/19 05:10 Dose: 12.5 gm Documented by: Donepezil HCl (Aricept) 5 mg PO QHS [facility] Last Admin: 08/10/19 22:27 Dose: 5 mg Documented by: Duloxetine HCl (Cymbalta) 60 mg PO DAILY [facility] Last Admin: 08/11/19 09:42 Dose: 60 mg Documented by: Ferrous Sulfate ([facility]ous Sulfate) [facility] Last Admin: 08/11/19 07:48 Dose: 325 mg Documented by: Furosemide (Lasix) 40 mg PO DAILY [facility] Last Admin: 08/11/19 09:43 Dose: 40 mg Documented by: Gabapentin (Neurontin) 300 mg PO BID [facility] Last Admin: 08/11/19 09:42 Dose: 300 mg Documented by: Glucagon () 1 mg IM .X1 PRN PRN Reason: Hypoglycemia Hydralazine HCl (Apresoline) 50 mg PO TID [facility] Last Admin: 08/11/19 13:41 Dose: 50 mg Documented by: Meropenem 1 gm/ Sodium (Chloride) 120 mls @ 33 mls/hr IV Q12 [facility] Last Infusion: 08/11/19 13:33 Dose: Infused Documented by: Sodium Chloride () 1,000 mls @ 100 mls/hr IV .Q10H [facility] Last Admin: 08/11/19 13:39 Dose: 100 mls/hr Documented by: Insulin Human Lispro (Humalog Kwikpen (Bkc)) 0 unit SC [facility]; Protocol Last Admin: 08/11/19 11:33 Dose: 1 u Documented by: Lorazepam (Ativan) 1 mg IV X1 PRN PRN Reason: SEIZURES Magnesium Oxide (Mag-Ox 400) 400 mg PO BID [facility] Last Admin: 08/11/19 09:42 Dose: 400 mg Documented by: Nitroglycerin (Nitrostat) 0.4 mg SUBLINGUAL Q5M PRN PRN Reason: CARDIAC/CHEST PAIN Nutritional Formula (Ej - Bullard Flavor) [facility] Last Admin: 08/11/19 07:49 Dose: Not Given Documented by: Nystatin (Mycostatin Powder) 1 applic TOPICAL TID [facility]; Protocol Last Admin: 08/11/19 13:39 Dose: 1 applicatio Documented by: Ondansetron HCl (Zofran) 4 mg IV Q8H PRN PRN PRN Reason: NAUSEA/VOMITING Pantoprazole Sodium (Protonix) 40 mg PO DAILY [facility] Last Admin: 08/11/19 09:42 Dose: 40 mg Documented by: Prochlorperazine Edisylate (Compazine Iv) 5 mg IV Q4H PRN PRN PRN Reason: Breakthrough Nausea/Vomiting Sodium Chloride () 10 - 40 ml IV UD PRN PRN Reason: SALINE FLUSH Last Admin: 08/10/19 10:53 Dose: 20 ml Documented by: Assessment/Plan ASSESSMENT Multifocal PNA NAYA Enterobacter UTI Metabolic Encephalopathy-->now resolved Anemia-mild normocytic DM-2 CAD PAF HTN HPL CKD stage 3 Mild Cognitive Impairment At Risk for Malnutrition MS [id number] PLAN -now on RA -continue ABX for a total of 7-10 days -will switch to Levaquin in am as long as she remains stable and blood cx neg (still pending) -renal fxn at baseline -monitor hgb--> am CBC -am BMP -continue carb control diet--> BGT controlled -VSS Inpatient E&M: 12738 Subs Hosp L3
[2019-08-11 16:31] LABS: Bedside Glucose 155 mg/dL (70-110)
--- NOTE | 2019-08-11 16:33 | CASEMGMT ---
Social Work Pt is currently a resident at [facility]. Per staff pt not wanting to return there. SW met with pt in room who states she would like to stay at [facility] for therapy. With pt permission phone call to [facility]. Best states that pt is a residential resident at [facility] on Medicaid benefit and plans are for pt to return there upon d/c. JAGDEEP met with pt and informed that [facility] does not accept Medicaid and that [facility] would like her to return to the [facility]. Pt is unhappy but agreeable with this discharge plan. Clinical update faxed to the [facility]. VM left with Quiana at [facility] inquiring if pt will return under skilled benefit and need precert or if pt will return to [facility] care. Will await return call. Plan: [facility], possibly pending precert VICENTE Ochoa
--- NOTE | 2019-08-11 16:38 | CASEMGMT ---
SW spoke with [facility] who states pt does have a health care POA and a LW which have already been provided to [facility] multiple times. HCPOA pulled from [facility] and placed on pt chart. Living will not in [facility]. VICENTE Ochoa
[2019-08-11] MEDS: carBAMazepine 200 MG Tablet 400 MG PO (21:46)
[2019-08-11] MEDS: Donepezil HCl 5 MG Tablet PO (21:46)
[2019-08-11] MEDS: Atorvastatin Calcium 20 MG Tablet PO (21:47)
--- NOTE | 2019-08-11 21:53 | NURSING ---
Patient is refusing to have her blood sugar checked at this time.
[2019-08-12] VITALS (8 sets, daily range): BP systolic 157–163; BP diastolic 59–81; PULSE 57–75; RESP 18; TEMP 36.7–36.8; O2SAT 91–94
[2019-08-12] MEDS: hydrALAZINE 50 MG Tablet PO (06:31)
[2019-08-12] MEDS: Nystatin Powder 15gm Bottle 1 APPLIC TOPICAL (06:33)
[2019-08-12 07:10] LABS: Bedside Glucose 92 mg/dL (70-110)
[2019-08-12] MEDS: 0.9% Normal Saline 1,000 ML 100 ML IV (09:36)
[2019-08-12] MEDS: Gabapentin 300 MG Capsule PO (09:40)
[2019-08-12] MEDS: Ferrous Sulfate 325 MG Tablet PO (09:40)
[2019-08-12] MEDS: amLODIPine 2.5 MG Tablet PO (09:40)
[2019-08-12] MEDS: DULoxetine Hcl 60 MG Capsule PO (09:40)
[2019-08-12] MEDS: Magnesium Oxide 400 MG Tablet PO (09:40)
[2019-08-12] MEDS: Furosemide 40 MG Tablet PO (09:40)
[2019-08-12] MEDS: Amiodarone 200 MG Tablet PO (09:40)
[2019-08-12] MEDS: Aspirin E.C. 81 MG Tablet PO (09:40)
[2019-08-12] MEDS: APIXABAN 2.5 MG TABLET PO (09:40)
[2019-08-12] MEDS: Pantoprazole Sodium 40 MG Tablet PO (09:40)
--- NOTE | 2019-08-12 10:33 | CASEMGMT ---
JAGDEEP spoke with Quiana [facility] [place] and let her know patient may return today. Mariaa COSTELLO MSW
--- NOTE | 2019-08-12 11:25 | TREXTCA.CO_ITS ---
- Diet 08/10/19 09:48 Diet: Regular Diet Food consistency:: Mechanical Soft/Ground Liquid Consistency:: Regular/Thin Is pt able to select menu?: No Diet Comments: Supervision/assist as needed, single bite/sip, straws ok - Routine Orders/Code Status Enema Type: Fleetz Enema Frequency: Daily PRN Suppository Type: Dulcolax 10mg Suppository Frequency: Daily PRN O2 Liters per Minute: 2 O2 Frequency: PRN Keep PO Greater than or Equal to (%): 90 Routine Lab Work: CBC, BMP, - - Q Week [facility] - No intubation - Wound(s) R Cabrera Wound Type: nonhealing wound Dressing Change: Aquacel - Suggestions for Active Care Change Position every (hours): 2 Times a day to sit in chair: 3 - Therapies Physical Therapy: Eval and Treat Occupational Therapy: Eval and Treat Speech Therapy: Eval and Treat - Problem/Diagnosis (1) Acute on chronic renal failure Status: Acute Current Visit: Yes (2) Multiple sclerosis Status: Chronic Current Visit: No (3) Trigeminal neuralgia Status: Chronic Current Visit: No (4) History of DVT (deep vein thrombosis) Status: Chronic Current Visit: No (5) LAURITA (obstructive sleep apnea) Status: Chronic Current Visit: No (6) GERD (gastroesophageal reflux disease) Status: Chronic Current Visit: No (7) Dementia Status: Chronic Current Visit: No (8) Essential hypertension Status: Chronic Current Visit: No (9) Type 2 diabetes mellitus Status: Chronic Current Visit: No (10) Diastolic CHF Status: Chronic Current Visit: No (11) S/P CABG (coronary artery bypass graft) Status: Chronic Comment: CABG x2 ARREGUIN tp LAD and SVG to OM2 01/02/11 Current Visit: No (12) Paroxysmal atrial fibrillation Status: Chronic Current Visit: No (13) Hyperlipidemia Status: Chronic Current Visit: No (14) UTI (urinary tract infection) Status: Acute Current Visit: Yes - Allergies/Procedures Done in Hospital Allergies/Adverse Reactions: Allergies codeine Allergy (Unknown, Verified 08/04/19 10:45) Hives cefazolin Allergy (Verified 08/04/19 10:45) Rash ciprofloxacin [From Cipro] Allergy (Verified 08/04/19 10:45) Hives ciprofloxacin HCl [From Cipro] Allergy (Verified 08/04/19 10:45) Hives Latex, Natural Rubber Allergy (Verified 08/04/19 10:45) Rash Penicillins [PCN] Allergy (Verified 08/04/19 10:45) Hives vancomycin Allergy (Verified 08/04/19 10:45) Angioedema adhesive tape Adverse Reaction (Verified 08/04/19 10:45) Rash Procedures: None - Type of Care/Length of Stay Estimated LOS: More Than 30 Days Type of Care Needed: Skilled Rehab Potential: Fair Prognosis: Fair - Additional Orders/Day of Discharge Additional Orders: Dressing change orders: Cleanse wound to right cabrera with soap and water daily. Pat dry. Place Aquacel and cover with dry dressing. Change daily and as needed. Patient was able to get out of bed and ambulated short distance with 2 person assist. Patient should be up to chair daily and avoid use of Leti lift if staff is available for two-person assist. H&P will serve as current which was dated: 08/09/19 Day of Discharge: 08/12/19 - Dietary and Speech Recommendations Dietitian Recommendations/Changes: As pt medically able rec JACINTO Regular w/ texture modifications per [employer]. Rec ONS Glucerna shake 120 ml 4x/day at [facility] and magic cup/ensure pudding w/ meals when pt diet available as pt w/ s/s of malnutrition. - Follow Up Care Primary Care Physician: Octaviano Franco Chi, MD [Primary Care Provider] - Please follow up with your Primary Care Physician in: 1 Week
--- NOTE | 2019-08-12 11:31 | PCM.DC.SUM ---
<Rita Fajardo - Last Filed: 08/12/19 11:38> Discharge Date and Diagnosis Date of Admission: 08/09/19 Date of Discharge: 08/12/19 - Primary Discharge Diagnosis Acute Problems: Active Problems (Last Reviewed 08/09/19 @ 19:[address] Luz Ramirez DO) 1. Acute metabolic encephalopathy, secondary to UTI, suspected pneumonia, acute kidney injury 2. Acute UTI secondary to Enterobacter cloacae 3. Suspected Multifocal pneumonia 4. Acute kidney injury on chronic kidney disease stage III 5. Type 2 diabetes mellitus 6. Chronic right lower extremity wound-secondary to prior hematoma. 7. Multiple sclerosis 8. CAD 9. Paroxysmal atrial fibrillation 10. Hyperlipidemia 11. History of trigeminal neuralgia 12. LAURITA 13. Cognitive impairment 14. Mild protein calorie malnutrition - Secondary Discharge Diagnosis Chronic Problems: Chronic Problems (Last Reviewed 08/09/19 @ 19:[address] Luz Ramirez DO) General weakness (Chronic) Debility (Chronic) Peripheral vascular disease (Chronic) Multiple sclerosis (Chronic) Carcinoma of lip (Chronic) Trigeminal neuralgia (Chronic) History of DVT (deep vein thrombosis) (Chronic) LAURITA (obstructive sleep apnea) (Chronic) Venous insufficiency of both lower extremities (Chronic) Venous insufficiency of both lower extremities (Chronic) Chronic GI bleeding (Chronic) GERD (gastroesophageal reflux disease) (Chronic) Dementia (Chronic) Restrictive airway disease (Chronic) LAURITA (obstructive sleep apnea) (Chronic) Essential hypertension (Chronic) Type 2 diabetes mellitus (Chronic) Diastolic CHF (Chronic) Iron deficiency anemia (Chronic) etiology unknown Ulcer of right lower extremity with fat layer exposed (Chronic) Presence of stent in coronary artery (Chronic ~08/29/12) PTCA/stent to CX; PTCA/Stent PTCA/stent to prox RCA 05/06; PTCA/LILY in mid to distal RCA 08/29/12 Atherosclerotic heart disease of [place] coronary artery without angina pectoris (Chronic) PTCA/stent to CX; PTCA/Stent PTCA/stent to prox RCA 05/06; PTCA/LILY in mid to distal RCA 08/29/12; CABG x2 ARREGUIN tp LAD and SVG to OM2 01/02/11 S/P CABG (coronary artery bypass graft) (Chronic ~01/02/11) CABG x2 ARREGUIN tp LAD and SVG to OM2 11/28/11 Paroxysmal atrial fibrillation (Chronic) Hyperlipidemia (Chronic) Hospital Course and Treatment Imaging Results: Diagnostic Data Brain CT 08/09/19 14:46 IMPRESSION: Chronic involutional changes of the brain. Small vessel ischemia. Minimal opacification of the left mastoid air cells consistent with a history of mastoiditis. N.B. : The above information has been verbally conveyed by Mona Irwin MD to Huber Paniagua MD, on 08/09/2019 15:03:26 (ET). Electronically Signed: Mona Irwin MD at 15:05 EDT Tel , Service support , ADDENDUM: 08/09/19 1512 IMPRESSION: Chronic involutional changes of the brain. Small vessel ischemia. Minimal opacification of the left mastoid air cells consistent with a history of mastoiditis. N.B. : The above information has been verbally conveyed by Mona Irwin MD to Huber Paniagua MD, on 08/09/2019 15:03:26 (ET). Electronically Signed: Mona Irwin MD at 15:05 EDT Tel , Service support , Head/Neck CTA 08/09/19 15:26 IMPRESSION: [id number] grade stenosis of both proximal ICAs worse on the left. Moderate grade stenosis of both cavernous carotid arteries related to calcified plaque. No definite occlusions or acute thrombosis. Electronically Signed: Nikolas Savage MD at 16:22 EDT , Service support , Chest X-Ray 08/09/19 15:40 IMPRESSION: New bilateral opacities concerning for multifocal pneumonia. Electronically Signed: Mona Irwin MD at 17:11 EDT Tel , Service support , Consultations 08/10/19 12:32 Consult: Onc/Wound/sill worker Routine Comment: Reason for Consult:: Chronic RLE wound, hx MRSA Operations: None Procedures: None Summary of Care Provided: The patient is a 74 year old F admitted 08/09/2019 due to unresponsiveness at [facility]. 1. Acute metabolic encephalopathy, secondary to UTI, multifocal pneumonia, acute kidney injury-patient now alert and oriented. No neurologic symptoms or focal deficits. Patient does have a questionable left facial droop however this resolves when she smiles. Suspect this is chronic. Brain CT without acute process. Head and neck CTA shows mild to moderate stenosis both proximal ICAs, worse on the left. Moderate grade stenosis of both cavernous carotid arteries related to calcified plaque. No occlusions or acute thrombosis. Given patient improvement with treating underlying infection, will hold off on further MRI or neuro evaluation at this time. Acute CVA ruled out. 2. Acute UTI secondary to Enterobacter cloacae-initially placed on Bactrim prior to culture results. Sensitivities show resistant to Bactrim. IV meropenem during admission. Repeat culture again growing Enterobacter. Discharged on oral Levaquin to complete 7-day course of antibiotics. Pyelonephritis ruled out. 3. Affected multifocal pneumonia-chest x-ray admission shows bilateral opacities concerning for multifocal pneumonia. Mild leukocytosis resolved. Afebrile. On IV meropenem during admission as noted above. Speech therapy consult given history of aspiration. Continue dietary modifications per speech therapy recommendations. Patient on supplemental oxygen intermittently which she also uses at [facility]. Continue supplement oxygen to maintain O2 at or above 90%. 4. Acute kidney injury on chronic kidney disease stage III- NAYA resolved with fluids. 5. Type 2 diabetes [id number] with sliding scale insulin. Prior hemoglobin A1c 5.4% December 2018. Diet controlled at [facility]. 6. Chronic right lower extremity wound-secondary to prior hematoma. Previously followed at wound center. Not acutely infected. Wound RN consult. Continue with dressing changes with Aquacel as ordered on transfer to SNF. 7. Multiple sclerosis- PT/OT. Continue Tegretol regimen. 8. CAD-continue Eliquis, statin 9. Paroxysmal atrial fibrillation-on amiodarone, Eliquis. 10. Hyperlipidemia-continue statin. 11. History of trigeminal neuralgia 12. LAURITA-noncompliant with Pap therapy. 13. Cognitive impairment-continue donepezil. 14. Mild protein calorie malnutrition-as evidenced by weight loss, decreased oral intake. Dietitian consulted during admission. General: Alert, Oriented x3, Cooperative HEENT: Atraumatic, PERRLA, EOMI, Normocephalic Oral: Dry Mucosa Neck: Supple, No JVD, Negative Carotid Bruits Lungs: Clear to auscultation, Diminished Cardiovascular: Regular rate, No murmurs Abdomen: Bowel Sounds Present, Soft, Non Tender, Non-Distended Extremities: No clubbing, No cyanosis, No edema, Capillary Refill Less than 3 Seconds Skin: No rashes, No breakdown, - - Right cabrera chronic wound, dressing intact Musculoskeletal: No Tenderness to Palpation of Joints or Extremities Neurological: Cranial nerves II-XII grossly intact, Neuro grossly intact Psych/Mental Status: Flat Affect Patient seen and examined prior to discharge. Physical assessment as noted above. Patient is stable for discharge with follow up recommendations as noted above. This patient was seen by KATHERINE Grey under the supervision of Dr. Cortes. - Physical Exam Vitals/I&O's: Vital Signs Temp Pulse Resp BP Pulse Ox 98.2 F 72 18 157/59 H 93 08/12/19 09:15 08/12/19 09:15 08/12/19 09:15 08/12/19 09:15 08/12/19 09:15 Oxygen Flow Rate (L/min) 2 Oxygen Delivery Method Room Air Weight: 179 lb 7.3 oz Body Mass Index (BMI) 28.8 Finger Stick Blood Glucose 97 Intake and Output for Last 24 Hours 08/10/19 08/11/19 08/12/19 23:59 23:59 23:59 Intake Total 2703.87 / 2703.87 3930.00 / 3930.00 1460 / 1460 Output Total 1025 / 1025 1100 / 1100 225 / 225 Balance 1678.87 / 1678.87 2830.00 / 2830.00 1235 / 1235 Microbiology Past 72 Hours 08/09/19 19:30 Blood Culture (Wb) #2 - Right Wrist Blood Culture - Preliminary No growth in 48 hours. 08/09/19 15:05 Blood Culture (Wb) - Arm Left Blood Culture - Preliminary No growth in 48 hours. 08/09/19 15:25 Blood Culture (Wb) - Arm Right Blood Culture - Preliminary No growth in 48 hours. 08/09/19 16:11 Urine, Catheterized Urine Culture - Final Enterobacter cloacae complex Laboratory Results 08/11/19 16:13: POC Glucose 155 H 08/12/19 06:36: POC Glucose 92 Current Medications Acetaminophen (Tylenol) 650 mg PO Q6H PRN PRN PRN Reason: Pain Score 1-10/Temp > 100.7 F Albuterol Sulfate (Ventolin Aerosols) 2.5 mg INHALATION Q2H PRN PRN PRN Reason: SOB/Wheezing Albuterol/Ipratropium (Duoneb) 3 ml INHALATION Q4HWA.RT [facility] Last Admin: 08/12/19 10:58 Dose: Not Given Documented by: Amiodarone HCl (Cordarone) 200 mg PO DAILY@0800 [facility] Last Admin: 08/12/19 09:40 Dose: 200 mg Documented by: Amlodipine Besylate (Norvasc) 2.5 mg PO DAILY [facility] Last Admin: 08/12/19 09:40 Dose: 2.5 mg Documented by: Apixaban (Eliquis) 2.5 mg PO BID [facility] Last Admin: 08/12/19 09:40 Dose: 2.5 mg Documented by: Aspirin (Ecotrin) 81 mg PO DAILY@0800 [facility] Last Admin: 08/12/19 09:40 Dose: 81 mg Documented by: Atorvastatin Calcium (Lipitor) 20 mg PO QHS [facility] Last Admin: 08/11/19 21:47 Dose: 20 mg Documented by: Carbamazepine (Tegretol) 400 mg PO QHS [facility] Last Admin: 08/11/19 21:46 Dose: 400 mg Documented by: Dextrose (D50w Syringe) 0 gm IV X1 PRN; Protocol PRN Reason: Hypoglycemia Last Admin: 08/10/19 05:10 Dose: 12.5 gm Documented by: Donepezil HCl (Aricept) 5 mg PO QHS [facility] Last Admin: 08/11/19 21:46 Dose: 5 mg Documented by: Duloxetine HCl (Cymbalta) 60 mg PO DAILY [facility] Last Admin: 08/12/19 09:40 Dose: 60 mg Documented by: Ferrous S[facility] ([facility] Sulfate) [facility] Last Admin: 08/12/19 09:40 Dose: 325 mg Documented by: Furosemide (Lasix) 40 mg PO DAILY [facility] Last Admin: 08/12/19 09:40 Dose: 40 mg Documented by: Gabapentin (Neurontin) 300 mg PO BID [facility] Last Admin: 08/12/19 09:40 Dose: 300 mg Documented by: Glucagon () 1 mg IM .X1 PRN PRN Reason: Hypoglycemia Hydralazine HCl (Apresoline) 50 mg PO TID [facility] Last Admin: 08/12/19 06:31 Dose: 50 mg Documented by: Sodium Chloride () 1,000 mls @ 100 mls/hr IV .Q10H [facility] Last Admin: 08/12/19 09:36 Dose: 100 mls/hr Documented by: Insulin Human Lispro (Humalog Kwikpen (Bkc)) 0 unit SC ACHS [facility]; Protocol Last Admin: 08/12/19 11:18 Dose: Not Given Documented by: Levofloxacin (Levaquin Tablet) 750 mg PO DAILY@0600 [facility] Lorazepam (Ativan) 1 mg IV X1 PRN PRN Reason: SEIZURES Magnesium Oxide (Mag-Ox 400) 400 mg PO BID [facility] Last Admin: 08/12/19 09:40 Dose: 400 mg Documented by: Nitroglycerin (Nitrostat) 0.4 mg SUBLINGUAL Q5M PRN PRN Reason: CARDIAC/CHEST PAIN Nutritional Formula (Ej - Panola Flavor) 1 packet PO BIDCM [facility] Last Admin: 08/12/19 09:40 Dose: Not Given Documented by: Nystatin (Mycostatin Powder) 1 applic TOPICAL TID [facility]; Protocol Last Admin: 08/12/19 06:33 Dose: 1 applicatio Documented by: Ondansetron HCl (Zofran) 4 mg IV Q8H PRN PRN PRN Reason: NAUSEA/VOMITING Pantoprazole Sodium (Protonix) 40 mg PO DAILY [facility] Last Admin: 08/12/19 09:40 Dose: 40 mg Documented by: Prochlorperazine Edisylate (Compazine Iv) 5 mg IV Q4H PRN PRN PRN Reason: Breakthrough Nausea/Vomiting Sodium Chloride () 10 - 40 ml IV UD PRN PRN Reason: SALINE FLUSH Last Admin: 08/10/19 10:53 Dose: 20 ml Documented by: Home Medications: Medications to take at Discharge Amiodarone HCl 200 mg PO DAILY 04/09/18 Duloxetine HCl 60 mg PO DAILY 04/09/18 Magnesium Oxide [Mag-Ox 400] 400 mg PO BID 04/09/18 Donepezil HCl 5 mg PO QHS 08/19/18 Potassium Chloride [Klor-Con M20] 20 meq PO BID 08/19/18 hydrALAZINE [Apresoline] 50 mg PO TID 01/04/19 Apixaban [Eliquis] 2.5 mg PO BID 02/07/19 Ferrous Sulfate 325 mg PO BID #90 02/18/19 Furosemide [Lasix] 40 mg PO DAILY 05/13/19 Acetaminophen [Tylenol Tablet] 650 mg PO Q6H PRN PRN tab 05/15/19 Nutritional Supplement [Ej - ORANGE FLAVOR] 1 packet PO BIDCM packet 05/15/19 Nystatin Powder [Mycostatin Powder] 1 applic TOPICAL TID bottle 05/15/19 amlodipine 2.5 mg tablet 2.5 mg PO DAILY #90 tab 05/19/19 Atorvastatin Calcium [Lipitor] 20 mg PO QHS 08/04/19 Carbamazepine [Tegretol] 400 mg PO QHS 08/04/19 Omeprazole [Prilosec] 20 mg PO DAILY 08/04/19 Ondansetron [Zofran Odt] 4 mg PO Q8H PRN PRN #10 tab 08/04/19 Albuterol Aerosols [Ventolin Aerosols] 2.5 mg INHALATION Q2H PRN PRN vial.neb. 08/12/19 Gabapentin [Neurontin] 300 mg PO BID cap 08/12/19 levoFLOXacin tablet [Levaquin tablet] 750 mg PO DAILY@0600 5 Days tab 08/12/19 Primary Care Physician: Octaviano Franco Chi, MD [Primary Care Provider] - Please follow up with your Primary Care Physician in: 1 Week Disposition: [facility] facility Minutes spent on discharge:: 35 Patient Condition:: Stable Medical Necessity - Tobacco Use Smoking Status: Former smoker Meaningful Use Info Meaningful Use Diagnoses (Choose all that apply): None applicable <Wilma Cortes - Last Filed: 08/12/19 13:58> Discharge Date and Diagnosis - Secondary Discharge Diagnosis Chronic Problems: Chronic Problems (Last Reviewed 08/09/19 @ 19:[address] Luz Ramirez DO) General weakness (Chronic) Debility (Chronic) Peripheral vascular disease (Chronic) Multiple sclerosis (Chronic) Carcinoma of lip (Chronic) Trigeminal neuralgia (Chronic) History of DVT (deep vein thrombosis) (Chronic) LAURITA (obstructive sleep apnea) (Chronic) Venous insufficiency of both lower extremities (Chronic) Venous insufficiency of both lower extremities (Chronic) Chronic GI bleeding (Chronic) GERD (gastroesophageal reflux disease) (Chronic) Dementia (Chronic) Restrictive airway disease (Chronic) LAURITA (obstructive sleep apnea) (Chronic) Essential hypertension (Chronic) Type 2 diabetes mellitus (Chronic) Diastolic CHF (Chronic) Iron deficiency anemia (Chronic) etiology unknown Ulcer of right lower extremity with fat layer exposed (Chronic) Presence of stent in coronary artery (Chronic ~08/29/12) PTCA/stent to CX; PTCA/Stent PTCA/stent to prox RCA 05/06; PTCA/LILY in mid to distal RCA 08/29/12 Atherosclerotic heart disease of [place] coronary artery without angina pectoris (Chronic) PTCA/stent to CX; PTCA/Stent PTCA/stent to prox RCA 05/06; PTCA/LILY in mid to distal RCA 08/29/12; CABG x2 ARREGUNI tp LAD and SVG to OM2 01/02/11 S/P CABG (coronary artery bypass graft) (Chronic ~01/02/11) CABG x2 ARREGUIN tp LAD and SVG to OM2 01/02/11 Paroxysmal atrial fibrillation (Chronic) Hyperlipidemia (Chronic) Hospital Course and Treatment Consultations 08/10/19 12:32 Consult: Onc/Wound/sill worker Routine Comment: Reason for Consult:: Chronic RLE wound, hx MRSA Summary of Care Provided: The following is a reflection of my own history and exam ASSESSMENT Multifocal PNA NAYA Enterobacter UTI Metabolic Encephalopathy-->now resolved Anemia-mild normocytic DM-2 CAD PAF HTN HPL CKD stage 3 Mild Cognitive Impairment At Risk for Malnutrition MS [id number]-vezmxeltc PLAN -remains on RA -continue levoquin for 4 more days to total 7 days of treatment -blood cx are negative -renal fxn at baseline -BGT stable -d/c back to [facility] today with instruction to use angeline lift less and pt of be up OOB at least BID - Physical Exam Vitals/I&O's: Vital Signs Temp Pulse Resp BP Pulse Ox 98.2 F 72 18 157/59 H 93 08/12/19 12:30 08/12/19 12:30 08/12/19 12:30 08/12/19 12:30 08/12/19 12:30 Oxygen Flow Rate (L/min) 2 Oxygen Delivery Method Room Air Weight: 81.4 kg Body Mass Index (BMI) 28.8 Finger Stick Blood Glucose 97 Intake and Output for Last 24 Hours 08/10/19 08/11/19 08/12/19 23:59 23:59 23:59 Intake Total 2703.87 / 2703.87 3930.00 / 3930.00 1876.77 / 1876.77 Output Total 1025 / 1025 1100 / 1100 225 / 225 Balance 1678.87 / 1678.87 2830.00 / 2830.00 1651.77 / 1651.77 General: Alert, Cooperative, No apparent distress, Well developed, Well nourished, - - obese WF lying in bed, appears comfortable HEENT: Atraumatic, PERRLA, EOMI, Normocephalic, EAC Clear Oral: Moist Mucosa, No Gingival or Mucosal Lesions/ Ulcerations Neck: Supple, No JVD, No Nodes, Trachea Midline Lungs: Clear to auscultation, Normal air movement, No rhonchi, No wheeze, No rales Cardiovascular: Regular rate, Regular Rhythm, Normal S1, Normal S2, No murmurs, No Ectopic Activity, No rub noted, No Gallop Abdomen: Bowel Sounds Present, Soft, Non Tender, Non-Distended, Obese Extremities: No clubbing, No cyanosis, No edema, Capillary Refill Less than 3 Seconds, Peripheral Pulses Normal Skin: No rashes, No breakdown Musculoskeletal: Arthritic Changes Neurological: Neuro grossly intact Psych/Mental Status: Normal Affect, - - confused at times but at baseline, very pleasant Microbiology Past 72 Hours 08/09/19 19:30 Blood Culture (Wb) #2 - Right Wrist Blood Culture - Preliminary No growth in 48 hours. 08/09/19 15:05 Blood Culture (Wb) - Arm Left Blood Culture - Preliminary No growth in 48 hours. 08/09/19 15:25 Blood Culture (Wb) - Arm Right Blood Culture - Preliminary No growth in 48 hours. 08/09/19 16:11 Urine, Catheterized Urine Culture - Final Enterobacter cloacae complex Laboratory Results 08/11/19 16:13: POC Glucose 155 H 08/12/19 06:36: POC Glucose 92 08/12/19 11:16: POC Glucose 95 Current Medications Acetaminophen (Tylenol) 650 mg PO Q6H PRN PRN PRN Reason: Pain Score 1-10/Temp > 100.7 F Albuterol Sulfate (Ventolin Aerosols) 2.5 mg INHALATION Q2H PRN PRN PRN Reason: SOB/Wheezing Albuterol/Ipratropium (Duoneb) 3 ml INHALATION Q4HWA.RT [facility] Last Admin: 08/12/19 10:58 Dose: Not Given Documented by: Amiodarone HCl (Cordarone) 200 mg PO DAILY@0800 [facility] Last Admin: 08/12/19 09:40 Dose: 200 mg Documented by: Amlodipine Besylate (Norvasc) 2.5 mg PO DAILY [facility] Last Admin: 08/12/19 09:40 Dose: 2.5 mg Documented by: Apixaban (Eliquis) 2.5 mg PO BID [facility] Last Admin: 08/12/19 09:40 Dose: 2.5 mg Documented by: Aspirin (Ecotrin) 81 mg PO DAILY@0800 [facility] Last Admin: 08/12/19 09:40 Dose: 81 mg Documented by: Atorvastatin Calcium (Lipitor) 20 mg PO QHS [facility] Last Admin: 08/11/19 21:47 Dose: 20 mg Documented by: Carbamazepine (Tegretol) 400 mg PO QHS [facility] Last Admin: 08/11/19 21:46 Dose: 400 mg Documented by: Dextrose (D50w Syringe) 0 gm IV X1 PRN; Protocol PRN Reason: Hypoglycemia Last Admin: 08/10/19 05:10 Dose: 12.5 gm Documented by: Donepezil HCl (Aricept) 5 mg PO QHS [facility] Last Admin: 08/11/19 21:46 Dose: 5 mg Documented by: Duloxetine HCl (Cymbalta) 60 mg PO DAILY [facility] Last Admin: 08/12/19 09:40 Dose: 60 mg Documented by: Ferrous Sulfate ([facility] Sulfate) [facility] Last Admin: 08/12/19 09:40 Dose: 325 mg Documented by: Furosemide (Lasix) 40 mg PO DAILY [facility] Last Admin: 08/12/19 09:40 Dose: 40 mg Documented by: Gabapentin (Neurontin) 300 mg PO BID [facility] Last Admin: 08/12/19 09:40 Dose: 300 mg Documented by: Glucagon () 1 mg IM .X1 PRN PRN Reason: Hypoglycemia Hydralazine HCl (Apresoline) 50 mg PO TID [facility] Last Admin: 08/12/19 06:31 Dose: 50 mg Documented by: Sodium Chloride () 1,000 mls @ 100 mls/hr IV .Q10H [facility] Last Infusion: 08/12/19 12:46 Dose: 0 mls/hr Documented by: Insulin Human Lispro (Humalog Kwikpen (Bkc)) 0 unit SC ACHS [facility]; Protocol Last Admin: 08/12/19 11:18 Dose: Not Given Documented by: Levofloxacin (Levaquin Tablet) 750 mg PO DAILY@0600 [facility] Lorazepam (Ativan) 1 mg IV X1 PRN PRN Reason: SEIZURES Magnesium Oxide (Mag-Ox 400) 400 mg PO BID [facility] Last Admin: 08/12/19 09:40 Dose: 400 mg Documented by: Nitroglycerin (Nitrostat) 0.4 mg SUBLINGUAL Q5M PRN PRN Reason: CARDIAC/CHEST PAIN Nutritional Formula (Ej - Panola Flavor) 1 packet PO BIDCM [facility] Last Admin: 08/12/19 09:40 Dose: Not Given Documented by: Nystatin (Mycostatin Powder) 1 applic TOPICAL TID [facility]; Protocol Last Admin: 08/12/19 06:33 Dose: 1 applicatio Documented by: Ondansetron HCl (Zofran) 4 mg IV Q8H PRN PRN PRN Reason: NAUSEA/VOMITING Pantoprazole Sodium (Protonix) 40 mg PO DAILY [facility] Last Admin: 08/12/19 09:40 Dose: 40 mg Documented by: Prochlorperazine Edisylate (Compazine Iv) 5 mg IV Q4H PRN PRN PRN Reason: Breakthrough Nausea/Vomiting Sodium Chloride () 10 - 40 ml IV UD PRN PRN Reason: SALINE FLUSH Last Admin: 08/10/19 10:53 Dose: 20 ml Documented by: Inpatient E&M: [id number] Disch Hosp
--- NOTE | 2019-08-12 11:50 | CASEMGMT ---
Patient is ready for discharge back to Nursery at [facility]. JAGDEEP faxed orders to Nursery. JAGDEEP called [facility] and arranged for patient to get picked up at 2p via cot. JAGDEEP notified RN, aluminum boat assembly supervisor, and Quiana at Nursery. SW offered to call patient's family, but she declined stating she will call them when she gets back. Plan: d/c back to Nursery at [facility] under intermediate level of care. Nursery is trying to get her skilled. [facility] transported aptient via cot. Mariaa COSTELLO MSW
--- NOTE | 2019-08-12 12:04 | PHA.DC.MR ---
Pharmacy Service has performed discharge medication reconciliation for this patient upon transfer to [facility]. The patient's discharge medication list was reviewed for discrepancies and discrepancies were resolved. Home Medications Amiodarone HCl 200 mg PO DAILY 04/09/18 Duloxetine HCl 60 mg PO DAILY 04/09/18 Magnesium Oxide [Mag-Ox 400] 400 mg PO BID 04/09/18 Donepezil HCl 5 mg PO QHS 08/19/18 Potassium Chloride [Klor-Con M20] 20 meq PO BID 08/19/18 hydrALAZINE [Apresoline] 50 mg PO TID 01/04/19 Apixaban [Eliquis] 2.5 mg PO BID 02/07/19 Ferrous Sulfate 325 mg PO BID #90 02/18/19 Furosemide [Lasix] 40 mg PO DAILY 05/13/19 Acetaminophen [Tylenol Tablet] 650 mg PO Q6H PRN PRN tab 05/15/19 Nutritional Supplement [Ej - ORANGE FLAVOR] 1 packet PO BIDCM packet 05/15/19 Nystatin Powder [Mycostatin Powder] 1 applic TOPICAL TID bottle 05/15/19 amlodipine 2.5 mg tablet 2.5 mg PO DAILY #90 tab 05/19/19 Atorvastatin Calcium [Lipitor] 20 mg PO QHS 08/04/19 Carbamazepine [Tegretol] 400 mg PO QHS 08/04/19 Omeprazole [Prilosec] 20 mg PO DAILY 08/04/19 Ondansetron [Zofran Odt] 4 mg PO Q8H PRN PRN #10 tab 08/04/19 Albuterol Aerosols [Ventolin Aerosols] 2.5 mg INHALATION Q2H PRN PRN vial.neb. 08/12/19 Gabapentin [Neurontin] 300 mg PO BID cap 08/12/19 levoFLOXacin tablet [Levaquin tablet] 750 mg PO DAILY@0600 5 Days tab 08/12/19
[2019-08-12 12:26] LABS: Bedside Glucose 95 mg/dL (70-110)
--- NOTE | 2019-08-12 12:46 | NURSING ---
Report called to nurse Benton at [facility] for pt transfer.
== END 2019-08-12 14:58 | disposition skilled nursing facility (03) | DRG 689 ==
LOC: ED 14:52 → PCU 18:01
PROVIDERS: Emergency Medicine; Internal Medicine; Nurse Practitioner Family; Admitting Provider Internal Medicine; Emergency Provider Emergency Medicine; PCP Family Medicine Geriatric Medicine; Visit Provider Internal Medicine
DX: N39.0 Urinary tract infection, site not specified (principal); G93.41 Metabolic encephalopathy; J18.9 Pneumonia, unspecified organism; E44.1 Mild protein-calorie malnutrition; I13.0 Hypertensive heart and chronic kidney disease with heart failure and stage 1 through stage 4 chronic kidney disease, or unspecified chronic kidney disease; I50.32 Chronic diastolic (congestive) heart failure; L97.912 Non-pressure chronic ulcer of unspecified part of right lower leg with fat layer exposed; Z16.29 Resistance to other single specified antibiotic; N17.9 Acute kidney failure, unspecified; B96.89 Other specified bacterial agents as the cause of diseases classified elsewhere; E11.22 Type 2 diabetes mellitus with diabetic chronic kidney disease; N18.3 Chronic kidney disease, stage 3 (moderate); G35 Multiple sclerosis; I25.10 Atherosclerotic heart disease of native coronary artery without angina pectoris; I48.0 Paroxysmal atrial fibrillation; E78.5 Hyperlipidemia, unspecified; G50.0 Trigeminal neuralgia; G47.33 Obstructive sleep apnea (adult) (pediatric); R41.89 Other symptoms and signs involving cognitive functions and awareness; F03.90 Unspecified dementia, unspecified severity, without behavioral disturbance, psychotic disturbance, mood disturbance, and anxiety; Z87.891 Personal history of nicotine dependence; Z66 Do not resuscitate; R06.89 Other abnormalities of breathing; R53.81 Other malaise; E11.51 Type 2 diabetes mellitus with diabetic peripheral angiopathy without gangrene; Z86.718 Personal history of other venous thrombosis and embolism; I87.2 Venous insufficiency (chronic) (peripheral); Z95.5 Presence of coronary angioplasty implant and graft; K21.9 Gastro-esophageal reflux disease without esophagitis; D50.9 Iron deficiency anemia, unspecified; E11.622 Type 2 diabetes mellitus with other skin ulcer; Z95.1 Presence of aortocoronary bypass graft; D63.1 Anemia in chronic kidney disease; Z79.02 Long term (current) use of antithrombotics/antiplatelets; Z79.899 Other long term (current) drug therapy; E86.0 Dehydration; R09.02 Hypoxemia; Z99.81 Dependence on supplemental oxygen; Z91.19 Patient's noncompliance with other medical treatment and regimen; E66.9 Obesity, unspecified; Z68.28 Body mass index [BMI] 28.0-28.9, adult
CPT/HCPCS: 36415; 36600; 51702; 70450; 70496; 70498; 71045; 80048; 80053; 80061; 80076; 81001; 82803; 82962; 83605; 83735; 84100; 84443; 84484; 85025; 85027; 85610; 85730; 87040; 87077; 87086; 87088; 87186; 87635; 87641; 92526; 92610; 93005; 94640; 94762; 97162; 97164; 97166; 97167; 97168; 97530; 97535; 97802; 99251; 99285; G2023; J2185; J7030; J7040; Q9967; A4216; G0463; J3490; U0003

== ENCOUNTER → 2019-10-29 | Outpatient (CLI) | payer MEDICARE, SELFPAY ==
[2019-08-09 18:55] VITALS: BMI 28.8
--- NOTE | 2019-10-29 15:10 | RAD_ITS ---
STUDY: X-RAY - LEFT SHOULDER REASON FOR EXAM: Female, 74 years old. pain in left shoulder, NKI TECHNIQUE: 4 view(s) of the shoulder. COMPARISON: Prior study 05/11/2019 FINDINGS: There is mild degenerative arthrosis of the glenohumeral articulation. There is degenerative arthrosis of the acromioclavicular joint without inferior osseous spur formation. Normal acromion. There is a high riding left humeral head which may be associated with rotator cuff abnormality. The soft tissue structures are unremarkable. Normal visualized pulmonary apex. RAD/Shoulder min 2 Views IMPRESSION: Degenerative changes of the glenohumeral and acromioclavicular joints. The left humeral head is high riding which may be associated with rotator cuff abnormality. Electronically Signed: Lester Maurer MD at 16:10 EDT , Service support ,
== END | disposition home or self-care (01) ==
PROVIDERS: PCP Family Medicine Geriatric Medicine; Referring Provider Anesthesiology Pain Medicine; Visit Provider Anesthesiology Pain Medicine
DX: M25.512 Pain in left shoulder (principal)
CPT/HCPCS: 73030

== ENCOUNTER → 2020-07-23 13:52 | Outpatient (CLI) | payer MEDICARE, MEDICAID, SELFPAY ==
[2019-08-09 18:55] VITALS: BMI 28.8
--- NOTE | 2020-07-23 13:59 | US_ITS ---
STUDY: ULTRASOUND BREAST - RIGHT REASON FOR EXAM: Female, 75 years old. TECHNIQUE: Axial and longitudinal images of the RIGHT breast were performed with a high resolution ultrasound transducer. # OF IMAGES: 17 COMPARISON: None. FINDINGS: RIGHT Breast: There is a 1.1 x 0.1 cm focal area of thickening of the skin around 4 o''clock could be related to infection rather than actual mass. No obvious masses or cystic changes in the right base. US/Breast Limited Unilateral IMPRESSION: Focal area of skin thickening at 4 o''clock as mentioned. ASSESSMENT CATEGORY: Electronically Signed: Sheron Sotelo, at 10:29 EDT Tel , Service support ,
--- NOTE | 2020-07-23 13:59 | BI_ITS ---
MAMMOGRAPHY - BILATERAL DIAGNOSTIC REASON FOR EXAM: Female, 75 years old. Probable abnormality in the right breast. PERTINENT HISTORY: Grandmother with breast cancer. TECHNIQUE: Digital bilateral breast nakul (3D mammographic acquisition) in the CC and MLO projections. 2-D mediolateral oblique (MLO) and craniocaudad (CC) views of both breasts were obtained. CAD: Full Field Digital Mammography with Computer Added Detection was performed. COMPARISON: Comparison is made with prior study dated 08/20/2014 and 08/19/2013. FINDINGS: Breast Composition: There are scattered areas of fibroglandular density. There are no dominant masses or suspicious calcifications. No other significant abnormalities are identified. There has been no significant change since the prior study. BI/DIAG MAMM W/CAD, BILAT IMPRESSION: Stable bilateral diagnostic mammogram. With the patient''s history of a palpable lump in the right breast, correlation with ultrasound is recommended. ASSESSMENT CATEGORY: BIRADS Category 0: Incomplete. Need additional imaging evaluation. A letter regarding these results will be sent to the patient by the facility within 30 days. Approximately 10% of breast cancers are not detected by mammography. A normal mammogram should not delay biopsy of a clinically suspicious abnormality. Electronically Signed: Milo Hughes MD at 15:13 EDT , Service support ,
== END ==
PROVIDERS: PCP Family Medicine Geriatric Medicine; Referring Provider Family Medicine; Visit Provider Family Medicine
DX: R92.8 Other abnormal and inconclusive findings on diagnostic imaging of breast (principal); N63.10 Unspecified lump in the right breast, unspecified quadrant; Z80.3 Family history of malignant neoplasm of breast
CPT/HCPCS: 76642; 77062; 77066; G0279

== ENCOUNTER → 2020-09-21 15:57 | Outpatient (CLI) | payer MEDICARE, MEDICAID, SELFPAY ==
[2020-09-21 08:36] VITALS: BMI 43.0
--- NOTE | 2020-09-21 16:42 | RAD_ITS ---
STUDY: X-RAY CHEST REASON FOR EXAM: Female, 75 years old. shelter use of Amiodarone TECHNIQUE: PA and lateral chest radiographs 05/13/2019, 08/09/2019 COMPARISON: None. FINDINGS: Sternal wires and CABG redemonstrated. The lungs are clear and expanded. There is no demonstrated pleural abnormality. Normal size heart. Normal mediastinum and alee. Normal visualized pulmonary arteries. Normal visualized aortic arch and descending thoracic aorta. Normal visualized thoracic spine. Normal visualized ribs, clavicles, and shoulders. There is no demonstrated abnormality of the visualized soft tissue structures of the upper abdomen. RAD/Chest PA and Lateral IMPRESSION: Normal x-ray examination of the chest. Electronically Signed: Uriel Arriaga MD at 3:00 EDT Tel , Service support ,
[2020-09-21 18:00] LABS: AST(SGOT) 15 U/L (15-37); Alanine Aminotransfer ALT/SGPT 20 U/L (13-56); Albumin, Serum 2.9 g/dL (3.2-5.0); Alkaline Phosphatase 197 U/L (45-117); Bilirubin, Direct 0.05 mg/dL (0.00-0.30); Globulin 3.7 g/dL (2.2-4.2); Protein, Total 6.6 g/dL (6.4-8.2); T4 Free Direct 1.19 ng/dL (0.76-1.46); Thyroid Stim Hormone (TSH) 0.71 uIU/mL (0.358-3.74)
== END ==
PROVIDERS: PCP Family Medicine Geriatric Medicine; Referring Provider Nurse Practitioner Gerontology; Visit Provider Nurse Practitioner Gerontology
DX: Z79.899 Other long term (current) drug therapy (principal)
CPT/HCPCS: 36415; 71046; 80076; 84439; 84443

== ENCOUNTER → 2020-09-30 09:33 | Outpatient (CLI) | payer MEDICARE, MEDICAID, SELFPAY ==
--- NOTE | 2020-10-01 10:13 | PFT_ITS ---
INTRODUCTION: The patient is a 75-year-old female that presents for pulmonary function studies secondary to a diagnosis of long-term medication use. Respiratory therapy reported that the patient was unable to complete body plethysmography, as she was unable to transfer into the box. INTERPRETATION: Forced expiration spirometry demonstrates no evidence of a large airways ob structive ventilatory defect. There was no significant response to aerosolized bronchodilators. Spirograms are of fair quality and plateau gradually. Diffusing capacity by single breath CO is reduced at 56% of predicted. IMPRESSION: Moderate reduction in diffusing capacity, which could be related to an underlying pulmonary vascular disorder such as pulmonary hypertension. Clinical correlation is recommended.
== END ==
PROVIDERS: PCP Family Medicine Geriatric Medicine; Referring Provider Nurse Practitioner Gerontology; Visit Provider Nurse Practitioner Gerontology
DX: Z79.899 Other long term (current) drug therapy (principal)
CPT/HCPCS: 94060; 94729

== ENCOUNTER 2020-10-18 15:18 | Emergency (ER) | payer MEDICARE, MEDICAID, SELFPAY ==
[2020-10-18 15:20] VITALS: BP 127/74; PULSE 85; RESP 18; TEMP 36.7; O2SAT 98; BMI 39.0
--- NOTE | 2020-10-18 15:50 | CT_ITS ---
HISTORY: FACIAL DROOP TECHNIQUE: Multiple axial images were obtained of the brain without intravenous contrast. A radiation dose optimization technique was used for this scan. IV Contrast dosage and agent: None. COMPARISON: 08/09/19 FINDINGS: # of images incl. paperwork: [phone] PARANASAL SINUSES AND MASTOID AIR CELLS: Clear. INTRACRANIAL HEMORRHAGE: None. BRAIN PARENCHYMA: No CT evidence of acute stroke. No intracranial masses. There is preservation of the montiel/white matter interface. Posterior fossa structures are unremarkable. There is hypoattenuation of the periventricular white matter. Chronic involutional changes are noted. CSF SPACES: Stable mild ventricular enlargement. MASS EFFECT: None. CALVARIUM: No acute fracture. CT/Brain/Head without Contrast IMPRESSION: Chronic involutional and white matter changes. No acute intracranial process. Individualized dose optimization techniques were used for this CT. at 1617 Reported and signed by: Juno Manning MD Electronically Signed: Juno Manning MD at 16:15 EDT Tel , Service support ,
--- NOTE | 2020-10-18 19:28 | EDS_ITS ---
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 She hit her head, left shoulder, left hip. She has not tried to bear weight yet. She complains mostly of pain in her left shoulder. She had chronic problems in that shoulder. She had a dislocation, she suggested it was not able to be fixed and the orthopedic referred her to physical therapy, after that she still had issues so she had an injection, and at baseline before this injury today she has chronic issues with that shoulder but is not able to raise her arm. She can use her hand at waist level without any difficulty. [facility] Medical History (Updated 10/18/20 @ 22:[address] 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 Cellulitis of right leg Diabetic ulcer of both lower extremities Essential hypertension History of DVT (deep vein thrombosis) Hyperlipidemia Multiple sclerosis LAURITA (obstructive sleep apnea) Paroxysmal atrial fibrillation Peripheral vascular disease Trigeminal neuralgia Type 2 diabetes mellitus Ulcer of left lower extremity with fat layer exposed Ulcer of right lower extremity with fat layer exposed Venous insufficiency of both lower extremities Home Medications amiodarone 200 mg PO DAILY 04/09/18 [History Last Taken 05/13/19] duloxetine 60 mg PO DAILY 04/09/18 [History Last Taken 05/13/19] magnesium oxide 400 mg PO BID 04/09/18 [History Last Taken 05/13/19] potassium chloride 20 meq PO BID 08/19/18 [History Last Taken 05/13/19] hydralazine 50 mg PO TID 01/04/19 [History Last Taken 05/13/19] apixaban 2.5 mg PO BID 02/07/19 [History Last Taken 05/13/19] acetaminophen 650 mg PO Q6H PRN PRN tab 05/15/19 [Rx Last Taken Unknown] [id number] 1 packet PO BIDCM packet 05/15/19 [Rx Last Taken Unknown] atorvastatin 20 mg PO QHS 08/04/19 [History Last Taken Unknown] carbamazepine 400 mg PO QHS 08/04/19 [History Last Taken Unknown] omeprazole 20 mg PO DAILY 08/04/19 [History Last Taken Unknown] albuterol sulfate 2.5 mg INHALATION Q2H PRN PRN vial.neb. 08/12/19 [Rx Last Taken Unknown] amlodipine 2.5 mg tablet 5 mg PO DAILY tab 09/21/20 [History Last Taken Unknown] furosemide 40 mg tablet 40 mg PO DAILY 09/21/20 [History Last Taken Unknown] gabapentin 300 mg capsule 300 mg PO TID cap 09/21/20 [History Last Taken Unknown] tramadol 50 mg tablet 50 mg PO Q8H PRN 09/21/20 [History Last Taken Unknown] Allergy/AdvReac Type Severity Reaction Status Date / Time codeine Allergy Unknown Hives Verified 10/18/20 15:24 cefazolin Allergy Rash Verified 10/18/20 15:24 ciprofloxacin [From Cipro] Allergy Hives Verified 10/18/20 15:24 ciprofloxacin HCl Allergy Hives Verified 10/18/20 15:24 [From Cipro] Latex, Natural Rubber Allergy Rash Verified 10/18/20 15:24 Penicillins [PCN] Allergy Hives Verified 10/18/20 15:24 vancomycin Allergy Angioedema Verified 10/18/20 15:24 adhesive tape AdvReac Rash Verified 10/18/20 15:24 Family History Father Heart disease Cancer prostate Mother Hypertension Cancer mets but unsure where to Breast cancer Brother Diabetes Hypertension Surgical History History of cataract surgery History of cholecystectomy History of hernia repair History of tonsillectomy and adenoidectomy History of total hysterectomy Presence of coronary angioplasty implant and graft (~08/29/12) S/P CABG (coronary artery bypass graft) (~01/02/11) Social History Smoking Status: Former smoker how long ago did patient quit smokin alcohol intake: never substance use type: does not use caffeine: Yes Type: coffee Number of servings: 1 additional social history: DOES NOT USE ASPIRIN DOES US IBUPROFEN ROS ROS ED Constitutional Constitutional ED: Denies chills or fever(s) Eyes Eyes: Denies change in vision or diplopia ENT ENT ED: Denies ear pain, epistaxis, facial pain or rhinorrhea Cardiovascular Cardiovascular: Denies chest pain or palpitations Respiratory/Chest Respiratory/Chest: Denies cough or dyspnea Gastrointestinal Gastrointestinal: Denies abdominal pain, diarrhea, melena, nausea or vomiting Genitourinary Genitourinary ED: Denies dysuria or hematuria Musculoskeletal Musculoskeletal: Reports as per HPI and extremity pain; Denies back pain or neck pain Integumentary Reports laceration; Denies abscess, Abrasions or rash Neurologic Neurologic: Denies confusion, headache(s), paresthesias or weakness EXAM Physical Exam Const Vital Signs: 10/18/20 15:20 10/18/20 20:24 10/18/20 22:07 Temperature 98.0 F Temperature Source Temporal Pulse Rate 85 86 88 Respiratory Rate 18 18 21 H Respiratory Effort Normal Non-Labored Blood Pressure 127/74 H 158/137 H 133/72 H Blood Pressure Mean 91 144 92 Pulse Ox 98 96 95 Oxygen Delivery Method Room Air Room Air Room Air Positive well nourished and well developed General Appearance ED: well developed and NAD HEENT Reports TM's clear and nasal mucous membranes and turbinates normal HEENT Narrative: Mild tenderness to contusion/small hematoma left parietal occipital scalp with laceration. No crepitance or depression. Face and Sinus: Negative for facial tenderness Tympanic Membrane ED: Yes TM's clear Eyes PERRL and EOMs intact bilaterally Visual Acuity: other Other Details: no entrapment or pain with extraocular movements Neck full ROM and supple General: Negative for tenderness Chest Wall inspection of chest normal and palpation of chest normal Chest: symmetrical chest wall rise; Negative for crepitus or tenderness Resp normal respiratory effort and clear to auscultation bilaterally Percussion: other equal BS bilat Cardio no murmurs Rate: regular rate Rhythm: regular rhythm GI normal to inspection, nondistended, normoactive bowel sounds, soft to palpation and non-tender Back/Spine normal ROM Cervical Spine: Negative for cervical spine tenderness Thoracic Spine / Upper Back: Negative for thoracic spinal tenderness Lumbar Spine / Lower Back: Negative for lumbar spinal tenderness Extremity normal to inspection Extremity Narrative: Tender left shoulder, no deformity. Limited range of motion. Able to abduct to 10 degrees. Nontender at the acromioclavicular joint and the rest of the clavicle. Tenderness with contusion at the left greater trochanter of the hip, but ranges very well without groin pain. Full range of motion of both lower extremities and the right upper extremity. General Extremety ED: Yes tenderness Neuro oriented x3, CN's II-XII intact bilaterally, moves all extremities, no focal motor deficits and no sensory deficits noted [place] Coma Scale: document GCS findings Spontaneous Obeys Commands Oriented 15 Sensorium / Orientation: awake and alert Psych mental status grossly normal and thought process normal Skin Skin Narrative: 1 cm full-thickness clean linear laceration left parietal occipital scalp, and another 1.5 cm laceration next to it but separate. Lesions: no lesions Rashes: no rashes MDM MDM MDM Narrative Medical decision making narrative: Patient had a mechanical fall I do not think she needs a medical work-up. CT and x-rays show no acute injury, her scalp lacerations were repaired, removal in 5-6 days, and she will be discharged back to care home. She was given [place] for pain. Left shoulder x-ray showed chronic rotator cuff arthropathy, I discussed that with her, orthopedic follow- up if she wants to seek evaluation for repair which she states at this time she does not. Radiography Diagnostic Testing: Radiology Impression Brain CT 10/18/20 15:50 IMPRESSION: Chronic involutional and white matter changes. No acute intracranial process. Individualized dose optimization techniques were used for this CT. at 1617 Reported and signed by: Juno Manning MD Electronically Signed: Juno Manning MD at 16:15 EDT Tel , Service support , Pelvis X-Ray 10/18/20 19:40 IMPRESSION: No evidence of displaced pelvic or hip fracture. at 2046 Reported and signed by: Juno Manning MD Electronically Signed: Juno Manning MD at 20:45 EDT Tel , Service support , Shoulder X-Ray 10/18/20 19:50 IMPRESSION: No acute bony abnormality. Rotator cuff arthropathy. at 2049 Reported and signed by: Juno Manning MD Electronically Signed: Juno Manning MD at 20:48 EDT Tel , Service support , Procedures Lacerations Left parietal occipital scalp: Length: 2.5 cm (Total between 2 lacerations see above) Depth: Sub Q Shape: Linear Prep: Sterile Conditions and Chlorhexadine Laceration repair: Lidocaine with epi (3 cc total) and Local Irrigated (ml): 40 Number of Sutures/[place]: 5 (5 total, 2 in one and 3 in the other) Suture Information: - (Skin moe) Discharge Plan Triage Chief Complaint: Fall ED Provider: Kash Cárdenas Dx/Rx/DC Orders Clinical Impression: Closed head injury without concussion, Laceration of scalp, Contusion of left shoulder, Contusion of hip, left, Accidental fall Instructions: ED Laceration Scalp Stitches or [place] Prescriptions: No Action amlodipine 2.5 mg tablet 5 mg PO DAILY RF: 0 gabapentin 300 mg capsule 300 mg PO TID RF: 0 tramadol 50 mg tablet 50 mg PO Q8H PRNRF: 0 amiodarone 200 MG tablet 200 mg PO DAILY RF: 0 magnesium oxide 400 MG tablet 400 mg PO BID RF: 0 duloxetine 60 MG capsule,delayed release(DR/EC) 60 mg PO DAILY RF: 0 potassium chloride 20 MEQ tablet,ER particles/crystals 20 meq PO BID RF: 0 hydralazine 50 MG tablet 50 mg PO TID RF: 0 apixaban 2.5 MG tablet 2.5 mg PO BID RF: 0 acetaminophen 325 MG tablet 650 mg PO Q6H PRN PRN (Reason: Pain Score 1-10/Temp > 100.7 F) RF: 0 [id number] 1 PACKET packet 1 packet PO BIDCM RF: 0 furosemide 40 mg tablet 40 mg PO DAILY RF: 0 atorvastatin 20 MG tablet 20 mg PO QHS RF: 0 omeprazole 20 MG capsule 20 mg PO DAILY RF: 0 carbamazepine 200 MG tablet 400 mg PO QHS RF: 0 albuterol sulfate 2.5 MG/3 ML solution for nebulization 2.5 mg inhalation Q2H PRN PRN (Reason: SOB/Wheezing) RF: 0 Primary Care Provider: Octaviano Franco Chi Referrals: Octaviano Franco Chi, MD [Primary Care Provider] - 5 Days for suture removal Disposition Disposition: Home, Self Care
--- NOTE | 2020-10-18 19:40 | RAD_ITS ---
HISTORY: Trauma, injury/fall EXAMINATION/TECHNIQUE: XR Pelvis 1 or 2 Views: AP pelvis COMPARISON: 120 FINDINGS: PELVIC BONES: Right femoral fixator placed for intertrochanteric fracture. No acute displaced fracture, destructive or sclerotic lesions. Note that overlapping bowel shadows may however obscure fine detail. Sacroiliac joints are unremarkable. No widening of the pubic symphisis. HIPS: The articular structures are unremarkable. No displaced fracture seen in this frontal view. SOFT TISSUES: No soft tissue swelling or gas. Multiple radiodense capsules projects in the right lower quadrant in the region of the distal small bowel or colon. RAD/Pelvis 1 or 2 Views IMPRESSION: No evidence of displaced pelvic or hip fracture. at 2046 Reported and signed by: Juno Manning MD Electronically Signed: Juno Manning MD at 20:45 EDT Tel , Service support ,
--- NOTE | 2020-10-18 19:50 | RAD_ITS ---
HISTORY: Trauma, injury EXAMINATION/TECHNIQUE: XR Shoulder Min 2 Views: COMPARISON: 09/15/20 FINDINGS: BONES/JOINTS: No acute fracture. Proximal subluxation of the humeral head with loss of the subacromial joint space. No sclerotic or destructive changes observed. SOFT TISSUES: No soft tissue swelling or gas. No radiopaque foreign body. RAD/Shoulder min 2 Views IMPRESSION: No acute bony abnormality. Rotator cuff arthropathy. at 2049 Reported and signed by: Juno Manning MD Electronically Signed: Juno Manning MD at 20:48 EDT Tel , Service support ,
[2020-10-18] MEDS: HYDROcodone Bitartrate/Apap 5/325 Tablet PO (20:14)
[2020-10-18] MEDS: Lidocaine/Epi/Tetracaine 50 ML 1 APPLIC TOPICAL (20:14)
[2020-10-18 20:24] VITALS: BP 158/137; PULSE 86; RESP 18; O2SAT 95; O2SAT 96
[2020-10-18 22:07] VITALS: BP 133/72; PULSE 88; RESP 21; O2SAT 95
[2020-10-18 22:38] VITALS: BP 145/76; PULSE 87; RESP 15; O2SAT 95
--- NOTE | 2020-10-18 22:54 | ED.RN ---
REPORT CALLED TO AVENUE ON DISPO OF PT
== END 2020-10-18 23:16 | disposition skilled nursing facility (03) ==
PROVIDERS: Emergency Provider Emergency Medicine; PCP Family Medicine Geriatric Medicine
DX: S01.01XA Laceration without foreign body of scalp, initial encounter (principal); S40.012A Contusion of left shoulder, initial encounter; S70.02XA Contusion of left hip, initial encounter; I25.10 Atherosclerotic heart disease of native coronary artery without angina pectoris; I10 Essential (primary) hypertension; E78.5 Hyperlipidemia, unspecified; I48.0 Paroxysmal atrial fibrillation; E11.51 Type 2 diabetes mellitus with diabetic peripheral angiopathy without gangrene; Z79.02 Long term (current) use of antithrombotics/antiplatelets; Z79.899 Other long term (current) drug therapy; Z87.891 Personal history of nicotine dependence; W01.0XXA Fall on same level from slipping, tripping and stumbling without subsequent striking against object, initial encounter; Y93.89 Activity, other specified; Y92.122 Bedroom in nursing home as the place of occurrence of the external cause; Y99.8 Other external cause status
CPT/HCPCS: 12001; 70450; 72170; 73030; 99284

== ENCOUNTER 2020-10-21 11:25 | Observation (INO) | payer MEDICARE, MEDICAID, SELFPAY ==
[2020-10-21] VITALS (9 sets, daily range): BP systolic 116–162; BP diastolic 57–80; PULSE 82–98; RESP 18–22; TEMP 36.9–38.2; O2SAT 96–100; BMI 44.3; BMI 44.5
--- NOTE | 2020-10-21 11:39 | RAD_ITS ---
STUDY: X-RAY CHEST REASON FOR EXAM: Female, 75 years old. Confusion TECHNIQUE: Single AP portable view of the chest. COMPARISON: Comparison is made with prior study 09/21/2020. FINDINGS: EKG electrodes are seen. The lungs are clear and expanded. There is no demonstrated pleural abnormality. Sternal cerclage wires and vascular clips are present from a prior sternotomy and coronary artery bypass graft procedure (CABG). Borderline cardiomegaly. Normal mediastinum and alee. Normal visualized pulmonary arteries. There is atherosclerotic tortuosity of the aortic arch and descending thoracic aorta. There are diffuse degenerative changes of the visualized thoracic spine. There is degenerative osteoarthritis of the bilateral shoulders. There is no demonstrated abnormality of the visualized soft tissue structures of the upper abdomen. RAD/Chest 1 View (Portable) IMPRESSION: Status post CABG. Borderline cardiomegaly. Electronically Signed: Milo Hughes MD at 12:59 EDT , Service support ,
--- NOTE | 2020-10-21 11:39 | RAD_ITS ---
STUDY: X-RAY - PELVIS AND LEFT HIP REASON FOR EXAM: Female, 75 years old. Pain fall 3 days ago TECHNIQUE: 3 views of the pelvis and hip. COMPARISON: Comparison is made with prior study 10/18/2020. FINDINGS: There is a non-specific bowel gas pattern. There are multiple calcified phleboliths. There is narrowing with cortical sclerosis and osteophyte formation of the sacroiliac joint consistent with degenerative osteoarthritic changes. Normal bilateral superior and inferior pubic rami. There are degenerative changes of the pubic symphysis with articular narrowing and sclerosis. Normal bilateral ischial tuberosities. Normal visualized femoral head. Normal acetabulum. There is mild articular joint space narrowing of the hip. The patient is status post intramedullary james and compression screw fixation of the right intertrochanteric fracture. There has been no change. RAD/HIP, UNI W/ Pelvis 2-3 Views IMPRESSION: Degenerative changes. No fracture is seen. Electronically Signed: Milo Hughes MD at 12:52 EDT , Service support ,
--- NOTE | 2020-10-21 11:39 | EKG12_ITS ---
Test Reason : Blood Pressure : / mmHG Vent. Rate : 091 BPM Atrial Rate : 091 BPM P-R Int : 174 ms QRS Dur : 078 ms QT Int : 356 ms P-R-T Axes : 072 016 146 degrees QTc Int : 437 ms Normal sinus rhythm ST & T wave abnormality, consider lateral ischemia Abnormal ECG Confirmed by REBECCA HATCH, CHERYL ([id number]), newspaper managing editor BOBBY VELA ([id number]) on 10/22/2020 1:07:49 PM Referred By: SILVINA/RUBY Confirmed By:CHERYL FERNANDEZ MD
--- NOTE | 2020-10-21 11:39 | CT_ITS ---
STUDY: CT BRAIN WITHOUT CONTRAST REASON FOR EXAM: Female, 75 years old. Confusion RADIATION DOSAGE (If Supplied By Facility): CTDIvol = ( 44.99 ) mGy, DLP = ( 812.98 ) mGycm TECHNIQUE: Transaxial CT imaging of the brain was performed without administration of intravenous contrast material. Individualized dose optimization techniques were used for this CT. COMPARISON: Comparison is made with prior examination dated 10/18/2020. FINDINGS: Normal soft tissue structures. Normal calvarium. There is moderate cerebral atrophy with widening of the extra-axial spaces and ventricular dilatation. There are areas of decreased attenuation within the white matter tracts of the supratentorial brain, consistent with microvascular disease changes. Normal basal ganglia and thalami. Normal brainstem. There is mild cerebellar atrophy. There is no intracranial hemorrhage. There are no findings of an acute ischemic infarction. Atherosclerotic calcification of the vertebral arteries and cavernous portions of the internal carotid arteries bilaterally. Normal visualized paranasal sinuses. CT/Brain/Head without Contrast IMPRESSION: Chronic involutional changes of the brain. Electronically Signed: Milo Hughes MD at 12:50 EDT , Service support ,
--- NOTE | 2020-10-21 11:41 | EDS_ITS ---
HPI History of Present Illness Chief Complaint: General Illness Informant: patient and EMS Narrative Narrative: Patient sent in from nursing facility for evaluation for increasing confusion since yesterday. EMS reports temp of 100.1. Reports a urine was obtained at the facility and pending. Patient denies cough. Patient is on Eliquis for history of paroxysmal atrial fibrillation. History of coronary disease. Of note patient was seen 3 days ago for a fall head injury hip injury. Reviewing records she has CT of the head that was negative. Pelvic x-ray was negative. She states she has not ambulated since the fall and using a wheelchair. From the note appears she does ambulate at the facility prior to the fall. Patient is on oxygen. Reported had Covid back in January, has been vaccinated since. [facility] Medical History Atherosclerotic heart disease of [place] coronary artery without angina pectoris Carcinoma of lip Cellulitis of right leg Congestive heart failure (CHF) Diabetic ulcer of both lower extremities Essential hypertension GERD (gastroesophageal reflux disease) History of DVT (deep vein thrombosis) Hyperlipidemia Multiple sclerosis LAURITA (obstructive sleep apnea) Paroxysmal atrial fibrillation Peripheral vascular disease Trigeminal neuralgia Type 2 diabetes mellitus Ulcer of left lower extremity with fat layer exposed Ulcer of right lower extremity with fat layer exposed Venous insufficiency of both lower extremities Home Medications amiodarone 200 mg PO DAILY 04/09/18 [History Last Taken 10/21/20] duloxetine 60 mg PO DAILY 04/09/18 [History Last Taken 10/21/20] magnesium oxide 400 mg PO BID 04/09/18 [History Last Taken 10/21/20] potassium chloride 20 meq PO BID 08/19/18 [History Last Taken 10/21/20] hydralazine 50 mg PO TID 01/04/19 [History Last Taken 10/21/20] apixaban 5 mg PO BID 02/07/19 [History Last Taken 10/21/20] atorvastatin 20 mg PO QHS 08/04/19 [History Last Taken 10/20/20] carbamazepine 400 mg PO QHS 08/04/19 [History Last Taken 10/20/20] omeprazole 20 mg PO DAILY 08/04/19 [History Last Taken 10/21/20] albuterol sulfate 2.5 mg INHALATION Q2H PRN PRN vial.neb. 08/12/19 [Rx Last Taken Unknown] amlodipine 2.5 mg tablet 5 mg PO DAILY tab 09/21/20 [History Last Taken 10/21/20] gabapentin 300 mg capsule 300 mg PO TID cap 09/21/20 [History Last Taken 10/21/20] tramadol 50 mg tablet 50 mg PO Q8H PRN 09/21/20 [History Last Taken Unknown] Lactobacillus rhamnosus GG 1 cap PO DAILY 10/21/20 [History Last Taken 10/20/20] acetaminophen 650 mg PO TID 10/21/20 [History Last Taken 10/21/20] furosemide 20 mg PO DAILY 10/21/20 [History Last Taken 10/21/20] psyllium [Metamucil] 1 packet PO DAILY 10/21/20 [History Last Taken 10/20/20] Allergy/AdvReac Type Severity Reaction Status Date / Time codeine Allergy Unknown Hives Verified 10/21/20 11:30 cefazolin Allergy Rash Verified 10/21/20 11:30 ciprofloxacin [From Cipro] Allergy Hives Verified 10/21/20 11:30 ciprofloxacin HCl Allergy Hives Verified 10/21/20 11:30 [From Cipro] Latex, Natural Rubber Allergy Rash Verified 10/21/20 11:30 Penicillins [PCN] Allergy Hives Verified 10/21/20 11:30 vancomycin Allergy Angioedema Verified 10/21/20 11:30 adhesive tape AdvReac Rash Verified 10/21/20 11:30 Family History Father Heart disease Cancer prostate Mother Hypertension Cancer mets but unsure where to Breast cancer Brother Diabetes Hypertension Surgical History History of cataract surgery History of cholecystectomy History of hernia repair History of tonsillectomy and adenoidectomy History of total hysterectomy Presence of coronary angioplasty implant and graft (~08/29/12) S/P CABG (coronary artery bypass graft) (~01/02/11) Social History Smoking Status: Former smoker how long ago did patient quit smokin alcohol intake: never substance use type: does not use caffeine: Yes Type: coffee Number of servings: 1 additional social history: DOES NOT USE ASPIRIN DOES US IBUPROFEN ROS ROS ED Constitutional Constitutional ED: Denies chills, fever(s) or sweats Eyes Eyes: Denies change in vision ENT ENT ED: Denies dysphagia or sore throat Cardiovascular Cardiovascular: Denies chest pain, leg edema, palpitations or racing heartbeat Respiratory/Chest Respiratory/Chest: Denies cough, dyspnea or dyspnea on exertion Gastrointestinal Gastrointestinal: Denies abdominal pain, diarrhea, nausea or vomiting Genitourinary Genitourinary ED: Denies dysuria, hematuria or urinary frequency Musculoskeletal Musculoskeletal: Reports arthralgias and other Details: Left hip pain ; Denies back pain, extremity pain or neck pain Integumentary Denies rash or wounds Neurologic Neurologic: Denies headache(s), paresthesias or weakness EXAM Physical Exam Const Vital Signs: 10/21/20 11:26 10/21/20 11:30 10/21/20 12:15 Temperature 98.9 F 100.8 F H Temperature Source Oral Oral Pulse Rate 93 91 Respiratory Rate 20 H 20 H Respiratory Effort Normal Respiratory Pattern Tachypnea Blood Pressure 147/77 H 162/57 H Blood Pressure Mean 100 92 Pulse Ox 97 98 Oxygen Delivery Method Nasal Cannula Nasal Cannula Oxygen Flow Rate (L/min) 2 2 10/21/20 13:55 Temperature 100.0 F H Temperature Source Temporal Pulse Rate 91 Respiratory Rate 22 H Respiratory Effort Respiratory Pattern Blood Pressure 162/57 H Blood Pressure Mean 92 Pulse Ox 97 Oxygen Delivery Method Nasal Cannula Oxygen Flow Rate (L/min) 2 Positive well nourished and well developed Constitutional Narrative: Stable on oxygen. Nontoxic General Appearance ED: well developed and NAD HEENT Reports moist mucous membranes normocephalic and atraumatic Eyes PERRL, EOMs intact bilaterally and conjunctivae normal General Eye ED: Yes normal appearance of both eyes Neck no lymphadenopathy and supple General: Negative for tenderness Chest Wall Chest: Negative for tenderness Resp normal respiratory effort and normal air movement Effort and Inspection: symmetric chest movement; Negative for respiratory distress Cardio regular rate, regular rhythm and no murmurs Peripheral Pulses: pulses 2+ throughout GI normal to inspection, nondistended, normoactive bowel sounds and non-tender Palpation: Negative for guarding or rebound tenderness present Back/Spine no CVA tenderness and no thoracic nor lumbar tenderness Extremity Extremity Narrative: Left lower extremity: There is contusion on left lateral hip. Pain with extreme logroll externally. No shortening or rotation. General Extremety ED: Yes tenderness; Negative for edema General Extremity: Negative for edema Neuro no sensory deficits noted Neuro Narrative: Alert oriented to person and year, states she was at home. Sensorium / Orientation: awake and alert Skin no rashes or lesions noted and no wounds MDM MDM MDM Narrative Medical decision making narrative: Patient febrile on recheck. Sepsis protocol was initiated. She had mild confusion on exam. Blood pressure stable. CT scan negative chest x-ray negative. Labs noted white count of 16.3 lactic acid 1.1. Creatinine 1.6 mildly elevated from previous. Urine from catheterization positive for infection. She had multiple allergies, however cefazolin reaction was only a rash, others were hives to antibiotics typically used for treatment of UTIs. Will dose with Rocephin IV in the ED and monitor closely. I spoke with hospitalist Dr. Wayne, discussed patient's findings and antibiotic use also discussed patient's hip contusion. X-rays obtained negative however she has been nonambulatory since the fall. Further testing will be performed as an inpatient. Patient updated on the findings. Patient will be admitted to the medical floor with stable blood pressure. Patient's mental status did improve on reevaluation. Lab Data Attestation: I reviewed the patient's lab results. Labs: Laboratory Results - last 24 hr 10/21/20 10/21/20 10/21/20 11:56 11:56 11:56 WBC 16.3 H RBC 3.97 L Hgb 10.5 L Hct 36.2 L MCV 91.2 MCH 26.4 L MCHC 29.0 L RDW Std Deviation 51.9 H RDW Coeff of Carissa 15.6 H Plt Count 293 MPV 10.3 Immature Gran % (Auto) 0.900 Neut % (Auto) 81.9 H Lymph % (Auto) 6.7 L [place]ukes % (Auto) 10.1 H Eos % (Auto) 0.2 Baso % (Auto) 0.2 Absolute Neuts (auto) 13.4 H Absolute Lymphs (auto) 1.09 Nucleated RBC % 0 Differential Comment SCANNED Diff Path Review May foll Sodium 140 Potassium 4.0 Chloride 102 Carbon Dioxide 31.0 Anion Gap 7 BUN 20 H Creatinine 1.63 H Estim Creat Clear Calc 21.09 Est GFR (MDRD) Af Amer 39 L Est GFR (MDRD) Non-Af 33 L BUN/Creatinine Ratio 12.3 Glucose 164 H Lactic Acid 1.1 Calcium 9.0 Total Bilirubin 0.60 AST 14 L ALT 13 Alkaline Phosphatase 133 H Total Protein 6.8 Albumin 2.2 L Globulin 4.6 H Albumin/Globulin Ratio 0.5 L Urine Color Urine Clarity Urine pH Ur Specific [place] Urine Protein Urine Glucose (UA) Urine Ketones Urine Occult Blood Urine Nitrite Urine Bilirubin Urine Urobilinogen Ur Leukocyte Esterase Urine RBC Urine WBC Ur Squamous Epith Cells Urine Bacteria Urine Mucus 10/21/20 12:11 WBC RBC Hgb Hct MCV MCH MCHC RDW Std Deviation RDW Coeff of Carissa Plt Count MPV Immature Gran % (Auto) Neut % (Auto) Lymph % (Auto) [place]ukes % (Auto) Eos % (Auto) Baso % (Auto) Absolute Neuts (auto) Absolute Lymphs (auto) Nucleated RBC % Differential Comment Diff Path Review Sodium Potassium Chloride Carbon Dioxide Anion Gap BUN Creatinine Estim Creat Clear Calc Est GFR (MDRD) Af Amer Est GFR (MDRD) Non-Af BUN/Creatinine Ratio Glucose Lactic Acid Calcium Total Bilirubin AST ALT Alkaline Phosphatase Total Protein Albumin Globulin Albumin/Globulin Ratio Urine Color Yellow Urine Clarity Cloudy Urine pH 5.0 Ur Specific [place] 1.015 Urine Protein 30 H Urine Glucose (UA) Normal Urine Ketones Negative Urine Occult Blood 150 H Urine Nitrite Negative Urine Bilirubin Negative Urine Urobilinogen Normal Ur Leukocyte Esterase 500 H Urine RBC 0-5 SEEN Urine WBC >100 SEEN Ur Squamous Epith Cells 0 SEEN Urine Bacteria 1+ Urine Mucus 0 SEEN Radiography Chest X-Ray - ED: Read by ED Physician and Read by Radiologist Diagnostic Testing: Radiology Impression Brain CT 10/21/20 11:39 IMPRESSION: Chronic involutional changes of the brain. Electronically Signed: Milo Hughes MD at 12:50 EDT , Service support , Chest X-Ray 10/21/20 11:39 IMPRESSION: Status post CABG. Borderline cardiomegaly. Electronically Signed: Milo Hughes MD at 12:59 EDT , Service support , Hip/Pelvis X-Ray 10/21/20 11:39 IMPRESSION: Degenerative changes. No fracture is seen. 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
[2020-10-21 12:30] LABS: Absolute Lymphocyte Count 1.09 X10^3/uL (0.83-4.51); Absolute Neutrophil Count 13.4 X10^3/uL (2.0-7.7); Basophil# 0.04 X10^3/uL; Basophil% 0.2 % (0-1); Eosinophil# 0.03 X10^3/uL; Eosinophils% 0.2 % (0-5); Hematocrit 36.2 % (37-47); Hemoglobin 10.5 g/dL (12.0-15.0); Lymphocyte # 1.09 X10^3/ul (0.83-4.51); Lymphocyte % 6.7 % (19-41); Mean Corpuscular Hgb 26.4 pg (27.0-32.0); Mean Corpuscular Volume 91.2 fL (81-99); Mean Platelet Vol. 10.3 fl (6.2-12.0); Monocyte# 1.65 X10^3/uL; Monocyte% 10.1 % (0-10); NRBC Flagged by Analyzer 0 % (0-5); Neutrophil # 13.35 X10^3/uL (2.7-7.7); Neutrophil % 81.9 % (47-70); POSITIVE DIFFERENTIAL YES; Platelet Count 293 K/mm3 (150-450); RBC Distribution Width CV 15.6 % (11.6-14.6); RBC Distribution Width SD 51.9 fl (35.1-43.9); Red Blood Count 3.97 M/mm3 (4.2-5.4); White Blood Count 16.3 K/mm3 (4.4-11.0)
[2020-10-21 12:30] LABS: Mucous, Urine 0 SEEN /hpf (<or=2+); Squamous Epithelial Cells - UA 0 SEEN /hpf (5-10)
[2020-10-21 12:40] LABS: Differential Indicated SCAN CRITERIA MET
[2020-10-21 12:43] LABS: Lactic Acid 1.1 mmol/L (0.4-1.9)
[2020-10-21 12:45] LABS: Color, Urine Yellow (Yellow); Glucose, Dipstick Normal (Normal); Ketone-Dipstick Negative (Negative); Leukocyte Esterase-Dipstick 500 /ul (Negative); Nitrite-Dipstick Negative (Negative); Occult Blood-Urine 150 /ul (Negative); Protein-Dipstick 30 mg/dl (Negative); Specific Gravity, Urine 1.015 (1.002-1.030); Urine Bilirubin Dipstick Negative (Negative); Urine Clarity Cloudy (Clear); Urine Urobilinogen Normal (Normal)
[2020-10-21 12:59] LABS: ALB/GLOB Ratio 0.5 RATIO (0.9-2.4); AST(SGOT) 14 U/L (15-37); Alanine Aminotransfer ALT/SGPT 13 U/L (13-56); Albumin, Serum 2.2 g/dL (3.2-5.0); Alkaline Phosphatase 133 U/L (45-117); Anion Gap 7 (5-15); BUN 20 mg/dL (7-18); BUN/Creat Ratio 12.3 RATIO (10-20); Chloride 102 mmol/L (98-107); Creatinine, Serum 1.63 mg/dL (0.55-1.02); EST Glomerular Filtration Rate 33 mL/min (>60); Est Glom Filt Rate - Afr Amer 39 mL/min (>60); Estimated Creatinine Clearance 21.09 ml/min; Globulin 4.6 g/dL (2.2-4.2); Glucose 164 mg/dL (74-106); Protein, Total 6.8 g/dL (6.4-8.2); Sodium Level 140 mmol/L (136-145)
[2020-10-21 13:12] LABS: Differential Comment SCANNED
[2020-10-21 13:23] LABS: Bacteria 1+ /hpf (None Seen); Red Blood Cells-Urine 0-5 SEEN /hpf (0-5); White Blood Cells >100 SEEN /hpf (0-5)
[2020-10-21] MEDS: Ceftriaxone 1 GM/50 ML BAG IV (13:53)
[2020-10-21] MEDS: Acetaminophen 500 MG Tablet 1000 MG PO (13:53)
--- NOTE | 2020-10-21 16:31 | HP.PCM_ITS ---
HPI - General General Date of Admission: 10/21/20 HPI Narrative SINA VIZCARRA, is a 75 F who presents with several days history of feeling unwell, lethargy, fever and disorientation and change in mental status. Had a fall 3 days ago and x-rays of her hips did not show any fractures. Patient also admits to frequency and dysuria and urgency. Presented to the hospital on urinalysis noted to be abnormal. [facility] Medical History Atherosclerotic heart disease of [place] coronary artery without angina pectoris Carcinoma of lip Cellulitis of right leg Congestive heart failure (CHF) Diabetic ulcer of both lower extremities Essential hypertension GERD (gastroesophageal reflux disease) History of DVT (deep vein thrombosis) Hyperlipidemia Multiple sclerosis LAURITA (obstructive sleep apnea) Paroxysmal atrial fibrillation Peripheral vascular disease Trigeminal neuralgia Type 2 diabetes mellitus Ulcer of left lower extremity with fat layer exposed Ulcer of right lower extremity with fat layer exposed Venous insufficiency of both lower extremities Home Medications amiodarone 200 mg PO DAILY 04/09/18 [History Last Taken 10/21/20] duloxetine 60 mg PO DAILY 04/09/18 [History Last Taken 10/21/20] magnesium oxide 400 mg PO BID 04/09/18 [History Last Taken 10/21/20] potassium chloride 20 meq PO BID 08/19/18 [History Last Taken 10/21/20] hydralazine 50 mg PO TID 01/04/19 [History Last Taken 10/21/20] apixaban 5 mg PO BID 02/07/19 [History Last Taken 10/21/20] atorvastatin 20 mg PO QHS 08/04/19 [History Last Taken 10/20/20] carbamazepine 400 mg PO QHS 08/04/19 [History Last Taken 10/20/20] omeprazole 20 mg PO DAILY 08/04/19 [History Last Taken 10/21/20] albuterol sulfate 2.5 mg INHALATION Q2H PRN PRN vial.neb. 08/12/19 [Rx Last Taken Unknown] amlodipine 2.5 mg tablet 5 mg PO DAILY tab 09/21/20 [History Last Taken 10/21/20] gabapentin 300 mg capsule 300 mg PO TID cap 09/21/20 [History Last Taken 10/21/20] tramadol 50 mg tablet 50 mg PO Q8H PRN 09/21/20 [History Last Taken Unknown] Lactobacillus rhamnosus GG 1 cap PO DAILY 10/21/20 [History Last Taken 10/20/20] acetaminophen 650 mg PO TID 10/21/20 [History Last Taken 10/21/20] furosemide 20 mg PO DAILY 10/21/20 [History Last Taken 10/21/20] psyllium [Metamucil] 1 packet PO DAILY 10/21/20 [History Last Taken 10/20/20] Allergy/AdvReac Type Severity Reaction Status Date / Time codeine Allergy Unknown Hives Verified 10/21/20 11:30 cefazolin Allergy Rash Verified 10/21/20 11:30 ciprofloxacin [From Cipro] Allergy Hives Verified 10/21/20 11:30 ciprofloxacin HCl Allergy Hives Verified 10/21/20 11:30 [From Cipro] Latex, Natural Rubber Allergy Rash Verified 10/21/20 11:30 Penicillins [PCN] Allergy Hives Verified 10/21/20 11:30 vancomycin Allergy Angioedema Verified 10/21/20 11:30 adhesive tape AdvReac Rash Verified 10/21/20 11:30 Family History Father Heart disease Cancer prostate Mother Hypertension Cancer mets but unsure where to Breast cancer Brother Diabetes Hypertension Surgical History History of cataract surgery History of cholecystectomy History of hernia repair History of tonsillectomy and adenoidectomy History of total hysterectomy Presence of coronary angioplasty implant and graft (~08/29/12) S/P CABG (coronary artery bypass graft) (~01/02/11) Social History Smoking Status: Former smoker how long ago did patient quit smokin alcohol intake: never substance use type: does not use caffeine: Yes Type: coffee Number of servings: 1 additional social history: DOES NOT USE ASPIRIN DOES US IBUPROFEN ROS ROS Narrative Denies any chest pain or shortness of breath. Denies any abdominal pain or nausea vomiting. Has lower extremity swelling that is chronic. All other systems reviewed and essentially negative. Vital Signs Vital Signs Vital Signs: 10/21/20 11:26 10/21/20 11:30 10/21/20 12:15 Temperature 37.2 C 38.2 C H Temperature Source Oral Oral Pulse Rate 93 91 Respiratory Rate 20 H 20 H Respiratory Effort Normal Respiratory Pattern Tachypnea Blood Pressure 147/77 H 162/57 H Blood Pressure Mean 100 92 Pulse Ox 97 98 Oxygen Delivery Method Nasal Cannula Nasal Cannula Oxygen Flow Rate (L/min) 2 2 10/21/20 13:55 10/21/20 16:17 Temperature 37.8 C H 37.1 C Temperature Source Temporal Oral Pulse Rate 91 82 Respiratory Rate 22 H 21 H Respiratory Effort Respiratory Pattern Blood Pressure 162/57 H 143/60 H Blood Pressure Mean 92 87 Pulse Ox 97 97 Oxygen Delivery Method Nasal Cannula Nasal Cannula Oxygen Flow Rate (L/min) 2 2 Weight Weight: 103 kg Body Mass Index (BMI) 44.3 Physical Exam Narrative General. Elderly man, ill-appearing, weak appearing, morbidly obese. HEENT. Oral mucosa is dry. Neck. Neck supple. No jugular venous distention. Heart. 1st and 2nd heart sounds heard. No murmurs. Lungs. Expiratory wheezing bilaterally. Mildly dyspneic. Abdomen. Obese. Moves with respiration, nontender. Extremities. 1-2+ pitting edema in both lower extremities. 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 Conscious and alert. Weak appearing though. Cranial nerves II through XII grossly intact. Skin. Loss of turgor slightly dry. Results Lab / Micro Data Result Diagrams: 10/21/20 11:56 10/21/20 11:56 Labs: Laboratory Results - last 24 hr 10/21/20 11:56: WBC 16.3 H, RBC 3.97 L, Hgb 10.5 L, Hct 36.2 L, MCV 91.2, MCH 26.4 L, MCHC 29.0 L, RDW Std Deviation 51.9 H, RDW Coeff of Carissa 15.6 H, Plt Count 293, MPV 10.3, Immature Gran % (Auto) 0.900, Neut % (Auto) 81.9 H, Lymph % (Auto) 6.7 L, [place] % (Auto) 10.1 H, Eos % (Auto) 0.2, Baso % (Auto) 0.2, Absolute Neuts (auto) 13.4 H, Absolute Lymphs (auto) 1.09, Nucleated RBC % 0, Differential Comment SCANNED, Diff Path Review June foll 10/21/20 11:56: Sodium 140, Potassium 4.0, Chloride 102, Carbon Dioxide 31.0, Anion Gap 7, BUN 20 H, Creatinine 1.63 H, Estim Creat Clear Calc 21.09, Est GFR (MDRD) Af Amer 39 L, Est GFR (MDRD) Non-Af 33 L, BUN/Creatinine Ratio 12.3, Glucose 164 H, Calcium 9.0, Total Bilirubin 0.60, AST 14 L, ALT 13, Alkaline Phosphatase 133 H, Total Protein 6.8, Albumin 2.2 L, Globulin 4.6 H, Albumin/Globulin Ratio 0.5 L 10/21/20 11:56: Lactic Acid 1.1 10/21/20 12:11: Urine Color Yellow, Urine Clarity Cloudy, Urine pH 5.0, Ur Specific [place] 1.015, Urine Protein 30 H, Urine Glucose (UA) Normal, Urine Ketones Negative, Urine Occult Blood 150 H, Urine Nitrite Negative, Urine Bilirubin Negative, Urine Urobilinogen Normal, Ur Leukocyte Esterase 500 H, Urine RBC 0-5 SEEN, Urine WBC >100 SEEN, Ur Squamous Epith Cells 0 SEEN, Urine Bacteria 1+, Urine Mucus 0 SEEN Micro: Microbiology 10/21/20 11:50 Nasal Secretion SARS-CoV-2 Antigen (Rapid) - Final Radiology Impression Brain CT 10/21/20 11:39 IMPRESSION: Chronic involutional changes of the brain. Electronically Signed: Milo Hughes MD at 12:50 EDT , Service support , Chest X-Ray 10/21/20 11:39 IMPRESSION: Status post CABG. Borderline cardiomegaly. Electronically Signed: Milo Hughes MD at 12:59 EDT , Service support , Hip/Pelvis X-Ray 10/21/20 11:39 IMPRESSION: Degenerative changes. No fracture is seen. Electronically Signed: Milo Hughes MD at 12:52 EDT , Service support , Assessment & Plan Assessment/Plan (1) Sepsis: PLAN: Most likely secondary to urinary tract infection. Follow-up on blood and urine cultures. IV antibiotics with Rocephin. (2) Urinary tract infection: PLAN: Follow-up on urine cultures. Empiric treatment with IV Rocephin. Multiple drug allergies. Will monitor. (3) Acute kidney injury: PLAN: Most likely secondary to sepsis underlying infection and volume dep letion. Will rehydrate gently. Hold Lasix. (4) Left hip pain: PLAN: Need to rule out occult left hip fracture. We will do a CT of the pelvis. Physical and occupational therapy to see and evaluate. (5) Diastolic CHF: QUALIFIERS: Heart failure chronicity: chronic Qualified Code(s): I50.32 - Chronic diastolic (congestive) heart failure PLAN: Not in exacerbation. Monitor closely. (6) Essential hypertension: PLAN: Continue antihypertensives. (7) Atherosclerotic heart disease of [place] coronary artery without angina pectoris: (8) Paroxysmal atrial fibrillation: PLAN: Continue Eliquis. Charges/Coding Visit Charges Inpatient E&M: 41498 Init Hosp L3
--- NOTE | 2020-10-21 16:35 | CT_ITS ---
STUDY: CT PELVIS WITHOUT CONTRAST REASON FOR EXAM: Female, 75 years old. Persistent pain after recent fall RADIATION DOSAGE (If Supplied By Facility): CTDIvol = ( 35.77 ) mGy, DLP = ( 1331.16 ) mGycm TECHNIQUE: Transaxial imaging of the pelvis was performed with oral contrast, and without intravenous administration of contrast material. Multiplanar coronal and sagittal images were reformatted. Individualized dose optimization techniques were used for this CT. COMPARISON: None. FINDINGS: The bones are diffusely demineralized. There has been previous surgery to stabilize and reduce a right femoral fracture. Hardware is intact and free of complication, the fracture has healed. Age consistent bilateral hip and SI joint arthrosis. No demonstrated fracture or suspicious osseous lesion. The soft tissues show atherosclerotic calcifications in the iliac arteries. Bladder is unremarkable. No free pelvic fluid or air. There is induration of the soft tissues lateral to the proximal left femur suggestive of hematoma. CT/Pelvis without IV Contrast IMPRESSION: Diffuse osteopenia without demonstrated fracture or suspicious osseous lesion Diffuse induration of the subcutaneous fat and soft tissue swelling lateral to the left femur suggests hematoma likely from a recent fall Surgical hardware in the right femur intact and free of complication No suspicious pelvic fluid or air and no suspicious adenopathy. Diffuse atherosclerosis Electronically Signed: Zan Quezada MD at 16:56 EDT , Service support ,
[2020-10-21] MEDS: 0.9% Normal Saline 1,000 ML 100 ML IV (18:33)
[2020-10-21] MEDS: hydrALAZINE 50 MG Tablet PO (21:58)
[2020-10-21] MEDS: APIXABAN 5 MG TABLET PO (21:59)
[2020-10-21] MEDS: Atorvastatin Calcium 20 MG Tablet PO (21:59)
[2020-10-21] MEDS: carBAMazepine 200 MG Tablet 400 MG PO (22:00)
[2020-10-21] MEDS: Gabapentin 300 MG Capsule PO (22:00)
[2020-10-21] MEDS: Acetaminophen 325 MG Tablet 650 MG PO (22:00)
[2020-10-21] MEDS: Magnesium Chloride 64 MG Delay Rel.Tablet 128 MG PO (22:00)
[2020-10-22] VITALS (16 sets, daily range): BP systolic 121–153; BP diastolic 47–73; PULSE 84–103; RESP 16–18; TEMP 36.8–37.3; O2SAT 95–100
[2020-10-22] MEDS: 0.9% Normal Saline 1,000 ML 100 ML IV ×2 (05:09→13:32)
--- NOTE | 2020-10-22 05:59 | PCS.PANDOC ---
PANDEMIC DOCUMENTATION INITIATED: Date: 09/20/2020 Time: 190
[2020-10-22 06:11] LABS: Absolute Lymphocyte Count 1.02 X10^3/uL (0.83-4.51); Absolute Neutrophil Count 17.2 X10^3/uL (2.0-7.7); Basophil# 0.03 X10^3/uL; Basophil% 0.1 % (0-1); Eosinophil# 0.04 X10^3/uL; Eosinophils% 0.2 % (0-5); Hematocrit 29.3 % (37-47); Hemoglobin 8.6 g/dL (12.0-15.0); Lymphocyte # 1.02 X10^3/ul (0.83-4.51); Lymphocyte % 4.9 % (19-41); Mean Corp Hgb Conc 29.4 g/dL (32-36); Mean Corpuscular Hgb 26.5 pg (27.0-32.0); Mean Corpuscular Volume 90.2 fL (81-99); Mean Platelet Vol. 10.1 fl (6.2-12.0); Monocyte# 2.23 X10^3/uL; Monocyte% 10.8 % (0-10); NRBC Flagged by Analyzer 0 % (0-5); Neutrophil # 17.23 X10^3/uL (2.7-7.7); Neutrophil % 83.1 % (47-70); POSITIVE DIFFERENTIAL YES; Platelet Count 248 K/mm3 (150-450); RBC Distribution Width CV 15.4 % (11.6-14.6); RBC Distribution Width SD 51.6 fl (35.1-43.9); Red Blood Count 3.25 M/mm3 (4.2-5.4); White Blood Count 20.7 K/mm3 (4.4-11.0)
[2020-10-22 06:16] LABS: Differential Indicated SCAN CRITERIA MET
[2020-10-22] MEDS: Acetaminophen 325 MG Tablet 650 MG PO ×3 (06:34→22:38)
[2020-10-22] MEDS: hydrALAZINE 50 MG Tablet PO ×3 (06:34→22:39)
[2020-10-22] MEDS: Gabapentin 300 MG Capsule PO ×2 (06:35→13:26)
[2020-10-22 06:41] LABS: ALB/GLOB Ratio 0.4 RATIO (0.9-2.4); AST(SGOT) 11 U/L (15-37); Alanine Aminotransfer ALT/SGPT 11 U/L (13-56); Albumin, Serum 1.7 g/dL (3.2-5.0); Alkaline Phosphatase 114 U/L (45-117); Anion Gap 6 (5-15); BUN 21 mg/dL (7-18); BUN/Creat Ratio 16.2 RATIO (10-20); Calcium,Total 8.6 mg/dL (8.5-10.1); Chloride 107 mmol/L (98-107); EST Glomerular Filtration Rate 42 mL/min (>60); Est Glom Filt Rate - Afr Amer 51 mL/min (>60); Estimated Creatinine Clearance 26.44 ml/min; Globulin 4.1 g/dL (2.2-4.2); Glucose 146 mg/dL (74-106); Magnesium 1.9 mg/dL (1.6-2.6); Phosphorus 2.8 mg/dL (2.5-4.9); Protein, Total 5.8 g/dL (6.4-8.2); Sodium Level 140 mmol/L (136-145)
[2020-10-22 06:46] LABS: Anisocytosis RARE; Differential Comment SCANNED; Macrocytosis RARE; Polychromasia RARE
[2020-10-22] MEDS: Amiodarone 200 MG Tablet PO (09:31)
[2020-10-22] MEDS: APIXABAN 5 MG TABLET PO ×2 (09:31→22:37)
[2020-10-22] MEDS: amLODIPine 5 MG Tablet PO (09:31)
[2020-10-22] MEDS: Pantoprazole Sodium 20 MG Tablet PO (09:31)
[2020-10-22] MEDS: DULoxetine Hcl 60 MG Capsule PO (09:31)
[2020-10-22] MEDS: Magnesium Chloride 64 MG Delay Rel.Tablet 128 MG PO ×2 (09:32→22:48)
[2020-10-22] MEDS: Psyllium 1 PACKET PO (09:32)
--- NOTE | 2020-10-22 10:27 | CASEMGMT ---
Patient is from [facility] [place]. JAGDEEP spoke with Quiana at [facility] and patient is a residential resident and she can return whenever she is ready. JAGDEEP called patient's son/POA to confirm her plan is to return to [facility] at d/c. JAGDEEP left him a voice mail. JAGDEEP faxed clinicals to [facility]. JAGDEEP also placed a green sheet on chart for d/c over the weekend. She will need a new COVID test if not discharged before Sunday10-24-20 at 1150a. Plan: d/c back to [facility] under intermediate level of care. Mariaa Mckinney WEAVING PROFESSOR PRAVIN
[2020-10-22 14:39] LABS: Pathologist Review Reviewed
[2020-10-22 14:46] LABS: Pathologist Review Reviewed
--- NOTE | 2020-10-22 14:46 | CHAPLAIN ---
Type of Pastoral Visit _x__ Initial Visit ___ Follow-up Visit ___ On-call Visit ___ General Patient Visit ___ Spiritual Assessment ___ Family Conference ___ Bereavement ___ Rapid Response ___ Code Blue ___ Other (describe below) Pastoral Care Referral From _x__ Patient ___ Family ___ Nurse ___ Physician ___ Retort Unloader ___ Surgical Garment Inspector ___ Other (describe below) Sacrament/Intervention _x__ Active listening ___ Anointing ___ Yazidism ___ Bereavement ___ Communion ___ Aminah exploration ___ ___ Life review _x__ Prayer ___ Reconciliation ___ Sacrament of Sick _x__ Supportive presence ___ Wedding ___ Other (describe below) Pastoral Comments patient is napping in the chair but awakens easily; pt mumbles some but is able to answer most questions; pt expresses thankfulness for visit and prayer
--- NOTE | 2020-10-22 15:58 | PN.HOSP_ITS ---
Subjective Subjective Feels well. Objective Data Objective Data Vital Signs: Vital Signs Temp Pulse Resp BP Pulse Ox 36.9 C 88 16 121/54 H 96 10/22/20 15:23 10/22/20 15:23 10/22/20 15:23 10/22/20 15:23 10/22/20 15:23 Oxygen Flow Rate (L/min) 2 Oxygen Delivery Method Nasal Cannula Weight: 103.4 kg Body Mass Index (BMI) 44.5 Intake & Output: Intake and Output for Last 24 Hours 10/20/20 10/21/20 10/22/20 23:59 23:59 23:59 Intake Total 2288.33 / 2288.33 Balance 2288.33 / 2288.33 Lab / Micro Data Result Diagrams: 10/22/20 05:50 10/22/20 05:50 Labs: Laboratory Results - last 24 hr 10/21/20 11:56: Diff Path Review Reviewed 10/22/20 05:50: WBC 20.7 H, RBC 3.25 L, Hgb 8.6 L, Hct 29.3 L, MCV 90.2, MCH 26.5 L, MCHC 29.4 L, RDW Std Deviation 51.6 H, RDW Coeff of Carissa 15.4 H, Plt Count 248, MPV 10.1, Immature Gran % (Auto) 0.900, Neut % (Auto) 83.1 H, Lymph % (Auto) 4.9 L, [place] % (Auto) 10.8 H, Eos % (Auto) 0.2, Baso % (Auto) 0.1, Absolute Neuts (auto) 17.2 H, Absolute Lymphs (auto) 1.02, Nucleated RBC % 0, Differential Comment SCANNED, Diff Path Review Reviewed, Polychromasia RARE, Anisocytosis RARE, Macrocytosis RARE 10/22/20 05:50: Sodium 140, Potassium 4.0, Chloride 107, Carbon Dioxide 27.0, Anion Gap 6, BUN 21 H, Creatinine 1.30 H, Estim Creat Clear Calc 26.44, Est GFR (MDRD) Af Amer 51 L, Est GFR (MDRD) Non-Af 42 L, BUN/Creatinine Ratio 16.2, Glucose 146 H, Calcium 8.6, Phosphorus 2.8, Magnesium 1.9, Total Bilirubin 0.50, AST 11 L, ALT 11 L, Alkaline Phosphatase 114, Total Protein 5.8 L, Albumin 1.7 L , Globulin 4.1, Albumin/Globulin Ratio 0.4 L Micro: Microbiology 10/21/20 12:11 Urine Catheter - Catheter Urine Culture - Preliminary Presumptive E. coli 10/21/20 11:56 Blood Culture (Wb) - Anticubital Right Blood Culture - Pr eliminary 10/21/20 11:50 Nasal Secretion SARS-CoV-2 Antigen (Rapid) - Final Radiography Diagnostic Testing: Radiology Impression Pelvis CT 10/21/20 16:35 IMPRESSION: Diffuse osteopenia without demonstrated fracture or suspicious osseous lesion Diffuse induration of the subcutaneous fat and soft tissue swelling lateral to the left femur suggests hematoma likely from a recent fall Surgical hardware in the right femur intact and free of complication No suspicious pelvic fluid or air and no suspicious adenopathy. Diffuse atherosclerosis Electronically Signed: Zan Quezada MD at 16:56 EDT , Service support , Physical Exam Const alert Resp normal respiratory effort, no retractions, no use of accessory muscles and clear to auscultation bilaterally Cardio regular rate, regular rhythm, S1 normal heart sound and S2 normal heart sound GI normal to inspection, nondistended, normoactive bowel sounds, soft to palpation, non-tender and non-distended Extremity Extremity Narrative: swelling over left hip Assessment & Plan Assessment/Plan (1) Acute kidney injury: (2) Urinary tract infection: QUALIFIERS: Urinary tract infection type: acute cystitis Hematuria presence: without hematuria Qualified Code(s): N30.00 - Acute cystitis without hematuria PLAN: 1. NAYA improving HLIV 2. UTI qSOFA 1, therefore sepsis ruled out on CTX UCx showing E. coli, sensitivites pending 3. Left hip hematoma pelvic CT did not show fxr. supportive mgmt 4. Chronic HFpEF resume furosemide 5. pAfib on apixaban and amiodarone 6. HTN amlodipine 7. Debility back to ECF when medically ready 8. disposition plan for dc in 1-2 days. Charges/Coding Visit Charges Inpatient E&M: 36845 Subs Hosp L2
[2020-10-22] MEDS: carBAMazepine 200 MG Tablet 400 MG PO (22:39)
[2020-10-22] MEDS: Atorvastatin Calcium 20 MG Tablet PO (22:41)
[2020-10-23] VITALS (11 sets, daily range): BP systolic 124–151; BP diastolic 51–89; PULSE 79–84; RESP 16–17; TEMP 36.2–37.1; O2SAT 93–98
[2020-10-23] MEDS: Acetaminophen 325 MG Tablet 650 MG PO ×2 (06:05→14:07)
[2020-10-23] MEDS: hydrALAZINE 50 MG Tablet PO ×2 (06:05→14:06)
[2020-10-23 06:33] LABS: Absolute Lymphocyte Count 1.48 X10^3/uL (0.83-4.51); Basophil# 0.02 X10^3/uL; Basophil% 0.1 % (0-1); Eosinophil# 0.19 X10^3/uL; Eosinophils% 1.3 % (0-5); Hematocrit 31.3 % (37-47); Lymphocyte # 1.48 X10^3/ul (0.83-4.51); Lymphocyte % 10.5 % (19-41); Mean Corp Hgb Conc 28.8 g/dL (32-36); Mean Corpuscular Hgb 26.5 pg (27.0-32.0); Mean Corpuscular Volume 92.1 fL (81-99); Mean Platelet Vol. 10.8 fl (6.2-12.0); Monocyte# 1.26 X10^3/uL; Monocyte% 8.9 % (0-10); NRBC Flagged by Analyzer 0 % (0-5); Neutrophil # 11.02 X10^3/uL (2.7-7.7); Neutrophil % 78.4 % (47-70); Platelet Count 258 K/mm3 (150-450); RBC Distribution Width CV 15.4 % (11.6-14.6); RBC Distribution Width SD 52.4 fl (35.1-43.9); White Blood Count 14.1 K/mm3 (4.4-11.0)
[2020-10-23 07:12] LABS: Anion Gap 5 (5-15); BUN 23 mg/dL (7-18); BUN/Creat Ratio 18.4 RATIO (10-20); Calcium,Total 8.9 mg/dL (8.5-10.1); Chloride 107 mmol/L (98-107); Creatinine, Serum 1.25 mg/dL (0.55-1.02); EST Glomerular Filtration Rate 44 mL/min (>60); Est Glom Filt Rate - Afr Amer 54 mL/min (>60); Glucose 89 mg/dL (74-106); Sodium Level 139 mmol/L (136-145)
[2020-10-23] MEDS: amLODIPine 5 MG Tablet PO (10:07)
[2020-10-23] MEDS: Pantoprazole Sodium 20 MG Tablet PO (10:07)
[2020-10-23] MEDS: APIXABAN 5 MG TABLET PO (10:07)
[2020-10-23] MEDS: Amiodarone 200 MG Tablet PO (10:07)
[2020-10-23] MEDS: Psyllium 1 PACKET PO (10:08)
[2020-10-23] MEDS: DULoxetine Hcl 60 MG Capsule PO (10:11)
[2020-10-23] MEDS: 0.9% Saline Lock 10 ML Syringe IV (10:24)
[2020-10-23] MEDS: Magnesium Chloride 64 MG Delay Rel.Tablet 128 MG PO (12:36)
--- NOTE | 2020-10-23 13:53 | PCM.TXEXTCAR ---
Diet 10/22/20 14:21 Diet: Cardiac: Calorie-Controlled Dietary Modifications:: Sodium Restricted Is pt able to select menu?: Yes Fluid restriction:: 1500 mL How many daily calories?: 1500 calorie Routine Orders/Code Status Routine Lab Work: CBC and BMP Therapies Weight Bearing: Full weight bearing Physical Therapy: Eval and Treat Occupational Therapy: Eval and Treat Problem/Diagnosis (1) Acute kidney injury: Status: Acute (2) Urinary tract infection: Status: Acute Allergies/Procedures Done in Hospital Allergies codeine Allergy (Unknown, Verified 10/21/20 11:30) Hives cefazolin Allergy (Verified 10/21/20 11:30) Rash ciprofloxacin [From Cipro] Allergy (Verified 10/21/20 11:30) Hives ciprofloxacin HCl [From Cipro] Allergy (Verified 10/21/20 11:30) Hives Tolerated Levaquin therapy despite allergy Latex, Natural Rubber Allergy (Verified 10/21/20 11:30) Rash Penicillins [PCN] Allergy (Verified 10/21/20 11:30) Hives vancomycin Allergy (Verified 10/21/20 11:30) Angioedema adhesive tape Adverse Reaction (Verified 10/21/20 11:30) Rash Procedures: None Type of Care/Length of Stay Estimated LOS: More Than 30 Days Type of Care Needed: Longterm/Assisted Living Rehab Potential: Fair Prognosis: Fair Additional Orders/Day of Discharge Day of Discharge: 10/23/20 Dietary and Speech Recommendations Dietitian Recommendations/Changes: Will change diet to 1500 calorie Cardiac / Sodium Restricted diet w/ 1500 ml Fluid restriction/day Discharge Plan Admission Admit Date/Time: 10/21/20 16:18 Primary Reason for Your Visit: UTI. NAYA Attending Provider: Douglas Bowman Primary Care Provider: Octaviano Franco Chi Discharge Orders/Prescriptions Prescriptions: New nitrofurantoin monohyd/m-cryst [Macrobid] 100 mg capsule 100 mg PO BID Qty: 10 RF: 0 Continued amlodipine 2.5 mg tablet 5 mg PO DAILY RF: 0 amiodarone 200 MG tablet 200 mg PO DAILY RF: 0 magnesium oxide 400 MG tablet 400 mg PO BID RF: 0 duloxetine 60 MG capsule,delayed release(DR/EC) 60 mg PO DAILY RF: 0 hydralazine 50 MG tablet 50 mg PO TID RF: 0 apixaban 2.5 MG tablet 5 mg PO BID RF: 0 atorvastatin 20 MG tablet 20 mg PO QHS RF: 0 omeprazole 20 MG capsule 20 mg PO DAILY RF: 0 carbamazepine 200 MG tablet 400 mg PO QHS RF: 0 albuterol sulfate 2.5 MG/3 ML solution for nebulization 2.5 mg inhalation Q2H PRN PRN (Reason: SOB/Wheezing) RF: 0 psyllium Packet 1 packet PO DAILY RF: 0 Lactobacillus rhamnosus GG 10 billion cell Capsule 1 cap PO DAILY RF: 0 acetaminophen 325 MG tablet 650 mg PO TID RF: 0 Discontinued gabapentin 300 mg capsule 300 mg PO TID RF: 0 tramadol 50 mg tablet 50 mg PO Q8H PRN (Reason: Pain) RF: 0 potassium chloride 20 MEQ tablet,ER particles/crystals 20 meq PO BID RF: 0 furosemide 20 mg tablet 20 mg PO DAILY RF: 0 Referrals / Follow Up: Octaviano Franco Chi, MD [Primary Care Provider] - Within 1 Week Disposition Disposition (needs filled in before D/C Order can be placed): NonSkilled NH/Intermed Care
--- NOTE | 2020-10-23 14:00 | DS.PCM_ITS ---
Providers Date of Admission: 10/21/20 Primary Care Physician: Dr. Octaviano Franco MD Reason For Visit: UTI Diagnosis Discharge Diagnosis (1) Acute kidney injury: Status: Acute Code(s): N17.9 - Acute kidney failure, unspecified (2) Urinary tract infection: Status: Acute Code(s): N39.0 - Urinary tract infection, site not specified Qualifiers: Urinary tract infection type: acute cystitis Hematuria presence: without hematuria Qualified Code(s): N30.00 - Acute cystitis without hematuria Medications at Discharge Home Medications amiodarone 200 mg PO DAILY 04/09/18 duloxetine 60 mg PO DAILY 04/09/18 magnesium oxide 400 mg PO BID 04/09/18 hydralazine 50 mg PO TID 01/04/19 apixaban 5 mg PO BID 02/07/19 atorvastatin 20 mg PO QHS 08/04/19 carbamazepine 400 mg PO QHS 08/04/19 omeprazole 20 mg PO DAILY 08/04/19 albuterol sulfate 2.5 mg INHALATION Q2H PRN PRN vial.neb. 08/12/19 amlodipine 2.5 mg tablet 5 mg PO DAILY tab 09/21/20 Lactobacillus rhamnosus GG 1 cap PO DAILY 10/21/20 acetaminophen 650 mg PO TID 10/21/20 psyllium 1 packet PO DAILY 10/21/20 nitrofurantoin monohyd/m-cryst [Macrobid] 100 mg PO BID #10 cap 10/23/20 Hospital Course Operations None Procedures None Summary of Care Provided Minutes Spent on Discharge: 32 Hospital Course: 1. NAYA improving HLIV 2. UTI qSOFA 1, therefore sepsis ruled out on CTX UCx showing E. coli, change to nitrofurantoin 3. Left hip hematoma pelvic CT did not show fxr. supportive mgmt 4. Chronic HFpEF resume furosemide 5. pAfib on apixaban and amiodarone 6. HTN amlodipine Physical Exam Const alert and oriented x3 Resp normal respiratory effort, no retractions, no use of accessory muscles and clear to auscultation bilaterally Cardio regular rate, regular rhythm, S1 normal heart sound and S2 normal heart sound Weight / BMI Weight Weight: 103.3 kg Body Mass Index (BMI) 44.5 ABG / Lab / Microbiology Data Result Diagrams: 10/23/20 05:59 10/23/20 05:59 Laboratory: Laboratory Results - last 24 hr 10/21/20 11:56: Diff Path Review Reviewed 10/22/20 05:50: Diff Path Review Reviewed 10/23/20 05:59: WBC 14.1 H, RBC 3.40 L, Hgb 9.0 L, Hct 31.3 L, MCV 92.1, MCH 26.5 L, MCHC 28.8 L, RDW Std Deviation 52.4 H, RDW Coeff of Carissa 15.4 H, Plt Count 258, MPV 10.8, Immature Gran % (Auto) 0.800, Neut % (Auto) 78.4 H, Lymph % (Auto) 10.5 L, [place] % (Auto) 8.9, Eos % (Auto) 1.3, Baso % (Auto) 0.1, Absolute Neuts (auto) 11.0 H, Absolute Lymphs (auto) 1.48, Nucleated RBC % 0 10/23/20 05:59: Sodium 139, Potassium 4.0, Chloride 107, Carbon Dioxide 27.0, Anion Gap 5, BUN 23 H, Creatinine 1.25 H, Estim Creat Clear Calc 27.50, Est GFR (MDRD) Af Amer 54 L, Est GFR (MDRD) Non-Af 44 L, BUN/Creatinine Ratio 18.4, Glucose 89, Calcium 8.9 Microbiology: Microbiology 10/21/20 12:11 Urine Catheter - Catheter Urine Culture - Final Presumptive E. 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 NAYA Attending Provider: Douglas Bowman Primary Care Provider: Octaviano Franco Chi Discharge Orders/Prescriptions Prescriptions: New nitrofurantoin monohyd/m-cryst [Macrobid] 100 mg capsule 100 mg PO BID Qty: 10 RF: 0 Continued amlodipine 2.5 mg tablet 5 mg PO DAILY RF: 0 amiodarone 200 MG tablet 200 mg PO DAILY RF: 0 magnesium oxide 400 MG tablet 400 mg PO BID RF: 0 duloxetine 60 MG capsule,delayed release(DR/EC) 60 mg PO DAILY RF: 0 hydralazine 50 MG tablet 50 mg PO TID RF: 0 apixaban 2.5 MG tablet 5 mg PO BID RF: 0 atorvastatin 20 MG tablet 20 mg PO QHS RF: 0 omeprazole 20 MG capsule 20 mg PO DAILY RF: 0 carbamazepine 200 MG tablet 400 mg PO QHS RF: 0 albuterol sulfate 2.5 MG/3 ML solution for nebulization 2.5 mg inhalation Q2H PRN PRN (Reason: SOB/Wheezing) RF: 0 psyllium Packet 1 packet PO DAILY RF: 0 Lactobacillus rhamnosus GG 10 billion cell Capsule 1 cap PO DAILY RF: 0 acetaminophen 325 MG tablet 650 mg PO TID RF: 0 Discontinued gabapentin 300 mg capsule 300 mg PO TID RF: 0 tramadol 50 mg tablet 50 mg PO Q8H PRN (Reason: Pain) RF: 0 potassium chloride 20 MEQ tablet,ER particles/crystals 20 meq PO BID RF: 0 furosemide 20 mg tablet 20 mg PO DAILY RF: 0 Referrals / Follow Up: Octaviano Franco Chi, MD [Primary Care Provider] - Within 1 Week Disposition Disposition (needs filled in before D/C Order can be placed): NonSkilled NH/Intermed Care Charges/Coding Visit Charges Inpatient E&M: 09829 Disch Hosp
--- NOTE | 2020-10-23 20:36 | NURSING ---
Transportation picked patient up at this time. Transferred patient onto a cot with 2L NC on at this time.
== END 2020-10-23 20:38 | DRG 690 ==
LOC: ED 13:51 → PCU 16:55
PROVIDERS: Admitting Provider Internal Medicine; Emergency Provider Emergency Medicine; PCP Family Medicine Geriatric Medicine
DX: N30.00 Acute cystitis without hematuria (principal); N17.9 Acute kidney failure, unspecified; G35 Multiple sclerosis; I50.32 Chronic diastolic (congestive) heart failure; I11.0 Hypertensive heart disease with heart failure; I48.0 Paroxysmal atrial fibrillation; Z68.41 Body mass index [BMI] 40.0-44.9, adult; E66.01 Morbid (severe) obesity due to excess calories; B96.20 Unspecified Escherichia coli [E. coli] as the cause of diseases classified elsewhere; S70.02XA Contusion of left hip, initial encounter; W19.XXXA Unspecified fall, initial encounter; I25.10 Atherosclerotic heart disease of native coronary artery without angina pectoris; K21.9 Gastro-esophageal reflux disease without esophagitis; Z95.1 Presence of aortocoronary bypass graft; Z79.01 Long term (current) use of anticoagulants; Z79.899 Other long term (current) drug therapy; Z86.16 Personal history of COVID-19; Z87.891 Personal history of nicotine dependence; Z86.718 Personal history of other venous thrombosis and embolism
CPT/HCPCS: 36415; 70450; 71045; 72170; 72192; 73030; 73502; 80048; 80053; 81001; 83605; 83735; 84100; 85025; 87040; 87077; 87086; 87088; 87186; 87426; 93005; 96361; 96365; 96366; 97162; 97166; 99218; 99284; 99285; J7030; P9612; A4216; G0378; J0696

== ENCOUNTER 2021-04-24 13:28 | Emergency (ER) | payer MEDICARE, MEDICAID, SELFPAY ==
[2021-04-24 13:30] VITALS: BP 130/74; PULSE 71; RESP 17; TEMP 36.7; O2SAT 96; BMI 41.8
--- NOTE | 2021-04-24 14:19 | EX.ED.DYSGE1 ---
HPI History of Present Illness Chief Complaint: Complaint Informant: patient Onset/Context/Timing Onset: Days (5) Context: Gradual Onset Timing: Continuous Quality: Burning Location: Suprapubic Worsened by: Nothing Relieved by: Nothing Narrative Narrative: Patient presents with possible urinary tract infection that has been getting worse over the past 5 days. Patient lives in extended-care facility and they had a urinalysis ordered. There are no results for this yet. Patient states she has been having some burning with urination. Patient admits to some urinary frequency. Patient denies any hematuria. Patient states her pain radiates into her back. Patient states she has been feeling more weak. Patient states she has also been having some trouble swallowing. Patient states that she just does not feel that she can swallow as well over the past couple days. Patient admits to a mild sore throat. Patient denies any pain with swallowing. Patient denies any paresthesias or weakness. Patient denies any headaches. Patient denies any visual changes. Patient denies any other stroke symptoms. 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 Cellulitis of right leg Congestive heart failure (CHF) Diabetic ulcer of both lower extremities Diastolic CHF Essential hypertension GERD (gastroesophageal reflux disease) History of DVT (deep vein thrombosis) Hyperlipidemia Multiple sclerosis LAURITA (obstructive sleep apnea) Paroxysmal atrial fibrillation Peripheral vascular disease Trigeminal neuralgia Type 2 diabetes mellitus Ulcer of left lower extremity with fat layer exposed Ulcer of right lower extremity with fat layer exposed Venous insufficiency of both lower extremities Home Medications amiodarone 200 mg PO DAILY 04/09/18 [History Last Taken 10/21/20] duloxetine 60 mg PO DAILY 04/09/18 [History Last Taken 10/21/20] magnesium oxide 400 mg PO BID 04/09/18 [History Last Taken 10/21/20] hydralazine 50 mg PO TID 01/04/19 [History Last Taken 10/21/20] apixaban 5 mg PO BID 02/07/19 [History Last Taken 10/21/20] atorvastatin 20 mg PO QHS 08/04/19 [History Last Taken 10/20/20] omeprazole 20 mg PO DAILY 08/04/19 [History Last Taken 10/21/20] albuterol sulfate 2.5 mg INHALATION Q2H PRN PRN vial.neb. 08/12/19 [Rx Last Taken Unknown] Lactobacillus rhamnosus GG 1 cap PO DAILY 10/21/20 [History Last Taken 10/20/20] psyllium 1 packet PO DAILY 10/21/20 [History Last Taken 10/20/20] acetaminophen 325 mg tablet 650 mg PO Q6H PRN tab 03/29/21 [History Last Taken Unknown] amlodipine 2.5 mg tablet 2.5 mg PO DAILY tab 03/29/21 [History Last Taken Unknown] bisacodyl 5 mg tablet,delayed release 5 mg PO DAILY PRN tab 03/29/21 [History Last Taken Unknown] carbamazepine 400 mg tablet,extended release,12 hr 400 mg PO QHS tab 03/29/21 [History Last Taken Unknown] gabapentin 300 mg capsule 300 mg PO BID cap 03/29/21 [History Last Taken Unknown] polyethylene glycol 3350 17 gram/dose oral powder 17 g PO DAILY 03/29/21 [History Last Taken Unknown] tramadol 50 mg tablet 50 mg PO Q8H PRN 03/29/21 [History Last Taken Unknown] nitrofurantoin monohyd/m-cryst 100 mg PO Q12 #20 capsule 04/24/21 [Rx Last Taken Unknown] Allergy/AdvReac Type Severity Reaction Status Date / Time codeine Allergy Unknown Hives Verified 04/24/21 13:29 cefazolin Allergy Rash Verified 04/24/21 13:29 ciprofloxacin [From Cipro] Allergy Hives Verified 04/24/21 13:29 ciprofloxacin HCl Allergy Hives Verified 04/24/21 13:29 [From Cipro] Latex, Natural Rubber Allergy Rash Verified 04/24/21 13:29 Penicillins [PCN] Allergy Hives Verified 04/24/21 13:29 vancomycin Allergy Angioedema Verified 04/24/21 13:29 adhesive tape AdvReac Rash Verified 04/24/21 13:29 Family History Father Heart disease Cancer prostate Mother Hypertension Cancer mets but unsure where to Breast cancer Brother Diabetes Hypertension Surgical History History of cataract surgery History of cholecystectomy History of hernia repair History of tonsillectomy and adenoidectomy History of total hysterectomy Presence of coronary angioplasty implant and graft (~08/29/12) S/P CABG (coronary artery bypass graft) (~01/02/11) Social History Smoking Status: Former smoker how long ago did patient quit smokin alcohol intake: never substance use type: does not use caffeine: Yes Type: coffee Number of servings: 1 additional social history: DOES NOT USE ASPIRIN DOES US IBUPROFEN ROS ROS ED Constitutional Constitutional ED: Denies chills or fever(s) Eyes Eyes: Denies blurry vision or change in vision ENT ENT ED: Reports sore throat; Denies rhinorrhea Cardiovascular Cardiovascular: Reports chest pain; Denies palpitations Respiratory/Chest Respiratory/Chest: Denies cough or dyspnea Gastrointestinal Gastrointestinal: Denies nausea or vomiting Genitourinary Genitourinary ED: Reports dysuria and urinary frequency; Denies hematuria Musculoskeletal Musculoskeletal: Reports back pain; Denies neck pain Integumentary Denies abscess or rash Neurologic Neurologic: Reports weakness; Denies headache(s) Allergic/Immunologic Allergic/Immunologic ED: Denies mouth swelling or urticaria EXAM Physical Exam Const Vital Signs: 04/24/21 13:30 04/24/21 15:29 04/24/21 16:09 Temperature 98.0 F 98.0 F Temperature Source Oral Oral Pulse Rate 71 65 Respiratory Rate 17 19 H Blood Pressure 130/74 H 160/65 H 169/86 H Blood Pressure Mean 92 96 113 Pulse Ox 96 97 Oxygen Delivery Method Room Air Room Air Positive well nourished, well developed and obese General Appearance ED: well developed and NAD Nutritional Appearance: obese HEENT Reports moist mucous membranes Neck supple and no JVD Resp normal respiratory effort and clear to auscultation bilaterally Cardio regular rate and regular rhythm GI normal to inspection, nondistended, normoactive bowel sounds and non-tender Palpation: soft Neuro oriented x3, CN's II-XII intact bilaterally and no sensory deficits noted Sensorium / Orientation: alert Motor Exam: strength 5/5 throughout Psych mental status grossly normal MDM MDM MDM Narrative Medical decision making narrative: EKG was obtained. On my interpretation, it showed a normal sinus rhythm with a rate of 66. [place] interval, QRS interval, and QTc intervals were all normal. [place] was normal. There are nonspecific ST-T wave changes. CBC was within normal limits. Comprehensive metabolic profile was within normal limits. Lactate was normal. High-sensitivity troponin was normal. Urinalysis shows a leukocyte esterases of 500 with greater than 100 white blood cells. Urine culture was ordered. Patient was given a dose of Macrobid here. CT scan of the brain was obtained. Portable 1 view chest x-ray was obtained. On my interpretation, lung gallegos show chronic changes. There is normal cardiac silhouette. Bony thorax is normal. There is no acute process noted. Radiologist also interpreted the x-ray and agrees. Patient was able to swallow her Macrobid and p.o. fluids without difficulty. Patient was given a prescription for Macrobid. Patient was instructed to follow-up with her primary care physician in 5 to 7 days for reevaluation. Patient and family understood and were agreeable with the plan. All questions were answered. Lab Data Attestation: I reviewed the patient's lab results. Labs: Laboratory Results - last 24 hr 04/24/21 04/24/21 04/24/21 13:55 15:05 15:05 WBC 10.9 RBC 4.61 Hgb 11.7 L Hct 38.1 MCV 82.6 MCH 25.4 L MCHC 30.7 L RDW Std Deviation 47.5 H RDW Coeff of Carissa 15.8 H Plt Count 342 MPV 9.3 Immature Gran % (Auto) 0.600 Neut % (Auto) 65.6 Lymph % (Auto) 22.7 [place] % (Auto) 8.2 Eos % (Auto) 2.5 Baso % (Auto) 0.4 Absolute Neuts (auto) 7.1 Absolute Lymphs (auto) 2.47 Nucleated RBC % 0 Sodium 144 Potassium 3.5 Chloride 108 H Carbon Dioxide 32.0 Anion Gap 4 L BUN 13 Creatinine 0.98 Estim Creat Clear Calc 34.53 Est GFR (MDRD) Af Amer 71 Est GFR (MDRD) Non-Af 58 L BUN/Creatinine Ratio 13.2 Glucose 120 H Lactic Acid Calcium 9.0 Total Bilirubin 0.20 AST 12 L ALT 15 Alkaline Phosphatase 140 H Troponin I High Sens 20 Total Protein 6.6 Albumin 2.7 L Globulin 3.9 Albumin/Globulin Ratio 0.7 L Urine Color Yellow Urine Clarity Turbid Urine pH 6.0 Ur Specific [place] 1.020 Urine Protein 100 H Urine Glucose (UA) Normal Urine Ketones Negative Urine Occult Blood 50 H Urine Nitrite Negative Urine Bilirubin Negative Urine Urobilinogen Normal Ur Leukocyte Esterase 500 H Urine RBC 0-5 SEEN Urine WBC >100 SEEN Ur Squamous Epith Cells 0-5 SEEN Urine Bacteria RARE Urine Mucus 1+ 04/24/21 15:05 WBC RBC Hgb Hct MCV MCH MCHC RDW Std Deviation RDW Coeff of Carissa Plt Count MPV Immature Gran % (Auto) Neut % (Auto) Lymph % (Auto) [place] % (Auto) Eos % (Auto) Baso % (Auto) Absolute Neuts (auto) Absolute Lymphs (auto) Nucleated RBC % Sodium Potassium Chloride Carbon Dioxide Anion Gap BUN Creatinine Estim Creat Clear Calc Est GFR (MDRD) Af Amer Est GFR (MDRD) Non-Af BUN/Creatinine Ratio Glucose Lactic Acid 1.5 Calcium Total Bilirubin AST ALT Alkaline Phosphatase Troponin I High Sens Total Protein Albumin Globulin Albumin/Globulin Ratio Urine Color Urine Clarity Urine pH Ur Specific [place] Urine Protein Urine Glucose (UA) Urine Ketones Urine Occult Blood Urine Nitrite Urine Bilirubin Urine Urobilinogen Ur Leukocyte Esterase Urine RBC Urine WBC Ur Squamous Epith Cells Urine Bacteria Urine Mucus Radiography Chest X-Ray - ED: 1 View, Read by ED Physician, Read by Radiologist and No Acute Disease Diagnostic Testing: Clinical Impression(s) from Imaging Studies Brain CT 04/24/21 14:27 IMPRESSION: No acute intracranial finding. MRI may be obtained if clinically indicated. Electronically Signed: Shay Castillo MD at 15:51 EDT , Chest X-Ray 04/24/21 14:27 IMPRESSION: No acute cardiopulmonary process. Electronically Signed: Olvin Sagastume MD at 15:54 EDT , EKG Initial EKG: Attestation: I personally reviewed and interpreted this EKG as follows: Interpretation: Sinus Rhythm (66), No Acute Injury Pattern and Non-Specific ST Changes Prior EKG tracings: available for review Prior: Unchanged (10/21/2020) Discharge Plan Triage Chief Complaint: Complaint ED Provider: Douglas Palmer Dx/Rx/DC Orders Clinical Impression: Urinary tract infection Instructions: ED CYSTITIS Female Adult Prescriptions: New nitrofurantoin monohyd/m-cryst [nitrofurantoin monohyd/m-cryst] 100 MG capsule 100 mg PO Q12 Qty: 20 RF: 0 No Action amlodipine 2.5 mg tablet 2.5 mg PO DAILY RF: 0 carbamazepine 400 mg tablet extended release 12 hr 400 mg PO QHS RF: 0 gabapentin 300 mg capsule 300 mg PO BID RF: 0 polyethylene glycol 3350 17 gram/dose powder 17 g PO DAILY RF: 0 tramadol 50 mg tablet 50 mg PO Q8H PRNRF: 0 bisacodyl 5 mg tablet,delayed release (DR/EC) 5 mg PO DAILY PRNRF: 0 amiodarone 200 MG tablet 200 mg PO DAILY RF: 0 magnesium oxide 400 MG tablet 400 mg PO BID RF: 0 duloxetine 60 MG capsule,delayed release(DR/EC) 60 mg PO DAILY RF: 0 hydralazine 50 MG tablet 50 mg PO TID RF: 0 apixaban 2.5 MG tablet 5 mg PO BID RF: 0 atorvastatin 20 MG tablet 20 mg PO QHS RF: 0 omeprazole 20 MG capsule 20 mg PO DAILY RF: 0 albuterol sulfate 2.5 MG/3 ML solution for nebulization 2.5 mg inhalation Q2H PRN PRN (Reason: SOB/Wheezing) RF: 0 psyllium Packet 1 packet PO DAILY RF: 0 Lactobacillus rhamnosus GG 10 billion cell Capsule 1 cap PO DAILY RF: 0 acetaminophen 325 mg tablet 650 mg PO Q6H PRN (Reason: PAIN AND FEVER) RF: 0 Primary Care Provider: Uriel Mac Referrals: Uriel Mac MD [Primary Care Provider] - 5-7 Days Disposition Disposition: Alf Facility Discharge Location: [facility] [place]
--- NOTE | 2021-04-24 14:27 | EKG12_ITS ---
Test Reason : COMPLAINT Blood Pressure : / mmHG Vent. Rate : 066 BPM Atrial Rate : 066 BPM P-R Int : 186 ms QRS Dur : 082 ms QT Int : 410 ms P-R-T Axes : 060 016 148 degrees QTc Int : 429 ms Normal sinus rhythm ST & T wave abnormality, consider lateral ischemia Abnormal ECG Confirmed by REBECCA HATCH, CHERYL ([id number]), design editor BOBBY VELA ([id number]) on 04/29/2021 8:55:59 AM Referred By: ARABELLA Confirmed By:CHERYL FERNANDEZ MD
--- NOTE | 2021-04-24 14:27 | RAD_ITS ---
STUDY: X-RAY CHEST REASON FOR EXAM: Female, 76 years old. Weakness TECHNIQUE: Single frontal view of the chest. COMPARISON: 10/21/2021 FINDINGS: Median sternotomy wires. The lungs are clear and expanded. There is no demonstrated pleural abnormality. There is moderate cardiac enlargement. Normal mediastinum and alee. Normal visualized pulmonary arteries. Normal visualized aortic arch and descending thoracic aorta. Normal visualized thoracic spine. Normal visualized ribs, clavicles, and shoulders. There is no demonstrated abnormality of the visualized soft tissue structures of the upper abdomen. RAD/Chest 1 View (Portable) IMPRESSION: No acute cardiopulmonary process. Electronically Signed: Olvin Sagastume MD at 15:54 EDT ,
--- NOTE | 2021-04-24 14:27 | CT_ITS ---
STUDY: CT BRAIN WITHOUT CONTRAST REASON FOR EXAM: Female, 76 years old. Weakness RADIATION DOSAGE (If Supplied By Facility): CTDIvol = ( 44.99 ) mGy, DLP = ( 812.98 ) mGycm TECHNIQUE: Transaxial CT imaging of the brain was performed without administration of intravenous contrast material. Individualized dose optimization techniques were used for this CT. COMPARISON: 2020 FINDINGS: There is no intra-/extra-axial fluid collection, mass effect, or midline shift. The montiel/white matter junction is preserved. Hypoattenuation of periventricular and subcortical white matter suggestive of chronic small vessel ischemic disease. Mild diffuse parenchymal volume loss is noted. There is vascular calcification. The basal cisterns are patent. Visualized paranasal sinuses and mastoid air cells are clear. The calvarium is intact. CT/Brain/Head without Contrast IMPRESSION: No acute intracranial finding. MRI may be obtained if clinically indicated. Electronically Signed: Shay Castillo MD at 15:51 EDT ,
[2021-04-24 14:46] LABS: Color, Urine Yellow (Yellow); Glucose, Dipstick Normal (Normal); Ketone-Dipstick Negative (Negative); Leukocyte Esterase-Dipstick 500 /ul (Negative); Nitrite-Dipstick Negative (Negative); Occult Blood-Urine 50 /ul (Negative); Protein-Dipstick 100 mg/dl (Negative); Urine Bilirubin Dipstick Negative (Negative); Urine Clarity Turbid (Clear); Urine Urobilinogen Normal (Normal)
[2021-04-24 14:54] LABS: Bacteria RARE /hpf (None Seen); Red Blood Cells-Urine 0-5 SEEN /hpf (0-5); Squamous Epithelial Cells - UA 0-5 SEEN /hpf (5-10); White Blood Cells >100 SEEN /hpf (0-5)
[2021-04-24 14:55] LABS: Mucous, Urine 1+ /hpf (<or=2+)
[2021-04-24 15:14] LABS: Absolute Lymphocyte Count 2.47 X10^3/uL (0.83-4.51); Absolute Neutrophil Count 7.1 X10^3/uL (2.0-7.7); Basophil# 0.04 X10^3/uL; Basophil% 0.4 % (0-1); Eosinophil# 0.27 X10^3/uL; Eosinophils% 2.5 % (0-5); Hematocrit 38.1 % (37-47); Hemoglobin 11.7 g/dL (12.0-15.0); Lymphocyte # 2.47 X10^3/ul (0.83-4.51); Lymphocyte % 22.7 % (19-41); Mean Corp Hgb Conc 30.7 g/dL (32-36); Mean Corpuscular Hgb 25.4 pg (27.0-32.0); Mean Corpuscular Volume 82.6 fL (81-99); Mean Platelet Vol. 9.3 fl (6.2-12.0); Monocyte# 0.89 X10^3/uL; Monocyte% 8.2 % (0-10); NRBC Flagged by Analyzer 0 % (0-5); Neutrophil # 7.13 X10^3/uL (2.7-7.7); Neutrophil % 65.6 % (47-70); Platelet Count 342 K/mm3 (150-450); RBC Distribution Width CV 15.8 % (11.6-14.6); RBC Distribution Width SD 47.5 fl (35.1-43.9); Red Blood Count 4.61 M/mm3 (4.2-5.4); White Blood Count 10.9 K/mm3 (4.4-11.0)
[2021-04-24 15:28] LABS: ALB/GLOB Ratio 0.7 RATIO (0.9-2.4); AST(SGOT) 12 U/L (15-37); Alanine Aminotransfer ALT/SGPT 15 U/L (13-56); Albumin, Serum 2.7 g/dL (3.2-5.0); Alkaline Phosphatase 140 U/L (45-117); Anion Gap 4 (5-15); BUN 13 mg/dL (7-18); BUN/Creat Ratio 13.2 RATIO (10-20); Chloride 108 mmol/L (98-107); Creatinine, Serum 0.98 mg/dL (0.55-1.02); EST Glomerular Filtration Rate 58 mL/min (>60); Est Glom Filt Rate - Afr Amer 71 mL/min (>60); Estimated Creatinine Clearance 34.53 ml/min; Globulin 3.9 g/dL (2.2-4.2); Glucose 120 mg/dL (74-106); Potassium 3.5 mmol/L (3.5-5.1); Protein, Total 6.6 g/dL (6.4-8.2); Sodium Level 144 mmol/L (136-145); Troponin-I HS 20 pg/mL (3.0-54.0)
[2021-04-24 15:29] VITALS: BP 160/65; PULSE 65; RESP 19; TEMP 36.7; O2SAT 97
[2021-04-24 15:37] LABS: Lactic Acid 1.5 mmol/L (0.4-1.9)
[2021-04-24] MEDS: Nitrofurantoin Macrocrystals 100 MG Capsule PO (16:08)
[2021-04-24 16:09] VITALS: BP 169/86
[2021-04-24 16:35] VITALS: BP 159/72
== END 2021-04-24 17:08 | disposition skilled nursing facility (03) ==
PROVIDERS: Emergency Provider Emergency Medicine; PCP Family Medicine; Visit Provider Emergency Medicine
DX: N39.0 Urinary tract infection, site not specified (principal); E11.51 Type 2 diabetes mellitus with diabetic peripheral angiopathy without gangrene; G35 Multiple sclerosis; I11.0 Hypertensive heart disease with heart failure; I50.32 Chronic diastolic (congestive) heart failure; I48.0 Paroxysmal atrial fibrillation; Z68.41 Body mass index [BMI] 40.0-44.9, adult; E78.5 Hyperlipidemia, unspecified; Z87.891 Personal history of nicotine dependence; I25.10 Atherosclerotic heart disease of native coronary artery without angina pectoris; Z86.718 Personal history of other venous thrombosis and embolism; G47.33 Obstructive sleep apnea (adult) (pediatric); G50.0 Trigeminal neuralgia; Z79.899 Other long term (current) drug therapy; Z79.01 Long term (current) use of anticoagulants; Z95.1 Presence of aortocoronary bypass graft; E66.9 Obesity, unspecified
CPT/HCPCS: 70450; 71045; 80053; 81001; 83605; 84484; 85025; 87077; 87086; 87088; 87186; 93005; 99285; A4216

== ENCOUNTER 2021-04-26 20:24 | Emergency (ER) | payer MEDICARE, MEDICAID, SELFPAY ==
--- NOTE | 2021-04-26 20:20 | CT_ITS ---
STUDY: CT BRAIN WITHOUT CONTRAST REASON FOR EXAM: Female, 76 years old. stroke Individualized dose optimization techniques were used for this CT. TECHNIQUE: Transaxial CT imaging of the brain was performed without administration of intravenous contrast material. COMPARISON: 10/21/20 FINDINGS: There are calcifications around the carotid artery. These are noted in the cavernous carotid arteries. Normal calvarium. Normal soft tissues. There is mild cerebral atrophy with widening of the extra-axial spaces and ventricular dilatation. There are areas of decreased attenuation within the white matter tracts of the supratentorial brain, consistent with microvascular disease changes. Normal basal ganglia and thalami. Normal brainstem. There is mild cerebellar atrophy. There is no intracranial hemorrhage. There are no findings of an acute ischemic infarction. Normal visualized paranasal sinuses. ASPECTS Score for Acute Strokes: 11/14 CT/STROKE Brain/Head without Cont IMPRESSION: There are no acute findings. Chronic involutional changes of the brain. N.B. : The above Results were Read Back by Abundio Don MD to Dr. Ryan Blanton MD, and understanding confirmed on 04/26/2021 20:43:31 (ET). Electronically Signed: Abundio Don MD at 20:37 EDT ,
[2021-04-26 20:25] VITALS: BP 162/138; PULSE 70; RESP 17; TEMP 37.2; O2SAT 95; BMI 41.8
[2021-04-26 20:35] VITALS: BMI 41.8
--- NOTE | 2021-04-26 21:02 | EDS_ITS ---
HPI History of Present Illness Chief Complaint: Neuro S/Sx Informant: patient Onset/Context/Timing Current Severity: Mild Maximum Severity: Mild Narrative Narrative: 76-year-old female from extended-care facility. Recently had a UTI was admitted to the hospital and discharged back to facility. They think she is more weak today. They were concerned with a stroke. Patient does not feel t here is any significant change. 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 Cellulitis of right leg Congestive heart failure (CHF) Diabetic ulcer of both lower extremities Diastolic CHF Essential hypertension GERD (gastroesophageal reflux disease) History of DVT (deep vein thrombosis) Hyperlipidemia Multiple sclerosis LAURITA (obstructive sleep apnea) Paroxysmal atrial fibrillation Peripheral vascular disease Trigeminal neuralgia Type 2 diabetes mellitus Ulcer of left lower extremity with fat layer exposed Ulcer of right lower extremity with fat layer exposed Venous insufficiency of both lower extremities Home Medications amiodarone 200 mg PO DAILY 04/09/18 [History Last Taken 10/21/20] duloxetine 60 mg PO DAILY 04/09/18 [History Last Taken 10/21/20] magnesium oxide 400 mg PO BID 04/09/18 [History Last Taken 10/21/20] hydralazine 50 mg PO TID 01/04/19 [History Last Taken 10/21/20] apixaban 5 mg PO BID 02/07/19 [History Last Taken 10/21/20] atorvastatin 20 mg PO QHS 08/04/19 [History Last Taken 10/20/20] omeprazole 20 mg PO DAILY 08/04/19 [History Last Taken 10/21/20] albuterol sulfate 2.5 mg INHALATION Q2H PRN PRN vial.neb. 08/12/19 [Rx Last Taken Unknown] Lactobacillus rhamnosus GG 1 cap PO DAILY 10/21/20 [History Last Taken 10/20/20] psyllium 1 packet PO DAILY 10/21/20 [History Last Taken 10/20/20] acetaminophen 325 mg tablet 650 mg PO Q6H PRN tab 03/29/21 [History Last Taken Unknown] amlodipine 2.5 mg tablet 2.5 mg PO DAILY tab 03/29/21 [History Last Taken Unknown] bisacodyl 5 mg tablet,delayed release 5 mg PO DAILY PRN tab 03/29/21 [History Last Taken Unknown] carbamazepine 400 mg tablet,extended release,12 hr 400 mg PO QHS tab 03/29/21 [History Last Taken Unknown] gabapentin 300 mg capsule 300 mg PO BID cap 03/29/21 [History Last Taken Unknown] polyethylene glycol 3350 17 gram/dose oral powder 17 g PO DAILY 03/29/21 [History Last Taken Unknown] tramadol 50 mg tablet 50 mg PO Q8H PRN 03/29/21 [History Last Taken Unknown] nitrofurantoin monohyd/m-cryst 100 mg PO Q12 #20 capsule 04/24/21 [Rx Last Taken Unknown] Allergy/AdvReac Type Severity Reaction Status Date / Time codeine Allergy Unknown Hives Verified 04/24/21 13:29 cefazolin Allergy Rash Verified 04/24/21 13:29 ciprofloxacin [From Cipro] Allergy Hives Verified 04/24/21 13:29 ciprofloxacin HCl Allergy Hives Verified 04/24/21 13:29 [From Cipro] Latex, Natural Rubber Allergy Rash Verified 04/24/21 13:29 Penicillins [PCN] Allergy Hives Verified 04/24/21 13:29 vancomycin Allergy Angioedema Verified 04/24/21 13:29 adhesive tape AdvReac Rash Verified 04/24/21 13:29 Family History Father Heart disease Cancer prostate Mother Hypertension Cancer mets but unsure where to Breast cancer Brother Diabetes Hypertension Surgical History History of cataract surgery History of cholecystectomy History of hernia repair History of tonsillectomy and adenoidectomy History of total hysterectomy Presence of coronary angioplasty implant and graft (~08/29/12) S/P CABG (coronary artery bypass graft) (~01/02/11) Social History Smoking Status: Former smoker how long ago did patient quit smokin alcohol intake: never substance use type: does not use caffeine: Yes Type: coffee Number of servings: 1 additional social history: DOES NOT USE ASPIRIN DOES US IBUPROFEN ROS ROS ED ROS Narrative Recent UTI. Denies any vomiting or diarrhea today. Review of Systems ROS Unobtainable: Denies due to encephalopathy Constitutional Constitutional ED: Denies fever(s) Eyes Eyes: Denies change in vision ENT ENT ED: Denies ear pain Cardiovascular Cardiovascular: Denies chest pain Respiratory/Chest Respiratory/Chest: Denies dyspnea Gastrointestinal Gastrointestinal: Denies abdominal pain, nausea or vomiting Genitourinary Genitourinary ED: Denies dysuria Musculoskeletal Musculoskeletal: Denies myalgias Integumentary Denies rash Neurologic Neurologic: Denies headache(s) Psychiatric Psychiatric: Denies depression Endocrine Endocrinology: Denies polyuria Allergic/Immunologic Allergic/Immunologic ED: Denies urticaria EXAM Physical Exam Narrative Exam Narrative: 76-year-old female vital signs are stable initial blood pressure is 160/138. That will be reevaluated. She is afebrile temperature 99. Pulse ox 95% on room air no signs hypoxia. H EENT exam unremarkable. Moist membranes. Lungs clear to auscultation. Heart regular rhythm rate about 70. Abdomen soft nontender. Extremities normal mains and service supervisor strength bilaterally. She can raise either arm without drift. She has weakness in both lower extremities. I suspect that to be chronic. It is equal bilaterally. She is awake and alert. She is answering questions and following commands. Const Vital Signs: 04/26/21 20:25 Temperature 99 F Temperature Source Temporal Pulse Rate 70 Respiratory Rate 17 Blood Pressure 162/138 H Blood Pressure Mean 146 Pulse Ox 95 Oxygen Delivery Method Room Air Positive well nourished, well developed and obese; Negative for cachectic, contractures or unkempt General Appearance ED: well developed and NAD; Negative for unkempt, cachectic, contractures, cyanotic, diaphoretic or pallor Nutritional Appearance: obese; Negative for cachectic HEENT Reports moist mucous membranes Negative for trauma or tenderness Eyes PERRL and EOMs intact bilaterally Neck no lymphadenopathy, supple and no JVD Chest Wall inspection of chest normal and palpation of chest normal Resp normal respiratory effort and clear to auscultation bilaterally Effort and Inspection: Negative for pain with movement Auscultation: Negative for rales, rhonchi or wheezes Cardio regular rate, regular rhythm, S1 normal heart sound, S2 normal heart sound and no murmurs GI normal to inspection, nondistended, normoactive bowel sounds, non-tender, non- distended and no masses Auscultation: normoactive bowel sounds Palpation: soft; Negative for tender or guarding Back/Spine no CVA tenderness General Back: Negative for CVA tenderness Cervical Spine: Negative for cervical spine tenderness Thoracic Spine / Upper Back: Negative for thoracic spinal tenderness Extremity normal to inspection General Extremety ED: Negative for edema or tenderness General Extremity: Negative for edema Neuro Neuro Narrative: Patient is awake and alert. She answers questions. She does know she is in the hospital. She knows her name. Sensorium / Orientation: alert; Negative for orientation impaired, lethargic or stuporous Motor Exam: strength 5/5 throughout Psych mental status grossly normal Appearance: Negative for unkempt Mood & Affect: Negative for depressed or tearful Skin no rashes or lesions noted and no wounds General Skin Exam: Negative for jaundice or pallor MDM MDM MDM Narrative Medical decision making narrative: 76-year-old sent in for weakness. Clinically I do not think this is a stroke. CAT scan of her brain showed chronic changes no acute process. Screening labs are being obtained. Repeat exam patient is doing well at 11:14 PM. She will be discharged back to the extended care facility. Lab Data Attestation: I reviewed the patient's lab results. Lab results narrative: CBC shows a white count 13.4. H&H 11.6 and 39. Platelets unremarkable. Electrolytes show a gap of 5 normal BUN and creatinine. Glucose 126. CAT scan showed no acute findings as read by the radiologist and reviewed by me. No significant change from the labs from 2 days ago. Labs: Laboratory Results - last 24 hr 04/26/21 04/26/21 20:40 20:40 WBC 13.4 H RBC 4.58 Hgb 11.6 L Hct 39.0 MCV 85.2 MCH 25.3 L MCHC 29.7 L RDW Std Deviation 48.9 H RDW Coeff of Carissa 15.9 H Plt Count 340 MPV 9.9 Immature Gran % (Auto) 0.500 Neut % (Auto) 69.3 Lymph % (Auto) 20.6 [place] % (Auto) 7.2 Eos % (Auto) 2.1 Baso % (Auto) 0.3 Absolute Neuts (auto) 9.3 H Absolute Lymphs (auto) 2.75 Nucleated RBC % 0 Sodium 143 Potassium 3.5 Chloride 108 H Carbon Dioxide 30.0 Anion Gap 5 BUN 14 Creatinine 0.96 Estim Creat Clear Calc 35.25 Est GFR (MDRD) Af Amer 73 Est GFR (MDRD) Non-Af 60 BUN/Creatinine Ratio 14.6 Glucose 126 H Calcium 9.3 Radiography Diagnostic Testing: Clinical Impression(s) from Imaging Studies Brain CT 04/26/21 20:20 IMPRESSION: There are no acute findings. Chronic involutional changes of the brain. N.B. : The above Results were Read Back by Abundio Don MD to Dr. Ryan Blanton MD, and understanding confirmed on 04/26/2021 20:43:31 (ET). Electronically Signed: Abundio Don MD at 20:37 EDT , Discharge Plan Triage Chief Complaint: Neuro S/Sx Other Complaint: Complaint ED Provider: Navin Blanton Dx/Rx/DC Orders Clinical Impression: Acute UTI, Weakness, Hx of CABG Instructions: ED CYSTITIS Female Adult Prescriptions: No Action amlodipine 2.5 mg tablet 2.5 mg PO DAILY RF: 0 carbamazepine 400 mg tablet extended release 12 hr 400 mg PO QHS RF: 0 gabapentin 300 mg capsule 300 mg PO BID RF: 0 polyethylene glycol 3350 17 gram/dose powder 17 g PO DAILY RF: 0 tramadol 50 mg tablet 50 mg PO Q8H PRN (Reason: Pain) RF: 0 bisacodyl 5 mg tablet,delayed release (DR/EC) 5 mg PO DAILY PRN (Reason: Constipation) RF: 0 amiodarone 200 MG tablet 200 mg PO DAILY RF: 0 magnesium oxide 400 MG tablet 400 mg PO BID RF: 0 duloxetine 60 MG capsule,delayed release(DR/EC) 60 mg PO DAILY RF: 0 hydralazine 50 MG tablet 50 mg PO TID RF: 0 apixaban 2.5 MG tablet 5 mg PO BID RF: 0 atorvastatin 20 MG tablet 20 mg PO QHS RF: 0 omeprazole 20 MG capsule 20 mg PO DAILY RF: 0 albuterol sulfate 2.5 MG/3 ML solution for nebulization 2.5 mg inhalation Q2H PRN PRN (Reason: SOB/Wheezing) RF: 0 psyllium Packet 1 packet PO DAILY RF: 0 Lactobacillus rhamnosus GG 10 billion cell Capsule 1 cap PO DAILY RF: 0 acetaminophen 325 mg tablet 650 mg PO Q6H PRN (Reason: PAIN AND FEVER) RF: 0 nitrofurantoin monohyd/m-cryst [nitrofurantoin monohyd/m-cryst] 100 MG capsule 100 mg PO Q12 Qty: 20 RF: 0 Primary Care Provider: Uriel Mac Referrals: Uriel Mac MD [Primary Care Provider] - 1-2 Days if not improving Activity Restrictions/Additional Instructions: Plenty of fluids and rest. Continue current medications. Follow-up with your primary care physician as needed. Disposition Disposition: Home, Self Care
[2021-04-26 21:11] LABS: Absolute Lymphocyte Count 2.75 X10^3/uL (0.83-4.51); Absolute Neutrophil Count 9.3 X10^3/uL (2.0-7.7); Basophil# 0.04 X10^3/uL; Basophil% 0.3 % (0-1); Eosinophil# 0.28 X10^3/uL; Eosinophils% 2.1 % (0-5); Hemoglobin 11.6 g/dL (12.0-15.0); Lymphocyte # 2.75 X10^3/ul (0.83-4.51); Lymphocyte % 20.6 % (19-41); Mean Corp Hgb Conc 29.7 g/dL (32-36); Mean Corpuscular Hgb 25.3 pg (27.0-32.0); Mean Corpuscular Volume 85.2 fL (81-99); Mean Platelet Vol. 9.9 fl (6.2-12.0); Monocyte# 0.96 X10^3/uL; Monocyte% 7.2 % (0-10); NRBC Flagged by Analyzer 0 % (0-5); Neutrophil # 9.27 X10^3/uL (2.7-7.7); Neutrophil % 69.3 % (47-70); Platelet Count 340 K/mm3 (150-450); RBC Distribution Width CV 15.9 % (11.6-14.6); RBC Distribution Width SD 48.9 fl (35.1-43.9); Red Blood Count 4.58 M/mm3 (4.2-5.4); White Blood Count 13.4 K/mm3 (4.4-11.0)
[2021-04-26 21:24] LABS: Anion Gap 5 (5-15); BUN 14 mg/dL (7-18); BUN/Creat Ratio 14.6 RATIO (10-20); Calcium,Total 9.3 mg/dL (8.5-10.1); Chloride 108 mmol/L (98-107); Creatinine, Serum 0.96 mg/dL (0.55-1.02); EST Glomerular Filtration Rate 60 mL/min (>60); Est Glom Filt Rate - Afr Amer 73 mL/min (>60); Estimated Creatinine Clearance 35.25 ml/min; Glucose 126 mg/dL (74-106); Potassium 3.5 mmol/L (3.5-5.1); Sodium Level 143 mmol/L (136-145)
[2021-04-26 23:24] VITALS: BP 162/75; PULSE 79; RESP 17; O2SAT 97
--- NOTE | 2021-04-26 23:44 | ED.RN ---
Rupal from [facility] called asking for update for patient. This RN informed her Ct and bloodwork were ok and she will be [facility] around 2-3 hours from now
== END 2021-04-27 01:16 | disposition home or self-care (01) ==
PROVIDERS: Emergency Provider Emergency Medicine; PCP Family Medicine; Visit Provider Emergency Medicine
DX: N39.0 Urinary tract infection, site not specified (principal); E11.51 Type 2 diabetes mellitus with diabetic peripheral angiopathy without gangrene; G35 Multiple sclerosis; I11.0 Hypertensive heart disease with heart failure; I50.32 Chronic diastolic (congestive) heart failure; I48.0 Paroxysmal atrial fibrillation; Z68.41 Body mass index [BMI] 40.0-44.9, adult; E78.5 Hyperlipidemia, unspecified; I25.10 Atherosclerotic heart disease of native coronary artery without angina pectoris; Z87.891 Personal history of nicotine dependence; Z95.1 Presence of aortocoronary bypass graft; K21.9 Gastro-esophageal reflux disease without esophagitis; Z86.718 Personal history of other venous thrombosis and embolism; G47.33 Obstructive sleep apnea (adult) (pediatric); G50.0 Trigeminal neuralgia; Z79.899 Other long term (current) drug therapy; Z79.01 Long term (current) use of anticoagulants; E66.9 Obesity, unspecified
CPT/HCPCS: 70450; 80048; 85025; 99285; A4216

== ENCOUNTER 2021-05-03 09:30 | Outpatient (CLI) | payer MEDICARE, MEDICAID, SELFPAY ==
--- NOTE | 2021-05-03 11:20 | ST.MBS ---
Modified Barium Swallow - Patient Information Study Date: 05/03/21 Study Time: 09:30 Direct Billable Minutes: 135 Total Minutes procedure & reportin Diagnosis: Multiple sclerosis (G35), Dysphagia (R13.10) Referring Physician: Veronika Kimbrough NP Reason for Referral: Objectively assess swallow function, risk for aspiration, and determine recommendations for least restrictive diet textures and compensatory strategies to improve safety of swallow. Medical History: The patient is a 76 year old female with PMH including MS, GERD, DM Type 2, dementia (unspecified), malignant neoplasm of lip unspecified (SEE chart for full PMH) who was referred for MBS study after increased difficulty swallowing in the past week. Since 04/29/2021, the patient has been on a full liquid diet per the recommendations of her BUSINESS ADMINISTRATION TEACHER as she has had choking episodes on puree textures. Current Diet Ordered: Full liquid diet Mental Status: WNL Respiratory Status: Oxygenating on 3L/M nasal cannula - Penetration-Aspiration Scale Penetration-Aspiration Scale: OBJECTIVE ASSESSMENT OF SWALLOW FUNCTION (QUANTITATIVE ? PER TRIAL): PENETRATION / ASPIRATION SCALE (ALVAREZ): 1 = does not enter airway 2 = enters airway/above vocal folds/ejected 3 = enters airway/above vocal folds/not ejected 4 = enters airway/contacts vocal folds/ejected 5 = enters airway/contacts vocal folds/not ejected 6 = enters airway/below vocal folds/ejected 7 = enters airway/below vocal folds/not ejected despite effort 8 = enters airway/below vocal folds/no effort VIDEOFLOROSCOPIC SCALE SCORE (AVLAREZ): Grade I = aspiration of material that has penetrated into the laryngeal vestibule, intact cough reflex Grade II = aspiration < 10 % of the bolus, intact cough reflex Grade III = aspiration of < 10 % of the bolus, reduced cough reflex or aspiration of > 10 % of the bolus, intact cough reflex Grade IV = aspiration of > 10 % of the bolus, reduced cough reflex - Penetration-Aspiration Scale Score Thin Liquid via teaspoon Result: 5= enters airways/contacts vocal folds/not ejected Thin Liquid via teaspoon Trial 2 Result: 8= enters airway/below vocal folds/no effort Comment: Grade III = aspiration of < 10 % of the bolus, min delayed throat clear Thin Liquid via small single sip from cup Result: 2= enter airway/above vocal folds/ejected Thin Liquid via small single sip from cup Trial 2 Result: 1= does not enter airway [place] Thick Liquid via small single sip from cup Result: 1= does not enter airway [place] Thick Liquid via teaspoon Result: 1= does not enter airway Pudding via 1/2 teaspoon Result: 3= enters airways/above vocal folds/not ejected Pudding via teaspoon Result: 1= does not enter airway 1/4 Cookie coated in pudding Result: 8= enters airway/below vocal folds/no effort - SILENT aspiration of pudding contrast Comment: Grade III = aspiration of < 10 % of the bolus, no cough response Pudding via teaspoon Trial 2 Result: 1= does not enter airway Pudding via teaspoon Trial 3 Result: 2= enter airway/above vocal folds/ejected Thin Liquid via small single sip from cup Trial 3 Result: 1= does not enter airway Comment: After completion of the sip the patient began to cough, but appeared to have difficulty breathing. Her face became red with eventual coughing. technical specialist assessed SpO2 which was mid 90s. [place] Thick Liquid via teaspoon Result: 7= enters airways/below vocal folds/not ejected despite effort Comment: Grade IV = aspiration of > 10 % of the bolus, reduced cough reflex. Again, the patient began to cough, but appeared to have difficulty breathing. Her face became red and she had some difficulty producing cough. SpO2 did remain in the mid 90s. [place] Thick Liquid via teaspoon Trial 2 Result: 3= enters airways/above vocal folds/not ejected - Oral Phase Labial Seal: Interlabial escape, no progression to anterior lip Tongue Control During Bolus Hold: Posterior escape of less than half of bolus Bolus Preparation/Mastication: Disorganized chewing/mashing with solid pieces of bolus unchewed Bolus Transport/Lingual Motion: Repetitive/disorganized tongue motion Oral Residue: Trace residue lining oral structures - Pharyngeal Phase Initiation of Pharyngeal Swallow: Bolus head in pyriforms Soft Palate Elevation: Trace column of contrast/air between soft palate and pharyngeal wall Laryngeal Elevation: Partial superior movement thyroid cart/partial apprx aryt-epig petiole Anterior Hyoid Excursion: Partial anterior movement Epiglottic Movement: Partial inversion Laryngeal Vestibule Closure at Height of Swallow: None; wide column of air/contrast in laryngeal vestibule - Wide column of NTL in laryngeal vestibule before the swallow Pharyngeal Stripping Wave: Present - complete Pharyngoesophageal Segment Opening: Parital distension and partial duration; parital obstruction of flow Tongue Base Retraction: Narrow column of contrast between tongue base & post. pharyngeal wall Pharyngeal Residue: Trace residue within or on pharyngeal structures - Esophageal Phase Esophageal Clearance: Esophageal retention - Retention in upper esophagus - no retrograde flow observed - Diagnosis/Impression Diagnosis: Severe oropharyngeal dysphagia (R13.12) Impression: The oral phase is marked by decreased mastication and decreased bolus control. She has premature posterior loss of bolus to the pyriforms before the swallow, resulting in suboptimal bolus placement upon swallow onset. [place] thick liquid via tsp spilled to the laryngeal vestibule prior to swallow onset. The pharyngeal phase is primarily marked by delayed swallow onset and decreased airway closure during the swallow. The patient has decreased laryngeal elevation and anterior hyoid excursion. She demonstrated SILENT aspiration of thin liquid trial via tsp. The patient had a weak cough reflex and appeared to have difficulty breathing upon aspiration of NTL via tsp and post prandial aspiration of pudding trial. She appeared to have increased weakness as the study progressed, demonstrating aspiration of nectar thickened liquids and increased laryngeal penetration of pudding and honey thickened trials. BUSINESS ADMINISTRATION TEACHER discontinued trials due to pt having 2 episodes of difficulty breathing and difficulty initiating cough reflex. Will recommend the patient remain NPO at this time due to concern for choking and high aspiration risk. She demonstrated aspiration with the above noted trials of thin, pudding, and nectar thick trials. She is also at risk for post prandial aspiration of honey thickened liquids after the swallow, as she demonstrated laryngeal penetration without full ejection of contrast from the laryngeal vestibule. - Recommendations Diet: NPO Recommend Repeat Modified Barium Swallow: Yes - Would recommend repeat MBS study 4-8 weeks after implementation of intensive oropharyngeal strengthening program. Need for Skilled Speech Therapy Services: Yes Comment: Will recommend the patient for intensive dysphagia therapy to address deficits in oropharyngeal swallow function. Would consider the patient for oropharyngeal strengthening to improve lingual strength/coordination, tongue base retraction, laryngeal elevation, and hyoid excursion (lingual resistance, Ramila, effortful swallow, CTAR, Shelia). Consider trials of unthickened water via cup with BUSINESS ADMINISTRATION TEACHER only, monitor SpO2 closely with trials. Recommend frequent oral care. Recommended Referrals: GI Consult - Consider GI consult for upper esophageal retention - no retrograde flow observed through [facility] Education Completed: 1. Described result of evaluation. - Reviewed results of MBS study and recommendations for NPO with pt's BUSINESS ADMINISTRATION TEACHER, Ivania Crowe. Education well received., 7. Pt requires further education on strategies & risks. - Status Active ST Patient: Active - Contact Information [facility] Speech Therapy:: Delma Arteaga M.A. [facility]-BUSINESS ADMINISTRATION TEACHER Speech-Language Pathologist [facility] [address] [place] [address] [email or web address] [phone] 05/03/21 16:17
== END 2021-05-03 23:59 | disposition home or self-care (01) ==
LOC: RAD 09:32
PROVIDERS: PCP Family Medicine; Referring Provider Nurse Practitioner Family; Visit Provider Nurse Practitioner Family
DX: R13.10 Dysphagia, unspecified (principal)
CPT/HCPCS: 74230; 92611

== ENCOUNTER 2021-05-03 16:46 | Observation (INO) | payer MEDICARE, MEDICAID, SELFPAY ==
[2021-05-03 16:48] VITALS: BP 154/56; PULSE 63; RESP 16; TEMP 36.7; O2SAT 97; BMI 42.3
--- NOTE | 2021-05-03 17:13 | EKG12_ITS ---
Test Reason : GEN ILLNESS Blood Pressure : / mmHG Vent. Rate : 064 BPM Atrial Rate : 064 BPM P-R Int : 184 ms QRS Dur : 090 ms QT Int : 524 ms P-R-T Axes : 047 002 127 degrees QTc Int : 540 ms Normal sinus rhythm [address] & T wave abnormality, consider lateral ischemia Abnormal ECG Confirmed by BLACK HATCH, PARDEEP ([id number]), editor book BOBBY VELA ([id number]) on 05/04/2021 1:43:01 PM Referred By: ODETTE Confirmed By:PARDEEP CLEANING MD
--- NOTE | 2021-05-03 17:14 | CT_ITS ---
STUDY: CT Abdomen And Pelvis W/ Contrast Injection 05/03/2021 7:52 PM REASON FOR EXAM: Female, 76 years old. ABDOMINAL PAIN abdominal pain TECHNIQUE: Transaxial images were obtained without oral contrast, and IV 100mL Isovue-300 intravenous contrast. Individualized dose optimization techniques were used for this CT. COMPARISON: None. FINDINGS: There are atherosclerotic calcifications of visualized coronary arteries. The visualized portions of the heart are within normal limits. Normal liver. Normal gallbladder and extrahepatic biliary system. Normal spleen. Normal pancreas. Normal bilateral adrenal glands. No acute findings of the right kidney. Left mild hydronephrosis. Moderate left hydroureter. Obstructing stone visualized in the distal left ureter measuring 6.2 mm. Smaller nonobstructing stone seen in the distal left ureter measuring 2.6 mm. Focal wall thickening of the antrum of stomach. This can suggest a gastritis. Normal small intestine. Stool throughout the colon. There is non-visualization of the appendix. There are calcifications of the abdominal aorta. This is consistent for atherosclerotic disease. There is no abdominal aortic aneurysm. Normal inferior vena cava. Subcentimeter mesenteric lymph nodes. Urinary bladder wall has wall thickening. This can be related to a partially contractile state. However, a cystitis is not excluded. Urinalysis should be performed in an effort to exclude cystitis. There is absence of the uterus consistent with a prior hysterectomy. Normal abdominal wall. There are diffuse degenerative changes of the visualized lumbar spine. There is metallic hardware noted in the right hip. IMPRESSION: (NOT LISTED IN ORDER OF SIGNIFICANCE) Left mild hydronephrosis. Moderate left hydroureter. Obstructing stone visualized in the distal left ureter measuring 6.2 mm. Smaller nonobstructing stone seen in the distal left ureter measuring 2.6 mm. Urinary bladder wall has wall thickening. This can be related to a partially contractile state. However, a cystitis is not excluded. Urinalysis should be performed in an effort to exclude cystitis. Focal wall thickening of the antrum of stomach. This can suggest a gastritis. Electronically Signed: Abundio Don MD at 19:56 EDT Reading Location ID and State: [facility] / [place] , Service support , CT/Abdomen/Pelvis W IV Cont ONLY
[2021-05-03 18:25] LABS: Absolute Lymphocyte Count 2.51 X10^3/uL (0.83-4.51); Absolute Neutrophil Count 7.5 X10^3/uL (2.0-7.7); Basophil# 0.03 X10^3/uL; Basophil% 0.3 % (0-1); Eosinophil# 0.19 X10^3/uL; Eosinophils% 1.7 % (0-5); Hematocrit 39.3 % (37-47); Hemoglobin 12.2 g/dL (12.0-15.0); Lymphocyte # 2.51 X10^3/ul (0.83-4.51); Lymphocyte % 22.7 % (19-41); Mean Corpuscular Hgb 25.9 pg (27.0-32.0); Mean Corpuscular Volume 83.4 fL (81-99); Mean Platelet Vol. 9.8 fl (6.2-12.0); Monocyte# 0.84 X10^3/uL; Monocyte% 7.6 % (0-10); NRBC Flagged by Analyzer 0 % (0-5); Neutrophil # 7.46 X10^3/uL (2.7-7.7); Neutrophil % 67.4 % (47-70); Platelet Count 311 K/mm3 (150-450); RBC Distribution Width CV 15.9 % (11.6-14.6); RBC Distribution Width SD 47.5 fl (35.1-43.9); Red Blood Count 4.71 M/mm3 (4.2-5.4); White Blood Count 11.1 K/mm3 (4.4-11.0)
[2021-05-03 18:43] LABS: International Normalized Ratio 1.3; Prothrombin Time (Protime)PT. 15.3 SECONDS (11.7-14.9)
[2021-05-03 18:57] LABS: ALB/GLOB Ratio 0.6 RATIO (0.9-2.4); AST(SGOT) 32 U/L (15-37); Alanine Aminotransfer ALT/SGPT 17 U/L (13-56); Albumin, Serum 2.7 g/dL (3.2-5.0); Alkaline Phosphatase 135 U/L (45-117); Anion Gap 4 (5-15); BUN 15 mg/dL (7-18); Calcium,Total 9.4 mg/dL (8.5-10.1); Chloride 104 mmol/L (98-107); EST Glomerular Filtration Rate 57 mL/min (>60); Est Glom Filt Rate - Afr Amer 69 mL/min (>60); Estimated Creatinine Clearance 33.84 ml/min; Globulin 4.3 g/dL (2.2-4.2); Glucose 91 mg/dL (74-106); Potassium 4.8 mmol/L (3.5-5.1); Sodium Level 140 mmol/L (136-145); Troponin-I HS 12 pg/mL (3.0-54.0)
--- NOTE | 2021-05-03 19:23 | EDS_ITS ---
HPI History of Present Illness Chief Complaint: General Illness Narrative Narrative: 76-year-old female sent in by her primary care physician for a PEG tube. Apparently she failed her swallow evaluation and was given option for PEG tube. Nobody spoke with the surgeon prior to her arrival. Patient with extensive medical history.She has no specific complaints currently except for wanting to eat. She has been n.p.o. 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 Cellulitis of right leg Congestive heart failure (CHF) Diabetic ulcer of both lower extremities Diastolic CHF Essential hypertension GERD (gastroesophageal reflux disease) History of DVT (deep vein thrombosis) Hyperlipidemia Multiple sclerosis LAURITA (obstructive sleep apnea) Paroxysmal atrial fibrillation Peripheral vascular disease Trigeminal neuralgia Type 2 diabetes mellitus Ulcer of left lower extremity with fat layer exposed Ulcer of right lower extremity with fat layer exposed Venous insufficiency of both lower extremities Home Medications amiodarone 200 mg PO DAILY 04/09/18 [History Last Taken 10/21/20] duloxetine 60 mg PO DAILY 04/09/18 [History Last Taken 10/21/20] magnesium oxide 400 mg PO BID 04/09/18 [History Last Taken 10/21/20] hydralazine 50 mg PO TID 01/04/19 [History Last Taken 10/21/20] apixaban 5 mg PO BID 02/07/19 [History Last Taken 10/21/20] atorvastatin 20 mg PO QHS 08/04/19 [History Last Taken 10/20/20] omeprazole 20 mg PO DAILY 08/04/19 [History Last Taken 10/21/20] albuterol sulfate 2.5 mg INHALATION Q2H PRN PRN vial.neb. 08/12/19 [Rx Last Taken Unknown] Lactobacillus rhamnosus GG 1 cap PO DAILY 10/21/20 [History Last Taken 10/20/20] psyllium 1 packet PO DAILY 10/21/20 [History Last Taken 10/20/20] acetaminophen 325 mg tablet 650 mg PO Q6H PRN tab 03/29/21 [History Last Taken Unknown] amlodipine 2.5 mg tablet 2.5 mg PO DAILY tab 03/29/21 [History Last Taken Unknown] bisacodyl 5 mg tablet,delayed release 5 mg PO DAILY PRN tab 03/29/21 [History Last Taken Unknown] carbamazepine 400 mg tablet,extended release,12 hr 400 mg PO QHS tab 03/29/21 [History Last Taken Unknown] gabapentin 300 mg capsule 300 mg PO BID cap 03/29/21 [History Last Taken Unknown] polyethylene glycol 3350 17 gram/dose oral powder 17 g PO DAILY 03/29/21 [History Last Taken Unknown] tramadol 50 mg tablet 50 mg PO Q8H PRN 03/29/21 [History Last Taken Unknown] nitrofurantoin monohyd/m-cryst 100 mg PO Q12 #20 capsule 04/24/21 [Rx Last Taken Unknown] D5 %-0.45 % sodium chloride DAILY 05/03/21 [History Last Taken Unknown] Allergy/AdvReac Type Severity Reaction Status Date / Time codeine Allergy Unknown Hives Verified 05/03/21 16:48 cefazolin Allergy Rash Verified 05/03/21 16:48 ciprofloxacin [From Cipro] Allergy Hives Verified 05/03/21 16:48 ciprofloxacin HCl Allergy Hives Verified 05/03/21 16:48 [From Cipro] Latex, Natural Rubber Allergy Rash Verified 05/03/21 16:48 Penicillins [PCN] Allergy Hives Verified 05/03/21 16:48 vancomycin Allergy Angioedema Verified 05/03/21 16:48 adhesive tape AdvReac Rash Verified 05/03/21 16:48 Family History Father Heart disease Cancer prostate Mother Hypertension Cancer mets but unsure where to Breast cancer Brother Diabetes Hypertension Surgical History History of cataract surgery History of cholecystectomy History of hernia repair History of tonsillectomy and adenoidectomy History of total hysterectomy Presence of coronary angioplasty implant and graft (~08/29/12) S/P CABG (coronary artery bypass graft) (~01/02/11) Social History Smoking Status: Former smoker how long ago did patient quit smokin alcohol intake: never substance use type: does not use caffeine: Yes Type: coffee Number of servings: 1 additional social history: DOES NOT USE ASPIRIN DOES US IBUPROFEN ROS ROS ED Constitutional Constitutional ED: Denies chills or fever(s) Eyes Eyes: Denies blurry vision or diplopia ENT ENT ED: Denies rhinorrhea or sore throat Cardiovascular Cardiovascular: Denies chest pain or palpitations Respiratory/Chest Respiratory/Chest: Denies cough or dyspnea Gastrointestinal Gastrointestinal: Denies abdominal pain, nausea or vomiting Genitourinary Genitourinary ED: Denies dysuria Musculoskeletal Musculoskeletal: Denies arthralgias or myalgias Integumentary Denies rash Neurologic Neurologic: Denies headache(s) EXAM Physical Exam Const Vital Signs: 05/03/21 16:48 05/03/21 17:07 05/03/21 19:50 Temperature 98.0 F 97.7 F L Temperature Source Oral Temporal Pulse Rate 63 Respiratory Rate 16 18 Respiratory Pattern Normal Blood Pressure 154/56 H 143/53 H Blood Pressure Mean 88 83 Pulse Ox 97 Oxygen Delivery Method Nasal Cannula Positive obese General Appearance ED: NAD; Negative for pallor Nutritional Appearance: obese HEENT Reports dry mucous membranes Negative for trauma Mouth ED: Yes dry mucous membranes Mouth: dry mucous membranes Eyes PERRL and EOMs intact bilaterally Neck no lymphadenopathy and supple Resp normal respiratory effort and clear to auscultation bilaterally Cardio regular rate and regular rhythm GI normal to inspection, nondistended, normoactive bowel sounds Neuro oriented x3 and CN's II-XII intact bilaterally Sensorium / Orientation: alert Psych mental status grossly normal Skin General Skin Exam: Negative for jaundice or pallor MDM MDM MDM Narrative Medical decision making narrative: Patient sent in for a consult for PEG tube placement. Nobody is spoken with the surgeon prior to arrival. She did not pass her swallow evaluation outpatient. Patient has no specific complaints currently. I spoke with Dr. Rivera who gave the lab work and imaging he wanted to have performed. CBC shows a white blood cell count of 11.1, hemoglobin 12.2, hematocrit 39.3, platelets 311. PT slightly prolonged at 15.3, INR normal creatinine normal. Electrolytes normal. LFTs within normal limits with exception of an alkaline phosphatase of 135. High-sensitivity troponin is 12. Albumin slightly low at 2.7. EKG is sinus rhythm with a ventricular rate of 64 bpm with Q waves inversions in leads I and aVL. Troponin is 12. CT of the abdomen pelvis shows a ureteral calculi on the left with some hydronephrosis and hydroureter. Patient is not experiencing any pain. Her urinalysis does show some occult blood, leukocyte esterase 500, greater than 100 white blood cells. No bacteria. Urine was sent for culture. After speaking with the hospitalist he recommended starting aspirin and which was ordered. Patient was ordered 500 cc of IV fluids. She is kept n.p.o. Patient will be admitted to the hospital for surgical consult for PEG tube placement. She remained stable prior to admission. Impression: 1. Leukocytosis 2. Left-sided ureteral calculi 3. Hydronephrosis 4. Hydroureter 5. UTI 6. Presentation for PEG tube placement 7. Dysphagia 8. Hematuria Lab Data Labs: Laboratory Results - last 24 hr 05/03/21 05/03/21 05/03/21 18:16 18:16 18:16 WBC 11.1 H RBC 4.71 Hgb 12.2 Hct 39.3 MCV 83.4 MCH 25.9 L MCHC 31.0 L RDW Std Deviation 47.5 H RDW Coeff of Carissa 15.9 H Plt Count 311 MPV 9.8 Immature Gran % (Auto) 0.300 Neut % (Auto) 67.4 Lymph % (Auto) 22.7 [place] % (Auto) 7.6 Eos % (Auto) 1.7 Baso % (Auto) 0.3 Absolute Neuts (auto) 7.5 Absolute Lymphs (auto) 2.51 Nucleated RBC % 0 PT 15.3 H INR 1.3 Sodium 140 Potassium 4.8 Chloride 104 Carbon Dioxide 32.0 Anion Gap 4 L BUN 15 Creatinine 1.00 Estim Creat Clear Calc 33.84 Est GFR (MDRD) Af Amer 69 Est GFR (MDRD) Non-Af 57 L BUN/Creatinine Ratio 15.0 Glucose 91 Calcium 9.4 Total Bilirubin 0.40 AST 32 ALT 17 Alkaline Phosphatase 135 H Troponin I High Sens 12 Total Protein 7.0 Albumin 2.7 L Globulin 4.3 H Albumin/Globulin Ratio 0.6 L Urine Color Urine Clarity Urine pH Ur Specific [place] Urine Protein Urine Glucose (UA) Urine Ketones Urine Occult Blood Urine Nitrite Urine Bilirubin Urine Urobilinogen Ur Leukocyte Esterase Urine RBC Urine WBC Ur Squamous Epith Cells Urine Bacteria Urine Mucus 05/03/21 19:40 WBC RBC Hgb Hct MCV MCH MCHC RDW Std Deviation RDW Coeff of [place] Plt Count MPV Immature Gran % (Auto) Neut % (Auto) Lymph % (Auto) [place] % (Auto) Eos % (Auto) Baso % (Auto) Absolute Neuts (auto) Absolute Lymphs (auto) Nucleated RBC % PT INR Sodium Potassium Chloride Carbon Dioxide Anion Gap BUN Creatinine Estim Creat Clear Calc Est GFR (MDRD) Af Amer Est GFR (MDRD) Non-Af BUN/Creatinine Ratio Glucose Calcium Total Bilirubin AST ALT Alkaline Phosphatase Troponin I High Sens Total Protein Albumin Globulin Albumin/Globulin Ratio Urine Color Yellow Urine Clarity Turbid Urine pH 6.5 Ur Specific [place] 1.015 Urine Protein 100 H Urine Glucose (UA) Normal Urine Ketones Negative Urine Occult Blood 50 H Urine Nitrite Negative Urine Bilirubin Negative Urine Urobilinogen Normal Ur Leukocyte Esterase 500 H Urine RBC 0 SEEN Urine WBC >100 SEEN Ur Squamous Epith Cells 0 SEEN Urine Bacteria 0 SEEN Urine Mucus 0 SEEN Radiography Diagnostic Testing: Clinical Impression(s) from Imaging Studies Abdomen/Pelvis CT 05/03/21 17:14 Discharge Plan Triage Chief Complaint: General Illness ED Provider: Stephane Fontaine Dx/Rx/DC Orders Prescriptions: No Action amlodipine 2.5 mg tablet 2.5 mg PO DAILY RF: 0 carbamazepine 400 mg tablet extended release 12 hr 400 mg PO QHS RF: 0 gabapentin 300 mg capsule 300 mg PO BID RF: 0 polyethylene glycol 3350 17 gram/dose powder 17 g PO DAILY RF: 0 tramadol 50 mg tablet 50 mg PO Q8H PRN (Reason: Pain) RF: 0 bisacodyl 5 mg tablet,delayed release (DR/EC) 5 mg PO DAILY PRN (Reason: Constipation) RF: 0 amiodarone 200 MG tablet 200 mg PO DAILY RF: 0 magnesium oxide 400 MG tablet 400 mg PO BID RF: 0 duloxetine 60 MG capsule,delayed release(DR/EC) 60 mg PO DAILY RF: 0 hydralazine 50 MG tablet 50 mg PO TID RF: 0 apixaban 2.5 MG tablet 5 mg PO BID RF: 0 atorvastatin 20 MG tablet 20 mg PO QHS RF: 0 omeprazole 20 MG capsule 20 mg PO DAILY RF: 0 albuterol sulfate 2.5 MG/3 ML solution for nebulization 2.5 mg inhalation Q2H PRN PRN (Reason: SOB/Wheezing) RF: 0 psyllium Packet 1 packet PO DAILY RF: 0 Lactobacillus rhamnosus GG 10 billion cell Capsule 1 cap PO DAILY RF: 0 acetaminophen 325 mg tablet 650 mg PO Q6H PRN (Reason: PAIN AND FEVER) RF: 0 nitrofurantoin monohyd/m-cryst [nitrofurantoin monohyd/m-cryst] 100 MG capsule 100 mg PO Q12 Qty: 20 RF: 0 D5 %-0.45 % sodium chloride Parenteral Solution DAILY RF: 0 Primary Care Provider: Uriel Mac
[2021-05-03 19:50] VITALS: BP 143/53; RESP 18; TEMP 36.5
[2021-05-03 19:51] LABS: Bacteria 0 SEEN /hpf (None Seen); Mucous, Urine 0 SEEN /hpf (<or=2+); Red Blood Cells-Urine 0 SEEN /hpf (0-5); Squamous Epithelial Cells - UA 0 SEEN /hpf (5-10)
[2021-05-03 19:55] LABS: Color, Urine Yellow (Yellow); Glucose, Dipstick Normal (Normal); Ketone-Dipstick Negative (Negative); Leukocyte Esterase-Dipstick 500 /ul (Negative); Nitrite-Dipstick Negative (Negative); Occult Blood-Urine 50 /ul (Negative); Protein-Dipstick 100 mg/dl (Negative); Specific Gravity, Urine 1.015 (1.002-1.030); Urine Bilirubin Dipstick Negative (Negative); Urine Clarity Turbid (Clear); Urine Urobilinogen Normal (Normal); Urine pH 6.5 (5.0 - 8.0)
[2021-05-03 20:02] LABS: White Blood Cells >100 SEEN /hpf (0-5)
--- NOTE | 2021-05-03 21:40 | PCM.HP.STD ---
[facility] - General General Date of Admission: 05/03/21 HPI Narrative SINA VIZCARRA, is a 76 F with a significant history of multiple sclerosis; dementia; CAD status post CABG in 2012, 1 stents in ; and 3 stents placed at one time around 2007 to 2008; atrial fibrillation on Xarelto; obstructive sleep apnea; recurrent UTI; Brain lesion causing trigeminal neuralgia and getting as needed trigeminal nerve block, and on scheduled carbamazepine; and and chronic nasal cannula oxygen use at the [facility] ([place] where she lives presenting to the hospital for a PEG tube placement. Reportedly patient has been aspirating and choking on her own saliva. She failed swallow eval outpatient and was sent to the emergency department for a PEG tube placement. She failed a swallow eval on the same day of presentation. Emergent department the discussed the case with Dr. Qiu, general surgery who recommended that due to extensive patient's cardiac history patient will need cardiology clearance before a PEG tube placement. Patient reports feeling very hungry. Up to a day before presentation patient was having burning urination. Patient is currently on antibiotics for UTI. 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 Cellulitis of right leg Congestive heart failure (CHF) Diabetic ulcer of both lower extremities Diastolic CHF Essential hypertension GERD (gastroesophageal reflux disease) History of DVT (deep vein thrombosis) Hyperlipidemia Multiple sclerosis LAURITA (obstructive sleep apnea) Paroxysmal atrial fibrillation Peripheral vascular disease Trigeminal neuralgia Type 2 diabetes mellitus Ulcer of left lower extremity with fat layer exposed Ulcer of right lower extremity with fat layer exposed Venous insufficiency of both lower extremities Home Medications amiodarone 200 mg PO DAILY 04/09/18 [History Last Taken 10/21/20] duloxetine 60 mg PO DAILY 04/09/18 [History Last Taken 10/21/20] magnesium oxide 400 mg PO BID 04/09/18 [History Last Taken 10/21/20] hydralazine 50 mg PO TID 01/04/19 [History Last Taken 10/21/20] apixaban 5 mg PO BID 02/07/19 [History Last Taken 10/21/20] atorvastatin 20 mg PO QHS 08/04/19 [History Last Taken 10/20/20] omeprazole 20 mg PO DAILY 08/04/19 [History Last Taken 10/21/20] albuterol sulfate 2.5 mg INHALATION Q2H PRN PRN vial.neb. 08/12/19 [Rx Last Taken Unknown] Lactobacillus rhamnosus GG 1 cap PO DAILY 10/21/20 [History Last Taken 10/20/20] psyllium 1 packet PO DAILY 10/21/20 [History Last Taken 10/20/20] acetaminophen 325 mg tablet 650 mg PO Q6H PRN tab 03/29/21 [History Last Taken Unknown] amlodipine 2.5 mg tablet 2.5 mg PO DAILY tab 03/29/21 [History Last Taken Unknown] bisacodyl 5 mg tablet,delayed release 5 mg PO DAILY PRN tab 03/29/21 [History Last Taken Unknown] carbamazepine 400 mg tablet,extended release,12 hr 400 mg PO QHS tab 03/29/21 [History Last Taken Unknown] gabapentin 300 mg capsule 300 mg PO BID cap 03/29/21 [History Last Taken Unknown] polyethylene glycol 3350 17 gram/dose oral powder 17 g PO DAILY 03/29/21 [History Last Taken Unknown] tramadol 50 mg tablet 50 mg PO Q8H PRN 03/29/21 [History Last Taken Unknown] nitrofurantoin monohyd/m-cryst 100 mg PO Q12 #20 capsule 04/24/21 [Rx Last Taken Unknown] D5 %-0.45 % sodium chloride DAILY 05/03/21 [History Last Taken Unknown] Allergy/AdvReac Type Severity Reaction Status Date / Time codeine Allergy Unknown Hives Verified 05/03/21 16:48 cefazolin Allergy Rash Verified 05/03/21 16:48 ciprofloxacin [From Cipro] Allergy Hives Verified 05/03/21 16:48 ciprofloxacin HCl Allergy Hives Verified 05/03/21 16:48 [From Cipro] Latex, Natural Rubber Allergy Rash Verified 05/03/21 16:48 Penicillins [PCN] Allergy Hives Verified 05/03/21 16:48 vancomycin Allergy Angioedema Verified 05/03/21 16:48 adhesive tape AdvReac Rash Verified 05/03/21 16:48 Family History Father Heart disease Cancer prostate Mother Hypertension Cancer mets but unsure where to Breast cancer Brother Diabetes Hypertension Surgical History History of cataract surgery History of cholecystectomy History of hernia repair History of tonsillectomy and adenoidectomy History of total hysterectomy Presence of coronary angioplasty implant and graft (~08/29/12) S/P CABG (coronary artery bypass graft) (~01/02/11) Social History Smoking Status: Former smoker how long ago did patient quit smokin alcohol intake: never substance use type: does not use caffeine: Yes Type: coffee Number of servings: 1 additional social history: DOES NOT USE ASPIRIN DOES US IBUPROFEN ROS ROS Narrative Pertinent positives and pertinent negatives as noted in HPI. All other systems were reviewed and are negative. Vital Signs Vital Signs Vital Signs: 05/03/21 16:48 05/03/21 17:07 05/03/21 19:50 Temperature 98.0 F 97.7 F L Temperature Source Oral Temporal Pulse Rate 63 Respiratory Rate 16 18 Respiratory Pattern Normal Blood Pressure 154/56 H 143/53 H Blood Pressure Mean 88 83 Pulse Ox 97 Oxygen Delivery Method Nasal Cannula Weight Weight: 98.4 kg Body Mass Index (BMI) 42.3 Physical Exam Narrative Physical exam: General: Well-nourished, well-developed. Head: Normocephalic, atraumatic, no tenderness Eyes: Vision is grossly intact. EOMI ENT, no trauma, dry mucous membranes, no rhinorrhea Neck: Nontender, full range of motion, no spinal tenderness, deformities, step-off CVS: Regular rate and rhythm. S1-S2 present. No murmur, gallop or rub. Respiratory : Mild scattered rales; chest wall nontender, no wheezing Abdomen: Soft, nontender, nondistended, normal bowel sounds, no masses : Deferred Back: Nontender, no CVA tenderness, no midline spinal tenderness, deformities, step-offs Extremities: Bilateral lower legs and feet pitting edema. Nontender full range of motion, no trauma Skin: Normal color, no trauma, abrasions Neuro: Alert, oriented, cranial nerves II through XII grossly intact. Psychiatry: Normal mood. Normal affect. Not depressed. Not anxious. Results Lab / Micro Data Result Diagrams: 05/03/21 18:16 05/03/21 18:16 Labs: Laboratory Results - last 24 hr 05/03/21 18:16: WBC 11.1 H, RBC 4.71, Hgb 12.2, Hct 39.3, MCV 83.4, MCH 25.9 L, MCHC 31.0 L, RDW Std Deviation 47.5 H, RDW Coeff of Carissa 15.9 H, Plt Count 311, MPV 9.8, Immature Gran % (Auto) 0.300, Neut % (Auto) 67.4, Lymph % (Auto) 22.7, [place] % (Auto) 7.6, Eos % (Auto) 1.7, Baso % (Auto) 0.3, Absolute Neuts (auto) 7.5, Absolute Lymphs (auto) 2.51, Nucleated RBC % 0 05/03/21 18:16: PT 15.3 H, INR 1.3 05/03/21 18:16: Sodium 140, Potassium 4.8, Chloride 104, Carbon Dioxide 32.0, Anion Gap 4 L, BUN 15, Creatinine 1.00, Estim Creat Clear Calc 33.84, Est GFR (MDRD) Af Amer 69, Est GFR (MDRD) Non-Af 57 L, BUN/Creatinine Ratio 15.0, Glucose 91, Calcium 9.4, Total Bilirubin 0.40, AST 32, ALT 17, Alkaline Phosphatase 135 H, Troponin I High Sens 12, Total Protein 7.0, Albumin 2.7 L, Globulin 4.3 H, Albumin/Globulin Ratio 0.6 L 05/03/21 19:40: Urine Color Yellow, Urine Clarity Turbid, Urine pH 6.5, Ur Specific [place] 1.015, Urine Protein 100 H, Urine Glucose (UA) Normal, Urine Ketones Negative, Urine Occult Blood 50 H, Urine Nitrite Negative, Urine Bilirubin Negative, Urine Urobilinogen Normal, Ur Leukocyte Esterase 500 H, Urine RBC 0 SEEN, Urine WBC >100 SEEN, Ur Squamous Epith Cells 0 SEEN, Urine Bacteria 0 SEEN, Urine Mucus 0 SEEN Radiology Impression Abdomen/Pelvis CT 05/03/21 17:14 Assessment & Plan Assessment/Plan (1) Feeding difficulty in adult: PLAN: Feeding difficulty and aspiration Patient had a modified barium swallow on the same day of presentation. Reportedly patient was on full liquid diet previously and Heimlich maneuver had to be performed on 04/29/2021 due to choking on pur?ed solids. Review of outpatient records shows modified barium swallow. Per the modified barium swallow patient was diagnosed as having severe oropharyngeal dysphagia General surgery consult. Per General Surgery recommendation cardiology has been consulted for cardiac clearance. We will keep patient n.p.o. PT/INR showed a PT of 15.3 and INR of 1.3. Patient was on home Xarelto, held at this time. Gentle IV hydration while n.p.o. Recurrent UTI CBC reviewed showed white count of 11.[address] was visualized and independently interpreted. I agree with reinterpretation of left mild hydronephrosis; moderate left hydroureter; obstructive stone visualized in the distal left ureter (6.2mm); nonobstructing stone in the left distal ureter (2.6mm). Thickening of bladder wall. Patient was to see urology outpatient. Consider discussion with urology. Urinalysis presentation was abnormal. Urine WBC was more than 100 as previous. There was no epithelial cells. There was no bacteria. Urine nitrite was negative. Urine leukocyte esterase was 500 as previous. Previous urine culture was reviewed. Urine culture on 04/24/2021 showed Klebsiella pneumonia pansensitive and ESBL negative. Also patient has a previous history of urine culture showing presumptive E. coli (10/21/2020) and Enterobacter cloacae (08/09/2019) Patient was on Macrodantin outpatient. Patient with multiple allergies and currently n.p.o. Aztreonam ordered. Recent urine culture reviewed showed Klebsiella. Trend CBC and BMP. History of atrial fibrillation Patient is currently in sinus rhythm with rates in the 60s. Patient is on p.o. amiodarone. Patient been n.p.o. We will start patient on IV amiodarone. DVT prophylaxis:SCD Charges/Coding Visit Charges OBSV E&M: 61663 Initial observation care L3
[2021-05-03 21:54] VITALS: BP 138/71; PULSE 69; RESP 14; TEMP 36.6; O2SAT 96
[2021-05-03 22:24] VITALS: BP 140/55; PULSE 63; RESP 18; TEMP 36.6; O2SAT 97; BMI 38.0
[2021-05-03] MEDS: 0.9% Normal Saline 1,000 ML 50 ML IV (23:16)
--- NOTE | 2021-05-03 23:19 | NURSING ---
pt requested family to be called about her being admitted. Best the daughter in law notified
[2021-05-03] MEDS: 0.9% Saline Lock 10 ML Syringe IV (23:51)
[2021-05-03 23:52] VITALS: BP 150/53; PULSE 70; RESP 20; TEMP 36.7; O2SAT 98
[2021-05-03 23:55] VITALS: RESP 22; O2SAT 95
[2021-05-04] VITALS (26 sets, daily range): BP systolic 132–167; BP diastolic 50–79; PULSE 57–66; RESP 15–23; TEMP 36.3–37; O2SAT 87–100; BMI 38.0
[2021-05-04 06:36] LABS: Absolute Lymphocyte Count 1.78 X10^3/uL (0.83-4.51); Basophil# 0.03 X10^3/uL; Basophil% 0.4 % (0-1); Eosinophils% 2.6 % (0-5); Hematocrit 32.9 % (37-47); Hemoglobin 10.2 g/dL (12.0-15.0); Lymphocyte # 1.78 X10^3/ul (0.83-4.51); Lymphocyte % 23.2 % (19-41); Mean Corpuscular Hgb 25.7 pg (27.0-32.0); Mean Corpuscular Volume 82.9 fL (81-99); Mean Platelet Vol. 9.9 fl (6.2-12.0); Monocyte% 7.8 % (0-10); NRBC Flagged by Analyzer 0 % (0-5); Neutrophil # 5.03 X10^3/uL (2.7-7.7); Neutrophil % 65.5 % (47-70); Platelet Count 297 K/mm3 (150-450); RBC Distribution Width CV 15.8 % (11.6-14.6); RBC Distribution Width SD 47.6 fl (35.1-43.9); Red Blood Count 3.97 M/mm3 (4.2-5.4); White Blood Count 7.7 K/mm3 (4.4-11.0)
[2021-05-04 06:57] LABS: Anion Gap 4 (5-15); BUN 13 mg/dL (7-18); BUN/Creat Ratio 14.2 RATIO (10-20); Calcium,Total 8.8 mg/dL (8.5-10.1); Chloride 108 mmol/L (98-107); Creatinine, Serum 0.91 mg/dL (0.55-1.02); EST Glomerular Filtration Rate 63 mL/min (>60); Est Glom Filt Rate - Afr Amer 77 mL/min (>60); Estimated Creatinine Clearance 37.19 ml/min; Glucose 109 mg/dL (74-106); Magnesium 2.1 mg/dL (1.6-2.6); Potassium 3.5 mmol/L (3.5-5.1); Sodium Level 143 mmol/L (136-145)
--- NOTE | 2021-05-04 08:06 | CON.PCM.CA_ITS ---
Assessment & Plan Assessment/Plan (1) Atherosclerotic heart disease of [place] coronary artery without angina pectoris: (2) Diastolic CHF: QUALIFIERS: Heart failure chronicity: chronic Qualified Code(s): I50.32 - Chronic diastolic (congestive) heart failure (3) Paroxysmal atrial fibrillation: (4) Essential hypertension: (5) Hyperlipidemia: PLAN: * Pt does not have any symptoms on angina, CHF. She is in NSR. Reviewed stress from 2017 and echo from 2019. Feel that from a cardiac standpoint okay to proceed with surgery. Okay to hold eliqius prior to surgery and resume after. Pt has not had any eliquis since admission. Post surgery would resume her all of her home cardiac medication. This case will be discussed with Dr. Barajas HPI Consult Data Date of Consult: 05/04/21 HPI Narrative HPI Narrative: SINA VIZCARRA, is a 76 F who we were asked to consult on for a cardiac clearance for a peg tube placement. She failed her barium swallow test yesterday based on this she was brought to the ER for further evaluation. It is noted that she has been aspirating and choking on her saliva. She has a history of coronary artery disease status post bypass surgery with a ARREGUIN to the LAD and SVG to the obtuse marginal branch in December 2010, drug- eluting stenting to RCA in August 2012, paroxysmal atrial fibrillation, hypertension, hyperlipidemia, and diabetes. Patient lives in an extended care facility, and in mostly in a wheelchair d/t debility from her MS. She denies chest, arm, jaw, or neck discomfort. She denies palpitations, shortness of breath with activity, shortness of breath at rest, orthopnea, cough, or PND. She does have chronic bilateral lower extremity edema. She denies lightheadedness, dizziness, near-syncope, or syncope. She denies fatigue . She has been NPO and is currently only on amiodarone IV d/t her NPO status. [facility] Medical History (Updated 05/04/21 @ 08:30 by Lisa RUIZ, PA) Atherosclerotic heart disease of [place] coronary artery without angina pectoris Carcinoma of lip Cellulitis of right leg Congestive heart failure (CHF) Diabetic ulcer of both lower extremities Diastolic CHF Essential hypertension GERD (gastroesophageal reflux disease) History of DVT (deep vein thrombosis) Hyperlipidemia Multiple sclerosis LAURITA (obstructive sleep apnea) Paroxysmal atrial fibrillation Peripheral vascular disease Trigeminal neuralgia Type 2 diabetes mellitus Ulcer of left lower extremity with fat layer exposed Ulcer of right lower extremity with fat layer exposed Venous insufficiency of both lower extremities Home Medications amiodarone 200 mg PO DAILY 04/09/18 [History Last Taken 10/21/20] duloxetine 60 mg PO DAILY 04/09/18 [History Last Taken 10/21/20] magnesium oxide 400 mg PO BID 04/09/18 [History Last Taken 10/21/20] hydralazine 50 mg PO TID 01/04/19 [History Last Taken 10/21/20] apixaban 5 mg PO BID 02/07/19 [History Last Taken 10/21/20] atorvastatin 20 mg PO QHS 08/04/19 [History Last Taken 10/20/20] omeprazole 20 mg PO DAILY 08/04/19 [History Last Taken 10/21/20] albuterol sulfate 2.5 mg INHALATION Q2H PRN PRN vial.neb. 08/12/19 [Rx Last Taken Unknown] Lactobacillus rhamnosus GG 1 cap PO DAILY 10/21/20 [History Last Taken 10/20/20] psyllium 1 packet PO DAILY 10/21/20 [History Last Taken 10/20/20] acetaminophen 325 mg tablet 650 mg PO Q6H PRN tab 03/29/21 [History Last Taken Unknown] amlodipine 2.5 mg tablet 2.5 mg PO DAILY tab 03/29/21 [History Last Taken Unknown] bisacodyl 5 mg tablet,delayed release 5 mg PO DAILY PRN tab 03/29/21 [History Last Taken Unknown] carbamazepine 400 mg tablet,extended release,12 hr 400 mg PO QHS tab 03/29/21 [History Last Taken Unknown] gabapentin 300 mg capsule 300 mg PO BID cap 03/29/21 [History Last Taken Unknown] polyethylene glycol 3350 17 gram/dose oral powder 17 g PO DAILY 03/29/21 [History Last Taken Unknown] tramadol 50 mg tablet 50 mg PO Q8H PRN 03/29/21 [History Last Taken Unknown] nitrofurantoin monohyd/m-cryst 100 mg PO Q12 #20 capsule 04/24/21 [Rx Last Taken Unknown] D5 %-0.45 % sodium chloride DAILY 05/03/21 [History Last Taken Unknown] Allergy/AdvReac Type Severity Reaction Status Date / Time codeine Allergy Unknown Hives Verified 05/03/21 16:48 cefazolin Allergy Rash Verified 05/03/21 16:48 ciprofloxacin [From Cipro] Allergy Hives Verified 05/03/21 16:48 ciprofloxacin HCl Allergy Hives Verified 05/03/21 16:48 [From Cipro] Latex, Natural Rubber Allergy Rash Verified 05/03/21 16:48 Penicillins [PCN] Allergy Hives Verified 05/03/21 16:48 vancomycin Allergy Angioedema Verified 05/03/21 16:48 adhesive tape AdvReac Rash Verified 05/03/21 16:48 Family History Father Heart disease Cancer prostate Mother Hypertension Cancer mets but unsure where to Breast cancer Brother Diabetes Hypertension Surgical History History of cataract surgery History of cholecystectomy History of hernia repair History of tonsillectomy and adenoidectomy History of total hysterectomy Presence of coronary angioplasty implant and graft (~08/29/12) S/P CABG (coronary artery bypass graft) (~01/02/11) Social History Smoking Status: Former smoker how long ago did patient quit smokin alcohol intake: never substance use type: does not use caffeine: Yes Type: coffee Number of servings: 1 additional social history: DOES NOT USE ASPIRIN DOES US IBUPROFEN ROS Constitutional Constitutional: Denies chills, fever(s) or malaise Eyes Eyes: Denies blurry vision or discharge from eye(s) ENT HEENT: Reports dysphagia; Denies bleeding gums or neck pain Cardiovascular Cardiovascular: Reports pedal edema; Denies chest pain, dizziness, lightheadedness or palpitations Respiratory/Chest Respiratory/Chest: Denies cough or shortness of breath at rest Gastrointestinal Gastrointestinal: Reports as per HPI Musculoskeletal Musculoskeletal: Reports difficulty walking Physical Exam Const alert, oriented x3 and no apparent distress Nutritional Appearance: obese HEENT normocephalic, head/scalp atraumatic, hearing grossly normal bilaterally, external ears normal, external nose normal and moist oral mucous membranes Eyes PERRL, EOMs intact bilaterally, conjunctivae normal and no scleral icterus Neck full ROM, no lymphadenopathy and no JVD Resp normal respiratory effort, normal air movement, no retractions, no use of accessory muscles and clear to auscultation bilaterally Cardio regular rate, regular rhythm, S1 normal heart sound, S2 normal heart sound, no murmurs, no rub, no gallops, no clicks and no JVD Peripheral Pulses: pulses 2+ throughout GI normal to inspection, nondistended, normoactive bowel sounds, soft to palpation, non-tender and non-distended Extremity Extremity Narrative: +2 edema bilateral lower extremity Neuro oriented x3 and CN's II-XII intact bilaterally Risk Stratification Risk Stratification Applicable: No Charges/Coding Visit Charges Office Visits / Consults: 42222 IP Consult L4 Objective Data Vital Signs: Vital Signs Temp Pulse Resp BP Pulse Ox 98.1 F 62 16 150/61 H 90 05/04/21 08:00 05/04/21 08:00 05/04/21 08:00 05/04/21 08:00 05/04/21 08:00 Oxygen Flow Rate (L/min) 2 Oxygen Delivery Method Room Air Weight: 195 lb 1.745 oz Body Mass Index (BMI) 38.0 Intake & Output: Intake and Output for Last 24 Hours 05/02/21 05/03/21 05/04/21 23:59 23:59 23:59 Intake Total 600 / 604.44 617.39 / 617.39 Output Total 0 / 0 Balance 600 / 604.44 617.39 / 617.39 Lab / Micro Data Result Diagrams: 05/04/21 06:13 05/04/21 06:13 Labs: Laboratory Results - last 24 hr 05/03/21 18:16: WBC 11.1 H, RBC 4.71, Hgb 12.2, Hct 39.3, MCV 83.4, MCH 25.9 L, MCHC 31.0 L, RDW Std Deviation 47.5 H, RDW Coeff of Carissa 15.9 H, Plt Count 311, MPV 9.8, Immature Gran % (Auto) 0.300, Neut % (Auto) 67.4, Lymph % (Auto) 22.7, Baker % (Auto) 7.6, Eos % (Auto) 1.7, Baso % (Auto) 0.3, Absolute Neuts (auto) 7.5, Absolute Lymphs (auto) 2.51, Nucleated RBC % 0 05/03/21 18:16: PT 15.3 H, INR 1.3 05/03/21 18:16: Sodium 140, Potassium 4.8, Chloride 104, Carbon Dioxide 32.0, Anion Gap 4 L, BUN 15, Creatinine 1.00, Estim Creat Clear Calc 33.84, Est GFR (MDRD) Af Amer 69, Est GFR (MDRD) Non-Af 57 L, BUN/Creatinine Ratio 15.0, Glucose 91, Calcium 9.4, Total Bilirubin 0.40, AST 32, ALT 17, Alkaline Phosphatase 135 H, Troponin I High Sens 12, Total Protein 7.0, Albumin 2.7 L, Globulin 4.3 H, Albumin/Globulin Ratio 0.6 L 05/03/21 19:40: Urine Color Yellow, Urine Clarity Turbid, Urine pH 6.5, Ur Specific [place] 1.015, Urine Protein 100 H, Urine Glucose (UA) Normal, Urine Ketones Negative, Urine Occult Blood 50 H, Urine Nitrite Negative, Urine Bilirubin Negative, Urine Urobilinogen Normal, Ur Leukocyte Esterase 500 H, Urine RBC 0 SEEN, Urine WBC >100 SEEN, Ur Squamous Epith Cells 0 SEEN, Urine Bacteria 0 SEEN, Urine Mucus 0 SEEN 05/04/21 06:13: WBC 7.7, RBC 3.97 L, Hgb 10.2 L, Hct 32.9 L, MCV 82.9, MCH 25.7 L, MCHC 31.0 L, RDW Std Deviation 47.6 H, RDW Coeff of Carissa 15.8 H, Plt Count 297, MPV 9.9, Immature Gran % (Auto) 0.500, Neut % (Auto) 65.5, Lymph % (Auto) 23.2, Baker % (Auto) 7.8, Eos % (Auto) 2.6, Baso % (Auto) 0.4, Absolute Neuts (auto) 5.0, Absolute Lymphs (auto) 1.78, Nucleated RBC % 0 05/04/21 06:13: Sodium 143, Potassium 3.5, Chloride 108 H, Carbon Dioxide 31.0, Anion Gap 4 L, BUN 13, Creatinine 0.91, Estim Creat Clear Calc 37.19, Est GFR (MDRD) Af Amer 77, Est GFR (MDRD) Non-Af 63, BUN/Creatinine Ratio 14.2, Glucose 109 H, Calcium 8.8, Magnesium 2.1 Cardiology Labs/Tests 05/03/21 18:16: WBC 11.1 H, RBC 4.71, Hgb 12.2, Hct 39.3, MCV 83.4, MCH 25.9 L, MCHC 31.0 L, Plt Count 311, MPV 9.8, Immature Gran % (Auto) 0.300, Neut % (Auto) 67.4, Lymph % (Auto) 22.7, Baker % (Auto) 7.6, Eos % (Auto) 1.7, Baso % (Auto) 0.3, Absolute Neuts (auto) 7.5, Nucleated RBC % 0 05/03/21 18:16: PT 15.3 H, INR 1.3 05/03/21 18:16: Sodium 140, Potassium 4.8, Chloride 104, Carbon Dioxide 32.0, Anion Gap 4 L, BUN 15, Creatinine 1.00, Est GFR (MDRD) Af Amer 69, Est GFR (MDRD) Non-Af 57 L, BUN/Creatinine Ratio 15.0, Glucose 91, Calcium 9.4, Total Bilirubin 0.40 05/03/21 19:40: Urine Color Yellow, Urine Clarity Turbid, Urine pH 6.5, Ur Specific [place] 1.015, Urine Protein 100 H, Urine Glucose (UA) Normal, Urine Ketones Negative, Urine Occult Blood 50 H, Urine Nitrite Negative, Urine Bilirubin Negative, Urine Urobilinogen Normal, Ur Leukocyte Esterase 500 H, Urine RBC 0 SEEN, Urine WBC >100 SEEN 05/04/21 06:13: WBC 7.7, RBC 3.97 L, Hgb 10.2 L, Hct 32.9 L, MCV 82.9, MCH 25.7 L, MCHC 31.0 L, Plt Count 297, MPV 9.9, Immature Gran % (Auto) 0.500, Neut % (Auto) 65.5, Lymph % (Auto) 23.2, Baker % (Auto) 7.8, Eos % (Auto) 2.6, Baso % (A uto) 0.4, Absolute Neuts (auto) 5.0, Nucleated RBC % 0 05/04/21 06:13: Sodium 143, Potassium 3.5, Chloride 108 H, Carbon Dioxide 31.0, Anion Gap 4 L, BUN 13, Creatinine 0.91, Est GFR (MDRD) Af Amer 77, Est GFR (MDRD) Non-Af 63, BUN/Creatinine Ratio 14.2, Glucose 109 H, Calcium 8.8, Magnesium 2.1 Rhythm: SR EKG: ECHO 02/2019: Normal LV size. Left ventricular systolic function is normal. The estimated ejection fraction is 65 %. There is mild mitral annular calcification. Stress Test 2018: Normal pharmacologic myocardial perfusion stress test. Preserved ejection fraction. Radiography Diagnostic Testing: Radiology Impression Abdomen/Pelvis CT 05/03/21 17:14
[2021-05-04 08:53] LABS: Hemoglobin A1c 6.4 % (3.8-5.6)
--- NOTE | 2021-05-04 09:06 | CON.PCM.SX_ITS ---
Assessment & Plan Assessment/Plan (1) Swallowing dysfunction: PLAN: This is a 76-year-old female with a complex past medical history?most notably for multiple sclerosis, DVTs, and paroxysmal atrial fibrillation on Eliquis therapy who presents with difficulty swallowing and recent choking episode requiring Heimlich maneuver at her nursing facility. Yesterday, 05/03/2021 patient failed a modified barium swallow study with aspiration of both thin and nectar thick liquids. In talking with patient, she describes a delay in her swallowing reflex, but the overall cause is not completely clear. Patient underwent CT of the abdomen pelvis yesterday that showed some thickening of the gastric antrum potentially consistent with gastritis. Patient denies any history of peptic ulcer disease but does have a documented history of gastroesophageal reflux disease. Additionally, she was noted to have hydroureter and hydronephrosis on her CT. Given that she is asymptomatic and her renal function is normal, she will follow up outpatient for this issue per hospitalist service. I discussed the procedure for placing a PEG tube with the patient and she is interested in proceeding as described. However, she was not certain when her last Eliquis dose was taken. And reaching out to her nursing facility, they have record of her last dose being yesterday (05/03/2021) afternoon. Therefore, we will plan for PEG tube placement and endoscopy tomorrow afternoon to minimize patient's risk of bleeding complications. HPI Consult Data Date of Consult: 05/04/21 HPI Narrative HPI Narrative: SINA VIZCARRA, is a 76 F, with a past medical history inclusive of CHF, GERD, hypertension, DVT, obstructive sleep apnea, diabetes, multiple sclerosis and paroxysmal atrial fibrillation on Eliquis who presents to [facility] with complaints of dysphagia. Earlier this week she was at her nursing facility and required the Heimlich maneuver to dislodge some food stuff from her airway. Then yesterday she went for a modified barium swallow study but unfortunately failed with aspiration of both thin and nectar thick liquids. Surgery is asked to evaluate the patient for PEG tube placement. CT of the abdomen and pelvis was performed during patient's ER work-up and she is found to have left hydroureter and hydronephrosis. She also had a positive urinalysis. She denies any history of kidney stones. [facility] Medical History (Updated 05/04/21 @ 10:[address] Bayron Rivera MD) Atherosclerotic heart disease of [place] coronary artery without angina pectoris Carcinoma of lip Cellulitis of right leg Congestive heart failure (CHF) Diabetic ulcer of both lower extremities Diastolic CHF Essential hypertension GERD (gastroesophageal reflux disease) History of DVT (deep vein thrombosis) Hyperlipidemia Multiple sclerosis LAURITA (obstructive sleep apnea) Paroxysmal atrial fibrillation Peripheral vascular disease Trigeminal neuralgia Type 2 diabetes mellitus Ulcer of left lower extremity with fat layer exposed Ulcer of right lower extremity with fat layer exposed Venous insufficiency of both lower extremities Home Medications amiodarone 200 mg PO DAILY 04/09/18 [History Last Taken 10/21/20] duloxetine 60 mg PO DAILY 04/09/18 [History Last Taken 10/21/20] magnesium oxide 400 mg PO BID 04/09/18 [History Last Taken 10/21/20] hydralazine 50 mg PO TID 01/04/19 [History Last Taken 10/21/20] apixaban 5 mg PO BID 02/07/19 [History Last Taken 10/21/20] atorvastatin 20 mg PO QHS 08/04/19 [History Last Taken 10/20/20] omeprazole 20 mg PO DAILY 08/04/19 [History Last Taken 10/21/20] albuterol sulfate 2.5 mg INHALATION Q2H PRN PRN vial.neb. 08/12/19 [Rx Last Taken Unknown] Lactobacillus rhamnosus GG 1 cap PO DAILY 10/21/20 [History Last Taken 10/20/20] psyllium 1 packet PO DAILY 10/21/20 [History Last Taken 10/20/20] acetaminophen 325 mg tablet 650 mg PO Q6H PRN tab 03/29/21 [History Last Taken Unknown] amlodipine 2.5 mg tablet 2.5 mg PO DAILY tab 03/29/21 [History Last Taken Unknown] bisacodyl 5 mg tablet,delayed release 5 mg PO DAILY PRN tab 03/29/21 [History Last Taken Unknown] carbamazepine 400 mg tablet,extended release,12 hr 400 mg PO QHS tab 03/29/21 [History Last Taken Unknown] gabapentin 300 mg capsule 300 mg PO BID cap 03/29/21 [History Last Taken Unknown] polyethylene glycol 3350 17 gram/dose oral powder 17 g PO DAILY 03/29/21 [History Last Taken Unknown] tramadol 50 mg tablet 50 mg PO Q8H PRN 03/29/21 [History Last Taken Unknown] nitrofurantoin monohyd/m-cryst 100 mg PO Q12 #20 capsule 04/24/21 [Rx Last Taken Unknown] D5 %-0.45 % sodium chloride DAILY 05/03/21 [History Last Taken Unknown] Allergy/AdvReac Type Severity Reaction Status Date / Time codeine Allergy Unknown Hives Verified 05/03/21 16:48 cefazolin Allergy Rash Verified 05/03/21 16:48 ciprofloxacin [From Cipro] Allergy Hives Verified 05/03/21 16:48 ciprofloxacin HCl Allergy Hives Verified 05/03/21 16:48 [From Cipro] Latex, Natural Rubber Allergy Rash Verified 05/03/21 16:48 Penicillins [PCN] Allergy Hives Verified 05/03/21 16:48 vancomycin Allergy Angioedema Verified 05/03/21 16:48 adhesive tape AdvReac Rash Verified 05/03/21 16:48 Family History Father Heart disease Cancer prostate Mother Hypertension Cancer mets but unsure where to Breast cancer Brother Diabetes Hypertension Surgical History History of cataract surgery History of cholecystectomy History of hernia repair History of tonsillectomy and adenoidectomy History of total hysterectomy Presence of coronary angioplasty implant and graft (~08/29/12) S/P CABG (coronary artery bypass graft) (~01/02/11) Social History Smoking Status: Former smoker how long ago did patient quit smokin alcohol intake: never substance use type: does not use caffeine: Yes Type: coffee Number of servings: 1 additional social history: DOES NOT USE ASPIRIN DOES US IBUPROFEN Physical Exam Const alert, oriented x3 and no apparent distress General Appearance: cooperative Nutritional Appearance: obese GI GI Narrative: Morbidly obese, large midline laparotomy scar well-healed. Small port site scar to the left of this also well-healed. Soft, nondistended. Patient nontender to palpation x4 quadrants. Lab / Micro Data Result Diagrams: 05/04/21 06:13 05/04/21 06:13 Labs: Laboratory Results - last 24 hr 05/03/21 18:16: WBC 11.1 H, RBC 4.71, Hgb 12.2, Hct 39.3, MCV 83.4, MCH 25.9 L, MCHC 31.0 L, RDW Std Deviation 47.5 H, RDW Coeff of Carissa 15.9 H, Plt Count 311, MPV 9.8, Immature Gran % (Auto) 0.300, Neut % (Auto) 67.4, Lymph % (Auto) 22.7, [place] % (Auto) 7.6, Eos % (Auto) 1.7, Baso % (Auto) 0.3, Absolute Neuts (auto) 7.5, Absolute Lymphs (auto) 2.51, Nucleated RBC % 0 05/03/21 18:16: PT 15.3 H, INR 1.3 05/03/21 18:16: Sodium 140, Potassium 4.8, Chloride 104, Carbon Dioxide 32.0, Anion Gap 4 L, BUN 15, Creatinine 1.00, Estim Creat Clear Calc 33.84, Est GFR (MDRD) Af Amer 69, Est GFR (MDRD) Non-Af 57 L, BUN/Creatinine Ratio 15.0, Glucose 91, Calcium 9.4, Total Bilirubin 0.40, AST 32, ALT 17, Alkaline Phosphatase 135 H, Troponin I High Sens 12, Total Protein 7.0, Albumin 2.7 L, G lobulin 4.3 H, Albumin/Globulin Ratio 0.6 L 05/03/21 19:40: Urine Color Yellow, Urine Clarity Turbid, Urine pH 6.5, Ur Specific [place] 1.015, Urine Protein 100 H, Urine Glucose (UA) Normal, Urine Ketones Negative, Urine Occult Blood 50 H, Urine Nitrite Negative, Urine Bilirubin Negative, Urine Urobilinogen Normal, Ur Leukocyte Esterase 500 H, Urine RBC 0 SEEN, Urine WBC >100 SEEN, Ur Squamous Epith Cells 0 SEEN, Urine Bacteria 0 SEEN, Urine Mucus 0 SEEN 05/04/21 06:13: WBC 7.7, RBC 3.97 L, Hgb 10.2 L, Hct 32.9 L, MCV 82.9, MCH 25.7 L, MCHC 31.0 L, RDW Std Deviation 47.6 H, RDW Coeff of Carissa 15.8 H, Plt Count 297, MPV 9.9, Immature Gran % (Auto) 0.500, Neut % (Auto) 65.5, Lymph % (Auto) 23.2, Casey % (Auto) 7.8, Eos % (Auto) 2.6, Baso % (Auto) 0.4, Absolute Neuts (auto) 5.0, Absolute Lymphs (auto) 1.78, Nucleated RBC % 0 05/04/21 06:13: Sodium 143, Potassium 3.5, Chloride 108 H, Carbon Dioxide 31.0, Anion Gap 4 L, BUN 13, Creatinine 0.91, Estim Creat Clear Calc 37.19, Est GFR (MDRD) Af Amer 77, Est GFR (MDRD) Non-Af 63, BUN/Creatinine Ratio 14.2, Glucose 109 H, Calcium 8.8, Magnesium 2.1 05/04/21 06:13: Hemoglobin A1c 6.4 H Radiology Impression Abdomen/Pelvis CT 05/03/21 17:14 Charges/Coding Visit Charges Inpatient E&M: 90493 Init Hosp L2
--- NOTE | 2021-05-04 09:40 | CASEMGMT ---
JAGDEEP noted patient is from [place]. JAGDEEP faxed updates to [place]. JAGDEEP also left a voice mail for Quiana at [place]. Mariaa Mckinney MSW PRAVIN
--- NOTE | 2021-05-04 11:22 | CASEMGMT ---
SW received a return call from [facility]. 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 She does not need pre-cert prior to returning. SW spoke with patient and she plans on returning to [facility]. Plan: d/c back to [facility] when medically ready. Mariaa COSTELLO
--- NOTE | 2021-05-04 11:41 | CHAPLAIN ---
Type of Pastoral Visit _x__ Initial Visit ___ Follow-up Visit ___ On-call Visit ___ General Patient Visit ___ Spiritual Assessment ___ Family Conference ___ Bereavement ___ Rapid Response ___ Code Blue ___ Other (describe below) Pastoral Care Referral From _x__ Patient ___ Family ___ Nurse ___ Physician ___ Pharmacist Assistant ___ Painter Sign Maintenance ___ Other (describe below) Sacrament/Intervention _x__ Active listening ___ Anointing ___ Presybeterian ___ Bereavement ___ Communion ___ Aminah exploration ___ ___ Life review _x__ Prayer ___ Reconciliation ___ Sacrament of Sick _x__ Supportive presence ___ Wedding ___ Other (describe below) Pastoral Comments patient has been seen in previous admissions; pt welcomes the spiritual care support and explains her current situation and surgery scheduled for tomorrow; pt has expressed disappointment in not being able to eat but what can you do, you have to just go with this; pt speaks of her adjustment to ECF and how she is feeling better about that change in her life; son of pt is in the room giving support as well; pt welcomes a prayer and presence throughout this admission
--- NOTE | 2021-05-04 12:01 | PN.HOSP_ITS ---
Subjective Subjective No current complaints. Objective Data Objective Data Vital Signs: Vital Signs Temp Pulse Resp BP Pulse Ox 36.7 C 61 18 138/71 H 91 05/04/21 08:00 05/04/21 11:00 05/04/21 10:00 05/04/21 10:00 05/04/21 10:00 Oxygen Flow Rate (L/min) 2 Oxygen Delivery Method Nasal Cannula Weight: 88.5 kg Body Mass Index (BMI) 38.0 Intake & Output: Intake and Output for Last 24 Hours 05/02/21 05/03/21 05/04/21 23:59 23:59 23:59 Intake Total 600 / 604.44 1003.89 / 1003.89 Output Total 0 / 0 Balance 600 / 604.44 1003.89 / 1003.89 Lab / Micro Data Result Diagrams: 05/04/21 06:13 05/04/21 06:13 Labs: Laboratory Results - last 24 hr 05/03/21 18:16: WBC 11.1 H, RBC 4.71, Hgb 12.2, Hct 39.3, MCV 83.4, MCH 25.9 L, MCHC 31.0 L, RDW Std Deviation 47.5 H, RDW Coeff of Carissa 15.9 H, Plt Count 311, MPV 9.8, Immature Gran % (Auto) 0.300, Neut % (Auto) 67.4, Lymph % (Auto) 22.7, [place] % (Auto) 7.6, Eos % (Auto) 1.7, Baso % (Auto) 0.3, Absolute Neuts (auto) 7.5, Absolute Lymphs (auto) 2.51, Nucleated RBC % 0 05/03/21 18:16: PT 15.3 H, INR 1.3 05/03/21 18:16: Sodium 140, Potassium 4.8, Chloride 104, Carbon Dioxide 32.0, Anion Gap 4 L, BUN 15, Creatinine 1.00, Estim Creat Clear Calc 33.84, Est GFR (MDRD) Af Amer 69, Est GFR (MDRD) Non-Af 57 L, BUN/Creatinine Ratio 15.0, Glucose 91, Calcium 9.4, Total Bilirubin 0.40, AST 32, ALT 17, Alkaline Phosphatase 135 H, Troponin I High Sens 12, Total Protein 7.0, Albumin 2.7 L, Globulin 4.3 H, Albumin/Globulin Ratio 0.6 L 05/03/21 19:40: Urine Color Yellow, Urine Clarity Turbid, Urine pH 6.5, Ur Specific [place] 1.015, Urine Protein 100 H, Urine Glucose (UA) Normal, Urine Ketones Negative, Urine Occult Blood 50 H, Urine Nitrite Negative, Urine Bilirubin Negative, Urine Urobilinogen Normal, Ur Leukocyte Esterase 500 H, Urine RBC 0 SEEN, Urine WBC >100 SEEN, Ur Squamous Epith Cells 0 SEEN, Urine Bacteria 0 SEEN, Urine Mucus 0 SEEN 05/04/21 06:13: WBC 7.7, RBC 3.97 L, Hgb 10.2 L, Hct 32.9 L, MCV 82.9, MCH 25.7 L, MCHC 31.0 L, RDW Std Deviation 47.6 H, RDW Coeff of Carissa 15.8 H, Plt Count 297, MPV 9.9, Immature Gran % (Auto) 0.500, Neut % (Auto) 65.5, Lymph % (Auto) 23.2, [place] % (Auto) 7.8, Eos % (Auto) 2.6, Baso % (Auto) 0.4, Absolute Neuts (auto) 5.0, Absolute Lymphs (auto) 1.78, Nucleated RBC % 0 05/04/21 06:13: Sodium 143, Potassium 3.5, Chloride 108 H, Carbon Dioxide 31.0, Anion Gap 4 L, BUN 13, Creatinine 0.91, Estim Creat Clear Calc 37.19, Est GFR (MDRD) Af Amer 77, Est GFR (MDRD) Non-Af 63, BUN/Creatinine Ratio 14.2, Glucose 109 H, Calcium 8.8, Magnesium 2.1 05/04/21 06:13: Hemoglobin A1c 6.4 H Micro: Microbiology 05/03/21 19:40 Urine Catheter - Catheter Urine Culture - Preliminary GNR lactose heel nail rasper Radiography Diagnostic Testing: Radiology Impression Abdomen/Pelvis CT 05/03/21 17:14 Physical Exam HEENT head/scalp atraumatic Head and Scalp: normocephalic Neck no lymphadenopathy Resp normal respiratory effort, no retractions and no use of accessory muscles Cardio regular rate, regular rhythm, S1 normal heart sound and S2 normal heart sound GI normal to inspection, nondistended, normoactive bowel sounds, soft to palpation, non-tender and non-distended Extremity normal to inspection Assessment & Plan Assessment/Plan (1) Feeding difficulty in adult: PLAN: 1. Dysphagia * Patient had a modified barium swallow on the same day of presentation. Reportedly patient was on full liquid diet previously and Heimlich maneuver had to be performed on 04/29/2021 due to choking on pur?ed solids. * Per the modified barium swallow patient was diagnosed as having severe oropharyngeal dysphagia * General surgery consult. Per General Surgery recommendation cardiology has been consulted for cardiac clearance. We will keep patient n.p.o. * PT/INR showed a PT of 15.3 and INR of 1.3. Patient was on home Xarelto, held at this time. * Gentle IV hydration while n.p.o. * Plan for PEG 05/05 2. Recurrent UTI * CBC reviewed showed white count of 11.1 * On aztreonam. Follow up cultures 3. left ureteral stone * asymptomatic * follow up with as outpt as previously scheduled 4. History of atrial fibrillation * Patient is currently in sinus rhythm with rates in the 60s. * on IV amiodarone * change to gtube when placed and dc gtt. DVT prophylaxis:SCD Charges/Coding Visit Charges OBSV E&M: 49609 Subsequent observation care L2
[2021-05-04] MEDS: Amiodarone 200 MG Tablet PO (17:55)
[2021-05-04] MEDS: 0.9% Normal Saline 1,000 ML 50 ML IV (17:55)
[2021-05-05] VITALS (29 sets, daily range): BP systolic 132–186; BP diastolic 58–101; PULSE 62–98; RESP 16–22; TEMP 36.5–37.1; O2SAT 90–99; BMI 38.0; BMI 38.2; BMI 38.3
--- NOTE | 2021-05-05 05:55 | EKG12_ITS ---
Test Reason : AM EKG Blood Pressure : / mmHG Vent. Rate : 064 BPM Atrial Rate : 064 BPM P-R Int : 178 ms QRS Dur : 088 ms QT Int : 426 ms P-R-T Axes : 080 016 129 degrees QTc Int : 439 ms Normal sinus rhythm ST & T wave abnormality, consider lateral ischemia Abnormal ECG When compared with ECG of 03-MAY-2021 17:52, QT has shortened Confirmed by TRACEY HATCH, TAYLOR ([id number]), department editor BOBBY VELA ([id number]) on 05/06/2021 2:39:47 PM Referred By: HORTENCIA Confirmed By:DOMI WEBB MD
[2021-05-05 07:13] LABS: Hematocrit 37.1 % (37-47); Hemoglobin 11.1 g/dL (12.0-15.0); Mean Corp Hgb Conc 29.9 g/dL (32-36); Mean Corpuscular Hgb 25.2 pg (27.0-32.0); Mean Corpuscular Volume 84.1 fL (81-99); Mean Platelet Vol. 9.6 fl (6.2-12.0); Platelet Count 319 K/mm3 (150-450); RBC Distribution Width CV 15.7 % (11.6-14.6); RBC Distribution Width SD 48.3 fl (35.1-43.9); Red Blood Count 4.41 M/mm3 (4.2-5.4); White Blood Count 7.7 K/mm3 (4.4-11.0)
[2021-05-05 07:57] LABS: Anion Gap 5 (5-15); BUN 11 mg/dL (7-18); BUN/Creat Ratio 15.7 RATIO (10-20); Calcium,Total 8.7 mg/dL (8.5-10.1); Chloride 110 mmol/L (98-107); EST Glomerular Filtration Rate 86 mL/min (>60); Est Glom Filt Rate - Afr Amer 104 mL/min (>60); Estimated Creatinine Clearance 33.84 ml/min; Glucose 84 mg/dL (74-106); Potassium 3.5 mmol/L (3.5-5.1); Sodium Level 144 mmol/L (136-145)
[2021-05-05] MEDS: hydrALAZINE 20 MG/ML Vial 5 MG IV (11:30)
[2021-05-05] MEDS: 0.9% Saline Lock 10 ML Syringe IV (11:32)
--- NOTE | 2021-05-05 13:15 | NURSING ---
to or per bed ,son & daughter present
--- NOTE | 2021-05-05 13:19 | PN.HOSP_ITS ---
Subjective Subjective Feels well. Objective Data Objective Data Vital Signs: Vital Signs Temp Pulse Resp BP Pulse Ox 36.6 C 68 16 157/68 H 97 05/05/21 12:16 05/05/21 12:16 05/05/21 12:16 05/05/21 12:16 05/05/21 12:16 Oxygen Flow Rate (L/min) 2 Oxygen Delivery Method Nasal Cannula Weight: 88.5 kg Body Mass Index (BMI) 38.2 Intake & Output: Intake and Output for Last 24 Hours 05/03/21 05/04/21 05/05/21 23:59 23:59 23:59 Intake Total 600 / 604.44 503.33 / 503.33 Output Total 0 / 0 150 / 150 Balance 600 / 604.44 353.33 / 353.33 Medical Nutrition Assessment Dietitian: Malnutrition Criteria Met Start: 05/04/21 15:26 Freq: Status: Active Protocol: Document 05/04/21 15:26 AG (Rec: 05/04/21 15:26 [id number]) Nutrition Malnutrition Evidence of Malnutrition Exists Yes Malnutrition (severe): Chronic Evidenced By Suboptimal Energy Intake ( Severe),Weight Loss (Severe) Clinical Problem Chronic Disease or Condition Related Malnutrition Etiology severe, chronic malnutrition r /t dysphagia Signs/Symptoms as evidenced by unintentional wt loss of 14.8kg/14.3% x 6 months, estimated PO intake meeting <75% of estimated energy needs >3 months Status Active Problem Recommendation Dietitian Recommendations/Changes When PEG placed, recommend Jevity 1.5 at 45mL/hour w/ 125mL H2O flush every 4 hours to provide 1620 calories, 69 g protein, and 1571mL fluid/day . Would start at 25mL/hour and increase by 10mL every 8 hours as tolerate until goal rate is achieved. Recommend transition to bolus feeds as tolerated. Lab / Micro Data Result Diagrams: 05/05/21 06:40 05/05/21 06:40 Labs: Laboratory Results - last 24 hr 05/05/21 06:40: WBC 7.7, RBC 4.41, Hgb 11.1 L, Hct 37.1, MCV 84.1, MCH 25.2 L, MCHC 29.9 L, RDW Std Deviation 48.3 H, RDW Coeff of Carissa 15.7 H, Plt Count 319, MPV 9.6 05/05/21 06:40: Sodium 144, Potassium 3.5, Chloride 110 H, Carbon Dioxide 29.0, Anion Gap 5, BUN 11, Creatinine 0.70, Estim Creat Clear Calc 33.84, Est GFR (MDRD) Af Amer 104, Est GFR (MDRD) Non-Af 86, BUN/Creatinine Ratio 15.7, Glucose 84, Calcium 8.7 Micro: Microbiology 05/05/21 07:30 Nasal Secretion SARS-CoV-2 Antigen (Rapid) - Final 05/03/21 19:40 Urine Catheter - Catheter Urine Culture - Final Klebsiella pneumoniae sp pneum Physical Exam Const Constitutional Narrative: Tells me where she is from ([place]). Pleasant. Resp normal respiratory effort, no retractions, no use of accessory muscles and clear to auscultation bilaterally Cardio regular rate, regular rhythm, S1 normal heart sound and S2 normal heart sound GI normal to inspection, nondistended, normoactive bowel sounds, soft to palpation, non-tender and non-distended Psych affect normal Assessment & Plan Assessment/Plan (1) Feeding difficulty in adult: PLAN: 1. Dysphagia * Patient had a modified barium swallow on the same day of presentation. Reportedly patient was on full liquid diet previously and Heimlich maneuver had to be performed on 04/29/2021 due to choking on pur?ed solids. * Per the modified barium swallow patient was diagnosed as having severe oropharyngeal dysphagia * General surgery consult. Per General Surgery recommendation cardiology has been consulted for cardiac clearance. We will keep patient n.p.o. * PT/INR showed a PT of 15.3 and INR of 1.3. Patient was on home Xarelto, held at this time. * Gentle IV hydration while n.p.o. * Plan for PEG 05/05 2. Recurrent UTI * Klebsiella, resistant to ampicillin and nitrofurantoin. * allergy to cefazolin, FQN, PCN, Vancomycin * On aztreonam. Once able to use PEG, start Bactrim DS and treat through the . 3. left ureteral stone * asymptomatic * follow up with as outpt as previously scheduled 4. History of atrial fibrillation * Patient is currently in sinus rhythm with rates in the 60s. * on PO amiodarone DVT prophylaxis:SCD Disposition: back to [facility] when able to tolerate tube feeds. Charges/Coding Visit Charges OBSV E&M: 07430 Subsequent observation care L2
--- NOTE | 2021-05-05 13:30 | CHAPLAIN ---
Type of Pastoral Visit ___ Initial Visit _x__ Follow-up Visit ___ On-call Visit ___ General Patient Visit ___ Spiritual Assessment ___ Family Conference ___ Bereavement ___ Rapid Response ___ Code Blue ___ Other (describe below) Pastoral Care Referral From _x__ Patient ___ Family ___ Nurse ___ Physician ___ Rn Recovery ___ Tie Maker ___ Other (describe below) Sacrament/Intervention _x__ Active listening ___ Anointing ___ Cheondoism ___ Bereavement ___ Communion ___ Aminah exploration ___ ___ Life review ___ Prayer ___ Reconciliation ___ Sacrament of Sick ___ Supportive presence ___ Wedding ___ Other (describe below) Pastoral Comments follow up visit to patient before her surgery as assess needs at this time;
--- NOTE | 2021-05-05 14:00 | EGD_PTH ---
PATIENT: SINA VIZCARRA LOC: [facility] U#:[id number] AGE/SX: 76/F ROOM: [facility] RE05/03/[address]: Dr. Douglas Bowman DO : 1945 BED: 1 DIS: 05/07/2021 SPEC #: [id number] RECD: 05/05/21 16:14 STATUS: RENARD FORDE #: [id number] GERALDO: 05/05/21 14:[address]: Bayron Rivera DEPT: SURGICAL PATHOLOGY RECD BY: Felix Lemon ENTERED: 05/06/21 09:06 SP TYPE: EGD BIOPSY OTHR DR: MD Dr. Douglas Marina DO Dr. Joseph Agyepong, MD Dr. Michael Bortz, MD Dr. Paul Nielsen, MD Tissues: A - Duodenum, NOS B - Duodenum, NOS C - Gastric mucous membrane D - Gastric mucous membrane E - Gastric mucous membrane F - Gastric mucous membrane Procedures: Surgery Specimen Level IV Comments: @ Ordering doctor for SUIV edited from to @ by JAZMÍNOD at 05/06/21 1454 @ Submitting doctor edited from to @ by JAZMÍNOD at 05/06/21 1454 HEADER OPERATION: EGD, biopsies (MAC), PEG tube placement PRE-OP DIAGNOSIS: Feeding difficulty TISSUE SUBMITTED: A ? First portion of duodenum lesion, B ? Duodenal bulb, C ? Antrum biopsy for H. pylori and path, D ? Lesser curve body biopsy, E ? Gastric body polyp biopsy, F ? Pylorus biopsy MICROSCOPIC DIAGNOSIS A. First portion of duodenum lesion, biopsy: A fragment of duodenal mucosa with focal gastric metaplasia. B. Duodenal bulb, biopsy: A fragment of duodenal mucosa with mild Tiffanie gland hyperplasia. C. Antrum biopsy: Mild gastritis. See microscopic description and comment. D. Lesser curvature body, biopsy: Mild gastritis. See microscopic description. E. Gastric body polyp, biopsy: Consistent with fundic gland polyp. F. Pylorus, biopsy: Fragments of tubular adenoma. SJ:vania 05/09/2021 COMMENT C. The results of immunohistochemistry for Helicobacter pylori will be reported separately ([id number]). Case has been reviewed in consultation with Dr. Ray who concurs with the above diagnosis. IDC:AM MICROSCOPIC DESCRIPTION Slides are reviewed. C & D. The specimen shows fragments of gastric mucosa with chronic inflammatory cell infiltrates in the lamina propria consisting of lymphocytes and plasma cells, consistent with mild chronic gastritis. GROSS DESCRIPTION A - Received in fixative is one container labeled with the patient's name and designated first portion of duodenum lesion. The specimen consists of one irregular fragment of light tavarez soft tissue that measures 0.3 x 0.3 x 0.1 cm. The specimen is totally submitted in one cassette. B - Received in fixative is one container labeled with the patient's name and designated duodenal bulb. The specimen consists of one irregular fragment of light tavarez soft tissue that measures 0.3 x 0.3 x 0.1 cm. The specimen is totally submitted in one cassette. C - Received in fixative is one container labeled with the patient's name and designated antrum biopsy. The specimen consists of two irregular fragments of light tavarez soft tissue that in aggregate measure 0.4 x 0.4 x 0.1 cm. The specimen is totally submitted in one cassette. D - Received in fixative is one container labeled with the patient's name and designated lesser curvature body biopsy. The specimen consists of one irregular fragment of light tavarez soft tissue that measures 0.3 x 0.3 x 0.1 cm. The specimen is totally submitted in one cassette. E - Received in fixative is one container labeled with the patient's name and designated gastric body polyp biopsy. The specimen consists of one irregular fragment of light tavarez soft tissue that measures 0.3 x 0.3 x 0.1 cm. The specimen is totally submitted in one cassette. F - Received in fixative is one container labeled with the patient's name and designated pylorus biopsy. The specimen consists of two irregular fragments of light tavarez soft tissue that in aggregate measure 0.7 x 0.2 x 0.1 cm. The specimen is totally submitted in one cassette. / SJ:rg 05/06/2021 TC:1 CPT: 58681 x6
--- NOTE | 2021-05-05 14:00 | IMM_PTH ---
PATIENT: SINA VIZCARRA LOC: [facility] U#:[id number] AGE/SX: 76/F ROOM: [facility] RE05/03/[address]: Dr. Douglas Bowman DO : 1945 BED: 1 DIS: 05/07/2021 SPEC #: [id number] RECD: 05/06/21 13:22 STATUS: RENARD RERickey #: [id number] GERALDO: 05/05/21 14:[address]: Bayron Rivera DEPT: IMMUNOHISTOCHEMISTRY RECD BY: Caryl Chatman ENTERED: 05/06/21 13:23 SP TYPE: IMMUNO OTHR DR: MD Dr. Douglas Marina DO Dr. Joseph Agyepong, MD Dr. Paul Nielsen, MD Tissues: C - Stomach, NOS Procedures: H Pylori (initial) PHYSICIAN & INSTITUTION [place] [id number] SPECIMEN INFORMATION: Tissue Source: C ? Antrum biopsy Clinical Info: Feeding difficulty Specimen Number: [id number] CPT code: 36028 METHODOLOGY: Deparaffinized sections of prefer/formalin-fixed tissue or PAP/DQ stained slides are incubated with monoclonal/polyclonal antibodies/oligonucleotide probes. Localization is made via biotin free immunoperoxidase method. Appropriate controls are performed and reacted as expected. Results on target cell population are indicated in the following table: RESULTS: ANTIBODY / CLONE RESULT Block C H Pylori (polyclonal) negative These tests were developed and their performance characteristics determined by [facility]. They may not have been cleared or approved by the U.S. Food and Drug Administration. The FDA has determined that such clearance or approval is not necessary. The above immunohistochemical/dualISH markers are ordered and reviewed by the Pathologist. INTERPRETATION: C. Antrum, biopsy: Negative for Helicobacter pylori organisms. SJ:vania 05/09/2021
--- NOTE | 2021-05-05 14:08 | PN_ITS ---
Progress Note Patient seen and examined in preop. She is accompanied by her son and [id number]. We reviewed expectations for the procedure as well as post p rocedure plans for tube feeds (to begin 24 hours after tube placement). Physical Exam Const alert, oriented x3 and no apparent distress GI GI Narrative: Obese, nondistended, soft, nontender to palpation Assessment & Plan Assessment/Plan (1) Swallowing dysfunction: PLAN: This is a 76-year-old female with a complex past medical history?most notably for multiple sclerosis, DVTs, and paroxysmal atrial fibrillation on Eliquis therapy who presents with difficulty swallowing and recent choking episode requiring Heimlich maneuver at her nursing facility. On 05/03/2021 patient failed a modified barium swallow study with aspiration of both thin and nectar thick liquids. Plan is to proceed with placement of a percutaneous endoscopic gastrostomy tube today. We have waited 48 hours since her last dose of Eliquis to try to minimize periprocedural bleeding risk. I discussed the procedure with the family as they were not present yesterday. I also advised them on need to present for emergent evaluation if the tube is displaced in the first 4 to 6 weeks post placement. All questions were answered besides, consents were confirmed, and we will now plan to proceed to the [facility] for tube placement.
--- NOTE | 2021-05-05 16:07 | OP.EGD_ITS ---
Patient Name: Nikki Ya Procedure Date: 05/05/2021 1:58 PM Date of : 1945 Age: 76 Procedure: Upper GI endoscopy Indications: Place PEG due to aspiration risk, Dysphagia Providers: Bayron Rivera MD Medicines: See the Anesthesia note for documentation of the administered medications Patient Profile: Refer to note in patient chart for documentation of history and physical. Patient has symptoms of dysphagia with both liquids and solids. Complications: No immediate complications. Estimated blood loss: Minimal. Procedure: Pre-Anesthesia Assessment: - The heart rate, respiratory rate, oxygen saturations, blood pressure, adequacy of pulmonary ventilation, and response to care were monitored throughout the procedure. After obtaining informed consent, the endoscope was passed under direct vision. Throughout the procedure, the patient's blood pressure, pulse, and oxygen saturations were monitored continuously. The Endoscope was introduced through the mouth, and advanced to the second part of duodenum. The upper GI endoscopy was somewhat difficult due to Multiple lesions and patient desaturation/poor respiratory reserve}. [Solution]. Findings: One 3 mm pedunculated and sessile polyp with no bleeding was found in the first portion of the duodenum. Biopsies were taken with a cold forceps for histology. Estimated blood loss was minimal. A few 5 mm mucosal nodules with a localized distribution were found in the duodenal bulb. Biopsies were taken with a cold forceps for histology. Estimated blood loss was minimal. Localized mild inflammation characterized by erythema was found in the gastric antrum. Biopsies were taken with a cold forceps for histology. Estimated blood loss was minimal. One 7 mm papule (nodule) with no bleeding and no stigmata of recent bleeding was found at the pylorus. Biopsies were taken with a cold forceps for histology. Estimated blood loss was minimal. Multiple 3 mm pedunculated and sessile polyps with no bleeding and no stigmata of recent bleeding were found in the gastric body. Biopsies were taken with a cold forceps for histology. Estimated blood loss was minimal. The Z-line was regular and was found 40 cm from the incisors. Impression: - One duodenal polyp. Biopsied. - Mucosal nodule found in the duodenum. Biopsied. - Gastritis. Biopsied. - One papule (nodule) found in the stomach. Biopsied. - Multiple gastric polyps. Biopsied. - Z-line regular, 40 cm from the incisors. Recommendation: - Please follow the post-PEG recommendations including: may use PEG tomorrow for feedings. - NPO today. - Await pathology results. - Telephone my office for pathology results in 1 week. - Resume Eliquis (apixaban) at prior dose in 2 days. Procedure Code(s): --- Professional --- 46342, Esophagogastroduodenoscopy, flexible, transoral; with biopsy, single or multiple Diagnosis Code(s): --- Professional --- K31.7, Polyp of stomach and duodenum K31.89, Other diseases of stomach and duodenum K29.70, Gastritis, unspecified, without bleeding R63.3, Feeding difficulties Z43.1, Encounter for attention to gastrostomy R13.10, Dysphagia, unspecified CPT copyright 2017 [employer]. All rights reserved. The codes documented in this report are preliminary and upon technical programs manager review may be revised to meet current compliance requirements. Bayron Rivera MD 05/05/2021 4:07:03 PM This report has been signed electronically. Number of Addenda: 1 Note Initiated On: 05/05/2021 1:58 PM Addendum Number: 1 Addendum Date: 05/16/2021 10:58:39 AM Clarification: Patient did undergo placement of a 20 Ethiopian PEG tube along the greater curvature in the body of the stomach. This was done with a transillumination and one-to-one palpation technique such that under endoscopic visualization, we visualized a needle coming in to the stomach percutaneously. After placing a wire through the cannula, the tube was connected at the mouth and pulled through the stomach in the usual pull technique. The bumper was positioned against the mucosa so that it was snug but could rotate freely. At the skin surface the flange met the tube at 3 cm from the skin. This flange was secured to the tube via a 0 Prolene suture. Procedure was tolerated well with minimal blood loss. Tube was connected to a syringe and left to gravity for overnight draining. Bayron Rivera MD 05/16/2021 11:03:22 AM This report has been signed electronically.
--- NOTE | 2021-05-05 16:08 | OP.CCLET_ITS ---
05/16/2021 Uriel Mac MD [address] [id number] Re : Upper GI endoscopy procedure for Nikki Ya Dear Dr. Mac This procedure was performed on April. My impressions and recommendations are as follows: Impressions : - One duodenal polyp. Biopsied. - Mucosal nodule found in the duodenum. Biopsied. - Gastritis. Biopsied. - One papule (nodule) found in the stomach. Biopsied. - Multiple gastric polyps. Biopsied. - Z-line regular, 40 cm from the incisors. Recommendations : - Please follow the post-PEG recommendations including: may use PEG tomorrow for feedings. - NPO today. - Await pathology results. - Telephone my office for pathology results in 1 week. - Resume Eliquis (apixaban) at prior dose in 2 days. My findings are described in the full procedure note, which is enclosed. If I can be of further assistance, please feel free to contact me at Doctor phone number(s): , Work: . Sincerely, Bayron Rivera MD 05/05/2021 4:07:03 PM This report has been signed electronically.
[2021-05-05] MEDS: Ipratropium/Albuterol Sulfate 3 ML AMPUL.NEB INHALATION (16:22)
--- NOTE | 2021-05-05 16:46 | RAD_ITS ---
STUDY: X-RAY CHEST REASON FOR EXAM: Female, 76 years old. increased work of breath post anesthesia TECHNIQUE: Single AP portable view of the chest. COMPARISON: 04/24/2021 FINDINGS: Status post median sternotomy. Poor inspiration with some bibasilar atelectasis. There is no demonstrated pleural abnormality. There is moderate cardiac enlargement. Normal mediastinum and alee. Normal visualized pulmonary arteries. There is atherosclerotic tortuosity of the aortic arch and descending thoracic aorta. Normal visualized thoracic spine. Normal visualized ribs, clavicles, and shoulders. There is no demonstrated abnormality of the visualized soft tissue structures of the upper abdomen. RAD/Chest 1 View (Portable) IMPRESSION: Poor inspiration with some bibasilar atelectasis. Electronically Signed: Krunal Payne MD at 17:07 EDT ,
--- NOTE | 2021-05-05 17:38 | NURSING ---
returned from or alert & oriented x3, peg tube to gravity,family @ bedside, no co pain voiced @ this time, renee applied, bp 132/65hr 70sr on monitor
[2021-05-05] MEDS: 0.9% Normal Saline 1,000 ML 50 ML IV (21:37)
[2021-05-06] VITALS (12 sets, daily range): BP systolic 144–173; BP diastolic 55–73; PULSE 64–76; RESP 15–18; TEMP 36.6–37; O2SAT 94–98; BMI 38.3
[2021-05-06] MEDS: Amiodarone 200 MG Tablet PO (09:29)
--- NOTE | 2021-05-06 10:44 | PCM.PN.SRG ---
Subjective Subjective Patient seen and examined during AM rounds. She is initially resting on my arrival to the room. She denies any significant abdominal pain. She expresses extreme thirst. Objective Data Objective Data Vital Signs: Vital Signs Temp Pulse Resp BP Pulse Ox 97.8 F 68 15 151/68 H 94 05/06/21 08:44 05/06/21 08:44 05/06/21 08:44 05/06/21 08:44 05/06/21 08:44 Oxygen Flow Rate (L/min) 2 Oxygen Delivery Method Nasal Cannula Weight: 195 lb 1.745 oz Body Mass Index (BMI) 38.2 Intake & Output: Intake and Output for Last 24 Hours 05/04/21 05/05/21 05/06/21 23:59 23:59 23:59 Intake Total / 1229.33 / 1329.33 689.17 / 689.17 Output Total 0 / 0 300 / 500 300 / 300 Balance 929.33 / 829.33 389.17 / 389.17 Medical Nutrition Assessment Dietitian: Malnutrition Criteria Met Start: 05/04/21 15:26 Freq: Status: Active Protocol: Document 05/04/21 15:26 AG (Rec: 05/04/21 15:26 AG [id number]) Nutrition Malnutrition Evidence of Malnutrition Exists Yes Malnutrition (severe): Chronic Evidenced By Suboptimal Energy Intake ( Severe),Weight Loss (Severe) Clinical Problem Chronic Disease or Condition Related Malnutrition Etiology severe, chronic malnutrition r /t dysphagia Signs/Symptoms as evidenced by unintentional wt loss of 14.8kg/14.3% x 6 months, estimated PO intake meeting <75% of estimated energy needs >3 months Status Active Problem Recommendation Dietitian Recommendations/Changes When PEG placed, recommend Jevity 1.5 at 45mL/hour w/ 125mL H2O flush every 4 hours to provide 1620 calories, 69 g protein, and 1571mL fluid/day . Would start at 25mL/hour and increase by 10mL every 8 hours as tolerate until goal rate is achieved. Recommend transition to bolus feeds as tolerated. Lab / Micro Data Result Diagrams: 05/05/21 06:40 05/05/21 06:40 Micro: Microbiology 05/05/21 07:30 Nasal Secretion SARS-CoV-2 Antigen (Rapid) - Final 05/03/21 19:40 Urine Catheter - Catheter Urine Culture - Final Klebsiella pneumoniae sp pneum Radiography Diagnostic Testing: Radiology Impression Chest X-Ray 05/05/21 16:46 IMPRESSION: Poor inspiration with some bibasilar atelectasis. Electronically Signed: Krunal Payne MD at 17:07 EDT , Physical Exam Const oriented x3 and no apparent distress GI GI Narrative: Nondistended, soft, minimally tender about PEG tube site. Here the PEG tube remains at 3 cm from the skin on the bumper to the tube. The tube remains to gravity with thin bilious drainage. The abdomen is otherwise nontender to palpation Assessment & Plan Assessment/Plan (1) S/P percutaneous endoscopic gastrostomy (PEG) tube placement: PLAN: Patient is post procedure day 1 from EGD with PEG tube placement. She is doing quite well from a pain standpoint and her tube remains in appropriate position. Tube has been cleared to begin use for enteral feeding today. We will see how she tolerates this and then she would be eligible for discharge to her nursing facility. There are multiple biopsies currently pending from the patient's EGD yesterday. In conversations with family, they have requested that I notify the son once these results are known and he will communicate them to his mother. Charges/Coding Visit Charges Inpatient E&M: 49967 Subs Hosp L2
[2021-05-06] MEDS: Jevity 1.5 1,000 ML 25 ML GT (11:51)
--- NOTE | 2021-05-06 12:51 | PN.HOSP_ITS ---
Subjective Subjective Breathing better from yesterday when she was last evaluated by myself. Objective Data Objective Data Vital Signs: Vital Signs Temp Pulse Resp BP Pulse Ox 36.6 C 64 15 151/68 H 94 05/06/21 08:44 05/06/21 12:04 05/06/21 08:44 05/06/21 08:44 05/06/21 08:44 Oxygen Flow Rate (L/min) 2 Oxygen Delivery Method Nasal Cannula Weight: 88.5 kg Body Mass Index (BMI) 38.2 Intake & Output: Intake and Output for Last 24 Hours 05/04/21 05/05/21 05/06/21 23:59 23:59 23:59 Intake Total 1229.33 / 1329.33 689.17 / 689.17 Output Total 0 / 0 300 / 500 700 / 700 Balance 929.33 / 829.33 -10.83 / -10.83 Medical Nutrition Assessment Dietitian: Malnutrition Criteria Met Start: 05/04/21 15:26 Freq: Status: Active Protocol: Document 05/04/21 15:26 AG (Rec: 05/04/21 15:26 [id number]) Nutrition Malnutrition Evidence of Malnutrition Exists Yes Malnutrition (severe): Chronic Evidenced By Suboptimal Energy Intake ( Severe),Weight Loss (Severe) Clinical Problem Chronic Disease or Condition Related Malnutrition Etiology severe, chronic malnutrition r /t dysphagia Signs/Symptoms as evidenced by unintentional wt loss of 14.8kg/14.3% x 6 months, estimated PO intake meeting <75% of estimated energy needs >3 months Status Active Problem Recommendation Dietitian Recommendations/Changes When PEG placed, recommend Jevity 1.5 at 45mL/hour w/ 125mL H2O flush every 4 hours to provide 1620 calories, 69 g protein, and 1571mL fluid/day . Would start at 25mL/hour and increase by 10mL every 8 hours as tolerate until goal rate is achieved. Recommend transition to bolus feeds as tolerated. Lab / Micro Data Result Diagrams: 05/05/21 06:40 05/05/21 06:40 Micro: Microbiology 05/05/21 07:30 Nasal Secretion SARS-CoV-2 Antigen (Rapid) - Final 05/03/21 19:40 Urine Catheter - Catheter Urine Culture - Final Klebsiella pneumoniae sp pneum Radiography Diagnostic Testing: Radiology Impression Chest X-Ray 05/05/21 16:46 IMPRESSION: Poor inspiration with some bibasilar atelectasis. Electronically Signed: Krunal Payne MD at 17:07 EDT , Physical Exam Const no apparent distress Resp normal respiratory effort, no retractions, no use of accessory muscles and clear to auscultation bilaterally Cardio regular rate, regular rhythm, S1 normal heart sound and S2 normal heart sound GI normal to inspection, nondistended, normoactive bowel sounds, soft to palpation, non-tender and non-distended GI Narrative: PEG tube in place. Assessment & Plan Assessment/Plan (1) Feeding difficulty in adult: PLAN: 1. Dysphagia * Patient had a modified barium swallow on the same day of presentation. Reportedly patient was on full liquid diet previously and Heimlich maneuver had to be performed on 04/29/2021 due to choking on pur?ed solids. * Per the modified barium swallow patient was diagnosed as having severe oropharyngeal dysphagia * General surgery consult. Per General Surgery recommendation cardiology has been consulted for cardiac clearance. We will keep patient n.p.o. * PT/INR showed a PT of 15.3 and INR of 1.3. Patient was on home Xarelto, held at this time. * Gentle IV hydration while n.p.o. * PEG 05/05 * Tube feeds started. Monitor to see how patient tolerates. If patient tolerates and likely can be discharged back to the [facility] on the second. 2. Recurrent UTI * Klebsiella, resistant to ampicillin and nitrofurantoin. * allergy to cefazolin, FQN, PCN, Vancomycin * On aztreonam. Once able to use PEG, start Bactrim DS and treat through the 4th. 3. left ureteral stone * asymptomatic * follow up with as outpt as previously scheduled 4. History of atrial fibrillation * Patient is currently in sinus rhythm with rates in the 60s. * on PO amiodarone DVT prophylaxis:SCD Disposition: back to [facility] when able to tolerate tube feeds. Charges/Coding Visit Charges OBSV E&M: 16945 Subsequent observation care L2
--- NOTE | 2021-05-06 14:45 | CASEMGMT ---
Social Work Per Dr. Bowman patient could be medically cleared this weekend. Patient to return to [facility]. Green Sheet placed on chart. PLAN: [facility], intermediate level of care. Travis NGUYEN, PERCY
[2021-05-06] MEDS: Smz/Tmp Ds Tablet 1 TABLET GT ×2 (14:49→21:04)
[2021-05-06] MEDS: hydrALAZINE 20 MG/ML Vial 5 MG IV (15:07)
[2021-05-06] MEDS: Gabapentin 300 MG Capsule GT ×2 (15:16→21:04)
[2021-05-06] MEDS: carBAMazepine 200 MG/10 ML UDC GT (21:05)
[2021-05-06] MEDS: 0.9% Normal Saline 1,000 ML 50 ML IV (21:13)
[2021-05-07] VITALS (7 sets, daily range): BP systolic 147–184; BP diastolic 58–66; PULSE 62–77; RESP 16–18; TEMP 36.9–37.2; O2SAT 95–100
[2021-05-07] MEDS: hydrALAZINE 20 MG/ML Vial 5 MG IV (03:15)
--- NOTE | 2021-05-07 07:39 | NURSING ---
PEG tube feed rate changed to 35 at 1999. PEG tube feed rate changed to 45 at 0400.
[2021-05-07] MEDS: Gabapentin 300 MG Capsule GT (09:36)
[2021-05-07] MEDS: Smz/Tmp Ds Tablet 1 TABLET GT (09:36)
[2021-05-07] MEDS: Amiodarone 200 MG Tablet GT (09:36)
[2021-05-07] MEDS: carBAMazepine 200 MG/10 ML UDC GT (09:40)
[2021-05-07] MEDS: 0.9% Normal Saline 1,000 ML 50 ML IV (10:01)
[2021-05-07] MEDS: Jevity 1.5 1,000 ML 45 ML GT (10:20)
--- NOTE | 2021-05-07 10:41 | TREXTCAR_ITS ---
Diet 05/03/21 22:57 Diet: Nothing Per Oral Wound(s) abdomen: Wound Type: Surgical Incision Therapies Weight Bearing: Full weight bearing Physical Therapy: Eval and Treat Occupational Therapy: Eval and Treat Speech Therapy: Eval and Treat Problem/Diagnosis (1) S/P percutaneous endoscopic gastrostomy (PEG) tube placement: Status: Acute Allergies/Procedures Done in Hospital Allergies codeine Allergy (Unknown, Verified 05/03/21 16:48) Hives cefazolin Allergy (Verified 05/03/21 16:48) Rash ciprofloxacin [From Cipro] Allergy (Verified 05/03/21 16:48) Hives ciprofloxacin HCl [From Cipro] Allergy (Verified 05/03/21 16:48) Hives Tolerated Levaquin therapy despite allergy Latex, Natural Rubber Allergy (Verified 05/03/21 16:48) Rash Penicillins [PCN] Allergy (Verified 05/03/21 16:48) Hives vancomycin Allergy (Verified 05/03/21 16:48) Angioedema adhesive tape Adverse Reaction (Verified 05/03/21 16:48) Rash Type of Care/Length of Stay Estimated LOS: More Than 30 Days Type of Care Needed: Senior Living/Assisted Living Rehab Potential: Fair Prognosis: Fair Additional Orders/Day of Discharge Day of Discharge: 05/07/21 Dietary and Speech Recommendations Dietitian Recommendations/Changes: Will order Jevity 1.5 via PEG at 300mL 5 times daily w/125mL H2O flush Discharge Plan Admission Admit Date/Time: 05/03/21 21:30 Primary Reason for Your Visit: PEG tube placement Attending Provider: Douglas Bowman Primary Care Provider: Uriel Mac Consulting Providers: Kurtis Barajas ; Bayron Rivera Discharge Orders/Prescriptions Prescriptions: New amiodarone 200 mg Tablet 200 mg G-tube DAILY Qty: 0 RF: 0 sulfamethoxazole-trimethoprim 800-160 mg Tablet 1 tab G-tube BID Qty: 0 RF: 0 gabapentin 300 mg Capsule 300 mg G-tube BID Qty: 0 RF: 0 carbamazepine 200 mg/10 mL Suspension 200 mg G-tube BID Qty: 0 RF: 0 Continued albuterol sulfate 2.5 MG/3 ML solution for nebulization 2.5 mg inhalation Q2H PRN PRN (Reason: SOB/Wheezing) RF: 0 Changed acetaminophen 325 mg tablet 650 mg feeding tube Q6H PRN (Reason: PAIN AND FEVER) Qty: 0 RF: 0 atorvastatin 20 MG tablet 20 mg feeding tube QHS Qty: 0 RF: 0 amlodipine 2.5 mg tablet 2.5 mg feeding tube DAILY Qty: 0 RF: 0 hydralazine 50 MG tablet 50 mg feeding tube TID Qty: 0 RF: 0 polyethylene glycol 3350 17 gram/dose powder 17 g feeding tube DAILY Qty: 0 RF: 0 apixaban 2.5 MG tablet 5 mg feeding tube BID Qty: 0 RF: 0 Discontinued carbamazepine 400 mg tablet extended release 12 hr 400 mg PO QHS RF: 0 gabapentin 300 mg capsule 300 mg PO BID RF: 0 tramadol 50 mg tablet 50 mg PO Q8H PRN (Reason: Pain) RF: 0 bisacodyl 5 mg tablet,delayed release (DR/EC) 5 mg PO DAILY PRN (Reason: Constipation) RF: 0 amiodarone 200 MG tablet 200 mg PO DAILY RF: 0 magnesium oxide 400 MG tablet 400 mg PO BID RF: 0 duloxetine 60 MG capsule,delayed release(DR/EC) 60 mg PO DAILY RF: 0 omeprazole 20 MG capsule 20 mg PO DAILY RF: 0 psyllium Packet 1 packet PO DAILY RF: 0 Lactobacillus rhamnosus GG 10 billion cell Capsule 1 cap PO DAILY RF: 0 nitrofurantoin monohyd/m-cryst [nitrofurantoin monohyd/m-cryst] 100 MG capsule 100 mg PO Q12 Qty: 20 RF: 0 D5 %-0.45 % sodium chloride Parenteral Solution DAILY RF: 0 Referrals / Follow Up: Charlie Montesinos MD [STAFF PHYSICIAN] - Within 2 Weeks Bayron Rivera MD [STAFF PHYSICIAN] - Within 2 Weeks Uriel Mac MD [Primary Care Provider] - Within 2 Weeks Disposition Disposition (needs filled in before D/C Order can be placed): NonSkilled NH/Intermed Care
--- NOTE | 2021-05-07 11:13 | PCM.DC.SUM ---
Providers Date of Admission: 05/03/21 Primary Care Physician: Dr. Uriel Mac MD Consultations 05/03/21 22:57 Consult: Cardiology Routine Consulting Provider: Kurtis Barajas Reason for Consult: Cardiology consult per general surgery recommendation EMERGENT Consult: No Notified: Yes Date Notified: 05/04/21 Time Notified: 07:56 Method of Notification: Text Consult: General Surgery Routine Consulting Provider: Bayron Rivera Reason for Consult: Peg Tube Placement EMERGENT Consult: No Notified: Yes Date Notified: 05/04/21 Time Notified: 07:51 Method of Notification: Text Reason For Visit: PEG TUBE PLACEMENT Diagnosis Discharge Diagnosis (1) S/P percutaneous endoscopic gastrostomy (PEG) tube placement: Status: Acute Code(s): Z93.1 - Gastrostomy status Medications at Discharge Home Medications albuterol sulfate 2.5 mg INHALATION Q2H PRN PRN vial.neb. 08/12/19 acetaminophen 650 mg FEEDING TUBE Q6H PRN #0 tab 05/07/21 amiodarone 200 mg G-TUBE DAILY #0 tab 05/07/21 amlodipine 2.5 mg FEEDING TUBE DAILY #0 tab 05/07/21 apixaban 5 mg FEEDING TUBE BID #0 tab 05/07/21 atorvastatin 20 mg FEEDING TUBE QHS #0 tab 05/07/21 carbamazepine 200 mg G-TUBE BID #0 ml 05/07/21 gabapentin 300 mg G-TUBE BID #0 cap 05/07/21 hydralazine 50 mg FEEDING TUBE TID #0 tab 05/07/21 polyethylene glycol 3350 17 g FEEDING TUBE DAILY #0 g 05/07/21 sulfamethoxazole-trimethoprim 1 tab G-TUBE BID #0 tab 05/07/21 Hospital Course Operations None Procedures Peg tube placement Summary of Care Provided Minutes Spent on Discharge: 45 Hospital Course: 1. Dysphagia Patient had a modified barium swallow on the same day of presentation. Reportedly patient was on full liquid diet previously and Heimlich maneuver had to be performed on 04/29/2021 due to choking on pur?ed solids. Per the modified barium swallow patient was diagnosed as having severe oropharyngeal dysphagia General surgery consult. Per General Surgery recommendation cardiology has been consulted for cardiac clearance. We will keep patient n.p.o. PT/INR showed a PT of 15.3 and INR of 1.3. Patient was on home Xarelto, held at this time. Gentle IV hydration while n.p.o. PEG 05/05 Tube feeds started. So far tolerated. Transition over to bolus feedings. Discussed with nutrition. 2. Recurrent UTI Klebsiella, resistant to ampicillin and nitrofurantoin. allergy to cefazolin, FQN, PCN, Vancomycin On aztreonam. Once able to use PEG, start Bactrim DS and treat through the 4th. 3. left ureteral stone asymptomatic follow up with as outpt as previously scheduled 4. History of atrial fibrillation Patient is currently in sinus rhythm with rates in the 60s. on PO amiodarone Physical Exam Const alert and no apparent distress Cardio regular rate, regular rhythm, S1 normal heart sound and S2 normal heart sound GI normal to inspection, nondistended, normoactive bowel sounds, soft to palpation, non-tender and non-distended Extremity normal to inspection, full ROM and no clubbing, cyanosis or edema Skin no rashes or lesions noted and no wounds Medical Records Data Medical Nutrition Assessment Dietitian: Malnutrition Criteria Met Start: 05/04/21 15:26 Freq: Status: Active Protocol: Document 05/07/21 11:12 AG (Rec: 05/07/21 11:12 [id number]) Nutrition Malnutrition Evidence of Malnutrition Exists Yes Malnutrition (severe): Chronic Evidenced By Suboptimal Energy Intake ( Severe),Weight Loss (Severe) Clinical Problem Chronic Disease or Condition Related Malnutrition Etiology severe, chronic malnutrition r /t dysphagia Signs/Symptoms as evidenced by unintentional wt loss of 14.8kg/14.3% x 6 months, estimated PO intake meeting <75% of estimated energy needs >3 months Status Active Problem Recommendation Dietitian Recommendations/Changes Will transition to bolus feed via PEG- Jevity 1.5 270mL bolus 4x/day w/ 180mL H2O flush w/ each bolus to provide 1620 calories, 69 g protein, and 1541mL fluid/day. Weight / BMI Weight Weight: 88.5 kg Body Mass Index (BMI) 38.2 ABG / Lab / Microbiology Data Result Diagrams: 05/05/21 06:40 05/05/21 06:40 Microbiology: Microbiology 05/05/21 07:30 Nasal Secretion SARS-CoV-2 Antigen (Rapid) - Final 05/03/21 19:40 Urine Catheter - Catheter Urine Culture - Final Klebsiella pneumoniae sp pneum Meaningful Use Info Meaningful Use Diagnoses (Choose all that apply): None applicable Discharge Plan Admission Admit Date/Time: 05/03/21 21:30 Primary Reason for Your Visit: PEG tube placement Attending Provider: Douglas Bowman Primary Care Provider: Uriel Mac Consulting Providers: Kurtis Barajas ; Bayron Rivera Discharge Orders/Prescriptions Prescriptions: New amiodarone 200 mg Tablet 200 mg G-tube DAILY Qty: 0 RF: 0 sulfamethoxazole-trimethoprim 800-160 mg Tablet 1 tab G-tube BID Qty: 0 RF: 0 gabapentin 300 mg Capsule 300 mg G-tube BID Qty: 0 RF: 0 carbamazepine 200 mg/10 mL Suspension 200 mg G-tube BID Qty: 0 RF: 0 Continued albuterol sulfate 2.5 MG/3 ML solution for nebulization 2.5 mg inhalation Q2H PRN PRN (Reason: SOB/Wheezing) RF: 0 Changed acetaminophen 325 mg tablet 650 mg feeding tube Q6H PRN (Reason: PAIN AND FEVER) Qty: 0 RF: 0 atorvastatin 20 MG tablet 20 mg feeding tube QHS Qty: 0 RF: 0 amlodipine 2.5 mg tablet 2.5 mg feeding tube DAILY Qty: 0 RF: 0 hydralazine 50 MG tablet 50 mg feeding tube TID Qty: 0 RF: 0 polyethylene glycol 3350 17 gram/dose powder 17 g feeding tube DAILY Qty: 0 RF: 0 apixaban 2.5 MG tablet 5 mg feeding tube BID Qty: 0 RF: 0 Discontinued carbamazepine 400 mg tablet extended release 12 hr 400 mg PO QHS RF: 0 gabapentin 300 mg capsule 300 mg PO BID RF: 0 tramadol 50 mg tablet 50 mg PO Q8H PRN (Reason: Pain) RF: 0 bisacodyl 5 mg tablet,delayed release (DR/EC) 5 mg PO DAILY PRN (Reason: Constipation) RF: 0 amiodarone 200 MG tablet 200 mg PO DAILY RF: 0 magnesium oxide 400 MG tablet 400 mg PO BID RF: 0 duloxetine 60 MG capsule,delayed release(DR/EC) 60 mg PO DAILY RF: 0 omeprazole 20 MG capsule 20 mg PO DAILY RF: 0 psyllium Packet 1 packet PO DAILY RF: 0 Lactobacillus rhamnosus GG 10 billion cell Capsule 1 cap PO DAILY RF: 0 nitrofurantoin monohyd/m-cryst [nitrofurantoin monohyd/m-cryst] 100 MG capsule 100 mg PO Q12 Qty: 20 RF: 0 D5 %-0.45 % sodium chloride Parenteral Solution DAILY RF: 0 Referrals / Follow Up: Charlie Montesinos MD [STAFF PHYSICIAN] - Within 2 Weeks Bayron Rivera MD [STAFF PHYSICIAN] - Within 2 Weeks Uriel Mac MD [Primary Care Provider] - Within 2 Weeks Disposition Disposition (needs filled in before D/C Order can be placed): NonSkilled NH/Intermed Care Charges/Coding Visit Charges Inpatient E&M: 39854 Disch Hosp
--- NOTE | 2021-05-07 12:25 | NURSING ---
Report called to Jessy at [facility].
--- NOTE | 2021-05-07 12:44 | CM.ED ---
SW Note SW was advised by Rita, industrial machine system technician in PCU, that patient was returning to [facility]. executive legal secretary Carina said that she had called the [facility] and faxed paperwork, per the green sheet, to the [facility]. No further SW services needed at this time. Plan: Return to [facility] Lesia MORALES
[2021-05-07] MEDS: Jevity 1.5. 1,000 ML Bottle 270 ML GT (13:37)
== END 2021-05-07 11:13 ==
LOC: ED 17:34 → PCU 22:07
PROVIDERS: Anesthesiology; Surgery; Admitting Provider Hospitalist; Emergency Provider Student in an Organized Health Care Education/Training Program; PCP Family Medicine
PROC: 0DJ08ZZ Inspection of Upper Intestinal Tract, Via Natural or Artificial Opening Endoscopic (ICD-10-PCS; CPT 43235; principal; 2021-05-05 13:55)
DX: Z43.1 Encounter for attention to gastrostomy (principal); E11.51 Type 2 diabetes mellitus with diabetic peripheral angiopathy without gangrene; G35 Multiple sclerosis; F03.90 Unspecified dementia, unspecified severity, without behavioral disturbance, psychotic disturbance, mood disturbance, and anxiety; I11.0 Hypertensive heart disease with heart failure; I50.32 Chronic diastolic (congestive) heart failure; I48.0 Paroxysmal atrial fibrillation; N13.2 Hydronephrosis with renal and ureteral calculous obstruction; I25.10 Atherosclerotic heart disease of native coronary artery without angina pectoris; R63.30 Feeding difficulties, unspecified; K21.9 Gastro-esophageal reflux disease without esophagitis; E78.5 Hyperlipidemia, unspecified; R13.12 Dysphagia, oropharyngeal phase; K31.7 Polyp of stomach and duodenum; B96.1 Klebsiella pneumoniae [K. pneumoniae] as the cause of diseases classified elsewhere; K29.70 Gastritis, unspecified, without bleeding; N39.0 Urinary tract infection, site not specified; G47.33 Obstructive sleep apnea (adult) (pediatric); G50.0 Trigeminal neuralgia; Z87.891 Personal history of nicotine dependence; Z79.01 Long term (current) use of anticoagulants; Z86.718 Personal history of other venous thrombosis and embolism; Z79.899 Other long term (current) drug therapy
CPT/HCPCS: 43246; 43239; 36415; 71045; 74177; 74230; 80048; 80053; 81001; 83036; 83735; 84484; 85025; 85027; 85610; 87077; 87086; 87088; 87186; 87426; 88305; 88342; 92611; 93005; 94640; 94667; 94668; 96365; 96366; 96367; 96375; 96376; 97802; 97803; 99218; 99251; 99285; J7030; J7040; P9612; Q9967; A4216; G0378; G0463; J2405; J3490

== ENCOUNTER → 2021-06-08 | Outpatient (CLI) | payer MEDICARE, MEDICAID, SELFPAY ==
--- NOTE | 2021-06-08 14:25 | ST.MBS ---
Modified Barium Swallow - Patient Information Study Date: 06/08/21 Study Time: 13:00 Direct Billable Minutes: 120 Total Minutes procedure & reportin Diagnosis: Multiple sclerosis (G35), Dysphagia (R13.10) Referring Physician: Veronika Kimbrough NP Reason for Referral: Objectively assess swallow function, risk for aspiration, and determine recommendations for least restrictive diet textures and compensatory strategies to improve safety of swallow. Medical History: The patient is a 76-year-old female with PMH including MS, GERD, DM Type 2, dementia (unspecified), malignant neoplasm of lip unspecified (SEE chart for full PMH) who was initially referred for MBS study late April 2021 after increased difficulty swallowing. The patient was requiring full liquid diet at the time. MBS study completed 05/03/2021, and the patient was recommended to be NPO with repeat study in 4-8 weeks after implementation of intensive oropharyngeal strengthening program. She had PEG tube placed 05/05/2021 with upper GI revealing gastritis, polyps, and nodules. She has been referred for repeat study reassess swallow function and determine risk for aspiration, as well as appropriateness for diet advancement. Per patient report, she completes oropharyngeal exercises 2X daily. Current Diet Ordered: NPO with PEG tube Mental Status: Impaired - Pt did not elicit double swallow when cued. She required cues to decrease speaking during trials. Respiratory Status: Oxygenating on 2L/M nasal cannula - Penetration-Aspiration Scale Penetration-Aspiration Scale: OBJECTIVE ASSESSMENT OF SWALLOW FUNCTION (QUANTITATIVE ? PER TRIAL): PENETRATION / ASPIRATION SCALE (ALVAREZ): 1 = does not enter airway 2 = enters airway/above vocal folds/ejected 3 = enters airway/above vocal folds/not ejected 4 = enters airway/contacts vocal folds/ejected 5 = enters airway/contacts vocal folds/not ejected 6 = enters airway/below vocal folds/ejected 7 = enters airway/below vocal folds/not ejected despite effort 8 = enters airway/below vocal folds/no effort VIDEOFLOROSCOPIC SCALE SCORE (ALVAREZ): Grade I = aspiration of material that has penetrated into the laryngeal vestibule, intact cough reflex Grade II = aspiration < 10 % of the bolus, intact cough reflex Grade III = aspiration of < 10 % of the bolus, reduced cough reflex or aspiration of > 10 % of the bolus, intact cough reflex Grade IV = aspiration of > 10 % of the bolus, reduced cough reflex - Penetration-Aspiration Scale Score Thin Liquid via teaspoon Result: 2= enter airway/above vocal folds/ejected Thin Liquid via teaspoon Trial 2 Result: 1= does not enter airway Thin Liquid via small single sip from cup Result: 1= does not enter airway Thin Liquid via small single sip from cup Trial 2 Result: 2= enter airway/above vocal folds/ejected [place] Thick Liquid via small single sip from cup Result: 3= enters airways/above vocal folds/not ejected Honey Thick Liquid via small single sip from cup Result: 2= enter airway/above vocal folds/ejected Pudding via teaspoon with esophageal screen Result: 1= does not enter airway 1/4 Cookie with esophageal screen Result: 1= does not enter airway Thin Liquid via single sip from straw Result: 2= enter airway/above vocal folds/ejected Thin Liquid via single sip from straw Trial 2 Result: 7= enters airways/below vocal folds/not ejected despite effort Comment: Aspiration before and during the swallow, <10% of bolus, reduced cough reflex. Thin Liquid via small single sip from cup Trial 3 Result: 7= enters airways/below vocal folds/not ejected despite effort Comment: Aspiration before and during the swallow, <10% of bolus, reduced cough reflex. [place] Thick Liquid via small single sip from cup Trial 2 Result: 3= enters airways/above vocal folds/not ejected [place] Thick Liquid via small single sip from cup Trial 3 Result: 3= enters airways/above vocal folds/not ejected Honey Thick Liquid via small single sip from cup Trial 2 Result: 1= does not enter airway Comment: Contrast from previous trial present on vocal folds. Pudding via teaspoon Result: 2= enter airway/above vocal folds/ejected Comment: Trace contrast on anterior wall of trachea - suspect post prandial aspiration of previous trials of nectar thick liquids. [place] Thick Liquid via teaspoon Double swallow Result: 5= enters airways/contacts vocal folds/not ejected - Pt elicited cough that was somewhat effective at clearing contrast from laryngeal vestibule. Honey Thick Liquid via teaspoon Result: 1= does not enter airway Honey Thick Liquid via teaspoon Trial 2 Result: 1= does not enter airway Pudding via teaspoon Trial 2 Result: 1= does not enter airway - Oral Phase Labial Seal: Escape beyond interlabial space; no extension beyond marcella border Tongue Control During Bolus Hold: Posterior escape of greater than half of bolus - especially noted with thin liquid Bolus Preparation/Mastication: Disorganized chewing/mashing with solid pieces of bolus unchewed Bolus Transport/Lingual Motion: Repetitive/disorganized tongue motion Oral Residue: Residue collection on oral structures - Pharyngeal Phase Initiation of Pharyngeal Swallow: Bolus head in pyriforms Laryngeal Elevation: Partial superior movement thyroid cart/partial apprx aryt-epig petiole Anterior Hyoid Excursion: Partial anterior movement Epiglottic Movement: Complete inversion Laryngeal Vestibule Closure at Height of Swallow: None; wide column of air/contrast in laryngeal vestibule - Wide column of contrast observed in laryngeal vestibule on two trials of thin liquids resulting in aspiration. Other trials, the patient achieved complete closure or incomplete with narrow column of contrast Pharyngeal Stripping Wave: Present - diminished Pharyngoesophageal Segment Opening: Complete distension and complete duration; no obstruction of flow Tongue Base Retraction: Narrow column of contrast between tongue base & post. pharyngeal wall - Esophageal Phase Esophageal Clearance: Complete clearance - Treatment Strategies Effects of treatment strategies attemped:: Decreased bolus size = Effective. Double swallow = Patient did not follow directions to execute strategy. - Diagnosis/Impression Diagnosis: Moderate-severe oropharyngeal phase dysphagia (R13.12) Impression: The oral phase is marked by decreased mastication and decreased bolus control. She had premature posterior loss of bolus to the laryngeal vestibule and airway with the two thin liquid trials resulting in aspiration before the swallow. Lingual pumping observed during A-P transport. Trace to mild oral residue after the swallow. The pharyngeal phase is primarily marked by delayed swallow onset and decreased airway closure during the swallow. The patient still has deficits in laryngeal elevation and anterior hyoid excursion; however, she did demonstrate improved epiglottic inversion from previous study. She demonstrated aspiration of thin liquid trials via cup and straw before the swallow with weak and ineffective cough reflex. The patient demonstrated laryngeal penetration of nectar thick trials that did not reliably eject from the laryngeal vestibule after the swallow. GROUP EXERCISE CLASS INSTRUCTOR suspected silent post prandial aspiration of nectar thick liquids via cup with trace contrast observed in the trachea on subsequent trials. The patient demonstrated laryngeal penetration of honey thick liquids via cup on one trial, but it appeared to fully eject from the laryngeal vestibule. SEE PAS scores above for details. - Recommendations Diet: Puree Textures - Moist, Honey-thick Liquids Comment: Cue cough and re-swallow if wet vocal quality. Limit distractions, encourage no speaking while taking bites/sips. Compensatory Strategies: Small Bites, Small Sips, Liquid by Teaspoon Only, Slow Rate, Sitting upright, Remain sitting upright for 30 minutes after PO intake, Assist with verbal cues to use recommended strategies Supervision: 1:1 Close Supervision Recommend Repeat Modified Barium Swallow: Yes - Will recommend repeat MBS study in 6-8 weeks after continued implementation of oropharyngeal exercise program to determine appropriateness for diet advancement. Need for Skilled Speech Therapy Services: Yes Comment: Will recommend the patient for continued dysphagia therapy at current level of care to address deficits in oropharyngeal swallow function. Would consider the patient for continued oropharyngeal strengthening to improve lingual coordination, tongue base retraction, laryngeal elevation, and hyoid excursion (lingual resistance, effortful swallow, Ramila, CTAR, Shelia). The patient would benefit from thorough education regarding diet recommendations and recommended compensatory strategies. Closely monitor lung sounds when assessing diet tolerance. Education Completed: 1. Described result of evaluation., 7. Pt requires further education on strategies & risks. - Status Active ST Patient: Active - Contact Information [facility] Speech Therapy:: Delma Arteaga M.A. [facility]-GROUP EXERCISE CLASS INSTRUCTOR Speech-Language Pathologist [facility] [address] [place] [address] [email or web address] [phone] 06/08/21 16:26
== END | disposition home or self-care (01) ==
LOC: RAD 12:46
PROVIDERS: PCP Family Medicine; Referring Provider Nurse Practitioner Family; Visit Provider Nurse Practitioner Family
DX: R13.10 Dysphagia, unspecified (principal)
CPT/HCPCS: 74230; 92611

== ENCOUNTER → 2021-08-03 | Outpatient (CLI) | payer MEDICARE, MEDICAID, SELFPAY ==
--- NOTE | 2021-08-03 10:11 | MRI_ITS ---
STUDY: MRI BRAIN WITH AND WITHOUT CONTRAST REASON FOR EXAM: Female, 76 years old. MS TECHNIQUE: Standardized multiplanar fat and water weighted pulse sequences were obtained. IV 18ml dotarem was administered for the contrast portion of the examination. COMPARISON: 07/04/2019 FINDINGS: Moderate atrophy and advanced nonspecific periventricular white matter without mass effect or restricted diffusion. This likely represents small vessel ischemic changes in patient of this age although coexisting demyelinating disease is not excluded as there is apparent involvement of the corpus callosum Probable old lacunar infarct in right basal ganglia.. Normal thalami. There is no extra-axial fluid accumulation. . Normal flow voids within the major intracranial circulation suggesting patency by spin echo criteria. Normal venous enhancement. There is no enhancing intra-axial or extra-axial abnormality. Normal sella turcica, pituitary gland, infundibular stalk, optic chiasm and hypothalamus. Normal tectal plate and pineal gland. Nonspecific gliosis within the ammon and right middle cerebellar peduncle possibly representing demyelinating disease. Normal midbrain, and medulla. Mild cerebellar atrophy.. Normal basal cisterns. Normal bilateral temporal bones. Normal bilateral internal auditory canals. Increased signal intensity within left mastoid air cells which may be on the basis of laboratory changes. Postsurgical changes of the orbits. Normal visualized paranasal sinuses. Normal calvarium and skull base. Normal visualized soft tissue structures. Normal visualized upper cervical spine. MRI/Brain W/WO Contrast IMPRESSION: Atrophy and advanced periventricular white matter ischemic changes likely on the basis of chronic small vessel ischemic changes. There is apparent involvement of the corpus callosum and right middle cerebellar peduncle as well as the ammon makes it difficult to exclude coexisting long-standing chronic demyelinating disease. No evidence for acute infarct. There are no enhancing lesions suggest acute demyelination at this time. Electronically Signed: Ryan Roman MD at 16:00 EDT ,
[2021-08-03 10:35] LABS: CREATININE FINGERSTICK < 0.9 mg/dL (0.55-1.02); EGFR FINGERSTICK > 60.0000 mL/min (>60)
== END | disposition home or self-care (01) ==
LOC: MRI 10:04
PROVIDERS: PCP Family Medicine; Referring Provider Nurse Practitioner Family; Visit Provider Nurse Practitioner Family
DX: G35 Multiple sclerosis (principal)
CPT/HCPCS: 70553; A9575

== ENCOUNTER → 2021-08-26 | Outpatient (CLI) | payer MEDICARE, MEDICAID, SELFPAY ==
--- NOTE | 2021-08-26 14:08 | ST.MBS ---
Modified Barium Swallow - Patient Information Study Date: 08/26/21 Study Time: 13:00 Direct Billable Minutes: 110 Total Minutes procedure & reportin Diagnosis: Multiple sclerosis (G35), Dysphagia (R13.10) Referring Physician: Veronika Kimbrough NP Reason for Referral: Objectively assess swallow function, risk for aspiration, and determine recommendations for least restrictive diet textures and compensatory strategies to improve safety of swallow. Medical History: The patient is a 76-year-old female with PMH including MS, GERD, DM Type 2, dementia (unspecified), malignant neoplasm of lip unspecified (SEE chart for full PMH) who was initially referred for MBS study late April 2021 after increased difficulty swallowing. The patient was requiring full liquid diet at the time. MBS study completed 05/03/2021, and the patient was recommended to be NPO with repeat study in 4-8 weeks after implementation of intensive oropharyngeal strengthening program. She had PEG tube placed 05/05/2021 with upper GI revealing gastritis, polyps, and nodules. Repeat MBS study completed on 06/08/2021 after implementation of oropharyngeal strengthening program, and the study recommended diet advancement to Puree textures / Honey (moderately) thick liquids with 1:1 supervision. She is currently on Puree textures / Honey (moderately) thick liquids with use of PEG tube only when she consumes <1/2 of her meal. She has been referred for repeat study reassess swallow function and determine appropriateness for diet advancement. Per patient report, she continues to complete oropharyngeal exercises 2X daily. Current Diet Ordered: Puree Textures / Moderately Thick Liquids Dentition: Upper Dentures, Partials - Not present as they are ill-fitting and hurt her gums. Respiratory Status: Oxygenating on Room Air - Penetration-Aspiration Scale Penetration-Aspiration Scale: OBJECTIVE ASSESSMENT OF SWALLOW FUNCTION (QUANTITATIVE ? PER TRIAL): PENETRATION / ASPIRATION SCALE (ALVAREZ): 1 = does not enter airway 2 = enters airway/above vocal folds/ejected 3 = enters airway/above vocal folds/not ejected 4 = enters airway/contacts vocal folds/ejected 5 = enters airway/contacts vocal folds/not ejected 6 = enters airway/below vocal folds/ejected 7 = enters airway/below vocal folds/not ejected despite effort 8 = enters airway/below vocal folds/no effort VIDEOFLOROSCOPIC SCALE SCORE (ALVAREZ): Grade I = aspiration of material that has penetrated into the laryngeal vestibule, intact cough reflex Grade II = aspiration < 10 % of the bolus, intact cough reflex Grade III = aspiration of < 10 % of the bolus, reduced cough reflex or aspiration of > 10 % of the bolus, intact cough reflex Grade IV = aspiration of > 10 % of the bolus, reduced cough reflex - Penetration-Aspiration Scale Score Thin Liquid via teaspoon Result: 3= enters airways/above vocal folds/not ejected Thin Liquid via teaspoon Effortful swallow Result: 2= enter airway/above vocal folds/ejected Thin Liquid via small single sip from cup Result: 1= does not enter airway [place] Thick Liquid via small single sip from cup Result: 1= does not enter airway [place] Thick Liquid via small single sip from cup Result: 1= does not enter airway Pudding via teaspoon Result: 1= does not enter airway 1/4 Cookie Result: 1= does not enter airway 1/2 Cookie Result: 1= does not enter airway Thin Liquid via single sip from straw Double swallow Result: 1= does not enter airway Thin Liquid via small single sip from cup Trial 2 Result: 1= does not enter airway [place] Thick Liquid via small single sip from cup Trial 2 Result: 1= does not enter airway Thin Liquid via small single sip from cup Double swallow Result: 1= does not enter airway - Oral Phase Labial Seal: No Labial Escape Tongue Control During Bolus Hold: Posterior escape of greater than half of bolus - pudding Bolus Preparation/Mastication: Disorganized chewing/mashing with solid pieces of bolus unchewed - Disorganized mashing, but bolus appeared chewed; however, posterior loss of cookie to posterior surface of the epiglottis prior to swallow onset. Bolus Transport/Lingual Motion: Repetitive/disorganized tongue motion Oral Residue: Residue collection on oral structures - Pharyngeal Phase Initiation of Pharyngeal Swallow: Bolus head at posterior laryngeal surgace of epiglottis Soft Palate Elevation: No bolus between soft palate and pharyngeal wall Laryngeal Elevation: Partial superior movement thyroid cart/partial apprx aryt-epig petiole Anterior Hyoid Excursion: Partial anterior movement Epiglottic Movement: Complete inversion Laryngeal Vestibule Closure at Height of Swallow: Incomplete; narrow column of air/contrast in laryngeal vestibule Pharyngeal Stripping Wave: Present - complete Pharyngoesophageal Segment Opening: Complete distension and complete duration; no obstruction of flow Tongue Base Retraction: Narrow column of contrast between tongue base & post. pharyngeal wall Pharyngeal Residue: Collection of residue within or on pharyngeal structures - Treatment Strategies Effects of treatment strategies attemped:: Double swallow = Effective in clearing residue from pharynx. - Diagnosis/Impression Diagnosis: Mild oropharyngeal phase dysphagia (R13.12) Impression: The oral phase is marked by... -Slow, disorganized mastication. She reports needing to chew all textures in the front of her mouth due to missing teeth. -Decreased bolus control with premature posterior loss of >1/2 of pudding bolus to the vallecula prior to swallow onset. Posterior loss of <1/2 of cookie bolus to the posterior surface of the epiglottis. -Lingual pumping for A-P transport of cookie. -Mild oral residue of cookie after the swallow. The pharyngeal phase is marked by... -Decreased tongue base retraction resulting in mild pharyngeal residues after the swallow. Pt benefits from double swallow to clear pharyngeal residue. -Mildly decreased laryngeal elevation and anterior hyoid excursion. -Laryngeal penetration of thin liquid via tsp without full ejection from the laryngeal vestibule after the swallow. No aspiration observed during the study; however, she is at increased risk to aspirate residue remaining in the laryngeal vestibule or pharynx after the swallow. - Recommendations Diet: Thin Liquids - Soft and bite size textures (IDDSI Level 6) - avoid mixed consistencies of thin liquid and solid textures Compensatory Strategies: Small Bites, Small Sips, Slow Rate - Sips one at a time, Multiple Swallows - Double swallow with each sip, Sitting upright, Remain sitting upright for 30 minutes after PO intake Supervision: 1:1 Close Supervision - Supervision at meals to ensure use of strategies, treating DESIGN PRINTING MACHINE SET UP OPERATOR may consider decreasing supervision needs if the patient demonstrates good adherence to aspiration precautions Recommend Repeat Modified Barium Swallow: Yes - Would consider MBS study to monitor swallow function every 1-2 years or if the patient experiences worsening s/s of aspiration. Need for Skilled Speech Therapy Services: Yes Comment: Will recommend skilled speech therapy services to train the patient in recommended diet textures and aspiration precautions. Will recommend monitoring lung sounds when assessing diet tolerance. Consider decreasing supervision needs if the patient demonstrates good follow through with recommended aspiration precautions. Will recommend trialing easy to chew and regular textures with DESIGN PRINTING MACHINE SET UP OPERATOR to consider the patient for further diet advancement at bedside. Would consider a maintenance oropharyngeal exercise program to maintain optimal swallow function. Education Completed: 1. Described result of evaluation., 2. Pt understands evaluation & agrees with goals and treatment plan., 7. Pt requires further education on strategies & risks. - Status Active ST Patient: Active - Contact Information [facility] Speech Therapy:: Delma Arteaga M.A. [facility]-DESIGN PRINTING MACHINE SET UP OPERATOR Speech-Language Pathologist [facility] [address] [place] [address] [email or web address] [phone] 08/26/21 14:15
== END | disposition home or self-care (01) ==
LOC: RAD 12:57
PROVIDERS: PCP Family Medicine; Referring Provider Nurse Practitioner Family; Visit Provider Nurse Practitioner Family
DX: R13.10 Dysphagia, unspecified (principal)
CPT/HCPCS: 74230; 92611

== ENCOUNTER 2021-11-22 08:05 | Inpatient (IN) | payer MEDICARE, MEDICAID, SELFPAY ==
[2021-11-22] VITALS (14 sets, daily range): BP systolic 133–186; BP diastolic 63–75; PULSE 84–101; RESP 18–36; TEMP 36.2–37.6; O2SAT 78–98; BMI 42.3; BMI 40.1
--- NOTE | 2021-11-22 08:16 | RAD_ITS ---
STUDY: X-RAY CHEST REASON FOR EXAM: Female, 76 years old. Sob TECHNIQUE: Single AP portable view of the chest. COMPARISON: Comparison is made with prior study dated 05/05/2021. FINDINGS: EKG electrodes are seen. Increased markings are seen at the lung bases more prominent at the left lung base. This has progressed as compared to prior study and may represent atelectasis superimposed on scarring. There is no demonstrated pleural abnormality. Sternal cerclage wires and vascular clips are present from a prior sternotomy and coronary artery bypass graft procedure (CABG). Normal mediastinum and alee. Normal visualized pulmonary arteries. There is atherosclerotic calcification of the aortic arch with tortuosity. There are diffuse degenerative changes of the visualized thoracic spine. There is degenerative osteoarthritis of the bilateral shoulders. There is no demonstrated abnormality of the visualized soft tissue structures of the upper abdomen. RAD/Chest 1 View (Portable) IMPRESSION: Findings suggestive of bibasilar atelectasis more prominent on the left side superimposed on basilar scarring. This has progressed as compared to prior study. Electronically Signed: Milo Hughes MD at 8:56 EDT ,
--- NOTE | 2021-11-22 08:16 | EKG12_ITS ---
Test Reason : Blood Pressure : / mmHG Vent. Rate : 087 BPM Atrial Rate : 087 BPM P-R Int : 152 ms QRS Dur : 078 ms QT Int : 352 ms P-R-T Axes : 056 019 154 degrees QTc Int : 423 ms Normal sinus rhythm ST & T wave abnormality, consider lateral ischemia Abnormal ECG Confirmed by REBECCA HATCH, CHERYL ([id number]), copy editor BOBBY VELA ([id number]) on 11/24/2021 12:32:46 PM Referred By: Confirmed By:CHERYL FERNANDEZ MD
--- NOTE | 2021-11-22 08:17 | EX.ED.DYSGE1 ---
HPI History of Present Illness Chief Complaint: Shortness of Breath Informant: patient, EMS and SNF Onset/Context/Timing Onset: Days Context: Gradual Onset Current Severity: Moderate Maximum Severity: Moderate Narrative Narrative: Patient present secondary to cough, congestion, chest pain for the past 2 days. She was sent in from the [facility]. Nursing report stated that she had a temperature of 99.5 this morning. She said cough, congestion, some chest pressure. When I asked the patient where she is having pain she states pick a spot. She reportedly had a COVID test that was negative. Patient does not normally wear home oxygen. The patient was taken off of the squad oxygen to move her to our cot and dropped her O2 sat to 78% on room air. [facility] Medical History Acute on chronic renal failure Acute respiratory insufficiency Atherosclerotic heart disease of [place] coronary artery without angina pectoris Bilateral pneumonia Carcinoma of lip Cellulitis of right leg Chronic GI bleeding Congestive heart failure (CHF) Debility Dementia Diabetic ulcer of both lower extremities Diastolic CHF Essential hypertension Feeding difficulty in adult General weakness GERD (gastroesophageal reflux disease) GERD (gastroesophageal reflux disease) History of DVT (deep vein thrombosis) Hyperlipidemia Iron deficiency anemia [facility] current use of amiodarone Multiple sclerosis LAURITA (obstructive sleep apnea) LAURITA (obstructive sleep apnea) Paroxysmal atrial fibrillation Peripheral vascular disease Presence of stent in coronary artery (~08/29/12) Pyelonephritis Restrictive airway disease Swallowing dysfunction Trigeminal neuralgia Type 2 diabetes mellitus Ulcer of left lower extremity with fat layer exposed Ulcer of right lower extremity with fat layer exposed UTI (urinary tract infection) Venous insufficiency of both lower extremities Venous insufficiency of both lower extremities Home Medications albuterol sulfate 2.5 mg/3 mL (0.083 %) solution for nebulization 2.5 mg (3 mL) inhalation Q2H PRN PRN SOB/Wheezing 08/12/19 [Rx Last Taken Unknown] acetaminophen 325 mg tablet 650 mg feeding tube Q6H PRN PAIN AND FEVER #0 tabs 05/07/21 [Rx Last Taken Unknown] apixaban 2.5 mg tablet 5 mg feeding tube BID DVT #0 tabs 05/07/21 [Rx Last Taken 10/21/20] atorvastatin 20 mg tablet 20 mg feeding tube QHS cholesterol #0 tabs 05/07/21 [Rx Last Taken 10/20/20] carbamazepine 200 mg/10 mL oral suspension 200 mg (10 mL) G-tube BID #0 mL 05/07/21 [Rx Last Taken Unknown] gabapentin 300 mg capsule 300 mg G-tube BID #0 caps 05/07/21 [Rx Last Taken Unknown] hydralazine 50 mg tablet 50 mg feeding tube TID bp #0 tabs 05/07/21 [Rx Last Taken 10/21/20] polyethylene glycol 3350 17 gram/dose oral powder 17 g feeding tube DAILY #0 grams 05/07/21 [Rx Last Taken Unknown] sulfamethoxazole 800 mg-trimethoprim 160 mg tablet 1 tab G-tube BID #0 tabs 05/07/21 [Rx Last Taken Unknown] amiodarone 200 mg tablet 100 mg G-tube DAILY 11/22/21 [History Last Taken Unknown] amlodipine 2.5 mg tablet 5 mg feeding tube DAILY HTN 11/22/21 [History Last Taken Unknown] duloxetine 30 mg capsule,delayed release 60 mg PO DAILY 11/22/21 [History Last Taken Unknown] Allergy/AdvReac Type Severity Reaction Status Date / Time codeine Allergy Unknown Hives Verified 05/03/21 16:48 cefazolin Allergy Rash Verified 05/03/21 16:48 ciprofloxacin [From Cipro] Allergy Hives Verified 05/03/21 16:48 ciprofloxacin HCl Allergy Hives Verified 05/03/21 16:48 [From Cipro] Latex, Natural Rubber Allergy Rash Verified 05/03/21 16:48 Penicillins [PCN] Allergy Hives Verified 05/03/21 16:48 vancomycin Allergy Angioedema Verified 05/03/21 16:48 adhesive tape AdvReac Rash Verified 05/03/21 16:48 Family History Father Heart disease Cancer prostate Mother Hypertension Cancer mets but unsure where to Breast cancer Brother Diabetes Hypertension Surgical History History of cataract surgery History of cholecystectomy History of coronary artery bypass surgery (~01/02/11) History of hernia repair History of tonsillectomy and adenoidectomy History of total hysterectomy Presence of coronary angioplasty implant and graft (~08/29/12) S/P percutaneous endoscopic gastrostomy (PEG) tube placement Social History Smoking Status: Former smoker how long ago did patient quit smokin alcohol intake: never substance use type: does not use caffeine: Yes Type: coffee Number of servings: 1 additional social history: DOES NOT USE ASPIRIN DOES US IBUPROFEN ROS ROS ED Constitutional Constitutional ED: Denies chills or fever(s) Eyes Eyes: Denies change in vision or discharge from eye(s) ENT ENT ED: Denies discharge from eye(s), rhinorrhea or sore throat Cardiovascular Cardiovascular: Reports chest pain; Denies palpitations Respiratory/Chest Respiratory/Chest: Reports cough and dyspnea Gastrointestinal Gastrointestinal: Denies abdominal pain, diarrhea, nausea or vomiting Genitourinary Genitourinary ED: Denies dysuria Musculoskeletal Musculoskeletal: Reports myalgias; Denies back pain or extremity pain Integumentary Denies Abrasions or rash Neurologic Neurologic: Reports weakness; Denies headache(s) Psychiatric Psychiatric: Denies anxiety or depression Allergic/Immunologic Allergic/Immunologic ED: Denies lip swelling or urticaria EXAM Physical Exam Const Vital Signs: 11/22/21 08:06 11/22/21 08:09 11/22/21 08:09 Temperature 97.2 F L 97.2 F L Temperature Source Oral Oral Pulse Rate 87 87 Respiratory Rate 19 H 19 H Respiratory Effort Respiratory Depth Respiratory Pattern Blood Pressure 186/70 H 186/70 H Blood Pressure Mean 108 108 Pulse Ox 78 78 98 Oxygen Delivery Method Room Air Room Air Nasal Cannula Oxygen Flow Rate (L/min) 4 11/22/21 08:09 11/22/21 08:49 Temperature Temperature Source Pulse Rate 86 Respiratory Rate 36 H Respiratory Effort Short of Breath Respiratory Depth Shallow Respiratory Pattern Tachypnea Blood Pressure 163/73 H Blood Pressure Mean 103 Pulse Ox 95 Oxygen Delivery Method Nasal Cannula Nasal Cannula Oxygen Flow Rate (L/min) 4 Positive well nourished and well developed General Appearance ED: well developed HEENT Reports normocephalic and head/scalp atraumatic Eyes PERRL and EOMs intact bilaterally Neck supple Chest Wall inspection of chest normal and palpation of chest normal Resp Resp Narrative: Mild tachypnea. Rhonchi with mild crackles noted throughout. Cardio regular rate and regular rhythm GI non-tender Auscultation: hypoactive bowel sounds Palpation: soft Extremity Extremity Narrative: 1-2+ bilateral lower extremity edema. Neuro oriented x3 Neuro Narrative: No focal neurologic deficit. Sensorium / Orientation: alert Psych mental status grossly normal Skin no rashes or lesions noted MDM MDM MDM Narrative Medical decision making narrative: Sepsis work-up is initiated. Chest x-ray and EKG performed. Lab Data Attestation: I reviewed the patient's lab results. Labs: Laboratory Results - last 24 hr 11/22/21 11/22/21 11/22/21 08:15 08:15 08:15 WBC 20.0 H RBC 4.48 Hgb 11.0 L Hct 37.2 MCV 83.0 MCH 24.6 L MCHC 29.6 L RDW Std Deviation 50.1 H RDW Coeff of Carissa 16.6 H Plt Count 294 MPV 9.9 Immature Gran % (Auto) 0.500 Neut % (Auto) 81.4 H Lymph % (Auto) 10.2 L [place] % (Auto) 6.7 Eos % (Auto) 1.0 Baso % (Auto) 0.2 Absolute Neuts (auto) 16.3 H Absolute Lymphs (auto) 2.05 Nucleated RBC % 0 Sodium 141 Potassium 3.5 Chloride 103 Carbon Dioxide 32.0 Anion Gap 6 BUN 11 Creatinine 0.75 Estim Creat Clear Calc 33.84 Est GFR (MDRD) Af Amer 96 Est GFR (MDRD) Non-Af 79 BUN/Creatinine Ratio 14.6 Glucose 159 H Lactic Acid 0.7 Calcium 8.8 Total Bilirubin 0.40 Direct Bilirubin 0.13 AST 10 L ALT 14 Alkaline Phosphatase 106 Troponin I High Sens 43 B-Natriuretic Peptide Total Protein 6.4 Albumin 2.3 L Globulin 4.1 11/22/21 08:15 WBC RBC Hgb Hct MCV MCH MCHC RDW Std Deviation RDW Coeff of Carissa Plt Count MPV Immature Gran % (Auto) Neut % (Auto) Lymph % (Auto) [place] % (Auto) Eos % (Auto) Baso % (Auto) Absolute Neuts (auto) Absolute Lymphs (auto) Nucleated RBC % Sodium Potassium Chloride Carbon Dioxide Anion Gap BUN Creatinine Estim Creat Clear Calc Est GFR (MDRD) Af Amer Est GFR (MDRD) Non-Af BUN/Creatinine Ratio Glucose Lactic Acid Calcium Total Bilirubin Direct Bilirubin AST ALT Alkaline Phosphatase Troponin I High Sens B-Natriuretic Peptide 273.8 H Total Protein Albumin Globulin Radiography Chest X-Ray - ED: 1 View, Read by ED Physician, CHF and Left Infiltrate Diagnostic Testing: Clinical Impression(s) from Imaging Studies Chest X-Ray 11/22/21 08:16 IMPRESSION: Findings suggestive of bibasilar atelectasis more prominent on the left side superimposed on basilar scarring. This has progressed as compared to prior study. Electronically Signed: Milo Hguhes MD at 8:56 EDT , EKG Initial EKG: Attestation: I personally reviewed and interpreted this EKG as follows: Interpretation: Sinus Rhythm (Sinus at 87 with no acute ischemia. Nonspecific lateral ST/T wave changes consistent with prior EKG.) Treatment and Re-Evaluation Narrative: CBC was elevated white count of 20 with 81% neutrophils. Hemoglobin is 11. Chemistry studies unremarkable. Lactic acid is normal at 0.7. BNP is 273. Troponin is normal. At this time patient be given a small dose of Lasix to help with diuresis as well as aztreonam. She has allergies to multiple antibiotics. I will discuss with hospitalist regarding admission. Discharge Plan Triage Chief Complaint: Shortness of Breath ED Provider: Ivon Freeman Dx/Rx/DC Orders Clinical Impression: Pneumonia, Respiratory failure Prescriptions: No Action albuterol sulfate 2.5 MG/3 ML solution for nebulization 2.5 mg inhalation Q2H PRN PRN (Reason: SOB/Wheezing) 0RF sulfamethoxazole-trimethoprim 800-160 mg Tablet 1 tab G-tube BID Qty: 0 0RF Rx Instructions: through the 4th gabapentin 300 mg Capsule 300 mg G-tube BID Qty: 0 0RF carbamazepine 200 mg/10 mL Suspension 200 mg G-tube BID Qty: 0 0RF acetaminophen 325 mg tablet 650 mg feeding tube Q6H PRN (Reason: PAIN AND FEVER) Qty: 0 0RF atorvastatin 20 MG tablet 20 mg feeding tube QHS Qty: 0 0RF hydralazine 50 MG tablet 50 mg feeding tube TID Qty: 0 0RF Rx Instructions: hold for bp less than 100/60 polyethylene glycol 3350 17 gram/dose powder 17 g feeding tube DAILY Qty: 0 0RF apixaban 2.5 MG tablet 5 mg feeding tube BID Qty: 0 0RF amiodarone 200 mg tablet 100 mg G-tube DAILY amlodipine 2.5 mg tablet 5 mg feeding tube DAILY duloxetine 30 mg capsule,delayed release(DR/EC) 60 mg PO DAILY Primary Care Provider: Uriel Mac Referrals: Uriel Mac MD [Primary Care Provider] - Disposition Disposition: Acute Care Hospital [facility]
[2021-11-22 08:32] LABS: Absolute Lymphocyte Count 2.05 X10^3/uL (0.83-4.51); Absolute Neutrophil Count 16.3 X10^3/uL (2.0-7.7); Basophil# 0.04 X10^3/uL; Basophil% 0.2 % (0-1); Hematocrit 37.2 % (37-47); Lymphocyte # 2.05 X10^3/ul (0.83-4.51); Lymphocyte % 10.2 % (19-41); Mean Corp Hgb Conc 29.6 g/dL (32-36); Mean Corpuscular Hgb 24.6 pg (27.0-32.0); Mean Platelet Vol. 9.9 fl (6.2-12.0); Monocyte# 1.34 X10^3/uL; Monocyte% 6.7 % (0-10); NRBC Flagged by Analyzer 0 % (0-5); Neutrophil % 81.4 % (47-70); Platelet Count 294 K/mm3 (150-450); RBC Distribution Width CV 16.6 % (11.6-14.6); RBC Distribution Width SD 50.1 fl (35.1-43.9); Red Blood Count 4.48 M/mm3 (4.2-5.4)
[2021-11-22 08:48] LABS: AST(SGOT) 10 U/L (15-37); Alanine Aminotransfer ALT/SGPT 14 U/L (13-56); Albumin, Serum 2.3 g/dL (3.2-5.0); Alkaline Phosphatase 106 U/L (45-117); Anion Gap 6 (5-15); BUN 11 mg/dL (7-18); BUN/Creat Ratio 14.6 RATIO (10-20); Bilirubin, Direct 0.13 mg/dL (0.00-0.30); Calcium,Total 8.8 mg/dL (8.5-10.1); Chloride 103 mmol/L (98-107); Creatinine, Serum 0.75 mg/dL (0.55-1.02); EST Glomerular Filtration Rate 79 mL/min (>60); Est Glom Filt Rate - Afr Amer 96 mL/min (>60); Estimated Creatinine Clearance 33.84 ml/min; Globulin 4.1 g/dL (2.2-4.2); Glucose 159 mg/dL (74-106); Potassium 3.5 mmol/L (3.5-5.1); Protein, Total 6.4 g/dL (6.4-8.2); Sodium Level 141 mmol/L (136-145); Troponin-I HS (w/2H Reflex) 43 pg/mL (3.0-54.0)
[2021-11-22 08:50] LABS: BNP,B-Type NATRIURETIC PEPTIDE 273.8 pg/mL (0-100)
[2021-11-22 08:57] LABS: Lactic Acid 0.7 mmol/L (0.4-1.9)
[2021-11-22] MEDS: Furosemide 20 MG/2 ML VIAL IV (09:13)
--- NOTE | 2021-11-22 09:30 | NURSING ---
MED SURG KITTOE PNEUMONIA, CHF
--- NOTE | 2021-11-22 09:36 | PCM.HP.STD ---
[facility] - General General Date of Admission: 11/22/21 Date of Service: 11/22/21 Chief Complaint: Shortness of breath HPI Narrative SINA VIZCARRA, is a 76 F resident at an [facility] who was brought to the emergency department with shortness of breath, cough as well as chest congestion. Patient symptoms apparently started 2 days prior to her admission. Her symptoms have gotten progressively worse. She was also reported to have developed low-grade fever at the intermediate. She was found to be significantly hypoxic with oxygen saturation at 78% on room air on the morning of her admission. She was therefore brought to the emergency department as a result. An assessment of acute hypoxia secondary to combination of CHF and suspected pneumonia made. Admitted to a monitored bed for further management. [facility] Medical History (Updated 11/22/21 @ 10:[address] 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 Multiple sclerosis LAURITA (obstructive sleep apnea) LAURITA (obstructive sleep apnea) Paroxysmal atrial fibrillation Peripheral vascular disease Presence of stent in coronary artery (~08/29/12) Pyelonephritis Restrictive airway disease Swallowing dysfunction Trigeminal neuralgia Type 2 diabetes mellitus Ulcer of left lower extremity with fat layer exposed Ulcer of right lower extremity with fat layer exposed UTI (urinary tract infection) Venous insufficiency of both lower extremities Venous insufficiency of both lower extremities Home Medications albuterol sulfate 2.5 mg/3 mL (0.083 %) solution for nebulization 2.5 mg (3 mL) inhalation Q2H PRN PRN SOB/Wheezing 08/12/19 [Rx Last Taken Unknown] acetaminophen 325 mg tablet 650 mg feeding tube Q6H PRN PAIN AND FEVER #0 tabs 05/07/21 [Rx Last Taken Unknown] apixaban 2.5 mg tablet 5 mg feeding tube BID DVT #0 tabs 05/07/21 [Rx Last Taken 10/21/20] atorvastatin 20 mg tablet 20 mg feeding tube QHS cholesterol #0 tabs 05/07/21 [Rx Last Taken 10/20/20] carbamazepine 200 mg/10 mL oral suspension 200 mg (10 mL) G-tube BID #0 mL 05/07/21 [Rx Last Taken Unknown] gabapentin 300 mg capsule 300 mg G-tube BID #0 caps 05/07/21 [Rx Last Taken Unknown] hydralazine 50 mg tablet 50 mg feeding tube TID bp #0 tabs 05/07/21 [Rx Last Taken 10/21/20] polyethylene glycol 3350 17 gram/dose oral powder 17 g feeding tube DAILY #0 grams 05/07/21 [Rx Last Taken Unknown] sulfamethoxazole 800 mg-trimethoprim 160 mg tablet 1 tab G-tube BID #0 tabs 05/07/21 [Rx Last Taken Unknown] amiodarone 200 mg tablet 100 mg G-tube DAILY 11/22/21 [History Last Taken Unknown] amlodipine 2.5 mg tablet 5 mg feeding tube DAILY HTN 11/22/21 [History Last Taken Unknown] duloxetine 30 mg capsule,delayed release 60 mg PO DAILY 11/22/21 [History Last Taken Unknown] Allergy/AdvReac Type Severity Reaction Status Date / Time codeine Allergy Unknown Hives Verified 05/03/21 16:48 cefazolin Allergy Rash Verified 05/03/21 16:48 ciprofloxacin [From Cipro] Allergy Hives Verified 05/03/21 16:48 ciprofloxacin HCl Allergy Hives Verified 05/03/21 16:48 [From Cipro] Latex, Natural Rubber Allergy Rash Verified 05/03/21 16:48 Penicillins [PCN] Allergy Hives Verified 05/03/21 16:48 vancomycin Allergy Angioedema Verified 05/03/21 16:48 adhesive tape AdvReac Rash Verified 05/03/21 16:48 Family History Father Heart disease Cancer prostate Mother Hypertension Cancer mets but unsure where to Breast cancer Brother Diabetes Hypertension Surgical History History of cataract surgery History of cholecystectomy History of coronary artery bypass surgery (~01/02/11) History of hernia repair History of tonsillectomy and adenoidectomy History of total hysterectomy Presence of coronary angioplasty implant and graft (~08/29/12) S/P percutaneous endoscopic gastrostomy (PEG) tube placement Social History Smoking Status: Former smoker how long ago did patient quit smokin alcohol intake: never substance use type: does not use caffeine: Yes Type: coffee Number of servings: 1 additional social history: DOES NOT USE ASPIRIN DOES US IBUPROFEN ROS ROS Narrative GENERAL: fever, chills, HEENT: sinus congestion, RESPIRATORY: cough, sputum production, shortness of breath, CARDIAC: denies chest pain, palpitations, orthopnea, PND GASTROINTESTINAL: denies abdominal pain, nausea, GENITOURINARY: denies dysuria, urgency, frequency, EXTREMITY: denies swelling MUSCULOSKELETAL: denies current joint pain or tenderness NEUROLOGIC: denies focal numbness, weakness, tingling HEMATOLOGIC: denies easy bruising and/or hemorrhage INTEGUMENT: denies rashes PSYCHIATRIC: denies suicidal or homicidal ideation Vital Signs Vital Signs Vital Signs: 11/22/21 08:06 11/22/21 08:09 11/22/21 08:09 Temperature 97.2 F L 97.2 F L Temperature Source Oral Oral Pulse Rate 87 87 Respiratory Rate 19 H 19 H Respiratory Effort Respiratory Depth Respiratory Pattern Blood Pressure 186/70 H 186/70 H Blood Pressure Mean 108 108 Pulse Ox 78 78 98 Oxygen Delivery Method Room Air Room Air Nasal Cannula Oxygen Flow Rate (L/min) 4 11/22/21 08:09 11/22/21 08:49 Temperature Temperature Source Pulse Rate 86 Respiratory Rate 36 H Respiratory Effort Short of Breath Respiratory Depth Shallow Respiratory Pattern Tachypnea Blood Pressure 163/73 H Blood Pressure Mean 103 Pulse Ox 95 Oxygen Delivery Method Nasal Cannula Nasal Cannula Oxygen Flow Rate (L/min) 4 Weight Weight: 98.2 kg Body Mass Index (BMI) 42.3 Physical Exam Narrative GENERAL: Patient appears frail looking HEENT: Atraumatic; normocephalic EYES; Anicteric, Normal Conjunctiva NECK; supple, normal thyroid, RESPIRATORY: Diminished to auscultation with bibasilar crackles CARDIOVASCULAR: Regular S1 S2, GI: soft, normoactive bowel sounds,, PEG tube in place : No Renal angle tenderness; EXTREMITIES: Bipedal edema edema, no clubbing, MUSCULOSKELETAL: no muscle wasting NEURO: Awake; no lateralizing signs. SKIN: No Rash PSYCH; Flat affect Results Lab / Micro Data Result Diagrams: 11/22/21 08:15 11/22/21 08:15 Labs: Laboratory Results - last 24 hr 11/22/21 08:15: WBC 20.0 H, RBC 4.48, Hgb 11.0 L, Hct 37.2, MCV 83.0, MCH 24.6 L, MCHC 29.6 L, RDW Std Deviation 50.1 H, RDW Coeff of Carissa 16.6 H, Plt Count 294, MPV 9.9, Immature Gran % (Auto) 0.500, Neut % (Auto) 81.4 H, Lymph % (Auto) 10.2 L, [place] % (Auto) 6.7, Eos % (Auto) 1.0, Baso % (Auto) 0.2, Absolute Neuts (auto) 16.3 H, Absolute Lymphs (auto) 2.05, Nucleated RBC % 0 11/22/21 08:15: Sodium 141, Potassium 3.5, Chloride 103, Carbon Dioxide 32.0, Anion Gap 6, BUN 11, Creatinine 0.75, Estim Creat Clear Calc 33.84, Est GFR (MDRD) Af Amer 96, Est GFR (MDRD) Non-Af 79, BUN/Creatinine Ratio 14.6, Glucose 159 H, Calcium 8.8, Total Bilirubin 0.40, Direct Bilirubin 0.13, AST 10 L, ALT 14, Alkaline Phosphatase 106, Troponin I High Sens 43, Total Protein 6.4, Albumin 2.3 L, Globulin 4.1 11/22/21 08:15: Lactic Acid 0.7 11/22/21 08:15: B-Natriuretic Peptide 273.8 H Radiology Impression Chest X-Ray 11/22/21 08:16 IMPRESSION: Findings suggestive of bibasilar atelectasis more prominent on the left side superimposed on basilar scarring. This has progressed as compared to prior study. Electronically Signed: Milo Hughes MD at 8:56 EDT , Assessment & Plan Assessment/Plan (1) Pneumonia: (2) Congestive heart failure (CHF): PLAN: Plan Patient is a 76-year-old lady with multiple comorbidities resident at an extended care facility brought in with progressive shortness of breath. An assessment of acute hypoxia secondary to combination of CHF and pneumonia with suspected MDR's made admitted to a monitored bed for further management 1. Acute hypoxia ? Secondary to combination of CHF and pneumonia. Patient oxygen saturation at the ECF prior to her admission was in the mid 70s placed on supplemental oxygen back to the 90s 2. Acute on chronic congestive heart failure with preserved ejection fraction ? Patient echo on record obtained on 02/06/2021 demonstrated ejection fraction of 65%. Patient has been admitted to a monitored bed managed with diuretics, strict input and output, daily weight as well as fluid restriction. Patient was also placed on supplemental oxygen repeat echo ordered 3. Pneumonia with suspected MDR's ? Patient was started on aztreonam as well as doxycycline did send for cultures including blood and sputum as well as viral respiratory panel and COVID 19 assay 4. Multiple sclerosis with significant debility ? Supportive care 5. Dysphagia ? Status post PEG tube placement consult placed to dietitian/aerospace project engineer to recommend tube feed 6. Paroxysmal A. fib ? Rate controlled on amiodarone. Patient is on systemic anticoagulation with apixaban did continue 7. Previous history of DVT ? Patient is on systemic anticoagulation with apixaban 8. Essential hypertension ? Patient blood pressure control not optimal, patient is on hydralazine as well as amlodipine did continue with plans to adjust doses if needed 9. Dyslipidemia ? Patient is on atorvastatin did continue 10. Coronary artery disease ? With previous PCI on 08/29/2012. 11. Obstructive sleep apnea ? CPAP at night 12. Physical deconditioning - Requested for PT OT eval and social media marketing analyst to assist with discharge planning 13. Hypokalemia ? Corrected per protocol subsequent monitoring with daily BMPs ordered 14. DVT prophylaxis ? Patient is on apixaban 16. Class III obesity with BMI of 42.3 ? Complicating care Advance planning; did discuss with the patient regarding advanced directives as well as CODE STATUS. Did explain the various scenarios involved ( FULL CODE, DNR CCA, DNR CCA with no intubation, and DNR CC and what each meant) patient elected to be DNR CCA no intubation. This was also supported by documentation from patient ECF. Order was placed. Time spent on discussion 18 minutes. Charges/Coding Visit Charges Inpatient E&M: 98590 Init Hosp L3 Procedures Hospitalists Procedures: 11694 Advncd Care Plan 30 Min
[2021-11-22 10:25] LABS: Reflex Troponin-HS? (from REC) Y
--- NOTE | 2021-11-22 10:39 | CASEMGMT ---
Patient has a Healthcare Power of [employer] on file at [facility]. Patient's Healthcare Power of [employer] is her son Farhat and daughter in law Best. Patient does not have a Healthcare Living Will. Mariaa COSTELLO
--- NOTE | 2021-11-22 11:04 | ECHOCS_ITS ---
Reason For Study: CHF Procedure This was a 2D Doppler, Color Flow transthoracic echocardiogram. The study was technically difficult. Contrast injection was performed. Exam performed portable in patient room. Left Ventricle Normal LV size. Moderate concentric left ventricular hypertrophy. Left ventricular systolic function is normal. The estimated ejection fraction is 70 %. Stage 2 diastolic dysfunction. No regional wall motion abnormalities noted. Right Ventricle Normal RV size. Normal systolic function. Atria The left atrium is moderately enlarged. Normal right atrium. No doppler evidence for ASD. Mitral Valve There is moderate to severe mitral annular calcification. Extension of the mitral annular calcification onto the base of the posterior mitral valve leaflet. Trivial mitral valve insufficiency. Tricuspid Valve Normal tricuspid valve. Mild tricuspid valve insufficiency. Unable to estimate RV systolic pressure/pulmonary artery pressure due to technically difficult study. Aortic Valve Trisinus/trileaflet aortic valve. Mild focal aortic valve calcification. Pulmonic Valve The pulmonic valve is not well visualized. Great Vessels Normal sized aortic root. Pericardium/Pleural No pericardial effusion. Medication Diluted definity 2ml given slow IV push to enhance endocardial definition. MMode/2D Measurements & Calculations LVIDd: 4.2 cm IVSd: 1.4 cm Ao root diam: 3.5 cm LVIDs: 3.3 cm LVPWd: 1.4 cm LA dimension: 5.0 cm FS: 22.3 % LAV(MOD-bp): 79.6 ml LA A4 area: 23.7 cm2 LAV(MOD-bp) Indexed: 41.3 ml/m2 LAV(MOD-sp2): 86.4 ml LAV(MOD-sp4): 71.6 ml Time Measurements MV dec time: 0.18 sec Doppler Measurements & Calculations MV E max landon: 97.8 cm/sec Lat Peak E' Landon: 4.0 cm/sec Med Peak E' Landon: 3.7 cm/sec MV A max landon: 93.7 cm/sec E/E' lat: 24.6 E/E' med: 26.1 MV E/A: 1.0 MV V2 max: 94.9 cm/sec MV P1/2t max landon: 83.7 cm/sec Ao V2 max: 142.2 cm/sec MV max P.6 mmHg MV P1/2t: 48.7 msec Ao max P.1 mmHg MV V2 mean: 54.0 cm/sec MV dec slope: 503.1 cm/sec2 Ao V2 mean: 94.1 cm/sec MV mean P.4 mmHg Ao mean P.1 mmHg MV V2 VTI: 22.5 cm MVA(P1/2t): 4.5 cm2 Ao V2 VTI: 27.4 cm LV V1 max: 129.9 cm/sec PA V2 max: 103.8 cm/sec LV V1 max P.8 mmHg LV V1 mean P.2 mmHg LV V1 mean: 82.7 cm/sec LV V1 VTI: 24.7 cm ECHO/Echo Complete W/ Contrast Interpretation Summary The study was technically difficult. Contrast injection was performed. Left ventricular systolic function is normal. The estimated ejection fraction is 70 %. Moderate concentric left ventricular hypertrophy. The left atrium is moderately enlarged. There is moderate to severe mitral annular calcification. Extension of the mitral annular calcification onto the base of the posterior mi tral valve leaflet. Trivial mitral valve insufficiency. Mild tricuspid valve insufficiency. Mild focal aortic valve calcification. Unable to estimate RV systolic pressure/pulmonary artery pressure due to techni craig difficult study. Stage 2 diastolic dysfunction. Ordering Physician: Fabrice Gilliam Referring Physician: Uriel Mac Performed By: Amos Barker RCS
[2021-11-22 11:10] LABS: Troponin-I HS 43 pg/mL (3.0-54.0)
--- NOTE | 2021-11-22 11:46 | CASEMGMT ---
Upon review of patient's chart patient is from [facility]. SW sent updates to [facility] via [employer]. 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 SW will also check in with patient. Mariaa Mckinney IRONWORKER APPRENTICE SHOP PRAVIN
[2021-11-22] MEDS: amLODIPine 5 MG Tablet GT (12:47)
[2021-11-22] MEDS: Amiodarone 200 MG Tablet 100 MG GT (12:47)
[2021-11-22] MEDS: APIXABAN 5 MG TABLET GT ×2 (12:48→21:51)
[2021-11-22] MEDS: Polyethylene Glycol 3350 17 GM PACKET GT (12:48)
[2021-11-22] MEDS: carBAMazepine 200 MG/10 ML UDC GT ×2 (12:49→21:50)
[2021-11-22] MEDS: hydrALAZINE 50 MG Tablet GT ×2 (12:50→21:54)
[2021-11-22] MEDS: Gabapentin 300 MG Capsule GT ×2 (12:58→21:51)
--- NOTE | 2021-11-22 13:06 | WOUNDNOTE ---
skin photo: left lower leg
[2021-11-22] MEDS: FLU VACC QS2022-23(6MOS UP)/PF 60 MCG/0.5 ML SYRINGE IM (13:17)
[2021-11-22] MEDS: Ipratropium/Albuterol Sulfate 3 ML AMPUL.NEB INHALATION ×2 (13:34→19:39)
[2021-11-22] MEDS: Furosemide 40 MG/4 ML Vial IV ×2 (15:05→21:50)
[2021-11-22] MEDS: 0.9% Saline Lock 10 ML Syringe IV (15:06)
[2021-11-22] MEDS: Menthol/Lanolin/Calamine/Znox 113 GM Tube 1 APPLIC TOPICAL ×2 (15:07→21:52)
[2021-11-22] MEDS: Jevity 1.5. 1,000 ML Bottle 240 ML GT ×3 (15:07→21:51)
[2021-11-22 15:20] LABS: Troponin-I HS 45 pg/mL (3.0-54.0)
--- NOTE | 2021-11-22 15:26 | CHAPLAIN ---
Type of Pastoral Visit _x__ Initial Visit ___ Follow-up Visit ___ On-call Visit ___ General Patient Visit ___ Spiritual Assessment ___ Family Conference ___ Bereavement ___ Rapid Response ___ Code Blue ___ Other (describe below) Pastoral Care Referral From _x__ Patient ___ Family ___ Nurse ___ Physician ___ Threading Machine Tender ___ Cad Drafter ___ Other (describe below) Sacrament/Intervention _x__ Active listening ___ Anointing ___ Gnosticist ___ Bereavement ___ Communion ___ Aminah exploration ___ ___ Life review _x__ Prayer ___ Reconciliation ___ Sacrament of Sick ___ Supportive presence ___ Wedding ___ Other (describe below) Pastoral Comments patient has been seen many times by this drapery counselor in many previous visits to the hospital; pt remembers this drapery counselor; pt is coughing so the visit is kept brief; pt states she has something to give to this drapery counselor from her dresser drawer; pt is mistaken about this and it may be due to some uncertainty about her whereabouts; prayer is given for patient
[2021-11-22] MEDS: Acetaminophen 325 MG Tablet 650 MG PO (17:13)
[2021-11-22 18:20] LABS: M R Staph aureus DNA By PCR Negative (Negative); Probe Check PASS; Specimen Processing Control PASS
[2021-11-22] MEDS: Atorvastatin Calcium 20 MG Tablet GT (21:51)
[2021-11-23] VITALS (26 sets, daily range): BP systolic 130–167; BP diastolic 50–82; PULSE 76–97; RESP 16–36; TEMP 36.7–37.8; O2SAT 74–97
[2021-11-23] MEDS: Ipratropium/Albuterol Sulfate 3 ML AMPUL.NEB INHALATION ×4 (01:42→19:17)
[2021-11-23] MEDS: Furosemide 40 MG/4 ML Vial IV ×3 (05:13→21:16)
[2021-11-23] MEDS: hydrALAZINE 50 MG Tablet GT ×3 (05:13→21:14)
[2021-11-23] MEDS: Menthol/Lanolin/Calamine/Znox 113 GM Tube 1 APPLIC TOPICAL ×3 (05:13→23:33)
[2021-11-23 06:57] LABS: Absolute Lymphocyte Count 2.42 X10^3/uL (0.83-4.51); Absolute Neutrophil Count 16.5 X10^3/uL (2.0-7.7); Basophil# 0.05 X10^3/uL; Basophil% 0.2 % (0-1); Eosinophil# 0.26 X10^3/uL; Eosinophils% 1.2 % (0-5); Hematocrit 35.7 % (37-47); Hemoglobin 10.4 g/dL (12.0-15.0); Lymphocyte # 2.42 X10^3/ul (0.83-4.51); Lymphocyte % 11.6 % (19-41); Mean Corp Hgb Conc 29.1 g/dL (32-36); Mean Corpuscular Hgb 23.7 pg (27.0-32.0); Mean Corpuscular Volume 81.5 fL (81-99); Mean Platelet Vol. 10.3 fl (6.2-12.0); Monocyte# 1.48 X10^3/uL; Monocyte% 7.1 % (0-10); NRBC Flagged by Analyzer 0 % (0-5); Neutrophil # 16.45 X10^3/uL (2.7-7.7); Neutrophil % 79.1 % (47-70); Platelet Count 312 K/mm3 (150-450); RBC Distribution Width CV 16.6 % (11.6-14.6); RBC Distribution Width SD 48.9 fl (35.1-43.9); Red Blood Count 4.38 M/mm3 (4.2-5.4); White Blood Count 20.8 K/mm3 (4.4-11.0)
[2021-11-23 07:25] LABS: Anion Gap 8 (5-15); BUN 18 mg/dL (7-18); BUN/Creat Ratio 19.6 RATIO (10-20); Chloride 100 mmol/L (98-107); Creatinine, Serum 0.92 mg/dL (0.55-1.02); EST Glomerular Filtration Rate 63 mL/min (>60); Est Glom Filt Rate - Afr Amer 76 mL/min (>60); Estimated Creatinine Clearance 36.78 ml/min; Glucose 155 mg/dL (74-106); Magnesium 1.7 mg/dL (1.6-2.6); Phosphorus 3.2 mg/dL (2.5-4.9); Potassium 3.1 mmol/L (3.5-5.1); Sodium Level 140 mmol/L (136-145)
[2021-11-23 08:51] LABS: CPK Total, Creatine Kinase 80 U/L (26-192)
[2021-11-23] MEDS: Amiodarone 200 MG Tablet 100 MG GT (10:05)
[2021-11-23] MEDS: amLODIPine 5 MG Tablet GT (10:07)
[2021-11-23] MEDS: APIXABAN 5 MG TABLET GT ×2 (10:08→21:16)
[2021-11-23] MEDS: Gabapentin 300 MG Capsule GT ×2 (10:08→22:10)
[2021-11-23] MEDS: Polyethylene Glycol 3350 17 GM PACKET GT (10:08)
[2021-11-23] MEDS: Potassium Chloride Oral Tablet 20 MEQ 60 MEQ PO (10:08)
[2021-11-23] MEDS: carBAMazepine 200 MG/10 ML UDC GT ×2 (10:09→21:15)
[2021-11-23] MEDS: 0.9% Saline Lock 10 ML Syringe IV (11:04)
[2021-11-23] MEDS: Jevity 1.5. 1,000 ML Bottle 240 ML GT (11:10)
--- NOTE | 2021-11-23 11:33 | CASEMGMT ---
JAGDEEP sent an update to Quiana via [employer]. Mariaa Mckinney MATHEMATICIAN RESEARCH MATHEMATICIAN RESEARCH
[2021-11-23] MEDS: Jevity 1.5. 1,000 ML Bottle 250 ML GT ×3 (14:12→21:17)
--- NOTE | 2021-11-23 16:06 | PN.HOSP_ITS ---
Subjective Subjective Per discussion with nursing staff her mental status has improved however her respiratory status worsened overnight she was placed on air Vo at 40 L/min and an FiO2 of 40%. She remains on that at this time in my evaluation was sleepy however per discussion with nursing was more interactive prior to this while she was getting her bath. It was also conveyed that her sister not that long ago and there is evidently been a decline in her status since that time with concerns of failure to thrive. Objective Data Objective Data Vital Signs: Vital Signs Temp Pulse Resp BP Pulse Ox O2 Del Method O2 Flow Rate 99.8 F H 97 32 H 131/55 H 94 Airvo 40 11/23/21 15:04 11/23/21 15:04 11/23/21 15:04 11/23/21 15:04 11/23/21 15:04 11/23/21 15:04 11/23/21 15:04 FiO2 40 11/23/21 15:04 Oxygen Flow Rate (L/min) 40 Oxygen Delivery Method Airvo Weight: 94.9 kg Body Mass Index (BMI) 40.1 Intake & Output: Intake and Output for Last 24 Hours 11/21/21 11/22/21 11/23/21 23:59 23:59 23:59 Intake Total 1140.5 / 1140.5 311 / 311 Output Total 900 / 900 900 / 900 Balance 240.5 / 240.5 -589 / -589 Lab / Micro Data Result Diagrams: 11/23/21 06:20 11/23/21 06:20 Labs: Laboratory Results - last 24 hr 11/22/21 13:20: MRSA (PCR) Negative 11/23/21 06:20: WBC 20.8 H, RBC 4.38, Hgb 10.4 L, Hct 35.7 L, MCV 81.5, MCH 23.7 L, MCHC 29.1 L, RDW Std Deviation 48.9 H, RDW Coeff of Carissa 16.6 H, Plt Count 312, MPV 10.3, Immature Gran % (Auto) 0.800, Neut % (Auto) 79.1 H, Lymph % (Auto) 11.6 L, Henry % (Auto) 7.1, Eos % (Auto) 1.2, Baso % (Auto) 0.2, Absolute Neuts (auto) 16.5 H, Absolute Lymphs (auto) 2.42, Nucleated RBC % 0 11/23/21 06:20: Sodium 140, Potassium 3.1 L, Chloride 100, Carbon Dioxide 32.0, Anion Gap 8, BUN 18, Creatinine 0.92, Estim Creat Clear Calc 36.78, Est GFR (MDRD) Af Amer 76, Est GFR (MDRD) Non-Af 63, BUN/Creatinine Ratio 19.6, Glucose 155 H, Calcium 9.0, Phosphorus 3.2, Magnesium 1.7 11/23/21 06:20: Total Creatine Kinase 80 Micro: Microbiology 11/22/21 15:10 Urine, Clean Catch Legionella Antigen - Final 11/22/21 15:10 Urine, Clean Catch Streptococcus pneumoniae Antigen (M - Final 11/22/21 11:55 Mucosa - Nasopharyngeal Respiratory Panel (PCR) - Final Radiography Diagnostic Testing: Radiology Impression Echocardiogram 11/22/21 11:04 Interpretation Summary The study was technically difficult. Contrast injection was performed. Left ventricular systolic function is normal. The estimated ejection fraction is 70 %. Moderate concentric left ventricular hypertrophy. The left atrium is moderately enlarged. There is moderate to severe mitral annular calcification. Extension of the mitral annular calcification onto the base of the posterior mitral valve leaflet. Trivial mitral valve insufficiency. Mild tricuspid valve insufficiency. Mild focal aortic valve calcification. Unable to estimate RV systolic pressure/pulmonary artery pressure due to technically difficult study. Stage 2 diastolic dysfunction. 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, patient appears comfortable and responds to noxious stimulus appropriately HEENT head/scalp atraumatic and moist oral mucous membranes Head and Scalp: normocephalic Resp no retractions and no use of accessory muscles Resp Narrative: Breath sounds are diminished diffusely however body habitus limits exam, patient is tachypneic with no signs of extremis at this time Auscultation: Negative for crackles, rhonchi or wheezes Cardio regular rate, regular rhythm, S1 normal heart sound, S2 normal heart sound, no murmurs, no rub, no gallops and no clicks Cardio Narrative: Distant cardiac tones secondary to body habitus GI normal to inspection, nondistended, normoactive bowel sounds, soft to palpation and non-tender GI Narrative: Large protuberant abdomen, PEG in place and appears clean and dry Extremity Extremity Narrative: Bilateral lower extremity chronic venous stasis noted with 1+ pitting edema, no cyanosis or clubbing, onychomycosis noted Neuro Neuro Narrative: Spontaneously moves all extremities with marked generalized weakness noted lower extremity greater than upper and proximal greater than distal Psych Psych Narrative: Exam is limited secondary to patient's mental status and the fact that she is sleeping Assessment & Plan Assessment/Plan (1) Acute respiratory failure with hypoxia: (2) Toxic metabolic encephalopathy: (3) Leukocytosis: (4) Hypokalemia: PLAN: Plan Acute hypoxic respiratory failure--> possibly multifactorial -Exact etiology is unclear at this time -Currently on Airvo at 40 L/min and 40% FiO2 -Wean as able -BNP was elevated however much less elevated than previous assessments -Chest x-ray does not show infiltrate -COVID and flu negative -Respiratory viral panel negative -Unable to collect sputum culture as patient has not produced -MRSA PCR is negative however with patient residing at a nursing facility we will go ahead and cover for MRSA at this time -Start daptomycin and discontinue doxycycline -Continue aztreonam -Continue diuresis with Lasix -Blood cultures are pending -Echocardiogram was done on 11/22/2021 and demonstrated an EF of 70% with moderate concentric LVH, moderate left atrial enlargement, moderate to severe mitral annular calcification and stage II diastolic dysfunction -Check UA and urine culture as patient has history of recurrent urinary tract infections Leukocytosis -Continue antibiotics as above -Continue to monitor -Await cultures Failure to thrive -Per discussion with staff it was reported to them that she is somewhat given up since her sister recently at the nursing facility -Continue current therapy but may need further input from family with regards to goals of care Toxic/metabolic encephalopathy -Anticipate related to 1 -Continue to monitor -Per discussion with staff seems to be improving some Hypokalemia -60 mill equivalents p.o. potassium given -Repeat in a.m. PAF -Patient is on NC coagulation with apixaban -Continue amiodarone -Currently appears to be in normal sinus rhythm History of DVT -Continue systemic anticoagulation with apixaban Hypertension -Continue home hydralazine amlodipine -Continue as needed medications and adjust as needed Hyperlipidemia -Continue atorvastatin Dysphagia -Continue speech therapy -We will need MBS when patient is more alert History of CAD -PCI on 08/29/2012 -Continue home therapy LAURITA -Continue nocturnal CPAP HFpEF -Repeat echocardiogram appears stable -Continue diuresis as noted above -BNP was only mildly elevated when compared to recently assessed numbers Debility -PT/OT consultation -Speech therapy consultation Obesity -BMI 40.9 -Recommend weight loss -Complicates treatment, prognosis, outcomes Depression -Continue home duloxetine DVT prophylaxis -Continue apixaban as ordered CODE STATUS From full code Charges/Coding Visit Charges Inpatient E&M: 60737 [facility] Hosp L3
[2021-11-23] MEDS: Acetaminophen 325 MG Tablet 650 MG PO (16:49)
[2021-11-23 20:27] LABS: Mucous, Urine 0 SEEN /hpf (<or=2+); Red Blood Cells-Urine 0 SEEN /hpf (0-5); Squamous Epithelial Cells - UA 0 SEEN /hpf (5-10); White Blood Cells 0 SEEN /hpf (0-5)
[2021-11-23 20:38] LABS: Color, Urine Yellow (Yellow); Glucose, Dipstick Normal (Normal); Ketone-Dipstick Negative (Negative); Leukocyte Esterase-Dipstick Negative /ul (Negative); Nitrite-Dipstick Negative (Negative); Occult Blood-Urine Negative /ul (Negative); Protein-Dipstick 30 mg/dl (Negative); Specific Gravity, Urine 1.015 (1.002-1.030); Urine Bilirubin Dipstick Negative (Negative); Urine Clarity Clear (Clear); Urine Urobilinogen Normal (Normal)
[2021-11-23] MEDS: Atorvastatin Calcium 20 MG Tablet GT (21:14)
[2021-11-23 21:22] LABS: Bacteria RARE /hpf (None Seen); Transitional Epithelial - Ur 0-5 SEEN /hpf (0-5)
[2021-11-23 21:23] LABS: Calcium Oxalate Crystals Ur 3+ /hpf (<or=2+)
[2021-11-24] VITALS (21 sets, daily range): BP systolic 115–144; BP diastolic 39–108; PULSE 78–91; RESP 16–32; TEMP 36.2–37.2; O2SAT 94–100
[2021-11-24] MEDS: Ipratropium/Albuterol Sulfate 3 ML AMPUL.NEB INHALATION ×4 (02:02→19:00)
[2021-11-24] MEDS: hydrALAZINE 50 MG Tablet GT ×3 (05:03→21:58)
[2021-11-24] MEDS: Menthol/Lanolin/Calamine/Znox 113 GM Tube 1 APPLIC TOPICAL ×3 (05:07→22:01)
[2021-11-24] MEDS: Furosemide 40 MG/4 ML Vial IV ×3 (05:08→21:58)
[2021-11-24 05:54] LABS: Absolute Lymphocyte Count 1.83 X10^3/uL (0.83-4.51); Basophil# 0.04 X10^3/uL; Basophil% 0.3 % (0-1); Eosinophil# 0.39 X10^3/uL; Eosinophils% 2.9 % (0-5); Hematocrit 35.6 % (37-47); Hemoglobin 10.3 g/dL (12.0-15.0); Lymphocyte # 1.83 X10^3/ul (0.83-4.51); Lymphocyte % 13.5 % (19-41); Mean Corp Hgb Conc 28.9 g/dL (32-36); Mean Corpuscular Hgb 23.8 pg (27.0-32.0); Mean Corpuscular Volume 82.4 fL (81-99); Monocyte# 1.18 X10^3/uL; Monocyte% 8.7 % (0-10); NRBC Flagged by Analyzer 0 % (0-5); Neutrophil % 74.1 % (47-70); Platelet Count 269 K/mm3 (150-450); RBC Distribution Width CV 16.6 % (11.6-14.6); RBC Distribution Width SD 49.3 fl (35.1-43.9); Red Blood Count 4.32 M/mm3 (4.2-5.4); White Blood Count 13.5 K/mm3 (4.4-11.0)
[2021-11-24 07:00] LABS: Anion Gap 6 (5-15); BUN 22 mg/dL (7-18); BUN/Creat Ratio 24.1 RATIO (10-20); Calcium,Total 9.1 mg/dL (8.5-10.1); Chloride 101 mmol/L (98-107); Creatinine, Serum 0.91 mg/dL (0.55-1.02); EST Glomerular Filtration Rate 63 mL/min (>60); Est Glom Filt Rate - Afr Amer 77 mL/min (>60); Estimated Creatinine Clearance 37.19 ml/min; Glucose 165 mg/dL (74-106); Magnesium 1.9 mg/dL (1.6-2.6); Potassium 3.3 mmol/L (3.5-5.1); Sodium Level 142 mmol/L (136-145); Thyroid Stim Hormone (TSH) 0.59 uIU/mL (0.358-3.74)
--- NOTE | 2021-11-24 09:34 | CASEMGMT ---
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 Her son and daughter in law are her Healthcare Anaya of [employer] Making Machinist. Mariaa Mckinney MSW PRAVIN
[2021-11-24] MEDS: Potassium Chloride Oral Soln 20 MEQ/15 ML UDC 60 MEQ GT (09:52)
[2021-11-24] MEDS: Polyethylene Glycol 3350 17 GM PACKET GT (09:52)
[2021-11-24] MEDS: amLODIPine 5 MG Tablet GT (09:53)
[2021-11-24] MEDS: APIXABAN 5 MG TABLET GT ×2 (09:53→22:01)
[2021-11-24] MEDS: Amiodarone 200 MG Tablet 100 MG GT (09:53)
[2021-11-24] MEDS: Jevity 1.5. 1,000 ML Bottle 250 ML GT ×4 (09:53→22:01)
[2021-11-24] MEDS: carBAMazepine 200 MG/10 ML UDC GT ×2 (10:13→21:58)
[2021-11-24] MEDS: Gabapentin 300 MG Capsule GT ×2 (10:55→22:01)
[2021-11-24] MEDS: 0.9% Saline Lock 10 ML Syringe IV (13:44)
--- NOTE | 2021-11-24 14:05 | PCM.PN.HOSP ---
Subjective Subjective Mental status and oxygenation have improved dramatically. Patient is now alert and oriented to place and self. Still confused on time. Has been weaned from Airvo at 40 L/min and 40% FiO2 to nasal cannula at 3 to 4 L. Much more awake and participatory with speech therapy. Speech therapy is planning for [facility] tomorrow. Objective Data Objective Data Vital Signs: Vital Signs Temp Pulse Resp BP Pulse Ox O2 Del Method O2 Flow Rate 97.1 F L 91 18 120/108 H 94 Nasal Cannula 3 11/24/21 10:54 11/24/21 13:40 11/24/21 10:54 11/24/21 13:40 11/24/21 13:54 11/24/21 13:54 11/24/21 13:54 FiO2 40 11/24/21 05:17 Oxygen Flow Rate (L/min) 3 Oxygen Delivery Method Nasal Cannula Weight: 94.5 kg Body Mass Index (BMI) 40.1 Intake & Output: Intake and Output for Last 24 Hours 11/22/21 11/23/21 11/24/21 23:59 23:59 23:59 Intake Total 1140.5 / 1140.5 911 / 911 828.5 / 828.5 Output Total 900 / 900 1650 / 1650 200 / 200 Balance 240.5 / 240.5 -739 / -739 628.5 / 628.5 Lab / Micro Data Result Diagrams: 11/24/21 04:50 11/24/21 04:50 Labs: Laboratory Results - last 24 hr 11/23/21 19:58: Urine Color Yellow, Urine Clarity Clear, Urine pH 5.0, Ur Specific Margaret 1.015, Urine Protein 30 H, Urine Glucose (UA) Normal, Urine Ketones Negative, Urine Occult Blood Negative, Urine Nitrite Negative, Urine Bilirubin Negative, Urine Urobilinogen Normal, Ur Leukocyte Esterase Negative, Urine RBC 0 SEEN, Urine WBC 0 SEEN, Ur Squamous Epith Cells 0 SEEN, Ur Transition Epith Cell 0-5 SEEN, Calcium Oxalate Crystal 3+, Urine Bacteria RARE, Urine Mucus 0 SEEN 11/24/21 04:50: WBC 13.5 H, RBC 4.32, Hgb 10.3 L, Hct 35.6 L, MCV 82.4, MCH 23.8 L, MCHC 28.9 L, RDW Std Deviation 49.3 H, RDW Coeff of Carissa 16.6 H, Plt Count 269, MPV 11.0, Immature Gran % (Auto) 0.500, Neut % (Auto) 74.1 H, Lymph % (Auto) 13.5 L, [place] % (Auto) 8.7, Eos % (Auto) 2.9, Baso % (Auto) 0.3, Absolute Neuts (auto) 10.0 H, Absolute Lymphs (auto) 1.83, Nucleated RBC % 0 11/24/21 04:50: Sodium 142, Potassium 3.3 L, Chloride 101, Carbon Dioxide 35.0 H, Anion Gap 6, BUN 22 H, Creatinine 0.91, Estim Creat Clear Calc 37.19, Est GFR (MDRD) Af Amer 77, Est GFR (MDRD) Non-Af 63, BUN/Creatinine Ratio 24.1 H, Glucose 165 H, Calcium 9.1, Magnesium 1.9, TSH 0.59 Micro: Microbiology 11/23/21 19:58 Interface Orders Gram Stain - Final 11/22/21 10:23 Blood Culture (Wb) - Left Wrist Blood Culture - Preliminary No growth in 48 hours. 11/22/21 08:15 Blood Culture (Wb) - Right Hand Blood Culture - Preliminary No growth in 48 hours. 11/22/21 15:10 Urine, Clean Catch Legionella Antigen - Final 11/22/21 15:10 Urine, Clean Catch Streptococcus pneumoniae Antigen (M - Final 11/22/21 11:55 Mucosa - Nasopharyngeal Respiratory Panel (PCR) - Final Physical Exam Const no apparent distress Constitutional Narrative: Elderly white female sitting up in bed drinking a glass of water with speech therapy at the bedside, morbidly obese, patient appears comfortable and interacts appropriately HEENT head/scalp atraumatic and moist oral mucous membranes Head and Scalp: normocephalic Resp normal respiratory effort, no retractions and no use of accessory muscles Resp Narrative: Usually diminished but clear Auscultation: Negative for crackles, rhonchi or wheezes Cardio regular rate, regular rhythm, S1 normal heart sound, S2 normal heart sound, no murmurs, no rub, no gallops and no clicks Cardio Narrative: Distant cardiac tones secondary to body habitus GI normal to inspection, nondistended, normoactive bowel sounds, soft to palpation and non-tender GI Narrative: Large protuberant abdomen, PEG in place and appears clean and dry Extremity Extremity Narrative: Bilateral lower extremity chronic venous stasis noted with 1+ pitting edema, no cyanosis or clubbing, onychomycosis noted Neuro moves all extremities and no focal motor deficits Neuro Narrative: Oriented x2-self and place Speech: speech normal Psych affect normal Psych Narrative: Appropriately interactive with mild confusion Assessment & Plan Assessment/Plan (1) Acute respiratory failure with hypoxia: (2) Toxic metabolic encephalopathy: (3) Leukocytosis: (4) Hypokalemia: PLAN: Plan Acute hypoxic respiratory failure--> possibly multifactorial -Exact etiology is unclear at this time -Patient has been able to be weaned to nasal cannula at 3 to 4 L with oxygen saturations greater than 92% -BNP was elevated however much less elevated than previous assessments -Chest x-ray does not show infiltrate -COVID and flu negative -Respiratory viral panel negative -MRSA PCR is negative however with patient residing at a nursing facility we will go ahead and cover for MRSA at this time -Continue daptomycin for now but will likely discontinue if cultures do not show MRSA within the next 24 hours -Continue aztreonam -Continue diuresis but will likely decrease Lasix within the next 24 hours as BUN is starting to rise -Serum creatinine stable -Blood cultures with no growth at 48 hours -Urine cultures pending -Echocardiogram was done on 11/22/2021 and demonstrated an EF of 70% with moderate concentric LVH, moderate left atrial enlargement, moderate to severe mitral annular calcification and stage II diastolic dysfunction Leukocytosis -Continue antibiotics as above -White count is trending down -Await cultures Failure to thrive -Patient much more appropriate today and seems more motivated -Continue PT/OT/speech therapy Toxic/metabolic encephalopathy -Anticipate related to 1 -Resolving -Patient much more alert and interactive today Hypokalemia - 40 mill equivalents of potassium given via PEG -Potassium is trending up -Repeat in a.m. PAF -Patient is on coagulation with apixaban -Continue amiodarone -Currently appears to be in normal sinus rhythm History of DVT -Continue systemic anticoagulation with apixaban Hypertension -Continue home hydralazine and amlodipine -Continue as needed medications and adjust as needed Hyperlipidemia -Continue atorvastatin Dysphagia -Continue speech therapy -MBS is planned for tomorrow History of CAD -PCI on 08/29/2012 -Continue home therapy LAURITA -Continue nocturnal CPAP HFpEF -Repeat echocardiogram appears stable -Continue diuresis as noted above--> we will likely start decreasing diuresis with the next 24 hours -BNP was only mildly elevated when compared to recently assessed numbers Debility -PT/OT consultation -Speech therapy consultation Obesity -BMI 40.9 -Recommend weight loss -Complicates treatment, prognosis, outcomes Depression -Continue home duloxetine DVT prophylaxis -Continue apixaban as ordered CODE STATUS -Full code Charges/Coding Visit Charges Inpatient E&M: 58275 [facility] Hosp L2
[2021-11-24] MEDS: Atorvastatin Calcium 20 MG Tablet GT (22:01)
[2021-11-25] VITALS (13 sets, daily range): BP systolic 100–130; BP diastolic 64–82; PULSE 76–86; RESP 18–28; TEMP 36.8–37.2; O2SAT 89–98
[2021-11-25] MEDS: Ipratropium/Albuterol Sulfate 3 ML AMPUL.NEB INHALATION ×3 (01:35→13:16)
[2021-11-25] MEDS: Furosemide 40 MG/4 ML Vial IV (05:05)
[2021-11-25] MEDS: hydrALAZINE 50 MG Tablet GT (05:08)
[2021-11-25] MEDS: Menthol/Lanolin/Calamine/Znox 113 GM Tube 1 APPLIC TOPICAL ×2 (05:22→13:40)
[2021-11-25 06:03] LABS: Absolute Lymphocyte Count 2.34 X10^3/uL (0.83-4.51); Absolute Neutrophil Count 9.8 X10^3/uL (2.0-7.7); Basophil# 0.05 X10^3/uL; Basophil% 0.4 % (0-1); Eosinophil# 0.35 X10^3/uL; Eosinophils% 2.6 % (0-5); Hematocrit 35.2 % (37-47); Hemoglobin 10.3 g/dL (12.0-15.0); Lymphocyte # 2.34 X10^3/ul (0.83-4.51); Lymphocyte % 17.2 % (19-41); Mean Corp Hgb Conc 29.3 g/dL (32-36); Mean Corpuscular Hgb 24.5 pg (27.0-32.0); Mean Corpuscular Volume 83.6 fL (81-99); Mean Platelet Vol. 10.4 fl (6.2-12.0); Monocyte# 0.97 X10^3/uL; Monocyte% 7.1 % (0-10); NRBC Flagged by Analyzer 0 % (0-5); Neutrophil # 9.78 X10^3/uL (2.7-7.7); Platelet Count 303 K/mm3 (150-450); RBC Distribution Width CV 16.8 % (11.6-14.6); RBC Distribution Width SD 50.7 fl (35.1-43.9); Red Blood Count 4.21 M/mm3 (4.2-5.4); White Blood Count 13.6 K/mm3 (4.4-11.0)
[2021-11-25 06:37] LABS: Anion Gap 7 (5-15); BUN 24 mg/dL (7-18); BUN/Creat Ratio 28.1 RATIO (10-20); Calcium,Total 8.9 mg/dL (8.5-10.1); Chloride 100 mmol/L (98-107); Creatinine, Serum 0.86 mg/dL (0.55-1.02); EST Glomerular Filtration Rate 68 mL/min (>60); Est Glom Filt Rate - Afr Amer 83 mL/min (>60); Estimated Creatinine Clearance 39.35 ml/min; Glucose 148 mg/dL (74-106); Potassium 3.4 mmol/L (3.5-5.1); Sodium Level 140 mmol/L (136-145)
--- NOTE | 2021-11-25 06:48 | NURSING ---
patient weaned down to 2L and tolerating well, patient Spo2 is 96%
[2021-11-25] MEDS: Jevity 1.5. 1,000 ML Bottle 250 ML GT ×2 (09:00→13:40)
[2021-11-25] MEDS: amLODIPine 5 MG Tablet GT (09:00)
[2021-11-25] MEDS: APIXABAN 5 MG TABLET GT (09:00)
[2021-11-25] MEDS: Potassium Chloride Oral Soln 20 MEQ/15 ML UDC 60 MEQ GT (09:00)
[2021-11-25] MEDS: Gabapentin 300 MG Capsule GT (09:00)
[2021-11-25] MEDS: carBAMazepine 200 MG/10 ML UDC GT (09:00)
[2021-11-25] MEDS: Amiodarone 200 MG Tablet 100 MG GT (09:00)
--- NOTE | 2021-11-25 10:02 | ST.MBS ---
Modified Barium Swallow - Patient Information Study Date: 11/25/21 Study Time: 09:30 Direct Billable Minutes: 120 Total Minutes procedure & reportin Diagnosis: CHF (I50.9), Acute respiratory failure w/ hypoxia (J96.01) E87.6 Referring Physician: Wilma Cortes Reason for Referral: Objectively assess swallow function, risk for aspiration, and determine recommendations for least restrictive diet textures and compensatory strategies to improve safety of swallow. Medical History: SINA VIZCARRA, is a 76 F resident at an [facility] who was brought to [facility] ED with shortness of breath, cough as well as chest congestion. PMH including MS, GERD, DM Type 2, dementia (unspecified), malignant neoplasm of lip unspecified (SEE chart for full PMH). Patient symptoms apparently started 2 days prior to her admission. Her symptoms have gotten progressively worse. She was also reported to have developed low-grade fever at the [place] [facility]. She was found to be significantly hypoxic with oxygen saturation at 78% on room air on the morning of her admission. An assessment of acute hypoxia secondary to combination of CHF and suspected pneumonia made. Patient well known to ST department w/ recent MBSS 08/2021 w/ recommendations soft and bite size textures / thin liquids w/ use of compensatory strategies. ST spoke w/ EMAIL DESIGNER at [facility] ([place]) who has been working w/ patient who reports patient is on a mechanical soft texture / thin liquid diet w/ use of PEG when <50% of meal is consumed. Patient presents during this admission w/ rhonchus breath sounds at this date w/ chest x-ray impression re: findings suggestive of bibasilar atelectasis more prominent on the left side superimposed on basilar scarring. This has progressed as compared to prior study. Patient currently on 2L of O2 via nasal canula. Current Diet Ordered: NPO - PEG for primary hydration/nutrition needs Dentition: Natural Teeth - Natural Teeth on Lower, Edentulous - Edentulous on top, dentures at [facility] Mental Status: Impaired Comment: Mental status fluctuates Respiratory Status: Oxygenating on 2L/M nasal cannula - Penetration-Aspiration Scale Penetration-Aspiration Scale: OBJECTIVE ASSESSMENT OF SWALLOW FUNCTION (QUANTITATIVE ? PER TRIAL): PENETRATION / ASPIRATION SCALE (ALVAREZ): 1 = does not enter airway 2 = enters airway/above vocal folds/ejected 3 = enters airway/above vocal folds/not ejected 4 = enters airway/contacts vocal folds/ejected 5 = enters airway/contacts vocal folds/not ejected 6 = enters airway/below vocal folds/ejected 7 = enters airway/below vocal folds/not ejected despite effort 8 = enters airway/below vocal folds/no effort VIDEOFLOROSCOPIC SCALE SCORE (ALVAREZ): Grade I = aspiration of material that has penetrated into the laryngeal vestibule, intact cough reflex Grade II = aspiration < 10 % of the bolus, intact cough reflex Grade III = aspiration of < 10 % of the bolus, reduced cough reflex or aspiration of > 10 % of the bolus, intact cough reflex Grade IV = aspiration of > 10 % of the bolus, reduced cough reflex - Penetration-Aspiration Scale Score Thin Liquid via teaspoon Result: 2= enter airway/above vocal folds/ejected Thin Liquid via teaspoon Trial 2 Result: 3= enters airways/above vocal folds/not ejected Thin Liquid via small single sip from cup Result: 2= enter airway/above vocal folds/ejected Thin Liquid via small single sip from cup Trial 2 Result: 1= does not enter airway Thin Liquid via teaspoon Effortful swallow Result: 3= enters airways/above vocal folds/not ejected [place] Thick Liquid via small single sip from cup Result: 1= does not enter airway Honey Thick Liquid via small single sip from cup Result: 1= does not enter airway Pudding Result: 1= does not enter airway Cookie Result: 1= does not enter airway Thin Liquid via teaspoon Effortful swallow Trial 2 Result: 2= enter airway/above vocal folds/ejected - Oral Phase Labial Seal: No Labial Escape Tongue Control During Bolus Hold: Posterior escape of greater than half of bolus Bolus Preparation/Mastication: Slow prolonged chewing/mashing with complete recollection Bolus Transport/Lingual Motion: Repetitive/disorganized tongue motion Oral Residue: Residue collection on oral structures - Pharyngeal Phase Initiation of Pharyngeal Swallow: Bolus head in pyriforms Soft Palate Elevation: No bolus between soft palate and pharyngeal wall Laryngeal Elevation: Partial superior movement thyroid cart/partial apprx aryt-epig petiole Anterior Hyoid Excursion: Partial anterior movement Epiglottic Movement: Complete inversion Laryngeal Vestibule Closure at Height of Swallow: Incomplete; narrow column of air/contrast in laryngeal vestibule Pharyngeal Stripping Wave: Present - diminished Tongue Base Retraction: Narrow column of contrast between tongue base & post. pharyngeal wall Pharyngeal Residue: Collection of residue within or on pharyngeal structures - Esophageal Phase Esophageal Clearance: Complete clearance - Treatment Strategies Effects of treatment strategies attemped:: effortful swallow = somewhat effective - Diagnosis/Impression Diagnosis: moderate oropharyngeal dysphagia (R13.12) Impression: Oral phase primarily marked by... - moderate mastication insufficiency. Patient self reports that she has upper dentures at [facility]. Patient has bottom teeth w/ few missing. - swallow onset delay resulting in premature bolus loss to the pyriforms - slowed AP transport w/ 1/2 cookie coated in pudding - mild oral residue post deglutition Pharyngeal phase primarily marked by... - delayed pharyngeal swallow onset timing resulting in suboptimal bolus location upon swallow onset - reduced airway closure of the airway during deglutition attributed to reduced laryngeal elevation, reduced anterior hyoid excursion resulting in poor laryngeal vestibule closure. - collection of pharyngeal residue observed post deglutition which improved w/ verbal prompt for a dry re-swallow. Patient at risk for post prandial aspiration of pharyngeal residue. - penetration observed w/ thin via tsp and cup. Cannot definitively rule out aspiration due to pt.'s body habitus. - Unable to score UES due to pt.'s body habitus. - Recommendations Diet: Mechanical Soft Textures, Thin Liquids Comment: IDDSI MINCED AND MOIST LEVEL 5 Compensatory Strategies: Small Bites, Small Sips, Slow Rate, Feed only when alert, Multiple Swallows, Alternate bites/solids and sips/liquids, Sitting upright, Remain sitting upright for 30 minutes after PO intake, Minimize/decrease distractions, Assist with verbal cues to use recommended strategies Supervision: 1:1 Close Supervision Recommend Repeat Modified Barium Swallow: TBD Need for Skilled Speech Therapy Services: Yes Comment: Will recommend patient for continued dysphagia therapy to address deficits in oropharyngeal swallow function. EMAIL DESIGNER to monitor diet tolerance, closely monitor lung sounds and continued education/training on compensatory strategies to improve swallow function to decrease risk of aspiration w/ PO intake. Consider patient for oropharyngeal strengthening to improve tongue base retraction, hyoid excursion and laryngeal elevation to protect airway. Education Completed: 1. Described result of evaluation., 2. Pt understands evaluation & agrees with goals and treatment plan. - Status Active ST Patient: Active - Contact Information [facility] Speech Therapy:: Bev Cortez M.A. [facility]-EMAIL DESIGNER Speech-Language Pathologist [facility] [address] [place] [id number] [email or web address] [phone] 11/25/21 10:38
--- NOTE | 2021-11-25 10:14 | CASEMGMT ---
Pt qualifies for palliative referral via screening tool and Dr. Cortes aware and agreeable. Referral e-mailed and plan is to d/c pt back to [facility] today. CM to follow for any further discharge planning/needs. Alexander CONTE CM
--- NOTE | 2021-11-25 11:46 | CASEMGMT ---
Patient will be returning to [facility] today. JAGDEEP notified Quiana at [facility]. JAGDEEP also notified Quiana that [facility] RN CM made a referral to Palliative Care. Plan: d/c back to [facility] under intermediate level of care. Physicians will transport patient. Mariaa COSTELLO
--- NOTE | 2021-11-25 12:27 | TREXTCAR_ITS ---
Diet Diet Order/Speech Therapy: See speech therapy notes below Tube Feed: Jevity as below Routine Orders/Code Status Suppository Frequency: Daily PRN O2 Liters per Minute: 2 O2 Frequency: Continuous (At at bedtime only and as needed otherwise) Keep PO Greater than or Equal to (%): 90 Routine Lab Work: CBC (In 1 week) and BMP (In 1 week) Code Status: DNRCC-A (No intubation) Wound(s) left lower cabrera: Wound Type: skin irritation Dressing Change: Mepilex Suggestions for Active Care Change Position every (hours): 2 Hours to sit in a chair: 2 Times a day to sit in chair: 3 Therapies Physical Therapy: Eval and Treat Occupational Therapy: Eval and Treat Speech Therapy: Eval and Treat Problem/Diagnosis (1) Acute respiratory failure with hypoxia: Status: Acute Code(s): J96.01 - Acute respiratory failure with hypoxia (2) Toxic metabolic encephalopathy: Status: Acute Code(s): G92.8 - Other toxic encephalopathy (3) Leukocytosis: Status: Acute Code(s): D72.829 - Elevated white blood cell count, unspecified (4) Hypokalemia: Status: Acute Code(s): E87.6 - Hypokalemia Allergies/Procedures Done in Hospital Allergies codeine Allergy (Unknown, Verified 05/03/21 16:48) Hives cefazolin Allergy (Verified 05/03/21 16:48) Rash ciprofloxacin [From Cipro] Allergy (Verified 05/03/21 16:48) Hives ciprofloxacin HCl [From Cipro] Allergy (Verified 05/03/21 16:48) Hives Tolerated Levaquin therapy despite allergy Latex, Natural Rubber Allergy (Verified 05/03/21 16:48) Rash Penicillins [PCN] Allergy (Verified 05/03/21 16:48) Hives vancomycin Allergy (Verified 05/03/21 16:48) Angioedema adhesive tape Adverse Reaction (Verified 05/03/21 16:48) Rash Procedures: 2-D Echocardiogram and - (Modified barium swallow) Type of Care/Length of Stay Estimated LOS: More Than 30 Days Type of Care Needed: Intermediate Rehab Potential: Fair Prognosis: Fair Additional Orders/Day of Discharge Day of Discharge: 11/25/21 Dietary and Speech Recommendations Dietitian Recommendations/Changes: Will continue Jevity 1.5 250mL bolus 4x/day w/ 75mL H2O flush before and after each bolus to provide 1500 calories, 63.8 g protein, and 1360mL total fluid/day. Will monitor ability to resume PO diet and adjust tube feeds as indicated. Daily wts. Speech Linguistic Eval Summary: - Recommendations based on modified barium swallow Diet: Mechanical Soft Textures, Thin Liquids Compensatory Strategies: Small Bites, Small Sips, Slow Rate, Feed only when alert, Multiple Swallows, Alternate bites/solids and sips/liquids, Sitting upright, Remain sitting upright for 30 minutes after PO intake, Minimize/decrease distractions, Assist with verbal cues to use recommended strategies Supervision: 1:1 Close Supervision Recommend Repeat Modified Barium Swallow: TBD Need for Skilled Speech Therapy Services: Yes Comment: Will recommend patient for continued dysphagia therapy to address deficits in oropharyngeal swallow function. CRYPTOGRAPHIC MACHINE OPERATOR to monitor diet tolerance, closely monitor lung sounds and continued education/training on compensatory strategies to improve swallow function to decrease risk of aspiration w/ PO intake. Consider patient for oropharyngeal strengthening to improve tongue base retraction, hyoid excursion and laryngeal elevation to protect airway. Education Completed: 1. Described result of evaluation., 2. Pt understands evaluation & agrees with goals and treatment plan. Discharge Plan Admission Admit Date/Time: 11/22/21 09:35 Attending Provider: Wilma Cortes Primary Care Provider: Uriel Mac Consulting Providers: Fabrice Gilliam Discharge Orders/Prescriptions Prescriptions: No Action albuterol sulfate 2.5 MG/3 ML solution for nebulization 2.5 mg inhalation Q2H PRN PRN (Reason: SOB/Wheezing) 0RF gabapentin 300 mg Capsule 300 mg G-tube BID Qty: 0 0RF carbamazepine 200 mg/10 mL Suspension 200 mg G-tube BID Qty: 0 0RF acetaminophen 325 mg tablet 650 mg feeding tube Q6H PRN (Reason: PAIN AND FEVER) Qty: 0 0RF atorvastatin 20 MG tablet 20 mg feeding tube QHS Qty: 0 0RF hydralazine 50 MG tablet 50 mg feeding tube TID Qty: 0 0RF Rx Instructions: hold for bp less than 100/60 polyethylene glycol 3350 17 gram/dose powder 17 g feeding tube DAILY Qty: 0 0RF apixaban 2.5 MG tablet 5 mg feeding tube BID Qty: 0 0RF amiodarone 200 mg tablet 100 mg G-tube DAILY amlodipine 2.5 mg tablet 5 mg feeding tube DAILY duloxetine 30 mg capsule,delayed release(DR/EC) 60 mg PO DAILY Referrals / Follow Up: Uriel Mac MD [Primary Care Provider] -
--- NOTE | 2021-11-25 12:31 | PCM.DC.SUM ---
Providers Date of Admission: 11/22/21 Primary Care Physician: Dr. Uriel Mac MD Reason For Visit: CHF/ PNEUMONIA Diagnosis Discharge Diagnosis (1) Acute respiratory failure with hypoxia: Status: Acute Code(s): J96.01 - Acute respiratory failure with hypoxia (2) Toxic metabolic encephalopathy: Status: Acute Code(s): G92.8 - Other toxic encephalopathy (3) Leukocytosis: Status: Acute Code(s): D72.829 - Elevated white blood cell count, unspecified (4) Hypokalemia: Status: Acute Code(s): E87.6 - Hypokalemia Plan Acute hypoxic respiratory failure--> possibly multifactorial -Exact etiology is unclear at this time -Patient has been able to be weaned to nasal cannula at 3 to 4 L with oxygen saturations greater than 92% -BNP was elevated however much less elevated than previous assessments -Chest x-ray does not show infiltrate -COVID and flu negative -Respiratory viral panel negative -MRSA PCR is negative however with patient residing at a nursing facility we will go ahead and cover for MRSA at this time -Continue daptomycin for now but will likely discontinue if cultures do not show MRSA within the next 24 hours -Continue aztreonam -Continue diuresis but will likely decrease Lasix within the next 24 hours as BUN is starting to rise -Serum creatinine stable -Blood cultures with no growth at 48 hours -Urine cultures pending -Echocardiogram was done on 11/22/2021 and demonstrated an EF of 70% with moderate concentric LVH, moderate left atrial enlargement, moderate to severe mitral annular calcification and stage II diastolic dysfunction Leukocytosis -Continue antibiotics as above -White count is trending down -Await cultures Failure to thrive -Patient much more appropriate today and seems more motivated -Continue PT/OT/speech therapy Toxic/metabolic encephalopathy -Anticipate related to 1 -Resolving -Patient much more alert and interactive today Hypokalemia - 40 mill equivalents of potassium given via PEG -Potassium is trending up -Repeat in a.m. PAF -Patient is on coagulation with apixaban -Continue amiodarone -Currently appears to be in normal sinus rhythm History of DVT -Continue systemic anticoagulation with apixaban Hypertension -Continue home hydralazine and amlodipine -Continue as needed medications and adjust as needed Hyperlipidemia -Continue atorvastatin Dysphagia -Continue speech therapy -MBS is planned for tomorrow History of CAD -PCI on 08/29/2012 -Continue home therapy LAURITA -Continue nocturnal CPAP HFpEF -Repeat echocardiogram appears stable -Continue diuresis as noted above--> we will likely start decreasing diuresis with the next 24 hours -BNP was only mildly elevated when compared to recently assessed numbers Debility -PT/OT consultation -Speech therapy consultation Obesity -BMI 40.9 -Recommend weight loss -Complicates treatment, prognosis, outcomes Depression -Continue home duloxetine DVT prophylaxis -Continue apixaban as ordered CODE STATUS -Full code Medications at Discharge Home Medications albuterol sulfate 2.5 mg/3 mL (0.083 %) solution for nebulization 2.5 mg (3 mL) inhalation Q2H PRN PRN SOB/Wheezing 08/12/19 acetaminophen 325 mg tablet 650 mg feeding tube Q6H PRN PAIN AND FEVER #0 tabs 05/07/21 apixaban 2.5 mg tablet 5 mg feeding tube BID DVT #0 tabs 05/07/21 atorvastatin 20 mg tablet 20 mg feeding tube QHS cholesterol #0 tabs 05/07/21 carbamazepine 200 mg/10 mL oral suspension 200 mg (10 mL) G-tube BID #0 mL 05/07/21 gabapentin 300 mg capsule 300 mg G-tube BID #0 caps 05/07/21 hydralazine 50 mg tablet 50 mg feeding tube TID bp #0 tabs 05/07/21 polyethylene glycol 3350 17 gram/dose oral powder 17 g feeding tube DAILY #0 grams 05/07/21 amiodarone 200 mg tablet 100 mg G-tube DAILY heart 11/22/21 amlodipine 2.5 mg tablet 5 mg feeding tube DAILY HTN 11/22/21 duloxetine 30 mg capsule,delayed release 60 mg PO DAILY depression 11/22/21 clindamycin HCl 300 mg capsule 300 mg feeding tube Q8H #12 caps 11/25/21 furosemide 40 mg tablet 40 mg G-tube DAILY #30 tabs 11/25/21 lactose-reduced food with fiber 0.06 gram-1.5 kcal/mL oral liquid (Jevity 1.5 Laureano) 250 ml G-tube 4X/DAY #0 mL 11/25/21 menthol 0.44 %-zinc oxide 20.6 % topical ointment (Calmoseptine) 1 applic topical TID #0 grams 11/25/21 Hospital Course Operations None Procedures 2-D Echocardiogram and - (Modified barium swallow) Summary of Care Provided Minutes Spent on Discharge: 38 Hospital Course: Mrs. Ya is a 76-year-old white female who was brought from an extended care facility on 11/22/2021 to the hospital emergency department at [facility] with shortness of breath, cough as well as chest congestion and confusion. Evidently her symptoms started 2 days prior to presentation. Symptoms had gotten progressively worse and she was reported to have a low-grade fever however exact temperature was not reported. She was found to be significantly hypoxic with an oxygen saturation at 78% on room air on the morning of admission. Vital signs at the time of presentation showed a temperature of 97.2, heart rate 87, respiratory 19, blood pressure is 186/70, and oxygen saturation was 78% on room air. Her oxygen saturation improved initially to 98% on 4 L nasal cannula. She remained short of breath with tachypnea and shallow breathing throughout her hospital emergency department course. Her CBC at the time of admission showed a significant leukocytosis with a white count of 20.0 and a mild stable anemia with a hemoglobin of 11. There was a left shift present with a neutrophilia of 81.4. Her chemistry panel was overall unremarkable other than a glucose of 159. A BNP was obtained and found to be elevated at 273.8 however this is lower than previous. Cardiac enzyme was obtained and initial was 43. Cardiac enzymes were cycled on admission and found to be stable at 43, 43, and 45. Her TS H was 0.59. Respiratory viral panel was obtained and found to be unremarkable, COVID-19 was negative, strep pneumo and Legionella Ag antigens were normal, urine culture had no growth on the preliminary results, blood cultures were no growth at 48 hours, and her respiratory culture showed normal respiratory ozzy. She has a known history of dysphagia and was evaluated by speech therapy. Initially her mental status was extremely poor and after admission she required up titration to her oxygen and was placed on Airvo. She was maintained on Airvo for approximately 36 hours and was eventually able to be weaned requiring no significant oxygen during the day at the time of discharge with an oxygen saturation of 89%. She will need oxygen nocturnally as I do anticipate she has obstructive sleep apnea which is not treated. We will request 2 L D placed on at night and as needed during the day for sats less than 90%. She was treated with aztreonam and daptomycin initially and her antibiotics were narrowed at the time of discharge to clindamycin to cover aspiration. She was finally strong enough to participate and mentally aware enough to participate with a modified barium swallow on 11/25/2021. (Of note the patient has a PEG tube at baseline). She was noted to have moderate oropharyngeal dysphagia on her modified barium swallow and recommendations for mechanical soft with thin liquid diet was made by speech therapy. Significant compensatory strategies as well as one-on-one supervision was recommended with a follow-up modified barium swallow to be determined after speech therapy is reinitiated after discharge at her ECF. As noted she was a bit initially very somnolent and confused however mental status improved dramatically and she was back to her baseline by 11/24/2021 and further improved by 11/25/2021. She is also maintained on diuretics during hospitalization and was discharged on 40 mg of Lasix daily. She will need a follow-up BMP within the next week and I would recommend a follow-up CBC at that time as well to assure normalization of her white count. Her white count did trend down from 20-13 by the day of discharge. She had intermittent electrolyte abnormalities which were replaced. These were likely related to ongoing diuresis with IV Lasix. She was discharged back to her ECF on 11/25/2021 in stable condition with recommendation to follow-up with her primary care physician within the next week. She is to continue physical, occupational, and speech therapy. Discharge diagnoses: Acute hypoxic respiratory [id number] Leukocytosis-improving Aspiration pneumonia Failure to thrive Improved Toxic/metabolic encephalopathy-resolved Hypokalemia-improved PAF History of DVT Hypertension Hyperlipidemia Dysphagia CAD LAURITA HFpEF Debility Obesity Depression Weight / BMI Weight Weight: 93.2 kg Body Mass Index (BMI) 40.1 ABG / Lab / Microbiology Data Result Diagrams: 11/25/21 05:38 11/25/21 05:38 Laboratory: Laboratory Results - last 24 hr 11/25/21 05:38: WBC 13.6 H, RBC 4.21, Hgb 10.3 L, Hct 35.2 L, MCV 83.6, MCH 24.5 L, MCHC 29.3 L, RDW Std Deviation 50.7 H, RDW Coeff of Carissa 16.8 H, Plt Count 303, MPV 10.4, Immature Gran % (Auto) 0.700, Neut % (Auto) 72.0 H, Lymph % (Auto) 17.2 L, Jefferson % (Auto) 7.1, Eos % (Auto) 2.6, Baso % (Auto) 0.4, Absolute Neuts (auto) 9.8 H, Absolute Lymphs (auto) 2.34, Nucleated RBC % 0 11/25/21 05:38: Sodium 140, Potassium 3.4 L, Chloride 100, Carbon Dioxide 33.0 H, Anion Gap 7, BUN 24 H, Creatinine 0.86, Estim Creat Clear Calc 39.35, Est GFR (MDRD) Af Amer 83, Est GFR (MDRD) Non-Af 68, BUN/Creatinine Ratio 28.1 H, Glucose 148 H, Calcium 8.9 Microbiology: Microbiology 11/23/21 19:58 Interface Orders Gram Stain - Final 11/23/21 19:58 Interface Orders Respiratory Culture - Preliminary Appears to be normal respiratory ozzy. Further studies to follow. 11/23/21 19:58 Urine, Clean Catch Urine Culture - Preliminary Culture exhibits no growth. 11/22/21 10:23 Blood Culture (Wb) - Left Wrist Blood Culture - Preliminary No growth in 48 hours. 11/22/21 08:15 Blood Culture (Wb) - Right Hand Blood Culture - Preliminary No growth in 48 hours. 11/22/21 15:10 Urine, Clean Catch Legionella Antigen - Final 11/22/21 15:10 Urine, Clean Catch Streptococcus pneumoniae Antigen (M - Final 11/22/21 11:55 Mucosa - Nasopharyngeal Respiratory Panel (PCR) - Final Meaningful Use Info Meaningful Use Diagnoses (Choose all that apply): None applicable Discharge Plan Admission Admit Date/Time: 11/22/21 09:35 Primary Reason for Your Visit: Shortness of breath/acute mental status change Attending Provider: Wilma Cortes Primary Care Provider: Uriel Mac Consulting Providers: Fabrice Gilliam Discharge Orders/Prescriptions Prescriptions: New furosemide 40 mg Tablet 40 mg G-tube DAILY Qty: 30 0RF menthol-zinc oxide [Calmoseptine] 0.44-20.6 % Ointment 1 applic topical TID Qty: 0 0RF Protocol: *Topical Application Instructions APPLICATION INSTRUCTIONS: apply to buttocks bilat and coccyx Jevity 1.5 Laureano 0.06 gram-1.5 kcal/mL Liquid 250 ml G-tube 4X/DAY Qty: 0 0RF clindamycin HCl 300 mg capsule 300 mg feeding tube Q8H Qty: 12 0RF Continued albuterol sulfate 2.5 MG/3 ML solution for nebulization 2.5 mg inhalation Q2H PRN PRN (Reason: SOB/Wheezing) 0RF gabapentin 300 mg Capsule 300 mg G-tube BID Qty: 0 0RF carbamazepine 200 mg/10 mL Suspension 200 mg G-tube BID Qty: 0 0RF acetaminophen 325 mg tablet 650 mg feeding tube Q6H PRN (Reason: PAIN AND FEVER) Qty: 0 0RF atorvastatin 20 MG tablet 20 mg feeding tube QHS Qty: 0 0RF hydralazine 50 MG tablet 50 mg feeding tube TID Qty: 0 0RF Rx Instructions: hold for bp less than 100/60 polyethylene glycol 3350 17 gram/dose powder 17 g feeding tube DAILY Qty: 0 0RF apixaban 2.5 MG tablet 5 mg feeding tube BID Qty: 0 0RF amiodarone 200 mg tablet 100 mg G-tube DAILY amlodipine 2.5 mg tablet 5 mg feeding tube DAILY duloxetine 30 mg capsule,delayed release(DR/EC) 60 mg PO DAILY Referrals / Follow Up: Uriel Mac MD [Primary Care Provider] - Within 1 Week Disposition Disposition (needs filled in before D/C Order can be placed): NonSkilled NH/Intermed Care Charges/Coding Visit Charges Inpatient E&M: 29799 SNF Disch >30 Min
--- NOTE | 2021-11-25 12:38 | NURSING ---
[facility] d/t pt off unit for testing
--- NOTE | 2021-11-25 13:26 | CASEMGMT ---
Discharge Squeezer Operator This bid writer sent d/c orders via [facility] to [facility]. electric motor repairing supervisor time with Physicians is 3:00pm. Nursing staff and Quiana at the [facility] has been notified. Timothy MAYER Tender Coordinator
--- NOTE | 2021-11-25 14:37 | NURSING ---
Report called to Jessy guillen at the [facility].
== END 2021-11-25 15:44 | disposition intermediate care facility (04) | DRG 189 ==
LOC: ED 09:23 → PCU 10:11
PROVIDERS: Admitting Provider Internal Medicine; Emergency Provider Emergency Medicine; PCP Family Medicine; Visit Provider Internal Medicine
DX: J96.01 Acute respiratory failure with hypoxia (principal); I50.33 Acute on chronic diastolic (congestive) heart failure; G92.8 Other toxic encephalopathy; Z68.41 Body mass index [BMI] 40.0-44.9, adult; E11.51 Type 2 diabetes mellitus with diabetic peripheral angiopathy without gangrene; G35 Multiple sclerosis; I48.0 Paroxysmal atrial fibrillation; R62.7 Adult failure to thrive; I11.0 Hypertensive heart disease with heart failure; E66.01 Morbid (severe) obesity due to excess calories; Z93.1 Gastrostomy status; F32.A Depression, unspecified; E78.5 Hyperlipidemia, unspecified; G47.33 Obstructive sleep apnea (adult) (pediatric); I25.10 Atherosclerotic heart disease of native coronary artery without angina pectoris; E87.6 Hypokalemia; I34.81 Nonrheumatic mitral (valve) annulus calcification; Z79.01 Long term (current) use of anticoagulants; Z66 Do not resuscitate; Z23 Encounter for immunization; Z20.822 Contact with and (suspected) exposure to COVID-19; Z79.899 Other long term (current) drug therapy; Z87.891 Personal history of nicotine dependence; Z86.718 Personal history of other venous thrombosis and embolism; Z95.5 Presence of coronary angioplasty implant and graft; Z95.1 Presence of aortocoronary bypass graft; R13.12 Dysphagia, oropharyngeal phase
CPT/HCPCS: 36415; 71045; 74230; 80048; 80076; 81001; 82550; 83605; 83735; 83880; 84100; 84443; 84484; 85025; 87040; 87070; 87086; 87205; 87449; 87633; 87641; 87811; 92610; 92611; 93005; 93306; 94640; 94660; 97802; 97803; 99285; G0008; J0878; J7040; J7050; Q9957; 90686; A4216; C8929; J1940; J3490

== ENCOUNTER 2022-01-10 13:42 | Emergency (ER) | payer MEDICARE, MEDICAID, SELFPAY ==
[2022-01-10 13:42] VITALS: BP 144/66; PULSE 82; RESP 16; TEMP 36.6; O2SAT 94; BMI 39.9
--- NOTE | 2022-01-10 14:38 | EX.ED.DYSGE1 ---
HPI History of Present Illness Chief Complaint: Other, Pain/Inj Informant: patient Narrative Narrative: 76-year-old female from the [facility] presenting to the emergency department with PEG tube dislodgment. She cannot tell me when she had the PEG tube placed or for what reason. She states that she has been eating [place] [employer] without any problem and she does not know the last time that she used her PEG tube. She really does not want it to be put back in. According to the nurse that cares for her it was put in for an MS flare in which she could not swallow and so if she has another flare and they need to supplement nutrition they would like to have it back in. Patient understands this and is in agreement with proceeding with the placement. [facility] Medical History Acute on chronic renal failure Acute respiratory insufficiency Atherosclerotic heart disease of [place] coronary artery without angina pectoris Bilateral pneumonia Carcinoma of lip Cellulitis of right leg Chronic anemia Chronic GI bleeding Congestive heart failure (CHF) Debility Dementia Diabetic ulcer of both lower extremities Diastolic CHF Essential hypertension Feeding difficulty in adult General weakness GERD (gastroesophageal reflux disease) GERD (gastroesophageal reflux disease) History of DVT (deep vein thrombosis) Hyperlipidemia Iron deficiency anemia detention current use of amiodarone Multiple sclerosis LAURITA (obstructive sleep apnea) LAURITA (obstructive sleep apnea) Paroxysmal atrial fibrillation Peripheral vascular disease Presence of stent in coronary artery (~08/29/12) Pyelonephritis Restrictive airway disease Swallowing dysfunction Trigeminal neuralgia Type 2 diabetes mellitus Ulcer of left lower extremity with fat layer exposed Ulcer of right lower extremity with fat layer exposed UTI (urinary tract infection) Venous insufficiency of both lower extremities Venous insufficiency of both lower extremities Home Medications albuterol sulfate 2.5 mg/3 mL (0.083 %) solution for nebulization 2.5 mg (3 mL) inhalation Q2H PRN PRN SOB/Wheezing 08/12/19 [Rx Last Taken Unknown] acetaminophen 325 mg tablet 650 mg feeding tube Q6H PRN PAIN AND FEVER #0 tabs 05/07/21 [Rx Last Taken Unknown] apixaban 2.5 mg tablet 5 mg feeding tube BID DVT #0 tabs 05/07/21 [Rx Last Taken 10/21/20] atorvastatin 20 mg tablet 20 mg feeding tube QHS cholesterol #0 tabs 05/07/21 [Rx Last Taken 10/20/20] carbamazepine 200 mg/10 mL oral suspension 200 mg (10 mL) G-tube BID #0 mL 05/07/21 [Rx Last Taken Unknown] gabapentin 300 mg capsule 300 mg G-tube BID #0 caps 05/07/21 [Rx Last Taken Unknown] hydralazine 50 mg tablet 50 mg feeding tube TID bp #0 tabs 05/07/21 [Rx Last Taken 10/21/20] polyethylene glycol 3350 17 gram/dose oral powder 17 g feeding tube DAILY #0 grams 05/07/21 [Rx Last Taken Unknown] amiodarone 200 mg tablet 100 mg G-tube DAILY heart 11/22/21 [History Last Taken Unknown] amlodipine 2.5 mg tablet 5 mg feeding tube DAILY HTN 11/22/21 [History Last Taken Unknown] duloxetine 30 mg capsule,delayed release 60 mg PO DAILY depression 11/22/21 [History Last Taken Unknown] clindamycin HCl 300 mg capsule 300 mg feeding tube Q8H #12 caps 11/25/21 [Rx Last Taken Unknown] furosemide 40 mg tablet 40 mg G-tube DAILY #30 tabs 11/25/21 [Rx Last Taken Unknown] lactose-reduced food with fiber 0.06 gram-1.5 kcal/mL oral liquid (Jevity 1.5 Laureano) 250 ml G-tube 4X/DAY #0 mL 11/25/21 [Rx Last Taken Unknown] menthol 0.44 %-zinc oxide 20.6 % topical ointment (Calmoseptine) 1 applic topical TID #0 grams 11/25/21 [Rx Last Taken Unknown] Allergy/AdvReac Type Severity Reaction Status Date / Time codeine Allergy Unknown Hives Verified 01/10/22 13:48 cefazolin Allergy Rash Verified 01/10/22 13:48 ciprofloxacin [From Cipro] Allergy Hives Verified 01/10/22 13:48 ciprofloxacin HCl Allergy Hives Verified 01/10/22 13:48 [From Cipro] Latex, Natural Rubber Allergy Rash Verified 01/10/22 13:48 Penicillins [PCN] Allergy Hives Verified 01/10/22 13:48 vancomycin Allergy Angioedema Verified 01/10/22 13:48 adhesive tape AdvReac Rash Verified 01/10/22 13:48 Family History Father Heart disease Cancer prostate Mother Hypertension Cancer mets but unsure where to Breast cancer Brother Diabetes Hypertension Surgical History History of cataract surgery History of cholecystectomy History of coronary artery bypass surgery (~01/02/11) History of hernia repair History of tonsillectomy and adenoidectomy History of total hysterectomy Presence of coronary angioplasty implant and graft (~08/29/12) S/P percutaneous endoscopic gastrostomy (PEG) tube placement Social History housing: assisted Smoking Status: Former smoker how long ago did patient quit smokin alcohol intake: never substance use type: does not use caffeine: Yes Type: coffee Number of servings: 1 additional social history: DOES NOT USE ASPIRIN DOES US IBUPROFEN ROS ROS ED Constitutional Constitutional ED: Denies chills, fever(s) or weight loss Eyes Eyes: Denies change in vision or diplopia ENT ENT ED: Denies ear pain, rhinorrhea or sore throat Cardiovascular Cardiovascular: Denies chest pain, orthopnea, palpitations or racing heartbeat Respiratory/Chest Respiratory/Chest: Denies cough, dyspnea or orthopnea Gastrointestinal Gastrointestinal: Denies abdominal pain, diarrhea, nausea or vomiting Genitourinary Genitourinary ED: Denies dysuria, hematuria or urinary frequency Musculoskeletal Musculoskeletal: Denies arthralgias or myalgias Integumentary Denies abscess or rash Neurologic Neurologic: Denies headache(s) or weakness Psychiatric Psychiatric: Denies anxiety, depression, suicidal ideation or suicidal thoughts Endocrine Endocrinology: Denies polydipsia, polyphagia or polyuria Allergic/Immunologic Allergic/Immunologic ED: Denies mouth swelling, tongue swelling or urticaria EXAM Physical Exam Const Vital Signs: 01/10/22 13:42 Temperature 97.8 F Temperature Source Temporal Pulse Rate 82 Respiratory Rate 16 Blood Pressure 144/66 H Blood Pressure Mean 92 Pulse Ox 94 Oxygen Delivery Method Room Air Positive well nourished, well developed and obese General Appearance ED: well developed Nutritional Appearance: obese HEENT Reports normocephalic, head/scalp atraumatic and moist mucous membranes Eyes PERRL and EOMs intact bilaterally Neck no lymphadenopathy, supple and no JVD Resp normal respiratory effort and clear to auscultation bilaterally Cardio regular rate, regular rhythm and no murmurs GI normal to inspection, nondistended, normoactive bowel sounds and non-tender GI Narrative: There is a well-formed stoma without any active bleeding located in the anterior abdomen. Nontender. Palpation: soft Back/Spine no CVA tenderness and normal ROM Extremity normal to inspection General Extremety ED: Negative for edema General Extremity: Negative for edema Neuro oriented x3 and CN's II-XII intact bilaterally Sensorium / Orientation: alert Motor Exam: strength 5/5 throughout Psych mental status grossly normal Mood & Affect: Negative for depressed or tearful Skin no rashes or lesions noted and no wounds MDM MDM MDM Narrative Medical decision making narrative: I am having difficulty finding what size PEG tube was originally placed. Therefore a 22 Estonian PEG tube was placed without any difficulty and balloon inflated with 6 cc of air. Abdominal x-ray with Gastrografin confirms placement. She will be discharged home. Discharge Plan Triage Chief Complaint: Other, Pain/Inj ED Provider: Erasto Sidhu Dx/Rx/DC Orders Prescriptions: No Action albuterol sulfate 2.5 MG/3 ML solution for nebulization 2.5 mg inhalation Q2H PRN PRN (Reason: SOB/Wheezing) 0RF gabapentin 300 mg Capsule 300 mg G-tube BID Qty: 0 0RF carbamazepine 200 mg/10 mL Suspension 200 mg G-tube BID Qty: 0 0RF acetaminophen 325 mg tablet 650 mg feeding tube Q6H PRN (Reason: PAIN AND FEVER) Qty: 0 0RF atorvastatin 20 MG tablet 20 mg feeding tube QHS Qty: 0 0RF hydralazine 50 MG tablet 50 mg feeding tube TID Qty: 0 0RF Rx Instructions: hold for bp less than 100/60 polyethylene glycol 3350 17 gram/dose powder 17 g feeding tube DAILY Qty: 0 0RF apixaban 2.5 MG tablet 5 mg feeding tube BID Qty: 0 0RF amiodarone 200 mg tablet 100 mg G-tube DAILY amlodipine 2.5 mg tablet 5 mg feeding tube DAILY duloxetine 30 mg capsule,delayed release(DR/EC) 60 mg PO DAILY furosemide 40 mg Tablet 40 mg G-tube DAILY Qty: 30 0RF menthol-zinc oxide [Calmoseptine] 0.44-20.6 % Ointment 1 applic topical TID Qty: 0 0RF Protocol: *Topical Application Instructions APPLICATION INSTRUCTIONS: apply to buttocks bilat and coccyx Jevity 1.5 Laureano 0.06 gram-1.5 kcal/mL Liquid 250 ml G-tube 4X/DAY Qty: 0 0RF clindamycin HCl 300 mg capsule 300 mg feeding tube Q8H Qty: 12 0RF Primary Care Provider: Uriel Mac Referrals: Uriel Mac MD [Primary Care Provider] -
[2022-01-10 15:02] VITALS: BP 141/64; PULSE 72; RESP 16; O2SAT 95
--- NOTE | 2022-01-10 15:40 | RAD_ITS ---
STUDY: X-RAY - ABDOMEN/PELVIS REASON FOR EXAM: Female, 76 years old. PEG Replacement / Needs Gastrogaffin TECHNIQUE: Single AP view of the abdomen / pelvis. COMPARISON: None. FINDINGS: GASTROGRAFIN was injected into the indwelling PEG tube. The tip of the tube is in the stomach. RAD/Abdomen Single View (Portable) IMPRESSION: The tip of the PEG tube is within the distal stomach. Electronically Signed: Milo Hughes MD at 15:39 EST ,
== END 2022-01-10 15:36 | disposition skilled nursing facility (03) ==
LOC: ED 15:14
PROVIDERS: Emergency Provider Emergency Medicine; PCP Family Medicine; Visit Provider Emergency Medicine
DX: I11.0 Hypertensive heart disease with heart failure (principal); E11.621 Type 2 diabetes mellitus with foot ulcer; Z93.1 Gastrostomy status; I50.30 Unspecified diastolic (congestive) heart failure; E78.5 Hyperlipidemia, unspecified; I25.10 Atherosclerotic heart disease of native coronary artery without angina pectoris; Z87.891 Personal history of nicotine dependence; E66.9 Obesity, unspecified
CPT/HCPCS: 43246; 74018

== ENCOUNTER 2022-01-10 23:22 | Emergency (ER) | payer MEDICARE, MEDICAID, SELFPAY ==
[2022-01-10 23:23] VITALS: BP 128/59; PULSE 79; RESP 16; TEMP 36.8; O2SAT 93; BMI 33.5
--- NOTE | 2022-01-11 02:00 | RAD_ITS ---
STUDY: RADIOGRAPH- ABDOMEN/PELVIS REASON FOR EXAM: Female, 76 years old. PEG TUBE TECHNIQUE: Portable supine abdominal radiograph obtained after administering 25 cc GASTROGRAFIN +25 cc water through PEG tube. COMPARISON: Radiograph 01/10/2022. FINDINGS: Enteric contrast administered by the G-tube extends in the stomach. No apparent abdominal aortic luminal contrast. No obstruction. The enteric contrast from yesterday''s study is now in the colon. The gastrostomy tube tip is in the gastric antrum. Sternotomy wires and cardiomegaly partially visible. RAD/Abdomen Single View (Portable) IMPRESSION: Gastrostomy tube tip in the gastric antrum. No obstruction. Electronically Signed: Lester Mcmillan MD at 6:41 EST ,
--- NOTE | 2022-01-11 02:29 | EX.ED.DYSGE1 ---
HPI History of Present Illness Chief Complaint: General Illness Narrative Narrative: Patient is a 76-year-old female from the snf with past medical history of multiple sclerosis and has need for PEG tube. She was seen earlier today because when she was pulling down her nightgown she accidentally caught the PEG tube and dislodged it. The PEG tube was replaced and she was discharged back to her snf. She then states that she thought she had a bowel movement and the nurse was rolling her to help get her cleaned when the PEG tube was caught once again and dislodged. Secondary to the repeat dislodgment she was sent in for evaluation. Patient states otherwise she feels perfectly normal and at her baseline and has no complaints. 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 Multiple sclerosis LAURITA (obstructive sleep apnea) LAURITA (obstructive sleep apnea) Paroxysmal atrial fibrillation Peripheral vascular disease Presence of stent in coronary artery (~08/29/12) Pyelonephritis Restrictive airway disease Swallowing dysfunction Trigeminal neuralgia Type 2 diabetes mellitus Ulcer of left lower extremity with fat layer exposed Ulcer of right lower extremity with fat layer exposed UTI (urinary tract infection) Venous insufficiency of both lower extremities Venous insufficiency of both lower extremities Home Medications albuterol sulfate 2.5 mg/3 mL (0.083 %) solution for nebulization 2.5 mg (3 mL) inhalation Q2H PRN PRN SOB/Wheezing 08/12/19 [Rx Last Taken Unknown] acetaminophen 325 mg tablet 650 mg feeding tube Q6H PRN PAIN AND FEVER #0 tabs 05/07/21 [Rx Last Taken Unknown] apixaban 2.5 mg tablet 5 mg feeding tube BID DVT #0 tabs 05/07/21 [Rx Last Taken 10/21/20] atorvastatin 20 mg tablet 20 mg feeding tube QHS cholesterol #0 tabs 05/07/21 [Rx Last Taken 10/20/20] carbamazepine 200 mg/10 mL oral suspension 200 mg (10 mL) G-tube BID #0 mL 05/07/21 [Rx Last Taken Unknown] gabapentin 300 mg capsule 300 mg G-tube BID #0 caps 05/07/21 [Rx Last Taken Unknown] hydralazine 50 mg tablet 50 mg feeding tube TID bp #0 tabs 05/07/21 [Rx Last Taken 10/21/20] polyethylene glycol 3350 17 gram/dose oral powder 17 g feeding tube DAILY #0 grams 05/07/21 [Rx Last Taken Unknown] amiodarone 200 mg tablet 100 mg G-tube DAILY heart 11/22/21 [History Last Taken Unknown] amlodipine 2.5 mg tablet 5 mg feeding tube DAILY HTN 11/22/21 [History Last Taken Unknown] duloxetine 30 mg capsule,delayed release 60 mg PO DAILY depression 11/22/21 [History Last Taken Unknown] clindamycin HCl 300 mg capsule 300 mg feeding tube Q8H #12 caps 11/25/21 [Rx Last Taken Unknown] furosemide 40 mg tablet 40 mg G-tube DAILY #30 tabs 11/25/21 [Rx Last Taken Unknown] lactose-reduced food with fiber 0.06 gram-1.5 kcal/mL oral liquid (Jevity 1.5 Laureano) 250 ml G-tube 4X/DAY #0 mL 11/25/21 [Rx Last Taken Unknown] menthol 0.44 %-zinc oxide 20.6 % topical ointment (Calmoseptine) 1 applic topical TID #0 grams 11/25/21 [Rx Last Taken Unknown] Allergy/AdvReac Type Severity Reaction Status Date / Time codeine Allergy Unknown Hives Verified 01/10/22 13:48 cefazolin Allergy Rash Verified 01/10/22 13:48 ciprofloxacin [From Cipro] Allergy Hives Verified 01/10/22 13:48 ciprofloxacin HCl Allergy Hives Verified 01/10/22 13:48 [From Cipro] Latex, Natural Rubber Allergy Rash Verified 01/10/22 13:48 Penicillins [PCN] Allergy Hives Verified 01/10/22 13:48 vancomycin Allergy Angioedema Verified 01/10/22 13:48 adhesive tape AdvReac Rash Verified 01/10/22 13:48 Family History Father Heart disease Cancer prostate Mother Hypertension Cancer mets but unsure where to Breast cancer Brother Diabetes Hypertension Surgical History History of cataract surgery History of cholecystectomy History of coronary artery bypass surgery (~01/02/11) History of hernia repair History of tonsillectomy and adenoidectomy History of total hysterectomy Presence of coronary angioplasty implant and graft (~08/29/12) S/P percutaneous endoscopic gastrostomy (PEG) tube placement Social History housing: snf Smoking Status: Former smoker how long ago did patient quit smokin alcohol intake: never substance use type: does not use caffeine: Yes Type: coffee Number of servings: 1 additional social history: DOES NOT USE ASPIRIN DOES US IBUPROFEN ROS ROS ED Constitutional Constitutional ED: Denies chills or fever(s) ENT ENT ED: Denies sore throat Cardiovascular Cardiovascular: Denies chest pain Respiratory/Chest Respiratory/Chest: Denies cough or dyspnea Gastrointestinal Gastrointestinal: Denies abdominal pain, diarrhea, nausea or vomiting Genitourinary Genitourinary ED: Denies dysuria Musculoskeletal Musculoskeletal: Denies myalgias Integumentary Denies rash Neurologic Neurologic: Denies headache(s) Hematologic/Lymphatic Hematologic/Lymphatic: Reports easy bleeding and easy bruising EXAM Physical Exam Const Vital Signs: 01/10/22 23:23 Temperature 98.3 F Temperature Source Temporal Pulse Rate 79 Respiratory Rate 16 Blood Pressure 128/59 H Blood Pressure Mean 82 Pulse Ox 93 Oxygen Delivery Method Room Air Positive well nourished, well developed and obese General Appearance ED: well developed Nutritional Appearance: obese Eyes PERRL and EOMs intact bilaterally Neck supple Resp normal respiratory effort and clear to auscultation bilaterally Cardio regular rate and regular rhythm GI normal to inspection, nondistended, normoactive bowel sounds, non-tender and non-distended GI Narrative: Abdomen is obese soft nontender nondistended with normoactive bowel sounds. There is a circular opening in the right mid to lower quadrant consistent with previous PEG tube placement. There is no surrounding erythema or warmth no discharge or lymphangitic streaking. No voluntary guarding or rigidity or pulsatile mass Auscultation: normoactive bowel sounds Palpation: soft Extremity Extremity Narrative: Chronic edema to the bilateral lower extremities that is equal and symmetric Neuro oriented x3 and CN's II-XII intact bilaterally Sensorium / Orientation: alert Psych mental status grossly normal Skin no rashes or lesions noted MDM MDM MDM Narrative Medical decision making narrative: Patient presented to the ER with stable vitals and only complaint be a dislodged PEG tube. She states that the initial PEG tube was placed almost 1 year ago and therefore had low concern of creating a false passage. Therefore at this time with stable vitals and no complaints and only need for PEG tube replacement did not feel there was need for any type of laboratory testing. The patient had the site of her abdomen cleaned with chlorhexidine and then a 24 [place] PEG tube was placed with manual pressure. Confirmation was by KUB with Gastrografin. Following the placement of her PEG tube now in the proper position she is otherwise safe for discharge back to the snf. Radiography Diagnostic Testing: KUB with Gastrografin as interpreted by the emergency medicine physician indicates PEG tube is in proper placement without perforation or free air Discharge Plan Triage Chief Complaint: General Illness ED Provider: Destin Murguia Dx/Rx/DC Orders Clinical Impression: PEG tube malfunction, Type 2 diabetes mellitus, Essential hypertension Instructions: ED Feeding Tube Replacement Prescriptions: No Action albuterol sulfate 2.5 MG/3 ML solution for nebulization 2.5 mg inhalation Q2H PRN PRN (Reason: SOB/Wheezing) 0RF gabapentin 300 mg Capsule 300 mg G-tube BID Qty: 0 0RF carbamazepine 200 mg/10 mL Suspension 200 mg G-tube BID Qty: 0 0RF acetaminophen 325 mg tablet 650 mg feeding tube Q6H PRN (Reason: PAIN AND FEVER) Qty: 0 0RF atorvastatin 20 MG tablet 20 mg feeding tube QHS Qty: 0 0RF hydralazine 50 MG tablet 50 mg feeding tube TID Qty: 0 0RF Rx Instructions: hold for bp less than 100/60 polyethylene glycol 3350 17 gram/dose powder 17 g feeding tube DAILY Qty: 0 0RF apixaban 2.5 MG tablet 5 mg feeding tube BID Qty: 0 0RF amiodarone 200 mg tablet 100 mg G-tube DAILY amlodipine 2.5 mg tablet 5 mg feeding tube DAILY duloxetine 30 mg capsule,delayed release(DR/EC) 60 mg PO DAILY furosemide 40 mg Tablet 40 mg G-tube DAILY Qty: 30 0RF menthol-zinc oxide [Calmoseptine] 0.44-20.6 % Ointment 1 applic topical TID Qty: 0 0RF Protocol: *Topical Application Instructions APPLICATION INSTRUCTIONS: apply to buttocks bilat and coccyx Jevity 1.5 Laureano 0.06 gram-1.5 kcal/mL Liquid 250 ml G-tube 4X/DAY Qty: 0 0RF clindamycin HCl 300 mg capsule 300 mg feeding tube Q8H Qty: 12 0RF Primary Care Provider: Uriel Mac Referrals: Uriel Mac MD [Primary Care Provider] - Activity Restrictions/Additional Instructions: You may use the PEG tube as you would normally and return to the ER should you have any further concerns Disposition Disposition: Home, Self Care
[2022-01-11 02:43] VITALS: BP 127/48; PULSE 75; RESP 17; O2SAT 93
[2022-01-11 03:33] VITALS: RESP 15
== END 2022-01-11 03:56 | disposition home or self-care (01) ==
PROVIDERS: Emergency Provider Emergency Medicine; PCP Family Medicine; Visit Provider Emergency Medicine
DX: K94.23 Gastrostomy malfunction (principal); E11.621 Type 2 diabetes mellitus with foot ulcer; E11.51 Type 2 diabetes mellitus with diabetic peripheral angiopathy without gangrene; G35 Multiple sclerosis; I11.0 Hypertensive heart disease with heart failure; I50.30 Unspecified diastolic (congestive) heart failure; E78.5 Hyperlipidemia, unspecified; I25.10 Atherosclerotic heart disease of native coronary artery without angina pectoris; E66.9 Obesity, unspecified; Z87.891 Personal history of nicotine dependence
CPT/HCPCS: 43246; 74018; 99283; 99284

== ENCOUNTER 2022-01-31 17:29 | Inpatient (IN) | payer MEDICARE, MEDICAID, SELFPAY ==
[2022-01-31 17:31] VITALS: BP 149/77; PULSE 103; RESP 14; TEMP 38.8; O2SAT 95; BMI 39.3
--- NOTE | 2022-01-31 18:06 | EDS_ITS ---
HPI HPI - GI History of Present Illness Chief Complaint: Abd Pain Detail of Chief Complaint: Abdominal pain x1 week Informant: patient Narrative Narrative: Patient presents with abdominal pain as her about a week ago. Today it hurt more so she was sent in from senior living for evaluation. Patient has not been eating much. She denies vomiting or diarrhea. She denies cough or recent illness. She did develop a fever today. She does describe some dysuria. Patient tells me she has had an appendectomy as well as a hysterectomy and cholecystectomy. [facility] Medical History Acute on chronic renal failure Acute respiratory insufficiency Atherosclerotic heart disease of [place] coronary artery without angina pectoris Bilateral pneumonia Carcinoma of lip Cellulitis of right leg Chronic anemia Chronic GI bleeding Congestive heart failure (CHF) Debility Dementia Diabetic ulcer of both lower extremities Diastolic CHF Essential hypertension Feeding difficulty in adult General weakness GERD (gastroesophageal reflux disease) GERD (gastroesophageal reflux disease) History of DVT (deep vein thrombosis) Hyperlipidemia Iron deficiency anemia senior 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 current use of amiodarone Multiple sclerosis LAURITA (obstructive sleep apnea) LAURITA (obstructive sleep apnea) Paroxysmal atrial fibrillation Peripheral vascular disease Presence of stent in coronary artery (~08/29/12) Pyelonephritis Restrictive airway disease Swallowing dysfunction Trigeminal neuralgia Type 2 diabetes mellitus Ulcer of left lower extremity with fat layer exposed Ulcer of right lower extremity with fat layer exposed UTI (urinary tract infection) Venous insufficiency of both lower extremities Venous insufficiency of both lower extremities Home Medications albuterol sulfate 2.5 mg/3 mL (0.083 %) solution for nebulization 2.5 mg (3 mL) inhalation Q2H PRN PRN SOB/Wheezing 08/12/19 [Rx Last Taken Unknown] apixaban 2.5 mg tablet 5 mg feeding tube BID DVT #0 tabs 05/07/21 [Rx Last Taken 10/21/20] atorvastatin 20 mg tablet 20 mg feeding tube QHS cholesterol #0 tabs 05/07/21 [Rx Last Taken 10/20/20] hydralazine 50 mg tablet 50 mg feeding tube TID bp #0 tabs 05/07/21 [Rx Last Taken 10/21/20] amiodarone 200 mg tablet 100 mg G-tube DAILY heart 11/22/21 [History Last Taken Unknown] amlodipine 2.5 mg tablet 2.5 mg feeding tube DAILY HTN 11/22/21 [History Last Taken Unknown] duloxetine 30 mg capsule,delayed release 60 mg PO DAILY depression 11/22/21 [History Last Taken Unknown] lactose-reduced food with fiber 0.06 gram-1.5 kcal/mL oral liquid (Jevity 1.5 Laureano) 250 ml G-tube 4X/DAY #0 mL 11/25/21 [Rx Last Taken Unknown] acetaminophen 325 mg tablet 650 mg PO Q6H PRN PAIN AND FEVER 01/31/22 [History Last Taken Unknown] bisacodyl 10 mg rectal suppository 10 mg OK DAILY PRN Constipation 01/31/22 [History Last Taken Unknown] carbamazepine 200 mg/10 mL oral suspension 200 mg PO BID 01/31/22 [History Last Taken Unknown] d-mannose 500 mg capsule 2,000 mg PO DAILY 01/31/22 [History Last Taken Unknown] estradiol 0.01% (0.1 mg/gram) vaginal cream 1 applic vaginal QPM UTI 01/31/22 [History Last Taken Unknown] furosemide 40 mg tablet 40 mg PO DAILY 01/31/22 [History Last Taken Unknown] gabapentin 300 mg capsule 300 mg PO BID 01/31/22 [History Last Taken Unknown] guaifenesin 100 mg tablet 600 mg PO Q12H PRN PRN Cough 01/31/22 [History Last Taken Unknown] hydroxyzine HCl 25 mg tablet 25 mg PO Q8 PRN ITCHY RASH ON UPPER AND LOWER EXTREMITIES 01/31/22 [History Last Taken Unknown] magnesium hydroxide 400 mg/5 mL oral suspension (Milk of Magnesia) 30 ml PO DAILY PRN Constipation 01/31/22 [History Last Taken Unknown] mineral oil 118 ml OK DAILY PRN Constipation 01/31/22 [History Last Taken Unknown] ondansetron HCl 4 mg tablet 4 mg PO Q6H PRN Nausea And Vomiting 01/31/22 [History Last Taken Unknown] polyethylene glycol 3350 17 gram/dose oral powder 17 g PO DAILY 01/31/22 [History Last Taken Unknown] Allergy/AdvReac Type Severity Reaction Status Date / Time codeine Allergy Unknown Hives Verified 01/31/22 17:30 cefazolin Allergy Rash Verified 01/31/22 17:30 ciprofloxacin [From Cipro] Allergy Hives Verified 01/31/22 17:30 ciprofloxacin HCl Allergy Hives Verified 01/31/22 17:30 [From Cipro] Latex, Natural Rubber Allergy Rash Verified 01/31/22 17:30 Penicillins [PCN] Allergy Hives Verified 01/31/22 17:30 vancomycin Allergy Angioedema Verified 01/31/22 17:30 adhesive tape AdvReac Rash Verified 01/31/22 17:30 Family History Father Heart disease Cancer prostate Mother Hypertension Cancer mets but unsure where to Breast cancer Brother Diabetes Hypertension Surgical History History of cataract surgery History of cholecystectomy History of coronary artery bypass surgery (~01/02/11) History of hernia repair History of tonsillectomy and adenoidectomy History of total hysterectomy Presence of coronary angioplasty implant and graft (~08/29/12) S/P percutaneous endoscopic gastrostomy (PEG) tube placement Social History housing: senior living Smoking Status: Former smoker how long ago did patient quit smokin alcohol intake: never substance use type: does not use caffeine: Yes Type: coffee Number of servings: 1 additional social history: DOES NOT USE ASPIRIN DOES US IBUPROFEN ROS ROS ED Review of Systems ROS Unobtainable: other Constitutional Constitutional ED: Reports lethargy; Denies chills, fever(s), sweats or weight loss Eyes Eyes: Denies blurry vision, change in vision or diplopia ENT ENT ED: Denies rhinorrhea or sore throat Cardiovascular Cardiovascular: Denies chest pain, orthopnea or racing heartbeat Respiratory/Chest Respiratory/Chest: Denies cough, dyspnea, dyspnea on exertion, orthopnea or sputum Gastrointestinal Gastrointestinal: Reports abdominal pain; Denies diarrhea, nausea or vomiting Genitourinary Genitourinary ED: Reports dysuria; Denies hematuria or urinary frequency Musculoskeletal Musculoskeletal: Denies arthralgias, back pain, myalgias or neck pain Integumentary Denies abscess, Abrasions or rash Neurologic Neurologic: Denies headache(s) or weakness Psychiatric Psychiatric: Denies anxiety, depression or suicidal thoughts Endocrine Endocrinology: Denies polydipsia, polyphagia or polyuria Hematologic/Lymphatic Hematologic/Lymphatic: Denies easy bleeding, easy bruising or lymphadenopathy Allergic/Immunologic Allergic/Immunologic ED: Denies mouth swelling, tongue swelling or urticaria EXAM Physical Exam Const Vital Signs: 01/31/22 17:31 01/31/22 19:50 01/31/22 21:22 Temperature 101.9 F H Temperature Source Oral Pulse Rate 103 H 98 73 Respiratory Rate 14 24 H 24 H Blood Pressure 149/77 H 106/91 H 176/70 H Blood Pressure Mean 101 96 105 Pulse Ox 95 92 Oxygen Delivery Method Room Air Nasal Cannula Oxygen Flow Rate (L/min) 2 Positive well nourished and well developed General Appearance ED: well developed and NAD HEENT Reports TM's clear and moist mucous membranes normocephalic and atraumatic; Negative for trauma or tenderness Tympanic Membrane ED: Yes TM's clear Eyes PERRL and EOMs intact bilaterally General Eye ED: Negative for pale conjunctiva or scleral icterus Neck no lymphadenopathy, supple and no JVD General: Negative for tenderness Chest Wall inspection of chest normal and palpation of chest normal Chest: Negative for tenderness Resp normal respiratory effort and clear to auscultation bilaterally Effort and Inspection: Negative for respiratory distress or pain with movement Auscultation: Negative for rhonchi, wheezes or diminished lung sounds Cardio regular rate, regular rhythm, S1 normal heart sound, S2 normal heart sound and no murmurs Peripheral Pulses: pulses 2+ throughout GI normal to inspection, nondistended, normoactive bowel sounds, soft to palpation, non-distended and no masses GI Narrative: Patient has a feeding tube in the central abdomen. Patient has diffuse tenderness palpation. There is no rebound, rigidity, or peritoneal signs. Back/Spine no CVA tenderness and no thoracic nor lumbar tenderness Extremity normal to inspection General Extremety ED: Negative for edema General Extremity: Negative for edema Neuro oriented x3, CN's II-XII intact bilaterally, no sensory deficits noted and gait normal Sensorium / Orientation: awake, alert, oriented to person, oriented to place and oriented to time Motor Exam: strength 5/5 throughout and strength abnormal Psych mental status grossly normal Skin no rashes or lesions noted and no wounds MDM MDM MDM Narrative Medical decision making narrative: Established on arrival. CBC with differential record of 14.5 and hemoglobin 10.9. Chemistries unremarkable other than a slightly depressed potassium of 3.3. Lactate was elevated 2.4. LFTs were essentially unremarkable. Urinalysis positive for 500 leukocyte Estrace and 25-50 WBCs but no bacteria seen. Urine culture was sent. COVID rapid as well as influenza rapid were negative. Chest x-ray was unremarkable. Blood cultures ordered. Patient has multiple drug allergies but source of fever unclear but I suspect could be urine. I did give her p.o. Bactrim as she tells me that she can tolerate p.o.'s even though she has a feeding tube. Case will be discussed with hospitalist evaluate patient for admission. Lab Data Attestation: I reviewed the patient's lab results. Labs: Laboratory Results - last 24 hr 01/31/22 01/31/22 01/31/22 18:43 18:43 18:43 WBC 14.5 H RBC 4.69 Hgb 10.9 L Hct 38.9 MCV 82.9 MCH 23.2 L MCHC 28.0 L RDW Std Deviation 51.5 H RDW Coeff of Carissa 17.2 H Plt Count 325 MPV 9.5 Immature Gran % (Auto) 0.500 Neut % (Auto) 84.8 H Lymph % (Auto) 8.0 L Harvey % (Auto) 5.2 Eos % (Auto) 1.2 Baso % (Auto) 0.3 Absolute Neuts (auto) 12.3 H Absolute Lymphs (auto) 1.16 Nucleated RBC % 0 Sodium 140 Potassium 3.3 L Chloride 100 Carbon Dioxide 34.0 H Anion Gap 6 BUN 13 Creatinine 0.96 Estim Creat Clear Calc 35.25 Est GFR (MDRD) Af Amer 72 Est GFR (MDRD) Non-Af 60 BUN/Creatinine Ratio 13.6 Glucose 191 H Lactic Acid 2.4 H* Calcium 9.0 Total Bilirubin 0.20 AST 14 L ALT 17 Alkaline Phosphatase 126 H Total Protein 7.2 Albumin 2.8 L Globulin 4.4 H Albumin/Globulin Ratio 0.6 L Urine Color Urine Clarity Urine pH Ur Specific [place] Urine Protein Urine Glucose (UA) Urine Ketones Urine Occult Blood Urine Nitrite Urine Bilirubin Urine Urobilinogen Ur Leukocyte Esterase Urine RBC Urine WBC Ur Squamous Epith Cells Urine Bacteria Urine Mucus 01/31/22 20:35 WBC RBC Hgb Hct MCV MCH MCHC RDW Std Deviation RDW Coeff of Carissa Plt Count MPV Immature Gran % (Auto) Neut % (Auto) Lymph % (Auto) Harvey % (Auto) Eos % (Auto) Baso % (Auto) Absolute Neuts (auto) Absolute Lymphs (auto) Nucleated RBC % Sodium Potassium Chloride Carbon Dioxide Anion Gap BUN Creatinine Estim Creat Clear Calc Est GFR (MDRD) Af Amer Est GFR (MDRD) Non-Af BUN/Creatinine Ratio Glucose Lactic Acid Calcium Total Bilirubin AST ALT Alkaline Phosphatase Total Protein Albumin Globulin Albumin/Globulin Ratio Urine Color Straw Urine Clarity Cloudy Urine pH 6.5 Ur Specific [place] 1.010 Urine Protein 100 H Urine Glucose (UA) Normal Urine Ketones Negative Urine Occult Blood 25 H Urine Nitrite Negative Urine Bilirubin Negative Urine Urobilinogen Normal Ur Leukocyte Esterase 500 H Urine RBC 0-5 SEEN Urine WBC 25-50 SEEN Ur Squamous Epith Cells 0-5 SEEN Urine Bacteria 0 SEEN Urine Mucus 0 SEEN Radiography Diagnostic Testing: Clinical Impression(s) from Imaging Studies Chest X-Ray 01/31/22 18:11 IMPRESSION: No active disease. Electronically Signed: Krunal Payne MD at 18:33 EST Reading Location ID and State: [id number] / [employer] Tel , Service support , Abdomen/Pelvis CT 01/31/22 18:45 IMPRESSION: No acute abnormality. Electronically Signed: Krunal Payne MD at 20:12 EST , 1 view chest creatinine interpreted by myself no acute disease process. Radiology in agreement. Discharge Plan Triage Chief Complaint: Abd Pain ED Provider: Chaitanya Blue Dx/Rx/DC Orders Clinical Impression: Fever, Leukocytosis, Abdominal pain, Tachypnea, Acidosis, lactic Prescriptions: No Action albuterol sulfate 2.5 MG/3 ML solution for nebulization 2.5 mg inhalation Q2H PRN PRN (Reason: SOB/Wheezing) 0RF atorvastatin 20 MG tablet 20 mg feeding tube QHS Qty: 0 0RF hydralazine 50 MG tablet 50 mg feeding tube TID Qty: 0 0RF Rx Instructions: hold for bp less than 100/60 apixaban 2.5 MG tablet 5 mg feeding tube BID Qty: 0 0RF amiodarone 200 mg tablet 100 mg G-tube DAILY amlodipine 2.5 mg tablet 2.5 mg feeding tube DAILY duloxetine 30 mg capsule,delayed release(DR/EC) 60 mg PO DAILY Jevity 1.5 Laureano 0.06 gram-1.5 kcal/mL Liquid 250 ml G-tube 4X/DAY Qty: 0 0RF ondansetron HCl 4 mg tablet 4 mg PO Q6H PRN (Reason: Nausea And Vomiting) guaifenesin 100 mg Tablet 600 mg PO Q12H PRN PRN (Reason: Cough) mineral oil Enema 118 ml OK DAILY PRN (Reason: Constipation) magnesium hydroxide [Milk of Magnesia] 400 mg/5 mL Suspension 30 ml PO DAILY PRN (Reason: Constipation) bisacodyl 10 mg Suppository 10 mg OK DAILY PRN (Reason: Constipation) hydroxyzine HCl 25 mg Tablet 25 mg PO Q8 PRN (Reason: ITCHY RASH ON UPPER AND LOWER EXTREMITIES) estradiol 0.01 % (0.1 mg/gram) cream 1 applic VAGINAL QPM d-mannose 500 mg Capsule 2,000 mg PO DAILY furosemide 40 mg tablet 40 mg PO DAILY acetaminophen 325 mg tablet 650 mg PO Q6H PRN (Reason: PAIN AND FEVER) gabapentin 300 mg capsule 300 mg PO BID polyethylene glycol 3350 17 gram/dose powder 17 g PO DAILY carbamazepine 200 mg/10 mL suspension 200 mg PO BID Primary Care Provider: Uriel Mac Referrals: Uriel Mac MD [Primary Care Provider] - Disposition Disposition: Acute Care Hospital [facility]
--- NOTE | 2022-01-31 18:11 | RAD_ITS ---
STUDY: X-RAY CHEST REASON FOR EXAM: Female, 76 years old. fever TECHNIQUE: Single AP portable view of the chest. COMPARISON: 11/22/2021 FINDINGS: Status post median sternotomy. The lungs are clear and expanded. There is no demonstrated pleural abnormality. Normal size heart. Normal mediastinum and alee. Normal visualized pulmonary arteries. Normal visualized aortic arch and descending thoracic aorta. Normal visualized thoracic spine. Normal visualized ribs, clavicles, and shoulders. There is no demonstrated abnormality of the visualized soft tissue structures of the upper abdomen. RAD/Chest 1 View (Portable) IMPRESSION: No active disease. Electronically Signed: Krunal Payne MD at 18:33 EST ,
--- NOTE | 2022-01-31 18:45 | CT_ITS ---
STUDY: CT ABDOMEN AND PELVIS WITHOUT CONTRAST REASON FOR EXAM: Female, 76 years old. abdominal pain RADIATION DOSAGE (If Supplied By Facility): CTDIvol = ( 22.13 ) mGy, DLP = ( 1088.99 ) mGycm TECHNIQUE: Transaxial images were obtained from the dome of the diaphragm to the symphysis pubis without oral contrast, and without intravenous contrast. Sagittal and coronal images were reconstructed. Individualized dose optimization techniques were used for this CT. COMPARISON: 05/03/2021 FINDINGS: The visualized lung bases are unremarkable. Cardiomegaly. Normal liver. There are surgical clips in the gallbladder fossa consistent with a prior cholecystectomy. Normal spleen. Normal pancreas. Normal bilateral adrenal glands. Normal right kidney. Normal left kidney. Percutaneous gastrostomy tube. Normal small intestine. Normal colon. There is non-visualization of the appendix. There is diffuse atherosclerotic calcification of the abdominal aorta, without a demonstrated aneurysm. Normal inferior vena cava. Normal retroperitoneum. Normal urinary bladder. Normal abdominal wall. Mild levoscoliosis lumbar spine with degenerative disc disease. Right femoral neck compression screw. CT/Abdomen/Pelvis without Cont IMPRESSION: No acute abnormality. Electronically Signed: Krunal Payne MD at 20:12 EST ,
[2022-01-31 18:53] LABS: Absolute Lymphocyte Count 1.16 X10^3/uL (0.83-4.51); Absolute Neutrophil Count 12.3 X10^3/uL (2.0-7.7); Basophil# 0.04 X10^3/uL; Basophil% 0.3 % (0-1); Eosinophil# 0.17 X10^3/uL; Eosinophils% 1.2 % (0-5); Hematocrit 38.9 % (37-47); Hemoglobin 10.9 g/dL (12.0-15.0); Lymphocyte # 1.16 X10^3/ul (0.83-4.51); Mean Corpuscular Hgb 23.2 pg (27.0-32.0); Mean Corpuscular Volume 82.9 fL (81-99); Mean Platelet Vol. 9.5 fl (6.2-12.0); Monocyte# 0.75 X10^3/uL; Monocyte% 5.2 % (0-10); NRBC Flagged by Analyzer 0 % (0-5); Neutrophil # 12.33 X10^3/uL (2.7-7.7); Neutrophil % 84.8 % (47-70); Platelet Count 325 K/mm3 (150-450); RBC Distribution Width CV 17.2 % (11.6-14.6); RBC Distribution Width SD 51.5 fl (35.1-43.9); Red Blood Count 4.69 M/mm3 (4.2-5.4); White Blood Count 14.5 K/mm3 (4.4-11.0)
[2022-01-31 19:10] LABS: ALB/GLOB Ratio 0.6 RATIO (0.9-2.4); AST(SGOT) 14 U/L (15-37); Alanine Aminotransfer ALT/SGPT 17 U/L (13-56); Albumin, Serum 2.8 g/dL (3.2-5.0); Alkaline Phosphatase 126 U/L (45-117); Anion Gap 6 (5-15); BUN 13 mg/dL (7-18); BUN/Creat Ratio 13.6 RATIO (10-20); Chloride 100 mmol/L (98-107); Creatinine, Serum 0.96 mg/dL (0.55-1.02); EST Glomerular Filtration Rate 60 mL/min (>60); Est Glom Filt Rate - Afr Amer 72 mL/min (>60); Estimated Creatinine Clearance 35.25 ml/min; Globulin 4.4 g/dL (2.2-4.2); Glucose 191 mg/dL (74-106); Potassium 3.3 mmol/L (3.5-5.1); Protein, Total 7.2 g/dL (6.4-8.2); Sodium Level 140 mmol/L (136-145)
[2022-01-31] MEDS: 0.9% Normal Saline 1,000 ML 150 ML IV (19:11)
--- NOTE | 2022-01-31 19:35 | ED.RN ---
THIS RN TOOK PHONE CALL FROM BISHOP VIZCARRA (PT'S DAUGHTER IN LAW). PT UPDATE GIVEN. Ethel ZACKERY REQUESTS A CALL IF PT IS ADMITTED. PHONE NUMBER IS ON CHART UNDER CONTACTS.
[2022-01-31 19:47] LABS: Lactic Acid 2.4 mmol/L (0.4-1.9)
[2022-01-31 19:50] VITALS: BP 106/91; PULSE 98; RESP 24; O2SAT 92
[2022-01-31 21:04] LABS: Bacteria 0 SEEN /hpf (None Seen); Mucous, Urine 0 SEEN /hpf (<or=2+)
[2022-01-31 21:07] LABS: Color, Urine Straw (Yellow); Glucose, Dipstick Normal (Normal); Ketone-Dipstick Negative (Negative); Leukocyte Esterase-Dipstick 500 /ul (Negative); Nitrite-Dipstick Negative (Negative); Occult Blood-Urine 25 /ul (Negative); Protein-Dipstick 100 mg/dl (Negative); Urine Bilirubin Dipstick Negative (Negative); Urine Clarity Cloudy (Clear); Urine Urobilinogen Normal (Normal); Urine pH 6.5 (5.0 - 8.0)
[2022-01-31 21:22] VITALS: BP 176/70; PULSE 73; RESP 24
[2022-01-31 21:39] LABS: Squamous Epithelial Cells - UA 0-5 SEEN /hpf (5-10); White Blood Cells 25-50 SEEN /hpf (0-5)
[2022-01-31 21:40] LABS: Red Blood Cells-Urine 0-5 SEEN /hpf (0-5)
--- NOTE | 2022-01-31 22:23 | HP.PCM.HOS_ITS ---
HPI - General General Date of Admission: 01/31/22 Date of Service: 01/31/22 Chief Complaint: Abdominal pain, dysuria. HPI Narrative The patient is a 76 y/o F w/ PMHx: PAF, Anxiety and Depression, CKD stage III unclear subtype, Morbid Obesity, Diastolic CHF, HTN, HLD, Dementia unclear type with unclear behavioral disturbance history, Hx BL LE diabetic stasis ulcers, Chronic anemia/Fe deficiency anemia, Hx GI bleed, Multiple Sclerosis, LAURITA, Hx VTE, Chronic dysphagia with PEG but allowed oral intake, Diabetes mellitus type II with neuropathy, CAD s/p CABG and PCI who presents to the [facility] ED on 01/31/22 with history of ongoing lower abdominal discomfort with reported dysuria although patient does report that she does have this chronically with decreased oral intake with occasional nausea but no emesis or any loose stools however she did have onset of fever on day of presentation prompting facility transition to the ED for evaluation. In the ED she does have mild tachypnea but denies feeling short of breath but while in the ED throughout her stay was noted to become more hypoxic requiring oxygen supplementation. Work-up in the ED included T101.9, heart rate 103, BP 149/77, respiratory rate 14, 95% on room air however patient did eventually calm hypoxic in the 80s noted to be 86% on attempted 2 L nasal cannula eventually increased to 4 L nasal cannula with improvement to 98%, CBC with WBC 14.5, hemoglobin 10.9, MCV 82.9, platelets 325 with left shift, CMP with potassium 3.3, carbon oxide 34, glucose 191, lactic acid 2.4, hepatic profile not marked appearing, urinalysis with specific gravity 1.010, urine protein 100, urine occult blood 25, urine nitrite negative, urine leukocyte Estrace 500, urine RBCs 25-50 with no marked urine bacteria, chest x-ray with no acute cardiopulmonary findings, CT abdomen and pelvis with no acute intra- abdominal findings, urine culture pending per ED, blood culture x2 pending per ED, rapid SARS COVID and influenza antigen negative. In the ED patient administered Tylenol 650 mg p.o. x1 as well as Bactrim double strength 1 tablet p.o. x1 secondary to patient's significant allergy history given concerns for possible UTI as current presentation etiology. [facility] Medical History (Updated 02/01/22 @ 03:[address] Magali Monroy MD) Atherosclerotic heart disease of [place] coronary artery without angina pectoris Carcinoma of lip Chronic GI bleeding Dementia Diabetic ulcer of both lower extremities Diastolic CHF Essential hypertension GERD (gastroesophageal reflux disease) History of DVT (deep vein thrombosis) Hyperlipidemia Iron deficiency anemia snf current use of amiodarone Multiple sclerosis LAURITA (obstructive sleep apnea) Paroxysmal atrial fibrillation Peripheral vascular disease Presence of stent in coronary artery (~08/29/12) Restrictive airway disease Swallowing dysfunction Trigeminal neuralgia Type 2 diabetes mellitus Ulcer of left lower extremity with fat layer exposed Ulcer of right lower extremity with fat layer exposed Venous insufficiency of both lower extremities Home Medications albuterol sulfate 2.5 mg/3 mL (0.083 %) solution for nebulization 2.5 mg (3 mL) inhalation Q2H PRN PRN SOB/Wheezing 08/12/19 [Rx Last Taken Unknown] apixaban 2.5 mg tablet 5 mg feeding tube BID DVT #0 tabs 05/07/21 [Rx Last Taken 10/21/20] atorvastatin 20 mg tablet 20 mg feeding tube QHS cholesterol #0 tabs 05/07/21 [Rx Last Taken 10/20/20] hydralazine 50 mg tablet 50 mg feeding tube TID bp #0 tabs 05/07/21 [Rx Last Taken 10/21/20] amiodarone 200 mg tablet 100 mg G-tube DAILY heart 11/22/21 [History Last Taken Unknown] amlodipine 2.5 mg tablet 2.5 mg feeding tube DAILY HTN 11/22/21 [History Last Taken Unknown] duloxetine 30 mg capsule,delayed release 60 mg PO DAILY depression 11/22/21 [History Last Taken Unknown] lactose-reduced food with fiber 0.06 gram-1.5 kcal/mL oral liquid (Jevity 1.5 Laureano) 250 ml G-tube 4X/DAY #0 mL 11/25/21 [Rx Last Taken Unknown] acetaminophen 325 mg tablet 650 mg PO Q6H PRN PAIN AND FEVER 01/31/22 [History Last Taken Unknown] bisacodyl 10 mg rectal suppository 10 mg OH DAILY PRN Constipation 01/31/22 [History Last Taken Unknown] carbamazepine 200 mg/10 mL oral suspension 200 mg PO BID 01/31/22 [History Last Taken Unknown] d-mannose 500 mg capsule 2,000 mg PO DAILY 01/31/22 [History Last Taken Unknown] estradiol 0.01% (0.1 mg/gram) vaginal cream 1 applic vaginal QPM UTI 01/31/22 [History Last Taken Unknown] furosemide 40 mg tablet 40 mg PO DAILY 01/31/22 [History Last Taken Unknown] gabapentin 300 mg capsule 300 mg PO BID 01/31/22 [History Last Taken Unknown] guaifenesin 100 mg tablet 600 mg PO Q12H PRN PRN Cough 01/31/22 [History Last Taken Unknown] hydroxyzine HCl 25 mg tablet 25 mg PO Q8 PRN ITCHY RASH ON UPPER AND LOWER EXTREMITIES 01/31/22 [History Last Taken Unknown] magnesium hydroxide 400 mg/5 mL oral suspension (Milk of Magnesia) 30 ml PO DAILY PRN Constipation 01/31/22 [History Last Taken Unknown] mineral oil 118 ml OH DAILY PRN Constipation 01/31/22 [History Last Taken Unknown] ondansetron HCl 4 mg tablet 4 mg PO Q6H PRN Nausea And Vomiting 01/31/22 [History Last Taken Unknown] polyethylene glycol 3350 17 gram/dose oral powder 17 g PO DAILY 01/31/22 [History Last Taken Unknown] Allergy/AdvReac Type Severity Reaction Status Date / Time codeine Allergy Unknown Hives Verified 01/31/22 17:30 cefazolin Allergy Rash Verified 01/31/22 17:30 ciprofloxacin [From Cipro] Allergy Hives Verified 01/31/22 17:30 ciprofloxacin HCl Allergy Hives Verified 01/31/22 17:30 [From Cipro] Latex, Natural Rubber Allergy Rash Verified 01/31/22 17:30 Penicillins [PCN] Allergy Hives Verified 01/31/22 17:30 vancomycin Allergy Angioedema Verified 01/31/22 17:30 adhesive tape AdvReac Rash Verified 01/31/22 17:30 Family History Father Heart disease Cancer prostate Mother Hypertension Cancer mets but unsure where to Breast cancer Brother Diabetes Hypertension Surgical History History of cataract surgery History of cholecystectomy History of coronary artery bypass surgery (~01/02/11) History of hernia repair History of tonsillectomy and adenoidectomy History of total hysterectomy Presence of coronary angioplasty implant and graft (~08/29/12) S/P percutaneous endoscopic gastrostomy (PEG) tube placement Social History housing: care home Smoking Status: Former smoker how long ago did patient quit smokin alcohol intake: never substance use type: does not use caffeine: Yes Type: coffee Number of servings: 1 additional social history: DOES NOT USE ASPIRIN DOES US IBUPROFEN ROS ROS Narrative Admission Review of Systems: CONSTITUTIONAL: No weight loss, + fever, chills, weakness or fatigue. HEENT: Eyes: No visual loss, blurred vision, double vision or yellow sclerae. Ears, Nose, Throat: No hearing loss, sneezing, congestion, runny nose or sore throat. SKIN: + Chronic stasis ulcers. CARDIOVASCULAR: No chest pain, chest pressure or chest discomfort, palpitations, edema, orthopnea, syncopal events. RESPIRATORY: Denies dyspnea but increased RR, hypoxia in the ED, Denies cough or sputum, wheezing, hemoptysis. GASTROINTESTINAL: + anorexia, nausea, suprapubic discomfort, No vomiting or diarrhea, melena, BRBPR. GENITOURINARY: + dysuria, frequency, suprapubic discomfort. NEUROLOGICAL: + MS, dementia. No headache, dizziness, syncope, paralysis, chely yaritza, numbness or tingling in the extremities, focal weakness, change in bowel or bladder control, seizure. MUSCULOSKELETAL: + muscle, back pain, joint pain or stiffness. HEMATOLOGIC: + anemia, bleeding or bruising. LYMPHATICS: No enlarged nodes. No history of splenectomy. PSYCHIATRIC: + history of depression or anxiety. ENDOCRINOLOGIC: No reports of sweating, cold or heat intolerance. No polyuria or polydipsia. ALLERGIES: + history of hives. Vital Signs Vital Signs Vital Signs: 01/31/22 17:31 01/31/22 19:50 01/31/22 21:22 Temperature 101.9 F H Temperature Source Oral Pulse Rate 103 H 98 73 Respiratory Rate 14 24 H 24 H Blood Pressure 149/77 H 106/91 H 176/70 H Blood Pressure Mean 101 96 105 Pulse Ox 95 92 Oxygen Delivery Method Room Air Nasal Cannula Oxygen Flow Rate (L/min) 2 Weight Weight: 201 lb 4.513 oz Body Mass Index (BMI) 39.3 Physical Exam Narrative Physical Examination: General: Awake, alert, oriented x 3 and cooperative, laying in the ED bed, fatigued, ill-appearing, mildly increased respiratory rate but denies any complaint of dyspnea Skin: Normal color, normal turgor, no icterus, no cyanosis except bilateral lower extremity stasis disease, intertrigo,. HEENT: AT/NC, EOMI, PERRLA, dry MM, no carotid bruits or JVD noted; however, habitus makes evaluation. Lungs: Diminished, greater bases, mildly increased respiratory rate but denies any significant complaints no rales, ronchi or wheezing. Heart: Improved, currently regular rate and rhythm; no gallop, rub audible. Abdomen: Soft, morbidly obese, PEG, suprapubic discomfort and discomfort and lower abdominal palpation, intertrigo evident, difficult assess distention given habitus, distant bowel sounds, unable to assess HSM well secondary to habitus. Extremities: No cyanosis, no clubbing, bilateral peripheral nonpitting edema. Neurological: Patient awake, alert, oriented as noted, cognitive function rubio spect baseline intact with chart reported history of dementia unclear type and MS but currently answering questions appropriately; pupils equally reactive to light and accommodation, cranial nerves grossly normal, moving all 4 extremities, no specific focal deficits, strength severely globally decreased. Psychiatric: Affect appears fatigued, no acute evidence of depressive or anxiety feelings but does have underlying history. Results Lab / Micro Data Result Diagrams: 01/31/22 18:43 01/31/22 18:43 Labs: Laboratory Results - last 24 hr 01/31/22 18:43: WBC 14.5 H, RBC 4.69, Hgb 10.9 L, Hct 38.9, MCV 82.9, MCH 23.2 L , MCHC 28.0 L, RDW Std Deviation 51.5 H, RDW Coeff of Carissa 17.2 H, Plt Count 325, MPV 9.5, Immature Gran % (Auto) 0.500, Neut % (Auto) 84.8 H, Lymph % (Auto) 8.0 L, [place] % (Auto) 5.2, Eos % (Auto) 1.2, Baso % (Auto) 0.3, Absolute Neuts (auto) 12.3 H, Absolute Lymphs (auto) 1.16, Nucleated RBC % 0 01/31/22 18:43: Sodium 140, Potassium 3.3 L, Chloride 100, Carbon Dioxide 34.0 H , Anion Gap 6, BUN 13, Creatinine 0.96, Estim Creat Clear Calc 35.25, Est GFR (MDRD) Af Amer 72, Est GFR (MDRD) Non-Af 60, BUN/Creatinine Ratio 13.6, Glucose 191 H, Calcium 9.0, Total Bilirubin 0.20, AST 14 L, ALT 17, Alkaline Phosphatase 126 H, Total Protein 7.2, Albumin 2.8 L, Globulin 4.4 H, Albumin/Globulin Ratio 0.6 L 01/31/22 18:43: Lactic Acid 2.4 H* 01/31/22 20:35: Urine Color Straw, Urine Clarity Cloudy, Urine pH 6.5, Ur Specific [place] 1.010, Urine Protein 100 H, Urine Glucose (UA) Normal, Urine Ketones Negative, Urine Occult Blood 25 H, Urine Nitrite Negative, Urine Bilirubin Negative, Urine Urobilinogen Normal, Ur Leukocyte Esterase 500 H, Urine RBC 0-5 SEEN, Urine WBC 25-50 SEEN, Ur Squamous Epith Cells 0-5 SEEN, Urine Bacteria 0 SEEN, Urine Mucus 0 SEEN Micro: Microbiology 01/31/22 18:31 Nasal Secretion SARS-CoV-2 & FLU Antigen (Rapid) - Final Radiology Impression Chest X-Ray 01/31/22 18:11 IMPRESSION: No active disease. Electronically Signed: Krunal Payne MD at 18:33 EST Reading Location ID and State: [id number] / [employer] Tel , Service support , Abdomen/Pelvis CT 01/31/22 18:45 IMPRESSION: No acute abnormality. Electronically Signed: Krunal Payne MD at 20:12 EST , Assessment & Plan Assessment/Plan (1) Viral syndrome: PLAN: Plan The patient is a 76 y/o F w/ PMHx: PAF, Anxiety and Depression, CKD stage III unclear subtype, Morbid Obesity, Diastolic CHF, HTN, HLD, Dementia unclear type with unclear behavioral disturbance history, Hx BL LE diabetic stasis ulcers, C hronic anemia/Fe deficiency anemia, Hx GI bleed, Multiple Sclerosis, LAURITA, Hx VTE, Chronic dysphagia with PEG but allowed oral intake, Diabetes mellitus type II with neuropathy, CAD s/p CABG and PCI who presents to the [facility] ED on 01/31/22 with history of ongoing lower abdominal discomfort with reported dysuria although patient does report that she does have this chronically with decreased oral intake with occasional nausea but no emesis or any loose stools however she did have onset of fever on day of presentation prompting facility transition to the ED for evaluation. #1. Acute Hypoxia secondary to Suspected Acute Viral Syndrome: Will admit to the MS, will maintain on oxygen with wean as tolerated to room air, PRN albuterol, HOB, IS parameters w/ pending sputum culture, respiratory full viral panel, COVID PCR and urine antigens, will obtain procalcitonin, as noted #2 will maintain on merrem for possible UTI as etiology but lower suspicion especially given notable respiratory component with hypoxia, continue supportive care, maintain on fall and aspiration precautions, will consult PT/OT/CM for discharge planning as well as ST given dysphagia history and unclear oral intake ability. #2. Lower Suspicion Acute Urinary Tract Infection: Patient does have chronic dysuria issues which are ongoing currently, no suprapubic tenderness, urinalysis not marked appearing however urine culture is pending and given currently no obvious viral source while awaiting respiratory viral panel will maintain on IV Merrem given significant allergy history with ID consultation requested, continu e IVFs, monitor I/Os, de-escalate antibiotic therapies if urine culture unremarkable or transition pending sensitivities and speciation. Bld cx x 2 obtained in the ED. #3. Lactic acidosis, suspected related with #1, possibly #2 although lower suspicion: Suspect likely secondary to hypoxemia, still suspect underlying acute viral syndrome, continue judicious hydration given underlying CHF history, trend lactic acid per facility protocol. #4. Hypokalemia: Admission K+ 3.3, magnesium level requested, supplementation given, repeat level in AM. #5. Intertrigo: We will continue aggressive basic skin care as well as application of topical nystatin and barrier creams. #6. Chronic Kidney Disease Stage III, unclear subtype: Admission BUN/Cr 13/0.9, baseline renal function primarily 0.7-0.9, repeat BMP in AM. #7. Chronic diastolic CHF: Appears compensated, judiciously hydrating given acute presentation, continue patient home Eliquis, statin, Lasix regimen, not an JASMINE inhibitor/ARB or beta-man therapy per current list. #8. PAF: We will continue patient home amiodarone as well as Eliquis regimen. #9. Dementia unclear type with unclear behavioral disturbance history: Possibly related with underlying history of chart reported MS, not on any chronic medications, maintain on fall and aspiration precautions, therapies consulted as noted. #10. Chart reported history of multiple sclerosis: Possibly related to patient's significant decline and skilled facility requirements, maintain on fall and aspiration cautions, therapies including ST/OT/PT as well as case management consulted for discharge planning, continue tube feeds as arranged per facility. #11. Anxiety and depression: We will continue patient home hydroxyzine as well as Cymbalta regimen. #12. Chronic anemia/iron deficiency anemia: Admission hemoglobin 10.9, baseline hemoglobin 10-11, stable, continue to trend. #13. Hypertension: Continue home regimen including Lasix, hydralazine, Norvasc, PRN hydralazine. #14. Hyperlipidemia: We will continue patient on statin therapy. #15. History of VTE: Patient with history of VTE with suspected PE, DVT history, continue patient home Eliquis regimen. #16. Morbid Obesity: Weight loss and lifestyle changes encouraged. #17. LAURITA: CPAP q HS. #18. DVT prophylaxis: SCDs, continue patient home Eliquis regimen. #19. CODE status: Patient BARB is her son and living will is currently in place. Discussed CODE status at length including difference between FULL code, DNR-CCA and DNR-CC status. Following discussions about the differences in these status, requested Full Code status. Advanced Care Planning Face to Face Time: 16 minutes. Charges/Coding Visit Charges OBSV E&M: 97978 Initial observation care L3 Procedures Hospitalists Procedures: 53212 Advncd Care Plan 30 Min
[2022-01-31 22:43] VITALS: BP 111/63; PULSE 95; RESP 26; TEMP 38.3; O2SAT 92
[2022-01-31] MEDS: Acetaminophen 500 MG Tablet 650 MG PO (22:46)
[2022-01-31] MEDS: Smz/Tmp Ds Tablet 1 TABLET PO (22:47)
[2022-01-31 22:50] LABS: Reflex Lactate? Y
[2022-01-31 23:07] VITALS: BP 139/89; PULSE 89; RESP 32; O2SAT 99
--- NOTE | 2022-01-31 23:20 | ED.RN ---
THIS RN CALLED BISHOP VIZCARRA TO GIVE PT UPDATE. CALL TOOK PLACE [id number]. PT'S DAUGHTER IN LAW INFORMED OF PT ADMISSION WELL UPDATED ON PLAN OF CARE.
--- NOTE | 2022-01-31 23:23 | ED.RN ---
THIS RN CALLED [facility] TO INFORM THEM THAT PT WILL BE ADMITTED TO [facility]. CALL TAKEN BY ED AT [id number].
[2022-02-01] VITALS (21 sets, daily range): BP systolic 100–150; BP diastolic 53–75; PULSE 72–95; RESP 16–26; TEMP 36.8–39.2; O2SAT 86–99; BMI 39.3
[2022-02-01 00:17] LABS: Lactic Acid 1.6 mmol/L (0.4-1.9)
[2022-02-01 00:49] LABS: Magnesium 1.9 mg/dL (1.6-2.6)
[2022-02-01] MEDS: 0.9% Normal Saline 1,000 ML 100 ML IV (03:10)
[2022-02-01] MEDS: Potassium Chloride Oral Tablet 20 MEQ 40 MEQ PO ×2 (03:11→18:40)
[2022-02-01] MEDS: Ipratropium/Albuterol Sulfate 3 ML AMPUL.NEB INHALATION ×6 (03:54→20:45)
[2022-02-01] MEDS: hydrALAZINE 50 MG Tablet PO ×3 (05:36→20:33)
[2022-02-01] MEDS: Nystatin Powder 15gm Bottle 1 APPLIC TOPICAL ×3 (05:37→23:45)
[2022-02-01 06:36] LABS: Absolute Lymphocyte Count 1.25 X10^3/uL (0.83-4.51); Absolute Neutrophil Count 10.7 X10^3/uL (2.0-7.7); Basophil# 0.02 X10^3/uL; Basophil% 0.2 % (0-1); Eosinophil# 0.06 X10^3/uL; Eosinophils% 0.5 % (0-5); Hematocrit 35.1 % (37-47); Hemoglobin 10.3 g/dL (12.0-15.0); Lymphocyte # 1.25 X10^3/ul (0.83-4.51); Lymphocyte % 9.4 % (19-41); Mean Corp Hgb Conc 29.3 g/dL (32-36); Mean Corpuscular Hgb 24.2 pg (27.0-32.0); Mean Corpuscular Volume 82.4 fL (81-99); Monocyte# 1.19 X10^3/uL; NRBC Flagged by Analyzer 0 % (0-5); Neutrophil # 10.68 X10^3/uL (2.7-7.7); Neutrophil % 80.3 % (47-70); Platelet Count 292 K/mm3 (150-450); RBC Distribution Width CV 17.1 % (11.6-14.6); RBC Distribution Width SD 50.8 fl (35.1-43.9); Red Blood Count 4.26 M/mm3 (4.2-5.4); White Blood Count 13.3 K/mm3 (4.4-11.0)
[2022-02-01 07:08] LABS: ALB/GLOB Ratio 0.6 RATIO (0.9-2.4); AST(SGOT) 11 U/L (15-37); Alanine Aminotransfer ALT/SGPT 13 U/L (13-56); Albumin, Serum 2.4 g/dL (3.2-5.0); Alkaline Phosphatase 108 U/L (45-117); Anion Gap 4 (5-15); BUN 13 mg/dL (7-18); BUN/Creat Ratio 15.2 RATIO (10-20); Calcium,Total 8.6 mg/dL (8.5-10.1); Chloride 101 mmol/L (98-107); Creatinine, Serum 0.85 mg/dL (0.55-1.02); EST Glomerular Filtration Rate 69 mL/min (>60); Est Glom Filt Rate - Afr Amer 83 mL/min (>60); Estimated Creatinine Clearance 39.81 ml/min; Globulin 3.9 g/dL (2.2-4.2); Glucose 147 mg/dL (74-106); Potassium 3.3 mmol/L (3.5-5.1); Protein, Total 6.3 g/dL (6.4-8.2); Sodium Level 139 mmol/L (136-145)
[2022-02-01] MEDS: Albuterol 2.5 MG/3 ML VIAL.NEB. INHALATION (08:33)
[2022-02-01 08:45] LABS: Bedside Glucose 136 mg/dL (74-106)
[2022-02-01 09:37] LABS: Procalcitonin 0.14 ng/mL (0.00-0.09)
[2022-02-01] MEDS: APIXABAN 5 MG TABLET PO ×2 (10:23→20:34)
[2022-02-01] MEDS: Amiodarone 200 MG Tablet 100 MG GT (10:23)
[2022-02-01] MEDS: amLODIPine 2.5 MG Tablet PO (10:23)
[2022-02-01] MEDS: carBAMazepine 200 MG Tablet PO ×2 (10:24→20:33)
[2022-02-01] MEDS: Furosemide 40 MG Tablet PO (10:24)
[2022-02-01] MEDS: DULoxetine Hcl 60 MG Capsule PO (10:24)
[2022-02-01] MEDS: Polyethylene Glycol 3350 17 GM PACKET PO (10:24)
[2022-02-01] MEDS: Menthol/Lanolin/Calamine/Znox 113 GM Tube 1 APPLIC TOPICAL ×4 (10:26→20:45)
[2022-02-01] MEDS: Jevity 1.5. 1,000 ML Bottle 250 ML GT ×4 (10:27→20:39)
[2022-02-01] MEDS: Gabapentin 300 MG Capsule PO ×2 (10:46→16:32)
[2022-02-01 11:15] LABS: Bedside Glucose 151 mg/dL (74-106)
--- NOTE | 2022-02-01 13:42 | PCM.CONS.GEN ---
Assessment & Plan Assessment/Plan (1) Fever: PLAN: Procal 0.14. Cxr clear. CT abd/pelvis neg. Ucx with less than 1k GNR. UA with 25-50 wbc. Resp pcr panel pending. UAgs neg. On meropenem, feeling better. Suspect viral cause, ok to keep juan luis for now while cxs pending. Will follow, thank you HPI Consult Data Date of Consult: 02/01/22 HPI Narrative Reason for Consultation: fever HPI Narrative: SINA VIZCARRA, is a 76 F with CKD, CHF, obesity, presented 01/31 with acute onset fever, dry cough, fatigue, nausea, lower abd mild pain. Given bactrim in ED, admitted on meropenem. Feeling better today. No dysuria. Full ROS performed and neg except as noted above. 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 Chronic GI bleeding Dementia Diabetic ulcer of both lower extremities Diastolic CHF Essential hypertension GERD (gastroesophageal reflux disease) History of DVT (deep vein thrombosis) Hyperlipidemia Iron deficiency anemia long-term current use of amiodarone Multiple sclerosis LAURITA (obstructive sleep apnea) Paroxysmal atrial fibrillation Peripheral vascular disease Presence of stent in coronary artery (~08/29/12) Restrictive airway disease Swallowing dysfunction Trigeminal neuralgia Type 2 diabetes mellitus Ulcer of left lower extremity with fat layer exposed Ulcer of right lower extremity with fat layer exposed Venous insufficiency of both lower extremities Home Medications albuterol sulfate 2.5 mg/3 mL (0.083 %) solution for nebulization 2.5 mg (3 mL) inhalation Q2H PRN PRN SOB/Wheezing 08/12/19 [Rx Last Taken Unknown] apixaban 2.5 mg tablet 5 mg feeding tube BID DVT #0 tabs 05/07/21 [Rx Last Taken 10/21/20] atorvastatin 20 mg tablet 20 mg feeding tube QHS cholesterol #0 tabs 05/07/21 [Rx Last Taken 10/20/20] hydralazine 50 mg tablet 50 mg feeding tube TID bp #0 tabs 05/07/21 [Rx Last Taken 10/21/20] amiodarone 200 mg tablet 100 mg G-tube DAILY heart 11/22/21 [History Last Taken Unknown] amlodipine 2.5 mg tablet 2.5 mg feeding tube DAILY HTN 11/22/21 [History Last Taken Unknown] duloxetine 30 mg capsule,delayed release 60 mg PO DAILY depression 11/22/21 [History Last Taken Unknown] lactose-reduced food with fiber 0.06 gram-1.5 kcal/mL oral liquid (Jevity 1.5 Laureano) 250 ml G-tube 4X/DAY #0 mL 11/25/21 [Rx Last Taken Unknown] acetaminophen 325 mg tablet 650 mg PO Q6H PRN PAIN AND FEVER 01/31/22 [History Last Taken Unknown] bisacodyl 10 mg rectal suppository 10 mg [place] DAILY PRN Constipation 01/31/22 [History Last Taken Unknown] carbamazepine 200 mg/10 mL oral suspension 200 mg PO BID 01/31/22 [History Last Taken Unknown] d-mannose 500 mg capsule 2,000 mg PO DAILY 01/31/22 [History Last Taken Unknown] estradiol 0.01% (0.1 mg/gram) vaginal cream 1 applic vaginal QPM UTI 01/31/22 [History Last Taken Unknown] furosemide 40 mg tablet 40 mg PO DAILY 01/31/22 [History Last Taken Unknown] gabapentin 300 mg capsule 300 mg PO BID 01/31/22 [History Last Taken Unknown] guaifenesin 100 mg tablet 600 mg PO Q12H PRN PRN Cough 01/31/22 [History Last Taken Unknown] hydroxyzine HCl 25 mg tablet 25 mg PO Q8 PRN ITCHY RASH ON UPPER AND LOWER EXTREMITIES 01/31/22 [History Last Taken Unknown] magnesium hydroxide 400 mg/5 mL oral suspension (Milk of Magnesia) 30 ml PO DAILY PRN Constipation 01/31/22 [History Last Taken Unknown] mineral oil 118 ml NJ DAILY PRN Constipation 01/31/22 [History Last Taken Unknown] ondansetron HCl 4 mg tablet 4 mg PO Q6H PRN Nausea And Vomiting 01/31/22 [History Last Taken Unknown] polyethylene glycol 3350 17 gram/dose oral powder 17 g PO DAILY 01/31/22 [History Last Taken Unknown] Allergy/AdvReac Type Severity Reaction Status Date / Time codeine Allergy Unknown Hives Verified 01/31/22 17:30 cefazolin Allergy Rash Verified 01/31/22 17:30 ciprofloxacin [From Cipro] Allergy Hives Verified 01/31/22 17:30 ciprofloxacin HCl Allergy Hives Verified 01/31/22 17:30 [From Cipro] Latex, Natural Rubber Allergy Rash Verified 01/31/22 17:30 Penicillins [PCN] Allergy Hives Verified 01/31/22 17:30 vancomycin Allergy Angioedema Verified 01/31/22 17:30 adhesive tape AdvReac Rash Verified 01/31/22 17:30 Family History Father Heart disease Cancer prostate Mother Hypertension Cancer mets but unsure where to Breast cancer Brother Diabetes Hypertension Surgical History History of cataract surgery History of cholecystectomy History of coronary artery bypass surgery (~01/02/11) History of hernia repair History of tonsillectomy and adenoidectomy History of total hysterectomy Presence of coronary angioplasty implant and graft (~08/29/12) S/P percutaneous endoscopic gastrostomy (PEG) tube placement Social History housing: longterm Smoking Status: Former smoker how long ago did patient quit smokin alcohol intake: never substance use type: does not use caffeine: Yes Type: coffee Number of servings: 1 additional social history: DOES NOT USE ASPIRIN DOES US IBUPROFEN Physical Exam Const alert and no apparent distress General Appearance: cooperative HEENT normocephalic and head/scalp atraumatic Eyes PERRL and EOMs intact bilaterally Neck supple and No nodes Resp normal air movement and clear to auscultation bilaterally Cardio regular rate and regular rhythm GI soft to palpation, non-tender and non-distended Extremity General Extremity: Negative for edema Skin no rashes or lesions noted Neuro CN's II-XII intact bilaterally Lab / Micro Data Attestation: I reviewed the patient's lab results. Result Diagrams: 02/01/22 05:45 02/01/22 05:45 Labs: Laboratory Results - last 24 hr 01/31/22 18:43: WBC 14.5 H, RBC 4.69, Hgb 10.9 L, Hct 38.9, MCV 82.9, MCH 23.2 L, MCHC 28.0 L, RDW Std Deviation 51.5 H, RDW Coeff of Carissa 17.2 H, Plt Count 325, MPV 9.5, Immature Gran % (Auto) 0.500, Neut % (Auto) 84.8 H, Lymph % (Auto) 8.0 L, [place] % (Auto) 5.2, Eos % (Auto) 1.2, Baso % (Auto) 0.3, Absolute Neuts (auto) 12.3 H, Absolute Lymphs (auto) 1.16, Nucleated RBC % 0 01/31/22 18:43: Sodium 140, Potassium 3.3 L, Chloride 100, Carbon Dioxide 34.0 H, Anion Gap 6, BUN 13, Creatinine 0.96, Estim Creat Clear Calc 35.25, Est GFR (MDRD) Af Amer 72, Est GFR (MDRD) Non-Af 60, BUN/Creatinine Ratio 13.6, Glucose 191 H, Calcium 9.0, Total Bilirubin 0.20, AST 14 L, ALT 17, Alkaline Phosphatase 126 H, Total Protein 7.2, Albumin 2.8 L, Globulin 4.4 H, Albumin/Globulin Ratio 0.6 L 01/31/22 18:43: Lactic Acid 2.4 H* 01/31/22 18:43: Magnesium 1.9 01/31/22 20:35: Urine Color Straw, Urine Clarity Cloudy, Urine pH 6.5, Ur Specific [place] 1.010, Urine Protein 100 H, Urine Glucose (UA) Normal, Urine Ketones Negative, Urine Occult Blood 25 H, Urine Nitrite Negative, Urine Bilirubin Negative, Urine Urobilinogen Normal, Ur Leukocyte Esterase 500 H, Urine RBC 0-5 SEEN, Urine WBC 25-50 SEEN, Ur Squamous Epith Cells 0-5 SEEN, Urine Bacteria 0 SEEN, Urine Mucus 0 SEEN 01/31/22 23:39: Lactic Acid 1.6 02/01/22 00:15: COVID-19 ([facility]) Not Detected 02/01/22 05:45: WBC 13.3 H, RBC 4.26, Hgb 10.3 L, Hct 35.1 L, MCV 82.4, MCH 24.2 L, MCHC 29.3 L, RDW Std Deviation 50.8 H, RDW Coeff of Carissa 17.1 H, Plt Count 292, MPV 10.0, Immature Gran % (Auto) 0.600, Neut % (Auto) 80.3 H, Lymph % (Auto) 9.4 L, [place] % (Auto) 9.0, Eos % (Auto) 0.5, Baso % (Auto) 0.2, Absolute Neuts (auto) 10.7 H, Absolute Lymphs (auto) 1.25, Nucleated RBC % 0 02/01/22 05:45: Sodium 139, Potassium 3.3 L, Chloride 101, Carbon Dioxide 34.0 H, Anion Gap 4 L, BUN 13, Creatinine 0.85, Estim Creat Clear Calc 39.81, Est GFR (MDRD) Af Amer 83, Est GFR (MDRD) Non-Af 69, BUN/Creatinine Ratio 15.2, Glucose 147 H, Calcium 8.6, Total Bilirubin 0.20, AST 11 L, ALT 13, Alkaline Phosphatase 108, Total Protein 6.3 L, Albumin 2.4 L, Globulin 3.9, Albumin/Globulin Ratio 0.6 L 02/01/22 08:26: POC Glucose 136 H 02/01/22 08:53: Procalcitonin 0.14 H 02/01/22 10:57: POC Glucose 151 H Micro: Microbiology 01/31/22 20:35 Urine Catheter - Catheter Urine Culture - Preliminary GNR lactose sales expert 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 Electronically Signed: Krunal Payne MD at 18:33 EST , Abdomen/Pelvis CT 01/31/22 18:45 IMPRESSION: No acute abnormality. Electronically Signed: Krunal aPyne MD at 20:12 EST ,
--- NOTE | 2022-02-01 15:38 | CHAPLAIN ---
Type of Pastoral Visit _x__ Initial Visit ___ Follow-up Visit ___ On-call Visit ___ General Patient Visit ___ Spiritual Assessment ___ Family Conference ___ Bereavement ___ Rapid Response ___ Code Blue ___ Other (describe below) Pastoral Care Referral From _x__ Patient ___ Family ___ Nurse ___ Physician ___ Restaurant Area Director ___ Telecom Network Manager ___ Other (describe below) Sacrament/Intervention ___ Active listening ___ Anointing ___ Roman Catholic ___ Bereavement ___ Communion ___ Aminah exploration ___ ___ Life review _x__ Prayer ___ Reconciliation ___ Sacrament of Sick _x__ Supportive presence ___ Wedding ___ Other (describe below) Pastoral Comments patient has been seen before in previous admissions; pt states she remembers this phys ther; pt states that she just needs a prayer and I always need a prayer; pt talks about the things in her room which are about her room in the [facility]; pt [email or web address] and the [facility] in her [facility]; pt expresses thanks for the visit and concern
[2022-02-01 16:55] LABS: Bedside Glucose 148 mg/dL (74-106)
--- NOTE | 2022-02-01 18:16 | PCM.PN.HOSP ---
Subjective Subjective Patient states she is feeling little bit better. Currently on supplemental oxygen which is not a requirement at the facility however sats are stable in the mid to upper 90s we will try to wean this as tolerated. Patient is on antibiotics with meropenem and having no issues. Work-up is in progress. Plan is for back to her nursing facility when she is medically stable. No specific complaints at this time. Objective Data Objective Data Vital Signs: Vital Signs Temp Pulse Resp BP Pulse Ox O2 Del Method O2 Flow Rate 99.0 F 87 18 150/67 H 98 Nasal Cannula 3 02/01/22 17:25 02/01/22 17:25 02/01/22 17:25 02/01/22 17:25 02/01/22 17:25 02/01/22 17:25 02/01/22 17:25 Oxygen Flow Rate (L/min) 3 Oxygen Delivery Method Nasal Cannula Weight: 91.3 kg Body Mass Index (BMI) 39.3 Intake & Output: Intake and Output for Last 24 Hours 01/30/22 01/31/22 02/01/22 23:59 23:59 23:59 Intake Total 1000 / 1000 1120.00 / 1120.00 Balance 1000 / 1000 1120.00 / 1120.00 Lab / Micro Data Result Diagrams: 02/01/22 05:45 02/01/22 05:45 Labs: Laboratory Results - last 24 hr 01/31/22 18:43: WBC 14.5 H, RBC 4.69, Hgb 10.9 L, Hct 38.9, MCV 82.9, MCH 23.2 L, MCHC 28.0 L, RDW Std Deviation 51.5 H, RDW Coeff of Carissa 17.2 H, Plt Count 325, MPV 9.5, Immature Gran % (Auto) 0.500, Neut % (Auto) 84.8 H, Lymph % (Auto) 8.0 L, [place] % (Auto) 5.2, Eos % (Auto) 1.2, Baso % (Auto) 0.3, Absolute Neuts (auto) 12.3 H, Absolute Lymphs (auto) 1.16, Nucleated RBC % 0 01/31/22 18:43: Sodium 140, Potassium 3.3 L, Chloride 100, Carbon Dioxide 34.0 H, Anion Gap 6, BUN 13, Creatinine 0.96, Estim Creat Clear Calc 35.25, Est GFR (MDRD) Af Amer 72, Est GFR (MDRD) Non-Af 60, BUN/Creatinine Ratio 13.6, Glucose 191 H, Calcium 9.0, Total Bilirubin 0.20, AST 14 L, ALT 17, Alkaline Phosphatase 126 H, Total Protein 7.2, Albumin 2.8 L, Globulin 4.4 H, Albumin/Globulin Ratio 0.6 L 01/31/22 18:43: Lactic Acid 2.4 H* 01/31/22 18:43: Magnesium 1.9 01/31/22 20:35: Urine Color Straw, Urine Clarity Cloudy, Urine pH 6.5, Ur Specific [place] 1.010, Urine Protein 100 H, Urine Glucose (UA) Normal, Urine Ketones Negative, Urine Occult Blood 25 H, Urine Nitrite Negative, Urine Bilirubin Negative, Urine Urobilinogen Normal, Ur Leukocyte Esterase 500 H, Urine RBC 0-5 SEEN, Urine WBC 25-50 SEEN, Ur Squamous Epith Cells 0-5 SEEN, Urine Bacteria 0 SEEN, Urine Mucus 0 SEEN 01/31/22 23:39: Lactic Acid 1.6 02/01/22 00:15: COVID-19 ([facility]) Not Detected 02/01/22 05:45: WBC 13.3 H, RBC 4.26, Hgb 10.3 L, Hct 35.1 L, MCV 82.4, MCH 24.2 L, MCHC 29.3 L, RDW Std Deviation 50.8 H, RDW Coeff of Carissa 17.1 H, Plt Count 292, MPV 10.0, Immature Gran % (Auto) 0.600, Neut % (Auto) 80.3 H, Lymph % (Auto) 9.4 L, [place] % (Auto) 9.0, Eos % (Auto) 0.5, Baso % (Auto) 0.2, Absolute Neuts (auto) 10.7 H, Absolute Lymphs (auto) 1.25, Nucleated RBC % 0 02/01/22 05:45: Sodium 139, Potassium 3.3 L, Chloride 101, Carbon Dioxide 34.0 H, Anion Gap 4 L, BUN 13, Creatinine 0.85, Estim Creat Clear Calc 39.81, Est GFR (MDRD) Af Amer 83, Est GFR (MDRD) Non-Af 69, BUN/Creatinine Ratio 15.2, Glucose 147 H, Calcium 8.6, Total Bilirubin 0.20, AST 11 L, ALT 13, Alkaline Phosphatase 108, Total Protein 6.3 L, Albumin 2.4 L, Globulin 3.9, Albumin/Globulin Ratio 0.6 L 02/01/22 08:26: POC Glucose 136 H 02/01/22 08:53: Procalcitonin 0.14 H 02/01/22 10:57: POC Glucose 151 H 02/01/22 16:34: POC Glucose 148 H Micro: Microbiology 01/31/22 20:35 Urine Catheter - Catheter Urine Culture - Preliminary GNR lactose raw products director 01/31/22 20:35 Urine Catheter - Catheter Legionella Antigen - Final 01/31/22 20:35 Urine Catheter - Catheter Streptococcus pneumoniae Antigen (M - Final 01/31/22 18:31 Nasal Secretion SARS-CoV-2 & FLU Antigen (Rapid) - Final Radiography Diagnostic Testing: Radiology Impression Chest X-Ray 01/31/22 18:11 IMPRESSION: No active disease. Electronically Signed: Krunal Payne MD at 18:33 EST , Abdomen/Pelvis CT 01/31/22 18:45 IMPRESSION: No acute abnormality. Electronically Signed: Krunal Payne MD at 20:12 EST Reading Location ID and State: [id number] / [employer] Tel , Service support , Physical Exam Const alert, no apparent distress and well nourished Constitutional Narrative: The white morbidly obese female sitting up in bed, nursing at bedside, patient appears older than stated age, appropriate but intermittent tangential thought process HEENT head/scalp atraumatic and moist oral mucous membranes HEENT Narrative: Mallampati 3-4, dentition is poor, no thrush Head and Scalp: normocephalic Resp normal respiratory effort, no retractions and no use of accessory muscles Resp Narrative: Diminished at bases bilaterally with improved aeration at the apices, no signs of respiratory distress Auscultation: Negative for crackles, rhonchi or wheezes Cardio regular rate, regular rhythm, S1 normal heart sound, S2 normal heart sound, no murmurs, no rub, no gallops and no clicks GI normal to inspection, nondistended, normoactive bowel sounds, soft to palpation and non-tender GI Narrative: Protuberant abdomen with intertrigo under her pannus Extremity Extremity Narrative: Or lower extremity edema, cap refill is 2+, no cyanosis or clubbing Neuro moves all extremities and no focal motor deficits Neuro Narrative: Severe generalized weakness Speech: speech normal Psych Psych Narrative: Process is somewhat tangential however patient appropriately answers questions Assessment & Plan Assessment/Plan (1) Fever: (2) Leukocytosis: (3) Abdominal pain: (4) Tachypnea: (5) Acidosis, lactic: (6) Hypokalemia: (7) Hypoxia: PLAN: Plan Acute hypoxia -Suspected to be related to viral illness -Pro-Laureano was only 0.14 -Chest x-ray was clear -Unable to perform respiratory viral panel secondary to out of solution -Strep pneumo and Legionella antigens neck live -COVID and flu rapid negative -Patient is currently on 3 L nasal cannula however current FiO2 is 98% -Wean O2 as able -I-S -As needed nebulizers Fever -Work-up thus far unremarkable much of it is still pending -UA possibly suggestive of infection -Blood cultures are pending -Urine culture pending -White count did trend down however it appears that she might be chronically elevated -Patient clinically improved -Continue meropenem for now until work-up has been completed however viral etiology is suspected -ID following Hypokalemia -P.o. potassium -Repeat lab in a.m. -Check a.m. magnesium level Acute on chronic debility -PT/OT consultation -Case management consultation for placement [facility] -May be ready in the next 24 to 48 hours depending on work-up Lactic acidosis -Resolved quickly -Suspect likely related to hypoxia on presentation Intertrigo candidiasis -Topical nystatin and barrier creams -Nursing skin care Hypertension -Continue home hydralazine, Lasix and amlodipine -Continue as needed medications and adjust as needed Hyperlipidemia -Continue atorvastatin CKD stage II -Current serum creatinine 0.8 and appears to be at baseline -Continue to monitor with diuretics Dementia -Type unclear -Not on any chronic medications -Therapy services consulted Chart reported history of MS -Continue therapy services -Tube feeds per facility -She did not appear to be on any chronic medications and is a poor historian PAF -Continue amiodarone -Continue Eliquis History of DVT with suspected PE -Continue home Eliquis Chronic anemia -Counts are stable -No acute issues History of CAD -PCI on 08/29/2012 -Continue home therapy LAURITA -Continue nocturnal CPAP HFpEF -Currently compensated -Continue home Lasix -Sinew home antihypertensives Debility -PT/OT consultation -Speech therapy consultation Obesity -BMI 40.9 -Recommend weight loss -Complicates treatment, prognosis, outcomes Depression -Continue home duloxetine DVT prophylaxis -Continue apixaban as ordered CODE STATUS -Full code Charges/Coding Visit Charges Inpatient E&M: 29445 Subs Hosp L2
[2022-02-01] MEDS: Acetaminophen 325 MG Tablet 650 MG PO (20:08)
[2022-02-01] MEDS: Atorvastatin Calcium 20 MG Tablet PO (20:34)
[2022-02-01 23:30] LABS: Bedside Glucose 223 mg/dL (74-106)
[2022-02-01] MEDS: Insulin Lispro 100 UNIT/ML INSULN.PEN SC (23:49)
[2022-02-02] VITALS (14 sets, daily range): BP systolic 116–145; BP diastolic 46–66; PULSE 77–95; RESP 18–26; TEMP 36.8–37.7; O2SAT 91–99
[2022-02-02] MEDS: Acetaminophen 325 MG Tablet 650 MG PO ×3 (03:39→21:51)
[2022-02-02] MEDS: Nystatin Powder 15gm Bottle 1 APPLIC TOPICAL ×3 (06:51→21:06)
[2022-02-02] MEDS: hydrALAZINE 50 MG Tablet PO ×3 (06:52→21:05)
[2022-02-02 07:00] LABS: Bedside Glucose 135 mg/dL (74-106)
[2022-02-02 07:13] LABS: Absolute Neutrophil Count 5.6 X10^3/uL (2.0-7.7); Basophil# 0.03 X10^3/uL; Basophil% 0.4 % (0-1); Eosinophil# 0.09 X10^3/uL; Eosinophils% 1.2 % (0-5); Hematocrit 31.9 % (37-47); Hemoglobin 9.4 g/dL (12.0-15.0); Lymphocyte % 14.3 % (19-41); Mean Corp Hgb Conc 29.5 g/dL (32-36); Mean Corpuscular Volume 81.6 fL (81-99); Mean Platelet Vol. 9.6 fl (6.2-12.0); Monocyte# 0.82 X10^3/uL; Monocyte% 10.6 % (0-10); NRBC Flagged by Analyzer 0 % (0-5); Neutrophil # 5.61 X10^3/uL (2.7-7.7); Neutrophil % 72.9 % (47-70); Platelet Count 240 K/mm3 (150-450); RBC Distribution Width CV 17.2 % (11.6-14.6); RBC Distribution Width SD 50.7 fl (35.1-43.9); Red Blood Count 3.91 M/mm3 (4.2-5.4); White Blood Count 7.7 K/mm3 (4.4-11.0)
[2022-02-02] MEDS: Ipratropium/Albuterol Sulfate 3 ML AMPUL.NEB INHALATION ×4 (07:27→19:58)
[2022-02-02 07:41] LABS: Anion Gap 3 (5-15); BUN 16 mg/dL (7-18); BUN/Creat Ratio 18.3 RATIO (10-20); Calcium,Total 8.4 mg/dL (8.5-10.1); Chloride 102 mmol/L (98-107); Creatinine, Serum 0.87 mg/dL (0.55-1.02); EST Glomerular Filtration Rate 67 mL/min (>60); Est Glom Filt Rate - Afr Amer 81 mL/min (>60); Glucose 143 mg/dL (74-106); Potassium 3.9 mmol/L (3.5-5.1); Sodium Level 140 mmol/L (136-145)
--- NOTE | 2022-02-02 09:29 | SP.MBSS_ITS ---
Modified Barium Swallow - Patient Information Study Date: 02/02/22 Study Time: 09:25 Direct Billable Minutes: 105 Total Minutes procedure & reportin Diagnosis: Hypoxia (R09.02), Multiple Sclerosis (G35) Referring Physician: Wilma Cortes Reason for Referral: Objectively assess swallow function, assess risk for aspiration, and determine recommendations for least restrictive diet textures and compensatory strategies to improve safety of swallow. Medical History: The patient is a 76-year-old female with PMH including PAF, Anxiety and Dep ression, CKD stage III unclear subtype, Morbid Obesity, Diastolic CHF, HTN, HLD, Dementia unclear type with unclear behavioral disturbance history, Hx BL LE diabetic stasis ulcers, Chronic anemia/Fe deficiency anemia, Hx GI bleed, Multiple Sclerosis, LAURITA, Hx VTE, Chronic dysphagia with PEG but allowed oral intake, Diabetes mellitus type II with neuropathy, CAD s/p CABG and PCI. Pt presented to [facility] ED on 01/31/22 with history of ongoing lower abdominal discomfort with reported dysuria. Pt had fever onset the day of presentation which prompted transition to ED from her SNF. Chest x-ray with no acute cardiopulmonary findings. Pt is being admitted for concerns for UTI, fever, hypoxia, and lactic acidosis amongst other comorbidities. BSE completed 02/01/2022 and immediately following trials of oral intake, the patient experienced increased expiratory wheezing. Due to patient's extensive dysphagia history, FRUIT TRIMMER would like to assess concern for silent aspiration and provide recommendations for safest, least restrictive diet textures. Pt is well known to the ST department at [facility] due to history of oropharyngeal dysphagia. Most recent MBSS 11/25/21 recommended Minced and Moist Textures / Thi n liquids with the following compensatory strategies: Small Bites, Small Sips, Slow Rate, Feed only when alert, Multiple Swallows, Alternate bites/solids and sips/liquids, Sitting upright, Remain sitting upright for 30 minutes after PO intake, Minimize/decrease distractions, Assist with verbal cues to use recommended strategies; Supervision: 1:1 Close Supervision. She was recommended for continued speech therapy for oropharyngeal strengthening, which the patient reports she did continue to participate in at her SNF. Current Diet Ordered: NPO with ice chips and meds crushed in Respiratory Status: Oxygenating on 2L/M nasal cannula - Penetration-Aspiration Scale Penetration-Aspiration Scale: OBJECTIVE ASSESSMENT OF SWALLOW FUNCTION (QUANTITATIVE ? PER TRIAL): PENETRATION / ASPIRATION SCALE (ALVAREZ): 1 = does not enter airway 2 = enters airway/above vocal folds/ejected 3 = enters airway/above vocal folds/not ejected 4 = enters airway/contacts vocal folds/ejected 5 = enters airway/contacts vocal folds/not ejected 6 = enters airway/below vocal folds/ejected 7 = enters airway/below vocal folds/not ejected despite effort 8 = enters airway/below vocal folds/no effort VIDEOFLOROSCOPIC SCALE SCORE (ALVAREZ): Grade I = aspiration of material that has penetrated into the laryngeal vestibule, intact cough reflex Grade II = aspiration < 10 % of the bolus, intact cough reflex Grade III = aspiration of < 10 % of the bolus, reduced cough reflex or aspiration of > 10 % of the bolus, intact cough reflex Grade IV = aspiration of > 10 % of the bolus, reduced cough reflex - Penetration-Aspiration Scale Score Thin Liquid via teaspoon Result: 7= enters airways/below vocal folds/not ejected despite effort - trace aspiration Thin Liquid via teaspoon Trial 2 Result: 7= enters airways/below vocal folds/not ejected despite effort Thin Liquid via small single sip from cup Result: 1= does not enter airway Holt Thick Liquid via small single sip from cup Result: 1= does not enter airway Honey Thick Liquid via small single sip from cup Result: 1= does not enter airway Pudding via teaspoon Result: 1= does not enter airway 02/08 Cookie Result: 1= does not enter airway Thin Liquid via small single sip from cup Trial 2 Result: 8= enters airway/below vocal folds/no effort - trace aspiration Holt Thick Liquid via small single sip from cup Trial 2 Result: 1= does not enter airway Thin Liquid via small single sip from cup Effortful swallow Result: 2= enter airway/above vocal folds/ejected Thin Liquid via small single sip from cup Effortful swallow Trial 2 Result: 1= does not enter airway - Oral Phase Labial Seal: No Labial Escape Tongue Control During Bolus Hold: Posterior escape of less than half of bolus Bolus Preparation/Mastication: Slow prolonged chewing/mashing with complete recollection Bolus Transport/Lingual Motion: Delayed initiation of tongue motion Oral Residue: Trace residue lining oral structures - Pharyngeal Phase Initiation of Pharyngeal Swallow: Bolus head at posterior laryngeal surgace of epiglottis Soft Palate Elevation: No bolus between soft palate and pharyngeal wall Laryngeal Elevation: Partial superior movement thyroid cart/partial apprx aryt- epig petiole Anterior Hyoid Excursion: Partial anterior movement Epiglottic Movement: Complete inversion Laryngeal Vestibule Closure at Height of Swallow: Incomplete; narrow column of air/contrast in laryngeal vestibule Pharyngeal Stripping Wave: Present - complete Tongue Base Retraction: Narrow column of contrast between tongue base & post. pharyngeal wall Pharyngeal Residue: Collection of residue within or on pharyngeal structures - Diagnosis/Impression Diagnosis: Mild oropharyngeal phase dysphagia (R13.12) Impression: The oral phase is primarily marked by... -Decreased bolus control with <1/2 of the bolus spilling posteriorly to the posterior surface of the epiglottis prior to swallow onset observed with thin liquids and cookie trial especially. -Delayed tongue motion for A-P transport -Slowed, but adequate mastication of 1/4 regular textured cookie. The pharyngeal phase is primarily marked by... -Decreased airway closure during the swallow due to mildly decreased anterior hyoid excursion and laryngeal elevation. -Mildly decreased tongue base retraction with resulting mild pharyngeal residues after the swallow. Double swallow effectively cleared pharyngeal residues. -Trace aspiration of thin liquids by tsp. Trace SILENT aspiration of thin liquids via cup. Use of effortful swallow with sips of liquids was effective in decreasing aspiration risk. - Recommendations Diet: Holt-thick Liquids - Mildly Thick Liquids - Soft and Bite Size textures (IDDSI Level 6) Compensatory Strategies: Small Bites, Small Sips, Slow Rate, Multiple Swallows - Encourage double swallows with bites and sips, Sitting upright, Remain sitting upright for 30 minutes after PO intake Supervision: 1:1 Close Supervision Recommend Repeat Modified Barium Swallow: TBD Need for Skilled Speech Therapy Services: Yes Comment: Will recommend the patient for dysphagia therapy to address mild deficits in oropharyngeal swallow function. Will recommend the patient for oropharyngeal strengthening to improve lingual control, laryngeal elevation, hyoid excursion, and tongue base retraction (lingual resistance exercises, CTAR, Shelia, Ramila). The patient would benefit from thorough education regarding diet recommendations and recommended compensatory strategies. Trial thin liquids with FRUIT TRIMMER with use of effortful swallows. At next level of care, would strongly recommend the patient for implementation of [place] Free Water Protocol (FFWP) to encourage hydration and promote incr eased opportunities for swallowing throughout the day. Education Completed: 1. Described result of evaluation. - FRUIT TRIMMER educated patient and RN, Lakisha, in results and recommendations of the MBSS., 7. Pt requires further education on strategies & risks. - Status Active ST Patient: Active - Contact Information [facility] Speech Therapy:: Delma Arteaga M.A. [facility] Speech-Language Pathologist [facility] [address] [place] [address] [email or web address] [phone] 02/02/22 10:31
[2022-02-02] MEDS: DULoxetine Hcl 60 MG Capsule PO (11:13)
[2022-02-02] MEDS: carBAMazepine 200 MG Tablet PO ×2 (11:14→21:05)
[2022-02-02] MEDS: Amiodarone 200 MG Tablet 100 MG GT (11:14)
[2022-02-02] MEDS: amLODIPine 2.5 MG Tablet PO (11:14)
[2022-02-02] MEDS: Furosemide 40 MG Tablet PO (11:14)
[2022-02-02] MEDS: Menthol/Lanolin/Calamine/Znox 113 GM Tube 1 APPLIC TOPICAL ×4 (11:15→21:05)
[2022-02-02] MEDS: Polyethylene Glycol 3350 17 GM PACKET PO (11:15)
[2022-02-02] MEDS: APIXABAN 5 MG TABLET PO ×2 (11:16→21:05)
[2022-02-02] MEDS: Gabapentin 300 MG Capsule PO ×2 (11:20→17:04)
--- NOTE | 2022-02-02 11:22 | CASEMGMT ---
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 Timothy MAYER Digital Producer Original Note: Discharge Grooming Assistant This jingle writer sent patient updates to the [facility] via [facility]. Timothy MAYER Digital Producer
--- NOTE | 2022-02-02 11:56 | CASEMGMT ---
Social Work SW met with pt and introduced self and role of SW. 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 carina Bryson/jon assistant banquet manager notified and to send clinical updates. Plan: [facility], return when medically ready VICENTE Ochoa
[2022-02-02 12:40] LABS: Bedside Glucose 135 mg/dL (74-106)
--- NOTE | 2022-02-02 13:27 | PCM.PN.ID ---
Physical Exam Narrative Not feeling well, having cough/wheezing, some abd pain. No fever. Const alert and no apparent distress Resp Auscultation: rhonchi and wheezes Cardio regular rate and regular rhythm GI soft to palpation, non-tender and non-distended Extremity General Extremity: edema Skin no rashes or lesions noted ID ID: Route of nutrition/ use of supplements: [] Nutritional Intake: [] IV Site: [] Casillas Catheter: [] Assessment & Plan Assessment/Plan (1) Fever: PLAN: Procal 0.14. Cxr clear. CT abd/pelvis neg. Ucx with GNR x2 and GPC. UA with 25-50 wbc. Resp pcr panel neg. UAgs neg. On meropenem, feeling better. Will follow
--- NOTE | 2022-02-02 15:57 | PCM.PN.HOSP ---
Subjective Subjective States she is feeling better. Still having intermittent cough. Oxygen weaned to 2 L. Patient is not oxygen dependent at baseline. Plan is for modified barium swallow today. Patient complains of being cold. Objective Data Objective Data Vital Signs: Vital Signs Temp Pulse Resp BP Pulse Ox O2 Del Method O2 Flow Rate 98.3 F 91 18 116/52 L 91 Room Air 2 02/02/22 15:00 02/02/22 15:00 02/02/22 15:00 02/02/22 15:00 02/02/22 15:00 02/02/22 15:00 02/02/22 15:00 Oxygen Flow Rate (L/min) 2 Oxygen Delivery Method Room Air Weight: 91.263 kg Body Mass Index (BMI) 39.3 Intake & Output: Intake and Output for Last 24 Hours 01/31/22 02/01/22 02/02/22 23:59 23:59 23:59 Intake Total 1000 / 1000 1120.00 / 1120.00 610 / 610 Output Total 600 / 600 800 / 800 Balance 1000 / 1000 520.00 / 520.00 -190 / -190 Lab / Micro Data Result Diagrams: 02/02/22 06:55 02/02/22 06:55 Labs: Laboratory Results - last 24 hr 02/01/22 16:34: POC Glucose 148 H 02/01/22 23:09: POC Glucose 223 H 02/02/22 06:39: POC Glucose 135 H 02/02/22 06:55: WBC 7.7, RBC 3.91 L, Hgb 9.4 L, Hct 31.9 L, MCV 81.6, MCH 24.0 L, MCHC 29.5 L, RDW Std Deviation 50.7 H, RDW Coeff of Carissa 17.2 H, Plt Count 240, MPV 9.6, Immature Gran % (Auto) 0.600, Neut % (Auto) 72.9 H, Lymph % (Auto) 14.3 L, [place] % (Auto) 10.6 H, Eos % (Auto) 1.2, Baso % (Auto) 0.4, Absolute Neuts (auto) 5.6, Absolute Lymphs (auto) 1.10, Nucleated RBC % 0 02/02/22 06:55: Sodium 140, Potassium 3.9, Chloride 102, Carbon Dioxide 35.0 H, Anion Gap 3 L, BUN 16, Creatinine 0.87, Estim Creat Clear Calc 38.90, Est GFR (MDRD) Af Amer 81, Est GFR (MDRD) Non-Af 67, BUN/Creatinine Ratio 18.3, Glucose 143 H, Calcium 8.4 L, Magnesium 2.0 02/02/22 11:56: POC Glucose 135 H Micro: Microbiology 01/31/22 20:35 Urine Catheter - Catheter Urine Culture - Preliminary GNR non ip litigation paralegal GNR lactose ip litigation paralegal Gram positive organism 02/01/22 00:15 Mucosa - Nose Respiratory Panel (PCR) - Final 01/31/22 20:35 Urine Catheter - Catheter Legionella Antigen - Final 01/31/22 20:35 Urine Catheter - Catheter Streptococcus pneumoniae Antigen (M - Final 01/31/22 18:31 Nasal Secretion SARS-CoV-2 & FLU Antigen (Rapid) - Final Physical Exam Const alert, no apparent distress and well nourished Constitutional Narrative: Elderly, white, morbidly obese female sitting up in bed, sleeping at the time of my arrival but awakens easily patient appears older than stated age HEENT head/scalp atraumatic and moist oral mucous membranes HEENT Narrative: Mallampati 3, no thrush Head and Scalp: normocephalic Resp normal respiratory effort, no retractions and no use of accessory muscles Resp Narrative: Diminished at bases bilaterally with improved aeration at the apices, no signs of respiratory distress, few scattered wheezes noted that clears with cough suggestive of mucous bronchioles Auscultation: wheezes; Negative for crackles or rhonchi Cardio regular rate, regular rhythm, S1 normal heart sound, S2 normal heart sound, no murmurs, no rub, no gallops and no clicks GI normal to inspection, nondistended, normoactive bowel sounds, soft to palpation and non-tender GI Narrative: Protuberant abdomen with intertrigo under her pannus, PEG in place Extremity Extremity Narrative: Trace lower extremity edema, cap refill is 2+, no cyanosis or clubbing, significant weakness with lower extremities being very weak Neuro moves all extremities and no focal motor deficits Neuro Narrative: Severe generalized weakness Speech: speech normal Psych affect normal Psych Narrative: Appropriately interactive, eye contact is good Assessment & Plan Assessment/Plan (1) Fever: (2) Leukocytosis: (3) Abdominal pain: (4) Tachypnea: (5) Acidosis, lactic: (6) Hypokalemia: (7) Hypoxia: (8) Dysphagia: PLAN: Plan Acute hypoxia -Possibly viral illness versus aspiration -Pro-Laureano was only 0.14 -Chest x-ray was clear -Respiratory viral panel is negative -Strep pneumo and Legionella antigens negative -COVID and flu rapid negative -Patient has been weaned to 2 L nasal cannula -Continue to wean as able as patient is not on oxygen at baseline -I-S -As needed nebulizers -Speech evaluated and MBS done today and did suggest dysphagia -Diet modified Fever/possible UTI/possible aspiration -Work-up thus far unremarkable much of it is still pending -UA possibly suggestive of infection -Blood cultures are pending -Urine culture shows 3 organisms all with less than the thousand CFU's per mL -Wait identification and ID recommendation for treatment -Suspect this may be colonization -White count did trend down however it appears that she might be chronically elevated -Patient clinically improved -Speech therapy following -White count has normalized -Continue meropenem for now until work-up has been completed however viral etiology is suspected -ID following Hypokalemia -Resolved Mild oropharyngeal phase dysphagia -[place] thick liquids with soft and bite-size textures recommended -Continue speech therapy -Will need outpatient therapy for speech at discharge Acute on chronic debility -PT/OT consultation -Case management consultation for placement back at the [facility] at discharge -May be ready in the next 24 to 48 hours depending on work-up Intertrigo candidiasis -Topical nystatin and barrier creams -Nursing skin care Hypertension -Continue home hydralazine, Lasix and amlodipine -Continue as needed medications and adjust as needed Hyperlipidemia -Continue atorvastatin CKD stage II -Current serum creatinine 0.8 and appears to be at baseline -Continue to monitor with diuretics Dementia -Type unclear -Not on any chronic medications -Therapy services consulted Chart reported history of MS -Continue therapy services -Tube feeds per facility -She did not appear to be on any chronic medications and is a poor historian PAF -Continue amiodarone -Continue Eliquis History of DVT with suspected PE -Continue home Eliquis Chronic anemia -Counts remain stable -No acute issues History of CAD -PCI on 08/29/2012 -Continue home therapy LAURITA -Continue nocturnal CPAP HFpEF -Currently compensated -Continue home Lasix -Sinew home antihypertensives Debility -PT/OT consultation -Speech therapy consultation Obesity -BMI 40.9 -Recommend weight loss -Complicates treatment, prognosis, outcomes Depression -Continue home duloxetine DVT prophylaxis -Continue apixaban as ordered CODE STATUS -Full code Charges/Coding Visit Charges Inpatient E&M: 34397 Subs Hosp L2
[2022-02-02 17:20] LABS: Bedside Glucose 135 mg/dL (74-106)
[2022-02-02] MEDS: Atorvastatin Calcium 20 MG Tablet PO (21:05)
[2022-02-02 21:40] LABS: Bedside Glucose 137 mg/dL (74-106)
[2022-02-02] MEDS: Mupirocin Ointment 22gm Tube 1 APPLIC TOPICAL (21:51)
[2022-02-03] VITALS (14 sets, daily range): BP systolic 109–148; BP diastolic 48–88; PULSE 78–91; RESP 16–21; TEMP 36.5–37.2; O2SAT 92–99
[2022-02-03] MEDS: Ipratropium/Albuterol Sulfate 3 ML AMPUL.NEB INHALATION ×5 (03:01→19:37)
[2022-02-03] MEDS: Mupirocin Ointment 22gm Tube 1 APPLIC TOPICAL ×3 (05:34→20:27)
[2022-02-03] MEDS: hydrALAZINE 50 MG Tablet PO ×3 (05:35→21:49)
[2022-02-03] MEDS: Nystatin Powder 15gm Bottle 1 APPLIC TOPICAL ×3 (05:35→21:34)
[2022-02-03 05:53] LABS: Absolute Lymphocyte Count 1.32 X10^3/uL (0.83-4.51); Absolute Neutrophil Count 3.6 X10^3/uL (2.0-7.7); Basophil# 0.02 X10^3/uL; Basophil% 0.3 % (0-1); Eosinophil# 0.37 X10^3/uL; Eosinophils% 6.2 % (0-5); Hematocrit 30.8 % (37-47); Hemoglobin 8.6 g/dL (12.0-15.0); Lymphocyte # 1.32 X10^3/ul (0.83-4.51); Mean Corp Hgb Conc 27.9 g/dL (32-36); Mean Corpuscular Hgb 23.2 pg (27.0-32.0); Mean Corpuscular Volume 83.2 fL (81-99); Mean Platelet Vol. 10.1 fl (6.2-12.0); Monocyte# 0.67 X10^3/uL; Monocyte% 11.2 % (0-10); NRBC Flagged by Analyzer 0.3 % (0-5); Neutrophil # 3.59 X10^3/uL (2.7-7.7); Neutrophil % 59.8 % (47-70); Platelet Count 240 K/mm3 (150-450); RBC Distribution Width CV 17.2 % (11.6-14.6); RBC Distribution Width SD 52.8 fl (35.1-43.9)
[2022-02-03] MEDS: Acetaminophen 325 MG Tablet 650 MG PO (05:53)
[2022-02-03] MEDS: guaiFENesin 10 ML UDC (200MG/10ML) 20 ML PO (05:53)
[2022-02-03 06:08] LABS: Differential Indicated SCAN CRITERIA MET
[2022-02-03 06:24] LABS: ALB/GLOB Ratio 0.6 RATIO (0.9-2.4); AST(SGOT) 14 U/L (15-37); Alanine Aminotransfer ALT/SGPT 15 U/L (13-56); Albumin, Serum 2.1 g/dL (3.2-5.0); Alkaline Phosphatase 83 U/L (45-117); Anion Gap 2 (5-15); BUN 17 mg/dL (7-18); BUN/Creat Ratio 18.9 RATIO (10-20); Calcium,Total 8.3 mg/dL (8.5-10.1); Chloride 101 mmol/L (98-107); EST Glomerular Filtration Rate 64 mL/min (>60); Est Glom Filt Rate - Afr Amer 78 mL/min (>60); Globulin 3.6 g/dL (2.2-4.2); Glucose 121 mg/dL (74-106); Potassium 3.5 mmol/L (3.5-5.1); Protein, Total 5.7 g/dL (6.4-8.2); Sodium Level 139 mmol/L (136-145)
[2022-02-03 07:25] LABS: Bedside Glucose 126 mg/dL (74-106)
[2022-02-03] MEDS: Amiodarone 200 MG Tablet 100 MG GT (08:48)
[2022-02-03] MEDS: Gabapentin 300 MG Capsule PO ×2 (08:48→17:50)
[2022-02-03] MEDS: amLODIPine 2.5 MG Tablet PO (11:19)
[2022-02-03] MEDS: DULoxetine Hcl 60 MG Capsule PO (11:19)
[2022-02-03] MEDS: APIXABAN 5 MG TABLET PO ×2 (11:20→22:04)
[2022-02-03] MEDS: Furosemide 40 MG Tablet PO (11:21)
[2022-02-03] MEDS: Menthol/Lanolin/Calamine/Znox 113 GM Tube 1 APPLIC TOPICAL ×4 (11:22→21:34)
[2022-02-03] MEDS: carBAMazepine 200 MG Tablet PO ×2 (11:23→22:04)
[2022-02-03] MEDS: Polyethylene Glycol 3350 17 GM PACKET PO (11:23)
[2022-02-03 12:00] LABS: Bedside Glucose 161 mg/dL (74-106)
[2022-02-03] MEDS: Insulin Lispro 100 UNIT/ML INSULN.PEN SC ×2 (13:06→21:45)
--- NOTE | 2022-02-03 14:05 | CASEMGMT ---
Addendum entered by Zuleyma Murray 02/03/22 14:30: JAGDEEP received call from Meli at [facility]. [facility] is able to take the pt with antibiotics and 02. Dr. Cortes updated. Original Note: Social Work Dr. Cortes reports pt will be leaving [facility] with antibiotics and O2 and wants it confirmed with [facility] that pt can return with these. JAGDEEP called [facility] to confirm with [facility]A. Left message, will await return PC. VICENTE Tovar
--- NOTE | 2022-02-03 14:11 | PCM.PN.ID ---
Physical Exam Narrative Still some abd pain, no fever, still some wheezing Const alert and no apparent distress Resp Auscultation: wheezes Cardio regular rate and regular rhythm GI soft to palpation, non-tender and non-distended Skin no rashes or lesions noted ID ID: Route of nutrition/ use of supplements: [] Nutritional Intake: [] IV Site: [] Casillas Catheter: [] Assessment & Plan Assessment/Plan (1) Fever: PLAN: Procal 0.14. Cxr clear. CT abd/pelvis neg. Ucx with GNR, proteus, enterococcus. UA with 25-50 wbc. Resp pcr panel neg. UAgs neg. On meropenem, feeling better. Stop date 02/08/22. Wrote rx. D/w Dr. Cortes Will follow
--- NOTE | 2022-02-03 14:31 | PCM.DC.SUM ---
Providers Date of Admission: 02/01/22 Date of Discharge: 02/03/22 Primary Care Physician: Dr. Uriel Mac MD Consultations 02/01/22 02:28 Consult: Infectious Disease Routine Consulting Provider: Adalid Brown Reason for Consult: ? UTI with notable abx allergies, suspect viral syndrome EMERGENT Consult: No MD Notified: Yes Date Notified: 01/31/22 Time Notified: 07:00 Method of Notification: ED Physician Initiated Method of Consult:: In-Person Reason For Visit: ? UTI, ? VIRAL SYNDROM, LACTIC ACIDOSIS Diagnosis Discharge Diagnosis (1) Fever: Status: Acute Code(s): R50.9 - Fever, unspecified Medications at Discharge Home Medications albuterol sulfate 2.5 mg/3 mL (0.083 %) solution for nebulization 2.5 mg (3 mL) inhalation Q2H PRN PRN SOB/Wheezing 08/12/19 apixaban 2.5 mg tablet 5 mg feeding tube BID DVT #0 tabs 05/07/21 atorvastatin 20 mg tablet 20 mg feeding tube QHS cholesterol #0 tabs 05/07/21 hydralazine 50 mg tablet 50 mg feeding tube TID bp #0 tabs 05/07/21 amiodarone 200 mg tablet 100 mg G-tube DAILY heart 11/22/21 amlodipine 2.5 mg tablet 2.5 mg feeding tube DAILY HTN 11/22/21 duloxetine 30 mg capsule,delayed release 60 mg PO DAILY depression 11/22/21 lactose-reduced food with fiber 0.06 gram-1.5 kcal/mL oral liquid (Jevity 1.5 Laureano) 250 ml G-tube 4X/DAY #0 mL 11/25/21 acetaminophen 325 mg tablet 650 mg PO Q6H PRN PAIN AND FEVER 01/31/22 bisacodyl 10 mg rectal suppository 10 mg AK DAILY PRN Constipation 01/31/22 carbamazepine 200 mg/10 mL oral suspension 200 mg PO BID 01/31/22 d-mannose 500 mg capsule 2,000 mg PO DAILY 01/31/22 estradiol 0.01% (0.1 mg/gram) vaginal cream 1 applic vaginal QPM UTI 01/31/22 furosemide 40 mg tablet 40 mg PO DAILY 01/31/22 gabapentin 300 mg capsule 300 mg PO BID 01/31/22 guaifenesin 100 mg tablet 600 mg PO Q12H PRN PRN Cough 01/31/22 hydroxyzine HCl 25 mg tablet 25 mg PO Q8 PRN ITCHY RASH ON UPPER AND LOWER EXTREMITIES 01/31/22 magnesium hydroxide 400 mg/5 mL oral suspension (Milk of Magnesia) 30 ml PO DAILY PRN Constipation 01/31/22 mineral oil 118 ml AK DAILY PRN Constipation 01/31/22 ondansetron HCl 4 mg tablet 4 mg PO Q6H PRN Nausea And Vomiting 01/31/22 polyethylene glycol 3350 17 gram/dose oral powder 17 g PO DAILY 01/31/22 meropenem 1 gram intravenous solution 1 g IV Q12 4 days #8 ea 02/03/22 mupirocin 2 % topical ointment 1 applic topical TID #0 grams 02/03/22 nystatin 100,000 unit/gram topical powder (Nyamyc) 1 applic topical TID #0 grams 02/03/22 Hospital Course Operations None Procedures EKG and - (Modified barium swallow/CT abdomen pelvis/chest x-ray) Summary of Care Provided Minutes Spent on Discharge: 39 Hospital Course: Ms Ya is a 76-year-old white female with a complex medical history who presented to the emergency department from the nursing facility at which she resides with a chief complaint of dysuria and abdominal pain. The patient has a history of recurrent urinary tract infections. Upon presentation she reported lower abdominal discomfort with dysuria, decreased oral intake with intermittent nausea and fevers. Upon presentation to the emergency department she was noted to be hypoxic and required supplemental oxygen to maintain sats greater than 92%. Work-up in the ED included T101.9, heart rate 103, BP 149/77, respiratory rate 14, 95% on room air however patient did eventually calm hypoxic in the 80s noted to be 86% on attempted 2 L nasal cannula eventually increased to 4 L nasal cannula with improvement to 98%, CBC with WBC 14.5, hemoglobin 10.9, MCV 82.9, platelets 325 with left shift, CMP with potassium 3.3, carbon oxide 34, glucose 191, lactic acid 2.4, hepatic profile not marked appearing, urinalysis with specific gravity 1.010, urine protein 100, urine occult blood 25, urine nitrite negative, urine leukocyte Estrace 500, urine RBCs 25-50 with no marked urine bacteria, chest x-ray with no acute cardiopulmonary findings, CT abdomen and pelvis with no acute intra-abdominal findings, urine culture pending per ED, blood culture x2 pending per ED, rapid SARS COVID and influenza antigen negative.? She was admitted to the medical floor and initiated on meropenem after blood and urine cultures were obtained. Patient has multiple antibiotic allergies. Infectious disease was consulted. 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 Her strep pneumo and Legionella antigens were negative. Blood cultures were negative at 48 hours. Her viral respiratory panel was unremarkable. With her worsening oxygenation status we were concerned about aspiration and speech therapy was consulted. They recommended modified barium swallow which was performed on 02/02/2022. This showed mild oropharyngeal phase dysphagia and a diet of nectar thick liquids and soft and bite-size textures was recommended with compensatory strategies as follows: Small Bites, Small Sips, Slow Rate, Multiple Swallows - Encourage double swallows with bites and sips, Sitting upright, Remain sitting upright for 30 minutes after PO intake. They also recommended one-on-one close supervision with oral intake and ongoing speech therapy after discharge. Patient also has a PEG which can be utilized for supplemental nutrition if oral intake is not adequate. I would recommend to monitor her I's and O's and utilize the PEG if oral intake is less than 50% of recommended diet currently recommended. Her white count normalized with antibiotic treatment and her fever resolved. She was still requiring some supplemental oxygen at the time of discharge at 1 to 2 L more when she was exerting herself and we will continue this and wean as tolerated. ID recommended continuation of meropenem with a stop date of 02/08/2022. She was able to be discharged in stable condition back to the nursing facility on 02/03/2022 on IV broad antibiotics as above and with an altered diet as noted previously. She will need to follow-up with her primary care physician in the next 1 to 2 weeks. 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, patient is getting her bath, appears much improved since admission with less fatigue and alertness General Appearance: cooperative, comfortable and well developed Orientation / Consciousness: awake Exam Limitations: no limitations Nutritional Appearance: morbidly obese HEENT normocephalic, head/scalp atraumatic and moist oral mucous membranes HEENT Narrative: Mild hearing loss, Mallampati 3, no thrush Eyes PERRL and EOMs intact bilaterally Eyes Narrative: Conjunctiva are mildly pale, no scleral icterus Resp normal respiratory effort, no retractions and no use of accessory muscles Resp Narrative: Diminished at bases bilaterally with improved aeration at the apices, no signs of respiratory distress Auscultation: wheezes; Negative for crackles or rhonchi Cardio regular rate, regular rhythm, S1 normal heart sound, S2 normal heart sound, no murmurs, no rub, no gallops and no clicks GI normal to inspection, nondistended, normoactive bowel sounds, soft to palpation and non-tender GI Narrative: Protuberant abdomen with intertrigo under her pannus, PEG in place-slight erythema around PEG site, bumper is not tight, slight amount of drainage Extremity Extremity Narrative: Trace lower extremity edema, cap refill is 2+, no cyanosis or clubbing, significant weakness with lower extremities being very weak Skin skin turgor normal and no jaundice Skin Narrative: Intertrigo yeast under pannus and groin Neuro oriented x3, moves all extremities and no focal motor deficits Neuro Narrative: Severe generalized weakness Speech: speech normal Psych affect normal Psych Narrative: Appropriately interactive, eye contact is good Weight / BMI Weight Weight: 91.263 kg Body Mass Index (BMI) 39.3 ABG / Lab / Microbiology Data Result Diagrams: 02/03/22 05:22 02/03/22 05:22 Laboratory: Laboratory Results - last 24 hr 02/02/22 16:59: POC Glucose 135 H 02/02/22 21:12: POC Glucose 137 H 02/03/22 05:22: WBC 6.0, RBC 3.70 L, Hgb 8.6 L, Hct 30.8 L, MCV 83.2, MCH 23.2 L, MCHC 27.9 L D, RDW Std Deviation 52.8 H, RDW Coeff of Carissa 17.2 H, Plt Count 240, MPV 10.1, Immature Gran % (Auto) 0.500, Neut % (Auto) 59.8, Lymph % (Auto) 22.0, [place] % (Auto) 11.2 H, Eos % (Auto) 6.2 H, Baso % (Auto) 0.3, Absolute Neuts (auto) 3.6, Absolute Lymphs (auto) 1.32, Nucleated RBC % 0.3 02/03/22 05:22: Sodium 139, Potassium 3.5, Chloride 101, Carbon Dioxide 36.0 H, Anion Gap 2 L, BUN 17, Creatinine 0.90, Estim Creat Clear Calc 37.60, Est GFR (MDRD) Af Amer 78, Est GFR (MDRD) Non-Af 64, BUN/Creatinine Ratio 18.9, Glucose 121 H, Calcium 8.3 L, Total Bilirubin 0.20, AST 14 L, ALT 15, Alkaline Phosphatase 83, Total Protein 5.7 L, Albumin 2.1 L, Globulin 3.6, Albumin/Globulin Ratio 0.6 L 02/03/22 07:02: POC Glucose 126 H 02/03/22 11:40: POC Glucose 161 H Microbiology: Microbiology 01/31/22 18:43 Blood Culture (Wb) - Right Hand Blood Culture - Preliminary No growth in 48 hours. 01/31/22 20:35 Urine Catheter - Catheter Urine Culture - Preliminary Proteus mirabilis GNR lactose assistant director of residence life Enterococcus faecalis 01/31/22 20:37 Blood Culture (Wb) - Right Hand Blood Culture - Preliminary 02/01/22 00:15 Mucosa - Nose Respiratory Panel (PCR) - Final 01/31/22 20:35 Urine Catheter - Catheter Legionella Antigen - Final 01/31/22 20:35 Urine Catheter - Catheter Streptococcus pneumoniae Antigen (M - Final 01/31/22 18:31 Nasal Secretion SARS-CoV-2 & FLU Antigen (Rapid) - Final Meaningful Use Info Meaningful Use Diagnoses (Choose all that apply): None applicable Discharge Plan Admission Admit Date/Time: 02/01/22 11:40 Primary Reason for Your Visit: Abdominal pain/dysuria Attending Provider: Wilma Corets Primary Care Provider: Uriel Mac Consulting Providers: Magali Monroy ; Adalid Brown Discharge Orders/Prescriptions Prescriptions: New meropenem 1 gram Recon Soln 1 g IV Q12 4 Days Qty: 8 0RF Rx Instructions: stop date 02/08/22. Dx: complicated uti. mupirocin 2 % Ointment 1 applic topical TID Qty: 0 0RF Protocol: *Topical Application Instructions APPLICATION INSTRUCTIONS: apply to peg site Rx Instructions: Place around PEG site time a total of 7 days nystatin [Nyamyc] 100,000 unit/gram Powder 1 applic topical TID Qty: 0 0RF Protocol: *Topical Application Instructions APPLICATION INSTRUCTIONS: to affected regions Rx Instructions: Placed in affected areas Continued albuterol sulfate 2.5 MG/3 ML solution for nebulization 2.5 mg inhalation Q2H PRN PRN (Reason: SOB/Wheezing) 0RF atorvastatin 20 MG tablet 20 mg feeding tube QHS Qty: 0 0RF hydralazine 50 MG tablet 50 mg feeding tube TID Qty: 0 0RF Rx Instructions: hold for bp less than 100/60 apixaban 2.5 MG tablet 5 mg feeding tube BID Qty: 0 0RF amiodarone 200 mg tablet 100 mg G-tube DAILY amlodipine 2.5 mg tablet 2.5 mg feeding tube DAILY duloxetine 30 mg capsule,delayed release(DR/EC) 60 mg PO DAILY Jevity 1.5 Laureano 0.06 gram-1.5 kcal/mL Liquid 250 ml G-tube 4X/DAY Qty: 0 0RF ondansetron HCl 4 mg tablet 4 mg PO Q6H PRN (Reason: Nausea And Vomiting) guaifenesin 100 mg Tablet 600 mg PO Q12H PRN PRN (Reason: Cough) mineral oil Enema 118 ml AK DAILY PRN (Reason: Constipation) magnesium hydroxide [Milk of Magnesia] 400 mg/5 mL Suspension 30 ml PO DAILY PRN (Reason: Constipation) bisacodyl 10 mg Suppository 10 mg AK DAILY PRN (Reason: Constipation) hydroxyzine HCl 25 mg Tablet 25 mg PO Q8 PRN (Reason: ITCHY RASH ON UPPER AND LOWER EXTREMITIES) estradiol 0.01 % (0.1 mg/gram) cream 1 applic VAGINAL QPM d-mannose 500 mg Capsule 2,000 mg PO DAILY furosemide 40 mg tablet 40 mg PO DAILY acetaminophen 325 mg tablet 650 mg PO Q6H PRN (Reason: PAIN AND FEVER) gabapentin 300 mg capsule 300 mg PO BID polyethylene glycol 3350 17 gram/dose powder 17 g PO DAILY carbamazepine 200 mg/10 mL suspension 200 mg PO BID Referrals / Follow Up: Uriel Mac MD [Primary Care Provider] - Within 1 Week Disposition Disposition (needs filled in before D/C Order can be placed): Alf Facility Charges/Coding Visit Charges Inpatient E&M: 00589 SNF Disch >30 Min
--- NOTE | 2022-02-03 14:48 | PCM.TXEXTCAR ---
Diet Diet Order/Speech Therapy: 02/02/22 10:29 Diet: Consistent Carb - Calorie Controlled Food consistency:: Soft & Bite Sized Liquid Consistency:: Four Points/Mildly Thick Is pt able to select menu?: Yes Diet Comments: Direct Supervision, encourage double swallows How many daily calories?: 1800 calorie Tube Feed: Utilize bolus tube feeds as needed when less than 50% of oral intake Routine Orders/Code Status O2 Liters per Minute: 2 and wean as able O2 Frequency: Continuous Keep PO Greater than or Equal to (%): 92 Routine Lab Work: CBC (In 1 week) and BMP (In 1 week) Code Status: Full Code Suggestions for Active Care Change Position every (hours): 2 Hours to sit in a chair: 2 Times a day to sit in chair: 2 Therapies Physical Therapy: Eval and Treat Occupational Therapy: Eval and Treat Speech Therapy: Eval and Treat Problem/Diagnosis (1) Fever: Status: Acute Code(s): R50.9 - Fever, unspecified Allergies/Procedures Done in Hospital Allergies codeine Allergy (Unknown, Verified 01/31/22 17:30) Hives cefazolin Allergy (Verified 01/31/22 17:30) Rash ciprofloxacin [From Cipro] Allergy (Verified 01/31/22 17:30) Hives ciprofloxacin HCl [From Cipro] Allergy (Verified 01/31/22 17:30) Hives Tolerated Levaquin therapy despite allergy Latex, Natural Rubber Allergy (Verified 01/31/22 17:30) Rash Penicillins [PCN] Allergy (Verified 01/31/22 17:30) Hives vancomycin Allergy (Verified 01/31/22 17:30) Angioedema adhesive tape Adverse Reaction (Verified 01/31/22 17:30) Rash Procedures: - (Modified barium swallow/CT abdomen pelvis) Type of Care/Length of Stay Estimated LOS: More Than 30 Days Type of Care Needed: Intermediate Rehab Potential: Fair Prognosis: Fair Additional Orders/Day of Discharge Day of Discharge: 02/03/22 Dietary and Speech Recommendations Dietitian Recommendations/Changes: Will continue Jevity 1.5 250mL bolus 4x/day w/ 75mL H2O flush before and after each bolus to provide 1500 calories, 63.8 g protein, and 1360mL total fluid/day. Will monitor ability to resume PO diet and adjust tube feeds as indicated. Daily wts. Speech Linguistic Eval Summary: Diagnosis: Mild oropharyngeal phase dysphagia (R13.12) Impression: The oral phase is primarily marked by... -Decreased bolus control with <1/2 of the bolus spilling posteriorly to the posterior surface of the epiglottis prior to swallow onset observed with thin liquids and cookie trial especially. -Delayed tongue motion for A-P transport -Slowed, but adequate mastication of 1/4 regular textured cookie. The pharyngeal phase is primarily marked by... -Decreased airway closure during the swallow due to mildly decreased anterior hyoid excursion and laryngeal elevation. -Mildly decreased tongue base retraction with resulting mild pharyngeal residues after the swallow. Double swallow effectively cleared pharyngeal residues. -Trace aspiration of thin liquids by tsp. Trace SILENT aspiration of thin liquids via cup. Use of effortful swallow with sips of liquids was effective in decreasing aspiration risk. - Recommendations Diet: Four Points-thick Liquids - Mildly Thick Liquids - Soft and Bite Size textures (IDDSI Level 6) Compensatory Strategies: Small Bites, Small Sips, Slow Rate, Multiple Swallows - Encourage double swallows with bites and sips, Sitting upright, Remain sitting upright for 30 minutes after PO intake Supervision: 1:1 Close Supervision Recommend Repeat Modified Barium Swallow: TBD Need for Skilled Speech Therapy Services: Yes Comment: Will recommend the patient for dysphagia therapy to address mild deficits in oropharyngeal swallow function. Will recommend the patient for oropharyngeal strengthening to improve lingual control, laryngeal elevation, hyoid excursion, and tongue base retraction (lingual resistance exercises, CTAR, Shelia, Ramila). The patient would benefit from thorough education regarding diet recommendations and recommended compensatory strategies. Trial thin liquids with BALLOON TESTER with use of effortful swallows. At next level of care, would strongly recommend the patient for implementation of [place] Free Water Protocol (FFWP) to encourage hydration and promote increased opportunities for swallowing throughout the day. Education Completed: 1. Described result of evaluation. - BALLOON TESTER educated patient and RNLakisha, in results and recommendations of the MBSS., 7. Pt requires further education on strategies & risks. Discharge Plan Admission Admit Date/Time: 02/01/22 11:40 Primary Reason for Your Visit: Abdominal pain/dysuria Attending Provider: Wilma Cortes Primary Care Provider: Uriel Mac Consulting Providers: Magali Monroy ; Adalid Brown Discharge Orders/Prescriptions Prescriptions: New meropenem 1 gram Recon Soln 1 g IV Q12 4 Days Qty: 8 0RF Rx Instructions: stop date 02/08/22. Dx: complicated uti. mupirocin 2 % Ointment 1 applic topical TID Qty: 0 0RF Protocol: *Topical Application Instructions APPLICATION INSTRUCTIONS: apply to peg site Rx Instructions: Place around PEG site time a total of 7 days nystatin [Nyamyc] 100,000 unit/gram Powder 1 applic topical TID Qty: 0 0RF Protocol: *Topical Application Instructions APPLICATION INSTRUCTIONS: to affected regions Rx Instructions: Placed in affected areas Continued albuterol sulfate 2.5 MG/3 ML solution for nebulization 2.5 mg inhalation Q2H PRN PRN (Reason: SOB/Wheezing) 0RF atorvastatin 20 MG tablet 20 mg feeding tube QHS Qty: 0 0RF hydralazine 50 MG tablet 50 mg feeding tube TID Qty: 0 0RF Rx Instructions: hold for bp less than 100/60 apixaban 2.5 MG tablet 5 mg feeding tube BID Qty: 0 0RF amiodarone 200 mg tablet 100 mg G-tube DAILY amlodipine 2.5 mg tablet 2.5 mg feeding tube DAILY duloxetine 30 mg capsule,delayed release(DR/EC) 60 mg PO DAILY Jevity 1.5 Laureano 0.06 gram-1.5 kcal/mL Liquid 250 ml G-tube 4X/DAY Qty: 0 0RF ondansetron HCl 4 mg tablet 4 mg PO Q6H PRN (Reason: Nausea And Vomiting) guaifenesin 100 mg Tablet 600 mg PO Q12H PRN PRN (Reason: Cough) mineral oil Enema 118 ml ME DAILY PRN (Reason: Constipation) magnesium hydroxide [Milk of Magnesia] 400 mg/5 mL Suspension 30 ml PO DAILY PRN (Reason: Constipation) bisacodyl 10 mg Suppository 10 mg ME DAILY PRN (Reason: Constipation) hydroxyzine HCl 25 mg Tablet 25 mg PO Q8 PRN (Reason: ITCHY RASH ON UPPER AND LOWER EXTREMITIES) estradiol 0.01 % (0.1 mg/gram) cream 1 applic VAGINAL QPM d-mannose 500 mg Capsule 2,000 mg PO DAILY furosemide 40 mg tablet 40 mg PO DAILY acetaminophen 325 mg tablet 650 mg PO Q6H PRN (Reason: PAIN AND FEVER) gabapentin 300 mg capsule 300 mg PO BID polyethylene glycol 3350 17 gram/dose powder 17 g PO DAILY carbamazepine 200 mg/10 mL suspension 200 mg PO BID Referrals / Follow Up: Uriel Mac MD [Primary Care Provider] - Within 1 Week Disposition Disposition (needs filled in before D/C Order can be placed): Nursing Home Facility
--- NOTE | 2022-02-03 15:35 | CASEMGMT ---
Social Work? JAGDEEP notified pt and pt family of discharge to [facility] today. Pt son and HCPDONNA Dougherty voiced understanding. Set up wheelchair transportation [facility] for 4:15pm. JAGDEEP faxed all discharge orders to [facility] via [employer] and notified of discharge time. SW notified charge nurse of transport time. JAGDEEP made copies of discharge orders and placed on pt chart. Sent original orders in envelope with pt upon discharge.?? Disposition: Return to [facility], intermediate level of care? VICENTE Tovar
[2022-02-03 16:26] LABS: Bedside Glucose 117 mg/dL (74-106)
--- NOTE | 2022-02-03 19:42 | NURSING ---
cash surrender calculator here to place midline.
[2022-02-03] MEDS: 0.9% Saline Lock 10 ML Syringe IV (20:26)
[2022-02-03] MEDS: Atorvastatin Calcium 20 MG Tablet PO (21:49)
[2022-02-03 21:55] LABS: Bedside Glucose 163 mg/dL (74-106)
[2022-02-04 00:15] VITALS: BP 143/67; PULSE 81; RESP 16; TEMP 37.2; O2SAT 95
== END 2022-02-04 00:27 | disposition skilled nursing facility (03) | DRG 866 ==
LOC: ED 22:36 → MS3 02-01 03:24 → MS2 02-01 09:18
PROVIDERS: Admitting Provider Family Medicine; Emergency Provider Emergency Medicine; PCP Family Medicine; Visit Provider Internal Medicine
DX: B34.9 Viral infection, unspecified (principal); E87.20 Acidosis, unspecified; I13.0 Hypertensive heart and chronic kidney disease with heart failure and stage 1 through stage 4 chronic kidney disease, or unspecified chronic kidney disease; I50.32 Chronic diastolic (congestive) heart failure; Z68.41 Body mass index [BMI] 40.0-44.9, adult; N39.0 Urinary tract infection, site not specified; D64.9 Anemia, unspecified; B37.2 Candidiasis of skin and nail; B95.2 Enterococcus as the cause of diseases classified elsewhere; E11.22 Type 2 diabetes mellitus with diabetic chronic kidney disease; I48.0 Paroxysmal atrial fibrillation; E11.40 Type 2 diabetes mellitus with diabetic neuropathy, unspecified; E11.51 Type 2 diabetes mellitus with diabetic peripheral angiopathy without gangrene; I11.0 Hypertensive heart disease with heart failure; F03.90 Unspecified dementia, unspecified severity, without behavioral disturbance, psychotic disturbance, mood disturbance, and anxiety; Z93.1 Gastrostomy status; I25.10 Atherosclerotic heart disease of native coronary artery without angina pectoris; E78.5 Hyperlipidemia, unspecified; G47.33 Obstructive sleep apnea (adult) (pediatric); F41.9 Anxiety disorder, unspecified; L30.4 Erythema intertrigo; E87.6 Hypokalemia; N18.2 Chronic kidney disease, stage 2 (mild); Z87.891 Personal history of nicotine dependence; Z95.5 Presence of coronary angioplasty implant and graft; R09.02 Hypoxemia; Z79.01 Long term (current) use of anticoagulants; F32.A Depression, unspecified; B96.4 Proteus (mirabilis) (morganii) as the cause of diseases classified elsewhere; E66.9 Obesity, unspecified; Z86.718 Personal history of other venous thrombosis and embolism; Z86.711 Personal history of pulmonary embolism; Z87.440 Personal history of urinary (tract) infections; R13.12 Dysphagia, oropharyngeal phase
CPT/HCPCS: 36415; 71045; 74176; 74230; 80048; 80053; 81001; 82962; 83605; 83735; 84145; 85025; 87040; 87077; 87086; 87088; 87186; 87428; 87449; 87633; 87635; 92526; 92610; 92611; 94640; 94668; 94762; 97802; 99251; 99285; J2185; J7030; P9612; A4216; G0463; U0003; U0005

== ENCOUNTER 2022-05-18 22:52 | Emergency (ER) | payer MEDICARE, MEDICAID, SELFPAY ==
[2022-05-18 22:53] VITALS: BP 142/65; PULSE 82; RESP 18; TEMP 37; O2SAT 97; BMI 40.1
--- NOTE | 2022-05-18 23:06 | EKG12_ITS ---
Test Reason : CP Blood Pressure : / mmHG Vent. Rate : 084 BPM Atrial Rate : 084 BPM P-R Int : 164 ms QRS Dur : 080 ms QT Int : 350 ms P-R-T Axes : 064 029 184 degrees QTc Int : 413 ms Normal sinus rhythm Marked ST abnormality, possible inferior subendocardial injury Abnormal ECG Confirmed by MICHELLE CERVANTES ([id number]), editor trade journal BOBBY VELA ([id number]) on 05/23/2022 8:01:00 AM Referred By: Confirmed By:MICHELLE CERVANTES
--- NOTE | 2022-05-18 23:20 | EX.ED.DYSGE1 ---
HPI History of Present Illness Chief Complaint: Chest Pain Informant: patient, EMS and SNF Narrative Narrative: Patient is a 77-year-old female from [facility] with past medical history of peripheral vascular disease/CAD with history of bypass in 2010 and stent placement in 2012. She also has history of type 2 diabetes and paroxysmal atrial fibrillation hypertension hyperlipidemia and is currently on Eliquis. She states that over the last 5 days she will have 2 or 3 episodes a day of left-sided chest discomfort which radiates into her left. She states that symptoms can occur when she is doing physical therapy or even at rest. She states the symptoms will last approximately 5 minutes and then resolve. She states the pain is sharp in nature. She denies any nausea vomiting diaphoresis shortness of breath associated with the pain. As the pains been reoccurring over the last 5 days she requested to come to the hospital for evaluation. 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 Multiple sclerosis LAURITA (obstructive sleep apnea) Paroxysmal atrial fibrillation Peripheral vascular disease Presence of stent in coronary artery (~08/29/12) Restrictive airway disease Swallowing dysfunction Trigeminal neuralgia Type 2 diabetes mellitus Ulcer of left lower extremity with fat layer exposed Ulcer of right lower extremity with fat layer exposed Venous insufficiency of both lower extremities Home Medications albuterol sulfate 2.5 mg/3 mL (0.083 %) solution for nebulization 2.5 mg (3 mL) inhalation Q2H PRN PRN SOB/Wheezing 08/12/19 [Rx Last Taken Unknown] amiodarone 200 mg tablet 100 mg PO DAILY heart 11/22/21 [History Last Taken Unknown] amlodipine 2.5 mg tablet 2.5 mg PO DAILY HTN 11/22/21 [History Last Taken Unknown] duloxetine 30 mg capsule,delayed release 60 mg PO DAILY depression 11/22/21 [History Last Taken Unknown] lactose-reduced food with fiber 0.06 gram-1.5 kcal/mL oral liquid (Jevity 1.5 Laureano) 250 ml G-tube 4X/DAY #0 mL 11/25/21 [Rx Last Taken Unknown] acetaminophen 325 mg tablet 650 mg PO Q6H PRN PAIN AND FEVER 01/31/22 [History Last Taken Unknown] bisacodyl 10 mg rectal suppository 10 mg HI DAILY PRN Constipation 01/31/22 [History Last Taken Unknown] carbamazepine 200 mg/10 mL oral suspension 200 mg PO BID 01/31/22 [History Last Taken Unknown] d-mannose 500 mg capsule 2,000 mg PO DAILY 01/31/22 [History Last Taken Unknown] estradiol 0.01% (0.1 mg/gram) vaginal cream 1 applic vaginal QPM UTI 01/31/22 [History Last Taken Unknown] furosemide 40 mg tablet 40 mg PO DAILY 01/31/22 [History Last Taken Unknown] gabapentin 300 mg capsule 600 mg PO TID 01/31/22 [History Last Taken Unknown] guaifenesin 100 mg tablet 600 mg PO Q12H 01/31/22 [History Last Taken Unknown] hydroxyzine HCl 25 mg tablet 25 mg PO Q8 PRN ITCHY RASH ON UPPER AND LOWER EXTREMITIES 01/31/22 [History Last Taken Unknown] magnesium hydroxide 400 mg/5 mL oral suspension (Milk of Magnesia) 30 ml PO DAILY PRN Constipation 01/31/22 [History Last Taken Unknown] mineral oil 118 ml HI DAILY PRN Constipation 01/31/22 [History Last Taken Unknown] ondansetron HCl 4 mg tablet 4 mg PO Q6H PRN Nausea And Vomiting 01/31/22 [History Last Taken Unknown] polyethylene glycol 3350 17 gram/dose oral powder 17 g PO DAILY 01/31/22 [History Last Taken Unknown] mupirocin 2 % topical ointment 1 applic topical TID #0 grams 02/03/22 [Rx Last Taken Unknown] nystatin 100,000 unit/gram topical powder (Nyamyc) 1 applic topical TID #0 grams 02/03/22 [Rx Last Taken Unknown] apixaban 2.5 mg tablet 5 mg PO BID DVT 05/19/22 [History Last Taken Unknown] atorvastatin 20 mg tablet 20 mg PO QHS cholesterol 05/19/22 [History Last Taken Unknown] hydralazine 50 mg tablet 50 mg PO TID bp 05/19/22 [History Last Taken Unknown] Allergy/AdvReac Type Severity Reaction Status Date / Time codeine Allergy Unknown Hives Verified 05/18/22 23:00 cefazolin Allergy Rash Verified 05/18/22 23:00 ciprofloxacin [From Cipro] Allergy Hives Verified 05/18/22 23:00 ciprofloxacin HCl Allergy Hives Verified 05/18/22 23:00 [From Cipro] Latex, Natural Rubber Allergy Rash Verified 05/18/22 23:00 Penicillins [PCN] Allergy Hives Verified 05/18/22 23:00 vancomycin Allergy Angioedema Verified 05/18/22 23:00 adhesive tape AdvReac Rash Verified 05/18/22 23:00 Family History Father Heart disease Cancer prostate Mother Hypertension Cancer mets but unsure where to Breast cancer Brother Diabetes Hypertension Surgical History History of cataract surgery History of cholecystectomy History of coronary artery bypass surgery (~01/02/11) History of hernia repair History of tonsillectomy and adenoidectomy History of total hysterectomy Presence of coronary angioplasty implant and graft (~08/29/12) S/P percutaneous endoscopic gastrostomy (PEG) tube placement Social History housing: [facility] Smoking Status: Former smoker how long ago did patient quit smokin alcohol intake: never substance use type: does not use caffeine: Yes Type: coffee Number of servings: 1 additional social history: DOES NOT USE ASPIRIN DOES US IBUPROFEN ROS ROS ED Constitutional Constitutional ED: Denies chills or fever(s) ENT ENT ED: Denies sore throat Cardiovascular Cardiovascular: Reports chest pain; Denies palpitations or racing heartbeat Respiratory/Chest Respiratory/Chest: Denies cough or dyspnea Gastrointestinal Gastrointestinal: Denies abdominal pain, diarrhea, nausea or vomiting Genitourinary Genitourinary ED: Denies dysuria Musculoskeletal Musculoskeletal: Denies myalgias Integumentary Denies rash Neurologic Neurologic: Denies headache(s) Hematologic/Lymphatic Hematologic/Lymphatic: Reports easy bleeding and easy bruising EXAM Physical Exam Const Vital Signs: 05/18/22 22:53 05/18/22 22:52 05/18/22 23:52 Temperature 98.6 F Temperature Source Temporal Pulse Rate 82 81 Respiratory Rate 18 19 H Respiratory Effort Normal Non-Labored Blood Pressure 142/65 H 144/46 H Blood Pressure Mean 90 78 Pulse Ox 97 97 Oxygen Delivery Method Nasal Cannula Nasal Cannula Oxygen Flow Rate (L/min) 2 2 05/19/22 00:00 05/19/22 01:00 Temperature 98.2 F Temperature Source Oral Pulse Rate 78 Respiratory Rate 19 H 20 H Respiratory Effort Blood Pressure 119/46 L Blood Pressure Mean 70 Pulse Ox 98 98 Oxygen Delivery Method Nasal Cannula Nasal Cannula Oxygen Flow Rate (L/min) 2 2 Positive well nourished, well developed and obese General Appearance ED: well developed Nutritional Appearance: obese Eyes PERRL and EOMs intact bilaterally Neck supple and no JVD Chest Wall Chest Narrative: No bony deformity or crepitance but there is reproducible chest wall pain along the left anterior region ribs 4-6. Patient states is the same pain she has been experiencing intermittently over the last 5 days There is no overlying erythema or warmth to suggest infection no abrasions or ecchymosis to suggest trauma. Resp normal respiratory effort and clear to auscultation bilaterally Cardio regular rate and regular rhythm Rate: other Other Details: Radial pulses are plus 2 out of 4 bilateral are equal and symmetric Carotid pulses equal and symmetric as well GI normal to inspection, nondistended, normoactive bowel sounds, non-tender, non-distended and no masses GI Narrative: No voluntary guarding or rigidity no pulsatile mass or fluid wave Auscultation: normoactive bowel sounds Palpation: soft Narrative: Rectal tone is normal and stool is brown in color and Hemoccult negative Extremity Extremity Narrative: +2-3 pitting edema that is equal and symmetric with negative Homans' sign bilaterally. Neuro oriented x3 and CN's II-XII intact bilaterally Neuro Narrative: Patient has chronic weakness to bilateral lower legs and does not ambulate at baseline no new weakness or focal deficit noted Sensorium / Orientation: alert Psych mental status grossly normal Skin no rashes or lesions noted MDM MDM MDM Narrative Medical decision making narrative: Patient presented to the ER afebrile and in no acute distress. She is wearing oxygen but states she wears this at night normaly. The patient was sent in for sharp left chest pain that has been intermittent over the last 5 days. Her symptoms are not classic cardiac in nature but she does have a past medical history of CAD requiring stents and bypass so a cardiac work-up was obtained. As the patient is on Eliquis my concern for pulmonary embolus is low and do not feel need to perform a CTA. The patient was pain-free upon arrival and therefore also my concern for dissection is low as patient's pain has been intermittent and at this time she is pain-free without any type of medication. Patient's EKG did show ST segment depression diffusely and when this was compared to previous it is present at that time as well but slightly more dramatic today. However her troponin was normal at 29 with delta only changing by 3 points to a value of 32 which is not clinically significant. Both of these values are lower than her troponins from November 2021. Her hemoglobin is down at 7.4 but 4 months ago it was 8.6 and she is not hypotensive or tachycardic she does not have a GI bleed with the rectal exam being negative and therefore there is no need for blood transfusion as she is above 7 with stable vitals and a Hemoccult negative stool. On reevaluation the patient is resting comfortably and able to sleep. Chest pain remains resolved. Vitals are stable. Therefore at this time with negative work-up and spontaneous resolution of pain as well as the fact that it was reproducible in nature on exam I do not feel this is ACS and patient is otherwise safe to return to the [facility] History & Record Review Discussion w/independent historian: EMS personnel and Patient Lab Data Attestation: I reviewed the patient's lab results. Labs: Laboratory Results - last 24 hr 05/18/22 05/18/22 05/18/22 23:20 23:20 23:20 WBC 12.6 H RBC 3.57 L Hgb 7.4 L Hct 27.0 L MCV 75.6 L MCH 20.7 L MCHC 27.4 L RDW Std Deviation 47.8 H RDW Coeff of Carissa 17.4 H Plt Count 291 MPV 10.4 Immature Gran % (Auto) 1.300 H Neut % (Auto) 65.2 Lymph % (Auto) 25.2 Dewitt % (Auto) 5.9 Eos % (Auto) 2.1 Baso % (Auto) 0.3 Absolute Neuts (auto) 8.2 H Absolute Lymphs (auto) 3.18 Nucleated RBC % 0 PT 15.3 H INR 1.2 APTT 30.6 Sodium 142 Potassium 3.3 L Chloride 103 Carbon Dioxide 35.0 H Anion Gap 4 L BUN 20 H Creatinine 1.11 H Estim Creat Clear Calc 30.00 Est GFR (MDRD) Af Amer 61 Est GFR (MDRD) Non-Af 51 L BUN/Creatinine Ratio 18.0 Glucose 195 H Calcium 8.7 Magnesium 1.7 Troponin I High Sens 29 05/19/22 01:04 WBC RBC Hgb Hct MCV MCH MCHC RDW Std Deviation RDW Coeff of Carissa Plt Count MPV Immature Gran % (Auto) Neut % (Auto) Lymph % (Auto) Dewitt % (Auto) Eos % (Auto) Baso % (Auto) Absolute Neuts (auto) Absolute Lymphs (auto) Nucleated RBC % PT INR APTT Sodium Potassium Chloride Carbon Dioxide Anion Gap BUN Creatinine Estim Creat Clear Calc Est GFR (MDRD) Af Amer Est GFR (MDRD) Non-Af BUN/Creatinine Ratio Glucose Calcium Magnesium Troponin I High Sens 32 Radiography Diagnostic Testing: Clinical Impression(s) from Imaging Studies Chest X-Ray 05/18/22 23:23 IMPRESSION: 1. Low lung volumes limit the exam. 2. Pulmonary vascular congestion. 3. Borderline cardiomegaly. Electronically Signed: Bayron Scott MD at 23:56 EDT , Chest x-ray as interpreted by the emergency medicine physician reveals mild pulmonary vascular congestion without infiltrate or pneumothorax Discharge Plan Triage Chief Complaint: Chest Pain ED Provider: Destin Murguia Dx/Rx/DC Orders Clinical Impression: Nonspecific chest pain, Paroxysmal atrial fibrillation, Type 2 diabetes mellitus, Current use of care home anticoagulation, Chronic anemia Instructions: ED Chest Pain, Uncertain Cause Prescriptions: No Action albuterol sulfate 2.5 MG/3 ML solution for nebulization 2.5 mg inhalation Q2H PRN PRN (Reason: SOB/Wheezing) 0RF amiodarone 200 mg tablet 100 mg PO DAILY amlodipine 2.5 mg tablet 2.5 mg PO DAILY duloxetine 30 mg capsule,delayed release(DR/EC) 60 mg PO DAILY Jevity 1.5 Laureano 0.06 gram-1.5 kcal/mL Liquid 250 ml G-tube 4X/DAY Qty: 0 0RF ondansetron HCl 4 mg tablet 4 mg PO Q6H PRN (Reason: Nausea And Vomiting) guaifenesin 100 mg Tablet 600 mg PO Q12H mineral oil Enema 118 ml HI DAILY PRN (Reason: Constipation) magnesium hydroxide [Milk of Magnesia] 400 mg/5 mL Suspension 30 ml PO DAILY PRN (Reason: Constipation) bisacodyl 10 mg Suppository 10 mg HI DAILY PRN (Reason: Constipation) hydroxyzine HCl 25 mg Tablet 25 mg PO Q8 PRN (Reason: ITCHY RASH ON UPPER AND LOWER EXTREMITIES) estradiol 0.01 % (0.1 mg/gram) cream 1 applic VAGINAL QPM d-mannose 500 mg Capsule 2,000 mg PO DAILY furosemide 40 mg tablet 40 mg PO DAILY acetaminophen 325 mg tablet 650 mg PO Q6H PRN (Reason: PAIN AND FEVER) gabapentin 300 mg capsule 600 mg PO TID polyethylene glycol 3350 17 gram/dose powder 17 g PO DAILY carbamazepine 200 mg/10 mL suspension 200 mg PO BID mupirocin 2 % Ointment 1 applic topical TID Qty: 0 0RF Protocol: *Topical Application Instructions APPLICATION INSTRUCTIONS: apply to peg site Rx Instructions: Place around PEG site time a total of 7 days nystatin [Nyamyc] 100,000 unit/gram Powder 1 applic topical TID Qty: 0 0RF Protocol: *Topical Application Instructions APPLICATION INSTRUCTIONS: to affected regions Rx Instructions: Placed in affected areas atorvastatin 20 MG tablet 20 mg PO QHS hydralazine 50 MG tablet 50 mg PO TID Rx Instructions: hold for bp less than 100/60 apixaban 2.5 MG tablet 5 mg PO BID Primary Care Provider: Uriel Mac Referrals: Uriel Mac MD [Primary Care Provider] - Activity Restrictions/Additional Instructions: Your work-up today does not show any signs of cardiovascular disease as a cause of your chest pain. Your hemoglobin/blood volume is low at 7.4 and this is down the roughly one-point from January 2022. Please have the value rechecked in approximately 1 week to ensure that it is holding stable and that you do not need a blood transfusion. If you have any further concerns or worsening of symptoms please return to the hospital for repeat evaluation. Disposition Disposition: Home, Self Care
--- NOTE | 2022-05-18 23:23 | RAD_ITS ---
EXAM: XR CHEST, 1 VIEW CLINICAL INDICATION: chest pain TECHNIQUE: Frontal view of the chest. This report was created using [employer] report generation technology. COMPARISON: 01/31/2022. FINDINGS: LUNGS AND PLEURAL SPACES: Low lung volumes limit the exam. Pulmonary vascular congestion. No consolidations. No pneumothorax. No effusion. HEART: Borderline cardiomegaly. Status post coronary artery bypass graft. MEDIASTINUM: Central airways and mediastinal contour are unremarkable. BONES/JOINTS: Sternal wires. SOFT TISSUES: Unremarkable. RAD/Chest 1 View (Portable) IMPRESSION: 1. Low lung volumes limit the exam. 2. Pulmonary vascular congestion. 3. Borderline cardiomegaly. Electronically Signed: Bayron Scott MD at 23:56 EDT ,
[2022-05-18 23:34] LABS: Absolute Lymphocyte Count 3.18 X10^3/uL (0.83-4.51); Absolute Neutrophil Count 8.2 X10^3/uL (2.0-7.7); Basophil# 0.04 X10^3/uL; Basophil% 0.3 % (0-1); Eosinophil# 0.27 X10^3/uL; Eosinophils% 2.1 % (0-5); Hemoglobin 7.4 g/dL (12.0-15.0); Lymphocyte # 3.18 X10^3/ul (0.83-4.51); Lymphocyte % 25.2 % (19-41); Mean Corp Hgb Conc 27.4 g/dL (32-36); Mean Corpuscular Hgb 20.7 pg (27.0-32.0); Mean Corpuscular Volume 75.6 fL (81-99); Mean Platelet Vol. 10.4 fl (6.2-12.0); Monocyte# 0.75 X10^3/uL; Monocyte% 5.9 % (0-10); NRBC Flagged by Analyzer 0 % (0-5); Neutrophil # 8.22 X10^3/uL (2.7-7.7); Neutrophil % 65.2 % (47-70); Platelet Count 291 K/mm3 (150-450); RBC Distribution Width CV 17.4 % (11.6-14.6); RBC Distribution Width SD 47.8 fl (35.1-43.9); Red Blood Count 3.57 M/mm3 (4.2-5.4); White Blood Count 12.6 K/mm3 (4.4-11.0)
[2022-05-18] MEDS: Aspirin 325 MG Tablet PO (23:38)
[2022-05-18 23:48] LABS: Anion Gap 4 (5-15); BUN 20 mg/dL (7-18); Calcium,Total 8.7 mg/dL (8.5-10.1); Chloride 103 mmol/L (98-107); Creatinine, Serum 1.11 mg/dL (0.55-1.02); EST Glomerular Filtration Rate 51 mL/min (>60); Est Glom Filt Rate - Afr Amer 61 mL/min (>60); Glucose 195 mg/dL (74-106); Magnesium 1.7 mg/dL (1.6-2.6); Potassium 3.3 mmol/L (3.5-5.1); Sodium Level 142 mmol/L (136-145); Troponin-I HS 29 pg/mL (3.0-54.0)
[2022-05-18 23:52] VITALS: BP 144/46; PULSE 81; RESP 19; O2SAT 97
[2022-05-19] VITALS: RESP 19; O2SAT 98
[2022-05-19 00:13] LABS: International Normalized Ratio 1.2; Partial Thromboplast Time 30.6 Seconds (24.1-36.2); Prothrombin Time (Protime)PT. 15.3 SECONDS (11.7-14.9)
[2022-05-19 01:00] VITALS: BP 119/46; PULSE 78; RESP 20; TEMP 36.8; O2SAT 98
[2022-05-19 01:26] LABS: Troponin-I HS 32 pg/mL (3.0-54.0)
[2022-05-19 02:00] VITALS: BP 121/48; PULSE 73; RESP 19; O2SAT 98
== END 2022-05-19 03:28 | disposition skilled nursing facility (03) ==
PROVIDERS: Emergency Provider Emergency Medicine; PCP Family Medicine; Visit Provider Emergency Medicine
DX: R07.9 Chest pain, unspecified (principal); E11.51 Type 2 diabetes mellitus with diabetic peripheral angiopathy without gangrene; I11.0 Hypertensive heart disease with heart failure; I50.30 Unspecified diastolic (congestive) heart failure; I48.0 Paroxysmal atrial fibrillation; I25.10 Atherosclerotic heart disease of native coronary artery without angina pectoris; Z87.891 Personal history of nicotine dependence; D64.9 Anemia, unspecified; E78.5 Hyperlipidemia, unspecified; Z79.01 Long term (current) use of anticoagulants; Z95.1 Presence of aortocoronary bypass graft; E66.9 Obesity, unspecified; Z95.5 Presence of coronary angioplasty implant and graft
CPT/HCPCS: 71045; 80048; 82274; 83735; 84484; 85025; 85610; 85730; 93005; 99285; A4216

== ENCOUNTER → 2022-05-24 | Outpatient (CLI) | payer MEDICARE, MEDICAID, SELFPAY ==
[2022-05-24] VITALS (8 sets, daily range): BP systolic 111–158; BP diastolic 37–75; PULSE 70–86; RESP 16–18; TEMP 36.2–36.6; O2SAT 99–100; BMI 57.4
[2022-05-24] MEDS: 0.9% NaCl Peripheral Flush Adult/Peds IV (10:00)
[2022-05-24] MEDS: Furosemide 40 MG/4 ML Vial IV (12:26)
== END | disposition home or self-care (01) ==
LOC: MEDOUTP 08:50
PROVIDERS: PCP Family Medicine; Referring Provider Family Medicine; Visit Provider Family Medicine
DX: D64.9 Anemia, unspecified (principal)
CPT/HCPCS: 36415; 36430; 86850; 86900; 86901; 86920; 86922; J7040; P9016; A4216; J1940

== ENCOUNTER 2022-08-17 13:31 | Emergency (ER) | payer MEDICARE, MEDICAID, SELFPAY ==
[2022-08-17 13:32] VITALS: BP 145/57; PULSE 69; RESP 15; TEMP 36.9; O2SAT 96; BMI 39.3
--- NOTE | 2022-08-17 13:55 | EX.ED.DYSGE1 ---
HPI History of Present Illness Chief Complaint: Other, Pain/Inj Informant: patient Narrative Narrative: Patient states she leaned down to grab the remote control for TV and accidentally pulled her feeding tube out. It is unknown exactly what happened because she states it did not actually come out all the way, and no one actually put it back in, a nurse at the facility put a piece of tape on it and sent her here to the emergency department. She denies any complaints right now. She states the tube has been there for over a year. 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 Chronic GI bleeding Dementia Diabetic ulcer of both lower extremities Diastolic CHF Dysphagia Essential hypertension GERD (gastroesophageal reflux disease) History of DVT (deep vein thrombosis) Hyperlipidemia Iron deficiency anemia intermediate current use of amiodarone Multiple sclerosis LAURITA (obstructive sleep apnea) Paroxysmal atrial fibrillation Peripheral vascular disease Presence of stent in coronary artery (~08/29/12) Restrictive airway disease Swallowing dysfunction Trigeminal neuralgia Type 2 diabetes mellitus Ulcer of left lower extremity with fat layer exposed Ulcer of right lower extremity with fat layer exposed Venous insufficiency of both lower extremities Home Medications albuterol sulfate 2.5 mg/3 mL (0.083 %) solution for nebulization 2.5 mg (3 mL) inhalation Q2H PRN PRN SOB/Wheezing 08/12/19 [Rx Last Taken Unknown] amiodarone 200 mg tablet 100 mg PO DAILY heart 11/22/21 [History Last Taken Unknown] amlodipine 2.5 mg tablet 2.5 mg PO DAILY HTN 11/22/21 [History Last Taken Unknown] duloxetine 30 mg capsule,delayed release 60 mg PO DAILY depression 11/22/21 [History Last Taken Unknown] lactose-reduced food with fiber 0.06 gram-1.5 kcal/mL oral liquid (Jevity 1.5 Laureano) 250 ml G-tube 4X/DAY #0 mL 11/25/21 [Rx Last Taken Unknown] acetaminophen 325 mg tablet 650 mg PO Q6H PRN PAIN AND FEVER 01/31/22 [History Last Taken Unknown] bisacodyl 10 mg rectal suppository 10 mg DC DAILY PRN Constipation 01/31/22 [History Last Taken Unknown] carbamazepine 200 mg/10 mL oral suspension 200 mg PO BID 01/31/22 [History Last Taken Unknown] d-mannose 500 mg capsule 2,000 mg PO DAILY 01/31/22 [History Last Taken Unknown] estradiol 0.01% (0.1 mg/gram) vaginal cream 1 applic vaginal QPM UTI 01/31/22 [History Last Taken Unknown] furosemide 40 mg tablet 40 mg PO DAILY 01/31/22 [History Last Taken Unknown] gabapentin 300 mg capsule 600 mg PO TID 01/31/22 [History Last Taken Unknown] guaifenesin 100 mg tablet 600 mg PO Q12H 01/31/22 [History Last Taken Unknown] hydroxyzine HCl 25 mg tablet 25 mg PO Q8 PRN ITCHY RASH ON UPPER AND LOWER EXTREMITIES 01/31/22 [History Last Taken Unknown] magnesium hydroxide 400 mg/5 mL oral suspension (Milk of Magnesia) 30 ml PO DAILY PRN Constipation 01/31/22 [History Last Taken Unknown] mineral oil 118 ml DC DAILY PRN Constipation 01/31/22 [History Last Taken Unknown] ondansetron HCl 4 mg tablet 4 mg PO Q6H PRN Nausea And Vomiting 01/31/22 [History Last Taken Unknown] polyethylene glycol 3350 17 gram/dose oral powder 17 g PO DAILY 01/31/22 [History Last Taken Unknown] mupirocin 2 % topical ointment 1 applic topical TID #0 grams 02/03/22 [Rx Last Taken Unknown] nystatin 100,000 unit/gram topical powder (Nyamyc) 1 applic topical TID #0 grams 02/03/22 [Rx Last Taken Unknown] apixaban 2.5 mg tablet 5 mg PO BID DVT 05/19/22 [History Last Taken Unknown] atorvastatin 20 mg tablet 20 mg PO QHS cholesterol 05/19/22 [History Last Taken Unknown] hydralazine 50 mg tablet 50 mg PO TID bp 05/19/22 [History Last Taken Unknown] Allergy/AdvReac Type Severity Reaction Status Date / Time codeine Allergy Unknown Hives Verified 05/18/22 23:00 cefazolin Allergy Rash Verified 05/18/22 23:00 ciprofloxacin [From Cipro] Allergy Hives Verified 05/18/22 23:00 ciprofloxacin HCl Allergy Hives Verified 05/18/22 23:00 [From Cipro] Latex, Natural Rubber Allergy Rash Verified 05/18/22 23:00 Penicillins [PCN] Allergy Hives Verified 05/18/22 23:00 vancomycin Allergy Angioedema Verified 05/18/22 23:00 adhesive tape AdvReac Rash Verified 05/18/22 23:00 Family History Father Heart disease Cancer prostate Mother Hypertension Cancer mets but unsure where to Breast cancer Brother Diabetes Hypertension Surgical History History of cataract surgery History of cholecystectomy History of coronary artery bypass surgery (~01/02/11) History of hernia repair History of tonsillectomy and adenoidectomy History of total hysterectomy Presence of coronary angioplasty implant and graft (~08/29/12) S/P percutaneous endoscopic gastrostomy (PEG) tube placement Social History housing: intermediate Smoking Status: Former smoker how long ago did patient quit smokin alcohol intake: never substance use type: does not use caffeine: Yes Type: coffee Number of servings: 1 additional social history: DOES NOT USE ASPIRIN DOES US IBUPROFEN ROS ROS ED Constitutional Constitutional ED: Denies chills or fever(s) Gastrointestinal Gastrointestinal: Denies abdominal pain, nausea or vomiting EXAM Physical Exam Const Vital Signs: 08/17/22 13:32 08/17/22 13:42 Temperature 98.4 F Temperature Source Oral Pulse Rate 69 Respiratory Rate 15 Respiratory Effort Normal Non-Labored Respiratory Pattern Normal Blood Pressure 145/57 H Blood Pressure Mean 86 Pulse Ox 96 Oxygen Delivery Method Room Air Positive well developed General Appearance ED: well developed and NAD HEENT Reports moist mucous membranes Neck supple Neck Narrative: FROM Resp normal respiratory effort GI normal to inspection, nondistended, normoactive bowel sounds GI Narrative: Nontender. 18 [place] tube consistent with a Casillas catheter in place in the feeding tube site right abdomen, there is leaking from the tube lumen at the end of it, and from around the tube insertion site. Neuro oriented x3 and CN's II-XII intact bilaterally MDM MDM MDM Narrative Medical decision making narrative: Nurses received report from the facility that she had a 24 [place] feeding tube that was pulled out and left back at the facility. However the patient shows up here with an 18 [place] tube in her abdomen and the patient does not know what happened or how it got there. We called the nursing facility for clarification; it turns out the patient had a 24 [place] G-tube that was removed, and a staff member inserted an 18 [place] Casillas into the hole without inflating the balloon and taped it down and she arrived with that. We did have a 24 [place] G-tube, I remove the 18 [place] Casillas and inserted a 24 [place] G-tube without difficulty. I verified placement with a KUB and Gastrografin, showing good placement 1 view on my interpretation. Procedures Other Procedures Procedure(s): G-tube replacement: Into gastrostomy site, 24 [place] G-tube placed easily and without pain/discomfort. Inflated balloon with 6 cc of water, gauze placed against the insertion site, and flushed easily. Verified placement with KUB 1 view my interpretation with Gastrografin shows good placement in stomach/intestine. Tolerated well no complications. Discharge Plan Triage Chief Complaint: Other, Pain/Inj ED Provider: Kash Cárdenas Dx/Rx/DC Orders Clinical Impression: Dislodged gastrostomy tube Instructions: ED Feeding Tube Replacement Prescriptions: No Action albuterol sulfate 2.5 MG/3 ML solution for nebulization 2.5 mg inhalation Q2H PRN PRN (Reason: SOB/Wheezing) 0RF amiodarone 200 mg tablet 100 mg PO DAILY amlodipine 2.5 mg tablet 2.5 mg PO DAILY duloxetine 30 mg capsule,delayed release(DR/EC) 60 mg PO DAILY Jevity 1.5 Laureano 0.06 gram-1.5 kcal/mL Liquid 250 ml G-tube 4X/DAY Qty: 0 0RF ondansetron HCl 4 mg tablet 4 mg PO Q6H PRN (Reason: Nausea And Vomiting) guaifenesin 100 mg Tablet 600 mg PO Q12H mineral oil Enema 118 ml DC DAILY PRN (Reason: Constipation) magnesium hydroxide [Milk of Magnesia] 400 mg/5 mL Suspension 30 ml PO DAILY PRN (Reason: Constipation) bisacodyl 10 mg Suppository 10 mg DC DAILY PRN (Reason: Constipation) hydroxyzine HCl 25 mg Tablet 25 mg PO Q8 PRN (Reason: ITCHY RASH ON UPPER AND LOWER EXTREMITIES) estradiol 0.01 % (0.1 mg/gram) cream 1 applic VAGINAL QPM d-mannose 500 mg Capsule 2,000 mg PO DAILY furosemide 40 mg tablet 40 mg PO DAILY acetaminophen 325 mg tablet 650 mg PO Q6H PRN (Reason: PAIN AND FEVER) gabapentin 300 mg capsule 600 mg PO TID polyethylene glycol 3350 17 gram/dose powder 17 g PO DAILY carbamazepine 200 mg/10 mL suspension 200 mg PO BID mupirocin 2 % Ointment 1 applic topical TID Qty: 0 0RF Protocol: *Topical Application Instructions APPLICATION INSTRUCTIONS: apply to peg site Rx Instructions: Place around PEG site time a total of 7 days nystatin [Nyamyc] 100,000 unit/gram Powder 1 applic topical TID Qty: 0 0RF Protocol: *Topical Application Instructions APPLICATION INSTRUCTIONS: to affected regions Rx Instructions: Placed in affected areas atorvastatin 20 MG tablet 20 mg PO QHS hydralazine 50 MG tablet 50 mg PO TID Rx Instructions: hold for bp less than 100/60 apixaban 2.5 MG tablet 5 mg PO BID Primary Care Provider: Uriel Mac Referrals: Uriel Mac MD [Primary Care Provider] - As Needed Disposition Disposition: Home, Self Care
--- NOTE | 2022-08-17 14:05 | RAD_ITS ---
STUDY: X-RAY - ABDOMEN/PELVIS REASON FOR EXAM: Female, 77 years old. GT placement TECHNIQUE: Single AP view of the abdomen / pelvis. COMPARISON: None. FINDINGS: 60 cc of Gastrografin was introduced into the PEG tube. The PEG tube is in the stomach. RAD/Abdomen Single View (Portable) IMPRESSION: The PEG tube is in the stomach. Electronically Signed: Milo Hughes MD at 14:38 EDT ,
== END 2022-08-17 15:16 | disposition home or self-care (01) ==
PROVIDERS: Emergency Provider Emergency Medicine; PCP Family Medicine; Visit Provider Emergency Medicine
DX: K94.23 Gastrostomy malfunction (principal); I11.0 Hypertensive heart disease with heart failure; I50.32 Chronic diastolic (congestive) heart failure; E11.9 Type 2 diabetes mellitus without complications; Z87.891 Personal history of nicotine dependence; I25.10 Atherosclerotic heart disease of native coronary artery without angina pectoris; E78.5 Hyperlipidemia, unspecified
CPT/HCPCS: 74018; 99284

== ENCOUNTER → 2022-11-15 | Outpatient (CLI) | payer MEDICARE, MEDICAID, SELFPAY ==
--- NOTE | 2022-11-15 16:00 | MRI_ITS ---
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 FINDINGS: Liver: Unremarkable Gallbladder: Unremarkable Pancreas: 2 cm T1 mildly hyperintense/T2 hyperintense cystic lesion in the head of the pancreas. No enhancement. No main pancreatic duct dilatation. Spleen: Unremarkable Adrenal Glands: Unremarkable Kidneys: Unremarkable GI Tract: Unremarkable Lymphadenopathy: Absent Ascites: Absent Bones: No suspicious lesions MRI/MRI Abd WITH and W/O Contrast IMPRESSION: 2 cm nonenhancing cystic lesion in the head of the pancreas with no main pancreatic duct dilatation. 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 Per ACR white paper criteria, recommend follow-up MRCP in one year. Electronically Signed: Galo Heaton MD at 23:59 EDT ,
== END | disposition home or self-care (01) ==
LOC: MRI 15:30
PROVIDERS: PCP Family Medicine; Referring Provider Nurse Practitioner Family; Visit Provider Nurse Practitioner Family
DX: K86.89 Other specified diseases of pancreas (principal)
CPT/HCPCS: 74183; A9575; A4216

== ENCOUNTER 2022-12-29 07:00 | Emergency (ER) | payer MEDICARE, MEDICAID, SELFPAY ==
[2022-12-29 07:01] VITALS: BP 141/54; PULSE 62; RESP 18; TEMP 36.6; O2SAT 100; BMI 39.6
--- NOTE | 2022-12-29 07:31 | EX.ED.DYSGE1 ---
HPI History of Present Illness Chief Complaint: Other, Pain/Inj Informant: patient and EMS Narrative Narrative: 77-year-old female states that she lives in a assisted and aides were helping her bathe this morning and subsequently her G-tube accidentally came out. This occurred less than an hour ago. They placed it back within the site and sent her here to the emergency department. She denies any pain. She has had no problems with it. She states has been in for maybe 4 months. She has it as a backup because she was having issues with swallowing, but for the most part she eats and drinks without the need for it. 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 Chronic GI bleeding Dementia Diabetic ulcer of both lower extremities Diastolic CHF Dysphagia Essential hypertension GERD (gastroesophageal reflux disease) History of DVT (deep vein thrombosis) Hyperlipidemia Iron deficiency anemia custodial current use of amiodarone Multiple sclerosis LAURITA (obstructive sleep apnea) Paroxysmal atrial fibrillation Peripheral vascular disease Presence of stent in coronary artery (~08/29/12) Restrictive airway disease Swallowing dysfunction Trigeminal neuralgia Type 2 diabetes mellitus Ulcer of left lower extremity with fat layer exposed Ulcer of right lower extremity with fat layer exposed Venous insufficiency of both lower extremities Home Medications albuterol sulfate 2.5 mg/3 mL (0.083 %) solution for nebulization 2.5 mg (3 mL) inhalation Q2H PRN PRN SOB/Wheezing 08/12/19 [Rx Last Taken Unknown] amiodarone 200 mg tablet 100 mg PO DAILY heart 11/22/21 [History Last Taken Unknown] amlodipine 2.5 mg tablet 2.5 mg PO DAILY HTN 11/22/21 [History Last Taken Unknown] duloxetine 30 mg capsule,delayed release 60 mg PO DAILY depression 11/22/21 [History Last Taken Unknown] lactose-reduced food with fiber 0.06 gram-1.5 kcal/mL oral liquid (Jevity 1.5 Laureano) 250 ml G-tube 4X/DAY #0 mL 11/25/21 [Rx Last Taken Unknown] acetaminophen 325 mg tablet 650 mg PO Q6H PRN PAIN AND FEVER 01/31/22 [History Last Taken Unknown] bisacodyl 10 mg rectal suppository 10 mg MI DAILY PRN Constipation 01/31/22 [History Last Taken Unknown] carbamazepine 200 mg/10 mL oral suspension 200 mg PO BID 01/31/22 [History Last Taken Unknown] d-mannose 500 mg capsule 2,000 mg PO DAILY 01/31/22 [History Last Taken Unknown] estradiol 0.01% (0.1 mg/gram) vaginal cream 1 applic vaginal QPM UTI 01/31/22 [History Last Taken Unknown] furosemide 40 mg tablet 40 mg PO DAILY 01/31/22 [History Last Taken Unknown] gabapentin 300 mg capsule 600 mg PO TID 01/31/22 [History Last Taken Unknown] guaifenesin 100 mg tablet 600 mg PO Q12H 01/31/22 [History Last Taken Unknown] hydroxyzine HCl 25 mg tablet 25 mg PO Q8 PRN ITCHY RASH ON UPPER AND LOWER EXTREMITIES 01/31/22 [History Last Taken Unknown] magnesium hydroxide 400 mg/5 mL oral suspension (Milk of Magnesia) 30 ml PO DAILY PRN Constipation 01/31/22 [History Last Taken Unknown] mineral oil 118 ml MI DAILY PRN Constipation 01/31/22 [History Last Taken Unknown] ondansetron HCl 4 mg tablet 4 mg PO Q6H PRN Nausea And Vomiting 01/31/22 [History Last Taken Unknown] polyethylene glycol 3350 17 gram/dose oral powder 17 g PO DAILY 01/31/22 [History Last Taken Unknown] mupirocin 2 % topical ointment 1 applic topical TID #0 grams 02/03/22 [Rx Last Taken Unknown] nystatin 100,000 unit/gram topical powder (Nyamyc) 1 applic topical TID #0 grams 02/03/22 [Rx Last Taken Unknown] apixaban 2.5 mg tablet 5 mg PO BID DVT 05/19/22 [History Last Taken Unknown] atorvastatin 20 mg tablet 20 mg PO QHS cholesterol 05/19/22 [History Last Taken Unknown] hydralazine 50 mg tablet 50 mg PO TID bp 05/19/22 [History Last Taken Unknown] Allergy/AdvReac Type Severity Reaction Status Date / Time codeine Allergy Unknown Hives Verified 12/29/22 07:06 cefazolin Allergy Rash Verified 12/29/22 07:06 ciprofloxacin [From Cipro] Allergy Hives Verified 12/29/22 07:06 ciprofloxacin HCl Allergy Hives Verified 12/29/22 07:06 [From Cipro] Latex, Natural Rubber Allergy Rash Verified 12/29/22 07:06 Penicillins [PCN] Allergy Hives Verified 12/29/22 07:06 vancomycin Allergy Angioedema Verified 12/29/22 07:06 adhesive tape AdvReac Rash Verified 12/29/22 07:06 Family History Father Heart disease Cancer prostate Mother Hypertension Cancer mets but unsure where to Breast cancer Brother Diabetes Hypertension Surgical History History of cataract surgery History of cholecystectomy History of coronary artery bypass surgery (~01/02/11) History of hernia repair History of tonsillectomy and adenoidectomy History of total hysterectomy Presence of coronary angioplasty implant and graft (~08/29/12) S/P percutaneous endoscopic gastrostomy (PEG) tube placement Social History housing: assisted Smoking Status: Former smoker how long ago did patient quit smokin alcohol intake: never substance use type: does not use caffeine: Yes Type: coffee Number of servings: 1 additional social history: DOES NOT USE ASPIRIN DOES US IBUPROFEN ROS ROS ED Constitutional Constitutional ED: Denies chills or fever(s) Cardiovascular Cardiovascular: Denies chest pain Respiratory/Chest Respiratory/Chest: Denies dyspnea Gastrointestinal Gastrointestinal: Denies abdominal pain, diarrhea, nausea or vomiting Integumentary Denies rash Neurologic Neurologic: Denies headache(s) EXAM Physical Exam Const Vital Signs: 12/29/22 07:01 Temperature 97.9 F Temperature Source Temporal Pulse Rate 62 Respiratory Rate 18 Blood Pressure 141/54 H Blood Pressure Mean 83 Pulse Ox 100 Oxygen Delivery Method Room Air Positive well nourished, well developed and obese General Appearance ED: well developed and NAD Nutritional Appearance: obese HEENT Reports moist mucous membranes Resp normal respiratory effort and clear to auscultation bilaterally GI normal to inspection, nondistended, normoactive bowel sounds and non-tender GI Narrative: Mid upper abdomen gastrostomy site benign, [address] without any leakage or bleeding or erythema around the site. Extremity normal to inspection Neuro oriented x3 and CN's II-XII intact bilaterally Sensorium / Orientation: alert Psych mental status grossly normal Skin no rashes or lesions noted and no wounds MDM MDM MDM Narrative Medical decision making narrative: Patient had a new gastrostomy tube placed by myself, see the procedure note. Although this is meant for duodenal feeds and has a guidewire within it that is not meant to be removed, it should be okay if it stays within the stomach. It has a unique connector, so I am having nursing obtain special syringe from central sterile to send back with the patient, we use this to verify placement it aspirating stomach contents prior to discharge. Procedures Other Procedures Procedure(s): G-tube replacement: 14 [place] G-tube with malfunctioning balloon is in place within the gastrostomy. After informed verbal consent from the patient, a new 18 [place] gastrostomy tube was placed and the 14 [place] malfunctioning tube was discarded, the 18 [place] was placed within the lumen without any discomfort or resistance, the 20 mL balloon which was tested and deemed competent prior to replacement was inflated without any pain or discomfort, and the bolster was secured. The only 2 we had available from central storage was an 18 [place] Fuller gastrostomy tube meant for distal duodenal feedings. This is the one that was placed. Tract is well-established, epigastric contents aspirated and flushed easily, therefore KUB not necessary to confirm placement. No complications and tolerated well by patient. Discharge Plan Triage Chief Complaint: Other, Pain/Inj ED Provider: Kash Cárdenas Dx/Rx/DC Orders Clinical Impression: Malfunction of gastrostomy tube Instructions: ED Feeding Tube Replacement Prescriptions: No Action albuterol sulfate 2.5 MG/3 ML solution for nebulization 2.5 mg inhalation Q2H PRN PRN (Reason: SOB/Wheezing) 0RF amiodarone 200 mg tablet 100 mg PO DAILY amlodipine 2.5 mg tablet 2.5 mg PO DAILY duloxetine 30 mg capsule,delayed release(DR/EC) 60 mg PO DAILY Jevity 1.5 Laureano 0.06 gram-1.5 kcal/mL Liquid 250 ml G-tube 4X/DAY Qty: 0 0RF ondansetron HCl 4 mg tablet 4 mg PO Q6H PRN (Reason: Nausea And Vomiting) guaifenesin 100 mg Tablet 600 mg PO Q12H mineral oil Enema 118 ml MI DAILY PRN (Reason: Constipation) magnesium hydroxide [Milk of Magnesia] 400 mg/5 mL Suspension 30 ml PO DAILY PRN (Reason: Constipation) bisacodyl 10 mg Suppository 10 mg MI DAILY PRN (Reason: Constipation) hydroxyzine HCl 25 mg Tablet 25 mg PO Q8 PRN (Reason: ITCHY RASH ON UPPER AND LOWER EXTREMITIES) estradiol 0.01 % (0.1 mg/gram) cream 1 applic VAGINAL QPM d-mannose 500 mg Capsule 2,000 mg PO DAILY furosemide 40 mg tablet 40 mg PO DAILY acetaminophen 325 mg tablet 650 mg PO Q6H PRN (Reason: PAIN AND FEVER) gabapentin 300 mg capsule 600 mg PO TID polyethylene glycol 3350 17 gram/dose powder 17 g PO DAILY carbamazepine 200 mg/10 mL suspension 200 mg PO BID mupirocin 2 % Ointment 1 applic topical TID Qty: 0 0RF Protocol: *Topical Application Instructions APPLICATION INSTRUCTIONS: apply to peg site Rx Instructions: Place around PEG site time a total of 7 days nystatin [Nyamyc] 100,000 unit/gram Powder 1 applic topical TID Qty: 0 0RF Protocol: *Topical Application Instructions APPLICATION INSTRUCTIONS: to affected regions Rx Instructions: Placed in affected areas atorvastatin 20 MG tablet 20 mg PO QHS hydralazine 50 MG tablet 50 mg PO TID Rx Instructions: hold for bp less than 100/60 apixaban 2.5 MG tablet 5 mg PO BID Primary Care Provider: Uriel Mac Referrals: Uriel Mac MD [Primary Care Provider] - As Needed Disposition Disposition: Home, Self Care
== END 2022-12-29 09:37 | disposition home or self-care (01) ==
PROVIDERS: Emergency Provider Emergency Medicine; PCP Family Medicine; Visit Provider Emergency Medicine
DX: K94.23 Gastrostomy malfunction (principal); I11.0 Hypertensive heart disease with heart failure; I50.32 Chronic diastolic (congestive) heart failure; E11.9 Type 2 diabetes mellitus without complications; E78.5 Hyperlipidemia, unspecified; I25.10 Atherosclerotic heart disease of native coronary artery without angina pectoris; Z87.891 Personal history of nicotine dependence; E66.9 Obesity, unspecified
CPT/HCPCS: 43762; 99284

== ENCOUNTER 2023-01-02 09:55 | Inpatient (IN) | payer MEDICARE, MEDICAID, SELFPAY ==
[2023-01-02] VITALS (9 sets, daily range): BP systolic 114–162; BP diastolic 52–116; PULSE 71–91; RESP 16–29; TEMP 37.1–38.1; O2SAT 92–100; BMI 35.7; BMI 36.8
--- NOTE | 2023-01-02 10:27 | ED.VIS.CHEST ---
HPI History of Present Illness Chief Complaint: Chest Pain Informant: patient Onset/Context/Timing Onset: Today Activity at onset: sudden Timing: Continuous Quality: Positive for Pressure Location: Left Chest Worsened By: Nothing Relieved By: Nothing Associated Symptoms: Positive for Nausea, Diaphoresis, Lightheadedness, Acid Reflux and Palpitations; Negative for Vomiting, Dyspnea, Cough or Fever Narrative Narrative: Patient presents with chest pain that began today. Patient states that it began rather suddenly this morning. Patient states she drank some cold water when the pain began. Patient describes the pain as a pressure. Patient states it is over the left side of her chest. Patient states it has been constant for the past hour. Patient states nothing makes it better and nothing makes it worse. Patient admits to some nausea but denies any vomiting. Patient admits to some diaphoresis. Patient also admits to some dizziness and heartburn. Patient states she is also felt some palpitations. Patient does have a history of coronary artery disease. Daughter states that she was called by the nursing facility and was told that the patient's blood pressure was 88/40 and she was having difficulty breathing and gasping. CVD Risk Factors: Positive for Hypertension, Diabetes and Hypercholesterolemia; Negative for Family History 1' </=55 or Smoking PE Risk Factors: Negative for Recent Travel/Surgery, Recent Immobilization, Prior DVT or PE, Cancer or OCP + Smoking + >/=35 PFSH PFSH Medical History Atherosclerotic heart disease of [place] coronary artery without angina pectoris Carcinoma of lip Chronic GI bleeding Dementia Diabetic ulcer of both lower extremities Diastolic CHF Dysphagia Essential hypertension GERD (gastroesophageal reflux disease) History of DVT (deep vein thrombosis) Hyperlipidemia 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 Multiple sclerosis LAURITA (obstructive sleep apnea) Paroxysmal atrial fibrillation Peripheral vascular disease Presence of stent in coronary artery (~08/29/12) Restrictive airway disease Swallowing dysfunction Trigeminal neuralgia Type 2 diabetes mellitus Ulcer of left lower extremity with fat layer exposed Ulcer of right lower extremity with fat layer exposed Venous insufficiency of both lower extremities Home Medications albuterol sulfate 2.5 mg/3 mL (0.083 %) solution for nebulization 2.5 mg (3 mL) inhalation Q2H PRN PRN SOB/Wheezing 08/12/19 [Rx Last Taken Unknown] amiodarone 200 mg tablet 100 mg PO DAILY heart 11/22/21 [History Last Taken Unknown] amlodipine 2.5 mg tablet 2.5 mg PO DAILY HTN 11/22/21 [History Last Taken Unknown] duloxetine 30 mg capsule,delayed release 60 mg PO DAILY depression 11/22/21 [History Last Taken Unknown] lactose-reduced food with fiber 0.06 gram-1.5 kcal/mL oral liquid (Jevity 1.5 Laureano) 250 ml G-tube 4X/DAY #0 mL 11/25/21 [Rx Last Taken Unknown] acetaminophen 325 mg tablet 650 mg PO Q6H PRN PAIN AND FEVER 01/31/22 [History Last Taken Unknown] bisacodyl 10 mg rectal suppository 10 mg SC DAILY PRN Constipation 01/31/22 [History Last Taken Unknown] carbamazepine 200 mg/10 mL oral suspension 200 mg PO BID 01/31/22 [History Last Taken Unknown] d-mannose 500 mg capsule 2,000 mg PO DAILY 01/31/22 [History Last Taken Unknown] estradiol 0.01% (0.1 mg/gram) vaginal cream 1 applic vaginal QPM UTI 01/31/22 [History Last Taken Unknown] furosemide 40 mg tablet 40 mg PO DAILY 01/31/22 [History Last Taken Unknown] gabapentin 300 mg capsule 600 mg PO TID 01/31/22 [History Last Taken Unknown] guaifenesin 100 mg tablet 600 mg PO Q12H 01/31/22 [History Last Taken Unknown] hydroxyzine HCl 25 mg tablet 25 mg PO Q8 PRN ITCHY RASH ON UPPER AND LOWER EXTREMITIES 01/31/22 [History Last Taken Unknown] magnesium hydroxide 400 mg/5 mL oral suspension (Milk of Magnesia) 30 ml PO DAILY PRN Constipation 01/31/22 [History Last Taken Unknown] mineral oil 118 ml SC DAILY PRN Constipation 01/31/22 [History Last Taken Unknown] ondansetron HCl 4 mg tablet 4 mg PO Q6H PRN Nausea And Vomiting 01/31/22 [History Last Taken Unknown] polyethylene glycol 3350 17 gram/dose oral powder 17 g PO DAILY 01/31/22 [History Last Taken Unknown] mupirocin 2 % topical ointment 1 applic topical TID #0 grams 02/03/22 [Rx Last Taken Unknown] nystatin 100,000 unit/gram topical powder (Nyamyc) 1 applic topical TID #0 grams 02/03/22 [Rx Last Taken Unknown] apixaban 2.5 mg tablet 5 mg PO BID DVT 05/19/22 [History Last Taken Unknown] atorvastatin 20 mg tablet 20 mg PO QHS cholesterol 05/19/22 [History Last Taken Unknown] hydralazine 50 mg tablet 50 mg PO TID bp 05/19/22 [History Last Taken Unknown] Allergy/AdvReac Type Severity Reaction Status Date / Time codeine Allergy Unknown Hives Verified 01/02/23 09:55 cefazolin Allergy Rash Verified 01/02/23 09:55 ciprofloxacin [From Cipro] Allergy Hives Verified 01/02/23 09:55 ciprofloxacin HCl Allergy Hives Verified 01/02/23 09:55 [From Cipro] Latex, Natural Rubber Allergy Rash Verified 01/02/23 09:55 Penicillins [PCN] Allergy Hives Verified 01/02/23 09:55 vancomycin Allergy Angioedema Verified 01/02/23 09:55 adhesive tape AdvReac Rash Verified 01/02/23 09:55 Family History Father Heart disease Cancer prostate Mother Hypertension Cancer mets but unsure where to Breast cancer Brother Diabetes Hypertension Surgical History History of cataract surgery History of cholecystectomy History of coronary artery bypass surgery (~01/02/11) History of hernia repair History of tonsillectomy and adenoidectomy History of total hysterectomy Presence of coronary angioplasty implant and graft (~08/29/12) S/P percutaneous endoscopic gastrostomy (PEG) tube placement Social History [facility] Smoking Status: Former smoker how long ago did patient quit smokin alcohol intake: never substance use type: does not use caffeine: Yes Type: coffee Number of servings: 1 additional social history: DOES NOT USE ASPIRIN DOES US IBUPROFEN ROS ROS ED Constitutional Constitutional ED: Reports fever(s) and subjective; Denies chills Eyes Eyes: Denies blurry vision or change in vision ENT ENT ED: Denies rhinorrhea or sore throat Cardiovascular Cardiovascular: Reports chest pain and palpitations Respiratory/Chest Respiratory/Chest: Denies cough or dyspnea Gastrointestinal Gastrointestinal: Reports nausea; Denies vomiting Genitourinary Genitourinary ED: Denies dysuria or hematuria Musculoskeletal Musculoskeletal: Denies back pain or neck pain Integumentary Denies abscess or rash Neurologic Neurologic: Denies headache(s) or weakness Allergic/Immunologic Allergic/Immunologic ED: Denies mouth swelling or urticaria EXAM Physical Exam Const Vital Signs: 01/02/23 09:56 01/02/23 09:56 01/02/23 10:46 Temperature 98.7 F Temperature Source Oral Pulse Rate 71 Respiratory Rate 29 H Respiratory Effort Normal Non-Labored Blood Pressure 139/57 H Blood Pressure Mean 84 Pulse Ox 100 Oxygen Delivery Method Nasal Cannula Room Air Oxygen Flow Rate (L/min) 2 01/02/23 13:06 01/02/23 14:00 01/02/23 15:00 Temperature Temperature Source Pulse Rate 84 89 88 Respiratory Rate 28 H 16 29 H Respiratory Effort Blood Pressure 114/100 H 121/59 H 162/69 H Blood Pressure Mean 104 79 100 Pulse Ox 98 97 Oxygen Delivery Method Oxygen Flow Rate (L/min) Positive well nourished, well developed and obese General Appearance ED: well developed and NAD Nutritional Appearance: obese HEENT Reports moist mucous membranes Neck supple and no JVD Resp normal respiratory effort and clear to auscultation bilaterally Cardio regular rate and regular rhythm GI soft to palpation, non-tender and non-distended Neuro oriented x3, CN's II-XII intact bilaterally and no sensory deficits noted Sensorium / Orientation: awake and alert Psych mental status grossly normal Heart Score History: Slightly/Non-Suspicious ECG: Nonspecific Repolarization Age: >/= 65 years Risk Factors: >/= 3 Risk Factors or History of CAD Score: 5 Sepsis Attestation Sepsis Alert: Yes Sepsis Attestation: Agree w/Sepsis Possible Source of Sepsis: Genitourinary Sepsis Organ Dysfunction Criteria Present: Lactic Acid > 2 mmol/L and New/Unexplained change in mental status MDM MDM MDM Narrative Medical decision making narrative: Differential diagnosis includes cardiac dysrhythmia, cardiac ischemia, pneumonia, pneumothorax, pulmonary embolism, electrolyte abnormality, musculoskeletal pain, viral illness, and anxiety. EKG will be obtained to assess for cardiac dysrhythmia and cardiac ischemia. CBC will be obtained to assess for leukocytosis and anemia. Basic metabolic profile will be obtained to assess for electrolyte abnormality and renal function. High-sensitivity troponin will be obtained to assess for cardiac ischemia. 2-hour repeat high-sensitivity troponin will be obtained to assess for ongoing cardiac ischemia. D-dimer will be obtained to assess for pulmonary embolism. PT was INR and PTT will be obtained to assess for coagulopathy. Lab Data Attestation: I reviewed the patient's lab results. Lab results narrative: CBC was reviewed. There is a leukocytosis of 21.7. Hemoglobin was 9.5 and hematocrit was 38.0. Basic metabolic profile was reviewed and was essentially within normal limits. High-sensitivity troponin was reviewed and was normal at 22. D-dimer was reviewed and was 0.65 which is normal for the patient's age. PT with INR and PTT were reviewed and were essentially within normal limits. 2-hour repeat high-sensitivity troponin was reviewed and was normal at 25. Urinalysis was reviewed. There are positive nitrates with a leukocyte esterases of 500. There are 25-50 white blood cells and 1+ bacteria. Serum lactate was reviewed and was slightly elevated at 2.7. Labs: Laboratory Results - last 24 hr 01/02/23 01/02/23 01/02/23 10:05 12:35 13:20 WBC 21.7 H RBC 4.54 Hgb 9.5 L Hct 38.0 MCV 83.7 MCH 20.9 L MCHC 25.0 L RDW Std Deviation 65.4 H RDW Coeff of Carissa 22.0 H Plt Count 331 MPV 10.1 Immature Gran % (Auto) 0.600 Neut % (Auto) 79.8 H Lymph % (Auto) 13.4 L [place] % (Auto) 5.3 Eos % (Auto) 0.6 Baso % (Auto) 0.3 Absolute Neuts (auto) 17.3 H Absolute Lymphs (auto) 2.91 Nucleated RBC % 0 Differential Comment SCANNED Hypochromasia 1+ Anisocytosis 2+ Microcytosis 1+ Macrocytosis 1+ PT 14.2 INR 1.1 APTT 23.0 L D-Dimer Quant (PE/DVT) 0.65 H* Sodium 142 Potassium 3.4 L Chloride 101 Carbon Dioxide 34.0 H Anion Gap 7 BUN 19 H Creatinine 1.13 H Estim Creat Clear Calc 33.94 Est GFR (MDRD) Af Amer 60 Est GFR (MDRD) Non-Af 49 L BUN/Creatinine Ratio 16.8 Glucose 222 H Lactic Acid Calcium 8.5 Troponin I High Sens 22 25 Urine Color Yellow Urine Clarity Sl. Cloudy Urine pH 6.0 Ur Specific [place] 1.015 Urine Protein 30 H Urine Glucose (UA) Normal Urine Ketones Negative Urine Occult Blood 50 H Urine Nitrite Positive H Urine Bilirubin Negative Urine Urobilinogen Normal Ur Leukocyte Esterase 500 H Urine RBC 0-5 SEEN Urine WBC 25-50 SEEN Ur Squamous Epith Cells 0 SEEN Urine Bacteria 1+ Urine Mucus 0 SEEN 01/02/23 14:45 WBC RBC Hgb Hct MCV MCH MCHC RDW Std Deviation RDW Coeff of [place] Plt Count MPV Immature Gran % (Auto) Neut % (Auto) Lymph % (Auto) [place] % (Auto) Eos % (Auto) Baso % (Auto) Absolute Neuts (auto) Absolute Lymphs (auto) Nucleated RBC % Differential Comment Hypochromasia Anisocytosis Microcytosis Macrocytosis PT INR APTT D-Dimer Quant (PE/DVT) Sodium Potassium Chloride Carbon Dioxide Anion Gap BUN Creatinine Estim Creat Clear Calc Est GFR (MDRD) Af Amer Est GFR (MDRD) Non-Af BUN/Creatinine Ratio Glucose Lactic Acid 2.7 H* Calcium Troponin I High Sens Urine Color Urine Clarity Urine pH Ur Specific [place] Urine Protein Urine Glucose (UA) Urine Ketones Urine Occult Blood Urine Nitrite Urine Bilirubin Urine Urobilinogen Ur Leukocyte Esterase Urine RBC Urine WBC Ur Squamous Epith Cells Urine Bacteria Urine Mucus Radiography Chest X-Ray - ED: 1 View, Read by ED Physician, Read by Radiologist and No Acute Disease Diagnostic Testing: Clinical Impression(s) from Imaging Studies Chest X-Ray 01/02/23 11:30 IMPRESSION: No suspicious acute cardiopulmonary pathology and no significant interval change considering rotated chest positioning when compared to 05/18/2022. Electronically Signed: Bc Vivar MD at 11:55 EST Reading Location ID and State: [facility] / [place] , Service support , Brain CT 01/02/23 14:24 IMPRESSION: 1. No CT evidence of intracranial bleeding, acute ischemic infarct or acute intracranial abnormality. 2. Confluent chronic white matter ischemic changes in both cerebral hemispheres. 3. No significant interval change when compared to 04/26/2021. Electronically Signed: Bc Vivar MD at 15:57 EST Reading Location ID and State: [facility] / [place] , Service support , Portable 1 view chest x-ray was obtained. On my independent interpretation, lung gallegos are clear. There is normal cardiac silhouette. Bony thorax is normal. There is no acute process noted. Radiologist also interpreted the x-ray and agrees. CT scan of the brain was obtained. There is no acute intracranial abnormality. There are chronic changes noted. This was interpreted by the radiologist and was also independently reviewed by myself. EKG Initial EKG: Attestation: I personally reviewed and interpreted this EKG as follows: Interpretation: Sinus Rhythm (70) and Non-Specific ST Changes Comments: EKG was obtained. On my independent interpretation, it showed a normal sinus rhythm with a rate of 70. SC interval, QRS interval, and QTc intervals were all normal. [place] was normal. There are nonspecific ST-T wave changes. Prior EKG tracings: available for review Prior: Unchanged (05/18/2022) Differential Diagnosis Chest pain/SOB: pulmonary embolism, ACS, pneumothorax and pneumonia Management Discussion w/another healthcare provider: Hospitalist Treatment and Re-Evaluation :: Patient was given aspirin for her chest pain. Patient was given a dose of Macrobid for her urinary tract infection. (Patient has allergies to quinolones, penicillins, vancomycin, and cephalosporins). On reevaluation, the patient was more confused and not answering any questions. Son was at the bedside and stated that this is how she gets when she gets a urinary tract infection. Due to her confusion, CT scan of the brain will be obtained to assess for stroke and intracranial bleeding. Blood cultures and lactate were obtained to assess for sepsis. Case will be discussed with the hospitalist for admission. He will admit the patient to PCU. Family understood and was agreeable with the plan. All questions were answered. Discharge Plan Dx/Rx/DC Orders Clinical Impression: Urinary tract infection, Acute confusion, Chest pain, Sepsis Disposition Disposition: [facility]
--- NOTE | 2023-01-02 10:41 | EKG12_ITS ---
Test Reason : CP Blood Pressure : / mmHG Vent. Rate : 070 BPM Atrial Rate : 070 BPM P-R Int : 174 ms QRS Dur : 078 ms QT Int : 402 ms P-R-T Axes : 061 010 153 degrees QTc Int : 434 ms Normal sinus rhythm ST & T wave abnormality, consider lateral ischemia Abnormal ECG Confirmed by BLACK HATCH, PARDEEP ([id number]), supervising editor trailer BOBBY VELA ([id number]) on 01/03/2023 11:07:23 AM Referred By: Confirmed By:PARDEEP CLEANING MD
[2023-01-02 10:51] LABS: Absolute Lymphocyte Count 2.91 X10^3/uL (0.83-4.51); Absolute Neutrophil Count 17.3 X10^3/uL (2.0-7.7); Basophil# 0.06 X10^3/uL; Basophil% 0.3 % (0-1); Eosinophil# 0.13 X10^3/uL; Eosinophils% 0.6 % (0-5); Hemoglobin 9.5 g/dL (12.0-15.0); Lymphocyte # 2.91 X10^3/ul (0.83-4.51); Lymphocyte % 13.4 % (19-41); Mean Corpuscular Hgb 20.9 pg (27.0-32.0); Mean Corpuscular Volume 83.7 fL (81-99); Mean Platelet Vol. 10.1 fl (6.2-12.0); Monocyte# 1.15 X10^3/uL; Monocyte% 5.3 % (0-10); NRBC Flagged by Analyzer 0 % (0-5); Neutrophil # 17.31 X10^3/uL (2.7-7.7); Neutrophil % 79.8 % (47-70); POSITIVE MORPHOLOGY YES; Platelet Count 331 K/mm3 (150-450); RBC Distribution Width SD 65.4 fl (35.1-43.9); Red Blood Count 4.54 M/mm3 (4.2-5.4); White Blood Count 21.7 K/mm3 (4.4-11.0)
[2023-01-02 11:04] LABS: Differential Indicated SCAN CRITERIA MET; International Normalized Ratio 1.1; Prothrombin Time (Protime)PT. 14.2 SECONDS (11.7-14.9)
[2023-01-02 11:07] LABS: Anion Gap 7 (5-15); BUN 19 mg/dL (7-18); BUN/Creat Ratio 16.8 RATIO (10-20); Calcium,Total 8.5 mg/dL (8.5-10.1); Chloride 101 mmol/L (98-107); Creatinine, Serum 1.13 mg/dL (0.55-1.02); EST Glomerular Filtration Rate 49 mL/min (>60); Est Glom Filt Rate - Afr Amer 60 mL/min (>60); Estimated Creatinine Clearance 33.94 ml/min; Glucose 222 mg/dL (74-106); Potassium 3.4 mmol/L (3.5-5.1); Sodium Level 142 mmol/L (136-145); Troponin-I HS (w/2H Reflex) 22 pg/mL (3.0-54.0)
[2023-01-02] MEDS: Aspirin 81 MG TAB.CHEW 324 MG PO (11:12)
[2023-01-02 11:26] LABS: Anisocytosis 2+; Differential Comment SCANNED; Hypochromasia 1+; Macrocytosis 1+; Microcytosis 1+
[2023-01-02 11:27] LABS: D-Dimer Quantitative (DVT/PE) 0.65 FEU/ug/m (0.27-0.49)
--- NOTE | 2023-01-02 11:30 | RAD_ITS ---
EXAM: XR CHEST, 1 VIEW CLINICAL INDICATION: Chest pain TECHNIQUE: Frontal view of the chest. COMPARISON: 05/18/2022. FINDINGS: LUNGS AND PLEURAL SPACES: Pulmonary hypoinflation. No suspicious infiltrates. No pneumothorax. No effusion. HEART: Mild cardiomegaly. MEDIASTINUM: Central airways and mediastinal contour are unremarkable. BONES/JOINTS: Intact sternal wires. No acute fracture. SOFT TISSUES: Unremarkable. OTHER FINDINGS: Rotated chest positioning. RAD/Chest 1 View (Portable) IMPRESSION: No suspicious acute cardiopulmonary pathology and no significant interval change considering rotated chest positioning when compared to 05/18/2022. Electronically Signed: Bc Vivar MD at 11:55 EST ,
[2023-01-02 12:36] LABS: Mucous, Urine 0 SEEN /hpf (<or=2+); Squamous Epithelial Cells - UA 0 SEEN /hpf (5-10)
[2023-01-02 12:39] LABS: Color, Urine Yellow (Yellow); Glucose, Dipstick Normal (Normal); Ketone-Dipstick Negative (Negative); Leukocyte Esterase-Dipstick 500 /ul (Negative); Nitrite-Dipstick Positive (Negative); Occult Blood-Urine 50 /ul (Negative); Protein-Dipstick 30 mg/dl (Negative); Specific Gravity, Urine 1.015 (1.002-1.030); Urine Bilirubin Dipstick Negative (Negative); Urine Clarity Sl. Cloudy (Clear); Urine Urobilinogen Normal (Normal)
[2023-01-02 12:47] LABS: Bacteria 1+ /hpf (None Seen); Red Blood Cells-Urine 0-5 SEEN /hpf (0-5); White Blood Cells 25-50 SEEN /hpf (0-5)
[2023-01-02 12:48] LABS: Reflex Troponin-HS? (from REC) Y
[2023-01-02] MEDS: Nitrofurantoin Macrocrystals 100 MG Capsule PO (13:19)
[2023-01-02 13:46] LABS: Troponin-I HS 25 pg/mL (3.0-54.0)
--- NOTE | 2023-01-02 14:24 | CT_ITS ---
EXAM: CT HEAD WITHOUT INTRAVENOUS CONTRAST CLINICAL INDICATION: Acute confusion. TECHNIQUE: Multiple axial images were obtained of the head without intravenous contrast. This CT exam was performed using one or more of the following dose reduction techniques: automated exposure control, adjustment of the mA and/or kV according to patient size, and/or use of iterative reconstruction technique. RADIATION DOSE: CTDIvol = 44.99 mGy, DLP = 883.29 mGy-cm COMPARISON: CT head without contrast 04/26/2021. MRI brain with and without contrast 08/03/2021. FINDINGS: BRAIN AND EXTRA-AXIAL SPACES: Multiple hypodensities in the white matter of both cerebral hemispheres are chronic white matter ischemic changes. Tilted to head positioning causing asymmetry of the cerebral hemispheres. Asymmetric cerebral cortical atrophy causing asymmetric prominence of the CSF spaces overlying the temporal lobes and left frontal lobe. No intra- or extra-axial hemorrhage. No intracranial mass or mass effect. Posterior fossa structures are unremarkable. Basal cisterns are patent. BONES/JOINTS: Unremarkable. No discrete lytic or blastic abnormalities. SINUSES: Unremarkable as visualized. Clear. MASTOID AIR CELLS: Unremarkable. Clear. ORBITS: Visualized globes, extraocular muscles, optic nerves and retrobulbar fat appear unremarkable. CT/Brain/Head without Contrast IMPRESSION: 1. No CT evidence of intracranial bleeding, acute ischemic infarct or acute intracranial abnormality. 2. Confluent chronic white matter ischemic changes in both cerebral hemispheres. 3. No significant interval change when compared to 04/26/2021. Electronically Signed: Bc Vivar MD at 15:57 EST ,
--- NOTE | 2023-01-02 15:12 | HP.PCM.HOS_ITS ---
HPI - General General Date of Admission: 01/02/23 Date of Service: 01/02/23 Chief Complaint: Altered mental status, chest discomfort HPI Narrative SINA VIZCARRA, is a 77 F who presented to the [facility] ED on 01/02/2023 from her long term for reported chest discomfort and altered mental status. Patient seen at bedside in the ED, patient's son present. Patient was alert on my interview but was not answering questions appropriately. She reported continued chest discomfort, unchanged from earlier today. She denies any other pain or discomfort currently. Remainder of history was obtained from patient's son. Patient has history of dementia with debility and has resided at the [facility] for about 2 years. Patient has a history of multiple urinary tract infections, and son states that her mental status change currently is very similar to the changes noted on previous admissions for UTIs. He states she has reported chest discomfort during these episodes in the past as well and the workup for chest pain has been negative. Son states that patient had PEG tube placed almost 2 years ago for difficulty swallowing. She has been on a modified diet at her long term and has been eating and drinking fairly well recently. He thinks that she still occasionally receives tube feeds through the PEG tube, but she has not needed these feeds for quite some time now. Otherwise, no acute concerns at this time. 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 Chronic GI bleeding CPAP (continuous positive airway pressure) dependence Dementia Diabetic ulcer of both lower extremities Diastolic CHF Dysphagia Essential hypertension Former smoker GERD (gastroesophageal reflux disease) History of DVT (deep vein thrombosis) Hyperlipidemia Hypertension Iron deficiency anemia intermediate card tender current use of amiodarone Multiple sclerosis LAURITA (obstructive sleep apnea) Paroxysmal atrial fibrillation Peripheral vascular disease Presence of stent in coronary artery (~08/29/12) Restrictive airway disease Swallowing dysfunction Trigeminal neuralgia Type 2 diabetes mellitus Ulcer of left lower extremity with fat layer exposed Ulcer of right lower extremity with fat layer exposed Venous insufficiency of both lower extremities Home Medications albuterol sulfate 2.5 mg/3 mL (0.083 %) solution for nebulization 2.5 mg (3 mL) inhalation Q2H PRN PRN SOB/Wheezing 08/12/19 [Rx Last Taken Unknown] amiodarone 200 mg tablet 100 mg PO DAILY heart 11/22/21 [History Last Taken Unknown] amlodipine 2.5 mg tablet 2.5 mg PO DAILY HTN 11/22/21 [History Last Taken Unknown] duloxetine 30 mg capsule,delayed release 60 mg PO DAILY depression 11/22/21 [History Last Taken Unknown] lactose-reduced food with fiber 0.06 gram-1.5 kcal/mL oral liquid (Jevity 1.5 Laureano) 250 ml G-tube 4X/DAY #0 mL 11/25/21 [Rx Last Taken Unknown] acetaminophen 325 mg tablet 650 mg PO Q6H PRN PAIN AND FEVER 01/31/22 [History L ast Taken Unknown] bisacodyl 10 mg rectal suppository 10 mg IA DAILY PRN Constipation 01/31/22 [History Last Taken Unknown] carbamazepine 200 mg/10 mL oral suspension 200 mg PO BID 01/31/22 [History Last Taken Unknown] d-mannose 500 mg capsule 2,000 mg PO DAILY 01/31/22 [History Last Taken Unknown] estradiol 0.01% (0.1 mg/gram) vaginal cream 1 applic vaginal QPM UTI 01/31/22 [History Last Taken Unknown] furosemide 40 mg tablet 40 mg PO DAILY 01/31/22 [History Last Taken Unknown] gabapentin 300 mg capsule 600 mg PO TID 01/31/22 [History Last Taken Unknown] guaifenesin 100 mg tablet 600 mg PO Q12H 01/31/22 [History Last Taken Unknown] hydroxyzine HCl 25 mg tablet 25 mg PO Q8 PRN ITCHY RASH ON UPPER AND LOWER EXTREMITIES 01/31/22 [History Last Taken Unknown] magnesium hydroxide 400 mg/5 mL oral suspension (Milk of Magnesia) 30 ml PO DAILY PRN Constipation 01/31/22 [History Last Taken Unknown] mineral oil 118 ml IA DAILY PRN Constipation 01/31/22 [History Last Taken Unknown] ondansetron HCl 4 mg tablet 4 mg PO Q6H PRN Nausea And Vomiting 01/31/22 [History Last Taken Unknown] polyethylene glycol 3350 17 gram/dose oral powder 17 g PO DAILY 01/31/22 [History Last Taken Unknown] mupirocin 2 % topical ointment 1 applic topical TID #0 grams 02/03/22 [Rx Last Taken Unknown] nystatin 100,000 unit/gram topical powder (Nyamyc) 1 applic topical TID #0 grams 02/03/22 [Rx Last Taken Unknown] apixaban 2.5 mg tablet 5 mg PO BID DVT 05/19/22 [History Last Taken Unknown] atorvastatin 20 mg tablet 20 mg PO QHS cholesterol 05/19/22 [History Last Taken Unknown] hydralazine 50 mg tablet 50 mg PO TID bp 05/19/22 [History Last Taken Unknown] Allergy/AdvReac Type Severity Reaction Status Date / Time codeine Allergy Unknown Hives Verified 01/02/23 09:55 cefazolin Allergy Rash Verified 01/02/23 09:55 ciprofloxacin [From Cipro] Allergy Hives Verified 01/02/23 09:55 ciprofloxacin HCl Allergy Hives Verified 01/02/23 09:55 [From Cipro] Latex, Natural Rubber Allergy Rash Verified 01/02/23 09:55 Penicillins [PCN] Allergy Hives Verified 01/02/23 09:55 vancomycin Allergy Angioedema Verified 01/02/23 09:55 adhesive tape AdvReac Rash Verified 01/02/23 09:55 Family History Father Heart disease Cancer prostate Mother Hypertension Cancer mets but unsure where to Breast cancer Brother Diabetes Hypertension Surgical History (Updated 01/02/23 @ 16:38 by Maria Isabel Baird) History of appendectomy History of cataract surgery History of cholecystectomy History of cholecystectomy History of coronary artery bypass surgery (~01/02/11) History of coronary artery stent placement History of hernia repair History of tonsillectomy and adenoidectomy History of total hysterectomy Presence of coronary angioplasty implant and graft (~08/29/12) S/P percutaneous endoscopic gastrostomy (PEG) tube placement Social History housing: long term Smoking Status: Former smoker how long ago did patient quit smokin alcohol intake: never substance use type: does not use caffeine: Yes Type: coffee Number of servings: 1 additional social history: DOES NOT USE ASPIRIN DOES US IBUPROFEN ROS Review of Systems ROS Unobtainable: Denies due to mental status Vital Signs Vital Signs Vital Signs: 01/02/23 09:56 01/02/23 09:56 01/02/23 10:46 Temperature 98.7 F Temperature Source Oral Pulse Rate 71 Respiratory Rate 29 H Respiratory Effort Normal Non-Labored Blood Pressure 139/57 H Blood Pressure Mean 84 Pulse Ox 100 Oxygen Delivery Method Nasal Cannula Room Air Oxygen Flow Rate (L/min) 2 01/02/23 13:06 01/02/23 14:00 Temperature Temperature Source Pulse Rate 84 89 Respiratory Rate 28 H 16 Respiratory Effort Blood Pressure 114/100 H 121/59 H Blood Pressure Mean 104 79 Pulse Ox 98 97 Oxygen Delivery Method Oxygen Flow Rate (L/min) Weight Weight: 91.5 kg Body Mass Index (BMI) 35.7 Physical Exam Const alert and no apparent distress Constitutional Narrative: Elderly female, chronically ill-appearing, obese, alert but not answering questions appropriately, laying comfortably in bed, no acute distress. General Appearance: cooperative and comfortable HEENT normocephalic, head/scalp atraumatic, hearing grossly normal bilaterally, nasal mucous membranes and turbinates normal and moist oral mucous membranes Eyes PERRL, EOMs intact bilaterally and conjunctivae normal Neck full ROM, no lymphadenopathy and supple Lymph Lymphatic: no lymphadenopathy noted Chest inspection of chest normal Resp normal respiratory effort, normal air movement, no use of accessory muscles and clear to auscultation bilaterally Cardio regular rate, regular rhythm, no murmurs and peripheral pulses 2+ throughout GI GI Narrative: Abdomen mildly distended but soft and nontender to palpation. PEG tube site appears clean and dry, no gross abnormalities noted. Back/Spine normal ROM Extremity normal to inspection and no pedal edema Skin no rashes or lesions noted Results Lab / Micro Data 01/02/23 10:05 01/02/23 10:05 Labs: Laboratory Results - last 24 hr 01/02/23 10:05: WBC 21.7 H, RBC 4.54, Hgb 9.5 L, Hct 38.0, MCV 83.7, MCH 20.9 L, MCHC 25.0 L, RDW Std Deviation 65.4 H, RDW Coeff of Carissa 22.0 H, Plt Count 331, MPV 10.1, Immature Gran % (Auto) 0.600, Neut % (Auto) 79.8 H, Lymph % (Auto) 13.4 L, [place] % (Auto) 5.3, Eos % (Auto) 0.6, Baso % (Auto) 0.3, Absolute Neuts (auto) 17.3 H, Absolute Lymphs (auto) 2.91, Nucleated RBC % 0, Differential Comment SCANNED, Hypochromasia 1+, Anisocytosis 2+, Microcytosis 1+, Macrocytosis 1+, PT 14.2, INR 1.1, APTT 23.0 L, D-Dimer Quant (PE/DVT) 0.65 H*, Sodium 142, Potassium 3.4 L, Chloride 101, Carbon Dioxide 34.0 H, Anion Gap 7, BUN 19 H, Creatinine 1.13 H, Estim Creat Clear Calc 33.94, Est GFR (MDRD) Af Amer 60, Est GFR (MDRD) Non-Af 49 L, BUN/Creatinine Ratio 16.8, Glucose 222 H, Calcium 8.5, Troponin I High Sens 22 01/02/23 12:35: Urine Color Yellow, Urine Clarity Sl. Cloudy, Urine pH 6.0, Ur Specific [place] 1.015, Urine Protein 30 H, Urine Glucose (UA) Normal, Urine Ketones Negative, Urine Occult Blood 50 H, Urine Nitrite Positive H, Urine Bilirubin Negative, Urine Urobilinogen Normal, Ur Leukocyte Esterase 500 H, Urine RBC 0-5 SEEN, Urine WBC 25-50 SEEN, Ur Squamous Epith Cells 0 SEEN, Urine Bacteria 1+, Urine Mucus 0 SEEN 01/02/23 13:20: Troponin I High Sens 25 Imagaing Radiology Impression Chest X-Ray 01/02/23 11:30 IMPRESSION: No suspicious acute cardiopulmonary pathology and no significant interval change considering rotated chest positioning when compared to 05/18/2022. Electronically Signed: Bc Vivar MD at 11:55 EST Reading Location ID and State: [facility] / [place] , Service support , Assessment & Plan Assessment/Plan (1) Sepsis: (2) Acute confusion: PLAN: Plan Patient is a 77-year-old female who presented to [facility] ED on 12/25/2022 from her long term for chest discomfort and confusion. 1. Sepsis without shock, history of recurrent UTI with multiple allergies to antibiotics WBC count 21 on admit, low-grade fever with Tmax 100.6 F in the ED. UTI appears to be the most likely source of infection but cannot rule out another infectious source. UA showed positive nitrites, 500 leukocyte esterase, 25-50 WBCs, 1+ bacteria. Chest x-ray nonacute. CT head nonacute as noted below. No significant abdominal pain or tenderness on palpation. Lactate 2.7 in the ED. Patient notably has history of recurrent UTIs. Last documented UTI was in 01/2022, grew Proteus that was resistant to Macrobid and pansensitive E. coli. Had UTI in 04/2021 and grew Klebsiella that was resistant to Macrobid and ampicillin. Patient has reported allergies to penicillins, cephalosporins, fluoroquinolones and vancomycin. Was treated with aztreonam on previous admission for UTI. ? Admit under inpatient status to PCU. CT abdomen pelvis with IV contrast completed, read pending. Will treat with aztreonam for now. Follow-up blood cultures and urine culture. Monitor CBC. Trend lactate. 2. Acute metabolic encephalopathy; known history of dementia with debility Most likely secondary to sepsis as noted above. Patient was alert but not answering questions appropriately on my interview. Per patient son, patient is significantly altered from her baseline and this is consistent with her mental status changes with previous urinary tract infections. CT head negative in ED. Notably has known history of dementia with debility, resides in a long term. ? Treat sepsis as noted above. Monitor mental status. Avoid sedating medications. PT/OT/case management consulted. 3. Dysphagia with PEG tube in place Patient noted to have severe oropharyngeal dysphagia on MBSS during hospital ization in April 2021, had PEG tube placed at that time. Son states that she has been able to eat a modified diet without issue over the past few months. Apparently receives tube feeds intermittently for supplemental nutrition, unclear on how often she receives these tube feeds. Notably, PEG tube was dislodged at her long term on 12/29 and she was brought into the ED for this. Dr. Cárdenas placed a new PEG tube at the bedside without issue at that time. Epigastric contents were aspirated and flushed easily, determined there was no need for KUB to confirm placement. ? Speech therapy consulted. Will keep patient n.p.o. until evaluated by speech therapy given high concern for aspiration while patient is altered. Will hold on tube feeds for now. Nutrition consulted. Okay to use PEG tube for medications as needed. 4. Chest pain, improved Patient reported chest pain at long term prior to admission. Also reported mild chest pain to me during our interview, but is confused as noted above and per son, patient often reports this concern. Troponin negative x 2. No EKG changes noted. Vital signs stable. ? ACS ruled out. Monitor. No further workup needed at this time. Chronic medical conditions: ? History of CAD s/p CABG in 2010 and stenting in 2013, history of PAD, kelly tolic heart failure, hypertension, hyperlipidemia: Continue home amlodipine, atorvastatin, Lasix, hydralazine. ? Paroxysmal atrial fibrillation: Continue home Eliquis and amiodarone. ? Type 2 diabetes with neuropathy: Does not appear to be on any home diabetes medications. Previous A1c values have been between 5.5 and 7. BG 222 on admission. Sliding scale insulin while inpatient. Continue home gabapentin and duloxetine. DVT prophylaxis: Eliquis CODE STATUS: DNR CCA, DO NOT INTUBATE Expected disposition: Back to long term, TBD Total clinical time spent by myself addressing the patient's medical issues, reviewing all the data, and collaborating with patient's care team: 55 minutes. Charges/Coding Visit Charges Inpatient E&M: 08057 Init Hosp L2
[2023-01-02 15:30] LABS: Lactic Acid 2.7 mmol/L (0.4-1.9)
--- NOTE | 2023-01-02 18:32 | CT_ITS ---
We are attempting to reach an attending provider to discuss findings. An addendum with communication details will be sent when the communication is complete. STUDY: CT ABDOMEN AND PELVIS WITH CONTRAST REASON FOR EXAM: Female, 77 years old. r/o intraabdominal infection RADIATION DOSAGE (If Supplied By Facility): CTDIvol = ( 28.06 ) mGy, DLP = ( 1730.78 ) mGycm TECHNIQUE: Transaxial images were obtained from the dome of the diaphragm to the symphysis pubis without oral contrast. IV 100mL [id number]-[id number] was administered. Sagittal and coronal images were reconstructed. Individualized dose optimization techniques were used for this CT. COMPARISON: 05/03/2021 FINDINGS: Some dependent bibasilar atelectasis. Cardiomegaly. Normal liver. There is non-visualization of the gallbladder, which may be secondary to either contraction or a prior cholecystectomy. Normal spleen. Normal pancreas. Normal bilateral adrenal glands. 10 mm nonobstructing stone in the midsection of right kidney. No hydronephrosis, ureteral stone, ureteral dilatation. Normal left kidney. Percutaneous gastrostomy tube with pneumoperitoneum surrounding the entry site of the antrum of the stomach and the tip of the catheter in the fundus of the stomach. This is likely recently placed. Normal small intestine. Normal colon. There is non-visualization of the appendix. There is diffuse atherosclerotic calcification of the abdominal aorta, without a demonstrated aneurysm. Normal inferior vena cava. Normal retroperitoneum. Normal urinary bladder. Normal abdominal wall. Right femoral neck compression screw. CT/Abdomen/Pelvis W IV Cont ONLY IMPRESSION: 1. Suspect recent placement of percutaneous gastrostomy tube with pneumoperitoneum. Clinical correlation is recommended. 2. 10 mm nonobstructing right renal stone. Electronically Signed: Krunal Payne MD at 20:39 EST ,
[2023-01-02 18:52] LABS: Reflex Lactate? Y
[2023-01-02 20:12] LABS: Hemoglobin A1c 6.7 % (3.8-5.6)
[2023-01-02] MEDS: Aztreonam 2 GM in 0.9% Normal Saline (100mL MB+) 100 ML IV (21:05)
[2023-01-02 21:12] LABS: Lactic Acid 1.5 mmol/L (0.4-1.9)
[2023-01-02] MEDS: Insulin Lispro 100 UNIT/ML INSULN.PEN SC (21:22)
--- NOTE | 2023-01-02 22:41 | PCM.HOSP.N ---
Hospitalist Note Noted by nursing that patient is having blood come out of the PEG tube. It was a coming out passively without any suction the nurse suctioned up a syringe full of blood. Went to evaluate the patient and patient is confused but when I examine her belly, it was not distended but exquisitely tender throughout. Patient Elieser was showing signs of significant pain. Is unclear if the tube is actually in the appropriate place. Will hold off in any further manipulation of the PEG tube at this time. I did discuss the case with Dr. Guillen, who previously reviewed the CAT scan findings of pneumoperitoneum with Dr. Valenzuela. Dr. Valenzuela will evaluate the patient tomorrow. I did discuss with nursing that if the patient's abdominal pain is worse or becomes more distended we may need to repeat imaging. In the meantime, will not use a PEG tube, hold off any anticoagulation and continue with antibiotics as ordered.
[2023-01-03] VITALS (25 sets, daily range): BP systolic 101–181; BP diastolic 37–98; PULSE 71–93; RESP 13–28; TEMP 36.5–37.3; O2SAT 91–100
[2023-01-03 00:32] LABS: Bedside Glucose 186 mg/dL (74-106)
[2023-01-03] MEDS: Insulin Lispro 100 UNIT/ML INSULN.PEN SC (05:50)
[2023-01-03] MEDS: Aztreonam 2 GM in 0.9% Normal Saline (100mL MB+) 100 ML IV (05:51)
[2023-01-03 06:00] LABS: Bedside Glucose 191 mg/dL (74-106)
--- NOTE | 2023-01-03 07:27 | EX.PCM.CON.S ---
Assessment & Plan Assessment/Plan (1) Malfunction of gastrostomy tube: (2) Perforated stomach: PLAN: Plan The patient had her G-tube dislodged 4 days ago and had it replaced in the emergency room. The patient presented back to the emergency room with confusion was found to have a UTI. CT scan revealed some pneumoperitoneum around the PEG tube entry site. Overnight they harini back and got blood from the G-tube. I reviewed the CT images this morning and what is more concerning is that the tip of the catheter appears to be perforated through the greater curvature of the stomach and into the spleen. I think the patient needs emergency surgery to correct this. I discussed that with the patient's son as the patient is confused from her UTI. I discussed performing exploratory laparoscopy with attempted repair of the stomach and replacement with a new G-tube. I am also getting her type and cross for unit. I also discussed that there may be a need for splenectomy if I am unable to stop the bleeding from the spleen once the tube was removed. I discussed the other risks of surgery including but not limited to bleeding, infection, injury to other organs, need for conversion to open surgery and need for splenectomy. Patient's son understands all the risks and consented for surgery. I discussed with the patient as well and she is in agreement. Xavier Valenzuela MD Pager: [facility] [address] [place] [address], [address] [place] [address] Office: HPI Consult Data Date of Consult: 01/03/23 HPI Narrative HPI Narrative: SINA VIZCARRA, is a 77 F who presents with confusion. She was here 4 days ago and had to have her G-tube replaced. She was found to have a UTI and admitted to the floor. CT scan revealed some pneumoperitoneum. Overnight there was also difficulty with the tube as blood was aspirated from it. [facility] Medical History (Updated 01/03/23 @ 07:[address] 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 Chronic GI bleeding CPAP (continuous positive airway pressure) dependence Dementia Diabetic ulcer of both lower extremities Diastolic CHF Dysphagia Essential hypertension Former smoker GERD (gastroesophageal reflux disease) History of DVT (deep vein thrombosis) Hyperlipidemia Hypertension Iron deficiency anemia senior living current use of amiodarone Multiple sclerosis LAURITA (obstructive sleep apnea) Paroxysmal atrial fibrillation Peripheral vascular disease Presence of stent in coronary artery (~08/29/12) Restrictive airway disease Swallowing dysfunction Trigeminal neuralgia Type 2 diabetes mellitus Ulcer of left lower extremity with fat layer exposed Ulcer of right lower extremity with fat layer exposed Venous insufficiency of both lower extremities Home Medications albuterol sulfate 2.5 mg/3 mL (0.083 %) solution for nebulization 2.5 mg (3 mL) inhalation Q2H PRN PRN SOB/Wheezing 08/12/19 [Rx Last Taken Unknown] amiodarone 200 mg tablet 100 mg PO DAILY heart 11/22/21 [History Last Taken Unknown] amlodipine 2.5 mg tablet 2.5 mg PO DAILY HTN 11/22/21 [History Last Taken Unknown] duloxetine 30 mg capsule,delayed release 60 mg PO DAILY depression 11/22/21 [History Last Taken Unknown] lactose-reduced food with fiber 0.06 gram-1.5 kcal/mL oral liquid (Jevity 1.5 Laureano) 250 ml G-tube 4X/DAY #0 mL 11/25/21 [Rx Last Taken Unknown] acetaminophen 325 mg tablet 650 mg PO Q6H PRN PAIN AND FEVER 01/31/22 [History Last Taken Unknown] bisacodyl 10 mg rectal suppository 10 mg MI DAILY PRN Constipation 01/31/22 [History Last Taken Unknown] carbamazepine 200 mg/10 mL oral suspension 200 mg PO BID 01/31/22 [History Last Taken Unknown] d-mannose 500 mg capsule 2,000 mg PO DAILY 01/31/22 [History Last Taken Unknown] estradiol 0.01% (0.1 mg/gram) vaginal cream 1 applic vaginal QPM UTI 01/31/22 [History Last Taken Unknown] furosemide 40 mg tablet 40 mg PO DAILY 01/31/22 [History Last Taken Unknown] gabapentin 300 mg capsule 600 mg PO TID 01/31/22 [History Last Taken Unknown] guaifenesin 100 mg tablet 600 mg PO Q12H 01/31/22 [History Last Taken Unknown] hydroxyzine HCl 25 mg tablet 25 mg PO Q8 PRN ITCHY RASH ON UPPER AND LOWER EXTREMITIES 01/31/22 [History Last Taken Unknown] magnesium hydroxide 400 mg/5 mL oral suspension (Milk of Magnesia) 30 ml PO DAILY PRN Constipation 01/31/22 [History Last Taken Unknown] mineral oil 118 ml MI DAILY PRN Constipation 01/31/22 [History Last Taken Unknown] ondansetron HCl 4 mg tablet 4 mg PO Q6H PRN Nausea And Vomiting 01/31/22 [History Last Taken Unknown] polyethylene glycol 3350 17 gram/dose oral powder 17 g PO DAILY 01/31/22 [History Last Taken Unknown] mupirocin 2 % topical ointment 1 applic topical TID #0 grams 02/03/22 [Rx Last Taken Unknown] nystatin 100,000 unit/gram topical powder (Nyamyc) 1 applic topical TID #0 grams 02/03/22 [Rx Last Taken Unknown] apixaban 2.5 mg tablet 5 mg PO BID DVT 05/19/22 [History Last Taken Unknown] atorvastatin 20 mg tablet 20 mg PO QHS cholesterol 05/19/22 [History Last Taken Unknown] hydralazine 50 mg tablet 50 mg PO TID bp 05/19/22 [History Last Taken Unknown] Allergy/AdvReac Type Severity Reaction Status Date / Time codeine Allergy Unknown Hives Verified 01/02/23 09:55 cefazolin Allergy Rash Verified 01/02/23 09:55 ciprofloxacin [From Cipro] Allergy Hives Verified 01/02/23 09:55 ciprofloxacin HCl Allergy Hives Verified 01/02/23 09:55 [From Cipro] Latex, Natural Rubber Allergy Rash Verified 01/02/23 09:55 Penicillins [PCN] Allergy Hives Verified 01/02/23 09:55 vancomycin Allergy Angioedema Verified 01/02/23 09:55 adhesive tape AdvReac Rash Verified 01/02/23 09:55 Family History Father Heart disease Cancer prostate Mother Hypertension Cancer mets but unsure where to Breast cancer Brother Diabetes Hypertension Surgical History (Updated 01/02/23 @ 16:38 by Maria Isabel Baird) History of appendectomy History of cataract surgery History of cholecystectomy History of cholecystectomy History of coronary artery bypass surgery (~01/02/11) History of coronary artery stent placement History of hernia repair History of tonsillectomy and adenoidectomy History of total hysterectomy Presence of coronary angioplasty implant and graft (~08/29/12) S/P percutaneous endoscopic gastrostomy (PEG) tube placement Social History housing: halfway Smoking Status: Former smoker how long ago did patient quit smokin alcohol intake: never substance use type: does not use caffeine: Yes Type: coffee Number of servings: 1 additional social history: DOES NOT USE ASPIRIN DOES US IBUPROFEN ROS Review of Systems ROS Unobtainable: due to mental status Physical Exam Const no apparent distress HEENT normocephalic Eyes PERRL Resp normal respiratory effort Cardio Rate: regular rate Rhythm: regular rhythm GI soft to palpation Inspection: Negative for abdominal distention Palpation: tender epigastric and LUQ Lab / Micro Data 01/02/23 10:05 01/02/23 10:05 Labs: Laboratory Results - last 24 hr 01/02/23 10:05: WBC 21.7 H, RBC 4.54, Hgb 9.5 L, Hct 38.0, MCV 83.7, MCH 20.9 L, MCHC 25.0 L, RDW Std Deviation 65.4 H, RDW Coeff of Carissa 22.0 H, Plt Count 331, MPV 10.1, Immature Gran % (Auto) 0.600, Neut % (Auto) 79.8 H, Lymph % (Auto) 13.4 L, Cedar % (Auto) 5.3, Eos % (Auto) 0.6, Baso % (Auto) 0.3, Absolute Neuts (auto) 17.3 H, Absolute Lymphs (auto) 2.91, Nucleated RBC % 0, Differential Comment SCANNED, Hypochromasia 1+, Anisocytosis 2+, Microcytosis 1+, Macrocytosis 1+, PT 14.2, INR 1.1, APTT 23.0 L, D-Dimer Quant (PE/DVT) 0.65 H*, Sodium 142, Potassium 3.4 L, Chloride 101, Carbon Dioxide 34.0 H, Anion Gap 7, BUN 19 H, Creatinine 1.13 H, Estim Creat Clear Calc 33.94, Est GFR (MDRD) Af Amer 60, Est GFR (MDRD) Non-Af 49 L, BUN/Creatinine Ratio 16.8, Glucose 222 H, Hemoglobin A1c 6.7 H, Calcium 8.5, Troponin I High Sens 22 01/02/23 12:35: Urine Color Yellow, Urine Clarity Sl. Cloudy, Urine pH 6.0, Ur Specific [place] 1.015, Urine Protein 30 H, Urine Glucose (UA) Normal, Urine Ketones Negative, Urine Occult Blood 50 H, Urine Nitrite Positive H, Urine Bilirubin Negative, Urine Urobilinogen Normal, Ur Leukocyte Esterase 500 H, Urine RBC 0-5 SEEN, Urine WBC 25-50 SEEN, Ur Squamous Epith Cells 0 SEEN, Urine Bacteria 1+, Urine Mucus 0 SEEN 01/02/23 13:20: Troponin I High Sens 25 01/02/23 14:45: Lactic Acid 2.7 H* 01/02/23 20:18: Lactic Acid 1.5 01/02/23 21:21: POC Glucose 186 H 01/03/23 05:31: POC Glucose 191 H Imagaing Radiology Impression Chest X-Ray 01/02/23 11:30 IMPRESSION: No suspicious acute cardiopulmonary pathology and no significant interval change considering rotated chest positioning when compared to 05/18/2022. Electronically Signed: Bc Vivar MD at 11:55 EST , Brain CT 01/02/23 14:24 IMPRESSION: 1[address] No [address] evidence of intracranial bleeding, acute ischemic infarct or acute intracranial abnormality. 2. Confluent chronic white matter ischemic changes in both cerebral hemispheres. 3. No significant interval change when compared to 04/26/2021. Electronically Signed: Bc Vivar MD at 15:57 EST , Abdomen/Pelvis CT 01/02/23 18:32 IMPRESSION: 1. Suspect recent placement of percutaneous gastrostomy tube with pneumoperitoneum. Clinical correlation is recommended. 2. 10 mm nonobstructing right renal stone. Electronically Signed: Krunal Payne MD at 20:39 EST , ADDENDUM: 01/02/232136 IMPRESSION: 1. Suspect recent placement of percutaneous gastrostomy tube with pneumoperitoneum. Clinical correlation is recommended. 2. 10 mm nonobstructing right renal stone. N.B. : The above Results were Read Back by Krunal Payne MD to sergio paul RN, and understanding confirmed on 01/02/2023 21:30:43 (ET). Electronically Signed: Krunal Payne MD at 20:39 EST ,
[2023-01-03] MEDS: Gentamicin IV 310 MG in Dextrose 5%-Water (50mL Bag) 50 ML 100 MG IVPB (07:56)
[2023-01-03] MEDS: 0.9% Normal Saline (1000mL) 1,000 ML 15 ML IV (08:00)
--- NOTE | 2023-01-03 08:00 | STO_PTH ---
PATIENT: SINA VIZCARRA LOC: [facility] U#:[id number] AGE/SX: 77/F ROOM: [facility] RE01/02/[address]: Dr. Yolis Madsen MD : 1945 BED: 1 DIS: 01/09/2023 SPEC #: [id number] RECD: 01/03/23 13:56 STATUS: RENARD FORDE #: [id number] GERALDO: 01/03/23 08:[address]: Xavier Valenzuela DEPT: SURGICAL PATHOLOGY RECD BY: Nahed Fragoso ENTERED: 01/04/23 10:58 SP TYPE: STOMACH BX OTHR DR: MD Dr. Viraj Ohara DO Dr. Nana Yaa Koram, MD Dr. Paul Nielsen, MD Tissues: Stomach, NOS Procedures: Surgery Specimen Level V Comments: @ Ordering doctor for SUIV edited from to @ nicolas MCCOY at 01/05/23 0735 @ Submitting doctor edited from to @ by JAZMÍNOD at 01/05/23 0735 HEADER OPERATION: Laparoscopic replacement of G tube and repair of stomach PRE-OP DIAGNOSIS: Sepsis, acute confusion TISSUE SUBMITTED: Segment of stomach MICROSCOPIC DIAGNOSIS Stomach, segmental resection: Focal mucosal ulceration with associated acute and chronic inflammation. Fibrinopurulent material. Chronic gastritis. Acute serositis. See comment. AM:vania 01/05/2023 COMMENT The results of immunohistochemistry for Helicobacter pylori will be reported separately ([id number]). MICROSCOPIC DESCRIPTION Slides are reviewed. GROSS DESCRIPTION Received in fixative is one container labeled with the patient's name and designated segment of stomach. The specimen consists of a portion of tavarez stomach measuring 4.5 x 1.5 x 1.0 cm. The specimen is stapled along its long axis. Serial sections do not reveal mass lesions. The specimen is serially sectioned and totally submitted in three cassettes. / AM:vania 01/04/2023 TC:2 CPT: 99409
--- NOTE | 2023-01-03 08:00 | IMM_PTH ---
PATIENT: SINA VIZCARRA LOC: [facility] U#:[id number] AGE/SX: 77/F ROOM: [facility] RE01/02/[address]: Dr. Yolis Madsen MD : 1945 BED: 1 DIS: 01/09/2023 SPEC #: [id number] RECD: 01/05/23 07:34 STATUS: RENARD RERickey #: [id number] GERALDO: 01/03/23 08:[address]: Xavier Valenzuela DEPT: IMMUNOHISTOCHEMISTRY RECD BY: Caryl Chatman ENTERED: 01/05/23 07:35 SP TYPE: IMMUNO OTHR DR: DO Dr. Yolis Head MD Dr. Paul Nielsen, MD Tissues: Stomach, NOS Procedures: H Pylori (initial) PHYSICIAN & INSTITUTION [place] [address] SPECIMEN INFORMATION: Tissue Source: Segment of stomach Clinical Info: Sepsis, acute confusion Specimen Number: [id number] #[id number] CPT code: 25506 METHODOLOGY: Deparaffinized sections of prefer/formalin-fixed tissue or PAP/DQ stained slides are incubated with monoclonal/polyclonal antibodies/oligonucleotide probes. Localization is made via biotin free immunoperoxidase method. Appropriate controls are performed and reacted as expected. Results on target cell population are indicated in the following table: RESULTS: ANTIBODY / CLONE RESULT Block 1 H Pylori (polyclonal) negative These tests were developed and their performance characteristics determined by [facility]. They may not have been cleared or approved by the U.S. Food and Drug Administration. The FDA has determined that such clearance or approval is not necessary. The above immunohistochemical/dualISH markers are ordered and reviewed by the Pathologist. INTERPRETATION: Segment of stomach: Negative for Helicobacter pylori organisms. AM/melody 01/05/2023
[2023-01-03 08:05] LABS: Hematocrit 34.9 % (37-47); Hemoglobin 9.1 g/dL (12.0-15.0); Mean Corp Hgb Conc 26.1 g/dL (32-36); Mean Corpuscular Hgb 21.1 pg (27.0-32.0); Mean Platelet Vol. 10.2 fl (6.2-12.0); POSITIVE MORPHOLOGY YES; Platelet Count 313 K/mm3 (150-450); RBC Distribution Width CV 22.1 % (11.6-14.6); RBC Distribution Width SD 64.7 fl (35.1-43.9); Red Blood Count 4.31 M/mm3 (4.2-5.4); White Blood Count 22.4 K/mm3 (4.4-11.0)
--- NOTE | 2023-01-03 08:05 | NURSING ---
Arleen krishnamurthy taken off rt hand for surgery, Pcu called and ring sent back to the unit so it can be given back to pt after surgery.
[2023-01-03] MEDS: Clindamycin 900 MG/50 ML BAG 75 MG IV (08:30)
[2023-01-03 08:42] LABS: BUN 19 mg/dL (7-18); Glucose 198 mg/dL (74-106)
[2023-01-03 08:43] LABS: Anion Gap 5 (5-15); BUN/Creat Ratio 18.6 RATIO (10-20); Calcium,Total 8.8 mg/dL (8.5-10.1); Chloride 103 mmol/L (98-107); Creatinine, Serum 1.02 mg/dL (0.55-1.02); EST Glomerular Filtration Rate 56 mL/min (>60); Est Glom Filt Rate - Afr Amer 68 mL/min (>60); Estimated Creatinine Clearance 32.65 ml/min; Potassium 3.3 mmol/L (3.5-5.1); Sodium Level 141 mmol/L (136-145)
[2023-01-03 08:47] LABS: Scan Indicated on CBC? Y/N YES- FLAGS NOTED
--- NOTE | 2023-01-03 08:53 | NURSING ---
0853 Report called to ICU nurse
--- NOTE | 2023-01-03 08:54 | CASEMGMT ---
Discharge Planning Updates sent to [facility] via [facility]. Lakisha Caicedo, Discharge Planning Asst.
[2023-01-03] MEDS: Bupivacaine Mpf 0.5% 30 ML VIAL (10:35)
[2023-01-03 11:13] LABS: Differential Comment SCANNED
--- NOTE | 2023-01-03 11:13 | OP.PCM_ITS ---
Report of Operation Date of Procedure: 01/03/23 Pre-Operative Diagnosis: Perforated stomach Post-Operative Diagnosis: Perforated stomach Surgery/Procedure Performed:: Exploratory laparoscopy with partial gastric resection and replacement of G-tube Type of Anesthesia: General/Regional Specimen's removed: Stomach segment Drains: СЕРГЕЙ to bulb suction Estimated Blood Loss (mL): 40 Description of Procedure: Patient was brought back to the operating room and general anesthesia was induced. A Casillas catheter was placed. The patient became hypotensive and fluid boluses were given and I placed a left radial art line in the OR. After fluids the patient's blood pressure did come up but she did require some pressors. Next the abdomen was prepped and draped in usual sterile fashion. A midline incision was made and the fascia was elevated and incised. A port was placed into the abdomen and the abdomen was insufflated to 15 mmHg. Patient was placed in steep reverse Trendelenburg position. 5 mm ports placed in the epigastric region and the Stewart liver retractor was positioned. Next under direct visualization 3 other 5 mm ports were placed. The stomach PEG tube entry site was inspected. It appeared in good shape with no signs of trauma or injury. The stomach was tightly adherent to the anterior abdominal wall. The left upper quadrant was inspected and it appeared that there was some inflammation from the fat to the anterior abdominal wall. This was all loosely dissected. After the stomach was elevated there was some purulent material. The area was investigated until the area of perforation was identified and I did have the distal tip of the feeding tube protruding through it. Next the feeding tube was left in place to keep the hole identified. The stomach was dissected free as greater curvature using harmonic scalpel. There was some bleeding from the spleen that was controlled with argon beam and Surgicel and fibrillar. Most of it was oozing and not arterial bleeding. The old feeding tube was desufflated and removed. A new 20 Lebanese G-tube was placed into the stomach and the balloon was insufflated under direct visualization and was brought up to the abdominal wall and the bolster was placed down. Next after the stomach was fully dissected free and mobilized from its upper greater curvature a stay suture of 3-0 silk was placed over the perforation. The stay suture was then elevated and using [place] stapler this segment of the stomach was stapled across and removed. The staple line looked in good condition. The area in the left upper quadrant was irrigated and suctioned dry. There was some slow oozing and so platelets were ordered. It seemed that the bleeding was under control. There was irrigated and suctioned once more. Next a drain was placed in the left upper quadrant through the lateral left incision and then the port was removed and it was sutured to the skin using 3-0 nylon. The drain was brought up to the left upper quadrant and placed next to the stomach and into the splenic area as well. Next all the ports were removed and the abdomen was allowed to desufflate. The midline fascia was closed with interrupted 0 Vicryl suture. The skin incisions were injected with local anesthetic and closed with interrupted 4-0 Monocryl sutures. Steri-Strips and bandages were applied. NG was placed and then the patient was awoken and taken to PACU. She will be in ICU for observation. Casillas will remain in place. Grafts/Implants Used: 20 Lebanese replacement gastrostomy tube Admit VTE Documentation VTE Mechan Device Prophylaxis: SCD's
[2023-01-03] MEDS: fentaNYL 100 MCG/2 ML Ampul 50 MCG IV ×2 (12:09→15:10)
[2023-01-03] MEDS: 0.9% Saline Lock 10 ML Syringe IV (12:09)
--- NOTE | 2023-01-03 12:52 | EKG12_ITS ---
Test Reason : RHYTHM CHANGE Blood Pressure : / mmHG Vent. Rate : 076 BPM Atrial Rate : 076 BPM P-R Int : 164 ms QRS Dur : 084 ms QT Int : 382 ms P-R-T Axes : 046 004 153 degrees QTc Int : 429 ms Normal sinus rhythm ST & T wave abnormality, consider lateral ischemia Abnormal ECG No previous ECGs available Confirmed by BLACK HATCH, PARDEEP ([id number]), multimedia editor BOBBY VELA ([id number]) on 01/05/2023 9:14:11 AM Referred By: AMBER Confirmed By:PARDEEP CLEANING MD
[2023-01-03] MEDS: Cefepime HCl 1 GM in 0.9% Normal Saline (50mL MB+) 50 ML IV ×2 (13:25→22:50)
[2023-01-03 14:01] LABS: Troponin-I HS 35 pg/mL (3.0-54.0)
--- NOTE | 2023-01-03 14:22 | PN_ITS ---
Subjective Subjective Patient seen and examined. She was admitted with a complaint of altered mental status. PEG tube was malfunctioning. She was taken emergently to surgery due to concerns about pneumoperitoneum. SHe had exploratory laparoscopy with partial resection and replacement of G tube. SHe was transferred to the ICU afterwards. Her daughter in law was by her bedside. She denied any cough, chest pain, palpitations, dizziness, nausea, vomiting or diarrhea. Review of systems is otherwise negative. She has remained hemodynamically stable. Objective Data Objective Data Vital Signs: Vital Signs Temp Pulse Resp BP Pulse Ox O2 Del Method O2 Flow Rate 98 F 80 16 131/54 H 98 Nasal Cannula 6 01/03/23 03:00 01/03/23 03:00 01/03/23 03:00 01/03/23 03:00 01/03/23 12:24 01/03/23 12:24 01/03/23 12:24 Oxygen Flow Rate (L/min) 6 Oxygen Delivery Method Nasal Cannula Weight: 188 lb 7.924 oz Body Mass Index (BMI) 36.8 Intake & Output: Intake and Output for Last 24 Hours 01/01/23 01/02/23 01/03/23 23:59 23:59 23:59 Intake Total 100 / 100 207.75 / 207.75 Output Total 875 / 875 Balance 100 / -250 -667.25 / -667.25 Lab / Micro Data 01/03/23 07:10 01/03/23 07:10 Labs: Laboratory Results - last 24 hr 01/02/23 10:05: Hemoglobin A1c 6.7 H 01/02/23 14:45: Lactic Acid 2.7 H* 01/02/23 20:18: Lactic Acid 1.5 01/02/23 21:21: POC Glucose 186 H 01/03/23 05:31: POC Glucose 191 H 01/03/23 07:10: WBC 22.4 H, RBC 4.31, Hgb 9.1 L, Hct 34.9 L, MCV 81.0, MCH 21.1 L, MCHC 26.1 L, RDW Std Deviation 64.7 H, RDW Coeff of Carissa 22.1 H, Plt Count 313, MPV 10.2, Differential Comment SCANNED, Sodium 141, Potassium 3.3 L, Chloride 103, Carbon Dioxide 33.0 H, Anion Gap 5, BUN 19 H, Creatinine 1.02, Estim Creat Clear Calc 32.65, Est GFR (MDRD) Af Amer 68, Est GFR (MDRD) Non-Af 56 L, BUN/Creatinine Ratio 18.6, Glucose 198 H, Calcium 8.8, Blood Type A POSITIVE, Antibody Screen NEGATIVE, Crossmatch See Detail 01/03/23 13:34: Troponin I High Sens 35 Micro: Microbiology 01/02/23 12:35 Urine Catheter - Catheter Urine Culture - Preliminary GNR lactose evp strategy Gram negative james Radiography Diagnostic Testing: Radiology Impression Brain CT 01/02/23 14:[address]PRESS[address]: 1[address] No [address] evidence of intracranial bleeding, acute ischemic infarct or acute intracranial abnormality. 2. Confluent chronic white matter ischemic changes in both cerebral hemispheres. 3. No significant interval change when compared to 04/26/2021. Electronically Signed: Bc Vivar MD at 15:57 EST Reading Location ID and State: [facility] / [place] , Service support , Abdomen/Pelvis CT 01/02/23 18:32 IMPRESSION: 1. Suspect recent placement of percutaneous gastrostomy tube with pneumoperitoneum. Clinical correlation is recommended. 2. 10 mm nonobstructing right renal stone. Electronically Signed: Krunal Payne MD at 20:39 EST , ADDENDUM: 01/02/232136 IMPRESSION: 1. Suspect recent placement of percutaneous gastrostomy tube with pneumoperitoneum. Clinical correlation is recommended. 2. 10 mm nonobstructing right renal stone. N.B. : The above Results were Read Back by Krunal Payne MD to sergio paul RN, and understanding confirmed on 01/02/2023 21:30:43 (ET). Electronically Signed: Krunal Payne MD at 20:39 EST , Physical Exam Const alert, oriented x3 and no apparent distress General Appearance: cooperative HEENT normocephalic, head/scalp atraumatic, moist oral mucous membranes and oropharynx normal Neck no lymphadenopathy and supple Resp Resp Narrative: mildly diminished breath sounds bibasally, no wheezes or crackles. On 6L of oxygen by nasal canula Cardio regular rate, regular rhythm, S1 normal heart sound, S2 normal heart sound and no murmurs GI GI Narrative: abdominal binder in place Extremity normal capillary refill Extremity Narrative: LUE edematous, nontender, seems to be due to IV infiltration. General Extremity: no tenderness to palpation of joints or extremities Skin General Skin Exam: no breakdown Neuro CN's II-XII intact bilaterally, no focal motor deficits and no sensory deficits noted Motor Exam: general weakness Psych thought process normal, cooperative and affect normal Appearance: appropriate Assessment & Plan Assessment/Plan (1) Perforated stomach: (2) Sepsis: (3) Urinary tract infection: (4) Malfunction of gastrostomy tube: PLAN: Plan #Sepsis * was thought to be due to recurrent UTI * wbc was elevated on admission. * however, patient started bleeding from her PEG tube and CT scan showed evidence of pneumoperitoneum, with PEG tube thought to be in spleen. * PEG tube had been noted to be dislodged and she was brought to the ED, where PEG tube was replaced. * Taken emergently for surgery today and had exploratory laparoscopy with partial gastric resection and placement of G-tube. * Was on IV aztreonam. Will DC aztreonam as it gives only gram-negative coverage and started on IV cefepime as she will get gram-negative and anaerobic coverage. * Blood cultures ordered and pending. Breathing treatments bronchodilators. * #Malfunctioning PEG tube: As above #Acute encephalopathy: Improved. Patient able to answer questions now. CT of the brain was negative for any acute intracranial pathology. Does have baseline dementia and lives in a intermediate. Will monitor. #Severe oropharyngeal dysphagia: * PEG tube in place. To be n.p.o. over the next 48 hours as stomach had to be repaired during the exploratory laparoscopy. Consult speech therapy. Usually on tube feeding, but per general surgery, to keep NPO for now. #Chest pain * reportedly had chest pain at her SNF. * during surgery today, noted to have some ST changes on monitor * EKG done showed some ST changes in lateral leads. * will cycle troponins. * #Hypokalemia: Potassium is 3.3. Will replace and trend. #History of CAD; s/p CABG and stents. #HFpEF: not in exacerbation. #Hypertension: On amlodipine and Lasix as well as hydralazine. #Hyperlipidemia: On amlodipine and hydralazine. #Paroxysmal afib: on amiodarone and eliquis. #Type 2 diabetes mellitus: not on diabetic meds. ISS. Accuchecks ACHS. On gabapentin. DVT prophylaxis: already on eliquis. Charges/Coding Visit Charges Inpatient E&M: 75615 Subs Hosp L3
[2023-01-03] MEDS: Potassium Chloride 10mEq/100mL 10 MEQ/100 ML IV.SOLN. 100 MEQ IV BOLUS ×4 (14:34→21:39)
[2023-01-03 15:16] LABS: Bedside Glucose 150 mg/dL (74-106)
[2023-01-03 15:59] LABS: Hematocrit 28.3 % (37-47); Hemoglobin 7.4 g/dL (12.0-15.0)
[2023-01-03 16:25] LABS: Troponin-I HS 33 pg/mL (3.0-54.0)
[2023-01-03 19:06] LABS: Bedside Glucose 147 mg/dL (74-106)
[2023-01-03 19:19] LABS: Troponin-I HS 33 pg/mL (3.0-54.0)
[2023-01-03 21:42] LABS: Hematocrit 29.9 % (37-47); Hemoglobin 8.2 g/dL (12.0-15.0)
[2023-01-04] VITALS (22 sets, daily range): BP systolic 127–163; BP diastolic 36–104; PULSE 70–89; RESP 13–28; TEMP 36.3–37.2; O2SAT 92–98; BMI 38.6
[2023-01-04] MEDS: Insulin Lispro 100 UNIT/ML INSULN.PEN SC ×2 (02:12→11:00)
[2023-01-04 02:25] LABS: Bedside Glucose 126 mg/dL (74-106)
[2023-01-04 05:24] LABS: Bedside Glucose 160 mg/dL (74-106)
[2023-01-04 05:25] LABS: Absolute Lymphocyte Count 1.54 X10^3/uL (0.83-4.51); Absolute Neutrophil Count 13.3 X10^3/uL (2.0-7.7); Basophil# 0.04 X10^3/uL; Basophil% 0.2 % (0-1); Eosinophil# 0.27 X10^3/uL; Eosinophils% 1.7 % (0-5); Hematocrit 29.8 % (37-47); Hemoglobin 8.3 g/dL (12.0-15.0); Lymphocyte # 1.54 X10^3/ul (0.83-4.51); Lymphocyte % 9.4 % (19-41); Mean Corp Hgb Conc 27.9 g/dL (32-36); Mean Corpuscular Hgb 22.8 pg (27.0-32.0); Mean Corpuscular Volume 81.9 fL (81-99); Mean Platelet Vol. 10.6 fl (6.2-12.0); Monocyte# 1.07 X10^3/uL; Monocyte% 6.6 % (0-10); NRBC Flagged by Analyzer 0 % (0-5); Neutrophil # 13.28 X10^3/uL (2.7-7.7); Neutrophil % 81.4 % (47-70); POSITIVE MORPHOLOGY YES; Platelet Count 288 K/mm3 (150-450); RBC Distribution Width CV 21.1 % (11.6-14.6); RBC Distribution Width SD 62.4 fl (35.1-43.9); Red Blood Count 3.64 M/mm3 (4.2-5.4); White Blood Count 16.3 K/mm3 (4.4-11.0)
[2023-01-04 05:27] LABS: Differential Indicated SCAN CRITERIA MET
[2023-01-04] MEDS: fentaNYL 100 MCG/2 ML Ampul 50 MCG IV ×5 (05:29→20:28)
[2023-01-04 05:47] LABS: Anisocytosis 2+; Differential Comment SCANNED
[2023-01-04 06:07] LABS: Anion Gap 2 (5-15); BUN 16 mg/dL (7-18); BUN/Creat Ratio 17.9 RATIO (10-20); Calcium,Total 8.5 mg/dL (8.5-10.1); Chloride 110 mmol/L (98-107); Creatinine, Serum 0.89 mg/dL (0.55-1.02); EST Glomerular Filtration Rate 65 mL/min (>60); Est Glom Filt Rate - Afr Amer 79 mL/min (>60); Estimated Creatinine Clearance 37.42 ml/min; Glucose 167 mg/dL (74-106); Potassium 4.5 mmol/L (3.5-5.1); Sodium Level 144 mmol/L (136-145)
--- NOTE | 2023-01-04 07:26 | PN.SURG_ITS ---
Subjective Subjective Patient complaining of left upper quadrant pain. Objective Data Objective Data Vital Signs: Vital Signs Temp Pulse Resp BP Pulse Ox O2 Del Method O2 Flow Rate 98.8 F 83 20 H 163/50 H 96 Nasal Cannula 2 01/04/23 04:00 01/04/23 07:00 01/04/23 07:00 01/04/23 07:00 01/04/23 06:00 01/04/23 06:00 01/04/23 06:00 Oxygen Flow Rate (L/min) 2 Oxygen Delivery Method Nasal Cannula Weight: 197 lb 12.074 oz Body Mass Index (BMI) 38.6 Intake & Output: Intake and Output for Last 24 Hours 01/02/23 01/03/23 01/04/23 23:59 23:59 23:59 Intake Total 100 / 100 907.75 / 907.75 Output Total 1375 / 1375 230 / 230 Balance 100 / -250 -467.25 / -467.25 -230 / -230 Lab / Micro Data 01/04/23 05:15 01/04/23 05:40 Labs: Laboratory Results - last 24 hr 01/03/23 07:10: WBC 22.4 H, RBC 4.31, Hgb 9.1 L, Hct 34.9 L, MCV 81.0, MCH 21.1 L, MCHC 26.1 L, RDW Std Deviation 64.7 H, RDW Coeff of Carissa 22.1 H, Plt Count 313, MPV 10.2, Differential Comment SCANNED, Sodium 141, Potassium 3.3 L, Chloride 103, Carbon Dioxide 33.0 H, Anion Gap 5, BUN 19 H, Creatinine 1.02, Estim Creat Clear Calc 32.65, Est GFR (MDRD) Af Amer 68, Est GFR (MDRD) Non-Af 56 L, BUN/Creatinine Ratio 18.6, Glucose 198 H, Calcium 8.8, Blood Type A POSITIVE, Antibody Screen NEGATIVE, Crossmatch See Detail 01/03/23 13:34: Troponin I High Sens 35 01/03/23 14:58: POC Glucose 150 H 01/03/23 15:30: Hgb 7.4 L, Hct 28.3 L, Troponin I High Sens 33 01/03/23 18:47: POC Glucose 147 H 01/03/23 18:55: Troponin I High Sens 33 01/03/23 21:15: Hgb 8.2 L, Hct 29.9 L 01/03/23 21:19: POC Glucose 126 H 01/04/23 02:11: POC Glucose 160 H 01/04/23 05:15: WBC 16.3 H, RBC 3.64 L, Hgb 8.3 L, Hct 29.8 L, MCV 81.9, MCH 22 .8 L, MCHC 27.9 L D, RDW Std Deviation 62.4 H, RDW Coeff of Carissa 21.1 H, Plt Count 288, MPV 10.6, Immature Gran % (Auto) 0.700, Neut % (Auto) 81.4 H, Lymph % (Auto) 9.4 L, [place] % (Auto) 6.6, Eos % (Auto) 1.7, Baso % (Auto) 0.2, Absolute Neuts (auto) 13.3 H, Absolute Lymphs (auto) 1.54, Nucleated RBC % 0, Differential Comment SCANNED, Anisocytosis 2+, Sodium Cancelled, Potassium Cancelled, Chloride Cancelled, Carbon Dioxide Cancelled, Anion Gap Cancelled, BUN Cancelled, Creatinine Cancelled, Estim Creat Clear Calc Cancelled, Est GFR (MDRD) Af Amer Cancelled, Est GFR (MDRD) Non-Af Cancelled, BUN/Creatinine Ratio Cancelled, Glucose Cancelled, Calcium Cancelled 01/04/23 05:40: Sodium 144, Potassium 4.5, Chloride 110 H, Carbon Dioxide 32.0, Anion Gap 2 L, BUN 16, Creatinine 0.89, Estim Creat Clear Calc 37.42, Est GFR (MDRD) Af Amer 79, Est GFR (MDRD) Non-Af 65, BUN/Creatinine Ratio 17.9, Glucose 167 H, Calcium 8.5 Micro: Microbiology 01/02/23 16:09 Blood Culture (Wb) - Anticubital Right Blood Culture - Preliminary 01/02/23 12:35 Urine Catheter - Catheter 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 Minimal output from her NG and her drain. Hemoglobin is stable after unit of blood. Continue to monitor with antibiotics and NG. I added a PPI. Continue to hold blood thinners. Likely remove NG and start tube feeds tomorrow. Xavier Valenzuela MD Pager: [facility] [address] [place] [address], [address] [place] [phone] Office:
[2023-01-04] MEDS: Pantoprazole Sodium 40 MG in 0.9% Normal Saline (100mL MB+) 100 ML 330 MG IV (08:07)
[2023-01-04] MEDS: Cefepime HCl 1 GM in 0.9% Normal Saline (50mL MB+) 50 ML IV ×2 (08:31→20:42)
--- NOTE | 2023-01-04 10:32 | PN_ITS ---
Subjective Subjective Patient seen and examined. She had no active complaints and had an uneventful night. Review of systems is otherwise negative. Objective Data Objective Data Vital Signs: Vital Signs Temp Pulse Resp BP Pulse Ox O2 Del Method O2 Flow Rate 97.3 F L 70 13 163/104 H 97 Nasal Cannula 2 01/04/23 09:00 01/04/23 10:00 01/04/23 10:00 01/04/23 10:00 01/04/23 10:00 01/04/23 10:00 01/04/23 09:00 Oxygen Flow Rate (L/min) 2 Oxygen Delivery Method Nasal Cannula Weight: 197 lb 12.074 oz Body Mass Index (BMI) 38.6 Intake & Output: Intake and Output for Last 24 Hours 01/02/23 01/03/23 01/04/23 23:59 23:59 23:59 Intake Total 100 / 100 907.75 / 907.75 160 / 160 Output Total 1375 / 1375 230 / 230 Balance 100 / -250 -467.25 / -467.25 -70 / -70 Lab / Micro Data 01/04/23 05:15 01/04/23 05:40 Labs: Laboratory Results - last 24 hr 01/03/23 07:10: Differential Comment SCANNED, Blood Type A POSITIVE, Antibody Screen NEGATIVE, Crossmatch See Detail 01/03/23 13:34: Troponin I High Sens 35 01/03/23 14:58: POC Glucose 150 H 01/03/23 15:30: Hgb 7.4 L, Hct 28.3 L, Troponin I High Sens 33 01/03/23 18:47: POC Glucose 147 H 01/03/23 18:55: Troponin I High Sens 33 01/03/23 21:15: Hgb 8.2 L, Hct 29.9 L 01/03/23 21:19: POC Glucose 126 H 01/04/23 02:11: POC Glucose 160 H 01/04/23 05:15: WBC 16.3 H, RBC 3.64 L, Hgb 8.3 L, Hct 29.8 L, MCV 81.9, MCH 22.8 L, MCHC 27.9 L D, RDW Std Deviation 62.4 H, RDW Coeff of Carissa 21.1 H, Plt Count 288, MPV 10.6, Immature Gran % (Auto) 0.700, Neut % (Auto) 81.4 H, Lymph % (Auto) 9.4 L, [place] % (Auto) 6.6, Eos % (Auto) 1.7, Baso % (Auto) 0.2, Absolute Neuts (auto) 13.3 H, Absolute Lymphs (auto) 1.54, Nucleated RBC % 0, Differential Comment SCANNED, Anisocytosis 2+, Sodium Cancelled, Potassium Cancelled, Chloride Cancelled, Carbon Dioxide Cancelled, Anion Gap Cancelled, BUN Cancelled, Creatinine Cancelled, Estim Creat Clear Calc Cancelled, Est GFR (MDRD) Af Amer Cancelled, Est GFR (MDRD) Non-Af Cancelled, BUN/Creatinine Ratio Cancelled, Glucose Cancelled, Calcium Cancelled 01/04/23 05:40: Sodium 144, Potassium 4.5, Chloride 110 H, Carbon Dioxide 32.0, Anion Gap 2 L, BUN 16, Creatinine 0.89, Estim Creat Clear Calc 37.42, Est GFR (MDRD) Af Amer 79, Est GFR (MDRD) Non-Af 65, BUN/Creatinine Ratio 17.9, Glucose 167 H, Calcium 8.5 Micro: Microbiology 01/02/23 12:35 Urine Catheter - Catheter Urine Culture - Preliminary Citrobacter freundii Gram negative james 01/02/23 16:09 Blood Culture (Wb) - Anticubital Right Blood Culture - P reliminary Physical Exam Const alert, oriented x3 and no apparent distress General Appearance: cooperative and comfortable HEENT normocephalic, head/scalp atraumatic, hearing grossly normal bilaterally, nasal mucous membranes and turbinates normal, moist oral mucous membranes and oroph arynx normal Eyes PERRL, EOMs intact bilaterally and conjunctivae normal Neck full ROM, no lymphadenopathy and supple Lymph Lymphatic: no lymphadenopathy noted Chest inspection of chest normal Resp normal respiratory effort, normal air movement, no use of accessory muscles and clear to auscultation bilaterally Resp Narrative: mildly diminished breath sounds bibasally, no wheezes or crackles. On 2L of oxygen by nasal canula Cardio regular rate, regular rhythm, S1 normal heart sound, S2 normal heart sound, no murmurs and peripheral pulses 2+ throughout GI GI Narrative: abdominal binder in place Back/Spine normal ROM Extremity normal to inspection, normal capillary refill and no pedal edema Extremity Narrative: LUE edema is improving. General Extremity: no tenderness to palpation of joints or extremities Skin no rashes or lesions noted General Skin Exam: no breakdown Neuro CN's II-XII intact bilaterally, no focal motor deficits and no sensory deficits noted Motor Exam: general weakness Psych thought process normal, cooperative and affect normal Appearance: appropriate Assessment & Plan Assessment/Plan (1) Perforated stomach: (2) Sepsis: (3) Urinary tract infection: (4) Malfunction of gastrostomy tube: PLAN: Plan #Sepsis * was thought to be due to recurrent UTI * wbc is trending down; was 22.4 on admission and now down to 16.3. * however, patient started bleeding from her PEG tube and CT scan showed evidence of pneumoperitoneum, with PEG tube thought to be in spleen. * PEG tube had been noted to be dislodged and she was brought to the ED, where PEG tube was replaced. * Taken emergently for surgery on admission and had exploratory laparoscopy with partial gastric resection and placement of G-tube. * on IV cefepime. * Blood cultures ordered and pending. Breathing treatments bronchodilators. * #Malfunctioning PEG tube: As above #Acute encephalopathy: * Improved. Patient able to answer questions now. * CT of the brain was negative for any acute intracranial pathology. Does have baseline dementia and lives in a [facility]. Will monitor. #Severe oropharyngeal dysphagia: * PEG tube in place. To be n.p.o. over the next 48 hours as stomach had to be repaired during the exploratory laparoscopy. * Speech therapy on board. * Usually on tube feeding, but per general surgery, to keep NPO for now. #Chest pain * reportedly had chest pain at her SNF. * during surgery today, noted to have some ST changes on monitor * EKG done showed some ST changes in lateral leads. * will cycle troponins. * #Hypokalemia: resolved. K is 4.5 today. #History of CAD; s/p CABG and stents. #HFpEF: not in exacerbation. #Hypertension: On amlodipine and Lasix as well as hydralazine. #Hyperlipidemia: On amlodipine and hydralazine. #Paroxysmal afib: on amiodarone and eliquis. #Type 2 diabetes mellitus: not on diabetic meds. ISS. Accuchecks ACHS. On gabapentin. DVT prophylaxis: already on eliquis. Charges/Coding Visit Charges Inpatient E&M: 46541 Subs Hosp L2
[2023-01-04 11:15] LABS: Bedside Glucose 157 mg/dL (74-106)
--- NOTE | 2023-01-04 13:57 | CHAPLAIN ---
Type of Pastoral Visit ___ Initial Visit ___ Follow-up Visit ___ On-call Visit ___ General Patient Visit ___ Spiritual Assessment ___ Family Conference ___ Bereavement ___ Rapid Response ___ Code Blue ___ Other (describe below) Pastoral Care Referral From ___ Patient ___ Family ___ Nurse ___ Physician ___ Pluck Separator ___ Electrician Apprentice ___ Other (describe below) Sacrament/Intervention ___ Active listening ___ Anointing ___ Orthodox ___ Bereavement ___ Communion ___ Aminah exploration ___ ___ Life review ___ Prayer ___ Reconciliation ___ Sacrament of Sick ___ Supportive presence ___ Wedding ___ Other (describe below) Pastoral Comments attempted to make visit; pt was medicated and sleeping at this time; RN explains that pt may or may not be able to have conversation due to her condition
[2023-01-04 14:34] LABS: Bedside Glucose 137 mg/dL (74-106)
--- NOTE | 2023-01-04 14:39 | CASEMGMT ---
JAGDEEP called patient's son Farhat and confirmed the plan is for patient to return to [facility] when medically ready. Mariaa Mckinney AUTO SERVICE DISPATCHER PRAVIN
[2023-01-04 16:43] LABS: Bedside Glucose 140 mg/dL (74-106)
[2023-01-04] MEDS: 0.9% Normal Saline (250mL Bag) 250 ML 15 ML IV (16:56)
[2023-01-04 17:15] LABS: Bedside Glucose 145 mg/dL (74-106)
[2023-01-04] MEDS: Ondansetron 4 MG/2 ML Vial IV (17:56)
[2023-01-04 21:02] LABS: Bedside Glucose 147 mg/dL (74-106)
[2023-01-05] VITALS (8 sets, daily range): BP systolic 142–174; BP diastolic 54–72; PULSE 77–85; RESP 14–23; TEMP 36.2–37; O2SAT 92–97; BMI 38.0
[2023-01-05 01:09] LABS: Bedside Glucose 148 mg/dL (74-106)
[2023-01-05] MEDS: fentaNYL 100 MCG/2 ML Ampul IV (05:10)
[2023-01-05 05:13] LABS: Absolute Lymphocyte Count 1.42 X10^3/uL (0.83-4.51); Basophil# 0.04 X10^3/uL; Basophil% 0.3 % (0-1); Eosinophil# 0.31 X10^3/uL; Eosinophils% 2.1 % (0-5); Hematocrit 31.4 % (37-47); Hemoglobin 8.5 g/dL (12.0-15.0); Lymphocyte # 1.42 X10^3/ul (0.83-4.51); Lymphocyte % 9.7 % (19-41); Mean Corp Hgb Conc 27.1 g/dL (32-36); Mean Corpuscular Hgb 22.7 pg (27.0-32.0); Monocyte# 0.83 X10^3/uL; Monocyte% 5.6 % (0-10); NRBC Flagged by Analyzer 0 % (0-5); Neutrophil # 11.98 X10^3/uL (2.7-7.7); Neutrophil % 81.4 % (47-70); POSITIVE MORPHOLOGY YES; Platelet Count 269 K/mm3 (150-450); RBC Distribution Width CV 21.4 % (11.6-14.6); RBC Distribution Width SD 65.5 fl (35.1-43.9); Red Blood Count 3.74 M/mm3 (4.2-5.4); White Blood Count 14.7 K/mm3 (4.4-11.0)
[2023-01-05 05:16] LABS: Differential Indicated SCAN CRITERIA MET
[2023-01-05 05:23] LABS: Bedside Glucose 146 mg/dL (74-106)
[2023-01-05 05:33] LABS: Anion Gap 5 (5-15); BUN 13 mg/dL (7-18); BUN/Creat Ratio 19.3 RATIO (10-20); Calcium,Total 8.7 mg/dL (8.5-10.1); Chloride 111 mmol/L (98-107); Creatinine, Serum 0.67 mg/dL (0.55-1.02); EST Glomerular Filtration Rate 90 mL/min (>60); Est Glom Filt Rate - Afr Amer 109 mL/min (>60); Glucose 157 mg/dL (74-106); Potassium 3.7 mmol/L (3.5-5.1); Sodium Level 148 mmol/L (136-145)
[2023-01-05 06:08] LABS: Anisocytosis 2+; Ovalocyte 1+
[2023-01-05] MEDS: Dextrose 5%-Water (1000mL Bag) 1,000 ML 75 ML IV (07:53)
[2023-01-05] MEDS: Pantoprazole Sodium 40 MG in 0.9% Normal Saline (100mL MB+) 100 ML 330 MG IV (07:57)
--- NOTE | 2023-01-05 08:33 | PCM.PN.SRG ---
Subjective Subjective The patient still seems confused this morning. She had an uneventful night. Objective Data Objective Data Vital Signs: Vital Signs Temp Pulse Resp BP Pulse Ox O2 Del Method O2 Flow Rate 98.6 F 85 20 H 150/54 H 95 Nasal Cannula 2 01/05/23 02:00 01/05/23 02:00 01/05/23 02:00 01/05/23 02:00 01/05/23 02:00 01/05/23 02:00 01/05/23 02:00 Oxygen Flow Rate (L/min) 2 Oxygen Delivery Method Nasal Cannula Weight: 195 lb 1.745 oz Body Mass Index (BMI) 38.0 Intake & Output: Intake and Output for Last 24 Hours 01/03/23 01/04/23 01/05/23 23:59 23:59 23:59 Intake Total 907.75 / 907.75 789.5 / 789.5 Output Total 1375 / 1375 1140 / 1140 440 / 440 Balance -467.25 / -467.25 -350.5 / -350.5 -440 / -440 Lab / Micro Data 01/05/23 05:00 01/05/23 05:00 Labs: Laboratory Results - last 24 hr 01/04/23 05:15: POC Glucose 145 H 01/04/23 10:57: POC Glucose 157 H 01/04/23 14:08: POC Glucose 137 H 01/04/23 16:25: POC Glucose 140 H 01/04/23 20:40: POC Glucose 147 H 01/05/23 00:52: POC Glucose 148 H 01/05/23 05:00: WBC 14.7 H, RBC 3.74 L, Hgb 8.5 L, Hct 31.4 L, MCV 84.0, MCH 22.7 L, MCHC 27.1 L, RDW Std Deviation 65.5 H, RDW Coeff of Carissa 21.4 H, Plt Count 269, MPV 10.0, Immature Gran % (Auto) 0.900, Neut % (Auto) 81.4 H, Lymph % (Auto) 9.7 L, [place] % (Auto) 5.6, Eos % (Auto) 2.1, Baso % (Auto) 0.3, Absolute Neuts (auto) 12.0 H, Absolute Lymphs (auto) 1.42, Nucleated RBC % 0, Anisocytosis 2+, Ovalocytes 1+, Sodium 148 H, Potassium 3.7, Chloride 111 H, Carbon Dioxide 32.0, Anion Gap 5, BUN 13, Creatinine 0.67, Estim Creat Clear Calc 33.30, Est GFR (MDRD) Af Amer 109, Est GFR (MDRD) Non-Af 90, BUN/Creatinine Ratio 19.3, Glucose 157 H, Calcium 8.7 01/05/23 05:04: POC Glucose 146 H Micro: Microbiology 01/02/23 16:09 Blood Culture (Wb) - Anticubital Right Blood Culture - Final Streptococcus alactolyticus 01/02/23 12:35 Urine Catheter - Catheter Urine Culture - Final Citrobacter freundii Proteus mirabilis 01/02/23 14:45 Blood Culture (Wb) - Arm Left Blood Culture - Preliminary No growth in 48 hours. Physical Exam Resp normal respiratory effort GI soft to palpation Palpation: tender Assessment & Plan Assessment/Plan (1) Perforated stomach: PLAN: The patient seems to be stable from yesterday. She had minimal output from her drain in her NG. I will remove the NG today and she is okay to start tube feeds from my standpoint. I will leave the drain in for another day or 2 while she is tolerating tube feeds. She will get a speech evaluation today. Hemoglobin was stable. I will start subcutaneous heparin today. As long as she tolerates that and her hemoglobin is stable tomorrow Dr. Raygoza will more than likely resume her Eliquis. Xavier Valenzuela MD Pager: [facility] [address] [place] [address], [address] [place] [phone] Office:
--- NOTE | 2023-01-05 09:19 | CASEMGMT ---
Social Work SW spoke w/RN, it is not likely pt would be discharged back to SNF this weekend. SW did send updates to [facility] however, and inquired if a precert would be needed for pt to return. JAGDEEP will continue to follow. PERCY Courtney
[2023-01-05] MEDS: Cefepime HCl 1 GM in 0.9% Normal Saline (50mL MB+) 50 ML IV ×2 (09:31→21:03)
[2023-01-05] MEDS: Insulin Lispro 100 UNIT/ML INSULN.PEN SC ×4 (09:41→21:11)
[2023-01-05 10:01] LABS: Bedside Glucose 155 mg/dL (74-106)
--- NOTE | 2023-01-05 10:11 | CASEMGMT ---
Social Work Green sheet on chart in event pt can return to [facility] at discharge. Precert is not needed for pt to return. PERCY Courtney
--- NOTE | 2023-01-05 10:24 | PN_ITS ---
Subjective Subjective Patient seen and examined. She had no complaints this morning and had an uneventful night. Review of systems is otherwise negative. NG tube removed and per surgery, she can be commenced on tube feeds. She has remained hemodynamically stable. Objective Data Objective Data Vital Signs: Vital Signs Temp Pulse Resp BP Pulse Ox O2 Del Method O2 Flow Rate 98.6 F 85 20 H 150/54 H 95 Nasal Cannula 2 01/05/23 02:00 01/05/23 02:00 01/05/23 02:00 01/05/23 02:00 01/05/23 02:00 01/05/23 02:00 01/05/23 02:00 Oxygen Flow Rate (L/min) 2 Oxygen Delivery Method Nasal Cannula Weight: 195 lb 1.745 oz Body Mass Index (BMI) 38.0 Intake & Output: Intake and Output for Last 24 Hours 01/03/23 01/04/23 01/05/23 23:59 23:59 23:59 Intake Total 907.75 / 907.75 789.5 / 789.5 110 / 110 Output Total 1375 / 1375 1140 / 1140 440 / 440 Balance -467.25 / -467.25 -350.5 / -350.5 -330 / -330 Lab / Micro Data 01/05/23 05:00 01/05/23 05:00 Labs: Laboratory Results - last 24 hr 01/04/23 05:15: POC Glucose 145 H 01/04/23 10:57: POC Glucose 157 H 01/04/23 14:08: POC Glucose 137 H 01/04/23 16:25: POC Glucose 140 H 01/04/23 20:40: POC Glucose 147 H 01/05/23 00:52: POC Glucose 148 H 01/05/23 05:00: WBC 14.7 H, RBC 3.74 L, Hgb 8.5 L, Hct 31.4 L, MCV 84.0, MCH 22 .7 L, MCHC 27.1 L, RDW Std Deviation 65.5 H, RDW Coeff of Carissa 21.4 H, Plt Count 269, MPV 10.0, Immature Gran % (Auto) 0.900, Neut % (Auto) 81.4 H, Lymph % (Auto) 9.7 L, [place] % (Auto) 5.6, Eos % (Auto) 2.1, Baso % (Auto) 0.3, Absolute Neuts (auto) 12.0 H, Absolute Lymphs (auto) 1.42, Nucleated RBC % 0, Anisocytosis 2+, Ovalocytes 1+, Sodium 148 H, Potassium 3.7, Chloride 111 H, Carbon Dioxide 32.0, Anion Gap 5, BUN 13, Creatinine 0.67, Estim Creat Clear Calc 33.30, Est GFR (MDRD) Af Amer 109, Est GFR (MDRD) Non-Af 90, BUN/Creatinine Ratio 19.3, Glucose 157 H, Calcium 8.7 01/05/23 05:04: POC Glucose 146 H 01/05/23 09:40: POC Glucose 155 H Micro: Microbiology 01/02/23 16:09 Blood Culture (Wb) - Anticubital Right Blood Culture - Final Streptococcus alactolyticus 01/02/23 12:35 Urine Catheter - Catheter Urine Culture - Final Citrobacter freundii Proteus mirabilis 01/02/23 14:45 Blood Culture (Wb) - Arm Left Blood Culture - Preliminary No growth in 48 hours. Physical Exam Const alert, oriented x3 and no apparent distress Constitutional Narrative: Elderly female, obese, alert but not answering questions appropriately, laying comfortably in bed, no acute distress. General Appearance: cooperative and comfortable HEENT normocephalic, head/scalp atraumatic, hearing grossly normal bilaterally, nasal mucous membranes and turbinates normal, moist oral mucous membranes and oropharynx normal Eyes PERRL, EOMs intact bilaterally and conjunctivae normal Neck full ROM, no lymphadenopathy and supple Lymph Lymphatic: no lymphadenopathy noted Chest inspection of chest normal Resp normal respiratory effort, normal air movement, no use of accessory muscles and clear to auscultation bilaterally Resp Narrative: mildly diminished breath sounds bibasally, no wheezes or crackles. On 2L of oxygen by nasal canula Cardio regular rate, regular rhythm, S1 normal heart sound, S2 normal heart sound, no murmurs and peripheral pulses 2+ throughout GI GI Narrative: abdominal binder in place, PEG Tube in situ Back/Spine normal ROM Extremity normal to inspection, normal capillary refill and no pedal edema Extremity Narrative: LUE edema has improved markedly. General Extremity: no tenderness to palpation of joints or extremities Skin no rashes or lesions noted General Skin Exam: no breakdown Neuro CN's II-XII intact bilaterally, no focal motor deficits and no sensory deficits noted Motor Exam: general weakness Psych thought process normal, cooperative and affect normal Appearance: appropriate Assessment & Plan Assessment/Plan (1) Perforated stomach: (2) Sepsis: (3) Urinary tract infection: (4) Malfunction of gastrostomy tube: PLAN: Plan #Sepsis * was thought to be due to recurrent UTI * wbc down to 14.7 today * however, patient started bleeding from her PEG tube and CT scan showed evidence of pneumoperitoneum, with PEG tube thought to be in spleen. * PEG tube had been noted to be dislodged and she was brought to the ED, where PEG tube was replaced. * s/p emergency exploratory laparoscopy with partial gastric resection and placement of G-tube. * on IV cefepime. * blood cultures growing Strep alactolyticus in 1/2 samples; urine culures growing Citrobacter freundii and Proteus mirabilis. These are all sensitive to cefepime * Blood cultures ordered and pending. Breathing treatments bronchodilators. * #Malfunctioning PEG tube: As above #Acute encephalopathy: * Improved. Patient able to answer questions now. * CT of the brain was negative for any acute intracranial pathology. Does have baseline dementia and lives in a correction. Will monitor. #Severe oropharyngeal dysphagia: * PEG tube in place. * has been NPO since surgery. NG tube removed * per general surgery, tube feeds can be resumed today * Dietitian on board to give recommendations about tube feeds. * Usually on tube feeding, but per general surgery, to keep NPO for now. #Chest pain * reportedly had chest pain at her SNF. * during surgery today, noted to have some ST changes on monitor * EKG done showed some ST changes in lateral leads. * will cycle troponins. * #Hypokalemia: resolved. K is 4.5 today. #History of CAD; s/p CABG and stents. #HFpEF: not in exacerbation. #Hypertension: On amlodipine and Lasix as well as hydralazine. #Hyperlipidemia: On amlodipine and hydralazine. #Paroxysmal afib: on amiodarone and eliquis. #Type 2 diabetes mellitus: not on diabetic meds. ISS. Accuchecks ACHS. On gabapentin. DVT prophylaxis: already on eliquis. Charges/Coding Visit Charges Inpatient E&M: 10827 Subs Hosp L2
--- NOTE | 2023-01-05 12:35 | NURSING ---
report called to [facility] for transfer to room 114
--- NOTE | 2023-01-05 14:29 | NURSING ---
transferred per bed with belongings to room 114, family present
--- NOTE | 2023-01-05 14:32 | CHAPLAIN ---
Type of Pastoral Visit _x__ Initial Visit ___ Follow-up Visit ___ On-call Visit ___ General Patient Visit ___ Spiritual Assessment ___ Family Conference ___ Bereavement ___ Rapid Response ___ Code Blue ___ Other (describe below) Pastoral Care Referral From _x__ Patient ___ Family ___ Nurse ___ Physician ___ Drain Cleaner ___ Camp Housekeeper ___ Other (describe below) Sacrament/Intervention _x__ Active listening ___ Anointing ___ Spiritism ___ Bereavement ___ Communion ___ Aminah exploration ___ ___ Life review _x__ Prayer ___ Reconciliation ___ Sacrament of Sick _x__ Supportive presence ___ Wedding ___ Other (describe below) Pastoral Comments patient has been seen before by this payroll administrator in previous admissions; pt is from an [facility]; pt is able to converse but at times stops when trying to say something if she cannot remember what it is to say; pt sees Any Dugan on the TV and says Ho, Simon, Ho,; sat with patient and just made casual conversation to occupy her time; pt said yes when asked about sitting with her and saying a prayer; offered calm and comforting words
[2023-01-05] MEDS: Heparin Injection (Vial) 5,000 UNIT/ML VIAL 5000 UNIT SC ×2 (15:28→21:04)
[2023-01-05] MEDS: hydrALAZINE 50 MG Tablet PO ×2 (15:28→21:04)
[2023-01-05 16:01] LABS: Bedside Glucose 163 mg/dL (74-106)
[2023-01-05 19:20] LABS: Bedside Glucose 192 mg/dL (74-106)
[2023-01-05] MEDS: carBAMazepine 200 MG/10 ML UDC PO (21:04)
[2023-01-06] VITALS (10 sets, daily range): BP systolic 128–160; BP diastolic 56–91; PULSE 73–81; RESP 17–24; TEMP 36.6–37.1; O2SAT 93–100; BMI 37.6
[2023-01-06 00:08] LABS: Bedside Glucose 210 mg/dL (74-106)
[2023-01-06] MEDS: 0.9% Saline Lock 10 ML Syringe IV (00:21)
[2023-01-06] MEDS: Furosemide 40 MG/4 ML Vial IV (00:21)
[2023-01-06] MEDS: Insulin Lispro 100 UNIT/ML INSULN.PEN SC ×5 (02:03→21:04)
[2023-01-06 02:27] LABS: Bedside Glucose 185 mg/dL (74-106)
[2023-01-06 06:29] LABS: Absolute Lymphocyte Count 1.68 X10^3/uL (0.83-4.51); Absolute Neutrophil Count 9.1 X10^3/uL (2.0-7.7); Basophil# 0.04 X10^3/uL; Basophil% 0.3 % (0-1); Eosinophil# 0.29 X10^3/uL; Eosinophils% 2.4 % (0-5); Hematocrit 32.2 % (37-47); Hemoglobin 8.8 g/dL (12.0-15.0); Lymphocyte # 1.68 X10^3/ul (0.83-4.51); Lymphocyte % 13.9 % (19-41); Mean Corp Hgb Conc 27.3 g/dL (32-36); Mean Corpuscular Hgb 22.6 pg (27.0-32.0); Mean Corpuscular Volume 82.6 fL (81-99); Mean Platelet Vol. 10.1 fl (6.2-12.0); Monocyte# 0.92 X10^3/uL; Monocyte% 7.6 % (0-10); NRBC Flagged by Analyzer 0 % (0-5); Neutrophil # 9.09 X10^3/uL (2.7-7.7); POSITIVE MORPHOLOGY YES; Platelet Count 258 K/mm3 (150-450); RBC Distribution Width CV 21.9 % (11.6-14.6); RBC Distribution Width SD 64.4 fl (35.1-43.9); White Blood Count 12.1 K/mm3 (4.4-11.0)
[2023-01-06] MEDS: hydrALAZINE 50 MG Tablet PO ×2 (06:36→14:12)
[2023-01-06] MEDS: Heparin Injection (Vial) 5,000 UNIT/ML VIAL 5000 UNIT SC (06:37)
[2023-01-06 06:55] LABS: Differential Indicated SCAN CRITERIA MET
[2023-01-06 07:08] LABS: Bedside Glucose 150 mg/dL (74-106)
[2023-01-06] MEDS: Amiodarone 200 MG Tablet 100 MG PO (08:28)
[2023-01-06 08:29] LABS: Anion Gap 5 (5-15); BUN 15 mg/dL (7-18); BUN/Creat Ratio 21.7 RATIO (10-20); Calcium,Total 8.6 mg/dL (8.5-10.1); Chloride 106 mmol/L (98-107); Creatinine, Serum 0.69 mg/dL (0.55-1.02); EST Glomerular Filtration Rate 87 mL/min (>60); Est Glom Filt Rate - Afr Amer 105 mL/min (>60); Glucose 172 mg/dL (74-106); Potassium 2.9 mmol/L (3.5-5.1); Sodium Level 144 mmol/L (136-145)
--- NOTE | 2023-01-06 08:50 | PCM.PN.SRG ---
Subjective Subjective Patient had some high residuals after only 2 bolus feeds yesterday. Patient denies abdominal pain. Patient's СЕРГЕЙ is serosanguineous hemoglobin stable at 8.8 from 8.5 Objective Data Objective Data Vital Signs: Vital Signs Temp Pulse Resp BP Pulse Ox O2 Del Method O2 Flow Rate 98.5 F 75 20 H 152/56 H 93 Nasal Cannula 1 01/06/23 08:33 01/06/23 08:33 01/06/23 08:33 01/06/23 08:33 01/06/23 08:33 01/06/23 08:33 01/06/23 08:33 Oxygen Flow Rate (L/min) 1 Oxygen Delivery Method Nasal Cannula Weight: 192 lb 14.472 oz Body Mass Index (BMI) 37.6 Intake & Output: Intake and Output for Last 24 Hours 01/04/23 01/05/23 01/06/23 23:59 23:59 23:59 Intake Total 789.5 / 789.5 1910 / 1910 50 / 50 Output Total 1140 / 1140 1290 / 1290 1000 / 1000 Balance -350.5 / -350.5 620 / 620 -950 / -950 Lab / Micro Data 01/06/23 05:56 01/06/23 05:56 Labs: Laboratory Results - last 24 hr 01/05/23 09:40: POC Glucose 155 H 01/05/23 15:25: POC Glucose 163 H 01/05/23 18:48: POC Glucose 192 H 01/05/23 21:10: POC Glucose 210 H 01/06/23 02:01: POC Glucose 185 H 01/06/23 05:56: WBC 12.1 H, RBC 3.90 L, Hgb 8.8 L, Hct 32.2 L, MCV 82.6, MCH 22.6 L, MCHC 27.3 L, RDW Std Deviation 64.4 H, RDW Coeff of Carissa 21.9 H, Plt Count 258, MPV 10.1, Immature Gran % (Auto) 0.800, Neut % (Auto) 75.0 H, Lymph % (Auto) 13.9 L, [place] % (Auto) 7.6, Eos % (Auto) 2.4, Baso % (Auto) 0.3, Absolute Neuts (auto) 9.1 H, Absolute Lymphs (auto) 1.68, Nucleated RBC % 0, Sodium 144, Potassium 2.9 L, Chloride 106, Carbon Dioxide 33.0 H, Anion Gap 5, BUN 15, Creatinine 0.69, Estim Creat Clear Calc 33.30, Est GFR (MDRD) Af Amer 105, Est GFR (MDRD) Non-Af 87, BUN/Creatinine Ratio 21.7 H, Glucose 172 H, Calcium 8.6 01/06/23 06:32: POC Glucose 150 H Micro: Microbiology 01/02/23 16:09 Blood Culture (Wb) - Anticubital Right Blood Culture - Final Streptococcus alactolyticus 01/02/23 12:35 Urine Catheter - Catheter Urine Culture - Final Citrobacter freundii Proteus mirabilis 01/02/23 14:45 Blood Culture (Wb) - Arm Left Blood Culture - Preliminary No growth in 48 hours. Physical Exam Resp normal respiratory effort GI soft to palpation GI Narrative: PEG in place, СЕРГЕЙ serosanguineous Palpation: tender Assessment & Plan Assessment/Plan (1) Perforated stomach: PLAN: Patient will get 2 doses of her tube feeds as she has high residuals. They will restart tube feeds this morning. Patient has not had a bowel movement since 02 January will plan to give an enema. СЕРГЕЙ serosanguineous?СЕРГЕЙ will stay in for 2 days after is tolerating tube feeds to continue to monitor Hemoglobin is stable 8.8 from 8.5 on the subcu heparin. Okay to restart patient's home Lovenox. Patient's white blood cell count is 12 from 14 of recommend continuing IV antibiotics. Xavier Valenzuela MD Pager: [facility] [address] [place] [address], [address] [place] [address] Office:
[2023-01-06 09:56] LABS: Anisocytosis 2+; Differential Comment SCANNED; Hypochromasia 1+; Macrocytosis 1+; Microcytosis 1+
[2023-01-06] MEDS: Pantoprazole Sodium 40 MG in 0.9% Normal Saline (100mL MB+) 100 ML 330 MG IV (10:32)
[2023-01-06] MEDS: carBAMazepine 200 MG/10 ML UDC PO (10:38)
[2023-01-06] MEDS: amLODIPine 2.5 MG Tablet PO (10:38)
[2023-01-06] MEDS: Acetaminophen 650 MG/20 ML UDC GT ×2 (10:42→20:52)
[2023-01-06] MEDS: Cefepime HCl 1 GM in 0.9% Normal Saline (50mL MB+) 50 ML IV ×2 (11:07→20:49)
--- NOTE | 2023-01-06 11:07 | PN_ITS ---
Subjective Subjective Patient seen and examined. She had no complaints. She had increased residuals from the tube feeds, so tube feeds held. WBC is 12 today, and continues to trend downwards. Objective Data Objective Data Vital Signs: Vital Signs Temp Pulse Resp BP Pulse Ox O2 Del Method O2 Flow Rate 98.5 F 75 20 H 152/56 H 93 Nasal Cannula 1 01/06/23 08:33 01/06/23 08:33 01/06/23 08:33 01/06/23 08:33 01/06/23 08:33 01/06/23 08:40 01/06/23 08:40 Oxygen Flow Rate (L/min) 1 Oxygen Delivery Method Nasal Cannula Weight: 192 lb 14.472 oz Body Mass Index (BMI) 37.6 Intake & Output: Intake and Output for Last 24 Hours 01/04/23 01/05/23 01/06/23 23:59 23:59 23:59 Intake Total 789.5 / 789.5 1910 / 1910 100 / 100 Output Total 1140 / 1140 1290 / 1290 1000 / 1000 Balance -350.5 / -350.5 620 / 620 -900 / -900 Lab / Micro Data 01/06/23 05:56 01/06/23 05:56 Labs: Laboratory Results - last 24 hr 01/05/23 15:25: POC Glucose 163 H 01/05/23 18:48: POC Glucose 192 H 01/05/23 21:10: POC Glucose 210 H 01/06/23 02:01: POC Glucose 185 H 01/06/23 05:56: WBC 12.1 H, RBC 3.90 L, Hgb 8.8 L, Hct 32.2 L, MCV 82.6, MCH 22.6 L, MCHC 27.3 L, RDW Std Deviation 64.4 H, RDW Coeff of Carissa 21.9 H, Plt Count 258, MPV 10.1, Immature Gran % (Auto) 0.800, Neut % (Auto) 75.0 H, Lymph % (Auto) 13.9 L, [place] % (Auto) 7.6, Eos % (Auto) 2.4, Baso % (Auto) 0.3, Absolute Neuts (auto) 9.1 H, Absolute Lymphs (auto) 1.68, Nucleated RBC % 0, Differential Comment SCANNED, Hypochromasia 1+, Anisocytosis 2+, Microcytosis 1+, Macrocyt osis 1+, Sodium 144, Potassium 2.9 L, Chloride 106, Carbon Dioxide 33.0 H, Anion Gap 5, BUN 15, Creatinine 0.69, Estim Creat Clear Calc 33.30, Est GFR (MDRD) Af Amer 105, Est GFR (MDRD) Non-Af 87, BUN/Creatinine Ratio 21.7 H, Glucose 172 H, Calcium 8.6 01/06/23 06:32: POC Glucose 150 H Micro: Microbiology 01/02/23 16:09 Blood Culture (Wb) - Anticubital Right Blood Culture - Final Streptococcus alactolyticus 01/02/23 12:35 Urine Catheter - Catheter Urine Culture - Final Citrobacter freundii Proteus mirabilis 01/02/23 14:45 Blood Culture (Wb) - Arm Left Blood Culture - Preliminary No growth in 48 hours. Physical Exam Const alert and no apparent distress General Appearance: cooperative and comfortable Orientation / Consciousness: confused HEENT normocephalic, head/scalp atraumatic, hearing grossly normal bilaterally, nasal mucous membranes and turbinates normal, moist oral mucous membranes and oropharynx normal Eyes PERRL, EOMs intact bilaterally and conjunctivae normal Neck full ROM, no lymphadenopathy and supple Lymph Lymphatic: no lymphadenopathy noted Chest inspection of chest normal Resp normal respiratory effort, normal air movement, no use of accessory muscles and clear to auscultation bilaterally Resp Narrative: mildly diminished breath sounds bibasally, no wheezes or crackles. On 1L of oxygen by nasal canula Cardio regular rate, regular rhythm, S1 normal heart sound, S2 normal heart sound, no murmurs and peripheral pulses 2+ throughout GI GI Narrative: abdominal binder in place, PEG Tube in situ Back/Spine normal ROM Extremity normal to inspection, normal capillary refill and no pedal edema General Extremity: no tenderness to palpation of joints or extremities Skin no rashes or lesions noted General Skin Exam: no breakdown Neuro CN's II-XII intact bilaterally, no focal motor deficits and no sensory deficits noted Motor Exam: general weakness Psych thought process normal, cooperative and affect normal Appearance: appropriate Assessment & Plan Assessment/Plan (1) Perforated stomach: (2) Sepsis: (3) Urinary tract infection: (4) Malfunction of gastrostomy tube: PLAN: Plan #Sepsis * was thought to be due to recurrent UTI * wbc down to 12 today and continues to trend donwareds. * however, patient started bleeding from her PEG tube and CT scan showed evidence of pneumoperitoneum, with PEG tube thought to be in spleen. * PEG tube had been noted to be dislodged and she was brought to the ED, where PEG tube was replaced. * s/p emergency exploratory laparoscopy with partial gastric resection and placement of G-tube. * on IV cefepime. * blood cultures growing Strep alactolyticus in 1/2 samples; urine culures growing Citrobacter freundii and Proteus mirabilis. These are all sensitive to cefepime * Breathing treatments bronchodilators. * #Malfunctioning PEG tube: As above #Acute encephalopathy: * Improved. Patient able to answer questions now. * CT of the brain was negative for any acute intracranial pathology. Does have baseline dementia and lives in a prison. Will monitor. #Severe oropharyngeal dysphagia: * PEG tube in place. * has been NPO since surgery. NG tube removed * per general surgery, tube feeds can be resumed today * Dietitian on board to give recommendations about tube feeds. * resumed on tube feeds, but not tolerating it very well and having increased residuals from it. #Chest pain * reportedly had chest pain at her SNF. * during surgery today, noted to have some ST changes on monitor * EKG done showed some ST changes in lateral leads. * will cycle troponins. * #Hypokalemia: resolved. #History of CAD; s/p CABG and stents. #HFpEF: not in exacerbation. #Hypertension: On amlodipine and Lasix as well as hydralazine. #Hyperlipidemia: On amlodipine and hydralazine. #Paroxysmal afib: on amiodarone and eliquis. #Type 2 diabetes mellitus: not on diabetic meds. ISS. Accuchecks ACHS. On gabapentin. DVT prophylaxis: already on eliquis. Charges/Coding Visit Charges Inpatient E&M: 59599 Subs Hosp L2
[2023-01-06 11:33] LABS: Bedside Glucose 150 mg/dL (74-106)
--- NOTE | 2023-01-06 11:44 | NURSING ---
update given to binh Jewell.
--- NOTE | 2023-01-06 15:07 | NURSING ---
1420-pt with [address] Gillespie notified. Ordered to discard residual and hold 1400 tube feed.
[2023-01-06 15:21] LABS: Bedside Glucose 165 mg/dL (74-106)
--- NOTE | 2023-01-06 16:18 | NURSING ---
family in and asking about patient's medications, specifically neurontin. Dr. Madsen notified and ordered to restart home dose of neurotin.
[2023-01-06] MEDS: Gabapentin 600 MG Tablet GT (18:10)
[2023-01-06] MEDS: Jevity 1.5. 1,000 ML Bottle 250 ML GT ×2 (18:14→20:49)
[2023-01-06 18:40] LABS: Bedside Glucose 118 mg/dL (74-106)
[2023-01-06] MEDS: hydrALAZINE 50 MG Tablet GT (20:48)
[2023-01-06] MEDS: carBAMazepine 200 MG/10 ML UDC GT (20:48)
[2023-01-06] MEDS: APIXABAN 5 MG TABLET GT (20:51)
[2023-01-06 22:11] LABS: Bedside Glucose 206 mg/dL (74-106)
[2023-01-06] MEDS: Potassium Chloride Oral Soln 20 MEQ/15 ML UDC 40 MEQ PO (23:04)
[2023-01-07] VITALS (10 sets, daily range): BP systolic 137–171; BP diastolic 61–93; PULSE 69–87; RESP 18; TEMP 36.3–36.7; O2SAT 90–94; BMI 37.6
[2023-01-07] MEDS: Insulin Lispro 100 UNIT/ML INSULN.PEN SC ×6 (03:14→22:19)
[2023-01-07] MEDS: hydrALAZINE 50 MG Tablet GT ×3 (06:27→21:01)
[2023-01-07 06:50] LABS: Bedside Glucose 160 mg/dL (74-106)
[2023-01-07 07:00] LABS: Bedside Glucose 202 mg/dL (74-106)
[2023-01-07 07:17] LABS: Absolute Lymphocyte Count 1.75 X10^3/uL (0.83-4.51); Absolute Neutrophil Count 8.1 X10^3/uL (2.0-7.7); Basophil# 0.03 X10^3/uL; Basophil% 0.3 % (0-1); Eosinophil# 0.32 X10^3/uL; Eosinophils% 2.9 % (0-5); Hematocrit 33.5 % (37-47); Hemoglobin 9.2 g/dL (12.0-15.0); Lymphocyte # 1.75 X10^3/ul (0.83-4.51); Lymphocyte % 15.9 % (19-41); Mean Corp Hgb Conc 27.5 g/dL (32-36); Mean Corpuscular Hgb 22.8 pg (27.0-32.0); Mean Corpuscular Volume 83.1 fL (81-99); Mean Platelet Vol. 10.1 fl (6.2-12.0); Monocyte# 0.74 X10^3/uL; Monocyte% 6.7 % (0-10); NRBC Flagged by Analyzer 0 % (0-5); Neutrophil # 8.08 X10^3/uL (2.7-7.7); Neutrophil % 73.6 % (47-70); POSITIVE MORPHOLOGY YES; Platelet Count 277 K/mm3 (150-450); RBC Distribution Width CV 22.5 % (11.6-14.6); RBC Distribution Width SD 67.1 fl (35.1-43.9); Red Blood Count 4.03 M/mm3 (4.2-5.4)
[2023-01-07] MEDS: Amiodarone 200 MG Tablet 100 MG GT (07:52)
[2023-01-07] MEDS: Gabapentin 600 MG Tablet GT ×3 (07:55→17:43)
[2023-01-07] MEDS: Acetaminophen 650 MG/20 ML UDC GT ×2 (07:55→17:42)
[2023-01-07 08:02] LABS: Anion Gap 2 (5-15); BUN 16 mg/dL (7-18); BUN/Creat Ratio 22.1 RATIO (10-20); Chloride 108 mmol/L (98-107); Creatinine, Serum 0.72 mg/dL (0.55-1.02); EST Glomerular Filtration Rate 83 mL/min (>60); Est Glom Filt Rate - Afr Amer 100 mL/min (>60); Glucose 154 mg/dL (74-106); Magnesium 2.4 mg/dL (1.6-2.6); Potassium 3.5 mmol/L (3.5-5.1); Sodium Level 144 mmol/L (136-145)
[2023-01-07 08:29] LABS: Differential Indicated SCAN CRITERIA MET
--- NOTE | 2023-01-07 08:59 | PCM.PN.SRG ---
Subjective Subjective Patient is dates she has been feels horrible sounds like is mostly due to her being thirsty and hungry currently she is n.p.o. per speech. Patient did get tube feeds yesterday unable to tell in the chart if she had high residuals or not waiting to hear back from the nurse. СЕРГЕЙ serosanguineous Objective Data Objective Data Vital Signs: Vital Signs Temp Pulse Resp BP Pulse Ox O2 Del Method O2 Flow Rate 98.1 F 80 18 171/65 H 93 Room Air 1 01/07/23 07:45 01/07/23 07:45 01/07/23 07:45 01/07/23 07:45 01/07/23 07:45 01/07/23 07:45 01/06/23 19:56 Oxygen Flow Rate (L/min) 1 Oxygen Delivery Method Room Air Weight: 192 lb 10.944 oz Body Mass Index (BMI) 37.6 Intake & Output: Intake and Output for Last 24 Hours 01/05/23 01/06/23 01/07/23 23:59 23:59 23:59 Intake Total 1910 / 1910 690 / 690 Output Total 1290 / 1290 1890 / 1890 190 / 190 Balance 620 / 620 -1200 / -1200 -190 / -190 Lab / Micro Data 01/07/23 06:12 01/07/23 06:12 Labs: Laboratory Results - last 24 hr 01/06/23 05:56: Differential Comment SCANNED, Hypochromasia 1+, Anisocytosis 2+, Microcytosis 1+, Macrocytosis 1+ 01/06/23 10:29: POC Glucose 150 H 01/06/23 14:03: POC Glucose 165 H 01/06/23 18:08: POC Glucose 118 H 01/06/23 21:03: POC Glucose 206 H 01/07/23 03:12: POC Glucose 202 H 01/07/23 06:12: WBC 11.0, RBC 4.03 L, Hgb 9.2 L, Hct 33.5 L, MCV 83.1, MCH 22.8 L, MCHC 27.5 L, RDW Std Deviation 67.1 H, RDW Coeff of Carissa 22.5 H, Plt Count 277, MPV 10.1, Immature Gran % (Auto) 0.600, Neut % (Auto) 73.6 H, Lymph % (Auto) 15.9 L, [place] % (Auto) 6.7, Eos % (Auto) 2.9, Baso % (Auto) 0.3, Absolute Neuts (auto) 8.1 H, Absolute Lymphs (auto) 1.75, Nucleated RBC % 0, Sodium 144, Potassium 3.5, Chloride 108 H, Carbon Dioxide 34.0 H, Anion Gap 2 L, BUN 16, Creatinine 0.72, Estim Creat Clear Calc 33.30, Est GFR (MDRD) Af Amer 100, Est GFR (MDRD) Non-Af 83, BUN/Creatinine Ratio 22.1 H, Glucose 154 H, Calcium 9.0, Magnesium 2.4 01/07/23 06:22: POC Glucose 160 H Micro: Microbiology 01/02/23 16:09 Blood Culture (Wb) - Anticubital Right Blood Culture - Final Streptococcus alactolyticus 01/02/23 12:35 Urine Catheter - Catheter Urine Culture - Final Citrobacter freundii Proteus mirabilis 01/02/23 14:45 Blood Culture (Wb) - Arm Left Blood Culture - Preliminary No growth in 48 hours. Physical Exam Resp normal respiratory effort GI soft to palpation GI Narrative: PEG in place, СЕРГЕЙ serosanguineous Palpation: tender Assessment & Plan Assessment/Plan (1) Perforated stomach: PLAN: Still on tube feeds currently speech is reevaluating. Okay for diet from general surgery standpoint if okayed with speech. СЕРГЕЙ serosanguineous?СЕРГЕЙ will stay in for 2 days after is tolerating tube feeds/p.o. diet to continue to monitor Hemoglobin is stable 8.9?patient's Eliquis restarted. Patient's white blood cell count is 11 from 12 of recommend continuing IV antibiotics-likely stop tomorrow for blood count continues to be normal. Ava Raygoza M.D. Pager: [phone] [facility] [address] [place] [address], [facility], [address] [place] [address] Office: [phone]
--- NOTE | 2023-01-07 10:45 | PN_ITS ---
Subjective Subjective Patient seen and examined. She complained of having pain all over. She denied any fever, chills, palpitations, dizziness, nausea or vomiting or any other symptoms. REview of systems is otherwise negative. She received tube feeds yesterday. Objective Data Objective Data Vital Signs: Vital Signs Temp Pulse Resp BP Pulse Ox O2 Del Method O2 Flow Rate 98.1 F 80 18 171/65 H 93 Room Air 1 01/07/23 07:45 01/07/23 07:45 01/07/23 07:45 01/07/23 07:45 01/07/23 07:45 01/07/23 07:45 01/06/23 19:56 Oxygen Flow Rate (L/min) 1 Oxygen Delivery Method Room Air Weight: 192 lb 10.944 oz Body Mass Index (BMI) 37.6 Intake & Output: Intake and Output for Last 24 Hours 01/05/23 01/06/23 01/07/23 23:59 23:59 23:59 Intake Total 1910 / 1910 690 / 690 Output Total 1290 / 1290 1890 / 1890 190 / 190 Balance 620 / 620 -1200 / -1200 -190 / -190 Lab / Micro Data 01/07/23 06:12 01/07/23 06:12 Labs: Laboratory Results - last 24 hr 01/06/23 10:29: POC Glucose 150 H 01/06/23 14:03: POC Glucose 165 H 01/06/23 18:08: POC Glucose 118 H 01/06/23 21:03: POC Glucose 206 H 01/07/23 03:12: POC Glucose 202 H 01/07/23 06:12: WBC 11.0, RBC 4.03 L, Hgb 9.2 L, Hct 33.5 L, MCV 83.1, MCH 22.8 L, MCHC 27.5 L, RDW Std Deviation 67.1 H, RDW Coeff of Carissa 22.5 H, Plt Count 277, MPV 10.1, Immature Gran % (Auto) 0.600, Neut % (Auto) 73.6 H, Lymph % (Auto) 15.9 L, [place] % (Auto) 6.7, Eos % (Auto) 2.9, Baso % (Auto) 0.3, Absolute Neuts (auto) 8.1 H, Absolute Lymphs (auto) 1.75, Nucleated RBC % 0, Sodium 144, Potassium 3.5, Chloride 108 H, Carbon Dioxide 34.0 H, Anion Gap 2 L, BUN 16, Creatinine 0.72, Estim Creat Clear Calc 33.30, Est GFR (MDRD) Af Amer 100, Est GFR (MDRD) Non-Af 83, BUN/Creatinine Ratio 22.1 H, Glucose 154 H, Calcium 9.0, Magnesium 2.4 01/07/23 06:22: POC Glucose 160 H Micro: Microbiology 01/02/23 16:09 Blood Culture (Wb) - Anticubital Right Blood Culture - Final Streptococcus alactolyticus 01/02/23 12:35 Urine Catheter - Catheter Urine Culture - Final Citrobacter freundii Proteus mirabilis 01/02/23 14:45 Blood Culture (Wb) - Arm Left Blood Culture - Preliminary No growth in 48 hours. Physical Exam Const alert, oriented x3 and no apparent distress Constitutional Narrative: Elderly female, obese, alert but not answering questions appropriately, laying comfortably in bed, no acute distress. General Appearance: cooperative and comfortable Orientation / Consciousness: confused HEENT normocephalic, head/scalp atraumatic, hearing grossly normal bilaterally, nasal mucous membranes and turbinates normal, moist oral mucous membranes and oropharynx normal Eyes PERRL, EOMs intact bilaterally and conjunctivae normal Neck full ROM, no lymphadenopathy and supple Lymph Lymphatic: no lymphadenopathy noted Chest inspection of chest normal Resp normal respiratory effort, normal air movement, no use of accessory muscles and clear to auscultation bilaterally Resp Narrative: mildly diminished breath sounds bibasally, no wheezes or crackles. On room air. Cardio regular rate, regular rhythm, S1 normal heart sound, S2 normal heart sound, no murmurs and peripheral pulses 2+ throughout GI GI Narrative: abdominal binder in place, PEG Tube in situ, СЕРГЕЙ drain in situ Back/Spine normal ROM Extremity normal to inspection, normal capillary refill and no pedal edema Extremity Narrative: LUE edema has resolved. General Extremity: no tenderness to palpation of joints or extremities Skin no rashes or lesions noted General Skin Exam: no breakdown Neuro CN's II-XII intact bilaterally, no focal motor deficits and no sensory deficits noted Motor Exam: general weakness Psych thought process normal, cooperative and affect normal Appearance: appropriate Assessment & Plan Assessment/Plan (1) Perforated stomach: (2) Sepsis: (3) Urinary tract infection: (4) Malfunction of gastrostomy tube: PLAN: Plan #Sepsis * was thought to be due to recurrent UTI * wbc down to 11 today and continues to trend donwareds. * patient started bleeding from her PEG tube and CT scan showed evidence of pneumoperitoneum, with PEG tube thought to be in spleen. * PEG tube had been noted to be dislodged and she was brought to the ED, where PEG tube was replaced. * s/p emergency exploratory laparoscopy with partial gastric resection and placement of G-tube. * on IV cefepime. Continue IV cefepime for today * blood cultures growing Strep alactolyticus in 1/2 samples; urine cultures growing Citrobacter freundii and Proteus mirabilis. These are all sensitive to cefepime * Breathing treatments bronchodilators. * #Malfunctioning PEG tube: As above #Acute encephalopathy * improved markedly. Patient able to answer questions now. * CT of the brain was negative for any acute intracranial pathology. Does have baseline dementia and lives in a assisted. Will monitor. #Severe oropharyngeal dysphagia: * PEG tube in place. * per general surgery, tube feeds can be resumed. However she had increased residuals so tube feeds were held. Tube feeds resumed yesternight. * Dietitian on board to give recommendations about tube feeds. * #Chest pain * reportedly had chest pain at her SNF. * during surgery, noted to have some ST changes on monitor * EKG done showed some ST changes in lateral leads. * troponins were negative. * #Hypokalemia: resolved. #History of CAD; s/p CABG and stents. #HFpEF: not in exacerbation. #Hypertension: On amlodipine and Lasix as well as hydralazine. #Hyperlipidemia: On amlodipine and hydralazine. #Paroxysmal afib: on amiodarone and eliquis. #Type 2 diabetes mellitus: not on diabetic meds. ISS. Accuchecks ACHS. On gabapentin. DVT prophylaxis: already on eliquis. Disposition: anticipate dc over the next 24 to 48 hours. Charges/Coding Visit Charges Inpatient E&M: 28547 Subs Hosp L2
[2023-01-07] MEDS: Pantoprazole Sodium 40 MG in 0.9% Normal Saline (100mL MB+) 100 ML 330 MG IV (10:52)
[2023-01-07] MEDS: carBAMazepine 200 MG/10 ML UDC GT ×2 (10:52→21:01)
[2023-01-07] MEDS: Cefepime HCl 1 GM in 0.9% Normal Saline (50mL MB+) 50 ML IV ×2 (10:52→21:02)
[2023-01-07] MEDS: amLODIPine 2.5 MG Tablet GT (10:53)
[2023-01-07] MEDS: Jevity 1.5. 1,000 ML Bottle 250 ML GT ×4 (10:53→21:02)
[2023-01-07] MEDS: APIXABAN 5 MG TABLET GT ×2 (10:53→21:02)
[2023-01-07 11:29] LABS: Anisocytosis 2+; Differential Comment SCANNED; Hypochromasia 1+; Macrocytosis 1+; Microcytosis 1+
[2023-01-07] MEDS: 0.9% Saline Lock 10 ML Syringe IV (11:47)
[2023-01-07] MEDS: Morphine 2 MG/ML Syringe 1 MG IV (11:47)
[2023-01-07 11:57] LABS: Bedside Glucose 165 mg/dL (74-106)
[2023-01-07 13:47] LABS: Bedside Glucose 233 mg/dL (74-106)
[2023-01-07 18:07] LABS: Bedside Glucose 234 mg/dL (74-106)
[2023-01-07 22:37] LABS: Bedside Glucose 267 mg/dL (74-106)
[2023-01-08] VITALS (12 sets, daily range): BP systolic 132–169; BP diastolic 53–107; PULSE 76–91; RESP 18–30; TEMP 36.5–37.1; O2SAT 93–99; BMI 37.5
[2023-01-08] MEDS: Insulin Lispro 100 UNIT/ML INSULN.PEN SC ×5 (02:43→21:17)
[2023-01-08 03:24] LABS: Bedside Glucose 222 mg/dL (74-106)
[2023-01-08 05:35] LABS: Absolute Lymphocyte Count 1.89 X10^3/uL (0.83-4.51); Absolute Neutrophil Count 7.9 X10^3/uL (2.0-7.7); Basophil# 0.05 X10^3/uL; Basophil% 0.5 % (0-1); Eosinophil# 0.31 X10^3/uL; Eosinophils% 2.9 % (0-5); Hemoglobin 9.7 g/dL (12.0-15.0); Lymphocyte # 1.89 X10^3/ul (0.83-4.51); Lymphocyte % 17.4 % (19-41); Mean Corp Hgb Conc 27.7 g/dL (32-36); Mean Corpuscular Hgb 22.5 pg (27.0-32.0); Mean Platelet Vol. 9.9 fl (6.2-12.0); Monocyte# 0.63 X10^3/uL; Monocyte% 5.8 % (0-10); NRBC Flagged by Analyzer 0 % (0-5); Neutrophil # 7.89 X10^3/uL (2.7-7.7); Neutrophil % 72.5 % (47-70); POSITIVE COUNT YES; POSITIVE MORPHOLOGY YES; RBC Distribution Width CV 23.2 % (11.6-14.6); RBC Distribution Width SD 66.9 fl (35.1-43.9); Red Blood Count 4.32 M/mm3 (4.2-5.4); White Blood Count 10.9 K/mm3 (4.4-11.0)
[2023-01-08 05:39] LABS: Differential Indicated SCAN CRITERIA MET
[2023-01-08 05:44] LABS: Anion Gap 4 (5-15); BUN 15 mg/dL (7-18); BUN/Creat Ratio 23.3 RATIO (10-20); Calcium,Total 8.6 mg/dL (8.5-10.1); Chloride 108 mmol/L (98-107); Creatinine, Serum 0.64 mg/dL (0.55-1.02); EST Glomerular Filtration Rate 94 mL/min (>60); Est Glom Filt Rate - Afr Amer 114 mL/min (>60); Glucose 160 mg/dL (74-106); Potassium 3.7 mmol/L (3.5-5.1); Sodium Level 144 mmol/L (136-145)
[2023-01-08] MEDS: hydrALAZINE 50 MG Tablet GT ×3 (06:04→20:57)
[2023-01-08 06:28] LABS: Bedside Glucose 161 mg/dL (74-106)
[2023-01-08] MEDS: Amiodarone 200 MG Tablet 100 MG GT (09:04)
[2023-01-08] MEDS: APIXABAN 5 MG TABLET GT ×2 (09:04→20:58)
[2023-01-08] MEDS: Gabapentin 600 MG Tablet GT ×3 (09:08→18:57)
[2023-01-08 09:13] LABS: Anisocytosis 2+
[2023-01-08 09:14] LABS: Platelet Estimate SLT DEC (ADEQ)
--- NOTE | 2023-01-08 09:18 | PN.SURG_ITS ---
Subjective Subjective Patient is much more alert and oriented than she was on Sunday. She is complaining of some mild pain at the PEG insertion site Objective Data Objective Data Vital Signs: Vital Signs Temp Pulse Resp BP Pulse Ox O2 Del Method O2 Flow Rate 98.1 F 85 30 H 148/64 H 96 Room Air 1 01/08/23 08:00 01/08/23 08:00 01/08/23 08:00 01/08/23 08:00 01/08/23 08:47 01/08/23 08:47 01/06/23 19:56 Oxygen Flow Rate (L/min) 1 Oxygen Delivery Method Room Air Weight: 192 lb 3.889 oz Body Mass Index (BMI) 37.5 Intake & Output: Intake and Output for Last 24 Hours 01/06/23 01/07/23 01/08/23 23:59 23:59 23:59 Intake Total 690 / 690 2360 / 2360 430 / 430 Output Total 1890 / 1890 780 / 780 200 / 200 Balance -1200 / -1200 1580 / 1580 230 / 230 Lab / Micro Data 01/08/23 05:15 01/08/23 05:15 Labs: Laboratory Results - last 24 hr 01/07/23 06:12: Differential Comment SCANNED, Hypochromasia 1+, Anisocytosis 2+, Microcytosis 1+, Macrocytosis 1+ 01/07/23 10:48: POC Glucose 165 H 01/07/23 13:16: POC Glucose 233 H 01/07/23 17:42: POC Glucose 234 H 01/07/23 22:18: POC Glucose 267 H 01/08/23 02:32: POC Glucose 222 H 01/08/23 05:15: WBC 10.9, RBC 4.32, Hgb 9.7 L, Hct 35.0 L, MCV 81.0, MCH 22.5 L, MCHC 27.7 L, RDW Std Deviation 66.9 H, RDW Coeff of Carissa 23.2 H, Plt Count TNP, MPV 9.9, Immature Gran % (Auto) 0.900, Neut % (Auto) 72.5 H, Lymph % (Auto) 17.4 L, [place] % (Auto) 5.8, Eos % (Auto) 2.9, Baso % (Auto) 0.5, Absolute Neuts (auto) 7.9 H, Absolute Lymphs (auto) 1.89, Nucleated RBC % 0, Platelet Estimate SLT DEC, Anisocytosis 2+, Sodium 144, Potassium 3.7, Chloride 108 H, Carbon Dioxide 32.0, Anion Gap 4 L, BUN 15, Creatinine 0.64, Estim Creat Clear Calc 33.30, Est GFR (MDRD) Af Amer 114, Est GFR (MDRD) Non-Af 94, BUN/Creatinine Ratio 23.3 H, Glucose 160 H, Calcium 8.6 01/08/23 06:03: POC Glucose 161 H Micro: Microbiology 01/02/23 14:45 Blood Culture (Wb) - Arm Left Blood Culture - Final No growth in 5 days. 01/02/23 16:09 Blood Culture (Wb) - Anticubital Right Blood Culture - Final Streptococcus alactolyticus 01/02/23 12:35 Urine Catheter - Catheter Urine Culture - Final Citrobacter freundii Proteus mirabilis Physical Exam Narrative Abdomen is soft and nondistended. Mildly tender at the PEG site. Assessment & Plan Assessment/Plan (1) Perforated stomach: PLAN: Patient is tolerating tube feeds. I would like her reevaluated by speech therapy today as she is much more alert and oriented and may pass swallow eval. I loosened her bumper on her PEG tube as it was eroding into the skin a little bit and this might be the cause of her pain. Patient's white count is returned to normal and her hemoglobin is stable. She has been resumed on her oral anticoagulation. She may resume tube feeds as tolerated. Diet as tolerated per speech therapy. I am okay with her being discharged in the coming days. Xavier Valenzuela MD Pager: [facility] [address] [place] [address], [address] [place] [address] Office:
[2023-01-08] MEDS: Cefepime HCl 1 GM in 0.9% Normal Saline (50mL MB+) 50 ML IV ×2 (09:20→20:56)
[2023-01-08] MEDS: Jevity 1.5. 1,000 ML Bottle 250 ML GT ×2 (09:26→18:53)
[2023-01-08] MEDS: carBAMazepine 200 MG/10 ML UDC GT ×2 (09:26→20:58)
[2023-01-08] MEDS: amLODIPine 2.5 MG Tablet GT (09:30)
[2023-01-08 09:44] LABS: Bedside Glucose 158 mg/dL (74-106)
[2023-01-08] MEDS: Pantoprazole Sodium 40 MG in 0.9% Normal Saline (100mL MB+) 100 ML 330 MG IV (09:53)
--- NOTE | 2023-01-08 11:13 | ST.MBS ---
Modified Barium Swallow Patient Information Study Date: 01/08/23 Study Time: 10:30 Direct Billable Minutes: 77 Total Minutes procedure & reportin Diagnosis: PNA J18.9 Referring Physician: Xavier Valenzuela Reason for Referral: Objectively assess swallow function, assess risk for aspiration, and determine recommendations for least restrictive diet textures and compensatory strategies to improve safety of swallow. Medical History: PMH: MS, Dysphagia, Dementia, Atherosclerotic heart disease of [place] coronary artery without angina pectoris, Carcinoma of lip, Chronic GI bleeding, Diastolic CHF, GERD, Former smoker, HTN, Hx of DVT, Restrictive airway disease, Trigeminal neuralgia, DM type 2. She presented to [facility] ED 01/02/2023 from [facility] with chest discomfort and altered mental status. She was admitted initially for management of altered mental status and UTI; however, on acute stay her PEG tube began bleeding. Patient required emergent surgery for stomach perforation and was transferred to ICU following surgery. She was referred for ST consult due to hx of dysphagia and concerns for high aspiration risk given persistent confusion. BSE 01/05/2023 recommended NPO with plans for MBSS prior to diet advancement. She was not appropriate for MBSS 01/05/2023 due to confusion and decreased participation. Patient scheduled for MBSS today to be considered for further diet advancement. Patient is familiar to this ST department with history of oropharyngeal dysphagia. The patient did require PEG tube be placed after MBSS completed on 05/03/2021 revealed severe oropharyngeal dysphagia and recommended NPO. She participated in oropharyngeal strengthening with ST at her SNF and demonstrated excellent progress. Most recent MBSS (02/02/2022) revealed mild oropharyngeal dysphagia and recommended Soft and Bite Size textures (IDDSI Level 6) / [place]/Mildly Thick Liquids utilizing the following Compensatory Strategies: Small Bites, Small Sips, Slow Rate, Multiple Swallows - Encourage double swallows with bites and sips, Sitting upright, Remain sitting upright for 30 minutes after PO intake. At [facility], she had been consuming mostly all intake by mouth prior to current admission. Current Diet Ordered: NPO Dentition: Missing Teeth (Mostly edentulous, no dentures present, some natural teeth on the bottom) Mental Status: Impaired (difficulty following commands to keep good posture for optimal imaging) Respiratory Status: Oxygenating on 2L/M nasal cannula Penetration-Aspiration Scale Penetration-Aspiration Scale: OBJECTIVE ASSESSMENT OF SWALLOW FUNCTION (QUANTITATIVE ? PER TRIAL): PENETRATION / ASPIRATION SCALE (ALVAREZ): 1 = does not enter airway 2 = enters airway/above vocal folds/ejected 3 = enters airway/above vocal folds/not ejected 4 = enters airway/contacts vocal folds/ejected 5 = enters airway/contacts vocal folds/not ejected 6 = enters airway/below vocal folds/ejected 7 = enters airway/below vocal folds/not ejected despite effort 8 = enters airway/below vocal folds/no effort VIDEOFLOROSCOPIC SCALE SCORE (ALVAREZ): Grade I = aspiration of material that has penetrated into the laryngeal vestibule, intact cough reflex Grade II = aspiration < 10 % of the bolus, intact cough reflex Grade III = aspiration of < 10 % of the bolus, reduced cough reflex or aspiration of > 10 % of the bolus, intact cough reflex Grade IV = aspiration of > 10 % of the bolus, reduced cough reflex Penetration-Aspiration Scale Score Thin Liquid via teaspoon: Result: 2= enter airway/above vocal folds/ejected Thin Liquid via small single sip: cup: Result: 3= enters airways/above vocal folds/not ejected [place] Thick Liquid via small single sip: cup: Result: 1= does not enter airway Pudding via teaspoon: Result: 1= does not enter airway 1/4 Cookie: Result: 1= does not enter airway [place] Thick Liquid via single sip: straw: Result: 3= enters airways/above vocal folds/not ejected (trace) [place] Thick Liquid via small single sip: cup Trial 2: Result: 1= does not enter airway Oral Phase Labial Seal: Escape beyond mid-chin Tongue Control During Bolus Hold: Posterior escape of less than half of bolus Bolus Preparation/Mastication: Disorganized chewing/mashing with solid pieces of bolus unchewed Bolus Transport/Lingual Motion: Delayed initiation of tongue motion Oral Residue: Residue collection on oral structures Pharyngeal Phase Initiation of Pharyngeal Swallow: Bolus head in valleculae Soft Palate Elevation: No bolus between soft palate and pharyngeal wall Laryngeal Elevation: Partial superior movement thyroid cart/partial apprx aryt-epig petiole Anterior Hyoid Excursion: Partial anterior movement Epiglottic Movement: Complete inversion Laryngeal Vestibule Closure at Height of Swallow: Incomplete; narrow column of air/contrast in laryngeal vestibule Pharyngeal Stripping Wave: Present - diminished Pharyngoesophageal Segment Opening: Parital distension and partial duration; parital obstruction of flow Tongue Base Retraction: Narrow column of contrast between tongue base & post. pharyngeal wall Pharyngeal Residue: Collection of residue within or on pharyngeal structures Diagnosis/Impression Diagnosis: Mild-moderate oropharyngeal phase dysphagia R13.12 Impression: For all the above mentioned trials, WEB MARKETING SPECIALIST is unable to definitively rule out aspiration due to patient's body habitus. She required max verbal and tactile cues to maintain posture for optimal imaging. The oral phase is primarily marked by... -Decreased bolus control with premature loss of <1/2 the bolus to the pharynx. -Some oral holding with WEB MARKETING SPECIALIST cueing the patient to swallow, which was likely due to the patient disliking the taste of the barium. -Collection of oral residue with thin liquid requiring a second swallow to clear, which the patient independently initiated. -Slow mastication with small pieces of cookie appearing un-chewed. The pharyngeal phase is primarily marked by... -Decreased airway closure during the swallow due to poor anterior hyoid excursion and decreased laryngeal elevation. Laryngeal penetration of thin liquids via cup and nectar/mildly thick liquids via straw did not fully eject from the laryngeal vestibule after the swallow. -Decreased pharyngeal motility due to decreased pharyngeal stripping wave and tongue base retraction with mild residues of thin liquids and cookie in the vallecula after the swallow. Recommendations Diet: Mechanical Soft Textures (Soft and bite size textures (IDDSI Level 6)) and [place]-thick Liquids (Mildly Thick Liquids (IDDSI Level 2)) Compensatory Strategies: Small Bites, Small Sips, No Straws, Slow Rate, Alternate bites/solids and sips/liquids, Sitting upright and Remain sitting upright for 30 minutes after PO intake Supervision: 1:1 Close Supervision Recommend Repeat Modified Barium Swallow: TBD (If concern for increased s/s of aspiration or worsening respiratory status) Need for Skilled Speech Therapy Services: Yes Comment: Will recommend the patient for dysphagia therapy to address deficits in oropharyngeal swallow function. Will recommend the patient for oropharyngeal strengthening to improve lingual control, hyolaryngeal elevation/excursion, and tongue base retraction (lingual resistance exercises, Ramila, Shelia, Effortful breath hold and swallow). The patient would benefit from thorough education regarding recommended diet textures and compensatory strategies. Education Completed: 1. Described result of evaluation. and 2. Pt understands evaluation & agrees with goals and treatment plan. Status Active ST Patient: Active Contact Information [facility] Speech Therapy:: Delma Arteaga M.A. [facility]-WEB MARKETING SPECIALIST Speech-Language Pathologist [address] [address] [email or web address] [phone]
--- NOTE | 2023-01-08 11:51 | CASEMGMT ---
Discharge Planning Updates sent to [place] via [facility]. Lakisha Caicedo, Discharge Planning Asst.
--- NOTE | 2023-01-08 12:35 | RAD_ITS ---
STUDY: X-RAY CHEST REASON FOR EXAM: Female, 77 years old. Sob TECHNIQUE: Single AP portable view of the chest. COMPARISON: Comparison is made with prior study dated January 02, 2023. FINDINGS: EKG electrodes are seen. Increased density in the left lower lobe suggestive of either atelectasis and/or infiltrate. Blunting of the left costophrenic angle. Mild increased markings at the right lung base suggestive of atelectasis. Sternal cerclage wires and vascular clips are present from a prior sternotomy and coronary artery bypass graft procedure (CABG). There is calcification of the mitral valve annulus. Normal mediastinum and alee. Normal visualized pulmonary arteries. Normal visualized aortic arch and descending thoracic aorta. There are diffuse degenerative changes of the visualized thoracic spine. There is degenerative osteoarthritis of the bilateral shoulders. There is no demonstrated abnormality of the visualized soft tissue structures of the upper abdomen. RAD/Chest 1 View IMPRESSION: Increased density in the left lower lobe suggestive of left lower lobe atelectasis and/or infiltrate with blunting of the left costophrenic angle. Electronically Signed: Milo Hughes MD at 13:12 EST ,
[2023-01-08] MEDS: Albuterol 2.5 MG/3 ML VIAL.NEB. INHALATION (12:51)
--- NOTE | 2023-01-08 13:07 | PCM.PN.BLA ---
Assessment & Plan Assessment/Plan (1) Perforated stomach: PLAN: Bedside removal of СЕРГЕЙ drain: Patient's abdomen was prepped with Betadine. Suture was trimmed at the СЕРГЕЙ tube. СЕРГЕЙ tube was removed off of suction and entire СЕРГЕЙ drain was removed. Single skin suture remains in place. Betadine was used to cleanse the skin again prior applying two 2 x 2 gauze dressings secured with tape. Abdominal binder was secured into place. Patient tolerated the removal well. Change drain site dressing daily. I will remove the remaining part of the suture in 2 days. Visit Charges Inpatient E&M: 42695 [facility] Hosp L1 (no charge; post-op)
--- NOTE | 2023-01-08 13:49 | PN_ITS ---
Subjective Subjective Patient seen and examined. She had no active complaints. She had an uneventful night. Review of systems otherwise negative. She is due for modified barium swallow. Leucocytosis has resolved. REview of systems is otherwise negative. Objective Data Objective Data Vital Signs: Vital Signs Temp Pulse Resp BP Pulse Ox O2 Del Method O2 Flow Rate 98.2 F 84 24 H 165/61 H 98 Nasal Cannula 1 01/08/23 11:58 01/08/23 12:52 01/08/23 12:52 01/08/23 12:04 01/08/23 12:52 01/08/23 12:52 01/08/23 12:52 Oxygen Flow Rate (L/min) 1 Oxygen Delivery Method Nasal Cannula Weight: 192 lb 3.889 oz Body Mass Index (BMI) 37.5 Intake & Output: Intake and Output for Last 24 Hours 01/06/23 01/07/23 01/08/23 23:59 23:59 23:59 Intake Total 690 / 690 2360 / 2360 590 / 590 Output Total 1890 / 1890 780 / 780 200 / 200 Balance -1200 / -1200 1580 / 1580 390 / 390 Lab / Micro Data 01/08/23 05:15 01/08/23 05:15 Labs: Laboratory Results - last 24 hr 01/07/23 17:42: POC Glucose 234 H 01/07/23 22:18: POC Glucose 267 H 01/08/23 02:32: POC Glucose 222 H 01/08/23 05:15: WBC 10.9, RBC 4.32, Hgb 9.7 L, Hct 35.0 L, MCV 81.0, MCH 22.5 L, MCHC 27.7 L, RDW Std Deviation 66.9 H, RDW Coeff of Carissa 23.2 H, Plt Count TNP, MPV 9.9, Immature Gran % (Auto) 0.900, Neut % (Auto) 72.5 H, Lymph % (Auto) 17.4 L, [place] % (Auto) 5.8, Eos % (Auto) 2.9, Baso % (Auto) 0.5, Absolute Neuts (auto) 7.9 H, Absolute Lymphs (auto) 1.89, Nucleated RBC % 0, Platelet Estimate SLT DEC, Anisocytosis 2+, Sodium 144, Potassium 3.7, Chloride 108 H, Carbon Dioxide 32.0, Anion Gap 4 L, BUN 15, Creatinine 0.64, Estim Creat Clear Calc 33.30, Est GFR (MDRD) Af Amer 114, Est GFR (MDRD) Non-Af 94, BUN/Creatinine Ratio 23.3 H, Glucose 160 H, Calcium 8.6 01/08/23 06:03: POC Glucose 161 H 01/08/23 09:24: POC Glucose 158 H Micro: Microbiology 01/02/23 14:45 Blood Culture (Wb) - Arm Left Blood Culture - Final No growth in 5 days. 01/02/23 16:09 Blood Culture (Wb) - Anticubital Right Blood Culture - Final Streptococcus alactolyticus 01/02/23 12:35 Urine Catheter - Catheter Urine Culture - Final Citrobacter freundii Proteus mirabilis Radiography Diagnostic Testing: Radiology Impression Chest X-Ray 01/08/23 12:35 IMPRESSION: Increased density in the left lower lobe suggestive of left lower lobe atelectasis and/or infiltrate with blunting of the left costophrenic angle. Electronically Signed: Milo Hughes MD at 13:12 EST , Physical Exam Const alert, oriented x3 and no apparent distress General Appearance: cooperative and comfortable HEENT normocephalic, head/scalp atraumatic, hearing grossly normal bilaterally, nasal mucous membranes and turbinates normal, moist oral mucous membranes and oropharynx normal Eyes PERRL, EOMs intact bilaterally and conjunctivae normal Neck full ROM, no lymphadenopathy and supple Lymph Lymphatic: no lymphadenopathy noted Chest inspection of chest normal Resp normal respiratory effort, normal air movement, no use of accessory muscles and clear to auscultation bilaterally Resp Narrative: mildly diminished breath sounds bibasally, no wheezes or crackles. On room air. Cardio regular rate, regular rhythm, S1 normal heart sound, S2 normal heart sound, no murmurs and peripheral pulses 2+ throughout GI GI Narrative: abdominal binder in place, PEG Tube in situ, СЕРГЕЙ drain in situ- to be removed today Back/Spine normal ROM Extremity normal to inspection, normal capillary refill, no clubbing, cyanosis or edema and no pedal edema General Extremity: no tenderness to palpation of joints or extremities Skin no rashes or lesions noted General Skin Exam: no breakdown Neuro CN's II-XII intact bilaterally, no focal motor deficits and no sensory deficits noted Motor Exam: general weakness Psych thought process normal, cooperative and affect normal Appearance: appropriate Assessment & Plan Assessment/Plan (1) Perforated stomach: (2) Sepsis: (3) Urinary tract infection: (4) Malfunction of gastrostomy tube: PLAN: Plan #Sepsis * was thought to be due to recurrent UTI * wbc down to 11 today and continues to trend donwareds. * patient started bleeding from her PEG tube and CT scan showed evidence of pneumoperitoneum, with PEG tube thought to be in spleen. * PEG tube had been noted to be dislodged and she was brought to the ED, where PEG tube was replaced. * s/p emergency exploratory laparoscopy with partial gastric resection and placement of G-tube. * on IV cefepime. Continue IV cefepime for today * blood cultures growing Strep alactolyticus in 1/2 samples; urine cultures growing Citrobacter freundii and Proteus mirabilis. These are all sensitive to cefepime * Breathing treatments bronchodilators. * will dc cefepime today * patient tachypneic today; will get CXR to evaluate for fluid overload. she is in positive balance by 672mls. Will give a dose of IV lasix 40mg x 1 * #Malfunctioning PEG tube: As above #Acute encephalopathy * improved markedly. Patient able to answer questions now. * CT of the brain was negative for any acute intracranial pathology. Does have baseline dementia and lives in a long term. Will monitor. #Severe oropharyngeal dysphagia: * PEG tube in place. * per general surgery, tube feeds can be resumed. However she had increased residuals so tube feeds were held. Tube feeds resumed yesternight. * Dietitian on board to give recommendations about tube feeds. * for modified barium swallow today #Chest pain * reportedly had chest pain at her SNF. * during surgery, noted to have some ST changes on monitor * EKG done showed some ST changes in lateral leads. * troponins were negative. * #Hypokalemia: resolved. #History of CAD; s/p CABG and stents. #HFpEF: not in exacerbation. #Hypertension: On amlodipine and Lasix as well as hydralazine. #Hyperlipidemia: On amlodipine and hydralazine. #Paroxysmal afib: on amiodarone and eliquis. #Type 2 diabetes mellitus: not on diabetic meds. ISS. Accuchecks ACHS. On gabapentin. DVT prophylaxis: already on eliquis. Disposition: anticipate dc likely tomorrow. Charges/Coding Visit Charges Inpatient E&M: 21829 Subs Hosp L2
[2023-01-08] MEDS: 0.9% Saline Lock 10 ML Syringe IV (14:30)
[2023-01-08] MEDS: Furosemide 40 MG/4 ML Vial IV (14:30)
[2023-01-08 15:37] LABS: Bedside Glucose 199 mg/dL (74-106)
[2023-01-08 19:11] LABS: Bedside Glucose 115 mg/dL (74-106)
[2023-01-08] MEDS: Acetaminophen 650 MG/20 ML UDC GT (20:59)
--- NOTE | 2023-01-08 21:34 | CT_ITS ---
STUDY: CTA CHEST REASON FOR EXAM: Female, 77 years old with concern for aspiration. UTI and altered mental status. TECHNIQUE: CT angiogram of chest was performed with the intravenous administration of 100 ml [id number]. Post-processing of the angiographic images was performed, with MIP and MPR reconstructions. Individualized dose optimization techniques were used for this CT. COMPARISON: CT abdomen and pelvis from 01/02/2023 FINDINGS: PULMONARY ARTERIES: No pulmonary arterial filling defects identified. AORTA AND VISUALIZED GREAT VESSELS: Atherosclerosis with no thoracic aortic aneurysm or dissection. Great vessels are patent. HEART AND PERICARDIUM: Heart size upper limits normal with coronary arterial calcifications and stents. Previous CABG. No significant pericardial effusion. MEDIASTINUM AND FATMATA: No mediastinal or hilar adenopathy. Esophagus is unremarkable. LUNGS, PLEURA AND LARGE AIRWAYS: Small left pleural effusion and trace right pleural effusion with partial atelectasis bilateral lower lobes. No pulmonary mass. No pneumothorax. BONES: Skeletal degenerative changes. Status post sternotomy. CHEST WALL: No chest wall mass or acute findings. THYROID: 13 mm diameter low-attenuation lesion and smaller rim calcified lesions within left lobe of thyroid gland. VISUALIZED ABDOMEN: Partially imaged upper abdomen. Percutaneous gastrostomy tube no longer visualized (removed versus excluded from [id number]). Residual ill-defined collection of fluid, fat stranding and small amount of extraluminal gas within left upper quadrant measuring 5 cm diameter. Collection is located lateral to stomach and medial to spleen. CT/CTA Chest W/WO Contrast IMPRESSION: 1. Poorly organized abscess collection and/or hematoma forming within left upper quadrant of abdomen. Prior examination demonstrated free abdominal air, possibly secondary to recent PEG tube placement and/or gastric perforation. Clinical correlation and close follow-up recommended. 2. Small pleural effusions with left greater than right basilar atelectatic changes. 3. No pulmonary embolus identified. 4. Rim calcified cysts and/or nodules within left lobe of thyroid gland. Follow-up as clinically warranted. Electronically Signed: Nicanor Hester MD at 22:53 EST ,
[2023-01-08 22:41] LABS: Bedside Glucose 194 mg/dL (74-106)
[2023-01-08 22:51] LABS: Troponin-I HS 33 pg/mL (3.0-54.0)
[2023-01-08 23:10] LABS: Allen Test Positive; Base Excess 11 mmol/L (-2 to +2); Bicarbonate 34.4 mmol/L (22-26); Blood Gas Specimen Type ART; Mode Not entered; O2 Delivery Device Cannula; PO2 96 mmHG (75-100); SITE L Radial; SO2 98 % (95-99); Total Carbon Dioxide 36 mmol/L; pCO2 45.9 mmHg (35-45); pH 7.48 (7.35-7.45)
[2023-01-09] VITALS (7 sets, daily range): BP systolic 121–155; BP diastolic 51–71; PULSE 72–87; RESP 16–22; TEMP 36.6–36.9; O2SAT 92–95
[2023-01-09] MEDS: Insulin Lispro 100 UNIT/ML INSULN.PEN SC ×3 (03:31→10:15)
[2023-01-09] MEDS: hydrALAZINE 50 MG Tablet GT ×2 (05:58→12:37)
[2023-01-09 06:33] LABS: Bedside Glucose 159 mg/dL (74-106)
[2023-01-09 06:33] LABS: Bedside Glucose 161 mg/dL (74-106)
[2023-01-09 07:39] LABS: Absolute Lymphocyte Count 2.33 X10^3/uL (0.83-4.51); Basophil# 0.08 X10^3/uL; Basophil% 0.6 % (0-1); Eosinophil# 0.44 X10^3/uL; Eosinophils% 3.2 % (0-5); Hematocrit 34.9 % (37-47); Hemoglobin 9.1 g/dL (12.0-15.0); Lymphocyte # 2.33 X10^3/ul (0.83-4.51); Mean Corp Hgb Conc 26.1 g/dL (32-36); Mean Corpuscular Volume 84.5 fL (81-99); Mean Platelet Vol. 10.2 fl (6.2-12.0); Monocyte# 0.73 X10^3/uL; Monocyte% 5.3 % (0-10); NRBC Flagged by Analyzer 0 % (0-5); Neutrophil # 10.03 X10^3/uL (2.7-7.7); Neutrophil % 73.2 % (47-70); POSITIVE MORPHOLOGY YES; Platelet Count 294 K/mm3 (150-450); RBC Distribution Width CV 23.1 % (11.6-14.6); RBC Distribution Width SD 70.7 fl (35.1-43.9); Red Blood Count 4.13 M/mm3 (4.2-5.4); White Blood Count 13.7 K/mm3 (4.4-11.0)
[2023-01-09 07:42] LABS: Differential Indicated SCAN CRITERIA MET
[2023-01-09 08:05] LABS: Anion Gap 1 (5-15); BUN 17 mg/dL (7-18); BUN/Creat Ratio 19.8 RATIO (10-20); Calcium,Total 8.9 mg/dL (8.5-10.1); Chloride 104 mmol/L (98-107); Creatinine, Serum 0.86 mg/dL (0.55-1.02); EST Glomerular Filtration Rate 68 mL/min (>60); Est Glom Filt Rate - Afr Amer 82 mL/min (>60); Estimated Creatinine Clearance 38.72 ml/min; Glucose 161 mg/dL (74-106); Potassium 3.4 mmol/L (3.5-5.1); Sodium Level 142 mmol/L (136-145)
[2023-01-09 08:14] LABS: Anisocytosis 1+; Hypochromasia 2+
--- NOTE | 2023-01-09 09:32 | PCM.PN.SRG ---
Subjective Subjective The patient was doing well yesterday but was requesting to eat orally. She had a modified barium swallow and speech evaluation there was concern for aspiration. A CT of the chest was ordered. Objective Data Objective Data Vital Signs: Vital Signs Temp Pulse Resp BP Pulse Ox O2 Del Method O2 Flow Rate 97.8 F 79 22 H 121/71 H 95 Room Air 2 01/09/23 03:45 01/09/23 05:58 01/09/23 03:45 01/09/23 05:58 01/09/23 07:49 01/09/23 07:49 01/08/23 21:00 Oxygen Flow Rate (L/min) 2 Oxygen Delivery Method Room Air Weight: 192 lb 3.889 oz Body Mass Index (BMI) 37.5 Intake & Output: Intake and Output for Last 24 Hours 01/07/23 01/08/23 01/09/23 23:59 23:59 23:59 Intake Total 2360 / 2360 1850 / 1850 250 / 250 Output Total 780 / 780 600 / 600 400 / 400 Balance 1580 / 1580 1250 / 1250 -150 / -150 Lab / Micro Data 01/09/23 07:05 01/09/23 07:05 Labs: Laboratory Results - last 24 hr 01/08/23 09:24: POC Glucose 158 H 01/08/23 15:18: POC Glucose 199 H 01/08/23 18:51: POC Glucose 115 H 01/08/23 21:15: POC Glucose 194 H 01/08/23 22:20: Troponin I High Sens 33, B-Natriuretic Peptide 379.0 H 01/09/23 03:30: POC Glucose 159 H 01/09/23 06:07: POC Glucose 161 H 01/09/23 07:05: WBC 13.7 H, RBC 4.13 L, Hgb 9.1 L, Hct 34.9 L, MCV 84.5, MCH 22.0 L, MCHC 26.1 L D, RDW Std Deviation 70.7 H, RDW Coeff of Carissa 23.1 H, Plt Count 294, MPV 10.2, Immature Gran % (Auto) 0.700, Neut % (Auto) 73.2 H, Lymph % (Auto) 17.0 L, [place] % (Auto) 5.3, Eos % (Auto) 3.2, Baso % (Auto) 0.6, Absolute Neuts (auto) 10.0 H, Absolute Lymphs (auto) 2.33, Nucleated RBC % 0, Hypochromasia 2+, Anisocytosis 1+, Sodium 142, Potassium 3.4 L, Chloride 104, Carbon Dioxide 37.0 H, Anion Gap 1 L, BUN 17, Creatinine 0.86, Estim Creat Clear Calc 38.72, Est GFR (MDRD) Af Amer 82, Est GFR (MDRD) Non-Af 68, BUN/Creatinine Ratio 19.8, Glucose 161 H, Calcium 8.9 Micro: Microbiology 01/02/23 14:45 Blood Culture (Wb) - Arm Left Blood Culture - Final No growth in 5 days. 01/02/23 16:09 Blood Culture (Wb) - Anticubital Right Blood Culture - Final Streptococcus alactolyticus 01/02/23 12:35 Urine Catheter - Catheter Urine Culture - Final Citrobacter freundii Proteus mirabilis ABG Data ABG results: ABG 01/08/23 23:08 Specimen Type ART Sample Site L Radial pH 7.48 H Bicarbonate Actual 34.4 H Total CO2 36 Base Excess 11 H O2 Saturation 98 O2 % 2.0 ABG pCO2 45.9 H ABG pO2 96 Rakesh Test Positive O2 Delivery Device Cannula Vent Mode Not entered Radiography Diagnostic Testing: Radiology Impression Chest X-Ray 01/08/23 12:35 IMPRESSION: Increased density in the left lower lobe suggestive of left lower lobe atelectasis and/or infiltrate with blunting of the left costophrenic angle. Electronically Signed: Milo Hughes MD at 13:12 EST , Chest CTA 01/08/23 21:34 IMPRESSION: 1. Poorly organized abscess collection and/or hematoma forming within left upper quadrant of abdomen. Prior examination demonstrated free abdominal air, possibly secondary to recent PEG tube placement and/or gastric perforation. Clinical correlation and close follow-up recommended. 2. Small pleural effusions with left greater than right basilar atelectatic changes. 3. No pulmonary embolus identified. 4. Rim calcified cysts and/or nodules within left lobe of thyroid gland. Follow-up as clinically warranted. Electronically Signed: Nicanor Hester MD at 22:53 EST , Physical Exam Const oriented x3 and no apparent distress Resp normal respiratory effort GI soft to palpation and non-tender Assessment & Plan Assessment/Plan (1) Perforated stomach: PLAN: Patient seems to be improving. Her white count did slightly rise today but there was a lot of concern for aspiration yesterday. CTA did not show any PE or early aspiration pneumonia. Continue tube feeds. Xavier Valenzuela MD Pager: [facility] [address] [place] [address], [address] [place] [address] Office:
[2023-01-09] MEDS: Amiodarone 200 MG Tablet 100 MG GT (09:54)
[2023-01-09] MEDS: APIXABAN 5 MG TABLET GT (09:55)
[2023-01-09] MEDS: amLODIPine 2.5 MG Tablet GT (09:56)
[2023-01-09] MEDS: carBAMazepine 200 MG/10 ML UDC GT (09:56)
[2023-01-09] MEDS: Gabapentin 600 MG Tablet GT ×2 (10:03→12:16)
[2023-01-09] MEDS: 0.9% Saline Lock 10 ML Syringe IV ×2 (10:08→12:39)
[2023-01-09] MEDS: Jevity 1.5. 1,000 ML Bottle 250 ML GT (10:15)
[2023-01-09] MEDS: Pantoprazole Sodium 40 MG in 0.9% Normal Saline (100mL MB+) 100 ML 330 MG IV (10:20)
[2023-01-09 10:33] LABS: Bedside Glucose 228 mg/dL (74-106)
[2023-01-09] MEDS: Cefepime HCl 1 GM in 0.9% Normal Saline (50mL MB+) 50 ML IV (11:13)
--- NOTE | 2023-01-09 11:40 | TREXTCAR_ITS ---
Diet Diet Order/Speech Therapy: 01/08/23 11:12 Carb [Diet: Carbohydrate Controlled] Food consistency:: Soft & Bite Sized Liquid Consistency:: [place]/Mildly Thick Is pt able to select menu?: No Diet Comments: Direct Supervision for meals, No straws, Meds crushed in Routine Orders/Code Status Enema Type: [place] Enema Frequency: Daily PRN O2 Frequency: PRN Keep PO Greater than or Equal to (%): 90 Wound(s) Abdomen: Wound Type: Surgical Incision left abdomen ness site: Wound Type: Surgical Incision Therapies Weight Bearing: Weight bearing as tolerated Physical Therapy: Eval and Treat Occupational Therapy: Eval and Treat Problem/Diagnosis (1) Perforated stomach: Status: Acute Code(s): K25.5 - Chronic or unspecified gastric ulcer with perforation Plan #Sepsis * was thought to be due to recurrent UTI * wbc down to 11 today and continues to trend donwareds. * patient started bleeding from her PEG tube and CT scan showed evidence of pneumoperitoneum, with PEG tube thought to be in spleen. * PEG tube had been noted to be dislodged and she was brought to the ED, where PEG tube was replaced. * s/p emergency exploratory laparoscopy with partial gastric resection and placement of G-tube. * on IV cefepime. Continue IV cefepime for today * blood cultures growing Strep alactolyticus in 1/2 samples; urine cultures growing Citrobacter freundii and Proteus mirabilis. These are all sensitive to cefepime * Breathing treatments bronchodilators. * will dc cefepime today * patient tachypneic today; will get CXR to evaluate for fluid overload. she is in positive balance by 672mls. Will give a dose of IV lasix 40mg x 1 * #Malfunctioning PEG tube: As above #Acute encephalopathy * improved markedly. Patient able to answer questions now. * CT of the brain was negative for any acute intracranial pathology. Does have baseline dementia and lives in a retirement. Will monitor. #Severe oropharyngeal dysphagia: * PEG tube in place. * per general surgery, tube feeds can be resumed. However she had increased residuals so tube feeds were held. Tube feeds resumed yesternight. * Dietitian on board to give recommendations about tube feeds. * for modified barium swallow today #Chest pain * reportedly had chest pain at her SNF. * during surgery, noted to have some ST changes on monitor * EKG done showed some ST changes in lateral leads. * troponins were negative. * #Hypokalemia: resolved. #History of CAD; s/p CABG and stents. #HFpEF: not in exacerbation. #Hypertension: On amlodipine and Lasix as well as hydralazine. #Hyperlipidemia: On amlodipine and hydralazine. #Paroxysmal afib: on amiodarone and eliquis. #Type 2 diabetes mellitus: not on diabetic meds. ISS. Accuchecks ACHS. On gabapentin. DVT prophylaxis: already on eliquis. Disposition: anticipate dc likely tomorrow. Allergies/Procedures Done in Hospital Allergies codeine Allergy (Unknown, Verified 01/02/23 09:55) Hives cefazolin Allergy (Verified 01/02/23 09:55) Rash ciprofloxacin [From Cipro] Allergy (Verified 01/02/23 09:55) Hives ciprofloxacin HCl [From Cipro] Allergy (Verified 01/02/23 09:55) Hives Tolerated Levaquin therapy despite allergy Latex, Natural Rubber Allergy (Verified 01/02/23 09:55) Rash Penicillins [PCN] Allergy (Verified 01/02/23 09:55) Hives vancomycin Allergy (Verified 01/02/23 09:55) Angioedema adhesive tape Adverse Reaction (Verified 01/02/23 09:55) Rash Procedures: None Type of Care/Length of Stay Estimated LOS: More Than 30 Days Type of Care Needed: Intermediate Rehab Potential: Poor Prognosis: Poor Additional Orders/Day of Discharge Day of Discharge: 01/09/23 Dietary and Speech Recommendations Dietitian Recommendations/Changes: Continue 250 ml Jevity 1.5 4x/day w/ 90 ml water flush before and after each feeding to provide ~ 1500 emilio 64 gm pro, 1480 ml free water. Discharge Plan Admission Admit Date/Time: 01/02/23 15:43 Primary Reason for Your Visit: malfunctioning PEG tube Attending Provider: Yolis Madsen Primary Care Provider: Uriel Mac Consulting Providers: Viraj Guillen; Xavier Valenzuela Instructions Patient Instructions: ED Feeding Tube Replacement Discharge Orders/Prescriptions Prescriptions: Continued albuterol sulfate 2.5 MG/3 ML solution for nebulization 2.5 mg inhalation Q2H PRN PRN (Reason: SOB/Wheezing) 0RF amlodipine 2.5 mg tablet 2.5 mg PO DAILY duloxetine 30 mg capsule,delayed release(DR/EC) 60 mg PO DAILY Jevity 1.5 Emilio 0.06 gram-1.5 kcal/mL Liquid 250 ml G-tube 4X/DAY Qty: 0 0RF ondansetron HCl 4 mg tablet 4 mg PO Q6H PRN (Reason: Nausea And Vomiting) guaifenesin 100 mg Tablet 600 mg PO Q12H mineral oil Enema 118 ml OH DAILY PRN (Reason: Constipation) magnesium hydroxide [Milk of Magnesia] 400 mg/5 mL Suspension 30 ml PO DAILY PRN (Reason: Constipation) bisacodyl 10 mg Suppository 10 mg OH DAILY PRN (Reason: Constipation) hydroxyzine HCl 25 mg Tablet 25 mg PO Q8 PRN (Reason: ITCHY RASH ON UPPER AND LOWER EXTREMITIES) estradiol 0.01 % (0.1 mg/gram) cream 1 applic VAGINAL QPM d-mannose 500 mg Capsule 2,000 mg PO DAILY furosemide 40 mg tablet 40 mg PO DAILY acetaminophen 325 mg tablet 650 mg PO Q6H PRN (Reason: PAIN AND FEVER) carbamazepine 200 mg/10 mL suspension 200 mg PO BID mupirocin 2 % Ointment 1 applic topical TID Qty: 0 0RF Protocol: *Topical Application Instructions APPLICATION INSTRUCTIONS: apply to peg site Rx Instructions: Place around PEG site time a total of 7 days nystatin [Nyamyc] 100,000 unit/gram Powder 1 applic topical TID Qty: 0 0RF Protocol: *Topical Application Instructions APPLICATION INSTRUCTIONS: to affected regions Rx Instructions: Placed in affected areas atorvastatin 20 MG tablet 20 mg PO QHS hydralazine 50 MG tablet 50 mg PO TID Rx Instructions: hold for bp less than 100/60 apixaban 2.5 MG tablet 5 mg PO BID amiodarone 100 mg tablet 100 mg PO DAILY gabapentin 800 mg tablet 800 mg PO TID Referrals / Follow Up: Xavier Valenzuela MD [Med Staff - Active Staff] - Within 2 Weeks Uriel Mac MD [Primary Care Provider] - Within 2 Weeks Disposition Disposition (needs filled in before D/C Order can be placed): [facility]
--- NOTE | 2023-01-09 11:42 | DS.PCM_ITS ---
Providers Date of Admission: 01/02/23 Date of Discharge: 01/09/23 Primary Care Physician: Dr. Uriel Mac MD Consultations 01/02/23 21:51 Consult: General Surgery Routine Consulting Provider: Xavier Valenzuela Reason for Consult: PEG tube malfunction EMERGENT Consult: No MD Notified: Yes Date Notified: 01/02/23 Time Notified: 21:52 Method of Notification: Verbal Reason For Visit: ALTERED MENTAL STATUS, UTI Diagnosis Discharge Diagnosis (1) Perforated stomach: Status: Acute Code(s): K25.5 - Chronic or unspecified gastric ulcer with perforation Plan #Sepsis * was thought to be due to recurrent UTI * wbc down to 11 today and continues to trend donwareds. * patient started bleeding from her PEG tube and CT scan showed evidence of pneumoperitoneum, with PEG tube thought to be in spleen. * PEG tube had been noted to be dislodged and she was brought to the ED, where PEG tube was replaced. * s/p emergency exploratory laparoscopy with partial gastric resection and placement of G-tube. * on IV cefepime. Continue IV cefepime for today * blood cultures growing Strep alactolyticus in 1/2 samples; urine cultures growing Citrobacter freundii and Proteus mirabilis. These are all sensitive to cefepime * Breathing treatments bronchodilators. * will dc cefepime today * patient tachypneic today; will get CXR to evaluate for fluid overload. she is in positive balance by 672mls. Will give a dose of IV lasix 40mg x 1 * #Malfunctioning PEG tube: As above #Acute encephalopathy * improved markedly. Patient able to answer questions now. * CT of the brain was negative for any acute intracranial pathology. Does have baseline dementia and lives in a jail. Will monitor. #Severe oropharyngeal dysphagia: * PEG tube in place. * per general surgery, tube feeds can be resumed. However she had increased residuals so tube feeds were held. Tube feeds resumed yesternight. * Dietitian on board to give recommendations about tube feeds. * for modified barium swallow today #Chest pain * reportedly had chest pain at her SNF. * during surgery, noted to have some ST changes on monitor * EKG done showed some ST changes in lateral leads. * troponins were negative. * #Hypokalemia: resolved. #History of CAD; s/p CABG and stents. #HFpEF: not in exacerbation. #Hypertension: On amlodipine and Lasix as well as hydralazine. #Hyperlipidemia: On amlodipine and hydralazine. #Paroxysmal afib: on amiodarone and eliquis. #Type 2 diabetes mellitus: not on diabetic meds. ISS. Accuchecks ACHS. On gabapentin. DVT prophylaxis: already on eliquis. Disposition: anticipate dc likely tomorrow. Medications at Discharge Home Medications albuterol sulfate 2.5 mg/3 mL (0.083 %) solution for nebulization 2.5 mg (3 mL) inhalation Q2H PRN PRN SOB/Wheezing 08/12/19 amlodipine 2.5 mg tablet 2.5 mg PO DAILY HTN 11/22/21 duloxetine 30 mg capsule,delayed release 60 mg PO DAILY depression 11/22/21 lactose-reduced food with fiber 0.06 gram-1.5 kcal/mL oral liquid (Jevity 1.5 Laureano) 250 ml G-tube 4X/DAY #0 mL 11/25/21 acetaminophen 325 mg tablet 650 mg PO Q6H PRN PAIN AND FEVER 01/31/22 bisacodyl 10 mg rectal suppository 10 mg AL DAILY PRN Constipation 01/31/22 carbamazepine 200 mg/10 mL oral suspension 200 mg PO BID trigeminal neuralgia 01/31/22 d-mannose 500 mg capsule 2,000 mg PO DAILY preventative for uti 01/31/22 estradiol 0.01% (0.1 mg/gram) vaginal cream 1 applic vaginal QPM UTI 01/31/22 furosemide 40 mg tablet 40 mg PO DAILY chf 01/31/22 guaifenesin 100 mg tablet 600 mg PO Q12H congestion 01/31/22 hydroxyzine HCl 25 mg tablet 25 mg PO Q8 PRN ITCHY RASH ON UPPER AND LOWER EX TREMITIES 01/31/22 magnesium hydroxide 400 mg/5 mL oral suspension (Milk of Magnesia) 30 ml PO CHRISTOPHER Y PRN Constipation 01/31/22 mineral oil 118 ml AL DAILY PRN Constipation 01/31/22 ondansetron HCl 4 mg tablet 4 mg PO Q6H PRN Nausea And Vomiting 01/31/22 mupirocin 2 % topical ointment 1 applic topical TID #0 grams 02/03/22 nystatin 100,000 unit/gram topical powder (Nyamyc) 1 applic topical TID #0 grams 02/03/22 apixaban 2.5 mg tablet 5 mg PO BID DVT 05/19/22 atorvastatin 20 mg tablet 20 mg PO QHS cholesterol 05/19/22 hydralazine 50 mg tablet 50 mg PO TID bp 05/19/22 amiodarone 100 mg tablet 100 mg PO DAILY afib 01/08/23 gabapentin 800 mg tablet 800 mg PO TID nerves 01/08/23 Hospital Course Operations - (ex laparoscopy with partial gastric resection and replacment of G tube) Summary of Care Provided Minutes Spent on Discharge: 55 Hospital Course: Patient is a 77-year-old female with a past medical history as outlined was admitted through the ED on 12/25/[facility] with a complaint of reported chest discomfort and altered mental status. She could not really answer questions when she came in but according to her son as she had been complaining of chest discomfort from earlier in the day. She had had a history of multiple UTIs. She had a PEG tube which was placed about 2 years prior to this admission for difficulty with swallowing. WBC was elevated at 21 on admission and she had a low-grade fever as well. There was concern for UTI with urinalysis showing 1+ bacteria and 25-[address] of the brain showed no acute intracranial pathology. She had multiple antibiotic allergies so she was started on IV aztreonam based on previous culture results. Was subsequently noted that patient was having blood come out of her PEG tube. General surgery was consulted. CAT scan of the abdomen had been concerning for pneumoperitoneum. General surgery saw patient and was concerned that his PEG tube was in the spleen so she was emergently taken to surgery on 01/03/2023 where she had exploratory laparoscopy with partial gastric resection and replacement of PEG tube. She was placed on IV cefepime which she tolerated. She had a СЕРГЕЙ drain put in which was eventually pulled by general surgery. She was subsequently placed back on her tube feeds. She was initially not tolerating this with high residuals but this subsequently resolved. She had modified barium swallow during this admission which showed evidence of dysphagia. Blood cultures grew strep alactolyticus in 1/2 samples; urine cultures growing Citrobacter freundii and Proteus mirabilis. These were all sensitive to cefepime. She completed 5 day course of IV cefepime. As mentioned, her СЕРГЕЙ drain was pulled. [facility]. She was discharged on the tube feeds [facility]. She is to follow-up with her primary care doctor and with general surgery within 1 to 2 weeks. Patient seen and examined. She had no active complaints and had an uneventful night. Review of systems otherwise negative. Labs and vitals reviewed. Home medication reviewed and reconciled. Physical Exam Const alert, oriented x3 and no apparent distress General Appearance: cooperative and comfortable HEENT normocephalic, head/scalp atraumatic, hearing grossly normal bilaterally, nasal mucous membranes and turbinates normal, moist oral mucous membranes and oropharynx normal Mouth: oral and palatal mucosa normal Eyes PERRL, EOMs intact bilaterally and conjunctivae normal Neck full ROM, no lymphadenopathy and supple Lymph Lymphatic: no lymphadenopathy noted Chest inspection of chest normal Resp normal respiratory effort, normal air movement, no use of accessory muscles and clear to auscultation bilaterally Cardio regular rate, regular rhythm, S1 normal heart sound, S2 normal heart sound, no murmurs and peripheral pulses 2+ throughout GI GI Narrative: abdominal binder in place, PEG Tube in situ, СЕРГЕЙ drain removed Back/Spine normal ROM Extremity normal to inspection, normal capillary refill, no clubbing, cyanosis or edema and no pedal edema Extremity Narrative: LUE edema has resolved. General Extremity: no tenderness to palpation of joints or extremities Skin no rashes or lesions noted General Skin Exam: no breakdown Neuro oriented x3, CN's II-XII intact bilaterally, moves all extremities, no focal motor deficits and no sensory deficits noted Sensorium / Orientation: awake Motor Exam: general weakness Psych thought process normal, cooperative and affect normal Appearance: appropriate Weight / BMI Weight Weight: 192 lb 3.889 oz Body Mass Index (BMI) 37.5 ABG / Lab / Microbiology Data 01/09/23 07:05 01/09/23 07:05 Laboratory: Laboratory Results - last 24 hr 01/08/23 15:18: POC Glucose 199 H 01/08/23 18:51: POC Glucose 115 H 01/08/23 21:15: POC Glucose 194 H 01/08/23 22:20: Troponin I High Sens 33, B-Natriuretic Peptide 379.0 H 01/09/23 03:30: POC Glucose 159 H 01/09/23 06:07: POC Glucose 161 H 01/09/23 07:05: WBC 13.7 H, RBC 4.13 L, Hgb 9.1 L, Hct 34.9 L, MCV 84.5, MCH 22.0 L, MCHC 26.1 L D, RDW Std Deviation 70.7 H, RDW Coeff of Carissa 23.1 H, Plt Count 294, MPV 10.2, Immature Gran % (Auto) 0.700, Neut % (Auto) 73.2 H, Lymph % (Auto) 17.0 L, [place] % (Auto) 5.3, Eos % (Auto) 3.2, Baso % (Auto) 0.6, Absolute Neuts (auto) 10.0 H, Absolute Lymphs (auto) 2.33, Nucleated RBC % 0, Hypochromasia 2+, Anisocytosis 1+, Sodium 142, Potassium 3.4 L, Chloride 104, Carbon Dioxide 37.0 H, Anion Gap 1 L, BUN 17, Creatinine 0.86, Estim Creat Clear Calc 38.72, Est GFR (MDRD) Af Amer 82, Est GFR (MDRD) Non-Af 68, BUN/Creatinine Ratio 19.8, Glucose 161 H, Calcium 8.9 01/09/23 10:13: POC Glucose 228 H Microbiology: Microbiology 01/02/23 14:45 Blood Culture (Wb) - Arm Left Blood Culture - Final No growth in 5 days. 01/02/23 16:09 Blood Culture (Wb) - Anticubital Right Blood Culture - Final Streptococcus alactolyticus 01/02/23 12:35 Urine Catheter - Catheter Urine Culture - Final Citrobacter freundii Proteus mirabilis ABG: ABG 01/08/23 23:08 Specimen Type ART Sample Site L Radial pH 7.48 H Bicarbonate Actual 34.4 H Total CO2 36 Base Excess 11 H O2 Saturation 98 O2 % 2.0 ABG pCO2 45.9 H ABG pO2 96 Rakesh Test Positive O2 Delivery Device Cannula Vent Mode Not entered Radiography Diagnostic Testing: Radiology Impression Chest X-Ray 01/08/23 12:35 IMPRESSION: Increased density in the left lower lobe suggestive of left lower lobe atelectasis and/or infiltrate with blunting of the left costophrenic angle. Electronically Signed: Milo Hughes MD at 13:12 EST , Chest CTA 01/08/23 21:34 IMPRESSION: 1. Poorly organized abscess collection and/or hematoma forming within left upper quadrant of abdomen. Prior examination demonstrated free abdominal air, possibly secondary to recent PEG tube placement and/or gastric perforation. Clinical correlation and close follow-up recommended. 2. Small pleural effusions with left greater than right basilar atelectatic changes. 3. No pulmonary embolus identified. 4. Rim calcified cysts and/or nodules within left lobe of thyroid gland. Follow-up as clinically warranted. Electronically Signed: Nicanor Hester MD at 22:53 EST , D/C Instructions Discharge Diet: - (tube feeds) Weight Bearing Status: Weight bearing as tolerated Call your doctor if you observe: Fever of 101 or Higher, Shortness of breath, Dizziness, Swelling in the ankles, Chest pain and Uncontrolled pain Meaningful Use Info Meaningful Use Diagnoses (Choose all that apply): None applicable Discharge Plan Admission Admit Date/Time: 01/02/23 15:43 Primary Reason for Your Visit: malfunctioning PEG tube Attending Provider: Yolis Madsen Primary Care Provider: Uriel Mac Consulting Providers: Viraj Guillen; Xavier Valenzuela Instructions Patient Instructions: ED Feeding Tube Replacement Discharge Orders/Prescriptions Prescriptions: Continued albuterol sulfate 2.5 MG/3 ML solution for nebulization 2.5 mg inhalation Q2H PRN PRN (Reason: SOB/Wheezing) 0RF amlodipine 2.5 mg tablet 2.5 mg PO DAILY duloxetine 30 mg capsule,delayed release(DR/EC) 60 mg PO DAILY Jevity 1.5 Laureano 0.06 gram-1.5 kcal/mL Liquid 250 ml G-tube 4X/DAY Qty: 0 0RF ondansetron HCl 4 mg tablet 4 mg PO Q6H PRN (Reason: Nausea And Vomiting) guaifenesin 100 mg Tablet 600 mg PO Q12H mineral oil Enema 118 ml AL DAILY PRN (Reason: Constipation) magnesium hydroxide [Milk of Magnesia] 400 mg/5 mL Suspension 30 ml PO DAILY PRN (Reason: Constipation) bisacodyl 10 mg Suppository 10 mg AL DAILY PRN (Reason: Constipation) hydroxyzine HCl 25 mg Tablet 25 mg PO Q8 PRN (Reason: ITCHY RASH ON UPPER AND LOWER EXTREMITIES) estradiol 0.01 % (0.1 mg/gram) cream 1 applic VAGINAL QPM d-mannose 500 mg Capsule 2,000 mg PO DAILY furosemide 40 mg tablet 40 mg PO DAILY acetaminophen 325 mg tablet 650 mg PO Q6H PRN (Reason: PAIN AND FEVER) carbamazepine 200 mg/10 mL suspension 200 mg PO BID mupirocin 2 % Ointment 1 applic topical TID Qty: 0 0RF Protocol: *Topical Application Instructions APPLICATION INSTRUCTIONS: apply to peg site Rx Instructions: Place around PEG site time a total of 7 days nystatin [Nyamyc] 100,000 unit/gram Powder 1 applic topical TID Qty: 0 0RF Protocol: *Topical Application Instructions APPLICATION INSTRUCTIONS: to affected regions Rx Instructions: Placed in affected areas atorvastatin 20 MG tablet 20 mg PO QHS hydralazine 50 MG tablet 50 mg PO TID Rx Instructions: hold for bp less than 100/60 apixaban 2.5 MG tablet 5 mg PO BID amiodarone 100 mg tablet 100 mg PO DAILY gabapentin 800 mg tablet 800 mg PO TID Referrals / Follow Up: Xavier Valenzuela MD [Med Staff - Active Staff] - Within 2 Weeks Uriel Mac MD [Primary Care Provider] - Within 2 Weeks Disposition Disposition (needs filled in before D/C Order can be placed): [facility] Charges/Coding Visit Charges Inpatient E&M: 21000 Disch Hosp >30min
--- NOTE | 2023-01-09 12:18 | CASEMGMT ---
Discharge Planning Discharge orders, signed med list, and transport times sent to [facility]. [facility] will transport patient by cot at 130p. Nursing, SW, and patients son updated. Lakisha Caicedo, Discharge Planning Asst.
--- NOTE | 2023-01-09 12:21 | PHA.DC.MR.R ---
Pharmacy [place] Med Reconciliation Pharmacy Service has performed discharge medication reconciliation for this patient. The patient's discharge medication list was reviewed for discrepancies and discrepancies were resolved. Medications at Discharge Home Medications albuterol sulfate 2.5 mg/3 mL (0.083 %) solution for nebulization 2.5 mg (3 mL) inhalation Q2H PRN PRN SOB/Wheezing 08/12/19 amlodipine 2.5 mg tablet 2.5 mg PO DAILY HTN 11/22/21 duloxetine 30 mg capsule,delayed release 60 mg PO DAILY depression 11/22/21 lactose-reduced food with fiber 0.06 gram-1.5 kcal/mL oral liquid (Jevity 1.5 Laureano) 250 ml G-tube 4X/DAY #0 mL 11/25/21 acetaminophen 325 mg tablet 650 mg PO Q6H PRN PAIN AND FEVER 01/31/22 bisacodyl 10 mg rectal suppository 10 mg LA DAILY PRN Constipation 01/31/22 carbamazepine 200 mg/10 mL oral suspension 200 mg PO BID trigeminal neuralgia 01/31/22 d-mannose 500 mg capsule 2,000 mg PO DAILY preventative for uti 01/31/22 estradiol 0.01% (0.1 mg/gram) vaginal cream 1 applic vaginal QPM UTI 01/31/22 furosemide 40 mg tablet 40 mg PO DAILY chf 01/31/22 guaifenesin 100 mg tablet 600 mg PO Q12H congestion 01/31/22 hydroxyzine HCl 25 mg tablet 25 mg PO Q8 PRN ITCHY RASH ON UPPER AND LOWER EXTREMITIES 01/31/22 magnesium hydroxide 400 mg/5 mL oral suspension (Milk of Magnesia) 30 ml PO DAILY PRN Constipation 01/31/22 mineral oil 118 ml LA DAILY PRN Constipation 01/31/22 ondansetron HCl 4 mg tablet 4 mg PO Q6H PRN Nausea And Vomiting 01/31/22 mupirocin 2 % topical ointment 1 applic topical TID #0 grams 02/03/22 nystatin 100,000 unit/gram topical powder (Nyamyc) 1 applic topical TID #0 grams 02/03/22 apixaban 2.5 mg tablet 5 mg PO BID DVT 05/19/22 atorvastatin 20 mg tablet 20 mg PO QHS cholesterol 05/19/22 hydralazine 50 mg tablet 50 mg PO TID bp 04/14/23 amiodarone 100 mg tablet 100 mg PO DAILY afib 01/08/23 gabapentin 800 mg tablet 800 mg PO TID nerves 01/08/23
[2023-01-09] MEDS: Furosemide 40 MG/4 ML Vial IV (12:39)
--- NOTE | 2023-01-09 13:11 | NURSING ---
report called to Camilla CONTE at [facility]
== END 2023-01-09 13:08 | disposition skilled nursing facility (03) | DRG 326 ==
LOC: ED 15:06 → PCU 15:52 → ICU 01-03 11:17 → PCU 01-05 14:38
PROVIDERS: Internal Medicine; Surgery; Admitting Provider Hospitalist; Emergency Provider Emergency Medicine; PCP Family Medicine; Visit Provider Student in an Organized Health Care Education/Training Program
PROC: 0DB64ZZ Excision of Stomach, Percutaneous Endoscopic Approach (ICD-10-PCS; CPT 43325; principal; 2023-01-03 07:40)
DX: K94.22 Gastrostomy infection (principal); A41.59 Other Gram-negative sepsis; A41.89 Other specified sepsis; G93.41 Metabolic encephalopathy; I50.32 Chronic diastolic (congestive) heart failure; T85.598A Other mechanical complication of other gastrointestinal prosthetic devices, implants and grafts, initial encounter; N39.0 Urinary tract infection, site not specified; K66.8 Other specified disorders of peritoneum; I48.0 Paroxysmal atrial fibrillation; G35 Multiple sclerosis; E11.51 Type 2 diabetes mellitus with diabetic peripheral angiopathy without gangrene; F03.90 Unspecified dementia, unspecified severity, without behavioral disturbance, psychotic disturbance, mood disturbance, and anxiety; I11.0 Hypertensive heart disease with heart failure; K94.23 Gastrostomy malfunction; K94.21 Gastrostomy hemorrhage; E78.00 Pure hypercholesterolemia, unspecified; E87.6 Hypokalemia; I25.10 Atherosclerotic heart disease of native coronary artery without angina pectoris; Y73.8 Miscellaneous gastroenterology and urology devices associated with adverse incidents, not elsewhere classified; R13.12 Dysphagia, oropharyngeal phase; Z66 Do not resuscitate; Z88.0 Allergy status to penicillin; Z79.01 Long term (current) use of anticoagulants; Z79.899 Other long term (current) drug therapy; Z87.891 Personal history of nicotine dependence; Z95.1 Presence of aortocoronary bypass graft; Z95.5 Presence of coronary angioplasty implant and graft
CPT/HCPCS: 36415; 36600; 70450; 71045; 71275; 74177; 74230; 80048; 81001; 82803; 82962; 83036; 83605; 83735; 83880; 84484; 85014; 85018; 85025; 85027; 85379; 85610; 85730; 86644; 86850; 86900; 86901; 86920; 86965; 87040; 87077; 87086; 87088; 87186; 88305; 88307; 88342; 92507; 92526; 92610; 92611; 93005; 94640; 94668; 94762; 97802; 97803; 99285; J7030; J7040; J7050; P9035; P9040; Q9967; A4216; J1940; J2405

== ENCOUNTER → 2023-08-20 | Outpatient (CLI) | payer MEDICARE, MEDICAID, SELFPAY ==
[2023-08-20 12:30] LABS: Vitamin B12 405 pg/mL (211-911)
[2023-08-20 12:54] LABS: AST(SGOT) 18 U/L (15-37); Alanine Aminotransfer ALT/SGPT 13 U/L (13-56); Albumin, Serum 2.5 g/dL (3.2-5.0); Alkaline Phosphatase 111 U/L (45-117); Bilirubin, Direct 0.11 mg/dL (0.00-0.30); Cholesterol 158 mg/dL (200); Ferritin 19 ng/mL (8-252); Globulin 4.2 g/dL (2.2-4.2); High Density Lipoprotein 56 mg/dL; Iron 24 ug/dL (50-170); Protein, Total 6.7 g/dL (6.4-8.2); Thyroid Stim Hormone (TSH) 2.16 uIU/mL (0.358-3.74); Triglycerides 159 mg/dL; Very Low Density Lipoprotein 32 mg/dL (5-40)
[2023-08-22 12:15] LABS: Vitamin D 1,25-Dihydroxy 35.4 pg/mL (24.8-81.5)
[2023-08-22 19:07] LABS: Free Kappa Light Chains 54.7 mg/L (3.3-19.4); Free Lambda Light Chains 40.4 mg/L (5.7-26.3)
== END | disposition home or self-care (01) ==
PROVIDERS: PCP Family Medicine; Referring Provider Psychiatry & Neurology Neurology; Visit Provider Psychiatry & Neurology Neurology
DX: G35 Multiple sclerosis (principal); F03.90 Unspecified dementia, unspecified severity, without behavioral disturbance, psychotic disturbance, mood disturbance, and anxiety; E11.9 Type 2 diabetes mellitus without complications; Z86.2 Personal history of diseases of the blood and blood-forming organs and certain disorders involving the immune mechanism
CPT/HCPCS: 36415; 80061; 80076; 82607; 82652; 82728; 82746; 83540; 83883; 84425; 84443

== ENCOUNTER → 2023-08-21 | Outpatient (CLI) | payer MEDICARE, MEDICAID, SELFPAY ==
--- NOTE | 2023-08-21 09:49 | CDU_ITS ---
Reason For Study: Lt Carotid Bruit Rt. Velocities/BP Lt. Velocities/BP Prox CCA 88.3/8.0 cm/sec. Prox CCA 99.7/8.4 cm/sec. Mid CCA 69.6/10.2 cm/sec. Mid CCA 101.6/6.6 cm/sec. Dist CCA 67.4/11.3 cm/sec. Dist CCA 92.4/10.2 cm/sec. Prox ICA 96.1/21.2 cm/sec. Prox ICA 123.5/17.5 cm/sec. Mid ICA 137.7/19.4 cm/sec. Mid ICA 160.0/16.5 cm/sec. Dist ICA 121.6/12.1 cm/sec. Dist ICA 95.8/13.1 cm/sec. Rt. ICA/CCA = 2.0. Lt. ICA/CCA = 1.6. Prox ECA 183.0/6.7 cm/sec. Prox ECA 108.9/0.0 cm/sec. Rt. Vert. 28.5/4.3 cm/sec. Lt. Vert. 81.8/6.9 cm/sec. Right Extracranial There is intimal thickening but no significant atherosclerotic plaque noted in the right common carotid artery. There is heterogeneous, irregular atherosclerotic plaque noted in the right internal carotid artery. There is heterogeneous, irregular atherosclerotic plaque noted in the right external carotid artery. Antegrade flow is noted in the right vertebral artery. Left Extracranial There is homogeneous, smooth atherosclerotic plaque noted in the left common carotid artery. There is heterogeneous, irregular atherosclerotic plaque noted in the left internal carotid artery. There is heterogeneous, irregular atherosclerotic plaque noted in the left external carotid artery. Antegrade flow is noted in the left vertebral artery. Procedure Carotid Duplex 22436. This is a Carotid Duplex examination using B-mode, color flow and specral Doppler. The exam was diagnostic. Exam performed in department. VL/Carotid Duplex Ultrasound Interpretation Summary Moderate (50-69%) stenosis right extracranial internal carotid. Moderate (50-69%) stenosis left extracranial internal carotid. Patent and antegrade vertebrals bilaterally. Ordering Physician: Titi Card Referring Physician: Uriel Mac Performed By: Keyshawn Trujillo RVT and Student
== END | disposition home or self-care (01) ==
LOC: CVS 09:44
PROVIDERS: PCP Family Medicine; Referring Provider Psychiatry & Neurology Neurology; Visit Provider Psychiatry & Neurology Neurology
DX: R09.89 Other specified symptoms and signs involving the circulatory and respiratory systems (principal)
CPT/HCPCS: 93880

== ENCOUNTER → 2023-09-03 | Outpatient (CLI) | payer MEDICARE, MEDICAID, SELFPAY ==
--- NOTE | 2023-09-03 15:05 | MRI_ITS ---
STUDY: MRI CERVICAL SPINE WITH AND WITHOUT CONTRAST REASON FOR EXAM: Female, 78 years old. Multiple sclerosis; patient is nonambulatory, best possible unable to hold still TECHNIQUE: Standardized fat and water weighted pulse sequences were obtained in the sagittal and axial following administration of IV 16ML CLARISCAN. Mild to moderate motion artifact is present limiting evaluation. COMPARISON: None FINDINGS: Normal foramen magnum and brainstem-cervical cord junction. Normal craniovertebral junction. Normal anterior atlantoaxial articulation. Normal odontoid process. There is straightening of the normal cervical lordosis. No marrow edema or fracture or compression deformity is present. Postcontrast images: Diffusely enhancing ovoid plaque in the central aspect of the cervical cord at the C4 level measures 1.39 cm in diameter. Patchy demyelinating plaques and enhancement is also demonstrated at the C6-T1 levels. Bright signal in the cord is also present from C1-C2 down the C6. Reactive endplate enhancement at C4-C5, C5-C6, and C6-C7. C2-3: Normal endplates. Diffuse disc desiccation. Normal disc height and morphology. Normal central canal and intervertebral neural foramina. C3-4: Normal endplates. Diffuse disc desiccation with mild disc space narrowing but no bulge or herniation of the disc. Moderate left foraminal stenosis with nerve root compression due to combined uncovertebral and facet joint hypertrophy. Mild right foraminal stenosis. Mild intrinsic central canal stenosis. C4-5: Diffuse disc desiccation with moderate disc space narrowing and a diffuse disc bulge causing compression anterior aspect of the cord and moderate central canal stenosis. Compressive myelomalacia is demonstrated at this level. Severe bilateral foraminal stenosis with nerve root compression due to uncovertebral facet joint hypertrophy. C5-6: Normal endplates. Moderate disc space narrowing and diffuse disc desiccation. No significant annular bulging or herniation of the disc Normal central canal and intervertebral neural foramina. C6-7: Severe disc space narrowing with a mild diffuse disc spur complex. Diffuse disc desiccation and liquefaction. No evidence of discitis or vertebral osteomyelitis. Small posterior Schmorl''s node. Moderate bilateral foraminal stenosis with nerve root compression due to uncovertebral and facet joint hypertrophy. Mild central canal stenosis. C7-T1: Normal endplates. Diffuse disc desiccation with mild posterior annular bulging and mild central canal stenosis. Normal intervertebral neural foramina. Normal cervical cord. There is no demonstrated cervical cord syrinx cavity. Normal visualized soft tissue structures. MRI/Spine Cervical W/WO Contrast IMPRESSION: 1. Multilevel degenerative changes, as described above. 2. Postcontrast images: Diffusely enhancing ovoid plaque in the central aspect of the cervical cord at the C4 level measures 1.39 cm in diameter. Patchy demyelinating plaques and enhancement is also demonstrated at the C6-T1 levels. Bright signal in the cord is also present from C1-C2 down the C6. Electronically Signed: Tavares Cali MD at 11:30 EDT ,
--- NOTE | 2023-09-03 15:05 | MRI_ITS ---
STUDY: MRI BRAIN WITH AND WITHOUT CONTRAST REASON FOR EXAM: Female, 78 years old. dementia; right trigeminal neuroalgia; MS, best possible TECHNIQUE: Standardized multiplanar fat and water weighted pulse sequences were obtained. IV 16ML CLARISCAN was administered for the contrast portion of the examination. COMPARISON: MRI of the brain dated August 03, 2021 FINDINGS: There is severe cerebral atrophy with widening of the extra-axial spaces and ventricular dilatation. There are multiple confluent white matter hyperintensities, distributed throughout the deep white matter tracts of the cerebral hemispheres, consistent with severe chronic white matter ischemic changes. There is no evidence for recent intracranial ischemia or other cause of cytotoxic edema on diffusion weighted imaging (DWI). Normal T2* images of the brain without demonstrated susceptibility artifact. There is no demonstrated hemosiderin stain. There are no discrete ovoid demyelinating plaques separate from the severe chronic ischemic signal throughout the bilateral periventricular/hemisphere regions. Postcontrast images: There are no visualized enhancing lesions of the brain parenchyma or abnormal thickening or enhancement of the meninges or dura. No skull lesions are seen. Normal bilateral basal ganglia. Normal thalami. There is no extra-axial fluid accumulation. Normal flow voids within the major intracranial circulation suggesting patency by spin echo criteria. Normal venous enhancement. There is no enhancing intra-axial or extra-axial abnormality. Normal sella turcica, pituitary gland, infundibular stalk, optic chiasm and hypothalamus. Normal tectal plate and pineal gland. There are chronic white matter ischemic changes of the ammon. The midbrain and medulla are otherwise normal. Normal cerebellum. Normal basal cisterns. Normal bilateral temporal bones. Normal bilateral internal auditory canals. No demonstrated orbital abnormality, within the constraints of a routine brain study. Normal visualized paranasal sinuses. Normal calvarium and skull base. Normal visualized soft tissue structures. Normal visualized upper cervical spine. MRI/Brain W/WO Contrast IMPRESSION: 1. Involutional and severe chronic ischemic changes of the brain, as described above. 2. Postcontrast images: There are no visualized enhancing lesions of the brain parenchyma or abnormal thickening or enhancement of the meninges or dura. No skull lesions are seen. Electronically Signed: Tavares Cali MD at 10:28 EDT ,
[2023-09-03 15:45] LABS: CREATININE FINGERSTICK < 1.0 mg/dL (0.55-1.02); EGFR FINGERSTICK > 60.0000 mL/min (>60)
== END | disposition home or self-care (01) ==
LOC: MRI 14:56
PROVIDERS: PCP Family Medicine; Referring Provider Psychiatry & Neurology Neurology; Visit Provider Psychiatry & Neurology Neurology
DX: Z01.812 Encounter for preprocedural laboratory examination (principal); G35 Multiple sclerosis; F03.90 Unspecified dementia, unspecified severity, without behavioral disturbance, psychotic disturbance, mood disturbance, and anxiety; G50.0 Trigeminal neuralgia
CPT/HCPCS: 70553; 72156; A9575

== ENCOUNTER → 2023-09-17 | Outpatient (CLI) | payer MEDICARE, MEDICAID, SELFPAY ==
[2023-09-17 12:01] LABS: Carbamazepine (Tegretol) 8.8 ug/mL (4.0-12.0)
== END | disposition home or self-care (01) ==
PROVIDERS: PCP Family Medicine; Referring Provider Psychiatry & Neurology Neurology; Visit Provider Psychiatry & Neurology Neurology
DX: G50.0 Trigeminal neuralgia (principal)
CPT/HCPCS: 36415; 80156

== ENCOUNTER → 2023-10-31 | Outpatient (CLI) | payer MEDICARE, MEDICAID, SELFPAY ==
[2023-10-31 15:44] LABS: Absolute Lymphocyte Count 2.82 X10^3/uL (0.83-4.51); Absolute Neutrophil Count 9.6 X10^3/uL (2.0-7.7); Basophil# 0.05 X10^3/uL; Basophil% 0.4 % (0-1); Eosinophil# 0.27 X10^3/uL; Eosinophils% 1.9 % (0-5); Hematocrit 37.9 % (37-47); Hemoglobin 10.5 g/dL (12.0-15.0); Lymphocyte # 2.82 X10^3/ul (0.83-4.51); Lymphocyte % 20.4 % (19-41); Mean Corp Hgb Conc 27.7 g/dL (32-36); Mean Corpuscular Hgb 22.1 pg (27.0-32.0); Mean Corpuscular Volume 79.8 fL (81-99); Monocyte# 1.01 X10^3/uL; Monocyte% 7.3 % (0-10); NRBC Flagged by Analyzer 0 % (0-5); Neutrophil # 9.63 X10^3/uL (2.7-7.7); Neutrophil % 69.5 % (47-70); Platelet Count 359 K/mm3 (150-450); RBC Distribution Width CV 16.9 % (11.6-14.6); RBC Distribution Width SD 48.1 fl (35.1-43.9); Red Blood Count 4.75 M/mm3 (4.2-5.4); White Blood Count 13.9 K/mm3 (4.4-11.0)
[2023-10-31 16:29] LABS: ALB/GLOB Ratio 0.6 RATIO (0.9-2.4); AST(SGOT) 11 U/L (15-37); Alanine Aminotransfer ALT/SGPT 15 U/L (13-56); Albumin, Serum 2.5 g/dL (3.2-5.0); Alkaline Phosphatase 108 U/L (45-117); Anion Gap 6 (5-15); BUN 11 mg/dL (7-18); Calcium,Total 9.1 mg/dL (8.5-10.1); Chloride 102 mmol/L (98-107); Creatinine, Serum 0.85 mg/dL (0.55-1.02); EST Glomerular Filtration Rate 69 mL/min (>60); Est Glom Filt Rate - Afr Amer 83 mL/min (>60); Glucose 142 mg/dL (74-106); Potassium 3.2 mmol/L (3.5-5.1); Protein, Total 6.5 g/dL (6.4-8.2); Sodium Level 141 mmol/L (136-145)
== END | disposition home or self-care (01) ==
LOC: LAB 14:44
PROVIDERS: PCP Family Medicine
DX: D64.9 Anemia, unspecified (principal); Z93.1 Gastrostomy status
CPT/HCPCS: 36415; 80053; 85025

== ENCOUNTER 2024-03-18 13:00 | Outpatient (RCR) | payer MEDICARE, MEDICAID, SELFPAY ==
--- NOTE | 2024-02-19 16:43 | HP.PTEVAL ---
Patient's Visit Information Visit Information Visit Information: SINA VIZCARRA is a 79 year old F referred to Physical Therapy by Dr. Titi Card MD with a diagnosis of polyneuropathy, MS, physical deconditioning. Date of Evaluation: 02/18/24 Physical Therapist: Amish Ward DPT Visit Plan Frequency: 2x /Week Duration: 6 Weeks Plan: 1) BLE strengthening, progressing HEP as tolerated. 2) standing, progressing time standing then to decreased assistance 3) chair transfers 4) gait in // bars 5) L calf stretching Pt. is significantly debilitated will need a lot of assistance with standing exercises. Progress as able. Subjective Subjective: Pt. is here today for her initial evaluation with diagnosis of polyneuropathy, MS, physical deconditioning. Pt. was diagnosed with MS many years ago. He recently ~/.5 years ago ended up at SNF ([facility]) due to frequent falls. pt. reports living currently at a local retirement. She did not enjoy the PT at her facility and wanted to do therapy else where. Pt. reports not walking for ~13 years, but wants to start attempting now. Pt. is in a wheel chair. She uses a angeline lift to transfer from bed to chair and back. She does not stand. she reports that she could, but the retirement never lets her. Pt. is on supplemental O2 as well, currently 2 L. Pt. reports if she can walk with a walker she could go nicole.e Pain Buttock: Pain Intensity (Out of 10): 9 Pain Intensity Range: 7 and 10 Objective Objective: posture: Pt. is able to sit at edge of chair unsupported without LOB. Standing: heavy use of FWW, retro lean, B knee hyper extension, wide AUR[place]A. MOD A to stand at this point in time. PALPATION: Pt. reports no pain with palpation throughout BLEs. ROM: PT. has fairly normal ROM, but does have limited L DF lacking -2 to netural (calf tigthness) MMT: L knee: ext 15.6#, flexion 14.9#; ankle DF 0#, PF 11.7# R LLE: Knee: ext 25.4#, flexion 22.5#; ankle PF 28.4#, DF 4# Transfer: Pt. was able to complete a stand pivot transfer with modA x1 and x1 of JAYY for safety. GAIT: Pt. ambulated 3 feet in // bars x2 with MODA to compplete. Balance/Special Test Scores Lower Extremity Functional Score: 19 Goals Goal 1:: LTG: Pt. to be I with HEP. Goal Time Frame: 4-6 Weeks Goal 2:: LTG: Pt. to have increased BLE strength by 10# throughout in preparation for transfers and gait. Goal Time Frame: 4-6 Weeks Goal 3:: LTG: Pt. to be able to stand with use of FWW for 1 minute allowing for increased tolerance to transfers. Goal Time Frame: 4-6 Weeks Goal 4:: LTG: Pt. to complete sit to stand from wheel chair with BUE assistance x10. Goal Time Frame: 4-6 Weeks Goal 5:: LTG: Pt. to be able to walk 10' in // bars with min A with good BLE stability. Goal Time Frame: 4-6 Weeks Rehabilitation Potential Physical Therapy Diagnosis: Pt. has signs and symptoms consistent with polyneuropathy, MS, physical deconditioning. Pt. has marked weakness in BLEs, marked overall difficulty with transfers and mobility. She would benefit from PT to work on initially improving her transfers then work on progressing to gait. Rehabilitation Potential: Fair Anticipated Interventions Patient/Client Instruction: Educate patient on: Condition, Plan of Care, Risk Factors and Benefits of Fitness Program For the Purpose of:: To improve decision making, To facilitate caregiver knowledge, To improve self management, To prevent re-injury, To improve ability to perform tasks related to life management and To improve tolerance to ADL's Therapeutic Exercise to Include: Strength training, Power training, Balance training, Postural training, Flexibilty training, Passive ROM and Active ROM For the Purpose of:: To decrease pain, To increase ROM, To increase oxygenation perfusion, To decrease level of supervision to perform tasks, To improve gait and locomotor functions and To improve health of tissue Text: Thank you for the opportunity to evaluate your patient. For Medicare and Medicare HMO plans, please review the plan of care and approve it. It will need to be FAXED BACK to us at [phone] for Medicare purposes. For Medicare only, by signing this I certify the plan of care. Please let me know if there are questions or concerns regarding this plan of care. Physician Signature: Date:
== END 2024-03-18 19:00 | disposition home or self-care (01) ==
LOC: PT 13:00
PROVIDERS: PCP Family Medicine; Referring Provider Psychiatry & Neurology Neurology; Visit Provider Psychiatry & Neurology Neurology
DX: R53.81 Other malaise (principal); G35 Multiple sclerosis; G62.9 Polyneuropathy, unspecified
CPT/HCPCS: 97110; 97161

== ENCOUNTER → 2024-08-05 | Outpatient (CLI) | payer MEDICARE, MEDICAID, SELFPAY ==
[2024-08-05 18:20] LABS: AST(SGOT) 23 U/L (<=31); Alanine Aminotransfer ALT/SGPT 12 U/L (<=34); Albumin, Serum 3.1 g/dL (3.4-4.8); Alkaline Phosphatase 97 U/L (35-104); Anion Gap 11 (5-15); BUN 16 mg/dL (4-19); BUN/Creat Ratio 14.8 RATIO (10-20); Calcium,Total 9.2 mg/dL (7.6-11.0); Carbon Dioxide 30.1 mmol/L (21.0-32.0); Chloride 101 mmol/L (98-108); Globulin 3.0 g/dL (2.2-4.2); Glucose 118 mg/dL (70-99); Magnesium 2.0 mg/dL (1.5-2.2); Potassium 3.7 mmol/L (3.3-5.1)
[2024-08-05 18:24] LABS: Carbamazepine (Tegretol) 9.2 ug/mL (4.0-12.0)
[2024-08-05 18:30] LABS: Hematocrit 44.4 % (37-47); Hemoglobin 14.0 g/dL (12.0-15.0); Mean Corp Hgb Conc 31.5 g/dL (32-36); Mean Corpuscular Volume 96.1 fL (81-99); Mean Platelet Vol. 10.7 fl (6.2-12.0); Platelet Count 265 K/mm3 (150-450); RBC Distribution Width CV 13.3 % (11.6-14.6); RBC Distribution Width SD 47.1 fl (35.1-43.9); Red Blood Count 4.62 M/mm3 (4.2-5.4); White Blood Count 11.6 K/mm3 (4.4-11.0)
== END | disposition home or self-care (01) ==
LOC: MTLAB 14:51
PROVIDERS: PCP Family Medicine; Referring Provider Psychiatry & Neurology Neurology; Visit Provider Psychiatry & Neurology Neurology
DX: G50.0 Trigeminal neuralgia (principal); G35 Multiple sclerosis
CPT/HCPCS: 36415; 80053; 80156; 83735; 85027

== ENCOUNTER 2024-09-06 08:24 | Inpatient (IN) | payer MEDICARE, MEDICAID, SELFPAY ==
[2024-09-06] VITALS (14 sets, daily range): BP systolic 123–158; BP diastolic 43–141; PULSE 74–90; RESP 16–32; TEMP 36.6–37.2; O2SAT 94–100; BMI 34.4; BMI 33.2
[2024-09-06 09:13] LABS: Allen Test Positive; Base Excess 19 mmol/L (-2 to +2); FI02 4.0; PO2 130 mmHG (75-100); SITE L Brach; SO2 99 % (95-99)
[2024-09-06] MEDS: 0.9% Normal Saline (1000mL) 1,000 ML 999 ML IV (09:15)
[2024-09-06 09:17] LABS: Hematocrit 48.2 % (37-47); Hemoglobin 15.0 g/dL (12.0-15.0); Immature Granulocytes Count 0.090 X10^3/uL (0.0-0.0); Mean Corp Hgb Conc 31.1 g/dL (32-36); Mean Corpuscular Volume 96.6 fL (81-99); Mean Platelet Vol. 10.5 fl (6.2-12.0); NRBC Flagged by Analyzer 0.1 % (0-5); Platelet Count 174 K/mm3 (150-450); RBC Distribution Width CV 13.5 % (11.6-14.6); RBC Distribution Width SD 48.1 fl (35.1-43.9); Red Blood Count 4.99 M/mm3 (4.2-5.4); White Blood Count 15.6 K/mm3 (4.4-11.0)
[2024-09-06 09:26] LABS: Partial Thromboplast Time 26.5 Seconds (24.1-36.2); Prothrombin Time (Protime)PT. 14.2 SECONDS (11.7-14.9)
[2024-09-06 10:14] LABS: AST(SGOT) 23 U/L (<=31); Alanine Aminotransfer ALT/SGPT 15 U/L (<=34); Albumin, Serum 3.4 g/dL (3.4-4.8); Alkaline Phosphatase 97 U/L (35-104); Anion Gap 9 (5-15); BUN 15 mg/dL (4-19); BUN/Creat Ratio 16.4 RATIO (10-20); Calcium,Total 9.5 mg/dL (7.6-11.0); Carbon Dioxide 34.5 mmol/L (21.0-32.0); Chloride 100 mmol/L (98-108); Estimated Creatinine Clearance 45.69 ml/min (50-250); Globulin 3.3 g/dL (2.2-4.2); Glucose 119 mg/dL (70-99); Potassium 4.4 mmol/L (3.3-5.1)
[2024-09-06 10:49] LABS: Mucous, Urine 0 SEEN /hpf (<or=2+); Red Blood Cells-Urine 0 SEEN /hpf (0-5); Squamous Epithelial Cells - UA 0 SEEN /hpf (5-10)
[2024-09-06 10:55] LABS: Color, Urine Yellow (Yellow); Glucose, Dipstick Normal (Normal); Ketone-Dipstick Negative (Negative); Leukocyte Esterase-Dipstick 25 /ul (Negative); Nitrite-Dipstick Negative (Negative); Occult Blood-Urine 50 /ul (Negative); Protein-Dipstick 100 mg/dl (Negative); Specific Gravity, Urine 1.015 (1.002-1.030); Urine Bilirubin Dipstick Negative (Negative)
[2024-09-06] MEDS: Aztreonam 2 GM 2 GM in 0.9% Normal Saline (100mL MB+) 100 ML IV (12:08)
[2024-09-06 12:46] LABS: Ammonia 36.6 umol/L (11-51)
[2024-09-06] MEDS: Meropenem 1 GM in 0.9% Normal Saline (100mL MB+) 100 ML IV ×2 (15:44→22:22)
[2024-09-07] VITALS (14 sets, daily range): BP systolic 117–145; BP diastolic 50–75; PULSE 71–97; RESP 16–27; TEMP 36.6–37.8; O2SAT 89–100; BMI 34.3
[2024-09-07 06:36] LABS: Hematocrit 41.2 % (37-47); Hemoglobin 12.8 g/dL (12.0-15.0); Immature Granulocytes Count 0.070 X10^3/uL (0.0-0.0); Mean Corp Hgb Conc 31.1 g/dL (32-36); Mean Corpuscular Volume 98.3 fL (81-99); Mean Platelet Vol. 10.3 fl (6.2-12.0); NRBC Flagged by Analyzer 0 % (0-5); Platelet Count 166 K/mm3 (150-450); RBC Distribution Width CV 13.9 % (11.6-14.6); RBC Distribution Width SD 50.3 fl (35.1-43.9); Red Blood Count 4.19 M/mm3 (4.2-5.4); White Blood Count 11.9 K/mm3 (4.4-11.0)
[2024-09-07 07:10] LABS: Magnesium 1.9 mg/dL (1.5-2.2)
[2024-09-07 07:14] LABS: AST(SGOT) 23 U/L (<=31); Alanine Aminotransfer ALT/SGPT 9 U/L (<=34); Albumin, Serum 2.9 g/dL (3.4-4.8); Alkaline Phosphatase 81 U/L (35-104); Anion Gap 11 (5-15); BUN 19 mg/dL (4-19); BUN/Creat Ratio 18.4 RATIO (10-20); Calcium,Total 8.5 mg/dL (7.6-11.0); Carbon Dioxide 28.9 mmol/L (21.0-32.0); Chloride 103 mmol/L (98-108); Estimated Creatinine Clearance 41.10 ml/min (50-250); Globulin 2.5 g/dL (2.2-4.2); Glucose 112 mg/dL (70-99); Potassium 3.3 mmol/L (3.3-5.1)
[2024-09-07] MEDS: Azithromycin 500 MG in 0.9% Normal Saline (250mL Bag) 250 ML 255 MG IV (10:48)
[2024-09-07] MEDS: Cholecalciferol (VIT D3) 25 MCG TABLET (1,000 UNITS) 50 MCG PO (10:49)
[2024-09-07] MEDS: Meropenem 1 GM in 0.9% Normal Saline (100mL MB+) 100 ML IV ×2 (12:30→22:06)
[2024-09-07] MEDS: MELATONIN 3 MG TABLET PO (22:18)
[2024-09-08] VITALS (22 sets, daily range): BP systolic 112–138; BP diastolic 42–106; PULSE 64–81; RESP 19–26; TEMP 36.5–37.7; O2SAT 85–100; BMI 34.3
[2024-09-08 02:02] LABS: Allen Test Positive; Base Excess 10 mmol/L (-2 to +2); FI02 15.0; PO2 208 mmHG (75-100); SITE R Radial; SO2 100 % (95-99)
[2024-09-08 06:57] LABS: Hematocrit 44.6 % (37-47); Hemoglobin 12.6 g/dL (12.0-15.0); Immature Granulocytes Count 0.020 X10^3/uL (0.0-0.0); Mean Corp Hgb Conc 28.3 g/dL (32-36); Mean Corpuscular Volume 106.7 fL (81-99); Mean Platelet Vol. 11.0 fl (6.2-12.0); NRBC Flagged by Analyzer 0 % (0-5); Platelet Count 125 K/mm3 (150-450); RBC Distribution Width CV 14.1 % (11.6-14.6); RBC Distribution Width SD 55.3 fl (35.1-43.9); Red Blood Count 4.18 M/mm3 (4.2-5.4); White Blood Count 7.8 K/mm3 (4.4-11.0)
[2024-09-08 07:23] LABS: Anion Gap 9 (5-15); BUN 21 mg/dL (4-19); BUN/Creat Ratio 24.6 RATIO (10-20); Calcium,Total 8.6 mg/dL (7.6-11.0); Carbon Dioxide 27.0 mmol/L (21.0-32.0); Chloride 105 mmol/L (98-108); Estimated Creatinine Clearance 48.22 ml/min (50-250); Glucose 89 mg/dL (70-99); Magnesium 2.3 mg/dL (1.5-2.2); Potassium 3.9 mmol/L (3.3-5.1)
[2024-09-08] MEDS: Azithromycin 500 MG in 0.9% Normal Saline (250mL Bag) 250 ML 255 MG IV (09:15)
[2024-09-08] MEDS: Meropenem 1 GM in 0.9% Normal Saline (100mL MB+) 100 ML IV ×2 (15:11→22:24)
[2024-09-09] VITALS (15 sets, daily range): BP systolic 132–145; BP diastolic 47–89; PULSE 72–87; RESP 20–24; TEMP 36.8–37.4; O2SAT 86–98; BMI 34.2
[2024-09-09 07:05] LABS: Hematocrit 39.2 % (37-47); Hemoglobin 12.2 g/dL (12.0-15.0); Immature Granulocytes Count 0.030 X10^3/uL (0.0-0.0); Mean Corp Hgb Conc 31.1 g/dL (32-36); Mean Corpuscular Volume 98.5 fL (81-99); Mean Platelet Vol. 11.0 fl (6.2-12.0); NRBC Flagged by Analyzer 0 % (0-5); Platelet Count 152 K/mm3 (150-450); RBC Distribution Width CV 13.9 % (11.6-14.6); RBC Distribution Width SD 50.0 fl (35.1-43.9); Red Blood Count 3.98 M/mm3 (4.2-5.4); White Blood Count 6.9 K/mm3 (4.4-11.0)
[2024-09-09 07:12] LABS: Anion Gap 8 (5-15); BUN 18 mg/dL (4-19); BUN/Creat Ratio 24.1 RATIO (10-20); Calcium,Total 8.7 mg/dL (7.6-11.0); Carbon Dioxide 31.0 mmol/L (21.0-32.0); Chloride 106 mmol/L (98-108); Estimated Creatinine Clearance 52.33 ml/min (50-250); Glucose 103 mg/dL (70-99); Potassium 3.6 mmol/L (3.3-5.1)
[2024-09-09] MEDS: Azithromycin 500 MG in 0.9% Normal Saline (250mL Bag) 250 ML 255 MG IV (08:12)
[2024-09-09] MEDS: Cholecalciferol (VIT D3) 25 MCG TABLET (1,000 UNITS) 50 MCG PO (11:48)
[2024-09-09] MEDS: Meropenem 1 GM in 0.9% Normal Saline (100mL MB+) 100 ML IV ×2 (14:27→21:17)
[2024-09-10] VITALS (13 sets, daily range): BP systolic 139–162; BP diastolic 43–56; PULSE 67–90; RESP 15–26; TEMP 36.4–36.8; O2SAT 82–99; BMI 34.0
[2024-09-10] MEDS: Meropenem 1 GM in 0.9% Normal Saline (100mL MB+) 100 ML IV ×3 (05:06→23:07)
[2024-09-10 05:36] LABS: Hematocrit 39.0 % (37-47); Hemoglobin 12.1 g/dL (12.0-15.0); Immature Granulocytes Count 0.010 X10^3/uL (0.0-0.0); Mean Corp Hgb Conc 31.0 g/dL (32-36); Mean Corpuscular Volume 98.2 fL (81-99); Mean Platelet Vol. 10.8 fl (6.2-12.0); NRBC Flagged by Analyzer 0 % (0-5); Platelet Count 144 K/mm3 (150-450); RBC Distribution Width CV 13.7 % (11.6-14.6); RBC Distribution Width SD 49.8 fl (35.1-43.9); Red Blood Count 3.97 M/mm3 (4.2-5.4); White Blood Count 5.7 K/mm3 (4.4-11.0)
[2024-09-10 06:30] LABS: Anion Gap 11 (5-15); BUN 15 mg/dL (4-19); BUN/Creat Ratio 21.5 RATIO (10-20); Calcium,Total 8.7 mg/dL (7.6-11.0); Carbon Dioxide 31.5 mmol/L (21.0-32.0); Chloride 104 mmol/L (98-108); Estimated Creatinine Clearance 52.33 ml/min (50-250); Glucose 86 mg/dL (70-99); Potassium 3.6 mmol/L (3.3-5.1)
[2024-09-10] MEDS: Cholecalciferol (VIT D3) 25 MCG TABLET (1,000 UNITS) 50 MCG PO (09:16)
[2024-09-10] MEDS: Azithromycin 500 MG in 0.9% Normal Saline (250mL Bag) 250 ML 255 MG IV (09:27)
[2024-09-10] MEDS: Sodium Chloride 0.65% 1 SPRAY SPRAY.BTL 2 SPRAY NASAL (12:32)
[2024-09-10] MEDS: Albuterol 2.5 MG/3 ML VIAL.NEB. INHALATION (12:58)
[2024-09-10] MEDS: 0.9% Saline Lock 10 ML Syringe IV (15:17)
[2024-09-10] MEDS: 0.9% Normal Saline (250mL Bag) 250 ML 15 ML IV (15:18)
[2024-09-10] MEDS: Dextrose 5%-Water (1000mL Bag) 1,000 ML 75 ML IV (18:05)
[2024-09-11] VITALS (16 sets, daily range): BP systolic 138–167; BP diastolic 50–71; PULSE 67–97; RESP 14–30; TEMP 36.3–37.1; O2SAT 93–97; BMI 28.4
[2024-09-11] MEDS: Meropenem 1 GM in 0.9% Normal Saline (100mL MB+) 100 ML IV ×3 (05:05→22:03)
[2024-09-11 06:22] LABS: Hematocrit 40.8 % (37-47); Hemoglobin 12.3 g/dL (12.0-15.0); Immature Granulocytes Count 0.030 X10^3/uL (0.0-0.0); Mean Corp Hgb Conc 30.1 g/dL (32-36); Mean Corpuscular Volume 99.8 fL (81-99); Mean Platelet Vol. 10.8 fl (6.2-12.0); NRBC Flagged by Analyzer 0 % (0-5); Platelet Count 161 K/mm3 (150-450); RBC Distribution Width CV 13.4 % (11.6-14.6); RBC Distribution Width SD 49.3 fl (35.1-43.9); Red Blood Count 4.09 M/mm3 (4.2-5.4); White Blood Count 7.6 K/mm3 (4.4-11.0)
[2024-09-11 07:07] LABS: Anion Gap 12 (5-15); BUN 13 mg/dL (4-19); BUN/Creat Ratio 19.3 RATIO (10-20); Calcium,Total 8.8 mg/dL (7.6-11.0); Carbon Dioxide 28.0 mmol/L (21.0-32.0); Chloride 103 mmol/L (98-108); Estimated Creatinine Clearance 47.58 ml/min (50-250); Glucose 112 mg/dL (70-99); Potassium 3.8 mmol/L (3.3-5.1)
[2024-09-11] MEDS: Albuterol 2.5 MG/3 ML VIAL.NEB. INHALATION (09:35)
[2024-09-11] MEDS: 0.9% Saline Lock 10 ML Syringe IV ×3 (09:54→22:04)
[2024-09-11] MEDS: Cholecalciferol (VIT D3) 25 MCG TABLET (1,000 UNITS) 50 MCG PO (09:57)
[2024-09-11] MEDS: Azithromycin 500 MG in 0.9% Normal Saline (250mL Bag) 250 ML 255 MG IV (11:30)
[2024-09-12] VITALS (20 sets, daily range): BP systolic 140–157; BP diastolic 51–78; PULSE 74–88; RESP 12–35; TEMP 36.7–37.2; O2SAT 90–96; BMI 28.2
[2024-09-12] MEDS: 0.9% Normal Saline (250mL Bag) 250 ML 15 ML IV (05:47)
[2024-09-12] MEDS: 0.9% Saline Lock 10 ML Syringe IV ×2 (05:47→18:21)
[2024-09-12] MEDS: Meropenem 1 GM in 0.9% Normal Saline (100mL MB+) 100 ML IV ×3 (05:48→22:27)
[2024-09-12 06:44] LABS: Hematocrit 42.7 % (37-47); Hemoglobin 13.2 g/dL (12.0-15.0); Immature Granulocytes Count 0.050 X10^3/uL (0.0-0.0); Mean Corp Hgb Conc 30.9 g/dL (32-36); Mean Corpuscular Volume 98.2 fL (81-99); Mean Platelet Vol. 10.4 fl (6.2-12.0); NRBC Flagged by Analyzer 0 % (0-5); Platelet Count 197 K/mm3 (150-450); RBC Distribution Width CV 13.4 % (11.6-14.6); RBC Distribution Width SD 48.1 fl (35.1-43.9); Red Blood Count 4.35 M/mm3 (4.2-5.4); White Blood Count 10.5 K/mm3 (4.4-11.0)
[2024-09-12 07:30] LABS: Anion Gap 11 (5-15); BUN 13 mg/dL (4-19); BUN/Creat Ratio 17.6 RATIO (10-20); Calcium,Total 9.6 mg/dL (7.6-11.0); Carbon Dioxide 34.9 mmol/L (21.0-32.0); Chloride 101 mmol/L (98-108); Estimated Creatinine Clearance 47.41 ml/min (50-250); Glucose 111 mg/dL (70-99); Potassium 3.6 mmol/L (3.3-5.1)
[2024-09-12] MEDS: Dextrose 5%-Water (1000mL Bag) 1,000 ML 75 ML IV (10:45)
[2024-09-12] MEDS: Cholecalciferol (VIT D3) 25 MCG TABLET (1,000 UNITS) 50 MCG PO (10:45)
[2024-09-12] MEDS: Azithromycin 500 MG in 0.9% Normal Saline (250mL Bag) 250 ML 255 MG IV (10:51)
[2024-09-12] MEDS: guaiFENesin 10 ML UDC (200MG/10ML) PO (22:52)
[2024-09-13] VITALS (14 sets, daily range): BP systolic 128–150; BP diastolic 48–69; PULSE 72–96; RESP 12–36; TEMP 36.8–37.2; O2SAT 92–96; BMI 33.3
[2024-09-13] MEDS: Meropenem 1 GM in 0.9% Normal Saline (100mL MB+) 100 ML IV ×2 (06:29→15:59)
[2024-09-13] MEDS: guaiFENesin 10 ML UDC (200MG/10ML) PO ×2 (06:33→15:56)
[2024-09-13 06:50] LABS: Hematocrit 39.6 % (37-47); Hemoglobin 12.3 g/dL (12.0-15.0); Immature Granulocytes Count 0.050 X10^3/uL (0.0-0.0); Mean Corp Hgb Conc 31.1 g/dL (32-36); Mean Corpuscular Volume 98.0 fL (81-99); Mean Platelet Vol. 10.4 fl (6.2-12.0); NRBC Flagged by Analyzer 0 % (0-5); Platelet Count 197 K/mm3 (150-450); RBC Distribution Width CV 13.6 % (11.6-14.6); RBC Distribution Width SD 49.2 fl (35.1-43.9); Red Blood Count 4.04 M/mm3 (4.2-5.4); White Blood Count 9.5 K/mm3 (4.4-11.0)
[2024-09-13 06:53] LABS: Anion Gap 7 (5-15); BUN 15 mg/dL (4-19); BUN/Creat Ratio 21.6 RATIO (10-20); Calcium,Total 9.3 mg/dL (7.6-11.0); Carbon Dioxide 38.7 mmol/L (21.0-32.0); Chloride 97 mmol/L (98-108); Estimated Creatinine Clearance 51.62 ml/min (50-250); Glucose 127 mg/dL (70-99); Potassium 3.3 mmol/L (3.3-5.1)
[2024-09-13] MEDS: 0.9% Saline Lock 10 ML Syringe IV ×2 (10:35→17:57)
[2024-09-13] MEDS: Cholecalciferol (VIT D3) 25 MCG TABLET (1,000 UNITS) 50 MCG PO (10:38)
[2024-09-14] VITALS (13 sets, daily range): BP systolic 118–155; BP diastolic 64–104; PULSE 74–85; RESP 12–26; TEMP 36.2–37.1; O2SAT 90–98; BMI 32.6
[2024-09-14] MEDS: Sodium Chloride 0.65% 1 SPRAY SPRAY.BTL 2 SPRAY NASAL (03:44)
[2024-09-14] MEDS: Oxymetazoline 0.05% 1 SPRAY SPRAY.BTL 2 SPRAY NASAL (04:11)
[2024-09-14 06:48] LABS: Hematocrit 39.9 % (37-47); Hemoglobin 12.5 g/dL (12.0-15.0); Immature Granulocytes Count 0.050 X10^3/uL (0.0-0.0); Mean Corp Hgb Conc 31.3 g/dL (32-36); Mean Corpuscular Volume 96.1 fL (81-99); Mean Platelet Vol. 10.5 fl (6.2-12.0); NRBC Flagged by Analyzer 0 % (0-5); Platelet Count 228 K/mm3 (150-450); RBC Distribution Width CV 13.2 % (11.6-14.6); RBC Distribution Width SD 46.5 fl (35.1-43.9); Red Blood Count 4.15 M/mm3 (4.2-5.4); White Blood Count 8.4 K/mm3 (4.4-11.0)
[2024-09-14 07:05] LABS: Anion Gap 9 (5-15); BUN 17 mg/dL (4-19); BUN/Creat Ratio 26.9 RATIO (10-20); Calcium,Total 9.4 mg/dL (7.6-11.0); Carbon Dioxide 39.4 mmol/L (21.0-32.0); Chloride 97 mmol/L (98-108); Estimated Creatinine Clearance 51.02 ml/min (50-250); Glucose 101 mg/dL (70-99); Potassium 3.1 mmol/L (3.3-5.1)
[2024-09-14] MEDS: Potassium Chloride 10mEq/100mL 10 MEQ/100 ML IV.SOLN. 100 MEQ IV BOLUS ×4 (08:44→12:33)
[2024-09-14] MEDS: 0.9% Saline Lock 10 ML Syringe IV ×2 (18:47→21:34)
[2024-09-15] VITALS (10 sets, daily range): BP systolic 120–179; BP diastolic 52–91; PULSE 72–86; RESP 18–30; TEMP 36.3–36.8; O2SAT 93–97; BMI 33.7
[2024-09-15 06:48] LABS: Hematocrit 44.8 % (37-47); Hemoglobin 13.2 g/dL (12.0-15.0); Immature Granulocytes Count 0.060 X10^3/uL (0.0-0.0); Mean Corp Hgb Conc 29.5 g/dL (32-36); Mean Corpuscular Volume 101.1 fL (81-99); Mean Platelet Vol. 10.1 fl (6.2-12.0); NRBC Flagged by Analyzer 0 % (0-5); Platelet Count 218 K/mm3 (150-450); RBC Distribution Width CV 13.3 % (11.6-14.6); RBC Distribution Width SD 50.3 fl (35.1-43.9); Red Blood Count 4.43 M/mm3 (4.2-5.4); White Blood Count 7.5 K/mm3 (4.4-11.0)
[2024-09-15 07:12] LABS: Anion Gap 11 (5-15); BUN 21 mg/dL (4-19); BUN/Creat Ratio 28.4 RATIO (10-20); Calcium,Total 9.6 mg/dL (7.6-11.0); Carbon Dioxide 31.7 mmol/L (21.0-32.0); Chloride 98 mmol/L (98-108); Estimated Creatinine Clearance 51.97 ml/min (50-250); Glucose 89 mg/dL (70-99); Potassium 4.0 mmol/L (3.3-5.1)
[2024-09-15] MEDS: 0.9% Saline Lock 10 ML Syringe IV (10:42)
[2024-09-15] MEDS: Cholecalciferol (VIT D3) 25 MCG TABLET (1,000 UNITS) 50 MCG PO (10:45)
[2024-09-15] MEDS: guaiFENesin 10 ML UDC (200MG/10ML) PO (14:00)
== END 2024-09-15 19:58 | disposition skilled nursing facility (03) | DRG 177 ==
LOC: ED 11:31 → PCU 11:43 → MS3 09-07 18:42 → PCU 09-08 03:42
PROVIDERS: Admitting Provider Internal Medicine; Emergency Provider Emergency Medicine; PCP Family Medicine; Visit Provider Student in an Organized Health Care Education/Training Program
DX: J69.0 Pneumonitis due to inhalation of food and vomit (principal); G92.8 Other toxic encephalopathy; E87.0 Hyperosmolality and hypernatremia; I50.32 Chronic diastolic (congestive) heart failure; J96.11 Chronic respiratory failure with hypoxia; N39.0 Urinary tract infection, site not specified; B95.2 Enterococcus as the cause of diseases classified elsewhere; Z66 Do not resuscitate; G35 Multiple sclerosis; I48.0 Paroxysmal atrial fibrillation; F03.B0 Unspecified dementia, moderate, without behavioral disturbance, psychotic disturbance, mood disturbance, and anxiety; I11.0 Hypertensive heart disease with heart failure; E66.811 Obesity, class 1; E78.5 Hyperlipidemia, unspecified; G47.33 Obstructive sleep apnea (adult) (pediatric); I25.10 Atherosclerotic heart disease of native coronary artery without angina pectoris; E87.6 Hypokalemia; G50.0 Trigeminal neuralgia; K59.09 Other constipation; R13.12 Dysphagia, oropharyngeal phase; Z68.34 Body mass index [BMI] 34.0-34.9, adult; Z95.5 Presence of coronary angioplasty implant and graft; Z91.198 Patient's noncompliance with other medical treatment and regimen for other reason; Z99.81 Dependence on supplemental oxygen; Z79.899 Other long term (current) drug therapy; Z87.891 Personal history of nicotine dependence
CPT/HCPCS: 36415; 36600; 70450; 71045; 71046; 74230; 80048; 80053; 81001; 82140; 82803; 83605; 83735; 84100; 84443; 85025; 85610; 85730; 87040; 87070; 87077; 87086; 87088; 87186; 87205; 87449; 92526; 92610; 92611; 93005; 94002; 94003; 94640; 94668; 94762; 97802; 97803; 99252; 99285; J2185; A4216; G0463; J1938

== ENCOUNTER 2024-11-01 01:26 | Emergency (ER) | payer MEDICARE, MEDICAID, SELFPAY ==
[2024-11-01] VITALS (8 sets, daily range): BP systolic 98–143; BP diastolic 47–70; PULSE 49–58; RESP 13–21; TEMP 36.4–37.1; O2SAT 96–100; BMI 32.2
--- NOTE | 2024-11-01 02:08 | EX.ED.DYSGE1 ---
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, bilateral Chronic diastolic (congestive) heart failure Dysphagia CPAP (continuous positive airway pressure) dependence Former smoker Hypertension Swallowing dysfunction senior care current use of amiodarone LAURITA (obstructive sleep apnea) Restrictive airway disease Dementia GERD (gastroesophageal reflux disease) Chronic GI bleeding Essential hypertension Type 2 diabetes mellitus Iron deficiency anemia Diastolic CHF Ulcer of left lower extremity with fat layer exposed Ulcer of right lower extremity with fat layer exposed Venous insufficiency of both lower extremities History of DVT (deep vein thrombosis) Presence of stent in coronary artery (~08/29/12) Trigeminal neuralgia Carcinoma of lip Diabetic ulcer of both lower extremities Atherosclerotic heart disease of [place] coronary artery without angina pectoris Multiple sclerosis Peripheral vascular disease Paroxysmal atrial fibrillation Hyperlipidemia Home Medications Medication Instructions Recorded Last Taken Type amlodipine 2.5 mg tablet 2.5 mg PO DAILY HTN 11/22/21 Unknown History acetaminophen 325 mg tablet 650 mg PO Q6H PRN PAIN AND FEVER 01/31/22 Unknown History bisacodyl 10 mg rectal suppository 10 mg WA DAILY PRN Constipation 01/31/22 Unknown History estradiol 0.01% (0.1 mg/gram) 1 applic vaginal QPM UTI 01/31/22 Unknown History vaginal cream furosemide 40 mg tablet 40 mg PO DAILY chf 01/31/22 Unknown History magnesium hydroxide 400 mg/5 mL 30 ml PO DAILY PRN Constipation 01/31/22 Unknown History oral suspension (Milk of Magnesia) mineral oil 118 ml WA DAILY PRN Constipation 01/31/22 Unknown History atorvastatin 20 mg tablet 20 mg PO QHS cholesterol 05/19/22 Unknown History hydralazine 50 mg tablet 50 mg PO TID bp 05/19/22 Unknown History amiodarone 100 mg tablet 100 mg PO DAILY afib 01/08/23 Unknown History gabapentin 800 mg tablet 800 mg PO TID nerves 01/08/23 Unknown History ondansetron HCl 4 mg tablet 4 mg PO Q4H PRN Nausea And Vomiting 08/13/23 Unknown History carbamazepine 200 mg tablet 200 mg PO BID trigeminal neuralgia 12/13/23 Unknown Rx #60 tabs cholecalciferol (vitamin D3) 50 50 mcg PO QDAY supplement #30 tabs 12/13/23 Unknown Rx mcg (2,000 unit) tablet ferrous sulfate 325 mg (65 mg 325 mg PO QDAY supplement #30 tabs 12/23/23 Unknown Rx iron) tablet guaifenesin 100 mg tablet 600 mg PO Q12H PRN congestion 02/07/24 Unknown History albuterol sulfate 2.5 mg/3 mL 2.5 mg inhalation Q2H PRN 09/06/24 Unknown History (0.083 %) solution for nebulization SOB/Wheezing donepezil 10 mg tablet 10 mg PO QHS dementia 09/06/24 Unknown History phenytoin sodium extended 100 mg 100 mg PO BID Trigeminal neuralgia 10/27/24 Unknown Rx capsule #60 caps baclofen 10 mg tablet 10 mg PO BID trigeminal neuralgia 11/01/24 Unknown History potassium chloride 20 mEq 40 meq PO DAILY 11/01/24 Unknown History tablet,extended release(part/cryst) (Klor-Con M) Allergy/AdvReac Type Severity Reaction Status Date / Time codeine Allergy Unknown Hives Verified 08/05/24 13:59 cefazolin Allergy Rash Verified 08/05/24 13:59 ciprofloxacin (From Cipro) Allergy Hives Verified 08/05/24 13:59 ciprofloxacin HCl (From Allergy Hives Verified 08/05/24 13:59 Cipro) Latex, Natural Rubber Allergy Rash Verified 08/05/24 13:59 Penicillins (PCN) Allergy Hives Verified 08/05/24 13:59 vancomycin Allergy Angioedema Verified 08/05/24 13:59 adhesive tape AdvReac Rash Verified 08/05/24 13:59 Family History Father Heart disease Cancer prostate Mother Hypertension Cancer mets but unsure where to Breast cancer Brother Diabetes Hypertension Surgical History History of appendectomy History of cholecystectomy History of coronary artery stent placement History of coronary artery bypass surgery (~01/02/11) S/P percutaneous endoscopic gastrostomy (PEG) tube placement Presence of coronary angioplasty implant and graft (~08/29/12) History of cataract surgery History of hernia repair History of cholecystectomy History of total hysterectomy History of tonsillectomy and adenoidectomy Social History housing: alf Smoking Status: Former smoker how long ago did patient quit smokin alcohol intake: never substance use type: does not use caffeine: Yes Type: coffee Number of servings: 1 additional social history: DOES NOT USE ASPIRIN DOES US IBUPROFEN EXAM Physical Exam Const Vital Signs: 11/01/24 01:28 11/01/24 02:36 11/01/24 03:00 Temperature 98.5 F 98.2 F 98 F Temperature Source Oral Oral Oral Pulse Rate 58 L 55 L 54 L Respiratory Rate 18 14 13 Blood Pressure 143/50 H 133/57 H 108/59 L Blood Pressure Mean 81 82 75 Pulse Ox 97 97 100 Oxygen Delivery Method Nasal Cannula Nasal Cannula Nasal Cannula Oxygen Flow Rate (L/min) 2 2 2 11/01/24 03:31 11/01/24 04:21 11/01/24 05:00 Temperature 98.7 F Temperature Source Temporal Pulse Rate 57 L 51 L 51 L Respiratory Rate 16 18 21 H Blood Pressure 98/50 L 104/47 L Blood Pressure Mean 66 66 Pulse Ox 100 97 96 Oxygen Delivery Method Room Air Nasal Cannula Oxygen Flow Rate (L/min) MDM MDM MDM Narrative Medical decision making narrative: HISTORY OF PRESENT ILLNESS: Chief complaint: Confusion 79-year-old female history of hypertension, bladder dysfunction, CHF, neuralgia, LAURITA, GERD, type diabetes, peripheral vascular disease, A-fib presents with confusion. Per EMS patient has been reported by nurse, increased confusion hallucinations. The patient was found on the floor unknown the patient fell called out of bed. Patient is currently antibiotics for UTI and currently wears 2 L O2 at baseline she is a DNR CCA in terms of CODE STATUS. REVIEW OF SYSTEMS: Pertinent positives: Denies any complaints Pertinent negatives: None PHYSICAL EXAM: Nursing triage notes reviewed, Vital signs reviewed Constitutional: please see mdm HENT: MMM Eyes: Pupils equal round and reactive to light, Extraocular muscles intact Neck: No stridor, no JVD, full neck ROM Lungs: Clear to auscultation, No wheezing or rales. No increased work of breathing, no conversational dyspnea, no accessory muscle use, no nasal flaring. No respiratory distress noted Heart: Regular rate and rhythm, No murmurs, No rubs and No gallops, 2+ distal pulses (radial, femoral, posterior tibial) in all extremities Abdomen: Soft, there is no tenderness, rigidity, rebound or guarding, no obvious peritoneal signs, no palpable pulsatile abdominal masses, no auscultated abdominal bruit : No CVAT Extremities: No edema Neuro: Patient is alert, oriented to person and place but not to time. Knew the president was. No new focal neurological deficits, cranial nerves II through XII intact, 5/5 strength in all present extremities. Intact sensation to light touch in all present extremities, 2+ reflexes bilateral patella tendons. Skin: No rash or lesions noted MEDICAL DECISION MAKING: Chief Complaint: please see HPI External records reviewed: Reviewed prior imaging: Reviewed CT scan of the brain from September 2024 which showed no acute abnormality. Reviewed prior echocardiogram from 2021 shows ejection fraction 70% stage II diastolic dysfunction. Per last ED exam from 2022 patient is baseline alert and oriented x 3. Factors affecting care: As per HPI Social determinants of health: long-term resident History obtained from others: EMS Goals of care: DNR CCA Consults: none [facility] Narrative: Patient was initially hemodynamically stable, afebrile and nontoxic-appearing saturating well on home 2 L. Exam without obvious signs of trauma. Initial neurologic exam without focal lateralizing deficits. Patient was alert and oriented to person and place but not to time which per alf is essentially her baseline although this was different than prior ED visit. I considered the following differential diagnosis: ICH, metabolic or infectious cephalopathy, intra-abdominal surgical pathology I obtained a broad lab and imaging workup to further determine if the patient was suffering from a life-threatening etiology. ALL IMAGES (IF OBTAINED) HAVE BEEN PERSONALLY REVIEWED AND INTERPRETED BY MYSELF. Initial EKG with sinus bradycardia 54, normal axis, normal intervals, no obvious STEMI, no sign of high degree heart block noted lateral T wave inversions 1 and aVL similar to prior EKGs CBC without leukocytosis, severe anemia, no thrombocytopenia. Lactate is wnl indicating no end-organ hypoperfusion and/or hypoxia. VBG without evidence of respiratory acidosis or significant CO2 retention BMP without evidence of significant electrolyte abnormalities, no anion gap, no acute kidney injury. LFTs show no evidence of hepatobiliary pathology. Urinalysis shows evidence of inflammation but no obvious infection The patient chest x-ray was read reviewed personally myself showed no acute changes however there was signs of pulmonary venous congestion which is similar to prior x-ray. No obvious pneumonia. No pneumothorax. CT scan of the brain was negative for ICH CT scan abdomen pelvis showed no acute surgical abnormalities in the abdomen did show evidence of cystitis which is the likely precipitant of her presentation. Upon reassessment patient mental status remained stable alert and oriented to person and place but not necessarily time. This is similar to baseline per EMS and alf report. Patient likely suffering from sequela of UTI. She is currently on antibiotics. She is at a alf she is safe for discharge back to alf to continue antimicrobial therapy. No clear life-limiting etiology to be ascertained here in the emergency department The patient and/or family, caregivers express understanding. The patient and/or family, caregivers agrees with the plan. Shared decision making: I will have a discussion with the patient and or visitors regarding risk/benefits of further testing or admission. They will be made aware of of the risk/benefits inherent in this decision they will be given the opportunity to voice understanding. Total critical care time today provided was at least 0 minutes. This excludes separately billable procedures. Critical care time (if documented) is secondary to the patient having high probability of clinically significant/life threatening deterioration in the patient's condition which required my urgent intervention. Impression: 1. Transient alteration in awareness 2. History of type 2 diabetes 3. UTI Dispo: Discharge back to nursing facility This note was generated with [employer] dictation software. It may contain incorrect words, spelling, and punctuation that were not noted in review of the chart prior to signing. Lab Data Labs: Laboratory Results - last 24 hr 11/01/24 11/01/24 02:30 03:00 WBC 10.4 RBC 4.57 Hgb 13.9 Hct 44.2 MCV 96.7 MCH 30.4 MCHC 31.4 L RDW Std Deviation 47.7 H RDW Coeff of Carissa 13.3 Plt Count 190 MPV 11.0 Immature Gran % (Auto) 0.500 Neut % (Auto) 68.2 Lymph % (Auto) 21.2 Mcminn % (Auto) 8.2 Eos % (Auto) 1.6 Baso % (Auto) 0.3 Absolute Neuts (auto) 7.1 Absolute Lymphs (auto) 2.21 Nucleated RBC % 0 Sodium 142 Potassium 3.4 Chloride 99 Carbon Dioxide 36.0 H Anion Gap 8 BUN 33 H Creatinine 1.01 Estim Creat Clear Calc 40.16 L Est GFR (MDRD) Non-Af 56 L BUN/Creatinine Ratio 32.3 H Glucose 115 H Lactic Acid < 1.0 Calcium 9.3 Total Bilirubin 0.26 AST 18 ALT 9 Alkaline Phosphatase 84 Total Protein 6.0 Albumin 3.3 L Globulin 2.7 Albumin/Globulin Ratio 1.2 Lipase 64 Urine Color Yellow Urine Clarity Sl. Cloudy Urine pH 5.0 Ur Specific [place] 1.015 Urine Protein 15 H Urine Glucose (UA) Normal Urine Ketones Negative Urine Occult Blood Negative Urine Nitrite Negative Urine Bilirubin Negative Urine Urobilinogen Normal Ur Leukocyte Esterase 25 H Urine RBC 0-5 SEEN Urine WBC 5-10 SEEN Ur Squamous Epith Cells 5-10 SEEN Urine Bacteria 0 SEEN Urine Mucus 0 SEEN ABG Data ABG results: ABG 11/01/24 02:42 Specimen Type [place] Sample Site Not entered O2 % 2.0 VBG pH 7.46 H VBG pO2 63 H VBG HCO3 43 H VBG Total CO2 44 H VBG O2 Sat (Calc) 92 H VBG Base Excess 19 H POC Mix VBG pCO2 Pt Tmp 59.3 H O2 Delivery Device Cannula Radiography Diagnostic Testing: Clinical Impression(s) from Imaging Studies Brain CT 11/01/24 02:12 IMPRESSION: No acute cerebrovascular abnormalities. If clinical symptoms persist, further evaluation with MRI may be considered as clinically warranted. No intra or extra-axial acute hemorrhage. Bilateral cerebral microvascular ischemic changes with brain involutional changes. Stable. Reading Location: [place] [id number] Abdomen/Pelvis CT 11/01/24 02:13 IMPRESSION: Diffuse thickening of the bladder suggestive of cystitis. Moderate amount of fecal residue in the large bowels. Moderate cardiomegaly. Moderate coronary artery calcifications. Mild left pleural effusion. Passive atelectatic airspace disease/airspace consolidation of the left lower lobe. Small sliding hiatal hernia. Diffuse thickening of the stomach suggestive of gastritis. Well-defined splenic cyst measuring 1.5 cm. Right renal nonobstructing stone measuring 14 mm, slightly increased. Moderate osteopenia. Moderate diffuse spondylosis. Prior hysterectomy. Interval appearance of pancreatic cyst at the level of the uncinate process measuring 2.5 cm. Can be followed up by MRI exam on elective basis. The gallbladder is not visualized. Mildly prominent biliary tree. Grade 1 anterolisthesis of L4 on L5. Diffuse spondylosis. [facility] Chest X-Ray 11/01/24 03:32 IMPRESSION: Increased bilateral basilar atelectatic pulmonary changes. Mild increase in central pulmonary venous congestion. Unremarkable median sternotomy wires. There is no demonstrated pleural abnormality. Enlarged cardiac silhouette. Reading Location: [place] [id number] Discharge Plan Triage Chief Complaint: Confusion ED Provider: Ahsan Nichols Dx/Rx/DC Orders Instructions: ED Confusion, ED UTIs Women Prescriptions: No Action carbamazepine 200 mg tablet 200 mg PO BID Qty: 60 6RF cholecalciferol (vitamin D3) 50 mcg (2,000 unit) tablet 50 mcg PO QDAY Qty: 30 6RF ferrous sulfate 325 mg (65 mg iron) tablet 325 mg PO QDAY Qty: 30 3RF phenytoin sodium extended 100 mg capsule 100 mg PO BID Qty: 60 3RF amlodipine 2.5 mg tablet 2.5 mg PO DAILY mineral oil Enema 118 ml WA DAILY PRN (Reason: Constipation) magnesium hydroxide [Milk of Magnesia] 400 mg/5 mL Suspension 30 ml PO DAILY PRN (Reason: Constipation) bisacodyl 10 mg Suppository 10 mg WA DAILY PRN (Reason: Constipation) estradiol 0.01 % (0.1 mg/gram) cream 1 applic VAGINAL QPM furosemide 40 mg tablet 40 mg PO DAILY acetaminophen 325 mg tablet 650 mg PO Q6H PRN (Reason: PAIN AND FEVER) ondansetron HCl 4 mg tablet 4 mg PO Q4H PRN (Reason: Nausea And Vomiting) guaifenesin 100 mg tablet 600 mg PO Q12H PRN (Reason: congestion) atorvastatin 20 MG tablet 20 mg PO QHS hydralazine 50 MG tablet 50 mg PO TID Rx Instructions: hold for bp less than 100/60 amiodarone 100 mg tablet 100 mg PO DAILY gabapentin 800 mg tablet 800 mg PO TID potassium chloride [Klor-Con M20] 20 mEq tablet,ER particles/crystals 40 meq PO DAILY baclofen 10 mg tablet 10 mg PO BID albuterol sulfate 2.5 MG/3 ML solution for nebulization 2.5 mg inhalation Q2H PRN (Reason: SOB/Wheezing) donepezil 10 mg tablet 10 mg PO QHS Primary Care Provider: Uriel Mac Referrals: Charlie Montesinos MD [Med Staff - Active Staff, Urology] Uriel Mac MD [Primary Care Provider, Family Practice] Activity Restrictions/Additional Instructions: Thank you for trusting us with your care today! There was not a clear life threatening explanation for the patient's confusion suspect related to her UTI. Her urine did not appear grossly infected today which did have some bladder inflammation on her CT scan. Please continue taking antibiotics as prescribed Please return to the emergency department if your symptoms change or worsen. Please follow with your primary care physician and urology for further outpatient evaluation and management. Print Language: Norwegian Disposition Disposition: Home, Self Care
--- NOTE | 2024-11-01 02:12 | CT_ITS ---
PROCEDURE: BRAIN/HEAD WITHOUT CONTRAST 11/01/2024 REASON FOR EXAM: CONFUSION TECHNIQUE: Procedure Code: CTBR Modality: CT Procedure: BRAIN/HEAD WITHOUT CONTRAST Coronal and Sagittal reconstruction series were provided. One or more dose reduction techniques were used (e.g., Automated exposure control, adjustment of the mA and/or kV according to patient size, use of iterative reconstruction technique. RADIATION DOSE SUMMARY: CTDI Vol 44.99 mGy DLP :846.73 mGycm COMPARISON: 06-Sep-2024 FINDINGS: Accentuated bilateral cerebral periventricular deep white matter hypodensities denoting hypoperfusion with bilateral cerebral periventricular and subcortical with possible basal ganglia ypodense foci and patches. Mota-white matter differentiation is maintained. Normal CT appearance of the posterior fossa structures. No intracerebral or extra axial hemorrhage. Asymmetrically dilated ventricular system, cortical sulci and extra-axial CSF spaces. No definite calvarial fractures. No midline shifts or deformity. The osseous structures in the skull base are unremarkable. Paranasal sinuses are unremarkable. Vascular atheromatous calcifications. CT/Brain/Head without Contrast IMPRESSION: No acute cerebrovascular abnormalities. If clinical symptoms persist, further e valuation with MRI may be considered as clinically warranted. No intra or extra-axial acute hemorrhage. Bilateral cerebral microvascular ischemic changes with brain involutional ahmadi es. Stable. Reading Location: [facility]
--- NOTE | 2024-11-01 02:13 | CT_ITS ---
PROCEDURE: ABDOMEN/PELVIS W IV CONT ONLY 11/01/2024 REASON FOR EXAM: CONFUSION, RECENT UTI TECHNIQUE: Procedure Code: [id number] Modality: CT Procedure: ABDOMEN/PELVIS W IV CONT ONLY Coronal and Sagittal reconstruction series were provided. CONTRAST: OMNIPAQUE 350 VOLUME: 100 mL One or more dose reduction techniques were used (e.g., Automated exposure control, adjustment of the mA and/or kV according to patient size, use of iterative reconstruction technique. RADIATION DOSE SUMMARY: CTDlvol: 26.45 mGy DLP: 1305 mGycm COMPARISON: CT scan on 01/02/2023. FINDINGS: Diffuse thickening of the bladder suggestive of cystitis. Moderate amount of fecal residue in the large bowels. Moderate cardiomegaly. Moderate coronary artery calcifications. Mild left pleural effusion. Passive atelectatic airspace disease/airspace consolidation of the left lower lobe. Small sliding hiatal hernia. Diffuse thickening of the stomach suggestive of gastritis. Well-defined splenic cyst measuring 1.5 cm. Right renal nonobstructing stone measuring 14 mm, slightly increased. Moderate osteopenia. Moderate diffuse spondylosis. Prior hysterectomy. Interval appearance of pancreatic cyst at the level of the uncinate process measuring 2.5 cm. Can be followed up by MRI exam on elective basis. The gallbladder is not visualized. Mildly prominent biliary tree. Grade 1 anterolisthesis of L4 on L5. Diffuse spondylosis. Unremarkable metallic hardware of the right femur. Normal liver. Normal bilateral adrenal glands. Normal size of the right kidney. There is no right renal mass. There is no right hydronephrosis. Normal visualized right ureter. Normal size of the left kidney. There is no left renal mass. There are no left renal calculi. There is no left hydronephrosis. Normal visualized left ureter. Normal small intestine. The appendix is not visualized. There is no demonstrated peritoneal fluid. Heavily calcified atheromatous plaques of the abdominal aorta. Normal inferior vena cava. Normal retroperitoneum. There is no pelvic mass lesion or lymphadenopathy. There is no pelvic fluid. CT/Abdomen/Pelvis W IV Cont ONLY IMPRESSION: Diffuse thickening of the bladder suggestive of cystitis. Moderate amount of fecal residue in the large bowels. Moderate cardiomegaly. Moderate coronary artery calcifications. Mild left pleural effusion. Passive atelectatic airspace disease/airspace consolidation of the left lower l obe. Small sliding hiatal hernia. Diffuse thickening of the stomach suggestive of gastritis. Well-defined splenic cyst measuring 1.5 cm. Right renal nonobstructing stone measuring 14 mm, slightly increased. Moderate osteopenia. Moderate diffuse spondylosis. Prior hysterectomy. Interval appearance of pancreatic cyst at the level of the uncinate process andreas suring 2.5 cm. Can be followed up by MRI exam on elective basis. The gallbladder is not visualized. Mildly prominent biliary tree. Grade 1 anterolisthesis of L4 on L5. Diffuse spondylosis. Reading Location: [facility]
--- NOTE | 2024-11-01 02:13 | EKG12_ITS ---
Test Reason : CONFUSION Blood Pressure : */* mmHG Vent. Rate : 54 BPM Atrial Rate : 54 BPM P-R Int : 186 ms QRS Dur : 90 ms QT Int : 454 ms P-R-T Axes : 56 3 145 degrees QTcB Int : 430 ms Sinus bradycardia Left ventricular hypertrophy with repolarization abnormality ( R in aVL , Lamar product ) Abnormal ECG Confirmed by MICHELLE CERVANTES ([id number]), video news editor AUREA GOULD ([id number]) on 11/03/2024 8:44:37 AM Referred By: Confirmed By: MICHELLE CERVANTES
[2024-11-01 02:45] LABS: FI02 2.0; SITE Not entered; VBG BASE EXCESS 19 mmol/L (-1.0-3.5); VBG PO2 63 mmHg (25-40); VBG SO2 92 % (50-70); VBG TCO2 44 mmol/L (23-33)
[2024-11-01 02:46] LABS: Hematocrit 44.2 % (37-47); Hemoglobin 13.9 g/dL (12.0-15.0); Immature Granulocytes Count 0.050 X10^3/uL (0.0-0.0); Mean Corp Hgb Conc 31.4 g/dL (32-36); Mean Corpuscular Volume 96.7 fL (81-99); Mean Platelet Vol. 11.0 fl (6.2-12.0); NRBC Flagged by Analyzer 0 % (0-5); Platelet Count 190 K/mm3 (150-450); RBC Distribution Width CV 13.3 % (11.6-14.6); RBC Distribution Width SD 47.7 fl (35.1-43.9); Red Blood Count 4.57 M/mm3 (4.2-5.4); White Blood Count 10.4 K/mm3 (4.4-11.0)
[2024-11-01 03:01] LABS: AST(SGOT) 18 U/L (<=31); Alanine Aminotransfer ALT/SGPT 9 U/L (<=34); Albumin, Serum 3.3 g/dL (3.4-4.8); Alkaline Phosphatase 84 U/L (35-104); Anion Gap 8 (5-15); BUN 33 mg/dL (4-19); BUN/Creat Ratio 32.3 RATIO (10-20); Calcium,Total 9.3 mg/dL (7.6-11.0); Carbon Dioxide 36.0 mmol/L (21.0-32.0); Chloride 99 mmol/L (98-108); Estimated Creatinine Clearance 40.16 ml/min (50-250); Globulin 2.7 g/dL (2.2-4.2); Glucose 115 mg/dL (70-99); Lipase 64 U/L (13-75); Potassium 3.4 mmol/L (3.3-5.1)
[2024-11-01 03:11] LABS: Mucous, Urine 0 SEEN /hpf (<or=2+)
[2024-11-01 03:29] LABS: Color, Urine Yellow (Yellow); Glucose, Dipstick Normal (Normal); Ketone-Dipstick Negative (Negative); Leukocyte Esterase-Dipstick 25 /ul (Negative); Nitrite-Dipstick Negative (Negative); Occult Blood-Urine Negative /ul (Negative); Protein-Dipstick 15 mg/dl (Negative); Specific Gravity, Urine 1.015 (1.002-1.030); Urine Bilirubin Dipstick Negative (Negative)
--- NOTE | 2024-11-01 03:32 | RAD_ITS ---
PROCEDURE: CHEST 1 VIEW (PORTABLE) 11/01/2024 REASON FOR EXAM: CONFUSION TECHNIQUE: Frontal view of the chest. COMPARISON: 09/08/2024. FINDINGS: Increased bilateral basilar atelectatic pulmonary changes. Mild increase in central pulmonary venous congestion. Unremarkable median sternotomy wires. There is no demonstrated pleural abnormality. Enlarged cardiac silhouette. Normal mediastinum and alee. Normal visualized pulmonary arteries. Atheromatous plaques of the visualized aortic arch and descending thoracic aorta. Diffuse spondylosis of the visualized thoracic spine. Normal visualized ribs, clavicles. Degenerative joint disease. There is no demonstrated abnormality of the visualized soft tissue structures of the upper abdomen. RAD/Chest 1 View (Portable) IMPRESSION: Increased bilateral basilar atelectatic pulmonary changes. Mild increase in central pulmonary venous congestion. Unremarkable median sternotomy wires. There is no demonstrated pleural abnormality. Enlarged cardiac silhouette. Reading Location: [facility]
[2024-11-01 03:42] LABS: Red Blood Cells-Urine 0-5 SEEN /hpf (0-5)
[2024-11-01 03:46] LABS: Squamous Epithelial Cells - UA 5-10 SEEN /hpf (5-10)
--- NOTE | 2024-11-01 06:50 | ED.RN ---
This RN called the [facility] and gave an updated report to nurse Honeycutt. No further questions at this time.
== END 2024-11-01 07:41 | disposition home or self-care (01) ==
PROVIDERS: Emergency Provider Emergency Medicine; PCP Family Medicine; Visit Provider Emergency Medicine
DX: R40.4 Transient alteration of awareness (principal); I50.32 Chronic diastolic (congestive) heart failure; I11.0 Hypertensive heart disease with heart failure; F03.90 Unspecified dementia, unspecified severity, without behavioral disturbance, psychotic disturbance, mood disturbance, and anxiety; E11.9 Type 2 diabetes mellitus without complications; N39.0 Urinary tract infection, site not specified; I25.10 Atherosclerotic heart disease of native coronary artery without angina pectoris; Z87.891 Personal history of nicotine dependence; E78.5 Hyperlipidemia, unspecified; K21.9 Gastro-esophageal reflux disease without esophagitis; Z66 Do not resuscitate
CPT/HCPCS: 70450; 71045; 74177; 80053; 81001; 82803; 83605; 83690; 85025; 93005; 99285; P9612; Q9967; A4216